=== PATIENT | male | born 1970 | race Caucasian/White ===

== ENCOUNTER 2017-09-30 11:30 | Outpatient (RCR) | payer MEDICARE, MEDICAID, SELFPAY ==
--- NOTE | 2017-09-25 10:21 | IE_ITS ---
Date: 09/25/17 Referring: Dr. Thu Prabhakar Diagnosis: (R) lateral epicondylitis, Tricep tendinitis SUBJECTIVE: History of Present Illness: Ever presents to PT reporting (R) lateral elbow pain beginning approximately 1 month ago without traumatic event. He states that he was working at [employer] at the time performing a lot of repetitive work , as he worked the [employer]. He has had no change in severity of symptoms since time of onset. He is (R) hand dominant. He reports pain to be constant increasing with use of (R) UE with episodic numbness in the hand with use. Pain Ratin-3/10 at rest and at worst is 7-10/10. Pain Location: Distal tricep as well as the lateral elbow into the proximal anterior forearm. Prior Level of Function: WNL Current Level of Function: Has pain with any type of gripping or grasping with (R) UE. Difficulty with heavy lifting, pain when sleeping on his (R) side. Previous Treatment: None for the elbow. Social: He just finished working at [employer] where he had worked for 10 years. 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 Comorbidities: Chronic headaches, hydrocephalis, inter cranial shunt, seizure disorder, multiple brain surgeries, (R) shoulder surgery, pt describes this as a bone spur removal. Falls in the last year: __X__ No ____Yes - How many? ____ - (if over 2, balance SM needs to be completed) Reported hospitalizations in the last year - __X__ No ____ Yes - Dates of admission/reason: Medications: Ibuprofen PRN but reports that this generally does not help his elbow discomfort. Quality of Life: __X__ Good Standardized Measures: DASH score: __46% Disability__ OBJECTIVE: Posture: Is poor with forward head, depression of (R) shoulder girdle compared to the (L), but with (B) shoulder protrusion, (R) scapular protrusion more than the (L) due to excessive (R) shoulder depression. With verbal cueing, he is able to correct his posture and has good symmetry, but he does not maintain this well voluntarily. Observation: Isometrical arm position, hypertrophy of the (R) extensor group musculature of the forearm. Gait: WNL Palpation: Tenderness along the proximal extensor group of the (R) forearm and common extensor tendon, as well as the medial fascia of the (R) elbow. Edema: None Girth measurements: Symmetrical (L) side despite visual hypertrophy. ROM: (R) wrist is full with pain at end range (R) wrist flexion and extension Full Elbow WNL Shoulder AROM 160* flexion/abduction due to pain in the (R) lateral elbow IR reaches L2 verus T8 at the (L) due to elbow pain ER reaches C7 verus T5 at the (L) again due to elbow pain C-spine mobility is WNL and non irritable (L) UE is WNL PROM (R) shoulder is full without exacerbation of (R) elbow as well as elbow and wrist movements being full with soft tissue drawing of the common extensor group at end range passive wrist flexion. Exacerbated with combination of finger flexion. Digits WNL and non irritable. Strength: (R) shoulder flexion and abduction is 4+/5 pain produced in the elbow IR and ER 5/5 with pain producing in the elbow Abduction and Extension is WNL Biceps/Triceps 5/5 with pain provocation at the elbow Wrist flexion is 5/5 no pain Wrist extension 4+/5 with pain resulting in the medial elbow Lumbricals and supination/pronation 5/5 and minimally symptomatic Neuro: WNL throughout (R) UE. Balance: N/A Special Tests: Positive lateral epicondylitis testing via resistance to (R) wrist extension, extensor digitorum with positive pain provocation, negative phalens and negative carpal tunnel compression, positive pain with over pressure stretching to the common extensor group. Negative Field Mahesh Impingement Testing, Negative TOS. Treatment: IE: [id number] Patient Education: HEP developed and reviewed see chart for specifics. KX applied to all codes ____ Yes __X__ No Manual therapy: ([id number]). IASTM down regulation throughout the (R) tricep and (R) common extensor group with fascia on stretch, CFM desensitization along the common extensor tendon and deep trigger release along the common extensor group of the (R) forearm. Rock Tape application with fascia on stretch for the common extensor group. Pt was instructed to use (R) commercial cock up splint which he already currently owns at all times unless he is at rest. He is also to wear this at night time. Also educated in the proper posture of the (R) shoulder and this allows for decreased demand of (R) common extensor group firing and reduce the strain to the elbow. Direct treatment time: 50 minutes Total treatment time: 50 minutes ASSESSMENT: Patient is a 46-year-old male, referred for PT services with the diagnosis of (R ) lateral epicondylitis and tricep tendinitis. Patient presents with clinical signs and symptoms consistent with (R) lateral epicondylitis secondary to (R) shoulder girdle weakness and (R) UE movement dysfunction, as demonstrated by the following impairment level findings: Hypertrophy of the (R) common extensor group, soft tissue dysfunction throughout the (R) UE particularly through the (R ) common extensor group and tricep. Active mobility deficits of the (R) shoulder , intrinsic and scapular stability weakness of the (R) shoulder girdle. Pain with sleeping on his (R) side, difficulty manipulating objects with the (R) hand including repetitive movements, gripping grasping and heavy object manipulation. Patient is assessed as: __X__ Low 19460 __[]__ Moderate 43516 __[]__ High 14371 complexity, based on the following: History: X See comorbidities and social history. Examination: X See above for functional limitations and impairments. Presentation: X Stable Decision-Making: X Low complexity 46 % Disability based on DASH __X__ Patient requires skilled PT intervention to remediate the above functional limitations to return to: __X__ Premorbid level of function __X__ Return to full functional mobility Prognosis: __X__ Excellent G-Codes: Patient's primary functional limitation is in the category of: __X__ Carrying, moving and handling objects: [id number] Projected goal: __X__ Carrying, moving, and handling objects -[id number] STG: __4__ weeks. 1. DASH improved to 20% disability. 2. No sleep disruption related to (R) UE. 3. Completing basic activities such as eating, writing, drinking a full glass of water and light to moderate activities without pain exceeding a 2/10 in the ( R) elbow. LTG: __8__ weeks. __X__ Return to premorbid level of function. __X__ Return to full, pain-free, functional mobility. __X__ Independent with self-maintenance program. PLAN: Patient to be seen 2 x per week, for 8 weeks, adjusting frequency of visits per patient symptoms and response to treatment. Treatment to include: X Manual therapy - [id number]: For soft tissue mobilization throughout the (R ) UE of the involved mentioned structures, soft tissue stretching, rock taping application. X Therapeutic exercise - [id number]- For gross (R) UE strengthening, and astabilization efforts with focus on eccentric control of the (R) common extensor group and (R) shoulder girdle stabilization and postural improvements. Thank you for this referral. Please do not hesitate to contact me with any questions or concerns regarding this patient's plan of care. Dr. Andino please sign below if you are in agreement with this patients plan of care, cc: Ray Andino MD
--- NOTE | 2017-09-30 12:26 | PTTR_ITS ---
DATE: 09/30/17 SUBJECTIVE: Had a day relief of pain following last treatment. 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 Work is generally where pain is exacerbated due to handling tray, gripping activities, etc. Pain remains local to R lateral epicondyle. OBJECTIVE: KX applied to all codes N/A Manual therapy: ([id number]). IASTM down regulation R bicep, forearm extensor group and CFM at common extensor tendon Extensor group stretching of R forearm Ulnar nerve flossing, x 10 Deep TPR extensor muscle belly Therapeutic procedures ([id number]). * HEP review: * See flow sheet: * Provided skilled instruction in proper exercise performance: * Provided skilled manual cues to facilitate proper muscle recruitment and/ or movement pattern: * x Other: Scapular and postural correction series in prone: Shoulder flexion, extension, and ER with 0#, 20x, verbal and manual cues for proper lat and lower trap recruitment as appropriate. These are added to HEP. Patient instructed to don wrist immobilizer at all times at work, just use larger glove to cover immobilizer, if this works with his work demands. Direct treatment time: 30 minutes Total treatment time: 30 minutes
== END 2017-10-23 23:59 | disposition home or self-care (01) ==
LOC: PT 11:30
PROVIDERS: PCP General Practice; Referring Provider Student in an Organized Health Care Education/Training Program; Visit Provider Student in an Organized Health Care Education/Training Program
DX: M77.11 Lateral epicondylitis, right elbow (principal); M79.89 Other specified soft tissue disorders
CPT/HCPCS: 97110; 97140; 97161

== ENCOUNTER 2017-10-03 10:07 | Emergency (ER) | payer MEDICARE, MEDICAID, SELFPAY ==
[2017-10-03 10:27] VITALS: BP 147/88; PULSE 88; RESP 16; TEMP 37.1; O2SAT 95
--- NOTE | 2017-10-03 10:46 | ED.GENADUL ---
Disposition Clinical Impression: Knee strain Disposition: HOME Condition: Fair Instructions: Swollen Knee Joint (ED) Additional Instructions: Encourage rest, ice, elevation. Tylenol and/or ibuprofen as needed for discomfort. Continue with Perez wrap to help support the need to help with discomfort. Please follow-up with primary care in the next 2 weeks if pain persists. If you develop new or worsening symptoms seek care urgently once again. Advance activities as tolerated. Referrals: Cl Bletran MD [Primary Care Provider] - Medical Decision Making - Medical Decision Making Patient presents today with chief complaint of right knee pain after twisting this yesterday. Reports that he was trying to get out of a pool when he twisted the knee and noted some minimal discomfort. States that today his pain has since increased. Ambulated into the department minimally antalgic gait. Exam is fairly benign. He has some diffuse discomfort but no effusion, no ligamentous laxity and no abnormality noted on exam. No soft tissue swelling is noted. Advised the patient and he strained his knee yesterday. Encourage rest, ice, elevation. He does not take anything for his discomfort as of yet. I have asked nursing staff to give patient Tylenol and ibuprofen to help with his discomfort. Patient reports an Perez wrap to help support the knee and help with discomfort. Advised to follow-up with primary care in the next 2 weeks for reevaluation. We discussed new/worsening symptoms when to seek care urgently once again. All of his questions and concerns were addressed and he is in agreement with this plan. History of Present Illness - General Chief complaint: Orthopedic Stated complaint: RT KNEE INJURY Time Seen by Provider: 10/03/17 10:44 Source: patient, RN notes reviewed Mode of arrival: ambulatory Limitations: no limitations - History of Present Illness Initial comments: Patient is a 46-year-old male presents today with chief complaint of right knee pain. He reports that yesterday, while swimming in a pool, he twisted his right knee. States that while trying to get out of the pool he place his knee up on the edge and noted a faint amount of discomfort along the medial and lateral aspect of the knee. Denies striking the knee. No true trauma. No pop. Patient reports that he has hyperextended his knee in the past and he did undergo physical therapy for this knee while in high school. No previous surgeries. No torn ligaments. Patient denies allergic choking incident. States that yesterday the pain was fairly minimal but when he woke this morning it was much worse and rates the pain at 8 or 9 out of 10. Denies any numbness or tingling. Has been ambulating with an antalgic gait. - Related Data Carbamazepine [Tegretol] 400 mg PO HS 10/22/12 Carbamazepine [Tegretol] 600 mg PO DAILY 10/22/12 Levothyroxine [Levothroid] 1.25 mcg PO HS 12/17/14 Amitriptyline [Elavil] 25 mg PO HS 04/10/16 Gemfibrozil 600 mg PO BID 04/10/16 Testosterone Cypionate 1.2 ml IM Q14D 04/10/16 Multivitamin [Animal Chews] 1 each PO DAILY 11/28/16 Acetaminophen [Acetaminophen Extra Strength] 500 mg PO Q6H PRN PRN #80 tablet 12/02/16 Sertraline HCl [Zoloft] 25 mg PO DAILY tab-cap 05/29/17 Ibuprofen 800 mg PO TID PRN PRN #90 tablet 09/01/17 Allergies Allergy/AdvReac Type Severity Reaction Status Date / Time latex Allergy Intermediate hives with Unverified 10/03/17 10:30 latex powdered gloves Penicillins Allergy Intermediate Hives Unverified 10/03/17 10:30 vancomycin Allergy Mild Skin Rash Unverified 10/03/17 10:30 Review of Systems Constitutional: no symptoms reported Respiratory: no symptoms reported Musculoskeletal: as per HPI Skin: denies: rash, lesions, change in color Neurological: as per HPI, abnormal gait. denies: numbness, paresthesias Past Medical History - Past Medical History Medical history: hypertension, seizures Migraines, hypothyroid, hydrocephalus. Surgical history: cholecystectomy, other (VP INFORMATICS shunt) Family history: other (Noncontributing family history) - Social History Alcohol use: none Drug use: none General Exam - General Limitations: no limitations General appearance: alert, in no apparent distress - Eye Eye exam: Present: normal apperance - Respiratory Respiratory exam: Absent: respiratory distress - Extremities Exam Extremities exam: Present: full ROM, tenderness, normal capillary refill. Absent: normal inspection (Exam of the patient's left lower extremity is significant for diffuse discomfort with palpation. No effusion. No discoloration. Full range of motion. Ligaments intact with varus and valgus stress testing as well as Manish exam. No pain elicited with ligamentous testing. Patient is able to straight leg raise. Pain is primarily along the medial lateral aspect of the joint line.), pedal edema, joint swelling, calf tenderness - Neurological Exam Neurological exam: Present: alert, abnormal gait (Patient is a minimally antalgic gait) - Psychiatric Psychiatric exam: Present: normal affect, normal mood - Skin Skin exam: Present: warm, dry, intact, normal color Course Vital Signs - 24 hr 10/03/17 10:27 Temperature 37.1 C Pulse 88 Respiratory 16 Rate Blood Pressure 147/88 Pulse Oximetry 95
[2017-10-03] MEDS: Acetaminophen 500 MG TAB 1000 MG PO (10:49)
[2017-10-03] MEDS: Ibuprofen 600 MG TAB PO (10:50)
== END 2017-10-03 10:53 | disposition home or self-care (01) ==
PROVIDERS: Emergency Provider Emergency Medicine; PCP General Practice
DX: S83.91XA Sprain of unspecified site of right knee, initial encounter (principal); X50.9XXA Other and unspecified overexertion or strenuous movements or postures, initial encounter; Y93.11 Activity, swimming; I10 Essential (primary) hypertension
CPT/HCPCS: 99282 ×2

== ENCOUNTER → 2017-10-30 08:00 | Outpatient (BNVA) | payer MEDICARE, MEDICAID, SELFPAY | PROVIDERS: PCP General Practice; Referring Provider General Practice; Visit Provider Student in an Organized Health Care Education/Training Program | DX: M77.11 Lateral epicondylitis, right elbow (principal) | CPT/HCPCS: 99213; NC OV ==

== ENCOUNTER 2017-11-10 14:10 | Emergency (ER) | payer MEDICARE, MEDICAID, SELFPAY ==
[2017-11-10 14:14] VITALS: BP 153/105; PULSE 106; RESP 16; TEMP 37.1; O2SAT 96
--- NOTE | 2017-11-10 14:19 | DI.CT_ITS ---
SYMPTOMS/DIAGNOSIS: SHUNT, HEADACHE CRANIAL CT: A right frontal shunt is again demonstrated when compared with previous images. The patient is status post right frontal craniotomy. There is no evidence of an intra/extra-axial hemorrhage or edema. The ventricles are unremarkable. There is no skull fracture. The paranasal sinuses and mastoid air cells are normal. SUMMARY: No acute intracranial abnormality is demonstrated.
--- NOTE | 2017-11-10 14:33 | W.ED.GENAD ---
Discharge Plan Disposition Patient Disposition: HOME Discharge Details Chief Complaint: Headache Clinical Impression: Headache, Abdominal pain Primary Care Provider: Cl Beltran ED Provider: David Yadav Home Meds and New Rx's Prescriptions: Continue sertraline [Zoloft] 25 MG tablet 25 mg PO DAILY RF: 0 ibuprofen 800 MG tablet 800 mg PO TID PRN PRNQty: 90 RF: 3 carbamazepine [Tegretol] 200 MG tablet 400 mg PO HS RF: 0 carbamazepine [Tegretol] 200 MG tablet 600 mg PO DAILY RF: 0 levothyroxine 25 MCG tablet 1.25 mcg PO HS RF: 0 pediatric multivitamin [ANIMAL CHEWS] 1 EACH tablet,chewable 1 ea PO DAILY RF: 0 acetaminophen [Acetaminophen Extra Strength] 500 MG tablet 500 mg PO Q6H PRN PRNQty: 80 RF: 3 testosterone cypionate 100 MG/ML oil 1.2 ml IM Q14D RF: 0 amitriptyline 25 MG tablet 25 mg PO HS RF: 0 gemfibrozil 600 MG tablet 600 mg PO BID RF: 0 Discharge Instructions Instructions: Abdominal Pain (ED), General Headache (ED) Additional Instructions: Please follow-up with your primary care physician and neurosurgeon. Call tomorrow to arrange follow-up. Return to the ER for any worsening or new concerning symptoms. CT imaging of your abdomen revealed an indeterminate 10 mm low-density lesion within the left hepatic lobe. Be sure to discuss this finding with your primary care physician in follow-up. You may need additional diagnostic imaging in the future. Referrals: Cl Beltran MD [Primary Care Provider] - Medical Decision Making [facility] Narrative Medical decision making narrative: 14:40 --46-year-old male with history of hydrocephalus status post shunt placement, here with headache over the past 2 weeks as well as right upper quadrant abdominal pain. Patient has required 45 shunt revisions in the past. Patient feels his symptoms are currently related to shunt dysfunction. Plan to obtain shunt series as well as CT head. --CT head interpreted by radiology: No acute findings. I spoke with Dr. Newman to discuss shunt series and he notes no acute findings. Labs reviewed and nondiagnostic. I reviewed the results with the patient. I offered analgesia and patient declined. We will send imaging to [facility] and I have requested neurosurgical consultation. 17:00 --I spoke with the neuro surgeon pony ride operator at [facility], I relayed the patient's history, exam findings, diagnostic results, and he reviewed the shunt series and CT head. He recommends obtaining additional abdominal CT imaging to assess for cyst in relation to shunt. If no cyst, he recommends outpatient follow-up. Patient reassessed and has remained stable. He agrees to Compazine and benadryl IV. 18:15 --CT of the abdomen and pelvis interpreted by radiology: No acute findings, TECHNICAL PHOTOGRAPHER shunt catheter tip in the right midabdomen, no significant fluid collection, indeterminate 10 mm diameter low-density lesion in the left hepatic lobe, follow-up abdominal CT or MR in 6 months is recommended. Results were conveyed to the patient. Patient reassessed: He notes pain has improved after medication. Patient understands importance of timely follow-up and that he should return immediately should you have any worsening or new concerning symptoms. Lab Data Lab results reviewed: Yes I reviewed the patient's lab results. Laboratory Tests 11/10/17 11/10/17 11/10/17 14:35 14:35 15:51 WBC 9.26 RBC 5.62 Hgb 18.0 H Hct 51.7 H MCV 92.0 MCH 32.0 MCHC 34.8 RDW 12.1 Plt Count 316 MPV 9.3 Immature Gran % 0.1 Neutrophils % 78.0 Lymphocytes % 14.8 Monocytes % 6.4 Eosinophils % 0.4 Basophils % 0.3 Absolute Neutrophils 7.22 H Absolute Lymphocytes 1.37 Absolute Monocytes 0.59 Absolute Eosinophils 0.04 Absolute Basophils 0.03 Sodium 140 Cancelled Potassium 3.9 Cancelled Chloride 102 Cancelled Carbon Dioxide 26.9 Cancelled Anion Gap 11.1 H Cancelled BUN 12 Cancelled Creatinine 1.16 Cancelled Estimated GFR/1.73 m2 >= 60.00 Cancelled Glucose 120 H Cancelled Calcium 8.9 Cancelled Magnesium Cancelled Total Bilirubin 0.3 Cancelled AST 13 L Cancelled ALT 18 Cancelled Alkaline Phosphatase 102 Cancelled Troponin I Cancelled Total Protein 8.8 H Cancelled Albumin 4.4 Cancelled HPI - General Adult General Mode of arrival: ambulatory. Date/Time Provider Initiated Documentation: 11/10/17 14:18. Limitations to Documentation: no limitations. Information obtained by: patient. HPI Narrative: 46-year-old male with history of hydrocephalus status post shunt placement, shunt has required 45 revisions in the past, here with chief complaint of headache. Patient notes generalized headache that feels like pressure. Pain is moderate and rated 6/10. Pain is worse when he attempts to look up. He has associated pain in his right upper abdomen. Patient is concerned that he may have an issue with his shunt. He states that he has had same symptoms in the past with shunt obstruction. Patient denies associated numbness or weakness. No fevers. Related Data Home Medications Medication Instructions Recorded Confirmed carbamazepine [Tegretol] 400 mg PO HS 10/22/12 11/10/17 carbamazepine [Tegretol] 600 mg PO DAILY 10/22/12 11/10/17 levothyroxine 1.25 mcg PO HS 12/17/14 11/10/17 amitriptyline 25 mg PO HS 04/10/16 10/30/17 gemfibrozil 600 mg PO BID 04/10/16 11/10/17 testosterone cypionate 1.2 ml IM Q14D 04/10/16 11/10/17 pediatric multivitamin [ANIMAL 1 ea PO DAILY 11/28/16 11/10/17 CHEWS] sertraline [Zoloft] 25 mg PO DAILY tab-cap 05/29/17 11/10/17 ibuprofen 800 mg PO TID PRN PRN #90 tab 09/01/17 11/10/17 Previous Rx's Medication Instructions Recorded acetaminophen [Acetaminophen Extra 500 mg PO Q6H PRN PRN #80 tab 12/02/16 Strength] Allergies Allergy/AdvReac Type Severity Reaction Status Date / Time latex Allergy Intermediate hives with Unverified 11/10/17 14:18 latex powdered gloves Penicillins Allergy Intermediate Hives Unverified 11/10/17 14:18 vancomycin Allergy Mild Skin Rash Unverified 11/10/17 14:18 General Stated Complaint: Headache GLO: 2 Review of Systems Review of Systems All systems reviewed & are unremarkable except as noted in HPI and below Constitutional Reports as per HPI Eyes Patient Reports as per HPI Musculoskeletal Denies numbness Neurologic Denies focal weakness and Denies numbness PFSH Medical History Abdominal pain Chronic headaches Hydrocephalus Intracranial shunt Social History Smoking/Tobacco Use Status: Never Exam Const General: cooperative, no acute distress, well developed and not in distress Orientation: alert and awake Limitations: mental status not altered [facility] Head: normal to inspection and normocephalic Mouth: moist mucous membranes Throat: posterior oropharynx normal and uvula midline Eyes Conjunctivae: conjunctivae normal Other: Strabismus noted and chronic; EOM intact but when looks up, he has discomfort Neck Neck: meningismus present, trachea midline, supple and no lymphadenopathy noted Resp Effort & Inspection: normal respiratory effort, cough, not labored and no respiratory distress Auscultation: clear to auscultation bilaterally, no rales, no rhonchi and no wheezes Cardio Jugular venous pressure: no JVD Rate: regular rate Rhythm: regular rhythm Heart Sounds: S1 normal, S2 normal, no gallops, no murmurs and no rubs GI Palpation: soft, no guarding, not rigid and tender in the RUQ Skin General skin exam: no rashes or lesions noted and dry skin Other: warm Neuro General: alert, awake, oriented x3 and CN's II-XI intact bilaterally Cranial Nerves: PERRL Motor: muscle tone normal throughout and strength 5/5 throughout Sensory Exam: no sensory deficits noted Psych Appearance: grossly normal Affect: normal affect Course Vital Signs Temperature 37.1 C 11/10/17 14:14 Pulse 106 H 11/10/17 14:14 Respiratory Rate 16 11/10/17 14:14 Blood Pressure 153/105 H 11/10/17 14:14 Pulse Oximetry 96 11/10/17 14:14 Temperature 37.1 C 11/10/17 14:14 Pulse 106 H 11/10/17 14:14 Respiratory Rate 16 11/10/17 14:14 Blood Pressure 153/105 H 11/10/17 14:14 Pulse Oximetry 96 11/10/17 14:14
--- NOTE | 2017-11-10 14:43 | ED.GENADUL_ITS ---
Discharge Plan Disposition Patient Disposition: HOME Discharge Details Chief Complaint: Headache Clinical Impression: Headache, Abdominal pain Primary Care Provider: Cl Beltran ED Provider: David Yadav Home Meds and New Rx's Prescriptions: Continue sertraline [Zoloft] 25 MG tablet 25 mg PO DAILY RF: 0 ibuprofen 800 MG tablet 800 mg PO TID PRN PRNQty: 90 RF: 3 carbamazepine [Tegretol] 200 MG tablet 400 mg PO HS RF: 0 carbamazepine [Tegretol] 200 MG tablet 600 mg PO DAILY RF: 0 levothyroxine 25 MCG tablet 1.25 mcg PO HS RF: 0 pediatric multivitamin [ANIMAL CHEWS] 1 EACH tablet,chewable 1 ea PO DAILY RF: 0 acetaminophen [Acetaminophen Extra Strength] 500 MG tablet 500 mg PO Q6H PRN PRNQty: 80 RF: 3 testosterone cypionate 100 MG/ML oil 1.2 ml IM Q14D RF: 0 amitriptyline 25 MG tablet 25 mg PO HS RF: 0 gemfibrozil 600 MG tablet 600 mg PO BID RF: 0 Discharge Instructions Instructions: Abdominal Pain (ED), General Headache (ED) Additional Instructions: Please follow-up with your primary care physician and neurosurgeon. Call tomorrow to arrange follow-up. Return to the ER for any worsening or new concerning symptoms. CT imaging of your abdomen revealed an indeterminate 10 mm low-density lesion within the left hepatic lobe. Be sure to discuss this finding with your primary care physician in follow-up. You may need additional diagnostic imaging in the future. Referrals: Cl Beltran MD [Primary Care Provider] - Medical Decision Making [facility] Narrative Medical decision making narrative: 14:40 --46-year-old male with history of hydrocephalus status post shunt placement, here with headache over the past 2 weeks as well as right upper quadrant abdominal pain. Patient has required 45 shunt revisions in the past. Patient feels his symptoms are currently related to shunt dysfunction. Plan to obtain shunt series as well as CT head. --CT head interpreted by radiology: No acute findings. I spoke with Dr. Newman to discuss shunt series and he notes no acute findings. Labs reviewed and nondiagnostic. I reviewed the results with the patient. I offered analgesia and patient declined. We will send imaging to [facility] and I have requested neurosurgical consultation. 17:00 --I spoke with the neuro surgeon electronics technician apprentice at [facility], I relayed the patient's history, exam findings, diagnostic results, and he reviewed the shunt series and CT head. He recommends obtaining additional abdominal CT imaging to assess for cyst in relation to shunt. If no cyst, he recommends outpatient follow-up. Patient reassessed and has remained stable. He agrees to Compazine and benadryl IV. 18:15 --CT of the abdomen and pelvis interpreted by radiology: No acute findings , [employer] OPERATOR shunt catheter tip in the right midabdomen, no significant fluid collection , indeterminate 10 mm diameter low-density lesion in the left hepatic lobe, follow-up abdominal CT or MR in 6 months is recommended. Results were conveyed to the patient. Patient reassessed: He notes pain has improved after medication. Patient understands importance of timely follow-up and that he should return immediately should you have any worsening or new concerning symptoms. Lab Data Lab results reviewed: Yes I reviewed the patient's lab results. Laboratory Tests 11/10/17 11/10/17 11/10/17 14:35 14:35 15:51 WBC 9.26 RBC 5.62 Hgb 18.0 H Hct 51.7 H MCV 92.0 MCH 32.0 MCHC 34.8 RDW 12.1 Plt Count 316 MPV 9.3 Immature Gran % 0.1 Neutrophils % 78.0 Lymphocytes % 14.8 Monocytes % 6.4 Eosinophils % 0.4 Basophils % 0.3 Absolute Neutrophils 7.22 H Absolute Lymphocytes 1.37 Absolute Monocytes 0.59 Absolute Eosinophils 0.04 Absolute Basophils 0.03 Sodium 140 Cancelled Potassium 3.9 Cancelled Chloride 102 Cancelled Carbon Dioxide 26.9 Cancelled Anion Gap 11.1 H Cancelled BUN 12 Cancelled Creatinine 1.16 Cancelled Estimated GFR/1.73 m2 >= 60.00 Cancelled Glucose 120 H Cancelled Calcium 8.9 Cancelled Magnesium Cancelled Total Bilirubin 0.3 Cancelled AST 13 L Cancelled ALT 18 Cancelled Alkaline Phosphatase 102 Cancelled Troponin I Cancelled Total Protein 8.8 H Cancelled Albumin 4.4 Cancelled HPI - General Adult General Mode of arrival: ambulatory . Date/Time Provider Initiated Documentation: 11/10/17 14:18 . Limitations to Documentation: no limitations . Information obtained by: patient . HPI Narrative: 46-year-old male with history of hydrocephalus status post shunt placement, shunt has required 45 revisions in the past, here with chief complaint of headache. Patient notes generalized headache that feels like pressure. Pain is moderate and rated 6/10. Pain is worse when he attempts to look up. He has associated pain in his right upper abdomen. Patient is concerned that he may have an issue with his shunt. He states that he has had same symptoms in the past with shunt obstruction. Patient denies associated numbness or weakness. No fevers. Related Data Home Medications Medication Instructions Recorded Confirmed carbamazepine [Tegretol] 400 mg PO HS 10/22/12 11/10/17 carbamazepine [Tegretol] 600 mg PO DAILY 10/22/12 11/10/17 levothyroxine 1.25 mcg PO HS 12/17/14 11/10/17 amitriptyline 25 mg PO HS 04/10/16 10/30/17 gemfibrozil 600 mg PO BID 04/10/16 11/10/17 testosterone cypionate 1.2 ml IM Q14D 04/10/16 11/10/17 pediatric multivitamin [ANIMAL 1 ea PO DAILY 11/28/16 11/10/17 CHEWS] sertraline [Zoloft] 25 mg PO DAILY tab-cap 05/29/17 11/10/17 ibuprofen 800 mg PO TID PRN PRN #90 tab 09/01/17 11/10/17 Previous Rx's Medication Instructions Recorded acetaminophen [Acetaminophen Extra 500 mg PO Q6H PRN PRN #80 tab 12/02/16 Strength] Allergies Allergy/AdvReac Type Severity Reaction Status Date / Time latex Allergy Intermediate hives with Unverified 11/10/17 14:18 latex powdered gloves Penicillins Allergy Intermediate Hives Unverified 11/10/17 14:18 vancomycin Allergy Mild Skin Rash Unverified 11/10/17 14:18 General Stated Complaint: Headache GLO: 2 Review of Systems Review of Systems All systems reviewed & are unremarkable except as noted in HPI and below Constitutional Reports as per HPI Eyes Patient Reports as per HPI Musculoskeletal Denies numbness Neurologic Denies focal weakness and Denies numbness PFSH Medical History Abdominal pain Chronic headaches Hydrocephalus Intracranial shunt Social History Smoking/Tobacco Use Status: Never Exam Const General: cooperative, no acute distress, well developed and not in distress Orientation: alert and awake Limitations: mental status not altered [facility] Head: normal to inspection and normocephalic Mouth: moist mucous membranes Throat: posterior oropharynx normal and uvula midline Eyes Conjunctivae: conjunctivae normal Other: Strabismus noted and chronic; EOM intact but when looks up, he has discomfort Neck Neck: meningismus present, trachea midline, supple and no lymphadenopathy noted Resp Effort & Inspection: normal respiratory effort, cough, not labored and no respiratory distress Auscultation: clear to auscultation bilaterally, no rales, no rhonchi and no wheezes Cardio Jugular venous pressure: no JVD Rate: regular rate Rhythm: regular rhythm Heart Sounds: S1 normal, S2 normal, no gallops, no murmurs and no rubs GI Palpation: soft, no guarding, not rigid and tender in the RUQ Skin General skin exam: no rashes or lesions noted and dry skin Other: warm Neuro General: alert, awake, oriented x3 and CN's II-XI intact bilaterally Cranial Nerves: PERRL Motor: muscle tone normal throughout and strength 5/5 throughout Sensory Exam: no sensory deficits noted Psych Appearance: grossly normal Affect: normal affect Course Vital Signs Temperature 37.1 C 11/10/17 14:14 Pulse 106 H 11/10/17 14:14 Respiratory Rate 16 11/10/17 14:14 Blood Pressure 153/105 H 11/10/17 14:14 Pulse Oximetry 96 11/10/17 14:14 Temperature 37.1 C 11/10/17 14:14 Pulse 106 H 11/10/17 14:14 Respiratory Rate 16 11/10/17 14:14 Blood Pressure 153/105 H 11/10/17 14:14 Pulse Oximetry 96 11/10/17 14:14
[2017-11-10 14:47] LABS: Abs Immature Grans 0.01 k/cumm (0.0-0.09); Absolute Basophil Count 0.03 k/cumm (0.0-0.2); Absolute Eosinophil Count 0.04 k/cumm (0.0-0.7); Absolute Lymphocyte Count 1.37 k/cumm (1.2-3.4); Absolute Monocyte Count 0.59 k/cumm (0.11-0.7); Absolute Neutrophil Count 7.22 k/cumm (1.2-6.7); Basophils % 0.3; Eosinophils % 0.4; HCT 51.7 % (40.0-50.0); Immature Grans % 0.1; Lymphocytes % 14.8; Mean Corp. HGB Concentration 34.8 g/dL (32.0-36.0); Mean Platelet Volume 9.3 fL (8.0-11.0); Monocytes % 6.4; Platelet Count 316 x1000/uL (130-400); RBC 5.62 m/cumm (4.50-6.00); RBC Distribution Width 12.1 % (11.8-14.1); White Blood Cell Count 9.26 k/cumm (4.4-10.8)
[2017-11-10] MEDS: Normal Saline Flush 10 ML SYR IVP (14:50)
[2017-11-10 15:07] LABS: ALT 18 U/L (12-78); AST 13 U/L (15-37); Albumin 4.4 g/dL (3.4-5.0); Alkaline Phosphatase 102 U/L (46-116); Anion Gap 11.1 mmol/L (3-11); BUN 12 mg/dL (7-18); Bilirubin, Total 0.3 mg/dL (0.2-1.0); CO2 26.9 mmol/L (21.0-32.0); CREATININE 1.16 mg/dL (0.70-1.30); Calcium 8.9 mg/dL (8.5-10.1); Chloride 102 mmol/L (98-107); Glucose 120 mg/dL (70-100); Potassium 3.9 mmol/L (3.5-5.1); Sodium 140 mmol/L (136-145); Total Protein 8.8 g/dL (6.4-8.2)
--- NOTE | 2017-11-10 15:47 | DI.RAD_ITS ---
SYMPTOMS/DIAGNOSIS: SHUNT, HEADACHE SHUNT SERIES; Images of the skull, neck, thorax and abdomen for shunt evaluation. A right frontal shunt is demonstrated. A right temporal craniotomy was demonstrated at CT and there are two other radiolucencies in the skull, apparently from prior shunt placement. The shunt tubing as demonstrated appears intact in the neck, thorax and ends in the right lower quadrant in the abdomen. SUMMARY: The shunt tubing appears intact.
--- NOTE | 2017-11-10 17:01 | DI.CT_ITS ---
SYMPTOM/DIAGNOSIS: RUQ ABD PAIN, CSF SHUNT ABDOMEN AND PELVIC CT: CT examination of the abdomen and pelvis was performed with intravenous infusion of 100 cc's of Omnipaque 350. Images obtained through the lung bases are unremarkable. Note is made of a 10 mm. in diameter, fairly well circumscribed, low attenuation left lobe hepatic lesion seen anteriorly. This is most likely to represent hepatic hemangioma or cyst. Follow up CT suggested in 6 months to assess the stability of this lesion. Gallbladder has been surgically removed. No biliary dilatation is seen. Pancreas is normal in appearance. Spleen appears normal. Abdominal aorta is of normal diameter and no major vascular abnormality is seen. No abdominal or pelvic adenopathy is seen. Adrenals and kidneys are unremarkable in appearance. No urinary tract calcification or obstruction. Small fat containing bilateral inguinal hernias noted. Appendix is normal. No evidence of diverticulitis or bowel obstruction. There is a ventriculoperitoneal shunt in place. No significant fluid collections identified. CONCLUSION: No evidence of acute abnormalities. Indeterminate left lobe hepatic lesion may be evaluated with repeat CT in 6 months.
[2017-11-10] MEDS: Omnipaque 350 MG/ML 100 ML BTL IV (17:39)
[2017-11-10] MEDS: Lactated Ringers 500 ML IV (17:40)
[2017-11-10] MEDS: Prochlorperazine 10 MG/2 ML VIAL IVP (17:40)
--- NOTE | 2017-11-10 17:56 | DI.VRAD_ITS ---
EXAM: CT Abdomen and Pelvis With Intravenous Contrast CLINICAL HISTORY: 46 years old, male; Signs and symptoms; Other: Abdominal pain right upper, cs; Prior surgery; Surgery date: 6+ months TECHNIQUE: Axial computed tomography images of the abdomen and pelvis with intravenous contrast. All CT scans at this facility use at least one of these dose optimization techniques: automated exposure control; mA and/or kV adjustment per patient size (includes targeted exams where dose is matched to clinical indication); or iterative reconstruction. Coronal and sagittal reformatted images were created and reviewed. CONTRAST: 100 mL of omnipaque 350 administered intravenously. COMPARISON: No relevant prior studies available. FINDINGS: Lung bases: Unremarkable. No mass. No consolidation. ABDOMEN: Liver: Indeterminate 10 mm low-density lesion within the left hepatic lobe (axial image 19). Gallbladder and bile ducts: Status post cholecystectomy. No ductal dilation. Pancreas: Unremarkable. No mass. No ductal dilation. Spleen: Unremarkable. No splenomegaly. Adrenals: Unremarkable. No mass. Kidneys and ureters: Unremarkable. No solid mass. No hydronephrosis. Stomach and bowel: Unremarkable. No obstruction. No mucosal thickening. PELVIS: Appendix: No findings to suggest acute appendicitis. Bladder: Unremarkable. No mass. Reproductive: Unremarkable as visualized. ABDOMEN and PELVIS: Intraperitoneal space: Unremarkable. No free air. No significant fluid collection. Bones/joints: No acute fracture. No dislocation. Soft tissues: Unremarkable. Vasculature: Unremarkable. No abdominal aortic aneurysm. Lymph nodes: Unremarkable. No enlarged lymph nodes. Tubes, lines and devices: Ventriculoperitoneal shunt catheter present with tip in the right side of the mid abdomen. IMPRESSION: 1. No acute findings. 2. Ventriculoperitoneal shunt catheter tip in the right midabdomen. 3. Indeterminate 10 mm diameter low-density lesion in the left hepatic lobe. ACR White Paper guidelines (Berland, et al. JACR 2010; 7(10):752-00) suggest follow-up abdominal CT or MR in 6 months. Dictated and Authenticated by: Pradeep Stroud MD. Ordering:ARTIE DIAZ MD
[2017-11-10] MEDS: diphenhydrAMINE 50 MG/ML VIAL 25 MG IVP (18:03)
[2017-11-10 18:40] VITALS: BP 138/98; PULSE 67; RESP 16; TEMP 37.1; O2SAT 95
== END 2017-11-10 18:39 | disposition home or self-care (01) ==
PROVIDERS: Emergency Provider Student in an Organized Health Care Education/Training Program; PCP General Practice
DX: R51 Headache (principal); R93.2 Abnormal findings on diagnostic imaging of liver and biliary tract; R10.11 Right upper quadrant pain; G91.9 Hydrocephalus, unspecified; Z98.2 Presence of cerebrospinal fluid drainage device; I10 Essential (primary) hypertension
CPT/HCPCS: 36415; 80053; 96361; 96374; 96375; 99285; 70360; 70450; 71045; 72050; 74018; 74177; 83735; 84484; 85025; J0780; J1200; J3490

== ENCOUNTER → 2017-12-04 09:10 | Outpatient (BNVA) | payer MEDICARE, MEDICAID, SELFPAY | PROVIDERS: PCP General Practice; Referring Provider General Practice; Visit Provider Surgery | DX: R10.33 Periumbilical pain (principal) | CPT/HCPCS: 99203; 99213 ==

== ENCOUNTER 2017-12-05 09:15 | Outpatient (CLI) | payer MEDICARE, MEDICAID, SELFPAY ==
[2017-12-05 11:04] LABS: Cholesterol 172 mg/dL (50-200); Triglyceride 109 mg/dL (30-150)
[2017-12-05 11:19] LABS: ALT 17 U/L (12-78); AST 8 U/L (15-37); Alkaline Phosphatase 89 U/L (46-116); Amylase 47 U/L (25-115); Bilirubin, Direct 0.08 mg/dL (0.00-0.20); Bilirubin, Total 0.3 mg/dL (0.2-1.0); Lipase 360 U/L (73-393); Total Protein 7.4 g/dL (6.4-8.2)
== END 2017-12-05 09:35 ==
PROVIDERS: PCP General Practice; Visit Provider Surgery
DX: K85.90 Acute pancreatitis without necrosis or infection, unspecified (principal); R10.33 Periumbilical pain; R10.84 Generalized abdominal pain
CPT/HCPCS: 36415; 80076; 83690; 82150; 82465; 84478

== ENCOUNTER 2017-12-11 12:00 | Outpatient (CLI) | payer MEDICARE, MEDICAID, SELFPAY | END 2017-12-11 12:20 | PROVIDERS: PCP General Practice; Referring Provider Surgery; Visit Provider Physical Therapy Assistant | DX: R10.9 Unspecified abdominal pain (principal) | CPT/HCPCS: 99213 ==

== ENCOUNTER 2017-12-17 07:48 | Day surgery (SDC) | payer MEDICARE, MEDICAID, SELFPAY ==
--- NOTE | 2017-12-17 06:31 | COLE_ITS ---
Date of service: 12/17/17 Colonoscopy Report Date of procedure: 12/17/17 Pre-op diagnosis general: Abdominal pain Post-op diagnosis procedure note: other (mild gastritis and esophagitis, multiple polyps in the large bowel) Procedure: EGD and Colonoscopy Surgeon: Adeola Nowak Anesthesia proc note operative: MAC (Cl gardner CRNA) Estimated blood loss (mL): 3 Pathology: other (multiple polyps) Complications: None Disposition: same day Indications: Mr. Costa is a 47-year-old gentleman who is been experiencing right upper quadrant periumbilical pain. The pain is right around the scar tissue from his shunt surgery. He also has noted fatty stools and more loose stools than normal. Labs to check his liver and pancreas were unremarkable. Risks, benefits and complications of an upper and lower endoscopy reviewed with him and he wished to proceed. No guarantees were given or implied. Prep: Miralax/Dulcolax Procedure Start Time: 08:42 Procedure End Time: 09:33 Retraction Time: 29 minutes Findings: Upper endoscopy- mild gastritis and esophagitis. This finding doesnt explain his pain and is most likely due to ibuprofen use Colonoscopy: multiple polyps. Nothing to explain his pain Procedure Description: After informed consent was obtained the patient was taken to the procedure room and placed in a left decubitous position. Monitors were applied and a time out was done. The patients name, date of , procedure, allergies to medications and metal in their body was reviewed. The patient was then sedated. A bite block was placed. The Gastroscope was introduced and advanced through the oropharynx which was grosssly normal. The scope was advanced into the esophagus. The proximal and mid- esophagus were normal. In the distal esophagus there was mild inflammation. The scope was advanced into the stomach, through the pylorus into the duodenum. In the duodenum there was no inflammation. The scope was retracted into the stomach. There was mild inflammation. Biopsies were done of the antrum. The scope was retroflexed. The cardia and fundus were normal. The scope was straightened and retracted back into the esophagus. Biopsies of the GE junction were done. The Z-line was regular. The GE junction was at 35 cm. The scope was removed. The patients bed was turned around while still asleep. While still sedated and comfortable a rectal exam was done. External exam was normal. Internal exam revealed a normal sphincter tone and no palpable masses. The prostate was normal. The scope was then introduced and retroflexed. No internal hemorrhoids were identified. The scope was then advanced to the cecum without difficulty. The TI and appendiceal orifice were identified. The prep was adequate. The scope was then slowly retracted over 29 minutes back into the rectum. Multiple polyps were removed with cold forceps. One polyp in the cecum, 2 in the ascending polyps, 1 transverse colon, 2 ascending polyps. The scope was removed and the patient was woken up and taken back to Same day surgery in stable condition. The patient tolerated the procedure well and there were no immediate complications. Follow up: The patient should follow up in 5 years unless they develop changes in bowel habits or other new gastrointestinal complaints. [place] [facility] [place] his abdominal pain that is at his scar site.
--- NOTE | 2017-12-17 06:40 | W.PM.DSUDISC ---
Discharge Plan Disposition Patient Disposition: HOME Condition: Good Discharge Details Reason For Visit: ABD PAIN Attending Provider: Adeola Nowak Primary Care Provider: Cl Beltran Home Meds and New Rx's Prescriptions: New ranitidine HCl [Zantac] 150 mg tablet 150 mg PO BID Qty: 60 RF: 0 Continue multivitamin tablet,chewable 1 tab PO DAILY RF: 0 sertraline [Zoloft] 25 MG tablet 25 mg PO DAILY RF: 0 carbamazepine [Tegretol] 200 MG tablet 400 mg PO HS RF: 0 carbamazepine [Tegretol] 200 MG tablet 600 mg PO DAILY RF: 0 levothyroxine 25 MCG tablet 1.25 mcg PO HS RF: 0 testosterone cypionate 100 MG/ML oil 1.2 ml IM Q14D RF: 0 amitriptyline 25 MG tablet 25 mg PO HS RF: 0 gemfibrozil 600 MG tablet 600 mg PO BID RF: 0 Discontinued ibuprofen 800 MG tablet 800 mg PO TID PRN PRNQty: 90 RF: 3 Discharge Instructions Instructions: Colonoscopy (DC), Upper Endoscopy (DC), Gastritis (DC), Esophagitis (DC), Colorectal Polyps (DC) Additional Instructions: Findings:1. Mild inflammation of the stomach and esophagus 2. Multiple polyps in the large bowel Nothing to explain your pain Follow up: with neurosurgeon at [facility] [place] New Medications: Zantac 150 mg 2 x a day Please call if you develop: fevers >101.5 Nausea or Vomiting Non Transient abdominal pain Worsening shortness of breath 1. Because there will be medication in your system for the next 24 hours, you may feel a little sleepy. Your coordination will be affected. Therefore: a. Do not drive or operate dangerous equipment for 24 hours. b. Do not drink alcohol beverages for 24 hours (not even beer). c. Plan to go home and rest for the day. 2. Generally there are no restrictions on your activity after a day or so has gone by, but you may feel a bit fatigued for a few days. 3 After you arrive home you may have a light meal and return to a normal diet as you can tolerate it without feeling sick to your stomach. 4. After surgery, you may feel pain or discomfort. This should be only transient, but if it persists please contact your doctor. 5. If there are any questions regarding the findings of your procedure, please feel free to contact your doctor. 6. If you are unable to contact your doctor with a problem, contact the [facility] at [phone]. 7. Continue all your regular medications unless directed otherwise. I understand the above instructions and have no questions. Signature of Patient or Responsible Adult Escort Date/Time Name of Responsible Adult Escort Signature of Nurse Date/Time Activity:: Activity as Tolerated Diet:: As Tolerated Discharge Orders Discharge Orders: Discharge Order (Routine); Ordered 12/17/17 Ordered By: Adeola Nowak DS: Diagnosis Discharge Diagnosis (1) Colorectal polyp detected on colonoscopy: Status: Acute (2) Esophagitis: Status: Acute (3) Gastritis: Status: Acute
[2017-12-17 07:58] VITALS: BP 137/103; PULSE 86; RESP 16; TEMP 36.2; O2SAT 99
[2017-12-17] MEDS: Lactated Ringers 1,000 ML 80 ML IV (08:05)
--- NOTE | 2017-12-17 08:45 | STOM_PTH ---
PATIENT: Chapin Costa LOC: [facility] U#:[id number] AGE/SX: 47/M ROOM: RE12/17/[address]: Adeola Nowak MD : 1970 BED: DIS: 12/17/2017 SPEC #: [id number] RECD: 12/17/17 12:55 STATUS: JOHN REQ #: [id number] COLLIN: 12/17/17 08:[address]: Adeola Nowak DEPT: Surgical Specimen RECD BY: Lupe Pierce ENTERED: 12/17/17 12:58 SP TYPE: STOMACH OTHR DR: Cl Beltran Tissues: 1 - STOMACH BIOPSY 2 - ESOPHAGUS BIOPSY 3 - BIOPSY BOWEL 4 - BIOPSY BOWEL 5 - BIOPSY BOWEL 6 - BIOPSY BOWEL Procedures: GROSS AND MICRO LEVEL 4 Comments: [id number]
[2017-12-17 10:08] VITALS: BP 136/98; PULSE 75; RESP 18; TEMP 36; O2SAT 97
== END 2017-12-17 10:40 | disposition home or self-care (01) ==
PROVIDERS: PCP General Practice; Visit Provider Surgery
PROC: (CPT 43239; principal; 2017-12-17 09:15)
DX: R19.4 Change in bowel habit (principal); D12.0 Benign neoplasm of cecum; D12.2 Benign neoplasm of ascending colon; D12.3 Benign neoplasm of transverse colon; D12.4 Benign neoplasm of descending colon; R10.11 Right upper quadrant pain; K21.0 Gastro-esophageal reflux disease with esophagitis; K31.89 Other diseases of stomach and duodenum; Z98.2 Presence of cerebrospinal fluid drainage device; I10 Essential (primary) hypertension
CPT/HCPCS: 43239; 45380; 88305; J2250; J3010

== ENCOUNTER → 2017-12-21 10:36 | Outpatient (BNVA) | payer MEDICARE, MEDICAID, SELFPAY | PROVIDERS: PCP General Practice; Referring Provider General Practice; Visit Provider Student in an Organized Health Care Education/Training Program | DX: M17.11 Unilateral primary osteoarthritis, right knee (principal) | CPT/HCPCS: 20605; 99213; J1030 ==

== ENCOUNTER 2018-01-08 16:55 | Emergency (ER) | payer MEDICARE, MEDICAID, SELFPAY ==
[2018-01-08 17:03] VITALS: BP 166/112; PULSE 88; RESP 16; TEMP 36.9; O2SAT 96
[2018-01-08] MEDS: Ibuprofen 800 MG TAB PO (17:13)
[2018-01-08] MEDS: Acetaminophen 500 MG TAB 1000 MG PO (17:15)
--- NOTE | 2018-01-08 17:26 | W.ED.GENAD ---
Discharge Plan Disposition Patient Disposition: HOME Condition: Good Discharge Details Chief Complaint: DentalOral Clinical Impression: Pain, dental Primary Care Provider: Cl Beltran ED Provider: Andrew Grant Home Meds and New Rx's Prescriptions: New acetaminophen [Mapap Extra Strength] 500 MG tablet 1,000 mg PO Q6H 5 Days Qty: 60 RF: 0 ibuprofen [Motrin IB] 200 MG tablet 600 mg PO Q6H 5 Days Qty: 60 RF: 0 clindamycin HCl 150 mg capsule 450 mg PO TID 10 Days Qty: 90 RF: 0 No Action multivitamin tablet,chewable 1 tab PO DAILY RF: 0 sertraline [Zoloft] 25 MG tablet 25 mg PO DAILY RF: 0 carbamazepine [Tegretol] 200 MG tablet 400 mg PO HS RF: 0 carbamazepine [Tegretol] 200 MG tablet 600 mg PO DAILY RF: 0 levothyroxine 25 MCG tablet 1.25 mcg PO HS RF: 0 testosterone cypionate 100 MG/ML oil 1.2 ml IM Q14D RF: 0 amitriptyline 25 MG tablet 25 mg PO HS RF: 0 gemfibrozil 600 MG tablet 600 mg PO BID RF: 0 ranitidine HCl [Zantac] 150 mg tablet 150 mg PO BID Qty: 60 RF: 0 Discharge Instructions Instructions: Toothache (ED) Additional Instructions: Please follow-up with your dentist at your scheduled appointment on Thursday. Please take your first dose of Tylenol and Motrin at 11 PM tonight, take it together. Please take your first dose of clindamycin as soon as you have it filled. If you notice any worsening of your symptoms, or any new symptoms such as vomiting, diarrhea, fever, chills, shortness of breath, chest pain, numbness, weakness, or fainting , please return immediately to the emergency department for reevaluation. Please follow up with your primary care provider as soon as possible for reassessment and reevaluation. As always, it was a pleasure participating in your medical care today. Referrals: Cl Beltran MD [Primary Care Provider] - Medical Decision Making This is a pleasant 47-year-old male with notable dental caries who presents today with worsening carrying any small fractured tooth over the previously infected and diseased tooth on the left lower jaw. Physical exam shows no signs of abscess, but notable caries. No signs of airway compromise. Patient has not been taking any Tylenol or Motrin for her symptoms, we did give Tylenol and Motrin here, as well as performed a dental block with a 50-50 lidocaine and bupivacaine mixture to the left jaw with an inferior alveolar block. After he had complete resolution of his symptoms on the left he stated that he was having some pain on the right as well from other teeth. We did give him a block on the right, and he tolerated this well. Patient will be started on clindamycin, Tylenol and Motrin. He has a follow-up appointment on Thursday with his dentist. We discussed red flags which to return the patient understands. I have extensively reviewed the treatment plan and discharge instructions with the patient. I have addressed all patient concerns at this time. The patient was made aware of what symptoms to monitor for that would warrant a return to the emergency department. Discussed the plan with the patient, they demonstrate verbal understanding and agreement with our assessment and plan at this time. Time out was taken to identify the correct patient, procedure, and site. Risks and benefits were discussed with the patient and consent was obtained. Direct pressure was held over the area prior to the procedure to reduce painful injection. 5 cc?s of Lidocaine 1% and Bupivacaine 0.25% was instilled into the left inferior alveolar region by the angle of the mandible with a 27 gauge needle.this process was then repeated on the right side. Complete analgesia was obtained. The patient tolerated the procedure. There were no complications. HPI General Date/Time Provider Initiated Documentation: 01/08/18 17:26. HPI Narrative: This is a 47-year-old male with a past medical history of a intracranial shunt, and multiple dental caries who presents today for evaluation of dental pain. The patient states that this morning he woke up and noticed that his left lower tooth was broken in the area of tooth 20. He has had notable pain since then. He had previous pain in that area secondary to caries, but not this severe. He denies any difficulty swallowing, drinking, or systemic fevers or chills. He denies any other systemic complaints. He did have a dental visit today however he missed it because of the snow. He has no additional complaints at this time. He has not been on antibiotics recently. He does have a penicillin allergy. No additional complaints. He denies any current IV or illicit drug use. He denies any pertinent family history. Related Data Home Medications Medication Instructions Recorded Confirmed carbamazepine [Tegretol] 400 mg PO HS 10/22/12 12/21/17 carbamazepine [Tegretol] 600 mg PO DAILY 10/22/12 12/21/17 levothyroxine 1.25 mcg PO HS 12/17/14 12/21/17 amitriptyline 25 mg PO HS 04/10/16 12/21/17 gemfibrozil 600 mg PO BID 04/10/16 12/21/17 testosterone cypionate 1.2 ml IM Q14D 04/10/16 12/21/17 sertraline [Zoloft] 25 mg PO DAILY tab-cap 05/29/17 12/21/17 multivitamin chewable tablet 1 tab PO DAILY 12/11/17 12/21/17 ranitidine HCl [Zantac] 150 mg PO BID #60 tab 12/17/17 12/21/17 acetaminophen [Mapap Extra 1,000 mg PO Q6H 5 Days #60 tab 01/08/18 Strength] clindamycin HCl 450 mg PO TID 10 Days #90 cap 01/08/18 ibuprofen [Motrin Ib] 600 mg PO Q6H 5 Days #60 tab 01/08/18 Previous Rx's Medication Instructions Recorded ranitidine HCl [Zantac] 150 mg PO BID #60 tab 12/17/17 acetaminophen [Mapap Extra 1,000 mg PO Q6H 5 Days #60 tab 01/08/18 Strength] clindamycin HCl 450 mg PO TID 10 Days #90 cap 01/08/18 ibuprofen [Motrin Ib] 600 mg PO Q6H 5 Days #60 tab 01/08/18 Allergies Allergy/AdvReac Type Severity Reaction Status Date / Time Penicillins Allergy Severe Anaphylaxsi Verified 01/08/18 17:37 s vancomycin Allergy Severe Skin Rash Verified 01/08/18 17:37 latex Allergy Intermediate hives with Verified 01/08/18 17:37 latex powdered gloves General Stated Complaint: DentalOral GLO: 5 Review of Systems Review of Systems All systems reviewed & are unremarkable except as noted in HPI and below PFSH Medical History Hypothyroid (Chronic) Seizure disorder (Chronic) Abdominal pain Chronic headaches Hydrocephalus Social History current occupational status: disabled Smoking/Tobacco Use Status: Never alcohol intake: never substance use type: does not use Surgical History S/P cholecystectomy (Acute) Intracranial shunt Exam Narrative Exam Narrative: 1.Const: Well-nourished, Well-developed, appearing stated age 2.Eyes: PERRL, no conjunctival injection, and symmetrical lids. 3.ENT: Atraumatic external nose and ears. Moist MM. Neck: Symmetric, trachea midline, No thyromegaly. Patient demonstrates a notable shunt drain in his right neck. Notable dental caries throughout, small fractured tooth with evidence of severe tooth disease over tooth 20. No active bleeding or discharge. No signs of oral pharyngeal erythema, airway compromise, or periapical or periodontal abscess 4.CVS: +S1/S2, No murmurs or gallops. Peripheral pulses 2+ and equal in all extremities. Brisk capillary refill in all extremities. 5.RESP: Unlabored respiratory effort. Clear to auscultation bilaterally. No wheezes rales or rhonchi 6.GI: Soft, Nontender/Nondistended, No hepatosplenomegaly. No guarding or rebound. 7.MSK: Normocephalic/Atraumatic, normal scars and small deformity on the superior aspect of his cranium secondary to previous surgeries extremities w/o deformity or ttp No cyanosis or clubbing, Normal movement of all extremities 8.Skin: Warm, Dry. No rashes or lesions. 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 Sensation grossly intact, no focal neurologic deficits. 10.Psych: (AAO) x3. Appropriate mood and affect Course Vital Signs Temperature 36.9 C 01/08/18 17:03 Pulse 88 01/08/18 17:03 Respiratory Rate 16 01/08/18 17:03 Blood Pressure 166/112 H 01/08/18 17:03 Pulse Oximetry 96 01/08/18 17:03 Temperature 36.9 C 01/08/18 17:03 Temperature Source Skin 01/08/18 17:03 Pulse 88 01/08/18 17:03 Respiratory Rate 16 01/08/18 17:03 Blood Pressure 166/112 H 01/08/18 17:03 Blood Pressure Position Sitting 01/08/18 17:03 Pulse Oximetry 96 01/08/18 17:03 Oxygen Delivery Method Room Air 01/08/18 17:03 Oxygen Flow Rate 0 01/08/18 17:03 Pain Level 8 01/08/18 17:03
[2018-01-08 17:46] VITALS: BP 154/101; PULSE 85; RESP 15; TEMP 37.4; O2SAT 95
== END 2018-01-08 17:54 | disposition home or self-care (01) ==
PROVIDERS: Emergency Provider Student in an Organized Health Care Education/Training Program; PCP General Practice
DX: K02.9 Dental caries, unspecified (principal); R68.84 Jaw pain; Z98.2 Presence of cerebrospinal fluid drainage device; G91.9 Hydrocephalus, unspecified; I10 Essential (primary) hypertension
CPT/HCPCS: 41800; 99283; 99281

== ENCOUNTER 2018-01-28 16:30 | Outpatient (REF) | payer MEDICARE, MEDICAID, SELFPAY ==
[2018-01-28 22:48] LABS: ALT 21 U/L (12-78); AST 13 U/L (15-37); Albumin 4.2 g/dL (3.4-5.0); Alkaline Phosphatase 86 U/L (46-116); Anion Gap 8.8 mmol/L (3-11); BUN 20 mg/dL (7-18); Bilirubin, Total 0.5 mg/dL (0.2-1.0); CO2 29.2 mmol/L (21.0-32.0); CREATININE 1.08 mg/dL (0.70-1.30); Calcium 9.6 mg/dL (8.5-10.1); Chloride 103 mmol/L (98-107); Cholesterol 181 mg/dL (50-200); Glucose 97 mg/dL (70-100); HDL Cholesterol 41 mg/dL (40-60); LDL CHOLESTEROL 119 mg/dL (<100); Sodium 141 mmol/L (136-145); TROPONIN-I 3.1 ug/mL (4.0-12.0); TSH (W/Ref FT4) 1.73 uIU/mL (0.358-3.74); Total Protein 7.8 g/dL (6.4-8.2); Triglyceride 162 mg/dL (30-150)
== END 2018-01-28 16:50 ==
LOC: NCHCN 16:30
PROVIDERS: PCP General Practice; Visit Provider Nurse Practitioner Family
DX: I10 Essential (primary) hypertension (principal); E78.5 Hyperlipidemia, unspecified; E03.9 Hypothyroidism, unspecified; G40.909 Epilepsy, unspecified, not intractable, without status epilepticus; Z51.81 Encounter for therapeutic drug level monitoring
CPT/HCPCS: 80053; 80061; 83721; 80156; 84443

== ENCOUNTER → 2018-02-01 10:40 | Outpatient (BNVA) | payer MEDICARE, MEDICAID, SELFPAY | PROVIDERS: PCP General Practice; Referring Provider General Practice; Visit Provider Student in an Organized Health Care Education/Training Program | DX: M77.11 Lateral epicondylitis, right elbow (principal) | CPT/HCPCS: 99212; 99213 ==

== ENCOUNTER 2018-02-08 17:35 | Outpatient (REF) | payer MEDICARE, MEDICAID, SELFPAY ==
[2018-02-08 22:14] LABS: TROPONIN-I 5.9 ug/mL (4.0-12.0)
== END 2018-02-08 17:55 ==
LOC: NCHCN 17:35
PROVIDERS: PCP General Practice; Visit Provider Nurse Practitioner Family
DX: G40.909 Epilepsy, unspecified, not intractable, without status epilepticus (principal); Z51.81 Encounter for therapeutic drug level monitoring; Z79.899 Other long term (current) drug therapy
CPT/HCPCS: 80156

== ENCOUNTER 2018-08-05 14:24 | Emergency (ER) | payer MEDICARE, MEDICAID, SELFPAY ==
[2018-08-05 14:31] VITALS: BP 153/103; PULSE 106; RESP 12; TEMP 36.6; O2SAT 99
--- NOTE | 2018-08-05 14:39 | W.ED.GENAD ---
Discharge Plan Disposition Patient Disposition: HOME Condition: Good Discharge Details Chief Complaint: Orthopedic Clinical Impression: Right rotator cuff tendinitis, Biceps tendinitis of right shoulder Primary Care Provider: Cl Beltran ED Provider: Guerita Zarate Home Meds and New Rx's Prescriptions: New ibuprofen 600 mg tablet 600 mg PO QID PRN (Reason: pain) Qty: 20 RF: 0 lidocaine [Lidoderm] 5 % adhesive patch,medicated 1 patch TP DAILY PRN (Reason: pain) Qty: 15 RF: 0 Continued multivitamin tablet,chewable 1 tab PO DAILY RF: 0 sertraline [Zoloft] 25 MG tablet 25 mg PO DAILY RF: 0 carbamazepine [Tegretol] 200 MG tablet 400 mg PO HS RF: 0 carbamazepine [Tegretol] 200 MG tablet 600 mg PO DAILY RF: 0 levothyroxine 25 MCG tablet 1.25 mcg PO HS RF: 0 testosterone cypionate 100 MG/ML oil 1.2 ml IM Q14D RF: 0 amitriptyline 25 MG tablet 25 mg PO HS RF: 0 gemfibrozil 600 MG tablet 600 mg PO BID RF: 0 ranitidine HCl [Zantac] 150 mg tablet 150 mg PO PRN PRNRF: 0 Discharge Instructions Instructions: Tendinitis (ED) Additional Instructions: Encourage hydration. Tylenol and ibuprofen as needed for discomfort. You may use lidocaine patches as prescribed to help with discomfort. Please perform exercises that were given to you 6 times daily to help prevent adhesive capsulitis. Referral for physical therapy is attached, please call to schedule appointment. Please contact orthopedics to schedule follow-up visit. If you develop new or worsening symptoms seek care urgently once again Referrals: lC Beltran MD [Primary Care Provider] - Ray Andino MD [ [facility] STAFF PHYSICIAN] - Discharge Data Discharge Date/Time-TO BE ENTERED AT DEPARTURE: 08/05/18 16:15 Medical Decision Making Patient is a 47-year-old [id number] male presenting today with chief complaint of right shoulder pain. He had surgery on his right shoulder [address] Andino. At that time, it sounds that he had an extensive debridement and an distal clavicle resection. He was noted to have mild rotator cuff tears. He reports that 4 days ago he awoke with recurrent discomfort in the shoulder. Indicates the anterior aspect of the shoulder is area of discomfort. No known trauma or repetitive movements. Patient is not currently working. On exam, pain is primarily tender over the biceps tendon. Patient also has discomfort with Corral and speeds exam. I am concerned he may have exacerbated his known rotator cuff injury. Advised he will need follow-up with orthopedics. The patient did not have any recurrent trauma, I do not feel that imaging is warranted at this time. I did give him exercise movements as I am concerned he is developing adhesive capsulitis is forward elevation even with passive exercises only to actually 110 degrees. Referral for physical therapy will be sent. All questions and concerns were addressed and he is in agreement with this plan. HPI General Mode of arrival: ambulatory. Date/Time Provider Initiated Documentation: 08/05/18 14:37. Limitations to Documentation: no limitations. Information obtained by: patient and RN notes reviewed. History of Present Illness 47 year old M presents to the emergency department with the chief complaint of right shoulder pain, described as moderate, with intensity rated at 7. Quality is described as aching, and is localized to the right and upper extremity. Patient reports no radiation. Patient started experiencing this day(s) (4) and it has been constant. Immobilization improves symptom(s), Movement worsens symptoms . Patient notes no other symptoms.. Patient did receive the following treatments prior to arrival, none Related Data Home Medications Medication Instructions Recorded Confirmed carbamazepine [Tegretol] 400 mg PO HS 10/22/12 02/01/18 carbamazepine [Tegretol] 600 mg PO DAILY 10/22/12 02/01/18 levothyroxine 1.25 mcg PO HS 12/17/14 02/01/18 amitriptyline 25 mg PO HS 04/10/16 02/01/18 gemfibrozil 600 mg PO BID 04/10/16 02/01/18 testosterone cypionate 1.2 ml IM Q14D 04/10/16 02/01/18 sertraline [Zoloft] 25 mg PO DAILY tab-cap 05/29/17 02/01/18 multivitamin chewable tablet 1 tab PO DAILY 12/11/17 02/01/18 ranitidine HCl [Zantac] 150 mg PO PRN PRN 01/08/18 02/01/18 ibuprofen 600 mg PO QID PRN #20 tab 08/05/18 lidocaine [Lidoderm] 1 patch TP DAILY PRN #15 each 08/05/18 Previous Rx's Medication Instructions Recorded ibuprofen 600 mg PO QID PRN #20 tab 08/05/18 lidocaine [Lidoderm] 1 patch TP DAILY PRN #15 each 08/05/18 Allergies Allergy/AdvReac Type Severity Reaction Status Date / Time Penicillins Allergy Severe Anaphylaxsi Verified 08/05/18 14:35 s vancomycin Allergy Severe Skin Rash Verified 08/05/18 14:35 latex Allergy Intermediate hives with Verified 08/05/18 14:35 latex powdered gloves General Stated Complaint: Orthopedic GLO: 4 Review of Systems Constitutional Reports as per HPI, Denies chills, Denies fever(s), Denies headache(s) and Denies weakness ENT Denies headache(s) Cardiovascular Reports as per HPI Respiratory Reports as per HPI and Denies cough Musculoskeletal Reports as per HPI and Denies tingling Integumentary/Breasts Reports as per HPI, Denies rash and Denies wounds Neurologic Reports as per HPI, Denies headache(s), Denies tingling, Denies paresthesias and Denies weakness [facility] Medical History Hypothyroid (Chronic) Seizure disorder (Chronic) Abdominal pain Chronic headaches Hydrocephalus Surgical History S/P cholecystectomy (Acute) Intracranial shunt Social History Smoking/Tobacco Use Status: Never Alcohol Intake: never Drug use: Never Substance use type: does not use Do you feel safe at home: Yes Do you feel safe in your relationship?: Yes Exam Const General: cooperative, healthy appearing, comfortable, no acute distress, well developed and well groomed Nutritional Appearance: average body habitus and well nourished Orientation: alert and awake Resp Effort & Inspection: normal respiratory effort, able to speak in complete sentences and no respiratory distress Cardio Rate: regular rate Rhythm: regular rhythm Skin General skin exam: no rashes or lesions noted Lesions: no lesions Rashes: no rashes Trauma: no lacerations or abrasions Neuro General: alert and awake Cognition: normal cognition Speech: speech normal Gait: normal gait Motor: muscle tone normal throughout Sensory Exam: no sensory deficits noted Extrem Right upper extremity: normal capillary refill, no joint enlargement, shoulder/upper arm Details: normal to inspection, tenderness Location: over the biceps tendon, abnormal ROM Details: pain with active ROM Details: in flexion (90* with passive and active ROM) and with range as follows (full ER and IR) and other (+neer, corral, speeds); no swelling, axillary nerve sensory function abnormal, no abrasions, no lacerations, no ecchymosis, no crepitus, no deformity and no unusual warmth, elbow/forearm Details: normal to inspection and normal ROM, wrist Details: normal to inspection and normal ROM and hand Details: normal to inspection, normal capillary refill, neuromotor exam normal and neurosensory exam normal; ROM limited Psych Appearance: grossly normal and well kempt Mental Status: mental status grossly normal Speech and Movement: speech and movement normal Course Vital Signs Temperature 36.6 C 08/05/18 14:31 Pulse 106 H 08/05/18 14:31 Respiratory Rate 12 08/05/18 14:31 Blood Pressure 153/103 H 08/05/18 14:31 Pulse Oximetry 99 08/05/18 14:31 Temperature 36.6 C 08/05/18 14:31 Temperature Source Temporal Artery Scan 08/05/18 14:31 Pulse 106 H 08/05/18 14:31 Respiratory Rate 12 08/05/18 14:31 Respiratory Effort Non-Labored 08/05/18 14:33 Blood Pressure 153/103 H 08/05/18 14:31 Blood Pressure Position Sitting 08/05/18 14:31 Pulse Oximetry 99 08/05/18 14:31 Oxygen Delivery Method Room Air 08/05/18 14:31 Oxygen Flow Rate 0 08/05/18 14:31 Pain Level 7 08/05/18 14:31
--- NOTE | 2018-08-05 15:25 | ED.GENADUL_ITS ---
Discharge Plan Disposition Patient Disposition: HOME Condition: Good Discharge Details Chief Complaint: Orthopedic Clinical Impression: Right rotator cuff tendinitis, Biceps tendinitis of right shoulder Primary Care Provider: Cl Beltran ED Provider: Guerita Zarate Home Meds and New Rx's Prescriptions: New ibuprofen 600 mg tablet 600 mg PO QID PRN (Reason: pain) Qty: 20 RF: 0 lidocaine [Lidoderm] 5 % adhesive patch,medicated 1 patch TP DAILY PRN (Reason: pain) Qty: 15 RF: 0 Continued multivitamin tablet,chewable 1 tab PO DAILY RF: 0 sertraline [Zoloft] 25 MG tablet 25 mg PO DAILY RF: 0 carbamazepine [Tegretol] 200 MG tablet 400 mg PO HS RF: 0 carbamazepine [Tegretol] 200 MG tablet 600 mg PO DAILY RF: 0 levothyroxine 25 MCG tablet 1.25 mcg PO HS RF: 0 testosterone cypionate 100 MG/ML oil 1.2 ml IM Q14D RF: 0 amitriptyline 25 MG tablet 25 mg PO HS RF: 0 gemfibrozil 600 MG tablet 600 mg PO BID RF: 0 ranitidine HCl [Zantac] 150 mg tablet 150 mg PO PRN PRNRF: 0 Discharge Instructions Instructions: Tendinitis (ED) Additional Instructions: Encourage hydration. Tylenol and ibuprofen as needed for discomfort. You may use lidocaine patches as prescribed to help with discomfort. Please perform exercises that were given to you 6 times daily to help prevent adhesive capsulitis. Referral for physical therapy is attached, please call to schedule appointment. Please contact orthopedics to schedule follow-up visit. If you develop new or worsening symptoms seek care urgently once again Referrals: Cl Beltran MD [Primary Care Provider] - Ray Andino MD [ [facility]AFF PHYSICIAN] - Discharge Data Discharge Date/Time-TO BE ENTERED AT DEPARTURE: 08/05/18 16:15 Medical Decision Making Patient is a 47-year-old [id number] male presenting today with chief complaint of right shoulder pain. He had surgery on his right shoulder [address] Andino. At that time, it sounds that he had an extensive debridement and an distal clavicle resection. He was noted to have mild rotator cuff tears. He reports that 4 days ago he awoke with recurrent discomfort in the shoulder. Indicates the anterior aspect of the shoulder is area of discomfort. No known trauma or repetitive movements. Patient is not currently working. On exam, pain is primarily tender over the biceps tendon. Patient also has discomfort with Corral and speeds exam. I am concerned he may have exacerbated his known rotator cuff injury. Advised he will need follow-up with orthopedics. The patient did not have any recurrent trauma, I do not feel that imaging is warranted at this time. I did give him exercise movements as I am concerned he is developing adhesive capsulitis is forward elevation even with passive exercises only to actually 110 degrees. Referral for physical therapy will be sent. All questions and concerns were addressed and he is in agreement with this plan. HPI General Mode of arrival: ambulatory . Date/Time Provider Initiated Documentation: 08/05/18 14:37 . Limitations to Documentation: no limitations . Information obtained by: patient and RN notes reviewed . History of Present Illness 47 year old M presents to the emergency department with the chief complaint of right shoulder pain, described as moderate, with intensity rated at 7. Quality is described as aching, and is localized to the right and upper extremity. Patient reports no radiation. Patient started experiencing this day(s) (4) and it has been constant. Immobilization improves symptom(s), Movement worsens symptoms . Patient notes no other symptoms.. Patient did receive the following treatments prior to arrival, no ne Related Data Home Medications Medication Instructions Recorded Confirmed carbamazepine [Tegretol] 400 mg PO HS 10/22/12 02/01/18 carbamazepine [Tegretol] 600 mg PO DAILY 10/22/12 02/01/18 levothyroxine 1.25 mcg PO HS 12/17/14 02/01/18 amitriptyline 25 mg PO HS 04/10/16 02/01/18 gemfibrozil 600 mg PO BID 04/10/16 02/01/18 testosterone cypionate 1.2 ml IM Q14D 04/10/16 02/01/18 sertraline [Zoloft] 25 mg PO DAILY tab-cap 05/29/17 02/01/18 multivitamin chewable tablet 1 tab PO DAILY 12/11/17 02/01/18 ranitidine HCl [Zantac] 150 mg PO PRN PRN 01/08/18 02/01/18 ibuprofen 600 mg PO QID PRN #20 tab 08/05/18 lidocaine [Lidoderm] 1 patch TP DAILY PRN #15 each 08/05/18 Previous Rx's Medication Instructions Recorded ibuprofen 600 mg PO QID PRN #20 tab 08/05/18 lidocaine [Lidoderm] 1 patch TP DAILY PRN #15 each 08/05/18 Allergies Allergy/AdvReac Type Severity Reaction Status Date / Time Penicillins Allergy Severe Anaphylaxsi Verified 08/05/18 14:35 s vancomycin Allergy Severe Skin Rash Verified 08/05/18 14:35 latex Allergy Intermediate hives with Verified 08/05/18 14:35 latex powdered gloves General Stated Complaint: Orthopedic GLO: 4 Review of Systems Constitutional Reports as per HPI, Denies chills, Denies fever(s), Denies headache(s) and Denies weakness ENT Denies headache(s) Cardiovascular Reports as per HPI Respiratory Reports as per HPI and Denies cough Musculoskeletal Reports as per HPI and Denies tingling Integumentary/Breasts Reports as per HPI, Denies rash and Denies wounds Neurologic Reports as per HPI, Denies headache(s), Denies tingling, Denies paresthesias and Denies weakness [facility] Medical History Hypothyroid (Chronic) Seizure disorder (Chronic) Abdominal pain Chronic headaches Hydrocephalus Surgical History S/P cholecystectomy (Acute) Intracranial shunt Social History Smoking/Tobacco Use Status: Never Alcohol Intake: never Drug use: Never Substance use type: does not use Do you feel safe at home: Yes Do you feel safe in your relationship?: Yes Exam Const General: cooperative, healthy appearing, comfortable, no acute distress, well developed and well groomed Nutritional Appearance: average body habitus and well nourished Orientation: alert and awake Resp Effort & Inspection: normal respiratory effort, able to speak in complete sentences and no respiratory distress Cardio Rate: regular rate Rhythm: regular rhythm Skin General skin exam: no rashes or lesions noted Lesions: no lesions Rashes: no rashes Trauma: no lacerations or abrasions Neuro General: alert and awake Cognition: normal cognition Speech: speech normal Gait: normal gait Motor: muscle tone normal throughout Sensory Exam: no sensory deficits noted Extrem Right upper extremity: normal capillary refill, no joint enlargement, shoulder/upper arm Details: normal to inspection, tenderness Location: over the biceps tendon, abnormal ROM Details: pain with active ROM Details: in flexion (90* with passive and active ROM) and with range as follows (full ER and IR) and other (+neer, corral, speeds); no swelling, axillary nerve sensory function abnormal, no abrasions, no lacerations, no ecchymosis, no crepitus, no deformity and no unusual warmth, elbow/forearm Details: normal to inspection and normal ROM, wrist Details: normal to inspection and normal ROM and hand Details: normal to inspection, normal capillary refill, neuromotor exam normal and neurosensory exam normal; ROM limited Psych Appearance: grossly normal and well kempt Mental Status: mental status grossly normal Speech and Movement: speech and movement normal Course Vital Signs Temperature 36.6 C 08/05/18 14:31 Pulse 106 H 08/05/18 14:31 Respiratory Rate 12 08/05/18 14:31 Blood Pressure 153/103 H 08/05/18 14:31 Pulse Oximetry 99 08/05/18 14:31 Temperature 36.6 C 08/05/18 14:31 Temperature Source Temporal Artery Scan 08/05/18 14:31 Pulse 106 H 08/05/18 14:31 Respiratory Rate 12 08/05/18 14:31 Respiratory Effort Non-Labored 08/05/18 14:33 Blood Pressure 153/103 H 08/05/18 14:31 Blood Pressure Position Sitting 08/05/18 14:31 Pulse Oximetry 99 08/05/18 14:31 Oxygen Delivery Method Room Air 08/05/18 14:31 Oxygen Flow Rate 0 08/05/18 14:31 Pain Level 7 08/05/18 14:31
[2018-08-05 15:44] VITALS: BP 150/95; PULSE 98; RESP 16; O2SAT 98
== END 2018-08-05 16:15 | disposition home or self-care (01) ==
PROVIDERS: Emergency Provider Physician Assistant; PCP General Practice
DX: M75.101 Unspecified rotator cuff tear or rupture of right shoulder, not specified as traumatic (principal); M75.21 Bicipital tendinitis, right shoulder; Z98.890 Other specified postprocedural states
CPT/HCPCS: 99283; L3650

== ENCOUNTER → 2018-08-13 10:41 | Outpatient (BNVA) | payer MEDICARE, MEDICAID, SELFPAY | PROVIDERS: PCP Nurse Practitioner Family; Referring Provider General Practice; Visit Provider Student in an Organized Health Care Education/Training Program | DX: M75.81 Other shoulder lesions, right shoulder (principal); M25.511 Pain in right shoulder | CPT/HCPCS: 20610; 99213; J1040 ==

== ENCOUNTER → 2018-09-24 09:53 | Outpatient (BNVA) | payer MEDICARE, MEDICAID, SELFPAY | PROVIDERS: PCP Nurse Practitioner Family; Referring Provider Nurse Practitioner Family; Visit Provider Student in an Organized Health Care Education/Training Program | DX: M77.11 Lateral epicondylitis, right elbow (principal) | CPT/HCPCS: 99213 ==

== ENCOUNTER 2018-10-08 14:52 | Emergency (ER) | payer MEDICARE, MEDICAID, SELFPAY ==
[2018-10-08] VITALS (44 sets, daily range): BP systolic 120–146; BP diastolic 76–97; PULSE 65–95; RESP 10–24; TEMP 36.9; O2SAT 94–99
--- NOTE | 2018-10-08 15:01 | W.ED.GENAD ---
Discharge Plan Disposition Patient Disposition: HOME Condition: Stable Discharge Details Chief Complaint: Dizzy/Sync Clinical Impression: Chest pain Primary Care Provider: Rosario Varela ED Provider: Leighton Diaz Home Meds and New Rx's Prescriptions: Continued multivitamin tablet,chewable 1 tab PO DAILY RF: 0 sertraline [Zoloft] 25 MG tablet 25 mg PO DAILY RF: 0 carbamazepine [Tegretol] 200 MG tablet 400 mg PO HS RF: 0 carbamazepine [Tegretol] 200 MG tablet 600 mg PO DAILY RF: 0 levothyroxine 25 MCG tablet 1.25 mcg PO HS RF: 0 testosterone cypionate 100 MG/ML oil 1.2 ml IM Q14D RF: 0 amitriptyline 25 MG tablet 25 mg PO HS RF: 0 gemfibrozil 600 MG tablet 600 mg PO BID RF: 0 ranitidine HCl [Zantac] 150 mg tablet 150 mg PO PRN PRNRF: 0 ibuprofen 600 mg tablet 600 mg PO QID PRN (Reason: pain) Qty: 20 RF: 0 lidocaine [Lidoderm] 5 % adhesive patch,medicated 1 patch TP DAILY PRN (Reason: pain) Qty: 15 RF: 0 Discharge Instructions Instructions: Chest Pain (ED) Additional Instructions: follow up with your primary care provider within 1 week if you have worsening symptoms, feel more ill or more pain return to the emergency department Medical Decision Making 47 yo male with hx of seizure disorder, denies ever smoking, no alcohol or drug use, comes in with cc of chest pain. 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 Denies radiation of pain, no n/v. He does state he thinks he had brief loc without falling as well. HE has clear lugns in no distress on exam. Has tenderness over anterior chest, clear luns ,no murmurs, no leg swelling and no calf pain. Heart score is 2, will send troponin. NO tearing back pain and normal vascular exma so doubt dissection. Wells low and perc negative so doubt PE at this time. pt remains hd stable, labs show evidence of dehydration with anion gap of 15 and creatinine mildly increased from baseline. Suspect dehydration as cause of his syncope. Only has pain when I push on his chest. Renny lrepeat bmp and delta troponin pt's second troponin and ecg unremarkable and bmp improved. I suspect dehydration, orthostasis. will d/c home and advised f/u with pcp and return precautions given Differential Diagnosis acs, chest wall pain, ptx Imaging Data Radiologic Study: Attestation: I personally reviewed and interpreted this imaging study as follows: Imaging: X-Ray Radiologist's impression: no acute findings Lab Data Lab results reviewed: Yes I reviewed the patient's lab results. ECG Data Attestation: I personally reviewed and interpreted this ECG (s) as follows: Prior ECG tracings: available for review Interpretation: sinus rhythm, rate of 94, pr 116, no acute st t wave ischemic findings 2nd ekg shows sinus rhythm, rate of 70, pr [address] t wave ischemic findings HPI General Mode of arrival: ambulatory. Date/Time Provider Initiated Documentation: 10/08/18 14:52. Limitations to Documentation: no limitations. Information obtained by: patient. History of Present Illness 47 year old M presents to the emergency department with the chief complaint of chest pain, described as moderate, with intensity rated at 4. Quality is described as aching, and is localized to the chest. Patient reports no radiation. Patient started experiencing this hour(s) (3) and it has been constant. No relieving factors improve symptom(s), No exacerbating factors reported . Patient did receive the following treatments prior to arrival, none Related Data Home Medications Medication Instructions Recorded Confirmed carbamazepine [Tegretol] 400 mg PO HS 10/22/12 10/08/18 carbamazepine [Tegretol] 600 mg PO DAILY 10/22/12 10/08/18 levothyroxine 1.25 mcg PO HS 12/17/14 10/08/18 amitriptyline 25 mg PO HS 04/10/16 10/08/18 gemfibrozil 600 mg PO BID 04/10/16 10/08/18 testosterone cypionate 1.2 ml IM Q14D 04/10/16 10/08/18 sertraline [Zoloft] 25 mg PO DAILY tab-cap 05/29/17 10/08/18 multivitamin 1 tab PO DAILY 12/11/17 10/08/18 ranitidine HCl [Zantac] 150 mg PO PRN PRN 01/08/18 10/08/18 ibuprofen 600 mg PO QID PRN #20 tab 08/05/18 10/08/18 lidocaine [Lidoderm] 1 patch TP DAILY PRN #15 each 08/05/18 09/24/18 Previous Rx's Medication Instructions Recorded ibuprofen 600 mg PO QID PRN #20 tab 08/05/18 lidocaine [Lidoderm] 1 patch TP DAILY PRN #15 each 08/05/18 Allergies Allergy/AdvReac Type Severity Reaction Status Date / Time Penicillins Allergy Severe Anaphylaxsi Verified 09/24/18 10:01 s vancomycin Allergy Severe Skin Rash Verified 09/24/18 10:01 latex Allergy Intermediate hives with Verified 09/24/18 10:01 latex powdered gloves General Stated Complaint: Dizzy/Sync GLO: 3 Review of Systems Review of Systems All systems reviewed & are unremarkable except as noted in HPI and below Constitutional Denies chills, Denies fever(s) and Denies weakness Cardiovascular Denies dyspnea Respiratory Denies dyspnea Gastrointestinal Denies abdominal pain, Denies nausea and Denies vomiting Musculoskeletal Denies joint swelling Integumentary/Breasts Denies rash Neurologic Denies weakness [facility] Social History Smoking/Tobacco Use Status: Never Alcohol Intake: never Drug use: Never Substance use type: does not use Do you feel safe at home: Yes Do you feel safe in your relationship?: Yes Exam Const General: no acute distress Orientation: alert HENMT Head: normal to inspection Ears: external ears normal General nose exam: external nose normal Mouth: moist mucous membranes Eyes General: appearance normal, both eyes and all related structures Neck Neck: normal visual inspection Resp Effort & Inspection: normal respiratory effort and able to speak in complete sentences Cardio Rate: regular rate Skin General skin exam: no rashes or lesions noted Neuro General: alert and oriented x3 Extrem General: normal to inspection Psych Mental Status: mental status grossly normal Course Vital Signs Pulse 93 H 10/08/18 14:56 Respiratory Rate 14 10/08/18 14:56 Blood Pressure 146/86 H 10/08/18 14:56 Pulse Oximetry 98 10/08/18 14:56 Temperature Source Temporal Artery Scan 10/08/18 14:56 Pulse 93 H 10/08/18 14:56 Respiratory Rate 14 10/08/18 14:56 Blood Pressure 146/86 H 10/08/18 14:56 Blood Pressure Position Supine 10/08/18 14:56 Pulse Oximetry 98 10/08/18 14:56 Oxygen Delivery Method Room Air 10/08/18 14:56 Oxygen Flow Rate 0 10/08/18 14:56
--- NOTE | 2018-10-08 15:06 | DI.RAD_ITS ---
SYMPTOMS/DIAGNOSIS: CHEST PAIN PA AND LATERAL CHEST: The heart is not enlarged. The lungs are clear. No pleural effusions seen. Note is made of a ventriculoperitoneal shunt. CONCLUSION: No evidence of acute process.
[2018-10-08] MEDS: Normal Saline 1,000 ML 1000 ML IV ×2 (15:12→16:18)
[2018-10-08] MEDS: Aspirin 81 MG CHEW 324 MG CH (15:12)
[2018-10-08 15:26] LABS: Abs Immature Grans 0.01 k/cumm (0.0-0.09); Absolute Basophil Count 0.04 k/cumm (0.0-0.2); Absolute Eosinophil Count 0.12 k/cumm (0.0-0.7); Absolute Lymphocyte Count 1.95 k/cumm (1.2-3.4); Absolute Monocyte Count 0.46 k/cumm (0.11-0.7); Absolute Neutrophil Count 3.54 k/cumm (1.2-6.7); Basophils % 0.7; HCT 50.6 % (40.0-50.0); Immature Grans % 0.2; Lymphocytes % 31.9; Mean Corp. HGB Concentration 33.6 g/dL (32.0-36.0); Mean Corpuscular Hemoglobin 31.6 pg (27.0-33.0); Mean Corpuscular Volume 94.1 fL (80-95); Mean Platelet Volume 9.6 fL (8.0-11.0); Monocytes % 7.5; Neutrophils % 57.7; Platelet Count 326 x1000/uL (130-400); RBC 5.38 m/cumm (4.50-6.00); RBC Distribution Width 12.6 % (11.8-14.1); White Blood Cell Count 6.12 k/cumm (4.4-10.8)
[2018-10-08 15:33] LABS: PTT Activated 24.4 sec (21.0-31.4); Prothrombin Time 9.9 sec (9.3-11.0)
[2018-10-08 15:45] LABS: ALT 12 U/L (12-78); AST 5 U/L (15-37); Albumin 4.5 g/dL (3.4-5.0); Alkaline Phosphatase 99 U/L (46-116); BUN 12 mg/dL (7-18); Bilirubin, Total 0.3 mg/dL (0.2-1.0); CREATININE 1.32 mg/dL (0.70-1.30); Calcium 9.1 mg/dL (8.5-10.1); Chloride 108 mmol/L (98-107); Estimated GFR 58.65 (mL/min/1.73m2); Glucose 96 mg/dL (70-100); Magnesium 2.4 mg/dL (1.8-2.4); Potassium 4.4 mmol/L (3.5-5.1); Sodium 142 mmol/L (136-145); Total Protein 8.3 g/dL (6.4-8.2)
[2018-10-08 15:49] LABS: Troponin I < 0.05 ng/mL (0.00-0.06)
[2018-10-08] MEDS: Acetaminophen 500 MG TAB (17:13)
--- NOTE | 2018-10-08 18:13 | NUR.NOTE ---
rpt labs drawn Nursing Note:
[2018-10-08 18:20] LABS: Anion Gap 11.3 mmol/L (3-11); BUN 11 mg/dL (7-18); CO2 20.7 mmol/L (21.0-32.0); CREATININE 1.19 mg/dL (0.70-1.30); Calcium 8.2 mg/dL (8.5-10.1); Chloride 111 mmol/L (98-107); Glucose 88 mg/dL (70-100); Potassium 4.3 mmol/L (3.5-5.1); Sodium 143 mmol/L (136-145)
[2018-10-08 18:24] LABS: TROPONIN-I 12.1 ug/mL (4.0-12.0)
[2018-10-08 18:42] LABS: Troponin I < 0.05 ng/mL (0.00-0.06)
--- NOTE | 2018-10-08 18:59 | NUR.NOTE ---
iv removed dc reviewed pt able to verblize understanding ambulatory steady on dc Nursing Note:
--- NOTE | 2018-10-08 20:22 | NUR.NOTE ---
faxed referal 10/08/2018Nursing Note:
== END 2018-10-08 18:56 | disposition home or self-care (01) ==
PROVIDERS: Emergency Provider Emergency Medicine; PCP Nurse Practitioner Family
DX: R07.9 Chest pain, unspecified (principal); E86.0 Dehydration; R55 Syncope and collapse
CPT/HCPCS: 36415; 80048; 80053; 93005; 96360; 96361; 99285; 71046; 80156; 83735; 84484; 85025; 85610; 85730; 93010; J3490

== ENCOUNTER 2018-10-13 15:19 | Emergency (ER) | payer MEDICARE, MEDICAID, SELFPAY ==
[2018-10-13] VITALS (32 sets, daily range): BP systolic 91–141; BP diastolic 72–97; PULSE 73–91; RESP 14–18; TEMP 37–37.1; O2SAT 94–97
[2018-10-13] MEDS: Normal Saline Flush 10 ML SYR IVP ×2 (15:48→17:51)
[2018-10-13 15:53] LABS: Abs Immature Grans 0.01 k/cumm (0.0-0.09); Absolute Basophil Count 0.03 k/cumm (0.0-0.2); Absolute Eosinophil Count 0.18 k/cumm (0.0-0.7); Absolute Lymphocyte Count 1.78 k/cumm (1.2-3.4); Absolute Monocyte Count 0.54 k/cumm (0.11-0.7); Absolute Neutrophil Count 5.27 k/cumm (1.2-6.7); Basophils % 0.4; Eosinophils % 2.3; HCT 50.5 % (40.0-50.0); HGB 17.2 g/dL (13.5-17.5); Immature Grans % 0.1; Lymphocytes % 22.8; Mean Corp. HGB Concentration 34.1 g/dL (32.0-36.0); Mean Corpuscular Hemoglobin 31.7 pg (27.0-33.0); Mean Platelet Volume 9.3 fL (8.0-11.0); Monocytes % 6.9; Neutrophils % 67.5; Platelet Count 366 x1000/uL (130-400); RBC 5.43 m/cumm (4.50-6.00); RBC Distribution Width 12.5 % (11.8-14.1); White Blood Cell Count 7.81 k/cumm (4.4-10.8)
[2018-10-13 16:12] LABS: ALT 15 U/L (12-78); AST 5 U/L (15-37); Albumin 4.1 g/dL (3.4-5.0); Alkaline Phosphatase 87 U/L (46-116); Anion Gap 12.4 mmol/L (3-11); BUN 16 mg/dL (7-18); Bilirubin, Total 0.3 mg/dL (0.2-1.0); CO2 21.6 mmol/L (21.0-32.0); CREATININE 1.29 mg/dL (0.70-1.30); Calcium 8.8 mg/dL (8.5-10.1); Chloride 104 mmol/L (98-107); Glucose 125 mg/dL (70-100); Magnesium 2.2 mg/dL (1.8-2.4); Potassium 3.9 mmol/L (3.5-5.1); Sodium 138 mmol/L (136-145); Total Protein 8.3 g/dL (6.4-8.2)
[2018-10-13 16:13] LABS: Troponin I < 0.05 ng/mL (0.00-0.06)
[2018-10-13 16:24] LABS: D-Dimer 121 ng/mlFEU (<500)
--- NOTE | 2018-10-13 16:24 | DI.RAD_ITS ---
SYMPTOM/DIAGNOSIS: CHEST PAIN, R/O ACUTE DISEASE CHEST X-RAY, PA AND LATERAL: Comparison 07/13/17 and 10/08/18 Heart size and pulmonary vasculature are within normal limits. The lungs are clear and well expanded. No effusions or pneumothoraces are identified. The bones are intact. The shunt tubing overlying the right neck and anterior chest wall appears stable. IMPRESSION: No acute pulmonary process.
--- NOTE | 2018-10-13 17:06 | DI.VRAD_ITS ---
EXAM: XR Chest, 2 Views EXAM DATE/TIME: 10/13/2018 4:25 PM CLINICAL HISTORY: 47 years old, male; Patient HX: Continued chest pain since 10/08 TECHNIQUE: Imaging protocol: XR of the chest, 2 views. COMPARISON: CR XR CHEST 2V PA LATERAL 10/08/2018 3:24 PM FINDINGS: Tubes, catheters and devices: Again appreciated is a shunt catheter tube coursing throughout the right hemithorax up to the level of the right atrium. Distal to this, the shunt catheter is difficult to visualize. There is also a catheter tubing projecting over the aortopulmonary window with tip projecting over the left ventricle. This is also nonspecific. Findings are nevertheless stable. Lungs: Unremarkable. No consolidation. Pleural space: Unremarkable. No pleural effusion. No pneumothorax. Heart/Mediastinum: Unremarkable. No cardiomegaly. Bones/joints: No acute abnormality or aggressive osseous lesion. IMPRESSION: Stable examination, detailed above, without acute thoracic pathology. Note is made that the distal segments of the shunt catheter tubing are not confidently evaluated in this examination. Difficult to exclude shunt discontinuity. Consider shunt series if clinically warranted. Dictated and Authenticated by: Conrad Pitt MD. Ordering:ANNABEL Lynne MD
--- NOTE | 2018-10-13 17:38 | W.ED.GENAD ---
Discharge Plan Disposition Patient Disposition: HOME Condition: Improving Discharge Details Chief Complaint: Chest Pain Clinical Impression: Chest wall muscle strain Primary Care Provider: Rosario Varela ED Provider: Guera Melgoza Home Meds and New Rx's Prescriptions: New ibuprofen 600 mg tablet 600 mg PO Q6H PRN (Reason: pain) Qty: 20 RF: 0 methocarbamol [Robaxin-750] 750 mg tablet 750 mg PO QID PRN (Reason: muscle spasm) Qty: 10 RF: 0 lidocaine [Lidoderm] 5 % adhesive patch,medicated 1 patch TP DAILY Qty: 15 RF: 0 Continued multivitamin tablet,chewable 1 tab PO DAILY RF: 0 sertraline [Zoloft] 25 MG tablet 25 mg PO DAILY RF: 0 carbamazepine [Tegretol] 200 MG tablet 400 mg PO HS RF: 0 carbamazepine [Tegretol] 200 MG tablet 600 mg PO DAILY RF: 0 levothyroxine 25 MCG tablet 1.25 mcg PO HS RF: 0 testosterone cypionate 100 MG/ML oil 1.2 ml IM Q14D RF: 0 amitriptyline 25 MG tablet 25 mg PO HS RF: 0 gemfibrozil 600 MG tablet 600 mg PO BID RF: 0 ranitidine HCl [Zantac] 150 mg tablet 150 mg PO PRN PRNRF: 0 ibuprofen 600 mg tablet 600 mg PO QID PRN (Reason: pain) Qty: 20 RF: 0 lidocaine [Lidoderm] 5 % adhesive patch,medicated 1 patch TP DAILY PRN (Reason: pain) Qty: 15 RF: 0 Discharge Instructions Instructions: Muscle Strain (ED), Chest Wall Pain (ED) Additional Instructions: Alternate ice and heat to the affected area several times daily for 20 minutes at a time. Apply the Lidoderm patch as directed. Alternate Tylenol and Motrin as needed and directed for pain. Follow-up with your primary care doctor next week for reevaluation. Return to the emergency department if you develop any worsening or concerning symptoms. Discharge Data Discharge Physician: Gurea Melgoza Medical Decision Making 47-year-old male with a history of substernal and right-sided chest pain that is worse with movement over the past week. Patient was seen here in the past week for similar pain with possible brief LOC and he had negative cardiac work-up at that time was discharged home with diagnosis of possible dehydration. Due to patient's age and complaint, cardiac work-up ordered on arrival and is unremarkable. EKG notes a rate of 85, sinus with no acute ST-T wave ischemic changes. Negative troponin. Chest x-ray negative for acute findings. Patient has a history of [employer] shunt due to hydrocephalus since . They were unable to note the distal end of shunt on cxr but this does not appear to be clinically relevant. Patient states he has no headache, blurry vision, nausea or vomiting or neck pain which are the symptoms he usually has with any concern with his shunt. Patient has reproducible chest pain to his substernal and right chest. 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 He has no DVT/PE risk factors. Heart score of 0. This appears consistent with musculoskeletal chest pain. Patient was given a dose of Toradol and a Lidoderm patch here and admitted to improvement in pain. We will send home with Lidoderm patch, Robaxin as well as ibuprofen. He is instructed alternate ice and heat, and to limit heavy lifting pushing or pulling greater than 20 pounds for the next week. He is advised to follow-up with his primary care doctor for evaluation and return here at any time if worse. Medical Records Medical records reviewed: Yes I reviewed the patient's medical records. Imaging Data Radiologic Study: Radiologist's impression: XR Chest, 2 Views EXAM DATE/TIME: 10/13/2018 4:25 PM CLINICAL HISTORY: 47 years old, male; Patient HX: Continued chest pain since 10/08 TECHNIQUE: Imaging protocol: XR of the chest, 2 views. COMPARISON: CR XR CHEST 2V PA LATERAL 10/08/2018 3:24 PM FINDINGS: Tubes, catheters and devices: Again appreciated is a shunt catheter tube coursing throughout the right hemithorax up to the level of the right atrium. Distal to this, the shunt catheter is difficult to visualize. There is also a catheter tubing projecting over the aortopulmonary window with tip projecting over the left ventricle. This is also nonspecific. Findings are nevertheless stable. Lungs: Unremarkable. No consolidation. Pleural space: Unremarkable. No pleural effusion. No pneumothorax. Heart/Mediastinum: Unremarkable. No cardiomegaly. Bones/joints: No acute abnormality or aggressive osseous lesion. IMPRESSION: Stable examination, detailed above, without acute thoracic pathology. Note is made that the distal segments of the shunt catheter tubing are not confidently evaluated in this examination. Difficult to exclude shunt discontinuity. Consider shunt series if clinically warranted. Lab Data Lab results reviewed: Yes I reviewed the patient's lab results. Laboratory Tests Range/Units 10/13/18 10/13/18 10/13/18 15:45 15:45 15:45 WBC (4.4-10.8) k/cumm 7.81 RBC (4.50-6.00) m/cumm 5.43 Hgb (13.5-17.5) g/dL 17.2 Hct (40.0-50.0) % 50.5 H MCV (80-95) fL 93.0 MCH (27.0-33.0) pg 31.7 MCHC (32.0-36.0) g/dL 34.1 RDW (11.8-14.1) % 12.5 Plt Count (130-400) x1000/uL 366 MPV (8.0-11.0) fL 9.3 Immature Gran % 0.1 Neutrophils % 67.5 Lymphocytes % 22.8 Monocytes % 6.9 Eosinophils % 2.3 Basophils % 0.4 Absolute Neutrophils (1.2-6.7) k/cumm 5.27 Absolute Lymphocytes (1.2-3.4) k/cumm 1.78 Absolute Monocytes (0.11-0.7) k/cumm 0.54 Absolute Eosinophils (0.0-0.7) k/cumm 0.18 Absolute Basophils (0.0-0.2) k/cumm 0.03 D-Dimer (<500) ng/mlFEU 121 Sodium (136-145) mmol/L 138 Potassium (3.5-5.1) mmol/L 3.9 Chloride (98-107) mmol/L 104 Carbon Dioxide (21.0-32.0) mmol/L 21.6 Anion Gap (3-11) mmol/L 12.4 H BUN (7-18) mg/dL 16 Creatinine (0.70-1.30) mg/dL 1.29 Estimated GFR/1.73 m2 (mL/min/1.73m2) >= 60.00 Glucose (70-100) mg/dL 125 H Calcium (8.5-10.1) mg/dL 8.8 Magnesium (1.8-2.4) mg/dL 2.2 Total Bilirubin (0.2-1.0) mg/dL 0.3 AST (15-37) U/L 5 L ALT (12-78) U/L 15 Alkaline Phosphatase (46-116) U/L 87 Troponin I (0.00-0.06) ng/mL < 0.05 Total Protein (6.4-8.2) g/dL 8.3 H Albumin (3.4-5.0) g/dL 4.1 ECG Data Attestation: I personally reviewed and interpreted this ECG (s) as follows: Interpretation: Rate of 85, sinus, no acute ST elevation or depression. ME 126. QTc 395. QRS 88. HPI General Mode of arrival: ambulatory. Date/Time Provider Initiated Documentation: 10/13/18 15:27. Limitations to Documentation: no limitations. Information obtained by: patient. HPI Narrative: Patient is a 47-year-old male with a history of seizures, hypothyroidism, chronic headaches, hydrocephalus with ventriculopleural shunt who presents with substernal and right-sided chest pain for the last week. He states the pain is intermittent, sharp, 8/10 at its worst and currently 5/10. Patient was seen here several days ago for the same complaint and was discharged home after negative work-up. Patient states he presents with the same pain. 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 He states the pain is worse with any movement of his arms or upper body. He has taken aspirin without relief. He denies fever, cough, nausea, vomiting, dizziness or shortness of breath. He denies any family history of sudden cardiac . He denies any recent travel, leg pain or swelling or history of stress test. Related Data Home Medications Medication Instructions Recorded Confirmed carbamazepine [Tegretol] 400 mg PO HS 10/22/12 10/08/18 carbamazepine [Tegretol] 600 mg PO DAILY 10/22/12 10/08/18 levothyroxine 1.25 mcg PO HS 12/17/14 10/08/18 amitriptyline 25 mg PO HS 04/10/16 10/08/18 gemfibrozil 600 mg PO BID 04/10/16 10/08/18 testosterone cypionate 1.2 ml IM Q14D 04/10/16 10/08/18 sertraline [Zoloft] 25 mg PO DAILY tab-cap 05/29/17 10/08/18 multivitamin 1 tab PO DAILY 12/11/17 10/08/18 ranitidine HCl [Zantac] 150 mg PO PRN PRN 01/08/18 10/08/18 ibuprofen 600 mg PO QID PRN #20 tab 08/05/18 10/08/18 lidocaine [Lidoderm] 1 patch TP DAILY PRN #15 each 08/05/18 09/24/18 ibuprofen 600 mg PO Q6H PRN #20 tab 10/13/18 lidocaine [Lidoderm] 1 patch TP DAILY #15 each 10/13/18 methocarbamol [Robaxin-750] 750 mg PO QID PRN #10 tab 10/13/18 Previous Rx's Medication Instructions Recorded ibuprofen 600 mg PO QID PRN #20 tab 08/05/18 lidocaine [Lidoderm] 1 patch TP DAILY PRN #15 each 08/05/18 ibuprofen 600 mg PO Q6H PRN #20 tab 10/13/18 lidocaine [Lidoderm] 1 patch TP DAILY #15 each 10/13/18 methocarbamol [Robaxin-750] 750 mg PO QID PRN #10 tab 10/13/18 Allergies Allergy/AdvReac Type Severity Reaction Status Date / Time Penicillins Allergy Severe Anaphylaxsi Verified 09/24/18 10:01 s vancomycin Allergy Severe Skin Rash Verified 09/24/18 10:01 latex Allergy Intermediate hives with Verified 09/24/18 10:01 latex powdered gloves General Stated Complaint: Chest Pain GLO: 2 Review of Systems Review of Systems All systems reviewed & are unremarkable except as noted in HPI and below Constitutional Reports as per HPI, Denies chills and Denies fever(s) Eyes Denies blurry vision ENT Denies dizziness, Denies sore throat and Denies throat swelling Cardiovascular Reports chest pain and Denies dyspnea Respiratory Denies cough and Denies dyspnea Gastrointestinal Denies abdominal pain, Denies diarrhea and Denies vomiting Genitourinary Denies hematuria and Denies dysuria Musculoskeletal Denies back pain and Denies numbness Integumentary/Breasts Denies lesions and Denies rash Neurologic Denies dizziness, Denies focal weakness and Denies numbness Allergic/Immunologic Denies throat swelling [facility] Medical History Abdominal pain Chronic headaches Hydrocephalus Hypothyroid (Chronic) Seizure disorder (Chronic) Surgical History Intracranial shunt S/P cholecystectomy (Acute) Social History Smoking/Tobacco Use Status: Never Alcohol Intake: never Drug use: Never Substance use type: does not use Do you feel safe at home: Yes Do you feel safe in your relationship?: Yes Exam Const General: cooperative, healthy appearing and no acute distress HENMT Head: normal to inspection Face and sinus: normal facial exam Eyes General: appearance normal, both eyes and all related structures EOM: EOM intact bilaterally Neck Neck: normal visual inspection and No submandibular swelling Lymphatic: no lymphadenopathy noted Chest Chest: normal inspection of the chest Chest/axillae images: 1. Tenderness to palpation of substernal and right anterior chest. There is no evidence of trauma, infection or step-off Resp Effort & Inspection: normal respiratory effort and able to speak in complete sentences Auscultation: clear to auscultation bilaterally Cardio Rate: regular rate Rhythm: regular rhythm GI Inspection: normal to inspection Palpation: soft, not firm, not rigid and nontender Auscultation: normal bowel sounds Skin General skin exam: no rashes or lesions noted Neuro General: alert, awake and oriented x3 Cognition: normal cognition Speech: speech normal Motor: muscle tone normal throughout Sensory Exam: no sensory deficits noted Extrem General: normal to inspection, full ROM, normal capillary refill, no calf tenderness bilaterally and no edema Psych Appearance: grossly normal Mental Status: mental status grossly normal Speech and Movement: speech and movement normal Affect: normal affect Course Vital Signs Temperature 98.8 F 10/13/18 15:26 Pulse 88 10/13/18 15:26 Respiratory Rate 16 10/13/18 15:26 Blood Pressure 141/92 H 10/13/18 15:26 Pulse Oximetry 96 10/13/18 15:26 Temperature 98.8 F 10/13/18 15:26 Temperature Source Temporal Artery Scan 10/13/18 15:26 Pulse 88 10/13/18 15:26 Respiratory Rate 18 10/13/18 16:38 Respiratory Effort Non-Labored 10/13/18 16:38 Respiratory Depth Normal 10/13/18 16:38 Respiratory Pattern Normal 10/13/18 16:38 Blood Pressure 141/92 H 10/13/18 15:26 Blood Pressure Position Sitting 10/13/18 15:26 Pulse Oximetry 96 10/13/18 15:26 Oxygen Delivery Method Room Air 10/13/18 15:26 Oxygen Flow Rate 0 10/13/18 15:26 Pain Level 6 10/13/18 16:38 Lab/Test Results Lab/Test Results: Laboratory Tests Range/Units 10/13/18 10/13/18 10/13/18 15:45 15:45 15:45 WBC (4.4-10.8) k/cumm 7.81 RBC (4.50-6.00) m/cumm 5.43 Hgb (13.5-17.5) g/dL 17.2 Hct (40.0-50.0) % 50.5 H MCV (80-95) fL 93.0 MCH (27.0-33.0) pg 31.7 MCHC (32.0-36.0) g/dL 34.1 RDW (11.8-14.1) % 12.5 Plt Count (130-400) x1000/uL 366 MPV (8.0-11.0) fL 9.3 Immature Gran % 0.1 Neutrophils % 67.5 Lymphocytes % 22.8 Monocytes % 6.9 Eosinophils % 2.3 Basophils % 0.4 Absolute Neutrophils (1.2-6.7) k/cumm 5.27 Absolute Lymphocytes (1.2-3.4) k/cumm 1.78 Absolute Monocytes (0.11-0.7) k/cumm 0.54 Absolute Eosinophils (0.0-0.7) k/cumm 0.18 Absolute Basophils (0.0-0.2) k/cumm 0.03 D-Dimer (<500) ng/mlFEU 121 Sodium (136-145) mmol/L 138 Potassium (3.5-5.1) mmol/L 3.9 Chloride (98-107) mmol/L 104 Carbon Dioxide (21.0-32.0) mmol/L 21.6 Anion Gap (3-11) mmol/L 12.4 H BUN (7-18) mg/dL 16 Creatinine (0.70-1.30) mg/dL 1.29 Estimated GFR/1.73 m2 (mL/min/1.73m2) >= 60.00 Glucose (70-100) mg/dL 125 H Calcium (8.5-10.1) mg/dL 8.8 Magnesium (1.8-2.4) mg/dL 2.2 Total Bilirubin (0.2-1.0) mg/dL 0.3 AST (15-37) U/L 5 L ALT (12-78) U/L 15 Alkaline Phosphatase (46-116) U/L 87 Troponin I (0.00-0.06) ng/mL < 0.05 Total Protein (6.4-8.2) g/dL 8.3 H Albumin (3.4-5.0) g/dL 4.1
[2018-10-13] MEDS: Ketorolac 30 MG/ML VIAL IVP (17:45)
[2018-10-13] MEDS: Lidocaine 5% Patch 1 PATCH TP (17:46)
== END 2018-10-13 18:22 | disposition home or self-care (01) ==
PROVIDERS: Emergency Provider Physician Assistant; PCP Nurse Practitioner Family
DX: S29.011A Strain of muscle and tendon of front wall of thorax, initial encounter (principal); X50.3XXA Overexertion from repetitive movements, initial encounter; Y99.0 Civilian activity done for income or pay
CPT/HCPCS: 36415; 80053; 93005; 96374; 99285; 71046; 83735; 84484; 85025; 85379; 93010; J1885

== ENCOUNTER → 2018-11-25 08:31 | Outpatient (BNVA) | payer MEDICARE, MEDICAID, SELFPAY | PROVIDERS: PCP Nurse Practitioner Family; Referring Provider Nurse Practitioner Family; Visit Provider Student in an Organized Health Care Education/Training Program | DX: M75.81 Other shoulder lesions, right shoulder (principal); M75.21 Bicipital tendinitis, right shoulder; M77.11 Lateral epicondylitis, right elbow | CPT/HCPCS: 99213 ==

== ENCOUNTER 2018-11-29 18:27 | Emergency (ER) | payer MEDICARE, MEDICAID, SELFPAY ==
[2018-11-29 18:30] VITALS: BP 144/98; PULSE 100; RESP 16; TEMP 37.2; O2SAT 95
[2018-11-29 18:43] VITALS: RESP 16
--- NOTE | 2018-11-29 18:44 | ED.GENADUL_ITS ---
Discharge Plan Disposition Patient Disposition: HOME Condition: Stable Discharge Details Chief Complaint: GenMedical Clinical Impression: Consciousness loss, transient Primary Care Provider: Rosario Varela ED Provider: Leighton Diaz Home Meds and New Rx's Prescriptions: Continued multivitamin tablet,chewable 1 tab PO DAILY RF: 0 sertraline [Zoloft] 25 MG tablet 25 mg PO DAILY RF: 0 carbamazepine [Tegretol] 200 MG tablet 400 mg PO HS RF: 0 carbamazepine [Tegretol] 200 MG tablet 600 mg PO DAILY RF: 0 levothyroxine 25 MCG tablet 1.25 mcg PO HS RF: 0 ibuprofen 600 mg tablet 600 mg PO Q6H PRN (Reason: pain) Qty: 20 RF: 0 methocarbamol [Robaxin-750] 750 mg tablet 750 mg PO QID PRN (Reason: muscle spasm) Qty: 10 RF: 0 lidocaine [Lidoderm] 5 % adhesive patch,medicated 1 patch TP DAILY Qty: 15 RF: 0 testosterone cypionate 100 MG/ML oil 1.2 ml IM Q14D RF: 0 amitriptyline 25 MG tablet 25 mg PO HS RF: 0 gemfibrozil 600 MG tablet 600 mg PO BID RF: 0 ranitidine HCl [Zantac] 150 mg tablet 150 mg PO PRN PRNRF: 0 ibuprofen 600 mg tablet 600 mg PO QID PRN (Reason: pain) Qty: 20 RF: 0 lidocaine [Lidoderm] 5 % adhesive patch,medicated 1 patch TP DAILY PRN (Reason: pain) Qty: 15 RF: 0 Discharge Instructions Additional Instructions: Your exam, blood work and imaging did not show any concerning findings follow up with your primary care provider within 1-2 weeks. 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 he states he had two episodes lasting several minutes where he felt like he was unsconisous but was standing and did not fall and does remember everything that happened but felt everything was blacked out. did not fall, no chest pain, no shortness of breath or n/v and no weakness. He has no focal neuro deficits on exam and nih of 0 and feels well now other than very mild general headache. He states he has been working a lot recently but denies any increased stressors in his life. Will obtian lab work and ecg though unlikely syncope given he remembers everything and obtain ct head as potential for possible seizure though story isn't classic for this. will monitor while here. no reported focal weakness or sensation deficits so doubt tia pt reamins stable and now has no symptoms. Labs and imaging show no acute findings, radiology from [facility] states can't exclude overshunting but has no weakness or severe headaches to suggest this. Advised f/u with pcp for posible outpatient mri vs neurology referral, return precautions given Differential Diagnosis Differential Diagnosis: absence seizure, syncope, stress response Medical Records Medical records reviewed: Yes I reviewed the patient's medical records. Imaging Data Radiologic Study: Attestation: I personally reviewed and interpreted this imaging study as follows: Imaging: CT Scan Radiologist's impression: IMPRESSION: No acute finding. Collapsed lateral ventricles. Over shunting is not excluded. Clinically correlate. Lab Data Lab results reviewed: Yes I reviewed the patient's lab results. ECG Data Attestation: I personally reviewed and interpreted this ECG (s) as follows: Prior ECG tracings: not available for review Interpretation: sinus rhythm, rate of 90, pr 120, qtc 389 HPI General Mode of arrival: ambulatory . Date/Time Provider Initiated Documentation: 11/29/18 18:30 . Limitations to Documentation: no limitations . Information obtained by: patient . History of Present Illness 48 year old M presents to the emergency department with the chief complaint of blacked out, Patient started experiencing this hour(s) (2) and it has been constant. No relieving factors improve symptom(s), No exacerbating factors reported . Patient did receive the following treatments prior to arrival, none Related Data Home Medications Medication Instructions Recorded Confirmed carbamazepine [Tegretol] 400 mg PO HS 10/22/12 11/29/18 carbamazepine [Tegretol] 600 mg PO DAILY 10/22/12 11/29/18 levothyroxine 1.25 mcg PO HS 12/17/14 11/29/18 amitriptyline 25 mg PO HS 04/10/16 11/29/18 gemfibrozil 600 mg PO BID 04/10/16 11/29/18 testosterone cypionate 1.2 ml IM Q14D 04/10/16 11/29/18 sertraline [Zoloft] 25 mg PO DAILY tab-cap 05/29/17 11/29/18 multivitamin 1 tab PO DAILY 12/11/17 11/29/18 ranitidine HCl [Zantac] 150 mg PO PRN PRN 01/08/18 11/29/18 ibuprofen 600 mg PO QID PRN #20 tab 08/05/18 11/29/18 lidocaine [Lidoderm] 1 patch TP DAILY PRN #15 each 08/05/18 11/29/18 ibuprofen 600 mg PO Q6H PRN #20 tab 10/13/18 11/29/18 lidocaine [Lidoderm] 1 patch TP DAILY #15 each 10/13/18 11/29/18 methocarbamol [Robaxin-750] 750 mg PO QID PRN #10 tab 10/13/18 11/29/18 Previous Rx's Medication Instructions Recorded ibuprofen 600 mg PO QID PRN #20 tab 08/05/18 lidocaine [Lidoderm] 1 patch TP DAILY PRN #15 each 08/05/18 ibuprofen 600 mg PO Q6H PRN #20 tab 10/13/18 lidocaine [Lidoderm] 1 patch TP DAILY #15 each 10/13/18 methocarbamol [Robaxin-750] 750 mg PO QID PRN #10 tab 10/13/18 Allergies Allergy/AdvReac Type Severity Reaction Status Date / Time Penicillins Allergy Severe Anaphylaxsi Verified 11/29/18 18:36 s vancomycin Allergy Severe Skin Rash Verified 11/29/18 18:36 latex Allergy Intermediate hives with Verified 11/29/18 18:36 latex powdered gloves General Stated Complaint: GenMedical GLO: 3 Review of Systems Review of Systems ROS Unobtainable: All systems reviewed & are unremarkable except as noted in HPI and below Constitutional Constitutional: Denies chills, Denies fever(s) and Denies weakness Cardiovascular Cardiovascular: Denies chest pain and Denies dyspnea Respiratory Respiratory: Denies cough and Denies dyspnea Gastrointestinal Gastrointestinal: Denies abdominal pain, Denies nausea and Denies vomiting Musculoskeletal Musculoskeletal: Denies joint swelling Neurologic Neurologic: Denies weakness [facility] Social History Smoking/Tobacco Use Status: Never Alcohol Intake: never Drug use: Never Substance use type: does not use Do you feel safe at home: Yes Do you feel safe in your relationship?: Yes Exam Const General: no acute distress Orientation: alert HENMT Head: normal to inspection Ears: external ears normal General nose exam: external nose normal Mouth: moist mucous membranes Eyes General: appearance normal, both eyes and all related structures Neck Neck: normal visual inspection Resp Effort & Inspection: normal respiratory effort and able to speak in complete sentences Cardio Rate: regular rate Skin General skin exam: no rashes or lesions noted Neuro General: alert and oriented x3 Extrem General: normal to inspection Psych Mental Status: mental status grossly normal Course Vital Signs Vital signs: Vital Signs Temperature 37.2 C 11/29/18 18:30 Pulse 100 H 11/29/18 18:30 Respiratory Rate 16 11/29/18 18:30 Blood Pressure 144/98 H 11/29/18 18:30 Pulse Oximetry 95 11/29/18 18:30 Temperature 37.2 C 11/29/18 18:30 Temperature Source Skin 11/29/18 18:30 Pulse 100 H 11/29/18 18:30 Respiratory Rate 16 11/29/18 18:30 Respiratory Effort Non-Labored 11/29/18 18:35 Blood Pressure 144/98 H 11/29/18 18:30 Blood Pressure Position Sitting 11/29/18 18:30 Pulse Oximetry 95 11/29/18 18:30 Oxygen Delivery Method Room Air 11/29/18 18:30 Oxygen Flow Rate 0 11/29/18 18:30
[2018-11-29 19:20] LABS: Abs Immature Grans 0.01 k/cumm (0.0-0.09); Absolute Basophil Count 0.04 k/cumm (0.0-0.2); Absolute Eosinophil Count 0.13 k/cumm (0.0-0.7); Absolute Lymphocyte Count 1.52 k/cumm (1.2-3.4); Absolute Monocyte Count 0.44 k/cumm (0.11-0.7); Absolute Neutrophil Count 4.88 k/cumm (1.2-6.7); Basophils % 0.6; Eosinophils % 1.9; HCT 47.1 % (40.0-50.0); Immature Grans % 0.1; Lymphocytes % 21.7; Mean Corpuscular Hemoglobin 31.7 pg (27.0-33.0); Mean Corpuscular Volume 93.5 fL (80-95); Mean Platelet Volume 9.1 fL (8.0-11.0); Monocytes % 6.3; Neutrophils % 69.4; Platelet Count 322 x1000/uL (130-400); RBC 5.04 m/cumm (4.50-6.00); RBC Distribution Width 12.8 % (11.8-14.1); White Blood Cell Count 7.02 k/cumm (4.4-10.8)
--- NOTE | 2018-11-29 19:30 | DI.CT_ITS ---
EXAM: CT HEAD WO CLINICAL HISTORY: seizure. TECHNIQUE: COMPARISON: CT HEAD WO from 11/10/2017 FINDINGS: Bilateral frontal gala holes are again noted. There is a right-sided ventriculoperitoneal extending into the ventricles in the midline. The ventricles are collapsed. The findings appear unchanged wh en compared with the previous exam. There is no evidence of intracranial hemorrhage, mass or fluid c ollection. No acute skull findings are seen. The orbits are unremarkable as visualized. IMPRESSION: Stable appearance ventriculoperitoneal shunt and collapsed ventricles. No acute abnormality.
[2018-11-29 19:33] LABS: ALT 6 U/L (16-63); AST 11 U/L (15-37); Alkaline Phosphatase 90 U/L (46-116); Anion Gap 11.9 mmol/L (3-11); BUN 16 mg/dL (7-18); Bilirubin, Total 0.2 mg/dL (0.2-1.0); CO2 21.1 mmol/L (21.0-32.0); CREATININE 1.28 mg/dL (0.70-1.30); Calcium 8.8 mg/dL (8.5-10.1); Chloride 107 mmol/L (98-107); Glucose 106 mg/dL (70-100); INR 1.1 (0.9-1.1); Magnesium 2.1 mg/dL (1.8-2.4); PTT Activated 24.9 sec (21.0-31.4); Potassium 3.7 mmol/L (3.5-5.1); Prothrombin Time 10.7 sec (9.3-11.0); Sodium 140 mmol/L (136-145); Total Protein 7.9 g/dL (6.4-8.2)
[2018-11-29 19:47] VITALS: BP 140/84; PULSE 74; RESP 16; O2SAT 98
--- NOTE | 2018-11-29 19:57 | DI.VRAD_ITS ---
PROCEDURE INFORMATION: Exam: CT Head Without Contrast Exam date and time: 11/29/2018 6:43 PM Clinical history: 48 years old, male; Other: Seizure; Prior surgery TECHNIQUE: Imaging protocol: Computed tomography of the head without contrast. COMPARISON: CT HEAD WO 11/10/2017 3:17 PM FINDINGS: Brain: Normal. No hemorrhage. Unremarkable white matter. No mass effect. Ventricles: Right [employer] shunt ends with tip in the midline within the lateral ventricle. The lateral ventricles are collapsed. Over shunting is not excluded Bones/joints: Multiple bilateral gala holes. Sinuses: Visualized sinuses are unremarkable. No fluid levels. Mastoid air cells: Visualized mastoid air cells are well aerated. Soft tissues: Unremarkable. IMPRESSION: No acute finding. Collapsed lateral ventricles. Over shunting is not excluded. Clinically correlate. Dictated and Authenticated by: Amber Figueroa MD. Ordering:SELINA Manzanares MD
[2018-11-29 20:21] VITALS: BP 146/100; PULSE 73; RESP 16; O2SAT 94
--- NOTE | 2018-11-29 20:23 | NUR.NOTE ---
Discharge instructions reviewed with verbal understanding, aware to f/u with pcp as needed. ambulated to exit with steady gait.
== END 2018-11-29 20:22 | disposition home or self-care (01) ==
PROVIDERS: Emergency Provider Emergency Medicine; PCP Nurse Practitioner Family
DX: R55 Syncope and collapse (principal)
CPT/HCPCS: 36415; 80053; 93005; 99284; 70450; 83735; 85025; 85610; 85730; 93010

== ENCOUNTER 2018-12-10 16:38 | Outpatient (REF) | payer MEDICARE, MEDICAID, SELFPAY ==
[2018-12-10 21:34] LABS: Hemoglobin A1C 5.3 % (4.5-6.2)
[2018-12-10 22:00] LABS: ALT 12 U/L (16-63); AST 11 U/L (15-37); Albumin 4.3 g/dL (3.4-5.0); Alkaline Phosphatase 96 U/L (46-116); Anion Gap 14.9 mmol/L (3-11); BUN 19 mg/dL (7-18); Bilirubin, Total 0.4 mg/dL (0.2-1.0); CO2 21.1 mmol/L (21.0-32.0); Calcium 9.4 mg/dL (8.5-10.1); Calculated LDL 95 mg/dL; Chloride 106 mmol/L (98-107); Cholesterol 162 mg/dL (50-200); Estimated GFR 59.43 (mL/min/1.73m2); Glucose 100 mg/dL (70-100); HDL Cholesterol 40 mg/dL (40-60); Potassium 4.1 mmol/L (3.5-5.1); Sodium 142 mmol/L (136-145); TROPONIN-I 10.3 ug/mL (4.0-12.0); Total Protein 8.1 g/dL (6.4-8.2); Triglyceride 138 mg/dL (30-150)
== END 2018-12-10 16:58 ==
LOC: NCHCN 16:38
PROVIDERS: PCP Nurse Practitioner Family; Visit Provider Nurse Practitioner Family
DX: E03.9 Hypothyroidism, unspecified (principal); E78.5 Hyperlipidemia, unspecified; E29.1 Testicular hypofunction; R07.9 Chest pain, unspecified; K30 Functional dyspepsia; F32.9 Major depressive disorder, single episode, unspecified; G47.31 Primary central sleep apnea; G40.909 Epilepsy, unspecified, not intractable, without status epilepticus; Z51.81 Encounter for therapeutic drug level monitoring; Z79.899 Other long term (current) drug therapy
CPT/HCPCS: 80053; 80061; 80156; 83036; 84443

== ENCOUNTER 2019-01-12 14:43 | Emergency (ER) | payer MEDICARE, SELFPAY ==
[2019-01-12 14:45] VITALS: BP 159/103; PULSE 103; RESP 18; TEMP 36.5; O2SAT 97
--- NOTE | 2019-01-13 08:42 | W.ED.GENAD ---
Discharge Plan Disposition Patient Disposition: HOME Condition: Good Discharge Details Chief Complaint: DentalOral Clinical Impression: Dental infection Primary Care Provider: Rosario Varela ED Provider: Rosario Jones Home Meds and New Rx's Prescriptions: New clindamycin HCl 300 mg capsule 300 mg PO TID Qty: 30 RF: 0 No Action multivitamin tablet,chewable 1 tab PO DAILY RF: 0 sertraline [Zoloft] 25 MG tablet 25 mg PO DAILY RF: 0 carbamazepine [Tegretol] 200 MG tablet 400 mg PO HS RF: 0 carbamazepine [Tegretol] 200 MG tablet 600 mg PO DAILY RF: 0 levothyroxine 25 MCG tablet 1.25 mcg PO HS RF: 0 ibuprofen 600 mg tablet 600 mg PO Q6H PRN (Reason: pain) Qty: 20 RF: 0 methocarbamol [Robaxin-750] 750 mg tablet 750 mg PO QID PRN (Reason: muscle spasm) Qty: 10 RF: 0 testosterone cypionate 100 MG/ML oil 1.2 ml IM Q14D RF: 0 amitriptyline 25 MG tablet 25 mg PO HS RF: 0 gemfibrozil 600 MG tablet 600 mg PO BID RF: 0 ranitidine HCl [Zantac] 150 mg tablet 150 mg PO PRN PRNRF: 0 Discharge Instructions Instructions: Dental Abscess (ED) Additional Instructions: Drink plenty of fluids. Use antibiotic as prescribed. Ice to your cheek for discomfort. Tylenol or Motrin for soreness if needed. Warm salt water rinses after eating or drinking. Follow-up with a dentist. Return for any worsening or concerns sooner if needed specifically for facial swelling, increasing pain, difficulty eating or drinking or worsening concerns if needed sooner Discharge Data Discharge Date/Time-TO BE ENTERED AT DEPARTURE: 01/12/19 16:30 Medical Decision Making Is a 48-year-old patient who presents for a known dental fracture which occurred approximately 6 months ago. Patient noted in the last few days onset of pain at the tooth concerning for possible infection. Patient is reaching out to dentist locally. Patient requesting antibiotics. On exam patient has no significant trismus or voice change. Tooth #22 on the left anterior lower jaw is noted to have a fracture with associated decay. No obvious fluctuant abscess present with palpation although patient does have tenderness with palpation. No significant facial swelling at this time. Patient has no sign of complication due to dental infection. Patient will reach out to dentist locally. Will prescribe a course of clindamycin as patient is noted to have a penicillin allergy. Discussed conservative treatment. Discussed alarming symptoms for which patient should have immediate return. Patient reports his understanding. The patient was stable and requested discharge. Prior to discharge, my usual and customary return precautions were reviewed with the patient - this included follow-up instructions and reasons to return to the Emergency Department if conditions worsens, does not improve as expected, or other new concerns arise. HPI General Date/Time Provider Initiated Documentation: 01/12/19 15:47. HPI Narrative: This is a 48-year-old patient who presents for dental pain. Patient reports left lower anterior dental pain which began in the last 3 days. Patient reports he has a known dental fracture which occurred approximately 6 months ago but has never been bothersome. Patient reports in the last 3 days the fractured tooth has become more bothersome he is concerned for the possibility of an infection. Patient requesting antibiotics. Patient denies significant facial swelling. Patient reports constant sensitivity. Patient does have a history of normal pressure hydrocephalus and has a [employer]AYER shunt in place in the right aspect of his neck. Patient denies any headache, dizziness, nausea, vomiting or changes in mental status which are notable in the last several days. Patient reports due to his normal pressure hydrocephalus he typically sleeps in an upright position due to the [employer] shunt. Patient reports despite sleeping in an upright position he has had persistent dental pain. No relief with [id number] medication. Denies trismus or voice change. No other concerns or complaints. Denies associated malaise or ill feeling. Related Data Home Medications Medication Instructions Recorded Confirmed carbamazepine [Tegretol] 400 mg PO HS 10/22/12 01/12/19 carbamazepine [Tegretol] 600 mg PO DAILY 10/22/12 01/12/19 levothyroxine 1.25 mcg PO HS 12/17/14 01/12/19 amitriptyline 25 mg PO HS 04/10/16 01/12/19 gemfibrozil 600 mg PO BID 04/10/16 01/12/19 testosterone cypionate 1.2 ml IM Q14D 04/10/16 01/12/19 sertraline [Zoloft] 25 mg PO DAILY tab-cap 05/29/17 01/12/19 multivitamin 1 tab PO DAILY 12/11/17 01/12/19 ranitidine HCl [Zantac] 150 mg PO PRN PRN 01/08/18 01/12/19 ibuprofen 600 mg PO Q6H PRN #20 tab 10/13/18 01/12/19 methocarbamol [Robaxin-750] 750 mg PO QID PRN #10 tab 10/13/18 01/12/19 clindamycin HCl 300 mg PO TID #30 cap 01/12/19 Previous Rx's Medication Instructions Recorded ibuprofen 600 mg PO Q6H PRN #20 tab 10/13/18 methocarbamol [Robaxin-750] 750 mg PO QID PRN #10 tab 10/13/18 clindamycin HCl 300 mg PO TID #30 cap 01/12/19 Allergies Allergy/AdvReac Type Severity Reaction Status Date / Time Penicillins Allergy Severe Anaphylaxsi Verified 01/12/19 14:51 s vancomycin Allergy Severe Skin Rash Verified 01/12/19 14:51 latex Allergy Intermediate hives with Verified 01/12/19 14:51 latex powdered gloves General Stated Complaint: DentalOral GLO: 4 Review of Systems All systems reviewed & are unremarkable except as noted in HPI and below Constitutional Constitutional: Denies chills, Denies fatigue, Denies fever(s), Denies headache(s) and Denies malaise ENT Ears, Nose, Mouth, and Throat: Reports dental pain, Denies dizziness, Denies headache(s), Denies nasal congestion, Denies nasal discharge and Denies sore throat Respiratory Respiratory: Denies cough and Denies pain with cough Gastrointestinal Gastrointestinal: Denies diarrhea, Denies nausea and Denies vomiting Neurologic Neurologic: Denies dizziness and Denies headache(s) Endocrine Endocrine: Denies fatigue [facility] Medical History Abdominal pain Chest pain (Acute) Chronic headaches Depression (Chronic) Dyspepsia (Acute) Epilepsy (Acute) History of head injury (Acute) HLD (hyperlipidemia) (Acute) HTN (hypertension) (Chronic) Hydrocephalus Hypothyroid (Chronic) Mild cognitive impairment (Acute) Neck pain (Acute) Paresthesia of foot (Acute) Seizure disorder (Chronic) Sleep apnea (Acute) Tubular adenoma of colon (Acute) Surgical History Intracranial shunt with several revisions S/P cholecystectomy (Acute) Social History Smoking/Tobacco Use Status: Never Alcohol Intake: never Drug use: Never Substance use type: does not use Do you feel safe at home: Yes Do you feel safe in your relationship?: Yes Exam Narrative Exam Narrative: CONST: Healthy appearing patient, in no acute distress. Well hydrated. Alert and alert. HENMT: Head nomocephalic, normal to inspection. Atraumatic. Hearing grossly normal. TMs intact bilaterally without associated findings of infection. External canal normal. Posterior pharynx normal without erythema. No uvula shift. Patient with widespread dental caries. Patient has an obvious fracture with associated decay noted to tooth #22. No obvious gum swelling however does have notable tenderness at the gumline. No palpable abscess at this time EYES: General normal appearance. Alignment normal. Eyelids normal. Conjunctiva normal. NECK: Normal visual inspection. FROM. Trachea midline. No Midline tenderness. No cervical lymphadenopathy present SKIN: Normal. Dry. No rashes. No facial cellulitis NEURO: Alert and awake. Speech clear. PSYCH: Normal affect. Cooperative. Course Vital Signs Vital signs: Vital Signs Temperature 36.5 C 01/12/19 14:45 Pulse 103 H 01/12/19 14:45 Respiratory Rate 18 01/12/19 14:45 Blood Pressure 159/103 H 01/12/19 14:45 Pulse Oximetry 97 01/12/19 14:45 Temperature 36.5 C 01/12/19 14:45 Temperature Source Temporal Artery Scan 01/12/19 14:45 Pulse 103 H 01/12/19 14:45 Respiratory Rate 18 01/12/19 14:45 Respiratory Effort Non-Labored 01/12/19 14:50 Blood Pressure 159/103 H 01/12/19 14:45 Blood Pressure Position Sitting 01/12/19 14:45 Pulse Oximetry 97 01/12/19 14:45 Oxygen Delivery Method Room Air 01/12/19 14:45 Oxygen Flow Rate 0 01/12/19 14:45 Pain Level 7 01/12/19 16:13
== END 2019-01-12 16:30 | disposition home or self-care (01) ==
PROVIDERS: Emergency Provider Physician Assistant; PCP Nurse Practitioner Family
DX: R68.84 Jaw pain (principal); K04.7 Periapical abscess without sinus; S02.5XXA Fracture of tooth (traumatic), initial encounter for closed fracture; X58.XXXA Exposure to other specified factors, initial encounter
CPT/HCPCS: 99283

== ENCOUNTER → 2019-01-13 10:31 | Outpatient (BNVA) | payer MEDICARE, SELFPAY | PROVIDERS: PCP Nurse Practitioner Family; Referring Provider Nurse Practitioner Family; Visit Provider Student in an Organized Health Care Education/Training Program | DX: M77.11 Lateral epicondylitis, right elbow (principal); M75.21 Bicipital tendinitis, right shoulder | CPT/HCPCS: 99213 ==

== ENCOUNTER 2019-01-16 11:37 | Emergency (ER) | payer MEDICARE, SELFPAY ==
[2019-01-16] VITALS (46 sets, daily range): BP systolic 116–135; BP diastolic 73–91; PULSE 63–83; RESP 10–22; TEMP 36.7; O2SAT 95–99
--- NOTE | 2019-01-16 11:32 | W.ED.GENAD ---
Discharge Plan Disposition Patient Disposition: HOME Condition: Stable Discharge Details Chief Complaint: Seizure Clinical Impression: Chronic headache, History of seizure Primary Care Provider: Rosario Varela ED Provider: Guera Melgoza Home Meds and New Rx's Prescriptions: Continued multivitamin tablet,chewable 1 tab PO DAILY RF: 0 sertraline [Zoloft] 25 MG tablet 25 mg PO DAILY RF: 0 carbamazepine [Tegretol] 200 MG tablet 400 mg PO HS RF: 0 carbamazepine [Tegretol] 200 MG tablet 600 mg PO DAILY RF: 0 levothyroxine 25 MCG tablet 1.25 mcg PO HS RF: 0 ibuprofen 600 mg tablet 600 mg PO Q6H PRN (Reason: pain) Qty: 20 RF: 0 methocarbamol [Robaxin-750] 750 mg tablet 750 mg PO QID PRN (Reason: muscle spasm) Qty: 10 RF: 0 testosterone cypionate 100 MG/ML oil 1.2 ml IM Q14D RF: 0 amitriptyline 25 MG tablet 25 mg PO HS RF: 0 gemfibrozil 600 MG tablet 600 mg PO BID RF: 0 ranitidine HCl [Zantac] 150 mg tablet 150 mg PO PRN PRNRF: 0 clindamycin HCl 300 mg capsule 300 mg PO TID Qty: 30 RF: 0 Discharge Instructions Instructions: Epilepsy (ED), General Headache (ED), Ventriculoperitoneal Shunt Placement for Hydrocephalus in Adults (GEN) Additional Instructions: Call neurology at [facility] tomorrow to schedule a follow-up appointment for reevaluation of your headaches and seizures. Call neurosurgery at [facility] tomorrow to schedule a follow-up appointment for reevaluation of your LOW ALTITUDE AIR DEFENSE GUNNER shunt. Follow-up with your primary care doctor within the next week for reevaluation. Continue to take your regular medications as directed. Stand Alone Forms: Work Release Discharge Data Discharge Physician: Guera Melgoza Medical Decision Making 1130 -- 48-year-old male with a history of hypertension, hypothyroidism, hydrocephalus with LOW ALTITUDE AIR DEFENSE GUNNER shunt and seizure disorder on Tegretol presents for headache and fatigue for the past few days and possible seizure at home today. Vitals within normal limits. states that patient seems more out of it than usual . Patient also does complain of some left hip pain and he is unsure if he hit his hip today. Patient seems mildly fatigued but otherwise in no acute distress and nontoxic. No evidence of trauma on exam. Pain with range of motion left lateral hip. No deformity, ecchymosis. Neurovascular intact. Due to patient's LOW ALTITUDE AIR DEFENSE GUNNER shunt, will check CT head to assess shunt. We will also place an IV, give bolus IV fluids and check screening labs. 1300 --CT head notes LOW ALTITUDE AIR DEFENSE GUNNER shunt with collapsed ventricles and over shunting cannot be excluded. Will page [facility] neurosurgery for further recommendations. 1500 --Case discussed with [facility] neurosurgery who reviewed the CT images and feel this is unchanged compared to previous CTs and are not concerned about over shunting. Recommend a LOW ALTITUDE AIR DEFENSE GUNNER shunt series for further evaluation. If negative, can be discharged home. Recommend that if patient has nausea vomiting or severe lethargy, to follow-up with them as soon as possible return to the ER. Recommend follow-up with neurology for headaches and seizures. 1600 --LOW ALTITUDE AIR DEFENSE GUNNER shunt series within normal limits. Patient is texting on phone and laughing with family members and appears in no acute distress. Offered to call [facility] neurology for further discussion regarding his headaches and seizures but he declines and would prefer to go home. He was unable to give a urine sample after liter IV fluids. He is advised to follow-up with the primary care doctor this week and to return here with any concerns. Medical Records Medical records reviewed: Yes I reviewed the patient's medical records. Imaging Data Radiologic Study: Radiologist's impression: CT Head Without Contrast Exam date and time: 01/16/2019 12:05 PM Age: 48 years old Clinical history: Other: Possible seizure; Prior surgery; Surgery type: Shunt placed when patient was less than 4 yrs old. TECHNIQUE: Imaging protocol: Computed tomography of the head without contrast. Radiation optimization: All CT scans at this facility use at least one of these dose optimization techniques: automated exposure control; mA and/or kV adjustment per patient size (includes targeted exams where dose is matched to clinical indication); or iterative reconstruction. COMPARISON: CT HEAD WO 11/29/2018 7:27 PM FINDINGS: Brain: Normal. No hemorrhage. Unremarkable white matter. No mass effect. Mild crowding of the foramen magnum by the cerebellar tonsils. Ventricles: Right ventriculoperitoneal shunt ends with tip in the midline via the right lateral ventricle. Again seen, the ventricles are collapsed and over-shunting cannot be excluded. Bones/joints: No acute fracture. Bilateral gala holes. Sinuses: Visualized sinuses are unremarkable. No fluid levels. Mastoid air cells: Visualized mastoid air cells are well aerated. Soft tissues: Unremarkable. IMPRESSION: LOW ALTITUDE AIR DEFENSE GUNNER shunt with collapsed ventricles. Over-shunting cannot be excluded. Recommend clinical correlation. XR Shunt Series With 4 XR Procedures Exam date and time: 01/16/2019 2:56 PM Age: 48 years old Clinical history: Pain; Other: ALICEA; Headache not specified; Patient HX: Headache, HX vp research shunt, assess shunt TECHNIQUE: Imaging protocol: XR Shunt Series was performed with skull less than 4 views, neck 1 view, chest 1 view, and abdomen 1 view. COMPARISON: CT HEAD WO 01/16/2019 12:09 PM FINDINGS: Tubes, catheters and devices: Ventriculoperitoneal catheter is present. The catheter is seen coursing through the neck and chest. The distal catheter tip in the abdomen. No obvious kinking. No breakage. Sinuses: Visualized paranasal sinuses are well aerated. Airway: Upper airway and trachea are unremarkable in the neck and chest. Lungs: No consolidations. Gastrointestinal tract: Bowel is unremarkable. Organs: Cholecystectomy clips. Bones/joints: Normal. No fracture. No dislocation. Soft tissues: Unremarkable. IMPRESSION: LOW ALTITUDE AIR DEFENSE GUNNER shunt in satisfactory position as described. XR Left Hip with Pelvis when Performed Exam date and time: 01/16/2019 12:18 PM Age: 48 years old Clinical history: Patient HX: Left hip pain S/P fall. TECHNIQUE: Imaging protocol: XR Left hip with pelvis when performed. Views: 2 or 3 views. COMPARISON: CT Private^ROUTINE ABDOMEN PELVIS WITH CONTRAST (Adult) 11/10/2017 5:12 PM FINDINGS: Bones/joints: Unremarkable. No acute fracture. Soft tissues: Unremarkable. IMPRESSION: No acute findings. Lab Data Lab results reviewed: Yes I reviewed the patient's lab results. Labs: Laboratory Tests Range/Units 01/16/19 01/16/19 01/16/19 11:15 11:15 11:15 WBC (4.4-10.8) k/cumm 8.38 RBC (4.50-6.00) m/cumm 5.84 Hgb (13.5-17.5) g/dL 18.6 H Hct (40.0-50.0) % 54.6 H MCV (80-95) fL 93.5 MCH (27.0-33.0) pg 31.8 MCHC (32.0-36.0) g/dL 34.1 RDW (11.8-14.1) % 12.9 Plt Count (130-400) x1000/uL 409 H MPV (8.0-11.0) fL 9.3 Immature Gran % 0.1 Neutrophils % 66.7 Lymphocytes % 26.0 Monocytes % 5.1 Eosinophils % 1.6 Basophils % 0.5 Absolute Neutrophils (1.2-6.7) k/cumm 5.59 Absolute Lymphocytes (1.2-3.4) k/cumm 2.18 Absolute Monocytes (0.11-0.7) k/cumm 0.43 Absolute Eosinophils (0.0-0.7) k/cumm 0.13 Absolute Basophils (0.0-0.2) k/cumm 0.04 Sodium (136-145) mmol/L 140 Potassium (3.5-5.1) mmol/L 4.0 Chloride (98-107) mmol/L 105 Carbon Dioxide (21.0-32.0) mmol/L 20.7 L Anion Gap (3-11) mmol/L 14.3 H BUN (7-18) mg/dL 16 Creatinine (0.70-1.30) mg/dL 1.28 Estimated GFR/1.73 m2 (mL/min/1.73m2) >= 60.00 Glucose (74-106) mg/dL 139 H Calcium (8.5-10.1) mg/dL 8.9 Total Bilirubin (0.2-1.0) mg/dL 0.5 AST (15-37) U/L 7 L ALT (16-63) U/L 17 Alkaline Phosphatase (46-116) U/L 106 Total Protein (6.4-8.2) g/dL 8.9 H Albumin (3.4-5.0) g/dL 4.3 Urine Color Urine Clarity Urine pH Ur Specific [employer] Urine Protein Urine Ketones Urine Blood Urine Nitrite Urine Bilirubin Urine Urobilinogen Ur Leukocyte Esterase Urine Glucose Urine Opiates Screen Urine Methadone Screen Ur Barbiturates Screen Carbamazepine (4.0-12.0) ug/mL 13.0 H Ur Tricyclics Screen Ur Amphetamines Screen U Benzodiazepines Scrn Urine Cocaine Screen Ur THC Screen Range/Units 01/16/19 01/16/19 14:21 14:21 WBC (4.4-10.8) k/cumm RBC (4.50-6.00) m/cumm Hgb (13.5-17.5) g/dL Hct (40.0-50.0) % MCV (80-95) fL MCH (27.0-33.0) pg MCHC (32.0-36.0) g/dL RDW (11.8-14.1) % Plt Count (130-400) x1000/uL MPV (8.0-11.0) fL Immature Gran % Neutrophils % Lymphocytes % Monocytes % Eosinophils % Basophils % Absolute Neutrophils (1.2-6.7) k/cumm Absolute Lymphocytes (1.2-3.4) k/cumm Absolute Monocytes (0.11-0.7) k/cumm Absolute Eosinophils (0.0-0.7) k/cumm Absolute Basophils (0.0-0.2) k/cumm Sodium (136-145) mmol/L Potassium (3.5-5.1) mmol/L Chloride (98-107) mmol/L Carbon Dioxide (21.0-32.0) mmol/L Anion Gap (3-11) mmol/L BUN (7-18) mg/dL Creatinine (0.70-1.30) mg/dL Estimated GFR/1.73 m2 (mL/min/1.73m2) Glucose (74-106) mg/dL Calcium (8.5-10.1) mg/dL Total Bilirubin (0.2-1.0) mg/dL AST (15-37) U/L ALT (16-63) U/L Alkaline Phosphatase (46-116) U/L Total Protein (6.4-8.2) g/dL Albumin (3.4-5.0) g/dL Urine Color Cancelled Urine Clarity Cancelled Urine pH Cancelled Ur Specific [employer] Cancelled Urine Protein Cancelled Urine Ketones Cancelled Urine Blood Cancelled Urine Nitrite Cancelled Urine Bilirubin Cancelled Urine Urobilinogen Cancelled Ur Leukocyte Esterase Cancelled Urine Glucose Cancelled Urine Opiates Screen Cancelled Urine Methadone Screen Cancelled Ur Barbiturates Screen Cancelled Carbamazepine (4.0-12.0) ug/mL Ur Tricyclics Screen Cancelled Ur Amphetamines Screen Cancelled U Benzodiazepines Scrn Cancelled Urine Cocaine Screen Cancelled Ur THC Screen Cancelled HPI General Mode of arrival: EMS. Date/Time Provider Initiated Documentation: 01/16/19 12:08. Limitations to Documentation: no limitations. Information obtained by: patient. HPI Narrative: Patient is a 48-year-old male with a history of hydrocephalus and LOW ALTITUDE AIR DEFENSE GUNNER shunt, migraines, seizure disorder who presents for headache for the past few days and possible seizure at home today. Patient states he has had difficulty sleeping with headache for the past few days. He states he has headaches often and states this is similar to previous headaches he often has. He states he remembers walking into the bathroom today and the next thing he remembers is sitting on the toilet with his speaking to him. states that when she went into the bathroom she noticed patient was sitting on the toilet and rocking back and forth. She states that he appeared out of it similar to when he had a seizure in the past. states that patient has a history of tonic-clonic as well as absence seizure's. Patient denies missing any of his Tegretol for his seizures recently. He states he has not been sleeping well which can be his norm. He denies any fever, blurry vision, chest pain, shortness of breath, abdominal pain, nausea, vomiting or diarrhea. Related Data Home Medications Medication Instructions Recorded Confirmed carbamazepine [Tegretol] 400 mg PO HS 10/22/12 01/16/19 carbamazepine [Tegretol] 600 mg PO DAILY 10/22/12 01/16/19 levothyroxine 1.25 mcg PO HS 12/17/14 01/16/19 amitriptyline 25 mg PO HS 04/10/16 01/16/19 gemfibrozil 600 mg PO BID 04/10/16 01/16/19 testosterone cypionate 1.2 ml IM Q14D 04/10/16 01/16/19 sertraline [Zoloft] 25 mg PO DAILY tab-cap 05/29/17 01/16/19 multivitamin 1 tab PO DAILY 12/11/17 01/16/19 ranitidine HCl [Zantac] 150 mg PO PRN PRN 01/08/18 01/16/19 ibuprofen 600 mg PO Q6H PRN #20 tab 10/13/18 01/16/19 methocarbamol [Robaxin-750] 750 mg PO QID PRN #10 tab 10/13/18 01/16/19 clindamycin HCl 300 mg PO TID #30 cap 01/12/19 01/16/19 Previous Rx's Medication Instructions Recorded ibuprofen 600 mg PO Q6H PRN #20 tab 10/13/18 methocarbamol [Robaxin-750] 750 mg PO QID PRN #10 tab 10/13/18 clindamycin HCl 300 mg PO TID #30 cap 01/12/19 Allergies Allergy/AdvReac Type Severity Reaction Status Date / Time Penicillins Allergy Severe Anaphylaxsi Verified 01/16/19 11:30 s vancomycin Allergy Severe Skin Rash Verified 01/16/19 11:30 latex Allergy Intermediate hives with Verified 01/16/19 11:30 latex powdered gloves General Stated Complaint: Seizure GLO: 3 Review of Systems All systems reviewed & are unremarkable except as noted in HPI and below Constitutional Constitutional: Reports as per HPI, Denies chills, Denies fever(s) and Reports headache(s) Eyes Eyes: Denies blurry vision ENT Ears, Nose, Mouth, and Throat: Denies dizziness, Reports headache(s), Denies sore throat and Denies throat swelling Cardiovascular Cardiovascular: Denies chest pain and Denies dyspnea Respiratory Respiratory: Denies cough and Denies dyspnea Gastrointestinal Gastrointestinal: Denies abdominal pain, Denies diarrhea and Denies vomiting Genitourinary Genitourinary: Denies hematuria and Denies dysuria Musculoskeletal Musculoskeletal: Denies back pain and Denies numbness Integumentary/Breasts Skin/Breast: Denies lesions and Denies rash Neurologic Neurologic: Denies dizziness, Reports headache(s), Denies focal weakness, Denies numbness and Reports seizure-like activity Allergic/Immunologic Allergic/Immunologic: Denies throat swelling [facility] Medical History Abdominal pain Chest pain (Acute) Chronic headaches Depression (Chronic) Dyspepsia (Acute) Epilepsy (Acute) History of head injury (Acute) HLD (hyperlipidemia) (Acute) HTN (hypertension) (Chronic) Hydrocephalus Hypothyroid (Chronic) Mild cognitive impairment (Acute) Neck pain (Acute) Paresthesia of foot (Acute) Seizure disorder (Chronic) Sleep apnea (Acute) Tubular adenoma of colon (Acute) Surgical History Intracranial shunt with several revisions S/P cholecystectomy (Acute) Social History Smoking/Tobacco Use Status: Never Alcohol Intake: never Drug use: Never Substance use type: does not use Current gender identity: male Do you feel safe at home: Yes Do you feel safe in your relationship?: Yes Exam Const General: cooperative, healthy appearing and no acute distress HENMT Head: normal to inspection Face and sinus: normal facial exam Eyes General: appearance normal, both eyes and all related structures Pupils: PERRL EOM: EOM intact bilaterally and movement deficit Other: Strabismus bilaterally Neck Neck: normal visual inspection and No submandibular swelling Lymphatic: no lymphadenopathy noted Chest Chest: normal inspection of the chest and no tenderness Resp Effort & Inspection: normal respiratory effort and able to speak in complete sentences Auscultation: clear to auscultation bilaterally Cardio Rate: regular rate Rhythm: regular rhythm GI Inspection: normal to inspection Palpation: soft, not firm, not rigid and nontender Auscultation: normal bowel sounds Back/Spine/Pelvis Cervical Spine: No cervical spinal tenderness Thoracic/Lumbar Spine: thoracic and lumbar spine normal to inspection, No thoracic spinal tenderness and No lumbar spinal tenderness Pelvis: no pain with anterior-posterior compression Skin General skin exam: no rashes or lesions noted Neuro General: alert, awake and oriented x3 Cranial Nerves: CN's II-XI intact bilaterally Cognition: normal cognition Speech: speech normal Motor: muscle tone normal throughout and strength 5/5 throughout Sensory Exam: no sensory deficits noted Extrem General: normal to inspection, full ROM, normal capillary refill, no calf tenderness bilaterally and no edema Other: Pain in left hip with range of motion. Tenderness palpation left lateral hip. No evidence of ecchymosis, edema, erythema or open wounds. No pain with range of motion bilateral upper extremities or right lower extremity. Psych Appearance: grossly normal Mental Status: mental status grossly normal Speech and Movement: speech and movement normal Affect: normal affect Course Vital Signs Vital signs: Vital Signs Temperature 98.1 F 01/16/19 11:21 Pulse 80 01/16/19 11:21 Respiratory Rate 16 01/16/19 11:21 Blood Pressure 126/88 01/16/19 11:21 Pulse Oximetry 97 01/16/19 11:21 Temperature 98.1 F 01/16/19 11:21 Pulse 80 01/16/19 11:21 Respiratory Rate 16 01/16/19 11:21 Respiratory Effort Non-Labored 01/16/19 11:27 Respiratory Depth Normal 01/16/19 11:27 Respiratory Pattern Normal 01/16/19 11:27 Blood Pressure 126/88 01/16/19 11:21 Blood Pressure Position Sitting 01/16/19 11:21 Pulse Oximetry 97 01/16/19 11:21 Oxygen Delivery Method Room Air 01/16/19 11:21 Oxygen Flow Rate 0 01/16/19 11:21
[2019-01-16 11:46] LABS: Abs Immature Grans 0.01 k/cumm (0.0-0.09); Absolute Basophil Count 0.04 k/cumm (0.0-0.2); Absolute Eosinophil Count 0.13 k/cumm (0.0-0.7); Absolute Lymphocyte Count 2.18 k/cumm (1.2-3.4); Absolute Monocyte Count 0.43 k/cumm (0.11-0.7); Absolute Neutrophil Count 5.59 k/cumm (1.2-6.7); Basophils % 0.5; Eosinophils % 1.6; HCT 54.6 % (40.0-50.0); HGB 18.6 g/dL (13.5-17.5); Immature Grans % 0.1; Mean Corp. HGB Concentration 34.1 g/dL (32.0-36.0); Mean Corpuscular Hemoglobin 31.8 pg (27.0-33.0); Mean Corpuscular Volume 93.5 fL (80-95); Mean Platelet Volume 9.3 fL (8.0-11.0); Monocytes % 5.1; Neutrophils % 66.7; Platelet Count 409 x1000/uL (130-400); RBC 5.84 m/cumm (4.50-6.00); RBC Distribution Width 12.9 % (11.8-14.1); White Blood Cell Count 8.38 k/cumm (4.4-10.8)
[2019-01-16 11:58] LABS: ALT 17 U/L (16-63); AST 7 U/L (15-37); Albumin 4.3 g/dL (3.4-5.0); Alkaline Phosphatase 106 U/L (46-116); Anion Gap 14.3 mmol/L (3-11); BUN 16 mg/dL (7-18); Bilirubin, Total 0.5 mg/dL (0.2-1.0); CO2 20.7 mmol/L (21.0-32.0); CREATININE 1.28 mg/dL (0.70-1.30); Calcium 8.9 mg/dL (8.5-10.1); Chloride 105 mmol/L (98-107); Glucose 139 mg/dL (74-106); Sodium 140 mmol/L (136-145); Total Protein 8.9 g/dL (6.4-8.2)
--- NOTE | 2019-01-16 12:10 | DI.CT_ITS ---
EXAM: CT HEAD WO CLINICAL HISTORY: possible seizure, CONDUIT WORKER shunt TECHNIQUE: Noncontrast COMPARISON: CT HEAD WO from 11/29/2018 FINDINGS: CONDUIT WORKER shunt tubing again extends from the right frontal region into the right lateral ventricle. The ve ntricles are again noted to be collapsed. No intracranial hemorrhage, mass or infarct is seen. No n ew bony abnormalities are seen. The shunt tubing appears intact where visualized. The sinuses and m astoid air cells appear clear. IMPRESSION: No change in the CONDUIT WORKER shunt positioning. There has been no change in collapsed ventricles.
--- NOTE | 2019-01-16 12:15 | DI.RAD_ITS ---
EXAM: XR HIP LT COMPLETE AP PELVIS INDICATION: s/p fall, r/o acute fracture. COMPARISON: No exams were available for comparison TECHNIQUE: 2D digital imaging was performed. FINDINGS: No fracture or dislocation is seen. The joint spaces are well maintained. SI joints and pubic symph ysis are unremarkable. IMPRESSION: Negative pelvis and left hip.
--- NOTE | 2019-01-16 12:31 | DI.VRAD_ITS ---
PROCEDURE INFORMATION: Exam: XR Left Hip with Pelvis when Performed Exam date and time: 01/16/2019 12:18 PM Age: 48 years old Clinical history: Patient HX: Left hip pain S/P fall. TECHNIQUE: Imaging protocol: XR Left hip with pelvis when performed. Views: 2 or 3 views. COMPARISON: CT Private^ROUTINE ABDOMEN PELVIS WITH CONTRAST (Adult) 11/10/2017 5:12 PM FINDINGS: Bones/joints: Unremarkable. No acute fracture. Soft tissues: Unremarkable. IMPRESSION: No acute findings. Dictated and Authenticated by: Errol Clark MD. Ordering:ANNABEL Lynne MD
--- NOTE | 2019-01-16 12:47 | DI.VRAD_ITS ---
PROCEDURE INFORMATION: Exam: CT Head Without Contrast Exam date and time: 01/16/2019 12:05 PM Age: 48 years old Clinical history: Other: Possible seizure; Prior surgery; Surgery type: Shunt placed when patient was less than 4 yrs old. TECHNIQUE: Imaging protocol: Computed tomography of the head without contrast. Radiation optimization: All CT scans at this facility use at least one of these dose optimization techniques: automated exposure control; mA and/or kV adjustment per patient size (includes targeted exams where dose is matched to clinical indication); or iterative reconstruction. COMPARISON: CT HEAD WO 11/29/2018 7:27 PM FINDINGS: Brain: Normal. No hemorrhage. Unremarkable white matter. No mass effect. Mild crowding of the foramen magnum by the cerebellar tonsils. Ventricles: Right ventriculoperitoneal shunt ends with tip in the midline via the right lateral ventricle. Again seen, the ventricles are collapsed and over-shunting cannot be excluded. Bones/joints: No acute fracture. Bilateral gala holes. Sinuses: Visualized sinuses are unremarkable. No fluid levels. Mastoid air cells: Visualized mastoid air cells are well aerated. Soft tissues: Unremarkable. IMPRESSION: SPORT PSYCHOLOGIST shunt with collapsed ventricles. Over-shunting cannot be excluded. Recommend clinical correlation. THIS REPORT CONTAINS FINDINGS THAT MAY BE CRITICAL TO PATIENT CARE. The findings were verbally communicated via telephone conference with hosea elizabeth at 12:46 PM EST on 01/16/2019. The findings were acknowledged and understood. Dictated and Authenticated by: Errol Clark MD. Ordering:ANNABEL Lynne MD
[2019-01-16] MEDS: Normal Saline 500 ML IV (13:42)
[2019-01-16] MEDS: Acetaminophen 500 MG TAB (13:57)
--- NOTE | 2019-01-16 14:57 | DI.RAD_ITS ---
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 COMPARISON: XR shunt series from 11/10/2017 TECHNIQUE: 2D digital imaging was performed. FINDINGS: There has been no change in shunt tube positioning. No areas of shunt disruption are seen. Heart si ze is normal. The lungs are clear. The shunt tubing again terminates in the right lower quadrant of the abdomen. The bowel gas pattern appears normal. Surgical clips are seen in the right upper quad rant. IMPRESSION: Intact ventriculoperitoneal shunt. No acute abnormality is seen.
--- NOTE | 2019-01-16 15:06 | DI.VRAD_ITS ---
PROCEDURE INFORMATION: Exam: XR Shunt Series With 4 XR Procedures Exam date and time: 01/16/2019 2:56 PM Age: 48 years old Clinical history: Pain; Other: ALICEA; Headache not specified; Patient HX: Headache, HX vp ancillary shunt, assess shunt TECHNIQUE: Imaging protocol: XR Shunt Series was performed with skull less than 4 views, neck 1 view, chest 1 view, and abdomen 1 view. COMPARISON: CT HEAD WO 01/16/2019 12:09 PM FINDINGS: Tubes, catheters and devices: Ventriculoperitoneal catheter is present. The catheter is seen coursing through the neck and chest. The distal catheter tip in the abdomen. No obvious kinking. No breakage. Sinuses: Visualized paranasal sinuses are well aerated. Airway: Upper airway and trachea are unremarkable in the neck and chest. Lungs: No consolidations. Gastrointestinal tract: Bowel is unremarkable. Organs: Cholecystectomy clips. Bones/joints: Normal. No fracture. No dislocation. Soft tissues: Unremarkable. IMPRESSION: CLASSIFIER shunt in satisfactory position as described. Dictated and Authenticated by: Errol Clark MD. Ordering:ANNABEL Lynne MD
== END 2019-01-16 16:38 | disposition home or self-care (01) ==
PROVIDERS: Emergency Provider Physician Assistant; PCP Nurse Practitioner Family
DX: G40.909 Epilepsy, unspecified, not intractable, without status epilepticus (principal); G91.9 Hydrocephalus, unspecified; R51 Headache; G89.29 Other chronic pain; M25.552 Pain in left hip; Z98.2 Presence of cerebrospinal fluid drainage device; I10 Essential (primary) hypertension
CPT/HCPCS: 36415; 80053; 80307; 96360; 99284; 70360; 70450; 71045; 72050; 73502; 74018; 80156; 81003; 85025; 99285

== ENCOUNTER 2019-01-18 08:46 | Outpatient (CLI) | payer MEDICARE, SELFPAY ==
--- NOTE | 2019-01-18 13:30 | DI.RAD_ITS ---
EXAM: XR SHUNT SERIES INDICATION: S/P CATCH BASIN CLEANER SHUNT FOR HYDROCEPHALUS, ASSESS FOR DISCONTINUITY, Z98.2. COMPARISON: XR SHUNT SERIES from 01/16/2019 TECHNIQUE: 2D digital imaging was performed. FINDINGS: There has been no change in shunt positioning when compared with the previous exam. No kinking or sh unt discontinuity is seen. Heart size is normal. The lungs are clear. The bowel gas pattern is unr emarkable. IMPRESSION: Intact ventriculoperitoneal shunt.
== END 2019-01-18 09:06 ==
PROVIDERS: PCP Nurse Practitioner Family; Visit Provider Neurological Surgery
DX: G91.9 Hydrocephalus, unspecified (principal); Z98.2 Presence of cerebrospinal fluid drainage device; Z45.41 Encounter for adjustment and management of cerebrospinal fluid drainage device
CPT/HCPCS: 70360; 71045; 72050; 74018

== ENCOUNTER → 2019-01-27 11:01 | Outpatient (BNVA) | payer MEDICARE, MEDICAID, SELFPAY | PROVIDERS: PCP Nurse Practitioner Family; Referring Provider Nurse Practitioner Family; Visit Provider Nurse Practitioner Gerontology | DX: E29.1 Testicular hypofunction (principal); F52.4 Premature ejaculation; I10 Essential (primary) hypertension | CPT/HCPCS: 99204; 99215 ==

== ENCOUNTER 2019-01-27 16:03 | Emergency (ER) | payer MEDICARE, SELFPAY ==
[2019-01-27] VITALS (18 sets, daily range): BP systolic 113–143; BP diastolic 58–91; PULSE 68–97; RESP 13–20; TEMP 37.1; O2SAT 92–98
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
[2019-01-27] MEDS: Normal Saline 1,000 ML 1000 ML IV (16:41)
[2019-01-27 16:43] LABS: Abs Immature Grans 0.01 k/cumm (0.0-0.09); Absolute Basophil Count 0.04 k/cumm (0.0-0.2); Absolute Eosinophil Count 0.11 k/cumm (0.0-0.7); Absolute Lymphocyte Count 1.87 k/cumm (1.2-3.4); Absolute Monocyte Count 0.25 k/cumm (0.11-0.7); Absolute Neutrophil Count 4.08 k/cumm (1.2-6.7); Basophils % 0.6; Eosinophils % 1.7; HCT 50.5 % (40.0-50.0); Immature Grans % 0.2; Lymphocytes % 29.4; Mean Corp. HGB Concentration 33.7 g/dL (32.0-36.0); Mean Corpuscular Volume 94.9 fL (80-95); Mean Platelet Volume 9.1 fL (8.0-11.0); Monocytes % 3.9; Neutrophils % 64.2; Platelet Count 333 x1000/uL (130-400); RBC 5.32 m/cumm (4.50-6.00); RBC Distribution Width 12.7 % (11.8-14.1); White Blood Cell Count 6.36 k/cumm (4.4-10.8)
[2019-01-27] MEDS: methylPREDNISolone SUCC 125 MG VIAL IVP (16:45)
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
[2019-01-27] MEDS: Prochlorperazine 10 MG/2 ML VIAL IVP (16:50)
[2019-01-27 16:55] LABS: ALT 16 U/L (16-63); AST 9 U/L (15-37); Albumin 4.3 g/dL (3.4-5.0); Alkaline Phosphatase 84 U/L (46-116); Anion Gap 11.1 mmol/L (3-11); BUN 23 mg/dL (7-18); Bilirubin, Total 0.2 mg/dL (0.2-1.0); CO2 26.9 mmol/L (21.0-32.0); CREATININE 1.22 mg/dL (0.70-1.30); Chloride 104 mmol/L (98-107); Glucose 149 mg/dL (74-106); Potassium 3.9 mmol/L (3.5-5.1); Sodium 142 mmol/L (136-145); TROPONIN-I 13.1 ug/mL (4.0-12.0); Total Protein 8.4 g/dL (6.4-8.2)
[2019-01-27] MEDS: ACETAMINOPHEN 1,000 MG/100 ML BTL 400 MG IVPB (16:59)
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
[2019-01-27] MEDS: Ketorolac 15 MG/ML VIAL IVP (17:20)
== END 2019-01-27 17:51 | disposition home or self-care (01) ==
PROVIDERS: Emergency Provider Student in an Organized Health Care Education/Training Program; PCP Nurse Practitioner Family
DX: R56.9 Unspecified convulsions (principal); G91.9 Hydrocephalus, unspecified; Z98.2 Presence of cerebrospinal fluid drainage device; E29.1 Testicular hypofunction; F52.4 Premature ejaculation; I10 Essential (primary) hypertension
CPT/HCPCS: 36415; 80053; 96361; 96365; 96375; 99215; 99284; 70450; 80156; 85025; J0131; J0780; J1885; J2930

== ENCOUNTER 2019-01-28 08:09 | Outpatient (CLI) | payer MEDICARE, SELFPAY ==
[2019-01-28 08:38] LABS: HCT 48.4 % (40.0-50.0); Mean Corp. HGB Concentration 33.1 g/dL (32.0-36.0); Mean Corpuscular Hemoglobin 31.3 pg (27.0-33.0); Mean Corpuscular Volume 94.5 fL (80-95); Platelet Count 369 x1000/uL (130-400); RBC 5.12 m/cumm (4.50-6.00); RBC Distribution Width 12.6 % (11.8-14.1); White Blood Cell Count 15.42 k/cumm (4.4-10.8)
[2019-02-01 15:18] LABS: Testosterone, Free 5.97 ng/dL (4.26-16.4); Testosterone, Total 221 ng/dL (240-950)
== END 2019-01-28 08:29 ==
PROVIDERS: PCP Nurse Practitioner Family; Visit Provider Nurse Practitioner Gerontology
DX: E29.1 Testicular hypofunction (principal)
CPT/HCPCS: 36415; 84402; 84403; 85027

== ENCOUNTER 2019-02-04 12:32 | Emergency (ER) | payer MEDICARE, SELFPAY ==
[2019-02-04 12:37] VITALS: BP 148/104; PULSE 92; RESP 16; TEMP 36.7
--- NOTE | 2019-02-04 12:50 | W.ED.GENAD ---
Discharge Plan Disposition Patient Disposition: HOME Condition: Improving Discharge Details Chief Complaint: Seizure Clinical Impression: Headache, History of hydrocephalus, Seizure disorder, History of creation of ventriculoperitoneal shunt Primary Care Provider: Rosario Varela ED Provider: Guera Melgoza Home Meds and New Rx's Prescriptions: Continued multivitamin tablet,chewable 1 tab PO DAILY RF: 0 metoprolol succinate 25 mg tablet extended release 24 hr 25 mg PO DAILY RF: 0 topiramate 50 mg tablet 50 mg PO BID RF: 0 testosterone enanthate 200 mg/mL oil 200 mg IM Q2W RF: 0 sertraline [Zoloft] 25 mg tablet 150 mg PO DAILY RF: 0 carbamazepine [Tegretol] 200 mg tablet See Rx Instructions PO HS RF: 0 levothyroxine 25 mcg tablet 25 mcg PO HS RF: 0 ibuprofen 600 mg tablet 600 mg PO Q6H PRN (Reason: pain) Qty: 20 RF: 0 amitriptyline 25 MG tablet 25 mg PO HS RF: 0 gemfibrozil 600 MG tablet 600 mg PO BID RF: 0 Discharge Instructions Instructions: Recurrent Seizures in Adults (ED), General Headache (ED) Additional Instructions: Follow-up with [facility] neurology on your scheduled appointment next week February 10 at the headache clinic. You are also recommended to follow-up with the epilepsy clinic as well as neurosurgery at [facility]. Referrals have been placed for these follow-ups but be sure to call neurology and neurosurgery to confirm and make appointments. Return to the emergency department if you develop any worsening or new concerning symptoms. 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 Missed 1 dose of his Tegretol recently. Patient has been seen here twice for similar presentations recently and discharged home with recommendation to follow-up with neurology. 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 He has a follow-up with [facility] neurology next week. Patient expressed frustration with neurology being unable to see him sooner since his visit last month. Patient appears nontoxic. Afebrile. No focal deficits on exam. Will check screening labs, carbamazepine level, CT head and shunt series and follow-up with [facility] neurology. 1500 --labs and imaging reviewed and unremarkable. Normal white blood cell count, electrolytes. Therapeutic carbamazepine level. CT head and shunt series negative. Case discussed with [facility] neurology -no acute medication or other recommendations at this time. She states that patient has a follow-up appointment with the headache clinic on February 10. She discussed that it may be unclear if patient is actually having seizures and recommends that he follow-up with the epilepsy clinic as well. 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 As BELT BUILDER HELPER shunt is intact today, no indication for any emergent follow-up or additional intervention today. A referral was placed to care management to help arrange for this appointment with neurosurgery within the next week. 1600 --patient was given fluids, Toradol and Compazine and feels much better and feels good to go home. He was advised to drink plenty of fluids, get plenty of rest. He was advised to follow-up with neurology and neurosurgery to confirm follow-up. Usual customary return precautions given prior to discharge. Medical Records Medical records reviewed: Yes I reviewed the patient's medical records. 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 The ventricles are intact. The basilar cisterns are patent. The ventriculoperitoneal shunt is stable in position. There has been no change in size of the ventricular system compared to the prior examination. No acute intracranial hemorrhage, midline shift or mass effect is present. No acute calvarial fracture is present. There is again seen a right temporal craniotomy. The visualized paranasal sinuses are clear as are the mastoid air cells. IMPRESSION: No acute intracranial abnormality. XR SHUNT SERIES INDICATION: headache/vp securities shunt, r/o acute process. COMPARISON: XR SHUNT SERIES from 01/18/2019 TECHNIQUE: 2D digital imaging was performed. FINDINGS: The patient has a ventricular peritoneal shunt. The tubing appears to be intact throughout its length. No kinking of the tubing is identified. The heart size and pulmonary vasculature within normal limits. The lungs are clear. There are surgical clips in the right upper quadrant of the abdomen. The bowel gas pattern is nonspecific without evidence of obstruction. IMPRESSION: Intact ventriculoperitoneal shunt. Lab Data Lab results reviewed: Yes I reviewed the patient's lab results. Labs: Laboratory Tests Range/Units 02/04/19 02/04/19 02/04/19 13:10 13:10 13:10 WBC (4.4-10.8) k/cumm 7.72 RBC (4.50-6.00) m/cumm 5.36 Hgb (13.5-17.5) g/dL 16.7 Hct (40.0-50.0) % 50.4 H MCV (80-95) fL 94.0 MCH (27.0-33.0) pg 31.2 MCHC (32.0-36.0) g/dL 33.1 RDW (11.8-14.1) % 12.6 Plt Count (130-400) x1000/uL 313 MPV (8.0-11.0) fL 8.9 Immature Gran % 0.1 Neutrophils % 71.8 Lymphocytes % 20.2 Monocytes % 6.2 Eosinophils % 1.2 Basophils % 0.5 Absolute Neutrophils (1.2-6.7) k/cumm 5.54 Absolute Lymphocytes (1.2-3.4) k/cumm 1.56 Absolute Monocytes (0.11-0.7) k/cumm 0.48 Absolute Eosinophils (0.0-0.7) k/cumm 0.09 Absolute Basophils (0.0-0.2) k/cumm 0.04 Sodium (136-145) mmol/L 142 Potassium (3.5-5.1) mmol/L 4.4 Chloride (98-107) mmol/L 106 Carbon Dioxide (21.0-32.0) mmol/L 26.0 Anion Gap (3-11) mmol/L 10.0 BUN (7-18) mg/dL 20 H Creatinine (0.70-1.30) mg/dL 1.15 Estimated GFR/1.73 m2 (mL/min/1.73m2) >= 60.00 Glucose (74-106) mg/dL 106 Calcium (8.5-10.1) mg/dL 9.2 Total Bilirubin (0.2-1.0) mg/dL 0.2 AST (15-37) U/L 9 L ALT (16-63) U/L 15 L Alkaline Phosphatase (46-116) U/L 80 Total Protein (6.4-8.2) g/dL 8.4 H Albumin (3.4-5.0) g/dL 4.3 Carbamazepine (4.0-12.0) ug/mL 11.8 ECG Data Attestation: I personally reviewed and interpreted this ECG (s) as follows: Interpretation: rate of 87, sinus, no acute ST elevation or depression. IN 114. QTc 416. QRS 86. HPI General Mode of arrival: ambulatory. Date/Time Provider Initiated Documentation: 02/04/19 12:40. Limitations to Documentation: no limitations. Information obtained by: patient. 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 He states he had 3 seizures last approximately 30 seconds occurring within minutes of each other while at work. He is unsure of LOC. He states he recently missed 1 dose of his Tegretol but otherwise has been taking it as prescribed. He denies any known recent illness. He does admit to diffuse headache which he states sometimes is present when he is having issues with his BELT BUILDER HELPER shunt. He has an appointment with [facility] neurology on February 10. He denies any fever, blurry vision, vomiting or dizziness. Related Data Home Medications Medication Instructions Recorded Confirmed amitriptyline 25 mg PO HS 04/10/16 02/04/19 gemfibrozil 600 mg PO BID 04/10/16 02/04/19 multivitamin 1 tab PO DAILY 12/11/17 02/04/19 ibuprofen 600 mg PO Q6H PRN #20 tab 10/13/18 02/04/19 carbamazepine 200 mg tablet See Rx Instructions PO HS 01/27/19 02/04/19 levothyroxine 25 mcg tablet 25 mcg PO HS tab 01/27/19 02/04/19 metoprolol succinate 25 mg 25 mg PO DAILY 01/27/19 02/04/19 tablet,extended release 24 hr sertraline 25 mg tablet 150 mg PO DAILY tab-cap 01/27/19 02/04/19 testosterone enanthate 200 mg/mL 200 mg IM Q2W ml 01/27/19 02/04/19 intramuscular oil topiramate 50 mg tablet 50 mg PO BID 01/27/19 02/04/19 Previous Rx's Medication Instructions Recorded ibuprofen 600 mg PO Q6H PRN #20 tab 10/13/18 Allergies Allergy/AdvReac Type Severity Reaction Status Date / Time Penicillins Allergy Severe Anaphylaxsi Verified 01/27/19 16:09 s vancomycin Allergy Severe Skin Rash Verified 01/27/19 16:09 latex Allergy Intermediate hives with Verified 01/27/19 16:09 latex powdered gloves General Stated Complaint: Seizure GLO: 2 Review of Systems All systems reviewed & are unremarkable except as noted in HPI and below Constitutional Constitutional: Reports as per HPI, Denies chills, Denies fever(s) and Reports headache(s) Eyes Eyes: Denies blurry vision ENT Ears, Nose, Mouth, and Throat: Reports dizziness, Reports headache(s), Denies sore throat and Denies throat swelling Cardiovascular Cardiovascular: Denies chest pain and Denies dyspnea Respiratory Respiratory: Denies cough and Denies dyspnea Gastrointestinal Gastrointestinal: Denies abdominal pain, Denies diarrhea and Denies vomiting Genitourinary Genitourinary: Denies hematuria and Denies dysuria Musculoskeletal Musculoskeletal: Denies back pain and Denies numbness Integumentary/Breasts Skin/Breast: Denies lesions and Denies rash Neurologic Neurologic: Reports dizziness, Reports headache(s), Denies focal weakness, Denies numbness and Reports seizure-like activity Allergic/Immunologic Allergic/Immunologic: Denies throat swelling [facility] Medical History Abdominal pain Chest pain (Acute) Chronic headaches Depression (Chronic) Dyspepsia (Acute) Epilepsy (Acute) History of head injury (Acute) HLD (hyperlipidemia) (Acute) HTN (hypertension) (Chronic) Hydrocephalus Hypothyroid (Chronic) Mild cognitive impairment (Acute) Neck pain (Acute) Paresthesia of foot (Acute) Seizure disorder (Chronic) Sleep apnea (Acute) Tubular adenoma of colon (Acute) Surgical History Intracranial shunt with several revisions S/P cholecystectomy (Acute) Social History Smoking/Tobacco Use Status: Never Alcohol Intake: never Drug use: Never Substance use type: does not use Current gender identity: male Do you feel safe at home: Yes Do you feel safe in your relationship?: Yes Exam Const General: cooperative and healthy appearing Orientation: alert and awake HENMT Head: normal to inspection Ears: hearing grossly normal bilaterally, external ears normal and TM's normal bilaterally General nose exam: external nose normal Face and sinus: normal facial exam Mouth: oral mucosae normal Teeth and gingiva: dentition normal Throat: posterior oropharynx normal Eyes General: appearance normal, both eyes and all related structures Eyelids: eyelids normal Pupils: PERRL EOM: EOM intact bilaterally Other: Chronic strabismus right eye laterally deviated Neck Neck: normal visual inspection Lymphatic: no lymphadenopathy noted Chest Chest: normal inspection of the chest Resp Effort & Inspection: normal respiratory effort and able to speak in complete sentences Auscultation: clear to auscultation bilaterally Cardio Rate: regular rate Rhythm: regular rhythm GI Inspection: normal to inspection Palpation: soft, not firm, no guarding, no hepatosplenomegaly, no masses and nontender Auscultation: normal bowel sounds Back/Spine/Pelvis Back: no CVA tenderness Skin General skin exam: no rashes or lesions noted Neuro General: alert and awake Cranial Nerves: CN's II-XI intact bilaterally Cognition: normal cognition Speech: speech normal Gait: normal gait Motor: muscle tone normal throughout and strength 5/5 throughout Sensory Exam: no sensory deficits noted Extrem General: normal to inspection, full ROM and normal capillary refill Psych Appearance: grossly normal Mental Status: mental status grossly normal Speech and Movement: speech and movement normal Affect: normal affect Thought Process: normal Course Vital Signs Vital signs: Vital Signs Temperature 98.1 F 02/04/19 12:37 Pulse 92 H 02/04/19 12:37 Respiratory Rate 16 02/04/19 12:37 Blood Pressure 148/104 H 02/04/19 12:37 Temperature 98.1 F 02/04/19 12:37 Temperature Source Temporal Artery Scan 02/04/19 12:37 Pulse 92 H 02/04/19 12:37 Respiratory Rate 16 02/04/19 12:37 Blood Pressure 148/104 H 02/04/19 12:37 Blood Pressure Position Sitting 02/04/19 12:37 Oxygen Delivery Method Room Air 02/04/19 12:37 Oxygen Flow Rate 0 02/04/19 12:37 Pain Level 8 02/04/19 12:37
[2019-02-04 13:25] LABS: Abs Immature Grans 0.01 k/cumm (0.0-0.09); Absolute Basophil Count 0.04 k/cumm (0.0-0.2); Absolute Eosinophil Count 0.09 k/cumm (0.0-0.7); Absolute Lymphocyte Count 1.56 k/cumm (1.2-3.4); Absolute Monocyte Count 0.48 k/cumm (0.11-0.7); Absolute Neutrophil Count 5.54 k/cumm (1.2-6.7); Basophils % 0.5; Eosinophils % 1.2; HCT 50.4 % (40.0-50.0); HGB 16.7 g/dL (13.5-17.5); Immature Grans % 0.1; Lymphocytes % 20.2; Mean Corp. HGB Concentration 33.1 g/dL (32.0-36.0); Mean Corpuscular Hemoglobin 31.2 pg (27.0-33.0); Mean Platelet Volume 8.9 fL (8.0-11.0); Monocytes % 6.2; Neutrophils % 71.8; Platelet Count 313 x1000/uL (130-400); RBC 5.36 m/cumm (4.50-6.00); RBC Distribution Width 12.6 % (11.8-14.1); White Blood Cell Count 7.72 k/cumm (4.4-10.8)
--- NOTE | 2019-02-04 13:34 | DI.CT_ITS ---
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 The ventricles are intact. The basilar cisterns are patent. The ventriculoperitoneal shunt is stable in position. There has been no change in size of the ventricular system compared to the prior examination. No acute intracranial hemorrhage, midli ne shift or mass effect is present. No acute calvarial fracture is present. There is again seen a r ight temporal craniotomy. The visualized paranasal sinuses are clear as are the mastoid air cells. IMPRESSION: No acute intracranial abnormality.
[2019-02-04 13:39] LABS: ALT 15 U/L (16-63); AST 9 U/L (15-37); Albumin 4.3 g/dL (3.4-5.0); Alkaline Phosphatase 80 U/L (46-116); BUN 20 mg/dL (7-18); Bilirubin, Total 0.2 mg/dL (0.2-1.0); CREATININE 1.15 mg/dL (0.70-1.30); Calcium 9.2 mg/dL (8.5-10.1); Chloride 106 mmol/L (98-107); Glucose 106 mg/dL (74-106); Potassium 4.4 mmol/L (3.5-5.1); Sodium 142 mmol/L (136-145); Total Protein 8.4 g/dL (6.4-8.2)
--- NOTE | 2019-02-04 13:44 | DI.RAD_ITS ---
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 COMPARISON: XR SHUNT SERIES from 01/18/2019 TECHNIQUE: 2D digital imaging was performed. FINDINGS: The patient has a ventricular peritoneal shunt. The tubing appears to be intact throughout its lengt h. No kinking of the tubing is identified. The heart size and pulmonary vasculature within normal limits. The lungs are clear. There are surgical clips in the right upper quadrant of the abdomen. The bowel gas pattern is nonspe cific without evidence of obstruction. IMPRESSION: Intact ventriculoperitoneal shunt.
[2019-02-04] MEDS: Normal Saline 500 ML IV (14:09)
[2019-02-04 14:12] LABS: TROPONIN-I 11.8 ug/mL (4.0-12.0)
[2019-02-04] MEDS: Prochlorperazine 10 MG/2 ML VIAL IVP (15:35)
[2019-02-04] MEDS: Ketorolac 30 MG/ML VIAL IVP (15:36)
[2019-02-04] MEDS: Normal Saline Flush 10 ML SYR IVP (15:36)
--- NOTE | 2019-02-04 15:42 | NUR.NOTE ---
Nursing Note: Referral to [facility] Neurosurgery for follow up given to Oem Sales Manager. Allyson Hennessy.
[2019-02-04 16:20] VITALS: BP 127/81; PULSE 79; TEMP 36.6; O2SAT 97
--- NOTE | 2019-02-07 15:38 | CMPROGNOTE_ITS ---
- If Service Date Differs Date of service: 02/07/19 Time of Service: 15:38 Care Management Progress Note CM consulted for referral to [facility] Neurosurgery. CM faxed referral to [phone] at 15:11. Fax confirmed.
--- NOTE | 2019-02-07 15:38 | PDOC.ERCMPRO ---
- If Service Date Differs Date of service: 02/07/19 Time of Service: 15:38 Care Management Progress Note CM consulted for referral to [facility] Neurosurgery. CM faxed referral to [phone] at 15:11. Fax confirmed.
== END 2019-02-04 16:20 | disposition home or self-care (01) ==
PROVIDERS: Emergency Provider Physician Assistant; PCP Nurse Practitioner Family
DX: R51 Headache (principal); Q03.9 Congenital hydrocephalus, unspecified; Z98.2 Presence of cerebrospinal fluid drainage device; G40.909 Epilepsy, unspecified, not intractable, without status epilepticus; I10 Essential (primary) hypertension
CPT/HCPCS: 80053; 93005; 96361; 96374; 96375; 99285; 70360; 70450; 71045; 72050; 74018; 80156; 85025; 93010; J0780; J1885

== ENCOUNTER 2019-02-24 11:31 | Emergency (ER) | payer MEDICARE, SELFPAY ==
[2019-02-24 11:33] VITALS: BP 138/103; PULSE 75; RESP 16; TEMP 37; O2SAT 99
--- NOTE | 2019-02-24 11:55 | ED.GENADUL_ITS ---
Discharge Plan Disposition Patient Disposition: HOME Condition: Improving Discharge Details Chief Complaint: DentalOral Clinical Impression: Infection of tooth Primary Care Provider: Rsoario Varela ED Provider: Memo Rodriguez Home Meds and New Rx's Prescriptions: New clindamycin HCl 300 mg capsule 300 mg PO Q6H Qty: 28 RF: 0 Continued multivitamin tablet,chewable 1 tab PO DAILY RF: 0 metoprolol succinate 25 mg tablet extended release 24 hr 25 mg PO DAILY RF: 0 topiramate 50 mg tablet 50 mg PO BID RF: 0 testosterone enanthate 200 mg/mL oil 200 mg IM Q2W RF: 0 sertraline [Zoloft] 25 mg tablet 150 mg PO DAILY RF: 0 carbamazepine [Tegretol] 200 mg tablet See Rx Instructions PO HS RF: 0 levothyroxine 25 mcg tablet 25 mcg PO HS RF: 0 ibuprofen 600 mg tablet 600 mg PO Q6H PRN (Reason: pain) Qty: 20 RF: 0 amitriptyline 25 MG tablet 25 mg PO HS RF: 0 gemfibrozil 600 MG tablet 600 mg PO BID RF: 0 Discharge Instructions Instructions: Dental Abscess (ED) Additional Instructions: Please follow-up with dentistry as you have planned. Warm, salt water gargles to reduce discomfort and improve swelling and drainage. Take clindamycin as prescribed. I recommend you take an [id number] probiotic or daily live culture yogurt when taking this antibiotic. May use Tylenol and ibuprofen as needed for pain. May apply warm compress to area to speed healing. Medical Decision Making 48-year-old male presents with left face swelling, left dental pain, broken first mandibular molar on the left. On exam he is well-appearing and in no acute distress. He does have some mild fluctuance and I am able to express purulent fluid around the base of the tooth. Anesthesia provided with left inferior alveolar block. We will place him on a course of clindamycin. He is to follow-up with dentistry. As there is already drainage do not feel that incision is required. He understands homecare as well as indications to return to the ER. He will follow-up with dentistry. HPI General Mode of arrival: ambulatory . Date/Time Provider Initiated Documentation: 02/24/19 11:31 . Limitations to Documentation: no limitations . Information obtained by: patient . History of Present Illness 48 year old M presents to the emergency department with the chief complaint of Left lower dental pain and broken tooth, described as similar to prior episodes, Quality is described as dull and constant, and is localized to the mouth and left. Patient reports no radiation. Patient started experiencing this day(s) and it has been constant. No relieving factors improve symptom(s), No exacerbating factors reported . Patient notes other (Mild left face swelling); denies fever/chills. Patient did receive the following treatments prior to arrival, none Related Data Home Medications Medication Instructions Recorded Confirmed amitriptyline 25 mg PO HS 04/10/16 02/24/19 gemfibrozil 600 mg PO BID 04/10/16 02/24/19 multivitamin 1 tab PO DAILY 12/11/17 02/24/19 ibuprofen 600 mg PO Q6H PRN #20 tab 10/13/18 02/24/19 carbamazepine 200 mg tablet See Rx Instructions PO HS 01/27/19 02/24/19 levothyroxine 25 mcg tablet 25 mcg PO HS tab 01/27/19 02/24/19 metoprolol succinate 25 mg 25 mg PO DAILY 01/27/19 02/24/19 tablet,extended release 24 hr sertraline 25 mg tablet 150 mg PO DAILY tab-cap 01/27/19 02/24/19 testosterone enanthate 200 mg/mL 200 mg IM Q2W ml 01/27/19 02/24/19 intramuscular oil topiramate 50 mg tablet 50 mg PO BID 01/27/19 02/24/19 clindamycin HCl 300 mg PO Q6H #28 cap 02/24/19 Previous Rx's Medication Instructions Recorded ibuprofen 600 mg PO Q6H PRN #20 tab 10/13/18 clindamycin HCl 300 mg PO Q6H #28 cap 02/24/19 Allergies Allergy/AdvReac Type Severity Reaction Status Date / Time Penicillins Allergy Severe Anaphylaxsi Verified 02/24/19 11:38 s vancomycin Allergy Severe Skin Rash Verified 02/24/19 11:38 latex Allergy Intermediate hives with Verified 02/24/19 11:38 latex powdered gloves General Stated Complaint: DentalOral GLO: 4 Review of Systems Narrative: No change to voice, no drooling, no shortness of breath. Plans to follow-up with dentistry. 6 systems reviewed and otherwise negative [facility] Medical History Abdominal pain Chest pain (Acute) Chronic headaches Depression (Chronic) Dyspepsia (Acute) Epilepsy (Acute) History of head injury (Acute) HLD (hyperlipidemia) (Acute) HTN (hypertension) (Chronic) Hydrocephalus Hypothyroid (Chronic) Mild cognitive impairment (Acute) Neck pain (Acute) Paresthesia of foot (Acute) Seizure disorder (Chronic) Sleep apnea (Acute) Tubular adenoma of colon (Acute) Surgical History Intracranial shunt with several revisions S/P cholecystectomy (Acute) Social History Smoking/Tobacco Use Status: Never Alcohol Intake: never Drug use: Never Substance use type: does not use Current gender identity: male Do you feel safe at home: Yes Do you feel safe in your relationship?: Yes Exam Narrative Exam Narrative: GEN: awake, alert, oriented 3. Pleasant, well groomed, interactive. HEAD: Normocephalic, atraumatic ENT: Mucous membranes moist, oropharynx partially edentulous, tooth approximately #30 on the left mandible is with 2 broken cusps, mild buccal swelling, able to express a small amount of purulence with pressure., External ear exam unremarkable EYES: PERRL, EOMI NECK: Full ROM, no ALEX, no menigismus CHEST/RESP: Nontender, clear to auscultation bilateral, no wheeze/rhonchi/rales CARDIOVASCULAR: RRR, no murmur, rub maia. 2+ Rad pulse bilateral Neuro: Grossly normal neurologic exam, conversant, interactive. Psych: Speech fluent, thoughts congruent, affect normal Course Vital Signs Vital signs: Vital Signs Temperature 37 C 02/24/19 11:33 Pulse 75 02/24/19 11:33 Respiratory Rate 16 02/24/19 11:33 Blood Pressure 138/103 H 02/24/19 11:33 Pulse Oximetry 99 02/24/19 11:33 Temperature 37 C 02/24/19 11:33 Temperature Source Oral 02/24/19 11:33 Pulse 75 02/24/19 11:33 Respiratory Rate 16 02/24/19 11:33 Respiratory Effort Non-Labored 02/24/19 11:37 Blood Pressure 138/103 H 02/24/19 11:33 Blood Pressure Position Sitting 02/24/19 11:33 Pulse Oximetry 99 02/24/19 11:33 Oxygen Delivery Method Room Air 02/24/19 11:33 Oxygen Flow Rate 0 02/24/19 11:33 Pain Level 9 02/24/19 11:37 Procedures Nerve Block Nerve Block 1: Local Anesthetic: Bupivicaine 0.25% Side: left Intraoral Nerve Block: inferior alveolar Procedure Successful: Yes Patient Tolerated Procedure: well Complications: none
[2019-02-24] MEDS: Clindamycin 300 MG CAP PO (12:03)
[2019-02-24 12:09] VITALS: BP 130/70
== END 2019-02-24 12:07 | disposition home or self-care (01) ==
PROVIDERS: Emergency Provider Emergency Medicine; PCP Nurse Practitioner Family
DX: R22.0 Localized swelling, mass and lump, head (principal); K04.7 Periapical abscess without sinus; I10 Essential (primary) hypertension

== ENCOUNTER 2019-04-02 12:05 | Emergency (ER) | payer MEDICARE, SELFPAY ==
[2019-04-02] VITALS (73 sets, daily range): BP systolic 114–136; BP diastolic 71–91; PULSE 68–107; RESP 12–27; TEMP 36.6–37.2; O2SAT 95–100
--- NOTE | 2019-04-02 12:28 | ED.GENADUL_ITS ---
Discharge Plan Disposition Patient Disposition: HOME Condition: Improving Discharge Details Chief Complaint: AMS/LOC Clinical Impression: Acute stress reaction Primary Care Provider: Rosario Varela ED Provider: Memo Rodriguez Home Meds and New Rx's Prescriptions: Continued multivitamin tablet,chewable 1 tab PO DAILY RF: 0 metoprolol succinate 25 mg tablet extended release 24 hr 25 mg PO DAILY RF: 0 testosterone enanthate 200 mg/mL oil 200 mg IM Q2W RF: 0 sertraline [Zoloft] 25 mg tablet 150 mg PO DAILY RF: 0 levothyroxine 25 mcg tablet 25 mcg PO HS RF: 0 ibuprofen 600 mg tablet 600 mg PO Q6H PRN (Reason: pain) Qty: 20 RF: 0 topiramate 25 mg Tablet 25 mg PO BID RF: 0 rizatriptan 10 mg Tablet 10 mg PO PRN PRNRF: 0 gabapentin 100 mg Capsule 200 mg PO HS RF: 0 gabapentin 100 mg Capsule 100 mg PO QAM RF: 0 amitriptyline 25 MG tablet 25 mg PO HS RF: 0 gemfibrozil 600 MG tablet 600 mg PO BID RF: 0 Discharge Instructions Instructions: Anxiety (ED) Additional Instructions: Continue all regularly prescribed medications. Please follow-up with Karen Varela in clinic for routine checkup in the next 1 to 2 weeks time. Continue your efforts to decrease stress in your life. Return to the ER for any acute concern. Medical Decision Making 48-year-old male presents from home complaining of a great deal of increased stress in his life over days time due to his telling him she wishes to get . 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 He has been started on gabapentin. No other changes to medications. He arrives tremulous and anxious, his pulses slightly elevated. Likely anxiety reaction given the great deal of increased stress in his life. Must exclude dehydration, electrolyte abnormality and patient referred for laboratory testing. He is given 1 L fluid, 1 mg of Ativan. Labs reveal a white blood cell count of 7.6, hematocrit 46, platelets 369. Chemistries with BUN 20, unremarkable electrolytes, slight anion gap of 13. Patient improved with fluids and Ativan. I did obtain records from [facility] including recent EEG which did not show clear evidence of epileptiform activity. Clinic notes to note tremulous movements of the left hand and right foot which waxed and waned with retained consciousness. A diagnosis of psychogenic nonepileptic seizures was discussed with the patient and is noted that he was accepting of the diagnosis. Tegretol was discontinued, Topamax was restarted and gabapentin was administered for pain. Patient reassured. He is stable for discharge to home. He will continue his regular medications. [facility] General Mode of arrival: ambulatory . Date/Time Provider Initiated Documentation: 04/02/19 12:13 . Limitations to Documentation: no limitations . Information obtained by: patient . History of Present Illness 48 year old M presents to the emergency department with the chief complaint of Anxiety, stress, change to medications, shaking today, described as moderate, Quality is described as constant, Patient reports no radiation. Patient started experiencing this hour(s) and it has been constant. No relieving factors improve symptom(s), No exacerbating factors reported . Patient notes other (Anxiety, stress, states his is leaving him.). Related Data Home Medications Medication Instructions Recorded Confirmed amitriptyline 25 mg PO HS 04/10/16 04/02/19 gemfibrozil 600 mg PO BID 04/10/16 04/02/19 multivitamin 1 tab PO DAILY 12/11/17 04/02/19 ibuprofen 600 mg PO Q6H PRN #20 tab 10/13/18 04/02/19 levothyroxine 25 mcg tablet 25 mcg PO HS tab 01/27/19 04/02/19 metoprolol succinate 25 mg 25 mg PO DAILY 01/27/19 04/02/19 tablet,extended release 24 hr sertraline 25 mg tablet 150 mg PO DAILY tab-cap 01/27/19 04/02/19 testosterone enanthate 200 mg/mL 200 mg IM Q2W ml 01/27/19 04/02/19 intramuscular oil gabapentin 100 mg PO QAM 04/02/19 04/02/19 gabapentin 200 mg PO HS 04/02/19 04/02/19 rizatriptan 10 mg PO PRN PRN 04/02/19 04/02/19 topiramate 25 mg PO BID 04/02/19 04/02/19 Previous Rx's Medication Instructions Recorded ibuprofen 600 mg PO Q6H PRN #20 tab 10/13/18 Allergies Allergy/AdvReac Type Severity Reaction Status Date / Time Penicillins Allergy Severe Anaphylaxsi Verified 04/02/19 12:18 s vancomycin Allergy Severe Skin Rash Verified 04/02/19 12:18 latex Allergy Intermediate hives with Verified 04/02/19 12:18 latex powdered gloves General Stated Complaint: AMS/LOC GLO: 3 Review of Systems Narrative: No fever, no headache, no fall or injury. 6 systems reviewed and otherwise negative [facility] Social History Smoking/Tobacco Use Status: Never Alcohol Intake: never Drug use: Never Substance use type: does not use Current gender identity: male Do you feel safe at home: Yes Do you feel safe in your relationship?: Yes Exam Narrative Exam Narrative: GEN: awake, alert, oriented 3. Pleasant, well groomed, interactive. Tremulous HEAD: Normocephalic, atraumatic ENT: Mucous membranes moist, oropharynx unremarkable, External ear exam unremarkable EYES: PERRL, EOMI NECK: Full ROM, no ALEX, no menigismus CHEST/RESP: Nontender, clear to auscultation bilateral, no wheeze/rhonchi/rales CARDIOVASCULAR: RRR, no murmur, rub maia. 2+ Rad pulse bilateral ABDOMEN: Soft, nontender, no mass. +Bowel sounds EXT: Full ROM, no edema, no rash Neuro: Grossly normal neurologic exam, conversant, interactive. Cranial nerves II through XII intact. Psych: Speech fluent, thoughts congruent, affect anxious Course Vital Signs Vital signs: Vital Signs Temperature 36.6 C 04/02/19 12:14 Pulse 105 H 04/02/19 12:14 Respiratory Rate 16 04/02/19 12:14 Blood Pressure 132/80 04/02/19 12:14 Pulse Oximetry 97 04/02/19 12:14 Temperature 36.6 C 04/02/19 12:14 Temperature Source Temporal Artery Scan 04/02/19 12:14 Pulse 105 H 04/02/19 12:14 Respiratory Rate 16 04/02/19 12:14 Respiratory Effort 04/02/19 12:22 Blood Pressure 132/80 04/02/19 12:14 Blood Pressure Position Supine 04/02/19 12:14 Pulse Oximetry 97 04/02/19 12:14 Oxygen Delivery Method Room Air 04/02/19 12:14 Oxygen Flow Rate 0 04/02/19 12:14
[2019-04-02] MEDS: LORazepam 2 MG/ML VIAL 1 MG IVP (13:04)
[2019-04-02] MEDS: Normal Saline Flush 10 ML SYR IVP (13:05)
[2019-04-02] MEDS: Normal Saline 1,000 ML 1000 ML IV (13:05)
[2019-04-02 13:08] LABS: Abs Immature Grans 0.02 k/cumm (0.0-0.09); Absolute Basophil Count 0.05 k/cumm (0.0-0.2); Absolute Eosinophil Count 0.02 k/cumm (0.0-0.7); Absolute Lymphocyte Count 2.42 k/cumm (1.2-3.4); Absolute Monocyte Count 0.63 k/cumm (0.11-0.7); Absolute Neutrophil Count 4.47 k/cumm (1.2-6.7); Basophils % 0.7; Eosinophils % 0.3; HCT 46.9 % (40.0-50.0); HGB 15.8 g/dL (13.5-17.5); Immature Grans % 0.3 %; Lymphocytes % 31.8; Mean Corp. HGB Concentration 33.7 g/dL (32.0-36.0); Mean Platelet Volume 8.7 fL (8.0-11.0); Monocytes % 8.3; Neutrophils % 58.6; Platelet Count 369 x1000/uL (130-400); White Blood Cell Count 7.61 k/cumm (4.4-10.8)
[2019-04-02 13:38] LABS: ALT 79 U/L (16-63); AST 31 U/L (15-37); Alkaline Phosphatase 104 U/L (46-116); Anion Gap 13.9 mmol/L (3-11); BUN 20 mg/dL (7-18); Bilirubin, Total 0.5 mg/dL (0.2-1.0); CO2 21.1 mmol/L (21.0-32.0); CREATININE 1.15 mg/dL (0.70-1.30); Calcium 8.7 mg/dL (8.5-10.1); Chloride 105 mmol/L (98-107); Glucose 109 mg/dL (74-106); Magnesium 2.2 mg/dL (1.8-2.4); Potassium 3.5 mmol/L (3.5-5.1); Sodium 140 mmol/L (136-145)
== END 2019-04-02 15:17 | disposition home or self-care (01) ==
PROVIDERS: Emergency Provider Emergency Medicine; PCP Nurse Practitioner Family
DX: F43.8 Other reactions to severe stress (principal); R25.1 Tremor, unspecified
CPT/HCPCS: 36415; 80053; 96361; 96374; 99284; 83735; 85025; J2060

== ENCOUNTER 2019-05-07 14:11 | Emergency (ER) | payer MEDICARE, SELFPAY ==
[2019-05-07 14:15] VITALS: BP 125/76; PULSE 84; RESP 18; TEMP 36; O2SAT 99
--- NOTE | 2019-05-07 14:23 | W.ED.GENAD ---
Discharge Plan Disposition Patient Disposition: HOME Condition: Good Discharge Details Chief Complaint: Laceration Clinical Impression: Abrasion Primary Care Provider: Rosario Varela ED Provider: Guerita Zarate Home Meds and New Rx's Prescriptions: Continued multivitamin tablet,chewable 1 tab PO DAILY RF: 0 metoprolol succinate 25 mg tablet extended release 24 hr 25 mg PO DAILY RF: 0 testosterone enanthate 200 mg/mL oil 200 mg IM Q2W RF: 0 sertraline [Zoloft] 25 mg tablet 150 mg PO DAILY RF: 0 levothyroxine 25 mcg tablet 25 mcg PO HS RF: 0 ibuprofen 600 mg tablet 600 mg PO Q6H PRN (Reason: pain) Qty: 20 RF: 0 topiramate 25 mg Tablet 25 mg PO BID RF: 0 rizatriptan 10 mg Tablet 10 mg PO PRN PRNRF: 0 gabapentin 100 mg Capsule 200 mg PO HS RF: 0 gabapentin 100 mg Capsule 100 mg PO QAM RF: 0 amitriptyline 25 MG tablet 25 mg PO HS RF: 0 gemfibrozil 600 MG tablet 600 mg PO BID RF: 0 Discharge Instructions Instructions: Abrasion (ED) Additional Instructions: Keep wound clean, dry, covered. Monitor for signs infection including redness, warmth, drainage, increased pain, fever/chills. If you develop these or the new/worsening symptom please seek care urgently once again. Otherwise, please follow-up with your primary care as needed. Stand Alone Forms: Work Release Referrals: Rosario Varela [Primary Care Provider] - Discharge Data Discharge Date/Time-TO BE ENTERED AT DEPARTURE: 05/07/19 14:40 Medical Decision Making Patient is a 48-year-old male, well-known to myself, presenting today with chief complaint of laceration to the lateral aspect of the right eye. He reports that prior to arrival he was at work when he walked into the [employer] mirror. Did not lose consciousness, did not fall. States that he does have a mild headache over this area. Denies any visual changes. States that initially he was briefly dizzy but this resolved without intervention. He is currently asymptomatic aside from discomfort over the abrasion itself. He was concerned that he may need stitches. On exam, patient does have a very superficial 5 mm abrasion lateral to the right eyebrow. No active bleeding. Wound was cleansed and dressed by nursing staff. As he was endorsing a mild headache, I did a thorough neuro exam with no abnormalities noted. 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 We discussed wound care in depth. He was given return precautions. I not feel that any intervention is necessary on this superficial abrasion should heal well without any closure options. Wound was dressed with a Band-Aid. All of his questions and concerns were addressed and he is in agreement with this plan. HPI General Mode of arrival: ambulatory. Date/Time Provider Initiated Documentation: 05/07/19 14:23. Limitations to Documentation: no limitations. Information obtained by: patient and RN notes reviewed. History of Present Illness 48 year old M presents to the emergency department with the chief complaint of Laceration lateral right eyebrow, described as moderate, with intensity rated at 6. Quality is described as aching, and is localized to the face. Patient reports no radiation. Patient started experiencing this minute(s) and it has been constant. No relieving factors improve symptom(s), No exacerbating factors reported . Patient notes no other symptoms.. Patient did receive the following treatments prior to arrival, none Related Data Home Medications Medication Instructions Recorded Confirmed amitriptyline 25 mg PO HS 04/10/16 05/07/19 gemfibrozil 600 mg PO BID 04/10/16 05/07/19 multivitamin 1 tab PO DAILY 12/11/17 05/07/19 ibuprofen 600 mg PO Q6H PRN #20 tab 10/13/18 05/07/19 levothyroxine 25 mcg tablet 25 mcg PO HS tab 01/27/19 05/07/19 metoprolol succinate 25 mg 25 mg PO DAILY 01/27/19 05/07/19 tablet,extended release 24 hr sertraline 25 mg tablet 150 mg PO DAILY tab-cap 01/27/19 05/07/19 testosterone enanthate 200 mg/mL 200 mg IM Q2W ml 01/27/19 05/07/19 intramuscular oil gabapentin 100 mg PO QAM 04/02/19 05/07/19 gabapentin 200 mg PO HS 04/02/19 05/07/19 rizatriptan 10 mg PO PRN PRN 04/02/19 05/07/19 topiramate 25 mg PO BID 04/02/19 05/07/19 Previous Rx's Medication Instructions Recorded ibuprofen 600 mg PO Q6H PRN #20 tab 10/13/18 Allergies Allergy/AdvReac Type Severity Reaction Status Date / Time Penicillins Allergy Severe Anaphylaxsi Verified 05/07/19 14:20 s vancomycin Allergy Severe Skin Rash Verified 05/07/19 14:20 latex Allergy Intermediate hives with Verified 05/07/19 14:20 latex powdered gloves General Stated Complaint: Laceration GLO: 4 Review of Systems Constitutional Constitutional: Reports as per HPI, Denies chills, Denies fatigue, Denies fever(s), Denies frequent falls, Reports headache(s) (focal, near the abrasion) and Denies weakness Eyes Eyes: Reports as per HPI, Denies blurry vision, Denies change in vision and Reports photophobia ENT Ears, Nose, Mouth, and Throat: Denies vertigo, Reports headache(s) (focal, near the abrasion) and Denies neck pain Cardiovascular Cardiovascular: Reports as per HPI, Denies chest pain, Denies lightheadedness, Denies radiating jaw, neck or arm pain, Denies dyspnea and Denies dyspnea on exertion Respiratory Respiratory: Reports as per HPI, Denies chest congestion, Denies cough, Denies dyspnea, Denies dyspnea on exertion, Denies stridor and Denies wheezing Gastrointestinal Gastrointestinal: Reports as per HPI, Denies abdominal pain, Denies change in bowel habits, Denies nausea and Denies vomiting Genitourinary Genitourinary: Reports system reviewed and no additional complaints, except as documented (denies change in urinary habits) Musculoskeletal Musculoskeletal: Reports as per HPI, Denies back pain, Denies myalgias, Denies muscle cramps, Denies neck pain and Denies numbness Integumentary/Breasts Skin/Breast: Reports as per HPI (abrasion) Neurologic Neurologic: Reports as per HPI, Denies abnormal movements, Denies abnormal speech, Denies behavioral changes, Denies confusion, Denies vertigo, Denies frequent falls, Reports headache(s) (focal, near the abrasion), Denies localized weakness, Denies numbness, Denies sensory deficit and Denies weakness Psychiatric Psychiatric: Denies behavioral changes and Denies confusion Endocrine Endocrine: Denies fatigue Allergic/Immunologic Allergic/Immunologic: Denies wheezing [facility] Social History Smoking/Tobacco Use Status: Never Alcohol Intake: never Drug use: Never Substance use type: does not use Current gender identity: male Do you feel safe at home: Yes Do you feel safe in your relationship?: Yes Exam Const General: cooperative, healthy appearing, uncomfortable, no acute distress, well developed and well groomed Nutritional Appearance: average body habitus and well nourished Orientation: alert, awake and oriented x3 [facility] Head: normal to inspection, no palpable skull fracture, normocephalic, signs of trauma (small, superficial abrasion as drawn below), no Roach's sign, no contusions, no hematomas, no occipital foramen tenderness, no palpable skull fracture, no raccoon eyes and no scalp tenderness Head images: 1. area of abrasion approximately 5mm, no active bleeding. No swelling. 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 ) Periorbital: periorbital findings normal Eyelids: eyelids normal Sclera: sclerae normal Cornea: corneas normal Pupils: PERRL EOM: EOM intact bilaterally Neck Neck: normal visual inspection, full ROM, no lymphadenopathy and no meningeal signs Resp Effort & Inspection: normal respiratory effort, able to speak in complete sentences and no respiratory distress Auscultation: clear to auscultation bilaterally, no rales, no rhonchi and no wheezes Cardio Rate: regular rate Rhythm: regular rhythm Heart Sounds: S1 normal and S2 normal GI Inspection: normal to inspection and non-distended Palpation: soft, no hepatosplenomegaly, not firm, no guarding, not rigid and nontender Percussion: normal to percussion Auscultation: normal bowel sounds Back/Spine/Pelvis Cervical Spine: normal cervical lordosis and cervical ROM normal Skin General skin exam: no rashes or lesions noted Neuro General: patient alert, patient awake and patient oriented x3 Cranial Nerves: CN's II-XI intact bilaterally Cognition: normal cognition Speech: speech normal Gait: normal gait Motor: muscle tone normal throughout, strength 5/5 throughout, no pronator drift, no movement abnormalities noted and no fasciculations Sensory Exam: no sensory deficits noted Coordination: [id number] test normal, [id number] test normal, Romberg test normal, tandem gait normal, Does not sway with eyes open and rapid alternating movement UE normal Extrem General: normal to inspection, capillary refill normal, no pedal edema and no calf tenderness Psych Appearance: grossly normal and well kempt Mental Status: mental status grossly normal Speech and Movement: speech and movement normal Course Vital Signs Vital signs: Vital Signs Temperature 36.0 C L 05/07/19 14:15 Pulse 84 05/07/19 14:15 Respiratory Rate 18 05/07/19 14:15 Blood Pressure 125/76 05/07/19 14:15 Pulse Oximetry 99 05/07/19 14:15 Temperature 36.0 C L 05/07/19 14:15 Temperature Source Skin 05/07/19 14:15 Pulse 84 05/07/19 14:15 Respiratory Rate 18 05/07/19 14:15 Respiratory Effort Non-Labored 05/07/19 14:19 Blood Pressure 125/76 05/07/19 14:15 Blood Pressure Position Sitting 05/07/19 14:15 Pulse Oximetry 99 05/07/19 14:15 Oxygen Delivery Method Room Air 05/07/19 14:15 Oxygen Flow Rate 0 05/07/19 14:15 Pain Level 6 05/07/19 14:15
== END 2019-05-07 14:40 | disposition home or self-care (01) ==
PROVIDERS: Emergency Provider Physician Assistant; PCP Nurse Practitioner Family
DX: S00.211A Abrasion of right eyelid and periocular area, initial encounter (principal); W25.XXXA Contact with sharp glass, initial encounter; R51 Headache
CPT/HCPCS: 99282

== ENCOUNTER → 2019-06-09 13:10 | Outpatient (BNVA) | payer MEDICARE, MEDICAID, SELFPAY | PROVIDERS: PCP Nurse Practitioner Family; Referring Provider Nurse Practitioner Family; Visit Provider Nurse Practitioner Gerontology | DX: E29.1 Testicular hypofunction (principal) | CPT/HCPCS: 99213; 99442 ==

== ENCOUNTER 2019-06-20 00:49 | Outpatient (CLI) | payer MEDICARE, MEDICAID, SELFPAY ==
[2019-06-20 16:17] LABS: Abs Immature Grans 0.01 k/cumm (0.0-0.09); Absolute Basophil Count 0.03 k/cumm (0.0-0.2); Absolute Eosinophil Count 0.08 k/cumm (0.0-0.7); Absolute Lymphocyte Count 2.43 k/cumm (1.2-3.4); Absolute Monocyte Count 0.51 k/cumm (0.11-0.7); Absolute Neutrophil Count 4.63 k/cumm (1.2-6.7); Basophils % 0.4; HCT 44.7 % (40.0-50.0); HGB 15.4 g/dL (13.5-17.5); Immature Grans % 0.1 %; Lymphocytes % 31.6; Mean Corp. HGB Concentration 34.5 g/dL (32.0-36.0); Mean Corpuscular Hemoglobin 31.3 pg (27.0-33.0); Mean Corpuscular Volume 90.9 fL (80-95); Mean Platelet Volume 9.3 fL (8.0-11.0); Monocytes % 6.6; Neutrophils % 60.3; Platelet Count 329 x1000/uL (130-400); RBC 4.92 m/cumm (4.50-6.00); RBC Distribution Width 12.7 % (11.8-14.1); White Blood Cell Count 7.69 k/cumm (4.4-10.8)
[2019-06-20 17:27] LABS: Anion Gap 11.5 mmol/L (3-11); BUN 19 mg/dL (7-18); CO2 25.5 mmol/L (21.0-32.0); CREATININE 1.34 mg/dL (0.70-1.30); Calcium 9.2 mg/dL (8.5-10.1); Chloride 104 mmol/L (98-107); Estimated GFR 57.39 (mL/min/1.73m2); Glucose 112 mg/dL (74-106); Potassium 3.9 mmol/L (3.5-5.1); Sodium 141 mmol/L (136-145); TSH (W/Ref FT4) 1.17 uIU/mL (0.36-3.74); Vitamin B12 384 pg/mL (193-986)
[2019-06-23 07:56] LABS: Testosterone, Total 1060 ng/dL (240-950)
== END 2019-06-20 01:09 ==
PROVIDERS: Nurse Practitioner Gerontology; PCP Nurse Practitioner Family; Visit Provider Nurse Practitioner Family
DX: I10 Essential (primary) hypertension (principal); E78.5 Hyperlipidemia, unspecified; F32.9 Major depressive disorder, single episode, unspecified; R53.83 Other fatigue; R07.9 Chest pain, unspecified; R20.2 Paresthesia of skin; K30 Functional dyspepsia; R31.21 Asymptomatic microscopic hematuria
CPT/HCPCS: 36415; 80048; 84403; 82607; 84443; 85025

== ENCOUNTER → 2019-07-12 08:35 | Outpatient (BNVA) | payer MEDICARE, MEDICAID, SELFPAY | PROVIDERS: PCP Nurse Practitioner Family; Referring Provider Nurse Practitioner Family; Visit Provider Psychiatry & Neurology Neurology | DX: G56.01 Carpal tunnel syndrome, right upper limb (principal); G56.02 Carpal tunnel syndrome, left upper limb; R73.9 Hyperglycemia, unspecified; G62.9 Polyneuropathy, unspecified; G56.21 Lesion of ulnar nerve, right upper limb; G43.109 Migraine with aura, not intractable, without status migrainosus | CPT/HCPCS: 95910; 95913; 99205; 99215; L3908 ==

== ENCOUNTER → 2019-08-04 09:36 | Outpatient (BNVA) | payer MEDICARE, MEDICAID, SELFPAY | PROVIDERS: PCP Nurse Practitioner Family; Referring Provider Psychiatry & Neurology Neurology; Visit Provider Student in an Organized Health Care Education/Training Program | DX: G56.21 Lesion of ulnar nerve, right upper limb (principal); G56.03 Carpal tunnel syndrome, bilateral upper limbs; G62.9 Polyneuropathy, unspecified; M77.11 Lateral epicondylitis, right elbow; I10 Essential (primary) hypertension; Z98.890 Other specified postprocedural states | CPT/HCPCS: 99213 ==

== ENCOUNTER 2019-09-06 04:28 | Outpatient (CLI) | payer MEDICARE, SELFPAY ==
[2019-09-06 09:28] LABS: Hemoglobin A1C 5.2 % (3.8-5.6)
[2019-09-07 13:01] LABS: Albumin 59.7 % (55.8-66.1); Total Protein 7.3 g/dL (6.3-8.2)
[2019-09-09 22:46] LABS: Testosterone, Total 357 ng/dL (240-950)
== END 2019-09-06 04:48 ==
PROVIDERS: Nurse Practitioner Gerontology; Psychiatry & Neurology Neurology; PCP Nurse Practitioner Family; Visit Provider Urology
DX: E29.1 Testicular hypofunction (principal); G62.9 Polyneuropathy, unspecified; R73.9 Hyperglycemia, unspecified
CPT/HCPCS: 36415; 84403; 83036; 84165

== ENCOUNTER → 2019-09-08 08:11 | Outpatient (BNVA) | payer MEDICARE, MEDICAID, SELFPAY | PROVIDERS: PCP Nurse Practitioner Family; Referring Provider Nurse Practitioner Family; Visit Provider Nurse Practitioner Gerontology | DX: E29.1 Testicular hypofunction (principal); F52.4 Premature ejaculation | CPT/HCPCS: 99213 ==

== ENCOUNTER → 2019-09-08 08:51 | Outpatient (BNVA) | payer MEDICARE, SELFPAY | PROVIDERS: PCP Nurse Practitioner Family; Visit Provider Student in an Organized Health Care Education/Training Program | DX: M77.11 Lateral epicondylitis, right elbow (principal); G56.21 Lesion of ulnar nerve, right upper limb; G56.03 Carpal tunnel syndrome, bilateral upper limbs; I10 Essential (primary) hypertension | CPT/HCPCS: 99213 ==

== ENCOUNTER → 2019-09-13 11:31 | Outpatient (BNVA) | payer MEDICARE, MEDICAID, SELFPAY | PROVIDERS: PCP Nurse Practitioner Family; Referring Provider Nurse Practitioner Family; Visit Provider Psychiatry & Neurology Neurology | DX: G62.9 Polyneuropathy, unspecified (principal); G56.03 Carpal tunnel syndrome, bilateral upper limbs; G56.21 Lesion of ulnar nerve, right upper limb; G43.109 Migraine with aura, not intractable, without status migrainosus | CPT/HCPCS: 99213 ==

== ENCOUNTER 2019-09-30 08:17 | Outpatient (CLI) | payer MEDICARE, MEDICAID, SELFPAY ==
[2019-10-01 18:07] LABS: COVID-19 RT-PCR Result NEGATIVE (Negative)
== END 2019-09-30 08:37 ==
PROVIDERS: PCP Nurse Practitioner Family; Visit Provider Student in an Organized Health Care Education/Training Program
DX: Z01.818 Encounter for other preprocedural examination (principal); G56.21 Lesion of ulnar nerve, right upper limb; M77.11 Lateral epicondylitis, right elbow; G56.01 Carpal tunnel syndrome, right upper limb
CPT/HCPCS: U0003

== ENCOUNTER 2019-10-04 10:22 | Day surgery (SDC) | payer MEDICARE, MEDICAID, SELFPAY ==
[2019-10-04 10:51] VITALS: BP 128/85; PULSE 89; RESP 18; TEMP 36.2; O2SAT 98
--- NOTE | 2019-10-04 13:46 | NUR.NOTE ---
1154: Pt. reported working at [email or web address] after Covid testing on 09/30/2019, Dr. Andino in to discuss quarantining with pt. Pt. stated he stayed at home except for working, which he reports he wore a mask during. informed pt. due to policies regarding procedures and quarantining, his procedure would need to be postponed to next week and that he would need to be re-tested for Covid and quarantine until his procedure. explained to pt. that quarantining means he needs to stay home and be around only current members of his home. Pt. agreeable. Nursing Note:
== END 2019-10-04 11:54 ==
PROVIDERS: PCP Nurse Practitioner Family; Visit Provider Student in an Organized Health Care Education/Training Program
DX: R69 Illness, unspecified (principal)

== ENCOUNTER 2019-10-07 07:56 | Outpatient (CLI) | payer MEDICARE, MEDICAID, SELFPAY ==
[2019-10-08 17:29] LABS: COVID-19 RT-PCR Result NEGATIVE (Negative)
== END 2019-10-07 08:16 ==
PROVIDERS: PCP Nurse Practitioner Family; Visit Provider Student in an Organized Health Care Education/Training Program
DX: Z11.59 Encounter for screening for other viral diseases (principal); Z01.818 Encounter for other preprocedural examination
CPT/HCPCS: U0003

== ENCOUNTER 2019-10-11 12:14 | Day surgery (SDC) | payer MEDICARE, MEDICAID, SELFPAY ==
[2019-10-11] VITALS (9 sets, daily range): BP systolic 93–131; BP diastolic 49–95; PULSE 72–96; RESP 15–18; TEMP 36.1–36.6; O2SAT 94–99
[2019-10-11] MEDS: Lactated Ringers 1,000 ML 80 ML IV (12:44)
--- NOTE | 2019-10-11 14:04 | W.PM.DSUDISC ---
Discharge Plan Disposition Patient Disposition: HOME Condition: Good Discharge Details Reason For Visit: Right Carpal Tunnel, Cubital Tunnel, Lateral Epico Attending Provider: Ray Andino Primary Care Provider: Rosario Varela Home Meds and New Rx's Prescriptions: New acetaminophen 500 mg tablet 500 mg PO Q6H PRN PRN (Reason: pain) Qty: 60 RF: 3 oxycodone 5 mg tablet 5 mg PO Q6H PRN PRNQty: 12 RF: 0 Continued multivitamin tablet,chewable 1 tab PO DAILY RF: 0 metoprolol succinate 25 mg tablet extended release 24 hr 25 mg PO DAILY RF: 0 amitriptyline 100 mg tablet 100 mg PO QHS Qty: 30 RF: 5 sertraline [Zoloft] 25 mg tablet 150 mg PO DAILY RF: 0 testosterone cypionate 200 mg/mL oil 200 mg IM Q2W Qty: 5 RF: 0 levothyroxine 25 mcg tablet 25 mcg PO HS RF: 0 topiramate 25 mg Tablet 25 mg PO BID RF: 0 rizatriptan 10 mg Tablet 10 mg PO PRN PRNRF: 0 gabapentin 300 mg Capsule 300 mg PO DAILY RF: 0 gemfibrozil 600 MG tablet 600 mg PO BID RF: 0 Changed ibuprofen 600 mg tablet 600 mg PO Q8H PRN PRN (Reason: pain) Qty: 60 RF: 0 Discontinued meloxicam 15 mg tablet 15 mg PO DAILY Qty: 30 RF: 1 Discharge Instructions Additional Instructions: Activity: You should stay in the sling for the first 2 weeks. You may come out of the sling for gentle motion and hygiene but should largely remain in the sling to allow the incision site to heal. The splint on the wrist may be removed as desired but use it as needed for comfort and to support finger motion and flexion. Gentle motion of the elbow, hand, wrist, and fingers is okay and encouraged after the first few days, but no repetitive activites nor heavy lifting. You may apply ice. Medications: - You should take Tylenol and Ibuprofen around the clock. - You have been prescribed Oxycodone for breakthrough pain. Dressings: - The initial surgical dressing should stay in place for 3 days. It may then be removed and kept clean and dry. You should cover with a light gauze dressing to all 3 sites. - You may shower after 3 days and get the wound wet. - If desired, you can just keep the wounds covered until your follow-up. Follow-up: 10 days Equipment/Supplies: Sling Activity:: Elevate Remove Dressings/Wound Care:: 72 hours Shower/Bathe:: 72 hours Diet:: As Tolerated Discharge Orders Discharge Orders: Discharge Order (Routine); Ordered 10/11/19 Ordered By: Ray Andino DS: Diagnosis Discharge Diagnosis (1) Lateral epicondylitis of right elbow: Status: Resolved (2) Carpal tunnel syndrome on both sides: Status: Acute (3) Ulnar neuropathy of right upper extremity: Status: Acute
[2019-10-11] MEDS: Sodium Bicarbonate 50 MEQ/50 ML VIAL (15:17)
--- NOTE | 2019-10-12 14:55 | W.PM.OP ---
Date of service: 10/11/19 Time of Service: 15:40 Operative Note Operative Note DATE OF PROCEDURE: 10/11/19 PRE-OP DIAGNOSIS: Right cubital Tunnel Syndrome, right carpal tunnel syndrome, right lateral epicondylitis POST-OP DIAGNOSIS: same PROCEDURE: Right cubital Tunnel Decompression with Anterior Subcutaneous Transposition, right open revision carpal tunnel release, right lateral elbow debridement SURGEON: Ray Andino DATA ENTRY PROCESSOR: Irvin Gilmore ANESTHESIA: GETA ESTIMATED BLOOD LOSS: 5 PATHOLOGY: none sent TOURNIQUET TIME: 63 COMPLICATIONS: None Patient was transported to: PACU Patient's condition: stable Indications: Chapin is a 48-year-old male who has had symptoms of cubital tunnel syndrome, recurrent carpal tunnel syndrome, and lateral condylitis. Nonoperative treatment options had been trialed. Nerve conduction studies identified the cubital tunnel and carpal tunnel as the points of compression. Given failure of nonoperative treatments and persistent symptoms, I offered operative intervention. I reviewed the technical details of a cubital tunnel decompression with possible anterior subcutaneous transposition as well as the details of carpal tunnel release, performed open and revision nature, and lateral elbow debridement. I reviewed the risk of the procedure to include bleeding, infection, pain, stiffness, tendon instability, damage to the superficial radial nerve, and complete release. Despite these risks, the patient elected to proceed. Findings: There was a tightened cubital tunnel. There are missing to be some hypertrophy of the flexor carpi ulnaris muscles which impinged upon the ulnar nerve. The ulnar nerve was release from the first motor branch distally through the [place] proximally. The ulnar nerve was not stable after decompression and therefore an anterior subcutaneous transposition was performed. The lateral condyle was debrided and degenerative tissue was removed with a knife blade, Nirschl technique. An open carpal tunnel release was performed along with a median nerve neurolysis showing recurrent compression of the median nerve but without nerve injury or defect. Procedure Description: Chapin was greeted in the preoperative holding area. Name and surgical site were confirmed. The history and physical was completed. The consent was reviewed the patient and signed. He was taken back to the operating room. The patient was placed in the supine positioned and a general anesthetic was administered. The right was then prepped with ChloraPrep and draped in a standard fashion after a nonsterile tourniquet was placed high up into the axilla of the arm. Prophylactic antibiotics in the form of cefazolin were administered. A timeout was performed for safe surgery. The lateral epicondyle debridement was performed first. The surgical site, a linear incision extending from the epicondyle over the extensor carpi radialis brevis, was drawn on the skin as was the lateral epicondyle borders. The planned surgical field was anesthetized with 0.25% bupivacaine with epinephrine. The limb was exsanguinated and the tourniquet was inflated where it stayed for 63 minutes. A 5 cm incision was made. This was taken at the skin only. Deep dissection was carried out to identify the fascia of the extensor musculature. The border between the muscle belly and fascia of the extensor tendon was identified. This was incised and the fascia of the extensor carpi radialis longus. These fibers were opened onto the epicondyle make sure to stay dorsal to the center rotation of the capitellum. These fibers were elevated and the degenerative tissue was seen at the origin of the extensor carpi radialis brevis. Using the 15 blade this degenerative tissue was identified and removed using the Nirschl technique. After this had removed all appropriate tissue, I then used a rongeur to decorticate the lateral condyle as well as debride the tissue in this area. There is no capsular defect. The wound was then irrigated. The deep tissues were injected with 0.25% bupivacaine with epinephrine. I then closed the tendon fibers of the extensor carpi radialis longus using a #2-0 Vicryl. The skin was closed with 3-0 Vicryl followed by 4-0 nylon. Patient was then turned to the medial epicondyle and the cubital tunnel procedure. A 8 cm incision was made curvilinearly around the medial elbow. The skin was incised only. The deep tissue and subcutaneous fat was dissected with a tenotomy scissors trying to protect any branches of the medial antebrachial cutaneous nerve. Any branches that were identified were retracted out of the way. The sheath overlying the ulnar nerve was opened. Using a [place] to protect the nerve, I opened the sheath using a Metzenbaum scissor. This was easily able to do extending proximally all the way to the arcade of [place]. A portion of the medial intermuscular septum was also released. There is notable tightness of the nerve at the level of the cubital tunnel and Dominguez's ligament. However, there was seen to be some hypertrophy within the flexor carpi ulnaris muscles. I release his fascia quite a ways distally, proximally 8 cm. However, the muscle bellies himself seem to impinge upon the nerve. The first branch of the ulnar nerve to the flexor carpi ulnaris was identified and dissected out to allow some mobility of the nerve within the muscles. After fully releasing the nerve it was inspected visually. I was also able to palpate the nerve fully and reach one finger up into the proximal and distal aspects to make sure there were no constraints against the nerve. A freer elevator was also used to slide easily against the ulnar nerve without any points of constriction. The arm was then taken through range of motion. The ulnar nerve did sublux/dislocate out of its groove behind the lateral epicondyle. Therefore, I did perform an anterior subcutaneous transposition. A flap of the fascia from the flexor pronator mass was elevated based off of the medial condyle. The nerve was moved anteriorly after was fully dissected from surrounding attachments try to keep vasculature with it. I also made sure to still protect the branches of the antebrachial cutaneous nerve as well as the branch of the flexor carpi ulnaris. Once this was moved anteriorly the flap was sewed down to the overlying dermis. Two #2-0 sutures were placed in this area. This kept the nerve from falling back posteriorly. There is no pressure compression on the nerve. The wound was then thoroughly irrigated. The deep tissue was closed with a #3-0 Vicryl. The skin was closed #4-0 nylon. Attention was then turned to the carpal tunnel release. A revision release was performed using a extensile open approach. This was taken longitudinally through the base of the palm in a Frida approach across the wrist flexion creases. Skin was incised sharply. Careful attention was paid to any branching cutaneous nerves. Starting at the level of the wrist the antebrachial fascia was identified and incised. I was then able to place a freer underneath this tissue and cut down directly onto using a [place] blade. The nerve was easily identified and was referenced and ligament was cut which was palmar to this. This was continued distally until there is no remaining transverse carpal ligament. The nerve was fully inspected. There was some dense tissue seen around the nerve itself and a neuro lysis was performed to free the nerve from any attachments or adhesions. Working proximally, I dissected off the antebrachial fascia and released this separately. The wound was then thoroughly irrigated. The wounds were dressed with Xeroform, 4 x 4's, Kerlix and an Perez wrap. Chapin was placed into a sling as well as a commercial brace for the right wrist. Chapin was transferred back to the PACU in a stable condition.
== END 2019-10-11 17:30 | disposition home or self-care (01) ==
PROVIDERS: PCP Nurse Practitioner Family; Visit Provider Student in an Organized Health Care Education/Training Program
PROC: (CPT 24101; principal; 2019-10-11 14:45)
PROC: (CPT 24358; 2019-10-11 14:45)
PROC: (CPT 64721; 2019-10-11 14:45)
DX: G56.01 Carpal tunnel syndrome, right upper limb (principal); G56.21 Lesion of ulnar nerve, right upper limb; M77.11 Lateral epicondylitis, right elbow
CPT/HCPCS: 24358; 64718; 29848; J0690; J1100; J1885; J2405; J2704; L3650; L3908

== ENCOUNTER 2019-10-26 19:27 | Inpatient (IN) | payer MEDICARE, MEDICAID, SELFPAY ==
[2019-10-26 19:33] VITALS: BP 153/115; PULSE 102; RESP 20; TEMP 36.7; O2SAT 99
--- NOTE | 2019-10-26 20:02 | ED.GENADUL_ITS ---
Discharge Plan Disposition Patient Disposition: [facility] INPATIENT Condition: Stable Discharge Details Clinical Impression: Depression Admit Date/Time: 10/27/19 15:37 Admit Provider: Flora Adams Attending Provider: Flora Adams Primary Care Provider: Rosario Varela ED Provider: Andrew Grant Discharge Data Discharge Date/Time-TO BE ENTERED AT DEPARTURE: 10/27/19 16:11 Medical Decision Making <David Yadav MD - Last Filed: 11/19/19 13:39> 1997??48-year-old male with prior history of depression, here with severe depression and suicidality. Patient is here voluntarily seeking treatment. May rojo has significant life stressors recently including relationship turmoil. Plan to maintain one-to-one observation. Care management contacted for care plan. [facility] crisis screener contacted to assess patient. I will check screening labs including COVID-19 although I have no specific medical concerns. 2199 --patient was given Ativan 0.5 mg p.o. for anxiety. Patient was reassessed and anxiety seems to improved a little bit. [facility] crisis screener evaluated the patient agrees with need for inpatient psychiatric admission. She is looking into bed availability. Care will be signed out to Dr. Diaz for determination of further disposition. <Leighton Diaz MD - Last Filed: 10/27/19 00:38> pt calm and cooperative, no focal deficits and clear speech and normal gait. Awaiting psychiatric bed placement and is voluntary at this time for SI <Andrew Grant DO - Last Filed: 10/27/19 15:17> Patient was signed out to me by my colleague Dr. Leighton Diaz. Please refer to his and Dr. Yadav's HPI assessment and plan. At time of signout we are pending placement for the patient. His COVID test has come back normal. Patient remains hemodynamically stable here on reassessment. He shows a continued interest in voluntary admission. He did have a mild headache for which was given Tylenol for. This did resolve his symptoms. On reassessment by mental health there is currently no beds available and will not be available until at least tomorrow. Because of this I did contact the hospitalist and discussed the case with Dr. Adams, she agrees with the assessment and plan. I have extensively reviewed the treatment plan with the patient. I have addressed all patient concerns at this time. I have also discussed the plan with the admitting physician and they agree with the current assessment and plan and have agreed to assume responsibility for the patient. All parties demonstrate verbal understanding and agreement with our assessment and plan at this time. HPI <David Yadav MD - Last Filed: 11/19/19 13:39> General Mode of arrival: ambulatory . Date/Time Provider Initiated Documentation: 10/26/19 19:32 . Limitations to Documentation: no limitations . Information obtained by: patient . HPI Narrative: 48-year-old male with prior history of hydrocephalus, status post multiple surgeries and shunt, cognitive developmental delay, depression, here today with worsening depression and suicidality. Symptoms are severe. Patient notes over the past 3 days he felt suicidal with thoughts of slitting his wrist. He notes he is under significant stress related to relationship turmoil. He states he is going through a difficult break-up with his . Patient denies toxic ingestion. He is here voluntarily today seeking care. Related Data Home Medications Medication Instructions Recorded Confirmed gemfibrozil 600 mg PO BID 04/10/16 10/26/19 multivitamin 1 tab PO DAILY 12/11/17 10/26/19 levothyroxine 25 mcg tablet 25 mcg PO HS tab 01/27/19 10/26/19 metoprolol succinate 25 mg 25 mg PO DAILY 01/27/19 10/26/19 tablet,extended release 24 hr sertraline 25 mg tablet 150 mg PO DAILY tab-cap 01/27/19 10/26/19 rizatriptan 10 mg PO PRN PRN 04/02/19 10/26/19 topiramate 25 mg PO BID 04/02/19 10/26/19 testosterone cypionate 200 mg/mL 200 mg IM Q2W #5 ml 09/12/19 10/26/19 intramuscular oil gabapentin 300 mg PO DAILY 10/07/19 10/26/19 acetaminophen 500 mg PO Q6H PRN PRN #60 tab 10/11/19 10/26/19 ibuprofen 600 mg PO Q8H PRN PRN #60 tab 10/11/19 10/26/19 amitriptyline 25 mg PO QHS 10/26/19 Previous Rx's Medication Instructions Recorded testosterone cypionate 200 mg/mL 200 mg IM Q2W #5 ml 09/12/19 intramuscular oil acetaminophen 500 mg PO Q6H PRN PRN #60 tab 10/11/19 ibuprofen 600 mg PO Q8H PRN PRN #60 tab 10/11/19 Allergies Allergy/AdvReac Type Severity Reaction Status Date / Time Penicillins Allergy Severe Anaphylaxsi Verified 10/26/19 19:41 s vancomycin Allergy Severe Skin Rash Verified 10/26/19 19:41 latex Allergy Intermediate hives with Verified 10/26/19 19:41 latex powdered gloves General Stated Complaint: PsychEval GLO: 2 Review of Systems <David Yadav MD - Last Filed: 11/19/19 13:39> All systems reviewed & are unremarkable except as noted in HPI and below Constitutional Constitutional: Denies fever(s) and Denies headache(s) ENT Ears, Nose, Mouth, and Throat: Denies headache(s) Cardiovascular Cardiovascular: Denies dyspnea Respiratory Respiratory: Denies cough and Denies dyspnea Neurologic Neurologic: Denies headache(s) Psychiatric Psychiatric: Reports as per HPI PFSH <David Yadav MD - Last Filed: 11/19/19 13:39> Medical History Asymptomatic microscopic hematuria Chronic headaches Cognitive developmental delay CRI (chronic renal insufficiency) Depression Dyspepsia 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 is patent Hypogonadism Hypothyroid Neck pain Pseudoseizures Sleep apnea central per report; not compliant with CPAP/biPAP Tubular adenoma of colon Surgical History Hx of colonoscopy Intracranial shunt with several revisions Per pt. is patent S/P carpal tunnel release right S/P cholecystectomy Social History Smoking/Tobacco Use Status: Never Alcohol Intake: never Drug use: Never Substance use type: does not use Household members: spouse and children Number of Children: 3 current occupation: [employer], [employer] Current gender identity: male What is your relationship status?: Panel score (0-1 are the most socially isolated patients): 1 Seatbelt use: always Do you feel safe at home: No Additional Social history: Lives alone, states he doesn't feel safe. Not afraid of others. Exam <David Yadav MD - Last Filed: 11/19/19 13:39> Const General: cooperative and no acute distress HENMT Mouth: moist mucous membranes Eyes Conjunctivae: normal conjunctivae Sclera: normal sclerae Neck Neck: trachea midline and supple Resp Auscultation: clear to auscultation bilaterally, no rales, no rhonchi and no wheezes Cardio Jugular venous pressure: no JVD Rate: regular rate and not tachycardic Rhythm: regular rhythm GI Palpation: soft, not firm, no guarding, no masses, not rigid and nontender Skin General skin exam: no rashes or lesions noted Neuro General: patient alert, patient awake, patient oriented x3 and tone normal Extrem General: no edema Psych Appearance: grossly normal Mental Status: mental status grossly normal and other (Depressed) Speech and Movement: speech and movement normal Mood: anxious mood and other (Depressed) Affect: anxious affect Attitude: cooperative Thought Content: suicidality Insight: insight good Course <David Yadav MD - Last Filed: 11/19/19 13:39> Vital Signs Vital signs: Vital Signs Temperature 36.7 C 10/26/19 19:33 Pulse 102 H 10/26/19 19:33 Respiratory Rate 20 10/26/19 19:33 Blood Pressure 153/115 H 10/26/19 19:33 Pulse Oximetry 99 10/26/19 19:33 Temperature 36.7 C 10/26/19 19:33 Temperature Source Skin 10/26/19 19:33 Pulse 102 H 10/26/19 19:33 Respiratory Rate 20 10/26/19 19:33 Respiratory Effort Non-Labored 10/26/19 19:40 Blood Pressure 153/115 H 10/26/19 19:33 Blood Pressure Position Sitting 10/26/19 19:33 Pulse Oximetry 99 10/26/19 19:33 Oxygen Delivery Method Room Air 10/26/19 19:33 Oxygen Flow Rate 0 10/26/19 19:33 Sign Out <David Yadav MD - Last Filed: 11/19/19 13:39> Sign Out Data: Sign Out Comment: Care signed out to Dr. Diaz with plan to likely admit as hold in the a.m. pending psych placement. Last updated by David Yadav MD at 10/26/19 23:30 Sign Out Comment: awaiting psychiatric placement for depression/SI Last updated by Leighton Diaz MD at 10/27/19 00:38
--- NOTE | 2019-10-26 20:33 | WOUNDCARE ---
Chief Complaint:Chapin is a year old male arrived to the ED with SI with a plan. Chapin is voluntary and is awaiting [facility] crisis assessment. CM reviewed patient chart and reviewed patient with prior to safety plan implementation. Voluntary Interim safety plan; please note safety plan below to guide patient care while awaiting further assessment in the ED. SAFETY PLAN: 1. Will remain on suicide precautions and in paper clothes. 2. Will remain in room under direct supervision of one-on-one staff at all times provided by CPSO, REBECCA, PROGRAM DIRECTOR staple processing machine operator. 3. May have paper cups, plates, finger foods as well as a cardboard spoon with which to eat meals. 4. Follow [facility] Management of the Admitted Behavioral Health Patient policy. 5. Comfort wipes vs shower at the discretion of primary care team with appropriate supervision and 6. No personal belongings at this time. 7. Visitors: Mother is visitor of choice for the patient and appears to be supportive and calming. 8. Activities: include coloring, music, television books and other reading materials. 8. Telephone with supervision and at the discretion of primary care team. 9. Due to VOLUNTARY status, if patient wishes to leave [facility], the [facility] barge worker must be contacted to re-evaluate patient prior to patient exiting the building. If deemed appropriate for inpatient psychiatric care, safety plan will be established with patient, and care team, to adhere to patient goals, identify restrictions based on behavioral status, address nutrition, and determine allowed personal belongings, tools for hygiene and personal care. As well plan will determine level of activity including ambulation, level of supervision, visitors, and determine privileges based on level of acuity, behaviors and level of engagement by patient.
--- NOTE | 2019-10-26 20:49 | CMSP_ITS ---
- If Service Date Differs Date of service: 10/26/19 Time of Service: 20:49 Care Management Safety Plan Chief Complaint:Chapin is a year old male arrived to the ED with SI with a plan. Chapin is voluntary and is awaiting [facility] crisis assessment. CM reviewed patient chart and reviewed patient with prior to safety plan implementation. Voluntary Interim safety plan; please note safety plan below to guide patient care while awaiting further assessment in the ED. SAFETY PLAN: 1. Will remain on suicide precautions and in paper clothes. 2. Will remain in room under direct supervision of one-on-one staff at all times provided by CPSO, REBECCA, INSTITUTION LIBRARIAN warehouse worker 2nd shift. 3. May have paper cups, plates, finger foods as well as a cardboard spoon with which to eat meals. 4. Follow [facility] Management of the Admitted Behavioral Health Patient policy. 5. Comfort wipes vs shower at the discretion of primary care team with appropriate supervision and 6. No personal belongings at this time. 7. Visitors: Mother is visitor of choice for the patient and appears to be supportive and calming. 8. Activities: include coloring, music, television books and other reading materials. 8. Telephone with supervision and at the discretion of primary care team. 9. Due to VOLUNTARY status, if patient wishes to leave [facility], the [facility] tray line worker must be contacted to re-evaluate patient prior to patient exiting the building. If deemed appropriate for inpatient psychiatric care, safety plan will be established with patient, and care team, to adhere to patient goals, identify restrictions based on behavioral status, address nutrition, and determine allowed personal belongings, tools for hygiene and personal care. As well plan will determine level of activity including ambulation, level of supervision, visitors, and determine privileges based on level of acuity, behaviors and level of engagement by patient.
--- NOTE | 2019-10-26 20:57 | PDOC.MHCN ---
Date of service: 10/26/19 Time of Service: 20:57 Mental Health Crisis Note Presenting Issue How did you arrive at the ED and why did you come: Client was brought to the ED by his father and ex brother in law after making concerning comments about SI. Precipitating Factors Client reports feeling very depressed. Client reports tot his health technical writer that he is having persistent SI. He reports that he has been having thoughts of suicide a few times a day over the past few weeks. Client reports that if he were to leave the ED this evening, he would find a way to harm himself, he would either slit his wrists or take all of his meds so he does not wake up. Disposition BEHAVIOR: Clients behavior suggests sadness and depressesion. He is figity and appears teary when speaking with this health technical writer. EYE CONTACT: Client makes minimal eye contact with the ipad when speaking with this health technical writer. MOOD: Clients mood is gloomy and depressed. AFFECT: Clients affect is flat. APPETITE: Client reports no appetite recently. SLEEP(trouble falling/staying asleep: Client reports trouble sleeping over the past few weeks. Plan Client is seeking voluntary placement. Client will remain at [facility] until COVID results come back. Paperwork will be faxed to [facility] [place] and [facility] for possible placement. Care Management was contacted and a safety plan was put in place. Signature Clinician's Name/Title: Ruth Martinez [facility] Emergency Clinician
[2019-10-26 21:19] LABS: Abs Immature Grans 0.02 10^3/uL (0.0-0.06); Absolute Basophil Count 0.09 10^3/uL (0.0-0.2); Absolute Eosinophil Count 0.18 10^3/uL (0.0-0.7); Absolute Lymphocyte Count 3.46 10^3/uL (1.2-3.4); Absolute Neutrophil Count 6.36 10^3/uL (1.2-6.7); Basophils % 0.8; Eosinophils % 1.7; HCT 53.4 % (40.0-50.0); HGB 17.9 g/dL (13.5-17.5); Immature Grans % 0.2; Lymphocytes % 32.3; MCH 31.1 pg (27.0-33.0); MCHC 33.5 % (32.0-36.0); MCV 92.9 fL (80-95); Monocytes % 5.6; Neutrophils % 59.4; Nucleated RBC 0 %; Platelet Count 357 10^3/uL (130-400); RBC 5.75 10^6/uL (4.36-5.78); RDW 12.1 % (11.8-14.1); RDW-SD 41.4 fL; WBC 10.71 10^3/uL (4.4-10.8)
[2019-10-26] MEDS: LORazepam 0.5 MG TAB PO (21:23)
--- NOTE | 2019-10-26 21:24 | NUR.NOTE ---
Nursing Note: Patient appears very anxious laying in bed. Administered PO Ativan. Brother at bedside. Denies need for blanket, food, or drink at this time.
[2019-10-26 21:56] LABS: ALT 34 U/L (16-63); AST 13 U/L (15-37); Albumin 4.9 g/dL (3.4-5.0); Alkaline Phosphatase 73 U/L (46-116); BUN 16 mg/dL (7-18); Bilirubin, Total 0.6 mg/dL (0.2-1.0); CREATININE 1.27 mg/dL (0.70-1.30); Chloride 103 mmol/L (98-107); Glucose 95 mg/dL (74-106); Potassium 4.2 mmol/L (3.5-5.1); Sodium 141 mmol/L (136-145)
[2019-10-26 21:59] LABS: Salicylate 3.5 mg/dL (2.8-20.0)
[2019-10-26 22:01] LABS: Acetaminophen < 2 ug/mL (10-30)
[2019-10-26] MEDS: Gemfibrozil 600 MG TAB PO (23:22)
[2019-10-26] MEDS: Topiramate 50 MG TAB 25 MG PO (23:22)
[2019-10-26] MEDS: Amitriptyline 25 MG TAB PO (23:22)
[2019-10-26] MEDS: Levothyroxine 25 MCG TAB PO (23:22)
[2019-10-26] MEDS: Topiramate 25 MG TAB (23:22)
[2019-10-26 23:34] LABS: *AMPHETAMINES SCREEN URINE Negative (Negative); *BARBITURATES SCREEN URINE Negative (Negative); *BENZODIAZEPINES SCREEN URINE Negative (Negative); Cannabinoids THC Negative (Negative); Cocaine Screen,Urine Negative (Negative); METHADONE URINE SCREEN Negative (Negative); OPIATES URINE SCREEN Negative (Negative)
[2019-10-26 23:35] LABS: Tricyclic Antidepressants POSITIVE (Negative)
[2019-10-27 00:21] VITALS: BP 128/96
[2019-10-27 00:40] LABS: TSH (W/Ref FT4) 1.54 uIU/mL (0.36-3.74)
[2019-10-27] MEDS: Gabapentin 300 MG CAP PO (08:54)
[2019-10-27] MEDS: Topiramate 25 MG TAB PO ×2 (08:54→19:20)
[2019-10-27] MEDS: Gemfibrozil 600 MG TAB PO ×2 (08:55→19:20)
[2019-10-27] MEDS: Sertraline 50 MG TAB 150 MG PO (08:55)
[2019-10-27] MEDS: Metoprolol CR 25 MG TABCR PO (08:55)
[2019-10-27 09:10] VITALS: BP 126/90; PULSE 83; RESP 20; TEMP 36.7; O2SAT 97
--- NOTE | 2019-10-27 11:16 | CMPROGNOTE_ITS ---
- If Service Date Differs Date of service: 10/27/19 Time of Service: 11:16 Care Management Progress Note S/O: Chapin presented to the emergency department at [facility] yesterday after he expressed thoughts of hurting himself to family members. Today, Chapin continues to report suicidal ideation. He is pleasant when CM meets with him but his affect is flat and his mood depressed. He shares his recently left him and moved back in with her ex-, who happens to live next door to Wilma walton. His inability to get away from her and her family, as they all live in the same [place], is adding to his distress. Chapin names his mother, father, and [id number]-law (Myles) as sources of support for him. At his request, CM helps him complete a new HIPAA Directive. Chapin is evaluated by [facility] crisis screener, in CM's presence and found to continue to meet criteria for a voluntary psychiatric hospitalization. A: Chapin is a 48 year old male admitted to [facility] on 10/26/2019 for depression and suicidal ideation. P: Chapin will remain at [facility] until [facility] can secure a voluntary psychiatric placement for him. Referrals have been made to [facility], [facility], and [facility] for review. There, however, are no beds available today. CM will continue to follow.
[2019-10-27] MEDS: Acetaminophen 500 MG TAB 1000 MG PO (12:28)
[2019-10-27 12:52] LABS: COVID-19 RT-PCR UVMMC Result Negative (Negative)
--- NOTE | 2019-10-27 14:39 | PDOC.MHCN_ITS ---
Date of service: 10/27/19 Time of Service: 14:39 Mental Health Crisis Note Presenting Issue How did you arrive at the ED and why did you come: Chapin arrived to the ER last night via family and friends seeking a voluntary admission for treatment. Precipitating Factors Chapin endorses SI today rating his at a 7 or 8 out of 10. His plan would be to cut his wrist or o.d. on medications. Disposition BEHAVIOR: Chapin is cooperative but seems distracted in his thoughts. He is pleasant and trying to make good decissions. EYE CONTACT: Eye contact is inconsistent but he also appears tired. MOOD: Chapin's mood appears depressed and overwhelmed. AFFECT: Affect is flat APPETITE: Chapin reported his appetite is has not been good but he did eat breakfast this am. SLEEP(trouble falling/staying asleep: Chapin reported that he has only slept intermitently 20 mins here 20 mins there but nothing consistently. Plan Chapin has been referred to [facility] who called today to report they do not have a bed available. He has also been referred to [facility] [place] and . We are still awaiting call backs from those hospitals. All information has been faxed. Signature Clinician's Name/Title: Avril Adhikari MS, [facility] Emergency Services Clinician
[2019-10-27] MEDS: Ibuprofen 800 MG TAB PO (15:42)
--- NOTE | 2019-10-27 15:57 | W.PM.HP.N ---
Date of service: 10/27/19 Time of Service: 15:57 Assessment and Plan Assessment and plan (1) Major depression: Status: Chronic Assessment and plan: medically cleared and voluntary awaiting inpatient psychiatric bed. (2) Suicidal ideation: Status: Acute Assessment and plan: continue behavioral/suicidal safety plan. continues to endorse hopelessness and wanting help. mental health and case management following. discussed with Dr churchill who is in agreement History of Present Illness History of Present Illness Chief Complaint: depression Narrative: This is a 48-year-old male past medical history of hydrocephalus, status post multiple surgeries and shunt, cognitive developmental delay, depression, presented voluntarily to the ED with worsening depression and suicidality. Plan of slitting his wrist. He reports multiple stressors including significant stress related to a difficult break-up with his . His work up in the ED was unremarkable for any acute medical condition and he was medically cleared. he was held in the ED overnight and no inpatient psychiatric beds are available so he is being admitted to med/surg while awaiting placement. he is eating and drinking with no other c/o, he continues to report major depression, suicidal thoughts and helplessness. 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 is patent Hypogonadism (Acute) Hypothyroid (Chronic) Neck pain (Acute) Pseudoseizures (Acute) Sleep apnea (Acute) central per report; not compliant with CPAP/biPAP Tubular adenoma of colon (Acute) Surgical History Hx of colonoscopy (Chronic) Intracranial shunt with several revisions Per pt. is patent S/P carpal tunnel release (Acute) right S/P cholecystectomy (Acute) Social History Smoking/Tobacco Use Status: Never Alcohol Intake: never Drug use: Never Substance use type: does not use Household members: spouse and children Number of Children: 3 current occupation: [employer] Current gender identity: male What is your relationship status?: Panel score (0-1 are the most socially isolated patients): 1 Seatbelt use: always Do you feel safe at home: No Additional Social history: Lives alone, states he doesn't feel safe. Not afraid of others. Meds Home Medications and Allergies Home Medications Medication Instructions Recorded Confirmed Type gemfibrozil 600 mg PO BID 04/10/16 10/26/19 History multivitamin 1 tab PO DAILY 12/11/17 10/26/19 History levothyroxine 25 mcg tablet 25 mcg PO HS tab 01/27/19 10/26/19 History metoprolol succinate 25 mg 25 mg PO DAILY 01/27/19 10/26/19 History tablet,extended release 24 hr sertraline 25 mg tablet 150 mg PO DAILY tab-cap 01/27/19 10/26/19 History rizatriptan 10 mg PO PRN PRN 04/02/19 10/26/19 History topiramate 25 mg PO BID 04/02/19 10/26/19 History testosterone cypionate 200 mg/mL 200 mg IM Q2W #5 ml 09/12/19 10/26/19 Rx intramuscular oil gabapentin 300 mg PO DAILY 10/07/19 10/26/19 History acetaminophen 500 mg PO Q6H PRN PRN #60 tab 10/11/19 10/26/19 Rx ibuprofen 600 mg PO Q8H PRN PRN #60 tab 10/11/19 10/26/19 Rx amitriptyline 25 mg PO QHS 10/26/19 History Allergies Allergy/AdvReac Type Severity Reaction Status Date / Time Penicillins Allergy Severe Anaphylaxsi Verified 10/26/19 19:41 s vancomycin Allergy Severe Skin Rash Verified 10/26/19 19:41 latex Allergy Intermediate hives with Verified 10/26/19 19:41 latex powdered gloves Exam Const General: cooperative, healthy appearing and comfortable Nutritional Appearance: average body habitus Orientation: alert, awake and oriented x3 HENMT Head: normal to inspection, normocephalic and atraumatic Mouth: oral mucosae normal Resp Effort & Inspection: normal respiratory effort Auscultation: clear to auscultation bilaterally Cardio Rate: regular rate Rhythm: regular rhythm GI Inspection: normal to inspection Palpation: soft Auscultation: normal bowel sounds Skin General skin exam: no rashes or lesions noted Neuro General: patient alert, patient awake and patient oriented x3 Extrem General: normal to inspection and full ROM Psych Appearance: grossly normal Speech and Movement: speech and movement normal Affect: blunted Attitude: cooperative Thought Process: normal Thought Content: normal and suicidality Insight: fair Judgment: fair Results Labs Result diagrams: 10/26/19 21:07 10/26/19 21:07 Labs: Laboratory Results - last 24 hr 10/26/19 10/26/19 10/26/19 21:05 21:07 21:07 WBC RBC Hgb Hct MCV MCH MCHC RDW Plt Count MPV Immature Gran % Neutrophils % Lymphocytes % Monocytes % Eosinophils % Basophils % Nucleated RBC % Absolute Neutrophils Absolute Lymphocytes Absolute Monocytes Absolute Eosinophils Absolute Basophils Sodium 141 Potassium 4.2 Chloride 103 Carbon Dioxide 27.0 Anion Gap 11.0 BUN 16 Creatinine 1.27 Estimated GFR/1.73 m2 >= 60.00 Glucose 95 Calcium 10.0 Total Bilirubin 0.6 AST 13 L ALT 34 Alkaline Phosphatase 73 Total Protein 9.0 H Albumin 4.9 TSH Salicylates 3.5 Urine Opiates Screen Urine Methadone Screen Acetaminophen < 2 Ur Barbiturates Screen Ur Tricyclics Screen Ur Amphetamines Screen U Benzodiazepines Scrn Urine Cocaine Screen Ur THC Screen COVID-19 PCR Negative Nasopharyn COVID-19 PCR Not Applicable Ref Test Perform Site [facility] lab 10/26/19 10/26/19 10/27/19 21:07 23:18 00:00 WBC 10.71 RBC 5.75 Hgb 17.9 H Hct 53.4 H MCV 92.9 MCH 31.1 MCHC 33.5 RDW 12.1 Plt Count 357 MPV 9.0 Immature Gran % 0.2 Neutrophils % 59.4 Lymphocytes % 32.3 Monocytes % 5.6 Eosinophils % 1.7 Basophils % 0.8 Nucleated RBC % 0 Absolute Neutrophils 6.36 Absolute Lymphocytes 3.46 H Absolute Monocytes 0.60 Absolute Eosinophils 0.18 Absolute Basophils 0.09 Sodium Potassium Chloride Carbon Dioxide Anion Gap BUN Creatinine Estimated GFR/1.73 m2 Glucose Calcium Total Bilirubin AST ALT Alkaline Phosphatase Total Protein Albumin TSH 1.54 Salicylates Urine Opiates Screen Negative Urine Methadone Screen Negative Acetaminophen Ur Barbiturates Screen Negative Ur Tricyclics Screen Positive A Ur Amphetamines Screen Negative U Benzodiazepines Scrn Negative Urine Cocaine Screen Negative Ur THC Screen Negative COVID-19 PCR Nasopharyn COVID-19 PCR Ref Test Perform Site Last Vital Signs Temp 36.7 C 10/27/19 09:10 Pulse 83 10/27/19 09:10 Resp 20 10/27/19 09:10 BP 126/90 10/27/19 09:10 Pulse Ox 97 10/27/19 09:10 COVID-19 Screening Have you,or household,traveled outside [place] in last 14 days?: No Had IN PERSON contact w/suspected or confirmed C-19 person: No
[2019-10-27 16:28] VITALS: BP 126/86; PULSE 84; RESP 16; TEMP 36.5; O2SAT 96
--- NOTE | 2019-10-27 16:43 | CMSP_ITS ---
- If Service Date Differs Date of service: 10/27/19 Time of Service: 11:00 Care Management Safety Plan Chief Complaint: Chapin is a 48 year old male who presented to the ED yesterday with SI with a plan. Chapin is reassessed today by Avril, [facility] crisis screener, and found to continue to meet criteria for a voluntary psych hospitalization, as he continues to report depression and thoughts of hurting himself. Referrals are made to [facility], [facility] and [facility] for review. There are no available beds currently. VOLUNTARY FOR INPATIENT PSYCHIATRIC STABILIZATION. Patient is appropriate in all interactions since arriving at [facility]; Pt has demonstrated appropriate coping and communication skills, has articulated her needs and concerns and is fully engaged during staff interactions. Safety plan has been established with patient, and care team, to adhere to patient goals, identify restrictions based on behavioral status, address nutrition, and determine allowed personal belongings, tools for hygiene and personal care. Determine level of activity including ambulation, level of supervision, visitors, and determine privileges based on behaviors and level of engagement by pt. SAFETY PLAN: 1. Will remain on suicide precautions and in paper clothes. 2. Will remain in room under direct supervision of one-on-one staff at all times provided by CPSO, PALEONTOLOGY TEACHER, INTERNET MARKETING ANALYST damage prevention coordinator. 3. May have paper cups, plates, finger foods as well as a cardboard spoon with which to eat meals. 4. Follow [facility] Management of the Admitted Behavioral Health Patient policy. 5. Patient will be allowed to shower at the discretion of primary care team with appropriate supervision. 6. No personal belongings at this time. 7. Visitors: Myles ([id number]) is visitor of choice for the patient and appears to be supportive and calming. 8. Activities: Soft tip markers, paper, music, television, and other activities at nursing discretion. 8. Telephone with supervision and at the discretion of primary care team. 9. Due to VOLUNTARY status, if patient wishes to leave [facility], the [facility] social worker delinquency prevention must be contacted to re-evaluate patient prior to patient exiting the building. Patient is currently voluntarily at [facility] and seeking inpatient admission when a bed becomes available. [facility] Frontline Customer Training Specialist will continue seeking placement. Please contact the Sheet Metal Contractor Supervisor Pipeline Maintenance ([phone]) and [facility] Customer Training Specialist ([phone]) for any needed changes in the Safety Plan. Safety plan has been provided to interdepartmental care team.
[2019-10-27] MEDS: Enoxaparin 40 MG/0.4 ML SYR SC (19:19)
[2019-10-27] MEDS: Amitriptyline 25 MG TAB PO (20:52)
[2019-10-27] MEDS: Levothyroxine 25 MCG TAB PO (21:12)
[2019-10-27] MEDS: Acetaminophen 500 MG TAB PO (21:12)
[2019-10-28] MEDS: Gabapentin 300 MG CAP PO (08:45)
[2019-10-28] MEDS: Sertraline 50 MG TAB 150 MG PO (08:45)
[2019-10-28] MEDS: Gemfibrozil 600 MG TAB PO (08:45)
[2019-10-28] MEDS: Multivitamin TAB 1 TAB PO (08:46)
[2019-10-28] MEDS: Topiramate 25 MG TAB PO (08:46)
[2019-10-28] MEDS: Metoprolol CR 25 MG TABCR PO (08:47)
[2019-10-28 08:55] VITALS: BP 119/80; PULSE 79; RESP 16; TEMP 36.6; O2SAT 96
--- NOTE | 2019-10-28 09:50 | CMDISCH_ITS ---
- If Service Date Differs Date of service: 10/28/19 Time of Service: 09:50 LACE Index Scoring Tool - Questions: Length of Stay (in days): 3 Acuity (Admit via E.D.?): Yes E.D. Visits: 9 - Answers: Total Score: 10 Risk of Readmission: High Risk Care Management Discharge Reason for Hospitalization: SI, Depression Discharge Plan: Transfer to [facility] for psychiatric stabelization. Patient will be transported down via deputy sheriff civil division. Patient is aware of the transfer and facility. Patient/Family Education Needs: Transfer update. Services Needed at Discharge: Transportation - MH Services (Omit if N/A) Current MH Services: Psychiatric Inp
--- NOTE | 2019-10-28 10:49 | PGE_ITS ---
Date of Service Date of service: 10/28/19 Time of Service: 10:49 Assessment and Plan Assessment and plan (1) Major depression: Start date: 10/28/19 Start time: 10:50 Status: Chronic Assessment and plan: medically cleared and voluntary awaiting inpatient psychiatric bed. [place] reviewing patient. (2) Suicidal ideation: Start date: 10/28/19 Start time: 10:50 Status: Acute Assessment and plan: continue behavioral/suicidal safety plan. continues to endorse hopelessness and wanting help. mental health and case management following. discussed with Dr churchill who is in agreement Subjective Subjective Patient reports: no new complaints Interval history since last seen: Lying in stretcher, states the same when asked how he is doing. Continues to have thoughts of depression and harm. CM sent referrals. Exam Const General: cooperative, healthy appearing and comfortable Nutritional Appearance: average body habitus Orientation: alert, awake and oriented x3 HENMT Head: normal to inspection, normocephalic and atraumatic Mouth: oral mucosae normal Resp Effort & Inspection: normal respiratory effort Auscultation: clear to auscultation bilaterally Cardio Rate: regular rate Rhythm: regular rhythm GI Inspection: normal to inspection Palpation: soft Auscultation: normal bowel sounds Skin General skin exam: no rashes or lesions noted Neuro General: patient alert, patient awake and patient oriented x3 Extrem General: normal to inspection and full ROM Psych Appearance: grossly normal Speech and Movement: speech and movement normal Affect: blunted Attitude: cooperative Thought Process: normal Thought Content: normal and suicidality Insight: fair Judgment: fair Objective Objective Clinical Data: Vital Signs Temperature 36.6 C 10/28/19 08:55 Temperature Source Tympanic 10/28/19 08:55 Pulse 79 10/28/19 08:55 Pulse Rhythm Regular 10/27/19 16:30 Respiratory Rate 16 10/28/19 08:55 Respiratory Effort Non-Labored 10/28/19 00:00 Respiratory Depth Normal 10/28/19 00:00 Respiratory Pattern Normal 10/28/19 00:00 Blood Pressure 119/80 10/28/19 08:55 Blood Pressure Position Sitting 10/26/19 19:33 Pulse Oximetry 96 10/28/19 08:55 Oxygen Delivery Method Room Air 10/28/19 08:55 Oxygen Flow Rate 0 10/28/19 08:55 Pain Level 0 10/28/19 08:55 Intake & Output 10/27/19 10/27/19 10/28/19 11:59 23:59 11:59 Weight 74.843 kg Laboratory Results WBC 10.71 10^3/uL (4.4-10.8) 10/26/19 21:07 RBC 5.75 10^6/uL (4.36-5.78) 10/26/19 21:07 Hgb 17.9 g/dL (13.5-17.5) H 10/26/19 21:07 Hct 53.4 % (40.0-50.0) H 10/26/19 21:07 MCV 92.9 fL (80-95) 10/26/19 21:07 MCH 31.1 pg (27.0-33.0) 10/26/19 21:07 MCHC 33.5 % (32.0-36.0) 10/26/19 21:07 RDW 12.1 % (11.8-14.1) 10/26/19 21:07 Plt Count 357 10^3/uL (130-400) 10/26/19 21:07 MPV 9.0 fL (8.0-11.0) 10/26/19 21:07 Immature Gran % 0.2 10/26/19 21:07 Neutrophils % 59.4 10/26/19 21:07 Lymphocytes % 32.3 10/26/19 21:07 Monocytes % 5.6 10/26/19 21:07 Eosinophils % 1.7 10/26/19 21:07 Basophils % 0.8 10/26/19 21:07 Nucleated RBC % 0 % 10/26/19 21:07 Absolute Neutrophils 6.36 10^3/uL (1.2-6.7) 10/26/19 21:07 Absolute Lymphocytes 3.46 10^3/uL (1.2-3.4) H 10/26/19 21:07 Absolute Monocytes 0.60 10^3/uL (0.1-0.8) 10/26/19 21:07 Absolute Eosinophils 0.18 10^3/uL (0.0-0.7) 10/26/19 21:07 Absolute Basophils 0.09 10^3/uL (0.0-0.2) 10/26/19 21:07 Sodium 141 mmol/L (136-145) 10/26/19 21:07 Potassium 4.2 mmol/L (3.5-5.1) 10/26/19 21:07 Chloride 103 mmol/L (98-107) 10/26/19 21:07 Carbon Dioxide 27.0 mmol/L (21.0-32.0) 10/26/19 21:07 Anion Gap 11.0 mmol/L (3-11) 10/26/19 21:07 BUN 16 mg/dL (7-18) 10/26/19 21:07 Creatinine 1.27 mg/dL (0.70-1.30) 10/26/19 21:07 Estimated GFR/1.73 m2 >= 60.00 (mL/min/1.73m2) 10/26/19 21:07 Glucose 95 mg/dL (74-106) 10/26/19 21:07 Calcium 10.0 mg/dL (8.5-10.1) 10/26/19 21:07 Total Bilirubin 0.6 mg/dL (0.2-1.0) 10/26/19 21:07 AST 13 U/L (15-37) L 10/26/19 21:07 ALT 34 U/L (16-63) 10/26/19 21:07 Alkaline Phosphatase 73 U/L (46-116) 10/26/19 21:07 Total Protein 9.0 g/dL (6.4-8.2) H 10/26/19 21:07 Albumin 4.9 g/dL (3.4-5.0) 10/26/19 21:07 TSH 1.54 uIU/mL (0.36-3.74) 10/27/19 00:00 Salicylates 3.5 mg/dL (2.8-20.0) 10/26/19 21:07 Urine Opiates Screen Negative (Negative) 10/26/19 23:18 Urine Methadone Screen Negative (Negative) 10/26/19 23:18 Acetaminophen < 2 ug/mL (10-30) 10/26/19 21:07 Ur Barbiturates Screen Negative (Negative) 10/26/19 23:18 Ur Tricyclics Screen Positive (Negative) A 10/26/19 23:18 Ur Amphetamines Screen Negative (Negative) 10/26/19 23:18 U Benzodiazepines Scrn Negative (Negative) 10/26/19 23:18 Urine Cocaine Screen Negative (Negative) 10/26/19 23:18 Ur THC Screen Negative (Negative) 10/26/19 23:18 COVID-19 PCR Negative (Negative) 10/26/19 21:05 Nasopharyn COVID-19 PCR Not Applicable 10/26/19 21:05 Ref Test Perform Site [facility] lab 10/26/19 21:05
[2019-10-28] MEDS: Ibuprofen 600 MG TAB PO (12:13)
--- NOTE | 2019-10-28 13:34 | W.PM.DS.N ---
Date of service: 10/28/19 Time of Service: 13:34 DS: Diagnosis Discharge Diagnosis (1) Major depression: Start date: 10/28/19 Start time: 13:34 Status: Chronic Asessment and Plan: medically cleared and voluntary awaiting inpatient psychiatric bed. [place] reviewing patient (2) Suicidal ideation: Start date: 10/28/19 Start time: 13:35 Status: Acute Asessment and Plan: Accepted at [facility]. Above case discussed with Dr. Adams who is in agreement. Discharge Plan Disposition Patient Disposition: [facility] Condition: Stable Discharge Details Chief Complaint: PsychEval Clinical Impression: Depression Reason For Visit: MAJOR DEPRESSION Admit Date/Time: 10/27/19 15:37 Admit Provider: Flora Adams Attending Provider: Flora Adams Primary Care Provider: Rosario Varela ED Provider: Andrew Grant Hospital Course Hospital Course: 48-year-old male past medical history of hydrocephalus, status post multiple surgeries and shunt, cognitive developmental delay, depression, presented voluntarily to the ED with worsening depression and suicidality. Plan of slitting his wrist. He reported multiple stressors including significant stress related to a difficult break-up with his . His work up in the ED was unremarkable for any acute medical condition and he was medically cleared. he was held in the ED overnight when no inpatient psychiatric beds were available he was admitted to med/surg while awaiting placement. Today he has been accepted [facility]. Home Meds and New Rx's Prescriptions: Continued multivitamin tablet,chewable 1 tab PO DAILY RF: 0 metoprolol succinate 25 mg tablet extended release 24 hr 25 mg PO DAILY RF: 0 sertraline [Zoloft] 25 mg tablet 150 mg PO DAILY RF: 0 testosterone cypionate 200 mg/mL oil 200 mg IM Q2W Qty: 5 RF: 0 levothyroxine 25 mcg tablet 25 mcg PO HS RF: 0 topiramate 25 mg Tablet 25 mg PO BID RF: 0 rizatriptan 10 mg Tablet 10 mg PO PRN PRNRF: 0 gabapentin 300 mg Capsule 300 mg PO DAILY RF: 0 acetaminophen 500 mg tablet 500 mg PO Q6H PRN PRN (Reason: pain) Qty: 60 RF: 3 ibuprofen 600 mg tablet 600 mg PO Q8H PRN PRN (Reason: pain) Qty: 60 RF: 0 amitriptyline 100 mg tablet 25 mg PO QHS RF: 0 gemfibrozil 600 MG tablet 600 mg PO BID RF: 0 Discharge Instructions Instructions: Depression (DC) Additional Instructions: Transfer to [facility]. Activity:: Activity as Tolerated Diet:: As Tolerated Discharge Data Discharge Date/Time-TO BE ENTERED AT DEPARTURE: 10/28/19 13:43 DS: Summary Status at Discharge Functional status at discharge: independent ambulation Overall status at discharge: patient is not back to baseline Mental Status: mental status grossly normal and other Speech and Movement: speech and movement normal Mood: other Affect: blunted Exam Const General: cooperative, healthy appearing and comfortable Nutritional Appearance: average body habitus Orientation: alert, awake and oriented x3 HENMT Head: normal to inspection, normocephalic and atraumatic Mouth: oral mucosae normal Resp Effort & Inspection: normal respiratory effort Auscultation: clear to auscultation bilaterally Cardio Rate: regular rate Rhythm: regular rhythm GI Inspection: normal to inspection Palpation: soft Auscultation: normal bowel sounds Skin General skin exam: no rashes or lesions noted Neuro General: patient alert, patient awake and patient oriented x3 Extrem General: normal to inspection and full ROM Psych Appearance: grossly normal Mental Status: mental status grossly normal and other Speech and Movement: speech and movement normal Mood: other Affect: blunted Attitude: cooperative Thought Process: normal Thought Content: normal and suicidality Insight: fair Judgment: fair DS: Data Vitals/I&O Vitals and I&O: Vital Signs Temperature 36.6 C 10/28/19 08:55 Temperature Source Tympanic 10/28/19 08:55 Pulse 79 10/28/19 08:55 Pulse Rhythm Regular 10/28/19 09:55 Respiratory Rate 16 10/28/19 08:55 Respiratory Effort Non-Labored 10/28/19 09:55 Respiratory Depth Normal 10/28/19 09:55 Respiratory Pattern Normal 10/28/19 09:55 Blood Pressure 119/80 10/28/19 08:55 Blood Pressure Position Sitting 10/26/19 19:33 Pulse Oximetry 96 10/28/19 08:55 Oxygen Delivery Method Room Air 10/28/19 08:55 Oxygen Flow Rate 0 10/28/19 08:55 Pain Level 0 10/28/19 08:55 Intake & Output 10/27/19 10/28/19 10/28/19 23:59 11:59 23:59 Intake Total 240 / 490 250 / 490 Balance 240 / 490 250 / 490 Weight 74.843 kg Intake: Oral 240 / 490 250 / 490 Other: Voiding Methods Toilet [facility] Medical History Asymptomatic microscopic hematuria (Acute) Chronic headaches Cognitive developmental delay (Acute) CRI (chronic renal insufficiency) (Acute) Depression (Chronic) Dyspepsia (Acute) Epilepsy (Acute) in childhood; 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 is patent Hypogonadism (Acute) Hypothyroid (Chronic) Neck pain (Acute) Pseudoseizures (Acute) Sleep apnea (Acute) central per report; not compliant with CPAP/biPAP Tubular adenoma of colon (Acute) Surgical History Hx of colonoscopy (Chronic) Intracranial shunt with several revisions Per pt. is patent S/P carpal tunnel release (Acute) right S/P cholecystectomy (Acute) Social History Smoking/Tobacco Use Status: Never Alcohol Intake: never Drug use: Never Substance use type: does not use Household members: spouse and children Number of Children: 3 current occupation: [employer] Current gender identity: male What is your relationship status?: Panel score (0-1 are the most socially isolated patients): 1 Seatbelt use: always Do you feel safe at home: No Additional Social history: Lives alone, states he doesn't feel safe. Not afraid of others.
[2019-10-28] MEDS: LORazepam 1 MG TAB PO (17:02)
== END 2019-10-28 17:34 | disposition short-term general hospital (02) | DRG 881 ==
LOC: ER 10-27 15:17 → MS 10-27 16:11
PROVIDERS: Emergency Medicine; Student in an Organized Health Care Education/Training Program; Admitting Provider Internal Medicine; Emergency Provider Student in an Organized Health Care Education/Training Program; PCP Nurse Practitioner Family; Visit Provider Internal Medicine
DX: F32.9 Major depressive disorder, single episode, unspecified (principal); R45.851 Suicidal ideations; G40.89 Other seizures; Z11.59 Encounter for screening for other viral diseases; Z98.2 Presence of cerebrospinal fluid drainage device; N18.9 Chronic kidney disease, unspecified; E78.5 Hyperlipidemia, unspecified; E03.9 Hypothyroidism, unspecified; G47.31 Primary central sleep apnea; I12.9 Hypertensive chronic kidney disease with stage 1 through stage 4 chronic kidney disease, or unspecified chronic kidney disease
CPT/HCPCS: 36415; 80053; 80307; 99222; 99233; 99239; 99285; J1650; U0003; 80329; 84443; 85025; 99284

== ENCOUNTER 2019-11-25 14:32 | Outpatient (REF) | payer MEDICARE, MEDICAID, SELFPAY ==
[2019-11-28 23:53] LABS: Patient Race White; SARS-CoV-2 RNA Undetected (Undetected); SARS-CoV-2 Specimen Source Nasal
== END 2019-11-25 14:52 ==
LOC: NCHCN 14:32
PROVIDERS: PCP Nurse Practitioner Family; Visit Provider Nurse Practitioner Family
DX: Z20.828 Contact with and (suspected) exposure to other viral communicable diseases (principal)
CPT/HCPCS: U0003

== ENCOUNTER 2019-11-29 10:24 | Emergency (ER) | payer MEDICARE, MEDICAID, SELFPAY ==
[2019-11-29 10:28] VITALS: BP 142/93; PULSE 90; RESP 20; TEMP 36.1; O2SAT 96
--- NOTE | 2019-11-29 10:54 | W.ED.FU ---
Date of service: 11/29/19 Time of Service: 10:45 49-year-old gentleman presents to the ER with his roommate. He states that he is already spoken with [facility] and he was instructed to be a direct admission to his care bed. He admits to depression but denies any active suicidal or homicidal ideations. Denies recent illness or trauma. Prior to a full HPI and examination being completed we spoke with Tiny at [facility] who states that who states that he was not supposed to go to the ER and he actually has a care bed at their facility, intake is at 1 PM. I clarified this both with patient and his roommate. He is relieved because he did not understand why he needed to come to the ER in the first place. He denies recent illness or trauma, does not believe that he has an emergent medical process that would require an ER visit. Patient is awake, alert, ambulatory, has capacity to make decisions. Patient will leave the ER in the care of his roommate and they will present to the care bed at 1 PM for the intake. Patient signed into the ER under a misunderstanding and in error. I have requested that registration delete his visit so he is not charged in error.
--- NOTE | 2019-11-29 12:12 | NUR.NOTE ---
patient presented to er in error. [facility]
== END 2019-11-29 10:52 ==
PROVIDERS: Emergency Provider Physician Assistant; PCP Nurse Practitioner Family
DX: Z53.21 Procedure and treatment not carried out due to patient leaving prior to being seen by health care provider (principal)
CPT/HCPCS: 80307; U0003; 81003

== ENCOUNTER 2019-12-01 20:20 | Emergency (ER) | payer MEDICARE, MEDICAID, SELFPAY ==
[2019-12-01 20:27] VITALS: BP 128/81; PULSE 90; RESP 18; TEMP 37; O2SAT 98
--- NOTE | 2019-12-01 20:30 | W.ED.GENAD ---
Discharge Plan Disposition Patient Disposition: HOME Condition: Good Discharge Details Clinical Impression: Headache Primary Care Provider: Rosario Varela ED Provider: Andrew Grant Home Meds and New Rx's Prescriptions: Continued metoprolol succinate 25 mg tablet extended release 24 hr 25 mg PO DAILY RF: 0 testosterone cypionate 200 mg/mL oil 200 mg IM Q2W Qty: 5 RF: 0 levothyroxine 25 mcg tablet 25 mcg PO DAILY RF: 0 rizatriptan 10 mg Tablet 5 mg PO .PRN MIGRAINES PRNRF: 0 acetaminophen 500 mg tablet 500 mg PO Q6H PRN PRN (Reason: pain) Qty: 60 RF: 3 ibuprofen 600 mg tablet 600 mg PO Q8H PRN PRN (Reason: pain) Qty: 60 RF: 0 amitriptyline 100 mg tablet 100 mg PO QHS RF: 0 benztropine 0.5 mg tablet 0.5 mg PO QHS RF: 0 sertraline 100 mg tablet 100 mg PO DAILY RF: 0 topiramate 25 mg tablet 25 mg PO BID RF: 0 gabapentin 300 mg capsule 300 mg PO DAILY RF: 0 gemfibrozil [Lopid] 600 mg Tablet 600 mg PO BID RF: 0 amitriptyline 100 mg tablet 100 mg PO DAILY RF: 0 sucralfate 1 gram tablet 1 g PO QID RF: 0 Latuda 20 mg tablet 40 mg PO HS RF: 0 Discharge Instructions Instructions: General Headache (ED) Additional Instructions: At this time the [facility] neurosurgery team feels that you do need to be seen but not emergently. You will be getting a call from them tomorrow. I have updated them with your new cell phone number the care bed phone number and your mother's phone number. If you notice any worsening of your symptoms, or any new symptoms such as worsening pain, pain that is positional, dizziness, visual changes, vomiting, diarrhea, fever, chills, shortness of breath, chest pain, numbness, weakness, or fainting , please return immediately to the emergency department for reevaluation. Please follow up with your primary care provider as soon as possible for reassessment and reevaluation. As always, it was a pleasure participating in your medical care today. Referrals: Rosario Varela [Primary Care Provider] - Medical Decision Making This is a 49-year-old male with a past medical history of hydrocephalus, migraines, seizures on Tegretol, 37 revisions of patient most recent being 5 years ago, who presents today for evaluation of headache. Patient states that earlier this morning he developed a mild headache which she thought was slightly atypical from his normal shunt migraines, he took ibuprofen but this did not change anything. Throughout the day the headache worsened and became identical to his normal shunt complication headaches. He has an aversion to light, he does admit to feeling warm but denies any fever otherwise, he denies chills, nausea, vomiting or diarrhea. He does admit to mild dizziness and imbalance. He denies any recent falls trauma or other complaints. He denies any abdominal or chest pain. No other complaints at this time. Exam demonstrates tenderness on palpation over the shunt on his right neck. No nuchal rigidity. Vital signs stable. Neurologic exam demonstrates mild unsteadiness but otherwise no focal neurologic deficits. Symptoms are certainly concerning for shunt pathology or problem. We will treat the patient's pain, get a CT scan of the head, shunt series, monitor closely and evaluate for infectious etiology. We will hold off on lumbar puncture at this time as he is afebrile with no tachycardia no meningeal signs. 10:[address] imaging and shunt series negative for acute process or evidence of enlargement of ventricles. Laboratory work-up including CRP and ESR are both unremarkable, no suggestion of significant infection, clinically the patient shows no meningeal signs. Bedside ocular ultrasound shows no large papilledema that can be visualized, however optic nerve is minimally widened at about 5.5 mm. Of note the patient does not have any worsening or improvement of his pain with sitting upright standing upright or lying down. He continues to show no signs of focal deficits that I can appreciate. Estuardo was called in the case was discussed with neurosurgery/Diane madrid, upon review of the imaging by [facility], and complete discussion of the case including all findings, [facility] feels that the patient does not require emergent transfer based on the current symptomatology and does recommend close outpatient follow-up. Review of previous evaluations of the shunt demonstrate that he had enlargement of the ventricles when he has had a shunt complication before. [facility] does recommend discharge with close follow-up tomorrow and they will be calling him. We will add Solu-Medrol Compazine and Benadryl for the patient. He remained stable. 10:59 PM Of note the patient does have a new cell phone, it is [phone] I did contact [facility] and give the transfer center his new number as well as the care bed facility number to call, as well as his mother's phone number. All of these were updated at [facility]. Additionally the patient's mother was made aware of the current plan. Repeat neurologic exam patient does have improvement of his symptoms, and continues to show no neurologic deficits. 's plan and recommendations patient will be discharged back to his care bed, with prompt follow-up with [facility]. I have extensively reviewed the treatment plan and discharge instructions with the patient and their family. I have addressed all patient concerns at this time. The patient and family was made aware of what symptoms to monitor for that would warrant a return to the emergency department. Discussed the plan with the patient and family, they demonstrate verbal understanding and agreement with our assessment and plan at this time. IMPRESSION: The left approach ventriculoperitoneal shunt is in stable configuration. Extends along the right neck and right thorax, looping in the right mid abdomen. Thank you for allowing us to participate in the care of your patient. Dictated and Authenticated by: Marie Palomo MD 12/01/2019 9:31 PM Eastern Time ([place] & [place]) FINDINGS: Tubes, catheters and devices: Ventricular shunt catheter noted within the right neck soft tissues. Vertebrae: No acute fracture, vertebral body heights are preserved. No spondylolisthesis. Discs/Spinal canal/Neural foramina: Mild degenerative disc disease with marginal osteophyte formation at C6-C7, minimal at C7-T1. Intervertebral disc heights appear preserved. Osseous central canal and neural foramina are patent. Soft tissues: No focal abnormality. Thyroid: No mass. Lymph nodes: No pathologically sized nodes by CT size criteria. IMPRESSION: 1. No acute finding. 2. Mild degenerative disc disease at C6-C7. Thank you for allowing us to participate in the care of your patient. Dictated and Authenticated by: Frederick Sofia MD 12/01/2019 9:41 PM Eastern Time ([place] & [place]) FINDINGS: Brain: Normal volume for age. No hemorrhage. No significant white matter disease. No edema. Cerebral ventricles: Redemonstrated right frontal approach ventricular shunt catheter with distal tip in the region of the foramen of Monro, stable to comparison. There is linear hypodensity of the right parietal lobe with associated right parietal bone defect consistent with old right parietal ventricular shunt catheter tract. No ventriculomegaly, ventricles are collapsed. There is mild ex vacuo dilation of the temporal horn of the right lateral ventricle, however this is favored to be related to possible prior surgery or injury, this is a stable finding. Bones/joints: Redemonstrated right temporal craniectomy defect, stable in appearance. No acute osseous finding. Paranasal sinuses: Visualized sinuses are unremarkable. No fluid levels. Mastoid air cells: No mastoid effusion. Soft tissues: No focal soft tissue abnormality. IMPRESSION: 1. Stable configuration and positioning of right frontal approach ventricular shunt catheter. No ventriculomegaly. 2. No acute intracranial finding. HPI General Date/Time Provider Initiated Documentation: 12/01/19 20:29. HPI Narrative: This is a 49-year-old male with a past medical history of hydrocephalus, migraines, seizures on Tegretol, 37 revisions of patient most recent being 5 years ago, who presents today for evaluation of headache. Patient states that earlier this morning he developed a mild headache which she thought was slightly atypical from his normal shunt migraines, he took ibuprofen but this did not change anything. Throughout the day the headache worsened and became identical to his normal shunt complication headaches. He has an aversion to light, he does admit to feeling warm but denies any fever otherwise, he denies chills, nausea, vomiting or diarrhea. He does admit to mild dizziness and imbalance. He denies any recent falls trauma or other complaints. He denies any abdominal or chest pain. No other complaints at this time. Related Data Home Medications Medication Instructions Recorded Confirmed levothyroxine 25 mcg tablet 25 mcg PO DAILY tab 01/27/19 12/01/19 metoprolol succinate 25 mg 25 mg PO DAILY 01/27/19 12/01/19 tablet,extended release 24 hr rizatriptan 5 mg PO .PRN MIGRAINES PRN 04/02/19 12/01/19 testosterone cypionate 200 mg/mL 200 mg IM Q2W #5 ml 09/12/19 12/01/19 intramuscular oil acetaminophen 500 mg PO Q6H PRN PRN #60 tab 10/11/19 12/01/19 ibuprofen 600 mg PO Q8H PRN PRN #60 tab 10/11/19 12/01/19 amitriptyline 100 mg PO QHS 10/26/19 12/01/19 Latuda 40 mg PO HS 11/29/19 12/01/19 sucralfate 1 g PO QID 11/29/19 12/01/19 amitriptyline 100 mg PO DAILY 12/01/19 12/01/19 benztropine 0.5 mg PO QHS 12/01/19 12/01/19 gabapentin 300 mg PO DAILY 12/01/19 12/01/19 gemfibrozil [Lopid] 600 mg PO BID 12/01/19 12/01/19 sertraline 100 mg PO DAILY 12/01/19 12/01/19 topiramate 25 mg PO BID 12/01/19 12/01/19 Previous Rx's Medication Instructions Recorded testosterone cypionate 200 mg/mL 200 mg IM Q2W #5 ml 09/12/19 intramuscular oil acetaminophen 500 mg PO Q6H PRN PRN #60 tab 10/11/19 ibuprofen 600 mg PO Q8H PRN PRN #60 tab 10/11/19 Allergies Allergy/AdvReac Type Severity Reaction Status Date / Time Penicillins Allergy Severe Anaphylaxsi Verified 12/01/19 20:32 s vancomycin Allergy Severe Skin Rash Verified 12/01/19 20:32 latex Allergy Intermediate hives with Verified 12/01/19 20:32 latex powdered gloves General GLO: 2 Review of Systems All systems reviewed & are unremarkable except as noted in HPI and below PFSH Medical History (Updated 12/01/19 @ 22:49 by Andrew Grant DO) Asymptomatic microscopic hematuria Chronic headaches Cognitive developmental delay CRI (chronic renal insufficiency) Depression Dyspepsia 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 is patent Hypogonadism Hypothyroid Neck pain Pseudoseizures Sleep apnea central per report; not compliant with CPAP/biPAP Tubular adenoma of colon Surgical History Hx of colonoscopy Intracranial shunt with several revisions Per pt. is patent S/P carpal tunnel release right S/P cholecystectomy Social History Smoking/Tobacco Use Status: Never Alcohol Intake: never Drug use: Never Substance use type: does not use Household members: spouse and children Number of Children: 3 current occupation: [employer] Current gender identity: male What is your relationship status?: Panel score (0-1 are the most socially isolated patients): 1 Seatbelt use: always Do you feel safe at home: Yes Do you feel safe in your relationship?: Yes Exam Narrative Exam Narrative: 1.Const: Well-nourished, Well-developed, appearing stated age 2.Eyes: PERRL, no conjunctival injection, and symmetrical lids. 3.ENT: Atraumatic external nose and ears. Moist MM. Neck: Symmetric, trachea midline, No thyromegaly. Right side of patient's neck demonstrates present shunt noticed palpable. Mildly to moderately tender on palpation over the area of the shunt. Patient demonstrates good movement of cervical neck. There is no nuchal rigidity, but he does have mild tenderness with movement, no nuchal tenderness. Patient is able to flex the neck without any difficulty. Negative Kernig's and Brudzinski sign. 4.CVS: +S1/S2, No murmurs or gallops. Peripheral pulses 2+ and equal in all extremities. Brisk capillary refill in all extremities. 5.RESP: Unlabored respiratory effort. Clear to auscultation bilaterally. No wheezes rales or rhonchi 6.GI: Soft, Nontender/Nondistended, No hepatosplenomegaly. No guarding or rebound. 7.MSK: Normocephalic/Atraumatic, Extremities w/o deformity or ttp No cyanosis or clubbing, Normal movement of all extremities 8.Skin: Warm, Dry. No rashes or lesions. 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 Sensation grossly intact, no focal neurologic deficits. All 6 cardinal planes of vision are fully intact. No evidence of rotatory or vertical nystagmus. The patient demonstrated a normal [id number], good dexterity. There was no evidence of dysdiadochokinesia. Patient was able to ambulate but is slightly unsteady on his feet. [id number] testing was normal. Sensation was intact bilaterally as well as muscle strength bilaterally for all extremities. Patient was able to verbalize butter cup with no slurring, or miss pronunciation. 10.Psych: (AAO) x3. Appropriate mood and affect
[2019-12-01 20:52] LABS: Abs Immature Grans 0.02 10^3/uL (0.0-0.06); Absolute Basophil Count 0.07 10^3/uL (0.0-0.2); Absolute Eosinophil Count 0.16 10^3/uL (0.0-0.7); Absolute Lymphocyte Count 3.13 10^3/uL (1.2-3.4); Absolute Neutrophil Count 4.63 10^3/uL (1.2-6.7); Basophils % 0.8; Eosinophils % 1.8; HCT 48.9 % (40.0-50.0); HGB 16.9 g/dL (13.5-17.5); Immature Grans % 0.2; Lymphocytes % 35.9; MCH 31.3 pg (27.0-33.0); MCHC 34.6 % (32.0-36.0); MCV 90.6 fL (80-95); MPV 9.1 fL (8.0-11.0); Neutrophils % 53.3; Nucleated RBC 0 %; Platelet Count 323 10^3/uL (130-400); RDW-SD 39.8 fL; WBC 8.71 10^3/uL (4.4-10.8)
[2019-12-01] MEDS: Normal Saline 1,000 ML 1000 ML IV (21:00)
[2019-12-01] MEDS: ACETAMINOPHEN 1,000 MG/100 ML BTL 400 MG IVPB (21:00)
[2019-12-01 21:05] LABS: ALT 37 U/L (16-63); AST 15 U/L (15-37); Alkaline Phosphatase 58 U/L (46-116); Anion Gap 10.8 mmol/L (3-11); BUN 18 mg/dL (7-18); Bilirubin, Total 0.4 mg/dL (0.2-1.0); CO2 25.2 mmol/L (21.0-32.0); CREATININE 1.28 mg/dL (0.70-1.30); Calcium 9.1 mg/dL (8.5-10.1); Chloride 103 mmol/L (98-107); Glucose 112 mg/dL (74-106); Potassium 3.8 mmol/L (3.5-5.1); Sodium 139 mmol/L (136-145); Total Protein 7.7 g/dL (6.4-8.2)
--- NOTE | 2019-12-01 21:08 | DI.CT_ITS ---
EXAM: CT HEAD CERVICAL SPINE WO CLINICAL HISTORY: right shunt, ALICEA, concern for shunt pathology TECHNIQUE: COMPARISON: CT CT HEAD WO from 02/04/[address] HEAD WO from 02/04/2019 FINDINGS: Cranial CT was performed and is compared with most recent prior CT February 04, 2019. Note is again made of right craniotomy defects, an old shunt tube tract, and current right shunt frontal a pleura a pproach placement with tip in region of the foramen of Monro. No change in appearance comparison wit h prior study. No acute hydrocephalus. No acute hemorrhage. No mass effect. Orbital and temporal bone structures appear intact. CT examination of the cervical spine was performed without contrast administration. Right DISPLAY ARTIST shunt n oted in lateral soft tissues of the neck. No evidence of acute fracture or dislocation. Mild degene rative changes cervical spine endplate hypertrophy particularly in lower cervical region. There is a question of broad-based right paracentral disc herniation at C6-7, this may significantly narrow the spinal canal at this level. Additionally there is suggestion of a C7-T1 central disc yani iation. Additional evaluation with cervical spine MRI suggested to evaluate these apparent disc yani iations. IMPRESSION: No evidence of acute intracranial process. DISPLAY ARTIST shunt tube in place. No evidence of cervical spine fracture or dislocation. Question C6-7 and C7-T1 disc herniations, cor relation with cervical spine MRI suggested if clinically appropriate. RADIATION DOSE DELIVERED: 1,486.07mGy.cm Total DLP
--- NOTE | 2019-12-01 21:18 | DI.RAD_ITS ---
EXAM: XR SHUNT SERIES CLINICAL HISTORY: headache, concern for shunt pathology TECHNIQUE: COMPARISON: CR XR SHUNT SERIES from 02/04/2019 FINDINGS: Multiple views were obtained. Ventriculo peritoneal shunt tube noted in position. I cannot confirm the continuity of the shunt tube in the right cervical region just below the level of craniocervical junction. However this shunt to move did appear continuous on CT examination of this region. Otherw ise placement is unremarkable with the shunt tip in the region of the foramen of Monro as noted on CT . IMPRESSION: RADIATION DOSE DELIVERED: Total DLP
[2019-12-01 21:30] LABS: C-Reactive Protein 0.08 mg/dL (0.0-0.3)
[2019-12-01 21:31] LABS: ESR 13 mm/hr (0-15)
[2019-12-01 22:14] VITALS: BP 126/76; PULSE 76; RESP 16; O2SAT 98
[2019-12-01] MEDS: methylPREDNISolone SUCC 125 MG VIAL IVP (22:39)
[2019-12-01] MEDS: diphenhydrAMINE 50 MG/ML VIAL 25 MG IVP (22:39)
[2019-12-01] MEDS: Prochlorperazine 10 MG/2 ML VIAL IVP (22:40)
[2019-12-01 23:19] VITALS: BP 118/70; PULSE 76; RESP 16; O2SAT 97
--- NOTE | 2019-12-08 16:03 | DI.VRAD_ITS ---
PROCEDURE INFORMATION: Exam: XR Shunt Series With 4 XR Procedures Exam date and time: 12/01/2019 21:10 Age: 49 years old Clinical indication: Other: Headache, concern for shunt placement; Headache not specified; Neck pain; Prior surgery; Patient HX: Right sided shunt pain around right ear, radiating into neck. Severe headache. TECHNIQUE: Imaging protocol: XR Shunt Series was performed with skull less than 4 views, neck 1 view, chest 1 view, and abdomen 1 view. COMPARISON: CT HEAD CERVICAL SPINE WO 12/01/2019 21:03 FINDINGS: Tubes, catheters and devices: The left approach ventriculoperitoneal shunt is in stable configuration. Extends along the right neck and right thorax, looping in the right mid abdomen. Minor areas of calcification are suggested around the shunt tract in the right thorax, a common finding. Intraperitoneal space: Surgical clip projecting over the left mid abdomen. Organs: Right upper quadrant clips, probable cholecystectomy. IMPRESSION: The left approach ventriculoperitoneal shunt is in stable configuration. Extends along the right neck and right thorax, looping in the right mid abdomen. Dictated and Authenticated by: Marie Palomo MD. Ordering:DYLAN Morales MD
--- NOTE | 2019-12-08 16:03 | DI.VRAD_ITS ---
PROCEDURE INFORMATION: Exam: CT Head Without Contrast Exam date and time: 12/01/2019 9:04 PM Age: 49 years old Clinical indication: Pain; Headache not specified; Other: Concern for shunt pathology; Prior surgery; Surgery type: Shunt placement TECHNIQUE: Imaging protocol: Computed tomography of the head without contrast. Radiation optimization: All CT scans at this facility use at least one of these dose optimization techniques: automated exposure control; mA and/or kV adjustment per patient size (includes targeted exams where dose is matched to clinical indication); or iterative reconstruction. COMPARISON: CT HEAD WO 02/04/2019 1:34 PM FINDINGS: Brain: Normal volume for age. No hemorrhage. No significant white matter disease. No edema. Cerebral ventricles: Redemonstrated right frontal approach ventricular shunt catheter with distal tip in the region of the foramen of Monro, stable to comparison. There is linear hypodensity of the right parietal lobe with associated right parietal bone defect consistent with old right parietal ventricular shunt catheter tract. No ventriculomegaly, ventricles are collapsed. There is mild ex vacuo dilation of the temporal horn of the right lateral ventricle, however this is favored to be related to possible prior surgery or injury, this is a stable finding. Bones/joints: Redemonstrated right temporal craniectomy defect, stable in appearance. No acute osseous finding. Paranasal sinuses: Visualized sinuses are unremarkable. No fluid levels. Mastoid air cells: No mastoid effusion. Soft tissues: No focal soft tissue abnormality. IMPRESSION: 1. Stable configuration and positioning of right frontal approach ventricular shunt catheter. No ventriculomegaly. 2. No acute intracranial finding. PROCEDURE INFORMATION: Exam: CT Cervical Spine Without Contrast Exam date and time: 12/01/2019 9:04 PM Age: 49 years old Clinical indication: Pain; Headache not specified; Other: Concern for shunt pathology; Prior surgery; Surgery type: Shunt placement TECHNIQUE: Imaging protocol: Computed tomography images of the cervical spine without contrast. Radiation optimization: All CT scans at this facility use at least one of these dose optimization techniques: automated exposure control; mA and/or kV adjustment per patient size (includes targeted exams where dose is matched to clinical indication); or iterative reconstruction. COMPARISON: CT HEAD WO 02/04/2019 1:34 PM FINDINGS: Tubes, catheters and devices: Ventricular shunt catheter noted within the right neck soft tissues. Vertebrae: No acute fracture, vertebral body heights are preserved. No spondylolisthesis. Discs/Spinal canal/Neural foramina: Mild degenerative disc disease with marginal osteophyte formation at C6-C7, minimal at C7-T1. Intervertebral disc heights appear preserved. Osseous central canal and neural foramina are patent. Soft tissues: No focal abnormality. Thyroid: No mass. Lymph nodes: No pathologically sized nodes by CT size criteria. IMPRESSION: 1. No acute finding. 2. Mild degenerative disc disease at C6-C7. Dictated and Authenticated by: Frederick Sofia MD. Ordering:DYLAN Morales MD
== END 2019-12-01 23:13 | disposition home or self-care (01) ==
PROVIDERS: Emergency Provider Student in an Organized Health Care Education/Training Program; PCP Nurse Practitioner Family
DX: G43.809 Other migraine, not intractable, without status migrainosus (principal); G91.9 Hydrocephalus, unspecified; R42 Dizziness and giddiness; I10 Essential (primary) hypertension; Z98.2 Presence of cerebrospinal fluid drainage device
CPT/HCPCS: 36415; 80053; 85652; 87040; 96361; 96374; 96375; 99284; 70360; 70450; 71045; 72050; 72125; 74018; 85025; 86140; 99285; J0131; J0780; J1200; J2930

== ENCOUNTER → 2019-12-01 20:23 | Emergency (ER) | payer SELFPAY | LOC: ER 20:28 | PROVIDERS: PCP Nurse Practitioner Family | DX: Z53.21 Procedure and treatment not carried out due to patient leaving prior to being seen by health care provider (principal) ==

== ENCOUNTER 2019-12-07 19:17 | Emergency (ER) | payer MEDICARE, MEDICAID, SELFPAY ==
[2019-12-07 19:18] VITALS: BP 134/84; PULSE 87; RESP 20; TEMP 36.7; O2SAT 98
--- NOTE | 2019-12-07 19:21 | ED.GENADUL_ITS ---
Discharge Plan Disposition Patient Disposition: HOME Condition: Stable Discharge Details Clinical Impression: Chronic headaches, Dehydration, Creatinine elevation Primary Care Provider: Rosario Varela ED Provider: Guerita Zarate Home Meds and New Rx's Prescriptions: Continued metoprolol succinate 25 mg tablet extended release 24 hr 25 mg PO DAILY RF: 0 testosterone cypionate 200 mg/mL oil 200 mg IM Q2W Qty: 5 RF: 0 levothyroxine 25 mcg tablet 25 mcg PO DAILY RF: 0 rizatriptan 10 mg Tablet 10 mg PO .PRN MIGRAINES PRNRF: 0 acetaminophen 500 mg tablet 500 mg PO Q6H PRN PRN (Reason: pain) Qty: 60 RF: 3 ibuprofen 600 mg tablet 600 mg PO Q8H PRN PRN (Reason: pain) Qty: 60 RF: 0 amitriptyline 100 mg tablet 150 mg PO QHS RF: 0 benztropine 0.5 mg tablet 0.5 mg PO QHS RF: 0 sertraline 100 mg tablet 100 mg PO DAILY RF: 0 topiramate 25 mg tablet 25 mg PO BID RF: 0 gabapentin 300 mg capsule 300 mg PO DAILY RF: 0 gemfibrozil [Lopid] 600 mg Tablet 600 mg PO BID RF: 0 Latuda 20 mg tablet 40 mg PO HS RF: 0 Discharge Instructions Instructions: Dehydration (ED), Acute Headache (ED) Additional Instructions: Your exam, labs and imaging are reassuring today in regard to your headache and RESTORATIVE CARE 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. Please continue to encourage water intake. You do have an elevated creatinine which goes along with dehydration and kidney injury. I would like for you to have this rechecked in the next 1 to 2 days. Please call your primary care tomorrow to schedule follow-up appointment. If you develop fever/chills, increased pain, vomiting, sensory deficit, weakness or other new/worsening symptom please seek care urgently once again. Referrals: Rosario Varela [Primary Care Provider] - Discharge Data Discharge Date/Time-TO BE ENTERED AT DEPARTURE: 12/07/19 22:57 Medical Decision Making Patient is a pleasant 49-year-old male presented with chief complaint of headache. Has been seen here multiple times historically for the same. He was seen here last on 12/01/2019. Was subsequently seen at [facility] by neurosurgery. I did review those notes. States that he is been having headaches associated with his RESTORATIVE CARE 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. There is concern for potential dysfunction of the shunt itself. He is scheduled to have a nuclear medicine scan at [facility] to look for functionality. He denies any fevers or chills. States that the headaches have been worsening. He did take Tylenol and ibuprofen this morning which did help but does not take anything since. No nausea vomiting. No focal weakness or n eurologic deficit has been noted. Patient is residing at the care bed at [facility] there had been concerned that he may have had some erythema along the length of his RESTORATIVE CARE 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. Patient does state this area is tender. Past medical history is pertinent for hydrocephalus, migraines, seizures on Tegretol, multiple revisions. Mother does report that he had a RESTORATIVE CARE 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 infection at the age of 7 On exam, he appears nontoxic. Has a some swelling around his RESTORATIVE CARE 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 but this does not seem to be grossly enlarged. I do not appreciate any erythema. No warmth. He is tender over the length of the shunt with palpation. No nuchal rigidity. No rash. Neurologic exam is intact. Plan to obtain labs as well as CT imaging of his head to assess for any emergent issue with his shunt. FINDINGS: Tubes, catheters and devices: Right frontal approach ventriculostomy catheter with catheter tip in the left frontal horn. Brain: No evidence for acute transcortical infarct. No mass effect or midline shift. No extra-axial collection. No acute intracranial hemorrhage. Basal cisterns are patent. Cerebral ventricles: Stable slit-like configuration of the ventricles. Bones/joints: Right craniotomy changes. Paranasal sinuses: Visualized sinuses are unremarkable. No fluid levels. Mastoid air cells: Visualized mastoid air cells are well aerated. Soft tissues: Unremarkable. IMPRESSION: 1. Right frontal approach ventriculostomy catheter with catheter tip in the left frontal horn. Stable slitlike configuration of the ventricles. 2. No acute intracranial hemorrhage or mass effect. Labs reviewed. No leukocytosis. Lactate is within normal limits. ESR is also within normal limits. His creatinine is elevated at 1.5. Patient typically is around 1.2-1.3 range. However, this is elevated for him. He did appear dry on exam. He is receiving IV hydration. I did discuss this with the patient. Consulted with neurosurgery at [facility]. She reviewed imaging, we discussed case, labs, elevated creatinine exam. She advised that yesterday the patient was endorsing some pain along the shunt. They did not note evidence to suggest infection yesterday either. She does not feel that further emergent intervention is warranted at this time. Patient does have chronic headaches associated with the RESTORATIVE CARE 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. They will continue forward with the nuclear medicine scan. Patient continues to have headache, it is improved after Toradol and acetaminophen. I have asked that he follow-up with his primary care in the next 48 hours with recheck of his creatinine. I spoke with the patient's mother on multiple occasions at his request /([phone]). Strict return precautions were given. Patient was transferred back to care bed. All his questions and concerns were addressed and he is in agreement this plan. HPI General Mode of arrival: EMS . Date/Time Provider Initiated Documentation: 12/07/19 19:20 . Limitations to Documentation: no limitations . Information obtained by: patient, EMS, RN notes reviewed and old records revi ewed . History of Present Illness 49 year old M presents to the emergency department with the chief complaint of headache, described as severe, with intensity rated at 8. Quality is described as aching, and is localized to the head. Patient reports no radiation. Patient started experiencing this week(s) and it has been constant. Medication improves symptom(s), No exacerbating factors reported . Patient notes headaches and rash (staf at care bed noted erythema around shunt); denies chest pain, cough, fever/chills, loss of appetite, nausea/vomiting, seizure, shortness of breath, syncope and weakness. Patient did receive the following treatments prior to arrival, none Related Data Home Medications Medication Instructions Recorded Confirmed levothyroxine 25 mcg tablet 25 mcg PO DAILY tab 01/27/19 12/07/19 metoprolol succinate 25 mg 25 mg PO DAILY 01/27/19 12/07/19 tablet,extended release 24 hr rizatriptan 10 mg PO .PRN MIGRAINES PRN 04/02/19 12/07/19 testosterone cypionate 200 mg/mL 200 mg IM Q2W #5 ml 09/12/19 12/07/19 intramuscular oil acetaminophen 500 mg PO Q6H PRN PRN #60 tab 10/11/19 12/07/19 ibuprofen 600 mg PO Q8H PRN PRN #60 tab 10/11/19 12/07/19 amitriptyline 150 mg PO QHS 10/26/19 12/07/19 Latuda 40 mg PO HS 11/29/19 12/07/19 benztropine 0.5 mg PO QHS 12/01/19 12/07/19 gabapentin 300 mg PO DAILY 12/01/19 12/07/19 gemfibrozil [Lopid] 600 mg PO BID 12/01/19 12/07/19 sertraline 100 mg PO DAILY 12/01/19 12/07/19 topiramate 25 mg PO BID 12/01/19 12/07/19 Previous Rx's Medication Instructions Recorded testosterone cypionate 200 mg/mL 200 mg IM Q2W #5 ml 09/12/19 intramuscular oil acetaminophen 500 mg PO Q6H PRN PRN #60 tab 10/11/19 ibuprofen 600 mg PO Q8H PRN PRN #60 tab 10/11/19 Allergies Allergy/AdvReac Type Severity Reaction Status Date / Time Penicillins Allergy Severe Anaphylaxsi Verified 12/07/19 19:34 s vancomycin Allergy Severe Skin Rash Verified 12/07/19 19:34 latex Allergy Intermediate hives with Verified 12/07/19 19:34 latex powdered gloves General Stated Complaint: GenMedical GLO: 3 Review of Systems Constitutional Constitutional: Reports as per HPI, Denies chills, Reports fatigue, Denies fever(s), Denies frequent falls, Reports headache(s), Denies snoring and Denies weakness Eyes Eyes: Reports as per HPI, Denies blurry vision and Denies change in vision ENT Ears, Nose, Mouth, and Throat: Denies vertigo, Reports headache(s) and Denies neck pain Cardiovascular Cardiovascular: Reports as per HPI, Denies chest pain, Denies lightheadedness, Denies radiating jaw, neck or arm pain, Denies dyspnea and Denies dyspnea on exertion Respiratory Respiratory: Reports as per HPI, Denies chest congestion, Denies cough, Denies dyspnea, Denies dyspnea on exertion, Denies snoring, Denies stridor and Denies wheezing Gastrointestinal Gastrointestinal: Reports as per HPI, Denies abdominal pain, Denies change in bowel habits, Denies nausea and Denies vomiting Genitourinary Genitourinary: Reports system reviewed and no additional complaints, except as documented (denies change in urinary habits) Musculoskeletal Musculoskeletal: Reports as per HPI, Denies back pain, Denies myalgias, Denies muscle cramps, Denies neck pain and Denies numbness Integumentary/Breasts Skin/Breast: Reports as per HPI and Reports erythema Neurologic Neurologic: Reports as per HPI, Denies abnormal movements, Denies abnormal speech, Denies behavioral changes, Denies confusion, Denies vertigo, Denies frequent falls, Reports headache(s), Denies localized weakness, Denies numbness, Denies sensory deficit and Denies weakness Psychiatric Psychiatric: Denies behavioral changes and Denies confusion Endocrine Endocrine: Reports fatigue Allergic/Immunologic Allergic/Immunologic: Denies wheezing PFSH Medical History Asymptomatic microscopic hematuria Chronic headaches Cognitive developmental delay CRI (chronic renal insufficiency) Depression Dyspepsia 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 is patent Hypogonadism Hypothyroid Neck pain Pseudoseizures Sleep apnea central per report; not compliant with CPAP/biPAP Tubular adenoma of colon Surgical History Hx of colonoscopy Intracranial shunt with several revisions Per pt. is patent S/P carpal tunnel release right S/P cholecystectomy Social History Smoking/Tobacco Use Status: Never Alcohol Intake: never Drug use: Never Substance use type: does not use Household members: spouse and children Number of Children: 3 current occupation: [employer], [employer] Current gender identity: male What is your relationship status?: Panel score (0-1 are the most socially isolated patients): 1 Seatbelt use: always Do you feel safe at home: Yes Do you feel safe in your relationship?: Yes Exam Const General: cooperative, healthy appearing, comfortable, no acute distress, well developed and well groomed Nutritional Appearance: average body habitus and well nourished Orientation: alert, awake and oriented x3 HENMT Head: normal to inspection, no palpable skull fracture, normocephalic and atraumatic Head images: 1. area of discomfort at shunt site. NO erythema, warmth, drainage. Tender to palpation. No fluctuance. Soft. Small amount of swelling. Ears: hearing grossly normal bilaterally, external ears normal and TM's normal bilaterally General nose exam: external nose normal Mouth: oral mucosae normal and moist mucous membranes Throat: posterior oropharynx normal Eyes Alignment and Position: alignment abnormal right (baseline for patient, [facility] from previous visits) exotropia Periorbital: periorbital findings normal Eyelids: eyelids normal Sclera: sclerae normal Cornea: corneas normal Pupils: PERRL EOM: EOM intact bilaterally Neck Neck: normal visual inspection, full ROM, no lymphadenopathy and no meningeal signs Resp Effort & Inspection: normal respiratory effort, able to speak in complete se ntences and no respiratory distress Auscultation: clear to auscultation bilaterally, no rales, no rhonchi and no wheezes Cardio Rate: regular rate Rhythm: regular rhythm Heart Sounds: S1 normal and S2 normal GI Inspection: normal to inspection and non-distended Palpation: soft, no hepatosplenomegaly, not firm, no guarding, not rigid and nontender Percussion: normal to percussion Auscultation: normal bowel sounds Back/Spine/Pelvis Cervical Spine: normal cervical lordosis and cervical ROM normal Skin General skin exam: no rashes or lesions noted Neuro General: patient alert, patient awake and patient oriented x3 Cranial Nerves: CN's II-XI intact bilaterally Cognition: normal cognition Speech: speech normal Gait: normal gait Motor: muscle tone normal throughout, strength 5/5 throughout, no pronator drift, no movement abnormalities noted and no fasciculations Sensory Exam: no sensory deficits noted Coordination: [id number] test normal and [id number]-[id number] test normal Extrem General: normal to inspection, capillary refill normal, no pedal edema and no calf tenderness Psych Appearance: grossly normal and well kempt Mental Status: mental status grossly normal Speech and Movement: speech and movement normal Course Vital Signs Vital signs: Vital Signs Temperature 36.7 C 12/07/19 19: Pulse 87 12/07/19 19:18 Respiratory Rate 20 12/07/19 19:18 Blood Pressure 134/84 12/07/19 19:18 Pulse Oximetry 98 12/07/19 19:18 Temperature 36.7 C 12/07/19 19:18 Temperature Source Tympanic 12/07/19 19: Pulse 87 12/07/19 19:18 Respiratory Rate 20 12/07/19 19:18 Blood Pressure 134/84 12/07/19 19:18 Pulse Oximetry 98 12/07/19 19:18 Oxygen Delivery Method Room Air 12/07/19 19:18 Oxygen Flow Rate 0 12/07/19 19:18 Pain Level 8 12/07/19 19:18
[2019-12-07 19:22] VITALS: RESP 18
--- NOTE | 2019-12-07 19:30 | DI.CT_ITS ---
EXAM: CT HEAD WO CLINICAL HISTORY: ALICEA with RECORDER OF DEEDS shunt. TECHNIQUE: Imaging Protocol: Axial computed tomography images with coronal and sagittal reformatted images were created and reviewed COMPARISON: CT CT HEAD CERVICAL SPINE WO from 12/01/2019 FINDINGS: The examination is limited due to patient motion artifact. Ventricles and Extra axial spaces: There is a stable size of the ventricles. No enlargement of the v entricles is seen. There is a right sided ventriculoperitoneal shunt with the tip in the left fronta l horn. Hemorrhage: None. Cerebral parenchyma: Normal. Midline shift: None. Brainstem/Cerebellum: Normal. Calvarium: Prior right craniotomy. Visualized Paranasal sinuses/Mastoids: Clear. Soft Tissues: Unremarkable. IMPRESSION: No acute intracranial process.Stable slit like configuration of the ventricles. RADIATION DOSE DELIVERED: 702.37mGy.cm Total DLP DATA REPOSITORY: All CT scans at this facility are submitted to the National Radiology Data Registry (NRDR) Dose Index Registry (DIR) with the [employer] (A[employer]). RADIATION OPTIMIZATION: All CT scans at this facility use at least one of these dose optimization te chniques: automated exposure control; mA and/or kV adjustment per patient size (includes targeted exa ms where dose is matched to clinical indication); or iterative reconstruction.
[2019-12-07] MEDS: Normal Saline 1,000 ML 150 ML IV (20:02)
[2019-12-07] MEDS: ACETAMINOPHEN 1,000 MG/100 ML BTL 400 MG IVPB (20:02)
[2019-12-07] MEDS: Ketorolac 30 MG/ML VIAL IVP (20:02)
[2019-12-07 20:09] LABS: Abs Immature Grans 0.02 10^3/uL (0.0-0.06); Absolute Basophil Count 0.06 10^3/uL (0.0-0.2); Absolute Lymphocyte Count 3.12 10^3/uL (1.2-3.4); Absolute Monocyte Count 0.66 10^3/uL (0.1-0.8); Absolute Neutrophil Count 3.99 10^3/uL (1.2-6.7); Basophils % 0.7; Eosinophils % 2.5; HCT 48.6 % (40.0-50.0); HGB 16.8 g/dL (13.5-17.5); Immature Grans % 0.2; Lymphocytes % 38.8; MCH 31.3 pg (27.0-33.0); MCHC 34.6 % (32.0-36.0); MCV 90.7 fL (80-95); MPV 9.1 fL (8.0-11.0); Monocytes % 8.2; Neutrophils % 49.6; Nucleated RBC 0 %; Platelet Count 334 10^3/uL (130-400); RBC 5.36 10^6/uL (4.36-5.78); RDW 12.4 % (11.8-14.1); RDW-SD 40.5 fL; WBC 8.05 10^3/uL (4.4-10.8)
[2019-12-07 20:12] LABS: Lactate 1.4 mmol/L (0.6-1.4)
[2019-12-07 20:35] LABS: ALT 33 U/L (16-63); AST 17 U/L (15-37); Albumin 4.2 g/dL (3.4-5.0); Alkaline Phosphatase 58 U/L (46-116); Anion Gap 12.5 mmol/L (3-11); BUN 20 mg/dL (7-18); Bilirubin, Total 0.4 mg/dL (0.2-1.0); CO2 22.5 mmol/L (21.0-32.0); CREATININE 1.52 mg/dL (0.70-1.30); Calcium 9.1 mg/dL (8.5-10.1); Chloride 104 mmol/L (98-107); Glucose 112 mg/dL (74-106); Potassium 3.7 mmol/L (3.5-5.1); Sodium 139 mmol/L (136-145)
[2019-12-07 20:59] LABS: ESR 9 mm/hr (0-15)
[2019-12-07] MEDS: Lactated Ringers 1,000 ML 1000 ML IV (21:37)
[2019-12-07 22:44] VITALS: BP 117/87; PULSE 78; RESP 20; O2SAT 97
--- NOTE | 2019-12-08 16:04 | DI.VRAD_ITS ---
PROCEDURE INFORMATION: Exam: CT Head Without Contrast Exam date and time: 12/07/2019 7:57 PM Age: 49 years old Clinical indication: Pain; Headache not specified; Prior surgery; Additional info: ALICEA, w/ HX shunt TECHNIQUE: Imaging protocol: Computed tomography of the head without contrast. COMPARISON: CT HEAD CERVICAL SPINE WO 12/01/2019 9:03 PM FINDINGS: Tubes, catheters and devices: Right frontal approach ventriculostomy catheter with catheter tip in the left frontal horn. Brain: No evidence for acute transcortical infarct. No mass effect or midline shift. No extra-axial collection. No acute intracranial hemorrhage. Basal cisterns are patent. Cerebral ventricles: Stable slit-like configuration of the ventricles. Bones/joints: Right craniotomy changes. Paranasal sinuses: Visualized sinuses are unremarkable. No fluid levels. Mastoid air cells: Visualized mastoid air cells are well aerated. Soft tissues: Unremarkable. IMPRESSION: 1. Right frontal approach ventriculostomy catheter with catheter tip in the left frontal horn. Stable slit-like configuration of the ventricles. 2. No acute intracranial hemorrhage or mass effect. Dictated and Authenticated by: Juan Manuel Vann MD. Ordering:LANCE Dexter MD
== END 2019-12-07 22:57 | disposition home or self-care (01) ==
PROVIDERS: Emergency Provider Physician Assistant; PCP Nurse Practitioner Family
DX: E86.0 Dehydration (principal); R94.4 Abnormal results of kidney function studies; R51.9 Headache, unspecified; G89.29 Other chronic pain; G91.9 Hydrocephalus, unspecified; Z98.2 Presence of cerebrospinal fluid drainage device; I10 Essential (primary) hypertension
CPT/HCPCS: 36415; 80053; 85652; 96361; 96365; 96375; 99284; 70450; 83605; 85025; 99285; J0131; J1885

== ENCOUNTER 2019-12-20 02:25 | Outpatient (CLI) | payer MEDICARE, MEDICAID, SELFPAY ==
[2019-12-20 20:03] LABS: PSA, Screening 0.3 ng/mL (0.0-2.5)
[2019-12-23 23:49] LABS: Testosterone, Total 603 ng/dL (240-950)
== END 2019-12-20 02:45 ==
PROVIDERS: PCP Nurse Practitioner Family; Visit Provider Nurse Practitioner Gerontology
DX: E29.1 Testicular hypofunction (principal); Z12.5 Encounter for screening for malignant neoplasm of prostate
CPT/HCPCS: 36415; 84153; 84403

== ENCOUNTER → 2020-03-06 09:29 | Outpatient (BNVA) | payer MEDICARE, MEDICAID, SELFPAY | PROVIDERS: PCP Nurse Practitioner Family; Visit Provider Nurse Practitioner Gerontology | DX: E29.1 Testicular hypofunction (principal); Z12.5 Encounter for screening for malignant neoplasm of prostate | CPT/HCPCS: 99213 ==

== ENCOUNTER 2020-03-06 14:44 | Outpatient (REF) | payer MEDICARE, MEDICAID, SELFPAY ==
[2020-03-06 17:56] LABS: PSA, Screening 0.3 ng/mL (0.0-2.5)
[2020-03-10 16:28] LABS: Testosterone, Total 330 ng/dL (240-950)
== END 2020-03-06 15:04 ==
LOC: LBN 14:44
PROVIDERS: PCP Nurse Practitioner Family; Visit Provider Nurse Practitioner Gerontology
DX: E29.1 Testicular hypofunction (principal); N40.0 Benign prostatic hyperplasia without lower urinary tract symptoms; Z12.5 Encounter for screening for malignant neoplasm of prostate
CPT/HCPCS: 84153; 84403

== ENCOUNTER 2020-03-13 12:05 | Outpatient (CLI) | payer MEDICARE, MEDICAID, SELFPAY ==
--- NOTE | 2020-03-13 | DI.RAD_ITS ---
EXAM: XR SHUNT SERIES CLINICAL HISTORY: ABD PAIN, S/P PULLEY WORKER SHUNT, Z98.2,? SHUNT TUBING KINKING OR BREAK. TECHNIQUE: 2D digital imaging was performed. COMPARISON: CR,XR XR SHUNT SERIES from 12/01/2019 Findings: LUNGS: Clear. No pleural abnormality seen. HEART: Normal. MEDIASTINUM: Normal. BOWEL GAS PATTERN: Nondistended bowel loops. No air-fluid levels seen. ABNORMAL COLLECTIONS OF AIR: No pneumoperitoneum. CALCIFICATIONS: None. SHUNT CATHETER: Visualized portions of shunt catheter from the level of the skull to the level of the abdomen is continuous without evidence of kink or break. OTHER FINDINGS: Surgical clips are seen in the abdomen. IMPRESSION: 1. Visualized portions of the shunt catheter shows no evidence of kink or break. 2. No acute pulmonary findings. DATA REPOSITORY: RADIATION DOSE DELIVERED:
== END 2020-03-13 12:25 ==
PROVIDERS: PCP Nurse Practitioner Family; Visit Provider Nurse Practitioner
DX: Z98.2 Presence of cerebrospinal fluid drainage device (principal); R10.9 Unspecified abdominal pain
CPT/HCPCS: 70360; 71045; 72050; 74018

== ENCOUNTER → 2020-06-12 08:50 | Outpatient (BNVA) | payer MEDICARE, MEDICAID, SELFPAY | PROVIDERS: PCP Nurse Practitioner Family; Referring Provider Nurse Practitioner Family; Visit Provider Nurse Practitioner Gerontology | DX: E29.1 Testicular hypofunction (principal) | CPT/HCPCS: 99214 ==

== ENCOUNTER → 2020-07-09 09:00 | Outpatient (BNVA) | payer MEDICARE, MEDICAID, SELFPAY | PROVIDERS: PCP Nurse Practitioner Family; Referring Provider Nurse Practitioner Family; Visit Provider Nurse Practitioner Adult Health | DX: G43.109 Migraine with aura, not intractable, without status migrainosus (principal); G91.8 Other hydrocephalus; G47.33 Obstructive sleep apnea (adult) (pediatric) | CPT/HCPCS: 99214; 99215; G2212 ==

== ENCOUNTER 2020-08-15 10:27 | Emergency (ER) | payer MEDICARE, MEDICAID, SELFPAY ==
[2020-08-15 10:30] VITALS: BP 131/80; PULSE 105; RESP 18; TEMP 36.8; O2SAT 97
--- NOTE | 2020-08-15 10:38 | ED.GENADUL_ITS ---
Discharge Plan Disposition Patient Disposition: HOME Condition: Stable Discharge Details Clinical Impression: Right ankle sprain Primary Care Provider: Rosario Varela ED Provider: Caro Friedman Home Meds and New Rx's Prescriptions: Continued metoprolol succinate 25 mg tablet extended release 24 hr 25 mg PO DAILY RF: 0 topiramate 25 mg tablet See Rx Instructions PO BID RF: 0 (DME) blunt needle, disposable 18 x 1 1/2 needle See Rx Instructions .ROUTE .MEDSUPPLY Qty: 100 RF: 0 (DME) EasyPoint Needle 25 gauge x 1 1/2 needle See Rx Instructions .ROUTE .MEDSUPPLY Qty: 50 RF: 0 (DME) syringe (disposable) [BD Luer-Kayla Syringe] 5 mL syringe See Rx Instructions .ROUTE .MEDSUPPLY Qty: 100 RF: 0 testosterone cypionate 200 mg/mL oil 200 mg IM Q2W Qty: 5 RF: 1 Latuda 40 mg tablet 40 mg PO DAILY RF: 0 ketoconazole 2 % cream 1 applic topical DAILY RF: 0 risperidone 0.5 mg tablet 0.5 mg PO DAILY RF: 0 sucralfate 1 gram tablet 1 g PO BID RF: 0 amitriptyline 25 mg tablet 25 mg PO QHS RF: 0 gabapentin 300 mg capsule 300 mg PO DAILY RF: 0 carbamazepine 200 mg tablet 200 mg PO .3 tabs am 2 tabs pm RF: 0 meloxicam 15 mg tablet 15 mg PO DAILY RF: 0 levothyroxine 25 mcg tablet 25 mcg PO DAILY RF: 0 rizatriptan 10 mg Tablet 10 mg PO .PRN MIGRAINES PRNRF: 0 acetaminophen 500 mg tablet 500 mg PO Q6H PRN PRN (Reason: pain) Qty: 60 RF: 3 ibuprofen 600 mg tablet 600 mg PO Q8H PRN PRN (Reason: pain) Qty: 60 RF: 0 amitriptyline 100 mg tablet 100 mg PO QHS RF: 0 benztropine 0.5 mg tablet 0.5 mg PO QHS RF: 0 sertraline 100 mg tablet 100 mg PO DAILY RF: 0 gemfibrozil [Lopid] 600 mg Tablet 600 mg PO BID RF: 0 Discharge Instructions Instructions: Ankle Sprain (ED) Additional Instructions: Rest, ice, compression, elevation. Please take Tylenol or Ibuprofen with food every 4-6 hours as needed for pain and swelling. Wear splint as needed for comfort. Follow up with primary care provider in 3-5 days. Return to ED sooner if any worsening or concerns. Increase oral fluids. If continued pain problems after 4 to 6 weeks may follow-up with Ortho as needed X-ray showed no acute fractures. Referrals: Rosario Varela [Primary Care Provider] - Nael Gillette MD [ [facility] ST[facility]FF [facility]YSICIAN] - Discharge Data Discharge Date/Time-TO BE ENTERED AT DEPARTURE: 08/15/20 11:39 Medical Decision Making 49-year-old male presents to the ER chief complaint of right ankle pain and swelling status post mechanical fall on Thursday night. Patient states that he stepped into a hole, sustaining a inversion twisting type injury. Does have some lateral malleolus tenderness on exam. CMS intact distally. No complaints of knee pain or other complaints at this time. Denies any LOC no neck pain. Was taking Tylenol ibuprofen did not take any prior to arrival. Offered pain relief patient declined at this time. EXAM: XR ANKLE RT COMPLETE CLINICAL HISTORY: R/O fracture. TECHNIQUE: 2D digital imaging was performed. COMPARISON: No exams were available for comparison FINDINGS: There is mild soft tissue swelling laterally. There is a small accessory ossicle subjacent to both malleoli. This is corticated subjacent to the lateral malleolus. Subjacent to the medial malleolus is a small calcific density which is either an accessory ossicle or possibly a cyst small nondisplaced avulsion injury at this location although I note that there is no obvious soft tissue swelling over the medial malleolus. Talar dome is intact. There is no widening of the mortise. Subtalar joint appears unremarkable. No evidence of avulsion injury off the dorsal talus nor fracture of the anterior process of the calcaneus. There is no osseous tarsal coalition. IMPRESSION: Subtle findings as above. Correlation with any pain over the medial malleolus recommended. Discussed ankle sprain home care rest ice compression elevation, patient was given a walking boot and crutches upon discharge. Patient verbalized understanding remained hemodynamically stable throughout stay. HPI General Mode of arrival: ambulatory . Date/Time Provider Initiated Documentation: 08/15/20 10:35 . Limitations to Documentation: no limitations . Information obtained by: patient . HPI Narrative: 49-year-old male presents to the ER chief complaint of right ankle pain and swelling status post mechanical fall on Thursday night. Patient states that he stepped into a hole, sustaining a inversion twisting type injury. Does have some lateral malleolus tenderness on exam. CMS intact distally. No complaints of knee pain or other complaints at this time. Denies any LOC no neck pain. Was taking Tylenol ibuprofen did not take any prior to arrival. Offered pain relief patient declined at this time. Related Data Home Medications Medication Instructions Recorded Confirmed levothyroxine 25 mcg tablet 25 mcg PO DAILY tab 01/27/19 08/15/20 metoprolol succinate 25 mg 25 mg PO DAILY 01/27/19 08/15/20 tablet,extended release 24 hr rizatriptan 10 mg PO .PRN MIGRAINES PRN 04/02/19 08/15/20 acetaminophen 500 mg PO Q6H PRN PRN #60 tab 10/11/19 08/15/20 ibuprofen 600 mg PO Q8H PRN PRN #60 tab 10/11/19 08/15/20 amitriptyline 100 mg PO QHS 10/26/19 08/15/20 benztropine 0.5 mg PO QHS 12/01/19 08/15/20 gemfibrozil [Lopid] 600 mg PO BID 12/01/19 08/15/20 sertraline 100 mg PO DAILY 12/01/19 08/15/20 blunt needle, disposable 18 x 1 #100 ea 12/08/19 06/12/20 1/2 safety needles 25 gauge x 1 1/2 #50 ea 12/08/19 06/12/20 syringe (disposable) 5 mL #100 ea 12/08/19 06/12/20 testosterone cypionate 200 mg/mL 200 mg IM Q2W #5 ml 03/12/20 08/15/20 intramuscular oil amitriptyline 25 mg tablet 25 mg PO QHS 05/10/20 06/12/20 ketoconazole 2 % topical cream 1 applic TOPICAL DAILY 05/10/20 08/15/20 lurasidone 40 mg tablet 40 mg PO DAILY 05/10/20 08/15/20 risperidone 0.5 mg tablet 0.5 mg PO DAILY 05/10/20 06/12/20 sucralfate 1 gram tablet 1 g PO BID 05/10/20 08/15/20 topiramate 25 mg tablet See Rx Instructions PO BID 07/09/20 08/15/20 carbamazepine 200 mg tablet 200 mg PO .3 tabs am 2 tabs pm tab 07/10/20 gabapentin 300 mg capsule 300 mg PO DAILY 07/10/20 08/15/20 meloxicam 15 mg tablet 15 mg PO DAILY 07/10/20 08/15/20 Previous Rx's Medication Instructions Recorded acetaminophen 500 mg PO Q6H PRN PRN #60 tab 10/11/19 ibuprofen 600 mg PO Q8H PRN PRN #60 tab 10/11/19 blunt needle, disposable 18 x 1 #100 ea 12/08/19 1/2 safety needles 25 gauge x 1 1/2 #50 ea 12/08/19 syringe (disposable) 5 mL #100 ea 12/08/19 testosterone cypionate 200 mg/mL 200 mg IM Q2W #5 ml 03/12/20 intramuscular oil Allergies Allergy/AdvReac Type Severity Reaction Status Date / Time Penicillins Allergy Severe Anaphylaxsi Verified 08/15/20 10:35 s vancomycin Allergy Severe Skin Rash Verified 08/15/20 10:35 latex Allergy Intermediate hives with Verified 08/15/20 10:35 latex powdered gloves General Stated Complaint: Orthopedic GLO: 4 Review of Systems All systems reviewed & are unremarkable except as noted in HPI and below Musculoskeletal Musculoskeletal: Reports system reviewed and no additional complaints, except as documented, Reports arthralgias and Reports joint swelling (Left ankle) PFSH Medical History Asymptomatic microscopic hematuria Chronic headaches Cognitive developmental delay CRI (chronic renal insufficiency) Depression Dyspepsia 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 is patent Hydrocephalus associated with congenital aqueduct stenosis Hypogonadism Hypothyroid Memory impairment Neck pain Persistent headaches Pseudoseizures Seizures Sleep apnea central per report; wearing CPAP Tubular adenoma of colon Surgical History Hx of colonoscopy Hx of shoulder surgery Intracranial shunt with several revisions Per pt. is patent S/P carpal tunnel release right S/P cholecystectomy Social History Smoking/Tobacco Use Status: Never Smoking risk assessment performed?: Yes Alcohol Intake: never Drug use: Never Substance use type: does not use Household members: spouse and children Number of Children: 3 current occupation: [employer] Current gender identity: male What is your relationship status?: Panel score (0-1 are the most socially isolated patients): 1 Seatbelt use: always Do you feel safe at home: Yes Do you feel safe in your relationship?: Yes Exam Extrem General: full ROM, capillary refill normal and normal exam except as noted Left lower extremity: ankle Details: normal to inspection, tenderness and swell ing Details: laterally (Malleolus and foot); no warmth, no abrasions and no lacerations and foot Course Vital Signs Vital signs: Vital Signs Temperature 36.8 C 08/15/20 10:30 Pulse 105 H 08/15/20 10:30 Respiratory Rate 18 08/15/20 10:30 Blood Pressure 131/80 08/15/20 10:30 Pulse Oximetry 97 08/15/20 10:30 Temperature 36.8 C 08/15/20 10:30 Temperature Source Skin 08/15/20 10:30 Pulse 105 H 08/15/20 10:30 Respiratory Rate 18 08/15/20 10:30 Respiratory Effort 08/15/20 10:37 Blood Pressure 131/80 08/15/20 10:30 Blood Pressure Position Sitting 08/15/20 10:30 Pulse Oximetry 97 08/15/20 10:30 Oxygen Delivery Method Room Air 08/15/20 10:30 Oxygen Flow Rate 0 08/15/20 10:30 Pain Level 9 08/15/20 10:30 Comment 08/15/20 10:30
--- NOTE | 2020-08-15 10:52 | DI.RAD_ITS ---
Exam(s) XR ANKLE RT COMPLETE EXAM: XR ANKLE RT COMPLETE CLINICAL HISTORY: R/O fracture. TECHNIQUE: 2D digital imaging was performed. COMPARISON: No exams were available for comparison FINDINGS: There is mild soft tissue swelling laterally. There is a small accessory ossicle subjacent to both m alleoli. This is corticated subjacent to the lateral malleolus. Subjacent to the medial malleolus i s a small calcific density which is either an accessory ossicle or possibly a cyst small nondisplaced avulsion injury at this location although I note that there is no obvious soft tissue swelling over the medial malleolus. Talar dome is intact. There is no widening of the mortise. Subtalar joint ap pears unremarkable. No evidence of avulsion injury off the dorsal talus nor fracture of the anterior process of the calcaneus. There is no osseous tarsal coalition. IMPRESSION: Subtle findings as above. Correlation with any pain over the medial malleolus recommended. DATA REPOSITORY: RADIATION DOSE DELIVERED:
== END 2020-08-15 11:39 | disposition home or self-care (01) ==
PROVIDERS: Emergency Provider Registered Nurse Emergency; PCP Nurse Practitioner Family
DX: S93.491A Sprain of other ligament of right ankle, initial encounter (principal); W17.2XXA Fall into hole, initial encounter; X58.XXXA Exposure to other specified factors, initial encounter; Y93.K1 Activity, walking an animal
CPT/HCPCS: 99283; 73610

== ENCOUNTER 2020-08-30 13:55 | Outpatient (REF) | payer MEDICARE, MEDICAID, SELFPAY ==
[2020-09-04 12:26] LABS: Testosterone, Total 776 ng/dL (240-950)
== END 2020-08-30 13:56 | disposition home or self-care (01) ==
LOC: NCHCN 13:55
PROVIDERS: Nurse Practitioner Gerontology; PCP Nurse Practitioner Family; Visit Provider Nurse Practitioner Family
DX: E29.1 Testicular hypofunction (principal)
CPT/HCPCS: 84403

== ENCOUNTER → 2020-08-30 13:56 | Outpatient (BNVA) | payer MEDICARE, MEDICAID, SELFPAY | PROVIDERS: PCP Nurse Practitioner Family; Referring Provider Nurse Practitioner Family; Visit Provider Nurse Practitioner Adult Health | DX: R51.9 Headache, unspecified (principal); G89.29 Other chronic pain; Z98.2 Presence of cerebrospinal fluid drainage device | CPT/HCPCS: 99213; 99215 ==

== ENCOUNTER → 2020-09-11 14:47 | Outpatient (BNVA) | payer MEDICARE, MEDICAID, SELFPAY | PROVIDERS: PCP Nurse Practitioner Family; Referring Provider Nurse Practitioner Family; Visit Provider Nurse Practitioner Gerontology | DX: E29.1 Testicular hypofunction (principal) | CPT/HCPCS: 99214 ==

== ENCOUNTER 2020-09-23 10:15 | Emergency (ER) | payer MEDICARE, MEDICAID, SELFPAY ==
[2020-09-23 10:39] VITALS: BP 146/102; PULSE 121; RESP 18; TEMP 36.8; O2SAT 95
--- NOTE | 2020-09-23 10:45 | W.ED.GENAD ---
Discharge Plan Disposition Patient Disposition: HOME Condition: Improving Discharge Details Clinical Impression: Odontalgia Primary Care Provider: Rosario Varela ED Provider: Memo Rodriguez Home Meds and New Rx's Prescriptions: New clindamycin HCl 300 mg capsule 300 mg PO TID 10 Days Qty: 30 RF: 0 Continued metoprolol succinate 25 mg tablet extended release 24 hr 25 mg PO DAILY RF: 0 topiramate [Topamax] 100 mg tablet 100 mg PO QHS Qty: 30 RF: 3 (DME) blunt needle, disposable 18 x 1 1/2 needle See Rx Instructions .ROUTE .MEDSUPPLY Qty: 100 RF: 0 (DME) EasyPoint Needle 25 gauge x 1 1/2 needle See Rx Instructions .ROUTE .MEDSUPPLY Qty: 50 RF: 0 (DME) syringe (disposable) [BD Luer-Kayla Syringe] 5 mL syringe See Rx Instructions .ROUTE .MEDSUPPLY Qty: 100 RF: 0 testosterone cypionate 200 mg/mL oil 200 mg IM Q2W Qty: 5 RF: 1 Latuda 40 mg tablet 40 mg PO DAILY RF: 0 sucralfate 1 gram tablet 1 g PO BID RF: 0 meloxicam 15 mg tablet 15 mg PO DAILY RF: 0 levothyroxine 25 mcg tablet 25 mcg PO DAILY RF: 0 rizatriptan 10 mg Tablet 10 mg PO .PRN MIGRAINES PRNRF: 0 acetaminophen 500 mg tablet 500 mg PO Q6H PRN PRN (Reason: pain) Qty: 60 RF: 3 ibuprofen 600 mg tablet 600 mg PO Q8H PRN PRN (Reason: pain) Qty: 60 RF: 0 amitriptyline 100 mg tablet 100 mg PO QHS RF: 0 benztropine 0.5 mg tablet 0.5 mg PO QHS RF: 0 sertraline 100 mg tablet 100 mg PO DAILY RF: 0 gemfibrozil [Lopid] 600 mg Tablet 600 mg PO BID RF: 0 Discharge Instructions Instructions: Toothache (ED) Additional Instructions: We will ask our care management team to help expedite your follow-up at [facility]. Continue regular medications. May use ibuprofen as needed for pain with the provided hydrocodone if needed for severe or breakthrough pain. No additional Tylenol, alcohol or driving with this medication. Take clindamycin as prescribed. Recommend you take an [id number] probiotic as we discussed while on this medication. Return to the ER for any acute concerns. Medical Decision Making 49-year-old male presents with history of poor dentition, chronic and recurrent dental infections, with plan for outpatient follow-up and extractions at [facility] in November. He now has day 2 right mandibular discomfort and mild swelling present on exam. No evidence of focal abscess. He is eating, drinking, no change to voice. Will place him on clindamycin. Small number of analgesics for home. He will follow-up with [facility] as planned. HPI General Mode of arrival: ambulatory. Date/Time Provider Initiated Documentation: 09/23/20 10:16. Limitations to Documentation: no limitations. Information obtained by: patient. History of Present Illness 49 year old M presents to the emergency department with the chief complaint of Dental pain right lower, described as moderate and similar to prior episodes, Quality is described as dull and constant, and is localized to the face. Patient reports no radiation. Patient started experiencing this hour(s) and it has been constant. No relieving factors improve symptom(s), No exacerbating factors reported . Patient notes denies fever/chills and syncope. Patient did receive the following treatments prior to arrival, none Related Data Home Medications Medication Instructions Recorded Confirmed levothyroxine 25 mcg tablet 25 mcg PO DAILY tab 01/27/19 09/11/20 metoprolol succinate 25 mg 25 mg PO DAILY 01/27/19 09/11/20 tablet,extended release 24 hr rizatriptan 10 mg PO .PRN MIGRAINES PRN 04/02/19 09/11/20 acetaminophen 500 mg PO Q6H PRN PRN #60 tab 10/11/19 09/11/20 ibuprofen 600 mg PO Q8H PRN PRN #60 tab 10/11/19 09/11/20 amitriptyline 100 mg PO QHS 10/26/19 09/11/20 benztropine 0.5 mg PO QHS 12/01/19 09/11/20 gemfibrozil [Lopid] 600 mg PO BID 12/01/19 09/11/20 sertraline 100 mg PO DAILY 12/01/19 09/11/20 blunt needle, disposable 18 x 1 #100 ea 12/08/19 09/11/20 1/2 safety needles 25 gauge x 1 1/2 #50 ea 12/08/19 09/11/20 syringe (disposable) 5 mL #100 ea 12/08/19 09/11/20 testosterone cypionate 200 mg/mL 200 mg IM Q2W #5 ml 03/12/20 09/11/20 intramuscular oil lurasidone 40 mg tablet 40 mg PO DAILY 05/10/20 09/11/20 sucralfate 1 gram tablet 1 g PO BID 05/10/20 09/11/20 meloxicam 15 mg tablet 15 mg PO DAILY 07/10/20 09/11/20 topiramate 100 mg tablet 100 mg PO QHS #30 tab 08/30/20 09/11/20 clindamycin HCl 300 mg PO TID 10 Days #30 cap 09/23/20 Previous Rx's Medication Instructions Recorded acetaminophen 500 mg PO Q6H PRN PRN #60 tab 10/11/19 ibuprofen 600 mg PO Q8H PRN PRN #60 tab 10/11/19 blunt needle, disposable 18 x 1 #100 ea 12/08/19 1/2 safety needles 25 gauge x 1 1/2 #50 ea 12/08/19 syringe (disposable) 5 mL #100 ea 12/08/19 testosterone cypionate 200 mg/mL 200 mg IM Q2W #5 ml 03/12/20 intramuscular oil topiramate 100 mg tablet 100 mg PO QHS #30 tab 08/30/20 clindamycin HCl 300 mg PO TID 10 Days #30 cap 09/23/20 Allergies Allergy/AdvReac Type Severity Reaction Status Date / Time Penicillins Allergy Severe Anaphylaxsi Verified 09/23/20 10:47 s vancomycin Allergy Severe Skin Rash Verified 09/23/20 10:47 latex Allergy Intermediate hives with Verified 09/23/20 10:47 latex powdered gloves General GLO: 4 Review of Systems Narrative: 6 systems reviewed and otherwise negative. Has follow-up at [facility]. 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 is patent Hydrocephalus associated with congenital aqueduct stenosis Hypogonadism Hypothyroid Memory impairment Neck pain Persistent headaches Pseudoseizures Seizures Sleep apnea central per report; wearing CPAP Tubular adenoma of colon Surgical History Hx of colonoscopy Hx of shoulder surgery Intracranial shunt with several revisions Per pt. is patent S/P carpal tunnel release right S/P cholecystectomy Social History Smoking/Tobacco Use Status: Never Smoking risk assessment performed?: Yes Alcohol Intake: never Drug use: Never Substance use type: does not use Household members: spouse and children Number of Children: 3 current occupation: [employer] Current gender identity: male What is your relationship status?: Panel score (0-1 are the most socially isolated patients): 1 Seatbelt use: always Do you feel safe at home: Yes Do you feel safe in your relationship?: Yes Exam Narrative Exam Narrative: GEN: awake, alert, oriented 3. Pleasant, well groomed, interactive. HEAD: Normocephalic, atraumatic ENT: Mucous membranes moist, oropharynx numerous dental caries, broken and missing teeth. Tender right maxilla. Right neck lateral with palpable [employer] shunt., External ear exam unremarkable EYES: PERRL, EOMI NECK: Full ROM, no ALEX, no menigismus CHEST/RESP: Nontender, clear to auscultation bilateral, no wheeze/rhonchi/rales CARDIOVASCULAR: RRR, no murmur, rub maia. 2+ Rad pulse bilateral ABDOMEN: Soft, nontender, no mass. +Bowel sounds EXT: Full ROM, no edema, no rash Neuro: Grossly normal neurologic exam, conversant, interactive. Psych: Speech fluent, thoughts congruent, affect normal
[2020-09-23] MEDS: Clindamycin 150 MG CAP, 12 CAPS/BTL 450 MG PO (10:52)
--- NOTE | 2020-09-26 11:10 | PDOC.ERCMPRO ---
- If Service Date Differs Date of service: 09/26/20 Time of Service: 11:10 Care Management Progress Note Chapin is seen in the ED for odontalgia. At the request of ED provider, LUDA [place] [facility] help expedite the appointment that Chapin has with them in November. LUDA speaks with Bernice who advises that Chapin was offered earlier appointments and refused them, so the appointment was scheduled for December 21, 2020. Bernice agrees to contact Chapin and to inquire if he now wishes to change the appointment to a sooner date.
== END 2020-09-23 10:59 | disposition home or self-care (01) ==
PROVIDERS: Emergency Provider Emergency Medicine; PCP Nurse Practitioner Family
DX: R68.84 Jaw pain (principal)
CPT/HCPCS: 99283

== ENCOUNTER 2020-10-09 11:15 | Emergency (ER) | payer MEDICARE, MEDICAID, SELFPAY ==
[2020-10-09] VITALS (17 sets, daily range): BP systolic 79–137; BP diastolic 58–91; PULSE 73–97; RESP 9–30; TEMP 36.7; O2SAT 83–99
--- NOTE | 2020-10-09 11:40 | W.ED.GENAD ---
Discharge Plan Disposition Patient Disposition: HOME Condition: Stable Discharge Details Clinical Impression: Vertigo Primary Care Provider: Unknown,Unknown ED Provider: Caro Friedman Meds and New Rx's Prescriptions: New meclizine 25 mg tablet 25 mg PO BID PRN7 Days Qty: 14 RF: 0 No Action metoprolol succinate 25 mg tablet extended release 24 hr 25 mg PO DAILY RF: 0 topiramate [Topamax] 100 mg tablet 100 mg PO QHS Qty: 30 RF: 3 (DME) blunt needle, disposable 18 x 1 1/2 needle See Rx Instructions .ROUTE .MEDSUPPLY Qty: 100 RF: 0 (DME) EasyPoint Needle 25 gauge x 1 1/2 needle See Rx Instructions .ROUTE .MEDSUPPLY Qty: 50 RF: 0 (DME) syringe (disposable) [BD Luer-Kayla Syringe] 5 mL syringe See Rx Instructions .ROUTE .MEDSUPPLY Qty: 100 RF: 0 testosterone cypionate 200 mg/mL oil 200 mg IM Q2W Qty: 5 RF: 1 Latuda 40 mg tablet 40 mg PO DAILY RF: 0 levothyroxine 25 mcg tablet 25 mcg PO DAILY RF: 0 rizatriptan 10 mg Tablet 10 mg PO .PRN MIGRAINES PRNRF: 0 acetaminophen 500 mg tablet 500 mg PO Q6H PRN PRN (Reason: pain) Qty: 60 RF: 3 ibuprofen 600 mg tablet 600 mg PO Q8H PRN PRN (Reason: pain) Qty: 60 RF: 0 amitriptyline 100 mg tablet 100 mg PO QHS RF: 0 benztropine 0.5 mg tablet 0.5 mg PO QHS RF: 0 sertraline 100 mg tablet 100 mg PO DAILY RF: 0 gemfibrozil [Lopid] 600 mg Tablet 600 mg PO BID RF: 0 clindamycin HCl 300 mg capsule 300 mg PO TID RF: 0 omeprazole 20 mg capsule,delayed release(DR/EC) 20 mg PO DAILY RF: 0 Discharge Instructions Instructions: Vertigo (ED) Additional Instructions: Follow up with primary care provider in 3-5 days. Return to ED sooner if any worsening or concerns. Increase oral fluids. Please take Tylenol or Ibuprofen with food every 4-6 hours as needed for pain and swelling. Today the labs and CT results are largely within normal limits and unchanged. Take the meclizine up to twice daily as directed as needed for dizziness. Medical Decision Making 49-year-old male with a past medical history of hydrocephalus with MAKEUP SALES ADVISOR shunt chronic headaches, depression presents with acute onset of dizziness that began this morning. Patient reports that he awoke this morning with dizziness worse with lying flat. She reports room spinning. Upon arrival he reports still feeling dizzy however the room is no longer spinning. He does endorse frontal headache. Denies any fever, or any other associated symptoms this started some mild diarrhea yesterday. He is on clindamycin which he began 2 days ago to prepare for a oral surgery at the end of the month. He does see neurosurgery at [facility] and was last evaluated in April. At this time work-up ordered including CBC, CMP, magnesium, urinalysis 1 L normal saline and meclizine [address] head without contrast ordered. 1244: Discussed CT and lab results with patient who verbalized understanding. Patient is still c/o some dizziness. Will discharge patient with Meclizine prescription and instruct to follow up with PCP. HPI General Mode of arrival: ambulatory. Date/Time Provider Initiated Documentation: 10/09/20 11:16. Limitations to Documentation: no limitations. Information obtained by: patient, RN notes reviewed and old records reviewed. HPI Narrative: 49-year-old male with a past medical history of hydrocephalus with MAKEUP SALES ADVISOR shunt chronic headaches, depression presents with acute onset of dizziness that began this morning. Patient reports that he awoke this morning with dizziness worse with lying flat. She reports room spinning. Upon arrival he reports still feeling dizzy however the room is no longer spinning. He does endorse frontal headache. Denies any fever, or any other associated symptoms this started some mild diarrhea yesterday. He is on clindamycin which he began 2 days ago to prepare for a oral surgery at the end of the month. He does see neurosurgery at [facility] and was last evaluated in April. Related Data Home Medications Medication Instructions Recorded Confirmed levothyroxine 25 mcg tablet 25 mcg PO DAILY tab 01/27/19 10/09/20 metoprolol succinate 25 mg 25 mg PO DAILY 01/27/19 09/11/20 tablet,extended release 24 hr rizatriptan 10 mg PO .PRN MIGRAINES PRN 04/02/19 10/09/20 acetaminophen 500 mg PO Q6H PRN PRN #60 tab 10/11/19 10/09/20 ibuprofen 600 mg PO Q8H PRN PRN #60 tab 10/11/19 10/09/20 amitriptyline 100 mg PO QHS 10/26/19 10/09/20 benztropine 0.5 mg PO QHS 12/01/19 10/09/20 gemfibrozil [Lopid] 600 mg PO BID 12/01/19 10/09/20 sertraline 100 mg PO DAILY 12/01/19 10/09/20 blunt needle, disposable 18 x 1 #100 ea 12/08/19 10/09/20 1/2 safety needles 25 gauge x 1 1/2 #50 ea 12/08/19 10/09/20 syringe (disposable) 5 mL #100 ea 12/08/19 10/09/20 testosterone cypionate 200 mg/mL 200 mg IM Q2W #5 ml 03/12/20 10/09/20 intramuscular oil lurasidone 40 mg tablet 40 mg PO DAILY 05/10/20 10/09/20 topiramate 100 mg tablet 100 mg PO QHS #30 tab 08/30/20 10/09/20 clindamycin HCl 300 mg PO TID 10/09/20 10/09/20 meclizine 25 mg PO BID PRN 7 Days #14 tab 10/09/20 omeprazole 20 mg PO DAILY 10/09/20 10/09/20 Previous Rx's Medication Instructions Recorded acetaminophen 500 mg PO Q6H PRN PRN #60 tab 10/11/19 ibuprofen 600 mg PO Q8H PRN PRN #60 tab 10/11/19 blunt needle, disposable 18 x 1 #100 ea 12/08/19 1/2 safety needles 25 gauge x 1 1/2 #50 ea 12/08/19 syringe (disposable) 5 mL #100 ea 12/08/19 testosterone cypionate 200 mg/mL 200 mg IM Q2W #5 ml 03/12/20 intramuscular oil topiramate 100 mg tablet 100 mg PO QHS #30 tab 08/30/20 meclizine 25 mg PO BID PRN 7 Days #14 tab 10/09/20 Allergies Allergy/AdvReac Type Severity Reaction Status Date / Time Penicillins Allergy Severe Anaphylaxsi Verified 10/09/20 11:27 s vancomycin Allergy Severe Skin Rash Verified 10/09/20 11:27 latex Allergy Intermediate hives with Verified 10/09/20 11:27 latex powdered gloves General Stated Complaint: Dizzy/Sync GLO: 2 Review of Systems Narrative: Constitutional: Negative for weight loss, alert and oriented, well groomed, normal body habitus, appears comfortable. HEENT: Denies trauma, blurry vision, nasal discharge, sore throat, trouble swallowing. Chest: Denies chest pain, palpitations, irregular rhythm, hypertension. Respiratory: Denies Shortness of breath, cough, hemoptysis. GI: Denies abdominal pain, nausea, vomiting, constipation. Mild diarrhea that started yesterday. : Denies dysuria, hematuria, flank pain, rectal bleeding. Neuro: Denies blurry vision, weakness, syncope,or facial numbness. Positive room spinning and dizziness and frontal headache worse with lying flat. Hematologic: Denies easy bruising, intolerance to heat or cold, hair loss. 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 is patent Hydrocephalus associated with congenital aqueduct stenosis Hypogonadism Hypothyroid Memory impairment Neck pain Persistent headaches Pseudoseizures Seizures Sleep apnea central per report; wearing CPAP Tubular adenoma of colon Surgical History Hx of colonoscopy Hx of shoulder surgery Intracranial shunt with several revisions Per pt. 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 Appears stated age. Normal body habitus. Head: Normocephalic, no trauma. Eyes: Pupils PERRLA, Red reflex noted, EOM's intact. Eyelids symmetrical without lesions, discharge, or swelling. ENT: Bilateral TM's WNL, External ear normal to inspection, no mastoid TTP, swelling, or erythema, Nasal turbinates WNL, no nasal discharge. Normal dentition, Posterior pharynx WNL, no exudate. Chest: RRR, Normal S1, S2, distal pulses intact. Resp: Lungs clear to auscultation bilaterally, no wheezes, rales, or rhonchi. Musculoskeletal: Normal gait, 5/5 strength to all four extremities. Skin: No suspicious rashes or lesions. Capillary refill less than 2 sec. Neurologic: Cranial nerves II-XII intact. Alert and oriented x 3. Hematologic/Lymphatic: No ecchymosis, no lymphadenopathy. Course Vital Signs Vital signs: Vital Signs Temperature 36.7 C 10/09/20 11:19 Pulse 95 H 10/09/20 11:19 Respiratory Rate 16 10/09/20 11:19 Blood Pressure 137/91 H 10/09/20 11:19 Pulse Oximetry 98 10/09/20 11:19 Temperature 36.7 C 10/09/20 11:19 Temperature Source Temporal Artery Scan 10/09/20 11:19 Pulse 95 H 10/09/20 11:19 Respiratory Rate 16 10/09/20 11:19 Respiratory Effort Non-Labored 10/09/20 11:25 Blood Pressure 137/91 H 10/09/20 11:19 Blood Pressure Position Supine 10/09/20 11:19 Pulse Oximetry 98 10/09/20 11:19 Oxygen Delivery Method Room Air 10/09/20 11:19 Oxygen Flow Rate 0 10/09/20 11:19 Pain Level 3 10/09/20 11:19
[2020-10-09 12:00] LABS: Abs Immature Grans 0.01 10^3/uL (0.0-0.06); Absolute Basophil Count 0.06 10^3/uL (0.0-0.2); Absolute Eosinophil Count 0.13 10^3/uL (0.0-0.7); Absolute Lymphocyte Count 2.59 10^3/uL (1.2-3.4); Absolute Neutrophil Count 5.03 10^3/uL (1.2-6.7); Basophils % 0.7; Eosinophils % 1.6; HCT 52.9 % (40.0-50.0); HGB 17.4 g/dL (13.5-17.5); Immature Grans % 0.1; Lymphocytes % 31.1; MCH 29.8 pg (27.0-33.0); MCHC 32.9 % (32.0-36.0); MCV 90.6 fL (80-95); MPV 9.1 fL (8.0-11.0); Neutrophils % 60.5; Nucleated RBC 0 %; Platelet Count 264 10^3/uL (130-400); RBC 5.84 10^6/uL (4.36-5.78); RDW 12.3 % (11.8-14.1); RDW-SD 40.4 fL; WBC 8.32 10^3/uL (4.4-10.8)
[2020-10-09] MEDS: Normal Saline 1,000 ML 1000 ML IV (12:11)
[2020-10-09] MEDS: Meclizine 25 MG TAB PO (12:11)
[2020-10-09 12:12] LABS: ALT 24 U/L (16-63); AST 7 U/L (15-37); Albumin 3.9 g/dL (3.4-5.0); Alkaline Phosphatase 98 U/L (46-116); Anion Gap 9.1 mmol/L (3-11); BUN 18 mg/dL (7-18); Bilirubin, Total 0.3 mg/dL (0.2-1.0); CO2 23.9 mmol/L (21.0-32.0); CREATININE 1.5 mg/dL (0.70-1.30); Calcium 8.8 mg/dL (8.5-10.1); Chloride 106 mmol/L (98-107); Estimated GFR 50.16 (mL/min/1.73m2); Glucose 124 mg/dL (74-106); Magnesium 2.3 mg/dL (1.8-2.4); Potassium 3.9 mmol/L (3.5-5.1); Sodium 139 mmol/L (136-145)
--- NOTE | 2020-10-09 12:23 | DI.CT_ITS ---
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 Note is made of apparent prior right temporal and parietal crane ladle person niotomies and previous left frontal gala hole as well as a right frontal ventriculoperitoneal shunt w hich terminates in left lateral ventricle. Ventricular size is within normal limits. No intracrania l hemorrhage, mass effect, midline shift. Orbital and temporal bone structures appear intact. Visualized mastoid air cells and paranasal sinus es appear well aerated. IMPRESSION: No evidence of acute process. No change from prior scan of November 2019. RADIATION DOSE DELIVERED: 755.18mGy.cm Total DLP 37.08mGy CTDIvol RADIATION OPTIMIZATION: All CT scans at this facility use at least one of these dose optimization te chniques: automated exposure control; mA and/or kV adjustment per patient size (includes targeted exa ms where dose is matched to clinical indication); or iterative reconstruction.
[2020-10-09 13:04] LABS: Bilirubin Negative (Negative); Blood Negative (Negative); Clarity Clear (Clear); Glucose Negative (Negative); Ketones Negative (Negative); Leukocyte Esterase Negative (Negative); Nitrite Negative (Negative); Specific Gravity 1.025 (1.005-1.025); Urobilinogen 0.2 EU/dL (Up TO 0.2)
== END 2020-10-09 12:59 | disposition home or self-care (01) ==
PROVIDERS: Emergency Provider Registered Nurse Emergency
DX: R42 Dizziness and giddiness (principal); R51.9 Headache, unspecified; Z98.2 Presence of cerebrospinal fluid drainage device
CPT/HCPCS: 36415; 80053; 96360; 99284; 70450; 81003; 83735; 85025

== ENCOUNTER → 2020-10-11 09:30 | Outpatient (BNVA) | payer MEDICARE, MEDICAID, SELFPAY | PROVIDERS: Referring Provider Nurse Practitioner Family; Visit Provider Nurse Practitioner Adult Health | DX: G43.109 Migraine with aura, not intractable, without status migrainosus (principal) | CPT/HCPCS: 99213; 99215 ==

== ENCOUNTER 2020-12-05 04:10 | Outpatient (CLI) | payer MEDICARE, MEDICAID, SELFPAY ==
[2020-12-07 16:49] LABS: Testosterone, Total 77 ng/dL (240-950)
== END 2020-12-05 04:11 | disposition home or self-care (01) ==
LOC: LBO 04:10
PROVIDERS: Visit Provider Nurse Practitioner Gerontology
DX: E29.1 Testicular hypofunction (principal)
CPT/HCPCS: 36415; 84403

== ENCOUNTER → 2020-12-12 14:48 | Outpatient (BNVA) | payer MEDICARE, MEDICAID, SELFPAY | PROVIDERS: PCP Nurse Practitioner Family; Referring Provider Nurse Practitioner Family; Visit Provider Nurse Practitioner Gerontology | DX: E29.1 Testicular hypofunction (principal) | CPT/HCPCS: 99213 ==

== ENCOUNTER 2021-01-01 04:12 | Outpatient (CLI) | payer MEDICARE, MEDICAID, SELFPAY ==
[2021-01-05 16:53] LABS: Testosterone, Total 77 ng/dL (240-950)
== END 2021-01-01 04:13 | disposition home or self-care (01) ==
LOC: LBO 04:12
PROVIDERS: PCP Nurse Practitioner Family; Visit Provider Nurse Practitioner Gerontology
DX: E29.1 Testicular hypofunction (principal)
CPT/HCPCS: 36415; 84403

== ENCOUNTER 2021-01-15 09:48 | Outpatient (REF) | payer MEDICARE, MEDICAID, SELFPAY ==
[2021-01-14 20:59] LABS: TSH (W/Ref FT4) 1.48 uIU/mL (0.36-3.74)
[2021-01-19 15:29] LABS: Testosterone, Free 9.32 ng/dL (4.26-16.4); Testosterone, Total 239 ng/dL (240-950)
== END 2021-01-15 09:49 | disposition home or self-care (01) ==
LOC: NCHCN 09:48
PROVIDERS: PCP Nurse Practitioner Family; Visit Provider Nurse Practitioner Family
DX: E03.9 Hypothyroidism, unspecified (principal); E29.1 Testicular hypofunction
CPT/HCPCS: 84402; 84403; 84443

== ENCOUNTER 2021-02-20 13:20 | Outpatient (CLI) | payer MEDICARE, MEDICAID, SELFPAY ==
--- NOTE | 2021-02-20 | DI.RAD_ITS ---
Exam(s) XR FOOT RT COMPLETE EXAM: XR FOOT RT COMPLETE CLINICAL HISTORY: RT FOOT PAIN M79.671, RT MIDFOOT PAIN MOST NOTABLE OVER TOP OF FOOT. TECHNIQUE: 2D digital imaging was performed. COMPARISON: CR XR ANKLE RT COMPLETE from 08/15/2020 FINDINGS: There is no evidence of acute fracture or diastasis of the Lisfranc joint. No pes planus. Bone dens ity is normal. No osseous lesions. No erosions. IMPRESSION: No significant radiographic findings. DATA REPOSITORY: RADIATION DOSE DELIVERED:
== END 2021-02-20 13:40 ==
PROVIDERS: PCP Nurse Practitioner Family; Visit Provider Physician Assistant Medical
DX: M79.671 Pain in right foot (principal)
CPT/HCPCS: 73630

== ENCOUNTER → 2021-03-21 10:18 | Outpatient (BNVA) | payer MEDICARE, MEDICAID, SELFPAY | PROVIDERS: PCP Nurse Practitioner Family; Visit Provider Nurse Practitioner Adult Health | DX: G43.109 Migraine with aura, not intractable, without status migrainosus (principal); G31.84 Mild cognitive impairment of uncertain or unknown etiology; Z87.820 Personal history of traumatic brain injury; Z73.3 Stress, not elsewhere classified | CPT/HCPCS: 99213 ==

== ENCOUNTER → 2021-05-08 08:24 | Outpatient (BNVA) | payer MEDICARE, MEDICAID, SELFPAY | PROVIDERS: PCP Nurse Practitioner Family; Referring Provider Nurse Practitioner Family; Visit Provider Nurse Practitioner Adult Health | DX: G31.84 Mild cognitive impairment of uncertain or unknown etiology (principal); G43.109 Migraine with aura, not intractable, without status migrainosus | CPT/HCPCS: 99214 ==

== ENCOUNTER → 2021-05-14 09:05 | Outpatient (BNVA) | payer MEDICARE, MEDICAID, SELFPAY | PROVIDERS: PCP Nurse Practitioner Family; Referring Provider Nurse Practitioner Family; Visit Provider Nurse Practitioner Adult Health | DX: R51.9 Headache, unspecified (principal); G89.29 Other chronic pain | CPT/HCPCS: 99211 ==

== ENCOUNTER 2021-05-21 11:59 | Outpatient (CLI) | payer MEDICARE, MEDICAID, SELFPAY ==
--- NOTE | 2021-05-21 10:15 | DI.CT_ITS ---
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 TECHNIQUE: Imaging Protocol: Axial computed tomography images with coronal and sagittal reformatted images were created and reviewed COMPARISON: CT CT HEAD WO from 10/09/2020 FINDINGS: Ventricles and Extra axial spaces: There has been no change in size of the ventricles compared to the prior examination. No ventricular enlargement is seen. The ventricular peritoneal shunt is stable in position. Hemorrhage: None. Cerebral parenchyma: Normal. Midline shift: None. Brainstem/Cerebellum: Normal. Calvarium: Normal. Visualized Paranasal sinuses/Mastoids: Clear. Soft Tissues: Unremarkable. IMPRESSION: 1. No acute intracranial process. 2. Stable location of the ventriculoperitoneal shunt. No evidence of ventricular enlargement. RADIATION DOSE DELIVERED: 736.45mGy.cm Total DLP DATA REPOSITORY: All CT scans at this facility are submitted to the National Radiology Data Registry (NRDR) Dose Index Registry (DIR) with the [employer] (ACR). RADIATION OPTIMIZATION: All CT scans at this facility use at least one of these dose optimization te chniques: automated exposure control; mA and/or kV adjustment per patient size (includes targeted exa ms where dose is matched to clinical indication); or iterative reconstruction.
== END 2021-05-21 12:19 ==
PROVIDERS: PCP Nurse Practitioner Family; Visit Provider Nurse Practitioner Adult Health
DX: R41.89 Other symptoms and signs involving cognitive functions and awareness (principal); Z98.2 Presence of cerebrospinal fluid drainage device
CPT/HCPCS: 70450

== ENCOUNTER 2021-05-30 18:50 | Outpatient (REF) | payer MEDICARE, MEDICAID, SELFPAY ==
[2021-05-30 19:47] LABS: ALT 28 U/L (16-63); AST 20 U/L (15-37); Albumin 4.2 g/dL (3.4-5.0); Alkaline Phosphatase 98 U/L (46-116); BUN 11 mg/dL (7-18); Bilirubin, Total 0.4 mg/dL (0.2-1.0); CREATININE 1.2 mg/dL (0.70-1.30); Calcium 8.9 mg/dL (8.5-10.1); Chloride 103 mmol/L (98-107); Glucose 84 mg/dL (74-106); Sodium 138 mmol/L (136-145)
== END 2021-05-30 18:51 | disposition home or self-care (01) ==
LOC: NCHCN 18:50
PROVIDERS: PCP Nurse Practitioner Family; Visit Provider Nurse Practitioner Family
DX: I10 Essential (primary) hypertension (principal)
CPT/HCPCS: 80053

== ENCOUNTER 2021-06-06 02:39 | Outpatient (CLI) | payer MEDICARE, MEDICAID, SELFPAY ==
--- NOTE | 2021-06-24 12:28 | PDOC.EEG_ITS ---
Neurology EEG EEG: [facility] Department of Neurology LONG-TERM AMBULATORY EEG REPORT Date of Recordin06/06/21 at 08:25:51 to 06/07/21 at 08:22:58 Interpreting Physician: Dr. Megan Coy PCP/Referring Provider: Brenda Fernandes NP Reason for study: Mr. Costa is a 50 year-old man with a complicated medical story including mild cognitive impairment complicated by a history of hydrocephalus with SKEIN INSPECTOR shunt, mood disorder, insomnia, and untreated sleep apnea who has been having memory lapses concerning for seizure. Current Medications: Home Medications Medication Instructions Recorded Confirmed Type levothyroxine 25 mcg tablet 25 mcg PO DAILY tab 01/27/19 05/14/21 History acetaminophen 500 mg tablet 500 mg PO Q6H PRN PRN #60 tab 10/11/19 05/14/21 Rx ibuprofen 600 mg tablet 600 mg PO Q8H PRN PRN #60 tab 10/11/19 05/14/21 Rx amitriptyline 100 mg tablet 100 mg PO QHS 10/26/19 05/14/21 History rizatriptan 10 mg tablet 10 mg PO .PRN MIGRAINES PRN #14 tab 10/11/20 05/14/21 Rx sertraline 100 mg tablet (Zoloft) 100 mg PO DAILY 10/11/20 05/14/21 History safety needles 25 gauge x 1 1/2 #50 ea 12/10/20 05/14/21 Rx (EasyPoint Needle) syringe (disposable) 5 mL (BD #100 ea 12/10/20 05/14/21 Rx Luer-Kayla Syringe) blunt needle, disposable 18 x 1 #100 ea 12/12/20 05/14/21 Rx 1/2 topiramate 100 mg tablet (Topamax) 100 mg PO QHS #30 tab 03/21/21 05/14/21 Rx erenumab-aooe 70 mg/mL 70 mg SUBCUT QMONTH #1 ml 05/08/21 05/14/21 Rx subcutaneous auto-injector (Aimovig Autoinjector) testosterone cypionate 200 mg/mL 200 mg IM Q2W #5 ml 06/11/21 Rx intramuscular oil METHODS: An 18-channel digitized electroencephalogram was recorded in the ambulatory setting with video. The 10/20 international system of electrode placement was used and bipolar and referential electrode montages were recorded. In addition to EEG the patient was monitored for EKG and by video. Activation procedures of photic stimulation and hyperventilation were performed if applicable. The duration of the recording was 24 hours. DESCRIPTION OF EEG: Waking background activity: During maximal wakefulness a 10-Hz posterior background rhythm was present which was well-modulated, symmetrical, reactive to eye opening, and of moderate voltage. Faster frequencies were present in the bilateral anterior head regions. There was a normal anterior-posterior voltage gradient. Drowsy and sleeping background activity: During drowsiness, there was attenuation of the posterior dominant background rhythm and vertex waves. Normal stage II and III sleep was present with symmetrical sleep spindles, K- complexes, and vertex waves with slowing of the background rhythm to delta/theta frequencies. REM sleep manifested by rapid lateral eye movements and faster background rhythms was recorded. Arousal was unremarkable. Interictal abnormalities: There was continuous, high-amplitude, sharply- contoured activity intermixed with beta frequency activity over the right hemisphere, maximal over the temporal region (T4>C4), consistent with a breach rhythm. Ictal findings: There were button pushes at 10:27:47, 11:08:49, 14:07:08, 14:17:47, 17:44:21, 17:59:43, 18:49:34, 19:46:02, 20:17:33, 20:39:06, 20:58:19, and 23:45:11 on 06/06/21. There were button pushes at 03:42:23 and 06:06:15 on 06/07/21. None of these events were associated with epileptiform activity. An event diary/description of clinical manifestations [facility] Activating Procedures: Photic stimulation was not performed/stopped prematuredly due to patient request as he felt he was going to have a seizure if it continued. Hyperventilation was performed with moderate effort and produced no physiological slowing of the background. EKG: EKG revealed normal sinus rhythm. INTERPRETATION: This long-term EEG is abnormal due to noted right hemisphere breach rhythm. There were multiple button pushes as above, unclear if these were associated with clinical symptoms. PRIOR EEG: none CLINICAL CORRELATION: The breach rhythm above is consistent with patient's known prior cranial defect. There was no epileptiform activity present. Multiple event button pushes above. Unclear if these were associated with clinical symptoms. Epilepsy remains a clinical diagnosis and a normal EEG does not rule out epilepsy. Clinical correlation is advised. Megan Coy MD
== END 2021-06-06 02:40 | disposition home or self-care (01) ==
LOC: RT 02:39
PROVIDERS: PCP Nurse Practitioner Family; Visit Provider Nurse Practitioner Adult Health
DX: R41.89 Other symptoms and signs involving cognitive functions and awareness (principal); Z98.2 Presence of cerebrospinal fluid drainage device
CPT/HCPCS: 95720

== ENCOUNTER 2021-06-13 02:32 | Outpatient (CLI) | payer MEDICARE, MEDICAID, SELFPAY ==
[2021-06-18 00:09] LABS: Testosterone, Total 849 ng/dL (240-950)
== END 2021-06-13 02:33 | disposition home or self-care (01) ==
LOC: LBO 02:32
PROVIDERS: PCP Nurse Practitioner Family; Visit Provider Urology
DX: E29.1 Testicular hypofunction (principal)
CPT/HCPCS: 36415; 84403

== ENCOUNTER → 2021-06-20 15:24 | Outpatient (BNVA) | payer MEDICARE, MEDICAID, SELFPAY | PROVIDERS: PCP Nurse Practitioner Family; Visit Provider Nurse Practitioner Gerontology | DX: E29.1 Testicular hypofunction (principal); N40.1 Benign prostatic hyperplasia with lower urinary tract symptoms; N13.8 Other obstructive and reflux uropathy | CPT/HCPCS: 99214 ==

== ENCOUNTER → 2021-08-07 08:29 | Outpatient (BNVA) | payer MEDICARE, MEDICAID, SELFPAY | PROVIDERS: PCP Nurse Practitioner Family; Referring Provider Nurse Practitioner Family; Visit Provider Nurse Practitioner Adult Health | DX: G43.909 Migraine, unspecified, not intractable, without status migrainosus (principal); F39 Unspecified mood [affective] disorder; G47.00 Insomnia, unspecified; G47.30 Sleep apnea, unspecified | CPT/HCPCS: 99213 ==

== ENCOUNTER 2021-08-17 16:40 | Emergency (ER) | payer MEDICARE, MEDICAID, SELFPAY ==
[2021-08-17 16:59] VITALS: BP 134/97; PULSE 116; RESP 16; TEMP 36.5; O2SAT 95
--- NOTE | 2021-08-17 17:22 | DI.RAD_ITS ---
Exam(s) XR FOREARM RT EXAM: XR FOREARM RT CLINICAL HISTORY: fall. TECHNIQUE: 2D digital imaging was performed. COMPARISON: No exams were available for comparison FINDINGS: Two views No fracture or dislocation. No radiopaque foreign body. No osseous lesions. IMPRESSION: No fracture evident DATA REPOSITORY: RADIATION DOSE DELIVERED:
--- NOTE | 2021-08-17 17:42 | DI.VRAD_ITS ---
PROCEDURE INFORMATION: Exam: XR Right Forearm Exam date and time: 08/17/2021 5:17 PM Age: 50 years old Clinical indication: Lower or forearm; Right; Patient HX: S/P fall, pain upon moving. TECHNIQUE: Imaging protocol: Radiologic exam of the Right forearm. Views: 2 views. COMPARISON: No relevant images were readily available for comparison purposes. FINDINGS: Bones/joints: No acute fracture or dislocation. Soft tissues: Unremarkable. IMPRESSION: No acute fracture or dislocation. Dictated and Authenticated by: Anoop Finley MD. Ordering:ALON Provider Temporary MD
--- NOTE | 2021-08-17 18:04 | ED.GENADUL_ITS ---
Discharge Plan Disposition Patient Disposition: HOME Condition: Stable Discharge Details Clinical Impression: Contusion of right forearm, Sprain of right elbow Primary Care Provider: Irma Gates ED Provider: Guera Melgoza Home Meds and New Rx's Prescriptions: Continued sertraline [Zoloft] 100 mg tablet 100 mg PO DAILY rizatriptan 10 mg tablet 10 mg PO .PRN MIGRAINES PRN (Reason: migraine headache) Qty: 14 3RF Rx Instructions: Take one tab at onset of migraine. May repeat after 2 hours if needed. No more than 2 tabs in 24 hours. Aimovig Autoinjector 70 mg/mL auto-injector 70 mg subcut QMONTH Qty: 1 11RF topiramate [Topamax] 25 mg tablet See Rx Instructions PO QHS Qty: 60 0RF Rx Instructions: orally every day at bedtime; 75 mg x 1 week, 50 mg x 1 week, 25 mg x 1 week, then stop. (DME) syringe (disposable) [BD Luer-Kayla Syringe] 5 mL syringe See Rx Instructions .ROUTE .MEDSUPPLY Qty: 100 0RF Rx Instructions: use with needle for testosterone inject [id number] #2/mo. (DME) EasyPoint Needle 25 gauge x 1 1/2 needle See Rx Instructions .ROUTE .MEDSUPPLY Qty: 50 0RF Rx Instructions: Use one needle to inject testosterone q 2 week #2/month. (DME) blunt needle, disposable 18 x 1 1/2 needle See Rx Instructions .ROUTE .MEDSUPPLY Qty: 100 0RF Rx Instructions: Use one needle to draw up testosterone q 2 weeks. #2/month testosterone cypionate 200 mg/mL oil 200 mg IM Q2W Qty: 5 0RF levothyroxine 25 mcg tablet 25 mcg PO DAILY acetaminophen 500 mg tablet 500 mg PO Q6H PRN PRN (Reason: pain) Qty: 60 3RF ibuprofen 600 mg tablet 600 mg PO Q8H PRN PRN (Reason: pain) Qty: 60 0RF amitriptyline 100 mg tablet 100 mg PO QHS Discharge Instructions Instructions: Contusion in Adults (ED), Wrist Sprain (ED) Additional Instructions: Your x-rays today are negative for acute fracture. Your wrist was placed in a splint in your arm in a sling. Wear these as much as possible to help with pain and for comfort. Rest, ice, and elevate the affected area as much as possible. Alternate tylenol and motrin as needed and directed for pain. Follow-up with your primary care doctor within the next week for reevaluation and for referral for repeat x-rays if indicated and for referral to orthopedic if needed. Return immediately to the emergency department if you develop any worsening or new concerning symptoms. Referrals: Ray Andino MD [ [facility] STAFF PHYSICIAN] - Discharge Data Discharge Physician: Guera Melgoza Medical Decision Making 50-year-old male presents with right forearm pain and right wrist pain after trip and fall onto his right arm at home today. He mostly has tenderness overlying the right proximal posterior forearm. No tenderness to palpation overlying elbow. He has a right dorsal wrist tenderness. No right snuffbox tenderness. There is no deformity and he has neurovascular intact. Patient referred for x-rays which were unremarkable. He was placed in a right wrist splint and sling. Given orthopedic follow-up information if needed and to follow-up with his PCP for x-rays if needed. Usual and customary return precautions given prior to discharge. Imaging Data Radiologic Study: Radiologist's impression: XR Right Forearm Exam date and time: 08/17/2021 5:17 PM Age: 50 years old Clinical indication: Lower or forearm; Right; Patient HX: S/P fall, pain upon moving. TECHNIQUE: Imaging protocol: Radiologic exam of the Right forearm. Views: 2 views. COMPARISON: No relevant images were readily available for comparison purposes. FINDINGS: Bones/joints: No acute fracture or dislocation. Soft tissues: Unremarkable. IMPRESSION: No acute fracture or dislocation. XR Right Wrist Exam date and time: 08/17/2021 6:24 PM Age: 50 years old Clinical indication: Pain; Wrist; Right; Patient HX: Fall onto out stretched arms TECHNIQUE: Imaging protocol: Radiologic exam of the Right wrist. Views: 3 or more views. COMPARISON: CR XR FOREARM RT 08/17/2021 5:17 PM FINDINGS: Bones/joints: No acute fracture or malalignment. No significant degenerative change. No agressive bone destruction. Soft tissues: Unremarkable. IMPRESSION: 1. No acute findings. 2. If a scaphoid or other occult fracture is suspected, consider ulnar deviation view and recommend imaging in 7-10 days after splinting. XR Right Elbow Exam date and time: 08/17/2021 6:27 PM Age: 50 years old Clinical indication: Pain; Elbow; Right; Patient HX: Fall onto out stretched arms TECHNIQUE: Imaging protocol: Radiologic exam of the Right elbow. Views: 3 or more views. COMPARISON: CR XR WRIST RT COMPLETE 08/17/2021 6:24 PM FINDINGS: Bones/joints: No acute fracture or malalignment. Small olecranon spur. No other significant degenerative change. No agressive bone destruction. Soft tissues: Unremarkable. IMPRESSION: 1. No acute findings. 2. If clinical concern for occult fracture, consider followup radiographs in 7-10 days. HPI General Mode of arrival: ambulatory . Date/Time Provider Initiated Documentation: 08/17/21 17:27 . Limitations to Documentation: no limitations . Information obtained by: patient . HPI Narrative: Patient is a 50-year-old male who presents with right forearm pain after trip and fall at home onto his right arm. Patient is complaining of pain mostly in his right proximal forearm but also has some pain in his right wrist. Not take any medicine he has not taken any medication for pain. Related Data Home Medications Medication Instructions Recorded Confirmed levothyroxine 25 mcg tablet 25 mcg PO DAILY 01/27/19 08/17/21 acetaminophen 500 mg tablet 500 mg PO Q6H PRN PRN pain #60 tabs 10/11/19 08/17/21 ibuprofen 600 mg tablet 600 mg PO Q8H PRN PRN pain #60 tabs 10/11/19 08/17/21 amitriptyline 100 mg tablet 100 mg PO QHS 10/26/19 08/17/21 sertraline 100 mg tablet (Zoloft) 100 mg PO DAILY 10/11/20 08/17/21 safety needles 25 gauge x 1 1/2 #50 ea 12/10/20 08/17/21 (EasyPoint Needle) syringe (disposable) 5 mL (BD #100 ea 12/10/20 08/17/21 Luer-Kayla Syringe) blunt needle, disposable 18 x 1 #100 ea 12/12/20 08/17/21 1/2 testosterone cypionate 200 mg/mL 200 mg IM Q2W #5 mL 06/11/21 08/17/21 intramuscular oil erenumab-aooe 70 mg/mL 70 mg subcut QMONTH #1 mL 08/07/21 08/17/21 subcutaneous auto-injector (Aimovig Autoinjector) rizatriptan 10 mg tablet 10 mg PO .PRN MIGRAINES PRN 08/07/21 08/17/21 migraine headache #14 tabs topiramate 25 mg tablet (Topamax) See Rx Instructions PO QHS #60 tabs 08/07/21 08/17/21 Previous Rx's Medication Instructions Recorded acetaminophen 500 mg tablet 500 mg PO Q6H PRN PRN pain #60 tabs 10/11/19 ibuprofen 600 mg tablet 600 mg PO Q8H PRN PRN pain #60 tabs 10/11/19 safety needles 25 gauge x 1 1/2 #50 ea 12/10/20 (EasyPoint Needle) syringe (disposable) 5 mL (BD #100 ea 12/10/20 Luer-Kayla Syringe) blunt needle, disposable 18 x 1 #100 ea 12/12/20 1/2 testosterone cypionate 200 mg/mL 200 mg IM Q2W #5 mL 06/11/21 intramuscular oil erenumab-aooe 70 mg/mL 70 mg subcut QMONTH #1 mL 08/07/21 subcutaneous auto-injector (Aimovig Autoinjector) rizatriptan 10 mg tablet 10 mg PO .PRN MIGRAINES PRN 08/07/21 migraine headache #14 tabs topiramate 25 mg tablet (Topamax) See Rx Instructions PO QHS #60 tabs 08/07/21 Allergies Allergy/AdvReac Type Severity Reaction Status Date / Time Penicillins Allergy Severe Anaphylaxsi Verified 08/17/21 17:03 s vancomycin Allergy Severe Skin Rash Verified 08/17/21 17:03 latex Allergy Intermediate hives with Verified 08/17/21 17:03 latex powdered gloves General Stated Complaint: Orthopedic GLO: 4 Review of Systems All systems reviewed & are unremarkable except as noted in HPI and below Constitutional Constitutional: Reports as per HPI, Denies chills and Denies fever(s) Eyes Eyes: Denies blurry vision ENT Ears, Nose, Mouth, and Throat: Denies dizziness, Denies sore throat and Denies throat swelling Cardiovascular Cardiovascular: Denies chest pain and Denies dyspnea Respiratory Respiratory: Denies cough and Denies dyspnea Gastrointestinal Gastrointestinal: Denies abdominal pain, Denies diarrhea and Denies vomiting Genitourinary Genitourinary: Denies hematuria and Denies dysuria Musculoskeletal Musculoskeletal: Denies back pain and Denies numbness Integumentary/Breasts Skin/Breast: Denies lesions and Denies rash Neurologic Neurologic: Denies dizziness, Denies localized weakness and Denies numbness Allergic/Immunologic Allergic/Immunologic: Denies throat swelling PFSH All Active Problems (Updated 08/17/21 @ 19:08 by Guera Melgoza, DO) Contusion of right forearm (Acute) Sprain of right elbow (Acute) Mild cognitive impairment (Acute) Odontalgia (Acute) Vertigo (Acute) Right ankle sprain (Acute) Suicidal ideation (Acute) Major depression (Chronic) Depression (Chronic) Arthritis of right acromioclavicular joint (Acute 11/05/16) Abdominal pain (Acute) Current visit - YES Colorectal polyp detected on colonoscopy (Acute) Esophagitis (Acute) Gastritis (Acute) Hypogonadism in male (Acute) Premature ejaculation (Acute) Acute stress reaction (Acute) Peripheral neuropathy (Acute) Carpal tunnel syndrome on both sides (Acute) Ulnar neuropathy of right upper extremity (Acute) Migraine headache with aura (Acute) Right carpal tunnel syndrome (Acute) Chronic headaches (Acute) Medical History Asymptomatic microscopic hematuria Cognitive developmental delay CRI (chronic renal insufficiency) Depression Dyspepsia 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 is patent Hydrocephalus associated with congenital aqueduct stenosis Hypogonadism Hypothyroid Memory impairment Neck pain Persistent headaches Pseudoseizures Seizures Sleep apnea central per report; wearing CPAP Tubular adenoma of colon Surgical History Hx of colonoscopy Hx of shoulder surgery Intracranial shunt with several revisions Per pt. is patent S/P carpal tunnel release right S/P cholecystectomy Social History Smoking/Tobacco Use Status: Never Smoking risk assessment performed?: Yes Alcohol Intake: never Drug use: Never Substance use type: does not use Household members: spouse and children Number of Children: 3 current occupation: [employer] Current gender identity: male What is your relationship status?: Panel score (0-1 are the most socially isolated patients): 1 Seatbelt use: always Do you feel safe at home: Yes Do you feel safe in your relationship?: Yes Exam Const General: cooperative and no acute distress Orientation: alert, awake and oriented x3 HENMT Head: normal to inspection Mouth: oral mucosae normal Eyes General: appearance normal, both eyes and all related structures Neck Neck: normal visual inspection Resp Effort & Inspection: normal respiratory effort and able to speak in complete sentences Cardio Rate: regular rate Skin General skin exam: no rashes or lesions noted Neuro General: patient alert, patient awake and patient oriented x3 Motor: muscle tone normal throughout Extrem Elbow/forearm/wrist images: 1. Tenderness to palpation overlying right dorsal wrist and overlying right radial head. No significant pain with range of motion at right wrist. No right snuffbox tenderness. No tenderness to palpation overlying medial lateral epicondyle or olecranon. There is no deformity noted. Right radial and ulnar pulses intact. Hand normal to inspection Psych Appearance: grossly normal Affect: normal affect Course Vital Signs Vital signs: Vital Signs Temperature 97.7 F 08/17/21 16:59 Pulse 116 H 08/17/21 16:59 Respiratory Rate 16 08/17/21 16:59 Blood Pressure 134/97 H 08/17/21 16:59 Pulse Oximetry 95 08/17/21 16:59 Temperature 97.7 F 08/17/21 16:59 Temperature Source Temporal Artery Scan 08/17/21 16:59 Pulse 116 H 08/17/21 16:59 Respiratory Rate 16 08/17/21 16:59 Respiratory Effort 08/17/21 17:02 Blood Pressure 134/97 H 08/17/21 16:59 Blood Pressure Position Sitting 08/17/21 16:59 Pulse Oximetry 95 08/17/21 16:59 Oxygen Delivery Method Room Air 08/17/21 16:59 Oxygen Flow Rate 0 08/17/21 16:59 Pain Level 8 08/17/21 16:59
--- NOTE | 2021-08-17 18:30 | DI.RAD_ITS ---
Exam(s) XR WRIST RT COMPLETE EXAM: XR WRIST RT COMPLETE CLINICAL HISTORY: fall onto outstretched R arm, r/o fx. TECHNIQUE: 2D digital imaging was performed. COMPARISON: No exams were available for comparison FINDINGS: 3 views No evidence of acute fracture or carpal dislocation. No significant ulnar variance. No obvious scap hoid fracture. Scaphoid lunate distance normal. No degenerative changes. No erosions. IMPRESSION: No fracture evident DATA REPOSITORY: RADIATION DOSE DELIVERED:
--- NOTE | 2021-08-17 18:30 | DI.RAD_ITS ---
Exam(s) XR ELBOW RT COMPLETE EXAM: XR ELBOW RT COMPLETE CLINICAL HISTORY: fall onto outstretched R arm, r/o fx. TECHNIQUE: 2D digital imaging was performed. COMPARISON: No exams were available for comparison FINDINGS: 3 views No evidence of fracture nor joint effusion. No swelling of the olecranon bursa. Radial head and nec k appear unremarkable as do the epicondyles. IMPRESSION: No significant radiographic findings. DATA REPOSITORY: RADIATION DOSE DELIVERED:
--- NOTE | 2021-08-17 19:00 | DI.VRAD_ITS ---
PROCEDURE INFORMATION: Exam: XR Right Elbow Exam date and time: 08/17/2021 6:27 PM Age: 50 years old Clinical indication: Pain; Elbow; Right; Patient HX: Fall onto out stretched arms TECHNIQUE: Imaging protocol: Radiologic exam of the Right elbow. Views: 3 or more views. COMPARISON: CR XR WRIST RT COMPLETE 08/17/2021 6:24 PM FINDINGS: Bones/joints: No acute fracture or malalignment. Small olecranon spur. No other significant degenerative change. No agressive bone destruction. Soft tissues: Unremarkable. IMPRESSION: 1. No acute findings. 2. If clinical concern for occult fracture, consider followup radiographs in 7-10 days. Dictated and Authenticated by: Rani Rubio MD. Ordering:ANNABEL Lynne MD
--- NOTE | 2021-08-17 19:01 | DI.VRAD_ITS ---
PROCEDURE INFORMATION: Exam: XR Right Wrist Exam date and time: 08/17/2021 6:24 PM Age: 50 years old Clinical indication: Pain; Wrist; Right; Patient HX: Fall onto out stretched arms TECHNIQUE: Imaging protocol: Radiologic exam of the Right wrist. Views: 3 or more views. COMPARISON: CR XR FOREARM RT 08/17/2021 5:17 PM FINDINGS: Bones/joints: No acute fracture or malalignment. No significant degenerative change. No agressive bone destruction. Soft tissues: Unremarkable. IMPRESSION: 1. No acute findings. 2. If a scaphoid or other occult fracture is suspected, consider ulnar deviation view and recommend imaging in 7-10 days after splinting. Dictated and Authenticated by: Rani Rubio MD. Ordering:ANNABEL Lynne MD
== END 2021-08-17 19:20 | disposition home or self-care (01) ==
PROVIDERS: Emergency Provider Physician Assistant; PCP Nurse Practitioner Family
DX: S50.11XA Contusion of right forearm, initial encounter (principal); S53.491A Other sprain of right elbow, initial encounter; W01.0XXA Fall on same level from slipping, tripping and stumbling without subsequent striking against object, initial encounter
CPT/HCPCS: 29125; 99284; 73080; 73090; 73110; 99283

== ENCOUNTER 2021-08-20 11:41 | Emergency (ER) | payer MEDICARE, MEDICAID, SELFPAY ==
[2021-08-20 11:47] VITALS: BP 135/99; PULSE 111; RESP 18; TEMP 36.8; O2SAT 97
--- NOTE | 2021-08-20 11:53 | ED.GENADUL_ITS ---
Discharge Plan Disposition Patient Disposition: HOME Condition: Stable Discharge Details Clinical Impression: Sprain of right elbow, Sprain of right wrist Primary Care Provider: Irma Gates ED Provider: Guera Melgoza Home Meds and New Rx's Prescriptions: Continued sertraline [Zoloft] 100 mg tablet 100 mg PO DAILY rizatriptan 10 mg tablet 10 mg PO .PRN MIGRAINES PRN (Reason: migraine headache) Qty: 14 3RF Rx Instructions: Take one tab at onset of migraine. May repeat after 2 hours if needed. No more than 2 tabs in 24 hours. Aimovig Autoinjector 70 mg/mL auto-injector 70 mg subcut QMONTH Qty: 1 11RF topiramate [Topamax] 25 mg tablet See Rx Instructions PO QHS Qty: 60 0RF Rx Instructions: orally every day at bedtime; 75 mg x 1 week, 50 mg x 1 week, 25 mg x 1 week, then stop. (DME) syringe (disposable) [BD Luer-Kayla Syringe] 5 mL syringe See Rx Instructions .ROUTE .MEDSUPPLY Qty: 100 0RF Rx Instructions: use with needle for testosterone inject [id number] #2/mo. (DME) EasyPoint Needle 25 gauge x 1 1/2 needle See Rx Instructions .ROUTE .MEDSUPPLY Qty: 50 0RF Rx Instructions: Use one needle to inject testosterone q 2 week #2/month. (DME) blunt needle, disposable 18 x 1 1/2 needle See Rx Instructions .ROUTE .MEDSUPPLY Qty: 100 0RF Rx Instructions: Use one needle to draw up testosterone q 2 weeks. #2/month testosterone cypionate 200 mg/mL oil 200 mg IM Q2W Qty: 5 0RF levothyroxine 25 mcg tablet 25 mcg PO DAILY acetaminophen 500 mg tablet 500 mg PO Q6H PRN PRN (Reason: pain) Qty: 60 3RF ibuprofen 600 mg tablet 600 mg PO Q8H PRN PRN (Reason: pain) Qty: 60 0RF amitriptyline 100 mg tablet 100 mg PO QHS Discharge Instructions Instructions: Elbow Sprain (ED), Wrist Sprain (ED) Additional Instructions: Your imaging today shows no evidence of fracture or dislocation. Your symptoms may be due to a sprain and/or a bruise. Keep your right wrist splint and sling in place as needed for support and to help with pain. Rest, ice, and elevate the affected area as much as possible. Alternate tylenol and motrin as needed and directed for pain. Call your primary care doctor's office today for follow-up for reevaluation and for referral for physical therapy or to orthopedics if needed. Return immediately to the emergency department if you develop any worsening or new concerning symptoms. Referrals: Ray Andino MD [ [facility] STAFF PHYSICIAN] - Discharge Data Discharge Physician: Guera Melgoza Medical Decision Making 50-year-old male seen in the ED 3 days ago status post a mechanical fall with negative x-rays presents with persistent pain in his right elbow and wrist. Patient has been placed in a wrist splint and sling. He has tenderness to palpation overlying the radial head and right dorsal wrist. There is no deformity. He has neurovascular intact. We will give a dose of Motrin and refer for CT. CT negative for acute findings. Patient placed back in his splint and sling. Patient advised to follow-up with his PCP and for referral to physical therapy or orthopedics if needed. Usual and customary return precautions given prior to discharge. Medical Records Medical records reviewed: Yes I reviewed the patient's medical records. Imaging Data Radiologic Study: Radiologist's impression: CT UPPER EXTREMITY RT WO CLINICAL HISTORY: ? fall onto R arm, pain elbow/wrist, r/o fx. ? TECHNIQUE:? Imaging Protocol: Axial computed tomography images with coronal and sagittal reformatted images were created and reviewed. COMPARISON:? No exams were available for comparison FINDINGS: Bones:? The osseous structures and articular surfaces are intact.? Bony alignment is satisfactory.? No cellulitic or osteomyelitic changes are identified.? There is no evidence of joint space narrowing or cystic degeneration seen. No lytic or sclerotic lesions are identified. There is a well corticated tiny osseous density seen adjacent to the olecranon which appears old. Soft Tissues: There is mild edema seen in the soft tissues along the dorsum of the elbow.? IMPRESSION: 1. No acute fracture or dislocation. 2. If symptoms persist, a follow-up x-ray may be obtained to assess for evidence of healing. 3. Results of this exam have been verbally communicated with provider.? HPI General Date/Time Provider Initiated Documentation: 08/20/21 11:53 . HPI Narrative: Patient is a 50-year-old male with a history of hypertension, hyperlipidemia, cognitive developmental delay, hypothyroidism, seizures and pseudoseizures who was 3 days ago for a right upper extremity injury in which he tripped and fell and landed on his outstretched right arm complaining of right elbow and wrist pain and had negative x-rays and was advised to follow-up presents with persistent right elbow and wrist pain. He denies any new injuries. Related Data Home Medications Medication Instructions Recorded Confirmed levothyroxine 25 mcg tablet 25 mcg PO DAILY 01/27/19 08/20/21 acetaminophen 500 mg tablet 500 mg PO Q6H PRN PRN pain #60 tabs 10/11/19 08/20/21 ibuprofen 600 mg tablet 600 mg PO Q8H PRN PRN pain #60 tabs 10/11/19 08/20/21 amitriptyline 100 mg tablet 100 mg PO QHS 10/26/19 08/20/21 sertraline 100 mg tablet (Zoloft) 100 mg PO DAILY 10/11/20 08/20/21 safety needles 25 gauge x 1 1/2 #50 ea 12/10/20 08/20/21 (EasyPoint Needle) syringe (disposable) 5 mL (BD #100 ea 12/10/20 08/20/21 Luer-Kayla Syringe) blunt needle, disposable 18 x 1 #100 ea 12/12/20 08/20/21 1/2 testosterone cypionate 200 mg/mL 200 mg IM Q2W #5 mL 06/11/21 08/20/21 intramuscular oil erenumab-aooe 70 mg/mL 70 mg subcut QMONTH #1 mL 08/07/21 08/20/21 subcutaneous auto-injector (Aimovig Autoinjector) rizatriptan 10 mg tablet 10 mg PO .PRN MIGRAINES PRN 08/07/21 08/20/21 migraine headache #14 tabs topiramate 25 mg tablet (Topamax) See Rx Instructions PO QHS #60 tabs 08/07/21 08/20/21 Previous Rx's Medication Instructions Recorded acetaminophen 500 mg tablet 500 mg PO Q6H PRN PRN pain #60 tabs 10/11/19 ibuprofen 600 mg tablet 600 mg PO Q8H PRN PRN pain #60 tabs 10/11/19 safety needles 25 gauge x 1 1/2 #50 ea 12/10/20 (EasyPoint Needle) syringe (disposable) 5 mL (BD #100 ea 12/10/20 Luer-Kayla Syringe) blunt needle, disposable 18 x 1 #100 ea 12/12/20 1/2 testosterone cypionate 200 mg/mL 200 mg IM Q2W #5 mL 06/11/21 intramuscular oil erenumab-aooe 70 mg/mL 70 mg subcut QMONTH #1 mL 08/07/21 subcutaneous auto-injector (Aimovig Autoinjector) rizatriptan 10 mg tablet 10 mg PO .PRN MIGRAINES PRN 08/07/21 migraine headache #14 tabs topiramate 25 mg tablet (Topamax) See Rx Instructions PO QHS #60 tabs 08/07/21 Allergies Allergy/AdvReac Type Severity Reaction Status Date / Time Penicillins Allergy Severe Anaphylaxsi Verified 08/20/21 11:49 s vancomycin Allergy Severe Skin Rash Verified 08/20/21 11:49 latex Allergy Intermediate hives with Verified 08/20/21 11:49 latex powdered gloves General Stated Complaint: Orthopedic GLO: 4 Review of Systems All systems reviewed & are unremarkable except as noted in HPI and below Constitutional Constitutional: Reports as per HPI, Denies chills and Denies fever(s) Eyes Eyes: Denies blurry vision ENT Ears, Nose, Mouth, and Throat: Denies dizziness, Denies sore throat and Denies throat swelling Cardiovascular Cardiovascular: Denies chest pain and Denies dyspnea Respiratory Respiratory: Denies cough and Denies dyspnea Gastrointestinal Gastrointestinal: Denies abdominal pain, Denies diarrhea and Denies vomiting Genitourinary Genitourinary: Denies hematuria and Denies dysuria Musculoskeletal Musculoskeletal: Denies back pain and Denies numbness Comments: R arm pain Integumentary/Breasts Skin/Breast: Denies lesions and Denies rash Neurologic Neurologic: Denies dizziness, Denies localized weakness and Denies numbness Allergic/Immunologic Allergic/Immunologic: Denies throat swelling PFSH All Active Problems (Updated 08/20/21 @ 13:39 by Guera Melgoza DO) Contusion of right forearm (Acute) Sprain of right elbow (Acute) Sprain of right elbow (Acute) Sprain of right wrist (Acute) Mild cognitive impairment (Acute) Odontalgia (Acute) Vertigo (Acute) Right ankle sprain (Acute) Suicidal ideation (Acute) Major depression (Chronic) Depression (Chronic) Arthritis of right acromioclavicular joint (Acute 11/05/16) Abdominal pain (Acute) Current visit - YES Colorectal polyp detected on colonoscopy (Acute) Esophagitis (Acute) Gastritis (Acute) Hypogonadism in male (Acute) Premature ejaculation (Acute) Acute stress reaction (Acute) Peripheral neuropathy (Acute) Carpal tunnel syndrome on both sides (Acute) Ulnar neuropathy of right upper extremity (Acute) Migraine headache with aura (Acute) Right carpal tunnel syndrome (Acute) Chronic headaches (Acute) Medical History Asymptomatic microscopic hematuria Cognitive developmental delay CRI (chronic renal insufficiency) Depression Dyspepsia 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 is patent Hydrocephalus associated with congenital aqueduct stenosis Hypogonadism Hypothyroid Memory impairment Neck pain Persistent headaches Pseudoseizures Seizures Sleep apnea central per report; wearing CPAP Tubular adenoma of colon Surgical History Hx of colonoscopy Hx of shoulder surgery Intracranial shunt with several revisions Per pt. is patent S/P carpal tunnel release right S/P cholecystectomy Social History Smoking/Tobacco Use Status: Never Smoking risk assessment performed?: Yes Alcohol Intake: never Drug use: Never Substance use type: does not use Household members: spouse and children Number of Children: 3 current occupation: [employer] Current gender identity: male What is your relationship status?: Panel score (0-1 are the most socially isolated patients): 1 Seatbelt use: always Do you feel safe at home: Yes Do you feel safe in your relationship?: Yes Exam Const General: cooperative and no acute distress Orientation: alert, awake and oriented x3 HENMT Head: normal to inspection Mouth: oral mucosae normal Eyes General: appearance normal, both eyes and all related structures Neck Neck: normal visual inspection Resp Effort & Inspection: normal respiratory effort and able to speak in complete sentences Cardio Rate: regular rate Skin General skin exam: no rashes or lesions noted Neuro General: patient alert, patient awake and patient oriented x3 Motor: muscle tone normal throughout Extrem Elbow/forearm/wrist images: 1. Tenderness to palpation overlying right dorsal wrist and right radial head. There is also some tenderness overlying right lateral and medial epicondyles and olecranon. There is pain with range of motion but no deformity. Right radial and ulnar pulses intact. Psych Appearance: grossly normal Affect: normal affect Course Vital Signs Vital signs: Vital Signs Temperature 98.2 F 08/20/21 11:47 Pulse 111 H 08/20/21 11:47 Respiratory Rate 18 08/20/21 11:47 Blood Pressure 135/99 H 08/20/21 11:47 Pulse Oximetry 97 08/20/21 11:47 Temperature 98.2 F 08/20/21 11:47 Temperature Source Skin 08/20/21 11:47 Pulse 111 H 08/20/21 11:47 Respiratory Rate 18 08/20/21 11:47 Respiratory Effort 08/20/21 11:49 Blood Pressure 135/99 H 08/20/21 11:47 Blood Pressure Position Sitting 08/20/21 11:47 Pulse Oximetry 97 08/20/21 11:47 Oxygen Delivery Method Room Air 08/20/21 11:47 Oxygen Flow Rate 0 08/20/21 11:47 Pain Level 8 08/20/21 11:47
--- NOTE | 2021-08-20 13:05 | DI.CT_ITS ---
Exam(s) CT UPPER EXTREMITY RT WO EXAM: CT UPPER EXTREMITY RT WO CLINICAL HISTORY: fall onto R arm, pain elbow/wrist, r/o fx. TECHNIQUE: Imaging Protocol: Axial computed tomography images with coronal and sagittal reformatted images were created and reviewed. COMPARISON: No exams were available for comparison FINDINGS: Bones: The osseous structures and articular surfaces are intact. Bony alignment is satisfactory. N o cellulitic or osteomyelitic changes are identified. There is no evidence of joint space narrowing or cystic degeneration seen. No lytic or sclerotic lesions are identified. There is a well corticated tiny osseous density seen adjacent to the olecranon which appears old. Soft Tissues: There is mild edema seen in the soft tissues along the dorsum of the elbow. IMPRESSION: 1. No acute fracture or dislocation. 2. If symptoms persist, a follow-up x-ray may be obtained to assess for evidence of healing. 3. Results of this exam have been verbally communicated with provider. RADIATION DOSE DELIVERED: 412.41mGy.cm Total DLP 412.41mGy.cm Total DLP DATA REPOSITORY: All CT scans at this facility are submitted to the National Radiology Data Registry (NRDR) Dose Index Registry (DIR) with the [employer] (A[employer]). RADIATION OPTIMIZATION: All CT scans at this facility use at least one of these dose optimization te chniques: automated exposure control; mA and/or kV adjustment per patient size (includes targeted exa ms where dose is matched to clinical indication); or iterative reconstruction.
== END 2021-08-20 13:56 | disposition home or self-care (01) ==
PROVIDERS: Emergency Provider Physician Assistant; PCP Nurse Practitioner Family
DX: S53.491A Other sprain of right elbow, initial encounter (principal); S63.591A Other specified sprain of right wrist, initial encounter; W18.39XA Other fall on same level, initial encounter
CPT/HCPCS: 99284; 73200; 99283

== ENCOUNTER → 2021-10-24 09:23 | Outpatient (BNVA) | payer MEDICARE, MEDICAID, SELFPAY | PROVIDERS: PCP Nurse Practitioner Family; Referring Provider Nurse Practitioner Family; Visit Provider Physical Therapy Assistant | DX: Z86.010 Personal history of colon polyps (principal); Z12.11 Encounter for screening for malignant neoplasm of colon ==

== ENCOUNTER 2021-11-11 06:50 | Day surgery (SDC) | payer MEDICARE, MEDICAID, SELFPAY ==
--- NOTE | 2021-11-11 06:58 | W.COLOREPORT ---
Colonoscopy Report Date of procedure: 11/11/21 Pre-op diagnosis general: Colon Cancer Screening/ Hx of Colon polyps Post-op diagnosis procedure note: other (polyps, incomplete prep) Procedure: Colonoscopy with polypectomy Surgeon: Adeola Nowak Anesthesia Type: General:No Airway Estimated blood loss (mL): 3 Pathology: other (ascending colon polyps x5, Transverse polyp x1) Complications: None Disposition: same day Indications: The patient is here for Colonoscopy pre-op.?His last screening was in 2018, which was remarkable for tubular adenomatous polyps x 6.??He has no family history of colon cancer. He has not had any bowel habit changes. -Discussed colonoscopy bowel prep as well as the procedure. Discussed possible complications of the procedure to include bleeding, pain, perforation, missed small lesion/polyp, sore throat, aspiration and adverse reaction to the medications. Questions were answered to patient?s satisfaction. No guarantees were implied or given.? Prep: Miralax/Dulcolax Procedure Start Time: 08:15 Procedure End Time: 08:50 Retraction Time: 18 minutes Findings: 6 polyps incomplete prep with solid stool in the left side of the large intestine. Procedure Description: After informed consent was obtained the patient was taken to the procedure room and placed in a left decubitous position. Monitors were applied and a time out was done. The patients name, date of , procedure, allergies to medications and metal in their body was reviewed. The patient was then sedated. Once sedated and comfortable a rectal exam was done. External exam was normal. Internal exam revealed a normal sphincter tone and no palpable masses. The prostate felt smooth. The scope was then introduced and retro-flexed. No internal hemorrhoids, polyps or masses were identified on retro-flexion. The scope was then advanced to the cecum without difficulty. The ileocecal vlave and appendiceal orifice were identified. The prep was inadequate on the left side. The scope was then slowly retracted over 18 minutes back into the rectum. Polyps were removed with cold forceps in the ascending colon x5 and Transverse colon x1. There was no diverticulosis noted. The scope was removed and the patient was woken up and taken back to Same day surgery in stable condition. The patient tolerated the procedure well and there were no immediate complications. Follow up: The patient should follow up in 6 months unless they develop changes in bowel habits or other new gastrointestinal complaints.
--- NOTE | 2021-11-11 06:59 | W.PM.DSUDISC ---
Discharge Plan Disposition Patient Disposition: HOME Condition: Good Discharge Details Reason For Visit: colonoscopy Attending Provider: Adeola Nowak Primary Care Provider: Irma Gates Home Meds and New Rx's Prescriptions: Continued sertraline [Zoloft] 100 mg tablet 100 mg PO DAILY rizatriptan 10 mg tablet 10 mg PO .PRN MIGRAINES PRN (Reason: migraine headache) Qty: 14 3RF Rx Instructions: Take one tab at onset of migraine. May repeat after 2 hours if needed. No more than 2 tabs in 24 hours. Aimovig Autoinjector 70 mg/mL auto-injector 70 mg subcut QMONTH Qty: 1 11RF topiramate [Topamax] 25 mg tablet See Rx Instructions PO QHS Qty: 60 0RF Rx Instructions: orally every day at bedtime; 75 mg x 1 week, 50 mg x 1 week, 25 mg x 1 week, then stop. (DME) syringe (disposable) [BD Luer-Kayla Syringe] 5 mL syringe See Rx Instructions .ROUTE .MEDSUPPLY Qty: 100 0RF Rx Instructions: use with needle for testosterone inject x4dnpky #2/mo. (DME) EasyPoint Needle 25 gauge x 1 1/2 needle See Rx Instructions .ROUTE .MEDSUPPLY Qty: 50 0RF Rx Instructions: Use one needle to inject testosterone q 2 week #2/month. (DME) blunt needle, disposable 18 x 1 1/2 needle See Rx Instructions .ROUTE .MEDSUPPLY Qty: 100 0RF Rx Instructions: Use one needle to draw up testosterone q 2 weeks. #2/month testosterone cypionate 200 mg/mL oil 200 mg IM Q2W Qty: 5 0RF levothyroxine 25 mcg tablet 25 mcg PO DAILY acetaminophen 500 mg tablet 500 mg PO Q6H PRN PRN (Reason: pain) Qty: 60 3RF ibuprofen 600 mg tablet 600 mg PO Q8H PRN PRN (Reason: pain) Qty: 60 0RF amitriptyline 100 mg tablet 100 mg PO QHS Discontinued bisacodyl [Dulcolax (bisacodyl)] 5 mg tablet,delayed release (DR/EC) 5 mg PO ONCE Qty: 4 0RF Rx Instructions: Take according to provider's instructions for colonoscopy prep. polyethylene glycol 3350 17 gram/dose powder 17 g PO ONCE Qty: 238 0RF Rx Instructions: To be taken as directed by prescriber's office for colonoscopy prep. Discharge Instructions Instructions: Colorectal Polyps (DC) Additional Instructions: Findings: 5 polyps A lot of stool in the left side of your colon Follow up: 6 months due to incomplete prep Please call if you develop: fevers >101.5 Nausea or Vomiting Abdominal pain that is not transient Rectal bleeding that is more then a tbsp A hard abdomen and inability to pass gas DAY SURGERY UNIT POST ENDOSCOPY INSTRUCTIONS Instructions for everyone who is given Anesthesia: For your safety, please do the following for the next 24 Hours: a. Do not drive or operate dangerous equipment b. Do not drink alcohol beverages or use any recreational drugs for the first 24 hours or while taking pain medications. The medications in your body may have a reaction that can be dangerous. c. Do not make any important decisions or sign any important papers 1. Generally there are no restrictions on your activity after a day or so has gone by, but you may feel a bit fatigued for a few days. 2. After you arrive home you may have a light meal and return to a normal diet as you can tolerate it without feeling sick to your stomach. 3. After surgery, you may feel pain or discomfort. This should be only transient, but if it persists please contact your doctor. 4. If there are any questions regarding the findings of your procedure, please feel free to contact your doctor. 6. If you are unable to contact your doctor with a problem, contact the hospital at [phone]. 7. Continue all your regular medications unless directed otherwise. I understand the above instructions and have no questions. Signature of Patient or Responsible Adult Escort Date/Time Name of Responsible Adult Escort Signature of Nurse Date/Time Activity:: Activity as Tolerated Diet:: As Tolerated Discharge Orders Discharge Orders: Discharge Order (Routine); Ordered 11/11/21 Ordered By: Adeola Nowak
[2021-11-11 07:02] VITALS: BP 125/101; PULSE 106; RESP 18; TEMP 36.3; O2SAT 96
[2021-11-11] MEDS: Lactated Ringers 1,000 ML 80 ML IV (07:31)
--- NOTE | 2021-11-11 07:57 | W.ANESPRE ---
General Info Date of Service Date Performed: 11/11/21 Height: 5 ft 6 in Weight: 89.4 kg Body Mass Index (BMI): 31.8 Surgical Procedure: Operation Date: 11/11/21 08:35 Proposed Procedure Side Surgeon kajal Nowak MD Meds Allergies and Home Medications Allergies Allergy/AdvReac Type Severity Reaction Status Date / Time Penicillins Allergy Severe Anaphylaxsis, Verified 11/11/21 06:56 RASH vancomycin Allergy Severe Skin Rash Verified 11/11/21 06:56 latex Allergy Intermediate hives with Verified 11/11/21 06:56 latex powdered gloves Home Medication Medication Instructions Recorded levothyroxine 25 mcg tablet 25 mcg PO DAILY 01/27/19 acetaminophen 500 mg tablet 500 mg PO Q6H PRN PRN pain #60 tabs 10/11/19 ibuprofen 600 mg tablet 600 mg PO Q8H PRN PRN pain #60 tabs 10/11/19 amitriptyline 100 mg tablet 100 mg PO QHS 10/26/19 sertraline 100 mg tablet (Zoloft) 100 mg PO DAILY 10/11/20 safety needles 25 gauge x 1 1/2 #50 ea 12/10/20 (EasyPoint Needle) syringe (disposable) 5 mL (BD #100 ea 12/10/20 Luer-Kayla Syringe) blunt needle, disposable 18 x 1 #100 ea 12/12/20 1/2 erenumab-aooe 70 mg/mL 70 mg subcut QMONTH #1 mL 08/07/21 subcutaneous auto-injector (Aimovig Autoinjector) rizatriptan 10 mg tablet 10 mg PO .PRN MIGRAINES PRN 08/07/21 migraine headache #14 tabs topiramate 25 mg tablet (Topamax) See Rx Instructions PO QHS #60 tabs 08/07/21 testosterone cypionate 200 mg/mL 200 mg IM Q2W #5 mL 10/21/21 intramuscular oil bisacodyl 5 mg tablet,delayed 5 mg PO ONCE #4 tabs 10/24/21 release (Dulcolax (bisacodyl)) polyethylene glycol 3350 17 17 g PO ONCE #238 grams 10/24/21 gram/dose oral powder Current Visit Medications: Current Medications Generic Name Dose Route Start Last Admin Trade Name Freq PRN Reason Stop Dose Admin Hyoscyamine Sulfate 0.125 mg 11/11/21 07:00 Hyoscyamine 0.125 Mg Sl/Oral/Chew SL DIRECTED PRN Ringer's Solution 1,000 mls @ 80 mls/hr 11/11/21 06:00 11/11/21 07:31 IV 12/08/21 23:59 80 mls/hr INFUSION DAMIEN Administration IV Miscellaneous Supplies 1 each 11/11/21 06:00 Iv Access IV 12/08/21 23:59 DIRECTED DAMIEN Ondansetron HCl 4 mg 11/11/21 07:00 Ondansetron 4 Mg/2 Ml Vial IVP Q4H PRN PRN Nausea / Vomiting Sodium Chloride 0 ml 11/11/21 06:00 Normal Saline Flush 10 Ml Syr IV 12/08/21 23:59 PRN PRN Sodium Chloride 0 ml 11/11/21 06:00 Normal Saline 10 Ml Vial IJ 12/08/21 23:59 DIRECTED PRN Sterile Water 0 ml 11/11/21 06:00 Water,Injection,Sterile 10 Ml Vial IJ 12/08/21 23:59 DIRECTED PRN PFSH Active Problems Active Problems: Problem Status Onset Code Chronic headaches Lateral epicondylitis of right elbow M77.11 Arthritis of right acromioclavicular joint 11/05/16 M19.011 Biceps tendinitis of right shoulder 11/05/16 M75.21 Right rotator cuff tendinitis 10/01/16 M75.81 Abdominal pain R10.9 Colorectal polyp detected on colonoscopy K63.5 Esophagitis K20.9 Gastritis K29.70 Hypogonadism in male E29.1 Premature ejaculation F52.4 Acute stress reaction F43.0 Peripheral neuropathy G62.9 Carpal tunnel syndrome on both sides G56.03 Ulnar neuropathy of right upper extremity G56.21 Migraine headache with aura G43.109 Right carpal tunnel syndrome G56.01 Depression F32.9 Major depression F32.9 Suicidal ideation R45.851 Right ankle sprain S93.401A Odontalgia K08.89 Vertigo R42 Mild cognitive impairment G31.84 Medical History Medical History Asymptomatic microscopic hematuria Cognitive developmental delay CRI (chronic renal insufficiency) Depression Dyspepsia 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 is patent Hydrocephalus associated with congenital aqueduct stenosis Hypogonadism Hypothyroid Memory impairment Neck pain Persistent headaches Pseudoseizures Seizures pt. states last seizures was when he was a kid Sleep apnea central per report; wearing CPAP Tubular adenoma of colon Surgical History Surgical History Hx of colonoscopy Hx of shoulder surgery Intracranial shunt with several revisions Per pt. is patent S/P carpal tunnel release right S/P cholecystectomy Tobacco Smoking/Tobacco Use Status: Never Alcohol Alcohol Intake: never Substance Use Substance use: Never Substance use type: does not use Vital Signs and Lab Results Vital Signs Most Recent Vital Signs in EMR: Most Recent Vital Signs Temp Pulse Resp BP Pulse Ox 36.3 C L 106 H 18 125/101 H 96 11/11/21 07:02 11/11/21 07:02 11/11/21 07:02 11/11/21 07:02 11/11/21 07:02 Lab Results Blood Type / Crossmatch: No Data to Display Complete Blood Count: No Data to Display Complete Metabolic Panel: No Data to Display Liver Function Panel: No Data to Display Coagulation Panel: No Data to Display Cardiac Panel: No Data to Display Arterial Blood Gas: No Data to Display Venous Blood Gas: No Data to Display Pancreas Panel: No Data to Display Thyroid Panel: No Data to Display Infectious Disease: No Data to Display Blood Cultures: No Data to Display Toxicology Panel: No Data to Display Imaging and Studies Imaging and Studies Study information below may be from another EMR and interpreted by another provider. Please see original notes in EMR for more complete details. Echocardiogram Summary: 04/2012: FINDINGS: LEFT VENTRICLE: Normal size and systolic function. Normal regional wall motion. ESTIMATED LVEF: 68% RIGHT VENTRICLE: Normal size and function. ATRIA: Normal biatrial size. AORTIC VALVE: Trileaflet, opens well without regurgitation. MITRAL VALVE: Anatomically normal without regurgitation. TRICUSPID VALVE: Opens well with trace regurgitation. PULMONIC VALVE: Normal. GREAT VESSELS: Normal. RSV/PA PRESSURE: 33 mmHg. PERICARDIUM: No effusion. Anesthesia Assessment and Plan Anesthesia History Personal History: No History of Anesthesia Complications Family History: No Family History of Anesthesia Complications Exercise Tolerance Exercise Tolerance: Metabolic Equivalents>4 Pertinent Negatives Pertinent Negatives: No Symptoms of GERD, No Major Cardiovascular Symptoms or Complaints and No Major Pulmonary Symptoms or Complaints Cardiac & Pulmonary Exam Cardiac Exam: Normal S1/S2 Heart Sounds Pulmonary Exam: Clear Bilateral Breath Sounds Implantable Cardiac Device Does patient have a Pacemaker or an ICD?: No Airway Exam Known Difficult Airway: No Mallampati Class: 1 Mouth Opening: Normal (> 3cm) Thyromental Distance: Greater than 3 cm Facial Hair: Full [place] Neck Range of Motion: Full ROM Neck Circumference: Normal Teeth Condition: Edentulous ASA Classification ASA Score: ASA 3 Emergency Case?: No NPO Status NPO Status: NPO Clears >2 hours, Solids >8 hours Anesthesia Plan Resuscitation Status: Full Code Anesthesia Technique: General Anesthesia Airway Planned: Natural Airway Monitors Used: Standard Monitors
[2021-11-11 08:01] VITALS: BMI 31.8
--- NOTE | 2021-11-11 08:30 | BOWEL_PTH ---
PATIENT: Chapin Costa LOC: [facility] U#:[id number] AGE/SX: 50/M ROOM: RE11/11/[address]: Adeola Nowak MD : 1970 BED: DIS: 11/11/2021 SPEC #: [id number] RECD: 11/11/21 12:21 STATUS: JOHN RESerenity #: [id number] COLLIN: 11/11/21 08:[address]: Adeola Nowak DEPT: Surgical Specimen RECD BY: Lupe Pierce ENTERED: 11/11/21 12:25 SP TYPE: Bowel OTHR DR: Irma Gates Tissues: 1 - BIOPSY BOWEL 2 - BIOPSY BOWEL Procedures: GROSS AND MICRO LEVEL 4 Comments: [id number]
[2021-11-11 09:00] VITALS: BP 121/79; PULSE 87; RESP 18; TEMP 36.1; O2SAT 93
--- NOTE | 2021-11-11 09:07 | W.ANESPOSTOP ---
Postoperative Evaluation Date, Time and Location Date Performed: 11/11/21 Time Performed: 09:00 Patient Location: Day Surgery Unit Vital Signs Most Recent Imported Vital Signs: Most Recent Vital Signs Temp Pulse Resp BP Pulse Ox 36.1 C L 87 18 121/79 93 11/11/21 09:00 11/11/21 09:00 11/11/21 09:00 11/11/21 09:00 11/11/21 09:00 Pain Score Most Recent Pain Score: Most Recent Pain Score Pain Level 0 11/11/21 07:02 Assessment Mental Status: Awake (Alert & Oriented to Patient Baseline) Airway and Respiratory Function: Patent airway with normal (patient baseline) respiratory exam Cardiovascular Function: Hemodynamically Stable Hydration Status: Adequately Hydrated Nausea & Vomiting: No Nausea or Vomiting Pain: Pt. Denies Any Pain Peripheral Nerve Block: Patient did not receive a nerve block
[2021-11-11 09:29] VITALS: BP 124/81; PULSE 85; RESP 16; TEMP 36.3; O2SAT 93
== END 2021-11-11 10:00 | disposition home or self-care (01) ==
PROVIDERS: PCP Nurse Practitioner Family; Visit Provider Surgery
PROC: 0DJD8ZZ Inspection of Lower Intestinal Tract, Via Natural or Artificial Opening Endoscopic (ICD-10-PCS; CPT 45378; principal; 2021-11-11 08:30)
DX: Z12.11 Encounter for screening for malignant neoplasm of colon (principal); K63.5 Polyp of colon; Z86.010 Personal history of colon polyps
CPT/HCPCS: 45380; 88305

== ENCOUNTER → 2021-12-04 08:52 | Outpatient (BNVA) | payer MEDICARE, MEDICAID, SELFPAY | PROVIDERS: PCP Nurse Practitioner Family; Referring Provider Nurse Practitioner Family; Visit Provider Nurse Practitioner Adult Health | DX: G43.909 Migraine, unspecified, not intractable, without status migrainosus (principal); G47.00 Insomnia, unspecified; F39 Unspecified mood [affective] disorder | CPT/HCPCS: 99213 ==

== ENCOUNTER 2021-12-20 21:08 | Emergency (ER) | payer MEDICARE, MEDICAID, SELFPAY ==
[2021-12-20 21:15] VITALS: BP 127/98; PULSE 124; RESP 15; TEMP 36.9; O2SAT 98
--- NOTE | 2021-12-20 21:19 | DI.CT_ITS ---
Exam(s) CT ABDOMEN PELVIS W EXAM: CT ABDOMEN PELVIS W CLINICAL HISTORY: vomiting, epigastric pain TECHNIQUE: Imaging Protocol: Axial computed tomography images with coronal and sagittal reformatted images were created and reviewed CONTRAST MATERIAL: Intravenous: Omnipaque 350 Contrast volume:100 mL Oral: No FINDINGS: ABDOMEN: Lung Bases: Normal where visualized. Liver: Normal density. No measurable mass. Portal, Superior Mesenteric, and Splenic Veins: Unremarkable. Gallbladder and Biliary Tract: Status post cholecystectomy. No biliary ductal dilatation. Pancreas: Normal density, no abnormal calcifications or inflammatory process. Spleen: Normal. Adrenals: No masses seen. Kidneys: Normal size, contour and axis. No radiodense stones or obstructive uropathy. No masses seen. Abdominal Aorta: Abdominal portion non-dilated. Bowel: There is mild wall thickening of small bowel loops in the left abdomen. Mild stranding is see n in the surrounding soft tissues. No evidence of appendicitis. Peritoneal Cavity: No ascites, collection or mesenteric inflammatory response. No free air. Lymph Nodes: Within normal limits. Bones: Within normal limits for the patient's age. Soft Tissues: There is a ventriculoperitoneal shunt in place. There are small bilateral fat containi ng inguinal hernias. PELVIS: Bladder: Symmetric distention, no gross wall thickening. Reproductive Organs: Unremarkable as visualized. Lymph Nodes: Within normal limits. Bones: Within normal limits for the patient's age. IMPRESSION: Findings suggestive of a mild proximal infectious/inflammatory enteritis. RADIATION DOSE DELIVERED: 973.01mGy.cm Total DLP DATA REPOSITORY: All CT scans at this facility are submitted to the National Radiology Data Registry (NRDR) Dose Index Registry (DIR) with the [employer] (A[employer]). RADIATION OPTIMIZATION: All CT scans at this facility use at least one of these dose optimization te chniques: automated exposure control; mA and/or kV adjustment per patient size (includes targeted exa ms where dose is matched to clinical indication); or iterative reconstruction.
--- NOTE | 2021-12-20 21:26 | W.ED.GENAD ---
Discharge Plan Disposition Patient Disposition: HOME Condition: Good Discharge Details Clinical Impression: Nausea & vomiting, Epigastric discomfort, Ileus Primary Care Provider: Irma Gates ED Provider: Andrew Grant Home Meds and New Rx's Prescriptions: New ondansetron 4 mg tablet,disintegrating 4 mg PO Q8H Qty: 14 0RF No Action sertraline [Zoloft] 100 mg tablet 100 mg PO DAILY rizatriptan 10 mg tablet 10 mg PO .PRN MIGRAINES PRN (Reason: migraine headache) Qty: 14 3RF Rx Instructions: Take one tab at onset of migraine. May repeat after 2 hours if needed. No more than 2 tabs in 24 hours. Aimovig Autoinjector 70 mg/mL auto-injector 70 mg subcut QMONTH Qty: 1 11RF (DME) syringe (disposable) [BD Luer-Kayla Syringe] 5 mL syringe See Rx Instructions .ROUTE .MEDSUPPLY Qty: 100 0RF Rx Instructions: use with needle for testosterone inject [id number] #2/mo. (DME) blunt needle, disposable 18 x 1 1/2 needle See Rx Instructions .ROUTE .MEDSUPPLY Qty: 100 0RF Rx Instructions: Use one needle to draw up testosterone q 2 weeks. #2/month testosterone cypionate 200 mg/mL oil 200 mg IM Q2W Qty: 5 0RF (DME) BD Regular Bevel [place] 18 gauge x 1 1/2 needle See Rx Instructions .ROUTE .COMPLEX Qty: 2 4RF Dose Instruction: USE 1 NEEDLE TO DRAW UP TESTOSTERONE EVERY 2 WEEKS Rx Instructions: USE 1 NEEDLE TO DRAW UP TESTOSTERONE EVERY 2 WEEKS metoprolol succinate 25 mg tablet extended release 24 hr 25 mg PO DAILY risperidone [Risperdal] 0.5 mg tablet 0.5 mg PO QHS omeprazole 20 mg capsule,delayed release(DR/EC) 20 mg PO DAILY benztropine 0.5 mg tablet 0.5 mg PO DAILY Latuda 40 mg tablet 40 mg PO DAILY Rx Instructions: must administer with food (at least 350 calories) topiramate [Topamax] 25 mg tablet 25 mg PO BID levothyroxine 25 mcg tablet 25 mcg PO DAILY acetaminophen 500 mg tablet 500 mg PO Q6H PRN PRN (Reason: pain) Qty: 60 3RF ibuprofen 600 mg tablet 600 mg PO Q8H PRN PRN (Reason: pain) Qty: 60 0RF amitriptyline 100 mg tablet 100 mg PO QHS Discharge Instructions Instructions: Acute Nausea and Vomiting (ED) Additional Instructions: As we discussed together you have a mild ileus. Please stick with a clear liquid diet for the 3 to 5 days. Please drink plenty fluids and take the Zofran as needed for nausea. If your symptoms persist then that this could potentially mean that you have transition to an obstruction. If your symptoms do persist please return immediately for reassessment and reevaluation. If you notice any worsening of your symptoms, or any new symptoms such as vomiting, diarrhea, fever, chills, shortness of breath, chest pain, numbness, weakness, or fainting , please return immediately to the emergency department for reevaluation. Please follow up with your primary care provider as soon as possible for reassessment and reevaluation. As always, it was a pleasure participating in your medical care today. Referrals: Irma Gates [Primary Care Provider] - Medical Decision Making 51-year-old male with a past medical history of hydrocephalus, migraines, seizures on Tegretol, 37 revisions of his shunt, depression, presents today for evaluation of epigastric pain and vomiting. Patient states that he had his first pill of Adderall today at 9 AM. Shortly thereafter he developed some nausea and vomiting. This is continued throughout the day. The patient and his mother state that they went to urgent care earlier today, and were told that the symptoms are likely secondary to the Adderall. However unfortunately at home his symptoms continued and worsened and he can no longer keep anything down. He denies any alcohol use. He does admit to occasional soft or liquid stools. He denies any blood in his vomit or stools. He denies having symptoms like this before. Past surgical history is positive for multiple distal shunt revisions, as well as cholecystectomy. No other complaints at this time. No other modifying factors. Physical exam demonstrates mild distention, mild epigastric achiness. No guarding or rebound. Dry mucous membranes. Differential is highest for pancreatitis, small bowel obstruction, or other acute abdominal process. We will rehydrate, get a CT scan of the abdomen, treat his nausea and vomiting, monitor closely and reassess. 10:47 PM Laboratory work-up has returned and is stable. The patient does have mildly elevated white count, hemoglobin is also elevated which is suggestive of a hemoconcentration picture. Creatinine and GFR stable. Lipase normal. Patient is still being rehydrated. Patient's nausea has completely resolved. He still does have some epigastric pain. We are pending formal read from CT scan. Patient otherwise feels improved. 1057 On reassessment patient is feeling improved. He has been able to tolerate p.o. CT scan results have returned and show evidence of mild enteritis, and a mild ileus. No evidence of obstruction though. With his ability to tolerate p.o., as well as his improvement of his symptoms and absence of obstruction I do feel that he is a candidate for discharge with a clear liquid diet, Zofran, and close follow-up. His mother is a nurse, she feels very comfortable with this plan. Patient will be discharged after fluids. I have extensively reviewed the treatment plan and discharge instructions with the patient and their family. I have addressed all patient concerns at this time. The patient and family was made aware of what symptoms to monitor for that would warrant a return to the emergency department. Discussed the plan with the patient and family, they demonstrate verbal understanding and agreement with our assessment and plan at this time. The documentation in this chart was dictated using [employer] dictation software. Please excuse any dictation errors. FINDINGS: Tubes, catheters and devices: Right-sided EXPLOSIVE ORDNANCE DISPOSAL 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 tubing, as expected. Liver: Mildly fatty liver. No hepatic masses. Gallbladder and bile ducts: Cholecystectomy. No significant biliary dilation or radiopaque stones in the biliary tree. Pancreas: No ductal dilation. No masses. Spleen: No splenomegaly or focal lesions. Adrenal glands: No mass. Kidneys and ureters: No hydronephrosis. No renal masses. Stomach and bowel: Minor wall thickening in a clumped appearing loop of left mid abdominal small bowel associated with minor dilation and air-fluid levels. No focal transition point however. The distal small bowel is decompressed. No colitis. Appendix: No evidence of appendicitis. Intraperitoneal space: No free air. No significant fluid collection. Vasculature: No abdominal aortic aneurysm. Lymph nodes: No significantly enlarged lymph nodes. Urinary bladder: Unremarkable as visualized. Reproductive: Unremarkable as visualized. Bones/joints: No acute fracture. Soft tissues: Chronic metallic density left mid abdominal wall is similar to prior. IMPRESSION: 1. Mild proximal enteritis associated with a focal mild ileus. 2. Additional findings as described. Thank you for allowing us to participate in the care of your patient. Dictated and Authenticated by: Marie Palomo MD 12/20/2021 10:36 PM Eastern Time ([place] & [place]) HPI General Date/Time Provider Initiated Documentation: 12/20/21 21:09. HPI Narrative: 51-year-old male with a past medical history of hydrocephalus, migraines, seizures on Tegretol, 37 revisions of his shunt, depression, presents today for evaluation of epigastric pain and vomiting. Patient states that he had his first pill of Adderall today at 9 AM. Shortly thereafter he developed some nausea and vomiting. This is continued throughout the day. The patient and his mother state that they went to urgent care earlier today, and were told that the symptoms are likely secondary to the Adderall. However unfortunately at home his symptoms continued and worsened and he can no longer keep anything down. He denies any alcohol use. He does admit to occasional soft or liquid stools. He denies any blood in his vomit or stools. He denies having symptoms like this before. Past surgical history is positive for multiple distal shunt revisions, as well as cholecystectomy. No other complaints at this time. No other modifying factors. Related Data Home Medications Medication Instructions Recorded Confirmed levothyroxine 25 mcg tablet 25 mcg PO DAILY 01/27/19 12/20/21 acetaminophen 500 mg tablet 500 mg PO Q6H PRN PRN pain #60 tabs 10/11/19 12/20/21 ibuprofen 600 mg tablet 600 mg PO Q8H PRN PRN pain #60 tabs 10/11/19 12/20/21 amitriptyline 100 mg tablet 100 mg PO QHS 10/26/19 12/20/21 sertraline 100 mg tablet (Zoloft) 100 mg PO DAILY 10/11/20 12/20/21 syringe (disposable) 5 mL (BD #100 ea 12/10/20 12/20/21 Luer-Kayla Syringe) blunt needle, disposable 18 x 1 #100 ea 12/12/20 12/20/2102/24 erenumab-aooe 70 mg/mL 70 mg subcut QMONTH #1 mL 08/07/21 12/04/21 subcutaneous auto-injector (Aimovig Autoinjector) rizatriptan 10 mg tablet 10 mg PO .PRN MIGRAINES PRN 08/07/21 12/20/21 migraine headache #14 tabs testosterone cypionate 200 mg/mL 200 mg IM Q2W #5 mL 10/21/21 12/20/21 intramuscular oil needle (disp) 18 G 18 gauge x 1 #2 ea 12/16/21 12/20/212 (BD Regular Bevel [place]) benztropine 0.5 mg tablet 0.5 mg PO DAILY 12/18/21 12/20/21 lurasidone 40 mg tablet (Latuda) 40 mg PO DAILY 12/18/21 metoprolol succinate 25 mg 25 mg PO DAILY 12/18/21 tablet,extended release 24 hr omeprazole 20 mg capsule,delayed 20 mg PO DAILY 12/18/21 release risperidone 0.5 mg tablet 0.5 mg PO QHS 12/18/21 (Risperdal) topiramate 25 mg tablet (Topamax) 25 mg PO BID 12/18/21 ondansetron 4 mg disintegrating 4 mg PO Q8H #14 tabs 12/20/21 tablet Previous Rx's Medication Instructions Recorded acetaminophen 500 mg tablet 500 mg PO Q6H PRN PRN pain #60 tabs 10/11/19 ibuprofen 600 mg tablet 600 mg PO Q8H PRN PRN pain #60 tabs 10/11/19 syringe (disposable) 5 mL (BD #100 ea 12/10/20 Luer-Kayla Syringe) blunt needle, disposable 18 x 1 #100 ea 12/12/2002/24 erenumab-aooe 70 mg/mL 70 mg subcut QMONTH #1 mL 08/07/21 subcutaneous auto-injector (Aimovig Autoinjector) rizatriptan 10 mg tablet 10 mg PO .PRN MIGRAINES PRN 08/07/21 migraine headache #14 tabs testosterone cypionate 200 mg/mL 200 mg IM Q2W #5 mL 10/21/21 intramuscular oil needle (disp) 18 G 18 gauge x 1 #2 ea 12/16/21 1 (BD Regular Bevel [place]) ondansetron 4 mg disintegrating 4 mg PO Q8H #14 tabs 12/20/21 tablet Allergies Allergy/AdvReac Type Severity Reaction Status Date / Time Penicillins Allergy Severe Anaphylaxsis, Verified 12/20/21 21:24 RASH vancomycin Allergy Severe Skin Rash Verified 12/20/21 21:24 latex Allergy Intermediate hives with Verified 12/20/21 21:24 latex powdered gloves General Stated Complaint: Nausea/Vomit/Diar GLO: 3 Review of Systems All systems reviewed & are unremarkable except as noted in HPI and below PFSH All Active Problems (Updated 12/20/21 @ 23:02 by Andrew Grant DO) Nausea & vomiting (Acute) Epigastric discomfort (Acute) Ileus (Acute) Chronic headaches (Acute) Arthritis of right acromioclavicular joint (Acute 11/05/16) Abdominal pain (Acute) Current visit - YES Colorectal polyp detected on colonoscopy (Acute) Esophagitis (Acute) Gastritis (Acute) Hypogonadism in male (Acute) Premature ejaculation (Acute) Acute stress reaction (Acute) Peripheral neuropathy (Acute) Carpal tunnel syndrome on both sides (Acute) Ulnar neuropathy of right upper extremity (Acute) Migraine headache with aura (Acute) Right carpal tunnel syndrome (Acute) Depression (Chronic) Major depression (Chronic) Suicidal ideation (Acute) Right ankle sprain (Acute) Odontalgia (Acute) Vertigo (Acute) Mild cognitive impairment (Acute) Medical History Asymptomatic microscopic hematuria Cognitive developmental delay CRI (chronic renal insufficiency) Depression Dyspepsia 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 is patent Hydrocephalus associated with congenital aqueduct stenosis Hypogonadism Hypothyroid Memory impairment Neck pain Persistent headaches Pseudoseizures Seizures pt. states last seizures was when he was a kid Sleep apnea central per report; wearing CPAP Tubular adenoma of colon Surgical History Hx of colonoscopy (~10/2021) Hx of shoulder surgery Intracranial shunt with several revisions Per pt. is patent S/P carpal tunnel release right S/P cholecystectomy Social History Smoking/Tobacco Use Status: Never Smoking risk assessment performed?: Yes Alcohol Intake: never Drug use: Never Substance use type: does not use Household members: spouse and children Number of Children: 3 current occupation: [employer], [employer] Current gender identity: male What is your relationship status?: Panel score (0-1 are the most socially isolated patients): 1 Seatbelt use: always Do you feel safe at home: Yes Do you feel safe in your relationship?: Yes Exam Narrative Exam Narrative: 1.Const: Well-nourished, Well-developed, appearing stated age 2.Eyes: PERRL, no conjunctival injection, and symmetrical lids. 3.ENT: Atraumatic external nose and ears. Dry t MM. Neck: Symmetric, trachea midline, No thyromegaly. 4.CVS: +S1/S2, No murmurs or gallops. Peripheral pulses 2+ and equal in all extremities. Brisk capillary refill in all extremities. 5.RESP: Unlabored respiratory effort. Clear to auscultation bilaterally. No wheezes rales or rhonchi 6.GI: Soft, mild distention, mild epigastric achiness/tenderness. No guarding. No rebound. No signs of an acute surgical abdomen. 7.MSK: Normocephalic/Atraumatic, Extremities w/o deformity or ttp No cyanosis or clubbing, Normal movement of all extremities 8.Skin: Warm, Dry. No rashes or lesions. 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 Sensation grossly intact, no focal neurologic deficits. 10.Psych: (AAO) x3. Appropriate mood and affect Course Vital Signs Vital signs: Vital Signs Temperature 36.9 C 12/20/21 21:15 Pulse 124 H 12/20/21 21:15 Respiratory Rate 15 12/20/21 21:15 Blood Pressure 127/98 H 12/20/21 21:15 Pulse Oximetry 98 12/20/21 21:15 Temperature 36.9 C 12/20/21 21:15 Temperature Source Oral 12/20/21 21:15 Pulse 124 H 12/20/21 21:15 Respiratory Rate 15 12/20/21 21:15 Blood Pressure 127/98 H 12/20/21 21:15 Pulse Oximetry 98 12/20/21 21:15 Oxygen Delivery Method Room Air 12/20/21 21:15 Oxygen Flow Rate 0 12/20/21 21:15 Pain Level 8 12/20/21 21:15
[2021-12-20] MEDS: Normal Saline 1,000 ML 1000 ML IV (21:57)
[2021-12-20] MEDS: Ondansetron 4 MG/2 ML VIAL IVP (21:58)
[2021-12-20 22:00] LABS: Abs Immature Grans 0.07 10^3/uL (0.0-0.06); Absolute Basophil Count 0.08 10^3/uL (0.0-0.2); Absolute Eosinophil Count 0.07 10^3/uL (0.0-0.7); Absolute Monocyte Count 0.64 10^3/uL (0.1-0.8); Basophils % 0.5; Eosinophils % 0.4; HCT 54.2 % (40.0-50.0); HGB 18.7 g/dL (13.5-17.5); Immature Grans % 0.4; Lymphocytes % 10.6; MCH 30.6 pg (27.0-33.0); MCHC 34.5 % (32.0-36.0); MCV 89 fL (80-95); MPV 8.6 fL (8.0-11.0); Monocytes % 3.8; Neutrophils % 84.3; Platelet Count 303 10^3/uL (130-400); RDW 12.9 % (11.8-14.1); RDW-SD 41.8 fL; WBC 16.81 10^3/uL (4.4-10.8)
[2021-12-20 22:01] LABS: Absolute Lymphocyte Count 1.78 10^3/uL (1.2-3.4); Absolute Neutrophil Count 14.17 10^3/uL (1.2-6.7)
[2021-12-20] MEDS: Normal Saline Flush 10 ML SYR IVP (22:01)
[2021-12-20 22:02] LABS: RBC 6.12 10^6/uL (4.36-5.78)
[2021-12-20] MEDS: Omnipaque 350 MG/ML 100 ML BTL IJ (22:05)
[2021-12-20 22:15] LABS: ALT 31 U/L (16-63); AST 16 U/L (15-37); Albumin 4.7 g/dL (3.4-5.0); Alkaline Phosphatase 103 U/L (46-116); Anion Gap 9.1 mmol/L (3-11); BUN 13 mg/dL (7-18); Bilirubin, Total 0.5 mg/dL (0.2-1.0); CO2 26.9 mmol/L (21.0-32.0); CREATININE 1.6 mg/dL (0.70-1.30); Calcium 10.1 mg/dL (8.5-10.1); Chloride 100 mmol/L (98-107); Estimated GFR 52.49 (mL/min/1.73m2); Glucose 135 mg/dL (74-106); Lipase 66 U/L (73-393); Potassium 4.4 mmol/L (3.5-5.1); Sodium 136 mmol/L (136-145); Total Protein 9.5 g/dL (6.4-8.2)
--- NOTE | 2021-12-20 22:37 | DI.VRAD_ITS ---
PROCEDURE INFORMATION: Exam: CT Abdomen And Pelvis With Contrast Exam date and time: 12/20/2021 22:12 Age: 51 years old Clinical indication: Vomiting; Other: Epigastric pain TECHNIQUE: Imaging protocol: Computed tomography of the abdomen and pelvis with contrast. Radiation optimization: All CT scans at this facility use at least one of these dose optimization techniques: automated exposure control; mA and/or kV adjustment per patient size (includes targeted exams where dose is matched to clinical indication); or iterative reconstruction. Contrast material: OMNIPAQUE 350; Contrast volume: 100 ml; Contrast route: INTRAVENOUS (IV); COMPARISON: CT Private^ROUTINE ABDOMEN PELVIS WITH CONTRAST (Adult) 11/10/2017 17:12 FINDINGS: Tubes, catheters and devices: Right-sided HOME EXTENSION AGENT shunt tubing, as expected. Liver: Mildly fatty liver. No hepatic masses. Gallbladder and bile ducts: Cholecystectomy. No significant biliary dilation or radiopaque stones in the biliary tree. Pancreas: No ductal dilation. No masses. Spleen: No splenomegaly or focal lesions. Adrenal glands: No mass. Kidneys and ureters: No hydronephrosis. No renal masses. Stomach and bowel: Minor wall thickening in a clumped appearing loop of left mid abdominal small bowel associated with minor dilation and air-fluid levels. No focal transition point however. The distal small bowel is decompressed. No colitis. Appendix: No evidence of appendicitis. Intraperitoneal space: No free air. No significant fluid collection. Vasculature: No abdominal aortic aneurysm. Lymph nodes: No significantly enlarged lymph nodes. Urinary bladder: Unremarkable as visualized. Reproductive: Unremarkable as visualized. Bones/joints: No acute fracture. Soft tissues: Chronic metallic density left mid abdominal wall is similar to prior. IMPRESSION: 1. Mild proximal enteritis associated with a focal mild ileus. 2. Additional findings as described. Dictated and Authenticated by: Marie Palomo MD. Ordering:DYLAN Morales MD
[2021-12-20] MEDS: Ketorolac 15 MG/ML VIAL IVP (22:53)
--- NOTE | 2021-12-21 17:34 | NUR.NOTE ---
Nursing Note: Patient called stating that the arm that had an IV in it at this visit, was now swollen and itchy. Asked if he should be seen. Told patient that he should return for evaluation to be check it out.
== END 2021-12-20 23:58 | disposition home or self-care (01) ==
PROVIDERS: Emergency Provider Student in an Organized Health Care Education/Training Program; PCP Nurse Practitioner Family
DX: K56.7 Ileus, unspecified (principal); K52.9 Noninfective gastroenteritis and colitis, unspecified; D72.829 Elevated white blood cell count, unspecified; R71.8 Other abnormality of red blood cells; I10 Essential (primary) hypertension
CPT/HCPCS: 80053; 83690; 96361; 96374; 96375; 99285; 74177; 85025; 99284; J1885; J2405; J3490

== ENCOUNTER 2021-12-21 17:51 | Emergency (ER) | payer MEDICARE, MEDICAID, SELFPAY ==
[2021-12-21 17:54] VITALS: BP 141/87; PULSE 84; RESP 17; TEMP 36.8; O2SAT 97
--- NOTE | 2021-12-21 18:38 | ED.GENADUL_ITS ---
Discharge Plan Disposition Patient Disposition: HOME Condition: Stable Discharge Details Clinical Impression: Cellulitis of forearm, right Primary Care Provider: Irma Gates ED Provider: Caro Friedman Home Meds and New Rx's Prescriptions: New clindamycin HCl 150 mg capsule 450 mg PO TID 5 Days Qty: 45 0RF No Action sertraline [Zoloft] 100 mg tablet 100 mg PO DAILY rizatriptan 10 mg tablet 10 mg PO .PRN MIGRAINES PRN (Reason: migraine headache) Qty: 14 3RF Rx Instructions: Take one tab at onset of migraine. May repeat after 2 hours if needed. No more than 2 tabs in 24 hours. Aimovig Autoinjector 70 mg/mL auto-injector 70 mg subcut QMONTH Qty: 1 11RF (DME) syringe (disposable) [BD Luer-Kayla Syringe] 5 mL syringe See Rx Instructions .ROUTE .MEDSUPPLY Qty: 100 0RF Rx Instructions: use with needle for testosterone inject [id number] #2/mo. (DME) blunt needle, disposable 18 x 1 1/2 needle See Rx Instructions .ROUTE .MEDSUPPLY Qty: 100 0RF Rx Instructions: Use one needle to draw up testosterone q 2 weeks. #2/month testosterone cypionate 200 mg/mL oil 200 mg IM Q2W Qty: 5 0RF (DME) BD Regular Bevel Hague 18 gauge x 1 1/2 needle See Rx Instructions .ROUTE .COMPLEX Qty: 2 4RF Dose Instruction: USE 1 NEEDLE TO DRAW UP TESTOSTERONE EVERY 2 WEEKS Rx Instructions: USE 1 NEEDLE TO DRAW UP TESTOSTERONE EVERY 2 WEEKS metoprolol succinate 25 mg tablet extended release 24 hr 25 mg PO DAILY risperidone [Risperdal] 0.5 mg tablet 0.5 mg PO QHS omeprazole 20 mg capsule,delayed release(DR/EC) 20 mg PO DAILY benztropine 0.5 mg tablet 0.5 mg PO DAILY Latuda 40 mg tablet 40 mg PO DAILY Rx Instructions: must administer with food (at least 350 calories) topiramate [Topamax] 25 mg tablet 25 mg PO BID levothyroxine 25 mcg tablet 25 mcg PO DAILY acetaminophen 500 mg tablet 500 mg PO Q6H PRN PRN (Reason: pain) Qty: 60 3RF ibuprofen 600 mg tablet 600 mg PO Q8H PRN PRN (Reason: pain) Qty: 60 0RF amitriptyline 100 mg tablet 100 mg PO QHS ondansetron 4 mg tablet,disintegrating 4 mg PO Q8H Qty: 14 0RF Discharge Instructions Instructions: Cellulitis (ED) Additional Instructions: Please give the antibiotics at least 2 to 3 days to kick in. Apply cool compresses up to 3 times daily. Try not to itch the area. Take the antibiotics with yogurt or probiotic as directed. The redness and swelling should improve in the next couple of days. Please return to the ER if it spreads across the markings. Please take Tylenol or Ibuprofen with food every 4-6 hours as needed for pain and swelling. Follow up with primary care provider in 3-5 days. Return to ED sooner if any worsening or concerns. Increase oral fluids. Referrals: Irma Gates [Primary Care Provider] - 3 days Medical Decision Making 51-year-old male presents to the ER chief complaint of IV site complication. He reports he noticed some itching, redness and swelling to the IV site to his right posterior forearm. Patient was seen here yesterday. He does have approximately a centimeter by 6 cm area of erythema surrounding the IV puncture site. It is slightly warm to the touch. He denies any fever, body aches or any other systemic symptoms. I did discuss home care with him including cold compresses and will place him on proximately 7 days of antibiotics for possible cellulitis. He verbalized standing. Erythema was marked here in the department by nurse staff industrial. This text was generated using [employer] dictation system, please disregard any oddities of phrase or misspellings. Medical Records Medical records reviewed: Yes I reviewed the patient's medical records. HPI General Mode of arrival: ambulatory . Date/Time Provider Initiated Documentation: 12/21/21 18:14 . Limitations to Documentation: no limitations . Information obtained by: patient, RN notes reviewed and old records reviewed . HPI Narrative: 51-year-old male presents to the ER chief complaint of IV site complication. He reports he noticed some itching, redness and swelling to the IV site to his right posterior forearm. Patient was seen here yesterday. He does have approximately a centimeter by 6 cm area of erythema surrounding the IV puncture site. It is slightly warm to the touch. He denies any fever, body aches or any other systemic symptoms. I did discuss home care with him including cold compresses and will place him on proximately 7 days of antibiotics for possible cellulitis. He verbalized standing. Erythema was marked here in the department. Related Data Home Medications Medication Instructions Recorded Confirmed levothyroxine 25 mcg tablet 25 mcg PO DAILY 01/27/19 12/21/21 acetaminophen 500 mg tablet 500 mg PO Q6H PRN PRN pain #60 tabs 10/11/19 12/21/21 ibuprofen 600 mg tablet 600 mg PO Q8H PRN PRN pain #60 tabs 10/11/19 12/21/21 amitriptyline 100 mg tablet 100 mg PO QHS 10/26/19 12/21/21 sertraline 100 mg tablet (Zoloft) 100 mg PO DAILY 10/11/20 12/21/21 syringe (disposable) 5 mL (BD #100 ea 12/10/20 12/21/21 Luer-Kayla Syringe) blunt needle, disposable 18 x 1 #100 ea 12/12/20 12/21/2102/24 erenumab-aooe 70 mg/mL 70 mg subcut QMONTH #1 mL 08/07/21 12/21/21 subcutaneous auto-injector (Aimovig Autoinjector) rizatriptan 10 mg tablet 10 mg PO .PRN MIGRAINES PRN 08/07/21 12/21/21 migraine headache #14 tabs testosterone cypionate 200 mg/mL 200 mg IM Q2W #5 mL 10/21/21 12/21/21 intramuscular oil needle (disp) 18 G 18 gauge x 1 #2 ea 12/16/21 12/21/2102/24 (BD Regular Bevel Hague) benztropine 0.5 mg tablet 0.5 mg PO DAILY 12/18/21 12/21/21 lurasidone 40 mg tablet (Latuda) 40 mg PO DAILY 12/18/21 12/21/21 metoprolol succinate 25 mg 25 mg PO DAILY 12/18/21 12/21/21 tablet,extended release 24 hr omeprazole 20 mg capsule,delayed 20 mg PO DAILY 12/18/21 12/21/21 release risperidone 0.5 mg tablet 0.5 mg PO QHS 12/18/21 12/21/21 (Risperdal) topiramate 25 mg tablet (Topamax) 25 mg PO BID 12/18/21 12/21/21 ondansetron 4 mg disintegrating 4 mg PO Q8H #14 tabs 12/20/21 12/21/21 tablet clindamycin HCl 150 mg capsule 450 mg PO TID 5 days #45 caps 12/21/21 Previous Rx's Medication Instructions Recorded acetaminophen 500 mg tablet 500 mg PO Q6H PRN PRN pain #60 tabs 10/11/19 ibuprofen 600 mg tablet 600 mg PO Q8H PRN PRN pain #60 tabs 10/11/19 syringe (disposable) 5 mL (BD #100 ea 12/10/20 Luer-Kayla Syringe) blunt needle, disposable 18 x 1 #100 ea 12/12/20 12 erenumab-aooe 70 mg/mL 70 mg subcut QMONTH #1 mL 08/07/21 subcutaneous auto-injector (Aimovig Autoinjector) rizatriptan 10 mg tablet 10 mg PO .PRN MIGRAINES PRN 08/07/21 migraine headache #14 tabs testosterone cypionate 200 mg/mL 200 mg IM Q2W #5 mL 10/21/21 intramuscular oil needle (disp) 18 G 18 gauge x 1 #2 ea 12/16/21 12 (BD Regular Bevel Hague) ondansetron 4 mg disintegrating 4 mg PO Q8H #14 tabs 12/20/21 tablet clindamycin HCl 150 mg capsule 450 mg PO TID 5 days #45 caps 12/21/21 Allergies Allergy/AdvReac Type Severity Reaction Status Date / Time Penicillins Allergy Severe Anaphylaxsis, Verified 12/21/21 17:57 RASH vancomycin Allergy Severe Skin Rash Verified 12/21/21 17:57 latex Allergy Intermediate hives with Verified 12/21/21 17:57 latex powdered gloves General Stated Complaint: Cellulitis GLO: 4 Review of Systems All systems reviewed & are unremarkable except as noted in HPI and below Integumentary/Breasts Skin/Breast: Reports as per HPI, Reports pruritus, Reports rash and Reports skin swelling PFSH All Active Problems (Updated 12/21/21 @ 18:44 by Caro Friedman NP) Nausea & vomiting (Acute) Epigastric discomfort (Acute) Ileus (Acute) Cellulitis of forearm, right (Acute) Chronic headaches (Acute) Arthritis of right acromioclavicular joint (Acute 11/05/16) Abdominal pain (Acute) Current visit - YES Colorectal polyp detected on colonoscopy (Acute) Esophagitis (Acute) Gastritis (Acute) Hypogonadism in male (Acute) Premature ejaculation (Acute) Acute stress reaction (Acute) Peripheral neuropathy (Acute) Carpal tunnel syndrome on both sides (Acute) Ulnar neuropathy of right upper extremity (Acute) Migraine headache with aura (Acute) Right carpal tunnel syndrome (Acute) Depression (Chronic) Major depression (Chronic) Suicidal ideation (Acute) Right ankle sprain (Acute) Odontalgia (Acute) Vertigo (Acute) Mild cognitive impairment (Acute) Medical History Asymptomatic microscopic hematuria Cognitive developmental delay CRI (chronic renal insufficiency) Depression Dyspepsia 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 is patent Hydrocephalus associated with congenital aqueduct stenosis Hypogonadism Hypothyroid Memory impairment Neck pain Persistent headaches Pseudoseizures Seizures pt. states last seizures was when he was a kid Sleep apnea central per report; wearing CPAP Tubular adenoma of colon Surgical History Hx of colonoscopy (~10/2021) Hx of shoulder surgery Intracranial shunt with several revisions Per pt. is patent S/P carpal tunnel release right S/P cholecystectomy Social History Smoking/Tobacco Use Status: Never Smoking risk assessment performed?: Yes Alcohol Intake: never Drug use: Never Substance use type: does not use Household members: spouse and children Number of Children: 3 current occupation: [employer] Current gender identity: male What is your relationship status?: Panel score (0-1 are the most socially isolated patients): 1 Seatbelt use: always Do you feel safe at home: Yes Do you feel safe in your relationship?: Yes Exam Extrem Right upper extremity: elbow/forearm Details: normal ROM, warmth and ecchymosis Elbow/forearm/wrist images: 1. Puncture erick 2. Surrounding erythema, slight warmth Course Vital Signs Vital signs: Vital Signs Temperature 36.8 C 12/21/21 17:54 Pulse 84 12/21/21 17:54 Respiratory Rate 17 12/21/21 17:54 Blood Pressure 141/87 H 12/21/21 17:54 Pulse Oximetry 97 12/21/21 17:54 Temperature 36.8 C 12/21/21 17:54 Temperature Source Temporal Artery Scan 12/21/21 17:54 Pulse 84 12/21/21 17:54 Respiratory Rate 17 12/21/21 17:54 Respiratory Effort Non-Labored 12/21/21 17:56 Blood Pressure 141/87 H 12/21/21 17:54 Blood Pressure Position Sitting 12/21/21 17:54 Pulse Oximetry 97 12/21/21 17:54 Oxygen Delivery Method Room Air 12/21/21 17:54 Oxygen Flow Rate 0 12/21/21 17:54 Pain Level 3 12/21/21 17:54
[2021-12-21] MEDS: Clindamycin 150 MG CAP 450 MG PO (19:16)
== END 2021-12-21 19:19 | disposition home or self-care (01) ==
PROVIDERS: Emergency Provider Registered Nurse Emergency; PCP Nurse Practitioner Family
DX: L03.113 Cellulitis of right upper limb (principal)
CPT/HCPCS: 99283

== ENCOUNTER 2022-01-10 01:08 | Outpatient (CLI) | payer MEDICARE, MEDICAID, SELFPAY ==
[2022-01-10 09:12] LABS: HCT 47.8 % (40.0-50.0); HGB 16.5 g/dL (13.5-17.5); MCH 30.2 pg (27.0-33.0); MCHC 34.5 % (32.0-36.0); MCV 88 fL (80-95); MPV 8.9 fL (8.0-11.0); Platelet Count 258 10^3/uL (130-400); RBC 5.46 10^6/uL (4.36-5.78); RDW 12.8 % (11.8-14.1); RDW-SD 41.2 fL; WBC 11.06 10^3/uL (4.4-10.8)
[2022-01-10 09:55] LABS: Hemoglobin A1C 5.6 % (<5.7)
[2022-01-10 10:13] LABS: ALT 31 U/L (16-63); AST 17 U/L (15-37); Albumin 3.8 g/dL (3.4-5.0); Alkaline Phosphatase 75 U/L (46-116); Anion Gap 8.8 mmol/L (3-11); BUN 13 mg/dL (7-18); Bilirubin, Total 0.5 mg/dL (0.2-1.0); CO2 26.2 mmol/L (21.0-32.0); CREATININE 1.3 mg/dL (0.70-1.30); Calcium 9.1 mg/dL (8.5-10.1); Chloride 99 mmol/L (98-107); Cholesterol 265 mg/dL (<200); Estimated GFR 67.34 (mL/min/1.73m2); Ferritin 220 ng/mL (26-388); Folate 10.4 ng/mL (8.6-20.0); Glucose 109 mg/dL (74-106); HDL Cholesterol 38 mg/dL (40-60); Magnesium 1.8 mg/dL (1.8-2.4); Potassium 3.7 mmol/L (3.5-5.1); Sodium 134 mmol/L (136-145); TSH 2.27 uIU/mL (0.36-3.74); Total Protein 7.9 g/dL (6.4-8.2); Triglyceride 764 mg/dL (<150); Vitamin B12 306 pg/mL (193-986)
[2022-01-10 10:38] LABS: FREE T4 0.78 ng/dL (0.76-1.46)
[2022-01-10 10:52] LABS: LDL CHOLESTEROL 103 mg/dL (<100)
[2022-01-10 19:49] LABS: T3,Free 4.9 pg/mL (2.8-5.3)
[2022-01-10 20:49] LABS: PSA, Screening 0.5 ng/mL (<=2.5)
[2022-01-13 09:54] LABS: Homocysteine 12.9 umol/L (5.0-13.9)
[2022-01-13 17:08] LABS: Copper, Serum 91 mcg/dL (73-129); Zinc, S 78 mcg/dL (60-106)
[2022-01-15 12:40] LABS: 1,25-Dihydroxyvitamin D 30 pg/mL (18-64)
[2022-01-15 16:44] LABS: Testosterone, Total 432 ng/dL (240-950)
== END 2022-01-10 01:09 | disposition home or self-care (01) ==
LOC: LBO 01:08
PROVIDERS: Nurse Practitioner Psychiatric/Mental Health; PCP Nurse Practitioner Family; Visit Provider Nurse Practitioner Gerontology
DX: N13.8 Other obstructive and reflux uropathy; N40.1 Benign prostatic hyperplasia with lower urinary tract symptoms; E29.1 Testicular hypofunction; F32.9 Major depressive disorder, single episode, unspecified
CPT/HCPCS: 36415; 80053; 80061; 82306; 82525; 83090; 83721; 84153; 84403; 84630; 85027; 82607; 82652; 82728; 82746; 83036; 83735; 84439; 84443; 84481

== ENCOUNTER → 2022-01-28 10:27 | Outpatient (BNVA) | payer MEDICARE, MEDICAID, SELFPAY | PROVIDERS: PCP Nurse Practitioner Family; Referring Provider Nurse Practitioner Family; Visit Provider Nurse Practitioner Gerontology | DX: R39.89 Other symptoms and signs involving the genitourinary system (principal); Z79.890 Hormone replacement therapy; E29.1 Testicular hypofunction | CPT/HCPCS: 99214 ==

== ENCOUNTER 2022-03-07 09:40 | Outpatient (CLI) | payer MEDICARE, MEDICAID, SELFPAY ==
--- NOTE | 2022-03-07 09:30 | DI.RAD_ITS ---
Exam(s) XR KNEE RT 3V AP,LAT,SHAUNA EXAM: XR KNEE RT 3V AP,LAT,SHAUNA CLINICAL HISTORY: R knee pain. TECHNIQUE: 2D digital imaging was performed of the right knee. Three views obtained. AP, lateral an d PA tunnel views were obtained. COMPARISON: None. FINDINGS: BONES: No acute fracture is present. No bony destructive lesion is seen. JOINTS: The knee is normally aligned. No joint effusion is seen. SOFT TISSUE: Normal. IMPRESSION: Unremarkable radiographs of the right knee. DATA REPOSITORY: RADIATION DOSE DELIVERED:
== END 2022-03-07 09:41 | disposition home or self-care (01) ==
LOC: DIORS 09:40
PROVIDERS: PCP Nurse Practitioner Family; Referring Provider Nurse Practitioner Family; Visit Provider Physician Assistant
DX: M23.91 Unspecified internal derangement of right knee (principal)
CPT/HCPCS: 73562; 99213

== ENCOUNTER 2022-03-11 20:57 | Emergency (ER) | payer MEDICARE, MEDICAID, SELFPAY ==
[2022-03-11 20:59] VITALS: BP 148/97; PULSE 106; RESP 16; TEMP 36.4
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
[2022-03-11] MEDS: Normal Saline 1,000 ML 1000 ML IV (21:32)
[2022-03-11] MEDS: Ondansetron 4 MG/2 ML VIAL IVP (21:33)
[2022-03-11 21:34] LABS: Abs Immature Grans 0.06 10^3/uL (0.0-0.06); Absolute Basophil Count 0.08 10^3/uL (0.0-0.2); Absolute Lymphocyte Count 1.36 10^3/uL (1.2-3.4); Basophils % 0.4; Eosinophils % 0.5; HCT 52.7 % (40.0-50.0); HGB 17.9 g/dL (13.5-17.5); Immature Grans % 0.3; Lymphocytes % 7.1; MCH 30.1 pg (27.0-33.0); MCV 89 fL (80-95); MPV 8.9 fL (8.0-11.0); Monocytes % 4.3; Neutrophils % 87.4; Platelet Count 281 10^3/uL (130-400); RBC 5.94 10^6/uL (4.36-5.78); RDW 12.9 % (11.8-14.1); RDW-SD 42.1 fL; WBC 19.16 10^3/uL (4.4-10.8)
[2022-03-11 21:39] LABS: Absolute Monocyte Count 0.82 10^3/uL (0.1-0.8); Absolute Neutrophil Count 16.75 10^3/uL (1.2-6.7)
[2022-03-11 21:51] LABS: Lactate 1.8 mmol/L (0.6-1.4)
[2022-03-11 22:01] LABS: ALT 29 U/L (16-63); AST 17 U/L (15-37); Albumin 4.4 g/dL (3.4-5.0); Alkaline Phosphatase 90 U/L (46-116); Anion Gap 13.1 mmol/L (3-11); BUN 10 mg/dL (7-18); Bilirubin, Total 0.5 mg/dL (0.2-1.0); CO2 22.9 mmol/L (21.0-32.0); CREATININE 1.3 mg/dL (0.70-1.30); Calcium 9.5 mg/dL (8.5-10.1); Chloride 101 mmol/L (98-107); Estimated GFR 67.34 (mL/min/1.73m2); Glucose 114 mg/dL (74-106); Lipase 55 U/L (73-393); Potassium 3.6 mmol/L (3.5-5.1); Sodium 137 mmol/L (136-145); Total Protein 8.9 g/dL (6.4-8.2)
[2022-03-11 22:02] LABS: Source Nasal/Nares
[2022-03-11] MEDS: Omnipaque 350 MG/ML 100 ML BTL IV (22:15)
--- NOTE | 2022-03-11 22:32 | DI.VRAD_ITS ---
PROCEDURE INFORMATION: Exam: CT Abdomen And Pelvis With Contrast Exam date and time: 03/11/2022 10:13 PM Age: 51 years old Clinical indication: Other: N/v/d, wbc 19; Prior surgery; Surgery date: 6+ months; Surgery type: Tool Analyst shunt, gall bladder removed TECHNIQUE: Imaging protocol: Computed tomography of the abdomen and pelvis with contrast. Radiation optimization: All CT scans at this facility use at least one of these dose optimization techniques: automated exposure control; mA and/or kV adjustment per patient size (includes targeted exams where dose is matched to clinical indication); or iterative reconstruction. Contrast material: OMNIPAQUE 350; Contrast volume: 100 ml; Contrast route: INTRAVENOUS (IV); COMPARISON: CT ABDOMEN PELVIS W 12/20/2021 10:12 PM FINDINGS: Liver: Hepatomegaly and diffuse fatty infiltrationNo mass. Gallbladder and bile ducts: Prior cholecystectomy. No ductal dilation. Pancreas: Normal. No ductal dilation. Spleen: Normal. No splenomegaly. Adrenal glands: Normal. No mass. Kidneys and ureters: Normal. No hydronephrosis. Stomach and bowel: Liquid stool/fluid in the colon with mild distention. Mildly thickened small bowel loops with fluid. No obstruction. Appendix: No evidence of appendicitis. Intraperitoneal space: Peritoneal catheter/shunt terminating in the mid abdomen adjacent to a jejunal loop. No free air. No significant fluid collection. Vasculature: Unremarkable. No abdominal aortic aneurysm. Lymph nodes: Unremarkable. No enlarged lymph nodes. Urinary bladder: Unremarkable as visualized. Reproductive: Unremarkable as visualized. Bones/joints: Unremarkable. No acute fracture. Soft tissues: Unremarkable. IMPRESSION: Non-specific bowel gas pattern which may represent enteritis/enterocolitis/diarrheal disease Ventriculoperitoneal shunt terminating in the mid abdomen as noted. No evidence for surrounding collection Dictated and Authenticated by: Sumit Rasmussen MD. Ordering:ÁNGELA Farmer MD
[2022-03-11 22:34] LABS: COVID-19 PCR Negative (Negative)
[2022-03-11 22:41] VITALS: BP 132/64; PULSE 89; RESP 18; O2SAT 96
[2022-03-11] MEDS: Ondansetron O.D.T. 4 MG TABEF, 3 TABS/BTL PO (22:46)
== END 2022-03-11 22:57 | disposition home or self-care (01) ==
PROVIDERS: Emergency Provider Physician Assistant; PCP Nurse Practitioner Family
DX: R11.2 Nausea with vomiting, unspecified (principal); R19.7 Diarrhea, unspecified; D72.829 Elevated white blood cell count, unspecified; I10 Essential (primary) hypertension; R00.0 Tachycardia, unspecified; E03.9 Hypothyroidism, unspecified; G40.909 Epilepsy, unspecified, not intractable, without status epilepticus; Z20.822 Contact with and (suspected) exposure to COVID-19; Z90.49 Acquired absence of other specified parts of digestive tract
CPT/HCPCS: 80053; 83690; 87635; 96361; 96374; 99285; 74177; 81003; 83605; 85025; 99284; J2405; J3490

== ENCOUNTER → 2022-04-22 09:02 | Outpatient (BNVA) | payer MEDICARE, MEDICAID, SELFPAY | PROVIDERS: PCP Nurse Practitioner Family; Referring Provider Nurse Practitioner Family; Visit Provider Surgery | DX: Z12.11 Encounter for screening for malignant neoplasm of colon (principal); D12.6 Benign neoplasm of colon, unspecified | CPT/HCPCS: 99212 ==

== ENCOUNTER 2022-05-06 10:44 | Day surgery (SDC) | payer MEDICARE, MEDICAID, SELFPAY ==
[2022-05-06 11:16] VITALS: BP 129/104; PULSE 119; RESP 20; TEMP 36.5; O2SAT 97
[2022-05-06] MEDS: Lactated Ringers 1,000 ML 80 ML IV (11:50)
--- NOTE | 2022-05-06 12:27 | W.COLOREPORT ---
Date of service: 05/06/22 Time of Service: 12:27 Colonoscopy Report Procedure Description: Procedures performed: 1. Colonoscopy with snare polypectomy 2. Endoscopic fulguration/ablation/destruction of colon polyp Preoperative diagnosis: Surveillance colonoscopy Postoperative diagnosis: Colon polyps Surgeon: Bety Eastman Anesthesia: Sarah Indication for procedure: Patient is a 51 yo man with a history of multiple prior colonoscopies. Multiple adenomatous polyps have been removed during most colonoscopies. The last one was last year and his prep was reportedly quite poor. There is no family history of colon cancer. Findings: The terminal ileum was normal. Multiple(~5-6) colon polyps were found and removed. They were all approximately 3-5 mm in size. They were all very flat/sessile. They were all removed with hot snare technique. Separately, I used the tip of the hot snare to ablate/destroy a couple of other small 2-3 mm polyps. The prep was excellent this time around. The colon forms an alpha loop somewhere in the left colon. Surveillance/follow-up recommendations: Considering the history and how many polyps have been removed I recommend repeating another colonoscopy in 3 years. Complications: None Blood loss: Minimal Specimens:?? YES Quality of Prep:?? Good Procedure in detail: Written consent was obtained from the patient who was in agreement with the risks, benefits and indications of the procedure.? We went to the endoscopy suite and laid the patient in left lateral decubitus position.? Anesthesia was administered which was tolerated well.? A timeout was performed and when we are all in agreement we began the procedure. Digital rectal exam and visual examination was performed and within normal limits.? A well?lubricated colonoscope was advanced without difficulty all the way to the cecum identified by the ileocecal valve, and triangular folds and appendiceal orifice.? The terminal ileum was briefly intubated and appeared normal. The scope was then slowly withdrawn.?? Retroflexion was performed in the rectum.? The findings/interventions are noted above. The scope was then removed and the patient tolerated the procedure well and was then taken back to the PACU in hemodynamically stable condition.
--- NOTE | 2022-05-06 12:53 | ANES.PREOP_ITS ---
General Info Date of Service Date Performed: 05/06/22 Height: 5 ft 6 in Weight: 87.6 kg Body Mass Index (BMI): 31.1 Surgical Procedure: Operation Date: 05/06/22 13:35 Proposed Procedure Side Surgeon kajal Eastman MD Meds Allergies and Home Medications Allergies Allergy/AdvReac Type Severity Reaction Status Date / Time Penicillins Allergy Severe Anaphylaxsis, Verified 05/06/22 11:26 RASH vancomycin Allergy Severe Skin Rash Verified 05/06/22 11:26 latex Allergy Intermediate hives with Verified 05/06/22 11:26 latex powdered gloves Home Medication Medication Instructions Recorded levothyroxine 25 mcg tablet 25 mcg PO DAILY 01/27/19 acetaminophen 500 mg tablet 500 mg PO Q6H PRN PRN pain #60 tabs 10/11/19 ibuprofen 600 mg tablet 600 mg PO Q8H PRN PRN pain #60 tabs 10/11/19 amitriptyline 100 mg tablet 25 mg PO QHS 10/26/19 sertraline 100 mg tablet (Zoloft) 100 mg PO DAILY 10/11/20 blunt needle, disposable 18 x 1 #100 ea 12/12/20 1/2 erenumab-aooe 70 mg/mL 70 mg subcut QMONTH #1 mL 08/07/21 subcutaneous auto-injector (Aimovig Autoinjector) rizatriptan 10 mg tablet 10 mg PO .PRN MIGRAINES PRN 08/07/21 migraine headache #14 tabs benztropine 0.5 mg tablet 0.5 mg PO DAILY 12/18/21 lurasidone 40 mg tablet (Latuda) 40 mg PO DAILY 12/18/21 metoprolol succinate 25 mg 25 mg PO DAILY 12/18/21 tablet,extended release 24 hr omeprazole 20 mg capsule,delayed 20 mg PO DAILY 12/18/21 release topiramate 25 mg tablet (Topamax) 25 mg PO BID 12/18/21 ondansetron 4 mg disintegrating 4 mg PO Q8H #14 tabs 12/20/21 tablet meloxicam 15 mg tablet 15 mg PO DAILY #30 tabs 03/14/22 syringe (disposable) 5 mL (BD #100 ea 04/16/22 Luer-Kayla Syringe) safety needles 25 gauge x 1 1/2 #6 ea 04/17/22 (BD Eclipse Luer-Kayla) bisacodyl 5 mg tablet,delayed 5 mg PO ONCE #4 tabs 04/22/22 release (Dulcolax (bisacodyl)) polyethylene glycol 3350 17 17 g PO ONCE #238 grams 04/22/22 gram/dose oral powder aripiprazole 2 mg tablet 2 mg PO DAILY 05/05/22 testosterone cypionate 200 mg/mL 200 mg IM Q2W #10 mL 05/05/22 intramuscular oil Current Visit Medications: Current Medications Generic Name Dose Route Start Last Admin Trade Name Freq PRN Reason Stop Dose Admin Ringer's Solution 1,000 mls @ 80 mls/hr 05/06/22 06:00 05/06/22 11:50 IV 06/04/22 23:59 80 mls/hr INFUSION DAMIEN Administration IV Miscellaneous Supplies 1 each 05/06/22 06:00 Iv Access IV 06/04/22 23:59 DIRECTED DAMIEN Sodium Chloride 0 ml 05/06/22 06:00 Normal Saline Flush 10 Ml Syr IV 06/04/22 23:59 PRN PRN Sodium Chloride 0 ml 05/06/22 06:00 Normal Saline 10 Ml Vial IJ 06/04/22 23:59 DIRECTED PRN Sterile Water 0 ml 05/06/22 06:00 Water,Injection,Sterile 10 Ml Vial IJ 06/04/22 23:59 DIRECTED PRN PFSH Active Problems Active Problems: Problem Status Onset Code Internal derangement of right knee M23.91 Chronic headaches Lateral epicondylitis of right elbow M77.11 Arthritis of right acromioclavicular joint 11/05/16 M19.011 Biceps tendinitis of right shoulder 11/05/16 M75.21 Right rotator cuff tendinitis 10/01/16 M75.81 Abdominal pain R10.9 Colorectal polyp detected on colonoscopy K63.5 Esophagitis K20.9 Gastritis K29.70 Hypogonadism in male E29.1 Premature ejaculation F52.4 Acute stress reaction F43.0 Peripheral neuropathy G62.9 Carpal tunnel syndrome on both sides G56.03 Ulnar neuropathy of right upper extremity G56.21 Migraine headache with aura G43.109 Right carpal tunnel syndrome G56.01 Depression F32.9 Major depression F32.9 Suicidal ideation R45.851 Right ankle sprain S93.401A Odontalgia K08.89 Vertigo R42 Mild cognitive impairment G31.84 Medical History Medical History Asymptomatic microscopic hematuria Cognitive developmental delay CRI (chronic renal insufficiency) Depression Dyspepsia 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 is patent Hydrocephalus associated with congenital aqueduct stenosis Hypogonadism Hypothyroid Memory impairment Neck pain Persistent headaches Pseudoseizures Seizures pt. states last seizures was when he was a kid Sleep apnea central per report; wearing CPAP Tubular adenoma of colon Surgical History Surgical History Hx of colonoscopy (~10/2021) Hx of shoulder surgery Intracranial shunt with several revisions Per pt. is patent S/P carpal tunnel release right S/P cholecystectomy Tobacco Smoking/Tobacco Use Status: Never Alcohol Alcohol Intake: never Substance Use Substance use: Never Substance use type: does not use Vital Signs and Lab Results Vital Signs Most Recent Vital Signs in EMR: Most Recent Vital Signs Temp Pulse Resp BP Pulse Ox 36.5 C 119 H 20 129/104 H 97 05/06/22 11:16 05/06/22 11:16 05/06/22 11:16 05/06/22 11:16 05/06/22 11:16 Lab Results Blood Type / Crossmatch: No Data to Display Complete Blood Count: No Data to Display Complete Metabolic Panel: No Data to Display Liver Function Panel: No Data to Display Coagulation Panel: No Data to Display Cardiac Panel: No Data to Display Arterial Blood Gas: No Data to Display Venous Blood Gas: No Data to Display Pancreas Panel: No Data to Display Thyroid Panel: No Data to Display Infectious Disease: No Data to Display Blood Cultures: No Data to Display Toxicology Panel: No Data to Display Imaging and Studies Imaging and Studies Study information below may be from another EMR and interpreted by another provider. Please see original notes in EMR for more complete details. Echocardiogram Summary: 04/2012: FINDINGS: LEFT VENTRICLE: Normal size and systolic function. Normal regional wall motion. ESTIMATED LVEF: 68% RIGHT VENTRICLE: Normal size and function. ATRIA: Normal biatrial size. AORTIC VALVE: Trileaflet, opens well without regurgitation. MITRAL VALVE: Anatomically normal without regurgitation. TRICUSPID VALVE: Opens well with trace regurgitation. PULMONIC VALVE: Normal. GREAT VESSELS: Normal. RSV/PA PRESSURE: 33 mmHg. PERICARDIUM: No effusion. Anesthesia Assessment and Plan Anesthesia History Personal History: No History of Anesthesia Complications Family History: No Family History of Anesthesia Complications Exercise Tolerance Exercise Tolerance: Metabolic Equivalents>4 Pertinent Negatives Pertinent Negatives: No Symptoms of GERD, No Major Cardiovascular Symptoms or Complaints and No Major Pulmonary Symptoms or Complaints Cardiac & Pulmonary Exam Cardiac Exam: Normal S1/S2 Heart Sounds Pulmonary Exam: Clear Bilateral Breath Sounds Implantable Cardiac Device Does patient have a Pacemaker or an ICD?: No Airway Exam Known Difficult Airway: No Mallampati Class: 1 Mouth Opening: Normal (> 3cm) Thyromental Distance: Greater than 3 cm Neck Range of Motion: Full ROM Neck Circumference: Normal Teeth Condition: Edentulous ASA Classification ASA Score: ASA 2 Emergency Case?: No NPO Status NPO Status: NPO Clears >2 hours, Solids >8 hours Anesthesia Plan Resuscitation Status: Full Code Anesthesia Technique: General Anesthesia Airway Planned: Natural Airway Monitors Used: Standard Monitors
[2022-05-06 13:19] VITALS: BMI 31.1
--- NOTE | 2022-05-06 13:49 | BOWEL_PTH ---
PATIENT: Chapin Costa LOC: [facility] U#:[id number] AGE/SX: 51/M ROOM: RE05/06/[address]: Delgado Eastman : 1970 BED: DIS: 05/06/2022 SPEC #: [id number] RECD: 05/06/22 16:42 STATUS: JOHN RE #: [id number] COLLIN: 05/06/22 13:[address]: Delgado Eastman DEPT: Surgical Specimen RECD BY: Lupe Pierce ENTERED: 05/06/22 16:44 SP TYPE: Bowel OTHR DR: Irma Gates Tissues: 1 - BIOPSY BOWEL 2 - BIOPSY BOWEL 3 - BIOPSY BOWEL 4 - BIOPSY BOWEL 5 - STOMACH BIOPSY Procedures: GROSS AND MICRO LEVEL 4 Comments: [id number]
[2022-05-06 14:14] VITALS: BP 127/92; PULSE 89; RESP 16; TEMP 36.4; O2SAT 93
--- NOTE | 2022-05-06 14:38 | W.ANESPOSTOP ---
Postoperative Evaluation Date, Time and Location Date Performed: 05/06/22 Time Performed: 14:38 Patient Location: Day Surgery Unit Vital Signs Most Recent Imported Vital Signs: Most Recent Vital Signs Temp Pulse Resp BP Pulse Ox 36.4 C L 89 16 127/92 H 93 05/06/22 14:14 05/06/22 14:14 05/06/22 14:14 05/06/22 14:14 05/06/22 14:14 Pain Score Most Recent Pain Score: Most Recent Pain Score Pain Level 0 05/06/22 14:14 Assessment Mental Status: Awake (Alert & Oriented to Patient Baseline) Airway and Respiratory Function: Patent airway with normal (patient baseline) respiratory exam Cardiovascular Function: Hemodynamically Stable Hydration Status: Adequately Hydrated Nausea & Vomiting: No Nausea or Vomiting Pain: Pt. Denies Any Pain Peripheral Nerve Block: Patient did not receive a nerve block
[2022-05-06 14:46] VITALS: BP 118/78; PULSE 80; RESP 18; TEMP 36.7; O2SAT 93
== END 2022-05-06 15:50 | disposition home or self-care (01) ==
PROVIDERS: PCP Nurse Practitioner Family; Visit Provider Student in an Organized Health Care Education/Training Program
PROC: 0DJD8ZZ Inspection of Lower Intestinal Tract, Via Natural or Artificial Opening Endoscopic (ICD-10-PCS; CPT 45378; principal; 2022-05-06 13:30)
DX: Z09 Encounter for follow-up examination after completed treatment for conditions other than malignant neoplasm (principal); K63.5 Polyp of colon; Z86.010 Personal history of colon polyps
CPT/HCPCS: 45385; 45384; 88305

== ENCOUNTER 2022-05-15 17:16 | Outpatient (REF) | payer MEDICARE, MEDICAID, SELFPAY ==
[2022-05-17 01:53] LABS: COVID-19 RT-PCR UVMMC Result Negative (Negative)
== END 2022-05-15 17:17 | disposition home or self-care (01) ==
LOC: LBN 17:16
PROVIDERS: PCP Nurse Practitioner Family; Visit Provider Physician Assistant Medical
DX: Z13.9 Encounter for screening, unspecified (principal)
CPT/HCPCS: U0003; 87070

== ENCOUNTER 2022-05-23 15:01 | Outpatient (REF) | payer MEDICARE, MEDICAID, SELFPAY ==
[2022-05-23 15:29] LABS: Abs Immature Grans 0.04 10^3/uL (0.0-0.06); Absolute Eosinophil Count 0.13 10^3/uL (0.0-0.7); Absolute Lymphocyte Count 3.86 10^3/uL (1.2-3.4); Absolute Monocyte Count 1.06 10^3/uL (0.1-0.8); Basophils % 0.6; Eosinophils % 0.9; HGB 17.8 g/dL (13.5-17.5); Immature Grans % 0.3; Lymphocytes % 27.4; MCH 29.6 pg (27.0-33.0); MCHC 33.6 % (32.0-36.0); MCV 88 fL (80-95); MPV 9.8 fL (8.0-11.0); Monocytes % 7.5; Neutrophils % 63.3; Platelet Count 320 10^3/uL (130-400); RBC 6.01 10^6/uL (4.36-5.78); RDW 12.7 % (11.8-14.1); RDW-SD 41.6 fL; WBC 14.07 10^3/uL (4.4-10.8)
[2022-05-23 15:51] LABS: ALT 32 U/L (16-63); AST 16 U/L (15-37); Albumin 4.4 g/dL (3.4-5.0); Alkaline Phosphatase 103 U/L (46-116); BUN 13 mg/dL (7-18); Bilirubin, Total 0.4 mg/dL (0.2-1.0); CREATININE 1.2 mg/dL (0.70-1.30); Calcium 9.9 mg/dL (8.5-10.1); Chloride 100 mmol/L (98-107); Estimated GFR 74.13 (mL/min/1.73m2); Glucose 74 mg/dL (74-106); Potassium 4.2 mmol/L (3.5-5.1); Sodium 141 mmol/L (136-145); Total Protein 8.5 g/dL (6.4-8.2)
[2022-05-23 15:57] LABS: Absolute Basophil Count 0.08 10^3/uL (0.0-0.2); Absolute Neutrophil Count 8.91 10^3/uL (1.2-6.7)
== END 2022-05-23 15:02 | disposition home or self-care (01) ==
LOC: LBN 15:01
PROVIDERS: PCP Nurse Practitioner Family; Visit Provider Nurse Practitioner Family
DX: N43.1 Infected hydrocele (principal)
CPT/HCPCS: 80053; 85025

== ENCOUNTER → 2022-06-04 08:45 | Outpatient (BNVA) | payer MEDICARE, MEDICAID, SELFPAY | PROVIDERS: PCP Nurse Practitioner Family; Visit Provider Nurse Practitioner Adult Health | DX: G43.909 Migraine, unspecified, not intractable, without status migrainosus (principal); F39 Unspecified mood [affective] disorder; G47.00 Insomnia, unspecified; G47.30 Sleep apnea, unspecified | CPT/HCPCS: 99213; 99214 ==

== ENCOUNTER 2022-07-24 04:53 | Outpatient (CLI) | payer MEDICARE, MEDICAID, SELFPAY ==
[2022-07-28 15:46] LABS: Testosterone, Total 216 ng/dL (240-950)
[2022-08-01 09:07] LABS: PSA, Screening 0.3 ng/mL (<=2.5)
== END 2022-07-24 04:54 | disposition home or self-care (01) ==
LOC: LBO 04:55
PROVIDERS: PCP Nurse Practitioner Family; Visit Provider Nurse Practitioner Gerontology
DX: E29.1 Testicular hypofunction (principal); N40.1 Benign prostatic hyperplasia with lower urinary tract symptoms; Z12.5 Encounter for screening for malignant neoplasm of prostate
CPT/HCPCS: 36415; 84153; 84403

== ENCOUNTER → 2022-07-29 09:58 | Outpatient (BNVA) | payer MEDICARE, MEDICAID, SELFPAY | PROVIDERS: PCP Physician Assistant; Referring Provider Physician Assistant; Visit Provider Nurse Practitioner Gerontology | DX: E29.1 Testicular hypofunction (principal); R39.89 Other symptoms and signs involving the genitourinary system | CPT/HCPCS: 99213 ==

== ENCOUNTER 2022-07-30 16:45 | Outpatient (CLI) | payer MEDICARE, MEDICAID, SELFPAY ==
--- NOTE | 2022-07-30 | DI.RAD_ITS ---
Exam(s) XR SHOULDER RT COMPLETE 2+V EXAM: XR SHOULDER RT COMPLETE 2+V CLINICAL HISTORY: PAIN RT SHOULDER M25.511 W/ RADICULOPATHY ? DEGREE BONY ABNORMALITY. TECHNIQUE: 2D digital imaging was performed of the right shoulder. Five images were obtained. AP, Grashey, Y-view and axillary views were obtained. COMPARISON: CR RIGHT SHOULDER COMPLETE from 07/13/2016 FINDINGS: BONES: No acute fracture is present. No bony destructive lesion is seen. JOINTS: There is a right AC joint separation of approximately 1.8 cm. There is a well corticated oss eous density between the acromioclavicular joint which appears old. SOFT TISSUE: Normal. SILK FOLDER shunt tubing is seen overlying the right chest wall. IMPRESSION: Right AC joint separation of 1.8 cm. DATA REPOSITORY: RADIATION DOSE DELIVERED:
--- NOTE | 2022-07-30 17:19 | DI.VRAD_ITS ---
PROCEDURE INFORMATION: Exam: XR Right Shoulder Exam date and time: 07/30/2022 4:54 PM Age: 51 years old Clinical indication: Other: Right shoulder pain.No history of trauma or recent surgery is provided. TECHNIQUE: Imaging protocol: Radiologic exam of the right shoulder. 5image(s) are provided. Views: 2 or more views. COMPARISON: CR RIGHT SHOULDER COMPLETE 09/11/2016 2:57 PM FINDINGS: Tubes, catheters and devices: There is some DIVISION OPERATIONS SPECIALIST shunt catheter appearance suggested with some thickening along the inferior course. Bones/joints: No interval displaced fracture or dislocation is appreciated. There is some chronic degeneration of the superolateral aspect of the humeral head. There is some marginal spurring of the inferior glenohumeral junction. In the interval there is separation of the acromioclavicular junction with intercortical distance of approximately 1.8 cm. The coracoclavicular distance is approximately 1.1 cm. There is some chronic well corticated calcific appearance about the acromioclavicular junction level. Pleural space: No pneumothorax or lobar type consolidation is appreciated. Soft tissues: No radiopaque foreign body or subcutaneous emphysema is appreciated. Other findings: No other significant interval changes are appreciated. IMPRESSION: 1. In the interval there is AC separation of approximately 1.8 cm. 2. No interval fracture is appreciated. 3. There are chronic degenerative changes of the glenohumeral junction and superolateral aspect of the humeral head with subacromial narrowing suggestive of chronic rotator cuff disease. Dictated and Authenticated by: Phil Vasquez MD. Ordering:[facility]I Blanchard MD
== END 2022-07-30 17:05 ==
PROVIDERS: PCP Physician Assistant; Visit Provider Physician Assistant Medical
DX: S43.121A Dislocation of right acromioclavicular joint, 100%-200% displacement, initial encounter (principal); X58.XXXA Exposure to other specified factors, initial encounter
CPT/HCPCS: 73030

== ENCOUNTER → 2022-08-21 08:48 | Outpatient (BNVA) | payer MEDICARE, MEDICAID, SELFPAY | PROVIDERS: PCP Physician Assistant; Referring Provider Physician Assistant | DX: M75.81 Other shoulder lesions, right shoulder (principal) | CPT/HCPCS: 20610; J1040 ==

== ENCOUNTER 2022-08-21 11:18 | Outpatient (CLI) | payer MEDICARE, MEDICAID, SELFPAY ==
[2022-08-21 09:58] LABS: WBC 11.23 10^3/uL (4.4-10.8)
[2022-08-21 10:00] LABS: ESR 27 mm/hr (0-15)
== END 2022-08-21 11:19 | disposition home or self-care (01) ==
LOC: LBO 11:19
PROVIDERS: PCP Physician Assistant; Visit Provider Nurse Practitioner
DX: Q03.9 Congenital hydrocephalus, unspecified (principal)
CPT/HCPCS: 20610; 36415; 85048; 85652; J1040

== ENCOUNTER 2022-09-03 09:52 | Outpatient (CLI) | payer MEDICARE, MEDICAID, SELFPAY ==
[2022-09-03 11:44] LABS: ALT 30 U/L (16-63); AST 16 U/L (15-37); Albumin 3.9 g/dL (3.4-5.0); Alkaline Phosphatase 95 U/L (46-116); BUN 14 mg/dL (7-18); Bilirubin, Total 0.6 mg/dL (0.2-1.0); CREATININE 1.3 mg/dL (0.70-1.30); Calcium 9.1 mg/dL (8.5-10.1); Chloride 102 mmol/L (98-107); Cholesterol 232 mg/dL (<200); Estimated GFR 67.34 (mL/min/1.73m2); Glucose 98 mg/dL (74-106); HDL Cholesterol 44 mg/dL (40-60); Potassium 3.9 mmol/L (3.5-5.1); Sodium 139 mmol/L (136-145); TSH 2.72 uIU/mL (0.36-3.74); Total Protein 7.8 g/dL (6.4-8.2); Triglyceride 549 mg/dL (<150)
[2022-09-03 12:46] LABS: LDL CHOLESTEROL 107 mg/dL (<100)
== END 2022-09-03 09:53 | disposition home or self-care (01) ==
LOC: LBO 09:53
PROVIDERS: PCP Physician Assistant; Visit Provider Physician Assistant
DX: E78.5 Hyperlipidemia, unspecified (principal); E03.9 Hypothyroidism, unspecified; I10 Essential (primary) hypertension
CPT/HCPCS: 36415; 80053; 80061; 83721; 84443

== ENCOUNTER 2022-09-10 16:45 | Outpatient (REF) | payer MEDICARE, MEDICAID, SELFPAY ==
[2022-09-10 17:36] LABS: Abs Immature Grans 0.02 10^3/uL (0.0-0.06); Absolute Basophil Count 0.07 10^3/uL (0.0-0.2); Absolute Eosinophil Count 0.13 10^3/uL (0.0-0.7); Absolute Lymphocyte Count 2.43 10^3/uL (1.2-3.4); Absolute Monocyte Count 0.47 10^3/uL (0.1-0.8); Absolute Neutrophil Count 5.74 10^3/uL (1.2-6.7); Basophils % 0.8; Eosinophils % 1.5; HCT 48.9 % (40.0-50.0); HGB 16.6 g/dL (13.5-17.5); Immature Grans % 0.2; Lymphocytes % 27.4; MCH 29.5 pg (27.0-33.0); MCHC 33.9 % (32.0-36.0); MCV 87 fL (80-95); MPV 9.5 fL (8.0-11.0); Monocytes % 5.3; Neutrophils % 64.8; Platelet Count 230 10^3/uL (130-400); RBC 5.63 10^6/uL (4.36-5.78); RDW 13.2 % (11.8-14.1); RDW-SD 41.4 fL; WBC 8.86 10^3/uL (4.4-10.8)
== END 2022-09-10 16:46 | disposition home or self-care (01) ==
LOC: NCHCN 16:45
PROVIDERS: PCP Physician Assistant; Visit Provider Physician Assistant
DX: D72.829 Elevated white blood cell count, unspecified (principal)
CPT/HCPCS: 85025

== ENCOUNTER 2022-09-12 01:01 | Outpatient (CLI) | payer MEDICARE, MEDICAID, SELFPAY ==
--- NOTE | 2022-09-12 10:16 | DI.RAD_ITS ---
Exam(s) XR SHUNT SERIES EXAM: XR SHUNT SERIES CLINICAL HISTORY: H/O CERAMICS TEACHER SHUNT, Z98.2, PERSISTENT HEADACHES,R51.9. TECHNIQUE: 2D digital imaging was performed. COMPARISON: CR XR SHUNT SERIES from 03/13/2020 Findings: SKULL: Hobson holes. LUNGS: Clear. No pleural abnormality seen. HEART: Normal. MEDIASTINUM: Normal. BOWEL GAS PATTERN: Nondistended bowel loops. No air-fluid levels seen. ABNORMAL COLLECTIONS OF AIR: No abnormal collection of air. No pneumoperitoneum. CALCIFICATIONS: None. No radiopaque renal, ureteral, or bladder calcification. Surgical clips right upper quadrant. SHUNT CATHETER: Visualized portions of shunt catheter from the level of the skull to the level of the abdomen is continuous without evidence of kink or break. There has been no change in the appearance from the prior exam. IMPRESSION: 1. No change in appearance of ventriculoperitoneal shunt. 2. No acute abdominal or pulmonary findings. DATA REPOSITORY: RADIATION DOSE DELIVERED:
== END 2022-09-12 01:21 ==
LOC: DI 01:02
PROVIDERS: PCP Physician Assistant; Visit Provider Physician Assistant Surgical
DX: Z98.2 Presence of cerebrospinal fluid drainage device (principal); R51.9 Headache, unspecified
CPT/HCPCS: 70360; 71045; 72050; 74018

== ENCOUNTER → 2022-09-17 14:12 | Outpatient (BNVA) | payer MEDICARE, MEDICAID, SELFPAY | PROVIDERS: PCP Physician Assistant; Referring Provider Physician Assistant; Visit Provider Nurse Practitioner Adult Health | DX: R51.9 Headache, unspecified (principal); Z98.2 Presence of cerebrospinal fluid drainage device | CPT/HCPCS: 99213; J1885; J2550; 96372 ==

== ENCOUNTER → 2022-10-30 08:54 | Outpatient (BNVA) | payer MEDICARE, MEDICAID, SELFPAY | PROVIDERS: PCP Physician Assistant; Referring Provider Physician Assistant; Visit Provider Student in an Organized Health Care Education/Training Program | DX: M19.011 Primary osteoarthritis, right shoulder (principal); M75.21 Bicipital tendinitis, right shoulder; M75.81 Other shoulder lesions, right shoulder | CPT/HCPCS: 99213 ==

== ENCOUNTER → 2022-12-03 10:52 | Outpatient (BNVA) | payer MEDICARE, MEDICAID, SELFPAY | PROVIDERS: PCP Physician Assistant; Visit Provider Nurse Practitioner Adult Health | DX: G43.109 Migraine with aura, not intractable, without status migrainosus (principal); F39 Unspecified mood [affective] disorder; G47.00 Insomnia, unspecified | CPT/HCPCS: 99213 ==

== ENCOUNTER 2022-12-04 13:16 | Emergency (ER) | payer MEDICARE, MEDICAID, SELFPAY ==
--- NOTE | 2022-12-04 | DI.RAD_ITS ---
Exam(s) XR SHUNT SERIES EXAM: XR SHUNT SERIES CLINICAL HISTORY: headache. TECHNIQUE: 2D digital imaging was performed. COMPARISON: CR XR SHUNT SERIES from 09/12/2022 Findings: SKULL: Saud holes and shunt tubing noted. Unchanged in position. No destructive osseous lesion seen . LUNGS: Clear. No pleural abnormality seen. HEART: Normal. MEDIASTINUM: Normal. BOWEL GAS PATTERN: Nondistended bowel loops. No air-fluid levels seen. ABNORMAL COLLECTIONS OF AIR: No abnormal collection of air. No pneumoperitoneum. CALCIFICATIONS: None. No radiopaque renal, ureteral, or bladder calcification. SHUNT CATHETER: Visualized portions of shunt catheter from the level of the skull to the level of the abdomen is continuous without evidence of kink or break. OTHER FINDINGS: Bones unremarkable. IMPRESSION: 1. Ventricular peritoneal shunt appears unchanged in position. No evidence of break or kink. 2. No acute pulmonary or abdominal findings. DATA REPOSITORY: RADIATION DOSE DELIVERED:
[2022-12-04 13:21] VITALS: BP 125/99; PULSE 82; RESP 18; TEMP 36.5; O2SAT 95
[2022-12-04 15:45] VITALS: BP 136/97; PULSE 71; RESP 16; O2SAT 95
--- NOTE | 2022-12-04 15:45 | DI.CT_ITS ---
Exam(s) CT HEAD WO EXAM: CT HEAD WO CLINICAL HISTORY: headache, shunt. TECHNIQUE: Imaging Protocol: Axial computed tomography images with coronal and sagittal reformatted images were created and reviewed COMPARISON: CT CT HEAD WO from 05/21/2021 CR XR SHUNT SERIES from 09/12/2022 CR XR SHUNT SERIES from 12/04/2022 FINDINGS: Ventricles and Extra axial spaces: Unchanged in size and morphology.. Ventricular shunt unchanged in position. Tip projects in region of 3rd ventricle. Ventricles are decompressed. Hemorrhage: None. Cerebral parenchyma: No evidence of acute infarct or mass. Midline shift: None. Brainstem/Cerebellum: Normal. Calvarium: Multiple gala holes again noted. Visualized Paranasal sinuses/Mastoids: Clear. Soft Tissues: Unremarkable. IMPRESSION: No acute intracranial process. Ventricular peritoneal shunt unchanged in position. Ventricles unchanged in size. RADIATION DOSE DELIVERED: Total DLP DATA REPOSITORY: All CT scans at this facility are submitted to the National Radiology Data Registry (NRDR) Dose Index Registry (DIR) with the [employer] (A[employer]). RADIATION OPTIMIZATION: All CT scans at this facility use at least one of these dose optimization te chniques: automated exposure control; mA and/or kV adjustment per patient size (includes targeted exa ms where dose is matched to clinical indication); or iterative reconstruction.
[2022-12-04 16:57] LABS: Abs Immature Grans 0.03 10^3/uL (0.0-0.06); Absolute Basophil Count 0.07 10^3/uL (0.0-0.2); Absolute Lymphocyte Count 2.93 10^3/uL (1.2-3.4); Absolute Monocyte Count 0.57 10^3/uL (0.1-0.8); Absolute Neutrophil Count 6.28 10^3/uL (1.2-6.7); Basophils % 0.7; HCT 48.9 % (40.0-50.0); HGB 16.6 g/dL (13.5-17.5); Immature Grans % 0.3; Lymphocytes % 29.4; MCH 29.3 pg (27.0-33.0); MCHC 33.9 % (32.0-36.0); MCV 86 fL (80-95); MPV 8.6 fL (8.0-11.0); Monocytes % 5.7; Neutrophils % 62.9; Platelet Count 223 10^3/uL (130-400); RBC 5.67 10^6/uL (4.36-5.78); RDW 13.1 % (11.8-14.1); RDW-SD 41.1 fL; WBC 9.98 10^3/uL (4.4-10.8)
[2022-12-04 17:13] VITALS: RESP 16
[2022-12-04 17:20] LABS: ALT 34 U/L (16-63); AST 17 U/L (15-37); Albumin 4.3 g/dL (3.4-5.0); Alkaline Phosphatase 91 U/L (46-116); Anion Gap 9.4 mmol/L (3-11); BUN 13 mg/dL (7-18); Bilirubin, Total 0.6 mg/dL (0.2-1.0); C-Reactive Protein 0.54 mg/dL (0.0-0.3); CO2 27.6 mmol/L (21.0-32.0); CREATININE 1.3 mg/dL (0.70-1.30); Calcium 9.8 mg/dL (8.5-10.1); Chloride 102 mmol/L (98-107); Estimated GFR 66.93 (mL/min/1.73m2); Glucose 103 mg/dL (74-106); Sodium 139 mmol/L (136-145); Total Protein 8.5 g/dL (6.4-8.2)
--- NOTE | 2022-12-04 18:19 | W.ED.GENAD ---
Discharge Plan Disposition Patient Disposition: Home Condition: Stable Discharge Details Clinical Impression: Chronic headaches Primary Care Provider: Peter Lebron ED Provider: Erika Lucio Home Meds and New Rx's Prescriptions: Continued atorvastatin 10 mg tablet 10 mg PO DAILY cyanocobalamin (vitamin B-12) 500 mcg tablet, sublingual 500 mcg sublingual DAILY cholecalciferol (vitamin D3) 50 mcg (2,000 unit) capsule 50 mcg PO DAILY bisacodyl [Dulcolax (bisacodyl)] 5 mg tablet,delayed release (DR/EC) 5 mg PO ONCE Qty: 4 0RF Rx Instructions: Take according to provider's instructions for colonoscopy prep. sertraline [Zoloft] 100 mg tablet 100 mg PO DAILY rizatriptan 10 mg tablet 10 mg PO .PRN MIGRAINES PRN (Reason: migraine headache) Qty: 14 3RF Rx Instructions: Take one tab at onset of migraine. May repeat after 2 hours if needed. No more than 2 tabs in 24 hours. (DME) blunt needle, disposable 18 x 1 1/2 needle See Rx Instructions .ROUTE .MEDSUPPLY Qty: 100 0RF Rx Instructions: Use one needle to draw up testosterone q 2 weeks. #2/month metoprolol succinate 25 mg tablet extended release 24 hr 25 mg PO DAILY omeprazole 20 mg capsule,delayed release(DR/EC) 20 mg PO DAILY benztropine 0.5 mg tablet 0.5 mg PO DAILY lurasidone [Latuda] 40 mg tablet 40 mg PO DAILY Rx Instructions: must administer with food (at least 350 calories) (DME) syringe (disposable) [BD Luer-Kayla Syringe] 5 mL syringe See Rx Instructions .ROUTE .MEDSUPPLY Qty: 100 0RF Rx Instructions: use with needle for testosterone inject q7bclul #2/mo. (DME) BD Eclipse Luer-Kayla 25 gauge x 1 1/2 needle See Rx Instructions .ROUTE .COMPLEX Qty: 6 0RF Dose Instruction: USE ONE NEEDLE TO INJECT TESTOSTERONE EVERY 2 WEEKS #2/MONTH. Rx Instructions: USE ONE NEEDLE TO INJECT TESTOSTERONE EVERY 2 WEEKS #2/MONTH. Aimovig Autoinjector 70 mg/mL auto-injector 70 mg subcut QMONTH Qty: 1 11RF testosterone cypionate 200 mg/mL oil 200 mg IM Q2W Qty: 10 0RF Rx Instructions: multi-use vial levothyroxine 25 mcg tablet 25 mcg PO DAILY acetaminophen 500 mg tablet 500 mg PO Q6H PRN PRN (Reason: pain) Qty: 60 3RF ibuprofen 600 mg tablet 600 mg PO Q8H PRN PRN (Reason: pain) Qty: 60 0RF aripiprazole 10 mg tablet 10 mg PO DAILY aripiprazole 2 mg Tablet 2 mg PO DAILY Discharge Instructions Instructions: Acute Headache (DC) Additional Instructions: Continue your usual medications for your headaches as directed by your neurologist Referrals: Peter Lebron [Primary Care Provider] - Discharge Data Discharge Date/Time-TO BE ENTERED AT DEPARTURE: 12/04/22 18:50 Medical Decision Making labs and imaging unremarkable, case discussed with Dr Coy recommends that he continue with usual migraine breakthrough meds which he has not tried yet, is provide apap and ibuprofen. he remains hemodynamically stable and is safe for discharge to home with outpatient follow up Medical Records Medical records reviewed: Yes I reviewed the patient's medical records. Imaging Data Radiologic Study: Imaging: CT Scan Radiologist's impression: Exam(s) a CT:CT head wo Exam(s) CT HEAD WO EXAM: CT HEAD WO CLINICAL HISTORY: headache, shunt. TECHNIQUE: Imaging Protocol: Axial computed tomography images with coronal and sagittal reformatted images were created and reviewed COMPARISON: CT CT HEAD WO from 05/21/2021 CR XR SHUNT SERIES from 09/12/2022 CR XR SHUNT SERIES from 12/04/2022 FINDINGS: Ventricles and Extra axial spaces: Unchanged in size and morphology.. Ventricular shunt unchanged in position. Tip projects in region of 3rd ventricle. Ventricles are decompressed. Hemorrhage: None. Cerebral parenchyma: No evidence of acute infarct or mass. Midline shift: None. Brainstem/Cerebellum: Normal. Calvarium: Multiple gala holes again noted. Visualized Paranasal sinuses/Mastoids: Clear. Soft Tissues: Unremarkable. IMPRESSION: No acute intracranial process. Ventricular peritoneal shunt unchanged in position. Ventricles unchanged in size. RADIATION DOSE DELIVERED: Total DLP DATA REPOSITORY: All CT scans at this facility are submitted to the National Radiology Data Registry (NRDR) Dose Index Registry (DIR) with the [employer] (ACR). RADIATION OPTIMIZATION: All CT scans at this facility use at least one of these dose optimization techniques: automated exposure control; mA and/or kV adjustment per patient size (includes targeted exams where dose is matched to clinical indication); or iterative reconstruction. [id number]: Total DLP = 0.00 mGy-cm Ordered By: David Yadav M.D. CC: Exam(s) XR SHUNT SERIES EXAM: XR SHUNT SERIES CLINICAL HISTORY: headache. TECHNIQUE: 2D digital imaging was performed. COMPARISON: CR XR SHUNT SERIES from 09/12/2022 Findings: SKULL: [place] holes and shunt tubing noted. Unchanged in position. No destructive osseous lesion seen. LUNGS: Clear. No pleural abnormality seen. HEART: Normal. MEDIASTINUM: Normal. BOWEL GAS PATTERN: Nondistended bowel loops. No air-fluid levels seen. ABNORMAL COLLECTIONS OF AIR: No abnormal collection of air. No pneumoperitoneum. CALCIFICATIONS: None. No radiopaque renal, ureteral, or bladder calcification. SHUNT CATHETER: Visualized portions of shunt catheter from the level of the skull to the level of the abdomen is continuous without evidence of kink or break. OTHER FINDINGS: Bones unremarkable. IMPRESSION: 1. Ventricular peritoneal shunt appears unchanged in position. No evidence of break or kink. 2. No acute pulmonary or abdominal findings. DATA REPOSITORY: RADIATION DOSE DELIVERED: HPI General Mode of arrival: ambulatory. Date/Time Provider Initiated Documentation: 12/04/22 13:42. Limitations to Documentation: no limitations. Information obtained by: patient. HPI Narrative: This is a 52-year-old male patient with a history of daily chronic headaches followed by neurology here with a [employer]OR OF [employer]POR[employer] shunt in situ who states he has been in his usual state of health up until this morning when he woke up with this headache he says it is on the right side of his head. He states this is not like his typical migraines. He has not taking any medication prior to arrival for this. He has had no fever or chills or signs of viral illness. He denies any nausea Related Data Home Medications Medication Instructions Recorded Confirmed levothyroxine 25 mcg tablet 25 mcg PO DAILY 01/27/19 12/04/22 acetaminophen 500 mg tablet 500 mg PO Q6H PRN PRN pain #60 tabs 10/11/19 12/04/22 ibuprofen 600 mg tablet 600 mg PO Q8H PRN PRN pain #60 tabs 10/11/19 12/04/22 sertraline 100 mg tablet (Zoloft) 100 mg PO DAILY 10/11/20 12/04/22 blunt needle, disposable 18 x 1 #100 ea 12/12/20 12/04/22 1/2 benztropine 0.5 mg tablet 0.5 mg PO DAILY 12/18/21 12/04/22 lurasidone 40 mg tablet (Latuda) 40 mg PO DAILY 12/18/21 12/04/22 metoprolol succinate 25 mg 25 mg PO DAILY 12/18/21 12/04/22 tablet,extended release 24 hr omeprazole 20 mg capsule,delayed 20 mg PO DAILY 12/18/21 12/04/22 release syringe (disposable) 5 mL (BD #100 ea 04/16/22 12/04/22 Luer-Kayla Syringe) safety needles 25 gauge x 1 1/2 #6 ea 04/17/22 12/04/22 (BD Eclipse Luer-Kayla) bisacodyl 5 mg tablet,delayed 5 mg PO ONCE #4 tabs 04/22/22 12/04/22 release (Dulcolax (bisacodyl)) aripiprazole 2 mg tablet 2 mg PO DAILY 05/05/22 12/04/22 atorvastatin 10 mg tablet 10 mg PO DAILY 06/04/22 12/04/22 cholecalciferol (vitamin D3) 50 50 mcg PO DAILY 06/04/22 12/04/22 mcg (2,000 unit) capsule cyanocobalamin (vitamin B-12) 500 500 mcg sublingual DAILY 06/04/22 12/04/22 mcg sublingual tablet erenumab-aooe 70 mg/mL 70 mg subcut QMONTH #1 mL 08/13/22 12/04/22 subcutaneous auto-injector (Aimovig Autoinjector) testosterone cypionate 200 mg/mL 200 mg IM Q2W #10 mL 10/23/22 12/04/22 intramuscular oil rizatriptan 10 mg tablet 10 mg PO .PRN MIGRAINES PRN 12/03/22 12/04/22 migraine headache #14 tabs aripiprazole 10 mg tablet 10 mg PO DAILY 12/04/22 12/04/22 Previous Rx's Medication Instructions Recorded acetaminophen 500 mg tablet 500 mg PO Q6H PRN PRN pain #60 tabs 10/11/19 ibuprofen 600 mg tablet 600 mg PO Q8H PRN PRN pain #60 tabs 10/11/19 blunt needle, disposable 18 x 1 #100 ea 12/12/20 1/2 syringe (disposable) 5 mL (BD #100 ea 04/16/22 Luer-Kayla Syringe) safety needles 25 gauge x 1 1/2 #6 ea 04/17/22 (BD Eclipse Luer-Kayla) bisacodyl 5 mg tablet,delayed 5 mg PO ONCE #4 tabs 04/22/22 release (Dulcolax (bisacodyl)) erenumab-aooe 70 mg/mL 70 mg subcut QMONTH #1 mL 08/13/22 subcutaneous auto-injector (Aimovig Autoinjector) testosterone cypionate 200 mg/mL 200 mg IM Q2W #10 mL 10/23/22 intramuscular oil rizatriptan 10 mg tablet 10 mg PO .PRN MIGRAINES PRN 12/03/22 migraine headache #14 tabs Allergies Allergy/AdvReac Type Severity Reaction Status Date / Time Penicillins Allergy Severe Anaphylaxsis, Verified 12/03/22 11:01 RASH vancomycin Allergy Severe Skin Rash Verified 12/03/22 11:01 latex Allergy Intermediate hives with Verified 12/03/22 11:01 latex powdered gloves General Stated Complaint: Dizzy/Sync GLO: 3 Review of Systems All systems reviewed & are unremarkable except as noted in HPI and below PFSH All Active Problems (Updated 12/04/22 @ 18:22 by Erika Lucio NP) Status migrainosus (Acute) Sessile serrated polyp of colon (Acute ~05/06/22) Internal derangement of right knee (Acute) Mild cognitive impairment (Acute) Vertigo (Acute) Odontalgia (Acute) Right ankle sprain (Acute) Suicidal ideation (Acute) Major depression (Chronic) Depression (Chronic) Right carpal tunnel syndrome (Acute) Migraine headache with aura (Acute) Ulnar neuropathy of right upper extremity (Acute) Carpal tunnel syndrome on both sides (Acute) Peripheral neuropathy (Acute) Acute stress reaction (Acute) Premature ejaculation (Acute) Hypogonadism in male (Acute) Gastritis (Acute) Esophagitis (Acute) Colorectal polyp detected on colonoscopy (Acute) Tubular adenoma in 2021 Abdominal pain (Acute) Current visit - YES Arthritis of right acromioclavicular joint (Acute 11/05/16) Chronic headaches (Acute) Medical History Asymptomatic microscopic hematuria Cognitive developmental delay CRI (chronic renal insufficiency) Depression Dyspepsia 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 is patent Hydrocephalus associated with congenital aqueduct stenosis Hypogonadism Hypothyroid Memory impairment Neck pain Persistent headaches Pseudoseizures Seizures pt. states last seizures was when he was a kid Sleep apnea central per report; wearing CPAP Tubular adenoma of colon Surgical History History of colonoscopy with polypectomy (~05/06/22) Hx of colonoscopy (~10/2021) Hx of shoulder surgery Intracranial shunt with several revisions Per pt. is patent S/P carpal tunnel release right S/P cholecystectomy Social History Smoking/Tobacco Use Status: Never Smoking risk assessment performed?: Yes Alcohol Intake: never Drug use: Never Substance use type: does not use Household members: spouse and children Number of Children: 3 current occupation: [email or web address] Current gender identity: male What is your relationship status?: Panel score (0-1 are the most socially isolated patients): 1 Seatbelt use: always Do you feel safe at home: Yes Do you feel safe in your relationship?: Yes Exam Eyes Other: Disconjugate gaze on right Course Vital Signs Vital signs: Vital Signs Temperature 36.5 C 12/04/22 13:21 Pulse 82 12/04/22 13:21 Respiratory Rate 18 12/04/22 13:21 Blood Pressure 125/99 H 12/04/22 13:21 Pulse Oximetry 95 12/04/22 13:21 Temperature 36.5 C 12/04/22 13:21 Temperature Source Skin 12/04/22 13:21 Pulse 71 12/04/22 15:45 Respiratory Rate 16 12/04/22 17:13 Respiratory Effort Normal 12/04/22 17:13 Respiratory Depth Normal 12/04/22 17:13 Respiratory Pattern Normal 12/04/22 17:13 Blood Pressure 136/97 H 12/04/22 15:45 Blood Pressure Position Sitting 12/04/22 13:21 Pulse Oximetry 95 12/04/22 15:45 Oxygen Delivery Method Room Air 12/04/22 13:21 Oxygen Flow Rate 0 12/04/22 13:21 Pain Level 8 12/04/22 15:45 Lab/Test Results Lab/Test Results: Laboratory Tests Range/Units 12/04/22 16:50 WBC (4.4-10.8) 10^3/uL 9.98 RBC (4.36-5.78) 10^6/uL 5.67 Hgb (13.5-17.5) g/dL 16.6 Hct (40.0-50.0) % 48.9 MCV (80-95) fL 86 MCH (27.0-33.0) pg 29.3 MCHC (32.0-36.0) % 33.9 RDW (11.8-14.1) % 13.1 Plt Count (130-400) 10^3/uL 223 MPV (8.0-11.0) fL 8.6 Immature Gran % 0.3 Neutrophils % 62.9 Lymphocytes % 29.4 Monocytes % 5.7 Eosinophils % 1.0 Basophils % 0.7 Nucleated RBC % (0.0-0.3) % 0.0 Absolute Neutrophils (1.2-6.7) 10^3/uL 6.28 Absolute Lymphocytes (1.2-3.4) 10^3/uL 2.93 Absolute Monocytes (0.1-0.8) 10^3/uL 0.57 Absolute Eosinophils (0.0-0.7) 10^3/uL 0.10 Absolute Basophils (0.0-0.2) 10^3/uL 0.07 Sodium (136-145) mmol/L 139 Potassium (3.5-5.1) mmol/L 4.0 Chloride (98-107) mmol/L 102 Carbon Dioxide (21.0-32.0) mmol/L 27.6 Anion Gap (3-11) mmol/L 9.4 BUN (7-18) mg/dL 13 Creatinine (0.70-1.30) mg/dL 1.3 Est GFR (CKD-EPI 2020) (mL/min/1.73m2) 66.93 Glucose (74-106) mg/dL 103 Calcium (8.5-10.1) mg/dL 9.8 Total Bilirubin (0.2-1.0) mg/dL 0.6 AST (15-37) U/L 17 ALT (16-63) U/L 34 Alkaline Phosphatase (46-116) U/L 91 C-Reactive Protein (0.0-0.3) mg/dL 0.54 H Total Protein (6.4-8.2) g/dL 8.5 H Albumin (3.4-5.0) g/dL 4.3
[2022-12-04 18:35] VITALS: BP 134/87; PULSE 78; RESP 18; O2SAT 98
[2022-12-04] MEDS: Ibuprofen 600 MG TAB PO (18:35)
[2022-12-04] MEDS: Acetaminophen 500 MG TAB 1000 MG PO (18:35)
[2022-12-04 18:51] VITALS: BP 134/93; BP 140/106; BP 150/94; PULSE 63; PULSE 65; PULSE 85
== END 2022-12-04 18:50 | disposition home or self-care (01) ==
PROVIDERS: Emergency Provider Nurse Practitioner Acute Care; PCP Physician Assistant
DX: G43.901 Migraine, unspecified, not intractable, with status migrainosus (principal)
CPT/HCPCS: 80053; 99284; 70360; 70450; 71045; 72050; 74018; 85025; 86140

== ENCOUNTER → 2022-12-17 15:04 | Outpatient (CLI) | payer MEDICARE, MEDICAID, SELFPAY ==
--- NOTE | 2022-12-17 | DI.RAD_ITS ---
Exam(s) XR KNEE LT 3V AP,LAT,SHAUNA EXAM: XR KNEE LT 3V AP,LAT,SHAUNA CLINICAL HISTORY: LT KNEE PAIN, GAVE OUT, PAIN WITH AMBULATION SINCE. TECHNIQUE: 2D digital imaging was performed. COMPARISON: CR XR KNEE RT 3V AP,LAT,SHAUNA from 03/07/2022 FINDINGS: 3 views No evidence of fracture or joint effusion. Bone density normal. No osseous lesions. No joint space narrowing. No osteophytes. No osteochondral defects. IMPRESSION: No significant osseous findings in the knee. DATA REPOSITORY: RADIATION DOSE DELIVERED:
== END ==
PROVIDERS: PCP Physician Assistant; Visit Provider Physician Assistant Medical
DX: M25.562 Pain in left knee (principal)
CPT/HCPCS: 73562

== ENCOUNTER 2023-01-26 03:54 | Outpatient (CLI) | payer MEDICARE, MEDICAID, SELFPAY ==
[2023-01-30 16:32] LABS: Testosterone, Total 1310 ng/dL (240-950)
== END 2023-01-26 03:55 | disposition home or self-care (01) ==
LOC: LBO 03:54
PROVIDERS: PCP Physician Assistant; Visit Provider Nurse Practitioner Gerontology
DX: E29.1 Testicular hypofunction (principal)
CPT/HCPCS: 36415; 84403

== ENCOUNTER → 2023-02-02 08:31 | Outpatient (BNVA) | payer MEDICARE, MEDICAID, SELFPAY | PROVIDERS: PCP Physician Assistant; Referring Provider Physician Assistant; Visit Provider Nurse Practitioner Gerontology | DX: E29.1 Testicular hypofunction (principal); R39.89 Other symptoms and signs involving the genitourinary system | CPT/HCPCS: 99213 ==

== ENCOUNTER 2023-02-26 16:22 | Emergency (ER) | payer MEDICARE, MEDICAID, SELFPAY ==
--- NOTE | 2023-02-26 16:15 | DI.CT_ITS ---
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 TECHNIQUE: Imaging Protocol: Axial computed tomography images with coronal and sagittal reformatted images were created and reviewed COMPARISON: CT CT HEAD WO from 12/04/2022 FINDINGS: Head CT Ventricles and Extra axial spaces: A ventriculoperitoneal shunt. Tip projects in 3rd ventricle. [place] tricles are unchanged in size and configuration, mainly decompressed. Stable mild dilatation of the temporal horn of the right lateral ventricle. Hemorrhage: None. Cerebral parenchyma: No evidence of mass or acute infarct. Right-sided ventriculoperitoneal shunt is again noted. Midline shift: None. Brainstem/Cerebellum: Normal. Calvarium: Right-sided gala holes again noted. Visualized Paranasal sinuses/Mastoids: Clear. Soft tissues: Right-sided shunt tubing. Cervical Spine CT BONES: Vertebral body heights are maintained. Alignment is normal. There is no evidence of acute frac ture. Degenerative disc changes and facet degenerative changes are seen, greatest at C5-6 and C6-7.. SOFT TISSUES: Right-sided shunt tubing appears intact. No paraspinal hematoma. The airway appears in tact. No pneumothorax is seen at the lung apices. IMPRESSION: Head CT: No acute abnormality.Ventriculoperitoneal shunt appears intact and unchanged in position. V entricles are unchanged. C-spine CT: Degenerative changes, no acute abnormality. RADIATION DOSE DELIVERED: !Error Total DLP DATA REPOSITORY: All CT scans at this facility are submitted to the National Radiology Data Registry (NRDR) Dose Index Registry (DIR) with the [employer] (ACR). RADIATION OPTIMIZATION: All CT scans at this facility use at least one of these dose optimization te chniques: automated exposure control; mA and/or kV adjustment per patient size (includes targeted exa ms where dose is matched to clinical indication); or iterative reconstruction.
[2023-02-26 16:27] VITALS: BP 142/89; PULSE 73; RESP 18; TEMP 35.9; O2SAT 96
[2023-02-26 16:31] VITALS: BP 142/89; PULSE 73; RESP 18; TEMP 35.9; O2SAT 96
--- OUTSIDE RECORDS SUMMARY | 2023-02-26 16:31 | XMS_ITS | Continuity of Care Document ---
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 Role Phone [facility] [id number] Date(s): 01/27/23 - 01/27/23 [facility] [address] [place] [address] Discharge Disposition: Home Allergies, Adverse Reactions, Alerts Substance Reaction Severity Status vancomycin Unknown Active penicillins Unknown Active Assessment and Plan Future Appointments Medications Aimovig SureClick Autoinjector 70 mg/mL subcutaneous solution 70 mg =, Subcutaneous, every month, # 1 mL, 0 Refill(s) Start Date: 03/13/22 Status: Ordered ARIPiprazole 10 mg oral tablet 10 mg = 1 tab, Oral, Daily, # 30 tab, 0 Refill(s) Start Date: 07/08/22 Status: Ordered atorvastatin 10 mg oral tablet 10 mg = 1 tab, Oral, Daily, # 90 tab, 0 Refill(s) Start Date: 03/13/22 Status: Ordered BD NEEDLES MIS 18GX1.5 BD NEEDLES MIS 18GX1.5, 0 Refill(s) Start Date: 03/13/22 Status: Ordered benztropine 0.5 mg oral tablet 0.5 mg = 1 tab, Oral, every day at bedtime, # 90 tab, 0 Refill(s) Start Date: 03/13/22 Status: Ordered ECLIPSE NDLE MIS 25GX1.5 ECLIPSE NDLE MIS 25GX1.5, 0 Refill(s) Start Date: 03/13/22 Status: Ordered ECLIPSE NDLE MIS 25GX1.5 ECLIPSE NDLE MIS 25GX1.5, 0 Refill(s) Start Date: 03/13/22 Status: Ordered hydrOXYzine hydrochloride 25 mg oral tablet 25 mg = 1 tab, Oral, Daily, # 30 tab, 0 Refill(s) Start Date: 07/08/22 Status: Ordered hydrOXYzine hydrochloride 25 mg oral tablet 0 Refill(s) Start Date: 07/08/22 Status: Ordered levothyroxine 25 mcg (0.025 mg) oral tablet 25 mcg = 1 tab, Oral, Daily, # 30 tab, 0 Refill(s) Start Date: 03/13/22 Status: Ordered LUER-TERRELL MIS SYRG 5ML LUER-TERRELL MIS SYRG 5ML, 0 Refill(s) Start Date: 03/13/22 Status: Ordered METOPROLOL SUCCINATE ER 25 MG TB24 METOPROLOL SUCCINATE ER 25 MG TB24, 0 Refill(s) Start Date: 07/08/22 Status: Ordered rizatriptan 10 mg oral tablet 10 mg = 1 tab, Oral, Daily, PRN as needed for migraine headache, may repeat dose every 2 hours up to a maximum of 30 mg in 24 hours, # 6 tab, 0 Refill(s) Start Date: 03/13/22 Status: Ordered sertraline 100 mg oral tablet 100 mg = 1 tab, Oral, Daily, # 30 tab, 0 Refill(s) Start Date: 03/13/22 Status: Ordered Testosterone Cypionate 200 mg/mL intramuscular solution 400 mg = 2 mL, IM, every 2 wk, 0 Refill(s) Start Date: 03/13/22 Status: Ordered topiramate 25 mg oral tablet 50 mg = 2 tab, Oral, Daily, # 60 tab, 0 Refill(s) Start Date: 03/13/22 Status: Ordered Vitamin D3 2000 intl units oral capsule 50 mcg 1 cap, Oral, Daily, # 60 cap, 0 Refill(s) Start Date: 07/08/22 Status: Ordered Problem List Condition Confirmation Course Effective Dates Status H ealth Status Informant Abnormal testosterone Confirmed 08/14/17 Active Congenital hydrocephalus Confirmed Active Epilepsy Confirmed Active Fatigue Confirmed Active Hypersomnia Confirmed Active Testosterone deficiency Confirmed Active Hypothyroidism Confirmed Active Insomnia Confirmed Active Migraine Confirmed Active Neurological finding Confirmed Active Obstructive sleep apnea syndrome Confirmed Active Overweight Confirmed Active Snoring Confirmed Active Social History Social History Type Response Tobacco Never tobacco user T obacco Use:. Sex Male Patient Care team information Care Team Personnel Name: Bernardino [facility], Peter DURH[place] Position: No Access Member Role: Primary Care Physician Address: Address: [id number] [place] [address] Care Team Related Persons Name: ANURADHA GONZALEZ
--- NOTE | 2023-02-26 16:34 | ED.GENADUL_ITS ---
HPI General Stated Complaint: Headache Mode of arrival: ambulatory. GLO: 3 Date/Time Provider Initiated Documentation: 02/26/23 16:24. Limitations to Documentation: no limitations. Information obtained by: patient, RN/MD (Seen at [facility]), RN notes reviewed and old records reviewed. 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 He reports that he did not hit his head that he knows of however he did have like a whiplash type movement of his neck. He is complaining of generalized headache, upper mid neck pain and fatigue. He denies any nausea vomiting. He reports that he fell backwards landing on his right shoulder. He has full range of motion noted to his right upper extremity no diplopia. He does have a history of a lazy eye noted to his right eye. He reports pain with upper gaze. He did take 2 ibuprofen and a rizatriptan prior to arrival. Other past medical history includes chronic renal insufficiency, cognitive developmental delay, tubular adenoma of colon, hypertension hyperlipidemia depression hypothyroidism hearing loss memory impairment. On exam he has no hematoma, no new focal neurodeficits. He is alert and oriented x 4. Related Data Home Medications Medication Instructions Recorded Confirmed levothyroxine 25 mcg tablet 25 mcg PO DAILY 01/27/19 02/26/23 acetaminophen 500 mg tablet 500 mg PO Q6H PRN PRN pain #60 tabs 10/11/19 02/26/23 ibuprofen 600 mg tablet 600 mg PO Q8H PRN PRN pain #60 tabs 10/11/19 02/26/23 sertraline 100 mg tablet (Zoloft) 100 mg PO DAILY 10/11/20 02/26/23 benztropine 0.5 mg tablet 0.5 mg PO DAILY 12/18/21 02/26/23 lurasidone 40 mg tablet (Latuda) 40 mg PO DAILY 12/18/21 02/26/23 metoprolol succinate 25 mg 25 mg PO DAILY 12/18/21 02/26/23 tablet,extended release 24 hr omeprazole 20 mg capsule,delayed 20 mg PO DAILY 12/18/21 02/26/23 release syringe (disposable) 5 mL (BD #100 ea 04/16/22 02/26/23 Luer-Kayla Syringe) safety needles 25 gauge x 1 1/2 #6 ea 04/17/22 02/26/23 (BD Eclipse Luer-Kayla) aripiprazole 2 mg tablet 2 mg PO DAILY 05/05/22 02/26/23 atorvastatin 10 mg tablet 10 mg PO DAILY 06/04/22 02/26/23 cholecalciferol (vitamin D3) 50 50 mcg PO DAILY 06/04/22 02/26/23 mcg (2,000 unit) capsule cyanocobalamin (vitamin B-12) 500 500 mcg sublingual DAILY 06/04/22 02/26/23 mcg sublingual tablet erenumab-aooe 70 mg/mL 70 mg subcut QMONTH #1 mL 08/13/22 02/26/23 subcutaneous auto-injector (Aimovig Autoinjector) rizatriptan 10 mg tablet 10 mg PO .PRN MIGRAINES PRN 12/03/22 02/26/23 migraine headache #14 tabs aripiprazole 10 mg tablet 10 mg PO DAILY 12/04/22 02/26/23 blunt needle, disposable 18 x 1 #100 ea 12/29/22 02/26/23 1/2 testosterone cypionate 200 mg/mL 200 mg IM Q2W #10 mL 02/02/23 02/26/23 intramuscular oil Previous Rx's Medication Instructions Recorded acetaminophen 500 mg tablet 500 mg PO Q6H PRN PRN pain #60 tabs 10/11/19 ibuprofen 600 mg tablet 600 mg PO Q8H PRN PRN pain #60 tabs 10/11/19 syringe (disposable) 5 mL (BD #100 ea 04/16/22 Luer-Kayla Syringe) safety needles 25 gauge x 1 1/2 #6 ea 04/17/22 (BD Eclipse Luer-Kayla) erenumab-aooe 70 mg/mL 70 mg subcut QMONTH #1 mL 08/13/22 subcutaneous auto-injector (Aimovig Autoinjector) rizatriptan 10 mg tablet 10 mg PO .PRN MIGRAINES PRN 12/03/22 migraine headache #14 tabs blunt needle, disposable 18 x 1 #100 ea 12/29/22 1/2 testosterone cypionate 200 mg/mL 200 mg IM Q2W #10 mL 12/11/23 intramuscular oil Allergies Allergy/AdvReac Type Severity Reaction Status Date / Time Penicillins Allergy Severe Anaphylaxsis, Verified 02/26/23 16:34 RASH vancomycin Allergy Severe Skin Rash Verified 02/26/23 16:34 latex Allergy Intermediate hives with Verified 02/26/23 16:34 latex powdered gloves Review of Systems All systems reviewed & are unremarkable except as noted in HPI and below Constitutional Constitutional: Reports as per HPI and Reports headache(s) ENT Ears, Nose, Mouth, and Throat: Reports headache(s) and Reports neck pain Cardiovascular Cardiovascular: Denies syncope Musculoskeletal Musculoskeletal: Reports neck pain Neurologic Neurologic: Reports as per HPI, Denies syncope and Reports headache(s) PFSH All Active Problems (Updated 02/26/23 @ 17:43 by Caro Friedman NP) Concussion (Acute) Acute cervical myofascial strain (Acute) Status migrainosus (Acute) Sessile serrated polyp of colon (Acute ~05/06/22) Internal derangement of right knee (Acute) Mild cognitive impairment (Acute) Vertigo (Acute) Odontalgia (Acute) Right ankle sprain (Acute) Suicidal ideation (Acute) Major depression (Chronic) Depression (Chronic) Right carpal tunnel syndrome (Acute) Migraine headache with aura (Acute) Ulnar neuropathy of right upper extremity (Acute) Carpal tunnel syndrome on both sides (Acute) Peripheral neuropathy (Acute) Acute stress reaction (Acute) Premature ejaculation (Acute) Hypogonadism in male (Acute) Gastritis (Acute) Esophagitis (Acute) Colorectal polyp detected on colonoscopy (Acute) Tubular adenoma in 2021 Abdominal pain (Acute) Current visit - YES Arthritis of right acromioclavicular joint (Acute 11/05/16) Chronic headaches (Acute) Medical History Hearing loss Hydrocephalus associated with congenital aqueduct stenosis Memory impairment Seizures pt. states last seizures was when he was a kid Persistent headaches CRI (chronic renal insufficiency) Cognitive developmental delay Pseudoseizures Hypogonadism Exotropia of right eye congenital Asymptomatic microscopic hematuria Tubular adenoma of colon History of head injury Per pt. split his eyebrow open 07/2019 Epilepsy in childhood; adult with non-epileptic seizures HTN (hypertension) HLD (hyperlipidemia) Neck pain Sleep apnea central per report; wearing CPAP Depression Dyspepsia Hypothyroid Hydrocephalus 2/2 congenital aqueductal stenosis s/p MANAGEMENT PSYCHOLOGIST shunt Per pt. is patent Surgical History History of colonoscopy with polypectomy (~05/06/22) Hx of shoulder surgery Hx of colonoscopy (~10/2021) S/P carpal tunnel release right S/P cholecystectomy Intracranial shunt with several revisions Per pt. is patent Social History Smoking/Tobacco Use Status: Never Smoking risk assessment performed?: Yes Alcohol Intake: never Drug use: Never Substance use type: does not use Household members: spouse and children Number of Children: 3 current occupation: [employer] Current gender identity: male What is your relationship status?: Panel score (0-1 are the most socially isolated patients): 1 Seatbelt use: always Do you feel safe at home: Yes Do you feel safe in your relationship?: Yes Course Vital Signs Vital signs: Vital Signs Temperature 35.9 C L 02/26/23 16:27 Pulse 73 02/26/23 16:27 Respiratory Rate 18 02/26/23 16:27 Blood Pressure 142/89 H 02/26/23 16:27 Pulse Oximetry 96 02/26/23 16:27 Temperature 35.9 C L 02/26/23 16:31 Temperature Source Skin 02/26/23 16:31 Pulse 73 02/26/23 16:31 Respiratory Rate 18 02/26/23 16:31 Respiratory Effort Normal 02/26/23 16:30 Blood Pressure 142/89 H 02/26/23 16:31 Blood Pressure Position Sitting 02/26/23 16:31 Pulse Oximetry 96 02/26/23 16:31 Oxygen Delivery Method Room Air 02/26/23 16:31 Oxygen Flow Rate 0 02/26/23 16:31 Pain Level 7 02/26/23 16:32 Medical Decision Making 52-year-old male with a past medical history of 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 He reports that he did not hit his head that he knows of however he did have like a whiplash type movement of his neck. He is complaining of generalized headache, upper mid neck pain and fatigue. He denies any nausea vomiting. He reports that he fell backwards landing on his right shoulder. He has full range of motion noted to his right upper extremity no diplopia. He does have a history of a lazy eye noted to his right eye. He reports pain with upper gaze. He did take 2 ibuprofen and a rizatriptan prior to arrival. Other past medical history includes chronic renal insufficiency, cognitive developmental delay, tubular adenoma of colon, hypertension hyperlipidemia depression hypothyroidism hearing loss memory impairment. On exam he has no hematoma, no new focal neurodeficits. He is alert and oriented x 4. CT head and C-spine without contrast ordered. 10 mg of Flexeril. Differential diagnosis includes but not limited to concussion, cervical strain, closed head injury, MANAGEMENT PSYCHOLOGIST shunt complication, less likely CVA. CT head and C-spine shows no acute abnormality MANAGEMENT PSYCHOLOGIST shunt is intact and appears unchanged, no acute abnormality of the C-spine. Please see official report. I will discharge patient with Flexeril and instruct on concussion and cervical strain home care. Quality:[facility] Health Related Social Needs: No Data to Display Discharge Plan Disposition Patient Disposition: Home Condition: Stable Discharge Details Clinical Impression: Acute cervical myofascial strain, Concussion Primary Care Provider: Peter Lebron ED Provider: Caro Friedman Home Meds and New Rx's Prescriptions: No Action atorvastatin 10 mg tablet 10 mg PO DAILY cyanocobalamin (vitamin B-12) 500 mcg tablet, sublingual 500 mcg sublingual DAILY cholecalciferol (vitamin D3) 50 mcg (2,000 unit) capsule 50 mcg PO DAILY sertraline [Zoloft] 100 mg tablet 100 mg PO DAILY rizatriptan 10 mg tablet 10 mg PO .PRN MIGRAINES PRN (Reason: migraine headache) Qty: 14 3RF Rx Instructions: Take one tab at onset of migraine. May repeat after 2 hours if needed. No more than 2 tabs in 24 hours. testosterone cypionate 200 mg/mL oil 200 mg IM Q2W Qty: 10 0RF Rx Instructions: multi-use vial metoprolol succinate 25 mg tablet extended release 24 hr 25 mg PO DAILY omeprazole 20 mg capsule,delayed release(DR/EC) 20 mg PO DAILY benztropine 0.5 mg tablet 0.5 mg PO DAILY lurasidone [Latuda] 40 mg tablet 40 mg PO DAILY Rx Instructions: must administer with food (at least 350 calories) (DME) syringe (disposable) [BD Luer-Kayla Syringe] 5 mL syringe See Rx Instructions .ROUTE .MEDSUPPLY Qty: 100 0RF Rx Instructions: use with needle for testosterone inject [id number] #2/mo. (DME) BD Eclipse Luer-Kayla 25 gauge x 1 1/2 needle See Rx Instructions .ROUTE .COMPLEX Qty: 6 0RF Dose Instruction: USE ONE NEEDLE TO INJECT TESTOSTERONE EVERY 2 WEEKS #2/MONTH. Rx Instructions: USE ONE NEEDLE TO INJECT TESTOSTERONE EVERY 2 WEEKS #2/MONTH. Aimovig Autoinjector 70 mg/mL auto-injector 70 mg subcut QMONTH Qty: 1 11RF (DME) blunt needle, disposable 18 x 1 1/2 needle See Rx Instructions .ROUTE .MEDSUPPLY Qty: 100 0RF Rx Instructions: Use one needle to draw up testosterone q 2 weeks. #2/month levothyroxine 25 mcg tablet 25 mcg PO DAILY acetaminophen 500 mg tablet 500 mg PO Q6H PRN PRN (Reason: pain) Qty: 60 3RF ibuprofen 600 mg tablet 600 mg PO Q8H PRN PRN (Reason: pain) Qty: 60 0RF aripiprazole 10 mg tablet 10 mg PO DAILY aripiprazole 2 mg Tablet 2 mg PO DAILY Discharge Instructions Instructions: Cervical Strain (ED), Concussion (ED) Additional Instructions: CT shows that the MANAGEMENT PSYCHOLOGIST shunt appears intact and in unchanged position. No acute abnormality on your next in your bone. You have some degenerative changes/arthritis to your neck which may be exacerbated by the fall. Please take the muscle relaxers as directed. They may make you sleepy. Please take Tylenol or Ibuprofen with food every 4-6 hours as needed for pain and swelling. Return to the ER for any vomiting, worsening headache not relieved by Tylenol or ibuprofen, weakness confusion or concerns. Alternate ice and heat. Referrals: Peter Lebron [Primary Care Provider] - 5 days Discharge Data Discharge Date/Time-TO BE ENTERED AT DEPARTURE: 02/26/23 17:54
[2023-02-26] MEDS: Cyclobenzaprine 10 MG TAB PO (16:38)
[2023-02-26] MEDS: Cyclobenzaprine 10 MG TAB, 3 TABS/BTL PO (17:49)
[2023-02-26 17:52] VITALS: BP 131/78; PULSE 71; RESP 16; O2SAT 94
== END 2023-02-26 17:54 | disposition home or self-care (01) ==
PROVIDERS: Emergency Provider Registered Nurse Emergency; PCP Physician Assistant
DX: S16.1XXA Strain of muscle, fascia and tendon at neck level, initial encounter (principal); S06.0X0A Concussion without loss of consciousness, initial encounter; W00.0XXA Fall on same level due to ice and snow, initial encounter; Y93.01 Activity, walking, marching and hiking; Z98.2 Presence of cerebrospinal fluid drainage device; Q03.0 Malformations of aqueduct of Sylvius; I10 Essential (primary) hypertension; E78.5 Hyperlipidemia, unspecified
CPT/HCPCS: 99284; 70450; 72125; 99283

== ENCOUNTER 2023-03-02 11:53 | Emergency (ER) | payer MEDICARE, MEDICAID, SELFPAY ==
[2023-03-02 12:23] VITALS: BP 151/88; PULSE 89; RESP 18; TEMP 37.2; O2SAT 95
--- NOTE | 2023-03-02 13:56 | W.ED.GENAD ---
HPI General Stated Complaint: Headache GLO: 3 Date/Time Provider Initiated Documentation: 03/02/23 13:48. HPI Narrative: MDM This is an overall very well-appearing normothermic and not tachycardic 52-year-old male with BP shunt hydrocephalus seizure disorder with continued headache and decreased energy most consistent with mild traumatic brain injury. Patient has not been vomiting and is neurologically intact beyond right-sided strabismus so my suspicion any increased ICP is low. He has had no further trauma to his head to suggest increased risk for intracranial hemorrhage. Given no vomiting nor diarrhea my suspicion for any electrolyte derangements is exceedingly low so do not feel that the patient requires a line to be placed. He has had no seizures and is not anticoagulated and given his lack of recurrent head trauma my suspicion that he will go on to develop intracranial hemorrhage is low. Will treat his symptoms of headache with acetaminophen and ibuprofen. He has not had any fevers to suggest meningitis. No pain out of proportion to suggest necrotizing soft tissue infection. He denies any weakness and has no new neurological deficits so my suspicion is low for CVA so do not feel that he requires an MRI nor would he be a candidate for tPA. No tonic-clonic activity to suggest seizure so I do not feel he requires an EEG. No fevers nor neck pain so doubt meningitis and I do not feel that the patient requires a lumbar puncture. No sore throat to suggest retropharyngeal abscess. Patient has not been vomiting so my suspicion is low for subdural empyema. Patient and I discussed mild traumatic brain injury. I advised him that he should avoid activities which exacerbate his headache. He was not nauseous so I did not provide him with ondansetron. I gave him acetaminophen and ibuprofen in the emergency department and advised ED return for any worsening headache or any nausea or vomiting any episodes of dizziness or any falls. 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 Patient was seen in the emergency department 4 days ago after slipping on some ice. He had a CT of his head and C-spine performed at that point. His head CT showed that his CLIENT ACCOUNT SPECIALIST shunt appeared intact and unchanged in position. His ventricles are unchanged. His CT cervical spine showed no acute abnormalities. He says that he has had continued headaches and decreased energy. He has not been nauseous nor vomiting. He attempted to get seen by his primary care provider but was advised to come here. He rates his headache as 8 out of 10. He has not taken any oral analgesia since last night. He is not anticoagulated. He has not had any subsequent trauma. He is currently unemployed. He denies routine tobacco, ethanol, and illicits. He is not dizzy. He has had no fevers. Exam General: Well-appearing in no acute distress speaking in complete sentences. Head: Normocephalic, atraumatic. Eye:[Pupils equal, round reactive to light.] Extraocular eye movements intact. No conjunctival injection. No scleral icterus. Right eye with strabismus. Ear, nose, mouth, throat: Grossly normal inspection. Normal voice, handling secretions normally. No hemotympanum bilaterally. Neck: Trachea midline. No midline cervical spinal tenderness. Cardiovascular: Well-perfused distal extremities. Respiratory: Nonlabored respiration. Gastrointestinal: Nondistended abdomen. Musculoskeletal: No edema. Moving all 4 extremities spontaneously. Skin: Normal for age and race, grossly normal temperature and turgor. No acute rash. Neurologic: Alert and appropriate, no apparent acute deficits. GCS 15. Psychiatric: Mood and manner are appropriate. Grooming and personal hygiene are appropriate. Related Data Home Medications Medication Instructions Recorded Confirmed levothyroxine 25 mcg tablet 25 mcg PO DAILY 01/27/19 03/02/23 acetaminophen 500 mg tablet 500 mg PO Q6H PRN PRN pain #60 tabs 10/11/19 03/02/23 ibuprofen 600 mg tablet 600 mg PO Q8H PRN PRN pain #60 tabs 10/11/19 03/02/23 sertraline 100 mg tablet (Zoloft) 100 mg PO DAILY 10/11/20 03/02/23 benztropine 0.5 mg tablet 0.5 mg PO DAILY 12/18/21 03/02/23 lurasidone 40 mg tablet (Latuda) 40 mg PO DAILY 12/18/21 03/02/23 metoprolol succinate 25 mg 25 mg PO DAILY 12/18/21 03/02/23 tablet,extended release 24 hr omeprazole 20 mg capsule,delayed 20 mg PO DAILY 12/18/21 03/02/23 release syringe (disposable) 5 mL (BD #100 ea 04/16/22 02/26/23 Luer-Kayla Syringe) safety needles 25 gauge x 1 1/2 #6 ea 04/17/22 02/26/23 (BD Eclipse Luer-Kayla) atorvastatin 10 mg tablet 10 mg PO DAILY 06/04/22 03/02/23 cholecalciferol (vitamin D3) 50 50 mcg PO DAILY 06/04/22 03/02/23 mcg (2,000 unit) capsule cyanocobalamin (vitamin B-12) 500 500 mcg sublingual DAILY 06/04/22 03/02/23 mcg sublingual tablet erenumab-aooe 70 mg/mL 70 mg subcut QMONTH #1 mL 08/13/22 03/02/23 subcutaneous auto-injector (Aimovig Autoinjector) rizatriptan 10 mg tablet 10 mg PO .PRN MIGRAINES PRN 12/03/22 03/02/23 migraine headache #14 tabs aripiprazole 10 mg tablet 10 mg PO DAILY 12/04/22 03/02/23 blunt needle, disposable 18 x 1 #100 ea 12/29/22 02/26/23 1/2 testosterone cypionate 200 mg/mL 200 mg IM Q2W #10 mL 02/02/23 03/02/23 intramuscular oil Previous Rx's Medication Instructions Recorded acetaminophen 500 mg tablet 500 mg PO Q6H PRN PRN pain #60 tabs 10/11/19 ibuprofen 600 mg tablet 600 mg PO Q8H PRN PRN pain #60 tabs 10/11/19 syringe (disposable) 5 mL (BD #100 ea 04/16/22 Luer-Kayla Syringe) safety needles 25 gauge x 1 1/2 #6 ea 04/17/22 (BD Eclipse Luer-Kayla) erenumab-aooe 70 mg/mL 70 mg subcut QMONTH #1 mL 08/13/22 subcutaneous auto-injector (Aimovig Autoinjector) rizatriptan 10 mg tablet 10 mg PO .PRN MIGRAINES PRN 12/03/22 migraine headache #14 tabs blunt needle, disposable 18 x 1 #100 ea 12/29/22 1/2 testosterone cypionate 200 mg/mL 200 mg IM Q2W #10 mL 02/02/23 intramuscular oil Allergies Allergy/AdvReac Type Severity Reaction Status Date / Time Penicillins Allergy Severe Anaphylaxsis, Verified 03/02/23 12:25 RASH vancomycin Allergy Severe Skin Rash Verified 03/02/23 12:25 latex Allergy Intermediate hives with Verified 03/02/23 12:25 latex powdered gloves PFSH All Active Problems (Updated 03/02/23 @ 13:59 by Errol Lombardi MD) Mild TBI (traumatic brain injury) (Acute) Concussion (Acute) Acute cervical myofascial strain (Acute) Status migrainosus (Acute) Sessile serrated polyp of colon (Acute ~05/06/22) Internal derangement of right knee (Acute) Mild cognitive impairment (Acute) Vertigo (Acute) Odontalgia (Acute) Right ankle sprain (Acute) Suicidal ideation (Acute) Major depression (Chronic) Depression (Chronic) Right carpal tunnel syndrome (Acute) Migraine headache with aura (Acute) Ulnar neuropathy of right upper extremity (Acute) Carpal tunnel syndrome on both sides (Acute) Peripheral neuropathy (Acute) Acute stress reaction (Acute) Premature ejaculation (Acute) Hypogonadism in male (Acute) Gastritis (Acute) Esophagitis (Acute) Colorectal polyp detected on colonoscopy (Acute) Tubular adenoma in 2021 Abdominal pain (Acute) Current visit - YES Arthritis of right acromioclavicular joint (Acute 11/05/16) Chronic headaches (Acute) Medical History Hearing loss Hydrocephalus associated with congenital aqueduct stenosis Memory impairment Seizures pt. states last seizures was when he was a kid Persistent headaches CRI (chronic renal insufficiency) Cognitive developmental delay Pseudoseizures Hypogonadism Exotropia of right eye congenital Asymptomatic microscopic hematuria Tubular adenoma of colon History of head injury Per pt. 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 is patent Surgical History History of colonoscopy with polypectomy (~05/06/22) Hx of shoulder surgery Hx of colonoscopy (~10/2021) S/P carpal tunnel release right S/P cholecystectomy Intracranial shunt with several revisions Per pt. is patent Social History Smoking/Tobacco Use Status: Never Smoking risk assessment performed?: Yes Alcohol Intake: never Drug use: Never Substance use type: does not use Household members: spouse and children Number of Children: 3 current occupation: [employer] Current gender identity: male What is your relationship status?: Panel score (0-1 are the most socially isolated patients): 1 Seatbelt use: always Do you feel safe at home: Yes Do you feel safe in your relationship?: Yes Course Vital Signs Vital signs: Vital Signs Temperature 37.2 C 03/02/23 12:23 Pulse 89 03/02/23 12:23 Respiratory Rate 18 03/02/23 12:23 Blood Pressure 151/88 H 03/02/23 12:23 Pulse Oximetry 95 03/02/23 12:23 Temperature 37.2 C 03/02/23 12:23 Temperature Source Skin 03/02/23 12:23 Pulse 89 03/02/23 12:23 Respiratory Rate 18 03/02/23 12:23 Blood Pressure 151/88 H 03/02/23 12:23 Blood Pressure Position Sitting 03/02/23 12:23 Pulse Oximetry 95 03/02/23 12:23 Oxygen Delivery Method Room Air 03/02/23 12:23 Oxygen Flow Rate 0 03/02/23 12:23 Pain Level 8 03/02/23 12:23 Medical Decision Making Quality:SDOH Health Related Social Needs: No Data to Display Discharge Plan Disposition Patient Disposition: Home Discharge Details Clinical Impression: Mild TBI (traumatic brain injury) Primary Care Provider: Peter Lebron ED Provider: Errol Lombardi Home Meds and New Rx's Prescriptions: Continued atorvastatin 10 mg tablet 10 mg PO DAILY cyanocobalamin (vitamin B-12) 500 mcg tablet, sublingual 500 mcg sublingual DAILY cholecalciferol (vitamin D3) 50 mcg (2,000 unit) capsule 50 mcg PO DAILY sertraline [Zoloft] 100 mg tablet 100 mg PO DAILY rizatriptan 10 mg tablet 10 mg PO .PRN MIGRAINES PRN (Reason: migraine headache) Qty: 14 3RF Rx Instructions: Take one tab at onset of migraine. May repeat after 2 hours if needed. No more than 2 tabs in 24 hours. testosterone cypionate 200 mg/mL oil 200 mg IM Q2W Qty: 10 0RF Rx Instructions: multi-use vial metoprolol succinate 25 mg tablet extended release 24 hr 25 mg PO DAILY omeprazole 20 mg capsule,delayed release(DR/EC) 20 mg PO DAILY benztropine 0.5 mg tablet 0.5 mg PO DAILY lurasidone [Latuda] 40 mg tablet 40 mg PO DAILY Rx Instructions: must administer with food (at least 350 calories) (DME) syringe (disposable) [BD Luer-Kayla Syringe] 5 mL syringe See Rx Instructions .ROUTE .MEDSUPPLY Qty: 100 0RF Rx Instructions: use with needle for testosterone inject [id number] #2/mo. (DME) BD Eclipse Luer-Kayla 25 gauge x 1 1/2 needle See Rx Instructions .ROUTE .COMPLEX Qty: 6 0RF Dose Instruction: USE ONE NEEDLE TO INJECT TESTOSTERONE EVERY 2 WEEKS #2/MONTH. Rx Instructions: USE ONE NEEDLE TO INJECT TESTOSTERONE EVERY 2 WEEKS #2/MONTH. Aimovig Autoinjector 70 mg/mL auto-injector 70 mg subcut QMONTH Qty: 1 11RF (DME) blunt needle, disposable 18 x 1 1/2 needle See Rx Instructions .ROUTE .MEDSUPPLY Qty: 100 0RF Rx Instructions: Use one needle to draw up testosterone q 2 weeks. #2/month levothyroxine 25 mcg tablet 25 mcg PO DAILY acetaminophen 500 mg tablet 500 mg PO Q6H PRN PRN (Reason: pain) Qty: 60 3RF ibuprofen 600 mg tablet 600 mg PO Q8H PRN PRN (Reason: pain) Qty: 60 0RF aripiprazole 10 mg tablet 10 mg PO DAILY Discharge Instructions Instructions: Head Injury (ED) Additional Instructions: You are seen in the emergency department for your head injury. You are likely having the symptoms of a concussion. Please return to the emergency department if you develop nausea or vomiting that does not stop if you lose your balance or if you have any other concerns. For your pain please take medications as follows: 1. Take acetaminophen (Tylenol), 1,000 mg (two 500 mg tabs) every 6 hours 2. Take ibuprofen (Advil), 400 mg every 6 hours. Discharge Data Discharge Date/Time-TO BE ENTERED AT DEPARTURE: 03/02/23 14:15
[2023-03-02] MEDS: Acetaminophen 500 MG TAB 1000 MG PO (14:08)
[2023-03-02] MEDS: Ibuprofen 600 MG TAB PO (14:09)
[2023-03-02 14:10] VITALS: BP 137/96; PULSE 68; RESP 16
== END 2023-03-02 14:15 | disposition home or self-care (01) ==
PROVIDERS: Emergency Provider Emergency Medicine; PCP Physician Assistant
DX: S06.890D Other specified intracranial injury without loss of consciousness, subsequent encounter (principal); W19.XXXD Unspecified fall, subsequent encounter; I10 Essential (primary) hypertension; E78.5 Hyperlipidemia, unspecified; Q03.8 Other congenital hydrocephalus; Z98.2 Presence of cerebrospinal fluid drainage device
CPT/HCPCS: 99283

== ENCOUNTER → 2023-06-03 09:41 | Outpatient (BNVA) | payer MEDICARE, MEDICAID, SELFPAY | PROVIDERS: PCP Physician Assistant; Visit Provider Nurse Practitioner Adult Health | DX: G43.109 Migraine with aura, not intractable, without status migrainosus (principal); G43.009 Migraine without aura, not intractable, without status migrainosus | CPT/HCPCS: 99213 ==

== ENCOUNTER 2023-06-06 12:51 | Emergency (ER) | payer MEDICARE, MEDICAID, SELFPAY ==
[2023-06-06 12:54] VITALS: BP 129/92; PULSE 81; RESP 16; TEMP 36.8; O2SAT 93
--- NOTE | 2023-06-06 13:15 | DI.CT_ITS ---
Exam(s) CT HEAD WO EXAM: CT HEAD WO CLINICAL HISTORY: shunt eval. TECHNIQUE: Imaging Protocol: Axial computed tomography images with coronal and sagittal reformatted images were created and reviewed COMPARISON: CT CT HEAD WO from 12/04/[address] HEAD CERVICAL SPINE WO from 02/26/2023 FINDINGS: Ventricles and Extra axial spaces: Normal in size and morphology for the patient's age. The patient h as a ventricular peritoneal shunt. The tip of the catheter is seen in the midline in the region of t he 3rd ventricle. Hemorrhage: None. Cerebral parenchyma: No mass effect. No areas to suggest an acute territorial infarct. Midline shift: None. Brainstem/Cerebellum: Normal. Calvarium: Prior right temporal craniotomy. Visualized Paranasal sinuses/Mastoids: Clear. Soft Tissues: Unremarkable. IMPRESSION: No acute intracranial process. RADIATION DOSE DELIVERED: Total DLP DATA REPOSITORY: All CT scans at this facility are submitted to the National Radiology Data Registry (NRDR) Dose Index Registry (DIR) with the [employer] (ACR). RADIATION OPTIMIZATION: All CT scans at this facility use at least one of these dose optimization te chniques: automated exposure control; mA and/or kV adjustment per patient size (includes targeted exa ms where dose is matched to clinical indication); or iterative reconstruction.
--- NOTE | 2023-06-06 13:15 | DI.RAD_ITS ---
Exam(s) XR SHUNT SERIES EXAM: XR SHUNT SERIES CLINICAL HISTORY: shunt eval. TECHNIQUE: 2D digital imaging was performed. COMPARISON: CR XR SHUNT SERIES from 03/13/[address] ABDOMEN PELVIS W from 03/11/2022 CR XR SHUNT SERIES from 09/12/[address] ABDOMEN PELVIS WO from 06/06/2023 Findings: SKULL: Unremarkable. No destructive osseous lesion seen. LUNGS: There is poor inspiration. No focal consolidating infiltrates are seen. No pleural abnormali ty seen. HEART: Normal. MEDIASTINUM: Normal. BOWEL GAS PATTERN: Nondistended bowel loops. No air-fluid levels seen. ABNORMAL COLLECTIONS OF AIR: No pneumoperitoneum. CALCIFICATIONS: None. No radiopaque renal, ureteral, or bladder calcification. SHUNT CATHETER: There is discontinuity of the shunt tubing seen overlying the liver shadow above the level of the cholecystectomy clips. This can be seen on the CT scan of the abdomen and pelvis (serie s 5, images 210-220. OTHER FINDINGS: There are surgical clips in the right upper quadrant of the abdomen likely reflecting prior cholecystectomy. IMPRESSION: 1. New discontinuity of the ventriculoperitoneal shunt tubing seen at the level overlying the liver s hadow above the level of the cholecystectomy clips. 2. No acute pulmonary findings. Unexpected findings DATA REPOSITORY: RADIATION DOSE DELIVERED:
--- NOTE | 2023-06-06 13:15 | DI.CT_ITS ---
Exam(s) CT ABDOMEN PELVIS WO EXAM: CT ABDOMEN PELVIS WO CLINICAL HISTORY: shunt eval. TECHNIQUE: Imaging Protocol: Axial computed tomography images with coronal and sagittal reformatted images were created and reviewed. COMPARISON: CT CT ABDOMEN PELVIS W from 03/11/2022 FINDINGS: ABDOMEN: Lung Bases: There are calcified granuloma seen in the lung bases. Liver: Normal density. No measurable mass. Gallbladder and biliary tract: Status post cholecystectomy. No biliary ductal dilatation. Pancreas: Normal density, no abnormal calcifications or inflammatory process. Spleen: Normal. Kidneys: Normal size, contour and axis.No radiodense stones or obstructive uropathy. No masses seen. Adrenal glands: No mass is seen. Lymph nodes: Within normal limits. Abdominal Aorta: Abdominal portion non-dilated. Atherosclerotic calcification is present. PELVIS: Bladder:Symmetric distention, no gross wall thickening. Bowel: No obstruction or bowel wall thickening. No evidence of appendicitis. Peritoneal cavity: No ascites, collection or mesenteric inflammatory response. No free air. The eloy triculoperitoneal shunt is unremarkable. No abnormal fluid collections are seen in the region of the tip of the shunt tubing. Reproductive organs: Unremarkable as visualized. Bones: Within normal limits. Soft Tissues: There is a small fat containing right inguinal hernia. IMPRESSION: 1. Normal appearance of the ventricular peritoneal shunt. No abnormal fluid collections are seen arou nd the shunt tubing. 2. No acute abdominal or pelvic process. RADIATION DOSE DELIVERED: 1,167.78mGy.cm Total DLP DATA REPOSITORY: All CT scans at this facility are submitted to the National Radiology Data Registry (NRDR) Dose Index Registry (DIR) with the [employer] (ACR). RADIATION OPTIMIZATION: All CT scans at this facility use at least one of these dose optimization te chniques: automated exposure control; mA and/or kV adjustment per patient size (includes targeted exa ms where dose is matched to clinical indication); or iterative reconstruction.
--- NOTE | 2023-06-06 14:18 | DI.VRAD_ITS ---
PROCEDURE INFORMATION: Exam: XR Shunt Series With 4 XR Procedures Exam date and time: 06/06/2023 1:36 PM Age: 52 years old Clinical indication: Condition or disease; Other: Shunt evaluation TECHNIQUE: Imaging protocol: XR Shunt Series was performed with skull less than 4 views, neck 1 view, chest 1 view, and abdomen 1 view. COMPARISON: CT HEAD CERVICAL SPINE WO 02/26/2023 4:48 PM FINDINGS: Tubes, catheters and devices: Ventriculoperitoneal catheter is present. Catheter is seen on the right. The catheter is seen coursing through the neck and chest. The distal catheter tip in the abdomen. No kinking. No breakage. Sinuses: Visualized paranasal sinuses are well aerated. Lungs: No consolidations. Gastrointestinal tract: Bowel is unremarkable. Bones/joints: No fracture. No dislocation. Soft tissues: Unremarkable. Other findings: Right upper quadrant and left mid to lower quadrant surgical clips. Mildly enlarged cardiac silhouette, likely accentuated by reduced lung volumes. Degenerative change of the spine. IMPRESSION: Ventriculoperitoneal catheter is present. Catheter is seen on the right. The catheter is seen coursing through the neck and chest. The distal catheter tip in the abdomen. No kinking. No breakage. Dictated and Authenticated by: Rani Rubio MD. Ordering:[facility] Val Savage MD
--- NOTE | 2023-06-06 14:33 | W.ED.GENAD ---
Discharge Plan Disposition Patient Disposition: Home Condition: Stable Discharge Details Clinical Impression: Abdominal pain Primary Care Provider: Peter Lebron ED Provider: Lavell Neal Home Meds and New Rx's Prescriptions: No Action atorvastatin 10 mg tablet 10 mg PO DAILY cyanocobalamin (vitamin B-12) 500 mcg tablet, sublingual 500 mcg sublingual DAILY cholecalciferol (vitamin D3) 50 mcg (2,000 unit) capsule 50 mcg PO DAILY rizatriptan 10 mg tablet 10 mg PO .PRN MIGRAINES PRN (Reason: migraine headache) Qty: 14 3RF Rx Instructions: Take one tab at onset of migraine. May repeat after 2 hours if needed. No more than 2 tabs in 24 hours. testosterone cypionate 200 mg/mL oil 200 mg IM Q2W Qty: 10 0RF Rx Instructions: multi-use vial Aimovig Autoinjector 70 mg/mL auto-injector 70 mg subcut QMONTH Qty: 1 11RF metoprolol succinate 25 mg tablet extended release 24 hr 25 mg PO DAILY omeprazole 20 mg capsule,delayed release(DR/EC) 20 mg PO DAILY benztropine 0.5 mg tablet 0.5 mg PO DAILY lurasidone [Latuda] 40 mg tablet 40 mg PO DAILY Rx Instructions: must administer with food (at least 350 calories) (DME) syringe (disposable) [BD Luer-Kayla Syringe] 5 mL syringe See Rx Instructions .ROUTE .MEDSUPPLY Qty: 100 0RF Rx Instructions: use with needle for testosterone inject [id number] #2/mo. (DME) BD Eclipse Luer-Kayla 25 gauge x 1 1/2 needle See Rx Instructions .ROUTE .COMPLEX Qty: 6 0RF Dose Instruction: USE ONE NEEDLE TO INJECT TESTOSTERONE EVERY 2 WEEKS #2/MONTH. Rx Instructions: USE ONE NEEDLE TO INJECT TESTOSTERONE EVERY 2 WEEKS #2/MONTH. (DME) blunt needle, disposable 18 x 1 1/2 needle See Rx Instructions .ROUTE .MEDSUPPLY Qty: 100 0RF Rx Instructions: Use one needle to draw up testosterone q 2 weeks. #2/month levothyroxine 25 mcg tablet 25 mcg PO DAILY acetaminophen 500 mg tablet 500 mg PO Q6H PRN PRN (Reason: pain) Qty: 60 3RF ibuprofen 600 mg tablet 600 mg PO Q8H PRN PRN (Reason: pain) Qty: 60 0RF aripiprazole 10 mg tablet 10 mg PO DAILY hydroxyzine HCl 25 mg tablet 25 mg PO Q6H PRN sertraline 100 mg tablet 100 mg PO DAILY Discharge Instructions Instructions: Abdominal Pain (ED) Additional Instructions: Monitor symptoms. If you develop fever, vomiting, headaches or visual changes please return for reevaluation. Please follow-up with your neurosurgeon. Discharge Data Discharge Date/Time-TO BE ENTERED AT DEPARTURE: 06/06/23 16:10 HPI General Date/Time Provider Initiated Documentation: 06/06/23 13:19. Limitations to Documentation: no limitations. Information obtained by: patient. 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 He reports that he has been having pain since yesterday over the area of the shunt in his right lower quadrant. He denies any history of headaches or visual change. He reports that he does have a seizure disorder, but has not had any seizures recently. Denies any nausea, vomiting or fever. Related Data Home Medications Medication Instructions Recorded Confirmed levothyroxine 25 mcg tablet 25 mcg PO DAILY 01/27/19 06/06/23 acetaminophen 500 mg tablet 500 mg PO Q6H PRN PRN pain #60 tabs 10/11/19 06/06/23 ibuprofen 600 mg tablet 600 mg PO Q8H PRN PRN pain #60 tabs 10/11/19 06/06/23 benztropine 0.5 mg tablet 0.5 mg PO DAILY 12/18/21 06/06/23 lurasidone 40 mg tablet (Latuda) 40 mg PO DAILY 12/18/21 06/06/23 metoprolol succinate 25 mg 25 mg PO DAILY 12/18/21 06/06/23 tablet,extended release 24 hr omeprazole 20 mg capsule,delayed 20 mg PO DAILY 12/18/21 06/06/23 release syringe (disposable) 5 mL (BD #100 ea 04/16/22 02/26/23 Luer-Kayla Syringe) safety needles 25 gauge x 1 1/2 #6 ea 04/17/22 02/26/23 (BD Eclipse Luer-Kayla) atorvastatin 10 mg tablet 10 mg PO DAILY 06/04/22 06/06/23 cholecalciferol (vitamin D3) 50 50 mcg PO DAILY 06/04/22 06/06/23 mcg (2,000 unit) capsule cyanocobalamin (vitamin B-12) 500 500 mcg sublingual DAILY 06/04/22 06/06/23 mcg sublingual tablet rizatriptan 10 mg tablet 10 mg PO .PRN MIGRAINES PRN 12/03/22 06/06/23 migraine headache #14 tabs aripiprazole 10 mg tablet 10 mg PO DAILY 12/04/22 06/06/23 blunt needle, disposable 18 x 1 #100 ea 12/29/22 02/26/2302/24 testosterone cypionate 200 mg/mL 200 mg IM Q2W #10 mL 02/02/23 06/06/23 intramuscular oil erenumab-aooe 70 mg/mL 70 mg subcut QMONTH #1 mL 06/03/23 06/06/23 subcutaneous auto-injector (Aimovig Autoinjector) hydroxyzine HCl 25 mg tablet 25 mg PO Q6H PRN 06/06/23 06/06/23 sertraline 100 mg tablet 100 mg PO DAILY 06/06/23 06/06/23 Previous Rx's Medication Instructions Recorded acetaminophen 500 mg tablet 500 mg PO Q6H PRN PRN pain #60 tabs 10/11/19 ibuprofen 600 mg tablet 600 mg PO Q8H PRN PRN pain #60 tabs 10/11/19 syringe (disposable) 5 mL (BD #100 ea 04/16/22 Luer-Kayla Syringe) safety needles 25 gauge x 1 1/2 #6 ea 04/17/22 (BD Eclipse Luer-Kayla) rizatriptan 10 mg tablet 10 mg PO .PRN MIGRAINES PRN 12/03/22 migraine headache #14 tabs blunt needle, disposable 18 x 1 #100 ea 12/29/22 12 testosterone cypionate 200 mg/mL 200 mg IM Q2W #10 mL 02/02/23 intramuscular oil erenumab-aooe 70 mg/mL 70 mg subcut QMONTH #1 mL 06/03/23 subcutaneous auto-injector (Aimovig Autoinjector) Allergies Allergy/AdvReac Type Severity Reaction Status Date / Time Penicillins Allergy Severe Anaphylaxsis, Verified 06/06/23 12:57 RASH vancomycin Allergy Severe Skin Rash Verified 06/06/23 12:57 latex Allergy Intermediate hives with Verified 06/06/23 12:57 latex powdered gloves General Stated Complaint: Abd Prob GLO: 3 Exam Narrative Exam Narrative: Review of Systems: All systems reviewed & are unremarkable except as noted in HPI and below Well-developed, no acute distress NCAT Disconjugate gaze, normal conjunctiva RRR Unlabored respiratory effort, clear bilaterally Nondistended abdomen , surgical scars noted, some tenderness in the right lower quadrant, patient does feel palpable Extremities w/o deformity, no cyanosis, no edema No rashes or lesions. no focal neurologic deficits Appropriate mood and affect Course Vital Signs Vital signs: Vital Signs Temperature 36.8 C 06/06/23 12:54 Pulse 81 06/06/23 12:54 Respiratory Rate 16 06/06/23 12:54 Blood Pressure 129/92 H 06/06/23 12:54 Pulse Oximetry 93 06/06/23 12:54 Temperature 36.8 C 06/06/23 12:54 Pulse 81 06/06/23 12:54 Respiratory Rate 16 06/06/23 12:54 Respiratory Effort Normal 06/06/23 13:32 Blood Pressure 129/92 H 06/06/23 12:54 Pulse Oximetry 93 06/06/23 12:54 Pain Level 6 06/06/23 13:32 Medical Decision Making Emergent evaluation of abdominal pain. He reports pain over the shunt in his abdomen. He has got no symptoms concerning for shunt failure at this time. No sick symptoms concerning for infectious etiology. His abdominal exam is otherwise benign. Plan for shunt evaluation and reassessment. CT imaging obtained. There does not appear to be any acute abnormality of the shunt. Given his lack of sick symptoms, I doubt an acute intra-abdominal process. Recommend that he follow back up with his neurosurgery for reevaluation if he has ongoing pain. Medical Records Medical records reviewed: Yes I reviewed the patient's medical records. Lab Data Lab results reviewed: Yes I reviewed the patient's lab results. Quality:SDOH Health Related Social Needs: No Data to Display PFSH All Active Problems (Updated 06/06/23 @ 16:06 by Lavell Neal MD) Migraine headache without aura (Acute) Status migrainosus (Acute) Sessile serrated polyp of colon (Acute ~05/06/22) Internal derangement of right knee (Acute) Mild cognitive impairment (Acute) Vertigo (Acute) Odontalgia (Acute) Right ankle sprain (Acute) Suicidal ideation (Acute) Major depression (Chronic) Depression (Chronic) Right carpal tunnel syndrome (Acute) Migraine headache with aura (Acute) Ulnar neuropathy of right upper extremity (Acute) Carpal tunnel syndrome on both sides (Acute) Peripheral neuropathy (Acute) Acute stress reaction (Acute) Premature ejaculation (Acute) Hypogonadism in male (Acute) Gastritis (Acute) Esophagitis (Acute) Colorectal polyp detected on colonoscopy (Acute) Tubular adenoma in 2021 Abdominal pain (Acute) Current visit - YES Arthritis of right acromioclavicular joint (Acute 11/05/16) Chronic headaches (Acute) Medical History Hearing loss Hydrocephalus associated with congenital aqueduct stenosis Memory impairment Seizures pt. states last seizures was when he was a kid Persistent headaches CRI (chronic renal insufficiency) Cognitive developmental delay Pseudoseizures Hypogonadism Exotropia of right eye congenital Asymptomatic microscopic hematuria Tubular adenoma of colon History of head injury Per pt. 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 is patent Surgical History History of colonoscopy with polypectomy (~05/06/22) Hx of shoulder surgery Hx of colonoscopy (~10/2021) S/P carpal tunnel release right S/P cholecystectomy Intracranial shunt with several revisions Per pt. is patent Social History Smoking/Tobacco Use Status: Never Smoking risk assessment performed?: Yes Alcohol Intake: never Drug use: Never Substance use type: does not use Household members: spouse and children Number of Children: 3 current occupation: [employer], [employer] Current gender identity: male What is your relationship status?: Panel score (0-1 are the most socially isolated patients): 1 Seatbelt use: always Do you feel safe at home: Yes Do you feel safe in your relationship?: Yes
--- NOTE | 2023-06-06 14:42 | DI.VRAD_ITS ---
Addendum created by Rani Rubio DO on 06/06/2023 2:47:20 PM EDT: Addendum, 06/06/2023 2:46 p.m.: Unchanged mild dilatation of temporal horn of the right lateral ventricle. Initial report created on 06/06/2023 2:41:38 PM EDT: PROCEDURE INFORMATION: Exam: CT Head Without Contrast Exam date and time: 06/06/2023 1:44 PM Age: 52 years old Clinical indication: Device placement; Cerebral fluid drainage device or shunt TECHNIQUE: Imaging protocol: Computed tomography of the head without contrast. COMPARISON: CT HEAD CERVICAL SPINE WO 02/26/2023 4:48 PM FINDINGS: Brain: Normal. No hemorrhage. Unremarkable white matter. No mass effect. Cerebral ventricles: Unchanged in size and morphology. Ventricular shunt unchanged. in position. Tip projects in region of 3rd ventricle. Ventricles are decompressed. Paranasal sinuses: Visualized sinuses are unremarkable. No fluid levels. Mastoid air cells: Visualized mastoid air cells are well aerated. Bones/joints: Unremarkable. No acute fracture. Soft tissues: Unremarkable. IMPRESSION: 1. No acute intracranial abnormality. 2. Unchanged in size and morphology. Ventricular shunt unchanged. Tip projects in region of 3rd ventricle. Ventricles are decompressed. Dictated and Authenticated by: Rani Rubio MD. Ordering:AGUS Savage MD
--- NOTE | 2023-06-06 15:59 | DI.VRAD_ITS ---
PROCEDURE INFORMATION: Exam: CT Abdomen And Pelvis Without Contrast Exam date and time: 06/06/2023 1:44 PM Age: 52 years old Clinical indication: Device placement; Gi device; Nasogastric tube TECHNIQUE: Imaging protocol: Computed tomography of the abdomen and pelvis without contrast. COMPARISON: CR XR SHUNT SERIES 06/06/2023 1:36 PM FINDINGS: Tubes, catheters and devices: Tubing is seen in the anterior subcutaneous fat and then extends into the abdomen. This has the appearance of a ventriculoperitoneal shunt. No nasogastric tube identified Liver: Normal. No mass. Gallbladder and bile ducts: Cholecystectomy. Pancreas: Normal. No ductal dilation. Spleen: Normal. No splenomegaly. Adrenal glands: Normal. No mass. Kidneys and ureters: There is no evidence of renal or ureteral calcifications. Stomach and bowel: Unremarkable. No obstruction. No mucosal thickening. Appendix: No evidence of appendicitis. Intraperitoneal space: Unremarkable. No free air. No significant fluid collection. Vasculature: Unremarkable. No abdominal aortic aneurysm. Lymph nodes: Unremarkable. No enlarged lymph nodes. Urinary bladder: Unremarkable as visualized. Reproductive: Unremarkable as visualized. Bones/joints: Unremarkable. No acute fracture. Soft tissues: Unremarkable. IMPRESSION: No acute process Dictated and Authenticated by: Renetta León MD. Ordering:[facility] Val Savage MD
[2023-06-06 16:10] VITALS: BP 121/81; PULSE 71; RESP 16; TEMP 36.5; O2SAT 98
--- NOTE | 2023-06-07 07:44 | ED.FU.B_ITS ---
Date of service: 06/07/23 Time of Service: 07:45 Follow Up Plan: Received call from Dr. De Jesus from radiology saying that patient does have a discontinuing of his DIRECTOR OF SOFTWARE ENGINEERING shunt. I called and spoke with the patient and relayed these results to him, he is going to reach out to his neurosurgeons at [facility], and will return here or their ER if he has worsening pain or cannot get a hold of his neurosurgeon.
--- NOTE | 2023-06-07 07:47 | NUR.NOTE ---
Dr. Diaz requested that the images from this visit be sent to [facility]. DI called and will do this. Nursing Note:
== END 2023-06-06 16:10 | disposition home or self-care (01) ==
PROVIDERS: Emergency Provider Emergency Medicine; PCP Physician Assistant
DX: R10.31 Right lower quadrant pain (principal); I10 Essential (primary) hypertension; E78.5 Hyperlipidemia, unspecified; G40.909 Epilepsy, unspecified, not intractable, without status epilepticus; Z98.2 Presence of cerebrospinal fluid drainage device
CPT/HCPCS: 99284; 70360; 70450; 71045; 72050; 74018; 74176

== ENCOUNTER 2023-07-27 04:06 | Outpatient (CLI) | payer MEDICARE, MEDICAID, SELFPAY ==
[2023-07-27 18:39] LABS: PSA, Diagnostic 0.4 ng/mL (<=3.5)
[2023-07-31 10:06] LABS: Testosterone, Total 373 ng/dL (240-950)
== END 2023-07-27 04:07 | disposition home or self-care (01) ==
LOC: LBO 04:08
PROVIDERS: PCP Physician Assistant; Visit Provider Nurse Practitioner Gerontology
DX: N40.0 Benign prostatic hyperplasia without lower urinary tract symptoms
CPT/HCPCS: 36415; 84403; 84153

== ENCOUNTER → 2023-07-27 12:17 | Outpatient (CLI) | payer MEDICARE, MEDICAID, SELFPAY ==
--- NOTE | 2023-07-27 | DI.CT_ITS ---
Exam(s) CT CHEST/ABD/PEL W EXAM: CT CHEST/ABD/PEL W CLINICAL HISTORY: ABD PAIN, R10.9; S/P SBO, Z87.19; S/P EX LAP SMALL BOWEL RESECTION; NAUSEA TECHNIQUE: Imaging Protocol: Axial computed tomography images with coronal and sagittal reformatted images were created and reviewed CONTRAST MATERIAL: Intravenous: Omnipaque 350 contrast volume:100 mL Oral: Yes COMPARISON: CT CT ABDOMEN PELVIS W from 03/11/[address] ABDOMEN PELVIS WO from 06/06/2023 FINDINGS: CHEST: Tracheobronchial tree: Patent where visualized. Pulmonary parenchyma: There is a small right pleural effusion and subjacent atelectasis. No architec tural distortion. Calcified granuloma are present. Visualized thyroid gland: Unremarkable. Mediastinum and Sindi: No dominant adenopathy or fluid collection. The esophagus is unremarkable. Pleura: No left pleural effusion. No pneumothorax. Heart: The heart is not dilated. No coronary artery calcifications are seen. No pericardial effusion. Pulmonary arteries: Due to the timing of the bolus, opacification of the pulmonary arteries, particul hunter peripherally, is suboptimal for evaluation of pulmonary emboli. No large central pulmonary embo feng is seen. Aorta: Thoracic aorta non-dilated. No evidence of dissection. Lymph nodes: Within normal limits. Tubes, Catheters, and Lines: Tubing is seen in the right hemithorax and anterior subcutaneous soft ti ssues. Soft tissues: Unremarkable. Bones:Within normal limits for the patient's age. ABDOMEN: Liver: Normal density. No measurable mass. Portal, Superior Mesenteric, and Splenic Veins: Unremarkable. Gallbladder and Biliary Tract: Status post cholecystectomy. No biliary ductal dilatation. Pancreas: Normal density, no abnormal calcifications or inflammatory process. Spleen: Normal. Adrenals: No masses seen. Kidneys: Normal size, contour and axis. No radiodense stones or obstructive uropathy. No masses seen. Abdominal Aorta: Abdominal portion non-dilated. Mild atherosclerotic calcification is present. Bowel: There are anastomotic surgical changes in the small bowel in the right abdomen. There is no e vidence of bowel obstruction. The oral contrast extends beyond the anastomosis into the distal small bowel. There is no bowel wall thickening. No evidence of appendicitis. Peritoneal Cavity: There is infiltration in the mesentery. No focal fluid collection is seen to sugg est an abscess. There is a small amount of fluid seen in the mesenteric leaves. No free air. Lymph Nodes: Within normal limits. Bones: Within normal limits for the patient's age. Soft Tissues: There is a midline anterior abdominal wall incision. PELVIS: Bladder: Symmetric distention, no gross wall thickening. Reproductive Organs: Unremarkable as visualized. Lymph Nodes: Within normal limits. Bones: Within normal limits. IMPRESSION: 1. Postsurgical changes seen with an anastomosis in small bowel in the right abdomen. No evidence of bowel obstruction or bowel wall thickening. 2. Mild infiltration in the mesentery and a small amount of fluid seen within the mesenteric leaves. No focal fluid collection is seen to suggest an abscess. 3. Small right pleural effusion and right basilar atelectasis. 4. Unremarkable CT scan of the chest. RADIATION DOSE DELIVERED: 1,309.47mGy.cm Total DLP DATA REPOSITORY: All CT scans at this facility are submitted to the National Radiology Data Registry (NRDR) Dose Index Registry (DIR) with the [employer] (ACR). RADIATION OPTIMIZATION: All CT scans at this facility use at least one of these dose optimization te chniques: automated exposure control; mA and/or kV adjustment per patient size (includes targeted exa ms where dose is matched to clinical indication); or iterative reconstruction.
[2023-07-27] MEDS: Barium Sulfate 2% W/V-Berry Smoothie 450 ML BTL PO ×2 (12:37→12:38)
[2023-07-27] MEDS: Normal Saline - Diluent 50 ML VIAL IJ (14:57)
[2023-07-27] MEDS: Omnipaque 350 MG/ML 100 ML BTL IJ (14:58)
== END ==
PROVIDERS: PCP Physician Assistant; Visit Provider Nurse Practitioner Acute Care
DX: Z87.19 Personal history of other diseases of the digestive system (principal); R10.9 Unspecified abdominal pain; Z98.890 Other specified postprocedural states
CPT/HCPCS: 36415; 74177; 84403; 71260; 84153; J3490

== ENCOUNTER → 2023-08-03 08:20 | Outpatient (BNVA) | payer MEDICARE, MEDICAID, SELFPAY | PROVIDERS: PCP Physician Assistant; Visit Provider Nurse Practitioner Gerontology | DX: E29.1 Testicular hypofunction (principal); R39.89 Other symptoms and signs involving the genitourinary system | CPT/HCPCS: 99213 ==

== ENCOUNTER 2023-08-03 12:57 | Outpatient (REF) | payer MEDICARE, MEDICAID, SELFPAY ==
[2023-08-03 16:17] LABS: Abs Immature Grans 0.02 10^3/uL (0.0-0.06); Absolute Basophil Count 0.07 10^3/uL (0.0-0.2); Absolute Eosinophil Count 0.24 10^3/uL (0.0-0.7); Absolute Lymphocyte Count 3.75 10^3/uL (1.2-3.4); Absolute Monocyte Count 0.42 10^3/uL (0.1-0.8); Absolute Neutrophil Count 4.99 10^3/uL (1.2-6.7); Basophils % 0.7 %; Eosinophils % 2.5 %; HCT 47.7 % (40.0-50.0); HGB 15.9 g/dL (13.5-17.5); Immature Grans % 0.2 %; Lymphocytes % 39.5 %; MCH 29.6 pg (27.0-33.0); MCHC 33.3 % (32.0-36.0); MCV 89 fL (80-95); MPV 10.1 fL (8.0-11.0); Monocytes % 4.4 %; Neutrophils % 52.7 %; Platelet Count 213 10^3/uL (130-400); RBC 5.38 10^6/uL (4.36-5.78); RDW 13.4 % (11.8-14.1); RDW-SD 43.9 fL; WBC 9.49 10^3/uL (4.4-10.8)
[2023-08-03 16:57] LABS: Hemoglobin A1C 5.5 % (<5.7)
[2023-08-03 16:59] LABS: ALT 41 U/L (16-63); AST 26 U/L (15-37); Albumin 4.2 g/dL (3.4-5.0); Alkaline Phosphatase 124 U/L (46-116); Anion Gap 13.1 mmol/L (3-11); BUN 15 mg/dL (7-18); Bilirubin, Total 0.5 mg/dL (0.2-1.0); CO2 24.9 mmol/L (21.0-32.0); CREATININE 1.2 mg/dL (0.70-1.30); Calcium 9.3 mg/dL (8.5-10.1); Chloride 101 mmol/L (98-107); Cholesterol 196 mg/dL (<200); Estimated GFR 73.67 (mL/min/1.73m2); Glucose 139 mg/dL (74-106); HDL Cholesterol 35 mg/dL (40-60); Potassium 4.2 mmol/L (3.5-5.1); Sodium 139 mmol/L (136-145); TSH 2.85 uIU/Ml (0.36-3.74); Total Protein 7.7 g/dL (6.4-8.2); Triglyceride 731 mg/dL (<150)
[2023-08-03 17:16] LABS: LDL CHOLESTEROL 60 mg/dL (<100)
== END 2023-08-03 12:58 | disposition home or self-care (01) ==
LOC: NCHCN 12:57
PROVIDERS: PCP Physician Assistant; Visit Provider Physician Assistant
DX: E11.9 Type 2 diabetes mellitus without complications (principal); E05.90 Thyrotoxicosis, unspecified without thyrotoxic crisis or storm; D72.829 Elevated white blood cell count, unspecified
CPT/HCPCS: 80053; 80061; 83721; 83036; 84443; 85025

== ENCOUNTER → 2023-12-08 10:02 | Outpatient (BNVA) | payer MEDICARE, MEDICAID, SELFPAY | PROVIDERS: PCP Physician Assistant; Visit Provider Nurse Practitioner Adult Health | DX: G43.009 Migraine without aura, not intractable, without status migrainosus (principal); Z98.2 Presence of cerebrospinal fluid drainage device; Z86.69 Personal history of other diseases of the nervous system and sense organs | CPT/HCPCS: 99213 ==

== ENCOUNTER → 2024-02-01 08:27 | Outpatient (BNVA) | payer MEDICARE, MEDICAID, SELFPAY | PROVIDERS: PCP Physician Assistant; Visit Provider Nurse Practitioner Gerontology | DX: E29.1 Testicular hypofunction (principal); R39.89 Other symptoms and signs involving the genitourinary system | CPT/HCPCS: 99213 ==

== ENCOUNTER 2024-02-09 02:58 | Outpatient (CLI) | payer MEDICARE, MEDICAID, SELFPAY ==
[2024-02-12 16:31] LABS: Testosterone, Total 641 ng/dL (240-950)
== END 2024-02-09 02:59 | disposition home or self-care (01) ==
LOC: LBO 02:59
PROVIDERS: PCP Physician Assistant; Visit Provider Nurse Practitioner Gerontology
DX: E29.1 Testicular hypofunction (principal)
CPT/HCPCS: 36415; 84403

== ENCOUNTER 2024-02-29 15:34 | Outpatient (REF) | payer MEDICARE, MEDICAID, SELFPAY ==
--- OUTSIDE RECORDS SUMMARY | 2024-02-29 15:38 | XMS_ITS | Encounter Summary ---
Author Organization [facility] Address [address] [place] [address] Care Team Providers Care Pulp House Supervisor Name Role Phone Irma Gates ANDREW Primary Care Provider [phone] Encounter Details Date Type Department Care Team (Late st Contact Info) Description 11/11/2021 Lab Requisition [facility] Pathology & Laboratory Medicine - [facility] [address] [place] [address] Kianna Nowak MD [address] [place] [address] [place] [address] Encounter for other general examination Social History Tobacco Use Types Packs/Day Years Used Date Smoking Tobacco: Never Assessed Interpersonal Safety Answer Date Record ed Physically Hurt Never 09/26/2019 Verbally Threaten Not on file 09/26/2019 Sex and Gender Information Value Date Recorded Sex Assigned at Not on file Legal Sex Male 17:26 EST Gender Identity Not on file Sexual Orientation Not on file documented as of this encounter Plan of Treatment Not on file documented as of this encounter Procedures Procedure Name Priority Date/Time Associated Diagnosis Comments SURGICAL PATHOLOGY Today 11/11/2021 8: 30 EDT Encounter for other general examination documented in this encounter Results * SURGICAL PATHOLOGY (11/11/2021 8:30 EDT) Note to Patient The following pathology results have been interpreted by your pathologist and may be available to you before your health provider has had the opportunity to review them. Please allow time for your provider to receive these results and explore management options, if applicable. 11/14/2021 9:52 [facility] Final Diagnosis A. COLON, ASCENDING, POLYPS, BIOPSY: - Tubular adenomas B. COLON, TRANSVERSE, POLYP, BIOPSY: - Tubular adenoma(s) 11/14/2021 9:52 [facility] Attestation There was significant resident/fellow involvement in the diagnostic evaluation of this case. By the signature below, the attending physician certifies that they have personally conducted a gross and/or microscopic examination of the described specimens and rendered or confirmed the above diagnosis. 11/14/2021 9:52 [facility] at 0952 Clinical History Hx of polyps 11/14/2021 9:52 [facility] Gross Description A. Received in formalin labelled with proper patient identification (initials white, J) and ascending colon polyps x5 are 7 fragments of thompson soft tissue (ranging from 0.2 cm to 0.4 cm in greatest dimension). The specimen is entirely submitted in A1-A2. B. Received in formalin labelled with proper patient identification (initials M, J) and transverse colon polyp are 3 fragments of thompson soft tissue (ranging from 0.2 cm to 0.4 cm in greatest dimension). The specimen is entirely submitted in B1. MARVA GIBBS(ASCP) 11/12/2021 8:22 11/14/2021 9:52 [facility] Resident/Anthony w: Leighton Gonzalez MD 11/14/2021 9:52 [facility] Performing Lab [facility] 11/14/2021 9:52 [facility] Scanned Images 11/14/2021 9:52 [facility] Tissue POLYP OF COLON / Unknown 11/11/2021 8:30 EDT 11/11/2021 17:57 EDT Tissue specimen (specimen) POLYP OF COLON / Unknown 11/11/2021 8:30 EDT 11/11/2021 17:57 EDT us Kianna Nowak MD PATHOLOGY ORDERABLES Fin al Result [facility] [address] [place] [address] documented in this encounter Visit Diagnoses Diagnosis Encounter for other general examination documented in this encounter Care Teams Pulp House Supervisor Relationship Specialty Start Date End Date Irma Gates FNP [place] [place] [address] PCP - General 10/24/21 documented as of this encounter
--- OUTSIDE RECORDS SUMMARY | 2024-02-29 15:38 | XMS_ITS | Encounter Summary ---
Author Organization [facility] Address [address] [place] [address] Care Team Providers Care Drum Reel Cutter Name Role Phone Irma Gates ANDREW Primary Care Provider [phone] Encounter Details Date Type Department Care Team (Late st Contact Info) Description 05/16/2022 Lab Requisition [facility] Pathology & Laboratory Medicine - [place] [address] [place] [address] Outr Resulting Lab, Provider Social History Tobacco Use Types Packs/Day Years [...] Procedure Name Priority Date/Time Associated Diagnosis Comments [facility] Today 05/15/2022 11:45 EDT COVID-19 TESTING Routine 05/15/2022 11:4 5 EDT documented in this encounter Results * COVID-19 TEST [facility] PCR (05/15/2022 11:45 EDT) Swab ENTIRE NASOPHARYNX / Unknown 05/15/2022 11:45 EDT 05/16/2022 18:22 EDT us Provider Outr Resulting Lab MICROBIOLOGY - GENER AL ORDERABLES Final Result Performing Organization Address [facility] de Phone Number [facility] [address] [place] [address] * COVID-19 TESTING (05/15/2022 11:45 EDT) COVID-19 rt-PCR Result Negative Negative 05/17/2022 1:49 EDT [facility] Comment: This test has not been FDA cleared or approved. This test has been authorized by FDA under an EUA for use by authorized laboratories. This test has been authorized only for detection of nucleic acid from 2019-nCoV, not for any other viruses or pathogens. This test is only authorized for the duration of the declaration that circumstances exist justifying the authorization of emergency use of in vitro diagnostic tests for detection and/or diagnosis of 2019-nCoV under section 564(b)(1) of Act, 21 U.S.C ?? 360bbb-3(b) (1), unless the authorization is terminated or revoked sooner. Negative results do not preclude 2019-nCoV infection and should not be used as the sole basis for treatment or other patient management decisions. Negative results must be combined with clinical observations, patient history, and epidemiological information. Performed on the [employer] [place] Fusion instrument Performing Lab [facility] [facility] 05/17/2022 1:49 EDT [facility] Swab ENTIRE NASOPHARYNX / Unknown 05/15/2022 11:45 EDT 05/16/2022 18:22 EDT us Provider Outr Resulting Lab MICROBIOLOGY - GENER AL ORDERABLES Final Result Performing Organization Address City/[facility]/ZIP Co de Phone Number [facility] [address] [place] [address] documented in this encounter Visit Diagnoses Not on filedocumented in this encounter Care Teams Drum Reel Cutter Relationship Specialty Start Date End Date Irma Gates [place] [address] PCP - General 10/24/21 documented as of this encounter
--- OUTSIDE RECORDS SUMMARY | 2024-02-29 15:38 | XMS_ITS | Encounter Summary ---
Author Organization [facility] Address [address] [place] [address] Care Team Providers Care Medical Device Sales Consultant Name Role Phone Cl Beltran MD Primary Care Provider [phone] Irma Gates Primary Care Provider [phone] Encounter Details Date Type Department Care Team (Late st Contact Info) Description 12/20/2019 Lab Requisition [facility] Pathology & Laboratory Medicine - [address] [address] Outr Resulting Lab, Provider Social History Tobacco [...] Procedure Name Priority Date/Time Associated Diagnosis Comments PSA TOTAL, DIAGNOSTIC Routine 12/20/2019 9:15 EDT documented in this encounter Results * PSA TOTAL, DIAGNOSTIC (12/20/2019 9:15 EDT) PSA 0.3 0.0 - 2.5 ng/mL 12/20/2019 19:58 EDT [facility] Blood VENOUS BLOOD / Unknown 12/20/2019 9:15 EDT 12/20/2019 17:03 EDT Narrative [facility] - 12/20/2019 19:58 EDT NOTE: Serum PSA concentration should not be interpreted as absolute evidence for the presence or absence of malignant disease. Assayed on Siemens ADVIA Osprey Dataaur XPT using chemiluminescent technology.??Values obtained by using different assay methods cannot be used interchangeably. us Provider Outr Resulting Lab CHEMISTRY & BLOOD GA S ORDERABLES Final Result [facility] [address] [place] [address] documented in this encounter Visit Diagnoses Not on filedocumented in this encounter Care Teams Medical Device Sales Consultant Relationship Specialty Start Date End Date Cl Beltran MD PCP - General 01/02/15 10/23/21 Irma Gates [place] [address] [place] [address] PCP - General 10/24/21 documented as of this encounter
--- OUTSIDE RECORDS SUMMARY | 2024-02-29 15:38 | XMS_ITS | Encounter Summary ---
Author Organization [facility] Address [address] [place] [address] Care Team Providers Care Armament Mechanic Name Role Phone Irma Gates ANDREW Primary Care Provider [phone] Encounter Details Date Type Department Care Team (Late st Contact Info) Description 01/10/2022 Lab Requisition [facility] Pathology & Laboratory Medicine - [facility] [address] [place] [address] Outr Resulting Lab, Provider Social History Tobacco [...] Associated Diagnosis Comments PSA TOTAL, DIAGNOSTIC Routine 01/10/2022 9:04 EST documented in this encounter Results * PSA TOTAL, DIAGNOSTIC (01/10/2022 9:04 EST) PSA 0.5 <=2.5 ng/mL 01/10/2022 20:44 EST [facility] Blood VENOUS BLOOD / Unknown 01/10/2022 9:04 EST 01/10/2022 18:34 EST Narrative [facility] - 01/10/2022 20:44 EST NOTE: Serum PSA concentration should not be interpreted as absolute evidence for the presence or absence of malignant disease. Assayed on Siemens ADVIA Adwantedaur XPT using chemiluminescent technology.??Values obtained by using different assay methods cannot be used interchangeably. us Provider Outr Resulting Lab CHEMISTRY & BLOOD GA S ORDERABLES Final Result [facility] [address] [place] [address] documented in this encounter Visit Diagnoses Not on filedocumented in this encounter Care Teams Armament Mechanic Relationship Specialty Start Date End Date Irma Gates FNP [address] [place] [address] PCP - General 10/24/21 documented as of this encounter
--- OUTSIDE RECORDS SUMMARY | 2024-02-29 15:38 | XMS_ITS | Encounter Summary ---
Author Organization [facility] Address [address] [place] [address] Care Team Providers Care Media Developer Name Role Phone Cl Beltran MD Primary Care Provider Irma Gates Primary Care Provider [phone] Encounter Details Date Type Department Care Team (Late st Contact Info) Description 03/06/2020 Lab Requisition [facility] Pathology & Laboratory Medicine - [address] [id number] Outr Resulting Lab, Provider Social History Tobacco [...] Associated Diagnosis Comments PSA TOTAL, DIAGNOSTIC Routine 03/06/2020 9:50 EST documented in this encounter Results * PSA TOTAL, DIAGNOSTIC (03/06/2020 9:50 EST) PSA 0.3 0.0 - 2.5 ng/mL 03/06/2020 17:51 EST [facility] Blood VENOUS BLOOD / Unknown 03/06/2020 9:50 EST 03/06/2020 15:59 EST Narrative [facility] - 03/06/2020 17:51 EST NOTE: Serum PSA concentration should not be interpreted as absolute evidence for the presence or absence of malignant disease. Assayed on Siemens LIKECHARITYIA ClearFitaur XPT using chemiluminescent technology.??Values obtained by using different assay methods cannot be used interchangeably. us Provider Outr Resulting Lab CHEMISTRY & BLOOD GA S ORDERABLES Final Result [facility] [address] [place] [address] documented in this encounter Visit Diagnoses Not on filedocumented in this encounter Care Teams Media Developer Relationship Specialty Start Date End Date Cl Beltran MD PCP - General 01/02/15 10/23/21 Irma Gates [place] [address] [address] [place] [address] PCP - General 10/24/21 documented as of this encounter
--- OUTSIDE RECORDS SUMMARY | 2024-02-29 15:38 | XMS_ITS | Encounter Summary ---
Author Organization [facility] Address [address] [place] [address] Care Team Providers Care Superintendent Communications Name Role Phone Cl Beltran MD Primary Care Provider [phone] Irma Gates Primary Care Provider Encounter Details Date Type Department Care Team (Late st Contact Info) Description 10/07/2019 Lab Requisition [facility] Pathology & Laboratory Medicine - [address] [address] Outr Resulting Lab, Provider Social History Tobacco [...] Procedure Name Priority Date/Time Associated Diagnosis Comments DO NOT ORDER STANDALONE - BROAD COVID TEST Today 10/07/2019 9:07 EDT COVID-19 TESTING Routine 10/07/2019 9:07 EDT documented in this encounter Results * DO NOT ORDER STANDALONE - BROAD COVID TEST (10/07/2019 9:07 EDT) [facility] COVID-19 rt-PCR Result NEGATIVE Negative 10/08/2019 16:18 EDT [facility] Comment: 2019-novel Coronavirus (2019-nCoV) not detected by the qRT-PCR assay. Consider testing for other respiratory viruses or re-collecting for 2019-nCoV testing. Note: Optimum timing for peak viral levels during infections caused by 2019-nCoV have not been determined. Collection of multiple specimens from the same patient may be necessary to detect the virus. Limitations Positive results are indicative of active infection with SARS-CoV-2 but do not rule out bacterial infection or co-infection with other viruses. The agent detected may not be the definite cause of disease. In addition, detection of viral RNA may not indicate the presence of infectious virus or that SARS-CoV-2 is the causative agent for clinical symptoms. Negative results do not preclude SARS-CoV-2 infection and should not be used as the sole basis for patient management decisions. Negative results must be combined with clinical observations, patient history, and epidemiological information. False negative results may also occur if amplification inhibitors are present in the specimen or if inadequate numbers of organisms are present in the specimen. Optimum specimen types and timing for peak viral levels during infections caused by SARS-CoV-2 have not been fully determined. Collection of multiple specimens (types and time points) from the same patient may be necessary to detect the virus. The test was validated for use with upper respiratory specimens obtained via nasopharyngeal or oropharyngeal swabs in VTM, UTM, M4, M5, M6, saline, and MTM media. The performance of this test has not been established for other specimens. Specimens collected using other FDA recommended Specimen Collection Materials listed in the FDA COVID-19 Diagnostic Technologies communication (May 19, 2019) are processed with the caveat that they were not all validated for use with this test and the result must be interpreted in this context. Furthermore, a false negative results may occur if a specimen is improperly collected, transported or handled. If the virus mutates in the RT-PCR target region, SARS-CoV-2 may not be detected or may be detected less predictably. Inhibitors or other types of interference may produce a false negative result. An interference study evaluating the effect of common cold medications was not performed. This test is not FDA-cleared but its performance characteristics were established by our CLIA-certified, CAP-accredited, high complexity laboratory in accordance with CLIA regulations, College of [employer] Pathologists (CAP) guidelines (May 12, 2019), and FDA guidance (Apr 23, 2019). This test is only for use under the Food and Drug Administration's Emergency Use Authorization. Swab ENTIRE NASOPHARYNX / Unknown 10/07/2019 9:07 EDT 10/07/2019 16:05 EDT us Provider Outr Resulting Lab MICROBIOLOGY - GENER AL ORDERABLES Final Result [facility] [place], [place] * COVID-19 TESTING (10/07/2019 9:07 EDT) COVID-19 rt-PCR Result NEGATIVE Negative 10/08/2019 17:24 EDT [facility] Comment: 2019-novel Coronavirus (2019-nCoV) not detected by the qRT-PCR assay. Consider testing for other respiratory viruses or re-collecting for 2019-nCoV testing. Note: Optimum timing for peak viral levels during infections caused by 2019-nCoV have not been determined. Collection of multiple specimens from the same patient may be necessary to detect the virus. Limitations Positive results are indicative of active infection with SARS-CoV-2 but do not rule out bacterial infection or co-infection with other viruses. The agent detected may not be the definite cause of disease. In addition, detection of viral RNA may not indicate the presence of infectious virus or that SARS-CoV-2 is the causative agent for clinical symptoms. Negative results do not preclude SARS-CoV-2 infection and should not be used as the sole basis for patient management decisions. Negative results must be combined with clinical observations, patient history, and epidemiological information. False negative results may also occur if amplification inhibitors are present in the specimen or if inadequate numbers of organisms are present in the specimen. Optimum specimen types and timing for peak viral levels during infections caused by SARS-CoV-2 have not been fully determined. Collection of multiple specimens (types and time points) from the same patient may be necessary to detect the virus. The test was validated for use with upper respiratory specimens obtained via nasopharyngeal or oropharyngeal swabs in VTM, UTM, M4, M5, M6, saline, and MTM media. The performance of this test has not been established for other specimens. Specimens collected using other FDA recommended Specimen Collection Materials listed in the FDA COVID-19 Diagnostic [employer] communication (May 19, 2019) are processed with the caveat that they were not all validated for use with this test and the result must be interpreted in this context. Furthermore, a false negative results may occur if a specimen is improperly collected, transported or handled. If the virus mutates in the RT-PCR target region, SARS-CoV-2 may not be detected or may be detected less predictably. Inhibitors or other types of interference may produce a false negative result. An interference study evaluating the effect of common cold medications was not performed. This test is not FDA-cleared but its performance characteristics were established by our CLIA-certified, CAP-accredited, high complexity laboratory in accordance with CLIA regulations, College of [employer] Pathologists (CAP) guidelines (May 12, 2019), and FDA guidance (Apr 23, 2019). This test is only for use under the Food and Drug Administration's Emergency Use Authorization. Performing Lab [facility] 10/08/2019 17:24 EDT [facility] Swab 10/07/2019 9:07 EDT 10/07/2019 16:05 EDT us Provider Outr Resulting Lab MICROBIOLOGY - GENER AL ORDERABLES Final Result [facility] [address] [place] [address] [facility] [place] documented in this encounter Visit Diagnoses Not on filedocumented in this encounter Care Teams Superintendent Communications Relationship Specialty Start Date End Date Cl Beltran MD PCP - General 01/02/15 10/23/21 Irma Gates FNP [address] [place] [address] [place] [place] [address] PCP - General 10/24/21 documented as of this encounter
--- OUTSIDE RECORDS SUMMARY | 2024-02-29 15:38 | XMS_ITS | Referral Summary ---
Author Organization [facility] Address [address] [place] [address] Care Team Providers Care Paramedical Aide Name Role Phone Irma aGtes [facility] Primary Care Provider [phone] Social History Tobacco Use Types Packs/Day Years Used Date Smoking Tobacco: Never Assessed Interpersonal Safety Answer Date Record ed Physically Hurt Never 09/26/2019 Verbally Threaten Not on file 09/26/2019 Sex and Gender Information Value Date Recorded Sex Assigned at Not on file Legal Sex Male 17:26 EST Gender Identity Not on file Sexual Orientation Not on file Plan of Treatment Not on file Insurance [place] Care Teams Paramedical Aide Relationship Specialty Start Date End Date Irma Gates [place] [address] [address] [place] [address] PCP - General 10/24/21
--- OUTSIDE RECORDS SUMMARY | 2024-02-29 15:38 | XMS_ITS | Encounter Summary ---
Author Organization [facility] Address [address] [place] [address] Care Team Providers Care Supervisor Grain And Yeast Plants Name Role Phone Irma Gates ANDREW Primary Care Provider [phone] Encounter Details Date Type Department Care Team (Late st Contact Info) Description 07/24/2022 Lab Requisition [facility] Pathology & Laboratory Medicine - [facility] [address] [place] [address] Outr Resulting Lab, Provider Social History Tobacco [...] Associated Diagnosis Comments PSA TOTAL, DIAGNOSTIC Routine 07/24/2022 8:42 EDT documented in this encounter Results * PSA TOTAL, DIAGNOSTIC (07/24/2022 8:42 EDT) PSA 0.3 <=2.5 ng/mL 07/24/2022 19:35 EDT [facility] Blood VENOUS BLOOD / Unknown 07/24/2022 8:42 EDT 07/24/2022 18:34 EDT Narrative [facility] - 07/24/2022 19:35 EDT NOTE: Serum PSA concentration should not be interpreted as absolute evidence for the presence or absence of malignant disease. Assayed on Siemens ADVIA Voice [employer] TVaur XPT using chemiluminescent technology.??Values obtained by using different assay methods cannot be used interchangeably. us Provider Outr Resulting Lab CHEMISTRY & BLOOD GA S ORDERABLES Final Result [facility] [address] [place] [address] documented in this encounter Visit Diagnoses Not on filedocumented in this encounter Care Teams Supervisor Grain And Yeast Plants Relationship Specialty Start Date End Date Irma Gates [place] [address] [address] [place] [address] PCP - General 10/24/21 documented as of this encounter
--- OUTSIDE RECORDS SUMMARY | 2024-02-29 15:38 | XMS_ITS | Clinical Summary ---
Author Organization [facility] Address [address] [place] [address] Care Team Providers Care Seasonal Recruiter Name Role Phone Irma Gates DESIGN CENTER CONSULTANT Primary Care Provider [phone] Social History Tobacco Use Types Packs/Day Years Used Date Smoking Tobacco: Never Assessed Interpersonal Safety Answer Date Record ed Physically Hurt Never 09/26/2019 Verbally Threaten Not on file 09/26/2019 Sex and Gender Information Value Date Recorded Sex Assigned at Not on file Legal Sex Male 17:26 EST Gender Identity Not on file Sexual Orientation Not on file Plan of Treatment Health Maintenance Due Date Last Done Comments Hepatitis C Screen 1970 Hepatitis B Vaccine (1 of 3 - 19+ 3-dose series) 11/27 COVID-19 Vaccine ( season) 2023 Insurance [place]ID [place] Care Teams Seasonal Recruiter Relationship Specialty Start Date End Date Irma Gates FNP [address] [facility], [place] [id number] PCP - General 10/24/21
--- OUTSIDE RECORDS SUMMARY | 2024-02-29 15:38 | XMS_ITS | Encounter Summary ---
Author Organization [facility] Address [address] [place] [address] Care Team Providers Care Project Manager Finance Name Role Phone Irma Gates ANDREW Primary Care Provider [phone] Encounter Details Date Type Department Care Team (Late st Contact Info) Description 05/07/2022 Lab Requisition [facility] Pathology & Laboratory Medicine - [facility] [address] [place] [address] Delgado Eastman MD [address] [place] [id number] Encounter for other general examination Social History [...] Date/Time Associated Diagnosis Comments SURGICAL PATHOLOGY Today 05/06/2022 13 :49 EDT Encounter for other general examination documented in this encounter Results * SURGICAL PATHOLOGY (05/06/2022 13:49 EDT) Note to Patient The following pathology results have been interpreted by your pathologist and may be available to you before your health provider has had the opportunity to review them. Please allow time for your provider to receive these results and explore management options, if applicable. 05/08/2022 12:48 [facility] Final Diagnosis A. COLON, ASCENDING, POLYP, BIOPSY: - Tubular adenoma. B. COLON, TRANSVERSE, POLYP, BIOPSY: - Tubular adenoma. C. COLON, TRANSVERSE, POLYP, BIOPSY: - Sessile serrated adenoma. D. COLON, DESCENDING, POLYP, BIOPSY: - Tubular adenoma. E. COLON, SPLENIC FLEXURE, POLYP, BIOPSY: - Markedly cauterized/crushe d colonic mucosa, favor tubular adenoma. 05/08/2022 12:48 [facility] Attestation By the signature below, the attending physician certifies that they have 1) personally conducted a gross and/or microscopic examination of the described specimen(s), and/or personally interpreted the results of laboratory testing of the described specimen(s), and 2) personally rendered or confirmed the above diagnosis. 05/08/2022 12:48 [facility] at 1248 Clinical History Colonoscopy screening; history of colon polyps; colon polyps 05/08/2022 12:48 [facility] Gross Description A. Received in formalin labelled with proper patient identification (initials M, J) and 1. Ascending colon polyp x1 is a thompson tissue (0.4 x 0.2 x 0.2 cm). Entirely submitted in A1. B. Received in formalin labelled with proper patient identification (initials M, J) and 2. Transverse colon polyp x1 is a thompson-brown polypoid tissue (1.2 x 0.5 x 0.3 cm). The tissue is serially sectioned and entirely submitted in B1 and B2. C. Received in formalin labelled with proper patient identification (initials M, J) and 3. Transverse colon polyp x1 are 2 thompson-pink tissue fragments (0.4 x 0.3 x 0.1 cm and 0.4 x 0.3 x 0.3 cm). Entirely submitted in C1. D. Received in formalin labelled with proper patient identification (initials M, J) and 4. Descending colon polyp x1 are 2 thompson-brown tissue fragments (0.8 x 0.5 x 0.2 cm in aggregate). The thicker tissue is bisected and the specimen is entirely submitted in D1. E. Received in formalin labelled with proper patient identification (initials M, J) and 5. Splenic flexure polyp x1 is a thompson-pink tissue (0.4 x 0.2 x 0.2 cm). Entirely submitted in E1. MARVA TRIVEDI(ASCP) 05/07/2022 9:36 05/08/2022 12:[address] [facility] Performing Lab [facility] 05/08/2022 12:[address] [facility] Scanned Images 05/08/2022 12:[address] [facility] Tissue POLYP OF SPLENIC FLEXURE OF COLON / Unknown 05/06/2022 13:49 EDT 05/07/2022 8:46 EDT Tissue specimen (specimen) TRANSVERSE COLON STRUCTURE / Unknown 05/06/2022 13:49 EDT 05/07/2022 8:46 EDT Tissue specimen (specimen) TRANSVERSE COLON STRUCTURE / Unknown 05/06/2022 13:49 EDT 05/07/2022 8:46 EDT Tissue specimen (specimen) DESCENDING COLON STRUCTURE / Unknown 05/06/2022 13:49 EDT 05/07/2022 8:46 EDT Tissue specimen (specimen) POLYP OF SPLENIC FLEXURE OF COLON / Unknown 05/06/2022 13:49 EDT 05/07/2022 8:46 EDT us Delgado Eastman MD PATHOLOGY ORDERABLES F inal Result [facility] [address] [place] [address] documented in this encounter Visit Diagnoses Diagnosis Encounter for other general examination documented in this encounter Care Teams Project Manager Finance Relationship Specialty Start Date End Date Irma Gates FNP [place] [place] [address] PCP - General 10/24/21 documented as of this encounter
--- OUTSIDE RECORDS SUMMARY | 2024-02-29 15:38 | XMS_ITS | Encounter Summary ---
Author Organization [facility] Address [address] [place] [address] Care Team Providers Care Leg Man Name Role Phone Irma Gates ANDREW Primary Care Provider [phone] Encounter Details Date Type Department Care Team (Late st Contact Info) Description 07/27/2023 Lab Requisition [facility] Pathology & Laboratory Medicine - [facility] [address] [place] [address] Outr Resulting Lab, Provider Social History Tobacco [...] Associated Diagnosis Comments PSA TOTAL, DIAGNOSTIC Routine 07/27/2023 8:35 EDT documented in this encounter Results * PSA TOTAL, DIAGNOSTIC (07/27/2023 8:35 EDT) PSA 0.4 <=3.5 ng/mL 07/27/2023 18:34 EDT [facility] Blood VENOUS BLOOD / Unknown 07/27/2023 8:35 EDT 07/27/2023 16:59 EDT Narrative [facility] - 07/27/2023 18:34 EDT NOTE: Serum PSA concentration should not be interpreted as absolute evidence for the presence or absence of malignant disease. Assayed on Siemens ADVIA INRFOODaur XPT using chemiluminescent technology.??Values obtained by using different assay methods cannot be used interchangeably. us Provider Outr Resulting Lab CHEMISTRY & BLOOD GA S ORDERABLES Final Result [facility] [address] [place], [place] [id number] documented in this encounter Visit Diagnoses Not on filedocumented in this encounter Care Teams Leg Man Relationship Specialty Start Date End Date Irma Gates [place] [address] [place] [address] PCP - General 10/24/21 documented as of this encounter
--- OUTSIDE RECORDS SUMMARY | 2024-02-29 15:38 | XMS_ITS | Encounter Summary ---
Author Organization [facility] Address [address] [place] [address] Care Team Providers Care Early Childhood Educator Aide Name Role Phone Irma Gates ANDREW Primary Care Provider [phone] Encounter Details Date Type Department Care Team (Late st Contact Info) Description 01/10/2022 Lab Requisition [facility] Pathology & Laboratory Medicine - [facility] [address] [place] [address] Outr Resulting Lab, Provider Social History Tobacco [...] Procedure Name Priority Date/Time Associated Diagnosis Comments T3 FREE Routine 01/10/2022 9:04 EST HOMOCYSTEINE Routine 01/10/2022 9:04 EST documented in this encounter Results * T3 FREE (01/10/2022 9:04 EST) T3, Free 4.9 2.8 - 5.3 pg/mL 01/10/2022 19:45 EST [facility] Blood VENOUS BLOOD / Unknown 01/10/2022 9:04 EST 01/10/2022 18:34 EST Provider Outr Resulting Lab CHEMISTRY & BLOOD GA S ORDERABLES Final Result Performing Organization Address [facility] de Phone Number [facility] [address] [place] [address] * HOMOCYSTEINE (01/10/2022 9:04 EST) Homocysteine 12.9 5.0 - 13.9 umol/L 01/13/2022 9:49 EST [facility] Blood VENOUS BLOOD / Unknown 01/10/2022 9:04 EST 01/10/2022 18:43 EST Narrative [facility] - 01/13/2022 9:49 EST Reference range may not apply to non-fasting samples. ??It is not recommended that EDTA plasma and serum from the same patient be used interchangeably. ??Serum concentrations have been observed to be up to 10% higher than EDTA plasma. Reference range may not apply to serum results. us Provider Outr Resulting Lab CHEMISTRY & BLOOD GA S ORDERABLES Final Result Performing Organization Address City/[facility] Co de Phone Number [facility] [address] [place] [address] documented in this encounter Visit Diagnoses Not on filedocumented in this encounter Care Teams Early Childhood Educator Aide Relationship Specialty Start Date End Date Irma Gates F[place] [address] PCP - General 10/24/21 documented as of this encounter
--- OUTSIDE RECORDS SUMMARY | 2024-02-29 15:38 | XMS_ITS | Encounter Summary ---
Author Organization [facility] Address [address] [place] [address] Care Team Providers Care Plate Grinder Name Role Phone Cl Beltran MD Primary Care Provider [phone] Irma Gates Primary Care Provider [phone] Encounter Details Date Type Department Care Team (Late st Contact Info) Description 10/26/2019 Lab Requisition [facility] Pathology & Laboratory Medicine - [address] [address] Outr Resulting Lab, Provider Social History Tobacco [...] Priority Date/Time Associated Diagnosis Comments ZZCOVID-19 TEST [facility] PCR Today 10/26/2019 21:05 EDT COVID-19 TESTING Routine 10/26/2019 21:0 5 EDT documented in this encounter Results * COVID-19 TEST [facility] PCR (10/26/2019 21:05 EDT) Swab ENTIRE NASOPHARYNX / Unknown 10/26/2019 21:05 EDT 10/27/2019 8:56 EDT us Provider Outr Resulting Lab MICROBIOLOGY - GENER AL ORDERABLES Final Result Performing Organization Address City/[facility] Co de Phone Number [facility] [address] [place] [address] * COVID-19 TESTING (10/26/2019 21:05 EDT) COVID-19 rt-PCR Result Negative Negative 10/27/2019 12:47 EDT [facility] Comment: This test has not [...] history, and epidemiological information. Performed on the Symetisher Fusion instrument Performing Lab Sharon [facility] 10/27/2019 12:47 EDT [facility] Swab 10/26/2019 21:0 5 EDT 10/27/2019 8:56 EDT us Provider Outr Resulting Lab MICROBIOLOGY - GENER AL ORDERABLES Final Result [facility] [address] [place] [address] documented in this encounter Visit Diagnoses Not on filedocumented in this encounter Care Teams Plate Grinder Relationship Specialty Start Date End Date Cl Beltran MD PCP - General 01/02/15 10/23/21 Irma Gates FNP [facility] [place] [address] [address] PCP - General 10/24/21 documented as of this encounter
--- OUTSIDE RECORDS SUMMARY | 2024-02-29 15:39 | XMS_ITS | Encounter Summary ---
[place] [address] Care Team Providers Care Residential Air Sealing Technician Name Role Phone Peter Lebron Primary Care Provider [phone] Reason for Referral * Psychiatric (Routine) - Closed Specialty Diagnoses / Procedures Referred By Contac t Referred To Contact Psychiatry Diagnoses Hydrocephalus, congenital Procedures PRO NEUROBEHAVIORAL STATUS EXAM PHYS/QHP 1ST HR PRO NEUROPSYCHOLOGICAL TEST EVAL PHYS/QHP 1ST HOUR PRO NEUROPSYCHOLOGICAL TEST EVAL PHYS/QHP EA ADDL HR TC PSYCL/NRPSYCL LAW LIBRARIAN 2+ TEST 1ST 30 MIN TC PSYCL/NRPSYCL LAW LIBRARIAN 2+ TEST EA ADDL 30 MIN Rhoda Jimenez MD [facility] [place] [address] [facility] Psychiat[facility] [address] [place] [address] Referral ID Status Reason Start Date Expiration Date V isits Requested Visits Authorized [id number] Closed Consult, Test & Treat 11/17/2023 11/16/2024 1 8 Encounter Details Date Type Department Care Team (Late st Contact Info) Description 11/17/2023 [place] [address] Beryl Horn RN Social History Tobacco Use Types Packs/Day Years Used Date Smoking Tobacco: Never Smokeless Tobacco: Never Alcohol Use Standard Drinks/Week Comments No 0 (1 standard drink = 0.6 oz pur e alcohol) [facility] Utilities Answer Date Recorded In the past 12 months has th e electric, gas, oil, or water company threatened to shut off services in your home? No 09/24/2023 Hunger Vital Sign Answer Date Recorded Within the past 12 months, y ou worried that your food would run out before you got the money to buy more. Never true 09/24/19 24 Within the past 12 months, t he food you bought just didn't last and you didn't have money to get more. Never true 09/24/2023 PRAPARE - Transportation Answer Date Re corded In the past 12 months, has l ack of transportation kept you from medical appointments or from getting medications? No 02/2023 In the past 12 months, has l ack of transportation kept you from meetings, work, or from getting things needed for daily living? No 09/24/2023 Housing Stability Vital Sign Answer Judah e Recorded In the last 12 months, was t here a time when you were not able to pay the mortgage or rent on time? No 07/03/2023 In the last 12 months, how many places have you lived? 1 07/03/2023 In the last 12 months, was t here a time when you did not have a steady place to sleep or slept in a longterm (including now)? No 07/03/2023 Housing Stability Vital Sign Answer Judah e Recorded In the last 12 months, was t here a time when you were not able to pay the mortgage or rent on time? No 09/24/2023 In the past 12 months, how m any times have you moved where you were living? 0 09/24/2023 At any time in the past 12 m [facility], were you homeless or living in a longterm (including now)? No 09/24/2023 IPV Inpatient Questions Answer Date Recorded Does Anyone Try to Keep You From Having Contact with Others or Doing Things Outside Your Home? no 09/24/2023 Feels Threatened by Someone no 02/2023 Feels Unsafe at Home or Work/School no 09/24/2023 Physical Signs of Abuse Present no 09/24/2023 Sex and Gender Information Value Date Recorded Sex Assigned at Male 10/11/2020 1:38 PM EDT Gender Identity Male 01/18/2020 8:12 PM EST Sexual Orientation Straight 10/11/2020 1: 38 PM EDT documented as of this encounter Miscellaneous Notes * Telephone Encounter - Beryl Horn RN - 11/17/2023 11:55 AM EDT Spoke to Ever's mother Marivel who would like a referral to neuropsych to address Ever's personality changes since his surgeries. She would also like to discuss the differences between the [facility] report and Dr. Jimenez's interpretation of the report during the 11/11 visit. I explained that the difference is that Dr. Jimenez put the report in layman's terms. She is still concerned that something may have been missed. documented in this encounter Plan of Treatment Scheduled Referrals Name Type Priority Associated Diagnoses Order Schedule Referral to Neuropsychology Outpatient Referral Routine Hydrocephalus, congenital Ordered: 11/17/2023 documented as of this encounter Visit Diagnoses Diagnosis Hydrocephalus, congenital Congenital hydrocephalus documented in this encounter Care Teams Residential Air Sealing Technician Relationship Specialty Start Date End Date Peter Lebron PA [address] [place] [address] PCP - General Internal Medicine 08/21/22 documented as of this encounter
--- OUTSIDE RECORDS SUMMARY | 2024-02-29 15:39 | XMS_ITS | Encounter Summary ---
Author Organization [facility] Address [address] [place] [address] Care Team Providers Care Hand Crown Pouncer Name Role Phone Unavailable Primary Care Provider Unavailabl e Encounter Details Date Type Department Care Team (Late st Contact Info) Description 12/27/1998 20:03 EST Hospital Encounter [facility] Emergency Department - [facility] [address] [place] [address] Emergency, MD [place] Social History Tobacco Use Types Packs/Day Years [...] on file documented as of this encounter Visit Diagnoses Not on filedocumented in this encounter
--- OUTSIDE RECORDS SUMMARY | 2024-02-29 15:39 | XMS_ITS | Encounter Summary ---
Author Organization [facility] Address [address] [place] [address] Care Team Providers Care Photography Sales Associate Name Role Phone Cl Beltran MD Primary Care Provider [phone] Encounter Details Date Type Department Care Team (Latest Contact Info) Description 12/17/2017 11:59 EDT - 12/17/2017 23:59 EDT Hospital Encounter [address] [address] Unknown, Provider, Discharge Disposition: Home or Self Care Social History Tobacco Use Types Packs/Day Years Used Date Smoking Tobacco: Never Assessed Sex and Gender Information Value Date Recorded Sex Assigned at Not on file Legal Sex Male 17:26 EST Gender Identity Not on file Sexual Orientation Not on file documented as of this encounter Discharge Disposition Disposition Code Departure Means Destination Home or Self Senior Care documented in this encounter Plan of Treatment Not on file documented as of this encounter Visit Diagnoses Not on filedocumented in this encounter Care Teams Photography Sales Associate Relationship Specialty Start Date End Date Cl Beltran MD PCP - General 01/02/15 10/23/21 documented as of this encounter
--- OUTSIDE RECORDS SUMMARY | 2024-02-29 15:39 | XMS_ITS | Encounter Summary ---
Author Organization [facility] Address [address] [place] [address] Care Team Providers Care Development Educator Name Role Phone Cl Beltran MD Primary Care Provider [phone] Irma Gates Primary Care Provider [phone] Encounter Details Date Type Department Care Team (Late st Contact Info) Description 09/06/2019 Lab Requisition [facility] Pathology & Laboratory Medicine - [address] [id number] Outr Resulting Lab, Provider Social History Tobacco [...] Procedure Name Priority Date/Time Associated Diagnosis Comments SPEP, INCLUDES QUANTITATION OF MONOCLONAL SPIKE Routine 09/06/2019 9:05 EDT documented in this encounter Results * (ABNORMAL) SPEP, INCLUDES QUANTITATION OF MONOCLONAL SPIKE (09/06/2019 9:05 EDT) Total Protein 7.3 6.3 - 8.2 g/dL 09/07/2019 12:57 EDT [facility] Albumin % 59.7 55.8 - 66.1 % 09/07/2019 12:57 EDT [facility] Alpha-1 % 3.2 2.9 - 4.9 % 09/07/2019 12:57 EDT [facility] Alpha-2 % 9.1 7.1 - 11.8 % 09/07/2019 12:57 EDT [facility] Beta % 14.6(H) 8.4 - 13.1 % 09/07/2019 12:57 EDT [facility] Gamma % 13.4 11.1 - 18.8 % 09/07/2019 12:57 EDT [facility] SPEP Comment No apparent monoclonal protein seen on serum electrophoresis 09/07/2019 12:57 EDT [facility] Comment:See scanned/suppleme ntary report. Blood VENOUS BLOOD / Unknown 09/06/2019 9:05 EDT 09/06/2019 16:27 EDT us Provider Outr Resulting Lab CHEMISTRY & BLOOD GA S ORDERABLES Final Result Performing Organization Address City/State/[facility] Co de Phone Number [facility] [address] [place] [address] documented in this encounter Visit Diagnoses Not on filedocumented in this encounter Care Teams Development Educator Relationship Specialty Start Date End Date Cl Beltran MD PCP - General 01/02/15 10/23/21 Irma Gates F[place] [address] [place] [address] PCP - General 10/24/21 documented as of this encounter
--- OUTSIDE RECORDS SUMMARY | 2024-02-29 15:39 | XMS_ITS | Encounter Summary ---
Author Organization [facility] Address [facility] [place] [address] Care Team Providers Care Strip Picker Name Role Phone Peter Lebron Primary Care Provider [phone] Encounter Details Date Type Department Care Team (Latest Contact Info) Description 10/12/2023 Travel Social History Tobacco Use Types Packs/Day Years Used Date Smoking Tobacco: Never Smokeless Tobacco: Never Alcohol Use Standard Drinks/Week Comments No 0 (1 standard drink = 0.6 oz pur e alcohol) [facility] Utilities Answer Date Recorded In the past [...] place to sleep or slept in a detention (including now)? No 07/03/2023 Housing Stability Vital Sign Answer Judah e Recorded In the last 12 months, was t here a time when you were not able to pay the mortgage or rent on time? No 09/24/2023 In the past 12 months, how m any times have you moved where you were living? 0 09/24/2023 At any time in the past 12 m ont, were you homeless or living in a detention (including now)? No 09/24/2023 DH IPV Inpatient Questions Answer Date Recorded Does [...] PM EDT documented as of this encounter Plan of Treatment Not on file documented as of this encounter Visit Diagnoses Not on filedocumented in this encounter Care Teams Strip Picker Relationship Specialty Start Date End Date Peter Lebron PA [address] [place] [address] PCP - General Internal Medicine 08/21/22 documented as of this encounter
--- OUTSIDE RECORDS SUMMARY | 2024-02-29 15:39 | XMS_ITS | Encounter Summary ---
Author Organization [facility] Address [address] [place] [address] Care Team Providers Care Customer Service Coordinator Name Role Phone Esther Beltran MD Primary Care Provider [phone] Encounter Details Date Type Department Care Team (Late st Contact Info) Description 12/17/2017 Results Only [facility] [phone] Ezra Douglass MD [address] [place] [id number] Social History Tobacco Use Types Packs/Day Years [...] Priority Date/Time Associated Diagnosis Comments SURGICAL PATHOLOGY Routine 12/17/2017 16 :39 EDT documented in this encounter Results * SURGICAL PATHOLOGY (12/17/2017 16:39 EDT) Pathology Report: SURGICAL PATHOLOGY REPORT Reports generated via electronic interface contain original data; however they are lacking the format of the original report. Caution should be taken when reading/interpretin g unformatted reports. Name: ? ARON KEANE ? Accession #: ? [id number] ? : ? 1970 (Age: 47) ??M ? Collect Date: ? 12/17/2017 ? Location: ? [facility] ? Receive Date: ? 12/17/2017 ? Provider: EZRA DOUGLASS MD Copy to: ESTHER BELTRAN MD ? Final Pathologic Diagnosis: A. ??STOMACH, ANTRUM, BIOPSIES: - Unremarkable corpus-type mucosa. - Negative for Helicobacter pylori organisms. ?? B. ??ESOPHAGUS, GASTROESOPHAGEAL JUNCTION, BIOPSY: - Mild reflux esophagitis. - Negative for Ghosh's specialized-columna r epithelium. ?? C. ??COLON, CECUM POLYP, POLYPECTOMY: - Tubular adenoma. ?? D. ??COLON, ASCENDING POLYPS, POLYPECTOMIES: - Tubular adenomas. ?? E. ??COLON, TRANSVERSE POLYP, POLYPECTOMY: - Tubular adenoma. ?? F. ??COLON, DESCENDING POLYPS, POLYPECTOMIES: - Tubular adenomas. ?? Document reviewed and electronically signed by: EDWARD MEAD MD Report ??Date: 12/18/2017 13:02 By the signature above, the attending physician certifies that he/she has personally conducted a gross and/or microscopic examination of the described specimens and rendered or confirmed the above diagnosis. Specimen(s) Received: A. ??Antrum bxs B. ??GE junction bx C. ??Cecal polyp D. ??Ascending colon polyp x2 E. ??Transverse colon polyp F. ??Descending colon polyp x2 Clinical History: Abdominal pain Gross Description: A. ?Received in formalin labelled with proper patient identification (initials M, J) and antrum bxs are two pink-thompson tissues (0.2 x 0.2 x 0.2 cm and 0.2 x 0.2 x 0.2 cm). Entirely submitted in A1. B. ?Received in formalin labelled with proper patient identification (initials M, J) and GE junction are two pink-thompson tissues (0.2 x 0.2 x 0.2 cm and 0.2 x 0.2 x 0.2 cm). Entirely submitted in B1. C. ?Received in formalin labelled with proper patient identification (initials M, J) and cecal polyp are two pink-thompson tissues (0.2 x 0.2 x 0.2 cm and 0.3 x 0.2 x 0.2 cm). Entirely submitted in C1. D. ?Received in formalin labelled with proper patient identification (initials M, J) and colon polyp x2 are three pink-thompson tissues (each averaging 0.2 x 0.2 x 0.2 cm).Entirely submitted in D1. E. ?Received in formalin labelled with proper patient identification (initials M, J) and transverse colon polyp is a single pink-thompson tissue fragment (0.3 x 0.3 x 0.2 cm). Submitted intact in E1. F. ?Received in formalin labelled with proper patient identification (initials M, J) and descending colon polyp are three pink-thompson tissues (0.2 x 0.2 x 0.2 cm, 0.2 x 0.2 x 0.2 cm, and 0.3 x 0.2 x 0.2 cm). Entirely submitted in F1. MARVA Cherry (ASCP) 12/17/2017 5:07 PM End of Report [facility] 12/17/2017 16:3 9 EDT 12/17/2017 16:39 EDT us Ezra Douglass MD PATHOLOGY ORDERABLES Fin al Result [facility] [address] [place] [address] documented in this encounter Visit Diagnoses Not on filedocumented in this encounter Care Teams Customer Service Coordinator Relationship Specialty Start Date End Date Esther Beltran MD PCP - General 01/02/15 10/23/21 documented as of this encounter
--- OUTSIDE RECORDS SUMMARY | 2024-02-29 15:39 | XMS_ITS | Encounter Summary ---
Author Organization [facility] Address [facility] [address] Care Team Providers Care Montessori Teacher Name Role Phone Peter Lebron Primary Care Provider [phone] Encounter Details Date Type Department Care Team (Latest Contact Info) Description 10/18/2023 Travel Social History Tobacco Use Types Packs/Day Years Used Date Smoking Tobacco: Never Smokeless Tobacco: Never Alcohol Use Standard Drinks/Week Comments No 0 (1 standard drink = 0.6 oz pur e alcohol) [facility] Utilities Answer Date Recorded In the [...] place to sleep or slept in a mcc (including now)? No 07/03/2023 Housing Stability Vital [...] were you homeless or living in a mcc (including now)? No 09/24/2023 DH IPV Inpatient [...] on filedocumented in this encounter Care Teams Montessori Teacher Relationship Specialty Start Date End Date Peter Lebron PA [address] [place] [address] PCP - General Internal Medicine 08/21/22 documented as of this encounter
--- OUTSIDE RECORDS SUMMARY | 2024-02-29 15:39 | XMS_ITS | Encounter Summary ---
Author Organization [facility] [place] [address] Care Team Providers Care Business Area Director Name Role Phone Peter Lebron Primary Care Provider [phone] Encounter Details Date Type Department Care Team (Latest Contact Info) Description 10/14/2023 10:00 AM EDT Clinical Support Neurosurgery at [facility] [place] [address] Presence of ventriculopleural shunt Social History Tobacco Use Types Packs/Day Years Used Date Smoking Tobacco: Never Smokeless Tobacco: Never Alcohol Use Standard Drinks/Week Comments No 0 (1 standard drink = 0.6 oz pur e alcohol) [facility] Utilities Answer Date Recorded In the past 12 months has e [employer], gas, oil, or water [employer] threatened to shut off services in your [...] place to sleep or slept in a snf (including now)? No 07/03/2023 Housing Stability Vital [...] time in the past 12 m [facility], were you homeless or living in a snf (including now)? No 09/24/2023 DH IPV Inpatient [...] PM EDT documented as of this encounter Last Filed Vital Signs Vital Sign Reading Time Taken Comments Blood Pressure 123/81 10/14/2023 10:08 AM EDT Pulse 80 10/14/2023 10:08 AM EDT Temperature 36.2 ??C (97.2 ??F) 10/14/2023 10:08 AM E DT Respiratory Rate - - Oxygen Saturation 98% 10/14/2023 10:08 AM EDT Inhaled Oxygen Concentration - - Weight - - Height - - Body Mass Index - - documented in this encounter Progress Notes * Jasmin No LPN - 10/14/2023 10:00 AM EDT Chapin Costa 1970 52 y.o. [id number] Procedures: VENTRICULO-PERITONEAL,-PLEURAL,-OTHER SHUNT Chapin Costa is is alert, oriented, and appropriate in NAD. His speech is clear. His ambulation is steady with narrow-based gait. He denies feeling lightheaded or dizzy. He denies numbness or tingling in upper and lower extremities. Hearing is intact. Facial features are symmetrical. Denies pain. Incision is well healed with skin edges well approximated. All sutures/isabella were removed. Current Outpatient Medications: Current Outpatient Medications: topiramate (Topamax) 25 mg tablet, Take 1 tablet by mouth 2 times daily., Disp: 60 tablet, Rfl: 5 melatonin 3 mg tablet, Take 1 tablet by mouth nightly as needed., Disp: , Rfl: oxyCODONE (Roxicodone) 5 mg tablet, Take 1 tablet by mouth every 4 hours as needed for Pain., Disp:20 tablet, Rfl: 0 sodium chloride 1 gram Tablet, Take 1 tablet by mouth 3 times daily., Disp: 30 tablet, Rfl: 3 pantoprazole EC (Protonix) [address] tablet, Take 1 tablet by mouth daily., Disp: 90 tablet, Rfl: 3 hydrOXYzine (Atarax) 25 mg tablet, Take 12.5 mg by mouth every 6 hours as needed for Anxiety., Disp: , Rfl: calcium-vitamin D3 600 mg calcium- 400 unit Tablet, Take 1 tablet by mouth daily., Disp: , Rfl: cyanocobalamin, Vitamin B-12, (Vitamin B-12) 1,000 mcg tablet, Take 1,000 mcg by mouth daily., Disp: , Rfl: atorvastatin (Lipitor) 40 mg tablet, Take 40 mg by mouth daily., Disp: , Rfl: hydrOXYzine (Atarax) 25 mg tablet, Take 25 mg by mouth nightly as needed (Insomnia)., Disp: , Rfl: ARIPiprazole (Abilify) 10 mg tablet, Take 10 mg by mouth daily., Disp: , Rfl: Aimovig Autoinjector 70 mg/mL Auto-Injector, Inject 70 mg as directed every 30 days. On the , Disp: , Rfl: levothyroxine (SYNTHROID) 25 mcg Tablet, Take 25 mcg by mouth nightly., Disp: , Rfl: sertraline (ZOLOFT) 100 mg Tablet, Take 150 mg by mouth daily., Disp: , Rfl: 0 testosterone cypionate (DEPOTESTOSTERONE CYPIONATE) 200 mg/mL Oil, Inject 250 mg into the muscle every 14 days., Disp: , Rfl: 0 senna-docusate (Pericolace) 8.6-50 mg Tablet, Take 2 tablets by mouth 2 times daily as needed for Constipation., Disp: 60 tablet, Rfl: 0 metoprolol succinate XL (Toprol-XL) 25 mg Tablet Sustained Release 24 hr, Take 25 mg by mouth daily., Disp: , Rfl: Jasmin No LPN documented in this encounter Plan of Treatment Not on file documented as of this encounter Visit Diagnoses Diagnosis Presence of ventriculopleural shunt Presence of cerebrospinal fluid drainage device documented in this encounter Care Teams Business Area Director Relationship Specialty Start Date End Date Peter Lebron PA [address] [place] [address] PCP - General Internal Medicine 08/21/22 documented as of this encounter
--- OUTSIDE RECORDS SUMMARY | 2024-02-29 15:39 | XMS_ITS | Encounter Summary ---
Author Organization [facility] [place] [address] Care Team Providers Care Photography Assistant Name Role Phone Peter Lebron Primary Care Provider [phone] Encounter Details Date Type Department Care Team (Late st Contact Info) Description 10/21/2023 11:00 AM EDT Office Visit Neurosurgery at [facility] [place] [id number] Encounter for removal of isabella Social History Tobacco Use Types Packs/Day Years Used Date Smoking Tobacco: Never Smokeless Tobacco: Never Alcohol Use Standard Drinks/Week Comments No 0 (1 standard drink = 0.6 oz pur e alcohol) [facility] Utilities Answer Date Recorded In the past 12 months has e [employer], gas, oil, or water company threatened to [...] place to sleep or slept in a alf (including now)? No 07/03/2023 Housing Stability Vital Sign Answer Judah e Recorded In the last 12 months, was t here a time when you were not able to pay the mortgage or rent on time? No 09/24/2023 In the past 12 months, how m any times have you moved where you were living? 0 09/24/2023 At any time in the past 12 m [facility], were you homeless or living in a alf (including now)? No 09/24/2023 IPV Inpatient Questions [...] Sign Reading Time Taken Comments Blood Pressure 99/68 10/21/2023 11:01 AM EDT Pulse 82 10/21/2023 11:01 AM EDT Temperature 36.5 ??C (97.7 ??F) 10/21/2023 11:01 AM E DT Respiratory Rate 17 10/21/2023 11:01 AM EDT Oxygen Saturation 98% 10/21/2023 11:01 AM EDT Inhaled Oxygen Concentration - - Weight 83.5 kg (184 lb 1.4 oz) 10/21/2023 11:01 AM EDT Height 167.6 cm (5' 5.98) 10/21/2023 11:01 AM E DT Body Mass Index 29.73 10/21/2023 11:01 AM EDT documented in this encounter Progress Notes * Beryl Horn, RN - 10/21/2023 11:00 AM EDT Chapin Costa 1970 52 y.o. [id number] Procedures: VENTRICULO-PERITONEAL,-PLEURAL,- shunt Chapin Costa is is alert, oriented, and appropriate in NAD. His speech is clear. His ambulation is steady with narrow-based gait. Tandem walk is stead, Romberg is negative. He denies feeling lightheaded or dizzy. He denies numbness or tingling in upper and lower extremities. Denies diplopia.EOM full without nystagmus. Hearing is intact. Facial features are symmetrical. Denies pain. Incision is well healed with skin edges well approximated. All sutures and isabella were removed. Current Outpatient Medications: Current Outpatient Medications: sodium chloride 1 gram Tablet, Take 1 tablet by mouth 3 times daily., Disp: 30 tablet, Rfl: 3 pantoprazole EC (Protonix) [address] tablet, Take 1 tablet by mouth daily., Disp: 90 tablet, Rfl: 3 calcium-vitamin D3 600 mg calcium- 400 unit [...] mg by mouth daily., Disp: , Rfl: levothyroxine (SYNTHROID) 25 mcg Tablet, Take 25 mcg by mouth nightly., Disp: , Rfl: sertraline (ZOLOFT) 100 mg Tablet, Take 150 mg by mouth daily., Disp: , Rfl: 0 testosterone cypionate (DEPOTESTOSTERONE CYPIONATE) 200 mg/mL Oil, Inject 250 mg into the muscle every 14 days., Disp: , Rfl: 0 Aimovig Autoinjector 70 mg/mL Auto-Injector, Inject 70 mg as directed every 30 days. On the , Disp: , Rfl: documented in this encounter Plan of Treatment Not on file documented as of this encounter Visit Diagnoses Diagnosis Encounter for removal of isabella Encounter for removal of sutures documented in this encounter Care Teams Photography Assistant Relationship Specialty Start Date End Date Peter Lebron PA [address] [place] [address] PCP - General Internal Medicine 08/21/22 documented as of this encounter
--- OUTSIDE RECORDS SUMMARY | 2024-02-29 15:39 | XMS_ITS | Encounter Summary ---
Author Organization [facility] [place] [address] Care Team Providers Care Manager Stars Name Role Phone Peter Lebron Primary Care Provider [phone] Reason for Referral * Diagnostic Test (Routine) - Closed Specialty Diagnoses / Procedures Referred By Contac t Referred To Contact Radiology Diagnoses Hydrocephalus, unspecified type Procedures CT Head wo Contrast (Generic) Olga Clifton MD [facility] [place] [place] [address] [facility] [place] [address] Referral ID Status Reason Start Date Expiration Date V isits Requested Visits Authorized [id number] Closed Specialty Service Requested 10/10/2023 04/11/2025 1 1 Reason for Visit * Diagnostic Test (Routine) - Closed Specialty Diagnoses / Procedures Referred By Contac t Referred To Contact Radiology Diagnoses Hydrocephalus, unspecified type Procedures CT Head wo Contrast (Generic) Olga Clifton MD [facility] [place] [place] [address] [facility] [place] [address] Referral ID Status Reason Start Date Expiration Date V isits Requested Visits Authorized [id number] Closed Specialty Service Requested 10/10/2023 04/11/2025 1 1 Encounter Details Date Type Department Care Team (Latest Contact Info) Description 11/12/2023 3:03 PM EDT - 11/12/2023 11:59 PM EDT Hospital Encounter CT Scan at [facility] [place] [address] Rhoda Jimenez MD [facility] [place] [address] Hydrocephalus, unspecified type Discharge Disposition: Home Social History Tobacco Use Types Packs/Day Years Used Date Smoking Tobacco: Never Smokeless Tobacco: Never Alcohol Use Standard Drinks/Week Comments No 0 (1 standard drink = 0.6 oz pur e alcohol) [facility] Utilities Answer Date Recorded In the past 12 months has e electric, gas, oil, or water company [...] place to sleep or slept in a usp (including now)? No 07/03/2023 Housing Stability Vital Sign Answer Judah e Recorded In the last 12 months, was t here a time when you were not able to pay the mortgage or rent on time? No 09/24/2023 In the past 12 months, how m any times have you moved where you were living? 0 09/24/2023 At any time in the past 12 m [facility], were you homeless or living in a usp (including now)? No 09/24/2023 DH IPV Inpatient [...] PM EDT documented as of this encounter Medications at Time of Discharge Medication Sig Dispensed Refills Start Date End Date sodium chloride 1 gram Tablet Take 1 tablet by mouth 3 times daily. 30 tablet 3 10/10/2023 pantoprazole EC (Protonix) [address] tablet Take 1 tablet by mouth daily. 90 tablet 3 10/11/2023 calcium-vitamin D3 600 mg calcium- 400 unit Tablet Take 1 tablet by mouth daily. cyanocobalamin, Vitamin B-12, (Vitamin B-12) 1,000 mcg tablet Take 1,000 mcg by mouth daily. atorvastatin (Lipitor) 40 mg tablet Take 40 mg by mouth daily. 08/11/2022 hydrOXYzine (Atarax) 25 mg tablet Take 25 mg by mouth nightly as needed (Insomnia). 08/12/2022 ARIPiprazole (Abilify) 10 mg tablet Take 10 mg by mouth daily. 05/29/2022 Aimovig Autoinjector 70 mg/mL Auto-Injector Inject 70 mg as directed every 30 days. On the of every month 04/29/2022 levothyroxine (SYNTHROID) 25 mcg Tablet Take 25 mcg by mouth nightly. sertraline (ZOLOFT) 100 mg Tablet Take 150 mg by mouth daily. 0 03/19/2018 testosterone cypionate (DEPOTESTOSTERONE CYPIONATE) 200 mg/mL Oil Inject 250 mg into the muscle every 14 days. 0 05/03/2018 documented as of this encounter Plan of Treatment Not on file documented as of this encounter Procedures Procedure Name Priority Date/Time Associated Diagnosis Comments CT HEAD WO CONTRAST (GENERIC) Routine 11/12/2023 3:41 PM EDT Hydrocephalus, unspecified type documented in this encounter Results * CT Head wo Contrast (Generic) (11/12/2023 3:41 PM EDT) WORKSTATION ID [id number] RAD Anatomical Region Laterality Modality Head Computed Tomogra phy Impressions 11/12/2023 4:18 PM EDT Interval reduced caliber of the supratentorial ventricles. Thank you for letting us participate in the care of this patient. ??If you are a health care provider and have any questions regarding this report, please contact the number below. ??For patients who have questions please contact the health childcare attendant that requested your imaging first. ? Narrative 11/12/2023 4:18 PM EDT EXAMINATION: CT HEAD WO CONTRAST (GENERIC) CLINICAL HISTORY: s/p L v-pleural shunt TECHNIQUE: CT Head was performed without contrast COMPARISON: CT head 10/09/2023 FINDINGS: Right frontal gala hole from prior catheter. Evolution of hemorrhage in the right frontal lobe with encephalomalacia. Evolution of hypoattenuation about the frontal horns. Left posterior approach ventricular shunt catheter is unchanged in position terminating in the midline. Interval decreased caliber of the supratentorial ventricles, now slitlike. No midline shift or extra-axial collection. The vu-white differentiation appears maintained. Otomastoid spaces and visualized paranasal sinuses are clear. Procedure Note Linsey Herrera MD - 11/12/2023 EXAMINATION: CT HEAD WO CONTRAST (GENERIC) CLINICAL HISTORY: s/p L v-pleural shunt TECHNIQUE: CT Head was performed without contrast COMPARISON: CT head 10/09/2023 FINDINGS: Right frontal gala hole from prior catheter. Evolution ofhemorrhage in the right frontal lobe with encephalomalacia. Evolution ofhypoattenuation about the frontal horns. Left posterior approach ventricular shuntcatheter is unchanged in position terminating in the midline. Interval decreasedcaliber of the supratentorial ventricles, now slitlike. No midline shift orextra-axial collection. The vu-white differentiation appears maintained. Otomastoidspaces and visualized paranasal sinuses are clear. IMPRESSION Interval reduced caliber of the supratentorial ventricles. Thank you for letting us participate in the care of this patient. If youare a health care provider and have any questions regarding this report,please contact the number below. For patients who have questions please contactthe health childcare attendant that requested your imaging first. Electronically signed by: Linsey Herrera [facility]([phone]), at 11/12/2023 4:18 PM Rhoda Jimenez MD IMG CT ORDERABLES documented in this encounter Visit Diagnoses Diagnosis Hydrocephalus, unspecified type documented in this encounter Care Teams Manager Stars Relationship Specialty Start Date End Date Peter Lebron PA [address] [place] [address] PCP - General Internal Medicine 08/21/22 documented as of this encounter
--- OUTSIDE RECORDS SUMMARY | 2024-02-29 15:39 | XMS_ITS | Encounter Summary ---
Author Organization [facility] Address [address] [place] [address] Care Team Providers Care Web Editor Name Role Phone Cl Beltran MD Primary Care Provider [phone] Irma Gates Primary Care Provider [phone] Encounter Details Date Type Department Care Team (Late st Contact Info) Description 09/30/2019 Lab Requisition [facility] Pathology & Laboratory Medicine - [address] [address] Outr Resulting Lab, Provider Social History Tobacco [...] ORDER STANDALONE - BROAD COVID TEST Today 09/30/2019 10:01 EDT COVID-19 TESTING Routine 09/30/2019 10:0 1 EDT documented in this encounter Results * DO NOT ORDER STANDALONE - BROAD COVID TEST (09/30/2019 10:01 EDT) [facility] COVID-19 rt-PCR Result NEGATIVE Negative 10/01/2019 16:45 EDT [facility] Comment: 2019-novel Coronavirus (2019-nCoV) not detected [...] in accordance with CLIA regulations, College [employer] (CAP) guidelines (May 12, 2019), and FDA guidance (Apr 23, 2019). This test is only for use under the Food and Drug Administration's Emergency Use Authorization. Swab ENTIRE NASOPHARYNX / Unknown 09/30/2019 10:01 EDT 09/30/2019 15:55 EDT us Provider Outr Resulting Lab MICROBIOLOGY - GENER AL ORDERABLES Final Result [facility] [place], [place] * COVID-19 TESTING (09/30/2019 10:01 EDT) COVID-19 rt-PCR Result NEGATIVE Negative 10/01/2019 18:02 EDT [facility] Comment: 2019-novel Coronavirus (2019-nCoV) not detected [...] in accordance with CLIA regulations, College [employer] (CAP) guidelines (May 12, 2019), and FDA guidance (Apr 23, 2019). This test is only for use under the Food and Drug Administration's Emergency Use Authorization. Performing Lab [facility] 10/01/2019 18:02 EDT [facility] Swab 09/30/2019 10:0 1 EDT 09/30/2019 15:55 EDT us Provider Outr Resulting Lab MICROBIOLOGY - GENER AL ORDERABLES Final Result [facility] [address] [place] [address] [facility] [place] documented in this encounter Visit Diagnoses Not on filedocumented in this encounter Care Teams Web Editor Relationship Specialty Start Date End Date Cl Beltran MD PCP - General 01/02/15 10/23/21 Irma Gates FNP [address] [place] [address] [place] [address] PCP - General 10/24/21 documented as of this encounter
--- OUTSIDE RECORDS SUMMARY | 2024-02-29 15:39 | XMS_ITS | Encounter Summary ---
Author Organization [facility] Address [facility] [place] [address] Care Team Providers Care Stock Associate Name Role Phone Peter Lebron Primary Care Provider [phone] Encounter Details Date Type Department Care Team (Late st Contact Info) Description 11/12/2023 4:20 PM EDT Office Visit Neurosurgery at [facility] [place] [address] Rhoda Jimenez MD [facility] [place] [place] [address] Seizures Social History Tobacco Use Types Packs/Day Years Used Date Smoking Tobacco: Never Smokeless Tobacco: Never Alcohol Use Standard Drinks/Week Comments No 0 (1 standard drink = 0.6 oz pur e alcohol) [facility] Utilities Answer Date Recorded In the past 12 months has e electric, gas, oil, or water [employer] threatened to shut off services in your [...] place to sleep or slept in a long-term (including now)? No 07/03/2023 Housing Stability Vital [...] in the past 12 m [facility], were you homeless or living in a long-term (including now)? No 09/24/2023 IPV Inpatient Questions [...] Sign Reading Time Taken Comments Blood Pressure 131/79 11/12/2023 4:03 PM EDT Pulse 80 11/12/2023 4:03 PM EDT Temperature 35.6 ??C (96.1 ??F) 11/12/2023 4:03 PM ED T Respiratory Rate 18 11/12/2023 4:03 PM EDT Oxygen Saturation 99% 11/12/2023 4:03 PM EDT Inhaled Oxygen Concentration - - Weight 85.7 kg (189 lb) 11/12/2023 4:03 PM EDT Height 167.6 cm (5' 6) 11/12/2023 4:03 PM EDT Body Mass Index 30.51 11/12/2023 4:03 PM EDT documented in this encounter Progress Notes * Rhoda Jimenez MD - 11/12/2023 4:20 PM EDT It was a pleasure to see Chapin Costa in follow-up today. Mr. Costa is a 51-year-old gentleman with shunted hydrocephalus since childhood. He is s/p a newleft occipital ventriculo-pleural shunt placement with ms on 10/09/2023. His previous shunt was removed due to infection. He is presenting for scheduled postoperative follow-up, accompanied by his mom. They relate that Mr. Costa has been doing very well at home. He longer has any headaches. His energy is improved, his memory and speech are all improved. I reviewed the final cultures from his operating room CSF specimens. These are no growth to date. On exam, he has a well-healed incision in the left occiput, as well as the left anterior chest incision. There is no erythema, drainage, fluctuance. He is awake, alert, fully oriented and cooperative. His speech is fluent. His pupils are equal round and reactive to light. He has baseline strabismus. Extraocular symptoms are full without nystagmus. His facial movement is symmetric. Hearing is intact to finger rub bilaterally. He has intact strength to confrontation in extremities, he walks independently with a normal gait. I reviewed his CT of the head without contrast which is obtained earlier today. This demonstrates decreased size of his ventricles, with no postoperative complications or evidence of subdural hematomas from over drainage. The catheter position looks stable. Overall, Mr. Costa is doing very well revision. He has no complaints today. He is planning to goto the [facility] for his vacation, I think this is perfectly safe. I would be happy to see him again on an as-needed basis. Plan: Follow-up as needed documented in this encounter Plan of Treatment Not on file documented as of this encounter Visit Diagnoses Diagnosis Seizures Other convulsions documented in this encounter Care Teams Stock Associate Relationship Specialty Start Date End Date Peter Lebron PA [address] [facility] [address] [place] [address] PCP - General Internal Medicine 08/21/22 documented as of this encounter
--- OUTSIDE RECORDS SUMMARY | 2024-02-29 15:39 | XMS_ITS | Encounter Summary ---
Author Organization [facility] Address [facility] [place] [address] Care Team Providers Care Advanced Manufacturing Associate Name Role Phone Peter Lebron Primary Care Provider [phone] Encounter Details Date Type Department Care Team (Latest Contact Info) Description 11/12/2023 Travel Social History Tobacco Use Types Packs/Day Years Used Date Smoking Tobacco: Never Smokeless Tobacco: Never Alcohol Use Standard Drinks/Week Comments No 0 (1 standard drink = 0.6 oz pur e alcohol) [facility] Utilities Answer Date Recorded [...] place to sleep or slept in a mcfp (including now)? No 07/03/2023 Housing Stability Vital [...] were you homeless or living in a mcfp (including now)? No 09/24/2023 DH IPV Inpatient [...] on filedocumented in this encounter Care Teams Advanced Manufacturing Associate Relationship Specialty Start Date End Date Peter Lebron PA [address] [place] [address] PCP - General Internal Medicine 08/21/22 documented as of this encounter
--- OUTSIDE RECORDS SUMMARY | 2024-02-29 15:39 | XMS_ITS | Encounter Summary ---
Author Organization [facility] Address [facility] [place] [address] Care Team Providers Care Hotel Night Auditor Name Role Phone Peter Lebron Primary Care Provider [phone] Encounter Details Date Type Department Care Team (Latest Contact Info) Description 11/05/2023 Travel Social History Tobacco Use Types Packs/Day Years Used Date Smoking Tobacco: Never Smokeless Tobacco: Never Alcohol Use Standard Drinks/Week Comments No 0 (1 standard drink = 0.6 oz pur e alcohol) [facility] Utilities Answer Date Recorded In the [...] place to sleep or slept in a correction (including now)? No 07/03/2023 Housing Stability Vital [...] were you homeless or living in a correction (including now)? No 09/24/2023 DH IPV Inpatient [...] on filedocumented in this encounter Care Teams Hotel Night Auditor Relationship Specialty Start Date End Date Peter Lebron PA [address] [place] [address] PCP - General Internal Medicine 08/21/22 documented as of this encounter
--- OUTSIDE RECORDS SUMMARY | 2024-02-29 15:39 | XMS_ITS | Clinical Summary ---
Author Organization [facility] Address [facility] [place] [address] Care Team Providers Care Client Coordinator Name Role Phone Peter Lebron Primary Care Provider [phone] Allergies Active Allergy Reactions Criticality Noted Date Comments Latex High 12/07/2019 Other reaction(s): hives with latex powdered gloves Penicillins Rash High 06/04/2022 Childhood rash/hive with penicillin. Tolerated amox-clav and amp 05/2023. Tolerated cephalosporins. Transparent Dressings Itching,Other (See Comments) High 03/24/2019 Patient needs no sting barrier wipes prior to Tegaderm application. Tolerates Tegaderm dressing post-application of skin barrier without itching/hives per patient. Vancomycin Hives,Itching High 06/04/2022 Other reaction(s): Skin Rash Administering IV Benadryl prior to each Vancomycin dose seems to alleviate the reaction/allergy. Vancomycin Analogues Vancomycin Hcl Medications Medication Sig Dispensed Refills Start Date End Date Status levothyroxine (SYNTHROID) 25 mcg Tablet Take 25 mcg by mouth nightly. Active sertraline (ZOLOFT) 100 mg Tablet Take 150 mg by mouth daily. 0 03/19/2018 Active testosterone cypionate (DEPOTESTOSTERONE CYPIONATE) 200 mg/mL Oil Inject 250 mg into the muscle every 14 days. 0 05/03/2018 Active Aimovig Autoinjector 70 mg/mL Auto-Injector Inject 70 mg as directed every 30 days. On the of every month 04/29/2022 Active ARIPiprazole (Abilify) 10 mg tablet Take 10 mg by mouth daily. 05/29/2022 Active atorvastatin (Lipitor) 40 mg tablet Take 40 mg by mouth daily. 08/11/2022 Active hydrOXYzine (Atarax) 25 mg tablet Take 25 mg by mouth nightly as needed (Insomnia). 08/12/2022 Active calcium-vitamin D3 600 mg calcium- 400 unit Tablet Take 1 tablet by mouth daily. Active cyanocobalamin, Vitamin B-12, (Vitamin B-12) 1,000 mcg tablet Take 1,000 mcg by mouth daily. Active sodium chloride 1 gram Tablet Take 1 tablet by mouth 3 times daily. 30 tablet 3 10/10/2023 Active pantoprazole EC (Protonix) [address] tablet Take 1 tablet by mouth daily. 90 tablet 3 10/11/2023 Active Active Problems Patient Care Coordination No te Formatting of this note migh t be different from the original. Right VPS set to 80 mm on 04/22/18 s/p MRI. 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 Almanza for worsening h/a, recommended Headache Clinic and routine head CT and plain films every 2 years Seizures 03/23/2019 Cervicalgia 01/22/2017 Headache 01/15/2017 Persistent headaches 01/14/2017 Family History Medical History Relation Comments Muscular Dystrophy Cousin Relation Status Comments Cousin Other Social History Tobacco Use Types Packs/Day Years Used Date Smoking Tobacco: Never Smokeless Tobacco: Never Alcohol Use Standard Drinks/Week Comments No 0 (1 standard drink = 0.6 oz pur e alcohol) [facility] Utilities Answer Date Recorded In the past 12 months has [place], oil, or water [employer] threatened to shut off services in your [...] place to sleep or slept in a fci (including now)? No 07/03/2023 Housing Stability Vital Sign Answer Judah e Recorded In the last 12 months, was t here a time when you were not able to pay the mortgage or rent on time? No 09/24/2023 In the past 12 months, how m any times have you moved where you were living? 0 09/24/2023 At any time in the past 12 m [facility], were you homeless or living in a fci (including now)? No 09/24/2023 DH IPV Inpatient [...] Orientation Straight 10/11/2020 1: 38 PM EDT Last Filed Vital Signs Vital Sign Reading [...] Mass Index 30.51 11/12/2023 4:03 PM EDT Plan of Treatment Health Maintenance Due Date Last Done Comments CT Colonography 1972 Colonoscopy 1972 Colorectal Cancer Screening 1972 FIT DNA 1972 FIT 1972 Sigmoidoscopy (10 year) with FIT yearly 1972 Sigmoidoscopy 1972 HIV screen 1990 Hepatitis C Screening 1990 Hepatitis B vaccine (0-59 yrs) (1) 11/28/1991 Tetanus/Diphtheria/Pertussis Vaccines (1 - Tdap) 11/28/1991 Zoster vaccine (1 of 2) 2022 Covid-19 Vaccine (1 - 2023-2 5 season) 2023 Influenza (Flu) vaccine (1 o f 1 - Influenza standard series) 10/25/2023 Diabetes Screening (HgbA1C o r Glucose) 10/09/2026 10/10/2023, 10/09/2023, 10/08/2023, Additional history exists Medical Devices Implanted Type Area Irrigation District Manager Device Identifier Shelf Expiration Date Model / Serial / Lot Codman Valve-04/18/2004 Implanted:Qty: 1 on 04/18/2004 IMPLANTS Brain CODMAN - [facility] Description:When scanned at [facility] the above implant is MR Conditional up to 3T. The following parameters must be followed when scanning: The Codman?? Hakim?? Programmable Valve is considered to be MRI Conditional according to ASTM F2503. The valve demonstrates no known hazards when an MRI is performed under the following conditions: MRI can be performed at any time after implantation. Use an MRI System with a static magnetic field of 3 evonne or less. Use an MRI System with a spatial gradient of 720 Guass/cm or less. Limit the exposure to RF energy to a iuhcu-waiw-ofdlyusq specific absorption rate (CLARKE) of W/kg for 15 minutes . Verify the valve setting after the MRI procedure (see 'Programming the Valve') In non-clinical testing, the CHPV produced a temperature rise of 0.4??C at a maximum whole body averaged specific absorption rate (CLARKE) of 3.0W/kg for 15 minutes of MR scanning in a 3-Evonne Excite?? [employer] MR scanner. It is also advisable to x-ray the valve whenever valve pressure is reprogrammed or if the patient undergoes an MRI. Amadou Schwartz RT(R)(CT)(MR)(ARRT), MRI Safety Technologist, 03/19/2022 Valve Shunt Ventricular 49d23mf Cylindrical Hakim ([id number]) - [id number] Implanted:Qty: 1 on 05/24/2022 by Rhoda Jimenez MD at [facility] IMPLANTS Occipital Lobe LYN & LYN [facility] [id number] 07/23/2022 [id number] / / [id number] Connector Shunt Cerebral 1.8x1.2mm Csf Straight Ss ([id number]) - [id number] Implanted:Qty: 1 on 06/09/2023 by Rhoda Jimenez MD at [facility] IMPLANTS Right: Abdomen INTEGRA - IN[employer]RA [id number] 11/30/2023 [id number] / / [id number] Cath Dialysis 120x0.25x0.13cm Peritoneal Antibiotic ([id number]) - [id number] Implanted:Qty: 1 on 06/29/2023 by Rhoda Jimenez MD at [facility] IMPLANTS Right: Cranial [employer] 07/08/2024 [id number] / / [id number] [place] Ventricular Shunt 15cm Pediatric Saud Hole Pp ([id number]) - [id number] Implanted:Qty: 1 on 10/09/2023 by Rhoda Jimenez MD at [facility] IMPLANTS Left: Cranial INTEGRA - INTEGRA [id number] / / Valve Shunt Cerebral Small Certas Siphonguard ([id number]) (Autoreq) - [id number] Implanted:Qty: 1 on 10/09/2023 by Rhoda Jimenez MD at [facility] IMPLANTS Left: Cranial INTEGRA - INTEGRA [id number] L / / Cath Drainage [id number] Antimicrobial Dual Angel Cynthia Kanu ([id number]) (Autoreq) - [id number] Implanted:Qty: 1 on 10/09/2023 by Rhoda Jimenez MD at [facility] IMPLANTS Left: Cranial [employer] [id number] / / Cath Dialysis 120x0.25x0.13cm Peritoneal Antibiotic ([id number]) - [id number] Implanted:Qty: 1 on 10/09/2023 by Rhoda Jimenez MD at [facility] IMPLANTS Left: Pleural Space [employer] [id number] / / Procedures Procedure Name Priority Date/Time Associated Diagnosis Comments BASIC METABOLIC PANEL Routine 10/10/2023 4:16 AM EDT from Last 3 Months or Most Recently Relevant to Health Maintenance Results * (ABNORMAL) Basic Metabolic Panel (10/10/2023 4:16 AM EDT) [facility] [address] Glucose 121 65 - 199 mg/dL [facility] Comment:Glucose Concentratio n >=200 mg/dL plus symptoms is consistent with Diabetes Mellitus. Blood Urea Nitrogen 15 10 - 20 mg/dL 10/10/2023 4:54 AM [facility] Creatinine 1.12 0.80 - 1.50 mg/dL 10/10/2023 4:[facility] Sodium 137 135 - 145 mMol/L 10/10/2023 4:54 AM [facility] Potassium 4.4 3.5 - 5.0 mMol/L 10/10/2023 4:[facility] Chloride 104 98 - 107 mMol/L 10/10/2023 4:54 AM [facility] Carbon Dioxide 19(L) 22 - 31 mMol/L 10/10/2023 4:54 [facility] Anion Gap 14 5 - 15 mMol/L 10/10/2023 4:54 AM EDT [facility] Calcium 9.3 8.5 - 10.5 mg/dL 10/10/2023 4:54 AM EDT [facility] Est Glomerular Filtration Rate - Male 80 mL/min/1. 73 m?? 10/10/2023 4:54 AM EDT [facility] Comment: This patient's estimated GFR was calculated using the 2020 CKD-EPI equation. The estimated GFR can vary from the measured GFR by up to 30% in the absence of rapidly changing kidney function. Assessment of the estimated GFR is not appropriate when creatinine concentrations are rapidly changing. For clinical situations in which a more precise estimate of GFR is necessary, consider alternative methods of GFR estimation such as a 24-hour urine creatinine clearance. Assignment of CKD stage 1 - 5 for patients with an eGFR near the transition point between stages may be based on clinical assessment of muscle mass and symptoms in addition to eGFR. Link: eGFR Calculator [employer] Blood VENOUS BLOOD SPECIMEN / Unknown IP Care Team Draw / Unknown 10/10/2023 4:16 AM EDT 10/10/2023 4:24 AM EDT Rhoda Jimenez MD CHEMISTRY ORDERABLES [facility] [place] [address] from Last 3 Months or Most Recently Relevant to Health Maintenance Advance Directives Documents on File Type Date Recorded Patient Chief Strategy Officer Expl anation Personal Chief Strategy Officer 09/17/2022 12:42 PM aiden edmond Guardianship document 10/18/2020 9:54 AM Warren Edmond [employer] Costa * Attempt Cardiopulmonary Resuscitation - Inpatient (Latest Code Status on File) Date Activated Date Inactivated Comments 09/24/2023 1:17 AM 10/10/2023 7:43 PM Question Answer Comments Code Status decision made by: Patient Content of discussion: GOC * Attempt Cardiopulmonary Resuscitation - Inpatient Date Activated Date Inactivated Comments 09/23/2023 11:55 PM 09/24/2023 1:17 AM Question Answer Comments Code Status decision made by: Patient Content of discussion: full code * Attempt Cardiopulmonary Resuscitation - Inpatient Date Activated Date Inactivated Comments 07/03/2023 8:33 PM 07/08/2023 3:01 PM Question Answer Comments Code Status decision made by: Patient * Attempt Cardiopulmonary Resuscitation - Inpatient Date Activated Date Inactivated Comments 07/02/2023 5:50 PM 07/03/2023 8:33 PM Question Answer Comments Code Status decision made by: Patient * Attempt Cardiopulmonary Resuscitation - Inpatient Date Activated Date Inactivated Comments 06/16/2023 3:13 PM 06/30/2023 6:38 PM Question Answer Comments Code Status decision made by: Two - Attending Miranda Content of discussion: Will clarify further on p atient admission Care Teams Client Coordinator Relationship Specialty Start Date End Date Peter Lebron PA [address] [place] [address] PCP - General Internal Medicine 08/21/22
--- OUTSIDE RECORDS SUMMARY | 2024-02-29 15:39 | XMS_ITS | Encounter Summary ---
Author Organization [facility] Address [address] [place] [address] Care Team Providers Care Human Factors Ergonomist Name Role Phone Unavailable Primary Care Provider Unavailabl e Encounter Details Date Type Department Care Team (Late st Contact Info) Description 08/13/2005 Results Only [facility] [address] [place] [address] Michael Soliz MD [address] [place] [address] Social History Tobacco Use Types Packs/Day Years [...] Date/Time Associated Diagnosis Comments SURGICAL PATHOLOGY Routine 08/13/2005 0:00 EDT documented in this encounter Results * SURGICAL PATHOLOGY (08/13/2005 0:00 EDT) Pathology Report: SURGICAL PATHOLOGY REPORT Reports generated via electronic interface contain original data; however they are lacking the format of the original report. Caution should be taken when reading/interpreti ng unformatted reports. Name: ? ARON COSTA ? Accession #: ? [id number] ? : ? 1970 (Age: 34) ??M ? Collect Date: ? 08/13/2005 ? Location: ? [facility] ? Receive Date: ? 08/13/2005 ? Provider: MICHAEL SOLIZ MD Copy to: ESTHER BEACH MD ? Final Pathologic Diagnosis: ? Gallbladder, cholecystectomy: 1. ?Chronic cholecystitis. 2. ?Cholesterolosis. 3. ?Cystic duct lymph node with no significant pathologic features. Document reviewed and electronically signed by: MEDINA FRASER MD Report ??Date: 08/15/2005 17:14 By the signature above, the attending physician certifies that he/she has personally conducted a gross and/or microscopic examination of the described specimens and rendered or confirmed the above diagnosis. Specimen(s) Received: ? Gallbladder Clinical History: ? Abd pain, (-) US, (+) CCK HIDA scan Gross Description: ? Received in dark green, bile-stained formalin labeled Costa and gallbladder is a 7.5 x 2.5 cm incised gallbladder which includes a 1.1 x 0.3 cm cystic duct. ??There is a 0.4 cm thompson cystic duct lymph node. ??The gallbladder contains dark green bile but does not contain any stones. ??The mucosa is diffusely dark green and focally studded with light yellow flecks. ??The wall measures 0.1 cm in thickness. ??The serosa is unremarkable. Clinical Account Specialist sections are submitted in one cassette. ??(Gideon Abel/[facility] End of Report [facility] 08/13/2005 08/13/2005 9:3 7 EDT us Michael Soliz MD PATHOLOGY ORDERABLES Final Result Performing Organization Address City/State/[facility] Co de Phone Number [facility] [address] [place] [address] documented in this encounter Visit Diagnoses Not on filedocumented in this encounter
--- OUTSIDE RECORDS SUMMARY | 2024-02-29 15:39 | XMS_ITS | Encounter Summary ---
Author Organization [facility] Address [facility] [address] Care Team Providers Care Cyber Security Architect Name Role Phone Peter Lebron Primary Care Provider [phone] Encounter Details Date Type Department Care Team (Latest Contact Info) Description 10/21/2023 Travel Social History Tobacco Use Types Packs/Day Years Used Date Smoking Tobacco: Never Smokeless Tobacco: Never Alcohol Use Standard Drinks/Week Comments No 0 (1 standard drink = 0.6 oz pur e alcohol) [facility] Utilities Answer Date Recorded In the [...] place to sleep or slept in a nursing home (including now)? No 07/03/2023 Housing Stability Vital [...] were you homeless or living in a nursing home (including now)? No 09/24/2023 DH IPV Inpatient [...] on filedocumented in this encounter Care Teams Cyber Security Architect Relationship Specialty Start Date End Date Peter Lebron PA [address] [place] [address] PCP - General Internal Medicine 08/21/22 documented as of this encounter
--- OUTSIDE RECORDS SUMMARY | 2024-02-29 15:39 | XMS_ITS | Encounter Summary ---
Author Organization [facility] Address [facility] [place] [address] Care Team Providers Care Equipment Inspector Name Role Phone Peter Lebron Primary Care Provider [phone] Encounter Details Date Type Department Care Team (Latest Contact Info) Description 10/14/2023 Travel Social History Tobacco Use Types Packs/Day Years Used Date Smoking Tobacco: Never Smokeless Tobacco: Never Alcohol Use Standard Drinks/Week Comments No 0 (1 standard drink = 0.6 oz pur e alcohol) [facility] Utilities Answer Date Recorded In [...] on filedocumented in this encounter Care Teams Equipment Inspector Relationship Specialty Start Date End Date Peter Lebron PA [address] [place] [address] PCP - General Internal Medicine 08/21/22 documented as of this encounter
--- OUTSIDE RECORDS SUMMARY | 2024-02-29 15:39 | XMS_ITS | Encounter Summary ---
Author Organization [facility] Address [facility] [place] [address] Care Team Providers Care Lunch Wagon Operator Name Role Phone Peter Lebron Primary Care Provider [phone] Reason for Visit * Reason Onset Date Comments Appointment 10/12/2023 Encounter Details Date Type Department Care Team (Late st Contact Info) Description 10/12/2023 Telephone Neurosurgery at [facility] [place] [phone] Mirian Murrieta PA [facility] [place] [address] Appointment Social History Tobacco Use Types Packs/Day Years Used Date Smoking Tobacco: Never Smokeless Tobacco: Never Alcohol Use Standard Drinks/Week Comments No 0 (1 standard drink = 0.6 oz pur e alcohol) [facility] Utilities Answer Date Recorded In [...] any time in the past 12 m [facility], were you homeless or living in a correction (including now)? No 09/24/2023 IPV Inpatient Questions [...] encounter Miscellaneous Notes * Telephone Encounter - Bell Kuhn Zelda - 10/12/2023 10:30 AM EDT Images from the original note were not included. Called patient scheduled 11.11 CT and appt with Dr. Jimenez. Mirian Murrieta, MARVA P [facility] [place] Yuan Curtis had a ventriculopleural shunt placement with Dr. Jimenez on 8/16/24 and needs follow up in 4-[address] head. Thank you! documented in this encounter Plan of Treatment Not on file documented as of this encounter Visit Diagnoses Not on filedocumented in this encounter Care Teams Lunch Wagon Operator Relationship Specialty Start Date End Date Peter Lebron PA [address] [place] [address] PCP - General Internal Medicine 08/21/22 documented as of this encounter
--- OUTSIDE RECORDS SUMMARY | 2024-02-29 15:40 | XMS_ITS | Encounter Summary ---
[place] [address] Care Team Providers Care Message Broker Developer Name Role Phone Peter Lebron Primary Care Provider [phone] Reason for Visit * Auth/Cert (Routine) Specialty Diagnoses / Procedures Referred By Contac t Referred To Contact Diagnoses Shunt malfunction Nonintractable headache, unspecified chronicity pattern, unspecified headache type Rhoda Jimenez MD [facility] [place] [address] [facility] Referral ID Status Reason Start Date Expiration Date Visits Re quested Visits Authorized [id number] 1 1 Encounter Details Date Type Department Care Team (Late st Contact Info) Description 10/09/2023 12:22 PM EDT Anesthesia [place] [address] Iesha Foley MD [facility] [place] [address] Anesthesia Record Procedure Summary Procedure Name Responsible Anesthesiologist Anesthesia Start Time Anesthesia Stop Time @VENTRICULO-PERITON EAL,-PLEURAL,-OTHER SHUNT (WRVU 14.05) (Left: Head) Iesha Foley MD 10/09/23 1222 10/09/23 1559 Events Date Time Event Comment 10/09/2023 1100 1222 AN Verify 1222 Start 1222 An Start Data 1230 An Induction 1233 An Intubation 1256 Anesthesia Ready 1341 an reick now Local infiltrat ion by surgeon 8 ml 1439 Break/Relief In I assumed ca re for Break Relief before which we: 1. Identified the patient 2. Identified the responsible provider(s) 3. Reviewed the pertinent medical history 4. Discussed the surgical plan and course 5. Reviewed intra-op anesthesia management and issues during anesthesia 6. Set expectations for the relief (and/or post-procedure) period 7. Allowed opportunity for questions and acknowledgement of understanding Iesha Foley MD, PhD 1452 Break/Relief Out 1543 Extubation/LMA Out 1550 an stop data 1558 Recovery or ICU Handoff Candi ent care was transferred to the destination unit staff after review of the patient's medical history, current anesthetic/surgical status and plan, according to the Provider Handoff Checklist. 1559 Stop Meds Name Total fentaNYL 125 mcg lidocaine IV 100 mg propofoL 200 mg rocuronium 120 mg dexAMETHasone 8 mg ceFAZolin 2 g acetaminophen IV 1,000 mg propofol INF 1,154.73 mg dexmedeTOMIDine 4 mcg/mL 16 mcg ondansetron 4 mg sugammadex 170 mg lactated ringers 750 mL * Agents Name O2 * Blood No blood administrations on file. Lines, Drains, and Airways Type Details Placement Removal Incision 09/24/23; 1011; Righ t, posterior; ear; Dressing: Polysporin ointment, Xeroform, 4x4, Medipore tape. 09/24/23 1011 by Shawanda Hamm RN Incision 09/24/23; 1013; Righ t, upper; chest; Dressing: Polysporin Ointment, Xeroform, 4x4s, Medipore tape. 09/24/23 1013 by Dorita Cole RN Incision 10/09/23; 1342; Left , upper; head 10/09/23 1342 by Aria Riddle RN Incision 10/09/23; 1342; Left ; chest 10/09/23 1342 by Aria Riddle RN EVD (External Ventricular Drain) 10/02/23; 1350; tragus of ear; 10/09/23; 1307 10/02/23 1350 by Daniela Murguia RN 10/09/23 1307 by Sue Pfeiffer RN PIV 10/07/23; 1630; cvkn-vqu-bvbrlq catheter system; 24 gauge, 1.5 in length; brachial vein, left; Ultrasound Guidance; Yes - US guidance used but Image NOT saved; TB; tolerated well, distraction; 10/10/23; 1716 10/07/23 1630 by Dina Mueller RN 10/10/23 1716 by Tatiana Bernardo RN ETT Mask Ventilation: Dayo harley (1); ETT Type: Cuffed, Oral; ETT Size: 7.5 mm; Mac Blade: 4; Notes: Asleep, Pre-O2; Attempts: 1; Laryngoscopy Grade: 2; ETT Placement Verified By: Auscultation, Capnometry; Secured at Teeth: 22 cm; Inserted by: Deirdre Hale CRNA; Removal Date: 10/09/23; Removal Time: 1543 10/09/23 1233 by Leighton Hale CRNA 10/09/23 1543 by Leighton Hale CRNA PIV 10/09/23; 1235; vlyd-eqp-rlqexo catheter system; 20 gauge; cephalic vein (lateral side of arm), right; L [place]; 10/10/23; 17110/09/23 1235 by Leighton Hale CRNA 10/10/23 1716 by Tatiana Bernardo RN Arterial Line 10/09/23; 1258; 10/09/23; 1651 10/09/23 1258 by Leighton Hale CRNA 10/09/23 1651 by Merari Alberts RN documented in this encounter Social History Tobacco Use Types Packs/Day Years Used Date Smoking Tobacco: Never Smokeless Tobacco: Never Alcohol Use Standard Drinks/Week Comments No 0 (1 standard drink = 0.6 oz pur e alcohol) [facility] Utilities Answer Date Recorded In the past 12 months has e electric, gas, oil, or water [employer]pa threatened to shut off services in your [...] [facility] time in the [facility], were you homeless or living in a long-term (including now)? No 09/24/2023 DH IPV Inpatient [...] PM EDT documented as of this encounter OR Notes * Anesthesia Postprocedure Evaluation - Iesha Foley MD - 10/09/2023 4:05 PM EDT Department of Anesthesiology Post-procedure Note Patient: Chapin Costa Procedure Summary Date: 10/09/23 Room / Location: [facility] OR [address] [place] [address] MAIN OR Anesthesia Start: 1222 Anesthesia Stop: 1559 Procedures: @VENTRICULO-PERITONEAL,-PLEURAL,-OTHER SHUNT (WRVU 14.05) (Left: Head) MODIFIER,STEALTH 2,KINEVO STEREOTACTIC COMPUTER-ASSTD NAVIGATIONAL CRANIAL INTRADURAL (WRVU 3.75) Diagnosis: (Hydrocephalus) Surgeons: Rhoda Jimenez MD Responsible Provider: Iesha Foley MD Anesthesia Type: general ASA Status: 3 All Anesthesia Providers: Anesthesiologist: Iesha Foley MD MODEL ENGINE MECHANIC: Leighton Hale CRNA Vitals Value Taken Time BP 118/82 10/09/23 1600 Temp Pulse 75 10/09/23 1604 Resp 20 10/09/23 1604 SpO2 95 % 10/09/23 1604 Pain Level 0 10/09/23 1555 Vitals shown include unfiled device data. Patient Location: PACU/[facility] Level of Consciousness: Conscious but Sleepy Pain Management: Satisfactory Analgesia PONV: None Cardiovascular Status: Hemodynamically Stable Respiratory Status: Stable Respiratory Status and Supplemental O2 (NC or FM) Postoperative Fluid Status: Intravascular EUvolemia Possible Anesthetic Complications: NONE apparent at time of evaluation Final Primary Anesthesia Type: General (The anesthetic type performed was the same as planned.) Comments: Iesha Foley MD, PhD * Anesthesia Preprocedure Evaluation - Iesha Foley MD - 10/09/2023 10:32 AM EDT Pre-Anesthesia Evaluation for: Chapin Costa a 52 y.o. male. Procedure(s): @VENTRICULO-PERITONEAL,-PLEURAL,-OTHER SHUNT (WRVU 14.05) MODIFIER,STEALTH 2,KINEVO STEREOTACTIC COMPUTER-ASSTD NAVIGATIONAL CRANIAL INTRADURAL (WRVU 3.75) Patient Active Problem List Diagnosis Date Noted ??? Small bowel obstruction 07/02/2023 ??? *Shunt malfunction 06/09/2023 ??? Congenital hydrocephalus 05/24/2022 ??? Hydrocephalus 03/08/2020 ??? Seizures 03/23/2019 ??? Cervicalgia 01/22/2017 ??? Headache 01/15/2017 ??? Persistent headaches 01/14/2017 Past Medical History: Diagnosis Date ??? Depression ??? Hearing loss r ear ??? Hydrocephalus associated with congenital aqueduct stenosis ??? Hyperlipidemia ??? Hypertension ??? Memory disorder ??? Seizures ??? Syncope and collapse ??? Vision abnormalities related to hydrocephalus Past Surgical History: Procedure Laterality Date ??? CARPAL TUNNEL RELEASE Right ??? CHOLECYSTECTOMY, LAPAROSCOPIC ??? IR ALL DRAINAGE PROCEDURES 06/18/2023 IR All Drainage Procedures Bentley Arceo MD [facility] INTERVENTIONL RAD ??? PRO ALVEOLOPLASTY W EXTRACTIONS, 4 OR MORE TEETH, PER QUADRANT N/A 10/18/2020 ALVEOPLASTY,IN CONJUNCTION WITH EXTRACTIONS,PER QUADRANT,ENT (WRVU 4.06) performed by Shan Rivero MD at [facility] OSC ??? PRO EXTRACTION, ERUPTED TOOTH OR EXPOSED ROOT N/A 10/18/2020 EXTRACTION, ERUPTED TOOTH OR EXPOSED ROOT (WRVU 0.62) performed by Shan Rivero MD at [facility] OSC ??? PRO IMPACT TOOTH REM BONY W/COMP N/A 10/18/2020 SURGICAL EXTRACTIONS, REMOVAL OF IMPACTED TOOTH, COMPLETELY BONY WITH UNUSUAL SURGICAL COMPLICATIONS (WRVU 2.91) performed by Shan Rivero MD at [facility] OSC ??? PRO IMPACT TOOTH REMOV COMP BONY N/A 10/18/2020 SURGICAL EXTRACTIONS, REMOVAL OF IMPACTED TOOTH, COMPLETELY BONY (WRVU 1.93) performed by Shan Rivero MD at [facility] OSC ??? PRO REMOVAL ERUPTED TOOTH WITH ELEVATION OF MUCOPERIOSTEAL FLAP Bilateral 10/18/2020 SURGICAL EXTRACTIONS REQUIRING ELEVATION OF MUCOPERIOSTEAL FLAP AND REMOVAL OF BONE OR SECTION OF TOOTH (WRVU 1.09) performed by Shan Rivero MD at [facility] OSC ??? PRO REMOVAL, COMPLETE CSF SHUNT, W/O REPLACE Right 06/20/2023 @REMOVAL OF COMPLETE CSF SHUNT, W/O REPLACEMENT (WRVU 7.38) [facility] ??? PRO REMOVAL, COMPLETE CSF SHUNT, W/O REPLACE N/A 09/24/2023 @REMOVAL OF COMPLETE CSF SHUNT, W/O REPLACEMENT (WRVU 7.38) performed by Rhoda Jimenez MD at [facility] OR ??? PRO REPLACEMENT/REVISION, CSF SHUNT Right 06/09/2023 REVISION OR REPLACEMENT CSF SHUNT (WRVU 11.43) performed by Rhoda Jimenez MD at [facility] OR ??? PRO REPLACEMENT/REVISION, CSF SHUNT Right 06/29/2023 REVISION OR REPLACEMENT CSF SHUNT (WRVU 11.43) performed by Rhoda Jimenez MD at [facility] CS ??? PRO RESECT SMALL INTEST, SINGL RESEC/ANAS N/A 07/03/2023 @BOWEL RESECTION, SMALL INTESTINE SINGLE ANASTOMOSIS (WRVU 20.82) performed by Frank Murray MD at [facility] OR ??? PRO STEREOTACTIC CPTR ASSTD PX CRANIAL, INTRADURAL N/A 09/24/2023 STEREOTACTIC COMPUTER-ASSTD NAVIGATIONAL CRANIAL INTRADURAL (WRVU 3.75) performed by Rhoda Jimenez MD at [facility] MAIN OR ??? PRO TWIST HOLE SKULL, IMPLANT CATH/DEVICE 09/24/2023 @TWIST DRILL HOLE, IMPLANT VENTRICULAR OR ICP MONITOR. CATH. (WRVU 4.99) performed by Rhoda Jimenez MD at [facility] OR ??? PRO UNLISTED PROCEDURE NERVOUS SYSTEM Right 05/24/2022 EXPLORATION VENTRICULO-PERITONEAL SHUNT (WRVU 25.48) performed by Rhoda Jimenez MD at [facility] OR ??? PRO VENTRICULO-CISTERNOSTOMY Right 09/24/2023 @VENTRICULOCISTERNOSTOMY (WRVU 22.58) performed by Rhoda Jimenez MD at [facility] OR ??? SHOULDER SURGERY ??? ULNAR TUNNEL RELEASE Right ??? VENTRICULOPERITONEAL SHUNT Multiple revisions - ~46 prior revisions Social History Tobacco Use ??? Smoking status: Never ??? Smokeless tobacco: Never Substance Use Topics ??? Alcohol use: No Social History Substance and Sexual Activity Drug Use No Allergies Allergen Reactions ??? Latex Other reaction(s): hives with latex powdered gloves ??? Penicillins Rash Childhood rash/hive with penicillin. Tolerated amox-clav and amp 05/2023. Tolerated cephalosporins. ??? Tegaderm [Transparent Dressings] Itching and Other (See Comments) Patient needs no sting barrier wipes prior to Tegaderm application. Tolerates Tegaderm dressing post-application of skin barrier without itching/hives per patient. ??? Vancomycin Hives and Itching Other reaction(s): Skin Rash Administering IV Benadryl prior to each Vancomycin dose seems to alleviate the reaction/allergy. ??? Vancomycin Analogues ??? Vancomycin Hcl Medications: MAR and/or home medications have been reviewed. Physical Exam: Preprocedure Vitals Current as of 10/09/23 1032 BP: 96/79 Pulse: 66 Resp: 12 SpO2: 94 Temp: 37.1 ??C (98.7 ??F) Height: 167.6 cm (5' 5.98) (09/24/23) Weight: 83.1 kg (183 lb 4.8 oz) (09/24/23) BMI: 29.6 IBW: 63.8 kg (140 lb 9.2 oz) Last edited 10/09/23 08 by Currently displaying vitals information from multiple entries within 180 minutes of most recent vitals. Airway Assessment: Mallampati: I TM distance: >3 FB Neck ROM: full Cardiovascular Assessment: system normal Pulmonary Assessment: unlabored breathing Dental Assessment: (+) edentulous Misc Assessment: Patient is wearing No contact(s). 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 Plan for GA w/ ETT, PIVx1. Region - Other Informed Consent: Anesthetic plan and risks discussed with patient and mother. Use of blood products discussed with patient and mother who consented to blood products. Plan discussed with MODEL ENGINE MECHANIC. Anesthesia Screening documented in this encounter Plan of Treatment Not on file documented as of this encounter Visit Diagnoses Not on filedocumented in this encounter Administered Medications Inactive Administered Medications - up to 3 most recent administrations Medication Order MAR Action Action Date Dose Rate Site acetaminophen (Ofirmev) (1,000 mg/100 mL) infusion Intravenous, Administer over 15 Minutes, PRN, Starting on Thu10/09/23 at 1253, Until Thu10/09/23 at 1559, Anesthesia Intra-op, Routine Given 10/09/2023 12:53 PM EDT 1,000 mg ceFAZolin (Ancef) (100 mg/mL) injection solution Intravenous, PRN, Starting on Thu10/09/23 at 1251, Until Thu10/09/23 at 1559, Anesthesia Intra-op, Routine Given 10/09/2023 12:51 PM EDT 2 g dexAMETHasone (Decadron) injection Intravenous, PRN, Starting on Thu10/09/23 at 1255, Until Thu10/09/23 at 1559, Anesthesia Intra-op, Routine Given 10/09/2023 12:55 PM EDT 8 mg dexmedeTOMIDine (Precedex) (4 mcg/mL) bolus injection (Anesthsia) Intravenous, PRN, Starting on Thu10/09/23 at 1304, Until Thu10/09/23 at 1559, Anesthesia Intra-op, Routine Given 10/09/2023 2:33 PM EDT 8 mcg Given 10/09/2023 1:25 PM EDT 4 mcg Given 10/09/2023 1:04 PM EDT 4 mcg fentaNYL (pf) (50 mcg/mL) multi-dose injection Intravenous, PRN, Starting on Thu10/09/23 at 1325, Until Thu10/09/23 at 1559, Anesthesia Intra-op, Routine Given 10/09/2023 3:57 PM EDT 25 mcg Given 10/09/2023 2:33 PM EDT 50 mcg Given 10/09/2023 1:25 PM EDT 50 mcg lactated ringers infusion Intravenous, CONTINUOUS PRN, Starting on Thu10/09/23 at 1224, Until Thu10/09/23 at 1559, Anesthesia Intra-op New Bag 10/09/2023 12:24 PM EDT lidocaine (pf) (Xylocaine) (20 mg/mL) 2% injection syringe Intravenous, PRN, Starting on Thu10/09/23 at 1236, Until Thu10/09/23 at 1559, Anesthesia Intra-op, Routine Given 10/09/2023 12:30 PM EDT 100 mg ondansetron (pf) (Zofran) (2 mg/mL) injection Intravenous, PRN, Starting on Thu10/09/23 at 1509, Until Thu10/09/23 at 1559, Anesthesia Intra-op, Routine Given 10/09/2023 3:09 PM EDT 4 mg propofoL (Diprivan) (10 mg/mL) infusion Intravenous, CONTINUOUS PRN, Starting on Thu10/09/23 at 1246, Until Thu10/09/23 at 1559, Anesthesia Intra-op, Routine Rate/Dose Change 10/09/2023 3:19 PM EDT 50 mcg/kg/min 21.45 mL/hr New Bag 10/09/2023 12:46 PM EDT 100 mcg/kg/min 42.9 mL/ hr propofoL (Diprivan) 10 mg/mL bolus injection (Anesthesia) Intravenous, PRN, Starting on Thu10/09/23 at 1231, Until Thu10/09/23 at 1559, Anesthesia Intra-op Given 10/09/2023 1:04 PM EDT 50 mg Given 10/09/2023 12:31 PM EDT 150 mg rocuronium (Zemuron) (10 mg/mL) multi-dose injection Intravenous, PRN, Starting on Thu10/09/23 at 1231, Until Thu10/09/23 at 1559, Anesthesia Intra-op, Routine Given 10/09/2023 2:48 PM EDT 10 mg Given 10/09/2023 2:35 PM EDT 10 mg Given 10/09/2023 2:13 PM EDT 10 mg sugammadex (Bridion) 100 mg/mL injection Intravenous, PRN, Starting on Thu10/09/23 at 1510, Until Thu10/09/23 at 1559, Anesthesia Intra-op, Routine Given 10/09/2023 3:10 PM EDT 170 mg documented in this encounter Care Teams Message Broker Developer Relationship Specialty Start Date End Date Peter Lebron PA Yamel [address] [place] [address] PCP - General Internal Medicine 08/21/22 documented as of this encounter
--- OUTSIDE RECORDS SUMMARY | 2024-02-29 15:40 | XMS_ITS | Encounter Summary ---
[place] [address] Care Team Providers Care Yarn Conditioner Name Role Phone Peter Lebron Primary Care Provider Reason for Referral * Diagnostic Test (Routine) - Closed Specialty Diagnoses / Procedures Referred By Contac t Referred To Contact Radiology Diagnoses Hydrocephalus, unspecified type Procedures CT Head wo Contrast (Generic) Olga Clifton MD [facility] [place] [address] [place] [address] [facility] [place] [address] Referral ID Status Reason Start Date Expiration Date V isits Requested Visits Authorized [id number] Closed Specialty Service Requested 10/10/2023 04/11/2025 1 1 Reason for Visit * Reason Comments Headache * Auth/Cert (Routine) Specialty Diagnoses / Procedures Referred By Contac t Referred To Contact Diagnoses Shunt malfunction Nonintractable headache, unspecified chronicity pattern, unspecified headache type Rhoda Jimenez MD [facility] [place] [address] [place] [address] [facility] Referral ID Status Reason Start Date Expiration Date Visits Re quested Visits Authorized [id number] 1 1 Encounter Details Date Type Department Care Team (Latest Contact Info) Description 09/23/2023 6:13 PM EDT - 10/10/2023 5:38 PM EDT Hospital Encounter Neuro Special Care Unit Level 3 [place] [address] Annita Dhaliwal MD [facility] [place] [address] Rhoda Jimenez MD [facility] [place] [address] Nonintractable headache, unspecified chronicity pattern, unspecified headache type; Chronic migraine without aura without status migrainosus, not intractable; Hydrocephalus, unspecified type Discharge Disposition: Home Social History Tobacco Use Types Packs/Day Years Used Date Smoking Tobacco: Never Smokeless Tobacco: Never Alcohol Use Standard Drinks/Week Comments No 0 (1 standard drink = 0.6 oz pur e alcohol) [facility] Utilities Answer Date Recorded In the past 12 months has th e electric, gas, oil, or water [employer] threatened to shut off services in your [...] place to sleep or slept in a half-way (including now)? No 07/03/2023 Housing Stability Vital Sign Answer Judah e Recorded In the last 12 months, was t here a time when you were not able to pay the mortgage or rent on time? No 09/24/2023 In the past 12 months, how m any times have you moved where you were living? 0 09/24/2023 At any time in the past 12 m [facility], were you homeless or living in a half-way (including now)? No 09/24/2023 DH IPV Inpatient [...] Sign Reading Time Taken Comments Blood Pressure 98/65 10/10/2023 12:00 PM EDT Pulse 78 10/10/2023 2:00 PM EDT Temperature 36.8 ??C (98.3 ??F) 10/10/2023 12:19 PM E DT Respiratory Rate 18 10/10/2023 2:00 PM EDT Oxygen Saturation 92% 10/10/2023 2:00 PM EDT Inhaled Oxygen Concentration - - Weight 83.1 kg (183 lb 4.8 oz) 09/24/2023 2:36 A M EDT Height 167.6 cm (5' 5.98) 09/24/2023 2:36 AM ED T Body Mass Index 29.6 09/24/2023 2:36 AM EDT documented in this encounter Discharge Summaries * Mirian Murrieta PA - 10/10/2023 5:38 PM EDT Images from the original note were not included. Neurosurgery Discharge Summary Patient Name: Chapin Costa Patient Age: 52 y.o. Birthdate: 1970 Admit date: 09/23/2023 Discharge date: 10/11/2023 Attending Physician: Bhumi att. providers found Discharge Diagnoses: TUBE TEST TECHNICIAN infection Operations/Major Procedures: Procedure(s): @VENTRICULO-PERITONEAL,-PLEURAL,-OTHER SHUNT (WRVU 14.05) MODIFIER,STEALTH 2,KINEVO STEREOTACTIC COMPUTER-ASSTD NAVIGATIONAL CRANIAL INTRADURAL (WRVU 3.75) 10/09/2023 Procedure(s): @VENTRICULO-PERITONEAL,-PLEURAL,-OTHER SHUNT (WRVU 14.05) MODIFIER,STEALTH 2,KINEVO STEREOTACTIC COMPUTER-ASSTD NAVIGATIONAL CRANIAL INTRADURAL (WRVU 3.75) 10/09/2023 History of Presentation: The below history was copied from the patient's H+P Chapin Costa is a 52 y.o. 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 Now coming in with 3 days of fevers, headaches, and tenderness over the shunt valve behind the right ear. No drainage. No other infectious symptoms. Hospital Course: [place] [facility] [place] to the [place] and subsequently underwent VPS explantation with R EVD placement on 09/24/23. TUBE TEST TECHNICIAN and blood cultures were sent and monitored with antibiotic treatment guided per ID. EVD was dislodged and replaced 10/02/23 without complication. After cultures demonstrated NGTD and 2 week course of vancomycin was completed, he underwent removal of R frontalEVD with placement of L occipital ventriculopleural shunt (Certas valve set at 1) on 10/09/23. He tolerated the surgery well. Post op XR shunt series confirmed placement and setting. CTH noted ventricles near baseline size. Post-operatively, he remained afebrile, with stable vital signs. Today, on POD# 1 he has met all criteria for discharge home: his pain is well controlled with medications by mouth, he is tolerating aregular diet, is voiding spontaneously without difficulties, and is up and ambulating without complications. He has been deemed safe for discharge to home. Patient Active Problem List Diagnosis Code Persistent headaches R51.9 Headache R51.9 Cervicalgia M54.2 Seizures R56.9 Hydrocephalus G91.9 Congenital hydrocephalus Q03.9 Shunt malfunction T85.618A Small bowel obstruction K56.609 EXAM: Vital Signs at Discharge: Weight: Wt Readings from Last 1 Encounters: 09/24/23 83.1 kg (183 lb 4.8 oz) Height: Ht Readings from Last 1 Encounters: 09/24/23 167.6 cm (5' 5.98) BMI: Body mass index is 29.6 kg/m??. Last value Range last 24 hrs Temperature Temp: 36.8 ??C (98.3 ??F) Temp: [36.8 ??C (98.3 ??F)-37 ??C (98.6 ??F)] Heart Rate Heart Rate: 78 Heart Rate: [58-78] Blood Pressure BP: 98/65 BP: (98-125)/(65-83) Respiratory Rate Resp: 18 Resp: [12-18] SpO2 SpO2: 92 % SpO2: [92 %-97 %] Pending Studies and Lab Data: none Discharge Condition: Good Discharge to: Home Discharge Medications: Your Medications New Medications Dose Details melatonin 3 mg tablet Take 1 tablet by mouth nightly as needed. 3 mg Refills: 0 oxyCODONE 5 mg tablet Commonly known as: Roxicodone Take 1 tablet by mouth every 4 hours as needed for Pain. 5 mg Quantity: 20 tablet Refills: 0 pantoprazole EC [address] tablet Commonly known as: Protonix Take 1 tablet by mouth daily. Replaces: omeprazole [address] capsule 40 mg Quantity: 90 tablet Refills: 3 sodium chloride 1 gram Tablet Take 1 tablet by mouth 3 times daily. 1 g Quantity: 30 tablet Refills: 3 Continued medications with new dosing Dose Details cyanocobalamin (Vitamin B-12) 1,000 mcg tablet Commonly known as: Vitamin B-12 Take 1,000 mcg by mouth daily. What changed: Another medication with the same name was removed. Continue taking this medication, and follow the directions you see here. 1,000 mcg Refills: 0 topiramate 25 mg tablet Commonly known as: Topamax Take 1 tablet by mouth 2 times daily. What changed: when to take this 25 mg Quantity: 60 tablet Refills: 5 Continued medications, unchanged Dose Details Aimovig Autoinjector 70 mg/mL Auto-Injector Inject 70 mg as directed every 30 days. On the of every month Generic drug: erenumab-aooe 70 mg Refills: 0 ARIPiprazole 10 mg tablet Commonly known as: Abilify Take 10 mg by mouth daily. 10 mg Refills: 0 atorvastatin 40 mg tablet Commonly known as: Lipitor Take 40 mg by mouth daily. 40 mg Refills: 0 calcium-vitamin D3 600 mg calcium- 400 unit Tablet Take 1 tablet by mouth daily. 1 tablet Refills: 0 * hydrOXYzine 25 mg tablet Commonly known as: Atarax Take 12.5 mg by mouth every 6 hours as needed for Anxiety. 12.5 mg Refills: 0 * hydrOXYzine 25 mg tablet Commonly known as: Atarax Take 25 mg by mouth nightly as needed (Insomnia). 25 mg Refills: 0 levothyroxine 25 mcg tablet Commonly known as: Synthroid Take 25 mcg by mouth nightly. 25 mcg Refills: 0 metoprolol succinate XL 25 mg ER 24 hr tablet Commonly known as: Toprol-XL Take 25 mg by mouth daily. 25 mg Refills: 0 senna-docusate 8.6-50 mg Tablet Commonly known as: Pericolace Take 2 tablets by mouth 2 times daily as needed for Constipation. 2 tablet Quantity: 60 tablet Refills: 0 sertraline 100 mg tablet Commonly known as: Zoloft Take 150 mg by mouth daily. 150 mg Refills: 0 testosterone cypionate 200 mg/mL Oil injection Commonly known as: Depo-TESTOSTERONE Inject 250 mg into the muscle every 14 days. 250 mg Refills: 0 * This list has 2 medication(s) that are the same as other medications prescribed for you. Read thedirections carefully, and ask your doctor or other care provider to review them with you. STOPPED Medications acetaminophen 500 mg tablet Commonly known as: Tylenol calcium carbonate 200 mg calcium (500 mg) chewable tablet Commonly known as: TUMS omeprazole [address] capsule Commonly known as: PriLOSEC Replaced by: pantoprazole EC [address] tablet polyethylene glycoL 17 gram oral powder packet Commonly known as: Miralax rizatriptan 10 mg tablet Commonly known as: Maxalt Updated Allergies/ADRs: Allergies Allergen Reactions Latex Other reaction(s): hives with latex powdered gloves Penicillins Rash Childhood rash/hive with penicillin. Tolerated amox-clav and amp 05/2023. Tolerated cephalosporins. Tegaderm [Transparent Dressings] Itching and Other (See Comments) Patient needs no sting barrier wipes prior to Tegaderm application. Tolerates Tegaderm dressing post-application of skin barrier without itching/hives per patient. Vancomycin Hives and Itching Other reaction(s): Skin Rash Administering IV Benadryl prior to each Vancomycin dose seems to alleviate the reaction/allergy. Vancomycin Analogues Vancomycin Hcl Instructions Given to Patient at Discharge: Patient Instructions VENTRICULOPERITONEAL SHUNT DISCHARGE INSTRUCTIONS PRESCRIPTION INSTRUCTIONS: Please see the medication reconciliation list on this discharge summary for a current list of your medications. The following medications are commonly prescribed after surgery. An [x] indicates that these medications have been prescribed for you. [x] Opioids - Pain relief: medications such as Roxicodone (oxycodone) or Dilaudid (hydromorphone) Opioids are commonly prescribed after surgery for severe pain. DO NOT use alcohol, drive, or operate heavy machinery while taking these medications. These medications may cause constipation. [x] Stool softeners - Constipation relief: medications such as docusate or senakot Stool softeners are commonly used after surgery to help make stools easier to pass. These medications can be obtained [id number] and their use is recommended on an as needed basis for hard or difficult stools. They should be discontinued for loose stools and diarrhea. WHEN TO SEEK MEDICAL CARE: Abdominal pain Signs or symptoms of an infection -Fever over 101??F -Redness, swelling, or increasing pain around your incision -Drainage of pus, blood, or clear fluid from your incision New neurologic symptoms -Worsening headaches not controlled with your pain medication -Drowsiness, confusion, and lethargy -Difficulty speaking or slurred speech -New weakness or sensory changes -New unsteadiness when walking -Visual changes -Facial droop -Seizures Nausea/vomiting not controlled with anti-nausea medication Constipation not relieved by diet and over the counter stool softeners and laxatives Symptoms of a deep venous thrombosis (DVT) or pulmonary embolism (PE): -Swelling/warmth/redness of the leg -Pain in the leg, which can be worse with standing or walking -Chest pain or shortness of breath To help prevent a DVT: -Exercise regularly. Walking, at least several times daily, is helpful. -Ankle pump exercises (like pressing and releasing the gas pedal) should be done regularly. -Keep hydrated with water or other clear liquids (coffee/tea/cola can dehydrate you). -Avoid alcohol and crossing your legs. -Remember not to sit or lay in bed, while awake, for prolonged amounts of time. WOUND CARE: - Keep incisional site clean and dry. - You can remove your dressings 2 days after surgery, if not removed prior to discharge. - You may shower and shampoo incisional site 4 days after surgery. DO NOT SOAK in water, stand consistently under shower stream, soak in tub, etc. DIET: - You may resume your usual diet. - A well-balanced diet is recommended for wound healing. - Prune juice or prunes can be added to your diet to assist with any constipation. ACTIVITY: - You may increase your activities as tolerated. - Restrict strenuous activity (such as running, jumping, jogging, shoveling, etc.) until cleared byyour surgical team. - It is not uncommon to have tenderness along the side of your neck and in the front of your chest (on the side of the shunt valve where the catheter was tunneled). Avoid bending and twisting your neck and try not to push or pull with your arm since these movements can cause more pain and discomfort (small movements as tolerated will help prevent stiffness) FOLLOW UP PLAN: No future appointments. Incision: [x] Please follow up for suture/staple removal in 10-14 days with the Neurosurgery PENSION ADVISER/RN. You will have (2) separate appointments for suture/staple removal for all the following: - R side of head head and upper chest (Nylon) - R frontal head (isabella) - L side of head and chest (Nylon) Appointments: [x] Please follow up in the Neurosurgery Clinic in 4-6 weeks. Please call the Neurosurgery Office at [phone] if you do not receive a scheduled appointment within two weeks. Your follow-up appointment will be with: [x] Dr. Jimenez Imaging: [] No Imaging required at follow-up. [x] Head CT [] XR Shunt series HOW TO REACH NEUROSURGERY Office Hours (Thursday through Thursday 8am-5pm): Call On weekends or after office hours (after 5pm or before 8am): Call [phone] and ask the van owner operator to page the Neurosurgery Resident/Advanced Practice Provider design consultant. *Your surgeon may not be manager call (especially after office hours or on the weekend) so be ready totell about yourself and your surgery when you call. General Instructions None Future Appointments and Orders Future Orders Complete By Expires CT Head wo Contrast (Generic) [[id number] Custom] 11/10/2023 (Approximate) 05/11/2024 Process Instructions: Scheduling Instructions: Questions: Where will study be performed?: [facility] Radiology To be scheduled: Ordering department to coordinate scheduling Reason for exam and clinical history: s/p L v-pleural shunt Stat read required?: Does patient require sedation?: Sedation rationale: Scheduled Appointments: No future appointments. Primary Care Doctor: MARVA Gordon [phone] Signed: MARVA Reeves 10/11/2023 documented in this encounter Discharge Instructions * Patient Instructions* Olga Clifton MD - 10/10/2023 5:12 PM EDT VENTRICULOPERITONEAL SHUNT DISCHARGE INSTRUCTIONS PRESCRIPTION INSTRUCTIONS: Please see the medication reconciliation list on this discharge summary for a current list of your medications. The following medications are commonly prescribed after surgery. An [x] indicates that these medications have been prescribed for you. [x] Opioids - Pain relief: medications such as Roxicodone (oxycodone) or Dilaudid (hydromorphone) Opioids are commonly prescribed after surgery for severe pain. DO NOT use alcohol, drive, or operate heavy machinery while taking these medications. These medications may cause constipation. [x] Stool softeners - Constipation relief: medications such as docusate or senakot Stool softeners are commonly used after surgery to help make stools easier to pass. These medications can be obtained [id number]-bmxxlsi and their use is recommended on an as needed basis for hard or difficult stools. They should be discontinued for loose stools and diarrhea. WHEN TO SEEK MEDICAL CARE: Abdominal pain Signs or symptoms of an infection -Fever over 101??F -Redness, swelling, or increasing pain around your incision -Drainage of pus, blood, or clear fluid from your incision New neurologic symptoms -Worsening headaches not controlled with your pain medication -Drowsiness, confusion, and lethargy -Difficulty speaking or slurred speech -New weakness or sensory changes -New unsteadiness when walking -Visual changes -Facial droop -Seizures Nausea/vomiting not controlled with anti-nausea medication Constipation not relieved by diet and over the counter stool softeners and laxatives Symptoms of a deep venous thrombosis (DVT) or pulmonary embolism (PE): -Swelling/warmth/redness of the leg -Pain in the leg, which can be worse with standing or walking -Chest pain or shortness of breath To help prevent a DVT: -Exercise regularly. Walking, at least several times daily, is helpful. -Ankle pump exercises (like pressing and releasing the gas pedal) should be done regularly. -Keep hydrated with water or other clear liquids (coffee/tea/cola can dehydrate you). -Avoid alcohol and crossing your legs. -Remember not to sit or lay in bed, while awake, for prolonged amounts of time. WOUND CARE: - Keep incisional site clean and dry. - You can remove your dressings 2 days after surgery, if not removed prior to discharge. - You may shower and shampoo incisional site 4 days after surgery. DO NOT SOAK in water, stand consistently under shower stream, soak in tub, etc. DIET: - You may resume your usual diet. - A well-balanced diet is recommended for wound healing. - Prune juice or prunes can be added to your diet to assist with any constipation. ACTIVITY: - You may increase your activities as tolerated. - Restrict strenuous activity (such as running, jumping, jogging, shoveling, etc.) until cleared byyour surgical team. - It is not uncommon to have tenderness along the side of your neck and in the front of your chest (on the side of the shunt valve where the catheter was tunneled). Avoid bending and twisting your neck and try not to push or pull with your arm since these movements can cause more pain and discomfort (small movements as tolerated will help prevent stiffness) FOLLOW UP PLAN: No future appointments. Incision: [x] Please follow up for suture/staple removal in 10-14 days with the Neurosurgery PENSION ADVISER/RN. You will have (2) separate appointments for suture/staple removal for all the following: - R side of head head and upper chest (Nylon) - R frontal head (isabella) - L side of head and chest (Nylon) Appointments: [x] Please follow up in the Neurosurgery Clinic in 4-6 weeks. Please call the Neurosurgery Office at [phone] if you do not receive a scheduled appointment within two weeks. Your follow-up appointment will be with: [x] Dr. Jimenez Imaging: [] No Imaging required at follow-up. [x] Head CT [] XR Shunt series HOW TO REACH NEUROSURGERY Office Hours (Thursday through Thursday 8am-5pm): Call On weekends or after office hours (after 5pm or before 8am): Call [phone] and ask the van owner operator to page the Neurosurgery Resident/Advanced Practice Provider design consultant. *Your surgeon may not be manager call (especially after office hours or on the weekend) so be ready totell about yourself and your surgery when you call. documented in this encounter Medications at Time of Discharge [...] 0 05/03/2018 documented as of this encounter Progress Notes * Tatiana Bernardo RN - 10/10/2023 5:35 PM EDT OUTCOME EVALUATION NOTE: OUTCOME SUMMARY: Pt I&O, Labs, VS monitored throughout shift. PT to evaluate pt prior to dc, see note. Pt DC instructions reviewed, questions answered, Iv's removed all belongings sent home with pt. PLAN MOVING FORWARD: DC home * Missy Martell, PT - 10/10/2023 3:00 PM EDT Physical Therapy Evaluation Patient profile: Per Neurosurgery note: Chapin Costa is a 52 y.o. 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 Now admitted due to c/f shunt malfunction/infection. Please see EMR forcomplete PMHx. Patient with the following active problems: Past Medical History: Diagnosis Date Depression Hearing loss r ear Hydrocephalus associated with congenital aqueduct stenosis Hyperlipidemia Hypertension Memory disorder Seizures Syncope and collapse Vision abnormalities related to hydrocephalus Past Surgical History: Procedure Laterality Date CARPAL TUNNEL RELEASE Right CHOLECYSTECTOMY, LAPAROSCOPIC IR ALL DRAINAGE PROCEDURES 06/18/2023 IR All Drainage Procedures Bentley Arceo MD [facility] INTERVENTIONL RAD PRO ALVEOLOPLASTY W EXTRACTIONS, 4 OR MORE TEETH, PER QUADRANT N/A 10/18/2020 ALVEOPLASTY,IN CONJUNCTION WITH EXTRACTIONS,PER QUADRANT,ENT (WRVU 4.06) performed by Shan Rivero MD at [facility] OSC PRO EXTRACTION, ERUPTED TOOTH OR EXPOSED ROOT N/A 10/18/2020 EXTRACTION, ERUPTED TOOTH OR EXPOSED ROOT (WRVU 0.62) performed by Shan Rivero MD at [facility] OSC PRO IMPACT TOOTH REM BONY W/COMP N/A 10/18/2020 SURGICAL EXTRACTIONS, REMOVAL OF IMPACTED TOOTH, COMPLETELY BONY WITH UNUSUAL SURGICAL COMPLICATIONS (WRVU 2.91) performed by Shan Rivero MD at [facility] OSC PRO IMPACT TOOTH REMOV COMP BONY N/A 10/18/2020 SURGICAL EXTRACTIONS, REMOVAL OF IMPACTED TOOTH, COMPLETELY BONY (WRVU 1.93) performed by Shan Rivero MD at [facility] OSC PRO REMOVAL ERUPTED TOOTH WITH ELEVATION OF MUCOPERIOSTEAL FLAP Bilateral 10/18/2020 SURGICAL EXTRACTIONS REQUIRING ELEVATION OF MUCOPERIOSTEAL FLAP AND REMOVAL OF BONE OR SECTION OF TOOTH (WRVU 1.09) performed by Shan Rivero MD at [facility] OSC PRO REMOVAL, COMPLETE CSF SHUNT, W/O REPLACE Right 06/20/2023 @REMOVAL OF COMPLETE CSF SHUNT, W/O REPLACEMENT (WRVU 7.38) [facility]OVAL, COMPLETE CSF SHUNT, W/O REPLACE N/A 09/24/2023 @REMOVAL OF COMPLETE CSF SHUNT, W/O REPLACEMENT (WRVU 7.38) [facility] REPLACEMENT/REVISION, CSF SHUNT Right 06/09/2023 REVISION OR REPLACEMENT CSF SHUNT (WRVU 11.43) performed by Rhoda Jimenez MD at [facility] MAIN OR PRO REPLACEMENT/REVISION, CSF SHUNT Right 06/29/2023 REVISION OR REPLACEMENT CSF SHUNT (WRVU 11.43) performed by Rhoda Jimenez MD at [facility] CSI PRO RESECT SMALL INTEST, SINGL RESEC/ANAS N/A 07/03/2023 @BOWEL RESECTION, SMALL INTESTINE SINGLE ANASTOMOSIS (WRVU 20.82) performed by Frank Murray MD at [facility] MAIN OR PRO STEREOTACTIC CPTR ASSTD PX CRANIAL, INTRADURAL N/A 09/24/2023 STEREOTACTIC COMPUTER-ASSTD NAVIGATIONAL CRANIAL INTRADURAL (WRVU 3.75) performed by Rhoda Jimenez MD at [facility] MAIN OR PRO TWIST HOLE SKULL, IMPLANT CATH/DEVICE 09/24/2023 @TWIST DRILL HOLE, IMPLANT VENTRICULAR OR ICP MONITOR. CATH. (WRVU 4.99) performed by Rhoda Jimenez MD at [facility] MAIN OR PRO UNLISTED PROCEDURE NERVOUS SYSTEM Right 05/24/2022 EXPLORATION VENTRICULO-PERITONEAL SHUNT (WRVU 25.48) performed by Rhoda Jimenez MD at [facility] MAIN OR PRO VENTRICULO-CISTERNOSTOMY Right 09/24/2023 @VENTRICULOCISTERNOSTOMY (WRVU 22.58) performed by Rhoda Jimenez MD at [facility] OR SHOULDER SURGERY ULNAR TUNNEL RELEASE Right VENTRICULOPERITONEAL SHUNT Multiple revisions - ~46 prior revisions Active Non-Hospital Problems Diagnosis Small bowel obstruction Congenital hydrocephalus Hydrocephalus Seizures Cervicalgia Headache Persistent headaches Social History: Home set-up: Pt lives in a handicapped accessible 3rd floor apartment with elevator access Bathroom Set-up: Tub shower with grab bars Stairs: Pt typically uses elevator but he does have stairs as well with 2 rails Baseline Mobility: Pt was previously independent with all functional mobility without an AD, typically walks everywhere to get groceries, and to walk his dog in the park. Pt does have a caregiver whowill be coming in all day MF and then partial days /Th. Pt's mother checks in on him periodically and lives 8 minutes away. Equipment at home: none Fall history: Pt denies hx of falls Other: Pt is on disability and does not work. Precautions/Special Considerations: Full code, Per Pt's mother Pt has short term memory issues Lines: PIV on R +L UE Activity Orders: Diet: Regular Mobility and Positioning Recommendations: Pt. to utilize SBA and for ambulation with nursing. Please encourage up to chair for meal times as able. Pt encouraged to ambulate frequently with staff, getting into the bathroom for toileting and walking out in the luna >/= 3 times daily as able. Subjective: ???I don't have any trouble on the stairs?? Objective: Pt seen for evaluation today. Pt found resting in bed upon arrival, is pleasant and cooperative and agrees to work with PT/OT. Pt's mother is present, supportive and able to provide additional subjective hx. Pain: Pt denies any pain currently Vital Signs: Pre-Activity: Pt resting in bed HR: 76bpm SpO2: 94% on RA Mental Status: Pt alert and oriented to self, did not complete full AO questions Vision: Pt wears glasses Skin: WFL, no obvious wounds, rashes, ulcerations, full head-to-toe assessment not completed Musculoskeletal: ROM: BUE and BLE WFL based on gross movement observation Strength: BUE and BLE at least >=3/5 based on gross movement observation Sensation: NT Bed Mobility: HOB elevated approx 40deg Supine to Sit: Independent Sit to Supine: Independent Transfers: Sit to Stand: Independent Stand to Sit: Independent Bed to Chair: NT Gait: Distance: 80ft Device used: None Level of assist: Close supervision to independent Gait mechanics: Pt has typical gait mechanics, reciprocal gait pattern with slightly externally rotated hips. Pt has no LOB or balance impairments while ambulating. Stairs: Pt able to ascend/descend 5 stairs with close supervision. Pt uses rail on the R for ascentand B rails for descent. Pt performs reciprocal step over step pattern on the stairs and has no LOB. Balance: Sitting Static: Good Sitting Dynamic: Good Standing Static: Good Standing Dynamic / Gait: Good Education: patient has been educated on Gait and Discharge planning and verbalizes and demonstratesunderstanding. Patient status, treatment, and mobility recommendations discussed with nursing. Assessment: Chapin Costa was seen today for physical therapy evaluation. Patient presents ator close to his prior level of function in terms of bed mobility, transfers, ambulation and stair negotiation. Pt was able to ambulate with stand by assist as well as negotiate 5 stairs without difficulty, and Pt was steady both ambulating in the luna and on the stairs. Prior to admission Pt was independent with mobility and living alone independently. Pt is well supported at home and has caregiver who comes in every day of the week and his mother also comes and checks on him periodically. Pt and Pt's guardian do not have any concerns regarding Pt being able to return home. Recommend once Pt is medically ready for discharge he return home with support from his mother/associate professor of geology. Pt has no other inpatient PT or DME needs. Inpatient Physical Therapy Plan: evaluation only Discharge Recommendations: Based on current findings- home Consult Recommendations: No other consults recommended at this time. Equipment needs: None PT Evaluation Code Rationale: Diagnosis & Pertinent Co-Morbidities, personal factors, and present illness affecting Plan of Care: (see above); Additional personal factors or co- morbidities that impact plan: Total # of Factors: 0 1-2 3+ x Examination of body system impairments, functional limitations and behaviors, and/or participation restrictions. Addressing 1-2 elements Addressing 3 + elements x Addressing 4 + elements Clinical presentation: See assessment above. Stable/Uncomplicated Evolving/Fluctuating Symptoms Unstable/Unpredictable x Clinical decision making of low complexity based on pt's functional performance as outlined in thisevaluation. Time IN / OUT: 1500/1515 Total Time: 15 minutes; Lito Martell PT Pager: [phone] Physical Therapy Inpatient Rehabilitation Department * Maegan Almendarez, OT - 10/10/2023 3:00 PM EDT Occupational Therapy Evaluation Patient profile: Chapin Costa is a 52 y.o. 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 Neurosurgical Procedures this Admission: 10/09/23, Dr. Jimenez: Removal of R frontal EVD; Left occipital ventriculopleural shunt placement, Certas valve at 1 09/24/23, Dr. Jimenez: VPS explantation, R EVD placement Past Medical History: Diagnosis Date Depression Hearing loss r ear Hydrocephalus associated with congenital aqueduct stenosis Hyperlipidemia Hypertension Memory disorder Seizures Syncope and collapse Vision abnormalities related to hydrocephalus Past Surgical History: Procedure Laterality Date CARPAL TUNNEL RELEASE Right CHOLECYSTECTOMY, LAPAROSCOPIC IR ALL DRAINAGE PROCEDURES 06/18/2023 IR All Drainage Procedures Bentley Arceo MD [facility] INTERVENTIONL RAD PRO ALVEOLOPLASTY W EXTRACTIONS, 4 OR MORE TEETH, PER QUADRANT N/A 10/18/2020 ALVEOPLASTY,IN CONJUNCTION WITH EXTRACTIONS,PER QUADRANT,ENT (WRVU 4.06) performed by Shan Rivero MD at [facility] OSC PRO EXTRACTION, ERUPTED TOOTH OR EXPOSED ROOT N/A 10/18/2020 EXTRACTION, ERUPTED TOOTH OR EXPOSED ROOT (WRVU 0.62) performed by Shan Rivero MD at [facility] OSC PRO IMPACT TOOTH REM BONY W/COMP N/A 10/18/2020 SURGICAL EXTRACTIONS, REMOVAL OF IMPACTED TOOTH, COMPLETELY BONY WITH UNUSUAL SURGICAL COMPLICATIONS (WRVU 2.91) performed by Shan Rivero MD at [facility] OSC PRO IMPACT TOOTH REMOV COMP BONY N/A 10/18/2020 SURGICAL EXTRACTIONS, REMOVAL OF IMPACTED TOOTH, COMPLETELY BONY (WRVU 1.93) performed by Shan Rivero MD at [facility] OSC PRO REMOVAL ERUPTED TOOTH WITH ELEVATION OF MUCOPERIOSTEAL FLAP Bilateral 10/18/2020 SURGICAL EXTRACTIONS REQUIRING ELEVATION OF MUCOPERIOSTEAL FLAP AND REMOVAL OF BONE OR SECTION OF TOOTH (WRVU 1.09) performed by Shan Rivero MD at [facility] OSC PRO REMOVAL, COMPLETE CSF SHUNT, W/O REPLACE Right 06/20/2023 @REMOVAL OF COMPLETE CSF SHUNT, W/O REPLACEMENT (WRVU 7.38) [facility] REMOVAL, COMPLETE CSF SHUNT, W/O REPLACE N/A 09/24/2023 @REMOVAL OF COMPLETE CSF SHUNT, W/O REPLACEMENT (WRVU 7.38) [facility]PLACEMENT/REVISION, CSF SHUNT Right 06/09/2023 REVISION OR REPLACEMENT CSF SHUNT (WRVU 11.43) performed by Rhoda Jimenez MD at [facility] MAIN OR PRO REPLACEMENT/REVISION, CSF SHUNT Right 06/29/2023 REVISION OR REPLACEMENT CSF SHUNT (WRVU 11.43) performed by Rhoda Jimenez MD at [facility] CSI PRO RESECT SMALL INTEST, SINGL RESEC/ANAS N/A 07/03/2023 @BOWEL RESECTION, SMALL INTESTINE SINGLE ANASTOMOSIS (WRVU 20.82) performed by Frank Murray MD at [facility] MAIN OR PRO STEREOTACTIC CPTR ASSTD PX CRANIAL, INTRADURAL N/A 09/24/2023 STEREOTACTIC COMPUTER-ASSTD NAVIGATIONAL CRANIAL INTRADURAL (WRVU 3.75) performed by Rhoda Jimenez MD at [facility] MAIN OR PRO TWIST HOLE SKULL, IMPLANT CATH/DEVICE 09/24/2023 @TWIST DRILL HOLE, IMPLANT VENTRICULAR OR ICP MONITOR. CATH. (WRVU 4.99) performed by Rhoda Jimenez MD at [facility] MAIN OR PRO UNLISTED PROCEDURE NERVOUS SYSTEM Right 05/24/2022 EXPLORATION VENTRICULO-PERITONEAL SHUNT (WRVU 25.48) performed by Rhoda Jimenez MD at [facility] OR PRO VENTRICULO-CISTERNOSTOMY Right 09/24/2023 @VENTRICULOCISTERNOSTOMY (WRVU 22.58) performed by Rhoda Jimenez MD at [facility] OR SHOULDER SURGERY ULNAR TUNNEL RELEASE Right VENTRICULOPERITONEAL SHUNT Multiple revisions - ~46 prior revisions Social History: Patient lives alone with his dog.His mom (guardian) lives ~4 miles away Home Setup: 3rd floor apartment w/ elevator access, has a tub shower w/ a grab bar DME: grab bars Baseline ADL/Mobility: Pt was independent w/ ADL's and most IaDL's. He has a care provider (will have a new one starting Mon), who comes Most of day Mon and Fri and part of the day Tues and Thurs. His mom also checks in regularly. He does not work (disabled). He walks to the grocery store/vet office, etc all within 4 blocks or so. Per his mom, he has issues with his short-term memory. He uses pill packs for medications. Precautions/Special Considerations: at risk to fall, has a legal guardian Subjective: I feel ready. Objective: Seen today for OT evaluation. Mom/guardian was present. Cognitive Status/Behavior: Behavior / Mood: alert and cooperative Alert and oriented to: person, place, date, month, year, day of week, time of day, and situation Follows commands: 1 step and 100% of the time Attention: WFL Safety awareness: WFL H/o poor STM Vision & Perception: Reports he sometimes wears glasses, h/o strabismus Denies new vision impairments Communication: WFL Range of motion, strength, coordination: Hand dominance: right Bilateral UEs are within functional limitations LE limitations: grossly WFL Activities of Daily Living: Self-feeding: independent Grooming: independent Dressing: able to reach his feet to don/doff socks without difficulty Bathing: able to complete stall shower transfer w/ supervision, then division engineer place w/ hands over head and eyes closed w/o LOB Toileting: Transfer:independent Hygiene: denies difficulty Functional Mobility: Supine to sit: supervision Sit to stand: supervision Ambulation: pt ambulated ~70' with no device, SBA, no LOB He climbed up/down 4 steps w/ railing (see PT note for details) Stand to sit: supervision Sit to supine: independent Balance: Sitting balance: good Standing balance:good Vitals: HR: 70's bpm Sp02: 95 % on RA Pain: no c/o pain Skin: EVD/crani incision, otherwise not assessed Education: Patient and his mom were educated on Role of occupational therapy/rehabilitation, Transfers, ADL, Positioning, Functional Mobility, Home Management, and Discharge planning and they verbalize understanding. Patient status, treatment, and mobility recommendations discussed with nursing. Assessment: Pt was seen for occupational therapy evaluation. Chapin Costa presents s/p replacement of WIND 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 and EVD removal. He is mildly deconditioned from his baseline, but demonstrating the ability to manage his ADL's and mobilize safely. He does live alone but his mom lives ~4 blocks away from him and he has a caregiver that will be there starting Thursday. He appears close to his recent functional baseline. Anticipate that pt will return home with assistance once medically ready. Do not anticipate further OT needs while hospitalized. Equipment Recommendations: Equipment Needs Upon Discharge (OT): None Anticipated Discharge Disposition (OT): home with daily check in (has personal care providers) Other Recommendations: Ambulate as tolerated without a device. Encourage participation in ADL's by providing set up A on tray table and physical assist only as needed. Other Recommendations: No other consults recommended at this time Plan: OT: Therapy Frequency (OT): evaluation only Total Minutes, Occupational Therapy: 12 (initial evaluation, 15:00-15:12) OT Evaluation Code Rationale: Diagnosis & Pertinent Co-Morbidities affecting Plan of Care: see PMHx Occupational Profile & Client History: Brief Expanded Extensive x Assessment of Occupational Performance: 1-3 performance deficits x 3-5 performance deficits 5 + performance deficits Clinical Decision Making: Low Moderate High x Clinical decision making of low complexity using standardized patient assessment instrument and measurable assessment of functional outcome. Pager: [phone] MAEGAN ALMENDAREZ OT 10/10/2023 Occupational Therapy Rehabilitation Department * Rafia Simpson - 10/10/2023 1:13 PM EDT Nutrition Services Note - Low Nutrition Acuity Chapin Costa is a 52 y.o. male Reason for intervention: follow up Nutrition Plan Continue Diet Plan Encourage good PO Monitor Weight Chapin Costa was scheduled for a f/u nutrition evaluation. Editor In Chief Newspaper met with pt at bedside. This was day 1 off of NPO per documentation pt ate 100% of breakfast and sign writer hand observed that pt had just finished all of his lunch. He shared that his appetite was so-so. Per documentation pt has good PO intakes recorded at 50%-75% on the 4 days prior to NPO. According to dining services software they have ordered an average ~2037 kcals/day and ~78g protein/day for the same time period. Please update and trend weights to allow for ongoing assessment of weight changes. Clinical Nutrition to monitor and follow. Active Orders Diet Regular diet Frequency: Effective Now Number of Occurrences: Until Specified Admit Weight: 81.65 kg Estimated body mass index is 29.6 kg/m?? as calculated from the following: Height as of this encounter: 167.6 cm (5' 5.98). Weight as of this encounter: 83.1 kg (183 lb 4.8 oz). Wt Readings from Last 5 Encounters: 09/24/23 83.1 kg (183 lb 4.8 oz) 10/09/23 83.1 kg (183 lb 3.2 oz) 08/13/23 86.9 kg (191 lb 9.6 oz) 07/23/23 85.3 kg (188 lb) 07/15/23 84.8 kg (186 lb 14.4 oz) Weight loss: not clinically significant Appetite: Good (50%-75%) Food allergies:no known food allergies Chewing/Swallowing difficulty: none Nausea/Vomiting: no nausea and no vomiting Last Bowel Movement: 10/06/23 Patient education / questions: all nutrition related questions answered at this time Nutrition services to follow weekly through hospital course unless consulted in the interim. Rafia Simpson Substance Abuse Technician * Olga Clifton MD - 10/10/2023 6:50 AM EDT [facility] NEUROSURGERY PROGRESS NOTE ID: Chapin Costa 52 y.o. male : 1970 LOS: 17 Neurosurgical Procedures this Admission: 10/09/23, Dr. Jimenez: Removal of R frontal EVD; Left occipital ventriculopleural shunt placement, Certas valve at 1 09/24/23, Dr. Jimenez: VPS explantation, R EVD placement INTERVAL Hx: -XRSS & CTH complete, appears intact and vents near baseline -Neuro baseline -No complaints -Needs to mobilize MEDICATIONS: Scheduled Meds: sodium chloride 1 g Oral TID hydrOXYzine 25 mg Oral Nightly levothyroxine 25 mcg Oral Daily metoprolol succinate XL 25 mg Oral Daily pantoprazole EC 40 mg Oral Daily sertraline 200 mg Oral Daily topiramate 25 mg Oral Daily sodium chloride 0.9 % (flush) 5 mL Intravenous BID docusate sodium 100 mg Oral BID Continuous Infusions: PRN: melatonin, 3 mg, Nightly PRN acetaminophen, 1,000 mg, Q6H PRN Or acetaminophen, 975 mg, Q6H PRN Or acetaminophen, 650 mg, Q6H PRN lidocaine, 3 mL, Once PRN ondansetron, 4 mg, Q8H PRN HYDROmorphone, 0.2 mg, Q4H PRN calcium carbonate, 500 mg, Q6H PRN polyethylene glycoL, 17 g, Daily PRN senna-docusate, 2 tablet, BID PRN sodium chloride 0.9 % (flush), 5-20 mL, Q1 Min PRN lidocaine, 0.3 mL, Once PRN labetaloL, 20 mg, Q2H PRN hydrALAZINE, 10 mg, Q2H PRN potassium chloride ER, 40 mEq, Q4H PRN Or potassium chloride ER, 20 mEq, Q4H PRN bisacodyL, 10 mg, Daily PRN oxyCODONE, 5 mg, Q4H PRN EXAM: Temp: [36.7 ??C (98.1 ??F)-37.2 ??C (99 ??F)] Heart Rate: [57-93] Resp: [12-24] BP: (96-125)/(65-83) SpO2: [90 %-97 %] Heart Rate from SpO2: [57 bpm-93 bpm] I/O: Intake/Output Summary (Last 24 hours) at 10/10/2023 0710 Last data filed at 10/10/2023 0400 Gross per 24 hour Intake 1415 ml Output 55 ml Net 1360 ml Drains: None anymore GEN:NAD, awake in bed NEURO: AA+Ox3 Speech fluent and appropriate. PERRL. EOMI with baseline dysconjugate gaze due to R exotropia. No superior gaze restriction. Face symmetric with activation Tongue midline No pronator drift MOTOR: 5/5 x4 LT sensation intact x 4 L cranial dressing CDI (Nylon) L chest dressing CDI (Nylon) Prior R EVD site CDI (isabella) R postauricular, and chest incisions CDI (Nylon) LABS: Recent Labs 10/09/23 0513 WBC 11.19* HGB 15.2 PLATELET 265 Recent Labs 10/10/23 0416 10/09/23 0513 10/08/23 0115 NA 137 136 135 K 4.4 4.1 4.0 CL 104 105 103 CO2 19* 18* 18* BUN 15 14 14 CREATININE 1.12 1.08 1.07 Recent Labs 10/09/23 0513 PT 11.6 INR 1.0 IMAGING: Post-op XRSS and CTH satisfactory Assessment: 52 y.o. 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 Now admitted due to c/f shunt malfunction/infection. He is s/p shunt explantation and placement of R EVD. After cultures remained negative and with clearance from ID, patient proceeded to OR on 10/09/23 for ventriculo-pleural shunt placement, Certas valve at 1. Plan: -Ok for q4/Floor -PT/OT eval for dispo -ID consult - following recs which are appreciated -bowel regimen -DVT ppx SCDs, hold SQH -SBP 90-160 -Dispo pending course For questions please call NSGY pager [phone] Olga Clifton MD 10/10/2023 7:10 AM Clinical Documentation Improvement: Active Hospital Problems Diagnosis Shunt malfunction Resolved Hospital Problems No resolved problems to display. * Catalino Nickerson - 10/09/2023 8:22 PM EDT [facility] NEUROSURGERY PROGRESS NOTE ID: Chapin Costa 52 y.o. male : 1970 LOS: 16 Neurosurgical Procedures this Admission: , Dr. Jimenez: VPS explantation, R EVD placement 10/09/23, Dr. Jimenez: Left v-pleural shunt placement, Certas @ 1; EVD removal INTERVAL Hx: -Post op check -fully awake, pain well controlled and reporting no acute concerns -Ever is going down for imaging now MEDICATIONS: Scheduled Meds: sodium chloride 1 g Oral TID hydrOXYzine 25 mg Oral Nightly levothyroxine 25 mcg Oral Daily metoprolol succinate XL 25 mg Oral Daily pantoprazole EC 40 mg Oral Daily sertraline 200 mg Oral Daily topiramate 25 mg Oral Daily sodium chloride 0.9 % (flush) 5 mL Intravenous BID docusate sodium 100 mg Oral BID Continuous Infusions: PRN: melatonin, 3 mg, Nightly PRN acetaminophen, 1,000 mg, Q6H PRN Or acetaminophen, 975 mg, Q6H PRN Or acetaminophen, 650 mg, Q6H PRN lidocaine, 3 mL, Once PRN ondansetron, 4 mg, Q8H PRN HYDROmorphone, 0.2 mg, Q4H PRN calcium carbonate, 500 mg, Q6H PRN polyethylene glycoL, 17 g, Daily PRN senna-docusate, 2 tablet, BID PRN sodium chloride 0.9 % (flush), 5-20 mL, Q1 Min PRN lidocaine, 0.3 mL, Once PRN labetaloL, 20 mg, Q2H PRN hydrALAZINE, 10 mg, Q2H PRN potassium chloride ER, 40 mEq, Q4H PRN Or potassium chloride ER, 20 mEq, Q4H PRN bisacodyL, 10 mg, Daily PRN oxyCODONE, 5 mg, Q4H PRN EXAM: Temp: [36.7 ??C (98.1 ??F)-37.2 ??C (99 ??F)] Heart Rate: [57-93] Resp: [12-24] BP: (92-125)/(64-82) SpO2: [90 %-96 %] Heart Rate from SpO2: [57 bpm-93 bpm] I/O: Intake/Output Summary (Last 24 hours) at 10/09/20232021 Last data filed at 10/09/20231957 Gross per 24 hour Intake 1773.33 ml Output 709 ml Net 1064.33 ml Drains: R EVD out 10/08 GEN:NAD NEURO: AA+Ox3 Speech fluent and appropriate. Naming and repetition intact. PERRL. EOMI with dysconjugate gaze (baseline). No superior gaze restriction. No facial asymmetry Tongue midline No pronator drift MOTOR: RUE:5/5 LUE:5/5 RLE: 5/5 LLE: 5/5 LT sensation intact x 4 R EVD site CDI with isabella, monocryl R postauricular, and chest incisions CDI with nylon L head and chest dressings CDI LABS: Recent Labs 10/09/23 0513 10/07/23 0015 WBC 11.19* 12.73* HGB 15.2 14.4 PLATELET 265 250 Recent Labs 10/09/23 0513 10/08/23 0115 10/07/23 0015 NA 136 135 138 K 4.1 4.0 4.0 CL 105 103 106 CO2 18* 18* 18* BUN 14 14 15 CREATININE 1.08 1.07 1.16 Recent Labs 10/09/23 0513 PT 11.6 INR 1.0 IMAGING: No new Assessment: 52 y.o. 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 Now admitted due to c/f shunt malfunction/infection. He is s/p shunt explantation and placement of R EVD. After course of abx x 2 weeks and clearance from ID given negative CSF cultures, now s/p left v-pleural shunt placement and EVD removal. Recovering postop, will obtain routine CT and XRSS. Plan: -Q2 neuro checks, Q2 VS -ID consult - following recs -Diet as tolerated -F/u CTH and XRSS -bowel regimen -DVT ppx SCDs, hold SQH -SBP 90-160 -Dispo pending course For question please call NSPushCall pager [phone] Catalino Nickerson 10/09/2023 8:22 PM Clinical Documentation Improvement: Active Hospital Problems Diagnosis Shunt malfunction Resolved Hospital Problems No resolved problems to display. * Dianelys Call RN - 10/09/2023 6:37 PM EDT OUTCOME EVALUATION NOTE: OUTCOME SUMMARY: Pt is A/Ox4. VSS on RA. EVD was removed and shunt was placed this afternoon on the left side. No neuro changes this shift. Care on going, safety maintained. PLAN MOVING FORWARD: Q2 NC Q2 VS Regular diet INDIVIDUALIZED FALL PREVENTION INTERVENTIONS: Patient-specific fall risk factors per assessment: post-op shunt revision, hospital environment, lines and wires. Assistance: SBA Supervision: Arms reach Surveillance: Bed locked in low position, call shell within reach, purposeful hourly rounding, clutter free environment, bed/chair alarm on, family at bedside. Patient-specific fall prevention interventions for sensory deficits provided: Yes CPG GOAL OUTCOME EVALUATION: Continue care plan as documented. * Laila Ricci MD - 10/09/2023 4:58 PM EDT [facility] NEUROSURGERY PROGRESS NOTE ID: Chapin Costa 52 y.o. male : 1970 LOS: 16 Neurosurgical Procedures this Admission: , Dr. Jimenez: VPS explantation, R EVD placement 10/09/23, Dr. Jimenez: Left v-pleural shunt placement, Certas @ 1; EVD removal INTERVAL Hx: -POC MEDICATIONS: Scheduled Meds: [Transfer Hold] sodium chloride 1 g Oral TID [Transfer Hold] melatonin 6 mg Oral Nightly [Transfer Hold] hydrOXYzine 25 mg Oral Nightly [Transfer Hold] levothyroxine 25 mcg Oral Daily [Transfer Hold] metoprolol succinate XL 25 mg Oral Daily [Transfer Hold] pantoprazole EC 40 mg Oral Daily [Transfer Hold] sertraline 200 mg Oral Daily [Transfer Hold] topiramate 25 mg Oral Daily sodium chloride 0.9 % (flush) 5 mL Intravenous BID [Transfer Hold] docusate sodium 100 mg Oral BID Continuous Infusions: [Transfer Hold] sodium chloride 0.9% 100 mL/hr (10/09/23 0022) PRN: BUPivacaine-EPINEPHrine, , PRN gelatin adsorbable, , PRN [Transfer Hold] melatonin, 3 mg, Nightly PRN [Transfer Hold] acetaminophen, 1,000 mg, Q6H PRN Or [Transfer Hold] acetaminophen, 975 mg, Q6H PRN Or [Transfer Hold] acetaminophen, 650 mg, Q6H PRN [Transfer Hold] lidocaine, 3 mL, Once PRN [Transfer Hold] ondansetron, 4 mg, Q8H PRN [Transfer Hold] HYDROmorphone, 0.2 mg, Q4H PRN [Transfer Hold] calcium carbonate, 500 mg, Q6H PRN [Transfer Hold] polyethylene glycoL, 17 g, Daily PRN [Transfer Hold] senna-docusate, 2 tablet, BID PRN sodium chloride 0.9 % (flush), 5-20 mL, Q1 Min PRN lidocaine, 0.3 mL, Once PRN [Transfer Hold] labetaloL, 20 mg, Q2H PRN [Transfer Hold] hydrALAZINE, 10 mg, Q2H PRN [Transfer Hold] potassium chloride ER, 40 mEq, Q4H PRN Or [Transfer Hold] potassium chloride ER, 20 mEq, Q4H PRN [Transfer Hold] bisacodyL, 10 mg, Daily PRN [Transfer Hold] oxyCODONE, 5 mg, Q4H PRN BUPivacaine-EPINEPHrine, , PRN thrombin (Bovine), , PRN EXAM: Temp: [36.7 ??C (98.1 ??F)-37.1 ??C (98.8 ??F)] Heart Rate: [57-79] Resp: [12-24] BP: (92-122)/(64-83) SpO2: [90 %-96 %] Heart Rate from SpO2: [57 bpm-79 bpm] I/O: Intake/Output Summary (Last 24 hours) at 10/09/2023 1658 Last data filed at 10/09/2023 1600 Gross per 24 hour Intake 1728.33 ml Output 728 ml Net 1000.33 ml Drains: R EVD out 10/08 GEN: waking up from anesthesia NEURO: Groggy, says name PERRL. EOMI with baseline dysconjugate gaze . No superior gaze restriction. No facial asymmetry Tongue midline No pronator drift MOTOR: All extremities 5/5 LT sensation intact x 4 R EVD site CDI with isabella, monocryl R postauricular, and chest incisions CDI with nylon L head and chest dressings CDI LABS: Recent Labs 10/09/23 0513 10/07/23 0015 WBC 11.19* 12.73* HGB 15.2 14.4 PLATELET 265 250 Recent Labs 10/09/23 0513 10/08/23 0115 10/07/23 0015 NA 136 135 138 K 4.1 4.0 4.0 CL 105 103 106 CO2 18* 18* 18* BUN 14 14 15 CREATININE 1.08 1.07 1.16 Recent Labs 10/09/23 0513 PT 11.6 INR 1.0 IMAGING: None new Assessment: 52 y.o. 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 Now admitted due to c/f shunt malfunction/infection. He is s/p shunt explantation and placement of R EVD. After course of abx x 2 weeks and clearance from ID given negative CSF cultures, now s/p left v-pleural shunt placement and EVD removal. Recovering postop, will obtain routine CT and XRSS. Plan: -Q2 neuro checks, Q2 VS -ID consult - following recs -Diet as tolerated -F/u CTH and XRSS -bowel regimen -DVT ppx SCDs, hold SQH -SBP 90-160 -Dispo pending course For question please call NSPushCall pager [phone] Laila Ricci MD 10/09/2023 4:58 PM Clinical Documentation Improvement: Active Hospital Problems Diagnosis Shunt malfunction Resolved Hospital Problems No resolved problems to display. * Merari Alberts RN - 10/09/2023 4:53 PM EDT Pt sleeping off and on. Brenda po sips. Denies ALICEA. Neuro intact. Report to [facility] in [facility]. * Frank Murray MD - 10/09/2023 10:23 AM EDT Unfortunately Ever was readmitted to the hospital for a shunt infection. I went and visited him and his mother shared that Ever continues to do well and is the best they have seen him in years. No issues with eating, specifically no nausea, vomiting or abdominal pain. Bowel activity has been regular and normal. Midline wound is well healed. They were scheduled to see Annalise on 10/20 however there is no need. They know to call and make an appointment on an as needed basis. * Winnie Graham RN - 10/09/2023 10:16 AM EDT During VAS Purposeful Rounding, an assessment of your patient's venous access was performed fby theVascular Access Service. The following tasks were performed if needed and communicated to the bedside RN Choose all that apply: [] PIV(s) checked for patency if daily need for flush needs to be performed [] CVAD was checked for patency if daily flush needs to be performed [] IV tubing clamped or capped if needed [] Visual inspection of your patient's central line dressing integrity [x] Review of indications for vascular access [] A photo was taken of your patient's central line [x] Visual inspection of your patient's IV dressing integrity [] Other While rounding an intervention was needed and communicated to the bedside RN Choose all that apply: [] Nonocclusive IV dressing addressed [] Nonocclusive CVAD dressing (please identify type of line) [] Infusion site leaking [] IV not patent and removed [] IV not indicated [] IV placed [] IV restarted [] Implanted Port, PICC or ML dressing changed if needed (either PRN or weekly) [] Other * Laila Ricci MD - 10/09/2023 6:52 AM EDT [facility] NEUROSURGERY PROGRESS NOTE ID: Chapni Costa 52 y.o. male : 1970 LOS: 16 Neurosurgical Procedures this Admission: , Dr. Jimenez: VPS explantation, R EVD placement INTERVAL Hx: -SANIA -CSF negative, now off abx per ID, afebrile -NPO for OR -Denies ALICEA MEDICATIONS: Scheduled Meds: sodium chloride 1 g Oral TID melatonin 6 mg Oral Nightly hydrOXYzine 25 mg Oral Nightly levothyroxine 25 mcg Oral Daily metoprolol succinate XL 25 mg Oral Daily pantoprazole EC 40 mg Oral Daily sertraline 200 mg Oral Daily topiramate 25 mg Oral Daily sodium chloride 0.9 % (flush) 5 mL Intravenous BID docusate sodium 100 mg Oral BID Continuous Infusions: sodium chloride 0.9% 100 mL/hr (10/09/23 0022) PRN: melatonin, 3 mg, Nightly PRN acetaminophen, 1,000 mg, Q6H PRN Or acetaminophen, 975 mg, Q6H PRN Or acetaminophen, 650 mg, Q6H PRN lidocaine, 3 mL, Once PRN ondansetron, 4 mg, Q8H PRN HYDROmorphone, 0.2 mg, Q4H PRN calcium carbonate, 500 mg, Q6H PRN polyethylene glycoL, 17 g, Daily PRN senna-docusate, 2 tablet, BID PRN sodium chloride 0.9 % (flush), 5-20 mL, Q1 Min PRN lidocaine, 0.3 mL, Once PRN labetaloL, 20 mg, Q2H PRN hydrALAZINE, 10 mg, Q2H PRN potassium chloride ER, 40 mEq, Q4H PRN Or potassium chloride ER, 20 mEq, Q4H PRN bisacodyL, 10 mg, Daily PRN oxyCODONE, 5 mg, Q4H PRN BUPivacaine-EPINEPHrine, , PRN thrombin (Bovine), , PRN EXAM: Temp: [36.4 ??C (97.6 ??F)-37.1 ??C (98.8 ??F)] Heart Rate: [59-73] Resp: [11-18] BP: (92-122)/(64-89) SpO2: [91 %-96 %] Heart Rate from SpO2: [59 bpm-74 bpm] I/O: Intake/Output Summary (Last 24 hours) at 10/09/2023 0652 Last data filed at 10/09/2023 0600 Gross per 24 hour Intake 368.33 ml Output 1835 ml Net -1466.67 ml Drains: R EVD patent, not transducing, output reviewed in eDH GEN:NAD, awake in bed NEURO: AA+Ox3 Speech fluent and appropriate. PERRL. EOMI with baseline dysconjugate gaze due to R exotropia. No superior gaze restriction. No facial asymmetry Tongue midline No pronator drift MOTOR: 5/5 LT sensation intact x 4 R EVD site CDI R postauricular, and chest incisions CDI with nylon LABS: Recent Labs 10/09/23 0513 10/07/23 0015 WBC 11.19* 12.73* HGB 15.2 14.4 PLATELET 265 250 Recent Labs 10/09/23 0513 10/08/23 0115 10/07/23 0015 NA 136 135 138 K 4.1 4.0 4.0 CL 105 103 106 CO2 18* 18* 18* BUN 14 14 15 CREATININE 1.08 1.07 1.16 Recent Labs 10/09/23 0513 PT 11.6 INR 1.0 IMAGING: None new Assessment: 52 y.o. 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 Now admitted due to c/f shunt malfunction/infection. He is s/p shunt explantation and placement of R EVD. Ever is doing well with EVD remaining in place. Clearance from ID for reimplantation of shunt, NPO for this today. Plan: -Q2 neuro checks, Q2 VS -EVD open @ 5, not transducing -ID consult - following recs -NPO -bowel regimen -DVT ppx SCDs, hold SQH -SBP 90-160 -OR today add on case -Dispo pending course For question please call ByRead pager [phone] Laila Ricci MD 10/09/2023 6:52 AM Clinical Documentation Improvement: Active Hospital Problems Diagnosis Shunt malfunction Resolved Hospital Problems No resolved problems to display. * Dianelys Call RN - 10/08/2023 5:09 PM EDT OUTCOME EVALUATION NOTE: OUTCOME SUMMARY: Pt is A/Ox4. VSS on RA, no reports of pain. No neuro changes. IV ABX discontinued. EVD draining clear yellow Q2hrs. Bladder scanned and straight cathed this afternoon. Care on going, safety maintained. PLAN MOVING FORWARD: Plan for surgery Q2 VS/NC Q2 EVD draining NPO at midnight INDIVIDUALIZED FALL PREVENTION INTERVENTIONS: Patient-specific fall risk factors per assessment: hospital environment, EVD, lines and wires. Assistance: SBA Supervision: Arms reach Surveillance: Bed locked in low position, call shell within reach, purposeful hourly rounding, clutter free environment, bed/chair alarm on, family at bedside. Patient-specific fall prevention interventions for sensory deficits provided: Yes CPG GOAL OUTCOME EVALUATION: Continue care plan as documented. * Laila Ricci MD - 10/08/2023 6:57 AM EDT [facility] NEUROSURGERY PROGRESS NOTE ID: Chapin Costa 52 y.o. male : 1970 LOS: 15 Neurosurgical Procedures this Admission: , Dr. Jimenez: VPS explantation, R EVD placement INTERVAL Hx: -SANIA -CSF NG all cultures except most recent finalized, on Vanc, Per ID can reimplant and stop abx -NPO for add on shunt today, consented yesterday -CTH this morning for ventricular caliber evaluation preop -Denies ALICEA MEDICATIONS: Scheduled Meds: sodium chloride 1 g Oral TID melatonin 6 mg Oral Nightly hydrOXYzine 25 mg Oral Nightly levothyroxine 25 mcg Oral Daily metoprolol succinate XL 25 mg Oral Daily pantoprazole EC 40 mg Oral Daily sertraline 200 mg Oral Daily topiramate 25 mg Oral Daily sodium chloride 0.9 % (flush) 5 mL Intravenous BID docusate sodium 100 mg Oral BID vancomycin 1.25 g Intravenous Q12H And diphenhydrAMINE 25 mg Intravenous Q12H Continuous Infusions: sodium chloride 0.9% 100 mL/hr (10/08/23 0600) PRN: melatonin, 3 mg, Nightly PRN acetaminophen, 1,000 mg, Q6H PRN Or acetaminophen, 975 mg, Q6H PRN Or acetaminophen, 650 mg, Q6H PRN lidocaine, 3 mL, Once PRN ondansetron, 4 mg, Q8H PRN HYDROmorphone, 0.2 mg, Q4H PRN calcium carbonate, 500 mg, Q6H PRN polyethylene glycoL, 17 g, Daily PRN senna-docusate, 2 tablet, BID PRN sodium chloride 0.9 % (flush), 5-20 mL, Q1 Min PRN lidocaine, 0.3 mL, Once PRN labetaloL, 20 mg, Q2H PRN hydrALAZINE, 10 mg, Q2H PRN potassium chloride ER, 40 mEq, Q4H PRN Or potassium chloride ER, 20 mEq, Q4H PRN bisacodyL, 10 mg, Daily PRN vancomycin, , Per Pharmacy oxyCODONE, 5 mg, Q4H PRN BUPivacaine-EPINEPHrine, , PRN thrombin (Bovine), , PRN EXAM: Temp: [36.4 ??C (97.5 ??F)-37.3 ??C (99.1 ??F)] Heart Rate: [58-81] Resp: [11-20] BP: (105-130)/(74-97) SpO2: [92 %-97 %] Heart Rate from SpO2: [59 bpm-81 bpm] I/O: Intake/Output Summary (Last 24 hours) at 10/08/2023 0657 Last data filed at 10/08/2023 0600 Gross per 24 hour Intake 1970 ml Output 166 ml Net 1804 ml Drains: R EVD patent, not transducing, output reviewed in eDH GEN:NAD, awake in bed NEURO: AA+Ox3 Speech fluent and appropriate. PERRL. EOMI with baseline dysconjugate gaze due to R exotropia. No superior gaze restriction. No facial asymmetry Tongue midline No pronator drift MOTOR: 5/5 LT sensation intact x 4 R EVD site CDI R postauricular, and chest incisions CDI with nylon LABS: Recent Labs 10/07/23 0015 WBC 12.73* HGB 14.4 PLATELET 250 Recent Labs 10/08/23 0115 10/07/23 0015 10/06/23 0846 NA 135 138 137 K 4.0 4.0 3.6 CL 103 106 104 CO2 18* 18* 19* BUN 14 15 14 CREATININE 1.07 1.16 1.08 No results for input(s): PT, INR in the last 72 hours. IMAGING: None new Assessment: 52 y.o. 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 Now admitted due to c/f shunt malfunction/infection. He is s/p shunt explantation and placement of R EVD. Ever is doing well with EVD remaining in place. Clearance from ID for reimplantation of shunt, NPO for this today. Plan: -Q2 neuro checks, Q2 VS -EVD open @ 5, not transducing -ID consult - following recs -NPO -bowel regimen -DVT ppx SCDs, hold SQH -SBP 90-160 -OR today add on case -Dispo pending course For question please call NSGY pager [phone] Laila Ricci MD 10/08/2023 6:57 AM Clinical Documentation Improvement: Active Hospital Problems Diagnosis Shunt malfunction Resolved Hospital Problems No resolved problems to display. * Laila Ricci MD - 10/07/2023 10:14 AM EDT [facility] NEUROSURGERY PROGRESS NOTE ID: Chapin Costa 52 y.o. male : 1970 LOS: 14 Neurosurgical Procedures this Admission: , Dr. Jimenez: VPS explantation, R EVD placement INTERVAL Hx: -SANIA -CSF NGTD, remains on Vanc -No complaints, awaiting final ID recs MEDICATIONS: Scheduled Meds: testosterone cypionate 250 mg Intramuscular Once heparin (porcine) 5,000 Units Subcutaneous 2 times per day sodium chloride 1 g Oral TID melatonin 6 mg Oral Nightly hydrOXYzine 25 mg Oral Nightly levothyroxine 25 mcg Oral Daily metoprolol succinate XL 25 mg Oral Daily pantoprazole EC 40 mg Oral Daily sertraline 200 mg Oral Daily topiramate 25 mg Oral Daily sodium chloride 0.9 % (flush) 5 mL Intravenous BID docusate sodium 100 mg Oral BID vancomycin 1.25 g Intravenous Q12H And diphenhydrAMINE 25 mg Intravenous Q12H Continuous Infusions: PRN: melatonin, 3 mg, Nightly PRN acetaminophen, 1,000 mg, Q6H PRN Or acetaminophen, 975 mg, Q6H PRN Or acetaminophen, 650 mg, Q6H PRN lidocaine, 3 mL, Once PRN ondansetron, 4 mg, Q8H PRN HYDROmorphone, 0.2 mg, Q4H PRN calcium carbonate, 500 mg, Q6H PRN polyethylene glycoL, 17 g, Daily PRN senna-docusate, 2 tablet, BID PRN sodium chloride 0.9 % (flush), 5-20 mL, Q1 Min PRN lidocaine, 0.3 mL, Once PRN labetaloL, 20 mg, Q2H PRN hydrALAZINE, 10 mg, Q2H PRN potassium chloride ER, 40 mEq, Q4H PRN Or potassium chloride ER, 20 mEq, Q4H PRN bisacodyL, 10 mg, Daily PRN vancomycin, , Per Pharmacy oxyCODONE, 5 mg, Q4H PRN BUPivacaine-EPINEPHrine, , PRN thrombin (Bovine), , PRN EXAM: Temp: [36.9 ??C (98.5 ??F)-37.4 ??C (99.3 ??F)] Heart Rate: [58-81] Resp: [13-20] BP: (112-138)/(74-94) SpO2: [91 %-94 %] Heart Rate from SpO2: [57 bpm-81 bpm] I/O: Intake/Output Summary (Last 24 hours) at 10/07/2023 1014 Last data filed at 10/07/2023 0800 Gross per 24 hour Intake 1911 ml Output 114 ml Net 1797 ml Drains: R EVD patent, not transducing, output reviewed in eDH GEN:NAD, awake in bed NEURO: AA+Ox3 Speech fluent and appropriate. PERRL. EOMI with baseline dysconjugate gaze due to R exotropia. No superior gaze restriction. No facial asymmetry Tongue midline No pronator drift MOTOR: 5/5 LT sensation intact x 4 R EVD site CDI R postauricular, and chest incisions CDI with nylon LABS: Recent Labs 10/07/23 0015 10/05/23 0025 WBC 12.73* 12.42* HGB 14.4 15.0 PLATELET 250 249 Recent Labs 10/07/23 0015 10/06/23 0846 10/05/232015 NA 138 137 139 K 4.0 3.6 3.4* CL 106 104 105 CO2 18* 19* 19* BUN 15 14 15 CREATININE 1.16 1.08 1.10 No results for input(s): PT, INR in the last 72 hours. IMAGING: None new Assessment: 52 y.o. 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 Now admitted due to c/f shunt malfunction/infection. He is s/p shunt explantation and placement of R EVD. Patient with improvement since EVD replacement, now at 0. Will continue as is for now with supportive care and IV abx per ID. Ever is doing well with EVD remaining in place, awaiting final results of CSF to help determine shunt replacement timing. Awaiting final ID recs for this. Plan: -Q2 neuro checks, Q2 VS -EVD open @ 5, not transducing -ID consult - following recs -advance diet as tolerated -bowel regimen -DVT ppx SCDs, SQH -SBP 90-160 -Will discuss VPS insertion timing -Dispo pending course For question please call NSPushCall pager [phone] Laila Ricci MD 10/07/2023 10:14 AM Clinical Documentation Improvement: Active Hospital Problems Diagnosis Shunt malfunction Resolved Hospital Problems No resolved problems to display. * Gema Mayberry MD - 10/07/2023 9:58 AM EDT INFECTIOUS DISEASE FOLLOW-UP NOTE Active ID Issue(s): 52 y.o. male being followed by ID for WIND 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 infection. ID service signed off. Re engagement request by primary team for clearance for WIND 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 placement. Current Antimicrobial(s): IV Vancomycin Interval History/Subjective: Chapin Costa is a 52 y.o. 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 He has an EVD, and cultures grew GPR that is finalized as NEGATIVE. CSF cell count from 09/29 and 09/24 as follows: Component Ref Range & Units 7 d ago (09/30/23) 12 d ago (09/25/23) AUTO NUC CSF CT 0 - 5 /mcl 4 80 High CM AUTO RBC CSF CT /mcl 209 596 Diff Performed CSF? Yes Segmented Neutrophils, CSF <=90 % 8 93 CM Lymphocyte, CSF % 54 2 Macrophage CSF % 16 5 Eosinophil CSF % 22 Total Cells, CSF Cells 125 200 Tube # counted 1 CSF cultures from 09/29 and 09/24, 09/23, 09/22 are NEGATIVE. Blood cx NEG No fevers or significant leukocytosis. Completed 2 weeks of IV Vancomycin as well. Pt is awake, alert Denies any chest pain , headaches, neck pain or cough, fevers chills N,V,D 10-point ROS: negative except what is stated above. Physical Exam: Last value Range last 24 hrs Temperature Temp: 37.3 ??C (99.1 ??F) Temp: [36.9 ??C (98.4 ??F)-37.4 ??C (99.3 ??F)] Heart Rate Heart Rate: 81 Heart Rate: [58-81] Blood Pressure BP: 113/82 BP: (112-138)/(74-94) Respiratory Rate Resp: 18 Resp: [13-20] SpO2 SpO2: 92 % SpO2: [91 %-94 %] General: no acute distress Head: normocephalic, atraumatic + EVD, no pus from any incision EENT: No conjunctival petechiae Neck: No LAD Cardiovascular: RRR, no murmur, rubs, or gallops Pulmonary: Lungs clear to auscultation bilaterally; no wheezing, rhonchi, or rales Abdomen: Soft, non-tender, non-distended Ext: No deformity Skin: No rash on visible skin EVD + 10/04 placed I have reviewed available microbiology, laboratory, imaging/radiology/diagnostics. Laboratory: Recent Labs 10/07/23 0015 10/05/23 0025 10/03/23 0413 WBC 12.73* 12.42* 13.41* HGB 14.4 15.0 16.3 HCT 42.1 43.5 47.3 PLATELET 250 249 239 Recent Labs 10/07/23 0015 10/06/23 0846 10/05/232015 NA 138 137 139 K 4.0 3.6 3.4* CL 106 104 105 CO2 18* 19* 19* BUN 15 14 15 CREATININE 1.16 1.08 1.10 No results for input(s): AST, ALT, ALKPHOS, BILITOT, BILIDIR in the last 168 hours. Recent Labs 10/06/23 0846 SEDRATE 36 Recent Labs 10/05/23 2016 CRP 11.4* Microbiology: See above Antimicrobials: IV Vancomycin x 14 days Imaging/diagnostics: Reports reviewed. CT HEAD WO CONTRAST (GENERIC) IMPRESSION Stable parenchymal hemorrhage surrounding the frontal ventricular catheter. Decreased size of the ventricular system, as above. Electronically signed by: Jackson Jules DO, [facility] ([phone]), at 10/04/2023 9:13 AM Impression: Chapin Costa is a 52 y.o.male PNES, depression, cholecystectomy, HLD, SBO with resection 07/16, chronic ALICEA, shunted congenital hydrocephalus / aqueductal stenosis with multiple shunt revisions admitted 09/23/23 for a WIND 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 infection. He has an EVD, and cultures grew GPR that is finalized as NEGATIVE. CSF cell count from 09/29 and 09/24 show decrease in cell count in recent sample. CSF cultures from nd 09/24, 09/23, 09/22 are NEGATIVE. Blood cx NEG No fevers or significant leukocytosis. Completed 2 weeks of IV Vancomycin as well. RECOMMENDATIONS: - Mr Costa has completed two weeks of IV Vancomycin therapy. - CSF cultures were initially growing GPR which are now finalized as NEG - Pt remains afebrile, stable WBC, no headaches. - As per IDSA guidelines, new shunt may be placed as CSF cultures were negative and pt has completed an apporpriate course of antibiotics. -Rest of care per primary team - ID service to sign off. Time spent 50 minutes on the date of service on the [id number] encounter, chart review, clinical decision-making, documentation, and coordination of care with other team members regarding treatmentof infection Dr. Mayberry, ID Attending, Department of Infectious diseases. 8 AM to 5 PM, Thursday - Thursday10/07/2023 * Laila Ricci MD - 10/06/2023 11:55 AM EDT [facility] NEUROSURGERY PROGRESS NOTE ID: Chapin Costa 52 y.o. male : 1970 LOS: 13 Neurosurgical Procedures this Admission: , Dr. Jimenez: VPS explantation, R EVD placement INTERVAL Hx: -SANIA -CSF NGTD, remains on Vanc -EVD raised to 5 to help determine best setting for eventual shunt replacement MEDICATIONS: Scheduled Meds: heparin (porcine) 5,000 Units Subcutaneous 2 times per day sodium chloride 1 g Oral TID melatonin 6 mg Oral Nightly hydrOXYzine 25 mg Oral Nightly levothyroxine 25 mcg Oral Daily metoprolol succinate XL 25 mg Oral Daily pantoprazole EC 40 mg Oral Daily sertraline 200 mg Oral Daily topiramate 25 mg Oral Daily sodium chloride 0.9 % (flush) 5 mL Intravenous BID docusate sodium 100 mg Oral BID vancomycin 1.25 g Intravenous Q12H And diphenhydrAMINE 25 mg Intravenous Q12H Continuous Infusions: PRN: acetaminophen, 1,000 mg, Q6H PRN Or acetaminophen, 975 mg, Q6H PRN Or acetaminophen, 650 mg, Q6H PRN lidocaine, 3 mL, Once PRN ondansetron, 4 mg, Q8H PRN HYDROmorphone, 0.2 mg, Q4H PRN calcium carbonate, 500 mg, Q6H PRN polyethylene glycoL, 17 g, Daily PRN senna-docusate, 2 tablet, BID PRN sodium chloride 0.9 % (flush), 5-20 mL, Q1 Min PRN lidocaine, 0.3 mL, Once PRN labetaloL, 20 mg, Q2H PRN hydrALAZINE, 10 mg, Q2H PRN potassium chloride ER, 40 mEq, Q4H PRN Or potassium chloride ER, 20 mEq, Q4H PRN bisacodyL, 10 mg, Daily PRN vancomycin, , Per Pharmacy oxyCODONE, 5 mg, Q4H PRN BUPivacaine-EPINEPHrine, , PRN thrombin (Bovine), , PRN EXAM: Temp: [36.9 ??C (98.4 ??F)-37.8 ??C (100.1 ??F)] Heart Rate: [62-78] Resp: [13-29] BP: (109-133)/(81-96) SpO2: [92 %-95 %] Heart Rate from SpO2: [62 bpm-77 bpm] I/O: Intake/Output Summary (Last 24 hours) at 10/06/2023 1155 Last data filed at 10/06/2023 1000 Gross per 24 hour Intake 750 ml Output 149 ml Net 601 ml Drains: R EVD = 152cc, patent GEN:NAD, awake in bed NEURO: AA+Ox3 Speech fluent and appropriate. PERRL. EOMI with baseline dysconjugate gaze due to R exotropia. No superior gaze restriction. No facial asymmetry Tongue midline No pronator drift MOTOR: 5/5 LT sensation intact x 4 R EVD site CDI R postauricular, and chest incisions CDI with nylon LABS: Recent Labs 10/05/23 0025 WBC 12.42* HGB 15.0 PLATELET 249 Recent Labs 10/06/23 0846 10/05/23201510/05/23 0817 NA 137 139 135 K 3.6 3.4* 3.5 CL 104 105 101 CO2 19* 19* 19* BUN 14 15 16 CREATININE 1.08 1.10 1.02 No results for input(s): PT, INR in the last 72 hours. IMAGING: None new Assessment: 52 y.o. 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 Now admitted due to c/f shunt malfunction/infection. He is s/p shunt explantation and placement of R EVD. Patient with improvement since EVD replacement, now at 0. Will continue as is for now with supportive care and IV abx per ID. Ever is doing well with EVD remaining in place, awaiting final results of CSF to help determine shunt replacement timing. Will follow up with ID today about this. In other regards his sodium is now normalized so will space out labs again. Plan: -Q2 neuro checks, Q2 VS -EVD open @ 5, not transducing -ID consult - following recs -advance diet as tolerated -bowel regimen -DVT ppx SCDs, SQH -SBP 90-160 -Will discuss VPS insertion timing -Dispo pending course For question please call NSGY pager [phone] Laila Ricci MD 10/06/2023 11:55 AM Clinical Documentation Improvement: Active Hospital Problems Diagnosis Shunt malfunction Resolved Hospital Problems No resolved problems to display. * Tatiana Bernardo RN - 10/05/2023 6:19 PM EDT OUTCOME EVALUATION NOTE: OUTCOME SUMMARY: Pt I&O, Labs, VS monitored throughout shift. Pt had shunt series Xray this am, tolerated well. Ambulating around unit. ID re-consulted. Safety measures maintained throughout shift. PLAN MOVING FORWARD: EVD removal at some point * Laila Ricci MD - 10/05/2023 7:00 AM EDT [facility] NEUROSURGERY PROGRESS NOTE ID: Chapin Costa 52 y.o. male : 1970 LOS: 12 Neurosurgical Procedures this Admission: , Dr. Jimenez: VPS explantation, R EVD placement INTERVAL Hx: -SANIA -CSF NGTD, remains on [facility] yesterday with improvement in ventricular caliber -On 1g TID for hyponatremia, 135 this morning MEDICATIONS: Scheduled Meds: heparin (porcine) 5,000 Units Subcutaneous 2 times per day sodium chloride 1 g Oral TID melatonin 6 mg Oral Nightly hydrOXYzine 25 mg Oral Nightly levothyroxine 25 mcg Oral Daily metoprolol succinate XL 25 mg Oral Daily pantoprazole EC 40 mg Oral Daily sertraline 200 mg Oral Daily topiramate 25 mg Oral Daily sodium chloride 0.9 % (flush) 5 mL Intravenous BID docusate sodium 100 mg Oral BID vancomycin 1.25 g Intravenous Q12H And diphenhydrAMINE 25 mg Intravenous Q12H Continuous Infusions: PRN: acetaminophen, 1,000 mg, Q6H PRN Or acetaminophen, 975 mg, Q6H PRN Or acetaminophen, 650 mg, Q6H PRN lidocaine, 3 mL, Once PRN ondansetron, 4 mg, Q8H PRN HYDROmorphone, 0.2 mg, Q4H PRN calcium carbonate, 500 mg, Q6H PRN polyethylene glycoL, 17 g, Daily PRN senna-docusate, 2 tablet, BID PRN sodium chloride 0.9 % (flush), 5-20 mL, Q1 Min PRN lidocaine, 0.3 mL, Once PRN labetaloL, 20 mg, Q2H PRN hydrALAZINE, 10 mg, Q2H PRN potassium chloride ER, 40 mEq, Q4H PRN Or potassium chloride ER, 20 mEq, Q4H PRN bisacodyL, 10 mg, Daily PRN vancomycin, , Per Pharmacy oxyCODONE, 5 mg, Q4H PRN BUPivacaine-EPINEPHrine, , PRN thrombin (Bovine), , PRN EXAM: Temp: [36.4 ??C (97.5 ??F)-36.7 ??C (98 ??F)] Heart Rate: [63-77] Resp: [12-21] BP: (116-144)/(82-108) SpO2: [90 %-95 %] Heart Rate from SpO2: [63 bpm-77 bpm] I/O: Intake/Output Summary (Last 24 hours) at 10/05/2023 0541 Last data filed at 10/05/2023 0400 Gross per 24 hour Intake 1730 ml Output 570 ml Net 1160 ml Drains: R EVD = 163cc, patent GEN:NAD, awake in bed NEURO: AA+Ox3 Speech fluent and appropriate. PERRL. EOMI with baseline dysconjugate gaze due to R exotropia. No superior gaze restriction today. No facial asymmetry Tongue midline No pronator drift MOTOR: 5/5 LT sensation intact x 4 R EVD site CDI R postauricular, and chest incisions CDI with nylon LABS: Recent Labs 10/05/23 0025 10/03/23 0413 WBC 12.42* 13.41* HGB 15.0 16.3 PLATELET 249 239 Recent Labs 10/04/23201510/03/23 2249 10/03/23205210/03/23412 NA 135 134* 131* 132* K 3.3* 4.2 3.8 -- 3.7 CL 101 100 100 101 CO2 19* 15* 17* 19* BUN 18 17 16 18 CREATININE 1.02 1.09 0.99 1.07 No results for input(s): PT, INR in the last 72 hours. IMAGING: None new Assessment: 52 y.o. 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 Now admitted due to c/f shunt malfunction/infection. He is s/p shunt explantation and placement of R EVD. Patient with improvement since EVD replacement, now at 0. Will continue as is for now with supportive care and IV abx per ID. Following cultures for timing of shunt replacement. Surveillance CTH today with improvement in ventricular caliber shake backboard notcher to his baseline and his sx of ALICEA and fatigue now resolved. Recently with hyponatremia, will obtain urine labs this morning. Plan: -Q2 neuro checks, Q2 VS -EVD open @ 0, not transducing -ID consult - following recs -advance diet as tolerated -bowel regimen -DVT ppx SCDs, hold SQH -SBP 90-160 -Will discuss VPS insertion timing -Dispo pending course For question please call NSPushCall pager [phone] Laila Ricci MD 10/05/2023 5:41 AM Clinical Documentation Improvement: Active Hospital Problems Diagnosis Shunt malfunction Resolved Hospital Problems No resolved problems to display. * Missy Goldman RN - 10/04/2023 9:26 AM EDT Pt got OOB without staff members to use the bathroom, pt stating I couldn't wait. EVD was not clamped and pt dumped 20cc CSF. Blood in EVD tubing. Neuro exam unchanged. EVD was clamped distally andproximally. [employer] paged neurosurgery at [phone]. Education was provided to patient regarding safety and drain management. Pt verbalized understanding. * Laila Ricci MD - 10/04/2023 6:14 AM EDT [facility] NEUROSURGERY PROGRESS NOTE ID: Chapin Costa 52 y.o. male : 1970 LOS: 11 Neurosurgical Procedures this Admission: , Dr. Jimenez: VPS explantation, R EVD placement INTERVAL Hx: -SANIA -CSF NGTD, remains on Vanc -Denies ALICEA today, afebrile -Repeat CT this morning done for surveillance MEDICATIONS: Scheduled Meds: melatonin 6 mg Oral Nightly hydrOXYzine 25 mg Oral Nightly levothyroxine 25 mcg Oral Daily metoprolol succinate XL 25 mg Oral Daily pantoprazole EC 40 mg Oral Daily sertraline 200 mg Oral Daily topiramate 25 mg Oral Daily sodium chloride 0.9 % (flush) 5 mL Intravenous BID docusate sodium 100 mg Oral BID vancomycin 1.25 g Intravenous Q12H And diphenhydrAMINE 25 mg Intravenous Q12H Continuous Infusions: PRN: acetaminophen, 1,000 mg, Q6H PRN Or acetaminophen, 975 mg, Q6H PRN Or acetaminophen, 650 mg, Q6H PRN lidocaine, 3 mL, Once PRN ondansetron, 4 mg, Q8H PRN HYDROmorphone, 0.2 mg, Q4H PRN calcium carbonate, 500 mg, Q6H PRN polyethylene glycoL, 17 g, Daily PRN senna-docusate, 2 tablet, BID PRN sodium chloride 0.9 % (flush), 5-20 mL, Q1 Min PRN lidocaine, 0.3 mL, Once PRN labetaloL, 20 mg, Q2H PRN hydrALAZINE, 10 mg, Q2H PRN potassium chloride ER, 40 mEq, Q4H PRN Or potassium chloride ER, 20 mEq, Q4H PRN bisacodyL, 10 mg, Daily PRN vancomycin, , Per Pharmacy oxyCODONE, 5 mg, Q4H PRN BUPivacaine-EPINEPHrine, , PRN thrombin (Bovine), , PRN EXAM: Temp: [36.5 ??C (97.7 ??F)-37.2 ??C (98.9 ??F)] Heart Rate: [63-78] Resp: [10-22] BP: (123-159)/(82-110) SpO2: [92 %-95 %] Heart Rate from SpO2: [63 bpm-77 bpm] I/O: Intake/Output Summary (Last 24 hours) at 10/04/2023 0614 Last data filed at 10/04/2023 0600 Gross per 24 hour Intake 820 ml Output 1218 ml Net -398 ml Drains: R EVD = 168cc, patent GEN:NAD, awake in bed NEURO: AA+Ox3 Speech fluent and appropriate. PERRL. EOMI with baseline dysconjugate gaze due to R exotropia. No superior gaze restriction today. No facial asymmetry Tongue midline No pronator drift MOTOR: 5/5 LT sensation intact x 4 R EVD site CDI R chest incision CDI with nylon LABS: Recent Labs 10/03/23 0413 WBC 13.41* HGB 16.3 PLATELET 239 Recent Labs 10/03/23 2249 10/03/233 10/03/23 0413 NA -- 131* 132* K 3.8 -- 3.7 CL -- 100 101 CO2 -- 17* 19* BUN -- 16 18 CREATININE -- 0.99 1.07 No results for input(s): PT, INR in the last 72 hours. IMAGING: None new Assessment: 52 y.o. 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 Now admitted due to c/f shunt malfunction/infection. He is s/p shunt explantation and placement of R EVD. Patient with improvement since EVD replacement, now at 0. Will continue as is for now with supportive care and IV abx per ID. Following cultures for timing of shunt replacement. Surveillance CTH today with improvement in ventricular caliber shake backboard notcher to his baseline and his sx of ALICEA and fatigue now resolved. Recently with hyponatremia, will obtain urine labs this morning. Plan: -Q2 neuro checks, Q2 VS -EVD open @ 0, not transducing -ID consult - following recs -advance diet as tolerated -bowel regimen -DVT ppx SCDs, hold SQH -SBP 90-160 -Will discuss VPS insertion timing -Dispo pending course For question please call NSGY pager [phone] Laila Ricci MD 10/04/2023 6:14 AM Clinical Documentation Improvement: Active Hospital Problems Diagnosis Shunt malfunction Resolved Hospital Problems No resolved problems to display. * Laila Ricci MD - 10/03/2023 5:23 PM EDT [facility] NEUROSURGERY PROGRESS NOTE ID: Chapin Costa 52 y.o. male : 1970 LOS: 10 Neurosurgical Procedures this Admission: , Dr. Jimenez: VPS explantation, R EVD placement INTERVAL Hx: -SANIA -EVD self removed yesterday, replaced and remains patent -Per patient, ALICEA resolved and feeling more himself -CSF remains NGTD MEDICATIONS: Scheduled Meds: melatonin 6 mg Oral Nightly hydrOXYzine 25 mg Oral Nightly levothyroxine 25 mcg Oral Daily metoprolol succinate XL 25 mg Oral Daily pantoprazole EC 40 mg Oral Daily sertraline 200 mg Oral Daily topiramate 25 mg Oral Daily sodium chloride 0.9 % (flush) 5 mL Intravenous BID docusate sodium 100 mg Oral BID vancomycin 1.25 g Intravenous Q12H And diphenhydrAMINE 25 mg Intravenous Q12H Continuous Infusions: PRN: acetaminophen, 1,000 mg, Q6H PRN Or acetaminophen, 975 mg, Q6H PRN Or acetaminophen, 650 mg, Q6H PRN lidocaine, 3 mL, Once PRN ondansetron, 4 mg, Q8H PRN HYDROmorphone, 0.2 mg, Q4H PRN calcium carbonate, 500 mg, Q6H PRN polyethylene glycoL, 17 g, Daily PRN senna-docusate, 2 tablet, BID PRN sodium chloride 0.9 % (flush), 5-20 mL, Q1 Min PRN lidocaine, 0.3 mL, Once PRN labetaloL, 20 mg, Q2H PRN hydrALAZINE, 10 mg, Q2H PRN potassium chloride ER, 40 mEq, Q4H PRN Or potassium chloride ER, 20 mEq, Q4H PRN bisacodyL, 10 mg, Daily PRN vancomycin, , Per Pharmacy oxyCODONE, 5 mg, Q4H PRN BUPivacaine-EPINEPHrine, , PRN thrombin (Bovine), , PRN EXAM: Temp: [36.9 ??C (98.4 ??F)-37.8 ??C (100 ??F)] Heart Rate: [70-83] Resp: [10-22] BP: (122-138)/(78-103) SpO2: [92 %-95 %] Heart Rate from SpO2: [69 bpm-96 bpm] I/O: Intake/Output Summary (Last 24 hours) at 10/03/2023 1724 Last data filed at 10/03/2023 1600 Gross per 24 hour Intake 710 ml Output 1136 ml Net -426 ml Drains: R EVD = 141cc, patent GEN:NAD, awake in bed NEURO: AA+Ox3 Speech fluent and appropriate. PERRL. EOMI with baseline dysconjugate gaze due to R exotropia. No superior gaze restriction today. No facial asymmetry Tongue midline No pronator drift MOTOR: 5/5 LT sensation intact x 4 R EVD site CDI R chest incision CDI with nylon LABS: Recent Labs 10/03/23 0413 10/01/23 0538 WBC 13.41* 10.65* HGB 16.3 17.4* PLATELET 239 252 Recent Labs 10/03/23 0413 10/01/23 0538 NA 132* 134* K 3.7 3.9 CL 101 99 CO2 19* 21* BUN 18 18 CREATININE 1.07 1.08 No results for input(s): PT, INR in the last 72 hours. IMAGING: None new Assessment: 52 y.o. 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 Now admitted due to c/f shunt malfunction/infection. He is s/p shunt explantation and placement of R EVD. Patient with improvement since EVD replacement, now at 0. Will continue as is for now with supportive care and IV abx per ID. Following cultures for timing of shunt replacement. Plan: -Q4 neuro checks, Q2 VS -EVD open @ 0, not transducing -ID consult - following recs -advance diet as tolerated -bowel regimen -DVT ppx SCDs, hold [facility] -SBP 90-160 -Will discuss VPS insertion timing -Dispo pending course For question please call NSGY pager [phone] Laila Ricci MD 10/03/2023 5:24 PM Clinical Documentation Improvement: Active Hospital Problems Diagnosis Shunt malfunction Resolved Hospital Problems No resolved problems to display. * Daniela Murguia RN - 10/03/2023 2:01 PM EDT Page Sent Successfully Page Confirmation To Pager number: [phone] From Submitter: Daniela Murguia Urgency Level: FYI Callback Number: [phone] The following Message was sent: [] - Callback:[phone] ZULLY 345Igor J. Pt's mother arrived, requested to speak to Provider - Daniela Murguia The following status was returned from the room service server: Page for [phone] successfully sent to [facility] having status of Available. OK * Mirian Murrieta PA - 10/02/2023 2:02 PM EDT [facility] NEUROSURGERY EVD PROCEDURE NOTE PATIENT: Chapin Costa : 1970 DATE OF PROCEDURE: 10/02/2023 NAME OF OPERATION/PROCEDURE: RIGHT replacement of ventriculostomy (external ventricular drain [EVD]) PREOPERATIVE DIAGNOSIS: hydrocephalus POSTOPERATIVE DIAGNOSIS: Same ATTENDING SURGEON(S): Dr. Colon RESIDENT SURGEONS(S): Mirian Araiza PA ANESTHESIA: Local anesthetic with lidocaine and epinephrine OPERATIVE FINDINGS: 1. Successful placement of ventricular catheter 2. 2 pass(es) INDICATIONS FOR PROCEDURE: After risks, benefits, and alternatives were discussed with the patient's family at length, a written consent was obtained. Risks discussed included but are not limited to infection, bleeding, CSF leak, injury to surrounding structures, weakness, paralysis, pain, scar, failure to improve symptoms, need for further surgery, coma, and . DESCRIPTION OF PROCEDURE: Informed consent was obtained as above. A standard timeout was performed confirming the correct patient, procedure, and laterality. Prophylactic ancef 2g was administered. The patient's head was positioned in the neutral position at 30 degrees of elevation. The right frontal aspect of the head was prepped with chloraprep x2 and infiltrated with 4 cc of 1% lidocaine without epinephrine for local anesthesia. The surgical field was draped in the usual sterile fashion. Isabella and sutures securing the EVD were removed and the EVD was removed completely. The prior gala hole was located and the sharp end of the trochar was used to assure the path through the dura. The EVD catheter was carefully advanced to 7.5 cm at the skin. The stylette was then removed with pink tinged CSF obtained after 2 passes. The EVD was tunneled out postero-medially via a separate skin incision using a trochar, secured with a purse string suture, and connected to the drainage chamber. The skin incision was closed with isabella and the catheter secured to the skin with isabella. Drapes were removed. Scalp was cleaned with Ray-Ratna sponge. A chlorhexidine tegaderm dressingwas applied. Excellent hemostasis was obtained. CSF was noted to be draining into the drainage chamber appropriately at the end of the procedure. The patient tolerated the procedure well with no complications. ESTIMATED BLOOD LOSS: Minimal COMPLICATIONS: None SPECIMENS: None IMPLANTS: EVD TYPE: Medtronic Cook 1.9 ventricular catheter ANTIBIOTIC IMED CATHETER: Yes INSTRUMENT COUNT: All instrument counts were correct at the end of the procedure. PLAN: -EVD open at 0 cm H20 -Not transducing on step-down -HOB > 30 degrees -Non-contrast CT head MARVA Reeves 10/02/2023 2:06 PM * Mo Marcus MD - 10/02/2023 9:38 AM EDT [facility] NEUROSURGERY PROGRESS NOTE ID: Chapin Costa 52 y.o. male : 1970 LOS: 9 Neurosurgical Procedures this Admission: , Dr. Jimenez: VPS explantation, R EVD placement INTERVAL Hx: EVD w/d on exam this am. Still patient. Neurostable. MEDICATIONS: Scheduled Meds: heparin (porcine) 5,000 Units Subcutaneous 2 times per day melatonin 6 mg Oral Nightly hydrOXYzine 25 mg Oral Nightly levothyroxine 25 mcg Oral Daily metoprolol succinate XL 25 mg Oral Daily pantoprazole EC 40 mg Oral Daily sertraline 200 mg Oral Daily topiramate 25 mg Oral Daily sodium chloride 0.9 % (flush) 5 mL Intravenous BID acetaminophen 1,000 mg Oral Q6H DAMIEN Or acetaminophen 975 mg Oral Q6H DAMIEN Or acetaminophen 650 mg Rectal Q6H DAMIEN docusate sodium 100 mg Oral BID vancomycin 1.25 g Intravenous Q12H And diphenhydrAMINE 25 mg Intravenous Q12H Continuous Infusions: PRN: lidocaine, 3 mL, Once PRN ondansetron, 4 mg, Q8H PRN HYDROmorphone, 0.2 mg, Q4H PRN calcium carbonate, 500 mg, Q6H PRN polyethylene glycoL, 17 g, Daily PRN senna-docusate, 2 tablet, BID PRN sodium chloride 0.9 % (flush), 5-20 mL, Q1 Min PRN lidocaine, 0.3 mL, Once PRN labetaloL, 20 mg, Q2H PRN hydrALAZINE, 10 mg, Q2H PRN potassium chloride ER, 40 mEq, Q4H PRN Or potassium chloride ER, 20 mEq, Q4H PRN bisacodyL, 10 mg, Daily PRN vancomycin, , Per Pharmacy oxyCODONE, 5 mg, Q4H PRN BUPivacaine-EPINEPHrine, , PRN thrombin (Bovine), , PRN EXAM: Temp: [36.6 ??C (97.9 ??F)-37 ??C (98.6 ??F)] Heart Rate: [66-81] Resp: [13-19] BP: (112-132)/(78-99) SpO2: [92 %-95 %] Heart Rate from SpO2: [66 bpm-75 bpm] I/O: Intake/Output Summary (Last 24 hours) at 10/02/2023 0938 Last data filed at 10/02/2023 0800 Gross per 24 hour Intake 1240 ml Output 476 ml Net 764 ml Drains: R EVD = 98cc, patent GEN:NAD, awake in bed NEURO: AA+Ox3 Speech fluent and appropriate. PERRL. EOMI with baseline dysconjugate gaze due to R exotropia. No facial asymmetry Tongue midline No pronator drift MOTOR: 5/5 LT sensation intact x 4 R EVD site CDI R chest incision CDI with nylon EVD @10 - 166cc LABS: Recent Labs 10/01/23 0538 WBC 10.65* HGB 17.4* PLATELET 252 Recent Labs 10/01/23 0538 NA 134* K 3.9 CL 99 CO2 21* BUN 18 CREATININE 1.08 No results for input(s): PT, INR in the last 72 hours. IMAGING: None new Assessment: 52 y.o. 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 Now admitted due to c/f shunt malfunction/infection. He is s/p shunt explantation and placement of R EVD. Now continued on IV Vancomycin with ID guidance which is much appreciated. Will continue to follow culture data and provide supportive care. Plan to await CSF finalization before reimplantation of the shunt. Patient with improvement in ALICEA/fatigue since dropping EVD to 10 on 09/29. Will continue as is for nowwith supportive care. Plan: -Q4 neuro checks, Q2 VS -EVD open @ 10, not transducing -ID consult - following recs -advance diet as tolerated -bowel regimen -DVT ppx SCDs, SQH -SBP 90-160 -Will discuss VPS insertion timing with Dr. Jimenez -Leslie pending course For question please call ByRead pager [phone] Mo Marcus MD 10/02/2023 9:38 AM Clinical Documentation Improvement: Active Hospital Problems Diagnosis Shunt malfunction Resolved Hospital Problems No resolved problems to display. * Mirian Murrieta PA - 10/02/2023 9:30 AM EDT Notified by RN EVD dressing had come undone and sutures appeared to be dislodged. Upon inspection, securing suture was not longer secured to the scalp and dressing was coming off onall edges. EVD appeared to have pulled back approximately 1 inch from scalp, EVD sitting at 6cm at scalp line. EVD remained patent. Lidocaine injected prior to securing EVD with 1 purse string suture at insertion site with alyssia sandal around catheter, 2 isabella securing catheter in circular fashion and sterile bandage placed over site reinforced with extra tape. CTH ordered to confirm EVD placement. Resident and attending notified. MARVA Reeves 9:34 AM * Daniela Murguia RN - 10/02/2023 7:51 AM EDT Page Sent Successfully Page Confirmation To Pager number: [phone] From Submitter: Daniela Murguia Urgency Level: Urgent Callback Number: [phone] The following Message was sent: [Urgent] - Callback: RM [phone], Wilma Costa. Please call about EVD dressing/placement immediately thx - Daniela Murguia The following status was returned from the room service server: Page for [phone] successfully sent to [phone] having status of Available. * Daniela Murguia RN - 10/02/2023 7:39 AM EDT Page Sent Successfully Page Confirmation To Pager number: [phone] From Submitter: Daniela Murguia Urgency Level: Call Me Callback Number: [phone] The following Message was sent: [Call Me] - Callback: Rm 345. Gideon Costa EVD Dressing out of place, sutures not intact. - Daniela Murguia The following status was returned from the room service server: Page for [phone] successfully sent to [phone] having status of Available. OK * Madina Rodriguez RN - 10/01/2023 2:21 PM EDTSummary: Change in vision per Pt Pt states he is unable to move his eyes to look up, this is new this afternoon, he states it hurts when he attempts to look up. Primary RN is off the unit, paged the team to advise of change. Page Sent Successfully Page Confirmation To Pager number: [phone] From Submitter: Madina Rodriguez Urgency Level: Call Me Callback Number: [phone] The following Message was sent: [Call Me] - Callback:[phone] Nawaf Costa Pt states he is unable to look up which is new, his RN is at lunch - Madina Rodriguez The following status was returned from the room service server: Page for [phone] successfully sent to [phone] having status of Available. * Tavia Linton DT - 10/01/2023 12:36 PM EDT Nutrition Services Note - Low Nutrition Acuity Chapin Costa is a 52 y.o. male Reason for intervention: hospital day 9 Nutrition Plan: Continue current diet Encourage good PO Updated wt requested Monitor PO intakes Pt screened for hospital length of stay and sign writer hand met pt at bedside. Pt stated that his appetite has been okay and that he is able to finish 75-100% of his meals. Pt denied any difficulty chewing/swallowing or any nausea/vomiting. Pt was unsure of his UBW. Pt has no nutritional questions or concerns. Pt has had varying(0-100%) PO intakes recorded over the last week. One 0% was recorded on 09/23, 09/25,and 09/26. According to dining software pt ordered ~1975 kcals and ~66g protein over the last four days. The last recorded wt took place on 09/23, and wt is trending up. Updated wt has been requested from RN. Clinical nutrition to monitor and follow. Active Orders Diet Regular diet Frequency: Effective Now Number of Occurrences: Until Specified Admit Weight: 81.65 kg Estimated body mass index is 29.6 kg/m?? as calculated from the following: Height as of this encounter: 167.6 cm (5' 5.98). Weight as of this encounter: 83.1 kg (183 lb 4.8 oz). Wt Readings from Last 5 Encounters: 09/24/23 83.1 kg (183 lb 4.8 oz) 08/13/23 86.9 kg (191 lb 9.6 oz) 07/23/23 85.3 kg (188 lb) 07/15/23 84.8 kg (186 lb 14.4 oz) 07/15/23 87.5 kg (192 lb 14.4 oz) Weight loss: none Appetite: Excellent (75%-100%) Food allergies:no known food allergies Chewing/Swallowing difficulty: none Nausea/Vomiting: no nausea and no vomiting Last Bowel Movement: 09/30/23 Nutrition services to follow weekly through hospital course unless consulted in the interim. CESAR Sampson Saw Boss * Laila Ricci MD - 10/01/2023 6:15 AM EDT [facility] NEUROSURGERY PROGRESS NOTE ID: Chapin Costa 52 y.o. male : 1970 LOS: 8 Neurosurgical Procedures this Admission: , Dr. Jimenez: VPS explantation, R EVD placement INTERVAL Hx: -NAEON -CSF remains NGTD, remains on Vancomycin, afebrile -Repeat CSF sample sent yesterday per ID with benign profile -ALICEA a little better since EVD decreased to 10 yesterday MEDICATIONS: Scheduled Meds: heparin (porcine) 5,000 Units Subcutaneous 2 times per day melatonin 6 mg Oral Nightly hydrOXYzine 25 mg Oral Nightly levothyroxine 25 mcg Oral Daily metoprolol succinate XL 25 mg Oral Daily pantoprazole EC 40 mg Oral Daily sertraline 200 mg Oral Daily topiramate 25 mg Oral Daily sodium chloride 0.9 % (flush) 5 mL Intravenous BID acetaminophen 1,000 mg Oral Q6H DAMIEN Or acetaminophen 975 mg Oral Q6H DAMIEN Or acetaminophen 650 mg Rectal Q6H DAMIEN docusate sodium 100 mg Oral BID vancomycin 1.25 g Intravenous Q12H And diphenhydrAMINE 25 mg Intravenous Q12H Continuous Infusions: PRN: ondansetron, 4 mg, Q8H PRN HYDROmorphone, 0.2 mg, Q4H PRN calcium carbonate, 500 mg, Q6H PRN polyethylene glycoL, 17 g, Daily PRN senna-docusate, 2 tablet, BID PRN sodium chloride 0.9 % (flush), 5-20 mL, Q1 Min PRN lidocaine, 0.3 mL, Once PRN labetaloL, 20 mg, Q2H PRN hydrALAZINE, 10 mg, Q2H PRN potassium chloride ER, 40 mEq, Q4H PRN Or potassium chloride ER, 20 mEq, Q4H PRN bisacodyL, 10 mg, Daily PRN vancomycin, , Per Pharmacy oxyCODONE, 5 mg, Q4H PRN BUPivacaine-EPINEPHrine, , PRN thrombin (Bovine), , PRN EXAM: Temp: [36.5 ??C (97.7 ??F)-37.1 ??C (98.7 ??F)] Heart Rate: [65-92] Resp: [12-19] BP: (121-153)/(79-102) SpO2: [90 %-96 %] Heart Rate from SpO2: [65 bpm-92 bpm] I/O: Intake/Output Summary (Last 24 hours) at 10/01/2023 0615 Last data filed at 10/01/2023 0400 Gross per 24 hour Intake 1480 ml Output 398 ml Net 1082 ml Drains: R EVD = 98cc, patent GEN:NAD, awake in bed NEURO: AA+Ox3 Speech fluent and appropriate. PERRL. EOMI with baseline dysconjugate gaze due to R exotropia. No facial asymmetry Tongue midline No pronator drift MOTOR: RUE:5/5 LUE:5/5 RLE: 5/5 LLE: 5/5 LT sensation intact x 4 Dressing CDI (nylon in place) R EVD site CDI R chest incision CDI with nylon LABS: Recent Labs 09/29/23 014 WBC 11.89* HGB 16.6* PLATELET 266 Recent Labs 09/29/23 014 NA 137 K 4.0 CL 102 CO2 21* BUN 14 CREATININE 1.07 No results for input(s): PT, INR in the last 72 hours. IMAGING: None new Assessment: 52 y.o. 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 Now admitted due to c/f shunt malfunction/infection. He is s/p shunt explantation and placement of R EVD. Now continued on IV Vancomycin with ID guidance which is much appreciated. Will continue to follow culture data and provide supportive care. Plan to await CSF finalization before reimplantation of the shunt. Patient with improvement in ALICEA/fatigue since dropping EVD to 10 on 09/29. Will continue as is for nowwith supportive care. Plan: -Q4 neuro checks, Q2 VS -EVD open @ 10, not transducing\ -ID consult -follow cultures -advance diet as tolerated -bowel regimen -DVT ppx SCDs, SQH -SBP 90-160 -Dispo pending course For question please call ByRead pager [phone] Laila Ricci MD 10/01/2023 6:15 AM Clinical Documentation Improvement: Active Hospital Problems Diagnosis Shunt malfunction Resolved Hospital Problems No resolved problems to display. * Winnie Graham RN - 09/30/2023 9:48 AM EDT During VAS Purposeful Rounding, an assessment of your patient's venous access was performed fby theVascular Access Service. The following tasks were performed if needed and communicated to the bedside RN Choose all that apply: [x] PIV(s) checked for patency if daily need for flush needs to be performed [] CVAD was checked for patency if daily flush needs to be performed [x] IV tubing clamped or capped if needed [] Visual inspection of your patient's central line dressing integrity [] Review of indications for vascular access [] A photo was taken of your patient's central line [x] Visual inspection of your patient's IV dressing integrity [] Other While rounding an intervention was needed and communicated to the bedside RN Choose all that apply: [] Nonocclusive IV dressing addressed [] Nonocclusive CVAD dressing (please identify type of line) [] Infusion site leaking [] IV not patent and removed [] IV not indicated [] IV placed [] IV restarted [] Implanted Port, PICC or ML dressing changed if needed (either PRN or weekly) [] Other * Jenna Hernandez MD - 09/30/2023 8:51 AM EDT INFECTIOUS DISEASE INPATIENT FOLLOW UP Identification: Chapin Costa is a 52 y.o. male being followed by ID for WIND 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 infection. Interim Events: GPR from the 09/23/23 shunt culture is still not identified. 09/24 repeat CSF cell count was 80 WBCs (93% PMNs) with protein 30 and glucose 106. This is higher than the 4 WBCs on the fluid obtained on 09/23/23 from the WIND 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. Gram stain negative, culture negative. AFB and fungal cultures are not finalized yet Dr. Jimenez (Neurosurgery) is planning to replace EVD with new WIND 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. He has been afebrile with nearly normal WBC (11.89 - just above ULN) He does report the headache of these last few days is staying at level of 4/10. No nuchal ridigidity Allergies Allergies Allergen Reactions Latex Other reaction(s): hives with latex powdered gloves Penicillins Rash Childhood rash/hive with penicillin. Tolerated amox-clav and amp 05/2023. Tolerated cephalosporins. Tegaderm [Transparent Dressings] Itching and Other (See Comments) Patient needs no sting barrier wipes prior to Tegaderm application. Tolerates Tegaderm dressing post-application of skin barrier without itching/hives per patient. Vancomycin Hives and Itching Other reaction(s): Skin Rash Administering IV Benadryl prior to each Vancomycin dose seems to alleviate the reaction/allergy. Vancomycin Analogues Vancomycin Hcl Pertinent Medications: Vancomycin since 09/22 CTX d/c 09/23 Flagyl d/c 09/23 Physical Exam (24 hrs): Temp: [36.5 ??C (97.7 ??F)-37.2 ??C (98.9 ??F)] Heart Rate: [61-72] BP: (112-133)/(75-96) Resp: [12-20] SpO2: [90 %-94 %] Gen: NAD, nontoxic. His mother answers many questions for him HEENT: No sclera icterus or conjunctival injection. He is able to touch chin to chest without worsening ALICEA CV: no stigmata of IE MSK: no arthritis, no calf tenderness Skin: No rashes. His wounds from his now removed EVD are not appearing infected; his PIVs and EVD site look intact without cellulitis or discharge. Labs Lab Results Component Value Date WBC 11.89 (H) 09/29/2023 WBC 18.1 (H) 09/25/2023 RBC 5.73 (H) 09/29/2023 RBC 5.10 09/25/2023 HGB 16.6 (H) 09/29/2023 HGB 14.8 09/25/2023 HCT 49.2 (H) 09/29/2023 HCT 43.6 09/25/2023 MCV 85.9 09/29/2023 MCV 85.5 09/25/2023 MCH 29.0 09/29/2023 MCH 29.0 09/25/2023 MCHC 33.7 09/29/2023 MCHC 33.9 09/25/2023 PLATELET 266 09/29/2023 PLATELET 237 09/25/2023 RDWCV 13.1 09/29/2023 RDWCV 12.9 09/25/2023 Lab Results Component Value Date NA 137 09/29/2023 K 4.0 09/29/2023 CL 102 09/29/2023 CO2 21 (L) 09/29/2023 Lab Results Component Value Date BUN 14 09/29/2023 BUN 13 09/26/2023 CREATININE 1.07 09/29/2023 CREATININE 1.15 09/26/2023 Lab Results Component Value Date ALT 30 07/23/2023 AST 14 07/23/2023 ALKPHOS 124 07/23/2023 BILITOT 0.4 07/23/2023 Micro: TUBE TEST 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 culture growing Gram Positive Rods Imaging: Last was CT 09/23 Impression: Chapin Costa is a 52 y.o. 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 He has an EVD, and we have been awaiting speciation of the GPR that has grown on initial cultures, but not able to. He is doing well on vanco with decreased WBC and fever curve, and I discussed directly with the team it may be worthwhileto sterile resample CSF from the EVD for cell count and culture ahead of decisions for permanent new WIND 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. Recommendation: Continue vancomycin with AUC dosing per Pharm Antibiotic safety monitoring with weekly BUN/Cr, LFTs, CBC Monitor infection clearance by CBC, ESR, CRP and blood cultures q24h when febrile Repeat cell count and culture of CSF Replacing WIND 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 per Neurosurg Discussed with patient, family and team ID will follow with you. Jenna Hernandez MD ID Attending, plate grinder Page [phone] I spent a total of 35 minutes on the date of service on the [id number] encounter, chart review, clinical decision-making, documentation, and coordination of care regarding treatment of infection asdetailed in note above. * Laila Ricci MD - 09/30/2023 5:54 AM EDT [facility] NEUROSURGERY PROGRESS NOTE ID: Chapin Costa 52 y.o. male : 1970 LOS: 7 Neurosurgical Procedures this Admission: , Dr. Jimenez: VPS explantation, R EVD placement INTERVAL Hx: -NAEON -CSF remains NGTD, remains on Vancomycin -ALICEA somewhat worse in last couple of days and more tired which he associates with times he has malfunctioned MEDICATIONS: Scheduled Meds: heparin (porcine) 5,000 Units Subcutaneous 2 times per day melatonin 6 mg Oral Nightly hydrOXYzine 25 mg Oral Nightly levothyroxine 25 mcg Oral Daily metoprolol succinate XL 25 mg Oral Daily pantoprazole EC 40 mg Oral Daily sertraline 200 mg Oral Daily topiramate 25 mg Oral Daily sodium chloride 0.9 % (flush) 5 mL Intravenous BID acetaminophen 1,000 mg Oral Q6H DAMIEN Or acetaminophen 975 mg Oral Q6H DAMIEN Or acetaminophen 650 mg Rectal Q6H DAMIEN docusate sodium 100 mg Oral BID vancomycin 1.25 g Intravenous Q12H And diphenhydrAMINE 25 mg Intravenous Q12H Continuous Infusions: PRN: ondansetron, 4 mg, Q8H PRN HYDROmorphone, 0.2 mg, Q4H PRN calcium carbonate, 500 mg, Q6H PRN polyethylene glycoL, 17 g, Daily PRN senna-docusate, 2 tablet, BID PRN sodium chloride 0.9 % (flush), 5-20 mL, Q1 Min PRN lidocaine, 0.3 mL, Once PRN labetaloL, 20 mg, Q2H PRN hydrALAZINE, 10 mg, Q2H PRN potassium chloride ER, 40 mEq, Q4H PRN Or potassium chloride ER, 20 mEq, Q4H PRN bisacodyL, 10 mg, Daily PRN vancomycin, , Per Pharmacy oxyCODONE, 5 mg, Q4H PRN BUPivacaine-EPINEPHrine, , PRN thrombin (Bovine), , PRN EXAM: Temp: [36.6 ??C (97.8 ??F)-37.2 ??C (98.9 ??F)] Heart Rate: [61-72] Resp: [12-20] BP: (104-133)/(76-92) SpO2: [90 %-94 %] Heart Rate from SpO2: [62 bpm-74 bpm] I/O: Intake/Output Summary (Last 24 hours) at 09/30/2023 0554 Last data filed at 09/30/2023 0400 Gross per 24 hour Intake 1240 ml Output 1489 ml Net -249 ml Drains: R EVD = 74cc, patent GEN:NAD, awake in bed NEURO: AA+Ox3 Speech fluent and appropriate. PERRL. EOMI. No facial asymmetry Tongue midline No pronator drift MOTOR: RUE:5/5 LUE:5/5 RLE: 5/5 LLE: 5/5 LT sensation intact x 4 Dressing CDI (nylon in place) R EVD site CDI R chest incision CDI with nylon LABS: Recent Labs 09/29/23 0145 WBC 11.89* HGB 16.6* PLATELET 266 Recent Labs 09/29/23 0145 NA 137 K 4.0 CL 102 CO2 21* BUN 14 CREATININE 1.07 No results for input(s): PT, INR in the last 72 hours. IMAGING: None new Assessment: 52 y.o. 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 Now admitted due to c/f shunt malfunction/infection. He is s/p shunt explantation and placement of R EVD. Now continued on IV Vancomycin with ID guidance which is much appreciated. Will continue to follow culture data and provide supportive care. Plan to await CSF finalization likely before reimplantation of the shunt. Patient recently having more ALICEA and fatigue, which he has previously associated with shunt malfunction. His output is down recently as well from EVD, so will discuss dropping to 10. Plan: -Q4 neuro checks, Q2 VS -EVD open @ 15, not transducing, will discuss adjusting -ID consult -follow cultures -advance diet as tolerated -bowel regimen -DVT ppx SCDs, SQH -SBP 90-160 -Dispo pending course For question please call NSGY pager [phone] Laila Ricci MD 09/30/2023 5:54 AM Clinical Documentation Improvement: Active Hospital Problems Diagnosis Shunt malfunction Resolved Hospital Problems No resolved problems to display. * Daniela Murguia RN - 09/29/2023 10:14 AM EDT Page Sent Successfully Page Confirmation To Pager number: [phone] From Submitter: Daniela Murguia Urgency Level: Call Me Callback Number: [phone] The following Message was sent: [Call Me] - Callback:[phone] [facility] 345. Gideon Costa EVD drain output< 10 mL for 2 hour period - Daniela Murguia The following status was returned from the room service server: Page for [phone] successfully sent to [phone] having status of Available. * Laila Ricci MD - 09/29/2023 5:37 AM EDT [facility] NEUROSURGERY PROGRESS NOTE ID: Chapin Costa 52 y.o. male : 1970 LOS: 6 Neurosurgical Procedures this Admission: , Dr. Jimenez: VPS explantation, R EVD placement INTERVAL Hx: -NAEON -CSF remains NGTD, remains on Vancomycin MEDICATIONS: Scheduled Meds: heparin (porcine) 5,000 Units Subcutaneous 2 times per day melatonin 6 mg Oral Nightly hydrOXYzine 25 mg Oral Nightly levothyroxine 25 mcg Oral Daily metoprolol succinate XL 25 mg Oral Daily pantoprazole EC 40 mg Oral Daily sertraline 200 mg Oral Daily topiramate 25 mg Oral Daily sodium chloride 0.9 % (flush) 5 mL Intravenous BID acetaminophen 1,000 mg Oral Q6H DAMIEN Or acetaminophen 975 mg Oral Q6H DAMIEN Or acetaminophen 650 mg Rectal Q6H DAMIEN docusate sodium 100 mg Oral BID vancomycin 1.25 g Intravenous Q12H And diphenhydrAMINE 25 mg Intravenous Q12H Continuous Infusions: PRN: ondansetron, 4 mg, Q8H PRN HYDROmorphone, 0.2 mg, Q4H PRN calcium carbonate, 500 mg, Q6H PRN polyethylene glycoL, 17 g, Daily PRN senna-docusate, 2 tablet, BID PRN sodium chloride 0.9 % (flush), 5-20 mL, Q1 Min PRN lidocaine, 0.3 mL, Once PRN labetaloL, 20 mg, Q2H PRN hydrALAZINE, 10 mg, Q2H PRN potassium chloride ER, 40 mEq, Q4H PRN Or potassium chloride ER, 20 mEq, Q4H PRN bisacodyL, 10 mg, Daily PRN vancomycin, , Per Pharmacy oxyCODONE, 5 mg, Q4H PRN BUPivacaine-EPINEPHrine, , PRN thrombin (Bovine), , PRN EXAM: Temp: [36.2 ??C (97.2 ??F)-37.6 ??C (99.7 ??F)] Heart Rate: [57-83] Resp: [12-19] BP: (97-139)/(78-98) SpO2: [88 %-95 %] Heart Rate from SpO2: [57 bpm-79 bpm] I/O: Intake/Output Summary (Last 24 hours) at 09/29/2023 0537 Last data filed at 09/29/2023 0515 Gross per 24 hour Intake 1525 ml Output 577 ml Net 948 ml Drains: R EVD = 121cc, patent GEN:NAD, awake in bed NEURO: AA+Ox3 Speech fluent and appropriate. PERRL. EOMI. No facial asymmetry Tongue midline No pronator drift MOTOR: RUE:06/27 LUE:5 RLE: 06/27 LLE: 06/27 LT sensation intact x 4 Dressing CDI (nylon in place) R EVD site CDI R chest incision CDI with isabella LABS: Recent Labs 09/29/23 0145 09/27/23 0309 WBC 11.89* 10.74* HGB 16.6* 15.7 PLATELET 266 215 Recent Labs 09/29/23 0145 09/27/23 0309 NA 137 138 K 4.0 3.7 CL 102 105 CO2 21* 20* BUN 14 13 CREATININE 1.07 1.07 No results for input(s): PT, INR in the last 72 hours. IMAGING: None new Assessment: 52 y.o. 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 Now admitted due to c/f shunt malfunction/infection. He is s/p shunt explantation and placement of R EVD. Now continued on IV Vancomycin with ID guidance which is much appreciated. Will continue to follow culture data and provide supportive care. Plan to await CSF finalization likely before reimplantation of the shunt. Plan: -Q4 neuro checks, Q2 VS -EVD open @ 15, not transducing -ID consult -follow cultures -advance diet as tolerated -bowel regimen -DVT ppx SCDs, SQH -SBP 90-160 -Dispo pending course For question please call NSGY pager [phone] Laila Ricci MD 09/29/2023 5:37 AM Clinical Documentation Improvement: Active Hospital Problems Diagnosis Shunt malfunction Resolved Hospital Problems No resolved problems to display. * Peter Wood RN - 09/28/2023 9:41 PM EDT 9:41 PM Spoke to pt's mother, she verbalizes concern about a temp of 99.7F at 1600 and if ID was notified. Primary RN stated that will let ID know as per pt's mother request. Page Confirmation To Pager number: [phone] From Submitter: Peter Wood Urgency Level: FYI Callback Number: [phone] The following Message was sent: [FYI] - Callback:[phone] Wilma Costa pt's mother asked if I could let ID know pt spiked a 99.7F temp at 1600 - Peter Wood The following status was returned from the room service server: Page for [phone] successfully sent to [phone] having status of Available. 3:16 AM Messaged pharmacist regarding current vancomycin random level drawn at 0145 and it's 21.2. asking if scheduled dose for 0500 is ok or adjustment needed prior to administering it. * Deng Fuentes RN - 09/28/2023 4:03 PM EDT Page Sent Successfully Page Confirmation To Pager number: [phone] From Submitter: Deng Fuentes Urgency Level: Call Me Callback Number: [phone] The following Message was sent: [Call Me] - Callback:[phone] Igor, pt drain out 6cc, also pt report headache 06/02 no neuro deficits - Deng Fuentes The following status was returned from the room service server: Page for [phone] successfully sent to [phone] having status of Available. * Laila Ricci MD - 09/28/2023 5:37 AM EDT [facility] NEUROSURGERY PROGRESS NOTE ID: Chapin Costa 52 y.o. male : 1970 LOS: 5 Neurosurgical Procedures this Admission: , Dr. Jimenez: VPS explantation, R EVD placement INTERVAL Hx: -NAEON -CSF remains NGTD, remains on Vancomycin MEDICATIONS: Scheduled Meds: heparin (porcine) 5,000 Units Subcutaneous 2 times per day melatonin 6 mg Oral Nightly hydrOXYzine 25 mg Oral Nightly levothyroxine 25 mcg Oral Daily metoprolol succinate XL 25 mg Oral Daily pantoprazole EC 40 mg Oral Daily sertraline 200 mg Oral Daily topiramate 25 mg Oral Daily sodium chloride 0.9 % (flush) 5 mL Intravenous BID acetaminophen 1,000 mg Oral Q6H DAMIEN Or acetaminophen 975 mg Oral Q6H DAMIEN Or acetaminophen 650 mg Rectal Q6H DAMIEN docusate sodium 100 mg Oral BID vancomycin 1.25 g Intravenous Q12H And diphenhydrAMINE 25 mg Intravenous Q12H Continuous Infusions: PRN: calcium carbonate, 500 mg, Q6H PRN polyethylene glycoL, 17 g, Daily PRN senna-docusate, 2 tablet, BID PRN sodium chloride 0.9 % (flush), 5-20 mL, Q1 Min PRN lidocaine, 0.3 mL, Once PRN labetaloL, 20 mg, Q2H PRN hydrALAZINE, 10 mg, Q2H PRN potassium chloride ER, 40 mEq, Q4H PRN Or potassium chloride ER, 20 mEq, Q4H PRN bisacodyL, 10 mg, Daily PRN vancomycin, , Per Pharmacy oxyCODONE, 5 mg, Q4H PRN BUPivacaine-EPINEPHrine, , PRN thrombin (Bovine), , PRN HYDROmorphone, 0.2 mg, Q4H PRN EXAM: Temp: [36.1 ??C (97 ??F)-37.1 ??C (98.7 ??F)] Heart Rate: [57-81] Resp: [12-22] BP: (115-127)/(77-88) SpO2: [90 %-94 %] Heart Rate from SpO2: [54 bpm-81 bpm] I/O: Intake/Output Summary (Last 24 hours) at 09/28/2023 0537 Last data filed at 09/28/2023 0400 Gross per 24 hour Intake 1500 ml Output 2067 ml Net -567 ml Drains: R EVD = 102cc, patent GEN:NAD, awake in bed NEURO: AA+Ox3 Speech fluent and appropriate. PERRL. EOMI. No facial asymmetry Tongue midline No pronator drift MOTOR: RUE:5/5 LUE:5/5 RLE: 5/5 LLE: 5/5 LT sensation intact x 4 Dressing CDI (nylon in place) R EVD site CDI R chest incision CDI with isabella LABS: Recent Labs 09/27/23 0309 09/26/23 0331 WBC 10.74* 10.89* HGB 15.7 14.2 PLATELET 215 188 Recent Labs 09/27/23 0309 09/26/23 0330 NA 138 139 K 3.7 4.2 CL 105 107 CO2 20* 22 BUN 13 13 CREATININE 1.07 1.15 No results for input(s): PT, INR in the last 72 hours. IMAGING: None new Assessment: 52 y.o. 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 Now admitted due to c/f shunt malfunction/infection. He is s/p shunt explantation and placement of R EVD. Now continued on IV Vancomycin with ID guidance which is much appreciated. Will continue to follow culture data and provide supportive care. Plan to await CSF finalization likely before reimplantation of the shunt. Plan: -Q2 neuro checks -EVD open @ 15, not transducing -ID consult -follow cultures -advance diet as tolerated -bowel regimen -DVT ppx SCDs, SQH -SBP 90-160 -Dispo pending course For question please call NSGY pager [phone] Laila Ricci MD 09/28/2023 5:37 AM Clinical Documentation Improvement: Active Hospital Problems Diagnosis Shunt malfunction Resolved Hospital Problems No resolved problems to display. * Deng Fuentes RN - 09/27/2023 6:59 PM EDT Page Sent Successfully Page Confirmation To Pager number: [phone] From Submitter: Deng Fuentes Urgency Level: FYI Callback Number: [phone] The following Message was sent: [FYI] - Callback:[phone] Costa, drain output 7cc over 2hrs, notifying per order - Deng Fuentes The following status was returned from the room service server: Page for [phone] successfully sent to [phone] having status of Available. * Deng Fuentes RN - 09/27/2023 6:00 PM EDT Pt self reports hx of clinical depression. * Deng Fuentes RN - 09/27/2023 3:16 PM EDT Page Sent Successfully Page Confirmation To Pager number: [phone] From Submitter: Deng Fuentes Urgency Level: Call Me Callback Number: [phone] The following Message was sent: [Call Me] - Callback:[phone] Costa, EVD output 8cc for 2hrs, notifying per order - Deng Fuentes The following status was returned from the room service server: Page for [phone] successfully sent to [phone] having status of Available. * Dianelys Call RN - 09/27/2023 6:20 AM EDT OUTCOME EVALUATION NOTE: OUTCOME SUMMARY: Pt is A/Ox4. VSS on RA. Pt reports 3/10 headache, Tylenol administered. Continued IV ABX. EVD draining every 2 hours, paged MD for 5mL output after 2 hours with no new orders. No neuro changes. Care on going, safety maintained. PLAN MOVING FORWARD: Q2 VS Q2 NC EVD IV ABX INDIVIDUALIZED FALL PREVENTION INTERVENTIONS: Patient-specific fall risk factors per assessment: lines, wires, drains, and hospital environment. Assistance: SBA Supervision: Arms reach Surveillance: Bed locked in low position, call shell within reach, purposeful hourly rounding, clutter free environment, bed/chair alarm on. Patient-specific fall prevention interventions for sensory deficits provided: Yes CPG GOAL OUTCOME EVALUATION: Continue care plan as documented. * Laila Ricci MD - 09/27/2023 6:00 AM EDT [facility] NEUROSURGERY PROGRESS NOTE ID: Chapin Costa 52 y.o. male : 1970 LOS: 3 Neurosurgical Procedures this Admission: , Dr. Jimenez: VPS explantation, R EVD placement INTERVAL Hx: -NAEON -Remains on Vanc monotherapy per ID -Neuro stable, no complaints -All CSF samples remain NGTD MEDICATIONS: Scheduled Meds: heparin (porcine) 5,000 Units Subcutaneous 2 times per day melatonin 6 mg Oral Nightly hydrOXYzine 25 mg Oral Nightly levothyroxine 25 mcg Oral Daily metoprolol succinate XL 25 mg Oral Daily pantoprazole EC 40 mg Oral Daily sertraline 200 mg Oral Daily topiramate 25 mg Oral Daily sodium chloride 0.9 % (flush) 5 mL Intravenous BID acetaminophen 1,000 mg Oral Q6H DAMIEN Or acetaminophen 975 mg Oral Q6H DAMIEN Or acetaminophen 650 mg Rectal Q6H DAMIEN docusate sodium 100 mg Oral BID vancomycin 1.25 g Intravenous Q12H And diphenhydrAMINE 25 mg Intravenous Q12H Continuous Infusions: PRN: calcium carbonate, 500 mg, Q6H PRN polyethylene glycoL, 17 g, Daily PRN senna-docusate, 2 tablet, BID PRN sodium chloride 0.9 % (flush), 5-20 mL, Q1 Min PRN lidocaine, 0.3 mL, Once PRN labetaloL, 20 mg, Q2H PRN hydrALAZINE, 10 mg, Q2H PRN potassium chloride ER, 40 mEq, Q4H PRN Or potassium chloride ER, 20 mEq, Q4H PRN bisacodyL, 10 mg, Daily PRN vancomycin, , Per Pharmacy oxyCODONE, 5 mg, Q4H PRN BUPivacaine-EPINEPHrine, , PRN thrombin (Bovine), , PRN HYDROmorphone, 0.2 mg, Q4H PRN EXAM: Temp: [36.3 ??C (97.4 ??F)-37.1 ??C (98.7 ??F)] Heart Rate: [57-77] Resp: [12-21] BP: (103-119)/(68-84) SpO2: [90 %-96 %] Heart Rate from SpO2: [57 bpm-77 bpm] I/O: Intake/Output Summary (Last 24 hours) at 09/26/20232000 Last data filed at 09/26/2023 1841 Gross per 24 hour Intake 890 ml Output 1019 ml Net -129 ml Drains: R EVD = 107cc, patent GEN:NAD, awake in bed NEURO: AA+Ox3 Speech fluent and appropriate. PERRL. EOMI. No facial asymmetry Tongue midline No pronator drift MOTOR: RUE:5/5 LUE:5/5 RLE: 5/5 LLE: 5/5 LT sensation intact x 4 Dressing CDI (nylon in place) R EVD site CDI R chest incision CDI with isabella LABS: Recent Labs 09/26/23 0331 09/25/23 0320 09/24/23 0030 WBC 10.89* 18.1* 11.6* HGB 14.2 14.8 16.0 PLATELET 188 237 213 Recent Labs 09/26/23 0330 09/25/23 0320 09/24/23 0030 NA 139 141 139 K 4.2 4.2 3.8 CL 107 107 104 CO2 22 22 23 BUN 13 13 13 CREATININE 1.15 1.08 0.89 No results for input(s): PT, INR in the last 72 hours. IMAGING: None new Assessment: 52 y.o. 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 Now admitted due to c/f shunt malfunction/infection. He is s/p shunt explantation and placement of R EVD. Now continued on IV Vancomycin with ID guidance which is much appreciated. Will continue to follow culture data and provide supportive care. May be able to reconsider shunt implantation this week if cultures reassuring per ID. Plan: -Q2 neuro checks -EVD open @ 15, not transducing -ID consult -follow cultures -advance diet as tolerated -bowel regimen -DVT ppx SCDs, SQH -SBP 90-160 -Dispo pending course For question please call NSGY pager [phone] Laila Ricci MD 09/26/2023 8:01 PM Clinical Documentation Improvement: Active Hospital Problems Diagnosis Shunt malfunction Resolved Hospital Problems No resolved problems to display. * Dianelys Call RN - 09/27/2023 1:33 AM EDT 1:33 AM Page Sent Successfully Page Confirmation To Pager number: [phone] From Submitter: Dianelys Call Urgency Level: Call Me Callback Number: [phone] The following Message was sent: [Call Me] - Callback:[phone] Nawaf Costa- last EVD output was 5mL. - Dianelys Call The following status was returned from the room service server: Page for [phone] successfully sent to [phone] having status of Available. * Robin Jones RN - 09/26/2023 4:49 PM EDT Paged NST for EVD output of only 4ml over the past two hours. Asked if okay to drop to drain, no new orders. * Laila Ricci MD - 09/26/2023 9:41 AM EDT [facility] NEUROSURGERY PROGRESS NOTE ID: Chapin Costa 52 y.o. male : 1970 LOS: 3 Neurosurgical Procedures this Admission: , Dr. Jimenez: VPS explantation, R EVD placement INTERVAL Hx: -NAEON -Remains on Vanc monotherapy per ID -Repeat CSF sent yesterday which is NGTD as are the two samples prior -Remains AF, no complaints MEDICATIONS: Scheduled Meds: heparin (porcine) 5,000 Units Subcutaneous 2 times per day melatonin 6 mg Oral Nightly hydrOXYzine 25 mg Oral Nightly levothyroxine 25 mcg Oral Daily metoprolol succinate XL 25 mg Oral Daily pantoprazole EC 40 mg Oral Daily sertraline 200 mg Oral Daily topiramate 25 mg Oral Daily sodium chloride 0.9 % (flush) 5 mL Intravenous BID acetaminophen 1,000 mg Oral Q6H DAMIEN Or acetaminophen 975 mg Oral Q6H DAMIEN Or acetaminophen 650 mg Rectal Q6H DAMIEN docusate sodium 100 mg Oral BID vancomycin 1.25 g Intravenous Q12H And diphenhydrAMINE 25 mg Intravenous Q12H Continuous Infusions: PRN: calcium carbonate, 500 mg, Q6H PRN polyethylene glycoL, 17 g, Daily PRN senna-docusate, 2 tablet, BID PRN sodium chloride 0.9 % (flush), 5-20 mL, Q1 Min PRN lidocaine, 0.3 mL, Once PRN labetaloL, 20 mg, Q2H PRN hydrALAZINE, 10 mg, Q2H PRN potassium chloride ER, 40 mEq, Q4H PRN Or potassium chloride ER, 20 mEq, Q4H PRN bisacodyL, 10 mg, Daily PRN vancomycin, , Per Pharmacy oxyCODONE, 5 mg, Q4H PRN BUPivacaine-EPINEPHrine, , PRN thrombin (Bovine), , PRN HYDROmorphone, 0.2 mg, Q4H PRN EXAM: Temp: [36.5 ??C (97.7 ??F)-37 ??C (98.6 ??F)] Heart Rate: [57-77] Resp: [13-20] BP: (95-111)/(57-83) SpO2: [90 %-96 %] Heart Rate from SpO2: [57 bpm-77 bpm] I/O: Intake/Output Summary (Last 24 hours) at 09/26/2023 0941 Last data filed at 09/26/2023 0845 Gross per 24 hour Intake 1180 ml Output 1773 ml Net -593 ml Drains: R EVD = 179cc, patent GEN:NAD, awake in bed NEURO: AA+Ox3 Speech fluent and appropriate. PERRL. EOMI. No facial asymmetry Tongue midline No pronator drift MOTOR: RUE:5/5 LUE:5/5 RLE: 5/5 LLE: 5/5 LT sensation intact x 4 Dressing CDI (nylon in place) R EVD site CDI LABS: Recent Labs 09/26/23 0331 09/25/23 0320 09/24/23 0030 WBC 10.89* 18.1* 11.6* HGB 14.2 14.8 16.0 PLATELET 188 237 213 Recent Labs 09/26/23 0330 09/25/23 0320 09/24/23 0030 NA 139 141 139 K 4.2 4.2 3.8 CL 107 107 104 CO2 22 22 23 BUN 13 13 13 CREATININE 1.15 1.08 0.89 Recent Labs 09/23/23 1810 PT 11.7 INR 1.0 IMAGING: CTH: 1. Ventricular catheter tip just above the foramen of Girish. 2. Slightly increased size of small ventricular system. 3. No acute intracranial hemorrhage. Assessment: 52 y.o. 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 Now admitted due to c/f shunt malfunction/infection. He is s/p shunt explantation and placement of R EVD. Now continued on IV Vancomycin with ID guidance which is much appreciated. Will continue to follow culture data and provide supportive care. May be able to reconsider shunt implantation this week if cultures reassuring per ID. Plan: -Q2 neuro checks -EVD open @ 15, not transducing -ID consult -follow cultures -advance diet as tolerated -bowel regimen -DVT ppx SCDs, SQH -SBP 90-160 -Dispo pending course For question please call NSGY pager [phone] Laila Ricci MD 09/26/2023 9:41 AM Clinical Documentation Improvement: Active Hospital Problems Diagnosis Shunt malfunction Resolved Hospital Problems No resolved problems to display. * Robin Jones RN - 09/25/2023 8:54 AM EDT OK to hold Metoprolol this Am for SBP <100 per PA. * Laila Ricci MD - 09/25/2023 5:09 AM EDT [facility] NEUROSURGERY PROGRESS NOTE ID: Chapin Costa 52 y.o. male : 1970 LOS: 2 Neurosurgical Procedures this Admission: , Dr. Jimenez: VPS explantation, R EVD placement INTERVAL Hx: -NAEON -Remains on Vanc monotherapy per ID with Benadryl for rash noted during infusion in past, per patient no rash and feeling fine when administered -Denies pain, feeling better than preop, less sleepy -Afebrile -Postop CT done MEDICATIONS: Scheduled Meds: melatonin 6 mg Oral Nightly hydrOXYzine 25 mg Oral Nightly levothyroxine 25 mcg Oral Daily metoprolol succinate XL 25 mg Oral Daily pantoprazole EC 40 mg Oral Daily sertraline 200 mg Oral Daily topiramate 25 mg Oral Daily sodium chloride 0.9 % (flush) 5 mL Intravenous BID acetaminophen 1,000 mg Oral Q6H DAMIEN Or acetaminophen 975 mg Oral Q6H DAMIEN Or acetaminophen 650 mg Rectal Q6H DAMIEN senna-docusate 2 tablet Oral BID docusate sodium 100 mg Oral BID vancomycin 1.25 g Intravenous Q12H And diphenhydrAMINE 25 mg Intravenous Q12H Continuous Infusions: sodium chloride 0.9% 100 mL/hr (09/24/232011) PRN: calcium carbonate, 500 mg, Q6H PRN polyethylene glycoL, 17 g, Daily PRN senna-docusate, 2 tablet, BID PRN sodium chloride 0.9 % (flush), 5-20 mL, Q1 Min PRN lidocaine, 0.3 mL, Once PRN labetaloL, 20 mg, Q2H PRN hydrALAZINE, 10 mg, Q2H PRN potassium chloride ER, 40 mEq, Q4H PRN Or potassium chloride ER, 20 mEq, Q4H PRN bisacodyL, 10 mg, Daily PRN vancomycin, , Per Pharmacy oxyCODONE, 5 mg, Q4H PRN BUPivacaine-EPINEPHrine, , PRN thrombin (Bovine), , PRN HYDROmorphone, 0.2 mg, Q4H PRN EXAM: Temp: [36.1 ??C (97 ??F)-37.1 ??C (98.8 ??F)] Heart Rate: [50-83] Resp: [11-23] BP: (88-135)/(52-81) SpO2: [89 %-98 %] Heart Rate from SpO2: [50 bpm-84 bpm] I/O: Intake/Output Summary (Last 24 hours) at 09/25/2023 0509 Last data filed at 09/25/2023 0300 Gross per 24 hour Intake 2770 ml Output 1587 ml Net 1183 ml Drains: R EVD = 117cc, patent GEN:NAD, awake in bed NEURO: AA+Ox3 Speech fluent and appropriate. PERRL. EOMI. No facial asymmetry Tongue midline No pronator drift MOTOR: RUE:5/5 LUE:5/5 RLE: 5/5 LLE: 5/5 LT sensation intact x 4 Dressing CDI (nylon in place) R EVD site CDI LABS: Recent Labs 09/25/23 0320 09/24/23 0030 09/23/23 1810 WBC 18.1* 11.6* 10.8* HGB 14.8 16.0 17.0* PLATELET 237 213 227 Recent Labs 09/25/23 0320 09/24/23 0030 09/23/23 1810 NA 141 139 137 K 4.2 3.8 3.8 CL 107 104 100 CO2 22 23 22 BUN 13 13 14 CREATININE 1.08 0.89 1.05 Recent Labs 09/23/23 1810 PT 11.7 INR 1.0 IMAGING: CTH: 1. Ventricular catheter tip just above the foramen of Girish. 2. Slightly increased size of small ventricular system. 3. No acute intracranial hemorrhage. Assessment: 52 y.o. 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 Now admitted due to c/f shunt malfunction/infection. He is s/p shunt explantation and placement of R EVD. Now continued on IV Vancomycin with ID guidance which is much appreciated. Will continue to follow culture data and provide supportive care. Plan: -Q2 neuro checks -EVD open @15, not transducing -ID consult -follow cultures -advance diet as tolerated -bowel regimen -DVT ppx SCDs -SBP 90-160 -Dispo pending course For question please call NSPushCall pager [phone] Laila Ricci MD 09/25/2023 5:09 AM Clinical Documentation Improvement: Active Hospital Problems Diagnosis Shunt malfunction Resolved Hospital Problems No resolved problems to display. * Winnie Graham RN - 09/24/2023 3:28 PM EDT During VAS Purposeful Rounding, an assessment of your patient's venous access was performed fby theVascular Access Service. The following tasks were performed if needed and communicated to the bedside RN Choose all that apply: [x] PIV(s) checked for patency if daily need for flush needs to be performed [] CVAD was checked for patency if daily flush needs to be performed [x] IV tubing clamped or capped if needed [] Visual inspection of your patient's central line dressing integrity [] Review of indications for vascular access [] A photo was taken of your patient's central line [x] Visual inspection of your patient's IV dressing integrity [] Other While rounding an intervention was needed and communicated to the bedside RN Choose all that apply: [] Nonocclusive IV dressing addressed [] Nonocclusive CVAD dressing (please identify type of line) [] Infusion site leaking [] IV not patent and removed [] IV not indicated [] IV placed [] IV restarted [] Implanted Port, PICC or ML dressing changed if needed (either PRN or weekly) [] Other * Cierra Cruz RN - 09/24/2023 2:10 PM EDT Notified neurosurgery pt had 0 ml output for the first hour. Neurosurgery wants to be notified of output less than 5 ml or greater then 20 ml/h. * Chrissy Prakash RN - 09/24/2023 12:23 PM EDT 1118 Ever received from OR and placed on monitors. Amrit LEE showing this RN EVD. Drain turned off by Amrit LEE. 1215 Ever to go to NSCU not back to NCCU. Paged [phone] regarding drain being off. 1220 Drain opened, at 15 cm H20 as ordered. 1240 Report to NSCU RN. 1300 Drain off and Ever transported to [facility] by this RN. * Mo Marcus MD - 09/24/2023 11:54 AM EDT [facility] Neurosurgery Consult / Inpatient Progress Note 09/24/23 11:55 AM Patient Name: Chapin Costa Patient Age: 52 y.o. Birthdate: 1970 Admit date: 09/23/2023 6:13 PM Length of stay: 1 Attending Physician: ANNITA DHALIWAL JENNIFER Reason for admission / consult: shunt malfunction HPI: Chapin Costa is a 52 y.o. 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 Now coming in with 3 days of fevers, headaches, and tenderness over the shunt valve behind the right ear. No drainage. No other infectious symptoms. PROCEDURES: Bedside shunt externalization; OR - s/p VPS explantation w/ Right EVD insertion. INTERVAL HX: POD0; Pt neuro and vital stable postoperatively MEDICATIONS: Scheduled Meds: [Transfer Hold] hydrOXYzine 25 mg Oral Nightly [Transfer Hold] levothyroxine 25 mcg Oral Daily [Transfer Hold] metoprolol succinate XL 25 mg Oral Daily [Transfer Hold] pantoprazole EC 40 mg Oral Daily [Transfer Hold] sertraline 200 mg Oral Daily [Transfer Hold] topiramate 25 mg Oral Daily sodium chloride 0.9 % (flush) 5 mL Intravenous BID [Transfer Hold] acetaminophen 1,000 mg Oral Q6H DAMIEN Or [Transfer Hold] acetaminophen 975 mg Oral Q6H DAMIEN Or [Transfer Hold] acetaminophen 650 mg Rectal Q6H DAMIEN [Transfer Hold] senna-docusate 2 tablet Oral BID [Transfer Hold] docusate sodium 100 mg Oral BID [Transfer Hold] cefTRIAXone 2 g Intravenous Q12H [Transfer Hold] metroNIDAZOLE 500 mg Intravenous Q8H [Transfer Hold] vancomycin 1.25 g Intravenous Q12H And [Transfer Hold] diphenhydrAMINE 12.5 mg Intravenous Q12H Continuous Infusions: PHENYLephrine [Transfer Hold] sodium chloride 0.9% 100 mL/hr (09/24/23 0800) PRN: [Transfer Hold] calcium carbonate, 500 mg, Q6H PRN [Transfer Hold] polyethylene glycoL, 17 g, Daily PRN [Transfer Hold] senna-docusate, 2 tablet, BID PRN sodium chloride 0.9 % (flush), 5-20 mL, Q1 Min PRN lidocaine, 0.3 mL, Once PRN [Transfer Hold] labetaloL, 20 mg, Q2H PRN [Transfer Hold] hydrALAZINE, 10 mg, Q2H PRN [Transfer Hold] potassium chloride ER, 40 mEq, Q4H PRN Or [Transfer Hold] potassium chloride ER, 20 mEq, Q4H PRN [Transfer Hold] bisacodyL, 10 mg, Daily PRN [Transfer Hold] vancomycin, , Per Pharmacy [Transfer Hold] oxyCODONE, 5 mg, Q4H PRN BUPivacaine-EPINEPHrine, , PRN thrombin (Bovine), , PRN HYDROmorphone, 0.2 mg, Q4H PRN naloxone, 0.04 mg, Q5 Min PRN HYDROmorphone, 0.2 mg, Q10 Min PRN Or HYDROmorphone, 0.4 mg, Q10 Min PRN fentaNYL (pf), 12.5 mcg, Q5 Min PRN Or fentaNYL (pf), 25 mcg, Q5 Min PRN ondansetron, 4 mg, Q30 Min PRN prochlorperazine, 5 mg, Q30 Min PRN VITALS: Temp: [36.1 ??C (97 ??F)-37 ??C (98.6 ??F)] Heart Rate: [49-74] Resp: [11-23] BP: (96-148)/(52-101) SpO2: [93 %-98 %] Heart Rate from SpO2: [48 bpm-68 bpm] INS/OUTS: Intake/Output Summary (Last 24 hours) at 09/24/2023 1155 Last data filed at 09/24/2023 1124 Gross per 24 hour Intake 3190 ml Output 485 ml Net 2705 ml DRAINS: EVD@15 EXAM: General: NAD HEENT: Normocephalic CV: Regular rate Pulmonary: Nonlabored breathing Neuro Exam: Wide awake, alert, oriented x4 Conversational, speech fluent, naming & repetition intact PERRL, EOMI, VFF, FS, TML, UPML, Shoulder shrug 5/5 No pronator drift, full strength throughout x4 Sensation grossly intact to light touch x4 FTN intact No hyperreflexia LABS: CBC: Recent Labs 09/24/23 0030 09/23/23 1810 WBC 11.6* 10.8* HGB 16.0 17.0* PLATELET 213 227 BMP: Recent Labs 09/24/23 0030 09/23/23 1810 NA 139 137 K 3.8 3.8 CL 104 100 CO2 23 22 BUN 13 14 CREATININE 0.89 1.05 Coags: Recent Labs 09/23/23 1810 PT 11.7 INR 1.0 IMAGING: CTH - slit ventricles with R frontal ventricular catheter in stable position (previous) ASSESSMENT: s/p VPS explant w/ R EVD placement PLAN/RECS: -Q2 neuro checks -EVD@15 -ID consult -follow cultures -advance diet as tolerated -bowel regimen -DVT ppx SCDs -CTH post op for EVD insertion -SBP 90-160 Consult service will continue to follow patient. We're signing off. Recommendations above, page if further consultation required. Neurosurgery Pager: [phone] Mo Marcus MD 09/24/2023 11:55 AM Clinical Documentation Improvement: Active Hospital Problems Diagnosis Shunt malfunction Resolved Hospital Problems No resolved problems to display. * Trip Murphy MD - 09/24/2023 4:41 AM EDT [facility] Assessment Note I established audio/visual communication with the patient's room, reviewed the eDH. History and Assessment: 52 y.o. with PMHx noted below who had fever of 100.7 and symptoms reminiscent of prior VPS malfunction/infections. Shunt was tapped; blood cultures taken. NCHCT w/o ventriculomegaly. WBC was 10,800. Shunt was placed in 1973 due to congenital issues and has had multilpe shunt revisions. 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 CTH was without acute changes or ventricularmegaly. CSF gram stain and cx w/ gram (+) rods. Patient Active Problem List Diagnosis Code Persistent headaches R51.9 Headache R51.9 Cervicalgia M54.2 Seizures R56.9 Hydrocephalus G91.9 Congenital hydrocephalus Q03.9 Shunt malfunction T85.618A Small bowel obstruction K56.609 CAMERA: No distress on RA Patient Vitals for the past 8 hrs: BP Temp Temp src Pulse Resp SpO2 Height Weight 09/24/23 0300 (!) 143/101 -- -- 51 11 93 % -- -- 09/24/23 0236 (!) 148/93 36.6 ??C (97.8 ??F) Oral 50 17 95 % 167.6 cm (5' 5.98) 83.1 kg (183 lb 4.8 oz) 09/24/23 0200 133/88 -- -- 50 -- 95 % -- -- 09/23/23 2344 132/82 -- -- -- -- 96 % -- -- Intake/Output Summary (Last 24 hours) at 09/24/2023 0441 Last data filed at 09/24/2023 0400 Gross per 24 hour Intake 1540 ml Output -- Net 1540 ml Recent Results (from the past 12 hour(s)) Basic Metabolic Panel (non-fasting) Result Value Glucose Lvl 167 BUN 14 Creatinine 1.05 Sodium 137 Potassium 3.8 Chloride 100 CO2 22 Anion Gap 15 Calcium 9.9 Estimated GFR 86 Sedimentation rate Result Value Sed Rate 47 (H) CRP, acute inflammation Result Value CRP 3.6 Hemogram Result Value WBC 10.8 (H) RBC 5.90 (H) Hemoglobin 17.0 (H) Hematocrit 49.4 (H) MCV 83.7 MCH 28.8 MCHC 34.4 Platelets 227 RDWSD 39.8 RDWCV 13.0 MPV 9.1 nRBC % Auto 0.0 nRBC Abs Auto 0.000 Differential, Automated Result Value Neutrophils % 66.3 Neutr Abs (ANC) 7.15 (H) Lymphocytes % 28.3 Lymphocytes Abs 3.1 Monocytes % 3.5 Monocyte Abs 0.4 Eosinophils % 1.0 Eosinophils Abs 0.1 Basophils % 0.7 Basophils Abs 0.1 Immature Gran % 0.20 Ute Gran Abs 0.02 Blue Tube HOLD Result Value Blue Hold Sample in lab. Gold Tube HOLD Result Value Gold Hold Sample in lab. 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 Shunt Culture Specimen: Cerebrospinal Shunt Fluid Result Value Gram Stain (A) Cytocentrifuge Gram Stain performed Neutrophils seen Rare Gram Positive Rods seen Results called to and read back by 09/24/23 01:01:08 Gina Harper Organism Gram Positive Rods (A) Basic Metabolic Panel (non-fasting) Result Value Glucose Lvl 89 BUN 13 Creatinine 0.89 Sodium 139 Potassium 3.8 Chloride 104 CO2 23 Anion Gap 12 Calcium 9.3 Estimated GFR 104 Hemogram Result Value WBC 11.6 (H) RBC 5.52 Hemoglobin 16.0 Hematocrit 47.0 MCV 85.1 MCH 29.0 MCHC 34.0 Platelets 213 RDWSD 39.5 RDWCV 12.8 MPV 9.5 nRBC % Auto 0.0 nRBC Abs Auto 0.000 Differential, Automated Result Value Neutrophils % 60.4 Neutr Abs (ANC) 6.98 (H) Lymphocytes % 32.2 Lymphocytes Abs 3.7 (H) Monocytes % 5.6 Monocyte Abs 0.6 Eosinophils % 1.1 Eosinophils Abs 0.1 Basophils % 0.4 Basophils Abs 0.0 Immature Gran % 0.30 Ute Gran Abs 0.03 POCT Glucose Result Value POC Glucose 97 Type and screen ([facility]ULCE [facility] Result Value ABORH Type A POSITIVE Patient BB History Found Expires at 2359 on: 09/27/2023 Ab Screen Interp Negative ABORH Recheck Status Result Value ABORH Type Recheck Completed Type and Screen Validity Result Value T&S only valid at [facility] [place] Calcium Ionized Whole Blood, CHANO Result Value pH Chano 7.39 ICa Whole Blood 1.20 A/P: #VPS infection -Vancomycin/ceftriaxone/metronidazole/neuro checks as per NCCU #Hypothyroidism -Levothyroxine #Seizure disorder -Topiramate This is a non-billable note. * Ellie Riddle RN - 09/24/2023 4:08 AM EDT Page Sent Successfully Page Confirmation To Pager number: [phone] From Submitter: Ellie Riddle Urgency Level: FYI Callback Number: [phone] The following Message was sent: [FYI] - Callback:[phone] [facility], [phone], need an additional iv. thank you - Ellie Riddle The following status was returned from the room service server: Page for [phone] successfully sent to [phone] having status of Available. documented in this encounter H&P Notes * Richard Valles MD - 09/24/2023 7:28 AM EDT [facility] NEUROSURGERY H&PNOTE ID: Chapin Costa 52 y.o. male : 1970 Reason for consult: Shunt malfunction HISTORY OF PRESENT ILLNESS: Chapin Costa is a 52 y.o. 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 Now coming in with 3 days of fevers, headaches, and tenderness over the shunt valve behind the right ear. No drainage. No other infectious symptoms. PAST MEDICAL HISTORY: Past Medical History: Diagnosis Date Depression Hearing loss r ear Hydrocephalus associated with congenital aqueduct stenosis Hyperlipidemia Hypertension Memory disorder Seizures Syncope and collapse Vision abnormalities related to hydrocephalus PAST SURGICAL HISTORY: Past Surgical History: Procedure Laterality Date CARPAL TUNNEL RELEASE Right CHOLECYSTECTOMY, LAPAROSCOPIC IR ALL DRAINAGE PROCEDURES 06/18/2023 IR All Drainage Procedures Bentley Arceo MD [facility] INTERVENTIONL RAD PRO ALVEOLOPLASTY W EXTRACTIONS, 4 OR MORE TEETH, PER QUADRANT N/A 10/18/2020 ALVEOPLASTY,IN CONJUNCTION WITH EXTRACTIONS,PER QUADRANT,ENT (WRVU 4.06) performed by Shan Rivero MD at [facility] OSC PRO EXTRACTION, ERUPTED TOOTH OR EXPOSED ROOT N/A 10/18/2020 EXTRACTION, ERUPTED TOOTH OR EXPOSED ROOT (WRVU 0.62) performed by Shan Rivero MD at [facility] OSC PRO IMPACT TOOTH REM BONY W/COMP N/A 10/18/2020 SURGICAL EXTRACTIONS, REMOVAL OF IMPACTED TOOTH, COMPLETELY BONY WITH UNUSUAL SURGICAL COMPLICATIONS (WRVU 2.91) performed by Shan Rivero MD at [facility] OSC PRO IMPACT TOOTH REMOV COMP BONY N/A 10/18/2020 SURGICAL EXTRACTIONS, REMOVAL OF IMPACTED TOOTH, COMPLETELY BONY (WRVU 1.93) performed by Shan Rivero MD at [facility] OSC PRO REMOVAL ERUPTED TOOTH WITH ELEVATION OF MUCOPERIOSTEAL FLAP Bilateral 10/18/2020 SURGICAL EXTRACTIONS REQUIRING ELEVATION OF MUCOPERIOSTEAL FLAP AND REMOVAL OF BONE OR SECTION OF TOOTH (WRVU 1.09) performed by Shan Rivero MD at [facility] OSC PRO REMOVAL, COMPLETE CSF SHUNT, W/O REPLACE Right 06/20/2023 @REMOVAL OF COMPLETE CSF SHUNT, W/O REPLACEMENT (WRVU 7.38) [facility]/REVISION, CSF SHUNT Right 06/09/2023 REVISION OR REPLACEMENT CSF SHUNT (WRVU 11.43) performed by Rhoda Jimenez MD at [facility] MAIN OR PRO REPLACEMENT/REVISION, CSF SHUNT Right 06/29/2023 REVISION OR REPLACEMENT CSF SHUNT (WRVU 11.43) performed by Rhoda Jimenez MD at [facility] CSI PRO RESECT SMALL INTEST, SINGL RESEC/ANAS N/A 07/03/2023 @BOWEL RESECTION, SMALL INTESTINE SINGLE ANASTOMOSIS (WRVU 20.82) performed by Frank Murray MD at [facility] MAIN OR PRO UNLISTED PROCEDURE NERVOUS SYSTEM Right 05/24/2022 EXPLORATION VENTRICULO-PERITONEAL SHUNT (WRVU 25.48) performed by Rhoda Jimenez MD at [facility] MAIN OR SHOULDER SURGERY ULNAR TUNNEL RELEASE Right VENTRICULOPERITONEAL SHUNT Multiple revisions - ~46 prior revisions MEDICATIONS: No current facility-administered medications on file prior to encounter. Current Outpatient Medications on File Prior to Encounter Medication Sig Dispense Refill hydrOXYzine (Atarax) 25 mg tablet Take 12.5 mg by mouth every 6 hours as needed for Anxiety. calcium-vitamin D3 600 mg calcium- 400 unit Tablet Take 1 tablet by mouth daily. cyanocobalamin, Vitamin B-12, (Vitamin B-12) 1,000 mcg tablet Take 1,000 mcg by mouth daily. [DISCONTINUED] calcium carbonate (TUMS) 200 mg calcium (500 mg) chewable tablet Take 1 tablet by mouth every 6 hours as needed (Abdominal cramping). [DISCONTINUED] senna-docusate (Pericolace) 8.6-50 mg Tablet Take 2 tablets by mouth 2 times daily as needed for Constipation. 60 tablet 0 atorvastatin (Lipitor) 40 mg tablet Take 40 mg by mouth daily. hydrOXYzine (Atarax) 25 mg tablet Take 25 mg by mouth nightly as needed (Insomnia). ARIPiprazole (Abilify) 10 mg tablet Take 10 mg by mouth daily. [DISCONTINUED] omeprazole (PriLOSEC) [address] capsule Take 20 mg by mouth daily. [DISCONTINUED] Vitamin B-12 5,000 mcg Tablet, Sublingual Take 5,000 mcg by mouth daily. [DISCONTINUED] polyethylene glycoL (Miralax) 17 gram oral powder packet Take 17 g by mouth daily asneeded. 14 each 0 Aimovig Autoinjector 70 mg/mL Auto-Injector Inject 70 mg as directed every 30 days. On the nd of every month [DISCONTINUED] acetaminophen (Tylenol) 500 mg Tablet Take 500 mg by mouth every 6 hours as needed. [DISCONTINUED] rizatriptan (MAXALT) 10 mg Tablet Take 1 tablet by mouth as needed for Migraine. 10 tablet 0 metoprolol succinate XL (Toprol-XL) 25 mg Tablet Sustained Release 24 hr Take 25 mg by mouth daily. [DISCONTINUED] topiramate (TOPAMAX) 25 mg Tablet Take 1 tablet by mouth 2 times daily. (Patient taking differently: Take 25 mg by mouth daily.) 60 tablet 5 levothyroxine (SYNTHROID) 25 mcg Tablet Take 25 mcg by mouth nightly. sertraline (ZOLOFT) 100 mg Tablet Take 150 mg by mouth daily. 0 testosterone cypionate (DEPOTESTOSTERONE CYPIONATE) 200 mg/mL Oil Inject 250 mg into the muscle every 14 days. 0 ALLERGIES: Allergies Allergen Reactions Latex Other reaction(s): hives with latex powdered gloves Penicillins Rash Childhood rash/hive with penicillin. Tolerated amox-clav and amp 05/2023. Tolerated cephalosporins. Tegaderm [Transparent Dressings] Itching and Other (See Comments) Patient needs no sting barrier wipes prior to Tegaderm application. Tolerates Tegaderm dressing post-application of skin barrier without itching/hives per patient. Vancomycin Hives and Itching Other reaction(s): Skin Rash Administering IV Benadryl prior to each Vancomycin dose seems to alleviate the reaction/allergy. Vancomycin [facility] Vancomycin [facility] SOCIAL HISTORY: Social History Socioeconomic History Marital status: Spouse name: Not on file Number of children: Not on file Years of education: Not on file Highest education level: Not on file Occupational History Not on file Tobacco Use Smoking status: Never Smokeless tobacco: Never Vaping Use Vaping status: Never Used Substance and Sexual Activity Alcohol use: No Drug use: No Sexual activity: Not on file Other Topics Concern Not on file Social History Narrative Not on file Social Determinants of Health Financial Resource Strain: Not on file Food Insecurity: No Food Insecurity (07/03/2023) Hunger Vital Sign Worried About Running Out of Food in the Last Year: Never true Ran Out of Food in the Last Year: Never true Transportation Needs: No Transportation Needs (07/03/2023) PRAPARE - Transportation Lack of Transportation (Medical): No Lack of Transportation (Non-Medical): No Physical Activity: Not on file Intimate Partner Violence: Not At Risk (09/24/2023) IPV Inpatient Questions Prevent Contact with Others: no Feels Threatened by Someone: no Feels Unsafe at Home: no Physical Signs of Abuse Present: no Housing Stability: Low Risk (07/03/2023) Housing Stability Vital Sign Unable to Pay for Housing in the Last Year: No Number of Places Lived in the Last Year: 1 Unstable Housing in the Last Year: No FAMILY HISTORY: Family History Problem Relation Age of Onset Muscular Dystrophy Cousin REVIEW OF SYSTEMS: As above in HPI, otherwise non-contributory. VITAL SIGNS: Visit Vitals BP 120/73 (BP Location (NBP): Right arm, Patient Position: Lying) Pulse 63 Temp 36.7 ??C (98 ??F) (Oral) Resp 14 Ht 167.6 cm (5' 5.98) Wt 83.1 kg (183 lb 4.8 oz) SpO2 96% BMI 29.60 kg/m?? PHYSICAL EXAM: General: NAD HEENT: Normocephalic Pulmonary: Nonlabored breathing Spine: Non tender Neuro Exam: Wide awake, alert, oriented x4 Conversational, speech fluent, naming & repetition intact PERRL, EOMI baseline right eye exotropia, VFF, FS, TML, shoulder shrug 5/5 No pronator drift MOTOR: RUE:5/5 LUE:5/5 RLE: 5/5 LLE: 5/5 Sensation grossly intact to light touch x4 LABS: CBC: Lab Results Component Value Date/Time WBC 11.6 (H) 09/24/2023 12:30 AM HGB 16.0 09/24/2023 12:30 AM PLATELET 213 09/24/2023 12:30 AM BMP: Lab Results Component Value Date/Time NA 139 09/24/2023 12:30 AM K 3.8 09/24/2023 12:30 AM CL 104 09/24/2023 12:30 AM CO2 23 09/24/2023 12:30 AM BUN 13 09/24/2023 12:30 AM CREATININE 0.89 09/24/2023 12:30 AM Coags: Lab Results Component Value Date INR 1.0 09/23/2023 PT 11.7 09/23/2023 PTT 35 09/23/2023 IMAGING: Head CT and shunt series: No ventriculomegaly or tubing discontinuities or kinks. Imaging independently reviewed / reviewed with radiology. ASSESSMENT: 52 y.o. 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 Now admitted with a CSF tap growing GPCs and shunt externalization which is demonstrating only veryslow CSF egress concerning for a proximal malfunction. PLAN/RECS: -Q1 neurochecks -Attempted shunt externalization, but very slow CSF egress, therefore will proceed to the OR for R frontal EVD and shunt system removal. -SBP <160 -NPO -Hold all AC/AP medications -SCDs Case will be discussed with Dr. Jimenez, neurosurgery attending. Future Appointments Date Time Provider Department Center 10/21/2023 10:00 AM Annalise Rivera APRN [facility] Pager: [phone] Richard Valles MD 09/24/2023 7:29 AM Clinical Documentation Improvement: Active Hospital Problems Diagnosis Shunt malfunction Resolved Hospital Problems No resolved problems to display. Associated attestation - Rhoda Jimenez MD - 10/05/2023 2:28 PM EDT I have seen and examined the patient, providing miramontes components as outlined below. I have reviewed the resident???s note; my evaluation of the patient is below: 52 y.o. gentleman with shunted hydrocephalus, well known to me from prior hospitalization with abdominal abscess and shunt externalization and re- implantation in the right chest. He is presenting with concern for shunt infection with fevers, headache and tenderness over the shunt valve. The shunt was tapped and GPR were seen on the gram stain. We will plan to admit him and externalize the shunt while awaiting final cultures. * Henry Elder APRN - 09/24/2023 3:28 AM EDT Images from the original note were not included. NEUROCRITICAL CARE HISTORY & PHYSICAL Date of Admission: 09/23/2023 6:13 PM HPI: Chapin Costa is a 52 y.o. 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 [place] [facility] [place]: Ever presents to [facility] after 3 days on generalized ALICEA with pain, edema, and erythema to his shunt site locate behind his right ear. Also mother and ever report recent fevers to 100.7 for which he has self administered Tylenol with good effect, chills, lethargy, and body aches which have historically corresponded with a VPS malfunction. This prompted Ever ot contact [place]GY at [facility] [place] advised him to be seen in the ED for evaluation. Original shunt was placed in 1973 with his most recent shunt revision being in June 2023(from 80 to 90 mm H20). A shunt series was ordered by NSGY which did not show a kink or discontinuity WBC's noted 10.8 but no bandemia and normal CRP, sed rate 47. Lactate 1.4 BC x 2 obtained Shunt tapped with delayed draining (20 minutes for 1.5 mL) CTH was without acute changes or ventricularmegaly ROS: Constitutional: denies weight changes, fever, malaise, and chills. Eyes: denies vision changes and diplopia. Ears, Nose, Throat: denies hearing changes, tinnitus, sinus congestion, sore throat, and changes invoice. Cardiovascular: denies chest pain and heart palpitations. Respiratory: denies shortness of breath and cough. Gastrointestinal: denies difficulty swallowing, nausea, vomiting, diarrhea, constipation, and abdominal pain. Genitourinary: denies dysuria and urinary incontinence. Musculoskeletal: denies back and neck pain. Integumentary: denies new or worsening rashes. Neurological: denies changes in speech, dizziness, weakness, paralysis, loss of sensation, paresthesias, tremors, seizure-like activity, syncope, and loss of balance, endorses headache which worsens with looking up Psychiatric: denies nervousness and depression. Endocrine: denies heat and cold intolerance. Hematologic: denies anemia and anticoagulation. Immunologic: denies immunosuppression. Past Medical History: Diagnosis Date Depression Hearing loss r ear Hydrocephalus associated with congenital aqueduct stenosis Hyperlipidemia Hypertension Memory disorder Seizures Syncope and collapse Vision abnormalities related to hydrocephalus Past Surgical History: Procedure Laterality Date CARPAL TUNNEL RELEASE Right CHOLECYSTECTOMY, LAPAROSCOPIC IR ALL DRAINAGE PROCEDURES 06/18/2023 IR All Drainage Procedures Bentley Arceo MD [facility] INTERVENTIONL RAD PRO ALVEOLOPLASTY W EXTRACTIONS, 4 OR MORE TEETH, PER QUADRANT N/A 10/18/2020 ALVEOPLASTY,IN CONJUNCTION WITH EXTRACTIONS,PER QUADRANT,ENT (WRVU 4.06) performed by Shan Rivero MD at [facility] OSC PRO EXTRACTION, ERUPTED TOOTH OR EXPOSED ROOT N/A 10/18/2020 EXTRACTION, ERUPTED TOOTH OR EXPOSED ROOT (WRVU 0.62) performed by Shan Rivero MD at [facility] OSC PRO IMPACT TOOTH REM BONY W/COMP N/A 10/18/2020 SURGICAL EXTRACTIONS, REMOVAL OF IMPACTED TOOTH, COMPLETELY BONY WITH UNUSUAL SURGICAL COMPLICATIONS (WRVU 2.91) performed by Shan Rivero MD at [facility] OSC PRO IMPACT TOOTH REMOV COMP BONY N/A 10/18/2020 SURGICAL EXTRACTIONS, REMOVAL OF IMPACTED TOOTH, COMPLETELY BONY (WRVU 1.93) performed by Shan Rivero MD at [facility] OSC PRO REMOVAL ERUPTED TOOTH WITH ELEVATION OF MUCOPERIOSTEAL FLAP Bilateral 10/18/2020 SURGICAL EXTRACTIONS REQUIRING ELEVATION OF MUCOPERIOSTEAL FLAP AND REMOVAL OF BONE OR SECTION OF TOOTH (WRVU 1.09) performed by Shan Rivero MD at [facility] OSC PRO REMOVAL, COMPLETE CSF SHUNT, W/O REPLACE Right 06/20/2023 @REMOVAL OF COMPLETE CSF SHUNT, W/O REPLACEMENT (WRVU 7.38) [facility]PL[facility]EMENT/REVISION, CSF SHUNT Right 06/09/2023 REVISION OR REPLACEMENT CSF SHUNT (WRVU 11.43) performed by Rhoda Jimenez MD at [facility] MAIN OR PRO REPLACEMENT/REVISION, CSF SHUNT Right 06/29/2023 REVISION OR REPLACEMENT CSF SHUNT (WRVU 11.43) performed by Rhoda Jimenez MD at [facility] CSI PRO RESECT SMALL INTEST, SINGL RESEC/ANAS N/A 07/03/2023 @BOWEL RESECTION, SMALL INTESTINE SINGLE ANASTOMOSIS (WRVU 20.82) performed by Frank Murray MD at [facility] MAIN OR PRO UNLISTED PROCEDURE NERVOUS SYSTEM Right 05/24/2022 EXPLORATION VENTRICULO-PERITONEAL SHUNT (WRVU 25.48) performed by Rhoda Jimenez MD at [facility] MAIN OR SHOULDER SURGERY ULNAR TUNNEL RELEASE Right VENTRICULOPERITONEAL SHUNT Multiple revisions - ~46 prior revisions Social History Tobacco Use Smoking status: Never Smokeless tobacco: Never Substance Use Topics Alcohol use: No (Not in a hospital admission) Vital Sign Ranges: Last value Range last 24 hrs Temperature Temp: 37 ??C (98.6 ??F) Temp: [37 ??C (98.6 ??F)] Heart Rate Heart Rate: 74 Heart Rate: [74] Blood Pressure BP: 132/82 BP: (117-132)/(82-83) Respiratory Rate Resp: 18 Resp: [18] SpO2 SpO2: 96 % SpO2: [96 %] Art BP BP (Arterial Line): -- Lines/Drains/Airways: PIV 09/23/239 20 gauge median cubital vein (antecubital fossa), left (Active) Incision 05/24/22 0939 occipital region (Active) Incision 06/09/23 1456 Right abdomen (Active) Incision 06/18/23 1533 Right lower quadrant non-laparascopic puncture (Active) Incision 06/20/23 1416 Right;upper abdomen (Active) Incision 06/29/23 1435 Right head (Active) Incision 06/29/23 1440 Right chest (Active) Incision 06/29/23 1450 Right chest (Active) Incision 07/03/23 1511 midline abdomen (Active) Labs: Recent Results (from the past 24 hour(s)) Basic Metabolic Panel (non-fasting) Result Value Ref Range Glucose Lvl 167 65 - 199 mg/dL BUN 14 10 - 20 mg/dL Creatinine 1.05 0.80 - 1.50 mg/dL Sodium 137 135 - 145 mmol/L Potassium 3.8 3.5 - 5.0 mmol/L Chloride 100 98 - 107 mmol/L CO2 22 22 - 31 mmol/L Anion Gap 15 5 - 15 mmol/L Calcium 9.9 8.5 - 10.5 mg/dL Estimated GFR 86 >=60 mL/min/1.73 m?? Sedimentation rate Result Value Ref Range Sed Rate 47 (H) 2 - 37 mm/hr CRP, acute inflammation Result Value Ref Range CRP 3.6 <=4.9 mg/L Hemogram Result Value Ref Range WBC 10.8 (H) 4.0 - 9.5 x10(3)/mcL RBC 5.90 (H) 4.58 - 5.54 x10(6)/mcL Hemoglobin 17.0 (H) 13.7 - 16.5 g/dL Hematocrit 49.4 (H) 40.5 - 48.5 % MCV 83.7 82.9 - 93.1 fL MCH 28.8 27.5 - 32.1 pg MCHC 34.4 32.0 - 35.7 g/dL Platelets 227 145 - 357 x10(3)/mcL RDWSD 39.8 36.0 - 45.0 fL RDWCV 13.0 11.4 - 13.8 % MPV 9.1 7.6 - 12.9 fL nRBC % Auto 0.0 % nRBC Abs Auto 0.000 0.000 - 0.000 x10(3)/mcL Differential, Automated Result Value Ref Range Neutrophils % 66.3 % Neutr Abs (ANC) 7.15 (H) 1.70 - 6.10 x10(3)/mcL Lymphocytes % 28.3 % Lymphocytes Abs 3.1 0.9 - 3.2 x10(3)/mcL Monocytes % 3.5 % Monocyte Abs 0.4 0.3 - 0.9 x10(3)/mcL Eosinophils % 1.0 % Eosinophils Abs 0.1 0.0 - 0.4 x10(3)/mcL Basophils % 0.7 % Basophils Abs 0.1 0.0 - 0.1 x10(3)/mcL Immature Gran % 0.20 % Ute Gran Abs 0.02 0.00 - 0.04 x10(3)/mcL Blue Tube HOLD Result Value Ref Range Blue Hold Sample in lab. Gold Tube HOLD Result Value Ref Range Gold Hold Sample in lab. Imaging: Results for orders placed or performed during the hospital encounter of 09/23/23 XR Shunt Series (Exam End: 09/23/2023 6:29 PM) Result Value WORKSTATION ID [id number] Impression Right ventriculopleural shunt without kink or discontinuity identified. Thank you for letting us participate in the care of this patient. If you are a health care provider and have any questions regarding this report, please contact the number below. For patients who have questions please contact the health managed care liaison that requested your imaging first. Electronically signed by: Ovidio Osborne MD, [facility] ([phone]), at 09/23/2023 7:[address] Head wo Contrast (Generic) (Exam End: 09/23/2023 8:01 PM) Result Value WORKSTATION ID [id number] Impression Unchanged caliber of the ventricles. Thank you for letting us participate in the care of this patient. If you are a health care provider and have any questions regarding this report, please contact the number below. For patients who have questions please contact the health managed care liaison that requested your imaging first. : Physical Exam: General: INAD. HEENT: Head various old surgical scars well healed. Nares patent. Neck: Full AROM. No nuchal rigidity. CV: Regular rate, regular rhythm, . Palpable distal pulses (radial, posterior tibial, dorsalis pedis). Lungs: CTA bilaterally, no rales, no wheezing. Abd: Soft, NT, ND. NABS throughout. Ext: No gross deformities noted. No clubbing, cyanosis, or edema. Skin: Warm and dry. No visible rashes. Neuro: Mental status: GCS 15, AOx4. Speech is clear/fluent/appropriate. Follows simple and complex commands. Patient is able to repeat the phrase 'no ifs, ands, or buts' without difficulty. Names objects such as a pen. CN: pain with looking up but can track to all quadrants, PERRL, VFF, no nystagmus. Smile is symmetric. Sensation to light touch is intact on the face. Hearing intact to voice. Tongue midline. Palate rises symmetric. Shoulder shrug intact bilaterally. Motor: Normal bulk and tone, no rigidity noted. No tremors noted. Strength is 5/5 throughout. No drift. Sensory: Intact to light touch throughout. No extinction on DSS testing. Psych: affect is appropriate. ASSESSMENT & PLAN: Chapin Costa is a 52 y.o. 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 with multiple shuntrevisions who presents to the NCCU for management 2/2 concern for VPS infection # Neuro- > Concern for VPS infection > PNES > Depression > Chronic ALICEA's - q1h neuro checks, VS - HOB > 30 deg - analgelsia: tylenol, oxycodone prn - atarax 25 mg HS - Zoloft 200 mg daily - Topomax 25 daily - NSGY following, plan pending # CV - > HLD > HTN - SBP goal < 160 mm Hg - hydralazine, labetalol PRN - metoporolol XL 25 mg daily - atorvastatin 40 mg daily # Pulm - - goal O2 sats > 92% - continue chest PT/pulm toileting - IS 10x q1h while awake # GI - > GERD - diet: NPO give - maintain bowel reg - PPI - Tums Q6 PRN # FEN/ - - continue IVF until full diet - daily BMP, Mg, PO4 # Heme - - daily CBC - SCDs only for DVT ppx, hold chemoppx for NSGY plan # Endo - > Hypothyroidism - Synthroid 25 mcg daily # ID - > GPR's in CSF culture - Vanco, CTX 2 g BID, Flagyl 500 TID - for temp > 38.4 C --> UA, CXR, blood cx, sputum cx - tylenol PRN T/L/D - PIV x 2 Code Status - Attempt Cardiopulmonary Resuscitation - Inpatient Dispo - NCCU documented in this encounter Procedure Notes * Mirian Murrieta PA - 10/02/2023 7:12 PM EDT EVD replacement see progress note 10/01 at 1402 * Deng Fuentes RN - 09/27/2023 5:20 PM EDT Page Sent Successfully Page Confirmation To Pager number: [phone] From Submitter: Deng Fuentes Urgency Level: FYI Callback Number: [phone] The following Message was sent: [] - Callback:[phone] Igor, drain output 8cc over 2hr, paging per order as under 10cc - Deng Fuentes The following status was returned from the room service server: Page for [phone] successfully sent to [phone] having status of Available. * Richard Valles MD - 09/24/2023 6:41 AM EDT Shunt Externalization Procedure Note: Attending: Rhoda Jimenez MD Resident: Richard Valles MD Indication: 52 y.o. male with history of R frontal ventriculo-pleural shunt placement presented with headache, fevers, and tenderness over the shunt valve, found to have shunt tap gram stain positivefor bacteria. Recommended to externalize the shunt at the clavicle. Benefits, risks, reviewed with patient who agreed to proceed. Informed consent was signed. Procedure Description: Patient was transferred from the ED to the ICU, on room air and hemodynamically stable. All appropriate monitoring devices were in place. A timeout was performed confirming patient identity, procedure, laterality. Antibiotics were not held for the procedure as the patient had already been started on triple abx. Patient positioned supine with head turned to the left. A 2 cm incision over the right medial clavicle immediately over the subcutaneous catheter was marked, prepped with chloraprep, and 6 cc of 1% lidocaine with 1: 200,000 epinephrine was administered for local anesthesia. The surgical site was then re-prepped with chloraprep and then draped in the usual sterile fashion. After confirmation of regional anesthesia, #15 blade used to sharply incise skin and then blunt dissection carried out untilthe catheter came into view. The catheter was then pulled out from the incision and divided sharply. The proximal catheter was very slowly draining clear appearing CSF. The distal catheter could not be pulled out and was left in place. The wound was then liberally irrigated and hemostasis confirmed. Wound was then closed with a 3-0 purse-string stitch in running fashion for the skin with the proximal catheter emanating from the incision itself. Sterile dressing applied. The proximal catheter was connected to the collection chamber and spontaneous flow was noted to be present but quite slow. This marked the end of the procedure patient tolerated well without complications. Richard Valles MD * Richard Valles MD - 09/23/2023 8:56 PM EDT [facility] NEUROSURGERY WIND TECHNICIAN SHUNT TAP NOTE Date: 09/24/23 Patient: Chapin Costa : [address] Jimenez to tap the patient's VPS for CSF gram stain and culture to looks for signs of infection. Discussed with Dr. Jimenez, who agreed it was reasonable to proceed. Pt seen and examined in the ED. Discussed risks and benefits of shunt tap with patient, including risk of introducing new infection which would require shunt revision/explantation in the future. All questions answered, patient wished to proceed. Informed consent obtained. No history of antiplatelets or anticoagulants. VPS located in right frontal region with valve behind the right ear. Small amount of hair shaved with clippers. Cleaned with chlorhexidine x3 and draped in usual sterile manner. Sterile gloves used with 23G butterfly needle. [place] identified. Clear appearing CSF aspirated after 1 attempt. A total of 2cc of CSF was collected and sent for CSF studies. Band-Aid placed over site of needle insertion. Patient tolerated procedure well. Plan: -F/u CSF studies Richard Valels MD 09/24/23 7:57 AM documented in this encounter ED Notes * Annita Dhaliwal MD - 09/23/2023 7:41 PM EDT Brief Attending Note I cared for the patient with the resident physician. Please see Dr. Monson's note, associated with the encounter, for more details. HPI: Chapin Costa is a 52 y.o. who presents to the ED with headache, fevers x 2 days to 100.7. Hehas tenderness over his shunt He is here with his mother who provides additional history. PMH congenial hydrocephalus. 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 Last revision June 2023, ED Course: VSS, currently afebrile Neuro exam non-focal. Tenderness and erythema over his shunt. See photo Labs - WBC elevated. Sed rate 47, H&H elevated, Recent Results (from the past 12 hour(s)) Basic Metabolic Panel (non-fasting) Result Value Glucose Lvl 167 BUN 14 Creatinine 1.05 Sodium 137 Potassium 3.8 Chloride 100 CO2 22 Anion Gap 15 Calcium 9.9 Estimated GFR 86 Sedimentation rate Result Value Sed Rate 47 (H) CRP, acute inflammation Result Value CRP 3.6 Hemogram Result Value WBC 10.8 (H) RBC 5.90 (H) Hemoglobin 17.0 (H) Hematocrit 49.4 (H) MCV 83.7 MCH 28.8 MCHC 34.4 Platelets 227 RDWSD 39.8 RDWCV 13.0 MPV 9.1 nRBC % Auto 0.0 nRBC Abs Auto 0.000 Differential, Automated Result Value Neutrophils % 66.3 Neutr Abs (ANC) 7.15 (H) Lymphocytes % 28.3 Lymphocytes Abs 3.1 Monocytes % 3.5 Monocyte Abs 0.4 Eosinophils % 1.0 Eosinophils Abs 0.1 Basophils % 0.7 Basophils Abs 0.1 Immature Gran % 0.20 Ute Gran Abs 0.02 Blue Tube HOLD Result Value Blue Hold Sample in lab. Gold Tube HOLD Result Value Gold Hold Sample in lab. Results for orders placed or performed during the hospital encounter of 09/23/23 XR Shunt Series (Exam End: 09/23/2023 6:29 PM) Result Value WORKSTATION ID [id number] Impression Right ventriculopleural shunt without kink or discontinuity identified. Thank you for letting us participate in the care of this patient. If you are a health care provider and have any questions regarding this report, please contact the number below. For patients who have questions please contact the health managed care liaison that requested your imaging first. Electronically signed by: Ovidio Osborne MD, [facility] ([phone]), at 09/23/2023 7:12 PM Neurosurgery consult IV fluids Assessment/plan: R/o shunt infection Neurosurgery consult pending at time of shift change. Care to oncoming team Annita Dhaliwal MD 09/23/23 2148 * Derek Monson MD - 09/23/2023 7:06 PM EDT ED Resident Note HPI: Chapin Costa is a 52 y.o. male with past medical history significant for congenital hydrocephalus with retinal WIND 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 placement in 1973, most recent shunt revision in June 2023, persistent headaches, seizures, prior shunt malfunctions who presents to the Emergency Department with headache, fevers x 2 days. History is obtained from the patient as well as the patient's mother. Patient's mother reports that the patient is had a fever as high as 100.7 at home, she has been giving him medication to help with the fever but she is also noted that he seems more slow than usual. He states thathe has tenderness over the area of his shunt as well. She believes it is more red than usual, he feels that is more firm than usual and has associated central neck pain as well. Patient's mother states that she discussed with the nurse triage line for neurosurgery and was told to present to the emergency department for evaluation. ROS as per HPI Vitals: ED Triage Vitals [09/23/23 1801] BP: 117/83 Heart Rate: 74 Resp: 18 Temp: 37 ??C (98.6 ??F) Temp src: Oral SpO2: 96 % O2 Device: n/a O2 Flow Rate (L/min): n/a Physical Exam Constitutional: General: He is not in acute distress. HENT: Head: Normocephalic and atraumatic. Mouth/Throat: Mouth: Mucous membranes are moist. Pharynx: Oropharynx is clear. Eyes: General: No scleral icterus. Conjunctiva/sclera: Conjunctivae normal. Cardiovascular: Rate and Rhythm: Normal rate and regular rhythm. Pulses: Normal pulses. Pulmonary: Effort: Pulmonary effort is normal. Breath sounds: Normal breath sounds. Abdominal: General: Abdomen is flat. Musculoskeletal: Cervical back: Normal range of motion. Tenderness present. No rigidity. Skin: General: Skin is warm and dry. Neurological: General: No focal deficit present. Mental Status: He is alert and oriented to person, place, and time. ED Course as of 09/23/232242Sep 23, [id number] WBC(!): 10.8 1903 CRP: 3.6 CT Head wo Contrast (Generic) Final Result Unchanged caliber of the ventricles. Thank you for letting us participate in the care of this patient. If you are a health care provider and have any questions regarding this report, please contact the number below. For patients who have questions please contact the health managed care liaison that requested your imaging first. Shunt Series Final Result Right ventriculopleural shunt without kink or discontinuity identified. Thank you for letting us participate in the care of this patient. If you are a health care provider and have any questions regarding this report, please contact the number below. For patients who have questions please contact the health managed care liaison that requested your imaging first. Electronically signed by: Ovidio Osborne MD, [facility] ([phone]), at 09/23/2023 7:12 PM Procedures Assessment and Plan: 52 y.o. male with past medical history significant for congenital hydrocephalus with retinal WIND 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 placement in 1973, most recent shunt revision in June 2023, persistent headaches, seizures, prior shunt malfunctions who presents to the Emergency Department with headache, fevers x 2 days. Patient had shunt series ordered from triage which is pending at this time. He has an elevated white blood cell count slightly as well as a normal CRP. Blood cultures were also ordered from triage. Obvious concern for shunt related infection, will discuss with neurosurgery. Neurosurgery plans to tap his shunt, will likely plan for admission as well. Patient signed out to oncoming emergency department team pending tap and admission. Derek Monson MD Resident [id number]/23/[id number] Associated attestation - Annita Dhaliwal MD - 09/24/2023 9:27 AM EDT ED ATTENDING ATTESTATION The patient was seen in conjunction with the resident physician. I have independently performed thekey portions of the history and physical exam. I have personally reviewed nursing notes, vital signs, and diagnostic studies including labs, imaging studies and EKGs. I have discussed the details of the case with the resident and agree with the assessment and plan as described in the resident's note, unless stated otherwise in my separate note. Did this case involve critical care? No * Primo Story APRN - 09/23/2023 6:01 PM EDT Images from the original note were not included. Brief Provider in triage note 52 y.o. 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 Patient does admit to systemic symptoms including fevers (Tmax 100.7 reducible with Tylenol), chills, and bodyaches. Patient contacted neurosurgery who advised him come to the emergency room for further evaluation and management. Primo Story APRN 09/23/23 [id number] documented in this encounter Miscellaneous Notes * Plan of Care - Mitchell Vizcarra RN - 10/09/2023 10:08 PM EDT Problem: Adult Inpatient Plan of Care Goal: Plan of Care Review Outcome: Ongoing (Interventions Implemented as Appropriate) Goal: Patient-Specific Goal (Individualized) Outcome: Ongoing (Interventions Implemented as Appropriate) Goal: Absence of Hospital-Acquired Illness or Injury Outcome: Ongoing (Interventions Implemented as Appropriate) Goal: Optimal Comfort and Wellbeing Outcome: Ongoing (Interventions Implemented as Appropriate) Goal: Readiness for Transition of Care Outcome: Ongoing (Interventions Implemented as Appropriate) Problem: Infection Goal: Absence of Infection Signs and Symptoms Outcome: Ongoing (Interventions Implemented as Appropriate) Problem: Pain Acute Goal: Acceptable Pain Control and Functional Ability Outcome: Ongoing (Interventions Implemented as Appropriate) Problem: Fall Injury Risk Goal: Absence of Fall and Fall-Related Injury Outcome: Ongoing (Interventions Implemented as Appropriate) * Brief Op Note - Laila Ricci MD - 10/09/2023 3:27 PM EDT Brief Operative Note Patient Name: Chapin Costa : [id number] MR#: [id number] Case Date: 09/24/2023 Surgeon: Surgeons and Role: * Rhoda Jimenez MD - Primary * Mo Marcus MD - Resident - Assisting Preoperative diagnosis: removal of right ventriculopleural shunt Postoperative diagnosis: removal of right ventriculopleural shunt Procedure(s) (LRB): @VENTRICULO-PERITONEAL,-PLEURAL,-OTHER SHUNT (WRVU 14.05) (Left) MODIFIER,STEALTH 2,KINEVO (N/A) STEREOTACTIC COMPUTER-ASSTD NAVIGATIONAL CRANIAL INTRADURAL (WRVU 3.75) (N/A) Anesthesia: General Findings: Removal of R frontal EVD; Left occipital ventriculopleural shunt placement, Certas valve at 1, closure with nylon at head and absorbable at chest Complications: none Estimated Blood Loss: 20 mL* No values recorded between 10/09/2023 1:42 PM and 10/09/2023 3:20 PM * Specimens removed during surgery: None Fluids: Intraprocedure Crystalloid Total None PRBCs: none (See Anesthesia Record/Report for Other Blood Products) Urine Output: (no urine output recorded) Drains: none Disposition: awakened from anesthesia, extubated and taken to the recovery room in a stable condition, having suffered no apparent untoward event. Condition: doing well without problems (Please see the Surgical Encounter Summary for any Implant and Specimen details pertinent to this patient.) Surgical Infection Prevention Bundle Used? N/A * Op Note - Rhoda Jimenez MD - 10/09/2023 1:42 PM EDT [facility] [place] Patient Name: Chapin Costa : [id number] MR#: [id number] Case Date: 10/09/2023 Surgeon: Surgeons and Role: * Rhoda Jimenez MD - Primary * Asaf Caputo MD - Resident - Assisting * Laila Ricci MD Preoperative diagnosis: Hydrocephalus Postoperative diagnosis: Hydrocephalus Procedure(s) (LRB): @VENTRICULO-PERITONEAL,-PLEURAL,-OTHER SHUNT (WRVU 14.05) (Left) MODIFIER,STEALTH 2,KINEVO (N/A) STEREOTACTIC COMPUTER-ASSTD NAVIGATIONAL CRANIAL INTRADURAL (WRVU 3.75) (N/A) Findings: EVD removed and left occipital V-pleural shunt (Certas level 1) placed without issue Anesthesia: General Estimated Blood Loss: 20 mL Specimens removed during surgery: None Drains: None Surgical Closure: Primary Closure - skin incision is completely closed without any wires, serena, drains or other devices Disposition: awakened from anesthesia, extubated and taken to the recovery room in a stable condition, having suffered no apparent untoward event. Condition: doing well without problems (Please see the Surgical Encounter Summary for any Implant and Specimen details pertinent to this patient.) Chapin Costa is a 52-year-old gentleman with a history of shunted hydrocephalus who was admitted for suspected shunt infection. His shunt was externalized, and he was treated with antibiotics as directed by infectious disease. He is now deemed ready for reimplantation of the shunt. After disc ussion of risks, benefits, and alternatives, he was consented for placement of a left occipital ventriculopleural shunt. The patient was seen and interviewed in his hospital bed. Updated history and physical was obtained. Consent was obtained. Operative site was the left side of the head and chest, this is marked with green pechanga. The patient was taken back to the operating by anesthesia. General endotracheal anesthesia was obtained without difficulty. The patient was positioned supine, his head was turned slightly toward the right and a cerebellar, such as the left occiput was exposed. The head was now registered to the neuronavigation system using Axiom. Landmarks were used to verify orientation, and accuracy. We planned a trajectory from the left parietal occipital junction to the center of the left frontal horn. The left occipital lobe was now shaved over the entry site. The right frontal EVD was pulled sterilely, and the drain exit site was sutured with a single 4-0 Monocryl in [id number] fashion. The entire left head and chest were now prepped and draped in the usual sterile fashion. A timeout was undertaken. 2 g cefazolin were administered intravenously. We anesthetized the left cranial incision with quarter percent Marcaine with epinephrine. The skin was opened sharply with a 10 blade down to the paracranium. Bovie cautery was used to open the paracranium and a 3-0 Vicryl suture was used to retract the scalp. The M8 bit on the Midas Joni drill was now used to fashion a bur hole directly underneath our planned entry site. Hemostasis is obtained with the bipolar and bone wax. We nowassembled the shunt. This consisted of a 9.5 cm proximal areas catheter. The proximal catheter was set aside. The rest of the shunt was now somewhat. This consisted of a small rectum reservoir, connected to a Certas valve set to 1, connected to distal gertrudis catheter. All connections were secured with 2-0 silk suture. We now anesthetized the planned pleural incision with quarter percent Marcaine epinephrine. This was opened sharply with a 10 blade on the level of subcutaneous fat. Using a tunneler, we made a subcutaneous tunnel from the occipital incision down to the pleural entry site. A 2-0 nylon suture was pulled from the full site up to the hand, this is attached to the end of the distal catheter, and the distal catheter was pulled down through the chest and coiled into a wet Ray-Ratna. The Axiom probe was now brought into field and accuracy was checked. The dura was now opened sharply with 11 blade and bipolar cautery. The proximal catheter was downloaded onto the Axiom probe, it waspassed under image guidance to target. We could verify brisk flow of CSF. The proximal catheter wasnow connected to the Rickham reservoir and secured with a 2-0 silk tie. We confirmed that all shuntcomponents are sitting flush onto the skull, with no kinks. We also confirmed intact distal flow. We then turned our attention to accessing the pleural cavity. A 5 stent was used to divide the muscles of the pectoralis and till we identified the top of the second rib. We then proceeded to cauterizethe attachment of the intercostal muscles on the superior aspect of the rib, and then divided the remaining fibers until we could see the pleura, then the lung inflating and deflating. The distal catheter was now guided into the pleural cavity under direct visualization until the catheter was entirely under the skin. At this point, we are satisfied with our position of the stent and proceeded to close. Both the chest and the head were copiously irrigated with LR and close in their fashion. Interrupted 3-0 Vicryl used for the galea and the deep dermal layer, and the skin was closed with a 4-0 nylon in running fashion. At the end of the case, all counts were correct. I was present for the entire procedure. Surgical Infection Prevention Bundle Used? N/A Attestation: Case Date: 10/09/2023 I was present and I participated during the entire procedure (does not need to include opening and closing). Rhoda Jimenez MD 10/19/2023 * Plan of Care - Mitchell Vizcarra RN - 10/08/2023 8:00 PM EDT Problem: Adult Inpatient Plan of Care Goal: Plan of Care Review Outcome: Ongoing (Interventions Implemented as Appropriate) Goal: Patient-Specific Goal (Individualized) Outcome: Ongoing (Interventions Implemented as Appropriate) Goal: Absence of Hospital-Acquired Illness or Injury Outcome: Ongoing (Interventions Implemented as Appropriate) Goal: Optimal Comfort and Wellbeing Outcome: Ongoing (Interventions Implemented as Appropriate) Goal: Readiness for Transition of Care Outcome: Ongoing (Interventions Implemented as Appropriate) Problem: Infection Goal: Absence of Infection Signs and Symptoms Outcome: Ongoing (Interventions Implemented as Appropriate) Problem: Pain Acute Goal: Acceptable Pain Control and Functional Ability Outcome: Ongoing (Interventions Implemented as Appropriate) Problem: Fall Injury Risk Goal: Absence of Fall and Fall-Related Injury Outcome: Ongoing (Interventions Implemented as Appropriate) * Plan of Care - Nelly German RN - 10/08/2023 6:18 AM EDT Summary: NAEO NSR, hemodynamically stable. On RA, not in any respiratory distress. Neuro status unchanged, a/o x4, up and about. EVD drain in progress clear yellow output, open at 5cmH2O, 0 to tragus, drain q 2hrs. Nil per [place]rem at [place]. For VPS revision today as scheduled. Lytes replacement given per protocol. CT scan of head done. Plan: CPOC SFP EVD protocol Problem: Adult Inpatient Plan of Care Goal: Plan of Care Review Outcome: Ongoing (Interventions Implemented as Appropriate) Goal: Patient-Specific Goal (Individualized) Outcome: Ongoing (Interventions Implemented as Appropriate) Goal: Absence of Hospital-Acquired Illness or Injury Outcome: Ongoing (Interventions Implemented as Appropriate) Goal: Optimal Comfort and Wellbeing Outcome: Ongoing (Interventions Implemented as Appropriate) Goal: Readiness for Transition of Care Outcome: Ongoing (Interventions Implemented as Appropriate) Problem: Infection Goal: Absence of Infection Signs and Symptoms Outcome: Ongoing (Interventions Implemented as Appropriate) Problem: Pain Acute Goal: Acceptable Pain Control and Functional Ability Outcome: Ongoing (Interventions Implemented as Appropriate) Problem: Fall Injury Risk Goal: Absence of Fall and Fall-Related Injury Outcome: Ongoing (Interventions Implemented as Appropriate) * Plan of Care - Josselyn Diaz RN - 10/07/2023 2:00 PM EDT Problem: Adult Inpatient Plan of Care Goal: Plan of Care Review Outcome: Ongoing (Interventions Implemented as Appropriate) Goal: Patient-Specific Goal (Individualized) Outcome: Ongoing (Interventions Implemented as Appropriate) Goal: Absence of Hospital-Acquired Illness or Injury Outcome: Ongoing (Interventions Implemented as Appropriate) Goal: Optimal Comfort and Wellbeing Outcome: Ongoing (Interventions Implemented as Appropriate) Goal: Readiness for Transition of Care Outcome: Ongoing (Interventions Implemented as Appropriate) Problem: Infection Goal: Absence of Infection Signs and Symptoms Outcome: Ongoing (Interventions Implemented as Appropriate) Problem: Pain Acute Goal: Acceptable Pain Control and Functional Ability Outcome: Ongoing (Interventions Implemented as Appropriate) Problem: Fall Injury Risk Goal: Absence of Fall and Fall-Related Injury Outcome: Ongoing (Interventions Implemented as Appropriate) * Plan of Care - Nneka Sifuentes RN - 10/07/2023 4:58 AM EDT Problem: Adult Inpatient Plan of Care Goal: Plan of Care Review Outcome: Ongoing (Interventions Implemented as Appropriate) Goal: Patient-Specific Goal (Individualized) Outcome: Ongoing (Interventions Implemented as Appropriate) Goal: Absence of Hospital-Acquired Illness or Injury Outcome: Ongoing (Interventions Implemented as Appropriate) Goal: Optimal Comfort and Wellbeing Outcome: Ongoing (Interventions Implemented as Appropriate) Goal: Readiness for Transition of Care Outcome: Ongoing (Interventions Implemented as Appropriate) Problem: Infection Goal: Absence of Infection Signs and Symptoms Outcome: Ongoing (Interventions Implemented as Appropriate) Problem: Pain Acute Goal: Acceptable Pain Control and Functional Ability Outcome: Ongoing (Interventions Implemented as Appropriate) Problem: Fall Injury Risk Goal: Absence of Fall and Fall-Related Injury Outcome: Ongoing (Interventions Implemented as Appropriate) Pt rested well, neuro assessments intact. VSS. * Consult Note - Dina Mueller RN - 10/06/2023 11:03 AM EDTSummary: VAS Rounding During VAS Purposeful Rounding, an assessment of your patient's venous access was performed fby theVascular Access Service. The following tasks were performed if needed and communicated to the bedside RN Choose all that apply: [] PIV(s) checked for patency if daily need for flush needs to be performed [] CVAD was checked for patency if daily flush needs to be performed [] IV tubing clamped or capped if needed [] Visual inspection of your patient's central line dressing integrity [] Review of indications for vascular access [] A photo was taken of your patient's central line [x] Visual inspection of your patient's IV dressing integrity [] Other While rounding an intervention was needed and communicated to the bedside RN Choose all that apply: [] Nonocclusive IV dressing addressed [] Nonocclusive CVAD dressing (please identify type of line) [] Infusion site leaking [] IV not patent and removed [] IV not indicated [] IV placed [] IV restarted [] Implanted Port, PICC or ML dressing changed if needed (either PRN or weekly) [] Other * Plan of Care - Nneka Sifuentes RN - 10/06/2023 2:54 AM EDT Problem: Adult Inpatient Plan of Care Goal: Plan of Care Review Outcome: Ongoing (Interventions Implemented as Appropriate) Goal: Patient-Specific Goal (Individualized) Outcome: Ongoing (Interventions Implemented as Appropriate) Goal: Absence of Hospital-Acquired Illness or Injury Outcome: Ongoing (Interventions Implemented as Appropriate) Goal: Optimal Comfort and Wellbeing Outcome: Ongoing (Interventions Implemented as Appropriate) Goal: Readiness for Transition of Care Outcome: Ongoing (Interventions Implemented as Appropriate) Problem: Infection Goal: Absence of Infection Signs and Symptoms Outcome: Ongoing (Interventions Implemented as Appropriate) Problem: Pain Acute Goal: Acceptable Pain Control and Functional Ability Outcome: Ongoing (Interventions Implemented as Appropriate) Problem: Fall Injury Risk Goal: Absence of Fall and Fall-Related Injury Outcome: Ongoing (Interventions Implemented as Appropriate) Pt rested well this shift, Neuro status at baseline and intact. EVD managed q2 hours and OP documented q2. No acute changes VSS. * Care Management - Sue Blake RN - 10/05/2023 12:00 PM EDT OFFICE OF CARE MANAGEMENT PROGRESS NOTE LOS: Hospital Day 14 days Chart reviewed, care reviewed with primary team and at interdisciplinary rounds. Patient continues to meet inpatient level of care related to: Shunt Malfunction, evd in place cannot replace shunt until cleared by ID. Decision Maker: Guardian Guardianship paperwork on file: Yes Decision Maker Name: Mother- Tracy Fregoso Decision Maker Contact Information: Functional status prior to admission: Independent Home Environment: Others in the home: pet(s). Current Living Arrangements: home/apartment/condo. Accessibility Concerns: no concerns. Current Functional Ability: Assistive Person DME used at home: none DME Needed at Discharge: No Patient is insured through: Primary Insurance: MEDICARE Payor: MEDICARE / Plan: MEDICARE PART A & B / Product Type: *No Product type* / Secondary Insurance: MEDICAID [place] Last Physical Therapy Recommendation: with Last Occupational Therapy Recommendation: with Plan for discharge is: Pending Hospital Course and PT/OT Recommendations Outpatient Agency/Support Group Needs: None Agency Referrals: Not Applicable Transportation: family or friend will provide Barriers to discharge: Denies needs/concerns at this time Plan going forward: Met with mother Tracy and Ever at bedside. They acknowledge LOS pending need for abx and shunt replacement. EVD remains in place keeping in the NSCU while on abx. Care Managementwill continue to follow and assist with discharge planning and coordination of care as indicated. Anticipated Date of Discharge: 10/08/2023 * Plan of Care - Nneka Sifuentes RN - 10/05/2023 5:26 AM EDT Problem: Adult Inpatient Plan of Care Goal: Plan of Care Review Outcome: Ongoing (Interventions Implemented as Appropriate) Goal: Patient-Specific Goal (Individualized) Outcome: Ongoing (Interventions Implemented as Appropriate) Goal: Absence of Hospital-Acquired Illness or Injury Outcome: Ongoing (Interventions Implemented as Appropriate) Goal: Optimal Comfort and Wellbeing Outcome: Ongoing (Interventions Implemented as Appropriate) Goal: Readiness for Transition of Care Outcome: Ongoing (Interventions Implemented as Appropriate) Problem: Infection Goal: Absence of Infection Signs and Symptoms Outcome: Ongoing (Interventions Implemented as Appropriate) Problem: Pain Acute Goal: Acceptable Pain Control and Functional Ability Outcome: Ongoing (Interventions Implemented as Appropriate) Problem: Fall Injury Risk Goal: Absence of Fall and Fall-Related Injury Outcome: Ongoing (Interventions Implemented as Appropriate) Pt rested well this shift, neuro status intact, EVD maintained aligned with tragus at 0cm. EVD op clear. No acute changes, VSS. * Plan of Care - Mitchell Vizcarra RN - 10/03/2023 8:00 PM EDT Problem: Adult Inpatient Plan of Care Goal: Plan of Care Review Outcome: Ongoing (Interventions Implemented as Appropriate) Goal: Patient-Specific Goal (Individualized) Outcome: Ongoing (Interventions Implemented as Appropriate) Goal: Absence of Hospital-Acquired Illness or Injury Outcome: Ongoing (Interventions Implemented as Appropriate) Goal: Optimal Comfort and Wellbeing Outcome: Ongoing (Interventions Implemented as Appropriate) Goal: Readiness for Transition of Care Outcome: Ongoing (Interventions Implemented as Appropriate) Problem: Infection Goal: Absence of Infection Signs and Symptoms Outcome: Ongoing (Interventions Implemented as Appropriate) Problem: Pain Acute Goal: Acceptable Pain Control and Functional Ability Outcome: Ongoing (Interventions Implemented as Appropriate) Problem: Fall Injury Risk Goal: Absence of Fall and Fall-Related Injury Outcome: Ongoing (Interventions Implemented as Appropriate) * Plan of Care - Daniela Murguia RN - 10/03/2023 6:15 PM EDTSummary: Nursing progress note OUTCOME EVALUATION NOTE: OUTCOME SUMMARY: -pt VSS, neuro intact, no acute changes, 5/5 strengths, right eye dysconjugate (baseline) -EVD intact, patent, and draining clear fluid, open at 0 cm H2O, leveled at tragus of ear, clamped for meals and movement (no longer than 15 minutes). -pt BP slighting increasing towards end of shift, BP parameter <160, highest was 143/96 (111), no medications given per parameters. -pt walked 3 times today 350 each, tolerated well -pt has not had a BM since the 09/30/23, pt said this is normal for him, active bowel sounds, bowel meds offered but refused. PLAN MOVING FORWARD: -VS q2h -NC q2h -I/O q2h -monitoring for infection -vancomycin troph ordered 10/05/23 at 0530 am -CT at 10/04/23 at 0530 am -SBP <160 -encourage oral intake INDIVIDUALIZED FALL PREVENTION INTERVENTIONS: Patient-specific fall risk factors per assessment: [current deficits]: EVD in place Assistance [level of assistance required for transfers and ambulation]: stand by Supervision [direct monitoring required during toileting and ADLs]: stand by Surveillance [continuous indirect monitoring]: Tele, SpO2 CARE PLAN GOAL OUTCOME EVALUATION: Problem: Adult Inpatient Plan of Care Goal: Plan of Care Review Outcome: Ongoing (Interventions Implemented as Appropriate) Goal: Patient-Specific Goal (Individualized) Outcome: Ongoing (Interventions Implemented as Appropriate) Goal: Absence of Hospital-Acquired Illness or Injury Outcome: Ongoing (Interventions Implemented as Appropriate) Goal: Optimal Comfort and Wellbeing Outcome: Ongoing (Interventions Implemented as Appropriate) Goal: Readiness for Transition of Care Outcome: Ongoing (Interventions Implemented as Appropriate) Problem: Infection Goal: Absence of Infection Signs and Symptoms Outcome: Ongoing (Interventions Implemented as Appropriate) Problem: Pain Acute Goal: Acceptable Pain Control and Functional Ability Outcome: Ongoing (Interventions Implemented as Appropriate) Problem: Fall Injury Risk Goal: Absence of Fall and Fall-Related Injury Outcome: Ongoing (Interventions Implemented as Appropriate) * Plan of Care - Chan Patricia RN - 10/03/2023 5:20 AM EDT OUTCOME EVALUATION NOTE: OUTCOME SUMMARY: No acute events overnight EVD in place dressing intact, staple and tubing coil visible EVD now draining clear fluid PLAN MOVING FORWARD: Cont Q2 vs and nc EVD as per order CPG GOAL OUTCOME EVALUATION: Problem: Adult Inpatient Plan of Care Goal: Plan of Care Review Outcome: Ongoing (Interventions Implemented as Appropriate) Goal: Patient-Specific Goal (Individualized) Outcome: Ongoing (Interventions Implemented as Appropriate) Goal: Absence of Hospital-Acquired Illness or Injury Outcome: Ongoing (Interventions Implemented as Appropriate) Goal: Optimal Comfort and Wellbeing Outcome: Ongoing (Interventions Implemented as Appropriate) Goal: Readiness for Transition of Care Outcome: Ongoing (Interventions Implemented as Appropriate) Problem: Infection Goal: Absence of Infection Signs and Symptoms Outcome: Ongoing (Interventions Implemented as Appropriate) Problem: Pain Acute Goal: Acceptable Pain Control and Functional Ability Outcome: Ongoing (Interventions Implemented as Appropriate) Problem: Fall Injury Risk Goal: Absence of Fall and Fall-Related Injury Outcome: Ongoing (Interventions Implemented as Appropriate) * Plan of Care - Daniela Murguia RN - 10/02/2023 5:22 PM EDT OUTCOME EVALUATION NOTE: OUTCOME SUMMARY: -pt neuro remains the same, pt seems more alert and active today, A/O x4, 5/5 strengths -Upon morning assessment, the pt's EVD dressing was not intact, and sutures were not intact. NSGY team paged and aware. PA came to resuture and reinforce dressing to find the drain was about an inch withdrawn from original position. CT to check placement and position of EVD post-reinforcement, found that the EVD was not in correct place. Team came down to put in a new EVD. Pt given Oxy 5mg and scheduled tylenol prior to new EVD placement. New EVD patent, CT scan confirmed correct placement, draining with same orders as prior, 0 cm H2O open at tragus, clamp to move, eat, etc; do not clamp longer than 15 minutes. Currently draining pink fluid. -pt comfortable, afebrile, VSS, pain minimal, medication offered but refused. -no other acute events. PLAN MOVING FORWARD: -VS q2h -NC q2h -EVD drain q2h, level at tragus, open at 0cm of H2O. INDIVIDUALIZED FALL PREVENTION INTERVENTIONS: Patient-specific fall risk factors per assessment: [current deficits]: EVD, infection, wires Assistance [level of assistance required for transfers and ambulation]: stand by Supervision [direct monitoring required during toileting and ADLs]: stand by Surveillance [continuous indirect monitoring]: Tele, SpO2 CARE PLAN GOAL OUTCOME EVALUATION: Problem: Adult Inpatient Plan of Care Goal: Plan of Care Review Outcome: Ongoing (Interventions Implemented as Appropriate) Goal: Patient-Specific Goal (Individualized) Outcome: Ongoing (Interventions Implemented as Appropriate) Goal: Absence of Hospital-Acquired Illness or Injury Outcome: Ongoing (Interventions Implemented as Appropriate) Goal: Optimal Comfort and Wellbeing Outcome: Ongoing (Interventions Implemented as Appropriate) Goal: Readiness for Transition of Care Outcome: Ongoing (Interventions Implemented as Appropriate) Problem: Infection Goal: Absence of Infection Signs and Symptoms Outcome: Ongoing (Interventions Implemented as Appropriate) Problem: Pain Acute Goal: Acceptable Pain Control and Functional Ability Outcome: Ongoing (Interventions Implemented as Appropriate) Problem: Fall Injury Risk Goal: Absence of Fall and Fall-Related Injury Outcome: Ongoing (Interventions Implemented as Appropriate) * Plan of Care - Chan Patricia RN - 10/02/2023 5:46 AM EDT OUTCOME EVALUATION NOTE: OUTCOME SUMMARY: Pt. Remained without any neuro changes overnight No EVD issues PLAN MOVING FORWARD: Cont. To monitor vs and nc as ordered EVD drain as per orders CPG GOAL OUTCOME EVALUATION: Problem: Adult Inpatient Plan of Care Goal: Plan of Care Review Outcome: Ongoing (Interventions Implemented as Appropriate) Goal: Patient-Specific Goal (Individualized) Outcome: Ongoing (Interventions Implemented as Appropriate) Goal: Absence of Hospital-Acquired Illness or Injury Outcome: Ongoing (Interventions Implemented as Appropriate) Goal: Optimal Comfort and Wellbeing Outcome: Ongoing (Interventions Implemented as Appropriate) Goal: Readiness for Transition of Care Outcome: Ongoing (Interventions Implemented as Appropriate) Problem: Infection Goal: Absence of Infection Signs and Symptoms Outcome: Ongoing (Interventions Implemented as Appropriate) Problem: Pain Acute Goal: Acceptable Pain Control and Functional Ability Outcome: Ongoing (Interventions Implemented as Appropriate) * Plan of Care - Venita Piña RN - 09/30/2023 3:19 PM EDT Problem: Adult Inpatient Plan of Care Goal: Plan of Care Review Outcome: Ongoing (Interventions Implemented as Appropriate) Goal: Patient-Specific Goal (Individualized) Outcome: Ongoing (Interventions Implemented as Appropriate) Goal: Absence of Hospital-Acquired Illness or Injury Outcome: Ongoing (Interventions Implemented as Appropriate) Goal: Optimal Comfort and Wellbeing Outcome: Ongoing (Interventions Implemented as Appropriate) Goal: Readiness for Transition of Care Outcome: Ongoing (Interventions Implemented as Appropriate) Problem: Infection Goal: Absence of Infection Signs and Symptoms Outcome: Ongoing (Interventions Implemented as Appropriate) Problem: Pain Acute Goal: Acceptable Pain Control and Functional Ability Outcome: Ongoing (Interventions Implemented as Appropriate) * Plan of Care - Daniela Murguia RN - 09/29/2023 7:32 PM EDT OUTCOME EVALUATION NOTE: OUTCOME SUMMARY: -pt received bath, OOB x3 to walk, EVD drain minimal output, team aware. -no neuro deficits, A/O x4 -pt H/A the same , received scheduled tylenol and one 5 mg of oxy in evening, minimal relief. PLAN MOVING FORWARD: -EVD open at tragus, drain q2h, set at 15 cm H2O -NC q4 -VS q2 I/O q2 INDIVIDUALIZED FALL PREVENTION INTERVENTIONS: Patient-specific fall risk factors per assessment: [current deficits]: EVD Assistance [level of assistance required for transfers and ambulation]: stand by Supervision [direct monitoring required during toileting and ADLs]: stand by Surveillance [continuous indirect monitoring]: Tele, SpO2 CARE PLAN GOAL OUTCOME EVALUATION: Problem: Adult Inpatient Plan of Care Goal: Plan of Care Review Outcome: Ongoing (Interventions Implemented as Appropriate) Goal: Patient-Specific Goal (Individualized) Outcome: Ongoing (Interventions Implemented as Appropriate) Goal: Absence of Hospital-Acquired Illness or Injury Outcome: Ongoing (Interventions Implemented as Appropriate) Goal: Optimal Comfort and Wellbeing Outcome: Ongoing (Interventions Implemented as Appropriate) Goal: Readiness for Transition of Care Outcome: Ongoing (Interventions Implemented as Appropriate) Problem: Infection Goal: Absence of Infection Signs and Symptoms Outcome: Ongoing (Interventions Implemented as Appropriate) Problem: Pain Acute Goal: Acceptable Pain Control and Functional Ability Outcome: Ongoing (Interventions Implemented as Appropriate) * Consult Note - Robin Sood [facility] - 09/29/2023 6:35 AM EDT [facility] Pharmacokinetics Note Drug: Vancomycin Pharmacokinetic target: Ctrough 15-20 mg/L Current regimen: 1250 mg IV every 12 hours Recent measured serum creatinine values: 09/29/2023 01:45 1.07 mg/dL 09/27/2023 03:09 1.07 mg/dL 09/26/2023 03:30 1.15 mg/dL Assessment: Analysis of the most recent level(s) using [employer] gives the following patient-specific pharmacokinetic parameters: CL: 4.31 L/hr V: 66.2 L T1/2: 11.5 hours At this time we recommend a regimen of 1250 mg IV every 12 hours, which is predicted to result in asteady-state trough of 17.9 mg/L and AUC24 of 579 mg/L.hr. Recommendations: - Vancomycin 1250 mg IV every 12 hours - Obtain Vancomycin level in 3-5 days - Continue to monitor serum creatinine Robin Sood * Plan of Care - Peter Wood RN - 09/29/2023 5:21 AM EDT OUTCOME EVALUATION NOTE: OUTCOME SUMMARY: Patient remains afebrile all night. See VS in flowsheet for details. EVD output as recorded. No neuro changes noted. Patient slept between care. No new complaint. PLAN MOVING FORWARD: Continue to monitor for any reaction during vancomycin administration with benadryl given as pre-med. Vancomycin random level was 21.2. per pharmacist, level should be around 18 at scheduled time (0500 this AM) and ok to give dose as scheduled. Patient is to report any side effects as educated to primary RN if any occurs during abx infusion. Patient states understanding. INDIVIDUALIZED FALL PREVENTION INTERVENTIONS: Patient-specific fall risk factors per assessment: [current deficits]: Assistance [level of assistance required for transfers and ambulation]: Supervision [direct monitoring required during toileting and ADLs]: needs primary RN to assist withbathroom d/t continuous open EVD therapy. Bed alarm on all times, HOB and bed's height locked for safety. Surveillance [continuous indirect monitoring]: WBC appears to be trending upwards this AM. Was 10.74 on 09/28/23 but this AM WBC is 11.89. Patient-specific fall prevention interventions for sensory deficits provided, if applicable: [X] No CARE PLAN GOAL OUTCOME EVALUATION: Problem: Adult Inpatient Plan of Care Goal: Plan of Care Review 09/29/2023520 by Peter Wood RN Outcome: Ongoing (Interventions Implemented as Appropriate) 09/29/2023520 by Peter Wood RN Outcome: Ongoing (Interventions Implemented as Appropriate) Goal: Patient-Specific Goal (Individualized) 09/29/2023520 by Peter Wood RN Outcome: Ongoing (Interventions Implemented as Appropriate) 09/29/2023520 by Peter Wood RN Outcome: Ongoing (Interventions Implemented as Appropriate) Goal: Absence of Hospital-Acquired Illness or Injury 09/29/2023520 by Peter Wood RN Outcome: Ongoing (Interventions Implemented as Appropriate) 09/29/2023520 by Peter Wood RN Outcome: Ongoing (Interventions Implemented as Appropriate) Goal: Optimal Comfort and Wellbeing 09/29/2023520 by Peter Wood RN Outcome: Ongoing (Interventions Implemented as Appropriate) 09/29/2023520 by Peter Wood RN Outcome: Ongoing (Interventions Implemented as Appropriate) Goal: Readiness for Transition of Care 09/29/2023520 by Peter Wood RN Outcome: Ongoing (Interventions Implemented as Appropriate) 09/29/2023520 by Peter Wood RN Outcome: Ongoing (Interventions Implemented as Appropriate) Problem: Infection Goal: Absence of Infection Signs and Symptoms Outcome: Ongoing (Interventions Implemented as Appropriate) Problem: Pain Acute Goal: Acceptable Pain Control and Functional Ability Outcome: Ongoing (Interventions Implemented as Appropriate) * Plan of Care - Deng Fuentes RN - 09/28/2023 7:11 PM EDT Problem: Adult Inpatient Plan of Care Goal: Plan of Care Review Outcome: Ongoing (Interventions Implemented as Appropriate) Goal: Patient-Specific Goal (Individualized) Outcome: Ongoing (Interventions Implemented as Appropriate) Goal: Absence of Hospital-Acquired Illness or Injury Outcome: Ongoing (Interventions Implemented as Appropriate) Goal: Optimal Comfort and Wellbeing Outcome: Ongoing (Interventions Implemented as Appropriate) Goal: Readiness for Transition of Care Outcome: Ongoing (Interventions Implemented as Appropriate) * Consult Note - Ailyn Garsia RN - 09/28/2023 10:57 AM EDTSummary: Rounding During VAS Purposeful Rounding, an assessment of your patient's venous access was performed fby theVascular Access Service. The following tasks were performed if needed and communicated to the bedside RN Choose all that apply: [] PIV(s) checked for patency if daily need for flush needs to be performed [] CVAD was checked for patency if daily flush needs to be performed [] IV tubing clamped or capped if needed [] Visual inspection of your patient's central line dressing integrity [x] Review of indications for vascular access [] A photo was taken of your patient's central line [x] Visual inspection of your patient's IV dressing integrity [] Other While rounding an intervention was needed and communicated to the bedside RN Choose all that apply: [] Nonocclusive IV dressing addressed [] Nonocclusive CVAD dressing (please identify type of line) [] Infusion site leaking [] IV not patent and removed [] IV not indicated [] IV placed [] IV restarted [] Implanted Port, PICC or ML dressing changed if needed (either PRN or weekly) [] Other * Plan of Care - Misbah Enciso RN - 09/27/2023 8:23 PM EDT Problem: Adult Inpatient Plan of Care Goal: Plan of Care Review Outcome: Ongoing (Interventions Implemented as Appropriate) Goal: Patient-Specific Goal (Individualized) Outcome: Ongoing (Interventions Implemented as Appropriate) Goal: Absence of Hospital-Acquired Illness or Injury Outcome: Ongoing (Interventions Implemented as Appropriate) Goal: Optimal Comfort and Wellbeing Outcome: Ongoing (Interventions Implemented as Appropriate) Goal: Readiness for Transition of Care Outcome: Ongoing (Interventions Implemented as Appropriate) * Plan of Care - Deng Fuentes RN - 09/27/2023 7:00 PM EDT Pt remains AOx4. VSS. Drain output below 10cc on 3x drains, team notified, no new orders. Problem: Adult Inpatient Plan of Care Goal: Plan of Care Review Outcome: Ongoing (Interventions Implemented as Appropriate) Goal: Patient-Specific Goal (Individualized) Outcome: Ongoing (Interventions Implemented as Appropriate) Goal: Absence of Hospital-Acquired Illness or Injury Outcome: Ongoing (Interventions Implemented as Appropriate) Goal: Optimal Comfort and Wellbeing Outcome: Ongoing (Interventions Implemented as Appropriate) Goal: Readiness for Transition of Care Outcome: Ongoing (Interventions Implemented as Appropriate) * Plan of Care - Robin Jones RN - 09/26/2023 8:33 AM EDT Problem: Adult Inpatient Plan of Care Goal: Plan of Care Review Outcome: Ongoing (Interventions Implemented as Appropriate) Goal: Patient-Specific Goal (Individualized) Outcome: Ongoing (Interventions Implemented as Appropriate) Goal: Absence of Hospital-Acquired Illness or Injury Outcome: Ongoing (Interventions Implemented as Appropriate) Goal: Optimal Comfort and Wellbeing Outcome: Ongoing (Interventions Implemented as Appropriate) Goal: Readiness for Transition of Care Outcome: Ongoing (Interventions Implemented as Appropriate) * Consult Note - Jong Maria DO - 09/25/2023 10:45 AM EDT INFECTIOUS DISEASE PROGRESS NOTE Reason for Consult: WIND TECHNICIAN Shunt Infection Consulting Service: Neurosurgery Consulting Attending: Rhoda Jimenez MD Admission Date: 09/23/2023 Interval Events Chapin Costa is a 52 y.o. 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 States that his ALICEA and symptoms have mostly resolved. Currently pain free. Afebrile since admission. Flagyl and CTX stopped. Review of Systems: Pertinent positives and negatives noted in HPI. 14 point ROS otherwise negative except noted in HPI. Past Medical History: Past Medical History: Diagnosis Date Depression Hearing loss r ear Hydrocephalus associated with congenital aqueduct stenosis Hyperlipidemia Hypertension Memory disorder Seizures Syncope and collapse Vision abnormalities related to hydrocephalus Past Surgical History: Past Surgical History: Procedure Laterality Date CARPAL TUNNEL RELEASE Right CHOLECYSTECTOMY, LAPAROSCOPIC IR ALL DRAINAGE PROCEDURES 06/18/2023 IR All Drainage Procedures Bentley Arceo MD [facility] INTERVENTIONL RAD PRO ALVEOLOPLASTY W EXTRACTIONS, 4 OR MORE TEETH, PER QUADRANT N/A 10/18/2020 ALVEOPLASTY,IN CONJUNCTION WITH EXTRACTIONS,PER QUADRANT,ENT (WRVU 4.06) performed by Shan Rivero MD at [facility] OSC PRO EXTRACTION, ERUPTED TOOTH OR EXPOSED ROOT N/A 10/18/2020 EXTRACTION, ERUPTED TOOTH OR EXPOSED ROOT (WRVU 0.62) performed by Shan Rivero MD at [facility] OSC PRO IMPACT TOOTH REM BONY W/COMP N/A 10/18/2020 SURGICAL EXTRACTIONS, REMOVAL OF IMPACTED TOOTH, COMPLETELY BONY WITH UNUSUAL SURGICAL COMPLICATIONS (WRVU 2.91) performed by Shan Rivero MD at [facility] OSC PRO IMPACT TOOTH REMOV COMP BONY N/A 10/18/2020 SURGICAL EXTRACTIONS, REMOVAL OF IMPACTED TOOTH, COMPLETELY BONY (WRVU 1.93) performed by Shan Rivero MD at [facility] OSC PRO REMOVAL ERUPTED TOOTH WITH ELEVATION OF MUCOPERIOSTEAL FLAP Bilateral 10/18/2020 SURGICAL EXTRACTIONS REQUIRING ELEVATION OF MUCOPERIOSTEAL FLAP AND REMOVAL OF BONE OR SECTION OF TOOTH (WRVU 1.09) performed by Shan Rivero MD at [facility] OSC PRO REMOVAL, COMPLETE CSF SHUNT, W/O REPLACE Right 06/20/2023 @REMOVAL OF COMPLETE CSF SHUNT, W/O REPLACEMENT (WRVU 7.38) performed by Frank Murray MD at [facility] OR PRO REMOVAL, COMPLETE CSF SHUNT, W/O REPLACE N/A 09/24/2023 @REMOVAL OF COMPLETE CSF SHUNT, W/O REPLACEMENT (WRVU 7.38) performed by Rhoda Jimenez MD at [facility] OR PRO REPLACEMENT/REVISION, CSF SHUNT Right 06/09/2023 REVISION OR REPLACEMENT CSF SHUNT (WRVU 11.43) performed by Rhoda Jimenez MD at [facility] MAIN OR PRO REPLACEMENT/REVISION, CSF SHUNT Right 06/29/2023 REVISION OR REPLACEMENT CSF SHUNT (WRVU 11.43) performed by Rhoda Jimenez MD at [facility] CSI PRO RESECT SMALL INTEST, SINGL RESEC/ANAS N/A 07/03/2023 @BOWEL RESECTION, SMALL INTESTINE SINGLE ANASTOMOSIS (WRVU 20.82) performed by Frank Murray MD at [facility] MAIN OR [facility] STEREOTACTIC CPTR ASSTD PX CRANIAL, INTRADURAL N/A 09/24/2023 STEREOTACTIC COMPUTER-ASSTD NAVIGATIONAL CRANIAL INTRADURAL (WRVU 3.75) performed by Rhoda Jimenez MD at [facility] MAIN OR PRO TWIST HOLE SKULL, IMPLANT CATH/DEVICE 09/24/2023 @TWIST DRILL HOLE, IMPLANT VENTRICULAR OR ICP MONITOR. CATH. (WRVU 4.99) performed by Rhoda Jimenez MD at [facility] MAIN OR [facility] UNLISTED PROCEDURE NERVOUS SYSTEM Right 05/24/2022 EXPLORATION VENTRICULO-PERITONEAL SHUNT (WRVU 25.48) performed by Rhoda Jimenez MD at [facility] MAIN OR PRO VENTRICULO-CISTERNOSTOMY Right 09/24/2023 @VENTRICULOCISTERNOSTOMY (WRVU 22.58) performed by Rhoda Jimenez MD at [facility] MAIN OR SHOULDER SURGERY ULNAR TUNNEL RELEASE Right VENTRICULOPERITONEAL SHUNT Multiple revisions - ~46 prior revisions Medications: Scheduled Meds: melatonin 6 mg Oral Nightly hydrOXYzine 25 mg Oral Nightly levothyroxine 25 mcg Oral Daily metoprolol succinate XL 25 mg Oral Daily pantoprazole EC 40 mg Oral Daily sertraline 200 mg Oral Daily topiramate 25 mg Oral Daily sodium chloride 0.9 % (flush) 5 mL Intravenous BID acetaminophen 1,000 mg Oral Q6H DAMIEN Or acetaminophen 975 mg Oral Q6H DAMIEN Or acetaminophen 650 mg Rectal Q6H DAMIEN senna-docusate 2 tablet Oral BID docusate sodium 100 mg Oral BID vancomycin 1.25 g Intravenous Q12H And diphenhydrAMINE 25 mg Intravenous Q12H Allergies/Adverse drug reactions: Allergies Allergen Reactions Latex Other reaction(s): hives with latex powdered gloves Penicillins Rash Childhood rash/hive with penicillin. Tolerated amox-clav and amp 05/2023. Tolerated cephalosporins. Tegaderm [Transparent Dressings] Itching and Other (See Comments) Patient needs no sting barrier wipes prior to Tegaderm application. Tolerates Tegaderm dressing post-application of skin barrier without itching/hives per patient. Vancomycin Hives and Itching Other reaction(s): Skin Rash Administering IV Benadryl prior to each Vancomycin dose seems to alleviate the reaction/allergy. Vancomycin Analogues Vancomycin Hcl Family History: Family History Problem (# of Occurrences) Relation (Name,Age of Onset) Muscular Dystrophy (1) Cousin Physical Exam: Last value Range last 24 hrs Temperature Temp: 36.4 ??C (97.6 ??F) Temp: [36.1 ??C (97 ??F)-37.1 ??C (98.8 ??F)] Heart Rate Heart Rate: 64 Heart Rate: [50-92] Blood Pressure BP: 98/54 BP: (88-120)/(52-79) Respiratory Rate Resp: 19 Resp: [14-20] SpO2 SpO2: 92 % SpO2: [89 %-97 %] General: no acute distress Head: Bandaged near shunt placement post surgical site, EVD drain in with no fluid drainage currently EENT: No conjunctival petechiae Neck: No LAD Cardiovascular: RRR, no murmur, rubs, or gallops Pulmonary: Lungs clear to auscultation bilaterally; no wheezing, rhonchi, or rales Abdomen: Soft, non-tender, non-distended Ext: No deformity Skin: No rash on visible skin Neuro: A&O, moves all 4 extremities spontaneously Psych: Euthymic, pleasant I have reviewed the pertinent laboratory, microbiology, and diagnostic/radiology/procedure results: Recent Labs 09/25/23 0320 09/24/23 0030 09/23/23 1810 WBC 18.1* 11.6* 10.8* HGB 14.8 16.0 17.0* HCT 43.6 47.0 49.4* PLATELET 237 213 227 Recent Labs 09/25/23 0320 09/24/23 0030 09/23/23 1810 NA 141 139 137 K 4.2 3.8 3.8 CL 107 104 100 CO2 22 23 22 BUN 13 13 14 CREATININE 1.08 0.89 1.05 CRP (mg/L) Date Value 09/23/2023 3.6 07/23/2023 3.8 06/16/2023 107.8 (H) 08/23/2022 3.6 08/21/2022 8.2 (H) 06/10/2022 10.9 (H) 05/24/2022 10.8 (H) 02/10/2019 2.3 01/15/2017 2.6 Component Value Date/Time SPGRAVITYUA >=1.030 (A) 07/02/20231952 PHUADIP 5.5 07/02/20231952 PROTEINUADIP Negative 07/02/20231952 GLUCOSEU Negative 07/02/20231952 KETONESUA Trace (A) 07/02/20231952 UROBILIUADIP Normal 07/02/20231952 BLOODUADIP Negative 07/02/20231952 NITRATEUA Negative 07/02/20231952 LEUKOESTERUA Negative 07/02/20231952 BILIRUBINUA Negative 07/02/20231952 Microbiology: Prelim TUBE TEST 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 culture growing Gram Positive Rods Antimicrobials: Vancomycin CTX d/c 8/1 Flagyl d/c 09/23 Imaging/diagnostics: CT Head 09/22, no change in caliber of ventricles Impression: Chapin Costa is a 52 y.o. 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 Today he has an elevated white count which could be post surgical. Pt has GPR's growing on the prelim TUBE TEST TECHNICIAN culture. The multitude of organisms this could be are enteroccocus that he grew intra-abdominally before, listeria, cutibacterium, and corneybacterium amongst others. IV vancomycin should provide adequate coverage for all these bacteria. We will await final speciation and sensitivities of the cultures. We recommend obtaining a repeat cell count and culture off the EVD and if this culture is negative at 48 hours, new shunt can be re-implanted as per IDSA 2017 guidelines. RECOMMENDATIONS: Continue IV vancomycin Please obtain repeat cell count and culture off EVD Patient discussed with ID attending Dr. Carmona. Thank you for the consult. ID consult service will continue to follow. . Please page ID Red team (pager [phone]) with questions or concerns. Jong Maria, DO Internal Medicine PGY-2 Pager: [phone] Epic Chat 09/25/2023 Associated attestation - Leighton Carmona MD - 09/25/2023 8:15 PM EDT ID Attending Addendum: I have seen and examined this patient. I have reviewed and agree with the history, findings, assessment, and plan of care as documented in Dr. Maria's note. The assessment and plan were formulated in discussion with me. Fluid obtained from EVD today had 80 WBCs (93% PMNs) with protein 30 and [id number]. This is higher than the 4 WBCs on the fluid obtained on 09/23/23 off of the WIND 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. Gram stain negative, culture pending from today, and the GPRs seen on the 09/23/23 CSF Gram stain have not yetspeciated. Mr. Costa remains on IV vancomycin and is tolerating this with no rash, despite reported skin rash in the past. He is getting IV Benadryl prior to each vancomycin dose. He reports that his pre-admission symptoms have all improved since removal of the WIND 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. I will reach out to Dr. Jimenez (Neurosurgery) regarding plans for a new WIND 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. Mr. Costa's WBC count was up to 18.1 today, but this was felt to be a post- operative leukocytosis. He was asymptomatic with no fever. Leighton Carmona MD * Plan of Care - Robin Jones RN - 09/25/2023 9:16 AM EDT Problem: Adult Inpatient Plan of Care Goal: Plan of Care Review Outcome: Ongoing (Interventions Implemented as Appropriate) Goal: Patient-Specific Goal (Individualized) Outcome: Ongoing (Interventions Implemented as Appropriate) Goal: Absence of Hospital-Acquired Illness or Injury Outcome: Ongoing (Interventions Implemented as Appropriate) Goal: Optimal Comfort and Wellbeing Outcome: Ongoing (Interventions Implemented as Appropriate) Goal: Readiness for Transition of Care Outcome: Ongoing (Interventions Implemented as Appropriate) * Plan of Care - Misbah Enciso RN - 09/24/2023 9:14 PM EDT Problem: Adult Inpatient Plan of Care Goal: Plan of Care Review Outcome: Ongoing (Interventions Implemented as Appropriate) Goal: Patient-Specific Goal (Individualized) Outcome: Ongoing (Interventions Implemented as Appropriate) Goal: Absence of Hospital-Acquired Illness or Injury Outcome: Ongoing (Interventions Implemented as Appropriate) Goal: Optimal Comfort and Wellbeing Outcome: Ongoing (Interventions Implemented as Appropriate) Goal: Readiness for Transition of Care Outcome: Ongoing (Interventions Implemented as Appropriate) * Consult Note - Jong Maria DO - 09/24/2023 12:57 PM EDT INFECTIOUS DISEASE CONSULTATION NOTE Reason for Consult: WIND TECHNICIAN Shunt Infection Consulting Service: Neurosurgery Consulting Attending: Rhoda Jimenez MD Admission Date: 09/23/2023 History of Present Illness: Chapin Costa is a 52 y.o. 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 Previously had a WIND 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 which was complicated by an abdominal abscess w/ E faecalis and SBO s/p bowel resection. He is now currently admitted after another suspected shunt infection as he presented with ALICEA, fevers, and generalized malaise. His shunt was removed and an EVD was placed. Pt is currently relatively pain free and does not have any acute complaints. Review of Systems: Pertinent positives and negatives noted in HPI. 14 point ROS otherwise negative except noted in HPI. Past Medical History: Past Medical History: Diagnosis Date Depression Hearing loss r ear Hydrocephalus associated with congenital aqueduct stenosis Hyperlipidemia Hypertension Memory disorder Seizures Syncope and collapse Vision abnormalities related to hydrocephalus Past Surgical History: Past Surgical History: Procedure Laterality Date CARPAL TUNNEL RELEASE Right CHOLECYSTECTOMY, LAPAROSCOPIC IR ALL DRAINAGE PROCEDURES 06/18/2023 IR All Drainage Procedures Bentley Arceo MD [facility] INTERVENTIONL RAD PRO ALVEOLOPLASTY W EXTRACTIONS, 4 OR MORE TEETH, PER QUADRANT N/A 10/18/2020 ALVEOPLASTY,IN CONJUNCTION WITH EXTRACTIONS,PER QUADRANT,ENT (WRVU 4.06) performed by Shan Rivero MD at [facility] OSC PRO EXTRACTION, ERUPTED TOOTH OR EXPOSED ROOT N/A 10/18/2020 EXTRACTION, ERUPTED TOOTH OR EXPOSED ROOT (WRVU 0.62) performed by Shan Rivero MD at [facility] OSC PRO IMPACT TOOTH REM BONY W/COMP N/A 10/18/2020 SURGICAL EXTRACTIONS, REMOVAL OF IMPACTED TOOTH, COMPLETELY BONY WITH UNUSUAL SURGICAL COMPLICATIONS (WRVU 2.91) performed by Shan Rivero MD at [facility] OSC PRO IMPACT TOOTH REMOV COMP BONY N/A 10/18/2020 SURGICAL EXTRACTIONS, REMOVAL OF IMPACTED TOOTH, COMPLETELY BONY (WRVU 1.93) performed by Shan Rivero MD at [facility] OSC PRO REMOVAL ERUPTED TOOTH WITH ELEVATION OF MUCOPERIOSTEAL FLAP Bilateral 10/18/2020 SURGICAL EXTRACTIONS REQUIRING ELEVATION OF MUCOPERIOSTEAL FLAP AND REMOVAL OF BONE OR SECTION OF TOOTH (WRVU 1.09) performed by Shan Rivero MD at [facility] OSC PRO REMOVAL, COMPLETE CSF SHUNT, W/O REPLACE Right 06/20/2023 @REMOVAL OF COMPLETE CSF SHUNT, W/O REPLACEMENT (WRVU 7.38) [facility]PLACEMENT/REVISION, CSF SHUNT Right 06/09/2023 REVISION OR REPLACEMENT CSF SHUNT (WRVU 11.43) performed by Rhoda Jimenez MD at [facility] MAIN OR PRO REPLACEMENT/REVISION, CSF SHUNT Right 06/29/2023 REVISION OR REPLACEMENT CSF SHUNT (WRVU 11.43) performed by Rhoda Jimenez MD at [facility] CSI PRO RESECT SMALL INTEST, SINGL RESEC/ANAS N/A 07/03/2023 @BOWEL RESECTION, SMALL INTESTINE SINGLE ANASTOMOSIS (WRVU 20.82) performed by Frank Murray MD at [facility] MAIN OR PRO UNLISTED PROCEDURE NERVOUS SYSTEM Right 05/24/2022 EXPLORATION VENTRICULO-PERITONEAL SHUNT (WRVU 25.48) performed by Rhoda Jimenez MD at [facility] MAIN OR SHOULDER SURGERY ULNAR TUNNEL RELEASE Right VENTRICULOPERITONEAL SHUNT Multiple revisions - ~46 prior revisions Medications: Scheduled Meds: hydrOXYzine 25 mg Oral Nightly levothyroxine 25 mcg Oral Daily metoprolol succinate XL 25 mg Oral Daily pantoprazole EC 40 mg Oral Daily sertraline 200 mg Oral Daily topiramate 25 mg Oral Daily sodium chloride 0.9 % (flush) 5 mL Intravenous BID acetaminophen 1,000 mg Oral Q6H DAMIEN Or acetaminophen 975 mg Oral Q6H DAMIEN Or acetaminophen 650 mg Rectal Q6H DAMIEN senna-docusate 2 tablet Oral BID docusate sodium 100 mg Oral BID cefTRIAXone 2 g Intravenous Q12H metroNIDAZOLE 500 mg Intravenous Q8H vancomycin 1.25 g Intravenous Q12H And diphenhydrAMINE 12.5 mg Intravenous Q12H Allergies/Adverse drug reactions: Allergies Allergen Reactions Latex Other reaction(s): hives with latex powdered gloves Penicillins Rash Childhood rash/hive with penicillin. Tolerated amox-clav and amp 05/2023. Tolerated cephalosporins. Tegaderm [Transparent Dressings] Itching and Other (See Comments) Patient needs no sting barrier wipes prior to Tegaderm application. Tolerates Tegaderm dressing post-application of skin barrier without itching/hives per patient. Vancomycin Hives and Itching Other reaction(s): Skin Rash Administering IV Benadryl prior to each Vancomycin dose seems to alleviate the reaction/allergy. Vancomycin Analogues Vancomycin Hcl Family History: Family History Problem (# of Occurrences) Relation (Name,Age of Onset) Muscular Dystrophy (1) Cousin Physical Exam: Last value Range last 24 hrs Temperature Temp: 36.2 ??C (97.2 ??F) Temp: [36.1 ??C (97 ??F)-37 ??C (98.6 ??F)] Heart Rate Heart Rate: 50 Heart Rate: [49-74] Blood Pressure BP: 115/79 BP: (96-148)/(52-101) Respiratory Rate Resp: 14 Resp: [11-23] SpO2 SpO2: 96 % SpO2: [93 %-98 %] General: no acute distress Head: Bandaged near shunt placement post surgical site, EVD drain in with no fluid drainage currently EENT: No conjunctival petechiae Neck: No LAD Cardiovascular: RRR, no murmur, rubs, or gallops Pulmonary: Lungs clear to auscultation bilaterally; no wheezing, rhonchi, or rales Abdomen: Soft, non-tender, non-distended Ext: No deformity Skin: No rash on visible skin Neuro: A&O, moves all 4 extremities spontaneously Psych: Euthymic, pleasant I have reviewed the pertinent laboratory, microbiology, and diagnostic/radiology/procedure results: Recent Labs 09/24/23 0030 09/23/23 1810 WBC 11.6* 10.8* HGB 16.0 17.0* HCT 47.0 49.4* PLATELET 213 227 Recent Labs 09/24/23 0030 09/23/23 1810 NA 139 137 K 3.8 3.8 CL 104 100 CO2 23 22 BUN 13 14 CREATININE 0.89 1.05 CRP (mg/L) Date Value 09/23/2023 3.6 07/23/2023 3.8 06/16/2023 107.8 (H) 08/23/2022 3.6 08/21/2022 8.2 (H) 06/10/2022 10.9 (H) 05/24/2022 10.8 (H) 02/10/2019 2.3 01/15/2017 2.6 Component Value Date/Time SPGRAVITYUA >=1.030 (A) 07/02/20231952 PHUADIP 5.5 07/02/20231952 PROTEINUADIP Negative 07/02/20231952 GLUCOSEU Negative 07/02/20231952 KETONESUA Trace (A) 07/02/20231952 UROBILIUADIP Normal 07/02/20231952 BLOODUADIP Negative 07/02/20231952 NITRATEUA Negative 07/02/20231952 LEUKOESTERUA Negative 07/02/20231952 BILIRUBINUA Negative 07/02/20231952 Microbiology: Prelim TUBE TEST 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 culture growing Gram Positive Rods Antimicrobials: Vancomycin CTX Flagyl Imaging/diagnostics: CT Head 09/22, no change in caliber of ventricles Impression: Chapin Costa is a 52 y.o. 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 Pt has GPR's growing on the prelim TUBE TEST TECHNICIAN culture. The multitude of organisms this could be are enteroccocus that he grew intra-abdominally before, listeria, cutibacterium, and corneybacterium amongst others. IV vancomycin should provide adequate coverage for all these bacteria, and thus recommend stopping the CTX and flagyl. We will await final speciation and sensitivities of the cultures. RECOMMENDATIONS: Continue IV vancomycin Stop CTX Stop Flagyl Patient discussed with ID attending Dr. Carmona. Thank you for the consult. ID consult service will continue to follow. . Please page ID Red team (pager [phone]) with questions or concerns. Jong Maria, DO Internal Medicine PGY-2 Pager: [phone] Epic Chat 09/24/2023 Associated attestation - Leighton Carmona MD - 09/24/2023 11:04 PM EDT ID Attending Addendum: I have seen and examined this patient. I have reviewed and agree with the history, findings, assessment, and plan of care as documented in Dr. Maria's note. The assessment and plan were formulated in discussion with me. In short, Mr. Costa is a 52y/o M with a history of shunted congenital hydrocephalus with recent shunt revisions in 05/2023 and 06/2023, along with a recent E faecalis intra-abdominal abscess and SBO requiring resection. He was admitted with fever, malaise, and HAs, and he is nows/p complete removal of his WIND 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 on 09/24/23 with placement of an EVD. Shunt culture from 09/23/23is growing GPRs, and cultures from 09/24/23 are pending. We have recommended IV vancomycin monotherapy for what appears to be a monomicrobial Gram positive infection. The two GPRs that most commonly cause TUBE TEST 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 infections are Cutibacterium and Corynebacterium. Dr. Maria's note also mentions Listeria, for which vancomycin is not recommended in TUBE TEST TECHNICIAN infections, but this is not a common cause of CNSshunt infections. CSF analysis on 09/23/23 showed only 4 WBCs, with a normal glucose (65), and a protein of 70. This is relevant, as 10 days may be sufficient after shunt removal. In general, it is recommended to resample the CSF in 48hrs for culture. If negative, then WIND 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 can be replaced. Leighton Carmona MD * Brief Op Note - Mo Marcus MD - 09/24/2023 11:01 AM EDT Brief Operative Note Patient Name: Chapin Costa : [id number] MR#: [id number] Case Date: 09/24/2023 Surgeon: Surgeons and Role: * Rhoda Jimenez MD - Primary * Mo Marcus MD - Resident - Assisting Preoperative diagnosis: removal of right ventriculopleural shunt Postoperative diagnosis: removal of right ventriculopleural shunt Procedure(s) (LRB): @REMOVAL OF COMPLETE CSF SHUNT, W/O REPLACEMENT (WRVU 7.38) (N/A) STEREOTACTIC COMPUTER-ASSTD NAVIGATIONAL CRANIAL INTRADURAL (WRVU 3.75) (N/A) @TWIST DRILL HOLE, IMPLANT VENTRICULAR OR ICP MONITOR. CATH. (WRVU 4.99) @VENTRICULOCISTERNOSTOMY (WRVU 22.58) (Right) Anesthesia: General Findings: proximal + distal catheter and valve. Complications: No acute Estimated Blood Loss: 20cc Specimens removed during surgery: none Fluids: Intraprocedure Crystalloid Total 3cc PRBCs: none (See Anesthesia Record/Report for Other Blood Products) Urine Output: (no urine output recorded) Drains: EVD - Right Disposition: Extubated in OR; taken to PACU. Step down afterwards. Condition: doing well without problems (Please see the Surgical Encounter Summary for any Implant and Specimen details pertinent to this patient.) * Op Note - Rhoda Jimenez MD - 09/24/2023 10:03 AM EDT [facility] [place] Patient Name: Chapin Costa : [id number] MR#: [id number] Case Date: 09/24/2023 Surgeon: Surgeons and Role: * Rhoda Jimenez MD - Primary * Mo Marcus MD - Resident - Assisting Preoperative diagnosis: removal of right ventriculopleural shunt Postoperative diagnosis: removal of right ventriculopleural shunt Procedure(s) (LRB): @REMOVAL OF COMPLETE CSF SHUNT, W/O REPLACEMENT (WRVU 7.38) (N/A) STEREOTACTIC COMPUTER-ASSTD NAVIGATIONAL CRANIAL INTRADURAL (WRVU 3.75) (N/A) @TWIST DRILL HOLE, IMPLANT VENTRICULAR OR ICP MONITOR. CATH. (WRVU 4.99) @VENTRICULOCISTERNOSTOMY (WRVU 22.58) (Right) Anesthesia: General Estimated Blood Loss: Specimens removed during surgery: * No specimens in log * Drains: * No LDAs found * Surgical Closure: Primary Closure - skin incision is closed but with open spaces for wires, serena, drains or other devices Disposition: awakened from anesthesia, extubated and taken to the recovery room in a stable condition, having suffered no apparent untoward event. Condition: doing well without problems (Please see the Surgical Encounter Summary for any Implant and Specimen details pertinent to this patient.) Chapin Costa is a 52-year-old gentleman with history of shunted hydrocephalus who is well-known to me. He presented to the emergency department last night with complaints of swelling and pain over his shunt site in the right occiput. The shunt was tapped, and the Gram stain was positive. We externalized the shunt at the clavicle, and noted that it was functional. This morning, after discussion of risks, benefits, and alternatives, elected to undergo removal of the entire CSF shunt system, and placement of a right frontal EVD. The patient was seen and interviewed in his hospital bed. An updated history and physical was obtained. Consent was obtained. The patient was taken back to the operative anesthesia. General endotracheal anesthesia was induced without complication. The patient was patient's supine, his head was placed on a gel donut, and all pressure points were padded. The head was registered to the 3D thin slicehead CT using the Axiom system. Navigational registration was checked for accuracy using known landmarks. The drainage bag was not disconnected from the shunt, this is capped with a sterile red, and then prepped into the field. The entire right frontal aspect of the head and chest were now sterilely prepped and draped in the usual fashion. A timeout was undertaken. 2 g of cefazolin were administered intravenously. We proceeded by first opening the incision overlying the valve and the shunt entry site. This was anesthetized with quarter percent Marcaine with epinephrine. A 10 blade was used toopen the skin, and Bovie was used to open the paracranium. We now able to expose the valve and shunt without difficulty. There was no leila pus in this location. We were able to cut the tube distal to the valve, and ligated with a 2-0 silk suture, and then the entire distal shunt system was removedby pulling on the clavicular catheter. We then turned our attention to the proximal catheter. This was covered with some scar tissue, which were removed with the Bovie. We then loaded the EVD catheter on the Axiom probe after trimming it to fit. The ventricular catheter was now removed smoothly, and the Axiom probe lined up in the same trajectory and advanced until it was 6 cm at the outer table.The catheter was now tunneled superior medially. We were able to confirm copious, spontaneous CSF drainage. The Axiom catheter was now capped with a sterile right. We then proceeded to copiously irrigate all the incisions the cranial incision, as well as the chest incision. We proceeded to close. The cranial incision was closed with interrupted 3-0 Vicryl's, followed by isabella. The posterior incision over the valve was closed with 3-0 Vicryl's followed by isabella, and the skin in the chest wasclosed with interrupted 4-0 nylon's. The EVD catheter was now sterilely connected to the reservoir,and flush through so there was no interlocks. The EVD was now turned off. The drape was carefully removed. At the end of the case, all counts are correct. I was present for the entire procedure. Surgical Infection Prevention Bundle Used? N/A Attestation: Case Date: 09/24/2023 I was present and I participated during the entire procedure (does not need to include opening and closing). Rhoda Jimenez MD 10/12/2023 * Initial Assessments - Macie Menezes RN - 09/24/2023 9:53 AM EDT Office of Care Management Initial Assessment Macie Menezes RN reviewed record and discussed patient with Care Team. Source of Information: Team, bedside nurse, medical record, and Guardian Introduced self/reviewed role; services accepted. Admitted From: Home Reason for Hospitalization: shunt isnt working, might have an infection Past medical History: Past Medical History: Diagnosis Date Depression Hearing loss r ear Hydrocephalus associated with congenital aqueduct stenosis Hyperlipidemia Hypertension Memory disorder Seizures Syncope and collapse Vision abnormalities related to hydrocephalus Hospitalizations Within the Past 30 Days: no previous admission in last 30 days Current Decision-Making Capacity: Guardian Name(s) of Court Appointed Guardian(s): Tracy Fregoso Court Appointed Guardian(s) Contact Information: [phone] Guardianship paperwork on file?: Yes If AD's have not been completed the following surrogate would be surrogate decision maker per [place] surrogate decision making law. (Only good for 180 days) Any patient receiving care in [place] must abide by [place] law. The hierarchy for surrogate decision making is: (a) Patient???s spouse or civil union partner unless there is a divorce proceeding, separation agreement, or restraining order limiting that person???s relationship with the patient. (b) Any adult son or daughter of the patient. (c) Either parent of the patient. (d) Any adult brother or sister of the patient. (e) Any adult grandchild of the patient. (f) Any grandparent of the patient. (g) Any adult aunt, uncle, niece, or nephew of the patient. (h) A close friend of the patient. (i) The agent with financial power of banking attorney or a conservator appointed in accordance with RSA 464-A. (j) The guardian of the patient???s estate. Advance Care Planning: Attempt Cardiopulmonary Resuscitation - Inpatient <no information> -Advanced Directive: No, need to discuss Current Coping/Education/Information Needs: declines Current Functional Ability: Assistive Person Functional Status Prior to Admission: Independent Prior ADLs & IADLs: Assistance Needed with ADLs & IADLs Home Environment: Others in the home: pet(s). Current Living Arrangements: home/apartment/condo. Accessibility Concerns:no concerns. In the last 12 months, was there a time when you were not able to pay the mortgage or rent on time?: No In the past 12 months, how many times have you moved where you were living?: 0 At any time in the past 12 months, were you homeless or living in a half-way (including now)?: No In the past 12 months has the [employer], [employer], oil, or water [employer] threatened to shut off services in your home?: No Within the past 12 months, you worried that your food would run out before you got the money to buymore.: Never true Within the past 12 months, the food you bought just didn't last and you didn't have money to get more.: Never true Resource / Environmental Concerns: Resource/Environmental Concerns: none In the past 12 months, has lack of transportation kept you from medical appointments or from getting medications?: No In the past 12 months, has lack of transportation kept you from meetings, work, or from getting things needed for daily living?: No Current DME: none Home Address confirmed as: [address] [place] [address] [address] [facility] [address] Social & Family Supports: All names listed below confirmed with patient as current and correct Extended Emergency Contact Information Primary Emergency Contact: Meng Fregosoille Address: [address] [place], [place] [id number] [place] [address] Mobile Relation: Guardianship Secondary Emergency Contact: RICH FREGOSO Address: [address] [place], [place] [address] [place] [address] Mobile Relation: Step parent Current Care Provided by: self, parent(s) Provides Primary Care For: no one, unable/limited ability to care for self Caregiver if needed: parent(s) Quality of Family relationships: helpful, involved Community Resources being provided currently: none Behavioral Health History: family declines Substance Use/Abuse listed: Social History Tobacco Use Smoking Status Never Smokeless Tobacco Never 0 No problems reported 1-2 Low level 3-5 Moderate level 6-8 Substantial level 9- 10 Severe level 0 to 7 points: Low risk 8 to 15 points: Medium risk 16 to 19 points: High risk 20 to 40 points: Addiction likely Other Pertinent/Service Specific Information: denies Health/Prescription Coverage: Primary Insurance: MEDICARE Payor: MEDICARE / Plan: MEDICARE PART A & B / Product Type: *No Product type* / Secondary Insurance: MEDICAID [place] ONLY if patient has Medicare A&B - Does this patient have secondary insurance?: Yes ; Prescription Coverage: Yes Preferred Pharmacy: [facility] [address] [address] Status: Patient is a : No Primary Care Provider confirmed: MARVA Gordon [phone] Patient/Caregiver Goals of Treatment: Potential Needs for Transition of Care: none (pending hospital course. fmaily does not anticipate needs at at this time) Agency Referrals: Not Applicable Transportation: no concerns Transportation Anticipated: family or friend will provide Concerns to be Addressed: no discharge needs identified Assessment: Patient is admitted to neurosurgery service for Shunt malfunction [T85.618A] Nonintractable headache, unspecified chronicity pattern, unspecified headache type [R51.9]. [employer] called patient's guardian/mother (Tracy-listed) to obtain all the information for this IA. Patientis independent at baseline for mobility needs. Patient receives 1 daily check ins from family and family assists with transportation needs at baseline. Patient lives with his dog in a 3rd story apartment with elevator access. Mother ( Tracy) notes the apartment is small and patient does not require the use of DME at baseline. Plan going forward: Plan for OR today. Family does not anticipate any needs at this time (mother notes-patient has had procedures in the past). Plan for family to transport patient home at d/c. Care Management team will continue to follow and assist with discharge planing and coordination of care as indicated. Macie Menezes RN, Pager-[phone] * Consult Note - Sumit Hill, [facility] - 09/24/2023 1:28 AM EDT TelePharmacy Home Medication List Update for Medication Reconciliation 09/24/23 1:28 AM Chapin Costa 1970 Allergies Allergen Reactions Latex Other reaction(s): hives with latex powdered gloves Penicillins Rash Childhood rash/hive with penicillin. Tolerated amox-clav and amp 05/2023. Tolerated cephalosporins. Tegaderm [Transparent Dressings] Itching and Other (See Comments) Patient needs no sting barrier wipes prior to Tegaderm application. Tolerates Tegaderm dressing post-application of skin barrier without itching/hives per patient. Vancomycin Hives and Itching Other reaction(s): Skin Rash Administering IV Benadryl prior to each Vancomycin dose seems to alleviate the reaction/allergy. Vancomycin Analogues Vancomycin Hcl Person Interviewed: patient Quality of Interview/accuracy of medication list: excellent Sources used to compile medication list: [x] Epic medication list [x] SureScripts/Dispense Report [] PCP/Specialist list [] Retail pharmacy [] Patient list [] MAR [] Other Changes made to home medication list: Additions: Calcium/Vit D, Prn hydroxyzine, B12 1000 mg Deletions: Apap, Tums, Omeprazole, Miralax, Pericolace, Topiramate, B12 5000 mg Changes: Sertraline dose is 150 mg (not 200 mg), Levothyroxine is taken HS, Atorvastatin is 40 mg (not 10 mg) Additional Notes: [facility] med list (only pharmacy to fill medications) Recommended changes: Review Topiramate (pt does not take), Sertraline dose, Pantoprazole (pt does not take PPI) The home medication list is now updated to the best of my knowledge and is ready to be reconciled by the provider. Please contact the TelePharmacy Medication Reconciliation Pharmacist at for any questions. Sumit Hill RPH * ED Triage - Marivel Davies RN - 09/23/2023 6:03 PM EDT HPI (Adult) Stated Reason for Visit: Presented due to headache, associated fever and chills. Right side of the occipital region noted to be red and puffy. Ongoing for the last 3 days. History Obtained From: patient documented in this encounter Plan of Treatment Scheduled Orders Name Type Priority Associated Diagnoses Orde r Schedule Body Fluid HOLD Cerebrospinal Shunt Fluid Lab STAT One Time for 1 Occurrences starting 09/23/2023 until 09/23/2023 [place] and [place] [place] Blood Bank Routine One Time for 1 Occurrences starting 09/24/2023 until 09/24/2023 documented as of this encounter Procedures Procedure Name Priority Date/Time Associated Diagnosis Comments BASIC METABOLIC PANEL Routine 10/10/2023 4:16 AM EDT XR SHUNT SERIES Routine 10/09/2023 8:[address] HEAD WO CONTRAST (GENERIC) Routine 10/09/2023 6:39 PM EDT Stereotactic Cptr Asstd Px Cranial, Intradural (59430) 10/09/2023 12:22 PM EDT Hydrocephalus MODIFIER,STEALTH 2,KINEVO 2023 12:22 PM EDT Hydrocephalus Create Shunt:Ventric-Peritoneal ([id number]) 10/09/2023 12:22 PM EDT Hydrocephalus STEREOTACTIC COMPUTER-ASSTD NAVIGATIONAL CRANIAL INTRADURAL Routine 10/09/2023 7:15 AM EDT VENTRICULO-PERITONEAL,-PLEU RAL,-OTHER SHUNT Routine 10/09/2023 7:15 AM EDT ABORH RECHECK (PATIENT HISTORY FOUND) Routine 10/09/2023 6:50 AM EDT TYPE AND SCREEN ([facility]/DULCE MARIA) Routine 10/09/2023 6:50 AM EDT HC PARTIAL THROMBOPLASTIN TIME Routine 10/09/2023 5:13 AM EDT PROTHROMBIN TIME Routine 10/09/2023 5:13 AM EDT CBC (WITH DIFF) Routine 10/09/2023 5:13 AM EDT BASIC METABOLIC PANEL Routine 10/09/2023 5:13 AM EDT IMPLANTABLE DEVICES SCAN 024 12:[address] HEAD WO CONTRAST (GENERIC) Routine 10/08/2023 4:09 AM EDT BASIC METABOLIC PANEL Routine 10/08/2023 1:15 AM EDT CBC (WITH DIFF) Routine 10/07/2023 12:15 AM EDT BASIC METABOLIC PANEL Routine 10/07/2023 12:15 AM EDT SEDIMENTATION RATE Routine 10/06/2023 8:46 AM EDT BASIC METABOLIC PANEL Routine 10/06/2023 8:46 AM EDT CRP, ACUTE INFLAMMATION Add-On 10/05/19 8:16 PM EDT BASIC METABOLIC PANEL Routine 10/05/2023 8:16 PM EDT XR SHUNT SERIES Routine 10/05/2023 9:43 AM EDT BASIC METABOLIC PANEL Routine 10/05/2023 8:17 AM EDT VANCOMYCIN, TROUGH Timed 10/05/2023 4:30 AM EDT CBC (WITH DIFF) Routine 10/05/2023 12:25 AM EDT BASIC METABOLIC PANEL STAT 10/04/2023 8:16 PM EDT SODIUM, URINE, RANDOM Add-On 10/04/2023 9:34 AM EDT OSMOLALITY, URINE, RANDOM Routine 2023 9:34 AM EDT CREATININE, URINE, RANDOM Routine 2023 9:[address] HEAD WO CONTRAST (GENERIC) Routine 10/04/2023 5:05 AM EDT POTASSIUM Routine 10/03/2023 10:49 PM EDT OSMOLALITY Add-On 10/03/2023 10:49 PM EDT BASIC METABOLIC PANEL STAT Add-On 10/03/2023 10:49 PM EDT BASIC METABOLIC PANEL STAT 10/03/2023 8:53 PM EDT CBC (WITH DIFF) Routine 10/03/2023 4:13 AM EDT BASIC METABOLIC PANEL Routine 10/03/2023 4:[address] HEAD WO CONTRAST (GENERIC) STAT 10/02/2023 2:[address] HEAD WO CONTRAST (GENERIC) STAT 10/02/2023 10:[address] HEAD WO CONTRAST (GENERIC) STAT 10/01/2023 4:34 PM EDT CBC (WITH DIFF) Routine 10/01/2023 5:38 AM EDT BASIC METABOLIC PANEL Routine 10/01/2023 5:38 AM EDT PATHOLOGY FLUID REVIEW Routine 1:19 PM EDT CSF DESCRIPTION Routine 09/30/2023 1:19 PM EDT CSF CELL COUNT Routine 09/30/2023 1:19 PM EDT TUBE TEST TECHNICIAN SHUNT CULTURE Routine 09/30/2023 1:19 PM EDT PROTEIN LEVEL CSF Routine 09/30/2023 1:19 PM EDT GLUCOSE LEVEL CSF Routine 09/30/2023 1:19 PM EDT VANCOMYCIN LEVEL, RANDOM Routine 1:45 AM EDT CBC (WITH DIFF) Routine 09/29/2023 1:45 AM EDT BASIC METABOLIC PANEL Routine 09/29/2023 1:45 AM EDT CBC (WITH DIFF) Routine 09/27/2023 3:09 AM EDT BASIC METABOLIC PANEL STAT 09/27/2023 3:09 AM EDT CBC (WITH DIFF) Routine 09/26/2023 3:31 AM EDT PHOSPHORUS Routine 09/26/2023 3:31 AM EDT MAGNESIUM Routine 09/26/2023 3:31 AM EDT VANCOMYCIN, TROUGH Timed 09/26/2023 3:31 AM EDT BASIC METABOLIC PANEL STAT 09/26/2023 3:30 AM EDT HC CSF CELL CT W/ DIFFERENTIAL Routine 09/25/2023 12:25 PM EDT CSF CELL COUNT Routine 09/25/2023 12:25 PM EDT CSF DESC 1 Routine 09/25/2023 12:25 PM EDT IRON STAIN, BODY FLUID Routine 12:25 PM EDT PROTEIN LEVEL CSF Routine 09/25/2023 12:25 PM EDT GLUCOSE LEVEL CSF Routine 09/25/2023 12:25 PM EDT TUBE TEST TECHNICIAN SHUNT CULTURE Routine 09/25/2023 12:24 PM EDT HEMOGRAM Routine 09/25/2023 3:20 AM EDT DIFFERENTIAL, AUTOMATED Routine 09/25/19 3:20 AM EDT CBC (WITH DIFF) Routine 09/25/2023 3:20 AM EDT PHOSPHORUS Routine 09/25/2023 3:20 AM EDT MAGNESIUM Routine 09/25/2023 3:20 AM EDT BASIC METABOLIC PANEL STAT 09/25/2023 3:[address] HEAD WO CONTRAST (GENERIC) Routine 09/24/2023 4:31 PM EDT VENTRICULOCISTERNOSTOMY Routine 09/24/19 10:54 AM EDT TWIST DRILL HOLE, IMPLANT VENTRICULAR OR ICP MONITOR. CATH. Routine 09/24/2023 10:53 AM EDT ANAEROBIC CULTURE Routine 09/24/2023 10:30 AM EDT HC CONC. FOR INFECTIOUS AGENTS Routine 09/24/2023 10:30 AM EDT AFB CULTURE Routine 09/24/2023 10:30 AM EDT BODY FLUID CULTURE, AEROBIC Routine 02/2023 10:30 AM EDT FUNGUS CULTURE Routine 09/24/2023 10:30 AM EDT Ventriculo-Cisternostomy ([id number]) 09/24/2023 8:42 AM EDT removal of right ventriculopleural shunt Twist Hole Skull, Implant Cath/Device ([id number]) 09/24/2023 8:42 AM EDT removal of right ventriculopleural shunt Stereotactic Cptr Asstd Px Cranial, Intradural ([id number]) 09/24/2023 8:42 AM EDT removal of right ventriculopleural shunt Removal, Complete Csf Shunt, W/O Replace ([id number]) 09/24/2023 8:42 AM EDT removal of right ventriculopleural shunt STEREOTACTIC COMPUTER-ASSTD NAVIGATIONAL CRANIAL INTRADURAL Routine 09/24/2023 8:15 AM EDT REMOVAL OF COMPLETE CSF SHUNT, W/O REPLACEMENT Routine 09/24/2023 8:15 AM EDT CALCIUM IONIZED WHOLE BLOOD, CHANO STAT 09/24/2023 3:17 AM EDT TYPE AND SCREEN VALIDITY Routine 024 3:15 AM EDT ABORH RECHECK STATUS Routine 09/24/2023 3:15 AM EDT TYPE AND SCREEN ([facility]CE MARIA) STAT 09/24/2023 3:15 AM EDT POCT GLUCOSE Routine 09/24/2023 2:36 AM EDT HEMOGRAM Routine 09/24/2023 12:30 AM EDT DIFFERENTIAL, AUTOMATED Routine 09/24/19 12:30 AM EDT CBC (WITH DIFF) Routine 09/24/2023 12:30 AM EDT BASIC METABOLIC PANEL Routine 09/24/2023 12:30 AM EDT HC CSF CELL COUNT STAT 09/23/2023 11:30 PM EDT CSF CELL COUNT STAT 09/23/2023 11:30 PM EDT CSF DESC 1 STAT 09/23/2023 11:30 PM EDT TUBE TEST TECHNICIAN SHUNT CULTURE STAT 09/23/2023 11:30 PM EDT PROTEIN LEVEL CSF STAT 09/23/2023 11:30 PM EDT GLUCOSE LEVEL CSF STAT 09/23/2023 11:30 PM EDT L-LACTATE2 WHOLE BLOOD Routine 11:[address] HEAD WO CONTRAST (GENERIC) STAT 09/23/2023 8:01 PM EDT XR SHUNT SERIES STAT 09/23/2023 6:29 PM EDT CRP, ACUTE INFLAMMATION STAT 09/23/19 6:10 PM EDT HEMOGRAM STAT 09/23/2023 6:10 PM EDT DIFFERENTIAL, AUTOMATED STAT 09/23/19 6:10 PM EDT GOLD TUBE HOLD STAT 09/23/2023 6:10 PM EDT BLUE TUBE HOLD STAT 09/23/2023 6:10 PM EDT BLOOD CULTURE STAT 09/23/2023 6:10 PM EDT APTT STAT 09/23/2023 6:10 PM EDT SEDIMENTATION RATE STAT 09/23/2023 6:10 PM EDT PROTHROMBIN TIME STAT 09/23/2023 6:10 PM EDT CBC (WITH DIFF) STAT 09/23/2023 6:10 PM EDT BASIC METABOLIC PANEL STAT 09/23/2023 6:10 PM EDT BLOOD CULTURE Routine 09/23/2023 12:05 AM EDT documented in this encounter Results * CT Head wo Contrast (Generic) (11/12/2023 3:41 PM EDT) FIELDS [place] Signature WORKSTATION ID [id number] RAD Anatomical Region Laterality Modality Head Computed Tomogra phy Impressions 11/12/2023 4:18 PM EDT Interval reduced caliber of the supratentorial ventricles. Thank you for letting us participate in the care of this patient. ??If you are a health care provider and have any questions regarding this report, please contact the number below. ??For patients who have questions please contact the health managed care liaison that requested your imaging first. ? Narrative [...] No midline shift or extra-axial collection. The angel-white differentiation appears maintained. Otomastoid spaces and visualized [...] slitlike. No midline shift orextra-axial collection. The angel-white differentiation appears maintained. Otomastoidspaces and visualized paranasal sinuses are clear. IMPRESSION Interval reduced caliber of the supratentorial ventricles. Thank you for letting us participate in the care of this patient. If youare a health care provider and have any questions regarding this report,please contact the number below. For patients who have questions please contactthe health managed care liaison that requested your imaging first. Rhoda Jimenez MD IMG CT ORDERABLES * (ABNORMAL) Basic Metabolic Panel (10/10/2023 4:16 AM EDT) Glucose 121 65 - 199 mg/dL 10/10/2023 4:54 AM EDT [facility] Comment:Glucose Concentratio n >=200 mg/dL plus symptoms is consistent with Diabetes Mellitus. Blood Urea Nitrogen 15 10 - 20 mg/dL 10/10/2023 4:54 AM EDT [facility] Creatinine 1.12 0.80 - 1.50 mg/dL 10/10/2023 4:54 AM EDT [facility] Sodium 137 135 - 145 mMol/L 10/10/2023 4:54 AM [facility] Potassium 4.4 3.5 - 5.0 mMol/L 10/10/2023 4:54 AM [facility] Chloride 104 98 - 107 mMol/L 10/10/2023 4:54 AM [facility] Carbon Dioxide 19(L) 22 - 31 mMol/L 10/10/2023 4:54 AM [facility] Anion Gap 14 5 - 15 mMol/L 10/10/2023 4:54 AM [facility] Calcium 9.3 8.5 - 10.5 mg/dL 10/10/2023 4:54 AM [facility] Est Glomerular Filtration Rate - Male 80 mL/min/1. 73 m?? 10/10/2023 4:54 AM [facility] Comment: This patient's estimated GFR was [...] AM EDT Rhoda Jimenez MD CHEMISTRY ORDERABLES [facility] [place] [address] * XR Shunt Series (10/09/2023 8:42 PM EDT) WORKSTATION ID [id number] RAD Anatomical Region Laterality Modality N/A Digital Radiogra phy Impressions 10/10/2023 10:37 AM EDT Left parietal approach ventriculoperitoneal shunt catheter. ??The visualized segments of this catheter show no discontinuity. ??However, there is a short segments between the left 3rd and 5th ribs which is not well-visualized on either the AP or lateral projections, and therefore this segment of the catheter is not completely evaluated. ??Repeat radiographs with oblique views of the chest or a CT of the chest could be considered if there is concern for shunt catheter discontinuity or malfunction. Thank you for letting us participate in the care of this patient. ??If you are a health care provider and have any questions regarding this report, please contact the number below. ??For patients who have questions please contact the health managed care liaison that requested your imaging first. ? Narrative 10/10/2023 10:37 AM EDT EXAMINATION: XR SHUNT SERIES CLINICAL HISTORY: postop left V-pleural shunt placement (as entered by ordering provider in the order requisition) TECHNIQUE: AP and lateral views of the skull. ??AP and lateral views the chest. AP and lateral views of the abdomen. COMPARISON: Shunt series October 05, 2023. ??CT of the head October 09, 2023. FINDINGS: There is a left parietal approach ventriculopleural shunt catheter with expected lucent component limits evaluation of the shunt valve. ??The catheter courses along the soft tissues of the left neck. ??The distal tip appears to project over the anteromedial aspect along its surface of the left hemidiaphragm. ??The distal segment of the catheter is seen without discontinuity up to the level of the lateral left 5th rib on the AP projection, but there is a short segment between the left 3rd and 5th ribs which is not well-visualized on either of the AP or lateral projections. There are orphaned catheter fragments projecting over the soft tissues of the lower right neck and right chest. ?? Surgical clips project over the right upper abdomen and left lower abdomen. ??No dilated loops of bowel. Bilateral lungs are clear. Procedure Note Eulalio, Aria Gilmore MD - 10/10/2023 EXAMINATION: XR SHUNT SERIES CLINICAL HISTORY: postop left V-pleural shunt placement (as entered byordering provider in the order requisition) TECHNIQUE: AP and lateral views of the skull. AP and lateral views the chest. AP and lateral views of the abdomen. COMPARISON: Shunt series October 05, 2023. CT of the head October 09, 2023. FINDINGS: There is a left parietal approach ventriculopleural shunt catheter withexpected lucent component limits evaluation of the shunt valve. The cathetercourses along the soft tissues of the left neck. The distal tip appears toproject over the anteromedial aspect along its surface of the left hemidiaphragm. Thedistal segment of the catheter is seen without discontinuity up to the level ofthe lateral left 5th rib on the AP projection, but there is a short segmentbetween the left 3rd and 5th ribs which is not well-visualized on either of the APor lateral projections. There are orphaned catheter fragments projecting over the soft tissues ofthe lower right neck and right chest. Surgical clips project over the right upper abdomen and left lowerabdomen. No dilated loops of bowel. Bilateral lungs are clear. IMPRESSION Left parietal approach ventriculoperitoneal shunt catheter. Thevisualized segments of this catheter show no discontinuity. However, there is ashort segments between the left 3rd and 5th ribs which is not well-visualizedon either the AP or lateral projections, and therefore this segment of thecatheter is not completely evaluated. Repeat radiographs with oblique views of thechest or a CT of the chest could be considered if there is concern for shuntcatheter discontinuity or malfunction. Thank you for letting us participate in the care of this patient. If youare a health care provider and have any questions regarding this report,please contact the number below. For patients who have questions please contactthe health managed care liaison that requested your imaging first. Rhoda Jimenez MD IMG DX ORDERABLES * CT Head wo Contrast (Generic) (10/09/2023 6:39 PM EDT) WORKSTATION ID [id number] RAD Anatomical Region Laterality Modality Head Computed Tomogra phy Impressions 10/10/2023 8:59 AM EDT 1. ??Decreased ventricular caliber status post placement of new left approach ventricular catheter. 2. ??Unchanged small superior right frontal hemorrhage and surrounding vasogenic edema at site of prior right sided catheter. Thank you for letting us participate in the care of this patient. ??If you are a health care provider and have any questions regarding this report, please contact the number below. ??For patients who have questions please contact the health managed care liaison that requested your imaging first. ? Electronically signed by: Chapin Peacock MD, [facility] ([phone]), at 10/10/2023 8:59 AM Narrative 10/10/2023 8:59 AM EDT EXAMINATION: CT HEAD WO CONTRAST (GENERIC) CLINICAL HISTORY: postop left V-pleural shunt placement TECHNIQUE: CT head performed without intravenous contrast administration. COMPARISON: Head CT 10/08/2023 FINDINGS: Status post removal of right approach ventricular catheter. Interval placement of a posterior left approach ventricular catheter with tip just anterior and above the foramen of Girish within the ventricular system. Small quantity of intracranial pneumocephalus. Decreased size of the ventricular system. Basal cisterns are patent. No mass effect or midline shift. Unchanged size of 15 mm focal hemorrhage within the superior right frontal lobe subcortical white matter (series 2 image 13), with unchanged surrounding vasogenic edema. This finding is along the tract of the prior catheter. No new areas of acute intracranial hemorrhage. No extra-axial collections. Unchanged low-attenuation within the right parietal lobe, likely sequela of prior catheter. Aforementioned vasogenic edema in the superior right frontal lobe. Unchanged low-attenuation within the right genu corpus callosum. Angel matter white matter differentiation is otherwise well preserved, no evidence of acute cortical infarction. The orbits are unremarkable. The visualized paranasal sinuses are clear. Trace fluid within the posterior medial right mastoid air cells. The left dog food shredder operator cells are clear. The middle ears are clear. Bilateral superior frontal gala holes in right parietal gala hole in 2 locations. Status post right middle cranial fossa craniotomy. New left parietal gala hole at the location of the catheter. Skin isabella are present along the right frontal scalp. Small amount of soft tissue edema along left parietal scalp consistent with postoperative change. Procedure Note Chapin Peacock MD - 10/10/2023 EXAMINATION: CT HEAD WO CONTRAST (GENERIC) CLINICAL HISTORY: postop left V-pleural shunt placement TECHNIQUE: CT head performed without intravenous contrast administration. COMPARISON: Head CT 10/08/2023 FINDINGS: Status post removal of right approach ventricular catheter. Intervalplacement of a posterior left approach ventricular catheter with tip just anteriorand above the foramen of Girish within the ventricular system. Small quantity of intracranial pneumocephalus. Decreased size of theventricular system. Basal cisterns are patent. No mass effect or midline shift. Unchanged size of 15 mm focal hemorrhage within the superior right frontallobe subcortical white matter (series 2 image 13), with unchanged surrounding vasogenic edema. This finding is along the tract of the prior catheter. Nonew areas of acute intracranial hemorrhage. No extra-axial collections. Unchanged low-attenuation within the right parietal lobe, likely sequelaof prior catheter. Aforementioned vasogenic edema in the superior rightfrontal lobe. Unchanged low-attenuation within the right genu corpus callosum.Angel matter white matter differentiation is otherwise well preserved, noevidence of acute cortical infarction. The orbits are unremarkable. The visualized paranasal sinuses are clear.Trace fluid within the posterior medial right mastoid air cells. The leftmasticator cells are clear. The middle ears are clear. Bilateral superior frontalburr holes in right parietal gala hole in 2 locations. Status post rightmiddle cranial fossa craniotomy. New left parietal gala hole at the location ofthe catheter. Skin isabella are present along the right frontal scalp. Smallamount of soft tissue edema along left parietal scalp consistent withpostoperative change. IMPRESSION 1. Decreased ventricular caliber status post placement of new leftapproach ventricular catheter. 2. Unchanged small superior right frontal hemorrhage and surroundingvasogenic edema at site of prior right sided catheter. Thank you for letting us participate in the care of this patient. If youare a health care provider and have any questions regarding this report,please contact the number below. For patients who have questions please contactthe health managed care liaison that requested your imaging first. Electronically signed by: Chapin Peacock MD, [facility]([phone]), at 10/10/2023 8:59 AM Rhoda Jimenez MD IMG CT ORDERABLES * ABORH RECHECK (PATIENT HISTORY FOUND) (10/09/2023 6:50 AM EDT) Pathologist [facility] ABOR Recheck Progress Complete 10/09/2023 9:01 AM EDT [facility] Blood VENOUS BLOOD SPECIMEN / Unknown IP Care Team Draw / Unknown 10/09/2023 6:50 AM EDT 10/09/2023 7:09 AM EDT Rhoda Jimenez MD BLOOD BANK LAB ORDER [facility] [place] [address] * [place] and screen [place] (10/09/2023 6:50 AM EDT) Pathologist [facility] ABOR Type A POSITIVE 10/09/2023 8:52 AM EDT [facility] PATIENT HISTORY Found 10/09/2023 8:52 AM EDT [facility] Expires at [id number] on: 10/12/2023 10/09/2023 8:52 AM EDT [facility] ANTIBODY SCREEN AUTOMATED Negative 10/09/2023 8:52 AM EDT [facility] T&S only valid at [facility] 10/09/2023 8:52 AM EDT [facility] Blood VENOUS BLOOD SPECIMEN / Unknown IP Care Team Draw / Unknown 10/09/2023 6:50 AM EDT 10/09/2023 7:09 AM EDT Narrative [facility] - 10/09/2023 8:52 AM EDT This Type and Screen result is only valid at the [facility] Rhoda Jimenez MD BLOOD BANK LAB ORDER [facility] [place] [address] * (ABNORMAL) CBC (with Diff) (10/09/2023 5:13 AM EDT) White Blood Cell 11.19(H) 4.00 - 9.50 x10(3)/mc L 10/09/2023 5:44 AM EDT [facility] Red Blood Cell 5.26 4.58 - 5.54 x10(6)/mc L 10/09/2023 5:44 AM [facility] Hemoglobin 15.2 13.7 - 16.5 g/dL 10/09/2023 5:44 AM [facility] Hematocrit 44.8 40.5 - 48.5 % 10/09/2023 5:44 AM [facility] Mean Cell Volume 85.2 82.9 - 93.1 fL 10/09/2023 5:44 AM [facility] Mean Cell Hemoglobin 28.9 27.5 - 32.1 pg 10/09/2023 5:44 AM [facility] Mean Cell Hemoglobin Concentration 33.9 32.0 - 35.7 g/dL 10/09/2023 5:44 AM [facility] Platelet 265 145 - 357 x10(3)/mc L [facility] Mean Platelet Volume 8.6 7.6 - 12.9 fL 10/09/2023 5:44 AM [facility] RDW Standard Deviation 40.2 36.0 - 45.0 fL 10/09/2023 5:44 AM [facility] RDW coefficient of variation 12.9 11.4 - 13.8 % 10/09/2023 5:44 AM [facility] NRBC% auto 0.0 % 10/09/2023 5:44 AM [facility] NRBC Absolute 0.00 0.00 - 0.00 x10(3)/mc L 10/09/2023 5:44 AM [facility] Neutrophil % 57.0 % 10/09/2023 5:44 AM [facility] Neutrophil Absolute (ANC) - Automated 6.38(H) 1.70 - 6.10 x10(3)/mc L 10/09/2023 5:44 AM [facility] Lymph % 34.6 % 10/09/2023 5:44 AM [facility] Lymph Absolute 3.87(H) 0.90 - 3.20 x10(3)/mc L 10/09/2023 5:44 AM [facility] Monocyte % 5.0 % 10/09/2023 5:44 AM [facility] Monocyte Absolute 0.56 0.30 - 0.90 x10(3)/mc L 10/09/2023 5:44 AM [facility] Eos % 2.6 % 10/09/2023 5:44 AM [facility] Eos Absolute 0.29 0.00 - 0.40 x10(3)/mc L 10/09/2023 5:44 AM [facility] Basophil % 0.5 % 10/09/2023 5:44 AM [facility] Baso Absolute 0.06 0.00 - 0.10 x10(3)/mc L 10/09/2023 5:44 AM [facility] Immature Gran % 0.3 % 5:44 AM [facility] Immature Gran Absolute 0.03 0.00 - 0.04 x10(3)/mc L 10/09/2023 5:44 AM [facility] Blood VENOUS BLOOD SPECIMEN / Unknown IP Care Team Draw / Unknown 10/09/2023 5:13 AM EDT 10/09/2023 5:23 AM EDT Rhoda Jimenez MD HEMATOLOGY ORDERABLE S [facility] [place] [address] * (ABNORMAL) Basic Metabolic Panel (10/09/2023 5:13 AM EDT) Glucose 122 65 - 199 mg/dL 10/09/2023 6:04 AM [facility] Comment:Glucose Concentratio n >=200 mg/dL plus symptoms is consistent with Diabetes Mellitus. Blood Urea Nitrogen 14 10 - 20 mg/dL 10/09/2023 6:04 AM [facility] Creatinine 1.08 0.80 - 1.50 mg/dL 10/09/2023 6:04 AM [facility] Sodium 136 135 - 145 mMol/L 10/09/2023 6:04 AM [facility] Potassium 4.1 3.5 - 5.0 mMol/L 10/09/2023 6:04 AM [facility] Chloride 105 98 - 107 mMol/L 10/09/2023 6:04 AM [facility] Carbon Dioxide 18(L) 22 - 31 mMol/L 10/09/2023 6:04 AM [facility] Anion Gap 13 5 - 15 mMol/L 10/09/2023 6:04 AM [facility] Calcium 9.0 8.5 - 10.5 mg/dL 10/09/2023 6:04 AM [facility] Est Glomerular Filtration Rate - Male 84 mL/min/1. 73 m?? 10/09/2023 6:04 AM EDT [facility] Comment: This patient's estimated GFR was [...] Unknown IP Care Team Draw / Unknown 10/09/2023 5:13 AM EDT 10/09/2023 5:23 AM EDT Rhoda Jimenez MD CHEMISTRY ORDERABLES Performing Organization Address City/[facility] Co de Phone Number [facility] [place] [address] * APTT (10/09/2023 5:13 AM EDT) Partial Thromboplastin Time 29 25 - 37 sec 10/09/2023 5:46 AM EDT [facility] Comment: The PTT is NOT appropriate for heparin monitoring. Use the Anti-Xa level for heparin monitoring (HEP UFH) or LMWH monitoring (HEP LMW). A PTT less than 37 seconds generally indicates adequate hemostasis. Blood VENOUS BLOOD SPECIMEN / Unknown IP Care Team Draw / Unknown 10/09/2023 5:13 AM EDT 10/09/2023 5:23 AM EDT Rhoda Jimenez MD HEMATOLOGY ORDERABLE S [facility] [place] [address] * Prothrombin Time (10/09/2023 5:13 AM EDT) Prothrombin Time 11.6 9.4 - 12.5 sec 10/09/2023 5:46 AM EDT [facility] International Normalization Ratio 1.0 <=4.9 10/09/2023 5:46 AM EDT [facility] Comment: An INR < 2.0 indicates adequate procoagulant activity for hemostasis in most patients without underlying bleeding disorders, though the INR may not adequately reflect hemostatic capacity in patients with liver disease and synthetic impairment. The recommended target INR range for therapeutic anticoagulation is 2.0 - 3.0 for most applications, though lower and higher ranges may be appropriate depending on clinical circumstances. Blood VENOUS BLOOD SPECIMEN / Unknown IP Care Team Draw / Unknown 10/09/2023 5:13 AM EDT 10/09/2023 5:23 AM EDT Rhoda Jimenez MD HEMATOLOGY ORDERABLE S [facility] [place] [address] * Scan Doc: Implantable Devices (10/09/2023 12:00 AM EDT) Narrative 10/09/2023 12:00 AM EDT Ordered by an unspecified provider. Scanning Provider MEDIA MGR SCAN EXT O RDR/RSLT * CT Head wo Contrast (Generic) (10/08/2023 4:09 AM EDT) WORKSTATION ID [id number] RAD Anatomical Region Laterality Modality Head Computed Tomogra phy Impressions 10/08/2023 6:17 AM EDT Interval increase size of the mildly dilated lateral and third ventricles with right frontal approach EVD in place. Stability of the right frontal lobe hemorrhage and edema around the EVD. Thank you for letting us participate in the care of this patient. ??If you are a health care provider and have any questions regarding this report, please contact the number below. ??For patients who have questions please contact the health managed care liaison that requested your imaging first. ? Electronically signed by: HAIM Marquez [facility] ([phone]), at 10/08/2023 6:17 AM Narrative 10/08/2023 6:17 AM EDT EXAMINATION: CT HEAD WO CONTRAST (GENERIC) CLINICAL HISTORY: Vps preop, For stealth TECHNIQUE: ??CT images of the head were acquired without intravenous contrast. COMPARISON: CT head 10/04/2023. FINDINGS: Right frontal approach ventricular catheter with small amount of surrounding hemorrhage and edema is identified. Tip terminates in the anterior horn left lateral ventricle. Resolving pneumocephalus. Interval increase size of the mildly dilated lateral and third ventricles. Small amount of blood layers dependently within the occipital horns. No new hemorrhages. Clear paranasal sinuses and otomastoid spaces. Procedure Note Cl Sosa MD - 10/08/2023 EXAMINATION: CT HEAD WO CONTRAST (GENERIC) CLINICAL HISTORY: Vps preop, For stealth TECHNIQUE: CT images of the head were acquired without intravenouscontrast. COMPARISON: CT head 10/04/2023. FINDINGS: Right frontal approach ventricular catheter with small amount ofsurrounding hemorrhage and edema is identified. Tip terminates in the anterior hornleft lateral ventricle. Resolving pneumocephalus. Interval increase size ofthe mildly dilated lateral and third ventricles. Small amount of bloodlayers dependently within the occipital horns. No new hemorrhages. Clear paranasal sinuses and otomastoid spaces. IMPRESSION Interval increase size of the mildly dilated lateral and third ventricleswith right frontal approach EVD in place. Stability of the right frontal lobe hemorrhage and edema around the EVD. Thank you for letting us participate in the care of this patient. If youare a health care provider and have any questions regarding this report,please contact the number below. For patients who have questions please contactthe health managed care liaison that requested your imaging first. Electronically signed by: [facility]([phone]), at 10/08/2023 6:17 AM Rhoda Jimenez MD IMG CT ORDERABLES * (ABNORMAL) Basic Metabolic Panel (10/08/2023 1:15 AM EDT) Glucose 124 65 - 199 mg/dL 10/08/2023 1:55 AM [facility] Comment:Glucose Concentratio n >=200 mg/dL plus symptoms is consistent with Diabetes Mellitus. Blood Urea Nitrogen 14 10 - 20 mg/dL 10/08/2023 1:55 AM [facility] Creatinine 1.07 0.80 - 1.50 mg/dL 10/08/2023 1:55 AM [facility] Sodium 135 135 - 145 mMol/L 10/08/2023 1:55 AM [facility] Potassium 4.0 3.5 - 5.0 mMol/L 10/08/2023 1:55 AM [facility] Chloride 103 98 - 107 mMol/L 10/08/2023 1:55 AM [facility] Carbon Dioxide 18(L) 22 - 31 mMol/L 10/08/2023 1:55 AM [facility] Anion Gap 14 5 - 15 mMol/L 10/08/2023 1:55 AM [facility] Calcium 9.1 8.5 - 10.5 mg/dL 10/08/2023 1:55 AM [facility] Est Glomerular Filtration Rate - Male 85 mL/min/1. 73 m?? 10/08/2023 1:55 AM [facility] Comment: This patient's estimated GFR was [...] Unknown IP Care Team Draw / Unknown 10/08/2023 1:15 AM EDT 10/08/2023 1:26 AM EDT Rhoda Jimenez MD CHEMISTRY ORDERABLES [facility] [place] [address] * (ABNORMAL) CBC (with Diff) (10/07/2023 12:15 AM EDT) White Blood Cell 12.73(H) 4.00 - 9.50 x10(3)/mc L 10/07/2023 12:40 AM [facility] Red Blood Cell 4.89 4.58 - 5.54 x10(6)/mc L 10/07/2023 12:40 AM [facility] Hemoglobin 14.4 13.7 - 16.5 g/dL 10/07/2023 12:40 AM [facility] Hematocrit 42.1 40.5 - 48.5 % 10/07/2023 12:40 AM [facility] Mean Cell Volume 86.1 82.9 - 93.1 fL 10/07/2023 12:40 AM [facility] Mean Cell Hemoglobin 29.4 27.5 - 32.1 pg 10/07/2023 12:40 AM [facility] Mean Cell Hemoglobin Concentration 34.2 32.0 - 35.7 g/dL 10/07/2023 12:40 AM [facility] Platelet 250 145 - 357 x10(3)/mc L 10/07/2023 12:40 AM [facility] Mean Platelet Volume 8.8 7.6 - 12.9 fL 10/07/2023 12:40 AM [facility] RDW Standard Deviation 40.5 36.0 - 45.0 fL 10/07/2023 12:40 AM [facility] RDW coefficient of variation 12.9 11.4 - 13.8 % 10/07/2023 12:40 AM [facility] NRBC% auto 0.0 % 10/07/2023 12:40 AM [facility] NRBC Absolute 0.00 0.00 - 0.00 x10(3)/mc L 10/07/2023 12:40 AM [facility] Neutrophil % 61.9 % 10/07/2023 12:40 AM [facility] Neutrophil Absolute (ANC) - Automated 7.87(H) 1.70 - 6.10 x10(3)/mc L 10/07/2023 12:40 AM [facility] Lymph % 30.5 % 10/07/2023 12:40 AM [facility] Lymph Absolute 3.88(H) 0.90 - 3.20 x10(3)/mc L 10/07/2023 12:40 AM [facility] Monocyte % 4.9 % 10/07/2023 12:40 AM [facility] Monocyte Absolute 0.63 0.30 - 0.90 x10(3)/mc L 10/07/2023 12:40 AM [facility] Eos % 1.8 % 10/07/2023 12:40 AM [facility] Eos Absolute 0.23 0.00 - 0.40 x10(3)/mc L 10/07/2023 12:40 AM [facility] Basophil % 0.6 % 10/07/2023 12:40 AM [facility] Baso Absolute 0.08 0.00 - 0.10 x10(3)/mc L 10/07/2023 12:40 AM [facility] Immature Gran % 0.3 % 12:40 AM [facility] Immature Gran Absolute 0.04 0.00 - 0.04 x10(3)/mc L 10/07/2023 12:40 AM EDT [facility] Blood VENOUS BLOOD SPECIMEN / Unknown IP Care Team Draw / Unknown 10/07/2023 12:15 AM EDT 10/07/2023 12:32 AM EDT Rhoda Jimenez MD HEMATOLOGY ORDERABLE S [facility] [place] [address] * (ABNORMAL) Basic Metabolic Panel (10/07/2023 12:15 AM EDT) Glucose 121 65 - 199 mg/dL 10/07/2023 1:04 AM [facility] Comment:Glucose Concentratio n >=200 mg/dL plus symptoms is consistent with Diabetes Mellitus. Blood Urea Nitrogen 15 10 - 20 mg/dL 10/07/2023 1:04 AM [facility] Creatinine 1.16 0.80 - 1.50 mg/dL 10/07/2023 1:04 AM [facility] Sodium 138 135 - 145 mMol/L 10/07/2023 1:04 AM [facility] Potassium 4.0 3.5 - 5.0 mMol/L 10/07/2023 1:04 AM [facility] Chloride 106 98 - 107 mMol/L 10/07/2023 1:04 AM [facility] Carbon Dioxide 18(L) 22 - 31 mMol/L 10/07/2023 1:04 AM [facility] Anion Gap 14 5 - 15 mMol/L 10/07/2023 1:04 AM [facility] Calcium 9.4 8.5 - 10.5 mg/dL 10/07/2023 1:04 AM [facility] Est Glomerular Filtration Rate - Male 77 mL/min/1. 73 m?? 10/07/2023 1:04 AM [facility] Comment: This patient's estimated GFR was [...] Unknown IP Care Team Draw / Unknown 10/07/2023 12:15 AM EDT 10/07/2023 12:32 AM EDT Rhoda Jimenez MD CHEMISTRY ORDERABLES Performing Organization Address City/[facility]/ZIP Co de Phone Number [facility] [place] [address] * Sedimentation rate (10/06/2023 8:46 AM EDT) Sedimentation Rate Automated 36 2 - 37 mm/hr 10/06/2023 10:51 AM EDT [facility] Blood VENOUS BLOOD SPECIMEN / Unknown IP Care Team Draw / Unknown 10/06/2023 8:46 AM EDT 10/06/2023 9:00 AM EDT Rhoda Jimenez MD HEMATOLOGY ORDERABLE S [facility] [place] [address] * (ABNORMAL) Basic Metabolic Panel (10/06/2023 8:46 AM EDT) Glucose 164 65 - 199 mg/dL 10/06/2023 9:32 AM EDT [facility] Comment:Glucose Concentratio n >=200 mg/dL plus symptoms is consistent with Diabetes Mellitus. Blood Urea Nitrogen 14 10 - 20 mg/dL 10/06/2023 9:32 AM EDT [facility] Creatinine 1.08 0.80 - 1.50 mg/dL 10/06/2023 9:32 AM [facility] Sodium 137 135 - 145 mMol/L 10/06/2023 9:32 AM [facility] Potassium 3.6 3.5 - 5.0 mMol/L 10/06/2023 9:32 AM [facility] Chloride 104 98 - 107 mMol/L 10/06/2023 9:32 AM [facility] Carbon Dioxide 19(L) 22 - 31 mMol/L 10/06/2023 9:32 AM [facility] Anion Gap 14 5 - 15 mMol/L 10/06/2023 9:32 AM [facility] Calcium 9.6 8.5 - 10.5 mg/dL 10/06/2023 9:32 AM [facility] Est Glomerular Filtration Rate - Male 84 mL/min/1. 73 m?? 10/06/2023 9:32 AM [facility] Comment: This patient's estimated GFR was [...] Unknown IP Care Team Draw / Unknown 10/06/2023 8:46 AM EDT 10/06/2023 9:00 AM EDT Rhoda Jimenez MD CHEMISTRY ORDERABLES [facility] [place] [address] * (ABNORMAL) CRP, acute inflammation (10/05/2023 8:16 PM EDT) Pathologist [facility] C-Reactive Protein 11.4(H) <=4.9 mg/L 10/06/2023 7:59 AM EDT [facility] Blood VENOUS BLOOD SPECIMEN / Unknown IP Care Team Draw / Unknown 10/05/2023 8:16 PM EDT 10/05/2023 8:22 PM EDT Rhoda Jimenez MD CHEMISTRY ORDERABLES [facility] [place] [address] * (ABNORMAL) Basic Metabolic Panel (10/05/2023 8:16 PM EDT) [facility] Glucose 140 65 - 199 mg/dL 10/05/2023 9:38 PM EDT [facility] Comment:Glucose Concentratio n >=200 mg/dL plus symptoms is consistent with Diabetes Mellitus. Blood Urea Nitrogen 15 10 - 20 mg/dL 10/05/2023 9:38 PM EDT [facility] Creatinine 1.10 0.80 - 1.50 mg/dL 10/05/2023 9:38 PM EDT [facility] Sodium 139 135 - 145 mMol/L 10/05/2023 9:38 PM EDT [facility] Potassium 3.4(L) 3.5 - 5.0 mMol/L 10/05/2023 9:38 PM EDT [facility] Chloride 105 98 - 107 mMol/L 10/05/2023 9:38 PM EDT [facility] Carbon Dioxide 19(L) 22 - 31 mMol/L 10/05/2023 9:38 PM EDT [facility] Anion Gap 15 5 - 15 mMol/L 10/05/2023 9:38 PM EDT [facility] Calcium 9.4 8.5 - 10.5 mg/dL 10/05/2023 9:38 PM EDT [facility] Est Glomerular Filtration Rate - Male 82 mL/min/1. 73 m?? 10/05/2023 9:38 PM EDT [facility] Comment: This patient's estimated GFR was [...] Unknown IP Care Team Draw / Unknown 10/05/2023 8:16 PM EDT 10/05/2023 8:22 PM EDT Rhoda Jimenez MD CHEMISTRY ORDERABLES [facility] [place] [address] * XR Shunt Series (10/05/2023 9:43 AM EDT) [employer] [place] Signature WORKSTATION ID [id number] RAD Anatomical Region Laterality Modality N/A Digital Radiogra phy Impressions 10/05/2023 10:15 AM EDT New Right EVD placement. Thank you for letting us participate in the care of this patient. ??If you are a health care provider and have any questions regarding this report, please contact the number below. ??For patients who have questions please contact the health managed care liaison that requested your imaging first. ? Narrative 10/05/2023 10:15 AM EDT EXAMINATION: XR SHUNT SERIES CLINICAL HISTORY: preop planning s/p shunt explantation TECHNIQUE: AP and lateral views of the skull, chest, abdomen. COMPARISON: CT head 10/04/2023. Radiographs 09/23/2023. FINDINGS: Previously present right ventriculostomy catheter has been explanted with abandoned catheters in chest. ??Right frontal approach EVD catheter with the tip terminating in the midline. ??Soft tissue swelling and surgical clips in the scalp. The included lungs are clear. ??Nonspecific bowel gas pattern. ??No acute osseous finding. Procedure Note Kraig Rizvi MD - 10/05/2023 EXAMINATION: XR SHUNT SERIES CLINICAL HISTORY: preop planning s/p shunt explantation TECHNIQUE: AP and lateral views of the skull, chest, abdomen. COMPARISON: CT head 10/04/2023. Radiographs 09/23/2023. FINDINGS: Previously present right ventriculostomy catheter has been explantedwith abandoned catheters in chest. Right frontal approach EVD catheter withthe tip terminating in the midline. Soft tissue swelling and surgical clips inthe scalp. The included lungs are clear. Nonspecific bowel gas pattern. No acuteosseous finding. IMPRESSION New Right EVD placement. Thank you for letting us participate in the care of this patient. If youare a health care provider and have any questions regarding this report,please contact the number below. For patients who have questions please contactthe health managed care liaison that requested your imaging first. Rhoda Jimenez MD IMG DX ORDERABLES * (ABNORMAL) Basic Metabolic Panel (10/05/2023 8:17 AM EDT) Glucose 160 65 - 199 mg/dL 10/05/2023 8:59 AM EDT [facility] Comment:Glucose Concentratio n >=200 mg/dL plus symptoms is consistent with Diabetes Mellitus. Blood Urea Nitrogen 16 10 - 20 mg/dL 10/05/2023 8:59 AM [facility] Creatinine 1.02 0.80 - 1.50 mg/dL 10/05/2023 8:59 AM [facility] Sodium 135 135 - 145 mMol/L 10/05/2023 8:59 AM [facility] Potassium 3.5 3.5 - 5.0 mMol/L 10/05/2023 8:59 AM [facility] Chloride 101 98 - 107 mMol/L 10/05/2023 8:59 AM [facility] Carbon Dioxide 19(L) 22 - 31 mMol/L 10/05/2023 8:59 AM [facility] Anion Gap 15 5 - 15 mMol/L 10/05/2023 8:59 AM [facility] Calcium 9.7 8.5 - 10.5 mg/dL 10/05/2023 8:59 AM [facility] Est Glomerular Filtration Rate - Male 90 mL/min/1. 73 m?? 10/05/2023 8:59 AM [facility] Comment: This patient's estimated GFR was [...] Unknown IP Care Team Draw / Unknown 10/05/2023 8:17 AM EDT 10/05/2023 8:22 AM EDT Rhoda Jimenez MD CHEMISTRY ORDERABLES [facility] [place] [address] * Vancomycin, trough (10/05/2023 4:30 AM EDT) Pathologist [facility] Vancomycin, Trough 17.4 10.0 - 20.0 mg/L 10/05/2023 9:40 AM EDT [facility] Comment: Varies according to infection source. Blood VENOUS BLOOD SPECIMEN / Unknown IP Care Team Draw / Unknown 10/05/2023 4:30 AM EDT 10/05/2023 7:28 AM EDT Rhoda Jimenez MD CHEMISTRY ORDERABLES [facility] [place] [address] * (ABNORMAL) CBC (with Diff) (10/05/2023 12:25 AM EDT) [facility] White Blood Cell 12.42(H) 4.00 - 9.50 x10(3)/mc L 10/05/2023 12:56 AM EDT [facility] Red Blood Cell 5.12 4.58 - 5.54 x10(6)/mc L 10/05/2023 12:56 AM EDT [facility] Hemoglobin 15.0 13.7 - 16.5 g/dL 10/05/2023 12:56 AM [facility] Hematocrit 43.5 40.5 - 48.5 % 10/05/2023 12:56 AM EDT [facility] Mean Cell Volume 85.0 82.9 - 93.1 fL 10/05/2023 12:56 AM [facility] Mean Cell Hemoglobin 29.3 27.5 - 32.1 pg 10/05/2023 12:[facility] Cell Hemoglobin Concentration 34.5 32.0 - 35.7 g/dL 10/05/2023 12:56 [facility] Platelet 249 145 - 357 x10(3)/mc L 10/05/2023 12:56 AM EDT [facility] Mean Platelet Volume 8.8 7.6 - 12.9 fL 10/05/2023 12:56 AM [facility] RDW Standard Deviation 39.7 36.0 - 45.0 fL 10/05/2023 12:56 AM [facility] RDW coefficient of variation 12.8 11.4 - 13.8 % 10/05/2023 12:56 AM [facility] NRBC% auto 0.0 % 10/05/2023 12:56 AM [facility] NRBC Absolute 0.00 0.00 - 0.00 x10(3)/mc L 10/05/2023 12:56 AM [facility] Neutrophil % 59.9 % 10/05/2023 12:56 AM [facility] Neutrophil Absolute (ANC) - Automated 7.44(H) 1.70 - 6.10 x10(3)/mc L 10/05/2023 12:56 AM [facility] Lymph % 32.0 % 10/05/2023 12:56 AM [facility] Lymph Absolute 3.97(H) 0.90 - 3.20 x10(3)/mc L 10/05/2023 12:56 AM [facility] Monocyte % 5.9 % 10/05/2023 12:56 AM [facility] Monocyte Absolute 0.73 0.30 - 0.90 x10(3)/mc L 10/05/2023 12:56 AM [facility] Eos % 1.5 % 10/05/2023 12:56 AM [facility] Eos Absolute 0.19 0.00 - 0.40 x10(3)/mc L 10/05/2023 12:56 AM [facility] Basophil % 0.5 % 10/05/2023 12:56 AM [facility] Baso Absolute 0.06 0.00 - 0.10 x10(3)/mc L 10/05/2023 12:56 AM EDT [facility] Immature Gran % 0.2 % 12:56 AM EDT [facility] Immature Gran Absolute 0.03 0.00 - 0.04 x10(3)/mc L 10/05/2023 12:56 AM EDT [facility] Blood VENOUS BLOOD SPECIMEN / Unknown IP Care Team Draw / Unknown 10/05/2023 12:25 AM EDT 10/05/2023 12:49 AM EDT Rhoda Jimenez MD HEMATOLOGY ORDERABLE S [facility] [place] [address] * (ABNORMAL) Basic Metabolic Panel (10/04/2023 8:16 PM EDT) Glucose 152 65 - 199 mg/dL 10/04/2023 9:11 PM EDT [facility] Comment:Glucose Concentratio n >=200 mg/dL plus symptoms is consistent with Diabetes Mellitus. Blood Urea Nitrogen 18 10 - 20 mg/dL 10/04/2023 9:11 PM EDT [facility] Creatinine 1.02 0.80 - 1.50 mg/dL 10/04/2023 9:11 PM EDT [facility] Sodium 135 135 - 145 mMol/L 10/04/2023 9:11 PM EDT [facility] Potassium 3.3(L) 3.5 - 5.0 mMol/L 10/04/2023 9:11 PM EDT [facility] Chloride 101 98 - 107 mMol/L 10/04/2023 9:11 PM EDT [facility] Carbon Dioxide 19(L) 22 - 31 mMol/L 10/04/2023 9:11 PM EDT [facility] Anion Gap 15 5 - 15 mMol/L 10/04/2023 9:11 PM EDT [facility] Calcium 9.6 8.5 - 10.5 mg/dL 10/04/2023 9:11 PM EDT [facility] Est Glomerular Filtration Rate - Male 90 mL/min/1. 73 m?? 10/04/2023 9:11 PM EDT [facility] Comment: This patient's estimated GFR was [...] Unknown IP Care Team Draw / Unknown 10/04/2023 8:16 PM EDT 10/04/2023 8:36 PM EDT Rhoda Jimenez MD CHEMISTRY ORDERABLES [facility] [place] [address] * Sodium, urine, random (10/04/2023 9:34 AM EDT) Sodium, Urine 22 mMol/L 10/04/2023 7:59 PM EDT [facility] Urine URINE SPECIMEN / Unknown Non Blood Collection / Unknown 10/04/2023 9:34 AM EDT 10/04/2023 9:43 AM EDT Rhoda Jimenez MD URINE ORDERABLES [facility] [place] [address] * Osmolality, urine, random (10/04/2023 9:34 AM EDT) Osmolality, Urine 798 50 - 1,200 mOsm/kg 10/04/2023 1:44 PM EDT [facility] Urine URINE SPECIMEN / Unknown Non Blood Collection / Unknown 10/04/2023 9:34 AM EDT 10/04/2023 9:43 AM EDT Rhoda Jimenez MD URINE ORDERABLES Performing Organization Address [facility]/[place] [address] * Creatinine, urine, random (10/04/2023 9:34 AM EDT) Creatinine, Urine 230 mg/dL 10/04/2023 10:12 AM EDT [facility] Urine URINE SPECIMEN / Unknown Non Blood Collection / Unknown 10/04/2023 9:34 AM EDT 10/04/2023 9:43 AM EDT Rhoda Jimenez MD URINE ORDERABLES Performing Organization Address [facility] Co de Phone Number [facility] [place] [address] * CT Head wo Contrast (Generic) (10/04/2023 5:05 AM EDT) WORKSTATION ID [id number] DH RAD Anatomical Region Laterality Modality Head Computed Tomogra phy Impressions 10/04/2023 9:13 AM EDT Stable parenchymal hemorrhage surrounding the frontal ventricular catheter. Decreased size of the ventricular system, as above. Thank you for letting us participate in the care of this patient. ??If you are a health care provider and have any questions regarding this report, please contact the number below. ??For patients who have questions please contact the health managed care liaison that requested your imaging first. ? Electronically signed by: Jackson Julse DO, [facility] ??([phone]), at 10/04/2023 9:13 AM Narrative 10/04/2023 9:13 AM EDT EXAMINATION: CT HEAD WO CONTRAST (GENERIC) CLINICAL HISTORY: f/u small tract hemorrhage from EVD, ventricular caliber TECHNIQUE: CT head performed without intravenous contrast administration. COMPARISON: Head CT 10/02/2023, 1447 hours and 1015 hours Findings: There is there is stable parenchymal hemorrhage along the proximal aspect of the right frontal ventricular catheter. The catheter is stable in position. There is similar pneumocephalus/pneumoventricle. Small volume intraventricular hemorrhage again noted in the third ventricle and left occipital horn. The ventricular system is decreased in size, and essentially symmetric with the exception of mild asymmetric distention of the right temporal horn. There is no new intracranial hemorrhage, acute confluent ischemic infarct or new mass effect. There is similar right frontal lobe edema. There are no additional significant interval findings. Procedure Note Jackson Jules DO - 10/04/2023 EXAMINATION: CT HEAD WO CONTRAST (GENERIC) CLINICAL HISTORY: f/u small tract hemorrhage from EVD, ventricularcaliber TECHNIQUE: CT head performed without intravenous contrast administration. COMPARISON: Head CT 10/02/2023, 1447 hours and 1015 hours Findings: There is there is stable parenchymal hemorrhage along the proximal aspectof the right frontal ventricular catheter. The catheter is stable in position.There is similar pneumocephalus/pneumoventricle. Small volume intraventricular hemorrhage again noted in the thirdventricle and left occipital horn. The ventricular system is decreased in size, and essentially symmetricwith the exception of mild asymmetric distention of the right temporal horn. There is no new intracranial hemorrhage, acute confluent ischemic infarctor new mass effect. There is similar right frontal lobe edema. There are no additional significant interval findings. IMPRESSION Stable parenchymal hemorrhage surrounding the frontal ventricularcatheter. Decreased size of the ventricular system, as above. Thank you for letting us participate in the care of this patient. If youare a health care provider and have any questions regarding this report,please contact the number below. For patients who have questions please contactthe health managed care liaison that requested your imaging first. Electronically signed by: Jackson Jules DO, [facility]([phone]), at 10/04/2023 9:13 AM Rhoda Jimenez MD IMG CT ORDERABLES * (ABNORMAL) Basic Metabolic Panel (10/03/2023 10:49 PM EDT) Glucose 112 65 - 199 mg/dL 10/04/2023 6:39 PM T [facility] Comment:Glucose Concentratio n >=200 mg/dL plus symptoms is consistent with Diabetes Mellitus. Blood Urea Nitrogen 17 10 - 20 mg/dL 10/04/2023 6:39 PM [facility] Creatinine 1.09 0.80 - 1.50 mg/dL 10/04/2023 6:39 PM [facility] Sodium 134(L) 135 - 145 mMol/L 10/04/2023 6:39 PM [facility] Potassium 4.2 3.5 - 5.0 mMol/L 10/04/2023 6:39 PM [facility] Chloride 100 98 - 107 mMol/L 10/04/2023 6:39 PM [facility] Carbon Dioxide 15(L) 22 - 31 mMol/L 10/04/2023 6:39 PM [facility] Anion Gap 19(H) 5 - 15 mMol/L 10/04/2023 6:39 PM [facility] Calcium 9.6 8.5 - 10.5 mg/dL 10/04/2023 6:39 PM [facility] Est Glomerular Filtration Rate - Male 83 mL/min/1. 73 m?? 10/04/2023 6:39 PM [facility] Comment: This patient's estimated GFR was [...] Unknown IP Care Team Draw / Unknown 10/03/2023 10:49 PM EDT 10/03/2023 10:55 PM EDT Rhoda Jimenez MD CHEMISTRY ORDERABLES [facility] [place] [address] * Osmolality (10/03/2023 10:49 PM EDT) Osmolality 285 275 - 295 mOsm/kg 10/04/2023 6:33 AM EDT [facility] Blood VENOUS BLOOD SPECIMEN / Unknown IP Care Team Draw / Unknown 10/03/2023 10:49 PM EDT 10/03/2023 10:55 PM EDT Rhoda Jimenez MD CHEMISTRY ORDERABLES Performing Organization Address City/[facility]/ZIP Co de Phone Number [facility] [place] [address] * Potassium (10/03/2023 10:49 PM EDT) Potassium 3.8 3.5 - 5.0 mMol/L 10/03/2023 11:18 PM EDT [facility] Blood VENOUS BLOOD SPECIMEN / Unknown IP Care Team Draw / Unknown 10/03/2023 10:49 PM EDT 10/03/2023 10:55 PM EDT Rhoda Jimenez MD CHEMISTRY ORDERABLES Performing Organization Address City/[facility]/ZIP Co de Phone Number [facility] [place] [address] * (ABNORMAL) Basic Metabolic Panel (10/03/2023 8:53 PM EDT) Glucose 132 65 - 199 mg/dL 10/03/2023 10:15 PM [facility] Comment:Glucose Concentratio n >=200 mg/dL plus symptoms is consistent with Diabetes Mellitus. Blood Urea Nitrogen 16 10 - 20 mg/dL 10/03/2023 10:15 PM [facility] Creatinine 0.99 0.80 - 1.50 mg/dL 10/03/2023 10:15 PM [facility] Sodium 131(L) 135 - 145 mMol/L 10/03/2023 10:15 PM [facility] Potassium 10/03/2023 10:15 PM [facility] Comment:Unable to report due to hemolysis. Chloride 100 98 - 107 mMol/L 10/03/2023 10:15 PM [facility] Carbon Dioxide 17(L) 22 - 31 mMol/L 10/03/2023 10:15 PM [facility] Anion Gap 14 5 - 15 mMol/L 10/03/2023 10:15 PM [facility] Calcium 9.0 8.5 - 10.5 mg/dL 10/03/2023 10:15 PM [facility] Est Glomerular Filtration Rate - Male 93 mL/min/1. 73 m?? 10/03/2023 10:15 PM [facility] Comment: This patient's estimated GFR was [...] Unknown IP Care Team Draw / Unknown 10/03/2023 8:53 PM EDT 10/03/2023 8:59 PM EDT Rhoda Jimenez MD CHEMISTRY ORDERABLES [facility] [place] [address] * (ABNORMAL) CBC (with Diff) (10/03/2023 4:13 AM EDT) White Blood Cell 13.41(H) 4.00 - 9.50 x10(3)/mc L 10/03/2023 4:23 AM EDT [facility] Red Blood Cell 5.55(H) 4.58 - 5.54 x10(6)/mc L 10/03/2023 4:23 AM EDT [facility] Hemoglobin 16.3 13.7 - 16.5 g/dL 10/03/2023 4:23 AM EDT [facility] Hematocrit 47.3 40.5 - 48.5 % 10/03/2023 4:23 AM EDT [facility] Mean Cell Volume 85.2 82.9 - 93.1 fL 10/03/2023 4:23 AM EDT [facility] Mean Cell Hemoglobin 29.4 27.5 - 32.1 pg 10/03/2023 4:23 AM T [facility] Mean Cell Hemoglobin Concentration 34.5 32.0 - 35.7 g/dL 10/03[facility]2023 4[facility] Platelet 239 145 - 357 x10(3)/mc L 10/03/2023 4:23 AM EDT [facility] Mean Platelet Volume 8.5 7.6 - 12.9 fL 10/03/2023 4:[facility] RDW Standard Deviation 40.3 36.0 - 45.0 fL 10/03/2023 4:23 AM [facility] RDW coefficient of variation 12.9 11.4 - 13.8 % 10/03/2023 4:23 AM [facility] NRBC% auto 0.0 % 10/03/2023 4:23 AM [facility] NRBC Absolute 0.00 0.00 - 0.00 x10(3)/mc L 10/03/2023 4:23 AM [facility] Neutrophil % 65.1 % 10/03/2023 4:23 AM [facility] Neutrophil Absolute (ANC) - Automated 8.73(H) 1.70 - 6.10 x10(3)/mc L 10/03/2023 4:23 AM [facility] Lymph % 26.1 % 10/03/2023 4:23 AM [facility] Lymph Absolute 3.50(H) 0.90 - 3.20 x10(3)/mc L 10/03/2023 4:23 AM [facility] Monocyte % 6.5 % 10/03/2023 4:23 AM [facility] Monocyte Absolute 0.87 0.30 - 0.90 x10(3)/mc L 10/03/2023 4:23 AM [facility] Eos % 1.4 % 10/03/2023 4:23 AM [facility] Eos Absolute 0.19 0.00 - 0.40 x10(3)/mc L 10/03/2023 4:23 AM [facility] Basophil % 0.5 % 10/03/2023 4:23 AM [facility] Baso Absolute 0.07 0.00 - 0.10 x10(3)/mc L 10/03/2023 4:23 AM [facility] Immature Gran % 0.4 % 4:23 AM [facility] Immature Gran Absolute 0.05(H) 0.00 - 0.04 x10(3)/mc L 10/03/2023 4:23 AM [facility] Blood VENOUS BLOOD SPECIMEN / Unknown IP Care Team Draw / Unknown 10/03/2023 4:13 AM EDT 10/03/2023 4:19 AM EDT Rhoda Jimenez MD HEMATOLOGY ORDERABLE S [facility] [place] [address] * (ABNORMAL) Basic Metabolic Panel (10/03/2023 4:13 AM EDT) Glucose 115 65 - 199 mg/dL 10/03/2023 4:49 AM EDT [facility] Comment:Glucose Concentratio n >=200 mg/dL plus symptoms is consistent with Diabetes Mellitus. Blood Urea Nitrogen 18 10 - 20 mg/dL 10/03/2023 4:49 AM [facility] Creatinine 1.07 0.80 - 1.50 mg/dL 10/03/2023 4:49 AM [facility] Sodium 132(L) 135 - 145 mMol/L 10/03/2023 4:49 AM [facility] Potassium 3.7 3.5 - 5.0 mMol/L 10/03/2023 4:49 AM [facility] Chloride 101 98 - 107 mMol/L 10/03/2023 4:49 AM [facility] Carbon Dioxide 19(L) 22 - 31 mMol/L 10/03/2023 4:49 AM [facility] Anion Gap 12 5 - 15 mMol/L 10/03/2023 4:49 AM [facility] Calcium 9.3 8.5 - 10.5 mg/dL 10/03/2023 4:49 AM [facility] Est Glomerular Filtration Rate - Male 85 mL/min/1. 73 m?? 10/03/2023 4:49 AM [facility] Comment: This patient's estimated GFR was [...] Unknown IP Care Team Draw / Unknown 10/03/2023 4:13 AM EDT 10/03/2023 4:19 AM EDT Rhoda Jimenez MD CHEMISTRY ORDERABLES [facility] [place] [address] * CT Head wo Contrast (Generic) (10/02/2023 2:48 PM EDT) [employer] WORKSTATION ID [id number] RAD Anatomical Region Laterality Modality Head Computed Tomogra phy Impressions 10/02/2023 2:58 PM EDT Interval right frontal EVD placement. There is a small amount of blood along the tract and in the third ventricle. Thank you for letting us participate in the care of this patient. ??If you are a health care provider and have any questions regarding this report, please contact the number below. ??For patients who have questions please contact the health managed care liaison that requested your imaging first. ? Narrative 10/02/2023 2:58 PM EDT EXAMINATION: CT HEAD WO CONTRAST (GENERIC) CLINICAL HISTORY: s/p R EVD re-placement TECHNIQUE: CT head performed without intravenous contrast administration. COMPARISON: 10/02/2023, 824, 09/24/2023 FINDINGS: Slight interval placement of the Right frontal EVD with its tip just across the midline. A small amount blood products are present in the right frontal lobe. The ventricles are similar to the most recent prior study. Small amount of hyperdense material is present at the inferior third ventricle, which represent small amount blood. There is no territorial infarct. Procedure Note Isac Rob MD - 10/02/2023 EXAMINATION: CT HEAD WO CONTRAST (GENERIC) CLINICAL HISTORY: s/p R EVD re-placement TECHNIQUE: CT head performed without intravenous contrast administration. COMPARISON: 10/02/2023, , 09/24/2023 FINDINGS: Slight interval placement of the Right frontal EVD with its tip just across the midline. A small amountblood products are present in the right frontal lobe. The ventricles are similarto the most recent prior study. Small amount of hyperdense material ispresent at the inferior third ventricle, which represent small amount blood. There isno territorial infarct. IMPRESSION Interval right frontal EVD placement. There is a small amount of bloodalong the tract and in the third ventricle. Thank you for letting us participate in the care of this patient. If youare a health care provider and have any questions regarding this report,please contact the number below. For patients who have questions please contactthe health managed care liaison that requested your imaging first. Rhoda Jimenez MD IMG CT ORDERABLES * CT Head wo Contrast (Generic) (10/02/2023 10:16 AM EDT) WORKSTATION ID [id number] RAD Anatomical Region Laterality Modality Head Computed Tomogra phy Impressions 10/02/2023 10:43 AM EDT 1. ??Interval retraction of EVD with tip now terminating in the RIGHT frontal lobe cortex. 2. ??Unchanged hydrocephalus. I Cy Ortega discussed the results with Roberto Anastaciagerson on 10/02/2023 10:28 AM and verified that the results were understood. Thank you for letting us participate in the care of this patient. ??If you are a health care provider and have any questions regarding this report, please contact the number below. ??For patients who have questions please contact the health managed care liaison that requested your imaging first. ? Narrative 10/02/2023 10:43 AM EDT EXAMINATION: CT HEAD WO CONTRAST (GENERIC) CLINICAL HISTORY: EVD placement confirmation TECHNIQUE: CT head performed without intravenous contrast administration. COMPARISON: Head CT at 824, 09/24/2023 FINDINGS: Interval retraction of external ventricular drain with tip terminating in the cortex of the RIGHT frontal lobe. There is unchanged mild dilatation of the lateral ventricles and periventricular hypoattenuation. White matter edema extending along the frontal approach ventriculostomy tract is unchanged. Surgical changes of RIGHT temporal craniotomy. No acute intracranial hemorrhage. No mass or mass effect. Mastoid air cells and paranasal sinuses are clear. No new calvarial defects. Procedure Note Cy Ortega MD - 10/02/2023 EXAMINATION: CT HEAD WO CONTRAST (GENERIC) CLINICAL HISTORY: EVD placement confirmation TECHNIQUE: CT head performed without intravenous contrast administration. COMPARISON: Head CT at 824, 09/24/2023 FINDINGS: Interval retraction of external ventricular drain with tip terminating inthe cortex of the RIGHT frontal lobe. There is unchanged mild dilatation ofthe lateral ventricles and periventricular hypoattenuation. White matteredema extending along the frontal approach ventriculostomy tract is unchanged. Surgical changes of RIGHT temporal craniotomy. No acute intracranialhemorrhage. No mass or mass effect. Mastoid air cells and paranasal sinuses are clear.No new calvarial defects. IMPRESSION 1. Interval retraction of EVD with tip now terminating in the RIGHTfrontal lobe cortex. 2. Unchanged hydrocephalus. I Cy Ortega discussed the results with Roberto Dsouza on 0:28 AM and verified that the results were understood. Thank you for letting us participate in the care of this patient. If youare a health care provider and have any questions regarding this report,please contact the number below. For patients who have questions please contactthe health managed care liaison that requested your imaging first. Rhoda Jimenez MD IMG CT ORDERABLES * CT Head wo Contrast (Generic) (10/01/2023 4:34 PM EDT) [employer] WORKSTATION ID [id number] RAD Anatomical Region Laterality Modality Head Computed Tomogra phy Impressions 10/01/2023 4:38 PM EDT Marked ventriculomegaly compared to previous studies. A small amount blood is present in the left lateral ventricle. Thank you for letting us participate in the care of this patient. ??If you are a health care provider and have any questions regarding this report, please contact the number below. ??For patients who have questions please contact the health managed care liaison that requested your imaging first. ? 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 COMPARISON: CT 09/24/2023, 09/23/2023, 07/02/2023, 06/16/2023 FINDINGS: There is marked dilation of the ventricles compared to the previous studies. Small amount blood layers dependently in the left occipital horn. There is low-attenuation around the right frontal ventricular catheter tract. There is evidence of transependymal resorption of CSF.. 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 COMPARISON: CT 09/24/2023, 09/23/2023, 07/02/2023, 06/16/2023 FINDINGS: There is marked dilation of the ventricles compared to the previousstudies. Small amount blood layers dependently in the left occipital horn. Thereis low-attenuation around the right frontal ventricular catheter tract. Thereis evidence of transependymal resorption of CSF.. IMPRESSION Marked ventriculomegaly compared to previous studies. A small amount bloodis present in the left lateral ventricle. Thank you for letting us participate in the care of this patient. If youare a health care provider and have any questions regarding this report,please contact the number below. For patients who have questions please contactthe health managed care liaison that requested your imaging first. Rhoda Jimenez MD IM CT ORDERABLES * (ABNORMAL) CBC (with Diff) (10/01/2023 5:38 AM EDT) White Blood Cell 10.65(H) 4.00 - 9.50 x10(3)/mc L 10/01/2023 7:37 AM EDT [facility] Red Blood Cell 5.96(H) 4.58 - 5.54 x10(6)/mc L 10/01/2023 7:37 AM [facility] Hemoglobin 17.4(H) 13.7 - 16.5 g/dL 10/01/2023 7:37 AM [facility] Hematocrit 51.0(H) 40.5 - 48.5 % 10/01/2023 7:37 AM [facility] Mean Cell Volume 85.6 82.9 - 93.1 fL 10/01/2023 7:37 AM [facility] Mean Cell Hemoglobin 29.2 27.5 - 32.1 pg 10/01/2023 7:37 AM [facility] Mean Cell Hemoglobin Concentration 34.1 32.0 - 35.7 g/dL 10/01/2023 7:37 AM [facility] Platelet 252 145 - 357 x10(3)/mc L 10/01/2023 7:37 AM [facility] Mean Platelet Volume 9.3 7.6 - 12.9 fL 10/01/2023 7:37 AM [facility] RDW Standard Deviation 41.4 36.0 - 45.0 fL 10/01/2023 7:37 AM [facility] RDW coefficient of variation 13.2 11.4 - 13.8 % 10/01/2023 7:37 AM [facility] NRBC% auto 0.0 % 10/01/2023 7:37 AM [facility] NRBC Absolute 0.00 0.00 - 0.00 x10(3)/mc L 10/01/2023 7:37 AM [facility] Neutrophil % 55.2 % 10/01/2023 7:37 AM [facility] Neutrophil Absolute (ANC) - Automated 5.89 1.70 - 6.10 x10(3)/mc L 10/01/2023 7:37 AM [facility] Lymph % 35.8 % 10/01/2023 7:37 AM EDT [facility] Lymph Absolute 3.81(H) 0.90 - 3.20 x10(3)/mc L 10/01/2023 7:37 AM EDT [facility] Monocyte % 6.1 % 10/01/2023 7:37 AM EDT [facility] Monocyte Absolute 0.65 0.30 - 0.90 x10(3)/mc L 10/01/2023 7:37 AM EDT [facility] Eos % 2.0 % 10/01/2023 7:37 AM EDT [facility] Eos Absolute 0.21 0.00 - 0.40 x10(3)/mc L 10/01/2023 7:37 AM EDT [facility] Basophil % 0.6 % 10/01/2023 7:37 AM EDT [facility] Baso Absolute 0.06 0.00 - 0.10 x10(3)/mc L 10/01/2023 7:37 AM EDT [facility] Immature Gran % 0.3 % 7:37 AM EDT [facility] Immature Gran Absolute 0.03 0.00 - 0.04 x10(3)/mc L 10/01/2023 7:37 AM EDT [facility] Blood VENOUS BLOOD SPECIMEN / Unknown IP Care Team Draw / Unknown 10/01/2023 5:38 AM EDT 10/01/2023 7:29 AM EDT Rhoda Jimenez MD HEMATOLOGY ORDERABLE S [facility] [place] [address] * (ABNORMAL) Basic Metabolic Panel (10/01/2023 5:38 AM EDT) Glucose 103 65 - 199 mg/dL 10/01/2023 8:18 AM EDT [facility] Comment:Glucose Concentratio n >=200 mg/dL plus symptoms is consistent with Diabetes Mellitus. Blood Urea Nitrogen 18 10 - 20 mg/dL 10/01/2023 8:18 AM [facility] Creatinine 1.08 0.80 - 1.50 mg/dL 10/01/2023 8:18 AM [facility] Sodium 134(L) 135 - 145 mMol/L 10/01/2023 8:18 AM [facility] Potassium 3.9 3.5 - 5.0 mMol/L 10/01/2023 8:18 AM [facility] Chloride 99 98 - 107 mMol/L 10/01/2023 8:18 AM [facility] Carbon Dioxide 21(L) 22 - 31 mMol/L 10/01/2023 8:18 AM [facility] Anion Gap 14 5 - 15 mMol/L 10/01/2023 8:18 AM [facility] Calcium 9.7 8.5 - 10.5 mg/dL 10/01/2023 8:18 AM [facility] Est Glomerular Filtration Rate - Male 84 mL/min/1. 73 m?? 10/01/2023 8:18 AM [facility] Comment: This patient's estimated GFR was [...] eGFR. Link: eGFR Calculator [employer] Fasting Status No 10/01/2023 8:18 AM [facility] Blood VENOUS BLOOD SPECIMEN / Unknown IP Care Team Draw / Unknown 10/01/2023 5:38 AM EDT 10/01/2023 7:29 AM EDT Rhoda Jimenez MD CHEMISTRY ORDERABLES Performing Organization Address [facility]/ZIP Co de Phone Number [facility] [place] [address] * Pathology Fluid Review (09/30/2023 1:19 PM EDT) Pathology Interpretation Inflammatory cells including increased eosinophils seen 10/01/2023 12:27 PM EDT [facility] Cerebrospinal Fluid VENTRICULAR SHUNT / Unknown Non Blood Collection / Unknown 09/30/2023 1:19 PM EDT 09/30/2023 1:26 PM EDT Narrative [facility] - 10/01/2023 12:27 PM EDT ++++ ?INTERNAL LABORATORY BODY FLUID REVIEW ?++++ A Sommer's stained smear of this ??fluid has been referred to a pathologist by the hematology laboratory for internal review. ??The review agreed with the results that have been reported on this patient's laboratory chart. ??THIS IS NOT A CYTOLOGY REPORT. Rhoda Jimenez MD BODY FLUIDS AND STOO LS ORDERABLES Performing Organization Address [facility] Co de Phone Number [facility] [place] [address] * TUBE TEST TECHNICIAN Shunt Culture (09/30/2023 1:19 PM EDT) Central Nervous System Shunt Culture No growth at 10 days 10/10/2023 10:01 AM EDT [facility] Gram Stain Cytocentrifuge Gram Stain performed 10/10/2023 10:01 AM EDT [facility] Gram Stain Neutrophils seen 10/10/19 24 10:01 AM EDT [facility] Gram Stain No microorganisms seen 10/10/2023 10:01 AM EDT [facility] Cerebrospinal Fluid CEREBROSPINAL FLUID SPECIMEN OBTAINED VIA VENTRICULOPERITONEAL SHUNT / Unknown Non Blood Collection / Unknown 09/30/2023 1:19 PM EDT 09/30/2023 1:46 PM EDT Rhoda Jimenez MD MICROBIOLOGY - GENER AL ORDERABLES Performing Organization Address City/[facility]/ZIP Co de Phone Number [facility] [place] [address] * CSF Description (09/30/2023 1:19 PM EDT) Tube Num CSF 2 09/30/2023 3:17 PM EDT [facility] Comment:Tube not collected. Tube Number CSF 1 09/30/2023 3:17 PM EDT [facility] Color, CSF Colorless 09/30/2023 3:17 PM EDT [facility] Appearance, CSF Clear 09/30/2023 3:17 PM EDT [facility] Total Vol, CSF 1.9 mL 09/30/2023 3:17 PM EDT [facility] Tube Num CSF 3 09/30/2023 3:17 PM EDT [facility] Comment:Tube not collected. Tube Num CSF 4 09/30/2023 3:17 PM EDT [facility] Comment:Tube not collected. Cerebrospinal Fluid VENTRICULAR SHUNT / Unknown Non Blood Collection / Unknown 09/30/2023 1:19 PM EDT 09/30/2023 1:26 PM EDT Rhoda Jimenez MD BODY FLUIDS AND STOO LS ORDERABLES Performing Organization Address [facility]/ZIP Co de Phone Number [facility] [place] [address] * Glucose Level CSF (09/30/2023 1:19 PM EDT) Glucose, CSF 86 mg/dL 10/23/2023 2:25 PM EDT [facility] Comment:At equilibrium, CSF glucose concentration is approximately 60-80% of plasma glucose. Cerebrospinal Fluid VENTRICULAR SHUNT / Unknown Non Blood Collection / Unknown 09/30/2023 1:19 PM EDT 09/30/2023 1:26 PM EDT Narrative [facility] - 10/23/2023 2:25 PM EDT The previously reported component Glucose Raw Result is no longer being reported. Rhoda Jimenez MD BODY FLUIDS AND STOO LS ORDERABLES Performing Organization Address City/[facility]/ZIP Co de Phone Number [facility] [place] [address] * Protein Level CSF (09/30/2023 1:19 PM EDT) Protein, CSF 16 mg/dL 09/30/2023 3:40 PM EDT [facility] Xanthochromati c, CSF Negative Negative 09/30/2023 3:40 PM EDT [facility] Cerebrospinal Fluid VENTRICULAR SHUNT / Unknown Non Blood Collection / Unknown 09/30/2023 1:19 PM EDT 09/30/2023 1:26 PM EDT Rhoda Jimenez MD BODY FLUIDS AND STOO LS ORDERABLES Performing Organization Address [facility] [facility] Co de Phone Number [facility] [place] [address] * CSF Cell Count (09/30/2023 1:19 PM EDT) Pathologist [facility] AUTO NUC CSF CT 4 0 - 5 /mcl 4 3:17 PM EDT [facility] Comment:All body fluid resul ts should always be interpreted in light of the total clinical presentation of the patient, including clinical history, data from additional tests and other appropriate information. AUTO RBC CSF CT 209 /mcl 4 3:17 PM EDT [facility] Diff Performed CSF? Yes 09/30/2023 3:17 PM EDT [facility] Segmented Neutrophils, CSF 8 <=90 % 09/30/2023 3:17 PM EDT [facility] Lymphocyte, CSF 54 % 4 3:17 PM EDT [facility] Macrophage CSF 16 % 09/30/2023 3:17 PM EDT [facility] Eosinophil CSF 22 % 09/30/2023 3:17 PM EDT [facility] Total Cells, CSF 125 Cells 09/30/19 3:17 PM EDT [facility] Cerebrospinal Fluid VENTRICULAR SHUNT / Unknown Non Blood Collection / Unknown 09/30/2023 1:19 PM EDT 09/30/2023 1:26 PM EDT Rhoda Jimenez MD BODY FLUIDS AND STOO LS ORDERABLES [facility] [place] [address] * (ABNORMAL) CBC (with Diff) (09/29/2023 1:45 AM EDT) White Blood Cell 11.89(H) 4.00 - 9.50 x10(3)/mc L 09/29/2023 2:33 AM EDT [facility] Red Blood Cell 5.73(H) 4.58 - 5.54 x10(6)/mc L 09/29/2023 2:33 AM EDT [facility] Hemoglobin 16.6(H) 13.7 - 16.5 g/dL 09/29/2023 2:33 AM EDT [facility] Hematocrit 49.2(H) 40.5 - 48.5 % 09/29/2023 2:33 AM EDT [facility] Mean Cell Volume 85.9 82.9 - 93.1 fL 09/29/2023 2:33 AM EDT [facility] Mean Cell Hemoglobin 29.0 27.5 - 32.1 pg 09/29/2023 2:33 AM EDT [facility] Mean Cell Hemoglobin Concentration 33.7 32.0 - 35.7 g/dL 09/29/2023 2:33 AM EDT [facility] Platelet 266 145 - 357 x10(3)/mc L 09/29/2023 2:33 AM EDT [facility] Mean Platelet Volume 9.2 7.6 - 12.9 fL 09/29/2023 2:33 AM EDT [facility] RDW Standard Deviation 40.3 36.0 - 45.0 fL 09/29/2023 2:33 AM [facility] RDW coefficient of variation 13.1 11.4 - 13.8 % 09/29/2023 2:33 AM [facility] NRBC% auto 0.0 % 09/29/2023 2:33 AM [facility] NRBC Absolute 0.00 0.00 - 0.00 x10(3)/mc L 09/29/2023 2:33 AM [facility] Neutrophil % 54.0 % 09/29/2023 2:33 AM [facility] Neutrophil Absolute (ANC) - Automated 6.42(H) 1.70 - 6.10 x10(3)/mc L 09/29/2023 2:33 AM [facility] Lymph % 38.1 % 09/29/2023 2:33 AM [facility] Lymph Absolute 4.53(H) 0.90 - 3.20 x10(3)/mc L 09/29/2023 2:33 AM [facility] Monocyte % 4.1 % 09/29/2023 2:33 AM [facility] Monocyte Absolute 0.49 0.30 - 0.90 x10(3)/mc L 09/29/2023 2:33 AM [facility] Eos % 2.8 % 09/29/2023 2:33 AM [facility] Eos Absolute 0.33 0.00 - 0.40 x10(3)/mc L 09/29/2023 2:33 AM [facility] Basophil % 0.7 % 09/29/2023 2:33 AM [facility] Baso Absolute 0.08 0.00 - 0.10 x10(3)/mc L 09/29/2023 2:33 AM [facility] Immature Gran % 0.3 % 2:33 AM [facility] Immature Gran Absolute 0.04 0.00 - 0.04 x10(3)/mc L 09/29/2023 2:33 AM EDT [facility] Blood VENOUS BLOOD SPECIMEN / Unknown IP Care Team Draw / Unknown 09/29/2023 1:45 AM EDT 09/29/2023 2:25 AM EDT Rhoda Jimenez MD HEMATOLOGY ORDERABLE S [facility] [address] [place] [address] * (ABNORMAL) Basic Metabolic Panel (09/29/2023 1:45 AM EDT) Glucose 112 65 - 199 mg/dL 09/29/2023 3:12 AM EDT [facility] Comment:Glucose Concentratio n >=200 mg/dL plus symptoms is consistent with Diabetes Mellitus. Blood Urea Nitrogen 14 10 - 20 mg/dL 09/29/2023 3:12 AM EDT [facility] Creatinine 1.07 0.80 - 1.50 mg/dL 09/29/2023 3:12 AM EDT [facility] Sodium 137 135 - 145 mMol/L 09/29/2023 3:12 AM EDT [facility] Potassium 4.0 3.5 - 5.0 mMol/L 09/29/2023 3:12 AM EDT [facility] Chloride 102 98 - 107 mMol/L 09/29[facility]23 [facility] Carbon Dioxide 21(L) 22 - 31 mMol/L 09/29/2023 3:12 AM EDT [facility] Anion Gap 14 5 - 15 mMol/L 09/29/2023 3:12 AM EDT [facility] Calcium 9.8 8.5 - 10.5 mg/dL 09/29/2023 3:[facility] Est Glomerular Filtration Rate - Male 85 mL/min/1. 73 m?? 09/29/2023 3:12 AM EDT [facility] Comment: This patient's estimated GFR was [...] eGFR. Link: eGFR Calculator [employer] Fasting Status No 09/29/2023 3:12 AM EDT [facility] Blood VENOUS BLOOD SPECIMEN / Unknown IP Care Team Draw / Unknown 09/29/2023 1:45 AM EDT 09/29/2023 2:25 AM EDT Rhoda Jimenez MD CHEMISTRY ORDERABLES Performing Organization Address City/[facility]/ZIP Co de Phone Number [facility] [place] [address] * Vancomycin Level, Random (09/29/2023 1:45 AM EDT) Vancomycin, Random 21.2 mg/L 2023 3:12 AM EDT [facility] Comment:This level is for de termination of the patient's vancomycin ntjx-[id number]-curve (AUC) value. Contact the inpatient pharmacy for interpretation. Blood VENOUS BLOOD SPECIMEN / Unknown IP Care Team Draw / Unknown 09/29/2023 1:45 AM EDT 09/29/2023 2:25 AM EDT Rhoda Jimenez MD CHEMISTRY ORDERABLES Performing Organization Address City/[facility]/ZIP Co de Phone Number [facility] [place] [address] * (ABNORMAL) Basic Metabolic Panel (non-fasting) (09/27/2023 3:09 AM EDT) Glucose 105 65 - 199 mg/dL 09/27/2023 3:55 AM [facility] Comment:Glucose Concentratio n >=200 mg/dL plus symptoms is consistent with Diabetes Mellitus. Blood Urea Nitrogen 13 10 - 20 mg/dL 09/27/2023 3:55 AM [facility] Creatinine 1.07 0.80 - 1.50 mg/dL 09/27/2023 3:55 AM [facility] Sodium 138 135 - 145 mMol/L 09/27/2023 3:55 AM [facility] Potassium 3.7 3.5 - 5.0 mMol/L 09/27/2023 3:55 AM [facility] Chloride 105 98 - 107 mMol/L 09/27/2023 3:55 AM [facility] Carbon Dioxide 20(L) 22 - 31 mMol/L 09/27/2023 3:55 AM [facility] Anion Gap 13 5 - 15 mMol/L 09/27/2023 3:55 AM [facility] Calcium 9.6 8.5 - 10.5 mg/dL 09/27/2023 3:55 AM [facility] Est Glomerular Filtration Rate - Male 85 mL/min/1. 73 m?? 09/27/2023 3:55 AM [facility] Comment: This patient's estimated GFR was [...] eGFR. Link: eGFR Calculator [employer] [facility] Fasting Status No 09/27/2023 3:55 AM [facility] Blood VENOUS BLOOD SPECIMEN / Unknown IP Care Team Draw / Unknown 09/27/2023 3:09 AM EDT 09/27/2023 3:20 AM EDT Henrytiffany Lunajacob DE JESUS CHEMISTRY ORDERABL ES [facility] [place] [address] * (ABNORMAL) CBC (with Diff) (09/27/2023 3:09 AM EDT) White Blood Cell 10.74(H) 4.00 - 9.50 x10(3)/mc L 09/27/2023 3:25 AM EDT [facility] Red Blood Cell 5.46 4.58 - 5.54 x10(6)/mc L 09/27/2023 3:25 AM EDT [facility] Hemoglobin 15.7 13.7 - 16.5 g/dL 09/27/2023 3:25 AM EDT [facility] Hematocrit 47.3 40.5 - 48.5 % 09/27/2023 3:25 AM EDT [facility] Mean Cell Volume 86.6 82.9 - 93.1 fL 09/27/2023 3:25 AM EDT [facility] Mean Cell Hemoglobin 28.8 27.5 - 32.1 pg 09/27/2023 3:25 AM EDT [facility] Mean Cell Hemoglobin Concentration 33.2 32.0 - 35.7 g/dL 09/27/2023 3:25 AM EDT [facility] Platelet 215 145 - 357 x10(3)/mc L 09/27/2023 3:25 AM EDT [facility] Mean Platelet Volume 9.2 7.6 - 12.9 fL 09/27/2023 3:25 AM EDT [facility] RDW Standard Deviation 41.4 36.0 - 45.0 fL 09/27/2023 3:[facility] RDW coefficient of variation 13.2 11.4 - 13.8 % 09/27/2023 3:25 AM [facility] NRBC% auto 0.0 % 09/27/2023 3:25 AM [facility] NRBC Absolute 0.00 0.00 - 0.00 x10(3)/mc L 09/27/2023 3:25 AM [facility] Neutrophil % 54.1 % 09/27/2023 3:25 AM [facility] Neutrophil Absolute (ANC) - Automated 5.82 1.70 - 6.10 x10(3)/mc L 09/27/2023 3:25 AM [facility] Lymph % 38.0 % 09/27/2023 3:25 AM [facility] Lymph Absolute 4.08(H) 0.90 - 3.20 x10(3)/mc L 09/27/2023 3:25 AM [facility] Monocyte % 5.2 % 09/27/2023 3:25 AM [facility] Monocyte Absolute 0.56 0.30 - 0.90 x10(3)/mc L 09/27/2023 3:25 AM [facility] Eos % 1.9 % 09/27/2023 3:25 AM [facility] Eos Absolute 0.20 0.00 - 0.40 x10(3)/mc L 09/27/2023 3:25 AM [facility] Basophil % 0.5 % 09/27/2023 3:25 AM [facility] Baso Absolute 0.05 0.00 - 0.10 x10(3)/mc L 09/27/2023 3:25 AM [facility] Immature Gran % 0.3 % 3:25 AM [facility] Immature Gran Absolute 0.03 0.00 - 0.04 x10(3)/mc L 09/27/2023 3:25 AM [facility] Blood VENOUS BLOOD SPECIMEN / Unknown IP Care Team Draw / Unknown 09/27/2023 3:09 AM EDT 09/27/2023 3:20 AM EDT Henry Elder BOILER MECHANIC HEMATOLOGY ORDERAB LES Performing Organization Address [facility] Co de Phone Number [facility] [place] [address] * Phosphorus (09/26/2023 3:31 AM EDT) Phosphorus 2.6 2.5 - 4.5 mg/dL 09/26/2023 4:55 AM EDT [facility] Blood VENOUS BLOOD SPECIMEN / Unknown IP Care Team Draw / Unknown 09/26/2023 3:31 AM EDT 09/26/2023 3:49 AM EDT Henry Elder BOILER MECHANIC CHEMISTRY ORDERABL ES Performing Organization Address [facility] Co de Phone Number [facility] [place] [address] * Magnesium (09/26/2023 3:31 AM EDT) Magnesium 0.82 0.69 - 1.07 mMol/L 09/26/2023 5:02 AM EDT [facility] Blood VENOUS BLOOD SPECIMEN / Unknown IP Care Team Draw / Unknown 09/26/2023 3:31 AM EDT 09/26/2023 3:49 AM EDT Henry Ramos Troyjacob BOILER MECHANIC CHEMISTRY ORDERABL ES Performing Organization Address [facility] Co de Phone Number [facility] [place] [address] * (ABNORMAL) CBC (with Diff) (09/26/2023 3:31 AM EDT) White Blood Cell 10.89(H) 4.00 - 9.50 x10(3)/mc L 09/26/2023 5:29 AM EDT [facility] Red Blood Cell 4.83 4.58 - 5.54 x10(6)/mc L 09/26/2023 5:29 AM [facility] Hemoglobin 14.2 13.7 - 16.5 g/dL 09/26/2023 5:29 AM [facility] Hematocrit 42.5 40.5 - 48.5 % 09/26/2023 5:29 AM [facility] Mean Cell Volume 88.0 82.9 - 93.1 fL 09/26/2023 5:29 AM [facility] Mean Cell Hemoglobin 29.4 27.5 - 32.1 pg 09/26/2023 5:29 AM [facility] Mean Cell Hemoglobin Concentration 33.4 32.0 - 35.7 g/dL 09/26/2023 5:29 AM [facility] Platelet 188 145 - 357 x10(3)/mc L 09/26/2023 5:29 AM [facility] Mean Platelet Volume 10.1 7.6 - 12.9 fL 09/26/2023 5:29 AM [facility] RDW Standard Deviation 42.5 36.0 - 45.0 fL 09/26/2023 5:29 AM [facility] RDW coefficient of variation 13.2 11.4 - 13.8 % 09/26/2023 5:29 AM [facility] NRBC% auto 0.0 % 09/26/2023 5:29 AM [facility] NRBC Absolute 0.00 0.00 - 0.00 x10(3)/mc L 09/26/2023 5:29 AM [facility] Neutrophil % 59.4 % 09/26/2023 5:29 AM [facility] Neutrophil Absolute (ANC) - Automated 6.47(H) 1.70 - 6.10 x10(3)/mc L 09/26/2023 5:29 AM [facility] Lymph % 32.6 % 09/26/2023 5:29 AM EDT [facility] Lymph Absolute 3.55(H) 0.90 - 3.20 x10(3)/mc L 09/26/2023 5:29 AM EDT [facility] Monocyte % 5.8 % 09/26/2023 5:29 AM EDT [facility] Monocyte Absolute 0.63 0.30 - 0.90 x10(3)/mc L 09/26/2023 5:29 AM EDT [facility] Eos % 1.7 % 09/26/2023 5:29 AM EDT [facility] Eos Absolute 0.19 0.00 - 0.40 x10(3)/mc L 09/26/2023 5:29 AM EDT [facility] Basophil % 0.3 % 09/26/2023 5:29 AM EDT [facility] Baso Absolute 0.03 0.00 - 0.10 x10(3)/mc L 09/26/2023 5:29 AM EDT [facility] Immature Gran % 0.2 % 5:29 AM EDT [facility] Immature Gran Absolute 0.02 0.00 - 0.04 x10(3)/mc L 09/26/2023 5:29 AM EDT [facility] Blood VENOUS BLOOD SPECIMEN / Unknown IP Care Team Draw / Unknown 09/26/2023 3:31 AM EDT 09/26/2023 3:49 AM EDT Henry Elder BOILER MECHANIC HEMATOLOGY ORDERAB LES [facility] [place] [address] * Vancomycin, trough (09/26/2023 3:31 AM EDT) Vancomycin, Trough 16.9 10.0 - 20.0 mg/L 09/26/2023 4:55 AM EDT [facility] Comment: Varies according to infection source. Blood VENOUS BLOOD SPECIMEN / Unknown IP Care Team Draw / Unknown 09/26/2023 3:31 AM EDT 09/26/2023 3:49 AM EDT Rhoda Jimenez MD CHEMISTRY ORDERABLES [facility] [place] [address] * Basic Metabolic Panel (09/26/2023 3:30 AM EDT) Glucose 104 65 - 199 mg/dL [facility] Comment:Diabetes: >=200 mg/d L plus symptoms Blood Urea Nitrogen 13 10 - 20 mg/dL [facility] Creatinine 1.15 0.80 - 1.50 mg/dL [facility] Sodium 139 135 - 145 mmol/L [facility] Potassium 4.2 3.5 - 5.0 mmol/L [facility] Comment: Please note: ??Patients with WBC >100,000 may have falsely elevated Potassium levels. ??For accurate Potassium quantification in these patients send serum separator tube (gold top) for subsequent determinations. ??Contact the Clinical Chemistry Laboratory if there are any questions. Chloride 107 98 - 107 mmol/L [facility] Carbon Dioxide 22 22 - 31 mmol/L [facility] Anion Gap 10 5 - 15 mmol/L [facility] Calcium 8.6 8.5 - 10.5 mg/dL [facility] Est Glomerular Filtration Rate 78 >=60 mL/min/1. 73 m?? [facility] Comment: This patient's estimated GFR was [...] urine creatinine clearance. Assignment of CKD stage 1-5 for patients with an eGFR near the transition point between stages may be based on clinical assessment of muscle mass and symptoms in addition to eGFR. Blood 09/26/2023 3:30 AM EDT 09/26/2023 3:50 AM EDT Narrative Resulting Agency Comment Spec In Lab Henry Elder LIZA CHEMISTRY ORDERABL ES Performing Organization Address [facility] Co de Phone Number [facility] [place] [address] * Iron Stain, Body Fluid (09/25/2023 12:25 PM EDT) Iron Stain BF Type CSF [facility] Body Fluid Iron Stain, Fld See Comment [facility] Comment:Cerebrospinal fluid positive for hemosiderin. Cerebrospinal Fluid 09/25/19 12:25 PM EDT 09/25/2023 12:46 PM EDT Narrative Resulting Agency Comment Spec In Lab Sarika DURHAM HEMATOLOGY ORDERABL ES Performing Organization Address [facility] Co de Phone Number [facility] [place] [address] * (ABNORMAL) CSF Cell Count (09/25/2023 12:25 PM EDT) Tube # counted 1 [facility] AUTO NUC CSF CT 80(H) 0 - 5 /mcl [facility] Comment: If Nucleated CSF CT result equals Zero, no smear is made and no Differential is performed. If Nucleated CSF CT result is 1-5 / mcL, a smear is made and scanned but no results are reported unless abnormalities are noted. If Nucleated CSF CT result is 6 /mcL or greater, a smear is made and manual differential is performed and reported. Nucleated CSF CT results on a CSF fluid must be correlated with clinical condition. RBC CSF CT 596 /mcl [facility] Segmented Neutrophils, CSF 93(Critic al) % [facility] Comment:Called by: jeff, Read back by: robin jones, Date/Time:09/25/23 14:24. Lymphocyte, CSF 2 % [facility] Macrophage CSF 5 % [facility] Comment: Hemosiderin suspected. To be confirmed by iron stain. Occassional WBC phagocytosis. Slide review per routine audit. Corrected report to add slide comments. Called by: CAMMY, Read back by: Josselyn Diaz, Date/Time:10/07/23 16:17. Corrected from 5 % [NA] on 10/07/23 16:17:42 EDT by Lela Abraham Total Cells, CSF 200 Cells [facility] Cerebrospinal Fluid 09/25/19 12:25 PM EDT 09/25/2023 12:46 PM EDT Narrative Resulting Agency Comment Spec In Lab Sarika E Delvasto PA BODY FLUIDS AND STO OLS ORDERABLES Performing Organization Address [facility] Co de Phone Number [facility] [place] [address] * CSF DESC 1 (09/25/2023 12:25 PM EDT) Tube Num CSF #1 1 [facility] Color, CSF Colorless Colorless [facility] Appearance, CSF Clear Clear [facility] Total Vol, CSF 2.3 mL [facility] Cerebrospinal Fluid 09/25/19 12:25 PM EDT 09/25/2023 12:46 PM EDT Narrative Resulting Agency Comment Spec In Lab Sarika E Delvasto PA BODY FLUIDS AND STO OLS ORDERABLES Performing Organization Address City/[facility]/ZIP Co de Phone Number [facility] [place] [address] * Glucose Level CSF (09/25/2023 12:25 PM EDT) Glucose, CSF 106 mg/dL [facility] Comment:CSF at equilibrium e quals approximately 60-80% of plasma glucose. Cerebrospinal Fluid 09/25/19 12:25 PM EDT 09/25/2023 12:46 PM EDT Narrative Resulting Agency Comment Spec In Lab Rhoda Jimenez MD BODY FLUIDS AND STOO LS ORDERABLES Performing Organization Address [facility] Co de Phone Number [facility] [place] [address] * Protein Level CSF (09/25/2023 12:25 PM EDT) Pathologist [facility] Protein, CSF 32 15 - 45 mg/dL [facility] Comment:result rechecked-EWR Xanthochromia Neg [facility] Cerebrospinal Fluid 09/25/19 12:25 PM EDT 09/25/2023 12:46 PM EDT Narrative Resulting Agency Comment Spec In Lab Rhoda Jimenez MD BODY FLUIDS AND STOO LS ORDERABLES Performing Organization Address [facility] Co de Phone Number [facility] [place] [address] * TUBE TEST TECHNICIAN Shunt Culture (09/25/2023 12:24 PM EDT) Pathologist [facility] Central Nervous System Shunt Culture No growth at 10 days. [facility] Gram Stain Cytocentrifuge Gram Stain performed Neutrophils seen No microorganisms seen. [facility] Cerebrospinal Shunt Fluid 09/25/2023 12:24 PM EDT 09/25/2023 1:00 PM EDT Narrative Resulting Agency Comment Spec In Lab Sarika DURHAM MICROBIOLOGY - GENE RAL ORDERABLES Performing Organization Address [facility]/ZIP Co de Phone Number [facility] [place] [address] * (ABNORMAL) Differential, Automated (09/25/2023 3:20 AM EDT) Neutrophil % 86.0 % [facility] Neutrophil Absolute 15.58(H) 1.70 - 6.10 x10(3)/mc L [facility] Lymph % 10.2 % [facility] Lymphocytes Abs 1.8 0.9 - 3.2 x10(3)/mc L [facility] Monocyte % 3.3 % [facility] Monocyte Abs 0.6 0.3 - 0.9 x10(3)/[facility] Eos % 0.0 % [facility] Eosinophils Abs 0.0 0.0 - 0.4 x10(3)/[facility] Basophil % 0.1 % [facility] Baso Absolute 0.0 0.0 - 0.1 x10(3)/[facility] Immature Gran % 0.40 % [facility] Comment: Immature granulocytes(IG's)percentage and absolute count will include metamyelocytes, myelocytes, and promyelocytes. Blood smears from CBCs yielding IG's will be scanned manually for concordance. If this scan disagrees with the automated IG or if promyelocytes are noted, a manual differential will be performed. Immature Gran Absolute 0.07(H) 0.00 - 0.04 x10(3)/[facility] Blood 09/25/2023 3:20 AM EDT 09/25/2023 3:49 AM EDT Narrative Resulting Agency Comment Spec In Lab Henry Elder APRN HEMATOLOGY ORDERAB LES Performing Organization Address City/State/[facility] Co de Phone Number [facility] [place] [address] * (ABNORMAL) Hemogram (09/25/2023 3:20 AM EDT) White Blood Cell 18.1(H) 4.0 - 9.5 x10(3)/[facility] [place] LABORATORY Red Blood Cell 5.10 4.58 - 5.54 x10(6)/[facility] [place] LABORATORY Hemoglobin 14.8 13.7 - 16.5 g/dL [facility] Hematocrit 43.6 40.5 - 48.5 % [facility] Mean Cell Volume 85.5 82.9 - 93.1 fL [facility] Mean Cell Hemoglobin 29.0 27.5 - 32.1 pg [facility] Mean Cell Hemoglobin Concentration 33.9 32.0 - 35.7 g/dL [facility] Platelet 237 145 - 357 x10(3)/mc L [facility] RDW Standard Deviation 40.0 36.0 - 45.0 [facility] LABORATORY RDW coefficient of variation 12.9 11.4 - 13.8 % [facility] Mean Platelet Volume 10.0 7.6 - 12.9 fL [facility] NRBC% auto 0.0 % [facility] NRBC Absolute 0.000 0.000 - 0.000 x10(3)/mc L [facility] Blood 09/25/2023 3:20 AM EDT 09/25/2023 3:49 AM EDT Narrative Resulting Agency Comment Spec In Lab Henry Elder APRN HEMATOLOGY ORDERAB LES [facility] [place] [address] * Phosphorus (09/25/2023 3:20 AM EDT) Phosphorus 3.0 2.5 - 4.5 mg/dL [facility] Blood 09/25/2023 3:20 AM EDT 09/25/2023 3:49 AM EDT Narrative Resulting Agency Comment Spec In Lab Henry Elder [employer] CHEMISTRY ORDERABL ES [facility] [place] [address] * Magnesium (09/25/2023 3:20 AM EDT) Magnesium 0.83 0.69 - 1.07 mmol/L [facility] Blood 09/25/2023 3:20 AM EDT 09/25/2023 3:49 AM EDT Narrative Resulting Agency Comment Spec In Lab Henry Elder [employer] CHEMISTRY ORDERABL ES [facility] [place] [address] * Basic Metabolic Panel (non-fasting) (09/25/2023 3:20 AM EDT) Glucose 133 65 - 199 mg/dL [facility] [facility] Comment:Diabetes: >=200 mg/d L plus symptoms Blood Urea Nitrogen 13 10 - 20 mg/dL [facility] Creatinine 1.08 0.80 - 1.50 mg/dL [facility] Sodium 141 135 - 145 mmol/L [facility] Potassium 4.2 3.5 - 5.0 mmol/L [facility] Comment: Please note: ??Patients with WBC >100,000 may have falsely elevated Potassium levels. ??For accurate Potassium quantification in these patients send serum separator tube (gold top) for subsequent determinations. ??Contact the Clinical Chemistry Laboratory if there are any questions. Chloride 107 98 - 107 mmol/L [facility] Carbon Dioxide 22 22 - 31 mmol/L [facility] Anion Gap 12 5 - 15 mmol/L [facility] Calcium 8.7 8.5 - 10.5 mg/dL [facility] Est Glomerular Filtration Rate 84 >=60 mL/min/1. 73 m?? [facility] Comment: This patient's estimated GFR was [...] urine creatinine clearance. Assignment of CKD stage 1-5 for patients with an eGFR near the transition point between stages may be based on clinical assessment of muscle mass and symptoms in addition to eGFR. Blood 09/25/2023 3:20 AM EDT 09/25/2023 3:49 AM EDT Narrative Resulting Agency Comment Spec In Lab Henry Elder BOILER MECHANIC CHEMISTRY ORDERABL ES [facility] [place] [place] [address] * CT Head wo Contrast (Generic) (09/24/2023 4:31 PM EDT) WORKSTATION ID [id number] RAD Anatomical Region Laterality Modality Head Computed Tomogra phy Impressions 09/24/2023 5:21 PM EDT 1. ??Ventricular catheter tip just above the foramen of Girish. 2. ??Slightly increased size of small ventricular system. 3. ??No acute intracranial hemorrhage. Thank you for letting us participate in the care of this patient. ??If you are a health care provider and have any questions regarding this report, please contact the number below. ??For patients who have questions please contact the health managed care liaison that requested your imaging first. ? Narrative 09/24/2023 5:21 PM EDT EXAMINATION: CT HEAD WO CONTRAST (GENERIC) CLINICAL HISTORY: S/P insertion of EVD. TECHNIQUE: CT head performed without intravenous contrast administration. COMPARISON: Head CT 09/23/2023 FINDINGS: Right frontal approach ventricular catheter with tip just above the foramen of Girish. Slight increased size of the ventricular system which remains small, but no longer slit like. Basal cisterns are patent. No mass effect or midline shift. Small quantity of intracranial pneumocephalus. No acute intracranial hemorrhage. No extra-axial fluid collections. Unchanged patchy areas of low-attenuation in the posterior right centrum semiovale. Unchanged small area of low-attenuation within the superior right frontal lobe adjacent to the catheter tract. No findings to suggest transependymal CSF flow. Angel matter white matter differentiation is otherwise well preserved, no evidence of acute cortical infarction. The orbits are unremarkable. Trace layering fluid in the right maxillary sinus. The remainder the paranasal sinuses are clear. Trace fluid in the right dependent mastoid air cells. The left mastoid air cells are clear. Superior right frontal gala hole. Status post prior lateral right craniotomy at the level of the middle cranial fossa. No acute osseous findings. Small quantity of subcutaneous gas along the superior right scalp. Procedure Note Chapin Peacock MD - 09/24/2023 EXAMINATION: CT HEAD WO CONTRAST (GENERIC) CLINICAL HISTORY: S/P insertion of EVD. TECHNIQUE: CT head performed without intravenous contrast administration. COMPARISON: Head CT 09/23/2023 FINDINGS: Right frontal approach ventricular catheter with tip just above theforamen of Girish. Slight increased size of the ventricular system which remainssmall, but no longer slit like. Basal cisterns are patent. No mass effect or midlineshift. Small quantity of intracranial pneumocephalus. No acute intracranial hemorrhage. No extra-axial fluid collections. Unchanged patchy areas of low-attenuation in the posterior right centrum semiovale. Unchanged small area of low-attenuation within the superiorright frontal lobe adjacent to the catheter tract. No findings to suggest transependymal CSF flow. Angel matter white matter differentiation is otherwise well preserved, no evidence of acute cortical infarction. The orbits are unremarkable.Trace layering fluid in the right maxillary sinus. The remainder the paranasalsinuses are clear. Trace fluid in the right dependent mastoid air cells. Theleft mastoid air cells are clear. Superior right frontal gala hole. Status postprior lateral right craniotomy at the level of the middle cranial fossa. Noacute osseous findings. Small quantity of subcutaneous gas along the superiorright scalp. IMPRESSION 1. Ventricular catheter tip just above the foramen of Girish. 2. Slightly increased size of small ventricular system. 3. No acute intracranial hemorrhage. Thank you for letting us participate in the care of this patient. If youare a health care provider and have any questions regarding this report,please contact the number below. For patients who have questions please contactthe health managed care liaison that requested your imaging first. Electronically signed by: Chapin Peacock MD, [facility]([phone]), at 09/24/2023 5:21 PM Rhoda Jimenez MD IMG CT ORDERABLES * Anaerobic Culture (09/24/2023 10:30 AM EDT) Anaerobic Culture No anaerobic organisms isolated [facility] Fluid 09/24/2023 10:3 0 AM EDT 09/24/2023 11:49 AM EDT Comment:CSF Narrative Resulting Agency Comment Spec In Lab Rhoda Jimenez MD MICROBIOLOGY - GENER AL ORDERABLES Performing Organization Address [facility]/ZIP Co de Phone Number [facility] [place] [address] * Body Fluid Culture, Aerobic (09/24/2023 10:30 AM EDT) Body Fluid Culture No growth [facility] Gram Stain Cytocentrifuge Gram Stain performed No Neutrophils seen. No microorganisms seen. [facility] Fluid 09/24/2023 10:3 0 AM EDT 09/24/2023 11:49 AM EDT Comment:CSF Narrative Resulting Agency Comment Spec In Lab Rhoda Jimenez MD MICROBIOLOGY - GENER AL ORDERABLES Performing Organization Address City/[facility]/ZIP Co de Phone Number [facility] [place] [address] * Fungus culture (09/24/2023 10:30 AM EDT) Fungus Culture No Fungus isolated [facility] Cerebrospinal Fluid 09/24/19 10:30 AM EDT 09/24/2023 11:49 AM EDT Narrative Resulting Agency Comment Spec In Lab Rhoda Jimenez MD MICROBIOLOGY - GENER AL ORDERABLES Performing Organization Address [facility] Co de Phone Number [facility] [place] [address] * AFB culture (09/24/2023 10:30 AM EDT) Acid Fast Bacilli Culture No Acid Fast Bacilli isolated Specimen received with sub-optimal CSF volume of <5 mL. The sensitivity of the AFB culture is therefore compromised. [facility] Cerebrospinal Fluid 09/24/19 10:30 AM EDT 09/24/2023 11:49 AM EDT Narrative Resulting Agency Comment Spec In Lab Rhoda Jimenez MD MICROBIOLOGY - GENER AL ORDERABLES Performing Organization Address [facility] de Phone Number [facility] [place] [address] * Calcium Ionized Whole Blood, CHANO (09/24/2023 3:17 AM EDT) Pathologist [facility] pH, Venous 7.39 7.32 - 7.42 [facility] ICa Whole Blood 1.20 1.15 - 1.33 mmol/L [facility] Comment: Note: ??Total bilirubin higher than 20 mg/dL may lead to falsely low ionized calcium. Blood 09/24/2023 3:17 AM EDT 09/24/2023 3:26 AM EDT Narrative Resulting Agency Comment Spec In Lab Henry Elder BOILER MECHANIC CHEMISTRY ORDERABL ES Performing Organization Address [facility] Co de Phone Number [facility] [place] [address] * Type and Screen Validity (09/24/2023 3:15 AM EDT) T&S only valid at [facility] Comment:This Type and Screen result is only valid at the [facility] Blood 09/24/2023 3:15 AM EDT 09/24/2023 3:41 AM EDT Narrative Resulting Agency Comment Spec In Lab Henry Elder APRN BLOOD BANK LAB ORD ERABLES [facility] [place] [address] * ABORH Recheck Status (09/24/2023 3:15 AM EDT) ABORH Type Recheck Completed [facility] Blood 09/24/2023 3:15 AM EDT 09/24/2023 3:41 AM EDT Narrative Resulting Agency Comment Spec In Lab Henry Elder APRN BLOOD BANK LAB ORD ERABLES Performing Organization Address [facility] Co de Phone Number [facility] [place] [address] * Type and screen ([facility]DULCE MARIA[place] (09/24/2023 3:15 AM EDT) ABORH Type A POSITIVE [facility] Patient BB History Found [facility] Expires at [id number] on: 09/27/2023 [facility] Ab Screen Interp Negative [facility] Blood 09/24/2023 3:15 AM EDT 09/24/2023 3:15 AM EDT Narrative [facility] - 09/24/2023 3:15 AM EDT This Type and Screen result is only valid at the [facility] Resulting Agency Comment Spec In Lab Henry Elder APRN BLOOD BANK LAB ORD ERABLES Performing Organization Address City/[facility]/ZIP Co de Phone Number [facility] [place] [address] * POCT Glucose (09/24/2023 2:36 AM EDT) Glucose, POC 97 65 - 199 mg/dL [facility] Comment: Supplemental ranges: <140 mg/dL before meals <180 mg/dL all other times of the day Blood 09/24/2023 2:36 AM EDT 09/24/2023 2:36 AM EDT Rhoda Jimenez MD POINT OF CARE TEST O RDERABLES [facility] [place] [address] * (ABNORMAL) Differential, Automated (09/24/2023 12:30 AM EDT) Neutrophil % 60.4 % [facility] Neutrophil Absolute 6.98(H) 1.70 - 6.10 x10(3)/ L [facility] Lymph % 32.2 % [facility] Lymphocytes Abs 3.7(H) 0.9 - 3.2 x10(3)/ L [facility] Monocyte % 5.6 % [facility] Monocyte Abs 0.6 0.3 - 0.9 x10(3)/ L [facility] Eos % 1.1 % [facility] Eosinophils Abs 0.1 0.0 - 0.4 x10(3)/ L [facility] Basophil % 0.4 % [facility] Baso Absolute 0.0 0.0 - 0.1 x10(3)/ L [facility] Immature Gran % 0.30 % [facility] Comment: Immature granulocytes(IG's)percentage and absolute count will include metamyelocytes, myelocytes, and promyelocytes. Blood smears from CBCs yielding IG's will be scanned manually for concordance. If this scan disagrees with the automated IG or if promyelocytes are noted, a manual differential will be performed. Immature Gran Absolute 0.03 0.00 - 0.04 x10(3)/mc L [facility] Blood 09/24/2023 12:3 0 AM EDT 09/24/2023 12:44 AM EDT Narrative Resulting Agency Comment Spec In Lab Richard Valles MD HEMATOLOGY ORDERABLE S Performing Organization Address City/[facility]/ZIP Co de Phone Number [facility] [place] [address] * (ABNORMAL) Hemogram (09/24/2023 12:30 AM EDT) White Blood Cell 11.6(H) 4.0 - 9.5 x10(3)/mc L [facility] Red Blood Cell 5.52 4.58 - 5.54 x10(6)/mc L [facility] Hemoglobin 16.0 13.7 - 16.5 g/dL [facility] Hematocrit 47.0 40.5 - 48.5 % [facility] Mean Cell Volume 85.1 82.9 - 93.1 fL [facility] Mean Cell Hemoglobin 29.0 27.5 - 32.1 pg [facility] Mean Cell Hemoglobin Concentration 34.0 32.0 - 35.7 g/dL [facility] Platelet 213 145 - 357 x10(3)/mc L [facility] RDW Standard Deviation 39.5 36.0 - 45.0 [facility] RDW coefficient of variation 12.8 11.4 - 13.8 % [facility] Mean Platelet Volume 9.5 7.6 - 12.9 [facility] NRBC% auto 0.0 % [facility] NRBC Absolute 0.000 0.000 - 0.000 x10(3)/mc L [facility] Blood 09/24/2023 12:3 0 AM EDT 09/24/2023 12:44 AM EDT Narrative Resulting Agency Comment Spec In Lab Richard Valles MD HEMATOLOGY ORDERABLE S [facility] [place] [address] * Basic Metabolic Panel (non-fasting) (09/24/2023 12:30 AM EDT) Glucose 89 65 - 199 mg/dL [facility] Comment:Diabetes: >=200 mg/d L plus symptoms Blood Urea Nitrogen 13 10 - 20 mg/dL [facility] Creatinine 0.89 0.80 - 1.50 mg/dL [facility] Sodium 139 135 - 145 mmol/L [facility] Potassium 3.8 3.5 - 5.0 mmol/L [facility] Comment: Please note: ??Patients with WBC >100,000 may have falsely elevated Potassium levels. ??For accurate Potassium quantification in these patients send serum separator tube (gold top) for subsequent determinations. ??Contact the Clinical Chemistry Laboratory if there are any questions. Chloride 104 98 - 107 mmol/L [facility] Carbon Dioxide 23 22 - 31 mmol/L [facility] Anion Gap 12 5 - 15 mmol/L [facility] Calcium 9.3 8.5 - 10.5 mg/dL [facility] Est Glomerular Filtration Rate 104 >=60 mL/min/1. 73 m?? [facility] Comment: This patient's estimated GFR was [...] urine creatinine clearance. Assignment of CKD stage 1-5 for patients with an eGFR near the transition point between stages may be based on clinical assessment of muscle mass and symptoms in addition to eGFR. Blood 09/24/2023 12:3 0 AM EDT 09/24/2023 12:44 AM EDT Narrative Resulting Agency Comment Spec In Lab Annita Dhaliwal MD CHEMISTRY ORDERABLES [facility] [place] [address] * (ABNORMAL) TUBE TEST TECHNICIAN Shunt Culture (09/23/2023 11:30 PM EDT) Central Nervous System Shunt Culture No growth at 10 days.(A) [facility] Reviewed Stain Note: This is a corrected report Cytocentrifuge Gram Stain performed Neutrophils seen No microorganisms seen. Previously reported as: Cytocentrifuge Gram Stain performed Neutrophils seen Rare Gram Positive Rods seen (A) [facility] Gram Stain Cytocentrifuge Gram Stain performed Neutrophils seen Rare Gram Positive Rods seen Results called to and read back by 09/24/23 01:01:08 Gina Harper (A) [facility] Organism Gram Positive Rods(A) [facility] Cerebrospinal Shunt Fluid 09/23/2023 11:30 PM EDT 09/24/2023 12:27 AM EDT Narrative Resulting Agency Comment Spec In Lab Richard Valles MD MICROBIOLOGY - GENER AL ORDERABLES [facility] [place] [address] * CSF Cell Count (09/23/2023 11:30 PM EDT) Tube # counted 1 [facility] AUTO NUC CSF CT 4 0 - 5 /mcl [facility] Comment: If Nucleated CSF CT result equals Zero, no smear is made and no Differential is performed. If Nucleated CSF CT result is 1-5 / mcL, a smear is made and scanned but no results are reported unless abnormalities are noted. If Nucleated CSF CT result is 6 /mcL or greater, a smear is made and manual differential is performed and reported. Nucleated CSF CT results on a CSF fluid must be correlated with clinical condition. RBC CSF CT 161 /mcl [facility] Cerebrospinal Fluid 09/23/19 11:30 PM EDT 09/24/2023 12:13 AM EDT Narrative Resulting Agency Comment Spec In Lab Richard Valles MD BODY FLUIDS AND STOO LS ORDERABLES Performing Organization Address City/[facility]/ZIP Co de Phone Number [facility] [place] [address] * CSF DESC 1 (09/23/2023 11:30 PM EDT) Tube Num CSF #1 1 [facility] Color, CSF Colorless Colorless [facility] Appearance, CSF Clear Clear [facility] Total Vol, CSF 2.5 mL [facility] Cerebrospinal Fluid 09/23/19 11:30 PM EDT 09/24/2023 12:13 AM EDT Narrative Resulting Agency Comment Spec In Lab Richard Valles MD BODY FLUIDS AND STOO LS ORDERABLES Performing Organization Address [facility] Co de Phone Number [facility] [place] [address] * Glucose Level CSF (09/23/2023 11:30 PM EDT) Glucose, CSF 65 mg/dL [facility] Comment:CSF at equilibrium e quals approximately 60-80% of plasma glucose. Cerebrospinal Fluid 09/23/19 11:30 PM EDT 09/24/2023 12:13 AM EDT Narrative Resulting Agency Comment Spec In Lab Annita Dhaliwal MD BODY FLUIDS AND STOO LS ORDERABLES Performing Organization Address City/[facility]/ZIP Co de Phone Number [facility] [place] [address] * (ABNORMAL) Protein Level CSF (09/23/2023 11:30 PM EDT) Protein, CSF 70(H) 15 - 45 mg/dL [facility] Xanthochromia Neg [facility] Cerebrospinal Fluid 09/23/19 11:30 PM EDT 09/24/2023 12:13 AM EDT Narrative Resulting Agency Comment Spec In Lab Annita Dhaliwal MD BODY FLUIDS AND STOO LS ORDERABLES Performing Organization Address City/[facility]/ZIP Co de Phone Number [facility] [place] [address] * L-Lactate2 Whole Blood (09/23/2023 11:00 PM EDT) Lactate WB 1.4 0.5 - 2.2 mmol/L [facility] Blood 09/23/2023 11:0 0 PM EDT 09/23/2023 11:00 PM EDT Annita Dhaliwal MD CHEMISTRY ORDERABLES Performing Organization Address [facility] Co de Phone Number [facility] [place] [address] * CT Head wo Contrast (Generic) (09/23/2023 8:01 PM EDT) Pathologist [facility] WORKSTATION ID [id number] RAD Anatomical Region Laterality Modality Head Computed Tomogra phy Impressions 09/23/2023 8:42 PM EDT Unchanged caliber of the ventricles. Thank you for letting us participate in the care of this patient. ??If you are a health care provider and have any questions regarding this report, please contact the number below. ??For patients who have questions please contact the health managed care liaison that requested your imaging first. ? Narrative 09/23/2023 8:42 PM EDT EXAMINATION: CT HEAD WO CONTRAST (GENERIC) CLINICAL HISTORY: c/f shunt infection TECHNIQUE: CT Head was performed without contrast COMPARISON: CT head 07/02/2023 and 06/16/2023 FINDINGS: Right frontal approach ventricular shunt catheter is unchanged in position near the midline. The visualized tubing appears intact. ??Unchanged slitlike caliber of the ventricles. Basilar cisterns are patent. There is no acute intracranial hemorrhage. The angel-white differentiation is preserved. There is no mass effect, midline shift or extra-axial fluid collection. The visualized paranasal sinuses and mastoid air cells are clear. The visualized orbits are unremarkable in appearance. ?? Procedure Note Linsey Herrera MD - 09/23/2023 EXAMINATION: CT HEAD WO CONTRAST (GENERIC) CLINICAL HISTORY: c/f shunt infection TECHNIQUE: CT Head was performed without contrast COMPARISON: CT head 07/02/2023 and 06/16/2023 FINDINGS: Right frontal approach ventricular shunt catheter is unchangedin position near the midline. The visualized tubing appears intact.Unchanged slitlike caliber of the ventricles. Basilar cisterns are patent. There isno acute intracranial hemorrhage. The angel-white differentiation ispreserved. There is no mass effect, midline shift or extra-axial fluid collection.The visualized paranasal sinuses and mastoid air cells are clear. Thevisualized orbits are unremarkable in appearance. IMPRESSION Unchanged caliber of the ventricles. Thank you for letting us participate in the care of this patient. If youare a health care provider and have any questions regarding this report,please contact the number below. For patients who have questions please contactthe health managed care liaison that requested your imaging first. Annita Dhaliwal MD IMG CT ORDERABLES * XR Shunt Series (09/23/2023 6:29 PM EDT) WORKSTATION ID [id number] RAD Anatomical Region Laterality Modality N/A Digital Radiogra phy Impressions 09/23/2023 7:12 PM EDT Right ventriculopleural shunt without kink or discontinuity identified. Thank you for letting us participate in the care of this patient. ??If you are a health care provider and have any questions regarding this report, please contact the number below. ??For patients who have questions please contact the health managed care liaison that requested your imaging first. ? Electronically signed by: Ovidio Osborne MD, [facility] ??([phone]), at 09/23/2023 7:12 PM Narrative 09/23/2023 7:12 PM EDT EXAMINATION: XR SHUNT SERIES CLINICAL HISTORY: Increasing headache with swelling and erythema to right posterior head. ??Subjective fevers, chills, body aches TECHNIQUE: Shunt series, 6 views COMPARISON: Shunt series 07/02/2023, CT chest abdomen pelvis 07/27/2023 FINDINGS: Right ventriculopleural shunt catheter. The proximal catheter tip terminates in the expected region of the right lateral ventricle. Tubing descends along the right neck and enters the right hemithorax, distal tip appearing to terminate in the pleural space at the right lung base. No appreciable catheter kink or discontinuity. Retained/abandoned catheter fragments in the right neck and anterior hemithorax. Right frontal craniotomy. Lungs are clear. No pleural fluid collection. Normal cardiomediastinal silhouette. Nonobstructive bowel gas pattern. Surgical clips in the right upper quadrant and left hemiabdomen. No acute osseous abnormality. Procedure Note Ovidio Osborne MD - 09/23/2023 EXAMINATION: XR SHUNT SERIES CLINICAL HISTORY: Increasing headache with swelling and erythema toright posterior head. Subjective fevers, chills, body aches TECHNIQUE: Shunt series, 6 views COMPARISON: Shunt series 07/02/2023, CT chest abdomen pelvis 07/27/2023 FINDINGS: Right ventriculopleural shunt catheter. The proximal catheter tipterminates in the expected region of the right lateral ventricle. Tubing descends alongthe right neck and enters the right hemithorax, distal tip appearing toterminate in the pleural space at the right lung base. No appreciable catheter kinkor discontinuity. Retained/abandoned catheter fragments in the right neckand anterior hemithorax. Right frontal craniotomy. Lungs are clear. No pleuralfluid collection. Normal cardiomediastinal silhouette. Nonobstructive bowelgas pattern. Surgical clips in the right upper quadrant and left hemiabdomen.No acute osseous abnormality. IMPRESSION Right ventriculopleural shunt without kink or discontinuity identified. Thank you for letting us participate in the care of this patient. If youare a health care provider and have any questions regarding this report,please contact the number below. For patients who have questions please contactthe health managed care liaison that requested your imaging first. Electronically signed by: Ovidio Osborne MD, [facility]([phone]), at 09/23/2023 7:12 PM Primo Story APRN IMG DX ORDERABLES * Prothrombin Time (09/23/2023 6:10 PM EDT) Prothrombin Time 11.7 9.4 - 12.5 sec [facility] International Normalization Ratio 1.0 [facility] Comment: An INR <2.0 indicates adequate procoagulant activity for hemostasis in most patients without underlying bleeding disorders, though the INR may not adequately reflect hemostatic capacity in patients with liver disease and synthetic impairment. The recommended target INR range for therapeutic anticoagulation is 2.0 ? 3.0 for most applications, though lower and higher ranges may be appropriate depending on clinical circumstances. Blood Venous Draw / Unknown 09/23/2023 6:10 PM EDT 09/23/2023 6:22 PM EDT Narrative Resulting Agency Comment Spec In Lab Annita Dhaliwal MD HEMATOLOGY ORDERABLE S [facility] [place] [address] * APTT (09/23/2023 6:10 PM EDT) [facility] Partial Thromboplastin Time 35 25 - 37 sec [facility] Comment: The PTT is NOT appropriate for heparin monitoring. Use the Anti-Xa level for heparin monitoring (HEP UFH) or LMWH monitoring (HEP LMW). A PTT less than 37 seconds generally indicates adequate hemostasis. Blood Venous Draw / Unknown 09/23/2023 6:10 PM EDT 09/23/2023 6:22 PM EDT Narrative Resulting Agency Comment Spec In Lab Annita Dhaliwal MD HEMATOLOGY ORDERABLE S Performing Organization Address City/[facility]/ZIP Co de Phone Number [facility] [place] [address] * Gold Tube HOLD (09/23/2023 6:10 PM EDT) [facility] Gold Hold Sample in lab. [facility] Blood Venous Draw / Unknown 09/23/2023 6:10 PM EDT 09/23/2023 6:25 PM EDT Primo Story APRN CHEMISTRY ORDERABLES Performing Organization Address City/[facility]/ZIP Co de Phone Number [facility] [place] [address] * Blue Tube HOLD (09/23/2023 6:10 PM EDT) [facility] Blue Hold Sample in lab. [facility] Blood Venous Draw / Unknown 09/23/2023 6:10 PM EDT 09/23/2023 6:22 PM EDT Primo Story APRN HEMATOLOGY ORDERABLE S Performing Organization Address City/[facility]/ZIP Co de Phone Number [facility] [place] [address] * (ABNORMAL) Differential, Automated (09/23/2023 6:10 PM EDT) Neutrophil % 66.3 % [facility] Neutrophil Absolute 7.15(H) 1.70 - 6.10 x10(3)/[facility] LAB[facility] Lymph % 28.3 % [facility] Lymphocytes Abs 3.1 0.9 - 3.2 x10(3)/[facility] LABOR[facility] Monocyte % 3.5 % [facility] Monocyte Abs 0.4 0.3 - 0.9 x10(3)/[facility]OR[facility] Eos % 1.0 % [facility] Eosinophils Abs 0.1 0.0 - 0.4 x10(3)/[facility] LABOR[facility] Basophil % 0.7 % [facility] Baso Absolute 0.1 0.0 - 0.1 x10(3)/[facility] LABOR[facility] Immature Gran % 0.20 % [facility] Comment: Immature granulocytes(IG's)percentage and absolute count will include metamyelocytes, myelocytes, and promyelocytes. Blood smears from CBCs yielding IG's will be scanned manually for concordance. If this scan disagrees with the automated IG or if promyelocytes are noted, a manual differential will be performed. Immature Gran Absolute 0.02 0.00 - 0.04 x10(3)/[facility] LABORATORY Blood 09/23/2023 6:10 PM EDT 09/23/2023 6:22 PM EDT Narrative Resulting Agency Comment Spec In Lab Primo Story BOILER MECHANIC HEMATOLOGY ORDERABLE S [facility] [place] [address] * (ABNORMAL) Hemogram (09/23/2023 6:10 PM EDT) White Blood Cell 10.8(H) 4.0 - 9.5 x10(3)/[facility] LABORAT[facility] Red Blood Cell 5.90(H) 4.58 - 5.54 x10(6)/mc L [facility] Hemoglobin 17.0(H) 13.7 - 16.5 g/dL [facility] Hematocrit 49.4(H) 40.5 - 48.5 % [facility] Mean Cell Volume 83.7 82.9 - 93.1 fL [facility] Mean Cell Hemoglobin 28.8 27.5 - 32.1 pg [facility] Mean Cell Hemoglobin Concentration 34.4 32.0 - 35.7 g/dL [facility] Platelet 227 145 - 357 x10(3)/mc L [facility] RDW Standard Deviation 39.8 36.0 - 45.0 fL [facility] RDW coefficient of variation 13.0 11.4 - 13.8 % [facility] Mean Platelet Volume 9.1 7.6 - 12.9 fL [facility] NRBC% auto 0.0 % [facility] NRBC Absolute 0.000 0.000 - 0.000 x10(3)/mc L [facility] Blood 09/23/2023 6:10 PM EDT 09/23/2023 6:22 PM EDT Narrative Resulting Agency Comment Spec In Lab Primo Story APRN HEMATOLOGY ORDERABLE S Performing Organization Address [facility]/ZIP Co de Phone Number [facility] [place] [address] * CRP, acute inflammation (09/23/2023 6:10 PM EDT) C-Reactive Protein 3.6 <=4.9 mg/L [facility] Blood 09/23/2023 6:10 PM EDT 09/23/2023 6:22 PM EDT Narrative Resulting Agency Comment Spec In Lab Primo Story APRN CHEMISTRY ORDERABLES Performing Organization Address City/[facility]/ZIP Co de Phone Number [facility] [place] [address] * (ABNORMAL) Sedimentation rate (09/23/2023 6:10 PM EDT) Sedimentation Rate Automated 47(H) 2 - 37 mm/hr [facility] Comment: Effective February 02, 2019 new capillary photometric technology has resulted in a change in reference ranges. It is recommended that each ESR result be reviewed with its own age appropriate reference range. Blood 09/23/2023 6:10 PM EDT 09/23/2023 6:22 PM EDT Narrative Resulting Agency Comment Spec In Lab Primo Story APRN HEMATOLOGY ORDERABLE S [facility] [place] [address] * Basic Metabolic Panel (non-fasting) (09/23/2023 6:10 PM EDT) Pathologist [facility] Glucose 167 65 - 199 mg/dL [facility] Comment:Diabetes: >=200 mg/d L plus symptoms Blood Urea Nitrogen 14 10 - 20 mg/dL [facility] Creatinine 1.05 0.80 - 1.50 mg/dL [facility] Sodium 137 135 - 145 mmol/L [facility] Potassium 3.8 3.5 - 5.0 mmol/L [facility] Comment: Please note: ??Patients with WBC >100,000 may have falsely elevated Potassium levels. ??For accurate Potassium quantification in these patients send serum separator tube (gold top) for subsequent determinations. ??Contact the Clinical Chemistry Laboratory if there are any questions. Chloride 100 98 - 107 mmol/L [facility] Carbon Dioxide 22 22 - 31 mmol/L [facility] Anion Gap 15 5 - 15 mmol/L [facility] Calcium 9.9 8.5 - 10.5 mg/dL [facility] Est Glomerular Filtration Rate 86 >=60 mL/min/1. 73 m?? [facility] Comment: This patient's estimated GFR was [...] urine creatinine clearance. Assignment of CKD stage 1-5 for patients with an eGFR near the transition point between stages may be based on clinical assessment of muscle mass and symptoms in addition to eGFR. Blood 09/23/2023 6:10 PM EDT 09/23/2023 6:22 PM EDT Narrative Resulting Agency Comment Spec In Lab Primo Story APRN CHEMISTRY ORDERABLES Performing Organization Address City/[facility]/ZIP Co de Phone Number [facility] [place] [address] * Blood culture (09/23/2023 6:10 PM EDT) Blood Culture No growth at 5 days. [facility] Blood 09/23/2023 6:10 PM EDT 09/23/2023 7:02 PM EDT Comment:L ac Narrative Resulting Agency Comment Spec In Lab Primo Story APRN MICROBIOLOGY - BLOOD ORDERABLES Performing Organization Address City/[facility]/ZIP Co de Phone Number [facility] [place] [address] * Blood culture (09/23/2023 12:05 AM EDT) Blood Culture No growth at 5 days. [facility] Blood STRUCTURE OF LEFT FOREARM / Unknown 09/23/2023 12:05 AM EDT 09/24/2023 1:39 AM EDT Narrative Resulting Agency Comment Spec In Lab Primo Story APRN MICROBIOLOGY - BLOOD ORDERABLES Performing Organization Address City/[facility]/ZIP Co de Phone Number [facility] [place] [address] documented in this encounter Visit Diagnoses Diagnosis Shunt malfunction- Primary Mechanical complication due to other implant and internal device, not elsewhere classified Nonintractable headache, unspecified chronicity pattern, unspecified headache type Chronic migraine without aura without status migrainosus, not intractable Chronic migraine without aura, without mention of intractable migraine without mention of status migrainosus Hydrocephalus, unspecified type Hydrocephalus, unspecified type documented in this encounter Admitting Diagnoses Diagnosis Shunt malfunction Mechanical complication due to other implant and internal device, not elsewhere classified documented in this encounter Administered Medications Inactive Administered Medications - up to 3 most recent administrations Medication Order MAR Action Action Date Dose Rate Site acetaminophen (Tylenol) (32.02 mg/mL) oral liquid 1,000 mg 1,000 mg, Oral, EVERY 6 HOURS PRN, Starting on 10/03/23 at 1445, Until 10/10/23 at 1938, Fever, - Maximum dose of acetaminophen is 4,000 mg from all sources in 24 hours. - Unless otherwise specified, when ordered PRN for pain, acetaminophen should be given first if other PRN pain medications are ordered., Routine acetaminophen (Tylenol) suppository 650 mg 650 mg, Rectal, EVERY 6 HOURS PRN, Starting on 10/03/23 at 1445, Until 10/10/23 at 1938, Pain, - Maximum dose of acetaminophen is 4,000 mg from all sources in 24 hours. - Unless otherwise specified, when ordered PRN for pain, acetaminophen should be given first if other PRN pain medications are ordered., Routine acetaminophen (Tylenol) tablet 975 mg 975 mg, Oral, EVERY 6 HOURS SCHEDULED, First dose on Sandra 09/24/23 at 0030, Until Discontinued, - Maximum dose of acetaminophen is 4,000 mg from all sources in 24 hours. - Unless otherwise specified, when ordered PRN for pain, acetaminophen should be given first if other PRN pain medications are ordered., Routine Given 10/03/2023 11:54 AM EDT 975 mg Given 10/03/2023 5:12 AM EDT 975 mg Given 10/02/2023 11:26 AM EDT 975 mg acetaminophen (Tylenol) tablet 975 mg 975 mg, Oral, EVERY 6 HOURS PRN, Starting on 10/03/23 at 1445, Until 10/10/23 at 1938, Pain, - Maximum dose of acetaminophen is 4,000 mg from all sources in 24 hours. - Unless otherwise specified, when ordered PRN for pain, acetaminophen should be given first if other PRN pain medications are ordered., Routine Given 10/09/2023 7:55 PM EDT 975 mg ceFAZolin (Ancef) 2 g vial attach to sodium chloride 0.9% 100 mL Mini-Bag Plus 2 g, Intravenous, ONCE, 1 dose, On Thu10/02/23 at 1145, Administer over 30 Minutes, Have at bedside for EVD replacement 10/02/23, Indication for (Active or Suspected): Prophylaxis New Bag 10/02/2023 11:51 AM EDT 2 g 200 mL /hr cefTRIAXone (Rocephin) 2 g vial attach to sodium chloride 0.9% 50 mL Mini-Bag Plus 2 g, Intravenous, EVERY 12 HOURS, First dose on Sandra 09/24/23 at 0230, Until Discontinued, Administer over 30 Minutes, Indication for (Active or Suspected): TUBE TEST TECHNICIAN/Meningitis New Bag 09/24/2023 1:31 PM EDT 2 g 100 mL/hr New Bag 09/24/2023 2:30 AM EDT 2 g 100 mL/hr diphenhydrAMINE (Benadryl) (50 mg/mL) injection 12.5 mg 12.5 mg, Intravenous, EVERY 12 HOURS, First dose on Thu09/24/23 at 1500, Until Discontinued, Administer prior to each vancomycin dose, Routine Given 09/24/2023 2:22 PM EDT 12.5 mg diphenhydrAMINE (Benadryl) (50 mg/mL) injection 12.5 mg 12.5 mg, Intravenous, ONCE, 1 dose, On Thu09/24/23 at 0315, Give prior to 2 g vanco dose, Routine Given 09/24/2023 4:50 AM EDT 12.5 mg diphenhydrAMINE (Benadryl) (50 mg/mL) injection 12.5 mg 12.5 mg, Intravenous, ONCE, 1 dose, On Sandra 09/24/23 at 1645, Routine Given 09/24/2023 4:44 PM EDT 12.5 mg diphenhydrAMINE (Benadryl) (50 mg/mL) injection 25 mg 25 mg, Intravenous, EVERY 12 HOURS, First dose (after last modification) on Thu09/25/23 at 0300, Until Discontinued, Administer prior to each vancomycin dose, Routine Given 10/08/2023 4:20 AM EDT 25 mg Given 10/07/2023 5:28 PM EDT 25 mg Given 10/07/2023 4:27 AM EDT 25 mg diphenhydrAMINE (Benadryl) (50 mg/mL) injection 25 mg 25 mg, Intravenous, ONCE, 1 dose, On Thu10/02/23 at 1715, Routine Given 10/02/2023 4:57 PM EDT 25 mg diphenhydrAMINE (Benadryl) capsule 25 mg 25 mg, Oral, ONCE, 1 dose, On Thu09/27/23 at 1645, Routine Given 09/27/2023 4:30 PM EDT 25 mg docusate sodium (Colace) capsule 100 mg 100 mg, Oral, 2 TIMES DAILY, First dose on Sandra 09/24/23 at 0230, Until Discontinued, Routine Given 10/09/2023 8:05 AM EDT 100 mg Given 10/07/2023 9:10 PM EDT 100 mg Given 10/07/2023 8:32 AM EDT 100 mg heparin (porcine) (5,000 units/1 mL) subcutaneous injection 5,000 Units 5,000 Units, Subcutaneous, EVERY 12 HOURS SCHEDULED (2 times per day), First dose on Thu09/26/23 at 0915, Until Discontinued, Routine Given 10/02/2023 8:27 AM EDT 5,000 Units Given 10/01/2023 8:19 PM EDT 5,000 Units Given 10/01/2023 8:55 AM EDT 5,000 Units heparin (porcine) (5,000 units/1 mL) subcutaneous injection 5,000 Units 5,000 Units, Subcutaneous, EVERY 12 HOURS SCHEDULED (2 times per day), First dose on Thu10/04/23 at 2100, Until Discontinued, Routine Given 10/07/2023 8:32 AM EDT 5,000 Units Given 10/06/2023 8:47 PM EDT 5,000 Units Given 10/06/2023 8:34 AM EDT 5,000 Units heparin (porcine) (5,000 units/1 mL) subcutaneous injection 5,000 Units 5,000 Units, Subcutaneous, EVERY 12 HOURS SCHEDULED (2 times per day), 1 dose, First dose (after last modification) on Thu10/07/23 at 2100, Routine Given 10/07/2023 9:10 PM EDT 5,000 Units Abdominal Tissue HYDROmorphone (Dilaudid) (0.5 mg/0.5 mL) injection syringe 0.2 mg 0.2 mg, Intravenous, EVERY 4 HOURS PRN, Starting on 09/28/23 at 1638, Until 10/10/23 at 1938, Pain, Rescue dose, For moderate or severe pain (6-10) unrelieved at least 30 minutes after initial oral PRN dose was administered Max 3 doses/24 hours. If pain still unrelieved after 2nd rescue dose within 24 hours, contact provider., Routine Given 10/02/2023 8:30 AM EDT 0.2 mg Given 09/29/2023 8:16 PM EDT 0.2 mg HYDROmorphone (Dilaudid) (2 mg/mL) multi-dose injection solution 0.2 mg 0.2 mg, Intravenous, EVERY 10 MIN PRN, Starting on Sandra 09/24/23 at 1134, Until Sandra 09/24/23 at 1257, Pain, For Mild to Moderate Pain (1-5 out of 10), Hold for respiratory rate less than 10 per minute. Maximum dose 3 mg over one hour including administrations in the OR. If multiple pain medications are ordered, start with HYDROmorphone or morphine and use fentaNYL for breakthrough pain., PACU Recovery, Routine Given 09/24/2023 11:43 AM EDT 0.2 mg HYDROmorphone (Dilaudid) (2 mg/mL) multi-dose injection solution 0.4 mg 0.4 mg, Intravenous, EVERY 10 MIN PRN, Starting on Sandra 09/24/23 at 1134, Until Sandra 09/24/23 at 1257, Pain, For Moderate to Severe Pain (6-10 out of 10), Hold for respiratory rate less than 10 per minute. Maximum dose 3 mg over one hour including administrations in the OR. If multiple pain medications are ordered, start with HYDROmorphone or morphine and use fentaNYL for breakthrough pain., PACU Recovery, Routine Given 09/24/2023 12:05 PM EDT 0.4 mg hydrOXYzine (Atarax) tablet 25 mg 25 mg, Oral, NIGHTLY, First dose on Sandra 09/24/23 at 2100, Until Discontinued, Routine Given 10/09/2023 8:46 PM EDT 25 mg Given 10/08/2023 8:06 PM EDT 25 mg Given 10/07/2023 9:10 PM EDT 25 mg lactated Ringers 1,000 mL IV bolus at 2,000 mL/hr, Intravenous, ONCE, 1 dose, On Thu09/23/23 at 2110 New Bag 09/23/2023 9:09 PM EDT 2000 mL/hr levothyroxine (Synthroid) tablet 25 mcg 25 mcg, Oral, DAILY, First dose on Sandra 09/24/23 at 0600, Until Discontinued, Routine Given 10/10/2023 6:23 AM EDT 25 mcg Given 10/09/2023 8:05 AM EDT 25 mcg Given 10/08/2023 4:21 AM EDT 25 mcg lidocaine (Xylocaine) 1% (10 mg/mL) injection 100 mg 100 mg (10 mL), Subcutaneous, ONCE, 1 dose, On Sandra 09/24/23 at 0530, Routine Given 09/24/2023 6:07 AM EDT 100 mg lidocaine (Xylocaine) 1% (10 mg/mL) injection 30 mg 30 mg (3 mL), Subcutaneous, ONCE PRN, 1 dose, Starting on Thu10/02/23 at 0836, Until 10/10/23 at 1938, drain suture placement, Routine melatonin tablet 3 mg 3 mg, Oral, NIGHTLY PRN, Starting on Thu10/06/23 at 1947, Until Thu10/10/23 at 1938, Sleep, Routine Given 10/09/2023 8:50 PM EDT 3 mg Given 10/06/2023 8:48 PM EDT 3 mg melatonin tablet 6 mg 6 mg, Oral, NIGHTLY, First dose on Thu09/25/23 at 0030, Until Discontinued, Routine Given 10/08/2023 8:06 PM EDT 6 mg Given 10/07/2023 9:10 PM EDT 6 mg Given 10/06/2023 8:47 PM EDT 6 mg metoprolol succinate XL (Toprol-XL) tablet 25 mg 25 mg, Oral, DAILY, First dose on Sandra 09/24/23 at 0900, Until Discontinued, DO NOT CRUSH OR OPEN, Routine Given 10/10/2023 9:24 AM EDT 25 mg Given 10/09/2023 8:06 AM EDT 25 mg Given 10/08/2023 8:48 AM EDT 25 mg metroNIDAZOLE (Flagyl) 500 mg in sodium chloride 0.9% 100 mL infusion 500 mg, Intravenous, EVERY 8 HOURS, First dose on Sandra 09/24/23 at 0230, Until Discontinued, Administer over 30 Minutes, Indication for (Active or Suspected): Anaerobic infection-TUBE TEST TECHNICIAN New Bag 09/24/2023 3:20 AM EDT 500 mg 200 mL/hr ondansetron (pf) (Zofran) (2 mg/mL) injection 4 mg 4 mg, Intravenous, EVERY 8 HOURS PRN, Starting on 09/28/23 at 1636, Until 10/10/23 at 1938, Nausea oxyCODONE (Roxicodone) tablet 5 mg 5 mg, Oral, EVERY 4 HOURS PRN, Starting on Thu09/24/23 at 0315, Until 10/10/23 at 1938, Pain, Routine Given 10/09/2023 8:47 PM EDT 5 mg Given 10/09/2023 5:47 PM EDT 5 mg Given 10/06/2023 8:47 PM EDT 5 mg pantoprazole EC (Protonix) tablet 40 mg 40 mg, Oral, DAILY, First dose on Sandra 09/24/23 at 0900, Until Discontinued Given 10/10/2023 9:24 AM EDT 40 mg Given 10/09/2023 8:05 AM EDT 40 mg Given 10/08/2023 8:47 AM EDT 40 mg potassium chloride ER (Klor-Con M) crystal tablet 20 mEq 20 mEq, Oral, EVERY 4 HOURS PRN, Starting on Thu09/24/23 at 0210, Until 10/10/23 at 1938, hypokalemia, Administer for serum potassium (mMol/L) of 3.9 - 4 potassium chloride ER particle/crystal tablets (Klor-Con M) may be broken in half and each half swallowed separately. Tablets can be dissolved in ~4 ounces of water; allow ~2 minutes to dissolve, stir well and drink immediately. Do not crush, chew, or suck on tablet., Routine Given 10/08/2023 2:54 AM EDT 20 mEq potassium chloride ER (Klor-Con M) crystal tablet 40 mEq 40 mEq, Oral, EVERY 4 HOURS PRN, Starting on Sandra 09/24/23 at 0210, Until 10/10/23 at 1938, hypokalemia, Administer for serum potassium (mMol/L) of 3.6 - 3.8 potassium chloride ER particle/crystal tablets (Klor-Con M) may be broken in half and each half swallowed separately. Tablets can be dissolved in ~4 ounces of water; allow ~2 minutes to dissolve, stir well and drink immediately. Do not crush, chew, or suck on tablet., Routine senna-docusate (Pericolace) 8.6-50 mg per tablet 2 tablet 2 tablet, Oral, 2 TIMES DAILY, First dose on Thu09/24/23 at 0230, Until Discontinued, Hold for loose stool. , Routine Given 09/24/2023 8:13 PM EDT 2 tablets sertraline (Zoloft) tablet 200 mg 200 mg, Oral, DAILY, First dose on Thu09/24/23 at 0900, Until Discontinued, Routine Given 10/10/2023 9:24 AM EDT 200 mg Given 10/09/2023 8:05 AM EDT 200 mg Given 10/08/2023 8:47 AM EDT 200 mg sodium chloride 0.9 % (flush) (BD PosiFlush Normal Saline 0.9) flush 5 mL 5 mL, Intravenous, 2 TIMES DAILY, First dose on Thu09/24/23 at 0030, Until Discontinued, Recovery (Recovery-Hospital Unit), Routine Given 10/10/2023 9:25 AM EDT 5 mLs Given 10/09/2023 8:47 PM EDT 5 mLs Given 10/09/2023 8:06 AM EDT 5 mLs sodium chloride 0.9% infusion 100 mL/hr, Intravenous, CONTINUOUS, Starting on Sandra 09/24/23 at 0000, Until 09/26/23 at 0909 New Bag 09/26/2023 2:56 AM EDT 100 mL/hr 100 mL/hr New Bag 09/25/2023 3:18 PM EDT 100 mL/hr 100 mL/hr Rate/Dose Verify 09/25/2023 10:42 AM EDT 100 mL/hr 100 mL /hr sodium chloride 0.9% infusion 100 mL/hr, Intravenous, CONTINUOUS, Starting on Thu10/08/23 at 0000, Until Thu10/08/23 at 1730 Rate/Dose Verify 10/08/2023 6:00 AM EDT 100 mL/hr 100 mL/hr Rate/Dose Verify 10/08/2023 4:00 AM EDT 100 mL/hr 100 mL/ hr Rate/Dose Verify 10/08/2023 2:00 AM EDT 100 mL/hr 100 mL/ hr sodium chloride 0.9% infusion 100 mL/hr, Intravenous, CONTINUOUS, Starting on Thu10/09/23 at 0000, Until Thu10/09/23 at 1718 New Bag 10/09/2023 12:22 AM EDT 100 mL/hr 100 mL/hr sodium chloride tablet 1 g 1 g, Oral, 3 TIMES DAILY, First dose on Thu10/04/23 at 2100, Until Discontinued, Routine Given 10/10/2023 2:45 PM EDT 1 g Given 10/10/2023 9:24 AM EDT 1 g Given 10/09/2023 8:47 PM EDT 1 g testosterone cypionate (DepoTESTOSTERONE Cypionate) (200mg/mL) injection 250 mg 250 mg, Intramuscular, ONCE, 1 dose, On Thu10/07/23 at 0900, Routine Given 10/07/2023 3:38 PM EDT 200 mg topiramate (Topamax) tablet 25 mg 25 mg, Oral, DAILY, First dose on Thu09/24/23 at 0900, Until Discontinued, DO NOT SPLIT, CRUSH OR OPEN, Routine Given 10/10/2023 9:24 AM EDT 25 mg Given 10/09/2023 8:05 AM EDT 25 mg Given 10/08/2023 8:47 AM EDT 25 mg vancomycin (Vancocin) 1.25 gram in dextrose 5% 250 mL infusion 1.25 g, Intravenous, at 100 mL/hr, EVERY 12 HOURS, First dose on Thu09/24/23 at 1500, Until Discontinued, Administer diphenhydramine prior to administering vancomycin Maximum infusion rate is 1 gram/hour. If flushing of the face, neck, upper body, arms, and/or back occurs decrease infusion rate by 50% to reduce the severity of symptoms. This medication may have an associated drug lab level. Please see MAR for scheduled level. 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 New Bag 09/24/2023 2:23 PM EDT 1.25 g 100 mL/hr vancomycin (Vancocin) 1.25 gram in dextrose 5% 250 mL infusion 1.25 g, Intravenous, at 100 mL/hr, EVERY 12 HOURS, First dose (after last modification) on Thu09/25/23 at 0300, Until Discontinued, Administer diphenhydramine prior to administering vancomycin Maximum infusion rate is 1 gram/hour. If flushing of the face, neck, upper body, arms, and/or back occurs decrease infusion rate by 50% to reduce the severity of symptoms. This medication may have an associated drug lab level. Please see MAR for scheduled level. 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 New Bag 10/08/2023 5:18 AM EDT 1.25 g 100 mL/hr New Bag 10/07/2023 6:55 PM EDT 1.25 g 100 mL/hr New Bag 10/07/2023 5:05 AM EDT 1.25 g 100 mL/hr vancomycin (Vancocin) 2 gram in sodium chloride 0.9% 500 mL infusion 2 g, Intravenous, at 125 mL/hr, ONCE, 1 dose, On Thu09/24/23 at 0240, Slowing down infusion rate due to previous reactions, please give dose of IV diphenhydramine prior to administering vancomycin Maximum infusion rate is 1 gram/hour. If flushing of the face, neck, upper body, arms, and/or back occurs decrease infusion rate by 50% to reduce the severity of symptoms. This medication may have an associated drug lab level. Please see MAR for scheduled level. 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 New Bag 09/24/2023 4:55 AM EDT 2 g 125 mL/hr documented in this encounter Active and Recently Administered Medications Times are shown in EDT. Scheduled Medication Order 10/08/2023 10/09/2023 10/10/2023 diphenhydrAMINE (Benadryl) (50 mg/mL) injection 25 mg (CANCELED)(Linked Group 1) 25 mg, Intravenous, EVERY 12 HOURS, First dose (after last modification) on Thu09/25/23 at 0300, Until Discontinued, Administer prior to each vancomycin dose, Routine 0420 (Given - Provider: Nelly German RN)1600 (Not Given - Provider: Dianelys Call RN - Reason: Medication Discontinued) docusate sodium (Colace) capsule 100 mg 100 mg, Oral, 2 TIMES DAILY, First dose on Thu09/24/23 at 0230, Until Discontinued, Routine 0900 (Not Given - Provider: Dianelys Call RN - Reason: Patient/family refused)2008 (Not Given - Provider: Mitchell Vizcarra RN - Reason: Patient/family refused) 0805 (Given - Provider: Dianelys Call RN)1222 (APR Hold - Provider: Admin Adt - Reason: Transfer to a Procedural area)170 (APR Unhold - Provider: Admin Adt)2041 (Not Given - Provider: Mitchell Vizcarra RN - Reason: Patient/family refused) 0900 (Not Given - Provider: Emma Horta RN - Reason: Patient/family refused) hydrOXYzine (Atarax) tablet 25 mg 25 mg, Oral, NIGHTLY, First dose on Thu09/24/23 at 2100, Until Discontinued, Routine 2005 (Given - Provider: Mitchell Vizcarra RN) 1222 (APR Hold - Provider: Admin Adt - Reason: Transfer to a Procedural area)170 (APR Unhold - Provider: Admin Adt)2045 (Given - Provider: Mitchell Vizcarra, EDWARD) levothyroxine (Synthroid) tablet 25 mcg 25 mcg, Oral, DAILY, First dose on Thu09/24/23 at 0600, Until Discontinued, Routine 042 (Given - Provider: Nelly German RN - Comment: given early, pt has proc this morning)0600 (Canceled Entry - Provider: Nelly German RN - Reason: See comment) 0521 (Hold - Provider: Mitchell Vizcarra RN - Reason: NPO - Comment: Pending surgical procedure)0805 (Given - Provider: Dianelys Call RN)1222 ([facility] Hold - Provider: Admin Adt - Reason: Transfer to a Procedural area)170 ([facility] Unhold - Provider: Admin Adt) 0623 (Given - Provider: Mitchell Vizcarra RN) melatonin tablet 6 mg (CANCELED) 6 mg, Oral, NIGHTLY, First dose on Thu09/25/23 at 0030, Until Discontinued, Routine 2005 (Given - Provider: Mitchell Vizcarra RN) 1222 ([facility] Hold - Provider: Admin Adt - Reason: Transfer to a Procedural area)170 ([facility] Unhold - Provider: Admin Adt) metoprolol succinate XL (Toprol-XL) tablet 25 mg 25 mg, Oral, DAILY, First dose on Thu09/24/23 at 0900, Until Discontinued, DO NOT CRUSH OR OPEN, Routine 0848 (Given - Provider: Dianelys Call RN) 0806 (Given - Provider: Dianelys Call RN)122 ([facility] Hold - Provider: Admin Adt - Reason: Transfer to a Procedural area)170 ([facility] Unhold - Provider: Admin Adt) 0924 (Given - Provider: Emma Horta, EDWARD) pantoprazole EC (Protonix) tablet 40 mg 40 mg, Oral, DAILY, First dose on Thu09/24/23 at 0900, Until Discontinued 0847 (Given - Provider: Dianelys Call RN) 0805 (Given - Provider: Dianelys Call RN)1222 ([facility] Hold - Provider: Admin Adt - Reason: Transfer to a Procedural area)170 ([facility] Unhold - Provider: Admin Adt) 0924 (Given - Provider: Emma Horta, EDWARD) sertraline (Zoloft) tablet 200 mg 200 mg, Oral, DAILY, First dose on Thu09/24/23 at 0900, Until Discontinued, Routine 0847 (Given - Provider: Dianelys Call RN) 0805 (Given - Provider: Dianelys Call RN)1222 ([facility] Hold - Provider: Admin Adt - Reason: Transfer to a Procedural area)1706 ([facility] Unhold - Provider: Admin Adt) 0924 (Given - Provider: Emma Horta, EDWARD) sodium chloride 0.9 % (flush) (BD PosiFlush Normal Saline 0.9) flush 5 mL 5 mL, Intravenous, 2 TIMES DAILY, First dose on Thu09/24/23 at 0030, Until Discontinued, Recovery (Recovery-Hospital Unit), Routine 0849 (Given - Provider: Dianelys Call RN)2005 (Given - Provider: Mitchell Vizcarra RN) 08 (Given - Provider: Dianelys Call RN)2046 (Given - Provider: Mitchell Vizcarra, EDWARD) 0925 (Given - Provider: Emma Horta, EDWARD) sodium chloride tablet 1 g 1 g, Oral, 3 TIMES DAILY, First dose on Thu10/04/23 at 2100, Until Discontinued, Routine 0847 (Given - Provider: Dianelys Call RN)1602 (Given - Provider: Dianelys Call RN)2005 (Given - Provider: Mitchell Vizcarra RN) 0805 (Given - Provider: Dianelys Call RN)1222 (APR Hold - Provider: Admin Adt - Reason: Transfer to a Procedural area)1500 (Automatically Held - Provider: Admin Adt)1706 (APR Unhold - Provider: Admin Adt)1719 (Given - Provider: Dianelys Call RN)204 (Given - Provider: Mitchell Vizcarra, EDWARD) 0924 (Given - Provider: Emma Horta, EDWARD)1445 (Given - Provider: Tatiana Bernardo RN) topiramate (Topamax) tablet 25 mg 25 mg, Oral, DAILY, First dose on Thu09/24/23 at 0900, Until Discontinued, DO NOT SPLIT, CRUSH OR OPEN, Routine 0847 (Given - Provider: Dianelys Call RN) 0805 (Given - Provider: Dianelys Call RN)1222 (APR Hold - Provider: Admin Adt - Reason: Transfer to a Procedural area)1706 (APR Unhold - Provider: Admin Adt) 0924 (Given - Provider: Emma Horta RN) vancomycin (Vancocin) 1.25 gram in dextrose 5% 250 mL infusion (CANCELED)(Linked Group 1) 1.25 g, Intravenous, at 100 mL/hr, EVERY 12 HOURS, First dose (after last modification) on Thu09/25/23 at 0300, Until Discontinued, Administer diphenhydramine prior to administering vancomycin Maximum infusion rate is 1 gram/hour. If flushing of the face, neck, upper body, arms, and/or back occurs decrease infusion rate by 50% to reduce the severity of symptoms. This medication may have an associated drug lab level. Please see MAR for scheduled level. 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 0518 (New Bag - Provider: Nelly German RN)0748 (Stopped - Provider: Nelly German RN) Continuous Medication Order 10/08/2023 10/09/2023 10/10/2023 sodium chloride 0.9% infusion (CANCELED)(Linked Group 2) 100 mL/hr, Intravenous, CONTINUOUS, Starting on Thu10/08/23 at 0000, Until Thu10/08/23 at 1730 0100 (New Bag - Provider: Nelly German RN)0200 (Rate/Dose Verify - Provider: Nelly German RN)0400 (Rate/Dose Verify - Provider: Nelly German RN)0600 (Rate/Dose Verify - Provider: Nelly German RN)1730 (Stopped - Provider: Dianelys Call, EDWARD) sodium chloride 0.9% infusion (CANCELED)(Linked Group 3) 100 mL/hr, Intravenous, CONTINUOUS, Starting on Thu10/09/23 at 0000, Until Thu10/09/23 at 1718 0022 (New Bag - Provider: Mitchell Vizcarra RN)1222 (APR Hold - Provider: Admin Adt - Reason: Transfer to a Procedural area)1706 (APR Unhold - Provider: Admin Adt)1718 (Stopped - Provider: Dianelys Call, EDWARD) PRN Medication Order 10/08/2023 10/09/2023 10/10/2023 acetaminophen (Tylenol) (32.02 mg/mL) oral liquid 1,000 mg(Linked Group 4) 1,000 mg, Oral, EVERY 6 HOURS PRN, Starting on 10/03/23 at 1445, Until 10/10/23 at 1938, Fever, - Maximum dose of acetaminophen is 4,000 mg from all sources in 24 hours. - Unless otherwise specified, when ordered PRN for pain, acetaminophen should be given first if other PRN pain medications are ordered., Routine 1222 ([facility] Hold - Provider: Admin Adt - Reason: Transfer to a Procedural area)170 ([facility] Unhold - Provider: Admin Adt)1954 (See Alternative - Provider: Mitchell Vizcarra RN) acetaminophen (Tylenol) suppository 650 mg(Linked Group 4) 650 mg, Rectal, EVERY 6 HOURS PRN, Starting on 10/03/23 at 1445, Until 10/10/23 at 1938, Pain, - Maximum dose of acetaminophen is 4,000 mg from all sources in 24 hours. - Unless otherwise specified, when ordered PRN for pain, acetaminophen should be given first if other PRN pain medications are ordered., Routine 1222 ([facility] Hold - Provider: Admin Adt - Reason: Transfer to a Procedural area)1705 ([facility] Unhold - Provider: Admin Adt)1954 (See Alternative - Provider: Mitchell Vizcarra, EDWARD) acetaminophen (Tylenol) tablet 975 mg(Linked Group 4) 975 mg, Oral, EVERY 6 HOURS PRN, Starting on 10/03/23 at 1445, Until 10/10/23 at 1938, Pain, - Maximum dose of acetaminophen is 4,000 mg from all sources in 24 hours. - Unless otherwise specified, when ordered PRN for pain, acetaminophen should be given first if other PRN pain medications are ordered., Routine 1222 ([facility] Hold - Provider: Admin Adt - Reason: Transfer to a Procedural area)1705 ([facility] Unhold - Provider: Admin Adt)1954 (Given - Provider: Mitchell Vizcarra RN - Comment: low grade temp) bisacodyL (Dulcolax) suppository 10 mg 10 mg, Rectal, DAILY PRN, Starting on Sandra 09/24/23 at 0210, Until 10/10/23 at 1938, Constipation, Administer if needed per patient's routine or if no bowel movement within 48 hours to achieve: (1) One bowel movement every 48 hours, AND (2) Without straining. If multiple PRN bowel medications ordered, start with magnesium hydroxide, then bisacodyL. Multiple medications may be given concomitantly for constipation., Routine 1222 ([facility] Hold - Provider: Admin Adt - Reason: Transfer to a Procedural area)1706 ([facility] Unhold - Provider: Admin Adt) BUPivacaine-EPINEPHrine (Marcaine-Epinephrine) 0.25 %-1:200,000 injection (CANCELED) PRN, Starting on Thu10/09/23 at 1341, Until Thu10/09/23 at 1706, Intra-Operative (Intra-Procedure), Routine 1341 (Given - Provider: Laila Ricci MD) calcium carbonate (TUMS) chewable tablet 500 mg 500 mg, Oral, EVERY 6 HOURS PRN, Starting on Sandra 09/24/23 at 0010, Until 10/10/23 at 1938, Abdominal cramping, Routine 1222 ([facility] Hold - Provider: Admin Adt - Reason: Transfer to a Procedural area)1706 ([facility] Unhold - Provider: Admin Adt) gelatin adsorbable 12-7 mm sponge (CANCELED) PRN, Starting on Thu10/09/23 at 1407, Until Thu10/09/23 at 1706, Intra-Operative (Intra-Procedure) 1407 (Given - Provider: Laila Ricci MD - Comment: Gelfoam soaked in 5,000 units of thrombin. Used PRN throughout case) hydrALAZINE (Apresoline) (20 mg/mL) injection 10 mg 10 mg, Intravenous, EVERY 2 HOURS PRN, Starting on Sandra 09/24/23 at 0010, Until 10/10/23 at 1938, High Blood Pressure, For systolic blood pressure (SBP) greater than 160 mmHg. May repeat once in 15 minutes if blood pressure remains greater than 160 mmHg. Use if labetaloL ineffective after 2 doses, Routine 1222 ([facility] Hold - Provider: Admin Adt - Reason: Transfer to a Procedural area)1706 ([facility] Unhold - Provider: Admin Adt) HYDROmorphone (Dilaudid) (0.5 mg/0.5 mL) injection syringe 0.2 mg 0.2 mg, Intravenous, EVERY 4 HOURS PRN, Starting on 09/28/23 at 1638, Until 10/10/23 at 1938, Pain, Rescue dose, For moderate or severe pain (6-10) unrelieved at least 30 minutes after initial oral PRN dose was administered Max 3 doses/24 hours. If pain still unrelieved after 2nd rescue dose within 24 hours, contact provider., Routine 1222 ([facility] Hold - Provider: Admin Adt - Reason: Transfer to a Procedural area)1705 ([facility] Unhold - Provider: Admin Adt) labetaloL (Normodyne) (5 mg/mL) injection solution 20 mg 20 mg, Intravenous, EVERY 2 HOURS PRN, Starting on Sandra 09/24/23 at 0010, Until 10/10/23 at 1938, High Blood Pressure, Use for systolic blood pressure (SBP) greater than 160 mmHg. May repeat once in 15 minutes if blood pressure remains greater than 160 mmHg., Routine 1222 ([facility] Hold - Provider: Admin Adt - Reason: Transfer to a Procedural area)1705 ([facility] Unhold - Provider: Admin Adt) lidocaine (Xylocaine) 1% (10 mg/mL) injection 3 mg 3 mg (0.3 mL), Subcutaneous, ONCE PRN, 1 dose, Starting on Sandra 09/24/23 at 0010, Until 10/10/23 at 1938, for discomfort with PIV insertion, Recovery (Recovery-Hospital Unit), Routine lidocaine (Xylocaine) 1% (10 mg/mL) injection 30 mg 30 mg (3 mL), Subcutaneous, ONCE PRN, 1 dose, Starting on Thu10/02/23 at 0836, Until 10/10/23 at 1938, drain suture placement, Routine 1222 ([facility] Hold - Provider: Admin Adt - Reason: Transfer to a Procedural area)1705 ([facility] Unhold - Provider: Admin Adt) melatonin tablet 3 mg 3 mg, Oral, NIGHTLY PRN, Starting on Tu10/06/23 at 1947, Until 10/10/23 at 1938, Sleep, Routine 1222 ([facility] Hold - Provider: Admin Adt - Reason: Transfer to a Procedural area)1705 ([facility] Unhold - Provider: Admin Adt)2049 (Given - Provider: Mitchell Vizcarra RN) ondansetron (pf) (Zofran) (2 mg/mL) injection 4 mg 4 mg, Intravenous, EVERY 8 HOURS PRN, Starting on 09/28/23 at 1636, Until 10/10/23 at 1938, Nausea 1222 ([facility] Hold - Provider: Admin Adt - Reason: Transfer to a Procedural area)1706 ([facility] Unhold - Provider: Admin Adt) oxyCODONE (Roxicodone) tablet 5 mg 5 mg, Oral, EVERY 4 HOURS PRN, Starting on Sandra 09/24/23 at 0315, Until 10/10/23 at 1938, Pain, Routine 1222 ([facility] Hold - Provider: Admin Adt - Reason: Transfer to a Procedural area)1706 ([facility] Unhold - Provider: Admin Adt)1747 (Given - Provider: Dianelys Call, EDWARD)204 (Given - Provider: Mitchell Vizacrra RN - Comment: returned from rad scans w/breakthrough incisional pain) polyethylene glycoL (Miralax) packet 17 g 17 g, Oral, DAILY PRN, Starting on Sandra 09/24/23 at 0010, Until 10/10/23 at 1938, Constipation, Routine 1222 ([facility] Hold - Provider: Admin Adt - Reason: Transfer to a Procedural area)170 ([facility] Unhold - Provider: Admin Adt) potassium chloride ER (Klor-Con M) crystal tablet 20 mEq(Linked Group 5) 20 mEq, Oral, EVERY 4 HOURS PRN, Starting on Sandra 09/24/23 at 0210, Until 10/10/23 at 1938, hypokalemia, Administer for serum potassium (mMol/L) of 3.9 - 4 potassium chloride ER particle/crystal tablets (Klor-Con M) may be broken in half and each half swallowed separately. Tablets can be dissolved in ~4 ounces of water; allow ~2 minutes to dissolve, stir well and drink immediately. Do not crush, chew, or suck on tablet., Routine 0254 (Given - Provider: Nelly German RN) 1222 ([facility] Hold - Provider: Admin Adt - Reason: Transfer to a Procedural area)1706 ([facility] Unhold - Provider: Admin Adt) potassium chloride ER (Klor-Con M) crystal tablet 40 mEq(Linked Group 5) 40 mEq, Oral, EVERY 4 HOURS PRN, Starting on Sandra 09/24/23 at 0210, Until 10/10/23 at 1938, hypokalemia, Administer for serum potassium (mMol/L) of 3.6 - 3.8 potassium chloride ER particle/crystal tablets (Klor-Con M) may be broken in half and each half swallowed separately. Tablets can be dissolved in ~4 ounces of water; allow ~2 minutes to dissolve, stir well and drink immediately. Do not crush, chew, or suck on tablet., Routine 0254 (See Alternative - Provider: Nelly German RN) 1222 ([facility] Hold - Provider: Admin Adt - Reason: Transfer to a Procedural area)1706 ([facility] Unhold - Provider: Admin Adt) senna-docusate (Pericolace) 8.6-50 mg per tablet 2 tablet 2 tablet, Oral, 2 TIMES DAILY PRN, Starting on Sandra 09/24/23 at 0010, Until 10/10/23 at 1938, Constipation, Routine 1222 ([facility] Hold - Provider: Admin Adt - Reason: Transfer to a Procedural area)1706 ([facility] Unhold - Provider: Admin Adt) sodium chloride 0.9 % (flush) (BD PosiFlush Normal Saline 0.9) flush 5-20 mL 5-20 mL, Intravenous, EVERY 1 MIN PRN, Starting on Sandra 09/24/23 at 0010, Until 10/10/23 at 1938, flush, Flush pertains to all indwelling lines. Flush per protocol found in the job aid using the link provided on this medication record., Recovery (Recovery-Hospital Unit), Routine Linked Groups Order Group 1: vancomycin (Vancocin) 1.25 gram in dextrose 5% 250 mL infusion (CANCELED)Jump to med 1.25 g, Intravenous, at 100 mL/hr, EVERY 12 HOURS, First dose (after last modification) on Thu09/25/23 at 0300, Until Discontinued, Administer diphenhydramine prior to administering vancomycin Maximum infusion rate is 1 gram/hour. If flushing of the face, neck, upper body, arms, and/or back occurs decrease infusion rate by 50% to reduce the severity of symptoms. This medication may have an associated drug lab level. Please see [facility] for scheduled level. 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 And diphenhydrAMINE (Benadryl) (50 mg/mL) injection 25 mg (CANCELED)Jump to med 25 mg, Intravenous, EVERY 12 HOURS, First dose (after last modification) on Thu09/25/23 at 0300, Until Discontinued, Administer prior to each vancomycin dose, Routine Group 2: NPO diet (Give Meds) (CANCELED) DIET EFFECTIVE MIDNIGHT, Starting on Sandra 10/08/23 at 0005, Until Specified, Diet Restriction: NPO And sodium chloride 0.9% infusion (CANCELED)Jump to med 100 mL/hr, Intravenous, CONTINUOUS, Starting on Sandra 10/08/23 at 0000, Until Sandra 10/08/23 at 1730 Group 3: NPO diet (Give Meds) (CANCELED) DIET EFFECTIVE MIDNIGHT, Starting on Thu10/09/23 at 0005, Until Specified, Diet Restriction: NPO And sodium chloride 0.9% infusion (CANCELED)Jump to med 100 mL/hr, Intravenous, CONTINUOUS, Starting on Thu10/09/23 at 0000, Until Thu10/09/23 at 1718 Group 4: acetaminophen (Tylenol) (32.02 mg/mL) oral liquid 1,000 mgJump to med 1,000 mg, Oral, EVERY 6 HOURS PRN, Starting on 10/03/23 at 1445, Until 10/10/23 at 1938, Fever, - Maximum dose of acetaminophen is 4,000 mg from all sources in 24 hours. - Unless otherwise specified, when ordered PRN for pain, acetaminophen should be given first if other PRN pain medications are ordered., Routine Or acetaminophen (Tylenol) tablet 975 mgJump to med 975 mg, Oral, EVERY 6 HOURS PRN, Starting on 10/03/23 at 1445, Until 10/10/23 at 1938, Pain, - Maximum dose of acetaminophen is 4,000 mg from all sources in 24 hours. - Unless otherwise specified, when ordered PRN for pain, acetaminophen should be given first if other PRN pain medications are ordered., Routine Or acetaminophen (Tylenol) suppository 650 mgJump to med 650 mg, Rectal, EVERY 6 HOURS PRN, Starting on 10/03/23 at 1445, Until 10/10/23 at 1938, Pain, - Maximum dose of acetaminophen is 4,000 mg from all sources in 24 hours. - Unless otherwise specified, when ordered PRN for pain, acetaminophen should be given first if other PRN pain medications are ordered., Routine Group 5: potassium chloride ER (Klor-Con M) crystal tablet 40 mEqJump to med 40 mEq, Oral, EVERY 4 HOURS PRN, Starting on Sandra 09/24/23 at 0210, Until 10/10/23 at 1938, hypokalemia, Administer for serum potassium (mMol/L) of 3.6 - 3.8 potassium chloride ER particle/crystal tablets (Klor-Con M) may be broken in half and each half swallowed separately. Tablets can be dissolved in ~4 ounces of water; allow ~2 minutes to dissolve, stir well and drink immediately. Do not crush, chew, or suck on tablet., Routine Or potassium chloride ER (Klor-Con M) crystal tablet 20 mEqJump to med 20 mEq, Oral, EVERY 4 HOURS PRN, Starting on Sandra 09/24/23 at 0210, Until 10/10/23 at 1938, hypokalemia, Administer for serum potassium (mMol/L) of 3.9 - 4 potassium chloride ER particle/crystal tablets (Klor-Con M) may be broken in half and each half swallowed separately. Tablets can be dissolved in ~4 ounces of water; allow ~2 minutes to dissolve, stir well and drink immediately. Do not crush, chew, or suck on tablet., Routine documented in this encounter Care Teams Yarn Conditioner Relationship Specialty Start Date End Date Peter Lebron PA [address] [place] [address] PCP - General Internal Medicine 08/21/22 documented as of this encounter
--- OUTSIDE RECORDS SUMMARY | 2024-02-29 15:41 | XMS_ITS | Encounter Summary ---
Author Organization [facility] [place] [address] Care Team Providers Care Disbursement Clerk Name Role Phone Peter Lebron Primary Care Provider Encounter Details Date Type Department Care Team (Late st Contact Info) Description 10/06/2023 Telephone [place] [id number] Jong Maria, [facility] [place] [address] Social History Tobacco Use Types Packs/Day Years Used Date Smoking Tobacco: Never Smokeless Tobacco: Never Alcohol Use Standard Drinks/Week Comments No 0 (1 standard drink = 0.6 oz pur e alcohol) [facility] Utilities Answer Date Recorded In the past 12 months has e [employer], gas, oil, or water [employer] threatened to shut off services in your [...] any time in the past 12 m [facility], were you homeless or living in a snf (including now)? No 09/24/2023 IPV Inpatient Questions [...] encounter Miscellaneous Notes * Telephone Encounter - Garrett Barth - 10/06/2023 3:06 PM EDT Clinic Coverage - Reason for Call: Other PCP: MARVA Gordon / Treating provider: Jong Maria DO Message: Tracy Coco, mother/guardian of Chapin Costa, called and stated that Gera Costa is currently admitted to room 345 in [facility] and she expected him to be [place] [facility] [place] this week but has not been given any further information about this. Caller Name (If other than patient): Tracy Pickettnzo Relationship to Patient (if other than self): Mother Callback number: [phone] Best time you are available: Any documented in this encounter Plan of Treatment Not on file documented as of this encounter Visit Diagnoses Not on filedocumented in this encounter Care Teams Disbursement Clerk Relationship Specialty Start Date End Date Peter Lebron PA [address] [place] [address] PCP - General Internal Medicine 08/21/22 documented as of this encounter
--- OUTSIDE RECORDS SUMMARY | 2024-02-29 15:41 | XMS_ITS | Encounter Summary ---
[place] [address] Care Team Providers Care Sustainability Specialist Name Role Phone Peter Lebron Primary Care Provider [phone] Reason for Visit * Auth/Cert (Routine) Specialty Diagnoses / Procedures Referred By Contac t Referred To Contact Diagnoses Shunt malfunction Nonintractable headache, unspecified chronicity pattern, unspecified headache type Rhoda Jimenez MD [facility] [place] [address] [facility] Referral ID Status Reason Start Date Expiration Date Visits Re quested Visits Authorized [id number] 1 1 Encounter Details Date Type Department Care Team (Late st Contact Info) Description 09/24/2023 8:51 AM EDT Anesthesia [place] [address] Ray Cordero MD [facility] [place] [address] Richard Christopher MD Anesthesia Record Procedure Summary Procedure Name Responsible Anesthesiologist Anesthesia Start Time Anesthesia Stop Time @REMOVAL OF COMPLETE CSF SHUNT, W/O REPLACEMENT (WRVU 7.38) (Brain) Ray Cordero MD 09/24/23 0851 09/24/23 1125 Events Date Time Event Comment 09/24/2023 0851 AN Verify 0851 Start 0851 An Start Data 0906 An Induction 0911 An Intubation 0914 Anesthesia Ready 0930 An Data Art Arms being [facility] ed 0950 Procedure Start 1003 Skin Incision 1106 Extubation/LMA Out 1124 an stop data 1125 Recovery or ICU Handoff Candi ent care was transferred to the destination unit staff after review of the patient's medical history, current anesthetic/surgical status and plan, according to the Provider Handoff Checklist. 1125 Stop 09/26/2023 0951 Meds Name Total lidocaine IV 200 mg propofoL 240 mg rocuronium 90 mg ondansetron 8 mg dexAMETHasone 10 mg glycopyrrolate 0.4 mg sugammadex 200 mg propofol INF 1,225.51 mg sodium chloride 0.9% 1,000 mL * Agents Name O2 * Blood No blood administrations on file. Lines, Drains, and Airways Type Details Placement Removal Incision 09/24/23; 1011; Righ t, posterior; ear; Dressing: Polysporin ointment, Xeroform, 4x4, Medipore tape. 09/24/23 1011 by Shawanda Hamm RN Incision 09/24/23; 1013; Righ t, upper; chest; Dressing: Polysporin Ointment, Xeroform, 4x4s, Medipore tape. 09/24/23 1013 by Dorita Cole, EDWARD PIV 09/23/23; 2109; [id number] catheter system; 20 gauge; median cubital vein (antecubital fossa), left; Anatomical Landmarks; Jfitch; 09/29/23; 0130 09/23/23 2109 by Rhoda Quesada RN 09/29/23 0130 by Peter Wood RN PIV 09/24/23; 0418; 22 g auge, 1.75 in length; basilic vein (medial side of arm), right; Ultrasound Guidance; Yes - US guidance used but Image NOT saved; LESLIE LEON; distraction, tolerated well, appears comfortable; 10/05/23; 1831 09/24/23 0418 by Marko Zavala RN 10/05/23 183 by Tatiana Bernardo RN EVD (External Ventricular Drain) 09/24/23; 0635; other (see comments) (Clavicle); Externalized VSP shunt; 09/24/23; 1030 09/24/23 0635 by Ozzie Hernandez RN 09/24/23 1030 by Shawanda Hamm RN ETT Mask Ventilation: Ad junct (2); ETT Type: Cuffed; ETT Size: 8 mm; Shaw Blade: 3; Indirect: Video; Notes: Asleep, Pre-O2, Stylette; Attempts: 3; Laryngoscopy Grade: 1; ETT Placement Verified By: Capnometry, Visual; Secured at Teeth: 24 cm; Inserted by: Robyn; Removal Date: 09/24/23; Removal Time: 1106 09/24/23 0911 by Richard Christopher MD 09/24/23 1106 by Richard Christopher MD Incision 09/24/23; 1003; Righ t; head; This was the EVD; 09/24/23; 1121 09/24/23 1003 by Shawanda Hamm RN 09/24/23 1121 by Dorita Cole RN EVD (External Ventricular Drain) 09/24/23; 1011; other (see comments) (per MD order); Dressing: Chlorahexadine Impregnated; 10/02/23; 1300 09/24/23 1011 by Dorita Cole RN 10/02/23 1300 by Daniela Murguia RN documented in this encounter Social History Tobacco Use Types Packs/Day Years Used Date Smoking Tobacco: Never Smokeless Tobacco: Never Alcohol Use Standard Drinks/Week Comments No 0 (1 standard drink = 0.6 oz pur e alcohol) [facility] Utilities Answer Date Recorded In the past 12 months has [employer], gas, oil, or water [employer] threatened to shut off services in your [...] any time in the past 12 m [facility], were you homeless or living in [...] OR Notes * Anesthesia Postprocedure Evaluation - Richard Christopher MD - 09/24/2023 11:25 AM EDT Department of Anesthesiology Post-procedure Note Patient: Chapin Costa Procedure Summary Date: 09/24/23 Room / Location: [address] MAIN OR Anesthesia Start: 850 Anesthesia Stop: 1124 Procedures: @REMOVAL OF COMPLETE CSF SHUNT, W/O REPLACEMENT (WRVU 7.38) (Brain) STEREOTACTIC COMPUTER-ASSTD NAVIGATIONAL CRANIAL INTRADURAL (WRVU 3.75) (Brain) @TWIST DRILL HOLE, IMPLANT VENTRICULAR OR ICP MONITOR. CATH. (WRVU 4.99) (Head) @VENTRICULOCISTERNOSTOMY (WRVU 22.58) (Right: Head) Diagnosis: (removal of right ventriculopleural shunt) Surgeons: Rhoda Jimenez MD Responsible Provider: Ray Cordero MD Anesthesia Type: general ASA Status: 3 All Anesthesia Providers: Anesthesiologist: Rya Cordero MD Coding Assistant: Richard Christopher MD Vitals Value Taken Time BP Temp Pulse Resp SpO2 Pain Level Patient Location: PACU/[facility] Level of Consciousness: Conscious but Sleepy Pain Management: Satisfactory Analgesia PONV: None Cardiovascular Status: At Baseline Respiratory Status: Supplemental O2 (NC or FM) and Stable Respiratory Status Postoperative Fluid Status: Intravascular EUvolemia Possible Anesthetic Complications: NONE apparent at time of evaluation Final Primary Anesthesia Type: General (The anesthetic type performed was the same as planned.) Comments: Patient had no complications at the time of transfer to recovery nurses. Tolerated anesthesia well. * Anesthesia Preprocedure Evaluation - Ray Cordero MD - 09/24/2023 8:25 AM EDT Pre-Anesthesia Evaluation for: Chapin Costa a 52 y.o. male. Procedure(s): @REMOVAL OF COMPLETE CSF SHUNT, W/O REPLACEMENT (WRVU 7.38) STEREOTACTIC COMPUTER-ASSTD NAVIGATIONAL CRANIAL INTRADURAL (WRVU 3.75) [...] IR All Drainage Procedures Bentley Arceo MD [facility] INTERVENTIONL RAD ??? PRO ALVEOLOPLASTY W EXTRACTIONS, 4 OR MORE TEETH, PER QUADRANT N/A 10/18/2020 ALVEOPLASTY,IN CONJUNCTION WITH EXTRACTIONS,PER QUADRANT,ENT (WRVU 4.06) performed by Shan Rivero MD at [facility] OSC ??? PRO EXTRACTION, ERUPTED TOOTH OR EXPOSED ROOT N/A 10/18/2020 EXTRACTION, ERUPTED TOOTH OR EXPOSED ROOT (WRVU 0.62) performed by Shan Rivero MD at [facility] OSC ??? PRO IMPACT TOOTH REM BONY W/COMP N/A 10/18/2020 SURGICAL EXTRACTIONS, REMOVAL OF IMPACTED TOOTH, COMPLETELY BONY WITH UNUSUAL SURGICAL COMPLICATIONS (WRVU 2.91) performed by Shan Rivero MD at [facility] OSC ??? PRO IMPACT TOOTH REMOV COMP BONY N/A 10/18/2020 SURGICAL EXTRACTIONS, REMOVAL OF IMPACTED TOOTH, COMPLETELY BONY (WRVU 1.93) performed by Shan Rivero MD at [facility] OSC ??? PRO REMOVAL ERUPTED TOOTH WITH ELEVATION OF MUCOPERIOSTEAL FLAP Bilateral 10/18/2020 SURGICAL EXTRACTIONS REQUIRING ELEVATION OF MUCOPERIOSTEAL FLAP AND REMOVAL OF BONE OR SECTION OF TOOTH (WRVU 1.09) performed by Shan Rivero MD at [facility] OSC ??? PRO REMOVAL, COMPLETE CSF SHUNT, W/O REPLACE Right 06/20/2023 @REMOVAL OF COMPLETE CSF SHUNT, W/O REPLACEMENT (WRVU 7.38) [facility]?? PRO REPLACEMENT/REVISION, CSF SHUNT Right 06/09/2023 REVISION OR REPLACEMENT CSF SHUNT (WRVU 11.43) performed by Rhoda Jimenez MD at [facility] MAIN OR ??? PRO REPLACEMENT/REVISION, CSF SHUNT Right 06/29/2023 REVISION OR REPLACEMENT CSF SHUNT (WRVU 11.43) performed by Rhoda Jimenez MD at [facility] CSI ??? PRO RESECT SMALL INTEST, SINGL RESEC/ANAS N/A 07/03/2023 @BOWEL RESECTION, SMALL INTESTINE SINGLE ANASTOMOSIS (WRVU 20.82) performed by Frank Murray MD at [facility] MAIN OR ??? PRO UNLISTED PROCEDURE NERVOUS SYSTEM Right 05/24/2022 EXPLORATION VENTRICULO-PERITONEAL SHUNT (WRVU 25.48) performed by Rhoda iJmenez MD at [facility] MAIN OR ??? SHOULDER SURGERY ??? ULNAR TUNNEL [...] Physical Exam: Preprocedure Vitals Current as of 09/24/23 0825 BP: 110/74 Pulse: 51 Resp: 11 SpO2: 95 Temp: Height: 167.6 cm (5' 5.98) (09/24/23) Weight: 83.1 kg (183 lb 4.8 oz) (09/24/23) BMI: 29.6 IBW: 63.8 kg (140 lb 9.2 oz) Last edited 09/24/23 0814 by Currently displaying vitals information from multiple entries within 180 minutes of most recent vitals. Airway Assessment: Mallampati: I Cardiovascular Assessment: Rate: normal Pulmonary Assessment: unlabored breathing (+) decreased breath sounds Dental Assessment: (+) edentulous Misc Assessment: Patient is wearing No contact(s). IV access: Peripheral line Last Filed Perioperative Cognitive Screening None Anesthesia Plan: ASA 3 general, with a(n) intravenous induction Chapin Costa is a 52 y.o. 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 Concern for proximal malfunction of shunt system. No cardiopulmonary issues. NPO Adequate Prior anesthetics- g1v Mac4 Plan GA/ETT, [place] post-induction Region - Intracranial (non-vascular) Informed Consent: Anesthetic plan and risks discussed with patient. Use of blood products discussed with patient who consented to blood products. Plan discussed with resident and attending. Anesthesia Screening documented in this encounter Plan of Treatment Not on file documented as of this encounter Visit Diagnoses Not on filedocumented in this encounter Administered Medications Inactive Administered Medications - up to 3 most recent administrations Medication Order MAR Action Action Date Dose Rate Site dexAMETHasone (Decadron) injection Intravenous, PRN, Starting on Sandra 09/24/23 at 0911, Until Sandra 09/24/23 at 1125, Anesthesia Intra-op, Routine Given 09/24/2023 9:13 AM EDT 2 mg Given 09/24/2023 9:11 AM EDT 8 mg glycopyrrolate (Robinul) (0.2 mg/mL) multi-dose injection Intravenous, PRN, Starting on Sandra 09/24/23 at 1044, Until Sandra 09/24/23 at 1125, Anesthesia Intra-op, Routine Given 09/24/2023 10:44 AM EDT 0.4 mg lidocaine (pf) (Xylocaine) (20 mg/mL) 2% injection syringe Intravenous, PRN, Starting on Sandra 09/24/23 at 0907, Until Sandra 09/24/23 at 1125, Anesthesia Intra-op, Routine Given 09/24/2023 9:07 AM EDT 100 mg Given 09/24/2023 9:06 AM EDT 100 mg ondansetron (pf) (Zofran) (2 mg/mL) injection Intravenous, PRN, Starting on Sandra 8 at 1044, Until Sandra 09/24/23 at 1125, Anesthesia Intra-op, Routine Given 09/24/2023 10:44 AM EDT 8 mg propofoL (Diprivan) (10 mg/mL) infusion Intravenous, CONTINUOUS PRN, Starting on Sandra 09/24/23 at 0906, Until Sandra 09/24/23 at 1125, Anesthesia Intra-op, Routine Rate/Dose Change 09/24/2023 10:45 AM EDT 100 mcg/kg/min 42.9 mL/hr Rate/Dose Change 09/24/2023 10:29 AM EDT 150 mcg/kg/min 64 .35 mL/hr Rate/Dose Change 09/24/2023 9:32 AM EDT 120 mcg/kg/min 51. 48 mL/hr propofoL (Diprivan) 10 mg/mL bolus injection (Anesthesia) Intravenous, PRN, Starting on Sandra 09/24/23 at 0906, Until Sandra 09/24/23 at 1125, Anesthesia Intra-op Given 09/24/2023 10:29 AM EDT 40 mg Given 09/24/2023 9:06 AM EDT 200 mg rocuronium (Zemuron) (10 mg/mL) multi-dose injection Intravenous, PRN, Starting on Sandra 09/24/23 at 0906, Until Sandra 09/24/23 at 1125, Anesthesia Intra-op, Routine Given 09/24/2023 10:30 AM EDT 10 mg Given 09/24/2023 9:06 AM EDT 80 mg sodium chloride 0.9% infusion Intravenous, CONTINUOUS PRN, Starting on Sandra 09/24/23 at 0906, Until Sandra 09/24/23 at 1125, Anesthesia Intra-op New Bag 09/24/2023 9:06 AM EDT sugammadex (Bridion) 100 mg/mL injection Intravenous, PRN, Starting on Sandra 09/24/23 at 1045, Until Sandra 09/24/23 at 1125, Anesthesia Intra-op, Routine Given 09/24/2023 10:45 AM EDT 200 mg documented in this encounter Care Teams Sustainability Specialist Relationship Specialty Start Date End Date Peter Lebron PA [address] [place] [address] PCP - General Internal Medicine 08/21/22 documented as of this encounter
--- OUTSIDE RECORDS SUMMARY | 2024-02-29 15:41 | XMS_ITS | Encounter Summary ---
Author Organization [facility] [place] [address] Care Team Providers Care Press Room Supervisor Name Role Phone Peter Lebron Primary Care Provider Reason for Visit * Reason Comments Headache * Auth/Cert (Routine) Specialty Diagnoses / Procedures Referred By Contac t Referred To Contact Diagnoses Shunt malfunction Nonintractable headache, unspecified chronicity pattern, unspecified headache type Rhoda Jimenez MD [facility] [place] [address] [place] [address] [facility] Referral ID Status Reason Start Date Expiration Date Visits Re quested Visits Authorized [id number] 1 1 Encounter Details Date Type Department Care Team (Late st Contact Info) Description 10/09/2023 11:32 AM EDT - 10/09/2023 2:52 PM EDT Surgery [place] [address] Rhoda Jimenez MD [facility] [place] [address] [place] [address] @VENTRICULO-PERITONEAL ,-PLEURAL,-OTHER SHUNT (WRVU 14.05) Social History Tobacco Use Types Packs/Day Years Used Date Smoking Tobacco: Never Smokeless Tobacco: Never Alcohol Use Standard Drinks/Week Comments No 0 (1 standard drink = 0.6 oz pur e alcohol) [facility] Utilities Answer Date Recorded In the past [...] any time in the past 12 m [facility], were you homeless or living in a [...] Sign Reading Time Taken Comments Blood Pressure 104/69 10/09/2023 12:10 PM EDT Pulse 71 10/09/2023 12:10 PM EDT Temperature 37.1 ??C (98.8 ??F) 10/09/2023 12:10 PM E DT Respiratory Rate 16 10/09/2023 12:10 PM EDT Oxygen Saturation 94% 10/09/2023 12:10 PM EDT Inhaled Oxygen Concentration - - [...] 09/23/2023 Discharge date: 10/11/2023 Attending Physician: Bhumi maguire. providers found Discharge Diagnoses: LIABILITY CLAIMS MANAGER infection Operations/Major Procedures: Procedure(s): @VENTRICULO-PERITONEAL,-PLEURAL,-OTHER SHUNT (WRVU 14.05) BHAVNA WELSH 2,KINEVO STEREOTACTIC COMPUTER-ASSTD NAVIGATIONAL CRANIAL INTRADURAL (WRVU [...] Hospital Course: Patient was admitted electively to [facility] via the ED to the ICU and subsequently underwent VPS explantation with R EVD placement on 09/24/23. LIABILITY CLAIMS MANAGER and blood cultures were sent and monitored [...] to pass. These medications can be obtained enve-ydd-puhxqvy and their use is recommended on an [...] removal in 10-14 days with the Neurosurgery INTERACTIVE MULTIMEDIA DESIGNER/RN. You will have (2) separate appointments for suture/staple removal for all the following: - R side of head head and upper chest (Nylon) - R frontal head (isabella) - L side of head and chest (Nylon) Appointments: [x] Please follow up in the Neurosurgery Clinic in 4-6 weeks. Please call the Neurosurgery Office at [phone] if you do not receive a scheduled appointment within two weeks. Your follow-up appointment will be with: [x] Dr. Jimenez Imaging: [] No Imaging required at follow-up. [x] Head CT [] XR Shunt series HOW TO REACH NEUROSURGERY Office Hours (Thursday through Thursday 8am-5pm): Call On weekends or after office hours (after 5pm or before 8am): Call [phone] and ask the ending machine operator to page the Neurosurgery Resident/Advanced Practice Provider button and buckle maker. *Your surgeon may not be call center associate (especially after office hours or on the weekend) so be ready totell about yourself and your surgery when you call. General Instructions None Future Appointments and Orders Future Orders Complete By Expires CT Head wo Contrast (Generic) [[id number] Custom] 11/10/2023 (Approximate) 05/11/2024 Process Instructions: Scheduling Instructions: Questions: Where will study be performed?: [facility] Radiology To be scheduled: Ordering department to coordinate scheduling Reason for exam and clinical history: s/p L v-pleural shunt Stat read required?: Does patient require sedation?: Sedation rationale: Scheduled Appointments: No future appointments. Primary Care Doctor: MARVA Gordon [phone] Signed: MARVA Reeves 10/11/2023 documented in this [...] to pass. These medications can be obtained drme-ctt-owsiwux and their use is recommended on an [...] removal in 10-14 days with the Neurosurgery INTERACTIVE MULTIMEDIA DESIGNER/RN. You will have (2) separate appointments for suture/staple removal for all the following: - R side of head head and upper chest (Nylon) - R frontal head (isabella) - L side of head and chest (Nylon) Appointments: [x] Please follow up in the Neurosurgery Clinic in 4-6 weeks. Please call the Neurosurgery Office at [phone] if you do not receive a scheduled appointment within two weeks. Your follow-up appointment will be with: [x] Dr. Jimenez Imaging: [] No Imaging required at follow-up. [x] Head CT [] XR Shunt series HOW TO REACH NEUROSURGERY Office Hours (Thursday through Thursday 8am-5pm): Call On weekends or after office hours (after 5pm or before 8am): Call [phone] and ask the ending machine operator to page the Neurosurgery Resident/Advanced Practice Provider button and buckle maker. *Your surgeon may not be call center associate (especially after office hours or on the [...] IR All Drainage Procedures Bentley Arceo MD [facility] INTERVENTIONL RAD PRO ALVEOLOPLASTY W EXTRACTIONS, 4 OR MORE TEETH, PER QUADRANT N/A 10/18/2020 ALVEOPLASTY,IN CONJUNCTION WITH EXTRACTIONS,PER QUADRANT,ENT (WRVU 4.06) performed by Shan Rivero MD at [facility] OSC PRO EXTRACTION, ERUPTED TOOTH OR EXPOSED ROOT N/A 10/18/2020 EXTRACTION, ERUPTED TOOTH OR EXPOSED ROOT (WRVU 0.62) performed by Shan Rivero MD at [facility] OSC PRO IMPACT TOOTH REM BONY W/COMP N/A 10/18/2020 SURGICAL EXTRACTIONS, REMOVAL OF IMPACTED TOOTH, COMPLETELY BONY WITH UNUSUAL SURGICAL COMPLICATIONS (WRVU 2.91) performed by Shan Rivero MD at [facility] OSC PRO IMPACT TOOTH REMOV COMP BONY N/A 10/18/2020 SURGICAL EXTRACTIONS, REMOVAL OF IMPACTED TOOTH, COMPLETELY BONY (WRVU 1.93) performed by Shan Rivero MD at [facility] OSC PRO REMOVAL ERUPTED TOOTH WITH ELEVATION OF MUCOPERIOSTEAL FLAP Bilateral 10/18/2020 SURGICAL EXTRACTIONS REQUIRING ELEVATION OF MUCOPERIOSTEAL FLAP AND REMOVAL OF BONE OR SECTION OF TOOTH (WRVU 1.09) performed by Shan Rivero MD at [facility] OSC PRO REMOVAL, COMPLETE CSF SHUNT, W/O REPLACE Right 06/20/2023 @REMOVAL OF COMPLETE CSF SHUNT, W/O REPLACEMENT (WRVU 7.38) performed by Frank Murray MD at [facility] OR PRO REMOVAL, COMPLETE CSF SHUNT, W/O REPLACE N/A 09/24/2023 @REMOVAL OF COMPLETE CSF SHUNT, W/O REPLACEMENT (WRVU 7.38) performed by Rhoda Jimenez MD at [facility] OR PRO REPLACEMENT/REVISION, CSF SHUNT Right 06/09/2023 REVISION OR REPLACEMENT CSF SHUNT (WRVU 11.43) performed by Rhoda Jimenez MD at [facility] OR PRO REPLACEMENT/REVISION, CSF SHUNT Right 06/29/2023 REVISION OR REPLACEMENT CSF SHUNT (WRVU 11.43) [facility] PRO RESECT SMALL INTEST, SINGL RESEC/ANAS N/A 07/03/2023 @BOWEL RESECTION, SMALL INTESTINE SINGLE ANASTOMOSIS (WRVU 20.82) performed by Frank Murray MD at [facility] MAIN OR [facility] STEREOTACTIC CPTR ASSTD PX CRANIAL, INTRADURAL N/A 09/24/2023 STEREOTACTIC COMPUTER-ASSTD NAVIGATIONAL CRANIAL INTRADURAL (WRVU 3.75) performed by Rhoda Jimenez MD at [facility] MAIN OR [facility] TWIST HOLE SKULL, IMPLANT CATH/DEVICE 09/24/2023 @TWIST DRILL HOLE, IMPLANT VENTRICULAR OR ICP MONITOR. CATH. (WRVU 4.99) performed by Rhoda Jimenez MD at [facility] MAIN OR PRO UNLISTED PROCEDURE NERVOUS SYSTEM Right 05/24/2022 EXPLORATION VENTRICULO-PERITONEAL SHUNT (WRVU 25.48) performed by Rhoda Jimenez MD at [facility] MAIN OR PRO VENTRICULO-CISTERNOSTOMY Right 09/24/2023 @VENTRICULOCISTERNOSTOMY (WRVU 22.58) performed by Rhoda Jimenez MD at [facility] MAIN OR SHOULDER SURGERY ULNAR TUNNEL RELEASE [...] all day MF and then partial days /Thurs. Pt's mother checks in on him periodically [...] he return home with support from his mother/product assurance engineer. Pt has no other inpatient PT or [...] OUT: 1500/1515 Total Time: 15 minutes; Lito Martell, PT Pager: [phone] Physical Therapy Inpatient Rehabilitation Department * Maegan Almendarez OT - 10/10/2023 3:00 PM EDT Occupational [...] IR All Drainage Procedures Bentley Arceo MD [facility] INTERVENTIONL RAD PRO ALVEOLOPLASTY W EXTRACTIONS, 4 OR MORE TEETH, PER QUADRANT N/A 10/18/2020 ALVEOPLASTY,IN CONJUNCTION WITH EXTRACTIONS,PER QUADRANT,ENT (WRVU 4.06) performed by Shan Rivero MD at [facility] OSC PRO EXTRACTION, ERUPTED TOOTH OR EXPOSED ROOT N/A 10/18/2020 EXTRACTION, ERUPTED TOOTH OR EXPOSED ROOT (WRVU 0.62) performed by Shan Rivero MD at [facility] OSC PRO IMPACT TOOTH REM BONY W/COMP N/A 10/18/2020 SURGICAL EXTRACTIONS, REMOVAL OF IMPACTED TOOTH, COMPLETELY BONY WITH UNUSUAL SURGICAL COMPLICATIONS (WRVU 2.91) performed by Shan Rivero MD at [facility] OSC PRO IMPACT TOOTH REMOV COMP BONY N/A 10/18/2020 SURGICAL EXTRACTIONS, REMOVAL OF IMPACTED TOOTH, COMPLETELY BONY (WRVU 1.93) performed by Shan Rivero MD at [facility] OSC PRO REMOVAL ERUPTED TOOTH WITH ELEVATION OF MUCOPERIOSTEAL FLAP Bilateral 10/18/2020 SURGICAL EXTRACTIONS REQUIRING ELEVATION OF MUCOPERIOSTEAL FLAP AND REMOVAL OF BONE OR SECTION OF TOOTH (WRVU 1.09) performed by Shan Rivero MD at [facility] OSC PRO REMOVAL, COMPLETE CSF SHUNT, W/O REPLACE Right 06/20/2023 @REMOVAL OF COMPLETE CSF SHUNT, W/O REPLACEMENT (WRVU 7.38) performed by Frank Murray MD at [facility] OR PRO REMOVAL, COMPLETE CSF SHUNT, W/O REPLACE N/A 09/24/2023 @REMOVAL OF COMPLETE CSF SHUNT, W/O REPLACEMENT (WRVU 7.38) performed by Rhoda Jimenez MD at [facility] OR PRO REPLACEMENT/REVISION, CSF SHUNT Right 06/09/2023 REVISION OR REPLACEMENT CSF SHUNT (WRVU 11.43) performed by Rhoda Jimenez MD at [facility] MAIN OR PRO REPLACEMENT/REVISION, CSF SHUNT Right 06/29/2023 REVISION OR REPLACEMENT CSF SHUNT (WRVU 11.43) performed by [facility] PRO RESECT SMALL INTEST, SINGL RESEC/ANAS N/A 07/03/2023 @BOWEL RESECTION, SMALL INTESTINE SINGLE ANASTOMOSIS (WRVU 20.82) performed by Frank Murray MD at [facility] MAIN OR [facility] STEREOTACTIC CPTR ASSTD PX CRANIAL, INTRADURAL N/A 09/24/2023 STEREOTACTIC COMPUTER-ASSTD NAVIGATIONAL CRANIAL INTRADURAL (WRVU 3.75) performed by Rhoda Jimenez MD at [facility] MAIN OR [facility] TWIST HOLE SKULL, IMPLANT CATH/DEVICE 09/24/2023 @TWIST DRILL HOLE, IMPLANT VENTRICULAR OR ICP MONITOR. CATH. (WRVU 4.99) performed by Rhoda Jimenez MD at [facility] MAIN OR PRO UNLISTED PROCEDURE NERVOUS SYSTEM Right 05/24/2022 EXPLORATION VENTRICULO-PERITONEAL SHUNT (WRVU 25.48) performed by Rhoda Jimenez MD at [facility] MAIN OR PRO VENTRICULO-CISTERNOSTOMY Right 09/24/2023 @VENTRICULOCISTERNOSTOMY (WRVU 22.58) performed by Rhoda Jimenez MD at [facility] MAIN OR SHOULDER SURGERY ULNAR TUNNEL RELEASE [...] complete stall shower transfer w/ supervision, then wire loop machine operator place w/ hands over head and eyes [...] evaluation. Chapin Costa presents s/p replacement of ENGINE ASSEMBLER shunt and EVD removal. He is mildly [...] and measurable assessment of functional outcome. Pager: [phone] MAEGAN ALMENDAREZ OT 10/10/2023 Occupational Therapy Rehabilitation Department * Rafia Simpson - 10/10/2023 1:13 PM EDT Nutrition Services Note - Low Nutrition Acuity Chapin Costa is a 52 y.o. male Reason for intervention: follow up Nutrition Plan Continue Diet Plan Encourage good PO Monitor Weight Chapin Costa was scheduled for a f/u nutrition evaluation. [employer] Spanish Teacher met with pt at bedside. This was day 1 off of NPO per documentation pt ate 100% of breakfast and designer/writer observed that pt had just finished all [...] unless consulted in the interim. Rafia Simpson Pack Train Driver * Olga Clifton MD - 10/10/2023 6:50 AM EDT [facility] NEUROSURGERY PROGRESS NOTE ID: Chapin Costa 52 [...] appreciated -bowel regimen -DVT ppx SCDs, hold SQ -SBP 90-160 -Dispo pending course For questions please call NSGY pager [phone] Olga Clifton MD 10/10/2023 7:10 AM Clinical Documentation Improvement: Active Hospital Problems Diagnosis Shunt malfunction Resolved Hospital Problems No resolved problems to display. * Catalino Nickerson - 10/09/2023 8:22 PM EDT [facility] NEUROSURGERY PROGRESS NOTE ID: Chapin Costa 52 y.o. male : 1970 LOS: 16 Neurosurgical Procedures this Admission: 8/1/242, Dr. Jimenez: VPS explantation, R EVD placement [...] course For question please call NSGY pager [phone] Catalino Nickerson 10/09/2023 8:22 PM Clinical Documentation [...] Ricci MD - 10/09/2023 4:58 PM EDT [facility] NEUROSURGERY PROGRESS NOTE ID: Chapin Costa 52 [...] course For question please call NSGY pager [phone] Laila Ricci MD 10/09/2023 4:58 PM Clinical Documentation Improvement: Active Hospital Problems Diagnosis Shunt malfunction Resolved Hospital Problems No resolved problems to display. * Merari Alberts, RN - 10/09/2023 4:53 PM EDT Pt sleeping off and on. Brenda po sips. Denies ALICEA. Neuro intact. [facility] * Frank uMrray MD - 10/09/2023 10:23 AM EDT Unfortunately Eevr was readmitted to the hospital for a [...] Ricci MD - 10/09/2023 6:52 AM EDT [facility] NEUROSURGERY PROGRESS NOTE ID: Chapin Costa 52 [...] course For question please call NSGY pager [phone] Laila Ricci MD 10/09/2023 6:52 AM Clinical [...] Ricci MD - 10/08/2023 6:57 AM EDT [facility] NEUROSURGERY PROGRESS NOTE ID: Chapin Costa 52 [...] -Dispo pending course For question please call NSThe Idle Man pager [phone] Laila Ricci MD 10/08/2023 6:57 AM Clinical Documentation Improvement: Active Hospital Problems Diagnosis Shunt malfunction Resolved Hospital Problems No resolved problems to display. * Laila Ricci MD - 10/07/2023 10:14 AM EDT [facility] NEUROSURGERY PROGRESS NOTE ID: Chapin Costa 52 [...] course For question please call NSGY pager [phone] Laila Ricci MD 10/07/2023 10:14 AM Clinical Documentation Improvement: Active Hospital Problems Diagnosis Shunt malfunction Resolved Hospital Problems No resolved problems to display. * Gema Mayberry MD - 10/07/2023 9:58 AM EDT INFECTIOUS DISEASE FOLLOW-UP NOTE Active ID Issue(s): 52 y.o. male being followed by ID for ENGINE ASSEMBLER shunt infection. ID service signed off. Re engagement request by primary team for clearance for ENGINE ASSEMBLER shunt placement. Current Antimicrobial(s): IV Vancomycin Interval History/Subjective: Chapin Costa is a 52 y.o. 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 He has an EVD, and [...] Labs 10/06/23 0846 SEDRATE 36 Recent Labs 10/05/232015 CRP 11.4* Microbiology: See above Antimicrobials: IV Vancomycin x 14 days Imaging/diagnostics: Reports reviewed. CT HEAD WO CONTRAST (GENERIC) IMPRESSION Stable parenchymal hemorrhage surrounding the frontal ventricular catheter. Decreased size of the ventricular system, as above. 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 He has an EVD, and cultures grew GPR that is finalized as NEGATIVE. CSF cell count from 09/29 and 09/24 show decrease in cell count in recent sample. CSF cultures from nd 09/24, 09/23, 7/31 are NEGATIVE. Blood cx NEG No fevers [...] on the date of service on the htbi-ao-apgd encounter, chart review, clinical decision-making, documentation, and coordination of care with other team members regarding treatmentof infection Dr. Mayberry, TYRELL Attending, Department of Infectious diseases. 8 AM to 5 PM, Thursday - Thursday10/07/2023 * Laila Ricci MD - 10/06/2023 11:55 AM EDT [facility] NEUROSURGERY PROGRESS NOTE ID: Chapin Costa 52 [...] -Dispo pending course For question please call twtrland pager [phone] Laila Ricci MD 10/06/2023 11:55 AM Clinical [...] Ricci MD - 10/05/2023 7:00 AM EDT [facility] NEUROSURGERY PROGRESS NOTE ID: Chapin Costa 52 y.o. male : 1970 LOS: 12 Neurosurgical Procedures this Admission: , Dr. Jimenez: VPS explantation, R EVD placement INTERVAL Hx: -SANIA -CSF NGTD, remains on [facility] -CT yesterday with improvement in ventricular caliber -On [...] PLATELET 249 239 Recent Labs 10/04/23201510/03/23 2249 10/03/233 10/03/23 0413 NA 135 134* 131* 132* K 3.3* [...] CTH today with improvement in ventricular caliber back up scan coordinator to his baseline and his sx of [...] course For question please call NSGY pager [phone] Laila Ricci MD 10/05/2023 5:41 AM Clinical [...] exam unchanged. EVD was clamped distally andproximally. [employer] Spanish Teacher paged neurosurgery at [phone]. Education was provided to patient regarding safety and drain management. Pt verbalized understanding. * Laila Ricci MD - 10/04/2023 6:14 AM EDT [facility] NEUROSURGERY PROGRESS NOTE ID: Chapin Costa 52 [...] 16.3 PLATELET 239 Recent Labs 10/03/23 2249 10/03/23205210/03/23 0413 NA -- 131* 132* K 3.8 [...] CTH today with improvement in ventricular caliber back up scan coordinator to his baseline and his sx of ALICEA and fatigue now resolved. Recently with hyponatremia, will obtain urine labs this morning. Plan: -Q2 neuro checks, Q2 VS -EVD open @ 0, not transducing -ID consult - following recs -advance diet as tolerated -bowel regimen -DVT ppx SCDs, hold SQH -SBP 90-160 -Will discuss VPS insertion timing -Dispo pending course For question please call twtrland pager [phone] Laila Ricci MD 10/04/2023 6:14 AM Clinical Documentation Improvement: Active Hospital Problems Diagnosis Shunt malfunction Resolved Hospital Problems No resolved problems to display. * Laila Ricci MD - 10/03/2023 5:23 PM EDT [facility] NEUROSURGERY PROGRESS NOTE ID: Chapin Costa 52 [...] course For question please call NSGY pager [phone] Laila Ricci MD 10/03/2023 5:24 PM Clinical Documentation Improvement: Active Hospital Problems Diagnosis Shunt malfunction Resolved Hospital Problems No resolved problems to display. * Daniela Murguia RN - 10/03/2023 2:01 PM EDT Page Sent Successfully Page Confirmation To Pager number: [phone] From Submitter: Daniela Murguia Urgency Level: FY Callback Number: [phone] The following Message was sent: [] - Callback:[phone], Wilma Costa. Pt's mother arrived, requested to speak to Provider - Daniela Murguia The following status was returned from the service observer chief: Page for [phone] successfully sent to [phone] having status of Available. OK * Mirian Murrieta PA - 10/02/2023 2:02 PM EDT [facility] NEUROSURGERY EVD PROCEDURE NOTE PATIENT: Chapin Costa [...] Marcus MD - 10/02/2023 9:38 AM EDT [facility] NEUROSURGERY PROGRESS NOTE ID: Chapin Costa 52 [...] -Will discuss VPS insertion timing with Dr. Tony Jimenez pending course For question please call NSGY pager [phone] Mo Marcus MD 10/02/2023 9:38 AM Clinical [...] Sent Successfully Page Confirmation To Pager number: [phone] From Submitter: Daniela Murguia Urgency Level: Urgent Callback Number: [phone] The following Message was sent: [Urgent] - Callback:[phone] RM [phone], Wilma Costa. Please call about EVD dressing/placement immediately thx - Daniela Murguia The following status was returned from the service observer chief: Page for [phone] successfully sent to [phone] having status of Available. * Daniela Murguia RN - 10/02/2023 7:39 AM EDT Page Sent Successfully Page Confirmation To Pager number: [phone] From Submitter: Daniela Murguia Urgency Level: Call Me Callback Number: The following Message was sent: [Call Me] - Callback: Rm [phone]. Wilma Costa. EVD Dressing out of place, sutures not intact. - Daniela Murguia The following status was returned from the service observer chief: Page for [phone] successfully sent to [phone] [...] Rodriguez Urgency Level: Call Me Callback Number: [phone] The following Message was sent: [Call Me] - Callback:[phone] Igor Pt states he is unable to look up which is new, his RN is at lunch - Madina Rodriguez The following status was returned from the service observer chief: Page for [phone] successfully sent to [phone] having status of Available. * Tavia Linton DT - 10/01/2023 12:36 PM EDT Nutrition Services Note - Low Nutrition Acuity Chapin Costa is a 52 y.o. male Reason for intervention: hospital day 9 Nutrition Plan: Continue current diet Encourage good PO Updated wt requested Monitor PO intakes Pt screened for hospital length of stay and designer/writer met pt at bedside. Pt stated that [...] unless consulted in the interim. CESAR Sampson Parts Technician * Laila Ricci MD - 10/01/2023 6:15 AM EDT [facility] NEUROSURGERY PROGRESS NOTE ID: Chapin Costa 52 [...] course For question please call NSGY pager [phone] Laila Ricci MD 10/01/2023 6:15 AM Clinical [...] y.o. male being followed by ID for ENGINE ASSEMBLER shunt infection. Interim Events: GPR from the 09/23/23 shunt culture is still not identified. 09/24 repeat CSF cell count was 80 WBCs (93% PMNs) with protein 30 and glucose 106. This is higher than the 4 WBCs on the fluid obtained on 09/23/23 from the ENGINE ASSEMBLER shunt. Gram stain negative, culture negative. AFB and fungal cultures are not finalized yet Dr. Jimenez (Neurosurgery) is planning to replace EVD with new ENGINE ASSEMBLER shunt. He has been afebrile with nearly [...] ALKPHOS 124 07/23/2023 BILITOT 0.4 07/23/2023 Micro: LIABILITY CLAIMS MANAGER shunt culture growing Gram Positive Rods Imaging: Last was CT 09/23 Impression: Chapin Costa is a 52 y.o. 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 He has an EVD, and [...] culture ahead of decisions for permanent new ENGINE ASSEMBLER shunt. Recommendation: Continue vancomycin with AUC dosing per Pharm Antibiotic safety monitoring with weekly BUN/Cr, LFTs, CBC Monitor infection clearance by CBC, ESR, CRP and blood cultures q24h when febrile Repeat cell count and culture of CSF Replacing ENGINE ASSEMBLER shunt per Neurosurg Discussed with patient, family and team ID will follow with you. Jenna Hernandez MD ID Attending, still cleaner tube Page [phone] I spent a total of 35 minutes on the date of service on the kmof-ro-zbqc encounter, chart review, clinical decision-making, documentation, and coordination of care regarding treatment of infection asdetailed in note above. * Laila Ricci MD - 09/30/2023 5:54 AM EDT [facility] NEUROSURGERY PROGRESS NOTE ID: Chapin Costa 52 [...] No pronator drift MOTOR: RUE:5/5 LUE:5/5 RLE: 55 LLE: 5 LT sensation intact x 4 Dressing CDI [...] course For question please call NSGY pager [phone] Laila Ricci MD 09/30/2023 5:54 AM Clinical Documentation Improvement: Active Hospital Problems Diagnosis Shunt malfunction Resolved Hospital Problems No resolved problems to display. * Daniela Murguia RN - 09/29/2023 10:14 AM EDT Page Sent Successfully Page Confirmation To Pager number: [phone] From Submitter: Daniela Murguia Urgency Level: Call Me Callback Number: [phone] The following Message was sent: [Call Me] - Callback:[phone] [facility] 345. Gideon Costa EVD drain output< 10 mL for 2 hour period - Daniela Murguia The following status was returned from the service observer chief: Page for [phone] successfully sent to [phone] having status of Available. * Laila Ricci MD - 09/29/2023 5:37 AM EDT [facility] NEUROSURGERY PROGRESS NOTE ID: Chapin Costa 52 [...] -Dispo pending course For question please call NSThe Idle Man pager [phone] Laila Ricci MD 09/29/2023 5:37 AM Clinical [...] [id number] From Submitter: Peter Wood Urgency Level: Callback Number: [phone] The following Message was sent: [I] - Callback:[phone] Wilma Costa pt's mother asked if I could let ID know pt spiked a 99.7F temp at 1600 - Peter Wood The following status was returned from the service observer chief: Page for [phone] successfully sent to [phone] having status of [...] Fuentes Urgency Level: Call Me Callback Number: [phone] The following Message was sent: [Call Me] - Callback:[phone] Costa, pt drain out 6cc, also pt report headache 06/02 no neuro deficits - Deng Fuentes The following status was returned from the service observer chief: Page for [phone] successfully sent to [phone] having status of Available. * Laila Ricci MD - 09/28/2023 5:37 AM EDT [facility] NEUROSURGERY PROGRESS NOTE ID: Chapin Costa 52 [...] course For question please call NSGY pager [phone] Laila Ricci MD 09/28/2023 5:37 AM Clinical Documentation Improvement: Active Hospital Problems Diagnosis Shunt malfunction Resolved Hospital Problems No resolved problems to display. * Deng Fuentes RN - 09/27/2023 6:59 PM EDT Page Sent Successfully Page Confirmation To Pager number: [phone] From Submitter: Deng Fuentes Urgency Level: FYI Callback Number: [phone] The following Message was sent: [FYI] - Callback:[phone] Costa, drain output 7cc over 2hrs, notifying per order - Deng Fuentes The following status was returned from the service observer chief: Page for [phone] successfully sent to [phone] having status of Available. * Deng Fuentes RN - 09/27/2023 6:00 PM EDT Pt self reports hx of clinical depression. * Deng Fuentes RN - 09/27/2023 3:16 PM EDT Page Sent Successfully Page Confirmation To Pager number: [phone] From Submitter: Deng Fuentes Urgency Level: Call Me Callback Number: [phone] The following Message was sent: [Call Me] - Callback:[phone] Nawaf Costa, EVD output 8cc for 2hrs, notifying per order - Deng Fuentes The following status was returned from the service observer chief: Page for [phone] successfully sent to [phone] having status of Available. * Dianelys Call RN - 09/27/2023 6:20 AM EDT OUTCOME EVALUATION NOTE: OUTCOME SUMMARY: Pt is A/Ox4. VSS on RA. Pt reports 05/02 headache, Tylenol administered. Continued IV ABX. EVD [...] Ricci MD - 09/27/2023 6:00 AM EDT [facility] NEUROSURGERY PROGRESS NOTE ID: Chapin Costa 52 [...] course For question please call NSGY pager [phone] Laila Ricci MD 09/26/2023 8:01 PM Clinical Documentation Improvement: Active Hospital Problems Diagnosis Shunt malfunction Resolved Hospital Problems No resolved problems to display. * Dianelys Call RN - 09/27/2023 1:33 AM EDT 1:33 AM Page Sent Successfully Page Confirmation To Pager number: [phone] From Submitter: Dianelys Call Urgency Level: Call Me Callback Number: [phone] The following Message was sent: [Call Me] - Callback:[phone] Costa- last EVD output was 5mL. - Dianelys Call The following status was returned from the service observer chief: Page for [phone] successfully sent to [phone] having status of Available. * Robin Jones RN - 09/26/2023 4:49 PM EDT Paged NST for EVD output of only 4ml over the past two hours. Asked if okay to drop to drain, no new orders. * Laila Ricci MD - 09/26/2023 9:41 AM EDT [facility] NEUROSURGERY PROGRESS NOTE ID: Chapin Costa 52 [...] -Dispo pending course For question please call twtrland pager [phone] Laila Ricci MD 09/26/2023 9:41 AM Clinical Documentation Improvement: Active Hospital Problems Diagnosis Shunt malfunction Resolved Hospital Problems No resolved problems to display. * Robin Jones RN - 09/25/2023 8:54 AM EDT OK to hold Metoprolol this Am for SBP <100 per PA. * Laila Ricci MD - 09/25/2023 5:09 AM EDT [facility] NEUROSURGERY PROGRESS NOTE ID: Chapin Costa 52 [...] Tongue midline No pronator drift MOTOR: RUE:06/27 LUE:5/5 RLE: 5/5 LLE: 5/5 LT sensation [...] -Dispo pending course For question please call NS pager [phone] Laila Ricci MD 09/25/2023 5:09 AM Clinical [...] Amrit LEE. [facility]. Paged [phone] regarding drain being off. 1220 Drain opened, at 15 cm H20 as ordered. 1240 Report to NSCU RN. 1300 Drain off and Ever transported to [facility] by this RN. * Mo Marcus MD - 09/24/2023 11:54 AM EDT [facility] Neurosurgery Consult / Inpatient Progress Note 09/24/23 [...] page if further consultation required. Neurosurgery Pager: [phone] Mo Marcus MD 09/24/2023 11:55 AM Clinical Documentation Improvement: Active Hospital Problems Diagnosis Shunt malfunction Resolved Hospital Problems No resolved problems to display. * Trip Murphy MD - 09/24/2023 4:41 AM EDT [facility] TeleICU Initial Assessment Note I established audio/visual [...] Q03.9 Shunt malfunction T85.618A Small bowel obstruction K56.604 CAMERA: No distress on RA Patient Vitals [...] CSF CT [address] 161 LIABILITY CLAIMS MANAGER Shunt Culture Specimen: Cerebrospinal Shunt Fluid Result [...] Value POC Glucose 97 Type and screen ([facility]/CGP/DULCE MARIA) Result Value ABORH Type A POSITIVE Patient BB History Found Expires at 0346 on: 09/27/2023 Ab Screen Interp Negative ABORH Recheck Status Result Value ABORH Type Recheck Completed Type and Screen Validity Result Value T&S only valid at [facility] Hosp Calcium Ionized Whole Blood, CHANO Result Value pH Chano 7.39 ICa Whole Blood 1.20 A/P: #VPS infection -Vancomycin/ceftriaxone/metronidazole/neuro checks as per [facility] #Hypothyroidism -Levothyroxine #Seizure disorder -Topiramate This is a non-billable note. * Ellie Riddle RN - 09/24/2023 4:08 AM EDT Page Sent Successfully Page Confirmation To Pager number: [phone] From Submitter: Ellie Riddle Urgency Level: FYI Callback Number: [phone] The following Message was sent: [FYI] - Callback:[phone], [phone], need an additional iv. thank you - Ellie Riddle The following status was returned from the service observer chief: Page for 9260 successfully sent to [phone] having status of Available. documented in this encounter H&P Notes * Richard Valles MD - 09/24/2023 7:28 AM EDT [facility] NEUROSURGERY H&PNOTE ID: Chapin Costa 52 y.o. [...] IR All Drainage Procedures Bentley Arceo MD [facility] INTERVENTIONL RAD PRO ALVEOLOPLASTY W EXTRACTIONS, 4 OR MORE TEETH, PER QUADRANT N/A 10/18/2020 ALVEOPLASTY,IN CONJUNCTION WITH EXTRACTIONS,PER QUADRANT,ENT (WRVU 4.06) performed by Shan Rivero MD at [facility] OSC PRO EXTRACTION, ERUPTED TOOTH OR EXPOSED ROOT N/A 10/18/2020 EXTRACTION, ERUPTED TOOTH OR EXPOSED ROOT (WRVU 0.62) performed by Shan Rivero MD at [facility] OSC PRO IMPACT TOOTH REM BONY W/COMP N/A 10/18/2020 SURGICAL EXTRACTIONS, REMOVAL OF IMPACTED TOOTH, COMPLETELY BONY WITH UNUSUAL SURGICAL COMPLICATIONS (WRVU 2.91) performed by Shan Rivero MD at [facility] OSC PRO IMPACT TOOTH REMOV COMP BONY N/A 10/18/2020 SURGICAL EXTRACTIONS, REMOVAL OF IMPACTED TOOTH, COMPLETELY BONY (WRVU 1.93) performed by Shan Rivero MD at [facility] OSC PRO REMOVAL ERUPTED TOOTH WITH ELEVATION OF MUCOPERIOSTEAL FLAP Bilateral 10/18/2020 SURGICAL EXTRACTIONS REQUIRING ELEVATION OF MUCOPERIOSTEAL FLAP AND REMOVAL OF BONE OR SECTION OF TOOTH (WRVU 1.09) performed by Shan Rivero MD at [facility] OSC PRO REMOVAL, COMPLETE CSF SHUNT, W/O REPLACE Right 06/20/2023 @REMOVAL OF COMPLETE CSF SHUNT, W/O REPLACEMENT (WRVU 7.38) [facility] REPLACEMENT/REVISION, CSF SHUNT Right 06/09/2023 REVISION OR REPLACEMENT CSF SHUNT (WRVU 11.43) performed by Rhoda Jimenez MD at [facility] MAIN OR PRO REPLACEMENT/REVISION, CSF SHUNT Right 06/29/2023 REVISION OR REPLACEMENT CSF SHUNT (WRVU 11.43) performed by Rhoda Jimenez MD at [facility] CSI PRO RESECT SMALL INTEST, SINGL RESEC/ANAS N/A 07/03/2023 @BOWEL RESECTION, SMALL INTESTINE SINGLE ANASTOMOSIS (WRVU 20.82) performed by Frank Murray MD at [facility] MAIN OR PRO UNLISTED PROCEDURE NERVOUS SYSTEM Right 05/24/2022 EXPLORATION VENTRICULO-PERITONEAL SHUNT (WRVU 25.48) performed by Rhoda Jimenez MD at [facility] MAIN OR SHOULDER SURGERY ULNAR TUNNEL RELEASE [...] 30 days. On the of every month [DISCONTINUED] acetaminophen (Tylenol) 500 [...] Provider Department Center 10/21/2023 10:00 AM Annalise Rivera, LIZA [facility] SURG [facility] Neurosurgery Pager: [phone] Richard Valles MD 09/24/2023 7:29 AM Clinical [...] shunt while awaiting final cultures. * Henry Elder, LIZA - 09/24/2023 3:28 AM EDT Images from [...] concern for VPS infection. Per review of [facility] ED notes: Ever presents to [facility] ED after 3 days on generalized ALICEA with pain, edema, and erythema to his shunt site locate behind his right ear. Also mother and ever report recent fevers to 100.7 for which he has self administered Tylenol with good effect, chills, lethargy, and body aches which have historically corresponded with a VPS malfunction. This prompted Ever ot contact NSGY at [facility] who advised him to be seen in [...] IR All Drainage Procedures Bentley Arceo MD [facility] INTERVENTIONL RAD PRO ALVEOLOPLASTY W EXTRACTIONS, 4 OR MORE TEETH, PER QUADRANT N/A 10/18/2020 ALVEOPLASTY,IN CONJUNCTION WITH EXTRACTIONS,PER QUADRANT,ENT (WRVU 4.06) performed by Shan Rivero MD at [facility] OSC PRO EXTRACTION, ERUPTED TOOTH OR EXPOSED ROOT N/A 10/18/2020 EXTRACTION, ERUPTED TOOTH OR EXPOSED ROOT (WRVU 0.62) performed by Shan Rivero MD at [facility] OSC PRO IMPACT TOOTH REM BONY W/COMP N/A 10/18/2020 SURGICAL EXTRACTIONS, REMOVAL OF IMPACTED TOOTH, COMPLETELY BONY WITH UNUSUAL SURGICAL COMPLICATIONS (WRVU 2.91) performed by Shan Rivero MD at [facility] OSC PRO IMPACT TOOTH REMOV COMP BONY N/A 10/18/2020 SURGICAL EXTRACTIONS, REMOVAL OF IMPACTED TOOTH, COMPLETELY BONY (WRVU 1.93) performed by Shan Rivero MD at [facility] OSC PRO REMOVAL ERUPTED TOOTH WITH ELEVATION OF MUCOPERIOSTEAL FLAP Bilateral 10/18/2020 SURGICAL EXTRACTIONS REQUIRING ELEVATION OF MUCOPERIOSTEAL FLAP AND REMOVAL OF BONE OR SECTION OF TOOTH (WRVU 1.09) performed by Shan Rivero MD at [facility] OSC PRO REMOVAL, COMPLETE CSF SHUNT, W/O REPLACE Right 06/20/2023 @REMOVAL OF COMPLETE CSF SHUNT, W/O REPLACEMENT (WRVU 7.38) [facility] REPLACEMENT/REVISION, CSF SHUNT Right 06/09/2023 REVISION OR REPLACEMENT CSF SHUNT (WRVU 11.43) performed by Rhoda Jimenez MD at [facility] MAIN OR PRO REPLACEMENT/REVISION, CSF SHUNT Right 06/29/2023 REVISION OR REPLACEMENT CSF SHUNT (WRVU 11.43) performed by Rhoda Jimenez MD at [facility] CSI PRO RESECT SMALL INTEST, SINGL RESEC/ANAS N/A 07/03/2023 @BOWEL RESECTION, SMALL INTESTINE SINGLE ANASTOMOSIS (WRVU 20.82) performed by Frank Murray MD at [facility] MAIN OR PRO UNLISTED PROCEDURE NERVOUS SYSTEM Right 05/24/2022 EXPLORATION VENTRICULO-PERITONEAL SHUNT (WRVU 25.48) performed by Rhoda Jimenez MD at [facility] MAIN OR SHOULDER SURGERY ULNAR TUNNEL RELEASE [...] BP BP (Arterial Line): -- Lines/Drains/Airways: PIV 09/23/23 2109 20 gauge median cubital vein (antecubital fossa), [...] 09/23/2023 6:29 PM) Result Value WORKSTATION ID [id number] Impression Right ventriculopleural shunt without kink or discontinuity identified. Thank you for letting us participate in the care of this patient. If you are a health care provider and have any questions regarding this report, please contact the number below. For patients who have questions please contact the health lawn care specialist that requested your imaging first. Head wo Contrast (Generic) (Exam End: 09/23/2023 8:01 PM) Result Value WORKSTATION ID [id number] Impression Unchanged caliber of the ventricles. Thank you for letting us participate in the care of this patient. If you are a health care provider and have any questions regarding this report, please contact the number below. For patients who have questions please contact the health lawn care specialist that requested your imaging first. : Physical [...] Deng Fuentes Urgency Level: FYI Callback Number: [phone] The following Message was sent: [I] - Callback:[phone] Costa, drain output 8cc over 2hr, paging per order as under 10cc - Deng Fuentes The following status was returned from the service observer chief: Page for [phone] successfully sent to [phone] [...] Valles MD - 09/23/2023 8:56 PM EDT [facility] NEUROSURGERY ENGINE ASSEMBLER SHUNT TAP NOTE Date: 09/24/23 Patient: Chapin [...] Sterile gloves used with 23G butterfly needle. [place] identified. Clear appearing CSF aspirated after 1 attempt. A total of 2cc of CSF was collected and sent for CSF studies. Band-Aid placed over site of needle insertion. Patient tolerated procedure well. Plan: -F/u CSF studies Richard Valles MD 09/24/23 7:57 AM documented in this [...] who provides additional history. PMH congenial hydrocephalus. 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 Last revision June 2023, ED Course: [...] 09/23/2023 6:29 PM) Result Value WORKSTATION ID [id number] Impression Right ventriculopleural shunt without kink or discontinuity identified. Thank you for letting us participate in the care of this patient. If you are a health care provider and have any questions regarding this report, please contact the number below. For patients who have questions please contact the health lawn care specialist that requested your imaging first. Neurosurgery consult IV fluids Assessment/plan: R/o shunt infection Neurosurgery consult pending at time of shift change. Care to oncoming team Annita Dhaliwal MD 09/23/232147 * Derek Monson MD - 09/23/2023 7:06 PM EDT ED Resident Note HPI: Chapin Costa is a 52 y.o. male with past medical history significant for congenital hydrocephalus with retinal ENGINE ASSEMBLER shunt placement in 1973, most recent shunt [...] place, and time. ED Course as of 09/23/233 ThuSep 23, 20231903 WBC(!): 10.8 1904 CRP: 3.6 CT Head wo Contrast (Generic) Final Result Unchanged caliber of the ventricles. Thank you for letting us participate in the care of this patient. If you are a health care provider and have any questions regarding this report, please contact the number below. For patients who have questions please contact the health lawn care specialist that requested your imaging first. Shunt Series Final Result Right ventriculopleural shunt without kink or discontinuity identified. Thank you for letting us participate in the care of this patient. If you are a health care provider and have any questions regarding this report, please contact the number below. For patients who have questions please contact the health lawn care specialist that requested your imaging first. Procedures Assessment and Plan: 52 y.o. male with past medical history significant for congenital hydrocephalus with retinal ENGINE ASSEMBLER shunt placement in 1973, most recent shunt [...] tap and admission. Derek Monson MD Resident 09/23/23 7176 Associated attestation - Annita Dhaliwal MD - [...] case involve critical care? No * Primo Story, LIZA - 09/23/2023 6:01 PM EDT Images from the original note were not included. Brief Provider in triage note 52 y.o. 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 Primo Story APRN 09/23/23 180 documented in this encounter Miscellaneous Notes * [...] Operative Note Patient Name: Chapin Costa : [id number] MR#: [id number] Case Date: 09/24/2023 Surgeon: Surgeons and Role: * hRoda Jimenez MD - Primary * Mo Marcus [...] Jimenez MD - 10/09/2023 1:42 PM EDT [facility] Operative Note Patient Name: Chapin Costa : [id number] MR#: [id number] Case Date: 10/09/2023 Surgeon: Surgeons and Role: [...] and chest, this is marked with green ouzinkie. The patient was taken back to the operating by anesthesia. General endotracheal anesthesia was obtained without difficulty. The patient was positioned supine, his head was turned slightly toward the right and a cerebellar, such as the left occiput was exposed. The head was now registered to the neuronavigation system using [employer]. Landmarks were used to verify orientation, and accuracy. We planned a trajectory from the left parietal occipital junction to the center of the left frontal horn. The left occipital lobe was now shaved over the entry site. The right frontal EVD was pulled sterilely, and the drain exit site was sutured with a single 4-0 Monocryl in [id number] fashion. The entire left head and chest [...] paperwork on file: Yes Decision Maker Name: MotherCarlos Fregoso Decision Maker Contact Information: Functional status [...] time Plan going forward: Met with mother Chanel at bedside. They acknowledge LOS pending need [...] more alert and active today, A/O x4, 06/27 strengths -Upon morning assessment, the pt's EVD [...] Appropriate) * Consult Note - Robin Sood [facility] - 09/29/2023 6:35 AM EDT [facility] Pharmacokinetics Note Drug: Vancomycin Pharmacokinetic target: Ctrough 15-20 mg/L Current regimen: 1250 mg IV every 12 hours Recent measured serum creatinine values: 09/29/2023 01:45 1.07 mg/dL 09/27/2023 03:09 1.07 mg/dL 09/26/2023 03:30 1.15 mg/dL Assessment: Analysis of the most recent level(s) using [employer] gives the following patient-specific pharmacokinetic parameters: CL: [...] INFECTIOUS DISEASE PROGRESS NOTE Reason for Consult: ENGINE ASSEMBLER Shunt Infection Consulting Service: Neurosurgery Consulting Attending: Rhoda Jimenez MD Admission Date: 09/23/2023 Interval Events Chapin Costa is a 52 y.o. 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 States that his ALICEA and [...] IR All Drainage Procedures Bentley Arceo MD [facility] INTERVENTIONL RAD PRO ALVEOLOPLASTY W EXTRACTIONS, 4 OR MORE TEETH, PER QUADRANT N/A 10/18/2020 ALVEOPLASTY,IN CONJUNCTION WITH EXTRACTIONS,PER QUADRANT,ENT (WRVU 4.06) performed by Shan Rivero MD at [facility] OSC PRO EXTRACTION, ERUPTED TOOTH OR EXPOSED ROOT N/A 10/18/2020 EXTRACTION, ERUPTED TOOTH OR EXPOSED ROOT (WRVU 0.62) performed by Shan Rivero MD at [facility] OSC PRO IMPACT TOOTH REM BONY W/COMP N/A 10/18/2020 SURGICAL EXTRACTIONS, REMOVAL OF IMPACTED TOOTH, COMPLETELY BONY WITH UNUSUAL SURGICAL COMPLICATIONS (WRVU 2.91) performed by Shan Rivero MD at [facility] OSC PRO IMPACT TOOTH REMOV COMP BONY N/A 10/18/2020 SURGICAL EXTRACTIONS, REMOVAL OF IMPACTED TOOTH, COMPLETELY BONY (WRVU 1.93) performed by Shan Rivero MD at [facility] OSC PRO REMOVAL ERUPTED TOOTH WITH ELEVATION OF MUCOPERIOSTEAL FLAP Bilateral 10/18/2020 SURGICAL EXTRACTIONS REQUIRING ELEVATION OF MUCOPERIOSTEAL FLAP AND REMOVAL OF BONE OR SECTION OF TOOTH (WRVU 1.09) performed by Shan Rivero MD at [facility] OSC PRO REMOVAL, COMPLETE CSF SHUNT, W/O REPLACE Right 06/20/2023 @REMOVAL OF COMPLETE CSF SHUNT, W/O REPLACEMENT (WRVU 7.38) performed by Frank Murray MD at [facility] OR PRO REMOVAL, COMPLETE CSF SHUNT, W/O REPLACE N/A 09/24/2023 @REMOVAL OF COMPLETE CSF SHUNT, W/O REPLACEMENT (WRVU 7.38) performed by Rhoda Jimenez MD at [facility] OR PRO REPLACEMENT/REVISION, CSF SHUNT Right 06/09/2023 REVISION OR REPLACEMENT CSF SHUNT (WRVU 11.43) performed by Rhoda Jimenez MD at [facility] MAIN OR PRO REPLACEMENT/REVISION, CSF SHUNT Right 06/29/2023 REVISION OR REPLACEMENT CSF SHUNT (WRVU 11.43) performed by Rhoda Jimenez MD at [facility] CSI PRO RESECT SMALL INTEST, SINGL RESEC/ANAS N/A 07/03/2023 @BOWEL RESECTION, SMALL INTESTINE SINGLE ANASTOMOSIS (WRVU 20.82) performed by Frank Murray MD at [facility] MAIN OR PRO STEREOTACTIC CPTR ASSTD PX CRANIAL, INTRADURAL N/A 09/24/2023 STEREOTACTIC COMPUTER-ASSTD NAVIGATIONAL CRANIAL INTRADURAL (WRVU 3.75) performed by Rhoda Jimenez MD at [facility] MAIN OR PRO TWIST HOLE SKULL, IMPLANT CATH/DEVICE 09/24/2023 @TWIST DRILL HOLE, IMPLANT VENTRICULAR OR ICP MONITOR. CATH. (WRVU 4.99) performed by Rhoda Jimenez MD at [facility] MAIN OR PRO UNLISTED PROCEDURE NERVOUS SYSTEM Right 05/24/2022 EXPLORATION VENTRICULO-PERITONEAL SHUNT (WRVU 25.48) performed by Rhoda Jimenez MD at [facility] MAIN OR PRO VENTRICULO-CISTERNOSTOMY Right 09/24/2023 @VENTRICULOCISTERNOSTOMY (WRVU 22.58) performed by Rhoda Jimenez MD at [facility] MAIN OR SHOULDER SURGERY ULNAR TUNNEL RELEASE [...] Negative 07/02/20231952 BILIRUBINUA Negative 07/02/20231952 Microbiology: Prelim LIABILITY CLAIMS MANAGER shunt culture growing Gram Positive Rods Antimicrobials: Vancomycin CTX d/c 09/23 Flagyl d/c 09/23 Imaging/diagnostics: CT Head 09/22, no change in caliber of ventricles Impression: Chapin Costa is a 52 y.o. 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 Today he has an elevated white count which could be post surgical. Pt has GPR's growing on the prelim LIABILITY CLAIMS MANAGER culture. The multitude of organisms this could [...] . Please page ID Red team (pager [phone]) with questions or concerns. Jong Maria, DO Internal Medicine PGY-2 Pager: [phone] Epic Chat 09/25/2023 Associated attestation - Leighton [...] WBCs (93% PMNs) with protein 30 and [id number]. This is higher than the 4 WBCs on the fluid obtained on 09/23/23 off of the ENGINE ASSEMBLER shunt. Gram stain negative, culture pending from [...] have all improved since removal of the ENGINE ASSEMBLER shunt. I will reach out to Dr. Jimenez (Neurosurgery) regarding plans for a new ENGINE ASSEMBLER shunt. Mr. Costa's WBC count was up [...] INFECTIOUS DISEASE CONSULTATION NOTE Reason for Consult: ENGINE ASSEMBLER Shunt Infection Consulting Service: Neurosurgery Consulting Attending: Rhoda Jimenez MD Admission Date: 09/23/2023 History of Present Illness: Chapin Costa is a 52 y.o. 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 Previously had a ENGINE ASSEMBLER shunt which was complicated by an abdominal [...] IR All Drainage Procedures Bentley Arceo MD [facility] INTERVENTIONL RAD PRO ALVEOLOPLASTY W EXTRACTIONS, 4 OR MORE TEETH, PER QUADRANT N/A 10/18/2020 ALVEOPLASTY,IN CONJUNCTION WITH EXTRACTIONS,PER QUADRANT,ENT (WRVU 4.06) performed by Shan Rivero MD at [facility] OSC PRO EXTRACTION, ERUPTED TOOTH OR EXPOSED ROOT N/A 10/18/2020 EXTRACTION, ERUPTED TOOTH OR EXPOSED ROOT (WRVU 0.62) performed by Shan Rivero MD at [facility] OSC PRO IMPACT TOOTH REM BONY W/COMP N/A 10/18/2020 SURGICAL EXTRACTIONS, REMOVAL OF IMPACTED TOOTH, COMPLETELY BONY WITH UNUSUAL SURGICAL COMPLICATIONS (WRVU 2.91) performed by Shan Riveor MD at [facility] OSC PRO IMPACT TOOTH REMOV COMP BONY N/A 10/18/2020 SURGICAL EXTRACTIONS, REMOVAL OF IMPACTED TOOTH, COMPLETELY BONY (WRVU 1.93) performed by Shan Rivero MD at [facility] OSC PRO REMOVAL ERUPTED TOOTH WITH ELEVATION OF MUCOPERIOSTEAL FLAP Bilateral 10/18/2020 SURGICAL EXTRACTIONS REQUIRING ELEVATION OF MUCOPERIOSTEAL FLAP AND REMOVAL OF BONE OR SECTION OF TOOTH (WRVU 1.09) performed by Shan Rivero MD at [facility] OSC PRO REMOVAL, COMPLETE CSF SHUNT, W/O REPLACE Right 06/20/2023 @REMOVAL OF COMPLETE CSF SHUNT, W/O REPLACEMENT (WRVU 7.38) performed by Frank [facility]PLACEMENT/REVISION, CSF SHUNT Right 06/09/2023 REVISION OR REPLACEMENT CSF SHUNT (WRVU 11.43) performed by Rhoda Jimenez MD at [facility] MAIN OR PRO REPLACEMENT/REVISION, CSF SHUNT Right 06/29/2023 REVISION OR REPLACEMENT CSF SHUNT (WRVU 11.43) performed by Rhoda Jimenez MD at [facility] CSI PRO RESECT SMALL INTEST, SINGL RESEC/ANAS N/A 07/03/2023 @BOWEL RESECTION, SMALL INTESTINE SINGLE ANASTOMOSIS (WRVU 20.82) performed by Frank Murray MD at [facility] MAIN OR PRO UNLISTED PROCEDURE NERVOUS SYSTEM Right 05/24/2022 EXPLORATION VENTRICULO-PERITONEAL SHUNT (WRVU 25.48) performed by Rhoda Jimenez MD at [facility] MAIN OR SHOULDER SURGERY ULNAR TUNNEL RELEASE [...] Negative 07/02/20231952 BILIRUBINUA Negative 07/02/20231952 Microbiology: Prelim LIABILITY CLAIMS MANAGER shunt culture growing Gram Positive Rods Antimicrobials: Vancomycin CTX Flagyl Imaging/diagnostics: CT Head 09/22, no change in caliber of ventricles Impression: Chapin Costa is a 52 y.o. 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 Pt has GPR's growing on the prelim LIABILITY CLAIMS MANAGER culture. The multitude of organisms this could [...] . Please page ID Red team (pager [phone]) with questions or concerns. Jong Maria, DO Internal Medicine PGY-2 Pager: [phone] Epic Chat 09/24/2023 Associated attestation - Leighton [...] he is nows/p complete removal of his ENGINE ASSEMBLER shunt on 09/24/23 with placement of an EVD. Shunt culture from 09/23/23is growing GPRs, and cultures from 09/24/23 are pending. We have recommended IV vancomycin monotherapy for what appears to be a monomicrobial Gram positive infection. The two GPRs that most commonly cause LIABILITY CLAIMS MANAGER shunt infections are Cutibacterium and Corynebacterium. Dr. Maria's note also mentions Listeria, for which vancomycin is not recommended in LIABILITY CLAIMS MANAGER infections, but this is not a common cause of CNSshunt infections. CSF analysis on 09/23/23 showed only 4 WBCs, with a normal glucose (65), and a protein of 70. This is relevant, as 10 days may be sufficient after shunt removal. In general, it is recommended to resample the CSF in 48hrs for culture. If negative, then ENGINE ASSEMBLER shunt can be replaced. Leighton Carmona MD * Brief Op Note - Mo Marcus MD - 09/24/2023 11:01 AM EDT Brief Operative Note Patient Name: Chapin Costa : [id number] MR#: [id number] Case Date: 09/24/2023 Surgeon: Surgeons and Role: [...] Jimenez MD - 09/24/2023 10:03 AM EDT [facility] Operative Note Patient Name: Chapin Costa : [id number] MR#: [id number] Case Date: 09/24/2023 Surgeon: Surgeons and Role: [...] the 3D thin slicehead CT using the Coupad system. Navigational registration was checked for accuracy [...] Tracy Fregoso Court Appointed Guardian(s) Contact Information: [phone] Guardianship paperwork on file?: Yes If AD's have not been completed the following surrogate would be surrogate decision maker per [place] surrogate decision making law. (Only good for 180 days) Any patient receiving care in [place] must abide by [place] law. The hierarchy for surrogate decision making [...] (i) The agent with financial power of tax attorney or a conservator appointed in accordance [...] or living in a nursing home (including now)?: No In the past 12 months has the electric, gas, oil, or water company threatened [...] Current DME: none Home Address confirmed as: [address] [place] [address] [address] [place] [address] Social & Family Supports: All names listed below confirmed with patient as current and correct Extended Emergency Contact Information Primary Emergency Contact: Tracy Fregoso Address: [address] Mobile Relation: Guardianship Secondary Emergency Contact: RICH FREGOSO Address: [address] Mobile Relation: Step parent Current Care Provided [...] Yes ; Prescription Coverage: Yes Preferred Pharmacy: [facility], [place] - [address] [facility] [address] [facility] [place] [address] Status: Patient is a : No Primary Care Provider confirmed: MARVA Gordon [phone] Patient/Caregiver Goals of Treatment: Potential Needs for [...] unspecified chronicity pattern, unspecified headache type [R51.9]. [employer] Spanish [employer] called patient's guardian/mother (Tracy-macrina) to obtain all the information for this [...] of care as indicated. Macie Menezes RN, Pager-[phone] * Consult Note - Sumit Hill, [facility] - 09/24/2023 1:28 AM EDT TelePharmacy Home [...] Sources used to compile medication list: [x] Mosa Records medication list [x] SureScripts/Dispense Report [] PCP/Specialist [...] 40 mg (not 10 mg) Additional Notes: [employer]ched[employer] med list (only pharmacy to fill medications) [...] starting 09/23/2023 until 09/23/2023 Type and screen ([facility]/DULCE MARIA) Blood Bank Routine One Time for 1 Occurrences starting 09/24/2023 until 09/24/2023 documented as of this encounter Procedures Procedure Name Priority Date/Time Associated Diagnosis Comments BASIC METABOLIC PANEL Routine 10/10/2023 4:16 AM EDT XR SHUNT SERIES Routine 10/09/2023 8:[address] HEAD WO CONTRAST (GENERIC) Routine 6:39 PM EDT Stereotactic Cptr Asstd Px Cranial, Intradural (52103) 10/09/2023 12:22 PM EDT Hydrocephalus MODIFIER,STEALTH 2,KINEVO 2023 12:22 PM EDT Hydrocephalus Create Shunt:Ventric-Peritoneal (44351) 10/09/2023 12:22 PM EDT Hydrocephalus STEREOTACTIC COMPUTER-ASSTD NAVIGATIONAL CRANIAL INTRADURAL Routine 10/09/2023 7:15 AM EDT VENTRICULO-PERITONEAL,-PLEUR A L,-OTHER SHUNT Routine 10/09/2023 7:15 AM EDT ABORH RECHECK (PATIENT HISTORY FOUND) Routine 10/09/2023 6:50 AM EDT TYPE AND SCREEN ([facility]/DULCE MARIA) Routine 10/09/2023 6:50 AM EDT HC PARTIAL THROMBOPLASTIN TIME Routine 10/09/2023 5:13 AM EDT PROTHROMBIN TIME Routine 10/09/2023 5:13 AM EDT CBC (WITH DIFF) Routine 10/09/2023 5:13 AM EDT BASIC METABOLIC PANEL Routine 10/09/2023 5:13 AM EDT IMPLANTABLE DEVICES SCAN 024 12:[address] HEAD WO CONTRAST (GENERIC) Routine 4:09 AM EDT BASIC METABOLIC PANEL Routine 10/08/2023 1:15 AM EDT CBC (WITH DIFF) Routine 10/07/2023 12:15 AM EDT BASIC METABOLIC PANEL Routine 10/07/2023 12:15 AM EDT SEDIMENTATION RATE Routine 10/06/2023 8:46 AM EDT BASIC METABOLIC PANEL Routine 10/06/2023 8:46 AM EDT CRP, ACUTE INFLAMMATION Add-On 10/05/19 24 8:16 PM EDT BASIC METABOLIC PANEL Routine [...] EDT CT HEAD WO CONTRAST (GENERIC) Routine 5:05 AM EDT POTASSIUM Routine 10/03/2023 10:49 PM EDT OSMOLALITY Add-On 10/03/2023 10:49 PM EDT BASIC METABOLIC PANEL STAT Add-On 10/03/2023 10:49 PM EDT BASIC METABOLIC PANEL STAT 10/03/2023 8:53 PM EDT CBC (WITH DIFF) Routine 10/03/2023 4:13 AM EDT BASIC METABOLIC PANEL Routine 10/03/2023 4:[address] HEAD WO CONTRAST (GENERIC) STAT 2:[address] HEAD WO CONTRAST (GENERIC) STAT 10:[address] HEAD WO CONTRAST (GENERIC) STAT 4:34 PM EDT CBC (WITH DIFF) Routine 10/01/2023 5:38 AM EDT BASIC METABOLIC PANEL Routine 10/01/2023 5:38 AM EDT PATHOLOGY FLUID REVIEW Routine 1:19 PM EDT CSF DESCRIPTION Routine 09/30/2023 1:19 PM EDT CSF CELL COUNT Routine 09/30/2023 1:19 PM EDT LIABILITY CLAIMS MANAGER SHUNT CULTURE Routine 09/30/2023 1:19 PM EDT PROTEIN LEVEL CSF Routine 09/30/2023 1:19 PM EDT GLUCOSE LEVEL CSF Routine 09/30/2023 1:19 PM EDT VANCOMYCIN LEVEL, RANDOM Routine 024 1:45 AM EDT CBC (WITH DIFF) Routine [...] LEVEL CSF Routine 09/25/2023 12:25 PM EDT LIABILITY CLAIMS MANAGER SHUNT CULTURE Routine 09/25/2023 12:24 PM EDT HEMOGRAM Routine 09/25/2023 3:20 AM EDT DIFFERENTIAL, AUTOMATED Routine 09/25/19 3:20 AM EDT CBC (WITH DIFF) Routine 09/25/2023 3:20 AM EDT PHOSPHORUS Routine 09/25/2023 3:20 AM EDT MAGNESIUM Routine 09/25/2023 3:20 AM EDT BASIC METABOLIC PANEL STAT 09/25/2023 3:[address] HEAD WO CONTRAST (GENERIC) Routine 4:31 PM EDT VENTRICULOCISTERNOSTOMY Routine 09/24/19 10:54 AM EDT TWIST DRILL HOLE, IMPLANT VENTRICULAR OR ICP MONITOR. CATH. Routine 09/24/2023 10:53 AM EDT ANAEROBIC CULTURE Routine 09/24/2023 10:30 AM EDT HC CONC. FOR INFECTIOUS AGENTS Routine 09/24/2023 10:30 AM EDT AFB CULTURE Routine 09/24/2023 10:30 AM EDT BODY FLUID CULTURE, AEROBIC Routine 02/2023 10:30 AM EDT FUNGUS CULTURE Routine 09/24/2023 10:30 AM EDT STEREOTACTIC COMPUTER-ASSTD NAVIGATIONAL CRANIAL INTRADURAL Routine 09/24/2023 [...] DESC 1 STAT 09/23/2023 11:30 PM EDT LIABILITY CLAIMS MANAGER SHUNT CULTURE STAT 09/23/2023 11:30 PM EDT PROTEIN LEVEL CSF STAT 09/23/2023 11:30 PM EDT GLUCOSE LEVEL CSF STAT 09/23/2023 11:30 PM EDT L-LACTATE2 WHOLE BLOOD Routine 11:[address] HEAD WO CONTRAST (GENERIC) STAT 8:01 PM EDT XR SHUNT SERIES STAT [...] wo Contrast (Generic) (11/12/2023 3:41 PM EDT) Anki WORKSTATION ID [id number] RAD Anatomical Region Laterality Modality Head Computed Tomogra phy Impressions 11/12/2023 4:18 PM EDT Interval reduced caliber of the supratentorial ventricles. Thank you for letting us participate in the care of this patient. ??If you are a health care provider and have any questions regarding this report, please contact the number below. ??For patients who have questions please contact the health lawn care specialist that requested your imaging first. ? Narrative [...] patients who have questions please contactthe health lawn care specialist that requested your imaging first. Electronically signed by: HAIM Song Formerly [facility], 1928–1983([phone]), at 11/12/2023 4:18 PM Rhoda Jimenez MD IM CT ORDERABLES * (ABNORMAL) Basic Metabolic Panel (10/10/2023 4:16 AM EDT) Glucose 121 65 - 199 mg/dL 10/10/2023 4:54 AM [facility] Comment:Glucose Concentratio n >=200 mg/dL plus symptoms is consistent with Diabetes Mellitus. Blood Urea Nitrogen 15 10 - 20 mg/dL 10/10/2023 4:54 AM [facility] Creatinine 1.12 0.80 - 1.50 mg/dL 10/10/2023 4:54 AM [facility] Sodium 137 135 - 145 mMol/L 10/10/2023 4:54 AM [facility] Potassium 4.4 3.5 - 5.0 mMol/L 10/10/2023 4:54 AM [facility] Chloride 104 98 - 107 mMol/L 10/10/2023 4:54 AM [facility] Carbon Dioxide 19(L) 22 - 31 mMol/L 10/10/2023 4:54 AM [facility] Anion Gap 14 5 - 15 mMol/L 10/10/2023 4:54 AM [facility] Calcium 9.3 8.5 - 10.5 mg/dL 10/10/2023 4:54 AM [facility] Est Glomerular Filtration Rate - Male 80 mL/min/1. 73 m?? 10/10/2023 4:54 AM [facility] Comment: This patient's estimated [...] AM EDT Rhoda Jimenez MD CHEMISTRY ORDERABLES [facility] [place] [place] [address] * XR Shunt Series (10/09/2023 8:42 PM EDT) WORKSTATION ID [id number] RAD Anatomical Region Laterality Modality N/A Digital [...] who have questions please contact the health lawn care specialist that requested your imaging first. ? Narrative [...] bowel. Bilateral lungs are clear. Procedure Note Sin, Aria Gilmore MD - 10/10/2023 EXAMINATION: XR [...] patients who have questions please contactthe health lawn care specialist that requested your imaging first. Rhoda Jimenez MD IMG DX ORDERABLES * CT Head wo Contrast (Generic) (10/09/2023 6:39 PM EDT) Anki WORKSTATION ID [id number] RAD Anatomical Region Laterality Modality Head Computed [...] who have questions please contact the health lawn care specialist that requested your imaging first. ? Narrative 10/10/2023 8:59 AM EDT EXAMINATION: CT [...] medial right mastoid air cells. The left regulatory affairs strategy specialist cells are clear. The middle ears are [...] patients who have questions please contactthe health lawn care specialist that requested your imaging first. Rhoda Jimenez MD IMG CT ORDERABLES * ABORH RECHECK (PATIENT HISTORY FOUND) (10/09/2023 6:50 AM EDT) ABORH Recheck Progress Complete 10/09/2023 9:01 AM EDT [facility] Blood VENOUS BLOOD SPECIMEN / Unknown IP Care Team Draw / Unknown 10/09/2023 6:50 AM EDT 10/09/2023 7:09 AM EDT Rhoda Jimenez MD BLOOD BANK LAB ORDER BELKIS [facility] [place] [place] [address] * Type and screen ([facility]/DULCE MARIA) (10/09/2023 6:50 AM EDT) Pathologist [facility] ABORH Type A POSITIVE 10/09/2023 8:52 AM EDT [facility] PATIENT HISTORY Found 10/09/2023 8:52 AM EDT [facility] Expires at [id number] on: 10/12/2023 10/09/2023 8:52 AM EDT [facility] ANTIBODY SCREEN AUTOMATED Negative 10/09/2023 8:52 AM EDT [facility] T&S only valid at [facility] 10/09/2023 8:52 AM EDT [facility] Blood VENOUS BLOOD SPECIMEN / Unknown IP Care Team Draw / Unknown 10/09/2023 6:50 AM EDT 10/09/2023 7:09 AM EDT Narrative [facility] - 10/09/2023 8:52 AM EDT This Type and Screen result is only valid at the [facility] Rhoda Jimenez MD BLOOD BANK LAB ORDER BELKIS [facility] [place] [place] [address] * (ABNORMAL) CBC (with Diff) (10/09/2023 5:13 AM EDT) [facility] White Blood Cell 11.19(H) 4.00 - 9.50 x10(3)/mc L 10/09/2023 5:[address] [facility] Red Blood Cell 5.26 4.58 - 5.54 x10(6)/mc L 10/09/2023 5:[address] [facility] Hemoglobin 15.2 13.7 - 16.5 g/dL 10/09/2023 5:[address] [facility] Hematocrit 44.8 40.5 - 48.5 % 10/09/2023 5:[address] [facility] Mean Cell Volume 85.2 82.9 - 93.1 fL 10/09/2023 5:44 AM [facility] Mean Cell Hemoglobin 28.9 27.5 - 32.1 pg 10/09/2023 5:44 AM [facility] Mean Cell Hemoglobin Concentration 33.9 32.0 - 35.7 g/dL 10/09/2023 5:44 AM [facility] Platelet 265 145 - 357 x10(3)/mc L 10/09/2023 5:44 AM [facility] Mean Platelet Volume 8.6 7.6 - 12.9 fL 10/09/2023 5:44 AM [facility] RDW Standard Deviation 40.2 36.0 - 45.0 fL 10/09/2023 5:44 AM [facility] RDW coefficient of variation 12.9 11.4 - 13.8 % 10/09/2023 5:44 AM [facility] NRBC% auto 0.0 % 10/09/2023 5:44 AM [facility] NRBC Absolute 0.00 0.00 - 0.00 x10(3)/mc L 10/09/2023 5:44 AM [facility] Neutrophil % 57.0 % 10/09/2023 5:44 AM [facility] Neutrophil Absolute (ANC) - Automated 6.38(H) 1.70 - 6.10 x10(3)/mc L 10/09/2023 5:44 AM [facility] Lymph % 34.6 % 10/09/2023 5:44 AM [facility] Lymph Absolute 3.87(H) 0.90 - 3.20 x10(3)/mc L 10/09/2023 5:44 AM [facility] Monocyte % 5.0 % 10/09/2023 5:44 AM [facility] Monocyte Absolute 0.56 0.30 - 0.90 x10(3)/mc L 10/09/2023 5:[address] [facility] Eos % 2.6 % 10/09/2023 5:[address] [facility] Eos Absolute 0.29 0.00 - 0.40 x10(3)/mc L 10/09/2023 5:[address] [facility] Basophil % 0.5 % 10/09/2023 5:[address] [facility] Baso Absolute 0.06 0.00 - 0.10 x10(3)/mc L 10/09/2023 5:[address] [facility] Immature Gran % 0.3 % 5:[address] [facility] Immature Gran Absolute 0.03 0.00 - 0.04 x10(3)/mc L 10/09/2023 5:[address] [facility] Blood VENOUS BLOOD SPECIMEN / Unknown IP Care Team Draw / Unknown 10/09/2023 5:13 AM EDT 10/09/2023 5:23 AM EDT Rhoda Jimenez MD HEMATOLOGY ORDERABLE S [facility] [place] [address] * (ABNORMAL) Basic Metabolic Panel (10/09/2023 5:13 AM EDT) Glucose 122 65 - 199 mg/dL 10/09/2023 6:[address] [facility] Comment:Glucose Concentratio n >=200 mg/dL plus symptoms is consistent with Diabetes Mellitus. Blood Urea Nitrogen 14 10 - 20 mg/dL 10/09/2023 6:[address] [facility] Creatinine 1.08 0.80 - 1.50 mg/dL 10/09/2023 6:[address] [facility] Sodium 136 135 - 145 mMol/L 10/09/2023 6:[address] [facility] Potassium 4.1 3.5 - 5.0 mMol/L 10/09/2023 6:[address] [facility] Chloride 105 98 - 107 mMol/L [facility] Carbon Dioxide 18(L) 22 - 31 mMol/L 10/09/2023 6:[address] [facility] Anion Gap 13 5 - 15 mMol/L 10/09/2023 6:[address] [facility] Calcium 9.0 8.5 - 10.5 mg/dL 10/09/2023 6:[address] [facility] Est Glomerular Filtration Rate - Male 84 mL/min/1. 73 m?? 10/09/2023 6[facility] Comment: This patient's estimated GFR [...] AM EDT Rhoda Jimenez MD CHEMISTRY ORDERABLES [facility] [place] [address] * APTT (10/09/2023 5:13 AM EDT) Pathologist [facility] Partial Thromboplastin Time 29 25 - 37 sec 10/09/2023 5:[address] [facility] Comment: The PTT is NOT appropriate for heparin monitoring. Use the Anti-Xa level for heparin monitoring (HEP UFH) or LMWH monitoring (HEP LMW). A PTT less than 37 seconds generally indicates adequate hemostasis. Blood VENOUS BLOOD SPECIMEN / Unknown IP Care Team Draw / Unknown 10/09/2023 5:13 AM EDT 10/09/2023 5:23 AM EDT Rhoda Jimenez MD HEMATOLOGY ORDERABLE S Performing Organization Address [facility] Co de Phone Number [facility] [place] [address] * Prothrombin Time (10/09/2023 5:13 AM EDT) Prothrombin Time 11.6 9.4 - 12.5 sec 10/09/2023 5:[address] [facility] International Normalization Ratio 1.0 <=4.9 10/09/2023 5:[address] [facility] Comment: An INR < 2.0 [...] EDT Rhoda Jimenez MD HEMATOLOGY ORDERABLE S Performing Organization Address [facility] Co de Phone Number [facility] [place] [address] * Scan Doc: Implantable Devices (10/09/2023 12:00 AM EDT) Narrative 10/09/2023 12:00 AM EDT Ordered by an unspecified provider. Scanning Provider MEDIA MGR SCAN EXT O RDR/RSLT * CT Head wo Contrast (Generic) (10/08/2023 4:09 AM EDT) WORKSTATION ID [id number] RAD Anatomical Region Laterality Modality Head Computed [...] who have questions please contact the health lawn care specialist that requested your imaging first. ? Electronically signed by: HAIM Marquez [facility]ly [facility], [facility] ([phone]), at 10/08/2023 6:17 AM Narrative 10/08/2023 6:17 [...] patients who have questions please contactthe health lawn care specialist that requested your imaging first. Rhoda Jimenez MD IMG CT ORDERABLES * (ABNORMAL) Basic Metabolic Panel (10/08/2023 1:15 AM EDT) Glucose 124 65 - 199 mg/dL 10/08/2023 1:55 AM [facility] Comment:Glucose Concentratio n >=200 mg/dL plus symptoms is consistent with Diabetes Mellitus. Blood Urea Nitrogen 14 10 - 20 mg/dL 10/08/2023 1:55 AM [facility] Creatinine 1.07 0.80 - 1.50 mg/dL 10/08/2023 1:55 AM [facility] Sodium 135 135 - 145 mMol/L 10/08/2023 1:55 AM [facility] Potassium 4.0 3.5 - 5.0 mMol/L 10/08/2023 1:55 AM [facility] Chloride 103 98 - 107 mMol/L 10/08/2023 1:55 AM [facility] Carbon Dioxide 18(L) 22 - 31 mMol/L 10/08/2023 1:55 AM [facility] Anion Gap 14 5 - 15 mMol/L 10/08/2023 1:55 AM [facility] Calcium 9.1 8.5 - 10.5 mg/dL 10/08/2023 1:55 AM [facility] Est Glomerular Filtration Rate - Male 85 mL/min/1. 73 m?? 10/08/2023 1:[address] [facility] Comment: This patient's estimated GFR [...] AM EDT Rhoda Jimenez MD CHEMISTRY ORDERABLES [facility] [place] [address] * (ABNORMAL) CBC (with Diff) (10/07/2023 12:15 AM EDT) White Blood Cell 12.73(H) 4.00 - 9.50 x10(3)/mc L [facility]/07[facility]23 [facility] Red Blood Cell 4.89 4.58 - 5.54 x10(6)/mc L 10/07/2023 12:[address] [facility] Hemoglobin 14.4 13.7 - 16.5 g/dL 10/07/2023 12:40 AM [facility] Hematocrit 42.1 40.5 - 48.5 % 10/07/2023 12:40 AM [facility] Mean Cell Volume 86.1 82.9 - 93.1 fL 10/07/2023 12:[facility] Mean Cell Hemoglobin 29.4 27.5 - 32.1 pg 10/07/2023 12:40 AM [facility] Mean Cell Hemoglobin Concentration 34.2 32.0 - 35.7 g/dL 10/07/2023 12:40 AM [facility] Platelet 250 145 - 357 x10(3)/mc L 10/07/2023 12:40 AM [facility] Mean Platelet Volume 8.8 7.6 - 12.9 fL 10/07/2023 12:40 AM [facility] RDW Standard Deviation 40.5 36.0 - 45.0 fL 10/07/2023 12:40 AM [facility] RDW coefficient of variation 12.9 11.4 - 13.8 % 10/07/2023 12:40 AM [facility] NRBC% auto 0.0 % 10/07/2023 12:40 AM [facility] NRBC Absolute 0.00 0.00 - 0.00 x10(3)/mc L 10/07/2023 12:40 AM [facility] Neutrophil % 61.9 % 10/07/2023 12:40 AM [facility] Neutrophil Absolute (ANC) - Automated 7.87(H) 1.70 - 6.10 x10(3)/mc L 10/07/2023 12:40 AM [facility] Lymph % 30.5 % 10/07/2023 12:40 AM [facility] Lymph Absolute 3.88(H) 0.90 - 3.20 x10(3)/mc L 10/07/2023 12:40 AM [facility] Monocyte % 4.9 % 10/07/2023 12:40 AM [facility] Monocyte Absolute 0.63 0.30 - 0.90 x10(3)/mc L 10/07/2023 12:40 AM [facility] Eos % 1.8 % 10/07/2023 12:40 AM [facility] Eos Absolute 0.23 0.00 - 0.40 x10(3)/mc L 10/07/2023 12:[address] [facility] Basophil % 0.6 % 10/07/2023 12:[address] [facility] Baso Absolute 0.08 0.00 - 0.10 x10(3)/mc L 10/07/2023 12:[address] [facility] Immature Gran % 0.3 % 12:[address] [facility] Immature Gran Absolute 0.04 0.00 - 0.04 x10(3)/mc L 10/07/2023 12:[address] [facility] Blood VENOUS BLOOD SPECIMEN / Unknown IP Care Team Draw / Unknown 10/07/2023 12:15 AM EDT 10/07/2023 12:32 AM EDT Rhoda Jimenez MD HEMATOLOGY ORDERABLE S [facility] [place] [address] * (ABNORMAL) Basic Metabolic Panel (10/07/2023 12:15 AM EDT) Glucose 121 65 - 199 mg/dL 10/07/2023 1:[address] [facility] Comment:Glucose Concentratio n >=200 mg/dL plus symptoms is consistent with Diabetes Mellitus. Blood Urea Nitrogen 15 10 - 20 mg/dL 10/07/2023 1:[address] [facility] Creatinine 1.16 0.80 - 1.50 mg/dL 10/07/2023 1:[address] [facility] Sodium 138 135 - 145 mMol/L 10/07/2023 1:[address] [facility] LABORATORY Potassium 4.0 3.5 - 5.0 mMol/L 10/07/2023 1:[address] [facility] Chloride 106 98 - 107 mMol/L 10/07/2023 1:[address] [facility] Carbon Dioxide 18(L) 22 - 31 mMol/L 10/07/2023 1:[address] [facility] Anion Gap 14 5 - 15 mMol/L 10/07/2023 1:[address] [facility] Calcium 9.4 8.5 - 10.5 mg/dL 10/07/2023 1:[address] [facility] Est Glomerular Filtration Rate - Male 77 mL/min/1. 73 m?? 10/07/2023 1:[address] [facility] Comment: This patient's estimated GFR [...] AM EDT Rhoda Jimenez MD CHEMISTRY ORDERABLES [facility] [place] [address] * Sedimentation rate (10/06/2023 8:46 AM EDT) Sedimentation Rate Automated 36 2 - 37 mm/hr 10/06/2023 10:[address] [facility] Blood VENOUS BLOOD SPECIMEN / Unknown IP Care Team Draw / Unknown 10/06/2023 8:46 AM EDT 10/06/2023 9:00 AM EDT Rhoda Jimenez MD HEMATOLOGY ORDERABLE S [facility] [place] [address] * (ABNORMAL) Basic Metabolic Panel (10/06/2023 8:46 AM EDT) Glucose 164 65 - 199 mg/dL [facility] Comment:Glucose Concentratio n >=200 mg/dL plus symptoms is consistent with Diabetes Mellitus. Blood Urea Nitrogen 14 10 - 20 mg/dL 10/06/2023 9:[address] [facility] Creatinine 1.08 0.80 - 1.50 mg/dL 10/06/2023 9:32 AM [facility] Sodium 137 135 - 145 mMol/L 10/06/2023 9:32 AM [facility] Potassium 3.6 3.5 - 5.0 mMol/L 10/06/2023 9:32 AM [facility] Chloride 104 98 - 107 mMol/L 10/06/2023 9:32 AM [facility] Carbon Dioxide 19(L) 22 - 31 mMol/L 10/06/2023 9:32 AM [facility] Anion Gap 14 5 - 15 mMol/L 10/06/2023 9:32 AM [facility] Calcium 9.6 8.5 - 10.5 mg/dL 10/06/2023 9:32 AM [facility] Est Glomerular Filtration Rate - Male 84 mL/min/1. 73 m?? 10/06/2023 9:32 AM [facility] Comment: This patient's estimated [...] Jimenez MD CHEMISTRY ORDERABLES Performing Organization Address City/[facility]/ZIP Co de Phone Number [facility] [place] [address] * (ABNORMAL) CRP, acute inflammation (10/05/2023 8:16 PM EDT) C-Reactive Protein 11.4(H) <=4.9 mg/L 10/06/2023 7:[address] [facility] Blood VENOUS BLOOD SPECIMEN / Unknown IP Care Team Draw / Unknown 10/05/2023 8:16 PM EDT 10/05/2023 8:22 PM EDT Rhoda Jimenez MD CHEMISTRY ORDERABLES Performing Organization Address City/[facility]/ZIP Co de Phone Number [facility] [place] [address] * (ABNORMAL) Basic Metabolic Panel (10/05/2023 8:16 PM EDT) Glucose 140 65 - 199 mg/dL 10/05/2023 9:[address] [facility] Comment:Glucose Concentratio n >=200 mg/dL plus symptoms is consistent with Diabetes Mellitus. Blood Urea Nitrogen 15 10 - 20 mg/dL 10/05/2023 9:[address] [facility] Creatinine 1.10 0.80 - 1.50 mg/dL 10/05/2023 9:[address] [facility] Sodium 139 135 - 145 mMol/L 10/05/2023 9:[address] [facility] Potassium 3.4(L) 3.5 - 5.0 mMol/L 10/05/2023 9:[address] [facility] Chloride 105 98 - 107 mMol/L 10/05/2023 9:[address] [facility] Carbon Dioxide 19(L) 22 - 31 mMol/L 10/05/2023 9:[address] [facility] Anion Gap 15 5 - 15 mMol/L 10/05/2023 9:[address] [facility] Calcium 9.4 8.5 - 10.5 mg/dL 10/05/2023 9:[address] [facility] Est Glomerular Filtration Rate - Male 82 mL/min/1. 73 m?? 10/05/2023 9:[address] [facility] Comment: This patient's estimated GFR [...] PM EDT Rhoda Jimenez MD CHEMISTRY ORDERABLES [facility] [place] [address] * XR Shunt Series (10/05/2023 9:43 AM EDT) WORKSTATION ID [id number] RAD Anatomical Region Laterality Modality N/A Digital Radiogra phy Impressions 10/05/2023 10:15 AM EDT New Right EVD placement. Thank you for letting us participate in the care of this patient. ??If you are a health care provider and have any questions regarding this report, please contact the number below. ??For patients who have questions please contact the health lawn care specialist that requested your imaging first. ? Narrative [...] patients who have questions please contactthe health lawn care specialist that requested your imaging first. Rhoda Jimenez MD IMG DX ORDERABLES * (ABNORMAL) Basic Metabolic Panel (10/05/2023 8:17 AM EDT) Glucose 160 65 - 199 mg/dL 10/05/2023 8:59 AM [facility] Comment:Glucose Concentratio n >=200 mg/dL plus symptoms is consistent with Diabetes Mellitus. Blood Urea Nitrogen 16 10 - 20 mg/dL 10/05/2023 8:59 AM [facility] Creatinine 1.02 0.80 - 1.50 mg/dL 10/05/2023 8:59 AM [facility] Sodium 135 135 - 145 mMol/L 10/05/2023 8:59 AM [facility] Potassium 3.5 3.5 - 5.0 mMol/L 10/05/2023 8:59 AM [facility] Chloride 101 98 - 107 mMol/L 10/05/2023 8:59 AM [facility] Carbon Dioxide 19(L) 22 - 31 mMol/L 10/05/2023 8:59 AM [facility] Anion Gap 15 5 - 15 mMol/L 10/05/2023 8:59 AM [facility] Calcium 9.7 8.5 - 10.5 mg/dL 10/05/2023 8:59 AM [facility] Est Glomerular Filtration Rate - Male 90 mL/min/1. 73 m?? 10/05/2023 8:59 AM [facility] Comment: This patient's estimated [...] Jimenez MD CHEMISTRY ORDERABLES Performing Organization Address [facility] Co de Phone Number [facility] [place] [address] * Vancomycin, trough (10/05/2023 4:30 AM EDT) Pathologist [facility] Vancomycin, Trough 17.4 10.0 - 20.0 mg/L 10/05/2023 9:[address] [facility] Comment: Varies according to infection source. Blood VENOUS BLOOD SPECIMEN / Unknown IP Care Team Draw / Unknown 10/05/2023 4:30 AM EDT 10/05/2023 7:28 AM EDT Rhoda Jimenez MD CHEMISTRY ORDERABLES Performing Organization Address [facility] Co de Phone Number [facility] [place] [address] * (ABNORMAL) CBC (with Diff) (10/05/2023 12:25 AM EDT) Pathologist [facility] White Blood Cell 12.42(H) 4.00 - 9.50 x10(3)/mc L 10/05/2023 12:[address] [facility] Red Blood Cell 5.12 4.58 - 5.54 x10(6)/mc L 10/05/2023 12:[address] [facility] Hemoglobin 15.0 13.7 - 16.5 g/dL 10/05/2023 12:[address] [facility] Hematocrit 43.5 40.5 - 48.5 % 10/05/2023 12:[address] [facility] Mean Cell Volume 85.0 82.9 - 93.1 fL 10/05/2023 12:56 AM [facility] Mean Cell Hemoglobin 29.3 27.5 - 32.1 pg 10/05/2023 12:56 AM [facility] Mean Cell Hemoglobin Concentration 34.5 32.0 - 35.7 g/dL 10/05/2023 12:56 AM [facility] Platelet 249 145 - 357 x10(3)/mc L 10/05/2023 12:56 AM [facility] Mean Platelet Volume 8.8 7.6 - 12.9 fL 10/05/2023 12:56 AM [facility] RDW Standard Deviation 39.7 36.0 - 45.0 fL 10/05/2023 12:56 AM [facility] RDW coefficient of variation 12.8 11.4 - 13.8 % 10/05/2023 12:56 AM [facility] NRBC% auto 0.0 % 10/05/2023 12:56 AM [facility] NRBC Absolute 0.00 0.00 - 0.00 x10(3)/mc L 10/05/2023 12:56 AM [facility] Neutrophil % 59.9 % 10/05/2023 12:56 AM [facility] Neutrophil Absolute (ANC) - Automated 7.44(H) 1.70 - 6.10 x10(3)/mc L 10/05/2023 12:56 AM [facility] Lymph % 32.0 % 10/05/2023 12:56 AM [facility] Lymph Absolute 3.97(H) 0.90 - 3.20 x10(3)/mc L 10/05/2023 12:56 AM [facility] Monocyte % 5.9 % 10/05/2023 12:56 AM [facility] Monocyte Absolute 0.73 0.30 - 0.90 x10(3)/mc L 10/05/2023 12:[address] [facility] Eos % 1.5 % 10/05/2023 12:[address] [facility] Eos Absolute 0.19 0.00 - 0.40 x10(3)/mc L 10/05/2023 12:[address] [facility] Basophil % 0.5 % 10/05/2023 12:[address] [facility] Baso Absolute 0.06 0.00 - 0.10 x10(3)/mc L 10/05/2023 12:[address] [facility] Immature Gran % 0.2 % 12:[address] [facility] Immature Gran Absolute 0.03 0.00 - 0.04 x10(3)/mc L 10/05/2023 12:[address] [facility] Blood VENOUS BLOOD SPECIMEN / Unknown IP Care Team Draw / Unknown 10/05/2023 12:25 AM EDT 10/05/2023 12:49 AM EDT Rhoda Jimenez MD HEMATOLOGY ORDERABLE S [facility] [place] [address] * (ABNORMAL) Basic Metabolic Panel (10/04/2023 8:16 PM EDT) Glucose 152 65 - 199 mg/dL 10/04/2023 9:[address] [facility] Comment:Glucose Concentratio n >=200 mg/dL plus symptoms is consistent with Diabetes Mellitus. Blood Urea Nitrogen 18 10 - 20 mg/dL 10/04/2023 9:[address] [facility] Creatinine 1.02 0.80 - 1.50 mg/dL 10/04/2023 9:[address] [facility] Sodium 135 135 - 145 mMol/L 10/04/2023 9:[address] [facility] Potassium 3.3(L) 3.5 - 5.0 mMol/L 10/04/2023 9:[address] [facility] Chloride 101 98 - 107 mMol/L 10/04/2023 9:[address] [facility] Carbon Dioxide 19(L) 22 - 31 mMol/L 10/04/2023 9:[address] [facility] Anion Gap 15 5 - 15 mMol/L 10/04/2023 9:[address] [facility] Calcium 9.6 8.5 - 10.5 mg/dL 10/04/2023 9:[address] [facility] Est Glomerular Filtration Rate - Male 90 mL/min/1. 73 m?? 10/04/2023 9:[address] [facility] Comment: This patient's estimated GFR [...] PM EDT Rhoda Jimenez MD CHEMISTRY ORDERABLES [facility] [place] [address] * Sodium, urine, random (10/04/2023 9:34 AM EDT) Sodium, Urine 22 mMol/L 10/04/2023 7:[address] [facility] Urine URINE SPECIMEN / Unknown Non Blood Collection / Unknown 10/04/2023 9:34 AM EDT 10/04/2023 9:43 AM EDT Rhoda Jimenez MD URINE ORDERABLES Performing Organization Address [facility] Co de Phone Number [facility] [place] [address] * Osmolality, urine, random (10/04/2023 9:34 AM EDT) Osmolality, Urine 798 50 - 1,200 mOsm/kg 10/04/2023 1:[address] [facility] Urine URINE SPECIMEN / Unknown Non Blood Collection / Unknown 10/04/2023 9:34 AM EDT 10/04/2023 9:43 AM EDT Rhoda Jimenez MD URINE ORDERABLES Performing Organization Address [facility] de Phone Number [facility] [place] [address] * Creatinine, urine, random (10/04/2023 9:34 AM EDT) Creatinine, Urine 230 mg/dL 10/04/2023 10:[address] [facility] Urine URINE SPECIMEN / Unknown Non Blood Collection / Unknown 10/04/2023 9:34 AM EDT 10/04/2023 9:43 AM EDT Rhoda Jimenez MD URINE ORDERABLES Performing Organization Address [facility] de Phone Number [facility] [place] [address] * CT Head wo Contrast (Generic) (10/04/2023 5:05 AM EDT) WORKSTATION ID [id number] RAD Anatomical Region Laterality Modality Head Computed [...] who have questions please contact the health lawn care specialist that requested your imaging first. ? Electronically signed by: Jackson Jules DO, [facility] ??([phone]), at 10/04/2023 9:13 AM Narrative 10/04/2023 9:13 [...] patients who have questions please contactthe health lawn care specialist that requested your imaging first. Rhoda Jimenez MD IMG CT ORDERABLES * (ABNORMAL) Basic Metabolic Panel (10/03/2023 10:49 PM EDT) Glucose 112 65 - 199 mg/dL 10/04/2023 6:[address] [facility] Comment:Glucose Concentratio n >=200 mg/dL plus symptoms is consistent with Diabetes Mellitus. Blood Urea Nitrogen 17 10 - 20 mg/dL 10/04/2023 6:39 PM [facility] Creatinine 1.09 0.80 - 1.50 mg/dL 10/04/2023 6:39 PM [facility] Sodium 134(L) 135 - 145 mMol/L 10/04/2023 6:39 PM [facility] Potassium 4.2 3.5 - 5.0 mMol/L 10/04/2023 6:39 PM [facility] Chloride 100 98 - 107 mMol/L 10/04/2023 6:39 PM [facility] Carbon Dioxide 15(L) 22 - 31 mMol/L 10/04/2023 6:39 PM [facility] Anion Gap 19(H) 5 - 15 mMol/L 10/04/2023 6:39 PM [facility] Calcium 9.6 8.5 - 10.5 mg/dL 10/04/2023 6:[address] [facility] Est Glomerular Filtration Rate - Male 83 mL/min/1. 73 m?? 10/04/2023 6:[address] [facility] Comment: This patient's estimated GFR [...] PM EDT Rhoda Jimenez MD CHEMISTRY ORDERABLES [facility] [place] [address] * Osmolality (10/03/2023 10:49 PM EDT) Osmolality 285 275 - 295 mOsm/kg 10/04/2023 6:[address] [facility] Blood VENOUS BLOOD SPECIMEN / Unknown IP Care Team Draw / Unknown 10/03/2023 10:49 PM EDT 10/03/2023 10:55 PM EDT Rhoda Jimenez MD CHEMISTRY ORDERABLES [facility] [place] [address] * Potassium (10/03/2023 10:49 PM EDT) Potassium 3.8 3.5 - 5.0 mMol/L 10/03/2023 11:[address] [facility] Blood VENOUS BLOOD SPECIMEN / Unknown IP Care Team Draw / Unknown 10/03/2023 10:49 PM EDT 10/03/2023 10:55 PM EDT Rhoda Jimenez MD CHEMISTRY ORDERABLES [facility] [place] [address] * (ABNORMAL) Basic Metabolic Panel (10/03/2023 8:53 PM EDT) Glucose 132 65 - 199 mg/dL [facility] Comment:Glucose Concentratio n >=200 mg/dL plus symptoms is consistent with Diabetes Mellitus. Blood Urea Nitrogen 16 10 - 20 mg/dL 10/03/2023 10:15 PM [facility] Creatinine 0.99 0.80 - 1.50 mg/dL 10/03/2023 10:15 PM [facility] Sodium 131(L) 135 - 145 mMol/L 10/03/2023 10:15 PM [facility] Potassium 10/03/2023 10:15 PM [facility] Comment:Unable to report due to hemolysis. Chloride 100 98 - 107 mMol/L 10/03/2023 10:15 PM [facility] Carbon Dioxide 17(L) 22 - 31 mMol/L 10/03/2023 10:15 PM [facility] Anion Gap 14 5 - 15 mMol/L 10/03/2023 10:15 PM [facility] Calcium 9.0 8.5 - 10.5 mg/dL 10/03/2023 10:15 PM [facility] Est Glomerular Filtration Rate - Male 93 mL/min/1. 73 m?? 10/03/2023 10:15 PM [facility] Comment: This patient's estimated [...] PM EDT Rhoda Jimenez MD CHEMISTRY ORDERABLES [facility] [place] [address] * (ABNORMAL) CBC (with Diff) (10/03/2023 4:13 AM EDT) White Blood Cell 13.41(H) 4.00 - 9.50 x10(3)/mc L 10/[facility]2023 [facility] Red Blood Cell 5.55(H) 4.58 - 5.54 x10(6)/mc L 10/03/2023 4:23 AM [facility] Hemoglobin 16.3 13.7 - 16.5 g/dL 10/03/2023 4:23 AM [facility] Hematocrit 47.3 40.5 - 48.5 % 10/03/2023 4:23 AM [facility] Mean Cell Volume 85.2 82.9 - 93.1 fL 10/03/2023 4:23 AM [facility] Mean Cell Hemoglobin 29.4 27.5 - 32.1 pg 10/03/2023 4:23 AM [facility] Mean Cell Hemoglobin Concentration 34.5 32.0 - 35.7 g/dL 10/03/2023 4:23 AM [facility] Platelet 239 145 - 357 x10(3)/mc L 10/03/2023 4:23 AM [facility] Mean Platelet Volume 8.5 7.6 - 12.9 fL 10/03/2023 4:23 AM [facility] RDW Standard Deviation 40.3 36.0 - 45.0 fL 10/03/2023 4:23 AM [facility] RDW coefficient of variation 12.9 11.4 - 13.8 % 10/03/2023 4:23 AM [facility] NRBC% auto 0.0 % 10/03/2023 4:23 AM [facility] NRBC Absolute 0.00 0.00 - 0.00 x10(3)/mc L 10/03/2023 4:23 AM [facility] Neutrophil % 65.1 % 10/03/2023 4:23 AM [facility] Neutrophil Absolute (ANC) - Automated 8.73(H) 1.70 - 6.10 x10(3)/mc L 10/03/2023 4:23 AM [facility] Lymph % 26.1 % 10/03/2023 4:23 AM [facility] Lymph Absolute 3.50(H) 0.90 - 3.20 x10(3)/mc L 10/03/2023 4:23 AM [facility] Monocyte % 6.5 % 10/03/2023 4:23 AM [facility] Monocyte Absolute 0.87 0.30 - 0.90 x10(3)/mc L 10/03/2023 4:23 AM [facility] Eos % 1.4 % 10/03/2023 4:23 AM [facility] Eos Absolute 0.19 0.00 - 0.40 x10(3)/mc L 10/03/2023 4:23 AM [facility] Basophil % 0.5 % 10/03/2023 4:23 AM [facility] Baso Absolute 0.07 0.00 - 0.10 x10(3)/mc L 10/03/2023 4:[address] [facility] Immature Gran % 0.4 % 4:23 AM [facility] Immature Gran Absolute 0.05(H) 0.00 - 0.04 x10(3)/mc L 10/03/2023 4:23 AM [facility] Blood VENOUS BLOOD SPECIMEN / Unknown IP Care Team Draw / Unknown 10/03/2023 4:13 AM EDT 10/03/2023 4:19 AM EDT Rhoda Jimenez MD HEMATOLOGY ORDERABLE S [facility] [place] [address] * (ABNORMAL) Basic Metabolic Panel (10/03/2023 4:13 AM EDT) Glucose 115 65 - 199 mg/dL 10/03/2023 4:49 AM [facility] Comment:Glucose Concentratio n >=200 mg/dL plus symptoms is consistent with Diabetes Mellitus. Blood Urea Nitrogen 18 10 - 20 mg/dL 10/03/2023 4:49 AM [facility] Creatinine 1.07 0.80 - 1.50 mg/dL 10/03/2023 4:49 AM [facility] Sodium 132(L) 135 - 145 mMol/L 10/03/2023 4:49 AM [facility] Potassium 3.7 3.5 - 5.0 mMol/L 10/03/2023 4:49 AM [facility] Chloride 101 98 - 107 mMol/L 10/03/2023 4:49 AM [facility] Carbon Dioxide 19(L) 22 - 31 mMol/L 10/03/2023 4:49 AM [facility] Anion Gap 12 5 - 15 mMol/L 10/03/2023 4:[address] [facility] Calcium 9.3 8.5 - 10.5 mg/dL 10/03/2023 4:[address] [facility] Est Glomerular Filtration Rate - Male 85 mL/min/1. 73 m?? 10/03/2023 4:[address] [facility] Comment: This patient's estimated GFR [...] AM EDT Rhoda Jimenez MD CHEMISTRY ORDERABLES [facility] [place] [address] * CT Head wo Contrast (Generic) (10/02/2023 2:48 PM EDT) [employer]ki WORKSTATION ID [id number] RAD Anatomical Region Laterality Modality Head Computed [...] who have questions please contact the health lawn care specialist that requested your imaging first. ? Narrative 10/02/2023 2:58 PM EDT EXAMINATION: CT HEAD WO CONTRAST (GENERIC) CLINICAL HISTORY: s/p R EVD re-placement TECHNIQUE: CT head performed without intravenous contrast administration. COMPARISON: 10/02/2023, 82, 09/24/2023 FINDINGS: Slight interval placement of the [...] patients who have questions please contactthe health lawn care specialist that requested your imaging first. Rhoda Jimenez MD IMG CT ORDERABLES * CT Head wo Contrast (Generic) (10/02/2023 10:16 AM EDT) WORKSTATION ID [id number] RAD Anatomical Region Laterality Modality Head Computed Tomogra phy Impressions 10/02/2023 10:43 AM EDT 1. ??Interval retraction of EVD with tip now terminating in the RIGHT frontal lobe cortex. 2. ??Unchanged hydrocephalus. I Cy Ortega discussed the results with Roberto Dsouza on 10/02/2023 10:28 AM and verified that the results were understood. Thank you for letting us participate in the care of this patient. ??If you are a health care provider and have any questions regarding this report, please contact the number below. ??For patients who have questions please contact the health lawn care specialist that requested your imaging first. ? Electronically signed by: HAIM Starr [facility], [facility]–1983 ([phone]), at 10/02/2023 10:43 AM Narrative 10/02/2023 10:43 AM EDT EXAMINATION: CT [...] patients who have questions please contactthe health lawn care specialist that requested your imaging first. Rhoda Jimenez MD IMG CT ORDERABLES * CT Head wo Contrast (Generic) (10/01/2023 4:34 PM EDT) WORKSTATION ID [id number] RAD Anatomical Region Laterality Modality Head Computed [...] who have questions please contact the health lawn care specialist that requested your imaging first. ? Narrative [...] patients who have questions please contactthe health lawn care specialist that requested your imaging first. Rhoda Jimenez MD IMG CT ORDERABLES * (ABNORMAL) CBC (with Diff) (10/01/2023 5:38 AM EDT) White Blood Cell 10.65(H) 4.00 - 9.50 x10(3)/mc L 10/01/2023 7:[address] [facility] Red Blood Cell 5.96(H) 4.58 - 5.54 x10(6)/mc L 10/01/2023 7:37 AM [facility] Hemoglobin 17.4(H) 13.7 - 16.5 g/dL 10/01/2023 7:37 AM [facility] Hematocrit 51.0(H) 40.5 - 48.5 % 10/01/2023 7:37 AM [facility] Mean Cell Volume 85.6 82.9 - 93.1 fL 10/01/2023 7:37 AM [facility] Mean Cell Hemoglobin 29.2 27.5 - 32.1 pg 10/01/2023 7:37 AM [facility] Mean Cell Hemoglobin Concentration 34.1 32.0 - 35.7 g/dL 10/01/2023 7:37 AM [facility] Platelet 252 145 - 357 x10(3)/mc L 10/01/2023 7:37 AM [facility] Mean Platelet Volume 9.3 7.6 - 12.9 fL 10/01/2023 7:37 AM [facility] RDW Standard Deviation 41.4 36.0 - 45.0 fL 10/01/2023 7:37 AM [facility] RDW coefficient of variation 13.2 11.4 - 13.8 % 10/01/2023 7:37 AM [facility] NRBC% auto 0.0 % 10/01/2023 7:37 AM [facility] NRBC Absolute 0.00 0.00 - 0.00 x10(3)/mc L 10/01/2023 7:37 AM [facility] Neutrophil % 55.2 % 10/01/2023 7:37 AM [facility] Neutrophil Absolute (ANC) - Automated 5.89 1.70 - 6.10 x10(3)/mc L 10/01/2023 7:37 AM [facility] Lymph % 35.8 % 10/01/2023 7:37 AM [facility] Lymph Absolute 3.81(H) 0.90 - 3.20 x10(3)/mc L 10/01/2023 7:37 AM [facility] Monocyte % 6.1 % 10/01/2023 7:37 AM [facility] Monocyte Absolute 0.65 0.30 - 0.90 x10(3)/mc L 10/01/2023 7:37 AM [facility] Eos % 2.0 % 10/01/2023 7:37 AM [facility] Eos Absolute 0.21 0.00 - 0.40 x10(3)/mc L 10/01/2023 7:37 AM [facility] Basophil % 0.6 % 10/01/2023 7:37 AM [facility] Baso Absolute 0.06 0.00 - 0.10 x10(3)/mc L 10/01/2023 7:37 AM [facility] Immature Gran % 0.3 % 7:37 AM [facility] Immature Gran Absolute 0.03 0.00 - 0.04 x10(3)/mc L 10/01/2023 7:37 AM [facility] Blood VENOUS BLOOD SPECIMEN / Unknown IP Care Team Draw / Unknown 10/01/2023 5:38 AM EDT 10/01/2023 7:29 AM EDT Rhoda Jimenez MD HEMATOLOGY ORDERABLE S [facility] [place] [address] * (ABNORMAL) Basic Metabolic Panel (10/01/2023 5:38 AM EDT) Glucose 103 65 - 199 mg/dL 10/01/2023 8:[address] [facility] Comment:Glucose Concentratio n >=200 mg/dL plus symptoms is consistent with Diabetes Mellitus. Blood Urea Nitrogen 18 10 - 20 mg/dL [facility] Creatinine 1.08 0.80 - 1.50 mg/dL 10/01/2023 8:18 AM [facility] Sodium 134(L) 135 - 145 mMol/L 10/01/2023 8:18 AM [facility] Potassium 3.9 3.5 - 5.0 mMol/L 10/01/2023 8:18 AM [facility] Chloride 99 98 - 107 mMol/L 10/01/2023 8:18 AM [facility] Carbon Dioxide 21(L) 22 - 31 mMol/L 10/01/2023 8:18 AM [facility] Anion Gap 14 5 - 15 mMol/L 10/01/2023 8:18 AM [facility] Calcium 9.7 8.5 - 10.5 mg/dL 10/01/2023 8:18 AM [facility] Est Glomerular Filtration Rate - Male 84 mL/min/1. 73 m?? 10/01/2023 8:18 AM [facility] Comment: This patient's estimated [...] Foundation Fasting Status No 10/01/2023 8:[address] [facility] Blood VENOUS BLOOD SPECIMEN / Unknown IP Care Team Draw / Unknown 10/01/2023 5:38 AM EDT 10/01/2023 7:29 AM EDT Rhoda Jimenez MD CHEMISTRY ORDERABLES [facility] [place] [address] * Pathology Fluid Review (09/30/2023 1:19 PM EDT) Pathology Interpretation Inflammatory cells including increased eosinophils seen 10/01/2023 12:[address] [facility] Cerebrospinal Fluid VENTRICULAR SHUNT / Unknown Non Blood Collection / Unknown 09/30/2023 1:19 PM EDT 09/30/2023 1:[address] [facility] - 10/01/2023 12:27 PM EDT [...] MD BODY FLUIDS AND STOO LS ORDERABLES [facility] [place] [address] * LIABILITY CLAIMS MANAGER Shunt Culture (09/30/2023 1:19 PM EDT) Central Nervous System Shunt Culture No growth at 10 days 10/10/2023 10:[address] [facility] Gram Stain Cytocentrifuge Gram Stain performed 10/10/2023 10:[address] [facility] Gram Stain Neutrophils seen 10/10/19 10:[address] [facility] Gram Stain No microorganisms seen 10/10/2023 10:[address] [facility] Cerebrospinal Fluid CEREBROSPINAL FLUID SPECIMEN OBTAINED VIA VENTRICULOPERITONEAL SHUNT / Unknown Non Blood Collection / Unknown 09/30/2023 1:19 PM EDT 09/30/2023 1:46 PM EDT Rhoda Jimenez MD MICROBIOLOGY - GENER AL ORDERABLES [facility] [place] [address] * CSF Description (09/30/2023 1:19 PM EDT) Tube Num CSF 2 09/30/2023 3:[address] [facility] Comment:Tube not collected. Tube Number CSF 1 09/30/2023 3:[address] [facility] Color, CSF Colorless 09/30/2023 3:[address] [facility] Appearance, CSF Clear 09/30/2023 3:[address] [facility] Total Vol, CSF 1.9 mL 09/30/2023 3:[address] [facility] Tube Num CSF 3 09/30/2023 3:[address] [facility] Comment:Tube not collected. Tube Num CSF 4 09/30/2023 3:[address] [facility] Comment:Tube not collected. Cerebrospinal Fluid VENTRICULAR SHUNT / Unknown Non Blood Collection / Unknown 09/30/2023 1:19 PM EDT 09/30/2023 1:26 PM EDT Rhoda Jimenez MD BODY FLUIDS AND STOO LS ORDERABLES [facility] [place] [address] * Glucose Level CSF (09/30/2023 1:19 PM EDT) Glucose, CSF 86 mg/dL 10/23/2023 2:[address] [facility] Comment:At equilibrium, CSF glucose concentration is approximately 60-80% of plasma glucose. Cerebrospinal Fluid VENTRICULAR SHUNT / Unknown Non Blood Collection / Unknown 09/30/2023 1:19 PM EDT 09/30/2023 1:[address] [facility] - 10/23/2023 2:25 PM EDT The previously reported component Glucose Raw Result is no longer being reported. Rhoda Jimenez MD BODY FLUIDS AND STOO LS ORDERABLES Performing Organization Address City/[facility]/ZIP Co de Phone Number [facility] [place] [address] * Protein Level CSF (09/30/2023 1:19 PM EDT) Pathologist [facility] Protein, CSF 16 mg/dL 09/30/2023 3:[address] [facility] Xanthochromati c, CSF Negative Negative 09/30/2023 3:[address] [facility] Cerebrospinal Fluid VENTRICULAR SHUNT / Unknown Non Blood Collection / Unknown 09/30/2023 1:19 PM EDT 09/30/2023 1:26 PM EDT Rhoda Jimenez MD BODY FLUIDS AND STOO LS ORDERABLES [facility] [place] [address] * CSF Cell Count (09/30/2023 1:19 PM EDT) AUTO NUC CSF CT 4 0 - 5 /mcl 4 3:[address] [facility] Comment:All body fluid resul ts should always be interpreted in light of the total clinical presentation of the patient, including clinical history, data from additional tests and other appropriate information. AUTO RBC CSF CT 209 /mcl 4 3:[address] [facility] Diff Performed CSF? Yes 09/30/2023 3:[address] [facility] Segmented Neutrophils, CSF 8 <=90 % 09/30/2023 3:[address] [facility] Lymphocyte, CSF 54 % 4 3:[address] [facility] Macrophage CSF 16 % 09/30/2023 3:[address] [facility] Eosinophil CSF 22 % 09/30/2023 3:[address] [facility] Total Cells, CSF 125 Cells 09/30/19 24 3:[address] [facility] Cerebrospinal Fluid VENTRICULAR SHUNT / Unknown Non Blood Collection / Unknown 09/30/2023 1:19 PM EDT 09/30/2023 1:26 PM EDT Rhoda Jimenez MD BODY FLUIDS AND STOO LS ORDERABLES Performing Organization Address City/State/[facility] Co de Phone Number [facility] [place] [address] * (ABNORMAL) CBC (with Diff) (09/29/2023 1:45 AM EDT) White Blood Cell 11.89(H) 4.00 - 9.50 x10(3)/mc L 09/29/2023 2:[address] [facility] Red Blood Cell 5.73(H) 4.58 - 5.54 x10(6)/mc L 09/29/2023 2:[address] [facility] Hemoglobin 16.6(H) 13.7 - 16.5 g/dL 09/29/2023 2:[address] [facility] Hematocrit 49.2(H) 40.5 - 48.5 % 09/29/2023 2:[address] [facility] Mean Cell Volume 85.9 82.9 - 93.1 fL 09/29/2023 2:[address] [facility] Mean Cell Hemoglobin 29.0 27.5 - 32.1 pg 09/29/2023 2:33 AM [facility] Mean Cell Hemoglobin Concentration 33.7 32.0 - 35.7 g/dL 09/29/2023 2:33 AM [facility] Platelet 266 145 - 357 x10(3)/mc L 09/29/2023 2:33 AM [facility] Mean Platelet Volume 9.2 7.6 - 12.9 fL 09/29/2023 2:33 AM [facility] RDW Standard Deviation 40.3 36.0 - 45.0 fL 09/29/2023 2:33 AM [facility] RDW coefficient of variation 13.1 11.4 - 13.8 % 09/29/2023 2:33 AM [facility] NRBC% auto 0.0 % 09/29/2023 2:33 AM [facility] NRBC Absolute 0.00 0.00 - 0.00 x10(3)/mc L 09/29/2023 2:33 AM [facility] Neutrophil % 54.0 % 09/29/2023 2:33 AM [facility] Neutrophil Absolute (ANC) - Automated 6.42(H) 1.70 - 6.10 x10(3)/mc L 09/29/2023 2:33 AM [facility] Lymph % 38.1 % 09/29/2023 2:33 AM [facility] Lymph Absolute 4.53(H) 0.90 - 3.20 x10(3)/mc L 09/29/2023 2:33 AM [facility] Monocyte % 4.1 % 09/29/2023 2:33 AM [facility] Monocyte Absolute 0.49 0.30 - 0.90 x10(3)/mc L 09/29/2023 2:33 AM [facility] Eos % 2.8 % 09/29/2023 2:[address] [facility] Eos Absolute 0.33 0.00 - 0.40 x10(3)/mc L 09/29/2023 2:[address] [facility] Basophil % 0.7 % 09/29/2023 2:[address] [facility] Baso Absolute 0.08 0.00 - 0.10 x10(3)/mc L 09/29/2023 2:[address] [facility] Immature Gran % 0.3 % 2:[address] [facility] Immature Gran Absolute 0.04 0.00 - 0.04 x10(3)/mc L 09/29/2023 2:[address] [facility] Blood VENOUS BLOOD SPECIMEN / Unknown IP Care Team Draw / Unknown 09/29/2023 1:45 AM EDT 09/29/2023 2:25 AM EDT Rhoda Jimenez MD HEMATOLOGY ORDERABLE S [facility] [place] [address] * (ABNORMAL) Basic Metabolic Panel (09/29/2023 1:45 AM EDT) Glucose 112 65 - 199 mg/dL 09/29/2023 3:[address] [facility] Comment:Glucose Concentratio n >=200 mg/dL plus symptoms is consistent with Diabetes Mellitus. Blood Urea Nitrogen 14 10 - 20 mg/dL 09/29/2023 3:[address] [facility] Creatinine 1.07 0.80 - 1.50 mg/dL 09/29/2023 3:[address] [facility] Sodium 137 135 - 145 mMol/L 09/29/2023 3:[address] [facility] Potassium 4.0 3.5 - 5.0 mMol/L 09/29/2023 3:[address] [facility] Chloride 102 98 - 107 mMol/L 09/29/2023 3:[address] [facility] Carbon Dioxide 21(L) 22 - 31 mMol/L 09/29/2023 3:[address] [facility] Anion Gap 14 5 - 15 mMol/L 09/29/2023 3:[address] [facility] Calcium 9.8 8.5 - 10.5 mg/dL 09/29/2023 3:[address] [facility] Est Glomerular Filtration Rate - Male 85 mL/min/1. 73 m?? 09/29/2023 3:[address] [facility] Comment: This patient's estimated GFR [...] Fasting Status No 09/29/2023 3:[address] [facility] Blood VENOUS BLOOD SPECIMEN / Unknown IP Care Team Draw / Unknown 09/29/2023 1:45 AM EDT 09/29/2023 2:25 AM EDT Rhoda Jimenez MD CHEMISTRY ORDERABLES [facility] [place] [address] * Vancomycin Level, Random (09/29/2023 1:45 AM EDT) Vancomycin, Random 21.2 mg/L 2023 3:[address] [facility] Comment:This level is for de termination of the patient's vancomycin xbco-ayfkm-ykz-curve (AUC) value. Contact the inpatient pharmacy for interpretation. Blood VENOUS BLOOD SPECIMEN / Unknown IP Care Team Draw / Unknown 09/29/2023 1:45 AM EDT 09/29/2023 2:25 AM EDT Rhoda Jimenez MD CHEMISTRY ORDERABLES [facility] [place] [address] * (ABNORMAL) Basic Metabolic Panel (non-fasting) (09/27/2023 3:09 AM EDT) Glucose 105 65 - 199 mg/dL 09/27/2023 3:[address] [facility] Comment:Glucose Concentratio n >=200 mg/dL plus symptoms is consistent with Diabetes Mellitus. Blood Urea Nitrogen 13 10 - 20 mg/dL 09/27/2023 3:55 AM [facility] Creatinine 1.07 0.80 - 1.50 mg/dL 09/27/2023 3:55 AM [facility] Sodium 138 135 - 145 mMol/L 09/27/2023 3:55 AM [facility] Potassium 3.7 3.5 - 5.0 mMol/L 09/27/2023 3:55 AM [facility] Chloride 105 98 - 107 mMol/L 09/27/2023 3:55 AM [facility] Carbon Dioxide 20(L) 22 - 31 mMol/L [facility] Anion Gap 13 5 - 15 mMol/L 09/27/2023 3:55 AM [facility] Calcium 9.6 8.5 - 10.5 mg/dL 09/27/2023 3:55 AM [facility] Est Glomerular Filtration Rate - Male 85 mL/min/1. 73 m?? 09/27/2023 3:55 AM [facility] Comment: This patient's estimated [...] Foundation Fasting Status No 09/27/2023 3:[address] [facility] Blood VENOUS BLOOD SPECIMEN / Unknown IP Care Team Draw / Unknown 09/27/2023 3:09 AM EDT 09/27/2023 3:20 AM EDT Henry Elder APRN CHEMISTRY ORDERABL ES [facility] [place] [address] * (ABNORMAL) CBC (with Diff) (09/27/2023 3:09 AM EDT) White Blood Cell 10.74(H) 4.00 - 9.50 x10(3)/mc L 09/27/2023 3:[address] [facility] Red Blood Cell 5.46 4.58 - 5.54 x10(6)/mc L 09/27/2023 3:25 AM [facility] Hemoglobin 15.7 13.7 - 16.5 g/dL 09/27/2023 3:25 AM [facility] Hematocrit 47.3 40.5 - 48.5 % 09/27/2023 3:25 AM [facility] Mean Cell Volume 86.6 82.9 - 93.1 fL 09/27/2023 [facility] Mean Cell Hemoglobin 28.8 27.5 - 32.1 pg 09/27/2023 3:25 AM [facility] Mean Cell Hemoglobin Concentration 33.2 32.0 - 35.7 g/dL 09/27/2023 3:25 AM [facility] Platelet 215 145 - 357 x10(3)/mc L 09/27/2023 3:25 AM [facility] Mean Platelet Volume 9.2 7.6 - 12.9 fL 09/27/2023 3:25 AM [facility] RDW Standard Deviation 41.4 36.0 - 45.0 fL 09/27/2023 3:25 AM [facility] RDW coefficient of variation 13.2 11.4 - 13.8 % 09/27/2023 3:25 AM [facility] NRBC% auto 0.0 % 09/27/2023 3:25 AM [facility] NRBC Absolute 0.00 0.00 - 0.00 x10(3)/mc L 09/27/2023 3:25 AM [facility] Neutrophil % 54.1 % 09/27/2023 3:25 AM [facility] Neutrophil Absolute (ANC) - Automated 5.82 1.70 - 6.10 x10(3)/mc L 09/27/2023 3:25 AM [facility] Lymph % 38.0 % 09/27/2023 3:25 AM [facility] Lymph Absolute 4.08(H) 0.90 - 3.20 x10(3)/mc L 09/27/2023 3:25 AM [facility] Monocyte % 5.2 % 09/27/2023 3:25 AM [facility] Monocyte Absolute 0.56 0.30 - 0.90 x10(3)/mc L 09/27/2023 3:25 AM [facility] Eos % 1.9 % 09/27/2023 3:25 AM [facility] Eos Absolute 0.20 0.00 - 0.40 x10(3)/mc L 09/27/2023 3:25 AM [facility] Basophil % 0.5 % 09/27/2023 3:[address] [facility] Baso Absolute 0.05 0.00 - 0.10 x10(3)/mc L 09/27/2023 3:[address] [facility] Immature Gran % 0.3 % 3:[address] [facility] Immature Gran Absolute 0.03 0.00 - 0.04 x10(3)/mc L 09/27/2023 3:[address] [facility] Blood VENOUS BLOOD SPECIMEN / Unknown IP Care Team Draw / Unknown 09/27/2023 3:09 AM EDT 09/27/2023 3:20 AM EDT Henry Elder MANAGER SERVICE DESK HEMATOLOGY ORDERAB LES Performing Organization Address City/[facility]/[place] [address] * Phosphorus (09/26/2023 3:31 AM EDT) Phosphorus 2.6 2.5 - 4.5 mg/dL 09/26/2023 4:[address] [facility] Blood VENOUS BLOOD SPECIMEN / Unknown IP Care Team Draw / Unknown 09/26/2023 3:31 AM EDT 09/26/2023 3:49 AM EDT Henry Elder MANAGER SERVICE DESK CHEMISTRY ORDERABL ES [facility] [place] [address] * Magnesium (09/26/2023 3:31 AM EDT) Magnesium 0.82 0.69 - 1.07 mMol/L 09/26/2023 5:[address] [facility] Blood VENOUS BLOOD SPECIMEN / Unknown IP Care Team Draw / Unknown 09/26/2023 3:31 AM EDT 09/26/2023 3:49 AM EDT Henrytiffany Lunajacob MANAGER SERVICE DESK CHEMISTRY ORDERABL ES [facility] [place] [address] * (ABNORMAL) CBC (with Diff) (09/26/2023 3:31 AM EDT) White Blood Cell 10.89(H) 4.00 - 9.50 x10(3)/mc L 09/26/2023 5:[address] [facility] Red Blood Cell 4.83 4.58 - 5.54 x10(6)/mc L 09/26/2023 5:[address] [facility] Hemoglobin 14.2 13.7 - 16.5 g/dL 09/26/2023 5:[address] [facility] Hematocrit 42.5 40.5 - 48.5 % 09/26/2023 5:[address] [facility] Mean Cell Volume 88.0 82.9 - 93.1 fL 09/26/2023 5:[address] [facility] Mean Cell Hemoglobin 29.4 27.5 - 32.1 pg 09/26/2023 5:[address] [facility] Mean Cell Hemoglobin Concentration 33.4 32.0 - 35.7 g/dL 09/26/2023 5:[address] [facility] Platelet 188 145 - 357 x10(3)/mc L 09/26/2023 5:[address] [facility] Mean Platelet Volume 10.1 7.6 - 12.9 fL 09/26/2023 5:[address] [facility] RDW Standard Deviation 42.5 36.0 - 45.0 fL 09/26/2023 5:[address] [facility] RDW coefficient of variation 13.2 11.4 - 13.8 % 09/26/2023 5:[address] [facility] NRBC% auto 0.0 % 09/26/2023 5:[address] [facility] NRBC Absolute 0.00 0.00 - 0.00 x10(3)/mc L 09/26/2023 5:29 AM [facility] Neutrophil % 59.4 % 09/26/2023 5:29 AM [facility] Neutrophil Absolute (ANC) - Automated 6.47(H) 1.70 - 6.10 x10(3)/mc L 09/26/2023 5:29 AM [facility] Lymph % 32.6 % 09/26/2023 5:29 AM [facility] Lymph Absolute 3.55(H) 0.90 - 3.20 x10(3)/mc L 09/26/2023 5:29 AM [facility] Monocyte % 5.8 % 09/26/2023 5:29 AM [facility] Monocyte Absolute 0.63 0.30 - 0.90 x10(3)/mc L 09/26/2023 5:29 AM [facility] Eos % 1.7 % 09/26/2023 5:29 AM [facility] Eos Absolute 0.19 0.00 - 0.40 x10(3)/mc L 09/26/2023 5:29 AM [facility] Basophil % 0.3 % 09/26/2023 5:29 AM [facility] Baso Absolute 0.03 0.00 - 0.10 x10(3)/mc L 09/26/2023 5:29 AM [facility] Immature Gran % 0.2 % 5:29 AM [facility] Immature Gran Absolute 0.02 0.00 - 0.04 x10(3)/mc L 09/26/2023 5:29 AM [facility] Blood VENOUS BLOOD SPECIMEN / Unknown IP Care Team Draw / Unknown 09/26/2023 3:31 AM EDT 09/26/2023 3:49 AM EDT Henry Elder APRN HEMATOLOGY ORDERAB LES Performing Organization Address City/[facility]/ZIP Co de Phone Number [facility] [place] [address] * Vancomycin, trough (09/26/2023 3:31 AM EDT) Vancomycin, Trough 16.9 10.0 - 20.0 mg/L 09/26/2023 4:[address] [facility] Comment: Varies according to infection source. Blood VENOUS BLOOD SPECIMEN / Unknown IP Care Team Draw / Unknown 09/26/2023 3:31 AM EDT 09/26/2023 3:49 AM EDT Rhoda Jimenez MD CHEMISTRY ORDERABLES Performing Organization Address City/[facility]/ZIP Co de Phone Number [facility] [place] [address] * Basic Metabolic Panel (09/26/2023 3:30 AM EDT) Glucose 104 65 - 199 mg/dL [facility] Comment:Diabetes: >=200 mg/d L plus symptoms Blood Urea Nitrogen 13 10 - 20 mg/dL [facility] Creatinine 1.15 0.80 - 1.50 mg/dL [facility] Sodium 139 135 - 145 mmol/L [facility] Potassium 4.2 3.5 - 5.0 mmol/L [facility] Comment: Please note: ??Patients with WBC >100,000 may have falsely elevated Potassium levels. ??For accurate Potassium quantification in these patients send serum separator tube (gold top) for subsequent determinations. ??Contact the Clinical Chemistry Laboratory if there are any questions. Chloride 107 98 - 107 mmol/L [facility] Carbon Dioxide 22 22 - 31 mmol/L [facility] Anion Gap 10 5 - 15 mmol/L [facility] Calcium 8.6 8.5 - 10.5 mg/dL [facility] Est Glomerular Filtration Rate 78 >=60 mL/min/1. 73 m?? [facility] Comment: This patient's estimated GFR [...] Comment Spec In Lab Henry Elder APRN CHEMISTRY ORDERABL ES Performing Organization Address [facility]/ZIP Co de Phone Number [facility] [place] [address] * Iron Stain, Body Fluid (09/25/2023 12:25 PM EDT) Iron Stain BF Type CSF [facility] Body Fluid Iron Stain, Fld See Comment [facility] Comment:Cerebrospinal fluid positive for hemosiderin. Cerebrospinal Fluid 09/25/19 12:25 PM EDT 09/25/2023 12:46 PM EDT Narrative Resulting Agency Comment Spec In Lab Sarika DURHAM HEMATOLOGY ORDERABL ES [facility] [place] [address] * (ABNORMAL) CSF Cell Count (09/25/2023 12:25 PM EDT) Tube # counted [address] [facility] AUTO NUC CSF CT 80(H) 0 - 5 /mcl [facility] Comment: If Nucleated CSF CT [...] clinical condition. RBC CSF CT 596 /mcl [facility] Segmented Neutrophils, CSF 93(Critic al) % [facility] Comment:Called by: jeff, Read back by: robin jones, Date/Time:09/25/23 14:24. Lymphocyte, CSF 2 % [facility] Macrophage CSF 5 % [facility] Comment: Hemosiderin suspected. To be confirmed by iron stain. Occassional WBC phagocytosis. Slide review per routine audit. Corrected report to add slide comments. Called by: CAMMY, Read back by: Josselyn Diaz, Date/Time:10/07/23 16:17. Corrected from 5 % [NA] on 10/07/23 16:17:42 EDT by Lela Abraham Total Cells, CSF 200 Cells [facility] Cerebrospinal Fluid 09/25/19 12:25 PM EDT 09/25/2023 12:46 PM EDT Narrative Resulting Agency Comment Spec In Lab Sarika E Delvasto PA BODY FLUIDS AND STO OLS ORDERABLES [facility] [place] [address] * CSF DESC 1 (09/25/2023 12:25 PM EDT) Tube Num CSF #[address] [facility] Color, CSF Colorless Colorless [facility] Appearance, CSF Clear Clear [facility] Total Vol, CSF 2.[address] [facility] Cerebrospinal Fluid 09/25/19 12:25 PM EDT 09/25/2023 12:46 PM EDT Narrative Resulting Agency Comment Spec In Lab Sarika E Delvasto PA BODY FLUIDS AND STO OLS ORDERABLES Performing Organization Address City/[facility]/ZIP Co de Phone Number [facility] [place] [address] * Glucose Level CSF (09/25/2023 12:25 PM EDT) Glucose, CSF 106 mg/dL [facility] Comment:CSF at equilibrium e quals approximately 60-80% of plasma glucose. Cerebrospinal Fluid 09/25/19 12:25 PM EDT 09/25/2023 12:46 PM EDT Narrative Resulting Agency Comment Spec In Lab Rhoda Jimenez MD BODY FLUIDS AND STOO LS ORDERABLES Performing Organization Address [facility] Co de Phone Number [facility] [place] [address] * Protein Level CSF (09/25/2023 12:25 PM EDT) Protein, CSF 32 15 - 45 mg/dL [facility] Comment:result rechecked-EWR Xanthochromia Neg [facility] Cerebrospinal Fluid 09/25/19 12:25 PM EDT 09/25/2023 12:46 PM EDT Narrative Resulting Agency Comment Spec In Lab Rhoda Jimenez MD BODY FLUIDS AND STOO LS ORDERABLES Performing Organization Address [facility] Co de Phone Number [facility] [place], [place] [id number] * LIABILITY CLAIMS MANAGER Shunt Culture (09/25/2023 12:24 PM EDT) Central Nervous System Shunt Culture No growth at [address] [facility] Gram Stain Cytocentrifuge Gram Stain performed Neutrophils seen No microorganisms seen. [facility] Cerebrospinal Shunt Fluid 09/25/2023 12:24 PM EDT 09/25/2023 1:00 PM EDT Narrative Resulting Agency Comment Spec In Lab Sarika DURHAM MICROBIOLOGY - GENE RAL ORDERABLES Performing Organization Address [facility]/ZIP Co de Phone Number [facility] [place] [address] * (ABNORMAL) Differential, Automated (09/25/2023 3:20 AM EDT) Neutrophil % 86.0 % [facility] Neutrophil Absolute 15.58(H) 1.70 - 6.10 x10(3)/mc L [facility] Lymph % 10.2 % [facility] Lymphocytes Abs 1.8 0.9 - 3.2 x10(3)/mc L [facility] Monocyte % 3.3 % [facility] Monocyte Abs 0.6 0.3 - 0.9 x10(3)/mc L [facility] Eos % 0.0 % [facility] Eosinophils Abs 0.0 0.0 - 0.4 x10(3)/ L [facility] Basophil % 0.1 % [facility] Baso Absolute 0.0 0.0 - 0.1 x10(3)/mc L [facility] Immature Gran % 0.40 % [facility] Comment: Immature granulocytes(IG's)percentage and absolute count will include metamyelocytes, myelocytes, and promyelocytes. Blood smears from CBCs yielding IG's will be scanned manually for concordance. If this scan disagrees with the automated IG or if promyelocytes are noted, a manual differential will be performed. Immature Gran Absolute 0.07(H) 0.00 - 0.04 x10(3)/mc L [facility] Blood 09/25/2023 3:20 AM EDT 09/25/2023 3:49 AM EDT Narrative Resulting Agency Comment Spec In Lab Henry Elder APRN HEMATOLOGY ORDERAB LES Performing Organization Address [facility]/ZIP Co de Phone Number [facility] [place] [address] * (ABNORMAL) Hemogram (09/25/2023 3:20 AM EDT) White Blood Cell 18.1(H) 4.0 - 9.5 x10(3)/mc L [facility] Red Blood Cell 5.10 4.58 - 5.54 x10(6)/mc L [facility] Hemoglobin 14.8 13.7 - 16.5 g/dL [facility] Hematocrit 43.6 40.5 - 48.5 % [facility] Mean Cell Volume 85.5 82.9 - 93.[address] [facility] Mean Cell Hemoglobin 29.0 27.5 - 32.[address] [facility] Mean Cell Hemoglobin Concentration 33.9 32.0 - 35.7 g/dL [facility] Platelet 237 145 - 357 x10(3)/ L [facility] RDW Standard Deviation 40.0 36.0 - 45.0 [facility] RDW coefficient of variation 12.9 11.4 - 13.8 % [facility] Mean Platelet Volume 10.0 7.6 - 12.[address] [facility] NRBC% auto 0.0 % [facility] NRBC Absolute 0.000 0.000 - 0.000 x10(3)/mc L [facility] Blood 09/25/2023 3:20 AM EDT 09/25/2023 3:49 AM EDT Narrative Resulting Agency Comment Spec In Lab Henry Elder MANAGER SERVICE DESK HEMATOLOGY ORDERAB LES [facility] [place] [address] * Phosphorus (09/25/2023 3:20 AM EDT) Phosphorus 3.0 2.5 - 4.5 mg/dL [facility] Blood 09/25/2023 3:20 AM EDT 09/25/2023 3:49 AM EDT Narrative Resulting Agency Comment Spec In Lab Henry Elder MANAGER SERVICE DESK CHEMISTRY ORDERABL ES Performing Organization Address City/[facility] Co de Phone Number [facility] [place] [address] * Magnesium (09/25/2023 3:20 AM EDT) Magnesium 0.83 0.69 - 1.07 mmol/L [facility] Blood 09/25/2023 3:20 AM EDT 09/25/2023 3:49 AM EDT Narrative Resulting Agency Comment Spec In Lab Henry Elder MANAGER SERVICE DESK CHEMISTRY ORDERABL ES Performing Organization Address [facility] Co de Phone Number [facility] [place] [address] * Basic Metabolic Panel (non-fasting) (09/25/2023 3:20 AM EDT) Glucose 133 65 - 199 mg/dL [facility] Comment:Diabetes: >=200 mg/d L plus symptoms Blood Urea Nitrogen 13 10 - 20 mg/dL [facility] Creatinine 1.08 0.80 - 1.50 mg/dL [facility] Sodium 141 135 - 145 mmol/L [facility] Potassium 4.2 3.5 - 5.0 mmol/L [facility] Comment: Please note: ??Patients with WBC >100,000 may have falsely elevated Potassium levels. ??For accurate Potassium quantification in these patients send serum separator tube (gold top) for subsequent determinations. ??Contact the Clinical Chemistry Laboratory if there are any questions. Chloride 107 98 - 107 mmol/L [facility] Carbon Dioxide 22 22 - 31 mmol/L [facility] Anion Gap 12 5 - 15 mmol/L [facility] Calcium 8.7 8.5 - 10.5 mg/dL [facility] Est Glomerular Filtration Rate 84 >=60 mL/min/1. 73 m?? [facility] Comment: This patient's estimated GFR [...] Agency Comment Spec In Lab Henry Elder MANAGER SERVICE DESK CHEMISTRY ORDERABL ES [facility] [place] [address] * CT Head wo Contrast (Generic) (09/24/2023 4:31 PM EDT) [employer] WORKSTATION ID [id number] DH RAD Anatomical Region Laterality Modality Head [...] who have questions please contact the health lawn care specialist that requested your imaging first. ? Narrative [...] patients who have questions please contactthe health lawn care specialist that requested your imaging first. Rhoda Jimenez MD IMG CT ORDERABLES * Anaerobic Culture (09/24/2023 10:30 AM EDT) Anaerobic Culture No anaerobic organisms isolated [facility] Fluid 09/24/2023 10:3 0 AM EDT 09/24/2023 11:49 AM EDT Comment:CSF Narrative Resulting Agency Comment Spec In Lab Rhoda Jimenez MD MICROBIOLOGY - [facility] AL ORDERABLES [facility] [place] [address] * Body Fluid Culture, Aerobic (09/24/2023 10:30 AM EDT) Body Fluid Culture No growth [facility] Gram Stain Cytocentrifuge Gram Stain performed No Neutrophils seen. No microorganisms seen. [facility] Fluid 09/24/2023 10:3 0 AM EDT 09/24/2023 11:49 AM EDT Comment:CSF Narrative Resulting Agency Comment Spec In Lab Rhoda Jimenez MD MICROBIOLOGY - GENER AL ORDERABLES Performing Organization Address [facility] Co de Phone Number [facility] [place] [address] * Fungus culture (09/24/2023 10:30 AM EDT) Fungus Culture No Fungus isolated [facility] Cerebrospinal Fluid 09/24/19 10:30 AM EDT 09/24/2023 11:49 AM EDT Narrative Resulting Agency Comment Spec In Lab Rhoda Jimenez MD MICROBIOLOGY - GENER AL ORDERABLES Performing Organization Address [facility] de Phone Number [facility] [place] [address] * AFB culture (09/24/2023 10:30 AM EDT) Acid Fast Bacilli Culture No Acid Fast Bacilli isolated Specimen received with sub-optimal CSF volume of <5 mL. The sensitivity of the AFB culture is therefore compromised. [facility] Cerebrospinal Fluid 09/24/19 10:30 AM EDT 09/24/2023 11:49 AM EDT Narrative Resulting Agency Comment Spec In Lab Rhoda Jimenez MD MICROBIOLOGY - GENER AL ORDERABLES Performing Organization Address [facility] Co de Phone Number [facility] [place] [address] * Calcium Ionized Whole Blood, CHANO (09/24/2023 3:17 AM EDT) pH, Venous 7.39 7.32 - 7.42 [facility] ICa Whole Blood 1.20 1.15 - 1.33 mmol/L [facility] Comment: Note: ??Total bilirubin higher than 20 mg/dL may lead to falsely low ionized calcium. Blood 09/24/2023 3:17 AM EDT 09/24/2023 3:26 AM EDT Narrative Resulting Agency Comment Spec In Lab Henry Elder MANAGER SERVICE DESK CHEMISTRY ORDERABL ES Performing Organization Address [facility]/ZIP Co de Phone Number [facility] [place] [address] * Type and Screen Validity (09/24/2023 3:15 AM EDT) T&S only valid at [facility] Comment:This Type and Screen result is only valid at the [facility] Blood 09/24/2023 3:15 AM EDT 09/24/2023 3:41 AM EDT Narrative Resulting Agency Comment Spec In Lab Henry Elder APRN BLOOD BANK LAB ORD ERABLES Performing Organization Address City/[facility]/ZIP Co de Phone Number [facility] [place] [address] * ABORH Recheck Status (09/24/2023 3:15 AM EDT) ABORH Type Recheck Completed [facility] Blood 09/24/2023 3:15 AM EDT 09/24/2023 3:41 AM EDT Narrative Resulting Agency Comment Spec In Lab Henry Elder APRN BLOOD BANK LAB ORD ERABLES Performing Organization Address City/[facility]/ZIP Co de Phone Number [facility] [place] [address] * Type and screen ([facility]/CGP/DULCE MARIA) (09/24/2023 3:15 AM EDT) ABORH Type A POSITIVE [facility] Patient BB History Found [facility] Expires at [id number] on: 09/27/2023 [facility] Ab Screen Interp Negative [facility] Blood 09/24/2023 3:15 AM EDT 09/24/2023 3:[address] [facility] - 09/24/2023 3:15 AM EDT This Type and Screen result is only valid at the [facility] Resulting Agency Comment Spec In Lab Henry Elder APRN BLOOD BANK LAB ORD ERABLES Performing Organization Address City/[facility]/ZIP Co de Phone Number [facility] [place] [address] * POCT Glucose (09/24/2023 2:36 AM EDT) [facility] Glucose, POC 97 65 - 199 mg/dL [facility] Comment: Supplemental ranges: <140 mg/dL before meals <180 mg/dL all other times of the day Blood 09/24/2023 2:36 AM EDT 09/24/2023 2:36 AM EDT Rhoda Jimenez MD POINT OF CARE TEST O RDERABLES Performing Organization Address City/[facility]/ZIP Co de Phone Number [facility] [place] [address] * (ABNORMAL) Differential, Automated (09/24/2023 12:30 AM EDT) [facility] Neutrophil % 60.4 % [facility] Neutrophil Absolute 6.98(H) 1.70 - 6.10 x10(3)/mc L [facility] Lymph % 32.2 % [facility] Lymphocytes Abs 3.7(H) 0.9 - 3.2 x10(3)/mc L [facility] Monocyte % 5.6 % [facility] Monocyte Abs 0.6 0.3 - 0.9 x10(3)/mc L [facility] Eos % 1.1 % [facility] Eosinophils Abs 0.1 0.0 - 0.4 x10(3)/mc L [facility] Basophil % 0.4 % [facility] Baso Absolute 0.0 0.0 - 0.1 x10(3)/mc L [facility] Immature Gran % 0.30 % [facility] Comment: Immature granulocytes(IG's)percentage and absolute count will include metamyelocytes, myelocytes, and promyelocytes. Blood smears from CBCs yielding IG's will be scanned manually for concordance. If this scan disagrees with the automated IG or if promyelocytes are noted, a manual differential will be performed. Immature Gran Absolute 0.03 0.00 - 0.04 x10(3)/[facility] Blood 09/24/2023 12:3 0 AM EDT 09/24/2023 12:44 AM EDT Narrative Resulting Agency Comment Spec In Lab Richard Valles MD HEMATOLOGY ORDERABLE S [facility] [place] [address] * (ABNORMAL) Hemogram (09/24/2023 12:30 AM EDT) White Blood Cell 11.6(H) 4.0 - 9.5 x10(3)/[facility] Red Blood Cell 5.52 4.58 - 5.54 x10(6)/[facility] Hemoglobin 16.0 13.7 - 16.5 g/dL [facility] Hematocrit 47.0 40.5 - 48.5 % [facility] Mean Cell Volume 85.1 82.9 - 93.[address] [facility] Mean Cell Hemoglobin 29.0 27.5 - 32.[address] [facility] Mean Cell Hemoglobin Concentration 34.0 32.0 - 35.7 g/dL [facility] Platelet 213 145 - 357 x10(3)/[facility] RDW Standard Deviation 39.5 36.0 - 45.[address] [facility] RDW coefficient of variation 12.8 11.4 - 13.8 % [facility] Mean Platelet Volume 9.5 7.6 - 12.[address] [facility] NRBC% auto 0.0 % [facility] NRBC Absolute 0.000 0.000 - 0.000 x10(3)/mc L [facility] Blood 09/24/2023 12:3 0 AM EDT 09/24/2023 12:44 AM EDT Narrative Resulting Agency Comment Spec In Lab Richard Valles MD HEMATOLOGY ORDERABLE S [facility] [place] [address] * Basic Metabolic Panel (non-fasting) (09/24/2023 12:30 AM EDT) Glucose 89 65 - 199 mg/dL [facility] Comment:Diabetes: >=200 mg/d L plus symptoms Blood Urea Nitrogen 13 10 - 20 mg/dL [facility] Creatinine 0.89 0.80 - 1.50 mg/dL [facility] Sodium 139 135 - 145 mmol/L [facility] Potassium 3.8 3.5 - 5.0 mmol/L [facility] Comment: Please note: ??Patients with WBC >100,000 may have falsely elevated Potassium levels. ??For accurate Potassium quantification in these patients send serum separator tube (gold top) for subsequent determinations. ??Contact the Clinical Chemistry Laboratory if there are any questions. Chloride 104 98 - 107 mmol/L [facility] Carbon Dioxide 23 22 - 31 mmol/L [facility] Anion Gap 12 5 - 15 mmol/L [facility] Calcium 9.3 8.5 - 10.5 mg/dL [facility] Est Glomerular Filtration Rate 104 >=60 mL/min/1. 73 m?? [facility] Comment: This patient's estimated GFR [...] In Lab Annita Dhaliwal MD CHEMISTRY ORDERABLES Performing Organization Address City/[facility]/ZIP Co de Phone Number [facility] [place] [address] * (ABNORMAL) LIABILITY CLAIMS MANAGER Shunt Culture (09/23/2023 11:30 PM EDT) Central Nervous System Shunt Culture No growth at 10 days.(A) [facility] Reviewed Stain Note: This is a corrected report Cytocentrifuge Gram Stain performed Neutrophils seen No microorganisms seen. Previously reported as: Cytocentrifuge Gram Stain performed Neutrophils seen Rare Gram Positive Rods seen (A) [facility] Gram Stain Cytocentrifuge Gram Stain performed Neutrophils seen Rare Gram Positive Rods seen Results called to and read back by 09/24/23 01:01:08 Gina Harper (A) [facility] Organism Gram Positive Rods(A) [facility] Cerebrospinal Shunt Fluid 09/23/2023 11:30 PM EDT 09/24/2023 12:27 AM EDT Narrative Resulting Agency Comment Spec In Lab Richard Valles MD MICROBIOLOGY - GENER AL ORDERABLES Performing Organization Address City/[facility]/ZIP Co de Phone Number [facility] [place] [address] * CSF Cell Count (09/23/2023 11:30 PM EDT) Tube # counted 1 [facility] AUTO NUC CSF CT 4 0 - 5 /mcl [facility] Comment: If Nucleated CSF CT result [...] clinical condition. RBC CSF CT 161 /mcl [facility] Cerebrospinal Fluid 09/23/19 11:30 PM EDT 09/24/2023 12:13 AM EDT Narrative Resulting Agency Comment Spec In Lab Richard Valles MD BODY FLUIDS AND STOO LS ORDERABLES Performing Organization Address [facility]/ZIP Co de Phone Number [facility] [place] [address] * CSF DESC 1 (09/23/2023 11:30 PM EDT) Tube Num CSF #[address] [facility] Color, CSF Colorless Colorless [facility] Appearance, CSF Clear Clear [facility] Total Vol, CSF 2.[address] [facility] Cerebrospinal Fluid 09/23/19 11:30 PM EDT 09/24/2023 12:13 AM EDT Narrative Resulting Agency Comment Spec In Lab Richard Valles MD BODY FLUIDS AND STOO LS ORDERABLES Performing Organization Address City/[facility]/ZIP Co de Phone Number [facility] [place] [address] * Glucose Level CSF (09/23/2023 11:30 PM EDT) Glucose, CSF 65 mg/dL [facility] Comment:CSF at equilibrium e quals approximately 60-80% of plasma glucose. Cerebrospinal Fluid 09/23/19 11:30 PM EDT 09/24/2023 12:13 AM EDT Narrative Resulting Agency Comment Spec In Lab Annita Dhaliwal MD BODY FLUIDS AND STOO LS ORDERABLES Performing Organization Address [facility]/ZIP Co de Phone Number [facility] [place] [address] * (ABNORMAL) Protein Level CSF (09/23/2023 11:30 PM EDT) Pathologist [facility] Protein, CSF 70(H) 15 - 45 mg/dL [facility] Xanthochromia Neg [facility] Cerebrospinal Fluid 09/23/19 11:30 PM EDT 09/24/2023 12:13 AM EDT Narrative Resulting Agency Comment Spec In Lab Annita Dhaliwal MD BODY FLUIDS AND STOO LS ORDERABLES Performing Organization Address [facility] Co de Phone Number [facility] [place] [address] * L-Lactate2 Whole Blood (09/23/2023 11:00 PM EDT) Pathologist [facility] Lactate WB 1.4 0.5 - 2.2 mmol/L [facility] Blood 09/23/2023 11:0 0 PM EDT 09/23/2023 11:00 PM EDT Annita Dhaliwal MD CHEMISTRY ORDERABLES Performing Organization Address City/[facility] Co de Phone Number [facility] [place] [address] * CT Head wo Contrast (Generic) (09/23/2023 8:01 PM EDT) [facility] WORKSTATION ID [id number] DH RAD Anatomical Region Laterality Modality Head Computed Tomogra phy Impressions 09/23/2023 8:42 PM EDT Unchanged caliber of the ventricles. Thank you for letting us participate in the care of this patient. ??If you are a health care provider and have any questions regarding this report, please contact the number below. ??For patients who have questions please contact the health lawn care specialist that requested your imaging first. ? Electronically signed by: HAIM Song [facility], 1928–1983 ([phone]), at 09/23/2023 8:42 PM Narrative 09/23/2023 8:42 PM EDT EXAMINATION: CT [...] patients who have questions please contactthe health lawn care specialist that requested your imaging first. Annita Dhaliwal MD IMG CT ORDERABLES * XR Shunt Series (09/23/2023 6:29 PM EDT) WORKSTATION ID [id number] RAD Anatomical Region Laterality Modality N/A Digital Radiogra phy Impressions 09/23/2023 7:12 PM EDT Right ventriculopleural shunt without kink or discontinuity identified. Thank you for letting us participate in the care of this patient. ??If you are a health care provider and have any questions regarding this report, please contact the number below. ??For patients who have questions please contact the health lawn care specialist that requested your imaging first. ? Electronically signed by: Ovidio Osborne MD, [facility] ??([phone]), at 09/23/2023 7:12 PM Narrative 09/23/2023 7:12 [...] patients who have questions please contactthe health lawn care specialist that requested your imaging first. Primo M Story MANAGER SERVICE DESK IMG DX ORDERABLES * Prothrombin Time (09/23/2023 6:10 PM EDT) Prothrombin Time 11.7 9.4 - 12.[address] [facility] International Normalization Ratio 1.0 [facility] Comment: An INR <2.0 indicates [...] MD HEMATOLOGY ORDERABLE S Performing Organization Address City/[facility] Co de Phone Number [facility] [place] [address] * APTT (09/23/2023 6:10 PM EDT) Partial Thromboplastin Time 35 25 - [address] [facility] Comment: The PTT is NOT [...] MD HEMATOLOGY ORDERABLE S Performing Organization Address [facility] Co de Phone Number [facility] [place] [address] * Gold Tube HOLD (09/23/2023 6:10 PM EDT) Gold Hold Sample in lab. [facility] Blood Venous Draw / Unknown 09/23/2023 6:10 PM EDT 09/23/2023 6:25 PM EDT Primo Story APRN CHEMISTRY ORDERABLES Performing Organization Address [facility] Co de Phone Number [facility] [place] [address] * Blue Tube HOLD (09/23/2023 6:10 PM EDT) Blue Hold Sample in lab. [facility] Blood Venous Draw / Unknown 09/23/2023 6:10 PM EDT 09/23/2023 6:22 PM EDT Primo Story MANAGER SERVICE DESK HEMATOLOGY ORDERABLE S [facility] [place] [address] * (ABNORMAL) Differential, Automated (09/23/2023 6:10 PM EDT) Neutrophil % 66.3 % [facility] Neutrophil Absolute 7.15(H) 1.70 - 6.10 x10(3)/mc L [facility] Lymph % 28.3 % [facility] Lymphocytes Abs 3.1 0.9 - 3.2 x10(3)/mc L [facility] Monocyte % 3.5 % [facility] Monocyte Abs 0.4 0.3 - 0.9 x10(3)/mc L [facility] Eos % 1.0 % [facility] Eosinophils Abs 0.1 0.0 - 0.4 x10(3)/mc L [facility] Basophil % 0.7 % [facility] Baso Absolute 0.1 0.0 - 0.1 x10(3)/mc L [facility] Immature Gran % 0.20 % [facility] Comment: Immature granulocytes(IG's)percentage and absolute count will include metamyelocytes, myelocytes, and promyelocytes. Blood smears from CBCs yielding IG's will be scanned manually for concordance. If this scan disagrees with the automated IG or if promyelocytes are noted, a manual differential will be performed. Immature Gran Absolute 0.02 0.00 - 0.04 x10(3)/mc L [facility] Blood 09/23/2023 6:10 PM EDT 09/23/2023 6:22 PM EDT Narrative Resulting Agency Comment Spec In Lab Primo Story MANAGER SERVICE DESK HEMATOLOGY ORDERABLE S [facility] [place] [address] * (ABNORMAL) Hemogram (09/23/2023 6:10 PM EDT) White Blood Cell 10.8(H) 4.0 - 9.5 x10(3)/mc L [facility] Red Blood Cell 5.90(H) 4.58 - 5.54 x10(6)/mc L [facility] Hemoglobin 17.0(H) 13.7 - 16.5 g/dL [facility] Hematocrit 49.4(H) 40.5 - 48.5 % [facility] Mean Cell Volume 83.7 82.9 - 93.[address] [facility] Mean Cell Hemoglobin 28.8 27.5 - 32.[address] [facility] Mean Cell Hemoglobin Concentration 34.4 32.0 - 35.7 g/dL [facility] Platelet 227 145 - 357 x10(3)/mc L [facility] RDW Standard Deviation 39.8 36.0 - 45.[address] [facility] RDW coefficient of variation 13.0 11.4 - 13.8 % [facility] Mean Platelet Volume 9.1 7.6 - 12.[address] [facility] NRBC% auto 0.0 % [facility] NRBC Absolute 0.000 0.000 - 0.000 x10(3)/mc L [facility] Blood 09/23/2023 6:10 PM EDT 09/23/2023 6:22 PM EDT Narrative Resulting Agency Comment Spec In Lab Primo Story APRN HEMATOLOGY ORDERABLE S [facility] [place] [address] * CRP, acute inflammation (09/23/2023 6:10 PM EDT) [facility] C-Reactive Protein 3.6 <=4.9 mg/L [facility] Blood 09/23/2023 6:10 PM EDT 09/23/2023 6:22 PM EDT Narrative Resulting Agency Comment Spec In Lab Primo Story APRN CHEMISTRY ORDERABLES Performing Organization Address [facility] [facility] Co de Phone Number [facility] [place] [address] * (ABNORMAL) Sedimentation rate (09/23/2023 6:10 PM EDT) [facility] Sedimentation Rate Automated 47(H) 2 - 37 mm/hr [facility] Comment: Effective February 02, 2019 new capillary photometric technology has resulted in a change in reference ranges. It is recommended that each ESR result be reviewed with its own age appropriate reference range. Blood 09/23/2023 6:10 PM EDT 09/23/2023 6:22 PM EDT Narrative Resulting Agency Comment Spec In Lab Primo Story APRN HEMATOLOGY ORDERABLE S Performing Organization Address [facility] Co de Phone Number [facility] [place] [address] * Basic Metabolic Panel (non-fasting) (09/23/2023 6:10 PM EDT) [facility] Glucose 167 65 - 199 mg/dL [facility] Comment:Diabetes: >=200 mg/d L plus symptoms Blood Urea Nitrogen 14 10 - 20 mg/dL [facility] Creatinine 1.05 0.80 - 1.50 mg/dL [facility] Sodium 137 135 - 145 mmol/L [facility] Potassium 3.8 3.5 - 5.0 mmol/L [facility] Comment: Please note: ??Patients with WBC >100,000 may have falsely elevated Potassium levels. ??For accurate Potassium quantification in these patients send serum separator tube (gold top) for subsequent determinations. ??Contact the Clinical Chemistry Laboratory if there are any questions. Chloride 100 98 - 107 mmol/L [facility] Carbon Dioxide 22 22 - 31 mmol/L [facility] Anion Gap 15 5 - 15 mmol/L [facility] Calcium 9.9 8.5 - 10.5 mg/dL [facility] Est Glomerular Filtration Rate 86 >=60 mL/min/1. 73 m?? [facility] Comment: This patient's estimated GFR [...] Story APRN CHEMISTRY ORDERABLES Performing Organization Address [facility]/ZIP Co de Phone Number [facility] [place] [address] * Blood culture (09/23/2023 6:10 PM EDT) Blood Culture No growth at [address] [facility] Blood 09/23/2023 6:10 PM EDT 09/23/2023 7:02 PM EDT Comment:L ac Narrative Resulting Agency Comment Spec In Lab Primo Story APRN MICROBIOLOGY - BLOOD ORDERABLES Performing Organization Address [facility]/ZIP Co de Phone Number [facility] [place] [address] * Blood culture (09/23/2023 12:05 AM EDT) Blood Culture No growth at [address] [facility] Blood STRUCTURE OF LEFT FOREARM / Unknown 09/23/2023 12:05 AM EDT 09/24/2023 1:39 AM EDT Narrative Resulting Agency Comment Spec In Lab Primo Story MANAGER SERVICE DESK MICROBIOLOGY - BLOOD ORDERABLES [facility] [place] [address] documented in this encounter Visit Diagnoses Not on filedocumented in this encounter Admitting Diagnoses Diagnosis Shunt [...] Given 10/09/2023 7:55 PM EDT 975 mg BUPivacaine-EPINEPHrine (Marcaine-Epinephrine) 0.25 %-1:200,000 injection PRN, Starting on Thu10/09/23 at 1341, Until Thu10/09/23 at 1706, Intra-Operative (Intra-Procedure), Routine Given 10/09/2023 1:41 PM EDT 8 mLs 19- Surgical Site docusate sodium (Colace) capsule 100 mg 100 mg, Oral, 2 TIMES DAILY, First dose on Sandra 09/24/23 at 0230, Until Discontinued, Routine Given 10/09/2023 8:05 AM EDT 100 mg Given 10/07/2023 9:10 PM EDT 100 mg Given 10/07/2023 8:32 AM EDT 100 mg gelatin adsorbable 12-7 mm sponge PRN, Starting on Thu10/09/23 at 1407, Until Thu10/09/23 at 1706, Intra-Operative (Intra-Procedure) Given 10/09/2023 2:07 PM EDT 1 each 19- Surgical Site HYDROmorphone (Dilaudid) (0.5 mg/0.5 mL) injection syringe [...] Given 09/29/2023 8:16 PM EDT 0.2 mg hydrOXYzine (Atarax) tablet 25 mg 25 mg, Oral, NIGHTLY, First dose on Sandra 09/24/23 at 2100, Until Discontinued, Routine Given 10/09/2023 8:46 PM EDT 25 mg Given 10/08/2023 8:06 PM EDT 25 mg Given 10/07/2023 9:10 PM EDT 25 mg levothyroxine (Synthroid) tablet 25 mcg 25 mcg, Oral, DAILY, First dose on Sandra 09/24/23 at 0600, Until Discontinued, Routine Given 10/10/2023 6:23 AM EDT 25 mcg Given 10/09/2023 8:05 AM EDT 25 mcg Given 10/08/2023 4:21 AM EDT 25 mcg lidocaine (Xylocaine) 1% (10 mg/mL) injection 30 mg 30 mg (3 mL), Subcutaneous, ONCE PRN, 1 dose, Starting on Thu10/02/23 at 0836, Until 10/10/23 at 1938, drain suture placement, Routine melatonin tablet 3 mg 3 mg, Oral, NIGHTLY PRN, Starting on Thu10/06/23 at 1947, Until 10/10/23 at 1938, Sleep, Routine Given 10/09/2023 8:50 PM EDT 3 mg Given 10/06/2023 8:48 PM EDT 3 mg metoprolol succinate XL (Toprol-XL) tablet 25 mg 25 mg, Oral, DAILY, First dose on Thu09/24/23 at 0900, Until Discontinued, DO NOT CRUSH OR OPEN, Routine Given 10/10/2023 9:24 AM EDT 25 mg Given 10/09/2023 8:06 AM EDT 25 mg Given 10/08/2023 8:48 AM EDT 25 mg ondansetron (pf) (Zofran) (2 mg/mL) injection 4 mg 4 mg, Intravenous, EVERY 8 HOURS PRN, Starting on Thu09/28/23 at 1636, Until 10/10/23 at 1938, Nausea [...] dose on Thu09/24/23 at 0900, Until Discontinued Given 10/10/2023 9:24 [...] crush, chew, or suck on tablet., Routine sertraline (Zoloft) tablet 200 mg 200 mg, [...] 8:06 AM EDT 5 mLs sodium chloride tablet 1 g 1 g, Oral, 3 TIMES DAILY, First dose on [place] 10/04/23 at 2100, Until Discontinued, Routine Given 10/10/2023 2:45 PM EDT 1 g Given 10/10/2023 9:24 AM EDT 1 g Given 10/09/2023 8:47 PM EDT 1 g topiramate (Topamax) tablet 25 mg 25 mg, Oral, DAILY, First dose on Thu09/24/23 at 0900, Until Discontinued, DO NOT SPLIT, CRUSH OR OPEN, Routine Given 10/10/2023 9:24 AM EDT 25 mg Given 10/09/2023 8:05 AM EDT 25 mg Given 10/08/2023 8:47 AM EDT 25 mg documented in this encounter Active and Recently [...] 0805 (Given - Provider: Dianelys Call RN)1222 (MAR Hold - Provider: Admin Adt - Reason: Transfer to a Procedural area)1706 (APR Unhold - Provider: Admin Adt)2041 (Not Given - Provider: Micthell Vizcarra RN - Reason: Patient/family refused) 0900 (Not Given - Provider: Emma Horta RN - Reason: Patient/family refused) hydrOXYzine (Atarax) tablet 25 mg 25 mg, Oral, NIGHTLY, First dose on Thu09/24/23 at 2100, Until Discontinued, Routine 2005 (Given - Provider: Mitchell Vizcarra, EDWARD) 1222 (APR Hold - Provider: Admin Adt - Reason: Transfer to a Procedural area)170 ([facility] Unhold - Provider: Admin Adt)2045 (Given - Provider: Mitchell Vizcarra RN) levothyroxine (Synthroid) tablet 25 mcg 25 mcg, Oral, DAILY, First dose on Thu09/24/23 at 0600, Until Discontinued, Routine 0421 (Given - Provider: Nelly German RN - Comment: given early, pt has proc this morning)0600 (Canceled Entry - Provider: Nelly German RN - Reason: See comment) 0521 (Hold - Provider: Mitchell Vizcarra RN - Reason: NPO - Comment: Pending surgical procedure)08 (Given - Provider: Dianelys Call RN)122 ([facility] Hold - Provider: Admin Adt - Reason: Transfer to a Procedural area)170 ([facility] Unhold - Provider: Admin Adt) 06 (Given - Provider: Mitchell Vizcarra RN) melatonin tablet 6 mg (CANCELED) 6 mg, Oral, NIGHTLY, First dose on Thu09/25/23 at 0030, Until Discontinued, Routine 2005 (Given - Provider: Mitchell Vizcarra RN) 122 ([facility] Hold - Provider: Admin Adt - Reason: Transfer to a Procedural area)170 ([facility] Unhold - Provider: Admin Adt) metoprolol succinate XL (Toprol-XL) tablet 25 mg 25 mg, Oral, DAILY, First dose on Thu09/24/23 at 0900, Until Discontinued, DO NOT CRUSH OR OPEN, Routine 0848 (Given - Provider: Dianelys Call RN) 0806 (Given - Provider: Dianelys Call RN)1222 ([facility] Hold - Provider: Admin Adt - Reason: Transfer to a Procedural area)170 ([facility] Unhold - Provider: Admin Adt) 09 (Given - Provider: Emma Horta RN) pantoprazole EC (Protonix) tablet 40 mg 40 mg, Oral, DAILY, First dose on Thu09/24/23 at 0900, Until Discontinued 0847 (Given - Provider: Dianelys Call RN) 08 (Given - Provider: Dianelys Call RN)1222 (APR Hold - Provider: Admin Adt - Reason: Transfer to a Procedural area)170 (APR Unhold - Provider: Admin Adt) 0924 (Given - Provider: Emma Horta RN) sertraline (Zoloft) tablet 200 mg 200 mg, Oral, DAILY, First dose on [place] 09/24/23 at 0900, Until Discontinued, Routine 0847 (Given - Provider: Dianelys Call RN) 0805 (Given - Provider: Dianelys Call RN)1222 (APR Hold - Provider: Admin Adt - Reason: Transfer to a Procedural area)170 (APR Unhold - Provider: Admin Adt) 0924 (Given - Provider: Emma Horta RN) sodium chloride 0.9 % (flush) (BD PosiFlush Normal Saline 0.9) flush 5 mL 5 mL, Intravenous, 2 TIMES DAILY, First dose on Sandra 09/24/23 at 0030, Until Discontinued, Recovery (Recovery-Hospital Unit), Routine 0849 (Given - Provider: Dianelys Call RN)2005 (Given - Provider: Mitchell Vizcarra RN) 0806 (Given - Provider: Dianelys Call RN)204 (Given - Provider: Mitchell Vizcarra RN) 0925 (Given - Provider: Emma Horta RN) sodium chloride tablet 1 g 1 g, Oral, 3 TIMES DAILY, First dose on 10/04/23 at 2100, Until Discontinued, Routine 0847 (Given - Provider: Dianelys Call RN)1602 (Given - Provider: Dianelys Call RN)2005 (Given - Provider: Mitchell Vizcarra RN) 0805 (Given - Provider: Dianelys Call RN)1222 (APR Hold - Provider: Admin Adt - Reason: Transfer to a Procedural area)1500 (Automatically Held - Provider: Admin Adt)170 (APR Unhold - Provider: Admin Adt)1719 (Given - Provider: Dianelys Call RN)2047 (Given - Provider: Mitchell Vizcarra RN) 0924 (Given - Provider: Emma Horta RN)1445 (Given - Provider: Tatiana Bernardo RN) topiramate (Topamax) tablet 25 mg 25 mg, Oral, DAILY, First dose on Thu09/24/23 at 0900, Until Discontinued, DO NOT SPLIT, CRUSH OR OPEN, Routine 0847 (Given - Provider: Dianelys Call, EDWARD) 0805 (Given - Provider: Dianelys Call RN)1222 (APR Hold - Provider: Admin Adt - Reason: Transfer to a Procedural area)1706 (MAR Unhold - Provider: Admin Adt) 0924 (Given [...] , Routine, 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 0518 (New Bag - Provider: Nelly German [...] Nelly German RN)1730 (Stopped - Provider: Dianelys Call RN) sodium chloride 0.9% infusion (CANCELED)(Linked Group 3) 100 mL/hr, Intravenous, CONTINUOUS, Starting on 10/09/23 at 0000, Until 10/09/23 at 1718 0022 (New Bag - Provider: Mitchell Vizcarra, RN)1222 ([facility] Hold - Provider: Admin Adt - Reason: Transfer to a Procedural area)1705 ([facility] Unhold - Provider: Admin Adt)1717 (Stopped - Provider: Dianelys Call RN) PRN Medication Order 10/08/2023 10/09/2023 10/10/2023 acetaminophen [...] PRN pain medications are ordered., Routine 1222 ([facility] Hold - Provider: Admin Adt - Reason: Transfer to a Procedural area)1705 ([facility] Unhold - Provider: Admin Adt)1954 (See Alternative - Provider: Mitchell Vizcarra, EDWARD) acetaminophen (Tylenol) suppository 650 mg(Linked Group 4) 650 mg, Rectal, EVERY 6 HOURS PRN, Starting on 10/03/23 at 1445, Until 10/10/23 at 1938, Pain, - Maximum dose of acetaminophen is 4,000 mg from all sources in 24 hours. - Unless otherwise specified, when ordered PRN for pain, acetaminophen should be given first if other PRN pain medications are ordered., Routine 1222 ([facility] Hold - Provider: Admin Adt - Reason: Transfer to a Procedural area)1705 ([facility] Unhold - Provider: Admin Adt)1954 (See Alternative - Provider: Mitchell Vizcarra, RN) acetaminophen (Tylenol) tablet 975 mg(Linked Group 4) 975 mg, Oral, EVERY 6 HOURS PRN, Starting on 10/03/23 at 1445, Until 10/10/23 at 1938, Pain, - Maximum dose of acetaminophen is 4,000 mg from all sources in 24 hours. - Unless otherwise specified, when ordered PRN for pain, acetaminophen should be given first if other PRN pain medications are ordered., Routine 1222 ([facility] Hold - Provider: Admin Adt - Reason: Transfer to a Procedural area)1706 ([facility] Unhold - Provider: Admin Adt)195 (Given - Provider: Mitchell Vizcarra RN - [...] be given concomitantly for constipation., Routine 1222 ([facility] Hold - Provider: Admin Adt - Reason: Transfer to a Procedural area)1706 ([facility] Unhold - Provider: Admin Adt) BUPivacaine-EPINEPHrine (Marcaine-Epinephrine) 0.25 %-1:200,000 injection (CANCELED) PRN, Starting on 10/09/23 at 1341, Until Thu10/09/23 at 1706, Intra-Operative (Intra-Procedure), Routine 1341 (Given - Provider: Laila Ricci MD) calcium carbonate (TUMS) chewable tablet 500 mg 500 mg, Oral, EVERY 6 HOURS PRN, Starting on Sandra 09/24/23 at 0010, Until 10/10/23 at 1938, Abdominal cramping, Routine 1222 ([facility] Hold - Provider: Admin Adt - Reason: Transfer to a Procedural area)1706 ([facility] Unhold - Provider: Admin Adt) [...] Starting on Sandra 09/24/23 at 0010, Until 8/17/24 at 1938, High Blood Pressure, For systolic blood pressure (SBP) greater than 160 mmHg. May repeat once in 15 minutes if blood pressure remains greater than 160 mmHg. Use if labetaloL ineffective after 2 doses, Routine 1222 ([facility] Hold - Provider: Admin Adt - Reason: Transfer to a Procedural area)170 ([facility] Unhold - Provider: Admin Adt) [...] within 24 hours, contact provider., Routine 1222 ([facility] Hold - Provider: Admin Adt - Reason: Transfer to a Procedural area)170 ([facility] Unhold - Provider: Admin Adt) labetaloL (Normodyne) (5 mg/mL) injection solution 20 mg 20 mg, Intravenous, EVERY 2 HOURS PRN, Starting on Sandra 09/24/23 at 0010, Until 10/10/23 at 1938, High Blood Pressure, Use for systolic blood pressure (SBP) greater than 160 mmHg. May repeat once in 15 minutes if blood pressure remains greater than 160 mmHg., Routine 1222 ([facility] Hold - Provider: Admin Adt - Reason: Transfer to a Procedural area)170 ([facility] Unhold - Provider: Admin Adt) lidocaine (Xylocaine) 1% (10 mg/mL) injection 3 mg 3 mg (0.3 mL), Subcutaneous, ONCE PRN, 1 dose, Starting on Sandra 09/24/23 at 0010, Until 10/10/23 at 1938, for discomfort with PIV insertion, Recovery (Recovery-Hospital Unit), Routine lidocaine (Xylocaine) 1% (10 mg/mL) injection 30 mg 30 mg (3 mL), Subcutaneous, ONCE PRN, 1 dose, Starting on 10/02/23 at 0836, Until 10/10/23 at 1938, drain suture placement, Routine 1222 ([facility] Hold - Provider: Admin Adt - Reason: Transfer to a Procedural area)170 ([facility] Unhold - Provider: Admin Adt) melatonin tablet 3 mg 3 mg, Oral, NIGHTLY PRN, Starting on Tu10/06/23 at 1947, Until 10/10/23 at 1938, Sleep, Routine 1222 ([facility] Hold - Provider: Admin Adt - Reason: Transfer to a Procedural area)170 ([facility] Unhold - Provider: Admin Adt)2049 (Given - Provider: Mitchell Vizcarra, EDWARD) ondansetron (pf) (Zofran) (2 mg/mL) injection 4 mg 4 mg, Intravenous, EVERY 8 HOURS PRN, Starting on 09/28/23 at 1636, Until 10/10/23 at 1938, Nausea 1222 ([facility] Hold - Provider: Admin Adt - Reason: Transfer to a Procedural area)1705 ([facility] Unhold - Provider: Admin Adt) oxyCODONE (Roxicodone) tablet 5 mg 5 mg, Oral, EVERY 4 HOURS PRN, Starting on Sandra 09/24/23 at 0315, Until 10/10/23 at 1938, Pain, Routine 1222 ([facility] Hold - Provider: Admin Adt - Reason: Transfer to a Procedural area)1705 ([facility] Unhold - Provider: Admin Adt)1746 (Given - Provider: Dianelys Call RN)2046 (Given - Provider: Mitchell Vizcarra, EDWARD - Comment: returned from rad scans w/breakthrough incisional pain) polyethylene glycoL (Miralax) packet 17 g 17 g, Oral, DAILY PRN, Starting on Sandra 09/24/23 at 0010, Until 10/10/23 at 1938, Constipation, Routine 1222 ([facility] Hold - Provider: Admin Adt - Reason: Transfer to a Procedural area)1705 ([facility] Unhold - Provider: Admin Adt) [...] (Given - Provider: Nelly German RN) 1222 ([facility] Hold - Provider: Admin Adt - Reason: Transfer to a Procedural area)1706 ([facility] Unhold - Provider: Admin Adt) [...] Alternative - Provider: Nelly German RN) 1222 ([facility] Hold - Provider: Admin Adt - Reason: Transfer to a Procedural area)1706 ([facility] Unhold - Provider: Admin Adt) senna-docusate (Pericolace) 8.6-50 mg per tablet 2 tablet 2 tablet, Oral, 2 TIMES DAILY PRN, Starting on Sandra 09/24/23 at 0010, Until 10/10/23 at 1938, Constipation, Routine 1222 ([facility] Hold - Provider: Admin Adt - Reason: Transfer to a Procedural area)1706 ([facility] Unhold - Provider: Admin Adt) [...] , Routine, 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
--- OUTSIDE RECORDS SUMMARY | 2024-02-29 15:42 | XMS_ITS | Encounter Summary ---
Author Organization [facility] [place] [address] Care Team Providers Care Hydrogen Power Plant Engineer Name Role Phone Peter Lebron Primary Care Provider [phone] Encounter Details Date Type Department Care Team (Latest Contact Info) Description 09/23/2023 Travel Social History Tobacco Use Types Packs/Day [...] place to sleep or slept in a fpc (including now)? No 07/03/2023 Housing Stability Vital [...] were you homeless or living in a fpc (including now)? No 09/24/2023 DH IPV Inpatient [...] on filedocumented in this encounter Care Teams Hydrogen Power Plant Engineer Relationship Specialty Start Date End Date Peter Lebron PA [address] [place] [address] PCP - General Internal Medicine 08/21/22 documented as of this encounter
--- OUTSIDE RECORDS SUMMARY | 2024-02-29 15:42 | XMS_ITS | Encounter Summary ---
Author Organization [facility] Address [facility] [place] [address] Care Team Providers Care Party Plan Sales Consultant Name Role Phone Peter Lebron Primary Care Provider [phone] Encounter Details Date Type Department Care Team (Latest Contact Info) Description 08/13/2023 11:40 AM EDT [place] [address] Cl Atkins PA [facility] [place] [address] Presence of ventriculopleural shunt Social History Tobacco Use Types Packs/Day Years Used Date Smoking Tobacco: Never Smokeless Tobacco: Never Alcohol Use Standard Drinks/Week Comments No 0 (1 standard drink = 0.6 oz pur e alcohol) [facility] Utilities Answer Date Recorded In the past 12 months has What They Like electric, gas, oil, or water [employer] threatened to shut off services in your home? No 07/03/2023 Hunger Vital Sign Answer Date Recorded Within the past 12 months, y ou worried that your food would run out before you got the money to buy more. Never true 07/03/19 24 Within the past 12 months, t he food you bought just didn't last and you didn't have money to get more. Never true 07/03/2023 PRAPARE - Transportation Answer Date Re corded In the past 12 months, has l ack of transportation kept you from medical appointments or from getting medications? No 06/23 In the past 12 months, has l ack of transportation kept you from meetings, work, or from getting things needed for daily living? No 07/03/2023 Housing Stability Vital Sign Answer [...] in a alf (including now)? No 07/03/2023 DH IPV Inpatient Questions Answer Date Recorded Does Anyone Try to Keep You From Having Contact with Others or Doing Things Outside Your Home? no 07/02/2023 Feels Threatened by Someone no 10/2023 Feels Unsafe at Home or Work/School no 07/02/2023 Physical Signs of Abuse Present no 07/02/2023 Sex and Gender Information Value Date Recorded Sex Assigned at Male 10/11/2020 1:38 PM EDT Gender Identity Male 01/18/2020 8:12 PM EST Sexual Orientation Straight 10/11/2020 1: 38 PM EDT documented as of this encounter Last Filed Vital Signs Vital Sign Reading Time Taken Comments Blood Pressure 112/80 08/13/2023 11:27 AM EDT Pulse 67 08/13/2023 11:27 AM EDT Temperature 36.2 ??C (97.1 ??F) 08/13/2023 11:27 AM E DT Respiratory Rate 16 08/13/2023 11:27 AM EDT Oxygen Saturation 97% 08/13/2023 11:27 AM EDT Inhaled Oxygen Concentration - - Weight 86.9 kg (191 lb 9.6 oz) 08/13/2023 11:27 AM EDT Height 167.6 cm (5' 6) 08/13/2023 11:27 AM EDT Body Mass Index 30.93 08/13/2023 11:27 AM EDT documented in this encounter Progress Notes * Cl Atkins PA - 08/13/2023 11:40 AM EDT Name: Chapin Costa : 1970 PCP: MARVA Gordon REF: Wendie Lowe Date of Service: 08/13/2023 CHIEF COMPLAINT: Postoperative follow up HISTORY: Chapin Costa presents in follow up for his WASH PLANT OPERATOR shunt. I had seen him last in September of last year. We made a shunt adjustment (from 80 to 90 mm H2O) at that time which apparently did very well in helping with the headache he was experiencing. Since I had seen him though he presented to [facility] on06/08/2023 with complaints of abdominal pain and it was discovered that he had a fracture of the distal WASH PLANT OPERATOR shunt catheter in the abdomen. He underwent WASH PLANT OPERATOR shunt revision 06/09/[address] Jimenez. He re presented to the hospital 06/16/2023 with leaking from his abdominal incision. He underwent externalization of the WASH PLANT OPERATOR shunt at the clavicle the same day. It was found that the had enterococcus faecalisabdominal infection. He was treated with antibiotics and when deemed appropriate by ID he underwentshunt revision surgery with change of the distal catheter to the pleural space with Dr. Jimenez on 06/29/2023. He was discharged the next day but returned two days later with abdominal pain and poor PO intake and was admitted to general surgery for SBO and underwent bowel resection with Dr. Murray . He was discharged five days later. Today he presents for routine follow up. He has no significant concerns regarding his shunt. He notes a little redness surrounding the chest incision for distal tubing in the pleural space. PHYSICAL EXAM: BP 112/80 (BP Location (NBP): Right arm, Patient Position: Sitting, BP Cuff Sizes: Adult (25-34 cm)) Comment (BP Cuff Sizes): long cuff Pulse 67 Temp 36.2 ??C (97.1 ??F) (Temporal) Resp 16 Ht167.6 cm (5' 6) Wt 86.9 kg (191 lb 9.6 oz) SpO2 97% BMI 30.93 kg/m?? . 52 y.o. male in no cardiorespiratory distress Awake and alert Conversing appropriately Well healed cranial, right clavicle, and right chest incisions Rash on the chest overlies the chest incision No swelling or tenderness or drainage IMAGING & OTHER RESULTS: No new pertinent imaging ASSESSMENT & PLAN: Doing well s/p WASH PLANT OPERATOR shunt revision for malfunction followed by externalization for infection and ultimately revision to a V-pleural shunt. Patient knows he may follow up with neurosurgery any time if questions or concerns arise and will continue to need shunt checks following any MRI scans. Cl Atkins PA-C, MS Physician Sample Builder Section [place] [address] documented in this encounter Plan of Treatment Not on file documented as of this encounter Visit Diagnoses Diagnosis Presence of ventriculopleural shunt Presence of cerebrospinal fluid drainage device documented in this encounter Care Teams Party Plan Sales Consultant Relationship Specialty Start Date End Date Peter Lebron PA [address] [place] [address] PCP - General Internal Medicine 08/21/22 documented as of this encounter
--- OUTSIDE RECORDS SUMMARY | 2024-02-29 15:42 | XMS_ITS | Encounter Summary ---
Author Organization [facility] [place] [address] Care Team Providers Care Refinery Operator Coking Name Role Phone Peter Lebron Primary Care Provider [phone] Encounter Details Date Type Department Care Team (Late st Contact Info) Description 07/15/2023 1:20 PM EDT [place] [id number] Encounter for removal of isabella Social History Tobacco Use Types Packs/Day Years Used Date Smoking Tobacco: Never Smokeless Tobacco: Never Alcohol Use Standard Drinks/Week Comments No 0 (1 standard drink = 0.6 oz pur e alcohol) [facility] Utilities Answer Date Recorded In the past 12 months has e [employer], gas, oil, or water company threatened to [...] in a snf (including now)? No 07/03/2023 DH IPV Inpatient [...] Sign Reading Time Taken Comments Blood Pressure 118/83 07/15/2023 1:27 PM EDT Pulse 85 07/15/2023 1:27 PM EDT Temperature 36.8 ??C (98.2 ??F) 07/15/2023 1:27 PM ED T Respiratory Rate 17 07/15/2023 1:27 PM EDT Oxygen Saturation 96% 07/15/2023 1:27 PM EDT Inhaled Oxygen Concentration - - Weight 87.5 kg (192 lb 14.4 oz) 07/15/2023 1:27 PM EDT Height 167.6 cm (5' 5.98) 07/15/2023 1:27 PM ED T Body Mass Index 31.15 07/15/2023 1:27 PM EDT documented in this encounter Progress Notes * Beryl Horn, RN - 07/15/2023 1:20 PM EDT Chapin Costa 1970 52 y.o. [id number] Procedures: REVISION OR REPLACEMENT CSF SHUNT Chapin Costa is is alert, oriented, and appropriate in NAD. His speech is clear. His ambulation is steady with narrow-based gait. He denies feeling lightheaded or dizzy. He denies numbness or tingling in upper and lower extremities. Denies diplopia. Hearing is intact. Facial features are symm etrical. Denies pain. Incision is well healed with skin edges well approximated. All sutures (head and neck) were removed. Neck incision dorinda and raised, mom will watch for now. Bottom 2cm of head incision red and raised, will continue to watch for SXS infection. Current Outpatient Medications: Current Outpatient Medications: calcium carbonate (TUMS) 200 mg calcium (500 mg) chewable tablet, Take 1 tablet by mouth every 6 hours as needed (Abdominal cramping)., Disp: , Rfl: senna-docusate (Pericolace) 8.6-50 mg Tablet, Take 2 tablets by mouth 2 times daily as needed for Constipation., Disp: 60 tablet, Rfl: 0 atorvastatin (Lipitor) 10 mg tablet, Take 10 mg by mouth daily., Disp: , Rfl: hydrOXYzine (Atarax) 25 mg tablet, Take 25 mg by mouth nightly., Disp: , Rfl: omeprazole (PriLOSEC) [address] capsule, Take 20 mg by mouth daily., Disp: , Rfl: Vitamin B-12 5,000 mcg Tablet, Sublingual, Take 5,000 mcg by mouth daily., Disp: , Rfl: ARIPiprazole (Abilify) 10 mg tablet, Take 10 mg by mouth daily., Disp: , Rfl: polyethylene glycoL (Miralax) 17 gram oral powder packet, Take 17 g by mouth daily as needed., Disp: 14 each, Rfl: 0 Aimovig Autoinjector 70 mg/mL Auto-Injector, Inject 70 mg as directed every 30 days. On the , Disp: , Rfl: acetaminophen (Tylenol) 500 mg Tablet, Take 500 mg by mouth every 6 hours as needed., Disp: , Rfl: rizatriptan (MAXALT) 10 mg Tablet, Take 1 tablet by mouth as needed for Migraine., Disp: 10 tablet,Rfl: 0 metoprolol succinate XL (Toprol-XL) 25 mg Tablet Sustained Release 24 hr, Take 25 mg by mouth daily., Disp: , Rfl: topiramate (TOPAMAX) 25 mg Tablet, Take 1 tablet by mouth 2 times daily. (Patient taking differently: Take 25 mg by mouth daily.), Disp: 60 tablet, Rfl: 5 levothyroxine (SYNTHROID) 25 mcg Tablet, Take 25 mcg by mouth daily., Disp: , Rfl: sertraline (ZOLOFT) 100 mg Tablet, Take 200 mg by mouth daily., Disp: , Rfl: 0 testosterone cypionate (DEPOTESTOSTERONE CYPIONATE) 200 mg/mL Oil, Inject 250 mg into the muscle every 14 days., Disp: , Rfl: 0 documented in this encounter Plan of Treatment Not on file documented as of this encounter Visit Diagnoses Diagnosis Encounter for removal of isabella Encounter for removal of sutures documented in this encounter Care Teams Refinery Operator Coking Relationship Specialty Start Date End Date Peter Lebron PA [address] [place] [address] PCP - General Internal Medicine 08/21/22 documented as of this encounter
--- OUTSIDE RECORDS SUMMARY | 2024-02-29 15:42 | XMS_ITS | Encounter Summary ---
Author Organization [facility] [place] [address] Care Team Providers Care Veterinary Medicine Doctor Name Role Phone Peter Lebron Primary Care Provider [phone] Encounter Details Date Type Department Care Team (Latest Contact Info) Description 08/13/2023 Travel Social History Tobacco Use Types Packs/Day Years Used Date Smoking Tobacco: Never Smokeless Tobacco: Never Alcohol Use Standard Drinks/Week Comments No 0 (1 standard drink = 0.6 oz pur e alcohol) [facility] Utilities Answer Date Recorded In [...] place to sleep or slept in a residential (including now)? No 07/03/2023 DH IPV Inpatient [...] on filedocumented in this encounter Care Teams Veterinary Medicine Doctor Relationship Specialty Start Date End Date Peter Lebron PA [address] [place] [address] PCP - General Internal Medicine 08/21/22 documented as of this encounter
--- OUTSIDE RECORDS SUMMARY | 2024-02-29 15:42 | XMS_ITS | Encounter Summary ---
Author Organization [facility] Address [facility] [place] [address] Care Team Providers Care Paraprofessional Aide Name Role Phone Peter Lebron Primary Care Provider Encounter Details Date Type Department Care Team (Late st Contact Info) Description 08/19/2023 Notes [place] [address] Annalise Rivera, SALES AND SERVICE AGENT [facility] [place] [address] Social History Tobacco Use Types Packs/Day Years Used Date Smoking Tobacco: Never Smokeless Tobacco: Never Alcohol Use Standard Drinks/Week Comments No 0 (1 standard drink = 0.6 oz pur e alcohol) [facility] Utilities Answer Date Recorded In the past 12 months has e [employer], gas, oil, or water [employer] threatened to shut off services in your [...] in a mcfp (including now)? No 07/03/2023 DH IPV Inpatient [...] PM EDT documented as of this encounter Progress Notes * Annalise Rivera, SALES AND SERVICE AGENT - 08/19/2023 6:55 PM EDT I called to speak with Ever to ask how he was doing, I was able to speak with his guardian Tracy (per Ever's preference). When I spoke with Tracy after his CT CAP was completed earlier this month, he was feeling similarto when I saw him on 07/23/23, with intermittent nausea and occasional emesis along with intermittent RUQ pain. At that time, I reviewed the CT with her and let her know that Dr Murray and I thought that he needed more time as there was no evidence of obstruction or abscess. I called today to followup. Tracy reports Ever is now the best he's been in years. She reports he is having no pain, no nausea or vomiting. He is eating much better and has an appetite. His energy is excellent. Both Tracy and Ever are pleased with his progress.They would like to have a FU appt in late Sep early Oct instead of early August as we had talked about. I told her this was reasonable and I am happy to see him asneeded over the summer. She told me she is pleased with this plan and thanked me for the phone call. documented in this encounter Plan of Treatment Not on file documented as of this encounter Visit Diagnoses Not on filedocumented in this encounter Care Teams Paraprofessional Aide Relationship Specialty Start Date End Date Peter Lebron PA [address] [place] [address] PCP - General Internal Medicine 08/21/22 documented as of this encounter
--- OUTSIDE RECORDS SUMMARY | 2024-02-29 15:42 | XMS_ITS | Encounter Summary ---
Author Organization [facility] [place] [address] Care Team Providers Care Tube Laser Operator Name Role Phone Peter Lebron Primary Care Provider [phone] Encounter Details Date Type Department Care Team (Latest Contact Info) Description 07/15/2023 12:00 PM EDT Clinical Support General Surgery at [facility] [place] [place] [address] Removal of staple Social History Tobacco Use Types Packs/Day Years Used Date Smoking Tobacco: Never Smokeless Tobacco: Never Alcohol Use Standard Drinks/Week Comments No 0 (1 standard drink = 0.6 oz pur e alcohol) [facility] Utilities Answer Date Recorded In the past 12 months has e [facility], gas, oil, or water [employer] threatened to shut off services in your [...] place to sleep or slept in a care home (including now)? No 07/03/2023 DH IPV Inpatient [...] as of this encounter Progress Notes * Missy Stephenson RN - 07/15/2023 12:00 PM EDT Staple Removal: Date: 07/15/2023 Time:12:04 PM The patient was identified as Chapin Costa. The patient is s/p : Reason for admission: Small bowel obstruction and post operative care following: Procedure(s): @BOWEL RESECTION, SMALL INTESTINE SINGLE ANASTOMOSIS (WRVU 20.82) Surgeon(s) and Role: * Frank Murray MD - Primary * Delgado Denis MD - Resident - Assisting History of Present Illness: Chapin Costa is a 52 y.o. 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 During this admission we were initially engaged for externalization of the abdominal component of the shunt, and thereafter reengaged as the patient developed a postoperative ileus with small bowel fecalization causing apparent obstructive symptoms. Additionally during that hospitalization IR was engaged and aspirated intra-abdominal abscesses that were positive for Enterococcus faecalis. After he received p.o. contrast for his CT scan on that admission as well as robust bowel regimen he resolves the stool burden and felt some resolution of this pain nausea. He thereafter underwent the ventriculopleural shunt creationand ultimately was discharged home. According to documentation by neurosurgery at the time of discharge he was tolerating regular diet, having normal bowel movements and his pain was managed. He was discharged on MiraLAX and Colace which she has been taking regularly. However over the following 3 days since he has been home he is had recurrence of central abdominal pain, as well as intermittent nausea, now with emesis. He states he has had a few bouts of emesis as early as the morning of presentation, however he has been having bowel movements which have mainly been of soft consistency and hehas been passing flatus. Denies fevers, chills, chest pain, shortness of breath, night sweats or other constitutional symptoms. CT scan was obtained in the emergency department that was concerning for possible obstruction for which general surgery was consulted. Hospital Course: 07/02/2023: He was made NPO for bowel rest and give maintenance fluids. 07/02: Patient was taken to the OR for extensive lysis of adhesions and small bowel resection with anastomosis. Findings included a firm mass palpated in small bowel and 20 cm of jejunum was resected to remove the object. Bowel opened on the back table and a piece of broccoli was identified. NGT wasplaced in the OR. 07/03: Patient was doing well post-operatively, remained NPO awaiting return of bowel function. 07/04: Difficulty with pain control on NOISE ABATEMENT ENGINEER, ordered Toradol. Passing gas. NGT removed and clear liquid diet started and tolerated. 07/05: Diet advanced to regular, tolerated diet. Had bowel movements overnight. 07/06: Patient doing well and ready to go home. Spoke with infectious disease about the need to continue antibiotics now that we have source control, and they agreed antibiotics are no longer indicated. He does not need outpatient infectious disease follow up. Prior to discharge on 07/08/23 or hospital day 6, patient's pain was well controlled with oral painmedications, perez catheter was removed, patient was voiding without difficulty, and wound(s) were intact and healing appropriately. Patient was having regular bowel movements, and tolerating a Regular diet. Vitals were within normal limits and patient was determined medically ready for discharge to home. Chapin's incision appears to be well approximate with reactive erythema at the staple sites. There is no sign of infection. his isabella were removed with ease. Mastisol was applied to the incision edges and allowed to dry. Steri-strips were applied. Plan of Care: Signs and symptoms of infection were reviewed with Chapin. he was instructed to keep them in place for 7- 10 days and how to remove them. Chapin was able toverbalize his understanding of the above instructions. documented in this encounter Plan of Treatment Not on file documented as of this encounter Visit Diagnoses Diagnosis Removal of staple Encounter for removal of sutures documented in this encounter Care Teams Tube Laser Operator Relationship Specialty Start Date End Date Peter Lebron PA [address] [place] [address] PCP - General Internal Medicine 08/21/22 documented as of this encounter
--- OUTSIDE RECORDS SUMMARY | 2024-02-29 15:42 | XMS_ITS | Encounter Summary ---
Author Organization [facility] Address [facility] [place] [address] Care Team Providers Care Drug Department Worker Name Role Phone Peter Lebron Primary Care Provider [phone] Encounter Details Date Type Department Care Team (Late st Contact Info) Description 07/27/2023 8:45 PM EDT Ancillary Procedure Radiology Library at [facility] [place] [address] Annalise Rivera APRN [facility] [address] Social History Tobacco Use Types Packs/Day Years Used Date Smoking Tobacco: Never Smokeless Tobacco: Never Alcohol Use Standard Drinks/Week Comments No 0 (1 standard drink = 0.6 oz pur e alcohol) [facility] Utilities Answer Date Recorded In the past 12 months has [employer], gas, oil, or water [employer] threatened to shut off services in your [...] in a mcc (including now)? No 07/03/2023 IPV Inpatient Questions Answer Date Recorded Does [...] Procedure Name Priority Date/Time Associated Diagnosis Comments FILM LIBRARY STORAGE ONLY CT CHEST ABDOMEN PELVIS Routine 07/27/2023 8:40 PM EDT documented in this encounter Results * Film Library- Storage Only CT Chest Abdomen Pelvis (07/27/2023 8:40 PM EDT) Narrative RAD - 07/27/2023 8:40 PM EDT This exam is auto-finalizing. It's purpose is for storage only. Annalise Rivera APRN IMG FILM LIBRARY O RDERABLES [place], [place] documented in this encounter Visit Diagnoses Not on filedocumented in this encounter Care Teams Drug Department Worker Relationship Specialty Start Date End Date Peter Lebron PA [address] [place] [address] PCP - General Internal Medicine 08/21/22 documented as of this encounter
--- OUTSIDE RECORDS SUMMARY | 2024-02-29 15:42 | XMS_ITS | Encounter Summary ---
Author Organization [facility] [place] [address] Care Team Providers Care Consular Officer Name Role Phone Peter Lebron Primary Care Provider [phone] Encounter Details Date Type Department Care Team (Late st Contact Info) Description 09/23/2023 [place] [phone] Beryl Horn RN Social History Tobacco Use Types Packs/Day Years Used Date Smoking Tobacco: Never Smokeless Tobacco: Never Alcohol Use Standard Drinks/Week Comments No 0 (1 standard drink = 0.6 oz pur e alcohol) [facility] Utilities Answer Date Recorded In the past 12 months has e [employer], gas, oil, or water [employer] threatened to shut off services in your [...] place to sleep or slept in a halfway (including now)? No 07/03/2023 Housing Stability Vital [...] time in the past 12 m [facility], were you homeless or living in a halfway (including now)? No 09/24/2023 DH IPV Inpatient Questions Answer Date Recorded Does Anyone Try to Keep You From Having Contact with Others or Doing Things Outside Your Home? no 09/24/2023 Feels Threatened by Someone no 080 02/2023 Feels Unsafe at Home or Work/School no 09/24/2023 Physical Signs of Abuse Present no 09/24/2023 Sex and Gender Information Value Date Recorded Sex Assigned at Male 10/11/2020 1:38 PM EDT Gender Identity Male 01/18/2020 8:12 PM EST Sexual Orientation Straight 10/11/2020 1: 38 PM EDT documented as of this encounter Miscellaneous Notes * Telephone Encounter - Beryl Horn RN - 09/23/2023 2:47 PM EDT Copied from [facility] #[id number]. Topic: Specialty Dept CRMs - Triage >> Sep 23, 2023 11:52 AM Tess Salazar wrote: Triage Message Specialist: Rhoda Jimenez Relationship (if other than patient-full name): Tracy, mother/guardian Symptom: shunt pain, headache, low grade fever Has patient experienced symptom before If patient has experienced symptom before, when was the last time this occurred Is patient currently having symptom yes When did symptom begin about 36 hours ago Additional Comments: Patient's mother reports patient has been experiencing shunt pain with headache and low grade fever for the past 36 hours. She also reports that he has no appetite and is having difficulty looking up. They are requesting call back as soon as possible >> Sep 23, 2023 2:29 PM Pema Martin wrote: Patient's mother, Tracy, called to check the status on a call back from a nurse. Tracy states she is an hour [place] a half [place] [facility] so if patient needs to go to the ED, she would like to know sooner than later so they do not end up returning home after midnight. This proposal lead writer assured Tracy someone would get back to her soon. ___ Spoke to Ever and mom Tracy who report Ever had been doing great since we saw him last but Thursday started feeling off. Since Thursday, He's had a headache of 8/10, its too painful to look up, the area around his shunt behind his ear is red and puffy, had had no appetite. He also was found to have a fever of 100 last night that resolved today with tylenol. The tylenol they report did not help the headache however. They are 90 mins away and the nearest ED, [facility], doesn't not have a neuro team that can adjust his shunt. Called back, spoke to Tracy and told her to bring Ever to ED. documented in this encounter Plan of Treatment Not on file documented as of this encounter Visit Diagnoses Not on filedocumented in this encounter Care Teams Consular Officer Relationship Specialty Start Date End Date Peter Lebron PA [address] [place] [address] PCP - General Internal Medicine 08/21/22 documented as of this encounter
--- OUTSIDE RECORDS SUMMARY | 2024-02-29 15:42 | XMS_ITS | Encounter Summary ---
Author Organization [facility] Address [facility] [place] [address] Care Team Providers Care Neuropathologist Name Role Phone Peter Lebron Primary Care Provider [phone] Encounter Details Date Type Department Care Team (Latest Contact Info) Description 07/15/2023 Travel Social History Tobacco Use Types Packs/Day Years Used Date Smoking Tobacco: Never Smokeless Tobacco: Never Alcohol Use Standard Drinks/Week Comments No 0 (1 standard drink = 0.6 oz pur e alcohol) [facility] Utilities Answer Date Recorded In the [...] in a longterm (including now)? No 07/03/2023 DH IPV Inpatient [...] on filedocumented in this encounter Care Teams Neuropathologist Relationship Specialty Start Date End Date Peter Lebron PA [address] [place] [address] PCP - General Internal Medicine 08/21/22 documented as of this encounter
--- OUTSIDE RECORDS SUMMARY | 2024-02-29 15:42 | XMS_ITS | Encounter Summary ---
Author Organization [facility] [place] [address] Care Team Providers Care Criminal Justice Department Chair Name Role Phone Peter Lebron Primary Care Provider Encounter Details Date Type Department Care Team (Late st Contact Info) Description 07/15/2023 2:30 PM EDT Office [place] [id number] Valdo Awan MD Intra-abdominal infection; Infection of PACKAGING MECHANIC (ventriculoperitoneal ) shunt, subsequent encounter Social History Tobacco Use Types Packs/Day Years Used Date Smoking Tobacco: Never Smokeless Tobacco: Never Alcohol Use Standard Drinks/Week Comments No 0 (1 standard drink = 0.6 oz pur e alcohol) [facility] Utilities Answer Date Recorded In the past 12 months has [employer], gas, oil, or water [employer] threatened to shut off services in your [...] in a halfway (including now)? No 07/03/2023 DH IPV Inpatient [...] Time Taken Comments Blood Pressure 118/83 07/15/2023 2:20 PM EDT Pulse 85 07/15/2023 2:20 PM EDT Temperature 36.7 ??C (98 ??F) 07/15/2023 2:20 PM EDT Respiratory Rate 16 07/15/2023 2:20 PM EDT Oxygen Saturation 96% 07/15/2023 2:20 PM EDT Inhaled Oxygen Concentration - - Weight 84.8 kg (186 lb 14.4 oz) 07/15/2023 2:20 PM EDT weighed Height 167.6 cm (5' 5.98) 07/15/2023 2:20 PM ED T Body Mass Index 30.18 07/15/2023 2:20 PM EDT documented in this encounter Progress Notes * Valdo Awan MD - 07/15/2023 2:30 PM EDT Images from the original note were not included. ID clinic follow up note Patient ID: 52 M recently treated for intra-abd infection related to PACKAGING MECH[employer]IC shunt catheter s/p removal and source control, seen in ID clinic for f/u. S: Pt is here with mom. He feels well, about 90-95% back to where he was. He is still not eating as much as he usually does, and tires easily. Low grade temp - 99.6 or so - and occasionally feels hot. No chills or night sweats, sleeps well throughout the night. There is a clear discharge from the adriana-umbilical incision, they are changing the dressing around the incision multiple times per day. Previously there was a time when the skin around the incision was red, but it is improved. Did not have issues tolerating amp or amox. They have not been on any abx since the recent hospitaldischarge. Current Outpatient Medications on File Prior to Visit Medication Sig Dispense Refill calcium carbonate (TUMS) 200 mg calcium (500 mg) chewable tablet Take 1 tablet by mouth every 6 hours as needed (Abdominal cramping). senna-docusate (Pericolace) 8.6-50 mg Tablet Take 2 tablets by mouth 2 times daily as needed for Constipation. 60 tablet 0 atorvastatin (Lipitor) 10 mg tablet Take 10 mg by mouth daily. hydrOXYzine (Atarax) 25 mg tablet Take 25 mg by mouth nightly. omeprazole (PriLOSEC) [address] capsule Take 20 mg by mouth daily. Vitamin B-12 5,000 mcg Tablet, Sublingual Take 5,000 mcg by mouth daily. ARIPiprazole (Abilify) 10 mg tablet Take 10 mg by mouth daily. polyethylene glycoL (Miralax) 17 gram oral powder packet Take 17 g by mouth daily as needed. 14 each 0 Aimovig Autoinjector 70 mg/mL Auto-Injector Inject 70 mg as directed every 30 days. On the of every month acetaminophen (Tylenol) 500 mg Tablet Take 500 mg by mouth every 6 hours as needed. rizatriptan (MAXALT) 10 mg Tablet Take 1 tablet by mouth as needed for Migraine. 10 tablet 0 metoprolol succinate XL (Toprol-XL) 25 mg Tablet Sustained Release 24 hr Take 25 mg by mouth daily. topiramate (TOPAMAX) 25 mg Tablet Take 1 tablet by mouth 2 times daily. (Patient taking differently: Take 25 mg by mouth daily.) 60 tablet 5 levothyroxine (SYNTHROID) 25 mcg Tablet Take 25 mcg by mouth daily. sertraline (ZOLOFT) 100 mg Tablet Take 200 mg by mouth daily. 0 testosterone cypionate (DEPOTESTOSTERONE CYPIONATE) 200 mg/mL Oil Inject 250 mg into the muscle every 14 days. 0 No current facility-administered medications on file prior to visit. O: Vitals: 07/15/23 1420 BP: 118/83 Pulse: 85 Resp: 16 Temp: 36.7 ??C (98 ??F) TempSrc: Temporal SpO2: 96% Weight: 84.8 kg (186 lb 14.4 oz) Height: 167.6 cm (5' 5.98) NAD Abd incision shows one area near the umbilicus that has yellow/orange drainage, skin surrounding without redness/swelling/warmth 07/08/23 WC 11, Hgb 11.8, Plt 279 06/18/23: rare E faecalis (pen, amp, and vanc-S) 06/15 CT a/p w IMPRESSION 1. Interval revision of the shunt catheter, with tip in the left midabdomen, retracted slightly from prior position. There is a new 2.7 cm intraperitoneal fluid collection adjacent to the catheter tip; cannot differentiate loculated sterile from infected fluid. There are moderate inflammatory changes surrounding this. 2. New moderate inflammation in the right upper quadrant surrounding a 13 mm segment of discontinuity of the catheter tubing just above a metallic connector. There is a 3.3 cm fluid collection in this area suspicious for abscess with surrounding cellulitis. 07/01 CT a/p w IMPRESSION 1. Increased dilation of a segment of mid small bowel in the left abdomen with proximal and distal transition points suspicious for a closed-loop obstruction. This could be related to anterior abdominal wall adhesions or possible internal hernia. 2. No intra-abdominal abscess or free air. 3. Intervertebral placement of a right pleural shunt catheter with small right pleural effusion and right basilar atelectasis. 07/02 intra-op finding (dx: SBO): Findings: Dense interloop adhesions resulting in >3 hours of lysis of adhesions. Firm mass palpated in small bowel and 20 cm of jejunum was resected to remove the object. Bowel opened on the back table and a piece of broccoli was identified. Entire small bowel run from LOT to TI. A/P: 52 M with congenital hydrocephalus with PACKAGING MECHANIC shunt s/p admission 06/15-06/29: he presented with headache, abd pain and found to have intra-abd infection associated with distal PACKAGING MECH[employer]IC shunt catheter; culture grew E faecalis. Catheter was externalized and a new R sided ventriculopleural distal catheter was placed 06/28. Pt was treated with amp-sulb -> transitioned to amox-clav for 3-4 weeks. He was readmitted 07/01-07/07 with abd pain, nausea, vomiting, and found to have SBO, s/p OR 07/02 for BITA, smallbowel resection with anastomosis. Pt received amp- sulbactam during this admission however abx was d/c'ed at discharge as he was deemed to have achieved source control. He presents to clinic today forID f/u. He has been off abx since 07/07 and is doing well, with no evidence of residual infection. There is some incomplete healing of the periumbilical incision with ongoing yellow drainage, do not suspect active infection of this wound. Will alert General Surgery team so they can evaluate and provide appropriate wound care instructions. Recommendations: - no indication for abx at this time - continue to f/u surgery for post-op care and to address ongoing drainage from periumbilical incisional wound - f/u ID PRN Valdo Awan MD Pt seen and discussed with ID attending, Dr Longoria. * Cl Longoria MD - 07/15/2023 2:30 PM EDT Ambulatory Clinic Teaching Attestation I have seen the patient in person and reviewed the fellow's history and I agree with the details aswritten. The assessment and plan were formulated in discussion with me and I agree with them as documented. I spent a total of 45 minutes on this visit, reviewing data, counseling and communicating with other providers. Cl Longoria MD ID Staff Physician documented in this encounter Plan of Treatment Not on file documented as of this encounter Visit Diagnoses Diagnosis Intra-abdominal infection Unspecified infectious and parasitic diseases Infection of PACKAGING MECHANIC (ventriculoperitoneal) shunt, subsequent encounter documented in this encounter Care Teams Criminal Justice Department Chair Relationship Specialty Start Date End Date Peter Lebron PA [address] [place] [address] PCP - General Internal Medicine 08/21/22 documented as of this encounter
--- OUTSIDE RECORDS SUMMARY | 2024-02-29 15:42 | XMS_ITS | Encounter Summary ---
Author Organization [facility] [place] [address] Care Team Providers Care Nsh Teacher Name Role Phone Peter Lebron Primary Care Provider [phone] Reason for Visit * Reason Comments Headache * Auth/Cert (Routine) Specialty Diagnoses / Procedures Referred By Contac t Referred To Contact Diagnoses Shunt malfunction Nonintractable headache, unspecified chronicity pattern, unspecified headache type Rhoda Jimenez MD [facility] [place] [address] [facility] Referral ID Status Reason Start Date Expiration Date Visits Re quested Visits Authorized [id number] 1 1 Encounter Details Date Type Department Care Team (Late st Contact Info) Description 09/24/2023 8:30 AM EDT - 09/24/2023 11:15 AM EDT Surgery [place] [address] Rhoda Jimenez MD [facility] [place] [address] @REMOVAL OF COMPLETE CSF SHUNT, W/O REPLACEMENT (WRVU 7.38) Social History Tobacco Use Types Packs/Day Years Used Date Smoking Tobacco: Never Smokeless Tobacco: Never Alcohol Use Standard Drinks/Week Comments No 0 (1 standard drink = 0.6 oz pur e alcohol) [facility] Utilities Answer Date Recorded In [...] place to sleep or slept in a chcf (including now)? No 07/03/2023 Housing Stability Vital Sign Answer Judah e Recorded In the last 12 months, was t here a time when you were not able to pay the mortgage or rent on time? No 09/24/2023 In the past 12 months, how m any times have you moved where you were living? 0 09/24/2023 At any time in the past 12 m [facility], were you homeless or living in a chcf (including now)? No 09/24/2023 IPV Inpatient Questions [...] Sign Reading Time Taken Comments Blood Pressure 115/77 09/24/2023 8:00 AM EDT Pulse 51 09/24/2023 8:14 AM EDT Temperature 36.4 ??C (97.5 ??F) 09/24/2023 8:00 AM ED T Respiratory Rate 14 09/24/2023 8:00 AM EDT Oxygen Saturation 98% 09/24/2023 8:00 AM EDT Inhaled Oxygen Concentration - - [...] Physician: Bhumi maguire. providers found Discharge Diagnoses: DIRT SHOVELER infection Operations/Major Procedures: Procedure(s): @VENTRICULO-PERITONEAL,-PLEURAL,-OTHER SHUNT (WRVU 14.05) ANITHASTEALTH 2,KINEVO STEREOTACTIC COMPUTER-ASSTD NAVIGATIONAL CRANIAL INTRADURAL (WRVU 3.75) 10/09/2023 Procedure(s): @VENTRICULO-PERITONEAL,-PLEURAL,-OTHER SHUNT (WRVU 14.05) ANITHASTEALTH 2,KINEVO STEREOTACTIC COMPUTER-ASSTD NAVIGATIONAL CRANIAL INTRADURAL (WRVU [...] Hospital Course: Patient was admitted electively to [facility] [place] the ED to the ICU and subsequently underwent VPS explantation with R EVD placement on 09/24/23. DIRT SHOVELER and blood cultures were sent and monitored [...] to pass. These medications can be obtained [id number]-[id number] and their use is recommended on an [...] removal in 10-14 days with the Neurosurgery OCEANOGRAPHER GEOLOGICAL/RN. You will have (2) separate appointments for suture/staple removal for all the following: - R side of head head and upper chest (Nylon) - R frontal head (isabella) - L side of head and chest (Nylon) Appointments: [x] Please follow up in the Neurosurgery Clinic in 4-6 weeks. Please call the Neurosurgery Office at [phone] if you do not receive a scheduled appointment within two weeks. Your follow-up appointment will be with: [x] Dr. Jimenez Imaging: [] No Imaging required at follow-up. [x] Head CT [] XR Shunt series HOW TO REACH NEUROSURGERY Office Hours (Thursday through Thursday 8am-5pm): Call On weekends or after office hours (after 5pm or before 8am): Call [phone] and ask the weight count operator to page the Neurosurgery Resident/Advanced Practice Provider production posting clerk. *Your surgeon may not be sap sd analyst (especially after office hours or on the weekend) so be ready totell about yourself and your surgery when you call. General Instructions None Future Appointments and Orders Future Orders Complete By Expires CT Head wo Contrast (Generic) [IHQ491 Custom] 11/10/2023 (Approximate) 05/11/2024 Process Instructions: Scheduling Instructions: Questions: Where will study be performed?: [facility] Radiology To be scheduled: Ordering department to coordinate scheduling Reason for exam and clinical history: s/p L v-pleural shunt Stat read required?: Does patient require sedation?: Sedation rationale: Scheduled Appointments: No future appointments. Primary Care Doctor: MARVA Gordon [phone] Signed: MARVA Reeves 10/11/2023 documented in this [...] to pass. These medications can be obtained sufj-byl-lflkhoj and their use is recommended on an [...] removal in 10-14 days with the Neurosurgery OCEANOGRAPHER GEOLOGICAL/RN. You will have (2) separate appointments for suture/staple removal for all the following: - R side of head head and upper chest (Nylon) - R frontal head (isabella) - L side of head and chest (Nylon) Appointments: [x] Please follow up in the Neurosurgery Clinic in 4-6 weeks. Please call the Neurosurgery Office at [phone] if you do not receive a scheduled appointment within two weeks. Your follow-up appointment will be with: [x] Dr. Jimenez Imaging: [] No Imaging required at follow-up. [x] Head CT [] XR Shunt series HOW TO REACH NEUROSURGERY Office Hours (Thursday through Thursday 8am-5pm): Call On weekends or after office hours (after 5pm or before 8am): Call [phone] and ask the weight count operator to page the Neurosurgery Resident/Advanced Practice Provider production posting clerk. *Your surgeon may not be sap sd analyst (especially after office hours or on the [...] IR All Drainage Procedures Bentley Arceo MD [facility] INTERVENTIONL RAD PRO ALVEOLOPLASTY W EXTRACTIONS, 4 OR MORE TEETH, PER QUADRANT N/A 10/18/2020 ALVEOPLASTY,IN CONJUNCTION WITH EXTRACTIONS,PER QUADRANT,ENT (WRVU 4.06) performed by Shan Rivero MD at [facility] OSC PRO EXTRACTION, ERUPTED TOOTH OR EXPOSED ROOT N/A 10/18/2020 EXTRACTION, ERUPTED TOOTH OR EXPOSED ROOT (WRVU 0.62) performed by Shan Rivero MD at [facility] OSC PRO IMPACT TOOTH REM BONY W/COMP N/A 10/18/2020 SURGICAL EXTRACTIONS, REMOVAL OF IMPACTED TOOTH, COMPLETELY BONY WITH UNUSUAL SURGICAL COMPLICATIONS (WRVU 2.91) performed by Shan Rivero MD at [facility] OSC PRO IMPACT TOOTH REMOV COMP BONY N/A 10/18/2020 SURGICAL EXTRACTIONS, REMOVAL OF IMPACTED TOOTH, COMPLETELY BONY (WRVU 1.93) performed by Shan Rivero MD at [facility] OSC PRO REMOVAL ERUPTED TOOTH WITH ELEVATION OF MUCOPERIOSTEAL FLAP Bilateral 10/18/2020 SURGICAL EXTRACTIONS REQUIRING ELEVATION OF MUCOPERIOSTEAL FLAP AND REMOVAL OF BONE OR SECTION OF TOOTH (WRVU 1.09) performed by Shan Rivero MD at [facility] OSC PRO REMOVAL, COMPLETE CSF SHUNT, W/O REPLACE Right 06/20/2023 @REMOVAL OF COMPLETE CSF SHUNT, W/O REPLACEMENT (WRVU 7.38) performed by Frank Murray MD at [facility] OR PRO REMOVAL, COMPLETE CSF SHUNT, W/O REPLACE N/A 09/24/2023 @REMOVAL OF COMPLETE CSF SHUNT, W/O REPLACEMENT (WRVU 7.38) performed by Rhoda Jimenez MD at [facility] OR PRO REPLACEMENT/REVISION, CSF SHUNT Right 06/09/2023 REVISION OR REPLACEMENT CSF SHUNT (WRVU 11.43) performed by Rhoda Jimenez MD at [facility] OR PRO REPLACEMENT/REVISION, CSF SHUNT Right 06/29/2023 REVISION OR REPLACEMENT CSF SHUNT (WRVU 11.43) [facility] RESECT SMALL INTEST, SINGL RESEC/ANAS N/A 07/03/2023 @BOWEL RESECTION, SMALL INTESTINE SINGLE ANASTOMOSIS (WRVU 20.82) performed by Frank uMrray MD at [facility] MAIN OR [facility] STEREOTACTIC CPTR ASSTD PX CRANIAL, INTRADURAL N/A 09/24/2023 STEREOTACTIC COMPUTER-ASSTD NAVIGATIONAL CRANIAL INTRADURAL (WRVU 3.75) performed by Rhoda Jimenez MD at [facility] MAIN OR [facility] TWIST HOLE SKULL, IMPLANT CATH/DEVICE 09/24/2023 @TWIST DRILL HOLE, IMPLANT VENTRICULAR OR ICP MONITOR. CATH. (WRVU 4.99) performed by Rhoda Jimenez MD at [facility] MAIN OR PRO UNLISTED PROCEDURE NERVOUS SYSTEM Right 05/24/2022 EXPLORATION VENTRICULO-PERITONEAL SHUNT (WRVU 25.48) performed by Rhoda Jimenez MD at [facility] MAIN OR PRO VENTRICULO-CISTERNOSTOMY Right 09/24/2023 @VENTRICULOCISTERNOSTOMY (WRVU 22.58) performed by Rhoda Jimenez MD at [facility] MAIN OR SHOULDER SURGERY ULNAR TUNNEL [...] caregiver whowill be coming in all day and then partial days /Th. Pt's mother [...] he return home with support from his mother/bone drier operator. Pt has no other inpatient PT or [...] Time: 15 minutes; Lito Martell, PT Pager: [phone] Physical Therapy Inpatient Rehabilitation Department * Maegan [...] IR All Drainage Procedures Bentley Arceo MD [facility] INTERVENTIONL RAD PRO ALVEOLOPLASTY W EXTRACTIONS, 4 OR MORE TEETH, PER QUADRANT N/A 10/18/2020 ALVEOPLASTY,IN CONJUNCTION WITH EXTRACTIONS,PER QUADRANT,ENT (WRVU 4.06) performed by Shan Rivero MD at [facility] OSC PRO EXTRACTION, ERUPTED TOOTH OR EXPOSED ROOT N/A 10/18/2020 EXTRACTION, ERUPTED TOOTH OR EXPOSED ROOT (WRVU 0.62) performed by Shan Rivero MD at [facility] OSC PRO IMPACT TOOTH REM BONY W/COMP N/A 10/18/2020 SURGICAL EXTRACTIONS, REMOVAL OF IMPACTED TOOTH, COMPLETELY BONY WITH UNUSUAL SURGICAL COMPLICATIONS (WRVU 2.91) performed by Shan Rivero MD at [facility] OSC PRO IMPACT TOOTH REMOV COMP BONY N/A 10/18/2020 SURGICAL EXTRACTIONS, REMOVAL OF IMPACTED TOOTH, COMPLETELY BONY (WRVU 1.93) performed by Shan Rivero MD at [facility] OSC PRO REMOVAL ERUPTED TOOTH WITH ELEVATION OF MUCOPERIOSTEAL FLAP Bilateral 10/18/2020 SURGICAL EXTRACTIONS REQUIRING ELEVATION OF MUCOPERIOSTEAL FLAP AND REMOVAL OF BONE OR SECTION OF TOOTH (WRVU 1.09) performed by Shan Rivero MD at [facility] OSC PRO REMOVAL, COMPLETE CSF SHUNT, W/O REPLACE Right 06/20/2023 @REMOVAL OF COMPLETE CSF SHUNT, W/O REPLACEMENT (WRVU 7.38) performed by Frank Murray MD at [facility] OR PRO REMOVAL, COMPLETE CSF SHUNT, W/O REPLACE N/A 09/24/2023 @REMOVAL OF COMPLETE CSF SHUNT, W/O REPLACEMENT (WRVU 7.38) performed by Rhoda Jimenez MD at [facility] OR PRO REPLACEMENT/REVISION, CSF SHUNT Right 06/09/2023 REVISION OR REPLACEMENT CSF SHUNT (WRVU 11.43) performed by hRoda Jimenez MD at [facility] MAIN OR PRO REPLACEMENT/REVISION, CSF SHUNT Right 06/29/2023 REVISION OR REPLACEMENT CSF SHUNT (WRVU 11.43) [facility] PRO RESECT SMALL INTEST, SINGL RESEC/ANAS N/A 07/03/2023 @BOWEL RESECTION, SMALL INTESTINE SINGLE ANASTOMOSIS (WRVU 20.82) performed by Frank Murray MD at [facility] MAIN OR [facility] STEREOTACTIC CPTR ASSTD PX CRANIAL, INTRADURAL N/A 09/24/2023 STEREOTACTIC COMPUTER-ASSTD NAVIGATIONAL CRANIAL INTRADURAL (WRVU 3.75) performed by Rhoda Jimenez MD at [facility] MAIN OR [facility] TWIST HOLE SKULL, IMPLANT CATH/DEVICE 09/24/2023 @TWIST DRILL HOLE, IMPLANT VENTRICULAR OR ICP MONITOR. CATH. (WRVU 4.99) performed by Rhoda Jimenez MD at [facility] MAIN OR PRO UNLISTED PROCEDURE NERVOUS SYSTEM Right 05/24/2022 EXPLORATION VENTRICULO-PERITONEAL SHUNT (WRVU 25.48) performed by Rhoda Jimenez MD at [facility] MAIN OR PRO VENTRICULO-CISTERNOSTOMY Right 09/24/2023 @VENTRICULOCISTERNOSTOMY (WRVU 22.58) performed by Rhoda Jimenez MD at [facility] MAIN OR SHOULDER SURGERY ULNAR TUNNEL [...] complete stall shower transfer w/ supervision, then respiratory medicine physician place w/ hands over head and eyes [...] evaluation. Chapin Costa presents s/p replacement of TUNNEL KILN OPERATOR shunt and EVD removal. He is mildly [...] and measurable assessment of functional outcome. Pager: [phone] MAEGAN ALMENDAREZ OT 10/10/2023 Occupational Therapy Rehabilitation Department * Rafia Simpson - 10/10/2023 1:13 PM EDT Nutrition Services Note - Low Nutrition Acuity Chapin Costa is a 52 y.o. male Reason for intervention: follow up Nutrition Plan Continue Diet Plan Encourage good PO Monitor Weight Chapin Costa was scheduled for a f/u nutrition evaluation. Construction Tech met with pt at bedside. This was day 1 off of NPO per documentation pt ate 100% of breakfast and underwriter solicitation director observed that pt had just finished all [...] unless consulted in the interim. Rafia Simpson Vice President Of Manufacturing * Olga Clifton MD - 10/10/2023 6:50 AM EDT [facility] PROGRESS NOTE ID: Chapin Costa 52 [...] course For questions please call NSGY pager [phone] Olga Clifton MD 10/10/2023 7:10 AM Clinical Documentation Improvement: Active Hospital Problems Diagnosis Shunt malfunction Resolved Hospital Problems No resolved problems to display. * Catalino Nickerson - 10/09/2023 8:22 PM EDT [facility] PROGRESS NOTE ID: Chapin Costa 52 [...] course For question please call NSGY pager [phone] Catalino Nickerson 10/09/2023 8:22 PM Clinical Documentation [...] Ricci MD - 10/09/2023 4:58 PM EDT [facility] PROGRESS NOTE ID: Chapin Costa 52 [...] course For question please call NS pager [phone] Laila Ricci MD 10/09/2023 4:58 PM Clinical Documentation Improvement: Active Hospital Problems Diagnosis Shunt malfunction Resolved Hospital Problems No resolved problems to display. * Merari Alberts, RN - 10/09/2023 4:53 PM EDT Pt sleeping off and on. Brenda po sips. Denies ALICEA. Neuro intact. Report to Dianelys in [facility]. * Frank Murray MD - 10/09/2023 10:23 [...] Ricci MD - 10/09/2023 6:52 AM EDT [facility] PROGRESS NOTE ID: Chapin Costa 52 [...] course For question please call NSGY pager [phone] Laila Ricci MD 10/09/2023 6:52 AM Clinical [...] Ricci MD - 10/08/2023 6:57 AM EDT [facility] PROGRESS NOTE ID: Chapin Costa 52 [...] -Dispo pending course For question please call NSAsthmatracker pager [phone] Laila Ricci MD 10/08/2023 6:57 AM Clinical Documentation Improvement: Active Hospital Problems Diagnosis Shunt malfunction Resolved Hospital Problems No resolved problems to display. * Laila Ricci MD - 10/07/2023 10:14 AM EDT [facility] PROGRESS NOTE ID: Chapin Costa 52 [...] course For question please call NSGY pager [phone] Laila Ricci MD 10/07/2023 10:14 AM Clinical Documentation Improvement: Active Hospital Problems Diagnosis Shunt malfunction Resolved Hospital Problems No resolved problems to display. * Gema Mayberry MD - 10/07/2023 9:58 AM EDT INFECTIOUS DISEASE FOLLOW-UP NOTE Active ID Issue(s): 52 y.o. male being followed by ID for TUNNEL KILN OPERATOR shunt infection. ID service signed off. Re engagement request by primary team for clearance for TUNNEL KILN OPERATOR shunt placement. Current Antimicrobial(s): IV Vancomycin Interval History/Subjective: Chapin Costa is a 52 y.o. 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 He has an EVD, and [...] multiple shunt revisions admitted 09/23/23 for a TUNNEL KILN OPERATOR shunt infection. He has an EVD, and [...] on the date of service on the nvxa-gw-ilyn encounter, chart review, clinical decision-making, documentation, and coordination of care with other team members regarding treatmentof infection Dr. Mayberry, TYRELL Attending, Department of Infectious diseases. 8 AM to 5 PM, Thursday - Thursday10/07/2023 * Laila Ricci MD - 10/06/2023 11:55 AM EDT [facility] NEUROS[facility] PROGRESS NOTE ID: Chapin Costa 52 [...] -Dispo pending course For question please call Badoo pager [phone] Laila Ricci MD 10/06/2023 11:55 AM Clinical [...] Ricci MD - 10/05/2023 7:00 AM EDT [facility] NE[facility] PROGRESS NOTE ID: Chapin Costa 52 y.o. male : 1970 LOS: 12 Neurosurgical Procedures this Admission: , Dr. Jimenez: VPS explantation, R EVD placement INTERVAL Hx: -SANIA -CSF NGTD, remains on [facility] -CT yesterday with improvement in ventricular caliber [...] CTH today with improvement in ventricular caliber rubber tubing backer to his baseline and his sx of [...] course For question please call NSGY pager [phone] Laila Ricci MD 10/05/2023 5:41 AM Clinical [...] exam unchanged. EVD was clamped distally andproximally. Construction Tech paged neurosurgery at 0925. Education was provided to patient regarding safety and drain management. Pt verbalized understanding. * Laila Ricci MD - 10/04/2023 6:14 AM EDT [facility] PROGRESS NOTE ID: Chapin Costa 52 [...] 16.3 PLATELET 239 Recent Labs 10/03/23 2249 10/03/23205210/03/233 NA -- 131* 132* K 3.8 -- [...] CTH today with improvement in ventricular caliber rubber tubing backer to his baseline and his sx of ALICEA and fatigue now resolved. Recently with hyponatremia, will obtain urine labs this morning. Plan: -Q2 neuro checks, Q2 VS -EVD open @ 0, not transducing -ID consult - following recs -advance diet as tolerated -bowel regimen -DVT ppx SCDs, hold SQH -SBP 90-160 -Will discuss VPS insertion timing -Dispo pending course For question please call Badoo pager [phone] Laila Ricci MD 10/04/2023 6:14 AM Clinical Documentation Improvement: Active Hospital Problems Diagnosis Shunt malfunction Resolved Hospital Problems No resolved problems to display. * Laila Ricci MD - 10/03/2023 5:23 PM EDT [facility] NE[facility] PROGRESS NOTE ID: Chapin Costa 52 [...] course For question please call NSGY pager [phone] Laila Ricci MD 10/03/2023 5:24 PM Clinical Documentation Improvement: Active Hospital Problems Diagnosis Shunt malfunction Resolved Hospital Problems No resolved problems to display. * Daniela Murguia RN - 10/03/2023 2:01 PM EDT Page Sent Successfully Page Confirmation To Pager number: [phone] From Submitter: Daniela Murguia Urgency Level: FY Callback Number: [phone] The following Message was sent: [] - Callback:[phone], Wilma Costa. Pt's mother arrived, requested to speak to Provider - Daniela Murguia The following status was returned from the room service server: Page for [phone] successfully sent to [phone] having status of Available. OK * Mirian Murrieta PA - 10/02/2023 2:02 PM EDT [facility] NEUR[facility] EVD PROCEDURE NOTE PATIENT: Chapin Costa [...] was draped in the usual sterile fashion. Chandler and sutures securing the EVD were removed [...] Marcus MD - 10/02/2023 9:38 AM EDT [facility] PROGRESS NOTE ID: Chapin Costa 52 [...] course For question please call NSGY pager [phone] Mo Marcus MD 10/02/2023 9:38 AM Clinical [...] Sent Successfully Page Confirmation To Pager number: [phone] From Submitter: Daniela Murguia Urgency Level: Urgent Callback Number: [phone] The following Message was sent: [Urgent] - Callback:[phone] RM 345, Gideon Costa Please call about EVD dressing/placement immediately thx [...] Rodriguez Urgency Level: Call Me Callback Number: [phone] The following Message was sent: [Call Me] - Callback:[phone] Igor Pt states he is unable to look up which is new, his RN is at lunch - Madina Rodriguez The following status was returned from the room service server: Page for [phone] successfully sent to [phone] having status of Available. * Tavai Linton DT - 10/01/2023 12:36 PM EDT Nutrition Services Note - Low Nutrition Acuity Chapin Costa is a 52 y.o. male Reason for intervention: hospital day 9 Nutrition Plan: Continue current diet Encourage good PO Updated wt requested Monitor PO intakes Pt screened for hospital length of stay and underwriter solicitation director met pt at bedside. Pt stated that [...] unless consulted in the interim. CESAR Sampson Poured Wall Foreman * Laila Ricci MD - 10/01/2023 6:15 AM EDT [facility] PROGRESS NOTE ID: Chapin Costa 52 [...] asymmetry Tongue midline No pronator drift MOTOR: RUE:5 LUE:5/5 RLE: 5 LLE: 5 LT sensation intact x 4 [...] course For question please call NSGY pager [phone] Laila Ricci MD 10/01/2023 6:15 AM Clinical [...] y.o. male being followed by ID for TUNNEL KILN OPERATOR shunt infection. Interim Events: GPR from the 09/23/23 shunt culture is still not identified. 09/24 repeat CSF cell count was 80 WBCs (93% PMNs) with protein 30 and glucose 106. This is higher than the 4 WBCs on the fluid obtained on 09/23/23 from the TUNNEL KILN OPERATOR shunt. Gram stain negative, culture negative. AFB and fungal cultures are not finalized yet Dr. Jimenez (Neurosurgery) is planning to replace EVD with new TUNNEL KILN OPERATOR shunt. He has been afebrile with nearly [...] ALKPHOS 124 07/23/2023 BILITOT 0.4 07/23/2023 Micro: DIRT SHOVELER shunt culture growing Gram Positive Rods Imaging: Last was CT 09/23 Impression: Chapin Costa is a 52 y.o. 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 He has an EVD, and [...] culture ahead of decisions for permanent new TUNNEL KILN OPERATOR shunt. Recommendation: Continue vancomycin with AUC dosing per Pharm Antibiotic safety monitoring with weekly BUN/Cr, LFTs, CBC Monitor infection clearance by CBC, ESR, CRP and blood cultures q24h when febrile Repeat cell count and culture of CSF Replacing TUNNEL KILN OPERATOR shunt per Neurosurg Discussed with patient, family and team ID will follow with you. Jenna Hernandez MD ID Attending, nail assembly machine operator Page [phone] I spent a total of 35 minutes on the date of service on the [id number] encounter, chart review, clinical decision-making, documentation, and coordination of care regarding treatment of infection asdetailed in note above. * Laila Ricci MD - 09/30/2023 5:54 AM EDT [facility] PROGRESS NOTE ID: Chapin Costa 52 [...] drift MOTOR: RUE:5/5 LUE:5/5 RLE: 5/5 LLE: 55 LT sensation intact x 4 Dressing CDI [...] course For question please call NSGY pager [phone] Laila Ricci MD 09/30/2023 5:54 AM Clinical Documentation Improvement: Active Hospital Problems Diagnosis Shunt malfunction Resolved Hospital Problems No resolved problems to display. * Daniela Murguia RN - 09/29/2023 10:14 AM EDT Page Sent Successfully Page Confirmation To Pager number: [phone] From Submitter: Daniela uMrguia Urgency Level: Call Me Callback Number: [phone] The following Message was sent: [Call Me] - Callback:[phone] [facility] 345. Gideon Costa EVD drain output< 10 mL for 2 hour period - Daniela Murguia The following status was returned from the room service server: Page for [phone] successfully sent to [phone] having status of Available. * Laila Ricci MD - 09/29/2023 5:37 AM EDT [facility] PROGRESS NOTE ID: Chapin Costa 52 [...] course For question please call NSGY pager [phone] Laila Ricci MD 09/29/2023 5:37 AM Clinical [...] Peter Wood Urgency Level: FYI Callback Number: [phone] The following Message was sent: [FYI] - Callback:[phone] Wilma Costa pt's mother asked if I could let ID know pt spiked a 99.7F temp at 1600 - Peter Wood The following status was returned from the room service server: Page for [phone] successfully sent to [phone] having status of [...] Fuentes Urgency Level: Call Me Callback Number: [phone] The following Message was sent: [Call Me] - Callback:[phone] Costa, pt drain out 6cc, also pt report headache 06/02 no neuro deficits - Deng Fuentes The following status was returned from the room service server: Page for [phone] successfully sent to [phone] having status of Available. * Laila Ricci MD - 09/28/2023 5:37 AM EDT [facility] PROGRESS NOTE ID: Chapin Costa 52 [...] course For question please call NSGY pager [phone] Laila Ricci MD 09/28/2023 5:37 AM Clinical Documentation Improvement: Active Hospital Problems Diagnosis Shunt malfunction Resolved Hospital Problems No resolved problems to display. * Deng Fuentes RN - 09/27/2023 6:59 PM EDT Page Sent Successfully Page Confirmation To Pager number: [phone] From Submitter: Deng Fuentes Urgency Level: FYI Callback Number: [phone] The following Message was sent: [FY] - Callback:[phone] Costa, drain output 7cc over 2hrs, [...] Fuentes Urgency Level: Call Me Callback Number: [phone] The following Message was sent: [Call Me] - Callback:[phone] Nawaf Costa, EVD output 8cc for 2hrs, notifying per order - Deng Fuentes The following status was returned from the room service server: Page for [phone] successfully sent to [phone] having status of [...] Ricci MD - 09/27/2023 6:00 AM EDT [facility] NEUROSURGERY PROGRESS NOTE ID: Chapin Costa 52 [...] course For question please call NSGY pager [phone] Laila Ricci MD 09/26/2023 8:01 PM Clinical Documentation Improvement: Active Hospital Problems Diagnosis Shunt malfunction Resolved Hospital Problems No resolved problems to display. * Dianelys Call RN - 09/27/2023 1:33 AM EDT 1:33 AM Page Sent Successfully Page Confirmation To Pager number: [phone] From Submitter: Dianelys Call Urgency Level: Call Me Callback Number: [phone] The following Message was sent: [Call Me] - Callback:[phone] Costa- last EVD output was 5mL. [...] Ricci MD - 09/26/2023 9:41 AM EDT [facility] NEUROSURGERY PROGRESS NOTE ID: Chapin Costa 52 [...] -Dispo pending course For question please call [facility] pager [phone] Laila Ricci MD 09/26/2023 9:41 AM Clinical Documentation Improvement: Active Hospital Problems Diagnosis Shunt malfunction Resolved Hospital Problems No resolved problems to display. * Robin Jones RN - 09/25/2023 8:54 AM EDT OK to hold Metoprolol this Am for SBP <100 per PA. * Laila Ricci MD - 09/25/2023 5:09 AM EDT [facility] NEUROS[facility] PROGRESS NOTE ID: Chapin Costa 52 [...] asymmetry Tongue midline No pronator drift MOTOR: RUE:55 LUE:55 RLE: 5/5 LLE: 5/5 LT sensation intact [...] -Dispo pending course For question please call [facility] pager [phone] Laila Ricci MD 09/25/2023 5:09 AM Clinical [...] Amrit LEE. 1215 Ever to go to [facility] not back to [facility]. Paged [phone] regarding drain being off. 1220 Drain opened, at 15 cm H20 as ordered. 1240 Report to NSCU RN. 1300 Drain off and Ever transported to [facility] by this RN. * Mo Marcus MD - 09/24/2023 11:54 AM EDT [facility] Neurosurgery Consult / Inpatient Progress Note 09/24/23 11:55 AM Patient Name: Chapin Cosat Patient Age: 52 y.o. Birthdate: 1970 Admit [...] page if further consultation required. Neurosurgery Pager: [phone] Mo Marcus MD 09/24/2023 11:55 AM Clinical Documentation Improvement: Active Hospital Problems Diagnosis Shunt malfunction Resolved Hospital Problems No resolved problems to display. * Trip Murphy MD - 09/24/2023 4:41 AM EDT [facility] Initial Assessment Note I established audio/visual [...] Q03.9 Shunt malfunction T85.618A Small bowel obstruction K56.605 CAMERA: No distress on RA Patient Vitals [...] CSF CT [address] 161 DIRT SHOVELER Shunt Culture Specimen: Cerebrospinal Shunt Fluid Result [...] Value POC Glucose 97 Type and screen ([facility]/DULCE MARIA) Result Value ABORH Type A POSITIVE Patient BB History Found Expires at 0953 on: 09/27/2023 Ab Screen Interp Negative ABORH Recheck Status Result Value ABORH Type Recheck Completed Type and Screen Validity Result Value T&S only valid at [facility] Hosp Calcium Ionized Whole Blood, CHANO Result Value pH Chano 7.39 ICa Whole Blood 1.20 A/P: #VPS infection -Vancomycin/ceftriaxone/metronidazole/neuro checks as per [facility] #Hypothyroidism -Levothyroxine #Seizure disorder -Topiramate This is a non-billable note. * Ellie Riddle RN - 09/24/2023 4:08 AM EDT Page Sent Successfully Page Confirmation To Pager number: [phone] From Submitter: Ellie Riddle Urgency Level: FYI Callback Number: [phone] The following Message was sent: [FYI] - Callback:[phone] [facility], [phone], need an additional iv. thank you - Ellie Riddle The following status was returned from the room service server: Page for [phone] successfully sent to [phone] having status of Available. documented in this encounter H&P Notes * Richard Valles MD - 09/24/2023 7:28 AM EDT [facility] NEUROSURGERY H&PNOTE ID: Chapin Costa 52 y.o. [...] IR All Drainage Procedures Bentley Arceo MD [facility] RAD PRO ALVEOLOPLASTY W EXTRACTIONS, 4 OR MORE TEETH, PER QUADRANT N/A 10/18/2020 ALVEOPLASTY,IN CONJUNCTION WITH EXTRACTIONS,PER QUADRANT,ENT (WRVU 4.06) performed by Shan Rivero MD at [facility] OSC PRO EXTRACTION, ERUPTED TOOTH OR EXPOSED ROOT N/A 10/18/2020 EXTRACTION, ERUPTED TOOTH OR EXPOSED ROOT (WRVU 0.62) performed by Shan Rivero MD at [facility] O[facility] PRO IMPACT TOOTH REM BONY W/COMP N/A 10/18/2020 SURGICAL EXTRACTIONS, REMOVAL OF IMPACTED TOOTH, COMPLETELY BONY WITH UNUSUAL SURGICAL COMPLICATIONS (WRVU 2.91) performed by Shan Rivero MD at [facility] O[facility] PRO IMPACT TOOTH REMOV COMP BONY N/A 10/18/2020 SURGICAL EXTRACTIONS, REMOVAL OF IMPACTED TOOTH, COMPLETELY BONY (WRVU 1.93) performed by Shan Rivero MD at [facility] O[facility] PRO REMOVAL ERUPTED TOOTH WITH ELEVATION OF MUCOPERIOSTEAL FLAP Bilateral 10/18/2020 SURGICAL EXTRACTIONS REQUIRING ELEVATION OF MUCOPERIOSTEAL FLAP AND REMOVAL OF BONE OR SECTION OF TOOTH (WRVU 1.09) performed by Shan Rivero MD at [facility] O[facility] PRO REMOVAL, COMPLETE CSF SHUNT, W/O REPLACE Right 06/20/2023 @REMOVAL OF COMPLETE CSF SHUNT, W/O REPLACEMENT (WRVU 7.38) performed [facility] REPLACEMENT/REVISION, CSF SHUNT Right 06/09/2023 REVISION OR REPLACEMENT CSF SHUNT (WRVU 11.43) performed by Rhoda Jimenez MD at [facility] MA[facility] OR PRO REPLACEMENT/REVISION, CSF SHUNT Right 06/29/2023 REVISION OR REPLACEMENT CSF SHUNT (WRVU 11.43) performed by Rhoda Jimenez MD at [facility] CSI PRO RESECT SMALL INTEST, SINGL RESEC/ANAS N/A 07/03/2023 @BOWEL RESECTION, SMALL INTESTINE SINGLE ANASTOMOSIS (WRVU 20.82) performed by Frank Murray MD at [facility] MA[facility] OR PRO UNLISTED PROCEDURE NERVOUS SYSTEM Right 05/24/2022 EXPLORATION VENTRICULO-PERITONEAL SHUNT (WRVU 25.48) performed by Rhoda Jimenez MD at [facility] MA[facility] OR SHOULDER SURGERY ULNAR TUNNEL [...] Department Center 10/21/2023 10:00 AM Annalise Rivera, [employer] PLAY[employer] ASSISTANT [facility] Neurosurgery Pager: [phone] Richard Valles MD 09/24/2023 7:29 AM Clinical [...] concern for VPS infection. Per review of [facility] notes: Ever presents to [facility] ED after 3 days on generalized ALICEA with pain, edema, and erythema to his shunt site locate behind his right ear. Also mother and ever report recent fevers to 100.7 for which he has self administered Tylenol with good effect, chills, lethargy, and body aches which have historically corresponded with a VPS malfunction. This prompted Ever ot contact NSGY at [facility] who advised him to be seen in [...] IR All Drainage Procedures Bentley Arceo MD [facility] RAD PRO ALVEOLOPLASTY W EXTRACTIONS, 4 OR MORE TEETH, PER QUADRANT N/A 10/18/2020 ALVEOPLASTY,IN CONJUNCTION WITH EXTRACTIONS,PER QUADRANT,ENT (WRVU 4.06) performed by Shan Rivero MD at [facility] O[facility] PRO EXTRACTION, ERUPTED TOOTH OR EXPOSED ROOT N/A 10/18/2020 EXTRACTION, ERUPTED TOOTH OR EXPOSED ROOT (WRVU 0.62) performed by Shan Rivero MD at [facility] PRO IMPACT TOOTH REM BONY W/COMP N/A 10/18/2020 SURGICAL EXTRACTIONS, REMOVAL OF IMPACTED TOOTH, COMPLETELY BONY WITH UNUSUAL SURGICAL COMPLICATIONS (WRVU 2.91) performed by Shan Rivero MD at [facility] O[facility] PRO IMPACT TOOTH REMOV COMP BONY N/A 10/18/2020 SURGICAL EXTRACTIONS, REMOVAL OF IMPACTED TOOTH, COMPLETELY BONY (WRVU 1.93) performed by Shan Rivero MD at [facility] O[facility] PRO REMOVAL ERUPTED TOOTH WITH ELEVATION OF MUCOPERIOSTEAL FLAP Bilateral 10/18/2020 SURGICAL EXTRACTIONS REQUIRING ELEVATION OF MUCOPERIOSTEAL FLAP AND REMOVAL OF BONE OR SECTION OF TOOTH (WRVU 1.09) performed by Shan Rivero MD at [facility] O[facility] PRO REMOVAL, COMPLETE CSF SHUNT, W/O REPLACE Right 06/20/2023 @REMOVAL OF COMPLETE CSF SHUNT, W/O REPLACEMENT (WRVU 7.38) performed [facility] REPLACEMENT/REVISION, CSF SHUNT Right 06/09/2023 REVISION OR REPLACEMENT CSF SHUNT (WRVU 11.43) performed by Rhoda Jimenez MD at [facility] MA[facility] OR PRO REPLACEMENT/REVISION, CSF SHUNT Right 06/29/2023 REVISION OR REPLACEMENT CSF SHUNT (WRVU 11.43) performed by Rhoda Jimenez MD at [facility] CSI PRO RESECT SMALL INTEST, SINGL RESEC/ANAS N/A 07/03/2023 @BOWEL RESECTION, SMALL INTESTINE SINGLE ANASTOMOSIS (WRVU 20.82) performed by Frank Murray MD at [facility] MA[facility] OR PRO UNLISTED PROCEDURE NERVOUS SYSTEM Right 05/24/2022 EXPLORATION VENTRICULO-PERITONEAL SHUNT (WRVU 25.48) performed by Rhoda Jimenez MD at [facility] MAIN OR SHOULDER SURGERY ULNAR TUNNEL [...] BP (Arterial Line): -- Lines/Drains/Airways: PIV 09/23/23 210 20 gauge median cubital vein (antecubital fossa), [...] 09/23/2023 6:29 PM) Result Value WORKSTATION ID [id number] Impression Right ventriculopleural shunt without kink or discontinuity identified. Thank you for letting us participate in the care of this patient. If you are a health care provider and have any questions regarding this report, please contact the number below. For patients who have questions please contact the health personal caregiver that requested your imaging first. Head wo Contrast (Generic) (Exam End: 09/23/2023 8:01 PM) Result Value WORKSTATION ID [id number] Impression Unchanged caliber of the ventricles. Thank you for letting us participate in the care of this patient. If you are a health care provider and have any questions regarding this report, please contact the number below. For patients who have questions please contact the health personal caregiver that requested your imaging first. : Physical [...] Deng Fuentes Urgency Level: FYI Callback Number: [phone] The following Message was sent: [] - Callback:[phone] Costa, drain output 8cc over 2hr, [...] Valles MD - 09/23/2023 8:56 PM EDT [facility] NEUROS[facility]GERY TUNNEL KILN OPERATOR SHUNT TAP NOTE Date: 09/24/23 Patient: Chapin [...] Sterile gloves used with 23G butterfly needle. Leming identified. Clear appearing CSF aspirated after 1 [...] who provides additional history. PMH congenial hydrocephalus. 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 Last revision June 2023, ED Course: [...] 09/23/2023 6:29 PM) Result Value WORKSTATION ID [id number] Impression Right ventriculopleural shunt without kink or discontinuity identified. Thank you for letting us participate in the care of this patient. If you are a health care provider and have any questions regarding this report, please contact the number below. For patients who have questions please contact the health personal caregiver that requested your imaging first. Neurosurgery consult IV fluids Assessment/plan: R/o shunt infection Neurosurgery consult pending at time of shift change. Care to oncoming team Annita Dhaliwal MD 09/23/23 2148 * Derek Monson MD - 09/23/2023 7:06 PM EDT ED Resident Note HPI: Chapin Costa is a 52 y.o. male with past medical history significant for congenital hydrocephalus with retinal TUNNEL KILN OPERATOR shunt placement in 1973, most recent shunt [...] place, and time. ED Course as of 09/23/23 2243 ThuSep 23, [id number] WBC(!): 10.8 4 CRP: 3.6 CT Head wo Contrast (Generic) Final Result Unchanged caliber of the ventricles. Thank you for letting us participate in the care of this patient. If you are a health care provider and have any questions regarding this report, please contact the number below. For patients who have questions please contact the health personal caregiver that requested your imaging first. Shunt Series Final Result Right ventriculopleural shunt without kink or discontinuity identified. Thank you for letting us participate in the care of this patient. If you are a health care provider and have any questions regarding this report, please contact the number below. For patients who have questions please contact the health personal caregiver that requested your imaging first. Procedures Assessment and Plan: 52 y.o. 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 Derek Monson MD Resident 09/23/23 0810 Associated attestation - Annita Dhaliwal MD - [...] history of shunt revisions presents to ED [id number] ambulatory complaining of increasing generalized headache with [...] Operative Note Patient Name: Chapin Costa : [id number] MR#: [id number] Case Date: 09/24/2023 Surgeon: Surgeons and Role: [...] Bundle Used? N/A * Op Note - Rhoad Jimenez MD - 10/09/2023 1:42 PM EDT [facility] Operative Note Patient Name: Chapin Costa : [id number] MR#: [id number] Case Date: 10/09/2023 Surgeon: Surgeons and Role: [...] and chest, this is marked with green [place]. The patient was taken back to the operating by anesthesia. General endotracheal anesthesia was obtained without difficulty. The patient was positioned supine, his head was turned slightly toward the right and a cerebellar, such as the left occiput was exposed. The head was now registered to the neuronavigation system using Checkout10om. Landmarks were used to verify orientation, and accuracy. We planned a trajectory from the left parietal occipital junction to the center of the left frontal horn. The left occipital lobe was now shaved over the entry site. The right frontal EVD was pulled sterilely, and the drain exit site was sutured with a single 4-0 Monocryl in [id number] fashion. The entire left head and chest [...] Appropriate) * Consult Note - Robin Sood [facility] - 09/29/2023 6:35 AM EDT [facility] Pharmacokinetics Note Drug: Vancomycin Pharmacokinetic target: Ctrough 15-20 mg/L Current regimen: 1250 mg IV every 12 hours Recent measured serum creatinine values: 09/29/2023 01:45 1.07 mg/dL 09/27/2023 03:09 1.07 mg/dL 09/26/2023 03:30 1.15 mg/dL Assessment: Analysis of the most recent level(s) using [email or web address] gives the following patient-specific pharmacokinetic parameters: CL: [...] INFECTIOUS DISEASE PROGRESS NOTE Reason for Consult: TUNNEL KILN OPERATOR Shunt Infection Consulting Service: Neurosurgery Consulting Attending: Rhoda Jimenez MD Admission Date: 09/23/2023 Interval Events Chapin Costa is a 52 y.o. 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 States that his ALICEA and [...] IR All Drainage Procedures Bentley Arceo MD [facility] RAD PRO ALVEOLOPLASTY W EXTRACTIONS, 4 OR MORE TEETH, PER QUADRANT N/A 10/18/2020 ALVEOPLASTY,IN CONJUNCTION WITH EXTRACTIONS,PER QUADRANT,ENT (WRVU 4.06) performed by Shan Rivero MD at [facility] OSC PRO EXTRACTION, ERUPTED TOOTH OR EXPOSED ROOT N/A 10/18/2020 EXTRACTION, ERUPTED TOOTH OR EXPOSED ROOT (WRVU 0.62) performed by Shan Rivero MD at [facility] OSC PRO IMPACT TOOTH REM BONY W/COMP N/A 10/18/2020 SURGICAL EXTRACTIONS, REMOVAL OF IMPACTED TOOTH, COMPLETELY BONY WITH UNUSUAL SURGICAL COMPLICATIONS (WRVU 2.91) performed by Shan Rivero MD at [facility] OSC PRO IMPACT TOOTH REMOV COMP BONY N/A 10/18/2020 SURGICAL EXTRACTIONS, REMOVAL OF IMPACTED TOOTH, COMPLETELY BONY (WRVU 1.93) performed by Shan Rivero MD at [facility] OSC PRO REMOVAL ERUPTED TOOTH WITH ELEVATION OF MUCOPERIOSTEAL FLAP Bilateral 10/18/2020 SURGICAL EXTRACTIONS REQUIRING ELEVATION OF MUCOPERIOSTEAL FLAP AND REMOVAL OF BONE OR SECTION OF TOOTH (WRVU 1.09) performed by Shan Rivero MD at [facility] OSC PRO REMOVAL, COMPLETE CSF SHUNT, W/O REPLACE Right 06/20/2023 @REMOVAL OF COMPLETE CSF SHUNT, W/O REPLACEMENT (WRVU 7.38) performed by Frank Murray MD at [facility] OR PRO REMOVAL, COMPLETE CSF SHUNT, W/O REPLACE N/A 09/24/2023 @REMOVAL OF COMPLETE CSF SHUNT, W/O REPLACEMENT (WRVU 7.38) performed by Rhoda Jimenez MD at [facility] OR PRO REPLACEMENT/REVISION, CSF SHUNT Right 06/09/2023 REVISION OR REPLACEMENT CSF SHUNT (WRVU 11.43) performed by Rhoda Jimenez MD at [facility] MA[facility] OR PRO REPLACEMENT/REVISION, CSF SHUNT Right 06/29/2023 REVISION OR REPLACEMENT CSF SHUNT (WRVU 11.43) performed by Rhoda Jimenez MD at [facility] CSI PRO RESECT SMALL INTEST, SINGL RESEC/ANAS N/A 07/03/2023 @BOWEL RESECTION, SMALL INTESTINE SINGLE ANASTOMOSIS (WRVU 20.82) performed by Frank Murray MD at [facility] MA[facility] OR PRO STEREOTACTIC CPTR ASSTD PX CRANIAL, INTRADURAL N/A 09/24/2023 STEREOTACTIC COMPUTER-ASSTD NAVIGATIONAL CRANIAL INTRADURAL (WRVU 3.75) performed by Rhoda Jimenez MD at [facility] OR PRO TWIST HOLE SKULL, IMPLANT CATH/DEVICE 09/24/2023 @TWIST DRILL HOLE, IMPLANT VENTRICULAR OR ICP MONITOR. CATH. (WRVU 4.99) performed by Rhoda Jimenez MD at [facility] MA[facility] OR PRO UNLISTED PROCEDURE NERVOUS SYSTEM Right 05/24/2022 EXPLORATION VENTRICULO-PERITONEAL SHUNT (WRVU 25.48) performed by Rhoda Jimenez MD at [facility] MA[facility] OR PRO VENTRICULO-CISTERNOSTOMY Right 09/24/2023 @VENTRICULOCISTERNOSTOMY (WRVU 22.58) performed by Rhoda Jimenez MD at [facility] MAIN OR SHOULDER SURGERY ULNAR TUNNEL [...] laboratory, microbiology, and diagnostic/radiology/procedure results: Recent Labs 09/25/2331909/24/23 0030 09/23/23 1810 WBC 18.1* 11.6* 10.8* [...] Negative 07/02/20231952 BILIRUBINUA Negative 07/02/20231952 Microbiology: Prelim DIRT SHOVELER shunt culture growing Gram Positive Rods Antimicrobials: Vancomycin CTX d/c 09/23 Flagyl d/c 09/23 Imaging/diagnostics: CT Head 09/22, no change in caliber of ventricles Impression: Chapin Costa is a 52 y.o. 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 Today he has an elevated white count which could be post surgical. Pt has GPR's growing on the prelim DIRT SHOVELER culture. The multitude of organisms this could [...] . Please page ID Red team (pager [phone]) with questions or concerns. Jong Maria, DO Internal Medicine PGY-2 Pager: [phone] Epic Chat 09/25/2023 Associated attestation - Leighton [...] WBCs (93% PMNs) with protein 30 and [id number]. This is higher than the 4 WBCs on the fluid obtained on 09/23/23 off of the TUNNEL KILN OPERATOR shunt. Gram stain negative, culture pending from [...] have all improved since removal of the TUNNEL KILN OPERATOR shunt. I will reach out to Dr. Jimenez (Neurosurgery) regarding plans for a new TUNNEL KILN OPERATOR shunt. Mr. Costa's WBC count was up [...] INFECTIOUS DISEASE CONSULTATION NOTE Reason for Consult: TUNNEL KILN OPERATOR Shunt Infection Consulting Service: Neurosurgery Consulting Attending: Rhoda Jimenez MD Admission Date: 09/23/2023 History of Present Illness: Chapin Costa is a 52 y.o. 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 Previously had a TUNNEL KILN OPERATOR shunt which was complicated by an abdominal [...] IR All Drainage Procedures Bentley Arceo MD [facility] RAD PRO ALVEOLOPLASTY W EXTRACTIONS, 4 OR MORE TEETH, PER QUADRANT N/A 10/18/2020 ALVEOPLASTY,IN CONJUNCTION WITH EXTRACTIONS,PER QUADRANT,ENT (WRVU 4.06) performed by Shan Rivero MD at [facility] OSC PRO EXTRACTION, ERUPTED TOOTH OR EXPOSED ROOT N/A 10/18/2020 EXTRACTION, ERUPTED TOOTH OR EXPOSED ROOT (WRVU 0.62) performed by Shan Rivero MD at [facility] OSC PRO IMPACT TOOTH REM BONY W/COMP N/A 10/18/2020 SURGICAL EXTRACTIONS, REMOVAL OF IMPACTED TOOTH, COMPLETELY BONY WITH UNUSUAL SURGICAL COMPLICATIONS (WRVU 2.91) performed by Shan Rivero MD at [facility] OSC PRO IMPACT TOOTH REMOV COMP BONY N/A 10/18/2020 SURGICAL EXTRACTIONS, REMOVAL OF IMPACTED TOOTH, COMPLETELY BONY (WRVU 1.93) performed by Shan Rivero MD at [facility] OSC PRO REMOVAL ERUPTED TOOTH WITH ELEVATION OF MUCOPERIOSTEAL FLAP Bilateral 10/18/2020 SURGICAL EXTRACTIONS REQUIRING ELEVATION OF MUCOPERIOSTEAL FLAP AND REMOVAL OF BONE OR SECTION OF TOOTH (WRVU 1.09) performed by Shan Rivero MD at [facility] OSC PRO REMOVAL, COMPLETE CSF SHUNT, W/O REPLACE Right 06/20/2023 @REMOVAL OF COMPLETE CSF SHUNT, W/O REPLACEMENT (WRVU 7.38) [facility] REPLACEMENT/REVISION, CSF SHUNT Right 06/09/2023 REVISION OR REPLACEMENT CSF SHUNT (WRVU 11.43) performed by Rhoda Jimenez MD at [facility] OR PRO REPLACEMENT/REVISION, CSF SHUNT Right 06/29/2023 REVISION OR REPLACEMENT CSF SHUNT (WRVU 11.43) performed by Rhoda Jimenez MD at [facility] CSI PRO RESECT SMALL INTEST, SINGL RESEC/ANAS N/A 07/03/2023 @BOWEL RESECTION, SMALL INTESTINE SINGLE ANASTOMOSIS (WRVU 20.82) performed by Frank Murray MD at [facility] OR PRO UNLISTED PROCEDURE NERVOUS SYSTEM Right 05/24/2022 EXPLORATION VENTRICULO-PERITONEAL SHUNT (WRVU 25.48) performed by Rhoda Jimenez MD at [facility] MA[facility] OR SHOULDER SURGERY ULNAR TUNNEL [...] Negative 07/02/20231952 BILIRUBINUA Negative 07/02/20231952 Microbiology: Prelim DIRT SHOVELER shunt culture growing Gram Positive Rods Antimicrobials: Vancomycin CTX Flagyl Imaging/diagnostics: CT Head 09/22, no change in caliber of ventricles Impression: Chapin Costa is a 52 y.o. 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 Pt has GPR's growing on the prelim DIRT SHOVELER culture. The multitude of organisms this could [...] . Please page ID Red team (pager [phone]) with questions or concerns. Jong Maria, DO Internal Medicine PGY-2 Pager: [phone] Epic Chat 09/24/2023 Associated attestation - Leighton [...] he is nows/p complete removal of his TUNNEL KILN OPERATOR shunt on 09/24/23 with placement of an EVD. Shunt culture from 09/23/23is growing GPRs, and cultures from 09/24/23 are pending. We have recommended IV vancomycin monotherapy for what appears to be a monomicrobial Gram positive infection. The two GPRs that most commonly cause DIRT SHOVELER shunt infections are Cutibacterium and Corynebacterium. Dr. Maria's note also mentions Listeria, for which vancomycin is not recommended in DIRT SHOVELER infections, but this is not a common cause of CNSshunt infections. CSF analysis on 09/23/23 showed only 4 WBCs, with a normal glucose (65), and a protein of 70. This is relevant, as 10 days may be sufficient after shunt removal. In general, it is recommended to resample the CSF in 48hrs for culture. If negative, then TUNNEL KILN OPERATOR shunt can be replaced. Leighton Carmona MD * Brief Op Note - Mo Marcus MD - 09/24/2023 11:01 AM EDT Brief Operative Note Patient Name: Chapin Costa : [id number] MR#: [id number] Case Date: 09/24/2023 Surgeon: Surgeons and Role: [...] Jimenez MD - 09/24/2023 10:03 AM EDT [facility] Operative Note Patient Name: Chapin Costa : [id number] MR#: [id number] Case Date: 09/24/2023 Surgeon: Surgeons and Role: [...] the 3D thin slicehead CT using the avVenta system. Navigational registration was checked for accuracy [...] [address] Appointed Guardian(s) Contact Information: [phone] Guardianship paperwork on file?: Yes If AD's have not been completed the following surrogate would be surrogate decision maker per [place] surrogate decision making law. (Only good for 180 days) Any patient receiving care in [place] must abide by [place] law. The hierarchy for surrogate decision making [...] (i) The agent with financial power of deputy prosecuting attorney or a conservator appointed in accordance [...] were you homeless or living in a chcf (including now)?: No In the past 12 [...] Current DME: none Home Address confirmed as: [address] [place] [address] [place] [address] Social & Family Supports: All names listed below confirmed with patient as current and correct Extended Emergency Contact Information Primary Emergency Contact: Tracy Fregoso Address: [address] Mobile Relation: Guardianship Secondary Emergency Contact: RICH FREGOSO Address: [address] Mobile Relation: Step parent Current Care [...] Yes ; Prescription Coverage: Yes Preferred Pharmacy: [facility] [place] - [address] [facility] [address] [place] [address] [place] Status: Patient is a : No Primary Care Provider confirmed: MARVA Gordon [phone] Patient/Caregiver Goals of Treatment: Potential Needs for Transition of Care: none (pending hospital course. [facility]aily does not anticipate needs at at this time) Agency Referrals: Not Applicable Transportation: no concerns Transportation Anticipated: family or friend will provide Concerns to be Addressed: no discharge needs identified Assessment: Patient is admitted to neurosurgery service for Shunt malfunction [T85.298A] Nonintractable headache, unspecified chronicity pattern, unspecified headache type [R51.9]. Construction Tech called patient's guardian/mother (Tracy-macrina) to obtain all [...] of care as indicated. Macie Menezes RN, Pager-[phone] * Consult Note - Sumit Hill, [facility] - 09/24/2023 1:28 AM EDT [...] Sources used to compile medication list: [x] Yuppics medication list [x] SureScripts/Dispense Report [] PCP/Specialist [...] 40 mg (not 10 mg) Additional Notes: [facility]oto med list (only pharmacy to fill medications) [...] starting 09/23/2023 until 09/23/2023 Type and screen ([facility]) Blood Bank Routine One Time for 1 Occurrences starting 09/24/2023 until 09/24/2023 documented as of this encounter Procedures Procedure Name Priority Date/Time Associated Diagnosis Comments BASIC METABOLIC PANEL Routine 10/10/2023 4:16 AM EDT XR SHUNT SERIES Routine 10/09/2023 8:[address] HEAD WO CONTRAST (GENERIC) Routine 10/09/2023 6:39 PM EDT STEREOTACTIC COMPUTER-ASSTD NAVIGATIONAL CRANIAL INTRADURAL Routine 10/09/2023 7:15 AM EDT VENTRICULO-PERITONEAL,-PLEU RAL,-OTHER SHUNT Routine 10/09/2023 7:15 AM EDT ABORH RECHECK (PATIENT HISTORY FOUND) Routine 10/09/2023 6:50 AM EDT TYPE AND SCREEN ([facility]) Routine 10/09/2023 6:50 AM EDT HC [...] CELL COUNT Routine 09/30/2023 1:19 PM EDT DIRT SHOVELER SHUNT CULTURE Routine 09/30/2023 1:19 PM EDT [...] LEVEL CSF Routine 09/25/2023 12:25 PM EDT DIRT SHOVELER SHUNT CULTURE Routine 09/25/2023 12:24 PM EDT [...] CULTURE Routine 09/24/2023 10:30 AM EDT Ventriculo-Cisternostomy (06704) 09/24/2023 8:42 AM EDT removal of right ventriculopleural shunt Twist Hole Skull, Implant Cath/Device ([id number]) 09/24/2023 8:42 AM EDT removal of right ventriculopleural shunt Stereotactic Cptr Asstd Px Cranial, Intradural ([id number]) 09/24/2023 8:42 AM EDT removal of right ventriculopleural shunt Removal, Complete Csf Shunt, W/O Replace ([id number]) 09/24/2023 8:42 AM EDT removal of right [...] DESC 1 STAT 09/23/2023 11:30 PM EDT DIRT SHOVELER SHUNT CULTURE STAT 09/23/2023 11:30 PM EDT [...] wo Contrast (Generic) (11/12/2023 3:41 PM EDT) [employer] WORKSTATION ID [id number] RAD Anatomical Region Laterality Modality Head Computed Tomogra phy Impressions 11/12/2023 4:18 PM EDT Interval reduced caliber of the supratentorial ventricles. Thank you for letting us participate in the care of this patient. ??If you are a health care provider and have any questions regarding this report, please contact the number below. ??For patients who have questions please contact the health personal caregiver that requested your imaging first. ? Electronically signed by: HAIM Song [facility] ([phone]), at 11/12/2023 4:18 PM Narrative 11/12/2023 4:18 PM EDT EXAMINATION: CT [...] patients who have questions please contactthe health personal caregiver that requested your imaging first. Rhoda Jimenez MD IMG CT ORDERABLES * (ABNORMAL) Basic Metabolic Panel (10/10/2023 4:16 AM EDT) Glucose 121 65 - 199 mg/dL 10/10/2023 4:[address] [facility] Comment:Glucose Concentratio n >=200 mg/dL plus symptoms is consistent with Diabetes Mellitus. Blood Urea Nitrogen 15 10 - 20 mg/dL 10/10/2023 4:[address] [facility] Creatinine 1.12 0.80 - 1.50 mg/dL 10/10/2023 4:[address] [facility] Sodium 137 135 - 145 mMol/L 10/10/2023 4:[address] [facility] Potassium 4.4 3.5 - 5.0 mMol/L 10/10/2023 4:[address] [facility] Chloride 104 98 - 107 mMol/L 10/10/2023 4:[address] [facility] Carbon Dioxide 19(L) 22 - 31 mMol/L 10/10/2023 4:[address] [facility] Anion Gap 14 5 - 15 mMol/L 10/10/2023 4:[address] [facility] Calcium 9.3 8.5 - 10.5 mg/dL 10/10/2023 4:[address] [facility] Est Glomerular Filtration Rate - Male 80 mL/min/1. 73 m?? 10/10/2023 4:[address] [facility] Comment: This patient's estimated GFR [...] AM EDT Rhoda Jimenez MD CHEMISTRY ORDERABLES [facility] [place] [address] * XR Shunt Series (10/09/2023 8:42 PM EDT) WORKSTATION ID [id number] RAD Anatomical Region Laterality Modality N/A Digital [...] who have questions please contact the health personal caregiver that requested your imaging first. ? Narrative [...] bowel. Bilateral lungs are clear. Procedure Note SinAria MD - 10/10/2023 EXAMINATION: XR SHUNT SERIES [...] patients who have questions please contactthe health personal caregiver that requested your imaging first. Rhoda Jimenez MD IMG DX ORDERABLES * CT Head wo Contrast (Generic) (10/09/2023 6:39 PM EDT) WORKSTATION ID [id number] RAD Anatomical Region Laterality Modality Head Computed [...] who have questions please contact the health personal caregiver that requested your imaging first. ? Narrative [...] medial right mastoid air cells. The left safety and occupational health manager cells are clear. The middle ears are [...] patients who have questions please contactthe health personal caregiver that requested your imaging first. Rhoda Jimenez MD IMG CT ORDERABLES * ABORH RECHECK (PATIENT HISTORY FOUND) (10/09/2023 6:50 AM EDT) ABORH Recheck Progress Complete 10/09/2023 9:01 AM EDT [facility] Blood VENOUS BLOOD SPECIMEN / Unknown IP Care Team Draw / Unknown 10/09/2023 6:50 AM EDT 10/09/2023 7:09 AM EDT Rhoda Jimenez MD BLOOD BANK LAB ORDER [facility] [place] [address] * Type and screen ([facility]/DULCE [facility]) (10/09/2023 6:50 AM EDT) Pathologist [facility] ABORH Type A POSITIVE 10/09/2023 8:52 AM EDT [facility] PATIENT HISTORY Found 10/09/2023 8:52 AM EDT [facility] Expires at [id number] on: 10/12/2023 10/09/2023 8:52 AM EDT [facility] ANTIBODY SCREEN AUTOMATED Negative 10/09/2023 8:52 AM EDT [facility] T&S only valid at [facility] 10/09/2023 8:52 AM EDT [facility] Blood VENOUS BLOOD SPECIMEN / Unknown IP Care Team Draw / Unknown 10/09/2023 6:50 AM EDT 10/09/2023 7:09 AM EDT Narrative [facility] - 10/09/2023 8:52 AM EDT This Type and Screen result is only valid at the [facility] Rhoda Jimenez MD BLOOD BANK LAB ORDER [facility] [place] [address] * (ABNORMAL) CBC (with Diff) (10/09/2023 5:13 AM EDT) [facility] White Blood Cell 11.19(H) 4.00 - 9.50 x10(3)/mc L 10/09/2023 5:44 AM EDT [facility] Red Blood Cell 5.26 4.58 - 5.54 x10(6)/mc L 10/09/2023 5:44 AM EDT [facility] Hemoglobin 15.2 13.7 - 16.5 g/dL 10/09/2023 5:[address] [facility] Hematocrit 44.8 40.5 - 48.5 % 10/09/2023 5:[address] [facility] Mean Cell Volume 85.2 82.9 - 93.1 fL 10/09/2023 5:[address] [facility] Mean Cell Hemoglobin 28.9 27.5 - 32.1 pg 10/09/2023 5:[address] [facility] Mean Cell Hemoglobin Concentration 33.9 32.0 - 35.7 g/dL 10/09/2023 5:[address] [facility] Platelet 265 145 - 357 x10(3)/mc L 10/09/2023 5:[address] [facility] Mean Platelet Volume 8.6 7.6 - 12.9 fL 10/09/2023 5:[address] [facility] RDW Standard Deviation 40.2 36.0 - 45.0 fL 10/09/2023 5:[address] [facility] RDW coefficient of variation 12.9 11.4 - 13.8 % 10/09/2023 5:[address] [facility] NRBC% auto 0.0 % 10/09/2023 5:[address] [facility] NRBC Absolute 0.00 0.00 - 0.00 x10(3)/mc L 10/09/2023 5:[address] [facility] Neutrophil % 57.0 % 10/09/2023 5:[address] [facility] Neutrophil Absolute (ANC) - Automated 6.38(H) 1.70 - 6.10 x10(3)/mc L 10/09/2023 5:[address] [facility] Lymph % 34.6 % 10/09/2023 5:[address] [facility] Lymph Absolute 3.87(H) 0.90 - 3.20 x10(3)/mc L 10/09/2023 5:[address] [facility] Monocyte % 5.0 % 10/09/2023 5:44 AM EDT [facility] Monocyte Absolute 0.56 0.30 - 0.90 x10(3)/mc L 10/09/2023 5:44 AM EDT [facility] Eos % 2.6 % 10/09/2023 5:44 AM EDT [facility] Eos Absolute 0.29 0.00 - 0.40 x10(3)/mc L 10/09/2023 5:44 AM EDT [facility] Basophil % 0.5 % 10/09/2023 5:44 AM EDT [facility] Baso Absolute 0.06 0.00 - 0.10 x10(3)/mc L 10/09/2023 5:44 AM EDT [facility] Immature Gran % 0.3 % 5:44 AM EDT [facility] Immature Gran Absolute 0.03 0.00 - 0.04 x10(3)/mc L 10/09/2023 5:44 AM EDT [facility] Blood VENOUS BLOOD SPECIMEN / Unknown IP Care Team Draw / Unknown 10/09/2023 5:13 AM EDT 10/09/2023 5:23 AM EDT Rhoda Jimenez MD HEMATOLOGY ORDERABLE S [facility] [address] * (ABNORMAL) Basic Metabolic Panel (10/09/2023 5:13 AM EDT) Glucose 122 65 - 199 mg/dL 10/09/2023 6:04 AM EDT [facility] Comment:Glucose Concentratio n >=200 mg/dL plus symptoms is consistent with Diabetes Mellitus. Blood Urea Nitrogen 14 10 - 20 mg/dL 10/09/2023 6:04 AM EDT [facility] Creatinine 1.08 0.80 - 1.50 mg/dL 10/09/2023 6:04 AM EDT [facility] Sodium 136 135 - 145 mMol/L 10/09/2023 6:[address] [facility] Potassium 4.1 3.5 - 5.0 mMol/L 10/09/2023 6:[address] [facility] Chloride 105 98 - 107 mMol/L 10/09/2023 6:[address] [facility] Carbon Dioxide 18(L) 22 - 31 mMol/L 10/09/2023 6:[address] [facility] Anion Gap 13 5 - 15 mMol/L 10/09/2023 6:[address] [facility] Calcium 9.0 8.5 - 10.5 mg/dL 10/09/2023 6:[address] [facility] Est Glomerular Filtration Rate - Male 84 mL/min/1. 73 m?? 10/09/2023 6:[address] [facility] Comment: This patient's estimated GFR [...] AM EDT Rhoda Jimenez MD CHEMISTRY ORDERABLES [facility] [address] * APTT (10/09/2023 5:13 AM EDT) Partial Thromboplastin Time 29 25 - 37 sec 10/09/2023 5:46 AM EDT [facility] Comment: The PTT is NOT [...] MD HEMATOLOGY ORDERABLE S Performing Organization Address [facility]/ZIP Co de Phone Number [facility] [place] [address] * Prothrombin Time (10/09/2023 5:13 AM EDT) Prothrombin Time 11.6 9.4 - 12.5 sec 10/09/2023 5:46 AM EDT [facility] International Normalization Ratio 1.0 <=4.9 10/09/2023 5:46 AM EDT [facility] Comment: An INR < 2.0 [...] MD HEMATOLOGY ORDERABLE S Performing Organization Address [facility]/ZIP Co de Phone Number [facility] [place] [address] * Scan Doc: Implantable Devices (10/09/2023 12:00 AM EDT) Narrative 10/09/2023 12:00 AM EDT Ordered by an unspecified provider. Scanning Provider MEDIA MGR SCAN EXT O RDR/RSLT * CT Head wo Contrast (Generic) (10/08/2023 4:09 AM EDT) [employer] Signature WORKSTATION ID [id number] RAD Anatomical Region Laterality Modality Head Computed [...] who have questions please contact the health personal caregiver that requested your imaging first. ? Electronically signed by: HAIM Marquez [facility] ([phone]), at 10/08/2023 6:17 AM Narrative 10/08/2023 6:17 [...] patients who have questions please contactthe health personal caregiver that requested your imaging first. Rhoda Jimenez MD IMG CT ORDERABLES * (ABNORMAL) Basic Metabolic Panel (10/08/2023 1:15 AM EDT) Glucose 124 65 - 199 mg/dL 10/08/2023 1:[address] [facility] Comment:Glucose Concentratio n >=200 mg/dL plus symptoms is consistent with Diabetes Mellitus. Blood Urea Nitrogen 14 10 - 20 mg/dL 10/08/2023 1:[address] [facility] Creatinine 1.07 0.80 - 1.50 mg/dL 10/08/2023 1:[address] [facility] Sodium 135 135 - 145 mMol/L 10/08/2023 1:[address] [facility] Potassium 4.0 3.5 - 5.0 mMol/L 10/08/2023 1:[facility] Chloride 103 98 - 107 mMol/L 10/08/2023 1:[address] [facility] Carbon Dioxide 18(L) 22 - 31 mMol/L 10/08/2023 1:55 AM EDT [facility] Anion Gap 14 5 - 15 mMol/L 10/08/2023 1:55 AM EDT [facility] Calcium 9.1 8.5 - 10.5 mg/dL 10/08/2023 1:55 AM EDT [facility] Est Glomerular Filtration Rate - Male 85 mL/min/1. 73 m?? 10/08/2023 1:55 AM EDT [facility] Comment: This patient's estimated GFR [...] AM EDT Rhoda Jimenez MD CHEMISTRY ORDERABLES [facility] [address] * (ABNORMAL) CBC (with Diff) (10/07/2023 12:15 AM EDT) White Blood Cell 12.73(H) 4.00 - 9.50 x10(3)/mc L 10/07/2023 12:40 AM EDT [facility] Red Blood Cell 4.89 4.58 - 5.54 x10(6)/mc L 10/07/2023 12:40 AM EDT [facility] Hemoglobin 14.4 13.7 - 16.5 g/dL 10/07/2023 12:40 AM EDT [facility] Hematocrit 42.1 40.5 - 48.5 % 10/07/2023 12:[address] [facility] Mean Cell Volume 86.1 82.9 - 93.1 fL 10/07/2023 12:[address] [facility] Mean Cell Hemoglobin 29.4 27.5 - 32.1 pg 10/07/2023 12:[address] [facility] Mean Cell Hemoglobin Concentration 34.2 32.0 - 35.7 g/dL 10/07/2023 12:[address] [facility] Platelet 250 145 - 357 x10(3)/mc L 10/07/2023 12:[address] [facility] Mean Platelet Volume 8.8 7.6 - 12.9 fL 10/07/2023 12:[address] [facility] RDW Standard Deviation 40.5 36.0 - 45.0 fL 10/07/2023 12:[address] [facility] RDW coefficient of variation 12.9 11.4 - 13.8 % 10/07/2023 12:[address] [facility] NRBC% auto 0.0 % 10/07/2023 12:[address] [facility] NRBC Absolute 0.00 0.00 - 0.00 x10(3)/mc L 10/07/2023 12:[address] [facility] Neutrophil % 61.9 % 10/07/2023 12:[address] [facility] Neutrophil Absolute (ANC) - Automated 7.87(H) 1.70 - 6.10 x10(3)/mc L 10/07/2023 12:[address] [facility] Lymph % 30.5 % 10/07/2023 12:[address] [facility] Lymph Absolute 3.88(H) 0.90 - 3.20 x10(3)/mc L 10/07/2023 12:[address] [facility] Monocyte % 4.9 % 10/07/2023 12:[address] [facility] Monocyte Absolute 0.63 0.30 - 0.90 x10(3)/mc L 10/07/2023 12:40 AM EDT [facility] Eos % 1.8 % 10/07/2023 12:40 AM EDT [facility] Eos Absolute 0.23 0.00 - 0.40 x10(3)/mc L 10/07/2023 12:40 AM EDT [facility] Basophil % 0.6 % 10/07/2023 12:40 AM EDT [facility] Baso Absolute 0.08 0.00 - 0.10 x10(3)/mc L 10/07/2023 12:40 AM EDT [facility] Immature Gran % 0.3 % 12:40 AM EDT [facility] Immature Gran Absolute 0.04 0.00 - 0.04 x10(3)/mc L 10/07/2023 12:40 AM EDT [facility] Blood VENOUS BLOOD SPECIMEN / Unknown IP Care Team Draw / Unknown 10/07/2023 12:15 AM EDT 10/07/2023 12:32 AM EDT Rhoda Jimenez MD HEMATOLOGY ORDERABLE S [facility] [address] * (ABNORMAL) Basic Metabolic Panel (10/07/2023 12:15 AM EDT) Glucose 121 65 - 199 mg/dL 10/07/2023 1:04 AM EDT [facility] Comment:Glucose Concentratio n >=200 mg/dL plus symptoms is consistent with Diabetes Mellitus. Blood Urea Nitrogen 15 10 - 20 mg/dL 10/07/2023 1:04 AM EDT [facility] Creatinine 1.16 0.80 - 1.50 mg/dL 10/07/2023 1:04 AM EDT [facility] Sodium 138 135 - 145 mMol/L 10/07/2023 1:04 AM EDT [facility] Potassium 4.0 3.5 - 5.0 mMol/L 10/07/2023 1:04 AM EDT [facility] Chloride 106 98 - 107 mMol/L 10/07/2023 1:04 AM EDT [facility] Carbon Dioxide 18(L) 22 - 31 mMol/L 10/07/2023 1:04 AM EDT [facility] Anion Gap 14 5 - 15 mMol/L 10/07/2023 1:04 AM EDT [facility] Calcium 9.4 8.5 - 10.5 mg/dL 10/07/2023 1:04 AM EDT [facility] Est Glomerular Filtration Rate - Male 77 mL/min/1. 73 m?? 10/07/2023 1:04 AM EDT [facility] Comment: This patient's estimated GFR [...] AM EDT Rhoda Jimenez MD CHEMISTRY ORDERABLES [facility] [place] [address] * Sedimentation rate (10/06/2023 8:46 AM EDT) Sedimentation Rate Automated 36 2 - 37 mm/hr 10/06/2023 10:51 AM EDT [facility] Blood VENOUS BLOOD SPECIMEN / Unknown IP Care Team Draw / Unknown 10/06/2023 8:46 AM EDT 10/06/2023 9:00 AM EDT Rhoda Jimenez MD HEMATOLOGY ORDERABLE S [facility] [place] [address] * (ABNORMAL) Basic Metabolic Panel (10/06/2023 8:46 AM EDT) Glucose 164 65 - 199 mg/dL 10/06/2023 9:32 AM EDT [facility] Comment:Glucose Concentratio n >=200 mg/dL plus symptoms is consistent with Diabetes Mellitus. Blood Urea Nitrogen 14 10 - 20 mg/dL 10/06/2023 9:[address] [facility] Creatinine 1.08 0.80 - 1.50 mg/dL 10/06/2023 9:[address] [facility] Sodium 137 135 - 145 mMol/L 10/06/2023 9:[address] [facility] Potassium 3.6 3.5 - 5.0 mMol/L 10/06/2023 9:[address] [facility] Chloride 104 98 - 107 mMol/L 10/06/2023 9:[address] [facility] Carbon Dioxide 19(L) 22 - 31 mMol/L 10/06/2023 9:[address] [facility] Anion Gap 14 5 - 15 mMol/L 10/06/2023 9:[address] [facility] Calcium 9.6 8.5 - 10.5 mg/dL 10/06/2023 9:[address] [facility] Est Glomerular Filtration Rate - Male 84 mL/min/1. 73 m?? 10/06/2023 9:[address] [facility] Comment: This patient's estimated GFR [...] Jimenez MD CHEMISTRY ORDERABLES Performing Organization Address City/[facility]/ZIP Co de Phone Number [facility] [address] * (ABNORMAL) CRP, acute inflammation (10/05/2023 8:16 PM EDT) C-Reactive Protein 11.4(H) <=4.9 mg/L 10/06/2023 7:59 AM EDT [facility] Blood VENOUS BLOOD SPECIMEN / Unknown IP Care Team Draw / Unknown 10/05/2023 8:16 PM EDT 10/05/2023 8:22 PM EDT Rhoda Jimenez MD CHEMISTRY ORDERABLES Performing Organization Address City/[facility]/ZIP Co de Phone Number [facility] [place] [address] * (ABNORMAL) Basic Metabolic Panel (10/05/2023 8:16 PM EDT) Glucose 140 65 - 199 mg/dL 10/05/2023 9:38 PM EDT [facility] Comment:Glucose Concentratio n >=200 mg/dL plus symptoms is consistent with Diabetes Mellitus. Blood Urea Nitrogen 15 10 - 20 mg/dL 10/05/2023 9:38 PM EDT [facility] Creatinine 1.10 0.80 - 1.50 mg/dL 10/05/2023 9:38 PM EDT [facility] Sodium 139 135 - 145 mMol/L 10/05/2023 9:38 PM EDT [facility] Potassium 3.4(L) 3.5 - 5.0 mMol/L 10/05/2023 9:38 PM EDT [facility] Chloride 105 98 - 107 mMol/L 10/05/2023 9:38 PM EDT [facility] Carbon Dioxide 19(L) 22 - 31 mMol/L 10/05/2023 9:38 PM EDT [facility] Anion Gap 15 5 - 15 mMol/L 10/05/2023 9:38 PM EDT [facility] Calcium 9.4 8.5 - 10.5 mg/dL 10/05/2023 9:38 PM EDT [facility] Est Glomerular Filtration Rate - Male 82 mL/min/1. 73 m?? 10/05/2023 9:38 PM EDT [facility] Comment: This patient's estimated GFR [...] PM EDT Rhoda Jimenez MD CHEMISTRY ORDERABLES [facility] [address] * XR Shunt Series (10/05/2023 9:43 AM EDT) WORKSTATION ID [id number] RAD Anatomical Region Laterality Modality N/A Digital Radiogra phy Impressions 10/05/2023 10:15 AM EDT New Right EVD placement. Thank you for letting us participate in the care of this patient. ??If you are a health care provider and have any questions regarding this report, please contact the number below. ??For patients who have questions please contact the health personal caregiver that requested your imaging first. ? Narrative [...] patients who have questions please contactthe health personal caregiver that requested your imaging first. Rhoda Jimenez MD IMG DX ORDERABLES * (ABNORMAL) Basic Metabolic Panel (10/05/2023 8:17 AM EDT) Glucose 160 65 - 199 mg/dL 10/05/2023 8:[address] [facility] Comment:Glucose Concentratio n >=200 mg/dL plus symptoms is consistent with Diabetes Mellitus. Blood Urea Nitrogen 16 10 - 20 mg/dL 10/05/2023 8:[address] [facility] Creatinine 1.02 0.80 - 1.50 mg/dL 10/05/2023 8:[address] [facility] Sodium 135 135 - 145 mMol/L 10/05/2023 8:[address] [facility] Potassium 3.5 3.5 - 5.0 mMol/L 10/05/2023 8:[address] [facility] Chloride 101 98 - 107 mMol/L 10/05/2023 8:[address] [facility] Carbon Dioxide 19(L) 22 - 31 mMol/L 10/05/2023 8:[address] [facility] Anion Gap 15 5 - 15 mMol/L 10/05/2023 8:[address] [facility] Calcium 9.7 8.5 - 10.5 mg/dL 10/05/2023 8:[address] [facility] Est Glomerular Filtration Rate - Male 90 mL/min/1. 73 m?? 10/05/2023 8:[address] [facility] Comment: This patient's estimated GFR [...] Jimenez MD CHEMISTRY ORDERABLES Performing Organization Address City/[facility]/ZIP Co de Phone Number [facility] [place] [place] [address] * Vancomycin, trough (10/05/2023 4:30 AM EDT) Pathologist [facility] Vancomycin, Trough 17.4 10.0 - 20.0 mg/L 10/05/2023 9:40 AM EDT [facility] Comment: Varies according to infection source. Blood VENOUS BLOOD SPECIMEN / Unknown IP Care Team Draw / Unknown 10/05/2023 4:30 AM EDT 10/05/2023 7:28 AM EDT Rhoda Jimenez MD CHEMISTRY ORDERABLES Performing Organization Address City/[facility]/ZIP Co de Phone Number [facility] [place] [address] * (ABNORMAL) CBC (with Diff) (10/05/2023 12:25 AM EDT) White Blood Cell 12.42(H) 4.00 - 9.50 x10(3)/mc L 10/05/2023 12:56 AM EDT [facility] Red Blood Cell 5.12 4.58 - 5.54 x10(6)/mc L 10/05/2023 12:56 AM EDT [facility] Hemoglobin 15.0 13.7 - 16.5 g/dL 10/05/2023 12:[address] [facility] Hematocrit 43.5 40.5 - 48.5 % 10/05/2023 12:[address] [facility] Mean Cell Volume 85.0 82.9 - 93.1 fL 10/05/2023 12:[address] [facility] Mean Cell Hemoglobin 29.3 27.5 - 32.1 pg 10/05/2023 12:[address] [facility] Mean Cell Hemoglobin Concentration 34.5 32.0 - 35.7 g/dL 10/05/2023 12:[address] [facility] Platelet 249 145 - 357 x10(3)/mc L 10/05/2023 12:[address] [facility] Mean Platelet Volume 8.8 7.6 - 12.9 fL 10/05/2023 12:[address] [facility] RDW Standard Deviation 39.7 36.0 - 45.0 fL 10/05/2023 12:[address] [facility] RDW coefficient of variation 12.8 11.4 - 13.8 % 10/05/2023 12:[address] [facility] NRBC% auto 0.0 % 10/05/2023 12:[address] [facility] NRBC Absolute 0.00 0.00 - 0.00 x10(3)/mc L 10/05/2023 12:[address] [facility] Neutrophil % 59.9 % 10/05/2023 12:[address] [facility] Neutrophil Absolute (ANC) - Automated 7.44(H) 1.70 - 6.10 x10(3)/mc L 10/05/2023 12:[address] [facility] Lymph % 32.0 % 10/05/2023 12:[address] [facility] Lymph Absolute 3.97(H) 0.90 - 3.20 x10(3)/mc L 10/05/2023 12:56 AM EDT [facility] Monocyte % 5.9 % 10/05/2023 12:56 AM EDT [facility] Monocyte Absolute 0.73 0.30 - 0.90 x10(3)/mc L 10/05/2023 12:56 AM EDT [facility] Eos % 1.5 % 10/05/2023 12:56 AM EDT [facility] Eos Absolute 0.19 0.00 - 0.40 x10(3)/mc L 10/05/2023 12:56 AM EDT [facility] Basophil % 0.5 % 10/05/2023 12:56 AM EDT [facility] Baso Absolute 0.06 0.00 - 0.10 x10(3)/mc L 10/05/2023 12:56 AM EDT [facility] Immature Gran % 0.2 % 12:56 AM EDT [facility] Immature Gran Absolute 0.03 0.00 - 0.04 x10(3)/mc L 10/05/2023 12:56 AM EDT [facility] Blood VENOUS BLOOD SPECIMEN / Unknown IP Care Team Draw / Unknown 10/05/2023 12:25 AM EDT 10/05/2023 12:49 AM EDT Rhoda Jimenez MD HEMATOLOGY ORDERABLE S [facility] [place] [address] * (ABNORMAL) Basic Metabolic Panel (10/04/2023 8:16 PM EDT) Glucose 152 65 - 199 mg/dL 10/04/2023 9:11 PM EDT [facility] Comment:Glucose Concentratio n >=200 mg/dL plus symptoms is consistent with Diabetes Mellitus. Blood Urea Nitrogen 18 10 - 20 mg/dL 10/04/2023 9:11 PM EDT [facility] Creatinine 1.02 0.80 - 1.50 mg/dL 10/04/2023 9:11 PM EDT [facility] Sodium 135 135 - 145 mMol/L 10/04/2023 9:11 PM EDT [facility] Potassium 3.3(L) 3.5 - 5.0 mMol/L 10/04/2023 9:11 PM EDT [facility] Chloride 101 98 - 107 mMol/L 10/04/2023 9:11 PM EDT [facility] Carbon Dioxide 19(L) 22 - 31 mMol/L 10/04/2023 9:11 PM EDT [facility] Anion Gap 15 5 - 15 mMol/L 10/04/2023 9:11 PM EDT [facility] Calcium 9.6 8.5 - 10.5 mg/dL 10/04/2023 9:[facility] Est Glomerular Filtration Rate - Male 90 mL/min/1. 73 m?? 10/04/2023 9:11 PM EDT [facility] Comment: This patient's estimated GFR [...] PM EDT Rhoda Jimenez MD CHEMISTRY ORDERABLES [facility] [place] [address] * Sodium, urine, random (10/04/2023 9:34 AM EDT) Sodium, Urine 22 mMol/L 10/04/2023 7:59 PM EDT [facility] Urine URINE SPECIMEN / Unknown Non Blood Collection / Unknown 10/04/2023 9:34 AM EDT 10/04/2023 9:43 AM EDT Rhoda Jimenez MD URINE ORDERABLES Performing Organization Address City/[facility]/ZIP Co de Phone Number [facility] [place] [address] * Osmolality, urine, random (10/04/2023 9:34 AM EDT) Osmolality, Urine 798 50 - 1,200 mOsm/kg 10/04/2023 1:44 PM EDT [facility] Urine URINE SPECIMEN / Unknown Non Blood Collection / Unknown 10/04/2023 9:34 AM EDT 10/04/2023 9:43 AM EDT Rhoda Jimenez MD URINE ORDERABLES Performing Organization Address City/[facility]/ZIP Co de Phone Number [facility] [place] [address] * Creatinine, urine, random (10/04/2023 9:34 AM EDT) Creatinine, Urine 230 mg/dL 10/04/2023 10:12 AM EDT [facility] Urine URINE SPECIMEN / Unknown Non Blood Collection / Unknown 10/04/2023 9:34 AM EDT 10/04/2023 9:43 AM EDT Rhoda Jimenez MD URINE ORDERABLES Performing Organization Address City/[facility]/ZIP Co de Phone Number [facility] [place] [address] * CT Head wo Contrast (Generic) (10/04/2023 5:05 AM EDT) WORKSTATION ID [id number] RAD Anatomical Region Laterality Modality Head Computed [...] who have questions please contact the health personal caregiver that requested your imaging first. ? Narrative 10/04/2023 9:13 AM EDT EXAMINATION: CT [...] patients who have questions please contactthe health personal caregiver that requested your imaging first. Rhoda Jimenez MD IMG CT ORDERABLES * (ABNORMAL) Basic Metabolic Panel (10/03/2023 10:49 PM EDT) Glucose 112 65 - 199 mg/dL 10/04/2023 6:[address] [facility] Comment:Glucose Concentratio n >=200 mg/dL plus symptoms is consistent with Diabetes Mellitus. Blood Urea Nitrogen 17 10 - 20 mg/dL 10/04/2023 6:39 PM EDT [facility] Creatinine 1.09 0.80 - 1.50 mg/dL 10/04/2023 6:39 [facility] Sodium 134(L) 135 - 145 mMol/L 10/04/2023 6:39 PM [facility] Potassium 4.2 3.5 - 5.0 mMol/L 10/04/2023 6:39 PM [facility] Chloride 100 98 - 107 mMol/L 10/04/2023 6:[address] [facility] Carbon Dioxide 15(L) 22 - 31 mMol/L 10/04/2023 6:39 PM EDT [facility] Anion Gap 19(H) 5 - 15 mMol/L 10/04/2023 6:39 PM EDT [facility] Calcium 9.6 8.5 - 10.5 mg/dL 10/04/2023 6:39 PM EDT [facility] Est Glomerular Filtration Rate - Male 83 mL/min/1. 73 m?? 10/04/2023 6:39 PM EDT [facility] Comment: This patient's estimated GFR [...] PM EDT Rhoda Jimenez MD CHEMISTRY ORDERABLES [facility] [place] [address] * Osmolality (10/03/2023 10:49 PM EDT) Osmolality 285 275 - 295 mOsm/kg 10/04/2023 6:33 AM EDT [facility] Blood VENOUS BLOOD SPECIMEN / Unknown IP Care Team Draw / Unknown 10/03/2023 10:49 PM EDT 10/03/2023 10:55 PM EDT Rhoda Jimenez MD CHEMISTRY ORDERABLES [facility] [place] [address] * Potassium (10/03/2023 10:49 PM EDT) Potassium 3.8 3.5 - 5.0 mMol/L 10/03/2023 11:18 PM EDT [facility] Blood VENOUS BLOOD SPECIMEN / Unknown IP Care Team Draw / Unknown 10/03/2023 10:49 PM EDT 10/03/2023 10:55 PM EDT Rhoda Jimenez MD CHEMISTRY ORDERABLES [facility] [place] [place] [address] * (ABNORMAL) Basic Metabolic Panel (10/03/2023 8:53 PM EDT) Glucose 132 65 - 199 mg/dL 10/03/2023 10:15 PM EDT [facility] Comment:Glucose Concentratio n >=200 mg/dL plus symptoms is consistent with Diabetes Mellitus. Blood Urea Nitrogen 16 10 - 20 mg/dL 10/03/2023 10:15 PM EDT [facility] Creatinine 0.99 0.80 - 1.50 mg/dL 10/03/2023 10:15 PM EDT [facility] Sodium 131(L) 135 - 145 mMol/L 10/03/2023 10:15 PM EDT [facility] Potassium 10/03/2023 10:15 PM EDT [facility] Comment:Unable to report due to hemolysis. Chloride 100 98 - 107 mMol/L 10/03/2023 10:15 PM EDT [facility] Carbon Dioxide 17(L) 22 - 31 mMol/L 10/03/2023 10:15 PM EDT [facility] Anion Gap 14 5 - 15 mMol/L 10/03/2023 10:15 PM EDT [facility] Calcium 9.0 8.5 - 10.5 mg/dL 10/03/2023 10:15 PM EDT [facility] Est Glomerular Filtration Rate - Male 93 mL/min/1. 73 m?? 10/03/2023 10:15 PM EDT [facility] Comment: This patient's estimated GFR [...] Jimenez MD CHEMISTRY ORDERABLES Performing Organization Address City/State/[facility] Co de Phone Number [facility] [place] [address] * (ABNORMAL) CBC (with Diff) (10/03/2023 4:13 AM EDT) White Blood Cell 13.41(H) 4.00 - 9.50 x10(3)/mc L 10/03/2023 4:23 AM EDT [facility] Red Blood Cell 5.55(H) 4.58 - 5.54 x10(6)/mc L 10/03/2023 4:23 AM EDT [facility] Hemoglobin 16.3 13.7 - 16.5 g/dL 10/03/2023 4:23 [facility] Hematocrit 47.3 40.5 - 48.5 % 10/03/2023 4:23 [facility] Mean Cell Volume 85.2 82.9 - 93.1 fL 10/03/2023 4:23 AM EDT [facility] Mean Cell Hemoglobin 29.4 27.5 - 32.1 pg 10/03/2023 4:[address] [facility] Mean Cell Hemoglobin Concentration 34.5 32.0 - 35.7 g/dL 10/03/2023 4:[address] [facility] Platelet 239 145 - 357 x10(3)/mc L 10/03/2023 4:[address] [facility] Mean Platelet Volume 8.5 7.6 - 12.9 fL 10/03/2023 4:[address] [facility] RDW Standard Deviation 40.3 36.0 - 45.0 fL 10/03/2023 4:[address] [facility] RDW coefficient of variation 12.9 11.4 - 13.8 % 10/03/2023 4:[address] [facility] NRBC% auto 0.0 % 10/03/2023 4:[address] [facility] NRBC Absolute 0.00 0.00 - 0.00 x10(3)/mc L 10/03/2023 4:[address] [facility] Neutrophil % 65.1 % 10/03/2023 4:[address] [facility] Neutrophil Absolute (ANC) - Automated 8.73(H) 1.70 - 6.10 x10(3)/mc L 10/03/2023 4:[address] [facility] Lymph % 26.1 % 10/03/2023 4:[address] [facility] Lymph Absolute 3.50(H) 0.90 - 3.20 x10(3)/mc L 10/03/2023 4:[address] [facility] Monocyte % 6.5 % 10/03/2023 4:[address] [facility] Monocyte Absolute 0.87 0.30 - 0.90 x10(3)/mc L 10/03/2023 4:[address] [facility] Eos % 1.4 % 10/03/2023 4:[address] [facility] Eos Absolute 0.19 0.00 - 0.40 x10(3)/mc L 10/03/2023 4:23 AM EDT [facility] Basophil % 0.5 % 10/03/2023 4:23 AM EDT [facility] Baso Absolute 0.07 0.00 - 0.10 x10(3)/mc L 10/03/2023 4:23 AM EDT [facility] Immature Gran % 0.4 % 4:23 AM EDT [facility] Immature Gran Absolute 0.05(H) 0.00 - 0.04 x10(3)/mc L 10/03/2023 4:23 AM EDT [facility] Blood VENOUS BLOOD SPECIMEN / Unknown IP Care Team Draw / Unknown 10/03/2023 4:13 AM EDT 10/03/2023 4:19 AM EDT Rhoda Jimenez MD HEMATOLOGY ORDERABLE S Performing Organization Address City/State/[facility] Co de Phone Number [facility] [address] * (ABNORMAL) Basic Metabolic Panel (10/03/2023 4:13 AM EDT) Glucose 115 65 - 199 mg/dL 10/03/2023 4:49 AM EDT [facility] Comment:Glucose Concentratio n >=200 mg/dL plus symptoms is consistent with Diabetes Mellitus. Blood Urea Nitrogen 18 10 - 20 mg/dL 10/03/2023 4:49 AM EDT [facility] Creatinine 1.07 0.80 - 1.50 mg/dL 10/03/2023 4:49 AM EDT [facility] Sodium 132(L) 135 - 145 mMol/L 10/03/2023 4:49 AM EDT [facility] Potassium 3.7 3.5 - 5.0 mMol/L 10/03/2023 4:49 AM EDT [facility] Chloride 101 98 - 107 mMol/L 10/03/2023 4:49 AM EDT [facility] Carbon Dioxide 19(L) 22 - 31 mMol/L 10/03/2023 4:49 AM EDT [facility] Anion Gap 12 5 - 15 mMol/L 10/03/2023 4:49 AM EDT [facility] Calcium 9.3 8.5 - 10.5 mg/dL 10/03/2023 4:49 AM EDT [facility] Est Glomerular Filtration Rate - Male 85 mL/min/1. 73 m?? 10/03/2023 4:49 AM EDT [facility] Comment: This patient's estimated GFR [...] AM EDT Rhoda Jimenez MD CHEMISTRY ORDERABLES [facility] [address] * CT Head wo Contrast (Generic) (10/02/2023 2:48 PM EDT) WORKSTATION ID [id number] DH RAD Anatomical Region Laterality Modality Head [...] who have questions please contact the health personal caregiver that requested your imaging first. ? Narrative [...] patients who have questions please contactthe health personal caregiver that requested your imaging first. Rhoda Jimenez MD IMG CT ORDERABLES * CT Head wo Contrast (Generic) (10/02/2023 10:16 AM EDT) WORKSTATION ID [id number] RAD Anatomical Region Laterality Modality Head Computed [...] who have questions please contact the health personal caregiver that requested your imaging first. ? Narrative [...] discussed the results with Roberto Dsouza on 410:28 AM and verified that the results were understood. Thank you for letting us participate in the care of this patient. If youare a health care provider and have any questions regarding this report,please contact the number below. For patients who have questions please contactthe health personal caregiver that requested your imaging first. Rhoda Jimenez MD IMG CT ORDERABLES * CT Head wo Contrast (Generic) (10/01/2023 4:34 PM EDT) WORKSTATION ID [id number] RAD Anatomical Region Laterality Modality Head Computed [...] who have questions please contact the health personal caregiver that requested your imaging first. ? Narrative [...] patients who have questions please contactthe health personal caregiver that requested your imaging first. Rhoda Jimenez MD IMG CT ORDERABLES * (ABNORMAL) CBC (with Diff) (10/01/2023 5:38 AM EDT) White Blood Cell 10.65(H) 4.00 - 9.50 x10(3)/mc L 10/01/2023 7:37 AM EDT [facility] Red Blood Cell 5.96(H) 4.58 - 5.54 x10(6)/mc L 10/01/2023 7:[address] [facility] Hemoglobin 17.4(H) 13.7 - 16.5 g/dL 10/01/2023 7:[address] [facility] Hematocrit 51.0(H) 40.5 - 48.5 % 10/01/2023 7:[address] [facility] Mean Cell Volume 85.6 82.9 - 93.1 fL 10/01/2023 7:[address] [facility] Mean Cell Hemoglobin 29.2 27.5 - 32.1 pg 10/01/2023 7:[address] [facility] Mean Cell Hemoglobin Concentration 34.1 32.0 - 35.7 g/dL 10/01/2023 7:[address] [facility] Platelet 252 145 - 357 x10(3)/mc L 10/01/2023 7:[address] [facility] Mean Platelet Volume 9.3 7.6 - 12.9 fL 10/01/2023 7:[address] [facility] RDW Standard Deviation 41.4 36.0 - 45.0 fL 10/01/2023 7:[address] [facility] RDW coefficient of variation 13.2 11.4 - 13.8 % 10/01/2023 7:[address] [facility] NRBC% auto 0.0 % 10/01/2023 7:[address] [facility] NRBC Absolute 0.00 0.00 - 0.00 x10(3)/mc L 10/01/2023 7:[address] [facility] Neutrophil % 55.2 % 10/01/2023 7:[address] [facility] Neutrophil Absolute (ANC) - Automated 5.89 1.70 - 6.10 x10(3)/mc L 10/01/2023 7:[address] [facility] Lymph % 35.8 % 10/01/2023 7:[address] [facility] Lymph Absolute 3.81(H) 0.90 - 3.20 x10(3)/mc L 10/01/2023 7:[address] [facility] Monocyte % 6.1 % 10/01/2023 7:[address] [facility] Monocyte Absolute 0.65 0.30 - 0.90 x10(3)/mc L 10/01/2023 7:[address] [facility] Eos % 2.0 % 10/01/2023 7:[address] [facility] Eos Absolute 0.21 0.00 - 0.40 x10(3)/mc L 10/01/2023 7:[address] [facility] Basophil % 0.6 % 10/01/2023 7:[address] [facility] Baso Absolute 0.06 0.00 - 0.10 x10(3)/mc L 10/01/2023 7:[address] [facility] Immature Gran % 0.3 % 7:[address] [facility] Immature Gran Absolute 0.03 0.00 - 0.04 x10(3)/mc L 10/01/2023 7:37 AM EDT [facility] Blood VENOUS BLOOD SPECIMEN / Unknown IP Care Team Draw / Unknown 10/01/2023 5:38 AM EDT 10/01/2023 7:29 AM EDT Rhoda Jimenez MD HEMATOLOGY ORDERABLE S [facility] [place] [address] * (ABNORMAL) Basic Metabolic Panel (10/01/2023 5:38 AM EDT) Glucose 103 65 - 199 mg/dL 10/01/2023 8:18 [facility] Comment:Glucose Concentratio n >=200 mg/dL plus symptoms is consistent with Diabetes Mellitus. Blood Urea Nitrogen 18 10 - 20 mg/dL 10/01/2023 8:[address] [facility] Creatinine 1.08 0.80 - 1.50 mg/dL 10/01/2023 8:[address] [facility] Sodium 134(L) 135 - 145 mMol/L 10/01/2023 8:[address] [facility] Potassium 3.9 3.5 - 5.0 mMol/L 10/01/2023 8:[address] [facility] Chloride 99 98 - 107 mMol/L 10/01/2023 8:[address] [facility] Carbon Dioxide 21(L) 22 - 31 mMol/L 10/01/2023 8:18 [facility] Anion Gap 14 5 - 15 mMol/L 10/01/2023 8:[address] [facility] Calcium 9.7 8.5 - 10.5 mg/dL 10/01/2023 8:[address] [facility] Est Glomerular Filtration Rate - Male 84 mL/min/1. 73 m?? 10/01/2023 8:[address] [facility] Comment: This patient's estimated GFR [...] Fasting Status No 10/01/2023 8:18 AM EDT [facility] Blood VENOUS BLOOD SPECIMEN / Unknown IP Care Team Draw / Unknown 10/01/2023 5:38 AM EDT 10/01/2023 7:29 AM EDT Rhoda Jimenez MD CHEMISTRY ORDERABLES Performing Organization Address [facility] Co de Phone Number [facility] [place] [address] * Pathology Fluid Review (09/30/2023 1:19 PM EDT) Pathology Interpretation Inflammatory cells including increased eosinophils seen 10/01/2023 12:27 PM EDT [facility] Cerebrospinal Fluid VENTRICULAR SHUNT / Unknown Non Blood Collection / Unknown 09/30/2023 1:19 PM EDT 09/30/2023 1:26 PM EDT Narrative [facility] - 10/01/2023 12:27 PM EDT [...] AND STOO LS ORDERABLES Performing Organization Address [facility]/ZIP Co de Phone Number [facility] [address] * DIRT SHOVELER Shunt Culture (09/30/2023 1:19 PM EDT) Pathologist [facility] Central Nervous System Shunt Culture No growth at 10 days 10/10/2023 10:01 AM EDT [facility] Gram Stain Cytocentrifuge Gram Stain performed 10/10/2023 10:01 AM EDT [facility] Gram Stain Neutrophils seen 10/10/19 10:01 AM EDT [facility] Gram Stain No microorganisms seen 10/10/2023 10:01 AM EDT [facility] Cerebrospinal Fluid CEREBROSPINAL FLUID SPECIMEN OBTAINED VIA VENTRICULOPERITONEAL SHUNT / Unknown Non Blood Collection / Unknown 09/30/2023 1:19 PM EDT 09/30/2023 1:46 PM EDT Rhoda Jimenez MD MICROBIOLOGY - GENER AL ORDERABLES [facility] [place] [address] * CSF Description (09/30/2023 1:19 PM EDT) Pathologist [facility] Tube Num CSF 2 09/30/2023 3:17 PM EDT [facility] Comment:Tube not collected. Tube Number CSF 1 09/30/2023 3:17 PM EDT [facility] Color, CSF Colorless 09/30/2023 3:17 PM EDT [facility] Appearance, CSF Clear 09/30/2023 3:17 PM EDT [facility] Total Vol, CSF 1.9 mL 09/30/2023 3:17 PM EDT [facility] Tube Num CSF 3 09/30/2023 3:17 PM EDT [facility] Comment:Tube not collected. Tube Num CSF 4 09/30/2023 3:17 PM EDT [facility] Comment:Tube not collected. Cerebrospinal Fluid VENTRICULAR SHUNT / Unknown Non Blood Collection / Unknown 09/30/2023 1:19 PM EDT 09/30/2023 1:26 PM EDT Rhoda Jimenez MD BODY FLUIDS AND STOO LS ORDERABLES Performing Organization Address City/[facility]/ZIP Co de Phone Number [facility] [place] [address] * Glucose Level CSF (09/30/2023 1:19 PM EDT) Glucose, CSF 86 mg/dL 10/23/2023 2:25 PM EDT [facility] Comment:At equilibrium, CSF glucose concentration is approximately 60-80% of plasma glucose. Cerebrospinal Fluid VENTRICULAR SHUNT / Unknown Non Blood Collection / Unknown 09/30/2023 1:19 PM EDT 09/30/2023 1:26 PM EDT Narrative [facility] - 10/23/2023 2:25 PM EDT The previously reported component Glucose Raw Result is no longer being reported. Rhoda Jimenez MD BODY FLUIDS AND STOO LS ORDERABLES Performing Organization Address [facility]/ZIP Co de Phone Number [facility] [place] [address] * Protein Level CSF (09/30/2023 1:19 PM EDT) [facility] Protein, CSF 16 mg/dL 09/30/2023 3:40 PM EDT [facility] Xanthochromati c, CSF Negative Negative 09/30/2023 3:40 PM EDT [facility] Cerebrospinal Fluid VENTRICULAR SHUNT / Unknown Non Blood Collection / Unknown 09/30/2023 1:19 PM EDT 09/30/2023 1:26 PM EDT Rhoda Jimenez MD BODY FLUIDS AND STOO LS ORDERABLES Performing Organization Address City/[facility]/ZIP Co de Phone Number [facility] [place] [address] * CSF Cell Count (09/30/2023 1:19 PM EDT) Pathologist [facility] AUTO NUC CSF CT 4 0 - 5 /mcl 3:17 PM EDT [facility] Comment:All body fluid resul ts should always be interpreted in light of the total clinical presentation of the patient, including clinical history, data from additional tests and other appropriate information. AUTO RBC CSF CT 209 /mcl 4 3:17 PM EDT [facility] Diff Performed CSF? Yes 09/30/2023 3:17 PM EDT [facility] Segmented Neutrophils, CSF 8 <=90 % 09/30/2023 3:17 PM EDT [facility] Lymphocyte, CSF 54 % 4 3:17 PM EDT [facility] Macrophage CSF 16 % 09/30/2023 3:17 PM EDT [facility] Eosinophil CSF 22 % 09/30/2023 3:17 PM EDT [facility] Total Cells, CSF 125 Cells 09/30/19 24 3:17 PM EDT [facility] Cerebrospinal Fluid VENTRICULAR SHUNT / Unknown Non Blood Collection / Unknown 09/30/2023 1:19 PM EDT 09/30/2023 1:26 PM EDT Rhoda Jimenez MD BODY FLUIDS AND STOO LS ORDERABLES [facility] [place] [address] * (ABNORMAL) CBC (with Diff) (09/29/2023 1:45 AM EDT) White Blood Cell 11.89(H) 4.00 - 9.50 x10(3)/mc L 09/29/2023 2:33 AM EDT [facility] Red Blood Cell 5.73(H) 4.58 - 5.54 x10(6)/mc L 09/29/2023 2:33 AM EDT [facility] Hemoglobin 16.6(H) 13.7 - 16.5 g/dL 09/29/2023 2:33 AM EDT [facility] Hematocrit 49.2(H) 40.5 - 48.5 % 09/29/2023 2:[address] [facility] Mean Cell Volume 85.9 82.9 - 93.1 fL 09/29/2023 2:[address] [facility] Mean Cell Hemoglobin 29.0 27.5 - 32.1 pg 09/29/2023 2:[address] [facility] Mean Cell Hemoglobin Concentration 33.7 32.0 - 35.7 g/dL 09/29/2023 2:[address] [facility] Platelet 266 145 - 357 x10(3)/mc L 09/29/2023 2:[address] [facility] Mean Platelet Volume 9.2 7.6 - 12.9 fL 09/29/2023 2:[address] [facility] RDW Standard Deviation 40.3 36.0 - 45.0 fL 09/29/2023 2:[address] [facility] RDW coefficient of variation 13.1 11.4 - 13.8 % 09/29/2023 2:[address] [facility] NRBC% auto 0.0 % 09/29/2023 2:[address] [facility] NRBC Absolute 0.00 0.00 - 0.00 x10(3)/mc L 09/29/2023 2:[address] [facility] Neutrophil % 54.0 % 09/29/2023 2:[address] [facility] Neutrophil Absolute (ANC) - Automated 6.42(H) 1.70 - 6.10 x10(3)/mc L 09/29/2023 2:[address] [facility] Lymph % 38.1 % 09/29/2023 2:[address] [facility] Lymph Absolute 4.53(H) 0.90 - 3.20 x10(3)/mc L 09/29/2023 2:[address] [facility] Monocyte % 4.1 % 09/29/2023 2:[address] [facility] Monocyte Absolute 0.49 0.30 - 0.90 x10(3)/mc L 09/29/2023 2:33 AM EDT [facility] Eos % 2.8 % 09/29/2023 2:33 AM EDT [facility] Eos Absolute 0.33 0.00 - 0.40 x10(3)/mc L 09/29/2023 2:33 AM EDT [facility] Basophil % 0.7 % 09/29/2023 2:33 AM EDT [facility] Baso Absolute 0.08 0.00 - 0.10 x10(3)/mc L 09/29/2023 2:33 AM EDT [facility] Immature Gran % 0.3 % 2:33 AM EDT [facility] Immature Gran Absolute 0.04 0.00 - 0.04 x10(3)/mc L 09/29/2023 2:33 AM EDT [facility] Blood VENOUS BLOOD SPECIMEN / Unknown IP Care Team Draw / Unknown 09/29/2023 1:45 AM EDT 09/29/2023 2:25 AM EDT Rhoda Jimenez MD HEMATOLOGY ORDERABLE S [facility] [place] [address] * (ABNORMAL) Basic Metabolic Panel (09/29/2023 1:45 AM EDT) Glucose 112 65 - 199 mg/dL 09/29/2023 3:12 AM EDT [facility] Comment:Glucose Concentratio n >=200 mg/dL plus symptoms is consistent with Diabetes Mellitus. Blood Urea Nitrogen 14 10 - 20 mg/dL 09/29/2023 3:12 AM EDT [facility] Creatinine 1.07 0.80 - 1.50 mg/dL 09/29/2023 3:12 AM EDT [facility] Sodium 137 135 - 145 mMol/L 09/29/2023 3:12 AM EDT [facility] Potassium 4.0 3.5 - 5.0 mMol/L 09/29/2023 3:12 AM EDT [facility] Chloride 102 98 - 107 mMol/L 09/29/2023 3:12 AM EDT [facility] Carbon Dioxide 21(L) 22 - 31 mMol/L 09/29/2023 3:12 AM EDT [facility] Anion Gap 14 5 - 15 mMol/L 09/29/2023 3:12 AM EDT [facility] Calcium 9.8 8.5 - 10.5 mg/dL 09/29/2023 [facility] Est Glomerular Filtration Rate - Male 85 mL/min/1. 73 m?? 09/29/2023 3:12 AM EDT [facility] Comment: This patient's estimated GFR [...] Fasting Status No 09/29/2023 3:12 AM EDT [facility] Blood VENOUS BLOOD SPECIMEN / Unknown IP Care Team Draw / Unknown 09/29/2023 1:45 AM EDT 09/29/2023 2:25 AM EDT Rhoda Jimenez MD CHEMISTRY ORDERABLES [facility] [place] [address] * Vancomycin Level, Random (09/29/2023 1:45 AM EDT) Vancomycin, Random 21.2 mg/L 2023 3:12 AM EDT [facility] Comment:This level is for de termination of the patient's vancomycin cmed-exqqw-lde-curve (AUC) value. Contact the inpatient pharmacy for interpretation. Blood VENOUS BLOOD SPECIMEN / Unknown IP Care Team Draw / Unknown 09/29/2023 1:45 AM EDT 09/29/2023 2:25 AM EDT Rhoda Jimenez MD CHEMISTRY ORDERABLES [facility] [place] [address] * (ABNORMAL) Basic Metabolic Panel (non-fasting) (09/27/2023 3:09 AM EDT) Glucose 105 65 - 199 mg/dL 09/27/2023 3:55 AM EDT [facility] Comment:Glucose Concentratio n >=200 mg/dL plus symptoms is consistent with Diabetes Mellitus. Blood Urea Nitrogen 13 10 - 20 mg/dL 09/27/2023 3:55 AM EDT [facility] Creatinine 1.07 0.80 - 1.50 mg/dL 09/27/2023 3:55 AM EDT [facility] Sodium 138 135 - 145 mMol/L 09/27/2023 3:[facility] Potassium 3.7 3.5 - 5.0 mMol/L 09/27/2023 3:55 AM EDT [facility] Chloride 105 98 - 107 mMol/L 09/27/2023 3:55 [facility] Carbon Dioxide 20(L) 22 - 31 mMol/L 09/27/2023 3:55 [facility] Anion Gap 13 5 - 15 mMol/L 09/27/2023 3:[address] [facility] Calcium 9.6 8.5 - 10.5 mg/dL 09/27/2023 3:55 [facility] Est Glomerular Filtration Rate - Male 85 mL/min/1. 73 m?? 09/27/2023 3:55 AM EDT [facility] Comment: This patient's estimated GFR [...] Fasting Status No 09/27/2023 3:55 AM EDT [facility] Blood VENOUS BLOOD SPECIMEN / Unknown IP Care Team Draw / Unknown 09/27/2023 3:09 AM EDT 09/27/2023 3:20 AM EDT Henry Elder APRN CHEMISTRY ORDERABL ES [facility] [place] [id number] * (ABNORMAL) CBC (with Diff) (09/27/2023 3:09 AM EDT) White Blood Cell 10.74(H) 4.00 - 9.50 x10(3)/mc L 09/27/2023 3:25 AM EDT [facility] Red Blood Cell 5.46 4.58 - 5.54 x10(6)/mc L 09/27/2023 3:25 AM EDT [facility] Hemoglobin 15.7 13.7 - 16.5 g/dL 09/27/2023 3:25 AM EDT [facility] Hematocrit 47.3 40.5 - 48.5 % 09/27/2023 3:25 AM EDT [facility] Mean Cell Volume 86.6 82.9 - 93.1 fL 09/27/2023 3:25 AM EDT [facility] Mean Cell Hemoglobin 28.8 27.5 - 32.1 pg 09/27/2023 3:[address] [facility] Mean Cell Hemoglobin Concentration 33.2 32.0 - 35.7 g/dL 09/27/2023 3:[address] [facility] Platelet 215 145 - 357 x10(3)/mc L 09/27/2023 3:[address] [facility] Mean Platelet Volume 9.2 7.6 - 12.9 fL 09/27/2023 3:[address] [facility] RDW Standard Deviation 41.4 36.0 - 45.0 fL 09/27/2023 3:[address] [facility] RDW coefficient of variation 13.2 11.4 - 13.8 % 09/27/2023 3:[address] [facility] NRBC% auto 0.0 % 09/27/2023 3:[address] [facility] NRBC Absolute 0.00 0.00 - 0.00 x10(3)/mc L 09/27/2023 3:[address] [facility] Neutrophil % 54.1 % 09/27/2023 3:[address] [facility] Neutrophil Absolute (ANC) - Automated 5.82 1.70 - 6.10 x10(3)/mc L 09/27/2023 3:[address] [facility] Lymph % 38.0 % 09/27/2023 3:[address] [facility] Lymph Absolute 4.08(H) 0.90 - 3.20 x10(3)/mc L 09/27/2023 3:[address] [facility] Monocyte % 5.2 % 09/27/2023 3:[address] [facility] Monocyte Absolute 0.56 0.30 - 0.90 x10(3)/mc L 09/27/2023 3:[address] [facility] Eos % 1.9 % 09/27/2023 3:[address] [facility] Eos Absolute 0.20 0.00 - 0.40 x10(3)/mc L 09/27/2023 3:25 AM EDT [facility] Basophil % 0.5 % 09/27/2023 3:25 AM EDT [facility] Baso Absolute 0.05 0.00 - 0.10 x10(3)/mc L 09/27/2023 3:25 AM EDT [facility] Immature Gran % 0.3 % 3:25 AM EDT [facility] Immature Gran Absolute 0.03 0.00 - 0.04 x10(3)/mc L 09/27/2023 3:25 AM EDT [facility] Blood VENOUS BLOOD SPECIMEN / Unknown IP Care Team Draw / Unknown 09/27/2023 3:09 AM EDT 09/27/2023 3:20 AM EDT Henry Elder APRN HEMATOLOGY ORDERAB LES [facility] [place] [address] * Phosphorus (09/26/2023 3:31 AM EDT) Phosphorus 2.6 2.5 - 4.5 mg/dL 09/26/2023 4:55 AM EDT [facility] Blood VENOUS BLOOD SPECIMEN / Unknown IP Care Team Draw / Unknown 09/26/2023 3:31 AM EDT 09/26/2023 3:49 AM EDT Henry Elder [employer] CHEMISTRY ORDERABL ES [facility] [place] [address] * Magnesium (09/26/2023 3:31 AM EDT) Magnesium 0.82 0.69 - 1.07 mMol/L 09/26/2023 5:02 AM EDT [facility] Blood VENOUS BLOOD SPECIMEN / Unknown IP Care Team Draw / Unknown 09/26/2023 3:31 AM EDT 09/26/2023 3:49 AM EDT Henry Elder LIZA CHEMISTRY ORDERABL ES [facility] [place] [address] * (ABNORMAL) CBC (with Diff) (09/26/2023 3:31 AM EDT) White Blood Cell 10.89(H) 4.00 - 9.50 x10(3)/mc L 09/26/2023 5:29 AM EDT [facility] Red Blood Cell 4.83 4.58 - 5.54 x10(6)/mc L 09/26/2023 5:29 AM EDT [facility] Hemoglobin 14.2 13.7 - 16.5 g/dL 09/26/2023 5:29 AM EDT [facility] Hematocrit 42.5 40.5 - 48.5 % 09/26/2023 5:29 AM EDT [facility] Mean Cell Volume 88.0 82.9 - 93.1 fL 09/26/2023 5:29 AM EDT [facility] Mean Cell Hemoglobin 29.4 27.5 - 32.1 pg 09/26/2023 5:29 AM EDT [facility] Mean Cell Hemoglobin Concentration 33.4 32.0 - 35.7 g/dL 09/26/2023 5:29 AM EDT [facility] Platelet 188 145 - 357 x10(3)/mc L 09/26/2023 5:29 AM EDT [facility] Mean Platelet Volume 10.1 7.6 - 12.9 fL 09/26/2023 5:29 AM EDT [facility] RDW Standard Deviation 42.5 36.0 - 45.0 fL 09/26/2023 5:29 AM EDT [facility] RDW coefficient of variation 13.2 11.4 - 13.8 % 09/26/2023 5:[address] [facility] NRBC% auto 0.0 % 09/26/2023 5:[address] [facility] NRBC Absolute 0.00 0.00 - 0.00 x10(3)/mc L 09/26/2023 5:[address] [facility] Neutrophil % 59.4 % 09/26/2023 5:[address] [facility] Neutrophil Absolute (ANC) - Automated 6.47(H) 1.70 - 6.10 x10(3)/mc L 09/26/2023 5:[address] [facility] Lymph % 32.6 % 09/26/2023 5:[address] [facility] Lymph Absolute 3.55(H) 0.90 - 3.20 x10(3)/mc L 09/26/2023 5:[address] [facility] Monocyte % 5.8 % 09/26/2023 5:[address] [facility] Monocyte Absolute 0.63 0.30 - 0.90 x10(3)/mc L 09/26/2023 5:[address] [facility] Eos % 1.7 % 09/26/2023 5:[address] [facility] Eos Absolute 0.19 0.00 - 0.40 x10(3)/mc L 09/26/2023 5:[address] [facility] Basophil % 0.3 % 09/26/2023 5:[address] [facility] Baso Absolute 0.03 0.00 - 0.10 x10(3)/mc L 09/26/2023 5:[address] [facility] Immature Gran % 0.2 % 5:[address] [facility] Immature Gran Absolute 0.02 0.00 - 0.04 x10(3)/mc L 09/26/2023 5:29 AM EDT [facility] Blood VENOUS BLOOD SPECIMEN / Unknown IP Care Team Draw / Unknown 09/26/2023 3:31 AM EDT 09/26/2023 3:49 AM EDT Henry Elder APRN HEMATOLOGY ORDERAB LES Performing Organization Address City/[facility]/ZIP Co de Phone Number [facility] [place] [address] * Vancomycin, trough (09/26/2023 3:31 AM EDT) Vancomycin, Trough 16.9 10.0 - 20.0 mg/L 09/26/2023 4:55 AM EDT [facility] Comment: Varies according to infection source. Blood VENOUS BLOOD SPECIMEN / Unknown IP Care Team Draw / Unknown 09/26/2023 3:31 AM EDT 09/26/2023 3:49 AM EDT Rhoda Jimenez MD CHEMISTRY ORDERABLES Performing Organization Address City/[facility]/ZIP Co de Phone Number [facility] [place] [address] * Basic Metabolic Panel (09/26/2023 3:30 AM EDT) Glucose 104 65 - 199 mg/dL [facility] Comment:Diabetes: >=200 mg/d L plus symptoms Blood Urea Nitrogen 13 10 - 20 mg/dL [facility] Creatinine 1.15 0.80 - 1.50 mg/dL [facility] Sodium 139 135 - 145 mmol/L [facility] Potassium 4.2 3.5 - 5.0 mmol/L [facility] Comment: Please note: ??Patients with WBC >100,000 may have falsely elevated Potassium levels. ??For accurate Potassium quantification in these patients send serum separator tube (gold top) for subsequent determinations. ??Contact the Clinical Chemistry Laboratory if there are any questions. Chloride 107 98 - 107 mmol/L [facility] Carbon Dioxide 22 22 - 31 mmol/L [facility] Anion Gap 10 5 - 15 mmol/L [facility] Calcium 8.6 8.5 - 10.5 mg/dL [facility] Est Glomerular Filtration Rate 78 >=60 mL/min/1. 73 m?? [facility] Comment: This patient's estimated GFR [...] APRN CHEMISTRY ORDERABL ES Performing Organization Address [facility]/ZIP Co de Phone Number [facility] [place] [address] * Iron Stain, Body Fluid (09/25/2023 12:25 PM EDT) Iron Stain BF Type CSF [facility] Body Fluid Iron Stain, Fld See Comment [facility] Comment:Cerebrospinal fluid positive for hemosiderin. Cerebrospinal Fluid 09/25/19 12:25 PM EDT 09/25/2023 12:46 PM EDT Narrative Resulting Agency Comment Spec In Lab Sarika DURHAM HEMATOLOGY ORDERABL ES [facility] [place] [place] [address] * (ABNORMAL) CSF Cell Count (09/25/2023 12:25 PM EDT) Tube # counted 1 [facility] AUTO NUC CSF CT 80(H) 0 - 5 /mcl [facility] Comment: If Nucleated CSF CT [...] clinical condition. RBC CSF CT 596 /mcl [facility] Segmented Neutrophils, CSF 93(Critic al) % [facility] Comment:Called by: jeff, Read back by: robin jones, Date/Time:09/25/23 14:24. Lymphocyte, CSF 2 % [facility] Macrophage CSF 5 % [facility] Comment: Hemosiderin suspected. To be confirmed by iron stain. Occassional WBC phagocytosis. Slide review per routine audit. Corrected report to add slide comments. Called by: CAMMY, Read back by: Josselyn Diaz, Date/Time:10/07/23 16:17. Corrected from 5 % [NA] on 10/07/23 16:17:42 EDT by Lela Abraham Total Cells, CSF 200 Cells [facility] Cerebrospinal Fluid 09/25/19 12:25 PM EDT 09/25/2023 12:46 PM EDT Narrative Resulting Agency Comment Spec In Lab Sarika E Mary Lou PA BODY FLUIDS AND STO OLS ORDERABLES [facility] [place] [address] * CSF DESC 1 (09/25/2023 12:25 PM EDT) Tube Num CSF #1 1 [facility] Color, CSF Colorless Colorless [facility] Appearance, CSF Clear Clear [facility] Total Vol, CSF 2.3 mL [facility] Cerebrospinal Fluid 09/25/19 12:25 PM EDT 09/25/2023 12:46 PM EDT Narrative Resulting Agency Comment Spec In Lab Sarika DURHAM BODY FLUIDS AND STO OLS ORDERABLES Performing Organization Address [facility]/ZIP Co de Phone Number [facility] [place] [address] * Glucose Level CSF (09/25/2023 12:25 PM EDT) Glucose, CSF 106 mg/dL [facility] Comment:CSF at equilibrium e quals approximately 60-80% of plasma glucose. Cerebrospinal Fluid 09/25/19 12:25 PM EDT 09/25/2023 12:46 PM EDT Narrative Resulting Agency Comment Spec In Lab Rhoda Jimenez MD BODY FLUIDS AND STOO LS ORDERABLES Performing Organization Address [facility]/ZIP Co de Phone Number [facility] [address] * Protein Level CSF (09/25/2023 12:25 PM EDT) Protein, CSF 32 15 - 45 mg/dL [facility] Comment:result rechecked-EWR Xanthochromia Neg [facility] Cerebrospinal Fluid 09/25/19 12:25 PM EDT 09/25/2023 12:46 PM EDT Narrative Resulting Agency Comment Spec In Lab Rhoda Jimenez MD BODY FLUIDS AND STOO LS ORDERABLES Performing Organization Address City/[facility]/ZIP Co de Phone Number [facility] [place] [address] * DIRT SHOVELER Shunt Culture (09/25/2023 12:24 PM EDT) Central Nervous System Shunt Culture No growth at 10 days. [facility] Gram Stain Cytocentrifuge Gram Stain performed Neutrophils seen No microorganisms seen. [facility] Cerebrospinal Shunt Fluid 09/25/2023 12:24 PM EDT 09/25/2023 1:00 PM EDT Narrative Resulting Agency Comment Spec In Lab Sarika DURHAM MICROBIOLOGY - GENE RAL ORDERABLES [facility] [place] [address] * (ABNORMAL) Differential, Automated (09/25/2023 3:20 AM EDT) Neutrophil % 86.0 % [facility] Neutrophil Absolute 15.58(H) 1.70 - 6.10 x10(3)/[facility] Lymph % 10.2 % [facility] Lymphocytes Abs 1.8 0.9 - 3.2 x10(3)/[facility] Monocyte % 3.3 % [facility] Monocyte Abs 0.6 0.3 - 0.9 x10(3)/[facility] Eos % 0.0 % [facility] Eosinophils Abs 0.0 0.0 - 0.4 x10(3)/[facility] Basophil % 0.1 % [facility] Baso Absolute 0.0 0.0 - 0.1 x10(3)/[facility] Immature Gran % 0.40 % [facility] Comment: Immature granulocytes(IG's)percentage and absolute count will include metamyelocytes, myelocytes, and promyelocytes. Blood smears from CBCs yielding IG's will be scanned manually for concordance. If this scan disagrees with the automated IG or if promyelocytes are noted, a manual differential will be performed. Immature Gran Absolute 0.07(H) 0.00 - 0.04 x10(3)/ L [facility] Blood 09/25/2023 3:20 AM EDT 09/25/2023 3:49 AM EDT Narrative Resulting Agency Comment Spec In Lab Henry Elder [employer]IST[employer] HEMATOLOGY ORDERAB LES Performing Organization Address City/[facility]/ZIP Co de Phone Number [facility] [address] * (ABNORMAL) Hemogram (09/25/2023 3:20 AM EDT) [facility] White Blood Cell 18.1(H) 4.0 - 9.5 x10(3)/mc L [facility] Red Blood Cell 5.10 4.58 - 5.54 x10(6)/mc L [facility] Hemoglobin 14.8 13.7 - 16.5 g/dL [facility] Hematocrit 43.6 40.5 - 48.5 % [facility] Mean Cell Volume 85.5 82.9 - 93.1 fL [facility] Mean Cell Hemoglobin 29.0 27.5 - 32.1 pg [facility] Mean Cell Hemoglobin Concentration 33.9 32.0 - 35.7 g/dL [facility] Platelet 237 145 - 357 x10(3)/mc L [facility] RDW Standard Deviation 40.0 36.0 - 45.0 [facility] RDW coefficient of variation 12.9 11.4 - 13.8 % [facility] Mean Platelet Volume 10.0 7.6 - 12.9 [facility] NRBC% auto 0.0 % [facility] NRBC Absolute 0.000 0.000 - 0.000 x10(3)/mc L [facility] Blood 09/25/2023 3:20 AM EDT 09/25/2023 3:49 AM EDT Narrative Resulting Agency Comment Spec In Lab Henry Lunakuldipjoey [employer]IST[employer] HEMATOLOGY ORDERAB LES [facility] [place] [address] * Phosphorus (09/25/2023 3:20 AM EDT) Phosphorus 3.0 2.5 - 4.5 mg/dL [facility] Blood 09/25/2023 3:20 AM EDT 09/25/2023 3:49 AM EDT Narrative Resulting Agency Comment Spec In Lab Henry Elder [employer] ASSIST[employer] CHEMISTRY ORDERABL ES Performing Organization Address [facility] Co de Phone Number [facility] [place] [address] * Magnesium (09/25/2023 3:20 AM EDT) Magnesium 0.83 0.69 - 1.07 mmol/L [facility] Blood 09/25/2023 3:20 AM EDT 09/25/2023 3:49 AM EDT Narrative Resulting Agency Comment Spec In Lab Henry Lunakuldipell [employer] ASSISTANT CHEMISTRY ORDERABL ES Performing Organization Address [facility] Co de Phone Number [facility] [place] [address] * Basic Metabolic Panel (non-fasting) (09/25/2023 3:20 AM EDT) Pathologist [facility] Glucose 133 65 - 199 mg/dL [facility] Comment:Diabetes: >=200 mg/d L plus symptoms Blood Urea Nitrogen 13 10 - 20 mg/dL [facility] Creatinine 1.08 0.80 - 1.50 mg/dL [facility] Sodium 141 135 - 145 mmol/L [facility] Potassium 4.2 3.5 - 5.0 mmol/L [facility] Comment: Please note: ??Patients with WBC >100,000 may have falsely elevated Potassium levels. ??For accurate Potassium quantification in these patients send serum separator tube (gold top) for subsequent determinations. ??Contact the Clinical Chemistry Laboratory if there are any questions. Chloride 107 98 - 107 mmol/L [facility] Carbon Dioxide 22 22 - 31 mmol/L [facility] Anion Gap 12 5 - 15 mmol/L [facility] Calcium 8.7 8.5 - 10.5 mg/dL [facility] Est Glomerular Filtration Rate 84 >=60 mL/min/1. 73 m?? [facility] Comment: This patient's estimated GFR [...] Lab Henry Elder APRN CHEMISTRY ORDERABL ES [facility] [place] [address] * CT Head wo Contrast (Generic) (09/24/2023 4:31 PM EDT) [employer] WORKSTATION ID [id number] DH RAD Anatomical Region Laterality Modality Head [...] who have questions please contact the health personal caregiver that requested your imaging first. ? Narrative [...] patients who have questions please contactthe health personal caregiver that requested your imaging first. Rhoda Jimenez MD IMG CT ORDERABLES * Anaerobic Culture (09/24/2023 10:30 AM EDT) Anaerobic Culture No anaerobic organisms isolated [facility] Fluid 09/24/2023 10:3 0 AM EDT 09/24/2023 11:49 AM EDT Comment:CSF Narrative Resulting Agency Comment Spec In Lab Rhoda Jimenez MD MICROBIOLOGY - GENER AL ORDERABLES [facility] [place] [address] * Body Fluid Culture, Aerobic (09/24/2023 10:30 AM EDT) Body Fluid Culture No growth [facility] Gram Stain Cytocentrifuge Gram Stain performed No Neutrophils seen. No microorganisms seen. [facility] Fluid 09/24/2023 10:3 0 AM EDT 09/24/2023 11:49 AM EDT Comment:CSF Narrative Resulting Agency Comment Spec In Lab Rhoda Jimenez MD MICROBIOLOGY - GENER AL ORDERABLES Performing Organization Address [facility] Co de Phone Number [facility] [place] [address] * Fungus culture (09/24/2023 10:30 AM EDT) Fungus Culture No Fungus isolated [facility] Cerebrospinal Fluid 09/24/19 10:30 AM EDT 09/24/2023 11:49 AM EDT Narrative Resulting Agency Comment Spec In Lab Rhoda Jimenez MD MICROBIOLOGY - GENER AL ORDERABLES Performing Organization Address [facility] Co de Phone Number [facility] [place] [address] * AFB culture (09/24/2023 10:30 AM EDT) Acid Fast Bacilli Culture No Acid Fast Bacilli isolated Specimen received with sub-optimal CSF volume of <5 mL. The sensitivity of the AFB culture is therefore compromised. [facility] Cerebrospinal Fluid 09/24/19 10:30 AM EDT 09/24/2023 11:49 AM EDT Narrative Resulting Agency Comment Spec In Lab Rhoda Jimenez MD MICROBIOLOGY - GENER AL ORDERABLES Performing Organization Address [facility] Co de Phone Number [facility] [place] [address] * Calcium Ionized Whole Blood, CHANO (09/24/2023 3:17 AM EDT) pH, Venous 7.39 7.32 - 7.42 [facility] ICa Whole Blood 1.20 1.15 - 1.33 mmol/L [facility] Comment: Note: ??Total bilirubin higher than 20 mg/dL may lead to falsely low ionized calcium. Blood 09/24/2023 3:17 AM EDT 09/24/2023 3:26 AM EDT Narrative Resulting Agency Comment Spec In Lab Henry Elder GOLF PLAYER ASSISTANT CHEMISTRY ORDERABL ES Performing Organization Address City/[facility]/ZIP Co de Phone Number [facility] [address] * Type and Screen Validity (09/24/2023 3:15 AM EDT) T&S only valid at [facility] LABORATORY Comment:This Type and Screen result is only valid at the [facility] Blood 09/24/2023 3:15 AM EDT 09/24/2023 3:41 AM EDT Narrative Resulting Agency Comment Spec In Lab Henry Elder GOLF PLAYER ASSISTANT BLOOD BANK LAB ORD ERABLES Performing Organization Address City/[facility]/ZIP Co de Phone Number [facility] [place] [address] * ABORH Recheck Status (09/24/2023 3:15 AM EDT) ABORH Type Recheck Completed [facility] Blood 09/24/2023 3:15 AM EDT 09/24/2023 3:41 AM EDT Narrative Resulting Agency Comment Spec In Lab Henry Elder GOLF PLAYER ASSISTANT BLOOD BANK LAB ORD ERABLES Performing Organization Address City/[facility]/ZIP Co de Phone Number [facility] [address] * Type and screen ([facility]/DULCE MARIA) (09/24/2023 3:15 AM EDT) ABORH Type A POSITIVE [facility] Patient BB History Found [facility] Expires at [id number] on: 09/27/2023 [facility] Ab Screen Interp Negative [facility] Blood 09/24/2023 3:15 AM EDT 09/24/2023 3:15 AM EDT Narrative [facility] - 09/24/2023 3:15 AM EDT This Type and Screen result is only valid at the [facility] Resulting Agency Comment Spec In Lab Henry Elder APRN BLOOD BANK LAB ORD ERABLES [facility] [place] [address] * POCT Glucose (09/24/2023 2:36 AM EDT) Pathologist [facility] Glucose, POC 97 65 - 199 mg/dL [facility] Comment: Supplemental ranges: <140 mg/dL before meals <180 mg/dL all other times of the day Blood 09/24/2023 2:36 AM EDT 09/24/2023 2:36 AM EDT Rhoda Jimenez MD POINT OF CARE TEST O RDERABLES Performing Organization Address City/[facility]/ZIP Co de Phone Number [facility] [place] [address] * (ABNORMAL) Differential, Automated (09/24/2023 12:30 AM EDT) Neutrophil % 60.4 % [facility] Neutrophil Absolute 6.98(H) 1.70 - 6.10 x10(3)/mc L [facility] Lymph % 32.2 % [facility] Lymphocytes Abs 3.7(H) 0.9 - 3.2 x10(3)/mc L [facility] Monocyte % 5.6 % [facility] Monocyte Abs 0.6 0.3 - 0.9 x10(3)/mc L [facility] Eos % 1.1 % [facility] Eosinophils Abs 0.1 0.0 - 0.4 x10(3)/ L [facility] Basophil % 0.4 % [facility] Baso Absolute 0.0 0.0 - 0.1 x10(3)/[facility] LABORATORY Immature Gran % 0.30 % [facility] Comment: Immature granulocytes(IG's)percentage and absolute count will include metamyelocytes, myelocytes, and promyelocytes. Blood smears from CBCs yielding IG's will be scanned manually for concordance. If this scan disagrees with the automated IG or if promyelocytes are noted, a manual differential will be performed. Immature Gran Absolute 0.03 0.00 - 0.04 x10(3)/[facility] LABORATORY Blood 09/24/2023 12:3 0 AM EDT 09/24/2023 12:44 AM EDT Narrative Resulting Agency Comment Spec In Lab Richard Valles MD HEMATOLOGY ORDERABLE S [facility] [place] [address] * (ABNORMAL) Hemogram (09/24/2023 12:30 AM EDT) White Blood Cell 11.6(H) 4.0 - 9.5 x10(3)/[facility] LABORATORY Red Blood Cell 5.52 4.58 - 5.54 x10(6)/[facility]ORATORY Hemoglobin 16.0 13.7 - 16.5 g/dL [facility] Hematocrit 47.0 40.5 - 48.5 % [facility] Mean Cell Volume 85.1 82.9 - 93.1 fL [facility] Mean Cell Hemoglobin 29.0 27.5 - 32.1 pg [facility] Mean Cell Hemoglobin Concentration 34.0 32.0 - 35.7 g/dL [facility] Platelet 213 145 - 357 x10(3)/ L [facility] RDW Standard Deviation 39.5 36.0 - 45.0 fL [facility] RDW coefficient of variation 12.8 11.4 - 13.8 % [facility] Mean Platelet Volume 9.5 7.6 - 12.9 fL [facility] NRBC% auto 0.0 % [facility] NRBC Absolute 0.000 0.000 - 0.000 x10(3)/mc L [facility] Blood 09/24/2023 12:3 0 AM EDT 09/24/2023 12:44 AM EDT Narrative Resulting Agency Comment Spec In Lab Richard Valles MD HEMATOLOGY ORDERABLE S [facility] [place] [address] * Basic Metabolic Panel (non-fasting) (09/24/2023 12:30 AM EDT) Glucose 89 65 - 199 mg/dL [facility] Comment:Diabetes: >=200 mg/d L plus symptoms Blood Urea Nitrogen 13 10 - 20 mg/dL [facility] Creatinine 0.89 0.80 - 1.50 mg/dL [facility] Sodium 139 135 - 145 mmol/L [facility] Potassium 3.8 3.5 - 5.0 mmol/L [facility] Comment: Please note: ??Patients with WBC >100,000 may have falsely elevated Potassium levels. ??For accurate Potassium quantification in these patients send serum separator tube (gold top) for subsequent determinations. ??Contact the Clinical Chemistry Laboratory if there are any questions. Chloride 104 98 - 107 mmol/L [facility] Carbon Dioxide 23 22 - 31 mmol/L [facility] Anion Gap 12 5 - 15 mmol/L [facility] Calcium 9.3 8.5 - 10.5 mg/dL [facility] Est Glomerular Filtration Rate 104 >=60 mL/min/1. 73 m?? [facility] Comment: This patient's estimated GFR [...] Dhaliwal MD CHEMISTRY ORDERABLES Performing Organization Address [facility] Co de Phone Number [facility] [address] * (ABNORMAL) DIRT SHOVELER Shunt Culture (09/23/2023 11:30 PM EDT) Central Nervous System Shunt Culture No growth at 10 days.(A) [facility] Reviewed Stain Note: This is a corrected report Cytocentrifuge Gram Stain performed Neutrophils seen No microorganisms seen. Previously reported as: Cytocentrifuge Gram Stain performed Neutrophils seen Rare Gram Positive Rods seen (A) [facility] Gram Stain Cytocentrifuge Gram Stain performed Neutrophils seen Rare Gram Positive Rods seen Results called to and read back by 09/24/23 01:01:08 Gina Harper (A) [facility] Organism Gram Positive Rods(A) [facility] Cerebrospinal Shunt Fluid 09/23/2023 11:30 PM EDT 09/24/2023 12:27 AM EDT Narrative Resulting Agency Comment Spec In Lab Richard Valles MD MICROBIOLOGY - GENER AL ORDERABLES Performing Organization Address [facility]/ZIP Co de Phone Number [facility] [place] [address] * CSF Cell Count (09/23/2023 11:30 PM EDT) Tube # counted 1 [facility] AUTO NUC CSF CT 4 0 - 5 /mcl MAR Y [facility] Comment: If Nucleated CSF CT result [...] clinical condition. RBC CSF CT 161 /mcl [facility] Cerebrospinal Fluid 09/23/19 11:30 PM EDT 09/24/2023 12:13 AM EDT Narrative Resulting Agency Comment Spec In Lab Richard Valles MD BODY FLUIDS AND STOO LS ORDERABLES Performing Organization Address City/[facility]/ZIP Co de Phone Number [facility] [address] * CSF DESC 1 (09/23/2023 11:30 PM EDT) Tube Num CSF #1 1 [facility] Color, CSF Colorless Colorless [facility] Appearance, CSF Clear Clear [facility] Total Vol, CSF 2.5 mL [facility] Cerebrospinal Fluid 09/23/19 11:30 PM EDT 09/24/2023 12:13 AM EDT Narrative Resulting Agency Comment Spec In Lab Richard Valles MD BODY FLUIDS AND STOO LS ORDERABLES [facility] [place] [address] * Glucose Level CSF (09/23/2023 11:30 PM EDT) Glucose, CSF 65 mg/dL [facility] Comment:CSF at equilibrium e quals approximately 60-80% of plasma glucose. Cerebrospinal Fluid 09/23/19 11:30 PM EDT 09/24/2023 12:13 AM EDT Narrative Resulting Agency Comment Spec In Lab Annita Dhaliwal MD BODY FLUIDS AND STOO LS ORDERABLES Performing Organization Address [facility] Co de Phone Number [facility] [address] * (ABNORMAL) Protein Level CSF (09/23/2023 11:30 PM EDT) Pathologist [facility] Protein, CSF 70(H) 15 - 45 mg/dL [facility] Xanthochromia Neg [facility] Cerebrospinal Fluid 09/23/19 11:30 PM EDT 09/24/2023 12:13 AM EDT Narrative Resulting Agency Comment Spec In Lab Annita Dhaliwal MD BODY FLUIDS AND STOO LS ORDERABLES Performing Organization Address [facility] Co de Phone Number [facility] [place] [address] * L-Lactate2 Whole Blood (09/23/2023 11:00 PM EDT) Pathologist [facility] Lactate WB 1.4 0.5 - 2.2 mmol/L [facility] Blood 09/23/2023 11:0 0 PM EDT 09/23/2023 11:00 PM EDT Annita Dhaliwal MD CHEMISTRY ORDERABLES Performing Organization Address [facility] Co de Phone Number [facility] [place] [address] * CT Head wo Contrast (Generic) (09/23/2023 8:01 PM EDT) Pathologist [facility] WORKSTATION ID [id number] DH RAD Anatomical Region Laterality Modality Head Computed Tomogra phy Impressions 09/23/2023 8:42 PM EDT Unchanged caliber of the ventricles. Thank you for letting us participate in the care of this patient. ??If you are a health care provider and have any questions regarding this report, please contact the number below. ??For patients who have questions please contact the health personal caregiver that requested your imaging first. ? Electronically signed by: HAIM Song [facility] ([phone]), at 09/23/2023 8:42 PM Narrative 09/23/2023 8:42 [...] patients who have questions please contactthe health personal caregiver that requested your imaging first. Annita Dhaliwal MD IMG CT ORDERABLES * XR Shunt Series (09/23/2023 6:29 PM EDT) WORKSTATION ID [id number] RAD Anatomical Region Laterality Modality N/A Digital Radiogra phy Impressions 09/23/2023 7:12 PM EDT Right ventriculopleural shunt without kink or discontinuity identified. Thank you for letting us participate in the care of this patient. ??If you are a health care provider and have any questions regarding this report, please contact the number below. ??For patients who have questions please contact the health personal caregiver that requested your imaging first. ? Narrative 09/23/2023 7:12 PM EDT EXAMINATION: XR [...] patients who have questions please contactthe health personal caregiver that requested your imaging first. Primo Story GOLF PLAYER ASSISTANT IMG DX ORDERABLES * Prothrombin Time (09/23/2023 6:10 PM EDT) Prothrombin Time 11.7 9.4 - 12.5 sec [facility] International Normalization Ratio 1.0 [facility] Comment: An INR <2.0 indicates [...] MD HEMATOLOGY ORDERABLE S Performing Organization Address [facility] Co de Phone Number [facility] [address] * APTT (09/23/2023 6:10 PM EDT) Partial Thromboplastin Time 35 25 - 37 sec [facility] Comment: The PTT is NOT [...] MD HEMATOLOGY ORDERABLE S Performing Organization Address City/[facility] Co de Phone Number [facility] [address] * Gold Tube HOLD (09/23/2023 6:10 PM EDT) Gold Hold Sample in lab. [facility] Blood Venous Draw / Unknown 09/23/2023 6:10 PM EDT 09/23/2023 6:25 PM EDT Primo Story GOLF PLAYER ASSISTANT CHEMISTRY ORDERABLES Performing Organization Address City/[facility]/ZIP Co de Phone Number [facility] [address] * Blue Tube HOLD (09/23/2023 6:10 PM EDT) Pathologist [facility] Blue Hold Sample in lab. [facility] Blood Venous Draw / Unknown 09/23/2023 6:10 PM EDT 09/23/2023 6:22 PM EDT Primo Story GOLF PLAYER ASSISTANT HEMATOLOGY ORDERABLE S [facility] [place] [address] * (ABNORMAL) Differential, Automated (09/23/2023 6:10 PM EDT) [facility] Neutrophil % 66.3 % [facility] Neutrophil Absolute 7.15(H) 1.70 - 6.10 x10(3)/mc L [facility] Lymph % 28.3 % [facility] Lymphocytes Abs 3.1 0.9 - 3.2 x10(3)/mc L [facility] Monocyte % 3.5 % [facility] Monocyte Abs 0.4 0.3 - 0.9 x10(3)/mc L [facility] Eos % 1.0 % [facility] Eosinophils Abs 0.1 0.0 - 0.4 x10(3)/mc L [facility] Basophil % 0.7 % [facility] Baso Absolute 0.1 0.0 - 0.1 x10(3)/mc L [facility] Immature Gran % 0.20 % [facility] Comment: Immature granulocytes(IG's)percentage and absolute count will include metamyelocytes, myelocytes, and promyelocytes. Blood smears from CBCs yielding IG's will be scanned manually for concordance. If this scan disagrees with the automated IG or if promyelocytes are noted, a manual differential will be performed. Immature Gran Absolute 0.02 0.00 - 0.04 x10(3)/mc L [facility] Blood 09/23/2023 6:10 PM EDT 09/23/2023 6:22 PM EDT Narrative Resulting Agency Comment Spec In Lab Primo Story GOLF PLAYER ASSISTANT HEMATOLOGY ORDERABLE S [facility] [place] [address] * (ABNORMAL) Hemogram (09/23/2023 6:10 PM EDT) White Blood Cell 10.8(H) 4.0 - 9.5 x10(3)/[facility] LABORATORY Red Blood Cell 5.90(H) 4.58 - 5.54 x10(6)/[facility]ATORY Hemoglobin 17.0(H) 13.7 - 16.5 g/dL [facility] Hematocrit 49.4(H) 40.5 - 48.5 % [facility] Mean Cell Volume 83.7 82.9 - 93.1 fL [facility] Mean Cell Hemoglobin 28.8 27.5 - 32.1 pg [facility] Mean Cell Hemoglobin Concentration 34.4 32.0 - 35.7 g/dL [facility] Platelet 227 145 - 357 x10(3)/[facility] LABORATORY RDW Standard Deviation 39.8 36.0 - 45.0 [facility]ATORY RDW coefficient of variation 13.0 11.4 - 13.8 % [facility] Mean Platelet Volume 9.1 7.6 - 12.9 [facility]ORY NRBC% auto 0.0 % [facility] NRBC Absolute 0.000 0.000 - 0.000 x10(3)/[facility] Blood 09/23/2023 6:10 PM EDT 09/23/2023 6:22 PM EDT Narrative Resulting Agency Comment Spec In Lab Primo Story LIZA HEMATOLOGY ORDERABLE S Performing Organization Address [facility]/ZIP Co de Phone Number [facility] [place] [address] * CRP, acute inflammation (09/23/2023 6:10 PM EDT) C-Reactive Protein 3.6 <=4.9 mg/L [facility] Blood 09/23/2023 6:10 PM EDT 09/23/2023 6:22 PM EDT Narrative Resulting Agency Comment Spec In Lab Primo Story LIZA CHEMISTRY ORDERABLES Performing Organization Address [facility] Co de Phone Number [facility] [address] * (ABNORMAL) Sedimentation rate (09/23/2023 6:10 PM EDT) [facility] Sedimentation Rate Automated 47(H) 2 - 37 mm/hr [facility] Comment: Effective February 02, 2019 new capillary photometric technology has resulted in a change in reference ranges. It is recommended that each ESR result be reviewed with its own age appropriate reference range. Blood 09/23/2023 6:10 PM EDT 09/23/2023 6:22 PM EDT Narrative Resulting Agency Comment Spec In Lab Primo Story LIZA HEMATOLOGY ORDERABLE S Performing Organization Address [facility]/ZIP Co de Phone Number [facility] [address] * Basic Metabolic Panel (non-fasting) (09/23/2023 6:10 PM EDT) Glucose 167 65 - 199 mg/dL [facility] Comment:Diabetes: >=200 mg/d L plus symptoms Blood Urea Nitrogen 14 10 - 20 mg/dL [facility] Creatinine 1.05 0.80 - 1.50 mg/dL [facility] Sodium 137 135 - 145 mmol/L [facility] Potassium 3.8 3.5 - 5.0 mmol/L [facility] Comment: Please note: ??Patients with WBC >100,000 may have falsely elevated Potassium levels. ??For accurate Potassium quantification in these patients send serum separator tube (gold top) for subsequent determinations. ??Contact the Clinical Chemistry Laboratory if there are any questions. Chloride 100 98 - 107 mmol/L [facility] Carbon Dioxide 22 22 - 31 mmol/L [facility] Anion Gap 15 5 - 15 mmol/L [facility] Calcium 9.9 8.5 - 10.5 mg/dL [facility] Est Glomerular Filtration Rate 86 >=60 mL/min/1. 73 m?? [facility] Comment: This patient's estimated GFR [...] In Lab Primo Story APRN CHEMISTRY ORDERABLES [facility] [address] * Blood culture (09/23/2023 6:10 PM EDT) Blood Culture No growth at 5 days. [facility] Blood 09/23/2023 6:10 PM EDT 09/23/2023 7:02 PM EDT Comment:L ac Narrative Resulting Agency Comment Spec In Lab Primo Story APRN MICROBIOLOGY - BLOOD ORDERABLES [facility] [address] * Blood culture (09/23/2023 12:05 AM EDT) Blood Culture No growth at 5 days. [facility] Blood STRUCTURE OF LEFT FOREARM / Unknown 09/23/2023 12:05 AM EDT 09/24/2023 1:39 AM EDT Narrative Resulting Agency Comment Spec In Lab Primo Story APRN MICROBIOLOGY - BLOOD ORDERABLES Performing Organization Address [facility] Co de Phone Number [facility] [address] documented in this encounter Visit Diagnoses Not [...] 10/09/2023 7:55 PM EDT 975 mg BUPivacaine-EPINEPHrine (0.5% - 1:200,000) injection PRN, Starting on Sandra 09/24/23 at 1009, Until Thu10/09/23 at 1706, Intra-Operative (Intra-Procedure) Given 09/24/2023 10:24 AM EDT 2 mLs 19- Surgical Site Given 09/24/2023 10:09 AM EDT 8 mLs 1 9- Surgical Site docusate sodium (Colace) capsule 100 mg 100 mg, Oral, 2 TIMES DAILY, First dose on Thu09/24/23 at 0230, Until Discontinued, Routine Given 10/09/2023 8:05 AM EDT 100 mg Given 10/07/2023 9:10 PM EDT 100 mg Given 10/07/2023 8:32 AM EDT 100 mg HYDROmorphone (Dilaudid) (0.5 mg/0.5 mL) injection syringe [...] contact provider., Routine Given 10/02/2023 8:30 AM E DT 0.2 mg Given 09/29/2023 8:16 PM EDT 0.2 mg hydrOXYzine (Atarax) tablet 25 mg 25 mg, Oral, NIGHTLY, First dose on Thu09/24/23 at 2100, Until Discontinued, Routine Given 10/09/2023 8:46 PM EDT 25 mg Given 10/08/2023 8:06 PM EDT 25 mg Given 10/07/2023 9:10 PM EDT 25 mg levothyroxine (Synthroid) tablet 25 mcg 25 mcg, Oral, DAILY, First dose on Thu09/24/23 at 0600, Until Discontinued, Routine Given 10/10/2023 [...] Sandra 09/24/23 at 0900, Until Discontinued, Routine Given 10/10/2023 [...] Given 10/09/2023 8:47 PM EDT 1 g thrombin (Bovine) (Thrombinar) kit PRN, Starting on Sandra 09/24/23 at 1025, Until Thu10/09/23 at 1706, Intra-Operative (Intra-Procedure) Given 09/24/2023 10:25 AM EDT 20,000 Units 19- Surgical Site topiramate (Topamax) tablet 25 mg 25 mg, Oral, DAILY, First dose on Sandra 09/24/23 at 0900, Until Discontinued, DO NOT SPLIT, [...] Patient/family refused) 0805 (Given - Provider: Dianelys Call, EDWARD)1222 (MAR Hold - Provider: Admin Adt - Reason: Transfer to a Procedural area)1706 (MAR Unhold - Provider: Admin Adt)2041 (Not Given - Provider: Mitchell Vizcarra, EDWARD - Reason: Patient/family refused) 0900 (Not Given - Provider: Emma Horta RN - Reason: Patient/family refused) hydrOXYzine (Atarax) tablet 25 mg 25 mg, Oral, NIGHTLY, First dose on Thu09/24/23 at 2100, Until Discontinued, Routine 2005 (Given - Provider: Mitchell Vizcarra RN) 1222 ([facility] Hold - Provider: Admin Adt - Reason: Transfer to a Procedural area)170 (MAR Unhold - Provider: Admin Adt)2045 (Given - Provider: Mitchell Vizcarra RN) levothyroxine (Synthroid) tablet 25 mcg 25 mcg, Oral, DAILY, First dose on Sandra 09/24/23 at 0600, Until Discontinued, Routine 420 (Given - Provider: Nelly German RN - Comment: given early, pt has proc this morning)0600 (Canceled Entry - Provider: Nelly German RN - Reason: See comment) 0521 (Hold - Provider: Mitchell Vizcarra RN - Reason: NPO - Comment: Pending surgical procedure)08 (Given - Provider: Dianelys Call RN)1222 ([facility] Hold - Provider: Admin Adt - Reason: Transfer to a Procedural area)170 ([facility] Unhold - Provider: Admin Adt) 622 (Given - Provider: Mitchell Vizcarra, EDWARD) melatonin tablet 6 mg (CANCELED) 6 mg, Oral, NIGHTLY, First dose on Thu09/25/23 at 0030, Until Discontinued, Routine 2005 (Given - Provider: Mitchell Vizcarra RN) 122 ([facility] Hold - Provider: Admin Adt - Reason: Transfer to a Procedural area)170 ([facility] Unhold - Provider: Admin Adt) metoprolol succinate XL (Toprol-XL) tablet 25 mg 25 mg, Oral, DAILY, First dose on Thu09/24/23 at 0900, Until Discontinued, DO NOT CRUSH OR OPEN, Routine 0848 (Given - Provider: Dianelys Call RN) 08 (Given - Provider: Dianelys Call RN)1222 ([facility] Hold - Provider: Admin Adt - Reason: Transfer to a Procedural area)170 ([facility] Unhold - Provider: Admin Adt) 923 (Given - Provider: Emma Horta RN) pantoprazole EC (Protonix) tablet 40 mg 40 mg, Oral, DAILY, First dose on Sandra 09/24/23 at 0900, Until Discontinued 0847 (Given - [...] Dianelys Call RN)2005 (Given - Provider: Mitchell Vizcarra, EDWARD) 08 (Given - Provider: Dianelys Call RN)2046 (Given - Provider: Mitchell Vizcarra, EDWARD) 0925 (Given - Provider: Emma Horta RN) sodium chloride tablet 1 g 1 g, Oral, 3 TIMES DAILY, First dose on Thu10/04/23 at 2100, Until Discontinued, Routine 0847 (Given - Provider: Dianelys Call RN)160 (Given - Provider: Dianelys Call RN)2005 (Given - Provider: Mitchell Vizcarra RN) 0805 (Given - Provider: Dianelys Call RN)1222 (APR Hold - Provider: Admin Adt - Reason: Transfer to a Procedural area)1500 (Automatically Held - Provider: Admin Adt)170 (APR Unhold - Provider: Admin Adt)1719 (Given - Provider: Dianelys Call, EDWARD)2047 (Given - Provider: Mitchell Vizcarra, RN) 0924 (Given - Provider: Emma Horta, EDWARD)1445 (Given - Provider: Tatiana Bernardo RN) topiramate (Topamax) tablet 25 mg 25 mg, Oral, DAILY, First dose on Thu09/24/23 at 0900, Until Discontinued, DO NOT SPLIT, CRUSH OR OPEN, Routine 0847 (Given - Provider: Dianelys Call, EDWARD) 0805 (Given - Provider: Dianelys Call RN)1222 ([facility] Hold - Provider: Admin Adt - Reason: Transfer to a Procedural area)1706 ([facility] Unhold - Provider: Admin Adt) [...] an associated drug lab level. Please see [facility] for scheduled level. Warning Vesicant/Irritant Medication , Routine, Indication for (Active or Suspected): DIRT SHOVELER/Meningitis 0518 (New Bag - Provider: Nelly German [...] Procedural area)170 (APR Unhold - Provider: Admin Adt)1717 (Stopped - [...] PRN pain medications are ordered., Routine 1222 (APR Hold - Provider: Admin Adt - Reason: Transfer to a Procedural area)170 ([facility] Unhold - Provider: Admin Adt)1954 [...] PRN pain medications are ordered., Routine 1222 (APR Hold - Provider: Admin Adt - Reason: Transfer to a Procedural area)170 (APR Unhold - Provider: Admin Adt)1954 (See Alternative - Provider: Mitchell Vizcarra RN) acetaminophen (Tylenol) tablet 975 mg(Linked Group 4) 975 mg, Oral, EVERY 6 HOURS PRN, Starting on 10/03/23 at 1445, Until 10/10/23 at 1938, Pain, - Maximum dose of acetaminophen is 4,000 mg from all sources in 24 hours. - Unless otherwise specified, when ordered PRN for pain, acetaminophen should be given first if other PRN pain medications are ordered., Routine 1222 ([facility] Hold - Provider: Admin Adt - Reason: Transfer to a Procedural area)1706 ([facility] Unhold - Provider: Admin Adt)1955 (Given - Provider: Mitchell Vizcarra RN - [...] be given concomitantly for constipation., Routine 1222 ([facility] Hold - Provider: Admin Adt - Reason: Transfer to a Procedural area)1706 ([facility] Unhold - Provider: Admin Adt) BUPivacaine-EPINEPHrine (Marcaine-Epinephrine) 0.25 %-1:200,000 injection (CANCELED) PRN, Starting on 10/09/23 at 1341, Until Thu10/09/23 at 1706, Intra-Operative (Intra-Procedure), Routine 1341 (Given - Provider: Laila Ricci MD) calcium carbonate (TUMS) chewable tablet 500 mg 500 mg, Oral, EVERY 6 HOURS PRN, Starting on Sandra 09/24/23 at 0010, Until 10/10/23 at 1938, Abdominal cramping, Routine 1222 ([facility] Hold - Provider: Admin Adt - Reason: Transfer to a Procedural area)1706 ([facility] Unhold - Provider: Admin Adt) gelatin adsorbable 12-7 mm sponge (CANCELED) PRN, Starting on 10/09/23 at 1407, Until Thu10/09/23 at 1706, Intra-Operative (Intra-Procedure) 1407 (Given - Provider: Laila Ricci MD - Comment: Gelfoam soaked in 5,000 units of thrombin. Used PRN throughout case) hydrALAZINE (Apresoline) (20 mg/mL) injection 10 mg 10 mg, Intravenous, EVERY 2 HOURS PRN, Starting on Sandra 8 at 0010, Until 10/10/23 at 1938, High Blood Pressure, For systolic blood pressure (SBP) greater than 160 mmHg. May repeat once in 15 minutes if blood pressure remains greater than 160 mmHg. Use if labetaloL ineffective after 2 doses, Routine 1222 ([facility] Hold - Provider: Admin Adt - Reason: Transfer to a Procedural area)1706 ([facility] Unhold - Provider: Admin Adt) [...] within 24 hours, contact provider., Routine 1222 ([facility] Hold - Provider: Admin Adt - Reason: Transfer to a Procedural area)170 ([facility] Unhold - Provider: Admin Adt) labetaloL (Normodyne) (5 mg/mL) injection solution 20 mg 20 mg, Intravenous, EVERY 2 HOURS PRN, Starting on Sandra 09/24/23 at 0010, Until 10/10/23 at 1938, High Blood Pressure, Use for systolic blood pressure (SBP) greater than 160 mmHg. May repeat once in 15 minutes if blood pressure remains greater than 160 mmHg., Routine 1222 ([facility] Hold - Provider: Admin Adt - Reason: Transfer to a Procedural area)1706 ([facility] Unhold - Provider: Admin Adt) lidocaine (Xylocaine) 1% (10 mg/mL) injection 3 mg 3 mg (0.3 mL), Subcutaneous, ONCE PRN, 1 dose, Starting on Sandra 8 at 0010, Until 10/10/23 at 1938, for discomfort with PIV insertion, Recovery (Recovery-Hospital Unit), Routine lidocaine (Xylocaine) 1% (10 mg/mL) injection 30 mg 30 mg (3 mL), Subcutaneous, ONCE PRN, 1 dose, Starting on Thu10/02/23 at 0836, Until 10/10/23 at 1938, drain suture placement, Routine 1222 ([facility] Hold - Provider: Admin Adt - Reason: Transfer to a Procedural area)1705 ([facility] Unhold - Provider: Admin Adt) melatonin tablet 3 mg 3 mg, Oral, NIGHTLY PRN, Starting on Thu10/06/23 at 1947, Until 10/10/23 at 1938, Sleep, Routine 1222 ([facility] Hold - Provider: Admin Adt - Reason: Transfer to a Procedural area)170 ([facility] Unhold - Provider: Admin Adt)2049 (Given - Provider: Mitchell Vizcarra, EDWARD) ondansetron (pf) (Zofran) (2 mg/mL) injection 4 mg 4 mg, Intravenous, EVERY 8 HOURS PRN, Starting on 09/28/23 at 1636, Until 10/10/23 at 1938, Nausea 1222 ([facility] Hold - Provider: Admin Adt - Reason: Transfer to a Procedural area)1705 ([facility] Unhold - Provider: Admin Adt) oxyCODONE (Roxicodone) tablet 5 mg 5 mg, Oral, EVERY 4 HOURS PRN, Starting on Sandra 09/24/23 at 0315, Until 10/10/23 at 1938, Pain, Routine 1222 ([facility] Hold - Provider: Admin Adt - Reason: Transfer to a Procedural area)1705 ([facility] Unhold - Provider: Admin Adt)1746 (Given - Provider: Dianelys Call RN)2046 (Given - Provider: Mitchell Vizcarra RN - Comment: returned from rad scans w/breakthrough incisional pain) polyethylene glycoL (Miralax) packet 17 g 17 g, Oral, DAILY PRN, Starting on Sandra 09/24/23 at 0010, Until 10/10/23 at 1938, Constipation, Routine 1222 ([facility] Hold - Provider: Admin Adt - Reason: Transfer to a Procedural area)1705 ([facility] Unhold - Provider: Admin Adt) [...] (Given - Provider: Nelly German RN) 1222 ([facility] Hold - Provider: Admin Adt - Reason: Transfer to a Procedural area)1706 ([facility] Unhold - Provider: Admin Adt) [...] (See Alternative - Provider: Nelly German RN) 122 ([facility] Hold - Provider: Admin Adt - Reason: Transfer to a Procedural area)1706 ([facility] Unhold - Provider: Admin Adt) senna-docusate (Pericolace) 8.6-50 mg per tablet 2 tablet 2 tablet, Oral, 2 TIMES DAILY PRN, Starting on Sandra 09/24/23 at 0010, Until 10/10/23 at 1938, Constipation, Routine 1222 ([facility] Hold - Provider: Admin Adt - Reason: Transfer to a Procedural area)1706 ([facility] Unhold - Provider: Admin Adt) [...] , Routine, Indication for (Active or Suspected): DIRT SHOVELER/Meningitis And diphenhydrAMINE (Benadryl) (50 mg/mL) injection 25 mg (CANCELED)Jump to med 25 mg, Intravenous, EVERY 12 HOURS, First dose (after last modification) on Thu09/25/23 at 0300, Until Discontinued, Administer prior to each vancomycin dose, Routine Group 2: NPO diet (Give Meds) (CANCELED) DIET EFFECTIVE MIDNIGHT, Starting on Thu10/08/23 at 0005, Until Specified, Diet Restriction: NPO And sodium chloride 0.9% infusion (CANCELED)Jump to med 100 mL/hr, Intravenous, CONTINUOUS, Starting on Thu10/08/23 at 0000, Until Sandra 10/08/23 at 1730 [...] Routine documented in this encounter Care Teams Nsh Teacher Relationship Specialty Start Date End Date Peter Lebron PA [address] [place] [address] PCP - General Internal Medicine 08/21/22 documented as of this encounter
--- OUTSIDE RECORDS SUMMARY | 2024-02-29 15:42 | XMS_ITS | Encounter Summary ---
[facility] [place] [address] Care Team Providers Care Data Management Engineer Name Role Phone Peter Lebron Primary Care Provider [phone] Encounter Details Date Type Department Care Team (Latest Contact Info) Description 07/22/2023 Travel Social History Tobacco Use Types Packs/Day Years Used Date Smoking Tobacco: Never Smokeless Tobacco: Never Alcohol Use Standard Drinks/Week Comments No 0 (1 standard drink = 0.6 oz pur e alcohol) [facility] Utilities Answer Date Recorded In [...] a nursing home (including now)? No 07/03/2023 DH IPV [...] on filedocumented in this encounter Care Teams Data Management Engineer Relationship Specialty Start Date End Date Peter Lebron PA [address] [place] [address] PCP - General Internal Medicine 08/21/22 documented as of this encounter
--- OUTSIDE RECORDS SUMMARY | 2024-02-29 15:42 | XMS_ITS | Encounter Summary ---
Author Organization [facility] [place] [address] Care Team Providers Care Communication Center Operator Name Role Phone Peter Lebron Primary Care Provider [phone] Encounter Details Date Type Department Care Team (Late st Contact Info) Description 07/09/2023 Telephone [place] [id number] Caitlin Charles RN Social History Tobacco Use Types Packs/Day Years Used Date Smoking Tobacco: Never Smokeless Tobacco: Never Alcohol Use Standard Drinks/Week Comments No 0 (1 standard drink = 0.6 oz pur e alcohol) [facility] Utilities Answer Date Recorded In the past 12 months has e [employer], gas, oil, or water [employer] threatened to shut off services in your [...] in a half-way (including now)? No 07/03/2023 DH IPV Inpatient [...] encounter Miscellaneous Notes * Telephone Encounter - Caitlin Charles RN - 07/09/2023 10:23 AM EDT Incoming call this morning to the General Surgery nurses' line from Ever's mother Tracy. She reports he had to change out of his clothes this morning due to some bleeding near his umbilicus. He is s/p exploratory laparotomy for a small bowel obstruction on 07/03/23. Bleeding appears to have subsided, and I recommended he cover the area with gauze, as it's fairly common to have some oozing (should be progressively application integration architect in color). She denies any spreading redness or swelling. He is managing his pain with his current regimen, but does have continued RLQ soreness. Tracy will call if he develops worsening pain, continued bright red bleeding, purulent drainage or spreading redness around his incision. She was very appreciative of the call back. documented in this encounter Plan of Treatment Not on file documented as of this encounter Visit Diagnoses Not on filedocumented in this encounter Care Teams Communication Center Operator Relationship Specialty Start Date End Date Peter Lebron PA [address] [place] [address] PCP - General Internal Medicine 08/21/22 documented as of this encounter
--- OUTSIDE RECORDS SUMMARY | 2024-02-29 15:42 | XMS_ITS | Encounter Summary ---
Author [facility] [place] [address] Care Team Providers Care Addresser Name Role Phone Peter Lebron Primary Care Provider [phone] Encounter Details Date Type Department Care Team (Late st Contact Info) Description 07/11/2023 Telephone [place] [phone] Raphael Tejeda MD Social History Tobacco Use Types Packs/Day Years Used Date Smoking Tobacco: Never Smokeless Tobacco: Never Alcohol Use Standard Drinks/Week Comments No 0 (1 standard drink = 0.6 oz pur e alcohol) [facility] Utilities Answer Date Recorded In the past 12 months has e [employer], gas, oil, or water [id number] threatened to shut off services in your [...] place to sleep or slept in a prison (including now)? No 07/03/2023 DH IPV Inpatient [...] encounter Miscellaneous Notes * Telephone Encounter - Raphael Tejeda MD - 07/11/2023 8:26 PM EDT I returned the patient's call at 8:26 PM. Chapin Costa is a 52 y.o. male who is s/p exploratory laparotomy, lysis of adhesions small bowel resection for closed-loop small bowel obstruction with Dr. Frank Murray on 07/03/2023. Patient was discharged on 07/08/2023 with incisional wounds intact and healing appropriately. Mothernow calls to report bloody discharge from incisional wound with dressing changes. She quantifies this as minimal but concerning. She also reports adriana-incisional redness, pain and induration, and subjective fever with a Tmax of 99. She denies any chest pain or worsening abdominal pain. She also reports recent fatigue and poor p.o. intake/poor appetite since discharge. Given all these symptoms post discharge, I advised the patient to come to the ED for further evaluation. He lives an hour [place] half away and Chapin Costa and mother agrees with this plan. This note will be routed to the provider mentioned above. Raphael Tejeda MD documented in this encounter Plan of Treatment Not on file documented as of this encounter Visit Diagnoses Not on filedocumented in this encounter Care Teams Addresser Relationship Specialty Start Date End Date Peter Lebron PA [address] [facility] [address] [place] [address] PCP - General Internal Medicine 08/21/22 documented as of this encounter
--- OUTSIDE RECORDS SUMMARY | 2024-02-29 15:42 | XMS_ITS | Encounter Summary ---
Author Organization [facility] Address [facility] [address] Care Team Providers Care Torpedoman'S Mate Name Role Phone Peter Lebron Primary Care Provider [phone] Reason for Visit * Reason Comments Follow-up Encounter Details Date Type Department Care Team (Late st Contact Info) Description 07/23/2023 10:00 AM EDT Office [place] [address] Annalise Rivera, HYDROMETER FINISHER [facility] [place] [address] S/p small bowel obstruction; Abdominal pain, unspecified abdominal location Social History Tobacco Use Types Packs/Day Years Used Date Smoking Tobacco: Never Smokeless Tobacco: Never Alcohol Use Standard Drinks/Week Comments No 0 (1 standard drink = 0.6 oz pur e alcohol) [facility] Utilities Answer Date Recorded In the past 12 months has [employer], gas, oil, or water company threatened [...] Sign Reading Time Taken Comments Blood Pressure 111/79 07/23/2023 9:54 AM EDT Pulse 69 07/23/2023 9:54 AM EDT Temperature 36.3 ??C (97.3 ??F) 07/23/2023 9:54 AM ED T Respiratory Rate 16 07/23/2023 9:54 AM EDT Oxygen Saturation 99% 07/23/2023 9:54 AM EDT Inhaled Oxygen Concentration - - Weight 85.3 kg (188 lb) 07/23/2023 9:54 AM EDT Height 167.6 cm (5' 5.98) 07/23/2023 9:54 AM ED T Body Mass Index 30.36 07/23/2023 9:54 AM EDT documented in this encounter Progress Notes * Annalise Rivera, HYDROMETER FINISHER - 07/23/2023 10:00 AM EDT Chapin Costa presents to clinic today for RUQ pain and lack or appetite Ever is a 52 y.o. 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 During that admission general surgery was engaged for externalization of the abdominal component of the shunt, and thereafter reengaged as the patient developed a postoperative ileus with small bowel fecalization causing apparent obstructive symptoms. Additionally during that hospitalization IR aspirated intra-abdominal abscesses that were positive for Enterococcus faecalis. After he received p.o. contrast for his CT scan on that admission as wellas robust bowel regimen he resolves the stool burden and felt some resolution of this pain nausea. He thereafter underwent the ventriculopleural shunt creation and ultimately was discharged home. However over the fnext 3 days he had recurrence of central abdominal pain, as well as intermittent nausea, and emesis. CT scan was obtained in the emergency department that was concerning for possible obstruction for which general surgery was consulted. 07/02/13: Bowel resection small intestine single anastomosis-Trevor Findings: Dense interloop adhesions resulting in >3 hours of lysis of adhesions. Firm mass palpated in small bowel and 20 cm of jejunum was resected to remove the object. Bowel opened on the back table and a piece of broccoli was identified. Entire small bowel run from LOT to TI. Pathology: DIAGNOSIS A - Jejunum, excision: - Small intestine with acute and chronic serositis. - Margins appear viable. - Vegetable matter. 06/20/23: Removal of complete CSF shunt without replacement (Right)-Trevor Findings: Shunt identified and found to be disconnected. Distal/ intra-abdominal segment easily removed measuring 30 cm and containing the metal connecter. 7.5 cm of the cephalad portion of the shuntwas removed but broke under tension when trying to remove. Wound irrigated and closed. Pathology: DIAGNOSIS A - Explanted EVAPORATOR HELPER shunt catheter and attached soft tissue, excision: - Catheter identified (gross examination) - Associated dense fibrous connective tissue with calcifications Ever is accompanied by his mom Tracy, interview is conducted with both. Both report the following:Ever felt well after discharge on 07/08/23 until 07/10/23 when he developed RUQ pain, dull, achy in nature intermittent and lasting 20 min and resolves spontaneously, there is no association with eating. No aggravating or relieving factors. In addition he reports nausea with eating lasting approximately 20 min then resolving no vomiting. He says that since discharge he is able to eat only half of what he was eating before Otherwise no fevers, chills, sweats, vomiting. He is moving his bowels, denies diarrhea, he denies any urinary symptoms EXAM: GEN:non toxic appearing, skin warm dry HEENT:sclera clear non icteric, mucous membranes are pink and moist CARD:s1s2 rrr CHEST:CTA ant post resp reg even and non labored ABD:soft, tender over RUQ -right costal margin, incision well approximated there is no erythema, active or expressible drainage, no bulge with head lift BACK:Neg CVAT EXT:warm, no edema, calves are soft non edema VS: T:36.3 HR:69 RR:16 BP:111/79 SAO2:99% ra Labs: WBC:11.5 Hgb:14.6 Hct:44.7 Plat:299 Na:140 K:4.2 CL:104 CO2:22 Bun:8 Cre:1.06 Ca:9.6 Glu:106 TP:7.2 Alb:4.5 TB:0.4 AP:124 AST:14 ALT:30 Lip:22 CRP:3.8 Impression/plan: Labs reassuring however given Ever's complicated course will get CT CAP this was unable to be scheduled at so we will schedule it for him locally. Ever and his Mom understand that he I to come in for evaluation for any fever, worsening of symptoms or should he feel otherwise unwell over the interval Seen examined plan formulated with Dr Thibodeaux documented in this encounter Plan of Treatment Not on file documented as of this encounter Procedures Procedure Name Priority Date/Time Associated Diagnosis Comments CRP, ACUTE INFLAMMATION STAT 07/23/2023 10:48 AM EDT S/p small bowel obstruction Abdominal pain, unspecified abdominal location HEMOGRAM STAT 07/23/2023 10:48 AM EDT S/p small bowel obstruction Abdominal pain, unspecified abdominal location DIFFERENTIAL, AUTOMATED STAT 07/23/2023 10:48 AM EDT S/p small bowel obstruction Abdominal pain, unspecified abdominal location CBC (WITH DIFF) STAT 07/23/2023 10:48 AM EDT S/p small bowel obstruction Abdominal pain, unspecified abdominal location LIPASE STAT 07/23/2023 10:48 AM EDT S/p small bowel obstruction Abdominal pain, unspecified abdominal location COMPREHENSIVE METABOLIC PANEL STAT 07/23/2023 10:48 AM EDT S/p small bowel obstruction Abdominal pain, unspecified abdominal location documented in this encounter Results * (ABNORMAL) Differential, Automated (07/23/2023 10:48 AM EDT) Neutrophil % 54.7 % [facility] Neutrophil Absolute 6.30(H) 1.70 - 6.10 x10(3)/mc L [facility] Lymph % 35.6 % [facility] Lymphocytes Abs 4.1(H) 0.9 - 3.2 x10(3)/mc L [facility] Monocyte % 6.5 % [facility] Monocyte Abs 0.8 0.3 - 0.9 x10(3)/mc L [facility] Eos % 2.1 % [facility] Eosinophils Abs 0.2 0.0 - 0.4 x10(3)/mc L [facility] Basophil % 0.8 % [facility] Baso Absolute 0.1 0.0 - 0.1 x10(3)/mc L [facility] Immature Gran % 0.30 % [facility] Comment: Immature granulocytes(IG's)percentage and absolute count will include metamyelocytes, myelocytes, and promyelocytes. Blood smears from CBCs yielding IG's will be scanned manually for concordance. If this scan disagrees with the automated IG or if promyelocytes are noted, a manual differential will be performed. Immature Gran Absolute 0.03 0.00 - 0.04 x10(3)/mc L [facility] Blood 07/23/2023 10:4 8 AM EDT 07/23/2023 10:53 AM EDT Narrative Resulting Agency Comment Spec In Lab Annalise Gilmore Miguel HYDROMETER FINISHER HEMATOLOGY ORDERAB LES [facility] [place] [address] * (ABNORMAL) Hemogram (07/23/2023 10:48 AM EDT) White Blood Cell 11.5(H) 4.0 - 9.5 x10(3)/mc L [facility] Red Blood Cell 4.98 4.58 - 5.54 x10(6)/mc L [facility] Hemoglobin 14.6 13.7 - 16.5 g/dL [facility] Hematocrit 44.7 40.5 - 48.5 % [facility] Mean Cell Volume 89.8 82.9 - 93.1 fL [facility] Mean Cell Hemoglobin 29.3 27.5 - 32.1 pg [facility] Mean Cell Hemoglobin Concentration 32.7 32.0 - 35.7 g/dL [facility] Platelet 299 145 - 357 x10(3)/mc L [facility] RDW Standard Deviation 44.5 36.0 - 45.0 fL [facility] RDW coefficient of variation 13.8 11.4 - 13.8 % [facility] Mean Platelet Volume 9.3 7.6 - 12.9 fL [facility] NRBC% auto 0.0 % [facility] NRBC Absolute 0.000 0.000 - 0.000 x10(3)/mc L [facility] Blood 07/23/2023 10:4 8 AM EDT 07/23/2023 10:53 AM EDT Narrative Resulting Agency Comment Spec In Lab Annalise Rivera HYDROMETER FINISHER HEMATOLOGY ORDERAB LES Performing Organization Address [facility] de Phone Number [facility] [place] [address] * CRP, acute inflammation (07/23/2023 10:48 AM EDT) C-Reactive Protein 3.8 <=4.9 mg/L [facility] Blood 07/23/2023 10:4 8 AM EDT 07/23/2023 10:53 AM EDT Narrative Resulting Agency Comment Spec In Lab Annalise Rivera HYDROMETER FINISHER CHEMISTRY ORDERABL ES Performing Organization Address [facility] de Phone Number [facility] [place] [address] * Lipase (07/23/2023 10:48 AM EDT) Lipase 22 0 - 60 unit/L [facility] Blood 07/23/2023 10:4 8 AM EDT 07/23/2023 10:53 AM EDT Narrative Resulting Agency Comment Spec In Lab Annalise Rivera HYDROMETER FINISHER CHEMISTRY ORDERABL ES Performing Organization Address [facility] de Phone Number [facility] [place] [address] * (ABNORMAL) Comprehensive metabolic panel (non-fasting) (07/23/2023 10:48 AM EDT) Glucose 106 65 - 199 mg/dL [facility] Comment:Diabetes: >=200 mg/d L plus symptoms Blood Urea Nitrogen 8(L) 10 - 20 mg/dL [facility] Creatinine 1.06 0.80 - 1.50 mg/dL [facility] Sodium 140 135 - 145 mmol/L [facility] Potassium 4.2 3.5 - 5.0 mmol/L [facility] Comment: Please note: ??Patients with WBC >100,000 may have falsely elevated Potassium levels. ??For accurate Potassium quantification in these patients send serum separator tube (gold top) for subsequent determinations. ??Contact the Clinical Chemistry Laboratory if there are any questions. Chloride 104 98 - 107 mmol/L [facility] Carbon Dioxide 22 22 - 31 mmol/L [facility] Anion Gap 14 5 - 15 mmol/L [facility] Calcium 9.6 8.5 - 10.5 mg/dL [facility] Protein, Total 7.2 6.1 - 8.0 g/dL [facility] Albumin 4.5 3.2 - 5.2 g/dL [facility] Aspartate Aminotransferase 14 0 - 39 unit/L [facility] Alanine Aminotransferase 30 0 - 55 unit/L [facility] Alkaline Phosphatase 124 40 - 130 unit/L [facility] Bilirubin, Total 0.4 0.2 - 1.3 mg/dL [facility] Est Glomerular Filtration Rate 85 >=60 mL/min/1. 73 m?? [facility] Comment: This patient's [...] and symptoms in addition to eGFR. Blood 07/23/2023 10:4 8 AM EDT 07/23/2023 10:53 AM EDT Narrative Resulting Agency Comment Spec In Lab Annalise Rivera HYDROMETER FINISH[place] [address] documented in this encounter Visit Diagnoses Diagnosis S/p small bowel obstruction Personal history of other diseases of digestive system Abdominal pain, unspecified abdominal location documented in this encounter Care Teams Torpedoman'S Mate Relationship Specialty Start Date End Date Peter Lebron PA [address] [facility] [address] [place] [address] PCP - General Internal Medicine 08/21/22 documented as of this encounter
--- OUTSIDE RECORDS SUMMARY | 2024-02-29 15:42 | XMS_ITS | Encounter Summary ---
[facility] Organization [facility] [place] [address] Care Team Providers Care Multifocal Lens Inspector Name Role Phone Peter Lebron Primary Care Provider [phone] Encounter Details Date Type Department Care Team (Late st Contact Info) Description 07/21/2023 [place] [id number] Beryl Horn RN Social History Tobacco Use Types Packs/Day Years Used Date Smoking Tobacco: Never Smokeless Tobacco: Never Alcohol Use Standard Drinks/Week Comments No 0 (1 standard drink = 0.6 oz pur e alcohol) [facility] Utilities Answer Date Recorded In the past 12 months has e [employer], gas, oil, or water [employer] threatened to shut off services in your [...] Telephone Encounter - Beryl Horn RN - 07/21/2023 2:06 PM EDT Spoke to Ever who reports intermittent right chest pain since last week and becoming constant 8/10 pain since 07/18. He explained that he feels this Along his rib cage under his right arm. He reports that this pain makes it difficult to take a deep breath, especially when he's laying down. documented in this encounter Plan of Treatment Not on file documented as of this encounter Visit Diagnoses Not on filedocumented in this encounter Care Teams Multifocal Lens Inspector Relationship Specialty Start Date End Date Peter Lebron PA [address] [place] [address] PCP - General Internal Medicine 08/21/22 documented as of this encounter
--- OUTSIDE RECORDS SUMMARY | 2024-02-29 15:43 | XMS_ITS | Encounter Summary ---
Author Organization [facility] [place] [address] Care Team Providers Care Paleology Professor Name Role Phone Peter Lebron Primary Care Provider [phone] Reason for Visit * Auth/Cert (Routine) Specialty Diagnoses / Procedures Referred By Contac t Referred To Contact Diagnoses Small bowel obstruction Reuben Thibodeaux MD [facility] [place] [address] [facility] Referral ID Status Reason Start Date Expiration Date Visits Re quested Visits Authorized [id number] 1 1 Encounter Details Date Type Department Care Team (Late st Contact Info) Description 07/03/2023 2:23 PM EDT Anesthesia Event [place] [address] Aury Crespo MD [facility] [place] [address] Leighton Suarez MD [facility] [place] [address] Anesthesia Record Procedure Summary Procedure Name Responsible Anesthesiologist Anesthesia Start Time Anesthesia Stop Time @BOWEL RESECTION, SMALL INTESTINE SINGLE ANASTOMOSIS (WRVU 20.82) (Abdomen) Aury Crespo MD 07/03/23 1423 07/03/232020 Events Date Time Event Comment 07/03/2023 1225 1423 Start 1430 AN Verify 1435 An Start Data 1442 An Induction 1444 An Intubation 1459 Anesthesia Ready 1627 Break/Relief In I assumed ca re for Break Relief before which we: 1. Identified the patient 2. Identified the responsible provider(s) 3. Reviewed the pertinent medical history 4. Discussed the surgical plan and course 5. Reviewed intra-op anesthesia management and issues during anesthesia 6. Set expectations for the relief (and/or post-procedure) period 7. Allowed opportunity for questions and acknowledgement of understanding PIA Avelar 1710 Break/Relief Out 1810 Handoff Intra-procedure anesthesia care was transferred after review of the patient's history, current anesthetic/surgical status and procedural plan, anticipated issues and expected post-operative course (including disposition.) AURY CRESPO MD 2006 Extubation/LMA Out 2013 an stop data 2020 Recovery or ICU Handoff Candi ent care was transferred to the destination unit staff after review of the patient's medical history, current anesthetic/surgical status and plan, according to the Provider Handoff Checklist. 2020 Stop Meds Name Total fentaNYL 100 mcg IV Lidocaine 50 mg Propofol 200 mg Rocuronium 250 mg Ondansetron 8 mg Dexamethasone 8 mg succinylcholine 100 mg ceFAZolin 4 g HYDROmorphone 3.5 mg diphenhydrAMINE 25 mg dexmedeTOMIDine 24 mcg labetalol 7.5 mg propofol INF 1,119.96 mg sugammadex 400 mg lactated ringers 2,000 mL * Agents Name O2 * Blood No blood administrations on file. Lines, Drains, and Airways Type Details Placement Removal Incision 05/24/22; 0939; Righ t; occipital region; 09/24/23; 0330 05/24/22 0939 by Alexandria Howell RN 09/24/23 0330 by Ellie Riddle RN Incision 06/09/23; 1456; Righ t; abdomen; 09/24/23; 0330 06/09/23 1456 by Shivani Kelly RN 09/24/23 0330 by Ellie Riddle RN Incision 06/18/23; 1533; Righ t; lower quadrant; non-laparascopic puncture; Aspiration drainage W/ MD Arceo, MD Santana; 09/24/23; 0330 06/18/23 1533 by Trevor Sandoval RN 09/24/23 0330 by Ellie Riddle RN Incision 06/20/23; 1416; Righ t, upper; abdomen; 09/24/23; 0330 06/20/23 1416 by Maricel Feliciano RN 09/24/23 0330 by Ellie Riddle RN Incision 06/29/23; 1435; Righ t; head; 09/24/23; 0330 06/29/23 1435 by Aria Riddle RN 09/24/23 0330 by Ellie Riddle RN Incision 06/29/23; 1440; Righ t; chest; 09/24/23; 0330 06/29/23 1440 by Aria Riddle RN 09/24/23 0330 by Ellie Riddle RN Incision 06/29/23; 1450; Righ t; chest; 09/24/23; 0330 06/29/23 1450 by Aria Riddle RN 09/24/23 0330 by Ellie Riddle RN PIV 07/02/23; 1513; [id number] catheter system; 20 gauge; median cubital vein (antecubital fossa), right; Anatomical Landmarks; US Not Used; Daniel LEON; distraction, tolerated well, appears comfortable; 07/06/23; 0530 07/02/23 1513 by Daniel Armstrong RN 07/06/23 0530 by Claire Jeffrey LNA ETT Mask Ventilation: No t Attempted (0); ETT Type: Cuffed, Oral; ETT Size: 7.5 mm; Mac Blade: 4; Notes: Asleep, Pre-O2, RSI, Stylette; Attempts: 1; Laryngoscopy Grade: 1; ETT Placement Verified By: Auscultation, Capnometry, Visual; Secured at Teeth: 23 cm; Inserted by: Brandon Messer; Removal Date: 07/03/23; Removal Time: 200607/03/23 144 by Mik Messer CRNA 07/03/232006 by Mik Messer SOFTWARE SUPPORT ENGINEER Urethral Catheter 07/03/23; 1450; Genitourinary surgery, Abdominal surgery, Surgery longer than 2 hours, Need for intraoperative urine output monitoring; indwelling double lumen catheter; latex; 14; 1; 5; 10; 07/03/23; 1530 07/03/23 1450 by Ailyn Voss RN 07/03/23 1530 by Ailyn Voss RN PIV 07/03/23; 1454; 20 g auge; metacarpal vein (top of hand), right; Anatomical Landmarks; Brandon Gui; 07/08/23; 1207 07/03/23 1454 by Mik Messer, SOFTWARE SUPPORT ENGINEER 07/08/23 1207 by Shivani Seay LPN PIV 07/03/23; 1456; 18 g auge; median vein (underside of arm), left; Anatomical Landmarks; Kennedy Gallagher; 07/05/23; 1531 07/03/23 1456 by Mik Messer, SOFTWARE SUPPORT ENGINEER 07/05/23 1531 by Amadou Martinez RN Incision 07/03/23; 1511; midl ine; abdomen; 09/24/23; 0330 07/03/23 1511 by Ailyn Voss RN 09/24/23 0330 by Ellie Riddle RN NG/OG Tube 07/03/23; 1999; righ t nostril; gastric decompression; 65; Taped; removed by provider; 07/05/23; 1731 07/03/231999 by Og Kaye RN 07/05/23 1731 by Amadou Martinez RN Urethral Catheter 07/03/23; 2010; Abdo edson surgery, Surgery longer than 2 hours; indwelling double lumen catheter; 100% silicone; 14; inserted at this facility; drainage bag; 07/06/23; 1500 (Removed by the day shift RN) 07/03/232010 by Moira Garcia RN 07/06/23 1500 by Yessenia Candelario RN documented in this encounter Social History Tobacco Use Types Packs/Day Years Used Date Smoking Tobacco: Never Smokeless Tobacco: Never Alcohol Use Standard Drinks/Week Comments No 0 (1 standard drink = 0.6 oz pur e alcohol) [facility] Utilities Answer Date Recorded In the [...] in a long-term (including now)? No 07/03/2023 DH IPV Inpatient [...] OR Notes * Anesthesia Postprocedure Evaluation - Aury Crespo MD - 07/03/2023 10:48 PM EDT Department of Anesthesiology Post-procedure Note Patient: Chapin Costa Procedure Summary Date: 07/03/23 Room / Location: [address] MAIN OR Anesthesia Start: 1422 Anesthesia Stop: 2020 Procedure: @BOWEL RESECTION, SMALL INTESTINE SINGLE ANASTOMOSIS (VU 20.82) (Abdomen) Diagnosis: (SBO) Surgeons: Frank Murray MD Responsible Provider: Aury Crespo MD Anesthesia Type: general ASA Status: 3 All Anesthesia Providers: Anesthesiologist: Zoey Dewey MD; Aury Crespo MD SOFTWARE SUPPORT ENGINEER: Skye Perez CRNA; Mik Messer CRNA Vitals Value Taken Time BP 139/89 07/03/230 Temp 36.3 ??C (97.3 ??F) 07/03/232144 Pulse 101 07/03/235 Resp 14 07/03/232154 SpO2 92 % 07/03/232199 Pain Level 0 07/03/232017 Vitals shown include unfiled device data. Patient Location: PACU/[facility] Level of Consciousness: Conscious but Sleepy Pain Management: Satisfactory Analgesia PONV: None Cardiovascular Status: At Baseline and Hemodynamically Stable Respiratory Status: Supplemental O2 (NC or FM) Postoperative Fluid Status: Possible Anesthetic Complications: NONE apparent at time of evaluation Final Primary Anesthesia Type: General (The anesthetic type performed was the same as planned.) Comments: * Anesthesia Preprocedure Evaluation - Kennedy Gallagher MD - 07/03/2023 11:25 AM EDT Pre-Anesthesia Evaluation for: Chapin Costa a 52 y.o. male. Procedure(s): @EXPLORATORY LAPAROTOMY, WITH/WITHOUT BIOPSY(S) (VU 12.54) Patient Active Problem List Diagnosis Date Noted ??? *Small bowel obstruction 07/02/2023 ??? Shunt malfunction 06/09/2023 ??? Congenital hydrocephalus 05/24/2022 ??? Hydrocephalus 03/08/2020 ??? Seizures 03/23/2019 ??? Cervicalgia 01/22/2017 ??? Headache 01/15/2017 ??? Persistent headaches 01/14/2017 ??? S/P FOOD AND BEVERAGE ORDER CLERK shunt 01/12/2017 Past Medical History: Diagnosis Date ??? Depression [...] IR All Drainage Procedures Bentley Arceo MD [facility] INTERVENTIONL RAD ??? PRO ALVEOLOPLASTY W EXTRACTIONS, 4 OR MORE TEETH, PER QUADRANT N/A 10/18/2020 ALVEOPLASTY,IN CONJUNCTION WITH EXTRACTIONS,PER QUADRANT,ENT (WRVU 4.06) performed by Shan Rivero MD at [facility] OSC ??? PRO EXTRACTION, ERUPTED TOOTH OR EXPOSED ROOT N/A 10/18/2020 EXTRACTION, ERUPTED TOOTH OR EXPOSED ROOT (WRVU 0.62) performed by Shan Rivero MD at [facility] OSC ??? PRO IMPACT TOOTH REM BONY W/COMP N/A 10/18/2020 SURGICAL EXTRACTIONS, REMOVAL OF IMPACTED TOOTH, COMPLETELY BONY WITH UNUSUAL SURGICAL COMPLICATIONS (WRVU 2.91) performed by Shan Rivero MD at [facility] OSC ??? PRO IMPACT TOOTH REMOV COMP BONY N/A 10/18/2020 SURGICAL EXTRACTIONS, REMOVAL OF IMPACTED TOOTH, COMPLETELY BONY (WRVU 1.93) performed by Shan Rivero MD at [facility] OSC ??? PRO REMOVAL ERUPTED TOOTH WITH ELEVATION OF MUCOPERIOSTEAL FLAP Bilateral 10/18/2020 SURGICAL EXTRACTIONS REQUIRING ELEVATION OF MUCOPERIOSTEAL FLAP AND REMOVAL OF BONE OR SECTION OF TOOTH (WRVU 1.09) performed by Shan Rivero MD at [facility] OSC ??? PRO REMOVAL, COMPLETE CSF SHUNT, W/O REPLACE Right 06/20/2023 @REMOVAL OF COMPLETE CSF SHUNT, W/O REPLACEMENT (WRVU 7.38) [facility] ??? PRO REPLACEMENT/REVISION, CSF SHUNT Right 06/09/2023 REVISION OR REPLACEMENT CSF SHUNT (WRVU 11.43) performed by Rhoda Jimenez MD at [facility] MAIN OR ??? PRO REPLACEMENT/REVISION, CSF SHUNT Right 06/29/2023 REVISION OR REPLACEMENT CSF SHUNT (WRVU 11.43) performed by Rhoda Jimenez MD at [facility] CSI ??? PRO UNLISTED PROCEDURE NERVOUS SYSTEM Right 05/24/2022 EXPLORATION VENTRICULO-PERITONEAL SHUNT (WRVU 25.48) performed by Rhoda Jimenez MD at [facility] MAIN OR ??? SHOULDER SURGERY ??? ULNAR TUNNEL RELEASE Right ??? VENTRICULOPERITONEAL SHUNT Multiple revisions - ~46 prior revisions Social History Tobacco Use ??? Smoking status: Never ??? Smokeless tobacco: Never Substance Use Topics ??? Alcohol use: No Social History Substance and Sexual Activity Drug Use No Allergies Allergen Reactions ??? Latex Other reaction(s): hives with latex powdered gloves Other reaction(s): hives with latex powdered gloves ??? Penicillins Rash Pt reports taking PCN IV as a child while inpt. He developed a skin rash/hives. Denies any SOB, throat/lip swelling, or other sx at the time. Rxn resolved w/ d/c of med. He may have received amoxicillin as a child after this PCN rxn, without issue. He took cephalexin in 2006 for a outpt throat infxn without issue. Both these agents share side chains with PCN suggesting that he does not remain allergic to PCN at this point. Pt tolerated oral amox challenge on 06/22/23 & ampicillin-sulbactam on 06/23/23. ??? Tegaderm [Transparent Dressings] Itching and Other [...] Physical Exam: Preprocedure Vitals Current as of 07/03/23 1125 BP: 126/84 Pulse: Resp: 16 SpO2: 94 Temp: 36.8 ??C (98.2 ??F) Height: 167.6 cm (5' 6) (07/02/23) Weight: 87.2 kg (192 lb 3.2 oz) (07/02/23) BMI: 31.02 IBW: 63.8 kg (140 lb 9.2 oz) Last edited 07/03/23 0745 by RS Airway Assessment: Mallampati: III TM distance: >3 FB Neck ROM: full Cardiovascular Assessment: system normal Pulmonary Assessment: unlabored breathing Dental Assessment: (+) upper dentures and lower dentures Misc Assessment: IV access: Peripheral line Last Filed Perioperative Cognitive Screening None Anesthesia Plan: ASA 3 general, with a(n) intravenous induction Assessment: Chapin Costa is a 52 y.o. male with SBO, going to the OR for @EXPLORATORY LAPAROTOMY, WITH/WITHOUT BIOPSY(S) (WRVU 12.54) (Abdomen) with Dr. Murray and associates. PMH notable for: Cervicalgia, congenital hydrocephalus with s/p FOOD AND BEVERAGE ORDER CLERK shunt placement, psudoseizures/seizures, recently admitted to hospital ~2 weeks ago with externalization of his ventriculoperitonealshunt with ultimate conversion to a ventriculopleural shunt. Now with a SBO. EKG 06/19/23: NSR, nonspecific ST and T wave abnormality worse in inferior leads than seen on prior EKGs. Anterolateral leads t wave abnormality now evident. QT has shortened. Adjusct mask, grade 1 with Mac 4 previously Anesthetic Plan: GA with ETT Kennedy Gallagher MD [employer] Vice President Region - Other Informed Consent: Anesthetic plan and risks discussed with patient and mother. Anesthesia Screening documented in this encounter Plan of Treatment Not on file documented as of this encounter Visit Diagnoses Not on filedocumented in this encounter Administered Medications Inactive Administered Medications - up to 3 most recent administrations Medication Order MAR Action Action Date Dose Rate Site ceFAZolin (Ancef) (100 mg/mL) injection solution Intravenous, PRN, Starting on Thu07/03/23 at 1503, Until Thu07/03/23 at 2020, Anesthesia Intra-op, Routine Given 07/03/2023 7:01 PM EDT 2 g Given 07/03/2023 3:03 PM EDT 2 g dexAMETHasone (Decadron) injection Intravenous, PRN, Starting on Thu07/03/23 at 1513, Until Thu07/03/23 at 2020, Anesthesia Intra-op, Routine Given 07/03/2023 3:23 PM EDT 4 mg Given 07/03/2023 3:13 PM EDT 4 mg dexmedeTOMIDine (Precedex) (4 mcg/mL) bolus injection (Anesthsia) Intravenous, PRN, Starting on Thu07/03/23 at 1643, Until Thu07/03/23 at 2020, Anesthesia Intra-op, Routine Given 07/03/2023 6:56 PM EDT 8 mcg Given 07/03/2023 4:43 PM EDT 8 mcg Given 07/03/2023 2:39 PM EDT 8 mcg diphenhydrAMINE (Benadryl) (50 mg/mL) injection Intravenous, PRN, Starting on Thu07/03/23 at 1532, Until Thu07/03/23 at 2020, Anesthesia Intra-op, Routine Given 07/03/2023 3:32 PM EDT 25 mg fentaNYL (pf) (50 mcg/mL) multi-dose injection Intravenous, PRN, Starting on Thu07/03/23 at 1442, Until Thu07/03/23 at 2020, Anesthesia Intra-op, Routine Given 07/03/2023 2:42 PM EDT 100 mcg HYDROmorphone (Dilaudid) (2 mg/mL) multi-dose injection solution Intravenous, PRN, Starting on Thu07/03/23 at 1518, Until Thu07/03/23 at 2020, Anesthesia Intra-op, Routine Given 07/03/2023 8:04 PM EDT 1 mg Given 07/03/2023 7:01 PM EDT 0.5 mg Given 07/03/2023 4:07 PM EDT 1 mg labetaloL (Normodyne) (5 mg/mL) multi-dose injection Intravenous, PRN, Starting on Thu07/03/23 at 1903, Until Thu07/03/23 at 2020, Anesthesia Intra-op, Routine Given 07/03/2023 7:03 PM EDT 7.5 mg lactated ringers infusion Intravenous, CONTINUOUS PRN, Starting on Thu07/03/23 at 1437, Until Thu07/03/23 at 2020, Anesthesia Intra-op New Bag 07/03/2023 2:37 PM EDT lidocaine (pf) (Xylocaine) (20 mg/mL) 2% injection syringe Intravenous, PRN, Starting on Thu07/03/23 at 1440, Until Thu07/03/23 at 2020, Anesthesia Intra-op, Routine Given 07/03/2023 2:40 PM EDT 50 mg ondansetron (pf) (Zofran) (2 mg/mL) injection Intravenous, PRN, Starting on Thu07/03/23 at 1513, Until Thu07/03/23 at 2020, Anesthesia Intra-op, Routine Given 07/03/2023 7:53 PM EDT 4 mg Given 07/03/2023 3:13 PM EDT 4 mg propofoL (Diprivan) (10 mg/mL) infusion Intravenous, CONTINUOUS PRN, Starting on Thu07/03/23 at 1445, Until Thu07/03/23 at 2020, Anesthesia Intra-op, Routine New Bag 07/03/2023 2:45 PM EDT 50 mcg/kg/min 21.96 mL/hr propofoL (Diprivan) 10 mg/mL bolus injection (Anesthesia) Intravenous, PRN, Starting on Thu07/03/23 at 1442, Until Thu07/03/23 at 2020, Anesthesia Intra-op Given 07/03/2023 2:42 PM EDT 200 mg rocuronium (Zemuron) (10 mg/mL) multi-dose injection Intravenous, PRN, Starting on Thu07/03/23 at 1509, Until Thu07/03/23 at 2020, Anesthesia Intra-op, Routine Given 07/03/2023 7:25 PM EDT 20 mg Given 07/03/2023 7:01 PM EDT 30 mg Given 07/03/2023 5:27 PM EDT 50 mg succinylcholine (Anectine;Quelicin) (20 mg/mL) injection Intravenous, PRN, Starting on Thu07/03/23 at 1442, Until Thu07/03/23 at 2020, Anesthesia Intra-op, Routine Given 07/03/2023 2:42 PM EDT 100 mg sugammadex (Bridion) 100 mg/mL injection Intravenous, PRN, Starting on Thu07/03/23 at 2001, Until Thu07/03/23 at 2020, Anesthesia Intra-op, Routine Given 07/03/2023 8:01 PM EDT 400 mg documented in this encounter Care Teams Paleology Professor Relationship Specialty Start Date End Date Peter Lebron PA [address] [place] [address] PCP - General Internal Medicine 08/21/22 documented as of this encounter
--- OUTSIDE RECORDS SUMMARY | 2024-02-29 15:43 | XMS_ITS | Encounter Summary ---
Author Organization [facility] [place] [address] Care Team Providers Care Information Technology Project Manager Name Role Phone Peter Lebron Primary Care Provider Encounter Details Date Type Department Care Team (Late st Contact Info) Description 06/30/2023 [place] [id number] RaisaJose Rafael mart RN Social History Tobacco Use Types Packs/Day Years Used Date Smoking Tobacco: Never Smokeless Tobacco: Never Alcohol Use Standard Drinks/Week Comments No 0 (1 standard drink = 0.6 oz pur e alcohol) [facility] Utilities Answer Date Recorded In the past 12 months has e electric, gas, oil, or water company threatened to shut off services in your home? No 06/18/2023 Hunger Vital Sign Answer Date Recorded Within the past 12 months, y ou worried that your food would run out before you got the money to buy more. Never true 06/18/19 24 Within the past 12 months, t he food you bought just didn't last and you didn't have money to get more. Never true 06/18/2023 PRAPARE - Transportation Answer Date Re corded In the past 12 months, has l ack of transportation kept you from medical appointments or from getting medications? No 05/25 In the past 12 months, has l ack of transportation kept you from meetings, work, or from getting things needed for daily living? No 06/18/2023 Housing Stability Vital Sign Answer Judah e Recorded In the last 12 months, was t here a time when you were not able to pay the mortgage or rent on time? No 06/18/2023 In the last 12 months, how many places have you lived? 1 06/18/2023 In the last 12 months, was t here a time when you did not have a steady place to sleep or slept in a alf (including now)? No 06/18/2023 DH IPV Inpatient Questions Answer Date Recorded Does Anyone Try to Keep You From Having Contact with Others or Doing Things Outside Your Home? no 06/24/2023 Feels Threatened by Someone no 02/2023 Feels Unsafe at Home or Work/School no 06/24/2023 Physical Signs of Abuse Present no 06/24/2023 Sex and Gender Information Value Date Recorded Sex Assigned at Male 10/11/2020 1:38 PM EDT Gender Identity Male 01/18/2020 8:12 PM EST Sexual Orientation Straight 10/11/2020 1: 38 PM EDT documented as of this encounter Miscellaneous Notes * Telephone Encounter - Raisa, Jose Rafael Dillon RN - 06/30/2023 3:41 PM EDT Hot call Caller: Gladys [employer] Reason for call: They received prescription for Augmentin and have a penicillin allergy listen in his chart. Per 06/21 encounter, Patient reports taking penicillin IV as a child while admitted to the hospital. He states he believes he developed a skin rash and hives. He cannot described the exact features of the rash (raised lesions vs. red blotches). He denies any SOB, throat/lip swelling, or other symptoms at the time. He recalls the reaction resolved with discontinuation of the medication. He does not recall receiving any other treatment (e.g. epinephrine, antihistamines) at the time. He states he may have received amoxicillin as a child after this penicillin reaction, without issue. He also confirms he took an outpatient prescription for cephalexin in 2006 for a throat infection without issue (Rx noted in chart). Both these agents share side chains with penicillin suggesting that he does notremain allergic to penicillin at this point. Patient also given test dose of amoxicillin and ampicillin-sulbactam. ID recommended switch to Augmentin 875-125 mg p.o. twice daily for 3 to 4 weeks She will make note of this in his chart. documented in this encounter Plan of Treatment Not on file documented as of this encounter Visit Diagnoses Not on filedocumented in this encounter Care Teams Information Technology Project Manager Relationship Specialty Start Date End Date Peter Lebron PA [address] [facility] [address] [place] [address] PCP - General Internal Medicine 08/21/22 documented as of this encounter
--- OUTSIDE RECORDS SUMMARY | 2024-02-29 15:43 | XMS_ITS | Encounter Summary ---
[facility] [place] [address] Care Team Providers Care Nutrition Program Instructor Name Role Phone Peter Lebron Primary Care Provider [phone] Reason for Visit * Reason Comments Abdominal Pain * Auth/Cert (Routine) Specialty Diagnoses / Procedures Referred By Contac t Referred To Contact Diagnoses Small bowel obstruction Reuben Thibodeaux MD [facility] [place] [address] [facility] Referral ID Status Reason Start Date Expiration Date Visits Re quested Visits Authorized [id number] 1 1 Encounter Details Date Type Department Care Team (Late st Contact Info) Description 07/03/2023 12:40 PM EDT - 07/03/2023 3:40 PM EDT [place] [id number] Arely Murray MD [facility] [place] [address] @BOWEL RESECTION, SMALL INTESTINE SINGLE ANASTOMOSIS (WRVU 20.82) Social History Tobacco Use Types Packs/Day Years Used Date Smoking Tobacco: Never Smokeless Tobacco: Never Alcohol Use Standard Drinks/Week Comments No 0 (1 standard drink = 0.6 oz pur e alcohol) [facility] Utilities Answer Date Recorded In [...] Sign Reading Time Taken Comments Blood Pressure 131/87 07/03/2023 12:23 PM EDT Pulse 70 07/02/2023 9:47 PM EDT Temperature 36.6 ??C (97.9 ??F) 07/03/2023 12:23 PM E DT Respiratory Rate 17 07/03/2023 12:23 PM EDT Oxygen Saturation 94% 07/03/2023 12:23 PM EDT Inhaled Oxygen Concentration - - Weight 87.2 kg (192 lb 3.2 oz) 07/02/2023 9:47 P M EDT Height 167.6 cm (5' 6) 07/02/2023 9:47 PM EDT Body Mass Index 31.02 07/02/2023 9:47 PM EDT documented in this encounter Discharge Summaries * Skye Ty MD - 07/08/2023 11:05 AM EDT General Surgery Discharge Summary Name: Chapin Costa Date of : 1970 Attending: ARIA NUÑEZ BRUCE Date of Admission: 07/02/2023 Date of Discharge: 07/08/23 Reason for admission: Small bowel obstruction and post operative care following: Procedure(s): @BOWEL RESECTION, SMALL INTESTINE SINGLE ANASTOMOSIS (WRVU 20.82) Surgeon(s) and Role: * Arely Murray MD - Primary * Delgado Denis [...] function. 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 Passing gas. NGT removed and [...] pain was well controlled with oral painmedications, augustine catheter was removed, patient was voiding without difficulty, and wound(s) were intact and healing appropriately. Patient was having regular bowel movements, and tolerating a Regular diet. Vitals were within normal limits and patient was determined medically ready for discharge to home. Vital Signs Last value Range last 24hrs Temperature Temp: 36.6 ??C (97.9 ??F) Temp: [36.6 ??C (97.9 ??F)-37 ??C (98.6 ??F)] Heart Rate Heart Rate: 85 Heart Rate: [85] Blood Pressure BP: (!) 142/93 BP: (127-142)/(84-93) Respiratory Rate Resp: 18 Resp: [16-20] SpO2 SpO2: 97 % SpO2: [97 %-98 %] Physical Exam: General: NAD, resting comfortably, pleasant, conversant HEENT: PERRL, anicteric sclerae CVS: RRR Pulm: CTAB Abd: soft, nontender, non-distended, wounds clean dry and intact, isabella midline Skin: warm, dry Ext: warm and well perfused Neuro: CN 2-12 grossly intact, nonfocal,moving all four extremities spontaneously Mental Status: awake and alert, oriented x 3 Pertinent Lab Data: Recent Labs 07/08/238 07/07/239 07/06/23 0353 WBC 11.0* 11.0* 12.4* HGB 11.8* 11.3* 11.6* HCT 35.7* 34.9* 34.6* PLATELET 279 255 216 Recent Labs 07/08/2333707/07/239 07/06/23 0353 NA 138 141 138 K 3.7 3.7 3.7 CL 108* 108* 106 CO2 21* 21* 22 BUN 11 12 11 CREATININE 0.86 0.92 0.89 GLUCOSE 116 102 91 CALCIUM 8.6 8.6 8.5 MAGNESIUM 0.86 0.86 0.82 PHOS 2.7 3.3 2.0* Medications: Your Medications Continued medications, unchanged Dose Details acetaminophen 500 mg tablet Commonly known as: Tylenol Take 500 mg by mouth every 6 hours as needed. 500 mg Refills: 0 Aimovig Autoinjector 70 mg/mL Auto-Injector Inject 70 mg as directed every 30 days. On the of every month Generic drug: erenumab-aooe 70 mg Refills: 0 ARIPiprazole 10 mg tablet Commonly known as: Abilify Take 10 mg by mouth daily. 10 mg Refills: 0 atorvastatin 10 mg tablet Commonly known as: Lipitor Take 10 mg by mouth daily. 10 mg Refills: 0 calcium carbonate 200 mg calcium (500 mg) chewable tablet Commonly known as: TUMS Take 1 tablet by mouth every 6 hours as needed (Abdominal cramping). 500 mg Refills: 0 hydrOXYzine 25 mg tablet Commonly known as: Atarax Take 25 mg by mouth nightly. 25 mg Refills: 0 levothyroxine 25 mcg tablet Commonly known as: Synthroid Take 25 mcg by mouth daily. 25 mcg Refills: 0 metoprolol succinate XL 25 mg ER 24 hr tablet Commonly known as: Toprol-XL Take 25 mg by mouth daily. 25 mg Refills: [address] capsule Commonly known as: PriLOSEC Take 20 mg by mouth daily. 20 mg Refills: 0 polyethylene glycoL 17 gram oral powder packet Commonly known as: Miralax Take 17 g by mouth daily as needed. 17 g Quantity: 14 each Refills: 0 rizatriptan 10 mg tablet Commonly known as: Maxalt Take 1 tablet by mouth as needed for Migraine. 10 mg Quantity: 10 tablet Refills: 0 senna-docusate 8.6-50 mg Tablet Commonly known as: Pericolace Take 2 tablets by mouth 2 times daily as needed for Constipation. 2 tablet Quantity: 60 tablet Refills: 0 sertraline 100 mg tablet Commonly known as: Zoloft Take 200 mg by mouth daily. 200 mg Refills: 0 testosterone cypionate 200 mg/mL Oil injection Commonly known as: DepoTESTOSTERONE Cypionate Inject 250 mg into the muscle every 14 days. 250 mg Refills: 0 topiramate 25 mg tablet Commonly known as: Topamax Take 1 tablet by mouth 2 times daily. 25 mg Quantity: 60 tablet Refills: 5 Vitamin B-12 5,000 mcg Tablet, Sublingual Take 5,000 mcg by mouth daily. Generic drug: cyanocobalamin (vitamin B-12) 5,000 mcg Refills: 0 STOPPED Medications amoxicillin-clavulanate 875-125 mg tablet Commonly known as: Augmentin Allergies: Allergies Allergen Reactions Latex Other reaction(s): hives with latex powdered gloves Other reaction(s): hives with latex powdered gloves Penicillins Rash Pt reports taking PCN IV [...] challenge on 06/22/23 & ampicillin-sulbactam on 06/23/23. Tegaderm [Transparent Dressings] Itching and Other (See Comments) Patient needs no sting barrier wipes prior to Tegaderm application. Tolerates Tegaderm dressing post-application of skin barrier without itching/hives per patient. Vancomycin Hives and Itching Other reaction(s): Skin Rash Administering IV Benadryl prior to each Vancomycin dose seems to alleviate the reaction/allergy. Vancomycin Analogues Vancomycin Hcl Imaging: XR Abdomen 1 view (Generic) Result Date: 07/04/2023 EXAMINATION: XR ABDOMEN 1 VIEW (GENERIC) CLINICAL HISTORY: s/p NGT placement TECHNIQUE: Portable abdominal radiograph, single image COMPARISON: CT abdomen pelvis 07/02/2023 FINDINGS: Enteric tube projects below the diaphragm with tip and side port projecting over the stomach. Surgical clips project over the gallbladder fossa. EKG leads are present. Shunt catheter tubing projects over the right hemithorax. Linear calcification projecting over the right hemidiaphragm localizing to the subcutaneous fat on prior CT. Air-filled dilated loops of bowel within the lower abdomen measuring up to 6.2 cm in caliber. Skin isabella project over the lower abdomen. Enteric tube tip and side-port project over the stomach. Thank you for letting us participate in the care of this patient. If you are a health care provider and have any questions regarding this report, please contact the number below. For patients who have questions please contact the health health care sanitary technician that requested your imaging first. DOC: TELEMETRY STRIPS Result Date: 07/03/2023 Ordered by an unspecified provider. CT Abdomen & Pelvis w Contrast Result Date: 07/02/2023 EXAMINATION: CT ABDOMEN AND PELVIS W CONTRAST CLINICAL HISTORY: recurrent epigastric abdominal painand emesis, Pt with PMH of congenital hydrocephalus with recent shunt revision on 06/28 (ventriculopleural shunt placed due to complication with ventriculoperitoneal shunt), intraabdominal abscesses managed now on abx, and partial SBO on 06/27 TECHNIQUE: Helical CT of the abdomen and pelvis following the intravenous administration of contrast. Administered 113.0 ml of OMNIPAQUE 350.00 mg/ml. Oral contrast was not administered. COMPARISON: CT from 06/28/2023 FINDINGS: Lower chest: Interval placement of a shunt catheter in the right posterior pleural space with small right pleural effusion and mild ri ght basilar atelectasis. Liver: Normal size and overall attenuation. Stable small area of hypodensity in segment 4A most likely represents focal fatty infiltration. Bile ducts: Nondilated. Gallbladder: Surgically absent. Pancreas: Normal attenuation without ductal dilatation. Spleen: Normal. Adrenals: Normal. Kidneys: Normal. Urinary Bladder: Normal. Vasculature: No abdominal aortic aneurysm. Lymph Nodes: No enlarged lymph nodes. Bowel: Increased dilation of a segment of fluid-filled small bowel with probable proximal and distal transition points in the anterior left abdomen along the abdominal wall in the vicinity of an anterior abdominal wall metallic clip (series 4 image [id number] and series4 image 95-97). The more distal small bowel and colon are relatively decompressed. No pneumatosis or portal venous gas. Peritoneum and retroperitoneum: No free fluid or loculated fluid collection. Nopneumoperitoneum. Abdominal wall: No hernia. Small fat-containing inguinal hernias. Reproductive organs: Normal. Osseous structures: No suspicious lesions. 1. Increased dilation of a segment of mid small bowel in the left abdomen with proximal and distal transition points suspicious for a closed-loop obstruction. This could be related to anterior abdominal wall adhesions or possible internal hernia. 2. No intra-abdominal abscess or free air. 3. Intervertebral placement of a right pleural shunt catheter with small right pleural effusion and right basilar atelectasis. These findings were communicated to Dr. Nuñez by Dr. Graham at 4:15 PM on 07/02/2023 via secure chat. Thank you for letting us participate in the care of this patient. If you are a health care provider and have any questions regarding this report, please contact the number below. For patients who have questions please contact the health health care sanitary technician that requested your imaging first. 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 COMPARISON: Head CT 06/16/2023 FINDINGS: There is no acute intracranial hemorrhage or mass effect. Right frontal approach ventricular shunt is in stable position. Collapsed ventricular morphology is stable, with mild asymmetric distention of the temporal horn of the right lateral ventricle. There is no interval attenuation abnormality of the brain parenchyma. Nointerval osseous findings. Mastoids, middle ear spaces and imaged paranasal sinuses are normally aerated. Stable brain CT with attention to ventricular morphology. No acute findings. Thank you for letting us participate in the care of this patient. If you are a health care provider and have any questionsregarding this report, please contact the number below. For patients who have questions please contact the health health care sanitary technician that requested your imaging first. Shunt Series Result Date: 07/02/2023 EXAMINATION: XR SHUNT SERIES CLINICAL HISTORY: evaluate shunt TECHNIQUE: AP and lateral views of the head, chest and abdomen (7 images) COMPARISON: Radiographs June 15 and June 29, 2023 FINDINGS: Intracranial shunt tip is at midline via a high right frontal approach. The programmable shunt valve is not positioned to evaluate setting. Tubing along the right neck and anterior chest is intact with slight kink where it enters the upper right chest wall. Incomplete shunt segments are seen at the right neck and chest. No intra-abdominal shunt segment is seen. Several surgical clips in the abdomen. No fracture. Lungs are clear. A single left upper quadrant loop of small bowel measures 3.7 cm, otherwise nonobstructive bowel gas pattern. Proximal shunt catheter tubing is well delineated and intact to the level of mid chest, but its distal and abdominal segments are not identified. This is based on patient body habitus and portable radiograph exposure. Of note, a CT abdomen pelvis has been ordered. Thank you for letting us participate in the care of this patient. If you are a health care provider and have any questions regarding this report, please contact the number below. For patients who have questions please contact the health health care sanitary technician that requested your imaging first. Electronically signed by: Emerita Bernstein MD, [facility] ([phone]), at 07/02/2023 3:54 PM XR Shunt Series Result Date: 06/30/2023 EXAMINATION: XR SHUNT SERIES CLINICAL HISTORY: postop distal catheter replacement to pleural space TECHNIQUE: AP and lateral head, chest and abdomen radiographs (7 images) COMPARISON: X-ray shunt series June 16, 2023 FINDINGS: Proximal shunt tubing tip is at midline via a high right frontal approach. The programmable valve is not positioned to evaluate setting. Catheter tubing around the right neck and anterior chest is intact, tip in the pleura, apparently posteriorly. Orphan catheter tubing at the medial right neck and anterior chest wall is unchanged. There are surgical clips in the abdomen without residual tubing. No fracture. Smoothly corticated craniotomies. The patient is edentulous. Joints are aligned at the shoulders, spine and sacroiliac joints. No focal soft tissue abnormality. Replaced, intact right ventriculopleural drain catheter. Thank you for letting us participate in the care of this patient. If you are a health care provider and have any questions regarding this report, please contact the number below. For patients who have questions please contact the health health care sanitary technician that requested your imaging first. Electronically signed by: Emerita Bernstein MD, [facility] ([phone]), at 06/30/2023 9:07 AM XR Chest One View Result Date: 06/30/2023 EXAMINATION: XR CHEST ONE VIEW CLINICAL HISTORY: postop pleural catheter placement, assess for PTX TECHNIQUE: 1 view of the chest COMPARISON: 08/24/2022 FINDINGS: Ventriculopleural shunt catheter in place Decreased lung volumes compared to prior. The cardiac silhouette is stable. No pleural effusion or pneumothorax. Ventriculopleural shunt catheter in place. No pneumothorax. Thank you for letting us participate inthe care of this patient. If you are a health care provider and have any questions regarding this report, please contact the number below. For patients who have questions please contact the health health care sanitary technician that requested your imaging first. DOC: TELEMETRY STRIPS Result Date: 06/29/2023 Ordered by an unspecified provider. SCAN DOC: TELEMETRY STRIPS Result Date: 06/29/2023 Ordered by an unspecified provider. SCAN DOC: TELEMETRY STRIPS Result Date: 06/29/2023 Ordered by an unspecified provider. SCAN DOC: TELEMETRY STRIPS Result Date: 06/28/2023 Ordered by an unspecified provider. CT Abdomen & Pelvis w Contrast Result Date: 06/28/2023 EXAMINATION: CT ABDOMEN AND PELVIS W CONTRAST CLINICAL HISTORY: looking for intra-abdominal abscessin setting of ileus, vomiting, increasing WBC TECHNIQUE: Helical CT of the abdomen and pelvis following the intravenous administration of contrast. Administered 113.0 ml of OMNIPAQUE 350.00 mg/ml. Oral contrast was administered. COMPARISON: CT abdomen pelvis with contrast 06/16/2023 FINDINGS: Lower chest: Stable sub-6 mm right lateral middle lobe and right posterior lower lobe nodules (series 8, images 24, 33 and 100). There is an additional pleural- based sub-6 mm nodule in the left anteromediallower lobe (series 8, image 25). Bibasilar atelectasis. The heart is normal in size. No pericardialeffusion. Liver: Normal size and attenuation without lesions. Small area of hypodensity in segment 4A (series 8, image 195) likely represents benign fatty infiltration. Bile ducts: Nondilated. Gallbladder: Surgically absent. Pancreas: Normal attenuation without ductal dilatation. Spleen: Normal. Adrenals: Normal. Kidneys: Symmetric nephrograms. No suspicious lesions. No calculi or collecting system dilatation. Urinary Bladder: Normal. Vasculature: No abdominal aortic aneurysm. Lymph Nodes: No enlarged lymph nodes. Bowel: Dilated loops of contrast-filled small bowel in the left hemiabdomen measuring up to 4.3 cm in diameter to a segment containing inspissated fecalized material distal to which there is abrupt caliber transition. Air-fluid levels are seen in these dilated loops of small bowel and in the stomach. The colon is decompressed. Peritoneum and retroperitoneum: The intra-abdominal ventriculoperitoneal shunt has been externalized. There is a small amount of enhancement at the site of the previously described triangular-shaped intra-abdominal fluid collection (series 3, image 56). No definitive intra-abdominal abscess is visualized. Abdominal wall: Decreased size of right lower chest wall/upper abdominal wall abscess (series 3, image 35). Additional sites of soft tissue gasare seen in the right lower abdomen (series 3, image 117 and 124). Bilateral fat-containing inguinal hernias. Reproductive organs: Normal. Osseous structures: No suspicious lesions. 1. No new intra-abdominal or pelvic abscess. 2. Small residual soft tissue enhancement at the site of the previously described intra-abdominal abscess. 3. Decreased size of abdominal wall soft tissueabscesses. 4. Obstructing mid small bowel fecalized material. 5. Stable pulmonary nodules. Unlikelyto be clinically significant in the absence of known metastatic disease. I have personally reviewedthe image(s) and the resident's interpretation and agree with the findings, Kandi Duarte MD at 06/28/2023 10:35 AM Thank you for letting us participate in the care of this patient. If you are a health care provider and have any questions regarding this report, please contact the number below. For patients who have questions please contact the health health care sanitary technician that requested your imaging first. Abdomen Flat & Upright Result Date: 06/27/2023 EXAMINATION: XR ABDOMEN FLAT AND UPRIGHT CLINICAL HISTORY: N/V, eval for obstruction vs ileus (prior KUB limited). Please obtain dependent and nondependent views TECHNIQUE: AP supine and upright abdominal radiographs COMPARISON: Abdominal radiographs 06/27/2023 FINDINGS: Partially imaged abandoned catheter fragments overlying both hemidiaphragms. Imaged bowel loops are nondilated. Scattered air-fluid levels. No subphrenic free air on upright radiographs. Surgical clips project over the right lower quadrant and left lower quadrant. No displaced fractures. Ileus. No perforation. No obstruction. I have personally reviewed the image(s) and the resident's interpretation and agree with the findings, Kandi Duarte MD at 06/27/2023 8:45 PM Thank you for letting us participate in the care of this patient. If you are a health care provider and have any questionsregarding this report, please contact the number below. For patients who have questions please contact the health health care sanitary technician that requested your imaging first. Abdomen 1 view (Generic) Result Date: 06/27/2023 EXAMINATION: XR ABDOMEN 1 VIEW (GENERIC) CLINICAL HISTORY: Please obtain upright. Assess for intra-abdominal pathology with recent intra-abdominal infection and new emesis/bloating. TECHNIQUE: AP abdominal radiograph (2 images) COMPARISON: CT abdomen pelvis 06/16/2023 FINDINGS: The lower abdomen andpelvis are excluded from the [id number]. Imaged bowel loops are nondilated. No free air. Surgical clips project over the right upper quadrant and left hemiabdomen. No displaced fractures. Nonobstructive bowel gas pattern with note of incomplete visualization of the lower abdomen and pelvis. No subphrenic free air. I have personally reviewed the image(s) and the resident's interpretation and agree with the findings, Kandi Duarte MD at 06/27/2023 7:36 PM Thank you for letting us participate in the care of this patient. If you are a health care provider and have any questions regarding this report, please contact the number below. For patients who have questions please contact the health health care sanitary technician that requested your imaging first. DOC: TELEMETRY STRIPS Result Date: 06/25/2023 Ordered by an unspecified provider. SCAN DOC: TELEMETRY STRIPS Result Date: 06/24/2023 Ordered by an unspecified provider. SCAN DOC: TELEMETRY STRIPS Result Date: 06/23/2023 Ordered by an unspecified provider. SCAN DOC: TELEMETRY STRIPS Result Date: 06/22/2023 Ordered by an unspecified provider. SCAN DOC: TELEMETRY STRIPS Result Date: 06/20/2023 Ordered by an unspecified provider. SCAN DOC: TELEMETRY STRIPS Result Date: 06/19/2023 Ordered by an unspecified provider. IR All Drainage Procedures Result Date: 06/18/2023 Preoperative Diagnosis: Small fluid collection following CSF shunt revision. Postoperative Diagnosis: Same Procedure Performed: Ultrasound-guided aspiration abdominal wall. Operators: Bentley Arceo MD, Attending Estimated Blood Loss: None. Anesthesia: 1. 1% lidocaine, local. The patient was informed of the risks, benefits, and alternatives to the procedure and gave written consent, which was then placed in the chart. Appropriate time-out was performed prior to the procedure. Description of Procedure: All elements of maximal sterile barrier technique were met including cap, mask, sterile gown, sterile gloves, large sterile sheet, hand hygiene and 2% chlorhexidine for cutaneous antisepsis.The abdomen was prepped and draped in the usual sterile fashion. Local anesthetic was administered.Using ultrasound guidance, a 21-gauge needle was advanced into the small fluid collection adjacent to the CSF shunt. This appeared less than 6 mm by ultrasound. Approximately 1 cc could be aspirated.The needle was removed. The patient tolerated the procedure well. Findings: Tiny fluid collection ad jacent to CSF shunt repair. Impression: Tiny fluid collection adjacent to the CSF shunt repair. This was aspirated and sent for various labs as specified by the referring physician. I, the attending Interventional Radiologist performed the entire procedure. SCAN DOC: TELEMETRY STRIPS Result Date: 06/18/2023 Ordered by an unspecified provider. CT Abdomen & Pelvis w Contrast Result Date: 06/16/2023 EXAMINATION: CT ABDOMEN AND PELVIS W CONTRAST CLINICAL HISTORY: Abdominal abscess/infection suspected recent shunt revision, worsening abd pain, leukocytosis, mild diffuse tenderness worse at sunt incision site. TECHNIQUE: Helical CT of the abdomen and pelvis following the intravenous administration of contrast. Administered 83.0 ml of OMNIPAQUE 350.00 mg/ml. Oral contrast was not administered. COMPARISON: 06/06/2023 CT, 06/16/2023 radiograph FINDINGS: Lower chest: No basilar pleural or pericardial effusion. Bilateral lower lobe atelectasis. Liver: Normal size and attenuation with patent hepatic and portal veins. A subcentimeter ill-defined low-attenuation lesion in the subcapsular aspect of the left lobe cannot be characterized. Bile ducts: Nondilated. Gallbladder: Absent Pancreas: Normal attenuation without ductal dilatation. Spleen: Borderline enlarged, measuring 13.7 cm. No lesions. Adrenals: Normal. Kidneys: Symmetric nephrograms without lesions, hydronephrosis, or urolithiasis. Urinary Bladder: Mildly distended. No wall thickening or calculi. Vasculature: No abdominal aortic aneurysm. Lymph Nodes: No enlarged lymph nodes. Bowel: Limited assessment given the lack of oral contrast. No dilated small or large bowel loops or bowel wall thickening. Normal terminal ileum. The appendix is diminutive. Peritoneum and retroperitoneum: The intraperitoneal portion of the shunt catheterterminates in the mid upper abdomen and there is a triangular region of mesenteric fat stranding surrounding the catheter tip as well as a triangular-shaped, 2.7 cm peripherally enhancing fluid collection (series 3 image 59). The course of the catheter abuts a loop of small bowel. No free intraperitoneal air. No ascites. Abdominal wall: Shunt catheter tubing descends in the subcutaneous fat of the right lower chest and upper abdomen, and there is a 3.3 cm peripherally enhancing fluid collectionwithin the subcutaneous fat of the right upper quadrant surrounding the catheter at the point of catheter discontinuity. There are moderate inflammatory changes surrounding this (series 3 images 51-6). The discontinuity of the catheter measures 13 mm in length and occurs just cranial to a metallic connector. There is a tiny epigastric ventral hernia containing fat. Bilateral fat-containing inguinal hernias. Reproductive organs: Normal. Osseous structures: No suspicious lytic or sclerotic osseous lesions. 1. Interval revision of the shunt catheter, [...] area suspicious for abscess with surrounding cellulitis. Thank you for lettingus participate in the care of this patient. If you are a health care provider and have any questions regarding this report, please contact the number below. For patients who have questions please contact the health health care sanitary technician that requested your imaging first. Shunt Series Result Date: 06/16/2023 EXAMINATION: XR SHUNT SERIES CLINICAL HISTORY: recent revision recent revision, new abdominal pain,headache. TECHNIQUE: Multiple AP and lateral views of skull, chest, abdomen. COMPARISON: Radiographshunt series 06/09/2023 FINDINGS: Right frontal approach STEELSCOPE OPERATOR shunt catheter, with the intracranial portion terminating in the midline the extracranial portion courses along the right side of the neck al maxwell the anterior chest wall. On the lateral projection of the abdomen, there is a focal discontinuity of the catheter as it enters the abdomen, resulting in a 2.3 cm gap. The intra-abdominal portion of the catheter, courses toward the right lower quadrant terminates in the upper midline abdomen. Nodiscontinuity of the intra-abdominal portion of the catheter. Unchanged back to catheter/tubing in the anterior chest wall. No acute osseous finding. No focal airspace disease. Nonspecific bowel gas pattern. Cholecystectomy clips Right frontal approach STEELSCOPE OPERATOR shunt catheter with focal discontinuity at the segment where it enters the abdomen with 2.3 cm gap. Aside from this, the remaining catheter are intact Thank you for letting us participate in the care of this patient. If you are a health care provider and have any questionsregarding this report, please contact the number below. For patients who have questions please contact the health health care sanitary technician that requested your imaging first. Head wo Contrast (Generic) Result Date: 06/16/2023 EXAMINATION: CT HEAD WO CONTRAST (GENERIC) CLINICAL HISTORY: headache, shunt new headache, recent shunt revision, no focal deficits, for shunt eval TECHNIQUE: CT head performed without intravenous contrast administration. COMPARISON: CT head 06/08/2023 FINDINGS: No acute intracranial hemorrhage, mass, mass effect, hydrocephalus, midline shift, or acute infarction. A right frontal ventriculoperitoneal shunt catheter is stable in position. Mild linear encephalomalacia along a prior right parietal shunt tract is again seen. The osseous structures are stable including bilateral frontal and right parietal gala hole craniotomy changes and a partial right temporal craniectomy. Stable examination with no hydrocephalus or other acute abnormality. Thank you for letting us participate in the care of this patient. If you are a health care provider and have any questions regarding this report, please contact the number below. For patients who have questions please contact the health health care sanitary technician that requested your imaging first. Shunt Series Result Date: 06/10/2023 EXAMINATION: XR SHUNT SERIES CLINICAL HISTORY: postop VPS distal catheter repair (as entered by ordering provider in the order requisition) TECHNIQUE: AP and lateral views of the skull. AP and lateral views the chest. AP and lateral views of the abdomen. COMPARISON: CT of the head June 08, 2023. Shunt series June 08, 2023. FINDINGS: There is a right frontal approach ventriculoperitoneal shunt catheter. There is an expected lucent component around the shunt valve. The catheter tubing courses along the soft tissues of the right neck and over the anterior right chest wall and anterior abdominal wall. The patient catheter enters the abdominal cavity at the mid abdominal level and terminates with its tip over the upper central abdomen. Surgical clips project over the abdominal cavity. Similar to the prior study, there is an orphaned tubing along the anterior chest wall. No dilated loops ofbowel in the visualized portions of the abdomen. Visualized lung tony are clear. 1. Ventriculoperitoneal shunt catheter with no radiographic evidence of discontinuity of the catheter tubing. Thank you for letting us participate in the care of this patient. If you are a health care provider and have any questions regarding this report, please contact the number below. For patients who have questions please contact the health health care sanitary technician that requested your imaging first. DOC: TELEMETRY STRIPS Result Date: 06/09/2023 Ordered by an unspecified provider. Request For 2nd Read CT Abdomen & Pelvis Result Date: 06/09/2023 EXAMINATION: REQUEST FOR 2ND READ CT ABDOMEN AND PELVIS CLINICAL HISTORY: abdominal pain; Sending Institution [facility]; Date of exam [id number]; I believe a reinterpretation of this exam may alter care of Patient. Yes TECHNIQUE: Reinterpretation of CT abdomen pelvis without intravenous [facility] on 06/06/2023 at 1350 hours. COMPARISON: Shunt study 06/08/2023 FINDINGS: The absence of intravenous contrast limits the evaluation of solid viscera and vasculature. Lower chest: Punctate calcified granuloma in the right lower lobe. Liver: Normal. Bile ducts:Nondilated. Gallbladder: Surgically absent. Pancreas: Normal. Spleen: Normal. Adrenals: Normal. Kidneys/ureters: Normal. Urinary Bladder: Normal. Vasculature: No aneurysm. Lymph nodes: No enlarged lymph nodes. Bowel: Nondilated, no inflammatory changes. Peritoneum and mesentery: The distal tip of the ventricular peritoneal shunt terminates in the left upper quadrant of the abdomen. A metallic clip is present in the left omentum. Abdominal wall: STEELSCOPE OPERATOR shunt is fractured in the right upper abdominalwall, (series 4 image 94). STEELSCOPE OPERATOR shunt catheter enters the peritoneal space through the right rectus abdominal muscle. Bilateral small fat-containing inguinal hernias. Reproductive organs: Normal. Osseous structures: No suspicious lesions. Mild degenerative changes in the lumbar spine. 1. Fractured STEELSCOPE OPERATOR shunt catheter in the subcutaneous tissues of right anterior abdominal wall. 2. No acute intra-abdominal/intrapelvic findings. Preliminary report signed by: Homer Flowers at 06/09/2023 6:52 AM I have personally reviewed the image(s) and the resident's interpretation and agree with the findings, Kierra Newsome MD at 06/09/2023 7:44 AM Thank you for letting us participate in the care of this patient. If you are a health care provider and have any questions regarding this report, please contact the number below. For patients who have questions please contact the health health care sanitary technician that requested your imaging first. Head wo Contrast (Generic) Result Date: 06/08/2023 EXAMINATION: CT HEAD WO CONTRAST (GENERIC) CLINICAL HISTORY: shunt malfunction TECHNIQUE: CT Head was performed without contrast COMPARISON: CTA of the brain 10/13/2022 and 09/08/2022 FINDINGS: The calvarium demonstrates a right frontal gala hole through which catheter passes, to cross the midline atthe level of foramen of Gutiérrez. 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 No intracranial hemorrhage is identified. A right temporal craniotomy is noted. Dilatation of the right temporal horn appearsunchanged from 10/13/2022. Otherwise the ventricles show no cyst significant enlargement and in factthere are small similar in appearance to the study of 10/13/2022. No intracranial hemorrhage is identified. No large vascular territory infarct is seen. Right frontal shunt tube appears generally unchanged in position. Right temporal craniotomy unchanged. Dilatation of the right temporal horn is stable when compared with 10/13/2022. Otherwise the ventricles are decompressed. No intracranial hemorrhage or mass is identified. Thank you for letting us p articipate in the care of this patient. If you are a health care provider and have any questions regarding this report, please contact the number below. For patients who have questions please contactthe health health care sanitary technician that requested your imaging first. Shunt Series Result Date: 06/08/2023 EXAMINATION: XR SHUNT SERIES CLINICAL HISTORY: shunt malfunction TECHNIQUE: Frontal and lateral views of the skull, chest, abdomen COMPARISON: Shunt series 06/06/2023 FINDINGS/IMPRESSION: Shunt catheter discontinuity/fracture at the segment projecting over the RIGHTupper abdomen. Thank you for letting us participate in the care of this patient. If you are a health care provider and have any questions regarding this report, please contact the number below. For patients who have questions please contact the health health care sanitary technician that requested your imaging first. Electronically signed by: Santana Jean[facility]Baptiste [facility] ([phone]), at 06/08/2023 6:47 PM Outpatient Services/Studies: No discharge procedures on file. PLAN: - Follow up with surgery in 3-4 weeks - Staple removal in 1 week, will coincide with suture removal per neurosurgery - Had previous follow up scheduled with infectious disease, but no longer indicated now that he hassource control after surgery. Spoke with infectious disease about this. Disposition: Home Condition at discharge: Stable Instructions Given to Patient at Discharge: Patient Instructions Discharge Instructions You were were admitted and treated for the following diagnosis: small bowel obstruction. The obstructed part of your bowel was removed and your small intestine was reattached. Make sure to take your Miralax as needed to have regular bowel movements. CALL YOUR PHYSICIAN IF: You have a fever greater than 101F You have diarrhea or vomiting for >24 hours, or stop having bowel movements and passing flatus You have worsening pain, not controlled with your pain medication. You develop redness, swelling, or new drainage from your wounds Follow up: Future Appointments Date Time Provider Department Center 07/15/2023 12:00 PM NURSE, GENERAL SURGERY [facility] 07/15/2023 1:20 PM NURSE, NEUROSURGERY [facility] [id number] 07/15/2023 2:30 PM Valdo Awan MD [facility] ID [id number] [facility] 07/29/2023 12:00 PM Annalise Rivera, LIZA [facility] 08/13/2023 11:40 AM Cl Atkins PA [facility] [id number] Pain control: Non-steroidal anti-inflammatories (NSAIDS) such as aspirin, Aleve and ibuprofen (Advil, Motrin) aremedications that reduce pain and inflammation. To reduce your chance of side effects, it is recommended that you use Tylenol as needed for pain and then NSAIDs. Alternative means of pain relief such as rest and relaxation, positioning, as well as decreasing stimulants such as coffee, tea, soft drinks, and nicotine may also help to alleviate pain. If you continue to experience significant pain 4-5 days after your discharge, it may be necessary to be re-evaluated by your physician. Driving Restrictions: - No driving if you are too sore to enter or exit your vehicle comfortably, or if you are too sore to easily check your blind spot. No driving while using prescription pain medications Activities: - Increase your activity slowly. If it hurts don't do it, but try again the following day. - You may tire easily, so frequent naps may be necessary. - Talk with your doctor about when you can return to work or school. - You may take a shower but have someone nearby in case you need help. Diet: Eat a well-balanced diet. Fresh fruits, vegetables and fiber-containing foods are recommended. Thiswill assist in wound healing. Recommendations: - Take it easy for two weeks. Remember, If it hurts, don't do it. - Take several slow, short walks each day for the first two weeks, and gradually increase your distance. We recommend at least 4 times a day. Wound Care: - You can shower per usual routine - Do not submerge wounds under water (avoid spas, pools and bathtubs) until fully healed. - Do not use creams, oils, or ointments on the wound. - See follow-up appointments for removal of sutures/isabella. This will be at a 1 week nursing appointment. Comfort: - Some soreness can be expected. - Take your pain medication as needed and prescribed. - Taper use of pain medication as pain lessens. Follow up appointments: 1. You will have follow-up appointments at [facility] as indicated in the ???Future Appointments and Orders?? section of your discharge summary. 2. If you do not have a scheduled follow-up appointment listed at the time of discharge, you will be notified of your scheduled appointment on the next business day. Please call [phone] if you do not hear from us by that time, as your timely follow-up is very important to us. Your care was managed by the Trauma and Acute Care Surgery Team at [facility]. If you have any questions or concerns, please feel free to contact us. Provider Contact Information: General Surgery: [facility] (after business hours): Primary Care Physician: MARVA Gordon General Instructions None Future Appointments and Orders Future Appointments and Orders Future Appointments Provider Department Dept Phone 07/15/2023 12:00 PM NURSE, GENERAL SURGERY General Surgery at [facility] Arrive at: Manager Underwriting Area 07/15/2023 1:20 PM NURSE, NEUROSURGERY Neurosurgery at [facility] Arrive at: Manager Underwriting Area [phone] 07/15/2023 2:30 PM Valdo Awan MD Infectious Disease at [facility] Arrive at: Manager Underwriting Area [phone] 07/29/2023 12:00 PM Annalise Rivera APRN General Surgery at [facility] Arrive at: Manager Underwriting Area 4L [phone] 08/13/2023 11:40 AM Cl Atkins PA Neurosurgery at [facility] Arrive at: Manager Underwriting Area [phone] Signed: Skye Ty MD General Surgery [facility] pager [phone] Primary Mary Lou Physician: MARVA Gordon DR [address] / [facility] [id number] Associated attestation - Reuben Thibodeaux MD - 07/09/2023 1:31 PM EDT I have seen the patient in person and reviewed the above history and I agree with the details as written. The assessment and plan were formulated in discussion with me and I agree with them as documented. SBO was due to adhesive disease, resolved with operative intervention with lysis of adhesions and small bowel resection Reuben Thibodeaux MD documented in this encounter Discharge Instructions * Patient Instructions* Skye Ty MD - 07/07/2023 11:22 AM EDT Discharge Instructions You were were admitted and treated for the following diagnosis: small bowel obstruction. The obstructed part of your bowel was removed and your small intestine was reattached. Make sure to take your Miralax as needed to have regular bowel movements. CALL YOUR PHYSICIAN IF: You have a fever greater than 101F You have diarrhea or vomiting for >24 hours, or stop having bowel movements and passing flatus You have worsening pain, not controlled with your pain medication. You develop redness, swelling, or new drainage from your wounds Follow up: Future Appointments Date Time Provider Department Center 07/15/2023 12:00 PM NURSE, GENERAL SURGERY [facility] 07/15/2023 1:20 PM NURSE, NEUROSURGERY [facility] [id number] 07/15/2023 2:30 PM Valdo Awan MD [facility] ID [id number] [facility] 07/29/2023 12:00 PM Annalise Rivera APRN [facility] SUR[facility] 08/13/2023 11:40 AM Cl Atkins PA [facility] [id number] Pain control: Non-steroidal anti-inflammatories (NSAIDS) such as aspirin, Aleve and ibuprofen (Advil, Motrin) aremedications that reduce pain and inflammation. To reduce your chance of side effects, it is recommended that you use Tylenol as needed for pain and then NSAIDs. Alternative means of pain relief such as rest and relaxation, positioning, as well as decreasing stimulants such as coffee, tea, soft drinks, and nicotine may also help to alleviate pain. If you continue to experience significant pain 4-5 days after your discharge, it may be necessary to be re-evaluated by your physician. Driving Restrictions: - No driving if you are too sore to enter or exit your vehicle comfortably, or if you are too sore to easily check your blind spot. No driving while using prescription pain medications Activities: - Increase your activity slowly. If it hurts don't do it, but try again the following day. - You may tire easily, so frequent naps may be necessary. - Talk with your doctor about when you can return to work or school. - You may take a shower but have someone nearby in case you need help. Diet: Eat a well-balanced diet. Fresh fruits, vegetables and fiber-containing foods are recommended. Thiswill assist in wound healing. Recommendations: - Take it easy for two weeks. Remember, If it hurts, don't do it. - Take several slow, short walks each day for the first two weeks, and gradually increase your distance. We recommend at least 4 times a day. Wound Care: - You can shower per usual routine - Do not submerge wounds under water (avoid spas, pools and bathtubs) until fully healed. - Do not use creams, oils, or ointments on the wound. - See follow-up appointments for removal of sutures/isabella. This will be at a 1 week nursing appointment. Comfort: - Some soreness can be expected. - Take your pain medication as needed and prescribed. - Taper use of pain medication as pain lessens. Follow up appointments: 1. You will have follow-up appointments at [facility] as indicated in the ???Future Appointments and Orders?? section of your discharge summary. 2. If you do not have a scheduled follow-up appointment listed at the time of discharge, you will be notified of your scheduled appointment on the next business day. Please call [phone] if you do not hear from us by that time, as your timely follow-up is very important to us. Your care was managed by the Trauma and Acute Care Surgery Team at [facility]. If you have any questions or concerns, please feel free to contact us. Provider Contact Information: General Surgery: [facility] (after business hours): Primary Care Physician: MARVA Gordon * Attachments The following attachments cannot be sent through Care Everywhere. * Bowel Resection: Open: Post-op (Qatari) documented in this encounter Medications at Time of Discharge Medication Sig Dispensed Refills Start Date End Date atorvastatin (Lipitor) 40 mg tablet Take 40 [...] the muscle every 14 days. 0 05/03/2018 calcium carbonate (TUMS) 200 mg calcium (500 mg) chewable tablet Take 1 tablet by mouth every 6 hours as needed (Abdominal cramping). 06/30/2023 09/24/2023 senna-docusate (Pericolace) 8.6-50 mg Tablet Take 2 tablets by mouth 2 times daily as needed for Constipation. 60 tablet 06/30/2023 09/24/2023 omeprazole (PriLOSEC) [address] capsule Take 20 mg by mouth daily. 12/18/2021 09/24/2023 Vitamin B-12 5,000 mcg Tablet, Sublingual Take 5,000 mcg by mouth daily. 05/24/2022 09/24/2023 polyethylene glycoL (Miralax) 17 gram oral powder packet Take 17 g by mouth daily as needed. 14 each 05/25/2022 09/24/2023 acetaminophen (Tylenol) 500 mg Tablet Take 500 mg by mouth every 6 hours as needed. 10/11/2019 09/24/2023 rizatriptan (MAXALT) 10 mg TabletIndications:Chroni c migraine without aura without status migrainosus, not intractable Take 1 tablet by mouth as needed for Migraine. 10 tablet 09/02/2019 09/24/2023 topiramate (TOPAMAX) 25 mg TabletIndications:Chroni c migraine without aura without status migrainosus, not intractable Take 1 tablet by mouth 2 times daily. 60 tablet 5 02/10/2019 09/24/2023 documented as of this encounter Progress Notes * Shivani Saey LPN - 07/08/2023 12:53 PM EDT Patient discharged home with mother, iv removed ans education given on isabella in abdomen and head.Patient took bedside belonging home on discharge. He was discharged in private car. * Skye Ty MD - 07/07/2023 2:03 PM EDT [facility] Acute Care Surgery Inpatient Progress Note Patient: Chapin Costa : 1970 Room: 311/311-B Admit date: 07/02/2023 Attending: Reuben Thibodeaux MD ID: Chapin Costa is a 52 y.o. 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 Admitted for a closedloop small bowel obstruction. Now 4 Days Post-Op sp exploratory laparotomy, BITA, and SBR. Subjective/24hr Events: - Pt remained afebrile with stable vital signs overnight. - NAEON. - Tolerating regular diet. - He has continued to pass flatus, still no BM - No nausea Current Medications: polyethylene glycoL (MIRALAX) oral powder 17 g Oral Daily acetaminophen 975 mg Oral Q6H DAMIEN ketorolac 15 mg Intravenous Q6H topiramate 25 mg Per NG tube Daily levothyroxine 25 mcg nephrostomy tube Daily atorvastatin 10 mg Per NG tube Daily ARIPiprazole 10 mg Per NG tube Daily metoprolol 2.5 mg Intravenous Q6H sertraline 100 mg Per NG tube Daily sodium chloride 0.9 % (flush) 5 mL Intravenous BID senna-docusate 2 tablet Oral BID pantoprazole EC 40 mg Oral Daily Or pantoprazole 40 mg Intravenous Daily lidocaine 2 patch Transdermal Q24H ampicillin-sulbactam 3 g Intravenous Q6H sodium chloride 0.9 % (flush) 5 mL Intravenous BID heparin (porcine) 5,000 Units Subcutaneous Q8H DAMIEN Objective: Last value Range last 24hrs Temperature Temp: 36.7 ??C (98.1 ??F) Temp: [36.7 ??C (98.1 ??F)-37.5 ??C (99.5 ??F)] Heart Rate Heart Rate: 76 Heart Rate: [73-94] Blood Pressure BP: (!) 135/92 BP: (127-135)/(66-92) Respiratory Rate Resp: 16 Resp: [15-16] SpO2 SpO2: 96 % SpO2: [95 %-96 %] Intake/Output Summary (Last 24 hours) at 07/07/2023 1403 Last data filed at 07/07/2023 0604 Gross per 24 hour Intake -- Output 375 ml Net -375 ml Physical Exam: General: Awakes easily. NAD, resting comfortably. HEENT: NCAT, EOMI, MMM. Cardiac: Regular rate and rhythm. . Chest: Equal chest rise. Normal WOB on RA. Abdomen: Soft, no TTP, mildly distended. No tympany on exam. Dressing removed, incision midline with isabella : No Augustine. MSK: Moving all 4 extremities spontaneously. Neuro/Psych: A&Ox3. Appropriate mood. Labs: Recent Labs 07/07/2314807/06/23 0353 07/05/23 0336 WBC 11.0* 12.4* 14.7* HGB 11.3* 11.6* 13.6* HCT 34.9* 34.6* 41.0 PLATELET 255 216 260 Recent Labs 07/07/2314807/06/23 0353 07/05/23 0336 NA 141 138 138 K 3.7 3.7 3.7 CL 108* 106 105 CO2 21* 22 22 BUN 12 11 10 CREATININE 0.92 0.89 1.01 GLUCOSE 102 91 110 CALCIUM 8.6 8.5 8.4* MAGNESIUM 0.86 0.82 0.83 PHOS 3.3 2.0* 1.7* Micro: Lab Results Component Value Date BLOODCX No growth at 5 days. 06/16/2023 Imaging/Studies: Results for orders placed or performed during the hospital encounter of 07/02/23 XR Shunt Series (Exam End: 07/02/2023 3:43 PM) Result Value WORKSTATION ID [id number] Narrative EXAMINATION: XR SHUNT SERIES CLINICAL HISTORY: evaluate shunt TECHNIQUE: AP and lateral views of the head, chest and abdomen (7 images) COMPARISON: Radiographs June 15 and June 29, 2023 FINDINGS: Intracranial shunt tip is at midline via a high right frontal approach. The programmable shunt valve is not positioned to evaluate setting. Tubing along the right neck and anterior chest is intact with slight kink where it enters the upper right chest wall. Incomplete shunt segments are seen at the right neck and chest. No intra-abdominal shunt segment is seen. Several surgical clips in the abdomen. No fracture. Lungs are clear. A single left upper quadrant loop of small bowel measures 3.7 cm, otherwise nonobstructive bowel gas pattern. Impression Proximal shunt catheter tubing is well delineated and intact to the level of mid chest, but its distal and abdominal segments are not identified. This is based on patient body habitus and portable radiograph exposure. Of note, a CT abdomen pelvis has been ordered. Thank you for letting us participate in the care of this patient. If you are a health care provider and have any questions regarding this report, please contact the number below. For patients who have questions please contact the health health care sanitary technician that requested your imaging first. 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 COMPARISON: Head CT 06/16/2023 FINDINGS: There is no acute intracranial hemorrhage or mass effect. Right frontal approach ventricular shunt is in stable position. Collapsed ventricular morphology is stable, with mild asymmetric distention of the temporal horn of the right lateral ventricle. There is no interval attenuation abnormality of the brain parenchyma. No interval osseous findings. Mastoids, middle ear spaces and imaged paranasal sinuses are normally aerated. Impression Stable brain CT with attention to ventricular morphology. No acute findings. Thank you for letting us participate in the care of this patient. If you are a health care provider and have any questions regarding this report, please contact the number below. For patients who have questions please contact the health health care sanitary technician that requested your imaging first. Abdomen & Pelvis w Contrast (Exam End: 07/02/2023 3:49 PM) Result Value WORKSTATION ID [id number] Narrative EXAMINATION: CT ABDOMEN AND PELVIS W CONTRAST CLINICAL HISTORY: recurrent epigastric abdominal pain and emesis, Pt with PMH of congenital hydrocephalus with recent shunt revision on 06/28 (ventriculopleural shunt placed due to complication with ventriculoperitoneal shunt), intraabdominal abscesses managed now on abx, and partial SBO on 06/27 TECHNIQUE: Helical CT of the abdomen and pelvis following the intravenous administration of contrast. Administered 113.0 ml of OMNIPAQUE 350.00 mg/ml. Oral contrast was not administered. COMPARISON: CT from 06/28/2023 FINDINGS: Lower chest: Interval placement of a shunt catheter in the right posterior pleural space with small right pleural effusion and mild right basilar atelectasis. Liver: Normal size and overall attenuation. Stable small area of hypodensity in segment 4A most likely represents focal fatty infiltration. Bile ducts: Nondilated. Gallbladder: Surgically absent. Pancreas: Normal attenuation without ductal dilatation. Spleen: Normal. Adrenals: Normal. Kidneys: Normal. Urinary Bladder: Normal. Vasculature: No abdominal aortic aneurysm. Lymph Nodes: No enlarged lymph nodes. Bowel: Increased dilation of a segment of fluid-filled small bowel with probable proximal and distal transition points in the anterior left abdomen along the abdominal wall in the vicinity of an anterior abdominal wall metallic clip (series 4 image [id number] and series 4 image [id number]). The more distal small bowel and colon are relatively decompressed. No pneumatosis or portal venous gas. Peritoneum and retroperitoneum: No free fluid or loculated fluid collection. No pneumoperitoneum. Abdominal wall: No hernia. Small fat-containing inguinal hernias. Reproductive organs: Normal. Osseous structures: No suspicious lesions. Impression 1. Increased dilation of a segment of mid small bowel in the left abdomen with proximal and distal transition points suspicious for a closed-loop obstruction. This could be related to anterior abdominal wall adhesions or possible internal hernia. 2. No intra-abdominal abscess or free air. 3. Intervertebral placement of a right pleural shunt catheter with small right pleural effusion and right basilar atelectasis. These findings were communicated to Dr. Nuñez by Dr. Graham at 4:15 PM on 07/02/2023 via secure chat. Thank you for letting us participate in the care of this patient. If you are a health care provider and have any questions regarding this report, please contact the number below. For patients who have questions please contact the health health care sanitary technician that requested your imaging first. Abdomen 1 view (Generic) (Exam End: 07/03/2023 9:00 PM) Result Value WORKSTATION ID [id number] Narrative EXAMINATION: XR ABDOMEN 1 VIEW (GENERIC) CLINICAL HISTORY: s/p NGT placement TECHNIQUE: Portable abdominal radiograph, single image COMPARISON: CT abdomen pelvis 07/02/2023 FINDINGS: Enteric tube projects below the diaphragm with tip and side port projecting over the stomach. Surgical clips project over the gallbladder fossa. EKG leads are present. Shunt catheter tubing projects over the right hemithorax. Linear calcification projecting over the right hemidiaphragm localizing to the subcutaneous fat on prior CT. Air-filled dilated loops of bowel within the lower abdomen measuring up to 6.2 cm in caliber. Skin isabella project over the lower abdomen. Impression Enteric tube tip and side-port project over the stomach. Thank you for letting us participate in the care of this patient. If you are a health care provider and have any questions regarding this report, please contact the number below. For patients who have questions please contact the health health care sanitary technician that requested your imaging first. A/P: Chapin Costa is a 52 y.o. 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 He is 4 Days Post-Op s/p exploratory laparotomy, BITA, and SBR. Tolerating regular diet and passing flatus, no BM. Pain controlled with scheduled toradol, will order to time out today and start oral NSAID tonight PRN. Not requiring oxycodone, discontinued. [place] in place, to be removed on 07/14-07/18. Will encourage OOB and added miralax to assist with BM. Neuro: - Analgesia: Acetaminophen and Ketorolac, PROCESS SAFETY MANAGER d/c'd 07/05. - Continue home Abilify, sertraline, Topamax CV: - Hx of HTN and HLD: Continue home atorvastatin and metoprolol Pulm: - No acute issues - Encourage IS/OOB GI: - Diet: Regular diet - SBO likely 2/2 adhesive disease - NGT pulled 07/04 FEN: - No acute issues - No mIVF now that he is on a regular diet - Electrolytes: Replete K>4, PO4>2.5, Mg>1 : - Voiding spontaneously ID: - Localized infection only, without systemic illness - Unasyn (07/02 - ) - Previous abdominal fluid growing E faecalis on 06/17 - Per ID on previous admission, outpatient plan for 4 weeks of Augmentin and op follow up with ID. Will continue Augmentin on discharge. Heme: - No acute issues Endo: - Hx of hypothyroidism: Restart home levothyroxine MSK: - BMI: Obesity-Grade I (30.0-34.9) - OOB PPX: - SCDs and Subcutaneous heparin Dispo: - Floor - Code: Attempt Cardiopulmonary Resuscitation - Inpatient Skye Ty MD 07/06/2023 Service Pager: [phone] Associated attestation - Reuben Thibodeaux MD - 07/08/2023 3:42 PM EDT I have seen the patient in person and reviewed the above history and I agree with the details as written. The assessment and plan were formulated in discussion with me and I agree with them as documented. Reuben Thibodeaux MD * Skye Ty MD - 07/07/2023 11:23 AM EDT ID/MECHANISM OF INJURY: Chapin Costa is a 52 y.o. male s/p bowel resection and small intestine anastomosis for bowelobstruction OR CASE INFORMATION: 07/03/2023 Procedure(s): @BOWEL RESECTION, SMALL INTESTINE SINGLE ANASTOMOSIS (WRVU 20.82) FOLLOW-UP NEEDED: Does pt need to f-u with surgeon or JANITOR AND CLEANER (please indicate reason if attending provider): JANITOR AND CLEANER How soon should ACS f/u be? 3-4 weeks 1 week nurse visit for staple removal Does patient need imaging prior to ACS f/u? No Are CT/MRI Safety questions complete (if needed)? No Does patient have isabella/sutures? What do they have? When should they be removed? What service is responsible? Yes [place] 1 week ACS Does patient need labs with TACS f/u? No Follow-up with other services? Yes Follow up with neurosurgery and ID previously scheduled for 07/14 from prior admission Advise of Service and needs. Imaging orders entered: No Radiology Safety questions done for MRI/CT? No New or current ostomy? Ostomy nurse shared visit No Mobility concerns: Fully ambulatory Wound vac (requires 60min clinic visit) No On vent? If Yes - Needs to have someone from facility and supplies. No On Dialysis: No (SCHEDULE?) INCIDENTAL FINDINGS Incidental Findings (yes/no): No OPIOID CONSENT/NARCOTIC AGREEMENTS Current Month Narcotic Consent? No Isolation No Isolation D/c to: Home PCP Name: MARVA Gordon MD 07/07/2023 * Noam Fragoso - 07/06/2023 3:54 PM EDT Lay Out Drafter Encounter Note Patient Name: Chapin Costa : [id number] MR#: [id number] Admit Date: 07/02/2023 1:43 PM Hospital Day 4 days Narrative:Visited to introduce and assess acceptance of Lay Out Drafter services. Assessment: patient was awake, alert, oriented and in bed. Patient coping positively with stresses of illness/hospitalization at this time. Patient says that he is hoping to get better and mother is helpful and he is taking one day at time. Intervention and Outcome:Provided emotional, spiritual support and listening presence. Lay Out Drafter services accepted. Conversation to build trusting relationship. Provided pastoral presence. Provided spiritual guidance. Follow-up: yes Time in Direct Care:06 Mins Noam Fragoso 07/06/2023 * Skye Ty MD - 07/06/2023 3:39 PM EDT [facility] Inpatient Progress Note Patient: Chapin Costa : 1970 Room: 311/311-B Admit date: 07/02/2023 Attending: Reuben Thibodeaux MD ID: Chapin Costa is a 52 y.o. 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 Admitted for a closedloop small bowel obstruction. Now 3 Days Post-Op sp exploratory laparotomy, BITA, and SBR. Subjective/24hr Events: - Pt remained afebrile with stable vital signs overnight. - NAEON. - Was able to tolerate CLD yesterday. - He has continued to pass flatus - Has gotten OOB and has ambulated on POD 1, though did not yesterday. - NGT pulled yesterday after clamp trial. Current Medications: acetaminophen 975 mg Oral Q6H DAMIEN ketorolac 15 mg Intravenous Q6H topiramate 25 mg Per NG tube Daily levothyroxine 25 mcg nephrostomy tube Daily atorvastatin 10 mg Per NG tube Daily ARIPiprazole 10 mg Per NG tube Daily metoprolol 2.5 mg Intravenous Q6H sertraline 100 mg Per NG tube Daily sodium chloride 0.9 % (flush) 5 mL Intravenous BID senna-docusate 2 tablet Oral BID pantoprazole EC 40 mg Oral Daily Or pantoprazole 40 mg Intravenous Daily lidocaine 2 patch Transdermal Q24H ampicillin-sulbactam 3 g Intravenous Q6H sodium chloride 0.9 % (flush) 5 mL Intravenous BID heparin (porcine) 5,000 Units Subcutaneous Q8H DAMIEN Objective: Last value Range last 24hrs Temperature Temp: 37.5 ??C (99.5 ??F) Temp: [37.3 ??C (99.1 ??F)-37.9 ??C (100.2 ??F)] Heart Rate Heart Rate: 87 Heart Rate: [87] Blood Pressure BP: 119/74 BP: (111-120)/(69-78) Respiratory Rate Resp: 16 Resp: [16-18] SpO2 SpO2: 96 % SpO2: [93 %-96 %] Intake/Output Summary (Last 24 hours) at 07/06/2023 1539 Last data filed at 07/06/2023 0456 Gross per 24 hour Intake 1360 ml Output 1075 ml Net 285 ml Physical Exam: General: Awakes easily. NAD, resting comfortably. HEENT: NCAT, EOMI, MMM. Cardiac: Regular rate and rhythm. . Chest: Equal chest rise. Normal WOB on RA. Abdomen: Soft, no TTP, mildly distended. No tympany on exam. Dressings with some strikethrough, marked. : No Augustine. MSK: Moving all 4 extremities spontaneously. Neuro/Psych: A&Ox3. Appropriate mood. Labs: Recent Labs 07/06/23 0353 07/05/23 0336 07/04/23 0201 WBC 12.4* 14.7* 18.6* HGB 11.6* 13.6* 16.1 HCT 34.6* 41.0 47.4 PLATELET 216 260 333 Recent Labs 07/06/23 0353 07/05/23 0336 07/04/23 0201 NA 138 138 135 K 3.7 3.7 4.0 CL 106 105 106 CO2 22 22 20* BUN 11 10 16 CREATININE 0.89 1.01 1.04 GLUCOSE 91 110 146 CALCIUM 8.5 8.4* 8.6 MAGNESIUM 0.82 0.83 0.78 PHOS 2.0* 1.7* 3.5 Micro: Lab Results Component Value Date BLOODCX No growth at 5 days. 06/16/2023 Imaging/Studies: Results for orders placed or performed during the hospital encounter of 07/02/23 XR Shunt Series (Exam End: 07/02/2023 3:43 PM) Result Value WORKSTATION ID [id number] Narrative EXAMINATION: XR SHUNT SERIES CLINICAL HISTORY: evaluate shunt TECHNIQUE: AP and lateral views of the head, chest and abdomen (7 images) COMPARISON: Radiographs June 15 and June 29, 2023 FINDINGS: Intracranial shunt tip is at midline via a high right frontal approach. The programmable shunt valve is not positioned to evaluate setting. Tubing along the right neck and anterior chest is intact with slight kink where it enters the upper right chest wall. Incomplete shunt segments are seen at the right neck and chest. No intra-abdominal shunt segment is seen. Several surgical clips in the abdomen. No fracture. Lungs are clear. A single left upper quadrant loop of small bowel measures 3.7 cm, otherwise nonobstructive bowel gas pattern. Impression Proximal shunt catheter tubing is well delineated and intact to the level of mid chest, but its distal and abdominal segments are not identified. This is based on patient body habitus and portable radiograph exposure. Of note, a CT abdomen pelvis has been ordered. Thank you for letting us participate in the care of this patient. If you are a health care provider and have any questions regarding this report, please contact the number below. For patients who have questions please contact the health health care sanitary technician that requested your imaging first. 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 COMPARISON: Head CT 06/16/2023 FINDINGS: There is no acute intracranial hemorrhage or mass effect. Right frontal approach ventricular shunt is in stable position. Collapsed ventricular morphology is stable, with mild asymmetric distention of the temporal horn of the right lateral ventricle. There is no interval attenuation abnormality of the brain parenchyma. No interval osseous findings. Mastoids, middle ear spaces and imaged paranasal sinuses are normally aerated. Impression Stable brain CT with attention to ventricular morphology. No acute findings. Thank you for letting us participate in the care of this patient. If you are a health care provider and have any questions regarding this report, please contact the number below. For patients who have questions please contact the health health care sanitary technician that requested your imaging first. Abdomen & Pelvis w Contrast (Exam End: 07/02/2023 3:49 PM) Result Value WORKSTATION ID [id number] Narrative EXAMINATION: CT ABDOMEN AND PELVIS W CONTRAST CLINICAL HISTORY: recurrent epigastric abdominal pain and emesis, Pt with PMH of congenital hydrocephalus with recent shunt revision on 06/28 (ventriculopleural shunt placed due to complication with ventriculoperitoneal shunt), intraabdominal abscesses managed now on abx, and partial SBO on 06/27 TECHNIQUE: Helical CT of the abdomen and pelvis following the intravenous administration of contrast. Administered 113.0 ml of OMNIPAQUE 350.00 mg/ml. Oral contrast was not administered. COMPARISON: CT from 06/28/2023 FINDINGS: Lower chest: Interval placement of a shunt catheter in the right posterior pleural space with small right pleural effusion and mild right basilar atelectasis. Liver: Normal size and overall attenuation. Stable small area of hypodensity in segment 4A most likely represents focal fatty infiltration. Bile ducts: Nondilated. Gallbladder: Surgically absent. Pancreas: Normal attenuation without ductal dilatation. Spleen: Normal. Adrenals: Normal. Kidneys: Normal. Urinary Bladder: Normal. Vasculature: No abdominal aortic aneurysm. Lymph Nodes: No enlarged lymph nodes. Bowel: Increased dilation of a segment of fluid-filled small bowel with probable proximal and distal transition points in the anterior left abdomen along the abdominal wall in the vicinity of an anterior abdominal wall metallic clip (series 4 image [id number] and series 4 image 95-97). The more distal small bowel and colon are relatively decompressed. No pneumatosis or portal venous gas. Peritoneum and retroperitoneum: No free fluid or loculated fluid collection. No pneumoperitoneum. Abdominal wall: No hernia. Small fat-containing inguinal hernias. Reproductive organs: Normal. Osseous structures: No suspicious lesions. Impression 1. Increased dilation of a segment of mid small bowel in the left abdomen with proximal and distal transition points suspicious for a closed-loop obstruction. This could be related to anterior abdominal wall adhesions or possible internal hernia. 2. No intra-abdominal abscess or free air. 3. Intervertebral placement of a right pleural shunt catheter with small right pleural effusion and right basilar atelectasis. These findings were communicated to Dr. Nuñez by Dr. Graham at 4:15 PM on 07/02/2023 via secure chat. Thank you for letting us participate in the care of this patient. If you are a health care provider and have any questions regarding this report, please contact the number below. For patients who have questions please contact the health health care sanitary technician that requested your imaging first. Abdomen 1 view (Generic) (Exam End: 07/03/2023 9:00 PM) Result Value WORKSTATION ID [id number] Narrative EXAMINATION: XR ABDOMEN 1 VIEW (GENERIC) CLINICAL HISTORY: s/p NGT placement TECHNIQUE: Portable abdominal radiograph, single image COMPARISON: CT abdomen pelvis 07/02/2023 FINDINGS: Enteric tube projects below the diaphragm with tip and side port projecting over the stomach. Surgical clips project over the gallbladder fossa. EKG leads are present. Shunt catheter tubing projects over the right hemithorax. Linear calcification projecting over the right hemidiaphragm localizing to the subcutaneous fat on prior CT. Air-filled dilated loops of bowel within the lower abdomen measuring up to 6.2 cm in caliber. Skin isabella project over the lower abdomen. Impression Enteric tube tip and side-port project over the stomach. Thank you for letting us participate in the care of this patient. If you are a health care provider and have any questions regarding this report, please contact the number below. For patients who have questions please contact the health health care sanitary technician that requested your imaging first. A/P: Chapin Costa is a 52 y.o. 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 He is 3 Days Post-Op s/p exploratory laparotomy, BITA, and SBR. Tolerated CLD yesterday and continues to pass flatus, no BM. Pain is better controlled today - willwork on transitioning him to PO pain medications and d/c PROCESS SAFETY MANAGER. Will d/c his augustine and work on advancing him to a regular diet. [place] in place, to be removed on 07/14-07/18. Encourage pt to get OOB andambulate today. Neuro: - Analgesia: Acetaminophen, Ketorolac, and Oxycodone, PROCESS SAFETY MANAGER d/c'd 07/05. - Continue home Abilify, sertraline, Topamax CV: - Hx of HTN and HLD: Continue home atorvastatin and metoprolol Pulm: - No acute issues - Encourage IS/OOB GI: - Diet: Regular diet - SBO likely 2/2 adhesive disease - NGT pulled 07/04 FEN: - No acute issues - D/c mIVF now that he is on a regular diet - Electrolytes: Replete K>4, PO4>2.5, Mg>1 : - Voiding spontaneously ID: - Localized infection only, without systemic illness - Unasyn (07/02 - ) Heme: - No acute issues Endo: - Hx of hypothyroidism: Restart home levothyroxine MSK: - BMI: Obesity-Grade I (30.0-34.9) - OOB, PT/OT PPX: - SCDs and Subcutaneous heparin Dispo: - Floor - Code: Attempt Cardiopulmonary Resuscitation - Inpatient Tatianna Ayala, MS4 07/06/2023 Service Pager: [phone] Skye Ty MD 07/06/23 Associated attestation - Reuben Thibodeaux MD - 07/08/2023 2:38 PM EDT I have seen the patient in person and reviewed the above history and I agree with the details as written. The assessment and plan were formulated in discussion with me and I agree with them as documented. Doing well. ADAT. OOB today, awaiting BMs Reuben Thibodeaux MD * Cl Bowens MD - 07/05/2023 8:01 AM EDT [facility] Progress Note Patient: Chapin Costa : 1970 Room: [address] [place] [address]-B Admit date: 07/02/2023 Attending: Reuben Thibodeaux MD ID: Chapin Costa is a 52 y.o. 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 Admitted for a closedloop small bowel obstruction. Now 2 Days Post-Op sp exploratory laparotomy, BITA, and SBR. Subjective/24hr Events: - Pt remained afebrile with stable vital signs overnight. - NAEON. - Reporting abd pain greatest around his incisions, not well controlled on current pain medication. - He has been passing small amounts of flatus - Has gotten OOB, has ambulated - NGT with 400 ccs/ 24 hours of light bilious fluid. Current Medications: potassium phosphate 15 mmol Intravenous Once topiramate 25 mg Per NG tube Daily levothyroxine 25 mcg nephrostomy tube Daily atorvastatin 10 mg Per NG tube Daily ARIPiprazole 10 mg Per NG tube Daily metoprolol 2.5 mg Intravenous Q6H sertraline 100 mg Per NG tube Daily sodium chloride 0.9 % (flush) 5 mL Intravenous BID senna-docusate 2 tablet Oral BID pantoprazole EC 40 mg Oral Daily Or pantoprazole 40 mg Intravenous Daily PROCESS SAFETY MANAGER shift total and Settings verification Intravenous 2 Times Daily- PROCESS SAFETY MANAGER Shift Total lidocaine 2 patch Transdermal Q24H ampicillin-sulbactam 3 g Intravenous Q6H sodium chloride 0.9 % (flush) 5 mL Intravenous BID heparin (porcine) 5,000 Units Subcutaneous Q8H DAMIEN Objective: Last value Range last 24hrs Temperature Temp: 37.5 ??C (99.5 ??F) Temp: [36.8 ??C (98.2 ??F)-37.5 ??C (99.5 ??F)] Heart Rate Heart Rate: 99 Heart Rate: -- Blood Pressure BP: 136/84 BP: (136-141)/(82-89) Respiratory Rate Resp: 16 Resp: [16-18] SpO2 SpO2: 93 % SpO2: [93 %-96 %] Intake/Output Summary (Last 24 hours) at 07/05/2023 0805 Last data filed at 07/05/2023 0757 Gross per 24 hour Intake 2176 ml Output 2950 ml Net -774 ml Physical Exam: General: Awakes easily. NAD, resting comfortably. HEENT: NCAT, EOMI, MMM. NGT in place in R nare. Cardiac: Regular rate and rhythm. . Chest: Equal chest rise. Normal WOB on RA. Abdomen: Soft, moderately TTP, non- distended. No tympany on exam. Dressings CDI. : Augustine in place draining CYU. MSK: Moving all 4 extremities spontaneously. Neuro/Psych: A&Ox3. Appropriate mood. Labs: Recent Labs 07/05/23 0336 07/04/23 02007/03/232043 WBC 14.7* 18.6* 17.7* HGB 13.6* 16.1 16.6* HCT 41.0 47.4 49.2* PLATELET 260 333 358* Recent Labs 07/05/23 0336 07/04/23 0201 07/03/23204307/03/23 0246 NA 138 135 135 138 K 3.7 4.0 3.7 3.7 CL 105 106 104 105 CO2 22 20* 20* 18* BUN 10 16 17 15 CREATININE 1.01 1.04 1.05 1.10 GLUCOSE 110 146 181 102 CALCIUM 8.4* 8.6 8.6 9.0 MAGNESIUM 0.83 0.78 -- 0.87 PHOS 1.7* 3.5 -- 3.0 Micro: Lab Results Component Value Date BLOODCX No growth at 5 days. 06/16/2023 Imaging/Studies: Results for orders placed or performed during the hospital encounter of 07/02/23 XR Shunt Series (Exam End: 07/02/2023 3:43 PM) Result Value WORKSTATION ID [id number] Narrative EXAMINATION: XR SHUNT SERIES CLINICAL HISTORY: evaluate shunt TECHNIQUE: AP and lateral views of the head, chest and abdomen (7 images) COMPARISON: Radiographs June 15 and June 29, 2023 FINDINGS: Intracranial shunt tip is at midline via a high right frontal approach. The programmable shunt valve is not positioned to evaluate setting. Tubing along the right neck and anterior chest is intact with slight kink where it enters the upper right chest wall. Incomplete shunt segments are seen at the right neck and chest. No intra-abdominal shunt segment is seen. Several surgical clips in the abdomen. No fracture. Lungs are clear. A single left upper quadrant loop of small bowel measures 3.7 cm, otherwise nonobstructive bowel gas pattern. Impression Proximal shunt catheter tubing is well delineated and intact to the level of mid chest, but its distal and abdominal segments are not identified. This is based on patient body habitus and portable radiograph exposure. Of note, a CT abdomen pelvis has been ordered. Thank you for letting us participate in the care of this patient. If you are a health care provider and have any questions regarding this report, please contact the number below. For patients who have questions please contact the health health care sanitary technician that requested your imaging first. 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 COMPARISON: Head CT 06/16/2023 FINDINGS: There is no acute intracranial hemorrhage or mass effect. Right frontal approach ventricular shunt is in stable position. Collapsed ventricular morphology is stable, with mild asymmetric distention of the temporal horn of the right lateral ventricle. There is no interval attenuation abnormality of the brain parenchyma. No interval osseous findings. Mastoids, middle ear spaces and imaged paranasal sinuses are normally aerated. Impression Stable brain CT with attention to ventricular morphology. No acute findings. Thank you for letting us participate in the care of this patient. If you are a health care provider and have any questions regarding this report, please contact the number below. For patients who have questions please contact the health health care sanitary technician that requested your imaging first. Abdomen & Pelvis w Contrast (Exam End: 07/02/2023 3:49 PM) Result Value WORKSTATION ID [id number] Narrative EXAMINATION: CT ABDOMEN AND PELVIS W CONTRAST CLINICAL HISTORY: recurrent epigastric abdominal pain and emesis, Pt with PMH of congenital hydrocephalus with recent shunt revision on 06/28 (ventriculopleural shunt placed due to complication with ventriculoperitoneal shunt), intraabdominal abscesses managed now on abx, and partial SBO on 06/27 TECHNIQUE: Helical CT of the abdomen and pelvis following the intravenous administration of contrast. Administered 113.0 ml of OMNIPAQUE 350.00 mg/ml. Oral contrast was not administered. COMPARISON: CT from 06/28/2023 FINDINGS: Lower chest: Interval placement of a shunt catheter in the right posterior pleural space with small right pleural effusion and mild right basilar atelectasis. Liver: Normal size and overall attenuation. Stable small area of hypodensity in segment 4A most likely represents focal fatty infiltration. Bile ducts: Nondilated. Gallbladder: Surgically absent. Pancreas: Normal attenuation without ductal dilatation. Spleen: Normal. Adrenals: Normal. Kidneys: Normal. Urinary Bladder: Normal. Vasculature: No abdominal aortic aneurysm. Lymph Nodes: No enlarged lymph nodes. Bowel: Increased dilation of a segment of fluid-filled small bowel with probable proximal and distal transition points in the anterior left abdomen along the abdominal wall in the vicinity of an anterior abdominal wall metallic clip (series 4 image [id number] and series 4 image [id number]). The more distal small bowel and colon are relatively decompressed. No pneumatosis or portal venous gas. Peritoneum and retroperitoneum: No free fluid or loculated fluid collection. No pneumoperitoneum. Abdominal wall: No hernia. Small fat-containing inguinal hernias. Reproductive organs: Normal. Osseous structures: No suspicious lesions. Impression 1. Increased dilation of a segment of mid small bowel in the left abdomen with proximal and distal transition points suspicious for a closed-loop obstruction. This could be related to anterior abdominal wall adhesions or possible internal hernia. 2. No intra-abdominal abscess or free air. 3. Intervertebral placement of a right pleural shunt catheter with small right pleural effusion and right basilar atelectasis. These findings were communicated to Dr. Nuñez by Dr. Graham at 4:15 PM on 07/02/2023 via secure chat. Thank you for letting us participate in the care of this patient. If you are a health care provider and have any questions regarding this report, please contact the number below. For patients who have questions please contact the health health care sanitary technician that requested your imaging first. Abdomen 1 view (Generic) (Exam End: 07/03/2023 9:00 PM) Result Value WORKSTATION ID [id number] Narrative EXAMINATION: XR ABDOMEN 1 VIEW (GENERIC) CLINICAL HISTORY: s/p NGT placement TECHNIQUE: Portable abdominal radiograph, single image COMPARISON: CT abdomen pelvis 07/02/2023 FINDINGS: Enteric tube projects below the diaphragm with tip and side port projecting over the stomach. Surgical clips project over the gallbladder fossa. EKG leads are present. Shunt catheter tubing projects over the right hemithorax. Linear calcification projecting over the right hemidiaphragm localizing to the subcutaneous fat on prior CT. Air-filled dilated loops of bowel within the lower abdomen measuring up to 6.2 cm in caliber. Skin isabella project over the lower abdomen. Impression Enteric tube tip and side-port project over the stomach. Thank you for letting us participate in the care of this patient. If you are a health care provider and have any questions regarding this report, please contact the number below. For patients who have questions please contact the health health care sanitary technician that requested your imaging first. A/P: Chapin Costa is a 52 y.o. 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 He is 2 Days Post-Op s/p exploratory laparotomy, BITA, and SBR. Pt passing flatus this morning. 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 LR running at 100 ccs/hr. [place] to be removed on 07/14-07/18. Plan for NGT gravity trial today, have pt get OOB andambulate throughout the halls. Work on getting pain under better control with Toradol 15 mg Q6 hours PRN. Neuro: - Analgesia: Ketorolac and Dilaudid PROCESS SAFETY MANAGER, - Continue home Abilify, sertraline, Topamax CV: - Hx of HTN and HLD: Continue home atorvastatin and metoprolol Pulm: - No acute issues - Encourage IS/OOB GI: - Diet: NPO diet (Give Meds) - SBO likely 2/2 adhesive disease - NGT gravity trial today FEN: - No acute issues - LR @ 100 ccs/hr - Electrolytes: Replete K>4, PO4>2.5, Mg>1 : - Augustine draining CYU ID: - Localized infection only, without systemic illness - Unasyn (07/02 - ) Heme: - No acute issues Endo: - Hx of hypothyroidism: Restart home levothyroxine MSK: - BMI: Obesity-Grade I (30.0-34.9) - OOB, PT/OT PPX: - SCDs and Subcutaneous heparin Dispo: - Floor - Code: Attempt Cardiopulmonary Resuscitation - Inpatient Delgado Denis MD 07/05/2023 Service Pager: [phone] Attending Addendum I have seen and examined the patient and reviewed the history documented above and I agree with thedetails as written. I have reviewed the laboratory data and viewed the pertinent imaging. The assessment and plan were formulated in discussion with me and I agree with them as documented. Awaiting SEMAJF Did well with ngt clamp trial today and NGT removed D. Andrew Bowens MD * Delgado Denis MD - 07/04/2023 9:34 AM EDT [facility] Acute Care Surgery Inpatient Progress Note Patient: Chapin Costa : 1970 Room: [address] [place] [address] Admit date: 07/02/2023 Attending: Rebuen Thibodeaux MD ID: Chapin Costa is a 52 y.o. 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 Admitted for a closedloop small bowel obstruction. Subjective/24hr Events: - S/p ex lap, BITA and SBR Current Medications: topiramate 25 mg Per NG tube Daily levothyroxine 25 mcg nephrostomy tube Daily atorvastatin 10 mg Per NG tube Daily ARIPiprazole 10 mg Per NG tube Daily metoprolol 2.5 mg Intravenous Q6H sertraline 100 mg Per NG tube Daily sodium chloride 0.9 % (flush) 5 mL Intravenous BID senna-docusate 2 tablet Oral BID pantoprazole EC 40 mg Oral Daily Or pantoprazole 40 mg Intravenous Daily PROCESS SAFETY MANAGER shift total and Settings verification Intravenous 2 Times Daily- PROCESS SAFETY MANAGER Shift Total acetaminophen 1,000 mg Intravenous Q8H DAMIEN lidocaine 2 patch Transdermal Q24H ampicillin-sulbactam 3 g Intravenous Q6H sodium chloride 0.9 % (flush) 5 mL Intravenous BID heparin (porcine) 5,000 Units Subcutaneous Q8H DAMIEN Objective: Last value Range last 24hrs Temperature Temp: 37.1 ??C (98.8 ??F) Temp: [36.3 ??C (97.3 ??F)-37.1 ??C (98.8 ??F)] Heart Rate Heart Rate: 99 Heart Rate: [82-100] Blood Pressure BP: 131/73 BP: (113-139)/(73-90) Respiratory Rate Resp: 18 Resp: [12-26] SpO2 SpO2: 95 % SpO2: [90 %-95 %] Intake/Output Summary (Last 24 hours) at 07/04/2023 0948 Last data filed at 07/04/2023 0610 Gross per 24 hour Intake 3111 ml Output 1725 ml Net 1386 ml Physical Exam: General: NAD, resting comfortably. HEENT: NCAT, EOMI, MMM. Cardiac: Nontachycardic. Chest: Equal chest rise. Normal WOB on RA. Abdomen: Soft, moderately TTP, distended. Dressing CDI. : No Augustine. MSK: Moving all 4 extremities spontaneously. Neuro/Psych: A&Ox3. Appropriate mood. Labs: Recent Labs 07/04/23 0201 07/03/23204307/03/23 0246 WBC 18.6* 17.7* 12.1* HGB 16.1 16.6* 15.9 HCT 47.4 49.2* 46.3 PLATELET 333 358* 245 Recent Labs 07/04/23 0201 07/03/23204307/03/23 0246 07/02/23 1502 NA 135 135 138 134* K 4.0 3.7 3.7 4.0 CL 106 104 105 101 CO2 20* 20* 18* 19* BUN 16 17 15 16 CREATININE 1.04 1.05 1.10 1.07 GLUCOSE 146 181 102 101 CALCIUM 8.6 8.6 9.0 9.6 MAGNESIUM 0.78 -- 0.87 0.87 PHOS 3.5 -- 3.0 -- Micro: Lab Results Component Value Date BLOODCX No growth at 5 days. 06/16/2023 Imaging/Studies: Results for orders placed or performed during the hospital encounter of 07/02/23 XR Shunt Series (Exam End: 07/02/2023 3:43 PM) Result Value WORKSTATION ID [id number] Narrative EXAMINATION: XR SHUNT SERIES CLINICAL HISTORY: evaluate shunt TECHNIQUE: AP and lateral views of the head, chest and abdomen (7 images) COMPARISON: Radiographs June 15 and June 29, 2023 FINDINGS: Intracranial shunt tip is at midline via a high right frontal approach. The programmable shunt valve is not positioned to evaluate setting. Tubing along the right neck and anterior chest is intact with slight kink where it enters the upper right chest wall. Incomplete shunt segments are seen at the right neck and chest. No intra-abdominal shunt segment is seen. Several surgical clips in the abdomen. No fracture. Lungs are clear. A single left upper quadrant loop of small bowel measures 3.7 cm, otherwise nonobstructive bowel gas pattern. Impression Proximal shunt catheter tubing is well delineated and intact to the level of mid chest, but its distal and abdominal segments are not identified. This is based on patient body habitus and portable radiograph exposure. Of note, a CT abdomen pelvis has been ordered. Thank you for letting us participate in the care of this patient. If you are a health care provider and have any questions regarding this report, please contact the number below. For patients who have questions please contact the health health care sanitary technician that requested your imaging first. 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 COMPARISON: Head CT 06/16/2023 FINDINGS: There is no acute intracranial hemorrhage or mass effect. Right frontal approach ventricular shunt is in stable position. Collapsed ventricular morphology is stable, with mild asymmetric distention of the temporal horn of the right lateral ventricle. There is no interval attenuation abnormality of the brain parenchyma. No interval osseous findings. Mastoids, middle ear spaces and imaged paranasal sinuses are normally aerated. Impression Stable brain CT with attention to ventricular morphology. No acute findings. Thank you for letting us participate in the care of this patient. If you are a health care provider and have any questions regarding this report, please contact the number below. For patients who have questions please contact the health health care sanitary technician that requested your imaging first. Abdomen & Pelvis w Contrast (Exam End: 07/02/2023 3:49 PM) Result Value WORKSTATION ID [id number] Narrative EXAMINATION: CT ABDOMEN AND PELVIS W CONTRAST CLINICAL HISTORY: recurrent epigastric abdominal pain and emesis, Pt with PMH of congenital hydrocephalus with recent shunt revision on 06/28 (ventriculopleural shunt placed due to complication with ventriculoperitoneal shunt), intraabdominal abscesses managed now on abx, and partial SBO on 06/27 TECHNIQUE: Helical CT of the abdomen and pelvis following the intravenous administration of contrast. Administered 113.0 ml of OMNIPAQUE 350.00 mg/ml. Oral contrast was not administered. COMPARISON: CT from 06/28/2023 FINDINGS: Lower chest: Interval placement of a shunt catheter in the right posterior pleural space with small right pleural effusion and mild right basilar atelectasis. Liver: Normal size and overall attenuation. Stable small area of hypodensity in segment 4A most likely represents focal fatty infiltration. Bile ducts: Nondilated. Gallbladder: Surgically absent. Pancreas: Normal attenuation without ductal dilatation. Spleen: Normal. Adrenals: Normal. Kidneys: Normal. Urinary Bladder: Normal. Vasculature: No abdominal aortic aneurysm. Lymph Nodes: No enlarged lymph nodes. Bowel: Increased dilation of a segment of fluid-filled small bowel with probable proximal and distal transition points in the anterior left abdomen along the abdominal wall in the vicinity of an anterior abdominal wall metallic clip (series 4 image [id number] and series 4 image [id number]). The more distal small bowel and colon are relatively decompressed. No pneumatosis or portal venous gas. Peritoneum and retroperitoneum: No free fluid or loculated fluid collection. No pneumoperitoneum. Abdominal wall: No hernia. Small fat-containing inguinal hernias. Reproductive organs: Normal. Osseous structures: No suspicious lesions. Impression 1. Increased dilation of a segment of mid small bowel in the left abdomen with proximal and distal transition points suspicious for a closed-loop obstruction. This could be related to anterior abdominal wall adhesions or possible internal hernia. 2. No intra-abdominal abscess or free air. 3. Intervertebral placement of a right pleural shunt catheter with small right pleural effusion and right basilar atelectasis. These findings were communicated to Dr. Nuñez by Dr. Graham at 4:15 PM on 07/02/2023 via secure chat. Thank you for letting us participate in the care of this patient. If you are a health care provider and have any questions regarding this report, please contact the number below. For patients who have questions please contact the health health care sanitary technician that requested your imaging first. Abdomen 1 view (Generic) (Exam End: 07/03/2023 9:00 PM) Result Value WORKSTATION ID [id number] Narrative EXAMINATION: XR ABDOMEN 1 VIEW (GENERIC) CLINICAL HISTORY: s/p NGT placement TECHNIQUE: Portable abdominal radiograph, single image COMPARISON: CT abdomen pelvis 07/02/2023 FINDINGS: Enteric tube projects below the diaphragm with tip and side port projecting over the stomach. Surgical clips project over the gallbladder fossa. EKG leads are present. Shunt catheter tubing projects over the right hemithorax. Linear calcification projecting over the right hemidiaphragm localizing to the subcutaneous fat on prior CT. Air-filled dilated loops of bowel within the lower abdomen measuring up to 6.2 cm in caliber. Skin isabella project over the lower abdomen. Impression Enteric tube tip and side-port project over the stomach. Thank you for letting us participate in the care of this patient. If you are a health care provider and have any questions regarding this report, please contact the number below. For patients who have questions please contact the health health care sanitary technician that requested your imaging first. A/P: Chapin Costa is a 52 y.o. 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 AROBF, IVF [place] out 10-14 days Neuro: - Analgesia: Acetaminophen and Dilaudid IV - Continue home Abilify, sertraline CV: - Hx of HTN and HLD: Continue home atorvastatin and metoprolol Pulm: - No acute issues - Encourage IS/OOB GI: - Diet: NPO diet (Give Meds) - SBO likely 2/2 adhesive disease FEN: - No acute issues - Electrolytes: Replete K>4, PO4>2.5, Mg>1 : - Voiding spontaneously ID: - No indication for antibiotics at this time Heme: - No acute issues Endo: - Hx of hypothyroidism: Restart home levothyroxine MSK: - BMI: Obesity-Grade I (30.0-34.9) - OOB, PT/OT PPX: - SCDs and Subcutaneous heparin Dispo: - Floor - Code: Attempt Cardiopulmonary Resuscitation - Inpatient Delgado Denis MD 07/04/2023 Service Pager: [phone] Associated attestation - Reuben Thibodeaux MD - 07/06/2023 3:34 PM EDT I have seen the patient in person and reviewed the above history and I agree with the details as written. The assessment and plan were formulated in discussion with me and I agree with them as documented. Reuben Thibodeaux MD * Belem Kay MD - 07/03/2023 11:24 PM EDT Acute Care Surgery Post-Operative Progress Note Chapin Costa 07/03/2023 Surgery/Issue: Procedure(s): 07/02: small bowel resection with BITA Surgeon: Surgeon(s) and Role: * Arely Murray MD - Primary * Delgado Denis MD - Resident - Assisting Date of surgery: 07/03/2023 Findings: Dense interloop adhesions resulting in >3 hours of lysis of adhesions. Firm mass palpated in small bowel and 20 cm of jejunum was resected to remove the object. Bowel opened on the back table and a piece of broccoli was identified. Entire small bowel run from LOT to TI. Subjective/Events: Pt was seen and examined. Pain well controlled. Denies nausea, vomiting, chest pain, shortness of breath, numbness/weakness. KUB with evidence of NGT in place (final read pending) PACU labs WNL Objcetive: Temp: [36.3 ??C (97.3 ??F)-36.8 ??C (98.2 ??F)] Heart Rate: [82-100] Resp: [12-26] BP: (113-140)/(80-90) Intake/Output Summary (Last 24 hours) at 07/03/2023 2319 Last data filed at 07/03/2023 2200 Gross per 24 hour Intake 2000 ml Output 1050 ml Net 950 ml Lab Results Component Value Date NA 135 07/03/2023 K 3.7 07/03/2023 CL 104 07/03/2023 CO2 20 (L) 07/03/2023 BUN 17 07/03/2023 CREATININE 1.05 07/03/2023 GLUCOSE 181 07/03/2023 CALCIUM 8.6 07/03/2023 Lab Results Component Value Date WBC 17.7 (H) 07/03/2023 HGB 16.6 (H) 07/03/2023 HCT 49.2 (H) 07/03/2023 MCV 88.3 07/03/2023 PLATELET 358 (H) 07/03/2023 Lab Results Component Value Date INR 1.2 06/16/2023 Exam: General: appears in no acute distress, A/O x 3 HEENT: NC/AT- NGT to [facility] Chest: CTA b/l, no w/r/r Cardiac: RRR Abdomen: soft, appropriately tender /ND, benign Extremity: no c/c/e Incision: dressing c/d/i. No evidence of hematoma/seroma/infection A/P: Chapin Costa is a 52 y.o. male patient s/p above procedure 1. Pain- controlled by PROCESS SAFETY MANAGER + IV tylenol+ lido patches 2. Nausea- denies 3. Specific c/o- none 4. Volume status- Urine output adequate, continue with IVF, will monitor 5. DVT prophylaxis- SCDs 6. Diet:NPO diet (Give Meds) 7. Requested Imaging: KUB for NGT position 8. Disposition- Floor status 9. NGT to [facility] 10. Keep augustine - AUOP Belem Kay MD Acute Care Surgery Pager [phone] * Rhoda Gorman RN - 07/03/2023 8:39 PM EDT 2015- Pt arrived to PACU 10 from OR, attached to monitors and alarms set appropriate for pt. Midline incision with scant drainage. Right NGT continued on LCWS. Augustine in place draining clear yellow urine. 2144- Pt has met d/c criteria from the PACU, report given to Arnoldo LEON on L3WD * Laila Ricci MD - 07/03/2023 9:16 AM EDT Brief NSGY Progress Note Visited patient this morning. From neurologic standpoint he is doing very well and there is no concern at this time for shunt dysfunction. His incisions from his recent revision are healing well. No further NSGY interventions or evaluation needed at this time. We will continue to be available if there are any questions or concerns, but will otherwise see him in clinic as previously planned for postop care. Laila Ricci MD 07/03/2023 * Og Kaye RN - 07/03/2023 7:21 AM EDT Patient arrived to the unit at approximately 2009. Patient oriented to room and call shell system. Patient educated to utilize call shell when needing to ambulate for the purpose of fall and injury prevention. Questions encouraged and answered. Patient Alert and oriented, VSS and able to make needs known. No acute events this shift. * Isac Yadav MD - 07/03/2023 7:00 AM EDT [facility] Inpatient Progress Note Patient: Chapin Costa : 1970 Room: [address] [place] [address] Admit date: 07/02/2023 Attending: Reuben Thibodeaux MD ID: Chapin Costa is a 52 y.o. 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 Admitted for a closedloop small bowel obstruction. Subjective/24hr Events: - No acute events overnight. - Afebrile, vital signs stable. - NPO, no nausea or vomiting. - Denies fevers, chills, chest pain, shortness of breath, worsening pain. Current Medications: sodium chloride 0.9 % (flush) 5 mL Intravenous BID acetaminophen 1,000 mg Intravenous Q6H DAMIEN heparin (porcine) 5,000 Units Subcutaneous Q8H DAMIEN ARIPiprazole 10 mg Oral Daily atorvastatin 10 mg Oral Daily levothyroxine 25 mcg Oral Daily metoprolol succinate XL 25 mg Oral Daily pantoprazole EC 40 mg Oral Daily sertraline 100 mg Oral Daily Objective: Last value Range last 24hrs Temperature Temp: 36.8 ??C (98.2 ??F) Temp: [36.2 ??C (97.2 ??F)-36.8 ??C (98.2 ??F)] Heart Rate Heart Rate: 70 Heart Rate: [59-84] Blood Pressure BP: 126/84 BP: (119-152)/(73-103) Respiratory Rate Resp: 16 Resp: [12-22] SpO2 SpO2: 94 % SpO2: [93 %-98 %] No intake or output data in the 24 hours ending 07/03/23 1043 Physical Exam: General: NAD, resting comfortably. HEENT: NCAT, EOMI, MMM. Neck supple. Cardiac: Nontachycardic. Chest: Equal chest rise. Normal WOB on RA. Abdomen: Soft, mildly TTP in mid abdomen, distended. Well-healed surgical scar over the abdomen. : No Augustine. MSK: Moving all 4 extremities spontaneously. Neuro/Psych: A&Ox3. Appropriate mood. Labs: Recent Labs 07/03/23 0246 07/02/23 1502 WBC 12.1* 15.8* HGB 15.9 17.1* HCT 46.3 49.7* PLATELET 245 253 Recent Labs 07/03/23 0246 07/02/23 1502 NA 138 134* K 3.7 4.0 CL 105 101 CO2 18* 19* BUN 15 16 CREATININE 1.10 1.07 GLUCOSE 102 101 CALCIUM 9.0 9.6 MAGNESIUM 0.87 0.87 PHOS 3.0 -- Micro: Lab Results Component Value Date BLOODCX No growth at 5 days. 06/16/2023 Imaging/Studies: Results for orders placed or performed during the hospital encounter of 07/02/23 XR Shunt Series (Exam End: 07/02/2023 3:43 PM) Result Value WORKSTATION ID [id number] Narrative EXAMINATION: XR SHUNT SERIES CLINICAL HISTORY: evaluate shunt TECHNIQUE: AP and lateral views of the head, chest and abdomen (7 images) COMPARISON: Radiographs June 15 and June 29, 2023 FINDINGS: Intracranial shunt tip is at midline via a high right frontal approach. The programmable shunt valve is not positioned to evaluate setting. Tubing along the right neck and anterior chest is intact with slight kink where it enters the upper right chest wall. Incomplete shunt segments are seen at the right neck and chest. No intra-abdominal shunt segment is seen. Several surgical clips in the abdomen. No fracture. Lungs are clear. A single left upper quadrant loop of small bowel measures 3.7 cm, otherwise nonobstructive bowel gas pattern. Impression Proximal shunt catheter tubing is well delineated and intact to the level of mid chest, but its distal and abdominal segments are not identified. This is based on patient body habitus and portable radiograph exposure. Of note, a CT abdomen pelvis has been ordered. Thank you for letting us participate in the care of this patient. If you are a health care provider and have any questions regarding this report, please contact the number below. For patients who have questions please contact the health health care sanitary technician that requested your imaging first. Electronically signed by: Emerita Bernstein MD, [facility] ([phone]), at 07/02/2023 3:[address] Head wo Contrast (Generic) (Exam End: 07/02/2023 3:49 PM) Result Value WORKSTATION ID [id number] Narrative EXAMINATION: CT HEAD WO CONTRAST (GENERIC) CLINICAL HISTORY: recurrent epigastric abdominal pain and emesis in patient with STEELSCOPE OPERATOR shunt, Pt with PMH of congenital hydrocephalus with recent shunt revision on 06/28 (ventriculopleural shunt placed due to complication with ventriculoperitoneal shunt), intraabdominal abscesses managed now on abx, and partial SBO on 06/27 TECHNIQUE: CT head performed without intravenous contrast administration. COMPARISON: Head CT 06/16/2023 FINDINGS: There is no acute intracranial hemorrhage or mass effect. Right frontal approach ventricular shunt is in stable position. Collapsed ventricular morphology is stable, with mild asymmetric distention of the temporal horn of the right lateral ventricle. There is no interval attenuation abnormality of the brain parenchyma. No interval osseous findings. Mastoids, middle ear spaces and imaged paranasal sinuses are normally aerated. Impression Stable brain CT with attention to ventricular morphology. No acute findings. Thank you for letting us participate in the care of this patient. If you are a health care provider and have any questions regarding this report, please contact the number below. For patients who have questions please contact the health health care sanitary technician that requested your imaging first. Abdomen & Pelvis w Contrast (Exam End: 07/02/2023 3:49 PM) Result Value WORKSTATION ID [id number] Narrative EXAMINATION: CT ABDOMEN AND PELVIS W CONTRAST CLINICAL HISTORY: recurrent epigastric abdominal pain and emesis, Pt with PMH of congenital hydrocephalus with recent shunt revision on 06/28 (ventriculopleural shunt placed due to complication with ventriculoperitoneal shunt), intraabdominal abscesses managed now on abx, and partial SBO on 06/27 TECHNIQUE: Helical CT of the abdomen and pelvis following the intravenous administration of contrast. Administered 113.0 ml of OMNIPAQUE 350.00 mg/ml. Oral contrast was not administered. COMPARISON: CT from 06/28/2023 FINDINGS: Lower chest: Interval placement of a shunt catheter in the right posterior pleural space with small right pleural effusion and mild right basilar atelectasis. Liver: Normal size and overall attenuation. Stable small area of hypodensity in segment 4A most likely represents focal fatty infiltration. Bile ducts: Nondilated. Gallbladder: Surgically absent. Pancreas: Normal attenuation without ductal dilatation. Spleen: Normal. Adrenals: Normal. Kidneys: Normal. Urinary Bladder: Normal. Vasculature: No abdominal aortic aneurysm. Lymph Nodes: No enlarged lymph nodes. Bowel: Increased dilation of a segment of fluid-filled small bowel with probable proximal and distal transition points in the anterior left abdomen along the abdominal wall in the vicinity of an anterior abdominal wall metallic clip (series 4 image [id number] and series 4 image [id number]). The more distal small bowel and colon are relatively decompressed. No pneumatosis or portal venous gas. Peritoneum and retroperitoneum: No free fluid or loculated fluid collection. No pneumoperitoneum. Abdominal wall: No hernia. Small fat-containing inguinal hernias. Reproductive organs: Normal. Osseous structures: No suspicious lesions. Impression 1. Increased dilation of a segment of mid small bowel in the left abdomen with proximal and distal transition points suspicious for a closed-loop obstruction. This could be related to anterior abdominal wall adhesions or possible internal hernia. 2. No intra-abdominal abscess or free air. 3. Intervertebral placement of a right pleural shunt catheter with small right pleural effusion and right basilar atelectasis. These findings were communicated to Dr. Nuñez by Dr. Graham at 4:15 PM on 07/02/2023 via secure chat. Thank you for letting us participate in the care of this patient. If you are a health care provider and have any questions regarding this report, please contact the number below. For patients who have questions please contact the health health care sanitary technician that requested your imaging first. A/P: Chapin Costa is a 52 y.o. 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 Plan to keep him NPO and go to OR for a diagnostic lap, lysis of adhesions, possible bowel resection in next 24 hrs. Neuro: - Analgesia: Acetaminophen and Dilaudid IV - Continue home Abilify, sertraline CV: - Hx of HTN and HLD: Continue home atorvastatin and metoprolol Pulm: - No acute issues - Encourage IS/OOB GI: - Diet: NPO diet (Give Meds) - SBO likely 2/2 adhesive disease - Plan for OR for diagnostic lap FEN: - No acute issues - Electrolytes: Replete K>4, PO4>2.5, Mg>1 : - Voiding spontaneously ID: - No indication for antibiotics at this time Heme: - No acute issues Endo: - Hx of hypothyroidism: Restart home levothyroxine MSK: - BMI: Obesity-Grade I (30.0-34.9) - OOB, PT/OT PPX: - SCDs and Subcutaneous heparin Dispo: - Floor - Code: Attempt Cardiopulmonary Resuscitation - Inpatient Isac Yadav MD 07/03/2023 Service Pager: [phone] documented in this encounter H&P Notes * John Clements MD - 07/02/2023 5:52 PM EDT [facility] Department of General Surgery H&P Note History of Present Illness: Chapin Costa is [...] obstruction for which general surgery was consulted. 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 PRO ALVEOLOPLASTY W EXTRACTIONS, 4 OR MORE TEETH, PER QUADRANT N/A 10/18/2020 ALVEOPLASTY,IN CONJUNCTION WITH EXTRACTIONS,PER QUADRANT,ENT (WRVU 4.06) performed by Shan Rivero MD at [facility] OSC PRO EXTRACTION, ERUPTED TOOTH OR EXPOSED ROOT N/A 10/18/2020 EXTRACTION, ERUPTED TOOTH OR EXPOSED ROOT (WRVU 0.62) performed by Shan Rivero MD at [facility] OSC PRO IMPACT TOOTH REM BONY W/COMP N/A 10/18/2020 SURGICAL EXTRACTIONS, REMOVAL OF IMPACTED TOOTH, COMPLETELY BONY WITH UNUSUAL SURGICAL COMPLICATIONS (WRVU 2.91) performed by Shan Rivero MD at [facility] OSC PRO IMPACT TOOTH REMOV COMP BONY N/A 10/18/2020 SURGICAL EXTRACTIONS, REMOVAL OF IMPACTED TOOTH, COMPLETELY BONY (WRVU 1.93) performed by Shan Rivero MD at [facility] OSC PRO REMOVAL ERUPTED TOOTH WITH ELEVATION OF MUCOPERIOSTEAL FLAP Bilateral 10/18/2020 SURGICAL EXTRACTIONS REQUIRING ELEVATION OF MUCOPERIOSTEAL FLAP AND REMOVAL OF BONE OR SECTION OF TOOTH (WRVU 1.09) performed by Shan Rivero MD at [facility] OSC PRO REMOVAL, COMPLETE CSF SHUNT, W/O REPLACE Right 06/20/2023 @REMOVAL OF COMPLETE CSF SHUNT, W/O REPLACEMENT (WRVU 7.38) [facility]PLACEMENT/REVISION, CSF SHUNT Right 06/09/2023 REVISION OR REPLACEMENT CSF SHUNT (WRVU 11.43) performed by Rhoda Jimenez MD at [facility] OR PRO REPLACEMENT/REVISION, CSF SHUNT Right 06/29/2023 REVISION OR REPLACEMENT CSF SHUNT (WRVU 11.43) performed by Rhoda Jimenez MD at [facility] CSI PRO UNLISTED PROCEDURE NERVOUS SYSTEM Right 05/24/2022 EXPLORATION VENTRICULO-PERITONEAL SHUNT (WRVU 25.48) performed by Rhoda Jimenez MD at [facility] OR SHOULDER SURGERY ULNAR TUNNEL RELEASE Right VENTRICULOPERITONEAL SHUNT Multiple revisions - ~46 prior revisions Medications No current facility-administered medications on file prior to encounter. Current Outpatient Medications on File Prior to Encounter Medication Sig Dispense Refill calcium carbonate (TUMS) 200 mg calcium (500 mg) chewable tablet Take 1 tablet by mouth every 6 hours as needed (Abdominal cramping). cyclobenzaprine (Flexeril) 10 mg tablet Take 1 tablet by mouth every 8 hours as needed for Muscle spasms (abdominal and chest wall). 6 tablet 0 amoxicillin-clavulanate (Augmentin) 875-125 mg tablet Take 1 tablet by mouth 2 times daily for 28 days. 56 tablet 0 senna-docusate (Pericolace) 8.6-50 mg Tablet Take 2 tablets by mouth 2 times daily as needed for Constipation. 60 tablet 0 atorvastatin (Lipitor) 10 mg tablet Take 10 mg by mouth daily. hydrOXYzine (Atarax) 25 mg tablet Take 25 mg by mouth daily. cholecalciferol, Vitamin D3, 50 mcg (2,000 unit) Capsule Take by mouth daily. omeprazole (PriLOSEC) [address] capsule Take by mouth daily. Vitamin B-12 5,000 mcg Tablet, Sublingual Take by mouth daily. ARIPiprazole (Abilify) 10 mg tablet Take 10 mg by mouth daily. polyethylene glycoL (Miralax) 17 gram oral powder packet Take 17 g by mouth daily as needed. 14 each 0 Aimovig Autoinjector 70 mg/mL Auto-Injector Inject 70 mg as directed every 30 days. On the of every month benztropine (Cogentin) 0.5 mg Tablet Take 1 tablet by mouth nightly. acetaminophen (Tylenol) 500 mg Tablet Take 500 mg by mouth every 6 hours as needed. T Latuda 40 mg Tablet Take 40 mg by mouth every evening. rizatriptan (MAXALT) 10 mg Tablet Take 1 tablet by mouth as needed for Migraine. 10 tablet 0 metoprolol succinate XL (Toprol-XL) 25 mg Tablet Sustained Release 24 hr Take 25 mg by mouth daily. topiramate (TOPAMAX) 25 mg Tablet Take 1 tablet by mouth 2 times daily. 60 tablet 5 levothyroxine (SYNTHROID) 25 mcg Tablet Take 25 mcg by mouth daily. sertraline (ZOLOFT) 100 mg Tablet Take 100 mg by mouth daily. 0 testosterone cypionate (DEPOTESTOSTERONE CYPIONATE) 200 mg/mL Oil Inject 250 mg into the muscle every 14 days. 0 Allergies Allergies Allergen Reactions Latex Other reaction(s): hives with latex powdered gloves Other reaction(s): hives with latex powdered gloves Penicillins Rash Pt reports taking PCN IV [...] challenge on 06/22/23 & ampicillin-sulbactam on 06/23/23. Tegaderm [Transparent Dressings] Itching and Other (See Comments) Patient needs no sting barrier wipes prior to Tegaderm application. Tolerates Tegaderm dressing post-application of skin barrier without itching/hives per patient. Vancomycin Hives and Itching Other reaction(s): Skin Rash Administering IV Benadryl prior to each Vancomycin dose seems to alleviate the reaction/allergy. Vancomycin Analogues Vancomycin Hcl Family History: Family History Problem Relation Age of Onset Muscular Dystrophy Cousin Social History: Social History Socioeconomic History Marital status: Spouse name: Not on file Number of children: Not on file Years of education: Not on file Highest education level: Not on file Occupational History Not on file Tobacco Use Smoking status: Never Smokeless tobacco: Never Vaping Use Vaping Use: Never used Substance and Sexual Activity Alcohol use: No Drug use: No Sexual activity: Not on file Other Topics Concern Not on file Social History Narrative Not on file Social Determinants of Health Financial Resource Strain: Not on file Food Insecurity: No Food Insecurity (06/18/2023) Hunger Vital Sign Worried About Running Out of Food in the Last Year: Never true Ran Out of Food in the Last Year: Never true Transportation Needs: No Transportation Needs (06/18/2023) PRAPARE - Transportation Lack of Transportation (Medical): No Lack of Transportation (Non-Medical): No Physical Activity: Not on file Intimate Partner Violence: Not At Risk (07/02/2023) DH IPV Inpatient Questions Prevent Contact with Others: no Feels Threatened by Someone: no Feels Unsafe at Home: no Physical Signs of Abuse Present: no Housing Stability: Low Risk (06/18/2023) Housing Stability Vital Sign Unable to Pay for Housing in the Last Year: No Number of Places Lived in the Last Year: 1 Unstable Housing in the Last Year: No Review of Systems: As stated above, otherwise negative Physical Exam: Temp: [36.2 ??C (97.2 ??F)] Heart Rate: [68-84] Resp: [18-19] BP: (133-140)/(87-98) SpO2: [94 %-96 %] Heart Rate from SpO2: -- General: alert, no acute distress Head: Atraumatic, non cyanotic Cardiac: Regular rate and rhythm Pulmonary: no increased work of breathing on RA Abdominal: Mildly turgid, minimally TTP in the mid abdomen and epigastrium, nontender elsewhere, moderately distended, well-healed surgical scar over the abdomen Neuro: grossly intact, follows commands, AAO x3. Extremities: Warm and well-perfused Labs: Recent Labs 07/02/23 1502 06/30/23 0602 06/29/23 0326 WBC 15.8* 16.0* 12.4* HGB 17.1* 17.1* 17.4* HCT 49.7* 49.7* 51.4* PLATELET 253 257 284 Recent Labs 07/02/23 1502 06/30/23 0602 06/29/23 0326 NA 134* 138 140 K 4.0 4.1 3.9 CL 101 107 106 CO2 19* 21* 21* BUN 16 15 19 CREATININE 1.07 1.36 1.36 Recent Labs 07/02/23 1502 06/08/23 1835 AST -- 14 ALT 14 19 ALKPHOS 98 109 BILITOT 0.6 0.7 Recent Labs 07/02/23 1502 06/28/23 0558 06/27/23 2159 CALCIUM 9.6 < > 9.9 PHOS -- -- 3.9 < > = values in this interval not displayed. No results for input(s): PT, INR, PTT in the last 168 hours. No results for input(s): CK, TROPONINT, PROBNP in the last 168 hours. Recent Labs 06/16/23 1120 CRP 107.8* SEDRATE 47* Imaging: Results for orders placed or performed during the hospital encounter of 07/02/23 XR Shunt Series (Exam End: 07/02/2023 3:43 PM) Result Value WORKSTATION ID [id number] Impression Proximal shunt catheter tubing is well delineated and intact to the level of mid chest, but its distal and abdominal segments are not identified. This is based on patient body habitus and portable radiograph exposure. Of note, a CT abdomen pelvis has been ordered. Thank you for letting us participate in the care of this patient. If you are a health care provider and have any questions regarding this report, please contact the number below. For patients who have questions please contact the health health care sanitary technician that requested your imaging first. Electronically signed by: Emerita Bernstein MD, [facility] ([phone]), at 07/02/2023 3:[address] Head wo Contrast (Generic) (Exam End: 07/02/2023 3:49 PM) Result Value WORKSTATION ID [id number] Impression Stable brain CT with attention to ventricular morphology. No acute findings. Thank you for letting us participate in the care of this patient. If you are a health care provider and have any questions regarding this report, please contact the number below. For patients who have questions please contact the health health care sanitary technician that requested your imaging first. Abdomen & Pelvis w Contrast (Exam End: 07/02/2023 3:49 PM) Result Value WORKSTATION ID [id number] Impression 1. Increased dilation of a segment of mid small bowel in the left abdomen with proximal and distal transition points suspicious for a closed-loop obstruction. This could be related to anterior abdominal wall adhesions or possible internal hernia. 2. No intra-abdominal abscess or free air. 3. Intervertebral placement of a right pleural shunt catheter with small right pleural effusion and right basilar atelectasis. These findings were communicated to Dr. Nuñez by Dr. Graham at 4:15 PM on 07/02/2023 via secure chat. Thank you for letting us participate in the care of this patient. If you are a health care provider and have any questions regarding this report, please contact the number below. For patients who have questions please contact the health health care sanitary technician that requested your imaging first. Impression: Chapin Costa is a 52 y.o. 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 He represents with recurrence of his symptoms and a likely chronic, partial closed loop SBO Plan: -Admit to ACS -Bowel rest, n.p.o., maintenance fluids -At this time no indication for nasogastric tube decompression, however if the patient develops recurrence of nausea/emesis low threshold for NGT placement and KUB confirmation -Plan for OR tomorrow if able pending availability, consented -Dvt ppx Dispo: Floor, Attempt Cardiopulmonary Resuscitation - Inpatient John Clements MD General Surgery Consult Pager [phone] Associated attestation - Reuben Thibodeaux MD - 07/03/2023 6:47 AM EDT I have seen the patient in person and reviewed the above history and I agree with the details as written. The assessment and plan were formulated in discussion with me and I agree with them as documented. Pt recently underwent STEELSCOPE OPERATOR shunt externalization, post-op course was complicated by N/V where CT scanperformed showed no significant obstruction, but a loop of bowel did have mild dilation and small amount of fecalization. He was discharged, but now returns with increasing N/V. CT scan again performed that showe mild increase in dilation of small bowel and more fecalization around the same area. On exam, soft, mildly distended, minimal pain, -rebound/guarding. Given worsening dilation and fecalization, will plan OR for diagnostic lap, lysis of adhesions, possible bowel resection in next 24-48 hrs Reuben Thibodeaux MD documented in this encounter ED Notes * Daniel Armstrong RN - 07/02/2023 7:54 PM EDT Report given to EDWARD Garrett * Bernice An MD - 07/02/2023 2:42 PM EDT ED Resident Note HPI: Chapin Costa is a 52 y.o. male who presents to the Emergency Department with epigastric abdominal pain. He is accommpanied by his mother. Mr. Costa has had two hospitalizations in the last month, preceding his current symptoms. He presented to the emergency department on 06/07 with progressive abdominal pain and was found to have a fracture of his STEELSCOPE OPERATOR shunt catheter in the distal abdominal wall. He was hospitalized 06/07-06/10/2023 and underwent revision of his STEELSCOPE OPERATOR shunt, which was repaired by splicing with a metal connector. He represented to the emergency department on 06/15 with progressive headache and abdominal pain, and was found to have distal discontinuity of his shunt and WBC of 18. CT abdomen pelvis revealed multiple abdominal fluid collections, and he was admitted to neurosurgery service. On 06/19, he underwentoperation to remove distal portion of the STEELSCOPE OPERATOR shunt, with cultures obtained. Cultures grew E. Faecali s, and his broad spectrum antibiotics were then narrowed to ampicillin sulbactam. CSF cultures werenegative. On 06/27 he was found to have partial SBO, which resolved by 06/28. On 06/28, he had a new R-sided ventriculo-pleural cather placed. He was discharged on 06/29 on a 3-4 week course of Augmentin 875-125mg PO BID with plans to repeat imaging in 3-4 weeks. He notes that he had mild abdominal pain at discharge on 06/29, but attributed that to recent surgery. However, abdominal pain worsened and he then developed emesis on 06/30. He has been unable to hold down any food or drink. Given continued symptoms, he presented to the emergency department. He currently endorses sharp, 9/10 epigastric abdominal pain. Also notes a new cough. He reports that he had asmall, loose bowel movement this morning. He has not tried any [id number] medications, as he would not be able to keep them down due to recurrent emesis. He denies any headache, chest pain, shortness of breath, hematuria, dysuria, or numbness or tingling. He has continued on Augmentin for treatment of his intraabdominal infection. Social history: He lives at home with his support dog. He does not work, as he is on disability. His mother has been aiding in his care following recent discharge. ROS as per HPI Vitals: ED Triage Vitals [07/02/23 1336] BP: (!) 140/98 Heart Rate: 68 Resp: n/a Temp: 36.2 ??C (97.2 ??F) Temp src: Temporal SpO2: 96 % O2 Device: RA O2 Flow Rate (L/min): n/a Physical Exam General: 52 y.o. male sitting in chair comfortably, in no acute distress. HEENT: Wound dressings present on R lateral head. Eyes with baseline disconjugate gaze. Cardiovascular: Regular rate and rhythm. No murmurs. Respiratory: Clear to auscultation bilaterally. No increased work of breathing. Abdominal: Normoactive bowel sounds appreicated in all 4 quadrants. Abdomen is distended. Epigastric tenderness to light palpation. No guarding. Extremities: Warm, well-perfused. No peripheral edema. Neurologic: Alert. Hearing intact to voice. Speech and language fluent. Moving extremities spontaneously. Skin: R upper chest wall incision without fluctuance or erythema. RUQ abdominal incision covered with surgical glue, healing appropriately, no fluctuance or erythema. Incisional scars present on the abdomen. Psychiatric: Responding appropriately. Thought content linear and logical. ED Course: I have reviewed labs and imaging, images and available reports, and they are significant for: ED Course as of 07/02/23 1833 Sandra July 02, 2023 1524 WBC 15.8 (16 on 06/29) Hgb 17.1 (chronic elevation) 1604 CT Head wo Contrast (Generic) No acute change or intracranial process. Shunt position stable CT Head wo Contrast (Generic) Final Result Stable brain CT with attention to ventricular morphology. No acute findings. Thank you for letting us participate in the care of this patient. If you are a health care provider and have any questions regarding this report, please contact the number below. For patients who have questions please contact the health health care sanitary technician that requested your imaging first. Abdomen & Pelvis w Contrast Final Result 1. Increased dilation of a segment of mid small bowel in the left abdomen with proximal and distal transition points suspicious for a closed-loop obstruction. This could be related to anterior abdominal wall adhesions or possible internal hernia. 2. No intra-abdominal abscess or free air. 3. Intervertebral placement of a right pleural shunt catheter with small right pleural effusion and right basilar atelectasis. These findings were communicated to Dr. Nuñez by Dr. Graham at 4:15 PM on 07/02/2023 via secure chat. Thank you for letting us participate in the care of this patient. If you are a health care provider and have any questions regarding this report, please contact the number below. For patients who have questions please contact the health health care sanitary technician that requested your imaging first. Shunt Series Final Result Proximal shunt catheter tubing is well delineated and intact to the level of mid chest, but its distal and abdominal segments are not identified. This is based on patient body habitus and portable radiograph exposure. Of note, a CT abdomen pelvis has been ordered. Thank you for letting us participate in the care of this patient. If you are a health care provider and have any questions regarding this report, please contact the number below. For patients who have questions please contact the health health care sanitary technician that requested your imaging first. Electronically signed by: Emerita Bernstein MD, [facility] ([phone]), at 07/02/2023 3:54 PM XR Abdomen Flat & Upright (Results Pending) Assessment and Plan: 52 y.o. male with acute epigastric abdominal pain following recent hospitalization with ventriculoperitoneal shunt revision, now with ventriculopleural shunt, as well intraabdominal abscesses now on Augmentin as outpatient. Hospitalization was complicated by small bowel obstruction on 06/28. Given recent history, differential diagnoses include recurrent small bowel obstruction, worsening of intraabdominal infection, and further shunt malfunction. At this time, he has no focal neurologic symptoms,so an acute shunt issue seems less likely. CT abdomen/pelvis revealed possible closed loop small bowel obstruction, and did not identify any intraabdominal abscesses. General surgery was consulted given SBO. He will be admitted to surgery service for further management. Providing IV tylenol for pain control. The visit findings, diagnosis, and care plan were discussed with the patient. Bernice An MD Resident 07/02/23 2803 Associated attestation - Aria Nuñez MD - 07/03/2023 11:54 AM EDT ED ATTENDING ATTESTATION NOTE The patient was seen in conjunction with the resident physician. I have independently performed thekey portions of the history and physical exam. I have reviewed the diagnostic studies including labs, imaging studies and EKGs. I have discussed the details of the case with the resident and agree with the assessment and plan as described in the resident note unless noted below or in my separate note. 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 Shunt had fractured in abdominal wall - did revision and DC 2 days later. Returned on the for abdominal pain again and found to have shunt discontinuity and abd fluid collection. Cultured - e.faecalis, IV abx then narrowed to augmentin and had another revision. 1617 Surgery paged for closed loop SBO Surgery plans to admit. * Jeremy Harris PA - 07/02/2023 1:34 PM EDT Brief Provider Triage Note: Name: Chapin Costa : 1970 Date of Service: 07/02/2023 Chief Complaint: Abdominal Pain History of Present Illness: 52 y.o. y/o male with hx of congenital hydrocephalus s/p shunt revision 3 days ago presents c/o abdominal pain. Patient had recent admission where he was found to have abdominal abscesses which required temporary repositioning of his shunt. Patient states for the past 3 days he has had abdominal pain, nausea, vomiting, decreased appetite. No fevers or chills. Vitals: BP (!) 140/98 (BP Location (NBP): Left arm, Patient Position: Sitting) Pulse 68 Temp 36.2 ??C (97.2 ??F) (Temporal) SpO2 96% Brief Physical Exam: General: A&Ox4, No acute distress. Speaking in full sentences. Eyes: PERRL Lungs: No respiratory distress MSK: Moving all extremities. Neuro: Answering questions appropriately. Plan: CBC, CMP, Lipase, Mg, UA, Xr flat and upright Re-examination Further diagnosis and management in ED Jeremy Harris PA 07/02/23 1339 documented in this encounter Miscellaneous Notes * Care Management Discharge - Brenda Beckford RN - 07/08/2023 12:00 PM EDT CARE MANAGEMENT FINAL DISCHARGE NOTE Chart reviewed, care reviewed with primary team and at interdisciplinary rounds. Patient is medically ready for discharge per primary team. Needs for Transition of Care: Plan for discharge is: Home w/o Services Outpatient Agency/Support Group Needs: None Agency Referrals & Follow-up Care:n/a Transportation: family or friend will provide Functional status prior to admission: Independent Home Environment: Others in the home: parent(s). Current Living Arrangements: home/apartment/condo. Accessibility Concerns:3 level apartment with elevator access. Current Functional Ability: Assistive Person DME used at home: other (see comments) (CPAP machine) DME Needed at Discharge: none Patient is insured through: Primary Insurance: MEDICARE Payor: MEDICARE / Plan: MEDICARE PART A & B / Product Type: *No Product type* / Secondary Insurance: MEDICAID [place] Prescription Coverage: Yes This plan was formulated with input from patient and team. All are in agreement with plan. Brenda Beckford RN-, [facility] Surgery Nurse Facility Rehab Director [phone] , Pager [phone] * Plan of Care - Yessenia Candelario RN - 07/08/2023 2:14 AM EDT OUTCOME EVALUATION NOTE: OUTCOME SUMMARY: A&O x 4. VSS on RA. OOB to BR w/ walker, stand-by assist. Independent in bed, frequent T+P encouraged. Call shell within reach. Bed alarm on. Safety and fall precautions maintained. PLAN MOVING FORWARD: Pain control Mobilize D/c planning INDIVIDUALIZED FALL PREVENTION: Patient is currently a high risk to Fall. Patient educated on bed/chair alarm, demonstrates proper use of call shell and verbalizes understanding of fall preventions implemented. Patient-specific fall risk factors per assessment: Pain, Medications, Hospital Environment. Assistance: OOB to BR w/ walker, stand-by assist. Supervision: Assist x 1 with ADL's. Surveillance: Masimo, Purposeful Rounding, Nurse Knowledge Exchange. Problem: Adult Inpatient Plan of Care Goal: [...] Outcome: Ongoing (Interventions Implemented as Appropriate) Problem: Bowel Motility Impaired (Surgery Nonspecified) Goal: Effective Bowel Elimination Outcome: Ongoing (Interventions Implemented as Appropriate) Problem: Infection (Surgery Nonspecified) Goal: Absence of Infection Signs and Symptoms Outcome: Ongoing (Interventions Implemented as Appropriate) Problem: Pain (Surgery Nonspecified) Goal: Acceptable Pain Control Outcome: Ongoing (Interventions Implemented as Appropriate) Problem: Postoperative Urinary Retention (Surgery Nonspecified) Goal: Effective Urinary Elimination Outcome: Ongoing (Interventions Implemented as Appropriate) Problem: Fall Injury Risk Goal: Absence of Fall and Fall-Related Injury Outcome: Ongoing (Interventions Implemented as Appropriate) * Plan of Care - Selena Odonnell LPN - 07/07/2023 1:16 PM EDT Pt A&O X4 , VSS on RA, denies CP, SOB, N/T, nausea/vomiting. Patient progressing towards d/c goals appropriately at this time. Patient's pain adequately controlled with scheduled pain medicationsand PRN, see MAR for medications given. Patient PROCESS SAFETY MANAGER pump and NG tube discontinued. Patient ambulating. Incision intact and open to air. No further concerns of present. LBM: 07/07/2023 Plan of care ongoing. PLAN MOVING FORWARD: Pain control Monitor incision site Patient-specific fall risk factors per assessment: [current deficits]: recent procedure, PROCESS SAFETY MANAGER, continuous IVF, hospital environment Assistance [level of assistance required for transfers and ambulation]: x1 Supervision [direct monitoring required during toileting and ADLs]: eyes on Surveillance [continuous indirect monitoring]: Alannah Goinsful Rounding, Nurse Knowledge Exchange Problem: Adult Inpatient Plan of Care Goal: [...] Outcome: Ongoing (Interventions Implemented as Appropriate) Problem: Bowel Motility Impaired (Surgery Nonspecified) Goal: Effective Bowel Elimination Outcome: Ongoing (Interventions Implemented as Appropriate) Problem: Infection (Surgery Nonspecified) Goal: Absence of Infection Signs and Symptoms Outcome: Ongoing (Interventions Implemented as Appropriate) Problem: Pain (Surgery Nonspecified) Goal: Acceptable Pain Control Outcome: Ongoing (Interventions Implemented as Appropriate) Problem: Postoperative Urinary Retention (Surgery Nonspecified) Goal: Effective Urinary Elimination Outcome: Ongoing (Interventions Implemented as Appropriate) Problem: Fall Injury Risk Goal: Absence of Fall and Fall-Related Injury Outcome: Ongoing (Interventions Implemented as Appropriate) * Plan of Care - Yessenia Candelario RN - 07/07/2023 12:59 AM EDT OUTCOME EVALUATION NOTE: OUTCOME SUMMARY: A&O x 4. VSS on RA. OOB to BR w/ walker, stand-by assist. Independent in bed, frequent T+P encouraged. Call shell within reach. Bed alarm on. Safety and fall precautions maintained. PLAN MOVING FORWARD: Pain control Mobilize D/c planning INDIVIDUALIZED FALL PREVENTION: Patient is currently a high risk to Fall. Patient educated on bed/chair alarm, demonstrates proper use of call shell and verbalizes understanding of fall preventions implemented. Patient-specific fall risk factors per assessment: Pain, Medications, Hospital Environment. Assistance: OOB to BR w/ walker, stand-by assist. Supervision: Assist x 1 with ADL's. Surveillance: Masimo, Purposeful Rounding, Nurse Knowledge Exchange. Problem: Adult Inpatient Plan of Care Goal: [...] Outcome: Ongoing (Interventions Implemented as Appropriate) Problem: Bowel Motility Impaired (Surgery Nonspecified) Goal: Effective Bowel Elimination Outcome: Ongoing (Interventions Implemented as Appropriate) Problem: Infection (Surgery Nonspecified) Goal: Absence of Infection Signs and Symptoms Outcome: Ongoing (Interventions Implemented as Appropriate) Problem: Pain (Surgery Nonspecified) Goal: Acceptable Pain Control Outcome: Ongoing (Interventions Implemented as Appropriate) Problem: Postoperative Urinary Retention (Surgery Nonspecified) Goal: Effective Urinary Elimination Outcome: Ongoing (Interventions Implemented as Appropriate) Problem: Fall Injury Risk Goal: Absence of Fall and Fall-Related Injury Outcome: Ongoing (Interventions Implemented as Appropriate) * Plan of Care - Selena Odonnell LPN - 07/06/2023 3:07 PM EDT OUTCOME EVALUATION NOTE: OUTCOME SUMMARY: Pt A&O X4 , VSS on RA, denies CP, SOB, N/T, nausea/vomiting. Patient progressing towards d/c goals appropriately at this time. Patient's pain adequately controlled with scheduled pain medicationsand PRN, see MAR for medications given. Patient PROCESS SAFETY MANAGER pump and NG rube were discontinued. Oob to chair. Incision intact. No further concerns of present. Plan of care ongoing. PLAN MOVING FORWARD: OOB/ mobilize Pain control Monitor incision site Patient-specific fall risk factors per assessment: [current deficits]: recent procedure, PROCESS SAFETY MANAGER, continuous IVF, hospital environment Assistance [level of assistance required for transfers and ambulation]: x1 Supervision [direct monitoring required during toileting and ADLs]: eyes on Surveillance [continuous indirect monitoring]: Masveronicao, Purposeful Rounding, Nurse Knowledge Exchange Problem: Adult Inpatient Plan of Care Goal: [...] Outcome: Ongoing (Interventions Implemented as Appropriate) Problem: Bowel Motility Impaired (Surgery Nonspecified) Goal: Effective Bowel Elimination Outcome: Ongoing (Interventions Implemented as Appropriate) Problem: Infection (Surgery Nonspecified) Goal: Absence of Infection Signs and Symptoms Outcome: Ongoing (Interventions Implemented as Appropriate) Problem: Pain (Surgery Nonspecified) Goal: Acceptable Pain Control Outcome: Ongoing (Interventions Implemented as Appropriate) Problem: Postoperative Urinary Retention (Surgery Nonspecified) Goal: Effective Urinary Elimination Outcome: Ongoing (Interventions Implemented as Appropriate) * Care Management - Fatou Ayon RN - 07/06/2023 11:05 AM EDT OFFICE OF CARE MANAGEMENT PROGRESS NOTE LOS: Hospital Day 4 days Chart reviewed, care reviewed with primary team and at interdisciplinary rounds. Patient continues to meet inpatient level of care related to: small bowel obstruction. Decision Maker: Self Functional status prior to admission: Independent Home Environment: Others in the home: parent(s). Current Living Arrangements: home/apartment/condo. Accessibility Concerns: 3 level apartment with elevator access. Current Functional Ability: Assistive Person DME used at home: other (see comments) (CPAP machine) DME Needed at Discharge: No Patient is insured through: Primary Insurance: MEDICARE Payor: MEDICARE / Plan: MEDICARE PART A & B / Product Type: *No Product type* / Secondary Insurance: MEDICAID [place] Last Physical Therapy Recommendation: with Last Occupational Therapy Recommendation: with Plan for discharge is: Home w/o Services Outpatient Agency/Support Group Needs: None Transportation: family or friend will provide Barriers to discharge: None Plan going forward: PROCESS SAFETY MANAGER continues, isabella to be removed 07-14 to 07-18, NGT gravity trial today and get patient OOB. Care Management will continue to follow and assist with discharge planning and coordination of care as indicated. Anticipated Date of Discharge: 07/07/2023 Fatou TOSCANO RN * Plan of Care - Dorota Martin RN - 07/06/2023 7:42 AM EDT OUTCOME EVALUATION NOTE: OUTCOME SUMMARY: Pain well controlled only with scheduled medication and without PROCESS SAFETY MANAGER. Pt did not use PROCESS SAFETY MANAGER throughout the shift. Dressing on midline has small dried drainage. Its outline was marked with a marker. Pt istolerating clear liquid diet. Pt slept between care. Will continue monitoring. Call shell within reach. Pt has only 1x IV access. LR paused in order to give K-phos via IV; K-phos and LR are not compatible. The team paged and notified. PLAN MOVING FORWARD: Mobilize BM Pain management D/C planning INDIVIDUALIZED FALL PREVENTION INTERVENTIONS: Patient-specific fall risk factors per assessment: [current deficits]: PROCESS SAFETY MANAGER, lines and tubes, unfamiliar environment Assistance [level of assistance required for transfers and ambulation]: No out of bed in this shift Supervision [direct monitoring required during toileting and ADLs]: Eyes on Surveillance [continuous indirect monitoring]: daria Goins within reach, room by nurse station, purposeful rounding Patient-specific fall prevention interventions for sensory deficits provided, if applicable: [X] N/A CARE PLAN GOAL OUTCOME EVALUATION: Problem: Adult [...] Outcome: Ongoing (Interventions Implemented as Appropriate) Problem: Bowel Motility Impaired (Surgery Nonspecified) Goal: Effective Bowel Elimination Outcome: Ongoing (Interventions Implemented as Appropriate) Problem: Infection (Surgery Nonspecified) Goal: Absence of Infection Signs and Symptoms Outcome: Ongoing (Interventions Implemented as Appropriate) Problem: Pain (Surgery Nonspecified) Goal: Acceptable Pain Control Outcome: Ongoing (Interventions Implemented as Appropriate) Problem: Postoperative Urinary Retention (Surgery Nonspecified) Goal: Effective Urinary Elimination Outcome: Ongoing (Interventions Implemented as Appropriate) * Plan of Care - Amadou Martinez RN - 07/05/2023 1:26 PM EDT OUTCOME EVALUATION NOTE: OUTCOME SUMMARY: Oob to chair. Encouraged to use PROCESS SAFETY MANAGER for pain control. Incision has small but stable amount of drieddrainage. Tolerated NGT clamp trial PLAN MOVING FORWARD: NGT care OOB/ mobilize Pain control Monitor incision site INDIVIDUALIZED FALL PREVENTION INTERVENTIONS: Patient-specific fall risk factors per assessment: [current deficits]: recent procedure, PROCESS SAFETY MANAGER, continuous IVF, hospital environment Assistance [level of assistance required for transfers and ambulation]: x1 Supervision [direct monitoring required during toileting and ADLs]: eyes on Surveillance [continuous indirect monitoring]: heidi Lofton Patient-specific fall prevention interventions for sensory deficits provided, if applicable: [X] N/A * Plan of Care - Aria Arredondo RN - 07/05/2023 6:51 AM EDT Pt's VSS on RA. Pt's abdomen tender, distended, midline dressing intact. Pain managed with PROCESS SAFETY MANAGER. Denies chest pain/discomfort, N/V numbness/tingling, SOB. NGT remains in place to CLWS. See flowsheet for output. Augustine patent and secured with nidhi UO. No BM this shift. Pt able to take PO medication without issue. Remains NPO, IVF infusing as ordered. Care ongoing. * Plan of Care - Amadou Martinez RN - 07/04/2023 1:53 PM EDT OUTCOME EVALUATION NOTE: OUTCOME SUMMARY: Patient encouraged to use PROCESS SAFETY MANAGER to control Pain. Pain controlled at 4-5 this shift. Midline CDI. No concerns at this time. PLAN MOVING FORWARD: Pain control Mobilize PROCESS SAFETY MANAGER Monitor Bms/ passing gas INDIVIDUALIZED FALL PREVENTION INTERVENTIONS: Patient-specific fall risk factors per assessment: [current deficits]: hospital environment, recentprocedure, PROCESS SAFETY MANAGER, Assistance [level of assistance required for transfers and ambulation]: x2 Supervision [direct monitoring required during toileting and ADLs]: eyes on Surveillance [continuous indirect monitoring]: heidi lofton Patient-specific fall prevention interventions for sensory deficits provided, if applicable: [X] N/A * Brief Op Note - Arely Murray MD - 07/03/2023 8:04 PM EDT Brief Operative Note Patient Name: Chapin Costa : [id number] MR#: [id number] Case Date: 07/03/2023 Surgeon: Surgeon(s) and Role: * Arely Murray MD - Primary * Delgado Denis MD - Resident - Assisting Preoperative diagnosis: SBO Postoperative diagnosis: SBO Procedure(s) (LRB): @BOWEL RESECTION, SMALL INTESTINE SINGLE ANASTOMOSIS (WRVU 20.82) (N/A) Anesthesia: General Findings: Dense interloop adhesions resulting in >3 hours of lysis of adhesions. Firm mass palpated in small bowel and 20 cm of jejunum was resected to remove the object. Bowel opened on the back table and a piece of broccoli was identified. Entire small bowel run from LOT to TI. Complications: none Estimated Blood Loss: 400 mL Specimens removed during surgery: Order Name Source Comment Collection Info Order Time SPECIMEN TO PATHOLOGY SBO jejunum excision 07/03/2023 7:23 PM Time specimen removed from patient: 7:23 PM Number of tissue samples (in container) 1 Fluids: 1900 mls PRBCs: none (See Anesthesia Record/Report for Other Blood Products) Urine Output: 500 mL Drains: none Disposition: awakened from anesthesia, extubated and taken to the recovery room in a stable condition, having suffered no apparent untoward event. Condition: doing well without problems (Please see the Surgical Encounter Summary for any Implant and Specimen details pertinent to this patient.) Surgical Infection Prevention Bundle Used? No * Plan of Care - Amadou Martinez RN - 07/03/2023 5:24 PM EDT OUTCOME EVALUATION NOTE: OUTCOME SUMMARY: Remains at procedure. PLAN MOVING FORWARD: Pain control post procedure Mobilize as able Incision care INDIVIDUALIZED FALL PREVENTION INTERVENTIONS: Patient-specific fall risk factors per assessment: [current deficits]: post procedure, hospital environment Assistance [level of assistance required for transfers and ambulation]: x2 Supervision [direct monitoring required during toileting and ADLs]: eyes on Surveillance [continuous indirect monitoring]: quin Goins Patient-specific fall prevention interventions for sensory deficits provided, if applicable: [X] N/A * Initial Assessments - Brenda Beckford RN - 07/03/2023 3:36 PM EDT Office of Care Management Initial Assessment Brenda Beckford RN reviewed record and discussed patient with Care Team. Source of Information: Team, bedside nurse, medical record, and Patient Introduced self/reviewed role; services accepted. 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 Current Decision-Making Capacity: Guardian Name(s) of Court Appointed Guardian(s): Tracy Fregoso (Guardian) Advance Care Planning: Attempt Cardiopulmonary Resuscitation - Inpatient <no information> -Advanced Directive: Other Current Coping/Education/Information Needs: coping with hospital stay, awaiting surgery, mother at bedside Current Functional Ability: Assistive Person Functional Status Prior to Admission: Independent Prior ADLs & IADLs: Independent with all ADLs & IADLs Home Environment: Others in the home: parent(s). Current Living Arrangements: home/apartment/condo. Accessibility Concerns:3 level apartment with elevator access. In the last 12 months, was there a time when you were not able to pay the mortgage or rent on time?: No In the last 12 months, how many places have you lived?: 1 In the last 12 months, was there a time when you did not have a steady place to sleep or slept in ashelter (including now)?: No In the past 12 months has the electric, gas, oil, or water [employer] threatened to shut off services in your [...] needed for daily living?: No Current DME: other (see comments) (CPAP machine) Home Address confirmed as: [address] [facility] [address] Social & Family Supports: All names listed below confirmed with patient as current and correct Extended Emergency Contact Information Primary Emergency Contact: IldefonsoTracy Address: [address] [place] [address] [place] Mobile Relation: Guardianship Secondary Emergency Contact: RICH FREGOSO Address: [address] [place] [address] Mobile Relation: Step parent Current Care Provided by: self Provides Primary Care For: no one Caregiver if needed: parent(s) Quality of Family relationships: supportive, helpful Community Resources being provided currently: none Behavioral Health History: none reported Substance Use/Abuse confirmed: Social History Tobacco Use Smoking Status Never Smokeless Tobacco Never In the past year have you used an illegal drug or used a prescription medication for non-medical reasons?: No 0 No problems reported 1-2 Low level 3-5 Moderate level 6-8 Substantial level 9- 10 Severe level In the past year have you had 5 or more drinks a day containing alcohol?: No 0 to 7 points: Low risk 8 to 15 points: Medium risk 16 to 19 points: High risk 20 to 40 points: Addiction likely Other Pertinent/Service Specific Information: Health/Prescription Coverage: Primary Insurance: MEDICARE Payor: MEDICARE / Plan: MEDICARE PART A & B / Product Type: *No Product type* / Secondary Insurance: MEDICAID [place] ONLY if patient has Medicare A&B - Does this patient have secondary insurance?: Yes ; Prescription Coverage: Yes Preferred Pharmacy: [facility] [address] [place] [id number] [place] [address] [address] [place] [id number] [place] Status: Patient is a : Primary Care Provider confirmed: MARVA Gordon [phone] Patient/Caregiver Goals of Treatment: Potential Needs for Transition of Care: other (see comments) (pending hospital course, in agreementto resume HH services with [facility] if indicated) Agency Referrals: tbd Transportation: no concerns Transportation Anticipated: family or friend will provide Concerns to be Addressed: discharge planning Assessment: Patient is admitted to ACS service for management of SBO. Plan: OR today for diagnostic lap, lysis of adhesions, possible bowel resection, discharge needs pending hospital course. A member of the Care Management team will continue to monitor progress, follow for continuity of care and assist with transition of care planning. Brneda Beckford RN-[facility] Surgery Nurse Facility Rehab Director [phone] , Pager [phone] * Op Note - Arely Murray MD - 07/03/2023 3:11 PM EDT [facility] Operative Note Patient Name: Chapin Costa : [id number] MR#: [id number] Case Date: 07/03/2023 Surgeon: Surgeon(s) and Role: * Arely Murray MD - Primary * Delgado Denis MD - Resident - Assisting Preoperative diagnosis: SBO Postoperative diagnosis: SBO Procedure(s) (LRB): @BOWEL RESECTION, SMALL INTESTINE SINGLE ANASTOMOSIS (WRVU 20.82) (N/A) Findings: Dense interloop adhesions resulting in >3 hours of lysis of adhesions. Firm mass palpated in small bowel and 20 cm of jejunum was resected to remove the object. Bowel opened on the back table and a piece of broccoli was identified. Entire small bowel run from LOT to TI. Anesthesia: General Estimated Blood Loss: 400 mL Specimens removed during surgery: Order Name Source Comment Collection Info Order Time SPECIMEN TO PATHOLOGY SBO jejunum excision 07/03/2023 7:23 PM Time specimen removed from patient: 7:23 PM Number of tissue samples (in container) 1 Drains: None Surgical Closure: Primary Closure - skin incision is completely closed without any wires, serena, drains or other devices Disposition: awakened from anesthesia, extubated and taken to the recovery room in a stable condition, having suffered no apparent untoward event. Condition: doing well without problems (Please see the Surgical Encounter Summary for any Implant and Specimen details pertinent to this patient.) HPI/Surgical Indications: Chapin Costa is a 52 y.o. 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 During his prior admission, it was thought thatan intra-abdominal fluid collection and intra-abdominal CP shunt could be contributing to his abdominal sx and poor PO intake. After shunt removal and readmission, his prolonged poor PO intake and FTT warranted further exploration. The decision was made to pursue operative intervention given his extensive prior abdominal surgical hx and CT concern for closed loop obstruction and multiple transition points in the small bowel. Procedure Description: The patient was taken to the operating room and positioned supine on the operating room table. General anesthesia was induced and the patient was orotracheally intubated. The patient was prepped and draped in the usual sterile fashion. A surgical timeout was conducted and alloperating room members were in agreement with the surgery as planned. Of note, approximately 5 minutes after the case had begun, the latex augustine was removed after it wasrecognized that the patient had a latex allergy. There was no untoward consequence that we could recognize from this during the duration of the case and a augustine was placed at the conclusion of the case. We began with an upper midline incision and dissected down through the fascia and sharply divided the peritoneum. We then embarked on approximately 4 hours the lysis of adhesions's working through multiple peritonealized layers of the small bowel. 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 At certain points, patches of peritoneum were left on the small bowel as we dissected between various layers. Ultimately we were able to identify the ligament of Treitz, and continue our dissection distally. Once we were able to identify the cecum and ileocecal valve, we then proceeded to lyse adhesions deep into the right lower quadrant in order to pull a loop of terminal ileum/distal jejunum out of the pelvis. We were unable to do so safely and we left this loop in the pelvis. During the course of our dissection we did make two partial- thickness serosal injuries which was not unexpected given the dense nature of the adhesions: one was in the mid jejunum and less than 1 cm in diameter which was repaired with Lembert silk sutures. Another approximately 3 cm was made more distal in the jejunum and was also repaired with interrupted silk Lembert sutures. In the mid jejunum we were able tofeel a hard mass which was milked down to the area of small bowel between our 2 prior serosal injuries. Of note, the small bowel was diffusely dilated and patulous. The mid jejunum was notable for a nest of small bowel which was the only area of small bowel that we were unable to completely lyse and run individually, however there was no acute abnormality of this portion of the intestine. The visualized portion of the ascending and transverse colon was normal, however we did not dissect far enough down into the left paracolic gutter in order to get a full visualization of the descending colon. There were dense adhesions between the terminal ileum/distal jejunum and the right lower quadrant (as previously mentioned) which appeared to be adherent to the sigmoid colon and so we did not persist with this dissection and thus did not clearly view all of the sigmoid colon either. Once we were ultimately pleased with our lysis of adhesions of the small intestine, we then decidedto resect a portion of the jejunum to include the larger of our 2 serosal injuries which were previously repaired and the hard mass which was palpated within the intestinal lumen. We used 2 sequential firings of the JAGDISH stapler with a blue load to resect approximately 15 cm of jejunum. The jejunum was opened on the back table and we identified a large piece of undigested broccoli which was apparent in the lumen. We then completed our anastomosis with another firing of the JAGDISH 75 blue load stapler in order to create a common channel and the common enterotomy was closed with a TX stapler 60 mm with a blue load. The stapled corners of our anastomosis were oversewed with silk sutures. The mesenteric defect was closed with a running vicryl suture. The staple line appeared hemostatic and the anastomosis was widely patent. The abdomen was irrigated and hemostasis was achieved. The fascia was cl osed with a running PDS suture and the skin was approximated with isabella. Primapore dressing was applied. All counts were correct at the conclusion of the case. Surgical Infection Prevention Bundle Used? No Attestation: Case Date: 07/03/2023 I was present and I participated during the entire procedure (does not need to include opening and closing). ARELY MURRAY MD 07/06/2023 * Consult Note - Mel Simmons [facility] - 07/02/2023 9:51 PM EDT TelePharmacy Home Medication List Update for Medication Reconciliation 07/02/23 9:51 PM Chapin Costa 1970 Allergies Allergen Reactions Latex Other reaction(s): hives with latex powdered gloves Other reaction(s): hives with latex powdered gloves Penicillins Rash Pt reports taking PCN IV [...] challenge on 06/22/23 & ampicillin-sulbactam on 06/23/23. Tegaderm [Transparent Dressings] Itching and Other (See Comments) Patient needs no sting barrier wipes prior to Tegaderm application. Tolerates Tegaderm dressing post-application of skin barrier without itching/hives per patient. Vancomycin Hives and Itching Other reaction(s): Skin Rash Administering IV Benadryl prior to each Vancomycin dose seems to alleviate the reaction/allergy. Vancomycin Analogues Vancomycin Hcl Person Interviewed: patient Quality of Interview/accuracy of medication list: good Sources used to compile medication list: [x] Epic medication list [x] SureScripts/Dispense Report [] PCP/Specialist list [] Retail pharmacy [] Patient list [] MAR [] Other Changes made to home medication list: Additions: None Deletions: Latuda Flexeril Vitamin D Cogentin Changes: Sertraline 200mg po daily (was 100mg daily) Topamax 25mg po daily (was bid) Additional Notes: Updated medication list with information provided by patient. Recommended changes: None The home medication list is now updated to the best of my knowledge and is ready to be reconciled by the provider. Please contact the TelePharmacy Medication Reconciliation Pharmacist at for any questions. Mel Simmons RPH * Consult Note - Lisa Bautista MD - 07/02/2023 3:21 PM EDT [facility] NEUROSURGERY CONSULT NOTE ID: Chapin Costa, 52 y.o. male. : 1970 Consult Requesting Service: ED Reason for consult: Abd pain, emesis, n/v HISTORY OF PRESENT ILLNESS: Chapin Costa is a 52 y.o. 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 He was noted to have a partial SBO which resolved without need for surgical intervention. Was discharged home 06/29 in good condition. He presents today for persistent abdominal pain with inability to tolerate PO. No ALICEA, nausea, neurological changes, vision issues, or sensory deficits. He does endorse emesis with all intake aside from medications. Is taking amoxicillin and bowel reg per dc recommendations. No opiates given pain from surgery is mild. REVIEW OF SYSTEMS: As above in HPI, otherwise non-contributory. 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 Increased dilation of a segment [...] right pleural effusion and right basilar atelectasis. HCT IMPRESSION Stable brain CT with attention to ventricular morphology. No acute findings. XRSS IMPRESSION Proximal shunt catheter tubing is well delineated and intact to the level of mid chest, but its distal and abdominal segments are not identified. This is based on patient body habitus and portable radiograph exposure. Of note, a CT abdomen pelvis has been ordered. ASSESSMENT: 52 y.o. 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 He presents today with persistent abdominal pain and PO intolerance. He is wide awake and alert. Neurologically at baseline. CT CAP demonstrating c/f bowel obstruction. HCT and XRSS with no concern. PLAN/RECS: - No c/f shunt malfunction, it has been internalized into his pleural space and is not in communication with the abdomen - Abdominal pain workup and management per ED/consultants Lisa Bautista MD Case discussed with Dr. Jimenez, neurosurgery attending. Future Appointments Date Time Provider Department Center 07/15/2023 1:20 PM NURSE, NEUROSURGERY [facility] [id number] [facility] 07/15/2023 2:30 PM Valdo Awan MD [facility] ID [id number] [facility] 08/13/2023 11:40 AM Cl Atkins PA [facility] [id number] [facility] Neurosurgery Pager: [phone] Lisa Bautista MD 07/02/2023 3:22 PM Clinical Documentation Improvement: There are no hospital problems to display for this patient. PAST MEDICAL HISTORY: Past Medical History: Diagnosis Date Depression Hearing loss r ear Hydrocephalus associated with congenital aqueduct stenosis Hyperlipidemia Hypertension Memory disorder Seizures Syncope and collapse Vision abnormalities related to hydrocephalus PAST SURGICAL HISTORY: Past Surgical History: Procedure Laterality Date CARPAL TUNNEL RELEASE Right CHOLECYSTECTOMY, LAPAROSCOPIC IR ALL DRAINAGE PROCEDURES 06/18/2023 IR All Drainage Procedures Bentley Arceo MD [facility] INTERVENTIONL RAD PRO ALVEOLOPLASTY W EXTRACTIONS, 4 OR MORE TEETH, PER QUADRANT N/A 10/18/2020 ALVEOPLASTY,IN CONJUNCTION WITH EXTRACTIONS,PER QUADRANT,ENT (WRVU 4.06) performed by Shan Rivero MD at [facility] OSC PRO EXTRACTION, ERUPTED TOOTH OR EXPOSED ROOT N/A 10/18/2020 EXTRACTION, ERUPTED TOOTH OR EXPOSED ROOT (WRVU 0.62) performed by Shan Rivero MD at [facility] OSC PRO IMPACT TOOTH REM BONY W/COMP N/A 10/18/2020 SURGICAL EXTRACTIONS, REMOVAL OF IMPACTED TOOTH, COMPLETELY BONY WITH UNUSUAL SURGICAL COMPLICATIONS (WRVU 2.91) performed by Shan Rivero MD at [facility] OSC PRO IMPACT TOOTH REMOV COMP BONY N/A 10/18/2020 SURGICAL EXTRACTIONS, REMOVAL OF IMPACTED TOOTH, COMPLETELY BONY (WRVU 1.93) performed by Shan Rivero MD at [facility] OSC PRO REMOVAL ERUPTED TOOTH WITH ELEVATION OF MUCOPERIOSTEAL FLAP Bilateral 10/18/2020 SURGICAL EXTRACTIONS REQUIRING ELEVATION OF MUCOPERIOSTEAL FLAP AND REMOVAL OF BONE OR SECTION OF TOOTH (WRVU 1.09) performed by Shan Rivero MD at [facility] OSC PRO REMOVAL, COMPLETE CSF SHUNT, W/O REPLACE Right 06/20/2023 @REMOVAL OF COMPLETE CSF SHUNT, W/O REPLACEMENT (WRVU 7.38) [facility]PLACEMENT/REVISION, CSF SHUNT Right 06/09/2023 REVISION OR REPLACEMENT CSF SHUNT (WRVU 11.43) performed by Rhoda Jimenez MD at [facility] MA[facility] OR PRO REPLACEMENT/REVISION, CSF SHUNT Right 06/29/2023 REVISION OR REPLACEMENT CSF SHUNT (WRVU 11.43) performed by Rhoda Jimenez MD at [facility] CSI PRO UNLISTED PROCEDURE NERVOUS SYSTEM Right 05/24/2022 EXPLORATION VENTRICULO-PERITONEAL SHUNT (WRVU 25.48) performed by Rhoda Jimenez MD at [facility] MAIN OR SHOULDER SURGERY ULNAR TUNNEL RELEASE Right VENTRICULOPERITONEAL SHUNT Multiple revisions - ~46 prior revisions MEDICATIONS: No current facility-administered medications on file prior to encounter. Current Outpatient Medications on File Prior to Encounter Medication Sig Dispense Refill calcium carbonate (TUMS) 200 mg calcium (500 mg) chewable tablet Take 1 tablet by mouth every 6 hours as needed (Abdominal cramping). cyclobenzaprine (Flexeril) 10 mg tablet Take 1 tablet by mouth every 8 hours as needed for Muscle spasms (abdominal and chest wall). 6 tablet 0 amoxicillin-clavulanate (Augmentin) 875-125 mg tablet Take 1 tablet by mouth 2 times daily for 28 days. 56 tablet 0 senna-docusate (Pericolace) 8.6-50 mg Tablet Take 2 tablets by mouth 2 times daily as needed for Constipation. 60 tablet 0 atorvastatin (Lipitor) 10 mg tablet Take 10 mg by mouth daily. hydrOXYzine (Atarax) 25 mg tablet Take 25 mg by mouth daily. cholecalciferol, Vitamin D3, 50 mcg (2,000 unit) Capsule Take by mouth daily. omeprazole (PriLOSEC) [address] capsule Take by mouth daily. Vitamin B-12 5,000 mcg Tablet, Sublingual Take by mouth daily. ARIPiprazole (Abilify) 10 mg tablet Take 10 mg by mouth daily. polyethylene glycoL (Miralax) 17 gram oral powder packet Take 17 g by mouth daily as needed. 14 each 0 Aimovig Autoinjector 70 mg/mL Auto-Injector Inject 70 mg as directed every 30 days. On the of every month benztropine (Cogentin) 0.5 mg Tablet Take 1 tablet by mouth nightly. acetaminophen (Tylenol) 500 mg Tablet Take 500 mg by mouth every 6 hours as needed. T Latuda 40 mg Tablet Take 40 mg by mouth every evening. rizatriptan (MAXALT) 10 mg Tablet Take 1 tablet by mouth as needed for Migraine. 10 tablet 0 metoprolol succinate XL (Toprol-XL) 25 mg Tablet Sustained Release 24 hr Take 25 mg by mouth daily. topiramate (TOPAMAX) 25 mg Tablet Take 1 tablet by mouth 2 times daily. 60 tablet 5 levothyroxine (SYNTHROID) 25 mcg Tablet Take 25 mcg by mouth daily. sertraline (ZOLOFT) 100 mg Tablet Take 100 mg by mouth daily. 0 testosterone cypionate (DEPOTESTOSTERONE CYPIONATE) 200 mg/mL Oil Inject 250 mg into the muscle every 14 days. 0 ALLERGIES: Allergies Allergen Reactions Latex Other reaction(s): hives with latex powdered gloves Other reaction(s): hives with latex powdered gloves Penicillins Rash Pt reports taking PCN IV [...] challenge on 06/22/23 & ampicillin-sulbactam on 06/23/23. Tegaderm [Transparent Dressings] Itching and Other (See [...] Never Smokeless tobacco: Never Vaping Use Vaping Use: Never used Substance and Sexual Activity Alcohol use: No Drug use: No Sexual activity: Not on file Other Topics Concern Not on file Social History Narrative Not on file Social Determinants of Health Financial Resource Strain: Not on file Food Insecurity: No Food Insecurity (06/18/2023) Hunger Vital Sign Worried About Running Out of Food in the Last Year: Never true Ran Out of Food in the Last Year: Never true Transportation Needs: No Transportation Needs (06/18/2023) PRAPARE - Transportation Lack of Transportation (Medical): No Lack of Transportation (Non-Medical): No Physical Activity: Not on file Intimate Partner Violence: Not At Risk (07/02/2023) DH IPV Inpatient Questions Prevent Contact with Others: no Feels Threatened by Someone: no Feels Unsafe at Home: no Physical Signs of Abuse Present: no Housing Stability: Low Risk (06/18/2023) Housing Stability Vital Sign Unable to Pay for Housing in the Last Year: No Number of Places Lived in the Last Year: 1 Unstable Housing in the Last Year: No FAMILY HISTORY: Family History Problem Relation Age of Onset Muscular Dystrophy Cousin Associated attestation - Rhoda Jimenez MD - 07/13/2023 11:28 AM EDT I have seen and examined the patient, providing miramontes components as outlined below. I have reviewed the resident???s note; my evaluation of the patient is below: 52 y.o. gentleman well known to me for previous distal shunt malfunction with externalization and revision to ventriculo-pleural shunt several days ago due to abdominal infection. He is presenting with continued abdominal complaints and imaging is concerning for closed-loop bowel obstruction. From our perspective he is safe to undergo surgery as no part of his shunt is in the abdomen. His neurologic exam is reassuring as is his cranial imaging. We will sign off. * ED Triage - Ju Aldridge RN - 07/02/2023 1:34 PM EDT Had surgery - shunt revision 2 days, SBO from 2 weeks ago. Having Abd pain, midline, abd distended. 8/10 pain. +N/V. Decrease oral intake. HPI (Adult) Stated Reason for Visit: abd pain History Obtained From: patient documented in this encounter Plan of Treatment Not on file documented as of this encounter Procedures Procedure Name Priority Date/Time Associated Diagnosis Comments HEMOGRAM Routine 07/08/2023 3:38 AM EDT DIFFERENTIAL, AUTOMATED Routine 07/08/2023 3:38 AM EDT CBC (WITH DIFF) Routine 07/08/2023 3:38 AM EDT PHOSPHORUS Routine 07/08/2023 3:38 AM EDT MAGNESIUM Routine 07/08/2023 3:38 AM EDT BASIC METABOLIC PANEL Routine 07/08/2023 3:38 AM EDT HEMOGRAM Routine 07/07/2023 1:49 AM EDT DIFFERENTIAL, AUTOMATED Routine 07/07/2023 1:49 AM EDT CBC (WITH DIFF) Routine 07/07/2023 1:49 AM EDT PHOSPHORUS Routine 07/07/2023 1:49 AM EDT MAGNESIUM Routine 07/07/2023 1:49 AM EDT BASIC METABOLIC PANEL Routine 07/07/2023 1:49 AM EDT POCT GLUCOSE Routine 07/06/2023 7:58 PM EDT HEMOGRAM Routine 07/06/2023 3:53 AM EDT DIFFERENTIAL, AUTOMATED Routine 07/06/2023 3:53 AM EDT CBC (WITH DIFF) Routine 07/06/2023 3:53 AM EDT PHOSPHORUS Routine 07/06/2023 3:53 AM EDT MAGNESIUM Routine 07/06/2023 3:53 AM EDT BASIC METABOLIC PANEL Routine 07/06/2023 3:53 AM EDT HEMOGRAM Routine 07/05/2023 3:36 AM EDT DIFFERENTIAL, AUTOMATED Routine 07/05/2023 3:36 AM EDT CBC (WITH DIFF) Routine 07/05/2023 3:36 AM EDT PHOSPHORUS Routine 07/05/2023 3:36 AM EDT MAGNESIUM Routine 07/05/2023 3:36 AM EDT BASIC METABOLIC PANEL Routine 07/05/2023 3:36 AM EDT HEMOGRAM Routine 07/04/2023 2:01 AM EDT DIFFERENTIAL, AUTOMATED Routine 07/04/2023 2:01 AM EDT CBC (WITH DIFF) Routine 07/04/2023 2:01 AM EDT PHOSPHORUS Routine 07/04/2023 2:01 AM EDT MAGNESIUM Routine 07/04/2023 2:01 AM EDT BASIC METABOLIC PANEL Routine 07/04/2023 2:01 AM EDT XR ABDOMEN 1 VIEW Routine 07/03/2023 9:0 0 PM EDT HEMOGRAM Routine 07/03/2023 8:44 PM EDT DIFFERENTIAL, AUTOMATED Routine 07/03/2023 8:44 PM EDT CBC (WITH DIFF) Routine 07/03/2023 8:44 PM EDT BASIC METABOLIC PANEL Routine 07/03/2023 8:44 PM EDT BOWEL RESECTION,SM.INTESTINE SINGLE ANASTOMOSIS Routine 07/03/2023 8:03 PM EDT SURGICAL PATHOLOGY REPORT Routine 07/03/2023 7:23 PM EDT SPECIMEN TO PATHOLOGY Routine 07/03/2023 7:23 PM EDT Resect Small Intest, Singl Resec/Anas ([id number]) 07/03/2023 2:35 PM EDT SBO ABORH RECHECK STATUS Routine 07/03/2023 2:46 AM EDT HEMOGRAM Routine 07/03/2023 2:46 AM EDT DIFFERENTIAL, AUTOMATED Routine 07/03/2023 2:46 AM EDT CBC (WITH DIFF) Routine 07/03/2023 2:46 AM EDT TYPE AND SCREEN ([facility]ULCE MARIA) Routine 07/03/2023 2:46 AM EDT PHOSPHORUS Routine 07/03/2023 2:46 AM EDT MAGNESIUM Routine 07/03/2023 2:46 AM EDT BASIC METABOLIC PANEL Routine 07/03/2023 2:46 AM EDT URINALYSIS WITH REFLEX CULTURE STAT 07/02/2023 7:53 PM EDT LACTATE, WHOLE BLOOD Routine 07/02/2023 4:[address] ABDOMEN AND PELVIS W CONTRAST STAT 07/02/2023 3:[address] HEAD WO CONTRAST (GENERIC) STAT 07/02/2023 3:49 PM EDT XR SHUNT SERIES STAT 07/02/2023 3:43 PM EDT HEMOGRAM STAT 07/02/2023 3:02 PM EDT DIFFERENTIAL, AUTOMATED STAT 07/02/2023 3:02 PM EDT GOLD TUBE HOLD STAT 07/02/2023 3:02 PM EDT BLUE TUBE HOLD STAT 07/02/2023 3:02 PM EDT CBC (WITH DIFF) STAT 07/02/2023 3:02 PM EDT MAGNESIUM STAT 07/02/2023 3:02 PM EDT LIPASE STAT 07/02/2023 3:02 PM EDT COMPREHENSIVE METABOLIC PANEL STAT 07/02/2023 3:02 PM EDT documented in this encounter Results * (ABNORMAL) Differential, Automated (07/08/2023 3:38 AM EDT) Neutrophil % 68.6 % [facility] Neutrophil Absolute 7.56(H) 1.70 - 6.10 x10(3)/mc L [facility] Lymph % 20.0 % [facility] Lymphocytes Abs 2.2 0.9 - 3.2 x10(3)/ L [facility] Monocyte % 5.9 % [facility] Monocyte Abs 0.6 0.3 - 0.9 x10(3)/ L [facility] Eos % 4.2 % [facility] Eosinophils Abs 0.5(H) 0.0 - 0.4 x10(3)/ L [facility] Basophil % 0.8 % [facility] Baso Absolute 0.1 0.0 - 0.1 x10(3)/mc L [facility] Immature Gran % 0.50 % [facility] Comment: Immature granulocytes(IG's)percentage and absolute count will include metamyelocytes, myelocytes, and promyelocytes. Blood smears from CBCs yielding IG's will be scanned manually for concordance. If this scan disagrees with the automated IG or if promyelocytes are noted, a manual differential will be performed. Immature Gran Absolute 0.05(H) 0.00 - 0.04 x10(3)/ L [facility] Blood 07/08/2023 3:38 AM EDT 07/08/2023 3:58 AM EDT Narrative Resulting Agency Comment Spec In Lab Delgado Denis MD HEMATOLOGY ORDERABLE S [facility] [place] [address] * (ABNORMAL) Hemogram (07/08/2023 3:38 AM EDT) White Blood Cell 11.0(H) 4.0 - 9.5 x10(3)/mc L [facility] Red Blood Cell 4.00(L) 4.58 - 5.54 x10(6)/mc L [facility] Hemoglobin 11.8(L) 13.7 - 16.5 g/dL [facility] Hematocrit 35.7(L) 40.5 - 48.5 % [facility] Mean Cell Volume 89.3 82.9 - 93.1 fL [facility] Mean Cell Hemoglobin 29.5 27.5 - 32.1 pg [facility] Mean Cell Hemoglobin Concentration 33.1 32.0 - 35.7 g/dL [facility] Platelet 279 145 - 357 x10(3)/mc L [facility] RDW Standard Deviation 44.3 36.0 - 45.0 [facility] RDW coefficient of variation 13.4 11.4 - 13.8 % [facility] Mean Platelet Volume 9.4 7.6 - 12.9 fL [facility] NRBC% auto 0.0 % [facility] NRBC Absolute 0.000 0.000 - 0.000 x10(3)/mc L [facility] Blood 07/08/2023 3:38 AM EDT 07/08/2023 3:58 AM EDT Narrative Resulting Agency Comment Spec In Lab Delgado Denis MD HEMATOLOGY ORDERABLE S [facility] [place] [address] * Phosphorus (07/08/2023 3:38 AM EDT) Phosphorus 2.7 2.5 - 4.5 mg/dL [facility] Blood 07/08/2023 3:38 AM EDT 07/08/2023 3:58 AM EDT Narrative Resulting Agency Comment Spec In Lab Reuben Thibodeaux MD CHEMISTRY ORDERABLES Performing Organization Address [facility] Co de Phone Number [facility] [place] [address] * Magnesium (07/08/2023 3:38 AM EDT) Pathologist [facility] Magnesium 0.86 0.69 - 1.07 mmol/L [facility] Blood 07/08/2023 3:38 AM EDT 07/08/2023 3:58 AM EDT Narrative Resulting Agency Comment Spec In Lab Reuben Thibodeaux MD CHEMISTRY ORDERABLES Performing Organization Address [facility] de Phone Number [facility] [place] [address] * (ABNORMAL) Basic Metabolic Panel (non-fasting) (07/08/2023 3:38 AM EDT) Pathologist [facility] Glucose 116 65 - 199 mg/dL [facility] Comment:Diabetes: >=200 mg/d L plus symptoms Blood Urea Nitrogen 11 10 - 20 mg/dL [facility] Creatinine 0.86 0.80 - 1.50 mg/dL [facility] Sodium 138 135 - 145 mmol/L [facility] Potassium 3.7 3.5 - 5.0 mmol/L [facility] Comment: Please note: ??Patients with WBC >100,000 may have falsely elevated Potassium levels. ??For accurate Potassium quantification in these patients send serum separator tube (gold top) for subsequent determinations. ??Contact the Clinical Chemistry Laboratory if there are any questions. Chloride 108(H) 98 - 107 mmol/L [facility] Carbon Dioxide 21(L) 22 - 31 mmol/L [facility] Anion Gap 9 5 - 15 mmol/L [facility] Calcium 8.6 8.5 - 10.5 mg/dL [facility] Est Glomerular Filtration Rate 105 >=60 mL/min/1. 73 m?? [facility] Comment: This patient's estimated [...] and symptoms in addition to eGFR. Blood 07/08/2023 3:38 AM EDT 07/08/2023 3:58 AM EDT Narrative Resulting Agency Comment Spec In Lab Reuben Thibodeaux MD CHEMISTRY ORDERABLES [facility] [place] [address] * (ABNORMAL) Differential, Automated (07/07/2023 1:49 AM EDT) Neutrophil % 70.0 % [facility] Neutrophil Absolute 7.72(H) 1.70 - 6.10 x10(3)/mc L [facility] Lymph % 18.4 % [facility] Lymphocytes Abs 2.0 0.9 - 3.2 x10(3)/mc L [facility] Monocyte % 5.7 % [facility] Monocyte Abs 0.6 0.3 - 0.9 x10(3)/mc L [facility] Eos % 4.8 % [facility] Eosinophils Abs 0.5(H) 0.0 - 0.4 x10(3)/ L [facility] Basophil % 0.6 % [facility] Baso Absolute 0.1 0.0 - 0.1 x10(3)/[facility] Immature Gran % 0.50 % [facility] Comment: Immature granulocytes(IG's)percentage and absolute count will include metamyelocytes, myelocytes, and promyelocytes. Blood smears from CBCs yielding IG's will be scanned manually for concordance. If this scan disagrees with the automated IG or if promyelocytes are noted, a manual differential will be performed. Immature Gran Absolute 0.05(H) 0.00 - 0.04 x10(3)/[facility] Blood 07/07/2023 1:49 AM EDT 07/07/2023 2:13 AM EDT Narrative Resulting Agency Comment Spec In Lab Delgado Denis MD HEMATOLOGY ORDERABLE S [facility] [place] [address] * (ABNORMAL) Hemogram (07/07/2023 1:49 AM EDT) White Blood Cell 11.0(H) 4.0 - 9.5 x10(3)/[facility] Red Blood Cell 3.81(L) 4.58 - 5.54 x10(6)/ L [facility] Hemoglobin 11.3(L) 13.7 - 16.5 g/dL [facility] Hematocrit 34.9(L) 40.5 - 48.5 % [facility] Mean Cell Volume 91.6 82.9 - 93.1 fL [facility] Mean Cell Hemoglobin 29.7 27.5 - 32.1 pg [facility] Mean Cell Hemoglobin Concentration 32.4 32.0 - 35.7 g/dL [facility] Platelet 255 145 - 357 x10(3)/ L [facility] RDW Standard Deviation 47.1(H) 36.0 - 45.0 fL [facility] RDW coefficient of variation 13.8 11.4 - 13.8 % [facility] Mean Platelet Volume 9.4 7.6 - 12.9 fL [facility] NRBC% auto 0.0 % [facility] NRBC Absolute 0.000 0.000 - 0.000 x10(3)/mc L [facility] Blood 07/07/2023 1:49 AM EDT 07/07/2023 2:13 AM EDT Narrative Resulting Agency Comment Spec In Lab Delgado Denis MD HEMATOLOGY ORDERABLE S Performing Organization Address City/[facility]/Z[place] [address] * Phosphorus (07/07/2023 1:49 AM EDT) Phosphorus 3.3 2.5 - 4.5 mg/dL [facility] Blood 07/07/2023 1:49 AM EDT 07/07/2023 2:13 AM EDT Narrative Resulting Agency Comment Spec In Lab Reuben Thibodeaux MD CHEMISTRY ORDERABLES Performing Organization Address City/[facility]/ZIP Co de Phone Number [facility] [place] [address] * Magnesium (07/07/2023 1:49 AM EDT) Magnesium 0.86 0.69 - 1.07 mmol/L [facility] Blood 07/07/2023 1:49 AM EDT 07/07/2023 2:13 AM EDT Narrative Resulting Agency Comment Spec In Lab Reuben Thibodeaux MD CHEMISTRY ORDERABLES Performing Organization Address City/[facility]/ZIP Co de Phone Number [facility] [place] [address] * (ABNORMAL) Basic Metabolic Panel (non-fasting) (07/07/2023 1:49 AM EDT) Glucose 102 65 - 199 mg/dL [facility] Comment:Diabetes: >=200 mg/d L plus symptoms Blood Urea Nitrogen 12 10 - 20 mg/dL [facility] Creatinine 0.92 0.80 - 1.50 mg/dL [facility] Sodium 141 135 - 145 mmol/L [facility] Potassium 3.7 3.5 - 5.0 mmol/L [facility] Comment: Please note: ??Patients with WBC >100,000 may have falsely elevated Potassium levels. ??For accurate Potassium quantification in these patients send serum separator tube (gold top) for subsequent determinations. ??Contact the Clinical Chemistry Laboratory if there are any questions. Chloride 108(H) 98 - 107 mmol/L [facility] Carbon Dioxide 21(L) 22 - 31 mmol/L [facility] Anion Gap 12 5 - 15 mmol/L [facility] Calcium 8.6 8.5 - 10.5 mg/dL [facility] Est Glomerular Filtration Rate 101 >=60 mL/min/1. 73 m?? [facility] Comment: This patient's estimated [...] and symptoms in addition to eGFR. Blood 07/07/2023 1:49 AM EDT 07/07/2023 2:13 AM EDT Narrative Resulting Agency Comment Spec In Lab Reuben Thibodeaux MD CHEMISTRY ORDERABLES [facility] [place] [address] * POCT Glucose (07/06/2023 7:58 PM EDT) Pathologist [facility] Glucose, POC 95 65 - 199 mg/dL [facility] Comment: Supplemental ranges: <140 mg/dL before meals <180 mg/dL all other times of the day Blood 07/06/2023 7:58 PM EDT 07/06/2023 7:58 PM EDT Reuben Thibodeaux MD POINT OF CARE TEST O RDERABLES [facility] [place] [address] * (ABNORMAL) Differential, Automated (07/06/2023 3:53 AM EDT) [facility] Neutrophil % 70.4 % [facility] Neutrophil Absolute 8.72(H) 1.70 - 6.10 x10(3)/mc L [facility] Lymph % 18.6 % [facility] Lymphocytes Abs 2.3 0.9 - 3.2 x10(3)/mc L [facility] Monocyte % 5.4 % [facility] Monocyte Abs 0.7 0.3 - 0.9 x10(3)/mc L [facility] Eos % 4.7 % [facility] Eosinophils Abs 0.6(H) 0.0 - 0.4 x10(3)/mc L [facility] Basophil % 0.5 % [facility] Baso Absolute 0.1 0.0 - 0.1 x10(3)/mc L [facility] Immature Gran % 0.40 % [facility] Comment: Immature granulocytes(IG's)percentage and absolute count will include metamyelocytes, myelocytes, and promyelocytes. Blood smears from CBCs yielding IG's will be scanned manually for concordance. If this scan disagrees with the automated IG or if promyelocytes are noted, a manual differential will be performed. Immature Gran Absolute 0.05(H) 0.00 - 0.04 x10(3)/mc L [facility] Blood 07/06/2023 3:53 AM EDT 07/06/2023 4:05 AM EDT Narrative Resulting Agency Comment Spec In Lab Delgado Denis MD HEMATOLOGY ORDERABLE S [facility] [place] [address] * (ABNORMAL) Hemogram (07/06/2023 3:53 AM EDT) White Blood Cell 12.4(H) 4.0 - 9.5 x10(3)/ L [facility] Red Blood Cell 3.88(L) 4.58 - 5.54 x10(6)/[facility] Hemoglobin 11.6(L) 13.7 - 16.5 g/dL [facility] Hematocrit 34.6(L) 40.5 - 48.5 % [facility] Mean Cell Volume 89.2 82.9 - 93.1 fL [facility] Mean Cell Hemoglobin 29.9 27.5 - 32.1 pg [facility] Mean Cell Hemoglobin Concentration 33.5 32.0 - 35.7 g/dL [facility] Platelet 216 145 - 357 x10(3)/ L [facility] RDW Standard Deviation 44.2 36.0 - 45.0 [facility] RDW coefficient of variation 13.6 11.4 - 13.8 % [facility] Mean Platelet Volume 9.1 7.6 - 12.9 fL [facility] NRBC% auto 0.0 % [facility] NRBC Absolute 0.000 0.000 - 0.000 x10(3)/ L [facility] Blood 07/06/2023 3:53 AM EDT 07/06/2023 4:05 AM EDT Narrative Resulting Agency Comment Spec In Lab Delgado Denis MD HEMATOLOGY ORDERABLE S Performing Organization Address City/[facility]/ZIP Co de Phone Number [facility] [place] [address] * (ABNORMAL) Phosphorus (07/06/2023 3:53 AM EDT) Phosphorus 2.0(L) 2.5 - 4.5 mg/dL [facility] Blood 07/06/2023 3:53 AM EDT 07/06/2023 4:05 AM EDT Narrative Resulting Agency Comment Spec In Lab Reuben Thibodeaux MD CHEMISTRY ORDERABLES Performing Organization Address [facility] Co de Phone Number [facility] [place] [address] * Magnesium (07/06/2023 3:53 AM EDT) Magnesium 0.82 0.69 - 1.07 mmol/L [facility] Blood 07/06/2023 3:53 AM EDT 07/06/2023 4:05 AM EDT Narrative Resulting Agency Comment Spec In Lab Reuben Thibodeaux MD CHEMISTRY ORDERABLES Performing Organization Address [facility] Co de Phone Number [facility] [place] [address] * Basic Metabolic Panel (non-fasting) (07/06/2023 3:53 AM EDT) Glucose 91 65 - 199 mg/dL [facility] Comment:Diabetes: >=200 mg/d L plus symptoms Blood Urea Nitrogen 11 10 - 20 mg/dL [facility] Creatinine 0.89 0.80 - 1.50 mg/dL [facility] Sodium 138 135 - 145 mmol/L [facility] Potassium 3.7 3.5 - 5.0 mmol/L [facility] Comment: Please note: ??Patients with WBC >100,000 may have falsely elevated Potassium levels. ??For accurate Potassium quantification in these patients send serum separator tube (gold top) for subsequent determinations. ??Contact the Clinical Chemistry Laboratory if there are any questions. Chloride 106 98 - 107 mmol/L [facility] Carbon Dioxide 22 22 - 31 mmol/L [facility] Anion Gap 10 5 - 15 mmol/L [facility] Calcium 8.5 8.5 - 10.5 mg/dL [facility] Est Glomerular Filtration Rate 104 >=60 mL/min/1. 73 m?? [facility] Comment: This patient's estimated [...] and symptoms in addition to eGFR. Blood 07/06/2023 3:53 AM EDT 07/06/2023 4:05 AM EDT Narrative Resulting Agency Comment Spec In Lab Reuben Thibodeaux MD CHEMISTRY ORDERABLES [facility] [place] [address] * (ABNORMAL) Differential, Automated (07/05/2023 3:36 AM EDT) Neutrophil % 73.8 % [facility] Neutrophil Absolute 10.85(H) 1.70 - 6.10 x10(3)/mc L [facility] Lymph % 16.6 % [facility] Lymphocytes Abs 2.4 0.9 - 3.2 x10(3)/mc L [facility] Monocyte % 5.8 % [facility] Monocyte Abs 0.9 0.3 - 0.9 x10(3)/ L [facility] Eos % 2.8 % [facility] Eosinophils Abs 0.4 0.0 - 0.4 x10(3)/[facility] Basophil % 0.5 % [facility] Baso Absolute 0.1 0.0 - 0.1 x10(3)/[facility] Immature Gran % 0.50 % [facility] Comment: Immature granulocytes(IG's)percentage and absolute count will include metamyelocytes, myelocytes, and promyelocytes. Blood smears from CBCs yielding IG's will be scanned manually for concordance. If this scan disagrees with the automated IG or if promyelocytes are noted, a manual differential will be performed. Immature Gran Absolute 0.07(H) 0.00 - 0.04 x10(3)/[facility] Blood 07/05/2023 3:36 AM EDT 07/05/2023 4:10 AM EDT Narrative Resulting Agency Comment Spec In Lab Delgado Denis MD HEMATOLOGY ORDERABLE S [facility] [place] [address] * (ABNORMAL) Hemogram (07/05/2023 3:36 AM EDT) White Blood Cell 14.7(H) 4.0 - 9.5 x10(3)/ L [facility] Red Blood Cell 4.58 4.58 - 5.54 x10(6)/ L [facility] Hemoglobin 13.6(L) 13.7 - 16.5 g/dL [facility] Hematocrit 41.0 40.5 - 48.5 % [facility] Mean Cell Volume 89.5 82.9 - 93.1 fL [facility] Mean Cell Hemoglobin 29.7 27.5 - 32.1 pg [facility] Mean Cell Hemoglobin Concentration 33.2 32.0 - 35.7 g/dL [facility] Platelet 260 145 - 357 x10(3)/mc L [facility] RDW Standard Deviation 45.8(H) 36.0 - 45.0 fL [facility] RDW coefficient of variation 13.9(H) 11.4 - 13.8 % [facility] Mean Platelet Volume 9.6 7.6 - 12.9 fL [facility] NRBC% auto 0.0 % [facility] NRBC Absolute 0.000 0.000 - 0.000 x10(3)/mc L [facility] Blood 07/05/2023 3:36 AM EDT 07/05/2023 4:10 AM EDT Narrative Resulting Agency Comment Spec In Lab Delgado Denis MD HEMATOLOGY ORDERABLE S Performing Organization Address City/[facility]/ZIP Co de Phone Number [facility] [place] [address] * (ABNORMAL) Phosphorus (07/05/2023 3:36 AM EDT) Phosphorus 1.7(L) 2.5 - 4.5 mg/dL [facility] Blood 07/05/2023 3:36 AM EDT 07/05/2023 4:10 AM EDT Narrative Resulting Agency Comment Spec In Lab Reuben Thibodeaux MD CHEMISTRY ORDERABLES Performing Organization Address City/[facility]/ZIP Co de Phone Number [facility] [place] [address] * Magnesium (07/05/2023 3:36 AM EDT) Magnesium 0.83 0.69 - 1.07 mmol/L [facility] Blood 07/05/2023 3:36 AM EDT 07/05/2023 4:10 AM EDT Narrative Resulting Agency Comment Spec In Lab Reuben Thibodeaux MD CHEMISTRY ORDERABLES [facility] [place] [address] * (ABNORMAL) Basic Metabolic Panel (non-fasting) (07/05/2023 3:36 AM EDT) Glucose 110 65 - 199 mg/dL [facility] Comment:Diabetes: >=200 mg/d L plus symptoms Blood Urea Nitrogen 10 10 - 20 mg/dL [facility] Creatinine 1.01 0.80 - 1.50 mg/dL [facility] Sodium 138 135 - 145 mmol/L [facility] Potassium 3.7 3.5 - 5.0 mmol/L [facility] Comment: Please note: ??Patients with WBC >100,000 may have falsely elevated Potassium levels. ??For accurate Potassium quantification in these patients send serum separator tube (gold top) for subsequent determinations. ??Contact the Clinical Chemistry Laboratory if there are any questions. Chloride 105 98 - 107 mmol/L [facility] Carbon Dioxide 22 22 - 31 mmol/L [facility] Anion Gap 11 5 - 15 mmol/L [facility] Calcium 8.4(L) 8.5 - 10.5 mg/dL [facility] Est Glomerular Filtration Rate 91 >=60 mL/min/1. 73 m?? [facility] Comment: This patient's estimated [...] and symptoms in addition to eGFR. Blood 07/05/2023 3:36 AM EDT 07/05/2023 4:10 AM EDT Narrative Resulting Agency Comment Spec In Lab Reuben Thibodeaux MD CHEMISTRY ORDERABLES [facility] [place] [address] * (ABNORMAL) Differential, Automated (07/04/2023 2:01 AM EDT) Neutrophil % 86.8 % [facility] Neutrophil Absolute 16.11(H) 1.70 - 6.10 x10(3)/ L [facility] Lymph % 6.6 % [facility] Lymphocytes Abs 1.2 0.9 - 3.2 x10(3)/[facility] Monocyte % 5.7 % [facility] Monocyte Abs 1.1(H) 0.3 - 0.9 x10(3)/[facility] Eos % 0.3 % [facility] Eosinophils Abs 0.1 0.0 - 0.4 x10(3)/[facility] Basophil % 0.3 % [facility] Baso Absolute 0.1 0.0 - 0.1 x10(3)/[facility] LABORATORY Immature Gran % 0.30 % [facility] Comment: Immature granulocytes(IG's)percentage and absolute count will include metamyelocytes, myelocytes, and promyelocytes. Blood smears from CBCs yielding IG's will be scanned manually for concordance. If this scan disagrees with the automated IG or if promyelocytes are noted, a manual differential will be performed. Immature Gran Absolute 0.06(H) 0.00 - 0.04 x10(3)/ L [facility] Blood 07/04/2023 2:01 AM EDT 07/04/2023 2:32 AM EDT Narrative Resulting Agency Comment Spec In Lab Delgado Denis MD HEMATOLOGY ORDERABLE S [facility] [place] [address] * (ABNORMAL) Hemogram (07/04/2023 2:01 AM EDT) White Blood Cell 18.6(H) 4.0 - 9.5 x10(3)/mc L [facility] Red Blood Cell 5.48 4.58 - 5.54 x10(6)/mc L [facility] Hemoglobin 16.1 13.7 - 16.5 g/dL [facility] Hematocrit 47.4 40.5 - 48.5 % [facility] Mean Cell Volume 86.5 82.9 - 93.1 fL [facility] Mean Cell Hemoglobin 29.4 27.5 - 32.1 pg [facility] Mean Cell Hemoglobin Concentration 34.0 32.0 - 35.7 g/dL [facility] Platelet 333 145 - 357 x10(3)/ L [facility] RDW Standard Deviation 42.3 36.0 - 45.0 [facility] LABORATORY RDW coefficient of variation 13.4 11.4 - 13.8 % [facility] Mean Platelet Volume 9.3 7.6 - 12.9 fL [facility] NRBC% auto 0.0 % [facility] NRBC Absolute 0.000 0.000 - 0.000 x10(3)/ L [facility] Blood 07/04/2023 2:01 AM EDT 07/04/2023 2:32 AM EDT Narrative Resulting Agency Comment Spec In Lab Delgado Denis MD HEMATOLOGY ORDERABLE S [facility] [place] [address] * Phosphorus (07/04/2023 2:01 AM EDT) Phosphorus 3.5 2.5 - 4.5 mg/dL [facility] Blood 07/04/2023 2:01 AM EDT 07/04/2023 2:32 AM EDT Narrative Resulting Agency Comment Spec In Lab Reuben Thibodeaux MD CHEMISTRY ORDERABLES [facility] [place] [address] * Magnesium (07/04/2023 2:01 AM EDT) Magnesium 0.78 0.69 - 1.07 mmol/L [facility] Blood 07/04/2023 2:01 AM EDT 07/04/2023 2:32 AM EDT Narrative Resulting Agency Comment Spec In Lab Reuben Thibodeaux MD CHEMISTRY ORDERABLES Performing Organization Address [facility] Co de Phone Number [facility] [place] [address] * (ABNORMAL) Basic Metabolic Panel (non-fasting) (07/04/2023 2:01 AM EDT) Glucose 146 65 - 199 mg/dL [facility] Comment:Diabetes: >=200 mg/d L plus symptoms Blood Urea Nitrogen 16 10 - 20 mg/dL [facility] Creatinine 1.04 0.80 - 1.50 mg/dL [facility] Sodium 135 135 - 145 mmol/L [facility] Potassium 4.0 3.5 - 5.0 mmol/L [facility] Comment: Please note: ??Patients with WBC >100,000 may have falsely elevated Potassium levels. ??For accurate Potassium quantification in these patients send serum separator tube (gold top) for subsequent determinations. ??Contact the Clinical Chemistry Laboratory if there are any questions. Chloride 106 98 - 107 mmol/L [facility] Carbon Dioxide 20(L) 22 - 31 mmol/L [facility] Anion Gap 9 5 - 15 mmol/L [facility] Calcium 8.6 8.5 - 10.5 mg/dL [facility] Est Glomerular Filtration Rate 87 >=60 mL/min/1. 73 m?? [facility] Comment: This patient's estimated [...] and symptoms in addition to eGFR. Blood 07/04/2023 2:01 AM EDT 07/04/2023 2:32 AM EDT Narrative Resulting Agency Comment Spec In Lab Reuben Thibodeaux MD CHEMISTRY ORDERABLES [facility] [place] [address] * XR Abdomen 1 view (Generic) (07/03/2023 9:00 PM EDT) [employer] WORKSTATION ID [id number] RAD Anatomical Region Laterality Modality Abdomen N/A Digital Radiogra phy Impressions 07/04/2023 12:40 AM EDT Enteric tube tip and side-port project over the stomach. Thank you for letting us participate in the care of this patient. ??If you are a health care provider and have any questions regarding this report, please contact the number below. ??For patients who have questions please contact the health health care sanitary technician that requested your imaging first. ? Narrative 07/04/2023 12:40 AM EDT EXAMINATION: XR ABDOMEN 1 VIEW (GENERIC) CLINICAL HISTORY: s/p NGT placement TECHNIQUE: Portable abdominal radiograph, single image COMPARISON: CT abdomen pelvis 07/02/2023 FINDINGS: Enteric tube projects below the diaphragm with tip and side port projecting over the stomach. Surgical clips project over the gallbladder fossa. EKG leads are present. Shunt catheter tubing projects over the right hemithorax. Linear calcification projecting over the right hemidiaphragm localizing to the subcutaneous fat on prior CT. Air-filled dilated loops of bowel within the lower abdomen measuring up to 6.2 cm in caliber. Skin isabella project over the lower abdomen. Procedure Note Chapin Peacock MD - 07/04/2023 EXAMINATION: XR ABDOMEN 1 VIEW (GENERIC) CLINICAL HISTORY: s/p NGT placement TECHNIQUE: Portable abdominal radiograph, single image COMPARISON: CT abdomen pelvis 07/02/2023 FINDINGS: Enteric tube projects below the diaphragm with tip and side portprojecting over the stomach. Surgical clips project over the gallbladder fossa. EKG leads are present. Shunt catheter tubing projects over the right hemithorax. Linear calcification projecting over the right hemidiaphragm localizing tothe subcutaneous fat on prior CT. Air-filled dilated loops of bowel within thelower abdomen measuring up to 6.2 cm in caliber. Skin isabella project over thelower abdomen. IMPRESSION Enteric tube tip and side-port project over the stomach. Thank you for letting us participate in the care of this patient. If youare a health care provider and have any questions regarding this report,please contact the number below. For patients who have questions please contactthe health health care sanitary technician that requested your imaging first. Reuben Thibodeaux MD IMG DX ORDERABLES * (ABNORMAL) Differential, Automated (07/03/2023 8:44 PM EDT) [facility] Signature Neutrophil % 87.5 % [facility] Neutrophil Absolute 15.46(H) 1.70 - 6.10 x10(3)/[facility] Lymph % 5.8 % [facility] Lymphocytes Abs 1.0 0.9 - 3.2 x10(3)/[facility] Monocyte % 6.1 % [facility] Monocyte Abs 1.1(H) 0.3 - 0.9 x10(3)/[facility] Eos % 0.1 % [facility] Eosinophils Abs 0.0 0.0 - 0.4 x10(3)/[facility] Basophil % 0.2 % [facility] Baso Absolute 0.0 0.0 - 0.1 x10(3)/[facility] Immature Gran % 0.30 % [facility] Comment: Immature granulocytes(IG's)percentage and absolute count will include metamyelocytes, myelocytes, and promyelocytes. Blood smears from CBCs yielding IG's will be scanned manually for concordance. If this scan disagrees with the automated IG or if promyelocytes are noted, a manual differential will be performed. Immature Gran Absolute 0.06(H) 0.00 - 0.04 x10(3)/[facility] Blood 07/03/2023 8:44 PM EDT 07/03/2023 8:51 PM EDT Narrative Resulting Agency Comment Spec In Lab Delgado Denis MD HEMATOLOGY ORDERABLE S [facility] [place] [address] * (ABNORMAL) Hemogram (07/03/2023 8:44 PM EDT) White Blood Cell 17.7(H) 4.0 - 9.5 x10(3)/[facility] Red Blood Cell 5.57(H) 4.58 - 5.54 x10(6)/ L [facility] Hemoglobin 16.6(H) 13.7 - 16.5 g/dL [facility] Hematocrit 49.2(H) 40.5 - 48.5 % [facility] Mean Cell Volume 88.3 82.9 - 93.1 fL [facility] Mean Cell Hemoglobin 29.8 27.5 - 32.1 pg [facility] Mean Cell Hemoglobin Concentration 33.7 32.0 - 35.7 g/dL [facility] Platelet 358(H) 145 - 357 x10(3)/mc L [facility] RDW Standard Deviation 42.9 36.0 - 45.0 fL [facility] RDW coefficient of variation 13.2 11.4 - 13.8 % [facility] Mean Platelet Volume 9.0 7.6 - 12.9 fL [facility] NRBC% auto 0.0 % [facility] NRBC Absolute 0.000 0.000 - 0.000 x10(3)/mc L [facility] Blood 07/03/2023 8:44 PM EDT 07/03/2023 8:51 PM EDT Narrative Resulting Agency Comment Spec In Lab Delgado Denis MD HEMATOLOGY ORDERABLE S [facility] [place] [address] * (ABNORMAL) Basic Metabolic Panel (non-fasting) (07/03/2023 8:44 PM EDT) Glucose 181 65 - 199 mg/dL [facility] Comment:Diabetes: >=200 mg/d L plus symptoms Blood Urea Nitrogen 17 10 - 20 mg/dL [facility] Creatinine 1.05 0.80 - 1.50 mg/dL [facility] Sodium 135 135 - 145 mmol/L [facility] Potassium 3.7 3.5 - 5.0 mmol/L [facility] Comment: Please note: ??Patients with WBC >100,000 may have falsely elevated Potassium levels. ??For accurate Potassium quantification in these patients send serum separator tube (gold top) for subsequent determinations. ??Contact the Clinical Chemistry Laboratory if there are any questions. Chloride 104 98 - 107 mmol/L [facility] Carbon Dioxide 20(L) 22 - 31 mmol/L [facility] Anion Gap 11 5 - 15 mmol/L [facility] Calcium 8.6 8.5 - 10.5 mg/dL [facility] Est Glomerular Filtration Rate 86 >=60 mL/min/1. 73 m?? [facility] Comment: This patient's estimated [...] and symptoms in addition to eGFR. Blood 07/03/2023 8:44 PM EDT 07/03/2023 8:51 PM EDT Narrative Resulting Agency Comment Spec In Lab Reuben Thibodeaux MD CHEMISTRY ORDERABLES Performing Organization Address City/State/[place] Co de Phone Number [facility] [place] [address] * Surgical Pathology Report (07/03/2023 7:23 PM EDT) Final Diagnosis [id number] ? Location: L3WD; 0311; B The signing pathologist has (i) examined the relevant preparation(s) for the specimen(s) and (ii) rendered or confirmed the diagnosis(es). . 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 - Margins appear viable. - Vegetable matter. Electronically signed by: ?Rishi LEE PhD, Mery Verified: ??07/13/2023 14:03 ??Pathologist Performed at: ??-[facility] Dept. of Pathology, [place] [address] [employer] Manager: Jayjay Covarrubias MD, FCAP, ??CLIA Certificate: [id number] SPECIMEN(S) SUBMITTED A - jejunum, excision (1) CLINICAL INFORMATION SBO SPECIMEN PROCESSING A - Labeled/Fixative: Jejunum, fresh. Resection Specimen: Intact, small bowel resection. Length/Diameter: 18.5 x 3.5 cm. External Architecture: Preserved. Serosa: [id number], glistening. Mucosa: Folded, no lesions identified. Wall: 0.4 cm thick. Sections/Processi ng: Retort [employer] Bone sections in 4 cassettes as follows: ?A1: ??Undesignated margin #1, artist's representative ?A2: ??Undesignated margin #2, artist's representative ?A3: ??[employer]ort [employer] Bone of the mucosa ?A4: ??[employer]ort [employer] Bone of foreign body received in the specimen container (consistent ? with undigested broccoli, and also described in the op note) ??AOO 07/13/2023 2:03 PM EDT [facility] COLON STRUCTURE / Unknown 07/03/2023 7:23 PM EDT 07/03/2023 7:23 PM EDT Arely Murray MD PATHOLOGY/CYTOLOGY O RDERAKIMBER [facility] [place] [address] * Specimen to Pathology (07/03/2023 7:23 PM EDT) AP Specimen 07/03/2023 7:23 PM EDT 07/03/2023 7:23 PM EDT Narrative [facility] - 07/03/2023 7:23 PM EDT Specimen requisition ordered. ??Separate Pathology report to follow Reuben Thibodeaux MD PATHOLOGY/CYTOLOGY O RDERABLES Performing Organization Address City/[facility]/ZIP Co de Phone Number [facility] [place] [address] * ABORH Recheck Status (07/03/2023 2:46 AM EDT) ABORH Type Recheck Completed [facility] Blood 07/03/2023 2:46 AM EDT 07/03/2023 3:08 AM EDT Narrative Resulting Agency Comment Spec In Lab John Clements MD BLOOD BANK LAB O RDERABLES Performing Organization Address [facility]/[place] Co de Phone Number [facility] [place] [address] * (ABNORMAL) Differential, Automated (07/03/2023 2:46 AM EDT) Pathologist [facility] Neutrophil % 61.9 % [facility] Neutrophil Absolute 7.51(H) 1.70 - 6.10 x10(3)/mc L [facility] Lymph % 27.3 % [facility] Lymphocytes Abs 3.3(H) 0.9 - 3.2 x10(3)/mc L [facility] Monocyte % 5.8 % [facility] Monocyte Abs 0.7 0.3 - 0.9 x10(3)/mc L [facility] Eos % 4.0 % [facility] Eosinophils Abs 0.5(H) 0.0 - 0.4 x10(3)/mc L [facility] Basophil % 0.7 % [facility] Baso Absolute 0.1 0.0 - 0.1 x10(3)/mc L [facility] Immature Gran % 0.30 % [facility] Comment: Immature granulocytes(IG's)percentage and absolute count will include metamyelocytes, myelocytes, and promyelocytes. Blood smears from CBCs yielding IG's will be scanned manually for concordance. If this scan disagrees with the automated IG or if promyelocytes are noted, a manual differential will be performed. Immature Gran Absolute 0.04 0.00 - 0.04 x10(3)/mc L [facility] Blood 07/03/2023 2:46 AM EDT 07/03/2023 3:03 AM EDT Narrative Resulting Agency Comment Spec In Lab John Clements MD HEMATOLOGY ORDER BELKIS [facility] [place] [address] * (ABNORMAL) Hemogram (07/03/2023 2:46 AM EDT) White Blood Cell 12.1(H) 4.0 - 9.5 x10(3)/mc L [facility] Red Blood Cell 5.27 4.58 - 5.54 x10(6)/mc L [facility] Hemoglobin 15.9 13.7 - 16.5 g/dL [facility] Hematocrit 46.3 40.5 - 48.5 % [facility] Mean Cell Volume 87.9 82.9 - 93.1 fL [facility] Mean Cell Hemoglobin 30.2 27.5 - 32.1 pg [facility] Mean Cell Hemoglobin Concentration 34.3 32.0 - 35.7 g/dL [facility] Platelet 245 145 - 357 x10(3)/mc L [facility] RDW Standard Deviation 42.7 36.0 - 45.0 fL [facility] RDW coefficient of variation 13.2 11.4 - 13.8 % [facility] Mean Platelet Volume 9.2 7.6 - 12.9 fL [facility] NRBC% auto 0.0 % [facility] NRBC Absolute 0.000 0.000 - 0.000 x10(3)/mc L [facility] Blood 07/03/2023 2:46 AM EDT 07/03/2023 3:03 AM EDT Narrative Resulting Agency Comment Spec In Lab John Clements MD HEMATOLOGY ORDER BELKIS [facility] [place] [address] * Phosphorus (07/03/2023 2:46 AM EDT) Phosphorus 3.0 2.5 - 4.5 mg/dL [facility] Blood 07/03/2023 2:46 AM EDT 07/03/2023 3:03 AM EDT Narrative Resulting Agency Comment Spec In Lab Reuben Thibodeaux MD CHEMISTRY ORDERABLES Performing Organization Address City/[facility]/ZIP Co de Phone Number [facility] [place] [address] * Magnesium (07/03/2023 2:46 AM EDT) Magnesium 0.87 0.69 - 1.07 mmol/L [facility] Blood 07/03/2023 2:46 AM EDT 07/03/2023 3:03 AM EDT Narrative Resulting Agency Comment Spec In Lab Reuben Thibodeaux MD CHEMISTRY ORDERABLES Performing Organization Address City/[facility]/ZIP Co de Phone Number [facility] [place] [address] * (ABNORMAL) Basic Metabolic Panel (non-fasting) (07/03/2023 2:46 AM EDT) Glucose 102 65 - 199 mg/dL [facility] Comment:Diabetes: >=200 mg/d L plus symptoms Blood Urea Nitrogen 15 10 - 20 mg/dL [facility] Creatinine 1.10 0.80 - 1.50 mg/dL [facility] Sodium 138 135 - 145 mmol/L [facility] Potassium 3.7 3.5 - 5.0 mmol/L [facility] Comment: Please note: ??Patients with WBC >100,000 may have falsely elevated Potassium levels. ??For accurate Potassium quantification in these patients send serum separator tube (gold top) for subsequent determinations. ??Contact the Clinical Chemistry Laboratory if there are any questions. Chloride 105 98 - 107 mmol/L [facility] Carbon Dioxide 18(L) 22 - 31 mmol/L [facility] Anion Gap 15 5 - 15 mmol/L [facility] Calcium 9.0 8.5 - 10.5 mg/dL [facility] Est Glomerular Filtration Rate 82 >=60 mL/min/1. 73 m?? [facility] Comment: This patient's estimated [...] and symptoms in addition to eGFR. Blood 07/03/2023 2:46 AM EDT 07/03/2023 3:03 AM EDT Narrative Resulting Agency Comment Spec In Lab Reuben Thibodeaux MD CHEMISTRY ORDERABLES [facility] [place] [address] * Type and screen (MC/CGP/DULCE MARIA) (07/03/2023 2:46 AM EDT) ABORH Type A POSITIVE [facility] Patient BB History Found [facility] Expires at [id number] on: 07-06-2023 [facility] Ab Screen Interp Negative [facility] Blood 07/03/2023 2:46 AM EDT 07/03/2023 2:46 AM EDT Narrative [facility] - 07/03/2023 2:46 AM EDT This Type and Screen result is only valid at the [facility] Resulting Agency Comment Spec In Lab Aria Nuñez MD BLOOD BANK LAB ORDER BELKIS [facility] [place] [address] * (ABNORMAL) Urinalysis with reflex Culture (07/02/2023 7:53 PM EDT) Glucose, Urine Dipstick Negative Negative mg/dL [facility] Protein, Urine Dipstick Negative Negative mg/dL [facility] Bilirubin, Urine Dipstick Negative Negative mg/dL [facility] Comment: Clinical correlation required for positive Urine Bilirubin results as false positive may occur with some drugs and drug related products. If a false positive is suspected a serum total bilirubin should be considered if clinically indicated. Urobilinogen, Urine Dipstick Normal Normal mg/dL [facility] pH, Urn (dipstick) 5.5 5.0 - 8.0 [facility] Blood, Urine Dipstick Negative Negative mg/dL [facility] Ketone, Urine Dipstick Trace(A) Negative mg/dL [facility] Nitrite, Urine Dipstick Negative Negative [facility] Leukocytes, Urine Dipstick Negative Negative [facility] Appearance, Urine Dipstick Clear Clear [facility] Specific [place] Urine Automated >=1.030(A) 1.005 - 1.030 [facility] Color, Urine Dipstick Yellow Yellow [facility] Reflex to Culture No [facility] Clean Catch Urine 07/02/2023 7:53 PM EDT 07/02/2023 8:38 PM EDT Narrative Resulting Agency Comment Spec In Lab Tracey Mcneal DO URINE ORDER BELKIS [facility] [place] [address] * Lactate, whole blood, send to lab ([facility]) (07/02/2023 4:23 PM EDT) Lactate WB 1.0 0.5 - 2.2 mmol/L [facility] Blood Venous Draw / Unknown 07/02/2023 4:23 PM EDT 07/02/2023 4:30 PM EDT Narrative Resulting Agency Comment Spec In Lab Aria Nuñez MD CHEMISTRY ORDERABLES Performing Organization Address City/[facility]/ZIP Co de Phone Number [facility] [place] [address] * CT Abdomen & Pelvis w Contrast (07/02/2023 3:49 PM EDT) WORKSTATION ID [id number] [facility] Anatomical Region Laterality Modality Abdomen, Pelvis Computed Tomogra phy Impressions 07/02/2023 4:15 PM EDT 1. ??Increased dilation of a segment of mid small bowel in the left abdomen with proximal and distal transition points suspicious for a closed-loop obstruction. This could be related to anterior abdominal wall adhesions or possible internal hernia. 2. ??No intra-abdominal abscess or free air. 3. ??Intervertebral placement of a right pleural shunt catheter with small right pleural effusion and right basilar atelectasis. These findings were communicated to Dr. Nuñez by Dr. Graham at 4:15 PM on 07/02/2023 via secure chat. Thank you for letting us participate in the care of this patient. ??If you are a health care provider and have any questions regarding this report, please contact the number below. ??For patients who have questions please contact the health health care sanitary technician that requested your imaging first. ? Narrative 07/02/2023 4:15 PM EDT EXAMINATION: CT ABDOMEN AND PELVIS W CONTRAST CLINICAL HISTORY: recurrent epigastric abdominal pain and emesis, Pt with PMH of congenital hydrocephalus with recent shunt revision on 06/28 (ventriculopleural shunt placed due to complication with ventriculoperitoneal shunt), intraabdominal abscesses managed now on abx, and partial SBO on 06/27 TECHNIQUE: Helical CT of the abdomen and pelvis following the intravenous administration of contrast. Administered 113.0 ml of OMNIPAQUE 350.00 mg/ml. Oral contrast was not administered. COMPARISON: CT from 06/28/2023 FINDINGS: Lower chest: Interval placement of a shunt catheter in the right posterior pleural space with small right pleural effusion and mild right basilar atelectasis. Liver: Normal size and overall attenuation. Stable small area of hypodensity in segment 4A most likely represents focal fatty infiltration. Bile ducts: Nondilated. Gallbladder: Surgically absent. Pancreas: Normal attenuation without ductal dilatation. Spleen: Normal. Adrenals: Normal. Kidneys: Normal. Urinary Bladder: Normal. Vasculature: No abdominal aortic aneurysm. Lymph Nodes: No enlarged lymph nodes. Bowel: Increased dilation of a segment of fluid-filled small bowel with probable proximal and distal transition points in the anterior left abdomen along the abdominal wall in the vicinity of an anterior abdominal wall metallic clip (series 4 image [id number] and series 4 image [id number]). The more distal small bowel and colon are relatively decompressed. No pneumatosis or portal venous gas. Peritoneum and retroperitoneum: No free fluid or loculated fluid collection. No pneumoperitoneum. Abdominal wall: No hernia. Small fat-containing inguinal hernias. Reproductive organs: Normal. Osseous structures: No suspicious lesions. Procedure Note Cl Graham MD - 07/02/2023 EXAMINATION: CT ABDOMEN AND PELVIS W CONTRAST CLINICAL HISTORY: recurrent epigastric abdominal pain and emesis, Pt withPMH of congenital hydrocephalus with recent shunt revision on 06/28(ventriculopleural shunt placed due to complication with ventriculoperitoneal shunt), intraabdominal abscesses managed now on abx, and partial SBO on 06/27 TECHNIQUE: Helical CT of the abdomen and pelvis following theintravenous administration of contrast. Administered 113.0 ml of OMNIPAQUE 350.00mg/ml. Oral contrast was not administered. COMPARISON: CT from 06/28/2023 FINDINGS: Lower chest: Interval placement of a shunt catheter in the rightposterior pleural space with small right pleural effusion and mild right basilar atelectasis. Liver: Normal size and overall attenuation. Stable small area ofhypodensity in segment 4A most likely represents focal fatty infiltration. Bile ducts: Nondilated. Gallbladder: Surgically absent. Pancreas: Normal attenuation without ductal dilatation. Spleen: Normal. Adrenals: Normal. Kidneys: Normal. Urinary Bladder: Normal. Vasculature: No abdominal aortic aneurysm. Lymph Nodes: No enlarged lymph nodes. Bowel: Increased dilation of a segment of fluid-filled small bowel withprobable proximal and distal transition points in the anterior left abdomen alongthe abdominal wall in the vicinity of an anterior abdominal wall metallicclip (series 4 image [id number] and series 4 image [id number]). The more distal smallbowel and colon are relatively decompressed. No pneumatosis or portal venous gas. Peritoneum and retroperitoneum: No free fluid or loculated fluidcollection. No pneumoperitoneum. Abdominal wall: No hernia. Small fat-containing inguinal hernias. Reproductive organs: Normal. Osseous structures: No suspicious lesions. IMPRESSION 1. Increased dilation of a segment of mid small bowel in the left abdomenwith proximal and distal transition points suspicious for a closed-loopobstruction. This could be related to anterior abdominal wall adhesions or possibleinternal hernia. 2. No intra-abdominal abscess or free air. 3. Intervertebral placement of a right pleural shunt catheter with smallright pleural effusion and right basilar atelectasis. These findings were communicated to Dr. Nuñez by Dr. Graham at 4:15 PMon 07/02/2023 via secure chat. Thank you for letting us participate in the care of this patient. If youare a health care provider and have any questions regarding this report,please contact the number below. For patients who have questions please contactthe health health care sanitary technician that requested your imaging first. Aria Nuñez MD IMG CT ORDERABLES * CT Head wo Contrast (Generic) (07/02/2023 3:49 PM EDT) [employer] WORKSTATION ID [id number] RAD Anatomical Region Laterality Modality Head Computed Tomogra phy Impressions 07/02/2023 3:57 PM EDT Stable brain CT with attention to ventricular morphology. No acute findings. Thank you for letting us participate in the care of this patient. ??If you are a health care provider and have any questions regarding this report, please contact the number below. ??For patients who have questions please contact the health health care sanitary technician that requested your imaging first. ? 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 COMPARISON: Head CT 06/16/2023 FINDINGS: There is no acute intracranial hemorrhage or mass effect. Right frontal approach ventricular shunt is in stable position. Collapsed ventricular morphology is stable, with mild asymmetric distention of the temporal horn of the right lateral ventricle. There is no interval attenuation abnormality of the brain parenchyma. No interval osseous findings. Mastoids, middle ear spaces and imaged paranasal sinuses are normally aerated. 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 COMPARISON: Head CT 06/16/2023 FINDINGS: There is no acute intracranial hemorrhage or mass effect. Right frontalapproach ventricular shunt is in stable position. Collapsed ventricular morphology is stable, with mild asymmetricdistention of the temporal horn of the right lateral ventricle. There is no interval attenuation abnormality of the brain parenchyma. No interval osseous findings. Mastoids, middle ear spaces and imagedparanasal sinuses are normally aerated. IMPRESSION Stable brain CT with attention to ventricular morphology. No acutefindings. Thank you for letting us participate in the care of this patient. If youare a health care provider and have any questions regarding this report,please contact the number below. For patients who have questions please contactthe health health care sanitary technician that requested your imaging first. Aria Nuñez MD IM CT ORDERABLES * XR Shunt Series (07/02/2023 3:43 PM EDT) WORKSTATION ID [id number] RAD Anatomical Region Laterality Modality N/A Digital Radiogra phy Impressions 07/02/2023 3:54 PM EDT Proximal shunt catheter tubing is well delineated and intact to the level of mid chest, but its distal and abdominal segments are not identified. This is based on patient body habitus and portable radiograph exposure. Of note, a CT abdomen pelvis has been ordered. Thank you for letting us participate in the care of this patient. ??If you are a health care provider and have any questions regarding this report, please contact the number below. ??For patients who have questions please contact the health health care sanitary technician that requested your imaging first. ? Electronically signed by: Emerita Bernstein MD, [facility] ([phone]), at 07/02/2023 3:54 PM Narrative 07/02/2023 3:54 PM EDT EXAMINATION: XR SHUNT SERIES CLINICAL HISTORY: evaluate shunt TECHNIQUE: AP and lateral views of the head, chest and abdomen (7 images) COMPARISON: Radiographs June 15 and June 29, 2023 FINDINGS: Intracranial shunt tip is at midline via a high right frontal approach. The programmable shunt valve is not positioned to evaluate setting. Tubing along the right neck and anterior chest is intact with slight kink where it enters the upper right chest wall. Incomplete shunt segments are seen at the right neck and chest. No intra-abdominal shunt segment is seen. Several surgical clips in the abdomen. No fracture. Lungs are clear. A single left upper quadrant loop of small bowel measures 3.7 cm, otherwise nonobstructive bowel gas pattern. Procedure Note Emerita Bernstein MD - 07/02/2023 EXAMINATION: XR SHUNT SERIES CLINICAL HISTORY: evaluate shunt TECHNIQUE: AP and lateral views of the head, chest and abdomen (7 images) COMPARISON: Radiographs June 15 and June 29, 2023 FINDINGS: Intracranial shunt tip is at midline via a high right frontal approach.The programmable shunt valve is not positioned to evaluate setting. Tubingalong the right neck and anterior chest is intact with slight kink where it entersthe upper right chest wall. Incomplete shunt segments are seen at the right neck and chest. No intra-abdominal shunt segment is seen. Several surgical clips in theabdomen. No fracture. Lungs are clear. A single left upper quadrant loop of smallbowel measures 3.7 cm, otherwise nonobstructive bowel gas pattern. IMPRESSION Proximal shunt catheter tubing is well delineated and intact to the levelof mid chest, but its distal and abdominal segments are not identified. This isbased on patient body habitus and portable radiograph exposure. Of note, a CTabdomen pelvis has been ordered. Thank you for letting us participate in the care of this patient. If youare a health care provider and have any questions regarding this report,please contact the number below. For patients who have questions please contactthe health health care sanitary technician that requested your imaging first. Aria Nuñez MD IMG DX ORDERABLES * Gold Tube HOLD (07/02/2023 3:02 PM EDT) Gold Hold Sample in lab. [facility] Blood Venous Draw / Unknown 07/02/2023 3:02 PM EDT 07/02/2023 3:07 PM EDT Jeremy DURHAM CHEMISTRY ORDERABLES [facility] [place] [address] * Blue Tube HOLD (07/02/2023 3:02 PM EDT) Blue Hold Sample in lab. [facility] Blood Venous Draw / Unknown 07/02/2023 3:02 PM EDT 07/02/2023 3:08 PM EDT Jeremy DURHAM HEMATOLOGY ORDERABLE S [facility] [place] [address] * (ABNORMAL) Differential, Automated (07/02/2023 3:02 PM EDT) Neutrophil % 77.3 % [facility] Neutrophil Absolute 12.20(H) 1.70 - 6.10 x10(3)/ L [facility] Lymph % 15.8 % [facility] Lymphocytes Abs 2.5 0.9 - 3.2 x10(3)/[facility] Monocyte % 4.1 % [facility] Monocyte Abs 0.6 0.3 - 0.9 x10(3)/[facility] Eos % 1.9 % [facility] Eosinophils Abs 0.3 0.0 - 0.4 x10(3)/[facility] Basophil % 0.5 % [facility] Baso Absolute 0.1 0.0 - 0.1 x10(3)/[facility] Immature Gran % 0.40 % [facility] Comment: Immature granulocytes(IG's)percentage and absolute count will include metamyelocytes, myelocytes, and promyelocytes. Blood smears from CBCs yielding IG's will be scanned manually for concordance. If this scan disagrees with the automated IG or if promyelocytes are noted, a manual differential will be performed. Immature Gran Absolute 0.06(H) 0.00 - 0.04 x10(3)/ L [facility] Blood 07/02/2023 3:02 PM EDT 07/02/2023 3:07 PM EDT Narrative Resulting Agency Comment Spec In Lab Jeremy DURHAM HEMATOLOGY ORDERABLE S [facility] [place] [address] * (ABNORMAL) Hemogram (07/02/2023 3:02 PM EDT) White Blood Cell 15.8(H) 4.0 - 9.5 x10(3)/mc L [facility] Red Blood Cell 5.70(H) 4.58 - 5.54 x10(6)/[facility] Hemoglobin 17.1(H) 13.7 - 16.5 g/dL [facility] Hematocrit 49.7(H) 40.5 - 48.5 % [facility] Mean Cell Volume 87.2 82.9 - 93.1 fL [facility] Mean Cell Hemoglobin 30.0 27.5 - 32.1 pg [facility] Mean Cell Hemoglobin Concentration 34.4 32.0 - 35.7 g/dL [facility] Platelet 253 145 - 357 x10(3)/[facility] RDW Standard Deviation 42.6 36.0 - 45.0 [facility] RDW coefficient of variation 13.2 11.4 - 13.8 % [facility] Mean Platelet Volume 9.0 7.6 - 12.9 [facility] NRBC% auto 0.0 % [facility] NRBC Absolute 0.000 0.000 - 0.000 x10(3)/[facility] Blood 07/02/2023 3:02 PM EDT 07/02/2023 3:07 PM EDT Narrative Resulting Agency Comment Spec In Lab Jeremy DURHAM HEMATOLOGY ORDERABLE S [facility] [place] [address] * Magnesium (07/02/2023 3:02 PM EDT) Magnesium 0.87 0.69 - 1.07 mmol/L [facility] Blood 07/02/2023 3:02 PM EDT 07/02/2023 3:07 PM EDT Narrative Resulting Agency Comment Spec In Lab Tracey Mcneal DO CHEMISTRY O RDERABLES Performing Organization Address City/[facility]/ZIP Co de Phone Number [facility] [place] [address] * Lipase (07/02/2023 3:02 PM EDT) Lipase 35 0 - 60 unit/L [facility] Blood 07/02/2023 3:02 PM EDT 07/02/2023 3:07 PM EDT Narrative Resulting Agency Comment Spec In Lab Tracey Irma Mcneal DO CHEMISTRY O RDERABLES Performing Organization Address [facility]/[place] Co de Phone Number [facility] [place] [address] * (ABNORMAL) Comprehensive metabolic panel (non-fasting) (07/02/2023 3:02 PM EDT) Pathologist [facility] Glucose 101 65 - 199 mg/dL [facility] Comment:Diabetes: >=200 mg/d L plus symptoms Blood Urea Nitrogen 16 10 - 20 mg/dL [facility] Creatinine 1.07 0.80 - 1.50 mg/dL [facility] Sodium 134(L) 135 - 145 mmol/L [facility] Potassium 4.0 3.5 - 5.0 mmol/L [facility] Comment: Please note: ??Patients with WBC >100,000 may have falsely elevated Potassium levels. ??For accurate Potassium quantification in these patients send serum separator tube (gold top) for subsequent determinations. ??Contact the Clinical Chemistry Laboratory if there are any questions. Chloride 101 98 - 107 mmol/L [facility] Carbon Dioxide 19(L) 22 - 31 mmol/L [facility] Anion Gap 14 5 - 15 mmol/L [facility] Calcium 9.6 8.5 - 10.5 mg/dL [facility] Protein, Total 7.6 6.1 - 8.0 g/dL [facility] Albumin 4.4 3.2 - 5.2 g/dL [facility] Aspartate Aminotransferase 13 0 - 39 unit/L [facility] Alanine Aminotransferase 14 0 - 55 unit/L [facility] Alkaline Phosphatase 98 40 - 130 unit/L [facility] Bilirubin, Total 0.6 0.2 - 1.3 mg/dL [facility] Est Glomerular Filtration Rate 85 >=60 mL/min/1. 73 m?? [facility] Comment: This patient's estimated [...] and symptoms in addition to eGFR. Blood 07/02/2023 3:02 PM EDT 07/02/2023 3:07 PM EDT Narrative Resulting Agency Comment Spec In Lab Tracey Mcneal DO CHEMISTRY O RDERABLES [facility] [place] [address] documented in this encounter Visit Diagnoses Not on filedocumented in this encounter Admitting Diagnoses Diagnosis Small bowel obstruction Unspecified intestinal obstruction documented in this encounter Administered Medications Inactive Administered Medications - up to 3 most recent administrations Medication Order MAR Action Action Date Dose Rate Site acetaminophen (Tylenol) tablet 975 mg 975 mg, Oral, EVERY 6 HOURS SCHEDULED, First dose on Thu07/06/23 at 1630, Until Discontinued, Maximum dose of acetaminophen is 4,000 mg from all sources in 24 hours. When ordered for pain, acetaminophen should be given even when other ordered pain medications are indicated., Routine Given 07/08/2023 10:50 AM EDT 975 mg Given 07/08/2023 5:32 AM EDT 975 mg Given 07/08/2023 12:03 AM EDT 975 mg ARIPiprazole (Abilify) tablet 10 mg 10 mg, Per NG tube, DAILY, First dose (after last modification) on [facility] 07/04/23 at 0900, Until Discontinued, Routine Given 07/08/2023 8:39 AM EDT 10 mg Given 07/07/2023 8:36 AM EDT 10 mg Given 07/06/2023 8:49 AM EDT 10 mg atorvastatin (Lipitor) tablet 10 mg 10 mg, Per NG tube, DAILY, First dose (after last modification) on [facility] 07/04/23 at 0900, Until Discontinued, Routine Given 07/08/2023 8:39 AM EDT 10 mg Given 07/07/2023 8:36 AM EDT 10 mg Given 07/06/2023 8:49 AM EDT 10 mg heparin (porcine) (5,000 units/1 mL) subcutaneous injection 5,000 Units 5,000 Units, Subcutaneous, EVERY 8 HOURS SCHEDULED, First dose on Sandra 07/02/23 at 1752, Until Discontinued, Routine Given 07/08/2023 5:32 AM EDT 5,000 Unit s Given 07/07/2023 9:15 PM EDT 5,000 Units Given 07/07/2023 1:35 PM EDT 5,000 Units ibuprofen (Advil) tablet 600 mg 600 mg, Oral, EVERY 6 HOURS PRN, Starting on Thu07/08/23 at 0000, Until Thu07/08/23 at 1501, Pain, Administer orally with milk or food to minimize GI irritation. Maximum dose of 3,200 mg from all sources in 24 hours, Routine Given 07/08/2023 12:04 PM EDT 600 mg levothyroxine (Synthroid) tablet 25 mcg 25 mcg, nephrostomy tube, DAILY, First dose (after last modification) on [facility] 07/04/23 at 0600, Until Discontinued, Routine Given 07/08/2023 5:32 AM EDT 25 mcg Given 07/07/2023 6:19 AM EDT 25 mcg Given 07/06/2023 6:27 AM EDT 25 mcg lidocaine (Xylocaine) 1% (10 mg/mL) injection 3 mg 3 mg (0.3 mL), Subcutaneous, ONCE PRN, 1 dose, Starting on Thu07/02/23 at 1748, Until Thu07/08/23 at 1501, for discomfort with PIV insertion, Routine melatonin tablet 3 mg 3 mg, Oral, NIGHTLY PRN, Starting on Sandra 07/02/23 at 1748, Until Thu07/08/23 at 1501, Sleep, Sleep, Routine Given 07/07/2023 9:15 PM EDT 3 mg Given 07/06/2023 9:48 PM EDT 3 mg Given 07/02/2023 10:02 PM EDT 3 mg metoprolol (LOPRESSOR) injection 2.5 mg 2.5 mg, Intravenous, EVERY 6 HOURS, First dose on Thu07/03/23 at 2315, Until Discontinued Given 07/08/2023 10:50 AM EDT 2.5 mg Given 07/08/2023 5:32 AM EDT 2.5 mg Given 07/08/2023 12:03 AM EDT 2.5 mg ondansetron (pf) (Zofran) (2 mg/mL) injection 4 mg 4 mg, Intravenous, EVERY 8 HOURS PRN, Starting on Thu07/02/23 at 1749, Until Thu07/08/23 at 1501, Nausea, 4 mg,Oral,EVERY 8 HOURS PRN, Nausea,Vomiting If multiple antiemetics are ordered, use ondansetron first. May repeat times one in 30 minutes if ineffective. ondansetron ODT (Zofran-ODT) disintegrating tablet 4 mg 4 mg, Oral, EVERY 8 HOURS PRN, Starting on Sandra 07/02/23 at 1749, Until Thu07/08/23 at 1501, Nausea, If multiple antiemetics are ordered, use ondansetron first. PO Preferred. If patient unable to take PO, may give IV if ordered. May repeat times one in 45 minutes if ineffective. , Routine pantoprazole (Protonix) injection 40 mg 40 mg, Intravenous, DAILY, First dose on Thu07/04/23 at 0900, Until Discontinued, Reconstitute with 10 mL of normal saline to a concentration of 4 mg/mL and inject slowly over 2 minutes. Reconstitute with 10 mL of normal saline to a concentration of 4 mg/mL and inject slowly over 2 minutes., Routine Given 07/05/2023 8:31 AM EDT 4 0 mg Given 07/04/2023 8:07 AM EDT 40 mg pantoprazole EC (Protonix) tablet 40 mg 40 mg, Oral, DAILY, First dose on Thu07/04/23 at 0900, Until Discontinued, DO NOT CRUSH OR OPEN If unable to take PO, may give IV, Routine Given 07/08/2023 8:39 AM EDT 40 mg Given 07/07/2023 8:36 AM EDT 40 mg Given 07/06/2023 8:49 AM EDT 40 mg polyethylene glycoL (Miralax) packet 17 g 17 g, Oral, DAILY, First dose on Thu07/07/23 at 1315, Until Discontinued, Routine Given 07/07/2023 1:35 PM EDT 17 g senna-docusate (Pericolace) 8.6-50 mg per tablet 2 tablet 2 tablet, Oral, 2 TIMES DAILY, First dose on Thu07/03/23 at 2315, Until Discontinued, Hold for loose stool. , Routine Given 07/08/2023 8:39 AM EDT 2 tablets Given 07/07/2023 9:15 PM EDT 2 tablets Given 07/06/2023 9:48 PM EDT 2 tablets sertraline (Zoloft) tablet 100 mg 100 mg, Per NG tube, DAILY, First dose (after last modification) on Thu07/04/23 at 0900, Until Discontinued, Routine Given 07/08/2023 8:39 AM EDT 100 mg Given 07/07/2023 8:37 AM EDT 100 mg Given 07/06/2023 8:50 AM EDT 100 mg sodium chloride 0.9 % (flush) (BD PosiFlush Normal Saline 0.9) flush 5 mL 5 mL, Intravenous, 2 TIMES DAILY, First dose on Thu07/02/23 at 2100, Until Discontinued, Routine Given 07/08/2023 8:42 AM EDT 5 mLs Given 07/07/2023 9:16 PM EDT 5 mLs Given 07/07/2023 8:39 AM EDT 5 mLs sodium chloride 0.9 % (flush) (BD PosiFlush Normal Saline 0.9) flush 5 mL 5 mL, Intravenous, 2 TIMES DAILY, First dose on Thu07/03/23 at 2315, Until Discontinued, Recovery (Recovery-Hospital Unit), Routine Given 07/08/2023 8:42 AM EDT 5 mLs Given 07/07/2023 9:15 PM EDT 5 mLs Given 07/07/2023 8:40 AM EDT 5 mLs sodium chloride 0.9 % (flush) (BD PosiFlush Normal Saline 0.9) flush 5-20 mL 5-20 mL, Intravenous, EVERY 1 MIN PRN, Starting on Sandra 07/02/23 at 1748, Until 07/08/23 at 1501, flush, Flush pertains to all indwelling lines. Flush per protocol found in the job aid using the link provided on this medication record., Routine topiramate (Topamax) tablet 25 mg 25 mg, Per NG tube, DAILY, First dose on 07/04/23 at 0900, Until Discontinued, DO NOT SPLIT, CRUSH OR OPEN, Routine Given 07/08/2023 8:39 AM EDT 25 mg Given 07/07/2023 8:37 AM EDT 25 mg Given 07/06/2023 8:51 AM EDT 25 mg documented in this encounter Active and Recently Administered Medications Times are shown in EDT. Scheduled Medication Order 07/06/2023 07/07/2023 07/08/2023 acetaminophen (Tylenol) tablet 975 mg 975 mg, Oral, EVERY 6 HOURS SCHEDULED, First dose on 07/06/23 at 1630, Until Discontinued, Maximum dose of acetaminophen is 4,000 mg from all sources in 24 hours. When ordered for pain, acetaminophen should be given even when other ordered pain medications are indicated., Routine 1717 (Given - Provider: Selena Odonnell LPN)2148 (Given - Provider: Yessenia Candelario RN) 0501 (Given - Provider: Yessenia Candelario RN)1055 (Given - Provider: Selena Odonnell LPN)1707 (Given - Provider: Selena Odonnell LPN) 0003 (Given - Provider: Yessenia Candelario RN)0532 (Given - Provider: Yessenia Candelario RN)1050 (Given - Provider: Shivani Seay LPN) ampicillin-sulbactam (Unasyn) 3 g vial attach to sodium chloride 0.9% 100 mL Mini-Bag Plus (CANCELED) 3 g, Intravenous, EVERY 6 HOURS, First dose on Thu07/03/23 at 2315, Until Discontinued, Administer over 15 Minutes, Warning Vesicant/Irritant Medication , Indication for (Active or Suspected): GI/Intra-abdominal 0011 (New Bag - Provider: Dorota Martin RN)0026 (Stopped - Provider: Dorota Martin RN)0441 (New Bag - Provider: Dorota Martin RN)0456 (Stopped - Provider: Dorota Martin RN)1150 (New Bag - Provider: Selena Odonnell LPN)1205 (Stopped - Provider: Amadou Martinez RN)1717 (New Bag - Provider: Selena Odonnell LPN)1732 (Stopped - Provider: Amadou Martinez RN) 0022 (New Bag - Provider: Yessenia Candelario RN)0037 (Stopped - Provider: Yessenia Candelario RN)0501 (New Bag - Provider: Yessenia Candelario RN)0516 (Stopped - Provider: Yessenia Candelario RN)1132 (New Bag - Provider: Selena Odonnell LPN)1147 (Stopped - Provider: Selena Odonnell, CD REACTOR OPERATOR HEAD)1715 (New Bag - Provider: Selena Odonnell, CD REACTOR OPERATOR HEAD)1900 (Stopped - Provider: Yessenia Candelario, EDWARD) 0003 (New Bag - Provider: Yessenia Candelario, EDWARD)0018 (Stopped - Provider: Yessenia Candelario, EDWARD)0532 (New Bag - Provider: Yessenia Candelario, EDWARD)0547 (Stopped - Provider: Yessenia Candelario, EDWARD)1053 (New Bag - Provider: Shivani Seay LPN)1105 (Stopped - Provider: Shivani Seay LPN - Comment: Time automatically adjusted from order being discontinued) ARIPiprazole (Abilify) tablet 10 mg 10 mg, Per NG tube, DAILY, First dose (after last modification) on 07/04/23 at 0900, Until Discontinued, Routine 0849 (Given - Provider: Selena Odonnell LPN) 0836 (Given - Provider: Selena Odonnell LPN) 0839 (Given - Provider: Shivani Seay LPN) atorvastatin (Lipitor) tablet 10 mg 10 mg, Per NG tube, DAILY, First dose (after last modification) on 07/04/23 at 0900, Until Discontinued, Routine 0849 (Given - Provider: Selena Odonnell LPN) 0836 (Given - Provider: Selena Odonnell LPN) 0839 (Given - Provider: Shivani Seay LPN) heparin (porcine) (5,000 units/1 mL) subcutaneous injection 5,000 Units 5,000 Units, Subcutaneous, EVERY 8 HOURS SCHEDULED, First dose on Sandra 07/02/23 at 1752, Until Discontinued, Routine 0628 (Given - Provider: Dorota Martin RN)1443 (Given - Provider: Selena Odonnell LPN)2148 (Given - Provider: Yessenia Candelario RN) 0619 (Given - Provider: Yessenia Candelario RN)1335 (Given - Provider: Selena Odonnell LPN)2115 (Given - Provider: Yessenia Candelario RN) 0532 (Given - Provider: Yessenia Candelario RN) ketorolac (Toradol) (15 mg/mL) injection 15 mg (COMPLETED) 15 mg, Intravenous, EVERY 6 HOURS, 10 doses, First dose on Thu07/05/23 at 1000, Last dose on Thu07/07/23 at 1600, Routine 0402 (Given - Provider: Dorota Martin RN)1031 (Given - Provider: Selena Odonnell LPN)1716 (Given - Provider: Selena Odonnell LPN)2148 (Given - Provider: Yessenia Candelario RN) 0459 (Given - Provider: Yessenia Candelario RN)1054 (Given - Provider: Selena Odonnell LPN)170 (Given - Provider: Selena Odonnell LPN) levothyroxine (Synthroid) tablet 25 mcg 25 mcg, nephrostomy tube, DAILY, First dose (after last modification) on Thu07/04/23 at 0600, Until Discontinued, Routine 0627 (Given - Provider: Dorota Martin RN) 0619 (Given - Provider: Yessenia Candelario RN) 0532 (Given - Provider: Yessenia Candelario RN) lidocaine (Lidoderm) 5% patch 2 patch 2 patch, Transdermal, Administer over 12 Hours, EVERY 24 HOURS, First dose on Thu07/03/23 at 2315, Until Discontinued, Apply patch(es) for 12 hours, and then remove for 12 hours., Routine 0011 (Not Given - Provider: Dorota Martin RN - Reason: Patient/family refused)2315 (Not Given - Provider: Yessenia Candelario RN - Reason: Patient/family refused) 2315 (Not Given - Provider: Yessenia Candelario RN - Reason: Patient/family refused) metoprolol (LOPRESSOR) injection 2.5 mg 2.5 mg, Intravenous, EVERY 6 HOURS, First dose on Thu07/03/23 at 2315, Until Discontinued 0011 (Given - Provider: Dorota Martin RN)0436 (Given - Provider: Dorota Martin RN)1031 (Given - Provider: Selena Odonnell LPN)1717 (Given - Provider: Selena Odonnell LPN) 0022 (Given - Provider: Yessenia Candelario RN - Comment: BP 130/79 HR 74)0459 (Given - Provider: Yessenia Candelario RN - Comment: BP 129/79 HR 72)1054 (Given - Provider: Selena Odonnell LPN)1707 (Given - Provider: Selena Odonnell LPN) 0003 (Given - Provider: Yessenia Candelario RN - Comment: BP 137/85 HR 71)0532 (Given - Provider: Yessenia Candelario RN - Comment: BP 127/84 HR 64)1050 (Given - Provider: Shivani Seay LPN) pantoprazole (Protonix) injection 40 mg(Linked Group 1) 40 mg, Intravenous, DAILY, First dose on 07/04/23 at 0900, Until Discontinued, Reconstitute with 10 mL of normal saline to a concentration of 4 mg/mL and inject slowly over 2 minutes. Reconstitute with 10 mL of normal saline to a concentration of 4 mg/mL and inject slowly over 2 minutes., Routine 0849 (See Alternative - Provider: Selena Odonnell LPN) 0836 (See Alternative - Provider: Selena Odonnell LPN) 0839 (See Alternative - Provider: Shivani Seay LPN) pantoprazole EC (Protonix) tablet 40 mg(Linked Group 1) 40 mg, Oral, DAILY, First dose on 07/04/23 at 0900, Until Discontinued, DO NOT CRUSH OR OPEN If unable to take PO, may give IV, Routine 0849 (Given - Provider: Selena Odonnell LPN) 0836 (Given - Provider: Selena Odonnell LPN) 0839 (Given - Provider: Shivani Seay LPN) polyethylene glycoL (Miralax) packet 17 g 17 g, Oral, DAILY, First dose on Thu07/07/23 at 1315, Until Discontinued, Routine 1335 (Given - Provider: Selena Odonnell LPN) 0900 (Not Given - Provider: Shivani Seay LPN - Reason: Patient/family refused) potassium phosphate 15 mMol in sodium chloride 0.9% 250 mL infusion (COMPLETED) 15 mmol, Intravenous, ONCE, 1 dose, On Thu07/06/23 at 0615, Administer over 4 Hours, Administer over 4-6 hours 0635 (New Bag - Provider: Dorota Matrin RN)1035 (Stopped - Provider: Selena Odonnell LPN) senna-docusate (Pericolace) 8.6-50 mg per tablet 2 tablet 2 tablet, Oral, 2 TIMES DAILY, First dose on Thu07/03/23 at 2315, Until Discontinued, Hold for loose stool. , Routine 0849 (Given - Provider: Selena Odonnell LPN)2147 (Given - Provider: Yessenia Candelario RN) 899 (Not Given - Provider: Selena Odonnell LPN - Reason: Patient/family refused)2114 (Given - Provider: Yessenia Candelario RN) 08 (Given - Provider: Shivani Seay LPN) sertraline (Zoloft) tablet 100 mg 100 mg, Per NG tube, DAILY, First dose (after last modification) on Thu07/04/23 at 0900, Until Discontinued, Routine 0850 (Given - Provider: Selena Odonnell LPN) 0837 (Given - Provider: Selena Odonnell LPN) 08 (Given - Provider: Shivani Seay LPN) sodium chloride 0.9 % (flush) (BD PosiFlush Normal Saline 0.9) flush 5 mL 5 mL, Intravenous, 2 TIMES DAILY, First dose on Thu07/02/23 at 2100, Until Discontinued, Routine 0852 (Given - Provider: Selena Odonnell LPN)2148 (Given - Provider: Yessenia Candelario RN) 0839 (Given - Provider: Selena Odonnell LPN)2115 (Given - Provider: Yessenia Candelario RN) 0842 (Given - Provider: Shivani Seay LPN) sodium chloride 0.9 % (flush) (BD PosiFlush Normal Saline 0.9) flush 5 mL 5 mL, Intravenous, 2 TIMES DAILY, First dose on Thu07/03/23 at 2315, Until Discontinued, Recovery (Recovery-Hospital Unit), Routine 0851 (Given - Provider: Selena Odonnell LPN)2148 (Given - Provider: Yessenia Candelario RN) 0840 (Given - Provider: Selena Odonnell LPN)2115 (Given - Provider: Yessenia Candelario RN) 0842 (Given - Provider: Shivani Seay LPN) topiramate (Topamax) tablet 25 mg 25 mg, Per NG tube, DAILY, First dose on 07/04/23 at 0900, Until Discontinued, DO NOT SPLIT, CRUSH OR OPEN, Routine 0851 (Given - Provider: Selena Odonnell LPN) 0837 (Given - Provider: Selena Odonnell LPN) 0839 (Given - Provider: Shivani Seay LPN) Continuous Medication Order 07/06/2023 07/07/2023 07/08/2023 lactated ringers infusion (CANCELED) 1,000 mL, at 100 mL/hr, Intravenous, CONTINUOUS, Starting on Sandra 07/02/23 at 1752, Until 07/06/23 at 1141 0245 (New Bag - Provider: Dorota Martin RN)0637 (Paused - Provider: Dorota Martin RN - Comment: K-phosphate started infusion. K-phos and LR are not compatible.)1141 (Stopped - Provider: Amadou Martinez RN) PRN Medication Order 07/06/2023 07/07/2023 07/08/2023 ibuprofen (Advil) tablet 600 mg 600 mg, Oral, EVERY 6 HOURS PRN, Starting on Thu07/08/23 at 0000, Until Thu07/08/23 at 1501, Pain, Administer orally with milk or food to minimize GI irritation. Maximum dose of 3,200 mg from all sources in 24 hours, Routine 1204 (Given - Provider: Shivani Seay LPN) lidocaine (Xylocaine) 1% (10 mg/mL) injection 3 mg 3 mg (0.3 mL), Subcutaneous, ONCE PRN, 1 dose, Starting on Sandra 07/02/23 at 1748, Until Thu07/08/23 at 1501, for discomfort with PIV insertion, Routine lidocaine (Xylocaine) 1% (10 mg/mL) injection 3 mg 3 mg (0.3 mL), Subcutaneous, ONCE PRN, 1 dose, Starting on Thu07/03/23 at 2227, Until Thu07/08/23 at 1501, for discomfort with PIV insertion, Recovery (Recovery-Hospital Unit), Routine melatonin tablet 3 mg 3 mg, Oral, NIGHTLY PRN, Starting on Sandra 07/02/23 at 1748, Until Thu07/08/23 at 1501, Sleep, Sleep, Routine 2147 (Given - Provider: Yessenia Candelario RN) 2114 (Given - Provider: Yessenia Candelario RN) ondansetron (pf) (Zofran) (2 mg/mL) injection 4 mg(Linked Group 2) 4 mg, Intravenous, EVERY 8 HOURS PRN, Starting on Sandra 07/02/23 at 1749, Until Thu07/08/23 at 1501, Nausea, 4 mg,Oral,EVERY 8 HOURS PRN, Nausea,Vomiting If multiple antiemetics are ordered, use ondansetron first. May repeat times one in 30 minutes if ineffective. ondansetron (pf) (Zofran) (2 mg/mL) injection 4 mg 4 mg, Intravenous, EVERY 30 MIN PRN, 2 doses, Starting on Thu07/03/23 at 2039, Until Thu07/08/23 at 1501, Nausea, May repeat dose once in 30 minutes if no relief from previous dose. If multiple antiemetics are ordered, use ondansetron first, prochlorperazine second. Per PROCESS SAFETY MANAGER order., Recovery (Recovery-Hospital Unit) ondansetron ODT (Zofran-ODT) disintegrating tablet 4 mg(Linked Group 2) 4 mg, Oral, EVERY 8 HOURS PRN, Starting on Sandra 07/02/23 at 1749, Until Thu07/08/23 at 1501, Nausea, If multiple antiemetics are ordered, use ondansetron first. PO Preferred. If patient unable to take PO, may give IV if ordered. May repeat times one in 45 minutes if ineffective. , Routine prochlorperazine (Compazine) (5 mg/mL) injection 5 mg 5 mg, Intravenous, EVERY 30 MIN PRN, 2 doses, Starting on Thu07/03/23 at 2039, Until Thu07/08/23 at 1501, Nausea, May repeat in 30 minutes if no relief from previous dose. HOLD if patient is sedated. Maximum dose is 40 mg in 24 hours. If multiple antiemetics are ordered, use ondansetron first, prochlorperazine second. Per PROCESS SAFETY MANAGER order., Recovery (Recovery-Hospital Unit), Routine sodium chloride 0.9 % (flush) (BD PosiFlush Normal Saline 0.9) flush 5-20 mL 5-20 mL, Intravenous, EVERY 1 MIN PRN, Starting on Sandra 07/02/23 at 1748, Until Thu07/08/23 at 1501, flush, Flush pertains to all indwelling lines. Flush per protocol found in the job aid using the link provided on this medication record., Routine sodium chloride 0.9 % (flush) (BD PosiFlush Normal Saline 0.9) flush 5-20 mL 5-20 mL, Intravenous, EVERY 1 MIN PRN, Starting on Thu07/03/23 at 2227, Until Thu07/08/23 at 1501, flush, Flush pertains to all indwelling lines. Flush per protocol found in the job aid using the link provided on this medication record., Recovery (Recovery-Hospital Unit), Routine Linked Groups Order Group 1: pantoprazole EC (Protonix) tablet 40 mgJump to med 40 mg, Oral, DAILY, First dose on 07/04/23 at 0900, Until Discontinued, DO NOT CRUSH OR OPEN If unable to take PO, may give IV, Routine Or pantoprazole (Protonix) injection 40 mgJump to med 40 mg, Intravenous, DAILY, First dose on 07/04/23 at 0900, Until Discontinued, Reconstitute with 10 mL of normal saline to a concentration of 4 mg/mL and inject slowly over 2 minutes. Reconstitute with 10 mL of normal saline to a concentration of 4 mg/mL and inject slowly over 2 minutes., Routine Group 2: ondansetron ODT (Zofran-ODT) disintegrating tablet 4 mgJump to med 4 mg, Oral, EVERY 8 HOURS PRN, Starting on Sandra 07/02/23 at 1749, Until Thu07/08/23 at 1501, Nausea, If multiple antiemetics are ordered, use ondansetron first. PO Preferred. If patient unable to take PO, may give IV if ordered. May repeat times one in 45 minutes if ineffective. , Routine Or ondansetron (pf) (Zofran) (2 mg/mL) injection 4 mgJump to med 4 mg, Intravenous, EVERY 8 HOURS PRN, Starting on Sandra 07/02/23 at 1749, Until 07/08/23 at 1501, Nausea, 4 mg,Oral,EVERY 8 HOURS PRN, Nausea,Vomiting If multiple antiemetics are ordered, use ondansetron first. May repeat times one in 30 minutes if ineffective. documented in this encounter Care Teams Nutrition Program Instructor Relationship Specialty Start Date End Date Peter Lebron PA [address] [place] [address] PCP - General Internal Medicine 08/21/22 documented as of this encounter
--- OUTSIDE RECORDS SUMMARY | 2024-02-29 15:43 | XMS_ITS | Encounter Summary ---
Author Organization Formerly [facility] [place] [address] Care Team Providers Care Trucking Manager Name Role Phone Peter Lebron Primary Care Provider Reason for Visit * Reason Comments Abdominal Pain * Auth/Cert (Routine) Specialty Diagnoses / Procedures Referred By Contac t Referred To Contact Diagnoses Small bowel obstruction Reuben Thibodeaux MD [facility] [place] [address] [facility] Referral ID Status Reason Start Date Expiration Date Visits Re quested Visits Authorized [id number] 1 1 Encounter Details Date Type Department Care Team (Latest Contact Info) Description 07/02/2023 1:43 PM EDT - 07/08/2023 12:55 PM EDT Hospital Encounter Surgical Unit Level 3 [place] [id number] Aria Nuñez MD [facility] EMERG[place] [address] Reuben Thibodeaux MD [facility] [place] [address] Small bowel obstruction Discharge Disposition: Home Social History Tobacco Use [...] place to sleep or slept in a senior care (including now)? No 07/03/2023 DH IPV Inpatient [...] Sign Reading Time Taken Comments Blood Pressure 142/93 07/08/2023 11:25 AM EDT Pulse 85 07/07/2023 5:07 PM EDT Temperature 36.6 ??C (97.9 ??F) 07/08/2023 11:25 AM E DT Respiratory Rate 18 07/08/2023 11:25 AM EDT Oxygen Saturation 97% 07/08/2023 11:25 AM EDT Inhaled Oxygen Concentration - - [...] function. 07/04: Difficulty with pain control on POT FILLER, ordered Toradol. Passing gas. NGT removed and [...] 34.6* PLATELET 279 255 216 Recent Labs 07/08/238 07/07/239 07/06/23 0353 NA 138 141 138 K [...] who have questions please contact the health cardiac care unit nurse that requested your imaging first. Electronically signed by: Chapin Peacock MD, [facility] ([phone]), at 07/04/2023 12:40 AM SCAN DOC: TELEMETRY STRIPS Result Date: 07/03/2023 Ordered [...] who have questions please contact the health cardiac care unit nurse that requested your imaging first. Electronically signed by: Cl Graham MD, [facility] ([phone]), at 07/02/2023 4:[address] Head wo Contrast (Generic) Result Date: 07/02/2023 EXAMINATION: CT HEAD WO CONTRAST (GENERIC) CLINICAL HISTORY: recurrent epigastric abdominal pain and emesis in patient with LOADER MAGAZINE GRINDER shunt, Pt with PMH of congenital hydrocephalus [...] who have questions please contact the health cardiac care unit nurse that requested your imaging first. Electronically signed by: Jackson Jules DO, [facility] ([phone]), at 07/02/2023 3:57 PM XR Shunt Series Result Date: 07/02/2023 EXAMINATION: XR [...] who have questions please contact the health cardiac care unit nurse that requested your imaging first. Electronically signed [facility]: [facility] ([phone]), at 07/02/2023 3:54 PM XR Shunt Series [...] who have questions please contact the health cardiac care unit nurse that requested your imaging first. Electronically signed by: [facility] ([phone]), at 06/30/2023 9:07 AM XR Chest One [...] who have questions please contact the health cardiac care unit nurse that requested your imaging first. Electronically signed by: Chapin Lee MD, [facility] ([phone]), at 06/30/2023 8:41 AM SCAN DOC: TELEMETRY STRIPS Result Date: 06/29/2023 [...] who have questions please contact the health cardiac care unit nurse that requested your imaging first. Electronically signed by: Kandi Duatre MD, [facility] ([phone]), at 06/28/2023 10:35 AM XR Abdomen Flat & Upright Result Date: 06/27/2023 [...] who have questions please contact the health cardiac care unit nurse that requested your imaging first. Electronically signed by: Kandi Duarte MD, [facility] ([phone]), at 06/27/2023 8:45 PM XR Abdomen 1 view (Generic) Result Date: 06/27/2023 EXAMINATION: XR ABDOMEN 1 VIEW (GENERIC) CLINICAL HISTORY: Please obtain upright. Assess for intra-abdominal pathology with recent intra-abdominal infection and new emesis/bloating. TECHNIQUE: AP abdominal radiograph (2 images) COMPARISON: CT abdomen pelvis 06/16/2023 FINDINGS: The lower abdomen andpelvis are excluded from the [id number]. Imaged bowel loops are nondilated. No free [...] who have questions please contact the health cardiac care unit nurse that requested your imaging first. Electronically signed by: Kandi Duarte MD, [facility] ([phone]), at 06/27/2023 7:36 PM SCAN DOC: TELEMETRY STRIPS Result Date: 06/25/2023 Ordered [...] who have questions please contact the health cardiac care unit nurse that requested your imaging first. Electronically signed by: MD Lakshmi, [facility] ([phone]), at 06/16/2023 2:49 PM XR Shunt Series Result Date: 06/16/2023 EXAMINATION: XR SHUNT SERIES CLINICAL HISTORY: recent revision recent revision, new abdominal pain,headache. TECHNIQUE: Multiple AP and lateral views of skull, chest, abdomen. COMPARISON: Radiographshunt series 06/09/2023 FINDINGS: Right frontal approach LOADER MAGAZINE GRINDER shunt catheter, with the intracranial portion terminating [...] gas pattern. Cholecystectomy clips Right frontal approach LOADER MAGAZINE GRINDER shunt catheter with focal discontinuity at the [...] who have questions please contact the health cardiac care unit nurse that requested your imaging first. Electronically signed by: Kraig Rizvi MD, [facility] ([phone]), at 06/16/2023 11:[address] Head wo Contrast (Generic) Result Date: 06/16/2023 [...] who have questions please contact the health cardiac care unit nurse that requested your imaging first. Electronically signed by: Eris Hicks MD, [facility] ([phone]), at 06/16/2023 11:11 AM XR Shunt Series Result Date: 06/10/2023 EXAMINATION: XR [...] who have questions please contact the health cardiac care unit nurse that requested your imaging first.Electronically signed by: Aria Tsai MD, [facility] ([phone]), at 06/10/2023 10:11 AM SCAN DOC: TELEMETRY STRIPS Result Date: 06/09/2023 Ordered by an unspecified provider. Request For 2nd Read CT Abdomen & Pelvis Result Date: 06/09/2023 EXAMINATION: REQUEST FOR 2ND READ CT ABDOMEN AND PELVIS CLINICAL HISTORY: abdominal pain; Sending Institution [facility]; Date of exam [id number]; I believe a reinterpretation of this exam may alter care of Patient. Yes TECHNIQUE: Reinterpretation of CT abdomen pelvis without intravenous contrast performedat [facility] on 06/06/2023 at 1350 hours. COMPARISON: Shunt [...] present in the left omentum. Abdominal wall: LOADER MAGAZINE GRINDER shunt is fractured in the right upper abdominalwall, (series 4 image 94). LOADER MAGAZINE GRINDER shunt catheter enters the peritoneal space through the right rectus abdominal muscle. Bilateral small fat-containing inguinal hernias. Reproductive organs: Normal. Osseous structures: No suspicious lesions. Mild degenerative changes in the lumbar spine. 1. Fractured LOADER MAGAZINE GRINDER shunt catheter in the subcutaneous tissues of [...] who have questions please contact the health cardiac care unit nurse that requested your imaging first. Electronically signed by: Kierra Newsome MD, [facility] ([phone]), at 06/09/2023 7:[address] Head wo Contrast (Generic) Result Date: 06/08/2023 [...] patients who have questions please contactthe health cardiac care unit nurse that requested your imaging first. Electronically signed by: Rich Ray MD, [facility] ([phone]), at 06/08/2023 6:59 PM XR Shunt Series Result Date: 06/08/2023 EXAMINATION: XR [...] who have questions please contact the health cardiac care unit nurse that requested your imaging first. Electronically signed by: Santana Jean-Baptiste MD, [facility] ([phone]), at 06/08/2023 6:47 PM Outpatient Services/Studies: No [...] Center 07/15/2023 12:00 PM NURSE, GENERAL SURG[place] [facility] [place] 07/15/2023 1:20 PM NURSE, NEUROS[place] [facility] [id number] 07/15/2023 2:30 PM Valdo Awan MD [facility] [place] [id number] [facility] 07/29/2023 12:00 PM Annalise Rivera APRN [facility] 08/13/2023 11:40 AM Cl Atkins PA [address] Pain control: Non-steroidal anti-inflammatories (NSAIDS) such [...] 1. You will have follow-up appointments at [facility] as indicated in the ???Future Appointments and Orders?? section of your discharge summary. 2. If you do not have a scheduled follow-up appointment listed at the time of discharge, you will be notified of your scheduled appointment on the next business day. Please call [phone] if you do not hear from us by that time, as your timely follow-up is very important to us. Your care was managed by the Trauma and Acute Care Surgery Team at [facility]. If you have any questions or concerns, please feel free to contact us. Provider Contact Information: General Surgery: [facility] (after business hours): Primary Care Physician: MARVA Gordon General Instructions None Future Appointments and Orders Future Appointments and Orders Future Appointments Provider Department Dept Phone 07/15/2023 12:00 PM NURSE, GENERAL SURGERY General Surgery at [facility] Arrive at: [employer]airer Area 4L [phone] 07/15/2023 1:20 PM NURSE, NEUROSURGERY Neurosurgery at [facility] Arrive at: [employer] Area 3C [phone] 07/15/2023 2:30 PM Valdo Awan MD Infectious Disease at [facility] Arrive at: [employer]r Area 5C [phone] 07/29/2023 12:00 PM Annalise Rivera APRN General Surgery at [facility] Arrive at: [employer] Return Rep[employer]r Area 4L [phone] 08/13/2023 11:40 AM Cl Atkins PA Neurosurgery at [facility] Arrive at: Field Return Repairer Area 3C [phone] Signed: Skye Ty MD General Surgery [facility] pager [phone] Primary [place] Physician: MARVA [address] DR [address] / [facility] [id number] Associated attestation - Reuben Thibodeaux MD - [...] Center 07/15/2023 12:00 PM NURSE, GENERAL SURGERY [facility] 07/15/2023 1:20 PM NURSE, NEUROSURGERY [facility] [id number] 07/15/2023 2:30 PM Valdo Awan MD [facility] [place] [facility]C [facility] 07/29/2023 12:00 PM Annalise Rivera APRN [facility] 08/13/2023 11:40 AM Cl Atkins PA [facility] [id number] Pain control: Non-steroidal anti-inflammatories (NSAIDS) such [...] 1. You will have follow-up appointments at [facility] as indicated in the ???Future Appointments and Orders?? section of your discharge summary. 2. If you do not have a scheduled follow-up appointment listed at the time of discharge, you will be notified of your scheduled appointment on the next business day. Please call [phone] if you do not hear from us by that time, as your timely follow-up is very important to us. Your care was managed by the Trauma and Acute Care Surgery Team at [facility]. If you have any questions or concerns, please feel free to contact us. Provider Contact Information: General Surgery: [facility] (after business hours): Primary Care Physician: MARVA Gordon * Attachments The following attachments cannot be sent through Care Everywhere. * Bowel Resection: Open: Post-op (Vincentian) documented in this encounter Medications at Time [...] of this encounter Progress Notes * Shivani Seay LPN - 07/08/2023 12:53 PM EDT Patient discharged home with mother, iv removed ans education given on isabella in abdomen and head.Patient took bedside belonging home on discharge. He was discharged in private car. * Skye Ty MD - 07/07/2023 2:03 PM EDT [facility] Acute Care Surgery Inpatient Progress Note Patient: Chapin Costa : 1970 Room: [address] [place], [place] [address] Admit date: 07/02/2023 Attending: Reuben Thibodeaux MD [...] Neuro/Psych: A&Ox3. Appropriate mood. Labs: Recent Labs 07/07/23 0149 07/06/23 0353 07/05/23 0336 WBC 11.0* 12.4* 14.7* HGB 11.3* 11.6* 13.6* HCT 34.9* 34.6* 41.0 PLATELET 255 216 260 Recent Labs 07/07/23 0149 07/06/23 0353 07/05/23 0336 NA 141 138 138 [...] 07/02/2023 3:43 PM) Result Value WORKSTATION ID [id number] Narrative EXAMINATION: XR SHUNT SERIES CLINICAL HISTORY: [...] who have questions please contact the health cardiac care unit nurse that requested your imaging first. Electronically signed by: Emerita Bernstein MD, [facility] ([phone]), at 07/02/2023 3:[address] Head wo Contrast (Generic) (Exam End: 07/02/2023 3:49 PM) Result Value WORKSTATION ID [id number] Narrative EXAMINATION: CT HEAD WO CONTRAST (GENERIC) CLINICAL HISTORY: recurrent epigastric abdominal pain and emesis in patient with LOADER MAGAZINE GRINDER shunt, Pt with PMH of congenital hydrocephalus [...] who have questions please contact the health cardiac care unit nurse that requested your imaging first. Electronically signed by: Jackson Jules DO, [facility] ([phone]), at 07/02/2023 3:[address] Abdomen & Pelvis w Contrast (Exam End: 07/02/2023 3:49 PM) Result Value WORKSTATION ID [id number] Narrative EXAMINATION: CT ABDOMEN AND PELVIS W [...] who have questions please contact the health cardiac care unit nurse that requested your imaging first. Electronically signed by: Cl Graham MD, [facility] ([phone]), at 07/02/2023 4:15 PM XR Abdomen 1 view (Generic) (Exam End: 07/03/2023 9:00 PM) Result Value WORKSTATION ID [id number] Narrative EXAMINATION: XR ABDOMEN 1 VIEW (GENERIC) [...] who have questions please contact the health cardiac care unit nurse that requested your imaging first. Electronically signed by: Chapin Peacock MD, [facility] ([phone]), at 07/04/2023 12:40 AM A/P: Chapin Costa is a 52 y.o. male who underwent LOADER MAGAZINE GRINDER shunt externalization, post-op course was complicated by N/V without significant obstruction, presenting with similar symptoms likely a SBO. He is 4 Days Post-Op s/p exploratory laparotomy, BITA, and SBR. Tolerating regular diet and passing flatus, no BM. Pain controlled with scheduled toradol, will order to time out today and start oral NSAID tonight PRN. Not requiring oxycodone, discontinued. Julian in place, to be removed on 07/14-07/18. Will encourage OOB and added miralax to assist with BM. Neuro: - Analgesia: Acetaminophen and Ketorolac, POT FILLER d/c'd 07/05. - Continue home Abilify, sertraline, [...] Inpatient Skye Ty MD 07/06/2023 Service Pager: [phone] Associated attestation - Reuben Thibodeaux MD - 07/08/2023 3:42 PM EDT I have seen the patient in person and reviewed the above history and I agree with the details as written. The assessment and plan were formulated in discussion with me and I agree with them as documented. Reuben Thibodeaux MD * kSye Ty MD - 07/07/2023 11:23 AM EDT ID/MECHANISM OF INJURY: Chapin Costa is a 52 y.o. male s/p bowel resection and small intestine anastomosis for bowelobstruction OR CASE INFORMATION: 07/03/2023 Procedure(s): @BOWEL RESECTION, SMALL INTESTINE SINGLE ANASTOMOSIS (WRVU 20.82) FOLLOW-UP NEEDED: Does pt need to f-u with surgeon or PHOTOGRAMMETRY AIRPLANE PILOT (please indicate reason if attending provider): PHOTOGRAMMETRY AIRPLANE PILOT How soon should ACS f/u be? 3-4 weeks 1 week nurse visit for staple removal Does patient need imaging prior to ACS f/u? No Are CT/MRI Safety questions complete (if needed)? No Does patient have isabella/sutures? What do they have? When should they be removed? What service is responsible? Yes Isabella 1 week ACS Does patient need labs [...] Noam Fragoso - 07/06/2023 3:54 PM EDT Financial Services Counselor Encounter Note Patient Name: Chapin Costa : [id number] MR#: [id number] Admit Date: 07/02/2023 1:43 PM Hospital Day 4 days Narrative:Visited to introduce and assess acceptance of Financial Services Counselor services. Assessment: patient was awake, alert, oriented and in bed. Patient coping positively with stresses of illness/hospitalization at this time. Patient says that he is hoping to get better and mother is helpful and he is taking one day at time. Intervention and Outcome:Provided emotional, spiritual support and listening presence. Financial Services Counselor services accepted. Conversation to build trusting relationship. Provided pastoral presence. Provided spiritual guidance. Follow-up: yes Time in Direct Care:06 Mins Noam Fragoso 07/06/2023 * Skye Ty MD - 07/06/2023 3:39 PM EDT [facility] Acute Care Surgery Inpatient Progress Note Patient: Chapin Costa : 1970 Room: [address] [place], [place] [address] Admit date: 07/02/2023 Attending: Reuben Thibodeaux MD [...] 07/02/2023 3:43 PM) Result Value WORKSTATION ID [id number] Narrative EXAMINATION: XR SHUNT SERIES CLINICAL HISTORY: [...] who have questions please contact the health cardiac care unit nurse that requested your imaging first. Electronically signed by: Emerita Bernstein MD, [facility] ([phone]), at 07/02/2023 3:[address] Head wo Contrast (Generic) (Exam End: 07/02/2023 3:49 PM) Result Value WORKSTATION ID [id number] Narrative EXAMINATION: CT HEAD WO CONTRAST (GENERIC) CLINICAL HISTORY: recurrent epigastric abdominal pain and emesis in patient with LOADER MAGAZINE GRINDER shunt, Pt with PMH of congenital hydrocephalus [...] who have questions please contact the health cardiac care unit nurse that requested your imaging first. Electronically signed by: Jackson Jules DO [facility] ([phone]), at 07/02/2023 3:[address] Abdomen & Pelvis w Contrast (Exam End: 07/02/2023 3:49 PM) Result Value WORKSTATION ID [id number] Narrative EXAMINATION: CT ABDOMEN AND PELVIS W [...] who have questions please contact the health cardiac care unit nurse that requested your imaging first. Electronically signed by: Cl Graham MD, [facility] ([phone]), at 07/02/2023 4:15 PM XR Abdomen 1 view (Generic) (Exam End: 07/03/2023 9:00 PM) Result Value WORKSTATION ID [id number] Narrative EXAMINATION: XR ABDOMEN 1 VIEW (GENERIC) [...] who have questions please contact the health cardiac care unit nurse that requested your imaging first. Electronically signed by: Chapin Peacock MD, [facility] ([phone]), at 07/04/2023 12:40 AM A/P: Chapin Costa is a 52 y.o. male who underwent LOADER MAGAZINE GRINDER shunt externalization, post-op course was complicated by N/V without significant obstruction, presenting with similar symptoms likely a SBO. He is 3 Days Post-Op s/p exploratory laparotomy, BITA, and SBR. Tolerated CLD yesterday and continues to pass flatus, no BM. Pain is better controlled today - willwork on transitioning him to PO pain medications and d/c POT FILLER. Will d/c his augustine and work on advancing him to a regular diet. Julian in place, to be removed on 07/14-07/18. Encourage pt to get OOB andambulate today. Neuro: - Analgesia: Acetaminophen, Ketorolac, and Oxycodone, POT FILLER d/c'd 07/05. - Continue home Abilify, sertraline, [...] Code: Attempt Cardiopulmonary Resuscitation - Inpatient Tatianna Ayala MS4 07/06/2023 Service Pager: [phone] Skye Ty MD 07/06/23 Associated attestation - [...] Bowens MD - 07/05/2023 8:01 AM EDT [facility] Acute Care Surgery Inpatient Progress Note Patient: Chapin Costa : 1970 Room: [address] [place], [place] [address] Admit date: 07/02/2023 Attending: Reuben Thibodeaux MD [...] Daily Or pantoprazole 40 mg Intravenous Daily POT FILLER shift total and Settings verification Intravenous 2 Times Daily- POT FILLER Shift Total lidocaine 2 patch Transdermal Q24H [...] Appropriate mood. Labs: Recent Labs 07/05/23 0336 07/04/2320007/03/232043 WBC 14.7* 18.6* 17.7* HGB 13.6* 16.1 [...] 07/02/2023 3:43 PM) Result Value WORKSTATION ID [id number] Narrative EXAMINATION: XR SHUNT SERIES CLINICAL HISTORY: [...] who have questions please contact the health cardiac care unit nurse that requested your imaging first. Electronically signed by: Emerita Bernstein MD, [facility] ([phone]), at 07/02/2023 3:[address] Head wo Contrast (Generic) (Exam End: 07/02/2023 3:49 PM) Result Value WORKSTATION ID [id number] Narrative EXAMINATION: CT HEAD WO CONTRAST (GENERIC) CLINICAL HISTORY: recurrent epigastric abdominal pain and emesis in patient with LOADER MAGAZINE GRINDER shunt, Pt with PMH of congenital hydrocephalus [...] who have questions please contact the health cardiac care unit nurse that requested your imaging first. Electronically signed by: Jackson Jules DO, [facility] ([phone]), at 07/02/2023 3:[address] Abdomen & Pelvis w Contrast (Exam End: 07/02/2023 3:49 PM) Result Value WORKSTATION ID [id number] Narrative EXAMINATION: CT ABDOMEN AND PELVIS W [...] who have questions please contact the health cardiac care unit nurse that requested your imaging first. Electronically signed by: Cl Graham MD, [facility] ([phone]), at 07/02/2023 4:15 PM XR Abdomen 1 view (Generic) (Exam End: 07/03/2023 9:00 PM) Result Value WORKSTATION ID [id number] Narrative EXAMINATION: XR ABDOMEN 1 VIEW (GENERIC) [...] who have questions please contact the health cardiac care unit nurse that requested your imaging first. Electronically signed by: Chapin Peacock MD, [facility] ([phone]), at 07/04/2023 12:40 AM A/P: Chapin Costa is a 52 y.o. male who underwent LOADER MAGAZINE GRINDER shunt externalization, post-op course was complicated by N/V without significant obstruction, presenting with similar symptoms likely a SBO. He is 2 Days Post-Op s/p exploratory laparotomy, BITA, and SBR. Pt passing flatus this morning. Reporting pain not well controlled on Dilaudid POT FILLER. LR running at 100 ccs/hr. Isabella to be removed on 07/14-07/18. Plan for NGT gravity trial today, have pt get OOB andambulate throughout the halls. Work on getting pain under better control with Toradol 15 mg Q6 hours PRN. Neuro: - Analgesia: Ketorolac and Dilaudid POT FILLER, - Continue home Abilify, sertraline, Topamax CV: [...] Inpatient Delgado Denis MD 07/05/2023 Service Pager: [phone] Attending Addendum I have seen and examined the patient and reviewed the history documented above and I agree with thedetails as written. I have reviewed the laboratory data and viewed the pertinent imaging. The assessment and plan were formulated in discussion with me and I agree with them as documented. Awaiting ROBF Did well with ngt clamp trial today and NGT removed D. Andrew Bowens MD * Delgado Denis MD - 07/04/2023 9:34 AM EDT [facility] Acute Care Surgery Inpatient Progress Note Patient: Chapin Costa : 1970 Room: [facility]/311-B Admit date: 07/02/2023 Attending: Reuben Thibodeaux MD [...] Daily Or pantoprazole 40 mg Intravenous Daily POT FILLER shift total and Settings verification Intravenous 2 Times Daily- POT FILLER Shift Total acetaminophen 1,000 mg Intravenous Q8H [...] Neuro/Psych: A&Ox3. Appropriate mood. Labs: Recent Labs 07/04/2320007/03/23204307/03/23245 WBC 18.6* 17.7* 12.1* HGB 16.1 16.6* 15.9 HCT 47.4 49.2* 46.3 PLATELET 333 358* 245 Recent Labs 07/04/23 02007/03/23204307/03/236 07/02/23 1502 NA 135 135 138 134* [...] 07/02/2023 3:43 PM) Result Value WORKSTATION ID [id number] Narrative EXAMINATION: XR SHUNT SERIES CLINICAL HISTORY: [...] who have questions please contact the health cardiac care unit nurse that requested your imaging first. Head wo Contrast (Generic) (Exam End: 07/02/2023 3:49 PM) Result Value WORKSTATION ID [id number] Narrative EXAMINATION: CT HEAD WO CONTRAST (GENERIC) CLINICAL HISTORY: recurrent epigastric abdominal pain and emesis in patient with LOADER MAGAZINE GRINDER shunt, Pt with PMH of congenital hydrocephalus [...] who have questions please contact the health cardiac care unit nurse that requested your imaging first. Electronically signed by: Jackson Jules DO [facility] ([phone]), at 07/02/2023 3:[address] Abdomen & Pelvis w Contrast (Exam End: 07/02/2023 3:49 PM) Result Value WORKSTATION ID [id number] Narrative EXAMINATION: CT ABDOMEN AND PELVIS W [...] who have questions please contact the health cardiac care unit nurse that requested your imaging first. Electronically signed by: Cl Graham MD, [facility] ([phone]), at 07/02/2023 4:15 PM XR Abdomen 1 view (Generic) (Exam End: 07/03/2023 9:00 PM) Result Value WORKSTATION ID [id number] Narrative EXAMINATION: XR ABDOMEN 1 VIEW (GENERIC) [...] who have questions please contact the health cardiac care unit nurse that requested your imaging first. Electronically signed by: Chapin Peacock MD, [facility] ([phone]), at 07/04/2023 12:40 AM A/P: Chapin Costa is a 52 y.o. male who underwent LOADER MAGAZINE GRINDER shunt externalization, post-op course was complicated by N/V without significant obstruction, presenting with similar symptoms likely a SBO. AROBF, IVF Isabella out 10-14 days Neuro: - Analgesia: Acetaminophen [...] Inpatient Delgado Denis MD 07/04/2023 Service Pager: [phone] Associated attestation - Reuben Thibodeaux MD - [...] ??C (98.2 ??F)] Heart Rate: [82-100] Resp: [12-] BP: (113-140)/(80-90) Intake/Output Summary (Last 24 hours) [...] A/O x 3 HEENT: NC/AT- NGT to [facility] Chest: CTA b/l, no w/r/r Cardiac: RRR Abdomen: soft, appropriately tender /ND, benign Extremity: no c/c/e Incision: dressing c/d/i. No evidence of hematoma/seroma/infection A/P: Chapin Costa is a 52 y.o. male patient s/p above procedure 1. Pain- controlled by POT FILLER + IV tylenol+ lido patches 2. Nausea- denies 3. Specific c/o- none 4. Volume status- Urine output adequate, continue with IVF, will monitor 5. DVT prophylaxis- SCDs 6. Diet:NPO diet (Give Meds) 7. Requested Imaging: KUB for NGT position 8. Disposition- Floor status 9. NGT to [facility] 10. Keep augustine - AUOP Belem Kay MD Acute Care Surgery Pager [phone] * Rhoda Gorman RN - 07/03/2023 8:39 [...] Yadav MD - 07/03/2023 7:00 AM EDT [facility] Acute Care Surgery Inpatient Progress Note Patient: Chapin Costa : 1970 Room: [address] [place] [address]- Admit date: 07/02/2023 Attending: Reuben Thibodeaux MD [...] Intravenous BID acetaminophen 1,000 mg Intravenous Q6H DMAIEN heparin (porcine) 5,000 Units Subcutaneous Q8H DAMIEN [...] 07/02/2023 3:43 PM) Result Value WORKSTATION ID [id number] Narrative EXAMINATION: XR SHUNT SERIES CLINICAL HISTORY: [...] who have questions please contact the health cardiac care unit nurse that requested your imaging first. Electronically signed by: Emerita Bernstein MD, [facility] ([phone]), at 07/02/2023 3:[address] Head wo Contrast (Generic) (Exam End: 07/02/2023 3:49 PM) Result Value WORKSTATION ID [id number] Narrative EXAMINATION: CT HEAD WO CONTRAST (GENERIC) CLINICAL HISTORY: recurrent epigastric abdominal pain and emesis in patient with LOADER MAGAZINE GRINDER shunt, Pt with PMH of congenital hydrocephalus [...] who have questions please contact the health cardiac care unit nurse that requested your imaging first. Electronically signed by: Jackson Jules DO, [facility] ([phone]), at 07/02/2023 3:[address] Abdomen & Pelvis w Contrast (Exam End: 07/02/2023 3:49 PM) Result Value WORKSTATION ID [id number] Narrative EXAMINATION: CT ABDOMEN AND PELVIS W [...] who have questions please contact the health cardiac care unit nurse that requested your imaging first. Electronically signed by: Cl Graham MD, [facility] ([phone]), at 07/02/2023 4:15 PM A/P: Chapin Costa is a 52 y.o. male who underwent LOADER MAGAZINE GRINDER shunt externalization, post-op course was complicated by [...] Inpatient Isac Yadav MD 07/03/2023 Service Pager: [phone] documented in this encounter H&P Notes * John Clements MD - 07/02/2023 5:52 PM EDT [facility] Department of General Surgery H&P Note History [...] IR All Drainage Procedures Bentley Arceo MD [facility] INTER[facility] RAD PRO ALVEOLOPLASTY W EXTRACTIONS, 4 OR MORE TEETH, PER QUADRANT N/A 10/18/2020 ALVEOPLASTY,IN CONJUNCTION WITH EXTRACTIONS,PER QUADRANT,ENT (WRVU 4.06) performed by Shan Rivero MD at [facility] OSC PRO EXTRACTION, ERUPTED TOOTH OR EXPOSED ROOT N/A 10/18/2020 EXTRACTION, ERUPTED TOOTH OR EXPOSED ROOT (WRVU 0.62) performed by Shan Rivero MD at [facility] OSC PRO IMPACT TOOTH REM BONY W/COMP N/A 10/18/2020 SURGICAL EXTRACTIONS, REMOVAL OF IMPACTED TOOTH, COMPLETELY BONY WITH UNUSUAL SURGICAL COMPLICATIONS (WRVU 2.91) performed by Shan Rivero MD at [facility] OSC PRO IMPACT TOOTH REMOV COMP BONY N/A 10/18/2020 SURGICAL EXTRACTIONS, REMOVAL OF IMPACTED TOOTH, COMPLETELY BONY (WRVU 1.93) performed by Shan Rivero MD at [facility] PRO REMOVAL ERUPTED TOOTH WITH ELEVATION OF MUCOPERIOSTEAL FLAP Bilateral 10/18/2020 SURGICAL EXTRACTIONS REQUIRING ELEVATION OF MUCOPERIOSTEAL FLAP AND REMOVAL OF BONE OR SECTION OF TOOTH (WRVU 1.09) performed by Shan Rivero MD at [facility] PRO REMOVAL, COMPLETE CSF SHUNT, W/O REPLACE Right 06/20/2023 @REMOVAL OF COMPLETE CSF SHUNT, W/O REPLACEMENT (WRVU 7.38) performed [facility] REPLACEMENT/REVISION, CSF SHUNT Right 06/09/2023 REVISION OR REPLACEMENT CSF SHUNT (WRVU 11.43) performed by Rhoda Jimenez MD at [facility] MA[facility] OR PRO REPLACEMENT/REVISION, CSF SHUNT Right 06/29/2023 REVISION OR REPLACEMENT CSF SHUNT (WRVU 11.43) performed by Rhoda Jimenez MD at [facility] CSI PRO UNLISTED PROCEDURE NERVOUS SYSTEM Right 05/24/2022 EXPLORATION VENTRICULO-PERITONEAL SHUNT (WRVU 25.48) performed by Rhoda Jimenez MD at [facility] MAIN OR SHOULDER SURGERY ULNAR TUNNEL [...] 07/02/2023 3:43 PM) Result Value WORKSTATION ID [id number] Impression Proximal shunt catheter tubing is well [...] who have questions please contact the health cardiac care unit nurse that requested your imaging first. Electronically signed by: Emerita Bernstein MD, [facility] ([phone]), at 07/02/2023 3:[address] Head wo Contrast (Generic) (Exam End: 07/02/2023 3:49 PM) Result Value WORKSTATION ID [id number] Impression Stable brain CT with attention to ventricular morphology. No acute findings. Thank you for letting us participate in the care of this patient. If you are a health care provider and have any questions regarding this report, please contact the number below. For patients who have questions please contact the health cardiac care unit nurse that requested your imaging first. Electronically signed by: Jackson Julse DO, [facility] ([phone]), at 07/02/2023 3:[address] Abdomen & Pelvis w Contrast (Exam End: 07/02/2023 3:49 PM) Result Value WORKSTATION ID [id number] Impression 1. Increased dilation of a segment [...] who have questions please contact the health cardiac care unit nurse that requested your imaging first. Electronically signed by: Cl Graham MD, [facility] ([phone]), at 07/02/2023 4:15 PM Impression: Chapin Costa is a 52 y.o. [...] John Clements MD General Surgery Consult Pager [phone] Associated attestation - Reuben Thibodeaux MD - 07/03/2023 6:47 AM EDT I have seen the patient in person and reviewed the above history and I agree with the details as written. The assessment and plan were formulated in discussion with me and I agree with them as documented. Pt recently underwent LOADER MAGAZINE GRINDER shunt externalization, post-op course was complicated by [...] found to have a fracture of his LOADER MAGAZINE GRINDER shunt catheter in the distal abdominal wall. He was hospitalized 06/07-06/10/2023 and underwent revision of his LOADER MAGAZINE GRINDER shunt, which was repaired by splicing with a metal connector. He represented to the emergency department on 06/15 with progressive headache and abdominal pain, and was found to have distal discontinuity of his shunt and WBC of 18. CT abdomen pelvis revealed multiple abdominal fluid collections, and he was admitted to neurosurgery service. On 06/19, he underwentoperation to remove distal portion of the LOADER MAGAZINE GRINDER shunt, with cultures obtained. Cultures grew E. [...] this morning. He has not tried any aurl-znz-aswiddv medications, as he would not be able [...] src: Temporal SpO2: 96 % O2 Device: O2 Flow Rate (L/min): n/a Physical Exam [...] who have questions please contact the health cardiac care unit nurse that requested your imaging first. Electronically signed by: Jackson Jules DO, [facility] ([phone]), at 07/02/2023 3:[address] Abdomen & Pelvis w Contrast Final Result [...] who have questions please contact the health cardiac care unit nurse that requested your imaging first. Electronically signed by: Cl Graham MD, [facility] ([phone]), at 07/02/2023 4:15 PM XR Shunt Series Final Result Proximal shunt catheter [...] who have questions please contact the health cardiac care unit nurse that requested your imaging first. Electronically signed by: Emerita Bernstein MD, [facility] ([phone]), at 07/02/2023 3:54 PM XR Abdomen Flat [...] the patient. Bernice An MD Resident 07/02/23 [id number] Associated attestation - Aria Nuñez MD - [...] with congenital hydrocephalus, recently hospitalized twice for LOADER MAGAZINE GRINDER shunt revision June 07-. Shunt had fractured [...] in agreement with plan. Brenda Beckford RN-, [facility] Surgery Nurse Digital Proofing And Platemaker [phone] , Pager [phone] * Plan of Care - Yessenia Candelario [...] PRN, see MAR for medications given. Patient POT FILLER pump and NG tube discontinued. Patient ambulating. Incision intact and open to air. No further concerns of present. LBM: 07/07/2023 Plan of care ongoing. PLAN MOVING FORWARD: Pain control Monitor incision site Patient-specific fall risk factors per assessment: [current deficits]: recent procedure, POT FILLER, continuous IVF, hospital environment Assistance [level of assistance required for transfers and ambulation]: x1 Supervision [direct monitoring required during toileting and ADLs]: eyes on Surveillance [continuous indirect monitoring]: Masimo, Purposeful Rounding, Nurse Knowledge Exchange Problem: Adult [...] PRN, see MAR for medications given. Patient POT FILLER pump and NG rube were discontinued. Oob to chair. Incision intact. No further concerns of present. Plan of care ongoing. PLAN MOVING FORWARD: OOB/ mobilize Pain control Monitor incision site Patient-specific fall risk factors per assessment: [current deficits]: recent procedure, POT FILLER, continuous IVF, hospital environment Assistance [level of assistance required for transfers and ambulation]: x1 Supervision [direct monitoring required during toileting and ADLs]: eyes on Surveillance [continuous indirect monitoring]: Heidi Purposeful Rounding, Nurse Knowledge Exchange Problem: Adult [...] Barriers to discharge: None Plan going forward: POT FILLER continues, isabella to be removed 5-22 to 5-, NGT gravity trial today and get patient OOB. Care Management will continue to follow and assist with discharge planning and coordination of care as indicated. Anticipated Date of Discharge: 07/07/2023 Fatou TOSCANO RN * Plan of Care - Dortoa Martin RN - 07/06/2023 7:42 AM EDT OUTCOME EVALUATION NOTE: OUTCOME SUMMARY: Pain well controlled only with scheduled medication and without POT FILLER. Pt did not use POT FILLER throughout the shift. Dressing on midline has [...] fall risk factors per assessment: [current deficits]: POT FILLER, lines and tubes, unfamiliar environment Assistance [level of assistance required for transfers and ambulation]: No out of bed in this shift Supervision [direct monitoring required during toileting and ADLs]: Eyes on Surveillance [continuous indirect monitoring]: Masimo, call shell within reach, room by nurse station, purposeful [...] SUMMARY: Oob to chair. Encouraged to use POT FILLER for pain control. Incision has small but stable amount of drieddrainage. Tolerated NGT clamp trial PLAN MOVING FORWARD: NGT care OOB/ mobilize Pain control Monitor incision site INDIVIDUALIZED FALL PREVENTION INTERVENTIONS: Patient-specific fall risk factors per assessment: [current deficits]: recent procedure, POT FILLER, continuous IVF, hospital environment Assistance [level of [...] distended, midline dressing intact. Pain managed with POT FILLER. Denies chest pain/discomfort, N/V numbness/tingling, SOB. NGT [...] NOTE: OUTCOME SUMMARY: Patient encouraged to use POT FILLER to control Pain. Pain controlled at 4-5 this shift. Midline CDI. No concerns at this time. PLAN MOVING FORWARD: Pain control Mobilize POT FILLER Monitor Bms/ passing gas INDIVIDUALIZED FALL PREVENTION INTERVENTIONS: Patient-specific fall risk factors per assessment: [current deficits]: hospital environment, recentprocedure, POT FILLER, Assistance [level of assistance required for transfers and ambulation]: x2 Supervision [direct monitoring required during toileting and ADLs]: eyes on Surveillance [continuous indirect monitoring]: rounding, masimo Patient-specific fall prevention interventions for sensory deficits provided, if applicable: [X] N/A * Brief Op Note - Arely Murray MD - 07/03/2023 8:04 PM EDT Brief Operative Note Patient Name: Chapin Costa : [id number] MR#: [id number] Case Date: 07/03/2023 Surgeon: Surgeon(s) and Role: [...] In the past 12 months has the [employer], gas, oil, or water [employer] threatened to shut off services in your [...] comments) (CPAP machine) Home Address confirmed as: [address] [place] [address] [address] [facility] [address] Social & Family Supports: All names listed below confirmed with patient as current and correct Extended Emergency Contact Information Primary Emergency Contact: Tracy Fregoso Address: [address] [place], [place] [id number] [place] [address] Mobile Relation: Guardianship Secondary Emergency Contact: RICH FREGOSO Address: [address] [place], [place] [address] [place] [address] Mobile Relation: Step parent Current Care Provided [...] Yes ; Prescription Coverage: Yes Preferred Pharmacy: [facility] [address] [facility] [address] [facility] [address] Status: Patient is a : Primary Care Provider confirmed: MARVA Gordon [phone] Patient/Caregiver Goals of Treatment: Potential Needs for Transition of Care: other (see comments) (pending hospital course, in agreementto resume services with [facility] if indicated) Agency Referrals: tbd Transportation: no concerns Transportation Anticipated: family or friend will provide Concerns to be Addressed: discharge planning Assessment: Patient is admitted to [facility] service for management of SBO. Plan: OR today for diagnostic lap, lysis of adhesions, possible bowel resection, discharge needs pending hospital course. A member of the Care Management team will continue to monitor progress, follow for continuity of care and assist with transition of care planning. Brenda Beckford RN-[facility] Surgery Nurse Digital Proofing And Platemaker [phone] , Pager [phone] * Op Note - Arely Murray MD - 07/03/2023 3:11 PM EDT [facility] [place] Patient Name: Chapin Costa : [id number] MR#: [id number] Case Date: 07/03/2023 Surgeon: Surgeon(s) and Role: [...] his prior abdominal surgical history and numerous LOADER MAGAZINE GRINDER shunts, there were multiple layers of adhesions not only between the various loops of small bowel but also between multiple peritonealized layers which did not readily reveal the [place] peritoneum. At certain points, patches of peritoneum [...] MD 07/06/2023 * Consult Note - Mel Simmons, [facility] - 07/02/2023 9:51 PM EDT TelePharmacy Home Medication List Update for Medication Reconciliation 07/02/23 9:51 PM Chapin Martion 1970 Allergies Allergen Reactions Latex Other reaction(s): [...] Bautista MD - 07/02/2023 3:21 PM EDT [facility] NEUROSURGERY CONSULT NOTE ID: Chapin Costa, 52 [...] VFF, FS, TML No pronator drift RUE: 5/ LUE: 5/5 RLE: 5/5 LLE: 06/27 [id number] No clonus Downgoing toes R postauricular dressing taken down, incision well approximated with nylons, no leakage, previous externalization incision and pleural incision dressings dry LOADER MAGAZINE GRINDER valve pumps and refills briskly LABS: CBC: [...] Department Center 07/15/2023 1:20 PM NURSE, NEUROSURGERY [id number] 07/15/2023 2:30 PM Valdo Awan MD [facility] [place] [id number] [facility] 08/13/2023 11:40 AM Cl Atkins PA [facility] [id number] [facility] Neurosurgery Pager: [phone] Lisa Bautista MD 07/02/2023 3:22 PM Clinical [...] IR All Drainage Procedures Bentley Arceo MD [facility] RAD PRO ALVEOLOPLASTY W EXTRACTIONS, 4 OR MORE TEETH, PER QUADRANT N/A 10/18/2020 ALVEOPLASTY,IN CONJUNCTION WITH EXTRACTIONS,PER QUADRANT,ENT (WRVU 4.06) performed by Shan Rivero MD at [facility] OSC PRO EXTRACTION, ERUPTED TOOTH OR EXPOSED ROOT N/A 10/18/2020 EXTRACTION, ERUPTED TOOTH OR EXPOSED ROOT (WRVU 0.62) performed by Shan Rivero MD at [facility] OSC PRO IMPACT TOOTH REM BONY W/COMP N/A 10/18/2020 SURGICAL EXTRACTIONS, REMOVAL OF IMPACTED TOOTH, COMPLETELY BONY WITH UNUSUAL SURGICAL COMPLICATIONS (WRVU 2.91) performed by Shan Rivero MD at [facility] PRO IMPACT TOOTH REMOV COMP BONY N/A 10/18/2020 SURGICAL EXTRACTIONS, REMOVAL OF IMPACTED TOOTH, COMPLETELY BONY (WRVU 1.93) performed by Shan Rivero MD at [facility] PRO REMOVAL ERUPTED TOOTH WITH ELEVATION OF MUCOPERIOSTEAL FLAP Bilateral 10/18/2020 SURGICAL EXTRACTIONS REQUIRING ELEVATION OF MUCOPERIOSTEAL FLAP AND REMOVAL OF BONE OR SECTION OF TOOTH (WRVU 1.09) performed by Shan Rivero MD at [facility] PRO REMOVAL, COMPLETE CSF SHUNT, W/O REPLACE Right 06/20/2023 @REMOVAL OF COMPLETE CSF SHUNT, W/O REPLACEMENT (WRVU 7.38) performed [facility] REPLACEMENT/REVISION, CSF SHUNT Right 06/09/2023 REVISION OR REPLACEMENT CSF SHUNT (WRVU 11.43) performed by Rhoda Jimenez MD at [facility] MA[facility] OR PRO REPLACEMENT/REVISION, CSF SHUNT Right 06/29/2023 REVISION OR REPLACEMENT CSF SHUNT (WRVU 11.43) performed by Rhoda Jimenez MD at [facility] CSI PRO UNLISTED PROCEDURE NERVOUS SYSTEM Right 05/24/2022 EXPLORATION VENTRICULO-PERITONEAL SHUNT (WRVU 25.48) performed by Rhoda Jimenez MD at [facility] MAIN OR SHOULDER SURGERY ULNAR TUNNEL [...] PM EDT Resect Small Intest, Singl Resec/Anas ([id number]) 07/03/2023 2:35 PM EDT SBO ABORH RECHECK STATUS Routine 07/03/2023 2:46 AM EDT HEMOGRAM Routine 07/03/2023 2:46 AM EDT DIFFERENTIAL, AUTOMATED Routine 07/03/2023 2:46 AM EDT CBC (WITH DIFF) Routine 07/03/2023 2:46 AM EDT TYPE AND SCREEN ([facility]/DULCE MARIA) Routine 07/03/2023 2:46 AM EDT PHOSPHORUS [...] Absolute 7.56(H) 1.70 - 6.10 x10(3)/mc L [facility] Lymph % 20.0 % [facility] Lymphocytes Abs 2.2 0.9 - 3.2 x10(3)/mc L [facility] Monocyte % 5.9 % [facility] Monocyte Abs 0.6 0.3 - 0.9 x10(3)/mc L [facility] Eos % 4.2 % [facility] Eosinophils Abs 0.5(H) 0.0 - 0.4 x10(3)/mc L [facility] Basophil % 0.8 % [facility] Baso Absolute 0.1 0.0 - 0.1 x10(3)/mc L [facility] Immature Gran % 0.50 % [facility] Comment: Immature granulocytes(IG's)percentage and absolute count will include metamyelocytes, myelocytes, and promyelocytes. Blood smears from CBCs yielding IG's will be scanned manually for concordance. If this scan disagrees with the automated IG or if promyelocytes are noted, a manual differential will be performed. Immature Gran Absolute 0.05(H) 0.00 - 0.04 x10(3)/ L [facility] Blood 07/08/2023 3:38 AM EDT 07/08/2023 3:58 AM EDT Narrative Resulting Agency Comment Spec In Lab Delgado Denis MD HEMATOLOGY ORDERABLE S [facility] [place] [address] * (ABNORMAL) Hemogram (07/08/2023 3:38 AM EDT) White Blood Cell 11.0(H) 4.0 - 9.5 x10(3)/[facility] Red Blood Cell 4.00(L) 4.58 - 5.54 x10(6)/[facility] Hemoglobin 11.8(L) 13.7 - 16.5 g/dL [facility] Hematocrit 35.7(L) 40.5 - 48.5 % [facility] Mean Cell Volume 89.3 82.9 - 93.1 [facility] Mean Cell Hemoglobin 29.5 27.5 - 32.1 pg [facility] Mean Cell Hemoglobin Concentration 33.1 32.0 - 35.7 g/dL [facility] Platelet 279 145 - 357 x10(3)/[facility] RDW Standard Deviation 44.3 36.0 - 45.0 [facility] RDW coefficient of variation 13.4 11.4 - 13.8 % [facility] Mean Platelet Volume 9.4 7.6 - 12.9 [facility] NRBC% auto 0.0 % [facility] NRBC Absolute 0.000 0.000 - 0.000 x10(3)/ L [facility] Blood 07/08/2023 3:38 AM EDT 07/08/2023 3:58 AM EDT Narrative Resulting Agency Comment Spec In Lab Delgado Denis MD HEMATOLOGY ORDERABLE S Performing Organization Address [facility] Co de Phone Number [facility] [place] [address] * Phosphorus (07/08/2023 3:38 AM EDT) Phosphorus 2.7 2.5 - 4.5 mg/dL [facility] Blood 07/08/2023 3:38 AM EDT 07/08/2023 3:58 AM EDT Narrative Resulting Agency Comment Spec In Lab Reuben Thibodeaux MD CHEMISTRY ORDERABLES Performing Organization Address [facility] de Phone Number [facility] [place] [address] * Magnesium (07/08/2023 3:38 AM EDT) Magnesium 0.86 0.69 - 1.07 mmol/L [facility] Blood 07/08/2023 3:38 AM EDT 07/08/2023 3:58 AM EDT Narrative Resulting Agency Comment Spec In Lab Reuben Thibodeaux MD CHEMISTRY ORDERABLES Performing Organization Address [facility] de Phone Number [facility] [place] [address] * (ABNORMAL) Basic Metabolic Panel (non-fasting) (07/08/2023 3:38 AM EDT) Glucose 116 65 - 199 mg/dL [facility] Comment:Diabetes: >=200 mg/d L plus symptoms Blood Urea Nitrogen 11 10 - 20 mg/dL [facility] Creatinine 0.86 0.80 - 1.50 mg/dL [facility] Sodium 138 135 - 145 mmol/L [facility] Potassium 3.7 3.5 - 5.0 mmol/L [facility] Comment: Please note: ??Patients with WBC >100,000 may have falsely elevated Potassium levels. ??For accurate Potassium quantification in these patients send serum separator tube (gold top) for subsequent determinations. ??Contact the Clinical Chemistry Laboratory if there are any questions. Chloride 108(H) 98 - 107 mmol/L [facility] Carbon Dioxide 21(L) 22 - 31 mmol/L [facility] Anion Gap 9 5 - 15 mmol/L [facility] Calcium 8.6 8.5 - 10.5 mg/dL [facility] Est Glomerular Filtration Rate 105 >=60 mL/min/1. 73 m?? [facility] Comment: This patient's estimated [...] In Lab Reuben Thibodeaux MD CHEMISTRY ORDERABLES [facility] [place] [address] * (ABNORMAL) Differential, Automated (07/07/2023 1:49 AM EDT) Neutrophil % 70.0 % [facility] Neutrophil Absolute 7.72(H) 1.70 - 6.10 x10(3)/mc L [facility] Lymph % 18.4 % [facility] Lymphocytes Abs 2.0 0.9 - 3.2 x10(3)/mc L [facility] Monocyte % 5.7 % [facility] Monocyte Abs 0.6 0.3 - 0.9 x10(3)/[facility] Eos % 4.8 % [facility] Eosinophils Abs 0.5(H) 0.0 - 0.4 x10(3)/[facility] Basophil % 0.6 % [facility] Baso Absolute 0.1 0.0 - 0.1 x10(3)/[facility] Immature Gran % 0.50 % [facility] Comment: Immature granulocytes(IG's)percentage and absolute count will include metamyelocytes, myelocytes, and promyelocytes. Blood smears from CBCs yielding IG's will be scanned manually for concordance. If this scan disagrees with the automated IG or if promyelocytes are noted, a manual differential will be performed. Immature Gran Absolute 0.05(H) 0.00 - 0.04 x10(3)/[facility] Blood 07/07/2023 1:49 AM EDT 07/07/2023 2:13 AM EDT Narrative Resulting Agency Comment Spec In Lab Delgado Denis MD HEMATOLOGY ORDERABLE S Performing Organization Address City/State/[facility] Co de Phone Number [facility] [place] [address] * (ABNORMAL) Hemogram (07/07/2023 1:49 AM EDT) White Blood Cell 11.0(H) 4.0 - 9.5 x10(3)/[facility] Red Blood Cell 3.81(L) 4.58 - 5.54 x10(6)/ L [facility] Hemoglobin 11.3(L) 13.7 - 16.5 g/dL [facility] Hematocrit 34.9(L) 40.5 - 48.5 % [facility] Mean Cell Volume 91.6 82.9 - 93.1 fL [facility] Mean Cell Hemoglobin 29.7 27.5 - 32.1 pg [facility] Mean Cell Hemoglobin Concentration 32.4 32.0 - 35.7 g/dL [facility] Platelet 255 145 - 357 x10(3)/mc L [facility] RDW Standard Deviation 47.1(H) 36.0 - 45.0 fL [facility] RDW coefficient of variation 13.8 11.4 - 13.8 % [facility] Mean Platelet Volume 9.4 7.6 - 12.9 fL [facility] NRBC% auto 0.0 % [facility] NRBC Absolute 0.000 0.000 - 0.000 x10(3)/mc L [facility] Blood 07/07/2023 1:49 AM EDT 07/07/2023 2:13 AM EDT Narrative Resulting Agency Comment Spec In Lab Delgado Denis MD HEMATOLOGY ORDERABLE S Performing Organization Address City/[facility]/ZIP Co de Phone Number [facility] [place] [phone] * Phosphorus (07/07/2023 1:49 AM EDT) Phosphorus 3.3 2.5 - 4.5 mg/dL [facility] Blood 07/07/2023 1:49 AM EDT 07/07/2023 2:13 AM EDT Narrative Resulting Agency Comment Spec In Lab Reuben Thibodeaux MD CHEMISTRY ORDERABLES Performing Organization Address City/[facility]/ZIP Co de Phone Number [facility] [place] [address] * Magnesium (07/07/2023 1:49 AM EDT) Magnesium 0.86 0.69 - 1.07 mmol/L [facility] Blood 07/07/2023 1:49 AM EDT 07/07/2023 2:13 AM EDT Narrative Resulting Agency Comment Spec In Lab Reuben Thibodeaux MD CHEMISTRY ORDERABLES [facility] [place] [address] * (ABNORMAL) Basic Metabolic Panel (non-fasting) (07/07/2023 1:49 AM EDT) Glucose 102 65 - 199 mg/dL [facility] Comment:Diabetes: >=200 mg/d L plus symptoms Blood Urea Nitrogen 12 10 - 20 mg/dL [facility] Creatinine 0.92 0.80 - 1.50 mg/dL [facility] Sodium 141 135 - 145 mmol/L [facility] Potassium 3.7 3.5 - 5.0 mmol/L [facility] Comment: Please note: ??Patients with WBC >100,000 may have falsely elevated Potassium levels. ??For accurate Potassium quantification in these patients send serum separator tube (gold top) for subsequent determinations. ??Contact the Clinical Chemistry Laboratory if there are any questions. Chloride 108(H) 98 - 107 mmol/L [facility] Carbon Dioxide 21(L) 22 - 31 mmol/L [facility] Anion Gap 12 5 - 15 mmol/L [facility] Calcium 8.6 8.5 - 10.5 mg/dL [facility] Est Glomerular Filtration Rate 101 >=60 mL/min/1. 73 m?? [facility] Comment: This patient's estimated [...] In Lab Reuben Thibodeaux MD CHEMISTRY ORDERABLES [facility] [place] [address] * POCT Glucose (07/06/2023 7:58 PM EDT) [facility] Glucose, POC 95 65 - 199 mg/dL [facility] Comment: Supplemental ranges: <140 mg/dL before meals <180 mg/dL all other times of the day Blood 07/06/2023 7:58 PM EDT 07/06/2023 7:58 PM EDT Reuben Thibodeaux MD POINT OF CARE TEST O RDERABLES Performing Organization Address [facility]/ZIP Co de Phone Number [facility] [place] [address] * (ABNORMAL) Differential, Automated (07/06/2023 3:53 AM EDT) [facility] Neutrophil % 70.4 % [facility] Neutrophil Absolute 8.72(H) 1.70 - 6.10 x10(3)/mc L [facility] Lymph % 18.6 % [facility] Lymphocytes Abs 2.3 0.9 - 3.2 x10(3)/mc L [facility] Monocyte % 5.4 % [facility] Monocyte Abs 0.7 0.3 - 0.9 x10(3)/mc L [facility] Eos % 4.7 % [facility] Eosinophils Abs 0.6(H) 0.0 - 0.4 x10(3)/mc L [facility] Basophil % 0.5 % [facility] Baso Absolute 0.1 0.0 - 0.1 x10(3)/mc L [facility] Immature Gran % 0.40 % [facility] Comment: Immature granulocytes(IG's)percentage and absolute count will include metamyelocytes, myelocytes, and promyelocytes. Blood smears from CBCs yielding IG's will be scanned manually for concordance. If this scan disagrees with the automated IG or if promyelocytes are noted, a manual differential will be performed. Immature Gran Absolute 0.05(H) 0.00 - 0.04 x10(3)/mc L [facility] Blood 07/06/2023 3:53 AM EDT 07/06/2023 4:05 AM EDT Narrative Resulting Agency Comment Spec In Lab Delgado Denis MD HEMATOLOGY ORDERABLE S [facility] [place] [address] * (ABNORMAL) Hemogram (07/06/2023 3:53 AM EDT) White Blood Cell 12.4(H) 4.0 - 9.5 x10(3)/mc L [facility] Red Blood Cell 3.88(L) 4.58 - 5.54 x10(6)/mc L [facility] Hemoglobin 11.6(L) 13.7 - 16.5 g/dL [facility] Hematocrit 34.6(L) 40.5 - 48.5 % [facility] Mean Cell Volume 89.2 82.9 - 93.1 fL [facility] Mean Cell Hemoglobin 29.9 27.5 - 32.1 pg [facility] Mean Cell Hemoglobin Concentration 33.5 32.0 - 35.7 g/dL [facility] Platelet 216 145 - 357 x10(3)/mc L [facility] RDW Standard Deviation 44.2 36.0 - 45.0 fL [facility] RDW coefficient of variation 13.6 11.4 - 13.8 % [facility] Mean Platelet Volume 9.1 7.6 - 12.9 fL [facility] NRBC% auto 0.0 % [facility] NRBC Absolute 0.000 0.000 - 0.000 x10(3)/mc L [facility] Blood 07/06/2023 3:53 AM EDT 07/06/2023 4:05 AM EDT Narrative Resulting Agency Comment Spec In Lab Delgado Denis MD HEMATOLOGY ORDERABLE S Performing Organization Address [facility]/ZIP Co de Phone Number [facility] [place] [address] * (ABNORMAL) Phosphorus (07/06/2023 3:53 AM EDT) Phosphorus 2.0(L) 2.5 - 4.5 mg/dL [facility] Blood 07/06/2023 3:53 AM EDT 07/06/2023 4:05 AM EDT Narrative Resulting Agency Comment Spec In Lab Reuben Thibodeaux MD CHEMISTRY ORDERABLES Performing Organization Address [facility] Co de Phone Number [facility] [place] [address] * Magnesium (07/06/2023 3:53 AM EDT) Magnesium 0.82 0.69 - 1.07 mmol/L [facility] Blood 07/06/2023 3:53 AM EDT 07/06/2023 4:05 AM EDT Narrative Resulting Agency Comment Spec In Lab Reuben Thibodeaux MD CHEMISTRY ORDERABLES Performing Organization Address [facility] Co de Phone Number [facility] [place] [address] * Basic Metabolic Panel (non-fasting) (07/06/2023 3:53 AM EDT) Glucose 91 65 - 199 mg/dL [facility] Comment:Diabetes: >=200 mg/d L plus symptoms Blood Urea Nitrogen 11 10 - 20 mg/dL [facility] Creatinine 0.89 0.80 - 1.50 mg/dL [facility] Sodium 138 135 - 145 mmol/L [facility] Potassium 3.7 3.5 - 5.0 mmol/L [facility] Comment: Please note: ??Patients with WBC >100,000 may have falsely elevated Potassium levels. ??For accurate Potassium quantification in these patients send serum separator tube (gold top) for subsequent determinations. ??Contact the Clinical Chemistry Laboratory if there are any questions. Chloride 106 98 - 107 mmol/L [facility] Carbon Dioxide 22 22 - 31 mmol/L [facility] Anion Gap 10 5 - 15 mmol/L [facility] Calcium 8.5 8.5 - 10.5 mg/dL [facility] Est Glomerular Filtration Rate 104 >=60 mL/min/1. 73 m?? [facility] Comment: This patient's estimated [...] In Lab Reuben Thibodeaux MD CHEMISTRY ORDERABLES [facility] [place] [address] * (ABNORMAL) Differential, Automated (07/05/2023 3:36 AM EDT) Neutrophil % 73.8 % [facility] Neutrophil Absolute 10.85(H) 1.70 - 6.10 x10(3)/mc L [facility] Lymph % 16.6 % [facility] Lymphocytes Abs 2.4 0.9 - 3.2 x10(3)/ L [facility] Monocyte % 5.8 % [facility] Monocyte Abs 0.9 0.3 - 0.9 x10(3)/[facility] Eos % 2.8 % [facility] Eosinophils Abs 0.4 0.0 - 0.4 x10(3)/[facility] Basophil % 0.5 % [facility] Baso Absolute 0.1 0.0 - 0.1 x10(3)/[facility] Immature Gran % 0.50 % [facility] Comment: Immature granulocytes(IG's)percentage and absolute count will include metamyelocytes, myelocytes, and promyelocytes. Blood smears from CBCs yielding IG's will be scanned manually for concordance. If this scan disagrees with the automated IG or if promyelocytes are noted, a manual differential will be performed. Immature Gran Absolute 0.07(H) 0.00 - 0.04 x10(3)/[facility] Blood 07/05/2023 3:36 AM EDT 07/05/2023 4:10 AM EDT Narrative Resulting Agency Comment Spec In Lab Delgado Denis MD HEMATOLOGY ORDERABLE S [facility] [place] [address] * (ABNORMAL) Hemogram (07/05/2023 3:36 AM EDT) White Blood Cell 14.7(H) 4.0 - 9.5 x10(3)/[facility] Red Blood Cell 4.58 4.58 - 5.54 x10(6)/[facility] Hemoglobin 13.6(L) 13.7 - 16.5 g/dL [facility] Hematocrit 41.0 40.5 - 48.5 % [facility] Mean Cell Volume 89.5 82.9 - 93.1 fL [facility] Mean Cell Hemoglobin 29.7 27.5 - 32.1 pg [facility] Mean Cell Hemoglobin Concentration 33.2 32.0 - 35.7 g/dL [facility] Platelet 260 145 - 357 x10(3)/mc L [facility] RDW Standard Deviation 45.8(H) 36.0 - 45.0 fL [facility] RDW coefficient of variation 13.9(H) 11.4 - 13.8 % [facility] Mean Platelet Volume 9.6 7.6 - 12.9 fL [facility] NRBC% auto 0.0 % [facility] NRBC Absolute 0.000 0.000 - 0.000 x10(3)/mc L [facility] Blood 07/05/2023 3:36 AM EDT 07/05/2023 4:10 AM EDT Narrative Resulting Agency Comment Spec In Lab Delgado Denis MD HEMATOLOGY ORDERABLE S [facility] [place] [address] * (ABNORMAL) Phosphorus (07/05/2023 3:36 AM EDT) Phosphorus 1.7(L) 2.5 - 4.5 mg/dL [facility] Blood 07/05/2023 3:36 AM EDT 07/05/2023 4:10 AM EDT Narrative Resulting Agency Comment Spec In Lab Reuben Thibodeaux MD CHEMISTRY ORDERABLES [facility] [place] [address] * Magnesium (07/05/2023 3:36 AM EDT) Magnesium 0.83 0.69 - 1.07 mmol/L [facility] Blood 07/05/2023 3:36 AM EDT 07/05/2023 4:10 AM EDT Narrative Resulting Agency Comment Spec In Lab Reuben Thibodeaux MD CHEMISTRY ORDERABLES [facility] [place] [address] * (ABNORMAL) Basic Metabolic Panel (non-fasting) (07/05/2023 3:36 AM EDT) Glucose 110 65 - 199 mg/dL [facility] Comment:Diabetes: >=200 mg/d L plus symptoms Blood Urea Nitrogen 10 10 - 20 mg/dL [facility] Creatinine 1.01 0.80 - 1.50 mg/dL [facility] Sodium 138 135 - 145 mmol/L [facility] Potassium 3.7 3.5 - 5.0 mmol/L [facility] Comment: Please note: ??Patients with WBC >100,000 may have falsely elevated Potassium levels. ??For accurate Potassium quantification in these patients send serum separator tube (gold top) for subsequent determinations. ??Contact the Clinical Chemistry Laboratory if there are any questions. Chloride 105 98 - 107 mmol/L [facility] Carbon Dioxide 22 22 - 31 mmol/L [facility] Anion Gap 11 5 - 15 mmol/L [facility] Calcium 8.4(L) 8.5 - 10.5 mg/dL [facility] Est Glomerular Filtration Rate 91 >=60 mL/min/1. 73 m?? [facility] Comment: This patient's estimated [...] In Lab Reuben Thibodeaux MD CHEMISTRY ORDERABLES [facility] [place] [address] * (ABNORMAL) Differential, Automated (07/04/2023 2:01 AM EDT) Neutrophil % 86.8 % [facility] Neutrophil Absolute 16.11(H) 1.70 - 6.10 x10(3)/mc L [facility] Lymph % 6.6 % [facility] Lymphocytes Abs 1.2 0.9 - 3.2 x10(3)/mc L [facility] Monocyte % 5.7 % [facility] Monocyte Abs 1.1(H) 0.3 - 0.9 x10(3)/mc L [facility] Eos % 0.3 % [facility] Eosinophils Abs 0.1 0.0 - 0.4 x10(3)/ L [facility] Basophil % 0.3 % [facility] Baso Absolute 0.1 0.0 - 0.1 x10(3)/mc L [facility] Immature Gran % 0.30 % [facility] Comment: Immature granulocytes(IG's)percentage and absolute count will include metamyelocytes, myelocytes, and promyelocytes. Blood smears from CBCs yielding IG's will be scanned manually for concordance. If this scan disagrees with the automated IG or if promyelocytes are noted, a manual differential will be performed. Immature Gran Absolute 0.06(H) 0.00 - 0.04 x10(3)/mc L [facility] Blood 07/04/2023 2:01 AM EDT 07/04/2023 2:32 AM EDT Narrative Resulting Agency Comment Spec In Lab Delgado Denis MD HEMATOLOGY ORDERABLE S [facility] [place] [address] * (ABNORMAL) Hemogram (07/04/2023 2:01 AM EDT) White Blood Cell 18.6(H) 4.0 - 9.5 x10(3)/mc L [facility] Red Blood Cell 5.48 4.58 - 5.54 x10(6)/mc L [facility] Hemoglobin 16.1 13.7 - 16.5 g/dL [facility] Hematocrit 47.4 40.5 - 48.5 % [facility] Mean Cell Volume 86.5 82.9 - 93.1 fL [facility] Mean Cell Hemoglobin 29.4 27.5 - 32.1 pg [facility] Mean Cell Hemoglobin Concentration 34.0 32.0 - 35.7 g/dL [facility] Platelet 333 145 - 357 x10(3)/mc L [facility] RDW Standard Deviation 42.3 36.0 - 45.0 [facility] RDW coefficient of variation 13.4 11.4 - 13.8 % [facility] Mean Platelet Volume 9.3 7.6 - 12.9 fL [facility] NRBC% auto 0.0 % [facility] NRBC Absolute 0.000 0.000 - 0.000 x10(3)/mc L [facility] Blood 07/04/2023 2:01 AM EDT 07/04/2023 2:32 AM EDT Narrative Resulting Agency Comment Spec In Lab Delgado Denis MD HEMATOLOGY ORDERABLE S [facility] [place] [address] * Phosphorus (07/04/2023 2:01 AM EDT) Phosphorus 3.5 2.5 - 4.5 mg/dL [facility] Blood 07/04/2023 2:01 AM EDT 07/04/2023 2:32 AM EDT Narrative Resulting Agency Comment Spec In Lab Reuben Thibodeaux MD CHEMISTRY ORDERABLES Performing Organization Address [facility] Co de Phone Number [facility] [place] [address] * Magnesium (07/04/2023 2:01 AM EDT) Magnesium 0.78 0.69 - 1.07 mmol/L [facility] Blood 07/04/2023 2:01 AM EDT 07/04/2023 2:32 AM EDT Narrative Resulting Agency Comment Spec In Lab Reuben Thibodeaux MD CHEMISTRY ORDERABLES Performing Organization Address [facility] Co de Phone Number [facility] [place] [address] * (ABNORMAL) Basic Metabolic Panel (non-fasting) (07/04/2023 2:01 AM EDT) Glucose 146 65 - 199 mg/dL [facility] Comment:Diabetes: >=200 mg/d L plus symptoms Blood Urea Nitrogen 16 10 - 20 mg/dL [facility] Creatinine 1.04 0.80 - 1.50 mg/dL [facility] Sodium 135 135 - 145 mmol/L [facility] Potassium 4.0 3.5 - 5.0 mmol/L [facility] Comment: Please note: ??Patients with WBC >100,000 may have falsely elevated Potassium levels. ??For accurate Potassium quantification in these patients send serum separator tube (gold top) for subsequent determinations. ??Contact the Clinical Chemistry Laboratory if there are any questions. Chloride 106 98 - 107 mmol/L [facility] Carbon Dioxide 20(L) 22 - 31 mmol/L [facility] Anion Gap 9 5 - 15 mmol/L [facility] Calcium 8.6 8.5 - 10.5 mg/dL [facility] Est Glomerular Filtration Rate 87 >=60 mL/min/1. 73 m?? [facility] Comment: This patient's estimated [...] In Lab Reuben Thibodeaux MD CHEMISTRY ORDERABLES [facility] [place] [phone] * XR Abdomen 1 view (Generic) (07/03/2023 9:00 PM EDT) Pathologist [employer] WORKSTATION ID [id number] DH RAD Anatomical Region Laterality Modality Abdomen N/A [...] who have questions please contact the health cardiac care unit nurse that requested your imaging first. ? Electronically signed by: Chapin Peacock MD, [facility] ([phone]), at 07/04/2023 12:40 AM Narrative 07/04/2023 12:40 AM EDT EXAMINATION: XR [...] patients who have questions please contactthe health cardiac care unit nurse that requested your imaging first. Electronically signed by: Chapin Peacock MD, [facility]([phone]), at 07/04/2023 12:40 AM Reuben Thibodeaux MD IMG DX ORDERABLES * (ABNORMAL) Differential, Automated (07/03/2023 8:44 PM EDT) Neutrophil % 87.5 % [facility] Neutrophil Absolute 15.46(H) 1.70 - 6.10 x10(3)/ L [facility] Lymph % 5.8 % [facility] Lymphocytes Abs 1.0 0.9 - 3.2 x10(3)/[facility] Monocyte % 6.1 % [facility] Monocyte Abs 1.1(H) 0.3 - 0.9 x10(3)/[facility] Eos % 0.1 % [facility] Eosinophils Abs 0.0 0.0 - 0.4 x10(3)/[facility] Basophil % 0.2 % [facility] Baso Absolute 0.0 0.0 - 0.1 x10(3)/[facility] Immature Gran % 0.30 % [facility] Comment: Immature granulocytes(IG's)percentage and absolute count will include metamyelocytes, myelocytes, and promyelocytes. Blood smears from CBCs yielding IG's will be scanned manually for concordance. If this scan disagrees with the automated IG or if promyelocytes are noted, a manual differential will be performed. Immature Gran Absolute 0.06(H) 0.00 - 0.04 x10(3)/[facility] Blood 07/03/2023 8:44 PM EDT 07/03/2023 8:51 PM EDT Narrative Resulting Agency Comment Spec In Lab Delgado Denis MD HEMATOLOGY ORDERABLE S [facility] [place] [address] * (ABNORMAL) Hemogram (07/03/2023 8:44 PM EDT) Pathologist [facility] White Blood Cell 17.7(H) 4.0 - 9.5 x10(3)/mc L [facility] Red Blood Cell 5.57(H) 4.58 - 5.54 x10(6)/mc L [facility] Hemoglobin 16.6(H) 13.7 - 16.5 g/dL [facility] Hematocrit 49.2(H) 40.5 - 48.5 % [facility] Mean Cell Volume 88.3 82.9 - 93.1 fL [facility] Mean Cell Hemoglobin 29.8 27.5 - 32.1 pg [facility] Mean Cell Hemoglobin Concentration 33.7 32.0 - 35.7 g/dL [facility] Platelet 358(H) 145 - 357 x10(3)/ L [facility] RDW Standard Deviation 42.9 36.0 - 45.0 [facility] RDW coefficient of variation 13.2 11.4 - 13.8 % [facility] Mean Platelet Volume 9.0 7.6 - 12.9 [facility] NRBC% auto 0.0 % [facility] NRBC Absolute 0.000 0.000 - 0.000 x10(3)/ L [facility] Blood 07/03/2023 8:44 PM EDT 07/03/2023 8:51 PM EDT Narrative Resulting Agency Comment Spec In Lab Delgado Denis MD HEMATOLOGY ORDERABLE S [facility] [place] [address] * (ABNORMAL) Basic Metabolic Panel (non-fasting) (07/03/2023 8:44 PM EDT) Glucose 181 65 - 199 mg/dL [facility] Comment:Diabetes: >=200 mg/d L plus symptoms Blood Urea Nitrogen 17 10 - 20 mg/dL [facility] LABORATORY Creatinine 1.05 0.80 - 1.50 mg/dL [facility] Sodium 135 135 - 145 mmol/L [facility] Potassium 3.7 3.5 - 5.0 mmol/L [facility] Comment: Please note: ??Patients with WBC >100,000 may have falsely elevated Potassium levels. ??For accurate Potassium quantification in these patients send serum separator tube (gold top) for subsequent determinations. ??Contact the Clinical Chemistry Laboratory if there are any questions. Chloride 104 98 - 107 mmol/L [facility] Carbon Dioxide 20(L) 22 - 31 mmol/L [facility] Anion Gap 11 5 - 15 mmol/L [facility] Calcium 8.6 8.5 - 10.5 mg/dL [facility] Est Glomerular Filtration Rate 86 >=60 mL/min/1. 73 m?? [facility] Comment: This patient's estimated [...] In Lab Reuben Thibodeaux MD CHEMISTRY ORDERABLES [facility] [place] [address] * Surgical Pathology Report (07/03/2023 7:23 PM EDT) Final Diagnosis [id number] ? Location: L3WD; 0311; B The signing pathologist has (i) examined the relevant preparation(s) for the specimen(s) and (ii) rendered or confirmed the diagnosis(es). . 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 - Margins appear viable. - Vegetable matter. Electronically signed by: ?Rishi LEE PhD, Mery Verified: ??07/13/2023 14:03 ??Pathologist Performed at: ??-[facility] [place], [place] [address] Cellophane Tester: Jayjay Covarrubias MD, AP, ??CLIA Certificate: [id number] SPECIMEN(S) SUBMITTED A - jejunum, excision (1) CLINICAL INFORMATION SBO SPECIMEN PROCESSING A - Labeled/Fixative: Jejunum, fresh. Resection Specimen: Intact, small bowel resection. Length/Diameter: 18.5 x 3.5 cm. External Architecture: Preserved. Serosa: [id number], glistening. Mucosa: Folded, no lesions identified. Wall: 0.4 cm thick. Sections/Processi ng: Formstone Fitter sections in 4 cassettes as follows: ?A1: ??Undesignated margin #1, appeals representative ?A2: ??Undesignated margin #2, appeals representative ?A3: ??Formstone Fitter of the mucosa ?A4: ??Formstone Fitter of foreign body received in the specimen container (consistent ? with undigested broccoli, and also described in the op note) ??AOO 07/13/2023 2:03 PM EDT [facility] COLON STRUCTURE / Unknown 07/03/2023 7:23 PM EDT 07/03/2023 7:23 PM EDT Arely Murray MD PATHOLOGY/CYTOLOGY O RDERABLES [facility] [place] [address] * Specimen to Pathology (07/03/2023 7:23 PM EDT) AP Specimen 07/03/2023 7:23 PM EDT 07/03/2023 7:23 PM EDT Narrative [facility] - 07/03/2023 7:23 PM EDT Specimen requisition ordered. ??Separate Pathology report to follow Reuben Thibdoeaux MD PATHOLOGY/CYTOLOGY O KORY Performing Organization Address City/[facility]/ZIP Co de Phone Number [facility] [place] [address] * ABORH Recheck Status (07/03/2023 2:46 AM EDT) ABORH Type Recheck Completed [facility] Blood 07/03/2023 2:46 AM EDT 07/03/2023 3:08 AM EDT Narrative Resulting Agency Comment Spec In Lab John Clements MD BLOOD BANK LAB O RDDEO [facility] [place] [address] * (ABNORMAL) Differential, Automated (07/03/2023 2:46 AM EDT) Neutrophil % 61.9 % [facility] Neutrophil Absolute 7.51(H) 1.70 - 6.10 x10(3)/mc L [facility] Lymph % 27.3 % [facility] Lymphocytes Abs 3.3(H) 0.9 - 3.2 x10(3)/mc L [facility] Monocyte % 5.8 % [facility] Monocyte Abs 0.7 0.3 - 0.9 x10(3)/mc L [facility] Eos % 4.0 % [facility] Eosinophils Abs 0.5(H) 0.0 - 0.4 x10(3)/mc L [facility] Basophil % 0.7 % [facility] Baso Absolute 0.1 0.0 - 0.1 x10(3)/mc L [facility] Immature Gran % 0.30 % [facility] Comment: Immature granulocytes(IG's)percentage and absolute count will include metamyelocytes, myelocytes, and promyelocytes. Blood smears from CBCs yielding IG's will be scanned manually for concordance. If this scan disagrees with the automated IG or if promyelocytes are noted, a manual differential will be performed. Immature Gran Absolute 0.04 0.00 - 0.04 x10(3)/[facility] Blood 07/03/2023 2:46 AM EDT 07/03/2023 3:03 AM EDT Narrative Resulting Agency Comment Spec In Lab John Clements MD HEMATOLOGY ORDER BELKIS [facility] [place] [address] * (ABNORMAL) Hemogram (07/03/2023 2:46 AM EDT) White Blood Cell 12.1(H) 4.0 - 9.5 x10(3)/[facility] Red Blood Cell 5.27 4.58 - 5.54 x10(6)/[facility] Hemoglobin 15.9 13.7 - 16.5 g/dL [facility] Hematocrit 46.3 40.5 - 48.5 % [facility] Mean Cell Volume 87.9 82.9 - 93.1 fL [facility] Mean Cell Hemoglobin 30.2 27.5 - 32.1 pg [facility] Mean Cell Hemoglobin Concentration 34.3 32.0 - 35.7 g/dL [facility] Platelet 245 145 - 357 x10(3)/[facility]ORATORY RDW Standard Deviation 42.7 36.0 - 45.0 fL [facility] RDW coefficient of variation 13.2 11.4 - 13.8 % [facility] Mean Platelet Volume 9.2 7.6 - 12.9 fL [facility] NRBC% auto 0.0 % [facility] NRBC Absolute 0.000 0.000 - 0.000 x10(3)/mc L [facility] Blood 07/03/2023 2:46 AM EDT 07/03/2023 3:03 AM EDT Narrative Resulting Agency Comment Spec In Lab John Clements MD HEMATOLOGY ORDER BELKIS [facility] [place] [address] * Phosphorus (07/03/2023 2:46 AM EDT) Phosphorus 3.0 2.5 - 4.5 mg/dL [facility] Blood 07/03/2023 2:46 AM EDT 07/03/2023 3:03 AM EDT Narrative Resulting Agency Comment Spec In Lab Reuben Thibodeaux MD CHEMISTRY ORDERABLES Performing Organization Address City/[facility]/ZIP Co de Phone Number [facility] [place] [address] * Magnesium (07/03/2023 2:46 AM EDT) Magnesium 0.87 0.69 - 1.07 mmol/L [facility] Blood 07/03/2023 2:46 AM EDT 07/03/2023 3:03 AM EDT Narrative Resulting Agency Comment Spec In Lab Reuben Thibodeaux MD CHEMISTRY ORDERABLES Performing Organization Address [facility]/ZIP Co de Phone Number [facility] [place] [address] * (ABNORMAL) Basic Metabolic Panel (non-fasting) (07/03/2023 2:46 AM EDT) Glucose 102 65 - 199 mg/dL [facility] Comment:Diabetes: >=200 mg/d L plus symptoms Blood Urea Nitrogen 15 10 - 20 mg/dL [facility] Creatinine 1.10 0.80 - 1.50 mg/dL [facility] Sodium 138 135 - 145 mmol/L [facility] Potassium 3.7 3.5 - 5.0 mmol/L [facility] Comment: Please note: ??Patients with WBC >100,000 may have falsely elevated Potassium levels. ??For accurate Potassium quantification in these patients send serum separator tube (gold top) for subsequent determinations. ??Contact the Clinical Chemistry Laboratory if there are any questions. Chloride 105 98 - 107 mmol/L [facility] Carbon Dioxide 18(L) 22 - 31 mmol/L [facility] Anion Gap 15 5 - 15 mmol/L [facility] Calcium 9.0 8.5 - 10.5 mg/dL [facility] Est Glomerular Filtration Rate 82 >=60 mL/min/1. 73 m?? [facility] Comment: This patient's estimated [...] In Lab Reuben Thibodeaux MD CHEMISTRY ORDERABLES [facility] [place] [address] * Type and screen ([facility]DULCE MARIA) (07/03/2023 2:46 AM EDT) ABORH Type A POSITIVE [facility] Patient BB History Found [facility] Expires at 2359 on: 07-06-2023 [facility] Ab Screen Interp Negative [facility] Blood 07/03/2023 2:46 AM EDT 07/03/2023 2:46 AM EDT Narrative [facility] - 07/03/2023 2:46 AM EDT This Type and Screen result is only valid at the [facility] Resulting Agency Comment Spec In Lab Aria Nuñez MD BLOOD BANK LAB ORDER BELKIS [facility] [place] [address] * (ABNORMAL) Urinalysis with reflex Culture (07/02/2023 7:53 PM EDT) Glucose, Urine Dipstick Negative Negative mg/dL [facility] Protein, Urine Dipstick Negative Negative mg/dL [facility] Bilirubin, Urine Dipstick Negative Negative mg/dL [facility] Comment: Clinical correlation required for positive Urine Bilirubin results as false positive may occur with some drugs and drug related products. If a false positive is suspected a serum total bilirubin should be considered if clinically indicated. Urobilinogen, Urine Dipstick Normal Normal mg/dL [facility] pH, Urn (dipstick) 5.5 5.0 - 8.0 [facility] Blood, Urine Dipstick Negative Negative mg/dL [facility] Ketone, Urine Dipstick Trace(A) Negative mg/dL [facility] Nitrite, Urine Dipstick Negative Negative [facility] Leukocytes, Urine Dipstick Negative Negative [facility] Appearance, Urine Dipstick Clear Clear [facility] Specific [facility] Urine Automated >=1.030(A) 1.005 - 1.030 [facility] Color, Urine Dipstick Yellow Yellow [facility] Reflex to Culture No [facility] Clean Catch Urine 07/02/2023 7:53 PM EDT 07/02/2023 8:38 PM EDT Narrative Resulting Agency Comment Spec In Lab Tracey Irma Mnceal DO URINE ORDER BELKIS Performing Organization Address City/[facility]/ZIP Co de Phone Number [facility] [place] [address] * Lactate, whole blood, send to lab ([facility] (07/02/2023 4:23 PM EDT) Lactate WB 1.0 0.5 - 2.2 mmol/L [facility] Blood Venous Draw / Unknown 07/02/2023 4:23 PM EDT 07/02/2023 4:30 PM EDT Narrative Resulting Agency Comment Spec In Lab Aria Nuñez MD CHEMISTRY ORDERABLES Performing Organization Address City/[facility]/ZIP Co de Phone Number [facility] [place] [address] * CT Abdomen & Pelvis w Contrast (07/02/2023 3:49 PM EDT) WORKSTATION ID [id number] [facility] Anatomical Region Laterality Modality Abdomen, Pelvis Computed [...] who have questions please contact the health cardiac care unit nurse that requested your imaging first. ? Electronically signed by: Cl Graham MD, [facility] ([phone]), at 07/02/2023 4:15 PM Narrative 07/02/2023 4:15 PM EDT EXAMINATION: CT [...] patients who have questions please contactthe health cardiac care unit nurse that requested your imaging first. Electronically signed by: Cl Graham MD, [facility]([phone]), at 07/02/2023 4:15 PM Aria Nuñez MD IMG CT ORDERABLES * CT Head wo Contrast (Generic) (07/02/2023 3:49 PM EDT) [employer] Signature WORKSTATION ID [id number] RAD Anatomical Region Laterality Modality Head Computed [...] who have questions please contact the health cardiac care unit nurse that requested your imaging first. ? Electronically signed by: Jackson Jules DO, [facility] ??([phone]), at 07/02/2023 3:57 PM Narrative 07/02/2023 3:57 PM EDT EXAMINATION: CT HEAD WO CONTRAST (GENERIC) CLINICAL HISTORY: recurrent epigastric abdominal pain and emesis in patient with [employer] shunt, Pt with PMH of congenital hydrocephalus [...] epigastric abdominal pain and emesis inpatient with [employer] shunt, Pt with PMH of congenital hydrocephalus [...] patients who have questions please contactthe health cardiac care unit nurse that requested your imaging first. Electronically signed by: Jackson Jules DO [facility]([phone]), at 07/02/2023 3:57 PM Aria Nuñez MD IMG CT ORDERABLES * XR Shunt Series (07/02/2023 3:43 PM EDT) WORKSTATION ID [id number] RAD Anatomical Region Laterality Modality N/A Digital RadioLeondra musica phy Impressions 07/02/2023 3:54 PM EDT Proximal [...] who have questions please contact the health cardiac care unit nurse that requested your imaging first. ? Electronically signed by: Emerita Bernstein MD, [facility] ([phone]), at 07/02/2023 3:54 PM Narrative 07/02/2023 3:54 [...] patients who have questions please contactthe health cardiac care unit nurse that requested your imaging first. Electronically signed by: Emerita Bernstein MD, [facility]([phone]), at 07/02/2023 3:54 PM Aria Nuñez MD IMG DX ORDERABLES * Gold Tube HOLD (07/02/2023 3:02 PM EDT) [facility] Gold Hold Sample in lab. [facility] Blood Venous Draw / Unknown 07/02/2023 3:02 PM EDT 07/02/2023 3:07 PM EDT Jeremy DURHAM CHEMISTRY ORDERABLES [facility] [place] [address] * Blue Tube HOLD (07/02/2023 3:02 PM EDT) Blue Hold Sample in lab. [facility] Blood Venous Draw / Unknown 07/02/2023 3:02 PM EDT 07/02/2023 3:08 PM EDT Jeremy DURHAM HEMATOLOGY ORDERABLE S Performing Organization Address [facility]/ZIP Co de Phone Number [facility] [place] [address] * (ABNORMAL) Differential, Automated (07/02/2023 3:02 PM EDT) Neutrophil % 77.3 % [facility] Neutrophil Absolute 12.20(H) 1.70 - 6.10 x10(3)/mc L [facility] Lymph % 15.8 % [facility] Lymphocytes Abs 2.5 0.9 - 3.2 x10(3)/ L [facility] Monocyte % 4.1 % [facility] Monocyte Abs 0.6 0.3 - 0.9 x10(3)/ L [facility] Eos % 1.9 % [facility] Eosinophils Abs 0.3 0.0 - 0.4 x10(3)/ L [facility] Basophil % 0.5 % [facility] Baso Absolute 0.1 0.0 - 0.1 x10(3)/ L [facility] Immature Gran % 0.40 % [facility] Comment: Immature granulocytes(IG's)percentage and absolute count will include metamyelocytes, myelocytes, and promyelocytes. Blood smears from CBCs yielding IG's will be scanned manually for concordance. If this scan disagrees with the automated IG or if promyelocytes are noted, a manual differential will be performed. Immature Gran Absolute 0.06(H) 0.00 - 0.04 x10(3)/mc L [facility] Blood 07/02/2023 3:02 PM EDT 07/02/2023 3:07 PM EDT Narrative Resulting Agency Comment Spec In Lab Jeremy DURHAM HEMATOLOGY ORDERABLE S Performing Organization Address [facility]/ZIP Co de Phone Number [facility] [place] [address] * (ABNORMAL) Hemogram (07/02/2023 3:02 PM EDT) White Blood Cell 15.8(H) 4.0 - 9.5 x10(3)/[facility] Red Blood Cell 5.70(H) 4.58 - 5.54 x10(6)/ L [facility] Hemoglobin 17.1(H) 13.7 - 16.5 g/dL [facility] Hematocrit 49.7(H) 40.5 - 48.5 % [facility] Mean Cell Volume 87.2 82.9 - 93.1 fL [facility] Mean Cell Hemoglobin 30.0 27.5 - 32.1 pg [facility] Mean Cell Hemoglobin Concentration 34.4 32.0 - 35.7 g/dL [facility] Platelet 253 145 - 357 x10(3)/[facility]ORATORY RDW Standard Deviation 42.6 36.0 - 45.0 [facility] RDW coefficient of variation 13.2 11.4 - 13.8 % [facility] Mean Platelet Volume 9.0 7.6 - 12.9 fL [facility] NRBC% auto 0.0 % [facility] NRBC Absolute 0.000 0.000 - 0.000 x10(3)/[facility] Blood 07/02/2023 3:02 PM EDT 07/02/2023 3:07 PM EDT Narrative Resulting Agency Comment Spec In Lab Jeremy DURHAM HEMATOLOGY ORDERABLE S [facility] [place] [address] * Magnesium (07/02/2023 3:02 PM EDT) Magnesium 0.87 0.69 - 1.07 mmol/L [facility] Blood 07/02/2023 3:02 PM EDT 07/02/2023 3:07 PM EDT Narrative Resulting Agency Comment Spec In Lab Tracey Irma Mcneal DO CHEMISTRY O RDERABLES [facility] [place] [address] * Lipase (07/02/2023 3:02 PM EDT) Lipase 35 0 - 60 unit/L [facility] Blood 07/02/2023 3:02 PM EDT 07/02/2023 3:07 PM EDT Narrative Resulting Agency Comment Spec In Lab Tracey Irma Mcneal DO CHEMISTRY O RDERABLES Performing Organization Address [facility] Co de Phone Number [facility] [place] [address] * (ABNORMAL) Comprehensive metabolic panel (non-fasting) (07/02/2023 3:02 PM EDT) Glucose 101 65 - 199 mg/dL [facility] Comment:Diabetes: >=200 mg/d L plus symptoms Blood Urea Nitrogen 16 10 - 20 mg/dL [facility] Creatinine 1.07 0.80 - 1.50 mg/dL [facility] Sodium 134(L) 135 - 145 mmol/L [facility] Potassium 4.0 3.5 - 5.0 mmol/L [facility] Comment: Please note: ??Patients with WBC >100,000 may have falsely elevated Potassium levels. ??For accurate Potassium quantification in these patients send serum separator tube (gold top) for subsequent determinations. ??Contact the Clinical Chemistry Laboratory if there are any questions. Chloride 101 98 - 107 mmol/L [facility] Carbon Dioxide 19(L) 22 - 31 mmol/L [facility] Anion Gap 14 5 - 15 mmol/L [facility] Calcium 9.6 8.5 - 10.5 mg/dL [facility] Protein, Total 7.6 6.1 - 8.0 g/dL [facility] Albumin 4.4 3.2 - 5.2 g/dL [facility] Aspartate Aminotransferase 13 0 - 39 unit/L [facility] Alanine Aminotransferase 14 0 - 55 unit/L [facility] Alkaline Phosphatase 98 40 - 130 unit/L [facility] Bilirubin, Total 0.6 0.2 - 1.3 mg/dL [facility] Est Glomerular Filtration Rate 85 >=60 mL/min/1. 73 m?? [facility] Comment: This patient's estimated [...] Lab Tracey Mcneal DO CHEMISTRY O RDERABLES [facility] [place] [address] documented in this encounter Visit Diagnoses Diagnosis Small bowel obstruction- Primary Unspecified intestinal obstruction Small bowel obstruction Unspecified intestinal obstruction documented in this encounter Admitting Diagnoses Diagnosis Small bowel obstruction Unspecified intestinal obstruction documented in this encounter Administered Medications Inactive Administered Medications - up to 3 most recent administrations Medication Order MAR Action Action Date Dose Rate Site acetaminophen (Ofirmev) (1,000 mg/100 mL) infusion 1,000 mg 1,000 mg, Intravenous, at 400 mL/hr, Administer over 15 Minutes, ONCE, 1 dose, On Sandra 07/02/23 at 1717, Maximum dose of acetaminophen is 4,000 mg from all sources in 24 hours. When ordered for pain, acetaminophen should be given even when other ordered pain medications are indicated., Routine, Is ketorolac (Toradol) IV contraindicated? Yes, Can this patient tolerate oral medications or suppositories? No Given 07/02/2023 5:44 PM EDT 1,000 mg 400 mL/hr acetaminophen (Ofirmev) (1,000 mg/100 mL) infusion 1,000 mg 1,000 mg, Intravenous, at 400 mL/hr, Administer over 15 Minutes, EVERY 6 HOURS SCHEDULED, 4 doses, First dose (after last reorder) on Thu07/03/23 at 0000, Last dose on Thu07/03/23 at 1800, Maximum dose of acetaminophen is 4,000 mg from all sources in 24 hours. When ordered for pain, acetaminophen should be given even when other ordered pain medications are indicated., Routine, Is ketorolac (Toradol) IV contraindicated? Yes, Can this patient tolerate oral medications or suppositories? No Given 07/03/2023 12:29 PM EDT 1,000 mg 400 mL/hr Given 07/03/2023 6:10 AM EDT 1,000 mg 400 mL/hr Given 07/03/2023 12:54 AM EDT 1,000 mg 400 mL/hr acetaminophen (Ofirmev) (1,000 mg/100 mL) infusion 1,000 mg 1,000 mg, Intravenous, at 400 mL/hr, Administer over 15 Minutes, EVERY 8 HOURS SCHEDULED, 3 doses, First dose on Thu07/03/23 at 2330, Last dose on Thu07/04/23 at 1530, Maximum dose of acetaminophen is 4,000 mg from all sources in 24 hours. When ordered for pain, acetaminophen should be given even when other ordered pain medications are indicated., Routine, Is ketorolac (Toradol) IV contraindicated? Yes, Can this patient tolerate oral medications or suppositories? No Given 07/04/2023 3:10 PM EDT 1,000 mg 400 mL/hr Given 07/04/2023 6:47 AM EDT 1,000 mg 400 mL/hr Given 07/03/2023 11:26 PM EDT 1,000 mg 400 mL/hr acetaminophen (Tylenol) tablet 975 mg 975 mg, [...] Given 07/08/2023 12:03 AM EDT 975 mg ampicillin-sulbactam (Unasyn) 3 g vial attach to sodium chloride 0.9% 100 mL Mini-Bag Plus 3 g, Intravenous, EVERY 6 HOURS, First dose on Thu07/03/23 at 2315, Until Discontinued, Administer over 15 Minutes, Warning Vesicant/Irritant Medication , Indication for (Active or Suspected): GI/Intra-abdominal New Bag 07/08/2023 10:53 AM EDT 3 g 400 mL/hr New Bag 07/08/2023 5:32 AM EDT 3 g 400 mL/hr New Bag 07/08/2023 12:03 AM EDT 3 g 400 mL/hr ARIPiprazole (Abilify) tablet 10 mg 10 mg, Oral, DAILY, First dose on Thu07/03/23 at 0900, Until Discontinued, Routine Given 07/03/2023 8:12 AM EDT 10 mg ARIPiprazole (Abilify) tablet 10 mg 10 mg, Per NG tube, DAILY, First dose (after last modification) on 07/04/23 at 0900, Until Discontinued, Routine Given 07/08/2023 8:39 AM EDT 10 mg Given 07/07/2023 8:36 AM EDT 10 mg Given 07/06/2023 8:49 AM EDT 10 mg atorvastatin (Lipitor) tablet 10 mg 10 mg, Oral, DAILY, First dose on Sandra 07/02/23 at 1754, Until Discontinued, Routine Given 07/03/2023 8:13 AM EDT 10 mg Given 07/02/2023 6:42 PM EDT 10 mg atorvastatin (Lipitor) tablet 10 mg 10 mg, Per NG tube, DAILY, First dose (after last modification) on 07/04/23 at 0900, Until Discontinued, Routine Given 07/08/2023 8:39 AM EDT 10 mg Given 07/07/2023 8:36 AM EDT 10 mg Given 07/06/2023 8:49 AM EDT 10 mg heparin (porcine) (5,000 units/1 mL) subcutaneous injection 5,000 Units 5,000 Units, Subcutaneous, EVERY 8 HOURS SCHEDULED, First dose on Thu07/02/23 at 1752, Until Discontinued, Routine Given 07/08/2023 5:32 AM EDT 5,000 Unit s Given 07/07/2023 9:15 PM EDT 5,000 Units Given 07/07/2023 1:35 PM EDT 5,000 Units HYDROmorphone (Dilaudid) (1 mg/mL) in sodium chloride 0.9% 50 mL POT FILLER infusion syringe Intravenous, POT FILLER ONLY, Starting on Thu07/03/23 at 2100, Until Thu07/06/23 at 1055, Recovery (Recovery-Hospital Unit) New Syringe/Cartridge 07/04/2023 10:09 PM EDT 50 mg New Syringe/Cartridge 07/03/2023 9:19 PM EDT 50 mg ibuprofen (Advil) tablet 600 mg 600 mg, Oral, EVERY 6 HOURS PRN, Starting on Thu07/08/23 at 0000, Until Thu07/08/23 at 1501, Pain, Administer orally with milk or food to minimize GI irritation. Maximum dose of 3,200 mg from all sources in 24 hours, Routine Given 07/08/2023 12:04 PM EDT 600 mg iohexoL (Omnipaque) (350 mg/mL) solution 0-200 mL 0-200 mL, Intravenous, ONCE PRN, 1 dose, Starting on Thu07/02/23 at 1546, Until Thu07/02/23 at 1546, Per Protocol, Warning Vesicant/Irritant Medication , Radiology Contrast, Routine Given 07/02/2023 3:46 PM EDT 113 mLs ketorolac (Toradol) (15 mg/mL) injection 15 mg 15 mg, Intravenous, EVERY 6 HOURS, 10 doses, First dose on Thu07/05/23 at 1000, Last dose on Thu07/07/23 at 1600, Routine Given 07/07/2023 5:07 PM EDT 15 mg Given 07/07/2023 10:54 AM EDT 15 mg Given 07/07/2023 4:59 AM EDT 15 mg lactated ringers infusion 1,000 mL, at 100 mL/hr, Intravenous, CONTINUOUS, Starting on Sandra 07/02/23 at 1752, Until 07/06/23 at 1141 New Bag 07/06/2023 2:45 AM EDT 1,000 mLs 100 m L/hr New Bag 07/05/2023 12:29 AM EDT 1,000 mLs 100 mL/hr New Bag 07/04/2023 6:04 AM EDT 1,000 mLs 100 mL/hr lactated ringers infusion 1,000 mL, at 100 mL/hr, Intravenous, CONTINUOUS, Starting on Thu07/03/23 at 2030, Until Thu07/03/23 at 2157, PACU Recovery New Bag 07/03/2023 9:24 PM EDT 1,000 mLs 100 mL/hr levothyroxine (Synthroid) tablet 25 mcg 25 mcg, Oral, DAILY, First dose on Thu07/03/23 at 0900, Until Discontinued, Routine Given 07/03/2023 8:13 AM EDT 25 mcg levothyroxine (Synthroid) tablet 25 mcg 25 mcg, nephrostomy tube, DAILY, First dose (after last modification) on Thu07/04/23 at 0600, Until Discontinued, Routine Given 07/08/2023 [...] 3 mg, Oral, NIGHTLY PRN, Starting on Thu07/02/23 at 1748, Until Thu07/08/23 at 1501, Sleep, [...] Given 07/08/2023 12:03 AM EDT 2.5 mg metoprolol succinate XL (Toprol-XL) tablet 25 mg 25 mg, Oral, DAILY, First dose on Thu07/03/23 at 0900, Until Discontinued, DO NOT CRUSH OR OPEN, Routine Given 07/03/2023 8:13 AM EDT 25 mg ondansetron (pf) (Zofran) [...] 40 mg, Oral, DAILY, First dose on Thu07/03/23 at 0900, Until Discontinued, DO NOT CRUSH Given 07/03/2023 8:13 AM EDT 40 mg pantoprazole EC (Protonix) [...] Given 07/07/2023 1:35 PM EDT 17 g potassium phosphate 15 mMol in sodium chloride 0.9% 250 mL infusion 15 mmol, Intravenous, ONCE, 1 dose, On Thu07/05/23 at 0600, Administer over 4 Hours, Administer over 4-6 hours New Bag 07/05/2023 6:33 AM EDT 15 mmol 62.5 mL/hr potassium phosphate 15 mMol in sodium chloride 0.9% 250 mL infusion 15 mmol, Intravenous, ONCE, 1 dose, On Thu07/06/23 at 0615, Administer over 4 Hours, Administer over 4-6 hours New Bag 07/06/2023 6:35 AM EDT 15 mmol 62.5 mL/hr senna-docusate (Pericolace) 8.6-50 mg per tablet 2 tablet 2 tablet, Oral, 2 TIMES DAILY, First dose on Thu07/03/23 at 2315, Until Discontinued, Hold for loose stool. , Routine Given 07/08/2023 8:39 AM EDT 2 tablets Given 07/07/2023 9:15 PM EDT 2 tablets Given 07/06/2023 9:48 PM EDT 2 tablets sertraline (Zoloft) tablet 100 mg 100 mg, Oral, DAILY, First dose on Thu07/03/23 at 0900, Until Discontinued, Routine Given 07/03/2023 8:13 AM EDT 100 mg sertraline (Zoloft) tablet 100 mg 100 mg, [...] 2 TIMES DAILY, First dose on Sandra 07/02/23 at 2100, Until Discontinued, Routine Given 07/08/2023 [...] on this medication record., Routine sodium chloride 0.9% 1,000 mL IV bolus at 2,000 mL/hr, Intravenous, ONCE, 1 dose, On Sandra 07/02/23 at 1622 New Bag 07/02/2023 4:29 PM EDT 2 000 mL/hr topiramate (Topamax) tablet 25 mg 25 mg, [...] shown in EDT. Scheduled Medication Order 07/06/2023 07/07/202307/08/2023 acetaminophen (Tylenol) tablet 975 mg 975 mg, [...] Provider: Selena Odonnell LPN)1707 (Given - Provider: Selean Odonnell LPN) 0003 (Given - Provider: Yessenia [...] Selena Odonnell LPN)1147 (Stopped - Provider: Selena Odonnell LPN)1715 (New Bag - Provider: Selena Odonnell LPN)1900 (Stopped - Provider: Yessenia Candelario RN) 0003 (New Bag - Provider: Yessenia Candelario RN)0018 (Stopped - Provider: Yessenia Candelario RN)0532 (New Bag - Provider: Yessenia Candelario RN)0547 (Stopped - Provider: Yessenia Candelario RN)1053 (New Bag - Provider: Shivani Seay LPN)1105 [...] Candelario RN)1054 (Given - Provider: Selena Odonnell LPN)1707 (Given - Provider: Selena Odonnell LPN) levothyroxine [...] hours 0635 (New Bag - Provider: Dorota Martin RN)1035 (Stopped - Provider: Selena Odonnell LPN) senna-docusate (Pericolace) 8.6-50 mg per tablet 2 tablet 2 tablet, Oral, 2 TIMES DAILY, First dose on Thu07/03/23 at 2315, Until Discontinued, Hold for loose stool. , Routine 0849 (Given - Provider: Selena Odonnell LPN)2148 (Given - Provider: Yessenia Candelario RN) 0900 (Not Given - Provider: Selena Odonnell LPN - Reason: Patient/family refused)2115 (Given - Provider: Yessenia Candelario RN) 0839 (Given - Provider: Shivani Seay LPN) sertraline (Zoloft) tablet 100 mg 100 mg, Per NG tube, DAILY, First dose (after last modification) on Thu07/04/23 at 0900, Until Discontinued, Routine 0850 (Given - Provider: Selena Odonnell LPN) 0837 (Given - Provider: Selena Odonnell LPN) 0839 (Given - Provider: Shivani Seay LPN) sodium chloride 0.9 % (flush) (BD PosiFlush Normal Saline 0.9) flush 5 mL 5 mL, Intravenous, 2 TIMES DAILY, First dose on Sandra 07/02/23 at 2100, Until Discontinued, Routine 0852 (Given [...] RN) 0840 (Given - Provider: Selena Odonnell LPN)2114 (Given - Provider: Yessenia Candelario RN) 0842 [...] 3 mg, Oral, NIGHTLY PRN, Starting on Thu07/02/23 at 1748, Until Thu07/08/23 at 1501, Sleep, Sleep, Routine 2148 (Given - Provider: Yessenia Candelario, EDWARD) 2115 (Given - Provider: Yessenia Candelario, EDWARD) ondansetron (pf) (Zofran) (2 mg/mL) injection [...] ordered, use ondansetron first, prochlorperazine second. Per POT FILLER order., Recovery (Recovery-Hospital Unit) ondansetron ODT (Zofran-ODT) [...] ordered, use ondansetron first, prochlorperazine second. Per POT FILLER order., Recovery (Recovery-Hospital Unit), Routine sodium chloride [...] at 1749, Until 07/08/23 at 1501, Nausea, If multiple antiemetics are [...] ineffective. documented in this encounter Care Teams Trucking Manager Relationship Specialty Start Date End Date Peter Lebron PA [address] [place] [address] PCP - General Internal Medicine 08/21/22 documented as of this encounter
--- OUTSIDE RECORDS SUMMARY | 2024-02-29 15:43 | XMS_ITS | Encounter Summary ---
Author Organization [facility] [place] [address] Care Team Providers Care Waterproofing Supervisor Name Role Phone Peter Lebron Primary Care Provider [phone] Encounter Details Date Type Department Care Team (Latest Contact Info) Description 07/02/2023 Travel Social History Tobacco Use Types Packs/Day [...] in a fci (including now)? No 07/03/2023 DH IPV Inpatient [...] on filedocumented in this encounter Care Teams Waterproofing Supervisor Relationship Specialty Start Date End Date Peter Lebron PA [address] [place] [address] PCP - General Internal Medicine 08/21/22 documented as of this encounter
--- OUTSIDE RECORDS SUMMARY | 2024-02-29 15:44 | XMS_ITS | Encounter Summary ---
Author Organization [facility] [place] [address] Care Team Providers Care Engineering Group Leader Name Role Phone Peter Lebron Primary Care Provider [phone] Reason for Referral * Home Health Care (Routine) - Closed Specialty Diagnoses / Procedures Referred By Contac t Referred To Contact Diagnoses 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 Peter Lebron PA [facility] [address] [place] [address] Referral ID Status Reason Start Date Expiration Date V isits Requested Visits Authorized [id number] Closed Consult, Test & Treat 06/30/2023 12/27/2023 999 999 Reason for Visit * Reason Comments Post-op Problem Abdominal Pain * Auth/Cert (Routine) Specialty Diagnoses / Procedures Referred By Contac t Referred To Contact Diagnoses Shunt malfunction Rhoda Jimenez MD [facility] [place] [address] [facility] Referral ID Status Reason Start Date Expiration Date Visits Re quested Visits Authorized [id number] 1 1 Encounter Details Date Type Department Care Team (Latest Contact Info) Description 06/16/2023 10:22 AM EDT - 06/30/2023 4:38 PM EDT Hospital Encounter Neuro Special Care Unit Level 3 Wing C at [facility] [place] [id number] Dennis Castillo MD [facility] [place] [address] Rhoda Jimenez MD [facility] [place] [address] Shunt malfunction, initial encounter; ST segment depression; 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 Discharge Disposition: Home Social History Tobacco Use Types Packs/Day Years Used Date Smoking Tobacco: Never Smokeless Tobacco: Never Alcohol Use Standard Drinks/Week Comments No 0 (1 standard drink = 0.6 oz pur e alcohol) [facility] Utilities Answer Date Recorded In [...] place to sleep or slept in a intermediate (including now)? No 06/18/2023 DH IPV Inpatient Questions Answer Date Recorded Does Anyone Try to Keep You From Having Contact with Others or Doing Things Outside Your Home? no 06/24/2023 Feels Threatened by Someone no 05/0 02/2023 Feels Unsafe at Home or Work/School no 06/24/2023 Physical Signs of Abuse Present no 06/24/2023 Sex and Gender Information Value Date Recorded Sex Assigned at Male 10/11/2020 1:38 PM EDT Gender Identity Male 01/18/2020 8:12 PM EST Sexual Orientation Straight 10/11/2020 1: 38 PM EDT documented as of this encounter Last Filed Vital Signs Vital Sign Reading Time Taken Comments Blood Pressure 111/101 06/30/2023 8:00 AM EDT Pulse 70 06/30/2023 8:00 AM EDT Temperature 36.7 ??C (98.1 ??F) 06/30/2023 8:00 AM ED T Respiratory Rate 21 06/30/2023 8:00 AM EDT Oxygen Saturation 95% 06/30/2023 8:00 AM EDT Inhaled Oxygen Concentration - - Weight 88.3 kg (194 lb 10.7 oz) 06/24/2023 7:56 PM EDT Height 167.6 cm (5' 6) 06/24/2023 7:25 PM EDT Body Mass Index 31.42 06/24/2023 7:25 PM EDT documented in this encounter Discharge Summaries * Mirian Murrieta PA - 06/30/2023 10:18 AM EDT Patient Name: Chapin Costa Patient Age: 52 y.o. Admit date: 06/16/2023 Discharge Date and Time: 06/30/23 2:36 PM Attending Physician: Rhoda Jimenez MD Discharging Provider: MARVA Reeves Discharging Service: NEUROSURGERY Operations/Major Procedures: Procedure(s) (LRB): REVISION OR REPLACEMENT CSF SHUNT (WRVU 11.43) (Right) Distal catheter revision into pleural space 06/29/23 Dr. Rhoda Jimenez Active Hospital Problems: Active Hospital Problems Diagnosis Shunt malfunction Resolved Hospital Problems No resolved problems to display. Active Non Hospital Problems: Active Non-Hospital Problems Diagnosis Congenital hydrocephalus Hydrocephalus Seizures Cervicalgia Headache Persistent headaches 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 History of Presentation: Per review of relevant records Chapin Costa is an 52 y.o. male with the above past medical history who presented to ED on 06/16/23 with reports of headache, abdominal pain and drainage from prior abdominal incision site and subjective fevers. Of note, he had undergone revision of distal ventriculoperitoneal shunt catheter on 06/08/23 for discontinuity of catheter at entrance to peritoneum after initially presenting with abnormal headaches and abdominal pain without radiographic or clinical signs of abdominal infection. Upon presentation, erythematous tissue surrounding right abdominal incision site was noted on exam; he was neurologically intact. Radiographic imaging showed discontinuity of distal catheter at previous attachment point. Shunt was externalized and broad spectrum antibiotics were started. Hospital Course: On 06/16/23, Chapin Costa was admitted to [facility] for treatment of abdominal fluid collections and distal shunt catheter reimplantation. On 06/17, IR aspirated and collected cultures of the superficial abdominal fluid collection. On 06/20/23, general surgery obtained deep peritoneal fluid collection cultures during operation to remove the distal portion of Mr. Costa's intra-abdominal POINT OF CARE 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catheter. Abdominal cultures eventually grew E. faecalis for which antibiotics were narrowed by infectious diease from vancomycin + ceftriaxone to ampicillin sulbactam on 06/23/23. CSF cultures showedno growth, result finalized 06/27/23. Mr. Costa developed decreased appetite, abdominal distention, nausea, one episode of vomiting, found to have partial SBO on 06/27 which resolved by 06/28. 06/28 Mr. Costa underwent surgery for removal of externalized POINT OF CARE 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 catheter and replacement with a new right sided ventriculopleural distal catheter. There were no apparent complications intraoperatively. The incision closed with nylon (to be removed on 07/20/23). Post-operatively, he was extubated and returned to the neurosurgical service. His exam was intact and post-operative imaging demons trated in tact ventriculopleural shunt catheter in place with no pneumothorax. Physical and occupational therapies evaluated the patient and recommended discharge to home with VNA. Home medications were administered during the hospitalization and will be continued after discharge. Infectious disease recommended Augmentin 875-125mg PO BID x3-4 weeks for discharge and follow up with repeat abdominal imaging in 3-4 weeks. At time of discharge patient is afebrile, neurologically stable, tolerating a regular diet, ambulating independently, voiding spontaneously, and managing pain with oral pain medications. Exam at discharge: General: alert, conversing appropriately Neuro: AO3 Speech fluent R exotropia but EOMI Smiles symmetrically, sticks out tongue midline RUE 5/5 LUE 5/5 RLE 5/5 LLE 5/5 Abdominal incision CDI with dermabond/absorbable suture, belly nontender, soft with slight distension R medial and lateral chest dressings CDI Head wrap CDI Important Studies and Lab Data: Labs: Recent Results (from the past 24 hour(s)) Basic Metabolic Panel (non-fasting) Result Value Ref Range Glucose Lvl 116 65 - 199 mg/dL BUN 15 10 - 20 mg/dL Creatinine 1.36 0.80 - 1.50 mg/dL Sodium 138 135 - 145 mmol/L Potassium 4.1 3.5 - 5.0 mmol/L Chloride 107 98 - 107 mmol/L CO2 21 (L) 22 - 31 mmol/L Anion Gap 10 5 - 15 mmol/L Calcium 9.4 8.5 - 10.5 mg/dL Estimated GFR 63 >=60 mL/min/1.73 m?? Hemogram Result Value Ref Range WBC 16.0 (H) 4.0 - 9.5 x10(3)/mcL RBC 5.79 (H) 4.58 - 5.54 x10(6)/mcL Hemoglobin 17.1 (H) 13.7 - 16.5 g/dL Hematocrit 49.7 (H) 40.5 - 48.5 % MCV 85.8 82.9 - 93.1 fL MCH 29.5 27.5 - 32.1 pg MCHC 34.4 32.0 - 35.7 g/dL Platelets 257 145 - 357 x10(3)/mcL RDWSD 41.3 36.0 - 45.0 fL RDWCV 13.3 11.4 - 13.8 % MPV 9.1 7.6 - 12.9 fL nRBC % Auto 0.0 % nRBC Abs Auto 0.000 0.000 - 0.000 x10(3)/mcL Differential, Automated Result Value Ref Range Neutrophils % 74.9 % Neutr Abs (ANC) 12.03 (H) 1.70 - 6.10 x10(3)/mcL Lymphocytes % 17.2 % Lymphocytes Abs 2.8 0.9 - 3.2 x10(3)/mcL Monocytes % 5.7 % Monocyte Abs 0.9 0.3 - 0.9 x10(3)/mcL Eosinophils % 1.4 % Eosinophils Abs 0.2 0.0 - 0.4 x10(3)/mcL Basophils % 0.4 % Basophils Abs 0.1 0.0 - 0.1 x10(3)/mcL Immature Gran % 0.40 % Ute Gran Abs 0.06 (H) 0.00 - 0.04 x10(3)/mcL Studies: XR Shunt Series Result Date: 06/30/2023 EXAMINATION: [...] who have questions please contact the health home care physical therapist that requested your imaging first. Electronically signed by: Emerita Bernstein MD, [facility] ([phone]), at 06/30/2023 9:07 AM XR Chest One [...] who have questions please contact the health home care physical therapist that requested your imaging first. Electronically signed by: Chapin Lee MD, [facility] ([phone]), at 06/30/2023 8:41 AM SCAN DOC: TELEMETRY [...] who have questions please contact the health home care physical therapist that requested your imaging first. Electronically signed by: Kandi Duarte MD, [facility] ([phone]), at 06/28/2023 10:35 AM XR Abdomen Flat [...] who have questions please contact the health home care physical therapist that requested your imaging first. Electronically signed by: Kandi Duarte MD, [facility] ([phone]), at 06/27/2023 8:45 PM XR Abdomen 1 view (Generic) Result Date: 06/27/2023 EXAMINATION: XR ABDOMEN 1 VIEW (GENERIC) CLINICAL HISTORY: Please obtain upright. Assess for intra-abdominal pathology with recent intra-abdominal infection and new emesis/bloating. TECHNIQUE: AP abdominal radiograph (2 images) COMPARISON: CT abdomen pelvis 06/16/2023 FINDINGS: The lower abdomen andpelvis are excluded from the [id number]. Imaged bowel loops are nondilated. No free [...] who have questions please contact the health home care physical therapist that requested your imaging first. Electronically signed by: Kandi Duarte MD, [facility] ([phone]), at 06/27/2023 7:36 PM SCAN DOC: TELEMETRY [...] who have questions please contact the health home care physical therapist that requested your imaging first. Shunt Series Result Date: 06/16/2023 EXAMINATION: XR SHUNT SERIES CLINICAL HISTORY: recent revision recent revision, new abdominal pain,headache. TECHNIQUE: Multiple AP and lateral views of skull, chest, abdomen. COMPARISON: Radiographshunt series 06/09/2023 FINDINGS: Right frontal approach POINT OF CARE 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 catheter, with the intracranial portion terminating [...] gas pattern. Cholecystectomy clips Right frontal approach POINT OF CARE 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 catheter with focal discontinuity at the [...] who have questions please contact the health home care physical therapist that requested your imaging first. Electronically signed by: Kraig Rizvi MD, [facility] ([phone]), at 06/16/2023 11:[address] Head wo [...] who have questions please contact the health home care physical therapist that requested your imaging first. Shunt Series [...] who have questions please contact the health home care physical therapist that requested your imaging first. DOC: TELEMETRY STRIPS Result Date: 06/09/2023 Ordered by an unspecified provider. Request For 2nd Read CT Abdomen & Pelvis Result Date: 06/09/2023 EXAMINATION: REQUEST FOR 2ND READ CT ABDOMEN AND PELVIS CLINICAL HISTORY: abdominal pain; Sending Institution [facility]; Date of exam [id number]; I believe a reinterpretation of this exam may alter care of Patient. Yes TECHNIQUE: Reinterpretation of CT abdomen pelvis without intravenous [facility] on 06/06/2023 at 1350 hours. COMPARISON: [...] present in the left omentum. Abdominal wall: POINT OF CARE 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 is fractured in the right upper abdominalwall, (series 4 image 94). POINT OF CARE 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 catheter enters the peritoneal space through the right rectus abdominal muscle. Bilateral small fat-containing inguinal hernias. Reproductive organs: Normal. Osseous structures: No suspicious lesions. Mild degenerative changes in the lumbar spine. 1. Fractured POINT OF CARE 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 catheter in the subcutaneous tissues of [...] who have questions please contact the health home care physical therapist that requested your imaging first. Electronically signed by: Kierra Newsome MD, [facility] ([phone]), at 06/09/2023 7:[address] Head wo [...] patients who have questions please contactthe health home care physical therapist that requested your imaging first. Shunt Series [...] who have questions please contact the health home care physical therapist that requested your imaging first. Electronically signed by: Santana Jean-Baptiste MD, [facility] ([phone]), at 06/08/2023 6:47 PM Film Library- Storage Only CT Head Result Date: 06/08/2023 This exam is auto-finalizing. It's purpose is for storage only. Film Library- Storage Only CT Abdomen & Pelvis Result Date: 06/08/2023 This exam is auto-finalizing. It's purpose is for storage only. Film Library- Storage Only DX Skull Result Date: 06/08/2023 This exam is auto-finalizing. It's purpose is for storage only. Pending Studies and Lab Data: none Discharge Condition: Good Discharge to: Home with VNA Future Appointments and Orders Future Appointments and Orders Future Appointments Provider Department Dept Phone 07/09/2023 9:[address] [facility] [address] CT Scan at [facility] Arrive at: 3Z RADIOLOGY [phone] 07/09/2023 10:40 AM Cl Atkins PA Neurosurgery at [facility] Arrive at: [employer] [facility] [address]C [phone] Please dispose of unused excess opioids before your appointment or bring them with you to the appointment and we will help you dispose of them correctly. 07/15/2023 2:30 PM Valdo Awan MD Infectious Disease at [facility] Arrive at: [facility] [facility] [address] [phone] Future Orders Complete By Expires Referral to Home Health [REF34 Custom] As directed Process Instructions: If no progress note charted, please enter Clinical details in comments. Scheduling Instructions: Comments: Please evaluate Chapin Costa for admission to Home Health. [address] [facility] [address] (home) Date of : 1970 Inpatient DOCUMENTATION FOR VNA SERVICES (INCLUDING THOSE PATIENTS WITH MEDICARE COVERAGE REQUIRING HOME VNA SERVICES AND/OR HOSPICE SERVICES) PATIENT'S LOCATION: Chapin Costa [address] [facility] [address] Manager Background's Name: self; caregiver; family In discussion with the attending physician, it is certified that this patient is under their care and that they, or a Nurse Practitioner,Clinical Nurse specialist or Physician Sand Conditioner Machine who is working directly with them, had a face to face encounter that meets the physician face to face encounter requirements with this patient on 06/30/23 The encounter with the patient was in whole, or in part, for the following medical condition, whichis the primary reason for home health care services: shunted hydrocephalus In discussion with the provider, it is certified that, based on their findings, the following services are medically necessary for home health services. To provide the following care/treatments with the clinical findings supporting the need for services as follows: HOME CARE ORDERS: PT ORDERS: Continue rehab for endurance, gait stability and strength with mobility and transfers. Home safety evaluation. Home exercise program if appropriate. HOME HEALTH CARE AGENCY: [facility]. Paula Aviles [facility] [address] PHONE: [phone] FAX: [phone] Start of care: within 24 to 48 hours of discharge FOR MEDICARE ONLY: (please delete this section if not Medicare) In discussion with the attending physician, it is certified that the clinical findings support thatthis patient is homebound because absences from home require considerable and taxing effort due to:unable to drive Please note that any additional orders needs or changes will need to be obtained from this patient's PCP: MARVA [address] / [facility] [id number] All VNA agencies which cover the area of patient's residence have been reviewed, either verbally anupam writing, and patient/family have chosen the home health care agency noted Questions: Disciplines Requested: Physical Therapy Discharge Medications: Your Medications New Medications Dose Details amoxicillin-clavulanate 875-125 mg tablet Commonly known as: Augmentin Take 1 tablet by mouth 2 times daily for 28 days. 1 tablet Quantity: 56 tablet Refills: 0 calcium carbonate 200 mg calcium (500 mg) chewable tablet Commonly known as: TUMS Take 1 tablet by mouth every 6 hours as needed (Abdominal cramping). 500 mg Refills: 0 cyclobenzaprine 10 mg tablet Commonly known as: Flexeril Take 1 tablet by mouth every 8 hours as needed for Muscle spasms (abdominal and chest wall). 10 mg Quantity: 6 tablet Refills: 0 senna-docusate 8.6-50 mg Tablet Commonly known as: Pericolace Take 2 tablets by mouth 2 times daily as needed for Constipation. 2 tablet Quantity: 60 tablet Refills: 0 Continued medications with new dosing Dose Details topiramate 25 mg tablet Commonly known as: Topamax Take 1 tablet by mouth 2 times daily. What changed: when to take this 25 mg Quantity: 60 tablet Refills: 5 Continued medications, unchanged Dose Details acetaminophen 500 mg tablet Commonly known as: Tylenol Take 500 mg by mouth every 6 hours as needed. T 500 mg Refills: 0 Aimovig Autoinjector 70 [...] by mouth daily. 10 mg Refills: 0 benztropine 0.5 mg tablet Commonly known as: Cogentin Take 1 tablet by mouth nightly. 1 tablet Refills: 0 cholecalciferol (Vitamin D3) 50 mcg (2,000 unit) Capsule Take by mouth daily. Generic drug: cholecalciferol (Vitamin D3) Refills: 0 hydrOXYzine 25 mg tablet Commonly known as: Atarax Take 25 mg by mouth daily. 25 mg Refills: 0 Latuda 40 mg tablet Take 40 mg by mouth every evening. Generic drug: lurasidone 40 mg Refills: 0 levothyroxine 25 mcg tablet Commonly known as: Synthroid Take 25 mcg by mouth daily. 25 mcg Refills: 0 metoprolol succinate XL 25 mg ER 24 hr tablet Commonly known as: Toprol-XL Take 25 mg by mouth daily. 25 mg Refills: [address] capsule Commonly known as: PriLOSEC Take by mouth daily. Refills: 0 polyethylene glycoL 17 gram oral powder packet Commonly known as: Miralax Take 17 g by mouth daily as needed. 17 g Quantity: 14 each Refills: 0 rizatriptan 10 mg tablet Commonly known as: Maxalt Take 1 tablet by mouth as needed for Migraine. 10 mg Quantity: 10 tablet Refills: 0 sertraline 100 mg tablet Commonly known as: Zoloft Take 100 mg by mouth daily. 100 mg Refills: 0 testosterone cypionate 200 mg/mL Oil injection Commonly known as: DepoTESTOSTERONE Cypionate Inject 250 mg into the muscle every 14 days. 250 mg Refills: 0 Vitamin B-12 5,000 mcg Tablet, Sublingual Take by mouth daily. Generic drug: cyanocobalamin (vitamin B-12) Refills: 0 STOPPED Medications oxyCODONE 5 mg tablet Commonly known as: Roxicodone Updated Allergies/ADRs: Allergies Allergen Reactions Latex Other [...] alleviate the reaction/allergy. Vancomycin Analogues Vancomycin Hcl Commonly used phone numbers Neuro-oncology [phone] Radiation oncology [phone] Endocrinology [phone] Infectious disease [phone] Neurology [phone] Hematology/Oncology [phone] Plastic Surgery [phone] Trauma/General Surgery [phone] Urology [phone] Instructions Given to Patient at Discharge: Patient Instructions VENTRICULOPLEURAL SHUNT DISCHARGE INSTRUCTIONS PRESCRIPTION INSTRUCTIONS: Please see the medication reconciliation list on this discharge summary for a current list of your medications. [x] Continue taking the antibiotic Augmentin (amoxicillin clavulanate) twice daily until your follow up with Infectious Disease on 07/15/23 The following medications are commonly prescribed after surgery. An [x] indicates that these medications have been prescribed for you. [x] Stool softeners - Constipation relief: senna-docusate and miralax as needed Stool softeners are commonly used after surgery to help make stools easier to pass. These medications can be obtained [id number] and their use is recommended on an as needed basis for hard or difficult stools. They should be discontinued for loose stools and diarrhea. [x] Muscle Relaxers: flexaril 10mg every 8 hours as needed for muscle spasm WHEN TO SEEK MEDICAL CARE: Abdominal pain [...] You may shower and shampoo incisional site per your usual routine 4 days after surgery. DIET: - You may resume your usual [...] movements as tolerated will help prevent stiffness) DRIVING: [x] You may return to driving in 2 weeks FOLLOW UP PLAN: Future Appointments Date Time Provider Department Center 07/09/2023 9:[address] [facility] [address] [facility] [address] [facility] Rad 07/09/2023 10:40 AM Cl Atkins PA [facility] [id number] [facility] 07/15/2023 2:30 PM Valdo Awan MD [facility] ID [id number] [facility] Incision: [x] Please follow up for suture/staple removal around 07/20/23 when you follow up with Cl Atkins PA-C. Appointments: [x] Please follow up in the Neurosurgery Clinic in 4-6 weeks. Please call the Neurosurgery Office at [phone] if you do not receive a scheduled appointment within two weeks. [x] Please follow up with Cl Atkins PA-C, in 2 weeks. Your follow-up appointment will be with: [x] Dr. Jimenez HOW TO REACH NEUROSURGERY Office Hours (Thursday through Thursday 8am-5pm): Call On weekends or after office hours (after 5pm or before 8am): Call [phone] and ask the news camera operator to page the Neurosurgery Resident/Advanced Practice Provider mooner. *Your surgeon may not be call center agent (especially after office hours or on the weekend) so be ready totell about yourself and your surgery when you call. Neurosurgery Providers Adult Neurosurgery Dr. Ge Medina Pediatric Neurosurgery Dr. Tracey Lee Advanced Practice Providers Sonia Escalona, Nurse Practitioner (outpatient telehealth) Thelma Hebert, Physician Sand Conditioner Machine (inpatient/outpatient: neuro-oncology) Mirian Murrieta Physician Sand Conditioner Machine (inpatient) Claire Brody Physician Sand Conditioner Machine (inpatient) Roberto Samano, Physician Sand Conditioner Machine (inpatient) Dennis Calix, Nurse Practitioner (outpatient: pediatric) Ness Vance, Nurse Practitioner (outpatient: vascular) Mary Jessica Physician Sand Conditioner Machine (outpatient: spine) Cl Atkins, Physician Sand Conditioner Machine (outpatient) Outpatient Nurses EDWARD Knox PA documented in this encounter Discharge Instructions * Discharge Instructions* Mirian Murrieta PA - 06/18/2023 2:55 PM EDT Per the general surgery team, there is no need for outpatient follow up after removal of the catheter fragment in your abdomen. The incision is closed with absorbable sutures and surgical glue. If you have any questions for their team, please call their office at [phone]. Infectious Disease is treating your abdominal infection. They would like you to continue taking theantibiotic, Augmentin, until you see them for your follow up appointment in 3-4 weeks. -Your appointment is scheduled for 07/15/23. - Infectious Disease can be reached at [phone] for any questions Discharge Instructions For Your Abdominal Puncture Site Activity and Diet: Go Home and rest quietly for the remainder of the day. You may resume your normal activities tomorrow. Resume your usual diet after the procedure. Bandage: There is a sterile dressing over the puncture site consisting of small gauze with a clear dressing (Tegaderm). This dressing should be left in place for 24 hours. If the clear dressing becomes loose you should place tape over the edges to secure it in place. Bathing: Do not take a shower until 24 hours after your procedure; after this time you may shower with the dressing in place, then remove it and pat your skin dry. You may use a bandaid to cover the site if there is any drainage. When to call your healthcare provider: If you notice bleeding or a bulge from the puncture site, you should apply firm pressure over the site for 10-15 minutes, keeping the site covered and call your doctor. If you are still bleeding after 10-15 minutes, reapply pressure, and have someone drive you to the nearest Emergency Department, or call 911. If you develop pain, redness, drainage or swelling at or around the puncture site. If you develop fever equal to or greater than 101F and/or shaking chills. When to call the Interventional Radiology Department: Please call with any questions or concerns. If it is during regular office hours, please call [phone]. If it is after regular office hours, or on weekends or holidays, please call [phone] and ask to speak to the Turn Out mooner for Interventional Radiology. Revised 03/09/15 * Patient Instructions* Mirian Murrieta PA - 06/30/2023 12:36 PM EDT [facility] DISCHARGE INSTRUCTIONS PRESCRIPTION INSTRUCTIONS: Please see the medication reconciliation list on this discharge summary for a current list of your medications. [x] Continue taking the antibiotic Augmentin (amoxicillin clavulanate) twice daily until your follow up with Infectious Disease on 07/15/23 The following medications are commonly prescribed after surgery. An [x] indicates that these medications have been prescribed for you. [x] Stool softeners - Constipation relief: senna-docusate and miralax as needed Stool softeners are commonly used after surgery to help make stools easier to pass. These medications can be obtained [id number] and their use is recommended on an as needed basis for hard or difficult stools. They should be discontinued for loose stools and diarrhea. [x] Muscle Relaxers: flexaril 10mg every 8 hours as needed for muscle spasm WHEN TO SEEK MEDICAL CARE: Abdominal pain [...] You may shower and shampoo incisional site per your usual routine 4 days after surgery. DIET: - You may resume your usual [...] movements as tolerated will help prevent stiffness) DRIVING: [x] You may return to driving in 2 weeks FOLLOW UP PLAN: Future Appointments Date Time Provider Department Center 07/09/2023 9:[address] [facility] [address] [facility] [address] [facility] Rad 07/09/2023 10:40 AM Cl Atkins PA [facility] [place] [facility] [id number] [facility] 07/15/2023 2:30 PM Valdo Awan MD [facility] ID [id number] [facility] Incision: [x] Please follow up for suture/staple removal around 07/20/23 when you follow up with Cl Atkins PA-C. Appointments: [x] Please follow up in the Neurosurgery Clinic in 4-6 weeks. Please call the Neurosurgery Office at [phone] if you do not receive a scheduled appointment within two weeks. [x] Please follow up with Cl Atkins PA-C, in 2 weeks. Your follow-up appointment will be with: [x] Dr. Jimenez [facility] Office Hours (Thursday through Thursday 8am-5pm): Call On weekends or after office hours (after 5pm or before 8am): Call [phone] and ask the news camera operator to page the Neurosurgery Resident/Advanced Practice Provider mooner. *Your surgeon may not be call center agent (especially after office hours or on the weekend) so be ready totell about yourself and your surgery when you call. Neurosurgery Providers Adult Neurosurgery Dr. Ge Kincaid Dr. Helder E. [place] Dr. Ji-Glenn K. Adam Pediatric Neurosurgery Dr. Tracey Lee Advanced Practice Providers Sonia Escalona, Nurse Practitioner (outpatient telehealth) Thelma Hebert, Physician [employer] (inpatient/outpatient: neuro-oncology) Mirian Murrieta, Physician [employer] (inpatient) Claire Brody, Physician [employer] (inpatient) Roberto Samano, Physician [employer] (inpatient) Dennis Calix, Nurse Practitioner (outpatient: pediatric) Ness Vance, Nurse Practitioner (outpatient: vascular) Mary Jessica, Physician [employer] (outpatient: spine) Cl Atkins, Physician [employer] (outpatient) Outpatient Nurses Jose Rafael Kline RN documented in this encounter Medications at Time [...] hours as needed (Abdominal cramping). 06/30/2023 09/24/2023 cyclobenzaprine (Flexeril) 10 mg tablet Take 1 tablet by mouth every 8 hours as needed for Muscle spasms (abdominal and chest wall). 6 tablet 06/30/2023 07/02/2023 amoxicillin-clavulanate (Augmentin) 875-125 mg tablet Take 1 tablet by mouth 2 times daily for 28 days. 56 tablet 06/30/2023 07/08/2023 senna-docusate (Pericolace) 8.6-50 mg Tablet Take 2 tablets by mouth 2 times daily as needed for Constipation. 60 tablet 06/30/2023 09/24/2023 cholecalciferol, Vitamin D3, 50 mcg (2,000 unit) Capsule Take by mouth daily. 05/24/2022 07/02/2023 omeprazole (PriLOSEC) [address] capsule Take 20 mg by mouth daily. 12/18/2021 09/24/2023 Vitamin B-12 5,000 mcg Tablet, Sublingual Take 5,000 mcg by mouth daily. 05/24/2022 09/24/2023 polyethylene glycoL (Miralax) 17 gram oral powder packet Take 17 g by mouth daily as needed. 14 each 05/25/2022 09/24/2023 benztropine (Cogentin) 0.5 mg Tablet Take 1 tablet by mouth nightly. 12/01/2019 07/02/2023 acetaminophen (Tylenol) 500 mg Tablet Take 500 mg by mouth every 6 hours as needed. 10/11/2019 09/24/2023 Latuda 40 mg Tablet Take 40 mg by mouth every evening. 12/01/2019 07/02/2023 rizatriptan (MAXALT) 10 mg TabletIndications:Chroni c migraine without aura without status migrainosus, not intractable Take 1 tablet by mouth as needed for Migraine. 10 tablet 09/02/2019 09/24/2023 topiramate (TOPAMAX) 25 mg TabletIndications:Chroni c migraine without aura without status migrainosus, not intractable Take 1 tablet by mouth 2 times daily. 60 tablet 5 02/10/2019 09/24/2023 documented as of this encounter Progress Notes * Deng Fuentes RN - 06/30/2023 4:36 PM EDTSummary: Discharge Pt discharged home with family with all belongings. Discharge paperwork reviewed with paperwork, all questions answered, pt understands. * Laila Ricci MD - 06/30/2023 7:08 AM EDT [facility] Neurosurgery Progress Note Date: 06/30/2023, HD: 14 24 hour Events: -SAINA -Voiding, drinking andrei gayathri overnight, no abdominal sx and feeling very hungry -Postop imaging done -Very happy to have externalized drain out Exam: No drains General: NAD sitting up in bed awake, pleasant Neuro: AO3 Speech fluent R exotropia but EOMI Smiles symmetrically, sticks out tongue midline FC x 4 symmetrically with full strength Abdominal incision CDI with dermabond/absorbable suture, belly nontender R medial and lateral chest dressings CDI Head wrap CDI Assessment: 52 y.o. 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 Presented 06/16/23 with 2 days of abdominal drainage,subjective fevers, and one day of ALICEA. Found to have discontinuity of distal catheter with leakage of CSF out of incision. Shunt was externalized on HD0, CSF benign, patient was started on broad spectrum abx, now narrowed per ID. Abdominal fluid aspirated in IR on 06/17, cultures positive for E.faecalis. Given deeper peritoneal collection and c/f foreign material being infectious nidus, Ever is now s/p surgical removal of distal catheter from abdomen with ACS team. Now s/p replacement of distal catheter into pleural space. Recovering well. Will complete additional postop abx today and then will confirm with ID ok to discharge on PO antibiotic. PLAN/RECS: - Regular diet - ID consult, recs appreciated - currently on Unasyn from vanc/CTX (since 06/22) to be maintained while IP then Augmentin when OP - IR consult for drainage of abdominal fluid collection, f/u cultures - General Surgery consult for deeper peritoneal fluid collection, now s/p surgical removal of distal catheter, appreciate involvement - CSF cultures final negative - Ok for Q4NC - SBP 90-160 - DVT ppx with SCDs, hold SQH - F/u postop XRSS and CXR - done - Home today Labs/Imaging: Results for orders placed or performed during the hospital encounter of 06/16/23 XR Shunt Series (Exam End: 06/16/2023 11:01 AM) Result Value WORKSTATION ID [id number] Impression Right frontal approach POINT OF CARE 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 catheter with focal discontinuity at the [...] who have questions please contact the health home care physical therapist that requested your imaging first. Electronically signed by: Kraig Rizvi MD, [facility] ([phone]), at 06/16/2023 11:[address] Head wo Contrast (Generic) (Exam End: 06/16/2023 10:58 AM) Result Value WORKSTATION ID [id number] Impression Stable examination with no hydrocephalus or other acute abnormality. Thank you for letting us participate in the care of this patient. If you are a health care provider and have any questions regarding this report, please contact the number below. For patients who have questions please contact the health home care physical therapist that requested your imaging first. Electronically signed by: Eris Hicks MD, [facility] ([phone]), at 06/16/2023 11:[address] Abdomen & Pelvis w Contrast (Exam End: 06/16/2023 2:04 PM) Result Value WORKSTATION ID [id number] Impression 1. Interval revision of the shunt catheter, [...] abscess with surrounding cellulitis. Thank you for letting us participate in the care of this patient. If you are a health care provider and have any questions regarding this report, please contact the number below. For patients who have questions please contact the health home care physical therapist that requested your imaging first. Electronically signed by: Adrianne Lao MD, [facility] ([phone]), at 06/16/2023 2:49 PM XR Abdomen 1 view (Generic) (Exam End: 06/27/2023 7:16 PM) Result Value WORKSTATION ID [id number] Impression Nonobstructive bowel gas pattern with note of [...] who have questions please contact the health home care physical therapist that requested your imaging first. Electronically signed by: Kandi Duarte MD, [facility] ([phone]), at 06/27/2023 7:36 PM XR Abdomen Flat & Upright (Exam End: 06/27/2023 8:13 PM) Result Value WORKSTATION ID [id number] Impression Ileus. No perforation. No obstruction. I have [...] who have questions please contact the health home care physical therapist that requested your imaging first. Electronically signed by: Kandi Duarte MD, [facility] ([phone]), at 06/27/2023 8:[address] Abdomen & Pelvis w Contrast (Exam End: 06/28/2023 9:54 AM) Result Value WORKSTATION ID [id number] Impression 1. No new intra-abdominal or pelvic abscess. 2. Small residual soft tissue enhancement at the site of the previously described intra-abdominal abscess. 3. Decreased size of abdominal wall soft tissue abscesses. 4. Obstructing mid small bowel fecalized material. 5. Stable pulmonary nodules. Unlikely to be clinically significant in the absence of known metastatic disease. I have personally reviewed the image(s) and the resident's interpretation and agree with the findings, Kandi Duarte MD at 06/28/2023 10:35 AM Thank you for letting us participate in the care of this patient. If you are a health care provider and have any questions regarding this report, please contact the number below. For patients who have questions please contact the health home care physical therapist that requested your imaging first. Electronically signed by: Kandi Duarte MD, [facility] ([phone]), at 06/28/2023 10:35 AM Problem List: Patient Active Problem List Diagnosis Code 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 Z98.2 Persistent headaches R51.9 Headache R51.9 Cervicalgia M54.2 Seizures R56.9 Hydrocephalus G91.9 Congenital hydrocephalus Q03.9 Shunt malfunction T85.618A Laila Ricci MD Please page #[phone] with questions regarding all established patients, or #[phone] for first time consults on new patients. * Laila Ricci MD - 06/29/2023 4:57 PM EDT [facility] Neurosurgery Progress Note Date: 06/29/2023, HD: 13 24 hour Events: -POC Exam: No drains General: Waking up from anesthesia Neuro: Says name, groggy R exotropia but EOMI, tracking Smiles symmetrically, sticks out tongue midline FC x 4 symmetrically Abdominal incision CDI with dermabond/absorbable suture R medial and lateral chest dressings CDI Head wrap CDI Assessment: 52 y.o. 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 Presented 06/16/23 with 2 days of abdominal drainage,subjective fevers, and one day of ALICEA. Found to have discontinuity of distal catheter with leakage of CSF out of incision. Shunt was externalized on HD0, CSF benign, patient was started on broad spectrum abx, now narrowed per ID. Abdominal fluid aspirated in IR on 06/17, cultures positive for E.faecalis. Given deeper peritoneal collection and c/f foreign material being infectious nidus, Ever is now s/p surgical removal of distal catheter from abdomen with ACS team. Now s/p replacement of distal catheter into pleural space. Recovering in PACU. PLAN/RECS: - ADAT to regular - OR on 06/29 for V-pleural shunt, consent in chart - ID consult, recs appreciated - currently on Unasyn from vanc/CTX (since 06/22) to be maintained while IP then Augmentin when OP - Addition of Ancef x 24h postop - IR consult for drainage of abdominal fluid collection, f/u cultures - General Surgery consult for deeper peritoneal fluid collection, now s/p surgical removal of distal catheter, appreciate involvement - CSF cultures final negative - Ok for Q2NC - SBP 90-160 - DVT ppx with SCDs, hold SQH - F/u postop XRSS and CXR Labs/Imaging: Results for orders placed or performed during the hospital encounter of 06/16/23 XR Shunt Series (Exam End: 06/16/2023 11:01 AM) Result Value WORKSTATION ID [id number] Impression Right frontal approach POINT OF CARE 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 catheter with focal discontinuity at the [...] who have questions please contact the health home care physical therapist that requested your imaging first. Electronically signed by: Kraig Rizvi MD, [facility] ([phone]), at 06/16/2023 11:[address] Head wo Contrast (Generic) (Exam End: 06/16/2023 10:58 AM) Result Value WORKSTATION ID [id number] Impression Stable examination with no hydrocephalus or other acute abnormality. Thank you for letting us participate in the care of this patient. If you are a health care provider and have any questions regarding this report, please contact the number below. For patients who have questions please contact the health home care physical therapist that requested your imaging first. Electronically signed by: Eris Hicks MD, [facility] ([phone]), at 06/16/2023 11:[address] Abdomen & Pelvis w Contrast (Exam End: 06/16/2023 2:04 PM) Result Value WORKSTATION ID [id number] Impression 1. Interval revision of the shunt catheter, [...] abscess with surrounding cellulitis. Thank you for letting us participate in the care of this patient. If you are a health care provider and have any questions regarding this report, please contact the number below. For patients who have questions please contact the health home care physical therapist that requested your imaging first. Electronically signed by: Adrianne Lao MD, [facility] ([phone]), at 06/16/2023 2:49 PM XR Abdomen 1 view (Generic) (Exam End: 06/27/2023 7:16 PM) Result Value WORKSTATION ID [id number] Impression Nonobstructive bowel gas pattern with note of [...] who have questions please contact the health home care physical therapist that requested your imaging first. Electronically signed by: Kandi Duarte MD, [facility] ([phone]), at 06/27/2023 7:36 PM XR Abdomen Flat & Upright (Exam End: 06/27/2023 8:13 PM) Result Value WORKSTATION ID [id number] Impression Ileus. No perforation. No obstruction. I have [...] who have questions please contact the health home care physical therapist that requested your imaging first. Electronically signed by: Kandi Duarte MD, [facility] ([phone]), at 06/27/2023 8:[address] Abdomen & Pelvis w Contrast (Exam End: 06/28/2023 9:54 AM) Result Value WORKSTATION ID [id number] Impression 1. No new intra-abdominal or pelvic abscess. 2. Small residual soft tissue enhancement at the site of the previously described intra-abdominal abscess. 3. Decreased size of abdominal wall soft tissue abscesses. 4. Obstructing mid small bowel fecalized material. 5. Stable pulmonary nodules. Unlikely to be clinically significant in the absence of known metastatic disease. I have personally reviewed the image(s) and the resident's interpretation and agree with the findings, Kandi Duarte MD at 06/28/2023 10:35 AM Thank you for letting us participate in the care of this patient. If you are a health care provider and have any questions regarding this report, please contact the number below. For patients who have questions please contact the health home care physical therapist that requested your imaging first. Electronically signed by: Kandi Duarte MD, [facility] ([phone]), at 06/28/2023 10:35 AM Problem List: Patient Active Problem List Diagnosis Code 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 Z98.2 Persistent headaches R51.9 Headache R51.9 Cervicalgia M54.2 Seizures R56.9 Hydrocephalus G91.9 Congenital hydrocephalus Q03.9 Shunt malfunction T85.618A Laila Ricci MD Please page #[phone] with questions regarding all established patients, or #[phone] for first time consults on new patients. * Liyah Figueroa RN - 06/29/2023 4:52 PM EDT 1647 - Patient arrives via bed to PACU 11 from [facility]. Patient placed on monitor. All alarms active & audible. Report received from procedure staff. Assumed care of patient. 1713 - X-ray at bedside (portable chest). 1720 - Patient c/o small amount of pain to area around incision sites (behind right ear & rightanterior chest). Patient has been offered pain medication several times but continues to decline. 1739 - Report called to EDWARD Kwok, NSCU. Patient continues to decline any pain medication stronger than Tylenol. 1753 - Neurosurgery MD rounding on patient. 1758 - Patient transported via bed and on portable monitor to X-ray & then to Room 346A. Patient accompanied by this RN. * Laila Ricci MD - 06/29/2023 5:58 AM EDT [facility] Neurosurgery Progress Note Date: 06/29/2023, HD: 13 24 hour Events: -SANIA -Diagnosed with partial SBO over weekend in setting of one episode of emesis, none in last 24h. Having BMs, currently on IVF and is NPO. -Feeling fine this morning, no abdominal sx, feeling hungry -CSF final negative -Remains on Unasyn, afebrile, WBC 12 from 13 Exam: Externalized VPS catheter connected to collecting chamber General: NAD, sitting up awake in bed Neuro: AOx3 Conversational, speech fluent R exotropia but EOMI FS, TML No pronator drift RUE: 5/5 LUE: 5/5 RLE: 5/5 LLE: 5/5 SILTx4 R cranial incision well healed, no areas of erythema, no drainage - previously assessed R shunt externalization site at clavicle w dressing CDI Abdominal incision CDI with dermabond/absorbable suture Abdomen slightly distended but nontender and no peritoneal signs Assessment: 52 y.o. 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 Presented 06/16/23 with 2 days of abdominal drainage,subjective fevers, and one day of ALICEA. Found to have discontinuity of distal catheter with leakage of CSF out of incision. Shunt was externalized on HD0, CSF benign, patient was started on broad spectrum abx, now narrowed per ID. Abdominal fluid aspirated in IR on 06/17, cultures positive for E.faecalis. Given deeper peritoneal collection and c/f foreign material being infectious nidus, Ever is now s/p surgical removal of distal catheter from abdomen with ACS team. Currently scheduled for reinternalization of distal catheter to pleural space tomorrow. Will discuss if this is reasonable with ACS teamgiven partial SBO. PLAN/RECS: - Keep NPO + mIVF pending results of imaging, will discuss diet with ACS - OR on 06/29 for V-pleural shunt, consent in chart - Continue to drain CSF via externalized shunt. Fragile distal catheter will require extra care to make sure it does not get pulled when patient mobilizing. - ID consult, recs appreciated - currently on Unasyn from vanc/CTX (since 06/22) to be maintained while IP then Augmentin when OP - IR consult for drainage of abdominal fluid collection, f/u cultures - General Surgery consult for deeper peritoneal fluid collection, now s/p surgical removal of distal catheter, appreciate involvement - CSF cultures final negative - Ok for Q2NC - SBP 90-160 - DVT ppx with SCDs, SQH Labs/Imaging: Results for orders placed or performed during the hospital encounter of 06/16/23 XR Shunt Series (Exam End: 06/16/2023 11:01 AM) Result Value WORKSTATION ID [id number] Impression Right frontal approach POINT OF CARE 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 catheter with focal discontinuity at the [...] who have questions please contact the health home care physical therapist that requested your imaging first. Electronically signed by: Kraig Rizvi MD, [facility] ([phone]), at 06/16/2023 11:[address] Head wo Contrast (Generic) (Exam End: 06/16/2023 10:58 AM) Result Value WORKSTATION ID [id number] Impression Stable examination with no hydrocephalus or other acute abnormality. Thank you for letting us participate in the care of this patient. If you are a health care provider and have any questions regarding this report, please contact the number below. For patients who have questions please contact the health home care physical therapist that requested your imaging first. Electronically signed by: Eris Hicks MD, [facility] ([phone]), at 06/16/2023 11:[address] Abdomen & Pelvis w Contrast (Exam End: 06/16/2023 2:04 PM) Result Value WORKSTATION ID [id number] Impression 1. Interval revision of the shunt catheter, [...] abscess with surrounding cellulitis. Thank you for letting us participate in the care of this patient. If you are a health care provider and have any questions regarding this report, please contact the number below. For patients who have questions please contact the health home care physical therapist that requested your imaging first. Electronically signed by: Adrianne Lao MD, [facility] ([phone]), at 06/16/2023 2:49 PM XR Abdomen 1 view (Generic) (Exam End: 06/27/2023 7:16 PM) Result Value WORKSTATION ID [id number] Impression Nonobstructive bowel gas pattern with note of [...] who have questions please contact the health home care physical therapist that requested your imaging first. Electronically signed by: Kandi Duarte MD, [facility] ([phone]), at 06/27/2023 7:36 PM XR Abdomen Flat & Upright (Exam End: 06/27/2023 8:13 PM) Result Value WORKSTATION ID [id number] Impression Ileus. No perforation. No obstruction. I have [...] who have questions please contact the health home care physical therapist that requested your imaging first. Electronically signed by: Kandi Duarte MD, [facility] ([phone]), at 06/27/2023 8:[address] Abdomen & Pelvis w Contrast (Exam End: 06/28/2023 9:54 AM) Result Value WORKSTATION ID [id number] Impression 1. No new intra-abdominal or pelvic abscess. 2. Small residual soft tissue enhancement at the site of the previously described intra-abdominal abscess. 3. Decreased size of abdominal wall soft tissue abscesses. 4. Obstructing mid small bowel fecalized material. 5. Stable pulmonary nodules. Unlikely to be clinically significant in the absence of known metastatic disease. I have personally reviewed the image(s) and the resident's interpretation and agree with the findings, Kandi Duarte MD at 06/28/2023 10:35 AM Thank you for letting us participate in the care of this patient. If you are a health care provider and have any questions regarding this report, please contact the number below. For patients who have questions please contact the health home care physical therapist that requested your imaging first. Electronically signed by: Kandi Duarte MD, [facility] ([phone]), at 06/28/2023 10:35 AM Problem List: Patient Active Problem List Diagnosis Code 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 Z98.2 Persistent headaches R51.9 Headache R51.9 Cervicalgia M54.2 Seizures R56.9 Hydrocephalus G91.9 Congenital hydrocephalus Q03.9 Shunt malfunction T85.618A Laila Ricci MD Please page #[phone] with questions regarding all established patients, or #[phone] for first time consults on new patients. * Enriqueta Ortega RN - 06/28/2023 3:42 PM EDT OUTCOME EVALUATION NOTE: OUTCOME SUMMARY: Pt is A&Ox4. VSS. EVD in place, leveled to the clavicle. STAT CT done this morning, general surgery at bedside to discuss treatment for SBO. Mom at bedside to visit most of the day. Ambulated in hallway. PLAN MOVING FORWARD: Continue to monitor labs and VS Continue to encourage coughing and deep breathing INDIVIDUALIZED FALL PREVENTION INTERVENTIONS: Patient-specific fall risk factors per assessment: [current deficits]: EVD Assistance [level of assistance required for transfers and ambulation]: SBA Supervision [direct monitoring required during toileting and ADLs]: eyes on Surveillance [continuous indirect monitoring]: Alarms on and audible, room near nurses station, purposeful rounding Patient-specific fall prevention interventions for sensory deficits provided, if applicable: [X] N/A CARE PLAN GOAL OUTCOME EVALUATION: * Olga Clifton MD - 06/28/2023 8:52 AM EDT [facility] Neurosurgery Progress Note Date: 06/28/2023, HD: 12 24 hour Events: Recurrent nausea yesterday w episode of emesis KUB w ileus, but patient having BM so supportive care w lytes check - WNL WBC this morning, however, rising 13.6 (11.1) and patient remains w poor appetite -> CT A/P ordered Made NPO in case CT positive mIVF now on Exam: Externalized VPS catheter connected to collecting chamber General: NAD, laying awake in bed Neuro: AOx3 Conversational, speech fluent R exotropia but EOMI FS, TML No pronator drift RUE: 06/27 LUE: 06/27 RLE: 06/27 LLE: 06/27 SILTx4 R cranial incision well healed, no areas of erythema, no drainage - previously assessed R shunt externalization site at clavicle w dressing CDI Abdominal incision CDI with dermabond/absorbable suture Abdomen slightly distended but nontender and no peritoneal signs Assessment: 52 y.o. 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 Presented 06/16/23 with 2 days of abdominal drainage,subjective fevers, and one day of ALICEA. Found to have discontinuity of distal catheter with leakage of CSF out of incision. Shunt was externalized on HD0, CSF benign, patient was started on broad spectrum abx, now narrowed per ID. Abdominal fluid aspirated in IR on 06/17, cultures positive for E.faecalis. Given deeper peritoneal collection and c/f foreign material being infectious nidus, Ever is now s/p surgical removal of distal catheter from abdomen with ACS team. Ultimately we are awaiting finalization of CSF cultures to reinternalize shunt, currently scheduled for next week. PLAN/RECS: - Obtain CT A/P - Keep NPO + mIVF pending results of imaging - OR on 06/29 for V-pleural shunt may be rescheduled pending CT results - Continue to drain CSF via externalized shunt. Fragile distal catheter will require extra care to make sure it does not get pulled when patient mobilizing. - ID consult, recs appreciated - currently on Unasyn from vanc/CTX (since 06/22) to be maintained while IP then Augmentin when OP - IR consult for drainage of abdominal fluid collection, f/u cultures - General Surgery consult for deeper peritoneal fluid collection, now s/p surgical removal of distal catheter, appreciate involvement - f/u CSF cultures. NGF - Ok for Q2NC - SBP 90-160 - DVT ppx with SCDs, SQH - Ok to ADAT per ACS Labs/Imaging: Results for orders placed or performed during the hospital encounter of 06/16/23 XR Shunt Series (Exam End: 06/16/2023 11:01 AM) Result Value WORKSTATION ID [id number] Impression Right frontal approach POINT OF CARE 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 catheter with focal discontinuity at the [...] who have questions please contact the health home care physical therapist that requested your imaging first. Electronically signed by: Kraig Rizvi MD, [facility] ([phone]), at 06/16/2023 11:[address] Head wo Contrast (Generic) (Exam End: 06/16/2023 10:58 AM) Result Value WORKSTATION ID [id number] Impression Stable examination with no hydrocephalus or other acute abnormality. Thank you for letting us participate in the care of this patient. If you are a health care provider and have any questions regarding this report, please contact the number below. For patients who have questions please contact the health home care physical therapist that requested your imaging first. Electronically signed by: Eris Hicks MD, [facility] ([phone]), at 06/16/2023 11:[address] Abdomen & Pelvis w Contrast (Exam End: 06/16/2023 2:04 PM) Result Value WORKSTATION ID [id number] Impression 1. Interval revision of the shunt catheter, [...] abscess with surrounding cellulitis. Thank you for letting us participate in the care of this patient. If you are a health care provider and have any questions regarding this report, please contact the number below. For patients who have questions please contact the health home care physical therapist that requested your imaging first. Electronically signed by: Adrianne Lao MD, [facility] ([phone]), at 06/16/2023 2:49 PM XR Abdomen 1 view (Generic) (Exam End: 06/27/2023 7:16 PM) Result Value WORKSTATION ID [id number] Impression Nonobstructive bowel gas pattern with note of [...] who have questions please contact the health home care physical therapist that requested your imaging first. Electronically signed by: Kandi Duarte MD, [facility] ([phone]), at 06/27/2023 7:36 PM XR Abdomen Flat & Upright (Exam End: 06/27/2023 8:13 PM) Result Value WORKSTATION ID [id number] Impression Ileus. No perforation. No obstruction. I have [...] who have questions please contact the health home care physical therapist that requested your imaging first. Electronically signed by: Kandi Duarte MD, [facility] ([phone]), at 06/27/2023 8:45 PM Problem List: Patient Active Problem List Diagnosis Code 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 Z98.2 Persistent headaches R51.9 Headache R51.9 Cervicalgia M54.2 Seizures R56.9 Hydrocephalus G91.9 Congenital hydrocephalus Q03.9 Shunt malfunction T85.618A Olga Clifton MD Please page #[phone] with questions regarding all established patients, or #[phone] for first time consults on new patients. * Josselyn Diaz RN - 06/27/2023 9:07 PM EDT Page Sent Successfully Page Confirmation To Pager number: [phone] From Submitter: Josselyn Diaz Urgency Level: FYI Callback Number: [phone] The following Message was sent: [] - Callback:[id number] RM 346, Chapin Costa, JAMESON resulted, Illeus - Josselyn Diaz The following status was returned from the warrant server: Page for [phone] successfully sent to [phone] having status of Available. * Olga Clifton MD - 06/27/2023 8:09 AM EDT [facility] Neurosurgery Progress Note Date: 06/27/2023, HD: 11 24 hour Events: NAEON Nausea of yesterday resolved CSF cultures final negative Neuro stable Tolerating Unasyn without issue Exam: Externalized VPS catheter connected to collecting chamber General: NAD, laying awake in bed Neuro: AOx3 Conversational, speech fluent PERRL, EOMI R exotropia FS, TML No pronator drift RUE: 06/27 LUE: 06/27 RLE: 06/27 LLE: 06/27 SILTx4 R cranial incision well healed, no areas of erythema, no drainage - previously assessed R shunt externalization site at clavicle w dressing CDI Abdominal incision CDI with dermabond/absorbable suture - previously assessed Abdomen nontender - previously assessed Assessment: 52 y.o. 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 Presented 06/16/23 with 2 days of abdominal drainage,subjective fevers, and one day of ALICEA. Found to have discontinuity of distal catheter with leakage of CSF out of incision. Shunt was externalized on HD0, CSF benign, patient was started on broad spectrum abx, now narrowed per ID. Abdominal fluid aspirated in IR on 06/17, cultures positive for E.faecalis. Given deeper peritoneal collection and c/f foreign material being infectious nidus, Ever is now s/p surgical removal of distal catheter from abdomen with ACS team. Ultimately we are awaiting finalization of CSF cultures to reinternalize shunt, currently scheduled for next week. PLAN/RECS: - OR on 06/29 for V-pleural shunt -Continue to drain CSF via externalized shunt. Fragile distal catheter will require extra care to make sure it does not get pulled when patient mobilizing. - ID consult, recs appreciated - currently on Unasyn from vanc/CTX (since 06/22) to be maintained while IP then Augmentin when OP - IR consult for drainage of abdominal fluid collection, f/u cultures - General Surgery consult for deeper peritoneal fluid collection, now s/p surgical removal of distal catheter, appreciate involvement - f/u CSF cultures. NGF - Ok for Q2NC - SBP 90-160 - DVT ppx with SCDs, SQH - Ok to ADAT per ACS Labs/Imaging: Results for orders placed or performed during the hospital encounter of 06/16/23 XR Shunt Series (Exam End: 06/16/2023 11:01 AM) Result Value WORKSTATION ID [id number] Impression Right frontal approach POINT OF CARE 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 catheter with focal discontinuity at the [...] who have questions please contact the health home care physical therapist that requested your imaging first. Electronically signed by: Kraig Rizvi MD, [facility] ([phone]), at 06/16/2023 11:[address] Head wo Contrast (Generic) (Exam End: 06/16/2023 10:58 AM) Result Value WORKSTATION ID [id number] Impression Stable examination with no hydrocephalus or other acute abnormality. Thank you for letting us participate in the care of this patient. If you are a health care provider and have any questions regarding this report, please contact the number below. For patients who have questions please contact the health home care physical therapist that requested your imaging first. Electronically signed by: Eris Hicks MD, [facility] ([phone]), at 06/16/2023 11:[address] Abdomen & Pelvis w Contrast (Exam End: 06/16/2023 2:04 PM) Result Value WORKSTATION ID [id number] Impression 1. Interval revision of the shunt catheter, [...] abscess with surrounding cellulitis. Thank you for letting us participate in the care of this patient. If you are a health care provider and have any questions regarding this report, please contact the number below. For patients who have questions please contact the health home care physical therapist that requested your imaging first. Problem List: Patient Active Problem List Diagnosis Code 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 Z98.2 Persistent headaches R51.9 Headache R51.9 Cervicalgia M54.2 Seizures R56.9 Hydrocephalus G91.9 Congenital hydrocephalus Q03.9 Shunt malfunction T85.618A Olga Clifton MD Please page #[phone] with questions regarding all established patients, or #[phone] for first time consults on new patients. * Laila Ricci MD - 06/26/2023 5:44 AM EDT [facility] Neurosurgery Progress Note Date: 06/26/2023, HD: 10 Assessment: 52 y.o. 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 Presents with 2 days of abdominal drainage, subjective fevers, and one day of ALICEA. Found to have discontinuity of distal catheter with leakage of CSF out of incision. Shunt was externalized on HD0, CSF benign, patient was started on broad spectrum abx, now narrowed per ID. Abdominal fluid aspirated in IR on 06/17, cultures positive for E.faecalis. Given deeper peritoneal collection and c/f foreign material being infectious nidus, Ever is now s/p surgical removal of distal catheter from abdomen with ACS team. Ultimately we are awaiting finalization of CSF cultures to reinternalize shunt, currently scheduled for next week. Will monitor nausea this morning - if responds to PRNs and able to eat, nothing further to do. If persistent can start with labs and KUB. PLAN/RECS: - Continue to drain CSF via externalized shunt. Fragile distal catheter will require extra care to make sure it does not get pulled when patient mobilizing. - ID consult for abx guidance and to help determine timing/location for distal catheter reimplantation surgery/how long to await final culture growth. - IR consult for drainage of abdominal fluid collection, f/u cultures - General Surgery consult for deeper peritoneal fluid collection, now s/p surgical removal of distal catheter, appreciate involvement - f/u CSF cultures. NGTD so far. - Ok for Q2NC - SBP 90-160 - DVT ppx with SCDs, SQH - Ok to ADAT per ACS 24 hour Events: NAEON No complaints, awaiting surgery 06/29 Dressing feeling itchy on chest Having some nausea, just had PRNs, would like to try and eat breakfast Exam: General: NAD, laying awake in bed Neuro: AOx3 Conversational, speech fluent PERRL, EOMI R exotropia FS, TML No pronator drift RUE: 06/27 LUE: 06/27 RLE: 06/27 LLE: 06/27 SILTx4 R cranial incision well healed, no areas of erythema, no drainage Abdominal incision CDI with dermabond/absorbable suture Abdomen nontender Drains: Patent VPS catheter with clear output. Dressing on R chest is dry, changed today per patient wishes Labs/Imaging: Reviewed in Epic. Problem List: Patient Active Problem List Diagnosis Code 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 Z98.2 Persistent headaches R51.9 Headache R51.9 Cervicalgia M54.2 Seizures R56.9 Hydrocephalus G91.9 Congenital hydrocephalus Q03.9 Shunt malfunction T85.618A Laila Ricci MD Please page #[phone] with questions regarding all established patients, or #[phone] for first time consults on new patients. * Jason Arreguin RN - 06/25/2023 5:49 PM EDT Patient remains alert and oriented x4. VSS on RA. NSR on tele. Patient denies pain. Externalized shunt remains in place; open at 0cm, leveled at clavicle. Patient continues to have good PO intake. Ambulating intermittently up in hallway, to BR. Problem: Adult Inpatient Plan of Care Goal: [...] Injury Outcome: Ongoing (Interventions Implemented as Appropriate) Problem: Infection Goal: Absence of Infection Signs and Symptoms Outcome: Ongoing (Interventions Implemented as Appropriate) Problem: Pain Acute Goal: Acceptable Pain Control and Functional Ability Outcome: Ongoing (Interventions Implemented as Appropriate) * Laila Ricci MD - 06/25/2023 7:15 AM EDT [facility] Neurosurgery Progress Note Date: 06/25/2023, HD: 9 Assessment: 52 y.o. 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 Presents with 2 days of abdominal drainage, subjective fevers, and one day of ALICEA. Found to have discontinuity of distal catheter with leakage of CSF out of incision. Shunt was externalized on HD0, CSF benign, patient was started on broad spectrum abx, now narrowed per ID. Abdominal fluid aspirated in IR on 06/17, cultures positive for E.faecalis. Given deeper peritoneal collection and c/f foreign material being infectious nidus, Ever is now s/p surgical removal of distal catheter from abdomen with ACS team. Ultimately we are awaiting finalization of CSF cultures to reinternalize shunt, currently scheduled for next week. PLAN/RECS: - Continue to drain CSF via externalized shunt. Fragile distal catheter will require extra care to make sure it does not get pulled when patient mobilizing. - ID consult for abx guidance and to help determine timing/location for distal catheter reimplantation surgery/how long to await final culture growth. - IR consult for drainage of abdominal fluid collection, f/u cultures - General Surgery consult for deeper peritoneal fluid collection, now s/p surgical removal of distal catheter, appreciate involvement - f/u CSF cultures. NGTD so far. - Ok for Q2NC - SBP 90-160 - DVT ppx with SCDs, SQH - Ok to ADAT per ACS 24 hour Events: NAEON No complaints, looking forward to surgery next week Exam: General: NAD, laying awake in bed Neuro: AOx3 Conversational, speech fluent PERRL, EOMI R exotropia FS, TML No pronator drift RUE: 06/27 LUE: 06/27 RLE: 06/27 LLE: 06/27 SILTx4 R cranial incision well healed, no areas of erythema, no drainage Abdominal incision CDI with dermabond/absorbable suture Abdomen nontender Drains: Patent VPS catheter with clear output. Dressing on R chest is dry. Labs/Imaging: Reviewed in Epic. Problem List: Patient Active Problem List Diagnosis Code 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 Z98.2 Persistent headaches R51.9 Headache R51.9 Cervicalgia M54.2 Seizures R56.9 Hydrocephalus G91.9 Congenital hydrocephalus Q03.9 Shunt malfunction T85.618A Laila Ricci MD Please page #[phone] with questions regarding all established patients, or #[phone] for first time consults on new patients. * Shagufta Santo, RD - 06/24/2023 8:56 AM EDT Nutrition Initial Note Chapin Costa is a 52 y.o. 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 Presents with 2 days of abdominal drainage, subjective fevers, and one day of ALICEA. Reason for Assessment: Other (see comments) (Hospital length of stay) Nutrition Recommendations: Regular diet ONS available upon request Record % PO intake Monitor and replete lytes as indicated Weekly weights appreciated - pended Current Nutrition Regimen: Active Orders Diet Regular diet Frequency: Effective Now Number of Occurrences: Until Specified Assessment: Lab Results Component Value Date NA 140 06/23/2023 K 4.1 06/23/2023 CL 106 06/23/2023 CO2 20 (L) 06/23/2023 BUN 18 06/23/2023 CREATININE 1.22 06/23/2023 ESTGFR 72 06/23/2023 MAGNESIUM 0.94 06/23/2023 CALCIUM 9.3 06/23/2023 PHOS 2.9 06/23/2023 AST 14 06/08/2023 ALT 19 06/08/2023 ALKPHOS 109 06/08/2023 BILITOT 0.7 06/08/2023 CRP 107.8 (H) 06/16/2023 No results found for: POCGLU Patient Lines/Drains/Airways Status Active Nutritional LDAs Name Placement date Placement time Site Days PIV 06/18/23 0645 20 gauge basilic vein (medial side of arm), right 06/18/23 0645 -- 6 EVD (External Ventricular Drain) 06/16/23 1900 06/16/23 1900 -- 8 Oxygen Therapy / Airway Device: None (Room air) Shift Pressure Injury Prevention Occiput: No Injury Thoracic Spine: No Injury Sacral: No Injury Ischial - left: No Injury Ischial - right: No Injury Heel - left: No Injury Heel - right: No Injury Elbow - left: No Injury Elbow - right: No Injury Device Sites: BP Cuff, ECG Leads, IV sites, O2 sat monitor Other Sites: externalized shunt Last Bowel Movement: 06/21/23 Intake/Output Summary (Last 24 hours) at 06/24/2023 0857 Last data filed at 06/24/2023 0800 Gross per 24 hour Intake 2016 ml Output 1218 ml Net 798 ml Relevant medications: Protonix, pericolace Anthropometrics: Admit Weight: Estimated body mass index is 25.82 kg/m?? as calculated from the following: Height as of 06/09/23: 167.6 cm (5' 6). Weight as of 06/09/23: 72.6 kg (160 lb). Usual Body Weight: 160 lbs Wt Readings from Last 10 Encounters: 06/09/23 72.6 kg (160 lb) 10/13/22 95.1 kg (209 lb 10.5 oz) 09/08/22 94.6 kg (208 lb 9.6 oz) 08/21/22 88.4 kg (194 lb 14.4 oz) 08/21/22 94.1 kg (207 lb 6.4 oz) 08/19/22 93.9 kg (207 lb) 06/10/22 94.9 kg (209 lb 3.2 oz) 05/23/22 88.5 kg (195 lb 1.7 oz) 05/26/22 88.5 kg (195 lb) 10/18/20 88.5 kg (195 lb) No data found. Estimated / Assessed Needs: Kcal / K - 1815 Kcal (20 Kcal/Kg - 25 Kcal/Kg) ABW 72.6 kg Estimated Protein Needs: 65 g - 77 g (1.0 g/Kg - 1.2 g/Kg) IBW 64.5 kg Nutrition intake and intake history / interview: 06/23: Patient screened for hospital length of stay nutrition visit, advertising writer met with Ever at bedside. Ever reports good appetite, eating 100% of meals (confirmed in flowsheets). 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 Per nutrition software, pt has orderedan average of 1953 kcal/day and 69g/day protein over the last 3 days, meeting estimated needs. He notes UBW 160 lbs and feels that he has not had any changed in weight recently. NFPE performed, malnutrition not identified. Nutrition Focused Physical Exam: Performed (06/24/23 by HD) . Subcutaneous Fat Loss Orbital region: None present Upper arm region (triceps/biceps): None present Lean Muscle Loss Caodaism region (temporalis muscle): None present Clavicle bone region (pectoralis major): None present Dorsal hand (interosseous muscle): None present Shoulder (deltoid): None present Scapular bone region (latissimus dorsi, trapezius muscles): Not assessed Thigh region (quadriceps muscle): None present Posterior calf region (gastrocnemius muscle): None present Malnutrition Diagnosis: Not identified (Norberto JPEN J Parenteral Enteral Nutr. 2011; 36(3): 273-83) Nutrition to continue to follow up while inpatient Shagufta Mendez MS, RDN, LD Clinical Nutrition * Laila Ricci MD - 06/24/2023 5:28 AM EDT [facility] Neurosurgery Progress Note Date: 06/24/2023, HD: 8 Assessment: 52 y.o. 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 Presents with 2 days of abdominal drainage, subjective fevers, and one day of ALICEA. Found to have discontinuity of distal catheter with leakage of CSF out of incision. Shunt was externalized on HD0, CSF benign, patient was started on broad spectrum abx, now narrowed per ID. Abdominal fluid aspirated in IR on 06/17, cultures positive for E.faecalis. Given deeper peritoneal collection and c/f foreign material being infectious nidus, Ever is now s/p surgical removal of distal catheter from abdomen with ACS team. Ultimately we are awaiting finalization of CSF cultures to reinternalize shunt, currently scheduled for next week. PLAN/RECS: - Continue to drain CSF via externalized shunt. Fragile distal catheter will require extra care to make sure it does not get pulled when patient mobilizing. - ID consult for abx guidance and to help determine timing/location for distal catheter reimplantation surgery/how long to await final culture growth. - IR consult for drainage of abdominal fluid collection, f/u cultures - General Surgery consult for deeper peritoneal fluid collection, now s/p surgical removal of distal catheter, appreciate involvement - f/u CSF cultures. NGTD so far. - Ok for Q2NC - SBP 90-160 - DVT ppx with SCDs, SQH - Ok to ADAT per ACS 24 hour Events: NAEON No complaints Exam: General: NAD, laying awake in bed Neuro: AOx3 Conversational, speech fluent PERRL, EOMI R exotropia FS, TML No pronator drift RUE: 5/5 LUE: 5/5 RLE: 5/5 LLE: 5/5 SILTx4 R cranial incision well healed, no areas of erythema, no drainage Abdominal incision CDI with dermabond/absorbable suture Abdomen nontender Drains: Patent VPS catheter with clear output. Dressing on R chest is dry. Labs/Imaging: Reviewed in Epic. Problem List: Patient Active Problem List Diagnosis Code 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 Z98.2 Persistent headaches R51.9 Headache R51.9 Cervicalgia M54.2 Seizures R56.9 Hydrocephalus G91.9 Congenital hydrocephalus Q03.9 Shunt malfunction T85.618A Laila Ricci MD Please page #[phone] with questions regarding all established patients, or #[phone] for first time consults on new patients. * Stacy Adamson MD - 06/23/2023 11:53 AM EDT INFECTIOUS DISEASE FOLLOW-UP NOTE Active ID Issue(s): Intra-abdominal infection Current Antimicrobial(s): Unasyn Interval History/Subjective: Patient denies any fevers or chills. Is planned for shunt internalization on Thursday. 10-point ROS: negative except what is stated above. Physical Exam: Last value Range last 24 hrs Temperature Temp: 36.8 ??C (98.3 ??F) Temp: [36.5 ??C (97.7 ??F)-36.8 ??C (98.3 ??F)] Heart Rate Heart Rate: 75 Heart Rate: [66-85] Blood Pressure BP: 117/81 BP: (110-141)/(71-95) Respiratory Rate Resp: 17 Resp: [10-22] SpO2 SpO2: 93 % SpO2: [91 %-98 %] General: no acute distress Head: normocephalic, atraumatic EENT: No conjunctival petechiae Neck: No LAD Cardiovascular: RRR, no murmur, rubs, or gallops. Chest wall with EVD Pulmonary: Lungs clear to auscultation bilaterally; no wheezing, rhonchi, or rales Abdomen: Soft, non-tender, non-distended, incision healing well Ext: No deformity Skin: No rash on visible skin Neuro: A&O, moves all 4 extremities spontaneously Psych: Euthymic, pleasant I have reviewed available microbiology, laboratory, imaging/radiology/diagnostics. Laboratory: Recent Labs 06/23/23 0530 06/22/23 0420 06/21/23 0222 WBC 10.4* 11.1* 10.3* HGB 17.5* 17.3* 17.8* HCT 50.2* 49.8* 51.9* PLATELET 231 233 244 Recent Labs 06/23/23 0528 06/22/23 0410 06/22/23 0310 NA 140 135 136 K 4.1 4.1 4.2 CL 106 103 104 CO2 20* 20* 20* BUN 18 19 18 CREATININE 1.22 1.21 1.21 No results for input(s): AST, ALT, ALKPHOS, BILITOT, BILIDIR in the last 168 hours. 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 Per workup CT abdomen and pelvis revealed shunt catheter with the tip in the left mid abdomen retracted with a new intraperitoneal fluid collection adjacent to the catheter tip. Moderate inflammationin the right upper quadrant and at 3.3 cm fluid collection in the area suspicious for an abscess with surrounding cellulitis. CSF analysis nonsuggestive of acute inflammatory/infectious process. CSF shunt cultures NGTD. Patient was started on broad-spectrum antimicrobials and shunt was externalized. ID recommended to narrow antimicrobials to vancomycin + ceftriaxone (patient has tolerated cephalosporins in the past) given no complaint evidence of shunt infection and recommended drainage of abdominal abscess, which was done (IR guided aspiration, no drain placed given small size) on 06/16. Currently cultures growing Enterococcus faecalis. Patient also went to the OR on 06/19 for removal of distal/intra-abdominal POINT OF CARE 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 catheter--removed 7.5 cm of the cephalad portion of the shunt. Path sent. In regards of timing for reinternalizing POINT OF CARE 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, ok to revise at this time. For antibiotics, patient tolerated test dose of amoxicillin, hence he is being switched over to Unasyn from today. Recommend to continue Unasyn while in-house and then switch over to Augmentin at the time of discharge (choosing Augmentin to cover for E faecalis and other anaerobes which did not grow possibly because patient was already exposed to multiple antibiotics prior to cultures). Complete a 3 to 4-week course, then follow-up with ID with repeat imaging. RECOMMENDATIONS: -Please begin ampicillin sulbactam 3 g IV every 6 hours. Discontinue vancomycin and ceftriaxone. -Continue ampicillin sulbactam while in-house and switch to Augmentin 875-125 mg p.o. twice daily for 3 to 4 weeks. Follow-up with ID with repeat abdominal imaging after 3 to 4 weeks. -Okay to revise POINT OF CARE 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 at this time -Rest of the care per primary team Patient discussed with ID attending Dr. Armijo. Thank you for the consult. ID consult service will sign off. Please do not hesitate to page with any questions or concerns. Please page ID Green team (pager [phone]) with questions or concerns. Stacy Adamson MD Fellow, Infectious Disease Pager: [phone] Epic Chat 06/23/2023 Associated attestation - Memo Armijo MD - 06/23/2023 9:16 PM EDT Attending Addendum: I have seen and examined the patient, reviewed the data and agree with the note by Dr. Adamson. * Main Trevino MD - 06/23/2023 6:30 AM EDT [facility] Neurosurgery Progress Note Date: 06/23/2023, HD: 7 Assessment: 52 y.o. 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 Presents with 2 days of abdominal drainage, subjective fevers, and one day of ALICEA. Found to have discontinuity of distal catheter with leakage of CSF out of incision. Shunt was externalized on HD0, CSF benign, patient was started on broad spectrum abx, now narrowed per ID. Abdominal fluid aspirated in IR on 06/17, cultures positive for e. Faecalis. Given deeper peritoneal collection and c/f foreign material being infectious nidus, Ever is now s/p surgical removal of distal catheter from abdomen with ACS team. Ultimately we are awaiting finalization of CSF cultures to reinternalize shunt. PLAN/RECS: - Continue to drain CSF via externalized shunt. Fragile distal catheter will require extra care to make sure it does not get pulled when patient mobilizing. - ID consult for abx guidance and to help determine timing/location for distal catheter reimplantation surgery/how long to await final culture growth. - IR consult for drainage of abdominal fluid collection, f/u cultures - General Surgery consult for deeper peritoneal fluid collection, now s/p surgical removal of distal catheter, appreciate involvement - f/u CSF cultures. NGTD so far. - Ok for Q2NC - SBP 90-160 - DVT ppx with SCDs, SQH - Ok to ADAT per ACS 24 hour Events: NAEON Seen by ID Exam: General: NAD Neuro: AOx3 Conversational, speech fluent PERRL, EOMI R exotropia FS, TML No pronator drift RUE: 5/5 LUE: 5/5 RLE: 5/5 LLE: 5/5 SILTx4 R cranial incision well healed, no areas of erythema, no drainage Abdominal incision CDI with dermabond/absorbable suture Abdomen nontender Drains: Patent VPS catheter with clear output. Dressing on R chest is dry. Labs/Imaging: Reviewed in Epic. Problem List: Patient Active Problem List Diagnosis Code 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 Z98.2 Persistent headaches R51.9 Headache R51.9 Cervicalgia M54.2 Seizures R56.9 Hydrocephalus G91.9 Congenital hydrocephalus Q03.9 Shunt malfunction T85.618A Main Trevino MD Please page #[phone] with questions regarding all established patients, or #[phone] for first time consults on new patients. * Carley Sun, [facility] - 06/22/2023 4:42 PM EDT Images from the original note were not included. Inpatient Penicillin & Cephalosporin Allergy Treatment Guidelines Does the patient have an allergy to penicillins, cephalosporins, or both? Penicillins Allergy Only PENICILLIN ALLERGY ONLY DECISION TREE This guideline is intended for use in patients with penicillin allergy who do not have a comorbid cephalosporin allergy. These guidelines include the most common beta lactams and are not a comprehensive list of all available options. For the following questions,select the option corresponding to the patient???s answer. Since the reaction occurred, has the patient tolerated a penicillin or penicillin derivative (e.g. amoxicillin, augmentin, piperacillin-tazobactam / Zosyn)? No or Unknown, yet pt received an outpatient prescription for cephalexin in 2006 which he reports taking for a throat infection. He states he tolerated this without issue. He also states he think he may have taken amoxicillin as a child afterhis reported penicillin allergy, also without issue. YES / NO / UNKNOWN Was the patient???s reaction within the past year? No or Unknown (0 points) Did the patient???s reaction involve any systemic symptoms other than a rash or other skin symptoms? No or Unknown (0 points) Was the patient???s reaction life-threatening (i.e. severe anaphylaxis requiring epinephrine, emergency room visit, hospitalization, intubation)? No or Unknown (0 points) Did the patient???s reaction involve blistering, ulceration, sloughing of the skin or lining of themouth, eyes, genitals - OR - diagnosed with Bryant Woody Syndrome or Toxic Epidermal Necrolysis?No or Unknown (0 points) Did the patient???s reaction involve any organ dysfunction/failure - OR - was the patient diagnosedwith serum sickness, drug reaction with eosinophilia (DRESS/DIHS), acute interstitial nephritis? Noor Unknown (0 points) Add the point total from the answers above to calculate the patient's penicillin allergy risk assessment score: Score 0 Reference the charts below to determine treatment options based on likelihood of drug cross-reactivity. To Give a Test Dose: Search eD-H SmartSets for ???Adult IP Test Dose?? and choose desired drug order set. Amoxicillin test dose is a single dose of 250mg followed by 1 hour of monitoring. All other test dose protocols are 10% of the full dose, followed by 30 minutes of monitoring, then remainder of dose followed by 1 hour of monitoring. Penicillins Cephalosporin: Similar Side Chain (X = crossreactivity present) Cephalosporin: Different Side Chain (Blank = crossreactivity unlikely) Low risk. Give Test Dose. Low risk. Give Test Dose. No increased risk. Give Full dose. Assessment: -Patient reports taking penicillin IV as a child [...] the medication. He does not recall receiving an y other treatment (e.g. epinephrine, antihistamines) at the time. He states he may have received amoxicillin as a child after this penicillin reaction, without issue. He also confirms he took an outpatient prescription for cephalexin in 2006 for a throat infection without issue (Rx noted in chart).Both these agents share side chains with penicillin suggesting that he does not remain allergic to penicillin at this point. Plan: -Give test dose of amoxicillin 250mg PO x1 now. Continue other IV antibiotics (ceftriaxone, vancomycin). If patient tolerates amoxicillin without issue for 1 hour, it is ok to transition to ampicillin-sulbactam 3G IV Q6h per [facility] team recs. This assess risk of immediate hypersensitivity reaction. There remains a small risk the patient may develop a delayed hypersensitivity reaction (e.g. maculopapular rash) on penicillin antibiotics in the future. -Pt understands the risks/benefits and verbally consented to test dose. Pt educated that he is unlikely to remain allergic to penicillin, yet we will proceed with oral amox test dose as a conservative approach. All other questions were answered. -Allergy tab updated with information above. -Additional beta-lactam allergy information and job aid link provided below. Beta Lactam Cross-reactivity Chart (Quick Reference). For detailed recommendations, use the treatment algorithm/questionnaire above OR refer to the job aide and nursing protocol below. Penicillin and Cephalosporin Allergy Test Dose / Drug Challenge - Nursing Procedure Penicillin and Cephalosporin Allergy Treatment Job Aid Case d/w [facility] team (Drs. Arimjo, Juan Diego). They agree with the plan above. For any additional questions, please contact me at the info below. Thank you for the opportunity to assist in this patient's care. Carley Sun, PharmD, MS Clinical Pharmacist Lead - Infectious Disease [facility] [phone] Pager [phone] [facility] Secure Chat * Stacy Adamson MD - 06/22/2023 8:32 AM EDT INFECTIOUS DISEASE FOLLOW-UP NOTE Active ID Issue(s): Intra-abdominal infection Current Antimicrobial(s): Vancomycin Ceftriaxone Interval History/Subjective: Patient denies any fevers or chills. No abdominal pain. Discussed with patient about potentially switching him over to a different antibiotic-likely penicillin. States that he had rash/hives to penicillin when he was younger. Does not remember if he had anaphylaxis. Please refer to Carley Sun's note for details. 10-point ROS: negative except what is stated above. Physical Exam: Last value Range last 24 hrs Temperature Temp: 36.8 ??C (98.3 ??F) Temp: [36.6 ??C (97.9 ??F)-36.9 ??C (98.4 ??F)] Heart Rate Heart Rate: 75 Heart Rate: [67-89] Blood Pressure BP: 125/81 BP: (109-144)/(76-101) Respiratory Rate Resp: 16 Resp: [13-21] SpO2 SpO2: 95 % SpO2: [91 %-96 %] General: no acute distress Head: normocephalic, atraumatic EENT: No conjunctival petechiae Neck: No LAD Cardiovascular: RRR, no murmur, rubs, or gallops. Chest wall with EVD Pulmonary: Lungs clear to auscultation bilaterally; no wheezing, rhonchi, or rales Abdomen: Soft, non-tender, non-distended, incision healing well Ext: No deformity Skin: No rash on visible skin Neuro: A&O, moves all 4 extremities spontaneously Psych: Euthymic, pleasant I have reviewed available microbiology, laboratory, imaging/radiology/diagnostics. Laboratory: Recent Labs 06/22/23 0420 06/21/23 0222 06/20/23 0516 WBC 11.1* 10.3* 10.9* HGB 17.3* 17.8* 17.6* HCT 49.8* 51.9* 51.5* PLATELET 233 244 253 Recent Labs 06/22/23 0410 06/22/23 0310 06/21/23 0222 NA 135 136 137 K 4.1 4.2 4.2 CL 103 104 104 CO2 20* 20* 20* BUN 19 18 17 CREATININE 1.21 1.21 1.16 No results for input(s): AST, ALT, ALKPHOS, BILITOT, BILIDIR in the last 168 hours. 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 Per workup CT abdomen and pelvis revealed shunt catheter with the tip in the left mid abdomen retracted with a new intraperitoneal fluid collection adjacent to the catheter tip. Moderate inflammationin the right upper quadrant and at 3.3 cm fluid collection in the area suspicious for an abscess with surrounding cellulitis. CSF analysis nonsuggestive of acute inflammatory/infectious process. CSF shunt cultures NGTD. Patient was started on broad-spectrum antimicrobials and shunt was externalized. ID recommended to narrow antimicrobials to vancomycin + ceftriaxone (patient has tolerated cephalosporins in the past) given no complaint evidence of shunt infection and recommended drainage of abdominal abscess, which was done (IR guided aspiration, no drain placed given small size) on 06/16. Currently cultures growing Enterococcus faecalis. Patient also went to the OR on 06/19 for removal of distal/intra-abdominal POINT OF CARE 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 catheter--removed 7.5 cm of the cephalad portion of the shunt. Path sent. In regards of timing for reinternalizing POINT OF CARE 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, If CSF remains negative it would be reasonable to replace shunt to pleural space as the infection seems limited to the abdomen. For antibiotics, we planned for test dose of amoxicillin. If he is able to tolerate that, will add ampicillin sulbactam and eventually switch over to an oral regimen RECOMMENDATIONS: -Please refer to Carley Sun's note for penicillin test dose -If patient is able to tolerate amoxicillin test dose as per the guidelines/protocol, would recommend to discontinue vancomycin + ceftriaxone and switch to ampicillin sulbactam 3 g IV every 6 hours. -In regards of timing for reinternalizing POINT OF CARE 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, If CSF remains negative it would be reasonable to replace shunt to pleural space as the infection seems limited to the abdomen. -Duration and p.o. choice of antibiotics TBD tomorrow -Rest of the care per primary team Patient discussed with ID attending Dr. Armijo. Thank you for the consult. ID consult service will sign off. Please do not hesitate to page with any questions or concerns. Please page ID Green team (pager [phone]) with questions or concerns. Stacy Adamson MD Fellow, Infectious Disease Pager: [phone] Epic Chat 06/22/2023 Associated attestation - Memo Armijo MD - 06/22/2023 8:58 PM EDT Attending Addendum: I have seen and examined the patient, reviewed the data and agree with the note by Dr. Adamson. OK to revise shunt. I do not think he had complete drainage of his abdominal abscess and he had antecedent antibiotics. Thus, I would do the amoxicillin test dose and change to unasyn followed by augmentin. Will need to follow collection to see that it resolves. * Laila Ricci MD - 06/22/2023 6:05 AM EDT [facility] Neurosurgery Progress Note Date: 06/22/2023, HD: 6 Assessment: 52 y.o. 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 Presents with 2 days of abdominal drainage, subjective fevers, and one day of ALICEA. Found to have discontinuity of distal catheter with leakage of CSF out of incision. Shunt was externalized on HD0, CSF benign, patient was started on broad spectrum abx, now narrowed to Vanc and CTX per ID. Abdominal fluid aspirated in IR on 06/17, cultures pending but so far reassuring. Given deeper peritoneal collection and c/f foreign material being infectious nidus, Ever is now s/p surgical removal of distal catheter from abdomen with ACS team. Ultimately we are awaiting finalization of CSF cultures to reinternalize shunt. OR cultures from abdomen now growing E.faecalis, appreciate ID recommendations on abx and timing/location of reinternalization. PLAN/RECS: - Continue to drain CSF via externalized shunt. Fragile distal catheter will require extra care to make sure it does not get pulled when patient mobilizing. - ID consult for abx guidance and to help determine timing/location for distal catheter reimplantation surgery/how long to await final culture growth. - IR consult for drainage of abdominal fluid collection, f/u cultures - General Surgery consult for deeper peritoneal fluid collection, now s/p surgical removal of distal catheter, appreciate involvement - Continue IV abx for now, currently on CTX and Vanc - f/u CSF cultures. NGTD so far. - Ok for Q2NC - SBP 90-160 - DVT ppx with SCDs, SQH - Ok to ADAT per ACS 24 hour Events: NAEON CSF and IR fluid NGTD OR abdominal cultures growing E.faecalis, remains on Vanc/CTX Denies abdominal pain or headache Asking about when he can have his shunt back Exam: General: NAD HEENT: Normocephalic Cards: RRR on monitor Pulmonary: Nonlabored breathing Neuro: AOx3 Conversational, speech fluent PERRL, EOMI R exotropia FS, TML No pronator drift RUE: 06/27 LUE: 06/27 RLE: 06/27 LLE: 06/27 SILTx4 R cranial incision well healed, no areas of erythema, no drainage Abdominal incision CDI with dermabond/absorbable suture Abdomen nontender Drains: Patent VPS catheter with clear output. Dressing on R chest is dry. Labs/Imaging: Reviewed in [facility]. Problem List: Patient Active Problem List Diagnosis Code 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 Z98.2 Persistent headaches R51.9 Headache R51.9 Cervicalgia M54.2 Seizures R56.9 Hydrocephalus G91.9 Congenital hydrocephalus Q03.9 Shunt malfunction T85.618A Laila Ricci MD Please page #[phone] with questions regarding all established patients, or #[phone] for first time consults on new patients. * Mary Hall MD - 06/21/2023 4:40 PM EDT Infectious Diseases Consultation Progress Note Major 24 Hour Events / Subjective: Taken to the OR on 06/19 for removal of the distal/intra-abdominal POINT OF CARE 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 catheter 30cm in length,removed 7.5cm of the cephalad portion of the shunt. Abdominal fluid cultures from 06/17 now with E.faecalis. New Notable Labs/Micro: All labs reviewed, notable for the following: Labs: 06/20 WBC 10.3 Cr 1.16 Micro: 06/17 fluid culture - rare Enterococcus faecalis New Notable Imaging/Studies: All radiographic and other studies reviewed, notable for the following: EKG/Echo - reviewed Imaging - reviewed Procedures - reveiwed External Records in [facility] - reviewed. Impression & Recommendations: 52 year-old male with a PMH of congenital hydrocephalus secondary to aqueductal stenosis with recent distal shunt revision on 06/07, and subsequent readmission on 06/[address] fever[address] CT abdomen and pelvis revealed shunt catheter with the tip in the left mid abdomen retracted with a new intraperitoneal fluid collection adjacent to the catheter tip. Started empirically on clindamycin, meropenem and vancomycin and shunt was externalized. Due to the two intraabdominal collections that most likely represented abscesses in the setting of recent POINT OF CARE 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 revision he was continued on vancomycin and ceftriaxone. Taken to the OR on 06/19 for removal of the distal/intra-abdominal POINT OF CARE 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 cath eter 30cm in length, removed 7.5cm of the cephalad portion of the shunt. Abdominal fluid cultures from 06/17 now with E.faecalis, unfortunately he has a history of anaphylaxis with penicillin so whilewe considered a switch to ampicillin-sulbactam this will not be possible. For now we will continue current antibiotics with possible switch to orals in the coming days. If CSF remains negative it would be reasonable to replace shunt to pleural space as the infection seems limited to the abdomen. Recommendations: -Please continue vancomycin and ceftriaxone -Will likely switch to oral regimen in the coming days -Check at least weekly CBC and CMP to monitor for antibiotic toxicities Recommendations shared with primary team. Thank you for the consultation, we will continue to follow along. Please page [phone] with any questions. Uriel Roy MD Infectious Disease Fellow 06/21/23 ID ATTENDING I have seen the patient, reviewed the chart as well as the documentation as written by Dr. Roy. The assessment and plan were formulated in discussion with me and I agree with them as documented. Mary Hall MD Infectious Diseases * Vivian Lawson MD - 06/21/2023 9:07 AM EDT Acute Care Surgery Inpatient Consult Progress Note Admission Date: 06/16/2023 Primary Team: RADHIKA ID: Chapin Jarrod Costa is a 52 y.o. 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 Now admitted due to CSF leak from abdominal incision with slightly elevated WBC from his usual chronic leukocytosis and CT findings concerning for x2 fluid collections which could represent abscess vs sterile CSF. S/p externalization ofthe shunt with CSF cultures in process. IR has since aspirated the superficial fluid collection. General surgery was consulted for management of the intra-abdominal fluid collection. Procedures: 06/16/23: externalization of POINT OF CARE 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 (NSGY) 06/20/23: OR for removal of the distal/intra-abdominal POINT OF CARE 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 catheter 30cm in length, removed 7.5cm of the cephalad portion of the shunt Subjective Interval Events/Subjective: - OR for the above procedure - NAOE - Afebrile, hemodynamically normal - WBC stable on IV abx - Denies fever/chills, no abdominal pain Objective Vitals: Last Value Range last 24 hrs Temperature Temp: 36.7 ??C (98.1 ??F) Temp: [36.5 ??C (97.7 ??F)-37.5 ??C (99.5 ??F)] Heart Rate Heart Rate: 76 Heart Rate from SpO2: 76 bpm Heart Rate: [60-79] Heart Rate From SP02 Min: 60 bpm Max: 78 bpm Blood Pressure BP: 132/83 BP: (97-138)/(68-116) BP (Arterial Line): -- MAP MAP (NBP): [79 mmHg-124 mmHg] Respiratory Rate Resp: 25 Resp: [10-30] SpO2 SpO2: 94 % SpO2: [92 %-95 %] O2 Device O2 Device: None (Room air) Intake/Output: 06/19 0701 - 06/20 0700 In: 450 [P.O.:150; I.V.:300] Out: 1190 [Urine:1025] Physical Exam: GEN: resting comfortably in bed, pleasant, conversant, NAD HEENT: normocephalic, atraumatic CHEST: comfortable work of breathing on RA CV: regular rate, well perfused ABD: soft, nondistended, non tender, multiple well healing scars from prior shunt revisions, abdominal incision c/d with dermabond intact - small underlying seroma/hematoma - non-tender to palpation EXTR: moving all extremities spontaneously NEURO: awake and alert, grossly intact, nonfocal, follows commands Labs: Recent Labs 06/21/232 06/20/23 0516 06/19/23 0330 WBC 10.3* 10.9* 10.2* HGB 17.8* 17.6* 16.5 HCT 51.9* 51.5* 47.6 PLATELET 244 253 214 Recent Labs 06/21/23 0222 06/20/23 0515 06/19/23 0320 NA 137 138 139 K 4.2 3.9 4.1 CL 104 104 106 CO2 20* 20* 22 BUN 17 17 13 CREATININE 1.16 1.11 1.22 GLUCOSE 101 109 113 CALCIUM 9.2 9.6 9.0 MAGNESIUM 0.99 0.99 0.95 PHOS 3.6 3.2 2.8 No results for input(s): PROT, ALBUMIN, BILITOT, BILIDIR, ALKPHOS, AST, ALT in the last 72 hours. No results for input(s): LACTATEVEN in the last 72 hours. Micro: 06/17 IR abd wall fluid cx: NGTD Studies: CT AP w IV contrast 06/16/23: IMPRESSION 1. Interval revision of the shunt [...] area suspicious for abscess with surrounding cellulitis. Impression and Recommendations: Chapin Costa is a 52 y.o. 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 Now admitted due to CSF leak from abdominal incision with slightly elevated WBC from his usual chronic leukocytosis and CT findings concerning for x2 fluid collections which could represent abscess vs sterile CSF. S/p externalization of theshunt with CSF cultures in process. IR has since aspirated the superficial fluid collection. General surgery was consulted for management of the intra-abdominal fluid collection. Now s/p removal of the remnant intraabdominal POINT OF CARE 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 06/20/23. Patient has recovered well from the above procedure. He denies abdominal pain. His incision is clean and dry with intact Dermabond. Small soft tissue seroma versus hematoma should spontaneously resolve with time. From a general surgery standpoint, he is okay to resume diet. All infectious workup thus far has been negative. Will defer to neurosurgery and ID regarding whether further workup is needed moving forward. Recommendations: -Okay to resume a diet from a general surgery standpoint -Continue IV abx per ID -General surgery will sign off, no need for outpatient follow up All plans formulated in discussion with and directed by attending surgeon Dr. Murray. Thank you for this consult. If you have any questions, please page [phone]. Consult service will sign off Vivian Lawson MD 06/21/2023 Acute Care Surgery Service [phone] * Laila Ricci MD - 06/21/2023 5:40 AM EDT [facility] Neurosurgery Progress Note Date: 06/21/2023, HD: 5 Assessment: 52 y.o. 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 Presents with 2 days of abdominal drainage, subjective fevers, and one day of ALICEA. Found to have discontinuity of distal catheter with leakage of CSF out of incision. Shunt was externalized on HD0, CSF benign, patient was started on broad spectrum abx, now narrowed to Vanc and CTX per ID. Abdominal fluid aspirated in IR on 06/17, cultures pending but so far reassuring. Given deeper peritoneal collection and c/f foreign material being infectious nidus, Ever is now s/p surgical removal of distal catheter from abdomen with ACS team. Ultimately we are awaiting finalization of CSF cultures to reinternalize shunt, likely into pleural space early next week though abdomenstill option per ACS. PLAN/RECS: - Continue to drain CSF via externalized shunt. Fragile distal catheter will require extra care to make sure it does not get pulled when patient mobilizing. - ID consult for abx guidance and to help determine timing for distal catheter reimplantation surgery/how long to await final culture growth. - IR consult for drainage of abdominal fluid collection, f/u cultures - General Surgery consult for deeper peritoneal fluid collection, now s/p surgical removal of distal catheter, appreciate involvement - Continue IV abx for now, currently on CTX and Vanc - f/u CSF cultures. NGTD so far. - Ok for Q2NC - SBP 90-160 - DVT ppx with SCDs, SQH - Ok to ADAT per ACS 24 hour Events: NAEON CSF and IR fluid NGTD Denies abdominal pain or headache Tolerating gingerale/PO fluids, feeling hungry Exam: General: NAD HEENT: Normocephalic Cards: RRR on monitor Pulmonary: Nonlabored breathing Neuro: AOx3 Conversational, speech fluent PERRL, EOMI R exotropia FS, TML No pronator drift RUE: 06/27 LUE: 06/27 RLE: 06/27 LLE: 06/27 SILTx4 R cranial incision well healed, no areas of erythema, no drainage Abdominal incision CDI with dermabond/absorbable suture Abdomen nontender Drains: Patent VPS catheter with clear output. Dressing on R chest is dry. Labs/Imaging: Reviewed in [facility]. Problem List: Patient Active Problem List Diagnosis Code 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 Z98.2 Persistent headaches R51.9 Headache R51.9 Cervicalgia M54.2 Seizures R56.9 Hydrocephalus G91.9 Congenital hydrocephalus Q03.9 Shunt malfunction [id number] Laila Ricci MD Please page #[phone] with questions regarding all established patients, or #[phone] for first time consults on new patients. * Liyah Sy RN - 06/20/2023 3:33 PM EDT 1443 Pt arrived to PACU sedated, oral airway, simple mask. Connected to monitor, alarms set and reviewed 1520 Pt waking spontaneously, oral airway removed. Oriented x4. Endorsing soreness to RUQ, declining medication at this time. Denies nausea. 1535 Report called to NSCU. * Laila Ricci MD - 06/20/2023 6:23 AM EDT [facility] Neurosurgery Progress Note Date: 06/20/2023, HD: 4 Assessment: 52 y.o. 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 Presents with 2 days of abdominal drainage, subjective fevers, and one day of ALICEA. Found to have discontinuity of distal catheter with leakage of CSF out of incision. Shunt was externalized on HD0, CSF benign, patient was started on broad spectrum abx, now narrowed to Vanc and CTX per ID. Abdominal fluid aspirated in IR on 06/17, cultures pending but so far reassuring. Discussed deeper peritoneal collection with ACS team yesterday, plan for OR today for removal of abandoned distal catheter d/t c/f foreign material being infectious nidus. He is NPO for this. Ultimately we are awaiting finalization of CSF cultures to reinternalize shunt, likely into pleural space early next week. PLAN/RECS: - Continue to drain CSF via externalized shunt. Fragile distal catheter will require extra care to make sure it does not get pulled when patient mobilizing. - ID consult for abx guidance and to help determine timing for distal catheter reimplantation surgery/how long to await final culture growth. - IR consult for drainage of abdominal fluid collection, f/u cultures - General Surgery consult for deeper peritoneal fluid collection, OR with them today - Continue IV abx for now, currently on CTX and Vanc - f/u CSF cultures. NGTD so far. - Ok for Q2NC - SBP 90-160 - DVT ppx with SCDs, SQH - NPO for OR with ACS 24 hour Events: NAEON CSF and IR fluid NGTD NPO for OR with ACS team Denies abdominal pain or headache, feeling well overall Exam: General: NAD HEENT: Normocephalic Cards: RRR on monitor Pulmonary: Nonlabored breathing Neuro: AOx3 Conversational, speech fluent PERRL, EOMI R exotropia FS, TML No pronator drift RUE: 06/27 LUE: 06/27 RLE: 06/27 LLE: 06/27 SILTx4 R cranial incision well healed, no areas of erythema, no drainage Abdominal incision without skin defect Abdomen nontender Drains: Patent VPS catheter with clear output. Dressing on R chest is dry. Labs/Imaging: Reviewed in Epic. Problem List: Patient Active Problem List Diagnosis Code 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 Z98.2 Persistent headaches R51.9 Headache R51.9 Cervicalgia M54.2 Seizures R56.9 Hydrocephalus G91.9 Congenital hydrocephalus Q03.9 Shunt malfunction [id number] Laila Ricci MD Please page #[phone] with questions regarding all established patients, or #[phone] for first time consults on new patients. * Arely Murray MD - 06/20/2023 5:59 AM EDT Acute Care Surgery Inpatient Consult Progress Note Admission Date: 06/16/2023 Primary Team: RADHIKA ID: Chapin A Ever Costa is a 52 y.o. 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 Now admitted due to CSF leak from abdominal incision with slightly elevated WBC from his usual chronic leukocytosis and CT findings concerning for x2 fluid collections which could represent abscess vs sterile CSF. S/p externalization ofthe shunt with CSF cultures in process. IR has since aspirated the superficial fluid collection. General surgery was consulted for management of the intra-abdominal fluid collection. Procedures: 06/16/23: externalization of POINT OF CARE 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 (NSGY) Subjective Interval Events/Subjective: - NAOE - Afebrile, hemodynamically normal - WBC stable on IV abx - Denies fever/chills, no abdominal pain - NPO for OR today Objective Vitals: Last Value Range last 24 hrs Temperature Temp: 36.7 ??C (98.1 ??F) Temp: [36.5 ??C (97.7 ??F)-36.8 ??C (98.2 ??F)] Heart Rate Heart Rate: 68 Heart Rate from SpO2: 63 bpm Heart Rate: [66-88] Heart Rate From SP02 Min: 63 bpm Max: 86 bpm Blood Pressure BP: (!) 126/95 BP: (113-139)/(80-98) BP (Arterial Line): -- MAP MAP (NBP): [89 mmHg-108 mmHg] Respiratory Rate Resp: 16 Resp: [15-24] SpO2 SpO2: 93 % SpO2: [93 %-95 %] O2 Device O2 Device: None (Room air) Intake/Output: 06/18 0701 - 06/19 0700 In: 300 [P.O.:300] Out: 1403 [Urine:1250] Physical Exam: GEN: resting comfortably in bed, pleasant, conversant, NAD HEENT: normocephalic, atraumatic CHEST: comfortable work of breathing on RA CV: regular rate, well perfused ABD: soft, nondistended, non tender, palpable abdominal wall shunt, multiple well healing scars from prior shunt revisions EXTR: moving all extremities spontaneously NEURO: awake and alert, grossly intact, nonfocal, follows commands Labs: Recent Labs 06/20/23 0516 06/19/23 0330 06/18/23 0210 WBC 10.9* 10.2* 11.1* HGB 17.6* 16.5 15.7 HCT 51.5* 47.6 46.3 PLATELET 253 214 201 Recent Labs 06/20/23 0515 06/19/23 0320 06/18/23 0210 NA 138 139 138 K 3.9 4.1 4.2 CL 104 106 106 CO2 20* 22 22 BUN 17 13 14 CREATININE 1.11 1.22 1.12 GLUCOSE 109 113 123 CALCIUM 9.6 9.0 8.9 MAGNESIUM 0.99 0.95 0.91 PHOS 3.2 2.8 2.2* No results for input(s): PROT, ALBUMIN, BILITOT, BILIDIR, ALKPHOS, AST, ALT in the last 72 hours. No results for input(s): LACTATEVEN in the last 72 hours. Micro: 06/17 IR abd wall fluid cx: NGTD Studies: CT AP w IV contrast 06/16/23: IMPRESSION 1. Interval revision of the shunt [...] area suspicious for abscess with surrounding cellulitis. Impression and Recommendations: Chapin Costa is a 52 y.o. 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 Now admitted due to CSF leak from abdominal incision with slightly elevated WBC from his usual chronic leukocytosis and CT findings concerning for x2 fluid collections which could represent abscess vs sterile CSF. S/p externalization of theshunt with CSF cultures in process. IR has since aspirated the superficial fluid collection. General surgery was consulted for management of the intra-abdominal fluid collection. With ongoing concern for intraabdominal infection, plan for foreign body removal of the remnant POINT OF CARE 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 within the peritoneum. The size of the intraabdominal fluid collection is too small to warrantintraabdominal exploration. Abscesses <3cm in size typically resolve with medical management alone once the foreign body has been removed. Additionally, the intraabdominal fluid collection is small and located deep within the mesentery which would be difficult to find laparoscopically and would likely be surrounded by adhesive disease with increased risk of bleeding and damage to surrounding structures. After discussion of risks, benefits, alternatives, and natural history of the disease, patient is agreeable to proceeding with diagnostic laparoscopy, removal of abdominal wall and peritoneal foreignbody, other procedures as indicated. All questions answered. Consent signed and in the chart. Proceed with planned procedure. Recommendations: -Plan for OR today per above -Consent signed and in chart. -NPO for OR today -Continue DVT ppx, no need to hold for surgery -Continue IV abx Above recommendations discussed with primary team. All plans formulated in discussion with and directed by attending surgeon Dr. Murray. Thank you for this consult. If you have any questions, please page [phone]. Consult service will continue to follow along Jackelyn Simon MD 06/20/2023 Acute Care Surgery Service [phone] Acute Care Surgery Attending Addendum: I have seen this patient and agree with the above note with the following additions and/or modifications. In no distress. Plan for removal of remaining shunt, expected approach is through recent shunt revision site. I explained to Ever's mother that an intra-abdominal procedure may be needed but would prefer to minimize today's approach. She also shared the next shunt may need to be placed via the left abdomen. OR today. * Vivian Lawson MD - 06/19/2023 5:46 PM EDT Acute Care Surgery Inpatient Consult Progress Note Admission Date: 06/16/2023 Primary Team: RADHIKA ID: Chapin A Ever Costa is a 52 y.o. 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 Now admitted due to CSF leak from abdominal incision with slightly elevated WBC from his usual chronic leukocytosis and CT findings concerning for x2 fluid collections which could represent abscess vs sterile CSF. S/p externalization ofthe shunt with CSF cultures in process. IR has since aspirated the superficial fluid collection. General surgery was consulted for management of the intra-abdominal fluid collection. Procedures: 06/16/23: externalization of POINT OF CARE 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 (NSGY) Subjective Interval Events/Subjective: - NAOE - Afebrile, hemodynamically normal - WBC down trending on IV abx - Denies fever/chills, no abdominal pain Objective Vitals: Last Value Range last 24 hrs Temperature Temp: 36.8 ??C (98.2 ??F) Temp: [36.5 ??C (97.7 ??F)-37 ??C (98.6 ??F)] Heart Rate Heart Rate: 88 Heart Rate from SpO2: 86 bpm Heart Rate: [58-88] Heart Rate From SP02 Min: 58 bpm Max: 86 bpm Blood Pressure BP: 130/88 BP: (119-139)/(80-98) BP (Arterial Line): -- MAP MAP (NBP): [89 mmHg-108 mmHg] Respiratory Rate Resp: 19 Resp: [13-24] SpO2 SpO2: 93 % SpO2: [93 %-95 %] O2 Device O2 Device: None (Room air) Intake/Output: 06/17 0701 - 06/18 0700 In: 1410 [P.O.:910] Out: 2045 [Urine:1865] Physical Exam: GEN: resting comfortably in bed, pleasant, conversant, NAD HEENT: normocephalic, atraumatic CHEST: comfortable work of breathing on RA CV: regular rate, well perfused ABD: soft, nondistended, non tender, palpable abdominal wall shunt, multiple well healing scars from prior shunt revisions EXTR: moving all extremities spontaneously NEURO: awake and alert, grossly intact, nonfocal, follows commands Labs: Recent Labs 06/19/23 0330 06/18/23 0210 06/17/23 0350 WBC 10.2* 11.1* 12.3* HGB 16.5 15.7 16.6* HCT 47.6 46.3 47.6 PLATELET 214 201 209 Recent Labs 06/19/23 0320 06/18/23 0210 06/17/23 0350 NA 139 138 137 K 4.1 4.2 3.9 CL 106 106 103 CO2 22 22 21* BUN 13 14 15 CREATININE 1.22 1.12 1.21 GLUCOSE 113 123 104 CALCIUM 9.0 8.9 9.0 MAGNESIUM 0.95 0.91 0.88 PHOS 2.8 2.2* 2.6 No results for input(s): PROT, ALBUMIN, BILITOT, BILIDIR, ALKPHOS, AST, ALT in the last 72 hours. No results for input(s): LACTATEVEN in the last 72 hours. Micro: 06/17 IR abd wall fluid cx: NGTD Studies: CT AP w IV contrast 06/16/23: IMPRESSION 1. Interval revision of the shunt [...] area suspicious for abscess with surrounding cellulitis. Impression and Recommendations: Chapin Costa is a 52 y.o. 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 Now admitted due to CSF leak from abdominal incision with slightly elevated WBC from his usual chronic leukocytosis and CT findings concerning for x2 fluid collections which could represent abscess vs sterile CSF. S/p externalization of theshunt with CSF cultures in process. IR has since aspirated the superficial fluid collection. General surgery was consulted for management of the intra-abdominal fluid collection. With ongoing concern for intraabdominal infection, will plan for foreign body removal of the remnant POINT OF CARE 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 within the peritoneum. The size of the intraabdominal fluid collection is too small to warrant intraabdominal exploration. Abscesses <3cm in size typically resolve with medical management alone once the foreign body has been removed. Additionally, the intraabdominal fluid collection issmall and located deep within the mesentery which would be difficult to find laparoscopically and would likely be surrounded by adhesive disease with increased risk of bleeding and damage to surrounding structures. Discussed with both the patient and his mom and bedside. Will plan to proceed with operative removal of the intraperitoneal shunt. Recommendations: -NPO at MN -Continue DVT ppx, do not hold for surgery -Continue IV abx -OR over the weekend for shunt removal -Obtain consent in the AM Above recommendations discussed with primary team. All plans formulated in discussion with and directed by attending surgeon Dr. Pack. Thank you for this consult. If you have any questions, please page [phone]. Consult service will continue to follow along Vivian Lawson MD 06/19/2023 Acute Care Surgery Service [phone] Associated attestation - Ovidio Pack MD - 06/22/2023 10:51 AM EDT This patient was personally seen and examined on team rounds. I agree with the assessment and plan as discussed. Diagnoses and therapy were explained and all questions were answered. Discussed with his mother at bedside Thank you for allowing us to participate in the care of your patient. Please feel free to call withany questions or concerns. Ovidio Pack MD 06/22/2023 10:50 AM [id number] * Meghan Stokes, PT - 06/19/2023 3:41 PM EDT Physical Therapy Consult received, hx/current status reviewed and brief assessment completed. Pt demonstrating independence with mobility at baseline level. No skilled PT needs identified at this time. Given concern for POINT OF CARE TECHNICIAN drain integrity anticipate pt will continue to ambulate with supervision of staff while remains with current externalized setup, but when returns to baseline, no needs foreseen. Pt in agreement. Will d/c PT consult, please page me should additional needs or concerns arise. 1121 - 1157 IE Low (23mins) Meghan Stokes, PT, MSPT Pager [phone] Inpatient Physical Therapy 06/19/23 1152 Evaluation & Treatment Document Type evaluation Total Minutes, Physical Therapy 23 Treatment Date 06/19/23 Billing Code Ie Low Treatment Number PT 1 Therapy Frequency (PT) evaluation only Anticipated Equipment Needs at Discharge (PT) None Anticipated Discharge Disposition (PT) home with home health Vital Signs Heart Rate from SpO2 72 bpm Heart Rate 73 Resp 18 SpO2 94 % AM-PAC Basic Mobility 6 Click Turning from your back to your side while in a flat bed w/o using handrails? 4 - None Standing up from a chair using your arms (e.g. wheelchair, or bedside commode)? 4 - None Moving from lying on your back to sitting on the side of a flat bed w/o using bedrails? 4 - None Moving to and from a bed to a chair (including a wheelchair) 4 - None To walk in hospital room? 4 - None Climbing 3-5 steps with a railing?* 4 - None AM-PAC Basic Mobility Raw Score 24 Basic Mobility Standardized T-Scale Score 57.68 Basic Mobility CMS 0-100% 0 * Laila Ricci MD - 06/19/2023 5:19 AM EDT [facility] Neurosurgery Progress Note Date: 06/19/2023, HD: 3 Assessment: 52 y.o. 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 Presents with 2 days of abdominal drainage, subjective fevers, and one day of ALICEA. Found to have discontinuity of distal catheter with leakage of CSF out of incision. Shunt was externalized on HD0, CSF benign, patient was started on broad spectrum abx, now narrowed to Vanc and CTX per ID. Abdominal fluid aspirated in IR on 06/17, cultures pending but so far reassuring. Will continue to discuss case with General Surgery and ID in terms of timing for reinternalization. PLAN/RECS: - Continue to drain CSF via externalized shunt. Fragile distal catheter will require extra care to make sure it does not get pulled when patient mobilizing. - ID consult for abx guidance and to help determine timing for distal catheter reimplantation surgery/how long to await final culture growth. - IR consult for drainage of abdominal fluid collection, f/u cultures - General Surgery consult for deeper peritoneal fluid collection - Continue IV abx for now, currently on CTX and Vanc - f/u CSF cultures. NGTD so far. - Ok for Q2NC - SBP 90-160 - DVT ppx with SCDs, SQH - Regular diet. 24 hour Events: NAEON IR aspiration of abdominal wall fluid collection yesterday CSF and IR fluid NGTD Afebrile, remains on Vanc and CTX Denies abdominal pain today Exam: General: NAD HEENT: Normocephalic Cards: RRR on monitor Pulmonary: Nonlabored breathing Neuro: AOx3 Conversational, speech fluent PERRL, EOMI R exotropia FS, TML No pronator drift RUE: 06/27 LUE: 06/27 RLE: 06/27 LLE: 06/27 SILTx4 R cranial incision well healed, no areas of erythema, no drainage Abdominal incision without skin defect, surrounding erythema slightly improved Abdomen nontender Drains: Patent VPS catheter with clear output. Labs/Imaging: Reviewed in Epic. Problem List: Patient Active Problem List Diagnosis Code 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 Z98.2 Persistent headaches R51.9 Headache R51.9 Cervicalgia M54.2 Seizures R56.9 Hydrocephalus G91.9 Congenital hydrocephalus Q03.9 Shunt malfunction [id number] Laila Ricci MD Please page #[phone] with questions regarding all established patients, or #[phone] for first time consults on new patients. * Meghan Stokes, PT - 06/18/2023 3:54 PM EDT Physical Therapy 06/18/23 8253 Evaluation & Treatment Document Type contact Total Minutes, Physical Therapy 0 Comment, Session Not Performed PT consult received, hx/current status reviewed. attempted to see ptfor assessment, he is currently off unit for procedure. will plan to f.u as appropriate tomorrow. Meghan Stokes PT, MSPT Pager [phone] Inpatient Physical Therapy * Trevor Sandoval RN - 06/18/2023 3:35 PM EDT [facility] NURSING DATABASE Name: Chapin Costa Date of : 1970 AGE: 52 y.o. Address: [address] [place] [address] (home) Mobile: Telephone Information: Referring Provider: None REASON FOR VISIT: Order Questions Answers Is the patient on anticoagulant / antiplatelet therapy ? No Reason for exam and clinical history: intrabdominal fluid collection associated with ventriculoperitoneal shunt tip, concern for infection,tap for sample vs place drain and send cultures Is the patient taking any anticoagulants and/or antiplatelet meds? No Is patient awake, alert, and consentable? Yes Does patient need assist to stand? No Does Patient have any mobility limitations (e.g. spinal precautions) Yes Does patient require constant supervision? Yes Is patient over 450 lbs (200 kg) No If cardiac monitoring, can EKG leads be removed? Yes Does patient have a pacemaker? No Does patient have a Chest Tube? Yes Is there a language / communication barrier? No Planned procedure: aspiration of right upper quadrant POINT OF CARE 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 fluid collection Labs to be performed day of procedure: No labs Sedation: No Sedation Prophylactic antibiotic : None Contrast: No contrast Additional medications for procedure: Lidocaine Position: Supine Consent: Pending Medications to discontinue (and days held): None Case Urgency:: E- Elective IN-patient intervention within 3 days Allergies Allergen Reactions Latex Other reaction(s): hives with latex powdered gloves Other reaction(s): hives with latex powdered gloves Penicillins Other reaction(s): Anaphylaxsis, RASH Tegaderm [Transparent Dressings] Itching and Other (See Comments) Patient needs no sting barrier wipes prior to Tegaderm application. Tolerates Tegaderm dressing post-application of skin barrier without itching/hives per patient. Vancomycin Hives and Itching Other reaction(s): Skin Rash Administering IV Benadryl prior to each Vancomycin dose seems to alleviate the reaction/allergy. Vancomycin Analogues Vancomycin Hcl Pertinent PMH: Patient Active Problem List Diagnosis Code 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 Z98.2 Persistent headaches R51.9 Headache R51.9 Cervicalgia M54.2 Seizures R56.9 Hydrocephalus G91.9 Congenital hydrocephalus Q03.9 Shunt malfunction T85.618A Date/Procedure Meds Given/Comments 06/18/23 Aspiration drainage abdomen: 3ml Local 1517 to procedure room IR4 via stretcher. Onto table supine. All monitors, O2, safety strap in place. Meds per protocol. Laboratory Results: Lab Results Component Value Date INR 1.2 06/16/2023 Lab Results Component Value Date CREATININE 1.12 06/18/2023 Lab Results Component Value Date K 4.2 06/18/2023 Lab Results Component Value Date PLATELET 201 06/18/2023 * Laila Ricci MD - 06/18/2023 5:31 AM EDT [facility] Neurosurgery Progress Note Date: 06/18/2023, HD: 2 Assessment: 52 y.o. 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 Presents with 2 days of abdominal drainage, subjective fevers, and one day of ALICEA. Found to have discontinuity of distal catheter with leakage of CSF outof incision. Shunt was externalized on HD0, CSF benign, patient was started on broad spectrum abx, now narrowed to Vanc and CTX per ID with plan to drain abdominal fluid collection in IR. PLAN/RECS: - Continue to drain CSF via externalized shunt. Fragile distal catheter will require extra care to make sure it does not get pulled when patient mobilizing. - ID consult for abx guidance and to help determine timing for distal catheter reimplantation surgery/how long to await final culture growth. - IR consult for drainage of abdominal fluid collection, plan to send for culture - Continue IV abx for now, currently on CTX and Vanc - f/u CSF cultures. NGTD so far. - Ok for Q2NC - SBP 90-160 - DVT ppx with SCDs - Regular diet. 24 hour Events: NAEON CSF NGTD Afebrile Pending IR guided abdominal fluid collection aspiration Denies abdominal pain today Exam: General: NAD HEENT: Normocephalic Cards: RRR on monitor Pulmonary: Nonlabored breathing Neuro: AOx3 Conversational, speech fluent PERRL, EOMI R exotropia FS, TML No pronator drift RUE: 06/27 LUE: 06/27 RLE: 06/27 LLE: 06/27 SILTx4 R cranial incision well healed, no areas of erythema, no drainage Abdominal incision without skin defect, surrounding erythema slightly improved Abdomen nontender Drains: VPS catheter with clear output. Labs/Imaging: Reviewed in Epic. Problem List: Patient Active Problem List Diagnosis Code 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 Z98.2 Persistent headaches R51.9 Headache R51.9 Cervicalgia M54.2 Seizures R56.9 Hydrocephalus G91.9 Congenital hydrocephalus Q03.9 Shunt malfunction T85.618A Laila Ricci MD Please page #[phone] with questions regarding all established patients, or #[phone] for first time consults on new patients. * Richard Valles MD - 06/17/2023 7:18 AM EDT [facility] Neurosurgery Progress Note Date: 06/17/2023, HD: 1 Assessment: 52 y.o. 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 Presents with 2 days of abdominal drainage, subjective fevers, and one day of ALICEA. Found to have discontinuity of distal catheter with leakage of CSF outof incision. Shunt was externalized on HD0 and patient was started on broad spectrum abx. PLAN/RECS: - Continue to drain CSF via externalized shunt. Fragile distal catheter will require extra care to make sure it does not get pulled when patient mobilizing. - Will consult ID for abx guidance and to help determine timing for distal catheter reimplantation surgery/how long to await final culture growth. - Continue IV abx for now, currently on meropenem and vanc. - f/u CSF cultures. NGTD so far. - Ok for Q2NC - SBP 90-160 - DVT ppx with SCDs - Regular diet. 24 hour Events: NAEON CSF profile benign. CSF and blood cultures are no growth to date. Afebrile Continues to have abdominal pain over the right side Some drainage from the externalized catheter site, marked. Exam: General: NAD HEENT: Normocephalic Cards: RRR on monitor Pulmonary: Nonlabored breathing Neuro: AOx3 Conversational, speech fluent, naming & repetition intact PERRL, EOMI R exotropia VFF to confrontation, FS, TML No pronator drift RUE: 55 LUE: 5/5 RLE: 5/5 LLE: 5/ SILTx4 No clonus R cranial incision well healed, no areas of erythema, no drainage Abdominal incision with skin defect, surrounding erythema slightly improved, tender to palpation. Pain to palpation of right abdomen No nuchal rigidity Drains: EVD with clear output. Labs/Imaging: Reviewed in Epic. Problem List: Patient Active Problem List Diagnosis Code 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 Z98.2 Persistent headaches R51.9 Headache R51.9 Cervicalgia M54.2 Seizures R56.9 Hydrocephalus G91.9 Congenital hydrocephalus Q03.9 Shunt malfunction T85.618A Richard Valles MD Please page #[phone] with questions regarding all established patients, or #[phone] for first time consults on new patients. documented in this encounter H&P Notes * Collin Machado PA - 06/17/2023 4:54 PM EDT Images from the original note were not included. Interventional Radiology Focused Pre-procedure H&P: PCP: MARVA Gordon Procedure indication: Congenital hydrocephalus, POINT OF CARE 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 fluid collection IR workflow: Procedure request received through the Interventional Radiology eDH order queue. History of present illness: Per chart review, Chapin Costa is a 52 y.o. male who presents toInterventional Radiology to undergo aspiration of fluid around POINT OF CARE 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 in the setting of recent revision. This is a patient s/p shunt revision 06/08 with finding of shunt fracture, repaired by splicing together fractured ends with metal connector, with persistent tenderness at the site and mild leukocytosis. Repeat scan demonstrated: New moderate inflammation in the right upper quadrant surrounding a 13 mm segment of discontinuity of the catheter tubing just above a metallic connector. There is a 3.3 cm fluid collection in this area suspicious for abscess with surrounding cellulitis. IR consulted for aspiration of fluid at site to evaluate for possible infection. Patient is able tomake medical decisions with aid of legal guardian. 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 Remainder of patient's medical and surgical history, allergies, medications, and social/family history obtained below as previously outlined in patient's medical record. IR history: none Imaging: Assessment: 52 y.o. male with fluid and pain at site of POINT OF CARE 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 revision presenting to Interventional Radiology for fluid aspiration. Plan Planned procedure: aspiration of right upper quadrant POINT OF CARE 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 fluid collection Labs to be performed day of procedure: No labs Sedation: No Sedation Prophylactic antibiotic : None Contrast: No contrast Additional medications for procedure: Lidocaine Position: Supine Consent: Pending Medications to discontinue (and days held): None Cytopathology presence needed: No Case Urgency:: E- Elective IN-patient intervention within 3 days Plan or recommendation formulated in discussion with and directed by Interventional Radiology attending physician Karina. Labs: Lab Results Component Value Date HGB 16.6 (H) 06/17/2023 HCT 47.6 06/17/2023 WBC 12.3 (H) 06/17/2023 PLATELET 209 06/17/2023 INR 1.2 06/16/2023 BUN 15 06/17/2023 CREATININE 1.21 06/17/2023 ALBUMIN 4.6 06/08/2023 BILIDIR 0.1 03/23/2019 BILITOT 0.7 06/08/2023 AST 14 06/08/2023 ALT 19 06/08/2023 ALKPHOS 109 06/08/2023 Allergies: Latex, Penicillins, Vancomycin, Tegaderm [transparent dressings], Vancomycin analogues, and Vancomycin hcl Medications: No current facility-administered medications on file prior to encounter. Current Outpatient Medications on File Prior to Encounter Medication Sig Dispense Refill atorvastatin (Lipitor) 10 mg tablet Take 10 [...] tablet Take 10 mg by mouth daily. oxyCODONE (Roxicodone) 5 mg tablet Take 1 tablet by mouth every 6 hours as needed for Pain. 5 tablet 0 polyethylene glycoL (Miralax) 17 gram oral powder [...] into the muscle every 14 days. 0 Past medical/surgical history: Patient Active Problem List Diagnosis Code 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 Z98.2 Persistent headaches R51.9 Headache R51.9 Cervicalgia M54.2 Seizures R56.9 Hydrocephalus G91.9 Congenital hydrocephalus Q03.9 Shunt malfunction T85.618A Past Medical History: Diagnosis Date Depression Hearing loss r ear Hydrocephalus associated with congenital aqueduct stenosis Hyperlipidemia Hypertension Memory disorder Seizures Syncope and collapse Vision abnormalities related to hydrocephalus Past Surgical History: Procedure Laterality Date CARPAL TUNNEL RELEASE Right CHOLECYSTECTOMY, LAPAROSCOPIC PRO ALVEOLOPLASTY W EXTRACTIONS, 4 OR MORE TEETH, PER QUADRANT N/A 10/18/2020 ALVEOPLASTY,IN CONJUNCTION WITH EXTRACTIONS,PER QUADRANT,ENT (WRVU 4.06) performed by Shan Rivero MD at [facility] OSC PRO EXTRACTION, ERUPTED TOOTH OR EXPOSED ROOT N/A 10/18/2020 EXTRACTION, ERUPTED TOOTH OR EXPOSED ROOT (WRVU 0.62) performed by Shan Rivero MD at [facility] PRO IMPACT TOOTH REM BONY W/COMP N/A 10/18/2020 SURGICAL EXTRACTIONS, REMOVAL OF IMPACTED TOOTH, COMPLETELY BONY WITH UNUSUAL SURGICAL COMPLICATIONS (WRVU 2.91) performed by Shan Rivero MD at [facility] PRO IMPACT TOOTH REMOV COMP BONY N/A 10/18/2020 SURGICAL EXTRACTIONS, REMOVAL OF IMPACTED TOOTH, COMPLETELY BONY (WRVU 1.93) performed by Shan Rivero MD at [facility] PRO REMOVAL ERUPTED TOOTH WITH ELEVATION OF MUCOPERIOSTEAL FLAP Bilateral 10/18/2020 SURGICAL EXTRACTIONS REQUIRING ELEVATION OF MUCOPERIOSTEAL FLAP AND REMOVAL OF BONE OR SECTION OF TOOTH (WRVU 1.09) performed by Shan Rivero MD at [facility] PRO REPLACEMENT/REVISION, CSF SHUNT Right 06/09/2023 REVISION OR REPLACEMENT CSF SHUNT (WRVU 11.43) performed by Rhoda Jimenez MD at [facility] MAIN OR PRO UNLISTED PROCEDURE NERVOUS SYSTEM Right 05/24/2022 EXPLORATION VENTRICULO-PERITONEAL SHUNT (WRVU 25.48) performed by Rhoda Jimenez MD at [facility] MAIN OR SHOULDER SURGERY ULNAR TUNNEL RELEASE Right VENTRICULOPERITONEAL SHUNT Multiple revisions - ~46 prior revisions Social history and habits: Social History Tobacco Use Smoking status: Never Smokeless tobacco: Never Vaping Use Vaping Use: Never used Substance Use Topics Alcohol use: No Drug use: No Significant family history: Family History Problem Relation Age of Onset Muscular Dystrophy Cousin Pertinent ROS: as per HPI Physical exam: Pending (to be performed in interventional radiology the day of procedure) ASA: Pending (to be assessed in interventional radiology the day of procedure) Mallampati class: Pending (to be assessed in interventional radiology the day of procedure) 06/17/2023 MARVA Thrasher * Lisa Bautista MD - 06/16/2023 12:24 PM EDT [facility] NEUROSURGERY H&P ID: Chapin Costa, 52 y.o. male. : 1970 Consult Requesting Service: ED Reason for consult: abdominal drainage, subjective fevers, ALICEA HISTORY OF PRESENT ILLNESS: Chapin Costa is a 52 y.o. 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 Presents to the ED with 2 days of abdominal drainage, subjective fevers, and one day of ALICEA. Is alsoendorsing belly pain and there is notable erythematous tissue near the previous abdominal incision. Denies N/V, weakness, paresthesias, vision issues, or bowel/bladder symptoms. HCT shows stable ventricular caliber and XRSS shows displacement of distal catheter at previous attachment point. REVIEW OF SYSTEMS: As above in HPI, otherwise non-contributory. VITAL SIGNS: Visit Vitals BP 127/89 Pulse 90 Temp 36.2 ??C (97.2 ??F) (Temporal) Resp 16 SpO2 94% PHYSICAL EXAM: General: NAD HEENT: Normocephalic Cards: RRR on monitor Pulmonary: Nonlabored breathing Neuro: AOx3 Conversational, speech fluent, naming & repetition intact PERRL, EOMI R exotropia VFF to confrontation, FS, TML No pronator drift RUE: 06/27 LUE: 5/5 RLE: 5 LLE: 06/27 SILTx4 No clonus R cranial incision well healed, no areas of erythema, no drainage Abdominal incision with skin defect, surrounding erythema, appears wet Pain to palpation of lower abdomen No nuchal rigidity LABS: CBC: Lab Results Component Value Date/Time WBC 17.8 (H) 06/16/2023 11:20 AM HGB 17.9 (H) 06/16/2023 11:20 AM PLATELET 236 06/16/2023 11:20 AM BMP: Lab Results Component Value Date/Time NA 140 06/16/2023 11:20 AM K 4.2 06/16/2023 11:20 AM CL 103 06/16/2023 11:20 AM CO2 22 06/16/2023 11:20 AM BUN 14 06/16/2023 11:20 AM CREATININE 1.20 06/16/2023 11:20 AM Coags: No results found for: INR, PT, PTT IMAGING: HCT 06/16/23 IMPRESSION Stable examination with no hydrocephalus or other acute abnormality. XRSS 06/16/23 IMPRESSION Right frontal approach POINT OF CARE 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 catheter with focal discontinuity at the segment where it enters the abdomen with 2.3 cm gap. Aside from this, the remaining catheter are intact ASSESSMENT: 52 y.o. 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 Presents with 2 days of abdominal drainage, subjective fevers, and one day of ALICEA. Found to have discontinuity of distal catheter with leakage of CSF out of incision. We will plan to either externalize shunt or revise distally. This decision is pending infectious workup. PLAN/RECS: - Admit per NSGY, s/p externalization - Triple abx - f/u CSF cultures - Ok for Q2NC - SBP 90-160 - DVT ppx with SCDs - Hold AC/AP hold - Rest of care per primary/ED Case discussed with Dr. Jimenez, neurosurgery attending. Future Appointments Date Time Provider Department Center 07/09/2023 9:[address] [facility] [address] [facility] [address] [facility] Rad 07/09/2023 10:40 AM Cl Atkins PA [facility] [facility] [id number] [facility] Neurosurgery Pager: [phone] Lisa Bautista MD 06/16/2023 12:24 PM Clinical Documentation Improvement: There are no hospital problems to display for this patient. PAST MEDICAL HISTORY: Past Medical History: Diagnosis Date Depression Hearing loss r ear Hydrocephalus associated with congenital aqueduct stenosis Hyperlipidemia Hypertension Memory disorder Seizures Syncope and collapse Vision abnormalities related to hydrocephalus PAST SURGICAL HISTORY: Past Surgical History: Procedure Laterality Date CARPAL TUNNEL RELEASE Right CHOLECYSTECTOMY, LAPAROSCOPIC PRO ALVEOLOPLASTY W EXTRACTIONS, 4 OR MORE TEETH, PER QUADRANT N/A 10/18/2020 ALVEOPLASTY,IN CONJUNCTION WITH EXTRACTIONS,PER QUADRANT,ENT (WRVU 4.06) performed by Shan Rivero MD at [facility] PRO EXTRACTION, ERUPTED TOOTH OR EXPOSED ROOT N/A 10/18/2020 EXTRACTION, ERUPTED TOOTH OR EXPOSED ROOT (WRVU 0.62) performed by Shan Rivero MD at [facility] PRO IMPACT TOOTH REM BONY W/COMP N/A 10/18/2020 SURGICAL EXTRACTIONS, REMOVAL OF IMPACTED TOOTH, COMPLETELY BONY WITH UNUSUAL SURGICAL COMPLICATIONS (WRVU 2.91) performed by Shan Rivero MD at [facility] PRO IMPACT TOOTH REMOV COMP BONY N/A 10/18/2020 SURGICAL EXTRACTIONS, REMOVAL OF IMPACTED TOOTH, COMPLETELY BONY (WRVU 1.93) performed by Shan Rivero MD at [facility] PRO REMOVAL ERUPTED TOOTH WITH ELEVATION OF MUCOPERIOSTEAL FLAP Bilateral 10/18/2020 SURGICAL EXTRACTIONS REQUIRING ELEVATION OF MUCOPERIOSTEAL FLAP AND REMOVAL OF BONE OR SECTION OF TOOTH (WRVU 1.09) performed by Shan Rivero MD at [facility] PRO REPLACEMENT/REVISION, CSF SHUNT Right 06/09/2023 REVISION OR REPLACEMENT CSF SHUNT (WRVU 11.43) performed by Rhoda Jimenez MD at [facility] MAIN OR PRO UNLISTED PROCEDURE NERVOUS SYSTEM Right 05/24/2022 EXPLORATION VENTRICULO-PERITONEAL SHUNT (WRVU 25.48) performed by Rhoda Jimenez MD at [facility] MAIN OR SHOULDER SURGERY ULNAR TUNNEL RELEASE Right VENTRICULOPERITONEAL SHUNT Multiple revisions - ~46 prior revisions MEDICATIONS: No current facility-administered medications on file prior to encounter. Current Outpatient Medications on File Prior to Encounter Medication Sig Dispense Refill atorvastatin (Lipitor) 10 mg tablet Take 10 [...] tablet Take 10 mg by mouth daily. oxyCODONE (Roxicodone) 5 mg tablet Take 1 tablet by mouth every 6 hours as needed for Pain. 5 tablet 0 polyethylene glycoL (Miralax) 17 gram oral powder [...] reaction(s): hives with latex powdered gloves Penicillins Other reaction(s): Anaphylaxsis, RASH Vancomycin Other reaction(s): Skin Rash Tegaderm [Transparent Dressings] Itching Vancomycin Analogues Vancomycin Hcl SOCIAL HISTORY: Social [...] on file Food Insecurity: No Food Insecurity (06/09/2023) Hunger Vital Sign Worried About Running Out of Food in the Last Year: Never true Ran Out of Food in the Last Year: Never true Transportation Needs: No Transportation Needs (06/09/2023) PRAPARE - Transportation Lack of Transportation (Medical): No Lack of Transportation (Non-Medical): No Physical Activity: Not on file Intimate Partner Violence: Not At Risk (06/09/2023) DH IPV Inpatient Questions Prevent Contact with Others: no Feels Threatened by Someone: no Feels Unsafe at Home: no Physical Signs of Abuse Present: no Housing Stability: Low Risk (06/09/2023) Housing Stability Vital Sign Unable to Pay for Housing in the Last Year: No Number of Places Lived in the Last Year: 1 Unstable Housing in the Last Year: No FAMILY HISTORY: Family History Problem Relation Age of Onset Muscular Dystrophy Cousin Associated attestation - Rhoda Jimenez MD - 06/22/2023 3:46 PM EDT I have seen and examined the patient, providing miramontes components as outlined below. I have reviewed the resident???s note; my evaluation of the patient is below: 52 y.o. gentleman presenting with leaking from abdominal incision after a repair of distal shunt fracture on 06/08/2023. He will need to externalized as the incision is likely infected (he is febrile,WBC elevated). We will tape the shunt for cultures and admit him for antibiotics and shunt externalization. documented in this encounter Procedure Notes * Lisa Bautista MD - 06/16/2023 7:03 PM EDT Supplies: -Suture kit tray from OR -EVD connector -EVD collecting chamber -3-0 Nylon -Silk suture -Lidocaine 52 y.o. M with history of congenital shunted hydrocephalus presented with fracture of distal catheter and questionable infectious like symptoms. Recommended to externalize the shunt at the clavicle. Benefits, risks, reviewed with patient who agreed to proceed. Informed consent was signed. Procedure Description: Patient was on room air and hemodynamically stable. All appropriate monitoring devices were in place. Antibiotics were held intentionally until after the procedure. Patient positioned supine with head turned to [...] out from the incision and divided sharply. Given the age of the catheter and extensive calcification, the abdominal portion of the distal catheter was unable to be externalized. Attention was turned to the proximal portion of the distal catheter which was cut and connected to an EVD connector. Wound was then closed with a 3-0 nylon in running fashion for the skin with the proximal catheter emanating from the incision itself. Sterile dressing applied. The proximal catheter was connected to the collection chamber and spontaneous flow was noted. This marked the end of the procedure patient tolerated well without complications. * Lisa Bautista MD - 06/16/2023 7:01 PM EDT [facility] NEUROSURGERY POINT OF CARE TECHNICIAN SHUNT TAP NOTE Date: 06/16/23 Patient: Chapin Costa : [address] Jimenez to tap the patient's VPS for CSF cultures. Pt seen and examined in the ED. Discussed risks and benefits of shunt tap with patient, including risk of introducing new infection which would require shunt revision/explantation in the future. All questions answered, patient wished to proceed. Informed consent obtained. No history of antiplatelets or anticoagulants. VPS located in R retroauricular region. Cleaned with chlorhexidine x3 and draped in usual sterile manner. Sterile gloves used with 25G butterfly needle. VPS reservoir identified. Clear appearing CSF aspirated after 1 attempt. A total of 3cc of CSF was collected and sent for CSF studies. Patient tolerated procedure well. Plan: -F/u CSF studies Lisa Bautista MD 06/16/23 7:02 PM documented in this encounter ED Notes * Richard Mckay RN - 06/16/2023 7:11 PM EDT Report received from Lina LEON, assuming care of patient at this time until patient is moved to inpatient bed, Per Lina LEON, report already called to floor and this RN to transfer patient after change of shift * Leighton Ordoñez MD - 06/16/2023 1:53 PM EDT ED Resident Note HPI: Chapin Costa is a 52 y.o. male with POINT OF CARE 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 who presents to the Emergency Department abdominal pain and headache. Patient was recently admitted to the neurosurgical service for revision of his underlying shunt. Was discharged on the . Since then, he is had progressive headache and abdominal pain. He is also been leaking some fluid around his abdominal incision where his shunt was revised. He states that he had a maximum temperature of 100??F. States he has not had any new vision changes, difficulty walking, weakness, vomiting, rash. ROS as per HPI Vitals: ED Triage Vitals [06/16/23 0918] BP: 125/90 Heart Rate: 90 Resp: 16 Temp: 36.2 ??C (97.2 ??F) Temp src: Temporal SpO2: 96 % O2 Device: RA O2 Flow Rate (L/min): n/a Physical Exam Vitals and nursing note reviewed. Constitutional: General: He is not in acute distress. Appearance: He is well-developed. He is not diaphoretic. HENT: Head: Normocephalic and atraumatic. Eyes: Conjunctiva/sclera: Conjunctivae normal. Cardiovascular: Rate and Rhythm: Normal rate and regular rhythm. Pulses: Normal pulses. Heart sounds: Normal heart sounds. Pulmonary: Effort: Pulmonary effort is normal. No respiratory distress. Breath sounds: Normal breath sounds. Abdominal: General: Abdomen is flat. There is no distension. Palpations: Abdomen is soft. Tenderness: There is no abdominal tenderness. Musculoskeletal: Cervical back: Neck supple. Skin: General: Skin is warm and dry. Neurological: General: No focal deficit present. Mental Status: He is alert and oriented to person, place, and time. Cranial Nerves: No cranial nerve deficit. Sensory: No sensory deficit. Motor: No weakness. ED Course: I have reviewed labs and imaging, images and available reports, and they are significant for: XR Shunt Series Final Result Right frontal approach POINT OF CARE 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 catheter with focal discontinuity at the [...] who have questions please contact the health home care physical therapist that requested your imaging first. Electronically signed by: Kraig Rizvi MD, [facility] ([phone]), at 06/16/2023 11:[address] Head wo Contrast (Generic) Final Result Stable examination with no hydrocephalus or other acute abnormality. Thank you for letting us participate in the care of this patient. If you are a health care provider and have any questions regarding this report, please contact the number below. For patients who have questions please contact the health home care physical therapist that requested your imaging first. Electronically signed by: Eris Hicks MD, [facility] ([phone]), at 06/16/2023 11:[address] Abdomen & Pelvis w Contrast (Results Pending) Procedures Assessment and Plan: 52 y.o. male with shunt malfunction and distal fracture. Errol is clinically well appearing with normal vital signs. I do not appreciate any focal deficits on his exam. He does have some leakage of fluid from his prior incision site with some induration there but no erythema. Shunt series shows a distal discontinuity of his shunt but had CT does not show any abnormalities. He is having a fair amount of abdominal pain and given his leukocytosis to [id number] think it's reasonable to get CT abdomen pelvis to better evaluate. Discussed case with neurosurgery and they have sent CSF studies and are planning for admission after his CT abdomen pelvis. He is not febrile and I think we can hold off on empiric antibiotics until there is a clear indication from either his CT abdomen or his CSF studies. Will admit to neurosurgery. The visit findings, diagnosis, and care plan were discussed with the patient. Leighton Ordoñez MD Resident 06/16/23 2069 Associated attestation - Dennis Castillo MD - 06/17/2023 10:09 AM EDT ED ATTENDING ATTESTATION NOTE The [...] or in my separate note. Brief Summary: 52 y.o. male status post shunt revision last week, presents complaining of headache and abdominal pain at the site of the shunt. He reports low-grade fevers (Tmax 100) and chills. No nausea, vomiting, focal neurologic complaints or other complaints at this time. On exam he is nontoxic. He has tenderness, induration and mild erythema at the site of the recent shunt repair in his right abdominal wall. Moderate tenderness with deep palpation of the abdomen but no rebound or guarding. Imaging was obtained. Neurosurgery was consulted with plan to admit. documented in this encounter Miscellaneous Notes * Care Management - Vishal Padron RN - 06/30/2023 3:09 PM EDT RN/LUDA has received information by [facility] - they called and pt's mom declined services. [facility] will not beout to see patient. Provider team updated. Vishal Padron RN RN/LUDA - Cellphone: [phone] Pager: [phone] Covering Service RN/LUDA * Care Management Discharge - Vishal Padron RN - 06/30/2023 9:58 AM EDT CARE MANAGEMENT FINAL DISCHARGE NOTE Chart reviewed, care reviewed with primary team and at interdisciplinary rounds. Patient is medically ready for discharge today. Needs for Transition of Care: Plan for discharge is: Home w/ Services Outpatient Agency/Support Group Needs: None Home Health Services: Physical Therapy Agency Referrals & Follow-up Care: Contact information for follow-up Home Health & Hospice, [facility] [address] [place] [address] Transportation: family or friend will provide Functional status prior to admission: Independent Home Environment: Others in the home: parent(s). Current Living Arrangements: home/apartment/condo. Accessibility Concerns:Lives in a 3rd floor apartment with an elevator, Patient can also navigate stairs, he wears a CPAP at home, He lives with his mother... Current Functional Ability: Assistive Person DME used at home: respiratory supplies (CPAP at night) DME Needed at Discharge: none anticipated Patient is insured through: Primary Insurance: MEDICARE Payor: MEDICARE / Plan: MEDICARE PART A & B / Product Type: *No Product type* / Secondary Insurance: MEDICAID [place] Prescription Coverage: Yes This plan was formulated with input from patient, parent and team. All are in agreement with plan. I have reviewed the Important Message from Medicare (IMM) with patient's guardian. Patient' guardian verbalizes understanding of right to appeal this discharge if feeling not medically ready. Offereda copy of this letter. Vishal Padron RN RN/CM - Cellphone: [phone] Pager: [phone] Covering Service RN/CM * Care Management - Vishal Padron RN - 06/30/2023 9:54 AM EDT The [employer] has been provided a list of Home Health Agencies/DME vendors which serve their preferred geographic area. A letter describing our affiliations was reviewed with them and they were educated about their right to choose where referrals are placed. Patient requests referral to : [facility] [address] [place] [address] PHONE: [phone] FAX: [phone] Expected date of discharge: 06/30/2023 Referral routed to the Curb Attendant for matching with agency/vendor and to provide any required information. Vishal Padron RN RN/CM - Cellphone: [phone] Pager: [phone] Covering Service RN/CM * Plan of Care - Josselyn Diaz RN - 06/29/2023 11:30 PM EDT Problem: Fall Injury Risk Goal: Absence of Fall and Fall-Related Injury Outcome: Ongoing (Interventions Implemented as Appropriate) Problem: Infection Goal: Absence of Infection Signs and Symptoms Outcome: Ongoing (Interventions Implemented as Appropriate) Problem: Adult Inpatient Plan of Care Goal: [...] Op Note - Laila Ricci MD - 06/29/2023 4:36 PM EDT Brief Operative Note Patient Name: Chapin Costa : [id number] MR#: [id number] Case Date: 06/29/2023 Surgeon: Surgeon(s) and Role: * Rhoda Jimenez MD - Primary * Laila Ricci MD - Resident - Assisting Preoperative diagnosis: hydrocephalus Postoperative diagnosis: hydrocephalus Procedure(s) (LRB): REVISION OR REPLACEMENT CSF SHUNT (VU 11.43) (Right) Anesthesia: General Findings: Removal of externalized distal VPS catheter, placement of new ventriculopleural distal catheter, right side, closure with absorbables and nylon Complications: none Estimated Blood Loss: * No values recorded between 06/29/2023 2:35 PM and 06/29/2023 4:29 PM * Specimens removed during surgery: None [...] patient.) Surgical Infection Prevention Bundle Used? N/A Laila Ricci MD 06/29/2023 * Care Management - Vishal Padron RN - 06/29/2023 2:35 PM EDT OFFICE OF CARE MANAGEMENT PROGRESS NOTE LOS: Hospital Day 13 days Chart reviewed, care reviewed with primary team and at interdisciplinary rounds. Patient continues to meet inpatient level of care related to provider note of 06/29/2023: 24 hour Events: -SANIA -Diagnosed with partial SBO over weekend in setting of one episode of emesis, none in last 24h. Having BMs, currently on IVF and is NPO. -Feeling fine this morning, no abdominal sx, feeling hungry -CSF final negative -Remains on Unasyn, afebrile, WBC 12 from 13 Exam: Externalized VPS catheter connected to collecting chamber Decision Maker: Self Functional status prior to admission: Independent Home Environment: Others in the home: parent(s). Current Living Arrangements: home/apartment/condo. Accessibility Concerns: Lives in a 3rd floor apartment with an elevator, Patient can also navigate stairs, he wears a CPAP at home, He lives with his mother... Current Functional Ability: Assistive Person DME used at home: respiratory supplies (CPAP at night) DME Needed at Discharge: none anticipated Patient is insured through: Primary Insurance: MEDICARE Payor: MEDICARE / Plan: MEDICARE PART A & B / Product Type: *No Product type* / Secondary Insurance: MEDICAID [place] Last Physical Therapy Recommendation: home with home health with None Last Occupational Therapy Recommendation: with Plan for discharge is: Pending Hospital Course and PT/OT Recommendations Agency Referrals: Pending Hospital Course and PT/OT Recommendations Transportation: Family Barriers to discharge: Discharge materials planning analyst/CM following up as patient is anticipated to have OR on 06/30/2023. Following for any rehab re-evaluation closer to discharge and after OR. Plan going forward: Service Care Management will continue to follow and assist with discharge planning and coordination of care as indicated. Anticipated Date of Discharge: 07/01/2023 Vishal Padron RN RN/CM - Cellphone: [phone] Pager: [phone] Covering Service RN/CM * Op Note - Rhoda Jimenez MD - 06/29/2023 2:35 PM EDT [facility] [place] Operative Note Patient Name: Chapin Costa : [id number] MR#: [id number] Case Date: 06/29/2023 Surgeon: Surgeon(s) and Role: * Rhoda Jimenez MD - Primary * Laila Ricci MD - Resident - Assisting Preoperative diagnosis: hydrocephalus Postoperative diagnosis: hydrocephalus Procedure(s) (LRB): REVISION OR REPLACEMENT CSF SHUNT (WRVU 11.43) (Right) Anesthesia: General Estimated Blood Loss: 10 mL Specimens removed during surgery: None Drains: * No LDAs found * Surgical [...] Chapin Costa is a 52-year-old gentleman with congenital hydrocephalus whom I am following for ventriculoperitoneal shunt malfunction. Approximately 2 weeks ago he presented to the emergency department with fluid leaking from his abdominal incision, and was found to have a Enterococcus faecalis infection in the belly. His CSF cultures were completely negative. His shunt was externalized at the clavicle, and he has been on antibiotics for 2 weeks. ID has now deemed it safe to reimplant thedistal portion of the catheter. After discussion of risks, benefits, alternatives, he elected to undergo distal shunt revision. The patient was seen in his hospital room. An updated history and physical was obtained. Operative site was the right side of the chest, this is marked with green inupiat. The patient was taken back to the operating by anesthesia. General endotracheal anesthesia was induced without complication. Thepatient was positioned supine, his head was placed in a gel donut and turned to the left. His entire cranial incision, neck, and chest were prepped. The distal EVD catheter was disconnected and capped with a sterile. The cap was now covered with Tegaderm after being prepped into the field. The entire field was now draped in the usual sterile fashion. A timeout was undertaken. 2 g of cefazolin were administered intravenously. We began by opening the cranial incision exposing the proximal valve. In areas peritoneal catheter was opened and brought into the field. Approximately 2 cm segment of this catheter was cut, the existing distal catheter was now disconnected from the valve, and the areas catheter segment placed back on the valve. We confirmed that there was spontaneous, robust flow of CSF, and a bulldog was now placed over the end of the areas catheter segment. We now attempted to pull the remaining distal catheter out through the supraclavicular incision. The catheter snapped shortly after we attempted to pull segment of it out. We tried to follow the catheter proximally and pull out the additional fragments, however the catheter was heavily calcified and very brittle. We thenproceeded to try and remove residual catheter from the cranial incision. Here to, the catheter fragmented rapidly and we were unable to remove all of the catheter. We therefore decided to proceed andmake a new tunnel separately. We identified the midclavicular line in the space between the second and third ribs just below the clavicle. This was anesthetized with quarter percent Marcaine with epinephrine. A 15 blade was used to open the skin, and the Bovie was used to dissect down to the intercostal muscles just above the ribs. A Yoli clamp was now used to slide over the top of the rib, and open a small gap between the intercostal muscles. At this point, the shunt tunneler was brought intothe field and a tunnel was made between the cranial incision and the chest incision. The distal catheter was passed through this tunnel, and was now connected to the end of the existing shunt valve. This was secured with a 2-0 silk tie. We then proceeded to open the parietal pleura with Kellys until we could see the lung gliding underneath it clearly. We were now certain were in the pleural space. The distal shunt was now fed into this pleural space using DeBakey pickups without any kinks. Oncethe shunt was in good position, we proceeded to close. The chest incision was copiously irrigated with LR and closed in layered fashion. Interrupted 3-0 Vicryl's were used for the muscle, interrupted3-0 Vicryl used to the deep dermal layer, and the skin was closed with a 4-0 Monocryl in running subcuticular fashion. The scalp incision was now copiously irrigated with LR as well. We closed this in layered fashion taking care not to damage the shunt. The galea was closed with interrupted 2-0 Vicryl's, and the skin was closed with 4-0 nylon in running fashion. At the end of the case, all countswere correct. I was present for the entire procedure. Surgical Infection Prevention Bundle Used? N/A Attestation: Case Date: 06/29/2023 I was present and I participated during the entire procedure (does not need to include opening and closing). Rhoda Jimenez MD 07/04/2023 * Consult Note - Leighton Patel, PEARL GLUE OPERATOR - 06/29/2023 4:44 AM EDT Acute Care Surgery Inpatient Consult Note History of Present Illness: Chapin Costa is a 52 y.o. 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 He represented to the hospital with abdominal drainage, subjective fevers, and headache. He was found to have discontinuity of the distal aspect of his catheter with leakage of the CSF. The catheter was thereafter externalized and we were involved for removal of the catheter. Additionally IR was aspirated intra-abdominal abscesses that were positive for Enterococcusfaecalis. We are reengaged as roughly 72 hours ago the patient developed abdominal pain as well as nausea with 1 episode of emesis and has had decreasing stool output however still is passing bowel movements and having flatus. General surgery operations 06/20/23: distal shunt removal 24 hour events - NAEON - Started on mIVF - No episodes of N/V - x5 BM - Reported improvement in LUQ tenderness, passing flatus - Feels better this AM PSH: Past Surgical History: Procedure Laterality Date CARPAL TUNNEL RELEASE Right CHOLECYSTECTOMY, LAPAROSCOPIC IR ALL DRAINAGE PROCEDURES 06/18/2023 IR All Drainage Procedures Bentley Arceo MD [facility] INTERVENTIONL RAD PRO ALVEOLOPLASTY W EXTRACTIONS, 4 OR MORE TEETH, PER QUADRANT N/A 10/18/2020 ALVEOPLASTY,IN CONJUNCTION WITH EXTRACTIONS,PER QUADRANT,ENT (WRVU 4.06) performed by Shan Rivero MD at [facility] OSC PRO EXTRACTION, ERUPTED TOOTH OR EXPOSED ROOT N/A 10/18/2020 EXTRACTION, ERUPTED TOOTH OR EXPOSED ROOT (WRVU 0.62) performed by Shan Rivero MD at [facility] OSC PRO IMPACT TOOTH REM BONY W/COMP N/A 10/18/2020 SURGICAL EXTRACTIONS, REMOVAL OF IMPACTED TOOTH, COMPLETELY BONY WITH UNUSUAL SURGICAL COMPLICATIONS (WRVU 2.91) performed by Shan Rivero MD at [facility] OSC PRO IMPACT TOOTH REMOV COMP BONY N/A 10/18/2020 SURGICAL EXTRACTIONS, REMOVAL OF IMPACTED TOOTH, COMPLETELY BONY (WRVU 1.93) performed by Shan Rivero MD at [facility] OSC PRO REMOVAL ERUPTED TOOTH WITH ELEVATION OF MUCOPERIOSTEAL FLAP Bilateral 10/18/2020 SURGICAL EXTRACTIONS REQUIRING ELEVATION OF MUCOPERIOSTEAL FLAP AND REMOVAL OF BONE OR SECTION OF TOOTH (WRVU 1.09) performed by Shan Rivero MD at [facility] OSC PRO REMOVAL, COMPLETE CSF SHUNT, W/O REPLACE Right 06/20/2023 @REMOVAL OF COMPLETE CSF SHUNT, W/O REPLACEMENT (WRVU 7.38) [facility]/REVISION, CSF SHUNT Right 06/09/2023 REVISION OR REPLACEMENT CSF SHUNT (WRVU 11.43) performed by Rhoda Jimenez MD at [facility] MAIN OR PRO UNLISTED PROCEDURE NERVOUS SYSTEM Right 05/24/2022 EXPLORATION VENTRICULO-PERITONEAL SHUNT (WRVU 25.48) performed by Rhoda Jimenez MD at [facility] MAIN OR SHOULDER SURGERY ULNAR TUNNEL RELEASE Right VENTRICULOPERITONEAL SHUNT Multiple revisions - ~46 prior revisions Home Medications: Current Outpatient Medications Medication Instructions acetaminophen (TYLENOL) 500 mg, Oral, EVERY 6 HOURS PRN, T Aimovig Autoinjector 70 mg, Injection, EVERY 30 DAYS, On the of every month ARIPiprazole (ABILIFY) 10 mg, Oral, DAILY atorvastatin (LIPITOR) 10 mg, Oral, DAILY benztropine (Cogentin) 0.5 mg Tablet 1 tablet, Oral, NIGHTLY cholecalciferol, Vitamin D3, 50 mcg (2,000 unit) Capsule Oral, DAILY hydrOXYzine (ATARAX) 25 mg, Oral, DAILY Latuda 40 mg, Oral, EVERY EVENING levothyroxine (SYNTHROID) 25 mcg, Oral, DAILY metoprolol succinate XL (TOPROL-XL) 25 mg, Oral, DAILY omeprazole (PriLOSEC) [address] capsule Oral, DAILY oxyCODONE (ROXICODONE) 5 mg, Oral, EVERY 6 HOURS PRN polyethylene glycoL (MIRALAX) 17 g, Oral, DAILY PRN rizatriptan (MAXALT) 10 mg, Oral, PRN sertraline (ZOLOFT) 100 mg, Oral, DAILY testosterone cypionate (DEPOTESTOSTERONE CYPIONATE) 250 mg, Intramuscular, EVERY 14 DAYS topiramate (TOPAMAX) 25 mg, Oral, 2 TIMES DAILY Vitamin B-12 5,000 mcg Tablet, Sublingual Oral, DAILY Review of Systems: As stated above, otherwise ten system review negative Vitals: Last Value Range last 24 hrs Temperature Temp: 36.9 ??C (98.4 ??F) Temp: [36.8 ??C (98.2 ??F)-36.9 ??C (98.4 ??F)] Heart Rate Heart Rate: 61 Heart Rate from SpO2: 61 bpm Heart Rate: [56-69] Heart Rate From SP02 Min: 57 bpm Max: 73 bpm Blood Pressure BP: 114/83 BP: (110-141)/(75-98) BP (Arterial Line): -- Respiratory Rate Resp: 12 Resp: [12-25] SpO2 SpO2: 95 % SpO2: [87 %-96 %] O2 Device O2 Device: None (Room air) Weight/BMI Weight: -- Body mass index is 31.42 kg/m??. Intake/Output Summary (Last 24 hours) at 06/29/2023 0815 Last data filed at 06/29/2023 0750 Gross per 24 hour Intake 3208.66 ml Output 159 ml Net 3049.66 ml Regular diet NPO diet (Give Meds) Physical Exam: GEN: resting comfortably in bed, pleasant, conversant, NAD HEENT: normocephalic, atraumatic CHEST: comfortable work of breathing on RA CV: regular rate, well perfused ABD: soft, moderately distended and tender to palpation in the left upper quadrant, well healed RUQincision EXTR: moving all extremities spontaneously NEURO: awake and alert, grossly intact, nonfocal, follows commands, shunt connected to EVD Data Reviewed: Labs: Recent Labs 06/29/23 03206/28/23 0558 WBC 12.4* 13.6* HGB 17.4* 18.1* HCT 51.4* 52.0* PLATELET 284 253 Recent Labs 06/29/23 0326 06/28/23 0558 06/27/23 2159 NA 140 142 140 K 3.9 3.9 3.9 CL 106 104 103 CO2 21* 22 22 BUN 19 19 17 CREATININE 1.36 1.33 1.34 GLUCOSE 109 103 104 CALCIUM 9.6 9.8 9.9 MAGNESIUM -- -- 0.93 PHOS -- -- 3.9 No results for input(s): PROT, ALBUMIN, BILITOT, BILIDIR, ALKPHOS, AST, ALT in the last 72 hours. No results for input(s): LACTATEVEN in the last 72 hours. No results for input(s): PHART, ZYK3UZE, PO2ART, MNM6FDM in the last 72 hours. Studies: IMPRESSION 1. No new intra-abdominal or pelvic abscess. 2. Small residual soft tissue enhancement at the site of the previously described intra-abdominal abscess. 3. Decreased size of abdominal wall soft tissue abscesses. 4. Obstructing mid small bowel fecalized material. 5. Stable pulmonary nodules. Unlikely to be clinically significant in the absence of known metastatic disease. Impression and Recommendations: Chapin Costa is a 52 y.o. 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 At this time we were involved to assist with externalization of the catheter. Since he has also had drainage of intra-abdominal abscesses with Enterococcus faecalis growth. The ultimate plan is to convert the shunt to intra-pleural drainage. We are reengaged as the patient has had signs and symptoms of abdominal pain, nausea, and emesis and imaging concerning for possible bowel obstruction Based on history and imaging the patient does not have a leila bowel obstruction however likely hasa partially obstructing amount of stool in the mid small bowel that is associated with his symptoms. At this time do not recommend any surgical intervention. He has had improvement in symptoms with abowel regimen and the osmotic nature of the oral contrast from his CT scan. However should the patient develop nausea or emesis then an NG tube should be placed for decompression Improvement and evidence of resolution of SBO, now having stools and denying N/V, patient endorsingappetite. Recommendations: -No acute indication for surgical intervention -ADAT per primary -Ensure stable bowel regimen -Recommend continued maintenance fluid hydration, repletion of electrolytes, and minimization of narcotics Above recommendations discussed with primary team. All plans formulated in discussion with and directed by attending surgeon Dr. Murray. Thank you for this consult. If you have any questions, please page [phone]. Consult service will sign off Leighton Patel APRN 06/29/2023 Acute Care Surgery Service [phone] * Plan of Care - Josselyn Diaz RN - 06/29/2023 1:46 AM EDT Problem: Fall Injury Risk Goal: Absence of Fall and Fall-Related Injury Outcome: Ongoing (Interventions Implemented as Appropriate) Problem: Infection Goal: Absence of Infection Signs and Symptoms Outcome: Ongoing (Interventions Implemented as Appropriate) Problem: Adult Inpatient Plan of Care Goal: [...] Implemented as Appropriate) * Consult Note - Daniela Hughes MD - 06/28/2023 1:48 PM EDT Acute Care Surgery Inpatient Consult Note History of Present Illness: Chapin Costa is a 52 y.o. 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 He represented to the hospital with abdominal drainage, subjective fevers, and headache. He was found to have discontinuity of the distal aspect of his catheter with leakage of the CSF. The catheter was thereafter externalized and we were involved for removal of the catheter. Additionally IR was aspirated intra-abdominal abscesses that were positive for Enterococcusfaecalis. We are reengaged as roughly 72 hours ago the patient developed abdominal pain as well as nausea with 1 episode of emesis and has had decreasing stool output however still is passing bowel movements and having flatus. 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 Hyperlipidemia Hypertension Memory disorder Seizures Syncope and collapse Vision abnormalities related to hydrocephalus Patient Active Problem List Diagnosis Code 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 Z98.2 Persistent headaches R51.9 Headache R51.9 Cervicalgia M54.2 Seizures R56.9 Hydrocephalus G91.9 Congenital hydrocephalus Q03.9 Shunt malfunction T85.618A PSH: Past Surgical History: Procedure Laterality Date CARPAL TUNNEL RELEASE Right CHOLECYSTECTOMY, LAPAROSCOPIC IR ALL DRAINAGE PROCEDURES 06/18/2023 IR All Drainage Procedures Bentley Arceo MD [facility] INTERVENTIONL RAD PRO ALVEOLOPLASTY W EXTRACTIONS, 4 OR MORE TEETH, PER QUADRANT N/A 10/18/2020 ALVEOPLASTY,IN CONJUNCTION WITH EXTRACTIONS,PER QUADRANT,ENT (WRVU 4.06) performed by Shan Rivero MD at [facility] OSC PRO EXTRACTION, ERUPTED TOOTH OR EXPOSED ROOT N/A 10/18/2020 EXTRACTION, ERUPTED TOOTH OR EXPOSED ROOT (WRVU 0.62) performed by Shan Rivero MD at [facility] OSC PRO IMPACT TOOTH REM BONY W/COMP N/A 10/18/2020 SURGICAL EXTRACTIONS, REMOVAL OF IMPACTED TOOTH, COMPLETELY BONY WITH UNUSUAL SURGICAL COMPLICATIONS (WRVU 2.91) performed by Shan Rivero MD at [facility] OSC PRO IMPACT TOOTH REMOV COMP BONY N/A 10/18/2020 SURGICAL EXTRACTIONS, REMOVAL OF IMPACTED TOOTH, COMPLETELY BONY (WRVU 1.93) performed by Shan Rivero MD at [facility] OSC PRO REMOVAL ERUPTED TOOTH WITH ELEVATION OF MUCOPERIOSTEAL FLAP Bilateral 10/18/2020 SURGICAL EXTRACTIONS REQUIRING ELEVATION OF MUCOPERIOSTEAL FLAP AND REMOVAL OF BONE OR SECTION OF TOOTH (WRVU 1.09) performed by Shan Rivero MD at [facility] OSC PRO REMOVAL, COMPLETE CSF SHUNT, W/O REPLACE Right 06/20/2023 @REMOVAL OF COMPLETE CSF SHUNT, W/O REPLACEMENT (WRVU 7.38) [facility] PRO REPLACEMENT/REVISION, CSF SHUNT Right 06/09/2023 REVISION OR REPLACEMENT CSF SHUNT (WRVU 11.43) performed by Rhoda Jimenez MD at [facility] MAIN OR PRO UNLISTED PROCEDURE NERVOUS SYSTEM Right 05/24/2022 EXPLORATION VENTRICULO-PERITONEAL SHUNT (WRVU 25.48) performed by Rhoda Jimenez MD at [facility] MAIN OR SHOULDER SURGERY ULNAR TUNNEL RELEASE Right VENTRICULOPERITONEAL SHUNT Multiple revisions - ~46 prior revisions Home Medications: Current Outpatient Medications Medication Instructions acetaminophen (TYLENOL) 500 mg, Oral, EVERY 6 HOURS PRN, T Aimovig Autoinjector 70 mg, Injection, EVERY 30 DAYS, On the of every month ARIPiprazole (ABILIFY) 10 mg, Oral, DAILY atorvastatin (LIPITOR) 10 mg, Oral, DAILY benztropine (Cogentin) 0.5 mg Tablet 1 tablet, Oral, NIGHTLY cholecalciferol, Vitamin D3, 50 mcg (2,000 unit) Capsule Oral, DAILY hydrOXYzine (ATARAX) 25 mg, Oral, DAILY Latuda 40 mg, Oral, EVERY EVENING levothyroxine (SYNTHROID) 25 mcg, Oral, DAILY metoprolol succinate XL (TOPROL-XL) 25 mg, Oral, DAILY omeprazole (PriLOSEC) [address] capsule Oral, DAILY oxyCODONE (ROXICODONE) 5 mg, Oral, EVERY 6 HOURS PRN polyethylene glycoL (MIRALAX) 17 g, Oral, DAILY PRN rizatriptan (MAXALT) 10 mg, Oral, PRN sertraline (ZOLOFT) 100 mg, Oral, DAILY testosterone cypionate (DEPOTESTOSTERONE CYPIONATE) 250 mg, Intramuscular, EVERY 14 DAYS topiramate (TOPAMAX) 25 mg, Oral, 2 TIMES DAILY Vitamin B-12 5,000 mcg Tablet, Sublingual Oral, DAILY Allergies Allergies Allergen Reactions Latex Other reaction(s): [...] Relation Age of Onset Muscular Dystrophy Cousin Denies history of bleeding or clotting disorders. Denies history of reactions to anesthesia. Social History: Social History Tobacco Use Smoking status: Never Smokeless tobacco: Never Vaping Use Vaping Use: Never used Substance Use Topics Alcohol use: No Drug use: No Review of Systems: As stated above, otherwise ten system review negative Vitals: Last Value Range last 24 hrs Temperature Temp: 36.7 ??C (98 ??F) Temp: [36.7 ??C (98 ??F)-37.1 ??C (98.8 ??F)] Heart Rate Heart Rate: 69 Heart Rate from SpO2: 73 bpm Heart Rate: [55-75] Heart Rate From SP02 Min: 55 bpm Max: 74 bpm Blood Pressure BP: 134/89 BP: (121-147)/(82-98) BP (Arterial Line): -- Respiratory Rate Resp: 14 Resp: [13-22] SpO2 SpO2: 96 % SpO2: [94 %-97 %] O2 Device O2 Device: None (Room air) Weight/BMI Weight: -- Body mass index is 31.42 kg/m??. Intake/Output Summary (Last 24 hours) at 06/28/2023 1348 Last data filed at 06/28/2023 1219 Gross per 24 hour Intake 2254 ml Output 658 ml Net 1596 ml NPO diet (Give Meds) Physical Exam: GEN: resting comfortably in bed, pleasant, conversant, NAD HEENT: normocephalic, atraumatic CHEST: comfortable work of breathing on RA CV: regular rate, well perfused ABD: soft, moderately distended and tender to palpation in the left upper quadrant, well healed RUQincision EXTR: moving all extremities spontaneously NEURO: awake and alert, grossly intact, nonfocal, follows commands, shunt connected to EVD Data Reviewed: Labs: Recent Labs 06/28/23 0558 06/26/23 0415 WBC 13.6* 11.1* HGB 18.1* 17.8* HCT 52.0* 51.4* PLATELET 253 269 Recent Labs 06/28/23 0558 06/27/23 2159 06/26/23 0415 NA 142 140 139 K 3.9 3.9 4.1 CL 104 103 105 CO2 22 22 20* BUN 19 17 15 CREATININE 1.33 1.34 1.17 GLUCOSE 103 104 114 CALCIUM 9.8 9.9 9.6 MAGNESIUM -- 0.93 -- PHOS -- 3.9 -- No results for input(s): PROT, ALBUMIN, BILITOT, BILIDIR, ALKPHOS, AST, ALT in the last 72 hours. No results for input(s): LACTATEVEN in the last 72 hours. No results for input(s): PHART, VPY0OEQ, PO2ART, FVK9CSJ in the last 72 hours. Studies: IMPRESSION 1. No new intra-abdominal or pelvic abscess. 2. Small residual soft tissue enhancement at the site of the previously described intra-abdominal abscess. 3. Decreased size of abdominal wall soft tissue abscesses. 4. Obstructing mid small bowel fecalized material. 5. Stable pulmonary nodules. Unlikely to be clinically significant in the absence of known metastatic disease. Impression and Recommendations: Chapin Costa is a 52 y.o. 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 At this time we were involved to assist with externalization of the catheter. Since he has also had drainage of intra-abdominal abscesses with Enterococcus faecalis growth. The ultimate plan is to convert the shunt to intra-pleural drainage. We are reengaged as the patient has had signs and symptoms of abdominal pain, nausea, and emesis and imaging concerning for possible bowel obstruction Based on history and imaging the patient does not have a leila bowel obstruction however likely hasa partially obstructing amount of stool in the mid small bowel that is associated with his symptoms. At this time do not recommend any surgical intervention. However should the patient develop nauseaor emesis then an NG tube should be placed for decompression Recommendations: -No acute indication for surgical intervention -If the patient develops worsening nausea or develops emesis a NG tube should be placed for decompression and KUB should be performed for confirmation of the tube -Recommend maintenance fluid hydration and repletion of electrolytes Above recommendations discussed with primary team. All plans formulated in discussion with and directed by attending surgeon Dr. Hughes. Thank you for this consult. If you have any questions, please page [phone]. Consult service will continue to follow along John Clements MD 06/28/2023 Acute Care Surgery Service [phone] Attending Addendum I have seen and examined the patient, I have reviewed the vitals, labs and pertinent imaging. I have seen this patient in conjunction with the resident. I have indepently reviewed and assessed the data for this patient. The management plan was formulated in discussion with me. I have the following comments: Mr. Costa is a 52yoM with extensive prior surgical history who we are now consulted for concern of bowel obstruction. He had a CT scan earlier today with an area of small bowel fecalization which is causing an apparent obstruction. He was initially walking the hallways when I went to see him, wewalked together back to his room where his exam demonstrated really no particular tenderness exceptwith deep palpation over the area in question. No nausea/emesis today. We discussed that at this point, would start with bowel rest, and see whether this starts to clear on its own - the PO contrast he had today may also help with this. He knows that if he develops nausea/emesis then we would placean NGT at that time. We will follow with you, please contact us if any changes in status. Daniela Hughes MD [phone] * Plan of Care - Josselyn Diaz RN - 06/28/2023 1:13 AM EDT Problem: Fall Injury Risk Goal: Absence of Fall and Fall-Related Injury Outcome: Ongoing (Interventions Implemented as Appropriate) Problem: Infection Goal: Absence of Infection Signs and Symptoms Outcome: Ongoing (Interventions Implemented as Appropriate) Problem: Adult Inpatient Plan of Care Goal: [...] as Appropriate) * Plan of Care - Aria Ortega RN - 06/27/2023 5:56 AM EDT OUTCOME EVALUATION NOTE: OUTCOME SUMMARY: No acute events overnight. PT VSS. Pt A&Ox4. Pt states that his nausea is improved with the newmedication. Pt had 7-10cc of CFS out Q2hrs. EVD is open at zero and leveled to his clavicle. PLAN MOVING FORWARD: Awaiting CSF cultures to be able to internalize his shunt PT/OT Surgical planning CARE PLAN GOAL OUTCOME EVALUATION: Problem: Fall Injury Risk Goal: Absence of Fall and Fall-Related Injury Outcome: Ongoing (Interventions Implemented as Appropriate) Problem: Infection Goal: Absence of Infection Signs and Symptoms Outcome: Ongoing (Interventions Implemented as Appropriate) Problem: Adult Inpatient Plan of Care Goal: [...] as Appropriate) * Plan of Care - Linsey Lynn RN - 06/26/2023 6:55 AM EDT Patient remains alert and oriented x4. VSS on RA. SB-NSR on tele. Tele alarmed this evening for 4-beats of [place]; patient asymptomatic, vitals stable. Dr. Clifton made aware. No new orders, continue monitoring. Patient also c/o abd pain overnight. Reported 3/10 aching/cramping just above umbilicus. Denied nausea. PRN tylenol, Tums, and heat application helped to reduce pain to 1/10. Externalized shunt remains in place; open at 0cm, leveled at the clavicle. Q2H Output, 10-17 mLs. NS team rounded this AM, changed R chest dressing. Per NS team instruction, patient is able to move without being clamped, and no restrictions on HOB since shunt is in place and working. IV ABX; Q6H Unasyn. Patient tolerating well. Patient has had good po intake. Regular diet. Reports last BM yesterday. Patient able to ambulate up in hallway in the evening. Q2H Neuro's; Patient resting some in-between checks Problem: Adult Inpatient Plan of Care Goal: [...] Implemented as Appropriate) * Care Management - Vishal Padron RN - 06/25/2023 6:46 AM EDT OFFICE OF CARE MANAGEMENT PROGRESS NOTE LOS: Hospital Day 9 days Chart reviewed, care reviewed with primary team and at interdisciplinary rounds. Patient continues to meet inpatient level of care related to: SD and remains in the hospital related to provider note of 06/24/2023: PLAN/RECS: - Continue to drain CSF via externalized shunt. Fragile distal catheter will require extra care to make sure it does not get pulled when patient mobilizing. - ID consult for abx guidance and to help determine timing/location for distal catheter reimplantation surgery/how long to await final culture growth. - IR consult for drainage of abdominal fluid collection, f/u cultures - General Surgery consult for deeper peritoneal fluid collection, now s/p surgical removal of distal catheter, appreciate involvement - f/u CSF cultures. NGTD so far. - Ok for Q2NC - SBP 90-160 - DVT ppx with SCDs, SQH - Ok to ADAT per ACS Functional status prior to admission: Independent Home Environment: Others in the home: parent(s). Current Living Arrangements: home/apartment/condo. Accessibility Concerns: Lives in a 3rd floor apartment with an elevator, Patient can also navigate stairs, he wears a CPAP at home, He lives with his mother... Current Functional Ability: Assistive Person DME used at home: respiratory supplies (CPAP at night) DME Needed at Discharge: Pending PT / OT Recommendations Last Physical Therapy Recommendation: home with home health with None Last Occupational Therapy Recommendation: with Patient is insured through: Primary Insurance: MEDICARE Payor: MEDICARE / Plan: MEDICARE PART A & B / Product Type: *No Product type* / Secondary Insurance: MEDICAID [place] Prescription Coverage: Yes Preferred Pharmacy: [facility] [place], [place] - [address] [address] Plan for discharge is: Pending Hospital Course and PT/OT Recommendations Agency Referrals & Follow-up Care: Pending Hospital Course and PT/OT Recommendations Transportation: family or friend will provide Barriers to discharge: Discharge materials planning analyst/CM following for OR next week and reassessment by rehab services. Plan PO Antibiotics at this time. Legal Guardians: Tracy Fregoso Relationship: Guardianship [phone] Plan going forward: Service Care Management will continue to follow and assist with discharge planning and coordination of care as indicated. Anticipated Date of Discharge: 07/01/2023 Vishal Padron RN RN/CM - Cellphone: [phone] Pager: [phone] Covering Service RN/CM * Plan of Care - Olga Levin RN - 06/24/2023 7:26 PM EDT Problem: Fall Injury Risk Goal: Absence of Fall and Fall-Related Injury Outcome: Ongoing (Interventions Implemented as Appropriate) Problem: Infection Goal: Absence of Infection Signs and Symptoms Outcome: Ongoing (Interventions Implemented as Appropriate) Problem: Adult Inpatient Plan of Care Goal: [...] as Appropriate) * Plan of Care - Linsey Lynn RN - 06/24/2023 6:45 PM EDT Patient remains alert and oriented x4. VSS on RA. NSR on tele. Patient has denied pain today. Externalized shunt remains in place and open at 0cm, leveled at the clavicle. Output has been 10-15mL Q2H. Patient continues to have good PO intake. BM today. Able to ambulate up in hallway and BR intermittently. Q6H IV ABX; Unasyn. Patient tolerating well. Problem: Adult Inpatient Plan of Care Goal: [...] as Appropriate) * Plan of Care - Edwina Seaman RN - 06/24/2023 7:32 AM EDT OUTCOME EVALUATION NOTE: OUTCOME SUMMARY: AAOx4, moves all extremities x4, pupils round and reactive (right eye remains disconjugate) remainson RA, denies any pain, externalized shunt remains in place (open at 0cm level at clavicle) drain 11-17mL q2, urine output 400 mL overnight, SB-NSR PLAN MOVING FORWARD: q2 neuro, q2 VS, syst <180, plan for OR on Thursday INDIVIDUALIZED FALL PREVENTION INTERVENTIONS: Patient-specific fall risk factors per assessment: [current deficits]: IV line, externalized shunt Assistance [level of assistance required for transfers and ambulation]: x1 assist Supervision [direct monitoring required during toileting and ADLs]: hands on Surveillance [continuous indirect monitoring]: bed alarm, telemetry, SaO2 monitor Patient-specific fall prevention interventions for sensory deficits provided, if applicable: [X] N/A CARE PLAN GOAL OUTCOME EVALUATION: Problem: Fall Injury Risk Goal: Absence of Fall and Fall-Related Injury Outcome: Ongoing (Interventions Implemented as Appropriate) Problem: Infection Goal: Absence of Infection Signs and Symptoms Outcome: Ongoing (Interventions Implemented as Appropriate) Problem: Adult Inpatient Plan of Care Goal: [...] as Appropriate) * Plan of Care - Linsey Lynn RN - 06/23/2023 6:55 PM EDT Patient remains alert and oriented x4. VSS on RA. NSR on tele. Patient denies pain. Externalized shunt remains in place; open at 0cm, leveled at clavicle. Output 10-17mL Q2H. Patient continues to have good PO intake. Ambulating intermittently up in hallway, to BR. Problem: Adult Inpatient Plan of Care Goal: [...] Injury Outcome: Ongoing (Interventions Implemented as Appropriate) Problem: Infection Goal: Absence of Infection Signs and Symptoms Outcome: Ongoing (Interventions Implemented as Appropriate) Problem: Pain Acute Goal: Acceptable Pain Control and Functional Ability Outcome: Ongoing (Interventions Implemented as Appropriate) * Plan of Care - Josselyn Diaz RN - 06/23/2023 5:00 AM EDT Problem: Fall Injury Risk Goal: Absence of Fall and Fall-Related Injury Outcome: Ongoing (Interventions Implemented as Appropriate) Problem: Infection Goal: Absence of Infection Signs and Symptoms Outcome: Ongoing (Interventions Implemented as Appropriate) Problem: Adult Inpatient Plan of Care Goal: [...] as Appropriate) * Plan of Care - Linsey Lynn RN - 06/22/2023 7:05 PM EDT Patient alert and oriented x4. VSS on RA. NSR on tele. Patient has denied pain today. Patient ambulated up in hallway. Externalized shunt remains in place. Output has been 10-16ml Q2H. Patient has had good PO intake. Voiding without difficulty. No BM today, has not wanted to take BM regime. IV ABX; Vanco & Rocephin Q2H Neuro's Q2H VS Plan to do allergy test dose of amoxicillin. Reviewed with special education preschool teacher, re-timed for this evening forclose monitoring. Endorsed PM RN. Problem: Fall Injury Risk Goal: Absence of Fall and Fall-Related Injury Outcome: Ongoing (Interventions Implemented as Appropriate) Problem: Infection Goal: Absence of Infection Signs and Symptoms Outcome: Ongoing (Interventions Implemented as Appropriate) Problem: Adult Inpatient Plan of Care Goal: [...] Implemented as Appropriate) * Care Management - Shaunna Yarbrough RN - 06/22/2023 2:41 PM EDT OFFICE OF CARE MANAGEMENT PROGRESS NOTE LOS: Hospital Day 6 days Chart reviewed, care reviewed with primary team and at interdisciplinary rounds. Patient continues to meet inpatient level of care related to infection, need for drain Decision Maker: Self Functional status prior to admission: Independent Home Environment: Others in the home: parent(s). Current Living Arrangements: home/apartment/condo. Accessibility Concerns: Lives in a 3rd floor apartment with an elevator, Patient can also navigate stairs, he wears a CPAP at home, He lives with his mother... Current Functional Ability: Assistive Person DME used at home: respiratory supplies (CPAP at night) DME Needed at Discharge: No Patient is insured through: Primary Insurance: MEDICARE Payor: MEDICARE / Plan: MEDICARE PART A & B / Product Type: *No Product type* / Secondary Insurance: MEDICAID [place] Last Physical Therapy Recommendation: home with home health with None Last Occupational Therapy Recommendation: with Plan for discharge is: Home w/o Services Outpatient Agency/Support Group Needs: None Agency Referrals: N/A Transportation: family or friend will provide Barriers to discharge: None Plan going forward: Per provider, pt not yet medically ready for discharge. Per provider, ID plan pending. Further needs pending course. Care Management will continue to follow and assist with discharge planning and coordination of care as indicated. Anticipated Date of Discharge: 06/26/2023 Shaunna Yarbrough RN Office of Care Management * Plan of Care - Lalit Belle RN - 06/21/2023 5:49 PM EDT OUTCOME EVALUATION NOTE: OUTCOME SUMMARY: Pt AOx4, able to follow commands in all extremities, Q2 neuro checks WDL. EVD w/ 10-16ml of clear drainage throughout shift, see flowsheet for details. Transitioned to reg diet, ate 100% of meals. Upfor sevaral walks around unit. Adequate UOP, 1 BM. PLAN MOVING FORWARD: AM Labs Q2 Neuro Q2 EVD SBP <180 * Plan of Care - Josselyn Diaz RN - 06/21/2023 6:27 AM EDT Problem: Fall Injury Risk Goal: Absence of Fall and Fall-Related Injury Outcome: Ongoing (Interventions Implemented as Appropriate) Problem: Infection Goal: Absence of Infection Signs and Symptoms Outcome: Ongoing (Interventions Implemented as Appropriate) Problem: Adult Inpatient Plan of Care Goal: [...] as Appropriate) * Brief Op Note - Arely Murray MD - 06/20/2023 2:34 PM EDT Brief Operative Note Patient Name: Chapin Costa : [id number] MR#: [id number] Case Date: 06/20/2023 Surgeon: Surgeon(s) and Role: * Arely Murray MD - Primary * Delgado Denis MD - Resident - Assisting Preoperative diagnosis: POINT OF CARE 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 revision Postoperative diagnosis: POINT OF CARE 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 revision Procedure(s) (LRB): LAPAROSCOPY, DIAGNOSTIC, ABDOMEN (WRVU 5.14) (N/A) Anesthesia: General Findings: Shunt identified and found to be disconnected. Distal/ intra-abdominal segment easily removed measuring 30 cm and containing the metal connecter. 7.5 cm of the cephalad portion of the shuntwas removed but broke under tension when trying to remove. Wound irrigated and closed. Complications: none Estimated Blood Loss: 2 mls Specimens removed during surgery: Order Name Source Comment Collection Info Order Time SPECIMEN TO PATHOLOGY POINT OF CARE 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 revision explanted POINT OF CARE 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 catheter excision 06/20/2023 2:24 PM Time specimen removed from patient: 2:24 PM Number of tissue samples (in container) 1 Fluids: 300 mls PRBCs: none (See Anesthesia Record/Report for [...] Bundle Used? N/A * Op Note - Arely Murray MD - 06/20/2023 2:16 PM EDT [facility] [place] Operative Note Patient Name: Chapin Costa : [id number] MR#: [id number] Case Date: 06/20/2023 Surgeon: Surgeon(s) and Role: * Arely Murray MD - Primary * Delgado Denis MD - Resident - Assisting Preoperative diagnosis: POINT OF CARE 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 revision Postoperative diagnosis: POINT OF CARE 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 revision Procedure(s) (LRB): @REMOVAL OF COMPLETE CSF SHUNT, W/O REPLACEMENT (WRVU 7.38) (Right) Findings: Shunt identified and found to be disconnected. Distal/ intra-abdominal segment easily removed measuring 30 cm and containing the metal connecter. 7.5 cm of the cephalad portion of the shuntwas removed but broke under tension when trying to remove. Wound irrigated and closed. Anesthesia: General Estimated Blood Loss: 2 mL Specimens removed during surgery: Order Name Source Comment Collection Info Order Time SPECIMEN TO PATHOLOGY POINT OF CARE 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 revision explanted POINT OF CARE 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 catheter excision 06/20/2023 2:24 PM Time specimen removed from patient: 2:24 PM Number of tissue samples (in container) [...] Costa is a 52 y.o. 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 He was then admitted again on 06/15 due to CSF leak from abdominal incision with slightly elevated WBC from his usual chronic leukocytosis s/p externalization of the shunt with CSF cultures NGTD. IR had since aspirated the superficial fluid collection. General surgery was consulted for removal of the intra-abdominal portion of the POINT OF CARE 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. Procedure Description: The patient was taken to the operating room and positioned supine on the operating room table. General anesthesia was induced and the patient was orotracheally intubated. The patient was prepped and draped in the usual sterile fashion. A surgical timeout was conducted and alloperating room members were in agreement with the surgery as planned. We opened the prior RUQ incision and dissected down to the shunt. We spread scar tissue around the shunt and then removed it witha clamp. There was no resistance. The segment measured 30cm and contained the metal connector. We then did the same to the proximal portion of the shunt however this section was calcified and much more immobile. We dissected up along the tube and pulled. The tubing actually broke and we were left with an additional 7.5cm portion. Both segments were sent as specimen. Hemostasis was ensured in the wound. The dermis was reapproximated with vicryl and the skin was closed with Monocryl. Exofin was applied. All counts were correct. Surgical Infection Prevention Bundle Used? No Attestation: Case Date: 06/20/2023 I was present and I participated during the entire procedure (does not need to include opening and closing). ARELY D TREVOR, MD 06/21/2023 * Plan of Care - Aria Ortega RN - 06/20/2023 5:58 AM EDT OUTCOME EVALUATION NOTE: OUTCOME SUMMARY: Pt VSS. Pt NPO after midnight for Laparoscopic surgery today. Pt is A&O x 4, Pupils are equal but dysconjugate. He has an externalized shut leveled at 0. Output has been 10-15cc Q2hrs. No complaints of pain overnight. PLAN MOVING FORWARD: Laparoscopic surgery [id number] exams Q2 EVD output CARE PLAN GOAL OUTCOME EVALUATION: Problem: Fall Injury Risk Goal: Absence of Fall and Fall-Related Injury Outcome: Ongoing (Interventions Implemented as Appropriate) Problem: Infection Goal: Absence of Infection Signs and Symptoms Outcome: Ongoing (Interventions Implemented as Appropriate) Problem: Adult Inpatient Plan of Care Goal: [...] as Appropriate) * Plan of Care - Russell Gannon RN - 06/19/2023 6:23 PM EDT OUTCOME EVALUATION NOTE: OUTCOME SUMMARY: No acute neurological changes; short term memory challenges and dysconjugate gaze noted. VSS on RA with some ST depression found on 5-lead and not appreciated on 12-lead; provider aware. Externalizedshunt in situ intact with adequate output. Safety maintained. PLAN MOVING FORWARD: Stepdown status q2h assessments INDIVIDUALIZED FALL PREVENTION INTERVENTIONS: Patient-specific fall risk factors per assessment: EVD management Assistance: 1 assist Supervision: Hands on Surveillance: Bed locked in low position, call shell within reach, purposeful hourly rounding, clutter free environment, bed/chair alarm on, family at bedside Patient-specific fall prevention interventions for sensory deficits provided: Yes CPG GOAL OUTCOME EVALUATION: Continue care plan as documented. Problem: Fall Injury Risk Goal: Absence of Fall and Fall-Related Injury Outcome: Ongoing (Interventions Implemented as Appropriate) Problem: Infection Goal: Absence of Infection Signs and Symptoms Outcome: Ongoing (Interventions Implemented as Appropriate) Problem: Adult Inpatient Plan of Care Goal: [...] as Appropriate) * Plan of Care - Russell Gannon RN - 06/18/2023 4:13 PM EDT OUTCOME EVALUATION NOTE: OUTCOME SUMMARY: Patient is a pleasant man here with some known short-term memory problems and slightly diminished strengths that improved today. EVD managed as ordered with marked drainage as already circled. VSS onRA. To IR today via RN escort, tolerated well. Denies pain. Safety maintained. PLAN MOVING FORWARD: EVD documentation q2h NC/VS q2h INDIVIDUALIZED FALL PREVENTION INTERVENTIONS: Patient-specific fall risk factors per assessment: EVD management, hospital environment Assistance: SBA Supervision: Arms reach, Hands on Surveillance: Bed locked in low position, call shell within reach, purposeful hourly rounding, clutter free environment, bed/chair alarm on, family at bedside Patient-specific fall prevention interventions for sensory deficits provided: Yes CPG GOAL OUTCOME EVALUATION: Continue care plan as documented. Problem: Fall Injury Risk Goal: Absence of Fall and Fall-Related Injury Outcome: Ongoing (Interventions Implemented as Appropriate) Problem: Infection Goal: Absence of Infection Signs and Symptoms Outcome: Ongoing (Interventions Implemented as Appropriate) Problem: Adult Inpatient Plan of Care Goal: [...] Implemented as Appropriate) * Consult Note - Vivian Lawson MD - 06/18/2023 2:20 PM EDT Acute Care Surgery Inpatient Consult Note Patient Name: Chapin Costa MR#: [id number] : 1970 Admission Date: 06/16/2023 Primary Team: NSGY Consult Requested by: Rhoda Jimenez MD Reason for Consult: intraabdominal fluid collection near POINT OF CARE 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 tip, ?I&D Time Paged for Consult: 09:22 Time of Callback: 09:40 Time of Assessment: 10:30 History of Present Illness: Chapin Costa is a 52 y.o. 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 General Surgery was consulted at that time for assistance with abdominal exposure which the NSGY team ended up not needing. On 06/15, patient represented to the ED with progressive headache and abdominal pain, found to have discontinuity of the distal catheter with leakage of CSF out the incision now s/p externalization. CT scan revealed fluid collection along the abdominal wall as well as a 2.7cm intraabdominal fluid collection near the catheter tip. Patient was initially started on meropenem/flagy/vanc, ID consulted and have since discontinued flagyl/meropenem and started rocephin. ID also recommended drainage of the fluid collections. Was initially consulted with plans to aspirate the abdominal wall fluid collection, however they do not feel there is a safe window to drain the intraabdominal collection percutaneously, thus General Surgery was consulted. Patient reports his mid abdominal pain has since resolved with IV abx therapy. Denies symptoms of systemic infection. No fever/chills. No other complaints. 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 Hyperlipidemia Hypertension Memory disorder Seizures Syncope and collapse Vision abnormalities related to hydrocephalus Patient Active Problem List Diagnosis Code 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 Z98.2 Persistent headaches R51.9 Headache R51.9 Cervicalgia M54.2 Seizures R56.9 Hydrocephalus G91.9 Congenital hydrocephalus Q03.9 Shunt malfunction T85.618A PSH: Past Surgical History: Procedure Laterality Date CARPAL TUNNEL RELEASE Right CHOLECYSTECTOMY, LAPAROSCOPIC PRO ALVEOLOPLASTY W EXTRACTIONS, 4 OR MORE TEETH, PER QUADRANT N/A 10/18/2020 ALVEOPLASTY,IN CONJUNCTION WITH EXTRACTIONS,PER QUADRANT,ENT (WRVU 4.06) performed by Shan Rivero MD at [facility] PRO EXTRACTION, ERUPTED TOOTH OR EXPOSED ROOT N/A 10/18/2020 EXTRACTION, ERUPTED TOOTH OR EXPOSED ROOT (WRVU 0.62) performed by Shan Rivero MD at [facility] PRO IMPACT TOOTH REM BONY W/COMP N/A 10/18/2020 SURGICAL EXTRACTIONS, REMOVAL OF IMPACTED TOOTH, COMPLETELY BONY WITH UNUSUAL SURGICAL COMPLICATIONS (WRVU 2.91) performed by Shan Rivero MD at [facility] PRO IMPACT TOOTH REMOV COMP BONY N/A 10/18/2020 SURGICAL EXTRACTIONS, REMOVAL OF IMPACTED TOOTH, COMPLETELY BONY (WRVU 1.93) performed by Shan Rivero MD at [facility] PRO REMOVAL ERUPTED TOOTH WITH ELEVATION OF MUCOPERIOSTEAL FLAP Bilateral 10/18/2020 SURGICAL EXTRACTIONS REQUIRING ELEVATION OF MUCOPERIOSTEAL FLAP AND REMOVAL OF BONE OR SECTION OF TOOTH (WRVU 1.09) performed by Shan Rivero MD at [facility] PRO REPLACEMENT/REVISION, CSF SHUNT Right 06/09/2023 REVISION OR REPLACEMENT CSF SHUNT (WRVU 11.43) performed by Rhoda Jimenez MD at [facility] OR PRO UNLISTED PROCEDURE NERVOUS SYSTEM Right 05/24/2022 EXPLORATION VENTRICULO-PERITONEAL SHUNT (WRVU 25.48) performed by Rhoda Jimenez MD at [facility] MA[facility] OR SHOULDER SURGERY ULNAR TUNNEL RELEASE Right VENTRICULOPERITONEAL SHUNT Multiple revisions - ~46 prior revisions Home Medications: Current Outpatient Medications Medication Instructions acetaminophen (TYLENOL) 500 mg, Oral, EVERY 6 HOURS PRN, T Aimovig Autoinjector 70 mg, Injection, EVERY 30 DAYS, On the of every month ARIPiprazole (ABILIFY) 10 mg, Oral, DAILY atorvastatin (LIPITOR) 10 mg, Oral, DAILY benztropine (Cogentin) 0.5 mg Tablet 1 tablet, Oral, NIGHTLY cholecalciferol, Vitamin D3, 50 mcg (2,000 unit) Capsule Oral, DAILY hydrOXYzine (ATARAX) 25 mg, Oral, DAILY Latuda 40 mg, Oral, EVERY EVENING levothyroxine (SYNTHROID) 25 mcg, Oral, DAILY metoprolol succinate XL (TOPROL-XL) 25 mg, Oral, DAILY omeprazole (PriLOSEC) [address] capsule Oral, DAILY oxyCODONE (ROXICODONE) 5 mg, Oral, EVERY 6 HOURS PRN polyethylene glycoL (MIRALAX) 17 g, Oral, DAILY PRN rizatriptan (MAXALT) 10 mg, Oral, PRN sertraline (ZOLOFT) 100 mg, Oral, DAILY testosterone cypionate (DEPOTESTOSTERONE CYPIONATE) 250 mg, Intramuscular, EVERY 14 DAYS topiramate (TOPAMAX) 25 mg, Oral, 2 TIMES DAILY Vitamin B-12 5,000 mcg Tablet, Sublingual Oral, DAILY Allergies Allergies Allergen Reactions Latex Other reaction(s): hives with latex powdered gloves Other reaction(s): hives with latex powdered gloves Penicillins Other reaction(s): Anaphylaxsis, RASH Tegaderm [Transparent Dressings] Itching and Other (See [...] Relation Age of Onset Muscular Dystrophy Cousin Denies history of bleeding or clotting disorders. Denies history of reactions to anesthesia. Social History: Social History Tobacco Use Smoking status: Never Smokeless tobacco: Never Vaping Use Vaping Use: Never used Substance Use Topics Alcohol use: No Drug use: No Review of Systems: As stated above, otherwise ten system review negative Vitals: Last Value Range last 24 hrs Temperature Temp: 36.6 ??C (97.9 ??F) Temp: [36.6 ??C (97.9 ??F)-36.7 ??C (98.1 ??F)] Heart Rate Heart Rate: 82 Heart Rate from SpO2: 72 bpm Heart Rate: [58-88] Heart Rate From SP02 Min: 55 bpm Max: 89 bpm Blood Pressure BP: (!) 133/92 BP: (112-133)/(77-98) BP (Arterial Line): -- Respiratory Rate Resp: 18 Resp: [16-24] SpO2 SpO2: 93 % SpO2: [92 %-95 %] O2 Device O2 Device: None (Room air) Weight/BMI Weight: -- There is no height or weight on file to calculate BMI. Intake/Output Summary (Last 24 hours) at 06/18/2023 1020 Last data filed at 06/18/2023 1000 Gross per 24 hour Intake 2252 ml Output 1419 ml Net 833 ml Regular diet Physical Exam: GEN: resting comfortably in bed, pleasant, conversant, NAD HEENT: normocephalic, atraumatic CHEST: comfortable work of breathing on RA CV: regular rate, well perfused ABD: soft, nondistended, non tender. EXTR: moving all extremities spontaneously NEURO: awake and alert, grossly intact, nonfocal, follows commands Data Reviewed: Labs: Recent Labs 06/18/23 0210 06/17/23 0350 06/16/23 1315 06/16/23 1120 WBC 11.1* 12.3* -- 17.8* HGB 15.7 16.6* -- 17.9* HCT 46.3 47.6 -- 51.4* PLATELET 201 209 -- 236 PT -- -- 13.4* -- INR -- -- 1.2 -- PTT -- -- 32 -- Recent Labs 06/18/23 0210 06/17/23 0350 06/16/23 1120 NA 138 137 140 K 4.2 3.9 4.2 CL 106 103 103 CO2 22 21* 22 BUN 14 15 14 CREATININE 1.12 1.21 1.20 GLUCOSE 123 104 105 CALCIUM 8.9 9.0 9.6 MAGNESIUM 0.91 0.88 -- PHOS 2.2* 2.6 -- No results for input(s): PROT, ALBUMIN, BILITOT, BILIDIR, ALKPHOS, AST, ALT in the last 72 hours. No results for input(s): LACTATEVEN in the last 72 hours. No results for input(s): PHART, WKR0JTN, PO2ART, WFK2KYX in the last 72 hours. Studies: CT AP w IV contrast 06/16/23: IMPRESSION 1. Interval revision of the shunt [...] area suspicious for abscess with surrounding cellulitis. Impression and Recommendations: Chapin Costa is a 52 y.o. 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 Now admitted due to CSF leak from abdominal incision with slightly elevated WBC from his usual chronic leukocytosis and CT findings concerning for x2 fluid collections which could represent abscess vs sterile CSF. S/p externalization of theshunt with CSF cultures in process. IR has since aspirated the superficial fluid collection. General surgery was consulted for management of the intra-abdominal fluid collection. Given the size of the fluid collection, typically these abscesses would resolve with IV antibioticsalone. However with the presence of the remnant POINT OF CARE 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 catheter, there is risk of biofilm production and persistent infection without foreign body removal. The patient would need an internalized shunt in order to be able to leave the hospital. From my discussions with neurosurgery, it seems the best option at this time is creating a new POINT OF CARE 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 on the left side. However, ongoing intra-abdominal infection would be a contraindication for creating a new POINT OF CARE 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. There is no urgency to addressing the fluid collections at this time. We will follow the culture results including that from the IR aspiration of the abdominal wall collection. Recommendations: -No acute indication for surgical intervention -Will follow-up culture results -All other care per primary Above recommendations discussed with primary team. All plans formulated in discussion with and directed by attending surgeon Dr. Pack. Thank you for this consult. If you have any questions, please page [phone]. Consult service will continue to follow along Vivian Lawson MD 06/18/2023 Acute Care Surgery Service [phone] Associated attestation - Ovidio Pack MD - 06/19/2023 2:49 PM EDT This patient was personally seen and examined on team rounds. I agree with the assessment and plan as discussed. Diagnoses and therapy were explained and all questions were answered. CT images reviewed Discussed with his mother at bedside Will plan for operative removal of the abdominal wall and peritoneal portions of POINT OF CARE 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 to removethe foreign body in attempt to hasten and improve the chances of resolution of the fluid collection/possible abscess. This is quite small and would be difficult to find from a laparoscopic standpoint. Given this small size, it would be expected to resolve without drainage if the foreign body is removed. Thank you for allowing us to participate in the care of your patient. Please feel free to call withany questions or concerns. Ovidio Pack MD 06/19/2023 2:46 PM [id number] * Initial Assessments - Vishal Padron RN - 06/18/2023 10:33 AM EDT Office of Care Management Initial Assessment Medical record reviewed. Plan of care and patient status discussed with direct care Registered Nurse and/or Care Team in multidisciplinary rounds. Reason for Hospitalization: Per H&P: 52 y.o. 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 Presents to the ED with 2 days of abdominal drainage, subjective fevers, and one day of ALICEA. Is alsoendorsing belly pain and there is notable erythematous tissue near the previous abdominal incision. Denies N/V, weakness, paresthesias, vision issues, or bowel/bladder symptoms. HCT shows stable ventricular caliber and XRSS shows displacement of distal catheter at previous attachment point. Last COVID test: Present on Admission: Shunt malfunction Daily Update: 06/17: SD: IR for EVD internalization - fevers; concern for infection; ID: Vanc/Cef. Needs both abd collections tapped; plan tap today. GS consulted for deeper collections. Hospitalizations Within the Past 30 Days: previous discharge plan unsuccessful, other (see comments) (Readmit: 06/07 - 06/10/2023 Shunt malfunction; no home care needs) Patient receiving hospital care under Inpatient status. Admission order reviewed. Health/Prescription Coverage: Primary Insurance: MEDICARE Payor: MEDICARE / Plan: MEDICARE PART A & B / Product Type: *No Product type* / Secondary Insurance: MEDICAID [place] ONLY if patient has Medicare A&B - Does this patient have secondary insurance?: Yes ; Prescription Coverage: Yes [facility] [address] [address] Advance Care Planning: Attempt Cardiopulmonary Resuscitation - Inpatient <no information> -Advanced Directive: Other (Tracy Fregoso Relationship: Guardianship [phone] ) Current Functional Ability: Assistive Person Functional Status Prior to Admission: Independent Home Environment: Others in the home: parent(s). Current Living Arrangements: home/apartment/condo. Accessibility Concerns:Lives in a 3rd floor apartment with an elevator, Patient can also navigate stairs, he wears a CPAP at home, He lives with his mother... Current DME: respiratory supplies (CPAP at night) [address] [facility] [address] Social & Family Supports: All names listed below confirmed with patient as current and correct Extended Emergency Contact Information Primary Emergency Contact: Tracy Fregoso Address: [address] [place] Mobile Relation: Guardianship Secondary Emergency Contact: RICH FREGOSO Address: [address] [place] [id number] [place] [address] [place] Mobile Relation: Step parent Current Care Provided by: parent(s) Transportation: no concerns Transportation Anticipated: family or friend will provide Assessment: Patient with no apparent RNCM/SW needs at this time. No housing, transportation, insurance, resources concerns identified at this time. Supports in place to achieve a safe post-hospital transition. No identified barriers to accessing necessary care and/or follow-up after discharge. Plan: Patient to d/c to home without services via car when medically ready. Registered Nurse Deep Fryer Assembler / Assistant Director Of Security will continue to follow patient???s progress and remain available if situation changes for coordination of care, psychosocial support and/or discharge planning. Office of Care Management Vishal Padron RN RN/CM - Cellphone: [phone] Pager: [phone] Covering Service RN/CM * Plan of Care - Peter Wood RN - 06/18/2023 7:25 AM EDT Safety and comfort maintained. VSS. Afebrile. Pt does not have any pain except for when he tries to lie on his R side. EVD draining well. Replacing phosphorus and no s/s of side effects noted during vancomycin infusionwith benadryl given prior. POC updated. Problem: Fall Injury Risk Goal: Absence of Fall and Fall-Related Injury Outcome: Ongoing (Interventions Implemented as Appropriate) Problem: Infection Goal: Absence of Infection Signs and Symptoms Outcome: Ongoing (Interventions Implemented as Appropriate) Problem: Adult Inpatient Plan of Care Goal: [...] of Care - Deng Fuentes RN - 06/17/2023 6:26 PM EDTSummary: Shift Change OUTCOME EVALUATION NOTE: OUTCOME SUMMARY: Pt AOx4. No pain, VSS stable. Provider changed abx, d/c meropenem, start ceftriaxone. Vancomycin rate changed, pretreat with benadryl prior to starting vanc. Q2hr EVD drain, fluid continuous and clear. IR ordered but no call to schedule. PLAN MOVING FORWARD: q2hr drain Complete IR INDIVIDUALIZED FALL PREVENTION INTERVENTIONS: Patient-specific fall risk factors per assessment: [current deficits]: Lines, drains, tubes Assistance [level of assistance required for transfers and ambulation]: 1 Assist, see EVD order Supervision [direct monitoring required during toileting and ADLs]: Stand-by CPG GOAL OUTCOME EVALUATION: Problem: Fall Injury Risk Goal: Absence of Fall and Fall-Related Injury Outcome: Ongoing (Interventions Implemented as Appropriate) Problem: Infection Goal: Absence of Infection Signs and Symptoms Outcome: Ongoing (Interventions Implemented as Appropriate) Problem: Adult Inpatient Plan of Care Goal: [...] Implemented as Appropriate) * Consult Note - Ar Tompkins MD - 06/17/2023 12:29 PM EDT Images from the original note were not included. DEPARTMENT OF INFECTIOUS DISEASE & INTERNATIONAL [facility] INFECTIOUS DISEASE CONSULT NOTE Reason for ID Consult: POINT OF CARE 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 w/abdominal fluid collection History of Present Illness: 52 y.o. male hx of seizures, migraines, HLD, congenital hydrocephalus 2/2 aqueductal stenosis who recently underwent a distal shunt revision 06/07, who presented to [facility] ED on 06/15 with 2 days historyof abdominal pain, subjective fevers, and one day of headache. Associated with abdomen pain and there is notable erythematous tissue near the previous abdominal incision. On admission patient was hemodynamically stable, afebrile adequate oxygen saturation on room air.Labs remarkable for leukocytosis 17.8, polycythemia 17.9, normal platelet count, elevated ESR 47 CRP 107. LP with CSF analysis colorless 0 nucleated cells 2 RBCs glucose 76, protein 7, nonsuggestive of acute inflammatory/infectious process. CT head without contrast showed no acute abnormalities, CT abdomen and pelvis with contrast revealed shunt catheter with the tip in the left mid abdomen retracted slightly from prior position, also a new 2.7 cm intraperitoneal fluid collection adjacent to the catheter tip. Moderate inflamma tion in the right upper quadrant surrounding a 13 mm segment of discontinue the of the catheter tubing just above a metallic connector and at 3.3 cm fluid collection in the area suspicious for an abscess with surrounding cellulitis. In the ED blood and shunt cultures were obtained. Patient was started empirically on clindamycin, meropenem and vancomycin. Shunt was externalized Infectious diseasesconsulted now for further recommendations and guidance of antibiotic therapy. Infectious diseases focused assessment: Antimicrobial assessment YES NO Prior ABX use in the past 3 months [] [x] Prior hospital admission in the past 3 months [] [x] ABX allergies [x] penicillin anaphylaxis [] Review of Systems: All negative except for what is stated above Antimicrobials: Active Vancomycin Clindamycin Meropenem Discontinued Prophylaxis Vitals: Last value Range last 24 hrs Temperature Temp: 36.8 ??C (98.2 ??F) Temp: [36.5 ??C (97.7 ??F)-36.8 ??C (98.3 ??F)] Heart Rate Heart Rate: 73 Heart Rate: [73-84] Blood Pressure BP: 134/82 BP: (116-134)/(71-93) Respiratory Rate Resp: 17 Resp: [17-28] SpO2 SpO2: 93 % SpO2: [90 %-94 %] Examination: GENERAL APPEARANCE: In no acute distress. VITAL SIGNS: Reviewed HEENT: No conjunctival injection. Oropharynx is clear. Mouth no lesions. NECK: No lymphadenopathy or tenderness. LUNGS: Breath sounds are equal and clear bilaterally. No wheezes, rhonchi, or rales. HEART: Regular rate and rhythm with normal S1 and S2. No murmurs, gallops, or rubs. ABDOMEN: Soft. No mass, tenderness, guarding, or rebound. No organomegaly Bowel sounds are present. EXTREMITIES: No cyanosis, clubbing, or edema. NEUROLOGIC: No focal sensory or motor deficits are noted. SKIN: No lesions, nodules or rashes are noted Laboratory: CBC: Recent Labs 06/17/23 0350 06/16/23 1120 06/10/23 0610 WBC 12.3* 17.8* 17.0* HGB 16.6* 17.9* 17.3* PLATELET 209 236 272 Chemistry: Recent Labs 06/17/23 0350 06/16/23 1120 06/10/23 0610 NA 137 140 135 K 3.9 4.2 4.3 CL 103 103 102 CO2 21* 22 21* BUN 15 14 17 CREATININE 1.21 1.20 1.22 GLUCOSE 104 105 130 Recent Labs 06/17/23 0350 06/16/23 1120 06/10/23 0610 06/08/23 1835 CALCIUM 9.0 9.6 9.7 9.8 MAGNESIUM 0.88 -- -- 0.91 PHOS 2.6 -- -- 3.4 LFT's: Recent Labs 06/08/23 1835 BILITOT 0.7 ALBUMIN 4.6 ALKPHOS 109 ALT 19 AST 14 Latest Reference Range & Units 06/16/23 13:49 06/16/23 14:00 06/16/23 17:36 06/16/23 17:40 Tube Num CSF #1 1 1 Color CSF #1 Colorless Colorless Colorless Appear CSF #1 Clear Clear Clear Tot Vol CSF #1 mL 2.0 1.0 Tube # Ct CSF [address] 0 - 5 /mcl [address] /mcl 0 2 Glucose, CSF mg/dL 79 76 T Protein, CSF 15 - 45 mg/dL 7 (L) 7 (L) Xanthochromia Neg Neg (L): Data is abnormally low Microbiology 06/08/2023 blood culture NGTD 06/16/2023 blood culture NGTD 06/16/2023 shunt culture NGTD Imaging Studies: Reviewed by me CT Abdomen & Pelvis w Contrast IMPRESSION 1. Interval revision of the shunt [...] area suspicious for abscess with surrounding cellulitis. XR Shunt Series IMPRESSION Right frontal approach POINT OF CARE 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 catheter with focal discontinuity at the segment where it enters the abdomen with 2.3 cm gap. Aside from this, the remaining catheter are intact CT Head wo Contrast IMPRESSION Stable examination with no hydrocephalus or other acute abnormality. Diagnosis: Concerns for Intraabdominal infection in the setting of recent POINT OF CARE 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 revision Summary 52 y.o. male hx of seizures, migraines, HLD, congenital hydrocephalus 2/2 aqueductal stenosis who recently underwent a distal shunt revision 06/07, who presented to [facility] ED on 06/15 with 2 days historyof abdominal pain, subjective fevers, and one day of headache. Found to have leukocytosis elevated acute phase reactants. CSF analysis nonsuggestive of acute inflammatory/infectious process. CT abdomen and pelvis revealed shunt catheter with the tip in the left mid abdomen retracted with a new intraperitoneal fluid collection adjacent to the catheter tip. Moderate inflammation in the right upper quadrant and at 3.3 cm fluid collection in the area suspicious for an abscess with surrounding cellul itis. In the ED blood and shunt cultures were obtained. Patient was started empirically on clindamycin, meropenem and vancomycin and shunt was externalized As of now, based on clinical presentation CSF results and culture data, there is no compelling evidence of shunt infection, however, it is concerning the two intraabdominal collection that most likely represent abscesses in the setting of recent POINT OF CARE 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 revision. At this time will recommend narrowing therapy to vancomycin and ceftriaxone alone (patient has tolerated cephalosporins in the past) assuming that pathogens involved are skin mae. Will also recommend sampling/drainage of this collections by IR or Gen surgery for further guidance of therapy. In regards of timing for reinternalizingVP shunt, will entirely depend of resolution of intraabdominal collections. Final duration of therapy will be decided based on clinical course and culture data Recommendations: -Please discontinue meropenem -Continue IV vancomycin per pharmacy protocol (w/ trough goal = 15-20 AUC 400-600) -Please begin ceftriaxone 2 g IV daily -Baseline LFTs -Source control of intra-abdominal collections by IR or general surgery (place sent sample for aerobic aerobic, and fungal culture) -Daily monitoring of CBC and temperature curve -Repeat blood cultures if temperature greater than 100.4 -Rest of management per primary team Thank you for allowing us to participate in the care of this patient. Recommendation were discussed with primary team Infectious diseases team will: Continue to follow [x] Sign off from this case. Please call us back for any further question [] Ar Yuan MD Infectious Disease Fellow Pager [phone] 06/17/[address] Kelsey (attending addendum to follow) Associated attestation - lC Kelsey MD - 06/17/2023 7:02 PM EDT I have seen and examined the patient and discussed the assessment and plan with the fellow. I reviewed the fellow's note and I agree with the documented findings and recommendations. Fortunately, it seems that the infection is limited to the abdomen and does not involve the CREAM RIPENER based on CSF fluid analysis. We recommend draining the abdominal fluid collection for diagnostic (please send for culture) and therapeutic purposes (drainage will likely expedite cure, which will allow for internalizatoin of the POINT OF CARE 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). In the meantime, we recommend narrowing to vancomycin and ceftriaxone. Cl Kelsey MD ID Staff Physician * Plan of Care - Peter Wood RN - 06/17/2023 6:46 AM EDT OUTCOME EVALUATION NOTE: OUTCOME SUMMARY: Patient is alert and oriented x 4. Intermittently confused about the year, but oriented since AM time. See flowsheet. IV Benadryl given prior to admin of Vancomycin with frequent checking on patient for any reaction. None noted on chest/face/back. Pt report no itching and no redness Patient's headache got better. 0/10 this morning. Still has abdominal pain as when he first got to ER. Q2 Neuro Q2 VS. Remains afebrile. PLAN MOVING FORWARD: Continue EVD connector draining as per orders. See output for details. Continue bedrest until further order. Drainage at site marked with green marker without worsening drainage noted during neuro checks and Q2 drains. Slept between care. INDIVIDUALIZED FALL PREVENTION INTERVENTIONS: Patient-specific fall risk factors per assessment: [current deficits]: EVD connector and monitoringtubings along with IV tubings. Assistance [level of assistance required for transfers and ambulation]: BEDREST Supervision [direct monitoring required during toileting and ADLs]: BEDREST Surveillance [continuous indirect monitoring]: vancomycin level Patient-specific fall prevention interventions for sensory deficits provided, if applicable: X CPG GOAL OUTCOME EVALUATION: Problem: Fall Injury Risk Goal: Absence of Fall and Fall-Related Injury Outcome: Ongoing (Interventions Implemented as Appropriate) Problem: Infection Goal: Absence of Infection Signs and Symptoms Outcome: Ongoing (Interventions Implemented as Appropriate) Problem: Adult Inpatient Plan of Care Goal: [...] Ability Outcome: Ongoing (Interventions Implemented as Appropriate) documented in this encounter Plan of Treatment Scheduled Referrals Name Type Priority Associated Diagnoses Orde r Schedule Referral to Home Health Outpatient Referral Routine 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 Ordered: 06/30/2023 documented as of this encounter Procedures Procedure Name Priority Date/Time Associated Diagnosis Comments HEMOGRAM Routine 06/30/2023 6:02 AM EDT DIFFERENTIAL, AUTOMATED Routine 06/30/19 6:02 AM EDT CBC (WITH DIFF) Routine 06/30/2023 6:02 AM EDT BASIC METABOLIC PANEL Routine 06/30/2023 6:02 AM EDT XR SHUNT SERIES Routine 06/29/2023 6:21 PM EDT XR CHEST ONE VIEW Routine 06/29/2023 5:1 8 PM EDT Replacement/Revision, Csf Shunt ([id number]) 06/29/2023 1:56 PM EDT hydrocephalus REVISION OR REPLACEMENT CSF SHUNT Routine 06/29/2023 1:21 PM EDT HEMOGRAM Routine 06/29/2023 3:26 AM EDT DIFFERENTIAL, AUTOMATED Routine 06/29/19 3:26 AM EDT CBC (WITH DIFF) Routine 06/29/2023 3:26 AM EDT BASIC METABOLIC PANEL Routine 06/29/2023 3:26 AM EDT IMPLANTABLE DEVICES SCAN 06/29/2023 12:[address] ABDOMEN AND PELVIS W CONTRAST STAT 06/28/2023 9:54 AM EDT HEMOGRAM Routine 06/28/2023 5:58 AM EDT DIFFERENTIAL, AUTOMATED Routine 06/28/19 24 5:58 AM EDT CBC (WITH DIFF) Routine 06/28/2023 5:58 AM EDT BASIC METABOLIC PANEL Routine 06/28/2023 5:58 AM EDT PHOSPHORUS Routine 06/27/2023 9:59 PM EDT MAGNESIUM Routine 06/27/2023 9:59 PM EDT BASIC METABOLIC PANEL Routine 06/27/2023 9:59 PM EDT XR ABDOMEN FLAT AND UPRIGHT STAT 06/27/2023 8:13 PM EDT XR ABDOMEN 1 VIEW STAT 06/27/2023 7:1 6 PM EDT HEMOGRAM Routine 06/26/2023 4:15 AM EDT DIFFERENTIAL, AUTOMATED Routine 06/26/19 4:15 AM EDT CBC (WITH DIFF) Routine 06/26/2023 4:15 AM EDT BASIC METABOLIC PANEL Routine 06/26/2023 4:15 AM EDT HEMOGRAM Routine 06/23/2023 5:30 AM EDT DIFFERENTIAL, AUTOMATED Routine 06/23/19 5:30 AM EDT CBC (WITH DIFF) Routine 06/23/2023 5:28 AM EDT PHOSPHORUS Routine 06/23/2023 5:28 AM EDT MAGNESIUM Routine 06/23/2023 5:28 AM EDT BASIC METABOLIC PANEL Routine 06/23/2023 5:28 AM EDT HEMOGRAM Routine 06/22/2023 4:20 AM EDT DIFFERENTIAL, AUTOMATED Routine 06/22/19 4:20 AM EDT CBC (WITH DIFF) Routine 06/22/2023 4:10 AM EDT BASIC METABOLIC PANEL Routine 06/22/2023 4:10 AM EDT PHOSPHORUS Routine 06/22/2023 3:10 AM EDT MAGNESIUM Routine 06/22/2023 3:10 AM EDT BASIC METABOLIC PANEL Routine 06/22/2023 3:10 AM EDT HEMOGRAM Routine 06/21/2023 2:22 AM EDT DIFFERENTIAL, AUTOMATED Routine 06/21/19 24 2:22 AM EDT CBC (WITH DIFF) Routine 06/21/2023 2:22 AM EDT PHOSPHORUS Routine 06/21/2023 2:22 AM EDT MAGNESIUM Routine 06/21/2023 2:22 AM EDT BASIC METABOLIC PANEL Routine 06/21/2023 2:22 AM EDT REMOVAL OF COMPLETE CSF SHUNT, W/O REPLACEMENT Routine 06/20/2023 2:34 PM EDT SURGICAL PATHOLOGY REPORT Routine 06/20/2023 2:24 PM EDT SPECIMEN TO PATHOLOGY Routine 06/20/2023 2:24 PM EDT Removal, Complete Csf Shunt, W/O Replace ([id number]) 06/20/2023 1:51 PM EDT POINT OF CARE 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 revision HEMOGRAM Routine 06/20/2023 5:16 AM EDT DIFFERENTIAL, AUTOMATED Routine 06/20/19 5:16 AM EDT VANCOMYCIN LEVEL, RANDOM Timed 06/20/2023 5:15 AM EDT CBC (WITH DIFF) Routine 06/20/2023 5:15 AM EDT PHOSPHORUS Routine 06/20/2023 5:15 AM EDT MAGNESIUM Routine 06/20/2023 5:15 AM EDT BASIC METABOLIC PANEL Routine 06/20/2023 5:15 AM EDT EKG 12-LEAD Routine 06/19/2023 2:[address] segment depression HEMOGRAM Routine 06/19/2023 3:30 AM EDT DIFFERENTIAL, AUTOMATED Routine 06/19/19 3:30 AM EDT CBC (WITH DIFF) Routine 06/19/2023 3:20 AM EDT PHOSPHORUS Routine 06/19/2023 3:20 AM EDT MAGNESIUM Routine 06/19/2023 3:20 AM EDT BASIC METABOLIC PANEL Routine 06/19/2023 3:20 AM EDT IR ALL DRAINAGE PROCEDURES Routine 06/18/2023 3:44 PM EDT HC FUNGUS CULTURE, MISC SOURCE Routine 06/18/2023 2:54 PM EDT ANAEROBIC CULTURE Routine 06/18/2023 2:5 4 PM EDT HC GRAM STAIN FOR BACTERIA Routine 06/18/2023 2:54 PM EDT FUNGAL STAIN Routine 06/18/2023 2:54 PM EDT BODY FLUID CULTURE, AEROBIC Routine 06/18/2023 2:54 PM EDT FUNGUS CULTURE Routine 06/18/2023 2:54 PM EDT HEMOGRAM Routine 06/18/2023 2:10 AM EDT DIFFERENTIAL, AUTOMATED Routine 06/18/19 2:10 AM EDT CBC (WITH DIFF) Routine 06/18/2023 2:10 AM EDT PHOSPHORUS Routine 06/18/2023 2:10 AM EDT MAGNESIUM Routine 06/18/2023 2:10 AM EDT VANCOMYCIN, TROUGH Timed 06/18/2023 2: 10 AM EDT BASIC METABOLIC PANEL Routine 06/18/2023 2:10 AM EDT HEMOGRAM Routine 06/17/2023 3:50 AM EDT DIFFERENTIAL, AUTOMATED Routine 06/17/19 3:50 AM EDT CBC (WITH DIFF) Routine 06/17/2023 3:50 AM EDT PHOSPHORUS Routine 06/17/2023 3:50 AM EDT MAGNESIUM Routine 06/17/2023 3:50 AM EDT BASIC METABOLIC PANEL Routine 06/17/2023 3:50 AM EDT CSF CELL COUNT STAT 06/16/2023 5:40 PM EDT CSF DESC 1 STAT 06/16/2023 5:40 PM EDT CREAM RIPENER SHUNT CULTURE Routine 06/16/2023 5:4 0 PM EDT HC CSF CELL COUNT STAT 06/16/2023 5:3 6 PM EDT PROTEIN LEVEL CSF STAT 06/16/2023 5:3 6 PM EDT GLUCOSE LEVEL CSF STAT 06/16/2023 5:[address] ABDOMEN AND PELVIS W CONTRAST STAT 06/16/2023 2:04 PM EDT CSF CELL COUNT STAT 06/16/2023 2:00 PM EDT CSF DESC 1 STAT 06/16/2023 2:00 PM EDT HC CSF CELL COUNT STAT 06/16/2023 1:4 9 PM EDT CREAM RIPENER SHUNT CULTURE Routine 06/16/2023 1:4 9 PM EDT PROTEIN LEVEL CSF STAT 06/16/2023 1:4 9 PM EDT GLUCOSE LEVEL CSF STAT 06/16/2023 1:4 9 PM EDT ABORH RECHECK STATUS Routine 06/16/2023 1:15 PM EDT BLOOD CULTURE STAT 06/16/2023 1:15 PM EDT HC PARTIAL THROMBOPLASTIN TIME STAT 06/16/2023 1:15 PM EDT PROTHROMBIN TIME STAT 06/16/2023 1:15 PM EDT TYPE AND SCREEN ([facility]/DULCE MARIA) STAT 06/16/2023 1:15 PM EDT BLOOD CULTURE STAT 06/16/2023 12:45 PM EDT CRP, ACUTE INFLAMMATION STAT 06/16/19 11:20 AM EDT HEMOGRAM STAT 06/16/2023 11:20 AM EDT DIFFERENTIAL, AUTOMATED STAT 06/16/19 11:20 AM EDT SEDIMENTATION RATE STAT 06/16/2023 11 :20 AM EDT CBC (WITH DIFF) STAT 06/16/2023 11:20 AM EDT BASIC METABOLIC PANEL STAT 06/16/2023 11:20 AM EDT XR SHUNT SERIES STAT 06/16/2023 11:[address] HEAD WO CONTRAST (GENERIC) STAT 06/16/2023 10:58 AM EDT documented in this encounter Results * (ABNORMAL) Differential, Automated (06/30/2023 6:02 AM EDT) Neutrophil % 74.9 % [facility] Neutrophil Absolute 12.03(H) 1.70 - 6.10 x10(3)/mc L [facility] Lymph % 17.2 % [facility] Lymphocytes Abs 2.8 0.9 - 3.2 x10(3)/mc L [facility] Monocyte % 5.7 % [facility] Monocyte Abs 0.9 0.3 - 0.9 x10(3)/mc L [facility] Eos % 1.4 % [facility] Eosinophils Abs 0.2 0.0 - 0.4 x10(3)/mc L [facility] Basophil % 0.4 % [facility] Baso Absolute 0.1 0.0 - 0.1 x10(3)/[facility] Immature Gran % 0.40 % [facility] Comment: Immature granulocytes(IG's)percentage and absolute count will include metamyelocytes, myelocytes, and promyelocytes. Blood smears from CBCs yielding IG's will be scanned manually for concordance. If this scan disagrees with the automated IG or if promyelocytes are noted, a manual differential will be performed. Immature Gran Absolute 0.06(H) 0.00 - 0.04 x10(3)/[facility] Blood 06/30/2023 6:02 AM EDT 06/30/2023 6:18 AM EDT Narrative Resulting Agency Comment Spec In Lab Laila Ricci MD HEMATOLOGY ORDERABLE S Performing Organization Address City/State/[facility] Co de Phone Number [facility] [place] [address] * (ABNORMAL) Hemogram (06/30/2023 6:02 AM EDT) White Blood Cell 16.0(H) 4.0 - 9.5 x10(3)/[facility] Red Blood Cell 5.79(H) 4.58 - 5.54 x10(6)/ L [facility] Hemoglobin 17.1(H) 13.7 - 16.5 g/dL [facility] Hematocrit 49.7(H) 40.5 - 48.5 % [facility] Mean Cell Volume 85.8 82.9 - 93.1 fL [facility] Mean Cell Hemoglobin 29.5 27.5 - 32.1 pg [facility] Mean Cell Hemoglobin Concentration 34.4 32.0 - 35.7 g/dL [facility] Platelet 257 145 - 357 x10(3)/ L [facility] RDW Standard Deviation 41.3 36.0 - 45.0 fL [facility] RDW coefficient of variation 13.3 11.4 - 13.8 % [facility] Mean Platelet Volume 9.1 7.6 - 12.9 fL [facility] NRBC% auto 0.0 % [facility] NRBC Absolute 0.000 0.000 - 0.000 x10(3)/mc L [facility] Blood 06/30/2023 6:02 AM EDT 06/30/2023 6:18 AM EDT Narrative Resulting Agency Comment Spec In Lab Laila Ricci MD HEMATOLOGY ORDERABLE S [facility] [place] [address] * (ABNORMAL) Basic Metabolic Panel (non-fasting) (06/30/2023 6:02 AM EDT) Glucose 116 65 - 199 mg/dL [facility] Comment:Diabetes: >=200 mg/d L plus symptoms Blood Urea Nitrogen 15 10 - 20 mg/dL [facility] Creatinine 1.36 0.80 - 1.50 mg/dL [facility] Sodium 138 135 - 145 mmol/L [facility] Potassium 4.1 3.5 - 5.0 mmol/L [facility] Comment: Please note: ??Patients with WBC >100,000 may have falsely elevated Potassium levels. ??For accurate Potassium quantification in these patients send serum separator tube (gold top) for subsequent determinations. ??Contact the Clinical Chemistry Laboratory if there are any questions. Chloride 107 98 - 107 mmol/L [facility] Carbon Dioxide 21(L) 22 - 31 mmol/L [facility] Anion Gap 10 5 - 15 mmol/L [facility] Calcium 9.4 8.5 - 10.5 mg/dL [facility] Est Glomerular Filtration Rate 63 >=60 mL/min/1. 73 m?? [facility] Comment: This patient's estimated GFR [...] and symptoms in addition to eGFR. Blood 06/30/2023 6:02 AM EDT 06/30/2023 6:18 AM EDT Narrative Resulting Agency Comment Spec In Lab Rhoda Jimenez MD CHEMISTRY ORDERABLES [facility] [place] [address] * XR Shunt Series (06/29/2023 6:21 PM EDT) WORKSTATION ID [id number] RAD Anatomical Region Laterality Modality N/A Digital Radiogra phy Impressions 06/30/2023 9:07 AM EDT Replaced, intact right ventriculopleural drain catheter. Thank you for letting us participate in the care of this patient. ??If you are a health care provider and have any questions regarding this report, please contact the number below. ??For patients who have questions please contact the health home care physical therapist that requested your imaging first. ? Electronically signed by: Emerita Bernstein MD, [facility] ([phone]), at 06/30/2023 9:07 AM Narrative 06/30/2023 9:07 AM EDT EXAMINATION: XR SHUNT SERIES CLINICAL [...] sacroiliac joints. No focal soft tissue abnormality. Procedure Note Emerita Bernstein MD - 06/30/2023 EXAMINATION: XR SHUNT SERIES CLINICAL HISTORY: postop distal catheter replacement to pleural space TECHNIQUE: AP and lateral head, chest and abdomen radiographs (7 images) COMPARISON: X-ray shunt series June 16, 2023 FINDINGS: Proximal shunt tubing tip is at midline via a high right frontal approach.The programmable valve is not positioned to evaluate setting. Catheter tubingaround the right neck and anterior chest is intact, tip in the pleura,apparently posteriorly. Orphan catheter tubing at the medial right neck and anterior chest cameron unchanged. There are surgical clips in the abdomen without residualtubing. No fracture. Smoothly corticated craniotomies. The patient is edentulous.Joints are aligned at the shoulders, spine and sacroiliac joints. No focal softtissue abnormality. IMPRESSION Replaced, intact right ventriculopleural drain catheter. Thank you for letting us participate in the care of this patient. If youare a health care provider and have any questions regarding this report,please contact the number below. For patients who have questions please contactthe health home care physical therapist that requested your imaging first. Electronically signed by: Emerita Bernstein MD, [facility]([phone]), at 06/30/2023 9:07 AM Rhoda Jimenez MD IMG DX ORDERABLES * XR Chest One View (06/29/2023 5:18 PM EDT) WORKSTATION ID [id number] RAD Anatomical Region Laterality Modality Chest N/A Digital Radiogra phy Impressions 06/30/2023 8:41 AM EDT Ventriculopleural shunt catheter in place. No pneumothorax. Thank you for letting us participate in the care of this patient. ??If you are a health care provider and have any questions regarding this report, please contact the number below. ??For patients who have questions please contact the health home care physical therapist that requested your imaging first. ? Electronically signed by: Chapin Lee MD, [facility] ??([phone]), at 06/30/2023 8:41 AM Narrative 06/30/2023 8:41 AM EDT EXAMINATION: XR CHEST ONE VIEW CLINICAL HISTORY: postop pleural catheter placement, assess for PTX TECHNIQUE: 1 view of the chest COMPARISON: 08/24/2022 FINDINGS: Ventriculopleural shunt catheter in place Decreased lung volumes compared to prior. The cardiac silhouette is stable. No pleural effusion or pneumothorax. Procedure Note Chapin Lee MD - 06/30/2023 EXAMINATION: XR CHEST ONE VIEW CLINICAL HISTORY: postop pleural catheter placement, assess for PTX TECHNIQUE: 1 view of the chest COMPARISON: 08/24/2022 FINDINGS: Ventriculopleural shunt catheter in place Decreased lung volumes compared to prior. The cardiac silhouette isstable. No pleural effusion or pneumothorax. IMPRESSION Ventriculopleural shunt catheter in place. No pneumothorax. Thank you for letting us participate in the care of this patient. If youare a health care provider and have any questions regarding this report,please contact the number below. For patients who have questions please contactthe health home care physical therapist that requested your imaging first. Rhoda Jimenez MD IMG DX ORDERABLES * (ABNORMAL) Differential, Automated (06/29/2023 3:26 AM EDT) Neutrophil % 62.0 % [facility] Neutrophil Absolute 7.70(H) 1.70 - 6.10 x10(3)/[facility] Lymph % 29.5 % [facility] Lymphocytes Abs 3.7(H) 0.9 - 3.2 x10(3)/[facility] Monocyte % 5.6 % [facility] Monocyte Abs 0.7 0.3 - 0.9 x10(3)/[facility] Eos % 1.9 % [facility] Eosinophils Abs 0.2 0.0 - 0.4 x10(3)/[facility] Basophil % 0.7 % [facility] Baso Absolute 0.1 0.0 - 0.1 x10(3)/[facility] Immature Gran % 0.30 % [facility] Comment: Immature granulocytes(IG's)percentage and absolute count will include metamyelocytes, myelocytes, and promyelocytes. Blood smears from CBCs yielding IG's will be scanned manually for concordance. If this scan disagrees with the automated IG or if promyelocytes are noted, a manual differential will be performed. Immature Gran Absolute 0.04 0.00 - 0.04 x10(3)/[facility] Blood 06/29/2023 3:26 AM EDT 06/29/2023 3:34 AM EDT Narrative Resulting Agency Comment Spec In Lab Claire DURHAM HEMATOLOGY ORDERABLE S [facility] [place] [address] * (ABNORMAL) Hemogram (06/29/2023 3:26 AM EDT) [facility] White Blood Cell 12.4(H) 4.0 - 9.5 x10(3)/[facility] Red Blood Cell 5.93(H) 4.58 - 5.54 x10(6)/[facility] Hemoglobin 17.4(H) 13.7 - 16.5 g/dL [facility] Hematocrit 51.4(H) 40.5 - 48.5 % [facility] Mean Cell Volume 86.7 82.9 - 93.1 [facility] Mean Cell Hemoglobin 29.3 27.5 - 32.1 pg [facility] Mean Cell Hemoglobin Concentration 33.9 32.0 - 35.7 g/dL [facility] Platelet 284 145 - 357 x10(3)/[facility] RDW Standard Deviation 42.2 36.0 - 45.0 [facility] RDW coefficient of variation 13.3 11.4 - 13.8 % [facility] Mean Platelet Volume 8.7 7.6 - 12.9 [facility] NRBC% auto 0.0 % [facility] NRBC Absolute 0.000 0.000 - 0.000 x10(3)/[facility] Blood 06/29/2023 3:26 AM EDT 06/29/2023 3:34 AM EDT Narrative Resulting Agency Comment Spec In Lab Claire DURHAM HEMATOLOGY ORDERABLE S [facility] [place] [address] * (ABNORMAL) Basic Metabolic Panel (non-fasting) (06/29/2023 3:26 AM EDT) [facility] Glucose 109 65 - 199 mg/dL [facility] Comment:Diabetes: >=200 mg/d L plus symptoms Blood Urea Nitrogen 19 10 - 20 mg/dL [facility] Creatinine 1.36 0.80 - 1.50 mg/dL [facility] Sodium 140 135 - 145 mmol/L [facility] Potassium 3.9 3.5 - 5.0 mmol/L [facility] Comment: Please note: ??Patients with WBC >100,000 may have falsely elevated Potassium levels. ??For accurate Potassium quantification in these patients send serum separator tube (gold top) for subsequent determinations. ??Contact the Clinical Chemistry Laboratory if there are any questions. Chloride 106 98 - 107 mmol/L [facility] Carbon Dioxide 21(L) 22 - 31 mmol/L [facility] Anion Gap 13 5 - 15 mmol/L [facility] Calcium 9.6 8.5 - 10.5 mg/dL [facility] Est Glomerular Filtration Rate 63 >=60 mL/min/1. 73 m?? [facility] Comment: This patient's estimated GFR [...] and symptoms in addition to eGFR. Blood 06/29/2023 3:26 AM EDT 06/29/2023 3:34 AM EDT Narrative Resulting Agency Comment Spec In Lab Rhoda Jimenez MD CHEMISTRY ORDERABLES [facility] [place] [address] * Scan Doc: Implantable Devices (06/29/2023 12:00 AM EDT) Narrative 06/29/2023 12:00 AM EDT Ordered by an unspecified provider. Scanning Provider MEDIA MGR SCAN EXT O RDR/RSLT * CT Abdomen & Pelvis w Contrast (06/28/2023 9:54 AM EDT) [employer] WORKSTATION ID [id number] RAD Anatomical Region Laterality Modality Abdomen, Pelvis Computed Tomogra phy Impressions 06/28/2023 10:35 AM EDT 1. ??No new intra-abdominal or pelvic abscess. 2. ??Small residual soft tissue enhancement at the site of the previously described intra-abdominal abscess. 3. ??Decreased size of abdominal wall soft tissue abscesses. 4. ??Obstructing mid small bowel fecalized material. 5. ??Stable pulmonary nodules. Unlikely to be clinically significant in the absence of known metastatic disease. I have personally reviewed the image(s) and the resident's interpretation and agree with the findings, Kandi Duarte MD at 06/28/2023 10:35 AM Thank you for letting us participate in the care of this patient. ??If you are a health care provider and have any questions regarding this report, please contact the number below. ??For patients who have questions please contact the health home care physical therapist that requested your imaging first. ? Electronically signed by: Kandi Duarte MD, [facility] ([phone]), at 06/28/2023 10:35 AM Narrative 06/28/2023 10:35 AM EDT EXAMINATION: CT ABDOMEN AND PELVIS W CONTRAST CLINICAL HISTORY: looking for intra-abdominal abscess in setting of ileus, vomiting, increasing WBC TECHNIQUE: [...] 33 and 100). There is an additional pleural-based sub-6 mm nodule in the left anteromedial lower lobe (series 8, image 25). Bibasilar atelectasis. The heart is normal in size. No pericardial effusion. Liver: Normal size and attenuation without lesions. [...] image 35). Additional sites of soft tissue gas are seen in the right lower abdomen (series 3, image 117 and 124). Bilateral fat-containing inguinal hernias. Reproductive organs: Normal. Osseous structures: No suspicious lesions. Procedure Note Kandi Duarte MD - 06/28/2023 EXAMINATION: CT ABDOMEN AND PELVIS W CONTRAST CLINICAL HISTORY: looking for intra-abdominal abscess in setting ofileus, vomiting, increasing WBC TECHNIQUE: Helical CT of the abdomen and pelvis following theintravenous administration of contrast. Administered 113.0 ml of OMNIPAQUE 350.00mg/ml. Oral contrast was administered. COMPARISON: CT abdomen pelvis with contrast 06/16/2023 FINDINGS: Lower chest: Stable sub-6 mm right lateral middle lobe and right posteriorlower lobe nodules (series 8, images 24, 33 and 100). There is an additional pleural-based sub-6 mm nodule in the left anteromedial lower lobe (series8, image 25). Bibasilar atelectasis. The heart is normal in size. No pericardialeffusion. Liver: Normal size and attenuation without lesions. Small area ofhypodensity in segment 4A (series 8, image 195) likely represents benign fattyinfiltration. Bile ducts: Nondilated. Gallbladder: Surgically absent. Pancreas: Normal attenuation without ductal dilatation. Spleen: Normal. Adrenals: Normal. Kidneys: Symmetric nephrograms. No suspicious lesions. No calculi orcollecting system dilatation. Urinary Bladder: Normal. Vasculature: No abdominal aortic aneurysm. Lymph Nodes: No enlarged lymph nodes. Bowel: Dilated loops of contrast-filled small bowel in the lefthemiabdomen measuring up to 4.3 cm in diameter to a segment containing inspissatedfecalized material distal to which there is abrupt caliber transition. Air-fluidlevels are seen in these dilated loops of small bowel and in the stomach. Thecolon is decompressed. Peritoneum and retroperitoneum: The intra-abdominal ventriculoperitonealshunt has been externalized. There is a small amount of enhancement at the siteof the previously described triangular-shaped intra-abdominal fluid collection(series 3, image 56). No definitive intra-abdominal abscess is visualized. Abdominal wall: Decreased size of right lower chest wall/upper abdominalwall abscess (series 3, image 35). Additional sites of soft tissue gas are seenin the right lower abdomen (series 3, image 117 and 124). Bilateral fat-containing inguinal hernias. Reproductive organs: Normal. Osseous structures: No suspicious lesions. IMPRESSION 1. No new intra-abdominal or pelvic abscess. 2. Small residual soft tissue enhancement at the site of the previously described intra-abdominal abscess. 3. Decreased size of abdominal wall soft tissue abscesses. 4. Obstructing mid small bowel fecalized material. 5. Stable pulmonary nodules. Unlikely to be clinically significant inthe absence of known metastatic disease. I have personally reviewed the image(s) and the resident's interpretationand agree with the findings, Kandi Duarte MD at 06/28/2023 10:35 AM Thank you for letting us participate in the care of this patient. If youare a health care provider and have any questions regarding this report,please contact the number below. For patients who have questions please contactthe health home care physical therapist that requested your imaging first. Electronically signed by: Kandi Duarte MD, [facility]([phone]), at 06/28/2023 10:35 AM Rhoda Jimenez MD IMG CT ORDERABLES * (ABNORMAL) Differential, Automated (06/28/2023 5:58 AM EDT) Neutrophil % 63.8 % [facility] Neutrophil Absolute 8.71(H) 1.70 - 6.10 x10(3)/mc L [facility] Lymph % 28.0 % [facility] Lymphocytes Abs 3.8(H) 0.9 - 3.2 x10(3)/ L [facility] Monocyte % 5.5 % [facility] Monocyte Abs 0.8 0.3 - 0.9 x10(3)/ L [facility] Eos % 1.5 % [facility] Eosinophils Abs 0.2 0.0 - 0.4 x10(3)/ L [facility] Basophil % 0.9 % [facility] Baso Absolute 0.1 0.0 - 0.1 x10(3)/ L [facility] Immature Gran % 0.30 % [facility] Comment: Immature granulocytes(IG's)percentage and absolute count will include metamyelocytes, myelocytes, and promyelocytes. Blood smears from CBCs yielding IG's will be scanned manually for concordance. If this scan disagrees with the automated IG or if promyelocytes are noted, a manual differential will be performed. Immature Gran Absolute 0.04 0.00 - 0.04 x10(3)/ L [facility] Blood 06/28/2023 5:58 AM EDT 06/28/2023 6:08 AM EDT Narrative Resulting Agency Comment Spec In Lab Claire DURHAM HEMATOLOGY ORDERAB LES [facility] [place] [address] * (ABNORMAL) Hemogram (06/28/2023 5:58 AM EDT) White Blood Cell 13.6(H) 4.0 - 9.5 x10(3)/mc L [facility] Red Blood Cell 5.96(H) 4.58 - 5.54 x10(6)/mc L [facility] Hemoglobin 18.1(H) 13.7 - 16.5 g/dL [facility] Hematocrit 52.0(H) 40.5 - 48.5 % [facility] Mean Cell Volume 87.2 82.9 - 93.1 [facility] Mean Cell Hemoglobin 30.4 27.5 - 32.1 pg [facility] Mean Cell Hemoglobin Concentration 34.8 32.0 - 35.7 g/dL [facility] Platelet 253 145 - 357 x10(3)/mc L [facility] RDW Standard Deviation 41.9 36.0 - 45.0 [facility] RDW coefficient of variation 13.2 11.4 - 13.8 % [facility] Mean Platelet Volume 8.7 7.6 - 12.9 [facility] NRBC% auto 0.0 % [facility] NRBC Absolute 0.000 0.000 - 0.000 x10(3)/ L [facility] Blood 06/28/2023 5:58 AM EDT 06/28/2023 6:08 AM EDT Narrative Resulting Agency Comment Spec In Lab Claire DURHAM HEMATOLOGY ORDERAB LES [facility] [place] [address] * (ABNORMAL) Basic Metabolic Panel (non-fasting) (06/28/2023 5:58 AM EDT) Glucose 103 65 - 199 mg/dL [facility] Comment:Diabetes: >=200 mg/d L plus symptoms Blood Urea Nitrogen 19 10 - 20 mg/dL [facility] Creatinine 1.33 0.80 - 1.50 mg/dL [facility] Sodium 142 135 - 145 mmol/L [facility] Potassium 3.9 3.5 - 5.0 mmol/L [facility] Comment: Please note: ??Patients with WBC >100,000 may have falsely elevated Potassium levels. ??For accurate Potassium quantification in these patients send serum separator tube (gold top) for subsequent determinations. ??Contact the Clinical Chemistry Laboratory if there are any questions. Chloride 104 98 - 107 mmol/L [facility] Carbon Dioxide 22 22 - 31 mmol/L [facility] Anion Gap 16(H) 5 - 15 mmol/L [facility] Calcium 9.8 8.5 - 10.5 mg/dL [facility] Est Glomerular Filtration Rate 65 >=60 mL/min/1. 73 m?? [facility] Comment: This patient's estimated GFR [...] and symptoms in addition to eGFR. Blood 06/28/2023 5:58 AM EDT 06/28/2023 6:08 AM EDT Narrative Resulting Agency Comment Spec In Lab Rhoda Jimenez MD CHEMISTRY ORDERABLES [facility] [place] [address] * Basic Metabolic Panel (non-fasting) (06/27/2023 9:59 PM EDT) Glucose 104 65 - 199 mg/dL [facility] Comment:Diabetes: >=200 mg/d L plus symptoms Blood Urea Nitrogen 17 10 - 20 mg/dL [facility] Creatinine 1.34 0.80 - 1.50 mg/dL [facility] Sodium 140 135 - 145 mmol/L [facility] Potassium 3.9 3.5 - 5.0 mmol/L [facility] Comment: Please note: ??Patients with WBC >100,000 may have falsely elevated Potassium levels. ??For accurate Potassium quantification in these patients send serum separator tube (gold top) for subsequent determinations. ??Contact the Clinical Chemistry Laboratory if there are any questions. Chloride 103 98 - 107 mmol/L [facility] Carbon Dioxide 22 22 - 31 mmol/L [facility] Anion Gap 15 5 - 15 mmol/L [facility] Calcium 9.9 8.5 - 10.5 mg/dL [facility] Est Glomerular Filtration Rate 65 >=60 mL/min/1. 73 m?? [facility] Comment: This patient's estimated GFR [...] and symptoms in addition to eGFR. Blood 06/27/2023 9:59 PM EDT 06/27/2023 10:07 PM EDT Narrative Resulting Agency Comment Spec In Lab Rhoda Jimenez MD CHEMISTRY ORDERABLES Performing Organization Address [facility] Co de Phone Number [facility] [place] [address] * Magnesium (06/27/2023 9:59 PM EDT) Magnesium 0.93 0.69 - 1.07 mmol/L [facility] Blood 06/27/2023 9:59 PM EDT 06/27/2023 10:07 PM EDT Narrative Resulting Agency Comment Spec In Lab Rhoda Jimenez MD CHEMISTRY ORDERABLES Performing Organization Address [facility] Co de Phone Number [facility] [place] [address] * Phosphorus (06/27/2023 9:59 PM EDT) Phosphorus 3.9 2.5 - 4.5 mg/dL [facility] Blood 06/27/2023 9:59 PM EDT 06/27/2023 10:07 PM EDT Narrative Resulting Agency Comment Spec In Lab Rhoda Jmienez MD CHEMISTRY ORDERABLES Performing Organization Address [facility] de Phone Number [facility] [place] [address] * XR Abdomen Flat & Upright (06/27/2023 8:13 PM EDT) WORKSTATION ID [id number] DH RAD Anatomical Region Laterality Modality Abdomen N/A Digital Radiogra phy Impressions 06/27/2023 8:45 PM EDT Ileus. No perforation. No obstruction. I have [...] who have questions please contact the health home care physical therapist that requested your imaging first. ? Electronically signed by: Kandi Duarte MD, [facility] ([phone]), at 06/27/2023 8:45 PM Narrative 06/27/2023 8:45 PM EDT EXAMINATION: XR ABDOMEN FLAT AND UPRIGHT CLINICAL [...] and left lower quadrant. No displaced fractures. Procedure Note Kandi Duarte MD - 06/27/2023 EXAMINATION: XR ABDOMEN FLAT AND UPRIGHT CLINICAL HISTORY: N/V, eval for obstruction vs ileus (prior KUB limited).Please obtain dependent and nondependent views TECHNIQUE: AP supine and upright abdominal radiographs COMPARISON: Abdominal radiographs 06/27/2023 FINDINGS: Partially imaged abandoned catheter fragments overlying bothhemidiaphragms. Imaged bowel loops are nondilated. Scattered air-fluid levels. Nosubphrenic free air on upright radiographs. Surgical clips project over the rightlower quadrant and left lower quadrant. No displaced fractures. IMPRESSION Ileus. No perforation. No obstruction. I have personally reviewed the image(s) and the resident's interpretationand agree with the findings, Kandi Duarte MD at 06/27/2023 8:45 PM Thank you for letting us participate in the care of this patient. If youare a health care provider and have any questions regarding this report,please contact the number below. For patients who have questions please contactthe health home care physical therapist that requested your imaging first. Electronically signed by: Kandi Duarte MD, [facility]([phone]), at 06/27/2023 8:45 PM Rhoda Jimenez MD IMG DX ORDERABLES * XR Abdomen 1 view (Generic) (06/27/2023 7:16 PM EDT) WORKSTATION ID [id number] RAD Anatomical Region Laterality Modality Abdomen N/A Digital Radiogra phy Impressions 06/27/2023 7:36 PM EDT Nonobstructive bowel gas pattern with note of [...] who have questions please contact the health home care physical therapist that requested your imaging first. ? Electronically signed by: Kandi Duarte MD, [facility] ([phone]), at 06/27/2023 7:36 PM Narrative 06/27/2023 7:36 PM EDT EXAMINATION: XR ABDOMEN 1 VIEW (GENERIC) CLINICAL HISTORY: Please obtain upright. Assess for intra-abdominal pathology with recent intra-abdominal infection and new emesis/bloating. TECHNIQUE: AP abdominal radiograph (2 images) COMPARISON: CT abdomen pelvis 06/16/2023 FINDINGS: The lower abdomen and pelvis are excluded from the [id number]. Imaged bowel loops are nondilated. No free air. Surgical clips project over the right upper quadrant and left hemiabdomen. No displaced fractures. Procedure Note Kandi Duarte MD - 06/27/2023 EXAMINATION: XR ABDOMEN 1 VIEW (GENERIC) CLINICAL HISTORY: Please obtain upright. Assess for intra-abdominalpathology with recent intra-abdominal infection and new emesis/bloating. TECHNIQUE: AP abdominal radiograph (2 images) COMPARISON: CT abdomen pelvis 06/16/2023 FINDINGS: The lower abdomen and pelvis are excluded from the [id number]. Imagedbowel loops are nondilated. No free air. Surgical clips project over the rightupper quadrant and left hemiabdomen. No displaced fractures. IMPRESSION Nonobstructive bowel gas pattern with note of incomplete visualization ofthe lower abdomen and pelvis. No subphrenic free air. I have personally reviewed the image(s) and the resident's interpretationand agree with the findings, Kandi Duarte MD at 06/27/2023 7:36 PM Thank you for letting us participate in the care of this patient. If youare a health care provider and have any questions regarding this report,please contact the number below. For patients who have questions please contactthe health home care physical therapist that requested your imaging first. Electronically signed by: Kandi Duarte MD, [facility]([phone]), at 06/27/2023 7:36 PM Rhoda Jimenez MD IMG DX ORDERABLES * (ABNORMAL) Differential, Automated (06/26/2023 4:15 AM EDT) Neutrophil % 70.8 % [facility] Neutrophil Absolute 7.88(H) 1.70 - 6.10 x10(3)/mc L [facility] Lymph % 21.7 % [facility] Lymphocytes Abs 2.4 0.9 - 3.2 x10(3)/mc L [facility] Monocyte % 4.9 % [facility] Monocyte Abs 0.5 0.3 - 0.9 x10(3)/mc L [facility] Eos % 1.5 % [facility] Eosinophils Abs 0.2 0.0 - 0.4 x10(3)/[facility] Basophil % 0.8 % [facility] Baso Absolute 0.1 0.0 - 0.1 x10(3)/[facility] Immature Gran % 0.30 % [facility] Comment: Immature granulocytes(IG's)percentage and absolute count will include metamyelocytes, myelocytes, and promyelocytes. Blood smears from CBCs yielding IG's will be scanned manually for concordance. If this scan disagrees with the automated IG or if promyelocytes are noted, a manual differential will be performed. Immature Gran Absolute 0.03 0.00 - 0.04 x10(3)/[facility] Blood 06/26/2023 4:15 AM EDT 06/26/2023 4:24 AM EDT Narrative Resulting Agency Comment Spec In Lab Claire DURHAM HEMATOLOGY ORDERAB LES [facility] [place] [address] * (ABNORMAL) Hemogram (06/26/2023 4:15 AM EDT) White Blood Cell 11.1(H) 4.0 - 9.5 x10(3)/[facility] Red Blood Cell 5.97(H) 4.58 - 5.54 x10(6)/[facility] Hemoglobin 17.8(H) 13.7 - 16.5 g/dL [facility] Hematocrit 51.4(H) 40.5 - 48.5 % [facility] Mean Cell Volume 86.1 82.9 - 93.1 fL [facility] Mean Cell Hemoglobin 29.8 27.5 - 32.1 pg [facility] Mean Cell Hemoglobin Concentration 34.6 32.0 - 35.7 g/dL [facility] Platelet 269 145 - 357 x10(3)/mc L [facility] RDW Standard Deviation 41.4 36.0 - 45.0 fL [facility] RDW coefficient of variation 13.3 11.4 - 13.8 % [facility] Mean Platelet Volume 8.6 7.6 - 12.9 fL [facility] NRBC% auto 0.0 % [facility] NRBC Absolute 0.000 0.000 - 0.000 x10(3)/mc L [facility] Blood 06/26/2023 4:15 AM EDT 06/26/2023 4:24 AM EDT Narrative Resulting Agency Comment Spec In Lab Claire DURHAM HEMATOLOGY ORDERAB LES [facility] [place] [address] * (ABNORMAL) Basic Metabolic Panel (non-fasting) (06/26/2023 4:15 AM EDT) Glucose 114 65 - 199 mg/dL [facility] Comment:Diabetes: >=200 mg/d L plus symptoms Blood Urea Nitrogen 15 10 - 20 mg/dL [facility] Creatinine 1.17 0.80 - 1.50 mg/dL [facility] Sodium 139 135 - 145 mmol/L [facility] Potassium 4.1 3.5 - 5.0 mmol/L [facility] Comment: Please note: ??Patients with WBC >100,000 may have falsely elevated Potassium levels. ??For accurate Potassium quantification in these patients send serum separator tube (gold top) for subsequent determinations. ??Contact the Clinical Chemistry Laboratory if there are any questions. Chloride 105 98 - 107 mmol/L [facility] Carbon Dioxide 20(L) 22 - 31 mmol/L [facility] Anion Gap 14 5 - 15 mmol/L [facility] Calcium 9.6 8.5 - 10.5 mg/dL [facility] Est Glomerular Filtration Rate 76 >=60 mL/min/1. 73 m?? [facility] Comment: This patient's estimated GFR [...] and symptoms in addition to eGFR. Blood 06/26/2023 4:15 AM EDT 06/26/2023 4:24 AM EDT Narrative Resulting Agency Comment Spec In Lab Rhoda Jimenez MD CHEMISTRY ORDERABLES [facility] [place] [address] * (ABNORMAL) Differential, Automated (06/23/2023 5:30 AM EDT) Neutrophil % 63.0 % [facility] Neutrophil Absolute 6.55(H) 1.70 - 6.10 x10(3)/mc L [facility] Lymph % 29.2 % [facility] Lymphocytes Abs 3.0 0.9 - 3.2 x10(3)/mc L [facility] Monocyte % 4.3 % [facility] Monocyte Abs 0.4 0.3 - 0.9 x10(3)/mc L [facility] Eos % 2.4 % [facility] Eosinophils Abs 0.2 0.0 - 0.4 x10(3)/mc L [facility] Basophil % 0.9 % [facility] Baso Absolute 0.1 0.0 - 0.1 x10(3)/mc L [facility] Immature Gran % 0.20 % [facility] Comment: Immature granulocytes(IG's)percentage and absolute count will include metamyelocytes, myelocytes, and promyelocytes. Blood smears from CBCs yielding IG's will be scanned manually for concordance. If this scan disagrees with the automated IG or if promyelocytes are noted, a manual differential will be performed. Immature Gran Absolute 0.02 0.00 - 0.04 x10(3)/[facility] Blood 06/23/2023 5:30 AM EDT 06/23/2023 5:36 AM EDT Narrative Resulting Agency Comment Spec In Lab Macie DURHAM HEMATOLOGY TRIP MCDUFFIE [facility] [place] [address] * (ABNORMAL) Hemogram (06/23/2023 5:30 AM EDT) White Blood Cell 10.4(H) 4.0 - 9.5 x10(3)/[facility] Red Blood Cell 5.81(H) 4.58 - 5.54 x10(6)/[facility] Hemoglobin 17.5(H) 13.7 - 16.5 g/dL [facility] Hematocrit 50.2(H) 40.5 - 48.5 % [facility] Mean Cell Volume 86.4 82.9 - 93.1 fL [facility] Mean Cell Hemoglobin 30.1 27.5 - 32.1 pg [facility] Mean Cell Hemoglobin Concentration 34.9 32.0 - 35.7 g/dL [facility] Platelet 231 145 - 357 x10(3)/[facility] RDW Standard Deviation 41.4 36.0 - 45.0 [facility] RDW coefficient of variation 13.2 11.4 - 13.8 % [facility] Mean Platelet Volume 8.5 7.6 - 12.9 [facility] NRBC% auto 0.0 % [facility] NRBC Absolute 0.000 0.000 - 0.000 x10(3)/mc L [facility] Blood 06/23/2023 5:30 AM EDT 06/23/2023 5:36 AM EDT Narrative Resulting Agency Comment Spec In Lab Macie DURHAM HEMATOLOGY TRIP MCDUFFIE [facility] [place] [address] * Phosphorus (06/23/2023 5:28 AM EDT) Phosphorus 2.9 2.5 - 4.5 mg/dL [facility] Blood 06/23/2023 5:28 AM EDT 06/23/2023 5:36 AM EDT Narrative Resulting Agency Comment Spec In Lab Dennis Castillo MD CHEMISTRY ORDERABLES Performing Organization Address City/[facility]/ZIP Co de Phone Number [facility] [place] [address] * Magnesium (06/23/2023 5:28 AM EDT) Pathologist [facility] Magnesium 0.94 0.69 - 1.07 mmol/L [facility] Blood 06/23/2023 5:28 AM EDT 06/23/2023 5:36 AM EDT Narrative Resulting Agency Comment Spec In Lab Dennis Castillo MD CHEMISTRY ORDERABLES Performing Organization Address City/[facility]/ZIP Co de Phone Number [facility] [place] [address] * (ABNORMAL) Basic Metabolic Panel (non-fasting) (06/23/2023 5:28 AM EDT) Glucose 111 65 - 199 mg/dL [facility] Comment:Diabetes: >=200 mg/d L plus symptoms Blood Urea Nitrogen 18 10 - 20 mg/dL [facility] Creatinine 1.22 0.80 - 1.50 mg/dL [facility] Sodium 140 135 - 145 mmol/L [facility] Potassium 4.1 3.5 - 5.0 mmol/L [facility] Comment: Please note: ??Patients with WBC >100,000 may have falsely elevated Potassium levels. ??For accurate Potassium quantification in these patients send serum separator tube (gold top) for subsequent determinations. ??Contact the Clinical Chemistry Laboratory if there are any questions. Chloride 106 98 - 107 mmol/L [facility] Carbon Dioxide 20(L) 22 - 31 mmol/L [facility] Anion Gap 14 5 - 15 mmol/L [facility] Calcium 9.3 8.5 - 10.5 mg/dL [facility] Est Glomerular Filtration Rate 72 >=60 mL/min/1. 73 m?? [facility] Comment: This patient's estimated GFR [...] and symptoms in addition to eGFR. Blood 06/23/2023 5:28 AM EDT 06/23/2023 5:36 AM EDT Narrative Resulting Agency Comment Spec In Lab Dennis Castillo MD CHEMISTRY ORDERABLES [facility] [place] [address] * (ABNORMAL) Differential, Automated (06/22/2023 4:20 AM EDT) Neutrophil % 61.6 % [facility] Neutrophil Absolute 6.81(H) 1.70 - 6.10 x10(3)/[facility] Lymph % 29.7 % [facility] Lymphocytes Abs 3.3(H) 0.9 - 3.2 x10(3)/[facility] Monocyte % 5.2 % [facility] Monocyte Abs 0.6 0.3 - 0.9 x10(3)/[facility] Eos % 2.5 % [facility] Eosinophils Abs 0.3 0.0 - 0.4 x10(3)/[facility] Basophil % 0.8 % [facility] Baso Absolute 0.1 0.0 - 0.1 x10(3)/[facility] Immature Gran % 0.20 % [facility] Comment: Immature granulocytes(IG's)percentage and absolute count will include metamyelocytes, myelocytes, and promyelocytes. Blood smears from CBCs yielding IG's will be scanned manually for concordance. If this scan disagrees with the automated IG or if promyelocytes are noted, a manual differential will be performed. Immature Gran Absolute 0.02 0.00 - 0.04 x10(3)/[facility] Blood 06/22/2023 4:20 AM EDT 06/22/2023 4:28 AM EDT Narrative Resulting Agency Comment Spec In Lab Macie DURHAM HEMATOLOGY TRIP MCDUFFIE [facility] [place] [address] * (ABNORMAL) Hemogram (06/22/2023 4:20 AM EDT) White Blood Cell 11.1(H) 4.0 - 9.5 x10(3)/[facility] Red Blood Cell 5.76(H) 4.58 - 5.54 x10(6)/[facility] Hemoglobin 17.3(H) 13.7 - 16.5 g/dL [facility] Hematocrit 49.8(H) 40.5 - 48.5 % [facility] Mean Cell Volume 86.5 82.9 - 93.1 fL [facility] Mean Cell Hemoglobin 30.0 27.5 - 32.1 pg [facility] Mean Cell Hemoglobin Concentration 34.7 32.0 - 35.7 g/dL [facility] Platelet 233 145 - 357 x10(3)/mc L [facility] RDW Standard Deviation 42.1 36.0 - 45.0 [facility] LABORATORY RDW coefficient of variation 13.2 11.4 - 13.8 % [facility] Mean Platelet Volume 8.8 7.6 - 12.9 [facility] LABORATORY NRBC% auto 0.0 % [facility] NRBC Absolute 0.000 0.000 - 0.000 x10(3)/mc L [facility] Blood 06/22/2023 4:20 AM EDT 06/22/2023 4:28 AM EDT Narrative Resulting Agency Comment Spec In Lab Macie DURHAM HEMATOLOGY TRIP MCDUFFIE [facility] [place] [address] * (ABNORMAL) Basic Metabolic Panel (non-fasting) (06/22/2023 4:10 AM EDT) Glucose 109 65 - 199 mg/dL [facility] Comment:Diabetes: >=200 mg/d L plus symptoms Blood Urea Nitrogen 19 10 - 20 mg/dL [facility] Creatinine 1.21 0.80 - 1.50 mg/dL [facility] Sodium 135 135 - 145 mmol/L [facility] Potassium 4.1 3.5 - 5.0 mmol/L [facility] Comment: Please note: ??Patients with WBC >100,000 may have falsely elevated Potassium levels. ??For accurate Potassium quantification in these patients send serum separator tube (gold top) for subsequent determinations. ??Contact the Clinical Chemistry Laboratory if there are any questions. Chloride 103 98 - 107 mmol/L [facility] Carbon Dioxide 20(L) 22 - 31 mmol/L [facility] Anion Gap 12 5 - 15 mmol/L [facility] Calcium 9.2 8.5 - 10.5 mg/dL [facility] Est Glomerular Filtration Rate 73 >=60 mL/min/1. 73 m?? [facility] Comment: This patient's estimated GFR [...] and symptoms in addition to eGFR. Blood 06/22/2023 4:10 AM EDT 06/22/2023 4:28 AM EDT Narrative Resulting Agency Comment Spec In Lab Dennis Castillo MD CHEMISTRY ORDERABLES [facility] [place] [address] * Phosphorus (06/22/2023 3:10 AM EDT) Phosphorus 3.1 2.5 - 4.5 mg/dL [facility] Blood 06/22/2023 3:10 AM EDT 06/22/2023 3:18 AM EDT Narrative Resulting Agency Comment Spec In Lab Dennis Castillo MD CHEMISTRY ORDERABLES [facility] [place] [address] * Magnesium (06/22/2023 3:10 AM EDT) Magnesium 0.91 0.69 - 1.07 mmol/L [facility] Blood 06/22/2023 3:10 AM EDT 06/22/2023 3:18 AM EDT Narrative Resulting Agency Comment Spec In Lab Dennis Castillo MD CHEMISTRY ORDERABLES [facility] [place] [address] * (ABNORMAL) Basic Metabolic Panel (non-fasting) (06/22/2023 3:10 AM EDT) Glucose 106 65 - 199 mg/dL [facility] Comment:Diabetes: >=200 mg/d L plus symptoms Blood Urea Nitrogen 18 10 - 20 mg/dL [facility] Creatinine 1.21 0.80 - 1.50 mg/dL [facility] Sodium 136 135 - 145 mmol/L [facility] Potassium 4.2 3.5 - 5.0 mmol/L [facility] Comment: Please note: ??Patients with WBC >100,000 may have falsely elevated Potassium levels. ??For accurate Potassium quantification in these patients send serum separator tube (gold top) for subsequent determinations. ??Contact the Clinical Chemistry Laboratory if there are any questions. Chloride 104 98 - 107 mmol/L [facility] Carbon Dioxide 20(L) 22 - 31 mmol/L [facility] Anion Gap 12 5 - 15 mmol/L [facility] Calcium 9.2 8.5 - 10.5 mg/dL [facility] Est Glomerular Filtration Rate 73 >=60 mL/min/1. 73 m?? [facility] Comment: This patient's estimated GFR [...] and symptoms in addition to eGFR. Blood 06/22/2023 3:10 AM EDT 06/22/2023 3:18 AM EDT Narrative Resulting Agency Comment Spec In Lab Dennis Castillo MD CHEMISTRY ORDERABLES [facility] [place] [address] * (ABNORMAL) Differential, Automated (06/21/2023 2:22 AM EDT) Neutrophil % 64.1 % [facility] Neutrophil Absolute 6.59(H) 1.70 - 6.10 x10(3)/mc L [facility] Lymph % 28.2 % [facility] Lymphocytes Abs 2.9 0.9 - 3.2 x10(3)/mc L [facility] Monocyte % 5.2 % [facility] Monocyte Abs 0.5 0.3 - 0.9 x10(3)/mc L [facility] Eos % 1.6 % [facility] Eosinophils Abs 0.2 0.0 - 0.4 x10(3)/mc L [facility] Basophil % 0.6 % [facility] Baso Absolute 0.1 0.0 - 0.1 x10(3)/mc L [facility] Immature Gran % 0.30 % [facility] Comment: Immature granulocytes(IG's)percentage and absolute count will include metamyelocytes, myelocytes, and promyelocytes. Blood smears from CBCs yielding IG's will be scanned manually for concordance. If this scan disagrees with the automated IG or if promyelocytes are noted, a manual differential will be performed. Immature Gran Absolute 0.03 0.00 - 0.04 x10(3)/mc L [facility] Blood 06/21/2023 2:22 AM EDT 06/21/2023 2:33 AM EDT Narrative Resulting Agency Comment Spec In Lab Macie DURHAM HEMATOLOGY TRIP MCDUFFIE [facility] [place] [address] * (ABNORMAL) Hemogram (06/21/2023 2:22 AM EDT) White Blood Cell 10.3(H) 4.0 - 9.5 x10(3)/[facility] Red Blood Cell 5.92(H) 4.58 - 5.54 x10(6)/[facility] Hemoglobin 17.8(H) 13.7 - 16.5 g/dL [facility] Hematocrit 51.9(H) 40.5 - 48.5 % [facility] Mean Cell Volume 87.7 82.9 - 93.1 [facility] Mean Cell Hemoglobin 30.1 27.5 - 32.1 pg [facility] Mean Cell Hemoglobin Concentration 34.3 32.0 - 35.7 g/dL [facility] Platelet 244 145 - 357 x10(3)/[facility] RDW Standard Deviation 42.8 36.0 - 45.0 [facility]ORY RDW coefficient of variation 13.2 11.4 - 13.8 % [facility] Mean Platelet Volume 8.7 7.6 - 12.9 [facility] LAB[facility]ORY NRBC% auto 0.0 % [facility] NRBC Absolute 0.000 0.000 - 0.000 x10(3)/[facility] Blood 06/21/2023 2:22 AM EDT 06/21/2023 2:33 AM EDT Narrative Resulting Agency Comment Spec In Lab Macie DURHAM HEMATOLOGY ORDAngeles MCDUFFIE Performing Organization Address City/[facility]/ZIP Co de Phone Number [facility] [place] [address] * Phosphorus (06/21/2023 2:22 AM EDT) Phosphorus 3.6 2.5 - 4.5 mg/dL [facility] Blood 06/21/2023 2:22 AM EDT 06/21/2023 2:33 AM EDT Narrative Resulting Agency Comment Spec In Lab Dennis Castillo MD CHEMISTRY ORDERABLES Performing Organization Address [facility] Co de Phone Number [facility] [place] [address] * Magnesium (06/21/2023 2:22 AM EDT) Pathologist [facility] Magnesium 0.99 0.69 - 1.07 mmol/L [facility] Blood 06/21/2023 2:22 AM EDT 06/21/2023 2:33 AM EDT Narrative Resulting Agency Comment Spec In Lab Dennis Castillo MD CHEMISTRY ORDERABLES Performing Organization Address [facility] Co de Phone Number [facility] [place] [address] * (ABNORMAL) Basic Metabolic Panel (non-fasting) (06/21/2023 2:22 AM EDT) Glucose 101 65 - 199 mg/dL [facility] Comment:Diabetes: >=200 mg/d L plus symptoms Blood Urea Nitrogen 17 10 - 20 mg/dL [facility] Creatinine 1.16 0.80 - 1.50 mg/dL [facility] Sodium 137 135 - 145 mmol/L [facility] Potassium 4.2 3.5 - 5.0 mmol/L [facility] Comment: Please note: ??Patients with WBC >100,000 may have falsely elevated Potassium levels. ??For accurate Potassium quantification in these patients send serum separator tube (gold top) for subsequent determinations. ??Contact the Clinical Chemistry Laboratory if there are any questions. Chloride 104 98 - 107 mmol/L [facility] Carbon Dioxide 20(L) 22 - 31 mmol/L [facility] Anion Gap 13 5 - 15 mmol/L [facility] Calcium 9.2 8.5 - 10.5 mg/dL [facility] Est Glomerular Filtration Rate 77 >=60 mL/min/1. 73 m?? [facility] Comment: This patient's estimated GFR [...] and symptoms in addition to eGFR. Blood 06/21/2023 2:22 AM EDT 06/21/2023 2:33 AM EDT Narrative Resulting Agency Comment Spec In Lab Dennis Castillo MD CHEMISTRY ORDERABLES Performing Organization Address City/State/[facility] Co de Phone Number [facility] [place] [address] * Surgical Pathology Report (06/20/2023 2:24 PM EDT) Final Diagnosis [id number] ? Location: W; 0346; A The signing pathologist has (i) examined the relevant preparation(s) for the specimen(s) and (ii) rendered or confirmed the diagnosis(es). . ?Surgical Pathology DIAGNOSIS A - Explanted POINT OF CARE 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 catheter and attached soft tissue, excision: - Catheter identified (gross examination) - Associated dense fibrous connective tissue with calcifications Electronically signed by: ?Tatiana LEE, PhD, Russell Gilmore Verified: ??07/01/2023 13:52 ??Dermatopatholog ist, Bone & Soft Tissue Pathologist Performed at: ??-[facility] Dept. of Pathology, [place] [address] General Operator: Jayjay Covarrubias MD, AP, ??CLIA Certificate: [id number] SPECIMEN(S) SUBMITTED A - explanted POINT OF CARE 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 catheter, excision (1) CLINICAL INFORMATION POINT OF CARE 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 revision SPECIMEN PROCESSING A - Labeled/Fixative: Explanted POINT OF CARE 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 catheter, fresh. Quantity/Size: Four, ranging from 0.5 cm, to 30.0 x 0.2 cm. Tissue Description: Patent segments of white to thompson-pink synthetic tubing, the longer with 1.0 cm shiny vu metal connector. The shortest segment has a 0.6 x 0.3 x 0.3 cm attached fragment of vu-pink, gritty soft tissue Sections/Processi ng: Entirety of the attached soft tissue is submitted in 1 cassette labeled A1. ??shb 07/01/2023 1:52 PM EDT [facility] FOREIGN BODY / Unknown 06/20/2023 2:24 PM EDT 06/20/2023 2:24 PM EDT Arely Murray MD PATHOLOGY/CYTOLOGY O KORY [facility] [place] [id number] * Specimen to Pathology (06/20/2023 2:24 PM EDT) AP Specimen 06/20/2023 2:24 PM EDT 06/20/2023 2:24 PM EDT Narrative [facility] - 06/20/2023 2:24 PM EDT Specimen requisition ordered. ??Separate Pathology report to follow Rhoda Jimenez MD PATHOLOGY/CYTOLOGY O RDJOAQUÍNBLES Performing Organization Address City/[facility]/ZIP Co de Phone Number [facility] [place] [address] * (ABNORMAL) Differential, Automated (06/20/2023 5:16 AM EDT) Neutrophil % 60.4 % [facility] Neutrophil Absolute 6.58(H) 1.70 - 6.10 x10(3)/mc L [facility] Lymph % 31.7 % [facility] Lymphocytes Abs 3.4(H) 0.9 - 3.2 x10(3)/mc L [facility] Monocyte % 5.2 % [facility] Monocyte Abs 0.6 0.3 - 0.9 x10(3)/mc L [facility] Eos % 1.7 % [facility] Eosinophils Abs 0.2 0.0 - 0.4 x10(3)/ L [facility] Basophil % 0.6 % [facility] Baso Absolute 0.1 0.0 - 0.1 x10(3)/mc L [facility] Immature Gran % 0.40 % [facility] Comment: Immature granulocytes(IG's)percentage and absolute count will include metamyelocytes, myelocytes, and promyelocytes. Blood smears from CBCs yielding IG's will be scanned manually for concordance. If this scan disagrees with the automated IG or if promyelocytes are noted, a manual differential will be performed. Immature Gran Absolute 0.04 0.00 - 0.04 x10(3)/mc L [facility] Blood 06/20/2023 5:16 AM EDT 06/20/2023 5:23 AM EDT Narrative Resulting Agency Comment Spec In Lab Macie DURHAM HEMATOLOGY TRIP MCDUFFIE Performing Organization Address [facility]/ZIP Co de Phone Number [facility] [place] [address] * (ABNORMAL) Hemogram (06/20/2023 5:16 AM EDT) White Blood Cell 10.9(H) 4.0 - 9.5 x10(3)/[facility] Red Blood Cell 5.93(H) 4.58 - 5.54 x10(6)/[facility] Hemoglobin 17.6(H) 13.7 - 16.5 g/dL [facility] Hematocrit 51.5(H) 40.5 - 48.5 % [facility] Mean Cell Volume 86.8 82.9 - 93.1 fL [facility] Mean Cell Hemoglobin 29.7 27.5 - 32.1 pg [facility] Mean Cell Hemoglobin Concentration 34.2 32.0 - 35.7 g/dL [facility] Platelet 253 145 - 357 x10(3)/[facility] RDW Standard Deviation 42.1 36.0 - 45.0 [facility] LAB[facility]ATORY RDW coefficient of variation 13.2 11.4 - 13.8 % [facility] Mean Platelet Volume 8.7 7.6 - 12.9 [facility] LAB[facility]ORY NRBC% auto 0.0 % [facility] NRBC Absolute 0.000 0.000 - 0.000 x10(3)/[facility] Blood 06/20/2023 5:16 AM EDT 06/20/2023 5:23 AM EDT Narrative Resulting Agency Comment Spec In Lab Macie DURHAM HEMATOLOGY TRIP MCDUFFIE [facility] [place] [address] * Phosphorus (06/20/2023 5:15 AM EDT) Phosphorus 3.2 2.5 - 4.5 mg/dL [facility] Blood 06/20/2023 5:15 AM EDT 06/20/2023 5:23 AM EDT Narrative Resulting Agency Comment Spec In Lab Dennis Castillo MD CHEMISTRY ORDERABLES Performing Organization Address City/[facility]/ZIP Co de Phone Number [facility] [place] [address] * Magnesium (06/20/2023 5:15 AM EDT) Magnesium 0.99 0.69 - 1.07 mmol/L [facility] Blood 06/20/2023 5:15 AM EDT 06/20/2023 5:23 AM EDT Narrative Resulting Agency Comment Spec In Lab Dennis Castillo MD CHEMISTRY ORDERABLES Performing Organization Address [facility] de Phone Number [facility] [place] [address] * (ABNORMAL) Basic Metabolic Panel (non-fasting) (06/20/2023 5:15 AM EDT) Glucose 109 65 - 199 mg/dL [facility] Comment:Diabetes: >=200 mg/d L plus symptoms Blood Urea Nitrogen 17 10 - 20 mg/dL [facility] Creatinine 1.11 0.80 - 1.50 mg/dL [facility] Sodium 138 135 - 145 mmol/L [facility] Potassium 3.9 3.5 - 5.0 mmol/L [facility] Comment: Please note: ??Patients with WBC >100,000 may have falsely elevated Potassium levels. ??For accurate Potassium quantification in these patients send serum separator tube (gold top) for subsequent determinations. ??Contact the Clinical Chemistry Laboratory if there are any questions. Chloride 104 98 - 107 mmol/L [facility] Carbon Dioxide 20(L) 22 - 31 mmol/L [facility] Anion Gap 14 5 - 15 mmol/L [facility] Calcium 9.6 8.5 - 10.5 mg/dL [facility] Est Glomerular Filtration Rate 81 >=60 mL/min/1. 73 m?? [facility] Comment: This patient's estimated GFR [...] and symptoms in addition to eGFR. Blood 06/20/2023 5:15 AM EDT 06/20/2023 5:23 AM EDT Narrative Resulting Agency Comment Spec In Lab Dennis Castillo MD CHEMISTRY ORDERABLES Performing Organization Address City/[facility]/ZIP Co de Phone Number [facility] [place] [address] * Vancomycin Level, Random (06/20/2023 5:15 AM EDT) Pathologist [facility] Vancomycin, Random 11.0 mg/L M [facility] Comment: This level is for determination of the patient's vancomycin bxxl-wwnpa-xij-curve (AUC) value. Contact the inpatient pharmacy for interpretation. Blood 06/20/2023 5:15 AM EDT 06/20/2023 5:23 AM EDT Rhoda Jimenez MD CHEMISTRY ORDERABLES [facility] [place] [address] * EKG 12 Lead (06/19/2023 2:04 PM EDT) Ventricular rate 77 BPM MUSE SYSTEM Atrial Rate 77 BPM MUSE SYSTEM P-R Interval 124 ms MUSE SYSTEM QRS Duration 74 ms MUSE SYSTEM Q-T Interval 240 ms MUSE SYSTEM QTC Calculated (Bezet) 271 ms MUSE SYSTEM Calculated P [place] 30 degrees MUSE SYSTEM Calculated R [place] 8 degrees MUSE SYSTEM Calculated T [place] -47 degrees MUSE SYSTEM INTERPRETATION Normal sinus rhythm Nonspecific ST and T wave abnormality Abnormal ECG When compared with ECG of 23-MAR-2019 16:17, Nonspecific T wave abnormality, worse in Inferior leads Nonspecific T wave abnormality now evident in Anterolateral leads QT has shortened Confirmed by MD Juan, Fela ([id number]) on 06/22/2023 6:25:56 AM MUSE SYSTEM 06/19/2023 2:04 PM EDT 06/22/2023 6:25 AM EDT Andrew Laws APRN ECG ORDERABLES MUSE SYSTEM * (ABNORMAL) Differential, Automated (06/19/2023 3:30 AM EDT) Neutrophil % 60.2 % [facility] Neutrophil Absolute 6.17(H) 1.70 - 6.10 x10(3)/ L [facility] Lymph % 32.0 % [facility] Lymphocytes Abs 3.3(H) 0.9 - 3.2 x10(3)/mc L [facility] Monocyte % 5.2 % [facility] Monocyte Abs 0.5 0.3 - 0.9 x10(3)/ L [facility] Eos % 1.7 % [facility] Eosinophils Abs 0.2 0.0 - 0.4 x10(3)/ L [facility] Basophil % 0.6 % [facility] Baso Absolute 0.1 0.0 - 0.1 x10(3)/mc L [facility] Immature Gran % 0.30 % [facility] Comment: Immature granulocytes(IG's)percentage and absolute count will include metamyelocytes, myelocytes, and promyelocytes. Blood smears from CBCs yielding IG's will be scanned manually for concordance. If this scan disagrees with the automated IG or if promyelocytes are noted, a manual differential will be performed. Immature Gran Absolute 0.03 0.00 - 0.04 x10(3)/[facility] Blood 06/19/2023 3:30 AM EDT 06/19/2023 3:39 AM EDT Narrative Resulting Agency Comment Spec In Lab Macie DURHAM HEMATOLOGY TRIP MCDUFFIE [facility] [place] [address] * (ABNORMAL) Hemogram (06/19/2023 3:30 AM EDT) White Blood Cell 10.2(H) 4.0 - 9.5 x10(3)/[facility] Red Blood Cell 5.43 4.58 - 5.54 x10(6)/[facility] Hemoglobin 16.5 13.7 - 16.5 g/dL [facility] Hematocrit 47.6 40.5 - 48.5 % [facility] Mean Cell Volume 87.7 82.9 - 93.1 fL [facility] Mean Cell Hemoglobin 30.4 27.5 - 32.1 pg [facility] Mean Cell Hemoglobin Concentration 34.7 32.0 - 35.7 g/dL [facility] Platelet 214 145 - 357 x10(3)/[facility] RDW Standard Deviation 43.1 36.0 - 45.0 [facility] LAB[facility]ORY RDW coefficient of variation 13.4 11.4 - 13.8 % [facility] Mean Platelet Volume 8.9 7.6 - 12.9 [facility]ORY NRBC% auto 0.0 % [facility] NRBC Absolute 0.000 0.000 - 0.000 x10(3)/[facility] Blood 06/19/2023 3:30 AM EDT 06/19/2023 3:39 AM EDT Narrative Resulting Agency Comment Spec In Lab Macie DURHAM HEMATOLOGY ORDE RETA Performing Organization Address City/[facility] Co de Phone Number [facility] [place] [address] * Phosphorus (06/19/2023 3:20 AM EDT) Pathologist [facility] Phosphorus 2.8 2.5 - 4.5 mg/dL [facility] Blood 06/19/2023 3:20 AM EDT 06/19/2023 3:39 AM EDT Narrative Resulting Agency Comment Spec In Lab Dennis Castillo MD CHEMISTRY ORDERABLES Performing Organization Address [facility] Co de Phone Number [facility] [place] [address] * Magnesium (06/19/2023 3:20 AM EDT) [facility] Magnesium 0.95 0.69 - 1.07 mmol/L [facility] Blood 06/19/2023 3:20 AM EDT 06/19/2023 3:39 AM EDT Narrative Resulting Agency Comment Spec In Lab Dennis Castillo MD CHEMISTRY ORDERABLES Performing Organization Address [facility] Co de Phone Number [facility] [place] [address] * Basic Metabolic Panel (non-fasting) (06/19/2023 3:20 AM EDT) Pathologist [facility] Glucose 113 65 - 199 mg/dL [facility] Comment:Diabetes: >=200 mg/d L plus symptoms Blood Urea Nitrogen 13 10 - 20 mg/dL [facility] Creatinine 1.22 0.80 - 1.50 mg/dL [facility] Sodium 139 135 - 145 mmol/L [facility] Potassium 4.1 3.5 - 5.0 mmol/L [facility] Comment: Please note: ??Patients with WBC >100,000 may have falsely elevated Potassium levels. ??For accurate Potassium quantification in these patients send serum separator tube (gold top) for subsequent determinations. ??Contact the Clinical Chemistry Laboratory if there are any questions. Chloride 106 98 - 107 mmol/L [facility] Carbon Dioxide 22 22 - 31 mmol/L [facility] Anion Gap 11 5 - 15 mmol/L [facility] Calcium 9.0 8.5 - 10.5 mg/dL [facility] Est Glomerular Filtration Rate 72 >=60 mL/min/1. 73 m?? [facility] Comment: This patient's estimated GFR [...] and symptoms in addition to eGFR. Blood 06/19/2023 3:20 AM EDT 06/19/2023 3:39 AM EDT Narrative Resulting Agency Comment Spec In Lab Dennis Castillo MD CHEMISTRY ORDERABLES Performing Organization Address City/State/[facility] Co de Phone Number [facility] [place] [address] * IR All Drainage Procedures (06/18/2023 3:44 PM EDT) Anatomical Region Laterality Modality X-Ray Angiograph y Narrative 06/18/2023 3:43 PM EDT Preoperative Diagnosis: Small fluid collection following CSF shunt revision. Postoperative Diagnosis: Same Procedure Performed: Ultrasound-guided aspiration abdominal wall. Operators: Bentley Arceo MD, Attending Estimated Blood Loss: None. Anesthesia: 1. ??1% lidocaine, local. The patient was informed of the risks, benefits, and alternatives to the procedure and gave written consent, which was then placed in the chart. Appropriate time-out was performed prior to the procedure. Description of Procedure: ??All elements of maximal sterile barrier technique were met including cap, mask, sterile gown, sterile gloves, large sterile sheet, hand hygiene and 2% chlorhexidine for cutaneous antisepsis. The abdomen was prepped and draped in the usual sterile fashion. ??Local anesthetic was administered. ? Using ultrasound guidance, a 21-gauge needle was advanced into the small fluid collection adjacent to the CSF shunt. ??This appeared less than 6 mm by ultrasound. ??Approximately 1 cc could be aspirated. ??The needle was removed. The patient tolerated the procedure well. Findings: Tiny fluid collection adjacent to CSF shunt repair. Impression: Tiny fluid collection adjacent to the CSF shunt repair. ??This was aspirated and sent for various labs as specified by the referring physician. I, the attending Interventional Radiologist performed the entire procedure. ?? Rhoda Jimenez MD [facility] IR ORDERABLES * Calcofluor White Stain (06/18/2023 2:54 PM EDT) Calcofluor Stain Calcofluor White Preparation: Negative [facility] Abdominal Fluid 06/18/2023 2 :54 PM EDT 06/18/2023 4:18 PM EDT Narrative Resulting Agency Comment Spec In Lab Claire DURHAM MICROBIOLOGY - GEN ERAL ORDERABLES Performing Organization Address [facility] Co de Phone Number [facility] [place] [address] * Fungus culture (06/18/2023 2:54 PM EDT) Fungus Culture No Fungus isolated [facility] Abdominal Fluid 06/18/2023 2 :54 PM EDT 06/18/2023 4:18 PM EDT Narrative Resulting Agency Comment Spec In Lab Claire DURHAM MICROBIOLOGY - GEN ERAL ORDERABLES Performing Organization Address [facility]/ZIP Co de Phone Number [facility] [place] [address] * Anaerobic Culture (06/18/2023 2:54 PM EDT) Anaerobic Culture No anaerobic organisms isolated [facility] Abdominal Fluid 06/18/2023 2 :54 PM EDT 06/18/2023 4:17 PM EDT Narrative Resulting Agency Comment Spec In Lab Claire DURHAM MICROBIOLOGY - GEN ERAL ORDERABLES Performing Organization Address City/[facility]/ZIP Co de Phone Number [facility] [place] [address] * (ABNORMAL) Body Fluid Culture, Aerobic (06/18/2023 2:54 PM EDT) Body Fluid Culture Rare Enterococcus faecalis(A) [facility] Gram Stain Rare Neutrophils seen No microorganisms seen. (A) [facility] Organism Enterococcus faecalis(A) [facility] Abdominal Fluid 06/18/2023 2 :54 PM EDT 06/18/2023 4:17 PM EDT Narrative Resulting Agency Comment Spec In Lab Organism Antibiotic Method Susceptibility Enterococcus faecalis Ampicillin VITEK 2 METHOD Sensitive Comment: Susceptibility implies high dose therapy. ??Penicillin or Ampicillin combined with an aminoglycoside is recommended for serious infections. Synergy is predicted for Gentamicin. Enterococcus faecalis Erythromycin VITEK 2 METHOD Intermediate Enterococcus faecalis Gentamicin 500 VITEK 2 METHOD Sensitive Comment: Susceptibility implies high dose therapy. ??Penicillin or Ampicillin combined with an aminoglycoside is recommended for serious infections. Synergy is predicted for Gentamicin. Enterococcus faecalis Penicillin VITEK 2 METHOD Sensitive Enterococcus faecalis Streptomycin 1000 VITEK 2 METHOD Sensitive Enterococcus faecalis Vancomycin VITEK 2 METHOD Sensitive Claire DURHAM MICROBIOLOGY - GEN ERAL ORDERABLES Performing Organization Address City/[facility]/ZIP Co de Phone Number [facility] [place] [address] * (ABNORMAL) Differential, Automated (06/18/2023 2:10 AM EDT) Neutrophil % 65.6 % [facility] Neutrophil Absolute 7.27(H) 1.70 - 6.10 x10(3)/mc L [facility] Lymph % 26.2 % [facility] Lymphocytes Abs 2.9 0.9 - 3.2 x10(3)/ L [facility] Monocyte % 5.5 % [facility] Monocyte Abs 0.6 0.3 - 0.9 x10(3)/[facility] Eos % 1.8 % [facility] Eosinophils Abs 0.2 0.0 - 0.4 x10(3)/[facility] Basophil % 0.6 % [facility] Baso Absolute 0.1 0.0 - 0.1 x10(3)/[facility] Immature Gran % 0.30 % [facility] Comment: Immature granulocytes(IG's)percentage and absolute count will include metamyelocytes, myelocytes, and promyelocytes. Blood smears from CBCs yielding IG's will be scanned manually for concordance. If this scan disagrees with the automated IG or if promyelocytes are noted, a manual differential will be performed. Immature Gran Absolute 0.03 0.00 - 0.04 x10(3)/[facility] Blood 06/18/2023 2:10 AM EDT 06/18/2023 2:19 AM EDT Narrative Resulting Agency Comment Spec In Lab Macie DURHAM HEMATOLOGY TRIP MCDUFFIE Performing Organization Address City/State/[facility] Co de Phone Number [facility] [place] [address] * (ABNORMAL) Hemogram (06/18/2023 2:10 AM EDT) White Blood Cell 11.1(H) 4.0 - 9.5 x10(3)/[facility] Red Blood Cell 5.33 4.58 - 5.54 x10(6)/[facility] Hemoglobin 15.7 13.7 - 16.5 g/dL [facility] Hematocrit 46.3 40.5 - 48.5 % [facility] Mean Cell Volume 86.9 82.9 - 93.1 fL [facility] Mean Cell Hemoglobin 29.5 27.5 - 32.1 pg [facility] Mean Cell Hemoglobin Concentration 33.9 32.0 - 35.7 g/dL [facility] Platelet 201 145 - 357 x10(3)/mc L [facility] RDW Standard Deviation 43.4 36.0 - 45.0 fL [facility] RDW coefficient of variation 13.5 11.4 - 13.8 % [facility] Mean Platelet Volume 9.1 7.6 - 12.9 fL [facility] NRBC% auto 0.0 % [facility] NRBC Absolute 0.000 0.000 - 0.000 x10(3)/mc L [facility] Blood 06/18/2023 2:10 AM EDT 06/18/2023 2:19 AM EDT Narrative Resulting Agency Comment Spec In Lab Macie DURHAM HEMATOLOGY ORDE RABLES Performing Organization Address City/[facility]/ZIP Co de Phone Number [facility] [place] [address] * (ABNORMAL) Phosphorus (06/18/2023 2:10 AM EDT) Phosphorus 2.2(L) 2.5 - 4.5 mg/dL [facility] Blood 06/18/2023 2:10 AM EDT 06/18/2023 2:19 AM EDT Narrative Resulting Agency Comment Spec In Lab Dennis Castillo MD CHEMISTRY ORDERABLES Performing Organization Address City/[facility]/ZIP Co de Phone Number [facility] [place] [address] * Magnesium (06/18/2023 2:10 AM EDT) Magnesium 0.91 0.69 - 1.07 mmol/L [facility] Blood 06/18/2023 2:10 AM EDT 06/18/2023 2:19 AM EDT Narrative Resulting Agency Comment Spec In Lab Dennis Castillo MD CHEMISTRY ORDERABLES [facility] [place] [address] * Basic Metabolic Panel (non-fasting) (06/18/2023 2:10 AM EDT) Glucose 123 65 - 199 mg/dL [facility] Comment:Diabetes: >=200 mg/d L plus symptoms Blood Urea Nitrogen 14 10 - 20 mg/dL [facility] Creatinine 1.12 0.80 - 1.50 mg/dL [facility] Sodium 138 135 - 145 mmol/L [facility] Potassium 4.2 3.5 - 5.0 mmol/L [facility] Comment: Please note: ??Patients with WBC >100,000 may have falsely elevated Potassium levels. ??For accurate Potassium quantification in these patients send serum separator tube (gold top) for subsequent determinations. ??Contact the Clinical Chemistry Laboratory if there are any questions. Chloride 106 98 - 107 mmol/L [facility] Carbon Dioxide 22 22 - 31 mmol/L [facility] Anion Gap 10 5 - 15 mmol/L [facility] Calcium 8.9 8.5 - 10.5 mg/dL [facility] Est Glomerular Filtration Rate 80 >=60 mL/min/1. 73 m?? [facility] Comment: This patient's estimated GFR [...] and symptoms in addition to eGFR. Blood 06/18/2023 2:10 AM EDT 06/18/2023 2:19 AM EDT Narrative Resulting Agency Comment Spec In Lab Dennis Castillo MD CHEMISTRY ORDERABLES Performing Organization Address [facility] de Phone Number [facility] [place] [address] * Vancomycin, trough (06/18/2023 2:10 AM EDT) Vancomycin, Trough 12.6 mg/L [facility] Comment: Therapeutic range for complicated infections such as bacteremia, endocarditis, osteomyelitis, meningitis, and hospital-acquired pneumonia caused by S. aureus: 15-20 mg/L Therapeutic range for other indications: 10-15 mg/L Toxic: >20 mg/L Reference: Vancomycin Therapeutic Monitoring: Review and Recommendations from the ASHP, IDSA and SIDP Task Force. ??Am J Health-Syst Pharm. 2009; 66:82-98 Blood 06/18/2023 2:10 AM EDT 06/18/2023 2:19 AM EDT Narrative Resulting Agency Comment Spec In Lab Rhoda Jimenez MD CHEMISTRY ORDERABLES Performing Organization Address [facility] Co de Phone Number [facility] [place] [address] * (ABNORMAL) Differential, Automated (06/17/2023 3:50 AM EDT) Neutrophil % 67.5 % [facility] Neutrophil Absolute 8.27(H) 1.70 - 6.10 x10(3)/mc L [facility] Lymph % 24.4 % [facility] Lymphocytes Abs 3.0 0.9 - 3.2 x10(3)/mc L [facility] Monocyte % 6.7 % [facility] Monocyte Abs 0.8 0.3 - 0.9 x10(3)/mc L [facility] Eos % 0.8 % [facility] Eosinophils Abs 0.1 0.0 - 0.4 x10(3)/[facility] Basophil % 0.4 % [facility] Baso Absolute 0.0 0.0 - 0.1 x10(3)/[facility] Immature Gran % 0.20 % [facility] Comment: Immature granulocytes(IG's)percentage and absolute count will include metamyelocytes, myelocytes, and promyelocytes. Blood smears from CBCs yielding IG's will be scanned manually for concordance. If this scan disagrees with the automated IG or if promyelocytes are noted, a manual differential will be performed. Immature Gran Absolute 0.03 0.00 - 0.04 x10(3)/[facility] Blood 06/17/2023 3:50 AM EDT 06/17/2023 4:28 AM EDT Narrative Resulting Agency Comment Spec In Lab Macie DURHAM HEMATOLOGY TRIP MCDUFFIE [facility] [place] [address] * (ABNORMAL) Hemogram (06/17/2023 3:50 AM EDT) White Blood Cell 12.3(H) 4.0 - 9.5 x10(3)/[facility] Red Blood Cell 5.54 4.58 - 5.54 x10(6)/[facility] Hemoglobin 16.6(H) 13.7 - 16.5 g/dL [facility] Hematocrit 47.6 40.5 - 48.5 % [facility] Mean Cell Volume 85.9 82.9 - 93.1 fL [facility] Mean Cell Hemoglobin 30.0 27.5 - 32.1 pg [facility] Mean Cell Hemoglobin Concentration 34.9 32.0 - 35.7 g/dL [facility] Platelet 209 145 - 357 x10(3)/mc L [facility] RDW Standard Deviation 43.5 36.0 - 45.0 fL [facility] RDW coefficient of variation 13.9(H) 11.4 - 13.8 % [facility] Mean Platelet Volume 9.1 7.6 - 12.9 fL [facility] NRBC% auto 0.0 % [facility] NRBC Absolute 0.000 0.000 - 0.000 x10(3)/mc L [facility] Blood 06/17/2023 3:50 AM EDT 06/17/2023 4:28 AM EDT Narrative Resulting Agency Comment Spec In Lab Macie DURHAM HEMATOLOGY ORDE RETA Performing Organization Address [facility]/ZIP Co de Phone Number [facility] [place] [address] * Phosphorus (06/17/2023 3:50 AM EDT) Phosphorus 2.6 2.5 - 4.5 mg/dL [facility] Blood 06/17/2023 3:50 AM EDT 06/17/2023 4:28 AM EDT Narrative Resulting Agency Comment Spec In Lab Dennis Castillo MD CHEMISTRY ORDERABLES Performing Organization Address [facility]/ZIP Co de Phone Number [facility] [place] [address] * Magnesium (06/17/2023 3:50 AM EDT) Magnesium 0.88 0.69 - 1.07 mmol/L [facility] Blood 06/17/2023 3:50 AM EDT 06/17/2023 4:28 AM EDT Narrative Resulting Agency Comment Spec In Lab Dennis Castillo MD CHEMISTRY ORDERABLES Performing Organization Address City/[facility]/ZIP Co de Phone Number [facility] [place] [address] * (ABNORMAL) Basic Metabolic Panel (non-fasting) (06/17/2023 3:50 AM EDT) Glucose 104 65 - 199 mg/dL [facility] Comment:Diabetes: >=200 mg/d L plus symptoms Blood Urea Nitrogen 15 10 - 20 mg/dL [facility] Creatinine 1.21 0.80 - 1.50 mg/dL [facility] Sodium 137 135 - 145 mmol/L [facility] Potassium 3.9 3.5 - 5.0 mmol/L [facility] Comment: Please note: ??Patients with WBC >100,000 may have falsely elevated Potassium levels. ??For accurate Potassium quantification in these patients send serum separator tube (gold top) for subsequent determinations. ??Contact the Clinical Chemistry Laboratory if there are any questions. Chloride 103 98 - 107 mmol/L [facility] Carbon Dioxide 21(L) 22 - 31 mmol/L [facility] Anion Gap 13 5 - 15 mmol/L [facility] Calcium 9.0 8.5 - 10.5 mg/dL [facility] Est Glomerular Filtration Rate 73 >=60 mL/min/1. 73 m?? [facility] Comment: This patient's estimated GFR [...] and symptoms in addition to eGFR. Blood 06/17/2023 3:50 AM EDT 06/17/2023 4:28 AM EDT Narrative Resulting Agency Comment Spec In Lab Dennis Castillo MD CHEMISTRY ORDERABLES Performing Organization Address City/[facility]/ZIP Co de Phone Number [facility] [place] [address] * CREAM RIPENER Shunt Culture (06/16/2023 5:40 PM EDT) Central Nervous System Shunt Culture No growth at 10 days. [facility] Gram Stain Cytocentrifuge Gram Stain performed No Neutrophils seen. No microorganisms seen. [facility] Cerebrospinal Shunt Fluid 06/16/2023 5:40 PM EDT 06/16/2023 6:11 PM EDT Narrative Resulting Agency Comment Spec In Lab Lisa Bautista MD MICROBIOLOGY - GENE RAL ORDERABLES Performing Organization Address [facility] Co de Phone Number [facility] [place] [address] * CSF Cell Count (06/16/2023 5:40 PM EDT) Tube # counted 1 [facility] AUTO NUC CSF CT 0 0 - 5 /mcl [facility] Comment: If Nucleated CSF CT result [...] correlated with clinical condition. RBC CSF CT 2 /mcl [facility] Cerebrospinal Fluid 06/16/19 5:40 PM EDT 06/16/2023 6:01 PM EDT Narrative Resulting Agency Comment Spec In Lab Lisa Bautista MD BODY FLUIDS AND STO OLS ORDERABLES Performing Organization Address [facility] Co de Phone Number [facility] [place] [address] * CSF DESC 1 (06/16/2023 5:40 PM EDT) Tube Num CSF #1 1 [facility] Color, CSF Colorless Colorless [facility] Appearance, CSF Clear Clear [facility] Total Vol, CSF 1.0 mL [facility] Cerebrospinal Fluid 06/16/19 5:40 PM EDT 06/16/2023 6:01 PM EDT Narrative Resulting Agency Comment Spec In Lab Lisa Bautista MD BODY FLUIDS AND STO OLS ORDERABLES [facility] [place] [address] * Glucose Level CSF (06/16/2023 5:36 PM EDT) Glucose, CSF 76 mg/dL [facility] Comment:CSF at equilibrium e quals approximately 60-80% of plasma glucose. Cerebrospinal Fluid 06/16/19 5:36 PM EDT 06/16/2023 6:01 PM EDT Narrative Resulting Agency Comment Spec In Lab Rhoda Jimenez MD BODY FLUIDS AND STOO LS ORDERABLES Performing Organization Address [facility]/ZIP Co de Phone Number [facility] [place] [address] * (ABNORMAL) Protein Level CSF (06/16/2023 5:36 PM EDT) Protein, CSF 7(L) 15 - 45 mg/dL [facility] Xanthochromia Neg [facility] Cerebrospinal Fluid 06/16/19 5:36 PM EDT 06/16/2023 6:01 PM EDT Narrative Resulting Agency Comment Spec In Lab Rhoda Jimenez MD BODY FLUIDS AND STOO LS ORDERABLES [facility] [place] [address] * CT Abdomen & Pelvis w Contrast (06/16/2023 2:04 PM EDT) WORKSTATION ID [id number] RAD Anatomical Region Laterality Modality Abdomen, Pelvis Computed Tomogra phy Impressions 06/16/2023 2:49 PM EDT 1. ??Interval revision of the shunt catheter, with tip in the left midabdomen, retracted slightly from prior position. There is a new 2.7 cm intraperitoneal fluid collection adjacent to the catheter tip; cannot differentiate loculated sterile from infected fluid. There are moderate inflammatory changes surrounding this. 2. ??New moderate inflammation in the right upper quadrant surrounding a 13 mm segment of discontinuity of the catheter tubing just above a metallic connector. There is a 3.3 cm fluid collection in this area suspicious for abscess with surrounding cellulitis. Thank you for letting us participate in the care of this patient. ??If you are a health care provider and have any questions regarding this report, please contact the number below. ??For patients who have questions please contact the health home care physical therapist that requested your imaging first. ? Electronically signed by: Adrianne Lao MD, [facility] ([phone]), at 06/16/2023 2:49 PM Narrative 06/16/2023 2:49 PM EDT EXAMINATION: CT ABDOMEN AND PELVIS [...] pericardial effusion. Bilateral lower lobe atelectasis. Liver: ??Normal size and attenuation with patent hepatic and [...] retroperitoneum: The intraperitoneal portion of the shunt catheter terminates in the mid upper abdomen and there [...] is a 3.3 cm peripherally enhancing fluid collection within the subcutaneous fat of the right upper [...] No suspicious lytic or sclerotic osseous lesions. Procedure Note Adrianne Lao MD - 06/16/2023 EXAMINATION: CT ABDOMEN AND PELVIS W CONTRAST CLINICAL HISTORY: Abdominal abscess/infection suspected recent shunt revision, worsening abd pain, leukocytosis, mild diffusetenderness worse at sunt incision site. TECHNIQUE: Helical CT of the abdomen and pelvis following theintravenous administration of contrast. Administered 83.0 ml of OMNIPAQUE 350.00mg/ml. Oral contrast was not administered. COMPARISON: 06/06/2023 CT, 06/16/2023 radiograph FINDINGS: Lower chest: No basilar pleural or pericardial effusion. Bilateral lowerlobe atelectasis. Liver: Normal size and attenuation with patent hepatic and portal veins.A subcentimeter ill-defined low-attenuation lesion in the subcapsular aspectof the left lobe cannot be characterized. Bile ducts: Nondilated. Gallbladder: Absent Pancreas: Normal attenuation without ductal dilatation. Spleen: Borderline enlarged, measuring 13.7 cm. No lesions. Adrenals: Normal. Kidneys: Symmetric nephrograms without lesions, hydronephrosis, orurolithiasis. Urinary Bladder: Mildly distended. No wall thickening or calculi. Vasculature: No abdominal aortic aneurysm. Lymph Nodes: No enlarged lymph nodes. Bowel: Limited assessment given the lack of oral contrast. No dilatedsmall or large bowel loops or bowel wall thickening. Normal terminal ileum. Theappendix is diminutive. Peritoneum and retroperitoneum: The intraperitoneal portion of the shunt catheter terminates in the mid upper abdomen and there is a triangularregion of mesenteric fat stranding surrounding the catheter tip as well as a triangular-shaped, 2.7 cm peripherally enhancing fluid collection (series3 image 59). The course of the catheter abuts a loop of small bowel. Nofree intraperitoneal air. No ascites. Abdominal wall: Shunt catheter tubing descends in the subcutaneous fat ofthe right lower chest and upper abdomen, and there is a 3.3 cm peripherally enhancing fluid collection within the subcutaneous fat of the rightupper quadrant surrounding the catheter at the point of catheter discontinuity.There are moderate inflammatory changes surrounding this (series 3 images [id number]).The discontinuity of the catheter measures 13 mm in length and occurs justcranial to a metallic connector. There is a tiny epigastric ventral herniacontaining fat. Bilateral fat-containing inguinal hernias. Reproductive organs: Normal. Osseous structures: No suspicious lytic or sclerotic osseous lesions. IMPRESSION 1. Interval revision of the shunt catheter, with tip in the leftmidabdomen, retracted slightly from prior position. There is a new 2.7 cmintraperitoneal fluid collection adjacent to the catheter tip; cannot differentiateloculated sterile from infected fluid. There are moderate inflammatory changessurrounding this. 2. New moderate inflammation in the right upper quadrant surrounding a 13mm segment of discontinuity of the catheter tubing just above a metallicconnector. There is a 3.3 cm fluid collection in this area suspicious for abscesswith surrounding cellulitis. Thank you for letting us participate in the care of this patient. If youare a health care provider and have any questions regarding this report,please contact the number below. For patients who have questions please contactthe health home care physical therapist that requested your imaging first. Electronically signed by: Adrianne Lao MD, [facility]([phone]), at 06/16/2023 2:49 PM Dennis Castillo MD IMG CT ORDERABLES * CSF Cell Count (06/16/2023 2:00 PM EDT) Tube # counted 1 [facility] AUTO NUC CSF CT 2 0 - 5 /mcl [facility] Comment: If Nucleated CSF CT result [...] correlated with clinical condition. RBC CSF CT 0 /mcl [facility] Cerebrospinal Fluid 06/16/19 2:00 PM EDT 06/16/2023 3:03 PM EDT Narrative Resulting Agency Comment Spec In Lab Lisa Bautista MD BODY FLUIDS AND STO OLS ORDERABLES [facility] [place] [address] * CSF DESC 1 (06/16/2023 2:00 PM EDT) Tube Num CSF #1 1 [facility] Color, CSF Colorless Colorless [facility] Appearance, CSF Clear Clear [facility] Total Vol, CSF 2.0 mL [facility] Cerebrospinal Fluid 06/16/19 2:00 PM EDT 06/16/2023 3:03 PM EDT Narrative Resulting Agency Comment Spec In Lab Lisa Bautista MD BODY FLUIDS AND STO OLS ORDERABLES Performing Organization Address [facility] Co de Phone Number [facility] [place] [address] * CREAM RIPENER Shunt Culture (06/16/2023 1:49 PM EDT) Central Nervous System Shunt Culture No growth at 10 days. [facility] Gram Stain Cytocentrifuge Gram Stain performed No Neutrophils seen. No microorganisms seen. [facility] Cerebrospinal Shunt Fluid 06/16/2023 1:49 PM EDT 06/16/2023 3:10 PM EDT Narrative Resulting Agency Comment Spec In Lab Lisa Bautista MD MICROBIOLOGY - GENE RAL ORDERABLES Performing Organization Address [facility] [facility] Co de Phone Number [facility] [place] [address] * Glucose Level CSF (06/16/2023 1:49 PM EDT) Glucose, CSF 79 mg/dL [facility] Comment:CSF at equilibrium e quals approximately 60-80% of plasma glucose. Cerebrospinal Fluid 06/16/19 1:49 PM EDT 06/16/2023 3:03 PM EDT Narrative Resulting Agency Comment Spec In Lab Dennis Castillo MD BODY FLUIDS AND STOO LS ORDERABLES Performing Organization Address [facility]/ZIP Co de Phone Number [facility] [place] [address] * (ABNORMAL) Protein Level CSF (06/16/2023 1:49 PM EDT) Protein, CSF 7(L) 15 - 45 mg/dL [facility] Xanthochromia Neg [facility] Cerebrospinal Fluid 06/16/19 1:49 PM EDT 06/16/2023 3:03 PM EDT Narrative Resulting Agency Comment Spec In Lab Dennis Castillo MD BODY FLUIDS AND STOO LS ORDERABLES [facility] [place] [address] * ABORH Recheck Status (06/16/2023 1:15 PM EDT) ABORH Type Recheck Completed [facility] Blood 06/16/2023 1:15 PM EDT 06/16/2023 1:27 PM EDT Narrative Resulting Agency Comment Spec In Lab Lisa Bautista MD BLOOD BANK LAB ORDE RABLES Performing Organization Address City/[facility]/ZIP Co de Phone Number [facility] [place] [address] * Type and screen ([facility]/CGP/DULCE MARIA) (06/16/2023 1:15 PM EDT) [facility] ABORH Type A POSITIVE [facility] Patient BB History Found [facility] Expires at [id number] on: 06-19-2023 [facility] Ab Screen Interp Negative [facility] Blood 06/16/2023 1:15 PM EDT 06/16/2023 1:15 PM EDT Narrative [facility] - 06/16/2023 1:15 PM EDT This Type and Screen result is only valid at the [facility] Resulting Agency Comment Spec In Lab Dennis Castillo MD BLOOD BANK LAB ORDER BELKIS Performing Organization Address [facility]/ZIP Co de Phone Number [facility] [place] [address] * APTT (06/16/2023 1:15 PM EDT) [facility] Partial Thromboplastin Time 32 25 - 37 sec [facility] Comment: The PTT is NOT appropriate for heparin monitoring. Use the Anti-Xa level for heparin monitoring (HEP UFH) or LMWH monitoring (HEP LMW). A PTT less than 37 seconds generally indicates adequate hemostasis. Blood 06/16/2023 1:15 PM EDT 06/16/2023 1:28 PM EDT Narrative Resulting Agency Comment Spec In Lab Dennis Castillo MD HEMATOLOGY ORDERABLE S Performing Organization Address [facility] Co de Phone Number [facility] [place] [address] * (ABNORMAL) Prothrombin Time (06/16/2023 1:15 PM EDT) Prothrombin Time 13.4(H) 9.4 - 12.5 sec [facility] International Normalization Ratio 1.2 [facility] Comment: An INR <2.0 indicates [...] be appropriate depending on clinical circumstances. Blood 06/16/2023 1:15 PM EDT 06/16/2023 1:28 PM EDT Narrative Resulting Agency Comment Spec In Lab Dennis Castillo MD HEMATOLOGY ORDERABLE S Performing Organization Address [facility] Co de Phone Number [facility] [place] [address] * Blood culture (06/16/2023 1:15 PM EDT) Blood Culture No growth at 5 days. [facility] Blood STRUCTURE OF RIGHT UPPER LIMB / Unknown 06/16/2023 1:15 PM EDT 06/16/2023 1:50 PM EDT Narrative Resulting Agency Comment Spec In Lab Dennis Castillo MD MICROBIOLOGY - BLOOD ORDERABLES Performing Organization Address [facility]/ZIP Co de Phone Number [facility] [place] [address] * Blood culture (06/16/2023 12:45 PM EDT) Blood Culture No growth at 5 days. [facility] Blood STRUCTURE OF LEFT UPPER LIMB / Unknown 06/16/2023 12:45 PM EDT 06/16/2023 1:10 PM EDT Narrative Resulting Agency Comment Spec In Lab Dennis Castillo MD MICROBIOLOGY - BLOOD ORDERABLES [facility] [place] [address] * (ABNORMAL) CRP, acute inflammation (06/16/2023 11:20 AM EDT) C-Reactive Protein 107.8(H) <=4.9 mg/L [facility] Blood Venous Draw / Unknown 06/16/2023 11:20 AM EDT 06/16/2023 11:39 AM EDT Narrative Resulting Agency Comment Spec In Lab Lisa Bautista MD CHEMISTRY ORDERABLE S Performing Organization Address [facility]/ZIP Co de Phone Number [facility] [place] [address] * (ABNORMAL) Sedimentation rate (06/16/2023 11:20 AM EDT) Sedimentation Rate Automated 47(H) 2 - 37 mm/hr [facility] Comment: Effective February 02, 2019 new capillary photometric technology has resulted in a change in reference ranges. It is recommended that each ESR result be reviewed with its own age appropriate reference range. Blood Venous Draw / Unknown 06/16/2023 11:20 AM EDT 06/16/2023 11:36 AM EDT Narrative Resulting Agency Comment Spec In Lab Lisa Bautista MD HEMATOLOGY ORDERABL ES Performing Organization Address City/[facility]/ZIP Co de Phone Number [facility] [place] [address] * (ABNORMAL) Differential, Automated (06/16/2023 11:20 AM EDT) Pathologist [facility] Neutrophil % 81.3 % [facility] Neutrophil Absolute 14.45(H) 1.70 - 6.10 x10(3)/mc L [facility] Lymph % 12.0 % [facility] Lymphocytes Abs 2.1 0.9 - 3.2 x10(3)/ L [facility] Monocyte % 5.7 % [facility] Monocyte Abs 1.0(H) 0.3 - 0.9 x10(3)/ L [facility] Eos % 0.3 % [facility] Eosinophils Abs 0.1 0.0 - 0.4 x10(3)/[facility] Basophil % 0.3 % [facility] Baso Absolute 0.0 0.0 - 0.1 x10(3)/ L [facility] Immature Gran % 0.40 % [facility] Comment: Immature granulocytes(IG's)percentage and absolute count will include metamyelocytes, myelocytes, and promyelocytes. Blood smears from CBCs yielding IG's will be scanned manually for concordance. If this scan disagrees with the automated IG or if promyelocytes are noted, a manual differential will be performed. Immature Gran Absolute 0.08(H) 0.00 - 0.04 x10(3)/ L [facility] Blood 06/16/2023 11:2 0 AM EDT 06/16/2023 11:36 AM EDT Narrative Resulting Agency Comment Spec In Lab Leighton Ordoñez MD HEMATOLOGY ORDERABLE S [facility] [place] [address] * (ABNORMAL) Hemogram (06/16/2023 11:20 AM EDT) White Blood Cell 17.8(H) 4.0 - 9.5 x10(3)/ L [facility] Red Blood Cell 5.94(H) 4.58 - 5.54 x10(6)/mc L [facility] Hemoglobin 17.9(H) 13.7 - 16.5 g/dL [facility] Hematocrit 51.4(H) 40.5 - 48.5 % [facility] Mean Cell Volume 86.5 82.9 - 93.1 fL [facility] Mean Cell Hemoglobin 30.1 27.5 - 32.1 pg [facility] Mean Cell Hemoglobin Concentration 34.8 32.0 - 35.7 g/dL [facility] Platelet 236 145 - 357 x10(3)/[facility]ORAT[facility] RDW Standard Deviation 42.5 36.0 - 45.0 [facility] RDW coefficient of variation 13.4 11.4 - 13.8 % [facility] Mean Platelet Volume 9.1 7.6 - 12.9 [facility] LABORATORY NRBC% auto 0.0 % [facility] NRBC Absolute 0.000 0.000 - 0.000 x10(3)/[facility] Blood 06/16/2023 11:2 0 AM EDT 06/16/2023 11:36 AM EDT Narrative Resulting Agency Comment Spec In Lab Leighton Ordoñez MD HEMATOLOGY ORDERABLE S [facility] [place] [address] * Basic Metabolic Panel (non-fasting) (06/16/2023 11:20 AM EDT) Glucose 105 65 - 199 mg/dL [facility] Comment:Diabetes: >=200 mg/d L plus symptoms Blood Urea Nitrogen 14 10 - 20 mg/dL [facility] Creatinine 1.20 0.80 - 1.50 mg/dL [facility] Sodium 140 135 - 145 mmol/L [facility] Potassium 4.2 3.5 - 5.0 mmol/L [facility] Comment: Please note: ??Patients with WBC >100,000 may have falsely elevated Potassium levels. ??For accurate Potassium quantification in these patients send serum separator tube (gold top) for subsequent determinations. ??Contact the Clinical Chemistry Laboratory if there are any questions. Chloride 103 98 - 107 mmol/L [facility] Carbon Dioxide 22 22 - 31 mmol/L [facility] Anion Gap 15 5 - 15 mmol/L [facility] Calcium 9.6 8.5 - 10.5 mg/dL [facility] Est Glomerular Filtration Rate 74 >=60 mL/min/1. 73 m?? [facility] Comment: This patient's estimated GFR [...] and symptoms in addition to eGFR. Blood 06/16/2023 11:2 0 AM EDT 06/16/2023 11:36 AM EDT Narrative Resulting Agency Comment Spec In Lab Dennis Castillo MD CHEMISTRY ORDERABLES [facility] [place] [address] * XR Shunt Series (06/16/2023 11:01 AM EDT) WORKSTATION ID [id number] DH RAD Anatomical Region Laterality Modality N/A Digital Radiogra phy Impressions 06/16/2023 11:51 AM EDT Right frontal approach POINT OF CARE 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 catheter with focal discontinuity at the segment where it enters the abdomen with 2.3 cm gap. ??Aside from this, the remaining catheter are intact Thank you for letting us participate in the care of this patient. ??If you are a health care provider and have any questions regarding this report, please contact the number below. ??For patients who have questions please contact the health home care physical therapist that requested your imaging first. ? Electronically signed by: Kraig Rizvi MD, [facility] ([phone]), at 06/16/2023 11:51 AM Narrative 06/16/2023 11:51 AM EDT EXAMINATION: XR SHUNT SERIES CLINICAL HISTORY: recent revision recent revision, new abdominal pain, headache. TECHNIQUE: Multiple AP and lateral views of skull, chest, abdomen. COMPARISON: Radiograph shunt series 06/09/2023 FINDINGS: Right frontal approach POINT OF CARE 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 catheter, with the intracranial portion terminating in the midline the extracranial portion courses along the right side of the neck along the anterior chest wall. ??On the lateral projection of the abdomen, there is a focal discontinuity of the catheter as it enters the abdomen, resulting in a 2.3 cm gap. ??The intra-abdominal portion of the catheter, courses toward the right lower quadrant terminates in the upper midline abdomen. ??No discontinuity of the intra-abdominal portion of the catheter. Unchanged back to catheter/tubing in the anterior chest wall. No acute osseous finding. ??No focal airspace disease. Nonspecific bowel gas pattern. ??Cholecystectomy clips Procedure Note Kraig Rizvi MD - 06/16/2023 EXAMINATION: XR SHUNT SERIES CLINICAL HISTORY: recent revision recent revision, new abdominal pain, headache. TECHNIQUE: Multiple AP and lateral views of skull, chest, abdomen. COMPARISON: Radiograph shunt series 06/09/2023 FINDINGS: Right frontal approach POINT OF CARE 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 catheter, with the intracranial portion terminating in the midline the extracranial portion courses along theright side of the neck along the anterior chest wall. On the lateral projection ofthe abdomen, there is a focal discontinuity of the catheter as it enters the abdomen, resulting in a 2.3 cm gap. The intra-abdominal portion of the catheter, courses toward the right lower quadrant terminates in theupper midline abdomen. No discontinuity of the intra-abdominal portion of the catheter. Unchanged back to catheter/tubing in the anterior chest wall. No acute osseous finding. No focal airspace disease. Nonspecific bowel gas pattern. Cholecystectomy clips IMPRESSION Right frontal approach POINT OF CARE 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 catheter with focal discontinuity at thesegment where it enters the abdomen with 2.3 cm gap. Aside from this, theremaining catheter are intact Thank you for letting us participate in the care of this patient. If youare a health care provider and have any questions regarding this report,please contact the number below. For patients who have questions please contactthe health home care physical therapist that requested your imaging first. Electronically signed by: Kraig Rizvi MD, [facility]([phone]), at 06/16/2023 11:51 AM Derek Collin DO IMG DX ORDERABLES * CT Head wo Contrast (Generic) (06/16/2023 10:58 AM EDT) WORKSTATION ID [id number] RAD Anatomical Region Laterality Modality Head Computed Tomogra phy Impressions 06/16/2023 11:11 AM EDT Stable examination with no hydrocephalus or other acute abnormality. Thank you for letting us participate in the care of this patient. ??If you are a health care provider and have any questions regarding this report, please contact the number below. ??For patients who have questions please contact the health home care physical therapist that requested your imaging first. ? Electronically signed by: Eris Hicks MD, [facility] ([phone]), at 06/16/2023 11:11 AM Narrative 06/16/2023 11:11 AM EDT EXAMINATION: CT HEAD WO CONTRAST [...] changes and a partial right temporal craniectomy. Procedure Note Eris Hicks MD - 06/16/2023 EXAMINATION: CT HEAD WO CONTRAST (GENERIC) CLINICAL HISTORY: headache, shunt new headache, recent shunt revision, no focal deficits, for shunt eval TECHNIQUE: CT head performed without intravenous contrast administration. COMPARISON: CT head 06/08/2023 FINDINGS: No acute intracranial hemorrhage, mass, mass effect, hydrocephalus,midline shift, or acute infarction. A right frontal ventriculoperitoneal shuntcatheter is stable in position. Mild linear encephalomalacia along a prior rightparietal shunt tract is again seen. The osseous structures are stable includingbilateral frontal and right parietal gala hole craniotomy changes and a partialright temporal craniectomy. IMPRESSION Stable examination with no hydrocephalus or other acute abnormality. Thank you for letting us participate in the care of this patient. If youare a health care provider and have any questions regarding this report,please contact the number below. For patients who have questions please contactthe health home care physical therapist that requested your imaging first. Derek FREEMAN CT ORDERABLES documented in this encounter Visit Diagnoses Diagnosis Shunt malfunction- Primary Mechanical complication due to other implant and internal device, not elsewhere classified Shunt malfunction, initial encounter ST segment depression 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 Presence of cerebrospinal fluid drainage device documented in this encounter Admitting Diagnoses Diagnosis Shunt malfunction Mechanical complication due to other implant and internal device, not elsewhere classified documented in this encounter Administered Medications Inactive Administered Medications - up to 3 most recent administrations Medication Order MAR Action Action Date Dose Rate Site acetaminophen (Tylenol) tablet 650 mg 650 mg, Oral, EVERY 6 HOURS PRN, Starting on Thu06/16/23 at 1536, Until Thu06/29/23 at 1901, Pain, Headaches, Fever, Maximum dose of acetaminophen is 4,000 mg from all sources in 24 hours. When ordered for pain, acetaminophen should be given even when other ordered pain medications are indicated., Routine Given 06/29/2023 5:29 PM EDT 650 mg Given 06/26/2023 2:00 AM EDT 650 mg Given 06/20/2023 4:35 PM EDT 650 mg acetaminophen (Tylenol) tablet 975 mg 975 mg (rounded from 1,000 mg), Oral, EVERY 6 HOURS SCHEDULED, First dose (after last modification) on Thu06/30/23 at 0000, Until Discontinued, Maximum dose of acetaminophen is 4,000 mg from all sources in 24 hours. When ordered for pain, acetaminophen should be given even when other ordered pain medications are indicated., Routine Given 06/30/2023 12:24 PM EDT 975 mg Given 06/30/2023 5:45 AM EDT 975 mg Given 06/29/2023 11:15 PM EDT 975 mg amoxicillin (Amoxil) capsule 250 mg 250 mg, Oral, ONCE, 1 dose, On Thu06/22/23 at 1730, Monitor patient for 60 minutes after administration., Routine, Indication for (Active or Suspected): Other (See comment) / Test dose Given 06/22/2023 8:05 PM EDT 250 mg ampicillin-sulbactam (Unasyn) 3 g vial attach to sodium chloride 0.9% 100 mL Mini-Bag Plus 3 g, Intravenous, EVERY 6 HOURS, First dose on Thu06/23/23 at 0900, Until Discontinued, Administer over 15 Minutes, Warning Vesicant/Irritant Medication , Indication for (Active or Suspected): CREAM RIPENER/Meningitis New Bag 06/30/2023 3:26 PM EDT 3 g 400 mL/hr New Bag 06/30/2023 8:48 AM EDT 3 g 400 mL/hr New 06/30/2023 3:00 AM EDT 3 g 400 mL/hr ARIPiprazole (Abilify) tablet 10 mg 10 mg, Oral, DAILY, First dose on Thu06/17/23 at 0900, Until Discontinued, Routine Given 06/30/2023 8:55 AM EDT 10 mg Given 06/29/2023 8:24 AM EDT 10 mg Given 06/28/2023 9:04 AM EDT 10 mg bisacodyL (Dulcolax) suppository 10 mg 10 mg, Rectal, DAILY PRN, Starting on Thu06/27/23 at 1401, Until Thu06/30/23 at 1838, Constipation, Routine calcium carbonate (TUMS) chewable tablet 500 mg 500 mg, Oral, 2 TIMES DAILY PRN, Starting on Thu06/26/23 at 0319, Until Thu06/26/23 at 1812, Abdominal cramping, Routine Given 06/26/2023 5:48 PM EDT 500 mg Given 06/26/2023 11:22 AM EDT 500 mg Given 06/26/2023 3:39 AM EDT 500 mg calcium carbonate (TUMS) chewable tablet 500 mg 500 mg, Oral, EVERY 6 HOURS PRN, Starting on Thu06/26/23 at 1815, Until Thu06/30/23 at 1838, Abdominal cramping, Routine ceFAZolin (Ancef) 1 g vial attached to sodium chloride 0.9% 50 mL Mini-Bag Plus 1 g, Intravenous, EVERY 8 HOURS, 3 doses, First dose on Thu06/29/23 at 2200, Last dose on Thu06/30/23 at 1400, Administer over 30 Minutes, Indication for (Active or Suspected): Prophylaxis New 06/30/2023 2:24 PM EDT 1 g 100 mL/hr New 06/30/2023 5:45 AM EDT 1 g 100 mL/hr New 06/29/2023 11:15 PM EDT 1 g 100 mL/hr cefTRIAXone (Rocephin) 2 g vial attach to sodium chloride 0.9% 50 mL Mini-Bag Plus 2 g, Intravenous, EVERY 24 HOURS, First dose on Thu06/17/23 at 1715, Until Discontinued, Administer over 30 Minutes, Indication for (Active or Suspected): GI/Intra-abdominal New Bag 06/21/2023 5:23 PM EDT 2 g 100 mL/hr New Bag 06/20/2023 5:47 PM EDT 2 g 100 mL/hr New Bag 06/19/2023 4:36 PM EDT 2 g 100 mL/hr cefTRIAXone (Rocephin) 2 g vial attach to sodium chloride 0.9% 50 mL Mini-Bag Plus 2 g, Intravenous, EVERY 24 HOURS, First dose on Thu06/21/23 at 2000, Until Discontinued, Administer over 30 Minutes, Indication for (Active or Suspected): CREAM RIPENER/Meningitis New Bag 06/22/2023 9:26 PM EDT 2 g 100 mL/hr New Bag 06/21/2023 8:14 PM EDT 2 g 100 mL/hr clindamycin (Cleocin) 900 mg in dextrose 5% 50 mL infusion 900 mg, Intravenous, ONCE, 1 dose, On Thu06/16/23 at 1636, Administer over 30 Minutes, For procedure, Indication for (Active or Suspected): Prophylaxis 06/16/2023 4:53 PM EDT 900 mg 100 mL/ hr cyclobenzaprine (Flexeril) tablet 10 mg 10 mg, Oral, EVERY 8 HOURS PRN, Starting on Thu06/29/23 at 1902, Until Thu06/30/23 at 1838, Muscle spasms, Routine Given 06/29/2023 7:51 PM EDT 10 mg diphenhydrAMINE (Benadryl) (50 mg/mL) injection 25 mg 25 mg, Intravenous, 2 TIMES DAILY PRN, Starting on Thu06/17/23 at 1613, Until Thu06/30/23 at 1838, Itching, To be administered 30 min prior to vancomycin infusion, Routine Given 06/23/2023 8:25 AM EDT 25 mg Given 06/22/2023 8:29 AM EDT 25 mg Given 06/20/2023 5:53 PM EDT 25 mg diphenhydrAMINE (Benadryl) (50 mg/mL) injection 25 mg 25 mg, Intravenous, EVERY 8 HOURS, 3 doses, First dose on Thu06/29/23 at 2200, Last dose on Thu06/30/23 at 1400, Routine Given 06/30/2023 2:14 PM EDT 25 mg Given 06/30/2023 5:44 AM EDT 25 mg Given 06/29/2023 11:15 PM EDT 25 mg diphenhydrAMINE (Benadryl) (50 mg/mL) injection 50 mg 50 mg, Intravenous, ONCE, 1 dose, On Thu06/16/23 at 1817, Administer 30 minutes prior to vancomycin administration , Routine Given 06/16/2023 8:31 PM EDT 50 mg diphenhydrAMINE (Benadryl) capsule 25 mg 25 mg, Oral, ONCE, 1 dose, On 06/20/23 at 1915, Routine Given 06/20/2023 6:39 PM EDT 25 mg heparin (porcine) (5,000 units/1 mL) subcutaneous injection 5,000 Units 5,000 Units, Subcutaneous, EVERY 12 HOURS SCHEDULED (2 times per day), 20 doses, First dose on Thu06/19/23 at 0900, Last dose on Thu06/29/23 at 2100, Routine Given 06/29/2023 8:24 AM EDT 5,000 Units Given 06/28/2023 8:12 PM EDT 5,000 Units Given 06/28/2023 9:01 AM EDT 5,000 Units hydrOXYzine (Atarax) tablet 25 mg 25 mg, Oral, DAILY, First dose on Thu06/17/23 at 0900, Until Discontinued, Routine Given 06/30/2023 8:48 AM EDT 25 mg Given 06/29/2023 8:23 AM EDT 25 mg Given 06/28/2023 9:01 AM EDT 25 mg iohexoL (Omnipaque) (350 mg/mL) solution 0-200 mL 0-200 mL, Intravenous, ONCE PRN, 1 dose, Starting on Thu06/16/23 at 1404, Until Thu06/16/23 at 1404, Per Protocol, Warning Vesicant/Irritant Medication , Radiology Contrast, Routine Given 06/16/2023 2:04 PM EDT 83 mLs iohexoL (Omnipaque) (350 mg/mL) solution 0-200 mL 0-200 mL, Intravenous, ONCE PRN, 1 dose, Starting on 06/28/23 at 0955, Until 06/28/23 at 0955, Per Protocol, Warning Vesicant/Irritant Medication , Radiology Contrast, Routine Given 06/28/2023 9:55 AM EDT 113 mLs iohexoL (Omnipaque) radiology oral prep (50 mL of oral contrast) 240 mL, Oral, ONCE, 1 dose, On 06/28/23 at 0845, 8 ounce cup = 240 mL of contrast one hour before scan. The patient should not eat food or drink any other liquids during the entire period in which they are drinking the contrast. Mix 1 bottle (50 mL) of Omnipaque 350 with 1 liter (1,000 mL) non-carbonated beverage (preferably water). Close cover and shake vigorously and then refrigerate, if desired. Dispose of any excess preparation in a sink. Properly dispose of container., Routine Given 06/28/2023 8:45 AM EDT 240 mLs iohexoL (Omnipaque) radiology oral prep (50 mL of oral contrast) 240 mL, Oral, ONCE, 1 dose, On 06/28/23 at 0845, 8 ounce cup = 240 mL of contrast 30 minutes before scan. The patient should not eat food or drink any other liquids during the entire period in which they are drinking the contrast. Mix 1 bottle (50 mL) of Omnipaque 350 with 1 liter (1,000 mL) non-carbonated beverage (preferably water). Close cover and shake vigorously and then refrigerate, if desired. Dispose of any excess preparation in a sink. Properly dispose of container., Routine Given 06/28/2023 8:45 AM EDT 240 mLs iohexoL (Omnipaque) radiology oral prep (50 mL of oral contrast) 240 mL, Oral, ONCE, 1 dose, On 06/28/23 at 0900, 8 ounce cup = 240 mL of contrast 15 minutes before scan. The patient should not eat food or drink any other liquids during the entire period in which they are drinking the contrast. Mix 1 bottle (50 mL) of Omnipaque 350 with 1 liter (1,000 mL) non-carbonated beverage (preferably water). Close cover and shake vigorously and then refrigerate, if desired. Dispose of any excess preparation in a sink. Properly dispose of container., Routine Given 06/28/2023 9:00 AM EDT 240 mLs lactulose (Chronulac) (0.67 gram/mL) oral liquid 20 g 20 g, Oral, 2 TIMES DAILY, First dose on Thu06/28/23 at 2100, Until Discontinued, Routine Given 06/28/2023 8:12 PM EDT 20 g levothyroxine (Synthroid) tablet 25 mcg 25 mcg, Oral, DAILY, First dose on Thu06/17/23 at 0900, Until Discontinued, Pt should be NPO for 2 hours before and 1 hour after , Routine Given 06/30/2023 5:45 AM EDT 25 mcg Given 06/29/2023 6:13 AM EDT 25 mcg Given 06/28/2023 5:59 AM EDT 25 mcg lidocaine (Xylocaine) 1% (10 mg/mL) injection 10 mg 10 mg, Subcutaneous, ONCE, 1 dose, On Sandra 06/18/23 at 1545, For use in Interventional Radiology (IR) only for procedure with direct provider supervision and verbal order., Angio/IR (Intra-Procedure), Routine Given 06/18/2023 3:32 PM EDT 10 mg lidocaine (Xylocaine) 1% (10 mg/mL) injection 50 mg 50 mg (5 mL), Subcutaneous, ONCE, 1 dose, On Thu06/16/23 at 1538, Routine Given 06/16/2023 3:38 PM EDT 50 mg magnesium hydroxide (Milk of Magnesia) (80mg/mL) oral liquid 2,400 mg 2,400 mg, Oral, DAILY PRN, Starting on 06/27/23 at 1401, Until Thu06/30/23 at 1838, Constipation, 30 mL regular (400 mg/5 mL) = 10 mL concentrate (2400 mg/10 mL), Routine MEROpenem (Merrem) 2 g sodium chloride 0.9% 200 mL Mini-Bag Plus (2x100 mL bags) 2 g, Intravenous, EVERY 8 HOURS, First dose on Thu06/16/23 at 1815, Until Discontinued, Administer over 1.5 Hours, Total dose of MEROpenem 2 g/200 mL, administered using two 1 g/100 mL bags. Infuse each MEROpenem 1 g/100 mL bag over 90 minutes (66 mL/hr) for total infusion time of 180 minutes. On the APR, document administration of first bag using New Bag (1 of 2) MAR action for dose of 1 g/100 mL. Document second bag using Next Bag (2 of 2) MAR action for another dose of 1 g/100 mL (equalling total of 2 g), Indication for (Active or Suspected): CREAM RIPENER/Meningitis, Restricted Antibiotic: Please indicate the most appropriate choice: Ordered from Emergency Department New Bag (1 of 2) 06/17/2023 12:24 PM EDT 2 g 66 mL/hr New Bag (1 of 2) 06/17/2023 3:51 AM EDT 2 g 66 mL/h r New Bag (1 of 2) 06/16/2023 8:45 PM EDT 2 g 66 mL/h r metoprolol succinate XL (Toprol-XL) tablet 25 mg 25 mg, Oral, DAILY, First dose on Thu06/17/23 at 0900, Until Discontinued, DO NOT CRUSH OR OPEN, Routine Given 06/30/2023 8:47 AM EDT 25 mg Given 06/29/2023 8:23 AM EDT 25 mg Given 06/28/2023 9:00 AM EDT 25 mg ondansetron (pf) (Zofran) (2 mg/mL) injection 4 mg 4 mg, Intravenous, EVERY 8 HOURS PRN, Starting on Thu06/26/23 at 1241, Until Thu06/30/23 at 1838, Nausea Given 06/27/2023 3:34 PM EDT 4 mg Given 06/26/2023 12:54 PM EDT 4 mg pantoprazole EC (Protonix) tablet 40 mg 40 mg, Oral, DAILY, First dose on Thu06/16/23 at 1538, Until Discontinued, DO NOT CRUSH OR OPEN, Routine Given 06/30/2023 8:48 AM EDT 40 mg Given 06/29/2023 8:23 AM EDT 40 mg Given 06/28/2023 9:01 AM EDT 40 mg polyethylene glycoL (Miralax) packet 17 g 17 g, Oral, 2 TIMES DAILY PRN, Starting on 06/27/23 at 1401, Until 06/28/23 at 1807, Constipation, Routine Given 06/27/2023 2:16 PM EDT 17 g polyethylene glycoL (Miralax) packet 17 g 17 g, Oral, 2 TIMES DAILY, First dose (after last modification) on Thu06/28/23 at 2100, Until Discontinued, Routine Given 06/29/2023 8:24 AM EDT 17 g Given 06/28/2023 8:12 PM EDT 17 g scopolamine (Transderm-Scop) 1 mg over 3 days patch 1 patch 1 patch, Transdermal, Administer over 72 Hours, EVERY 72 HOURS, First dose on Thu06/26/23 at 1900, Until Discontinued, Routine Patch Applied 06/26/2023 8:56 PM EDT 1 patch 01- Ear Behind (Left) scopolamine (Transderm-Scop) 1 mg patch Patch Verification Transdermal, 2 TIMES DAILY, First dose on Thu06/27/23 at 0615, Until Discontinued, Verify scopolamine 1 mg patch. senna-docusate (Pericolace) 8.6-50 mg per tablet 2 tablet 2 tablet, Oral, 2 TIMES DAILY, First dose on Thu06/16/23 at 2100, Until Discontinued, Hold for loose stool. , Routine Given 06/29/2023 8:23 AM EDT 2 tablets Given 06/28/2023 8:11 PM EDT 2 tablets Given 06/28/2023 9:01 AM EDT 2 tablets senna-docusate (Pericolace) 8.6-50 mg per tablet 2 tablet 2 tablet, Oral, 2 TIMES DAILY PRN, Starting on Thu06/27/23 at 1401, Until Thu06/30/23 at 1838, Constipation, Routine sertraline (Zoloft) tablet 150 mg 150 mg, Oral, DAILY, First dose (after last modification) on Thu06/18/23 at 0900, Until Discontinued, Routine Given 06/30/2023 8:48 AM EDT 150 mg Given 06/29/2023 8:24 AM EDT 150 mg Given 06/28/2023 9:07 AM EDT 150 mg sodium chloride 0.9% infusion 100 mL/hr, Intravenous, CONTINUOUS, Starting on 06/28/23 at 0815, Until 06/29/23 at 1833 New Bag 06/29/2023 12:05 PM EDT 100 mL/hr 100 mL/hr New Bag 06/29/2023 1:06 AM EDT 100 mL/hr 100 mL/hr Rate/Dose Change 06/28/2023 12:19 PM EDT 100 mL/hr 100 mL /hr sodium phosphate 15 mMol in sodium chloride 0.9% 150 mL infusion 15 mmol, Intravenous, ONCE, 1 dose, On Thu06/18/23 at 0500, Administer over 4 Hours, *10 mMol sodium phosphate contains 13.3 mEq sodium *15 mMol sodium phosphate contains 20 mEq sodium New Bag 06/18/2023 4:35 AM EDT 15 mmol 37.5 mL/hr topiramate (Topamax) tablet 25 mg 25 mg, Oral, 2 TIMES DAILY, First dose on Thu06/16/23 at 2100, Until Discontinued, DO NOT SPLIT, CRUSH OR OPEN, Routine Given 06/30/2023 8:48 AM EDT 25 mg Given 06/29/2023 8:04 PM EDT 25 mg Given 06/29/2023 8:23 AM EDT 25 mg vancomycin (Vancocin) 1 gram in sodium chloride 0.9% 250 mL infusion 1 g, Intravenous, at 125 mL/hr, EVERY 12 HOURS, First dose on Thu06/18/23 at 1800, Until Discontinued, Maximum infusion rate is 1 gram/hour. If flushing of the face, neck, upper body, arms, and/or back occurs decrease infusion rate by 50% to reduce the severity of symptoms. This medication may have an associated drug lab level. Please see MAR for scheduled level. Warning Vesicant/Irritant Medication , Routine, Indication for (Active or Suspected): CREAM RIPENER/Meningitis New Bag 06/20/2023 5:20 AM EDT 1 g 125 mL/hr New Bag 06/19/2023 6:15 PM EDT 1 g 125 mL/hr New Bag 06/19/2023 5:46 AM EDT 1 g 125 mL/hr vancomycin (Vancocin) 1.25 gram in sodium chloride 0.9% 250 mL infusion 1.25 g, Intravenous, at 100 mL/hr, EVERY 18 HOURS, First dose (after last modification) on Thu06/17/23 at 1600, Until Discontinued, NOTE- slow infusion rate due to history of infusion reaction Maximum infusion rate is 500 mg/hour. If flushing of the face, neck, upper body, arms, and/or back occurs decrease infusion rate by 50% to reduce the severity of symptoms. This medication may have an associated drug lab level. Please see MAR for scheduled level. Warning Vesicant/Irritant Medication , Routine, Indication for (Active or Suspected): CREAM RIPENER/Meningitis New Bag 06/17/2023 5:07 PM EDT 1.25 g 100 mL/hr vancomycin (Vancocin) 1.25 gram in sodium chloride 0.9% 250 mL infusion 1.25 g, Intravenous, at 100 mL/hr, ONCE, 1 dose, On Sanrda 06/18/23 at 0630, NOTE- slow infusion rate due to history of infusion reaction Maximum infusion rate is 500 mg/hour. If flushing of the face, neck, upper body, arms, and/or back occurs decrease infusion rate by 50% to reduce the severity of symptoms. This medication may have an associated drug lab level. Please see MAR for scheduled level. Warning Vesicant/Irritant Medication , Routine, Indication for (Active or Suspected): CREAM RIPENER/Meningitis New Bag 06/18/2023 6:49 AM EDT 1.25 g 100 mL/hr vancomycin (Vancocin) 1.25 gram in sodium chloride 0.9% 250 mL infusion 1.25 g, Intravenous, at 200 mL/hr, EVERY 12 HOURS, First dose (after last modification) on [facility] 06/20/23 at 1800, Until Discontinued, Maximum infusion rate is 1 gram/hour. If flushing of the face, neck, upper body, arms, and/or back occurs decrease infusion rate by 50% to reduce the severity of symptoms. This medication may have an associated drug lab level. Please see MAR for scheduled level. Warning Vesicant/Irritant Medication , Routine, Indication for (Active or Suspected): CREAM RIPENER/Meningitis New Bag 06/21/2023 6:03 AM EDT 1.25 g 200 mL/hr New Bag 06/20/2023 6:40 PM EDT 1.25 g 200 mL/hr vancomycin (Vancocin) 1.25 gram in sodium chloride 0.9% 250 mL infusion 1.25 g, Intravenous, at 200 mL/hr, EVERY 12 HOURS, First dose on Lind 06/21/23 at 2030, Until Discontinued, Maximum infusion rate is 1 gram/hour. If flushing of the face, neck, upper body, arms, and/or back occurs decrease infusion rate by 50% to reduce the severity of symptoms. This medication may have an associated drug lab level. Please see MAR for scheduled level. Warning Vesicant/Irritant Medication , Routine, Indication for (Active or Suspected): CREAM RIPENER/Meningitis New Bag 06/22/2023 10:17 PM EDT 1.25 g 200 mL/hr New Bag 06/22/2023 9:15 AM EDT 1.25 g 200 mL/hr New Bag 06/21/2023 8:14 PM EDT 1.25 g 200 mL/hr vancomycin (Vancocin) 1.75 gram in sodium chloride 0.9% 500 mL infusion 1,750 mg, Intravenous, at 125 mL/hr, ONCE, 1 dose, On Thu06/16/23 at 1744, Note infusion rate, patient with history of rash/hives unclear if it is red man syndrome Warning Vesicant/Irritant Medication , Routine, Indication for (Active or Suspected): CREAM RIPENER/Meningitis Given 06/16/2023 10:13 PM EDT 1,750 mg 125 mL/hr documented in this encounter Active and Recently Administered Medications Times are shown in EDT. Scheduled Medication Order 06/28/2023 06/29/2023 06/30/2023 acetaminophen (Tylenol) tablet 975 mg 975 mg (rounded from 1,000 mg), Oral, EVERY 6 HOURS SCHEDULED, First dose (after last modification) on Thu06/30/23 at 0000, Until Discontinued, Maximum dose of acetaminophen is 4,000 mg from all sources in 24 hours. When ordered for pain, acetaminophen should be given even when other ordered pain medications are indicated., Routine 7760 (Given - Provider: Josselyn Diaz RN) 7002 (Given - Provider: Josselyn Diaz RN)1225 (Given - Provider: Deng Fuentes RN) ampicillin-sulbactam (Unasyn) 3 g vial attach to sodium chloride 0.9% 100 mL Mini-Bag Plus 3 g, Intravenous, EVERY 6 HOURS, First dose on Thu06/23/23 at 0900, Until Discontinued, Administer over 15 Minutes, Warning Vesicant/Irritant Medication , Indication for (Active or Suspected): CREAM RIPENER/Meningitis 0455 (New Bag - Provider: Josselyn Diaz RN)0510 (Stopped - Provider: oJsselyn Diaz RN)0905 (New Bag - Provider: Enriqueta Ortega RN)0920 (Stopped - Provider: Enriqueta Ortega RN)1500 (New Bag - Provider: Enriqueta Ortega, RN)1515 (Stopped - Provider: Enriqueta Ortega, RN)2011 (New Bag - Provider: Josselyn Diaz RN)2026 (Stopped - Provider: Josselyn Diaz RN) 025 (New Bag - Provider: Josselyn Diaz RN)0314 (Stopped - Provider: Josselyn Diaz RN)0837 (New Bag - Provider: Rissa Thomas RN)0852 (Stopped - Provider: Rissa Thomas RN)1357 (MAR Hold - Provider: Admin Adt - Reason: Transfer to a Procedural area)1500 (Automatically Held - Provider: Admin Adt)1821 (MAR Unhold - Provider: Admin Adt)2004 (New Bag - Provider: Josselyn Diaz RN)2019 (Stopped - Provider: Gabriel Cordova RN) 030 (New Bag - Provider: Josselyn Diaz RN)031 (Stopped - Provider: Josselyn Diaz RN)0848 (New Bag - Provider: Deng Fuentes, EDWARD)0903 (Stopped - Provider: Deng Fuentes, EDWARD)1526 (New Bag - Provider: Deng Fuentes, EDWARD)1541 (Due: Stopped - Provider: Deng Fuentes, EDWARD) ARIPiprazole (Abilify) tablet 10 mg 10 mg, Oral, DAILY, First dose on Thu06/17/23 at 0900, Until Discontinued, Routine 0904 (Given - Provider: Enriqueta Ortega RN) 0824 (Given - Provider: Rissa Thomas, EDWARD)1357 (MAR Hold - Provider: Admin Adt - Reason: Transfer to a Procedural area)1821 (MAR Unhold - Provider: Admin Adt) 0855 (Given - Provider: Deng Fuentes, EDWARD) ceFAZolin (Ancef) 1 g vial attached to sodium chloride 0.9% 50 mL Mini-Bag Plus (COMPLETED)(Linked Group 1) 1 g, Intravenous, EVERY 8 HOURS, 3 doses, First dose on Thu06/29/23 at 2200, Last dose on Thu06/30/23 at 1400, Administer over 30 Minutes, Indication for (Active or Suspected): Prophylaxis 2315 (New Bag - Provider: Josselyn Diaz RN)2345 (Stopped - Provider: Josselyn Diaz, EDWARD) 0545 (New Bag - Provider: Josselyn Diaz RN)0615 (Stopped - Provider: Josselyn Diaz, EDWARD)1424 (New Bag - Provider: Deng Fuentes, EDWARD)1454 (Stopped - Provider: Deng Fuentes, EDWARD) diphenhydrAMINE (Benadryl) (50 mg/mL) injection 25 mg (COMPLETED)(Linked Group 1) 25 mg, Intravenous, EVERY 8 HOURS, 3 doses, First dose on Thu06/29/23 at 2200, Last dose on Thu06/30/23 at 1400, Routine 2315 (Given - Provider: Josselyn Diaz RN) 0544 (Given - Provider: Josselyn Diaz RN)1414 (Given - Provider: Deng Fuentes, EDWARD) heparin (porcine) (5,000 units/1 mL) subcutaneous injection 5,000 Units (CANCELED) 5,000 Units, Subcutaneous, EVERY 12 HOURS SCHEDULED (2 times per day), 20 doses, First dose on Thu06/19/23 at 0900, Last dose on Thu06/29/23 at 2100, Routine 09 (Given - Provider: Enriqueta Ortega RN)2011 (Given - Provider: Josselyn Diaz RN) 08 (Given - Provider: Rissa Thomas, EDWARD)135 (APR Hold - Provider: Admin Adt - Reason: Transfer to a Procedural area)1820 (APR Unhold - Provider: Admin Adt) hydrOXYzine (Atarax) tablet 25 mg 25 mg, Oral, DAILY, First dose on Thu06/17/23 at 0900, Until Discontinued, Routine 0901 (Given - Provider: Enriqueta Ortega RN) 08 (Given - Provider: Rissa Thomas RN)135 (APR Hold - Provider: Admin Adt - Reason: Transfer to a Procedural area)182 (MAR Unhold - Provider: John Felix) 0848 (Given - Provider: Deng Fuentes RN) iohexoL (Omnipaque) (350 mg/mL) solution 0-50 mL 0-50 mL, Oral, ONCE, 1 dose, On 06/29/23 at 1930, Warning Vesicant/Irritant Medication , Radiology Contrast, Routine 193 (Not Given - Provider: Rissa Thomas RN - Reason: See comment) iohexoL (Omnipaque) radiology oral prep (50 mL of oral contrast) (COMPLETED)(Linked Group 2) 240 mL, Oral, ONCE, 1 dose, On 06/28/23 at 0845, 8 ounce cup = 240 mL of contrast one hour before scan. The patient should not eat food or drink any other liquids during the entire period in which they are drinking the contrast. Mix 1 bottle (50 mL) of Omnipaque 350 with 1 liter (1,000 mL) non-carbonated beverage (preferably water). Close cover and shake vigorously and then refrigerate, if desired. Dispose of any excess preparation in a sink. Properly dispose of container., Routine 08 (Given - Provider: Enriqueta Ortega RN) iohexoL (Omnipaque) radiology oral prep (50 mL of oral contrast) (COMPLETED)(Linked Group 2) 240 mL, Oral, ONCE, 1 dose, On 06/28/23 at 0845, 8 ounce cup = 240 mL of contrast 30 minutes before scan. The patient should not eat food or drink any other liquids during the entire period in which they are drinking the contrast. Mix 1 bottle (50 mL) of Omnipaque 350 with 1 liter (1,000 mL) non-carbonated beverage (preferably water). Close cover and shake vigorously and then refrigerate, if desired. Dispose of any excess preparation in a sink. Properly dispose of container., Routine 844 (Given - Provider: Enriqueta Ortega RN) iohexoL (Omnipaque) radiology oral prep (50 mL of oral contrast) (COMPLETED)(Linked Group 2) 240 mL, Oral, ONCE, 1 dose, On 06/28/23 at 0900, 8 ounce cup = 240 mL of contrast 15 minutes before scan. The patient should not eat food or drink any other liquids during the entire period in which they are drinking the contrast. Mix 1 bottle (50 mL) of Omnipaque 350 with 1 liter (1,000 mL) non-carbonated beverage (preferably water). Close cover and shake vigorously and then refrigerate, if desired. Dispose of any excess preparation in a sink. Properly dispose of container., Routine 0900 (Given - Provider: Enriqueta Ortega RN) lactulose (Chronulac) (0.67 gram/mL) oral liquid 20 g 20 g, Oral, 2 TIMES DAILY, First dose on Thu06/28/23 at 2100, Until Discontinued, Routine 2011 (Given - Provider: Josselyn Diaz RN) 0823 (Not Given - Provider: Rissa Thomsa RN - Reason: Patient/family refused - Comment: several BMs overnight, other bowel meds given.)135 ([facility] Hold - Provider: Admin Adt - Reason: Transfer to a Procedural area)1820 ([facility] Unhold - Provider: Admin Adt)2100 (Not Given - Provider: Josselyn Diaz RN - Reason: Patient/family refused) 0900 (Not Given - Provider: Deng Fuentes RN - Reason: Patient/family refused) levothyroxine (Synthroid) tablet 25 mcg 25 mcg, Oral, DAILY, First dose on Thu06/17/23 at 0900, Until Discontinued, Pt should be NPO for 2 hours before and 1 hour after , Routine 0559 (Given - Provider: Josselyn Diaz RN) 0613 (Given - Provider: Josselyn Diaz RN)135 ([facility] Hold - Provider: Admin Adt - Reason: Transfer to a Procedural area)182 ([facility] Unhold - Provider: Admin Adt) 0545 (Given - Provider: Josselyn Diaz RN) metoprolol succinate XL (Toprol-XL) tablet 25 mg 25 mg, Oral, DAILY, First dose on Thu06/17/23 at 0900, Until Discontinued, DO NOT CRUSH OR OPEN, Routine 899 (Given - Provider: Enriqueta Ortega RN) 0823 (Given - Provider: Rissa Thomas RN)135 ([facility] Hold - Provider: Admin Adt - Reason: Transfer to a Procedural area)182 ([facility] Unhold - Provider: Admin Adt) 0847 (Given - Provider: Deng Fuentes, EDWARD) pantoprazole EC (Protonix) tablet 40 mg 40 mg, Oral, DAILY, First dose on Thu06/16/23 at 1538, Until Discontinued, DO NOT CRUSH OR OPEN, Routine 09 (Given - Provider: Enriqueta Ortega, RN) 0823 (Given - Provider: Rissa Thomas, RN)1357 (MAR Hold - Provider: Admin Adt - Reason: Transfer to a Procedural area)182 (MAR Unhold - Provider: Admin Adt) 0848 (Given - Provider: Deng Fuentes, EDWARD) polyethylene glycoL (Miralax) packet 17 g 17 g, Oral, 2 TIMES DAILY, First dose (after last modification) on Thu06/28/23 at 2100, Until Discontinued, Routine 2011 (Given - Provider: Josselyn Diaz, EDWARD) 0824 (Given - Provider: Rissa Thomas, RN)1357 (MAR Hold - Provider: Admin Adt - Reason: Transfer to a Procedural area)182 (MAR Unhold - Provider: Admin Adt)2099 (Not Given - Provider: Josselyn Diaz RN - Reason: Patient/family refused) 09 (Not Given - Provider: Deng Fuentes RN - Reason: Patient/family refused) scopolamine (Transderm-Scop) 1 mg over 3 days patch 1 patch(Linked Group 3) 1 patch, Transdermal, Administer over 72 Hours, EVERY 72 HOURS, First dose on Thu06/26/23 at 1900, Until Discontinued, Routine 1357 (MAR Hold - Provider: Admin Adt - Reason: Transfer to a Procedural area)182 (MAR Unhold - Provider: Admin Adt)185 (Not Given - Provider: Rissa Thomas RN - Reason: Patient/family refused)190 (Not Given - Provider: Josselyn Diaz RN - Reason: Patient/family refused) scopolamine (Transderm-Scop) 1 mg patch Patch Verification(Linked Group 3) Transdermal, 2 TIMES DAILY, First dose on Thu06/27/23 at 0615, Until Discontinued, Verify scopolamine 1 mg patch. 09 (Patch Not Verified (add comment) - Provider: Enriqueta Ortega RN - Comment: no longer in place)2099 (Not Given - Provider: Josselyn Diaz RN - Reason: Patient/family refused) 09 (Not Given - Provider: Rissa Thomas RN - Reason: Patient/family refused)135 (APR Hold - Provider: Admin Adt - Reason: Transfer to a Procedural area)1820 (MAR Unhold - Provider: Admin Adt)2099 (Not Given - Provider: Josselyn Diaz RN - Reason: Patient/family refused) 0900 (Patch Not Verified (add comment) - Provider: Deng Fuentes RN - Comment: Not on) senna-docusate (Pericolace) 8.6-50 mg per tablet 2 tablet 2 tablet, Oral, 2 TIMES DAILY, First dose on Thu06/16/23 at 2100, Until Discontinued, Hold for loose stool. , Routine 900 (Given - Provider: Enriqueta Ortega RN)2010 (Given - Provider: Josselyn Diaz RN) 08 (Given - Provider: Rissa Thomas RN)135 (APR Hold - Provider: Admin Adt - Reason: Transfer to a Procedural area)1820 ([facility] Unhold - Provider: Admin Adt)2099 (Not Given - Provider: Josselyn Diaz RN - Reason: Patient/family refused) 09 (Not Given - Provider: Deng Fuentes RN - Reason: Patient/family refused) sertraline (Zoloft) tablet 150 mg 150 mg, Oral, DAILY, First dose (after last modification) on Thu06/18/23 at 0900, Until Discontinued, Routine 09 (Given - Provider: Enriqueta Ortega RN) 08 (Given - Provider: Rissa Thomas RN)135 (APR Hold - Provider: Admin Adt - Reason: Transfer to a Procedural area)1820 ([facility] Unhold - Provider: Admin Adt) 0848 (Given - Provider: Deng Fuentes, EDWARD) topiramate (Topamax) tablet 25 mg 25 mg, Oral, 2 TIMES DAILY, First dose on Thu06/16/23 at 2100, Until Discontinued, DO NOT SPLIT, CRUSH OR OPEN, Routine 09 (Given - Provider: Enriqueta Ortega RN)2010 (Given - Provider: Josselyn Diaz RN) 08 (Given - Provider: Rissa Thomas RN)1357 ([facility] Hold - Provider: Admin Adt - Reason: Transfer to a Procedural area)1821 ([facility] Unhold - Provider: Admin Adt)2003 (Given - Provider: Josselny Diaz, EDWARD) 0848 (Given - Provider: Deng Fuentes RN) Continuous Medication Order 06/28/2023 06/29/2023 06/30/2023 sodium chloride 0.9% infusion (CANCELED) 100 mL/hr, Intravenous, CONTINUOUS, Starting on Thu06/28/23 at 0815, Until 06/29/23 at 1833 0737 (New Bag - Provider: Enriqueta Ortega, RN)1219 (Rate/Dose Change - Provider: Enriqueta Ortega RN) 0106 (New Bag - Provider: Josselyn Diaz RN)1205 (New Bag - Provider: Rissa Thomas RN)1357 ([facility] Hold - Provider: Admin Adt - Reason: Transfer to a Procedural area)182 ([facility] Unhold - Provider: Admin Adt)1833 (Stopped - Provider: Rissa Thomas RN) PRN Medication Order 06/28/2023 06/29/2023 06/30/2023 acetaminophen (Tylenol) tablet 650 mg (CANCELED) 650 mg, Oral, EVERY 6 HOURS PRN, Starting on Thu06/16/23 at 1536, Until 06/29/23 at 1901, Pain, Headaches, Fever, Maximum dose of acetaminophen is 4,000 mg from all sources in 24 hours. When ordered for pain, acetaminophen should be given even when other ordered pain medications are indicated., Routine 1357 ([facility] Hold - Provider: Admin Adt - Reason: Transfer to a Procedural area)1727 ([facility] Unhold - Provider: Liyah Figueroa, EDWARD)1729 (Given - Provider: Liyah Figueroa RN) bisacodyL (Dulcolax) suppository 10 mg 10 mg, Rectal, DAILY PRN, Starting on 06/27/23 at 1401, Until Thu06/30/23 at 1838, Constipation, Routine 1357 ([facility] Hold - Provider: Admin Adt - Reason: Transfer to a Procedural area)1821 ([facility] Unhold - Provider: Admin Adt) BUpivacaine-EPINEPHrine (Marcaine-epiNEPHrine) 0.25 %-1:200,000 injection (CANCELED) PRN, Starting on Thu06/29/23 at 1440, Until Thu06/30/23 at 1838, Intra-Operative (Intra-Procedure), Routine 1440 (Given - Provider: Rhoda Jimenez MD) calcium carbonate (TUMS) chewable tablet 500 mg 500 mg, Oral, EVERY 6 HOURS PRN, Starting on Thu06/26/23 at 1815, Until Thu06/30/23 at 1838, Abdominal cramping, Routine 1357 ([facility] Hold - Provider: Admin Adt - Reason: Transfer to a Procedural area)182 ([facility] Unhold - Provider: Admin Adt) cyclobenzaprine (Flexeril) tablet 10 mg 10 mg, Oral, EVERY 8 HOURS PRN, Starting on Thu06/29/23 at 1902, Until Thu06/30/23 at 1838, Muscle spasms, Routine 195 (Given - Provider: Josselyn Diaz RN) diphenhydrAMINE (Benadryl) (50 mg/mL) injection 25 mg 25 mg, Intravenous, 2 TIMES DAILY PRN, Starting on Thu06/17/23 at 1613, Until Thu06/30/23 at 1838, Itching, To be administered 30 min prior to vancomycin infusion, Routine 1357 ([facility] Hold - Provider: Admin Adt - Reason: Transfer to a Procedural area)182 ([facility] Unhold - Provider: Admin Adt) gelatin adsorbable 12-7 mm sponge (CANCELED) PRN, Starting on Thu06/29/23 at 1445, Until Thu06/30/23 at 1838, Intra-Operative (Intra-Procedure) 1445 (Given - Provider: Rhoda Jimenez MD - Comment: Gelfoam soaked in 5,000 units of thrombin. Used PRN throughout case) iohexoL (Omnipaque) (350 mg/mL) solution 0-200 mL (COMPLETED) 0-200 mL, Intravenous, ONCE PRN, 1 dose, Starting on 06/28/23 at 0955, Until 06/28/23 at 0955, Per Protocol, Warning Vesicant/Irritant Medication , Radiology Contrast, Routine 0955 (Given - Provider: Grace Molina) magnesium hydroxide (Milk of Magnesia) (80mg/mL) oral liquid 2,400 mg 2,400 mg, Oral, DAILY PRN, Starting on 06/27/23 at 1401, Until Thu06/30/23 at 1838, Constipation, 30 mL regular (400 mg/5 mL) = 10 mL concentrate (2400 mg/10 mL), Routine 1357 ([facility] Hold - Provider: Admin Adt - Reason: Transfer to a Procedural area)182 ([facility] Unhold - Provider: Admin Adt) ondansetron (pf) (Zofran) (2 mg/mL) injection 4 mg 4 mg, Intravenous, EVERY 8 HOURS PRN, Starting on Thu06/26/23 at 1241, Until Thu06/30/23 at 1838, Nausea 1357 ([facility] Hold - Provider: Admin Adt - Reason: Transfer to a Procedural area)182 ([facility] Unhold - Provider: Admin Adt) senna-docusate (Pericolace) 8.6-50 mg per tablet 2 tablet 2 tablet, Oral, 2 TIMES DAILY PRN, Starting on 06/27/23 at 1401, Until Thu06/30/23 at 1838, Constipation, Routine 1357 ([facility] Hold - Provider: Admin Adt - Reason: Transfer to a Procedural area)182 ([facility] Unhold - Provider: Admin Adt) thrombin (bovine) (Thrombin-Jmi) solution (CANCELED) PRN, Starting on Thu06/29/23 at 1445, Until Thu06/30/23 at 1838, Intra-Operative (Intra-Procedure) 1445 (Given - Provider: Rhoda Jimenez MD - Comment: Gelfoam soaked in 5,000 units of thrombin. Used PRN throughout case) Linked Groups Order Group 1: ceFAZolin (Ancef) 1 g vial attached to sodium chloride 0.9% 50 mL Mini-Bag Plus (COMPLETED)Jump to med 1 g, Intravenous, EVERY 8 HOURS, 3 doses, First dose on Thu06/29/23 at 2200, Last dose on Thu06/30/23 at 1400, Administer over 30 Minutes, Indication for (Active or Suspected): Prophylaxis And diphenhydrAMINE (Benadryl) (50 mg/mL) injection 25 mg (COMPLETED)Jump to med 25 mg, Intravenous, EVERY 8 HOURS, 3 doses, First dose on Thu06/29/23 at 2200, Last dose on Thu06/30/23 at 1400, Routine Group 2: iohexoL (Omnipaque) radiology oral prep (50 mL of oral contrast) (COMPLETED)Jump to med 240 mL, Oral, ONCE, 1 dose, On 06/28/23 at 0845, 8 ounce cup = 240 mL of contrast one hour before scan. The patient should not eat food or drink any other liquids during the entire period in which they are drinking the contrast. Mix 1 bottle (50 mL) of Omnipaque 350 with 1 liter (1,000 mL) non-carbonated beverage (preferably water). Close cover and shake vigorously and then refrigerate, if desired. Dispose of any excess preparation in a sink. Properly dispose of container., Routine Followed by iohexoL (Omnipaque) radiology oral prep (50 mL of oral contrast) (COMPLETED)Jump to med 240 mL, Oral, ONCE, 1 dose, On 06/28/23 at 0845, 8 ounce cup = 240 mL of contrast 30 minutes before scan. The patient should not eat food or drink any other liquids during the entire period in which they are drinking the contrast. Mix 1 bottle (50 mL) of Omnipaque 350 with 1 liter (1,000 mL) non-carbonated beverage (preferably water). Close cover and shake vigorously and then refrigerate, if desired. Dispose of any excess preparation in a sink. Properly dispose of container., Routine Followed by iohexoL (Omnipaque) radiology oral prep (50 mL of oral contrast) (COMPLETED)Jump to med 240 mL, Oral, ONCE, 1 dose, On 06/28/23 at 0900, 8 ounce cup = 240 mL of contrast 15 minutes before scan. The patient should not eat food or drink any other liquids during the entire period in which they are drinking the contrast. Mix 1 bottle (50 mL) of Omnipaque 350 with 1 liter (1,000 mL) non-carbonated beverage (preferably water). Close cover and shake vigorously and then refrigerate, if desired. Dispose of any excess preparation in a sink. Properly dispose of container., Routine Group 3: scopolamine (Transderm-Scop) 1 mg over 3 days patch 1 patchJump to med 1 patch, Transdermal, Administer over 72 Hours, EVERY 72 HOURS, First dose on Thu06/26/23 at 1900, Until Discontinued, Routine And scopolamine (Transderm-Scop) 1 mg patch Patch VerificationJump to med Transdermal, 2 TIMES DAILY, First dose on 06/27/23 at 0615, Until Discontinued, Verify scopolamine 1 mg patch. documented in this encounter Care Teams Engineering Group Leader Relationship Specialty Start Date End Date Peter Lebron PA [address] [place] [address] PCP - General Internal Medicine 08/21/22 documented as of this encounter
--- OUTSIDE RECORDS SUMMARY | 2024-02-29 15:44 | XMS_ITS | Encounter Summary ---
[facility] [place] [address] Care Team Providers Care President [employer] Name Role Phone Peter Lebron Primary Care Provider Reason for Visit * Auth/Cert (Routine) Specialty Diagnoses / Procedures Referred By Contac t Referred To Contact Diagnoses Shunt malfunction Rhoda Jimenez MD [facility] [address] [facility] Referral ID Status Reason Start Date Expiration Date Visits Re quested Visits Authorized [id number] 1 1 Encounter Details Date Type Department Care Team (Late st Contact Info) Description 06/29/2023 1:57 PM EDT Anesthesia Event [facility] [place] [address] David Kunz MD [facility] [place] [address] Rhona Monsivais CRNA [facility] [place] [address] Anesthesia Record Procedure Summary Procedure Name Responsible Anesthesiologist Anesthesia Start Time Anesthesia Stop Time REVISION OR REPLACEMENT CSF SHUNT (WRVU 11.43) (Right) David Kunz MD 06/29/23 1357 06/29/23 1651 Events Date Time Event Comment 06/29/2023 1357 AN Verify 1357 Start 1357 An Start Data 1408 An Induction 1411 An Intubation 1411 Anesthesia Ready 1421 1434 Procedure Start 1459 Break/Relief In I assumed ca re for Break Relief before which we: 1. Identified the patient 2. Identified the responsible provider(s) 3. Reviewed the pertinent medical history 4. Discussed the surgical plan and course 5. Reviewed intra-op anesthesia management and issues during anesthesia 6. Set expectations for the relief (and/or post-procedure) period 7. Allowed opportunity for questions and acknowledgement of understanding Bell Jerome, PIA 1520 Break/Relief Out 1638 Extubation/LMA Out 1641 an stop data 1651 Recovery or ICU Handoff Candi ent care was transferred to the destination unit staff after review of the patient's medical history, current anesthetic/surgical status and plan, according to the Provider Handoff Checklist. 1651 Stop Meds Name Total fentaNYL 100 mcg IV Lidocaine 100 mg Propofol 470 mg Rocuronium 50 mg Ondansetron 4 mg Dexamethasone 8 mg ceFAZolin 2 g propofol INF 504.16 mg sugammadex 180 mg dexmedeTOMIDine 24 mcg lactated ringers 600 mL * Agents Name O2 Air Sevoflurane (et) * Blood No blood administrations on file. [...] quadrant; non-laparascopic puncture; Aspiration drainage W/ MD Esther Gutierres; 09/24/23; 0330 06/18/23 1533 by Trevor Sandoval RN 09/24/23 0330 by Ellie Riddle RN Incision 06/20/23; 1416; Righ t, upper; abdomen; 09/24/23; 0330 06/20/23 1416 by Maricel Feliciano RN 09/24/23 0330 by Ellie Riddle RN PIV 06/24/23; 1610; 20 g auge; cephalic vein (lateral side of arm), left; Linsey Rondon RN; distraction; 1; 06/30/23; 1531 06/24/23 1610 by Linsey Lynn RN 06/30/23 1531 by Deng Fuentes RN ETT Mask Ventilation: Ad junct (2); ETT Type: Cuffed, Oral; ETT Size: 7.5 mm; Mac Blade: 4; Notes: Asleep, Pre-O2, Stylette; Attempts: 1; Laryngoscopy Grade: 1; ETT Placement Verified By: Auscultation, Capnometry, Visual; Secured at Teeth: 23 cm; Inserted by: Byron PALACIO; Removal Date: 06/29/23; Removal Time: 1638 06/29/23 1411 by Rissa Matthews, PIA 06/29/23 1638 by Rissa Matthews CRNA Incision 06/29/23; 1435; Righ t; head; 09/24/23; 0330 06/29/23 1435 by Aria Riddle RN 09/24/23 0330 by Ellie Riddle RN Incision 06/29/23; 1440; Righ t; chest; 09/24/23; 0330 06/29/23 1440 by Aria Riddle RN 09/24/23 0330 by Ellie Riddle RN Incision 06/29/23; 1450; Righ t; chest; 09/24/23; 0330 06/29/23 1450 by Aria Riddle RN 09/24/23 0330 by Ellie Riddle RN documented in this encounter Social History Tobacco Use Types Packs/Day Years Used Date Smoking Tobacco: Never Smokeless Tobacco: Never Alcohol Use Standard Drinks/Week Comments No 0 (1 standard drink = 0.6 oz pur e alcohol) [facility] Utilities Answer Date Recorded In the past 12 months has inDegree, gas, oil, or water company threatened to [...] slept in a fci (including now)? No 06/18/2023 DH IPV Inpatient [...] OR Notes * Anesthesia Postprocedure Evaluation - David Kunz MD - 06/29/2023 5:11 PM EDT Department of Anesthesiology Post-procedure Note Patient: Chapin Costa Procedure Summary Date: 06/29/23 Room / Location: [facility] 2 / [facility] Anesthesia Start: 1357 Anesthesia Stop: 165 Procedure: REVISION OR REPLACEMENT CSF SHUNT (WRVU 11.43) (Right) Diagnosis: (hydrocephalus) Surgeons: Rhoda Jimenez MD Responsible Provider: David Kunz MD Anesthesia Type: general ASA Status: 3 All Anesthesia Providers: Anesthesiologist: Taco Wood MD; David Kunz MD POST TENSIONING IRONWORKER: Rissa Matthews CRNA Vitals Value Taken Time BP 123/92 06/29/23 1745 Temp 36.5 ??C (97.7 ??F) 06/29/23 1745 Pulse 71 06/29/23 1752 Resp 17 06/29/23 1751 SpO2 94 % 06/29/23 1752 Pain Level 8 06/29/23 1729 Vitals shown include unfiled device data. Patient Location: PACU/[facility] Level of Consciousness: Conscious but Sleepy Pain Management: Satisfactory Analgesia PONV: None Cardiovascular Status: Hemodynamically Stable and At Baseline Respiratory Status: Supplemental O2 (NC or FM) and Stable Respiratory Status Postoperative Fluid Status: Intravascular EUvolemia Possible Anesthetic Complications: NONE apparent at time of evaluation Final Primary Anesthesia Type: General (The anesthetic type performed was the same as planned.) Comments: * Anesthesia Preprocedure Evaluation - Taco Wood MD - 06/29/2023 1:34 PM EDT Pre-Anesthesia Evaluation for: Chapin Costa a 52 y.o. male. 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 Hyperlipidemia Hypertension Memory disorder Seizures Syncope and collapse Vision abnormalities related to hydrocephalus Past Surgical History: Procedure Laterality Date CARPAL TUNNEL RELEASE Right CHOLECYSTECTOMY, LAPAROSCOPIC IR ALL DRAINAGE PROCEDURES 06/18/2023 IR All Drainage Procedures Bentley Arceo MD [facility] INTERVENTIONL RAD PRO ALVEOLOPLASTY W EXTRACTIONS, 4 OR MORE TEETH, PER QUADRANT N/A 10/18/2020 ALVEOPLASTY,IN CONJUNCTION WITH EXTRACTIONS,PER QUADRANT,ENT (WRVU 4.06) performed by Shan Rivero MD at [facility] OSC PRO EXTRACTION, ERUPTED TOOTH OR EXPOSED ROOT N/A 10/18/2020 EXTRACTION, ERUPTED TOOTH OR EXPOSED ROOT (WRVU 0.62) performed by Shan Rivero MD at [facility] OSC PRO IMPACT TOOTH REM BONY W/COMP N/A 10/18/2020 SURGICAL EXTRACTIONS, REMOVAL OF IMPACTED TOOTH, COMPLETELY BONY WITH UNUSUAL SURGICAL COMPLICATIONS (WRVU 2.91) performed by Shan Rivero MD at [facility] OSC PRO IMPACT TOOTH REMOV COMP BONY N/A 10/18/2020 SURGICAL EXTRACTIONS, REMOVAL OF IMPACTED TOOTH, COMPLETELY BONY (WRVU 1.93) performed by Shan Rivero MD at [facility] OSC PRO REMOVAL ERUPTED TOOTH WITH ELEVATION OF MUCOPERIOSTEAL FLAP Bilateral 10/18/2020 SURGICAL EXTRACTIONS REQUIRING ELEVATION OF MUCOPERIOSTEAL FLAP AND REMOVAL OF BONE OR SECTION OF TOOTH (WRVU 1.09) performed by Shan Rivero MD at [facility] OSC PRO REMOVAL, COMPLETE CSF SHUNT, W/O REPLACE Right 06/20/2023 @REMOVAL OF COMPLETE CSF SHUNT, W/O REPLACEMENT (WRVU 7.38) [facility]/REVISION, CSF SHUNT Right 06/09/2023 REVISION OR REPLACEMENT CSF SHUNT (WRVU 11.43) performed by Rhoda Jimenez MD at [facility] MAIN OR PRO UNLISTED PROCEDURE NERVOUS SYSTEM Right 05/24/2022 EXPLORATION VENTRICULO-PERITONEAL SHUNT (WRVU 25.48) performed by Rhoda Jimenez MD at [facility] MAIN OR SHOULDER SURGERY ULNAR TUNNEL RELEASE Right VENTRICULOPERITONEAL SHUNT Multiple revisions - ~46 prior revisions Social History Tobacco Use Smoking status: Never Smokeless tobacco: Never Substance Use Topics Alcohol use: No Social History Substance and Sexual Activity Drug Use No Allergies Allergen Reactions Latex Other reaction(s): hives [...] alleviate the reaction/allergy. Vancomycin Analogues Vancomycin Hcl Medications: MAR and/or home medications have been reviewed. Physical Exam: Preprocedure Vitals Current as of 06/29/23 1334 BP: 126/92 Pulse: 60 Resp: 13 SpO2: 95 Temp: 36.2 ??C (97.1 ??F) Height: 167.6 cm (5' 6) (06/24/23) Weight: 88.3 kg (194 lb 10.7 oz) (06/24/23) BMI: 31.42 IBW: 63.8 kg (140 lb 9.2 oz) Last edited 06/29/23 1203 by Currently displaying vitals information from multiple entries within 180 minutes of most recent vitals. Airway Assessment: Mallampati: II TM distance: >3 FB Neck ROM: full Cardiovascular Assessment: Rhythm: regular Rate: normal Pulmonary Assessment: unlabored breathing Dental Assessment: (+) edentulous Misc Assessment: Patient is wearing No contact(s). IV access: Peripheral line Last Filed Perioperative Cognitive Screening None Anesthesia Plan: ASA 3 general, with a(n) intravenous induction Region - Other Informed Consent: Anesthetic plan and risks discussed with patient. Attending NOTE Brief HPI: 52 y.o. 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 Hyperlipidemia Hypertension Memory disorder Seizures Syncope and collapse Vision abnormalities related to hydrocephalus BP Readings from Last 3 Encounters: 06/29/23 (!) 126/92 06/10/23 121/78 10/13/22 133/83 EKG: Normal sinus rhythm Nonspecific ST and T wave abnormality Abnormal ECG When compared with ECG of 23-MAR-2019 16:17, Nonspecific T wave abnormality, worse in Inferior leads Nonspecific T wave abnormality now evident in Anterolateral leads QT has shortened Confirmed by MD Juna, Fela ([id number]) on 06/22/2023 ECHO: none LABS: Lab Results Component Value Date HGB 17.4 (H) 06/29/2023 PLATELET 284 06/29/2023 INR 1.2 06/16/2023 NA 140 06/29/2023 K 3.9 06/29/2023 CREATININE 1.36 06/29/2023 Type and Screen: Lab Results Component Value Date ABORH A POSITIVE 06/16/2023 Past anesthetic problems: denies Previous airway notes (on eDH): Mask Ventilation: Adjunct (2); ETT Type: Cuffed, Oral; ETT Size: 7.5 mm; Mac Blade: 4; Notes: Asleep, Pre-O2, Stylette; Attempts: 1; Laryngoscopy Grade: 1; ETT Placement Verified By: Auscultation, Capnometry, Visual; Secured at Teeth: 24 cm; Inserted by: Byron PALACIO; Removal Date: 06/20/23; Removal Time: 1437 NPO status: Reviewed and appropriate Anesthetic Plan: GETA Monitoring: Standard ASA monitors Anesthesia Screening documented in this encounter Plan of Treatment Not on file documented as of this encounter Visit Diagnoses Not on filedocumented in this encounter Administered Medications Inactive Administered Medications - up to 3 most recent administrations Medication Order MAR Action Action Date Dose Rate Site ceFAZolin (Ancef) (100 mg/mL) injection solution Intravenous, PRN, Starting on Thu06/29/23 at 1421, Until Thu06/29/23 at 1654, Anesthesia Intra-op, Routine Given 06/29/2023 2:21 PM EDT 2 g dexAMETHasone (Decadron) injection Intravenous, PRN, Starting on Thu06/29/23 at 1426, Until Thu06/29/23 at 1654, Anesthesia Intra-op, Routine Given 06/29/2023 2:26 PM EDT 8 mg dexmedeTOMIDine (Precedex) (4 mcg/mL) bolus injection (Anesthsia) Intravenous, PRN, Starting on Thu06/29/23 at 1549, Until Thu06/29/23 at 1654, Anesthesia Intra-op, Routine Given 06/29/2023 4:34 PM EDT 4 mcg Given 06/29/2023 4:24 PM EDT 4 mcg Given 06/29/2023 4:18 PM EDT 4 mcg fentaNYL (pf) (50 mcg/mL) multi-dose injection Intravenous, PRN, Starting on Thu06/29/23 at 1409, Until Thu06/29/23 at 1655, Anesthesia Intra-op, Routine Given 06/29/2023 3:06 PM EDT 25 mcg Given 06/29/2023 2:47 PM EDT 25 mcg Given 06/29/2023 2:41 PM EDT 25 mcg lactated ringers infusion Intravenous, CONTINUOUS PRN, Starting on Thu06/29/23 at 1359, Until Thu06/29/23 at 1654, Anesthesia Intra-op New Bag 06/29/2023 1:59 PM EDT lidocaine (pf) (Xylocaine) (20 mg/mL) 2% injection syringe Intravenous, PRN, Starting on Thu06/29/23 at 1408, Until Thu06/29/23 at 1655, Anesthesia Intra-op, Routine Given 06/29/2023 2:08 PM EDT 100 mg ondansetron (pf) (Zofran) (2 mg/mL) injection Intravenous, PRN, Starting on Thu06/29/23 at 1519, Until Thu06/29/23 at 1654, Anesthesia Intra-op, Routine Given 06/29/2023 3:19 PM EDT 4 mg propofoL (Diprivan) (10 mg/mL) infusion Intravenous, CONTINUOUS PRN, Starting on Thu06/29/23 at 1413, Until Thu06/29/23 at 1654, Anesthesia Intra-op, Routine Rate/Dose Change 06/29/2023 4:24 PM EDT 30 mcg/kg/min 13.248 mL/hr New Bag 06/29/2023 2:13 PM EDT 50 mcg/kg/min 22.08 mL/h r propofoL (Diprivan) 10 mg/mL bolus injection (Anesthesia) Intravenous, PRN, Starting on Thu06/29/23 at 1408, Until Thu06/29/23 at 1655, Anesthesia Intra-op Given 06/29/2023 4:34 PM EDT 50 mg Given 06/29/2023 4:24 PM EDT 20 mg Given 06/29/2023 4:18 PM EDT 20 mg rocuronium (Zemuron) (10 mg/mL) multi-dose injection Intravenous, PRN, Starting on Thu06/29/23 at 1409, Until Thu06/29/23 at 1655, Anesthesia Intra-op, Routine Given 06/29/2023 2:09 PM EDT 50 mg sugammadex (Bridion) 100 mg/mL injection Intravenous, PRN, Starting on Thu06/29/23 at 1547, Until Thu06/29/23 at 1654, Anesthesia Intra-op, Routine Given 06/29/2023 3:47 PM EDT 180 mg documented in this encounter Care Teams President Mortgage [employer] Relationship Specialty Start Date End Date Peter Lebron PA [address] [place] [address] PCP - General Internal Medicine 08/21/22 documented as of this encounter
--- OUTSIDE RECORDS SUMMARY | 2024-02-29 15:45 | XMS_ITS | Encounter Summary ---
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 Role Phone Peter Lebron Primary Care Provider Reason for Visit * Reason Comments Post-op Problem Abdominal Pain * Auth/Cert (Routine) Specialty Diagnoses / Procedures Referred By Contnu t Referred To Contact Diagnoses Shunt malfunction Rhoda Jimenez MD [facility] [place] [address] [place] [address] [facility] Referral ID Status Reason Start Date Expiration Date Visits Re quested Visits Authorized [id number] 1 1 Encounter Details Date Type Department Care Team (Late st Contact Info) Description 06/29/2023 1:30 PM EDT - 06/29/2023 4:28 PM EDT [facility] [place] [address] Rhoda Jimenez MD [facility] [place] [address] [place] [address] REVISION OR REPLACEMENT CSF SHUNT (WRVU 11.43) Social History Tobacco Use Types Packs/Day Years Used Date Smoking Tobacco: Never Smokeless Tobacco: Never Alcohol Use Standard Drinks/Week Comments No 0 (1 standard drink = 0.6 oz pur e alcohol) [facility] Utilities Answer Date Recorded In the past [...] slept in a long-term (including now)? No 06/18/2023 DH IPV Inpatient Questions Answer Date Recorded Does Anyone Try to Keep You From Having Contact with Others or Doing Things Outside Your Home? no 06/24/2023 Feels Threatened by Someone no 050 02/2023 Feels Unsafe at Home or Work/School no 06/24/2023 Physical Signs of Abuse Present no 06/24/2023 Sex and Gender Information Value Date Recorded Sex Assigned at Male 10/11/2020 1:38 PM EDT Gender Identity Male 01/18/2020 8:12 PM EST Sexual Orientation Straight 10/11/2020 1: 38 PM EDT documented as of this encounter Last Filed Vital Signs Vital Sign Reading Time Taken Comments Blood Pressure 126/92 06/29/2023 12:03 PM EDT Pulse 60 06/29/2023 12:03 PM EDT Temperature 36.2 ??C (97.1 ??F) 06/29/2023 1 2:02 PM EDT Respiratory Rate 13 06/29/2023 12:0 3 PM EDT Oxygen Saturation 95% 06/29/2023 12: 03 PM EDT Inhaled Oxygen Concentration - - [...] Hydrocephalus Seizures Cervicalgia Headache Persistent headaches S/P MEDICAL ASSISTANT PRN shunt History of Presentation: Per review of [...] On 06/16/23, Chapin Costa was admitted to [facility] for treatment of abdominal fluid collections and distal shunt catheter reimplantation. On 06/17, IR aspirated and collected cultures of the superficial abdominal fluid collection. On 06/20/23, general surgery obtained deep peritoneal fluid collection cultures during operation to remove the distal portion of Mr. Costa's intra-abdominal MEDICAL ASSISTANT PRN shuntcatheter. Abdominal cultures eventually grew E. faecalis for which antibiotics were narrowed by infectious diease from vancomycin + ceftriaxone to ampicillin sulbactam on 06/23/23. CSF cultures showedno growth, result finalized 06/27/23. Mr. Costa developed decreased appetite, abdominal distention, nausea, one episode of vomiting, found to have partial SBO on 06/27 which resolved by 06/28. 06/28 Mr. Costa underwent surgery for removal of externalized MEDICAL ASSISTANT PRN shunt catheter and replacement with a new [...] RUE 5/5 LUE 5/5 RLE 5/5 LLE 5/ Abdominal incision CDI with dermabond/absorbable suture, belly [...] who have questions please contact the health adult caregiver that requested your imaging first. Electronically signed by: Emerita Bernstein MD, [facility] ([phone]), at 06/30/2023 9:07 AM XR Chest One [...] who have questions please contact the health adult caregiver that requested your imaging first. Electronically signed by: Chapin Lee MD, [facility] ([phone]), at 06/30/2023 8:41 AM SCAN DOC: TELEMETRY [...] who have questions please contact the health adult caregiver that requested your imaging first. Electronically signed by: Kandi Duarte MD, [facility] ([phone]), at 06/28/2023 10:35 AM XR Abdomen Flat [...] who have questions please contact the health adult caregiver that requested your imaging first. Electronically signed by: Kandi Duarte MD, [facility] ([phone]), at 06/27/2023 8:45 PM XR Abdomen 1 view (Generic) Result Date: 06/27/2023 EXAMINATION: XR ABDOMEN 1 VIEW (GENERIC) CLINICAL HISTORY: Please obtain upright. Assess for intra-abdominal pathology with recent intra-abdominal infection and new emesis/bloating. TECHNIQUE: AP abdominal radiograph (2 images) COMPARISON: CT abdomen pelvis 06/16/2023 FINDINGS: The lower abdomen andpelvis are excluded from the [id number]-lj-qilf. Imaged bowel loops are nondilated. No free [...] who have questions please contact the health adult caregiver that requested your imaging first. Electronically signed by: Kandi Duarte MD, [facility] ([phone]), at 06/27/2023 7:36 PM SCAN DOC: TELEMETRY [...] who have questions please contact the health adult caregiver that requested your imaging first. Shunt Series Result Date: 06/16/2023 EXAMINATION: XR SHUNT SERIES CLINICAL HISTORY: recent revision recent revision, new abdominal pain,headache. TECHNIQUE: Multiple AP and lateral views of skull, chest, abdomen. COMPARISON: Radiographshunt series 06/09/2023 FINDINGS: Right frontal approach MEDICAL ASSISTANT PRN shunt catheter, with the intracranial portion terminating [...] gas pattern. Cholecystectomy clips Right frontal approach MEDICAL ASSISTANT PRN shunt catheter with focal discontinuity at the [...] who have questions please contact the health adult caregiver that requested your imaging first. Electronically signed by: Kraig Rizvi MD, [facility] ([phone]), at 06/16/2023 11:[address] Head wo [...] who have questions please contact the health adult caregiver that requested your imaging first. Shunt [...] who have questions please contact the health adult caregiver that requested your imaging first. DOC: TELEMETRY STRIPS Result Date: 06/09/2023 Ordered by an unspecified provider. Request For 2nd Read CT Abdomen & Pelvis Result Date: 06/09/2023 EXAMINATION: REQUEST FOR 2ND READ CT ABDOMEN AND PELVIS CLINICAL HISTORY: abdominal pain; Sending Institution [facility]; Date of exam [id number]; I believe [...] present in the left omentum. Abdominal wall: MEDICAL ASSISTANT PRN shunt is fractured in the right upper abdominalwall, (series 4 image 94). MEDICAL ASSISTANT PRN shunt catheter enters the peritoneal space through the right rectus abdominal muscle. Bilateral small fat-containing inguinal hernias. Reproductive organs: Normal. Osseous structures: No suspicious lesions. Mild degenerative changes in the lumbar spine. 1. Fractured MEDICAL ASSISTANT PRN shunt catheter in the subcutaneous tissues of [...] who have questions please contact the health adult caregiver that requested your imaging first. Electronically signed by: Kierra Newsome MD, [facility] ([phone]), at 06/09/2023 7:[address] Head wo [...] patients who have questions please contactthe health adult caregiver that requested your imaging first. Shunt [...] who have questions please contact the health adult caregiver that requested your imaging first. Electronically signed by: Santana Jean-Baptiste MD, [facility] [place] ([phone]), at 06/08/2023 6:47 PM Film Library- Storage [...] Provider Department Dept Phone 07/09/2023 9:[address] [facility] [address] Scan at [facility] Arrive at: 3Z RADIOLOGY [phone] 07/09/2023 10:40 AM Cl Atkins PA Neurosurgery at [facility] Arrive at: Water Taxi Operator Area 3C [phone] Please dispose of unused excess opioids before your appointment or bring them with you to the appointment and we will help you dispose of them correctly. 07/15/2023 2:30 PM Valdo Awan MD Infectious Disease at [facility] Arrive at: Water Taxi [employer] Area 5C [phone] Future Orders Complete By Expires Referral to Home Health [REF34 Custom] As directed Process Instructions: If no progress note charted, please enter Clinical details in comments. Scheduling Instructions: Comments: Please evaluate Chapin Costa for admission to Home Health. 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 HOME HEALTH CARE AGENCY: [facility] [address] [facility] [address] PHONE: [phone] FAX: [phone] Start of care: within 24 to 48 [...] obtained from this patient's PCP: MARVA Gordon [address] / [facility] [address] All VNA agencies which cover the area [...] Vancomycin Hcl Commonly used phone numbers Neuro-oncology [phone] Radiation oncology [phone] Endocrinology [phone] Infectious disease [phone] Neurology [phone] Hematology/Oncology [phone] Plastic Surgery [phone] Trauma/General Surgery [phone] Urology [phone] Instructions Given to Patient at Discharge: Patient [...] to pass. These medications can be obtained [id number] and their use is recommended on an [...] Time Provider Department Center 07/09/2023 9:[address] [facility] [address] [facility] [address] [facility] 07/09/2023 10:40 AM Cl Atkins PA [facility] [id number] [facility] 07/15/2023 2:30 PM Valdo Awan MD [facility] ID [id number] [facility] Incision: [x] Please follow up for suture/staple removal around 07/20/23 when you follow up with Cl Atkins PA-C. Appointments: [x] Please follow up in the Neurosurgery Clinic in 4-6 weeks. Please call the Neurosurgery Office at [phone] if you do not receive a scheduled appointment within two weeks. [x] Please follow up with Cl Atkins PA-C, in 2 weeks. Your follow-up appointment will be with: [x] Dr. Jimenez HOW TO REACH NEUROSURGERY Office Hours (Thursday through Thursday 8am-5pm): Call On weekends or after office hours (after 5pm or before 8am): Call [phone] and ask the kraft digester operator to page the Neurosurgery Resident/Advanced Practice Provider educational advisor. *Your surgeon may not be attendant sales (especially after office hours or on the weekend) so be ready totell about yourself and your surgery when you call. Neurosurgery Providers Adult Neurosurgery Dr. Ge Medina Pediatric Neurosurgery Dr. Tracey Lee Advanced Practice Providers Sonia Escalona, Nurse Practitioner (outpatient telehealth) Thelma Hebert, Physician Development Expert (inpatient/outpatient: neuro-oncology) Mirian Murrieta, Physician Development Expert (inpatient) Claire Brody, Physician Development Expert (inpatient) Roberto Samano, Physician Development Expert (inpatient) Dennis Calix, Nurse Practitioner (outpatient: pediatric) Ness Vance, Nurse Practitioner (outpatient: vascular) Mary Jessica, Physician Development Expert (outpatient: spine) Cl Atkins, Physician Development Expert (outpatient) Outpatient Nurses EDWARD Knox PA documented [...] their team, please call their office at [phone]. Infectious Disease is treating your abdominal infection. They would like you to continue taking theantibiotic, Augmentin, until you see them for your follow up appointment in 3-4 weeks. -Your appointment is scheduled for 07/15/23. - Infectious Disease can be reached at [phone] for any questions Discharge Instructions For Your [...] is during regular office hours, please call [phone]. If it is after regular office hours, or on weekends or holidays, please call [phone] and ask to speak to the Accounting Director educational advisor for Interventional Radiology. Revised 03/09/15 * Patient [...] to pass. These medications can be obtained [id number] and their use is recommended on an [...] Time Provider Department Center 07/09/2023 9:[address] [facility] [address] [facility] [address] [facility] Rad 07/09/2023 10:40 AM Cl Atkins PA [facility] [id number] [facility] 07/15/2023 2:30 PM Valdo Awan MD [facility] ID [id number] [facility] Incision: [x] Please follow up for suture/staple removal around 07/20/23 when you follow up with Cl Atkins PA-C. Appointments: [x] Please follow up in the Neurosurgery Clinic in 4-6 weeks. Please call the Neurosurgery Office at [phone] if you do not receive a scheduled appointment within two weeks. [x] Please follow up with Cl Atkins PA-C, in 2 weeks. Your follow-up appointment will be with: [x] Dr. Jimenez HOW TO REACH NEUROSURGERY Office Hours (Thursday through Thursday 8am-5pm): Call On weekends or after office hours (after 5pm or before 8am): Call [phone] and ask the kraft digester operator to page the Neurosurgery Resident/Advanced Practice Provider educational advisor. *Your surgeon may not be attendant sales (especially after office hours or on the weekend) so be ready totell about yourself and your surgery when you call. Neurosurgery Providers Adult Neurosurgery Dr. Ge Medina Pediatric Neurosurgery Dr. Tracey Lee Advanced Practice Providers Sonia Escalona, Nurse Practitioner (outpatient telehealth) Thelma Hebert, Physician Development Expert (inpatient/outpatient: neuro-oncology) Mirian Murrieta, Physician Development Expert (inpatient) Claire Brody, Physician Development Expert (inpatient) Roberto Samano, Physician Development Expert (inpatient) Dennis Calix, Nurse Practitioner (outpatient: pediatric) Ness Vance, Nurse Practitioner (outpatient: vascular) Mary Jessica, Physician Development Expert (outpatient: spine) Cl Atkins, Physician Development Expert (outpatient) Outpatient Nurses Jose Rafael Raisa, RN documented in this encounter Medications at [...] Ricci MD - 06/30/2023 7:08 AM EDT [facility] Neurosurgery Progress Note Date: 06/30/2023, HD: 14 24 hour Events: -SANIA -Voiding, drinking andrei gayathri overnight, no abdominal [...] abdominal drainage,subjective fevers, and one day of ALIECA. Found to have discontinuity of distal catheter [...] 06/16/2023 11:01 AM) Result Value WORKSTATION ID [id number] Impression Right frontal approach MEDICAL ASSISTANT PRN shunt catheter with focal discontinuity at the [...] who have questions please contact the health adult caregiver that requested your imaging first. Electronically signed by: Kraig Rizvi MD, [facility] ([phone]), at 06/16/2023 11:[address] Head wo Contrast (Generic) (Exam End: 06/16/2023 10:58 AM) Result Value WORKSTATION ID [id number] Impression Stable examination with no hydrocephalus or other acute abnormality. Thank you for letting us participate in the care of this patient. If you are a health care provider and have any questions regarding this report, please contact the number below. For patients who have questions please contact the health adult caregiver that requested your imaging first. Abdomen & Pelvis w Contrast (Exam End: 06/16/2023 2:04 PM) Result Value WORKSTATION ID [id number] Impression 1. Interval revision of the shunt [...] who have questions please contact the health adult caregiver that requested your imaging first. Electronically signed by: Adrianne Lao MD, [facility] ([phone]), at 06/16/2023 2:49 PM XR Abdomen 1 view (Generic) (Exam End: 06/27/2023 7:16 PM) Result Value WORKSTATION ID [id number] Impression Nonobstructive bowel gas pattern with note [...] who have questions please contact the health adult caregiver that requested your imaging first. Electronically signed by: Kandi Duarte MD, [facility] ([phone]), at 06/27/2023 7:36 PM XR Abdomen Flat & Upright (Exam End: 06/27/2023 8:13 PM) Result Value WORKSTATION ID [id number] Impression Ileus. No perforation. No obstruction. I [...] who have questions please contact the health adult caregiver that requested your imaging first. Electronically signed by: Kandi Duarte MD, [facility] ([phone]), at 06/27/2023 8:[address] Abdomen & Pelvis w Contrast (Exam End: 06/28/2023 9:54 AM) Result Value WORKSTATION ID [id number] Impression 1. No new intra-abdominal or pelvic [...] who have questions please contact the health adult caregiver that requested your imaging first. 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 * Laila Ricci MD - 06/29/2023 4:57 PM EDT [facility] Neurosurgery Progress Note Date: 06/29/2023, HD: [...] 06/16/2023 11:01 AM) Result Value WORKSTATION ID [id number] Impression Right frontal approach MEDICAL ASSISTANT PRN shunt catheter with focal discontinuity at the [...] who have questions please contact the health adult caregiver that requested your imaging first. Electronically signed by: Kraig Rizvi MD, [facility] ([phone]), at 06/16/2023 11:[address] Head wo Contrast (Generic) (Exam End: 06/16/2023 10:58 AM) Result Value WORKSTATION ID [id number] Impression Stable examination with no hydrocephalus or other acute abnormality. Thank you for letting us participate in the care of this patient. If you are a health care provider and have any questions regarding this report, please contact the number below. For patients who have questions please contact the health adult caregiver that requested your imaging first. Abdomen & Pelvis w Contrast (Exam End: 06/16/2023 2:04 PM) Result Value WORKSTATION ID [id number] Impression 1. Interval revision of the shunt [...] who have questions please contact the health adult caregiver that requested your imaging first. Electronically signed by: Adrianne Lao MD, [facility] ([phone]), at 06/16/2023 2:49 PM XR Abdomen 1 view (Generic) (Exam End: 06/27/2023 7:16 PM) Result Value WORKSTATION ID [id number] Impression Nonobstructive bowel gas pattern with note [...] who have questions please contact the health adult caregiver that requested your imaging first. Electronically signed by: Kandi Duarte MD, [facility] ([phone]), at 06/27/2023 7:36 PM XR Abdomen Flat & Upright (Exam End: 06/27/2023 8:13 PM) Result Value WORKSTATION ID [id number] Impression Ileus. No perforation. No obstruction. I [...] who have questions please contact the health adult caregiver that requested your imaging first. Electronically signed by: Kandi Duarte MD, [facility] ([phone]), at 06/27/2023 8:[address] Abdomen & Pelvis w Contrast (Exam End: 06/28/2023 9:54 AM) Result Value WORKSTATION ID [id number] Impression 1. No new intra-abdominal or pelvic [...] who have questions please contact the health adult caregiver that requested your imaging first. Electronically signed by: Kandi Duarte MD, [facility] ([phone]), at 06/28/2023 10:35 AM Problem List: Patient Active Problem List Diagnosis Code S/P MEDICAL ASSISTANT PRN shunt Z98.2 Persistent headaches R51.9 Headache R51.9 Cervicalgia M54.2 Seizures R56.9 Hydrocephalus G91.9 Congenital hydrocephalus Q03.9 Shunt malfunction T85.618A Laila Ricci MD Please page #[phone] with questions regarding all established patients, or #[phone] for first time consults on new patients. [...] medication several times but continues to decline. 1740 - Report called to EDWARD Kwok, NSCU. Patient continues to decline any pain medication stronger than Tylenol. 1754 - Neurosurgery MD rounding on patient. 1759 - Patient transported via bed and on portable monitor to X-ray & then to Room 346A. Patient accompanied by this RN. * Laila Ricci MD - 06/29/2023 5:58 AM EDT [facility] Neurosurgery Progress Note Date: 06/29/2023, HD: [...] 06/16/2023 11:01 AM) Result Value WORKSTATION ID [id number] Impression Right frontal approach MEDICAL ASSISTANT PRN shunt catheter with focal discontinuity at the [...] who have questions please contact the health adult caregiver that requested your imaging first. Electronically signed by: Kraig Rizvi MD, [facility] ([phone]), at 06/16/2023 11:[address] Head wo Contrast (Generic) (Exam End: 06/16/2023 10:58 AM) Result Value WORKSTATION ID [id number] Impression Stable examination with no hydrocephalus or other acute abnormality. Thank you for letting us participate in the care of this patient. If you are a health care provider and have any questions regarding this report, please contact the number below. For patients who have questions please contact the health adult caregiver that requested your imaging first. Abdomen & Pelvis w Contrast (Exam End: 06/16/2023 2:04 PM) Result Value WORKSTATION ID [id number] Impression 1. Interval revision of the shunt [...] who have questions please contact the health adult caregiver that requested your imaging first. Electronically signed by: Adrianne Lao MD, [facility] ([phone]), at 06/16/2023 2:49 PM XR Abdomen 1 view (Generic) (Exam End: 06/27/2023 7:16 PM) Result Value WORKSTATION ID [id number] Impression Nonobstructive bowel gas pattern with note [...] who have questions please contact the health adult caregiver that requested your imaging first. Electronically signed by: Kandi Duarte MD, [facility] ([phone]), at 06/27/2023 7:36 PM XR Abdomen Flat & Upright (Exam End: 06/27/2023 8:13 PM) Result Value WORKSTATION ID [id number] Impression Ileus. No perforation. No obstruction. I [...] who have questions please contact the health adult caregiver that requested your imaging first. Electronically signed by: Kandi Duarte MD, [facility] ([phone]), at 06/27/2023 8:[address] Abdomen & Pelvis w Contrast (Exam End: 06/28/2023 9:54 AM) Result Value WORKSTATION ID [id number] Impression 1. No new intra-abdominal or pelvic [...] who have questions please contact the health adult caregiver that requested your imaging first. Electronically signed by: Kandi Duarte MD, [facility] ([phone]), at 06/28/2023 10:35 AM Problem List: Patient Active Problem List Diagnosis Code S/P MEDICAL ASSISTANT PRN shunt Z98.2 Persistent headaches R51.9 Headache R51.9 Cervicalgia M54.2 Seizures R56.9 Hydrocephalus G91.9 Congenital hydrocephalus Q03.9 Shunt malfunction T85.618A Laila Ricci MD Please page #[phone] with questions regarding all established patients, or #[phone] for first time consults on new patients. [...] Clifton MD - 06/28/2023 8:52 AM EDT [facility] Neurosurgery Progress Note Date: 06/28/2023, HD: [...] 06/16/2023 11:01 AM) Result Value WORKSTATION ID [id number] Impression Right frontal approach MEDICAL ASSISTANT PRN shunt catheter with focal discontinuity at the [...] who have questions please contact the health adult caregiver that requested your imaging first. Electronically signed by: Kraig Rizvi MD, [facility] ([phone]), at 06/16/2023 11:[address] Head wo Contrast (Generic) (Exam End: 06/16/2023 10:58 AM) Result Value WORKSTATION ID [id number] Impression Stable examination with no hydrocephalus or other acute abnormality. Thank you for letting us participate in the care of this patient. If you are a health care provider and have any questions regarding this report, please contact the number below. For patients who have questions please contact the health adult caregiver that requested your imaging first. Abdomen & Pelvis w Contrast (Exam End: 06/16/2023 2:04 PM) Result Value WORKSTATION ID [id number] Impression 1. Interval revision of the shunt [...] who have questions please contact the health adult caregiver that requested your imaging first. Electronically signed by: Adrianne Lao MD, [facility] ([phone]), at 06/16/2023 2:49 PM XR Abdomen 1 view (Generic) (Exam End: 06/27/2023 7:16 PM) Result Value WORKSTATION ID [id number] Impression Nonobstructive bowel gas pattern with note [...] who have questions please contact the health adult caregiver that requested your imaging first. Electronically signed by: Kandi Duarte MD, [facility] ([phone]), at 06/27/2023 7:36 PM XR Abdomen Flat & Upright (Exam End: 06/27/2023 8:13 PM) Result Value WORKSTATION ID [id number] Impression Ileus. No perforation. No obstruction. I [...] who have questions please contact the health adult caregiver that requested your imaging first. Electronically signed by: Kandi Duarte MD, [facility] ([phone]), at 06/27/2023 8:45 PM Problem List: Patient Active Problem List Diagnosis Code S/P MEDICAL ASSISTANT PRN shunt Z98.2 Persistent headaches R51.9 Headache R51.9 Cervicalgia M54.2 Seizures R56.9 Hydrocephalus G91.9 Congenital hydrocephalus Q03.9 Shunt malfunction T85.618A Olga Clifton MD Please page #[phone] with questions regarding all established patients, or #[phone] for first time consults on new patients. * Josselyn Diaz RN - 06/27/2023 9:07 PM EDT Page Sent Successfully Page Confirmation To Pager number: [phone] From Submitter: Josselyn Diaz Urgency Level: FYI Callback Number: [id number] The following Message was sent: [FYI] - Callback:[id number], Chapin Costa KUB resulted, Illeus - Josselyn Diaz The following status was returned from the electrical prospecting observer: Page for [phone] successfully sent to [phone] having status of Available. * Olga Clifton MD - 06/27/2023 8:09 AM EDT [facility] Neurosurgery Progress Note Date: 06/27/2023, HD: [...] 06/16/2023 11:01 AM) Result Value WORKSTATION ID [id number] Impression Right frontal approach MEDICAL ASSISTANT PRN shunt catheter with focal discontinuity at the [...] who have questions please contact the health adult caregiver that requested your imaging first. Electronically signed by: Kraig Rizvi MD, [facility] ([phone]), at 06/16/2023 11:[address] Head wo Contrast (Generic) (Exam End: 06/16/2023 10:58 AM) Result Value WORKSTATION ID [id number] Impression Stable examination with no hydrocephalus or other acute abnormality. Thank you for letting us participate in the care of this patient. If you are a health care provider and have any questions regarding this report, please contact the number below. For patients who have questions please contact the health adult caregiver that requested your imaging first. Abdomen & Pelvis w Contrast (Exam End: 06/16/2023 2:04 PM) Result Value WORKSTATION ID [id number] Impression 1. Interval revision of the shunt [...] who have questions please contact the health adult caregiver that requested your imaging first. Electronically signed by: Adrianne Lao MD, [facility] ([phone]), at 06/16/2023 2:49 PM Problem List: Patient Active Problem List Diagnosis Code S/P MEDICAL ASSISTANT PRN shunt Z98.2 Persistent headaches R51.9 Headache R51.9 Cervicalgia M54.2 Seizures R56.9 Hydrocephalus G91.9 Congenital hydrocephalus Q03.9 Shunt malfunction T85.618A Olga Clifton MD Please page #[phone] with questions regarding all established patients, or #[phone] for first time consults on new patients. * Laila Ricci MD - 06/26/2023 5:44 AM EDT [facility] Neurosurgery Progress Note Date: 06/26/2023, HD: [...] Patient Active Problem List Diagnosis Code S/P MEDICAL ASSISTANT PRN shunt Z98.2 Persistent headaches R51.9 Headache R51.9 Cervicalgia M54.2 Seizures R56.9 Hydrocephalus G91.9 Congenital hydrocephalus Q03.9 Shunt malfunction T85.618A Laila Ricci MD Please page #[phone] with questions regarding all established patients, or #[phone] for first time consults on new patients. [...] Ricci MD - 06/25/2023 7:15 AM EDT [facility] Neurosurgery Progress Note Date: 06/25/2023, HD: [...] Patient Active Problem List Diagnosis Code S/P MEDICAL ASSISTANT PRN shunt Z98.2 Persistent headaches R51.9 Headache R51.9 Cervicalgia M54.2 Seizures R56.9 Hydrocephalus G91.9 Congenital hydrocephalus Q03.9 Shunt malfunction T85.618A Laila Ricci MD Please page #[phone] with questions regarding all established patients, or #[phone] for first time consults on new patients. [...] EVD (External Ventricular Drain) 06/16/23 1900 06/16/23 190 -- 8 Oxygen Therapy / Airway Device: [...] for hospital length of stay nutrition visit, insurance underwriter sales met with Ever at bedside. Ever reports good appetite, eating 100% of meals (confirmed in flowsheets). He notes that he may havea smaller appetite than JOURNEYMAN WIREMAN, but feels he is getting enough. Per [...] region (triceps/biceps): None present Lean Muscle Loss Jain region (temporalis muscle): None present Clavicle bone region (pectoralis major): None present Dorsal hand (interosseous muscle): None present Shoulder (deltoid): None present Scapular bone region (latissimus dorsi, trapezius muscles): Not assessed Thigh region (quadriceps muscle): None present Posterior calf region (gastrocnemius muscle): None present Malnutrition Diagnosis: Not identified (JEAN Thornton J Parenteral Enteral Nutr. 2011; 36(3): 273-83) Nutrition to continue to follow up while inpatient ThanksShagufta, MS, RDN, LD Clinical Nutrition * Laila Ricci MD - 06/24/2023 5:28 AM EDT [facility] Neurosurgery Progress Note Date: 06/24/2023, HD: [...] Patient Active Problem List Diagnosis Code S/P MEDICAL ASSISTANT PRN shunt Z98.2 Persistent headaches R51.9 Headache R51.9 Cervicalgia M54.2 Seizures R56.9 Hydrocephalus G91.9 Congenital hydrocephalus Q03.9 Shunt malfunction T85.618A Laila Ricci MD Please page #[phone] with questions regarding all established patients, or #[phone] for first time consults on new patients. [...] distal catheter within the RUQ, presented to [facility] [place] with 2 days of abdominal pain, subjective fevers, and one day of headache, currently being managed for intra-abdominal infection at the site of MEDICAL ASSISTANT PRN shunt without any evidence of shunt infection [...] OR on 06/19 for removal of distal/intra-abdominal MEDICAL ASSISTANT PRN shunt catheter--removed 7.5 cm of the cephalad portion of the shunt. Path sent. In regards of timing for reinternalizing MEDICAL ASSISTANT PRN shunt, ok to revise at this time. [...] 3 to 4 weeks. -Okay to revise MEDICAL ASSISTANT PRN shunt at this time -Rest of the care per primary team Patient discussed with ID attending Dr. Armijo. Thank you for the consult. ID consult service will sign off. Please do not hesitate to page with any questions or concerns. Please page ID Green team (pager [phone]) with questions or concerns. Stacy Adamson MD Fellow, Infectious Disease Pager: [phone] Epic Chat 06/23/2023 Associated attestation - Memo Armijo MD - 06/23/2023 9:16 PM EDT Attending Addendum: I have seen and examined the patient, reviewed the data and agree with the note by Dr. Adamson. * Main Trevino MD - 06/23/2023 6:30 AM EDT [facility] Neurosurgery Progress Note Date: 06/23/2023, HD: [...] Patient Active Problem List Diagnosis Code S/P MEDICAL ASSISTANT PRN shunt Z98.2 Persistent headaches R51.9 Headache R51.9 Cervicalgia M54.2 Seizures R56.9 Hydrocephalus G91.9 Congenital hydrocephalus Q03.9 Shunt malfunction T85.618A Main Trevino MD Please page #[phone] with questions regarding all established patients, or #[phone] for first time consults on new patients. * Carley Sun, [facility] - 06/22/2023 4:42 PM EDT Images from [...] Aid Case d/w TYRELL Kwok team (Drs. Armijo, Juan Diego). They agree with the plan above. For any additional questions, please contact me at the info below. Thank you for the opportunity to assist in this patient's care. Carley Sun, PharmD, MS Clinical Pharmacist Lead - Infectious Disease [facility] [phone] Pager [phone] [employer] Secure Chat * Stacy Adamson MD - [...] distal catheter within the RUQ, presented to [facility] [place]15 with 2 days of abdominal pain, subjective fevers, and one day of headache, currently being managed for intra-abdominal infection at the site of MEDICAL ASSISTANT PRN shunt without any evidence of shunt infection [...] OR on 06/19 for removal of distal/intra-abdominal MEDICAL ASSISTANT PRN shunt catheter--removed 7.5 cm of the cephalad portion of the shunt. Path sent. In regards of timing for reinternalizing MEDICAL ASSISTANT PRN shunt, If CSF remains negative it would [...] hours. -In regards of timing for reinternalizing MEDICAL ASSISTANT PRN shunt, If CSF remains negative it would [...] concerns. Please page ID Green team (pager [phone]) with questions or concerns. Stacy Adamson MD Fellow, Infectious Disease Pager: [phone] Epic Chat 06/22/2023 Associated attestation - Memo [...] Ricci MD - 06/22/2023 6:05 AM EDT [facility] Neurosurgery Progress Note Date: 06/22/2023, HD: [...] TML No pronator drift RUE: 06/27 LUE: /5 RLE: 06/27 LLE: 06/27 SILTx4 R cranial incision well healed, no areas of erythema, no drainage Abdominal incision CDI with dermabond/absorbable suture Abdomen nontender Drains: Patent VPS catheter with clear output. Dressing on R chest is dry. Labs/Imaging: Reviewed in Epic. Problem List: Patient Active Problem List Diagnosis Code S/P MEDICAL ASSISTANT PRN shunt Z98.2 Persistent headaches R51.9 Headache R51.9 Cervicalgia M54.2 Seizures R56.9 Hydrocephalus G91.9 Congenital hydrocephalus Q03.9 Shunt malfunction T85.618A Laila Ricci MD Please page #[phone] with questions regarding all established patients, or #[phone] for first time consults on new patients. * Mary Hall MD - 06/21/2023 4:40 PM EDT Infectious Diseases Consultation Progress Note Major 24 Hour Events / Subjective: Taken to the OR on 06/19 for removal of the distal/intra-abdominal MEDICAL ASSISTANT PRN shunt catheter 30cm in length,removed 7.5cm of [...] reviewed Procedures - reveiwed External Records in [facility] - reviewed. Impression & Recommendations: 52 year-old [...] represented abscesses in the setting of recent MEDICAL ASSISTANT PRN shunt revision he was continued on vancomycin and ceftriaxone. Taken to the OR on 06/19 for removal of the distal/intra-abdominal MEDICAL ASSISTANT PRN shunt cath eter 30cm in length, removed [...] will continue to follow along. Please page [phone] with any questions. Uriel Roy MD Infectious [...] intra-abdominal fluid collection. Procedures: 06/16/23: externalization of MEDICAL ASSISTANT PRN shunt (NSGY) 06/20/23: OR for removal of the distal/intra-abdominal MEDICAL ASSISTANT PRN shunt catheter 30cm in length, removed 7.5cm [...] intact, nonfocal, follows commands Labs: Recent Labs 06/21/23 0222 06/20/23 0516 06/19/23 0330 WBC 10.3* 10.9* [...] Now s/p removal of the remnant intraabdominal MEDICAL ASSISTANT PRN shunt 06/20/23. Patient has recovered well from [...] If you have any questions, please page [phone]. Consult service will sign off Vivian Lawson MD 06/21/2023 Acute Care Surgery Service p.[phone] * Laila Ricci MD - 06/21/2023 5:40 AM EDT [facility] Neurosurgery Progress Note Date: 06/21/2023, HD: [...] Patient Active Problem List Diagnosis Code S/P MEDICAL ASSISTANT PRN shunt Z98.2 Persistent headaches R51.9 Headache R51.9 Cervicalgia M54.2 Seizures R56.9 Hydrocephalus G91.9 Congenital hydrocephalus Q03.9 Shunt malfunction T85.618A Laila Ricci MD Please page #[phone] with questions regarding all established patients, or #[phone] for first time consults on new patients. [...] Ricci MD - 06/20/2023 6:23 AM EDT [facility] Neurosurgery Progress Note Date: 06/20/2023, HD: [...] Patient Active Problem List Diagnosis Code S/P MEDICAL ASSISTANT PRN shunt Z98.2 Persistent headaches R51.9 Headache R51.9 Cervicalgia M54.2 Seizures R56.9 Hydrocephalus G91.9 Congenital hydrocephalus Q03.9 Shunt malfunction T85.618A Laila Ricci MD Please page #[phone] with questions regarding all established patients, or #[phone] for first time consults on new patients. * Arely Murray MD - 06/20/2023 5:59 AM EDT Acute Care Surgery Inpatient Consult Progress Note Admission Date: 06/16/2023 Primary Team: RADHIKA ID: Chapin Garay Ever Costa is a 52 y.o. male [...] intra-abdominal fluid collection. Procedures: 06/16/23: externalization of MEDICAL ASSISTANT PRN shunt (NSGY) Subjective Interval Events/Subjective: - NAOE [...] for foreign body removal of the remnant MEDICAL ASSISTANT PRN shunt within the peritoneum. The size of [...] If you have any questions, please page [phone]. Consult service will continue to follow along Jackelyn Simon MD 06/20/2023 Acute Care Surgery Service p.[phone] Acute Care Surgery Attending Addendum: I have [...] Date: 06/16/2023 Primary Team: RADHIKA ID: Chapin Costa is a 52 y.o. [...] intra-abdominal fluid collection. Procedures: 06/16/23: externalization of MEDICAL ASSISTANT PRN shunt (NSGY) Subjective Interval Events/Subjective: - NAOE [...] for foreign body removal of the remnant MEDICAL ASSISTANT PRN shunt within the peritoneum. The size of [...] If you have any questions, please page [phone]. Consult service will continue to follow along Vivian Lawson MD 06/19/2023 Acute Care Surgery Service p.[phone] Associated attestation [...] identified at this time. Given concern for MEDICAL ASSISTANT PRN drain integrity anticipate pt will continue to ambulate with supervision of staff while remains with current externalized setup, but when returns to baseline, no needs foreseen. Pt in agreement. Will d/c PT consult, please page me should additional needs or concerns arise. 1128 - 1151 IE Low (23mins) Meghan Stokes, PT, MSPT Pager [phone] Inpatient Physical Therapy 06/19/23 1151 Evaluation & Treatment Document Type evaluation Total [...] Ricci MD - 06/19/2023 5:19 AM EDT [facility] Neurosurgery Progress Note Date: 06/19/2023, HD: [...] Patient Active Problem List Diagnosis Code S/P MEDICAL ASSISTANT PRN shunt Z98.2 Persistent headaches R51.9 Headache R51.9 Cervicalgia M54.2 Seizures R56.9 Hydrocephalus G91.9 Congenital hydrocephalus Q03.9 Shunt malfunction T85.618A Laila Ricci MD Please page #[phone] with questions regarding all established patients, or #[phone] for first time consults on new patients. * Meghan Stkoes PT - 06/18/2023 3:54 PM EDT Physical Therapy 06/18/23 2989 Evaluation & Treatment Document Type contact Total Minutes, Physical Therapy 0 Comment, Session Not Performed PT consult received, hx/current status reviewed. attempted to see ptfor assessment, he is currently off unit for procedure. will plan to f.u as appropriate tomorrow. Meghan Stokes PT, MSPT Pager [phone] Inpatient Physical Therapy * Trevor Sandoval RN - 06/18/2023 3:35 PM EDT [facility] Name: Chapin Costa Date of : 1970 AGE: 52 y.o. Address: [address] [place] [address] (home) Mobile: Telephone Information: Referring Provider: None [...] Planned procedure: aspiration of right upper quadrant MEDICAL ASSISTANT PRN shunt fluid collection Labs to be performed [...] Patient Active Problem List Diagnosis Code S/P MEDICAL ASSISTANT PRN shunt Z98.2 Persistent headaches R51.9 Headache R51.9 [...] Ricci MD - 06/18/2023 5:31 AM EDT [facility] Neurosurgery Progress Note Date: 06/18/2023, HD: [...] Patient Active Problem List Diagnosis Code S/P MEDICAL ASSISTANT PRN shunt Z98.2 Persistent headaches R51.9 Headache R51.9 Cervicalgia M54.2 Seizures R56.9 Hydrocephalus G91.9 Congenital hydrocephalus Q03.9 Shunt malfunction T85.618A Laila Ricci MD Please page #[phone] with questions regarding all established patients, or #[phone] for first time consults on new patients. * Richard Valles MD - 06/17/2023 7:18 AM EDT [facility] Neurosurgery Progress Note Date: 06/17/2023, HD: [...] RLE: 06/27 LLE: 06/27 SILTx4 No clonus R cranial incision well healed, no areas of erythema, no drainage Abdominal incision with skin defect, surrounding erythema slightly improved, tender to palpation. Pain to palpation of right abdomen No nuchal rigidity Drains: EVD with clear output. Labs/Imaging: Reviewed in Epic. Problem List: Patient Active Problem List Diagnosis Code S/P MEDICAL ASSISTANT PRN shunt Z98.2 Persistent headaches R51.9 Headache R51.9 Cervicalgia M54.2 Seizures R56.9 Hydrocephalus G91.9 Congenital hydrocephalus Q03.9 Shunt malfunction T85.618A Richard Valles MD Please page #[phone] with questions regarding all established patients, or #[phone] for first time consults on new patients. documented in this encounter H&P Notes * Collin Machado PA - 06/17/2023 4:54 PM EDT Images from the original note were not included. Interventional Radiology Focused Pre-procedure H&P: PCP: MARVA Gordon Procedure indication: Congenital hydrocephalus, MEDICAL ASSISTANT PRN shunt fluid collection IR workflow: Procedure request received through the Interventional Radiology eDH order queue. History of present illness: Per chart review, Chapin Costa is a 52 y.o. male who presents toInterventional Radiology to undergo aspiration of fluid around MEDICAL ASSISTANT PRN shunt in the setting of recent revision. [...] with fluid and pain at site of MEDICAL ASSISTANT PRN shunt revision presenting to Interventional Radiology for fluid aspiration. Plan Planned procedure: aspiration of right upper quadrant MEDICAL ASSISTANT PRN shunt fluid collection Labs to be performed [...] Patient Active Problem List Diagnosis Code S/P MEDICAL ASSISTANT PRN shunt Z98.2 Persistent headaches R51.9 Headache R51.9 [...] 4.06) performed by Shan Rivero MD at [facility] OSC PRO EXTRACTION, ERUPTED TOOTH OR EXPOSED ROOT N/A 10/18/2020 EXTRACTION, ERUPTED TOOTH OR EXPOSED ROOT (WRVU 0.62) performed by Shan Rivero MD at [facility] OSC PRO IMPACT TOOTH REM BONY W/COMP N/A 10/18/2020 SURGICAL EXTRACTIONS, REMOVAL OF IMPACTED TOOTH, COMPLETELY BONY WITH UNUSUAL SURGICAL COMPLICATIONS (WRVU 2.91) performed by Shan Rivero MD at [facility] OSC PRO IMPACT TOOTH REMOV COMP BONY N/A 10/18/2020 SURGICAL EXTRACTIONS, REMOVAL OF IMPACTED TOOTH, COMPLETELY BONY (WRVU 1.93) performed by Shan Rivero MD at [facility] OSC PRO REMOVAL ERUPTED TOOTH WITH ELEVATION OF MUCOPERIOSTEAL FLAP Bilateral 10/18/2020 SURGICAL EXTRACTIONS REQUIRING ELEVATION OF MUCOPERIOSTEAL FLAP AND REMOVAL OF BONE OR SECTION OF TOOTH (WRVU 1.09) performed by Shan Rivero MD at [facility] OSC PRO REPLACEMENT/REVISION, CSF SHUNT Right 06/09/2023 REVISION OR REPLACEMENT CSF SHUNT (WRVU 11.43) performed by Rhoda Jimenez MD at [facility] MAIN OR PRO UNLISTED PROCEDURE NERVOUS SYSTEM Right 05/24/2022 EXPLORATION VENTRICULO-PERITONEAL SHUNT (WRVU 25.48) performed by Rhoda Jimenez MD at [facility] MAIN OR SHOULDER SURGERY ULNAR TUNNEL [...] Bautista MD - 06/16/2023 12:24 PM EDT [facility] NEUROSURGERY H&P ID: Chapin Costa, 52 [...] confrontation, FS, TML No pronator drift RUE: 5/5 LUE: 5/5 RLE: 5/5 LLE: 5/ SILTx4 [...] abnormality. XRSS 06/16/23 IMPRESSION Right frontal approach MEDICAL ASSISTANT PRN shunt catheter with focal discontinuity at the [...] Time Provider Department Center 07/09/2023 9:[address] [facility] [address] [facility] [address] [facility] Rad 07/09/2023 10:40 AM Cl Atkins PA [facility] [id number] Neurosurgery Pager: [phone] Lisa Bautista MD 06/16/2023 12:24 PM Clinical [...] 4.06) performed by Shan Rivero MD at [facility] OSC PRO EXTRACTION, ERUPTED TOOTH OR EXPOSED ROOT N/A 10/18/2020 EXTRACTION, ERUPTED TOOTH OR EXPOSED ROOT (WRVU 0.62) performed by Shan Rivero MD at [facility] OSC PRO IMPACT TOOTH REM BONY W/COMP N/A 10/18/2020 SURGICAL EXTRACTIONS, REMOVAL OF IMPACTED TOOTH, COMPLETELY BONY WITH UNUSUAL SURGICAL COMPLICATIONS (WRVU 2.91) performed by Shan Rivero MD at [facility] O[facility] PRO IMPACT TOOTH REMOV COMP BONY N/A 10/18/2020 SURGICAL EXTRACTIONS, REMOVAL OF IMPACTED TOOTH, COMPLETELY BONY (WRVU 1.93) performed by Shan Rivero MD at [facility] OSC PRO REMOVAL ERUPTED TOOTH WITH ELEVATION OF MUCOPERIOSTEAL FLAP Bilateral 10/18/2020 SURGICAL EXTRACTIONS REQUIRING ELEVATION OF MUCOPERIOSTEAL FLAP AND REMOVAL OF BONE OR SECTION OF TOOTH (WRVU 1.09) performed by Shan Rivero MD at [facility] OSC PRO REPLACEMENT/REVISION, CSF SHUNT Right 06/09/2023 REVISION OR REPLACEMENT CSF SHUNT (WRVU 11.43) performed by Rhoda Jimenez MD at [facility] MAIN OR PRO UNLISTED PROCEDURE NERVOUS SYSTEM Right 05/24/2022 EXPLORATION VENTRICULO-PERITONEAL SHUNT (WRVU 25.48) performed by Rhoda Jimenez MD at [facility] MAIN OR SHOULDER SURGERY ULNAR TUNNEL [...] days. On the nd of every month benztropine (Cogentin) 0.5 mg [...] Intimate Partner Violence: Not At Risk (06/09/2023) IPV Inpatient Questions Prevent Contact with Others: [...] Bautista MD - 06/16/2023 7:01 PM EDT [facility] NEUROSURGERY MEDICAL ASSISTANT PRN SHUNT TAP NOTE Date: 06/16/23 Patient: Chapin [...] Costa is a 52 y.o. male with MEDICAL ASSISTANT PRN shunt who presents to the Emergency Department [...] Shunt Series Final Result Right frontal approach MEDICAL ASSISTANT PRN shunt catheter with focal discontinuity at the [...] who have questions please contact the health adult caregiver that requested your imaging first. Electronically signed by: Kraig Rizvi MD, [facility] ([phone]), at 06/16/2023 11:[address] Head wo Contrast (Generic) Final Result Stable examination with no hydrocephalus or other acute abnormality. Thank you for letting us participate in the care of this patient. If you are a health care provider and have any questions regarding this report, please contact the number below. For patients who have questions please contact the health adult caregiver that requested your imaging first. Abdomen & Pelvis w Contrast (Results Pending) [...] abdominal pain and given his leukocytosis to [id number] think it's reasonable to get CT abdomen [...] the patient. Leighton Ordoñez MD Resident 06/16/23 0177 Associated attestation - Dennis Castillo MD - [...] updated. Vishal Padron RN RN/LUDA - Cellphone: [phone] Pager: [phone] Covering Service RNSINA * Care Management Discharge - Vishal Padron [...] information for follow-up [facility], [place] [facility] [address] [place] [address] Transportation: family or friend will provide Functional [...] letter. Vishal Padron RN RN/CM - Cellphone: [phone] Pager: [phone] Covering Service RN/CM * Care Management - Vishal Padron RN - 06/30/2023 9:54 AM EDT The [employer] Eng[employer] has been provided a list of Home Health Agencies/DME vendors which serve their preferred geographic area. A letter describing our affiliations was reviewed with them and they were educated about their right to choose where referrals are placed. Patient requests referral to : [facility] [address] [place] [address] PHONE: [phone] FAX: [phone] Expected date of discharge: 06/30/2023 Referral routed to the Senior Etl Developer for matching with agency/vendor and to provide any required information. Vishal Padron RN RN/CM - Cellphone: [phone] Pager: [phone] Covering Service RN/CM * Plan of Care [...] Operative Note Patient Name: Chapin Costa : [id number] MR#: [id number] Case Date: 06/29/2023 Surgeon: Surgeon(s) and Role: * Rhoda Jimenez MD - Primary * Laila Ricci MD - Resident - Assisting Preoperative diagnosis: hydrocephalus Postoperative diagnosis: hydrocephalus Procedure(s) (LRB): REVISION OR REPLACEMENT CSF SHUNT (WRVU 11.43) (Right) Anesthesia: General Findings: Removal of [...] Recommendations Transportation: Family Barriers to discharge: Discharge estate planning paralegal/CM following up as patient is anticipated to have OR on 06/30/2023. Following for any rehab re-evaluation closer to discharge and after OR. Plan going forward: Service Care Management will continue to follow and assist with discharge planning and coordination of care as indicated. Anticipated Date of Discharge: 07/01/2023 Vishal Padron RN RN/CM - Cellphone: [phone] Pager: [phone] Covering Service RN/CM * Op Note - Rhoda Jimenez MD - 06/29/2023 2:35 PM EDT [facility] [place] Patient Name: Chapin Costa : [id number] MR#: [id number] Case Date: 06/29/2023 Surgeon: Surgeon(s) and Role: [...] the chest, this is marked with green yocha dehe. The patient was taken back to the [...] 07/04/2023 * Consult Note - Leighton Patel, RIBBON TIER - 06/29/2023 4:44 AM EDT Acute Care [...] IR All Drainage Procedures Bentley Arceo MD [facility] RAD PRO ALVEOLOPLASTY W EXTRACTIONS, 4 OR MORE TEETH, PER QUADRANT N/A 10/18/2020 ALVEOPLASTY,IN CONJUNCTION WITH EXTRACTIONS,PER QUADRANT,ENT (WRVU 4.06) performed by Shan Rivero MD at [facility] OSC PRO EXTRACTION, ERUPTED TOOTH OR EXPOSED ROOT N/A 10/18/2020 EXTRACTION, ERUPTED TOOTH OR EXPOSED ROOT (WRVU 0.62) performed by Shan Rivero MD at [facility] OSC PRO IMPACT TOOTH REM BONY W/COMP N/A 10/18/2020 SURGICAL EXTRACTIONS, REMOVAL OF IMPACTED TOOTH, COMPLETELY BONY WITH UNUSUAL SURGICAL COMPLICATIONS (WRVU 2.91) performed by Shan Rivero MD at [facility] OSC PRO IMPACT TOOTH REMOV COMP BONY N/A 10/18/2020 SURGICAL EXTRACTIONS, REMOVAL OF IMPACTED TOOTH, COMPLETELY BONY (WRVU 1.93) performed by Shan Rivero MD at [facility] O[facility] PRO REMOVAL ERUPTED TOOTH WITH ELEVATION OF MUCOPERIOSTEAL FLAP Bilateral 10/18/2020 SURGICAL EXTRACTIONS REQUIRING ELEVATION OF MUCOPERIOSTEAL FLAP AND REMOVAL OF BONE OR SECTION OF TOOTH (WRVU 1.09) performed by Shan Rivero MD at [facility] PRO REMOVAL, COMPLETE CSF SHUNT, W/O REPLACE Right 06/20/2023 @REMOVAL OF COMPLETE CSF SHUNT, W/O REPLACEMENT (WRVU 7.38) [facility] REPLACEMENT/REVISION, CSF SHUNT Right 06/09/2023 REVISION OR REPLACEMENT CSF SHUNT (WRVU 11.43) performed by Rhoda Jimenez MD at [facility] MA[facility] OR PRO UNLISTED PROCEDURE NERVOUS SYSTEM Right 05/24/2022 EXPLORATION VENTRICULO-PERITONEAL SHUNT (WRVU 25.48) performed by Rhoda Jimenez MD at [facility] MAIN OR SHOULDER SURGERY ULNAR TUNNEL RELEASE Right VENTRICULOPERITONEAL SHUNT Multiple revisions - ~46 prior revisions Home Medications: Current Outpatient Medications Medication Instructions acetaminophen (TYLENOL) 500 mg, Oral, EVERY 6 HOURS PRN, T Aimovig Autoinjector 70 mg, Injection, EVERY 30 DAYS, On the 22 of every month ARIPiprazole (ABILIFY) 10 mg, [...] to EVD Data Reviewed: Labs: Recent Labs 06/29/2332506/28/23 0558 WBC 12.4* 13.6* HGB 17.4* 18.1* [...] 72 hours. No results for input(s): PHART, ZEU3TDA, PO2ART, QSY2TIX in the last 72 hours. Studies: IMPRESSION [...] If you have any questions, please page [phone]. Consult service will sign off Leighton Patel, RIBBON TIER 06/29/2023 Acute Care Surgery Service p.[phone] * [...] Patient Active Problem List Diagnosis Code S/P MEDICAL ASSISTANT PRN shunt Z98.2 Persistent headaches R51.9 Headache R51.9 Cervicalgia M54.2 Seizures R56.9 Hydrocephalus G91.9 Congenital hydrocephalus Q03.9 Shunt malfunction T85.618A PSH: Past Surgical History: Procedure Laterality Date CARPAL TUNNEL RELEASE Right CHOLECYSTECTOMY, LAPAROSCOPIC IR ALL DRAINAGE PROCEDURES 06/18/2023 IR All Drainage Procedures Bentley Arceo MD [facility] RAD PRO ALVEOLOPLASTY W EXTRACTIONS, 4 OR MORE TEETH, PER QUADRANT N/A 10/18/2020 ALVEOPLASTY,IN CONJUNCTION WITH EXTRACTIONS,PER QUADRANT,ENT (WRVU 4.06) performed by Shan Rivero MD at [facility] PRO EXTRACTION, ERUPTED TOOTH OR EXPOSED ROOT N/A 10/18/2020 EXTRACTION, ERUPTED TOOTH OR EXPOSED ROOT (WRVU 0.62) performed by Shan Rivero MD at [facility] PRO IMPACT TOOTH REM BONY W/COMP N/A 10/18/2020 SURGICAL EXTRACTIONS, REMOVAL OF IMPACTED TOOTH, COMPLETELY BONY WITH UNUSUAL SURGICAL COMPLICATIONS (WRVU 2.91) performed by Shan Rivero MD at [facility] PRO IMPACT TOOTH REMOV COMP BONY N/A 10/18/2020 SURGICAL EXTRACTIONS, REMOVAL OF IMPACTED TOOTH, COMPLETELY BONY (WRVU 1.93) performed by Shan Rivero MD at [facility] PRO REMOVAL ERUPTED TOOTH WITH ELEVATION OF MUCOPERIOSTEAL FLAP Bilateral 10/18/2020 SURGICAL EXTRACTIONS REQUIRING ELEVATION OF MUCOPERIOSTEAL FLAP AND REMOVAL OF BONE OR SECTION OF TOOTH (WRVU 1.09) performed by Shan Rivero MD at [facility] PRO REMOVAL, COMPLETE CSF SHUNT, W/O REPLACE Right 06/20/2023 @REMOVAL OF COMPLETE CSF SHUNT, W/O REPLACEMENT (WRVU 7.38) [facility]PLACEMENT/REVISION, CSF SHUNT Right 06/09/2023 REVISION OR REPLACEMENT CSF SHUNT (WRVU 11.43) performed by Rhoda Jimenez MD at [facility] MA[facility] OR PRO UNLISTED PROCEDURE NERVOUS SYSTEM Right 05/24/2022 EXPLORATION VENTRICULO-PERITONEAL SHUNT (WRVU 25.48) performed by Rhoda Jimenez MD at [facility] MA[facility] OR SHOULDER SURGERY ULNAR TUNNEL [...] to EVD Data Reviewed: Labs: Recent Labs 06/28/2358 06/26/23 0415 WBC 13.6* 11.1* HGB 18.1* [...] 72 hours. No results for input(s): PHART, MYQ5FCT, PO2ART, GVA4TGL in the last 72 hours. Studies: IMPRESSION [...] imaging the patient does not have a lelia bowel obstruction however likely hasa partially obstructing [...] If you have any questions, please page [phone]. Consult service will continue to follow along John Clements MD 06/28/2023 Acute Care Surgery Service p.[phone] Attending Addendum I have seen and examined [...] MEDICAID [place] Prescription Coverage: Yes [facility] [place] [place] [facility] [address] [facility] [address] [facility] [address] Plan for discharge is: Pending Hospital Course and PT/OT Recommendations Agency Referrals & Follow-up Care: Pending Hospital Course and PT/OT Recommendations Transportation: family or friend will provide Barriers to discharge: Discharge estate planning paralegal/CM following for OR next week and reassessment by rehab services. Plan PO Antibiotics at this time. Legal Guardians: Tracy Fregoso Relationship: Guardianship [phone] Plan going forward: Service Care Management will continue to follow and assist with discharge planning and coordination of care as indicated. Anticipated Date of Discharge: 07/01/2023 Vishal Padron RN RN/CM - Cellphone: [phone] Pager: [phone] Covering Service RN/CM * Plan of Care [...] allergy test dose of amoxicillin. Reviewed with group home supervisor, re-timed for this evening forclose monitoring. Endorsed [...] Anticipated Date of Discharge: 06/26/2023 Shaunna Yarbrough RNCM Office of Care Management * Plan of [...] Operative Note Patient Name: Chapin Costa : [id number] MR#: [id number] Case Date: 06/20/2023 Surgeon: Surgeon(s) and Role: * Arely Murray MD - Primary * Delgado Denis MD - Resident - Assisting Preoperative diagnosis: MEDICAL ASSISTANT PRN shunt revision Postoperative diagnosis: MEDICAL ASSISTANT PRN shunt revision Procedure(s) (LRB): LAPAROSCOPY, DIAGNOSTIC, ABDOMEN [...] Collection Info Order Time SPECIMEN TO PATHOLOGY MEDICAL ASSISTANT PRN shunt revision explanted MEDICAL ASSISTANT PRN shunt catheter excision 06/20/2023 2:24 PM Time [...] Bundle Used? N/A * Op Note - Aerly Murray MD - 06/20/2023 2:16 PM EDT [facility] [place] Patient Name: Chapin Costa : [id number] MR#: [id number] Case Date: 06/20/2023 Surgeon: Surgeon(s) and Role: * Arely Murray MD - Primary * Delgado Denis MD - Resident - Assisting Preoperative diagnosis: MEDICAL ASSISTANT PRN shunt revision Postoperative diagnosis: MEDICAL ASSISTANT PRN shunt revision Procedure(s) (LRB): @REMOVAL OF COMPLETE [...] Collection Info Order Time SPECIMEN TO PATHOLOGY MEDICAL ASSISTANT PRN shunt revision explanted MEDICAL ASSISTANT PRN shunt catheter excision 06/20/2023 2:24 PM Time [...] removal of the intra-abdominal portion of the MEDICAL ASSISTANT PRN shunt. Procedure Description: The patient was taken [...] include opening and closing). ARELY MURRAY MD 06/21/2023 * Plan of Care - Aria Ortega RN - 06/20/2023 5:58 AM EDT OUTCOME EVALUATION NOTE: OUTCOME SUMMARY: Pt VSS. Pt NPO after midnight for Laparoscopic surgery today. Pt is A&O x 4, Pupils are equal but dysconjugate. He has an externalized shut leveled at 0. Output has been 10-15cc Q2hrs. No complaints of pain overnight. PLAN MOVING FORWARD: Laparoscopic surgery U6Cwwcy exams Q2 EVD output CARE PLAN GOAL [...] Consult Note Patient Name: Chapin Costa MR#: [id number] : 1970 Admission Date: 06/16/2023 Primary Team: NSGY Consult Requested by: Rhoda Jimenez MD Reason for Consult: intraabdominal fluid collection near MEDICAL ASSISTANT PRN shunt tip, ?I&D Time Paged for Consult: [...] Patient Active Problem List Diagnosis Code S/P MEDICAL ASSISTANT PRN shunt Z98.2 Persistent headaches R51.9 Headache R51.9 Cervicalgia M54.2 Seizures R56.9 Hydrocephalus G91.9 Congenital hydrocephalus Q03.9 Shunt malfunction T85.618A PSH: Past Surgical History: Procedure Laterality Date CARPAL TUNNEL RELEASE Right CHOLECYSTECTOMY, LAPAROSCOPIC PRO ALVEOLOPLASTY W EXTRACTIONS, 4 OR MORE TEETH, PER QUADRANT N/A 10/18/2020 ALVEOPLASTY,IN CONJUNCTION WITH EXTRACTIONS,PER QUADRANT,ENT (WRVU 4.06) performed by Shan Rivero MD at [facility] PRO EXTRACTION, ERUPTED TOOTH OR EXPOSED ROOT N/A 10/18/2020 EXTRACTION, ERUPTED TOOTH OR EXPOSED ROOT (WRVU 0.62) performed by Shan Rivero MD at [facility] PRO IMPACT TOOTH REM BONY W/COMP N/A 10/18/2020 SURGICAL EXTRACTIONS, REMOVAL OF IMPACTED TOOTH, COMPLETELY BONY WITH UNUSUAL SURGICAL COMPLICATIONS (WRVU 2.91) performed by Shan Rivero MD at [facility] PRO IMPACT TOOTH REMOV COMP BONY N/A 10/18/2020 SURGICAL EXTRACTIONS, REMOVAL OF IMPACTED TOOTH, COMPLETELY BONY (WRVU 1.93) performed by Shan Rivero MD at [facility] PRO REMOVAL ERUPTED TOOTH WITH ELEVATION OF MUCOPERIOSTEAL FLAP Bilateral 10/18/2020 SURGICAL EXTRACTIONS REQUIRING ELEVATION OF MUCOPERIOSTEAL FLAP AND REMOVAL OF BONE OR SECTION OF TOOTH (WRVU 1.09) performed by Shan Rivero MD at [facility] PRO REPLACEMENT/REVISION, CSF SHUNT Right 06/09/2023 REVISION OR REPLACEMENT CSF SHUNT (WRVU 11.43) performed by Rhoda Jimenez MD at [facility] OR PRO UNLISTED PROCEDURE NERVOUS SYSTEM Right 05/24/2022 EXPLORATION VENTRICULO-PERITONEAL SHUNT (WRVU 25.48) performed by Rhoda Jimenez MD at [facility] MA[facility] OR SHOULDER SURGERY ULNAR TUNNEL [...] 72 hours. No results for input(s): PHART, ZDI6ERC, PO2ART, KWE9RTD in the last 72 hours. Studies: CT [...] However with the presence of the remnant MEDICAL ASSISTANT PRN shunt catheter, there is risk of biofilm production and persistent infection without foreign body removal. The patient would need an internalized shunt in order to be able to leave the hospital. From my discussions with neurosurgery, it seems the best option at this time is creating a new MEDICAL ASSISTANT PRN shunt on the left side. However, ongoing intra-abdominal infection would be a contraindication for creating a new MEDICAL ASSISTANT PRN shunt. There is no urgency to addressing [...] If you have any questions, please page [phone]. Consult service will continue to follow along Vivian Lawson MD 06/18/2023 Acute Care Surgery Service p.[phone] Associated attestation - Ovidio Pack MD - 06/19/2023 2:49 PM EDT This patient was personally seen and examined on team rounds. I agree with the assessment and plan as discussed. Diagnoses and therapy were explained and all questions were answered. CT images reviewed Discussed with his mother at bedside Will plan for operative removal of the abdominal wall and peritoneal portions of MEDICAL ASSISTANT PRN shunt to removethe foreign body in attempt [...] PM 345/345-A 3 * Initial Assessments - Vito, Vishal Varghese RN - 06/18/2023 10:33 AM EDT Office [...] Yes ; Prescription Coverage: Yes [facility] [place] [facility] [address] [facility] [address] [facility] [address] Advance Care Planning: Attempt Cardiopulmonary Resuscitation - Inpatient <no information> -Advanced Directive: Other (Tracy Fregoso Relationship: Guardianship [phone] ) Current Functional Ability: Assistive Person Functional Status Prior to Admission: Independent Home Environment: Others in the home: parent(s). Current Living Arrangements: home/apartment/condo. Accessibility Concerns:Lives in a 3rd floor apartment with an elevator, Patient can also navigate stairs, he wears a CPAP at home, He lives with his mother... Current DME: respiratory supplies (CPAP at night) [address] [facility] [address] Social & Family Supports: All names listed below confirmed with patient as current and correct Extended Emergency Contact Information Primary Emergency Contact: Tracy Fregoso Address: [address] [place] [id number] [place] [address] Mobile Relation: Guardianship Secondary Emergency Contact: RICH FREGOSO Address: [address] Mobile Relation: Step parent Current Care [...] via car when medically ready. Registered Nurse Jalousies Installer / Radio Operator Ground will continue to follow patient???s progress and remain available if situation changes for coordination of care, psychosocial support and/or discharge planning. Office of Care Management Vishal Padron RN RN/CM - Cellphone: [phone] Pager: [phone] Covering Service RN/CM * Plan of Care [...] DISEASE CONSULT NOTE Reason for ID Consult: MEDICAL ASSISTANT PRN shunt w/abdominal fluid collection History of Present Illness: 52 y.o. 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 Aside from this, the remaining catheter are intact CT Head wo Contrast IMPRESSION Stable examination with no hydrocephalus or other acute abnormality. Diagnosis: Concerns for Intraabdominal infection in the setting of recent MEDICAL ASSISTANT PRN shunt revision Summary 52 y.o. 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 At this time will recommend [...] Ar Yuan MD Infectious Disease Fellow Pager [phone] 06/17/[address] Kelsey (attending addendum to follow) Associated attestation - Cl Kelsey MD - 06/17/2023 7:02 PM EDT I have seen and examined the patient and discussed the assessment and plan with the fellow. I reviewed the fellow's note and I agree with the documented findings and recommendations. Fortunately, it seems that the infection is limited to the abdomen and does not involve the CABLEMAN based on CSF fluid analysis. We recommend draining the abdominal fluid collection for diagnostic (please send for culture) and therapeutic purposes (drainage will likely expedite cure, which will allow for internalizatoin of the MEDICAL ASSISTANT PRN shunt). In the meantime, we recommend narrowing [...] to Home Health Outpatient Referral Routine S/P MEDICAL ASSISTANT PRN shunt Ordered: 06/30/2023 documented as of this [...] 5:1 8 PM EDT Replacement/Revision, Csf Shunt (48152) 06/29/2023 1:56 PM EDT hydrocephalus REVISION OR [...] 5:58 AM EDT DIFFERENTIAL, AUTOMATED Routine 06/28/19 5:58 AM EDT CBC (WITH DIFF) Routine [...] 4:15 AM EDT DIFFERENTIAL, AUTOMATED Routine 06/26/19 24 4:15 AM EDT CBC (WITH DIFF) Routine 06/26/2023 4:15 AM EDT BASIC METABOLIC PANEL Routine 06/26/2023 4:15 AM EDT HEMOGRAM Routine 06/23/2023 5:30 AM EDT DIFFERENTIAL, AUTOMATED Routine 06/23/19 24 5:30 AM EDT CBC (WITH DIFF) Routine [...] 2:22 AM EDT DIFFERENTIAL, AUTOMATED Routine 06/21/19 2:22 AM EDT CBC (WITH DIFF) Routine 06/21/2023 2:22 AM EDT PHOSPHORUS Routine 06/21/2023 2:22 AM EDT MAGNESIUM Routine 06/21/2023 2:22 AM EDT BASIC METABOLIC PANEL Routine 06/21/2023 2:22 AM EDT REMOVAL OF COMPLETE CSF SHUNT, W/O REPLACEMENT Routine 06/20/2023 2:34 PM EDT SURGICAL PATHOLOGY REPORT Routine 06/20/2023 2:24 PM EDT SPECIMEN TO PATHOLOGY Routine 06/20/2023 2:24 PM EDT HEMOGRAM Routine 06/20/2023 5:16 AM EDT DIFFERENTIAL, [...] DESC 1 STAT 06/16/2023 5:40 PM EDT CABLEMAN SHUNT CULTURE Routine 06/16/2023 5:4 0 PM [...] COUNT STAT 06/16/2023 1:4 9 PM EDT CABLEMAN SHUNT CULTURE Routine 06/16/2023 1:4 9 PM EDT PROTEIN LEVEL CSF STAT 06/16/2023 1:4 9 PM EDT GLUCOSE LEVEL CSF STAT 06/16/2023 1:4 9 PM EDT ABORH RECHECK STATUS Routine 06/16/2023 1:15 PM EDT BLOOD CULTURE STAT 06/16/2023 1:15 PM EDT HC PARTIAL THROMBOPLASTIN TIME STAT 06/16/2023 1:15 PM EDT PROTHROMBIN TIME STAT 06/16/2023 1:15 PM EDT TYPE AND SCREEN (MC/CGP/DULCE MARIA) STAT 06/16/2023 1:15 PM EDT BLOOD [...] 6:02 AM EDT) Neutrophil % 74.9 % [facility] Neutrophil Absolute 12.03(H) 1.70 - 6.10 x10(3)/mc L [facility] Lymph % 17.2 % [facility] Lymphocytes Abs 2.8 0.9 - 3.2 x10(3)/mc L [facility] Monocyte % 5.7 % [facility] Monocyte Abs 0.9 0.3 - 0.9 x10(3)/mc L [facility] Eos % 1.4 % [facility] Eosinophils Abs 0.2 0.0 - 0.4 x10(3)/mc L [facility] Basophil % 0.4 % [facility] Baso Absolute 0.1 0.0 - 0.1 x10(3)/mc L [facility] Immature Gran % 0.40 % [facility] Comment: Immature granulocytes(IG's)percentage and absolute count will include metamyelocytes, myelocytes, and promyelocytes. Blood smears from CBCs yielding IG's will be scanned manually for concordance. If this scan disagrees with the automated IG or if promyelocytes are noted, a manual differential will be performed. Immature Gran Absolute 0.06(H) 0.00 - 0.04 x10(3)/mc L [facility] Blood 06/30/2023 6:02 AM EDT 06/30/2023 6:18 AM EDT Narrative Resulting Agency Comment Spec In Lab Laila Ricci MD HEMATOLOGY ORDERABLE S [facility] [place] [address] * (ABNORMAL) Hemogram (06/30/2023 6:02 AM EDT) White Blood Cell 16.0(H) 4.0 - 9.5 x10(3)/mc L [facility] Red Blood Cell 5.79(H) 4.58 - 5.54 x10(6)/mc L [facility] Hemoglobin 17.1(H) 13.7 - 16.5 g/dL [facility] Hematocrit 49.7(H) 40.5 - 48.5 % [facility] Mean Cell Volume 85.8 82.9 - 93.1 fL [facility] Mean Cell Hemoglobin 29.5 27.5 - 32.1 pg [facility] Mean Cell Hemoglobin Concentration 34.4 32.0 - 35.7 g/dL [facility] Platelet 257 145 - 357 x10(3)/mc L [facility] RDW Standard Deviation 41.3 36.0 - 45.0 [facility] RDW coefficient of variation 13.3 11.4 - 13.8 % [facility] Mean Platelet Volume 9.1 7.6 - 12.9 fL [facility] NRBC% auto 0.0 % [facility] NRBC Absolute 0.000 0.000 - 0.000 x10(3)/mc L [facility] Blood 06/30/2023 6:02 AM EDT 06/30/2023 6:18 AM EDT Narrative Resulting Agency Comment Spec In Lab Laila Ricci MD HEMATOLOGY ORDERABLE S [facility] [place] [address] * (ABNORMAL) Basic Metabolic Panel (non-fasting) (06/30/2023 6:02 AM EDT) Glucose 116 65 - 199 mg/dL [facility] Comment:Diabetes: >=200 mg/d L plus symptoms Blood Urea Nitrogen 15 10 - 20 mg/dL [facility] Creatinine 1.36 0.80 - 1.50 mg/dL [facility] Sodium 138 135 - 145 mmol/L [facility] Potassium 4.1 3.5 - 5.0 mmol/L [facility] Comment: Please note: ??Patients with WBC >100,000 may have falsely elevated Potassium levels. ??For accurate Potassium quantification in these patients send serum separator tube (gold top) for subsequent determinations. ??Contact the Clinical Chemistry Laboratory if there are any questions. Chloride 107 98 - 107 mmol/L [facility] Carbon Dioxide 21(L) 22 - 31 mmol/L [facility] Anion Gap 10 5 - 15 mmol/L [facility] Calcium 9.4 8.5 - 10.5 mg/dL [facility] Est Glomerular Filtration Rate 63 >=60 mL/min/1. 73 m?? [facility] Comment: This patient's estimated [...] In Lab Rhoda Jimenez MD CHEMISTRY ORDERABLES [facility] [place] [address] * XR Shunt Series (06/29/2023 6:21 PM EDT) WORKSTATION ID [id number] RAD Anatomical Region Laterality Modality N/A Digital Radiogra phy Impressions 06/30/2023 9:07 AM EDT Replaced, intact right ventriculopleural drain catheter. Thank you for letting us participate in the care of this patient. ??If you are a health care provider and have any questions regarding this report, please contact the number below. ??For patients who have questions please contact the health adult caregiver that requested your imaging first. ? Electronically signed by: Emerita Bernstein MD, [facility] ([phone]), at 06/30/2023 9:07 AM Narrative 06/30/2023 9:07 [...] patients who have questions please contactthe health adult caregiver that requested your imaging first. Electronically signed by: Emerita Bernstein MD, [facility]([phone]), at 06/30/2023 9:07 AM Rhoda Jimenez MD IMG DX ORDERABLES * XR Chest One View (06/29/2023 5:18 PM EDT) WORKSTATION ID [id number] RAD Anatomical Region Laterality Modality Chest N/A Digital Radiogra phy Impressions 06/30/2023 8:41 AM EDT Ventriculopleural shunt catheter in place. No pneumothorax. Thank you for letting us participate in the care of this patient. ??If you are a health care provider and have any questions regarding this report, please contact the number below. ??For patients who have questions please contact the health adult caregiver that requested your imaging first. ? Electronically signed by: Chapin Lee MD, [facility] ??([phone]), at 06/30/2023 8:41 AM Narrative 06/30/2023 8:41 [...] patients who have questions please contactthe health adult caregiver that requested your imaging first. Rhoda Jimenez MD IMG DX ORDERABLES * (ABNORMAL) Differential, Automated (06/29/2023 3:26 AM EDT) Neutrophil % 62.0 % [facility] Neutrophil Absolute 7.70(H) 1.70 - 6.10 x10(3)/mc L [facility] Lymph % 29.5 % [facility] Lymphocytes Abs 3.7(H) 0.9 - 3.2 x10(3)/mc L [facility] Monocyte % 5.6 % [facility] Monocyte Abs 0.7 0.3 - 0.9 x10(3)/[facility] Eos % 1.9 % [facility] Eosinophils Abs 0.2 0.0 - 0.4 x10(3)/[facility] Basophil % 0.7 % [facility] Baso Absolute 0.1 0.0 - 0.1 x10(3)/[facility] Immature Gran % 0.30 % [facility] Comment: Immature granulocytes(IG's)percentage and absolute count will include metamyelocytes, myelocytes, and promyelocytes. Blood smears from CBCs yielding IG's will be scanned manually for concordance. If this scan disagrees with the automated IG or if promyelocytes are noted, a manual differential will be performed. Immature Gran Absolute 0.04 0.00 - 0.04 x10(3)/[facility] Blood 06/29/2023 3:26 AM EDT 06/29/2023 3:34 AM EDT Narrative Resulting Agency Comment Spec In Lab Claire DURHAM HEMATOLOGY ORDERABLE S [facility] [place] [address] * (ABNORMAL) Hemogram (06/29/2023 3:26 AM EDT) White Blood Cell 12.4(H) 4.0 - 9.5 x10(3)/[facility] Red Blood Cell 5.93(H) 4.58 - 5.54 x10(6)/[facility] Hemoglobin 17.4(H) 13.7 - 16.5 g/dL [facility] Hematocrit 51.4(H) 40.5 - 48.5 % [facility] Mean Cell Volume 86.7 82.9 - 93.1 fL [facility] Mean Cell Hemoglobin 29.3 27.5 - 32.1 pg [facility] Mean Cell Hemoglobin Concentration 33.9 32.0 - 35.7 g/dL [facility] Platelet 284 145 - 357 x10(3)/mc L [facility] RDW Standard Deviation 42.2 36.0 - 45.0 fL [facility] RDW coefficient of variation 13.3 11.4 - 13.8 % [facility] Mean Platelet Volume 8.7 7.6 - 12.9 fL [facility] NRBC% auto 0.0 % [facility] NRBC Absolute 0.000 0.000 - 0.000 x10(3)/mc L [facility] Blood 06/29/2023 3:26 AM EDT 06/29/2023 3:34 AM EDT Narrative Resulting Agency Comment Spec In Lab Claire DURHAM HEMATOLOGY ORDERABLE S Performing Organization Address City/State/[facility] Co de Phone Number [facility] [place] [address] * (ABNORMAL) Basic Metabolic Panel (non-fasting) (06/29/2023 3:26 AM EDT) Glucose 109 65 - 199 mg/dL [facility] Comment:Diabetes: >=200 mg/d L plus symptoms Blood Urea Nitrogen 19 10 - 20 mg/dL [facility] Creatinine 1.36 0.80 - 1.50 mg/dL [facility] Sodium 140 135 - 145 mmol/L [facility] Potassium 3.9 3.5 - 5.0 mmol/L [facility] Comment: Please note: ??Patients with WBC >100,000 may have falsely elevated Potassium levels. ??For accurate Potassium quantification in these patients send serum separator tube (gold top) for subsequent determinations. ??Contact the Clinical Chemistry Laboratory if there are any questions. Chloride 106 98 - 107 mmol/L [facility] Carbon Dioxide 21(L) 22 - 31 mmol/L [facility] Anion Gap 13 5 - 15 mmol/L [facility] Calcium 9.6 8.5 - 10.5 mg/dL [facility] Est Glomerular Filtration Rate 63 >=60 mL/min/1. 73 m?? [facility] Comment: This patient's estimated [...] In Lab Rhoda Jimenez MD CHEMISTRY ORDERABLES [facility] [place] [address] * Scan Doc: Implantable Devices (06/29/2023 12:00 AM EDT) Narrative 06/29/2023 12:00 AM EDT Ordered by an unspecified provider. Scanning Provider MEDIA MGR SCAN EXT O RDR/RSLT * CT Abdomen & Pelvis w Contrast (06/28/2023 9:54 AM EDT) WORKSTATION ID [id number] RAD Anatomical Region Laterality Modality Abdomen, Pelvis [...] who have questions please contact the health adult caregiver that requested your imaging first. ? Electronically signed by: Kandi Duarte MD, [facility] ([phone]), at 06/28/2023 10:35 AM Narrative 06/28/2023 10:35 [...] patients who have questions please contactthe health adult caregiver that requested your imaging first. Rhoda Jimenez MD IMG CT ORDERABLES * (ABNORMAL) Differential, Automated (06/28/2023 5:58 AM EDT) Neutrophil % 63.8 % [facility] Neutrophil Absolute 8.71(H) 1.70 - 6.10 x10(3)/mc L [facility] Lymph % 28.0 % [facility] Lymphocytes Abs 3.8(H) 0.9 - 3.2 x10(3)/ L [facility] Monocyte % 5.5 % [facility] Monocyte Abs 0.8 0.3 - 0.9 x10(3)/ L [facility] Eos % 1.5 % [facility] Eosinophils Abs 0.2 0.0 - 0.4 x10(3)/[facility] Basophil % 0.9 % [facility] Baso Absolute 0.1 0.0 - 0.1 x10(3)/[facility] Immature Gran % 0.30 % [facility] Comment: Immature granulocytes(IG's)percentage and absolute count will include metamyelocytes, myelocytes, and promyelocytes. Blood smears from CBCs yielding IG's will be scanned manually for concordance. If this scan disagrees with the automated IG or if promyelocytes are noted, a manual differential will be performed. Immature Gran Absolute 0.04 0.00 - 0.04 x10(3)/[facility] Blood 06/28/2023 5:58 AM EDT 06/28/2023 6:08 AM EDT Narrative Resulting Agency Comment Spec In Lab Claire DURHAM HEMATOLOGY ORDERAB LES Performing Organization Address City/State/[facility] Co de Phone Number [facility] [place] [address] * (ABNORMAL) Hemogram (06/28/2023 5:58 AM EDT) White Blood Cell 13.6(H) 4.0 - 9.5 x10(3)/[facility] Red Blood Cell 5.96(H) 4.58 - 5.54 x10(6)/ L [facility] Hemoglobin 18.1(H) 13.7 - 16.5 g/dL [facility] Hematocrit 52.0(H) 40.5 - 48.5 % [facility] Mean Cell Volume 87.2 82.9 - 93.1 fL [facility] Mean Cell Hemoglobin 30.4 27.5 - 32.1 pg [facility] Mean Cell Hemoglobin Concentration 34.8 32.0 - 35.7 g/dL [facility] Platelet 253 145 - 357 x10(3)/mc L [facility] RDW Standard Deviation 41.9 36.0 - 45.0 fL [facility] RDW coefficient of variation 13.2 11.4 - 13.8 % [facility] Mean Platelet Volume 8.7 7.6 - 12.9 fL [facility] NRBC% auto 0.0 % [facility] NRBC Absolute 0.000 0.000 - 0.000 x10(3)/mc L [facility] Blood 06/28/2023 5:58 AM EDT 06/28/2023 6:08 AM EDT Narrative Resulting Agency Comment Spec In Lab Claire DURHAM HEMATOLOGY ORDERAB LES [facility] [place] [address] * (ABNORMAL) Basic Metabolic Panel (non-fasting) (06/28/2023 5:58 AM EDT) Glucose 103 65 - 199 mg/dL [facility] Comment:Diabetes: >=200 mg/d L plus symptoms Blood Urea Nitrogen 19 10 - 20 mg/dL [facility] Creatinine 1.33 0.80 - 1.50 mg/dL [facility] Sodium 142 135 - 145 mmol/L [facility] Potassium 3.9 3.5 - 5.0 mmol/L [facility] Comment: Please note: ??Patients with WBC >100,000 may have falsely elevated Potassium levels. ??For accurate Potassium quantification in these patients send serum separator tube (gold top) for subsequent determinations. ??Contact the Clinical Chemistry Laboratory if there are any questions. Chloride 104 98 - 107 mmol/L [facility] Carbon Dioxide 22 22 - 31 mmol/L [facility] Anion Gap 16(H) 5 - 15 mmol/L [facility] Calcium 9.8 8.5 - 10.5 mg/dL [facility] Est Glomerular Filtration Rate 65 >=60 mL/min/1. 73 m?? [facility] Comment: This patient's estimated [...] In Lab Rhoda Jimenez MD CHEMISTRY ORDERABLES [facility] [place] [address] * Basic Metabolic Panel (non-fasting) (06/27/2023 9:59 PM EDT) Glucose 104 65 - 199 mg/dL [facility] Comment:Diabetes: >=200 mg/d L plus symptoms Blood Urea Nitrogen 17 10 - 20 mg/dL [facility] Creatinine 1.34 0.80 - 1.50 mg/dL [facility] Sodium 140 135 - 145 mmol/L [facility] Potassium 3.9 3.5 - 5.0 mmol/L [facility] Comment: Please note: ??Patients with WBC >100,000 may have falsely elevated Potassium levels. ??For accurate Potassium quantification in these patients send serum separator tube (gold top) for subsequent determinations. ??Contact the Clinical Chemistry Laboratory if there are any questions. Chloride 103 98 - 107 mmol/L [facility] Carbon Dioxide 22 22 - 31 mmol/L [facility] Anion Gap 15 5 - 15 mmol/L [facility] Calcium 9.9 8.5 - 10.5 mg/dL [facility] Est Glomerular Filtration Rate 65 >=60 mL/min/1. 73 m?? [facility] Comment: This patient's estimated [...] Jimenez MD CHEMISTRY ORDERABLES Performing Organization Address [facility] Co de Phone Number [facility] [place] [address] * Magnesium (06/27/2023 9:59 PM EDT) Magnesium 0.93 0.69 - 1.07 mmol/L [facility] Blood 06/27/2023 9:59 PM EDT 06/27/2023 10:07 PM EDT Narrative Resulting Agency Comment Spec In Lab Rhoda Jimenez MD CHEMISTRY ORDERABLES Performing Organization Address [facility]/ZIP Co de Phone Number [facility] [place] [address] * Phosphorus (06/27/2023 9:59 PM EDT) Phosphorus 3.9 2.5 - 4.5 mg/dL [facility] Blood 06/27/2023 9:59 PM EDT 06/27/2023 10:07 PM EDT Narrative Resulting Agency Comment Spec In Lab Rhoda Jimenez MD CHEMISTRY ORDERABLES [facility] [place] [address] * XR Abdomen Flat & Upright (06/27/2023 8:13 PM EDT) [facility] [employer] WORKSTATION ID [id number] RAD Anatomical Region Laterality Modality Abdomen N/A [...] who have questions please contact the health adult caregiver that requested your imaging first. ? Narrative 06/27/2023 8:45 PM EDT EXAMINATION: XR [...] patients who have questions please contactthe health adult caregiver that requested your imaging first. Electronically signed by: Kandi Duarte MD, [facility]([phone]), at 06/27/2023 8:45 PM Rhoda Jimenez MD IMG DX ORDERABLES * XR Abdomen 1 view (Generic) (06/27/2023 7:16 PM EDT) WORKSTATION ID [id number] RAD Anatomical Region Laterality Modality Abdomen N/A [...] who have questions please contact the health adult caregiver that requested your imaging first. ? Electronically signed by: Kandi Duarte MD, [facility] ([phone]), at 06/27/2023 7:36 PM Narrative 06/27/2023 7:36 PM EDT EXAMINATION: XR ABDOMEN 1 VIEW (GENERIC) CLINICAL HISTORY: Please obtain upright. Assess for intra-abdominal pathology with recent intra-abdominal infection and new emesis/bloating. TECHNIQUE: AP abdominal radiograph (2 images) COMPARISON: CT abdomen pelvis 06/16/2023 FINDINGS: The lower abdomen and pelvis are excluded from the [id number]. Imaged bowel loops are nondilated. No free [...] abdomen and pelvis are excluded from the [id number]. Imagedbowel loops are nondilated. No free air. [...] patients who have questions please contactthe health adult caregiver that requested your imaging first. Electronically signed by: Kandi Duarte MD, [facility]([phone]), at 06/27/2023 7:36 PM Rhoda Jimenez MD IMG DX ORDERABLES * (ABNORMAL) Differential, Automated (06/26/2023 4:15 AM EDT) Neutrophil % 70.8 % [facility] Neutrophil Absolute 7.88(H) 1.70 - 6.10 x10(3)/mc L [facility] Lymph % 21.7 % [facility] Lymphocytes Abs 2.4 0.9 - 3.2 x10(3)/mc L [facility] Monocyte % 4.9 % [facility] Monocyte Abs 0.5 0.3 - 0.9 x10(3)/mc L [facility] Eos % 1.5 % [facility] Eosinophils Abs 0.2 0.0 - 0.4 x10(3)/mc L [facility] Basophil % 0.8 % [facility] Baso Absolute 0.1 0.0 - 0.1 x10(3)/mc L [facility] Immature Gran % 0.30 % [facility] Comment: Immature granulocytes(IG's)percentage and absolute count will include metamyelocytes, myelocytes, and promyelocytes. Blood smears from CBCs yielding IG's will be scanned manually for concordance. If this scan disagrees with the automated IG or if promyelocytes are noted, a manual differential will be performed. Immature Gran Absolute 0.03 0.00 - 0.04 x10(3)/mc L [facility] Blood 06/26/2023 4:15 AM EDT 06/26/2023 4:24 AM EDT Narrative Resulting Agency Comment Spec In Lab Claire DURHAM HEMATOLOGY ORDERAB LES [facility] [place] [address] * (ABNORMAL) Hemogram (06/26/2023 4:15 AM EDT) White Blood Cell 11.1(H) 4.0 - 9.5 x10(3)/mc L [facility] Red Blood Cell 5.97(H) 4.58 - 5.54 x10(6)/mc L [facility] Hemoglobin 17.8(H) 13.7 - 16.5 g/dL [facility] Hematocrit 51.4(H) 40.5 - 48.5 % [facility] Mean Cell Volume 86.1 82.9 - 93.1 [facility] Mean Cell Hemoglobin 29.8 27.5 - 32.1 pg [facility] Mean Cell Hemoglobin Concentration 34.6 32.0 - 35.7 g/dL [facility] Platelet 269 145 - 357 x10(3)/mc L [facility] RDW Standard Deviation 41.4 36.0 - 45.0 [facility] RDW coefficient of variation 13.3 11.4 - 13.8 % [facility] Mean Platelet Volume 8.6 7.6 - 12.9 [facility] NRBC% auto 0.0 % [facility] NRBC Absolute 0.000 0.000 - 0.000 x10(3)/ L [facility] Blood 06/26/2023 4:15 AM EDT 06/26/2023 4:24 AM EDT Narrative Resulting Agency Comment Spec In Lab Claire DURHAM HEMATOLOGY ORDERAB LES [facility] [place] [address] * (ABNORMAL) Basic Metabolic Panel (non-fasting) (06/26/2023 4:15 AM EDT) Glucose 114 65 - 199 mg/dL [facility] Comment:Diabetes: >=200 mg/d L plus symptoms Blood Urea Nitrogen 15 10 - 20 mg/dL [facility] Creatinine 1.17 0.80 - 1.50 mg/dL [facility] Sodium 139 135 - 145 mmol/L [facility] Potassium 4.1 3.5 - 5.0 mmol/L [facility] Comment: Please note: ??Patients with WBC >100,000 may have falsely elevated Potassium levels. ??For accurate Potassium quantification in these patients send serum separator tube (gold top) for subsequent determinations. ??Contact the Clinical Chemistry Laboratory if there are any questions. Chloride 105 98 - 107 mmol/L [facility] Carbon Dioxide 20(L) 22 - 31 mmol/L [facility] Anion Gap 14 5 - 15 mmol/L [facility] Calcium 9.6 8.5 - 10.5 mg/dL [facility] Est Glomerular Filtration Rate 76 >=60 mL/min/1. 73 m?? [facility] Comment: This patient's estimated [...] Jimenez MD CHEMISTRY ORDERABLES Performing Organization Address City/[facility]/ZIP Co de Phone Number [facility] [place] [address] * (ABNORMAL) Differential, Automated (06/23/2023 5:30 AM EDT) Neutrophil % 63.0 % [facility] Neutrophil Absolute 6.55(H) 1.70 - 6.10 x10(3)/mc L [facility] Lymph % 29.2 % [facility] Lymphocytes Abs 3.0 0.9 - 3.2 x10(3)/mc L [facility] Monocyte % 4.3 % [facility] Monocyte Abs 0.4 0.3 - 0.9 x10(3)/ L [facility] Eos % 2.4 % [facility] Eosinophils Abs 0.2 0.0 - 0.4 x10(3)/ L [facility] Basophil % 0.9 % [facility] Baso Absolute 0.1 0.0 - 0.1 x10(3)/mc L [facility] Immature Gran % 0.20 % [facility] Comment: Immature granulocytes(IG's)percentage and absolute count will include metamyelocytes, myelocytes, and promyelocytes. Blood smears from CBCs yielding IG's will be scanned manually for concordance. If this scan disagrees with the automated IG or if promyelocytes are noted, a manual differential will be performed. Immature Gran Absolute 0.02 0.00 - 0.04 x10(3)/mc L [facility] Blood 06/23/2023 5:30 AM EDT 06/23/2023 5:36 AM EDT Narrative Resulting Agency Comment Spec In Lab Macie DURHAM HEMATOLOGY ORDAngeles MCDUFFIE Performing Organization Address City/[facility]/ZIP Co de Phone Number [facility] [place] [address] * (ABNORMAL) Hemogram (06/23/2023 5:30 AM EDT) White Blood Cell 10.4(H) 4.0 - 9.5 x10(3)/ L [facility] Red Blood Cell 5.81(H) 4.58 - 5.54 x10(6)/ L [facility] Hemoglobin 17.5(H) 13.7 - 16.5 g/dL [facility] Hematocrit 50.2(H) 40.5 - 48.5 % [facility] Mean Cell Volume 86.4 82.9 - 93.1 fL [facility] Mean Cell Hemoglobin 30.1 27.5 - 32.1 pg [facility] Mean Cell Hemoglobin Concentration 34.9 32.0 - 35.7 g/dL [facility] Platelet 231 145 - 357 x10(3)/[facility] RDW Standard Deviation 41.4 36.0 - 45.0 [facility] RDW coefficient of variation 13.2 11.4 - 13.8 % [facility] Mean Platelet Volume 8.5 7.6 - 12.9 fL [facility] NRBC% auto 0.0 % [facility] NRBC Absolute 0.000 0.000 - 0.000 x10(3)/[facility] Blood 06/23/2023 5:30 AM EDT 06/23/2023 5:36 AM EDT Narrative Resulting Agency Comment Spec In Lab Macie DURHAM HEMATOLOGY TRIP MCDUFFIE [facility] [place] [address] * Phosphorus (06/23/2023 5:28 AM EDT) Phosphorus 2.9 2.5 - 4.5 mg/dL [facility] Blood 06/23/2023 5:28 AM EDT 06/23/2023 5:36 AM EDT Narrative Resulting Agency Comment Spec In Lab Dennis Castillo MD CHEMISTRY ORDERABLES Performing Organization Address City/[facility]/ZIP Co de Phone Number [facility] [place] [address] * Magnesium (06/23/2023 5:28 AM EDT) Magnesium 0.94 0.69 - 1.07 mmol/L [facility] Blood 06/23/2023 5:28 AM EDT 06/23/2023 5:36 AM EDT Narrative Resulting Agency Comment Spec In Lab Dennis Casitllo MD CHEMISTRY ORDERABLES Performing Organization Address [facility] Co de Phone Number [facility] [place] [address] * (ABNORMAL) Basic Metabolic Panel (non-fasting) (06/23/2023 5:28 AM EDT) Glucose 111 65 - 199 mg/dL [facility] Comment:Diabetes: >=200 mg/d L plus symptoms Blood Urea Nitrogen 18 10 - 20 mg/dL [facility] Creatinine 1.22 0.80 - 1.50 mg/dL [facility] Sodium 140 135 - 145 mmol/L [facility] Potassium 4.1 3.5 - 5.0 mmol/L [facility] Comment: Please note: ??Patients with WBC >100,000 may have falsely elevated Potassium levels. ??For accurate Potassium quantification in these patients send serum separator tube (gold top) for subsequent determinations. ??Contact the Clinical Chemistry Laboratory if there are any questions. Chloride 106 98 - 107 mmol/L [facility] Carbon Dioxide 20(L) 22 - 31 mmol/L [facility] Anion Gap 14 5 - 15 mmol/L [facility] Calcium 9.3 8.5 - 10.5 mg/dL [facility] Est Glomerular Filtration Rate 72 >=60 mL/min/1. 73 m?? [facility] Comment: This patient's estimated [...] Castillo MD CHEMISTRY ORDERABLES Performing Organization Address City/State/[facility] Co de Phone Number [facility] [place] [address] * (ABNORMAL) Differential, Automated (06/22/2023 4:20 AM EDT) Neutrophil % 61.6 % [facility] Neutrophil Absolute 6.81(H) 1.70 - 6.10 x10(3)/mc L [facility] Lymph % 29.7 % [facility] Lymphocytes Abs 3.3(H) 0.9 - 3.2 x10(3)/mc L [facility] Monocyte % 5.2 % [facility] Monocyte Abs 0.6 0.3 - 0.9 x10(3)/mc L [facility] Eos % 2.5 % [facility] Eosinophils Abs 0.3 0.0 - 0.4 x10(3)/mc L [facility] Basophil % 0.8 % [facility] Baso Absolute 0.1 0.0 - 0.1 x10(3)/mc L [facility] Immature Gran % 0.20 % [facility] Comment: Immature granulocytes(IG's)percentage and absolute count will include metamyelocytes, myelocytes, and promyelocytes. Blood smears from CBCs yielding IG's will be scanned manually for concordance. If this scan disagrees with the automated IG or if promyelocytes are noted, a manual differential will be performed. Immature Gran Absolute 0.02 0.00 - 0.04 x10(3)/[facility] Blood 06/22/2023 4:20 AM EDT 06/22/2023 4:28 AM EDT Narrative Resulting Agency Comment Spec In Lab Macie DURHAM HEMATOLOGY TRIP MCDUFFIE [facility] [place] [address] * (ABNORMAL) Hemogram (06/22/2023 4:20 AM EDT) White Blood Cell 11.1(H) 4.0 - 9.5 x10(3)/[facility] Red Blood Cell 5.76(H) 4.58 - 5.54 x10(6)/[facility] Hemoglobin 17.3(H) 13.7 - 16.5 g/dL [facility] Hematocrit 49.8(H) 40.5 - 48.5 % [facility] Mean Cell Volume 86.5 82.9 - 93.1 fL [facility] Mean Cell Hemoglobin 30.0 27.5 - 32.1 pg [facility] Mean Cell Hemoglobin Concentration 34.7 32.0 - 35.7 g/dL [facility] Platelet 233 145 - 357 x10(3)/[facility] RDW Standard Deviation 42.1 36.0 - 45.0 [facility] RDW coefficient of variation 13.2 11.4 - 13.8 % [facility] Mean Platelet Volume 8.8 7.6 - 12.9 fL [facility] NRBC% auto 0.0 % [facility] NRBC Absolute 0.000 0.000 - 0.000 x10(3)/mc L [facility] Blood 06/22/2023 4:20 AM EDT 06/22/2023 4:28 AM EDT Narrative Resulting Agency Comment Spec In Lab Macie DURHAM HEMATOLOGY TRIP MCDUFFIE [facility] [place] [address] * (ABNORMAL) Basic Metabolic Panel (non-fasting) (06/22/2023 4:10 AM EDT) Glucose 109 65 - 199 mg/dL [facility] Comment:Diabetes: >=200 mg/d L plus symptoms Blood Urea Nitrogen 19 10 - 20 mg/dL [facility] Creatinine 1.21 0.80 - 1.50 mg/dL [facility] Sodium 135 135 - 145 mmol/L [facility] Potassium 4.1 3.5 - 5.0 mmol/L [facility] Comment: Please note: ??Patients with WBC >100,000 may have falsely elevated Potassium levels. ??For accurate Potassium quantification in these patients send serum separator tube (gold top) for subsequent determinations. ??Contact the Clinical Chemistry Laboratory if there are any questions. Chloride 103 98 - 107 mmol/L [facility] Carbon Dioxide 20(L) 22 - 31 mmol/L [facility] Anion Gap 12 5 - 15 mmol/L [facility] Calcium 9.2 8.5 - 10.5 mg/dL [facility] Est Glomerular Filtration Rate 73 >=60 mL/min/1. 73 m?? [facility] Comment: This patient's estimated [...] In Lab Dennis Castillo MD CHEMISTRY ORDERABLES [facility] [place] [address] * Phosphorus (06/22/2023 3:10 AM EDT) Phosphorus 3.1 2.5 - 4.5 mg/dL [facility] Blood 06/22/2023 3:10 AM EDT 06/22/2023 3:18 AM EDT Narrative Resulting Agency Comment Spec In Lab Dennis Castillo MD CHEMISTRY ORDERABLES Performing Organization Address City/[facility]/ZIP Co de Phone Number [facility] [place] [address] * Magnesium (06/22/2023 3:10 AM EDT) Magnesium 0.91 0.69 - 1.07 mmol/L [facility] Blood 06/22/2023 3:10 AM EDT 06/22/2023 3:18 AM EDT Narrative Resulting Agency Comment Spec In Lab Dennis Castillo MD CHEMISTRY ORDERABLES Performing Organization Address City/[facility]/ZIP Co de Phone Number [facility] [place] [address] * (ABNORMAL) Basic Metabolic Panel (non-fasting) (06/22/2023 3:10 AM EDT) Glucose 106 65 - 199 mg/dL [facility] Comment:Diabetes: >=200 mg/d L plus symptoms Blood Urea Nitrogen 18 10 - 20 mg/dL [facility] Creatinine 1.21 0.80 - 1.50 mg/dL [facility] Sodium 136 135 - 145 mmol/L [facility] Potassium 4.2 3.5 - 5.0 mmol/L [facility] Comment: Please note: ??Patients with WBC >100,000 may have falsely elevated Potassium levels. ??For accurate Potassium quantification in these patients send serum separator tube (gold top) for subsequent determinations. ??Contact the Clinical Chemistry Laboratory if there are any questions. Chloride 104 98 - 107 mmol/L [facility] Carbon Dioxide 20(L) 22 - 31 mmol/L [facility] Anion Gap 12 5 - 15 mmol/L [facility] Calcium 9.2 8.5 - 10.5 mg/dL [facility] Est Glomerular Filtration Rate 73 >=60 mL/min/1. 73 m?? [facility] Comment: This patient's estimated [...] In Lab Dennis Castillo MD CHEMISTRY ORDERABLES [facility] [place] [address] * (ABNORMAL) Differential, Automated (06/21/2023 2:22 AM EDT) Neutrophil % 64.1 % [facility] Neutrophil Absolute 6.59(H) 1.70 - 6.10 x10(3)/[facility] Lymph % 28.2 % [facility] Lymphocytes Abs 2.9 0.9 - 3.2 x10(3)/[facility] Monocyte % 5.2 % [facility] Monocyte Abs 0.5 0.3 - 0.9 x10(3)/[facility] Eos % 1.6 % [facility] Eosinophils Abs 0.2 0.0 - 0.4 x10(3)/[facility] Basophil % 0.6 % [facility] Baso Absolute 0.1 0.0 - 0.1 x10(3)/[facility] Immature Gran % 0.30 % [facility] Comment: Immature granulocytes(IG's)percentage and absolute count will include metamyelocytes, myelocytes, and promyelocytes. Blood smears from CBCs yielding IG's will be scanned manually for concordance. If this scan disagrees with the automated IG or if promyelocytes are noted, a manual differential will be performed. Immature Gran Absolute 0.03 0.00 - 0.04 x10(3)/[facility] Blood 06/21/2023 2:22 AM EDT 06/21/2023 2:33 AM EDT Narrative Resulting Agency Comment Spec In Lab Macie DURHAM HEMATOLOGY TRIP MCDUFFIE [facility] [place] [address] * (ABNORMAL) Hemogram (06/21/2023 2:22 AM EDT) White Blood Cell 10.3(H) 4.0 - 9.5 x10(3)/[facility] Red Blood Cell 5.92(H) 4.58 - 5.54 x10(6)/[facility] Hemoglobin 17.8(H) 13.7 - 16.5 g/dL [facility] Hematocrit 51.9(H) 40.5 - 48.5 % [facility] Mean Cell Volume 87.7 82.9 - 93.1 fL [facility] Mean Cell Hemoglobin 30.1 27.5 - 32.1 pg [facility] Mean Cell Hemoglobin Concentration 34.3 32.0 - 35.7 g/dL [facility] Platelet 244 145 - 357 x10(3)/mc L [facility] RDW Standard Deviation 42.8 36.0 - 45.0 [facility] RDW coefficient of variation 13.2 11.4 - 13.8 % [facility] Mean Platelet Volume 8.7 7.6 - 12.9 [facility] NRBC% auto 0.0 % [facility] NRBC Absolute 0.000 0.000 - 0.000 x10(3)/mc L [facility] Blood 06/21/2023 2:22 AM EDT 06/21/2023 2:33 AM EDT Narrative Resulting Agency Comment Spec In Lab Macie DURHAM HEMATOLOGY ORDE RETA Performing Organization Address City/[facility]/ZIP Co de Phone Number [facility] [place] [address] * Phosphorus (06/21/2023 2:22 AM EDT) Phosphorus 3.6 2.5 - 4.5 mg/dL [facility] Blood 06/21/2023 2:22 AM EDT 06/21/2023 2:33 AM EDT Narrative Resulting Agency Comment Spec In Lab Dennis Castillo MD CHEMISTRY ORDERABLES Performing Organization Address City/[facility]/ZIP Co de Phone Number [facility] [place] [address] * Magnesium (06/21/2023 2:22 AM EDT) Magnesium 0.99 0.69 - 1.07 mmol/L [facility] Blood 06/21/2023 2:22 AM EDT 06/21/2023 2:33 AM EDT Narrative Resulting Agency Comment Spec In Lab Dennis Castillo MD CHEMISTRY ORDERABLES [facility] [place] [address] * (ABNORMAL) Basic Metabolic Panel (non-fasting) (06/21/2023 2:22 AM EDT) Glucose 101 65 - 199 mg/dL [facility] Comment:Diabetes: >=200 mg/d L plus symptoms Blood Urea Nitrogen 17 10 - 20 mg/dL [facility] Creatinine 1.16 0.80 - 1.50 mg/dL [facility] Sodium 137 135 - 145 mmol/L [facility] Potassium 4.2 3.5 - 5.0 mmol/L [facility] Comment: Please note: ??Patients with WBC >100,000 may have falsely elevated Potassium levels. ??For accurate Potassium quantification in these patients send serum separator tube (gold top) for subsequent determinations. ??Contact the Clinical Chemistry Laboratory if there are any questions. Chloride 104 98 - 107 mmol/L [facility] Carbon Dioxide 20(L) 22 - 31 mmol/L [facility] Anion Gap 13 5 - 15 mmol/L [facility] Calcium 9.2 8.5 - 10.5 mg/dL [facility] Est Glomerular Filtration Rate 77 >=60 mL/min/1. 73 m?? [facility] Comment: This patient's estimated [...] In Lab Dennis Castillo MD CHEMISTRY ORDERABLES [facility] [place] [id number] * Surgical Pathology Report (06/20/2023 2:24 PM EDT) Final Diagnosis [id number] ? Location: [facility]; [facility]; A The signing pathologist has (i) examined the relevant preparation(s) for the specimen(s) and (ii) rendered or confirmed the diagnosis(es). . ?Surgical Pathology DIAGNOSIS A - Explanted MEDICAL ASSISTANT PRN shunt catheter and attached soft tissue, excision: - Catheter identified (gross examination) - Associated dense fibrous connective tissue with calcifications Electronically signed by: ?Tatiana LEE, PhD, Russell Gilmore Verified: ??07/01/2023 13:52 ??Dermatopatholog ist, Bone & Soft Tissue Pathologist Performed at: ??-[facility] [place], [place] [address] [employer]oth Bleaching Range Operator Chief: Jayjay Covarrubias MD, FCAP, ??CLIA Certificate: [id number] SPECIMEN(S) SUBMITTED A - explanted MEDICAL ASSISTANT PRN shunt catheter, excision (1) CLINICAL INFORMATION MEDICAL ASSISTANT PRN shunt revision SPECIMEN PROCESSING A - Labeled/Fixative: Explanted MEDICAL ASSISTANT PRN shunt catheter, fresh. Quantity/Size: Four, ranging from [...] labeled A1. ??shb 07/01/2023 1:52 PM EDT [facility] FOREIGN BODY / Unknown 06/20/2023 2:24 PM EDT 06/20/2023 2:24 PM EDT Arely Murray MD PATHOLOGY/CYTOLOGY O RDERABLES Performing Organization Address City/[facility]/ZIP Co de Phone Number [facility] [place] [address] * Specimen to Pathology (06/20/2023 2:24 PM EDT) AP Specimen 06/20/2023 2:24 PM EDT 06/20/2023 2:24 PM EDT Narrative [facility] - 06/20/2023 2:24 PM EDT Specimen requisition ordered. ??Separate Pathology report to follow Rhoda Jimenez MD PATHOLOGY/CYTOLOGY O RDERABLES Performing Organization Address City/[facility]/ZIP Co de Phone Number [facility] [place] [address] * (ABNORMAL) Differential, Automated (06/20/2023 5:16 AM EDT) Neutrophil % 60.4 % [facility] Neutrophil Absolute 6.58(H) 1.70 - 6.10 x10(3)/mc L [facility] Lymph % 31.7 % [facility] Lymphocytes Abs 3.4(H) 0.9 - 3.2 x10(3)/mc L [facility] Monocyte % 5.2 % [facility] Monocyte Abs 0.6 0.3 - 0.9 x10(3)/mc L [facility] Eos % 1.7 % [facility] Eosinophils Abs 0.2 0.0 - 0.4 x10(3)/[facility] Basophil % 0.6 % [facility] Baso Absolute 0.1 0.0 - 0.1 x10(3)/[facility] Immature Gran % 0.40 % [facility] Comment: Immature granulocytes(IG's)percentage and absolute count will include metamyelocytes, myelocytes, and promyelocytes. Blood smears from CBCs yielding IG's will be scanned manually for concordance. If this scan disagrees with the automated IG or if promyelocytes are noted, a manual differential will be performed. Immature Gran Absolute 0.04 0.00 - 0.04 x10(3)/[facility] Blood 06/20/2023 5:16 AM EDT 06/20/2023 5:23 AM EDT Narrative Resulting Agency Comment Spec In Lab Macie DURHAM HEMATOLOGY TRIP MCDUFFIE [facility] [place] [address] * (ABNORMAL) Hemogram (06/20/2023 5:16 AM EDT) White Blood Cell 10.9(H) 4.0 - 9.5 x10(3)/[facility] Red Blood Cell 5.93(H) 4.58 - 5.54 x10(6)/[facility] Hemoglobin 17.6(H) 13.7 - 16.5 g/dL [facility] Hematocrit 51.5(H) 40.5 - 48.5 % [facility] Mean Cell Volume 86.8 82.9 - 93.1 fL [facility] Mean Cell Hemoglobin 29.7 27.5 - 32.1 pg [facility] Mean Cell Hemoglobin Concentration 34.2 32.0 - 35.7 g/dL [facility] Platelet 253 145 - 357 x10(3)/mc L [facility] RDW Standard Deviation 42.1 36.0 - 45.0 fL [facility] RDW coefficient of variation 13.2 11.4 - 13.8 % [facility] Mean Platelet Volume 8.7 7.6 - 12.9 fL [facility] NRBC% auto 0.0 % [facility] NRBC Absolute 0.000 0.000 - 0.000 x10(3)/mc L [facility] Blood 06/20/2023 5:16 AM EDT 06/20/2023 5:23 AM EDT Narrative Resulting Agency Comment Spec In Lab Macie DURHAM HEMATOLOGY ORDE RABLES Performing Organization Address [facility]/[place] [address] * Phosphorus (06/20/2023 5:15 AM EDT) Phosphorus 3.2 2.5 - 4.5 mg/dL [facility] Blood 06/20/2023 5:15 AM EDT 06/20/2023 5:23 AM EDT Narrative Resulting Agency Comment Spec In Lab Dennis Castillo MD CHEMISTRY ORDERABLES Performing Organization Address City/[facility]/ZIP Co de Phone Number [facility] [place] [address] * Magnesium (06/20/2023 5:15 AM EDT) Magnesium 0.99 0.69 - 1.07 mmol/L [facility] Blood 06/20/2023 5:15 AM EDT 06/20/2023 5:23 AM EDT Narrative Resulting Agency Comment Spec In Lab Dennis Castillo MD CHEMISTRY ORDERABLES Performing Organization Address City/[facility]/ZIP Co de Phone Number [facility] [place] [address] * (ABNORMAL) Basic Metabolic Panel (non-fasting) (06/20/2023 5:15 AM EDT) Glucose 109 65 - 199 mg/dL [facility] Comment:Diabetes: >=200 mg/d L plus symptoms Blood Urea Nitrogen 17 10 - 20 mg/dL [facility] Creatinine 1.11 0.80 - 1.50 mg/dL [facility] Sodium 138 135 - 145 mmol/L [facility] Potassium 3.9 3.5 - 5.0 mmol/L [facility] Comment: Please note: ??Patients with WBC >100,000 may have falsely elevated Potassium levels. ??For accurate Potassium quantification in these patients send serum separator tube (gold top) for subsequent determinations. ??Contact the Clinical Chemistry Laboratory if there are any questions. Chloride 104 98 - 107 mmol/L [facility] Carbon Dioxide 20(L) 22 - 31 mmol/L [facility] Anion Gap 14 5 - 15 mmol/L [facility] Calcium 9.6 8.5 - 10.5 mg/dL [facility] Est Glomerular Filtration Rate 81 >=60 mL/min/1. 73 m?? [facility] Comment: This patient's estimated [...] In Lab Dennis Castillo MD CHEMISTRY ORDERABLES [facility] [place] [address] * Vancomycin Level, Random (06/20/2023 5:15 AM EDT) Pathologist [facility] Vancomycin, Random 11.0 mg/L [facility] Comment: This level is for determination of the patient's vancomycin sdfw-vutfn-hcp-curve (AUC) value. Contact the inpatient pharmacy for interpretation. Blood 06/20/2023 5:15 AM EDT 06/20/2023 5:23 AM EDT Rhoda Jimenez MD CHEMISTRY ORDERABLES Performing Organization Address [facility] de Phone Number [facility] [place] [address] * EKG 12 Lead (06/19/2023 2:04 PM EDT) Pathologist [facility] Ventricular rate 77 BPM MUSE SYSTEM Atrial Rate 77 BPM MUSE SYSTEM P-R Interval 124 ms MUSE SYSTEM QRS Duration 74 ms MUSE SYSTEM Q-T Interval 240 ms MUSE SYSTEM QTC Calculated (Bezet) 271 ms MUSE SYSTEM Calculated P [place] 30 degrees MUSE SYSTEM Calculated R [place] 8 degrees MUSE SYSTEM Calculated T [place] -47 degrees MUSE SYSTEM INTERPRETATION Normal sinus rhythm Nonspecific ST and T wave abnormality Abnormal ECG When compared with ECG of 23-MAR-2019 16:17, Nonspecific T wave abnormality, worse in Inferior leads Nonspecific T wave abnormality now evident in Anterolateral leads QT has shortened Confirmed by MD Martinez Katharine ([id number]) on 06/22/2023 6:25:56 AM MUSE SYSTEM 06/19/2023 2:04 PM EDT 06/22/2023 6:25 AM EDT Andrew Laws APRN ECG ORDERABLES Performing Organization Address [facility] Co de Phone Number MUSE SYSTEM * (ABNORMAL) Differential, Automated (06/19/2023 3:30 AM EDT) Neutrophil % 60.2 % [facility] Neutrophil Absolute 6.17(H) 1.70 - 6.10 x10(3)/[facility] Lymph % 32.0 % [facility] Lymphocytes Abs 3.3(H) 0.9 - 3.2 x10(3)/[facility] Monocyte % 5.2 % [facility] Monocyte Abs 0.5 0.3 - 0.9 x10(3)/[facility] Eos % 1.7 % [facility] Eosinophils Abs 0.2 0.0 - 0.4 x10(3)/[facility] Basophil % 0.6 % [facility] Baso Absolute 0.1 0.0 - 0.1 x10(3)/[facility] Immature Gran % 0.30 % [facility] Comment: Immature granulocytes(IG's)percentage and absolute count will include metamyelocytes, myelocytes, and promyelocytes. Blood smears from CBCs yielding IG's will be scanned manually for concordance. If this scan disagrees with the automated IG or if promyelocytes are noted, a manual differential will be performed. Immature Gran Absolute 0.03 0.00 - 0.04 x10(3)/[facility] Blood 06/19/2023 3:30 AM EDT 06/19/2023 3:39 AM EDT Narrative Resulting Agency Comment Spec In Lab Macie DURHAM HEMATOLOGY TRIP MCDUFFIE [facility] [place] [address] * (ABNORMAL) Hemogram (06/19/2023 3:30 AM EDT) White Blood Cell 10.2(H) 4.0 - 9.5 x10(3)/[facility] Red Blood Cell 5.43 4.58 - 5.54 x10(6)/[facility] Hemoglobin 16.5 13.7 - 16.5 g/dL [facility] Hematocrit 47.6 40.5 - 48.5 % [facility] Mean Cell Volume 87.7 82.9 - 93.1 fL [facility] Mean Cell Hemoglobin 30.4 27.5 - 32.1 pg [facility] Mean Cell Hemoglobin Concentration 34.7 32.0 - 35.7 g/dL [facility] Platelet 214 145 - 357 x10(3)/mc L [facility] RDW Standard Deviation 43.1 36.0 - 45.0 [facility] RDW coefficient of variation 13.4 11.4 - 13.8 % [facility] Mean Platelet Volume 8.9 7.6 - 12.9 [facility] NRBC% auto 0.0 % [facility] NRBC Absolute 0.000 0.000 - 0.000 x10(3)/mc L [facility] Blood 06/19/2023 3:30 AM EDT 06/19/2023 3:39 AM EDT Narrative Resulting Agency Comment Spec In Lab Macie DURHAM HEMATOLOGY TRIP MCDUFFIE Performing Organization Address City/[facility]/ZIP Co de Phone Number [facility] [place] [address] * Phosphorus (06/19/2023 3:20 AM EDT) Phosphorus 2.8 2.5 - 4.5 mg/dL [facility] Blood 06/19/2023 3:20 AM EDT 06/19/2023 3:39 AM EDT Narrative Resulting Agency Comment Spec In Lab Dennis Castillo MD CHEMISTRY ORDERABLES Performing Organization Address City/[facility]/ZIP Co de Phone Number [facility] [place] [address] * Magnesium (06/19/2023 3:20 AM EDT) Magnesium 0.95 0.69 - 1.07 mmol/L [facility] Blood 06/19/2023 3:20 AM EDT 06/19/2023 3:39 AM EDT Narrative Resulting Agency Comment Spec In Lab Dennis Castillo MD CHEMISTRY ORDERABLES [facility] [place] [address] * Basic Metabolic Panel (non-fasting) (06/19/2023 3:20 AM EDT) Glucose 113 65 - 199 mg/dL [facility] Comment:Diabetes: >=200 mg/d L plus symptoms Blood Urea Nitrogen 13 10 - 20 mg/dL [facility] Creatinine 1.22 0.80 - 1.50 mg/dL [facility] Sodium 139 135 - 145 mmol/L [facility] Potassium 4.1 3.5 - 5.0 mmol/L [facility] Comment: Please note: ??Patients with WBC >100,000 may have falsely elevated Potassium levels. ??For accurate Potassium quantification in these patients send serum separator tube (gold top) for subsequent determinations. ??Contact the Clinical Chemistry Laboratory if there are any questions. Chloride 106 98 - 107 mmol/L [facility] Carbon Dioxide 22 22 - 31 mmol/L [facility] Anion Gap 11 5 - 15 mmol/L [facility] Calcium 9.0 8.5 - 10.5 mg/dL [facility] Est Glomerular Filtration Rate 72 >=60 mL/min/1. 73 m?? [facility] Comment: This patient's estimated [...] In Lab Dennis Castillo MD CHEMISTRY ORDERABLES [facility] [place] [address] * IR All Drainage Procedures (06/18/2023 3:44 [...] the entire procedure. ?? Rhoda Jimenez MD IMG IR ORDERABLES * Calcofluor White Stain (06/18/2023 2:54 PM EDT) Calcofluor Stain Calcofluor White Preparation: Negative [facility] Abdominal Fluid 06/18/2023 2 :54 PM EDT 06/18/2023 4:18 PM EDT Narrative Resulting Agency Comment Spec In Lab Claire DURHAM MICROBIOLOGY - GEN ERAL ORDERABLES Performing Organization Address [facility] Co de Phone Number [facility] [place] [address] * Fungus culture (06/18/2023 2:54 PM EDT) Fungus Culture No Fungus isolated [facility] Abdominal Fluid 06/18/2023 2 :54 PM EDT 06/18/2023 4:18 PM EDT Narrative Resulting Agency Comment Spec In Lab Claire DURHAM MICROBIOLOGY - GEN ERAL ORDERABLES Performing Organization Address [facility] Co de Phone Number [facility] [place] [address] * Anaerobic Culture (06/18/2023 2:54 PM EDT) Anaerobic Culture No anaerobic organisms isolated [facility] Abdominal Fluid 06/18/2023 2 :54 PM EDT 06/18/2023 4:17 PM EDT Narrative Resulting Agency Comment Spec In Lab Claire DURHAM MICROBIOLOGY - GEN ERAL ORDERABLES Performing Organization Address [facility] Co de Phone Number [facility] [place] [address] * (ABNORMAL) Body Fluid Culture, Aerobic (06/18/2023 2:54 PM EDT) Body Fluid Culture Rare Enterococcus faecalis(A) [facility] Gram Stain Rare Neutrophils seen No microorganisms seen. (A) [facility] Organism Enterococcus faecalis(A) [facility] Abdominal Fluid 06/18/2023 2 :54 PM [...] Claire DURHAM MICROBIOLOGY - GEN ERAL ORDERABLES [facility] [place] [address] * (ABNORMAL) Differential, Automated (06/18/2023 2:10 AM EDT) Neutrophil % 65.6 % [facility] Neutrophil Absolute 7.27(H) 1.70 - 6.10 x10(3)/mc L [facility] Lymph % 26.2 % [facility] Lymphocytes Abs 2.9 0.9 - 3.2 x10(3)/mc L [facility] Monocyte % 5.5 % [facility] Monocyte Abs 0.6 0.3 - 0.9 x10(3)/mc L [facility] Eos % 1.8 % [facility] Eosinophils Abs 0.2 0.0 - 0.4 x10(3)/mc L [facility] Basophil % 0.6 % [facility] Baso Absolute 0.1 0.0 - 0.1 x10(3)/mc L [facility] Immature Gran % 0.30 % [facility] Comment: Immature granulocytes(IG's)percentage and absolute count will include metamyelocytes, myelocytes, and promyelocytes. Blood smears from CBCs yielding IG's will be scanned manually for concordance. If this scan disagrees with the automated IG or if promyelocytes are noted, a manual differential will be performed. Immature Gran Absolute 0.03 0.00 - 0.04 x10(3)/mc L [facility] Blood 06/18/2023 2:10 AM EDT 06/18/2023 2:19 AM EDT Narrative Resulting Agency Comment Spec In Lab Macie DURHAM HEMATOLOGY TRIP MCDUFFIE [facility] [place] [address] * (ABNORMAL) Hemogram (06/18/2023 2:10 AM EDT) White Blood Cell 11.1(H) 4.0 - 9.5 x10(3)/ L [facility] Red Blood Cell 5.33 4.58 - 5.54 x10(6)/ L [facility] [facility] Hemoglobin 15.7 13.7 - 16.5 g/dL [facility] Hematocrit 46.3 40.5 - 48.5 % [facility] Mean Cell Volume 86.9 82.9 - 93.1 fL [facility] Mean Cell Hemoglobin 29.5 27.5 - 32.1 pg [facility] Mean Cell Hemoglobin Concentration 33.9 32.0 - 35.7 g/dL [facility] Platelet 201 145 - 357 x10(3)/ L [facility] RDW Standard Deviation 43.4 36.0 - 45.0 [facility] RDW coefficient of variation 13.5 11.4 - 13.8 % [facility] Mean Platelet Volume 9.1 7.6 - 12.9 [facility] NRBC% auto 0.0 % [facility] NRBC Absolute 0.000 0.000 - 0.000 x10(3)/ L [facility] Blood 06/18/2023 2:10 AM EDT 06/18/2023 2:19 AM EDT Narrative Resulting Agency Comment Spec In Lab Macie DURHAM HEMATOLOGY TRIP MCDUFFIE Performing Organization Address City/[facility]/ZIP Co de Phone Number [facility] [place] [address] * (ABNORMAL) Phosphorus (06/18/2023 2:10 AM EDT) Phosphorus 2.2(L) 2.5 - 4.5 mg/dL [facility] Blood 06/18/2023 2:10 AM EDT 06/18/2023 2:19 AM EDT Narrative Resulting Agency Comment Spec In Lab Dennis Castillo MD CHEMISTRY ORDERABLES Performing Organization Address [facility] Co de Phone Number [facility] [place] [address] * Magnesium (06/18/2023 2:10 AM EDT) Magnesium 0.91 0.69 - 1.07 mmol/L [facility] Blood 06/18/2023 2:10 AM EDT 06/18/2023 2:19 AM EDT Narrative Resulting Agency Comment Spec In Lab Dennis Castillo MD CHEMISTRY ORDERABLES Performing Organization Address [facility] Co de Phone Number [facility] [place] [address] * Basic Metabolic Panel (non-fasting) (06/18/2023 2:10 AM EDT) Glucose 123 65 - 199 mg/dL [facility] Comment:Diabetes: >=200 mg/d L plus symptoms Blood Urea Nitrogen 14 10 - 20 mg/dL [facility] Creatinine 1.12 0.80 - 1.50 mg/dL [facility] Sodium 138 135 - 145 mmol/L [facility] Potassium 4.2 3.5 - 5.0 mmol/L [facility] Comment: Please note: ??Patients with WBC >100,000 may have falsely elevated Potassium levels. ??For accurate Potassium quantification in these patients send serum separator tube (gold top) for subsequent determinations. ??Contact the Clinical Chemistry Laboratory if there are any questions. Chloride 106 98 - 107 mmol/L [facility] Carbon Dioxide 22 22 - 31 mmol/L [facility] Anion Gap 10 5 - 15 mmol/L [facility] Calcium 8.9 8.5 - 10.5 mg/dL [facility] Est Glomerular Filtration Rate 80 >=60 mL/min/1. 73 m?? [facility] Comment: This patient's estimated [...] In Lab Dennis Castillo MD CHEMISTRY ORDERABLES [facility] [place] [address] * Vancomycin, trough (06/18/2023 2:10 AM EDT) Vancomycin, Trough 12.6 mg/L [facility] Comment: Therapeutic range for complicated infections [...] Jimenez MD CHEMISTRY ORDERABLES Performing Organization Address City/State/[facility] Co de Phone Number [facility] [place] [address] * (ABNORMAL) Differential, Automated (06/17/2023 3:50 AM EDT) Neutrophil % 67.5 % [facility] Neutrophil Absolute 8.27(H) 1.70 - 6.10 x10(3)/mc L [facility] Lymph % 24.4 % [facility] Lymphocytes Abs 3.0 0.9 - 3.2 x10(3)/ L [facility] Monocyte % 6.7 % [facility] Monocyte Abs 0.8 0.3 - 0.9 x10(3)/ L [facility] Eos % 0.8 % [facility] Eosinophils Abs 0.1 0.0 - 0.4 x10(3)/ L [facility] Basophil % 0.4 % [facility] Baso Absolute 0.0 0.0 - 0.1 x10(3)/mc L [facility] Immature Gran % 0.20 % [facility] Comment: Immature granulocytes(IG's)percentage and absolute count will include metamyelocytes, myelocytes, and promyelocytes. Blood smears from CBCs yielding IG's will be scanned manually for concordance. If this scan disagrees with the automated IG or if promyelocytes are noted, a manual differential will be performed. Immature Gran Absolute 0.03 0.00 - 0.04 x10(3)/mc L [facility] Blood 06/17/2023 3:50 AM EDT 06/17/2023 4:28 AM EDT Narrative Resulting Agency Comment Spec In Lab Macie DURHAM HEMATOLOGY TRIP MCDUFFIE Performing Organization Address City/[facility]/ZIP Co de Phone Number [facility] [place] [address] * (ABNORMAL) Hemogram (06/17/2023 3:50 AM EDT) White Blood Cell 12.3(H) 4.0 - 9.5 x10(3)/[facility] Red Blood Cell 5.54 4.58 - 5.54 x10(6)/[facility] Hemoglobin 16.6(H) 13.7 - 16.5 g/dL [facility] Hematocrit 47.6 40.5 - 48.5 % [facility] Mean Cell Volume 85.9 82.9 - 93.1 [facility] Mean Cell Hemoglobin 30.0 27.5 - 32.1 pg [facility] Mean Cell Hemoglobin Concentration 34.9 32.0 - 35.7 g/dL [facility] Platelet 209 145 - 357 x10(3)/ L [facility] RDW Standard Deviation 43.5 36.0 - 45.0 [facility] RDW coefficient of variation 13.9(H) 11.4 - 13.8 % [facility] Mean Platelet Volume 9.1 7.6 - 12.9 [facility] NRBC% auto 0.0 % [facility] NRBC Absolute 0.000 0.000 - 0.000 x10(3)/ L [facility] Blood 06/17/2023 3:50 AM EDT 06/17/2023 4:28 AM EDT Narrative Resulting Agency Comment Spec In Lab Macie DURHAM HEMATOLOGY TRIP MCDUFFIE [facility] [place] [address] * Phosphorus (06/17/2023 3:50 AM EDT) Phosphorus 2.6 2.5 - 4.5 mg/dL [facility] Blood 06/17/2023 3:50 AM EDT 06/17/2023 4:28 AM EDT Narrative Resulting Agency Comment Spec In Lab Dennis Castillo MD CHEMISTRY ORDERABLES Performing Organization Address [facility] Co de Phone Number [facility] [place] [address] * Magnesium (06/17/2023 3:50 AM EDT) Pathologist [facility] Magnesium 0.88 0.69 - 1.07 mmol/L [facility] Blood 06/17/2023 3:50 AM EDT 06/17/2023 4:28 AM EDT Narrative Resulting Agency Comment Spec In Lab Dennis Castillo MD CHEMISTRY ORDERABLES Performing Organization Address [facility] Co de Phone Number [facility] [place] [address] * (ABNORMAL) Basic Metabolic Panel (non-fasting) (06/17/2023 3:50 AM EDT) Glucose 104 65 - 199 mg/dL [facility] Comment:Diabetes: >=200 mg/d L plus symptoms Blood Urea Nitrogen 15 10 - 20 mg/dL [facility] Creatinine 1.21 0.80 - 1.50 mg/dL [facility] Sodium 137 135 - 145 mmol/L [facility] Potassium 3.9 3.5 - 5.0 mmol/L [facility] Comment: Please note: ??Patients with WBC >100,000 may have falsely elevated Potassium levels. ??For accurate Potassium quantification in these patients send serum separator tube (gold top) for subsequent determinations. ??Contact the Clinical Chemistry Laboratory if there are any questions. Chloride 103 98 - 107 mmol/L [facility] Carbon Dioxide 21(L) 22 - 31 mmol/L [facility] Anion Gap 13 5 - 15 mmol/L [facility] Calcium 9.0 8.5 - 10.5 mg/dL [facility] Est Glomerular Filtration Rate 73 >=60 mL/min/1. 73 m?? [facility] Comment: This patient's estimated [...] Castillo MD CHEMISTRY ORDERABLES Performing Organization Address City/[facility]/ZIP Co de Phone Number [facility] [place] [address] * CABLEMAN Shunt Culture (06/16/2023 5:40 PM EDT) Central Nervous System Shunt Culture No growth at 10 days. [facility] Gram Stain Cytocentrifuge Gram Stain performed No Neutrophils seen. No microorganisms seen. [facility] Cerebrospinal Shunt Fluid 06/16/2023 5:40 PM EDT 06/16/2023 6:11 PM EDT Narrative Resulting Agency Comment Spec In Lab Lisa Bautista MD MICROBIOLOGY - GENE RAL ORDERABLES Performing Organization Address City/[facility]/ZIP Co de Phone Number [facility] [place] [address] * CSF Cell Count (06/16/2023 5:40 PM EDT) Tube # counted 1 [facility] AUTO NUC CSF CT 0 0 - 5 /mcl [facility] Comment: If Nucleated CSF CT result [...] clinical condition. RBC CSF CT 2 /mcl [facility] Cerebrospinal Fluid 06/16/19 5:40 PM EDT 06/16/2023 6:01 PM EDT Narrative Resulting Agency Comment Spec In Lab Lisa Bautista MD BODY FLUIDS AND STO OLS ORDERABLES Performing Organization Address City/[facility]/ZIP Co de Phone Number [facility] [place] [address] * CSF DESC 1 (06/16/2023 5:40 PM EDT) Tube Num CSF #1 1 [facility] Color, CSF Colorless Colorless [facility] Appearance, CSF Clear Clear [facility] Total Vol, CSF 1.0 mL [facility] Cerebrospinal Fluid 06/16/19 5:40 PM EDT 06/16/2023 6:01 PM EDT Narrative Resulting Agency Comment Spec In Lab Lisa Bautista MD BODY FLUIDS AND STO OLS ORDERABLES [facility] [place] [address] * Glucose Level CSF (06/16/2023 5:36 PM EDT) Glucose, CSF 76 mg/dL [facility] Comment:CSF at equilibrium e quals approximately 60-80% of plasma glucose. Cerebrospinal Fluid 06/16/19 5:36 PM EDT 06/16/2023 6:01 PM EDT Narrative Resulting Agency Comment Spec In Lab Rhoda Jimenez MD BODY FLUIDS AND STOO LS ORDERABLES Performing Organization Address [facility] Co de Phone Number [facility] [place] [address] * (ABNORMAL) Protein Level CSF (06/16/2023 5:36 PM EDT) Protein, CSF 7(L) 15 - 45 mg/dL [facility] Xanthochromia Neg [facility] Cerebrospinal Fluid 06/16/19 5:36 PM EDT 06/16/2023 6:01 PM EDT Narrative Resulting Agency Comment Spec In Lab Rhoda Jimenez MD BODY FLUIDS AND STOO LS ORDERABLES Performing Organization Address [facility] Co de Phone Number [facility] [place] [address] * CT Abdomen & Pelvis w Contrast (06/16/2023 2:04 PM EDT) WORKSTATION ID [id number] RAD Anatomical Region Laterality Modality Abdomen, Pelvis [...] who have questions please contact the health adult caregiver that requested your imaging first. ? Electronically signed by: Adrianne Lao MD, [facility] ([phone]), at 06/16/2023 2:49 PM Narrative 06/16/2023 2:49 [...] patients who have questions please contactthe health adult caregiver that requested your imaging first. Electronically signed by: Adrianne Lao MD, [facility]([phone]), at 06/16/2023 2:49 PM Dennis Castillo MD IMG CT ORDERABLES * CSF Cell Count (06/16/2023 2:00 PM EDT) Tube # counted 1 [facility] AUTO NUC CSF CT 2 0 - 5 /mcl APR Y [facility] Comment: If Nucleated CSF CT result [...] clinical condition. RBC CSF CT 0 /mcl [facility] Cerebrospinal Fluid 06/16/19 2:00 PM EDT 06/16/2023 3:03 PM EDT Narrative Resulting Agency Comment Spec In Lab Lisa Bautista MD BODY FLUIDS AND STO OLS ORDERABLES Performing Organization Address [facility] Co de Phone Number [facility] [place] [address] * CSF DESC 1 (06/16/2023 2:00 PM EDT) Tube Num CSF #1 1 [facility] Color, CSF Colorless Colorless [facility] Appearance, CSF Clear Clear [facility] Total Vol, CSF 2.0 mL [facility] Cerebrospinal Fluid 06/16/19 2:00 PM EDT 06/16/2023 3:03 PM EDT Narrative Resulting Agency Comment Spec In Lab Lisa Bautista MD BODY FLUIDS AND STO OLS ORDERABLES Performing Organization Address [facility] de Phone Number [facility] [place] [address] * CABLEMAN Shunt Culture (06/16/2023 1:49 PM EDT) Central Nervous System Shunt Culture No growth at 10 days. [facility] Gram Stain Cytocentrifuge Gram Stain performed No Neutrophils seen. No microorganisms seen. [facility] Cerebrospinal Shunt Fluid 06/16/2023 1:49 PM EDT 06/16/2023 3:10 PM EDT Narrative Resulting Agency Comment Spec In Lab Lsia Bautista MD MICROBIOLOGY - GENE RAL ORDERABLES Performing Organization Address City/[facility]/ZIP Co de Phone Number [facility] [place] [address] * Glucose Level CSF (06/16/2023 1:49 PM EDT) Glucose, CSF 79 mg/dL [facility] Comment:CSF at equilibrium e quals approximately 60-80% of plasma glucose. Cerebrospinal Fluid 06/16/19 1:49 PM EDT 06/16/2023 3:03 PM EDT Narrative Resulting Agency Comment Spec In Lab Dennis Castillo MD BODY FLUIDS AND STOO LS ORDERABLES Performing Organization Address [facility] Co de Phone Number [facility] [place] [address] * (ABNORMAL) Protein Level CSF (06/16/2023 1:49 PM EDT) Protein, CSF 7(L) 15 - 45 mg/dL [facility] Xanthochromia Neg [facility] Cerebrospinal Fluid 06/16/19 1:49 PM EDT 06/16/2023 3:03 PM EDT Narrative Resulting Agency Comment Spec In Lab Dennis Castillo MD BODY FLUIDS AND STOO LS ORDERABLES Performing Organization Address [facility]/ZIP Co de Phone Number [facility] [place] [address] * ABORH Recheck Status (06/16/2023 1:15 PM EDT) ABORH Type Recheck Completed [facility] Blood 06/16/2023 1:15 PM EDT 06/16/2023 1:27 PM EDT Narrative Resulting Agency Comment Spec In Lab Lisa Bautista MD BLOOD BANK LAB TRIP MCDUFFIE [facility] [place] [address] * Type and screen ([facility]UL[facility]) (06/16/2023 1:15 PM EDT) ABORH Type A POSITIVE [facility] Patient BB History Found [facility] Expires at [id number] on: 06-19-2023 [facility] Ab Screen Interp Negative [facility] Blood 06/16/2023 1:15 PM EDT 06/16/2023 1:15 PM EDT Narrative [facility] - 06/16/2023 1:15 PM EDT This Type and Screen result is only valid at the [facility] Resulting Agency Comment Spec In Lab Dennis Castillo MD BLOOD BANK LAB ORDER BELKIS Performing Organization Address [facility] Co de Phone Number [facility] [place] [address] * APTT (06/16/2023 1:15 PM EDT) Partial Thromboplastin Time 32 25 - 37 sec [facility] Comment: The PTT is NOT appropriate for heparin monitoring. Use the Anti-Xa level for heparin monitoring (HEP UFH) or LMWH monitoring (HEP LMW). A PTT less than 37 seconds generally indicates adequate hemostasis. Blood 06/16/2023 1:15 PM EDT 06/16/2023 1:28 PM EDT Narrative Resulting Agency Comment Spec In Lab Dennis Castillo MD HEMATOLOGY ORDERABLE S Performing Organization Address City/[facility]/ZIP Co de Phone Number [facility] [place] [address] * (ABNORMAL) Prothrombin Time (06/16/2023 1:15 PM EDT) Prothrombin Time 13.4(H) 9.4 - 12.5 sec [facility] International Normalization Ratio 1.2 [facility] Comment: An INR <2.0 indicates adequate [...] Lab Dennis Castillo MD HEMATOLOGY ORDERABLE S [facility] [place] [address] * Blood culture (06/16/2023 1:15 PM EDT) Blood Culture No growth at 5 days. [facility] Blood STRUCTURE OF RIGHT UPPER LIMB / Unknown 06/16/2023 1:15 PM EDT 06/16/2023 1:50 PM EDT Narrative Resulting Agency Comment Spec In Lab Dennis Castillo MD MICROBIOLOGY - BLOOD ORDERABLES Performing Organization Address [facility]/ZIP Co de Phone Number [facility] [place] [address] * Blood culture (06/16/2023 12:45 PM EDT) Blood Culture No growth at 5 days. [facility] Blood STRUCTURE OF LEFT UPPER LIMB / Unknown 06/16/2023 12:45 PM EDT 06/16/2023 1:10 PM EDT Narrative Resulting Agency Comment Spec In Lab Dennis Castillo MD MICROBIOLOGY - BLOOD ORDERABLES Performing Organization Address City/[facility]/ZIP Co de Phone Number [facility] [place] [address] * (ABNORMAL) CRP, acute inflammation (06/16/2023 11:20 AM EDT) C-Reactive Protein 107.8(H) <=4.9 mg/L [facility] Blood Venous Draw / Unknown 06/16/2023 11:20 AM EDT 06/16/2023 11:39 AM EDT Narrative Resulting Agency Comment Spec In Lab Lisa Bautista MD CHEMISTRY ORDERABLE S Performing Organization Address [facility] Co de Phone Number [facility] [place] [address] * (ABNORMAL) Sedimentation rate (06/16/2023 11:20 AM EDT) Sedimentation Rate Automated 47(H) 2 - 37 mm/hr [facility] Comment: Effective February 02, 2019 new capillary photometric technology has resulted in a change in reference ranges. It is recommended that each ESR result be reviewed with its own age appropriate reference range. Blood Venous Draw / Unknown 06/16/2023 11:20 AM EDT 06/16/2023 11:36 AM EDT Narrative Resulting Agency Comment Spec In Lab Lisa Bautista MD HEMATOLOGY ORDERABL ES Performing Organization Address [facility] Co de Phone Number [facility] [place] [address] * (ABNORMAL) Differential, Automated (06/16/2023 11:20 AM EDT) Neutrophil % 81.3 % [facility] Neutrophil Absolute 14.45(H) 1.70 - 6.10 x10(3)/mc L [facility] Lymph % 12.0 % [facility] Lymphocytes Abs 2.1 0.9 - 3.2 x10(3)/mc L [facility] Monocyte % 5.7 % [facility] Monocyte Abs 1.0(H) 0.3 - 0.9 x10(3)/mc L [facility] Eos % 0.3 % [facility] Eosinophils Abs 0.1 0.0 - 0.4 x10(3)/mc L [facility] Basophil % 0.3 % [facility] Baso Absolute 0.0 0.0 - 0.1 x10(3)/ L [facility] Immature Gran % 0.40 % [facility] Comment: Immature granulocytes(IG's)percentage and absolute count will include metamyelocytes, myelocytes, and promyelocytes. Blood smears from CBCs yielding IG's will be scanned manually for concordance. If this scan disagrees with the automated IG or if promyelocytes are noted, a manual differential will be performed. Immature Gran Absolute 0.08(H) 0.00 - 0.04 x10(3)/[facility] Blood 06/16/2023 11:2 0 AM EDT 06/16/2023 11:36 AM EDT Narrative Resulting Agency Comment Spec In Lab Leighton Ordoñez MD HEMATOLOGY ORDERABLE S Performing Organization Address City/State/[facility] Co de Phone Number [facility] [place] [address] * (ABNORMAL) Hemogram (06/16/2023 11:20 AM EDT) White Blood Cell 17.8(H) 4.0 - 9.5 x10(3)/[facility] Red Blood Cell 5.94(H) 4.58 - 5.54 x10(6)/ L [facility] Hemoglobin 17.9(H) 13.7 - 16.5 g/dL [facility] Hematocrit 51.4(H) 40.5 - 48.5 % [facility] Mean Cell Volume 86.5 82.9 - 93.1 fL [facility] Mean Cell Hemoglobin 30.1 27.5 - 32.1 pg [facility] Mean Cell Hemoglobin Concentration 34.8 32.0 - 35.7 g/dL [facility] Platelet 236 145 - 357 x10(3)/ L [facility] RDW Standard Deviation 42.5 36.0 - 45.0 fL [facility] RDW coefficient of variation 13.4 11.4 - 13.8 % [facility] Mean Platelet Volume 9.1 7.6 - 12.9 fL [facility] NRBC% auto 0.0 % [facility] NRBC Absolute 0.000 0.000 - 0.000 x10(3)/mc L [facility] Blood 06/16/2023 11:2 0 AM EDT 06/16/2023 11:36 AM EDT Narrative Resulting Agency Comment Spec In Lab Leighton Ordoñez MD HEMATOLOGY ORDERABLE S [facility] [place] [address] * Basic Metabolic Panel (non-fasting) (06/16/2023 11:20 AM EDT) Glucose 105 65 - 199 mg/dL [facility] Comment:Diabetes: >=200 mg/d L plus symptoms Blood Urea Nitrogen 14 10 - 20 mg/dL [facility] Creatinine 1.20 0.80 - 1.50 mg/dL [facility] Sodium 140 135 - 145 mmol/L [facility] Potassium 4.2 3.5 - 5.0 mmol/L [facility] Comment: Please note: ??Patients with WBC >100,000 may have falsely elevated Potassium levels. ??For accurate Potassium quantification in these patients send serum separator tube (gold top) for subsequent determinations. ??Contact the Clinical Chemistry Laboratory if there are any questions. Chloride 103 98 - 107 mmol/L [facility] Carbon Dioxide 22 22 - 31 mmol/L [facility] Anion Gap 15 5 - 15 mmol/L [facility] Calcium 9.6 8.5 - 10.5 mg/dL [facility] Est Glomerular Filtration Rate 74 >=60 mL/min/1. 75 m?? [facility] Comment: This patient's estimated [...] In Lab Dennis Castillo MD CHEMISTRY ORDERABLES [facility] [place] [address] * XR Shunt Series (06/16/2023 11:01 AM EDT) [email or web address] WORKSTATION ID [id number] FORMERLY NAMED [facility] Anatomical Region Laterality Modality N/A Digital Radiogra phy Impressions 06/16/2023 11:51 AM EDT Right frontal approach MEDICAL ASSISTANT PRN shunt catheter with focal discontinuity at the [...] who have questions please contact the health adult caregiver that requested your imaging first. ? Electronically signed by: Kraig Rizvi MD, [facility] ([phone]), at 06/16/2023 11:51 AM Narrative 06/16/2023 11:51 AM EDT EXAMINATION: XR SHUNT SERIES CLINICAL HISTORY: recent revision recent revision, new abdominal pain, headache. TECHNIQUE: Multiple AP and lateral views of skull, chest, abdomen. COMPARISON: Radiograph shunt series 06/09/2023 FINDINGS: Right frontal approach MEDICAL ASSISTANT PRN shunt catheter, with the intracranial portion terminating [...] shunt series 06/09/2023 FINDINGS: Right frontal approach MEDICAL ASSISTANT PRN shunt catheter, with the intracranial portion terminating [...] pattern. Cholecystectomy clips IMPRESSION Right frontal approach MEDICAL ASSISTANT PRN shunt catheter with focal discontinuity at thesegment where it enters the abdomen with 2.3 cm gap. Aside from this, theremaining catheter are intact Thank you for letting us participate in the care of this patient. If youare a health care provider and have any questions regarding this report,please contact the number below. For patients who have questions please contactthe health adult caregiver that requested your imaging first. Derek Polanco DO IMG DX ORDERABLES * CT Head wo Contrast (Generic) (06/16/2023 10:58 AM EDT) WORKSTATION ID [id number] RAD Anatomical Region Laterality Modality Head Computed Tomogra phy Impressions 06/16/2023 11:11 AM EDT Stable examination with no hydrocephalus or other acute abnormality. Thank you for letting us participate in the care of this patient. ??If you are a health care provider and have any questions regarding this report, please contact the number below. ??For patients who have questions please contact the health adult caregiver that requested your imaging first. ? Narrative 06/16/2023 11:11 AM EDT EXAMINATION: CT [...] patients who have questions please contactthe health adult caregiver that requested your imaging first. Derek Polanco DO Zelda CT ORDERABLES documented in this encounter Visit Diagnoses Not on filedocumented in this encounter Admitting Diagnoses Diagnosis Shunt malfunction Mechanical complication due to other implant and internal device, not elsewhere classified documented in this encounter Administered Medications Inactive Administered Medications - up to 3 most recent administrations Medication Order MAR Action Action Date Dose Rate Site acetaminophen (Tylenol) tablet 975 mg 975 mg [...] Given 06/29/2023 11:15 PM EDT 975 mg ampicillin-sulbactam (Unasyn) 3 g vial attach to sodium chloride 0.9% 100 mL Mini-Bag Plus 3 g, Intravenous, EVERY 6 HOURS, First dose on Thu06/23/23 at 0900, Until Discontinued, Administer over 15 Minutes, Warning Vesicant/Irritant Medication , Indication for (Active or Suspected): CABLEMAN/Meningitis New Bag 06/30/2023 3:26 PM EDT 3 g 4 00 mL/hr New Bag 06/30/2023 8:48 AM EDT 3 g 400 mL/hr New Bag 06/30/2023 3:00 AM EDT 3 g 400 [...] 1401, Until Thu06/30/23 at 1838, Constipation, Routine BUpivacaine-EPINEPHrine (Marcaine-epiNEPHrine) 0.25 %-1:200,000 injection PRN, Starting on Thu06/29/23 at 1440, Until Thu06/30/23 at 1838, Intra-Operative (Intra-Procedure), Routine Given 06/29/2023 2:40 PM EDT 10 mLs 19- Surgical Site calcium carbonate (TUMS) chewable tablet 500 mg 500 mg, Oral, EVERY 6 HOURS PRN, Starting on Thu06/26/23 at 1815, Until Thu06/30/23 at 1838, Abdominal cramping, Routine cyclobenzaprine (Flexeril) tablet 10 mg 10 mg, [...] Given 06/20/2023 5:53 PM EDT 25 mg gelatin adsorbable 12-7 mm sponge PRN, Starting on 06/29/23 at 1445, Until Thu06/30/23 at 1838, Intra-Operative (Intra-Procedure) Given 06/29/2023 2:45 PM EDT 1 each 19- Surgical Site hydrOXYzine (Atarax) tablet 25 mg 25 mg, Oral, DAILY, First dose on Thu06/17/23 at 0900, Until Discontinued, Routine Given 06/30/2023 8:48 AM EDT 25 mg Given 06/29/2023 8:23 AM EDT 25 mg Given 06/28/2023 9:01 AM EDT 25 mg lactulose (Chronulac) (0.67 gram/mL) oral liquid 20 [...] Given 06/28/2023 5:59 AM EDT 25 mcg magnesium hydroxide (Milk of Magnesia) (80mg/mL) oral liquid 2,400 mg 2,400 mg, Oral, DAILY PRN, Starting on 06/27/23 at 1401, Until Thu06/30/23 at 1838, Constipation, 30 mL regular (400 mg/5 mL) = 10 mL concentrate (2400 mg/10 mL), Routine metoprolol succinate XL (Toprol-XL) tablet 25 mg [...] DAILY, First dose (after last modification) on Sandra 06/18/23 at 0900, Until Discontinued, Routine Given 06/30/2023 8:48 AM EDT 150 mg Given 06/29/2023 8:24 AM EDT 150 mg Given 06/28/2023 9:07 AM EDT 150 mg thrombin (bovine) (Thrombin-Jmi) solution PRN, Starting on 06/29/23 at 1445, Until Thu06/30/23 at 1838, Intra-Operative (Intra-Procedure) Given 06/29/2023 2:45 PM EDT 5,000 Units 19- Surgical Site topiramate (Topamax) tablet 25 mg 25 mg, Oral, 2 TIMES DAILY, First dose on Thu06/16/23 at 2100, Until Discontinued, DO NOT SPLIT, CRUSH OR OPEN, Routine Given 06/30/2023 8:48 AM EDT 25 mg Given 06/29/2023 8:04 PM EDT 25 mg Given 06/29/2023 8:23 AM EDT 25 mg documented in this [...] other ordered pain medications are indicated., Routine 5823 (Given - Provider: Josselyn Diaz RN) 6813 (Given - Provider: Josselyn Diaz RN)1224 (Given - Provider: Deng Fuentes RN) ampicillin-sulbactam (Unasyn) 3 g vial attach to sodium chloride 0.9% 100 mL Mini-Bag Plus 3 g, Intravenous, EVERY 6 HOURS, First dose on Thu06/23/23 at 0900, Until Discontinued, Administer over 15 Minutes, Warning Vesicant/Irritant Medication , Indication for (Active or Suspected): CABLEMAN/Meningitis 0455 (New Bag - Provider: Josselyn Diaz RN)0510 (Stopped - Provider: Josselyn Diaz RN)0905 (New Bag - Provider: Enriqueta Ortega RN)0920 (Stopped - Provider: Enriqueta Ortega RN)1500 (New Bag - Provider: Enriqueta Ortega RN)1515 (Stopped - Provider: Enriqueta Ortega RN)2011 (New Bag - Provider: Josselyn Diaz RN)2026 (Stopped - Provider: Josselyn Diaz RN) 025 (New Bag - Provider: Josselyn Diaz RN)031 (Stopped - Provider: Josselyn Diaz RN)0837 (New Bag - Provider: Rissa Thomas RN)0852 (Stopped - Provider: Rissa Thomas RN)1357 (MAR Hold - Provider: Admin Adt - Reason: Transfer to a Procedural area)1500 (Automatically Held - Provider: Admin Adt)1821 (MAR Unhold - Provider: Admin Adt)2004 (New Bag - Provider: Josselyn Diaz RN)2019 (Stopped - Provider: Gabriel Cordova RN) 0300 (New Bag - Provider: Josselyn Diaz RN)0315 (Stopped - Provider: Josselyn Diaz RN)0848 (New Bag - Provider: Deng Fuentes RN)0903 (Stopped - Provider: Deng Fuentes RN)1526 (New Bag - Provider: Deng Fuentes, EDWARD)1541 (Due: Stopped - Provider: Deng Fuentes, EDWARD) ARIPiprazole (Abilify) tablet 10 mg 10 mg, Oral, DAILY, First dose on Thu06/17/23 at 0900, Until Discontinued, Routine 0904 (Given - Provider: Enriqueta Ortega RN) 0824 (Given - Provider: Rissa Thomas RN)1357 (MAR Hold [...] Josselyn Diaz RN)2345 (Stopped - Provider: Josselyn Diaz RN) 0545 (New Bag - Provider: Josselyn Diaz RN)0615 (Stopped - Provider: Josselyn Diaz, RN)1424 (New Bag - Provider: Deng Fuentes, EDWARD)1454 (Stopped - Provider: Deng Fuentes RN) diphenhydrAMINE (Benadryl) (50 mg/mL) injection 25 mg (COMPLETED)(Linked Group 1) 25 mg, Intravenous, EVERY 8 HOURS, 3 doses, First dose on Thu06/29/23 at 2200, Last dose on Thu06/30/23 at 1400, Routine 2315 (Given - Provider: Josselyn Diaz RN) 0544 (Given - Provider: Josselyn Diaz RN)1414 (Given - Provider: Deng Fuentes RN) heparin (porcine) (5,000 units/1 mL) subcutaneous injection 5,000 Units (CANCELED) 5,000 Units, Subcutaneous, EVERY 12 HOURS SCHEDULED (2 times per day), 20 doses, First dose on Thu06/19/23 at 0900, Last dose on Thu06/29/23 at 2100, Routine 0901 (Given - Provider: Enriqueta Ortega RN)2011 (Given - Provider: Josselyn Diaz RN) 0824 (Given - Provider: Rissa Thomas RN)1357 (APR Hold - Provider: Admin Adt - Reason: Transfer to a Procedural area)1821 (APR Unhold - Provider: Admin Adt) hydrOXYzine (Atarax) tablet 25 mg 25 mg, Oral, DAILY, First dose on Thu06/17/23 at 0900, Until Discontinued, Routine 09 (Given - Provider: Enriqueta E Ortega, RN) 0823 (Given - Provider: Rissa Thomas RN)1357 (APR Hold - Provider: Admin Adt - Reason: Transfer to a Procedural area)1821 (APR Unhold - Provider: Admin Adt) 0848 (Given - Provider: Deng Fuentes RN) iohexoL (Omnipaque) (350 mg/mL) solution 0-50 mL 0-50 mL, Oral, ONCE, 1 dose, On Thu06/29/23 at 1930, Warning Vesicant/Irritant Medication , Radiology [...] a sink. Properly dispose of container., Routine 0845 (Given - Provider: Enriqueta Ortega RN) iohexoL [...] a sink. Properly dispose of container., Routine 09 (Given - Provider: Enriqueta Ortega RN) lactulose (Chronulac) (0.67 gram/mL) oral liquid 20 g 20 g, Oral, 2 TIMES DAILY, First dose on Thu06/28/23 at 2100, Until Discontinued, Routine 2011 (Given - Provider: Josselyn Diaz RN) 08 (Not Given - Provider: Rissa Thomas RN - Reason: Patient/family refused - Comment: several BMs overnight, other bowel meds given.)1357 (APR Hold - Provider: Admin Adt - Reason: Transfer to a Procedural area)182 (APR Unhold - Provider: Admin Adt)2099 (Not Given [...] 0559 (Given - Provider: Josselyn Diaz RN) 06 (Given - Provider: Josselyn Diaz RN)135 (APR Hold - Provider: Admin Adt - Reason: Transfer to a Procedural area)182 (APR Unhold - Provider: Admin Adt) 0545 (Given - Provider: Josselyn Diaz RN) metoprolol succinate XL (Toprol-XL) tablet 25 mg 25 mg, Oral, DAILY, First dose on Thu06/17/23 at 0900, Until Discontinued, DO NOT CRUSH OR OPEN, Routine 09 (Given - Provider: Enriqueta Ortega RN) 08 (Given - Provider: Rissa Thomas RN)1357 (APR Hold - Provider: Admin Adt - Reason: Transfer to a Procedural area)182 (APR Unhold - Provider: Admin Adt) 0847 (Given - Provider: Deng Fuentes, EDWARD) pantoprazole EC (Protonix) tablet 40 mg 40 mg, Oral, DAILY, First dose on Thu06/16/23 at 1538, Until Discontinued, DO NOT CRUSH OR OPEN, Routine 09 (Given - Provider: Enriqueta Ortega RN) 0823 (Given - Provider: Rissa Thomas RN)1357 (APR Hold - Provider: Admin Adt - Reason: Transfer to a Procedural area)182 (APR Unhold - Provider: Admin Adt) 0848 (Given - Provider: Deng Fuentes, EDWARD) polyethylene glycoL (Miralax) packet 17 g 17 g, Oral, 2 TIMES DAILY, First dose (after last modification) on Thu06/28/23 at 2100, Until Discontinued, Routine 2011 (Given - Provider: Josselyn Diaz RN) 08 (Given - Provider: Rissa Thomas RN)1357 ([facility] Hold - Provider: Admin Adt - Reason: Transfer to a Procedural area)182 ([facility] Unhold - Provider: Admin Adt)2100 (Not Given - Provider: Josselyn Diaz RN - Reason: Patient/family refused) 09 (Not Given - Provider: Deng Fuentes RN - Reason: Patient/family refused) scopolamine (Transderm-Scop) 1 mg over 3 days patch 1 patch(Linked Group 3) 1 patch, Transdermal, Administer over 72 Hours, EVERY 72 HOURS, First dose on Thu06/26/23 at 1900, Until Discontinued, Routine 1357 (APR Hold - Provider: Admin Adt - Reason: Transfer to a Procedural area)182 (APR Unhold - Provider: Admin Adt)185 (Not Given [...] Procedural area)1820 (APR Unhold - Provider: Admin Adt)2099 (Not Given - Provider: Josselyn Daiz RN - Reason: Patient/family refused) 09 (Patch Not Verified (add comment) - Provider: Deng Fuentes RN - Comment: Not on) senna-docusate (Pericolace) 8.6-50 mg per tablet 2 tablet 2 tablet, Oral, 2 TIMES DAILY, First dose on Thu06/16/23 at 2100, Until Discontinued, Hold for loose stool. , Routine 900 (Given - Provider: Enriqueta Ortega RN)2010 (Given - Provider: Jossleyn Diaz RN) 08 (Given - Provider: Rissa Thomas RN)1356 (APR Hold - Provider: Admin Adt - Reason: Transfer to a Procedural area)1820 (APR Unhold - Provider: Admin Adt)2099 (Not Given [...] area)1820 (APR Unhold - Provider: Admin Adt) 08 (Given - Provider: Deng Fuentes RN) topiramate (Topamax) tablet 25 mg 25 mg, Oral, 2 TIMES DAILY, First dose on Thu06/16/23 at 2100, Until Discontinued, DO NOT SPLIT, CRUSH OR OPEN, Routine 899 (Given - Provider: Enriqueta Ortega RN)2010 (Given - Provider: Josselyn Diaz RN) 0823 (Given - Provider: Rissa Thomas, EDWARD)1357 ([facility] Hold - Provider: Admin Adt - Reason: Transfer to a Procedural area)1820 ([facility] Unhold - Provider: Admin Adt)2003 (Given - Provider: Josselyn Diaz RN) 0848 (Given - Provider: Deng Fuentes RN) Continuous Medication Order 06/28/2023 06/29/2023 06/30/2023 sodium chloride 0.9% infusion (CANCELED) 100 mL/hr, Intravenous, CONTINUOUS, Starting on 06/28/23 at 0815, Until 06/29/23 at 1833 0737 (New Bag - Provider: Enriqueta Ortega RN)1219 (Rate/Dose Change - Provider: Enriqueta Ortega RN) 0106 (New Bag - Provider: Josselyn Diaz RN)1205 (New Bag - Provider: Rissa Thomas, EDWARD)135 ([facility] Hold - Provider: Admin Adt - Reason: Transfer to a Procedural area)1820 ([facility] Unhold - Provider: Admin Adt)1832 (Stopped - Provider: Rissa Thomas RN) PRN Medication Order 06/28/2023 06/29/2023 06/30/2023 acetaminophen (Tylenol) tablet 650 mg (CANCELED) 650 mg, Oral, EVERY 6 HOURS PRN, Starting on Tu06/16/23 at 1536, Until 06/29/23 at 1901, Pain, Headaches, Fever, Maximum dose of acetaminophen is 4,000 mg from all sources in 24 hours. When ordered for pain, acetaminophen should be given even when other ordered pain medications are indicated., Routine 1357 ([facility] Hold - Provider: Admin Adt - Reason: Transfer to a Procedural area)1727 ([facility] Unhold - Provider: Liyah Figueroa RN)172 (Given - Provider: Liyah Figueroa RN) bisacodyL (Dulcolax) suppository 10 mg 10 mg, Rectal, DAILY PRN, Starting on 06/27/23 at 1401, Until 06/30/23 at 1838, Constipation, Routine 1357 ([facility] Hold - Provider: Admin Adt - Reason: Transfer to a Procedural area)182 ([facility] Unhold - Provider: Admin Adt) BUpivacaine-EPINEPHrine (Marcaine-epiNEPHrine) 0.25 %-1:200,000 injection (CANCELED) PRN, Starting on Thu06/29/23 at 1440, Until Thu06/30/23 at 1838, Intra-Operative (Intra-Procedure), Routine 1440 (Given - Provider: Rhoda Jimenez MD) calcium carbonate (TUMS) chewable tablet 500 mg 500 mg, Oral, EVERY 6 HOURS PRN, Starting on Thu06/26/23 at 1815, Until Thu06/30/23 at 1838, Abdominal cramping, Routine 1357 ([facility] Hold - Provider: Admin Adt - Reason: Transfer to a Procedural area)182 ([facility] Unhold - Provider: Admin Adt) cyclobenzaprine (Flexeril) tablet 10 mg 10 mg, Oral, EVERY 8 HOURS PRN, Starting on Thu06/29/23 at 1902, Until Thu06/30/23 at 1838, Muscle spasms, Routine 195 (Given - Provider: Josselny Diaz RN) diphenhydrAMINE (Benadryl) (50 mg/mL) injection 25 mg 25 mg, Intravenous, 2 TIMES DAILY PRN, Starting on Thu06/17/23 at 1613, Until Thu06/30/23 at 1838, Itching, To be administered 30 min prior to vancomycin infusion, Routine 1357 ([facility] Hold - Provider: Admin Adt - Reason: Transfer to a Procedural area)1821 ([facility] Unhold - Provider: Admin Adt) gelatin adsorbable [...] mL concentrate (2400 mg/10 mL), Routine 1357 ([facility] Hold - Provider: Admin Adt - Reason: Transfer to a Procedural area)1820 ([facility] Unhold - Provider: Admin Adt) ondansetron (pf) (Zofran) (2 mg/mL) injection 4 mg 4 mg, Intravenous, EVERY 8 HOURS PRN, Starting on Thu06/26/23 at 1241, Until Thu06/30/23 at 1838, Nausea 1357 ([facility] Hold - Provider: Admin Adt - Reason: Transfer to a Procedural area)1820 ([facility] Unhold - Provider: Admin Adt) senna-docusate (Pericolace) 8.6-50 mg per tablet 2 tablet 2 tablet, Oral, 2 TIMES DAILY PRN, Starting on 06/27/23 at 1401, Until Thu06/30/23 at 1838, Constipation, Routine 1357 ([facility] Hold - Provider: Admin Adt - Reason: Transfer to a Procedural area)1820 ([facility] Unhold - Provider: Admin Adt) thrombin (bovine) [...] 240 mL, Oral, ONCE, 1 dose, On Thu06/28/23 at 0845, 8 ounce cup = 240 [...] 240 mL, Oral, ONCE, 1 dose, On Thu06/28/23 at 0900, 8 ounce cup = 240 [...] patch. 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
--- OUTSIDE RECORDS SUMMARY | 2024-02-29 15:45 | XMS_ITS | Encounter Summary ---
[facility] [place] [address] Care Team Providers Care Waste Transportation Technician Name Role Phone Peter Lebron Primary Care Provider Reason for Visit * Auth/Cert (Routine) Specialty Diagnoses / Procedures Referred By Contac t Referred To Contact Diagnoses Shunt malfunction Rhoda Jimenez MD [facility] [place] [address] [facility] Referral ID Status Reason Start Date Expiration Date Visits Re quested Visits Authorized [id number] 1 1 Encounter Details Date Type Department Care Team (Late st Contact Info) Description 06/20/2023 1:52 PM EDT Anesthesia [place] [address] Iesha Foley MD [facility] [place] [address] Cl Bustillo MD [facility] [address] Anesthesia Record Procedure Summary Procedure Name Responsible Anesthesiologist Anesthesia Start Time Anesthesia Stop Time @REMOVAL OF COMPLETE CSF SHUNT, W/O REPLACEMENT (WRVU 7.38) (Right: Abdomen) Iesha Foley MD 06/20/23 1352 06/20/23 1444 Events Date Time Event Comment 06/20/2023 1345 1352 AN Verify 1352 Start 1352 An Start Data 1358 An Induction 1401 An Intubation 1402 Anesthesia Ready 1417 Procedure Start 1437 Extubation/LMA Out 1439 an stop data 1444 Recovery or ICU Handoff Candi ent care was transferred to the destination unit staff after review of the patient's medical history, current anesthetic/surgical status and plan, according to the Provider Handoff Checklist. 1444 Stop Meds Name Total IV Lidocaine 50 mg Propofol 350 mg Rocuronium 50 mg PHENYLephrine 80 mcg Ondansetron 4 mg cefTRIAXone 2 g esmolol 100 mg sugammadex 200 mg dexmedeTOMIDine 8 mcg lactated ringers 300 mL * Agents Name O2 * Blood No blood administrations on file. 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); 20 gauge; basilic vein (medial side of arm), left; removed per policy/procedure, site care per policy/procedure; 06/20/23; 202906/17/23 0700 by Deng Fuentes RN 06/20/23 2030 by Josselyn Diaz RN PIV 06/18/23; 0645; [id number] catheter system; 20 gauge; basilic vein (medial side of arm), right; other (see comments), catheter/device intact (leaking); 06/24/23; 1610 06/18/23 0645 by Peter Wood RN 06/24/23 1610 by Linsey Lynn RN Incision 06/18/23; 1533; Righ t; lower quadrant; non-laparascopic puncture; Aspiration drainage W/ MD Arceo, MD Santana; 09/24/23; 0330 06/18/23 1533 by Trevor Sandoval RN 09/24/23 0330 by Ellie Riddle RN ETT Mask Ventilation: Adjunct (2); ETT Type: Cuffed, Oral; ETT Size: 7.5 mm; Mac Blade: 4; Notes: Asleep, Pre-O2, Stylette; Attempts: 1; Laryngoscopy Grade: 1; ETT Placement Verified By: Auscultation, Capnometry, Visual; Secured at Teeth: 24 cm; Inserted by: Byron PALACIO; Removal Date: 06/20/23; Removal Time: 1437 06/20/23 1401 by Rissa Matthews, PIA 06/20/23 1437 by Rissa Matthews CRNA Incision 06/20/23; 1416; Righ t, upper; abdomen; 09/24/23; 03306/20/23 1416 by Maricel Feliciano RN 09/24/23 0330 by Ellie Riddle RN documented in this encounter Social History Tobacco Use Types Packs/Day Years Used Date Smoking Tobacco: Never Smokeless Tobacco: Never Alcohol Use Standard Drinks/Week Comments No 0 (1 standard drink = 0.6 oz pur e alcohol) [facility] Utilities Answer Date Recorded In the past 12 months has [employer], gas, oil, or water [employer] threatened to shut off services in your [...] No 06/18/2023 Housing Stability Vital Sign Answer Juadh e Recorded In the last 12 months, [...] place to sleep or slept in a [place] facility (including now)? No 06/18/2023 DH IPV Inpatient Questions Answer Date Recorded Does Anyone Try to Keep You From Having Contact with Others or Doing Things Outside Your Home? no 06/09/2023 Feels Threatened by Someone no 05/24 Feels Unsafe at Home or Work/School no 06/09/2023 Physical Signs of Abuse Present no 06/09/2023 Sex and Gender Information Value Date Recorded Sex Assigned at Male 10/11/2020 1:38 PM EDT Gender Identity Male 01/18/2020 8:12 PM EST Sexual Orientation Straight 10/11/2020 1: 38 PM EDT documented as of this encounter OR Notes * Anesthesia Postprocedure Evaluation - Iesha Foley MD - 06/20/2023 3:23 PM EDT Department of Anesthesiology Post-procedure Note Patient: Chapin Costa Procedure Summary Date: 06/20/23 Room / Location: [facility] OR [address] [place] [address] MAIN OR Anesthesia Start: 1352 Anesthesia Stop: 1444 Procedure: @REMOVAL OF COMPLETE CSF SHUNT, W/O REPLACEMENT (WRVU 7.38) (Right: Abdomen) Diagnosis: ([employer] shunt revision) Surgeons: Frank Murray MD Responsible Provider: Iesha Foley MD Anesthesia Type: general ASA Status: 3 All Anesthesia Providers: Anesthesiologist: Iesha Foley MD WHARF HAND: Rissa Matthews CRNA Vitals Value Taken Time BP 103/76 06/20/23 1515 Temp 37.5 ??C (99.5 ??F) 06/20/23 1443 Pulse 69 06/20/23 1523 Resp 16 06/20/23 1523 SpO2 92 % 06/20/23 1523 Pain Level Vitals shown include unfiled device data. Patient Location: PACU/[facility] Level of Consciousness: Conscious but Sleepy Pain Management: Satisfactory Analgesia PONV: None Cardiovascular Status: Hemodynamically Stable Respiratory Status: At Baseline Postoperative Fluid Status: Intravascular EUvolemia Possible Anesthetic Complications: NONE apparent at time of evaluation Final Primary Anesthesia Type: General (The anesthetic type performed was the same as planned.) Comments: * Anesthesia Preprocedure Evaluation - Iesha Foley MD - 06/20/2023 7:21 AM EDT Pre-Anesthesia Evaluation for: Chapin Costa a 52 y.o. male. Procedure(s): LAPAROSCOPY, DIAGNOSTIC, ABDOMEN (WRVU 5.14) Patient Active Problem List Diagnosis Date Noted ??? *Shunt malfunction 06/09/2023 ??? Congenital hydrocephalus 05/24/2022 ??? Hydrocephalus 03/08/2020 ??? Seizures 03/23/2019 ??? Cervicalgia 01/22/2017 ??? Headache 01/15/2017 ??? Persistent headaches 01/14/2017 ??? S/P [employer] shunt 01/12/2017 Past Medical History: Diagnosis Date [...] IR All Drainage Procedures Bentley Arceo MD [facility] INTERVENTIONL RAD ??? PRO ALVEOLOPLASTY W EXTRACTIONS, 4 OR MORE TEETH, PER QUADRANT N/A 10/18/2020 ALVEOPLASTY,IN CONJUNCTION WITH EXTRACTIONS,PER QUADRANT,ENT (WRVU 4.06) performed by Shan Rivero MD at [facility] OSC ??? PRO EXTRACTION, ERUPTED TOOTH OR EXPOSED ROOT N/A 10/18/2020 EXTRACTION, ERUPTED TOOTH OR EXPOSED ROOT (WRVU 0.62) performed by Shan Rivero MD at [facility] OSC ??? PRO IMPACT TOOTH REM BONY W/COMP N/A 10/18/2020 SURGICAL EXTRACTIONS, REMOVAL OF IMPACTED TOOTH, COMPLETELY BONY WITH UNUSUAL SURGICAL COMPLICATIONS (WRVU 2.91) performed by Shan Rivero MD at [facility] OSC ??? PRO IMPACT TOOTH REMOV COMP BONY N/A 10/18/2020 SURGICAL EXTRACTIONS, REMOVAL OF IMPACTED TOOTH, COMPLETELY BONY (WRVU 1.93) performed by Shan Rivero MD at [facility] OSC ??? PRO REMOVAL ERUPTED TOOTH WITH ELEVATION OF MUCOPERIOSTEAL FLAP Bilateral 10/18/2020 SURGICAL EXTRACTIONS REQUIRING ELEVATION OF MUCOPERIOSTEAL FLAP AND REMOVAL OF BONE OR SECTION OF TOOTH (WRVU 1.09) performed by Shan Rivero MD at [facility] OSC ??? PRO REPLACEMENT/REVISION, CSF SHUNT Right 06/09/2023 REVISION OR REPLACEMENT CSF SHUNT (WRVU 11.43) performed by Rhoda Jimenez MD at [facility] MAIN OR ??? PRO UNLISTED PROCEDURE NERVOUS SYSTEM Right 05/24/2022 EXPLORATION VENTRICULO-PERITONEAL SHUNT (WRVU 25.48) performed by Rhoda Jimenez MD at [facility] MAIN OR ??? SHOULDER SURGERY ??? [...] hives with latex powdered gloves ??? Penicillins Other reaction(s): Anaphylaxsis, RASH ??? Tegaderm [Transparent Dressings] Itching and Other [...] Physical Exam: Preprocedure Vitals Current as of 06/20/23 0721 BP: 128/95 Pulse: 65 Resp: 11 SpO2: 95 Temp: Height: Weight: BMI: IBW: Last edited 06/20/23 0608 by CLAUDETTE Airway Assessment: Mallampati: III TM distance: >3 FB Neck ROM: full Cardiovascular Assessment: system normal Pulmonary Assessment: unlabored breathing Dental Assessment: (+) edentulous Misc Assessment: IV access: Peripheral line Last Filed Perioperative Cognitive Screening None Anesthesia Plan: ASA 3 general, with a(n) intravenous induction Ever is a 52 y.o. M (BMI 25) with congenital hydrocephalus who underwent shunt revision on 06/07. Presented to ED again on 06/16 with 2 days of abdominal drainage, subjective fevers, and one day of ALICEA. Found to have discontinuity of distal catheter with leakage of CSF out of incision. This is being managed by NSGY team. Pt now presets for laparoscopy and [employer] shunt revision/removal of abandoned distal catheter with gen surg. PMHx was reviewed and is significant for: - Congenital hydrocephalus, aquaductal stenosis - Seizures, none recently - Cervicalgia - Hypothyroidism - Migraines Anesthestic PMHx: Grade 1 marks 2 (06/08), prior grade 1 with Mac 4, multiple prior anesthetics NPO adequate. Meds & allergies reviewed. Denies hx complications with anesthesia. [facility] Other Informed Consent: Anesthetic plan and risks discussed with patient. Use of blood products discussed with patient who consented to blood products. Plan discussed with WHARF HAND. Anesthesia Screening documented in this encounter Plan of Treatment Not on file documented as of this encounter Visit Diagnoses Not on filedocumented in this encounter Administered Medications Inactive Administered Medications - up to 3 most recent administrations Medication Order MAR Action Action Date Dose Rate Site cefTRIAXone (Rocephin) injection Intravenous, PRN, Starting on 06/20/23 at 1407, Until 06/20/23 at 1523, Anesthesia Intra-op, Routine Given 06/20/2023 2:07 PM EDT 2 g dexmedeTOMIDine (Precedex) (4 mcg/mL) bolus injection (Anesthsia) Intravenous, PRN, Starting on 06/20/23 at 1433, Until 06/20/23 at 1523, Anesthesia Intra-op, Routine Given 06/20/2023 2:36 PM EDT 4 mcg Given 06/20/2023 2:33 PM EDT 4 mcg esmoloL (Brevibloc) (10 mg/mL) injection Intravenous, PRN, Starting on 06/20/23 at 1358, Until 06/20/23 at 1523, Anesthesia Intra-op, Routine Given 06/20/2023 2:01 PM EDT 50 mg Given 06/20/2023 1:59 PM EDT 30 mg Given 06/20/2023 1:58 PM EDT 20 mg lactated ringers infusion Intravenous, CONTINUOUS PRN, Starting on 06/20/23 at 1352, Until 06/20/23 at 1523, Anesthesia Intra-op New Bag 06/20/2023 1:52 PM EDT lidocaine (pf) (Xylocaine) (20 mg/mL) 2% injection syringe Intravenous, PRN, Starting on 06/20/23 at 1358, Until 06/20/23 at 1523, Anesthesia Intra-op, Routine Given 06/20/2023 1:58 PM EDT 50 mg ondansetron (pf) (Zofran) (2 mg/mL) injection Intravenous, PRN, Starting on 06/20/23 at 1408, Until 06/20/23 at 1523, Anesthesia Intra-op, Routine Given 06/20/2023 2:08 PM EDT 4 mg PHENYLephrine in NS (PF) (LESVIA-SYNEPHRINE) 0.8 mg/10 mL (80 mcg/mL) multi-dose injection Syringe Intravenous, PRN, Starting on 06/20/23 at 1427, Until 06/20/23 at 1523, Anesthesia Intra-op, Routine Given 06/20/2023 2:27 PM EDT 80 mcg propofoL (Diprivan) 10 mg/mL bolus injection (Anesthesia) Intravenous, PRN, Starting on 06/20/23 at 1358, Until 06/20/23 at 1523, Anesthesia Intra-op Given 06/20/2023 2:32 PM EDT 150 mg Given 06/20/2023 2:01 PM EDT 50 mg Given 06/20/2023 1:58 PM EDT 150 mg rocuronium (Zemuron) (10 mg/mL) multi-dose injection Intravenous, PRN, Starting on 06/20/23 at 1359, Until 06/20/23 at 1523, Anesthesia Intra-op, Routine Given 06/20/2023 1:58 PM EDT 50 mg sugammadex (Bridion) 100 mg/mL injection Intravenous, PRN, Starting on 06/20/23 at 1427, Until 06/20/23 at 1523, Anesthesia Intra-op, Routine Given 06/20/2023 2:27 PM EDT 200 mg documented in this encounter Care Teams Waste Transportation Technician Relationship Specialty Start Date End Date Peter Lebron PA [address] [place] [address] PCP - General Internal Medicine 08/21/22 documented as of this encounter
--- OUTSIDE RECORDS SUMMARY | 2024-02-29 15:46 | XMS_ITS | Encounter Summary ---
[facility] Organization [facility] [place] [address] Care Team Providers Care Military Lawyer Name Role Phone Peter Lebron Primary Care Provider Reason for Visit * Reason Comments Post-op Problem Abdominal Pain * Auth/Cert (Routine) Specialty Diagnoses / Procedures Referred By Contnu t Referred To Contact Diagnoses Shunt malfunction Rhoda Jimenez MD [facility] [place] [address] [facility] Referral ID Status Reason Start Date Expiration Date Visits Re quested Visits Authorized [id number] 1 1 Encounter Details Date Type Department Care Team (Late st Contact Info) Description 06/20/2023 1:00 PM EDT - 06/20/2023 3:41 PM EDT [place] [address] Arely Murray MD [facility] [address] @REMOVAL OF COMPLETE CSF SHUNT, W/O REPLACEMENT (WRVU 7.38) Social History Tobacco Use Types Packs/Day Years Used Date Smoking Tobacco: Never Smokeless Tobacco: Never Alcohol Use Standard Drinks/Week Comments No 0 (1 standard drink = 0.6 oz pur e alcohol) [facility] Utilities Answer Date Recorded In the [...] slept in a residential (including now)? No 06/18/2023 DH IPV Inpatient [...] Sign Reading Time Taken Comments Blood Pressure 138/116 06/20/2023 3:31 PM EDT Pulse 70 06/20/2023 3:31 PM EDT Temperature 37.5 ??C (99.5 ??F) 06/20/2023 2:43 PM ED T Respiratory Rate 10 06/20/2023 3:31 PM EDT Oxygen Saturation 95% 06/20/2023 3:31 PM EDT Inhaled Oxygen Concentration - - Weight - - Height - - Body Mass Index - - documented in this encounter Discharge Summaries * [...] Hydrocephalus Seizures Cervicalgia Headache Persistent headaches S/P MAINTENANCE CLERK shunt History of Presentation: Per review of [...] On 06/16/23, Chapin Costa was admitted to [facility] for treatment of abdominal fluid collections and distal shunt catheter reimplantation. On 06/17, IR aspirated and collected cultures of the superficial abdominal fluid collection. On 06/20/23, general surgery obtained deep peritoneal fluid collection cultures during operation to remove the distal portion of Mr. Costa's intra-abdominal MAINTENANCE CLERK shuntcatheter. Abdominal cultures eventually grew E. faecalis for which antibiotics were narrowed by infectious diease from vancomycin + ceftriaxone to ampicillin sulbactam on 06/23/23. CSF cultures showedno growth, result finalized 06/27/23. Mr. Costa developed decreased appetite, abdominal distention, nausea, one episode of vomiting, found to have partial SBO on 06/27 which resolved by 06/28. 06/28 Mr. Costa underwent surgery for removal of externalized MAINTENANCE CLERK shunt catheter and replacement with a new [...] who have questions please contact the health customer care representative that requested your imaging first. Electronically signed by: Emerita Bernstein MD, [facility] ([phone]), at 06/30/2023 9:07 AM XR Chest One [...] who have questions please contact the health customer care representative that requested your imaging first. DOC: TELEMETRY [...] who have questions please contact the health customer care representative that requested your imaging first. Electronically signed by: Kandi Duarte MD, [facility] ([phone]), at 06/28/2023 10:35 AM XR Abdomen Flat [...] who have questions please contact the health customer care representative that requested your imaging first. Electronically signed by: Kandi Duarte MD, [facility] ([phone]), at 06/27/2023 8:45 PM XR Abdomen 1 view (Generic) Result Date: 06/27/2023 EXAMINATION: XR ABDOMEN 1 VIEW (GENERIC) CLINICAL HISTORY: Please obtain upright. Assess for intra-abdominal pathology with recent intra-abdominal infection and new emesis/bloating. TECHNIQUE: AP abdominal radiograph (2 images) COMPARISON: CT abdomen pelvis 06/16/2023 FINDINGS: The lower abdomen andpelvis are excluded from the egqxe-[id number]. Imaged bowel loops are nondilated. No free [...] who have questions please contact the health customer care representative that requested your imaging first. Electronically signed by: Kandi Duarte MD, [facility] ([phone]), at 06/27/2023 7:36 PM SCAN DOC: TELEMETRY [...] who have questions please contact the health customer care representative that requested your imaging first. Electronically signed by: MD Lakshmi, [facility] ([phone]), at 06/16/2023 2:49 PM XR Shunt Series Result Date: 06/16/2023 EXAMINATION: XR SHUNT SERIES CLINICAL HISTORY: recent revision recent revision, new abdominal pain,headache. TECHNIQUE: Multiple AP and lateral views of skull, chest, abdomen. COMPARISON: Radiographshunt series 06/09/2023 FINDINGS: Right frontal approach MAINTENANCE CLERK shunt catheter, with the intracranial portion terminating [...] gas pattern. Cholecystectomy clips Right frontal approach MAINTENANCE CLERK shunt catheter with focal discontinuity at the [...] who have questions please contact the health customer care representative that requested your imaging first. Head wo [...] who have questions please contact the health customer care representative that requested your imaging first. Electronically signed by: Eris Hicks MD, [facility] ([phone]), at 06/16/2023 11:11 AM XR Shunt Series [...] who have questions please contact the health customer care representative that requested your imaging first.Electronically signed by: Aria Tsai MD, [facility] ([phone]), at 06/10/2023 10:11 AM SCAN DOC: TELEMETRY STRIPS Result Date: 06/09/2023 Ordered by an unspecified provider. Request For 2nd Read CT Abdomen & Pelvis Result Date: 06/09/2023 EXAMINATION: REQUEST FOR 2ND READ CT ABDOMEN AND PELVIS CLINICAL HISTORY: abdominal pain; Sending Institution [facility]; Date of exam [id number]; I believe a [...] present in the left omentum. Abdominal wall: MAINTENANCE CLERK shunt is fractured in the right upper abdominalwall, (series 4 image 94). MAINTENANCE CLERK shunt catheter enters the peritoneal space through the right rectus abdominal muscle. Bilateral small fat-containing inguinal hernias. Reproductive organs: Normal. Osseous structures: No suspicious lesions. Mild degenerative changes in the lumbar spine. 1. Fractured MAINTENANCE CLERK shunt catheter in the subcutaneous tissues of [...] who have questions please contact the health customer care representative that requested your imaging first. Electronically signed by: Kierra Newsome MD, [facility] ([phone]), at 06/09/2023 7:[address] Head wo [...] patients who have questions please contactthe health customer care representative that requested your imaging first. Electronically signed by: Rich Ray MD, [facility] ([phone]), at 06/08/2023 6:59 PM XR Shunt Series [...] who have questions please contact the health customer care representative that requested your imaging first. Film Library- Storage Only CT Head Result [...] Provider Department Dept Phone 07/09/2023 9:40 AM [facility] CT [address] Scan at [facility] Arrive at: 3Z RADIOLOGY [phone] 07/09/2023 10:40 AM Cl Atkins PA Neurosurgery at [facility] Arrive at: Kitchen Aide Area 3C [phone] Please dispose of unused excess opioids before your appointment or bring them with you to the appointment and we will help you dispose of them correctly. 07/15/2023 2:30 PM Valdo Awan MD Infectious Disease at [facility] Arrive at: Kitchen Aide Area 5C [phone] Future Orders Complete By Expires Referral to Home Health [REF34 Custom] As directed Process Instructions: If no progress note charted, please enter Clinical details in comments. Scheduling Instructions: Comments: Please evaluate Chapin Costa for admission to Home Health. [address] [facility] [address] (home) Date of : 1970 Inpatient DOCUMENTATION FOR VNA SERVICES (INCLUDING THOSE PATIENTS WITH MEDICARE COVERAGE REQUIRING HOME VNA SERVICES AND/OR HOSPICE SERVICES) PATIENT'S LOCATION: Chapin Costa [address] [facility] [address] Battery Inspector's Name: self; caregiver; family In discussion with the attending physician, it is certified that this patient is under their care and that they, or a Nurse Practitioner,Clinical Nurse specialist or Physician Business Data Analyst who is working directly with them, had [...] program if appropriate. HOME HEALTH CARE AGENCY: [facility] [address] [facility] [address] PHONE: [phone] FAX: [phone] Start of care: within 24 to 48 [...] MARVA Gordon [address] / [facility] [address] All A agencies which cover the area of patient's [...] Vancomycin Hcl Commonly used phone numbers Neuro-oncology [phone] Radiation oncology [phone] Endocrinology [phone] Infectious disease [phone] Neurology [phone] Hematology/Oncology [phone] Plastic Surgery [phone] Trauma/General Surgery [phone] Urology [phone] Instructions Given to Patient at Discharge: Patient [...] to pass. These medications can be obtained mive-suy-[id number] and their use is recommended on an [...] Time Provider Department Center 07/09/2023 9:40 AM [facility] CT [address] [facility] RAD CT [facility] Rad 07/09/2023 10:40 AM Cl Atkins PA [facility] [id number] [facility] 07/15/2023 2:30 PM Valdo wAan MD [facility] ID [id number] [facility] Incision: [x] Please follow up for suture/staple removal around 07/20/23 when you follow up with Cl Atkins PA-C. Appointments: [x] Please follow up in the Neurosurgery Clinic in 4-6 weeks. Please call the Neurosurgery Office at [phone] if you do not receive a scheduled appointment within two weeks. [x] Please follow up with Cl Atkins PA-C, in 2 weeks. Your follow-up appointment will be with: [x] Dr. Jimenez HOW TO REACH NEUROSURGERY Office Hours (Thursday through Thursday 8am-5pm): Call On weekends or after office hours (after 5pm or before 8am): Call [phone] and ask the cloth shrinking machine operator to page the Neurosurgery Resident/Advanced Practice Provider composition professor. *Your surgeon may not be information systems auditor (especially after office hours or on the weekend) so be ready totell about yourself and your surgery when you call. Neurosurgery Providers Adult Neurosurgery Dr. Ge Medina Pediatric Neurosurgery Dr. Tracey Lee Advanced Practice Providers Sonia Escalona, Nurse Practitioner (outpatient telehealth) Thelma Hebert, Physician Business Data Analyst (inpatient/outpatient: neuro-oncology) Mirian Murrieta, Physician Business Data Analyst (inpatient) Claire Brody, Physician Business Data Analyst (inpatient) Roberto Samano, Physician Business Data Analyst (inpatient) Dennis Calix, Nurse Practitioner (outpatient: pediatric) Ness Vance, Nurse Practitioner (outpatient: vascular) Mary Jessica, Physician Business Data Analyst (outpatient: spine) Cl Atkins, Physician Business Data Analyst (outpatient) Outpatient Nurses EDWARD Knox PA documented [...] their team, please call their office at [phone]. Infectious Disease is treating your abdominal infection. They would like you to continue taking theantibiotic, Augmentin, until you see them for your follow up appointment in 3-4 weeks. -Your appointment is scheduled for 07/15/23. - Infectious Disease can be reached at [phone] for any questions Discharge Instructions For Your [...] is during regular office hours, please call [phone]. If it is after regular office hours, or on weekends or holidays, please call [phone] and ask to speak to the Cable Repairer composition professor for Interventional Radiology. Revised 03/09/15 * Patient [...] to pass. These medications can be obtained hniy-fno-ictrjdz and their use is recommended on an [...] Time Provider Department Center 07/09/2023 9:40 AM [facility] CT [address] [facility] RAD CT [facility] Rad 07/09/2023 10:40 AM Cl Atkins PA [facility] [id number] [facility] 07/15/2023 2:30 PM Valdo Awan MD [facility] ID 5C [facility] Incision: [x] Please follow up for suture/staple removal around 07/20/23 when you follow up with Cl Atkins PA-C. Appointments: [x] Please follow up in the Neurosurgery Clinic in 4-6 weeks. Please call the Neurosurgery Office at [phone] if you do not receive a scheduled appointment within two weeks. [x] Please follow up with Cl Atkins PA-C, in 2 weeks. Your follow-up appointment will be with: [x] Dr. Jimenez HOW TO REACH NEUROSURGERY Office Hours (Thursday through Thursday 8am-5pm): Call On weekends or after office hours (after 5pm or before 8am): Call [phone] and ask the cloth shrinking machine operator to page the Neurosurgery Resident/Advanced Practice Provider composition professor. *Your surgeon may not be information systems auditor (especially after office hours or on the weekend) so be ready totell about yourself and your surgery when you call. Neurosurgery Providers Adult Neurosurgery Dr. Ge Medina Pediatric Neurosurgery Dr. Tracey Lee Advanced Practice Providers Sonia Escalona, Nurse Practitioner (outpatient telehealth) Thelma Hebert, Physician Business Data Analyst (inpatient/outpatient: neuro-oncology) Mirian Murrieta Physician Business Data Analyst (inpatient) Claire Brody Physician Business Data Analyst (inpatient) Roberto Samano Physician Business Data Analyst (inpatient) Dennis Calix, Nurse Practitioner (outpatient: pediatric) Ness Vance, Nurse Practitioner (outpatient: vascular) Mary Jessica, Physician Business Data Analyst (outpatient: spine) Cl Atkins Physician Business Data Analyst (outpatient) Outpatient Nurses Jose Rafael Kline RN [...] Ricci MD - 06/30/2023 7:08 AM EDT [facility] Neurosurgery Progress Note Date: 06/30/2023, HD: 14 [...] 06/16/2023 11:01 AM) Result Value WORKSTATION ID [id number] Impression Right frontal approach MAINTENANCE CLERK shunt catheter with focal discontinuity at the [...] who have questions please contact the health customer care representative that requested your imaging first. Electronically signed by: Kraig Rizvi MD, [facility] ([phone]), at 06/16/2023 11:[address] Head wo Contrast (Generic) (Exam End: 06/16/2023 10:58 AM) Result Value WORKSTATION ID [id number] Impression Stable examination with no hydrocephalus or other acute abnormality. Thank you for letting us participate in the care of this patient. If you are a health care provider and have any questions regarding this report, please contact the number below. For patients who have questions please contact the health customer care representative that requested your imaging first. Electronically signed by: Eris Hicks MD, [facility] ([phone]), at 06/16/2023 11:[address] Abdomen & Pelvis w Contrast (Exam End: 06/16/2023 2:04 PM) Result Value WORKSTATION ID [id number] Impression 1. Interval revision of the shunt [...] who have questions please contact the health customer care representative that requested your imaging first. Electronically signed by: Adrianne Lao MD, [facility] ([phone]), at 06/16/2023 2:49 PM XR Abdomen 1 view (Generic) (Exam End: 06/27/2023 7:16 PM) Result Value WORKSTATION ID [id number] Impression Nonobstructive bowel gas pattern with note [...] who have questions please contact the health customer care representative that requested your imaging first. Electronically signed by: Kandi Duarte MD, [facility] ([phone]), at 06/27/2023 7:36 PM XR Abdomen Flat & Upright (Exam End: 06/27/2023 8:13 PM) Result Value WORKSTATION ID [id number] Impression Ileus. No perforation. No obstruction. I [...] who have questions please contact the health customer care representative that requested your imaging first. Electronically signed by: Kandi Duarte MD, [facility] ([phone]), at 06/27/2023 8:[address] Abdomen & Pelvis w Contrast (Exam End: 06/28/2023 9:54 AM) Result Value WORKSTATION ID [id number] Impression 1. No new intra-abdominal or pelvic [...] who have questions please contact the health customer care representative that requested your imaging first. Electronically signed by: Kandi Duarte MD, [facility] ([phone]), at 06/28/2023 10:35 AM Problem List: Patient Active Problem List Diagnosis Code S/P MAINTENANCE CLERK shunt Z98.2 Persistent headaches R51.9 Headache R51.9 Cervicalgia M54.2 Seizures R56.9 Hydrocephalus G91.9 Congenital hydrocephalus Q03.9 Shunt malfunction T85.618A Laila Ricci MD Please page #[phone] with questions regarding all established patients, or #[phone] for first time consults on new patients. * Laila Ricci MD - 06/29/2023 4:57 PM EDT [facility] Neurosurgery Progress Note Date: 06/29/2023, HD: 13 [...] 06/16/2023 11:01 AM) Result Value WORKSTATION ID [id number] Impression Right frontal approach MAINTENANCE CLERK shunt catheter with focal discontinuity at the [...] who have questions please contact the health customer care representative that requested your imaging first. Electronically signed by: Kraig Rizvi MD, [facility] ([phone]), at 06/16/2023 11:[address] Head wo Contrast (Generic) (Exam End: 06/16/2023 10:58 AM) Result Value WORKSTATION ID [id number] Impression Stable examination with no hydrocephalus or other acute abnormality. Thank you for letting us participate in the care of this patient. If you are a health care provider and have any questions regarding this report, please contact the number below. For patients who have questions please contact the health customer care representative that requested your imaging first. Electronically signed by: Eris Hicks MD, [facility] ([phone]), at 06/16/2023 11:[address] Abdomen & Pelvis w Contrast (Exam End: 06/16/2023 2:04 PM) Result Value WORKSTATION ID [id number] Impression 1. Interval revision of the shunt [...] who have questions please contact the health customer care representative that requested your imaging first. Electronically signed by: Adrianne Lao MD, [facility] ([phone]), at 06/16/2023 2:49 PM XR Abdomen 1 view (Generic) (Exam End: 06/27/2023 7:16 PM) Result Value WORKSTATION ID [id number] Impression Nonobstructive bowel gas pattern with note [...] who have questions please contact the health customer care representative that requested your imaging first. Electronically signed by: Kandi Duarte MD, [facility] ([phone]), at 06/27/2023 7:36 PM XR Abdomen Flat & Upright (Exam End: 06/27/2023 8:13 PM) Result Value WORKSTATION ID [id number] Impression Ileus. No perforation. No obstruction. I [...] who have questions please contact the health customer care representative that requested your imaging first. Electronically signed by: Kandi Duarte MD, [facility] ([phone]), at 06/27/2023 8:[address] Abdomen & Pelvis w Contrast (Exam End: 06/28/2023 9:54 AM) Result Value WORKSTATION ID [id number] Impression 1. No new intra-abdominal or pelvic [...] who have questions please contact the health customer care representative that requested your imaging first. Problem List: Patient Active Problem List Diagnosis Code S/P MAINTENANCE CLERK shunt Z98.2 Persistent headaches R51.9 Headache R51.9 Cervicalgia M54.2 Seizures R56.9 Hydrocephalus G91.9 Congenital hydrocephalus Q03.9 Shunt malfunction T85.618A Laila Ricci MD Please page #[phone] with questions regarding all established patients, or #[phone] for first time consults on new patients. [...] Ricci MD - 06/29/2023 5:58 AM EDT [facility] Neurosurgery Progress Note Date: 06/29/2023, HD: 13 [...] 06/16/2023 11:01 AM) Result Value WORKSTATION ID [id number] Impression Right frontal approach MAINTENANCE CLERK shunt catheter with focal discontinuity at the [...] who have questions please contact the health customer care representative that requested your imaging first. Electronically signed by: Kraig Rizvi MD, [facility] ([phone]), at 06/16/2023 11:[address] Head wo Contrast (Generic) (Exam End: 06/16/2023 10:58 AM) Result Value WORKSTATION ID [id number] Impression Stable examination with no hydrocephalus or other acute abnormality. Thank you for letting us participate in the care of this patient. If you are a health care provider and have any questions regarding this report, please contact the number below. For patients who have questions please contact the health customer care representative that requested your imaging first. Electronically signed by: Eris Hicks MD, [facility] ([phone]), at 06/16/2023 11:[address] Abdomen & Pelvis w Contrast (Exam End: 06/16/2023 2:04 PM) Result Value WORKSTATION ID [id number] Impression 1. Interval revision of the shunt [...] who have questions please contact the health customer care representative that requested your imaging first. Electronically signed by: Adrianne Lao MD, [facility] ([phone]), at 06/16/2023 2:49 PM XR Abdomen 1 view (Generic) (Exam End: 06/27/2023 7:16 PM) Result Value WORKSTATION ID [id number] Impression Nonobstructive bowel gas pattern with note [...] who have questions please contact the health customer care representative that requested your imaging first. Electronically signed by: Kandi Duarte MD, [facility] ([phone]), at 06/27/2023 7:36 PM XR Abdomen Flat & Upright (Exam End: 06/27/2023 8:13 PM) Result Value WORKSTATION ID [id number] Impression Ileus. No perforation. No obstruction. I [...] who have questions please contact the health customer care representative that requested your imaging first. Electronically signed by: Kandi Duarte MD, [facility] ([phone]), at 06/27/2023 8:[address] Abdomen & Pelvis w Contrast (Exam End: 06/28/2023 9:54 AM) Result Value WORKSTATION ID [id number] Impression 1. No new intra-abdominal or pelvic [...] who have questions please contact the health customer care representative that requested your imaging first. Electronically signed by: Kandi Duarte MD, [facility] ([phone]), at 06/28/2023 10:35 AM Problem List: Patient Active Problem List Diagnosis Code S/P MAINTENANCE CLERK shunt Z98.2 Persistent headaches R51.9 Headache R51.9 Cervicalgia M54.2 Seizures R56.9 Hydrocephalus G91.9 Congenital hydrocephalus Q03.9 Shunt malfunction T85.618A Laila Ricci MD Please page #[phone] with questions regarding all established patients, or #[phone] for first time consults on new patients. [...] Clifton MD - 06/28/2023 8:52 AM EDT [facility] Neurosurgery Progress Note Date: 06/28/2023, HD: 12 [...] 06/16/2023 11:01 AM) Result Value WORKSTATION ID [id number] Impression Right frontal approach MAINTENANCE CLERK shunt catheter with focal discontinuity at the [...] who have questions please contact the health customer care representative that requested your imaging first. Electronically signed by: Kraig Rizvi MD, [facility] ([phone]), at 06/16/2023 11:[address] Head wo Contrast (Generic) (Exam End: 06/16/2023 10:58 AM) Result Value WORKSTATION ID [id number] Impression Stable examination with no hydrocephalus or other acute abnormality. Thank you for letting us participate in the care of this patient. If you are a health care provider and have any questions regarding this report, please contact the number below. For patients who have questions please contact the health customer care representative that requested your imaging first. Electronically signed by: Eris Hicks MD, [facility] ([phone]), at 06/16/2023 11:[address] Abdomen & Pelvis w Contrast (Exam End: 06/16/2023 2:04 PM) Result Value WORKSTATION ID [id number] Impression 1. Interval revision of the shunt [...] who have questions please contact the health customer care representative that requested your imaging first. Electronically signed by: Adrianne Lao MD, [facility] ([phone]), at 06/16/2023 2:49 PM XR Abdomen 1 view (Generic) (Exam End: 06/27/2023 7:16 PM) Result Value WORKSTATION ID [id number] Impression Nonobstructive bowel gas pattern with note [...] who have questions please contact the health customer care representative that requested your imaging first. Electronically signed by: Kandi Duarte MD, [facility] ([phone]), at 06/27/2023 7:36 PM XR Abdomen Flat & Upright (Exam End: 06/27/2023 8:13 PM) Result Value WORKSTATION ID [id number] Impression Ileus. No perforation. No obstruction. I [...] who have questions please contact the health customer care representative that requested your imaging first. Electronically signed by: Kandi Duarte MD, [facility] ([phone]), at 06/27/2023 8:45 PM Problem List: Patient Active Problem List Diagnosis Code S/P MAINTENANCE CLERK shunt Z98.2 Persistent headaches R51.9 Headache R51.9 Cervicalgia M54.2 Seizures R56.9 Hydrocephalus G91.9 Congenital hydrocephalus Q03.9 Shunt malfunction T85.618A Olga Clifton MD Please page #[phone] with questions regarding all established patients, or #[phone] for first time consults on new patients. * Josselyn Diaz RN - 06/27/2023 9:07 PM EDT Page Sent Successfully Page Confirmation To Pager number: [phone] From Submitter: Josselyn Diaz Urgency Level: FYI Callback Number: [id number] The following Message was sent: [FYI] - Callback:[id number] RM 346, Chapin Costa KUB resulted, Illeus - Josselyn Diaz The following status was returned from the beverage server: Page for [phone] successfully sent to [phone] having status of Available. * Olga Clifton MD - 06/27/2023 8:09 AM EDT [facility] Progress Note Date: 06/27/2023, HD: 11 [...] 06/16/2023 11:01 AM) Result Value WORKSTATION ID [id number] Impression Right frontal approach MAINTENANCE CLERK shunt catheter with focal discontinuity at the [...] who have questions please contact the health customer care representative that requested your imaging first. Electronically signed by: Kraig Rizvi MD, [facility] ([phone]), at 06/16/2023 11:[address] Head wo Contrast (Generic) (Exam End: 06/16/2023 10:58 AM) Result Value WORKSTATION ID [id number] Impression Stable examination with no hydrocephalus or other acute abnormality. Thank you for letting us participate in the care of this patient. If you are a health care provider and have any questions regarding this report, please contact the number below. For patients who have questions please contact the health customer care representative that requested your imaging first. Electronically signed by: Eris Hicks MD, [facility] ([phone]), at 06/16/2023 11:[address] Abdomen & Pelvis w Contrast (Exam End: 06/16/2023 2:04 PM) Result Value WORKSTATION ID [id number] Impression 1. Interval revision of the shunt [...] who have questions please contact the health customer care representative that requested your imaging first. Electronically signed by: [facility] ([phone]), at 06/16/2023 2:49 PM Problem List: Patient Active Problem List Diagnosis Code S/P MAINTENANCE CLERK shunt Z98.2 Persistent headaches R51.9 Headache R51.9 Cervicalgia M54.2 Seizures R56.9 Hydrocephalus G91.9 Congenital hydrocephalus Q03.9 Shunt malfunction T85.618A Olga Clifton MD Please page #[phone] with questions regarding all established patients, or #[phone] for first time consults on new patients. * Laila Ricci MD - 06/26/2023 5:44 AM EDT [facility] Progress Note Date: 06/26/2023, HD: 10 [...] Patient Active Problem List Diagnosis Code S/P MAINTENANCE CLERK shunt Z98.2 Persistent headaches R51.9 Headache R51.9 Cervicalgia M54.2 Seizures R56.9 Hydrocephalus G91.9 Congenital hydrocephalus Q03.9 Shunt malfunction T85.618A Laila Ricci MD Please page #[phone] with questions regarding all established patients, or #[phone] for first time consults on new patients. [...] Ricci MD - 06/25/2023 7:15 AM EDT [facility] Progress Note Date: 06/25/2023, HD: 9 [...] Patient Active Problem List Diagnosis Code S/P MAINTENANCE CLERK shunt Z98.2 Persistent headaches R51.9 Headache R51.9 Cervicalgia M54.2 Seizures R56.9 Hydrocephalus G91.9 Congenital hydrocephalus Q03.9 Shunt malfunction T85.618A Laila Ricci MD Please page #[phone] with questions regarding all established patients, or #[phone] for first time consults on new patients. * Shagufta Santo RD - 06/24/2023 8:56 AM EDT Nutrition [...] 6 EVD (External Ventricular Drain) 06/16/23 1900 06/16/231899 -- 8 Oxygen Therapy / Airway Device: [...] for hospital length of stay nutrition visit, editorial writer met with Ever at bedside. Ever reports good appetite, eating 100% of meals (confirmed in flowsheets). He notes that he may havea smaller appetite than REGISTERED TRAVEL NURSE, but feels he is getting enough. Per [...] region (triceps/biceps): None present Lean Muscle Loss [place] region (temporalis muscle): None present Clavicle bone region (pectoralis major): None present Dorsal hand (interosseous muscle): None present Shoulder (deltoid): None present Scapular bone region (latissimus dorsi, trapezius muscles): Not assessed Thigh region (quadriceps muscle): None present Posterior calf region (gastrocnemius muscle): None present Malnutrition Diagnosis: Not identified (Norberto, JEAN J Parenteral Enteral Nutr. 2011; 36(3): 273-83) Nutrition to continue to follow up while inpatient Shagufta Mendez, MS, RDN, LD Clinical Nutrition * Laila Ricci MD - 06/24/2023 5:28 AM EDT [facility] Progress Note Date: 06/24/2023, HD: 8 [...] Patient Active Problem List Diagnosis Code S/P MAINTENANCE CLERK shunt Z98.2 Persistent headaches R51.9 Headache R51.9 Cervicalgia M54.2 Seizures R56.9 Hydrocephalus G91.9 Congenital hydrocephalus Q03.9 Shunt malfunction T85.618A Laila Ricci MD Please page #[phone] with questions regarding all established patients, or #[phone] for first time consults on new patients. [...] distal catheter within the RUQ, presented to [facility] on 06/15 with 2 days of abdominal pain, subjective fevers, and one day of headache, currently being managed for intra-abdominal infection at the site of MAINTENANCE CLERK shunt without any evidence of shunt infection [...] OR on 06/19 for removal of distal/intra-abdominal MAINTENANCE CLERK shunt catheter--removed 7.5 cm of the cephalad portion of the shunt. Path sent. In regards of timing for reinternalizing MAINTENANCE CLERK shunt, ok to revise at this time. [...] 3 to 4 weeks. -Okay to revise MAINTENANCE CLERK shunt at this time -Rest of the care per primary team Patient discussed with ID attending Dr. Armijo. Thank you for the consult. ID consult service will sign off. Please do not hesitate to page with any questions or concerns. Please page ID Green team (pager [phone]) with questions or concerns. Stacy Adamson MD Fellow, Infectious Disease Pager: [phone] Epic Chat 06/23/2023 Associated attestation - Memo Armijo MD - 06/23/2023 9:16 PM EDT Attending Addendum: I have seen and examined the patient, reviewed the data and agree with the note by Dr. Adamson. * Main Trevino MD - 06/23/2023 6:30 AM EDT [facility] Progress Note Date: 06/23/2023, HD: 7 [...] R chest is dry. Labs/Imaging: Reviewed in [facility]. Problem List: Patient Active Problem List Diagnosis Code S/P MAINTENANCE CLERK shunt Z98.2 Persistent headaches R51.9 Headache R51.9 Cervicalgia M54.2 Seizures R56.9 Hydrocephalus G91.9 Congenital hydrocephalus Q03.9 Shunt malfunction T85.618A Main Trevino MD Please page #[phone] with questions regarding all established patients, or #[phone] for first time consults on new patients. * Carley Sun, [facility] - 06/22/2023 4:42 PM EDT Images from [...] to ampicillin-sulbactam 3G IV Q6h per TYRELL Green team recs. This assess risk of immediate [...] MS Clinical Pharmacist Lead - Infectious Disease [facility] [phone] Pager [phone] [employer] Secure Chat * Stacy Adamson MD - [...] distal catheter within the RUQ, presented to [facility] on 06/15 with 2 days of abdominal pain, subjective fevers, and one day of headache, currently being managed for intra-abdominal infection at the site of MAINTENANCE CLERK shunt without any evidence of shunt infection [...] OR on 06/19 for removal of distal/intra-abdominal MAINTENANCE CLERK shunt catheter--removed 7.5 cm of the cephalad portion of the shunt. Path sent. In regards of timing for reinternalizing MAINTENANCE CLERK shunt, If CSF remains negative it would [...] hours. -In regards of timing for reinternalizing MAINTENANCE CLERK shunt, If CSF remains negative it would [...] any questions or concerns. Please page ID Sundar aden (pager [phone]) with questions or concerns. Stacy Adamson MD Fellow, Infectious Disease Pager: [phone] Epic Chat 06/22/2023 Associated attestation - Memo [...] Ricci MD - 06/22/2023 6:05 AM EDT [facility] Progress Note Date: 06/22/2023, HD: 6 [...] RUE: 06/27 LUE: 06/27 RLE: 06/27 LLE: 5 SILTx4 R cranial incision well healed, no areas of erythema, no drainage Abdominal incision CDI with dermabond/absorbable suture Abdomen nontender Drains: Patent VPS catheter with clear output. Dressing on R chest is dry. Labs/Imaging: Reviewed in [employer]. Problem List: Patient Active Problem List Diagnosis Code S/P MAINTENANCE CLERK shunt Z98.2 Persistent headaches R51.9 Headache R51.9 Cervicalgia M54.2 Seizures R56.9 Hydrocephalus G91.9 Congenital hydrocephalus Q03.9 Shunt malfunction T85.618A Laila Ricci MD Please page #[phone] with questions regarding all established patients, or #[phone] for first time consults on new patients. * Mary Hall MD - 06/21/2023 4:40 PM EDT Infectious Diseases Consultation Progress Note Major 24 Hour Events / Subjective: Taken to the OR on 06/19 for removal of the distal/intra-abdominal MAINTENANCE CLERK shunt catheter 30cm in length,removed 7.5cm of [...] reviewed Procedures - reveiwed External Records in [facility] - reviewed. Impression & Recommendations: 52 year-old [...] represented abscesses in the setting of recent MAINTENANCE CLERK shunt revision he was continued on vancomycin and ceftriaxone. Taken to the OR on 06/19 for removal of the distal/intra-abdominal MAINTENANCE CLERK shunt cath eter 30cm in length, removed [...] will continue to follow along. Please page [phone] with any questions. Uriel Roy MD Infectious [...] Progress Note Admission Date: 06/16/2023 Primary Team: NSGY ID: Chapin Costa is a 52 y.o. [...] intra-abdominal fluid collection. Procedures: 06/16/23: externalization of MAINTENANCE CLERK shunt (NSGY) 06/20/23: OR for removal of the distal/intra-abdominal MAINTENANCE CLERK shunt catheter 30cm in length, removed 7.5cm [...] Now s/p removal of the remnant intraabdominal MAINTENANCE CLERK shunt 06/20/23. Patient has recovered well from [...] If you have any questions, please page [phone]. Consult service will sign off Vivian Lawson MD 06/21/2023 Acute Care Surgery Service p.[phone] * Laila Ricci MD - 06/21/2023 5:40 AM EDT [facility] Progress Note Date: 06/21/2023, HD: 5 [...] Patient Active Problem List Diagnosis Code S/P MAINTENANCE CLERK shunt Z98.2 Persistent headaches R51.9 Headache R51.9 Cervicalgia M54.2 Seizures R56.9 Hydrocephalus G91.9 Congenital hydrocephalus Q03.9 Shunt malfunction T85.618A Laila Ricci MD Please page #[phone] with questions regarding all established patients, or #[phone] for first time consults on new patients. [...] Ricci MD - 06/20/2023 6:23 AM EDT [facility] Progress Note Date: 06/20/2023, HD: 4 [...] Patient Active Problem List Diagnosis Code S/P MAINTENANCE CLERK shunt Z98.2 Persistent headaches R51.9 Headache R51.9 Cervicalgia M54.2 Seizures R56.9 Hydrocephalus G91.9 Congenital hydrocephalus Q03.9 Shunt malfunction T85.618A Laila Ricci MD Please page #[phone] with questions regarding all established patients, or #[phone] for first time consults on new patients. [...] intra-abdominal fluid collection. Procedures: 06/16/23: externalization of MAINTENANCE CLERK shunt (NSGY) Subjective Interval Events/Subjective: - NAOE [...] for foreign body removal of the remnant MAINTENANCE CLERK shunt within the peritoneum. The size of [...] If you have any questions, please page [phone]. Consult service will continue to follow along Jackelyn Simon MD 06/20/2023 Acute Care Surgery Service p.[phone] Acute Care Surgery Attending Addendum: I have [...] Progress Note Admission Date: 06/16/2023 Primary Team: MORISGY ID: Chapin Jarrod Costa is a 52 [...] intra-abdominal fluid collection. Procedures: 06/16/23: externalization of MAINTENANCE CLERK shunt (NSGY) Subjective Interval Events/Subjective: - NAOE [...] for foreign body removal of the remnant MAINTENANCE CLERK shunt within the peritoneum. The size of [...] If you have any questions, please page [phone]. Consult service will continue to follow along [...] identified at this time. Given concern for MAINTENANCE CLERK drain integrity anticipate pt will continue to ambulate with supervision of staff while remains with current externalized setup, but when returns to baseline, no needs foreseen. Pt in agreement. Will d/c PT consult, please page me should additional needs or concerns arise. [phone] - [phone] IE Low (23mins) Meghan Stokes, PT, MSPT Pager [phone] Inpatient Physical Therapy 06/19/23 5524 Evaluation & Treatment Document Type evaluation Total [...] Ricci MD - 06/19/2023 5:19 AM EDT [facility] Progress Note Date: 06/19/2023, HD: 3 [...] Patient Active Problem List Diagnosis Code S/P MAINTENANCE CLERK shunt Z98.2 Persistent headaches R51.9 Headache R51.9 Cervicalgia M54.2 Seizures R56.9 Hydrocephalus G91.9 Congenital hydrocephalus Q03.9 Shunt malfunction T85.618A Laila Ricci MD Please page #[phone] with questions regarding all established patients, or #[phone] for first time consults on new patients. * Meghan Stokes, PT - 06/18/2023 3:54 PM EDT Physical Therapy 06/18/23 1073 Evaluation & Treatment Document Type contact Total Minutes, Physical Therapy 0 Comment, Session Not Performed PT consult received, hx/current status reviewed. attempted to see ptfor assessment, he is currently off unit for procedure. will plan to f.u as appropriate tomorrow. Meghan Stokes PT, MSPT Pager [phone] Inpatient Physical Therapy * Trevor Sandoval RN - 06/18/2023 3:35 PM EDT [facility] Name: Chapin Costa Date of : 1970 AGE: 52 y.o. Address: [address] [place] [address] (home) Mobile: Telephone Information: Referring Provider: None [...] Planned procedure: aspiration of right upper quadrant MAINTENANCE CLERK shunt fluid collection Labs to be performed [...] Patient Active Problem List Diagnosis Code S/P MAINTENANCE CLERK shunt Z98.2 Persistent headaches R51.9 Headache R51.9 [...] Ricci MD - 06/18/2023 5:31 AM EDT [facility] Progress Note Date: 06/18/2023, HD: 2 [...] TML No pronator drift RUE: 5/5 LUE: 06/27 RLE: 06/27 LLE: 06/27 SILTx4 R cranial incision well healed, no areas of erythema, no drainage Abdominal incision without skin defect, surrounding erythema slightly improved Abdomen nontender Drains: VPS catheter with clear output. Labs/Imaging: Reviewed in Epic. Problem List: Patient Active Problem List Diagnosis Code S/P MAINTENANCE CLERK shunt Z98.2 Persistent headaches R51.9 Headache R51.9 Cervicalgia M54.2 Seizures R56.9 Hydrocephalus G91.9 Congenital hydrocephalus Q03.9 Shunt malfunction T85.618A Laila Ricci MD Please page #[phone] with questions regarding all established patients, or #[phone] for first time consults on new patients. * Richard Valles MD - 06/17/2023 7:18 AM EDT [facility] Progress Note Date: 06/17/2023, HD: 1 [...] Patient Active Problem List Diagnosis Code S/P MAINTENANCE CLERK shunt Z98.2 Persistent headaches R51.9 Headache R51.9 Cervicalgia M54.2 Seizures R56.9 Hydrocephalus G91.9 Congenital hydrocephalus Q03.9 Shunt malfunction T85.618A Richard Valles MD Please page #[phone] with questions regarding all established patients, or #[phone] for first time consults on new patients. documented in this encounter H&P Notes * Collin Machado PA - 06/17/2023 4:54 PM EDT Images from the original note were not included. Interventional Radiology Focused Pre-procedure H&P: PCP: MARVA Gordon Procedure indication: Congenital hydrocephalus, MAINTENANCE CLERK shunt fluid collection IR workflow: Procedure request received through the Interventional Radiology eDH order queue. History of present illness: Per chart review, Chapin Costa is a 52 y.o. male who presents toInterventional Radiology to undergo aspiration of fluid around MAINTENANCE CLERK shunt in the setting of recent revision. [...] with fluid and pain at site of MAINTENANCE CLERK shunt revision presenting to Interventional Radiology for fluid aspiration. Plan Planned procedure: aspiration of right upper quadrant MAINTENANCE CLERK shunt fluid collection Labs to be performed [...] Patient Active Problem List Diagnosis Code S/P MAINTENANCE CLERK shunt Z98.2 Persistent headaches R51.9 Headache R51.9 [...] 4.06) performed by Shan Rivero MD at [facility] OSC PRO EXTRACTION, ERUPTED TOOTH OR EXPOSED ROOT N/A 10/18/2020 EXTRACTION, ERUPTED TOOTH OR EXPOSED ROOT (WRVU 0.62) performed by Shan Rivero MD at [facility] OSC PRO IMPACT TOOTH REM BONY W/COMP N/A 10/18/2020 SURGICAL EXTRACTIONS, REMOVAL OF IMPACTED TOOTH, COMPLETELY BONY WITH UNUSUAL SURGICAL COMPLICATIONS (WRVU 2.91) performed by Shan Rivero MD at [facility] OSC PRO IMPACT TOOTH REMOV COMP BONY N/A 10/18/2020 SURGICAL EXTRACTIONS, REMOVAL OF IMPACTED TOOTH, COMPLETELY BONY (WRVU 1.93) performed by Shan Rivero MD at [facility] OSC PRO REMOVAL ERUPTED TOOTH WITH ELEVATION OF MUCOPERIOSTEAL FLAP Bilateral 10/18/2020 SURGICAL EXTRACTIONS REQUIRING ELEVATION OF MUCOPERIOSTEAL FLAP AND REMOVAL OF BONE OR SECTION OF TOOTH (WRVU 1.09) performed by Shan Rivero MD at [facility] OSC PRO REPLACEMENT/REVISION, CSF SHUNT Right 06/09/2023 REVISION OR REPLACEMENT CSF SHUNT (WRVU 11.43) performed by Rhoda Jimenez MD at [facility] MAIN OR PRO UNLISTED PROCEDURE NERVOUS SYSTEM Right 05/24/2022 EXPLORATION VENTRICULO-PERITONEAL SHUNT (WRVU 25.48) performed by Rhoda Jimenez MD at [facility] MAIN OR SHOULDER SURGERY ULNAR TUNNEL RELEASE [...] Bautista MD - 06/16/2023 12:24 PM EDT [facility] H&P ID: Chapin Costa, 52 y.o. [...] confrontation, FS, TML No pronator drift RUE: 5 LUE: 06/27 RLE: 06/27 LLE: 06/27 SILTx4 [...] abnormality. XRSS 06/16/23 IMPRESSION Right frontal approach MAINTENANCE CLERK shunt catheter with focal discontinuity at the [...] Time Provider Department Center 07/09/2023 9:40 AM [facility] CT [address] [facility] RAD CT [facility] Rad 07/09/2023 10:40 AM Cl Atkins PA [facility] [id number] [facility] Neurosurgery Pager: [phone] Lisa Bautista MD 06/16/2023 12:24 PM Clinical [...] 4.06) performed by Shan Rivero MD at [facility] OSC PRO EXTRACTION, ERUPTED TOOTH OR EXPOSED ROOT N/A 10/18/2020 EXTRACTION, ERUPTED TOOTH OR EXPOSED ROOT (WRVU 0.62) performed by Shan Rivero MD at [facility] OSC PRO IMPACT TOOTH REM BONY W/COMP N/A 10/18/2020 SURGICAL EXTRACTIONS, REMOVAL OF IMPACTED TOOTH, COMPLETELY BONY WITH UNUSUAL SURGICAL COMPLICATIONS (WRVU 2.91) performed by Shan Rivero MD at [facility] OSC PRO IMPACT TOOTH REMOV COMP BONY N/A 10/18/2020 SURGICAL EXTRACTIONS, REMOVAL OF IMPACTED TOOTH, COMPLETELY BONY (WRVU 1.93) performed by Shan Rivero MD at [facility] OSC PRO REMOVAL ERUPTED TOOTH WITH ELEVATION OF MUCOPERIOSTEAL FLAP Bilateral 10/18/2020 SURGICAL EXTRACTIONS REQUIRING ELEVATION OF MUCOPERIOSTEAL FLAP AND REMOVAL OF BONE OR SECTION OF TOOTH (WRVU 1.09) performed by Shan Rivero MD at [facility]SC PRO REPLACEMENT/REVISION, CSF SHUNT Right 06/09/2023 REVISION OR REPLACEMENT CSF SHUNT (WRVU 11.43) performed by Rhoda Jimenez MD at [facility] MAIN OR PRO UNLISTED PROCEDURE NERVOUS SYSTEM Right 05/24/2022 EXPLORATION VENTRICULO-PERITONEAL SHUNT (WRVU 25.48) performed by Rhoda Jimenez MD at [facility] MAIN OR SHOULDER SURGERY ULNAR TUNNEL RELEASE [...] Bautista MD - 06/16/2023 7:01 PM EDT [facility] MAINTENANCE CLERK SHUNT TAP NOTE Date: 06/16/23 Patient: Chapin [...] Costa is a 52 y.o. male with MAINTENANCE CLERK shunt who presents to the Emergency Department [...] Shunt Series Final Result Right frontal approach MAINTENANCE CLERK shunt catheter with focal discontinuity at the [...] who have questions please contact the health customer care representative that requested your imaging first. Electronically signed by: Kraig Rizvi MD, [facility] ([phone]), at 06/16/2023 11:[address] Head wo Contrast (Generic) Final Result Stable examination with no hydrocephalus or other acute abnormality. Thank you for letting us participate in the care of this patient. If you are a health care provider and have any questions regarding this report, please contact the number below. For patients who have questions please contact the health customer care representative that requested your imaging first. Electronically signed by: Eris Hicks MD, [facility] ([phone]), at 06/16/2023 11:[address] Abdomen & [...] abdominal pain and given his leukocytosis to [id number] think it's reasonable to get CT abdomen [...] the patient. Leighton Ordoñez MD Resident 06/16/23 7745 Associated attestation - Dennis Castillo MD - [...] Padron RN - 06/30/2023 3:09 PM EDT RN/CM has received information by [facility] - they called and pt's mom declined services. [facility] will not beout to see patient. Provider team updated. Vishal Padron RN RN/LUDA - Cellphone: [phone] Pager: [phone] Covering Service BOBY * Care Management Discharge - Vishal Padron [...] information for follow-up Home Health & H[facility]ice, [place] [address] [place] [address] Transportation: family or friend will provide Functional [...] letter. Vishal Padron RN RN/CM - Cellphone: [phone] Pager: [phone] Covering Service RN/CM * Care Management - Vishal Padron RN - 06/30/2023 9:54 AM EDT The Biomedical Engineer has been provided a list of Home Health Agencies/DME vendors which serve their preferred geographic area. A letter describing our affiliations was reviewed with them and they were educated about their right to choose where referrals are placed. Patient requests referral to : [facility]. [facility] [place] [facility] [address] PHONE: [phone] FAX: [phone] Expected date of discharge: 06/30/2023 Referral routed to the Stagecraft Professor for matching with agency/vendor and to provide any required information. Vishal Padron RN RN/CM - Cellphone: [phone] Pager: [phone] Covering Service RN/CM * Plan of Care [...] Operative Note Patient Name: Chapin Costa : [id number] MR#: [id number] Case Date: 06/29/2023 Surgeon: Surgeon(s) and Role: [...] Recommendations Transportation: Family Barriers to discharge: Discharge community planning technician/CM following up as patient is anticipated to have OR on 06/30/2023. Following for any rehab re-evaluation closer to discharge and after OR. Plan going forward: Service Care Management will continue to follow and assist with discharge planning and coordination of care as indicated. Anticipated Date of Discharge: 07/01/2023 Vishal Padron RN RN/CM - Cellphone: [phone] Pager: [phone] Covering Service RN/CM * Op Note - Rhoda Jimenez MD - 06/29/2023 2:35 PM EDT [facility] Operative Note Patient Name: Chapin Costa : [id number] MR#: [id number] Case Date: 06/29/2023 Surgeon: Surgeon(s) and Role: * Rhoda Jimenez MD - Primary * Laila Ricci MD - Resident - Assisting Preoperative diagnosis: hydrocephalus Postoperative diagnosis: hydrocephalus Procedure(s) (LRB): REVISION OR REPLACEMENT CSF SHUNT (VU 11.43) (Right) Anesthesia: General Estimated Blood Loss: [...] the chest, this is marked with green levelock. The patient was taken back to the [...] 07/04/2023 * Consult Note - Leighton Patel, BRIDAL STYLIST SALES CONSULTANT - 06/29/2023 4:44 AM EDT Acute Care [...] IR All Drainage Procedures Bentley Arceo MD [facility] INTERVENTIONL RAD PRO ALVEOLOPLASTY W EXTRACTIONS, 4 OR MORE TEETH, PER QUADRANT N/A 10/18/2020 ALVEOPLASTY,IN CONJUNCTION WITH EXTRACTIONS,PER QUADRANT,ENT (WRVU 4.06) performed by Shan Rivero MD at [facility] OSC PRO EXTRACTION, ERUPTED TOOTH OR EXPOSED ROOT N/A 10/18/2020 EXTRACTION, ERUPTED TOOTH OR EXPOSED ROOT (WRVU 0.62) performed by Shan Rivero MD at [facility] OSC PRO IMPACT TOOTH REM BONY W/COMP N/A 10/18/2020 SURGICAL EXTRACTIONS, REMOVAL OF IMPACTED TOOTH, COMPLETELY BONY WITH UNUSUAL SURGICAL COMPLICATIONS (WRVU 2.91) performed by Shan Rivero MD at [facility] OSC PRO IMPACT TOOTH REMOV COMP BONY N/A 10/18/2020 SURGICAL EXTRACTIONS, REMOVAL OF IMPACTED TOOTH, COMPLETELY BONY (WRVU 1.93) performed by Shan Rivero MD at [facility] OSC PRO REMOVAL ERUPTED TOOTH WITH ELEVATION OF MUCOPERIOSTEAL FLAP Bilateral 10/18/2020 SURGICAL EXTRACTIONS REQUIRING ELEVATION OF MUCOPERIOSTEAL FLAP AND REMOVAL OF BONE OR SECTION OF TOOTH (WRVU 1.09) performed by Shan Rivero MD at [facility] OSC PRO REMOVAL, COMPLETE CSF SHUNT, W/O REPLACE Right 06/20/2023 @REMOVAL OF COMPLETE CSF SHUNT, W/O REPLACEMENT (WRVU 7.38) [facility]PLACEMENT/REVISION, CSF SHUNT Right 06/09/2023 REVISION OR REPLACEMENT CSF SHUNT (WRVU 11.43) performed by Rhoda Jimenez MD at [facility] MAIN OR PRO UNLISTED PROCEDURE NERVOUS SYSTEM Right 05/24/2022 EXPLORATION VENTRICULO-PERITONEAL SHUNT (WRVU 25.48) performed by Rhoda Jimenez MD at [facility] MAIN OR SHOULDER SURGERY ULNAR TUNNEL RELEASE [...] EVD Data Reviewed: Labs: Recent Labs 06/29/23 0326 06/28/23 0558 WBC 12.4* 13.6* HGB 17.4* 18.1* [...] 72 hours. No results for input(s): PHART, EZI1UHG, PO2ART, NFC3YVH in the last 72 hours. Studies: IMPRESSION [...] If you have any questions, please page [phone]. Consult service will sign off Leighton Patel [...] Patient Active Problem List Diagnosis Code S/P MAINTENANCE CLERK shunt Z98.2 Persistent headaches R51.9 Headache R51.9 Cervicalgia M54.2 Seizures R56.9 Hydrocephalus G91.9 Congenital hydrocephalus Q03.9 Shunt malfunction T85.618A PSH: Past Surgical History: Procedure Laterality Date CARPAL TUNNEL RELEASE Right CHOLECYSTECTOMY, LAPAROSCOPIC IR ALL DRAINAGE PROCEDURES 06/18/2023 IR All Drainage Procedures Bentley Arceo MD [facility] INTERVENTIONL RAD PRO ALVEOLOPLASTY W EXTRACTIONS, 4 OR MORE TEETH, PER QUADRANT N/A 10/18/2020 ALVEOPLASTY,IN CONJUNCTION WITH EXTRACTIONS,PER QUADRANT,ENT (WRVU 4.06) performed by Shan Rivero MD at [facility] OSC PRO EXTRACTION, ERUPTED TOOTH OR EXPOSED ROOT N/A 10/18/2020 EXTRACTION, ERUPTED TOOTH OR EXPOSED ROOT (WRVU 0.62) performed by Shan Rivero MD at [facility] OSC PRO IMPACT TOOTH REM BONY W/COMP N/A 10/18/2020 SURGICAL EXTRACTIONS, REMOVAL OF IMPACTED TOOTH, COMPLETELY BONY WITH UNUSUAL SURGICAL COMPLICATIONS (WRVU 2.91) performed by Shan Rivero MD at [facility] OSC PRO IMPACT TOOTH REMOV COMP BONY N/A 10/18/2020 SURGICAL EXTRACTIONS, REMOVAL OF IMPACTED TOOTH, COMPLETELY BONY (WRVU 1.93) performed by Shan Rivero MD at [facility] OSC PRO REMOVAL ERUPTED TOOTH WITH ELEVATION OF MUCOPERIOSTEAL FLAP Bilateral 10/18/2020 SURGICAL EXTRACTIONS REQUIRING ELEVATION OF MUCOPERIOSTEAL FLAP AND REMOVAL OF BONE OR SECTION OF TOOTH (WRVU 1.09) performed by Shan Rivero MD at [facility] OSC PRO REMOVAL, COMPLETE CSF SHUNT, W/O REPLACE Right 06/20/2023 @REMOVAL OF COMPLETE CSF SHUNT, W/O REPLACEMENT (WRVU 7.38) [facility] REPL[facility]EMENT/REVISION, CSF SHUNT Right 06/09/2023 REVISION OR REPLACEMENT CSF SHUNT (WRVU 11.43) performed by Rhoda Jimenez MD at [facility] MAIN OR PRO UNLISTED PROCEDURE NERVOUS SYSTEM Right 05/24/2022 EXPLORATION VENTRICULO-PERITONEAL SHUNT (WRVU 25.48) performed by Rhoda Jimenez MD at [facility] MAIN OR SHOULDER SURGERY ULNAR TUNNEL RELEASE [...] 52.0* 51.4* PLATELET 253 269 Recent Labs 06/28/2358 06/27/23 2159 06/26/23 0415 NA 142 140 [...] 72 hours. No results for input(s): PHART, PGV2LTZ, PO2ART, OUY5DCF in the last 72 hours. Studies: IMPRESSION [...] If you have any questions, please page [phone]. Consult service will continue to follow along John Clements MD 06/28/2023 Acute Care Surgery Service p.[phone] Attending Addendum I have seen and examined [...] MEDICAID [place] Prescription Coverage: Yes [facility] [place] [place] - [address] [address] Plan for discharge is: Pending Hospital Course and PT/OT Recommendations Agency Referrals & Follow-up Care: Pending Hospital Course and PT/OT Recommendations Transportation: family or friend will provide Barriers to discharge: Discharge community planning technician/CM following for OR next week and reassessment by rehab services. Plan PO Antibiotics at this time. Legal Guardians: Tracy Fregoso Relationship: Guardianship [phone] Plan going forward: Service Care Management will continue to follow and assist with discharge planning and coordination of care as indicated. Anticipated Date of Discharge: 07/01/2023 Vishal Padron RN RN/CM - Cellphone: [phone] Pager: [phone] Covering Service RN/CM * Plan of Care [...] allergy test dose of amoxicillin. Reviewed with fiscal analyst, re-timed for this evening forclose monitoring. Endorsed [...] Care Management * Plan of Care - Lalti Belle RN - 06/21/2023 5:49 PM EDT [...] Operative Note Patient Name: Chapin Costa : [id number] MR#: [id number] Case Date: 06/20/2023 Surgeon: Surgeon(s) and Role: * Arely Murray MD - Primary * Delgado Denis MD - Resident - Assisting Preoperative diagnosis: MAINTENANCE CLERK shunt revision Postoperative diagnosis: MAINTENANCE CLERK shunt revision Procedure(s) (LRB): LAPAROSCOPY, DIAGNOSTIC, ABDOMEN [...] Collection Info Order Time SPECIMEN TO PATHOLOGY MAINTENANCE CLERK shunt revision explanted MAINTENANCE CLERK shunt catheter excision 06/20/2023 2:24 PM Time [...] Murray MD - 06/20/2023 2:16 PM EDT [facility] Operative Note Patient Name: Chapin Costa : [id number] MR#: [id number] Case Date: 06/20/2023 Surgeon: Surgeon(s) and Role: * Arely Murray MD - Primary * Delgado Denis MD - Resident - Assisting Preoperative diagnosis: MAINTENANCE CLERK shunt revision Postoperative diagnosis: MAINTENANCE CLERK shunt revision Procedure(s) (LRB): @REMOVAL OF COMPLETE [...] Collection Info Order Time SPECIMEN TO PATHOLOGY MAINTENANCE CLERK shunt revision explanted MAINTENANCE CLERK shunt catheter excision 06/20/2023 2:24 PM Time [...] removal of the intra-abdominal portion of the MAINTENANCE CLERK shunt. Procedure Description: The patient was taken [...] pain overnight. PLAN MOVING FORWARD: Laparoscopic surgery [id number] exams Q2 EVD output CARE PLAN GOAL [...] Consult Note Patient Name: Chapin Costa MR#: [id number] : 1970 Admission Date: 06/16/2023 Primary Team: NSGY Consult Requested by: Rhoda Jimenez MD Reason for Consult: intraabdominal fluid collection near MAINTENANCE CLERK shunt tip, ?I&D Time Paged for Consult: [...] Patient Active Problem List Diagnosis Code S/P MAINTENANCE CLERK shunt Z98.2 Persistent headaches R51.9 Headache R51.9 Cervicalgia M54.2 Seizures R56.9 Hydrocephalus G91.9 Congenital hydrocephalus Q03.9 Shunt malfunction T85.618A PSH: Past Surgical History: Procedure Laterality Date CARPAL TUNNEL RELEASE Right CHOLECYSTECTOMY, LAPAROSCOPIC PRO ALVEOLOPLASTY W EXTRACTIONS, 4 OR MORE TEETH, PER QUADRANT N/A 10/18/2020 ALVEOPLASTY,IN CONJUNCTION WITH EXTRACTIONS,PER QUADRANT,ENT (WRVU 4.06) performed by Shan Rivero MD at [facility] OSC PRO EXTRACTION, ERUPTED TOOTH OR EXPOSED ROOT N/A 10/18/2020 EXTRACTION, ERUPTED TOOTH OR EXPOSED ROOT (WRVU 0.62) performed by Shan Rivero MD at [facility] OSC PRO IMPACT TOOTH REM BONY W/COMP N/A 10/18/2020 SURGICAL EXTRACTIONS, REMOVAL OF IMPACTED TOOTH, COMPLETELY BONY WITH UNUSUAL SURGICAL COMPLICATIONS (WRVU 2.91) performed by Shan Rivero MD at [facility] OSC PRO IMPACT TOOTH REMOV COMP BONY N/A 10/18/2020 SURGICAL EXTRACTIONS, REMOVAL OF IMPACTED TOOTH, COMPLETELY BONY (WRVU 1.93) performed by Shan Rivero MD at [facility] OSC PRO REMOVAL ERUPTED TOOTH WITH ELEVATION OF MUCOPERIOSTEAL FLAP Bilateral 10/18/2020 SURGICAL EXTRACTIONS REQUIRING ELEVATION OF MUCOPERIOSTEAL FLAP AND REMOVAL OF BONE OR SECTION OF TOOTH (WRVU 1.09) performed by Shan Rivero MD at [facility] OSC PRO REPLACEMENT/REVISION, CSF SHUNT Right 06/09/2023 REVISION OR REPLACEMENT CSF SHUNT (WRVU 11.43) performed by Rhoda Jimenez MD at [facility] MAIN OR PRO UNLISTED PROCEDURE NERVOUS SYSTEM Right 05/24/2022 EXPLORATION VENTRICULO-PERITONEAL SHUNT (WRVU 25.48) performed by Rhoda Jimenez MD at [facility] MAIN OR SHOULDER SURGERY ULNAR TUNNEL RELEASE [...] 72 hours. No results for input(s): PHART, JEH8ZTK, PO2ART, MUL8OJW in the last 72 hours. Studies: CT [...] However with the presence of the remnant MAINTENANCE CLERK shunt catheter, there is risk of biofilm production and persistent infection without foreign body removal. The patient would need an internalized shunt in order to be able to leave the hospital. From my discussions with neurosurgery, it seems the best option at this time is creating a new MAINTENANCE CLERK shunt on the left side. However, ongoing intra-abdominal infection would be a contraindication for creating a new MAINTENANCE CLERK shunt. There is no urgency to addressing [...] If you have any questions, please page [phone]. Consult service will continue to follow along Vivian Lawson MD 06/18/2023 Acute Care Surgery Service p.[phone] Associated attestation [...] the abdominal wall and peritoneal portions of MAINTENANCE CLERK shunt to removethe foreign body in attempt [...] Yes ; Prescription Coverage: Yes Preferred Pharmacy: [facility], [place] - [address] [facility] [address] [facility] [address] Advance Care Planning: Attempt Cardiopulmonary Resuscitation - Inpatient <no information> -Advanced Directive: Other (Ildefonso,Tracy Relationship: Guardianship [phone] ) Current Functional Ability: Assistive Person Functional Status Prior to Admission: Independent Home Environment: Others in the home: parent(s). Current Living Arrangements: home/apartment/condo. Accessibility Concerns:Lives in a 3rd floor apartment with an elevator, Patient can also navigate stairs, he wears a CPAP at home, He lives with his mother... Current DME: respiratory supplies (CPAP at night) [address] [facility] [address] Social & Family Supports: All names listed below confirmed with patient as current and correct Extended Emergency Contact Information Primary Emergency Contact: Tracy Fregoso Address: [address] [place] [address] Mobile Relation: Guardianship Secondary Emergency Contact: ILDEFONSORICH Address: [address] [place] [address] Mobile Relation: Step parent Current Care Provided [...] via car when medically ready. Registered Nurse Major Donor Coordinator / Deputy Jailer will continue to follow patient???s progress and remain available if situation changes for coordination of care, psychosocial support and/or discharge planning. Office of Care Management Vishal Padron RN RN/CM - Cellphone: [phone] Pager: [phone] Covering Service RN/CM * Plan of Care [...] included. DEPARTMENT OF INFECTIOUS DISEASE & [facility] INFECTIOUS DISEASE CONSULT NOTE Reason for ID Consult: MAINTENANCE CLERK shunt w/abdominal fluid collection History of Present Illness: 52 y.o. 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 Aside from this, the remaining catheter are intact CT Head wo Contrast IMPRESSION Stable examination with no hydrocephalus or other acute abnormality. Diagnosis: Concerns for Intraabdominal infection in the setting of recent MAINTENANCE CLERK shunt revision Summary 52 y.o. 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 At this time will recommend [...] Ar Yuan MD Infectious Disease Fellow Pager [phone] 06/17/[address] Kelsey (attending [...] the abdomen and does not involve the CUSTOMER SUPPORT ASSOCIATE based on CSF fluid analysis. We recommend draining the abdominal fluid collection for diagnostic (please send for culture) and therapeutic purposes (drainage will likely expedite cure, which will allow for internalizatoin of the MAINTENANCE CLERK shunt). In the meantime, we recommend narrowing [...] to Home Health Outpatient Referral Routine S/P MAINTENANCE CLERK shunt Ordered: 06/30/2023 documented as of this encounter Procedures Procedure Name Priority Date/Time Associated Diagnosis Comments HEMOGRAM Routine 06/30/2023 6:02 AM EDT DIFFERENTIAL, AUTOMATED Routine 06/30/19 6:02 AM EDT CBC (WITH DIFF) Routine 06/30/2023 6:02 AM EDT BASIC METABOLIC PANEL Routine 06/30/2023 6:02 AM EDT XR SHUNT SERIES Routine 06/29/2023 6:21 PM EDT XR CHEST ONE VIEW Routine 06/29/2023 5:1 8 PM EDT REVISION OR REPLACEMENT CSF SHUNT Routine 06/29/2023 [...] EDT Removal, Complete Csf Shunt, W/O Replace ([id number]) 06/20/2023 1:51 PM EDT MAINTENANCE CLERK shunt revision HEMOGRAM Routine 06/20/2023 5:16 AM [...] DESC 1 STAT 06/16/2023 5:40 PM EDT CUSTOMER SUPPORT ASSOCIATE SHUNT CULTURE Routine 06/16/2023 5:4 0 PM [...] COUNT STAT 06/16/2023 1:4 9 PM EDT CUSTOMER SUPPORT ASSOCIATE SHUNT CULTURE Routine 06/16/2023 1:4 9 PM [...] 6:02 AM EDT) Neutrophil % 74.9 % [facility] Neutrophil Absolute 12.03(H) 1.70 - 6.10 x10(3)/mc L [facility] Lymph % 17.2 % [facility] Lymphocytes Abs 2.8 0.9 - 3.2 x10(3)/mc L [facility] Monocyte % 5.7 % [facility] Monocyte Abs 0.9 0.3 - 0.9 x10(3)/mc L [facility] Eos % 1.4 % [facility] Eosinophils Abs 0.2 0.0 - 0.4 x10(3)/mc L [facility] Basophil % 0.4 % [facility] Baso Absolute 0.1 0.0 - [...] Absolute 0.06(H) 0.00 - 0.04 x10(3)/mc L [facility] Blood 06/30/2023 6:02 AM EDT 06/30/2023 6:18 AM EDT Narrative Resulting Agency Comment Spec In Lab Laila Ricci MD HEMATOLOGY ORDERABLE S [facility] [place] [address] * (ABNORMAL) Hemogram (06/30/2023 6:02 AM EDT) [facility] White Blood Cell 16.0(H) 4.0 - 9.5 x10(3)/[facility] Red Blood Cell 5.79(H) 4.58 - 5.54 x10(6)/[facility] Hemoglobin 17.1(H) 13.7 - 16.5 g/dL [facility] Hematocrit 49.7(H) 40.5 - 48.5 % [facility] Mean Cell Volume 85.8 82.9 - 93.[address] [facility] Mean Cell Hemoglobin 29.5 27.5 - 32.[address] [facility] Mean Cell Hemoglobin Concentration 34.4 32.0 - 35.7 g/dL [facility] Platelet 257 145 - 357 x10(3)/[facility] RDW Standard Deviation 41.3 36.0 - 45.0 [facility] RDW coefficient of variation 13.3 11.4 - 13.8 % [facility] Mean Platelet Volume 9.1 7.6 - 12.9 [facility] NRBC% auto 0.0 % [facility] NRBC Absolute 0.000 0.000 - 0.000 x10(3)/[facility] Blood 06/30/2023 6:02 AM EDT 06/30/2023 6:18 AM EDT Narrative Resulting Agency Comment Spec In Lab Laila Ricci MD HEMATOLOGY ORDERABLE S [facility] [place] [address] * (ABNORMAL) Basic Metabolic Panel (non-fasting) (06/30/2023 6:02 AM EDT) [facility] Glucose 116 65 - 199 mg/dL [facility] Comment:Diabetes: >=200 mg/d L plus symptoms Blood Urea Nitrogen 15 10 - 20 mg/dL [facility] Creatinine 1.36 0.80 - 1.50 mg/dL [facility] Sodium 138 135 - 145 mmol/L [facility] Potassium 4.1 3.5 - 5.0 mmol/L [facility] Comment: Please note: ??Patients with WBC >100,000 may have falsely elevated Potassium levels. ??For accurate Potassium quantification in these patients send serum separator tube (gold top) for subsequent determinations. ??Contact the Clinical Chemistry Laboratory if there are any questions. Chloride 107 98 - 107 mmol/L [facility] Carbon Dioxide 21(L) 22 - 31 mmol/L [facility] Anion Gap 10 5 - 15 mmol/L [facility] Calcium 9.4 8.5 - 10.5 mg/dL [facility] Est Glomerular Filtration Rate 63 >=60 mL/min/1. 73 m?? [facility] [...] In Lab Rhoda Jimenez MD CHEMISTRY ORDERABLES [facility] [place] [address] * XR Shunt Series (06/29/2023 6:21 PM EDT) WORKSTATION ID [id number] RAD Anatomical Region Laterality Modality N/A Digital Radiogra phy Impressions 06/30/2023 9:07 AM EDT Replaced, intact right ventriculopleural drain catheter. Thank you for letting us participate in the care of this patient. ??If you are a health care provider and have any questions regarding this report, please contact the number below. ??For patients who have questions please contact the health customer care representative that requested your imaging first. ? Electronically signed by: Emerita Bernstein MD, [facility] ([phone]), at 06/30/2023 9:07 AM Narrative 06/30/2023 9:07 [...] patients who have questions please contactthe health customer care representative that requested your imaging first. Electronically signed by: Emerita Bernstein MD, [facility]([phone]), at 06/30/2023 9:07 AM Rhoda Jimenez MD IMG DX ORDERABLES * XR Chest One View (06/29/2023 5:18 PM EDT) WORKSTATION ID [id number] RAD Anatomical Region Laterality Modality Chest N/A Digital Radiogra phy Impressions 06/30/2023 8:41 AM EDT Ventriculopleural shunt catheter in place. No pneumothorax. Thank you for letting us participate in the care of this patient. ??If you are a health care provider and have any questions regarding this report, please contact the number below. ??For patients who have questions please contact the health customer care representative that requested your imaging first. ? Electronically signed by: Chapin Lee MD, [facility] ??([phone]), at 06/30/2023 8:41 AM Narrative 06/30/2023 8:41 [...] patients who have questions please contactthe health customer care representative that requested your imaging first. Electronically signed by: Chapin Lee MD, [facility]([phone]), at 06/30/2023 8:41 AM Rhoda Jimenez MD IMG DX ORDERABLES * (ABNORMAL) Differential, Automated (06/29/2023 3:26 AM EDT) Neutrophil % 62.0 % [facility] Neutrophil Absolute 7.70(H) 1.70 - 6.10 x10(3)/mc L [facility] Lymph % 29.5 % [facility] Lymphocytes Abs 3.7(H) 0.9 - 3.2 x10(3)/mc L [facility] Monocyte % 5.6 % [facility] Monocyte Abs 0.7 0.3 - 0.9 x10(3)/mc L [facility] Eos % 1.9 % [facility] Eosinophils Abs 0.2 0.0 - 0.4 x10(3)/[facility] Basophil % 0.7 % [facility] Baso Absolute 0.1 0.0 - 0.1 x10(3)/[facility] Immature Gran % 0.30 % [facility] Comment: Immature granulocytes(IG's)percentage and absolute count will include metamyelocytes, myelocytes, and promyelocytes. Blood smears from CBCs yielding IG's will be scanned manually for concordance. If this scan disagrees with the automated IG or if promyelocytes are noted, a manual differential will be performed. Immature Gran Absolute 0.04 0.00 - 0.04 x10(3)/[facility] Blood 06/29/2023 3:26 AM EDT 06/29/2023 3:34 AM EDT Narrative Resulting Agency Comment Spec In Lab Claire DURHAM HEMATOLOGY ORDERABLE S Performing Organization Address City/State/[facility] Co de Phone Number [facility] [place] [address] * (ABNORMAL) Hemogram (06/29/2023 3:26 AM EDT) White Blood Cell 12.4(H) 4.0 - 9.5 x10(3)/[facility] Red Blood Cell 5.93(H) 4.58 - 5.54 x10(6)/[facility] Hemoglobin 17.4(H) 13.7 - 16.5 g/dL [facility] Hematocrit 51.4(H) 40.5 - 48.5 % [facility] Mean Cell Volume 86.7 82.9 - 93.[address] [facility] Mean Cell Hemoglobin 29.3 27.5 - 32.[address] [facility] Mean Cell Hemoglobin Concentration 33.9 32.0 - 35.7 g/dL [facility] Platelet 284 145 - 357 x10(3)/[facility] RDW Standard Deviation 42.2 36.0 - 45.0 [facility] RDW coefficient of variation 13.3 11.4 - 13.8 % [facility] Mean Platelet Volume 8.7 7.6 - 12.9 [facility] NRBC% auto 0.0 % [facility] NRBC Absolute 0.000 0.000 - 0.000 x10(3)/mc L [facility] Blood 06/29/2023 3:26 AM EDT 06/29/2023 3:34 AM EDT Narrative Resulting Agency Comment Spec In Lab Claire DURHAM HEMATOLOGY ORDERABLE S [facility] [place] [address] * (ABNORMAL) Basic Metabolic Panel (non-fasting) (06/29/2023 3:26 AM EDT) Glucose 109 65 - 199 mg/dL [facility] Comment:Diabetes: >=200 mg/d L plus symptoms Blood Urea Nitrogen 19 10 - 20 mg/dL [facility] Creatinine 1.36 0.80 - 1.50 mg/dL [facility] Sodium 140 135 - 145 mmol/L [facility] Potassium 3.9 3.5 - 5.0 mmol/L [facility] Comment: Please note: ??Patients with WBC >100,000 may have falsely elevated Potassium levels. ??For accurate Potassium quantification in these patients send serum separator tube (gold top) for subsequent determinations. ??Contact the Clinical Chemistry Laboratory if there are any questions. Chloride 106 98 - 107 mmol/L [facility] Carbon Dioxide 21(L) 22 - 31 mmol/L [facility] Anion Gap 13 5 - 15 mmol/L [facility] Calcium 9.6 8.5 - 10.5 mg/dL [facility] Est Glomerular Filtration Rate 63 >=60 mL/min/1. 73 m?? [facility] In Lab Rhoda Jimenez MD CHEMISTRY ORDERABLES [facility] [place] [address] * Scan Doc: Implantable Devices (06/29/2023 12:00 AM EDT) Narrative 06/29/2023 12:00 AM EDT Ordered by an unspecified provider. Scanning Provider MEDIA MGR SCAN EXT O RDR/RSLT * CT Abdomen & Pelvis w Contrast (06/28/2023 9:54 AM EDT) [employer] WORKSTATION ID [id number] RAD Anatomical Region Laterality Modality Abdomen, Pelvis [...] who have questions please contact the health customer care representative that requested your imaging first. ? Electronically signed by: Kandi Duarte MD, [facility] ([phone]), at 06/28/2023 10:35 AM Narrative 06/28/2023 10:35 [...] patients who have questions please contactthe health customer care representative that requested your imaging first. Electronically signed by: Kandi Duarte MD, [facility]([phone]), at 06/28/2023 10:35 AM Rhoda Jimenez MD IMG CT ORDERABLES * (ABNORMAL) Differential, Automated (06/28/2023 5:58 AM EDT) Neutrophil % 63.8 % [facility] Neutrophil Absolute 8.71(H) 1.70 - 6.10 x10(3)/mc L [facility] Lymph % 28.0 % [facility] Lymphocytes Abs 3.8(H) 0.9 - 3.2 x10(3)/mc L [facility] Monocyte % 5.5 % [facility] Monocyte Abs 0.8 0.3 - 0.9 x10(3)/[facility] Eos % 1.5 % [facility] Eosinophils Abs 0.2 0.0 - 0.4 x10(3)/[facility] Basophil % 0.9 % [facility] Baso Absolute 0.1 0.0 - 0.1 x10(3)/[facility] Immature Gran % 0.30 % [facility] Comment: Immature granulocytes(IG's)percentage and absolute count will include metamyelocytes, myelocytes, and promyelocytes. Blood smears from CBCs yielding IG's will be scanned manually for concordance. If this scan disagrees with the automated IG or if promyelocytes are noted, a manual differential will be performed. Immature Gran Absolute 0.04 0.00 - 0.04 x10(3)/[facility] Blood 06/28/2023 5:58 AM EDT 06/28/2023 6:08 AM EDT Narrative Resulting Agency Comment Spec In Lab Claire DURHAM HEMATOLOGY ORDERAB LES [facility] [place] [address] * (ABNORMAL) Hemogram (06/28/2023 5:58 AM EDT) White Blood Cell 13.6(H) 4.0 - 9.5 x10(3)/[facility] Red Blood Cell 5.96(H) 4.58 - 5.54 x10(6)/[facility] Hemoglobin 18.1(H) 13.7 - 16.5 g/dL [facility] Hematocrit 52.0(H) 40.5 - 48.5 % [facility] Mean Cell Volume 87.2 82.9 - 93.[address] [facility] Mean Cell Hemoglobin 30.4 27.5 - 32.[address] [facility] Mean Cell Hemoglobin Concentration 34.8 32.0 - 35.7 g/dL [facility] Platelet 253 145 - 357 x10(3)/mc L [facility] RDW Standard Deviation 41.9 36.0 - 45.[address] [facility] RDW coefficient of variation 13.2 11.4 - 13.8 % [facility] Mean Platelet Volume 8.7 7.6 - 12.[address] [facility] NRBC% auto 0.0 % [facility] NRBC Absolute 0.000 0.000 - 0.000 x10(3)/mc L [facility] Blood 06/28/2023 5:58 AM EDT 06/28/2023 6:08 AM EDT Narrative Resulting Agency Comment Spec In Lab Claire DURHAM HEMATOLOGY ORDERAB LES Performing Organization Address City/State/[facility] Co de Phone Number [facility] [place] [address] * (ABNORMAL) Basic Metabolic Panel (non-fasting) (06/28/2023 5:58 AM EDT) Glucose 103 65 - 199 mg/dL [facility] Comment:Diabetes: >=200 mg/d L plus symptoms Blood Urea Nitrogen 19 10 - 20 mg/dL [facility] Creatinine 1.33 0.80 - 1.50 mg/dL [facility] Sodium 142 135 - 145 mmol/L [facility] Potassium 3.9 3.5 - 5.0 mmol/[facility] [...] mmol/L [facility] Anion Gap 16(H) 5 - 15 mmol/L [facility] Calcium 9.8 8.5 - 10.5 mg/dL [facility] Est Glomerular Filtration Rate 65 >=60 mL/min/1. 73 m?? [facility] In Lab Rhoda Jimenez MD CHEMISTRY ORDERABLES [facility] [place] [address] * Basic Metabolic Panel (non-fasting) (06/27/2023 9:59 PM EDT) Glucose 104 65 - 199 mg/dL [facility] Comment:Diabetes: >=200 mg/d L plus symptoms Blood Urea Nitrogen 17 10 - 20 mg/dL [facility] Creatinine 1.34 0.80 - 1.50 mg/dL [facility] Sodium 140 135 - 145 mmol/L [facility] Potassium 3.9 3.5 - 5.0 mmol/L [facility] Comment: Please note: ??Patients with WBC >100,000 may have falsely elevated Potassium levels. ??For accurate Potassium quantification in these patients send serum separator tube (gold top) for subsequent determinations. ??Contact the Clinical Chemistry Laboratory if there are any questions. Chloride 103 98 - 107 mmol/L [facility] Carbon Dioxide 22 22 - 31 mmol/L [facility] Anion Gap 15 5 - 15 mmol/L [facility] Calcium 9.9 8.5 - 10.5 mg/dL [facility] Est Glomerular Filtration Rate 65 >=60 mL/min/1. 73 m?? [facility] [...] Jimenez MD CHEMISTRY ORDERABLES Performing Organization Address City/[facility]/ZIP Co de Phone Number [facility] [place] [address] * Magnesium (06/27/2023 9:59 PM EDT) Magnesium 0.93 0.69 - 1.07 mmol/L [facility] Blood 06/27/2023 9:59 PM EDT 06/27/2023 10:07 PM EDT Narrative Resulting Agency Comment Spec In Lab Rhoda Jimenez MD CHEMISTRY ORDERABLES [facility] [place] [address] * Phosphorus (06/27/2023 9:59 PM EDT) Phosphorus 3.9 2.5 - 4.5 mg/dL [facility] Blood 06/27/2023 9:59 PM EDT 06/27/2023 10:07 PM EDT Narrative Resulting Agency Comment Spec In Lab Rhoda Jimenez MD CHEMISTRY ORDERABLES [facility] [place] [address] * XR Abdomen Flat & Upright (06/27/2023 8:13 PM EDT) WORKSTATION ID [id number] RAD Anatomical Region Laterality Modality Abdomen N/A [...] who have questions please contact the health customer care representative that requested your imaging first. ? Narrative [...] patients who have questions please contactthe health customer care representative that requested your imaging first. Electronically signed by: Kandi Duarte MD, [facility]([phone]), at 06/27/2023 8:45 PM Rhoda Jimenez MD IMG DX ORDERABLES * XR Abdomen 1 view (Generic) (06/27/2023 7:16 PM EDT) WORKSTATION ID [id number] RAD Anatomical Region Laterality Modality Abdomen N/A [...] who have questions please contact the health customer care representative that requested your imaging first. ? Electronically signed by: Kandi Duarte MD, [facility] ([phone]), at 06/27/2023 7:36 PM Narrative 06/27/2023 7:36 PM EDT EXAMINATION: XR ABDOMEN 1 VIEW (GENERIC) CLINICAL HISTORY: Please obtain upright. Assess for intra-abdominal pathology with recent intra-abdominal infection and new emesis/bloating. TECHNIQUE: AP abdominal radiograph (2 images) COMPARISON: CT abdomen pelvis 06/16/2023 FINDINGS: The lower abdomen and pelvis are excluded from the [id number]. Imaged bowel loops are nondilated. No free [...] abdomen and pelvis are excluded from the [id number]. Imagedbowel loops are nondilated. No free air. [...] patients who have questions please contactthe health customer care representative that requested your imaging first. Electronically signed by: Kandi Duarte MD, [facility]([phone]), at 06/27/2023 7:36 PM Rhoda Jimenez MD IMG DX ORDERABLES * (ABNORMAL) Differential, Automated (06/26/2023 4:15 AM EDT) Neutrophil % 70.8 % [facility] Neutrophil Absolute 7.88(H) 1.70 - 6.10 x10(3)/[facility] Lymph % 21.7 % [facility] Lymphocytes Abs 2.4 0.9 - 3.2 x10(3)/[facility] Monocyte % 4.9 % [facility] Monocyte Abs 0.5 0.3 - 0.9 x10(3)/[facility] Eos % 1.5 % [facility] Eosinophils Abs 0.2 0.0 - 0.4 x10(3)/[facility] Basophil % 0.8 % [facility] Baso Absolute 0.1 0.0 - 0.1 x10(3)/[facility] Immature Gran % 0.30 % [facility] Comment: Immature granulocytes(IG's)percentage and absolute count will include metamyelocytes, myelocytes, and promyelocytes. Blood smears from CBCs yielding IG's will be scanned manually for concordance. If this scan disagrees with the automated IG or if promyelocytes are noted, a manual differential will be performed. Immature Gran Absolute 0.03 0.00 - 0.04 x10(3)/ L [facility] Blood 06/26/2023 4:15 AM EDT 06/26/2023 4:24 AM EDT Narrative Resulting Agency Comment Spec In Lab Claire DURHAM HEMATOLOGY ORDERAB LES [facility] [place] [address] * (ABNORMAL) Hemogram (06/26/2023 4:15 AM EDT) White Blood Cell 11.1(H) 4.0 - 9.5 x10(3)/ L [facility] Red Blood Cell 5.97(H) 4.58 - 5.54 x10(6)/ L [facility] Hemoglobin 17.8(H) 13.7 - 16.5 g/dL [facility] Hematocrit 51.4(H) 40.5 - 48.5 % [facility] Mean Cell Volume 86.1 82.9 - 93.[address] [facility] Mean Cell Hemoglobin 29.8 27.5 - 32.[address] [facility] Mean Cell Hemoglobin Concentration 34.6 32.0 - 35.7 g/dL [facility] Platelet 269 145 - 357 x10(3)/[facility] RDW Standard Deviation 41.4 36.0 - 45.0 [facility] RDW coefficient of variation 13.3 11.4 - 13.8 % [facility] Mean Platelet Volume 8.6 7.6 - 12.[address] [facility] NRBC% auto 0.0 % [facility] NRBC Absolute 0.000 0.000 - 0.000 x10(3)/[facility] Blood 06/26/2023 4:15 AM EDT 06/26/2023 4:24 AM EDT Narrative Resulting Agency Comment Spec In Lab Claire DURHAM HEMATOLOGY ORDERAB LES [facility] [place] [address] * (ABNORMAL) Basic Metabolic Panel (non-fasting) (06/26/2023 4:15 AM EDT) Glucose 114 65 - 199 mg/dL [facility] Comment:Diabetes: >=200 mg/d L plus symptoms Blood Urea Nitrogen 15 10 - 20 mg/dL [facility] Creatinine 1.17 0.80 - 1.50 mg/dL [facility] Sodium 139 135 - 145 mmol/L [facility] Potassium 4.1 3.5 - 5.0 mmol/L [facility] Comment: Please note: ??Patients with WBC >100,000 may have falsely elevated Potassium levels. ??For accurate Potassium quantification in these patients send serum separator tube (gold top) for subsequent determinations. ??Contact the Clinical Chemistry Laboratory if there are any questions. Chloride 105 98 - 107 mmol/L [facility] Carbon Dioxide 20(L) 22 - 31 mmol/L [facility] Anion Gap 14 5 - 15 mmol/L [facility] Calcium 9.6 8.5 - 10.5 mg/dL [facility] Est Glomerular Filtration Rate 76 >=60 mL/min/1. 73 m?? [facility] [...] In Lab Rhoda Jimenez MD CHEMISTRY ORDERABLES [facility] [place] [address] * (ABNORMAL) Differential, Automated (06/23/2023 5:30 AM EDT) Neutrophil % 63.0 % [facility] Neutrophil Absolute 6.55(H) 1.70 - 6.10 x10(3)/[facility] Lymph % 29.2 % [facility] Lymphocytes Abs 3.0 0.9 - 3.2 x10(3)/[facility] Monocyte % 4.3 % [facility] Monocyte Abs 0.4 0.3 - 0.9 x10(3)/[facility] Eos % 2.4 % [facility] Eosinophils Abs 0.2 0.0 - 0.4 x10(3)/[facility] Basophil % 0.9 % [facility] Baso Absolute 0.1 0.0 - 0.1 x10(3)/[facility] Immature Gran % 0.20 % [facility] Comment: Immature granulocytes(IG's)percentage and absolute count will include metamyelocytes, myelocytes, and promyelocytes. Blood smears from CBCs yielding IG's will be scanned manually for concordance. If this scan disagrees with the automated IG or if promyelocytes are noted, a manual differential will be performed. Immature Gran Absolute 0.02 0.00 - 0.04 x10(3)/[facility] Blood 06/23/2023 5:30 AM EDT 06/23/2023 5:36 AM EDT Narrative Resulting Agency Comment Spec In Lab Macie DURHAM HEMATOLOGY TRIP [facility] [facility] [place] [address] * (ABNORMAL) Hemogram (06/23/2023 5:30 AM EDT) White Blood Cell 10.4(H) 4.0 - 9.5 x10(3)/[facility] Red Blood Cell 5.81(H) 4.58 - 5.54 x10(6)/mc L [facility] Hemoglobin 17.5(H) 13.7 - 16.5 g/dL [facility] Hematocrit 50.2(H) 40.5 - 48.5 % [facility] Mean Cell Volume 86.4 82.9 - 93.[address] [facility] Mean Cell Hemoglobin 30.1 27.5 - 32.[address] [facility] Mean Cell Hemoglobin Concentration 34.9 32.0 - 35.7 g/dL [facility] Platelet 231 145 - 357 x10(3)/mc L [facility] RDW Standard Deviation 41.4 36.0 - 45.0 [facility] RDW coefficient of variation 13.2 11.4 - 13.8 % [facility] Mean Platelet Volume 8.5 7.6 - 12.9 [facility] NRBC% auto 0.0 % [facility] NRBC Absolute 0.000 0.000 - 0.000 x10(3)/mc L [facility] Blood 06/23/2023 5:30 AM EDT 06/23/2023 5:36 AM EDT Narrative Resulting Agency Comment Spec In Lab Macie DURHAM HEMATOLOGY TRIP [facility] [facility] [place] [address] * Phosphorus (06/23/2023 5:28 AM EDT) Phosphorus 2.9 2.5 - 4.5 mg/dL [facility] Blood 06/23/2023 5:28 AM EDT 06/23/2023 5:36 AM EDT Narrative Resulting Agency Comment Spec In Lab Dennis Castillo MD CHEMISTRY ORDERABLES [facility] [place] [address] * Magnesium (06/23/2023 5:28 AM EDT) Pathologist [facility] Magnesium 0.94 0.69 - 1.07 mmol/L [facility] Blood 06/23/2023 5:28 AM EDT 06/23/2023 5:36 AM EDT Narrative Resulting Agency Comment Spec In Lab Dennis Castillo MD CHEMISTRY ORDERABLES [facility] [place] [address] * (ABNORMAL) Basic Metabolic Panel (non-fasting) (06/23/2023 5:28 AM EDT) [facility] Glucose 111 65 - 199 mg/dL [facility] Comment:Diabetes: >=200 mg/d L plus symptoms Blood Urea Nitrogen 18 10 - 20 mg/dL [facility] Creatinine 1.22 0.80 - 1.50 mg/dL [facility] Sodium 140 135 - 145 mmol/L [facility] Potassium 4.1 3.5 - 5.0 mmol/L [facility] Comment: Please note: ??Patients with WBC >100,000 may have falsely elevated Potassium levels. ??For accurate Potassium quantification in these patients send serum separator tube (gold top) for subsequent determinations. ??Contact the Clinical Chemistry Laboratory if there are any questions. Chloride 106 98 - 107 mmol/L [facility] Carbon Dioxide 20(L) 22 - 31 mmol/L [facility] Anion Gap 14 5 - 15 mmol/L [facility] Calcium 9.3 8.5 - 10.5 mg/dL [facility] Est Glomerular Filtration Rate 72 >=60 mL/min/1. 73 m?? [facility] In Lab Dennis Castillo MD CHEMISTRY ORDERABLES [facility] [place] [address] * (ABNORMAL) Differential, Automated (06/22/2023 4:20 AM EDT) Neutrophil % 61.6 % [facility] Neutrophil Absolute 6.81(H) 1.70 - 6.10 x10(3)/mc L [facility] Lymph % 29.7 % [facility] Lymphocytes Abs 3.3(H) 0.9 - 3.2 x10(3)/mc L [facility] Monocyte % 5.2 % [facility] Monocyte Abs 0.6 0.3 - 0.9 x10(3)/mc L [facility] Eos % 2.5 % [facility] Eosinophils Abs 0.3 0.0 - 0.4 x10(3)/mc L [facility] Basophil % 0.8 % [facility] Baso Absolute 0.1 0.0 - [...] Immature Gran Absolute 0.02 0.00 - 0.04 x10(3)/ L [facility] Blood 06/22/2023 4:20 AM EDT 06/22/2023 4:28 AM EDT Narrative Resulting Agency Comment Spec In Lab Macie DURHAM HEMATOLOGY TRIP [facility] [place] [address] * (ABNORMAL) Hemogram (06/22/2023 4:20 AM EDT) White Blood Cell 11.1(H) 4.0 - 9.5 x10(3)/[facility] Red Blood Cell 5.76(H) 4.58 - 5.54 x10(6)/[facility] Hemoglobin 17.3(H) 13.7 - 16.5 g/dL [facility] Hematocrit 49.8(H) 40.5 - 48.5 % [facility] Mean Cell Volume 86.5 82.9 - 93.[address] [facility] Mean Cell Hemoglobin 30.0 27.5 - 32.[address] [facility] Mean Cell Hemoglobin Concentration 34.7 32.0 - 35.7 g/dL [facility] Platelet 233 145 - 357 x10(3)/[facility] RDW Standard Deviation 42.1 36.0 - 45.0 [facility] RDW coefficient of variation 13.2 11.4 - 13.8 % [facility] Mean Platelet Volume 8.8 7.6 - 12.[address] [facility] NRBC% auto 0.0 % [facility] NRBC Absolute 0.000 0.000 - 0.000 x10(3)/[facility] Blood 06/22/2023 4:20 AM EDT 06/22/2023 4:28 AM EDT Narrative Resulting Agency Comment Spec In Lab Macie DURHAM HEMATOLOGY TRIP [facility] [place] [address] * (ABNORMAL) Basic Metabolic Panel (non-fasting) (06/22/2023 4:10 AM EDT) Glucose 109 65 - 199 mg/dL [facility] Comment:Diabetes: >=200 mg/d L plus symptoms Blood Urea Nitrogen 19 10 - 20 mg/dL [facility] Creatinine 1.21 0.80 - 1.50 mg/dL [facility] Sodium 135 135 - 145 mmol/L [facility] Potassium 4.1 3.5 - 5.0 mmol/L [facility] Comment: Please note: ??Patients with WBC >100,000 may have falsely elevated Potassium levels. ??For accurate Potassium quantification in these patients send serum separator tube (gold top) for subsequent determinations. ??Contact the Clinical Chemistry Laboratory if there are any questions. Chloride 103 98 - 107 mmol/L [facility] Carbon Dioxide 20(L) 22 - 31 mmol/L [facility] Anion Gap 12 5 - 15 mmol/L [facility] Calcium 9.2 8.5 - 10.5 mg/dL [facility] Est Glomerular Filtration Rate 73 >=60 mL/min/1. 73 m?? [facility] Castillo MD CHEMISTRY ORDERABLES Performing Organization Address [facility] Co de Phone Number [facility] [place] [address] * Phosphorus (06/22/2023 3:10 AM EDT) Phosphorus 3.1 2.5 - 4.5 mg/dL [facility] Blood 06/22/2023 3:10 AM EDT 06/22/2023 3:18 AM EDT Narrative Resulting Agency Comment Spec In Lab Dennis Castillo MD CHEMISTRY ORDERABLES Performing Organization Address [facility] Phone Number [facility] [place] [address] * Magnesium (06/22/2023 3:10 AM EDT) Magnesium 0.91 0.69 - 1.07 mmol/L [facility] Blood 06/22/2023 3:10 AM EDT 06/22/2023 3:18 AM EDT Narrative Resulting Agency Comment Spec In Lab Dennis Castillo MD CHEMISTRY ORDERABLES Performing Organization Address [facility] de Phone Number [facility] [place] [address] * (ABNORMAL) Basic Metabolic Panel (non-fasting) (06/22/2023 3:10 AM EDT) Glucose 106 65 - 199 mg/dL [facility] Comment:Diabetes: >=200 mg/d L plus symptoms Blood Urea Nitrogen 18 10 - 20 mg/dL [facility] Creatinine 1.21 0.80 - 1.50 mg/dL [facility] Sodium 136 135 - 145 mmol/[facility] [...] mmol/L [facility] Carbon Dioxide 20(L) 22 - 31 mmol/L [facility] Anion Gap 12 5 - 15 mmol/L [facility] Calcium 9.2 8.5 - 10.5 mg/dL [facility] Est Glomerular Filtration Rate 73 >=60 mL/min/1. 73 m?? [facility] In Lab Dennis Castillo MD CHEMISTRY ORDERABLES [facility] [place] [address] * (ABNORMAL) Differential, Automated (06/21/2023 2:22 AM EDT) Neutrophil % 64.1 % [facility] Neutrophil Absolute 6.59(H) 1.70 - 6.10 x10(3)/mc L [facility] Lymph % 28.2 % [facility] Lymphocytes Abs 2.9 0.9 - 3.2 x10(3)/[facility] Monocyte % 5.2 % [facility] Monocyte Abs 0.5 0.3 - 0.9 x10(3)/[facility] Eos % 1.6 % [facility] Eosinophils Abs 0.2 0.0 - 0.4 x10(3)/[facility] Basophil % 0.6 % [facility] Baso Absolute 0.1 0.0 - 0.1 x10(3)/[facility] Immature Gran % 0.30 % [facility] Comment: Immature granulocytes(IG's)percentage and absolute count will include metamyelocytes, myelocytes, and promyelocytes. Blood smears from CBCs yielding IG's will be scanned manually for concordance. If this scan disagrees with the automated IG or if promyelocytes are noted, a manual differential will be performed. Immature Gran Absolute 0.03 0.00 - 0.04 x10(3)/[facility] Blood 06/21/2023 2:22 AM EDT 06/21/2023 2:33 AM EDT Narrative Resulting Agency Comment Spec In Lab Macie DURHAM HEMATOLOGY TRIP MCDUFFIE [facility] Organization Address City/State/[facility] Co de Phone Number [facility] [place] [address] * (ABNORMAL) Hemogram (06/21/2023 2:22 AM EDT) White Blood Cell 10.3(H) 4.0 - 9.5 x10(3)/[facility] Red Blood Cell 5.92(H) 4.58 - 5.54 x10(6)/[facility] LABORATORY Hemoglobin 17.8(H) 13.7 - 16.5 g/dL [facility] Hematocrit 51.9(H) 40.5 - 48.5 % [facility] Mean Cell Volume 87.7 82.9 - 93.[address] [facility] Mean Cell Hemoglobin 30.1 27.5 - 32.[address] [facility] Mean Cell Hemoglobin Concentration 34.3 32.0 - 35.7 g/dL [facility] Platelet 244 145 - 357 x10(3)/mc L [facility] RDW Standard Deviation 42.8 36.0 - 45.0 [facility]ORY RDW coefficient of variation 13.2 11.4 - 13.8 % [facility] Mean Platelet Volume 8.7 7.6 - 12.[address] [facility] NRBC% auto 0.0 % [facility] NRBC Absolute 0.000 0.000 - 0.000 x10(3)/mc L [facility] LABORATORY Blood 06/21/2023 2:22 AM EDT 06/21/2023 2:33 AM EDT Narrative Resulting Agency Comment Spec In Lab Macie DURHAM HEMATOLOGY ORDE RABLES [facility] [place] [address] * Phosphorus (06/21/2023 2:22 AM EDT) Phosphorus 3.6 2.5 - 4.5 mg/dL [facility] Blood 06/21/2023 2:22 AM EDT 06/21/2023 2:33 AM EDT Narrative Resulting Agency Comment Spec In Lab Dennis Castillo MD CHEMISTRY ORDERABLES [facility] [place] [address] * Magnesium (06/21/2023 2:22 AM EDT) Magnesium 0.99 0.69 - 1.07 mmol/L [facility] Blood 06/21/2023 2:22 AM EDT 06/21/2023 2:33 AM EDT Narrative Resulting Agency Comment Spec In Lab Dennis Castillo MD CHEMISTRY ORDERABLES [facility] [place] [address] * (ABNORMAL) Basic Metabolic Panel (non-fasting) (06/21/2023 2:22 AM EDT) Glucose 101 65 - 199 mg/dL [facility] Comment:Diabetes: >=200 mg/d L plus symptoms Blood Urea Nitrogen 17 10 - 20 mg/dL [facility] Creatinine 1.16 0.80 - 1.50 mg/dL [facility] [...] mmol/L [facility] Carbon Dioxide 20(L) 22 - 31 mmol/L [facility] Anion Gap 13 5 - 15 mmol/L [facility] Calcium 9.2 8.5 - 10.5 mg/dL [facility] Est Glomerular Filtration Rate 77 >=60 mL/min/1. 73 m?? [facility] In Lab Dennis Castillo MD CHEMISTRY ORDERABLES [facility] [place] [id number] * Surgical Pathology Report (06/20/2023 2:24 PM EDT) Final Diagnosis [id number] ? Location: [facility]; [id number]; A The signing pathologist has (i) examined the relevant preparation(s) for the specimen(s) and (ii) rendered or confirmed the diagnosis(es). . ?Surgical Pathology DIAGNOSIS A - Explanted MAINTENANCE CLERK shunt catheter and attached soft tissue, excision: - Catheter identified (gross examination) - Associated dense fibrous connective tissue with calcifications Electronically signed by: ?Tatiana LEE, PhD, Russell Gilmore Verified: ??07/01/2023 13:52 ??Dermatopatholog ist, Bone & Soft Tissue Pathologist Performed at: ??-[facility] Dept. of Pathology, [place] [address] Website Developer: Jayjay Covarrubias MD, FCAP, ??CLIA Certificate: [id number] SPECIMEN(S) SUBMITTED A - explanted MAINTENANCE CLERK shunt catheter, excision (1) CLINICAL INFORMATION MAINTENANCE CLERK shunt revision SPECIMEN PROCESSING A - Labeled/Fixative: Explanted MAINTENANCE CLERK shunt catheter, fresh. Quantity/Size: Four, ranging from [...] labeled A1. ??shb 07/01/2023 1:[address] [facility] FOREIGN BODY / Unknown 06/20/2023 2:24 PM EDT 06/20/2023 2:24 PM EDT Arely Murray MD PATHOLOGY/CYTOLOGY O RDERABLES Performing Organization Address City/[facility]/[place] [address] * Specimen to Pathology (06/20/2023 2:24 PM EDT) AP Specimen 06/20/2023 2:24 PM EDT 06/20/2023 2:[address] [facility] - 06/20/2023 2:24 PM EDT Specimen requisition ordered. ??Separate Pathology report to follow Rhoda Jimenez MD PATHOLOGY/CYTOLOGY O RDERABLES Performing Organization Address City/[facility]/[place] [address] * (ABNORMAL) Differential, Automated (06/20/2023 5:16 AM EDT) Neutrophil % 60.4 % [facility] Neutrophil Absolute 6.58(H) 1.70 - 6.10 x10(3)/mc L [facility] Lymph % 31.7 % [facility] Lymphocytes Abs 3.4(H) 0.9 - 3.2 x10(3)/mc L [facility] Monocyte % 5.2 % [facility] Monocyte Abs 0.6 0.3 - 0.9 x10(3)/mc L [facility] Eos % 1.7 % [facility] Eosinophils Abs 0.2 0.0 - 0.4 x10(3)/mc L [facility] Basophil % 0.6 % [facility] Baso Absolute 0.1 0.0 - 0.1 x10(3)/ L [facility] Immature Gran [...] Absolute 0.04 0.00 - 0.04 x10(3)/ L [facility] Blood 06/20/2023 5:16 AM EDT 06/20/2023 5:23 AM EDT Narrative Resulting Agency Comment Spec In Lab Macie DURHAM HEMATOLOGY TRIP MCDUFFIE [facility] [place] [address] * (ABNORMAL) Hemogram (06/20/2023 5:16 AM EDT) White Blood Cell 10.9(H) 4.0 - 9.5 x10(3)/[facility] LABORATORY Red Blood Cell 5.93(H) 4.58 - 5.54 x10(6)/ L [facility] Hemoglobin 17.6(H) 13.7 - 16.5 g/dL [facility] Hematocrit 51.5(H) 40.5 - 48.5 % [facility] Mean Cell Volume 86.8 82.9 - 93.[address] [facility] Mean Cell Hemoglobin 29.7 27.5 - 32.[address] [facility] Mean Cell Hemoglobin Concentration 34.2 32.0 - 35.7 g/dL [facility] Platelet 253 145 - 357 x10(3)/[facility] LABORATORY RDW Standard Deviation 42.1 36.0 - 45.[address] [facility] RDW coefficient of variation 13.2 11.4 - 13.8 % [facility] Mean Platelet Volume 8.7 7.6 - 12.[address] [facility] NRBC% auto 0.0 % [facility] NRBC Absolute 0.000 0.000 - 0.000 x10(3)/mc L [facility] Blood 06/20/2023 5:16 AM EDT 06/20/2023 5:23 AM EDT Narrative Resulting Agency Comment Spec In Lab Macie DURHAM HEMATOLOGY ORDE RABLES Performing Organization Address City/[facility]/ZIP Co de Phone Number [facility] [place] [address] * Phosphorus (06/20/2023 5:15 AM EDT) Phosphorus 3.2 2.5 - 4.5 mg/dL [facility] Blood 06/20/2023 5:15 AM EDT 06/20/2023 5:23 AM EDT Narrative Resulting Agency Comment Spec In Lab Dennis Castillo MD CHEMISTRY ORDERABLES Performing Organization Address City/[facility]/ZIP Co de Phone Number [facility] [place] [address] * Magnesium (06/20/2023 5:15 AM EDT) Magnesium 0.99 0.69 - 1.07 mmol/L [facility] Blood 06/20/2023 5:15 AM EDT 06/20/2023 5:23 AM EDT Narrative Resulting Agency Comment Spec In Lab Dennis Castillo MD CHEMISTRY ORDERABLES Performing Organization Address City/[facility]/ZIP Co de Phone Number [facility] [place] [address] * (ABNORMAL) Basic Metabolic Panel (non-fasting) (06/20/2023 5:15 AM EDT) Glucose 109 65 - 199 mg/dL [facility] Comment:Diabetes: >=200 mg/d L plus symptoms Blood Urea Nitrogen 17 10 - 20 mg/dL [facility] Creatinine 1.11 0.80 - 1.50 mg/dL [facility] Sodium 138 135 - 145 mmol/L [facility] Potassium 3.9 3.5 - 5.0 mmol/L [facility] Comment: Please note: ??Patients with WBC >100,000 may have falsely elevated Potassium levels. ??For accurate Potassium quantification in these patients send serum separator tube (gold top) for subsequent determinations. ??Contact the Clinical Chemistry Laboratory if there are any questions. Chloride 104 98 - 107 mmol/L [facility] Carbon Dioxide 20(L) 22 - 31 mmol/L [facility] Anion Gap 14 5 - 15 mmol/L [facility] Calcium 9.6 8.5 - 10.5 mg/dL [facility] Est Glomerular Filtration Rate 81 >=60 mL/min/1. 73 m?? [facility] [...] In Lab Dennis Castillo MD CHEMISTRY ORDERABLES [facility] [place] [address] * Vancomycin Level, Random (06/20/2023 5:15 AM EDT) Pathologist [facility] Vancomycin, Random 11.0 mg/L [facility] Comment: This level is for determination of the patient's vancomycin jxcz-vfnlj-ylf-curve (AUC) value. Contact the inpatient pharmacy for interpretation. Blood 06/20/2023 5:15 AM EDT 06/20/2023 5:23 AM EDT Rhoda Jimenez MD CHEMISTRY ORDERABLES Performing Organization Address City/[facility]/ZIP Co de Phone Number [facility] [place] [place] [address] * EKG 12 Lead (06/19/2023 2:04 PM EDT) [facility] Ventricular rate 77 BPM MUSE SYSTEM Atrial Rate 77 BPM MUSE SYSTEM P-R Interval 124 ms MUSE SYSTEM QRS Duration 74 ms MUSE SYSTEM Q-T Interval 240 ms MUSE SYSTEM QTC Calculated (Bezet) 271 ms MUSE SYSTEM Calculated P [place] 30 degrees MUSE SYSTEM Calculated R [place] 8 degrees MUSE SYSTEM Calculated T [place] -47 degrees MUSE SYSTEM INTERPRETATION Normal sinus rhythm Nonspecific ST and T wave abnormality Abnormal ECG When compared with ECG of 23-MAR-2019 16:17, Nonspecific T wave abnormality, worse in Inferior leads Nonspecific T wave abnormality now evident in Anterolateral leads QT has shortened Confirmed by MD Juan, [facility] ([id number]) on 06/22/2023 6:25:56 AM MUSE SYSTEM 06/19/2023 2:04 PM EDT 06/22/2023 6:25 AM EDT Andrew Laws APRN ECG ORDERABLES Performing Organization Address City/[facility]/ZIP Co de Phone Number MUSE SYSTEM * (ABNORMAL) Differential, Automated (06/19/2023 3:30 AM EDT) Pathologist [facility] Neutrophil % 60.2 % [facility] Neutrophil Absolute 6.17(H) 1.70 - 6.10 x10(3)/mc L [facility] Lymph % 32.0 % [facility] Lymphocytes Abs 3.3(H) 0.9 - 3.2 x10(3)/[facility] Monocyte % 5.2 % [facility] Monocyte Abs 0.5 0.3 - 0.9 x10(3)/[facility] Eos % 1.7 % [facility] Eosinophils Abs 0.2 0.0 - 0.4 x10(3)/[facility] Basophil % 0.6 % [facility] Baso Absolute 0.1 0.0 - 0.1 x10(3)/[facility] Immature Gran % 0.30 % [facility] Comment: Immature granulocytes(IG's)percentage and absolute count will include metamyelocytes, myelocytes, and promyelocytes. Blood smears from CBCs yielding IG's will be scanned manually for concordance. If this scan disagrees with the automated IG or if promyelocytes are noted, a manual differential will be performed. Immature Gran Absolute 0.03 0.00 - 0.04 x10(3)/[facility] LABORATORY Blood 06/19/2023 3:30 AM EDT 06/19/2023 3:39 AM EDT Narrative Resulting Agency Comment Spec In Lab Macie DURHAM HEMATOLOGY TRIP MCDUFFIE [facility] Organization Address City/State/[facility] Co de Phone Number [facility] [place] [address] * (ABNORMAL) Hemogram (06/19/2023 3:30 AM EDT) White Blood Cell 10.2(H) 4.0 - 9.5 x10(3)/[facility] LABORATORY Red Blood Cell 5.43 4.58 - 5.54 x10(6)/[facility] Hemoglobin 16.5 13.7 - 16.5 g/dL [facility] Hematocrit 47.6 40.5 - 48.5 % [facility] Mean Cell Volume 87.7 82.9 - 93.1 fL [facility] Mean Cell Hemoglobin 30.4 27.5 - 32.[address] [facility] Mean Cell Hemoglobin Concentration 34.7 32.0 - 35.7 g/dL [facility] Platelet 214 145 - 357 x10(3)/mc L [facility] RDW Standard Deviation 43.1 36.0 - 45.0 [facility] LABORATORY RDW coefficient of variation 13.4 11.4 - 13.8 % [facility] Mean Platelet Volume 8.9 7.6 - 12.9 [facility] NRBC% auto 0.0 % [facility] NRBC Absolute 0.000 0.000 - 0.000 x10(3)/mc L [facility] Blood 06/19/2023 3:30 AM EDT 06/19/2023 3:39 AM EDT Narrative Resulting Agency Comment Spec In Lab Macie DURHAM HEMATOLOGY ORDE RABLES [facility] [place] [address] * Phosphorus (06/19/2023 3:20 AM EDT) Phosphorus 2.8 2.5 - 4.5 mg/dL [facility] Blood 06/19/2023 3:20 AM EDT 06/19/2023 3:39 AM EDT Narrative Resulting Agency Comment Spec In Lab Dennis Castillo MD CHEMISTRY ORDERABLES [facility] [place] [address] * Magnesium (06/19/2023 3:20 AM EDT) Magnesium 0.95 0.69 - 1.07 mmol/L [facility] Blood 06/19/2023 3:20 AM EDT 06/19/2023 3:39 AM EDT Narrative Resulting Agency Comment Spec In Lab Dennis Castillo MD CHEMISTRY ORDERABLES [facility] [place] [address] * Basic Metabolic Panel (non-fasting) (06/19/2023 3:20 AM EDT) Glucose 113 65 - 199 mg/dL [facility] Comment:Diabetes: >=200 mg/d L plus symptoms Blood Urea Nitrogen 13 10 - 20 mg/dL [facility] Creatinine 1.22 0.80 - 1.50 mg/dL [facility] Sodium 139 135 - 145 mmol/L [facility] Potassium 4.1 3.5 - 5.0 mmol/L [facility] Comment: Please note: ??Patients with WBC >100,000 may have falsely elevated Potassium levels. ??For accurate Potassium quantification in these patients send serum separator tube (gold top) for subsequent determinations. ??Contact the Clinical Chemistry Laboratory if there are any questions. Chloride 106 98 - 107 mmol/L [facility] Carbon Dioxide 22 22 - 31 mmol/L [facility] Anion Gap 11 5 - 15 mmol/L [facility] Calcium 9.0 8.5 - 10.5 mg/dL [facility] Est Glomerular Filtration Rate 72 >=60 mL/min/1. 73 m?? [facility] In Lab Dennis Castillo MD CHEMISTRY ORDERABLES [facility] [place] [address] * IR All Drainage Procedures (06/18/2023 3:44 [...] EDT) Calcofluor Stain Calcofluor White Preparation: Negative [facility] Abdominal Fluid 06/18/2023 2 :54 PM EDT 06/18/2023 4:18 PM EDT Narrative Resulting Agency Comment Spec In Lab Claire DURHAM MICROBIOLOGY - GEN ERAL ORDERABLES Performing Organization Address City/[facility]/ZIP Co de Phone Number [facility] [place] [address] * Fungus culture (06/18/2023 2:54 PM EDT) Fungus Culture No Fungus isolated [facility] Abdominal Fluid 06/18/2023 2 :54 PM EDT 06/18/2023 4:18 PM EDT Narrative Resulting Agency Comment Spec In Lab Claire DURHAM MICROBIOLOGY - GEN ERAL ORDERABLES Performing Organization Address City/[facility]/ZIP Co de Phone Number [facility] [place] [address] * Anaerobic Culture (06/18/2023 2:54 PM EDT) Anaerobic Culture No anaerobic organisms isolated [facility] Abdominal Fluid 06/18/2023 2 :54 PM EDT 06/18/2023 4:17 PM EDT Narrative Resulting Agency Comment Spec In Lab Claire DURHAM MICROBIOLOGY - GEN ERAL ORDERABLES Performing Organization Address City/[facility]/ZIP Co de Phone Number [facility] [place] [address] * (ABNORMAL) Body Fluid Culture, Aerobic (06/18/2023 2:54 PM EDT) Body Fluid Culture Rare Enterococcus faecalis(A) [facility] Gram Stain Rare Neutrophils seen No microorganisms seen. (A) [facility] Organism Enterococcus faecalis(A) [facility] Abdominal Fluid 06/18/2023 2 :54 [...] Claire DURHAM MICROBIOLOGY - GEN ERAL ORDERABLES [facility] [place] [address] * (ABNORMAL) Differential, Automated (06/18/2023 2:10 AM EDT) Neutrophil % 65.6 % [facility] Neutrophil Absolute 7.27(H) 1.70 - 6.10 x10(3)/mc L [facility] Lymph % 26.2 % [facility] Lymphocytes Abs 2.9 0.9 - 3.2 x10(3)/mc L [facility] Monocyte % 5.5 % [facility] Monocyte Abs 0.6 0.3 - 0.9 x10(3)/mc L [facility] Eos % 1.8 % [facility] Eosinophils Abs 0.2 0.0 - 0.4 x10(3)/mc L [facility] Basophil % 0.6 % [facility] Baso Absolute 0.1 0.0 - [...] Immature Gran Absolute 0.03 0.00 - 0.04 x10(3)/ L [facility] Blood 06/18/2023 2:10 AM EDT 06/18/2023 2:19 AM EDT Narrative Resulting Agency Comment Spec In Lab Macie DURHAM HEMATOLOGY TRIP MCDUFFIE [facility] [place] [address] * (ABNORMAL) Hemogram (06/18/2023 2:10 AM EDT) White Blood Cell 11.1(H) 4.0 - 9.5 x10(3)/[facility]ORATORY Red Blood Cell 5.33 4.58 - 5.54 x10(6)/[facility] Hemoglobin 15.7 13.7 - 16.5 g/dL [facility] Hematocrit 46.3 40.5 - 48.5 % [facility] Mean Cell Volume 86.9 82.9 - 93.[address] [facility] Mean Cell Hemoglobin 29.5 27.5 - 32.[address] [facility] Mean Cell Hemoglobin Concentration 33.9 32.0 - 35.7 g/dL [facility] Platelet 201 145 - 357 x10(3)/[facility] RDW Standard Deviation 43.4 36.0 - 45.0 [facility] RDW coefficient of variation 13.5 11.4 - 13.8 % [facility] Mean Platelet Volume 9.1 7.6 - 12.9 [facility] NRBC% auto 0.0 % [facility] NRBC Absolute 0.000 0.000 - 0.000 x10(3)/[facility] Blood 06/18/2023 2:10 AM EDT 06/18/2023 2:19 AM EDT Narrative Resulting Agency Comment Spec In Lab Macie DURHAM HEMATOLOGY ORDE RABLES Performing Organization Address City/[facility]/ZIP Co de Phone Number [facility] [place] [address] * (ABNORMAL) Phosphorus (06/18/2023 2:10 AM EDT) Phosphorus 2.2(L) 2.5 - 4.5 mg/dL [facility] Blood 06/18/2023 2:10 AM EDT 06/18/2023 2:19 AM EDT Narrative Resulting Agency Comment Spec In Lab Dennis Castillo MD CHEMISTRY ORDERABLES Performing Organization Address [facility] Co de Phone Number [facility] [place] [address] * Magnesium (06/18/2023 2:10 AM EDT) Pathologist [facility] Magnesium 0.91 0.69 - 1.07 mmol/L [facility] Blood 06/18/2023 2:10 AM EDT 06/18/2023 2:19 AM EDT Narrative Resulting Agency Comment Spec In Lab Dennis Castillo MD CHEMISTRY ORDERABLES Performing Organization Address [facility]/ZIP Co de Phone Number [facility] [place] [address] * Basic Metabolic Panel (non-fasting) (06/18/2023 2:10 AM EDT) Glucose 123 65 - 199 mg/dL [facility] Comment:Diabetes: >=200 mg/d L plus symptoms Blood Urea Nitrogen 14 10 - 20 mg/dL [facility] Creatinine 1.12 0.80 - 1.50 mg/dL [facility] Sodium 138 135 - 145 mmol/L [facility] Potassium 4.2 3.5 - 5.0 mmol/L [facility] Comment: Please note: ??Patients with WBC >100,000 may have falsely elevated Potassium levels. ??For accurate Potassium quantification in these patients send serum separator tube (gold top) for subsequent determinations. ??Contact the Clinical Chemistry Laboratory if there are any questions. Chloride 106 98 - 107 mmol/L [facility] Carbon Dioxide 22 22 - 31 mmol/L [facility] Anion Gap 10 5 - 15 mmol/L [facility] Calcium 8.9 8.5 - 10.5 mg/dL [facility] Est Glomerular Filtration Rate 80 >=60 mL/min/1. 73 m?? [facility] In Lab Dennis Castillo MD CHEMISTRY ORDERABLES [facility] [place] [address] * Vancomycin, trough (06/18/2023 2:10 AM EDT) Vancomycin, Trough 12.6 mg/L [facility] Comment: Therapeutic range for complicated [...] In Lab Rhoda Jimenez MD CHEMISTRY ORDERABLES [facility] [place] [address] * (ABNORMAL) Differential, Automated (06/17/2023 3:50 AM EDT) Neutrophil % 67.5 % [facility] Neutrophil Absolute 8.27(H) 1.70 - 6.10 x10(3)/mc L [facility] Lymph % 24.4 % [facility] Lymphocytes Abs 3.0 0.9 - 3.2 x10(3)/ L [facility] Monocyte % 6.7 % [facility] Monocyte Abs 0.8 0.3 - 0.9 x10(3)/ L [facility] Eos % 0.8 % [facility] Eosinophils Abs 0.1 0.0 - 0.4 x10(3)/[facility] Basophil % 0.4 % [facility] Baso Absolute 0.0 0.0 - [...] Immature Gran Absolute 0.03 0.00 - 0.04 x10(3)/ L [facility] Blood 06/17/2023 3:50 AM EDT 06/17/2023 4:28 AM EDT Narrative Resulting Agency Comment Spec In Lab Macie DURHAM HEMATOLOGY TRIP MCDUFFIE [facility] [place] [address] * (ABNORMAL) Hemogram (06/17/2023 3:50 AM EDT) White Blood Cell 12.3(H) 4.0 - 9.5 x10(3)/ L [facility] Red Blood Cell 5.54 4.58 - 5.54 x10(6)/ L [facility] Hemoglobin 16.6(H) 13.7 - 16.5 g/dL [facility] Hematocrit 47.6 40.5 - 48.5 % [facility] Mean Cell Volume 85.9 82.9 - 93.[address] [facility] Mean Cell Hemoglobin 30.0 27.5 - 32.[address] [facility] Mean Cell Hemoglobin Concentration 34.9 32.0 - 35.7 g/dL [facility] Platelet 209 145 - 357 x10(3)/ L [facility] RDW Standard Deviation 43.5 36.0 - 45.0 [facility] RDW coefficient of variation 13.9(H) 11.4 - 13.8 % [facility] Mean Platelet Volume 9.1 7.6 - 12.[address] [facility] NRBC% auto 0.0 % [facility] NRBC Absolute 0.000 0.000 - 0.000 x10(3)/ L [facility] Blood 06/17/2023 3:50 AM EDT 06/17/2023 4:28 AM EDT Narrative Resulting Agency Comment Spec In Lab Macie DURHAM HEMATOLOGY TRIP MCDUFFIE [facility] [place] [address] * Phosphorus (06/17/2023 3:50 AM EDT) Phosphorus 2.6 2.5 - 4.5 mg/dL [facility] Blood 06/17/2023 3:50 AM EDT 06/17/2023 4:28 AM EDT Narrative Resulting Agency Comment Spec In Lab Dennis Castillo MD CHEMISTRY ORDERABLES Performing Organization Address [facility] Co de Phone Number [facility] [place] [address] * Magnesium (06/17/2023 3:50 AM EDT) [facility] Magnesium 0.88 0.69 - 1.07 mmol/L [facility] Blood 06/17/2023 3:50 AM EDT 06/17/2023 4:28 AM EDT Narrative Resulting Agency Comment Spec In Lab Dennis Castillo MD CHEMISTRY ORDERABLES Performing Organization Address [facility] Co de Phone Number [facility] [place] [address] * (ABNORMAL) Basic Metabolic Panel (non-fasting) (06/17/2023 3:50 AM EDT) [facility] Glucose 104 65 - 199 mg/dL [facility] Comment:Diabetes: >=200 mg/d L plus symptoms Blood Urea Nitrogen 15 10 - 20 mg/dL [facility] Creatinine 1.21 0.80 - 1.50 mg/dL [facility] Sodium 137 135 - 145 mmol/L [facility] Potassium 3.9 3.5 - 5.0 mmol/L [facility] Comment: Please note: ??Patients with WBC >100,000 may have falsely elevated Potassium levels. ??For accurate Potassium quantification in these patients send serum separator tube (gold top) for subsequent determinations. ??Contact the Clinical Chemistry Laboratory if there are any questions. Chloride 103 98 - 107 mmol/L [facility] Carbon Dioxide 21(L) 22 - 31 mmol/L [facility] Anion Gap 13 5 - 15 mmol/L [facility] Calcium 9.0 8.5 - 10.5 mg/dL [facility] Est Glomerular Filtration Rate 73 >=60 mL/min/1. 73 m[facility] Castillo MD CHEMISTRY ORDERABLES Performing Organization Address City/[facility]/ZIP Co de Phone Number [facility] [place] [address] * CUSTOMER SUPPORT ASSOCIATE Shunt Culture (06/16/2023 5:40 PM EDT) Pathologist [facility] Central Nervous System Shunt Culture No growth at [address] [facility] Gram Stain Cytocentrifuge Gram Stain performed No Neutrophils seen. No microorganisms seen. [facility] Cerebrospinal Shunt Fluid 06/16/2023 5:40 PM EDT 06/16/2023 6:11 PM EDT Narrative Resulting Agency Comment Spec In Lab Lisa Bautista MD MICROBIOLOGY - GENE RAL ORDERABLES [facility] [place] [address] * CSF Cell Count (06/16/2023 5:40 PM EDT) Tube # counted [address] [facility] AUTO NUC CSF CT 0 0 - 5 /mcl [facility] Comment: If Nucleated CSF CT [...] clinical condition. RBC CSF CT 2 /mcl [facility] Cerebrospinal Fluid 06/16/19 5:40 PM EDT 06/16/2023 6:01 PM EDT Narrative Resulting Agency Comment Spec In Lab Lisa Bautista MD BODY FLUIDS AND STO OLS ORDERABLES Performing Organization Address [facility]/ZIP Co de Phone Number [facility] [place] [address] * CSF DESC 1 (06/16/2023 5:40 PM EDT) Tube Num CSF #[address] [facility] Color, CSF Colorless Colorless [facility] Appearance, CSF Clear Clear [facility] Total Vol, CSF 1.[address] [facility] Cerebrospinal Fluid 06/16/19 5:40 PM EDT 06/16/2023 6:01 PM EDT Narrative Resulting Agency Comment Spec In Lab Lisa Bautista MD BODY FLUIDS AND STO OLS ORDERABLES Performing Organization Address City/[facility]/ZIP Co de Phone Number [facility] [place] [address] * Glucose Level CSF (06/16/2023 5:36 PM EDT) Glucose, CSF 76 mg/dL [facility] Comment:CSF at equilibrium e quals approximately 60-80% of plasma glucose. Cerebrospinal Fluid 06/16/19 5:36 PM EDT 06/16/2023 6:01 PM EDT Narrative Resulting Agency Comment Spec In Lab Rhoda Jimenez MD BODY FLUIDS AND STOO LS ORDERABLES Performing Organization Address City/[facility]/ZIP Co de Phone Number [facility] [place] [address] * (ABNORMAL) Protein Level CSF (06/16/2023 5:36 PM EDT) Protein, CSF 7(L) 15 - 45 mg/dL [facility] Xanthochromia Neg [facility] Cerebrospinal Fluid 06/16/19 5:36 PM EDT 06/16/2023 6:01 PM EDT Narrative Resulting Agency Comment Spec In Lab Rhoda Jimenez MD BODY FLUIDS AND STOO LS ORDERABLES Performing Organization Address [facility] Co de Phone Number [facility] [place] [address] * CT Abdomen & Pelvis w Contrast (06/16/2023 2:04 PM EDT) WORKSTATION ID [id number] [facility] RAD Anatomical Region Laterality Modality Abdomen, Pelvis [...] who have questions please contact the health customer care representative that requested your imaging first. ? Electronically signed by: Adrianne Lao MD, [facility] ([phone]), at 06/16/2023 2:49 PM Narrative 06/16/2023 2:49 [...] patients who have questions please contactthe health customer care representative that requested your imaging first. Dennis Castillo MD IMG CT ORDERABLES * CSF Cell Count (06/16/2023 2:00 PM EDT) Tube # counted [address] [facility] AUTO NUC CSF CT 2 0 - 5 /mcl [facility] Comment: If Nucleated CSF CT [...] clinical condition. RBC CSF CT 0 /mcl [facility] Cerebrospinal Fluid 06/16/19 2:00 PM EDT 06/16/2023 3:03 PM EDT Narrative Resulting Agency Comment Spec In Lab Lisa Bautista MD BODY FLUIDS AND STO OLS ORDERABLES Performing Organization Address City/[facility]/ZIP Co de Phone Number [facility] [place] [address] * CSF DESC 1 (06/16/2023 2:00 PM EDT) Tube Num CSF #[address] [facility] Color, CSF Colorless Colorless [facility] Appearance, CSF Clear Clear [facility] Total Vol, CSF 2.[address] [facility] Cerebrospinal Fluid 06/16/19 2:00 PM EDT 06/16/2023 3:03 PM EDT Narrative Resulting Agency Comment Spec In Lab Lisa Bautista MD BODY FLUIDS AND STO OLS ORDERABLES Performing Organization Address [facility]/ZIP Co de Phone Number [facility] [place] [address] * CUSTOMER SUPPORT ASSOCIATE Shunt Culture (06/16/2023 1:49 PM EDT) Central Nervous System Shunt Culture No growth at [address] [facility] Gram Stain Cytocentrifuge Gram Stain performed No Neutrophils seen. No microorganisms seen. [facility] Cerebrospinal Shunt Fluid 06/16/2023 1:49 PM EDT 06/16/2023 3:10 PM EDT Narrative Resulting Agency Comment Spec In Lab Lisa Bautista MD MICROBIOLOGY - GENE RAL ORDERABLES Performing Organization Address City/[facility]/ZIP Co de Phone Number [facility] [place] [address] * Glucose Level CSF (06/16/2023 1:49 PM EDT) Glucose, CSF 79 mg/dL [facility] Comment:CSF at equilibrium e quals approximately 60-80% of plasma glucose. Cerebrospinal Fluid 06/16/19 1:49 PM EDT 06/16/2023 3:03 PM EDT Narrative Resulting Agency Comment Spec In Lab Dennis Castillo MD BODY FLUIDS AND STOO LS ORDERABLES Performing Organization Address [facility]/ZIP Co de Phone Number [facility] [place] [address] * (ABNORMAL) Protein Level CSF (06/16/2023 1:49 PM EDT) Protein, CSF 7(L) 15 - 45 mg/dL [facility] Xanthochromia Neg [facility] Cerebrospinal Fluid 06/16/19 1:49 PM EDT 06/16/2023 3:03 PM EDT Narrative Resulting Agency Comment Spec In Lab Dennis Castillo MD BODY FLUIDS AND STOO LS ORDERABLES Performing Organization Address [facility]/ZIP Co de Phone Number [facility] [place] [address] * ABORH Recheck Status (06/16/2023 1:15 PM EDT) [facility] Type Recheck Completed [facility] Blood 06/16/2023 1:15 PM EDT 06/16/2023 1:27 PM EDT Narrative Resulting Agency Comment Spec In Lab Lisa Bautista MD BLOOD BANK LAB TRIP MCDUFFIE Performing Organization Address City/[facility]/ZIP Co de Phone Number [facility] [place] [address] * Type and screen ([facility]/DULCE MARIA) (06/16/2023 1:15 PM EDT) ABORH Type A POSITIVE [facility] Patient BB History Found [facility] Expires at [id number] on: 06-19-2023 [facility] Ab Screen Interp Negative [facility] Blood 06/16/2023 1:15 PM EDT 06/16/2023 1:[address] [facility] - 06/16/2023 1:15 PM EDT This Type and Screen result is only valid at the [facility] Resulting Agency Comment Spec In Lab Dennis Castillo MD BLOOD BANK LAB ORDER BELKIS Performing Organization Address City/[facility]/ZIP Co de Phone Number [facility] [place] [address] * APTT (06/16/2023 1:15 PM EDT) Partial Thromboplastin Time 32 25 - [address] [facility] MD HEMATOLOGY ORDERABLE S Performing Organization Address City/[facility]/ZIP Co de Phone Number [facility] [place] [address] * (ABNORMAL) Prothrombin Time (06/16/2023 1:15 PM EDT) Prothrombin Time 13.4(H) 9.4 - 12.[address] [facility] International Normalization Ratio 1.2 [facility] Comment: An INR [...] MD HEMATOLOGY ORDERABLE S Performing Organization Address City/[facility]/ZIP Co de Phone Number [facility] [place] [address] * Blood culture (06/16/2023 1:15 PM EDT) Blood Culture No growth at [address] [facility] Blood STRUCTURE OF RIGHT UPPER LIMB / Unknown 06/16/2023 1:15 PM EDT 06/16/2023 1:50 PM EDT Narrative Resulting Agency Comment Spec In Lab Dennis Castillo MD MICROBIOLOGY - BLOOD ORDERABLES Performing Organization Address [facility] Co de Phone Number [facility] [place] [address] * Blood culture (06/16/2023 12:45 PM EDT) Blood Culture No growth at [address] [facility] Blood STRUCTURE OF LEFT UPPER LIMB / Unknown 06/16/2023 12:45 PM EDT 06/16/2023 1:10 PM EDT Narrative Resulting Agency Comment Spec In Lab Dennis Castillo MD MICROBIOLOGY - BLOOD ORDERABLES Performing Organization Address City/[facility]/ZIP Co de Phone Number [facility] [place] [address] * (ABNORMAL) CRP, acute inflammation (06/16/2023 11:20 AM EDT) C-Reactive Protein 107.8(H) <=4.9 mg/L [facility] Blood Venous Draw / Unknown 06/16/2023 11:20 AM EDT 06/16/2023 11:39 AM EDT Narrative Resulting Agency Comment Spec In Lab Lisa Bautista MD CHEMISTRY ORDERABLE S Performing Organization Address [facility] Co de Phone Number [facility] [place] [address] * (ABNORMAL) Sedimentation rate (06/16/2023 11:20 AM [...] MD HEMATOLOGY ORDERABL ES Performing Organization Address [facility] Co de Phone Number [facility] [place] [address] * (ABNORMAL) Differential, Automated (06/16/2023 11:20 AM EDT) [facility] Neutrophil % 81.3 % [facility] Neutrophil Absolute 14.45(H) 1.70 - 6.10 x10(3)/mc L [facility] Lymph % 12.0 % [facility] Lymphocytes Abs 2.1 0.9 - 3.2 x10(3)/mc L [facility] Monocyte % 5.7 % [facility] Monocyte Abs 1.0(H) 0.3 - 0.9 x10(3)/mc L [facility] Eos % 0.3 % [facility] Eosinophils Abs 0.1 0.0 - 0.4 x10(3)/mc L [facility] Basophil % 0.3 % [facility] Baso Absolute 0.0 0.0 - [...] Absolute 0.08(H) 0.00 - 0.04 x10(3)/ L [facility] Blood 06/16/2023 11:2 0 AM EDT 06/16/2023 11:36 AM EDT Narrative Resulting Agency Comment Spec In Lab Leighton Ordoñez MD HEMATOLOGY ORDERABLE S [facility] [place] [address] * (ABNORMAL) Hemogram (06/16/2023 11:20 AM EDT) White Blood Cell 17.8(H) 4.0 - 9.5 x10(3)/ L [facility] Red Blood Cell 5.94(H) 4.58 - 5.54 x10(6)/mc L [facility] Hemoglobin 17.9(H) 13.7 - 16.5 g/dL [facility] Hematocrit 51.4(H) 40.5 - 48.5 % [facility] Mean Cell Volume 86.5 82.9 - 93.[address] [facility] Mean Cell Hemoglobin 30.1 27.5 - 32.[address] [facility] Mean Cell Hemoglobin Concentration 34.8 32.0 - 35.7 g/dL [facility] Platelet 236 145 - 357 x10(3)/mc L [facility] RDW Standard Deviation 42.5 36.0 - 45.[address] [facility] RDW coefficient of variation 13.4 11.4 - 13.8 % [facility] Mean Platelet Volume 9.1 7.6 - 12.[address] [facility] NRBC% auto 0.0 % [facility] NRBC Absolute 0.000 0.000 - 0.000 x10(3)/mc L [facility] Blood 06/16/2023 11:2 0 AM EDT 06/16/2023 11:36 AM EDT Narrative Resulting Agency Comment Spec In Lab Leighton Ordoñez MD HEMATOLOGY ORDERABLE S [facility] [place] [address] * Basic Metabolic Panel (non-fasting) (06/16/2023 11:20 AM EDT) Glucose 105 65 - 199 mg/dL [facility] Comment:Diabetes: >=200 mg/d L plus symptoms Blood Urea Nitrogen 14 10 - 20 mg/dL [facility] Creatinine 1.20 0.80 - 1.50 mg/dL [facility] Sodium 140 135 - 145 mmol/L [facility] Potassium 4.2 3.5 - 5.0 mmol/L [facility] Comment: Please note: ??Patients with WBC >100,000 may have falsely elevated Potassium levels. ??For accurate Potassium quantification in these patients send serum separator tube (gold top) for subsequent determinations. ??Contact the Clinical Chemistry Laboratory if there are any questions. Chloride 103 98 - 107 mmol/L [facility] Carbon Dioxide 22 22 - 31 mmol/L [facility] Anion Gap 15 5 - 15 mmol/L [facility] Calcium 9.6 8.5 - 10.5 mg/dL [facility] Est Glomerular Filtration Rate 74 >=60 mL/min/1. 73 m?? [facility] In Lab Dennis Castillo MD CHEMISTRY ORDERABLES [facility] [place] [address] * XR Shunt Series (06/16/2023 11:01 AM EDT) [employer] WORKSTATION ID [id number] RAD Anatomical Region Laterality Modality N/A Digital Radiogra phy Impressions 06/16/2023 11:51 AM EDT Right frontal approach MAINTENANCE CLERK shunt catheter with focal discontinuity at the [...] who have questions please contact the health customer care representative that requested your imaging first. ? Electronically signed by: Kraig Rizvi MD, [facility] ([phone]), at 06/16/2023 11:51 AM Narrative 06/16/2023 11:51 AM EDT EXAMINATION: XR SHUNT SERIES CLINICAL HISTORY: recent revision recent revision, new abdominal pain, headache. TECHNIQUE: Multiple AP and lateral views of skull, chest, abdomen. COMPARISON: Radiograph shunt series 06/09/2023 FINDINGS: Right frontal approach MAINTENANCE CLERK shunt catheter, with the intracranial portion terminating [...] shunt series 06/09/2023 FINDINGS: Right frontal approach MAINTENANCE CLERK shunt catheter, with the intracranial portion terminating [...] pattern. Cholecystectomy clips IMPRESSION Right frontal approach MAINTENANCE CLERK shunt catheter with focal discontinuity at thesegment where it enters the abdomen with 2.3 cm gap. Aside from this, theremaining catheter are intact Thank you for letting us participate in the care of this patient. If youare a health care provider and have any questions regarding this report,please contact the number below. For patients who have questions please contactthe health customer care representative that requested your imaging first. Electronically signed by: Kraig Rizvi MD, [facility]([phone]), at 06/16/2023 11:51 AM Derek Polanco DO IMG DX ORDERABLES * CT Head wo Contrast (Generic) (06/16/2023 10:58 AM EDT) WORKSTATION ID [id number] RAD Anatomical Region Laterality Modality Head Computed Tomogra phy Impressions 06/16/2023 11:11 AM EDT Stable examination with no hydrocephalus or other acute abnormality. Thank you for letting us participate in the care of this patient. ??If you are a health care provider and have any questions regarding this report, please contact the number below. ??For patients who have questions please contact the health customer care representative that requested your imaging first. ? Electronically signed by: Eris Hicks MD, [facility] ([phone]), at 06/16/2023 11:11 AM Narrative 06/16/2023 11:11 [...] patients who have questions please contactthe health customer care representative that requested your imaging first. Electronically signed by: Eris Hicks MD, [facility]([phone]), at 06/16/2023 11:11 AM Derek Polanco DO Zelda CT ORDERABLES documented [...] Medication , Indication for (Active or Suspected): CUSTOMER SUPPORT ASSOCIATE/Meningitis New Bag 06/30/2023 3:26 PM EDT 3 [...] 1401, Until Thu06/30/23 at 1838, Constipation, Routine BUpivacaine (pf) (Marcaine) (2.5 mg/mL) 0.25% injection PRN, Starting on Thu06/20/23 at 1418, Until Thu06/30/23 at 1838, Intra-Operative (Intra-Procedure), Routine Given 06/20/2023 2:18 PM EDT 8 mLs 19- Surgical Site calcium carbonate (TUMS) [...] Given 06/20/2023 5:53 PM EDT 25 mg hydrOXYzine (Atarax) tablet 25 mg 25 [...] 2,400 mg, Oral, DAILY PRN, Starting on Thu06/27/23 at 1401, [...] Given 06/28/2023 9:07 AM EDT 150 mg topiramate (Topamax) tablet 25 mg 25 [...] other ordered pain medications are indicated., Routine 2315 (Given - Provider: Josselyn Diaz RN) 0545 (Given - Provider: Josselyn Diaz RN)1224 (Given - Provider: Deng Fuentes RN) ampicillin-sulbactam (Unasyn) 3 g vial attach to sodium chloride 0.9% 100 mL Mini-Bag Plus 3 g, Intravenous, EVERY 6 HOURS, First dose on Thu06/23/23 at 0900, Until Discontinued, Administer over 15 Minutes, Warning Vesicant/Irritant Medication , Indication for (Active or Suspected): CUSTOMER SUPPORT ASSOCIATE/Meningitis 0455 (New Bag - Provider: Josselyn Diaz RN)0510 (Stopped - Provider: Josselyn Diaz RN)0905 (New Bag - Provider: Enriqueta Ortega RN)0920 (Stopped - Provider: Enriqueta Ortega RN)1500 (New Bag - Provider: Enriqueta Ortega, RN)1515 (Stopped - Provider: Enriqueta Ortega, RN)2011 (New Bag - Provider: Josselyn Diaz RN)2026 (Stopped - Provider: Josselyn Diaz RN) 0259 (New Bag - Provider: Josselyn Diaz RN)0314 (Stopped - Provider: Josselyn Diaz, EDWARD)0837 (New Bag - Provider: Rissa Thomas, EDWARD)0852 (Stopped - Provider: Rissa Thomas RN)1357 (MAR Hold - Provider: Admin Adt - Reason: Transfer to a Procedural area)1500 (Automatically Held - Provider: Admin Adt)1821 (MAR Unhold - Provider: Admin Adt)2004 (New Bag - Provider: Josselyn Diaz RN)2019 (Stopped - Provider: Gabriel Cordova RN) 030 (New Bag - Provider: Josselyn Diaz RN)0315 (Stopped - Provider: Josselyn Diaz RN)0848 (New Bag - Provider: Deng Fuentes RN)0903 (Stopped - Provider: Deng Fuentes, EDWARD)1526 (New Bag - Provider: Deng Fuentes, EDWARD)1541 (Due: Stopped - Provider: Deng Fuentes RN) ARIPiprazole (Abilify) tablet 10 mg 10 mg, Oral, DAILY, First dose on Thu06/17/23 at 0900, Until Discontinued, Routine 0904 (Given - Provider: Enriqueta Ortega RN) 0824 (Given - Provider: Rissa Thomas RN)1357 (MAR Hold - Provider: Admin Adt - Reason: Transfer to a Procedural area)1821 (MAR Unhold - Provider: Admin Adt) 0855 (Given - Provider: Deng Fuentes RN) ceFAZolin (Ancef) 1 g vial attached to [...] Josselyn Diaz RN)0615 (Stopped - Provider: Josselyn Diaz RN)1424 (New Bag - Provider: Deng Fuentes RN)1454 (Stopped - Provider: Deng Fuentes RN) diphenhydrAMINE [...] area)1821 (MAR Unhold - Provider: Admin Adt) hydrOXYzine (Atarax) tablet 25 mg 25 mg, Oral, DAILY, First dose on Thu06/17/23 at 0900, Until Discontinued, Routine 0901 (Given - Provider: Enriqueta Ortega RN) 0823 (Given - Provider: Rissa Thomas RN)1357 (APR Hold - Provider: Admin Adt - Reason: Transfer to a Procedural area)1821 (MAR Unhold - Provider: Admin Adt) 0848 [...] 240 mL, Oral, ONCE, 1 dose, On Thu24 at 0845, 8 ounce cup = 240 [...] Oral, 2 TIMES DAILY, First dose on 06/28/23 at 2100, Until Discontinued, Routine 2011 (Given - Provider: Josselyn Diaz RN) 08 (Not Given - Provider: Rissa Thomas, EDWARD - Reason: Patient/family refused - Comment: several BMs overnight, other bowel meds given.)1357 (APR Hold - Provider: Admin Adt - Reason: Transfer to a Procedural area)182 ([facility] Unhold - Provider: Admin Adt)2100 (Not Given - Provider: Josselyn Diaz RN - Reason: Patient/family refused) 09 (Not Given - Provider: Deng Fuentes RN - Reason: Patient/family refused) levothyroxine (Synthroid) tablet 25 mcg 25 mcg, Oral, DAILY, First dose on Thu06/17/23 at 0900, Until Discontinued, Pt should be NPO for 2 hours before and 1 hour after , Routine 05 (Given - Provider: Josselyn Diaz RN) 06 (Given - Provider: Josselyn Diaz RN)135 ([facility] Hold - Provider: Admin Adt - Reason: Transfer to a Procedural area)1820 ([facility] Unhold - Provider: Admin Adt) 0545 (Given - Provider: Josselyn Diaz RN) metoprolol succinate XL (Toprol-XL) tablet 25 mg 25 mg, Oral, DAILY, First dose on Thu06/17/23 at 0900, Until Discontinued, DO NOT CRUSH OR OPEN, Routine 09 (Given - Provider: Enriqueta Ortega RN) 08 (Given - Provider: Rissa Thomas, EDWARD)135 ([facility] Hold - Provider: Admin Adt - Reason: Transfer to a Procedural area)1820 ([facility] Unhold - Provider: Admin Adt) 0847 (Given - Provider: Deng Fuentes, EDWARD) pantoprazole EC (Protonix) tablet 40 mg 40 mg, Oral, DAILY, First dose on Thu06/16/23 at 1538, Until Discontinued, DO NOT CRUSH OR OPEN, Routine 09 (Given - Provider: Enriqueta Ortega RN) 08 (Given - Provider: Rissa Thomas, EDWARD)135 ([facility] Hold - Provider: Admin Adt - Reason: Transfer to a Procedural area)1820 ([facility] Unhold - Provider: Admin Adt) [...] Reason: Transfer to a Procedural area)182 ([facility] Unhold - Provider: Admin Adt)2099 (Not Given - Provider: Josselyn Diaz RN - Reason: Patient/family refused) 09 (Not Given - Provider: Deng Fuentes RN - Reason: Patient/family refused) scopolamine (Transderm-Scop) 1 mg over 3 days patch 1 patch(Linked Group 3) 1 patch, Transdermal, Administer over 72 Hours, EVERY 72 HOURS, First dose on Thu06/26/23 at 1900, Until Discontinued, Routine 135 (APR Hold - Provider: Admin Adt - Reason: Transfer to a Procedural area)1820 ([facility] Unhold - Provider: Admin Adt)185 (Not Given [...] Rissa Thomas RN - Reason: Patient/family refused)135 ([facility] Hold - Provider: Admin Adt - Reason: Transfer to a Procedural area)182 ([facility] Unhold - Provider: Admin Adt)2099 (Not Given - Provider: Josselyn Diaz RN - Reason: Patient/family refused) 09 (Patch Not Verified (add comment) - Provider: Deng Fuentes RN - Comment: Not on) senna-docusate (Pericolace) 8.6-50 mg per tablet 2 tablet 2 tablet, Oral, 2 TIMES DAILY, First dose on Thu06/16/23 at 2100, Until Discontinued, Hold for loose stool. , Routine 09 (Given - Provider: Enriqueta Ortega RN)2010 (Given - Provider: Josselyn Diaz RN) 08 (Given - Provider: Rissa Thomas, EDWARD)1357 (APR Hold - Provider: Admin Adt - Reason: Transfer to a Procedural area)182 ([facility] Unhold - Provider: Admin Adt)2099 (Not Given - Provider: Josselyn Diaz RN - Reason: Patient/family refused) 09 (Not Given - Provider: Deng Fuentes RN - Reason: Patient/family refused) sertraline (Zoloft) tablet 150 mg 150 mg, Oral, DAILY, First dose (after last modification) on Thu06/18/23 at 0900, Until Discontinued, Routine 906 (Given - Provider: Enriqueta Ortega RN) 08 (Given - Provider: Rissa Thomas, [...] 08 (Given - Provider: Rissa Thomas RN)135 ([facility] Hold - Provider: Admin Adt - Reason: Transfer to a Procedural area)182 ([facility] Unhold - Provider: Admin Adt)2003 (Given - Provider: Josselyn Diaz RN) 0848 (Given - Provider: Deng Fuentes RN) Continuous Medication Order 06/28/2023 06/29/2023 06/30/2023 sodium chloride 0.9% infusion (CANCELED) 100 mL/hr, Intravenous, CONTINUOUS, Starting on Thu06/28/23 at 0815, Until Thu06/29/23 at 1833 0737 (New Bag - Provider: Enriqueta Ortega RN)1219 (Rate/Dose Change - Provider: Enriqueta Ortega RN) 0106 (New Bag - Provider: Josselyn Diaz RN)1205 (New Bag - Provider: Rissa Thomas, EDWARD)1357 ([facility] Hold - Provider: Admin Adt - Reason: Transfer to a Procedural area)182 ([facility] Unhold - Provider: Admin Adt)1833 (Stopped - Provider: Rissa Thomas, RN) PRN Medication Order 06/28/2023 06/29/2023 06/30/2023 [...] pain medications are indicated., Routine 1357 ([facility] Hold - Provider: Admin Adt - Reason: Transfer to a Procedural area)1727 ([facility] Unhold - Provider: Liyah Figueroa RN)1729 (Given - Provider: Liyah Figueroa RN) bisacodyL (Dulcolax) suppository 10 mg 10 mg, Rectal, DAILY PRN, Starting on 06/27/23 at 1401, Until Thu06/30/23 at 1838, Constipation, Routine 1357 ([facility] Hold - Provider: Admin Adt - Reason: Transfer to a Procedural area)182 ([facility] Unhold - Provider: Admin Adt) BUpivacaine-EPINEPHrine (Marcaine-epiNEPHrine) 0.25 %-1:200,000 injection (CANCELED) PRN, Starting on Thu06/29/23 at 1440, Until Thu06/30/23 at 1838, Intra-Operative (Intra-Procedure), Routine 1440 (Given - Provider: Rhoda Jimenez MD) calcium carbonate (TUMS) chewable tablet 500 mg 500 mg, Oral, EVERY 6 HOURS PRN, Starting on Thu06/26/23 at 1815, Until Thu06/30/23 at 1838, Abdominal cramping, Routine 1357 ([facility] Hold - Provider: Admin Adt - Reason: Transfer to a Procedural area)182 ([facility] Unhold - Provider: Admin Adt) [...] prior to vancomycin infusion, Routine 1357 ([facility] Hold - Provider: Admin Adt - Reason: Transfer to a Procedural area)1820 ([facility] Unhold - Provider: Admin Adt) [...] concentrate (2400 mg/10 mL), Routine 1357 ([facility] Hold - Provider: Admin Adt - Reason: Transfer to a Procedural area)1820 ([facility] Unhold - Provider: Admin Adt) ondansetron (pf) (Zofran) (2 mg/mL) injection 4 mg 4 mg, Intravenous, EVERY 8 HOURS PRN, Starting on Thu06/26/23 at 1241, Until Thu06/30/23 at 1838, Nausea 1357 ([facility] Hold - Provider: Admin Adt - Reason: Transfer to a Procedural area)1820 ([facility] Unhold - Provider: Admin Adt) senna-docusate (Pericolace) 8.6-50 mg per tablet 2 tablet 2 tablet, Oral, 2 TIMES DAILY PRN, Starting on 06/27/23 at 1401, Until Thu06/30/23 at 1838, Constipation, Routine 1357 ([facility] Hold - Provider: Admin Adt - Reason: Transfer to a Procedural area)182 ([facility] Unhold - Provider: Admin Adt) thrombin (bovine) [...] patch. documented in this encounter Care Teams Military Lawyer Relationship Specialty Start Date End Date Peter Lebron PA [address] [place] [address] PCP - General Internal Medicine 08/21/22 documented as of this encounter
--- OUTSIDE RECORDS SUMMARY | 2024-02-29 15:46 | XMS_ITS | Encounter Summary ---
Author Organization [facility] Address [facility] [place] [address] Care Team Providers Care Assistant Manager Pt Name Role Phone Peter Lebron Primary Care Provider Reason for Visit * Reason Onset Date Comments Appointment 06/10/2023 Encounter Details Date Type Department Care Team (Late st Contact Info) Description 06/10/2023 [place] [phone] Leighton Patel APRN [facility] [address] Appointment Social History Tobacco Use Types Packs/Day Years Used Date Smoking Tobacco: Never Smokeless Tobacco: Never Alcohol Use Standard Drinks/Week Comments No 0 (1 standard drink = 0.6 oz pur e alcohol) [facility] Utilities Answer Date Recorded [...] place to sleep or slept in a penitentiary (including now)? No 07/03/2023 DH IPV Inpatient [...] Notes * Telephone Encounter - Bell Kuhn - 07/01/2023 8:37 AM EDT Images from the original note were not included. Cancelled CT scan on 08/12 Sent a [employer] message to patient. Mirian Murrieta PA Michaels, Melissa G Please cancel the CT-he doesn't need one. The appointments scheduled for 07/15 and 08/12 are perfect. Thank you! * Telephone Encounter - Bell Kuhn - 06/30/2023 2:56 PM EDT Images from the original note were not included. Rescheduled Wilbert to 07/15 Suture removal Scheduled Rescheduled CT Head to 6/20 and Wilbert Pt still admitted appointments will be on d/c paperwork Mirian Murrieta PA P [facility] [place] Mr. Costa needs a post op appointment with Dr. Jimenez in 4-6 weeks (s/p shunt replacement on06/29/23). He also needs a 2-3 week follow up with Cl Atkins in clinic for follow up and suture removal- could we move his appointment on 07/08 to closer to 07/19? Thank you! * Telephone Encounter - Bell Kuhn - 06/10/2023 10:55 AM EDT Images from the original note were not included. Scheduled 07/08 CT and HCK with Cl Atkins. Per Dr. 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
--- OUTSIDE RECORDS SUMMARY | 2024-02-29 15:46 | XMS_ITS | Encounter Summary ---
Author Organization [facility] Address [facility] [place] [address] Care Team Providers Care Neurosurgical Nurse Name Role Phone Peter Lebron Primary Care Provider [phone] Encounter Details Date Type Department Care Team (Latest Contact Info) Description 06/18/2023 Travel Social History Tobacco Use Types Packs/Day Years Used Date Smoking Tobacco: Never Smokeless Tobacco: Never Alcohol Use Standard Drinks/Week Comments No 0 (1 standard drink = 0.6 oz pur e alcohol) [facility] Utilities Answer Date Recorded In the [...] slept in a correction (including now)? No 06/18/2023 DH IPV Inpatient [...] on filedocumented in this encounter Care Teams Neurosurgical Nurse Relationship Specialty Start Date End Date Peter Lebron PA [address] [place] [address] PCP - General Internal Medicine 08/21/22 documented as of this encounter
--- OUTSIDE RECORDS SUMMARY | 2024-02-29 15:46 | XMS_ITS | Encounter Summary ---
[facility] Organization [facility] [place] [address] Care Team Providers Care Network Systems Administrator Name Role Phone Peter Lebron Primary Care Provider Reason for Visit * Reason Comments Neurologic Problem * Auth/Cert (Routine) Specialty Diagnoses / Procedures Referred By Mansi t Referred To Contact Diagnoses Shunt malfunction Shunt malfunction, initial encounter Rhoda Jimenez MD [facility] [place] [address] [facility] Referral ID Status Reason Start Date Expiration Date Visits Re quested Visits Authorized [id number] 1 1 Encounter Details Date Type Department Care Team (Latest Contact Info) Description 06/08/2023 6:45 PM EDT - 06/10/2023 1:40 PM EDT Hospital Encounter Neurosciences and ENT Unit Level [address] [place] [address] Derek Ni MD [facility] [place] [address] Deng [place] [address] Rhoda Jimenez MD [facility] [address] [place] [address] Shunt malfunction, initial encounter Discharge Disposition: Home Social History Tobacco Use Types Packs/Day Years Used Date Smoking Tobacco: Never Smokeless Tobacco: Never Alcohol Use Standard Drinks/Week Comments No 0 (1 standard drink = 0.6 oz pur e alcohol) [facility] Utilities Answer Date Recorded In the past 12 months has th e electric, gas, oil, or water company threatened to shut off services in your home? No 06/09/2023 Hunger Vital Sign Answer Date Recorded Within the past 12 months, y ou worried that your food would run out before you got the money to buy more. Never true 06/09/19 24 Within the past 12 months, t he food you bought just didn't last and you didn't have money to get more. Never true 06/09/2023 PRAPARE - Transportation Answer Date Re corded In the past 12 months, has l ack of transportation kept you from medical appointments or from getting medications? No 05/24 In the past 12 months, has l ack of transportation kept you from meetings, work, or from getting things needed for daily living? No 06/09/2023 Housing Stability Vital Sign Answer Judah e Recorded In the last 12 months, was t here a time when you were not able to pay the mortgage or rent on time? No 06/09/2023 In the last 12 months, how many places have you lived? 1 06/09/2023 In the last 12 months, was t here a time when you did not have a steady place to sleep or slept in a senior living (including now)? No 06/09/2023 DH IPV Inpatient Questions Answer Date Recorded [...] Sign Reading Time Taken Comments Blood Pressure 121/78 06/10/2023 7:55 AM EDT Pulse 72 06/09/2023 4:45 PM EDT Temperature 37 ??C (98.6 ??F) 06/10/2023 7:55 AM EDT Respiratory Rate 18 06/10/2023 7:55 AM EDT Oxygen Saturation 94% 06/10/2023 7:55 AM EDT Inhaled Oxygen Concentration - - Weight 72.6 kg (160 lb) 06/09/2023 10:03 AM EDT Height 167.6 cm (5' 6) 06/09/2023 10:03 AM EDT Body Mass Index 25.82 06/09/2023 10:03 AM EDT documented in this encounter Discharge Summaries * Leighton Patel APRN - 06/10/2023 6:24 AM EDT Patient Name: Chapin Costa Patient Age: 52 y.o. Admit date: 06/08/2023 Discharge Date and Time: 06/10/23 10:35 AM Attending Physician: Rhoda Jimenez MD Discharging Provider: Leighton Patel APRN Discharging Service: NEUROSURGERY Operations/Major Procedures: Procedure(s) (LRB): REVISION OR REPLACEMENT CSF SHUNT (WRVU 11.43) (Right) Active Hospital Problems: Active Hospital Problems Diagnosis Shunt malfunction Resolved Hospital Problems No resolved problems to display. Active Non Hospital Problems: Active Non-Hospital Problems Diagnosis Congenital hydrocephalus Hydrocephalus Seizures Cervicalgia Headache Persistent headaches S/P MERCHANDISE SHOPPER shunt History of Presentation: Per review of relevant records Chapin Costa is a 52 y.o. 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 CT head demonstrating no acute findings or ventriculomegaly. Shunt series demonstrating fracture of the distal catheter within the right upper quadrant abdominal wall, confirmed on CT abdomen pelvis done OSH ED 2 days prior to presentation here. Patient is at his neurologic baseline on exam, though memory eventually slightly worse than normal for the past week. No fevers, chills, or other infectious symptoms, but by blood cell count slightly elevated to 12. A MERCHANDISE SHOPPER Shunt revision was offered to the patient and he elected to proceed. Hospital Course: On 06/08, Chapin Costa was taken to the OR for Revision of his MERCHANDISE SHOPPER shunt. He was found to havea distal catheter fracture, the catheter fracture was repaired by splicing with a metal connector ;there were no apparent complications intraoperatively. The incision closed with Absorbables. Post-op eratively, he was extubated and admitted to the neurosurgical service. On neurologic exam, he was intact with his baseline disconjugate gaze. Post- operative imaging demonstrated expected surgical changes and intact shunt series Home medications were administered during the hospitalization and will be continued after discharge. At time of discharge patient is afebrile, neurologically stable, tolerating a regular diet, ambulating independently, voiding spontaneously, and managing pain with oral pain medications. Important Studies and Lab Data: Labs: Recent Results (from the past 24 hour(s)) Basic Metabolic Panel (non-fasting) Result Value Ref Range Glucose Lvl 130 65 - 199 mg/dL BUN 17 10 - 20 mg/dL Creatinine 1.22 0.80 - 1.50 mg/dL Sodium 135 135 - 145 mmol/L Potassium 4.3 3.5 - 5.0 mmol/L Chloride 102 98 - 107 mmol/L CO2 21 (L) 22 - 31 mmol/L Anion Gap 12 5 - 15 mmol/L Calcium 9.7 8.5 - 10.5 mg/dL Estimated GFR 72 >=60 mL/min/1.73 m?? Hemogram Result Value Ref Range WBC 17.0 (H) 4.0 - 9.5 x10(3)/mcL RBC 5.83 (H) 4.58 - 5.54 x10(6)/mcL Hemoglobin 17.3 (H) 13.7 - 16.5 g/dL Hematocrit 49.1 (H) 40.5 - 48.5 % MCV 84.2 82.9 - 93.1 fL MCH 29.7 27.5 - 32.1 pg MCHC 35.2 32.0 - 35.7 g/dL Platelets 272 145 - 357 x10(3)/mcL RDWSD 41.0 36.0 - 45.0 fL RDWCV 13.5 11.4 - 13.8 % MPV 8.9 7.6 - 12.9 fL nRBC % Auto 0.0 % nRBC Abs Auto 0.000 0.000 - 0.000 x10(3)/mcL Differential, Automated Result Value Ref Range Neutrophils % 85.9 % Neutr Abs (ANC) 14.58 (H) 1.70 - 6.10 x10(3)/mcL Lymphocytes % 10.8 % Lymphocytes Abs 1.8 0.9 - 3.2 x10(3)/mcL Monocytes % 2.7 % Monocyte Abs 0.4 0.3 - 0.9 x10(3)/mcL Eosinophils % 0.0 % Eosinophils Abs 0.0 0.0 - 0.4 x10(3)/mcL Basophils % 0.2 % Basophils Abs 0.0 0.0 - 0.1 x10(3)/mcL Immature Gran % 0.40 % Ute Gran Abs 0.06 (H) 0.00 - 0.04 x10(3)/mcL Urinalysis with reflex Culture Specimen: Clean Catch Urine Result Value Ref Range Glucose UA Negative Negative mg/dL Protein UA Negative Negative mg/dL Bilirubin UA Negative Negative mg/dL Urobilinogen UA Normal Normal mg/dL pH UA 5.5 5.0 - 8.0 Blood UA Negative Negative mg/dL Ketones UA Trace (A) Negative mg/dL Nitrite UA Negative Negative Leukocytes UA Negative Negative mcL Appearance UA Clear Clear Spec [place] UA 1.029 1.005 - 1.030 Color UA Yellow Yellow Culture Reflexed No Studies: SCAN DOC: TELEMETRY STRIPS Result Date: 06/09/2023 Ordered by an unspecified provider. Request For 2nd Read CT Abdomen & Pelvis Result Date: 06/09/2023 EXAMINATION: REQUEST FOR 2ND READ CT ABDOMEN AND PELVIS CLINICAL HISTORY: abdominal pain; Sending Institution [facility]; Date of exam [id number]; I believe a reinterpretation of this exam may alter care of Patient. Yes TECHNIQUE: Reinterpretation of CT abdomen pelvis without intravenous contrast [facility] on 06/06/2023 at 1350 hours. [...] present in the left omentum. Abdominal wall: MERCHANDISE SHOPPER shunt is fractured in the right upper abdominalwall, (series 4 image 94). MERCHANDISE SHOPPER shunt catheter enters the peritoneal space through the right rectus abdominal muscle. Bilateral small fat-containing inguinal hernias. Reproductive organs: Normal. Osseous structures: No suspicious lesions. Mild degenerative changes in the lumbar spine. 1. Fractured MERCHANDISE SHOPPER shunt catheter in the subcutaneous tissues of [...] who have questions please contact the health career services representative that requested your imaging first. Electronically signed by: Kierra Newsome MD, [facility] ([phone]), at 06/09/2023 7:[address] Head wo [...] patients who have questions please contactthe health career services representative that requested your imaging first. Shunt Series [...] who have questions please contact the health career services representative that requested your imaging first. Electronically signed by: Santana Jean-Baptiste MD, [facility] ([phone]), at 06/08/2023 6:47 PM Film Library- Storage [...] storage only. Pending Studies and Lab Data: None Discharge Condition: Good Discharge to: Home Future Appointments and Orders Future Orders Complete By Expires CT Head wo Contrast (Generic) [KYR753 Custom] 07/10/2023 (Approximate) 01/09/2024 Process Instructions: Scheduling Instructions: Questions: Clinical information / miramontes questions for radiologist: Where will study be performed?: [facility] Radiology Stat read required?: Does patient require sedation?: GA rationale: Date of injury if applicable: Is this imaging required as part of a research protocol?: No Discharge Medications: Your Medications Continued medications, unchanged Dose [...] PriLOSEC Take by mouth daily. Refills: 0 oxyCODONE 5 mg tablet Commonly known as: Roxicodone Take 1 tablet by mouth every 6 hours as needed for Pain. 5 mg Quantity: 5 tablet Refills: 0 polyethylene glycoL 17 gram oral [...] cyanocobalamin (vitamin B-12) Refills: 0 STOPPED Medications cephALEXin 500 mg capsule Commonly known as: Keflex Updated Allergies/ADRs: Allergies Allergen Reactions Latex Other reaction(s): hives with latex powdered gloves Other reaction(s): hives with latex powdered gloves Penicillins Other reaction(s): Anaphylaxsis, RASH Vancomycin Other reaction(s): Skin Rash Tegaderm [Transparent Dressings] Itching Vancomycin Analogues Vancomycin Hcl Commonly used phone numbers Neuro-oncology [phone] Radiation oncology [phone] Endocrinology [phone] Infectious disease [phone] Neurology [phone] Hematology/Oncology [phone] Plastic Surgery [phone] Trauma/General Surgery [phone] Urology [phone] Instructions Given to Patient at Discharge: Patient Instructions VENTRICULOPERITONEAL SHUNT DISCHARGE INSTRUCTIONS PRESCRIPTION INSTRUCTIONS: Please see the medication reconciliation list on this discharge summary for a current list of your medications. The following medications are commonly prescribed after surgery. An [x] indicates that these medications have been prescribed for you. [] Opioids - Pain relief: medications such as Roxicodone (oxycodone) or Dilaudid (hydromorphone) Opioids are commonly prescribed after surgery for severe pain. DO NOT use alcohol, drive, or operate heavy machinery while taking these medications. These medications may cause constipation. [] Stool softeners - Constipation relief: medications such as docusate or senakot Stool softeners are commonly used after surgery to help make stools easier to pass. These medications can be obtained [id number] and their use is recommended on an [...] as tolerated will help prevent stiffness) DRIVING: [] You may return to driving 2 weeks after surgery. [x] Do NOT drive until cleared by Neurosurgery. [] You have had a seizure and driving is prohibited (see state regulations). Speak to your doctor for further recommendations. FOLLOW UP PLAN: No future appointments. Incision: [x] Your sutures are absorbable and do not need to be removed. [] Please follow up for suture/staple removal in 10-14 days with your Primary Care Provider or withthe Neurosurgery LINER CHECKER/RN. Appointments: [x] Please follow up in the Neurosurgery Clinic in 4-6 weeks. Please call the Neurosurgery Office at [phone] if you do not receive a scheduled appointment within two weeks. Your follow-up appointment will be with: [] Dr. Davis [] Dr. Ny [] Dr. Mason [] Dr. Kincaid [] Dr. Colon [] Dr. Oviedo [x] Dr. Jimenez [] Associate Provider Imaging: [] No Imaging required at follow-up. [x] Head CT [] XR Shunt series HOW TO REACH NEUROSURGERY Office Hours (Thursday through Thursday 8am-5pm): Call On weekends or after office hours (after 5pm or before 8am): Call [phone] and ask the small kick press operator to page the Neurosurgery Resident/Advanced Practice Provider information scientist. *Your surgeon may not be call center team leader (especially after office hours or on the weekend) so be ready totell about yourself and your surgery when you call. Neurosurgery Providers Adult Neurosurgery Dr. Ge Medina Pediatric Neurosurgery Dr. Tracey Lee Advanced Practice Providers Sonia Escalona, Nurse Practitioner (outpatient telehealth) Thelma Hebert, Physician Tiller Man (inpatient/outpatient: neuro-oncology) Mirian Murrieta, Physician Tiller Man (inpatient) Claire Brody, Physician Tiller Man (inpatient) Roberto Samano, Physician Tiller Man (inpatient) Dennis Calix, Nurse Practitioner (outpatient: pediatric) Ness Vance, Nurse Practitioner (outpatient: vascular) Mary Jessica, Physician Tiller Man (outpatient: spine) Cl Atkins Physician Tiller Man (outpatient) Outpatient Nurses EDWARD Knox APRN 06/10/2023 documented in this encounter Discharge Instructions * Patient Instructions* Leighton Patel Zelda, LIZA - 06/10/2023 6:29 AM EDT VENTRICULOPERITONEAL SHUNT DISCHARGE INSTRUCTIONS PRESCRIPTION INSTRUCTIONS: Please see the medication reconciliation list on this discharge summary for a current list of your medications. The following medications are commonly prescribed after surgery. An [x] indicates that these medications have been prescribed for you. [] Opioids - Pain relief: medications such as Roxicodone (oxycodone) or Dilaudid (hydromorphone) Opioids are commonly prescribed after surgery for severe pain. DO NOT use alcohol, drive, or operate heavy machinery while taking these medications. These medications may cause constipation. [] Stool softeners - Constipation relief: medications such as docusate or senakot Stool softeners are commonly used after surgery to help make stools easier to pass. These medications can be obtained [id number] and their use is recommended on an [...] as tolerated will help prevent stiffness) DRIVING: [] You may return to driving 2 weeks after surgery. [x] Do NOT drive until cleared by Neurosurgery. [] You have had a seizure and driving is prohibited (see state regulations). Speak to your doctor for further recommendations. FOLLOW UP PLAN: No future appointments. Incision: [x] Your sutures are absorbable and do not need to be removed. [] Please follow up for suture/staple removal in 10-14 days with your Primary Care Provider or withthe Neurosurgery LINER CHECKER/RN. Appointments: [x] Please follow up in the Neurosurgery Clinic in 4-6 weeks. Please call the Neurosurgery Office at [phone] if you do not receive a scheduled appointment within two weeks. Your follow-up appointment will be with: [] Dr. Davis [] Dr. Ny [] Dr. Mason [] Dr. Kincaid [] Dr. Colon [] Dr. Oviedo [x] Dr. Jimenez [] Associate Provider Imaging: [] No Imaging required at follow-up. [x] Head CT [] XR Shunt series HOW TO REACH NEUROSURGERY Office Hours (Thursday through Thursday 8am-5pm): Call On weekends or after office hours (after 5pm or before 8am): Call [phone] and ask the small kick press operator to page the Neurosurgery Resident/Advanced Practice Provider information scientist. *Your surgeon may not be call center team leader (especially after office hours or on the weekend) so be ready totell about yourself and your surgery when you call. Neurosurgery Providers Adult Neurosurgery Dr. Ge Medina Pediatric Neurosurgery Dr. Tracey Lee Advanced Practice Providers Sonia Escalona, Nurse Practitioner (outpatient telehealth) Thelma Hebert, Physician Tiller Man (inpatient/outpatient: neuro-oncology) Mirian Murrieta, Physician Tiller Man (inpatient) Claire Brody, Physician Tiller Man (inpatient) Roberto Samano, Physician Tiller Man (inpatient) Dennis Calix, Nurse Practitioner (outpatient: pediatric) Ness Vance, Nurse Practitioner (outpatient: vascular) Mary Jessica, Physician Tiller Man (outpatient: spine) Cl Atkins, Physician Tiller Man (outpatient) Outpatient Nurses Jose Rafael Kilne RN documented in this encounter Medications at [...] the muscle every 14 days. 0 05/03/2018 cholecalciferol, Vitamin D3, 50 mcg (2,000 unit) Capsule Take by mouth daily. 05/24/2022 07/02/2023 omeprazole (PriLOSEC) [address] capsule Take 20 mg by mouth daily. 12/18/2021 09/24/2023 Vitamin B-12 5,000 mcg Tablet, Sublingual Take 5,000 mcg by mouth daily. 05/24/2022 09/24/2023 oxyCODONE (Roxicodone) 5 mg tablet Take 1 tablet by mouth every 6 hours as needed for Pain. 5 tablet 05/26/2022 06/30/2023 polyethylene glycoL (Miralax) 17 gram oral powder [...] as of this encounter Progress Notes * Elke Laughlin, EDWARD - 06/10/2023 1:33 PM EDT Chapinmark Costa discharged to Home by private car with Family member. All belongings sent with patient. ADAM removed, incision site dry and intact , skin free from pressure ulcers. Discharge instructions,and follow-up appointments reviewed, education provided on site care. All questions answered. Patient instructed to call with concerns. * Laila Ricci MD - 06/10/2023 7:07 AM EDT NEUROSURGERY PROGRESS NOTE PLEASE PAGE [phone] WITH QUESTIONS ID: Chapin Costa is a 52 y.o. 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 HD# 1 POD # 1 Day Post-Op 06/09/23 Dr. Jimenez: Revision of distal VPS catheter INTERVAL HX/ROS: -SANIA -Voiding, tolerating PO fluids -States that R sided abdominal pain is resolved postop, hungry for breakfast, would like to go home -WBC 17 from 12 yesterday EXAM: No drains GEN: NAD sitting up using cell phone NEURO: AO3, pleasant, conversant, speech fluent PERRL, disconjugate gaze with R exotropia (baseline) Face symmetric TML MOTOR: FC x 4 full strength Sensation grossly intact to light touch x4 Scalp incisions over shunt well healed RUQ abdominal dressing CDI A/P: Chapin Costa is a 52 y.o. 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 Now s/p exploration of distal catheter. Found to be fractured in subcutaneous space at level of abdomen, both segments patent so both were spliced together using metal connector. Symptoms with which he presented have resolved, can discharge home today. Prior to leaving will check UA and CXR to ensure that WBC just reactive in postop setting. -Neuro checks: q4h -XRSS done -UA - if benign can discharge with one week PCP f/u -goal SBP 90-160 -anti-HTN: hydralazine, labetalol, nicardipine gtt PRN -Diet: Regular diet. -RBOs -General surgery consult -hold anticoagulation and antiplatelet -Continue home medications -activity as tolerated. -DISPOSITION: pending course -FULL CODE Please page [phone] with questions/concerns for in-house NSGY patients IMAGING: Results for orders placed or performed during the hospital encounter of 06/08/23 XR Shunt Series (Exam End: 06/08/2023 6:25 PM) Impression FINDINGS/IMPRESSION: Shunt catheter discontinuity/fracture at the segment projecting over the RIGHT upper abdomen. Thank you for letting us participate in the care of this patient. If you are a health care provider and have any questions regarding this report, please contact the number below. For patients who have questions please contact the health career services representative that requested your imaging first. Electronically signed by: Santana Jean-Baptiste MD, [facility] ([phone]), at 06/08/2023 6:[address] Head wo Contrast (Generic) (Exam End: 06/08/2023 6:53 PM) Impression Right frontal shunt tube appears generally unchanged in position. Right temporal craniotomy unchanged. Dilatation of the right temporal horn is stable when compared with 10/13/2022. Otherwise the ventricles are decompressed. No intracranial hemorrhage or mass is identified. Thank you for letting us participate in the care of this patient. If you are a health care provider and have any questions regarding this report, please contact the number below. For patients who have questions please contact the health career services representative that requested your imaging first. Request For 2nd Read CT Abdomen & Pelvis (Exam End: 06/08/2023 10:31 PM) Impression 1. Fractured MERCHANDISE SHOPPER shunt catheter in the subcutaneous tissues of [...] who have questions please contact the health career services representative that requested your imaging first. Electronically signed by: Kierra Newsome MD, [facility] ([phone]), at 06/09/2023 7:44 AM MEDICATIONS: Scheduled Meds: Continuous Infusions: PRN Meds: Vitals: Temp: [36 ??C (96.8 ??F)-37.6 ??C (99.7 ??F)] Heart Rate: [67-80] Resp: [14-23] BP: (98-125)/(59-86) SpO2: [90 %-98 %] Heart Rate from SpO2: [66 bpm-79 bpm] BMI: Weight: 72.6 kg (160 lb) (06/09/23 1003) BMI (Calculated): 25.82 BMI Classification: Over Weight I/O: I/O last 3 completed shifts: In: 985 [P.O.:280; I.V.:705] Out: 0 LABS: Recent Labs 06/10/23 0610 06/08/23 1837 WBC 17.0* 12.7* HGB 17.3* 17.6* PLATELET 272 265 Recent Labs 06/08/23 1835 NA 138 K 4.0 CL 100 CO2 26 BUN 10 CREATININE 1.14 Recent Labs 06/08/23 1835 PT 11.7 INR 1.0 Active Hospital Problems Diagnosis Shunt malfunction Resolved Hospital Problems No resolved problems to display. Active Non-Hospital Problems Diagnosis Congenital hydrocephalus Hydrocephalus Seizures Cervicalgia Headache Persistent headaches S/P MERCHANDISE SHOPPER shunt Laila Ricci MD 06/10/2023 * Laila Ricci MD - 06/09/2023 4:08 PM EDT NEUROSURGERY PROGRESS NOTE PLEASE PAGE [phone] WITH QUESTIONS ID: Chapin Costa is a 52 y.o. 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 HD# 0 POD # Day of Surgery 06/09/23 Dr. Jimenez: Revision of distal VPS catheter INTERVAL HX/ROS: -POC EXAM: No drains GEN: Waking up from anesthesia NEURO: Opening eyes to voice, tracking Says name PERRL, disconjugate gaze (baseline) Face symmetric TML MOTOR: FC x 4 symmetric strength Sensation grossly intact to light touch x4 Scalp incisions over shunt is clean dry and intact RUQ abdominal dressing CDI A/P: Chapin Costa is a 52 y.o. 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 Now s/p exploration of distal catheter. Found to be fractured in subcutaneous space at level of abdomen, both segments patent so both were spliced together using metal connector. Will observe overnight. -Neuro checks: q4h -XRSS pending -goal SBP 90-160 -anti-HTN: hydralazine, labetalol, nicardipine gtt PRN -Diet: Regular diet. -RBOs -General surgery consult -hold anticoagulation and antiplatelet -Continue home medications -activity as tolerated. -DISPOSITION: pending course -FULL CODE Please page [phone] with questions/concerns for in-house NSGY patients IMAGING: Results for orders placed or performed during the hospital encounter of 06/08/23 XR Shunt Series (Exam End: 06/08/2023 6:25 PM) Impression FINDINGS/IMPRESSION: Shunt catheter discontinuity/fracture at the segment projecting over the RIGHT upper abdomen. Thank you for letting us participate in the care of this patient. If you are a health care provider and have any questions regarding this report, please contact the number below. For patients who have questions please contact the health career services representative that requested your imaging first. Electronically signed by: Santana Jean-Baptiste MD, [facility] ([phone]), at 06/08/2023 6:[address] Head wo Contrast (Generic) (Exam End: 06/08/2023 6:53 PM) Impression Right frontal shunt tube appears generally unchanged in position. Right temporal craniotomy unchanged. Dilatation of the right temporal horn is stable when compared with 10/13/2022. Otherwise the ventricles are decompressed. No intracranial hemorrhage or mass is identified. Thank you for letting us participate in the care of this patient. If you are a health care provider and have any questions regarding this report, please contact the number below. For patients who have questions please contact the health career services representative that requested your imaging first. Request For 2nd Read CT Abdomen & Pelvis (Exam End: 06/08/2023 10:31 PM) Impression 1. Fractured MERCHANDISE SHOPPER shunt catheter in the subcutaneous tissues of [...] who have questions please contact the health career services representative that requested your imaging first. Electronically signed by: Kierra Newsome MD, [facility] ([phone]), at 06/09/2023 7:44 AM MEDICATIONS: Scheduled Meds: Continuous Infusions: PRN Meds: Vitals: Temp: [36 ??C (96.8 ??F)-36.5 ??C (97.7 ??F)] Heart Rate: [61-91] Resp: [8-22] BP: (95-137)/(59-104) SpO2: [90 %-98 %] Heart Rate from SpO2: [66 bpm-79 bpm] BMI: Weight: 72.6 kg (160 lb) (06/09/23 1003) BMI (Calculated): 25.82 BMI Classification: Over Weight I/O: No intake/output data recorded. LABS: Recent Labs 06/08/231836 WBC 12.7* HGB 17.6* PLATELET 265 Recent Labs 06/08/231834 NA 138 K 4.0 CL 100 CO2 26 BUN 10 CREATININE 1.14 Recent Labs 06/08/231834 PT 11.7 INR 1.0 Active Hospital Problems Diagnosis Shunt malfunction Resolved Hospital Problems No resolved problems to display. Active Non-Hospital Problems Diagnosis Congenital hydrocephalus Hydrocephalus Seizures Cervicalgia Headache Persistent headaches S/P MERCHANDISE SHOPPER shunt Laila Ricci MD 06/09/2023 * Gwendolyn Peralta RN - 06/09/2023 4:00 PM EDT 1600: RN break coverage. A&Ox4, follows commands. * Sole Steel RN - 06/09/2023 3:52 PM EDT 1542: Chapin Costa arrived from OR to PACU 20. Attached to monitors, alarms set appropriately & are audible. Oral airway in on arrival, lungs are clear. 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 Abdo site is clean and dry with mepilex intact. 1645: Phase 2 criteria met. Updates given to L5WD EDWARD Gallegos. * Laila Ricci MD - 06/09/2023 7:36 AM EDT NEUROSURGERY PROGRESS NOTE PLEASE PAGE [phone] WITH QUESTIONS ID: Chapin Costa is a 52 y.o. 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 HD# 0 POD # pending INTERVAL HX/ROS: -SANIA -Largest complaint is RLQ abdominal pain -Baseline ALICEA 3x/wk which is relatively unchanged, but more tired lately EXAM: No drains GEN:NAD NEURO: Wide awake, alert, oriented x4 Conversational, speech fluent PERRL, disconjugate gaze (baseline) but EOMI, VFF grossly, FS, TML No pronator drift MOTOR: RUE:5/5 LUE:5/5 RLE: 5/5 LLE: 5/5 Sensation grossly intact to light touch x4 Scalp incisions over shunt is clean dry and intact, slightly tender Abdomen tender over RLQ A/P: Chapin Costa is a 52 y.o. 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 CTAP overread appears benign with no evidence of abdominal infectious process. Likely discomfort related to catheter fracture in abdominal wall, but will discuss with General Surgery. Likely will go to OR for distal catheter revision today. -Neuro checks: q4h -D case for shunt revision today -Imaging: complete -goal SBP 90-160 -anti-HTN: hydralazine, labetalol, nicardipine gtt PRN -Diet: NPO diet (Give Meds). -RBOs -General surgery consult -hold anticoagulation and antiplatelet -activity as tolerated. -OR today -DISPOSITION: pending course -FULL CODE Please page [phone] with questions/concerns for in-house NSGY patients IMAGING: Results for orders placed or performed during the hospital encounter of 06/08/23 XR Shunt Series (Exam End: 06/08/2023 6:25 PM) Impression FINDINGS/IMPRESSION: Shunt catheter discontinuity/fracture at the segment projecting over the RIGHT upper abdomen. Thank you for letting us participate in the care of this patient. If you are a health care provider and have any questions regarding this report, please contact the number below. For patients who have questions please contact the health career services representative that requested your imaging first. Electronically signed by: Santana Jean-Baptiste MD, [facility] ([phone]), at 06/08/2023 6:[address] Head wo Contrast (Generic) (Exam End: 06/08/2023 6:53 PM) Impression Right frontal shunt tube appears generally unchanged in position. Right temporal craniotomy unchanged. Dilatation of the right temporal horn is stable when compared with 10/13/2022. Otherwise the ventricles are decompressed. No intracranial hemorrhage or mass is identified. Thank you for letting us participate in the care of this patient. If you are a health care provider and have any questions regarding this report, please contact the number below. For patients who have questions please contact the health career services representative that requested your imaging first. Request For 2nd Read CT Abdomen & Pelvis (Exam End: 06/08/2023 10:31 PM) Impression 1. Fractured MERCHANDISE SHOPPER shunt catheter in the right anterior abdominal wall. 2. No acute intra-abdominal/pelvic infectious or inflammatory findings. Preliminary report signed by: Homer Flowers at 06/09/2023 6:52 AM MEDICATIONS: Scheduled Meds: Continuous Infusions: PRN Meds: Vitals: Temp: [36 ??C (96.8 ??F)] Heart Rate: [61-91] Resp: [8-22] BP: (95-137)/(62-104) SpO2: [90 %-97 %] Heart Rate from SpO2: -- BMI: Weight: 72.6 kg (160 lb) (06/08/23 1730) I/O: No intake/output data recorded. LABS: Recent Labs 06/08/23 1837 WBC 12.7* HGB 17.6* PLATELET 265 Recent Labs 06/08/23 1835 NA 138 K 4.0 CL 100 CO2 26 BUN 10 CREATININE 1.14 Recent Labs 06/08/23 1835 PT 11.7 INR 1.0 Active Hospital Problems Diagnosis Shunt malfunction Resolved Hospital Problems No resolved problems to display. Active Non-Hospital Problems Diagnosis Congenital hydrocephalus Hydrocephalus Seizures Cervicalgia Headache Persistent headaches S/P MERCHANDISE SHOPPER shunt Laila Ricci MD 06/09/2023 documented in this encounter H&P Notes * Richard Valles MD - 06/09/2023 6:39 AM EDT [facility] NEUROSURGERY Admission H&P Update The patient was seen & examined by Richard Valles MD on 06/09/2023. Please see NSGY consult note from 06/09/2023 for further details on this admission. There are no changes to report. Richard Valles MD 06/09/2023 6:39 AM [facility] Neurosurgery NSGY Inpatient Pager: #[phone] documented in this encounter ED Notes * Zoya Canales RN - 06/08/2023 10:18 PM EDT Pt guardian requesting to be given a call when he has a room in the hospital. * Derek Ni MD - 06/08/2023 9:18 PM EDT Brief Attending Note HPI: This is a pleasant 52-year-old male with history of congenital hydrocephalus secondary to aqueductal stenosis status post MERCHANDISE SHOPPER shunt placement at the age of 2 months. He states his last shunt revision was approximately 1 year ago. He reports 3 to 4 days of fatigue malaise and diffuse headaches which are not normal for him and are consistent with when he has had shunt problems in the past. No focal neurological symptoms numbness weakness noted slurred speech no difficulty walking no fevers or chills. No trauma anywhere. Patient was evaluated at an [facility] where he had CT scan reportedly that demonstrated shunt malfunction in the abdomen and was sent here for evaluation by neurosurgery. He has no other complaints currently. ROS: Pertinent positives and negatives are included in the history of present illness, otherwise 10 systems are reviewed and negative Gen: well appearing, NAD HENT: atraumatic, oropharynx clear, mmm Pulm: CTA b/l, no respiratory distress Card: RRR Abd: soft, non-tender, non-distended Skin: warm and dry Neuro: no focal weakness, alert and oriented x 3 MS: No obvious deformity Psych: Normal mood Assessment: Patient will be admitted to the neurosurgical service for shunt revision I have also ordered request for second read for abdominal CT scan from this past Thursday at [facility]. He states he is having theexact same symptoms that he had when he had the CT scan and is not worse or different currently. Heis hemodynamically stable and neurologically intact without any change in his mental status on my reevaluation. Derek Ni MD 06/08/230 * Dyana Neumann, LIZA - 06/08/2023 5:32 PM EDT In-Triage Brief Provider Note: Brief HPI: 52-year-old male with history of headache, seizures, hydrocephalus with MERCHANDISE SHOPPER shunt in place presentedto [facility] for abdominal pain today where he had a CT abdomen pelvis which showed break in shunt tubein abdomen. Patient is having ongoing pain. Limited Exam: Ambulatory to triage, afebrile with stable vital signs. Tests Ordered: Will page neurosurgery 1800: Spoke with neurosurgery who are not aware of this patient. Have ordered shunt workup including labs, BC X2, shunt series and CT head Requires further evaluation in the emergency department. Stable to return to the waiting room. Dyana Neumann, LIZA 06/08/23 1736 Dyana Neumann, FILLER ROOM ATTENDANT 06/08/23 1805 documented in this encounter Miscellaneous Notes * Care Management Discharge - Tess Biag RN - 06/10/2023 1:40 PM EDT CARE MANAGEMENT FINAL DISCHARGE NOTE Chart reviewed, care reviewed with primary team and at interdisciplinary rounds. Patient is medically ready for discharge to home. Needs for Transition of Care: Plan for discharge is: Home w/o Services Outpatient Agency/Support Group Needs: None Agency Referrals & Follow-up Care: No new services needed. Transportation: family or friend will provide Functional status prior to admission: Independent Home Environment: Others in the home: parent(s). Current Living Arrangements: home/apartment/condo. Accessibility Concerns:Lives in a 3rd floor apartment with an elevator, Patient can also navigate stairs, he wears a CPAP at home, He lives with his mother.. Current Functional Ability: Assistive Person DME used at home: none (wears a CPAP at night) DME Needed at Discharge: None Patient is insured through: Primary Insurance: MEDICARE Payor: MEDICARE / Plan: MEDICARE PART A & B / Product Type: *No Product type* / Secondary Insurance: MEDICAID [place] Prescription Coverage: Yes This plan was formulated with input from guardian and team. All are in agreement with plan. Tess Baig [facility] pager [phone] * Plan of Care - Megan Lemons RN - 06/10/2023 6:00 AM EDT Problem: Adult Inpatient Plan of Care Goal: Optimal Comfort and Wellbeing Outcome: Ongoing (Interventions Implemented as Appropriate) * Plan of Care - El Denney RN - 06/09/2023 6:34 PM EDT Problem: Adult Inpatient Plan of Care Goal: Plan of Care Review 06/09/20231833 by El Denney RN Outcome: Ongoing (Interventions Implemented as Appropriate) 06/09/2023 1031 by El Denney RN Outcome: Ongoing (Interventions Implemented as Appropriate) Goal: Patient-Specific Goal (Individualized) 06/09/20231833 by El Denney RN Outcome: Ongoing (Interventions Implemented as Appropriate) 06/09/20231030 by El Denney RN Outcome: Ongoing (Interventions Implemented as Appropriate) Goal: Absence of Hospital-Acquired Illness or Injury 06/09/20231833 by El Denney RN Outcome: Ongoing (Interventions Implemented as Appropriate) 06/09/20231030 by El Denney RN Outcome: Ongoing (Interventions Implemented as Appropriate) Goal: Optimal Comfort and Wellbeing 06/09/20231833 by El Denney RN Outcome: Ongoing (Interventions Implemented as Appropriate) 06/09/20231030 by El Denney RN Outcome: Ongoing (Interventions Implemented as Appropriate) Goal: Readiness for Transition of Care 06/09/20231833 by El Denney RN Outcome: Ongoing (Interventions Implemented as Appropriate) 06/09/20231030 by El Denney RN Outcome: Ongoing (Interventions Implemented as Appropriate) * Op Note - Rhoda Jimenez MD - 06/09/2023 4:34 PM EDT [facility] Operative Note Patient Name: Chapin Costa : [id number] MR#: [id number] Case Date: 06/09/2023 Surgeon: Surgeon(s) and Role: * Rhoda Jimenez MD - Primary * Laila Ricci MD - Resident - Assisting Preoperative diagnosis: shunt malfunction Postoperative diagnosis: * No post-op diagnosis entered * Procedure(s) (LRB): REVISION OR REPLACEMENT CSF SHUNT (WRVU 11.43) (Right) Findings: distal shunt fracture in the abdomen as seen on CT with good proximal and distal flow. The shunt was reconnected with a metal connector. Anesthesia: General Estimated Blood Loss: Specimens removed during surgery: None Drains: None [...] 52-year-old gentleman with a history of shunted hydrocephalus. He presentswith abdominal pain, and several days of confusion. A CT chest abdomen pelvis demonstrates distal fracture of the catheter. After discussion of the risks, benefits, and alternatives, his guardians were consented for shunt exploration and revision. Patient was seen and interviewed in the emergency department. An updated history and physical was obtained. The op site was the right side of the head and belly, this was marked with green reno-sparks. The patient was taken back to the operating by anesthesia. General endotracheal anesthesia was inducedwithout complication. The patient was positioned supine, head was placed in a gel donut, and a small roll was placed underneath the right shoulder. All pressure points were padded. The right posterior scalp was shaved to expose the occipital incision. The entire head, neck, and belly were now prepped and draped in the usual sterile fashion. A timeout was undertaken. 2 g of cefazolin were administered intravenously. Using ultrasound, we were able to image the shunt catheter as it traversed over the rib cage towards the belly. We identified the area of fracture, and planned an incision directlyoverlying this. The ultrasound was removed, and the skin was anesthetized with quarter percent Marcaine with epinephrine. A 10 blade was used to open the skin, and Bovie cautery was used to dissect down to the subcutaneous tissue. We encountered calcified catheter approximately 1 cm below the skin surface. We could see that there was free- flowing CSF in the space. We then proceeded to expose the catheter, and could clearly see that the catheter was fractured and that the 2 ends were not opposing. We dissected the calcified portion off of the proximal catheter and confirmed visually that therewas spontaneous CSF egress. This was then clamped with a bulldog, we then proceeded to inspect the distal portion of the catheter. This was also encased in heterotopic ossification. We pulled the catheter back into the incision and cut the catheter so that there was a clear segment without calcification. The manometer was limited to 40 cm of water, connected to the distal catheter, and then allowed to drain by gravity. The drainage was brisk. We repeated the drainage to confirm that the distal catheter was indeed patent. At this point, we elected to splice the 2 ends of the catheter back together with the metal connector. The medical doctor was opened and brought into the field. The connector was placed on the proximal catheter, and secured with silk tie. We could see spontaneously CSF through the connector, the distal connector was then put into the distal catheter and secured with another 2-0 silk tie. We then confirmed that the connector and the catheters were lying flat on the inci dodie without any kinks. The entire wound was copiously irrigated with LR. We closed in layered fashion. Interrupted 3-0 Vicryl's were used to the deep dermal layer, and the skin was closed with 4-0 Monocryl in running subcuticular fashion. At the end of the case, all counts were correct. I was present for the entire procedure. Surgical Infection Prevention Bundle Used? N/A Attestation: Case Date: 06/09/2023 I was present and I participated during the entire procedure (does not need to include opening and closing). Rhoda Jimenez MD 06/09/2023 * Brief Op Note - Laila Ricci MD - 06/09/2023 3:32 PM EDT Brief Operative Note Patient Name: Chapin Costa : [id number] MR#: [id number] Case Date: 06/09/2023 Surgeon: Surgeon(s) and Role: * Rhoda Jimenez MD - Primary * Laila Ricci MD - Resident - Assisting Preoperative diagnosis: shunt malfunction Postoperative diagnosis: * No post-op diagnosis entered * Procedure(s) (LRB): REVISION OR REPLACEMENT CSF SHUNT (WRVU 11.43) (Right) Anesthesia: General Findings: Distal catheter fracture, both pieces of distal catheter found to be patent, repaired by splicing with metal connector at level of abdomen, closure with absorbables Complications: none Estimated Blood Loss: * No values recorded between 06/09/2023 2:56 PM and 06/09/2023 3:29 PM * Specimens removed during surgery: None [...] Prevention Bundle Used? N/A Laila Ricci MD 06/09/2023 * Initial Assessments - Justin Mancilla RN - 06/09/2023 2:04 PM EDT Office of Care Management Initial Assessment Justin Mancilla RN reviewed record and discussed patient with Care Team. Source of Information: Team, bedside nurse, medical record, and Parent Introduced self/reviewed role; services accepted. Spoke with mom and legal guardian by phone. Admitted From: Home Reason for Hospitalization: abd pain Covid Vaccination Status: 1st, 2nd & booster Last COVID test: Past medical History: Past Medical History: Diagnosis Date Depression Hearing loss r ear Hydrocephalus associated with congenital aqueduct stenosis Hyperlipidemia Hypertension Memory disorder Seizures Syncope and collapse Vision abnormalities related to hydrocephalus Hospitalizations Within the Past 30 Days: no previous admission in last 30 days Current Decision-Making Capacity: Guardian Name(s) of Court Appointed Guardian(s): Tracy Fregoso- mother Court Appointed Guardian(s) Contact Information: Guardianship paperwork on file?: Yes If AD's have not been completed the following surrogate would be surrogate decision maker per [place] surrogate decision making law. (Only good for 180 days) Any patient receiving care in [place] must abide by [place] law. The hierarchy for surrogate decision making [...] (i) The agent with financial power of contracts attorney or a conservator appointed in accordance with RSA 464-A. (j) The guardian of the patient???s estate. Advance Care Planning: Attempt Cardiopulmonary Resuscitation - Inpatient <no information> -Advanced Directive: Yes, on file Who is your DPOA-HC?: Parent Current Coping/Education/Information Needs: none Current Functional Ability: Assistive Person Functional Status Prior to Admission: Independent Prior ADLs & IADLs: Independent with all ADLs & IADLs Home Environment: Others in the home: parent(s). Current Living Arrangements: home/apartment/condo. Accessibility Concerns:Lives in a 3rd floor apartment with an elevator, Patient can also navigate stairs, he wears a CPAP at home, He lives with his mother.. In the last 12 months, was there [...] In the past 12 months has the [employer], gas, oil, or water [employer] threatened to shut off services in your [...] for daily living?: No Current DME: none (wears a CPAP at night) Home Address confirmed as: [address] [facility] [address] Social & Family Supports: All names listed below confirmed with patient as current and correct Extended Emergency Contact Information Primary Emergency Contact: IldefonsoTracy gill Address: [place] [address] [facility] Mobile Relation: Guardianship Secondary Emergency Contact: ILDEFONSORICH Address: [address], [place] [id number] [place] [address] Mobile Relation: Step parent Current Care Provided by: self Provides Primary Care For: no one, no one, unable/limited ability to care for self Caregiver if needed: parent(s) Quality of Family relationships: helpful, involved Community Resources being provided currently: none Behavioral Health History: depression , memory issues Substance Use/Abuse confirmed: Social History Tobacco Use [...] points: Addiction likely Other Pertinent/Service Specific Information: none Health/Prescription Coverage: Primary Insurance: MEDICARE Payor: MEDICARE / Plan: MEDICARE PART A & B / Product Type: *No Product type* / Secondary Insurance: MEDICAID [place] ; Prescription Coverage: Yes Preferred Pharmacy: [facility] [place], [place] [address] [address] Status: Patient is a : No Primary Care Provider confirmed: MARVA Gordon [phone] Patient/Caregiver Goals of Treatment: to return home Potential Needs for Transition of Care: none Agency Referrals: Not Applicable Transportation: no concerns Transportation Anticipated: family or friend will provide Concerns to be Addressed: denies needs/concerns at this time Assessment: Patient is admitted to Neuro Surg service for Shunt malfunction Plan: surgery today to repair shunt, A member of the Care Management team will continue to monitor progress, follow for continuity of care and assist with transition of care planning. Akash Mancilla RN BSN [facility] * Plan of Care - El Denney RN - 06/09/2023 8:26 AM EDT Patient arrived to unit * Consult Note - Justin Allen MD - 06/09/2023 6:30 AM EDT Acute Care Surgery Inpatient Consult Note Patient Name: Chapin Costa MR#: [id number] : 1970 Admission Date: 06/08/2023 Reason for Consult: Abdominal exposure for MERCHANDISE SHOPPER shunt History of Present Illness: Chapin Costa is a 52 y.o. 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 Mr. Costa developed abdominal pain over the last 4-5 days that has been increasing progressive. The pain is located in the RUQ. He presented to an OSH where a CT A/P was performed which demonstrated a fracture of the distal catheter within the RUQ. He denies any fevers, chills, nausea or vomiting. Upon arrival to the ED, he was HDS w/ a WBC of 12. Given his complexity of revision surgery, ACS was consulted for assistance intra-operatively. 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 Hyperlipidemia Hypertension Memory disorder Seizures Syncope and collapse Vision abnormalities related to hydrocephalus Patient Active Problem List Diagnosis Code S/P MERCHANDISE SHOPPER shunt Z98.2 Persistent headaches R51.9 Headache R51.9 Cervicalgia M54.2 Seizures R56.9 Hydrocephalus G91.9 Congenital hydrocephalus Q03.9 PSH: Past Surgical History: Procedure Laterality Date CARPAL TUNNEL RELEASE Right CHOLECYSTECTOMY, LAPAROSCOPIC PRO ALVEOLOPLASTY W EXTRACTIONS, 4 OR MORE TEETH, PER QUADRANT N/A 10/18/2020 ALVEOPLASTY,IN CONJUNCTION WITH EXTRACTIONS,PER QUADRANT,ENT (WRVU 4.06) performed by Shan Rivero MD at [facility] OSC PRO EXTRACTION, ERUPTED TOOTH OR EXPOSED ROOT N/A 10/18/2020 EXTRACTION, ERUPTED TOOTH OR EXPOSED ROOT (WRVU 0.62) performed by Shan Rivero MD at [facility] OSC PRO IMPACT TOOTH REM BONY W/COMP N/A 10/18/2020 SURGICAL EXTRACTIONS, REMOVAL OF IMPACTED TOOTH, COMPLETELY BONY WITH UNUSUAL SURGICAL COMPLICATIONS (WRVU 2.91) performed by Shan Rivero MD at [facility] OSC PRO IMPACT TOOTH REMOV COMP BONY N/A 10/18/2020 SURGICAL EXTRACTIONS, REMOVAL OF IMPACTED TOOTH, COMPLETELY BONY (WRVU 1.93) performed by Shan Rivero MD at [facility] OSC PRO REMOVAL ERUPTED TOOTH WITH ELEVATION OF MUCOPERIOSTEAL FLAP Bilateral 10/18/2020 SURGICAL EXTRACTIONS REQUIRING ELEVATION OF MUCOPERIOSTEAL FLAP AND REMOVAL OF BONE OR SECTION OF TOOTH (WRVU 1.09) performed by Shan Rivero MD at [facility] OSC PRO UNLISTED PROCEDURE NERVOUS SYSTEM Right 05/24/2022 EXPLORATION VENTRICULO-PERITONEAL SHUNT (WRVU 25.48) performed by Rhoda Jimenez MD at [facility] MAIN OR SHOULDER SURGERY ULNAR TUNNEL [...] 0.5 mg Tablet 1 tablet, Oral, NIGHTLY cephALEXin (KEFLEX) 500 mg, Oral, 3 TIMES DAILY cholecalciferol, Vitamin D3, 50 mcg (2,000 unit) [...] [Transparent Dressings] Itching Vancomycin Analogues Vancomycin Hcl Family History: Family [...] Value Range last 24 hrs Temperature Temp: 36 ??C (96.8 ??F) Temp: [36 ??C (96.8 ??F)] Heart Rate Heart Rate: 68 Heart Rate: [63-83] No data recorded Blood Pressure BP: 102/62 BP: (95-137)/(62-104) BP (Arterial Line): -- Respiratory Rate Resp: 16 Resp: [8-22] SpO2 SpO2: 92 % SpO2: [90 %-97 %] O2 Device O2 Device: None (Room air) Weight/BMI Weight: 72.6 kg (160 lb) Body mass index is 25.84 kg/m??. No intake or output data in the 24 hours ending 06/09/23 0630 NPO diet (Give Meds) Physical Exam: GEN: resting comfortably in bed, pleasant, conversant, NAD HEENT: normocephalic, atraumatic CHEST: comfortable work of breathing on RA CV: regular rate, well perfused ABD: soft, nondistended, tender in RUQ EXTR: moving all extremities spontaneously, mild edema NEURO: awake and alert, grossly intact, nonfocal, follows commands Data Reviewed: Labs: Recent Labs 06/08/23183606/08/231834 WBC 12.7* -- HGB 17.6* -- HCT 50.4* -- PLATELET 265 -- PT -- 11.7 INR -- 1.0 PTT -- 33 Recent Labs 06/08/231834 NA 138 K 4.0 CL 100 CO2 26 BUN 10 CREATININE 1.14 GLUCOSE 91 CALCIUM 9.8 MAGNESIUM 0.91 PHOS 3.4 Recent Labs 06/08/231834 PROT 7.8 ALBUMIN 4.6 BILITOT 0.7 ALKPHOS 109 AST 14 ALT 19 Recent Labs 06/08/23 1840 LACTATEVEN 2.0 No results for input(s): PHART, QRV6WSS, PO2ART, BAM1RCL in the last 72 hours. Studies: CT A/P 1. Fractured MERCHANDISE SHOPPER shunt catheter in the right anterior abdominal wall. 2. No acute intra-abdominal/pelvic infectious or inflammatory findings. Impression and Recommendations: Chapin Costa is a 52 y.o. 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 ACS will be available for assistance laparoscopically vs laparotomy for MERCHANDISE SHOPPER shunt exposure with Neurosurgery Recommendations: - Second panel w/ Dr. Allen and Dr. Bowens has been added - Please page them personally when ready intra-op Above recommendations discussed with primary team. All plans formulated in discussion with and directed by attending surgeon Dr. Allen. Thank you for this consult. If you have any questions, please page [phone]. Consult service will continue to follow along. Therese Rowe MD 06/09/2023 Acute Care Surgery Service p.[phone] I saw and evaluated the patient. I have independently reviewed the relevant laboratory and radiographic studies. I have edited the above note and agree with the details as written. My physical examination confirms the resident's findings. The assessment and plan were formulated in discussion with me at the time of the visit and I agree with them as documented. Justin Allen MD * Consult Note - Richard Valles MD - 06/08/2023 6:14 PM EDT [facility] NEUROSURGERY CONSULT NOTE Consult Requesting Service: ED Reason for consult: Abdominal pain- MERCHANDISE SHOPPER shunt failure? ASSESSMENT: Chapin Costa is a 52 y.o. 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 CT head demonstrating no acute findings or ventriculomegaly. Shunt series demonstrating fracture of the distal catheter within the right upper quadrant abdominal wall, confirmed on CT abdomen pelvis done OSH ED 2 days prior to presentation here. Patient is at his neurologic baseline on exam, though memory eventually slightly worse than normal for the past week. No fevers, chills, or other infectious symptoms, but by blood cell count slightly elevated to 12. PLAN/RECS: -Patient is tender over right lower quadrant, which appears to be remote from the fracture distal catheter. White blood cell count is elevated to 12. Recommend workup of abdominal pain per the ED including CT abdomen pelvis over read as no read is available from OSH ED scan. -Q4 hour neurochecks -Plan for nonurgent shunt revision -N.p.o. at midnight -Hold all AC/AP medications X Consult service will continue to follow patient. We're signing off. Recommendations above, page if further consultation required. Case will be discussed with Dr. Jimenez, neurosurgery attending. HISTORY OF PRESENT ILLNESS: Chapin Costa is a 52 y.o. 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 Jimenez in 05/24/2022, last seen in clinic for a Codman Hakim valve adjustment and his shunt was changed from 80 to 90 mm H2O in 09/2022, presented to the ED on 06/07 after progressive abdominal pain over multiple days with workup at [facility] ED including abdominal CT scan showing a fracture of the distalcatheter within the abdominal wall, directed to [facility] emergency department for further workup and care where he presented today, multiple days later. Patient's abdominal pain has been present for the past 4 to 5 days, slightly worsening over time. Not associated with headache, nausea, vomiting, change in vision, change in speech, change in hearing, weakness, or numbness. However, patient and his mother, present at bedside, states that his memory has been slightly worse for the past week. No recent fevers, chills, cough, pain with urination, wounds, infections, or recent trauma. PAST MEDICAL HISTORY: Past Medical History: Diagnosis [...] 4.06) performed by Shan Rivero MD at [facility] OSC PRO EXTRACTION, ERUPTED TOOTH OR EXPOSED ROOT N/A 10/18/2020 EXTRACTION, ERUPTED TOOTH OR EXPOSED ROOT (WRVU 0.62) performed by Shan Rivero MD at [facility] OSC PRO IMPACT TOOTH REM BONY W/COMP N/A 10/18/2020 SURGICAL EXTRACTIONS, REMOVAL OF IMPACTED TOOTH, COMPLETELY BONY WITH UNUSUAL SURGICAL COMPLICATIONS (WRVU 2.91) performed by Shan Rivero MD at [facility] OSC PRO IMPACT TOOTH REMOV COMP BONY N/A 10/18/2020 SURGICAL EXTRACTIONS, REMOVAL OF IMPACTED TOOTH, COMPLETELY BONY (WRVU 1.93) performed by Shan Rivero MD at [facility] OSC PRO REMOVAL ERUPTED TOOTH WITH ELEVATION OF MUCOPERIOSTEAL FLAP Bilateral 10/18/2020 SURGICAL EXTRACTIONS REQUIRING ELEVATION OF MUCOPERIOSTEAL FLAP AND REMOVAL OF BONE OR SECTION OF TOOTH (WRVU 1.09) performed by Shan Rivero MD at [facility] OSC PRO UNLISTED PROCEDURE NERVOUS SYSTEM Right 05/24/2022 EXPLORATION VENTRICULO-PERITONEAL SHUNT (WRVU 25.48) performed by Rhoda Jimenez MD at [facility] MAIN OR SHOULDER SURGERY ULNAR TUNNEL [...] tablet Take 10 mg by mouth daily. cephALEXin (Keflex) 500 mg capsule Take 1 capsule by mouth 3 times daily. 30 capsule 0 oxyCODONE (Roxicodone) 5 mg tablet Take 1 [...] Resource Strain: Not on file Food Insecurity: Not on file Transportation Needs: Not on file Physical Activity: Not on file Intimate Partner Violence: Not At Risk (08/21/2022) IPV Inpatient Questions Prevent Contact with Others: no Feels Threatened by Someone: no Feels Unsafe at Home: no Physical Signs of Abuse Present: no Housing Stability: Not on file FAMILY HISTORY: Family History Problem Relation Age of Onset Muscular Dystrophy Cousin REVIEW OF SYSTEMS: As above in HPI, otherwise non-contributory. VITAL SIGNS: Visit Vitals BP (!) 116/104 (BP Location (NBP): Left arm, Patient Position: Sitting) Pulse 83 Temp 36 ??C (96.8 ??F) (Temporal) Resp 16 Wt 72.6 kg (160 lb) SpO2 92% BMI 25.84 kg/m?? PHYSICAL EXAM: General: NAD HEENT: Normocephalic Pulmonary: Nonlabored breathing Neuro Exam: Wide awake, alert, oriented x4 Conversational, speech fluent, naming & repetition intact PERRL, disconjugate gaze (baseline) but EOMI, VFF grossly, FS, TML, shoulder shrug 5/5 No pronator drift MOTOR: RUE:5/5 LUE:5/5 RLE: 5/5 LLE: 5/5 Sensation grossly intact to light touch x4 FTN intact Scalp incision over shunt is clean dry and intact LABS: CBC: Lab Results Component Value Date/Time WBC 10.6 (H) 09/01/2022 11:20 AM WBC 10.6 (H) 09/01/2022 11:20 AM HGB 17.6 (H) 09/01/2022 11:20 AM PLATELET 200 09/01/2022 11:20 AM BMP: Lab Results Component Value Date/Time NA 138 08/25/2022 05:46 AM K 4.0 08/25/2022 05:46 AM CL 104 08/25/2022 05:46 AM CO2 21 (L) 08/25/2022 05:46 AM BUN 23 (H) 08/25/2022 05:46 AM CREATININE 1.21 08/25/2022 05:46 AM Coags: No results found for: INR, PT, PTT IMAGING: CT head: IMPRESSION Right frontal shunt tube appears generally unchanged in position. Right temporal craniotomy unchanged. Dilatation of the right temporal horn is stable when compared with 10/13/2022. Otherwise the ventricles are decompressed. No intracranial hemorrhage or mass is identified. Shunt series: IMPRESSION FINDINGS/IMPRESSION: Shunt catheter discontinuity/fracture at the segment projecting over the RIGHT upper abdomen. Clinical Documentation Improvement: There are no hospital problems to display for this patient. Richard Valles MD Neurosurgery Pager: [phone] Associated attestation - Rhoda Jimenez MD - 06/10/2023 11:03 AM EDT I have seen and examined the patient, providing miramontes components as outlined below. I have reviewed the resident???s note; my evaluation of the patient is below: This is a 52-year-old gentleman with history of congenital hydrocephalus, treated with right frontal ventriculoperitoneal shunt, who presents with several days of confusion, and abdominal pain. A CT of the chest abdomen pelvis demonstrated a fracture of the distal catheter in the abdominal wall. Hewas therefore transferred here for further evaluation and management. On exam, he is awake, alert, and oriented to self and location. His incisions all look well- healed without erythema or drainage. There is no fluid collection under the skin of the belly, the fracture is not readily palpable. We will admit him and plan on shunt exploration and revision today, if his infectious workup is negative. documented in this encounter Plan of Treatment Not on file documented as of this encounter Procedures Procedure Name Priority Date/Time Associated Diagnosis Comments URINALYSIS WITH REFLEX CULTURE Routine 06/10/2023 7:59 AM EDT HEMOGRAM Routine 06/10/2023 6:10 AM EDT DIFFERENTIAL, AUTOMATED Routine 06/10/2023 6:10 AM EDT CBC (WITH DIFF) Routine 06/10/2023 6:10 AM EDT BASIC METABOLIC PANEL Routine 06/10/2023 6:10 AM EDT XR SHUNT SERIES Routine 06/09/2023 9:28 PM EDT Replacement/Revision, Csf Shunt ([id number]) 06/09/2023 2:09 PM EDT shunt malfunction REVISION OR REPLACEMENT CSF SHUNT Routine 06/09/2023 11:49 AM EDT IMPLANTABLE DEVICES SCAN 06/09/2023 12:00 AM EDT REQUEST FOR 2ND READ CT ABDOMEN AND PELVIS STAT 06/08/2023 10:[address] HEAD WO CONTRAST (GENERIC) STAT 06/08/2023 6:53 PM EDT BLOOD CULTURE STAT 06/08/2023 6:51 PM EDT BLOOD GAS VENOUS POC Routine 06/08/2023 6:40 PM EDT HEMOGRAM STAT 06/08/2023 6:37 PM EDT DIFFERENTIAL, AUTOMATED STAT 06/08/2023 6:37 PM EDT TSH CASCADE STAT 06/08/2023 6:35 PM EDT BLOOD CULTURE STAT 06/08/2023 6:35 PM EDT HC PARTIAL THROMBOPLASTIN TIME STAT 06/08/2023 6:35 PM EDT PROTHROMBIN TIME STAT 06/08/2023 6:35 PM EDT CBC (WITH DIFF) STAT 06/08/2023 6:35 PM EDT PHOSPHORUS STAT 06/08/2023 6:35 PM EDT MAGNESIUM STAT 06/08/2023 6:35 PM EDT COMPREHENSIVE METABOLIC PANEL STAT 06/08/2023 6:35 PM EDT XR SHUNT SERIES STAT 06/08/2023 6:25 PM EDT documented in this encounter Results * (ABNORMAL) Urinalysis with reflex Culture (06/10/2023 7:59 AM EDT) Glucose, Urine Dipstick Negative Negative mg/dL [facility] Protein, Urine Dipstick Negative Negative mg/dL [facility] Bilirubin, Urine Dipstick Negative Negative mg/dL [facility] Comment: Clinical correlation required for positive Urine Bilirubin results as false positive may occur with some drugs and drug related products. If a false positive is suspected a serum total bilirubin should be considered if clinically indicated. Urobilinogen, Urine Dipstick Normal Normal mg/dL [facility] pH, Urn (dipstick) 5.5 5.0 - 8.0 [facility] Blood, Urine Dipstick Negative Negative mg/dL [facility] Ketone, Urine Dipstick Trace(A) Negative mg/dL [facility] Nitrite, Urine Dipstick Negative Negative [facility] Leukocytes, Urine Dipstick Negative Negative [facility] Appearance, Urine Dipstick Clear Clear [facility] Specific [place] Urine Automated 1.029 1.005 - 1.030 [facility] Color, Urine Dipstick Yellow Yellow [facility] Reflex to Culture No [facility] Clean Catch Urine 06/10/2023 7:59 AM EDT 06/10/2023 8:53 AM EDT Narrative Resulting Agency Comment Spec In Lab Rhoda Jimenez MD URINE ORDERABLES [facility] [place] [address] * (ABNORMAL) Differential, Automated (06/10/2023 6:10 AM EDT) Neutrophil % 85.9 % [facility] Neutrophil Absolute 14.58(H) 1.70 - 6.10 x10(3)/mc L [facility] Lymph % 10.8 % [facility] Lymphocytes Abs 1.8 0.9 - 3.2 x10(3)/mc L [facility] Monocyte % 2.7 % [facility] Monocyte Abs 0.4 0.3 - 0.9 x10(3)/mc L [facility] Eos % 0.0 % [facility] Eosinophils Abs 0.0 0.0 - 0.4 x10(3)/mc L [facility] Basophil % 0.2 % [facility] Baso Absolute 0.0 0.0 - 0.1 x10(3)/mc L [facility] Immature Gran % 0.40 % [facility] Comment: Immature granulocytes(IG's)percentage and absolute count will include metamyelocytes, myelocytes, and promyelocytes. Blood smears from CBCs yielding IG's will be scanned manually for concordance. If this scan disagrees with the automated IG or if promyelocytes are noted, a manual differential will be performed. Immature Gran Absolute 0.06(H) 0.00 - 0.04 x10(3)/ L [facility] Blood 06/10/2023 6:10 AM EDT 06/10/2023 6:22 AM EDT Narrative Resulting Agency Comment Spec In Lab Richard Valles MD HEMATOLOGY ORDERABLE S [facility] [place] [address] * (ABNORMAL) Hemogram (06/10/2023 6:10 AM EDT) White Blood Cell 17.0(H) 4.0 - 9.5 x10(3)/[facility] Red Blood Cell 5.83(H) 4.58 - 5.54 x10(6)/[facility] Hemoglobin 17.3(H) 13.7 - 16.5 g/dL [facility] Hematocrit 49.1(H) 40.5 - 48.5 % [facility] Mean Cell Volume 84.2 82.9 - 93.1 [facility] Mean Cell Hemoglobin 29.7 27.5 - 32.1 pg [facility] Mean Cell Hemoglobin Concentration 35.2 32.0 - 35.7 g/dL [facility] Platelet 272 145 - 357 x10(3)/[facility] RDW Standard Deviation 41.0 36.0 - 45.0 [facility] RDW coefficient of variation 13.5 11.4 - 13.8 % [facility] Mean Platelet Volume 8.9 7.6 - 12.9 [facility] NRBC% auto 0.0 % [facility] NRBC Absolute 0.000 0.000 - 0.000 x10(3)/ L [facility] Blood 06/10/2023 6:10 AM EDT 06/10/2023 6:22 AM EDT Narrative Resulting Agency Comment Spec In Lab Richard Valles MD HEMATOLOGY ORDERABLE S [facility] [place] [address] * (ABNORMAL) Basic Metabolic Panel (non-fasting) (06/10/2023 6:10 AM EDT) Glucose 130 65 - 199 mg/dL [facility] Comment:Diabetes: >=200 mg/d L plus symptoms Blood Urea Nitrogen 17 10 - 20 mg/dL [facility] Comment:result rechecked-nb Creatinine 1.22 0.80 - 1.50 mg/dL [facility] Sodium 135 135 - 145 mmol/L [facility] Potassium 4.3 3.5 - 5.0 mmol/L [facility] Comment: Please note: ??Patients with WBC >100,000 may have falsely elevated Potassium levels. ??For accurate Potassium quantification in these patients send serum separator tube (gold top) for subsequent determinations. ??Contact the Clinical Chemistry Laboratory if there are any questions. Chloride 102 98 - 107 mmol/L [facility] Carbon Dioxide 21(L) 22 - 31 mmol/L [facility] Anion Gap 12 5 - 15 mmol/L [facility] Calcium 9.7 8.5 - 10.5 mg/dL [facility] Est Glomerular Filtration Rate 72 >=60 mL/min/1. 73 m?? [facility] Comment: This patient's estimated GFR [...] and symptoms in addition to eGFR. Blood 06/10/2023 6:10 AM EDT 06/10/2023 6:22 AM EDT Narrative Resulting Agency Comment Spec In Lab Deng Hawk MD CHEMISTRY ORDERABLES [facility] [place] [address] * XR Shunt Series (06/09/2023 9:28 PM EDT) Anatomical Region Laterality Modality N/A Digital Radiogra phy Impressions 06/10/2023 10:11 AM EDT 1. ??Ventriculoperitoneal shunt catheter with no radiographic evidence of discontinuity of the catheter tubing. Thank you for letting us participate in the care of this patient. ??If you are a health care provider and have any questions regarding this report, please contact the number below. ??For patients who have questions please contact the health career services representative that requested your imaging first. ? Narrative 06/10/2023 10:11 AM EDT EXAMINATION: XR SHUNT SERIES CLINICAL HISTORY: postop VPS distal catheter repair (as entered by ordering provider in the order requisition) TECHNIQUE: AP and lateral views of the skull. ??AP and lateral views the chest. ??AP and lateral views of the abdomen. COMPARISON: CT of the head June 08, 2023. ??Shunt series June 08, 2023. FINDINGS: There is a right frontal approach ventriculoperitoneal shunt catheter. ??There is an expected lucent component around the shunt valve. ??The catheter tubing courses along the soft tissues of the right neck and over the anterior right chest wall and anterior abdominal wall. ??The patient catheter enters the abdominal cavity at the mid abdominal level and terminates with its tip over the upper central abdomen. ??Surgical clips project over the abdominal cavity. Similar to the prior study, there is an orphaned tubing along the anterior chest wall. No dilated loops of bowel in the visualized portions of the abdomen. Visualized lung tony are clear. Procedure Note Aria Tsai MD - 06/10/2023 EXAMINATION: XR SHUNT SERIES CLINICAL HISTORY: postop VPS distal catheter repair (as entered byordering provider in the order requisition) TECHNIQUE: AP and lateral views of the skull. AP and lateral views the chest. APand lateral views of the abdomen. COMPARISON: CT of the head June 08, 2023. Shunt series June 08, 2023. FINDINGS: There is a right frontal approach ventriculoperitoneal shunt catheter.There is an expected lucent component around the shunt valve. The cathetertubing courses along the soft tissues of the right neck and over the anteriorright chest wall and anterior abdominal wall. The patient catheter enters the abdominal cavity at the mid abdominal level and terminates with its tipover the upper central abdomen. Surgical clips project over the abdominalcavity. Similar to the prior study, there is an orphaned tubing along the anteriorchest wall. No dilated loops of bowel in the visualized portions of the abdomen. Visualized lung tony are clear. IMPRESSION 1. Ventriculoperitoneal shunt catheter with no radiographic evidence of discontinuity of the catheter tubing. Thank you for letting us participate in the care of this patient. If youare a health care provider and have any questions regarding this report,please contact the number below. For patients who have questions please contactthe health career services representative that requested your imaging first. Rhoda Jimenez MD IMG DX ORDERABLES * SCAN DOC: IMPLANTABLE DEVICES (06/09/2023 12:00 AM EDT) Narrative 06/09/2023 12:00 AM EDT Ordered by an unspecified provider. Scanning Provider MEDIA MGR SCAN EXT O RDR/RSLT * Request For 2nd Read CT Abdomen & Pelvis (06/08/2023 10:31 PM EDT) Anatomical Region Laterality Modality Abdomen, Pelvis SO Impressions 06/09/2023 7:44 AM EDT 1. ??Fractured MERCHANDISE SHOPPER shunt catheter in the subcutaneous tissues of right anterior abdominal wall. 2. ??No acute intra-abdominal/intrapelvic findings. Preliminary report signed by: [...] who have questions please contact the health career services representative that requested your imaging first. ? Electronically signed by: Kierra Newsome MD, [facility] ([phone]), at 06/09/2023 7:44 AM Narrative 06/09/2023 7:44 AM EDT EXAMINATION: REQUEST FOR 2ND READ CT ABDOMEN AND PELVIS CLINICAL HISTORY: abdominal pain; Sending Institution [facility]; Date of exam [id number]; I believe a reinterpretation of this exam may alter care of Patient. Yes TECHNIQUE: Reinterpretation of CT abdomen pelvis without intravenous contrast performed at [facility] on 06/06/2023 at 1350 hours. COMPARISON: Shunt study 06/08/2023 FINDINGS: The absence of intravenous contrast limits the evaluation of solid viscera and vasculature. Lower chest: Punctate calcified granuloma in the right lower lobe. Liver: Normal. Bile ducts: Nondilated. Gallbladder: Surgically absent. Pancreas: Normal. Spleen: Normal. Adrenals: Normal. Kidneys/ureters: Normal. Urinary Bladder: Normal. Vasculature: No aneurysm. Lymph nodes: No enlarged lymph nodes. Bowel: Nondilated, no inflammatory changes. Peritoneum and mesentery: The distal tip of the ventricular peritoneal shunt terminates in the left upper quadrant of the abdomen. A metallic clip is present in the left omentum. Abdominal wall: MERCHANDISE SHOPPER shunt is fractured in the right upper abdominal wall, (series 4 image 94). MERCHANDISE SHOPPER shunt catheter enters the peritoneal space through the right rectus abdominal muscle. Bilateral small fat-containing inguinal hernias. Reproductive organs: Normal. Osseous structures: No suspicious lesions. Mild degenerative changes in the lumbar spine. Procedure Note Karen Newsome MD - 06/09/2023 EXAMINATION: REQUEST FOR 2ND READ CT ABDOMEN AND PELVIS CLINICAL HISTORY: abdominal pain; Sending Institution [facility]; Date of exam [id number]; I believe a reinterpretation of this exam may alter care ofPatient. Yes TECHNIQUE: Reinterpretation of CT abdomen pelvis without intravenous contrastperformed at [facility] on 06/06/[facility]23 at 1350 hours. COMPARISON: Shunt study 06/08/2023 FINDINGS: The absence of intravenous contrast limits the evaluation of solid visceraand vasculature. Lower chest: Punctate calcified granuloma in the right lower lobe. Liver: Normal. Bile ducts: Nondilated. Gallbladder: Surgically absent. Pancreas: Normal. Spleen: Normal. Adrenals: Normal. Kidneys/ureters: Normal. Urinary Bladder: Normal. Vasculature: No aneurysm. Lymph nodes: No enlarged lymph nodes. Bowel: Nondilated, no inflammatory changes. Peritoneum and mesentery: The distal tip of the ventricular peritonealshunt terminates in the left upper quadrant of the abdomen. A metallic clip ispresent in the left omentum. Abdominal wall: MERCHANDISE SHOPPER shunt is fractured in the right upper abdominal wall,(series 4 image 94). MERCHANDISE SHOPPER shunt catheter enters the peritoneal space through theright rectus abdominal muscle. Bilateral small fat-containing inguinalhernias. Reproductive organs: Normal. Osseous structures: No suspicious lesions. Mild degenerative changes inthe lumbar spine. IMPRESSION 1. Fractured MERCHANDISE SHOPPER shunt catheter in the subcutaneous tissues of rightanterior abdominal wall. 2. No acute intra-abdominal/intrapelvic findings. Preliminary report signed by: Homer Flowers at 06/09/2023 6:52 AM I have personally reviewed the image(s) and the resident's interpretationand agree with the findings, Kierra Newsome MD at 06/09/2023 7:44 AM Thank you for letting us participate in the care of this patient. If youare a health care provider and have any questions regarding this report,please contact the number below. For patients who have questions please contactthe health career services representative that requested your imaging first. Electronically signed by: Kierra Newsome MD, [facility]([phone]), at 06/09/2023 7:44 AM Derek Ni MD IMG OUTSIDE INTER PRETATION ORDERABLES * CT Head wo Contrast (Generic) (06/08/2023 6:53 PM EDT) Anatomical Region Laterality Modality Head Computed Tomogra phy Impressions 06/08/2023 6:59 PM EDT Right frontal shunt tube appears generally unchanged in position. Right temporal craniotomy unchanged. Dilatation of the right temporal horn is stable when compared with 10/13/2022. Otherwise the ventricles are decompressed. No intracranial hemorrhage or mass is identified. Thank you for letting us participate in the care of this patient. ??If you are a health care provider and have any questions regarding this report, please contact the number below. ??For patients who have questions please contact the health career services representative that requested your imaging first. ? Narrative 06/08/2023 6:59 PM EDT EXAMINATION: CT HEAD WO CONTRAST (GENERIC) CLINICAL HISTORY: shunt malfunction TECHNIQUE: CT Head was performed without contrast COMPARISON: CTA of the brain 10/13/2022 and 09/08/2022 FINDINGS: The calvarium demonstrates a right frontal gala hole through which catheter passes, to cross the midline at the level of foramen of Gutiérrez. 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 No intracranial hemorrhage is identified. A right temporal craniotomy is noted. Dilatation of the right temporal horn appears unchanged from 10/13/2022. Otherwise the ventricles show no cyst significant enlargement and in fact there are small similar in appearance to the study of 10/13/2022. No intracranial hemorrhage is identified. No large vascular territory infarct is seen. 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 No intracranial hemorrhage is identified. A right temporal craniotomy is noted. Dilatation of the right temporalhorn appears unchanged from 10/13/2022. Otherwise the ventricles show no cyst significant enlargement and in factthere are small similar in appearance to the study of 10/13/2022. Nointracranial hemorrhage is identified. No large vascular territory infarct is seen. IMPRESSION Right frontal shunt tube appears generally unchanged in position. Right temporal craniotomy unchanged. Dilatation of the right temporal horn is stable when compared with10/13/2022. Otherwise the ventricles are decompressed. No intracranial hemorrhage ormass is identified. Thank you for letting us participate in the care of this patient. If youare a health care provider and have any questions regarding this report,please contact the number below. For patients who have questions please contactthe health career services representative that requested your imaging first. Dyana Neumann APRN IMG CT ORDERABLES * Blood culture (06/08/2023 6:51 PM EDT) Blood Culture No growth at 5 days. [facility] Blood STRUCTURE OF RIGHT HAND / Unknown 06/08/2023 6:51 PM EDT 06/08/2023 7:51 PM EDT Narrative Resulting Agency Comment Spec In Lab Dyana Padillasotonaa LIZA MICROBIOLOGY - BL OOD ORDERABLES [facility] [place] [address] * (ABNORMAL) BLOOD GAS 2 VENOUS (06/08/2023 6:40 PM EDT) pH, Venous 7.40 7.32 - 7.42 [facility] PCO2, Venous 41 41 - 51 mmHg [facility] PO2, Venous 38 25 - 40 mmHg [facility] Bicarbonate, Venous 25.2 mmol/L [facility] Base Excess, Venous 0.5 mmol/L [facility] Hgb Blood Gas 17.8(H) 13.7 - 16.5 g/dL [facility] Oxyhemoglobin, Venous 69.9 % [facility] Carboxyhemoglob in, Venous 0.6 % [facility] Comment: Nonsmokers: 0.5-1.5% COHB Smokers: Variable, but usually less than 10% Toxic: 20-30% COHB Lethal: Greater than 60% COHB Methemoglobin, Venous 0.4 <=1.5 % [facility] Na Whole Blood 140 135 - 145 mmol/L [facility] K Whole Blood 4.3 3.5 - 5.0 mmol/L [facility] Comment: Please note: Patients with WBC >100,000 may have falsely elevated Potassium levels. Contact the Clinical Chemistry Laboratory if there are any questions. ICa Whole Blood 1.18 1.15 - 1.33 mmol/L [facility] Comment: Note: ??Total bilirubin higher than 20 mg/dL may lead to falsely low ionized calcium. CL Whole Blood 101 98 - 107 mmol/L [facility] Gluc Whole Bld 86 65 - 199 mg/dL [facility] Comment:Diabetes: >=200 mg/d L plus symptoms Lactate WB 2.0 0.5 - 2.2 mmol/L [facility] Blood Gas Source Venous [facility] Blood 06/08/2023 6:40 PM EDT 06/08/2023 6:40 PM EDT Emergency Dept POINT OF CARE TEST ORDERABLES [facility] [place] [address] * (ABNORMAL) Differential, Automated (06/08/2023 6:37 PM EDT) Neutrophil % 68.4 % [facility] Neutrophil Absolute 8.71(H) 1.70 - 6.10 x10(3)/mc L [facility] Lymph % 24.5 % [facility] Lymphocytes Abs 3.1 0.9 - 3.2 x10(3)/mc L [facility] Monocyte % 5.3 % [facility] Monocyte Abs 0.7 0.3 - 0.9 x10(3)/mc L [facility] Eos % 0.8 % [facility] Eosinophils Abs 0.1 0.0 - 0.4 x10(3)/mc L [facility] Basophil % 0.5 % [facility] Baso Absolute 0.1 0.0 - 0.1 x10(3)/mc L [facility] Immature Gran % 0.50 % [facility] Comment: Immature granulocytes(IG's)percentage and absolute count will include metamyelocytes, myelocytes, and promyelocytes. Blood smears from CBCs yielding IG's will be scanned manually for concordance. If this scan disagrees with the automated IG or if promyelocytes are noted, a manual differential will be performed. Immature Gran Absolute 0.06(H) 0.00 - 0.04 x10(3)/ L [facility] Blood 06/08/2023 6:37 PM EDT 06/08/2023 6:46 PM EDT Narrative Resulting Agency Comment Spec In Lab Dyana Laurie Nel [facility] HEMATOLOGY ORDERA BLES Performing Organization Address City/State/[facility] Co de Phone Number [facility] [place] [address] * (ABNORMAL) Hemogram (06/08/2023 6:37 PM EDT) White Blood Cell 12.7(H) 4.0 - 9.5 x10(3)/[facility] Red Blood Cell 5.90(H) 4.58 - 5.54 x10(6)/[facility] Hemoglobin 17.6(H) 13.7 - 16.5 g/dL [facility] Hematocrit 50.4(H) 40.5 - 48.5 % [facility] Mean Cell Volume 85.4 82.9 - 93.1 fL [facility] Mean Cell Hemoglobin 29.8 27.5 - 32.1 pg [facility] Mean Cell Hemoglobin Concentration 34.9 32.0 - 35.7 g/dL [facility] Platelet 265 145 - 357 x10(3)/[facility] RDW Standard Deviation 42.1 36.0 - 45.0 [facility] RDW coefficient of variation 13.6 11.4 - 13.8 % [facility] Mean Platelet Volume 8.8 7.6 - 12.9 [facility] NRBC% auto 0.0 % [facility] NRBC Absolute 0.000 0.000 - 0.000 x10(3)/ L [facility] Blood 06/08/2023 6:37 PM EDT 06/08/2023 6:46 PM EDT Narrative Resulting Agency Comment Spec In Lab Dyana Neumann APRN HEMATOLOGY ORDERA BLES Performing Organization Address [facility] Co de Phone Number [facility] [place] [address] * APTT (06/08/2023 6:35 PM EDT) Partial Thromboplastin Time 33 25 - 37 sec [facility] Comment: The PTT is NOT appropriate for heparin monitoring. Use the Anti-Xa level for heparin monitoring (HEP UFH) or LMWH monitoring (HEP LMW). A PTT less than 37 seconds generally indicates adequate hemostasis. Blood 06/08/2023 6:35 PM EDT 06/08/2023 6:46 PM EDT Narrative Resulting Agency Comment Spec In Lab Dyana Neumann APRN HEMATOLOGY ORDERA BLES Performing Organization Address [facility] de Phone Number [facility] [place] [address] * Prothrombin Time (06/08/2023 6:35 PM EDT) Prothrombin Time 11.7 9.4 - 12.5 sec [facility] International Normalization Ratio 1.0 [facility] Comment: An INR <2.0 indicates [...] be appropriate depending on clinical circumstances. Blood 06/08/2023 6:35 PM EDT 06/08/2023 6:46 PM EDT Narrative Resulting Agency Comment Spec In Lab Dyana Neumann APRN HEMATOLOGY ORDERA BLES Performing Organization Address [facility] Co de Phone Number [facility] [place] [address] * TSH [place] (06/08/2023 6:35 PM EDT) Thyroid Stimulating Hormone 2.77 0.27 - 4.20 mcIU/mL [facility] Comment: Reference Interval (mcIU/mL): Females: ??First Trimester: 0.23-3.88 ??Second Trimester: 0.22-3.90 ??Third Trimester: 0.44-4.66 Blood 06/08/2023 6:35 PM EDT 06/08/2023 6:46 PM EDT Narrative Resulting Agency Comment Spec In Lab Dyana Laurie Neumann FILLER RO[employer] ATTENDANT CHEMISTRY ORDERAB LES Performing Organization Address City/[facility] Co de Phone Number [facility] [place] [address] * Phosphorus (06/08/2023 6:35 PM EDT) Phosphorus 3.4 2.5 - 4.5 mg/dL [facility] Blood 06/08/2023 6:35 PM EDT 06/08/2023 6:46 PM EDT Narrative Resulting Agency Comment Spec In Lab Dyana Laurie Neumann FILL[employer] RO[employer] ATTENDANT CHEMISTRY ORDERAB LES Performing Organization Address City/[facility]/ZIP Co de Phone Number [facility] [place] [address] * Magnesium (06/08/2023 6:35 PM EDT) Magnesium 0.91 0.69 - 1.07 mmol/L [facility] Blood 06/08/2023 6:35 PM EDT 06/08/2023 6:46 PM EDT Narrative Resulting Agency Comment Spec In Lab Dyana Laurie Neumann FILL[employer] RO[employer] ATTENDANT CHEMISTRY ORDERAB LES Performing Organization Address City/[facility]/ZIP Co de Phone Number [facility] [place] [address] * Blood culture (06/08/2023 6:35 PM EDT) Blood Culture No growth at 5 days. [facility] Blood ANTECUBITAL REGION STRUCTURE / Unknown 06/08/2023 6:35 PM EDT 06/08/2023 7:52 PM EDT Narrative Resulting Agency Comment Spec In Lab Dyana Neumann APRN MICROBIOLOGY - BL OOD ORDERABLES [facility] [place] [address] * Comprehensive metabolic panel (non-fasting) (06/08/2023 6:35 PM EDT) Glucose 91 65 - 199 mg/dL [facility] Comment:Diabetes: >=200 mg/d L plus symptoms Blood Urea Nitrogen 10 10 - 20 mg/dL [facility] Creatinine 1.14 0.80 - 1.50 mg/dL [facility] Sodium 138 135 - 145 mmol/L [facility] Potassium 4.0 3.5 - 5.0 mmol/L [facility] Comment: Please note: ??Patients with WBC >100,000 may have falsely elevated Potassium levels. ??For accurate Potassium quantification in these patients send serum separator tube (gold top) for subsequent determinations. ??Contact the Clinical Chemistry Laboratory if there are any questions. Chloride 100 98 - 107 mmol/L [facility] Carbon Dioxide 26 22 - 31 mmol/L [facility] Anion Gap 12 5 - 15 mmol/L [facility] Calcium 9.8 8.5 - 10.5 mg/dL [facility] Protein, Total 7.8 6.1 - 8.0 g/dL [facility] Albumin 4.6 3.2 - 5.2 g/dL [facility] Aspartate Aminotransferase 14 0 - 39 unit/L [facility] Alanine Aminotransferase 19 0 - 55 unit/L [facility] Alkaline Phosphatase 109 40 - 130 unit/L [facility] Bilirubin, Total 0.7 0.2 - 1.3 mg/dL [facility] Est Glomerular Filtration Rate 78 >=60 mL/min/1. 73 m?? [facility] Comment: This patient's estimated GFR [...] and symptoms in addition to eGFR. Blood 06/08/2023 6:35 PM EDT 06/08/2023 6:46 PM EDT Narrative Resulting Agency Comment Spec In Lab Dyana Neumann FILLER RO[employer] ATTENDANT CHEMISTRY ORDERAB LES [facility] [place] [address] * XR Shunt Series (06/08/2023 6:25 PM EDT) Anatomical Region Laterality Modality N/A Digital Radiogra phy Impressions 06/08/2023 6:47 PM EDT FINDINGS/IMPRESSION: Shunt catheter discontinuity/fracture at the segment projecting over the RIGHT upper abdomen. Thank you for letting us participate in the care of this patient. ??If you are a health care provider and have any questions regarding this report, please contact the number below. ??For patients who have questions please contact the health career services representative that requested your imaging first. ? Electronically signed by: Santana [facility]Baptiste [facility] ([phone]), at 06/08/2023 6:47 PM Narrative 06/08/2023 6:47 PM EDT EXAMINATION: XR SHUNT SERIES CLINICAL HISTORY: shunt malfunction TECHNIQUE: Frontal and lateral views of the skull, chest, abdomen COMPARISON: Shunt series 06/06/2023 Procedure Note Santana Jean-Baptiste MD - 06/08/2023 EXAMINATION: XR SHUNT SERIES CLINICAL HISTORY: shunt malfunction TECHNIQUE: Frontal and lateral views of the skull, chest, abdomen COMPARISON: Shunt series 06/06/2023 IMPRESSION FINDINGS/IMPRESSION: Shunt catheter discontinuity/fracture at the segment projecting over theRIGHT upper abdomen. Thank you for letting us participate in the care of this patient. If youare a health care provider and have any questions regarding this report,please contact the number below. For patients who have questions please contactthe health career services representative that requested your imaging first. Electronically signed by: Santana Jean[facility]Baptiste MD[facility]([phone]), at 06/08/2023 6:47 PM Dyana Laurie Neumann APRN IMG DX ORDERABLES documented in this encounter Visit Diagnoses Diagnosis Shunt malfunction- Primary Mechanical complication due to other implant and internal device, not elsewhere classified Shunt malfunction, initial encounter documented in this encounter Admitting Diagnoses Diagnosis Shunt malfunction Mechanical complication due to other implant and internal device, not elsewhere classified documented in this encounter Administered Medications Inactive Administered Medications - up to 3 most recent administrations Medication Order MAR Action Action Date Dose Rate Site acetaminophen (Tylenol) (32.02 mg/mL) oral liquid 1,000 mg 1,000 mg, Oral, EVERY 6 HOURS PRN, Starting on Thu06/09/23 at 0831, Until Thu06/10/23 at 1541, Pain, mild pain (1-3), Maximum dose of acetaminophen is 4,000 mg from all sources in 24 hours. When ordered for pain, acetaminophen should be given even when other ordered pain medications are indicated., Routine acetaminophen (Tylenol) suppository 650 mg 650 mg, Rectal, EVERY 6 HOURS PRN, Starting on Thu06/09/23 at 0831, Until Thu06/10/23 at 1541, Pain, mild pain (1-3), Maximum dose of acetaminophen is 4,000 mg from all sources in 24 hours. When ordered for pain, acetaminophen should be given even when other ordered pain medications are indicated., Routine acetaminophen (Tylenol) tablet 975 mg 975 mg, Oral, EVERY 6 HOURS PRN, Starting on Thu06/09/23 at 0831, Until Thu06/10/23 at 1541, Pain, mild pain (1-3), Maximum dose of acetaminophen is 4,000 mg from all sources in 24 hours. When ordered for pain, acetaminophen should be given even when other ordered pain medications are indicated., Routine ARIPiprazole (Abilify) tablet 10 mg 10 mg, Oral, DAILY, First dose on Thu06/09/23 at 1600, Until Discontinued, Routine Given 06/10/2023 8:31 AM EDT 10 mg Given 06/09/2023 6:10 PM EDT 10 mg atorvastatin (Lipitor) tablet 10 mg 10 mg, Oral, EVERY EVENING, First dose on Thu06/09/23 at 1700, Until Discontinued, Routine Given 06/09/2023 5:38 PM EDT 10 mg diazePAM (Valium) tablet 2 mg 2 mg, Oral, ONCE, 1 dose, On Thu06/10/23 at 0200, Routine Given 06/10/2023 1:34 AM EDT 2 mg hydrOXYzine (Atarax) tablet 10 mg 10 mg, Oral, 3 TIMES DAILY PRN, Starting on Thu06/09/23 at 1534, Until Thu06/10/23 at 1541, Itching, Routine levothyroxine (Synthroid) tablet 25 mcg 25 mcg, Oral, DAILY, First dose on Thu06/09/23 at 1715, Until Discontinued, Routine Given 06/10/2023 5:24 AM EDT 25 mcg lurasidone (Latuda) tablet 40 mg 40 mg, Oral, EVERY EVENING, First dose on Thu06/09/23 at 1700, Until Discontinued, Administer with a meal containing at least 350 calories, Routine metoprolol succinate XL (Toprol-XL) tablet 25 mg 25 mg, Oral, DAILY, First dose on Thu06/09/23 at 0930, Until Discontinued, DO NOT CRUSH OR OPEN, Routine Given 06/10/2023 8:31 AM EDT 25 mg Given 06/09/2023 8:44 AM EDT 25 mg ondansetron (pf) (Zofran) (2 mg/mL) injection 4 mg 4 mg, Intravenous, EVERY 8 HOURS PRN, Starting on Thu06/09/23 at 0831, Until Thu06/10/23 at 1541, Nausea, Vomiting, May repeat times one in 30 minutes if ineffective. If multiple antiemetics are ordered, use ondansetron first, prochlorperazine second, and metoclopramide third. ondansetron ODT (Zofran-ODT) disintegrating tablet 4 mg 4 mg, Oral, EVERY 8 HOURS PRN, Starting on Thu06/09/23 at 0831, Until Thu06/10/23 at 1541, Nausea, May repeat in 30 minutes if ineffective. If multiple antiemetics are ordered, use ondansetron first, prochlorperazine second, and metaclopramide third., Routine pantoprazole EC (Protonix) tablet 40 mg 40 mg, Oral, DAILY, First dose on Thu06/09/23 at 0930, Until Discontinued Given 06/10/2023 8:31 AM EDT 40 mg Given 06/09/2023 8:44 AM EDT 40 mg sertraline (Zoloft) tablet 100 mg 100 mg, Oral, DAILY, First dose on Thu06/09/23 at 1600, Until Discontinued, Routine Given 06/10/2023 8:31 AM EDT 100 mg Given 06/09/2023 5:38 PM EDT 100 mg sodium chloride 0.9 % (flush) (BD PosiFlush Normal Saline 0.9) flush 5 mL 5 mL, Intravenous, 2 TIMES DAILY, First dose on Thu06/09/23 at 0930, Until Discontinued, Recovery (Recovery-Hospital Unit), Routine Given 06/10/2023 9:00 AM EDT 5 mLs Given 06/09/2023 8:58 PM EDT 5 mLs Given 06/09/2023 8:47 AM EDT 5 mLs sodium chloride 0.9% infusion 1,000 mL, at 100 mL/hr, Intravenous, CONTINUOUS, Starting on Thu06/09/23 at 0930, Until Thu06/09/23 at 1538, Recovery (Recovery-Hospital Unit) New Bag 06/09/2023 8:47 AM EDT 1,000 mLs 100 mL/hr topiramate (Topamax) tablet 25 mg 25 mg, Oral, DAILY, First dose on Thu06/09/23 at 0930, Until Discontinued, DO NOT SPLIT, CRUSH OR OPEN, Routine Given 06/10/2023 8:31 AM EDT 25 mg Given 06/09/2023 8:44 AM EDT 25 mg documented in this encounter Active and Recently Administered Medications Times are shown in EDT. Scheduled Medication Order 06/08/2023 06/09/2023 06/10/2023 ARIPiprazole (Abilify) tablet 10 mg 10 mg, Oral, DAILY, First dose on Thu06/09/23 at 1600, Until Discontinued, Routine 1810 (Given - Provider: El Denney RN) 0831 (Given - Provider: Elke Laughlin RN) atorvastatin (Lipitor) tablet 10 mg 10 mg, Oral, EVERY EVENING, First dose on Thu06/09/23 at 1700, Until Discontinued, Routine 1738 (Given - Provider: El Denney RN) diazePAM (Valium) tablet 2 mg (COMPLETED) 2 mg, Oral, ONCE, 1 dose, On Thu06/10/23 at 0200, Routine 0134 (Given - Provid er: Megan Lemons RN) levothyroxine (Synthroid) tablet 25 mcg 25 mcg, Oral, DAILY, First dose on Thu06/09/23 at 1715, Until Discontinued, Routine 1737 (Not Given - Provider: El Denney RN - Reason: Patient/family refused) 0524 (Given - Provider: Megan Lemons RN) lurasidone (Latuda) tablet 40 mg 40 mg, Oral, EVERY EVENING, First dose on Thu06/09/23 at 1700, Until Discontinued, Administer with a meal containing at least 350 calories, Routine 1737 (Not Given - Provider: El Denney RN - Reason: Patient/family refused - Comment: pt states he does not take this anymore) metoprolol succinate XL (Toprol-XL) tablet 25 mg 25 mg, Oral, DAILY, First dose on Thu06/09/23 at 0930, Until Discontinued, DO NOT CRUSH OR OPEN, Routine 0844 (Given - Provider: El Denney RN)1409 (APR Hold - Provider: Admin Adt - Reason: Transfer to a Procedural area)1708 (APR Unhold - Provider: Admin Adt) 0831 (Given - Provider: Elke Laughlin, EDWARD) pantoprazole EC (Protonix) tablet 40 mg 40 mg, Oral, DAILY, First dose on Thu06/09/23 at 0930, Until Discontinued 0844 (Given - Provider: El Denney RN)1409 (APR Hold - Provider: Admin Adt - Reason: Transfer to a Procedural area)1708 ([facility] Unhold - Provider: Admin Adt) 0831 (Given - Provider: Elke Laughlin, EDWARD) sertraline (Zoloft) tablet 100 mg 100 mg, Oral, DAILY, First dose on Thu06/09/23 at 1600, Until Discontinued, Routine 1738 (Given - Provider: El Denney RN) 0831 (Given - Provider: Elke Laughlin, EDWARD) sodium chloride 0.9 % (flush) (BD PosiFlush Normal Saline 0.9) flush 5 mL 5 mL, Intravenous, 2 TIMES DAILY, First dose on Thu06/09/23 at 0930, Until Discontinued, Recovery (Recovery-Hospital Unit), Routine 0847 (Given - Provider: El Denney RN)2057 (Given - Provider: Megan Lemons RN) 0900 (Given - Provider: Elke Laughlin, EDWARD) topiramate (Topamax) tablet 25 mg 25 mg, Oral, DAILY, First dose on Thu06/09/23 at 0930, Until Discontinued, DO NOT SPLIT, CRUSH OR OPEN, Routine 0844 (Given - Provider: El Denney RN)1409 (APR Hold - Provider: Admin Adt - Reason: Transfer to a Procedural area)1708 ([facility] Unhold - Provider: Admin Adt) 0831 (Given - Provider: Elke Laughlin RN) Continuous Medication Order 06/08/2023 06/09/2023 06/10/2023 sodium chloride 0.9% infusion (CANCELED) 1,000 mL, at 100 mL/hr, Intravenous, CONTINUOUS, Starting on Thu06/09/23 at 0930, Until Thu06/09/23 at 1538, Recovery (Recovery-Hospital Unit) 0847 (New Bag - Provider: Jodie Denney RN) PRN Medication Order 06/08/2023 06/09/2023 06/10/2023 acetaminophen (Tylenol) (32.02 mg/mL) oral liquid 1,000 mg(Linked Group 1) 1,000 mg, Oral, EVERY 6 HOURS PRN, Starting on Thu06/09/23 at 0831, Until Thu06/10/23 at 1541, Pain, mild pain (1-3), Maximum dose of acetaminophen is 4,000 mg from all sources in 24 hours. When ordered for pain, acetaminophen should be given even when other ordered pain medications are indicated., Routine 1409 ([facility] Hold - Provider: Admin Adt - Reason: Transfer to a Procedural area)1708 ([facility] Unhold - Provider: Admin Adt) acetaminophen (Tylenol) suppository 650 mg(Linked Group 1) 650 mg, Rectal, EVERY 6 HOURS PRN, Starting on Thu06/09/23 at 0831, Until Thu06/10/23 at 1541, Pain, mild pain (1-3), Maximum dose of acetaminophen is 4,000 mg from all sources in 24 hours. When ordered for pain, acetaminophen should be given even when other ordered pain medications are indicated., Routine 1409 ([facility] Hold - Provider: Admin Adt - Reason: Transfer to a Procedural area)1708 ([facility] Unhold - Provider: Admin Adt) acetaminophen (Tylenol) tablet 975 mg(Linked Group 1) 975 mg, Oral, EVERY 6 HOURS PRN, Starting on Thu06/09/23 at 0831, Until Thu06/10/23 at 1541, Pain, mild pain (1-3), Maximum dose of acetaminophen is 4,000 mg from all sources in 24 hours. When ordered for pain, acetaminophen should be given even when other ordered pain medications are indicated., Routine 1409 ([facility] Hold - Provider: Admin Adt - Reason: Transfer to a Procedural area)1708 ([facility] Unhold - Provider: Admin Adt) BUpivacaine-EPINEPHrine (Marcaine-epiNEPHrine) 0.25 %-1:200,000 injection (CANCELED) PRN, Starting on Thu06/09/23 at 1520, Until Thu06/10/23 at 1541, Intra-Operative (Intra-Procedure), Routine 1520 (Given - Provider: Rhoda Jimenez MD) hydrALAZINE (Apresoline) (20 mg/mL) injection 10 mg 10 mg, Intravenous, EVERY 2 HOURS PRN, Starting on Thu06/09/23 at 0831, Until Thu06/10/23 at 1541, High Blood Pressure, For systolic blood pressure (SBP) greater than 160 mmHg. May repeat once in 15 minutes if blood pressure remains greater than 160 mmHg. Use if labetaloL ineffective after 2 doses, Routine 1409 ([facility] Hold - Provider: Admin Adt - Reason: Transfer to a Procedural area)1708 ([facility] Unhold - Provider: Admin Adt) hydrOXYzine (Atarax) tablet 10 mg 10 mg, Oral, 3 TIMES DAILY PRN, Starting on Thu06/09/23 at 1534, Until Thu06/10/23 at 1541, Itching, Routine labetaloL (Normodyne) (5 mg/mL) injection solution 20 mg 20 mg, Intravenous, EVERY 2 HOURS PRN, Starting on Thu06/09/23 at 0831, Until Thu06/10/23 at 1541, High Blood Pressure, Use for systolic blood pressure (SBP) greater than 160 mmHg. May repeat once in 15 minutes if blood pressure remains greater than 160 mmHg., Routine 1409 ([facility] Hold - Provider: Admin Adt - Reason: Transfer to a Procedural area)1708 ([facility] Unhold - Provider: Admin Adt) lidocaine (Xylocaine) 1% (10 mg/mL) injection 3 mg 3 mg (0.3 mL), Subcutaneous, ONCE PRN, 1 dose, Starting on Thu06/09/23 at 0831, Until Thu06/10/23 at 1541, for discomfort with PIV insertion, Recovery (Recovery-Hospital Unit), Routine ondansetron (pf) (Zofran) (2 mg/mL) injection 4 mg(Linked Group 2) 4 mg, Intravenous, EVERY 8 HOURS PRN, Starting on Thu06/09/23 at 0831, Until Thu06/10/23 at 1541, Nausea, Vomiting, May repeat times one in 30 minutes if ineffective. If multiple antiemetics are ordered, use ondansetron first, prochlorperazine second, and metoclopramide third. 1409 ([facility] Hold - Provider: Admin Adt - Reason: Transfer to a Procedural area)1708 ([facility] Unhold - Provider: Admin Adt) ondansetron ODT (Zofran-ODT) disintegrating tablet 4 mg(Linked Group 2) 4 mg, Oral, EVERY 8 HOURS PRN, Starting on Thu06/09/23 at 0831, Until Thu06/10/23 at 1541, Nausea, May repeat in 30 minutes if ineffective. If multiple antiemetics are ordered, use ondansetron first, prochlorperazine second, and metaclopramide third., Routine 1409 ([facility] Hold - Provider: Admin Adt - Reason: Transfer to a Procedural area)1708 ([facility] Unhold - Provider: Admin Adt) oxyCODONE (Roxicodone) tablet 5 mg 5 mg, Oral, EVERY 6 HOURS PRN, Starting on Thu06/09/23 at 0831, Until Thu06/10/23 at 1541, Pain, Routine 1409 ([facility] Hold - Provider: Admin Adt - Reason: Transfer to a Procedural area)1708 ([facility] Unhold - Provider: Admin Adt) sodium chloride 0.9 % (flush) (BD PosiFlush Normal Saline 0.9) flush 5-20 mL 5-20 mL, Intravenous, EVERY 1 MIN PRN, Starting on Thu06/09/23 at 0831, Until Thu06/10/23 at 1541, flush, Flush pertains to all indwelling lines. Flush per protocol found in the job aid using the link provided on this medication record., Recovery (Recovery-Hospital Unit), Routine Linked Groups Order Group 1: acetaminophen (Tylenol) (32.02 mg/mL) oral liquid 1,000 mgJump to med 1,000 mg, Oral, EVERY 6 HOURS PRN, Starting on Thu06/09/23 at 0831, Until Thu06/10/23 at 1541, Pain, mild pain (1-3), Maximum dose of acetaminophen is 4,000 mg from all sources in 24 hours. When ordered for pain, acetaminophen should be given even when other ordered pain medications are indicated., Routine Or acetaminophen (Tylenol) tablet 975 mgJump to med 975 mg, Oral, EVERY 6 HOURS PRN, Starting on Thu06/09/23 at 0831, Until Thu06/10/23 at 1541, Pain, mild pain (1-3), Maximum dose of acetaminophen is 4,000 mg from all sources in 24 hours. When ordered for pain, acetaminophen should be given even when other ordered pain medications are indicated., Routine Or acetaminophen (Tylenol) suppository 650 mgJump to med 650 mg, Rectal, EVERY 6 HOURS PRN, Starting on Thu06/09/23 at 0831, Until Thu06/10/23 at 1541, Pain, mild pain (1-3), Maximum dose of acetaminophen is 4,000 mg from all sources in 24 hours. When ordered for pain, acetaminophen should be given even when other ordered pain medications are indicated., Routine Group 2: ondansetron ODT (Zofran-ODT) disintegrating tablet 4 mgJump to med 4 mg, Oral, EVERY 8 HOURS PRN, Starting on Thu06/09/23 at 0831, Until Thu06/10/23 at 1541, Nausea, May repeat in 30 minutes if ineffective. If multiple antiemetics are ordered, use ondansetron first, prochlorperazine second, and metaclopramide third., Routine Or ondansetron (pf) (Zofran) (2 mg/mL) injection 4 mgJump to med 4 mg, Intravenous, EVERY 8 HOURS PRN, Starting on Thu06/09/23 at 0831, Until Thu06/10/23 at 1541, Nausea, Vomiting, May repeat times one in 30 minutes if ineffective. If multiple antiemetics are ordered, use ondansetron first, prochlorperazine second, and metoclopramide third. documented in this encounter Care Teams Network Systems Administrator Relationship Specialty Start Date End Date Peter Lebron PA [address] [place] [address] PCP - General Internal Medicine 6/29/23 documented as of this encounter
--- OUTSIDE RECORDS SUMMARY | 2024-02-29 15:47 | XMS_ITS | Encounter Summary ---
Author Organization [facility] [place] [address] Care Team Providers Care Core Sticker Name Role Phone Peter Lebron Primary Care Provider Encounter Details Date Type Department Care Team (Late st Contact Info) Description 08/27/2022 Telephone [place] [address] [facility] [place] [address] Social History Tobacco Use Types Packs/Day Years Used Date Smoking Tobacco: Never Smokeless Tobacco: Never Alcohol Use Standard Drinks/Week Comments No 0 (1 standard drink = 0.6 oz pur e alcohol) [facility] Inpatient Questions Answer Date Recorded Does Anyone Try to Keep You From Having Contact with Others or Doing Things Outside Your Home? no 08/21/2022 Feels Threatened by Someone no 07/25 Feels Unsafe at Home or Work/School no 08/21/2022 Physical Signs of Abuse Present no 08/21/2022 Sex and Gender Information Value Date Recorded Sex Assigned at Male 10/11/2020 1:38 PM EDT Gender Identity Male 01/18/2020 8:12 PM EST Sexual Orientation Straight 10/11/2020 1: 38 PM EDT documented as of this encounter Miscellaneous Notes * Telephone Encounter - Bell Kuhn 08/27/2022 8:52 AM EDT ----- Message from Socorro Maier APRN sent at 08/25/2022 3:08 PM EDT ----- Hi, Ever Costa was discharged home today. He has an appointment scheduled for 09/08 which he may keep. Thank you, Socorro documented in this encounter Plan of Treatment Not on file documented as of this encounter Visit Diagnoses Not on filedocumented in this encounter Care Teams Core Sticker Relationship Specialty Start Date End Date Peter Lebron PA [address] [place] [address] PCP - General Internal Medicine 08/21/22 documented as of this encounter
--- OUTSIDE RECORDS SUMMARY | 2024-02-29 15:47 | XMS_ITS | Encounter Summary ---
Author Organization [facility] Address [facility] [place] [address] Care Team Providers Care Blanker Press Operator Name Role Phone Peter Lebron Primary Care Provider [phone] Encounter Details Date Type Department Care Team (Late st Contact Info) Description 06/08/2023 10:35 PM EDT Ancillary Procedure Radiology Library at [facility] [place] [address] Social History Tobacco Use Types Packs/Day Years Used Date Smoking Tobacco: Never Smokeless Tobacco: Never Alcohol Use Standard Drinks/Week Comments No 0 (1 standard drink = 0.6 oz pur e alcohol) [facility] Utilities Answer Date Recorded In the past 12 months has e [employer], gas, oil, or water Y'all threatened to shut off services in your [...] slept in a alf (including now)? No 06/09/2023 DH IPV Inpatient [...] Procedure Name Priority Date/Time Associated Diagnosis Comments REQUEST FOR 2ND READ CT ABDOMEN AND PELVIS STAT 06/08/2023 10:31 PM EDT documented in this encounter Results * Request For 2nd Read CT Abdomen & Pelvis (06/08/2023 10:31 PM EDT) Anatomical Region Laterality Modality Abdomen, Pelvis SO Impressions 06/09/2023 7:44 AM EDT 1. ??Fractured POT LINER shunt catheter in the subcutaneous tissues of [...] that requested your imaging first. ? Narrative 06/09/2023 7:44 AM EDT EXAMINATION: REQUEST FOR 2ND READ CT ABDOMEN AND PELVIS CLINICAL HISTORY: abdominal pain; Sending Institution [facility]; Date of exam [id number]; I believe a reinterpretation of this exam may alter care of Patient. Yes TECHNIQUE: Reinterpretation of CT abdomen pelvis without intravenous contrast performed at [facility] on 06/06/2023 at 1350 hours. COMPARISON: [...] present in the left omentum. Abdominal wall: POT LINER shunt is fractured in the right upper abdominal wall, (series 4 image 94). POT LINER shunt catheter enters the peritoneal space through the right rectus abdominal muscle. Bilateral small fat-containing inguinal hernias. Reproductive organs: Normal. Osseous structures: No suspicious lesions. Mild degenerative changes in the lumbar spine. Procedure Note Karen Newsome MD - 06/09/2023 EXAMINATION: REQUEST FOR 2ND READ CT ABDOMEN AND PELVIS CLINICAL HISTORY: abdominal pain; Sending Institution [facility]; Date of exam [id number]; I believe a reinterpretation of this exam may alter care ofPatient. Yes TECHNIQUE: Reinterpretation of CT abdomen pelvis without intravenous contrastperformed at [facility] on 06/06/2023 at 1350 hours. COMPARISON: [...] ispresent in the left omentum. Abdominal wall: POT LINER shunt is fractured in the right upper abdominal wall,(series 4 image 94). POT LINER shunt catheter enters the peritoneal space through theright rectus abdominal muscle. Bilateral small fat-containing inguinalhernias. Reproductive organs: Normal. Osseous structures: No suspicious lesions. Mild degenerative changes inthe lumbar spine. IMPRESSION 1. Fractured POT LINER shunt catheter in the subcutaneous tissues of [...] sanitary technician that requested your imaging first. Derek Ni MD IMG OUTSIDE INTER PRETATION ORDERABLES documented in this encounter Visit Diagnoses Not on filedocumented in this encounter Care Teams Blanker Press Operator Relationship Specialty Start Date End Date Peter Lebron PA [address] [place] [id number] PCP - General Internal Medicine 08/21/22 documented as of this encounter
--- OUTSIDE RECORDS SUMMARY | 2024-02-29 15:47 | XMS_ITS | Encounter Summary ---
[facility] [place] [address] Care Team Providers Care Manager Hvac Name Role Phone Peter Lebron Primary Care Provider [phone] Encounter Details Date Type Department Care Team (Latest Contact Info) Description 10/13/2022 4:15 PM EDT - 10/13/2022 11:59 PM EDT Hospital Encounter XRay at [address] [place] [address] Rhoda Jimenez MD [facility] [address] Chronic intractable headache, unspecified headache type Discharge Disposition: Home Social History Tobacco Use Types Packs/Day Years Used Date Smoking Tobacco: Never Smokeless Tobacco: Never Alcohol Use Standard Drinks/Week Comments No 0 (1 standard drink = 0.6 oz pur e alcohol) [facility] Inpatient Questions Answer Date Recorded Does [...] 5,000 mcg by mouth daily. 05/24/2022 09/24/2023 cephALEXin (Keflex) 500 mg capsule Take 1 capsule by mouth 3 times daily. 30 capsule 06/10/2022 06/10/2023 oxyCODONE (Roxicodone) 5 mg tablet Take 1 [...] evening. 12/01/2019 07/02/2023 rizatriptan (MAXALT) 10 mg TabletIndications:Chron ic migraine without aura without status migrainosus, not intractable Take 1 tablet by mouth as needed for Migraine. 10 tablet 09/02/2019 09/24/2023 topiramate (TOPAMAX) 25 mg TabletIndications:Chron ic migraine without aura without status migrainosus, not intractable Take 1 tablet by mouth 2 times daily. 60 tablet 5 02/10/2019 09/24/2023 documented as of this encounter Plan of Treatment Not on file documented as of this encounter Procedures Procedure Name Priority Date/Time Associated Diagnosis Comments XR SKULL Routine 10/13/2022 4:27 PM EDT Chronic intractable headache, unspecified headache type documented in this encounter Results * XR Skull (Generic) (10/13/2022 4:27 PM EDT) Anatomical Region Laterality Modality N/A Digital Radiogra phy Impressions 10/14/2022 8:26 AM EDT FINDINGS/IMPRESSION: Codman Hakim programmable shunt valve is set to 90 mm H2O. The extensive shunt tubing included in the [id number] is intact without kink. Patient is edentulous. Preserved craniocervical junction alignment. Thank you for letting us participate in the care of this patient. ??If you are a health care provider and have any questions regarding this report, please contact the number below. ??For patients who have questions please contact the health med care manager that requested your imaging first. ? Electronically signed by: Emerita Bernstein MD, [facility] ([phone]), at 10/14/2022 8:26 AM Narrative 10/14/2022 8:26 AM EDT EXAMINATION: XR SKULL (GENERIC) CLINICAL HISTORY: check VACUUM TESTER CANS shunt valve setting - this is at occipital cervical junction (please message pito santoyo or page [phone] for XR to be verified before letting patient leave) TECHNIQUE: Oblique lateral view of the posterior skull base COMPARISON: CT October 13, 2022 and skull radiographs September 12, 2022 Procedure Note Emerita Bernstein MD - 10/14/2022 EXAMINATION: XR SKULL (GENERIC) CLINICAL HISTORY: check VACUUM TESTER CANS shunt valve setting - this is at occipitalcervical junction (please message pito santoyo or page [phone] for XR to be verifiedbefore letting patient leave) TECHNIQUE: Oblique lateral view of the posterior skull base COMPARISON: CT October 13, 2022 and skull radiographs September 12, 2022 IMPRESSION FINDINGS/IMPRESSION: Codman Hakim programmable shunt valve is set to 90 mm H2O. The extensiveshunt tubing included in the [id number] is intact without kink. Patient is edentulous. Preserved craniocervical junction alignment. Thank you for letting us participate in the care of this patient. If youare a health care provider and have any questions regarding this report,please contact the number below. For patients who have questions please contactthe health med care manager that requested your imaging first. Electronically signed by: Emerita Bernstein MD, [facility]([phone]), at 10/14/2022 8:26 AM Rhoda Jimenez MD IMG DX ORDERABLES documented in this encounter Visit Diagnoses Diagnosis Chronic intractable headache, unspecified headache type documented in this encounter Care Teams Manager Hvac Relationship Specialty Start Date End Date Peter Lebron PA [address] [place] [address] PCP - General Internal Medicine 08/21/22 documented as of this encounter
--- OUTSIDE RECORDS SUMMARY | 2024-02-29 15:47 | XMS_ITS | Encounter Summary ---
Author Organization [facility] [place] [address] Care Team Providers Care Human Resources Clerk Name Role Phone Peter Lebron Primary Care Provider [phone] Reason for Referral * Diagnostic Test (Routine) - Closed Specialty Diagnoses / Procedures Referred By Contac t Referred To Contact Radiology Diagnoses Persistent headaches S/P NATURAL SCIENCE CURATOR shunt Procedures CT Head wo Contrast (Generic) Cl Atkins PA [facility] [place] [address] [facility] [place] [address] Referral ID Status Reason Start Date Expiration Date V isits Requested Visits Authorized [id number] Closed Specialty Service Requested 09/10/2022 03/13/2024 1 1 Encounter Details Date Type Department Care Team (Late st Contact Info) Description 09/10/2022 Orders [place] [address] Cl Atkins PA [facility] [place] [address] Persistent headaches; S/P NATURAL SCIENCE CURATOR shunt Social History Tobacco Use Types Packs/Day Years Used Date Smoking Tobacco: Never Smokeless Tobacco: Never Alcohol Use Standard Drinks/Week Comments No 0 (1 standard drink = 0.6 oz pur e alcohol) IPV Inpatient Questions Answer Date Recorded Does [...] on file documented as of this encounter Results * CT Head wo Contrast (Generic) (10/13/2022 2:10 PM EDT) Anatomical Region Laterality Modality Head Computed Tomogra phy Impressions 10/14/2022 9:17 AM EDT Stable decompressed ventricular system and mildly dilated anterior right temporal horn.. I have personally reviewed the image(s) and the resident's interpretation and agree with the findings, Carley Delgado MD at 10/14/2022 9:17 AM Thank you for letting us participate in the care of this patient. ??If you are a health care provider and have any questions regarding this report, please contact the number below. ??For patients who have questions please contact the health floor care specialist that requested your imaging first. ? Electronically signed by: Carley Delgado MD, [facility] ([phone]), at 10/14/2022 9:17 AM Narrative 10/14/2022 9:17 AM EDT EXAMINATION: CT HEAD WO CONTRAST (GENERIC) CLINICAL HISTORY: Hydrocephalus TECHNIQUE: CT head performed without intravenous contrast administration. COMPARISON: CT head 09/08/2022 FINDINGS: Right frontal ventriculoperitoneal shunt catheter terminating to the left of midline, unchanged. Slitlike lateral and third ventricles and mildly dilated right anterior temporal horn, unchanged. Hypoattenuation at the periphery of the right caudate head, unchanged. Right temporal craniectomy and minimal subjacent encephalomalacia, unchanged. Left frontal and right parietal gala holes and trace encephalomalacia along the course of prior right parieto-occipital catheter, stable. No acute intracranial hemorrhage, midline shift, mass effect or extra-axial collection. Extracranial shunt catheter tubing is intact. No aggressive osseous lesions. Trace right mastoid fluid, visible paranasal sinuses, mastoid air cells and middle ear cavities are otherwise clear. Procedure Note Carley Delgado MD - 10/14/2022 EXAMINATION: CT HEAD WO CONTRAST (GENERIC) CLINICAL HISTORY: Hydrocephalus TECHNIQUE: CT head performed without intravenous contrast administration. COMPARISON: CT head 09/08/2022 FINDINGS: Right frontal ventriculoperitoneal shunt catheter terminating to the leftof midline, unchanged. Slitlike lateral and third ventricles and mildlydilated right anterior temporal horn, unchanged. Hypoattenuation at the peripheryof the right caudate head, unchanged. Right temporal craniectomy and minimal subjacent encephalomalacia,unchanged. Left frontal and right parietal gala holes and trace encephalomalaciaalong the course of prior right parieto-occipital catheter, stable. No acute intracranial hemorrhage, midline shift, mass effect orextra-axial collection. Extracranial shunt catheter tubing is intact. No aggressiveosseous lesions. Trace right mastoid fluid, visible paranasal sinuses, mastoid aircells and middle ear cavities are otherwise clear. IMPRESSION Stable decompressed ventricular system and mildly dilated anterior right temporal horn.. I have personally reviewed the image(s) and the resident's interpretationand agree with the findings, Carley Delgado MD at 10/14/2022 9:17 AM Thank you for letting us participate in the care of this patient. If youare a health care provider and have any questions regarding this report,please contact the number below. For patients who have questions please contactthe health floor care specialist that requested your imaging first. Rhoda Jimenez MD IMG CT ORDERABLES documented in this encounter Visit Diagnoses Diagnosis Persistent headaches Headache S/P NATURAL SCIENCE CURATOR shunt Presence of cerebrospinal fluid drainage device Persistent headaches Headache S/P NATURAL SCIENCE CURATOR shunt Presence of cerebrospinal fluid drainage device documented in this encounter Care Teams Human Resources Clerk Relationship Specialty Start Date End Date Peter Lebron PA [address] [facility] [address] [place] [address] PCP - General Internal Medicine 08/21/22 documented as of this encounter
--- OUTSIDE RECORDS SUMMARY | 2024-02-29 15:47 | XMS_ITS | Encounter Summary ---
Author Organization [facility] Address [facility] [place] [address] Care Team Providers Care Data Coder Operator Name Role Phone Peter Lebron Primary Care Provider Encounter Details Date Type Department Care Team (Late st Contact Info) Description 10/13/2022 3:20 PM EDT [place] [address] Pito Atkins PA [facility] [place] [address] Chronic intractable headache, unspecified headache type Social History Tobacco Use Types Packs/Day Years Used Date Smoking Tobacco: Never Smokeless Tobacco: Never Alcohol Use Standard Drinks/Week Comments No 0 (1 standard drink = 0.6 oz pur e alcohol) [facility] Inpatient Questions Answer Date Recorded Does Anyone [...] Sign Reading Time Taken Comments Blood Pressure 133/83 10/13/2022 3:20 PM EDT Pulse 73 10/13/2022 3:20 PM EDT Temperature 36.5 ??C (97.7 ??F) 10/13/2022 3:20 PM ED T Respiratory Rate 17 10/13/2022 3:20 PM EDT Oxygen Saturation 100% 10/13/2022 3:20 PM EDT Inhaled Oxygen Concentration - - Weight 95.1 kg (209 lb 10.5 oz) 10/13/2022 3:20 PM EDT Height 167.6 cm (5' 5.98) 10/13/2022 3:20 PM ED T Body Mass Index 33.86 10/13/2022 3:20 PM EDT documented in this encounter Progress Notes * Pito Atkins PA - 10/13/2022 3:20 PM EDT Name: Chpain Costa : 1970 PCP: MARVA Gordon REF: Irma Gates Date of Service: 10/13/2022 CHIEF COMPLAINT: headache Chapin Costa presents with complaints of chronic intractable headache. He is s/p VPS revision May 2022. There are no radiographic features of shunt malfunction currently. He notes that headaches are worse in the afternoons and worsens when he stands up. We recognized that this may be indicative of over drainage and discussed making a minor adjustment to his shunt. His Codman Hakim valve is currently set to 80 mm H2O where he has been for many years. He previously did not tolerate an adjustment to 100 in 2017 though his intolerance could have been coincidental as he was already in intractable pain at the time of the adjustment. I explained that I could not guarantee any symptom impro vement with an adjustment and there was a chance his headache could worsen. He elected to proceed with adjustment and his shunt was changed to 90 mm H2O. Pito Atkins PA-C, MS Physician Hotel Valet Attendant [place] [address] documented in this encounter Procedure Notes * Pito Atkins PA - 10/13/2022 3:20 PM EDT Reprogramming of Programmable CSF Shunt R occipital Codman Hakim Programmable valve identified. Valve adjusted with the Codman VPV Junior Underwriter Unit. Pressure selected: 90 mmH2O Adjustment verified with object oriented programmer long beep and display ADJUSTMENT COMPLETE after x1 attempt. Pito Atkins PA-C documented in this encounter Plan of Treatment Not on file documented as of this encounter Results * XR Skull (Generic) (10/13/2022 4:27 PM EDT) Anatomical Region Laterality Modality N/A Digital Radiogra phy Impressions 10/14/2022 8:26 AM EDT FINDINGS/IMPRESSION: Codman Hakim programmable shunt valve is set to 90 mm H2O. The extensive shunt tubing included in the ukoyb-ob-alyb is intact without kink. Patient is edentulous. Preserved craniocervical junction alignment. Thank you for letting us participate in the care of this patient. ??If you are a health care provider and have any questions regarding this report, please contact the number below. ??For patients who have questions please contact the health child care center assistant director that requested your imaging first. ? Electronically signed by: Emerita Bernstein MD, [facility] ([phone]), at 10/14/2022 8:26 AM Narrative 10/14/2022 8:26 AM EDT EXAMINATION: XR SKULL (GENERIC) CLINICAL HISTORY: check STAND IN shunt valve setting - this is at occipital cervical junction (please message pito atkins or page [phone] for XR to be verified before letting patient leave) TECHNIQUE: Oblique lateral view of the posterior skull base COMPARISON: CT October 13, 2022 and skull radiographs September 12, 2022 Procedure Note Emerita Bernstein MD - 10/14/2022 EXAMINATION: XR SKULL (GENERIC) CLINICAL HISTORY: check STAND IN shunt valve setting - this is at occipitalcervical junction (please message pito atkins or page [phone] for XR to be verifiedbefore letting patient leave) TECHNIQUE: Oblique lateral view of the posterior skull base COMPARISON: CT October 13, 2022 and skull radiographs September 12, 2022 IMPRESSION FINDINGS/IMPRESSION: Codman Hakim programmable shunt valve is set to 90 mm H2O. The extensiveshunt tubing included in the iecgc-dh-qptr is intact without kink. Patient is edentulous. Preserved craniocervical junction alignment. Thank you for letting us participate in the care of this patient. If youare a health care provider and have any questions regarding this report,please contact the number below. For patients who have questions please contactthe health child care center assistant director that requested your imaging first. Electronically signed by: Emerita Bernstein MD, [facility]([phone]), at 10/14/2022 8:26 AM Rhoda Jimenez MD IMG DX ORDERABLES documented in this encounter Visit Diagnoses Diagnosis Chronic intractable headache, unspecified headache type Chronic intractable headache, unspecified headache type documented in this encounter Care Teams Data Coder Operator Relationship Specialty Start Date End Date Peter Lebron PA [address] [place] [address] PCP - General Internal Medicine 08/21/22 documented as of this encounter
--- OUTSIDE RECORDS SUMMARY | 2024-02-29 15:47 | XMS_ITS | Encounter Summary ---
Author Organization [facility] [place] [address] Care Team Providers Care Digital Media Sales Consultant Name Role Phone Peter Lebron Primary Care Provider Encounter Details Date Type Department Care Team (Late st Contact Info) Description 09/12/2022 10:35 PM EDT Ancillary Procedure Radiology Library at [facility] [place] [address] Peter Lebron PA [address] [place] [phone] Social History Tobacco Use Types Packs/Day Years Used Date Smoking Tobacco: Never Smokeless Tobacco: Never Alcohol Use Standard Drinks/Week Comments No 0 (1 standard drink = 0.6 oz pur e alcohol) [facility] Inpatient Questions Answer Date Recorded Does [...] Associated Diagnosis Comments FILM LIBRARY STORAGE ONLY DX SKELETAL SURVEY Routine 09/12/2022 10:33 PM EDT documented in this encounter Results * Film Library- Storage Only DX skeletal survey (09/12/2022 10:33 PM EDT) Narrative ANTONIO - 09/12/2022 10:33 PM EDT This exam is auto-finalizing. It's purpose is for storage only. Peter DURHAM IMZelda FILM LIBRARY ORD ERABLES [place], [place] documented in this encounter Visit Diagnoses Not on filedocumented in this encounter Care Teams Digital Media Sales Consultant Relationship Specialty Start Date End Date Peter Lebron PA [address] [place] [address] PCP - General Internal Medicine 08/21/22 documented as of this encounter
--- OUTSIDE RECORDS SUMMARY | 2024-02-29 15:47 | XMS_ITS | Encounter Summary ---
[place] [address] Care Team Providers Care Legal Receptionist Name Role Phone Peter Lebron Primary Care Provider Reason for Visit * Auth/Cert (Routine) Specialty Diagnoses / Procedures Referred By Mansi t Referred To Contact Diagnoses Shunt malfunction Shunt malfunction, initial encounter Rhoda Jimenez MD [facility] [place] [address] [facility] Referral ID Status Reason Start Date Expiration Date Visits Re quested Visits Authorized [id number] 1 1 Encounter Details Date Type Department Care Team (Late st Contact Info) Description 06/09/2023 2:12 PM EDT Anesthesia Event [place] [address] Madison Davis MD [facility] ANESTHESIOLOGY [place] [address] Peter Hoffman MD [facility] [place]HESIOLOG[place] [address] Anesthesia Record Procedure Summary Procedure Name Responsible Anesthesiologist Anesthesia Start Time Anesthesia Stop Time REVISION OR REPLACEMENT CSF SHUNT (WRVU 11.43) (Right) Madison Davis MD 06/09/23 1412 06/09/23 1548 Events Date Time Event Comment 06/09/2023 1412 AN Verify 1412 Start 1413 An Start Data 1421 An Induction 1425 An Intubation 1427 Anesthesia Ready 1536 Extubation/LMA Out 1540 an stop data 1548 Recovery or ICU Handoff Candi ent care was transferred to the destination unit staff after review of the patient's medical history, current anesthetic/surgical status and plan, according to the Provider Handoff Checklist. 1548 Stop 06/17/2023 1503 Meds Name Total IV Lidocaine 50 mg Propofol 330 mg Rocuronium 50 mg PHENYLephrine 160 mcg Ondansetron 4 mg Dexamethasone 8 mg propofol INF 228.69 mg PHENYLephrine INF 360 mcg sugammadex 200 mg dexmedeTOMIDine 8 mcg ceFAZolin 2 g acetaminophen IV 1,000 mg lactated ringers 700 mL * Agents Name O2 * Blood No blood administrations on file. Lines, Drains, and Airways Type Details Placement Removal Incision 05/24/22; 0939; Righ t; occipital region; 09/24/23; 0330 05/24/22 0939 by Madison Howell, EDWARD 09/24/23 0330 by Ellie Riddle RN PIV 06/08/23; 1835; hfyb-key-mjfjtb catheter system; 18 gauge; median cubital vein (antecubital fossa), left; Anatomical Landmarks; ML; distraction, tolerated well, appears comfortable; removed per policy/procedure; 06/10/23; 0100 06/08/23 1835 by Kathleen Ortega LPN 06/10/23 0100 by Leighton Boateng LNA ETT Mask Ventilation: Ad junct (2); ETT Type: Cuffed, Oral; ETT Size: 7.5 mm; Shaw Blade: 2; Notes: Asleep, Pre-O2, Stylette; Attempts: 1; Laryngoscopy Grade: 1; ETT Placement Verified By: Capnometry, Visual, Auscultation; Secured at Teeth: 23 cm; Inserted by: Sebastián Weston; Removal Date: 06/09/23; Removal Time: 15306/09/23 1425 by Socorro Weston CRNA 06/09/23 1536 by Socorro Weston CRNA NG/OG Tube 06/09/23; 1429; orog astric; 18 Fr; mouth; 06/09/23; 1528 06/09/23 1429 by Socorro Weston CRNA 06/09/23 1528 by Socorro Weston CRNA PIV 06/09/23; 1438; 18 g auge; great saphenous vein (medial side of leg), right; K. Enrico; 06/09/23; 1611 06/09/23 1438 by Socorro Weston CRNA 06/09/23 1611 by Gwendolyn Peralta RN Incision 06/09/23; 1456; Righ t; abdomen; 09/24/23; 0330 06/09/23 1456 by Shivani Kelly RN 09/24/23 0330 by Ellie Riddle RN documented in this encounter Social History Tobacco Use Types Packs/Day Years Used Date Smoking Tobacco: Never Smokeless Tobacco: Never Alcohol Use Standard Drinks/Week Comments No 0 (1 standard drink = 0.6 oz pur e alcohol) [facility] Utilities Answer Date Recorded In the past 12 months has th e electric, gas, oil, or water [employer] threatened to shut off services in your [...] OR Notes * Anesthesia Postprocedure Evaluation - Madison Davis MD - 06/09/2023 5:00 PM EDT Department of Anesthesiology Post-procedure Note Patient: Chapin Costa Procedure Summary Date: 06/09/23 Room / Location: [address] MAIN OR Anesthesia Start: 2 Anesthesia Stop: 1547 Procedure: REVISION OR REPLACEMENT CSF SHUNT (VU 11.43) (Right) Diagnosis: (shunt malfunction) Surgeons: Rhoda Jimenez MD Responsible Provider: Madison Davis MD Anesthesia Type: general ASA Status: 4 - Emergent All Anesthesia Providers: Anesthesiologist: Madison Davis MD INTERNET MARKETING ANALYST: Socorro Weston CRNA Vitals Value Taken Time BP 98/77 06/09/23 1645 Temp 36.4 ??C (97.5 ??F) 06/09/23 1645 Pulse 72 06/09/23 1645 Resp 19 06/09/23 1645 SpO2 92 % 06/09/23 1645 Pain Level 2 06/09/23 1645 Patient Location: PACU/[facility] Level of Consciousness: Conscious but Sleepy Pain Management: Satisfactory Analgesia PONV: None Cardiovascular Status: At Baseline and Hemodynamically Stable Respiratory Status: Stable Respiratory Status and Supplemental O2 (NC or FM) Postoperative Fluid Status: Intravascular EUvolemia Possible Anesthetic Complications: NONE apparent at time of evaluation Final Primary Anesthesia Type: General (The anesthetic type performed was the same as planned.) Comments: MADISON DAVIS MD * Anesthesia Preprocedure Evaluation - Madison Davis MD - 06/09/2023 12:22 PM EDT Pre-Anesthesia Evaluation for: Chapin Costa a 52 y.o. male. Procedure(s): REVISION OR REPLACEMENT CSF SHUNT (WRVU 11.43) LAPAROSCOPY, DIAGNOSTIC, ABDOMEN (WRVU 5.14) Patient Active Problem List Diagnosis Date Noted *Shunt malfunction 06/09/2023 Congenital hydrocephalus 05/24/2022 Hydrocephalus 03/08/2020 Seizures 03/23/2019 Cervicalgia 01/22/2017 Headache 01/15/2017 Persistent headaches 01/14/2017 S/P BUILDING WRECKER shunt 01/12/2017 Past Medical History: Diagnosis Date [...] 4.06) performed by Shan Rivero MD at [facility] OSC PRO EXTRACTION, ERUPTED TOOTH OR EXPOSED ROOT N/A 10/18/2020 EXTRACTION, ERUPTED TOOTH OR EXPOSED ROOT (WRVU 0.62) performed by Shan Rivero MD at [facility] OSC PRO IMPACT TOOTH REM BONY W/COMP N/A 10/18/2020 SURGICAL EXTRACTIONS, REMOVAL OF IMPACTED TOOTH, COMPLETELY BONY WITH UNUSUAL SURGICAL COMPLICATIONS (WRVU 2.91) performed by Sahn Rivero MD at [facility] OSC PRO IMPACT TOOTH REMOV COMP BONY N/A 10/18/2020 SURGICAL EXTRACTIONS, REMOVAL OF IMPACTED TOOTH, COMPLETELY BONY (WRVU 1.93) performed by Shan Rivero MD at [facility] OSC PRO REMOVAL ERUPTED TOOTH WITH ELEVATION OF MUCOPERIOSTEAL FLAP Bilateral 10/18/2020 SURGICAL EXTRACTIONS REQUIRING ELEVATION OF MUCOPERIOSTEAL FLAP AND REMOVAL OF BONE OR SECTION OF TOOTH (WRVU 1.09) performed by Shan Rivero MD at [facility] OSC PRO UNLISTED PROCEDURE NERVOUS SYSTEM Right 05/24/2022 EXPLORATION VENTRICULO-PERITONEAL SHUNT (WRVU 25.48) performed by Rhoda Jimenez MD at [facility] MAIN OR SHOULDER SURGERY ULNAR TUNNEL [...] [Transparent Dressings] Itching Vancomycin Analogues Vancomycin Hcl Medications: MAR and/or home medications have been reviewed. Physical Exam: Preprocedure Vitals Current as of 06/09/23 1222 BP: 121/86 Pulse: 77 Resp: 18 SpO2: 92 Temp: 36.5 ??C (97.7 ??F) Height: 167.6 cm (5' 6) (06/09/23) Weight: 72.6 kg (160 lb) (06/09/23) BMI: 25.82 IBW: 63.8 kg (140 lb 9.2 oz) Last edited 06/09/23 0842 by MM Currently displaying vitals information from multiple entries within 180 minutes of most recent vitals. Airway Assessment: Mallampati: II TM distance: >3 FB Neck ROM: full Cardiovascular Assessment: Rhythm: regular Rate: normal Pulmonary Assessment: unlabored breathing Dental Assessment: Misc Assessment: Patient is wearing No contact(s). IV access: Peripheral line Last Filed Perioperative Cognitive Screening None Anesthesia Plan: ASA 4 emergent general, with a(n) intravenous induction Region - Other Informed Consent: Anesthetic plan and risks discussed with patient. Use of blood products discussed with patient who consented to blood products. Plan discussed with INTERNET MARKETING ANALYST. Anesthesia Screening Attending Note: Chapin Costa is a 52 y.o. male who presents for the above procedure in the setting of a shunt malfunction. Past medical history was reviewed and is significant for: - Congenital hydrocephalus, aquaductal stenosis - Seizures, none recently - Cervicalgia - Hypothyroidism - Migraines Anesthestic PMH: Mac 4 gr`1x1, multiple prior anesthetics NPO: Appropriate-- ROS positive for: nil METS: >4 Cardiac: EKG 2019 reviewed. NSR Labs: Lab Results Component Value Date WBC 12.7 (H) 06/08/2023 HCT 50.4 (H) 06/08/2023 K 4.0 06/08/2023 CREATININE 1.14 06/08/2023 No results for input(s): ABORH in the last 7068 hours. Anesthestic Plan: Plan GETA, standard ASA monitors, PIV after discussion of benefits, indications, and risks (including but not limited to sore throat, dental injury, prolonged intubation, cardiac or neurologic event). Madison Davis MD documented in this encounter Plan of Treatment Not on file documented as of this encounter Visit Diagnoses Not on filedocumented in this encounter Administered Medications Inactive Administered Medications - up to 3 most recent administrations Medication Order MAR Action Action Date Dose Rate Site acetaminophen (Ofirmev) (1,000 mg/100 mL) infusion Intravenous, Administer over 15 Minutes, PRN, Starting on Thu06/09/23 at 1514, Until Thu06/09/23 at 1548, Anesthesia Intra-op, Routine Given 06/09/2023 3:14 PM EDT 1,000 mg ceFAZolin (Ancef) (100 mg/mL) injection solution Intravenous, PRN, Starting on Thu06/09/23 at 1451, Until Thu06/09/23 at 1548, Anesthesia Intra-op, Routine Given 06/09/2023 2:51 PM EDT 2 g dexAMETHasone (Decadron) injection Intravenous, PRN, Starting on Thu06/09/23 at 1453, Until Thu06/09/23 at 1548, Anesthesia Intra-op, Routine Given 06/09/2023 2:53 PM EDT 8 mg dexmedeTOMIDine (Precedex) (4 mcg/mL) bolus injection (Anesthsia) Intravenous, PRN, Starting on Thu06/09/23 at 1419, Until Thu06/09/23 at 1548, Anesthesia Intra-op, Routine Given 06/09/2023 2:19 PM EDT 8 mcg lactated ringers infusion Intravenous, CONTINUOUS PRN, Starting on Thu06/09/23 at 1419, Until Thu06/09/23 at 1548, Anesthesia Intra-op New Bag 06/09/2023 2:19 PM EDT lidocaine (pf) (Xylocaine) (20 mg/mL) 2% injection syringe Intravenous, PRN, Starting on Thu06/09/23 at 1421, Until Thu06/09/23 at 1548, Anesthesia Intra-op, Routine Given 06/09/2023 2:21 PM EDT 50 mg ondansetron (pf) (Zofran) (2 mg/mL) injection Intravenous, PRN, Starting on Thu06/09/23 at 1514, Until Thu06/09/23 at 1548, Anesthesia Intra-op, Routine Given 06/09/2023 3:14 PM EDT 4 mg PHENYLephrine (Felipe-Synephrine) (80 mcg/mL) in sodium chloride 0.9% 250 mL infusion Intravenous, CONTINUOUS PRN, Starting on Thu06/09/23 at 1509, Until Thu06/09/23 at 1548, Anesthesia Intra-op, Routine New Bag 06/09/2023 3:09 PM EDT 20 mcg/min 15 mL/hr PHENYLephrine in NS (PF) (FELIPE-SYNEPHRINE) 0.8 mg/10 mL (80 mcg/mL) multi-dose injection Syringe Intravenous, PRN, Starting on Thu06/09/23 at 1503, Until Thu06/09/23 at 1548, Anesthesia Intra-op, Routine Given 06/09/2023 3:16 PM EDT 80 mcg Given 06/09/2023 3:09 PM EDT 40 mcg Given 06/09/2023 3:03 PM EDT 40 mcg propofoL (Diprivan) (10 mg/mL) infusion Intravenous, CONTINUOUS PRN, Starting on Thu06/09/23 at 1424, Until Thu06/09/23 at 1548, Anesthesia Intra-op, Routine New Bag 06/09/2023 2:24 PM EDT 50 mcg/kg/min 21.78 mL/hr propofoL (Diprivan) 10 mg/mL bolus injection (Anesthesia) Intravenous, PRN, Starting on 06/09/23 at 1422, Until 06/09/23 at 1548, Anesthesia Intra-op Given 06/09/2023 3:27 PM EDT 50 mg Given 06/09/2023 2:24 PM EDT 30 mg Given 06/09/2023 2:23 PM EDT 50 mg rocuronium (Zemuron) (10 mg/mL) multi-dose injection Intravenous, PRN, Starting on e 06/09/23 at 1422, Until 06/09/23 at 1548, Anesthesia Intra-op, Routine Given 06/09/2023 2:22 PM EDT 50 mg sugammadex (Bridion) 100 mg/mL injection Intravenous, PRN, Starting on Thu06/09/23 at 1533, Until Thu06/09/23 at 1548, Anesthesia Intra-op, Routine Given 06/09/2023 3:33 PM EDT 200 mg documented in this encounter Care Teams Legal Receptionist Relationship Specialty Start Date End Date Peter Lebron PA [address] [place] [address] PCP - General Internal Medicine 08/21/22 documented as of this encounter
--- OUTSIDE RECORDS SUMMARY | 2024-02-29 15:47 | XMS_ITS | Encounter Summary ---
Author Organization [facility] [place] [facility] [address] Care Team Providers Care Seaman Name Role Phone Peter Lebron Primary Care Provider Encounter Details Date Type Department Care Team (Latest Contact Info) Description 09/01/2022 Travel Social History Tobacco Use Types Packs/Day Years Used Date Smoking Tobacco: Never Smokeless Tobacco: Never Alcohol Use Standard Drinks/Week Comments No 0 (1 standard drink = 0.6 oz pur e alcohol) [facility] Inpatient Questions Answer Date Recorded [...] on filedocumented in this encounter Care Teams Seaman Relationship Specialty Start Date End Date Peter Lebron PA [address] [place], [place] [id number] PCP - General Internal Medicine 08/21/22 documented as of this encounter
--- OUTSIDE RECORDS SUMMARY | 2024-02-29 15:47 | XMS_ITS | Encounter Summary ---
[place] [address] Care Team Providers Care Training Coordinator Name Role Phone Peter Lebron Primary Care Provider [phone] Reason for Referral * Diagnostic Test (Routine) - Closed Specialty Diagnoses / Procedures Referred By Contac t Referred To Contact Radiology Diagnoses Hydrocephalus, unspecified type Procedures CT Head wo Contrast (Generic) Sonia Escalona APRN [facility] [place] [address] [facility] [place] [address] Referral ID Status Reason Start Date Expiration Date V isits Requested Visits Authorized [id number] Closed Specialty Service Requested 06/10/2022 12/11/2023 1 1 Reason for Visit * Diagnostic Test (Routine) - Closed Specialty Diagnoses / Procedures Referred By Contac t Referred To Contact Radiology Diagnoses Hydrocephalus, unspecified type Procedures CT Head wo Contrast (Generic) Sonia Escalona APRN [facility] [place] [address] [facility] [place] [address] Referral ID Status Reason Start Date Expiration Date V isits Requested Visits Authorized [id number] Closed Specialty Service Requested 06/10/2022 12/11/2023 1 1 Encounter Details Date Type Department Care Team (Latest Contact Info) Description 09/08/2022 12:12 PM EDT - 09/08/2022 11:59 PM EDT Hospital [place] [address] Sonia Escalona APRN [facility] [place] [address] Hydrocephalus, unspecified type Discharge Disposition: Home Social [...] as directed every 30 days. On the 22nd of every month 04/29/2022 levothyroxine (SYNTHROID) 25 [...] Comments CT HEAD WO CONTRAST (GENERIC) Routine 09/08/2022 12:18 PM EDT Hydrocephalus, unspecified type documented in this encounter Results * CT Head wo Contrast (Generic) (09/08/2022 12:18 PM EDT) Anatomical Region Laterality Modality Head Computed Tomogra phy Impressions 09/09/2022 9:40 AM EDT Stable decompressed ventricular system. Stable focal prominence of the right lateral ventricular horn. Thank you for letting us participate in the care of this patient. ??If you are a health care provider and have any questions regarding this report, please contact the number below. ??For patients who have questions please contact the health rn medicare that requested your imaging first. ? Electronically signed by: Cl Sosa [facility] ([phone]), at 09/09/2022 9:40 AM Narrative 09/09/2022 9:40 AM EDT EXAMINATION: CT HEAD WO CONTRAST (GENERIC) CLINICAL HISTORY: Hydrocephalus, shunted, follow up TECHNIQUE: ??CT images of the head were acquired without intravenous contrast. COMPARISON: CT head 08/19/2022. FINDINGS: Ventricles/extra-axial spaces : Ventricles are decompressed with a right frontal approach ventricular catheter in place. Stable mild prominence of the right temporal horn. No extra-axial collections. Brain parenchyma: Small amount of right lateral temporal lobe encephalomalacia abutting the small right temporal craniotomy defect. No hemorrhages, masses, mass effect or extra-axial collections. Linear hypoattenuation in the right parietal lobe coursing towards the atria of the right lateral ventricle along the tract of a remote shunt catheter. Extracranial structures: Multiple craniotomy defects at site of prior shunt catheters. Paranasal sinuses and mastoid air cells are clear. Ill-defined soft tissue thickening about the right suboccipital shunt reservoir is similar compared to prior. Procedure Note Cl Sosa MD - 09/09/2022 EXAMINATION: CT HEAD WO CONTRAST (GENERIC) CLINICAL HISTORY: Hydrocephalus, shunted, follow up TECHNIQUE: CT images of the head were acquired without intravenouscontrast. COMPARISON: CT head 08/19/2022. FINDINGS: Ventricles/extra-axial spaces : Ventricles are decompressed with a rightfrontal approach ventricular catheter in place. Stable mild prominence of theright temporal horn. No extra-axial collections. Brain parenchyma: Small amount of right lateral temporal lobeencephalomalacia abutting the small right temporal craniotomy defect. No hemorrhages,masses, mass effect or extra-axial collections. Linear hypoattenuation in theright parietal lobe coursing towards the atria of the right lateral ventriclealong the tract of a remote shunt catheter. Extracranial structures: Multiple craniotomy defects at site of priorshunt catheters. Paranasal sinuses and mastoid air cells are clear. Ill-definedsoft tissue thickening about the right suboccipital shunt reservoir issimilar compared to prior. IMPRESSION Stable decompressed ventricular system. Stable focal prominence of theright lateral ventricular horn. Thank you for letting us participate in the care of this patient. If youare a health care provider and have any questions regarding this report,please contact the number below. For patients who have questions please contactthe health rn medicare that requested your imaging first. Electronically signed by: Cl Sosa [facility]([phone]), at 09/09/2022 9:40 AM Sonia Escalona MINILAB OPERATOR IMG CT ORDERABLES documented in this encounter Visit Diagnoses Diagnosis Hydrocephalus, unspecified type documented in this encounter Care Teams Training Coordinator Relationship Specialty Start Date End Date Peter Lebron PA [address] [place] [address] PCP - General Internal Medicine 08/21/22 documented as of this encounter
--- OUTSIDE RECORDS SUMMARY | 2024-02-29 15:47 | XMS_ITS | Encounter Summary ---
[place] [address] Care Team Providers Care Traveling Freight Agent Name Role Phone Peter Lebron Primary Care Provider Encounter Details Date Type Department Care Team (Latest Contact Info) Description 09/01/2022 11:15 AM EDT Laboratory Appointment Lab [address] [place] [id number] Hydrocephalus, congenital; Congenital hydrocephalus Social History Tobacco Use Types Packs/Day Years [...] Priority Date/Time Associated Diagnosis Comments HEMOGRAM Routine 09/01/2022 11:20 AM EDT Congenital hydrocephalus DIFFERENTIAL, AUTOMATED Routine 09/01/2022 11:20 AM EDT Congenital hydrocephalus SEDIMENTATION RATE Routine 09/01/2022 11 :20 AM EDT Hydrocephalus, congenital WBC Routine 09/01/2022 11:20 AM EDT Hydrocephalus, congenital CBC (WITH DIFF) Routine 09/01/2022 11:20 AM EDT Congenital hydrocephalus documented in this encounter Results * (ABNORMAL) Differential, Automated (09/01/2022 11:20 AM EDT) Neutrophil % 63.5 % [facility] Neutrophil Absolute 6.75(H) 1.70 - 6.10 x10(3)/mc L [facility] Lymph % 29.1 % [facility] Lymphocytes Abs 3.1 0.9 - 3.2 x10(3)/mc L [facility] Monocyte % 5.5 % [facility] Monocyte Abs 0.6 0.3 - 0.9 x10(3)/mc L [facility] Eos % 1.0 % [facility] Eosinophils Abs 0.1 0.0 - 0.4 x10(3)/mc L [facility] Basophil % 0.6 % [facility] Baso Absolute 0.1 0.0 - 0.1 x10(3)/mc L [facility] Immature Gran % 0.30 % [facility] Comment: Immature granulocytes(IG's)percentage and absolute count will include metamyelocytes, myelocytes, and promyelocytes. Blood smears from CBCs yielding IG's will be scanned manually for concordance. If this scan disagrees with the automated IG or if promyelocytes are noted, a manual differential will be performed. Immature Gran Absolute 0.03 0.00 - 0.04 x10(3)/mc L [facility] Blood 09/01/2022 11:2 0 AM EDT 09/01/2022 11:30 AM EDT Narrative Resulting Agency Comment Spec In Lab Socorro Maier WASTEWATER PROJECT MANAGER HEMATOLOGY ORDERA BLES [facility] [place] [address] * (ABNORMAL) Hemogram (09/01/2022 11:20 AM EDT) White Blood Cell 10.6(H) 4.0 - 9.5 x10(3)/ L [facility] Red Blood Cell 5.98(H) 4.58 - 5.54 x10(6)/mc L [facility] Hemoglobin 17.6(H) 13.7 - 16.5 g/dL [facility] Hematocrit 51.9(H) 40.5 - 48.5 % [facility] Mean Cell Volume 86.8 82.9 - 93.1 fL [facility] Mean Cell Hemoglobin 29.4 27.5 - 32.1 pg [facility] Mean Cell Hemoglobin Concentration 33.9 32.0 - 35.7 g/dL [facility] Platelet 200 145 - 357 x10(3)/mc L [facility] RDW Standard Deviation 42.2 36.0 - 45.0 fL [facility] RDW coefficient of variation 13.3 11.4 - 13.8 % [facility] Mean Platelet Volume 8.9 7.6 - 12.9 fL [facility] NRBC% auto 0.0 % [facility] NRBC Absolute 0.000 0.000 - 0.000 x10(3)/ L [facility] Blood 09/01/2022 11:2 0 AM EDT 09/01/2022 11:30 AM EDT Narrative Resulting Agency Comment Spec In Lab Socorro Maier APRN HEMATOLOGY ORDERA BLES Performing Organization Address City/[facility]/ZIP Co de Phone Number [facility] [place] [address] * (ABNORMAL) Sedimentation rate (09/01/2022 11:20 AM EDT) Sedimentation Rate Automated 29(H) 2 - 28 mm/hr [facility] Comment: Effective February 02, 2019 new capillary photometric technology has resulted in a change in reference ranges. It is recommended that each ESR result be reviewed with its own age appropriate reference range. Blood 09/01/2022 11:2 0 AM EDT 09/01/2022 11:30 AM EDT Narrative Resulting Agency Comment Spec In Lab Sonia Escalona WASTEWATER PROJECT MANAGER HEMATOLOGY ORDERA BLES Performing Organization Address City/[facility]/ZIP Co de Phone Number [facility] [place] [address] * (ABNORMAL) WBC (09/01/2022 11:20 AM EDT) White Blood Cell 10.6(H) 4.0 - 9.5 x10(3)/mcL [facility] Blood 09/01/2022 11:2 0 AM EDT 09/01/2022 11:30 AM EDT Narrative Resulting Agency Comment Spec In Lab Sonia Escalona WASTEWATER PROJECT MANAGER HEMATOLOGY ORDERA BLES Performing Organization Address City/[facility]/ZIP Co de Phone Number [facility] [place] [address] documented in this encounter Visit Diagnoses Diagnosis Hydrocephalus, congenital Congenital hydrocephalus Congenital hydrocephalus documented in this encounter Care Teams Traveling Freight Agent Relationship Specialty Start Date End Date Peter Lebron PA [address] [place] [address] PCP - General Internal Medicine 08/21/22 documented as of this encounter
--- OUTSIDE RECORDS SUMMARY | 2024-02-29 15:47 | XMS_ITS | Encounter Summary ---
Author Organization [facility] [place] [address] Care Team Providers Care Header Machine Operator Name Role Phone Peter Lebron Primary Care Provider Encounter Details Date Type Department Care Team (Latest Contact Info) Description 09/07/2022 Travel Social History Tobacco Use Types Packs/Day [...] on filedocumented in this encounter Care Teams Header Machine Operator Relationship Specialty Start Date End Date Peter Lebron PA [address] [place], [place] [id number] PCP - General Internal Medicine 08/21/22 documented as of this encounter
--- OUTSIDE RECORDS SUMMARY | 2024-02-29 15:47 | XMS_ITS | Encounter Summary ---
Author Organization [facility] Address [facility] [place] [address] Care Team Providers Care Water Taxi Captain Name Role Phone Peter Lebron Primary Care Provider Encounter Details Date Type Department Care Team (Latest Contact Info) Description 10/06/2022 Travel Social History Tobacco Use Types Packs/Day [...] on filedocumented in this encounter Care Teams Water Taxi Captain Relationship Specialty Start Date End Date Peter Lebron PA [address] [place], [place] [id number] PCP - General Internal Medicine 08/21/22 documented as of this encounter
--- OUTSIDE RECORDS SUMMARY | 2024-02-29 15:47 | XMS_ITS | Encounter Summary ---
Author Organization [facility] Address [facility] [place] [address] Care Team Providers Care Physical Education Specialist Name Role Phone Peter Lebron Primary Care Provider Encounter Details Date Type Department Care Team (Latest Contact Info) Description 10/13/2022 Travel Social History Tobacco Use Types Packs/Day [...] on filedocumented in this encounter Care Teams Physical Education Specialist Relationship Specialty Start Date End Date Peter Lebron PA [address] [place], [place] [phone] PCP - General Internal Medicine 08/21/22 documented as of this encounter
--- OUTSIDE RECORDS SUMMARY | 2024-02-29 15:47 | XMS_ITS | Encounter Summary ---
Author Organization [place] [address] Care Team Providers Care Aircraft Servicer Name Role Phone Peter Lebron Primary Care Provider Reason for Referral * Diagnostic Test (Routine) - Closed Specialty Diagnoses / Procedures Referred By Contac t Referred To Contact Radiology Diagnoses Persistent headaches S/P LOG HAUL OPERATOR shunt Procedures CT Head wo Contrast (Generic) Cl Atkins PA [facility] [place] [address] [facility] [place] [address] Referral ID Status Reason Start Date Expiration Date V isits Requested Visits Authorized [id number] Closed Specialty Service Requested 09/10/2022 03/13/2024 1 1 Reason for Visit * Diagnostic Test (Routine) - Closed Specialty Diagnoses / Procedures Referred By Contac t Referred To Contact Radiology Diagnoses Persistent headaches S/P LOG HAUL OPERATOR shunt Procedures CT Head wo Contrast (Generic) Cl Atkins PA [facility] [place] [place] [address] [facility] [place] [address] Referral ID Status Reason Start Date Expiration Date V isits Requested Visits Authorized [id number] Closed Specialty Service Requested 09/10/2022 03/13/2024 1 1 Encounter Details Date Type Department Care Team (Latest Contact Info) Description 10/13/2022 2:02 PM EDT - 10/13/2022 4:14 PM EDT Hospital Encounter CT Scan at [facility] [place] [address] Rhoda Jimenez MD [facility] [place] [address] Persistent headaches; S/P LOG HAUL OPERATOR shunt Discharge Disposition: Home Social History Tobacco Use Types Packs/Day Years Used Date Smoking Tobacco: Never Smokeless Tobacco: Never Alcohol Use Standard Drinks/Week Comments No 0 (1 standard drink = 0.6 oz pur e alcohol) [facility] Inpatient Questions Answer Date Recorded [...] Comments CT HEAD WO CONTRAST (GENERIC) Routine 10/13/2022 2:10 PM EDT Persistent headaches S/P LOG HAUL OPERATOR shunt documented in this encounter Results * CT [...] who have questions please contact the health resident care supervisor that requested your imaging first. ? Electronically signed by: Carley Delgado MD, [facility] ([phone]), at 10/14/2022 9:17 AM Narrative 10/14/2022 9:17 [...] patients who have questions please contactthe health resident care supervisor that requested your imaging first. 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
--- OUTSIDE RECORDS SUMMARY | 2024-02-29 15:47 | XMS_ITS | Encounter Summary ---
Author Organization [facility] [place] [address] Care Team Providers Care Labor Relations Manager Name Role Phone Peter Lebron Primary Care Provider Encounter Details Date Type Department Care Team (Late st Contact Info) Description 08/28/2022 [place] [address] Mandy Lauren RN Social History Tobacco Use Types Packs/Day Years Used Date Smoking Tobacco: Never Smokeless Tobacco: Never Alcohol Use Standard Drinks/Week Comments No 0 (1 standard drink = 0.6 oz pur e alcohol) [facility] Inpatient Questions Answer Date Recorded Does Anyone [...] encounter Miscellaneous Notes * Telephone Encounter - Mandy Lauren RN - 08/28/2022 11:26 AM EDT Copied from CRM #[id number]. Topic: Specialty Dept CRMs - Triage >> Aug 28, 2022 9:18 AM Loree Guerrier wrote: Triage Message Specialist: Sonia Escalona APRN Relationship (if other than patient-full name): Self Symptom: Worsening headache , more tired all the time, right side of face is swollen and red Has patient experienced symptom before Yes If patient has experienced symptom before, when was the last time this occurred a week ago Is patient currently having symptom yes When did symptom begin a week ago Additional Comments: Patient states they ere seen in the hospital last week and their symptoms are worsening instead of improving. Please call to advise. Caller: Ever Reason for call: see above Still has a headache, extremely tired, pain in his head with looking up, swelling and redness on the right side of his face. Headache came back but he isn't sure when it came back, maybe last night. Right side of his face is red and hot to touch, new as of this morning. Shunt surgery site is not swollen or red. No fevers, checked his BP and this was normal at the drug store. He took a migraine pill and this hasn't helped. His appetite is less than normal but this has been going on all along. Plan: Will discuss with Dr. Jimenez/ [facility] and call patient back to advise. Discussed with Dr. Jimenez who does not think that patients symptoms are related to his shunt as did extensive testing while he was inpatient. She also recommended he f/u with PCP and check himself for any tick bites. Patient agreed to this plan. documented in this encounter Plan of Treatment Not on file documented as of this encounter Visit Diagnoses Not on filedocumented in this encounter Care Teams Labor Relations Manager Relationship Specialty Start Date End Date Peter Lebron PA [address] [place] [address] PCP - General Internal Medicine 08/21/22 documented as of this encounter
--- OUTSIDE RECORDS SUMMARY | 2024-02-29 15:47 | XMS_ITS | Encounter Summary ---
[facility] [place] [address] Care Team Providers Care Air Shovel Operator Name Role Phone Peter Lebron Primary Care Provider Reason for Visit * Reason Comments Neurologic Problem * Auth/Cert (Routine) Specialty Diagnoses / Procedures Referred By Mansi cooley Referred To Contact Diagnoses Shunt malfunction Shunt malfunction, initial encounter Rhoda Jimenez MD [facility] [place] [address] [facility] Referral ID Status Reason Start Date Expiration Date Visits Re quested Visits Authorized [id number] 1 1 Encounter Details Date Type Department Care Team (Late st Contact Info) Description 06/09/2023 1:21 PM EDT - 06/09/2023 6:16 PM EDT Surgery [place] [address] Rhoda Jimenez MD [facility] [address] REVISION OR REPLACEMENT CSF SHUNT (WRVU 11.43) Social History Tobacco Use Types Packs/Day Years Used Date Smoking Tobacco: Never Smokeless Tobacco: Never Alcohol Use Standard Drinks/Week Comments No 0 (1 standard drink = 0.6 oz pur e alcohol) [facility] Utilities Answer Date Recorded [...] slept in a prison (including now)? No 06/09/2023 DH IPV Inpatient [...] Sign Reading Time Taken Comments Blood Pressure 121/84 06/09/2023 5:13 PM EDT Pulse 72 06/09/2023 4:45 PM EDT Temperature 36.5 ??C (97.7 ??F) 06/09/2023 5:13 PM ED T Respiratory Rate 17 06/09/2023 5:13 PM EDT Oxygen Saturation 95% 06/09/2023 6:15 PM EDT Inhaled Oxygen Concentration - - [...] Hydrocephalus Seizures Cervicalgia Headache Persistent headaches S/P COLLECTION SYSTEMS ADMINISTRATOR shunt History of Presentation: Per review of [...] cell count slightly elevated to 12. A COLLECTION SYSTEMS ADMINISTRATOR Shunt revision was offered to the patient and he elected to proceed. Hospital Course: On 06/08, Chapin Costa was taken to the OR for Revision of his COLLECTION SYSTEMS ADMINISTRATOR shunt. He was found to havea distal [...] Negative mcL Appearance UA Clear Clear Spec [place] UA 1.029 1.005 - 1.030 Color UA Yellow Yellow Culture Reflexed No Studies: SCAN DOC: TELEMETRY STRIPS Result Date: 06/09/2023 Ordered by an unspecified provider. Request For 2nd Read CT Abdomen & Pelvis Result Date: 06/09/2023 EXAMINATION: REQUEST FOR 2ND READ CT ABDOMEN AND PELVIS CLINICAL HISTORY: abdominal pain; Sending Institution [facility]; Date of exam [id number]; I believe a reinterpretation of this exam may alter care of Patient. Yes TECHNIQUE: Reinterpretation of CT abdomen pelvis without intravenous contrast performedat [facility] on 06/06/2023 at 1350 hours. COMPARISON: [...] present in the left omentum. Abdominal wall: COLLECTION SYSTEMS ADMINISTRATOR shunt is fractured in the right upper abdominalwall, (series 4 image 94). COLLECTION SYSTEMS ADMINISTRATOR shunt catheter enters the peritoneal space through the right rectus abdominal muscle. Bilateral small fat-containing inguinal hernias. Reproductive organs: Normal. Osseous structures: No suspicious lesions. Mild degenerative changes in the lumbar spine. 1. Fractured COLLECTION SYSTEMS ADMINISTRATOR shunt catheter in the subcutaneous tissues of [...] who have questions please contact the health cattle care worker that requested your imaging first. Electronically signed by: Kierra Newsome MD, [facility] ([phone]), at 06/09/2023 7:[address] Head wo [...] patients who have questions please contactthe health cattle care worker that requested your imaging first. Shunt Series [...] who have questions please contact the health cattle care worker that requested your imaging first. Electronically signed by: Santana Jean-Baptiste MD, [facility] ([phone]), at 06/08/2023 6:47 PM Film Library- Storage [...] By Expires CT Head wo Contrast (Generic) [[id number] Custom] 07/10/2023 (Approximate) 01/09/2024 Process Instructions: Scheduling Instructions: Questions: Clinical information / miramontes questions for radiologist: Where will study be performed?: [facility] Radiology Stat read required?: Does patient [...] Vancomycin Hcl Commonly used phone numbers Neuro-oncology [phone] Radiation oncology [phone] Endocrinology [phone] Infectious disease [phone] Neurology [phone] Hematology/Oncology [phone] Plastic Surgery [phone] Trauma/General Surgery [phone] Urology [phone] Instructions Given to Patient at Discharge: Patient [...] to pass. These medications can be obtained [id number] and their use is recommended on an [...] your Primary Care Provider or withthe Neurosurgery RESILIENT TILE INSTALLER/RN. Appointments: [x] Please follow up in the Neurosurgery Clinic in 4-6 weeks. Please call the Neurosurgery Office at [phone] if you do not receive a scheduled [...] hours (after 5pm or before 8am): Call [phone] and ask the ross lift operator to page the Neurosurgery Resident/Advanced Practice Provider religious education teacher. *Your surgeon may not be matcher (especially after office hours or on the weekend) so be ready totell about yourself and your surgery when you call. Neurosurgery Providers Adult Neurosurgery Dr. Ge Medina Pediatric Neurosurgery Dr. Tracey Lee Advanced Practice Providers Sonia Escalona, Nurse Practitioner (outpatient telehealth) Thelma Hebert, Physician Information Technology Analyst (inpatient/outpatient: neuro-oncology) Mirian Murrieta, Physician Information Technology Analyst (inpatient) Claire Brody, Physician Information Technology Analyst (inpatient) Roberto Samano, Physician Information Technology Analyst (inpatient) Dennis Calix, Nurse Practitioner (outpatient: pediatric) Ness Vance, Nurse Practitioner (outpatient: vascular) Mary Jessica, Physician Information Technology Analyst (outpatient: spine) Cl Atkins, Physician Information Technology Analyst (outpatient) Outpatient Nurses EDWARD Knox APRN 06/10/2023 documented in this encounter Discharge Instructions * Patient Instructions* Leighton Patel, LABOR RELATIONS CONSULTANT - 06/10/2023 6:29 AM EDT VENTRICULOPERITONEAL SHUNT [...] to pass. These medications can be obtained [id number] and their use is recommended on an [...] your Primary Care Provider or withthe Neurosurgery RESILIENT TILE INSTALLER/RN. Appointments: [x] Please follow up in the Neurosurgery Clinic in 4-6 weeks. Please call the Neurosurgery Office at [phone] if you do not receive a scheduled [...] hours (after 5pm or before 8am): Call [phone] and ask the ross lift operator to page the Neurosurgery Resident/Advanced Practice Provider religious education teacher. *Your surgeon may not be matcher (especially after office hours or on the weekend) so be ready totell about yourself and your surgery when you call. Neurosurgery Providers Adult Neurosurgery Dr. Ge Medina Pediatric Neurosurgery Dr. Tracey Lee Advanced Practice Providers Sonia Escalona, Nurse Practitioner (outpatient telehealth) Thelma Hebert, Physician Information Technology Analyst (inpatient/outpatient: neuro-oncology) Mirian Murrieta, Physician Information Technology Analyst (inpatient) Claire Brody, Physician Information Technology Analyst (inpatient) Roberto Samano, Physician Information Technology Analyst (inpatient) Dennis Calix, Nurse Practitioner (outpatient: pediatric) Ness Vance, Nurse Practitioner (outpatient: vascular) Mary Jessica, Physician Information Technology Analyst (outpatient: spine) Cl Atkins, Physician Information Technology Analyst (outpatient) Outpatient Nurses Jose Rafael Kline [...] of this encounter Progress Notes * Elke Laughlin RN - 06/10/2023 1:33 PM EDT Chapin Costa discharged to Home by private car with Family member. All belongings sent with patient. ADAM removed, incision site dry and intact , skin free from pressure ulcers. Discharge instructions,and follow-up appointments reviewed, education provided on site care. All questions answered. Patient instructed to call with concerns. * Laila Ricci MD - 06/10/2023 7:07 AM EDT NEUROSURGERY PROGRESS NOTE PLEASE PAGE [phone] WITH QUESTIONS ID: Chapin Costa is a [...] -DISPOSITION: pending course -FULL CODE Please page [phone] with questions/concerns for in-house NSGY patients IMAGING: [...] who have questions please contact the health cattle care worker that requested your imaging first. Electronically signed by: Santana Jean-Baptiste MD, [facility] ([phone]), at 06/08/2023 6:[address] Head wo [...] who have questions please contact the health cattle care worker that requested your imaging first. Request For 2nd Read CT Abdomen & Pelvis (Exam End: 06/08/2023 10:31 PM) Impression 1. Fractured COLLECTION SYSTEMS ADMINISTRATOR shunt catheter in the subcutaneous tissues of [...] who have questions please contact the health cattle care worker that requested your imaging first. Electronically signed by: Kierra Newsome MD, [facility] ([phone]), at 06/09/2023 7:44 AM MEDICATIONS: Scheduled Meds: [...] Hydrocephalus Seizures Cervicalgia Headache Persistent headaches S/P COLLECTION SYSTEMS ADMINISTRATOR shunt Laila Ricci MD 06/10/2023 * Laila Ricci MD - 06/09/2023 4:08 PM EDT NEUROSURGERY PROGRESS NOTE PLEASE PAGE [phone] WITH QUESTIONS ID: Chapin Costa is a [...] -DISPOSITION: pending course -FULL CODE Please page [phone] with questions/concerns for in-house NSGY patients IMAGING: [...] who have questions please contact the health cattle care worker that requested your imaging first. Electronically signed by: Santana Jean-Baptiste MD, [facility] ([phone]), at 06/08/2023 6:[address] Head wo [...] who have questions please contact the health cattle care worker that requested your imaging first. Request For 2nd Read CT Abdomen & Pelvis (Exam End: 06/08/2023 10:31 PM) Impression 1. Fractured COLLECTION SYSTEMS ADMINISTRATOR shunt catheter in the subcutaneous tissues of [...] who have questions please contact the health cattle care worker that requested your imaging first. Electronically signed by: Kierra Newsome MD, [facility] ([phone]), at 06/09/2023 7:44 AM MEDICATIONS: Scheduled Meds: [...] Hydrocephalus Seizures Cervicalgia Headache Persistent headaches S/P COLLECTION SYSTEMS ADMINISTRATOR shunt Laila Ricci MD 06/09/2023 * Gwendolyn Peralta RN - 06/09/2023 4:00 PM EDT 1600: RN break coverage. A&Ox4, follows commands. * Sole Steel RN - 06/09/2023 3:52 PM EDT 1542: Chapin Costa arrived from OR to PACU 20. Attached to monitors, alarms set appropriately & are audible. Oral airway in on arrival, lungs are clear. NSR on patient monitor. Abdo site is clean and dry with mepilex intact. 1645: Phase 2 criteria met. Updates given to L5WD RN Calyn. * Laila Ricci MD - 06/09/2023 7:36 AM EDT NEUROSURGERY PROGRESS NOTE PLEASE PAGE [phone] WITH QUESTIONS ID: Chapin Costa is a [...] -DISPOSITION: pending course -FULL CODE Please page [phone] with questions/concerns for in-house NSGY patients IMAGING: [...] who have questions please contact the health cattle care worker that requested your imaging first. Electronically signed by: Santana Jean-Baptiste MD, [facility] ([phone]), at 06/08/2023 6:[address] Head wo [...] who have questions please contact the health cattle care worker that requested your imaging first. Request For 2nd Read CT Abdomen & Pelvis (Exam End: 06/08/2023 10:31 PM) Impression 1. Fractured COLLECTION SYSTEMS ADMINISTRATOR shunt catheter in the right anterior abdominal [...] Hydrocephalus Seizures Cervicalgia Headache Persistent headaches S/P COLLECTION SYSTEMS ADMINISTRATOR shunt Laila Ricci MD 06/09/2023 documented in this encounter H&P Notes * Richard Valles MD - 06/09/2023 6:39 AM EDT [facility] NEUROSURGERY Admission H&P Update The patient was seen & examined by Richard Valles MD on 06/09/2023. Please see NSGY consult note from 06/09/2023 for further details on this admission. There are no changes to report. Richard Valles MD 06/09/2023 6:39 AM [facility] Neurosurgery NSGY Inpatient Pager: #[phone] documented in this encounter ED Notes * Zoya Canales RN - 06/08/2023 10:18 PM EDT Pt guardian requesting to be given a call when he has a room in the hospital. 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 Patient was evaluated at an [facility] where he had CT scan reportedly that [...] CT scan from this past Thursday at [facility]. He states he is having theexact same symptoms that he had when he had the CT scan and is not worse or different currently. Heis hemodynamically stable and neurologically intact without any change in his mental status on my reevaluation. Derek Ni MD 06/08/230 * Dyana Neumann APRN - 06/08/2023 5:32 PM EDT In-Triage Brief Provider Note: Brief HPI: 52-year-old male with history of headache, seizures, hydrocephalus with COLLECTION SYSTEMS ADMINISTRATOR shunt in place presented[facility] for abdominal pain today where he [...] to return to the waiting room. Dyana Neumann APRN 06/08/23 1736 Dyana Neumann APRN 06/08/23 1805 documented in this encounter Miscellaneous Notes * Care Management Discharge - Tess Baig RN - 06/10/2023 1:40 PM EDT CARE [...] are in agreement with plan. Tess Baig CM pager [phone] * Plan of Care - Megan Lemons RN - 06/10/2023 6:00 AM EDT Problem: Adult Inpatient Plan of Care Goal: Optimal Comfort and Wellbeing Outcome: Ongoing (Interventions Implemented as Appropriate) * Plan of Care - El Denney RN - 06/09/2023 6:34 PM EDT Problem: Adult Inpatient Plan of Care Goal: Plan of Care Review 06/09/2023 1834 by El Denney RN Outcome: Ongoing (Interventions [...] Jimenez MD - 06/09/2023 4:34 PM EDT [facility] Operative Note Patient Name: Chapin Costa : [id number] MR#: [id number] Case Date: 06/09/2023 Surgeon: Surgeon(s) and Role: [...] and belly, this was marked with green winnebago. The patient was taken back to the [...] Operative Note Patient Name: Chapin Costa : [id number] MR#: [id number] Case Date: 06/09/2023 Surgeon: Surgeon(s) and Role: [...] surrogate would be surrogate decision maker per [place] decision making law. (Only good for 180 days) Any patient receiving care in [place] must abide by [place] law. The hierarchy for surrogate decision making [...] (i) The agent with financial power of commercial real estate attorney or a conservator appointed in accordance [...] In the past 12 months has the [employer], gas, oil, or water [employer] threatened to shut off services in your [...] CPAP at night) Home Address confirmed as: [address] [place] [address] [address] [facility] [address] Social & Family Supports: All names listed below confirmed with patient as current and correct Extended Emergency Contact Information Primary Emergency Contact: Tracy Fregoso Address: [address] [place], [place] [address] [place] [address] Mobile Relation: Guardianship Secondary Emergency Contact: RICH FREGOSO Address: [place] [address] [place] Relation: Step parent Current Care [...] *No Product type* / Secondary Insurance: [place]ICAID [place] ; Prescription Coverage: Yes Preferred Pharmacy: [facility] [address] [address] Status: Patient is a : No Primary Care Provider confirmed: MARVA Gordon [phone] Patient/Caregiver Goals of Treatment: to return home [...] of care planning. Akash Mancilla RN BSN CCM * Plan of Care - El Denney RN - 06/09/2023 8:26 AM EDT Patient arrived to unit * Consult Note - Justin Allen MD - 06/09/2023 6:30 AM EDT Acute Care Surgery Inpatient Consult Note Patient Name: Chapin Costa MR#: [id number] : 1970 Admission Date: 06/08/2023 Reason for Consult: Abdominal exposure for COLLECTION SYSTEMS ADMINISTRATOR shunt History of Present Illness: Chapin Costa [...] Patient Active Problem List Diagnosis Code S/P COLLECTION SYSTEMS ADMINISTRATOR shunt Z98.2 Persistent headaches R51.9 Headache R51.9 Cervicalgia M54.2 Seizures R56.9 Hydrocephalus G91.9 Congenital hydrocephalus Q03.9 PSH: Past Surgical History: Procedure Laterality Date CARPAL TUNNEL RELEASE Right CHOLECYSTECTOMY, LAPAROSCOPIC PRO ALVEOLOPLASTY W EXTRACTIONS, 4 OR MORE TEETH, PER QUADRANT N/A 10/18/2020 ALVEOPLASTY,IN CONJUNCTION WITH EXTRACTIONS,PER QUADRANT,ENT (WRVU 4.06) performed by Shan Rivero MD at [facility] OSC PRO EXTRACTION, ERUPTED TOOTH OR EXPOSED ROOT N/A 10/18/2020 EXTRACTION, ERUPTED TOOTH OR EXPOSED ROOT (WRVU 0.62) performed by Shan Rivero MD at [facility] OSC PRO IMPACT TOOTH REM BONY W/COMP N/A 10/18/2020 SURGICAL EXTRACTIONS, REMOVAL OF IMPACTED TOOTH, COMPLETELY BONY WITH UNUSUAL SURGICAL COMPLICATIONS (WRVU 2.91) performed by Shan Rivero MD at [facility] OSC PRO IMPACT TOOTH REMOV COMP BONY N/A 10/18/2020 SURGICAL EXTRACTIONS, REMOVAL OF IMPACTED TOOTH, COMPLETELY BONY (WRVU 1.93) performed by Shan Rivero MD at [facility] OSC PRO REMOVAL ERUPTED TOOTH WITH ELEVATION OF MUCOPERIOSTEAL FLAP Bilateral 10/18/2020 SURGICAL EXTRACTIONS REQUIRING ELEVATION OF MUCOPERIOSTEAL FLAP AND REMOVAL OF BONE OR SECTION OF TOOTH (WRVU 1.09) performed by Shan Rivero MD at [facility] OSC PRO UNLISTED PROCEDURE NERVOUS SYSTEM Right 05/24/2022 EXPLORATION VENTRICULO-PERITONEAL SHUNT (WRVU 25.48) performed by Rhoda Jimenez MD at [facility] MAIN OR SHOULDER SURGERY ULNAR TUNNEL [...] 9.8 MAGNESIUM 0.91 PHOS 3.4 Recent Labs 06/08/23 183 PROT 7.8 ALBUMIN 4.6 BILITOT 0.7 ALKPHOS 109 AST 14 ALT 19 Recent Labs 06/08/23 1840 LACTATEVEN 2.0 No results for input(s): PHART, LLI5KEB, PO2ART, YAR9FMV in the last 72 hours. Studies: CT A/P 1. Fractured COLLECTION SYSTEMS ADMINISTRATOR shunt catheter in the right anterior abdominal [...] available for assistance laparoscopically vs laparotomy for COLLECTION SYSTEMS ADMINISTRATOR shunt exposure with Neurosurgery Recommendations: - Second panel w/ Dr. Allen and Dr. Bowens has been added - Please page them personally when ready intra-op Above recommendations discussed with primary team. All plans formulated in discussion with and directed by attending surgeon Dr. Allen. Thank you for this consult. If you have any questions, please page [phone]. Consult service will continue to follow along. Therese Rowe MD 06/09/2023 Acute Care Surgery Service p.[phone] I saw and evaluated the patient. I [...] Valles MD - 06/08/2023 6:14 PM EDT [facility] NEUROSURGERY CONSULT NOTE Consult Requesting Service: ED Reason for consult: Abdominal pain- COLLECTION SYSTEMS ADMINISTRATOR shunt failure? ASSESSMENT: Chapin Costa is a [...] 2/2 aqueductal stenosis s/p revision of occluded COLLECTION SYSTEMS ADMINISTRATOR shunt valve with Dr. Jimenez in 05/24/2022, [...] distalcatheter within the abdominal wall, directed to [facility] emergency department for further workup and care [...] 4.06) performed by Shan Rivero MD at [facility] OSC PRO EXTRACTION, ERUPTED TOOTH OR EXPOSED ROOT N/A 10/18/2020 EXTRACTION, ERUPTED TOOTH OR EXPOSED ROOT (WRVU 0.62) performed by Shan Rivero MD at [facility] OSC PRO IMPACT TOOTH REM BONY W/COMP N/A 10/18/2020 SURGICAL EXTRACTIONS, REMOVAL OF IMPACTED TOOTH, COMPLETELY BONY WITH UNUSUAL SURGICAL COMPLICATIONS (WRVU 2.91) performed by Shan Rivero MD at [facility] OSC PRO IMPACT TOOTH REMOV COMP BONY N/A 10/18/2020 SURGICAL EXTRACTIONS, REMOVAL OF IMPACTED TOOTH, COMPLETELY BONY (WRVU 1.93) performed by Shan Rivero MD at [facility] OSC PRO REMOVAL ERUPTED TOOTH WITH ELEVATION OF MUCOPERIOSTEAL FLAP Bilateral 10/18/2020 SURGICAL EXTRACTIONS REQUIRING ELEVATION OF MUCOPERIOSTEAL FLAP AND REMOVAL OF BONE OR SECTION OF TOOTH (WRVU 1.09) performed by Shan Rivero MD at [facility] OSC PRO UNLISTED PROCEDURE NERVOUS SYSTEM Right 05/24/2022 EXPLORATION VENTRICULO-PERITONEAL SHUNT (WRVU 25.48) performed by Rhoda Jimenez MD at [facility] MAIN OR SHOULDER SURGERY ULNAR TUNNEL [...] this patient. Richard Valles MD Neurosurgery Pager: [phone] Associated attestation - Rhoda Jimenez MD - [...] 06/09/2023 9:28 PM EDT Replacement/Revision, Csf Shunt ([id number]) 06/09/2023 2:09 PM EDT shunt malfunction REVISION [...] EDT) Glucose, Urine Dipstick Negative Negative mg/dL [facility] Protein, Urine Dipstick Negative Negative mg/dL [facility] Bilirubin, Urine Dipstick Negative Negative mg/dL [facility] Comment: Clinical correlation required for positive Urine Bilirubin results as false positive may occur with some drugs and drug related products. If a false positive is suspected a serum total bilirubin should be considered if clinically indicated. Urobilinogen, Urine Dipstick Normal Normal mg/dL [facility] pH, Urn (dipstick) 5.5 5.0 - 8.0 [facility] Blood, Urine Dipstick Negative Negative mg/dL [facility] Ketone, Urine Dipstick Trace(A) Negative mg/dL [facility] Nitrite, Urine Dipstick Negative Negative [facility] Leukocytes, Urine Dipstick Negative Negative [facility] Appearance, Urine Dipstick Clear Clear [facility] Specific [place] Urine Automated 1.029 1.005 - 1.030 [facility] Color, Urine Dipstick Yellow Yellow [facility] Reflex to Culture No [facility] Clean Catch Urine 06/10/2023 7:59 AM EDT 06/10/2023 8:53 AM EDT Narrative Resulting Agency Comment Spec In Lab Rhoda Jimenez MD URINE ORDERABLES Performing Organization Address City/State/[facility] Co de Phone Number [facility] [place] [address] * (ABNORMAL) Differential, Automated (06/10/2023 6:10 AM EDT) Neutrophil % 85.9 % [facility] Neutrophil Absolute 14.58(H) 1.70 - 6.10 x10(3)/mc L [facility] Lymph % 10.8 % [facility] Lymphocytes Abs 1.8 0.9 - 3.2 x10(3)/mc L [facility] Monocyte % 2.7 % [facility] Monocyte Abs 0.4 0.3 - 0.9 x10(3)/ L [facility] Eos % 0.0 % [facility] Eosinophils Abs 0.0 0.0 - 0.4 x10(3)/[facility] Basophil % 0.2 % [facility] Baso Absolute 0.0 0.0 - 0.1 x10(3)/mc L [facility] Immature Gran % 0.40 % [facility] Comment: Immature granulocytes(IG's)percentage and absolute count will include metamyelocytes, myelocytes, and promyelocytes. Blood smears from CBCs yielding IG's will be scanned manually for concordance. If this scan disagrees with the automated IG or if promyelocytes are noted, a manual differential will be performed. Immature Gran Absolute 0.06(H) 0.00 - 0.04 x10(3)/mc L [facility] Blood 06/10/2023 6:10 AM EDT 06/10/2023 6:22 AM EDT Narrative Resulting Agency Comment Spec In Lab Richard Valles MD HEMATOLOGY ORDERABLE S [facility] [place] [address] * (ABNORMAL) Hemogram (06/10/2023 6:10 AM EDT) White Blood Cell 17.0(H) 4.0 - 9.5 x10(3)/mc L [facility] Red Blood Cell 5.83(H) 4.58 - 5.54 x10(6)/mc L [facility] [facility] Hemoglobin 17.3(H) 13.7 - 16.5 g/dL [facility] Hematocrit 49.1(H) 40.5 - 48.5 % [facility] Mean Cell Volume 84.2 82.9 - 93.1 fL [facility] Mean Cell Hemoglobin 29.7 27.5 - 32.1 pg [facility] Mean Cell Hemoglobin Concentration 35.2 32.0 - 35.7 g/dL [facility] Platelet 272 145 - 357 x10(3)/mc L [facility] RDW Standard Deviation 41.0 36.0 - 45.0 fL [facility] RDW coefficient of variation 13.5 11.4 - 13.8 % [facility] Mean Platelet Volume 8.9 7.6 - 12.9 fL [facility] NRBC% auto 0.0 % [facility] NRBC Absolute 0.000 0.000 - 0.000 x10(3)/ L [facility] Blood 06/10/2023 6:10 AM EDT 06/10/2023 6:22 AM EDT Narrative Resulting Agency Comment Spec In Lab Richard Valles MD HEMATOLOGY ORDERABLE S [facility] [place] [address] * (ABNORMAL) Basic Metabolic Panel (non-fasting) (06/10/2023 6:10 AM EDT) Glucose 130 65 - 199 mg/dL [facility] Comment:Diabetes: >=200 mg/d L plus symptoms Blood Urea Nitrogen 17 10 - 20 mg/dL [facility] Comment:result rechecked-nb Creatinine 1.22 0.80 - 1.50 mg/dL [facility] Sodium 135 135 - 145 mmol/L [facility] Potassium 4.3 3.5 - 5.0 mmol/L [facility] Comment: Please note: ??Patients with WBC >100,000 may have falsely elevated Potassium levels. ??For accurate Potassium quantification in these patients send serum separator tube (gold top) for subsequent determinations. ??Contact the Clinical Chemistry Laboratory if there are any questions. Chloride 102 98 - 107 mmol/L [facility] Carbon Dioxide 21(L) 22 - 31 mmol/L [facility] Anion Gap 12 5 - 15 mmol/L [facility] Calcium 9.7 8.5 - 10.5 mg/dL [facility] Est Glomerular Filtration Rate 72 >=60 mL/min/1. 73 m?? [facility] Comment: This patient's estimated [...] In Lab Deng Hawk MD CHEMISTRY ORDERABLES [facility] [place] [address] * XR Shunt Series (06/09/2023 9:28 PM [...] who have questions please contact the health cattle care worker that requested your imaging first. ? Narrative [...] patients who have questions please contactthe health cattle care worker that requested your imaging first. Rhoda Jimenez [...] Impressions 06/09/2023 7:44 AM EDT 1. ??Fractured COLLECTION SYSTEMS ADMINISTRATOR shunt catheter in the subcutaneous tissues of [...] who have questions please contact the health cattle care worker that requested your imaging first. ? Electronically signed by: Kierra Newsome MD, [facility] ([phone]), at 06/09/2023 7:44 AM Narrative 06/09/2023 7:44 AM EDT EXAMINATION: REQUEST FOR 2ND READ CT ABDOMEN AND PELVIS CLINICAL HISTORY: abdominal pain; Sending Institution [facility]; Date of exam [id number]; I believe a reinterpretation of this exam may alter care of Patient. Yes TECHNIQUE: Reinterpretation of CT abdomen pelvis without intravenous contrast performed at [facility] on 06/06/2023 at 1350 hours. COMPARISON: [...] present in the left omentum. Abdominal wall: COLLECTION SYSTEMS ADMINISTRATOR shunt is fractured in the right upper abdominal wall, (series 4 image 94). COLLECTION SYSTEMS ADMINISTRATOR shunt catheter enters the peritoneal space through the right rectus abdominal muscle. Bilateral small fat-containing inguinal hernias. Reproductive organs: Normal. Osseous structures: No suspicious lesions. Mild degenerative changes in the lumbar spine. Procedure Note Karen Newsome MD - 06/09/2023 EXAMINATION: REQUEST FOR 2ND READ CT ABDOMEN AND PELVIS CLINICAL HISTORY: abdominal pain; Sending Institution [facility]; Date of exam [id number]; I believe a reinterpretation of this exam may alter care ofPatient. Yes TECHNIQUE: Reinterpretation of CT abdomen pelvis without intravenous contrastperformed at [facility] on 06/06/2023 at 1350 hours. COMPARISON: [...] ispresent in the left omentum. Abdominal wall: COLLECTION SYSTEMS ADMINISTRATOR shunt is fractured in the right upper abdominal wall,(series 4 image 94). COLLECTION SYSTEMS ADMINISTRATOR shunt catheter enters the peritoneal space through theright rectus abdominal muscle. Bilateral small fat-containing inguinalhernias. Reproductive organs: Normal. Osseous structures: No suspicious lesions. Mild degenerative changes inthe lumbar spine. IMPRESSION 1. Fractured COLLECTION SYSTEMS ADMINISTRATOR shunt catheter in the subcutaneous tissues of [...] patients who have questions please contactthe health cattle care worker that requested your imaging first. Electronically signed by: Kierra Newsome MD, [facility]([phone]), at 06/09/2023 7:44 AM Derek Ni MD [...] who have questions please contact the health cattle care worker that requested your imaging first. ? Narrative [...] patients who have questions please contactthe health cattle care worker that requested your imaging first. Dyana Neumann APRN IMG CT ORDERABLES * Blood culture (06/08/2023 6:51 PM EDT) Blood Culture No growth at 5 days. [facility] Blood STRUCTURE OF RIGHT HAND / Unknown 06/08/2023 6:51 PM EDT 06/08/2023 7:51 PM EDT Narrative Resulting Agency Comment Spec In Lab Dyana Neumann APRN MICROBIOLOGY - BL OOD ORDERABLES [facility] [place] [address] * (ABNORMAL) BLOOD GAS 2 VENOUS (06/08/2023 6:40 PM EDT) pH, Venous 7.40 7.32 - 7.42 [facility] PCO2, Venous 41 41 - 51 mmHg [facility] PO2, Venous 38 25 - 40 mmHg [facility] Bicarbonate, Venous 25.2 mmol/L [facility] Base Excess, Venous 0.5 mmol/L [facility] Hgb Blood Gas 17.8(H) 13.7 - 16.5 g/dL [facility] Oxyhemoglobin, Venous 69.9 % [facility] Carboxyhemoglob in, Venous 0.6 % [facility] Comment: Nonsmokers: 0.5-1.5% COHB Smokers: Variable, but usually less than 10% Toxic: 20-30% COHB Lethal: Greater than 60% COHB Methemoglobin, Venous 0.4 <=1.5 % [facility] Na Whole Blood 140 135 - 145 mmol/L [facility] K Whole Blood 4.3 3.5 - 5.0 mmol/L [facility] Comment: Please note: Patients with WBC >100,000 may have falsely elevated Potassium levels. Contact the Clinical Chemistry Laboratory if there are any questions. ICa Whole Blood 1.18 1.15 - 1.33 mmol/L [facility] Comment: Note: ??Total bilirubin higher than 20 mg/dL may lead to falsely low ionized calcium. CL Whole Blood 101 98 - 107 mmol/L [facility] Gluc Whole Bld 86 65 - 199 mg/dL [facility] Comment:Diabetes: >=200 mg/d L plus symptoms Lactate WB 2.0 0.5 - 2.2 mmol/L [facility] Blood Gas Source Venous [facility] Blood 06/08/2023 6:40 PM EDT 06/08/2023 6:40 PM EDT Emergency Dept POINT OF CARE TEST ORDERABLES [facility] [place] [address] * (ABNORMAL) Differential, Automated (06/08/2023 6:37 PM EDT) Neutrophil % 68.4 % [facility] Neutrophil Absolute 8.71(H) 1.70 - 6.10 x10(3)/[facility] Lymph % 24.5 % [facility] Lymphocytes Abs 3.1 0.9 - 3.2 x10(3)/[facility] Monocyte % 5.3 % [facility] Monocyte Abs 0.7 0.3 - 0.9 x10(3)/[facility] Eos % 0.8 % [facility] Eosinophils Abs 0.1 0.0 - 0.4 x10(3)/[facility] Basophil % 0.5 % [facility] Baso Absolute 0.1 0.0 - 0.1 x10(3)/[facility] Immature Gran % 0.50 % [facility] Comment: Immature granulocytes(IG's)percentage and absolute count will include metamyelocytes, myelocytes, and promyelocytes. Blood smears from CBCs yielding IG's will be scanned manually for concordance. If this scan disagrees with the automated IG or if promyelocytes are noted, a manual differential will be performed. Immature Gran Absolute 0.06(H) 0.00 - 0.04 x10(3)/ L [facility] Blood 06/08/2023 6:37 PM EDT 06/08/2023 6:46 PM EDT Narrative Resulting Agency Comment Spec In Lab Dyana C Vinyarszky LABOR RELATIONS CONSULTANT HEMATOLOGY ORDERA BLES [facility] [place] [address] * (ABNORMAL) Hemogram (06/08/2023 6:37 PM EDT) White Blood Cell 12.7(H) 4.0 - 9.5 x10(3)/mc L [facility] Red Blood Cell 5.90(H) 4.58 - 5.54 x10(6)/mc L [facility] Hemoglobin 17.6(H) 13.7 - 16.5 g/dL [facility] Hematocrit 50.4(H) 40.5 - 48.5 % [facility] Mean Cell Volume 85.4 82.9 - 93.1 fL [facility] Mean Cell Hemoglobin 29.8 27.5 - 32.1 pg [facility] Mean Cell Hemoglobin Concentration 34.9 32.0 - 35.7 g/dL [facility] Platelet 265 145 - 357 x10(3)/mc L [facility] RDW Standard Deviation 42.1 36.0 - 45.0 [facility] RDW coefficient of variation 13.6 11.4 - 13.8 % [facility] Mean Platelet Volume 8.8 7.6 - 12.9 fL [facility] NRBC% auto 0.0 % [facility] NRBC Absolute 0.000 0.000 - 0.000 x10(3)/mc L [facility] Blood 06/08/2023 6:37 PM EDT 06/08/2023 6:46 PM EDT Narrative Resulting Agency Comment Spec In Lab Dyana Laurie Neuamnn APRN HEMATOLOGY ORDERA BLES [facility] [place] [address] * APTT (06/08/2023 6:35 PM EDT) Partial Thromboplastin Time 33 25 - 37 sec [facility] Comment: The PTT is NOT appropriate for heparin monitoring. Use the Anti-Xa level for heparin monitoring (HEP UFH) or LMWH monitoring (HEP LMW). A PTT less than 37 seconds generally indicates adequate hemostasis. Blood 06/08/2023 6:35 PM EDT 06/08/2023 6:46 PM EDT Narrative Resulting Agency Comment Spec In Lab Dyanachanell Neumann LABOR RELATIONS CONSULTANT HEMATOLOGY ORDERA BLES Performing Organization Address [facility] Co de Phone Number [facility] [place] [address] * Prothrombin Time (06/08/2023 6:35 PM EDT) Prothrombin Time 11.7 9.4 - 12.5 sec [facility] International Normalization Ratio 1.0 [facility] Comment: An INR <2.0 [...] Agency Comment Spec In Lab Dyana Laurie Padillasotonaa LABOR RELATIONS CONSULTANT HEMATOLOGY ORDERA BLES Performing Organization Address [facility] Co de Phone Number [facility] [place] [address] * TSH Adams (06/08/2023 6:35 PM EDT) Thyroid Stimulating Hormone 2.77 0.27 - 4.20 mcIU/mL [facility] Comment: Reference Interval (mcIU/mL): Females: ??First Trimester: 0.23-3.88 ??Second Trimester: 0.22-3.90 ??Third Trimester: 0.44-4.66 Blood 06/08/2023 6:35 PM EDT 06/08/2023 6:46 PM EDT Narrative Resulting Agency Comment Spec In Lab Dyanachanell Padillasotonaa LABOR RELATIONS CONSULTANT CHEMISTRY ORDERAB LES Performing Organization Address City/[facility]/ZIP Co de Phone Number [facility] [place] [address] * Phosphorus (06/08/2023 6:35 PM EDT) Phosphorus 3.4 2.5 - 4.5 mg/dL [facility] Blood 06/08/2023 6:35 PM EDT 06/08/2023 6:46 PM EDT Narrative Resulting Agency Comment Spec In Lab Dyana Laurie Frankienaa LABOR RELATIONS CONSULTANT CHEMISTRY ORDERAB LES Performing Organization Address [facility] Co de Phone Number [facility] [place] [address] * Magnesium (06/08/2023 6:35 PM EDT) Magnesium 0.91 0.69 - 1.07 mmol/L [facility] Blood 06/08/2023 6:35 PM EDT 06/08/2023 6:46 PM EDT Narrative Resulting Agency Comment Spec In Lab Dyana Laurie Angulolizabethapolinarsotonaa LABOR RELATIONS CONSULTANT CHEMISTRY ORDERAB LES Performing Organization Address City/[facility] Co de Phone Number [facility] [place] [address] * Blood culture (06/08/2023 6:35 PM EDT) Blood Culture No growth at 5 days. [facility] Blood ANTECUBITAL REGION STRUCTURE / Unknown 06/08/2023 6:35 PM EDT 06/08/2023 7:52 PM EDT Narrative Resulting Agency Comment Spec In Lab Dyana Sullivan Nel DE JESUS MICROBIOLOGY - BL OOD ORDERABLES [facility] [place] [address] * Comprehensive metabolic panel (non-fasting) (06/08/2023 6:35 PM EDT) Glucose 91 65 - 199 mg/dL [facility] Comment:Diabetes: >=200 mg/d L plus symptoms Blood Urea Nitrogen 10 10 - 20 mg/dL [facility] Creatinine 1.14 0.80 - 1.50 mg/dL [facility] Sodium 138 135 - 145 mmol/L [facility] Potassium 4.0 3.5 - 5.0 mmol/L [facility] Comment: Please note: ??Patients with WBC >100,000 may have falsely elevated Potassium levels. ??For accurate Potassium quantification in these patients send serum separator tube (gold top) for subsequent determinations. ??Contact the Clinical Chemistry Laboratory if there are any questions. Chloride 100 98 - 107 mmol/L [facility] Carbon Dioxide 26 22 - 31 mmol/L [facility] Anion Gap 12 5 - 15 mmol/L [facility] Calcium 9.8 8.5 - 10.5 mg/dL [facility] Protein, Total 7.8 6.1 - 8.0 g/dL [facility] Albumin 4.6 3.2 - 5.2 g/dL [facility] Aspartate Aminotransferase 14 0 - 39 unit/L [facility] Alanine Aminotransferase 19 0 - 55 unit/L [facility] Alkaline Phosphatase 109 40 - 130 unit/L [facility] Bilirubin, Total 0.7 0.2 - 1.3 mg/dL [facility] Est Glomerular Filtration Rate 78 >=60 mL/min/1. 73 m?? [facility] Comment: This patient's estimated [...] Agency Comment Spec In Lab Dyana Neumann LABOR RELATIONS CONSULTANT CHEMISTRY ORDERAB LES [facility] [place] [address] * XR Shunt Series (06/08/2023 6:25 PM [...] who have questions please contact the health cattle care worker that requested your imaging first. ? Electronically signed by: Santana Jean-Baptiste MD, [facility] ([phone]), at 06/08/2023 6:47 PM Narrative 06/08/2023 6:47 [...] patients who have questions please contactthe health cattle care worker that requested your imaging first. Electronically signed by: Santana Jean-Baptiste MD, [facility]([phone]), at 06/08/2023 6:47 PM Dyana Sullivan Nel LABOR RELATIONS CONSULTANT IMG DX ORDERABLES documented in this encounter [...] Given 06/09/2023 5:38 PM EDT 10 mg BUpivacaine-EPINEPHrine (Marcaine-epiNEPHrine) 0.25 %-1:200,000 injection PRN, Starting on Thu06/09/23 at 1520, Until Thu06/10/23 at 1541, Intra-Operative (Intra-Procedure), Routine Given 06/09/2023 3:20 PM EDT 6 mLs 19- Surgical Site hydrOXYzine (Atarax) tablet 10 mg 10 mg, [...] Given 06/09/2023 8:47 AM EDT 5 mLs topiramate (Topamax) tablet 25 mg 25 mg, [...] 0831 (Given - Provider: Elke Laughlin, EDWARD) atorvastatin (Lipitor) tablet 10 mg 10 mg, Oral, EVERY EVENING, First dose on Thu06/09/23 at 1700, Until Discontinued, Routine 1738 (Given - Provider: lE Denney RN) diazePAM (Valium) tablet 2 mg [...] area)1708 (MAR Unhold - Provider: Admin Adt) 0831 (Given [...] 0831 (Given - Provider: Elke Laughlin RN) sodium chloride 0.9 % (flush) (BD [...] 0831 (Given - Provider: Elke Laughlin, EDWARD) Continuous Medication Order 06/08/2023 06/09/2023 06/10/2023 sodium [...] ordered pain medications are indicated., Routine 1409 (MAR Hold - Provider: Admin Adt - Reason: Transfer to a Procedural area)1708 (MAR Unhold - Provider: Admin Adt) acetaminophen (Tylenol) suppository 650 mg(Linked Group 1) 650 mg, Rectal, EVERY 6 HOURS PRN, Starting on Thu06/09/23 at 0831, Until Thu06/10/23 at 1541, Pain, mild pain (1-3), Maximum dose of acetaminophen is 4,000 mg from all sources in 24 hours. When ordered for pain, acetaminophen should be given even when other ordered pain medications are indicated., Routine 1409 (MAR Hold - Provider: Admin Adt - Reason: Transfer to a Procedural area)1708 ([facility] Unhold - Provider: Admin Adt) acetaminophen [...] ordered pain medications are indicated., Routine 1409 (MAR Hold - Provider: Admin Adt - [...] labetaloL ineffective after 2 doses, Routine 1409 (APR Hold - Provider: Admin Adt - Reason: Transfer to a Procedural area)1708 ([facility] Unhold - Provider: Admin Adt) hydrOXYzine [...] remains greater than 160 mmHg., Routine 1409 (APR Hold - Provider: Admin Adt - Reason: Transfer to a Procedural area)1708 ([facility] Unhold - Provider: Admin Adt) lidocaine (Xylocaine) [...] first, prochlorperazine second, and metoclopramide third. 1409 (APR Hold - Provider: Admin Adt - Reason: Transfer to a Procedural area)1708 ([facility] Unhold - Provider: Admin Adt) ondansetron ODT (Zofran-ODT) disintegrating tablet 4 mg(Linked Group 2) 4 mg, Oral, EVERY 8 HOURS PRN, Starting on Thu06/09/23 at 0831, Until Thu06/10/23 at 1541, Nausea, May repeat in 30 minutes if ineffective. If multiple antiemetics are ordered, use ondansetron first, prochlorperazine second, and metaclopramide third., Routine 1409 (APR Hold - Provider: Admin Adt - Reason: Transfer to a Procedural area)1708 (APR Unhold - Provider: Admin Adt) oxyCODONE (Roxicodone) tablet 5 mg 5 mg, Oral, EVERY 6 HOURS PRN, Starting on Thu06/09/23 at 0831, Until Thu06/10/23 at 1541, Pain, Routine 1409 (APR Hold - Provider: Admin Adt - Reason: Transfer to a Procedural area)1708 (APR Unhold - Provider: Admin Adt) sodium chloride [...] third. documented in this encounter Care Teams Air Shovel Operator Relationship Specialty Start Date End Date Peter Lebron PA [address] [place] [address] PCP - General Internal Medicine 08/21/22 documented as of this encounter
--- OUTSIDE RECORDS SUMMARY | 2024-02-29 15:47 | XMS_ITS | Encounter Summary ---
Author Organization [facility] Address [facility] [place] [address] Care Team Providers Care Java Developer Name Role Phone Peter Lebron Primary Care Provider Encounter Details Date Type Department Care Team (Late st Contact Info) Description 06/06/2023 12:10 AM EDT Ancillary Procedure Radiology Library at [facility] [place] [phone] Rhoda Jimenez MD [facility] [place] [address] Social History Tobacco Use Types Packs/Day Years Used Date Smoking Tobacco: Never Smokeless Tobacco: Never Alcohol Use Standard Drinks/Week Comments No 0 (1 standard drink = 0.6 oz pur e alcohol) [facility] Inpatient Questions Answer Date Recorded Does Anyone [...] Diagnosis Comments FILM LIBRARY STORAGE ONLY CT HEAD Routine 06/06/2023 12:10 AM EDT documented in this encounter Results * Film Library- Storage Only CT Head (06/06/2023 12:10 AM EDT) Narrative RAD - 06/08/2023 2:05 PM EDT This exam is auto-finalizing. It's purpose is for storage only. Rhoda Jimenez MD G FILM LIBRARY ORD ERABLES Performing Organization Address City/State/[facility] Co de Phone Number [place], [place] documented in this encounter Visit Diagnoses Not on filedocumented in this encounter Care Teams Java Developer Relationship Specialty Start Date End Date Peter Lebron PA [address] [place] [address] PCP - General Internal Medicine 08/21/22 documented as of this encounter
--- OUTSIDE RECORDS SUMMARY | 2024-02-29 15:47 | XMS_ITS | Encounter Summary ---
Author Organization [facility] Address [facility] [place] [address] Care Team Providers Care Plant Control Aide Name Role Phone Peter Lebron Primary Care Provider Encounter Details Date Type Department Care Team (Late st Contact Info) Description 06/06/2023 12:05 AM EDT Ancillary Procedure Radiology Library at [facility] [place] [place] [phone] Rhoda Jimenez MD [facility] [place] [address] Social History Tobacco Use Types Packs/Day Years Used Date Smoking Tobacco: Never Smokeless Tobacco: Never Alcohol Use Standard Drinks/Week Comments No 0 (1 standard drink = 0.6 oz pur e alcohol) [facility] Inpatient Questions Answer Date Recorded Does Anyone [...] Diagnosis Comments FILM LIBRARY STORAGE ONLY CT ABDOMEN AND PELVIS Routine 06/06/2023 12:05 AM EDT documented in this encounter Results * Film Library- Storage Only CT Abdomen & Pelvis (06/06/2023 12:05 AM EDT) Narrative HAIM ALVAREZ - 06/08/2023 2:05 PM EDT This exam is auto-finalizing. It's purpose is for storage only. Rhoda Jimenez MD IMG FILM LIBRARY ORD ERABLES [place], [place] documented in this encounter Visit Diagnoses Not on filedocumented in this encounter Care Teams Plant Control Aide Relationship Specialty Start Date End Date Peter Lebron PA [address] [place] [address] PCP - General Internal Medicine 08/21/22 documented as of this encounter
--- OUTSIDE RECORDS SUMMARY | 2024-02-29 15:47 | XMS_ITS | Encounter Summary ---
Author Organization [facility] [address] Care Team Providers Care Grinder Lap Name Role Phone Peter Lebron Primary Care Provider [phone] Encounter Details Date Type Department Care Team (Late st Contact Info) Description 09/12/2022 [place] [address] Jose Rafael Kline RN Social History Tobacco Use Types Packs/Day Years Used Date Smoking Tobacco: Never Smokeless Tobacco: Never Alcohol Use Standard Drinks/Week Comments No 0 (1 standard drink = 0.6 oz pur e alcohol) [facility] Inpatient Questions Answer Date Recorded Does Anyone [...] encounter Miscellaneous Notes * Telephone Encounter - Aria Cohn - 09/15/2022 11:09 AM EDT RN, XR shunt series in eDH for you to review and advise. Thank you, Fany * Telephone Encounter - Aria Cohn - 09/15/2022 10:16 AM EDT Sent request for XR shunt series to [facility]. IB RN once imaging in eDH. * Telephone Encounter - Jose Rafael Kline RN - 09/12/2022 4:06 PM EDT Copied from [facility] #[id number]. Topic: Specialty Dept CRMs - Triage >> Sep 12, 2022 3:12 PM Stoney Rodriguez wrote: Triage Message Specialist: Cl Atkins Relationship (if other than patient-full name): Patient Symptom: Head pain on the side of his head where the shunt was placed. Has patient experienced symptom before yes If patient has experienced symptom before, when was the last time this occurred Is patient currently having symptom yes When did symptom begin the pain started 2 weeks ago Additional Comments: Please contact patient to discuss further. I spoke with Ever. He continues to have headaches. He also developed a throbbing pain on the side ofhis head. This started today. He is taking ibuprofen and a rizatriptan (only once so far) Neither one seems to be working anymore. Headache seems to be worse when he lays down. No nausea or vomiting. He has had a lack of appetite for a few days now. No changes in vision. He feels off balance when he is walking. More tired than usual. More forgetful than usual. XR shunt series at [facility] today. Will request images. Discussed that I would request XR for review. Provided after hours number to call if symptoms worsen over the weekend. Attempted call, unable to leave message documented in this encounter Plan of Treatment Not on file documented as of this encounter Visit Diagnoses Not on filedocumented in this encounter Care Teams Grinder Lap Relationship Specialty Start Date End Date Peter Lebron PA [address] [place] [address] PCP - General Internal Medicine 08/21/22 documented as of this encounter
--- OUTSIDE RECORDS SUMMARY | 2024-02-29 15:47 | XMS_ITS | Encounter Summary ---
Author Organization [facility] [place] [address] Care Team Providers Care Psychosocial Rehabilitation Counselor Name Role Phone Peter Lebron Primary Care Provider [phone] Encounter Details Date Type Department Care Team (Late st Contact Info) Description 06/06/2023 Ancillary Procedure Radiology Library at [facility] [place] [id number] Rhoda Jimenez MD [facility] [place] [address] Social History Tobacco Use Types Packs/Day Years Used Date Smoking Tobacco: Never Smokeless Tobacco: Never Alcohol Use Standard Drinks/Week Comments No 0 (1 standard drink = 0.6 oz pur e alcohol) [facility] Inpatient Questions Answer Date Recorded Does Anyone [...] Diagnosis Comments FILM LIBRARY STORAGE ONLY DX SKULL Routine 06/06/2023 12:00 AM EDT documented in this encounter Results * Film Library- Storage Only DX Skull (06/06/2023 12:00 AM EDT) Narrative RAD - 06/08/2023 2:04 PM EDT This exam is auto-finalizing. It's purpose is for storage only. Rhoda Jimenez MD [facility] FILM LIBRARY ORD ERABLES Performing Organization Address City/State/[facility] Co de Phone Number [place], [place] documented in this encounter Visit Diagnoses Not on filedocumented in this encounter Care Teams Psychosocial Rehabilitation Counselor Relationship Specialty Start Date End Date Peter Lebron PA [address] [place] [address] PCP - General Internal Medicine 08/21/22 documented as of this encounter
--- OUTSIDE RECORDS SUMMARY | 2024-02-29 15:47 | XMS_ITS | Encounter Summary ---
Author Organization [facility] [place] [address] Care Team Providers Care Case Consultant Name Role Phone Peter Lebron Primary Care Provider Reason for Referral * Consultation (Routine) - Closed Specialty Diagnoses / Procedures Referred By Contac t Referred To Contact Diagnoses Chronic intractable headache, unspecified headache type Cl Atkins PA [facility] [place] [address] Neurology, [address] [place] [address] Referral ID Status Reason Start Date Expiration Date V isits Requested Visits Authorized [id number] Closed Consult, Test & Treat 09/09/2022 03/08/2023 1 1 Encounter Details Date Type Department Care Team (Late st Contact Info) Description 09/08/2022 1:40 PM EDT Office Visit Neurosurgery at [facility] [place] [address] Cl Atkins PA [facility] [place] [address] Chronic intractable headache, unspecified headache type Social [...] Sign Reading Time Taken Comments Blood Pressure 125/78 09/08/2022 1:22 PM EDT Pulse 89 09/08/2022 1:22 PM EDT Temperature 36.4 ??C (97.6 ??F) 09/08/2022 1:22 PM ED T Respiratory Rate 16 09/08/2022 1:22 PM EDT Oxygen Saturation 94% 09/08/2022 1:22 PM EDT Inhaled Oxygen Concentration - - Weight 94.6 kg (208 lb 9.6 oz) 09/08/2022 1:22 P M EDT Height 167.6 cm (5' 6) 09/08/2022 1:22 PM EDT Body Mass Index 33.67 09/08/2022 1:22 PM EDT documented in this encounter Progress Notes * Cl Atkins PA - 09/08/2022 1:40 PM EDT Name: Chapin Costa : 1970 PCP: MARVA Gordon REF: Irma Gates Date of Service: 09/08/2022 CHIEF COMPLAINT: s/p VPS revision HISTORY: Chapin Costa presents in FU 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 He reports constant daily headache, fatigue, and memory loss similar to prior to shunt revision surgery. Complained of similar symptoms three weeks ago with persistent leukocytosis and elevated markers of inflammation which had been present since April. He was admitted to hospital for shunt tap andfurther work up and treatment. CSF analysis was unremarkable. No evidence of MANAGER PEST infection. Neurology was consulted, however headache resolved spontaneously. PHYSICAL EXAM: BP 125/78 (BP Location (NBP): Right arm, Patient Position: Sitting, BP Cuff Sizes: Large Adult (32-43 cm)) Pulse 89 Temp 36.4 ??C (97.6 ??F) (Temporal) Resp 16 Ht 167.6 cm (5' 6) Wt 94.6 kg (208 lb 9.6 oz) SpO2 94% BMI 33.67 kg/m?? . Chapin Costa is a 51 y.o. male in no cardiorespiratory distress. Awake and alert. Answers questions, follows commands, and converses appropriately. Speech clear and fluid. Good phonation. BHATIA well. Cranial incision is well healed. No erythema or swelling overlying shunt valve site. IMAGING & OTHER RESULTS: CT head wo contrast 09/09/2022 FINDINGS: Ventricles/extra-axial spaces : Ventricles are decompressed [...] shunt reservoir is similar compared to prior. IMPRESSION Stable decompressed ventricular system. Stable focal prominence of the right lateral ventricular horn. ASSESSMENT & PLAN: 51 yo M s/p VSP revision No post op complications Continues to have headaches CT head today stable compared to 08/19 and vents slightly diminished compared to prior to VPS revision No evidence of MANAGER PEST infection Reviewed with Dr. Jimenez No operative indications at this time Will make a referral to headache clinic Cl Atkins PA-C, [place] Physician Traffic Warehouse Supervisor Section of Neurosurgery [place] [phone] documented in this encounter Plan of Treatment Scheduled Referrals Name Type Priority Associated Diagnoses Orde r Schedule Referral to Neurology Outpatient Referral Routine Chronic intractable headache, unspecified headache type Ordered: 09/09/2022 documented as of this encounter Visit Diagnoses Diagnosis Chronic intractable headache, unspecified headache type documented in this encounter Care Teams Case Consultant Relationship Specialty Start Date End Date Peter Lebron PA [address] [facility] [address] [place] [address] PCP - General Internal Medicine 08/21/22 documented as of this encounter
--- OUTSIDE RECORDS SUMMARY | 2024-02-29 15:47 | XMS_ITS | Encounter Summary ---
Author Organization [facility] Address [facility] [place] [address] Care Team Providers Care Seal Mixing Operator Name Role Phone Peter Lebron Primary Care Provider [phone] Reason for Visit * Reason Onset Date Comments Other 09/11/2022 Encounter Details Date Type Department Care Team (Late st Contact Info) Description 09/11/2022 Telephone Neurosurgery at [facility] [place] [id number] Cl Atkins PA [facility] [place] [address] Other Social History Tobacco Use Types Packs/Day Years Used Date Smoking Tobacco: Never Smokeless Tobacco: Never Alcohol Use Standard Drinks/Week Comments No 0 (1 standard drink = 0.6 oz pur e alcohol) [facility] Inpatient Questions Answer Date Recorded Does Anyone [...] Notes * Telephone Encounter - Aria Cohn R - 09/18/2022 12:22 PM EDT Cl XR shunt series in eDH for you to review. Thank you, Fany * Telephone Encounter - Aria Cohn - 09/18/2022 11:31 AM EDT Sent 2nd request for Shunt Series Xray to [facility] Send IB Message to Wilbert to review Xray Shunt series once uploaded in edh * Telephone Encounter - Aria Cohn - 09/16/2022 10:52 AM EDT Sent request for Shunt Series Xray to [facility] Send IB Message to Wilbert to review Xray Shunt series once uploaded in edh * Telephone Encounter - Bell Kuhn - 09/11/2022 10:05 AM EDT Called pt scheduled 10/13 CT and Wilbert Faxed Referral to [facility] Neurology [phone] Faxed Shunt Series Xray order to [facility] Send IB Message to Wilbert to review Xray Shunt series once uploaded in edh ~~~~~~~~~~~~~~~~~~~~~~~~~~~~~~~~~~~~~~~~~~~~~~ ----- Message ----- From: Cl Atkins PA Sent: 09/10/2022 2:32 PM EDT To: [facility] [place] Please fax referral for shunt series to [facility] and push images CT head at and follow up in 3-4 weeks Thank you, Ever documented in this encounter Plan of Treatment Not on file documented as of this encounter Visit Diagnoses Not on filedocumented in this encounter Care Teams Seal Mixing Operator Relationship Specialty Start Date End Date Peter Lebron PA [address] [place] [address] PCP - General Internal Medicine 08/21/22 documented as of this encounter
--- OUTSIDE RECORDS SUMMARY | 2024-02-29 15:47 | XMS_ITS | Encounter Summary ---
Author [facility] [place] [address] Care Team Providers Care Mainframe Architect Name Role Phone Peter Lebron Primary Care Provider Encounter Details Date Type Department Care Team (Late st Contact Info) Description 06/08/2023 [place] [phone] Beryl Horn RN Social History Tobacco Use Types Packs/Day Years Used Date Smoking Tobacco: Never Smokeless Tobacco: Never Alcohol Use Standard Drinks/Week Comments No 0 (1 standard drink = 0.6 oz pur e alcohol) [facility] Utilities Answer Date Recorded In the past 12 months has e [employer], gas, oil, or water [employer] threatened to shut off services in your [...] place to sleep or slept in a assisted (including now)? No 06/09/2023 IPV Inpatient Questions Answer Date Recorded Does [...] * Telephone Encounter - Bell Kuhn - 06/08/2023 3:43 PM EDT Pt called [facility] unable to Transfer to Nurse line. Instructed pt to go to the ER per Cl Atkins for evaluation. Pt is coming to ER. * Telephone Encounter - Kandi Brody RN - 06/08/2023 2:39 PM EDT Copied from [facility] #[id number]. Topic: Specialty Dept CRMs - Triage >> Jun 08, 2023 9:58 AM Ella Rondon wrote: Triage Message Specialist: Cl Atkins PA Relationship (if other than patient-full name): Tracy Symptom: upper right abdomen pain, Has patient experienced symptom before ongoing If patient has experienced symptom before, when was the last time this occurred ongoing Is patient currently having symptom yes When did symptom begin June 05 Additional Comments: patient went to [facility], there is where there is a break in the shunt, patient is still in pain, very uncomfortable, and was told to follow up with Neurosurgery. >> Jun 08, 2023 1:31 PM Ella Rondon wrote: Tracy Fregoso, Legal Guardian calling in asking if she should take patient to the ER? Call by Beryl Horn RN 155pm Spoke to Ever who went to [facility] ED on Thursday with sharp abdominal pain6-8/10. Progressively getting worse since last week. Taking advil with no relief. ED ordered CT that showed broken shunt tubing in abdomen and told him to follow-up with neurosurgery. Feeling noticeably fatigued since the same time last week and a headache came about the same time as well but that resolved on its own. * Telephone Encounter - Kandi Brody RN - 06/08/2023 2:37 PM EDT Copied from [facility] #[id number]. Topic: Specialty Dept CRMs - Triage >> Jun 08, 2023 9:58 AM Ella Rondon wrote: Triage Message Specialist: Cl Atkins PA Relationship (if other than patient-full name): Tracy Symptom: upper right abdomen pain, Has patient experienced symptom before ongoing If patient has experienced symptom before, when was the last time this occurred ongoing Is patient currently having symptom yes When did symptom begin June 05 Additional Comments: patient went to [facility], there is where there is a break in the shunt, patient is still in pain, very uncomfortable, and was told to follow up with Neurosurgery. >> Jun 08, 2023 1:31 PM Ella Rondon wrote: Tracy Fregoso Legal Guardian calling in asking if she should take patient to the ER? * Telephone Encounter - Kandi Brody RN - 06/08/2023 2:05 PM EDT Copied from [facility] #[id number]. Topic: Specialty Dept CRMs - Appointment Needed >> Jun 08, 2023 12:29 PM Karolyn Rondon wrote: Appt Needed Specialist Rhoda Jimenez MD Relationship (if other than patient-full name): Tracy guardian Appt. Type Needed: Other Reason for Visit: Tracy, Guardian of patient , is calling to state that the patient was seen in their local ER over the weekend and was told after his CT that his shunt tube is broke in his abdomenand needs to be repaired KARLA. Tracy stated that the patient is in even more pain today and wouldlike a call karal. Please call to advise. >> Jun 08, 2023 12:43 PM Aria Yates wrote: RN, Please triage and advise. Thank you. Fany * Telephone Encounter - Beryl Horn RN - 06/08/2023 1:46 PM EDT Spoke to Ever who went to [facility] ED on Thursday with sharp abdominal pain6-10/02. Progressively getting worse since last week. Taking advil with no relief. ED ordered CT that showed broken shunt tubing in abdomen and told him to follow-up with neurosurgery. Feeling noticeably fatigued since the same time last week and a headache came about the same time as well but that resolved on its own. documented in this encounter Plan of Treatment Not on file documented as of this encounter Visit Diagnoses Not on filedocumented in this encounter Care Teams Mainframe Architect Relationship Specialty Start Date End Date Peter Lebron PA [address] [place] [address] PCP - General Internal Medicine 08/21/22 documented as of this encounter
--- OUTSIDE RECORDS SUMMARY | 2024-02-29 15:47 | XMS_ITS | Encounter Summary ---
Author Organization [facility] Address [facility] [place] [address] Care Team Providers Care Chief Ii Dispatcher Name Role Phone Peter Lebron Primary Care Provider [phone] Encounter Details Date Type Department Care Team (Latest Contact Info) Description 09/08/2022 Travel Social History Tobacco Use Types Packs/Day [...] on filedocumented in this encounter Care Teams Chief Ii Dispatcher Relationship Specialty Start Date End Date Peter Lebron PA [address] [place], [place] [id number] PCP - General Internal Medicine 08/21/22 documented as of this encounter
--- OUTSIDE RECORDS SUMMARY | 2024-02-29 15:48 | XMS_ITS | Encounter Summary ---
[place] [address] Care Team Providers Care Photographic Equipment Mechanic Name Role Phone JoséIrma vicente LIZA Primary Care Provider [phone] Reason for Referral * Diagnostic Test (Routine) - Closed Specialty Diagnoses / Procedures Referred By Mansi t Referred To Contact Radiology Diagnoses S/P ORGANIZATIONAL CONSULTANT shunt Procedures CT Head wo Contrast (Generic) Laila Ricci MD [facility] [place] [address] [place] [address] [facility] [place] [address] Referral ID Status Reason Start Date Expiration Date V isits Requested Visits Authorized [id number] Closed Specialty Service Requested 05/25/2022 11/24/2023 1 1 Reason for Visit * Reason Comments Headache Shunt problem * Auth/Cert (Routine) Specialty Diagnoses / Procedures Referred By Mansi t Referred To Contact Diagnoses Congenital hydrocephalus Chronic intractable headache, unspecified headache type Rhoda Jimenez MD [facility] [place] [address] [place] [address] [facility] Referral ID Status Reason Start Date Expiration Date Visits Re quested Visits Authorized [id number] 1 1 Encounter Details Date Type Department Care Team (Latest Contact Info) Description 05/23/2022 7:45 PM EDT - 05/25/2022 2:30 PM EDT Hospital Encounter Neurosciences and ENT Unit Level [address] [place] [address] Ray Olivia MD [facility] [address] Rhoda Jimenez MD [facility] [place] [address] Chronic intractable headache, unspecified headache type; Congenital hydrocephalus; Seizures; S/P ORGANIZATIONAL CONSULTANT shunt Discharge Disposition: Home Social History Tobacco Use Types Packs/Day Years Used Date Smoking Tobacco: Never Smokeless Tobacco: Never Alcohol Use Standard Drinks/Week Comments No 0 (1 standard drink = 0.6 oz pur e alcohol) Sex and Gender Information Value Date Recorded Sex Assigned at Male 10/11/2020 1:38 PM EDT Gender Identity Male 01/18/2020 8:12 PM EST Sexual Orientation Straight 10/11/2020 1: 38 PM EDT documented as of this encounter Last Filed Vital Signs Vital Sign Reading Time Taken Comments Blood Pressure 120/68 05/25/2022 7:43 AM EDT Pulse 86 05/25/2022 7:43 AM EDT Temperature 36.3 ??C (97.3 ??F) 05/25/2022 7:43 AM ED T Respiratory Rate 18 05/25/2022 7:43 AM EDT Oxygen Saturation 93% 05/25/2022 7:43 AM EDT Inhaled Oxygen Concentration - - Weight 88.5 kg (195 lb 1.7 oz) 05/23/2022 7:49 P M EDT Height 167.6 cm (5' 5.98) 05/23/2022 7:49 PM ED T Body Mass Index 31.51 05/23/2022 7:49 PM EDT documented in this encounter Discharge Summaries * Richard Valles MD - 05/24/2022 10:03 PM EDT Patient Name: Chapin Costa Patient Age: 51 y.o. Admit date: 05/23/2022 Discharge Date and Time: 05/25/2022 Attending Physician: Rhoda Jimenez MD Discharging Provider: Richard Valles MD Discharging Service: NEUROSURGERY Operations/Major Procedures: 05/24: VPS tap 05/24, Dr. Jimenez: VPS revision (nonfunctioning valve s/p replacement with Hakim @ 80 same as preop setting; proximal and distal catheters patent) Active Hospital Problems: Active Hospital Problems Diagnosis ??? Congenital hydrocephalus Resolved Hospital Problems No resolved problems to display. Active Non Hospital Problems: Active Non-Hospital Problems Diagnosis ??? Hydrocephalus ??? Seizures ??? Cervicalgia ??? Headache ??? Persistent headaches ??? S/P ORGANIZATIONAL CONSULTANT shunt History of Presentation: Per review of relevant records: Chapin Costa is a 51 y.o. 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 ?? Patient presents today with his mother, who helps to give some of his childhood history. She tells me his initial shunt was done as an infant but since than (she says from the age of about 5-16 years) he has had countless malfunctions and 3 total infections requiring revisions and hardware exchanges (she recalls 40-50 surgeries). They report that most recent shunt revision/surgery was roughtly 10-15 years ago and that all of his surgeries were done here at [facility]. Our electronic records date backto roughly 2017 but do not record any of these specifically - Mom unable to recall name of surgeon. ?? 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 Last time shunt accessed was in 2020for a shunt tap to assess proximal flow of the system which at that time was intact, NM study then was also reassuring (all done as part of workup for headaches. He underwent on MRI of the knee in March of this year as well and afterward shunt was reprogrammed/checked by Ness Vance in our clinic, confirmed at prior setting of [id number] (has not previously tolerated changes to valve in the pastper chart review. ?? Ever describes his current symptoms to me as primarily headache that is generalized, similar in quality to his usual headaches but more severe and lasting constantly for a week now without improvementon his normal medications. Mom feels that he has certainly been more lethargic which is very unlikehim. Ever endorses subjective fevers and lack of appetite as well but denies nausea or emesis. He has also noticed over the past few days tenderness behind his ear over the shunt valve. Not on any APAC. Hospital Course: Chapin Costa underwent the aforementioned procedure on 05/23/2022. He tolerated the procedurewell and there were no reported intraoperative complications. Patient has remained neurologically and hemodynamically stable during the hospitalization. Patient was deemed safe for discharge home. Onthe day of discharge he is tolerating a regular diet, ambulating, voiding spontaneously, and his pain is controlled with oral medications. Patient will be discharged with opioid pain medication for acute pain. Safety education regarding opioids was provided and an opioid consent was signed. Important Studies and Lab Data: Labs: Lab Results Component Value Date/Time WBC 18.2 (H) 05/25/2022 12:38 AM HGB 16.0 05/25/2022 12:38 AM HCT 46.7 05/25/2022 12:38 AM PLATELET 275 05/25/2022 12:38 AM NA 135 05/25/2022 12:38 AM K 4.3 05/25/2022 12:38 AM CL 101 05/25/2022 12:38 AM CO2 21 (L) 05/25/2022 12:38 AM BUN 16 05/25/2022 12:38 AM CREATININE 1.07 05/25/2022 12:38 AM Studies: CT Head wo Contrast (Generic) Result Date: 05/24/2022 EXAMINATION: CT HEAD WO CONTRAST (GENERIC) CLINICAL HISTORY: Hydrocephalus, Status post VPS revision (valve changed only) TECHNIQUE: CT Head was performed without contrast COMPARISON: CT head 05/23/2022 FINDINGS: Right-sided craniotomy changes. Right frontal approach shunt catheter tip is unchanged in position. There is subcutaneous air about the bowel revision site. Similar caliber of the ventricles and unchanged foci of tissue loss in the region of the right caudate nucleus. Similar right parietal hypoattenuation. Angel-white differentiation is preserved. There is no acute intracranial hemorrhage. The otomastoid spaces are clear. Visualized paranasal sinuses are essentially clear. Similar caliber and contour of the ventricles compared to most recent exam. Thank you for letting us participate in the care of this patient. If you are a health care provider and have any questions regarding this report, please contact the number below. For patients who have questions please contact the health acute care clinical nurse specialist that requested your imaging first. Head wo Contrast (Generic) Result Date: 05/23/2022 EXAMINATION: CT HEAD WO CONTRAST (GENERIC) CLINICAL HISTORY: ORGANIZATIONAL CONSULTANT shunt w/ worsening headaches since Thursday, c/f obstruction/poor drainage TECHNIQUE: CT head performed without intravenous contrast administration. COMPARISON: CT head without contrast 12/07/2019. FINDINGS: Right frontal approach shunt catheter in unchanged position. Angel-white interface appears well differentiated. Slightly prominenthypodensity adjacent to the frontal horn of the right lateral ventricle likely represents gliosis or chronic microvascular disease. Unchanged appearance of the ventricles. Basal cisterns are patent. No global mass effect, midline shift, herniation, large space-occupying process appreciated. No acute intracranial hemorrhage. Orbits: Normal Included paranasal sinuses: Clear. Mastoid air cells: Clear. Osseous structures: Extracranial soft tissues: Changes related to prior right craniotomy. No hydrocephalus or acute intracranial abnormality. Thank you for letting us participate in the care of this patient. If you are a health care provider and have any questions regarding this report, please contact the number below. For patients who have questions please contact the health acute care clinical nurse specialist that requested your imaging first. Shunt Series Result Date: 05/23/2022 EXAMINATION: XR SHUNT SERIES CLINICAL HISTORY: New ALICEA, tenderness over shunt behind ear, vision changes TECHNIQUE: AP and lateral views of the skull, chest, and abdomen. Total 7 images COMPARISON: XRshunt series 01/14/2017. CT head 05/23/2022. FINDINGS: Right frontal approach ORGANIZATIONAL CONSULTANT shunt catheter without evidence of fracture or kinking terminates in the left upper quadrant of the abdomen. Mild cinching of the catheter at the level of C5 vertebral body on lateral view. Suboptimal visualization of the catheter on lateral views of the chest. Fibrotic changes along the catheter at multiple sites. SKULL: Changes of prior right craniotomy. Patient is edentulous. No air-fluid levels in the paranasal sinuses are mastoid air cells. Intact osseous structures. CHEST: Trachea, mainstem bronchi, cardiomediastinal silhouette, tabby, and pulmonary vascular markings are within normal limits. No focal airspace opacity, pleural effusion or pneumothorax. Unremarkable osseous structures. ABDOMEN: Nonobstructive bowel gas pattern. Cholecystectomy clips. A metallic clip projects over the left abdomen. Unremarkable osseous structures. * Right frontal approach ORGANIZATIONAL CONSULTANT shunt catheter. * No fracture or kinking is evident. * Mild cinching ofthe catheter at the level of C5 vertebral body on lateral view. Consider functional assessment. Thank you for letting us participate in the care of this patient. If you are a health care provider andhave any questions regarding this report, please contact the number below. For patients who have questions please contact the health acute care clinical nurse specialist that requested your imaging first. Skull (Generic) Result Date: 05/24/2022 EXAMINATION: XR SKULL (GENERIC) CLINICAL HISTORY: s/p VPS revision (valve changed only). PLS INCLUDE ONE XR PARALLEL TO VALVE TO CONFIRM SETTING. TECHNIQUE: Right lateral view skull COMPARISON: Skullradiograph 01/19/2017 FINDINGS: Proximal tip of the shunt catheter projects in the region of the lat eral ventricles. Few small cortical defects in the parietal calvarium noted. Codman Hakim programmable valve setting appears to be set at 80 mm of water. Programmable shunt setting, as above. Thank you for letting us participate in the care of this patient. If you are a health care provider and have any questions regarding this report, please contact the number below. For patients who have questions please contact the health acute care clinical nurse specialist that requested your imaging first. DOC: TELEMETRY STRIPS Result Date: 05/24/2022 Ordered by an unspecified provider. Pending Studies and Lab Data: The patient will need the following 4 tests completed on: 05/23/2022 1. Fungus culture Cerebrospinal Fluid 3. VZV PCR, CSF 2. Blood culture 4. Duplex Study for DVT, Bilat legs Diagnosis: Congenital hydrocephalus (Q03.9) Authorizing Provider: Rhoda Jimenez MD Discharge Condition: Stable Discharge to: Home Future Appointments and Orders Future Orders Complete By Expires CT Head wo Contrast (Generic) [[id number] Custom] 06/23/2022 12/23/2022 Process Instructions: Scheduling Instructions: Questions: Clinical information / miramontes questions for radiologist: Where will study be performed?: [facility] Radiology Stat read required?: Does patient require sedation?: GA rationale: Date of injury if applicable: Discharge Medications: Your Medications New Medications Dose Details polyethylene glycoL 17 gram oral powder packet Commonly known as: Miralax Take 17 g by mouth daily as needed. 17 g Quantity: 14 each Refills: 0 Continued medications with new dosing Dose Details oxyCODONE 5 mg tablet Commonly known as: Roxicodone Take 1-2 tablets by mouth every 4 hours as needed for Pain (moderate pain (4-6)). What changed: ?? how much to take ?? reasons to take this 5-10 mg Quantity: 5 tablet Refills: 0 Continued medications, unchanged Dose Details acetaminophen 500 mg tablet Commonly known as: Tylenol Take 500 mg by mouth every 6 hours as needed. T 500 mg Refills: 0 Aimovig Autoinjector 70 mg/mL Atin Inject 70 mg as directed every 30 days. On the of every month Generic drug: erenumab-aooe 70 mg Refills: 0 benztropine 0.5 mg tablet Commonly known as: Cogentin Take 1 tablet by mouth nightly. 1 tablet Refills: 0 Latuda 40 mg tablet Take 40 mg by mouth every evening. Generic drug: lurasidone 40 mg Refills: 0 levothyroxine 25 mcg tablet Commonly known as: Synthroid Take 25 mcg by mouth daily. 25 mcg Refills: 0 metoprolol succinate XL 25 mg ER 24 hr tablet Commonly known as: Toprol-XL Take 25 mg by mouth daily. 25 mg Refills: 0 rizatriptan 10 mg tablet Commonly [...] every 14 days. 250 mg Refills: 0 STOPPED Medications acetaZOLAMIDE 250 mg tablet Commonly known as: Diamox amitriptyline 25 mg tablet Commonly known as: Elavil gabapentin 100 mg capsule Commonly known as: Neurontin gemfibroziL 600 mg tablet Commonly known as: Lopid ibuprofen 600 mg tablet Commonly known as: Advil ketoconazole 2 % Crea Commonly known as: Nizoral loratadine 10 mg Tab Commonly known as: Claritin meloxicam 15 mg tablet Commonly known as: Mobic risperiDONE 0.5 mg tablet Commonly known as: RisperDAL sucralfate 1 gram tablet Commonly known as: Carafate tiZANidine 2 mg tablet Commonly known as: Zanaflex UNREVIEWED medications - Discuss With Your Provider Dose Details topiramate 25 mg tablet Commonly known as: Topamax Take 1 tablet by mouth 2 times daily. 25 mg Quantity: 60 tablet Refills: 5 Updated Allergies/ADRs: Allergies Allergen Reactions ??? Latex Other reaction(s): hives with latex powdered gloves ??? Penicillins ??? Tegaderm [Transparent Dressings] Itching ??? Vancomycin Analogues ??? Vancomycin Hcl Follow-up Recommendations for Providers: Please have the patient follow-up with Neurosurgery clinic in 4-6 weeks. Incision: Follow up for suture removal in 3 weeks 06/14/22 with PCP or Neurosurgery clinic. Imaging: CT Head Outpatient referrals: No referrals at this time. No referral phone numbers needed. Additional medical concerns, should be brought to PCP. Instructions Given to Patient at Discharge: Patient [...] to pass. These medications can be obtained [id number] and their use is recommended on an [...] shoveling, etc.) until cleared byyour surgical team. FOLLOW UP PLAN: Incision: [] Your sutures are absorbable and do not need to be removed. [x] Please follow up for suture/staple removal in 3 weeks with your Primary Care Provider or with the Neurosurgery BILLING CHECKER/RN. Due 06/14. Appointments: [x] Please follow up in the Neurosurgery Clinic in 4-6 weeks. Please call the Neurosurgery Office at [phone] if you do not receive a scheduled appointment within two weeks. Your follow-up appointment will be with: [] Dr. Diaz [x] Dr. Jimenez [] Dr. Calloway [] Dr. Bellamy [] Dr. Figueroa [] Dr. Almanza [] Dr. Colon [] Dr. Oviedo [] Associate Provider Imaging: [] No Imaging required at follow-up. [x] Head CT [] XR Shunt series HOW TO REACH NEUROSURGERY Office Hours: Thursday through Thursday, 8am-5pm. Call . On weekends or after office hours: Call [phone] and ask the hydrotel operator to page the Neurosurgery Resident insulation cutter and former. IMPORTANT PHONE NUMBERS: Inpatient Nurses Neurosurgical Resident On-Call (after 5pm or before 8am) Neurosurgery offices (Thursday through Thursday between 8am-5pm): Adult Neurosurgery Dr. Andrew Colon Pediatric Neurosurgery Dr. Cl Figueroa Associate Providers Vanessa Pedroza, Nurse Practitioner Cl Atkins, Physician Roll Operator Beto Ham, Nurse Practitioner Mini Corbett, Nurse Practitioner Essie Izaguirre, Nurse Practitioner Sonia Cevallos, Nurse Practitioner * Your surgeon may not be low raw sugar cutter, so be ready to tell about yourself and your surgery when you call, especially after hours or on the weekend. Richard Valles MD 05/25/2022 9:14 AM [facility] Neurosurgery NSGY Inpatient Pager: #[phone] documented in this encounter Discharge Instructions * Patient Instructions* Laila Ricci MD - 05/24/2022 10:03 PM EDT VENTRICULOPERITONEAL SHUNT DISCHARGE INSTRUCTIONS PRESCRIPTION [...] to pass. These medications can be obtained [id number] and their use is recommended on an [...] shoveling, etc.) until cleared byyour surgical team. FOLLOW UP PLAN: Incision: [] Your sutures are absorbable and do not need to be removed. [x] Please follow up for suture/staple removal in 3 weeks with your Primary Care Provider or with the Neurosurgery BILLING CHECKER/RN. Due 06/14. Appointments: [x] Please follow up in the Neurosurgery Clinic in 4-6 weeks. Please call the Neurosurgery Office at [phone] if you do not receive a scheduled appointment within two weeks. Your follow-up appointment will be with: [] Dr. Diaz [x] Dr. Jimenez [] Dr. Calloway [] Dr. Bellamy [] Dr. Figueroa [] Dr. Almanza [] Dr. Colon [] Dr. Oviedo [] Associate Provider Imaging: [] No Imaging required at follow-up. [x] Head CT [] XR Shunt series documented in this encounter Medications at Time of Discharge Medication Sig Dispensed Refills Start Date End Date Aimovig Autoinjector 70 mg/mL Auto-Injector Inject 70 [...] 09/24/2023 oxyCODONE (Roxicodone) 5 mg tablet Take 1-2 tablets by mouth every 4 hours as needed for Pain (moderate pain (4-6)). 5 tablet 05/25/2022 05/26/2022 polyethylene glycoL (Miralax) 17 gram oral powder [...] as of this encounter Progress Notes * Ray De La Garza RN - 05/25/2022 2:17 PM EDT Chapin Costa discharged to Home by private car with Family member. All belongings sent with patient. ADAM removed, incision healing well, no significant drainage, no dehiscence, no significant erythema, skin free from pressure ulcers. Discharge instructions, medications, and follow-up appointments reviewed, education provided on site care, all questions answered. Patient instructed to call with concerns. Blood pressure 120/68, pulse 86, temperature 36.3 ??C (97.3 ??F), temperature source Oral, resp. rate 18, height 167.6 cm (5' 5.98), weight 88.5 kg (195 lb 1.7 oz), SpO2 93 %. on RA * Laila Ricci MD - 05/25/2022 6:18 AM EDT NEUROSURGERY PROGRESS NOTE PLEASE PAGE [phone] WITH QUESTIONS ID: Chapin Costa is a 51 y.o. 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 HD 1 POD 1 Day Post-Op 05/24: VPS tap 05/24, Dr. Jimenez: VPS revision (nonfunctioning valve s/p replacement with Hakim @ 80 same as preop setting; proximal and distal catheters patent) INTERVAL HX/ROS: CTH and skull XR done CSF Cx remains negative, blood cx pending WBC 18.2 from 16.4, afebrile Feels ALICEA is much improved and not painful to look up anymore Tolerating PO and voiding EXAM: GEN:NAD NEURO: AA+Ox3 Speech fluent and appropriate. PERRL. Dysconjugate gaze (R exotropia, baseline) No facial asymmetry Tongue midline MOTOR: RUE:5/5 LUE:5/5 RLE: 5/5 LLE: 5/5 No pronator drift LT sensation intact x 4 Dressing CDI (nylon in place) IMAGING: CTH post op Stable ventricles XR skull Valve at 80 as intended A/P: Chapin Costa is a 51 y.o. male with a PMHx significant for congenital hydrocephalus 2/2aqueductal stenosis (initial VPS at 2mo of age, s/p several revisions, currently Codman Hakim set at [id number]), depression, pseudoseizures, and chronic headaches presenting for one week of refractory h eadache, lethargy, and subjective fevers concerning for shunt malfunction s/p VPS tap (CSF studies negative). Now s/p VPS revision (nonfunctioning valve s/p replacement with Hakim @ 80 same as preop setting; proximal and distal catheters patent). Doing well post op. -Q4H neuro checks -BP control, keep SBP 90-160 -F/u cultures -DVT ppx with SCDs, hold antiplatelets/anticoagulants -Regular diet -Pain control -Activity as tolerated -DISPOSITION: pending course -FULL CODE Please page [phone] with questions/concerns for in-house NSGY patients MEDICATIONS: Scheduled Meds: ??? benztropine 0.5 mg Oral Daily ??? levothyroxine 25 mcg Oral Daily ??? sertraline 100 mg Oral Daily ??? ceFAZolin 1 g Intravenous Q8H ??? lurasidone 20 mg Oral Nightly ??? melatonin 6 mg Oral Nightly Continuous Infusions: PRN Meds: acetaminophen OR acetaminophen OR acetaminophen, oxyCODONE OR oxyCODONE, labetaloL, hydrALAZINE, polyethylene glycoL, bisacodyl EC, bisacodyL, ondansetron ODT OR ondansetron, prochlorperazine OR prochlorperazine, BUpivacaine-EPINEPHrine, bacitracin zinc-polymyxin B, lid ocaine Vitals: Temp: [35.7 ??C (96.3 ??F)-36.9 ??C (98.4 ??F)] Heart Rate: [76-111] Resp: [12-29] BP: (110-153)/(65-101) SpO2: [89 %-98 %] Heart Rate from SpO2: [86 bpm-111 bpm] BMI: Weight: 88.5 kg (195 lb 1.7 oz) (05/23/221948) BMI (Calculated): 31.5 BMI Classification: Obese I/O: I/O last 3 completed shifts: In: 504 [I.V.:500; IV Piggyback:4] Out: 5 [Blood:5] LABS: Recent Labs 04/04/178 05/23/222031 WBC 18.2* 16.4* HGB 16.0 17.2* PLATELET 275 279 Recent Labs 05/25/22 0038 05/23/222031 NA 135 138 K 4.3 4.5 CL 101 100 CO2 * 23 BUN 16 14 CREATININE 1.07 0.95 Recent Labs 05/24/22 0220 PT 12.1 INR 1.1 Active Hospital Problems Diagnosis ??? Congenital hydrocephalus Resolved Hospital Problems No resolved problems to display. Active Non-Hospital Problems Diagnosis ??? Hydrocephalus ??? Seizures ??? Cervicalgia ??? Headache ??? Persistent headaches ??? S/P ORGANIZATIONAL CONSULTANT shunt Laila Ricci MD 05/25/2022 * Meghan Bartlett RN - 05/25/2022 6:16 AM EDT Patient DSD to surgical site behind R ear is c/d/i. * Megahn Bartlett RN - 05/25/2022 5:30 AM EDT Patient denies needing pain meds, provider assessed patient at bedside. * Main Trevino MD - 05/24/2022 3:06 PM EDT NEUROSURGERY PROGRESS NOTE PLEASE PAGE [phone] WITH QUESTIONS ID: Chapin Costa is a 51 y.o. 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 05/24: VPS tap 05/24, Dr. Jimenez: VPS revision (nonfunctioning valve s/p replacement with Hakim @ 80 same as preop setting; proximal and distal catheters patent) INTERVAL HX/ROS: Post op check CTH and XR skull completed EXAM: GEN:NAD NEURO: AA+Ox3 Speech fluent and appropriate. Naming and repetition intact. PERRL. Dysconjugate gaze (R exotropia, baseline) No facial asymmetry Tongue midline MOTOR: RUE:5/5 LUE:5/5 RLE: 5/5 LLE: 5/5 No pronator drift LT sensation intact x 4 Dressing CDI (nylon in place) IMAGING: CTH post op Stable ventricles XR skull Valve at 80 as intended A/P: Chapin Costa is a 51 y.o. 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 Now s/p VPS revision (nonfunctioning valve s/p replacement with Hakim @ 80 same as preop setting; proximal and distal catheters patent). Doing well post op. -Q4H neuro checks -BP control, keep SBP 90-160 -DVT ppx with SCDs, hold antiplatelets/anticoagulants -Regular diet -Pain control -Activity as tolerated -DISPOSITION: pending course -FULL CODE Please page [phone] with questions/concerns for in-house NSGY patients MEDICATIONS: Scheduled Meds: ??? benztropine 0.5 mg Oral Daily ??? lurasidone 40 mg Oral Nightly ??? levothyroxine 25 mcg Oral Daily ??? sertraline 100 mg Oral Daily ??? magnesium oxide 400 mg Oral BID ??? ceFAZolin 1 g Intravenous Q8H Continuous Infusions: PRN Meds: acetaminophen OR acetaminophen OR acetaminophen, oxyCODONE OR oxyCODONE, labetaloL, hydrALAZINE, polyethylene glycoL, bisacodyl EC, bisacodyL, ondansetron ODT OR ondansetron, prochlorperazine OR prochlorperazine, BUpivacaine-EPINEPHrine, bacitracin zinc-polymyxin B Vitals: Temp: [35.7 ??C (96.3 ??F)-36.9 ??C (98.4 ??F)] Heart Rate: [76-109] Resp: [12-29] BP: (110-162)/(69-106) SpO2: [89 %-98 %] Heart Rate from SpO2: [94 bpm-111 bpm] BMI: Weight: 88.5 kg (195 lb 1.7 oz) (05/23/221948) BMI (Calculated): 31.5 BMI Classification: Obese I/O: No intake/output data recorded. LABS: Recent Labs 05/23/222031 WBC 16.4* HGB 17.2* PLATELET 279 Recent Labs 05/23/222031 NA 138 K 4.5 CL 100 CO2 23 BUN 14 CREATININE 0.95 Recent Labs 05/24/22 0220 PT 12.1 INR 1.1 Active Hospital Problems Diagnosis ??? Congenital hydrocephalus Resolved Hospital Problems No resolved problems to display. Active Non-Hospital Problems Diagnosis ??? Hydrocephalus ??? Seizures ??? Cervicalgia ??? Headache ??? Persistent headaches ??? S/P ORGANIZATIONAL CONSULTANT shunt Main Trevino MD 05/24/2022 * Ray De La Garza RN - 05/24/2022 2:45 PM EDT Chapin Costa arrived to 503B @ 1420 from PACU. AOx4, not in apparent distress. Oriented to room, call shell within reach, educated on importance of using prior to getting OOB, AVSS, incision nosignificant drainage, no significant erythema, belongings updated in eDH, bed locked in low position, purposeful hourly rounding, bed/chair alarm on. Blood pressure 147/79, pulse (!) 111, temperature 36.9 ??C (98.4 ??F), temperature source Oral, resp. rate 19, height 167.6 cm (5' 5.98), weight 88.5 kg (195 lb 1.7 oz), SpO2 94 %. on RA 1700 RN paged [phone] req throat lozenge or hurricane spray - pt w/ c/o sore throat since surgery. No new orders/waiting on response. * Yoli Gu RN - 05/24/2022 11:20 AM EDT Pt to PACU via bed from OR; monitors applied, alarms set and audible. HOB up 30. See neuro assess. VSS, comfortable. 1200: Sitting up in bed. Tylenol given for incisional discomfort. 1230: Pt to CT and Xray. 1300: Pt's Mother in to bedside. Lunch ordered for pt. * Laila Ricci MD - 05/24/2022 6:11 AM EDT NEUROSURGERY PROGRESS NOTE PLEASE PAGE [phone] WITH QUESTIONS ID: Chapin Costa is a 51 y.o. 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 HD# 0 POD # NA INTERVAL HX/ROS: No acute events reported overnight. Shunt tap overnight, CSF studies benign so far Remains afebrile and HDS EXAM: GEN:NAD sitting up in stretcher, pleasant and wide awake NEURO:AA+Ox3 Speech fluent and appropriate. Naming and repetition intact. PERRL. EOMI. Pain with upgaze. Baseline R exotropia. No facial asymmetry Tongue midline MOTOR: RUE:5/5 LUE:5/5 RLE: 5/5 LLE: 5/5 No pronator drift LT sensation intact x 4 R frontal incision extending behind ear with scarring, mild dehiscence superiorly, dry exudate, red/boggy over shunt valve A/P: Chapin Costa is a 51 y.o. male with a PMHx significant for congenital hydrocephalus 2/2aqueductal stenosis (initial VPS at 2mo of age, s/p several revisions, currently Codman Hakim set at [id number]), depression, pseudoseizures, and chronic headaches presenting for one week of refractory h eadache, lethargy, and subjective fevers concerning for shunt malfunction. CSF studies benign thus far with negative gram stain. ESR 35, CRP 10. Patient is NPO with tentativeplan for OR, likely will need shunt exploration. -Q2H neuro checks -BP control, keep SBP 90-160 -DVT ppx with SCDs, hold antiplatelets/anticoagulants -NPO with IVF -Pain control -Shunt tap at bedside, f/u cultures and gram stain -OR planning -Holding abx for now -Basic labs, ESR/CRP -Activity as tolerated -DISPOSITION: pending course -FULL CODE Please page [phone] with questions/concerns for in-house NSGY patients IMAGING: Results for orders placed or performed during the hospital encounter of 05/23/22 CT Head wo Contrast (Generic) (Exam End: 05/23/2022 8:56 PM) Impression No hydrocephalus or acute intracranial abnormality. Thank you for letting us participate in the care of this patient. If you are a health care provider and have any questions regarding this report, please contact the number below. For patients who have questions please contact the health acute care clinical nurse specialist that requested your imaging first. Shunt Series (Exam End: 05/23/2022 9:51 PM) Impression * Right frontal approach ORGANIZATIONAL CONSULTANT shunt catheter. * No fracture or kinking is evident. * Mild cinching of the catheter at the level of C5 vertebral body on lateral view. Consider functional assessment. Thank you for letting us participate in the care of this patient. If you are a health care provider and have any questions regarding this report, please contact the number below. For patients who have questions please contact the health acute care clinical nurse specialist that requested your imaging first. CATIONS: Scheduled Meds: ??? benztropine 0.5 mg Oral Daily ??? lurasidone 40 mg Oral Nightly ??? levothyroxine 25 mcg Oral Daily ??? sertraline 100 mg Oral Daily ??? magnesium oxide 400 mg Oral BID ??? acetaminophen 1,000 mg Oral Once Continuous Infusions: ??? sodium chloride 0.9% infusion 100 mL/hr Intravenous Continuous ### PRN Meds: acetaminophen OR acetaminophen OR acetaminophen, oxyCODONE OR oxyCODONE, labetaloL, hydrALAZINE, polyethylene glycoL, bisacodyl EC, bisacodyL, ondansetron ODT OR ondansetron, prochlorperazine OR prochlorperazine Vitals: Temp: [36.1 ??C (96.9 ??F)] Heart Rate: [87-105] Resp: [17-26] BP: (112-162)/(69-106) SpO2: [90 %-98 %] Heart Rate from SpO2: -- BMI: Weight: 88.5 kg (195 lb 1.7 oz) (05/23/22 1949) BMI (Calculated): 31.5 BMI Classification: Obese I/O: No intake/output data recorded. LABS: Recent Labs 05/23/222031 WBC 16.4* HGB 17.2* PLATELET 279 Recent Labs 05/23/222031 NA 138 K 4.5 CL 100 CO2 23 BUN 14 CREATININE 0.95 Recent Labs 05/24/22 0220 PT 12.1 INR 1.1 Active Hospital Problems Diagnosis ??? Congenital hydrocephalus Resolved Hospital Problems No resolved problems to display. Active Non-Hospital Problems Diagnosis ??? Hydrocephalus ??? Seizures ??? Cervicalgia ??? Headache ??? Persistent headaches ??? S/P ORGANIZATIONAL CONSULTANT shunt Laila Ricci MD 05/24/2022 documented in this encounter H&P Notes * Laila Ricci MD - 05/24/2022 1:33 AM EDT [facility] NEUROSURGERY H&P Date: 05/24/2022 ID: Chapin Jarrod Costa, 51 y.o. male : 1970 Admission Date: 05/23/2022 PCP: Irma Gates APRN CC/Reason for consult: shunt malfunction History of Present Illness: Chapin Costa is a 51 y.o. 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 Patient presents today with his mother, who helps to give some of his childhood history. She tells me his initial shunt was done as an infant but since than (she says from the age of about 5-16 years) he has had countless malfunctions and 3 total infections requiring revisions and hardware exchanges (she recalls 40-50 surgeries). They report that most recent shunt revision/surgery was roughtly 10-15 years ago and that all of his surgeries were done here at [facility]. Our electronic records date backto roughly 2016 but do not record any of these specifically - Mom unable to recall name of surgeon. 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 Last time shunt accessed was in 2020for a shunt tap to assess proximal flow of the system which at that time was intact, NM study then was also reassuring (all done as part of workup for headaches. He underwent on MRI of the knee in March of this year as well and afterward shunt was reprogrammed/checked by Ness Vance in our clinic, confirmed at prior setting of [id number] (has not previously tolerated changes to valve in the pastper chart review. Ever describes his current symptoms to me as primarily headache that is generalized, similar in quality to his usual headaches but more severe and lasting constantly for a week now without improvementon his normal medications. Mom feels that he has certainly been more lethargic which is very unlikehim. Ever endorses subjective fevers and lack of appetite as well but denies nausea or emesis. He has also noticed over the past few days tenderness behind his ear over the shunt valve. Not on any APAC. Past Medical History: Past Medical History: Diagnosis Date ??? Depression ??? Hearing loss r ear ??? Hydrocephalus associated with congenital aqueduct stenosis ??? Hyperlipidemia ??? Hypertension ??? Memory disorder ??? Seizures ??? Syncope and collapse ??? Vision abnormalities related to hydrocephalus Patient Active Problem List Diagnosis Code ??? S/P ORGANIZATIONAL CONSULTANT shunt Z98.2 ??? Persistent headaches R51.9 ??? Headache R51.9 ??? Cervicalgia M54.2 ??? Seizures R56.9 ??? Hydrocephalus G91.9 Past Surgical History: Past Surgical History: Procedure Laterality Date ??? CARPAL TUNNEL RELEASE Right ??? CHOLECYSTECTOMY, LAPAROSCOPIC ??? PRO ALVEOLOPLASTY W EXTRACTIONS, 4 OR MORE TEETH, PER QUADRANT N/A 10/18/2020 ALVEOPLASTY,IN CONJUNCTION WITH EXTRACTIONS,PER QUADRANT,ENT (WRVU 4.06) performed by Shan Rivero MD at [facility] ??? PRO EXTRACTION ERUPTED TOOTH/EXR N/A 10/18/2020 EXTRACTION, ERUPTED TOOTH OR EXPOSED ROOT (WRVU 0.62) performed by Shan Rivero MD at [facility] ??? PRO IMPACT TOOTH REM BONY W/COMP N/A 10/18/2020 SURGICAL EXTRACTIONS, REMOVAL OF IMPACTED TOOTH, COMPLETELY BONY WITH UNUSUAL SURGICAL COMPLICATIONS (WRVU 2.91) performed by Shan Rivero MD at [facility] ??? PRO IMPACT TOOTH REMOV COMP BONY N/A 10/18/2020 SURGICAL EXTRACTIONS, REMOVAL OF IMPACTED TOOTH, COMPLETELY BONY (WRVU 1.93) performed by Shan Rivero MD at [facility] ??? PRO REMOVAL ERUPTED TOOTH WITH ELEVATION OF MUCOPERIOSTEAL FLAP Bilateral 10/18/2020 SURGICAL EXTRACTIONS REQUIRING ELEVATION OF MUCOPERIOSTEAL FLAP AND REMOVAL OF BONE OR SECTION OF TOOTH (WRVU 1.09) performed by Shan Rivero MD at [facility] ??? SHOULDER SURGERY ??? ULNAR TUNNEL RELEASE Right ??? VENTRICULOPERITONEAL SHUNT Multiple revisions - ~46 prior revisions Medications: No current facility-administered medications on file prior to encounter. Current Outpatient Medications on File Prior to Encounter Medication Sig Dispense Refill ??? oxyCODONE (Roxicodone) 5 mg Tablet Take 1 tablet by mouth every 4 hours as needed for Pain. 12 tablet 0 ??? acetaZOLAMIDE (Diamox) 250 mg Tablet Take 1 tablet by mouth 2 times daily. (Patient not taking:Reported on 04/30/2020) 28 tablet 0 ??? loratadine (Claritin) 10 mg Tablet daily. ??? ketoconazole (NIZORAL) 2 % Cream as needed. ??? tiZANidine (Zanaflex) 2 mg Tablet Take 1-2 tablets by mouth 2 times daily as needed. Do not drink alcohol with tizanidine. Do not drive or operate heavy machinery while taking tizanidine. (Patient not taking: Reported on 09/06/2020) 60 tablet 1 ??? benztropine (Cogentin) 0.5 mg Tablet 1 tablet daily. ??? ibuprofen (Advil;Motrin) 600 mg Tablet TK 1 T PO Q 8 H PRF PAIN ??? acetaminophen (Tylenol) 500 mg Tablet TK 1 T PO Q 6 H PRF PAIN ??? Latuda 40 mg Tablet 1 tablet nightly. ??? meloxicam (MOBIC) 15 mg Tablet as needed. ??? risperiDONE (RisperDAL) 0.5 mg Tablet TK 1 T PO HS ??? sucralfate (Carafate) 1 gram Tablet 1 tablet 4 times daily. ??? rizatriptan (MAXALT) 10 mg Tablet Take 1 tablet by mouth as needed for Migraine. 10 tablet 0 ??? metoprolol succinate XL (Toprol-XL) 25 mg Tablet Sustained Release 24 hr Take 25 mg by mouth daily. ??? topiramate (TOPAMAX) 25 mg Tablet Take 1 tablet by mouth 2 times daily. 60 tablet 5 ??? amitriptyline (ELAVIL) 25 mg Tablet Take 100 mg by mouth nightly. ??? gabapentin (NEURONTIN) 100 mg Capsule 100 mg AM/ 200 mg HS (Patient taking differently: 2 timesdaily. 100 mg AM/ 100mg HS) 90 capsule 3 ??? levothyroxine (SYNTHROID) 25 mcg Tablet Take 25 mcg by mouth daily. ??? sertraline (ZOLOFT) 100 mg Tablet Take 100 mg by mouth daily. 0 ??? testosterone cypionate (DEPOTESTOSTERONE CYPIONATE) 200 mg/mL Oil Inject into the muscle every 14 days. 0 ??? gemfibrozil (LOPID) 600 mg Tablet Take 600 mg by mouth 2 times daily (before meals). Scheduled Meds: ??? ibuprofen 800 mg Oral Once ??? acetaminophen 1,000 mg Oral Once Continuous Infusions: PRN Meds: Allergies: Allergies Allergen Reactions ??? Latex Other reaction(s): hives with latex powdered gloves ??? Penicillins ??? Tegaderm [Transparent Dressings] Itching ??? Vancomycin Analogues ??? Vancomycin Hcl Social History: Social History Socioeconomic History ??? Marital status: Spouse name: Not on file ??? Number of children: Not on file ??? Years of education: Not on file ??? Highest education level: Not on file Occupational History ??? Not on file Tobacco Use ??? Smoking status: Never ??? Smokeless tobacco: Never Vaping Use ??? Vaping Use: Never used Substance and Sexual Activity ??? Alcohol use: No ??? Drug use: No ??? Sexual activity: Not on file Other Topics Concern ??? Not on file Social History Narrative ??? Not on file Social Determinants of Health Financial Resource Strain: Not on file Food Insecurity: Not on file Transportation Needs: Not on file Physical Activity: Not on file Housing Stability: Not on file Family History: Family History Problem Relation Age of Onset ??? Muscular Dystrophy Cousin Review of Systems: Please see HPI for pertinent details. 12 point ROS is otherwise negative. Vital Signs: Visit Vitals BP 121/77 Pulse 89 Temp 36.1 ??C (96.9 ??F) (Temporal) Resp 19 Ht 167.6 cm (5' 5.98) Wt 88.5 kg (195 lb 1.7 oz) SpO2 92% BMI 31.51 kg/m?? Physical Exam: General: NAD. Sitting up in stretcher, pleasant and cooperative. HEENT: Atraumatic, scalp appears somewhat dirty near prior incision. There is a candy cane shaped incision over entry point in R frontal region with a portion of the incision that appears to be very slightly dehisced without any drainage expressible. There is also erythematous and boggy tissue surrounding the shunt valve but no open incision at this level. Neck supple, trachea midline, shunt catheter palpable in R neck. Cardiovascular: Regular rate and rhythm. Respiratory: Normal inspiratory effort on RA. Abdomen: Soft, non-tender, non-distended. Extremities: WWP. Neurological: Mental Status/Cognitive: GCS 15 (Motor 6 - Follows commands; Verbal 5 - Fluent; Eyes 4 - Eyes open spontaneously) Awake, alert, oriented x 3. Speech: Fluent, appropriate. Naming and repetition intact. Cranial Nerves: PERRL CN II: Visual acuity and tony grossly intact. CN III, IV, : EOMI. Baseline R eye exophthalmos. Pain/ALICEA with upgaze. CN V: Sensation intact in V1, 2 and 3 distributions. CN VII: No facial asymmetry/droop. Edentulous. CN VIII: Intact hearing bilaterally to voice. CN IX, X: Palate and uvula rise in the midline. CN XI: Trapezius strength 5/5 bilaterally. CN XII: Tongue protrudes in the midline direction. Tone: Normal/appropriate, symmetric. Motor: No upper extremity drift. Full strength in all extremities. Reflexes: No hyperreflexia Ansari's: none Clonus: none Gait: Not assessed Sensation: Intact in C5-T1 dermatomes in bilateral upper extremities. Intact in L2-S1 dermatomes in bilateral lower extremities. Cerebellar: No dysmetria. No intention tremor. Labs: Recent Labs 05/23/222031 WBC 16.4* HGB 17.2* PLATELET 279 Recent Labs 05/23/222031 NA 138 K 4.5 CL 100 CO2 23 BUN 14 CREATININE 0.95 GLUCOSE 98 No results for input(s): PT, INR in the last 72 hours. No results for input(s): AST, ALT, BILITOT, ALKPHOS, ALB, PROT, LIPASE, AMYLASE in the last 72 hours. Imaging: CTH: Right frontal approach shunt catheter in unchanged position. Angel-white interface appears well differentiated. Slightly prominent hypodensity adjacent to the frontal horn of the right lateral ventricle likely represents gliosis or chronic microvascular disease. Unchanged appearance of the ventricles. Basal cisterns are patent. No global mass effect, midline shift, herniation, large space-occupying process appreciated. No acute intracranial hemorrhage. XRSS: * Right frontal approach ORGANIZATIONAL CONSULTANT shunt catheter. * No fracture or kinking is evident. * Mild cinching of the catheter at the level of C5 vertebral body on lateral view. Consider functional assessment. Imaging independently reviewed. Assessment: Chapin Costa is a 51 y.o. 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 Exam is currently reassuring as patient is wide awake and alert, at his baseline. CTH shows very subtle increase in ventricular caliber compared with prior imaging dating back to 2004 which all show slit ventricles. XRSS not revealing of any particular disconnection but catheter at level of mid cervical region appears to be somewhat cinched compared with prior studies, not completely kinked. Confirmed radiographically shunt setting of [id number]. Patient's symptoms are at this time somewhat concerning for a malfunction or perhaps infection based on his mother's recounting of prior shunt infections from long ago (typically does not present floridly hydrocephalic, has been more indolent presentation). The more concerning finding on exam however is the appearance of the incision and surroundingskin at the level of the shunt valve. Discussed that it is very likely Ever is having another shunt malfunction, but the question is whether there is an infection present. In order to help answer this question, I recommended a shunt tap which Ever and his mother agreed to and was done at the bedside. Will follow up these CSF studies to assess further whether there could be infection present. Explained that at this point with radiographic and clinical findings it is likely we will at least have to go to the OR for a shunt exploration;however, if infection is present we discussed possible need for externalization of the system and/or EVD to facilitate complete treatment which would then need to be followed by replacement of system at a later date. They know at this point will need some more information to decide the best path forward but in the interim will admit to NSGY service and keep NPO with tentative plan for OR. Problem List: Shunt malfunction Plan/Recommendations: -Admit to NSGY Dr. Jimenez -Q2H neuro checks -BP control, keep SBP 90-160 -DVT ppx with SCDs, hold antiplatelets/anticoagulants -NPO with IVF -Pain control -Shunt tap at bedside, f/u cultures and gram stain -OR planning -Holding abx for now -Basic labs, ESR/CRP -Activity as tolerated Today's plan of care was discussed with attending neurosurgeon, Rhoda Jimenez MD. Laila Ricci MD 05/24/2022 12:11 AM [facility] Neurosurgery Inpatient Pager: [phone] Personal Pager: [phone] There are no hospital problems to display for this patient. Active Non-Hospital Problems Diagnosis ??? Hydrocephalus ORGANIZATIONAL CONSULTANT shunt placed for congenital aqueductal stenosis, has [...] CT and plain films every 2 years ??? Seizures ??? Cervicalgia ??? Headache ??? Persistent headaches ??? S/P ORGANIZATIONAL CONSULTANT shunt Codman Hakim valve. Setting 80. Associated attestation - Rhoda Jimenez MD - 05/24/2022 11:22 AM EDT I have seen and examined the patient, providing miramontes components as outlined below. I have reviewed the resident???s note; my evaluation of the patient is below: 51 y.o. gentleman with history of shunted hydrocephalus last revised 2004 who presents with increased lethargy, headache and CT with slightly dilated ventricles consistent with shunt malfunction. On exam he is awake, alert and oriented x 3. His pupils are equal and reactive and his extraocular motions are intact. No upgaze limitation. Skin over the shunt is intact. His belly is soft and benign. His shunt was tapped with good proximal flow, CSF was negative on gram stain. We will take him to theOR for shunt exploration and possible revision. His mother was present for this discussion and agrees with the plan. documented in this encounter Procedure Notes * Laila Ricci MD - 05/24/2022 2:01 AM EDT [facility] NEUROSURGERY ORGANIZATIONAL CONSULTANT SHUNT TAP NOTE Date: 05/24/22 Patient: Chapin Costa : 1970 There is concern for shunt malfunction/infection. Discussed with Dr. Jimenez, who agreed it was reasonable to proceed. Pt seen and examined in ED. Discussed risks and benefits of shunt tap with patient, including risk of introducing new infection which would require shunt revision/explantation in the future. All questions answered, patient wished to proceed. Informed consent obtained. No history of antiplatelets or anticoagulants. VPS located in R frontal region. Small amount of hair shaved with clippers. Cleaned with chlorhexidine x3 and draped in usual sterile manner. Sterile gloves used with 23G butterfly needle. Codman Hakim reservoir identified. Clear appearing CSF aspirated after 1 attempt. A total of 6cc of CSF was collected and sent for CSF studies. Band-Aid placed over site of needle insertion. Patient tolerated procedure well. Plan: -F/u CSF studies Laila Ricci MD 05/24/22 2:02 AM documented in this encounter ED Notes * Skye Cohn RN - 05/24/2022 8:33 AM EDT Patient transported to main OR via hospital bed. All belongings with patient. Patient and VS stableat handoff of care. * Derek Monson MD - 05/24/2022 12:05 AM EDT ED Resident Note HPI: Chapin Costa is a 51 y.o. male with a past medical history significant for congenital aqueductal stenosis status post ORGANIZATIONAL CONSULTANT shunt over 40 years ago (patient has had multiple revisions to this shunt over the years), intractable headaches well controlled on Aimovig who presents to the Emergency Department with a 4-day history of worsening headache, and temperature to 99 throughout the week; presenting from urgent care where he was noted to have an elevated white blood cell count and was sent to emergency department for evaluation. History obtained from the patient as well as his caregiver, his mother. Patient states that he does not have any recent trauma to his head, has not had a headache like this in over a year. He states that the head began while he was not doing any activity, he describes it as a dull, holocephalic, 6/10 discomfort. He reports he is particularly tender over the track of his ORGANIZATIONAL CONSULTANT shunt behind his right ear. He has not had any nausea, vomiting. Patient additionally states that he has had some new floaters in his vision associated with this since Thursday. Patient last had a shunt revision approximate 10 years ago according to his mother. Also per the patient's mother, the patient has had numerous ORGANIZATIONAL CONSULTANT shunt infections throughout his life. ROS as per HPI Vitals: ED Triage Vitals [05/23/221948] BP: (!) 145/104 Heart Rate: 97 Resp: 20 Temp: 36.1 ??C (96.9 ??F) Temp src: Temporal SpO2: 98 % O2 Device: RA O2 Flow Rate (L/min): n/a Physical Exam Constitutional: Comments: Patient lying in bed, no acute distress HENT: Head: Comments: Atraumatic head, bilateral divots at the top of the cranium. Tenderness to palpation posterior to the right ear, w/ mild erythema and eczema overlying. Mouth/Throat: Comments: Endentulous, mucous membranes pink, moist, no oropharyngeal erythema or edema. Eyes: Comments: Baseline strabismus of the right eye, no abnormal extraocular movements, conjunctiva normal, no exudates, no injection. Pupils equal round and reactive to light Neck: Comments: Full range of motion without pain, no rigidity, no crepitus, no spinous process tenderness, no muscular tenderness. Cardiovascular: Comments: Regular rate and rhythm, no murmurs, rubs, gallops Pulmonary: Comments: Clear to auscultation bilaterally, no wheezes, rhonchi, no rales. Abdominal: Comments: Soft, nontender, nondistended, bowel sounds present and normal. Neurological: Mental Status: He is alert and oriented to person, place, and time. GCS: GCS eye subscore is 4. GCS verbal subscore is 5. GCS motor subscore is 6. Sensory: Sensation is intact. Motor: Motor function is intact. ED Course: I have reviewed labs and imaging, images and available reports, and they are significant for: XR Shunt Series Final Result * Right frontal approach ORGANIZATIONAL CONSULTANT shunt catheter. * No fracture or kinking is evident. * Mild cinching of the catheter at the level of C5 vertebral body on lateral view. Consider functional assessment. Thank you for letting us participate in the care of this patient. If you are a health care provider and have any questions regarding this report, please contact the number below. For patients who have questions please contact the health acute care clinical nurse specialist that requested your imaging first. Head wo Contrast (Generic) Final Result No hydrocephalus or acute intracranial abnormality. Thank you for letting us participate in the care of this patient. If you are a health care provider and have any questions regarding this report, please contact the number below. For patients who have questions please contact the health acute care clinical nurse specialist that requested your imaging first. Procedures Assessment and Plan: 51 y.o. 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 Patient arrives in the emergency department with new headache after being well controlled with prior treatment. Patient has a history that is complex with his ORGANIZATIONAL CONSULTANT shunt, concerning for infection/obstruction given his history and in combination with this new headache. Lending to the idea that the patient may be infected is that he has a elevated white blood cell count of 16, but he does not have any fevers, chills. Patient is also reporting some vision changes with floaters, concerned that this may represent increased intracranial pressure. Obtaining head CT to evaluate for signs of increased intracranial pressure such as ventriculomegaly, also obtaining a shunt series to evaluate for the fidelity of the patient's ORGANIZATIONAL CONSULTANT shunt. Head CT without evidence of ventriculomegaly, ORGANIZATIONAL CONSULTANT shunt without signs of kink but does show some mild cinching at the C5 vertebral level. Given the tenderness overlying the patient's shunt, has elevated white blood cell count, and his new headaches, consulted with neurosurgery to evaluate the patient for his above symptoms. After evaluation, neurosurgery concerned that he may have a infection or other shunt malfunction. Patient will be admitted to the neurosurgery service for further work-up of his symptoms. The visit findings, diagnosis, and care plan were discussed with the patient. Derek Monson MD Resident 05/24/22 0207 Associated attestation - Ray Olivia MD - 05/27/2022 6:57 AM EDT ED ATTENDING ATTESTATION The patient [...] this case involve critical care? No * Ray Olivia MD - 05/23/2022 11:13 PM EDT ED Attending Brief Note The patient was seen in conjunction with the resident physician. I have independently performed thekey portions of the history and physical exam. I have reviewed the diagnostic studies including labs, imaging studies and EKGs. I have discussed the details of the case with the resident. Brief Summary: 51 y.o. 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 He does have chronic headaches but this is more persistent and severe and holoacranial. He was seen at urgent care and had an elevated white blood cell count so was referred to the emergency department. He was also noted to have negative COVID and strep testing at urgent care a couple of weeks ago. Tmax at home has been 99.7 no new neurologicsymptoms. He reports tenderness over the site of his right posterior auricular shunt. She will be seen by neurosurgery. History by patient and mother Offered Tylenol or ibuprofen Did this case involve critical care? No Ray Olivia MD 05/23/222319 documented in this encounter Miscellaneous Notes * Plan of Care - Meghan Bartlett, RN - 05/24/2022 9:05 PM EDT OUTCOME EVALUATION NOTE: OUTCOME SUMMARY: Patient is aox4, 5/5 strength x4, dsd intact to surgical site behind R ear. Patient refuses pain meds. PLAN MOVING FORWARD: Home when stable INDIVIDUALIZED FALL PREVENTION INTERVENTIONS: Patient-specific fall risk factors per assessment: recent surgery Assistance: , SBA, Supervision: Arms reach, Surveillance: Bed locked in low position, call shell within reach, purposeful hourly rounding, clutter free environment, bed/chair alarm on, Patient-specific fall prevention interventions for sensory deficits provided: Yes bed alarm CPG GOAL OUTCOME EVALUATION: Continue care plan as documented. * Consult Note - Jens Boyd, [facility] - 05/24/2022 4:35 PM EDT TelePharmacy Home Medication List Update for Medication Reconciliation 05/24/22 4:35 PM Chapin Costa 1970 Allergies Allergen Reactions ??? Latex Other reaction(s): hives with latex powdered gloves ??? Penicillins ??? Tegaderm [Transparent Dressings] Itching ??? Vancomycin Analogues ??? Vancomycin Hcl ??? Person Interviewed: patient ??? Quality of Interview/accuracy of medication list: good ??? Sources used to compile medication list: [x] Epic medication list [x] SureScripts [] PCP/Specialist list [] Retail pharmacy [] Patient list [] MAR [] Other ??? Changes made to home medication list: o Additions: - Amovig 70 mg/mL once monthly o Deletions: - Acetazolamide 25 mg bid - Amitriptyline 100 mg nightly - Gabapentin 100 mg bid - Gemfibrozil 600 mg bid - Ketoconazole 2% cream - Loratadine 10 mg daily - Meloxicam 15 mg daily - Oxycodone 5 mg q4h prn - Risperidone 0.5 mg qhs - surcralfate 1 g qid - Tizanidine 2 mg o Changes: - Topiramate 25 mg daily - Latudta 40 mg QHS - Testosterone 250 mg X5Obpxi (last dose 05/13/22) ??? Additional Notes: o Patient was recently (within the last month) prescribed the following medications, but denies taking them. - Aripiprazole 10 mg and 2 mg tabs daily - Atorvastatin 10 mg daily - Vitamin D3 2000 UI daily - Cyanocobalamin 5000 mcg SubQ - Hydroxyzine 25 mg ??? Recommended changes: o none The home medication list is now updated to the best of my knowledge and is ready to be reconciled by the provider. Please contact the TelePharmacy Medication Reconciliation Pharmacist at for any questions. Jens Boyd RPH * Op Note - Rhoda Jimenez MD - 05/24/2022 11:23 AM EDT [place] Operative Note Patient Name: Chapin Costa : [id number] MR#: [id number] Case Date: 05/24/2022 Surgeon: Surgeon(s) and Role: * Rhoda Jimenez MD - Primary * Main Trevino MD - Resident Preoperative diagnosis: SHunt malfunction Postoperative diagnosis: SHunt malfunction Procedure(s) (LRB): EXPLORATION VENTRICULO-PERITONEAL SHUNT (WRVU 25.48) (Right) MODIFIER, AXIEM, SHUNT (Right) Findings: Good proximal flow, good distal flow past the valve. Pinhole in the valve chamber and no flow through the valve. Anesthesia: General Estimated Blood Loss: 5 mL Specimens removed during surgery: None Drains: NOne Surgical Closure: Primary Closure - skin incision [...] to this patient.) Chapin Costa is a 51-year-old gentleman with history of shunted hydrocephalus since . He has had multiple shunt revisions, most recently in 2004. He comes to the emergency department withpersistent refractory headache, and lethargy concerning for trauma function. A head CT demonstratedmildly dilated ventricles. After discussion of the risks, benefits, and alternatives, he and his mother elected to undergo shunt exploration with possible revision. The patient was seen and interviewed in the emergency department. An updated history and physical was obtained. Consent was obtained. The patient was brought back to the operating by anesthesia. General endotracheal anesthesia was induced without complication. The patient was positioned supine, with the head turned to towards the left, and a small axillary roll under the scapula to extend the neck. All pressure points were padded. The right side of the head was now shaved, and the skin incisions were inspected. There is no evidence of infection. His preoperative head CT was no coregistered tohis head and 3D space using the RedHelper navigation system with Rockerboxom. Once accuracy, and orien tation were confirmed using anatomic landmarks, we proceeded to demarcate the path of the shunt on the skin. We selected the incision that was directly overlying his existing valve which was a CodmanHakim. Now the scalp and abdomen were prepped and draped in the usual sterile fashion. A timeout was undertaken. 2 g of cefazolin were administered intravenously. We began with the cranial incision. Quarter percent Marcaine with epinephrine was infiltrated into the skin incision. The skin was opened sharply with a 10 blade. Bovie cautery was now used to expose the valve, the proximal catheter, aswell as the distal catheter. The valve was quite superficial with only very small amount of skin overlying it. Once we could see the system in its entirety, we proceeded to test each of the shunt component. We first disconnected the proximal catheter from the valve. Here we were able to see clear spontaneous CSF under moderate pressure. This was closed off with a bulldog. We then placed a small amount of catheter tubing into the valve, and tested for spontaneous runoff using a manometer charge to 20 cm of water. Could see that there was no spontaneous drainage of fluid. Further, we attempted to flush the valve, and encountered high resistance. We therefore investigated the distal peritonealcatheter. Again a snap was used to disconnect the prior suture, and the valve was disconnected fromthe distal tubing. This was heavily calcified. The manometer was now brought back onto the field, and we charged the water level to 29 cmH2O again. This time, there was clear distal runoff all the way into the abdomen at an appropriate speed. We therefore confirmed that both the proximal and distalshunt tubing were patent. At this point the decision was made to replace the valve. A new Codman Hakim valve was brought into the field. The septum preprogrammed to 80 in the operating room. The valve was attached to the distal tubing using a 2- 0 silk side, we also then confirmed that there was runoff distal to the valve by reattaching the manometer and confirming that there was spontaneous flow t hrough the valve into the abdomen. The proximal catheter was now connected to the valve and securedalso with a 2-0 silk tie. Then, because there was significantly thin skin over the existing valve we used the Bovie to create a new valve pocket deep to the original pocket. We then seated the valve and the catheter in this pocket, taking care not to generate any new kinks. At this point we proceeded to close. The entire wound was copiously irrigated with LR. Interrupted 3-0 Vicryl was used to close the valve pocket, interrupted 3-0 Vicryl's were used to close the galea, and the skin was closedwith a 4-0 nylon in running fashion. At the end of the case, all counts were correct. I was presentfor the entire procedure Surgical Infection Prevention Bundle Used? N/A Attestation: Case Date: 05/24/2022 I was present and I participated during the entire procedure (does not need to include opening and closing). Rhoda Jimenez MD 05/24/2022 * Brief Op Note - Main Trevino MD - 05/24/2022 10:33 AM EDT Brief Operative Note Patient Name: Chapin Costa : [id number] MR#: [id number] Case Date: 05/24/2022 Surgeon: Surgeon(s) and Role: * Rhoda Jimenez MD - Primary * Main Trevino MD - Resident Preoperative diagnosis: SHunt malfunction Postoperative diagnosis: SHunt malfunction Procedure(s) (LRB): EXPLORATION VENTRICULO-PERITONEAL SHUNT (WRVU 25.48) (Right) MODIFIER, AXIEM, SHUNT (Right) Anesthesia: General Findings: Nonfunctioning valve s/p replacement with Hakim @ 80 (same preop settings), proximal and distal catheters patent. Closed with nylon. Complications: None Estimated Blood Loss: 5 mL* No values recorded between 05/24/2022 9:39 AM and 05/24/2022 10:29 AM * Specimens removed during surgery: None Fluids: Intraprocedure Crystalloid Total Intake Sodium Chloride 0.9% 500.00 mL Ondansetron 4.00 mL Total Intake 504 mL Output Blood Loss 5 mL Total Output 5 mL Net Net Volume 499 mL PRBCs: none (See Anesthesia Record/Report for Other Blood Products) Urine Output: (no urine output recorded) Drains: NOne Disposition: awakened from anesthesia, extubated and taken to the recovery room in a stable condition, having suffered no apparent untoward event. Condition: doing well without problems (Please see the Surgical Encounter Summary for any Implant and Specimen details pertinent to this patient.) Surgical Infection Prevention Bundle Used? No * ED Triage - Shaina Proctor RN - 05/23/2022 7:46 PM EDT I have shunt, and I think that there is something wrong with it. I have had a headache for a week. Have an elevated white blood count per urgent care. Having shunt pain as well. Pain 7-8/10 Has had a fever for the last week, temp of 99 documented in this encounter Plan of Treatment Not on file documented as of this encounter Procedures Procedure Name Priority Date/Time Associated Diagnosis Comments HEMOGRAM Routine 05/25/2022 12:38 AM EDT DIFFERENTIAL, AUTOMATED Routine 05/25/2022 12:38 AM EDT HC VENIPUNCTURE Routine 05/25/2022 12:38 AM EDT BASIC METABOLIC PANEL Routine 05/25/2022 12:38 AM EDT HC VENIPUNCTURE STAT 05/24/2022 10:55 PM EDT XR SKULL Routine 05/24/2022 12:[address] HEAD WO CONTRAST (GENERIC) Routine 05/24/2022 12:40 PM EDT MODIFIER, AXIEM, SHUNT 8:35 AM EDT SHunt malfunction Unlisted Procedure Nervous System (24452) 05/24/2022 8:35 AM EDT SHunt malfunction EXPLORATION VENTRICULO-PERITONEAL SHUNT Routine 05/24/2022 7:18 AM EDT TYPE AND SCREEN VALIDITY STAT 05/24/2022 2:20 AM EDT ABORH RECHECK STATUS STAT 05/24/2022 2:20 AM EDT CRP, ACUTE INFLAMMATION STAT 05/24/2022 2:20 AM EDT ABO/RH TYPING STAT 05/24/2022 2:20 AM EDT HC PARTIAL THROMBOPLASTIN TIME STAT 05/24/2022 2:20 AM EDT HC ESR-SEDIMENTATION RATE, BLOOD STAT 05/24/2022 2:20 AM EDT HC PROTHROMBIN TIME STAT 05/24/2022 2 :20 AM EDT ANTIBODY SCREEN STAT 05/24/2022 2:20 AM EDT TYPE AND SCREEN ([facility]/DULCE MARIA) STAT 05/24/2022 2:20 AM EDT HC HERPES SIMPLEX VIRUS 1/2 BY PCR STAT 05/24/2022 12:45 AM EDT HC CSF CELL COUNT STAT 05/24/2022 12: 45 AM EDT CSF CELL COUNT STAT 05/24/2022 12:45 AM EDT CSF DESC 1 STAT 05/24/2022 12:45 AM EDT HC PCH VARICELLA ZOSTER PCR STAT 05/24/2022 12:45 AM EDT HC PCH MO-ENTEROVIRUS AMPLIFIED PROBE STAT 05/24/2022 12:45 AM EDT HC CONFIGURATOR CULTURE STAT 05/24/2022 12:45 AM EDT HC FUNGUS CULTURE, MISC SOURCE STAT 05/24/2022 12:45 AM EDT HC PROTEIN, CSF STAT 05/24/2022 12:45 AM EDT GLUCOSE LEVEL CSF STAT 05/24/2022 12: 45 AM EDT IMPLANTABLE DEVICES SCAN 05/24/2022 12:00 AM EDT XR SHUNT SERIES STAT 05/23/2022 9:[address] HEAD WO CONTRAST (GENERIC) STAT 05/23/2022 8:56 PM EDT URINALYSIS WITH REFLEX CULTURE STAT 05/23/2022 8:54 PM EDT HC THYROID STIMULATING HORMONE, SERUM STAT 05/23/2022 8:32 PM EDT HEMOGRAM STAT 05/23/2022 8:32 PM EDT DIFFERENTIAL, AUTOMATED STAT 05/23/2022 8:32 PM EDT HC CBC,PLT & AUTO DIFF STAT 8:32 PM EDT BASIC METABOLIC PANEL STAT 05/23/2022 8:32 PM EDT documented in this encounter Results * CT Head wo Contrast (Generic) (06/10/2022 12:15 PM EDT) Anatomical Region Laterality Modality Head Computed Tomogra phy Impressions 06/10/2022 12:37 PM EDT Stable ventricular caliber and morphology. No significant shunt abnormality noted Thank you for letting us participate in the care of this patient. ??If you are a health care provider and have any questions regarding this report, please contact the number below. ??For patients who have questions please contact the health acute care clinical nurse specialist that requested your imaging first. ? Narrative 06/10/2022 12:37 PM EDT EXAMINATION: CT HEAD WO CONTRAST (GENERIC) CLINICAL HISTORY: postop shunt revision TECHNIQUE: CT Head was performed without contrast COMPARISON: Previous CT 05/24/2022 FINDINGS: Right temporal parietal craniotomy is noted. Shunt catheter within the subcutaneous tissues on the right is unchanged. Catheter courses through the frontal bone and frontal lobe to the posterior midline into the left lateral ventricular frontal horn just anterior to the foramen of Gutiérrez. Stable dilatation of the right temporal horn is noted as well as low density areas identified in the genu of corpus callosum and right forceps minor. Mild low density is identified in the right posterior periatrial white matter. All of these findings are unchanged from previous exam. There is no significant increase in ventricular caliber no intracranial hemorrhage or major vascular territory infarct is identified Procedure Note Rich Ray MD - 06/10/2022 EXAMINATION: CT HEAD WO CONTRAST (GENERIC) CLINICAL HISTORY: postop shunt revision TECHNIQUE: CT Head was performed without contrast COMPARISON: Previous CT 05/24/2022 FINDINGS: Right temporal parietal craniotomy is noted. Shunt catheterwithin the subcutaneous tissues on the right is unchanged. Catheter courses throughthe frontal bone and frontal lobe to the posterior midline into the leftlateral ventricular frontal horn just anterior to the foramen of Gutiérrez. Stable dilatation of the right temporal horn is noted as well as low densityareas identified in the genu of corpus callosum and right forceps minor. Mildlow density is identified in the right posterior periatrial white matter. Allof these findings are unchanged from previous exam. There is no significant increase in ventricular caliber no intracranial hemorrhage or majorvascular territory infarct is identified IMPRESSION Stable ventricular caliber and morphology. No significant shunt abnormality noted Thank you for letting us participate in the care of this patient. If youare a health care provider and have any questions regarding this report,please contact the number below. For patients who have questions please contactthe health acute care clinical nurse specialist that requested your imaging first. Rhoda Jimenez MD IMG CT ORDERABLES * (ABNORMAL) Differential, Automated (05/25/2022 12:38 AM EDT) Neutrophil % 83.2 % [facility] Neutrophil Absolute 15.10(H) 1.70 - 6.10 x10(3)/mc L [facility] Lymph % 11.9 % [facility] Lymphocytes Abs 2.2 0.9 - 3.2 x10(3)/mc L [facility] Monocyte % 4.1 % [facility] Monocyte Abs 0.8 0.3 - 0.9 x10(3)/mc L [facility] Eos % 0.1 % [facility] Eosinophils Abs 0.0 0.0 - 0.4 x10(3)/mc L [facility] Basophil % 0.3 % [facility] Baso Absolute 0.1 0.0 - 0.1 x10(3)/mc L [facility] Immature Gran % 0.40 % [facility] Comment: Immature granulocytes(IG's)percentage and absolute count will include metamyelocytes, myelocytes, and promyelocytes. Blood smears from CBCs yielding IG's will be scanned manually for concordance. If this scan disagrees with the automated IG or if promyelocytes are noted, a manual differential will be performed. Immature Gran Absolute 0.07(H) 0.00 - 0.04 x10(3)/mc L [facility] Blood 05/25/2022 12:3 8 AM EDT 05/25/2022 1:00 AM EDT Narrative Resulting Agency Comment Spec In Lab Laila Ricci MD HEMATOLOGY ORDERABLE S [facility] [place] [address] * (ABNORMAL) Hemogram (05/25/2022 12:38 AM EDT) White Blood Cell 18.2(H) 4.0 - 9.5 x10(3)/mc L [facility] Red Blood Cell 5.33 4.58 - 5.54 x10(6)/mc L [facility] Hemoglobin 16.0 13.7 - 16.5 g/dL [facility] Hematocrit 46.7 40.5 - 48.5 % [facility] Mean Cell Volume 87.6 82.9 - 93.1 fL [facility] Mean Cell Hemoglobin 30.0 27.5 - 32.1 pg [facility] Mean Cell Hemoglobin Concentration 34.3 32.0 - 35.7 g/dL [facility] Platelet 275 145 - 357 x10(3)/mc L [facility] RDW Standard Deviation 41.1 36.0 - 45.0 fL [facility] RDW coefficient of variation 12.9 11.4 - 13.8 % [facility] Mean Platelet Volume 9.2 7.6 - 12.9 fL [facility] NRBC% auto 0.0 % [facility] NRBC Absolute 0.000 0.000 - 0.000 x10(3)/mc L [facility] Blood 05/25/2022 12:3 8 AM EDT 05/25/2022 1:00 AM EDT Narrative Resulting Agency Comment Spec In Lab Laila Ricci MD HEMATOLOGY ORDERABLE S [facility] [place] [address] * (ABNORMAL) Basic Metabolic Panel (non-fasting) (05/25/2022 12:38 AM EDT) Glucose 132 65 - 199 mg/dL [facility] Comment:Diabetes: >=200 mg/d L plus symptoms Blood Urea Nitrogen 16 10 - 20 mg/dL [facility] Creatinine 1.07 0.80 - 1.50 mg/dL [facility] Sodium 135 135 - 145 mmol/L [facility] Potassium 4.3 3.5 - 5.0 mmol/L [facility] Comment: Please note: ??Patients with WBC >100,000 may have falsely elevated Potassium levels. ??For accurate Potassium quantification in these patients send serum separator tube (gold top) for subsequent determinations. ??Contact the Clinical Chemistry Laboratory if there are any questions. Chloride 101 98 - 107 mmol/L [facility] Carbon Dioxide 21(L) 22 - 31 mmol/L [facility] Anion Gap 13 5 - 15 mmol/L [facility] Calcium 9.0 8.5 - 10.5 mg/dL [facility] Est Glomerular Filtration Rate 85 >=60 mL/min/1. 73 m?? [facility] Comment: This patient's estimated GFR was [...] and symptoms in addition to eGFR. Blood 05/25/2022 12:3 8 AM EDT 05/25/2022 1:00 AM EDT Narrative Resulting Agency Comment Spec In Lab Rhoda Jimenez MD CHEMISTRY ORDERABLES Performing Organization Address [facility] Co de Phone Number [facility] [place] [address] * Blood culture (05/24/2022 10:55 PM EDT) Blood Culture No growth at 5 days. [facility] Blood 05/24/2022 10:5 5 PM EDT 05/24/2022 11:38 PM EDT Comment:RAC hand 1 set Narrative Resulting Agency Comment Spec In Lab Rhoda Jimenez MD MICROBIOLOGY - BLOOD ORDERABLES Performing Organization Address [facility] de Phone Number [facility] [place] [address] * XR Skull (Generic) (05/24/2022 12:51 PM EDT) Anatomical Region Laterality Modality N/A Digital Radiogra phy Impressions 05/24/2022 1:07 PM EDT Programmable shunt setting, as above. Thank you for letting us participate in the care of this patient. ??If you are a health care provider and have any questions regarding this report, please contact the number below. ??For patients who have questions please contact the health acute care clinical nurse specialist that requested your imaging first. ? Narrative 05/24/2022 1:07 PM EDT EXAMINATION: XR SKULL (GENERIC) CLINICAL HISTORY: s/p VPS revision (valve changed only). PLS INCLUDE ONE XR PARALLEL TO VALVE TO CONFIRM SETTING. TECHNIQUE: Right lateral view skull COMPARISON: Skull radiograph 01/19/2017 FINDINGS: Proximal tip of the shunt catheter projects in the region of the lateral ventricles. Few small cortical defects in the parietal calvarium noted. Codman Hakim programmable valve setting appears to be set at 80 mm of water. Procedure Note Rell Mcfarland MD - 05/24/2022 EXAMINATION: XR SKULL (GENERIC) CLINICAL HISTORY: s/p VPS revision (valve changed only). PLS INCLUDE ONEXR PARALLEL TO VALVE TO CONFIRM SETTING. TECHNIQUE: Right lateral view skull COMPARISON: Skull radiograph 01/19/2017 FINDINGS: Proximal tip of the shunt catheter projects in the region of the lateral ventricles. Few small cortical defects in the parietal calvarium noted.Codman Hakim programmable valve setting appears to be set at 80 mm of water. IMPRESSION Programmable shunt setting, as above. Thank you for letting us participate in the care of this patient. If youare a health care provider and have any questions regarding this report,please contact the number below. For patients who have questions please contactthe health acute care clinical nurse specialist that requested your imaging first. Rhoda Jimenez MD IMG DX ORDERABLES * CT Head wo Contrast (Generic) (05/24/2022 12:40 PM EDT) Anatomical Region Laterality Modality Head Computed Tomogra phy Impressions 05/24/2022 1:09 PM EDT Similar caliber and contour of the ventricles compared to most recent exam. Thank you for letting us participate in the care of this patient. ??If you are a health care provider and have any questions regarding this report, please contact the number below. ??For patients who have questions please contact the health acute care clinical nurse specialist that requested your imaging first. ? Narrative 05/24/2022 1:09 PM EDT EXAMINATION: CT HEAD WO CONTRAST (GENERIC) CLINICAL HISTORY: Hydrocephalus, Status post VPS revision (valve changed only) TECHNIQUE: CT Head was performed without contrast COMPARISON: CT head 05/23/2022 FINDINGS: Right-sided craniotomy changes. Right frontal approach shunt catheter tip is unchanged in position. There is subcutaneous air about the bowel revision site. Similar caliber of the ventricles and unchanged foci of tissue loss in the region of the right caudate nucleus. Similar right parietal hypoattenuation. Angel-white differentiation is preserved. There is no acute intracranial hemorrhage. The otomastoid spaces are clear. Visualized paranasal sinuses are essentially clear. Procedure Note Lisney Herrera MD - 05/24/2022 EXAMINATION: CT HEAD WO CONTRAST (GENERIC) CLINICAL HISTORY: Hydrocephalus, Status post VPS revision (valve changedonly) TECHNIQUE: CT Head was performed without contrast COMPARISON: CT head 05/23/2022 FINDINGS: Right-sided craniotomy changes. Right frontal approach shuntcatheter tip is unchanged in position. There is subcutaneous air about the bowelrevision site. Similar caliber of the ventricles and unchanged foci of tissue lossin the region of the right caudate nucleus. Similar right parietalhypoattenuation. Angel-white differentiation is preserved. There is no acute intracranial hemorrhage. The otomastoid spaces are clear. Visualized paranasal sinusesare essentially clear. IMPRESSION Similar caliber and contour of the ventricles compared to most recentexam. Thank you for letting us participate in the care of this patient. If youare a health care provider and have any questions regarding this report,please contact the number below. For patients who have questions please contactthe health acute care clinical nurse specialist that requested your imaging first. Electronically signed by: HAIM Song [facility]([phone]), at 05/24/2022 1:09 PM Rhoda Jimenez MD IMG CT ORDERABLES * Type and Screen Validity (05/24/2022 2:20 AM EDT) T&S only valid at [facility] Comment:This Type and Screen result is only valid at the [facility] Blood 05/24/2022 2:20 AM EDT 05/24/2022 2:39 AM EDT Narrative Resulting Agency Comment Spec In Lab Laila Ricci MD BLOOD BANK LAB ORDER BELKIS [facility] [place] [address] * ABORH Recheck Status (05/24/2022 2:20 AM EDT) Pathologist [facility] [place] ABOR Type Recheck Completed [facility] Blood 05/24/2022 2:20 AM EDT 05/24/2022 2:39 AM EDT Narrative Resulting Agency Comment Spec In Lab Laila Ricci MD BLOOD BANK LAB ORDER BELKIS [facility] [place] [address] * Antibody screen (05/24/2022 2:20 AM EDT) Ab Screen Interp Negative [facility] Expires at [id number] on: 05/27/2022 [facility] Blood 05/24/2022 2:20 AM EDT 05/24/2022 2:39 AM EDT Narrative Resulting Agency Comment Spec In Lab Laila Ricci MD BLOOD BANK LAB ORDER BELKIS [facility] [place] [address] * ABO/Rh Typing (05/24/2022 2:20 AM EDT) ABORH Type A Pos [facility] Blood 05/24/2022 2:20 AM EDT 05/24/2022 2:39 AM EDT Narrative Resulting Agency Comment Spec In Lab Laila Ricci MD BLOOD BANK LAB ORDER BELKIS Performing Organization Address [facility] Co de Phone Number [facility] [place] [address] * (ABNORMAL) CRP, acute inflammation (05/24/2022 2:20 AM EDT) C-Reactive Protein 10.8(H) <=4.9 mg/L [facility] Blood 05/24/2022 2:20 AM EDT 05/24/2022 2:33 AM EDT Narrative Resulting Agency Comment Spec In Lab Rhoda Jimenez MD CHEMISTRY ORDERABLES Performing Organization Address [facility] Co de Phone Number [facility] [place] [address] * (ABNORMAL) Sedimentation rate (05/24/2022 2:20 AM EDT) Sedimentation Rate Automated 35(H) 2 - 28 mm/hr [facility] Comment: Effective February 02, 2019 new capillary photometric technology has resulted in a change in reference ranges. It is recommended that each ESR result be reviewed with its own age appropriate reference range. Blood 05/24/2022 2:20 AM EDT 05/24/2022 2:33 AM EDT Narrative Resulting Agency Comment Spec In Lab Rhoda Jimenez MD HEMATOLOGY ORDERABLE S Performing Organization Address [facility] Co de Phone Number [facility] [place] [address] * APTT (05/24/2022 2:20 AM EDT) Partial Thromboplastin Time 31 25 - 37 sec [facility] Comment: The PTT is NOT appropriate for heparin monitoring. Use the Anti-Xa level for heparin monitoring (HEP UFH) or LMWH monitoring (HEP LMW). A PTT less than 37 seconds generally indicates adequate hemostasis. Blood 05/24/2022 2:20 AM EDT 05/24/2022 2:33 AM EDT Narrative Resulting Agency Comment Spec In Lab Rhoda Jimenez MD HEMATOLOGY ORDERABLE S Performing Organization Address [facility] Co de Phone Number [facility] [place] [address] * Prothrombin Time (05/24/2022 2:20 AM EDT) Prothrombin Time 12.1 9.4 - 12.5 sec [facility] International Normalization Ratio 1.1 [facility] Comment: An INR <2.0 indicates adequate procoagulant activity for hemostasis in most patients without underlying bleeding disorders, though the INR may not adequately reflect hemostatic capacity in patients with liver disease and synthetic impairment. The recommended target INR range for therapeutic anticoagulation is 2.0 ? 3.0 for most applications, though lower and higher ranges may be appropriate depending on clinical circumstances. Blood 05/24/2022 2:20 AM EDT 05/24/2022 2:33 AM EDT Narrative Resulting Agency Comment Spec In Lab Rhoda Jimenez MD HEMATOLOGY ORDERABLE S Performing Organization Address [facility] Co de Phone Number [facility] [place] [address] * CSF Cell Count (05/24/2022 12:45 AM EDT) Tube # counted 1 [facility] AUTO NUC CSF CT 0 0 - 5 /mcl [facility] Comment: If Nucleated CSF CT [...] clinical condition. RBC CSF CT 0 /mcl [facility] Cerebrospinal Fluid 05/25/19 12:45 AM EDT 05/24/2022 1:00 AM EDT Narrative Resulting Agency Comment Spec In Lab Laila Ricci MD BODY FLUIDS AND STOO LS ORDERABLES Performing Organization Address [facility] Co de Phone Number [facility] [place] [address] * CSF DESC 1 (05/24/2022 12:45 AM EDT) Tube Num CSF #1 1 [facility] Color, CSF Colorless Colorless [facility] Appearance, CSF Clear Clear [facility] Total Vol, CSF 2.3 mL [facility] Cerebrospinal Fluid 05/25/19 12:45 AM EDT 05/24/2022 1:00 AM EDT Narrative Resulting Agency Comment Spec In Lab Laila Ricci MD BODY FLUIDS AND STOO LS ORDERABLES Performing Organization Address [facility] Co de Phone Number [facility] [place] [address] * VZV PCR, CSF (05/24/2022 12:45 AM EDT) Varicella-Zo ster PCR (MAY) Test ?Result ? Flag ??Unit ??RefValue ------- Varicella-Zoster Virus, PCR, Varies ??Specimen Source ? CSF ??Varicella-Zoster Virus PCR ?Negative ? Negative ? ---ADDITIONAL INFORMATION------- ?This test was developed and its performance characteristics ?determined by [facility] in a manner consistent with CLIA ?requirements. This test has not been cleared or approved by ?the U.S. Food and Drug Administration. ?Test Performed by: ?[facility] ?[address] [place] [address] ?Regional Construction Manager: Jackson Kaplan M.D. Ph.D.; CLIA# [id number] [facility] Cerebrospinal Fluid 05/25/19 12:45 AM EDT 05/26/2022 8:23 AM EDT Narrative Resulting Agency Comment Spec In Lab Rhoda Jimenez MD LAB SEND OUT ORDERAB LES Performing Organization Address [facility] Co de Phone Number [facility] [place] [address] * Fungus culture Cerebrospinal Fluid (05/24/2022 12:45 AM EDT) Fungus Culture No Fungus isolated [facility] Cerebrospinal Fluid 05/25/19 12:45 AM EDT 05/24/2022 1:05 AM EDT Narrative Resulting Agency Comment Spec In Lab Rhoda Jimenez MD MICROBIOLOGY - GENER AL ORDERABLES Performing Organization Address [facility] de Phone Number [facility] [place] [address] * HSV 1 and 2 PCR (05/24/2022 12:45 AM EDT) HSV-1 PCR Not Detected Not Detected [facility] HSV-2 PCR Not Detected Not Detected [facility] HSV Source CSF [facility] Comment: The only FDA approved specimen types for this assay are CSF and genital lesions. Cerebrospinal Fluid 05/25/19 12:45 AM EDT 05/24/2022 1:05 AM EDT Comment:Specimen Type:->Cere brospinal Fluid Narrative Resulting Agency Comment Spec In Lab Rhoda Jimenez MD MICROBIOLOGY - GENER AL ORDERABLES [facility] [place] [address] * Enterovirus PCR, CSF (05/24/2022 12:45 AM EDT) ENTV PCR Negative Negative [facility] Cerebrospinal Fluid 05/25/19 12:45 AM EDT 05/24/2022 1:05 AM EDT Narrative Resulting Agency Comment Spec In Lab Rhoda Jimenez MD MICROBIOLOGY - GENER AL ORDERABLES Performing Organization Address City/[facility] [place] [address] * CSF Culture (05/24/2022 12:45 AM EDT) Pathologist [facility] [place] Central Nervous System Culture No growth [facility] Gram Stain Cytocentrifuge Gram Stain performed No Neutrophils seen. No microorganisms seen. [facility] Cerebrospinal Fluid 05/25/19 12:45 AM EDT 05/24/2022 1:05 AM EDT Narrative Resulting Agency Comment Spec In Lab Rhoda Jimenez MD MICROBIOLOGY - GENER AL ORDERABLES Performing Organization Address [facility]/ZIP Co de Phone Number [facility] [place] [address] * Glucose Level CSF (05/24/2022 12:45 AM EDT) Pathologist [facility] [place] Glucose, CSF 78 mg/dL [facility] Comment:CSF at equilibrium e quals approximately 60-80% of plasma glucose. Cerebrospinal Fluid 05/25/19 12:45 AM EDT 05/24/2022 1:00 AM EDT Narrative Resulting Agency Comment Spec In Lab Rhoda Jimenez MD BODY FLUIDS AND STOO LS ORDERABLES Performing Organization Address City/[facility] [place] [address] * (ABNORMAL) Protein Level CSF (05/24/2022 12:45 AM EDT) Protein, CSF 9(L) 15 - 45 mg/dL [facility] Xanthochromia Neg [facility] Cerebrospinal Fluid 05/25/19 12:45 AM EDT 05/24/2022 1:00 AM EDT Narrative Resulting Agency Comment Spec In Lab Rhoda Jimenez MD BODY FLUIDS AND STOO LS ORDERABLES [facility] [place] [address] * SCAN DOC: IMPLANTABLE DEVICES (05/24/2022 12:00 AM EDT) Narrative 05/24/2022 12:00 AM EDT Ordered by an unspecified provider. Scanning Provider MEDIA MGR SCAN EXT O RDR/RSLT * XR Shunt Series (05/23/2022 9:51 PM EDT) Anatomical Region Laterality Modality N/A Digital Radiogra phy Impressions 05/23/2022 10:11 PM EDT * ??Right frontal approach ORGANIZATIONAL CONSULTANT shunt catheter. * ??No fracture or kinking is evident. * ??Mild cinching of the catheter at the level of C5 vertebral body on lateral view. Consider functional assessment. Thank you for letting us participate in the care of this patient. ??If you are a health care provider and have any questions regarding this report, please contact the number below. ??For patients who have questions please contact the health acute care clinical nurse specialist that requested your imaging first. ? Narrative 05/23/2022 10:11 PM EDT EXAMINATION: XR SHUNT SERIES CLINICAL HISTORY: New ALICEA, tenderness over shunt behind ear, vision changes TECHNIQUE: AP and lateral views of the skull, chest, and abdomen. Total 7 images COMPARISON: XR shunt series 01/14/2017. CT head 05/23/2022. FINDINGS: Right frontal approach ORGANIZATIONAL CONSULTANT shunt catheter without evidence of fracture or kinking terminates in the left upper quadrant of the abdomen. Mild cinching of the catheter at the level of C5 vertebral body on lateral view. Suboptimal visualization of the catheter on lateral views of the chest. Fibrotic changes along the catheter at multiple sites. SKULL: Changes of prior right craniotomy. Patient is edentulous. No air-fluid levels in the paranasal sinuses are mastoid air cells. Intact osseous structures. CHEST: Trachea, mainstem bronchi, cardiomediastinal silhouette, tabby, and pulmonary vascular markings are within normal limits. No focal airspace opacity, pleural effusion or pneumothorax. Unremarkable osseous structures. ABDOMEN: Nonobstructive bowel gas pattern. Cholecystectomy clips. A metallic clip projects over the left abdomen. Unremarkable osseous structures. Procedure Note Karen Newsome MD - 05/23/2022 EXAMINATION: XR SHUNT SERIES CLINICAL HISTORY: New ALICEA, tenderness over shunt behind ear, visionchanges TECHNIQUE: AP and lateral views of the skull, chest, and abdomen. Total 7 images COMPARISON: XR shunt series 01/14/2017. CT head 05/23/2022. FINDINGS: Right frontal approach ORGANIZATIONAL CONSULTANT shunt catheter without evidence of fracture orkinking terminates in the left upper quadrant of the abdomen. Mild cinching ofthe catheter at the level of C5 vertebral body on lateral view. Suboptimal visualization of the catheter on lateral views of the chest. Fibroticchanges along the catheter at multiple sites. SKULL: Changes of prior right craniotomy. Patient is edentulous. Noair-fluid levels in the paranasal sinuses are mastoid air cells. Intact osseous structures. CHEST: Trachea, mainstem bronchi, cardiomediastinal silhouette, tabby,and pulmonary vascular markings are within normal limits. No focal airspaceopacity, pleural effusion or pneumothorax. Unremarkable osseous structures. ABDOMEN: Nonobstructive bowel gas pattern. Cholecystectomy clips. Ametallic clip projects over the left abdomen. Unremarkable osseous structures. IMPRESSION * Right frontal approach ORGANIZATIONAL CONSULTANT shunt catheter. * No fracture or kinking is evident. * Mild cinching of the catheter at the level of C5 vertebral body onlateral view. Consider functional assessment. Thank you for letting us participate in the care of this patient. If youare a health care provider and have any questions regarding this report,please contact the number below. For patients who have questions please contactthe health acute care clinical nurse specialist that requested your imaging first. Ray Olivia MD IMG DX ORDERABLES * CT Head wo Contrast (Generic) (05/23/2022 8:56 PM EDT) Anatomical Region Laterality Modality Head Computed Tomogra phy Impressions 05/23/2022 9:05 PM EDT No hydrocephalus or acute intracranial abnormality. Thank you for letting us participate in the care of this patient. ??If you are a health care provider and have any questions regarding this report, please contact the number below. ??For patients who have questions please contact the health acute care clinical nurse specialist that requested your imaging first. ? Narrative 05/23/2022 9:05 PM EDT EXAMINATION: CT HEAD WO CONTRAST (GENERIC) CLINICAL HISTORY: ORGANIZATIONAL CONSULTANT shunt w/ worsening headaches since Thursday, c/f obstruction/poor drainage TECHNIQUE: CT head performed without intravenous contrast administration. COMPARISON: CT head without contrast 12/07/2019. FINDINGS: Right frontal approach shunt catheter in unchanged position. Angel-white interface appears well differentiated. Slightly prominent hypodensity adjacent to the frontal horn of the right lateral ventricle likely represents gliosis or chronic microvascular disease. Unchanged appearance of the ventricles. ?? Basal cisterns are patent. No global mass effect, midline shift, herniation, large space-occupying process appreciated. No acute intracranial hemorrhage. Orbits: Normal Included paranasal sinuses: Clear. Mastoid air cells: Clear. Osseous structures: Extracranial soft tissues: Changes related to prior right craniotomy. Procedure Note Karen Newsome MD - 05/23/2022 EXAMINATION: CT HEAD WO CONTRAST (GENERIC) CLINICAL HISTORY: ORGANIZATIONAL CONSULTANT shunt w/ worsening headaches since Thursday, c/f obstruction/poor drainage TECHNIQUE: CT head performed without intravenous contrast administration. COMPARISON: CT head without contrast 12/07/2019. FINDINGS: Right frontal approach shunt catheter in unchanged position. Angel-white interface appears well differentiated. Slightly prominenthypodensity adjacent to the frontal horn of the right lateral ventricle likelyrepresents gliosis or chronic microvascular disease. Unchanged appearance of the ventricles. Basal cisterns are patent. No global mass effect, midline shift, herniation, large space-occupyingprocess appreciated. No acute intracranial hemorrhage. Orbits: Normal Included paranasal sinuses: Clear. Mastoid air cells: Clear. Osseous structures: Extracranial soft tissues: Changes related to priorright craniotomy. IMPRESSION No hydrocephalus or acute intracranial abnormality. Thank you for letting us participate in the care of this patient. If youare a health care provider and have any questions regarding this report,please contact the number below. For patients who have questions please contactthe health acute care clinical nurse specialist that requested your imaging first. Ray Olivia MD [facility] CT ORDERABLES * (ABNORMAL) Urinalysis with reflex Culture (05/23/2022 8:54 PM EDT) Glucose, Urine Dipstick Negative Negative mg/dL [facility] Protein, Urine Dipstick Negative Negative mg/dL [facility] Bilirubin, Urine Dipstick Negative Negative mg/dL [facility] Comment: Clinical correlation required for positive Urine Bilirubin results as false positive may occur with some drugs and drug related products. If a false positive is suspected a serum total bilirubin should be considered if clinically indicated. Urobilinogen, Urine Dipstick Normal Normal mg/dL [facility] pH, Urn (dipstick) 6.5 5.0 - 8.0 [facility] Blood, Urine Dipstick Negative Negative mg/dL [facility] Ketone, Urine Dipstick Negative Negative mg/dL [facility] Nitrite, Urine Dipstick Negative Negative [facility] Leukocytes, Urine Dipstick Negative Negative mcL [facility] Appearance, Urine Dipstick Cloudy(A) Clear [facility] Specific [place] Urine Automated 1.016 1.005 - 1.030 [facility] Color, Urine Dipstick Yellow Yellow [facility] Reflex to Culture No [facility] Clean Catch Urine 05/23/2022 8:54 PM EDT 05/23/2022 8:58 PM EDT Narrative Resulting Agency Comment Spec In Lab Ray Olivia MD URINE ORDERABLES Performing Organization Address City/State/[facility] Co de Phone Number [facility] [place] [address] * (ABNORMAL) Differential, Automated (05/23/2022 8:32 PM EDT) Neutrophil % 68.3 % [facility] Neutrophil Absolute 11.19(H) 1.70 - 6.10 x10(3)/mc L [facility] Lymph % 23.6 % [facility] Lymphocytes Abs 3.9(H) 0.9 - 3.2 x10(3)/mc L [facility] Monocyte % 6.0 % [facility] Monocyte Abs 1.0(H) 0.3 - 0.9 x10(3)/mc L [facility] Eos % 1.1 % [facility] Eosinophils Abs 0.2 0.0 - 0.4 x10(3)/mc L [facility] Basophil % 0.6 % [facility] Baso Absolute 0.1 0.0 - 0.1 x10(3)/mc L [facility] Immature Gran % 0.40 % [facility] Comment: Immature granulocytes(IG's)percentage and absolute count will include metamyelocytes, myelocytes, and promyelocytes. Blood smears from CBCs yielding IG's will be scanned manually for concordance. If this scan disagrees with the automated IG or if promyelocytes are noted, a manual differential will be performed. Immature Gran Absolute 0.06(H) 0.00 - 0.04 x10(3)/mc L [facility] Blood 05/23/2022 8:32 PM EDT 05/23/2022 8:44 PM EDT Narrative Resulting Agency Comment Spec In Lab Derek Monson MD HEMATOLOGY ORDERABLE S [facility] [place] [address] * (ABNORMAL) Hemogram (05/23/2022 8:32 PM EDT) White Blood Cell 16.4(H) 4.0 - 9.5 x10(3)/mc L [facility] Red Blood Cell 5.75(H) 4.58 - 5.54 x10(6)/mc L [facility] Hemoglobin 17.2(H) 13.7 - 16.5 g/dL [facility] Hematocrit 49.8(H) 40.5 - 48.5 % [facility] Mean Cell Volume 86.6 82.9 - 93.1 fL [facility] Mean Cell Hemoglobin 29.9 27.5 - 32.1 pg [facility] Mean Cell Hemoglobin Concentration 34.5 32.0 - 35.7 g/dL [facility] Platelet 279 145 - 357 x10(3)/mc L [facility] RDW Standard Deviation 39.8 36.0 - 45.0 fL [facility] RDW coefficient of variation 12.7 11.4 - 13.8 % [facility] Mean Platelet Volume 9.2 7.6 - 12.9 fL [facility] NRBC% auto 0.0 % [facility] NRBC Absolute 0.000 0.000 - 0.000 x10(3)/mc L [facility] Blood 05/23/2022 8:32 PM EDT 05/23/2022 8:44 PM EDT Narrative Resulting Agency Comment Spec In Lab Derek Monson MD HEMATOLOGY ORDERABLE S Performing Organization Address [facility] Co de Phone Number [facility] [place] [address] * TSH Mercer (05/23/2022 8:32 PM EDT) Thyroid Stimulating Hormone 2.33 0.27 - 4.20 mcIU/mL [facility] Comment: Reference Interval (mcIU/mL): Females: ??First Trimester: 0.23-3.88 ??Second Trimester: 0.22-3.90 ??Third Trimester: 0.44-4.66 Blood 05/23/2022 8:32 PM EDT 05/23/2022 8:44 PM EDT Narrative Resulting Agency Comment Spec In Lab Ray Olivia MD CHEMISTRY ORDERABL ES Performing Organization Address [facility] Co de Phone Number [facility] [place] [address] * Basic Metabolic Panel (non-fasting) (05/23/2022 8:32 PM EDT) Glucose 98 65 - 199 mg/dL [facility] Comment:Diabetes: >=200 mg/d L plus symptoms Blood Urea Nitrogen 14 10 - 20 mg/dL [facility] Creatinine 0.95 0.80 - 1.50 mg/dL [facility] Sodium 138 135 - 145 mmol/L [facility] Potassium 4.5 3.5 - 5.0 mmol/L [facility] Comment: Please note: ??Patients with WBC >100,000 may have falsely elevated Potassium levels. ??For accurate Potassium quantification in these patients send serum separator tube (gold top) for subsequent determinations. ??Contact the Clinical Chemistry Laboratory if there are any questions. Chloride 100 98 - 107 mmol/L [facility] Carbon Dioxide 23 22 - 31 mmol/L [facility] Anion Gap 15 5 - 15 mmol/L [facility] Calcium 9.7 8.5 - 10.5 mg/dL [facility] Est Glomerular Filtration Rate 98 >=60 mL/min/1. 73 m?? [facility] Comment: This patient's estimated GFR [...] and symptoms in addition to eGFR. Blood 05/23/2022 8:32 PM EDT 05/23/2022 8:44 PM EDT Narrative Resulting Agency Comment Spec In Lab Ray Olviia MD CHEMISTRY ORDERABL ES [facility] [place] [address] documented in this encounter Visit Diagnoses Diagnosis Congenital hydrocephalus- Primary Chronic intractable headache, unspecified headache type Congenital hydrocephalus Seizures Other convulsions S/P ORGANIZATIONAL CONSULTANT shunt Presence of cerebrospinal fluid drainage device S/P ORGANIZATIONAL CONSULTANT shunt Presence of cerebrospinal fluid drainage device documented in this encounter Admitting Diagnoses Diagnosis Congenital hydrocephalus documented in this encounter Administered Medications Inactive Administered Medications - up to 3 most recent administrations Medication Order MAR Action Action Date Dose Rate Site acetaminophen (Tylenol) (32.02 mg/mL) oral liquid 1,000 mg 1,000 mg, Oral, EVERY 6 HOURS PRN, Starting on 05/24/22 at 0138, Until 05/25/22 at 1631, Pain, mild pain (1-3), Maximum dose of acetaminophen is 4,000 mg from all sources in 24 hours. When ordered for pain, acetaminophen should be given even when other ordered pain medications are indicated. , Routine acetaminophen (Tylenol) suppository 975 mg 975 mg, Rectal, EVERY 6 HOURS PRN, Starting on 05/24/22 at 0138, Until 05/25/22 at 1631, Pain, mild pain (1-3), Maximum dose of acetaminophen is 4,000 mg from all sources in 24 hours. When ordered for pain, acetaminophen should be given even when other ordered pain medications are indicated. , Routine acetaminophen (Tylenol) tablet 1,000 mg 1,000 mg, Oral, EVERY 6 HOURS PRN, Starting on 05/24/22 at 0138, Until 05/25/22 at 1631, Pain, mild pain (1-3), Maximum dose of acetaminophen is 4,000 mg from all sources in 24 hours. When ordered for pain, acetaminophen should be given even when other ordered pain medications are indicated. , Routine Given 05/25/2022 8:10 AM EDT 1,000 mg Given 05/24/2022 11:53 AM EDT 1,000 mg benztropine (Cogentin) tablet 0.5 mg 0.5 mg, Oral, DAILY, First dose on 05/24/22 at 0900, Until Discontinued, Routine Given 05/25/2022 8:10 AM EDT 0.5 mg ceFAZolin (Ancef) 1 g in dextrose 5% 50 mL infusion 1 g, Intravenous, EVERY 8 HOURS, 3 doses, First dose on 05/24/22 at 1600, Last dose on 05/25/22 at 0800, Administer over 30 Minutes, Indication for (Active or Suspected): Prophylaxis New Bag 05/25/2022 8:10 AM EDT 1 g 100 mL/ hr New Bag 05/24/2022 11:13 PM EDT 1 g 100 mL/hr New Bag 05/24/2022 4:36 PM EDT 1 g 100 mL/hr levothyroxine (Synthroid) tablet 25 mcg 25 mcg, Oral, DAILY, First dose on 05/24/22 at 0600, Until Discontinued, Routine Given 05/25/2022 5:39 AM EDT 25 mcg Given 05/24/2022 6:00 AM EDT 25 mcg lidocaine (Xylocaine) 2 % viscous solution 15 mL 15 mL, Mucous Membrane, EVERY 4 HOURS PRN, Starting on 05/24/22 at 1823, Until 05/25/22 at 1631, for sore throat, Gargle and spit (max of 8 doses per 24 hours period), Routine Given 05/24/2022 6:40 PM EDT 15 mLs lurasidone (Latuda) tablet 20 mg 20 mg, Oral, NIGHTLY, First dose (after last reorder) on 05/24/22 at 2100, Until Discontinued, Administer with a meal containing at least 350 calories , Routine Given 05/24/2022 8:55 PM EDT 20 mg magnesium oxide (Mag-Ox) tablet 400 mg 400 mg, Oral, 2 TIMES DAILY, First dose on 05/24/22 at 0140, Until Discontinued, Routine Given 05/24/2022 1:40 AM EDT 400 mg melatonin tablet 6 mg 6 mg, Oral, NIGHTLY, First dose on 05/24/22 at 2215, Until Discontinued, Routine Given 05/24/2022 10:01 PM EDT 6 mg ondansetron (pf) (Zofran) (2 mg/mL) injection 4 mg 4 mg, Intravenous, EVERY 8 HOURS PRN, Starting on 05/24/22 at 0138, Until 05/25/22 at 1631, Nausea, Vomiting, May repeat times one in 30 minutes if ineffective. If multiple antiemetics are ordered, use ondansetron first, prochlorperazine second, and metoclopramide third. ondansetron ODT (Zofran-ODT) disintegrating tablet 4 mg 4 mg, Oral, EVERY 8 HOURS PRN, Starting on 05/24/22 at 0138, Until 05/25/22 at 1631, Nausea, May repeat in 30 minutes if ineffective. If multiple antiemetics are ordered, use ondansetron first, prochlorperazine second, and metaclopramide third., Routine oxyCODONE (Roxicodone) tablet 10-15 mg 10-15 mg, Oral, EVERY 4 HOURS PRN, Starting on 05/24/22 at 0138, Until 05/25/22 at 1631, Pain, severe pain (7-10), Initial dose 10mg. If pain control not adequate in 60 minutes, give additional 5mg., Routine oxyCODONE (Roxicodone) tablet 5-10 mg 5-10 mg, Oral, EVERY 4 HOURS PRN, Starting on 05/24/22 at 0138, Until 05/25/22 at 1631, Pain, moderate pain (4-6), Initial dose 5mg. If pain control not adequate in 60 minutes, give additional 5mg., Routine prochlorperazine (Compazine) (5 mg/mL) injection 10 mg 10 mg, Intravenous, EVERY 6 HOURS PRN, Starting on 05/24/22 at 0138, Until 05/25/22 at 1631, Nausea, Vomiting, If multiple antiemetics are ordered, use ondansetron first, prochlorperazine second, and metoclopramide third. , Routine prochlorperazine (Compazine) tablet 10 mg 10 mg, Oral, EVERY 6 HOURS PRN, Starting on 05/24/22 at 0138, Until 05/25/22 at 1631, Nausea, Vomiting, If multiple antiemetics are ordered, use ondansetron first, prochlorperazine second and metoclopramide third. PO Preferred. If patient unable to take PO, may give IV if ordered., Routine sertraline (Zoloft) tablet 100 mg 100 mg, Oral, DAILY, First dose on 05/24/22 at 0900, Until Discontinued, Routine Given 05/25/2022 8:10 AM EDT 100 mg sodium chloride 0.9% infusion 100 mL/hr, Intravenous, CONTINUOUS, Starting on 05/24/22 at 0131, Until 05/24/22 at 1124 New Bag 05/24/2022 1:31 AM EDT 100 mL/hr 100 mL/hr documented in this encounter Active and Recently Administered Medications Times are shown in EDT. Scheduled Medication Order 05/23/2022 05/24/2022 05/25/2022 benztropine (Cogentin) tablet 0.5 mg 0.5 mg, Oral, DAILY, First dose on 05/24/22 at 0900, Until Discontinued, Routine 0831 (APR Hold - Provider: Admin Adt - Reason: Transfer to a Procedural area)0900 (Automatically Held - Provider: Admin Adt)1404 (MAR Unhold - Provider: Admin Adt) 0810 (Given - Provider: Ray De La Garza RN) ceFAZolin (Ancef) 1 g in dextrose 5% 50 mL infusion (COMPLETED) 1 g, Intravenous, EVERY 8 HOURS, 3 doses, First dose on 05/24/22 at 1600, Last dose on 05/25/22 at 0800, Administer over 30 Minutes, Indication for (Active or Suspected): Prophylaxis 1636 (New Bag - Provider: Ray De La Garza RN)1706 (Stopped - Provider: Ray De La Garza, EDWARD)2313 (New Bag - Provider: Meghan Bartlett RN)2343 (Stopped - Provider: Meghan Bartlett RN) 0810 (New Bag - Provider: Ray De La Garza, EDWARD)0840 (Stopped - Provider: Ray De La Garza, EDWARD) levothyroxine (Synthroid) tablet 25 mcg 25 mcg, Oral, DAILY, First dose on 05/24/22 at 0600, Until Discontinued, Routine 0600 (Given - Provider: Marianna Duran RN)0831 (APR Hold - Provider: Admin Adt - Reason: Transfer to a Procedural area)1404 (APR Unhold - Provider: Admin Adt) 0539 (Given - Provider: Meghan Bartlett RN) lurasidone (Latuda) tablet 20 mg 20 mg, Oral, NIGHTLY, First dose (after last reorder) on 05/24/22 at 2100, Until Discontinued, Administer with a meal containing at least 350 calories , Routine 2054 (Given - Provider: Meghan Bartlett RN) magnesium oxide (Mag-Ox) tablet 400 mg (CANCELED) 400 mg, Oral, 2 TIMES DAILY, First dose on 05/24/22 at 0140, Until Discontinued, Routine 0140 (Given - Provider: Marianna Duran RN)0831 (APR Hold - Provider: Admin Adt - Reason: Transfer to a Procedural area)0900 (Automatically Held - Provider: Admin Adt)1404 ([facility] Unhold - Provider: Admin Adt)2054 (Not Given - Provider: Meghan Bartlett RN - Reason: Patient/family refused) melatonin tablet 6 mg 6 mg, Oral, NIGHTLY, First dose on 05/24/22 at 2215, Until Discontinued, Routine 220 (Given - Provider: Meghan Bartlett RN) sertraline (Zoloft) tablet 100 mg 100 mg, Oral, DAILY, First dose on 05/24/22 at 0900, Until Discontinued, Routine 0831 (MAR Hold - Provider: Admin Adt - Reason: Transfer to a Procedural area)0900 (Automatically Held - Provider: Admin Adt)1404 (MAR Unhold - Provider: Admin Adt) 0810 (Given - Provider: Ray De La Garza RN) Continuous Medication Order 05/23/2022 05/24/2022 05/25/2022 sodium chloride 0.9% infusion (CANCELED)(Linked Group 1) 100 mL/hr, Intravenous, CONTINUOUS, Starting on 05/24/22 at 0131, Until 05/24/22 at 1124 0131 (New Bag - Provider: Marianna Duran RN)0831 (MAR Hold - Provider: Admin Adt - Reason: Transfer to a Procedural area)1124 (MAR Unhold - Provider: Main Trevino MD) PRN Medication Order 05/23/2022 05/24/2022 05/25/2022 acetaminophen (Tylenol) (32.02 mg/mL) oral liquid 1,000 mg(Linked Group 2) 1,000 mg, Oral, EVERY 6 HOURS PRN, Starting on 05/24/22 at 0138, Until 05/25/22 at 1631, Pain, mild pain (1-3), Maximum dose of acetaminophen is 4,000 mg from all sources in 24 hours. When ordered for pain, acetaminophen should be given even when other ordered pain medications are indicated. , Routine 0831 ([facility] Hold - Provider: Admin Adt - Reason: Transfer to a Procedural area)1124 (MAR Unhold - Provider: Yoli Gu RN)1153 (See Alternative - Provider: Yoli Gu RN) 0810 (See Alternative - Provider: Ray De La Garza RN) acetaminophen (Tylenol) suppository 975 mg(Linked Group 2) 975 mg, Rectal, EVERY 6 HOURS PRN, Starting on 05/24/22 at 0138, Until 05/25/22 at 1631, Pain, mild pain (1-3), Maximum dose of acetaminophen is 4,000 mg from all sources in 24 hours. When ordered for pain, acetaminophen should be given even when other ordered pain medications are indicated. , Routine 0831 (MAR Hold - Provider: Admin Adt - Reason: Transfer to a Procedural area)1124 (MAR Unhold - Provider: Yoli Gu RN)1153 (See Alternative - Provider: Yoli Gu RN) 0810 (See Alternative - Provider: Ray De La Garza RN) acetaminophen (Tylenol) tablet 1,000 mg(Linked Group 2) 1,000 mg, Oral, EVERY 6 HOURS PRN, Starting on 05/24/22 at 0138, Until 05/25/22 at 1631, Pain, mild pain (1-3), Maximum dose of acetaminophen is 4,000 mg from all sources in 24 hours. When ordered for pain, acetaminophen should be given even when other ordered pain medications are indicated. , Routine 0831 (APR Hold - Provider: Admin Adt - Reason: Transfer to a Procedural area)1124 (MAR Unhold - Provider: Yoli Gu, EDWARD)1153 (Given - Provider: Yoli Gu RN) 0810 (Given - Provider: Ray De La Garza RN) bacitracin zinc-polymyxin B (Polysporin) ointment (CANCELED) ONCE PRN, Starting on 05/24/22 at 1018, Until 05/25/22 at 1631, Intra-Operative (Intra-Procedure) 1018 (Given - Provider: Main Trevino MD) bisacodyL (Dulcolax) suppository 10 mg 10 mg, Rectal, DAILY PRN, Starting on 05/24/22 at 0138, Until 05/25/22 at 1631, Constipation, Administer if no bowel movement within 48 hours to achieve: (1) One bowel movement at least every 48 hours, AND (2) without straining. If multiple PRN bowel medications ordered, start with polyethylene glycoL, then lactulose, then oral bisacodyL, then bisacodyL suppository, then magnesium citrate, then tap water enema. Multiple medications may be given concomitantly for constipation., Routine 0831 (APR Hold - Provider: Admin Adt - Reason: Transfer to a Procedural area)1404 ([facility] Unhold - Provider: Admin Adt) bisacodyl EC (Dulcolax) tablet 10 mg 10 mg, Oral, 2 TIMES DAILY PRN, Starting on 05/24/22 at 0138, Until 05/25/22 at 1631, Constipation, DO NOT CRUSH OR OPEN Administer if no bowel movement within 48 hours to achieve: (1) One bowel movement at least every 48 hours, AND (2) without straining. If multiple PRN bowel medications ordered, start with polyethylene glycoL, then lactulose, then oral bisacodyL, then bisacodyL suppository, then magnesium citrate, then tap water enema. Multiple medications may be given concomitantly for constipation., Routine 0831 ([facility] Hold - Provider: Admin Adt - Reason: Transfer to a Procedural area)1404 ([facility] Unhold - Provider: Admin Adt) BUpivacaine-EPINEPHrine (Marcaine-epiNEPHrine) 0.25 %-1:200,000 injection (CANCELED) ONCE PRN, Starting on 05/24/22 at 0937, Until 05/25/22 at 1631, Intra-Operative (Intra-Procedure), Routine 09 (Given - Provider: Main Trevino MD) hydrALAZINE (Apresoline) (20 mg/mL) injection 10 mg 10 mg, Intravenous, EVERY 2 HOURS PRN, Starting on 05/24/22 at 0138, Until 05/25/22 at 1631, High Blood Pressure, For SBP greater than 160 mmHg. May repeat once in 15 minutes if blood pressure remains greater than 160 mmHg.Use if labetalol ineffective after 2 doses, Routine 08 ([facility] Hold - Provider: Admin Adt - Reason: Transfer to a Procedural area)1124 ([facility] Unhold - Provider: Yoli Gu, EDWARD) labetaloL (Normodyne) (5 mg/mL) injection solution 20 mg 20 mg, Intravenous, EVERY 2 HOURS PRN, Starting on 05/24/22 at 0138, Until 05/25/22 at 1631, High Blood Pressure, SBP greater than 160 mmHg. May repeat once in 15 minutes if blood pressure remains greater than 160 mmHg., Routine 0831 ([facility] Hold - Provider: Admin Adt - Reason: Transfer to a Procedural area)1124 ([facility] Unhold - Provider: Yoli Gu RN) lidocaine (Xylocaine) 2 % viscous solution 15 mL 15 mL, Mucous Membrane, EVERY 4 HOURS PRN, Starting on 05/24/22 at 1823, Until 05/25/22 at 1631, for sore throat, Gargle and spit (max of 8 doses per 24 hours period), Routine 1840 (Given - Provider: Ray De La Garza RN) ondansetron (pf) (Zofran) (2 mg/mL) injection 4 mg(Linked Group 3) 4 mg, Intravenous, EVERY 8 HOURS PRN, Starting on 05/24/22 at 0138, Until 05/25/22 at 1631, Nausea, Vomiting, May repeat times one in 30 minutes if ineffective. If multiple antiemetics are ordered, use ondansetron first, prochlorperazine second, and metoclopramide third. 0831 ([facility] Hold - Provider: Admin Adt - Reason: Transfer to a Procedural area)1404 ([facility] Unhold - Provider: Admin Adt) ondansetron ODT (Zofran-ODT) disintegrating tablet 4 mg(Linked Group 3) 4 mg, Oral, EVERY 8 HOURS PRN, Starting on 05/24/22 at 0138, Until 05/25/22 at 1631, Nausea, May repeat in 30 minutes if ineffective. If multiple antiemetics are ordered, use ondansetron first, prochlorperazine second, and metaclopramide third., Routine 0831 ([facility] Hold - Provider: Admin Adt - Reason: Transfer to a Procedural area)1404 ([facility] Unhold - Provider: Admin Adt) oxyCODONE (Roxicodone) tablet 10-15 mg(Linked Group 4) 10-15 mg, Oral, EVERY 4 HOURS PRN, Starting on 05/24/22 at 0138, Until 05/25/22 at 1631, Pain, severe pain (7-10), Initial dose 10mg. If pain control not adequate in 60 minutes, give additional 5mg., Routine 0831 ([facility] Hold - Provider: Admin Adt - Reason: Transfer to a Procedural area)1124 ([facility] Unhold - Provider: Yoli Gu RN) oxyCODONE (Roxicodone) tablet 5-10 mg(Linked Group 4) 5-10 mg, Oral, EVERY 4 HOURS PRN, Starting on 05/24/22 at 0138, Until 05/25/22 at 1631, Pain, moderate pain (4-6), Initial dose 5mg. If pain control not adequate in 60 minutes, give additional 5mg., Routine 0831 ([facility] Hold - Provider: Admin Adt - Reason: Transfer to a Procedural area)1124 ([facility] Unhold - Provider: Yoli Gu RN) polyethylene glycoL (Miralax) packet 17 g 17 g, Oral, DAILY PRN, Starting on 05/24/22 at 0138, Until 05/25/22 at 1631, Constipation, Administer if no bowel movement within 48 hours to achieve: (1) One bowel movement at least every 48 hours, AND (2) without straining. If multiple PRN bowel medications ordered, start with polyethylene glycoL, then lactulose, then oral bisacodyL, then bisacodyL suppository, then magnesium citrate, then tap water enema. Multiple medications may be given concomitantly for constipation., Routine 0831 ([facility] Hold - Provider: Admin Adt - Reason: Transfer to a Procedural area)1404 ([facility] Unhold - Provider: Admin Adt) prochlorperazine (Compazine) (5 mg/mL) injection 10 mg(Linked Group 5) 10 mg, Intravenous, EVERY 6 HOURS PRN, Starting on 05/24/22 at 0138, Until 05/25/22 at 1631, Nausea, Vomiting, If multiple antiemetics are ordered, use ondansetron first, prochlorperazine second, and metoclopramide third. , Routine 08 ([facility] Hold - Provider: Admin Adt - Reason: Transfer to a Procedural area)1124 ([facility] Unhold - Provider: Yoli Gu RN) prochlorperazine (Compazine) tablet 10 mg(Linked Group 5) 10 mg, Oral, EVERY 6 HOURS PRN, Starting on 05/24/22 at 0138, Until 05/25/22 at 1631, Nausea, Vomiting, If multiple antiemetics are ordered, use ondansetron first, prochlorperazine second and metoclopramide third. PO Preferred. If patient unable to take PO, may give IV if ordered., Routine 0831 ([facility] Hold - Provider: Admin Adt - Reason: Transfer to a Procedural area)1124 ([facility] Unhold - Provider: Yoli Gu RN) Linked Groups Order Group 1: NPO diet (Give Meds) (CANCELED) DIET EFFECTIVE NOW, Starting on 05/24/22 at 0130, Until Specified, Diet Restriction: NPO And sodium chloride 0.9% infusion (CANCELED)Jump to med 100 mL/hr, Intravenous, CONTINUOUS, Starting on 05/24/22 at 0131, Until 05/24/22 at 1124 Group 2: acetaminophen (Tylenol) (32.02 mg/mL) oral liquid 1,000 mgJump to med 1,000 mg, Oral, EVERY 6 HOURS PRN, Starting on 05/24/22 at 0138, Until 05/25/22 at 1631, Pain, mild pain (1-3), Maximum dose of acetaminophen is 4,000 mg from all sources in 24 hours. When ordered for pain, acetaminophen should be given even when other ordered pain medications are indicated. , Routine Or acetaminophen (Tylenol) tablet 1,000 mgJump to med 1,000 mg, Oral, EVERY 6 HOURS PRN, Starting on 05/24/22 at 0138, Until 05/25/22 at 1631, Pain, mild pain (1-3), Maximum dose of acetaminophen is 4,000 mg from all sources in 24 hours. When ordered for pain, acetaminophen should be given even when other ordered pain medications are indicated. , Routine Or acetaminophen (Tylenol) suppository 975 mgJump to med 975 mg, Rectal, EVERY 6 HOURS PRN, Starting on 05/24/22 at 0138, Until 05/25/22 at 1631, Pain, mild pain (1-3), Maximum dose of acetaminophen is 4,000 mg from all sources in 24 hours. When ordered for pain, acetaminophen should be given even when other ordered pain medications are indicated. , Routine Group 3: ondansetron ODT (Zofran-ODT) disintegrating tablet 4 mgJump to med 4 mg, Oral, EVERY 8 HOURS PRN, Starting on 05/24/22 at 0138, Until 05/25/22 at 1631, Nausea, May repeat in 30 minutes if ineffective. If multiple antiemetics are ordered, use ondansetron first, prochlorperazine second, and metaclopramide third., Routine Or ondansetron (pf) (Zofran) (2 mg/mL) injection 4 mgJump to med 4 mg, Intravenous, EVERY 8 HOURS PRN, Starting on 05/24/22 at 0138, Until 05/25/22 at 1631, Nausea, Vomiting, May repeat times one in 30 minutes if ineffective. If multiple antiemetics are ordered, use ondansetron first, prochlorperazine second, and metoclopramide third. Group 4: oxyCODONE (Roxicodone) tablet 5-10 mgJump to med 5-10 mg, Oral, EVERY 4 HOURS PRN, Starting on 05/24/22 at 0138, Until 05/25/22 at 1631, Pain, moderate pain (4-6), Initial dose 5mg. If pain control not adequate in 60 minutes, give additional 5mg., Routine Or oxyCODONE (Roxicodone) tablet 10-15 mgJump to med 10-15 mg, Oral, EVERY 4 HOURS PRN, Starting on 05/24/22 at 0138, Until 05/25/22 at 1631, Pain, severe pain (7-10), Initial dose 10mg. If pain control not adequate in 60 minutes, give additional 5mg., Routine Group 5: prochlorperazine (Compazine) tablet 10 mgJump to med 10 mg, Oral, EVERY 6 HOURS PRN, Starting on 05/24/22 at 0138, Until 05/25/22 at 1631, Nausea, Vomiting, If multiple antiemetics are ordered, use ondansetron first, prochlorperazine second and metoclopramide third. PO Preferred. If patient unable to take PO, may give IV if ordered., Routine Or prochlorperazine (Compazine) (5 mg/mL) injection 10 mgJump to med 10 mg, Intravenous, EVERY 6 HOURS PRN, Starting on 05/24/22 at 0138, Until 05/25/22 at 1631, Nausea, Vomiting, If multiple antiemetics are ordered, use ondansetron first, prochlorperazine second, and metoclopramide third. , Routine documented in this encounter Care Teams Photographic Equipment Mechanic Relationship Specialty Start Date End Date JoséIrma vicente, [place] [address] PCP - General Family Medicine 09/20/20 08/20/22 documented as of this encounter
--- OUTSIDE RECORDS SUMMARY | 2024-02-29 15:48 | XMS_ITS | Encounter Summary ---
[facility] [place] [address] Care Team Providers Care Space Control Supervisor Name Role Phone Irma Gates APRN Primary Care Provider Encounter Details Date Type Department Care Team (Latest Contact Info) Description 06/09/2022 Travel Social History Tobacco Use Types Packs/Day [...] on filedocumented in this encounter Care Teams Space Control Supervisor Relationship Specialty Start Date End Date Irma Gates APRN [address] [place] [address] PCP - General Family Medicine 09/20/20 08/20/22 documented as of this encounter
--- OUTSIDE RECORDS SUMMARY | 2024-02-29 15:48 | XMS_ITS | Encounter Summary ---
Author Organization [facility] Address [facility] [place] [address] Care Team Providers Care Glass Block Bender Name Role Phone YajairaIrma LIZA Primary Care Provider [phone] Encounter Details Date Type Department Care Team (Latest Contact Info) Description 06/10/2022 1:15 PM EDT - 06/10/2022 11:59 PM EDT Hospital Encounter XRay at [address] [place] [address] Chronic intractable headache, unspecified headache type Discharge [...] Sig Dispensed Refills Start Date End Date ARIPiprazole (Abilify) 10 mg tablet Take 10 mg by mouth daily. 05/29/2022 Aimovig Autoinjector 70 mg/mL Auto-Injector Inject 70 mg as directed every 30 days. On the 22 of every month 04/29/2022 levothyroxine (SYNTHROID) 25 [...] Name Priority Date/Time Associated Diagnosis Comments XR SHUNT SERIES Routine 06/10/2022 1:37 PM EDT Chronic intractable headache, unspecified headache type documented in this encounter Results * XR Shunt Series (06/10/2022 1:37 PM EDT) Anatomical Region Laterality Modality N/A Digital Radiogra phy Impressions 06/10/2022 4:08 PM EDT 1. ??There is a right frontal approach ventriculoperitoneal shunt catheter, terminating in the left anterior abdominal cavity. At roughly the T8-9 level on both the AP and lateral projections of the chest, there is poor visualization of the shunt catheter which may be due to suboptimal penetration of the x-rays on each of these views, and as such, discontinuity of the segment of the shunt catheter at this level is not excluded. If there is high clinical concern for shunt malfunction or discontinuity, consider repeat AP and lateral projections of the chest or CT of the chest for further evaluation. 2. ??Similar mild kinking of the shunt catheter at the level of C5. Thank you for letting us participate in the care of this patient. ??If you are a health care provider and have any questions regarding this report, please contact the number below. ??For patients who have questions please contact the health health care manager that requested your imaging first. ? Narrative 06/10/2022 4:08 PM EDT EXAMINATION: XR SHUNT SERIES CLINICAL HISTORY: s/p [employer] shunt (valve) revision (as entered by ordering provider in the order requisition) TECHNIQUE: AP and lateral views of the skull and cervical spine. AP and lateral views the chest. AP and lateral views of the abdomen. COMPARISON: CT of the head from earlier today. Shunt series from 05/23/2022. FINDINGS: There is a right frontal approach ventriculoperitoneal shunt. There is a lucent component in the expected location of the shunt valve. Similar mild kinking of the shunt catheter at the level of C5. The shunt catheter projects over the right hemithorax and right abdomen through much of its course. Roughly the T8-T9 level on both the AP and lateral projections of the chest, there is poor visualization of the shunt catheter. There is an additional catheter fragment projecting over the superior mediastinum and to the left of the superior mediastinum, unchanged since 05/23/2022. The distal shunt catheter tip terminates in the left anterior abdominal cavity. Surgical clips project over the left and right abdomen. Procedure Note Aria Tsai MD - 06/10/2022 EXAMINATION: XR SHUNT SERIES CLINICAL HISTORY: s/p [employer] shunt (valve) revision (as entered by orderingprovider in the order requisition) TECHNIQUE: AP and lateral views of the skull and cervical spine. AP and lateral viewsthe chest. AP and lateral views of the abdomen. COMPARISON: CT of the head from earlier today. Shunt series from 05/23/2022. FINDINGS: There is a right frontal approach ventriculoperitoneal shunt. There is alucent component in the expected location of the shunt valve. Similar mild kinking of the shunt catheter at the level of C5. The shunt catheter projects over the right hemithorax and right abdomenthrough much of its course. Roughly the T8-T9 level on both the AP and lateral projections of thechest, there is poor visualization of the shunt catheter. There is an additional catheter fragment projecting over the superior mediastinum and to the left of the superior mediastinum, unchanged since 05/23/2022. The distal shunt catheter tip terminates in the left anterior abdominal cavity. Surgical clips project over the left and right abdomen. IMPRESSION 1. There is a right frontal approach ventriculoperitoneal shuntcatheter, terminating in the left anterior abdominal cavity. At roughly the T8-9level on both the AP and lateral projections of the chest, there is poorvisualization of the shunt catheter which may be due to suboptimal penetration of thex-rays on each of these views, and as such, discontinuity of the segment of theshunt catheter at this level is not excluded. If there is high clinical concernfor shunt malfunction or discontinuity, consider repeat AP and lateralprojections of the chest or CT of the chest for further evaluation. 2. Similar mild kinking of the shunt catheter at the level of C5. Thank you for letting us participate in the care of this patient. If youare a health care provider and have any questions regarding this report,please contact the number below. For patients who have questions please contactthe health health care manager that requested your imaging first. Rhoda Jimenez MD IMG DX ORDERABLES documented in this encounter Visit Diagnoses Diagnosis Chronic intractable headache, unspecified headache type documented in this encounter Care Teams Glass Block Bender Relationship Specialty Start Date End [place] [address] PCP - General Family Medicine 09/20/20 08/20/22 documented as of this encounter
--- OUTSIDE RECORDS SUMMARY | 2024-02-29 15:48 | XMS_ITS | Encounter Summary ---
[facility] [place] [address] Care Team Providers Care Channel Machine Operator Name Role Phone YajairaIrma LIZA Primary Care Provider [phone] Encounter Details Date Type Department Care Team (Late st Contact Info) Description 08/18/2022 [place] [address] Mandy Lauren RN Social History Tobacco Use [...] * Telephone Encounter - Aria Cohn - 08/18/2022 11:40 AM EDT Pt has been scheduled for OV with Sonia Escalona on 08/19 [id number] am. No appt card needed Closing encounter * Telephone Encounter - Mandy Lauren RN - 08/18/2022 11:06 AM EDT Copied from [facility] #[id number]. Topic: Specialty Dept CRMs - Triage >> Aug 18, 2022 10:41 AM Merari Brown wrote: Triage Message Specialist: Sonia Escalona APRN Relationship (if other than patient-full name): Patient Symptom: shunt behind his right ear is swollen and starting to turn red When did symptom begin Noticed today Additional Comments: Patient calling and states today he noticed the shunt behind his right ear is swollen and starting to turn red. Patient describes the pain as 2 or 3 out of 10. Please call to discuss. Caller: Ever Reason for call: see above Temp 99, noticed swelling at incision today, redness at incision, no drainage noted but no chills. No increase in headaches, more tired in the past two days, no vision or balance changes, appetite has decreased a bit. Plan: Asked Ever to send us a picture of his incision via [facility]. Will review and advise documented in this encounter Plan of Treatment Not on file documented as of this encounter Visit Diagnoses Not on filedocumented in this encounter Care Teams Channel Machine Operator Relationship Specialty Start Date End Date Irma Gates [place] [address] PCP - General Family Medicine 09/20/20 08/20/22 documented as of this encounter
--- OUTSIDE RECORDS SUMMARY | 2024-02-29 15:48 | XMS_ITS | Encounter Summary ---
[place] [address] Care Team Providers Care Electronics Parts Sales Representative Name Role Phone Ana Maria Gatesh LIZA Primary Care Provider [phone] Reason for Referral * Diagnostic Test (STAT) - Closed Specialty Diagnoses / Procedures Referred By Contac t Referred To Contact Radiology Diagnoses S/P CHEMICAL RECLAMATION EQUIPMENT OPERATOR shunt Procedures CT Head wo Contrast (Generic) Sonia Escalona APRN [facility] [place] [address] [place] [address] [facility] [place] [address] Referral ID Status Reason Start Date Expiration Date V isits Requested Visits Authorized [id number] Closed Specialty Service Requested 08/19/2022 02/19/2024 1 1 Reason for Visit * Auth/Cert (Routine) Specialty Diagnoses / Procedures Referred By Contac t Referred To Contact Diagnoses Headache Shunt infection Rhoda Jimenez MD [facility] [place] [address] [place] [address] [facility] Referral ID Status Reason Start Date Expiration Date Visits Re quested Visits Authorized [id number] 1 1 Encounter Details Date Type Department Care Team (Late st Contact Info) Description 08/19/2022 11:40 AM EDT [place] [address] Sonia Escalona APRN [facility] [place] [address] S/P CHEMICAL RECLAMATION EQUIPMENT OPERATOR shunt; Hydrocephalus, congenital Social History Tobacco Use Types Packs/Day Years [...] Sign Reading Time Taken Comments Blood Pressure 123/78 08/19/2022 11:41 AM EDT Pulse 78 08/19/2022 11:41 AM EDT Temperature 35.7 ??C (96.2 ??F) 08/19/2022 11:41 AM E DT Respiratory Rate 18 08/19/2022 11:41 AM EDT Oxygen Saturation 96% 08/19/2022 11:41 AM EDT Inhaled Oxygen Concentration - - Weight 93.9 kg (207 lb) 08/19/2022 11:41 AM EDT Height 167.6 cm (5' 6) 08/19/2022 11:41 AM EDT Body Mass Index 33.41 08/19/2022 11:41 AM EDT documented in this encounter Progress Notes * Sonia Escalona APRN - 08/19/2022 11:40 AM EDT Name: Chapin Costa : 1970 PCP: Irma Gates APRN REF: Irma Gates Date of Service: 08/19/2022 CHIEF COMPLAINT Headache, fatigue, shunt site tenderness HISTORY OF PRESENT ILLNESS Ever Costa returned to clinic today; he is a 51 y.o. male who underwent a R VPS shunt revision on05/24/[address] Jimenez after the previous shunt valve was found to be not working. 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 Today he reports noticing redness and tenderness at shunt site, headaches and fatigue for the past week as well and feeling like he has no appetite. I've been sleeping a lot. He denies recent infection or URI. Balance has been fine. Bowel and bladder working well. No vision or hearing changes, dizziness or imbalance. He does report some soreness with neck flexion. Non smoker, no vision, hearing changes, no sensory changes. Non smoker, no h/o DM. He reports feeling warm, and sweaty at times and has checked temp at home which has been at most 99.3 in the past week. PAST MEDICAL HISTORY Patient Active Problem List Diagnosis Code S/P CHEMICAL RECLAMATION EQUIPMENT OPERATOR shunt Z98.2 Persistent headaches R51.9 Headache R51.9 Cervicalgia M54.2 Seizures R56.9 Hydrocephalus G91.9 Congenital hydrocephalus Q03.9 Past Medical History: Diagnosis Date Depression Hearing [...] 4.06) performed by Shan Rivero MD at [facility] OSC PRO EXTRACTION ERUPTED TOOTH/EXR N/A 10/18/2020 EXTRACTION, ERUPTED TOOTH OR EXPOSED ROOT (WRVU 0.62) performed by Shan Rivero MD at [facility] OSC PRO IMPACT TOOTH REM BONY W/COMP N/A 10/18/2020 SURGICAL EXTRACTIONS, REMOVAL OF IMPACTED TOOTH, COMPLETELY BONY WITH UNUSUAL SURGICAL COMPLICATIONS (WRVU 2.91) performed by Shan Rivero MD at [facility] OSC PRO IMPACT TOOTH REMOV COMP BONY N/A 10/18/2020 SURGICAL EXTRACTIONS, REMOVAL OF IMPACTED TOOTH, COMPLETELY BONY (WRVU 1.93) performed by Shan Rivero MD at [facility] OSC PRO REMOVAL ERUPTED TOOTH WITH ELEVATION OF MUCOPERIOSTEAL FLAP Bilateral 10/18/2020 SURGICAL EXTRACTIONS REQUIRING ELEVATION OF MUCOPERIOSTEAL FLAP AND REMOVAL OF BONE OR SECTION OF TOOTH (WRVU 1.09) performed by Shan Rivero MD at [facility] OSC PRO UNLISTED PROCEDURE NERVOUS SYSTEM Right 05/24/2022 EXPLORATION VENTRICULO-PERITONEAL SHUNT (WRVU 25.48) performed by Rhoda Jimenez MD at [facility] MAIN OR SHOULDER SURGERY ULNAR TUNNEL RELEASE Right VENTRICULOPERITONEAL SHUNT Multiple revisions - ~46 prior revisions ALLERGIES Allergies Allergen Reactions Latex Other reaction(s): hives with latex powdered gloves Other reaction(s): hives with latex powdered gloves Penicillins Other reaction(s): Anaphylaxsis, RASH Vancomycin Other reaction(s): Skin Rash Tegaderm [Transparent Dressings] Itching Vancomycin Analogues Vancomycin Hcl MEDICATIONS Current Outpatient Medications: atorvastatin (Lipitor) 10 mg tablet, Take 10 mg by mouth daily., Disp: , Rfl: hydrOXYzine (Atarax) 25 mg tablet, Take 25 mg by mouth daily., Disp: , Rfl: cholecalciferol, Vitamin D3, 50 mcg (2,000 unit) Capsule, Take by mouth daily., Disp: , Rfl: omeprazole (PriLOSEC) [address] capsule, Take by mouth daily., Disp: , Rfl: Vitamin B-12 5,000 mcg Tablet, Sublingual, Take by mouth daily., Disp: , Rfl: ARIPiprazole (Abilify) 10 mg tablet, Take 10 mg by mouth daily., Disp: , Rfl: cephALEXin (Keflex) 500 mg capsule, Take 1 capsule by mouth 3 times daily., Disp: 30 capsule, Rfl: 0 oxyCODONE (Roxicodone) 5 mg tablet, Take 1 tablet by mouth every 6 hours as needed for Pain., Disp:5 tablet, Rfl: 0 polyethylene glycoL (Miralax) 17 gram oral powder packet, Take 17 g by mouth daily as needed., Disp: 14 each, Rfl: 0 Aimovig Autoinjector 70 mg/mL Auto-Injector, Inject 70 mg as directed every 30 days. On the , Disp: , Rfl: benztropine (Cogentin) 0.5 mg Tablet, Take 1 tablet by mouth nightly., Disp: , Rfl: acetaminophen (Tylenol) 500 mg Tablet, Take 500 mg by mouth every 6 hours as needed. T, Disp: , Rfl: Latuda 40 mg Tablet, Take 40 mg by mouth every evening., Disp: , Rfl: rizatriptan (MAXALT) 10 mg [...] Rfl: sertraline (ZOLOFT) 100 mg Tablet, Take 100 mg by mouth daily., Disp: , Rfl: 0 testosterone cypionate (DEPOTESTOSTERONE CYPIONATE) 200 mg/mL Oil, Inject 250 mg into the muscle every 14 days., Disp: , Rfl: 0 SOCIAL HISTORY Social History Socioeconomic History Marital status: Spouse [...] on file Housing Stability: Not on file FAMILY HISTORY Family History Problem Relation Age of Onset Muscular Dystrophy Cousin REVIEW OF SYSTEMS General: Denies recent fever, chills, or weight changes. + for fatigue Eyes: Denies recent changes in vision. ENT: Denies recent changes in hearing or dysphagia. Cardiovascular: Denies CP, palpitations, or irregular heart beat. Respiratory: Denies SOB, cough, or recent respiratory infections. GI: Denies N/V/D/C or change in appetite. : Denies changes in urination; frequency, urgency or burning. Musculoskeletal: Denies weakness, numbness, or tingling in extremities. + for myalgia Heme: Denies recent or history of bleeding or clotting disorder. Neuro: Denies recent changes in mentation, memory, or behavior. + Headaches PHYSICAL EXAM BP 123/78 (BP Location (NBP): Right arm, Patient Position: Sitting, BP Cuff Sizes: Large Adult (32-43 cm)) Pulse 78 Temp 35.7 ??C (96.2 ??F) (Temporal) Resp 18 Ht 167.6 cm (5' 6) Wt 93.9 kg (207 lb) SpO2 96% BMI 33.41 kg/m?? Constitutional: Well developed, well nourished, in NAD. Neuro: Mental Status/Cognitive: Awake, alert, answers questions appropriately. Cranial Nerves: CN II - Vision grossly intact Dysconjugate gaze (R exotropia, baseline) CN III, IV, - EOMI CN V - V1-3 dermatomes intact to light touch CN VII - No facial asymmetry CN VIII - Hearing intact to limited bedside exam CN IX, X - Uvula midline CN XI - Shoulder shrug 5/5 bilaterally CN XII - Tongue midline Motor: Moving all extremities well; no pronator drift. Sensory: Sensation grossly intact to light touch in all four extremities. Cerebellar: No dysmetria with finger to nose testing bilaterally Gait: Steady. TTP at shunt site; mild erythema at site of healed shunt incision; no bogginess at shunt site. ASSESSMENT & PLAN This is a 51 y.o. 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 Jimneez after the previous shunt valve was found to be not working and returns today in follow up after a week of increased occipital headaches and shunt tenderness and fatigue. He is a febrile today BP and HR are not elevated. I ordered a head CT and lab work (WBC and Sed rate) and ordered chest XR to review for continuity of shunt tubing. The previous shunt series, done on06/10 showed an area of possible discontinuity. Today's XR does not appear to show any discontinuityin the R chest. The head CT today shows slight decrease in the caliber of the lateral ventricles. Inflammatory markers are mildly increased compared to 05/1822. Shunt valve reservoir was depressed and refilled without hesitation. Based on head CT and XR, stable vital signs I don't see a need for an immediate admission, but we agreed that to recheck labs in one week at [facility]. WBC and sed rate are slightly elevated today at 13 and 34, respectively. If he develops a fever of 101 or has, worsening headache, neck stiffness, lethargy. nausea, vomiting he should seek urgent evaluation. Plan was reviewed with MARVA Hall and Dr. Jimenez who are in favor also of watching closely. Plan Repeat labs in one week Follow up call or in person appointment in one week. Sonia Escalona APRN documented in this encounter Plan of Treatment Scheduled Orders Name Type Priority Associated Diagnoses Orde r Schedule XR Chest PA 1 view w Abdomen Imaging Routine S/P CHEMICAL RECLAMATION EQUIPMENT OPERATOR shunt Expected: 08/19/2022, Expires: 09/18/2022 XR Abdomen Flat & Upright Imaging Routine S/P CHEMICAL RECLAMATION EQUIPMENT OPERATOR shunt Expected: 08/19/2022, Expires: 09/18/2022 documented as of this encounter Procedures Procedure Name Priority Date/Time Associated Diagnosis Comments SEDIMENTATION RATE Routine 08/19/2022 1: 34 PM EDT S/P CHEMICAL RECLAMATION EQUIPMENT OPERATOR shunt WBC Routine 08/19/2022 1:34 PM EDT S/P CHEMICAL RECLAMATION EQUIPMENT OPERATOR shunt Hydrocephalus, congenital documented in this encounter Results * (ABNORMAL) WBC (09/01/2022 11:20 AM EDT) White Blood Cell 10.6(H) 4.0 - 9.5 x10(3)/[facility] LABORATORY Blood 09/01/2022 11:2 0 AM EDT 09/01/2022 11:30 AM EDT Narrative Resulting Agency Comment Spec In Lab Sonia Escalona APRN HEMATOLOGY [facility] [address] [place] [address] * (ABNORMAL) Sedimentation rate (09/01/2022 11:20 AM EDT) Sedimentation Rate Automated 29(H) 2 - 28 mm/hr [facility] Comment: Effective February 02, 2019 new capillary photometric technology has resulted in a change in reference ranges. It is recommended that each ESR result be reviewed with its own age appropriate reference range. Blood 09/01/2022 11:2 0 AM EDT 09/01/2022 11:30 AM EDT Narrative Resulting Agency Comment Spec In Lab Sonia Laurie Mcmahonaristeo [facility] HEMATOLOGY [facility] [address] [place] [address] * XR Chest PA & Lateral (Generic) (08/19/2022 1:59 PM EDT) Anatomical Region Laterality Modality Chest N/A Digital Radiogra phy Impressions 08/20/2022 8:24 AM EDT Image shunt tubing appears intact although not well visualized along the right hilum and right heart border and right upper quadrant Thank you for letting us participate in the care of this patient. ??If you are a health care provider and have any questions regarding this report, please contact the number below. ??For patients who have questions please contact the health lawn caretaker that requested your imaging first. ? Narrative 08/20/2022 8:24 AM EDT EXAMINATION: XR CHEST PA AND LATERAL (GENERIC) CLINICAL HISTORY: check shunt tubing TECHNIQUE: PA and lateral views of the chest COMPARISON: No prior chest CTs for comparison FINDINGS: The cardiomediastinal silhouette is within normal limits The lungs are clear. No pleural effusion or pneumothorax Cholecystectomy. The imaged shunt tubing appears intact although not well visualized over the right hilum and right heart and right upper quadrant Procedure Note Chapin Lee MD - 08/20/2022 EXAMINATION: XR CHEST PA AND LATERAL (GENERIC) CLINICAL HISTORY: check shunt tubing TECHNIQUE: PA and lateral views of the chest COMPARISON: No prior chest CTs for comparison FINDINGS: The cardiomediastinal silhouette is within normal limits The lungs are clear. No pleural effusion or pneumothorax Cholecystectomy. The imaged shunt tubing appears intact although not well visualized overthe right hilum and right heart and right upper quadrant IMPRESSION Image shunt tubing appears intact although not well visualized along theright hilum and right heart border and right upper quadrant Thank you for letting us participate in the care of this patient. If youare a health care provider and have any questions regarding this report,please contact the number below. For patients who have questions please contactthe health lawn caretaker that requested your imaging first. Sonia Escalona [facility] IMG DX ORDERABLES * (ABNORMAL) WBC (08/19/2022 1:34 PM EDT) Pathologist [facility] White Blood Cell 13.0(H) 4.0 - 9.5 x10(3)/mcL [facility] Blood 08/19/2022 1:34 PM EDT 08/19/2022 2:07 PM EDT Narrative Resulting Agency Comment Spec In Lab Sonia Escalona APRN HEMATOLOGY [facility] [place] [address] * (ABNORMAL) Sedimentation rate (08/19/2022 1:34 PM EDT) Sedimentation Rate Automated 34(H) 2 - 28 mm/hr [facility] Comment: Effective February 02, 2019 new capillary photometric technology has resulted in a change in reference ranges. It is recommended that each ESR result be reviewed with its own age appropriate reference range. Blood 08/19/2022 1:34 PM EDT 08/19/2022 2:07 PM EDT Narrative Resulting Agency Comment Spec In Lab Sonia Escalona [facility] HEMATOLOGY [facility] [place] [address] * CT Head wo Contrast (Generic) (08/19/2022 1:00 PM EDT) Anatomical Region Laterality Modality Head Computed Tomogra phy Impressions 08/19/2022 1:19 PM EDT 1. ??Decreased, now slitlike, caliber of the shunted ventricular system, with persistent dilation of the anterior right temporal horn suggesting mild entrapment. 2. ??Unchanged soft tissue thickening versus minimal fluid at the periphery of the right retroauricular shunt reservoir. No new soft tissue fluid collections identified. Thank you for letting us participate in the care of this patient. ??If you are a health care provider and have any questions regarding this report, please contact the number below. ??For patients who have questions please contact the health lawn caretaker that requested your imaging first. ? Narrative 08/19/2022 1:19 PM EDT EXAMINATION: CT HEAD WO CONTRAST (GENERIC) CLINICAL HISTORY: Hydrocephalus, shunted, follow up s/p SHunt revision on 05/24/22; now iwth increased tenderness and redness at shunt site TECHNIQUE: CT head performed without intravenous contrast administration. COMPARISON: CT head June 10, 2022 FINDINGS: Right frontal ventriculoperitoneal shunt catheter terminates in similar position to left of midline in the region of the anterior left lateral ventricle. There is decreased caliber of the lateral and third ventricles, which are now slitlike, with the exception of mild dilation of the anterior right temporal horn. No acute intracranial hemorrhage, midline shift, mass effect or extra-axial collection. There is mild patchy bilateral supratentorial white matter hypoattenuation suggesting chronic microvascular change. Cerebellar tonsils are slightly low-lying, at the level of the foramen magnum, with minimal crowding, unchanged. Cerebral aqueduct is not patent, as before. Basilar cisterns are patent. There is a small amount of fluid and/or soft tissue thickening at the periphery of the right retroauricular shunt reservoir. This is unchanged in appearance since the prior study. No new fluid collections at the periphery of the visible catheter tubing. Left frontal and 2 right parietal gala holes and a right temporal craniectomy defect are unchanged. Procedure Note Carley Delgado MD - 08/19/2022 EXAMINATION: CT HEAD WO CONTRAST (GENERIC) CLINICAL HISTORY: Hydrocephalus, shunted, follow up s/p SHunt revision on 05/24/22; now iwth increased tenderness and redness atshunt site TECHNIQUE: CT head performed without intravenous contrast administration. COMPARISON: CT head June 10, 2022 FINDINGS: Right frontal ventriculoperitoneal shunt catheter terminates in similarposition to left of midline in the region of the anterior left lateral ventricle.There is decreased caliber of the lateral and third ventricles, which are now slitlike, with the exception of mild dilation of the anterior righttemporal horn. No acute intracranial hemorrhage, midline shift, mass effect orextra-axial collection. There is mild patchy bilateral supratentorial white matter hypoattenuation suggesting chronic microvascular change. Cerebellartonsils are slightly low-lying, at the level of the foramen magnum, with minimalcrowding, unchanged. Cerebral aqueduct is not patent, as before. Basilar cisternsare patent. There is a small amount of fluid and/or soft tissue thickening at theperiphery of the right retroauricular shunt reservoir. This is unchanged inappearance since the prior study. No new fluid collections at the periphery of thevisible catheter tubing. Left frontal and 2 right parietal gala holes and a right temporalcraniectomy defect are unchanged. IMPRESSION 1. Decreased, now slitlike, caliber of the shunted ventricular system,with persistent dilation of the anterior right temporal horn suggesting mild entrapment. 2. Unchanged soft tissue thickening versus minimal fluid at the peripheryof the right retroauricular shunt reservoir. No new soft tissue fluidcollections identified. Thank you for letting us participate in the care of this patient. If youare a health care provider and have any questions regarding this report,please contact the number below. For patients who have questions please contactthe health lawn caretaker that requested your imaging first. Sonia Escalona APRN IMG CT ORDERABLES documented in this encounter Visit Diagnoses Diagnosis S/P CHEMICAL RECLAMATION EQUIPMENT OPERATOR shunt Presence of cerebrospinal fluid drainage device Hydrocephalus, congenital Congenital hydrocephalus S/P CHEMICAL RECLAMATION EQUIPMENT OPERATOR shunt Presence of cerebrospinal fluid drainage device S/P CHEMICAL RECLAMATION EQUIPMENT OPERATOR shunt Presence of cerebrospinal fluid drainage device documented in this encounter Care Teams Electronics Parts Sales Representative Relationship Specialty Start Date End Date [place] [address] PCP - General Family Medicine 09/20/20 08/20/22 documented as of this encounter
--- OUTSIDE RECORDS SUMMARY | 2024-02-29 15:48 | XMS_ITS | Encounter Summary ---
Author Organization [facility] [place] [address] Care Team Providers Care Principal Security Architect Name Role Phone Irma Gates APRN Primary Care Provider [phone] Encounter Details Date Type Department Care Team (Late st Contact Info) Description 06/16/2022 Telephone [place] [address] Mandy Lauren RN Social History Tobacco Use [...] Telephone Encounter - Mandy Lauren RN - 06/16/2022 4:03 PM EDT Copied from [facility] #[id number]. Topic: Specialty Dept CRMs - Generic Call >> Jun 16, 2022 2:47 PM Megan Martinez wrote: Specialist: Iqra Scott APRN Relationship (if other than patient-full name): self Chapin Costa Reason for Call: Chapin wanted to pass along an update to the office that he is overall doing much better and no longer has a fever. Caller: Ever Reason for call: Ever is feeling really good, has a few more days of keflex. I asked that he send anupdated picture of his incision for Sonia to review as well. He agreed to send this via [facility]. documented in this encounter Plan of Treatment Not on file documented as of this encounter Visit Diagnoses Not on filedocumented in this encounter Care Teams Principal Security Architect Relationship Specialty Start Date End Date Irma [place] [address] PCP - General Family Medicine 09/20/20 08/20/22 documented as of this encounter
--- OUTSIDE RECORDS SUMMARY | 2024-02-29 15:48 | XMS_ITS | Encounter Summary ---
Author Organization [facility] [place] [address] Care Team Providers Care Quilting Machine Operator Name Role Phone Irma Gates APRN Primary Care Provider Encounter Details Date Type Department Care Team (Latest Contact Info) Description 08/18/2022 Travel Social History Tobacco Use Types Packs/Day [...] on filedocumented in this encounter Care Teams Quilting Machine Operator Relationship Specialty Start Date End Date Irma Gates APRN [place] [place] [address] PCP - General Family Medicine 09/20/20 08/20/22 documented as of this encounter
--- OUTSIDE RECORDS SUMMARY | 2024-02-29 15:48 | XMS_ITS | Encounter Summary ---
Author Organization [facility] [place] [address] Care Team Providers Care Website Programmer Name Role Phone Ana Maria Gatesh LIZA Primary Care Provider [phone] Encounter Details Date Type Department Care Team (Late st Contact Info) Description 06/17/2022 Tele[place] [address] Sonia Escalona APRN [facility] [place] [address] Social History Tobacco Use Types Packs/Day Years [...] Telephone Encounter - Bell Kuhn Zelda - 06/17/2022 10:24 AM EDT Called pt scheduled CTH and Wilbert for 09/08 appts BCB sent myD message to pt re: incision ----- Message from Sonia Escalona APRN sent at 06/10/2022 3:24 PM EDT ----- Please call Ever next week to check on incision (they will send a cell photo) documented in this encounter Plan of Treatment Not on file documented as of this encounter Visit Diagnoses Not on filedocumented in this encounter Care Teams Website Programmer Relationship Specialty Start Date End [place] [address] PCP - General Family Medicine 09/20/20 08/20/22 documented as of this encounter
--- OUTSIDE RECORDS SUMMARY | 2024-02-29 15:48 | XMS_ITS | Encounter Summary ---
Author Organization [facility] [place] [address] Care Team Providers Care Manager Employee Relations Name Role Phone Peter Lebron Primary Care Provider [phone] Encounter Details Date Type Department Care Team (Latest Contact Info) Description 08/21/2022 Travel Social History Tobacco Use Types Packs/Day [...] on filedocumented in this encounter Care Teams Manager Employee Relations Relationship Specialty Start Date End Date Peter Lebron PA [address] [place], [place] [id number] PCP - General Internal Medicine 08/21/22 documented as of this encounter
--- OUTSIDE RECORDS SUMMARY | 2024-02-29 15:48 | XMS_ITS | Encounter Summary ---
Author Organization [facility] [place] [address] Care Team Providers Care Special Education Teacher Name Role Phone JoséIrma vicente LIZA Primary Care Provider [phone] Encounter Details Date Type Department Care Team (Late st Contact Info) Description 06/09/2022 Orders [place] [address] Cl Atkins PA [facility] [place] [address] Chronic intractable headache, unspecified headache type Social [...] as of this encounter Results * XR Shunt Series [...] who have questions please contact the health critical care registered nurse that requested your imaging first. ? 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 Rhoda Jimenez MD IMG DX ORDERABLES documented in this encounter Visit Diagnoses Diagnosis Chronic intractable headache, unspecified headache type Chronic intractable headache, unspecified headache type documented in this encounter Care Teams Special Education Teacher Relationship Specialty Start Date End Date Irma Gates APRN [facility] [place] [address] PCP - General Family Medicine 09/20/20 08/20/22 documented as of this encounter
--- OUTSIDE RECORDS SUMMARY | 2024-02-29 15:48 | XMS_ITS | Encounter Summary ---
Author Organization [facility] [place] [address] Care Team Providers Care Tug Captain Name Role Phone YajairaIrma LIZA Primary Care Provider [phone] Encounter Details Date Type Department Care Team (Late st Contact Info) Description 05/26/2022 [place] [address] Richard Valles MD [facility] [place] [address] Social History Tobacco Use Types Packs/Day Years [...] encounter Miscellaneous Notes * Telephone Encounter - Dianelys Avelar - 05/26/2022 11:35 AM EDT Scheduled CTH and HCK w/ DPS Th 06/26 and advised guardian, Tracy Fregoso via [facility] * Telephone Encounter - Shanique Walsh - 05/26/2022 10:46 AM EDT Patient returning call to schedule [address] Jimenez is currently booking into late July/early August. Please return call to help schedule in the appropriate time frame. CT safety questions answered with patient. * Telephone Encounter - Bell Kuhn - 05/26/2022 9:50 AM EDT Images from the original note were not included. LMOM for pt to call back to do CT Screening questions and schedule PSC Scheduling Instructions Provider: Rhoda Jimenez MD Visit Type: HCK Appt Note: 1 mo HCK, s/p VPS Revision 05/24/22 CTH Prior Imaging appt needed?: CT Scan PSC to ask patient Screening Questions? Yes PSC to coordinate same day appt with Radiology? Yes Additional Info Needed: Schedule ~06/23/22 Richard Valels MD P [facility] Neurosurgery [place] Please schedule 1 month postop follow up with repeat head CT with Dr. Jimenez. ?? Attached Notes Discharge Summary by Richard Valles MD at 05/24/2022 10:03 PM documented in this encounter Plan of Treatment Not on file documented as of this encounter Visit Diagnoses Not on filedocumented in this encounter Care Teams Tug Captain Relationship Specialty Start Date End [place] [address] PCP - General Family Medicine 09/20/20 08/20/22 documented as of this encounter
--- OUTSIDE RECORDS SUMMARY | 2024-02-29 15:48 | XMS_ITS | Encounter Summary ---
Author Organization [facility] Address [facility] [place] [address] Care Team Providers Care Subway Car Repairer Name Role Phone Irma Gates APRN Primary Care Provider [phone] Reason for Visit * Reason Onset Date Comments Medication Refill 05/26/2022 Encounter Details Date Type Department Care Team (Late st Contact Info) Description 05/26/2022 [place] [address] Cl Atkins PA [facility] [place] [address] Social History Tobacco Use Types Packs/Day Years [...] on filedocumented in this encounter Care Teams Subway Car Repairer Relationship Specialty Start Date End Date Irma Gates APRN [address] [place], [place] [id number] PCP - General Family Medicine 09/20/20 08/20/22 documented as of this encounter
--- OUTSIDE RECORDS SUMMARY | 2024-02-29 15:48 | XMS_ITS | Encounter Summary ---
[place] [address] Care Team Providers Care Fine Chemicals Operator Name Role Phone Yajaira Irma LIZA Primary Care Provider [phone] Reason for Referral * Diagnostic Test (STAT) - Closed Specialty Diagnoses / Procedures Referred By Contac t Referred To Contact Radiology Diagnoses S/P CONTROL AREA OPERATOR shunt Procedures CT Head wo Contrast (Generic) Sonia Escalona APRN [facility] [place] [place] [address] [facility] [place] [address] Referral ID Status Reason Start Date Expiration Date V isits Requested Visits Authorized [id number] Closed Specialty Service Requested 08/19/2022 02/19/2024 1 1 Reason for Visit * Auth/Cert (Routine) Specialty Diagnoses / Procedures Referred By Contac t Referred To Contact Diagnoses Headache Shunt infection Rhoda Jimenez MD [facility] [place] [place] [address] [facility] Referral ID Status Reason Start Date Expiration Date Visits Re quested Visits Authorized [id number] 1 1 Encounter Details Date Type Department Care Team (Latest Contact Info) Description 08/19/2022 12:51 PM EDT - 08/19/2022 1:40 PM EDT Hospital Encounter CT Scan [place] [facility] [place] [address] Sonia Escalona APRN [facility] [place] [address] S/P CONTROL AREA OPERATOR shunt Discharge Disposition: Home Social History [...] Diagnosis Comments CT HEAD WO CONTRAST (GENERIC) STAT 08/19/2022 1:00 PM EDT S/P CONTROL AREA OPERATOR shunt documented in this encounter Results * CT Head wo Contrast (Generic) (08/19/2022 [...] who have questions please contact the health director of critical care that requested your imaging first. ? Electronically signed by: Carley Delgado MD, [facility] ([phone]), at 08/19/2022 1:19 PM Narrative 08/19/2022 1:19 PM EDT EXAMINATION: CT [...] patients who have questions please contactthe health director of critical care that requested your imaging first. Electronically signed by: Carley Delgado MD, [facility]([phone]), at 08/19/2022 1:19 PM Sonia Escalona APRN [facility] CT ORDERABLES documented in this encounter Visit Diagnoses Diagnosis S/P CONTROL AREA OPERATOR shunt Presence of cerebrospinal fluid drainage device documented in this encounter Care Teams Fine Chemicals Operator Relationship Specialty Start Date End Date Irma Gates APRN [facility] [place] [address] PCP - General Family Medicine 09/20/20 08/20/22 documented as of this encounter
--- OUTSIDE RECORDS SUMMARY | 2024-02-29 15:48 | XMS_ITS | Encounter Summary ---
Author Organization [facility] Address [facility] [place] [address] Care Team Providers Care Functional Mental Disability Teacher Name Role Phone Peter Lebron Primary Care Provider [phone] Encounter Details Date Type Department Care Team (Late st Contact Info) Description 08/21/2022 3:00 PM EDT Office Visit Neurosurgery at [facility] [place] [address] Rhoda Jimenez MD [facility] [place] [address] Hydrocephalus, unspecified type Social History Tobacco Use Types Packs/Day Years Used Date Smoking Tobacco: Never Smokeless Tobacco: Never Alcohol Use Standard Drinks/Week Comments No 0 (1 standard drink = 0.6 oz pur e alcohol) [facility] Inpatient Questions Answer Date Recorded Does Anyone [...] Sign Reading Time Taken Comments Blood Pressure 131/81 08/21/2022 3:23 PM EDT Pulse 70 08/21/2022 3:23 PM EDT Temperature 36.9 ??C (98.4 ??F) 08/21/2022 3:23 PM ED T Respiratory Rate 18 08/21/2022 3:23 PM EDT Oxygen Saturation 96% 08/21/2022 3:23 PM EDT Inhaled Oxygen Concentration - - Weight 94.1 kg (207 lb 6.4 oz) 08/21/2022 3:23 P M EDT Height 167.6 cm (5' 6) 08/21/2022 3:23 PM EDT Body Mass Index 33.48 08/21/2022 3:23 PM EDT documented in this encounter Progress Notes * Rhoda Jimenez MD - 08/21/2022 3:00 PM EDT It was a pleasure to see Chapin Costa in follow-up today. Mr. Costa is a 51-year-old gentleman with shunted hydrocephalus since childhood. He is status post a right occipital ventriculoperitoneal shunt revision with az in May. At that time he presentedwith lethargy and headache, was found to have a shunt malfunction with the valve was longer patent.We replace his valve with a new Codman Hakim valve set to 80. He is now returning to clinic after developing persistent severe headache refractory to medical management. We evaluated his shunt recently, and there were no concerns for central function given decreased ventricular caliber, and continuity of the shunt itself on x-ray. However, he does have a elevated white count and increased ESR andCRP. We will therefore tap the shunt today to evaluate him for possible shunt infection. We will also admit him for observation and headache management. Please see the accompanying H&P by Dr. Carolina Valles for further details. documented in this encounter Plan of Treatment Not on file documented as of this encounter Visit Diagnoses Diagnosis Hydrocephalus, unspecified type documented in this encounter Care Teams Functional Mental Disability Teacher Relationship Specialty Start Date End Date Peter Lebron PA [facility] [address] [place] [address] PCP - General Internal Medicine 08/21/22 documented as of this encounter
--- OUTSIDE RECORDS SUMMARY | 2024-02-29 15:48 | XMS_ITS | Encounter Summary ---
[facility] [place] [address] Care Team Providers Care Parts Designer Name Role Phone Peter Lebron Primary Care Provider [phone] Encounter Details Date Type Department Care Team (Late st Contact Info) Description 08/21/2022 Telephone [place] [address] Mandy Lauren RN Social History Tobacco Use Types Packs/Day Years Used Date Smoking Tobacco: Never Smokeless Tobacco: Never Alcohol Use Standard Drinks/Week Comments No 0 (1 standard drink = 0.6 oz pur e alcohol) [facility] In[facility] Questions Answer Date Recorded Does [...] Telephone Encounter - Mandy Lauren RN - 08/21/2022 8:25 AM EDT Copied from CRM #[id number]. Topic: Specialty Dept CRMs - Triage >> Aug 20, 2022 4:49 PM Tess Baxter wrote: Triage Message Specialist: Sonia Escalona APRN Relationship (if other than patient-full name): patient Symptom: headache, tenderness around shunt area Has patient experienced symptom before yes If patient has experienced symptom before, when was the last time this occurred 08/18/22 Is patient currently having symptom yes When did symptom begin a few days ago Additional Comments: Patient states his headache from 08/18/22 is worsening. His shunt does not seems swollen but it is tender to touch. He is requesting call back to discuss Caller: Ever Reason for call: worsening headache and has taken ibuprofen without any relief. He has only taken this twice in the past few days. He also took his migraine medication that didn't provide any relief. No fevers but he feels very hot and it's hard for him to cool down. No increase in tenderness but tenderness is still present. He is unable to lay on the right side due to pain, not really unchanged. Having labs completed today after a doctors appt. Plan: Will discuss with Sonia and call patient back. documented in this encounter Plan of Treatment Not on file documented as of this encounter Visit Diagnoses Not on filedocumented in this encounter Care Teams Parts Designer Relationship Specialty Start Date End Date Peter Lebron PA [address] [place] [address] PCP - General Internal Medicine 08/21/22 documented as of this encounter
--- OUTSIDE RECORDS SUMMARY | 2024-02-29 15:48 | XMS_ITS | Encounter Summary ---
[place] [address] Care Team Providers Care Research Chemist Name Role Phone YajairaIrma LIZA Primary Care Provider [phone] Reason for Visit * Reason Onset Date Comments Triage 06/09/2022 Encounter Details Date Type Department Care Team (Late st Contact Info) Description 06/09/2022 [place] [address] Jose Rafael Kline, stone crusher operator Social History Tobacco Use Types Packs/Day Years [...] * Telephone Encounter - Aria Cohn - 06/09/2022 12:59 PM EDT Pt has been scheduled for CTH XR shunt and OV with Sonia Escalona 06/10/22. No appt card needed Closing encounter * Telephone Encounter - Ella Ramsey - 06/09/2022 11:54 AM EDT Chapin Mantilla RN phone call agent was able to transfer patient over to nurse. * Telephone Encounter - Jose Rafael Kline RN - 06/09/2022 11:33 AM EDT Attempted call x1. Left a voicemail to return call. * Telephone Encounter - Jose Rafael Kline RN - 06/09/2022 10:31 AM EDT Images from the original note were not included. Copied from [facility] #[id number]. Topic: Specialty Dept CRMs - Triage >> Jun 09, 2022 9:31 AM Rhoda Stoner wrote: Triage Message Specialist: Ness Vance APRN Relationship (if other than patient-full name): Chapin Costa Symptom: bottom of shunt area is red and tender. Has patient experienced symptom before? No If patient has experienced symptom before, when was the last time this occurred? Patient is reporting these symptoms as new. Is patient currently having symptom? Yes When did symptom begin? Patient states that his symptoms are recently presenting. Additional Comments: Patient called this morning and advised that he has noticed that the bottom ofhis shunt area is red and tender. Please call patient to discuss and advise proper next steps regarding this new symptom. Thank you. I talked to Chapin. He noticed redness at the base of his incision a couple days ago. It is tender to the touch. No swelling or drainage. He has had fevers for the past couple days. This morning was 99.3. Highest temp - 100.6. No body aches or chills, he is more tired than usual. BP this morning was 127/93, pulse was 106, this is his baseline. He is having headaches every day, they are constant. Taken rizatriptan, it hasn't helped. Ibuprofen didn't help either. Some nausea, no vomiting. Appetite decreased. States it feels the same as he did prior to his surgery on 05/24. He emailed these photos that were taken 06/08. documented in this encounter Plan of Treatment Not on file documented as of this encounter Visit Diagnoses Not on filedocumented in this encounter Care Teams Research Chemist Relationship Specialty Start Date End Date Irma Gates APRN [facility] [address] PCP - General Family Medicine 09/20/20 08/20/22 documented as of this encounter
--- OUTSIDE RECORDS SUMMARY | 2024-02-29 15:48 | XMS_ITS | Encounter Summary ---
Author Organization [facility] [place] [address] Care Team Providers Care Rotary Shear Worker Helper Name Role Phone YajairaIrma LIZA Primary Care Provider [phone] Reason for Referral * Diagnostic Test (Routine) - Closed Specialty Diagnoses / Procedures Referred By Contac t Referred To Contact Radiology Diagnoses S/P SIENE MAKER shunt Procedures CT Head wo Contrast (Generic) Laila Ricci MD [facility] [place] [address] [facility] [place] [address] Referral ID Status Reason Start Date Expiration Date V isits Requested Visits Authorized [id number] Closed Specialty Service Requested 05/25/2022 11/24/2023 1 1 Reason for Visit * Diagnostic Test (Routine) - Closed Specialty Diagnoses / Procedures Referred By Contac t Referred To Contact Radiology Diagnoses S/P SIENE MAKER shunt Procedures CT Head wo Contrast (Generic) Laila Ricci MD [facility] [place] [address] [facility] [place] [address] Referral ID Status Reason Start Date Expiration Date V isits Requested Visits Authorized [id number] Closed Specialty Service Requested 05/25/2022 11/24/2023 1 1 Encounter Details Date Type Department Care Team (Latest Contact Info) Description 06/10/2022 12:01 PM EDT - 06/10/2022 1:14 PM EDT Hospital Encounter CT Scan at [facility] [place] [address] Rhoda Jimenez MD [facility] [place] [address] S/P SIENE MAKER shunt Discharge Disposition: Home Social History Tobacco [...] Comments CT HEAD WO CONTRAST (GENERIC) Routine 06/10/2022 12:15 PM EDT S/P SIENE MAKER shunt documented in this encounter Results * [...] who have questions please contact the health patient care technician instructor that requested your imaging first. ? Narrative [...] patients who have questions please contactthe health patient care technician instructor that requested your imaging first. Rhoda Jimenez MD IMG CT ORDERABLES documented in this encounter Visit Diagnoses Diagnosis S/P SIENE MAKER shunt Presence of cerebrospinal fluid drainage device documented in this encounter Care Teams Rotary Shear Worker Helper Relationship Specialty Start Date End Date Irma Gates APRN [facility] [place] [address] PCP - General Family Medicine 09/20/20 08/20/22 documented as of this encounter
--- OUTSIDE RECORDS SUMMARY | 2024-02-29 15:48 | XMS_ITS | Encounter Summary ---
Author Organization [facility] [place] [address] Care Team Providers Care Seal Delivery Vehicle Team Technician Name Role Phone Peter Lebron Primary Care Provider Encounter Details Date Type Department Care Team (Late st Contact Info) Description 08/21/2022 [place] [address] Sonia Escalona APRN [facility] [place] [address] Social History Tobacco Use Types Packs/Day Years Used Date Smoking Tobacco: Never Smokeless Tobacco: Never Alcohol Use Standard Drinks/Week Comments No 0 (1 standard drink = 0.6 oz pur e alcohol) [facility] Inpatient Questions Answer Date Recorded Does Anyone [...] encounter Miscellaneous Notes * Telephone Encounter - Sonia Escalona APRN - 08/21/2022 1:00 PM EDT I called Ever after he reported worsening headaches to Karen. Had labs drawn at [facility] this am. Headaches are slightly worse. Has been sweating a lot; Has been taking ibuprofen 600 mg every 6 hours No fever. Headaches, pretty much all the time; feels more pressure when lying down. Has taken his temp but not febrile. documented in this encounter Plan of Treatment Not on file documented as of this encounter Visit Diagnoses Not on filedocumented in this encounter Care Teams Seal Delivery Vehicle Team Technician Relationship Specialty Start Date End Date Peter Lebron PA [address] [place] [address] PCP - General Internal Medicine 08/21/22 documented as of this encounter
--- OUTSIDE RECORDS SUMMARY | 2024-02-29 15:48 | XMS_ITS | Encounter Summary ---
[place] [address] Care Team Providers Care Account Auditor Name Role Phone Irma Gates APRN Primary Care Provider [phone] Reason for Referral * Diagnostic Test (Routine) - Closed Specialty Diagnoses / Procedures Referred By Contac t Referred To Contact Radiology Diagnoses Hydrocephalus, unspecified type Procedures CT Head wo Contrast (Generic) Sonia Escalona APRN [facility] [place] [address] [facility] [place] [address] Referral ID Status Reason Start Date Expiration Date V isits Requested Visits Authorized [id number] Closed Specialty Service Requested 06/10/2022 12/11/2023 1 1 Encounter Details Date Type Department Care Team (Late st Contact Info) Description 06/10/2022 2:20 PM EDT [place] [address] Sonia Escalona APRN [facility] [place] [address] Hydrocephalus, unspecified type Social History Tobacco Use [...] Sign Reading Time Taken Comments Blood Pressure 131/75 06/10/2022 2:08 PM EDT Pulse 91 06/10/2022 2:08 PM EDT Temperature 36.4 ??C (97.5 ??F) 06/10/2022 2:08 PM ED T Respiratory Rate 18 06/10/2022 2:08 PM EDT Oxygen Saturation 94% 06/10/2022 2:08 PM EDT Inhaled Oxygen Concentration - - Weight 94.9 kg (209 lb 3.2 oz) 06/10/2022 2:08 P M EDT Height 167.6 cm (5' 6) 06/10/2022 2:08 PM EDT Body Mass Index 33.77 06/10/2022 2:08 PM EDT documented in this encounter Progress Notes * Sonia Escalona APRN - 06/10/2022 2:20 PM EDT Name: Chapin Costa : 1970 PCP: Irma Gates APRN REF: Irma Gates Date of Service: 06/10/2022 CHIEF COMPLAINT Post op check s/p 05/24 VPS revision (nonfunctioning valve s/p replacement with Hakim @ 80 same as preop setting; proximal and distal catheters patent) with Dr. Jimenez HISTORY OF PRESENT ILLNESS Chapin Costa is a 51 y.o. 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 Jimenez. Chapin reports headaches have improved since surgery. Now just feels tired. Denies neck pain. Balance has been fine. Urinating and having normal BM. Non smoker, no vision, hearing changes, no sensory changes. He reports having mildly elevated temp at 99 intermittently. No upper respiratory symptoms. He has noticed increasing redness and tenderness along the inferior aspect of R temporal incision in the past few days. Non smoker, no h/of known diabetes. PAST MEDICAL HISTORY Patient Active Problem List Diagnosis Code ??? S/P FISHER QUAHOG shunt Z98.2 ??? Persistent headaches R51.9 ??? Headache R51.9 ??? Cervicalgia M54.2 ??? Seizures R56.9 ??? Hydrocephalus G91.9 ??? Congenital hydrocephalus Q03.9 Past Medical History: Diagnosis Date ??? Depression [...] 4.06) performed by Shan Rivero MD at [facility] ??? PRO EXTRACTION ERUPTED TOOTH/EXR N/A 10/18/2020 EXTRACTION, ERUPTED TOOTH OR EXPOSED ROOT (WRVU 0.62) performed by Shan Rivero MD at [facility] ??? PRO IMPACT TOOTH REM BONY W/COMP N/A 10/18/2020 SURGICAL EXTRACTIONS, REMOVAL OF IMPACTED TOOTH, COMPLETELY BONY WITH UNUSUAL SURGICAL COMPLICATIONS (WRVU 2.91) performed by Shan Rivero MD at [facility] ??? PRO IMPACT TOOTH REMOV COMP BONY N/A 10/18/2020 SURGICAL EXTRACTIONS, REMOVAL OF IMPACTED TOOTH, COMPLETELY BONY (WRVU 1.93) performed by Shan Rivero MD at [facility] ??? PRO REMOVAL ERUPTED TOOTH WITH ELEVATION OF MUCOPERIOSTEAL FLAP Bilateral 10/18/2020 SURGICAL EXTRACTIONS REQUIRING ELEVATION OF MUCOPERIOSTEAL FLAP AND REMOVAL OF BONE OR SECTION OF TOOTH (VU 1.09) performed by Shan Rivero MD at [facility] ??? PRO UNLISTED PROCEDURE NERVOUS SYSTEM Right 05/24/2022 EXPLORATION VENTRICULO-PERITONEAL SHUNT (WRVU 25.48) performed by Rhoda Jimenez MD at [facility] ??? SHOULDER SURGERY ??? ULNAR TUNNEL RELEASE Right ??? VENTRICULOPERITONEAL SHUNT Multiple revisions - ~46 prior revisions ALLERGIES Allergies Allergen Reactions ??? Latex Other reaction(s): hives with latex powdered gloves Other reaction(s): hives with latex powdered gloves ??? Penicillins Other reaction(s): Anaphylaxsis, RASH ??? Vancomycin Other reaction(s): Skin Rash ??? Tegaderm [Transparent Dressings] Itching ??? Vancomycin Analogues ??? Vancomycin Hcl MEDICATIONS Current Outpatient Medications: ??? cholecalciferol, Vitamin D3, 50 mcg (2,000 unit) Capsule, Take by mouth daily., Disp: , Rfl: ??? omeprazole (PriLOSEC) [address] capsule, Take by mouth daily., Disp: , Rfl: ??? Vitamin B-12 5,000 mcg Tablet, Sublingual, Take by mouth daily., Disp: , Rfl: ??? ARIPiprazole (Abilify) 10 mg tablet, Take 10 mg by mouth daily., Disp: , Rfl: ??? oxyCODONE (Roxicodone) 5 mg tablet, Take 1 tablet by mouth every 6 hours as needed for Pain., Disp: 5 tablet, Rfl: 0 ??? polyethylene glycoL (Miralax) 17 gram oral powder packet, Take 17 g by mouth daily as needed., Disp: 14 each, Rfl: 0 ??? Aimovig Autoinjector 70 mg/mL Auto-Injector, Inject 70 mg as directed every 30 days. On the of every month, Disp: , Rfl: ??? benztropine (Cogentin) 0.5 mg Tablet, Take 1 tablet by mouth nightly., Disp: , Rfl: ??? acetaminophen (Tylenol) 500 mg Tablet, Take 500 mg by mouth every 6 hours as needed. T, Disp: ,Rfl: ??? Latuda 40 mg Tablet, Take 40 mg by mouth every evening., Disp: , Rfl: ??? rizatriptan (MAXALT) 10 mg Tablet, Take 1 tablet by mouth as needed for Migraine., Disp: 10 tablet, Rfl: 0 ??? metoprolol succinate XL (Toprol-XL) 25 mg Tablet Sustained Release 24 hr, Take 25 mg by mouth daily., Disp: , Rfl: ??? topiramate (TOPAMAX) 25 mg Tablet, Take 1 tablet by mouth 2 times daily. (Patient taking differently: Take 25 mg by mouth daily.), Disp: 60 tablet, Rfl: 5 ??? levothyroxine (SYNTHROID) 25 mcg Tablet, Take 25 mcg by mouth daily., Disp: , Rfl: ??? sertraline (ZOLOFT) 100 mg Tablet, Take 100 mg by mouth daily., Disp: , Rfl: 0 ??? testosterone cypionate (DEPOTESTOSTERONE CYPIONATE) 200 mg/mL Oil, Inject 250 mg into the muscle every 14 days., Disp: , Rfl: 0 SOCIAL HISTORY Social History Socioeconomic History ??? Marital status: [...] Age of Onset ??? Muscular Dystrophy Cousin REVIEW OF SYSTEMS General: Denies recent fever, chills, or weight changes. PER HPI Eyes: Denies recent changes in vision. ENT: Denies recent changes in hearing or dysphagia. Cardiovascular: Denies CP, palpitations, or irregular heart beat. Respiratory: Denies SOB, cough, or recent respiratory infections. GI: Denies N/V/D/C or change in appetite. : Denies changes in urination; frequency, urgency or burning. Musculoskeletal: Denies weakness, numbness, or tingling in extremities. Heme: Denies recent or history of bleeding or clotting disorder. Neuro: Denies recent changes in mentation, memory, or behavior. PHYSICAL EXAM BP 131/75 (BP Location (NBP): Right arm, Patient Position: Sitting, BP Cuff Sizes: Large Adult (32-43 cm)) Pulse 91 Temp 36.4 ??C (97.5 ??F) (Temporal) Resp 18 Ht 167.6 cm (5' 6) Wt 94.9 kg (209 lb 3.2 oz) SpO2 94% BMI 33.77 kg/m?? Constitutional: Well developed, well nourished, in NAD. Neuro: Mental Status/Cognitive: Awake, alert, answers questions appropriately. Cranial Nerves: CN II - Vision grossly intact, PERRLA Dysconjugate gaze (R exotropia, baseline) CN III, IV, - EOMI CN V - V1-3 dermatomes intact to light touch CN VII - No facial asymmetry CN VIII - Hearing intact to limited bedside exam CN IX, X - Uvula midline CN XI - Shoulder shrug 5/5 bilaterally CN XII - Tongue midline Motor: moving all extremities well Sensory: Sensation grossly intact to light touch in all four extremities. Gait: Normal gait. R cranial incision - well approximated; some erythema and mild swelling around incision along inferior aspect. No purulence or drainage. Head CT Right temporal parietal craniotomy is noted. Shunt catheter within the subcutaneous tissues on the right is unchanged. Catheter courses through the frontal bone and frontal lobe to the posterior midline into the left lateral ventricular frontal horn just anterior to the foramen of Gutiérrez. Stable ventricular caliber contour compared to recent head CT on 05/24/22 ASSESSMENT & PLAN Chapin Costa is a 51 y.o. 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 Reviewed head CT which shows stable post-op changes with no change in ventricular caliber or contour. Chapin reports improvement in headaches post-operatively. Denies upper respiratory symptoms, bowel or bladder changes. Will order Keflex for 10 days given slight erythema on inferior margin of incision. Plan: Sutures removed without incident. Will recheck WBC, Sed Rate, CRP today; WBC and Sed Rate still elevated but trending down from 05/24/22. CRP remains elevated at 10.9. Prescribed 10 days of Keflex 500 mg TID Follow up call, incision photo in 5-6 days. 3 months follow up with head CT. Sonia Escalona APRN ?? documented in this encounter Plan of Treatment Not on file documented as of this encounter Procedures Procedure Name Priority Date/Time Associated Diagnosis Comments CRP, ACUTE INFLAMMATION Routine 06/10/2022 3:09 PM EDT Hydrocephalus, unspecified type SEDIMENTATION RATE Routine 06/10/2022 3: 09 PM EDT Hydrocephalus, unspecified type WBC Routine 06/10/2022 3:09 PM EDT Hydrocephalus, unspecified type documented in [...] who have questions please contact the health foster care worker that requested your imaging first. ? Electronically signed by: HAIM Marquez [facility] ([phone]), at 09/09/2022 9:40 AM Narrative 09/09/2022 9:40 [...] patients who have questions please contactthe health foster care worker that requested your imaging first. Sonia Sullivan Iqra TELEPHONE SOLIC[employer]OR IMG CT ORDERABLES * (ABNORMAL) Sedimentation rate (06/10/2022 3:09 PM EDT) Sedimentation Rate Automated 29(H) 2 - 28 mm/hr [facility] Comment: Effective February 02, 2019 new capillary photometric technology has resulted in a change in reference ranges. It is recommended that each ESR result be reviewed with its own age appropriate reference range. Blood 06/10/2022 3:09 PM EDT 06/10/2022 3:21 PM EDT Narrative Resulting Agency Comment Spec In Lab Sonia Sullivan Iqra [facility] ORDERA BLES Performing Organization Address City/[facility]/ZIP Co de Phone Number [facility] [place] [address] * (ABNORMAL) CRP, acute inflammation (06/10/2022 3:09 PM EDT) C-Reactive Protein 10.9(H) <=4.9 mg/L [facility] Blood 06/10/2022 3:09 PM EDT 06/10/2022 3:21 PM EDT Narrative Resulting Agency Comment Spec In Lab Sonia Sullivan Iqra TELEPHONE SOLICITOR CHEMISTRY ORDERAB LES Performing Organization Address City/[facility]/ZIP Co de Phone Number [facility] [place] [address] * (ABNORMAL) WBC (06/10/2022 3:09 PM EDT) White Blood Cell 11.0(H) 4.0 - 9.5 x10(3)/mcL [facility] Blood 06/10/2022 3:09 PM EDT 06/10/2022 3:21 PM EDT Narrative Resulting Agency Comment Spec In Lab Sonia Escalona TELEPHONE SOLICITOR HEMATOLOGY ORDERA KIMBER [facility] [place] [address] documented in this encounter Visit Diagnoses Diagnosis Hydrocephalus, unspecified type Hydrocephalus, unspecified type documented in this encounter Care Teams Account Auditor Relationship Specialty Start Date End Date Irma Gates APRN [facility] [place] [address] PCP - General Family Medicine 09/20/20 08/20/22 documented as of this encounter
--- OUTSIDE RECORDS SUMMARY | 2024-02-29 15:48 | XMS_ITS | Encounter Summary ---
Author Organization [facility] [place] [address] Care Team Providers Care Pre Certification Specialist Name Role Phone Irma Gates APRN Primary Care Provider [phone] Encounter Details Date Type Department Care Team (Late st Contact Info) Description 05/26/2022 [place] [address] Mandy Lauren RN Social History Tobacco Use [...] Telephone Encounter - Mandy Lauren RN - 05/26/2022 9:13 AM EDT Copied from CRM #[id number]. Topic: Specialty Dept CRMs - Medication Issues >> May 26, 2022 8:58 AM Anisha Rico wrote: Medication Issues Specialist Rhoda Jimenez MD Relationship (if other than patient-full name): Mayuri- [facility] Reason for call: Medication Issue (if symptom based used Triage Subtopic) Message/information for the nurse: Mayuri calling in states that she is trying to process the prescription for the oxyCODONE (Roxicodone) [address] Rcihard Valles's SHEILA # is not working. Mayuri is wondering if another provider could prescribe this and send it she will cancel out the prescription that is not working if a new one could be sent. Please call Mayuri back with any questions. Name of Medication: oxyCODONE (Roxicodone) 5 mg tablet Issue with the medication: Providers SHEILA # is not working documented in this encounter Plan of Treatment Not on file documented as of this encounter Visit Diagnoses Not on filedocumented in this encounter Care Teams Pre Certification Specialist Relationship Specialty Start Date End Date Irma Gates APR[place] [address] PCP - General Family Medicine 09/20/20 08/20/22 documented as of this encounter
--- OUTSIDE RECORDS SUMMARY | 2024-02-29 15:48 | XMS_ITS | Encounter Summary ---
[facility] [place] [address] Care Team Providers Care Dietary Manager Name Role Phone Peter Lebron Primary Care Provider Reason for Visit * Auth/Cert (Routine) Specialty Diagnoses / Procedures Referred By Contac t Referred To Contact Diagnoses Headache Shunt infection Rhoda Jimenez MD [facility] [place] [address] [place] [address] [facility] Referral ID Status Reason Start Date Expiration Date Visits Re quested Visits Authorized [id number] 1 1 Encounter Details Date Type Department Care Team (Latest Contact Info) Description 08/21/2022 5:51 PM EDT - 08/25/2022 2:17 PM EDT Hospital Encounter Neurosciences and ENT Unit Level [address] [place] [address] Rhoda Jimenez MD [facility] [place] [address] [place] [address] Other hydrocephalus; Persistent headaches; Congenital hydrocephalus Discharge Disposition: Home Social History Tobacco Use Types Packs/Day Years Used Date Smoking Tobacco: Never Smokeless Tobacco: Never Alcohol Use Standard Drinks/Week Comments No 0 (1 standard drink = 0.6 oz pur e alcohol) [facility] Inpatient Questions Answer Date Recorded Does Anyone [...] Sign Reading Time Taken Comments Blood Pressure 123/76 08/25/2022 11:48 AM EDT Pulse - - Temperature 36.5 ??C (97.7 ??F) 08/25/2022 1 1:48 AM EDT Respiratory Rate 16 08/25/2022 11:4 8 AM EDT Oxygen Saturation 95% 08/25/2022 11: 48 AM EDT Inhaled Oxygen Concentration - - Weight 88.4 kg (194 lb 14.4 oz) 08/21/2022 6:03 PM EDT Height 167.6 cm (5' 6) 08/21/2022 6:03 PM EDT Body Mass Index 31.46 08/21/2022 6:03 PM EDT documented in this encounter Discharge Summaries * Socorro Maier APRN - 08/25/2022 8:58 AM EDT Patient Name: Chapin Costa Patient Age: 51 y.o. Admit date: 08/21/2022 Discharge Date and Time: 08/25/22 12:21 PM Attending Physician: Rhoda Jimenez MD Discharging Provider: Socorro Maier APRN Discharging Service: NEUROSURGERY Operations/Major Procedures: N/a Active Hospital Problems: Active Hospital Problems Diagnosis Headache Resolved Hospital Problems No resolved problems to display. Active Non Hospital Problems: Active Non-Hospital Problems Diagnosis Congenital hydrocephalus Hydrocephalus Seizures Cervicalgia Persistent headaches S/P [employer] shunt History of Presentation: Per review of relevant records-Per H&P on 08/21; Chapin Costa is a 51 y.o. 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 Earlier in his postop course he was prescribed Keflex for 10 days for some slight erythema at the inferior margin of the incision at his 2-week postop appointment. He denies any fevers, changes in vision, hearing, balance, or new bowel/bladder symptoms. Hospital Course: Chapin Costa presented 08/21/2022 with headaches, incision site tenderness, fatigue, chills and sweats with concern and workup for possible shunt infection. Initial workup included a CTH which revealed mild entrapment of shunt with dilation of anterior Right temporal horn. A shunt tap was performed and CSF has been unremarkable and no growth to date. Neurology was consulted in regards to headaches for further workup and patients headache had completely resolved spontaneously and no further workup or treatment recommended at this time. Unable to determine the cause of the headaches, but resolved spontaneously. A CXR, UA and KUB were completed and all within normal limits. Patient had persistent leukocytosis 18.1 to 18.5 and today 08/25 14.1. He will follow up with PCP andNeurosurgery clinic and monitor labs. Patient was deemed appropriate for home. Patient was discharged in stable condition 08/25/22 At time of discharge patient is afebrile, tolerating a regular diet, ambulating with standby assistance, voiding spontaneously, and managing pain. Important Studies and Lab Data: Labs: Recent Results (from the past 24 hour(s)) Basic Metabolic Panel (non-fasting) Result Value Ref Range Glucose Lvl 107 65 - 199 mg/dL BUN 23 (H) 10 - 20 mg/dL Creatinine 1.21 0.80 - 1.50 mg/dL Sodium 138 135 - 145 mmol/L Potassium 4.0 3.5 - 5.0 mmol/L Chloride 104 98 - 107 mmol/L CO2 21 (L) 22 - 31 mmol/L Anion Gap 13 5 - 15 mmol/L Calcium 9.2 8.5 - 10.5 mg/dL Estimated GFR 73 >=60 mL/min/1.73 m?? Hemogram Result Value Ref Range WBC 14.8 (H) 4.0 - 9.5 x10(3)/mcL RBC 6.10 (H) 4.58 - 5.54 x10(6)/mcL Hemoglobin 17.8 (H) 13.7 - 16.5 g/dL Hematocrit 52.9 (H) 40.5 - 48.5 % MCV 86.7 82.9 - 93.1 fL MCH 29.2 27.5 - 32.1 pg MCHC 33.6 32.0 - 35.7 g/dL Platelets 241 145 - 357 x10(3)/mcL RDWSD 41.1 36.0 - 45.0 fL RDWCV 13.0 11.4 - 13.8 % MPV 9.0 7.6 - 12.9 fL nRBC % Auto 0.0 % nRBC Abs Auto 0.000 0.000 - 0.000 x10(3)/mcL Differential, Automated Result Value Ref Range Neutrophils % 67.9 % Neutr Abs (ANC) 10.09 (H) 1.70 - 6.10 x10(3)/mcL Lymphocytes % 24.3 % Lymphocytes Abs 3.6 (H) 0.9 - 3.2 x10(3)/mcL Monocytes % 5.7 % Monocyte Abs 0.8 0.3 - 0.9 x10(3)/mcL Eosinophils % 1.2 % Eosinophils Abs 0.2 0.0 - 0.4 x10(3)/mcL Basophils % 0.5 % Basophils Abs 0.1 0.0 - 0.1 x10(3)/mcL Immature Gran % 0.40 % Ute Gran Abs 0.06 (H) 0.00 - 0.04 x10(3)/mcL Studies: Results for orders placed or performed during the hospital encounter of 08/21/22 XR Abdomen 1 view (Generic) (Exam End: 08/24/2022 1:32 PM) Impression No acute abnormality identified on supine views of the abdomen. Paucity of small bowel gas is a nonspecific finding. Thank you for letting us participate in the care of this patient. If you are a health care provider and have any questions regarding this report, please contact the number below. For patients who have questions please contact the health live in caregiver that requested your imaging first. Chest One View (Exam End: 08/24/2022 1:31 PM) Impression No acute pathology. Thank you for letting us participate in the care of this patient. If you are a health care provider and have any questions regarding this report, please contact the number below. For patients who have questions please contact the health live in caregiver that requested your imaging first. Pending Studies and Lab Data: Blood cultures Discharge Condition: Stable Discharge to: Home Future Appointments and Orders Future Appointments and Orders Future Appointments Provider Department Dept Phone 09/08/2022 12:[address] [facility] CT 1 CT Scan at [facility] Arrive at: 3Z RADIOLOGY [phone] 09/08/2022 1:40 PM Cl Atkins PA Neurosurgery at [facility] Arrive at: Attending Urologist Area 3C [phone] Future Orders Complete By Expires CBC (with Diff) [NLO611 Custom] 09/01/2022 (Approximate) 03/03/2023 Process Instructions: Scheduling Instructions: Comments: Questions: CT Head wo Contrast (Generic) [OLE175 Custom] 09/01/2022 (Approximate) 03/03/2023 Process Instructions: Scheduling Instructions: Questions: Clinical information / miramontes questions for radiologist: Where will study be performed?: [facility] Radiology Stat read required?: Does patient require [...] by mouth nightly. 1 tablet Refills: 0 cephALEXin 500 mg capsule Commonly known as: Keflex Take 1 capsule by mouth 3 times daily. 500 mg Quantity: 30 capsule Refills: 0 cholecalciferol (Vitamin D3) 50 mcg [...] Generic drug: cyanocobalamin (vitamin B-12) Refills: 0 UNREVIEWED medications - Discuss With Your Provider Dose Details topiramate 25 mg tablet Commonly known as: Topamax Take 1 tablet by mouth 2 times daily. 25 mg Quantity: 60 tablet Refills: 5 Updated Allergies/ADRs: Allergies Allergen Reactions Latex Other reaction(s): hives with latex powdered gloves Other reaction(s): hives with latex powdered gloves Penicillins Other reaction(s): Anaphylaxsis, RASH Vancomycin Other reaction(s): Skin Rash Tegaderm [Transparent Dressings] Itching Vancomycin Analogues Vancomycin Hcl Follow-up Recommendations for Providers: Please see Discharge Instructions Outpatient referrals: N/a Instructions Given to Patient at Discharge: Patient Instructions DISCHARGE INSTRUCTIONS PRESCRIPTION INSTRUCTIONS: Please see the medication reconciliation list on this discharge summary for a current list of your medications. WHEN TO SEEK MEDICAL CARE: Signs or symptoms of an infection - Fever over 101F - Redness, swelling, or increasing pain around your incision - Drainage of pus, blood, or clear fluid from your incision New neurologic symptoms - Worsening headaches not controlled with your pain medication - Drowsiness, confusion, and lethargy - Visual changes - Difficulty speaking or slurred speech - Facial droop - New weakness or sensory changes - New unsteadiness when walking - Seizures Constipation not relieved by diet and over the counter stool softeners and laxatives Nausea/vomiting (upset stomach) not controlled with anti-nausea medication WOUND CARE: - Keep incisional site clean and dry. You can remove your dressing 2 days after surgery. - You may shower and shampoo incisional site, per your usual routine, 4 days after surgery. - Do not pick/scratch/itch your incision. Pat dry. - Do not submerge your incision underwater (do not bath in a tub or go swimming in any pools, gunderson, lakes, oceans) for a minimal of 4 weeks after the operation. - Please consider taking supplemental Vitamin C (500mg) for up to 3 months, Zinc (220mg) for 2-6 weeks, and Vitamin A (10,000units) for up to 5 days as these supplements may decrease your risk of infection and promote healing of your surgical wound. - Keep your incision out of the sun for at least 6 months. The new skin is at high risk of having malignant (cancerous) changes and UV sunlight also makes scars more pronounced. DIET: - You may resume your usual diet. - A well-balanced diet is recommended for wound healing. - Prune juice or prunes can be added to your diet to assist with any constipation. ACTIVITY: - You may increase your activities as tolerated. - Restrict strenuous activity (such as running, jumping, jogging, shoveling, etc.) until cleared byyour surgical team. FOLLOW UP PLAN: Incision: N/a Appointments: [x] Please follow-up in the Neurosurgery Clinic in [x] 1-2 weeks with [facility]. Please call the Neurosurgery Office at [phone] if you do not receive a scheduled appointment within two weeks. Your follow-up appointment will be with: [] Dr. Davis [] Dr. Kincaid [] Dr. Mason [] Dr. Oviedo [] Dr. Colon [] Dr. Jimenez [x] Associate Provider Imaging: [] No Imaging required at follow-up. [x] Head CT [] MRI Brain [] XR Shunt series [] XR - Cervical Spine [] XR - Thoracic Spine [] XR - Lumbar Spine [] XR - Thoracolumbar Spine [] Other: We are also ordering a CBC (lab) to be completed to follow up on your WBC. HOW TO REACH NEUROSURGERY Office Hours (Thursday through Thursday 8am-5pm): Call On weekends or after office hours (after 5pm or before 8am): Call [phone] and ask the dry mill operator to page the Neurosurgery Resident/Advanced Practice Provider business transformation consultant. *Your surgeon may not be scallop dredger (especially after office hours or on the weekend) so be ready totell about yourself and your surgery when you call. Neurosurgery Providers Adult Neurosurgery Dr. Ge Oviedo Pediatric Neurosurgery Dr. Tracey Lee Advanced Practice Providers Sonia Escalona, Nurse Practitioner (outpatient) Thelma Hebert, Physician Sewage Plant Attendant (inpatient/outpatient: neuro-oncology) Claire Brody, Physician Sewage Plant Attendant (inpatient) Dennis Calix, Nurse Practitioner (outpatient: pediatric) Ness Vance, Nurse Practitioner (outpatient: vascular) Mary Jessica, Physician Sewage Plant Attendant (outpatient: spine) Chavez Hewitt, Nurse Practitioner (inpatient/outpatient) Cl Atkins, Physician Sewage Plant Attendant (outpatient) Outpatient Nurses Mandy Mantilla Raisa HOW TO REACH NEUROSURGERY Office Hours (Thursday through Thursday 8am-5pm): Call On weekends or after office hours (after 5pm or before 8am): Call [phone] and ask the dry mill operator to page the Neurosurgery Resident/Advanced Practice Provider business transformation consultant. *Your surgeon may not be scallop dredger (especially after office hours or on the weekend) so be ready totell about yourself and your surgery when you call. Neurosurgery Providers Adult Neurosurgery Dr. Ge Oviedo Pediatric Neurosurgery Dr. Tracey Lee Advanced Practice Providers Sonia Escalona, Nurse Practitioner (outpatient) Thelma Hebert, Physician Sewage Plant Attendant (inpatient/outpatient: neuro-onc) Claire Brody, Physician Sewage Plant Attendant (inpatient) Socorro Maier, Nurse Practitioner (inpatient) Dennis Calix, Nurse Practitioner (outpatient: pediatric) Ness Vance, Nurse Practitioner (outpatient: vascular) Mary Jessica, Physician Sewage Plant Attendant (outpatient: spine) Chavez Hewitt, Nurse Practitioner (inpatient/outpatient) Cl Atkins, Physician Sewage Plant Attendant (outpatient) Outpatient Nurses Mandy Maier APRN 08/25/2022 documented in this encounter Discharge Instructions * Patient Instructions* Socorro Maier APRN - 08/25/2022 8:54 AM EDT DISCHARGE INSTRUCTIONS PRESCRIPTION INSTRUCTIONS: Please see the medication reconciliation list on this discharge summary for a current list of your medications. WHEN TO SEEK MEDICAL CARE: Signs or symptoms of an infection - Fever over 101F - Redness, swelling, or increasing pain around your incision - Drainage of pus, blood, or clear fluid from your incision New neurologic symptoms - Worsening headaches not controlled with your pain medication - Drowsiness, confusion, and lethargy - Visual changes - Difficulty speaking or slurred speech - Facial droop - New weakness or sensory changes - New unsteadiness when walking - Seizures Constipation not relieved by diet and over the counter stool softeners and laxatives Nausea/vomiting (upset stomach) not controlled with anti-nausea medication WOUND CARE: - Keep incisional site clean and dry. You can remove your dressing 2 days after surgery. - You may shower and shampoo incisional site, per your usual routine, 4 days after surgery. - Do not pick/scratch/itch your incision. Pat dry. - Do not submerge your incision underwater (do not bath in a tub or go swimming in any pools, gunderson, lakes, oceans) for a minimal of 4 weeks after the operation. - Please consider taking supplemental Vitamin C (500mg) for up to 3 months, Zinc (220mg) for 2-6 weeks, and Vitamin A (10,000units) for up to 5 days as these supplements may decrease your risk of infection and promote healing of your surgical wound. - Keep your incision out of the sun for at least 6 months. The new skin is at high risk of having malignant (cancerous) changes and UV sunlight also makes scars more pronounced. DIET: - You may resume your usual diet. - A well-balanced diet is recommended for wound healing. - Prune juice or prunes can be added to your diet to assist with any constipation. ACTIVITY: - You may increase your activities as tolerated. - Restrict strenuous activity (such as running, jumping, jogging, shoveling, etc.) until cleared byyour surgical team. FOLLOW UP PLAN: Incision: N/a Appointments: [x] Please follow-up in the Neurosurgery Clinic in [x] 1-2 weeks with [facility]. Please call the Neurosurgery Office at [phone] if you do not receive a scheduled appointment within two weeks. Your follow-up appointment will be with: [] Dr. Davis [] Dr. Kincaid [] Dr. Mason [] Dr. Oviedo [] Dr. Colon [] Dr. Jimenez [x] Associate Provider Imaging: [] No Imaging required at follow-up. [x] Head CT [] MRI Brain [] XR Shunt series [] XR - Cervical Spine [] XR - Thoracic Spine [] XR - Lumbar Spine [] XR - Thoracolumbar Spine [] Other: We are also ordering a CBC (lab) to be completed to follow up on your WBC. HOW TO REACH NEUROSURGERY Office Hours (Thursday through Thursday 8am-5pm): Call On weekends or after office hours (after 5pm or before 8am): Call [phone] and ask the dry mill operator to page the Neurosurgery Resident/Advanced Practice Provider business transformation consultant. *Your surgeon may not be scallop dredger (especially after office hours or on the weekend) so be ready totell about yourself and your surgery when you call. Neurosurgery Providers Adult Neurosurgery Dr. Ge Oviedo Pediatric Neurosurgery Dr. Tracey Lee Advanced Practice Providers Sonia Escalona, Nurse Practitioner (outpatient) Thelma Hebert, Physician Sewage Plant Attendant (inpatient/outpatient: neuro-oncology) Claire Brody, Physician Sewage Plant Attendant (inpatient) Dennis Calix, Nurse Practitioner (outpatient: pediatric) Ness Vance, Nurse Practitioner (outpatient: vascular) Mary Jessica, Physician Sewage Plant Attendant (outpatient: spine) Chavez Hewitt, Nurse Practitioner (inpatient/outpatient) Cl Atkins, Physician Sewage Plant Attendant (outpatient) Outpatient Nurses Mandy Kline documented in this encounter Medications at Time [...] as of this encounter Progress Notes * Meghan Bartlett, RN - 08/25/2022 1:30 PM EDT Chapin A Costa discharged to Home by private car with Family member. All belongings sent with patient. ADAM removed, incision healing well, skin free from pressure ulcers. Discharge instructions,medications, and follow-up appointments reviewed, education provided on 08/25/22, paper prescriptionsgiven to patient, all questions answered. . Patient instructed to call with concerns. * Laila Ricci MD - 08/25/2022 5:09 AM EDT NEUROSURGERY PROGRESS NOTE PLEASE PAGE [phone] WITH QUESTIONS ID: Chapin Costa is a 51 y.o. 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 s/p [employer] shunt placement at the age of 2 months currently with a Codman Hakim shunt set to 80 mm of H2O who presented to clinic multiple times since most recent shunt revision on 05/24 for headaches, incision site tenderness,fatigue, and chills/sweats HD# 4 INTERVAL HX/ROS: -SANIA -Headache resolved, feeling completely at his baseline -CSF from 08/21 remains NGTD -Persistent leukocytosis 18.1 from 18.5 yesterday, today's labs still pending, with full infectiousworkup benign thus far (CXR, KUB, blood culture, UA, CSF) EXAM: GEN:NAD sitting up in bed awake and pleasant NEURO:AA+Ox3 Speech fluent and appropriate. Naming and repetition intact. PERRL. Disconjugate gaze (baseline) with R exotropia. Visual tony full. No facial asymmetry Tongue midline MOTOR: RUE:5/5 LUE:5/5 RLE: 5/5 LLE: 5/5 No pronator drift LT sensation intact x 4 R cranial and cervical incisions well healed with no evidence of edema, erythema, or drainage LABS: Recent Labs 08/24/22 0603 08/23/22 0644 08/22/22 0844 WBC 18.5* 19.5* 21.8* HGB 18.0* 17.6* 17.4* PLATELET 241 288 300 Recent Labs 08/24/22 0603 08/23/22 0644 08/22/22 0844 NA 137 137 136 K 4.1 4.1 4.0 CL 103 104 101 CO2 21* 21* 20* BUN 22* 21* 20 CREATININE 1.33 1.30 1.21 IMAGING: Results for orders placed or performed during the hospital encounter of 08/21/22 XR Abdomen 1 view (Generic) (Exam End: 08/24/2022 1:32 PM) Impression No acute abnormality identified on supine views of the abdomen. Paucity of small bowel gas is a nonspecific finding. Thank you for letting us participate in the care of this patient. If you are a health care provider and have any questions regarding this report, please contact the number below. For patients who have questions please contact the health live in caregiver that requested your imaging first. Chest One View (Exam End: 08/24/2022 1:31 PM) Impression No acute pathology. Thank you for letting us participate in the care of this patient. If you are a health care provider and have any questions regarding this report, please contact the number below. For patients who have questions please contact the health live in caregiver that requested your imaging first. Electronically signed by: Marianne Burleson [facility] ([phone]), at 08/24/2022 2:53 PM A/P: Chapin Costa is a 51 y.o. 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 No radiographic evidence of shunt malfunction. Has persistent leukocytosis that is improving as well as ESR and CRP, full infectious workup thus far benign. Neurology consulted to assist with guidance of ALICEA management, symptoms resolved as of this time. Given the overall improvement will discuss discharge home with close clinic follow up. -Neuro checks: q4h -Continue to monitor labs -Diet: Regular diet. -DVT prophylaxis: SCDs -activity as tolerated. -Continue home meds -Follow CSF and blood cx -FULL CODE Please page [phone] with questions/concerns for in-house NSGY patients MEDICATIONS: Scheduled Meds: ARIPiprazole 10 mg Oral Daily atorvastatin 10 mg Oral Daily benztropine 0.5 mg Oral Nightly hydrOXYzine 25 mg Oral Daily lurasidone 40 mg Oral QPM levothyroxine 25 mcg Oral Daily metoprolol succinate XL 25 mg Oral Daily pantoprazole EC 40 mg Oral Daily sertraline 100 mg Oral Daily topiramate 25 mg Oral Daily sodium chloride 0.9 % (flush) 5 mL Intravenous BID senna-docusate 2 tablet Oral BID docusate sodium 100 mg Oral BID Continuous Infusions: PRN Meds: hydrOXYzine, sodium chloride 0.9 % (flush), lidocaine, bisacodyL, polyethylene glycoL, ondansetron OR ondansetron, labetaloL, hydrALAZINE, acetaminophen OR acetaminophen OR acetaminophen LABS: Recent Labs 08/24/22 1208 08/24/22 0603 08/23/22 0644 WBC 18.1* 18.5* 19.5* HGB 18.2* 18.0* 17.6* PLATELET 276 241 288 Recent Labs 08/24/22 0603 08/23/22 0644 08/22/22 0844 NA 137 137 136 K 4.1 4.1 4.0 CL 103 104 101 CO2 21* 21* 20* BUN 22* 21* 20 CREATININE 1.33 1.30 1.21 No results for input(s): PT, INR in the last 72 hours. Active Hospital Problems Diagnosis Headache Resolved Hospital Problems No resolved problems to display. Active Non-Hospital Problems Diagnosis Congenital hydrocephalus Hydrocephalus Seizures Cervicalgia Persistent headaches S/P SU[employer] shunt Laila Ricci MD 08/25/2022 * Deng Dupree MD - 08/24/2022 8:34 AM EDT NEUROSURGERY PROGRESS NOTE PLEASE PAGE [phone] WITH QUESTIONS ID: Chapin Costa is a 51 y.o. 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 Patient has no complaints this morning. Patient is neurologically stable. Patient tolerating PO Ambulating ROS: Patient denies fever, chills, headache, nausea, vomiting, and bowel or bladder symptoms. EXAM: GEN:NAD NEURO:AA+Ox3 Speech fluent and appropriate. Naming and repetition intact. PERRL. Disconjugate gaze (baseline). Visual tony full to confrontation. No facial asymmetry Tongue midline MOTOR: RUE:5/5 LUE:5/5 RLE: 5/5 LLE: 5/5 No pronator drift LT sensation intact x 4 Vitals: Temp: [36.3 ??C (97.3 ??F)-36.9 ??C (98.4 ??F)] Heart Rate: -- Resp: [13-17] BP: (115-125)/(70-79) SpO2: [93 %-95 %] Heart Rate from SpO2: [61 bpm-76 bpm] BMI: Weight: 88.4 kg (194 lb 14.4 oz) (08/21/22 1803) BMI (Calculated): 31.45 BMI Classification: Obese I/O: I/O last 3 completed shifts: In: 2436 [P.O.:2436] Out: - LABS: Recent Labs 08/24/22 0603 08/23/22 0644 08/22/22 0844 WBC 18.5* 19.5* 21.8* HGB 18.0* 17.6* 17.4* PLATELET 241 288 300 Recent Labs 08/24/22 0603 08/23/22 0644 08/22/22 0844 NA 137 137 136 K 4.1 4.1 4.0 CL 103 104 101 CO2 21* 21* 20* BUN 22* 21* 20 CREATININE 1.33 1.30 1.21 IMAGING: No results found for this visit on 08/21/22. A/P: Chapin Costa is a 51 y.o. 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 Incision looks slightly erythematous, with some nonspecific punctate areas of scab/dirt. Head CT obtained 2 days ago demonstrates no ventriculomegaly. Aspect of catheter that has been viewed on chest x-ray demonstrates no clear discontinuities. ESR uptrending from 34 2 days ago to 46 now down to 36. CRP elevated to 8.2now down to 3.6. WBC 13>21.8>19.5> all of which have shown improvement over the last 24 hours. Neurology consulted to assist with guidance, recommend consider increase shunt pressures to decrease drainage. Given the overall improvement from both the patient and clinical perspective likely discharge to home today. -Neuro checks: Frequency; Q HR: Q 4 HR - Continue to monitor WBC and ESR -Diet: Regular diet. -DVT prophylaxis: SCDs -activity as tolerated. -Continue home meds -FULL CODE/DNR Please page [phone] with questions/concerns for in-house NSGY patients MEDICATIONS: Scheduled Meds: ARIPiprazole 10 mg Oral Daily atorvastatin 10 mg Oral Daily benztropine 0.5 mg Oral Nightly hydrOXYzine 25 mg Oral Daily lurasidone 40 mg Oral QPM levothyroxine 25 mcg Oral Daily metoprolol succinate XL 25 mg Oral Daily pantoprazole EC 40 mg Oral Daily sertraline 100 mg Oral Daily topiramate 25 mg Oral Daily sodium chloride 0.9 % (flush) 5 mL Intravenous BID senna-docusate 2 tablet Oral BID docusate sodium 100 mg Oral BID Continuous Infusions: PRN Meds: hydrOXYzine, sodium chloride 0.9 % (flush), lidocaine, bisacodyL, polyethylene glycoL, ondansetron OR ondansetron, labetaloL, hydrALAZINE, acetaminophen OR acetaminophen OR acetaminophen LABS: Recent Labs 08/24/22 0603 08/23/22 0644 08/22/22 0844 WBC 18.5* 19.5* 21.8* HGB 18.0* 17.6* 17.4* PLATELET 241 288 300 Recent Labs 08/24/22 0603 08/23/22 0644 08/22/22 0844 NA 137 137 136 K 4.1 4.1 4.0 CL 103 104 101 CO2 21* 21* 20* BUN 22* 21* 20 CREATININE 1.33 1.30 1.21 No results for input(s): PT, INR in the last 72 hours. Active Hospital Problems Diagnosis Headache Resolved Hospital Problems No resolved problems to display. Active Non-Hospital Problems Diagnosis Congenital hydrocephalus Hydrocephalus Seizures Cervicalgia Persistent headaches S/P [employer] shunt Deng Dupree MD 08/24/2022 * Raman Hines RN - 08/24/2022 5:42 AM EDT OUTCOME EVALUATION NOTE: OUTCOME SUMMARY: Patient is alert and oriented x4. AVSS on RA. Neuro status is intact. Ambulates to the bathroom with standby assist. Adequate urine output, no BM overnight. No major events overnight. PLAN MOVING FORWARD: Q4-NC/VS Maintain safety INDIVIDUALIZED FALL PREVENTION INTERVENTIONS: Patient-specific fall risk factors per assessment: Recent stroke, hospital environment, general weakness Assistance: SBA, 1 assist Supervision: Independent, Eyes on, Hands on Surveillance: Bed locked in low position, call shell within reach, purposeful hourly rounding, clutter free environment, bed/chair alarm on, family at bedside Patient-specific fall prevention interventions for sensory deficits provided: Yes CPG GOAL OUTCOME EVALUATION: Continue care plan as documented. * Deng Dupree MD - 08/23/2022 5:07 PM EDT NEUROSURGERY PROGRESS NOTE PLEASE PAGE [phone] WITH QUESTIONS ID: Chapin Costa is a 51 y.o. 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 s/p [employer] shunt placement at the age of 2 months currently with a Codman Hakim shunt set to 80 mm of H2O who presented to clinic multiple times since most recent shunt revision on 05/24 for headaches, incision site tenderness,fatigue, and chills/sweats HD# 2 INTERVAL HX/ROS: -Shunt tap unrevealing -Shunt set to 80 mm of H2O No acute events reported overnight. Patient has no complaints this morning. Patient is neurologically stable. Patient tolerating PO Ambulating ROS: Patient denies fever, chills, headache, incision site tenderness, nausea, vomiting, and bowel or bladder symptoms. EXAM: GEN:NAD NEURO:AA+Ox3 Speech fluent and appropriate. PERRL. Disconjugate gaze (baseline). Visual tony full to confrontation. No facial asymmetry Tongue midline MOTOR: RUE:5/5 LUE:5/5 RLE: 5/5 LLE: 5/5 No pronator drift Sensation grossly intact to light touch x4 Incision site behind right ear remains clean dry and intact with no acute changes or signs of infection Vitals: Temp: [36.3 ??C (97.3 ??F)-36.6 ??C (97.9 ??F)] Heart Rate: -- Resp: [13-17] BP: (117-132)/(71-76) SpO2: [92 %-95 %] Heart Rate from SpO2: [60 bpm-79 bpm] BMI: Weight: 88.4 kg (194 lb 14.4 oz) (08/21/22 1803) BMI (Calculated): 31.45 BMI Classification: Obese I/O: I/O last 3 completed shifts: In: 2210 [P.O.:2200; I.V.:10] Out: - LABS: Recent Labs 08/23/22 0644 08/22/22 0844 WBC 19.5* 21.8* HGB 17.6* 17.4* PLATELET 288 300 Recent Labs 08/23/22 0644 08/22/22 0844 NA 137 136 K 4.1 4.0 CL 104 101 CO2 21* 20* BUN 21* 20 CREATININE 1.30 1.21 A/P: Chapin Costa is a 51 y.o. 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 Incision looks slightly erythematous, with some nonspecific punctate areas of scab/dirt. Head CT obtained 2 days ago demonstrates no ventriculomegaly. Aspect of catheter that has been viewed on chest x-ray demonstrates no clear discontinuities. ESR uptrending from 34 2 days ago to 46>36. CRP elevated to 8.2>3.6. WBC 13>21.8>19.5 all of which have shown improvement over the last 24 hours. Neurology consulted to assist with guidance, recommend consider increase shunt pressures to decrease drainage. -Neuro checks: Frequency; Q HR: Q 4 HR -Continue to trend WBC, ESR, and CRP -Diet: Regular diet. -DVT prophylaxis: SCDs -activity as tolerated. -Continue home meds -FULL CODE/DNR Please page [phone] with questions/concerns for in-house NSGY patients MEDICATIONS: Scheduled Meds: ARIPiprazole 10 mg Oral Daily atorvastatin 10 mg Oral Daily benztropine 0.5 mg Oral Nightly hydrOXYzine 25 mg Oral Daily lurasidone 40 mg Oral QPM levothyroxine 25 mcg Oral Daily metoprolol succinate XL 25 mg Oral Daily pantoprazole EC 40 mg Oral Daily sertraline 100 mg Oral Daily topiramate 25 mg Oral Daily sodium chloride 0.9 % (flush) 5 mL Intravenous BID senna-docusate 2 tablet Oral BID docusate sodium 100 mg Oral BID Continuous Infusions: PRN Meds: hydrOXYzine, sodium chloride 0.9 % (flush), lidocaine, bisacodyL, polyethylene glycoL, ondansetron OR ondansetron, labetaloL, hydrALAZINE, acetaminophen OR acetaminophen OR acetaminophen Active Hospital Problems Diagnosis Headache Resolved Hospital Problems No resolved problems to display. Active Non-Hospital Problems Diagnosis Congenital hydrocephalus Hydrocephalus Seizures Cervicalgia Persistent headaches S/P [employer] shunt Deng Dupree MD 08/23/2022 * Raman Hines RN - 08/22/2022 6:34 AM EDT OUTCOME EVALUATION NOTE: OUTCOME SUMMARY: Patient is alert and oriented x4. AVSS on RA. Neuro status is intact. Ambulates to the bathroom with standby assist. Adequate urine output, no BM overnight. CSF sample sent to lab. Complaints of slight headache. No major events overnight. PLAN MOVING FORWARD: Q4-NC/VS Maintain safety INDIVIDUALIZED FALL PREVENTION INTERVENTIONS: Patient-specific fall risk factors per assessment: Recent stroke, hospital environment, general weakness Assistance: SBA, 1 assist Supervision: Independent, Eyes on, Hands on Surveillance: Bed locked in low position, call shell within reach, purposeful hourly rounding, clutter free environment, bed/chair alarm on, family at bedside Patient-specific fall prevention interventions for sensory deficits provided: Yes CPG GOAL OUTCOME EVALUATION: Continue care plan as documented. * Jason Cohen RN - 08/21/2022 6:10 PM EDT Chapin Costa arrived to 503B @ 1800 from clinic. Oriented to room, call shell within reach, educated on importance of using prior to getting OOB, AVSS, incision , belongings updated in eDH, bedlocked in low position, purposeful hourly rounding, bed/chair alarm on. documented in this encounter H&P Notes * Richadr Valles MD - 08/21/2022 7:29 PM EDT [facility] NEUROSURGERY H&P ID: Chapin Costa, 51 y.o. male. : 1970 HISTORY OF PRESENT ILLNESS: Chapin Costa is a 51 y.o. 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 Earlier in his postop course he was prescribed Keflex for 10 days for some slight erythema at the inferior marginof the incision at his 2-week postop appointment. He denies any fevers, changes in vision, hearing,balance, or new bowel/bladder symptoms. PAST MEDICAL HISTORY: Past Medical History: [...] MD at [facility] PRO EXTRACTION ERUPTED TOOTH/EXR N/A 10/18/2020 [...] MD at [facility] OSC PRO UNLISTED PROCEDURE NERVOUS SYSTEM Right [...] file Housing Stability: Not on file FAMILY HISTORY: Family History Problem Relation Age of Onset Muscular Dystrophy Cousin REVIEW OF SYSTEMS: As above in HPI, otherwise non-contributory. VITAL SIGNS: Visit Vitals BP 119/82 (BP Location (NBP): Left arm, Patient Position: Lying) Temp 36.6 ??C (97.9 ??F) (Oral) Resp 16 Ht 167.6 cm (5' 6) Wt 88.4 kg (194 lb 14.4 oz) SpO2 94% BMI 31.46 kg/m?? PHYSICAL EXAM: General: NAD HEENT: Normocephalic. Surgical wounds incision posterior to right ear with some overlying erythema,and multiple punctate areas that appear to have a small amount of fibrinous output. No active draining. Incision is tender. Neuro Exam: Wide awake, alert, oriented x4 Conversational, speech fluent, naming & repetition intact PERRL, disconjugate gaze (baseline), FS, TML No pronator drift MOTOR: RUE:5/5 LUE:5/5 RLE: 5/5 LLE: 5/5 Sensation grossly intact to light touch x4 LABS: CBC: Lab Results Component Value Date/Time WBC 13.0 (H) 08/19/2022 01:34 PM HGB 16.0 05/25/2022 12:38 AM PLATELET 275 05/25/2022 12:38 AM BMP: Lab Results Component Value Date/Time NA 135 05/25/2022 12:38 AM K 4.3 05/25/2022 12:38 AM CL 101 05/25/2022 12:38 AM CO2 21 (L) 05/25/2022 12:38 AM BUN 16 05/25/2022 12:38 AM CREATININE 1.07 05/25/2022 12:38 AM Coags: No results found for: INR, PT, PTT IMAGING: Head CT noncon: IMPRESSION 1. Decreased, now slitlike, caliber of the shunted ventricular system, with persistent dilation of the anterior right temporal horn suggesting mild entrapment. 2. Unchanged soft tissue thickening versus minimal fluid at the periphery of the right retroauricular shunt reservoir. No new soft tissue fluid collections identified. CXR: IMPRESSION Image shunt tubing appears intact although not well visualized along the right hilum and right heart border and right upper quadrant Imaging independently reviewed / reviewed with radiology. ASSESSMENT: 51 y.o. 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 Incision looks slightly erythematous, with some nonspecific punctate areas of scab/dirt. Head CT obtained 2 days ago demonstrates no ventriculomegaly. Aspect of catheter that has been viewed on chest x-ray demonstrates no clear discontinuities. ESR uptrending from 34 2 days ago to 46 now. CRP elevated to 8.2. PLAN/RECS: -Admit to the hospital, MedSurg level. -Every 4 hour neurochecks -We will tap the shunt and send for culture -Basic labs -Regular diet -SCDs Case will be discussed with Dr. Jimenez, neurosurgery attending. Future Appointments Date Time Provider Department Center 09/08/2022 12:[address] [facility] [address] [facility] [address] [facility] Rad 09/08/2022 1:40 PM Cl Atkins PA [facility] [id number] [facility] Neurosurgery Pager: [phone] Richard Valles MD 08/21/2022 7:29 PM Clinical Documentation Improvement: Active Hospital Problems Diagnosis Headache Resolved Hospital Problems No resolved problems to display. Associated attestation - Rhoda Jimenez MD - 08/24/2022 10:08 AM EDT I have seen and examined the patient, providing miramontes components as outlined below. I have reviewed the resident???s note; my evaluation of the patient is below: 51 y.o. gentleman with a history of shunted hydrocephalus s/p recent right occipital [employer] shunt revision 05/24/2022 (valve replacement), presenting with persistent headache, leukocytosis and elevated inflammatory markers. He will be admitted for a shunt tap, headache management, and monitored for possible shunt infection. His head CT and XR shunt series are all reassuring that the shunt is draining CSF appropriately. His incision appears well healed without signs of infection. He is awake and alerton exam, with baseline amblyopia but no upgaze limitation or other cranial neuropathies. documented in this encounter Procedure Notes * Richard Valles MD - 08/21/2022 7:23 PM EDT [facility] NEUROSURGERY [employer] SHUNT TAP NOTE Date: 08/21/22 Patient: Chapin Costa : [address] Rhoda Jimenez to tap the patient's VPS for symptoms of headache, sweating/chills. Discussed with Dr. Jimenez, who agreed it was reasonable to proceed. Pt seen and examined in his hospital room. Discussed risks and benefits of shunt tap with patient, including risk of introducing new infection which would require shunt revision/explantation in the future. All questions answered, patient wished to proceed. Informed consent obtained. No history of an tiplatelets or anticoagulants. VPS located in right parietal region. Small amount of hair shaved with [...] Plan: -F/u CSF studies Richard Valles MD 08/21/22 7:24 PM documented in this encounter Miscellaneous Notes * Plan of Care - Rhona Navarro RN - 08/25/2022 3:25 AM EDT OUTCOME SUMMARY: Patient A&O x4. VSS on RA. Neuro status is intact. No major events overnight. Waiting for discharge. PLAN MOVING FORWARD: Q4-NC/VS Maintain safety Discharge planning INDIVIDUALIZED FALL PREVENTION INTERVENTIONS: Patient-specific fall risk factors per assessment: Recent stroke, hospital environment, general weakness Assistance: SBA, 1 assist Supervision: Independent, Eyes on Surveillance: Bed locked in low position, call shell within reach, purposeful hourly rounding, clutter free environment, bed/chair alarm on, family at bedside Patient-specific fall prevention interventions for sensory deficits provided: Yes Continue care plan as documented. Problem: Adult Inpatient Plan of Care Goal: [...] Implemented as Appropriate) * Consult Note - Marta Corcoran MD - 08/23/2022 7:24 AM EDT Neurology Inpatient Consult Note - 08/23/2022 Admit date: 08/21/2022 Attending: Rhoda Jimenez MD ID: Ever Costa is a 51 year old 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 s/p [employer] shunt placement with most recent revision done on 05/24/2022 presenting with consistent headache atypical from his [place] headaches HPI: Patient had recent revision done on his Codman Hakim shunt on 05/24/2022 and since that time complaints of headaches, head tenderness, fatigue, chills and sweats. A couple weeks after his revision, he received a course of Keflex as erythema around his shunt incision site was noted. His symptoms continued to persist Earlier this week, he noted that his headache started to change in quality. They have started to become more constant, instead of waxing/waning. He describes it as a throbbing headache in the front of his head that radiates to the right behind is ear (where his shunt incision is). He notes that it is worth with standing, rating his pain as an 8/10, and will slowly improve with sitting to a 4/10. He has been taking ibuprofen this week and one dose of his triptan to try to help manage the pain, but it is not helping much. He is also reporting some tearing from his right eye, photophobia, loss of appetite, and some diaphoresis. He notes that at baseline he is usually 14/30 days headache free a month, but this past month he would say he has been 5-7/30 days headache free. ROS: otherwise negative unless stated in HPI Interval: - shunt tap had been unrevealing - shunt was set to 80 mmH20 - CTH 08/19 with slit-like ventricles, suggestion of mild entrapment of R temporal horn - we recommended consideration for incr shunt pressures to decr drainage - no PRN overnight - Nsgy reports shunt pressure was not adjusted. ALICEA 010 this AM, patient reports much improved from prior and 'hardly even there'. Hospital Medications: Current Facility-Administered Medications Medication Dose Route Frequency Provider Last Rate Last Admin hydrOXYzine (Atarax) tablet 25 mg 25 mg Oral Once PRN Claire Brody PA ARIPiprazole (Abilify) tablet 10 mg 10 mg Oral Daily Claire Brody PA 10 mg at 08/22/22 0850 atorvastatin (Lipitor) tablet 10 mg 10 mg Oral Daily Claire Brody PA 10 mg at 08/22/22 0849 benztropine (Cogentin) tablet 0.5 mg 0.5 mg Oral Nightly Claire Brody PA 0.5 mg at 015 hydrOXYzine (Atarax) tablet 25 mg 25 mg Oral Daily Claire Brody PA 25 mg at 08/22/22 0850 lurasidone (Latuda) tablet 40 mg 40 mg Oral QPM Claire Brody PA 40 mg at 08/22/22 1723 levothyroxine (Synthroid) tablet 25 mcg 25 mcg Oral Daily Claire Brody PA 25 mcg at 08/22/22 0849 metoprolol succinate XL (Toprol-XL) tablet 25 mg 25 mg Oral Daily Claire Brody PA 25 mg at 08/22/22 0849 pantoprazole EC (Protonix) tablet 40 mg 40 mg Oral Daily Claire Brody PA 40 mg at 08/22/22 0850 sertraline (Zoloft) tablet 100 mg 100 mg Oral Daily Claire Brody PA 100 mg at 08/22/22 0849 topiramate (Topamax) tablet 25 mg 25 mg Oral Daily Claire Brody PA 25 mg at 08/22/22 0849 sodium chloride 0.9 % (flush) (BD PosiFlush Normal Saline 0.9) flush 5 mL 5 mL Intravenous BID Claire Brody PA 5 mL at 08/22/22 2013 sodium chloride 0.9 % (flush) (BD PosiFlush Normal Saline 0.9) flush 5-20 mL 5- 20 mL Intravenous Q1Min PRN Claire Brody PA lidocaine (Xylocaine) 1% (10 mg/mL) injection 3 mg 0.3 mL Subcutaneous Once PRN Claire Brody PA senna-docusate (Pericolace) 8.6-50 mg per tablet 2 tablet 2 tablet Oral BID Claire Brody PA docusate sodium (Colace) capsule 100 mg 100 mg Oral BID Claire Brody PA bisacodyL (Dulcolax) suppository 10 mg 10 mg Rectal Daily PRN Claire Brody PA polyethylene glycoL (Miralax) packet 17 g 17 g Oral Daily PRN Claire Brody PA ondansetron (Zofran) tablet 4 mg 4 mg Oral Q8H PRN Claire Brody PA Or ondansetron (pf) (Zofran) (2 mg/mL) injection 4 mg 4 mg Intravenous Q8H PRN Claire Brody PA labetaloL (Normodyne) (5 mg/mL) injection solution 10-20 mg 10-20 mg Intravenous Q1H PRN Claire Brody PA hydrALAZINE (Apresoline) (20 mg/mL) injection 10 mg 10 mg Intravenous Q1H PRN Claire Brody PA acetaminophen (Tylenol) (32.02 mg/mL) oral liquid 1,000 mg 1,000 mg Oral Q6H PRN Claire Brody PA Or acetaminophen (Tylenol) tablet 1,000 mg 1,000 mg Oral Q6H PRN Claire Brody PA Or acetaminophen (Tylenol) suppository 975 mg 975 mg Rectal Q6H PRN Claire Brody PA Home Medications: No current facility-administered medications on file [...] the muscle every 14 days. 0 Past Medical History: Past Medical History: Diagnosis [...] MD at [facility] PRO EXTRACTION ERUPTED TOOTH/EXR N/A 10/18/2020 [...] MD at [facility] PRO UNLISTED PROCEDURE NERVOUS SYSTEM Right 05/24/2022 EXPLORATION VENTRICULO-PERITONEAL SHUNT (WRVU 25.48) performed by Rhoda Jimenez MD at [facility] MAIN OR SHOULDER SURGERY ULNAR TUNNEL RELEASE Right VENTRICULOPERITONEAL SHUNT Multiple revisions - ~46 prior revisions Allergies: Allergies Allergen Reactions Latex Other reaction(s): hives with latex powdered gloves Other reaction(s): hives with latex powdered gloves Penicillins Other reaction(s): Anaphylaxsis, RASH Vancomycin Other reaction(s): Skin Rash Tegaderm [Transparent Dressings] Itching Vancomycin Analogues Vancomycin Hcl Family history: Family History Problem Relation Age of Onset Muscular Dystrophy Cousin Social history: Social History Tobacco Use Smoking status: Never Smokeless tobacco: Never Vaping Use Vaping Use: Never used Substance Use Topics Alcohol use: No Drug use: No Physical Exam: Vitals: Last value Range last 24 hrs Temperature Temp: 36.6 ??C (97.9 ??F) Temp: [36.4 ??C (97.5 ??F)-36.6 ??C (97.9 ??F)] Heart Rate Heart Rate: -- Blood Pressure BP: 132/76 BP: (113-132)/(71-76) Respiratory Rate Resp: 15 Resp: [13-16] SpO2 SpO2: 94 % SpO2: [91 %-94 %] I/O: 08/22 0701 - 08/23 0700 In: 1510 [P.O.:1500; I.V.:10] Out: - Physical Exam Neuro: -Patient alert and oriented X3 -Attention intact, speech is clear -CN: PERRL, EOM's generally intact (lazy eye OD), no facial asymmetry, tongue midline -Motor: Strength 5/5 in LUE, bilateral lower extremities, 4/5 in RUE which he attributes to severalsurgeries that has been performed on that arm. -Sensory: intact to light touch, no pronator drift -Reflex: 2+ throughout -Coordination intact with FNF. There is a fine BL UE tremor. Abdominal: abdomen soft, mild tenderness to palpation of RUQ Labs: Last wbc, hgb, hct plt Recent Labs 08/23/22 0644 WBC 19.5* HGB 17.6* HCT 51.3* Last 3 wbc, hgb, hct plt Recent Labs 08/23/22 0644 08/22/22 0844 08/19/22 1334 06/10/22 1509 05/25/22 0038 WBC 19.5* 21.8* 13.0* < > 18.2* HGB 17.6* 17.4* -- -- 16.0 HCT 51.3* 51.4* -- -- 46.7 PLATELET 288 300 -- -- 275 < > = values in this interval not displayed. Last 3 Lytes Recent Labs 08/23/22 0644 08/22/22 0844 05/25/22 0038 NA 137 136 135 K 4.1 4.0 4.3 CL 104 101 101 CO2 21* 20* 21* BUN 21* 20 16 CREATININE 1.30 1.21 1.07 Last Ca, Mg, Phos Recent Labs 08/23/22 0644 08/22/22 0844 CALCIUM 9.3 9.8 PHOS -- 3.3 MAGNESIUM -- 0.91 Last 3 TFT Recent Labs 05/23/22 2032 TSH 2.33 Last CRP, SEDRATE Recent Labs 08/23/22 0644 08/21/22 1814 CRP 3.6 8.2* SEDRATE -- 46* Diagnostic Tests and Imaging: No results found for this visit on 08/21/22. 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 Temporal horn. Shunt tap was performed and CSF analysis was unremarkable, culture has no growth to date. Shunt set to 80 mm H20 and Nsgy reports this was not changed. However this morning, the patient reports the ALICEA has completely resolved. The etiology of his ALICEA was unclear but reassuring that it has now completely resolved. No further workup or treatment recommended from a neurology perspective. Neuro consult service to sign off at this time. Marta Corcoran MD Consult Neurology Service 08/22/2022 Associated attestation - Isac Anderson MD - 08/26/2022 6:57 AM EDT Neurology Attending Note Isac Anderson MD PhD (pager [phone]) I have seen and examined Chapin Costa on 08/[address] Corcoran, whose note contains our history, exam, data/imaging review and assessment and recommendation. Doing well now after the shunt tap. Symptoms resolved. Neurology will sign off. * Initial Assessments - Sarah Rodriguez RN - 08/22/2022 2:35 PM EDT Office of Care Management Initial Assessment Sarah Rodriguez RN reviewed record and discussed patient with Care Team. Source of Information: Team, bedside nurse, medical record, and Patient, Chart Review, Guardian (mom is Guardian, she is on her way to hospital) EDWARD LARES Introduced self/reviewed role; services accepted. 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 Hyperlipidemia Hypertension Memory disorder Seizures Syncope and collapse Vision abnormalities related to hydrocephalus Hospitalizations Within the Past 30 Days: no previous admission in last 30 days Current Decision-Making Capacity: Guardian Name(s) of Court Appointed Guardian(s): Tracy Ha or Cl Costa Court Appointed Guardian(s) Contact Information: [phone] Guardianship paperwork on file?: Yes Advance Care Planning: Attempt Cardiopulmonary Resuscitation - Inpatient <no information> -Advanced Directive: Other (Guardian) Current Coping/Education/Information Needs: increased headaches, chills, incr WBC Current Functional Ability: Independent, Assistive Person Functional Status Prior to Admission: Independent, Assistive Person Prior ADLs & IADLs: Assistance Needed with ADLs & IADLs Driving: Family / Friends Provide Rides Groceries: Family / Friends Provide Groceries (someone transports to and from store) Home Environment: Others in the home: alone. Current Living Arrangements: home/apartment/condo. Accessibility Concerns:elevator to third fl apt, but can do stairs independently (does not drive). Resource / Environmental Concerns: Resource/Environmental Concerns: none Current DME: none Home Address confirmed as: [address] [place] [id number] Social & Family Supports: All names listed below confirmed with patient as current and correct Extended Emergency Contact Information Primary Emergency Contact: Tracy Fregoso Address: [address], [place] [id number] [place] [address] Mobile Relation: Guardianship Secondary Emergency Contact: RICH FREGOSO Address: [address] [place], [place] [id number] [place] [address] Mobile Relation: Step parent Current Care Provided by: self Provides Primary Care For: no one, unable/limited ability to care for self Caregiver if needed: parent(s) Quality of Family relationships: helpful, involved, supportive Community Resources being provided currently: none Behavioral Health History: depression, memory issues Substance Use/Abuse listed: Social History Tobacco Use [...] risk 20 to 40 points: Addiction likely Health/Prescription Coverage: Primary Insurance: MEDICARE Payor: MEDICARE / Plan: MEDICARE PART A & B / Product Type: *No Product type* / Secondary Insurance: MEDICAID [place] ONLY if patient has Medicare A&B - Does this patient have secondary insurance?: Yes ; Prescription Coverage: Yes Preferred Pharmacy: [facility] [address] [place] [id number] Status: Patient is a : No Primary Care Provider confirmed: MARVA Gordon [phone] Patient/Caregiver Goals of Treatment: return home Potential Needs for Transition of Care: none Agency Referrals: Not Applicable Transportation: no concerns Transportation Anticipated: family or friend will provide, health plan transportation Concerns to be Addressed: denies needs/concerns at this time Assessment: Patient is admitted to Neurosurgery service for headaches, chills for VPS tap Plan: Pt is independent in ambulation and manages own ADL. Needs assist with anything that requirestransport (such as groceries). Mother is Guardian. Pt states mother is on her way to visit; will transport home once medically ready. Fills prescriptions at pharmacy listed above: confirmed. A member of the Care Management team will continue to monitor progress, follow for continuity of care and assist with transition of care planning. Deena CONLEY CM Neurology Methods Analyst Data ProcessingShipping Weigher of Care Management Pager [phone] * Consult Note - Nino Lamb MD - 08/22/2022 2:00 PM EDT Neurology Inpatient Consult Note - 08/22/2022 Admit date: 08/21/2022 Attending: Rhoda Jimenez MD ID: Ever Costa is a 51 year old 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 s/p [employer] shunt placement with most recent revision done on 05/24/2022 presenting with consistent headache atypical from his bas enrique headaches HPI: Patient had recent revision done on his Codman Hakim shunt on 05/24/2022 and since that time complaints of headaches, head tenderness, fatigue, chills and sweats. A couple weeks after his revision, he received a course of Keflex as erythema around his shunt incision site was noted. His symptoms continued to persist Earlier this week, he noted that his headache started to change in quality. They have started to become more constant, instead of waxing/waning. He describes it as a throbbing headache in the front of his head that radiates to the right behind is ear (where his shunt incision is). He notes that it is worth with standing, rating his pain as an 8/10, and will slowly improve with sitting to a 4/10. He has been taking ibuprofen this week and one dose of his triptan to try to help manage the pain, but it is not helping much. He is also reporting some tearing from his right eye, photophobia, loss of appetite, and some diaphoresis. He notes that at baseline he is usually 14/30 days headache free a month, but this past month he would say he has been 5-7/30 days headache free. ROS: otherwise negative unless stated in HPI Hospital Medications: Current Facility-Administered Medications Medication Dose Route Frequency Provider Last Rate Last Admin hydrOXYzine (Atarax) tablet 25 mg 25 mg Oral Once PRN Claire Brody PA ARIPiprazole (Abilify) tablet 10 mg 10 mg Oral Daily Claire Brody PA 10 mg at 08/22/22 0850 atorvastatin (Lipitor) tablet 10 mg 10 mg Oral Daily Claire Brody PA 10 mg at 08/22/22 0849 benztropine (Cogentin) tablet 0.5 mg 0.5 mg Oral Nightly Claire Brody PA 0.5 mg at 126 hydrOXYzine (Atarax) tablet 25 mg 25 mg Oral Daily Claire Brody PA 25 mg at 08/22/22 0850 lurasidone (Latuda) tablet 40 mg 40 mg Oral QPM Claire Brody PA 40 mg at 08/21/224 levothyroxine (Synthroid) tablet 25 mcg 25 mcg Oral Daily Claire Bordy PA 25 mcg at 08/22/22 0849 metoprolol succinate XL (Toprol-XL) tablet 25 mg 25 mg Oral Daily Claire Brody PA 25 mg at 08/22/22 0849 pantoprazole EC (Protonix) tablet 40 mg 40 mg Oral Daily Claire Brody PA 40 mg at 08/22/22 0850 sertraline (Zoloft) tablet 100 mg 100 mg Oral Daily Claire Brody PA 100 mg at 08/22/22 0849 topiramate (Topamax) tablet 25 mg 25 mg Oral Daily Claire Brody PA 25 mg at 08/22/22 0849 sodium chloride 0.9 % (flush) (BD PosiFlush Normal Saline 0.9) flush 5 mL 5 mL Intravenous BID Claire Brody PA 5 mL at 08/22/22 0851 sodium chloride 0.9 % (flush) (BD PosiFlush Normal Saline 0.9) flush 5-20 mL 5- 20 mL Intravenous Q1Min PRN Claire Brody PA lidocaine (Xylocaine) 1% (10 mg/mL) injection 3 mg 0.3 mL Subcutaneous Once PRN Claire Brody PA senna-docusate (Pericolace) 8.6-50 mg per tablet 2 tablet 2 tablet Oral BID Claire Brody PA docusate sodium (Colace) capsule 100 mg 100 mg Oral BID Claire Brody PA bisacodyL (Dulcolax) suppository 10 mg 10 mg Rectal Daily PRN Claire Brody PA polyethylene glycoL (Miralax) packet 17 g 17 g Oral Daily PRN Claire Brody PA ondansetron (Zofran) tablet 4 mg 4 mg Oral Q8H PRN Claire Brody PA Or ondansetron (pf) (Zofran) (2 mg/mL) injection 4 mg 4 mg Intravenous Q8H PRN Claire Brody PA labetaloL (Normodyne) (5 mg/mL) injection solution 10-20 mg 10-20 mg Intravenous Q1H PRN Claire Brody PA hydrALAZINE (Apresoline) (20 mg/mL) injection 10 mg 10 mg Intravenous Q1H PRN Claire Brody PA acetaminophen (Tylenol) (32.02 mg/mL) oral liquid 1,000 mg 1,000 mg Oral Q6H PRN Claire Brody PA Or acetaminophen (Tylenol) tablet 1,000 mg 1,000 mg Oral Q6H PRN Claire Brody PA Or acetaminophen (Tylenol) suppository 975 mg 975 mg Rectal Q6H PRN Claire Brody PA Home Medications: No current facility-administered medications on file [...] the muscle every 14 days. 0 Past Medical History: Past Medical History: Diagnosis [...] MD at [facility] PRO EXTRACTION ERUPTED TOOTH/EXR N/A 10/18/2020 [...] MD at [facility] PRO UNLISTED PROCEDURE NERVOUS SYSTEM Right 05/24/2022 EXPLORATION VENTRICULO-PERITONEAL SHUNT (WRVU 25.48) performed by Rhoda Jimenez MD at [facility] MAIN OR SHOULDER SURGERY ULNAR TUNNEL RELEASE Right VENTRICULOPERITONEAL SHUNT Multiple revisions - ~46 prior revisions Allergies: Allergies Allergen Reactions Latex Other reaction(s): hives with latex powdered gloves Other reaction(s): hives with latex powdered gloves Penicillins Other reaction(s): Anaphylaxsis, RASH Vancomycin Other reaction(s): Skin Rash Tegaderm [Transparent Dressings] Itching Vancomycin Analogues Vancomycin Hcl Family history: Family History Problem Relation Age of Onset Muscular Dystrophy Cousin Social history: Social History Tobacco Use Smoking status: Never Smokeless tobacco: Never Vaping Use Vaping Use: Never used Substance Use Topics Alcohol use: No Drug use: No Physical Exam: Vitals: Last value Range last 24 hrs Temperature Temp: 36.4 ??C (97.5 ??F) Temp: [36.4 ??C (97.5 ??F)-36.6 ??C (97.9 ??F)] Heart Rate Heart Rate: -- Blood Pressure BP: 115/72 BP: (111-124)/(54-82) Respiratory Rate Resp: 15 Resp: [13-16] SpO2 SpO2: 91 % SpO2: [91 %-94 %] I/O: 08/21 0701 - 08/22 0700 In: 700 [P.O.:700] Out: - Physical Exam Neuro: -Patient alert and oriented X3 -Attention intact, speech is clear -CN: PERRL, EOM's generally intact, unable to assess for upward gaze to do pain with eye movement, no facial asymmetry, tongue midline -Motor: Strength 5/5 in LUE, bilateral lower extremities, 4/5 in RUE which he attributes to severalsurgeries that has been performed on that arm. -Sensory: intact to light touch, no pronator drift -Reflex: 2+ throughout -Coordination intact with FNF and heel to fink testing. Patient ambulates well, does report increased headache upon standing and ambulating Abdominal: abdomen soft, mild tenderness to palpation of RUQ Labs: Last wbc, hgb, hct plt Recent Labs 08/22/22 0844 WBC 21.8* HGB 17.4* HCT 51.4* Last 3 wbc, hgb, hct plt Recent Labs 08/22/22 0844 08/19/22 1334 06/10/22 1509 05/25/22 0038 05/23/222031 WBC 21.8* 13.0* 11.0* 18.2* 16.4* HGB 17.4* -- -- 16.0 17.2* HCT 51.4* -- -- 46.7 49.8* PLATELET 300 -- -- 275 279 Last 3 Lytes Recent Labs 08/22/22 0844 05/25/22 0038 05/23/222031 NA 136 135 138 K 4.0 4.3 4.5 CL 101 101 100 CO2 20* 21* 23 BUN 20 16 14 CREATININE 1.21 1.07 0.95 Last Ca, Mg, Phos Recent Labs 08/22/22 0844 CALCIUM 9.8 PHOS 3.3 MAGNESIUM 0.91 Last 3 TFT Recent Labs 05/23/222031 TSH 2.33 Last CRP, SEDRATE Recent Labs 08/21/22 1814 CRP 8.2* SEDRATE 46* Diagnostic Tests and Imaging: No results found for this visit on 08/21/22. 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 Temporal horn. Shunt tap was performed and CSF analysis was unremarkable, culture has no growth to date. Shunt set to 80 mm H20 Symptoms possibly due to shunt overdrainage considering the positional aspect of his headache. Can also consider [employer] shunt malfunction. Recommendations: - Consider increasing shunt pressure settings to decrease drainage and evaluate for improvement of his symptoms. - Continue to monitor for culture results of tap - q4 neuro checks Nino Lamb MD, Ophthalmology PGY-1 Consult Neurology Service, #[id number] 08/22/2022 Associated attestation - sIac Anderson MD - 08/24/2022 7:48 AM EDT Neurology Attending Note Isac Anderson MD PhD (pager [phone]) I have seen and examined Chapin Costa on 08/[address] Lamb, whose note containsour history, exam, data/imaging review and assessment and recommendations. Question of overdrainagewould be one explanation worth considering given the positional nature. Also consider reducing topiramate due to its carbonic anhydrase activity. documented in this encounter Plan of Treatment Not on file documented as of this encounter Procedures Procedure Name Priority Date/Time Associated Diagnosis Comments HEMOGRAM Routine 08/25/2022 5:46 AM EDT DIFFERENTIAL, AUTOMATED Routine 08/25/2022 5:46 AM EDT CBC (WITH DIFF) Routine 08/25/2022 5:46 AM EDT BASIC METABOLIC PANEL Routine 08/25/2022 5:46 AM EDT XR ABDOMEN 1 VIEW Routine 08/24/2022 1:3 2 PM EDT XR CHEST ONE VIEW Routine 08/24/2022 1:3 1 PM EDT PATHOLOGY SLIDE REVIEW Routine 12:08 PM EDT SCAN, PERIPHERAL BLOOD Routine 12:08 PM EDT HEMOGRAM Routine 08/24/2022 12:08 PM EDT DIFFERENTIAL, AUTOMATED Routine 08/24/2022 12:08 PM EDT BLOOD CULTURE STAT 08/24/2022 12:08 PM EDT PATHOLOGY SLIDE REVIEW Routine 11:40 AM EDT URINALYSIS WITH REFLEX CULTURE Routine 08/24/2022 11:00 AM EDT HEMOGRAM Routine 08/24/2022 6:03 AM EDT DIFFERENTIAL, AUTOMATED Routine 08/24/2022 6:03 AM EDT CBC (WITH DIFF) Routine 08/24/2022 6:03 AM EDT BASIC METABOLIC PANEL Routine 08/24/2022 6:03 AM EDT CRP, ACUTE INFLAMMATION Routine 08/23/2022 6:44 AM EDT HEMOGRAM Routine 08/23/2022 6:44 AM EDT DIFFERENTIAL, AUTOMATED Routine 08/23/2022 6:44 AM EDT SEDIMENTATION RATE Routine 08/23/2022 6: 44 AM EDT CBC (WITH DIFF) Routine 08/23/2022 6:44 AM EDT BASIC METABOLIC PANEL Routine 08/23/2022 6:44 AM EDT HEMOGRAM Routine 08/22/2022 8:44 AM EDT DIFFERENTIAL, AUTOMATED Routine 08/22/2022 8:44 AM EDT CBC (WITH DIFF) Routine 08/22/2022 8:44 AM EDT PHOSPHORUS Routine 08/22/2022 8:44 AM EDT MAGNESIUM Routine 08/22/2022 8:44 AM EDT BASIC METABOLIC PANEL Routine 08/22/2022 8:44 AM EDT CHEMICAL TEST ENGINEER SHUNT CULTURE Routine 08/21/2022 7:1 4 PM EDT HC CSF CELL COUNT Routine 08/21/2022 6:5 7 PM EDT CSF CELL COUNT Routine 08/21/2022 6:57 PM EDT CSF DESC 1 Routine 08/21/2022 6:57 PM EDT PROTEIN LEVEL CSF Routine 08/21/2022 6:5 7 PM EDT GLUCOSE LEVEL CSF Routine 08/21/2022 6:5 7 PM EDT CRP, ACUTE INFLAMMATION Routine 08/21/2022 6:14 PM EDT SEDIMENTATION RATE Routine 08/21/2022 6: 14 PM EDT documented in this encounter Results * (ABNORMAL) Differential, Automated (08/25/2022 5:46 AM EDT) Neutrophil % 67.9 % [facility] Neutrophil Absolute 10.09(H) 1.70 - 6.10 x10(3)/mc L [facility] Lymph % 24.3 % [facility] Lymphocytes Abs 3.6(H) 0.9 - 3.2 x10(3)/mc L [facility] Monocyte % 5.7 % [facility] Monocyte Abs 0.8 0.3 - 0.9 x10(3)/mc L [facility] Eos % 1.2 % [facility] Eosinophils Abs 0.2 0.0 - 0.4 x10(3)/mc L [facility] Basophil % 0.5 % [facility] Baso Absolute 0.1 0.0 - 0.1 x10(3)/mc L [facility] Immature Gran % 0.40 % [facility] Comment: Immature granulocytes(IG's)percentage and absolute count will include metamyelocytes, myelocytes, and promyelocytes. Blood smears from CBCs yielding IG's will be scanned manually for concordance. If this scan disagrees with the automated IG or if promyelocytes are noted, a manual differential will be performed. Immature Gran Absolute 0.06(H) 0.00 - 0.04 x10(3)/mc L [facility] Blood 08/25/2022 5:46 AM EDT 08/25/2022 5:56 AM EDT Narrative Resulting Agency Comment Spec In Lab Claire DURHAM HEMATOLOGY ORDERAB LES [facility] [place] [address] * (ABNORMAL) Hemogram (08/25/2022 5:46 AM EDT) White Blood Cell 14.8(H) 4.0 - 9.5 x10(3)/mc L [facility] Red Blood Cell 6.10(H) 4.58 - 5.54 x10(6)/mc L [facility] Hemoglobin 17.8(H) 13.7 - 16.5 g/dL [facility] Hematocrit 52.9(H) 40.5 - 48.5 % [facility] Mean Cell Volume 86.7 82.9 - 93.1 fL [facility] Mean Cell Hemoglobin 29.2 27.5 - 32.1 pg [facility] Mean Cell Hemoglobin Concentration 33.6 32.0 - 35.7 g/dL [facility] Platelet 241 145 - 357 x10(3)/mc L [facility] RDW Standard Deviation 41.1 36.0 - 45.0 fL [facility] RDW coefficient of variation 13.0 11.4 - 13.8 % [facility] Mean Platelet Volume 9.0 7.6 - 12.9 fL [facility] NRBC% auto 0.0 % [facility] NRBC Absolute 0.000 0.000 - 0.000 x10(3)/mc L [facility] Blood 08/25/2022 5:46 AM EDT 08/25/2022 5:56 AM EDT Narrative Resulting Agency Comment Spec In Lab Claire DURHAM HEMATOLOGY ORDERAB LES Performing Organization Address City/[facility]/ZIP Co de Phone Number [facility] [place] [address] * (ABNORMAL) Basic Metabolic Panel (non-fasting) (08/25/2022 5:46 AM EDT) Glucose 107 65 - 199 mg/dL [facility] Comment:Diabetes: >=200 mg/d L plus symptoms Blood Urea Nitrogen 23(H) 10 - 20 mg/dL [facility] Creatinine 1.21 0.80 - 1.50 mg/dL [facility] Sodium 138 135 - 145 mmol/L [facility] Potassium 4.0 3.5 - 5.0 mmol/L [facility] Comment: Please note: ??Patients with WBC >100,000 may have falsely elevated Potassium levels. ??For accurate Potassium quantification in these patients send serum separator tube (gold top) for subsequent determinations. ??Contact the Clinical Chemistry Laboratory if there are any questions. Chloride 104 98 - 107 mmol/L [facility] Carbon Dioxide 21(L) 22 - 31 mmol/L [facility] Anion Gap 13 5 - 15 mmol/L [facility] Calcium 9.2 8.5 - 10.5 mg/dL [facility] Est Glomerular Filtration Rate 73 >=60 mL/min/1. 73 m?? [facility] Comment: This patient's estimated [...] and symptoms in addition to eGFR. Blood 08/25/2022 5:46 AM EDT 08/25/2022 5:56 AM EDT Narrative Resulting Agency Comment Spec In Lab Rhoda Jimenez MD CHEMISTRY ORDERABLES [facility] [place] [address] * XR Abdomen 1 view (Generic) (08/24/2022 1:32 PM EDT) Anatomical Region Laterality Modality Abdomen N/A Digital Radiogra phy Impressions 08/24/2022 2:58 PM EDT No acute abnormality identified on supine views of the abdomen. Paucity of small bowel gas is a nonspecific finding. Thank you for letting us participate in the care of this patient. ??If you are a health care provider and have any questions regarding this report, please contact the number below. ??For patients who have questions please contact the health live in caregiver that requested your imaging first. ? Narrative 08/24/2022 2:58 PM EDT EXAMINATION: XR ABDOMEN 1 VIEW (GENERIC) CLINICAL HISTORY: Elevated WBC of unknown source TECHNIQUE: 2 AP supine images of the abdomen. COMPARISON: None FINDINGS: Right-sided [employer] shunt ends in projection onto the mid abdomen. Paucity of small bowel gas. Normal bowel gas and some fecal material along the colon. No abnormal distention. Cholecystectomy clips in the right upper abdomen. Procedure Note Marianne Martinez MD - 08/24/2022 EXAMINATION: XR ABDOMEN 1 VIEW (GENERIC) CLINICAL HISTORY: Elevated WBC of unknown source TECHNIQUE: 2 AP supine images of the abdomen. COMPARISON: None FINDINGS: Right-sided [employer] shunt ends in projection onto the mid abdomen. Paucity ofsmall bowel gas. Normal bowel gas and some fecal material along the colon. Noabnormal distention. Cholecystectomy clips in the right upper abdomen. IMPRESSION No acute abnormality identified on supine views of the abdomen. Paucity ofsmall bowel gas is a nonspecific finding. Thank you for letting us participate in the care of this patient. If youare a health care provider and have any questions regarding this report,please contact the number below. For patients who have questions please contactthe health live in caregiver that requested your imaging first. Electronically signed by: Marianne Burleson MD, [facility] ([phone]), at 08/24/2022 2:58 PM Rhoda Jimenez MD IMG DX ORDERABLES * XR Chest One View (08/24/2022 1:31 PM EDT) Anatomical Region Laterality Modality Chest N/A Digital Radiogra phy Impressions 08/24/2022 2:53 PM EDT No acute pathology. Thank you for letting us participate in the care of this patient. ??If you are a health care provider and have any questions regarding this report, please contact the number below. ??For patients who have questions please contact the health live in caregiver that requested your imaging first. ? Narrative 08/24/2022 2:53 PM EDT EXAMINATION: XR CHEST ONE VIEW CLINICAL HISTORY: Elevated WBC of unknown source TECHNIQUE: 1 view of the chest COMPARISON: 08/19/2022. FINDINGS: Lungs are clear. No pleural effusion. Normal size of the heart and normal width of the mediastinum. Incompletely visualized [employer] shunt on the right and additional catheter fragment on the left as before. Procedure Note Marianne Martinez MD - 08/24/2022 EXAMINATION: XR CHEST ONE VIEW CLINICAL HISTORY: Elevated WBC of unknown source TECHNIQUE: 1 view of the chest COMPARISON: 08/19/2022. FINDINGS: Lungs are clear. No pleural effusion. Normal size of the heart and normalwidth of the mediastinum. Incompletely visualized [employer] shunt on the right andadditional catheter fragment on the left as before. IMPRESSION No acute pathology. Thank you for letting us participate in the care of this patient. If youare a health care provider and have any questions regarding this report,please contact the number below. For patients who have questions please contactthe health live in caregiver that requested your imaging first. Electronically signed by: Marianne Burleson MD, [facility] ([phone]), at 08/24/2022 2:53 PM Rhoda Jimenez MD IMG DX ORDERABLES * Scan, Peripheral Blood (08/24/2022 12:08 PM EDT) Plat estimate Normal [facility] RBC Morphology Normal [facility] Blood 08/24/2022 12:0 8 PM EDT 08/24/2022 12:15 PM EDT Narrative Resulting Agency Comment Spec In Lab Deng Dupree MD HEMATOLOGY ORDERABLE S Performing Organization Address City/State/[facility] Co de Phone Number [facility] [place] [address] * (ABNORMAL) Differential, Automated (08/24/2022 12:08 PM EDT) Neutrophil % 73.9 % [facility] Neutrophil Absolute 13.36(H) 1.70 - 6.10 x10(3)/mc L [facility] Lymph % 19.0 % [facility] Lymphocytes Abs 3.4(H) 0.9 - 3.2 x10(3)/mc L [facility] Monocyte % 5.6 % [facility] Monocyte Abs 1.0(H) 0.3 - 0.9 x10(3)/mc L [facility] Eos % 0.8 % [facility] Eosinophils Abs 0.1 0.0 - 0.4 x10(3)/mc L [facility] Basophil % 0.3 % [facility] Baso Absolute 0.1 0.0 - 0.1 x10(3)/mc L [facility] Immature Gran % 0.40 % [facility] Comment: Immature granulocytes(IG's)percentage and absolute count will include metamyelocytes, myelocytes, and promyelocytes. Blood smears from CBCs yielding IG's will be scanned manually for concordance. If this scan disagrees with the automated IG or if promyelocytes are noted, a manual differential will be performed. Immature Gran Absolute 0.08(H) 0.00 - 0.04 x10(3)/mc L [facility] Blood 08/24/2022 12:0 8 PM EDT 08/24/2022 12:15 PM EDT Narrative Resulting Agency Comment Spec In Lab Deng Dupree MD HEMATOLOGY ORDERABLE S [facility] [place] [address] * (ABNORMAL) Hemogram (08/24/2022 12:08 PM EDT) White Blood Cell 18.1(H) 4.0 - 9.5 x10(3)/mc L [facility] Red Blood Cell 6.10(H) 4.58 - 5.54 x10(6)/mc L [facility] Hemoglobin 18.2(H) 13.7 - 16.5 g/dL [facility] Hematocrit 52.7(H) 40.5 - 48.5 % [facility] Mean Cell Volume 86.4 82.9 - 93.1 fL [facility] Mean Cell Hemoglobin 29.8 27.5 - 32.1 pg [facility] Mean Cell Hemoglobin Concentration 34.5 32.0 - 35.7 g/dL [facility] Platelet 276 145 - 357 x10(3)/mc L [facility] RDW Standard Deviation 40.5 36.0 - 45.0 fL [facility] RDW coefficient of variation 13.1 11.4 - 13.8 % [facility] Mean Platelet Volume 9.1 7.6 - 12.[address] [facility] NRBC% auto 0.0 % [facility] NRBC Absolute 0.000 0.000 - 0.000 x10(3)/mc L [facility] Blood 08/24/2022 12:0 8 PM EDT 08/24/2022 12:15 PM EDT Narrative Resulting Agency Comment Spec In Lab Deng Dupree MD HEMATOLOGY ORDERABLE S Performing Organization Address [facility] de Phone Number [facility] [place] [address] * Peripheral Smear Review (08/24/2022 12:08 PM EDT) Peripheral Smear Review See Comment [facility] Comment: When completed by the Pathologist, report [id number] will display under Hematopathology Reports. Blood 08/24/2022 12:0 8 PM EDT 08/24/2022 12:15 PM EDT Narrative Resulting Agency Comment Spec In Lab Rhoda Jimenez MD HEMATOLOGY ORDERABLE S Performing Organization Address [facility] Co de Phone Number [facility] [place] [address] * Blood culture (08/24/2022 12:08 PM EDT) Blood Culture No growth at 5 days. [facility] Blood 08/24/2022 12:0 8 PM EDT 08/24/2022 1:11 PM EDT Comment:LA Narrative Resulting Agency Comment Spec In Lab Rhoda Jimenez MD MICROBIOLOGY - BLOOD ORDERABLES Performing Organization Address [facility] de Phone Number [facility] [place] [address] * Smear Review Report (08/24/2022 11:40 AM EDT) Smear Review Report [id number] ? Location: L5WD; 0503; B The signing pathologist has (i) examined the relevant preparation(s) for the specimen(s) and (ii) rendered or confirmed the diagnosis(es). . ? Smear Review DIAGNOSIS PERIPHERAL BLOOD, SMEAR REVIEW: - Leukocytosis, polycythemia (see Discussion). Electronically signed by: ?Candice SNELL Wood Delacruz Verified: ??08/25/2022 13:01 ??Pathologist Performed at: ??-[facility] Dept. of Pathology, [place] [id number] Software Qa Manager: Jayjay Covarrubias MD, FCAP, ??CLIA Certificate: [id number] DISCUSSION No diagnostic morphologic abnormalities, such as increased schistocytes or overt features of dyspoiesis, are appreciated. Differential etiologies include inflammation, infection, medications and multifactorial. Although a primary hematologic disorder cannot be entirely excluded, it is not favored given these morphologic findings. If the patient's cytoses worsen or persist, additional testing to rule out a myeloproliferative disorder could be pursued (NGS, [id number]). ADDITIONAL STUDIES 08/24/22 06:03 EDT ?? WBC ??18.5 x10(3)/mcL (Ref. Range 4.0 - 9.5) ?? RBC 6.06 x10(6)/mcL (Ref. Range 4.58 - 5.54) ?? Hgb 18.0 g/dL (Ref. Range 13.7 - 16.5) ?? Hct 52.7 % (Ref. Range 40.5 - 48.5) ?? MCV 87.0 fL (Ref. Range 82.9 - 93.1) ?? MCH 29.7 pg (Ref. Range 27.5 - 32.1) ?? MCHC 34.2 g/dL (Ref. Range 32.0 - 35.7) ?? RDWSD 41.1 fL (Ref. Range 36.0 - 45.0) ?? RDWCV 13.2 % (Ref. Range 11.4 - 13.8) ?? Platelet 241 x10(3)/mcL (Ref. Range 145 - 357) ?? MPV 9.1 fL (Ref. Range 7.6 - 12.9) ?? NRBC% auto 0.0 % ?? NRBC Absolute 0.000 x10(3)/mcL (Ref. Range 0.000 - 0.000) ?? Neutrophil % 73.7 % ?? Immature Gran % * 0.40 % ?? Lymph % 19.9 % ?? Monocyte % 5.1 % ?? Eos % 0.6 % ?? Basophil % 0.3 % ?? Neutro Absolute 13.62 x10(3)/mcL (Ref. Range 1.70 - 6.10) ?? Immature Gran 0.08 x10(3)/mcL (Ref. Range 0.00 - 0.04) ?? Lymph Absolute 3.7 x10(3)/mcL (Ref. Range 0.9 - 3.2) ?? Monocy Absolute 1.0 x10(3)/mcL (Ref. Range 0.3 - 0.9) ?? Eos Absolute 0.1 x10(3)/mcL (Ref. Range 0.0 - 0.4) ?? Baso Absolute 0.0 x10(3)/mcL (Ref. Range 0.0 - 0.1) Red cells: Polycythemia and erythrocytosis; polychromasia. Leukocytes: Leukocytosis with absolute neutrophilia and slight left-shift. Borderline absolute monocytosis and lymphocytosis. Platelets: Adequate morphology. . CLINICAL INFORMATION 51 year old male with leukocytosis of unknown etiology. [facility] 08/24/2022 11:4 0 AM EDT Deng Dupree MD HEMATOLOGY ORDERABLE S [facility] [place] [address] * Urinalysis with reflex Culture (08/24/2022 11:00 AM EDT) Glucose, Urine Dipstick Negative Negative mg/dL [facility] Protein, Urine Dipstick Negative Negative mg/dL [facility] Bilirubin, Urine Dipstick Negative Negative mg/dL [facility] Comment: Clinical correlation required for positive Urine Bilirubin results as false positive may occur with some drugs and drug related products. If a false positive is suspected a serum total bilirubin should be considered if clinically indicated. Urobilinogen, Urine Dipstick Normal Normal mg/dL [facility] pH, Urn (dipstick) 6.0 5.0 - 8.0 [facility] Blood, Urine Dipstick Negative Negative mg/dL [facility] Ketone, Urine Dipstick Negative Negative mg/dL [facility] Nitrite, Urine Dipstick Negative Negative [facility] Leukocytes, Urine Dipstick Negative Negative mcL [facility] Appearance, Urine Dipstick Clear Clear [facility] Specific [place] Urine Automated 1.024 1.005 - 1.030 [facility] Color, Urine Dipstick Yellow Yellow [facility] Reflex to Culture No [facility] Clean Catch Urine 08/24/2022 11:00 AM EDT 08/24/2022 11:50 AM EDT Narrative Resulting Agency Comment Spec In Lab Rhoda Jimenez MD URINE ORDERABLES [facility] [place] [address] * (ABNORMAL) Differential, Automated (08/24/2022 6:03 AM EDT) Neutrophil % 73.7 % [facility] Neutrophil Absolute 13.62(H) 1.70 - 6.10 x10(3)/mc L [facility] Lymph % 19.9 % [facility] Lymphocytes Abs 3.7(H) 0.9 - 3.2 x10(3)/mc L [facility] Monocyte % 5.1 % [facility] Monocyte Abs 1.0(H) 0.3 - 0.9 x10(3)/mc L [facility] Eos % 0.6 % [facility] Eosinophils Abs 0.1 0.0 - 0.4 x10(3)/mc L [facility] Basophil % 0.3 % [facility] Baso Absolute 0.0 0.0 - 0.1 x10(3)/mc L [facility] Immature Gran % 0.40 % [facility] Comment: Immature granulocytes(IG's)percentage and absolute count will include metamyelocytes, myelocytes, and promyelocytes. Blood smears from CBCs yielding IG's will be scanned manually for concordance. If this scan disagrees with the automated IG or if promyelocytes are noted, a manual differential will be performed. Immature Gran Absolute 0.08(H) 0.00 - 0.04 x10(3)/mc L [facility] Blood 08/24/2022 6:03 AM EDT 08/24/2022 6:28 AM EDT Narrative Resulting Agency Comment Spec In Lab Claire DURHAM HEMATOLOGY ORDERAB LES [facility] [place] [address] * (ABNORMAL) Hemogram (08/24/2022 6:03 AM EDT) White Blood Cell 18.5(H) 4.0 - 9.5 x10(3)/mc L [facility] Red Blood Cell 6.06(H) 4.58 - 5.54 x10(6)/mc L [facility] Hemoglobin 18.0(H) 13.7 - 16.5 g/dL [facility] Hematocrit 52.7(H) 40.5 - 48.5 % [facility] Mean Cell Volume 87.0 82.9 - 93.1 fL [facility] Mean Cell Hemoglobin 29.7 27.5 - 32.1 pg [facility] Mean Cell Hemoglobin Concentration 34.2 32.0 - 35.7 g/dL [facility] Platelet 241 145 - 357 x10(3)/mc L [facility] RDW Standard Deviation 41.1 36.0 - 45.0 fL [facility] RDW coefficient of variation 13.2 11.4 - 13.8 % [facility] Mean Platelet Volume 9.1 7.6 - 12.9 fL [facility] NRBC% auto 0.0 % [facility] NRBC Absolute 0.000 0.000 - 0.000 x10(3)/mc L [facility] Blood 08/24/2022 6:03 AM EDT 08/24/2022 6:28 AM EDT Narrative Resulting Agency Comment Spec In Lab Claire DURHAM HEMATOLOGY ORDERAB LES Performing Organization Address City/[facility]/ZIP Co de Phone Number [facility] [address] * (ABNORMAL) Basic Metabolic Panel (non-fasting) (08/24/2022 6:03 AM EDT) Glucose 104 65 - 199 mg/dL [facility] Comment:Diabetes: >=200 mg/d L plus symptoms Blood Urea Nitrogen 22(H) 10 - 20 mg/dL [facility] Creatinine 1.33 0.80 - 1.50 mg/dL [facility] Sodium 137 135 - 145 mmol/L [facility] Potassium 4.1 3.5 - 5.0 mmol/L [facility] Comment: Please note: ??Patients with WBC >100,000 may have falsely elevated Potassium levels. ??For accurate Potassium quantification in these patients send serum separator tube (gold top) for subsequent determinations. ??Contact the Clinical Chemistry Laboratory if there are any questions. Chloride 103 98 - 107 mmol/L [facility] Carbon Dioxide 21(L) 22 - 31 mmol/L [facility] Anion Gap 13 5 - 15 mmol/L [facility] Calcium 9.1 8.5 - 10.5 mg/dL [facility] Est Glomerular Filtration Rate 66 >=60 mL/min/1. 73 m?? [facility] Comment: This patient's estimated [...] and symptoms in addition to eGFR. Blood 08/24/2022 6:03 AM EDT 08/24/2022 6:28 AM EDT Narrative Resulting Agency Comment Spec In Lab Rhoda Jimenez MD CHEMISTRY ORDERABLES [facility] [place] [address] * (ABNORMAL) Differential, Automated (08/23/2022 6:44 AM EDT) Neutrophil % 78.6 % [facility] Neutrophil Absolute 15.37(H) 1.70 - 6.10 x10(3)/mc L [facility] Lymph % 15.5 % [facility] Lymphocytes Abs 3.0 0.9 - 3.2 x10(3)/mc L [facility] Monocyte % 5.0 % [facility] Monocyte Abs 1.0(H) 0.3 - 0.9 x10(3)/mc L [facility] Eos % 0.1 % [facility] Eosinophils Abs 0.0 0.0 - 0.4 x10(3)/mc L [facility] Basophil % 0.3 % [facility] Baso Absolute 0.0 0.0 - 0.1 x10(3)/mc L [facility] Immature Gran % 0.50 % [facility] Comment: Immature granulocytes(IG's)percentage and absolute count will include metamyelocytes, myelocytes, and promyelocytes. Blood smears from CBCs yielding IG's will be scanned manually for concordance. If this scan disagrees with the automated IG or if promyelocytes are noted, a manual differential will be performed. Immature Gran Absolute 0.10(H) 0.00 - 0.04 x10(3)/ L [facility] Blood 08/23/2022 6:44 AM EDT 08/23/2022 6:51 AM EDT Narrative Resulting Agency Comment Spec In Lab Claire DURHAM HEMATOLOGY ORDERAB LES [facility] [place] [address] * (ABNORMAL) Hemogram (08/23/2022 6:44 AM EDT) White Blood Cell 19.5(H) 4.0 - 9.5 x10(3)/mc L [facility] Red Blood Cell 5.92(H) 4.58 - 5.54 x10(6)/mc L [facility] Hemoglobin 17.6(H) 13.7 - 16.5 g/dL [facility] Hematocrit 51.3(H) 40.5 - 48.5 % [facility] Mean Cell Volume 86.7 82.9 - 93.1 fL [facility] Mean Cell Hemoglobin 29.7 27.5 - 32.1 pg [facility] Mean Cell Hemoglobin Concentration 34.3 32.0 - 35.7 g/dL [facility] Platelet 288 145 - 357 x10(3)/mc L [facility] RDW Standard Deviation 40.1 36.0 - 45.0 fL [facility] RDW coefficient of variation 12.8 11.4 - 13.8 % [facility] Mean Platelet Volume 9.3 7.6 - 12.[address] [facility] NRBC% auto 0.0 % [facility] NRBC Absolute 0.000 0.000 - 0.000 x10(3)/mc L [facility] Blood 08/23/2022 6:44 AM EDT 08/23/2022 6:51 AM EDT Narrative Resulting Agency Comment Spec In Lab Claire DURHAM HEMATOLOGY ORDERAB LES Performing Organization Address [facility] Co de Phone Number [facility] [place] [address] * CRP, acute inflammation (08/23/2022 6:44 AM EDT) C-Reactive Protein 3.6 <=4.9 mg/L [facility] Blood 08/23/2022 6:44 AM EDT 08/23/2022 6:51 AM EDT Narrative Resulting Agency Comment Spec In Lab Rhoda Jimenez MD CHEMISTRY ORDERABLES Performing Organization Address [facility] Co de Phone Number [facility] [place] [address] * (ABNORMAL) Sedimentation rate (08/23/2022 6:44 AM EDT) Sedimentation Rate Automated 36(H) 2 - 28 mm/hr [facility] Comment: Effective February 02, 2019 new capillary photometric technology has resulted in a change in reference ranges. It is recommended that each ESR result be reviewed with its own age appropriate reference range. Blood 08/23/2022 6:44 AM EDT 08/23/2022 6:51 AM EDT Narrative Resulting Agency Comment Spec In Lab Rhoda Jimenez MD HEMATOLOGY ORDERABLE S Performing Organization Address [facility]/ZIP Co de Phone Number [facility] [address] * (ABNORMAL) Basic Metabolic Panel (non-fasting) (08/23/2022 6:44 AM EDT) Glucose 125 65 - 199 mg/dL [facility] Comment:Diabetes: >=200 mg/d L plus symptoms Blood Urea Nitrogen 21(H) 10 - 20 mg/dL [facility] Creatinine 1.30 0.80 - 1.50 mg/dL [facility] Sodium 137 135 - 145 mmol/L [facility] Potassium 4.1 3.5 - 5.0 mmol/L [facility] Comment: Please note: ??Patients with WBC >100,000 may have falsely elevated Potassium levels. ??For accurate Potassium quantification in these patients send serum separator tube (gold top) for subsequent determinations. ??Contact the Clinical Chemistry Laboratory if there are any questions. Chloride 104 98 - 107 mmol/L [facility] Carbon Dioxide 21(L) 22 - 31 mmol/L [facility] Anion Gap 12 5 - 15 mmol/L [facility] Calcium 9.3 8.5 - 10.5 mg/dL [facility] Est Glomerular Filtration Rate 67 >=60 mL/min/1. 73 m?? [facility] Comment: This patient's estimated [...] and symptoms in addition to eGFR. Blood 08/23/2022 6:44 AM EDT 08/23/2022 6:51 AM EDT Narrative Resulting Agency Comment Spec In Lab Rhoda Jimenez MD CHEMISTRY ORDERABLES Performing Organization Address [facility]/[place] [address] * (ABNORMAL) Differential, Automated (08/22/2022 8:44 AM EDT) Neutrophil % 86.2 % [facility] Neutrophil Absolute 18.78(H) 1.70 - 6.10 x10(3)/mc L [facility] Lymph % 11.2 % [facility] Lymphocytes Abs 2.4 0.9 - 3.2 x10(3)/ L [facility] Monocyte % 1.8 % [facility] Monocyte Abs 0.4 0.3 - 0.9 x10(3)/[facility] Eos % 0.0 % [facility] Eosinophils Abs 0.0 0.0 - 0.4 x10(3)/[facility] Basophil % 0.2 % [facility] Baso Absolute 0.0 0.0 - 0.1 x10(3)/[facility] Immature Gran % 0.60 % [facility] Comment: Immature granulocytes(IG's)percentage and absolute count will include metamyelocytes, myelocytes, and promyelocytes. Blood smears from CBCs yielding IG's will be scanned manually for concordance. If this scan disagrees with the automated IG or if promyelocytes are noted, a manual differential will be performed. Immature Gran Absolute 0.13(H) 0.00 - 0.04 x10(3)/ L [facility] Blood 08/22/2022 8:44 AM EDT 08/22/2022 8:56 AM EDT Narrative Resulting Agency Comment Spec In Lab Claire DURHAM [place] [address] * (ABNORMAL) Hemogram (08/22/2022 8:44 AM EDT) White Blood Cell 21.8(H) 4.0 - 9.5 x10(3)/ L [facility] Red Blood Cell 5.94(H) 4.58 - 5.54 x10(6)/mc L [facility] Hemoglobin 17.4(H) 13.7 - 16.5 g/dL [facility] Hematocrit 51.4(H) 40.5 - 48.5 % [facility] Mean Cell Volume 86.5 82.9 - 93.1 fL [facility] Mean Cell Hemoglobin 29.3 27.5 - 32.1 pg [facility] Mean Cell Hemoglobin Concentration 33.9 32.0 - 35.7 g/dL [facility] Platelet 300 145 - 357 x10(3)/mc L [facility] RDW Standard Deviation 39.9 36.0 - 45.0 fL [facility] RDW coefficient of variation 12.7 11.4 - 13.8 % [facility] Mean Platelet Volume 9.4 7.6 - 12.9 fL [facility] NRBC% auto 0.0 % [facility] NRBC Absolute 0.000 0.000 - 0.000 x10(3)/ L [facility] Blood 08/22/2022 8:44 AM EDT 08/22/2022 8:56 AM EDT Narrative Resulting Agency Comment Spec In Lab Claire DURHAM HEMATOLOGY ORDERAB LES [facility] [place] [address] * (ABNORMAL) Basic Metabolic Panel (non-fasting) (08/22/2022 8:44 AM EDT) Glucose 155 65 - 199 mg/dL [facility] Comment:Diabetes: >=200 mg/d L plus symptoms Blood Urea Nitrogen 20 10 - 20 mg/dL [facility] Creatinine 1.21 0.80 - 1.50 mg/dL [facility] Sodium 136 135 - 145 mmol/L [facility] Potassium 4.0 3.5 - 5.0 mmol/L [facility] Comment: Please note: ??Patients with WBC >100,000 may have falsely elevated Potassium levels. ??For accurate Potassium quantification in these patients send serum separator tube (gold top) for subsequent determinations. ??Contact the Clinical Chemistry Laboratory if there are any questions. Chloride 101 98 - 107 mmol/L [facility] Carbon Dioxide 20(L) 22 - 31 mmol/L [facility] Anion Gap 15 5 - 15 mmol/L [facility] Calcium 9.8 8.5 - 10.5 mg/dL [facility] Est Glomerular Filtration Rate 73 >=60 mL/min/1. 73 m?? [facility] Comment: This patient's estimated [...] and symptoms in addition to eGFR. Blood 08/22/2022 8:44 AM EDT 08/22/2022 8:56 AM EDT Narrative Resulting Agency Comment Spec In Lab Rhoda Jimenez MD CHEMISTRY ORDERABLES [facility] [place] [address] * Phosphorus (08/22/2022 8:44 AM EDT) Phosphorus 3.3 2.5 - 4.5 mg/dL [facility] Blood 08/22/2022 8:44 AM EDT 08/22/2022 8:56 AM EDT Narrative Resulting Agency Comment Spec In Lab Rhoda Jimenez MD CHEMISTRY ORDERABLES [facility] [address] * Magnesium (08/22/2022 8:44 AM EDT) Magnesium 0.91 0.69 - 1.07 mmol/L [facility] Blood 08/22/2022 8:44 AM EDT 08/22/2022 8:56 AM EDT Narrative Resulting Agency Comment Spec In Lab Rhoda Jimenez MD CHEMISTRY ORDERABLES Performing Organization Address City/[facility]/ZIP Co de Phone Number [facility] [address] * CHEMICAL TEST ENGINEER Shunt Culture (08/21/2022 7:14 PM EDT) Central Nervous System Shunt Culture No growth at 10 days. [facility] Gram Stain Cytocentrifuge Gram Stain performed Neutrophils seen No microorganisms seen. [facility] Cerebrospinal Shunt Fluid 08/21/2022 7:14 PM EDT 08/21/2022 7:16 PM EDT Narrative Resulting Agency Comment Spec In Lab Richard Valles MD MICROBIOLOGY - GENER AL ORDERABLES Performing Organization Address [facility] Co de Phone Number [facility] [address] * CSF Cell Count (08/21/2022 6:57 PM EDT) Tube # counted 1 [facility] AUTO NUC CSF CT 1 0 - 5 /mcl [facility] Comment: If Nucleated CSF CT [...] correlated with clinical condition. RBC CSF CT 52 /mcl [facility] Cerebrospinal Fluid 08/22/19 6:57 PM EDT 08/21/2022 7:10 PM EDT Narrative Resulting Agency Comment Spec In Lab Richard Valles MD BODY FLUIDS AND STOO LS ORDERABLES Performing Organization Address [facility] Co de Phone Number [facility] [place] [address] * CSF DESC 1 (08/21/2022 6:57 PM EDT) Tube Num CSF #1 1 [facility] Color, CSF Colorless Colorless [facility] Appearance, CSF Clear Clear [facility] Total Vol, CSF 2.3 mL [facility] Cerebrospinal Fluid 08/22/19 6:57 PM EDT 08/21/2022 7:10 PM EDT Narrative Resulting Agency Comment Spec In Lab Richard Valles MD BODY FLUIDS AND STOO LS ORDERABLES Performing Organization Address City/[facility]/ZIP Co de Phone Number [facility] [place] [address] * Glucose Level CSF (08/21/2022 6:57 PM EDT) Glucose, CSF 80 mg/dL [facility] Comment:CSF at equilibrium e quals approximately 60-80% of plasma glucose. Cerebrospinal Fluid 08/22/19 6:57 PM EDT 08/21/2022 7:10 PM EDT Narrative Resulting Agency Comment Spec In Lab Rhoda Jimenez MD BODY FLUIDS AND STOO LS ORDERABLES Performing Organization Address [facility]/ZIP Co de Phone Number [facility] [place] [address] * Protein Level CSF (08/21/2022 6:57 PM EDT) Protein, CSF 30 15 - 45 mg/dL [facility] Xanthochromia Neg [facility] Cerebrospinal Fluid 08/22/19 6:57 PM EDT 08/21/2022 7:10 PM EDT Narrative Resulting Agency Comment Spec In Lab Rhoda Jimenez MD BODY FLUIDS AND STOO LS ORDERABLES Performing Organization Address City/[facility]/ZIP Co de Phone Number [facility] [place] [address] * (ABNORMAL) CRP, acute inflammation (08/21/2022 6:14 PM EDT) C-Reactive Protein 8.2(H) <=4.9 mg/L [facility] Blood 08/21/2022 6:14 PM EDT 08/21/2022 6:21 PM EDT Narrative Resulting Agency Comment Spec In Lab Rhoda Jimenez MD CHEMISTRY ORDERABLES Performing Organization Address City/[facility]/ZIP Co de Phone Number [facility] [place] [address] * (ABNORMAL) Sedimentation rate (08/21/2022 6:14 PM EDT) Sedimentation Rate Automated 46(H) 2 - 28 mm/hr [facility] Comment: Effective February 02, 2019 new capillary photometric technology has resulted in a change in reference ranges. It is recommended that each ESR result be reviewed with its own age appropriate reference range. Blood 08/21/2022 6:14 PM EDT 08/21/2022 6:21 PM EDT Narrative Resulting Agency Comment Spec In Lab Rhoda Jimenez MD HEMATOLOGY ORDERABLE S Performing Organization Address [facility] Co de Phone Number [facility] [place] [address] documented in this encounter Visit Diagnoses Diagnosis Headache- Primary Other hydrocephalus Persistent headaches Headache Congenital hydrocephalus documented in this encounter Admitting Diagnoses Diagnosis Headache documented in this encounter Administered Medications Inactive Administered Medications - up to 3 most recent administrations Medication Order MAR Action Action Date Dose Rate Site acetaminophen (Tylenol) (32.02 mg/mL) oral liquid 1,000 mg 1,000 mg, Oral, EVERY 6 HOURS PRN, Starting on Sandra 08/21/22 at 1752, Until 08/25/22 at 1617, Pain, mild pain (1-3), Maximum dose of acetaminophen is 4,000 mg from all sources in 24 hours. When ordered for pain, acetaminophen should be given even when other ordered pain medications are indicated. , Routine acetaminophen (Tylenol) suppository 975 mg 975 mg, Rectal, EVERY 6 HOURS PRN, Starting on Sandra 08/21/22 at 1752, Until 08/25/22 at 1617, Pain, mild pain (1-3), Maximum dose of acetaminophen is 4,000 mg from all sources in 24 hours. When ordered for pain, acetaminophen should be given even when other ordered pain medications are indicated. , Routine acetaminophen (Tylenol) tablet 1,000 mg 1,000 mg, Oral, EVERY 6 HOURS PRN, Starting on Thu08/21/22 at 1752, Until Thu08/25/22 at 1617, Pain, mild pain (1-3), Maximum dose of acetaminophen is 4,000 mg from all sources in 24 hours. When ordered for pain, acetaminophen should be given even when other ordered pain medications are indicated. , Routine ARIPiprazole (Abilify) tablet 10 mg 10 mg, Oral, DAILY, First dose on Thu08/21/22 at 1845, Until Discontinued, Routine Given 08/25/2022 8:12 AM EDT 10 mg Given 08/24/2022 8:41 AM EDT 10 mg Given 08/23/2022 8:22 AM EDT 10 mg atorvastatin (Lipitor) tablet 10 mg 10 mg, Oral, DAILY, First dose on Thu08/21/22 at 1845, Until Discontinued, Routine Given 08/25/2022 8:06 AM EDT 10 mg Given 08/24/2022 8:41 AM EDT 10 mg Given 08/23/2022 8:22 AM EDT 10 mg benztropine (Cogentin) tablet 0.5 mg 0.5 mg, Oral, NIGHTLY, First dose on Thu08/21/22 at 2100, Until Discontinued, Routine Given 08/24/2022 9:00 PM EDT 0.5 mg Given 08/23/2022 8:47 PM EDT 0.5 mg Given 08/22/2022 8:15 PM EDT 0.5 mg diphenhydrAMINE (Benadryl) (50 mg/mL) injection 25 mg 25 mg, Intravenous, ONCE, 1 dose, On Thu08/22/22 at 1045, Administer in conjunction with NS bolus, compazine, and magnesium, Routine Given 08/22/2022 11:02 AM EDT 25 mg docusate sodium (Colace) capsule 100 mg 100 mg, Oral, 2 TIMES DAILY, First dose on Thu08/21/22 at 2100, Until Discontinued, Routine Given 08/24/2022 8:42 AM EDT 100 mg hydrOXYzine (Atarax) tablet 25 mg 25 mg, Oral, DAILY, First dose on Thu08/21/22 at 1845, Until Discontinued, Routine Given 08/25/2022 8:06 AM EDT 25 mg Given 08/24/2022 8:41 AM EDT 25 mg Given 08/23/2022 8:22 AM EDT 25 mg hydrOXYzine (Atarax) tablet 25 mg 25 mg, Oral, ONCE PRN, 1 dose, Starting on Thu08/22/22 at 0950, Until Thu08/25/22 at 1617, headache not relieved by migraine cocktail, Routine levothyroxine (Synthroid) tablet 25 mcg 25 mcg, Oral, DAILY, First dose on Thu08/21/22 at 1845, Until Discontinued, Routine Given 08/25/2022 8:06 AM EDT 25 mcg Given 08/24/2022 8:41 AM EDT 25 mcg Given 08/23/2022 8:22 AM EDT 25 mcg lurasidone (Latuda) tablet 40 mg 40 mg, Oral, EVERY EVENING, First dose on Thu08/21/22 at 1845, Until Discontinued, Administer with a meal containing at least 350 calories , Routine Given 08/24/2022 5:34 PM EDT 40 mg Given 08/23/2022 6:00 PM EDT 40 mg Given 08/22/2022 5:23 PM EDT 40 mg magnesium sulfate 2 g in sterile water 50 mL infusion 2 g, Intravenous, ONCE, 1 dose, On Thu08/22/22 at 1045, Administer over 15 Minutes, Administer in conjunction with NS bolus, benadryl, and compazine New Bag 08/22/2022 11:02 AM EDT 2 g 200 mL /hr metoprolol succinate XL (Toprol-XL) tablet 25 mg 25 mg, Oral, DAILY, First dose on Thu08/21/22 at 1845, Until Discontinued, DO NOT CRUSH OR OPEN, Routine Given 08/25/2022 8:06 AM EDT 25 mg Given 08/24/2022 8:41 AM EDT 25 mg Given 08/23/2022 8:22 AM EDT 25 mg ondansetron (pf) (Zofran) (2 mg/mL) injection 4 mg 4 mg, Intravenous, EVERY 8 HOURS PRN, Starting on Thu08/21/22 at 1752, Until Thu08/25/22 at 1617, Nausea, If multiple antiemetics are ordered, use ondansetron first, prochlorperazine second, and metoclopramide third. PO Preferred. If patient unable to take PO, may give IV if ordered. May repeat times one in 30 minutes if ineffective. Maximum daily dose = 24 mg/24 hours ondansetron (Zofran) tablet 4 mg 4 mg, Oral, EVERY 8 HOURS PRN, Starting on Sandra 08/21/22 at 1752, Until 08/25/22 at 1617, Nausea, Vomiting, If multiple antiemetics are ordered, use ondansetron first, prochlorperazine second, and metoclopramide third. PO Preferred. If patient unable to take PO, may give IV if ordered. May repeat times one in 45 minutes if ineffective. Maximum daily dose = 24 mg/24 hours, Routine pantoprazole EC (Protonix) tablet 40 mg 40 mg, Oral, DAILY, First dose on Sandra 08/21/22 at 1845, Until Discontinued Given 08/25/2022 8:05 AM EDT 40 mg Given 08/24/2022 8:41 AM EDT 40 mg Given 08/23/2022 8:22 AM EDT 40 mg prochlorperazine (Compazine) (5 mg/mL) injection 10 mg 10 mg, Intravenous, ONCE, 1 dose, On Thu08/22/22 at 1045, Administer in conjunction with NS bolus, benadryl, and magnesium, Routine Given 08/22/2022 11:02 AM EDT 10 mg sertraline (Zoloft) tablet 100 mg 100 mg, Oral, DAILY, First dose on Sandra 08/21/22 at 1845, Until Discontinued, Routine Given 08/25/2022 8:06 AM EDT 100 mg Given 08/24/2022 8:41 AM EDT 100 mg Given 08/23/2022 8:22 AM EDT 100 mg sodium chloride 0.9 % (flush) (BD PosiFlush Normal Saline 0.9) flush 5 mL 5 mL, Intravenous, 2 TIMES DAILY, First dose on Sandra 08/21/22 at 2100, Until Discontinued, Recovery (Recovery-Hospital Unit), Routine Given 08/25/2022 9:00 AM EDT 5 mLs Given 08/24/2022 9:00 PM EDT 5 mLs Given 08/24/2022 8:42 AM EDT 5 mLs sodium chloride 0.9% 500 mL IV bolus Intravenous, ONCE, 1 dose, On Thu08/22/22 at 1045, Administer in conjunction with compazine, benadryl, and magnesium New Bag 08/22/2022 11:02 AM EDT topiramate (Topamax) tablet 25 mg 25 mg, Oral, DAILY, First dose on Sandra 08/21/22 at 1845, Until Discontinued, DO NOT SPLIT, CRUSH OR OPEN, Routine Given 08/25/2022 8:05 AM EDT 25 mg Given 08/24/2022 8:41 AM EDT 25 mg Given 08/23/2022 8:22 AM EDT 25 mg documented in this encounter Active and Recently Administered Medications Times are shown in EDT. Scheduled Medication Order 08/23/2022 08/24/2022 08/25/2022 ARIPiprazole (Abilify) tablet 10 mg 10 mg, Oral, DAILY, First dose on Sandra 08/21/22 at 1845, Until Discontinued, Routine 0822 (Given - Provider: El Denney RN) 0841 (Given - Provider: El Denney RN) 0812 (Given - Provider: Meghan Bartlett RN) atorvastatin (Lipitor) tablet 10 mg 10 mg, Oral, DAILY, First dose on Sandra 08/21/22 at 1845, Until Discontinued, Routine 0822 (Given - Provider: El Denney RN) 0841 (Given - Provider: El Denney RN) 0806 (Given - Provider: Meghan Bartlett RN) benztropine (Cogentin) tablet 0.5 mg 0.5 mg, Oral, NIGHTLY, First dose on Sandra 08/21/22 at 2100, Until Discontinued, Routine 2046 (Given - Provider: Raman Hines RN) 2099 (Given - Provider: Rhona Navarro RN) docusate sodium (Colace) capsule 100 mg 100 mg, Oral, 2 TIMES DAILY, First dose on Sandra 08/21/22 at 2100, Until Discontinued, Routine 0900 (Not Given - Provider: El Denney RN - Reason: Patient/family refused)2099 (Not Given - Provider: Raman Hines RN - Reason: Patient/family refused) 0842 (Given - Provider: El Denney RN)2100 (Not Given - Provider: Rhona Navarro RN - Reason: Patient/family refused) 0900 (Not Given - Provider: Meghan Bartlett RN - Reason: Patient/family refused) hydrOXYzine (Atarax) tablet 25 mg 25 mg, Oral, DAILY, First dose on Sandra 08/21/22 at 1845, Until Discontinued, Routine 0822 (Given - Provider: El Denney RN) 0841 (Given - Provider: El Denney RN) 0806 (Given - Provider: Meghan Bartlett RN) levothyroxine (Synthroid) tablet 25 mcg 25 mcg, Oral, DAILY, First dose on Sandra 08/21/22 at 1845, Until Discontinued, Routine 0822 (Given - Provider: El Denney RN) 0841 (Given - Provider: El Denney RN) 0806 (Given - Provider: Meghan Bartlett RN) lurasidone (Latuda) tablet 40 mg 40 mg, Oral, EVERY EVENING, First dose on Sandra 08/21/22 at 1845, Until Discontinued, Administer with a meal containing at least 350 calories , Routine 1800 (Given - Provider: El Denney RN) 1734 (Given - Provider: El Denney RN) metoprolol succinate XL (Toprol-XL) tablet 25 mg 25 mg, Oral, DAILY, First dose on Sandra 08/21/22 at 1845, Until Discontinued, DO NOT CRUSH OR OPEN, Routine 0822 (Given - Provider: El Denney RN) 0841 (Given - Provider: El Denney RN) 0806 (Given - Provider: Meghan Bartlett RN) pantoprazole EC (Protonix) tablet 40 mg 40 mg, Oral, DAILY, First dose on Sandra 08/21/22 at 1845, Until Discontinued 0822 (Given - Provider: El Denney RN) 0841 (Given - Provider: El Denney RN) 0805 (Given - Provider: Meghan Bartlett RN) senna-docusate (Pericolace) 8.6-50 mg per tablet 2 tablet 2 tablet, Oral, 2 TIMES DAILY, First dose on Sandra 08/21/22 at 2100, Until Discontinued, Hold for loose stool. , Routine 0900 (Not Given - Provider: El Denney RN - Reason: Patient/family refused)2099 (Not Given - Provider: Raman Hines RN - Reason: Patient/family refused) 0842 (Not Given - Provider: El Denney RN - Reason: Patient/family refused)2099 (Not Given - Provider: Rhona Navarro RN - Reason: Patient/family refused) 0900 (Hold - Provider: Meghan Bartlett RN - Reason: Patient/family refused) sertraline (Zoloft) tablet 100 mg 100 mg, Oral, DAILY, First dose on Sandra 08/21/22 at 1845, Until Discontinued, Routine 0822 (Given - Provider: El Denney RN) 0841 (Given - Provider: El Denney RN) 0806 (Given - Provider: Meghan Bartlett RN) sodium chloride 0.9 % (flush) (BD PosiFlush Normal Saline 0.9) flush 5 mL 5 mL, Intravenous, 2 TIMES DAILY, First dose on Sandra 08/21/22 at 2100, Until Discontinued, Recovery (Recovery-Hospital Unit), Routine 08 (Given - Provider: El Denney RN)2046 (Given - Provider: Raman Hines RN) 0842 (Given - Provider: El Denney RN)2099 (Given - Provider: Rhona Navarro RN) 0900 (Given - Provider: Meghan Bartlett RN) topiramate (Topamax) tablet 25 mg 25 mg, Oral, DAILY, First dose on Sandra 08/21/22 at 1845, Until Discontinued, DO NOT SPLIT, CRUSH OR OPEN, Routine 0822 (Given - Provider: El Denney RN) 0841 (Given - Provider: El Denney RN) 0805 (Given - Provider: Meghan Bartlett RN) PRN Medication Order 08/23/2022 08/24/2022 08/25/2022 acetaminophen (Tylenol) (32.02 mg/mL) oral liquid 1,000 mg(Linked Group 1) 1,000 mg, Oral, EVERY 6 HOURS PRN, Starting on Sandra 08/21/22 at 1752, Until Thu08/25/22 at 1617, Pain, mild pain (1-3), Maximum dose of acetaminophen is 4,000 mg from all sources in 24 hours. When ordered for pain, acetaminophen should be given even when other ordered pain medications are indicated. , Routine acetaminophen (Tylenol) suppository 975 mg(Linked Group 1) 975 mg, Rectal, EVERY 6 HOURS PRN, Starting on Sandra 08/21/22 at 1752, Until Thu08/25/22 at 1617, Pain, mild pain (1-3), Maximum dose of acetaminophen is 4,000 mg from all sources in 24 hours. When ordered for pain, acetaminophen should be given even when other ordered pain medications are indicated. , Routine acetaminophen (Tylenol) tablet 1,000 mg(Linked Group 1) 1,000 mg, Oral, EVERY 6 HOURS PRN, Starting on Sandra 08/21/22 at 1752, Until Thu08/25/22 at 1617, Pain, mild pain (1-3), Maximum dose of acetaminophen is 4,000 mg from all sources in 24 hours. When ordered for pain, acetaminophen should be given even when other ordered pain medications are indicated. , Routine bisacodyL (Dulcolax) suppository 10 mg 10 mg, Rectal, DAILY PRN, Starting on Sandra 08/21/22 at 1752, Until Thu08/25/22 at 1617, Constipation, Administer if needed per patient's routine or if no bowel movement within 48 hours to achieve: (1) One bowel movement every 48 hours, AND (2) Without straining. If multiple PRN bowel medications ordered, start with magnesium hydroxide, then bisacodyL. Multiple medications may be given concomitantly for constipation., Routine hydrALAZINE (Apresoline) (20 mg/mL) injection 10 mg 10 mg, Intravenous, EVERY 1 HOUR PRN, Starting on Sandra 08/21/22 at 1752, Until Thu08/25/22 at 1617, High Blood Pressure, Target systolic blood pressure (SBP) less than 160 mmHg. Administer 10 mg IV. May repeat once in 15 minutes if SBP greater than target BP (caution if HR greater than 90). Use if labetaloL ineffective after 1 hour., Routine hydrOXYzine (Atarax) tablet 25 mg 25 mg, Oral, ONCE PRN, 1 dose, Starting on Thu08/22/22 at 0950, Until Thu08/25/22 at 1617, headache not relieved by migraine cocktail, Routine labetaloL (Normodyne) (5 mg/mL) injection solution 10-20 mg 10-20 mg, Intravenous, EVERY 1 HOUR PRN, Starting on Sandra 08/21/22 at 1752, Until Thu08/25/22 at 1617, High Blood Pressure, Target systolic blood pressure (SBP) less than 160 mmHg. Administer 10 mg over 2 minutes. May repeat every 15 minutes if SBP remains above goal. If inadequate effect with second 10 mg dose, then increase dose to 20 mg for subsequent dosing every 15 minutes. Dose not to exceed 300 mg per day. Hold if pulse is less than 50 beats per minute., Routine lidocaine (Xylocaine) 1% (10 mg/mL) injection 3 mg 3 mg (0.3 mL), Subcutaneous, ONCE PRN, 1 dose, Starting on Sandra 08/21/22 at 1752, Until Thu08/25/22 at 1617, for discomfort with PIV insertion, Recovery (Recovery-Hospital Unit), Routine ondansetron (pf) (Zofran) (2 mg/mL) injection 4 mg(Linked Group 2) 4 mg, Intravenous, EVERY 8 HOURS PRN, Starting on Sandra 08/21/22 at 1752, Until Thu08/25/22 at 1617, Nausea, If multiple antiemetics are ordered, use ondansetron first, prochlorperazine second, and metoclopramide third. PO Preferred. If patient unable to take PO, may give IV if ordered. May repeat times one in 30 minutes if ineffective. Maximum daily dose = 24 mg/24 hours ondansetron (Zofran) tablet 4 mg(Linked Group 2) 4 mg, Oral, EVERY 8 HOURS PRN, Starting on Sandra 08/21/22 at 1752, Until Thu08/25/22 at 1617, Nausea, Vomiting, If multiple antiemetics are ordered, use ondansetron first, prochlorperazine second, and metoclopramide third. PO Preferred. If patient unable to take PO, may give IV if ordered. May repeat times one in 45 minutes if ineffective. Maximum daily dose = 24 mg/24 hours, Routine polyethylene glycoL (Miralax) packet 17 g 17 g, Oral, DAILY PRN, Starting on Sandra 08/21/22 at 1752, Until Thu08/25/22 at 1617, Constipation, Administer if no bowel movement within 48 hours to achieve: (1) One bowel movement at least every 48 hours, AND (2) without straining. If multiple PRN bowel medications ordered, start with polyethylene glycoL, then lactulose, then oral bisacodyL, then bisacodyL suppository, then magnesium citrate, then tap water enema. Multiple medications may be given concomitantly for constipation., Routine sodium chloride 0.9 % (flush) (BD PosiFlush Normal Saline 0.9) flush 5-20 mL 5-20 mL, Intravenous, EVERY 1 MIN PRN, Starting on Sandra 08/21/22 at 1752, Until Thu08/25/22 at 1617, flush, Flush pertains to all indwelling lines. Flush per protocol found in the job aid using the link provided on this medication record., Recovery (Recovery-Hospital Unit), Routine Linked Groups Order Group 1: acetaminophen (Tylenol) (32.02 mg/mL) oral liquid 1,000 mgJump to med 1,000 mg, Oral, EVERY 6 HOURS PRN, Starting on Sandra 08/21/22 at 1752, Until Thu08/25/22 at 1617, Pain, mild pain (1-3), Maximum dose of acetaminophen is 4,000 mg from all sources in 24 hours. When ordered for pain, acetaminophen should be given even when other ordered pain medications are indicated. , Routine Or acetaminophen (Tylenol) tablet 1,000 mgJump to med 1,000 mg, Oral, EVERY 6 HOURS PRN, Starting on Sandra 08/21/22 at 1752, Until Thu08/25/22 at 1617, Pain, mild pain (1-3), Maximum dose of acetaminophen is 4,000 mg from all sources in 24 hours. When ordered for pain, acetaminophen should be given even when other ordered pain medications are indicated. , Routine Or acetaminophen (Tylenol) suppository 975 mgJump to med 975 mg, Rectal, EVERY 6 HOURS PRN, Starting on Sandra 08/21/22 at 1752, Until 7/3/23 at 1617, Pain, mild pain (1-3), Maximum dose of acetaminophen is 4,000 mg from all sources in 24 hours. When ordered for pain, acetaminophen should be given even when other ordered pain medications are indicated. , Routine Group 2: ondansetron (Zofran) tablet 4 mgJump to med 4 mg, Oral, EVERY 8 HOURS PRN, Starting on Sandra 08/21/22 at 1752, Until 08/25/22 at 1617, Nausea, Vomiting, If multiple antiemetics are ordered, use ondansetron first, prochlorperazine second, and metoclopramide third. PO Preferred. If patient unable to take PO, may give IV if ordered. May repeat times one in 45 minutes if ineffective. Maximum daily dose = 24 mg/24 hours, Routine Or ondansetron (pf) (Zofran) (2 mg/mL) injection 4 mgJump to med 4 mg, Intravenous, EVERY 8 HOURS PRN, Starting on Sandra 08/21/22 at 1752, Until 08/25/22 at 1617, Nausea, If multiple antiemetics are ordered, use ondansetron first, prochlorperazine second, and metoclopramide third. PO Preferred. If patient unable to take PO, may give IV if ordered. May repeat times one in 30 minutes if ineffective. Maximum daily dose = 24 mg/24 hours documented in this encounter Care Teams Dietary Manager Relationship Specialty Start Date End Date Peter Lebron PA [address] [place] [address] PCP - General Internal Medicine 08/21/22 documented as of this encounter
--- OUTSIDE RECORDS SUMMARY | 2024-02-29 15:48 | XMS_ITS | Encounter Summary ---
Author Organization [facility], Located [facility] [place] [address] Care Team Providers Care Sales Service Coordinator Name Role Phone Ana Maria Gatesh LIZA Primary Care Provider [phone] Reason for Visit * Auth/Cert (Routine) Specialty Diagnoses / Procedures Referred By Contac t Referred To Contact Diagnoses Headache Shunt infection Rhoda Jimenez MD [facility] [place] [address] [facility] Referral ID Status Reason Start Date Expiration Date Visits Re quested Visits Authorized [id number] 1 1 Encounter Details Date Type Department Care Team (Latest Contact Info) Description 08/19/2022 1:41 PM EDT - 08/19/2022 11:59 PM EDT Hospital Encounter XRay at [address] [place] [address] Sonia Escalona APRN [facility] [place] [address] S/P SHAPER SET UP OPERATOR shunt Discharge Disposition: Home Social History [...] as of this encounter Plan of Treatment Scheduled Orders Name Type Priority Associated Diagnoses Orde r Schedule XR Chest PA 1 view w Abdomen Imaging Routine S/P SHAPER SET UP OPERATOR shunt 1 Occurrences starting 08/19/2022 until 08/19/2022 XR Abdomen Flat & Upright Imaging Routine S/P SHAPER SET UP OPERATOR shunt 1 Occurrences starting 08/19/2022 until 08/19/2022 documented as of this encounter Procedures Procedure Name Priority Date/Time Associated Diagnosis Comments XR CHEST PA AND LATERAL Routine 08/19/2022 1:59 PM EDT S/P SHAPER SET UP OPERATOR shunt documented in this encounter Results * XR Chest PA & Lateral (Generic) [...] who have questions please contact the health medical care administrator that requested your imaging first. ? Electronically signed by: Chapin Lee MD, [facility] ??([phone]), at 08/20/2022 8:24 AM Narrative 08/20/2022 8:24 AM EDT EXAMINATION: XR [...] patients who have questions please contactthe health medical care administrator that requested your imaging first. Electronically signed by: Chapin Lee MD, [facility]([phone]), at 08/20/2022 8:24 AM Sonia Escalona APRN IMG DX ORDERABLES documented in this encounter Visit Diagnoses Diagnosis S/P SHAPER SET UP OPERATOR shunt Presence of cerebrospinal fluid drainage device documented in this encounter Care Teams Sales Service Coordinator Relationship Specialty Start Date End Date Irma Gates APRN [facility] [place] [address] PCP - General Family Medicine 09/20/20 08/20/22 documented as of this encounter
--- OUTSIDE RECORDS SUMMARY | 2024-02-29 15:48 | XMS_ITS | Encounter Summary ---
Author Organization [facility] Address [facility] [place] [address] Care Team Providers Care Bonsai Culturist Name Role Phone Pteer Lebron Primary Care Provider [phone] Reason for Visit * Reason Onset Date Comments Appointment 08/20/2022 Encounter Details Date Type Department Care Team (Late st Contact Info) Description 08/20/2022 [place] [id number] Sonia Escalona APRN [facility] [place] [place] [address] Appointment Social History Tobacco Use Types Packs/Day Years Used Date Smoking Tobacco: Never Smokeless Tobacco: Never Alcohol Use Standard Drinks/Week Comments No 0 (1 standard drink = 0.6 oz pur e alcohol) [facility] Inpatient Questions Answer Date Recorded Does [...] encounter Miscellaneous Notes * Telephone Encounter - KuhnBell oconnor Zelda - 08/20/2022 10:30 AM EDT Called pt to let him know to get labs at [facility] Faxed lab orders to [phone] Scheduled TOV with Iqra 08/22 at 8:20 Chapin Costa - 08/19/22 Sonia Escalona APRN Sent: ThuAugust 19, 2022 5:58 PM To: P [facility] Neurosurgery Food Mixer Assembler Follow-up and Dispositions Check-out Note: Please fax labs (WBC, SED Rate) to [facility] Evre should get labwork done on to have completed for TOV visit on Thursday. documented in this encounter Plan of Treatment Not on file documented as of this encounter Visit Diagnoses Not on filedocumented in this encounter Care Teams Bonsai Culturist Relationship Specialty Start Date End Date Peter Lebron PA [address] [place] [address] PCP - General Internal Medicine 08/21/22 documented as of this encounter
--- OUTSIDE RECORDS SUMMARY | 2024-02-29 15:49 | XMS_ITS | Encounter Summary ---
[place] [address] Care Team Providers Care Turn Machine Operator Name Role Phone JoséIrma vicente LIZA Primary Care Provider [phone] Reason for Visit * Auth/Cert (Routine) Specialty Diagnoses / Procedures Referred By Mansi t Referred To Contact Diagnoses Congenital hydrocephalus Chronic intractable headache, unspecified headache type Rhoda Jimenez MD [facility] [place] [address] [facility] Referral ID Status Reason Start Date Expiration Date Visits Re quested Visits Authorized [id number] 1 1 Encounter Details Date Type Department Care Team (Late st Contact Info) Description 05/24/2022 8:36 AM EDT Anesthesia [place] [address] Kimberly Cruz MD Teveris, Victoria G, MD Anesthesia Record Procedure Summary Procedure Name Responsible Anesthesiologist Anesthesia Start Time Anesthesia Stop Time EXPLORATION VENTRICULO-PERITONEAL SHUNT (WRVU 25.48) (Right: Head) Kimberly Cruz MD 05/24/22 0836 05/24/22 1058 Events Date Time Event Comment 05/24/2022 0802 0836 AN Verify 0836 Start 0836 An Start Data 0842 An Induction 0848 An Intubation 0849 Anesthesia Ready 0938 Procedure Start 1001 Break/Relief In I assumed ca re for Break Relief before which we: 1. Identified the patient 2. Identified the responsible provider(s) 3. Reviewed the pertinent medical history 4. Discussed the surgical plan and course 5. Reviewed intra-op anesthesia management and issues during anesthesia 6. Set expectations for the relief (and/or post-procedure) period 7. Allowed opportunity for questions and acknowledgement of understanding Rhoda Marin MD 1030 Procedure Stop 1049 Extubation/LMA Out 1052 an stop data 1058 Recovery or ICU Handoff Candi ent care was transferred to the destination unit staff after review of the patient's medical history, current anesthetic/surgical status and plan, according to the Provider Handoff Checklist. 1058 Stop Meds Name Total fentaNYL 100 mcg Propofol 370 mg Rocuronium 80 mg Ondansetron 8 mg Dexamethasone 8 mg ceFAZolin 2 g PHENYLephrine INF 1,060 mcg HYDROmorphone 2 mg/mL 0.4 mg Sugammadex 200 mg Sodium Chloride 0.9% 500 mL * Agents Name O2 * Blood No blood administrations on file. Lines, Drains, and Airways Type Details Placement Removal (RETIRED) Peripheral IV Line - Single Lumen 05/23/22; 2042; median cubital vein (antecubital fossa), left; [id number] catheter system; Anatomical Landmarks; 20 gauge; EDWARD Norton; removed per policy/procedure, catheter/device intact; 05/25/22; 1417 05/23/222042 by Cierra Carlos RN 05/25/221416 by Ray De La Garza RN ETT Mask Ventilation: Difficult (3); ETT Type: Cuffed, Oral; ETT Size: 8 mm; Mac Blade: 3; Notes: Asleep, Pre-O2, Cricoid Pressure, Stylette; Attempts: 1; Laryngoscopy Grade: 1; ETT Placement Verified By: Auscultation, Capnometry; Secured at Teeth: 22 cm; Inserted by: Tania LEE; Removal Date: 05/24/22; Removal Time: 1049 05/24/22 0848 by Rhoda Marin MD 05/24/22 1049 by Veronica Sy MD Incision 05/24/22; 0939; Righ t; occipital region; [...] OR Notes * Anesthesia Postprocedure Evaluation - Rhoda Marin MD - 05/24/2022 10:59 AM EDT Department of Anesthesiology Post-procedure Note Patient: Chapin Costa Procedure Summary Date: 05/24/22 Room / Location: [facility] OR [facility] MAIN OR Anesthesia Start: 835 Anesthesia Stop: 8 Procedures: EXPLORATION VENTRICULO-PERITONEAL SHUNT (WRVU 25.48) (Right: Head) MODIFIER, AXIEM, SHUNT (Right) Diagnosis: (SHunt malfunction) Surgeons: Rhoda Jimenez MD Responsible Provider: Kimberly Cruz MD Anesthesia Type: general ASA Status: 3 - Emergent All Anesthesia Providers: Anesthesiologist: Kimberly Cruz MD Historiographer: Rhoda Marin MD; Veronica Sy MD Vitals Value Taken Time BP 153/97 05/24/22 1056 Temp Pulse 107 05/24/22 1058 Resp 19 05/24/22 1058 SpO2 95 % 05/24/22 1058 Pain Level Vitals shown include unvalidated device data. Patient Location: PACU/[facility] Level of Consciousness: Awake and Alert Pain Management: Satisfactory Analgesia PONV: None Cardiovascular Status: At Baseline and Hemodynamically Stable Respiratory Status: Supplemental O2 (NC or FM) Postoperative Fluid Status: Intravascular EUvolemia Possible Anesthetic Complications: NONE apparent at time of evaluation Final Primary Anesthesia Type: General (The anesthetic type performed was the same as planned.) Comments: Rhoda Marin MD * Anesthesia Preprocedure Evaluation - Kimberly Cruz MD - 05/24/2022 7:14 AM EDT Pre-Anesthesia Evaluation for: Chapin Costa a 51 y.o. male. Procedure(s): EXPLORATION VENTRICULO-PERITONEAL SHUNT (WRVU 25.48) MODIFIER, AXIEM, SHUNT Patient Active Problem List Diagnosis Date Noted ??? *Congenital hydrocephalus 05/24/2022 ??? Hydrocephalus 03/08/2020 ??? Seizures 03/23/2019 ??? Cervicalgia 01/22/2017 ??? Headache 01/15/2017 ??? Persistent headaches 01/14/2017 ??? S/P SURGICAL SERVICES COORDINATOR shunt 01/12/2017 Past Medical History: Diagnosis Date [...] 4.06) performed by Shan Rivero MD at [facility] ??? PRO EXTRACTION ERUPTED TOOTH/EXR N/A 10/18/2020 EXTRACTION, ERUPTED TOOTH OR EXPOSED ROOT (WRVU 0.62) performed by Shan Rivero MD at [facility] ??? PRO IMPACT TOOTH REM BONY W/COMP N/A 10/18/2020 SURGICAL EXTRACTIONS, REMOVAL OF IMPACTED TOOTH, COMPLETELY BONY WITH UNUSUAL SURGICAL COMPLICATIONS (WRVU 2.91) performed by Shan Rivero MD at [facility] ??? PRO IMPACT TOOTH REMOV COMP BONY N/A 10/18/2020 SURGICAL EXTRACTIONS, REMOVAL OF IMPACTED TOOTH, COMPLETELY BONY (WRVU 1.93) performed by Shan Rivero MD at [facility] ??? PRO REMOVAL ERUPTED TOOTH WITH ELEVATION OF MUCOPERIOSTEAL FLAP Bilateral 10/18/2020 SURGICAL EXTRACTIONS REQUIRING ELEVATION OF MUCOPERIOSTEAL FLAP AND REMOVAL OF BONE OR SECTION OF TOOTH (WRVU 1.09) performed by Shan Rivero MD at [facility] ??? SHOULDER SURGERY ??? ULNAR TUNNEL [...] Itching ??? Vancomycin Analogues ??? Vancomycin Hcl Medications: MAR and/or home medications have been reviewed. Physical Exam: Preprocedure Vitals Current as of 05/24/22 0714 BP: 153/102 Pulse: 94 Resp: 26 SpO2: 94 Temp: Not recorded Height: 167.6 cm (5' 5.98) (05/23/22) Weight: 88.5 kg (195 lb 1.7 oz) (05/23/22) BMI: 31.5 IBW: 63.8 kg (140 lb 9.2 oz) Last edited 05/24/22 0500 by Airway Assessment: Mallampati: II TM distance: >3 FB Neck ROM: full Full chiu Cardiovascular Assessment: Rhythm: regular Rate: normal Pulmonary Assessment: unlabored breathing Dental Assessment: (+) lower dentures and upper dentures Misc Assessment: IV access: Peripheral line Last Filed Perioperative Cognitive Screening None Anesthesia Plan: ASA 3 emergent general, with a(n) intravenous induction 51M with SURGICAL SERVICES COORDINATOR shunt malfunction presenting for SURGICAL SERVICES COORDINATOR shunt exploration. 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 Several prior shunt malfunctions (most recent in 2020, OSH). Presenting symptoms are worsening headache severity compared to baseline, anorexia, tenderness behind right ear, lethargy andsubjective fevers. Anesthetic records: easy mask, grade 1 view with video laryngoscopy. Nasal intubation with 6.5 cuffed ETT. Plan: GAETT peripheral IV access Region - Other Informed Consent: Anesthetic plan and risks discussed with patient and mother. Plan discussed with resident and attending. Anesthesia Screening documented in this encounter Plan of Treatment Not on file documented as of this encounter Visit Diagnoses Not on filedocumented in this encounter Administered Medications Inactive Administered Medications - up to 3 most recent administrations Medication Order MAR Action Action Date Dose Rate Site ceFAZolin (Ancef) 1 g in dextrose 5% 50 mL infusion Intravenous, PRN, Starting on 05/24/22 at 0859, Until 05/24/22 at 1058, Administer over 30 Minutes, Anesthesia Intra-op Given 05/24/2022 8:59 AM EDT 2 g dexAMETHasone (Decadron) injection Intravenous, PRN, Starting on 05/24/22 at 0845, Until 05/24/22 at 1058, Anesthesia Intra-op, Routine Given 05/24/2022 8:45 AM EDT 8 mg fentaNYL (pf) (50 mcg/mL) multi-dose injection Intravenous, PRN, Starting on 05/24/22 at 0842, Until 05/24/22 at 1058, Anesthesia Intra-op, Routine Given 05/24/2022 9:34 AM EDT 50 mcg Given 05/24/2022 8:42 AM EDT 50 mcg HYDROmorphone (Dilaudid) (2 mg/mL) multi-dose injection solution Intravenous, PRN, Starting on 05/24/22 at 1004, Until 05/24/22 at 1058, Anesthesia Intra-op, Routine Given 05/24/2022 10:34 AM EDT 0.2 mg Given 05/24/2022 10:04 AM EDT 0.2 mg ondansetron (pf) (Zofran) (2 mg/mL) injection Intravenous, PRN, Starting on 05/24/22 at 1022, Until 05/24/22 at 1058, Anesthesia Intra-op, Routine Given 05/24/2022 10:22 AM EDT 8 mg PHENYLephrine (Felipe-Synephrine) (80 mcg/mL) in sodium chloride 0.9% 250 mL infusion Intravenous, CONTINUOUS PRN, Starting on 05/24/22 at 0902, Until 05/24/22 at 1058, Anesthesia Intra-op, Routine Restarted 05/24/2022 9:46 AM EDT 20 mcg/min 15 mL/hr New Bag 05/24/2022 9:02 AM EDT 20 mcg/min 15 mL/hr propofoL (Diprivan) 10 mg/mL bolus injection (Anesthesia) Intravenous, PRN, Starting on 05/24/22 at 0843, Until 05/24/22 at 1058, Anesthesia Intra-op Given 05/24/2022 10:26 AM EDT 30 mg Given 05/24/2022 10:25 AM EDT 30 mg Given 05/24/2022 10:22 AM EDT 40 mg rocuronium (Zemuron) (10 mg/mL) multi-dose injection Intravenous, PRN, Starting on 05/24/22 at 0843, Until 05/24/22 at 1058, Anesthesia Intra-op, Routine Given 05/24/2022 8:43 AM EDT 80 mg sodium chloride 0.9% infusion Intravenous, CONTINUOUS PRN, Starting on 05/24/22 at 0836, Until 05/24/22 at 1058, Anesthesia Intra-op New Bag 05/24/2022 8:36 AM EDT sugammadex (Bridion) 100 mg/mL injection Intravenous, PRN, Starting on 05/24/22 at 1024, Until 05/24/22 at 1058, Anesthesia Intra-op, Routine Given 05/24/2022 10:24 AM EDT 200 mg documented in this encounter Care Teams Turn Machine Operator Relationship Specialty Start Date End Date [place] [address] PCP - General Family Medicine 09/20/20 08/20/22 documented as of this encounter
--- OUTSIDE RECORDS SUMMARY | 2024-02-29 15:49 | XMS_ITS | Encounter Summary ---
[place] [address] Care Team Providers Care Media Theorist And Author Of Name Role Phone YajairaIrma LIZA Primary Care Provider Reason for Referral * Diagnostic Test (Routine) - Closed Specialty Diagnoses / Procedures Referred By Contac t Referred To Contact Radiology Diagnoses Right knee pain, unspecified chronicity Procedures MRI Knee wo Contrast Right (Generic) MRI Knee wwo Contrast Right Ray Andino MD [address] [place] [address] [place] [address] Referral ID Status Reason Start Date Expiration Date V isits Requested Visits Authorized [id number] Closed Specialty Service Requested 03/11/2022 09/09/2023 1 1 Reason for Visit * Diagnostic Test (Routine) - Closed Specialty Diagnoses / Procedures Referred By Contac t Referred To Contact Radiology Diagnoses Right knee pain, unspecified chronicity Procedures MRI Knee wo Contrast Right (Generic) MRI Knee wwo Contrast Right Ray Andino MD [address] [place] [address] [place] [address] Referral ID Status Reason Start Date Expiration Date V isits Requested Visits Authorized [id number] Closed Specialty Service Requested 03/11/2022 09/09/2023 1 1 Encounter Details Date Type Department Care Team (Latest Contact Info) Description 04/18/2022 1:28 PM EST - 04/18/2022 11:59 PM EST [place] [address] Ray Andino MD [address] [place] [address] Right knee pain, unspecified chronicity Discharge Disposition: Home Social History Tobacco Use [...] Sig Dispensed Refills Start Date End Date levothyroxine (SYNTHROID) 25 mcg Tablet Take 25 mcg by mouth nightly. sertraline (ZOLOFT) 100 mg Tablet Take 150 mg by mouth daily. 0 03/19/2018 testosterone cypionate (DEPOTESTOSTERONE CYPIONATE) 200 mg/mL Oil Inject 250 mg into the muscle every 14 days. 0 05/03/2018 omeprazole (PriLOSEC) [address] capsule Take 20 mg by mouth daily. 12/18/2021 09/24/2023 oxyCODONE (Roxicodone) 5 mg Tablet Take 1 tablet by mouth every 4 hours as needed for Pain. 12 tablet 10/18/2020 05/24/2022 acetaZOLAMIDE (Diamox) 250 mg TabletIndications:Test Engine Evaluator susanna intractable headache, unspecified headache type,Hydrocephalus, unspecified type Take 1 tablet by mouth 2 times daily. 28 tablet 04/30/2020 05/24/2022 loratadine (Claritin) 10 mg Tablet 10 mg daily. 12/14/2019 05/24/2022 ketoconazole (NIZORAL) 2 % Cream 1 each as needed. 01/12/2020 05/24/2022 tiZANidine (Zanaflex) 2 mg Tablet Take 1-2 tablets by mouth 2 times daily as needed. Do not drink alcohol with tizanidine. Do not drive or operate heavy machinery while taking tizanidine. 60 tablet 1 01/16/2020 05/24/2022 benztropine (Cogentin) 0.5 mg Tablet Take 1 tablet by mouth nightly. 12/01/2019 07/02/2023 ibuprofen (Advil;Motrin) 600 mg Tablet Take 600 mg by mouth every 8 hours as needed. 10/11/2019 05/25/2022 acetaminophen (Tylenol) 500 mg Tablet Take 500 mg by mouth every 6 hours as needed. 10/11/2019 09/24/2023 Latuda 40 mg Tablet Take 40 mg by mouth every evening. 12/01/2019 07/02/2023 meloxicam (MOBIC) 15 mg Tablet as needed. 08/12/2019 05/24/2022 risperiDONE (RisperDAL) 0.5 mg Tablet TK 1 T PO HS 11/02/2019 05/24/2022 sucralfate (Carafate) 1 gram Tablet 1 tablet 4 times daily. 11/17/2019 05/24/2022 rizatriptan (MAXALT) 10 mg TabletIndications:Test Engine Evaluator susanna migraine without aura without status migrainosus, not intractable Take 1 tablet by mouth as needed for Migraine. 10 tablet 09/02/2019 09/24/2023 topiramate (TOPAMAX) 25 mg TabletIndications:Test Engine Evaluator susanna migraine without aura without status migrainosus, not intractable Take 1 tablet by mouth 2 times daily. 60 tablet 5 02/10/2019 09/24/2023 amitriptyline (ELAVIL) 25 mg Tablet Take 100 mg by mouth nightly. 05/24/2022 gabapentin (NEURONTIN) 100 mg Capsule 100 mg AM/ 200 mg HS 90 capsule 3 07/29/2018 05/24/2022 gemfibrozil (LOPID) 600 mg Tablet Take 600 mg by mouth 2 times daily (before meals). 05/24/2022 documented as of this encounter Plan of Treatment Not on file documented as of this encounter Procedures Procedure Name Priority Date/Time Associated Diagnosis Comments MRI KNEE RIGHT WO CONTRAST Routine 04/18/2022 2:47 PM EST Right knee pain, unspecified chronicity documented in this encounter Results * MRI Knee wo Contrast Right (Generic) (04/18/2022 2:47 PM EST) Anatomical Region Laterality Modality Knee Right Magnetic Resonan ce Impressions 04/18/2022 3:06 PM EST Normal MR appearance of the right knee. Thank you for letting us participate in the care of this patient. ??If you are a health care provider and have any questions regarding this report, please contact the number below. ??For patients who have questions please contact the health health care attorney that requested your imaging first. ? Electronically signed by: Aria Tsai MD, [facility] ([phone]), at 04/18/2022 3:06 PM Narrative 04/18/2022 3:06 PM EST EXAMINATION: MRI KNEE WO CONTRAST RIGHT (GENERIC) CLINICAL HISTORY: rt knee internal derangement ??rt knee internal derangement (as entered by ordering provider in the order requisition) COMPARISON: None TECHNIQUE: Routine noncontrast MRI of the Right knee was performed. ??Sequences include sagittal PD with and without fat saturation, coronal PD with and without fat saturation, axial T2 with fat saturation, and axial T1. FINDINGS: Menisci: The medial and lateral menisci are intact. Ligaments and tendons: The anterior and posterior cruciate ligaments are intact. The medial collateral ligament is intact. ??The lateral collateral ligament complex is intact. Extensor mechanism: The quadriceps and patellar tendons are intact. The medial and lateral retinacula are intact. Signal in Jordin's fat pad is normal.. Bones, cartilage and joint: No joint effusion. No fracture. ??No bone marrow replacing lesion.. ??Cartilage in the patellofemoral, medial, and lateral compartments is intact. Extra-articular: No Dietrich's cyst. Normal bulk and signal of the visualized muscles. Normal signal and caliber of the tibial and common peroneal nerves. No fluid distention of the pes anserine bursa. Procedure Note Aria Tsai MD - 04/18/2022 EXAMINATION: MRI KNEE WO CONTRAST RIGHT (GENERIC) CLINICAL HISTORY: rt knee internal derangement rt knee internalderangement (as entered by ordering provider in the order requisition) COMPARISON: None TECHNIQUE: Routine noncontrast MRI of the Right knee was performed.Sequences include sagittal PD with and without fat saturation, coronal PD with andwithout fat saturation, axial T2 with fat saturation, and axial T1. FINDINGS: Menisci: The medial and lateral menisci are intact. Ligaments and tendons: The anterior and posterior cruciate ligaments areintact. The medial collateral ligament is intact. The lateral collateralligament complex is intact. Extensor mechanism: The quadriceps and patellar tendons are intact. Themedial and lateral retinacula are intact. Signal in Jordin's fat pad is normal.. Bones, cartilage and joint: No joint effusion. No fracture. No bonemarrow replacing lesion.. Cartilage in the patellofemoral, medial, and lateral compartments is intact. Extra-articular: No Dietrich's cyst. Normal bulk and signal of thevisualized muscles. Normal signal and caliber of the tibial and common peronealnerves. No fluid distention of the pes anserine bursa. IMPRESSION Normal MR appearance of the right knee. Thank you for letting us participate in the care of this patient. If youare a health care provider and have any questions regarding this report,please contact the number below. For patients who have questions please contactthe health health care attorney that requested your imaging first. Electronically signed by: Aria Tsai MD, [facility]([phone]), at 04/18/2022 3:06 PM Ray Andino MD [facility] MRI ORDERABLES documented in this encounter Visit Diagnoses Diagnosis Right knee pain, unspecified chronicity documented in this encounter Care Teams Media Theorist And Author Of Relationship Specialty Start Date End Date Irma Gates [place]N [facility] [place] [address] PCP - General Family Medicine 09/20/20 08/20/22 documented as of this encounter
--- OUTSIDE RECORDS SUMMARY | 2024-02-29 15:49 | XMS_ITS | Encounter Summary ---
Author Organization [facility] [place] [address] Care Team Providers Care Channel Cementer Outsole Machine Name Role Phone Rosario Varela APRN Primary Care Provider [phone] Reason for Visit * Reason Onset Date Comments TeleHealth 01/30/2020 Appt 01/31/20 Encounter Details Date Type Department Care Team (Late st Contact Info) Description 01/30/2020 Tele[place] [address] Sonia Escalona REAL ESTATE SERVICES ADMINISTRATOR [facility] [place] [address] TeleHealth (Appt 01/31/20) Social History Tobacco Use Types Packs/Day Years [...] encounter Miscellaneous Notes * Telephone Encounter - Madina Manning CMA - 01/30/2020 3:15 PM EST Tried calling facility patient was supposedly living at but he no longer lives there. Message sent to [facility] secretaries to update note. Also tried calling patient's number but no answer. documented in this encounter Plan of Treatment Not on file documented as of this encounter Visit Diagnoses Not on filedocumented in this encounter Care Teams Channel Cementer Outsole Machine Relationship Specialty Start Date End Date Rosario Varela APRN [address] [place] [address] PCP - General Family Medicine 02/03/18 09/19/20 documented as of this encounter
--- OUTSIDE RECORDS SUMMARY | 2024-02-29 15:49 | XMS_ITS | Encounter Summary ---
Author [facility] [place] [address] Care Team Providers Care Coldfusion Name Role Phone Irma Gates APRN Primary Care Provider Encounter Details Date Type Department Care Team (Latest Contact Info) Description 04/18/2022 Travel Social History Tobacco Use Types Packs/Day [...] on filedocumented in this encounter Care Teams Coldfusion Relationship Specialty Start Date End Date Irma Gates APRN [address] [place] [address] PCP - General Family Medicine 09/20/20 08/20/22 documented as of this encounter
--- OUTSIDE RECORDS SUMMARY | 2024-02-29 15:49 | XMS_ITS | Encounter Summary ---
[facility] [place] [address] Care Team Providers Care Special Inspector Name Role Phone Irma Gates APRN Primary Care Provider Encounter Details Date Type Department Care Team (Latest Contact Info) Description 02/25/2022 Travel Social History Tobacco Use Types Packs/Day [...] on filedocumented in this encounter Care Teams Special Inspector Relationship Specialty Start Date End Date Irma Gates APRN [address] [place] [address] PCP - General Family Medicine 09/20/20 08/20/22 documented as of this encounter
--- OUTSIDE RECORDS SUMMARY | 2024-02-29 15:49 | XMS_ITS | Encounter Summary ---
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 (FAQ), she endorsed observing difficulty with management of finances, as well as organizing travel. SUMMARY AND RECOMMENDATIONS: On the current evaluation, Mr. Costa had difficulties with verbal and visual learning (acquisition/encoding) and memory (though verbal learning and recognition memory performance improved with provision of contextual organization/structure), response inhibition, problem solving (concept formation and maintaining attention), rapid word generation, and visuospatial planning/organization with poor attention to detail. Processing speed was variable (borderline to average) as was working memory (extremely low to low average). Motor slowness was lateralized to the left hand. Performance was withi n normal limits for basic auditory attention, receptive language, untimed expressive language, practical judgment, nonverbal reasoning abilities, and basic visuoconstruction. These results were obtained in the context of estimated low average core verbal and perceptual intellectual abilities, low average to average estimated baseline ability, and good cognitive effort. On self-report questionnaire measures, his responses indicated a severe level of symptoms consistent with depression and a mild level of symptoms consistent with anxiety at the time of the evaluation. He also endorsed moderate symptoms of insomnia without excessive daytime sleepiness. On informant questionnaire measures, his mother denied significant problems with practical judgment; however, shereported concern regarding aspects of executive functioning and functional independence in everydaylife. The present pattern of findings indicate difficulties with learning and memory (most notable for reduced acquisition/learning) and variable attention, processing speed, and executive functions, that may be consistent with his history of aqueductal stenosis and early developmental delay. Findings may also reflect potential brain injury from repeated shunting from a young age and reported coma during the developmental period (i.e., before age 20) and history of seizures. His lateralization of motor slowness to his left hand is consistent with his history of left-sided hemiparesis. Additionally,there are several other factors that may be contributing to more recent cognitive changes including affective distress (depression and anxiety), sleep disturbance, cerebrovascular risk factors (hyperlipidemia, hypertension, obstructive sleep apnea), migraines, and chronic pain. Given reported decline in cognitive and functional status, Mr. Costa appears to meet criteria for Mild NeurocognitiveDisorder, at minimum, at this time. The following recommendations are offered: ??? His team may wish to consider updated neuroimaging to inform differential diagnosis and treatment planning. Notes suggest his current shunt may not be MRI compatible, so alternatives may need to be considered. ??? Given the severity and persistence of his endorsed affective symptoms, he may benefit from increasing the frequency of visits with his mental health providers. Clinicians may wish to engage in motivational interviewing with him in order to assist him in identifying goals, values, and barriers to increase success in the community. Motivational interviewing when combined with behavioral activation can also be helpful for management of depression. ??? It is unclear who is currently managing his medications for mood and/or migraines, specificallywith regards to amitriptyline, which can have cognitive side-effects. It is recommended he be referred to psychiatry in order to establish and long-term care and management of mood, as well as consideration of other pharmacological treatments that may have less of a cognitive burden. ??? Mr. Costa carries a diagnosis of obstructive sleep apnea and endorsed symptoms of insomnia. Though he described not feeling like he is benefiting from CPAP treatment, it is still recommended he continue to use his CPAP regularly. Untreated sleep apnea is associated with sleep fragmentation, brain deoxygenation, and increased risk for microvascular changes, all of which can affect cognition, in addition to having negative effects on general health, daily energy, and mood. He may benefit from an updated consultation with sleep medicine. ??? Mr. Costa may also benefit from general sleep hygiene tips such as: o No caffeine or alcohol 4-6 hours before bedtime. o A light snack but no heavy meal or food around bedtime. o Minimize noise, light, and excessive temperature during sleep time. o Get out of bed if you can???t fall asleep or return to sleep within 10-20 minutes. o Going to bed and waking up at the same time each day o No naps during the day to consolidate sleep at night. o Avoid clock watching. o If sleep problems persist, consider a referral for Cognitive Behavior Therapy for Insomnia (CBT-I) ??? Given his difficulties with motor functioning and speech fluency, referrals to speech-language therapy and/or occupational/physical therapy might prove useful. ??? Similarly, he may benefit from cognitive rehabilitation, which can be performed by the [employer] or OT, with a focus on executive functions. Given his history of seizures, he may be eligible for [facility] ([email or web address]) ??? Mr. Costa may benefit from increased structure and organization in his daily life. Minimizing distractions and multi-tasking could help maintain focus on completing important tasks, as well asimproving attention and working memory. He benefited from simple repetition and when provided an executive framework, thus future planning and treatment may wish to incorporate his strengths to assist with his areas of difficulty. ??? For additional resources for adults with disabilities (both developmental and acquired), it is recommended he contact the following government organizations through the [place] Department of Disabilities, Aging & Independent Living. o Developmental Disabilities Services Division (https://ddsd.[place]/ or call 284-783-6132) o Adult Services Division ([email or web address]://asd.[place]/ or call 725-074-7811) ??? To support brain health and cognitive functioning, he is encouraged to engage in healthy lifestyle practices such as: o Compliance with physicians??? treatment plans to manage medical conditions o Maintain abstinence from addictive substances (e.g., including alcohol) o Regular physical exercise (as medically advisable), such as walking and yoga/calisthenics o Maintaining a healthy, balanced diet and sleep routine o Daily involvement in mentally engaging activities (e.g., socializing with others, reading, playing brain games such as puzzles) ??? Given difficulties with executive functions, he may benefit from compensatory strategies such as: o Break complex and/or lengthy tasks into smaller steps when possible. o Completing tasks in shorter blocks of time and taking breaks as needed. o Create checklists of the steps needed to complete tasks, especially those that involve numerous steps and/or are complex, must be done over an extended time period, and/or that require additional materials to complete (list those materials next to the related step as a helpful reminder). o Verbalize a plan or approach, then write it down (or use [id number]). o Keep his living space free of clutter and minimize distractions when completing tasks. o Avoiding multi-tasking when possible. o Use mnemonic devices or contextualize to the situation to help with visual learning and memory. o Plan and allocate for extra time when traveling or completing tasks ??? Specific to memory, he may wish to consider trying the following strategies, if not already doing so: o Focus only on the information being learned and try to minimize distractions o Contextualize information to the situation to help with learning o Incorporate written reminders or lists for critical details o Try various cognitive strategies such as: - Verbalization (say/describe information aloud) - Repetition of material (rehearsing information to help learning) - Chunking material together (break large information into smaller groups; especially helpful if each group contains related information, such as fruits, vegetables, and dairy products of trying to remember a grocery list) - Association of concepts (link new learning to something you know well) - Visual imagery (create a mental picture of what you want to remember) - Emotional connection (create an emotional reaction to learning of material) o Have a calendar on the refrigerator or highly visible location where important appointments and/or reminders can be placed o When learning something new, try to associate with meaningful cues or previously learned materialto facilitate retrieval. o Repeat back what was learned to ensure understanding, and/or teach it to someone else ??? Neuropsychological re-evaluation may be considered in 12-18 months in order to monitor for cognitive changes and further inform differential diagnosis and treatment planning. Thank you for referring Mr. Costa for neuropsychological evaluation. If you would like additional information, please do not hesitate to contact us at . Josefa Calero PsyD Postdoctoral Fellow in Neuropsychology Writing Center Directorembedded systems engineer A postdoctoral fellow in neuropsychology was involved in test administration, interpretation, and report development. The interpretation and integration of pertinent clinical information found in this report was directed and verified by the supervising neuropsychologist/licensed clinical psychologist. 68958: 1 hour (1 unit) 04649: 1 hour 51 minutes (2 units) 78704: 30 minutes (1 unit) 59506: 3 hours 53 minutes (8 units) Billing Code: Mild neurocognitive disorder [G31.84 (ICD-10-CM)], Hydrocephalus associated with congenital aqueduct stenosis [Q03.0 (ICD-10-CM)], S/P SUBSTANCE ABUSE SERVICES DIRECTOR shunt [Z98.2 (ICD-10-CM)], Persistent headaches[R51.9 (ICD-10-CM)], Seizures [R56.9 (ICD-10-CM)] documented in this encounter Plan of Treatment Scheduled Referrals Name Type Priority Associated Diagnoses Order Schedule Referral to Neuropsychology Outpatient Referral Routine Mild cognitive impairment History of head injury Ordered: 10/18/2021 documented as of this encounter Visit Diagnoses Diagnosis Mild neurocognitive disorder Hydrocephalus associated with congenital aqueduct stenosis Congenital hydrocephalus S/P SUBSTANCE ABUSE SERVICES DIRECTOR shunt Presence of cerebrospinal fluid drainage device Persistent headaches Headache Seizures Other convulsions documented in this encounter Care Teams System Architect Relationship Specialty Start Date End Date Irma Gates APRN [address] [place] [address] PCP - General Family Medicine 09/20/20 08/20/22 documented as of this encounter
--- OUTSIDE RECORDS SUMMARY | 2024-02-29 15:49 | XMS_ITS | Encounter Summary ---
Author Organization [facility] [place] [address] Care Team Providers Care Senior Clinical Data Analyst Name Role Phone Rosario Varela APRN Primary Care Provider [phone] Reason for Visit * Reason Comments Neck Pain head pain * Consultation (Routine) - Closed Specialty Diagnoses / Procedures Referred By Mansi t Referred To Contact [facility] Diagnoses Cervicalgia Pain - f/u s/p neurosurgey appt Sonia Chakraborty APRN [facility] [place] [address] [facility] [place] [address] Referral ID Status Reason Start Date Expiration Date Visits Requested Visits Authorized [id number] Closed Pain Interventional Procedure 03/09/2020 03/09/2021 1 1 Encounter Details Date Type Department Care Team (Late st Contact Info) Description 04/30/2020 4:00 PM EST Office Visit [facility] [place] [address] Jorge Mojica MD [facility] [place] [address] Headache, chronic daily; S/P MACHINE SPRING FORMER shunt; Spondylosis without myelopathy or radiculopathy, cervical region Social History Tobacco Use Types Packs/Day Years [...] Sign Reading Time Taken Comments Blood Pressure 142/99 04/30/2020 3:47 PM EST Pulse 100 04/30/2020 3:47 PM EST Temperature 37.2 ??C (99 ??F) 04/30/2020 3:47 PM EST Respiratory Rate - - Oxygen Saturation 96% 04/30/2020 3:47 PM EST Inhaled Oxygen Concentration - - Weight 88.5 kg (195 lb) 04/30/2020 3:47 PM EST Height 167.6 cm (5' 6) 04/30/2020 3:47 PM EST Body Mass Index 31.47 04/30/2020 3:47 PM EST documented in this encounter Progress Notes * Jorge Mojica MD - 04/30/2020 4:00 PM EST [facility] - Follow Up Note Date of visit: 04/30/20 : 1970 CC: Chief Complaint Patient presents with ??? Neck Pain head pain HPI: Chapin Costa is a 49 y.o. year old male who presents to the pain clinic today for follow up in regards to ongoing right sided neck pain and headaches. He has undergone a shunt tap on 01/17/2020, for NM shunt study. The shunt was found to be patent distally, but there was some question about proximal patency. On 03/08/2020, he had a repeat shunt tap for evaluation of the proximal patency. Procedure note reviewed. Reportedly, there was good flow, and no evidence of proximal shunt obstruction. He also had abdominal pain following that exam. He had x-rays done at [facility] to r/o any kinking of the shunt. The studies were negative, per neurosurgery reports. He currently has a headache and neck pain. Headaches are mostly frontal, and he has discomfort at the catheter site behind his right ear. He has baseline migraines, but he identifies this headache asa different pattern. Pain is worse in the mornings, when he gets up from a lying down position. Eye movements hurt. The pain gets dull throughout the day. He reports his headaches as 5-6/10. He has not found any medication helpful in particular, so far. He denies any weakness, numbness or bowel/ bladder dysfunction. He has no change in his gait. PMH/PSH: Patient Active Problem List Diagnosis Code ??? S/P MACHINE SPRING FORMER shunt Z98.2 ??? Persistent headaches R51.9 ??? Headache R51.9 ??? Cervicalgia M54.2 ??? Seizures R56.9 ??? Hydrocephalus G91.9 Past Medical History: Diagnosis Date ??? Depression ??? Hearing loss r ear ??? Hydrocephalus associated with congenital aqueduct stenosis ??? Hyperlipidemia ??? Hypertension ??? Memory disorder ??? Seizures ??? Syncope and collapse ??? Vision abnormalities related to hydrocephalus Past Surgical History: Procedure Laterality Date ??? CARPAL TUNNEL RELEASE Right ??? CHOLECYSTECTOMY, LAPAROSCOPIC ??? SHOULDER SURGERY ??? ULNAR TUNNEL RELEASE Right ??? VENTRICULOPERITONEAL SHUNT Multiple revisions - ~46 prior revisions FAMILY HISTORY: Family History Problem Relation Age of Onset ??? Muscular Dystrophy Cousin SOCIAL HISTORY: Social History Socioeconomic History ??? Marital status: Spouse name: Not on file ??? Number of children: Not on file ??? Years of education: Not on file ??? Highest education level: Not on file Occupational History ??? Not on file Tobacco Use ??? Smoking status: Never Smoker ??? Smokeless tobacco: Never Used Substance and Sexual Activity ??? Alcohol use: No ??? Drug use: No ??? Sexual activity: Not on file Other Topics Concern ??? Not on file Social History Narrative ??? Not on file Social Determinants of Health Financial Resource Strain: ??? Difficulty of Paying Living Expenses: Food Insecurity: ??? Worried About Running Out of Food in the Last Year: ??? Ran Out of Food in the Last Year: Transportation Needs: ??? Lack of Transportation (Medical): ??? Lack of Transportation (Non-Medical): Physical Activity: ??? Days of Exercise per Week: ??? Minutes of Exercise per Session: Stress: ??? Feeling of Stress : Social Connections: ??? Frequency of Communication with Friends and Family: ??? Frequency of Social Gatherings with Friends and Family: ??? Attends Rastafari Services: ??? Active Member of Clubs or Organizations: ??? Attends Club or Organization Meetings: ??? Marital Status: Intimate Partner Violence: ??? Fear of Current or Ex-Partner: ??? Emotionally Abused: ??? Physically Abused: ??? Sexually Abused: MEDICATIONS: Reconciled and updated in the EMR. Current Outpatient Medications: ??? loratadine (Claritin) 10 mg Tablet, daily., Disp: , Rfl: ??? ketoconazole (NIZORAL) 2 % Cream, as needed., Disp: , Rfl: ??? tiZANidine (Zanaflex) 2 mg Tablet, Take 1-2 tablets by mouth 2 times daily as needed. Do not drink alcohol with tizanidine. Do not drive or operate heavy machinery while taking tizanidine., Disp:60 tablet, Rfl: 1 ??? benztropine (Cogentin) 0.5 mg Tablet, 1 tablet daily., Disp: , Rfl: ??? Latuda 40 mg Tablet, 1 tablet nightly., Disp: , Rfl: ??? meloxicam (MOBIC) 15 mg Tablet, as needed., Disp: , Rfl: ??? sucralfate (Carafate) 1 gram Tablet, 1 tablet 4 times daily., Disp: , Rfl: ??? rizatriptan (MAXALT) 10 mg Tablet, Take 1 tablet by mouth as needed for Migraine., Disp: 10 tablet, Rfl: 0 ??? metoprolol succinate XL (Toprol-XL) 25 mg Tablet Sustained Release 24 hr, Take 25 mg by mouth daily., Disp: , Rfl: ??? topiramate (TOPAMAX) 25 mg Tablet, Take 1 tablet by mouth 2 times daily., Disp: 60 tablet, Rfl:5 ??? amitriptyline (ELAVIL) 25 mg Tablet, Take 100 mg by mouth nightly., Disp: , Rfl: ??? gabapentin (NEURONTIN) 100 mg Capsule, 100 mg AM/ 200 mg HS (Patient taking differently: 2 times daily. 100 mg AM/ 100mg HS), Disp: 90 capsule, Rfl: 3 ??? levothyroxine (SYNTHROID) 25 mcg Tablet, Take 25 mcg by mouth daily., Disp: , Rfl: ??? sertraline (ZOLOFT) 100 mg Tablet, Take 100 mg by mouth daily., Disp: , Rfl: 0 ??? testosterone cypionate (DEPOTESTOSTERONE CYPIONATE) 200 mg/mL Oil, Inject into the muscle every14 days., Disp: , Rfl: 0 ??? gemfibrozil (LOPID) 600 mg Tablet, Take 600 mg by mouth 2 times daily (before meals)., Disp: , Rfl: ??? acetaZOLAMIDE (Diamox) 250 mg Tablet, Take 1 tablet by mouth 2 times daily. (Patient not taking: Reported on 04/30/2020), Disp: 28 tablet, Rfl: 0 ??? ibuprofen (Advil;Motrin) 600 mg Tablet, TK 1 T PO Q 8 H PRF PAIN, Disp: , Rfl: ??? acetaminophen (Tylenol) 500 mg Tablet, TK 1 T PO Q 6 H PRF PAIN, Disp: , Rfl: ??? risperiDONE (RisperDAL) 0.5 mg Tablet, TK 1 T PO HS, Disp: , Rfl: ALLERGIES: Allergies Allergen Reactions ??? Latex Other reaction(s): hives with latex powdered gloves ??? Penicillins ??? Tegaderm [Transparent Dressings] Itching ??? Vancomycin Analogues ??? Vancomycin Hcl ROS: Review of Systems He denies any fevers, chills, sweating or weight changes. Positive for above mentioned musculoskeletal and neurological findings. On 14 point system review. PHYSICAL EXAM: BP (!) 142/99 Pulse 100 Temp 37.2 ??C (99 ??F) (Oral) Ht 167.6 cm (5' 6) Wt 88.5 kg (195 lb) SpO2 96% BMI 31.47 kg/m?? Physical Exam Alert and responsive. In significant distress. Accompanied by his mother. Vital signs are stable. On musculoskeletal exam, she had tenderness over the right greater occipital, lesser occipital, right auriculotemporalis (harvest site) and right supraorbital neuralgia. Cervical ROM is reduced. On neurological exam, he has no focal sensory or motor deficits. Strength is intact. Ansari (+), Clonus (-) , Babinski downgoing TESTS / IMAGING: Cervical: MRI Cervical Spine wo Contrast (Generic) Result Date: 04/30/2020 TECHNIQUE: MRI of the cervical spine performed without intravenous contrast administration. ?? COMPARISON: 08/16/2018, 01/19/2017 ?? FINDINGS: Overall cervical alignment is unremarkable. There is no focal, aggressive appearing marrow lesion. Cervical cord signal is normal. ?? Findings at specific levels: C2-C3: No canal or foraminal narrowing. ?? C3-C4: Uncovertebral and facet hypertrophic changes produce mild right worse left foraminal narrowing. Findings are similar to the prior study. ?? C4-C5: Small central disc protrusion minimally indents ventral thecal sac. There are mild facet degenerative changes with mild right worse left foraminal narrowing, unchanged. ?? C5-C6: Small central disc herniation is unchanged with mild overall canal narrowing. There is unchanged mild foraminal narrowing. ?? C6-C7: Central and right paracentral disc extrusion contacts and slightly alters the ventral contour the cord with unchanged moderate canal narrowing. Disc material contributes to moderate right foraminal narrowing without change. There is mild left foraminal narrowing. ?? C7-T1: No canal or foraminal stenosis. ?? IMPRESSION Changes of cervical spondylosis most pronounced at C5-C6 and C6-C7 as above. Overall, findings are similar to the previous study. NOSIS: 1. Headache, chronic daily 2. S/P MACHINE SPRING FORMER shunt 3. Spondylosis without myelopathy or radiculopathy, cervical region ASSESSMENT: 49 year old M with prior MACHINE SPRING FORMER shunt for congenital aqueduct stenosis, now with persistent daily headaches and posterior auricular pain at the site of the shunt catheter. Although present, and contributory to a limited extent, cervical spondylosis does not fully explain his symptoms, and his headaches. PLAN: Injection: None indicated currently. Once cleared in terms of intracranial pressures and pathology,right greater occipital / lesser occipital/ right SONB and trigger point injections can be considered. Medication: Started on Diamox by Neurosurgery Imaging: Pertinent imaging studies reviewed. Physical therapy/home exercise plan: Continue activity as tolerated Referral: Neurology/ Headache Clinic follow up Follow up: After Neurology/ headache evaluation Jorge Mojica MD [facility] [address] [address] / CC: Sonia Escalona APRN [facility] [place] [address] documented in this encounter Plan of Treatment Scheduled Referrals Name Type Priority Associated Diagnoses Order Schedule Referral to Pain Management Outpatient Referral Routine Cervicalgia Ordered: 03/09/2020 documented as of this encounter Visit Diagnoses Diagnosis Headache, chronic daily Headache S/P MACHINE SPRING FORMER shunt Presence of cerebrospinal fluid drainage device Spondylosis without myelopathy or radiculopathy, cervical region documented in this encounter Care Teams Senior Clinical Data Analyst Relationship Specialty Start Date End Date Rosario Varela APRN [address] [place] [address] PCP - General Family Medicine 02/03/18 09/19/20 documented as of this encounter
--- OUTSIDE RECORDS SUMMARY | 2024-02-29 15:49 | XMS_ITS | Encounter Summary ---
[place] [address] Care Team Providers Care Food Products Tester Name Role Phone Rosario Varela APRN Primary Care Provider [phone] Reason for Referral * Diagnostic Test (Routine) - Closed Specialty Diagnoses / Procedures Referred By Contac t Referred To Contact Radiology Diagnoses Degenerative cervical spinal stenosis Procedures MRI Cervical Spine wo Contrast (Generic) Sonia Escalona APRN [facility] [place] [address] [place] [address] [place] [address] Referral ID Status Reason Start Date Expiration Date V isits Requested Visits Authorized [id number] Closed Specialty Service Requested 03/16/2020 09/13/2021 1 1 Reason for Visit * Diagnostic Test (Routine) - Closed Specialty Diagnoses / Procedures Referred By Contac t Referred To Contact Radiology Diagnoses Degenerative cervical spinal stenosis Procedures MRI Cervical Spine wo Contrast (Generic) Sonia Escalona APRN [facility] [place] [address] [place] [address] Referral ID Status Reason Start Date Expiration Date V isits Requested Visits Authorized [id number] Closed Specialty Service Requested 03/16/2020 09/13/2021 1 1 Encounter Details Date Type Department Care Team (Latest Contact Info) Description 04/30/2020 10:25 AM EST - 04/30/2020 11:59 PM EST Hospital Encounter MRI [facility] [place] [address] Sonia Escalona APRN [facility] [place] [place] [address] Degenerative cervical spinal stenosis Discharge Disposition: Home Social History Tobacco Use [...] the muscle every 14 days. 0 05/03/2018 acetaZOLAMIDE (Diamox) 250 mg TabletIndications:On Site Coordinator susanna intractable headache, unspecified headache type,Hydrocephalus, unspecified [...] daily. 11/17/2019 05/24/2022 rizatriptan (MAXALT) 10 mg TabletIndications:On Site Coordinator susanna migraine without aura without status migrainosus, not intractable Take 1 tablet by mouth as needed for Migraine. 10 tablet 09/02/2019 09/24/2023 topiramate (TOPAMAX) 25 mg TabletIndications:On Site Coordinator susanna migraine without aura without status migrainosus, [...] Name Priority Date/Time Associated Diagnosis Comments MRI CERVICAL SPINE WO CONTRAST Routine 04/30/2020 11:16 AM EST Degenerative cervical spinal stenosis documented in this encounter Results * MRI Cervical Spine wo Contrast (Generic) (04/30/2020 11:16 AM EST) Anatomical Region Laterality Modality C-spine Magnetic Resonan ce Impressions 04/30/2020 1:33 PM EST Changes of cervical spondylosis most pronounced at C5-C6 and C6-C7 as above. Overall, findings are similar to the previous study. Thank you for letting us participate in the care of this patient. For questions regarding this report, please contact the number below. ? Narrative 04/30/2020 1:33 PM EST EXAMINATION: MRI CERVICAL SPINE WO CONTRAST (GENERIC) CLINICAL HISTORY: Cervical radiculopathy worsening neck pain headaaches - history of cervical stenosis TECHNIQUE: MRI of the cervical spine performed without intravenous contrast administration. COMPARISON: 08/16/2018, 01/19/2017 FINDINGS: Overall cervical alignment is unremarkable. There is no focal, aggressive appearing marrow lesion. Cervical cord signal is normal. Findings at specific levels: C2-C3: No canal or foraminal narrowing. C3-C4: Uncovertebral and facet hypertrophic changes produce mild right worse left foraminal narrowing. Findings are similar to the prior study. C4-C5: Small central disc protrusion minimally indents ventral thecal sac. There are mild facet degenerative changes with mild right worse left foraminal narrowing, unchanged. C5-C6: Small central disc herniation is unchanged with mild overall canal narrowing. There is unchanged mild foraminal narrowing. C6-C7: Central and right paracentral disc extrusion contacts and slightly alters the ventral contour the cord with unchanged moderate canal narrowing. Disc material contributes to moderate right foraminal narrowing without change. There is mild left foraminal narrowing. C7-T1: No canal or foraminal stenosis. Procedure Note Isac Rob MD - 04/30/2020 EXAMINATION: MRI CERVICAL SPINE WO CONTRAST (GENERIC) CLINICAL HISTORY: Cervical radiculopathy worsening neck pain headaaches - history of cervical stenosis TECHNIQUE: MRI of the cervical spine performed without intravenous contrastadministration. COMPARISON: 08/16/2018, 01/19/2017 FINDINGS: Overall cervical alignment is unremarkable. There is no focal,aggressive appearing marrow lesion. Cervical cord signal is normal. Findings at specific levels: C2-C3: No canal or foraminal narrowing. C3-C4: Uncovertebral and facet hypertrophic changes produce mild rightworse left foraminal narrowing. Findings are similar to the prior study. C4-C5: Small central disc protrusion minimally indents ventral thecal sac.There are mild facet degenerative changes with mild right worse left foraminal narrowing, unchanged. C5-C6: Small central disc herniation is unchanged with mild overallcanal narrowing. There is unchanged mild foraminal narrowing. C6-C7: Central and right paracentral disc extrusion contacts and slightlyalters the ventral contour the cord with unchanged moderate canal narrowing.Disc material contributes to moderate right foraminal narrowing without change.There is mild left foraminal narrowing. C7-T1: No canal or foraminal stenosis. IMPRESSION Changes of cervical spondylosis most pronounced at C5-C6 and C6-C7 asabove. Overall, findings are similar to the previous study. Thank you for letting us participate in the care of this patient. Forquestions regarding this report, please contact the number below. Sonia Escalona APRN IMG MRI ORDERABLE S documented in this encounter Visit Diagnoses Diagnosis Degenerative cervical spinal stenosis Spinal stenosis in cervical region documented in this encounter Care Teams Food Products Tester Relationship Specialty Start Date End Date Rosario Varela APRN [address] [place] [address] PCP - General Family Medicine 02/03/18 09/19/20 documented as of this encounter
--- OUTSIDE RECORDS SUMMARY | 2024-02-29 15:49 | XMS_ITS | Encounter Summary ---
Author Organization [facility] Address [facility] [place] [address] Care Team Providers Care Fiscal Economist Name Role Phone Rosario Varela APRN Primary Care Provider [phone] Reason for Visit * Reason Comments Follow-up proximal shunt evalu ation Encounter Details Date Type Department Care Team (Late st Contact Info) Description 03/08/2020 3:30 PM EST Office [place] [id number] Cl Atkins PA [facility] [place] [address] Hydrocephalus, unspecified type Social History Tobacco Use [...] Sign Reading Time Taken Comments Blood Pressure 128/76 03/08/2020 3:14 PM EST Pulse 118 03/08/2020 3:14 PM EST Temperature 36.4 ??C (97.5 ??F) 03/08/2020 3:14 PM ES T Respiratory Rate - - Oxygen Saturation - - Inhaled Oxygen Concentration - - Weight - - Height - - Body Mass Index - - documented in this encounter Progress Notes * Cl Atkins PA - 03/08/2020 3:30 PM EST Name: Chapin Costa : 1970 PCP: Rosario Varela APRN REF: No ref. provider found Date of Service: 03/08/2020 Chief Complaint Patient presents with ??? Follow-up proximal shunt evaluation Patient seen at the request of Sonia Escalona APRN for shunt tap to rule out proximal shunt obstruction. I discussed the procedure with the patient including the risks, particularly shunt/BOILER TENDER infection and mechanical damage to the shunt. He agreed to proceed. Please see separate procedure note. In brief, I did not find any evidence of proximal shunt obstruction. Patient will follow up with Ms. Escalona to review results and determine next steps. Cl Atkins PA-C, MS Physician Seismograph Operator [place]per [place] [address] documented in this encounter Procedure Notes * Cl Atkins PA - 03/08/2020 3:30 PM ESTProcedure(s): PUNCTURE SHUNT TUBING OR RESEVOIR FOR ASPIRATION OR INJECTION Pre-Procedure Diagnose(s): Hydrocephalus, unspecified type Post-Procedure Diagnose(s): Hydrocephalus, unspecified type Shunt tap R VPS reservoir identified in the R occipital region. Site prepped with chlorhexidine swab stick. Under sterile conditions reservoir infiltrated on first pass with a 25G butterfly needle. Using very gentle aspiration clear colorless CSF could be drawn into the proximal tubing of the butterfly needle. Pulsations were seen in the fluid column of the butterfly needle tubing. Uncapping the tubing resulted in spontaneous egress of CSF. Needle was withdrawn. Site was cleaned with another chlorhexidine swab stick. No leakage of CSF or bleeding was noted. Band-aid was applied. Patient tolerated the procedure well. Cl Atkins PA-C, MS Physician Seismograph Operator [place] [address] documented in this encounter Plan of Treatment Not on file documented as of this encounter Visit Diagnoses Diagnosis Hydrocephalus, unspecified type documented in this encounter Care Teams Fiscal Economist Relationship Specialty Start Date End Date Rosario Varela APRN [address] [place] [address] PCP - General Family Medicine 02/03/18 09/19/20 documented as of this encounter
--- OUTSIDE RECORDS SUMMARY | 2024-02-29 15:49 | XMS_ITS | Encounter Summary ---
Author Organization [facility] [place] [address] Care Team Providers Care Forensic Science Technician Name Role Phone Irma Gates APRN Primary Care Provider [phone] Reason for Referral * Psychiatric (Routine) - Closed Specialty Diagnoses / Procedures Referred By Contac t Referred To Contact Psychiatry Diagnoses Mild cognitive impairment History of head injury Procedures PRO NEUROPSYCHOLOGICAL TEST EVAL PHYS/QHP 1ST HOUR PRO NEUROPSYCHOLOGICAL TEST EVAL PHYS/QHP EA ADDL HR TC PSYCL/NRPSYCL WATER ATTENDANT 2+ TEST 1ST 30 MIN TC PSYCL/NRPSYCL WATER ATTENDANT 2+ TEST EA ADDL 30 MIN PRO NEUROBEHAVIORAL STATUS EXAM, FIRST HOUR Irma Gates APRN [address] [place] [address] Royal Tanner, PhD [facility] [place] [address] Referral ID Status Reason Start Date Expiration Date V isits Requested Visits Authorized [id number] Closed Consult, Test & Treat PCP Updated and/or Approved 10/18/2021 10/18/2022 6 6 Encounter Details Date Type Department Care Team (Latest Contact Info) Description 10/18/2021 Transcribe Orders eDH Incoming Referrals [phone] Irma Gates APRN [address] [place] [address] Mild cognitive impairment; History of head injury Social History Tobacco Use Types Packs/Day Years [...] of this encounter Plan of Treatment Scheduled Referrals Name Type Priority Associated Diagnoses Order Schedule Referral to Neuropsychology Outpatient Referral Routine Mild cognitive impairment History of head injury Ordered: 10/18/2021 documented as of this encounter Visit Diagnoses Diagnosis Mild cognitive impairment Mild cognitive impairment, so stated History of head injury Personal history of other injury documented in this encounter Care Teams Forensic Science Technician Relationship Specialty Start Date End Date Irma Gates APRN [address] [place] [address] PCP - General Family Medicine 09/20/20 08/20/22 documented as of this encounter
--- OUTSIDE RECORDS SUMMARY | 2024-02-29 15:49 | XMS_ITS | Encounter Summary ---
[place] [address] Care Team Providers Care Burlap Roll Coverer Name Role Phone Rosario Varela APRN Primary Care Provider [phone] Reason for Referral * Consultation (Routine) - Closed Specialty Diagnoses / Procedures Referred By Contac t Referred To Contact [facility] Diagnoses Cervicalgia Pain - f/u s/p neurosurgey appt Sonia Chakraborty [facility] [place] [place] [address] [facility] [place] [address] Referral ID Status Reason Start Date Expiration Date Visits Requested Visits Authorized [id number] Closed Pain Interventional Procedure 03/09/2020 03/09/2021 1 1 Encounter Details Date Type Department Care Team (Late st Contact Info) Description 03/09/2020 [place] [address] Sonia Escalona APRN [facility] [place] [address] Cervicalgia Social History Tobacco Use Types Packs/Day Years [...] as of this encounter Visit Diagnoses Diagnosis Cervicalgia documented in this encounter Care Teams Burlap Roll Coverer Relationship Specialty Start Date End Date Rosario Varela APRN [address] [place] [address] PCP - General Family Medicine 02/03/18 09/19/20 documented as of this encounter
--- OUTSIDE RECORDS SUMMARY | 2024-02-29 15:49 | XMS_ITS | Encounter Summary ---
Author [place] [address] Care Team Providers Care Skidder Loader Name Role Phone Rosario Varela APRN Primary Care Provider [phone] Reason for Referral * Diagnostic Test (Routine) - Closed Specialty Diagnoses / Procedures Referred By Contac t Referred To Contact Radiology Diagnoses Degenerative cervical spinal stenosis Procedures MRI Cervical Spine wo Contrast (Generic) Sonia Escalona APRN [facility] [place] [address] [place] [address] Referral ID Status Reason Start Date Expiration Date V isits Requested Visits Authorized [id number] Closed Specialty Service Requested 03/16/2020 09/13/2021 1 1 Encounter Details Date Type Department Care Team (Late st Contact Info) Description 03/16/2020 [place] [address] Sonia Escalona APRN [facility] [place] [place] [address] Social History Tobacco Use Types Packs/Day Years [...] Telephone Encounter - Sonia Escalona APRN - 03/16/2020 10:13 AM EST I spoke to Chapin today to let him know that there is no obstruction, or kinking in shunt tubing.He says his abdominal pain improved over the past week. He continues to have neck pain and headaches. We reviewed medications that might help with neck pain. Will order MRI to be done on same day as appointment with neurosurgery (Cami) and that way he can have shunt reprogrammed afterwards. documented in this encounter Plan of Treatment Not on file documented as of this encounter Results * MRI Cervical Spine [...] report, please contact the number below. ? Electronically signed by: Isac Rob MD, [facility] ([phone]), at 04/30/2020 1:33 PM Narrative 04/30/2020 1:33 PM EST EXAMINATION: MRI [...] please contact the number below. Sonia Escalona FEED ADVISER IMG MRI ORDERABLE S documented in this encounter Visit Diagnoses Diagnosis Cervicalgia Degenerative cervical spinal stenosis Spinal stenosis in cervical region Degenerative cervical spinal stenosis Spinal stenosis in cervical region documented in this encounter Care Teams Skidder Loader Relationship Specialty Start Date End Date Rosario Varela APRN [address] [place] [address] PCP - General Family Medicine 02/03/18 09/19/20 documented as of this encounter
--- OUTSIDE RECORDS SUMMARY | 2024-02-29 15:49 | XMS_ITS | Encounter Summary ---
Author Organization [facility] [place] [address] Care Team Providers Care V Belt Finisher Name Role Phone Rosario Varela APRN Primary Care Provider [phone] Encounter Details Date Type Department Care Team (Late st Contact Info) Description 03/12/2020 Tele[place] [address] Sonia Escalona APRN [facility] [place] [address] Social History Tobacco Use Types Packs/Day Years [...] Telephone Encounter - Sonia Escalona APRN - 03/12/2020 2:02 PM EST Left VM at home number to discuss message about belly pain for several days. We can get shunt series to check tubing. documented in this encounter Plan of Treatment Not on file documented as of this encounter Visit Diagnoses Not on filedocumented in this encounter Care Teams V Belt Finisher Relationship Specialty Start Date End Date Rosario Varela APRN [address] [place] [address] PCP - General Family Medicine 02/03/18 09/19/20 documented as of this encounter
--- OUTSIDE RECORDS SUMMARY | 2024-02-29 15:49 | XMS_ITS | Encounter Summary ---
Author Organization [facility] [place] [address] Care Team Providers Care Coat Maker Name Role Phone YajairaIrma LIZA Primary Care Provider [phone] Encounter Details Date Type Department Care Team (Late st Contact Info) Description 09/20/2020 Telephone [place] [address] Bernice Miranda Social History Tobacco Use Types Packs/Day Years [...] encounter Miscellaneous Notes * Telephone Encounter - Bernice Miranda - 09/26/2020 11:10 AM EDT NEW SURGERY DATE 10/18 THANK YOU BERNICE * Telephone Encounter - Bernice Miranda - 09/20/2020 11:07 AM EDT Yuan, Patient is scheduled to have surgery on 12/03/2020 and the packet has been mailed to the verified address on file. Follow up appointment is as follows: no follow up indicated in case Thank you!! documented in this encounter Plan of Treatment Not on file documented as of this encounter Visit Diagnoses Not on filedocumented in this encounter Care Teams Coat Maker Relationship Specialty Start Date End Date Irma Gates APRN [facility] [place] [address] [place] [address] PCP - General Family Medicine 09/20/20 08/20/22 documented as of this encounter
--- OUTSIDE RECORDS SUMMARY | 2024-02-29 15:49 | XMS_ITS | Encounter Summary ---
Author Organization [facility] [place] [address] Care Team Providers Care Client Service Administrator Name Role Phone Rosario Varela APRN Primary Care Provider [phone] Encounter Details Date Type Department Care Team (Late st Contact Info) Description 03/09/2020 [place] [address] Sonia Escalona PRINT LINE SUPERVISOR [facility] [place] [address] Social History Tobacco Use Types Packs/Day Years [...] Telephone Encounter - Sonia Escalona APRN - 03/09/2020 3:32 PM EST I called Ever's mother Selena in response to my message. I will request urgent follow up with pain clinic and follow up in clinic to discuss shunt/ surgical options for cervical stenosis. It does not appear that there is a proximal shunt malfunction and the NM scan showed shunt to be working. documented in this encounter Plan of Treatment Not on file documented as of this encounter Visit Diagnoses Not on filedocumented in this encounter Care Teams Client Service Administrator Relationship Specialty Start Date End Date Rosario Varela APRN [address] [place] [address] PCP - General Family Medicine 02/03/18 09/19/20 documented as of this encounter
--- OUTSIDE RECORDS SUMMARY | 2024-02-29 15:49 | XMS_ITS | Encounter Summary ---
Author Organization [facility] Richard [facility] [place] [address] Care Team Providers Care Airline Customer Service Agent Name Role Phone Ana Maria Gatesh LIZA Primary Care Provider [phone] Encounter Details Date Type Department Care Team (Latest Contact Info) Description 04/18/2022 3:00 PM EST Office [place] [address] Ness Vance STUDENT COUNSELOR [facility] [place] [place] [address] S/P SITE SUPERVISOR shunt; Communicating hydrocephalus Social History Tobacco Use Types Packs/Day [...] as of this encounter Progress Notes * Ness Vance APRN - 04/18/2022 3:00 PM EST Ever presents for shunt reprogramming following MRI knee earlier today. Usual setting 80 mm H20. Reprogramming of Programmable CSF Shunt Location Right temporal Codman Hakim Programmable valve identified. Valve adjusted with the White Source V[employer] [place] Tower Loader Unit. Pressure selected: 80 mmH2O Adjustment verified with process control programmer long beep and display ADJUSTMENT COMPLETE. documented in this encounter Plan of Treatment Not on file documented as of this encounter Visit Diagnoses Diagnosis S/P SITE SUPERVISOR shunt Presence of cerebrospinal fluid drainage device Communicating hydrocephalus documented in this encounter Care Teams Airline Customer Service Agent Relationship Specialty Start Date End Date Irma [place] [address] PCP - General Family Medicine 09/20/20 08/20/22 documented as of this encounter
--- OUTSIDE RECORDS SUMMARY | 2024-02-29 15:49 | XMS_ITS | Encounter Summary ---
Author Organization [facility] Address [facility] [place] [address] Care Team Providers Care Chef De Partie Name Role Phone Irma Gates APRN Primary Care Provider Encounter Details Date Type Department Care Team (Late st Contact Info) Description 10/18/2021 Transcribe Orders eDH Incoming Referrals [phone] Irma Gates APRN [address] [place], [place] [id number] Social History Tobacco Use Types Packs/Day Years [...] on filedocumented in this encounter Care Teams Chef De Partie Relationship Specialty Start Date End Date Irma Gates APRN [address] [place], [place] [address] PCP - General Family Medicine 09/20/20 08/20/22 documented as of this encounter
--- OUTSIDE RECORDS SUMMARY | 2024-02-29 15:49 | XMS_ITS | Encounter Summary ---
Author Organization [facility] [place] [address] Care Team Providers Care Personnel Security Specialist Name Role Phone Rosario Varela APRN Primary Care Provider [phone] Encounter Details Date Type Department Care Team (Late st Contact Info) Description 01/31/2020 3:30 PM EST TH Visit (TeleHealth) [place] [id number] Sonia Escalona APRN [facility] [place] [address] S/P EDUCATION TRAINER shunt; Cervicalgia Social History Tobacco Use Types Packs/Day [...] as of this encounter Progress Notes * Sonia Escalona APRN - 01/31/2020 3:30 PM EST Chapin Costa is a 49 yo male with a history of a VPS for congenital aqueductal stenosis, pseudoseizures, depression, cervical stenosis and chronic headaches. I saw Mr. Costa on 12/06/19 when he presented with frontal headaches and right sided neck pain, and scalp tenderness along the shunt tract. Please refer to that note for detailed history. I called him today in follow up s/p NM patency scan. The NM scan showed that the shunt is patent astracer activity was present in the tubing in the area of the calvarium and right neck and was also seen within abdomen within 60 minutes and again on 4 hour delayed images. There is some question about proximal patency, however, since Dr. Anderson was not easily able to freely withdraw fluid from shunt r eservoir. Per his note a small amount of CSF was able to be drawn into a 10cc syringe, however there did not appear to be free flow. I discussed these results with Chapin. At his last visit he also complained of neck pain, especially on the right side. He had a cervical MRI in 2018 showing a large disc protrusion at C67 resulting in moderate to severe stenosis at C6-7 and severe right sided foraminal stenosis at this level. I ordered a cervical flexion/extension xray at last visit to check alignment, and this showed some mild instability ( 3mm) at C45. He also has R>L facet arthropathyin the cervical spine. Over the phone, Chapin tells me that his headaches right now are not too bad. He rates them at between 3-4/10. He describes them as non-positional and today he describes them as being in the back of his head. He reports neck pain of about 6/10. He reports some weakness with R sustainability coordinator, however, he denies radiating arm pain, numbness or tingling in arms, hands. He denies weakness or balance problemsand denies falls. I had placed a referral to pain clinic for neck pain after last visit and he was evaluated there recently and will be potentially having trigger point injections and or facet blocks in the future. Chapin has had neck pain that often accompanies his headaches. I discussed with Chapin that although we now have established shunt patency from valve into the abdominal cavity there remains a question about proximal shunt patency. He is scheduled to follow up with ophthalmology with Dr. Ennis in April 2020 to evaluate for papilledema. I think we should try another shunt tap in clinic. I think there that cervical stenosis and instability at C45 could also be contributing to his neck pain and headaches. I think he should also proceed with injections in pain clinic in the form of trigger point or medial branch blocks. He would like to proceed with both, preferably on the same day. We will try arrange scheduling for these on a Thursday. Although he he does not appear to have symptoms or clinical signs of cervical myelopathy, there is a chance that some component of his headaches may be related may be related to cervical stenosis and will also have him scheduled follow up with Dr. Almanza if there is no proximal shunt malfunction. Plan Please schedule follow up in clinic (on day with DPS present - for shunt tap) Would like to do this on same day as follow up with pain clinic if possible Will follow up with ophthalmology in April documented in this encounter Plan of Treatment Not on file documented as of this encounter Visit Diagnoses Diagnosis S/P EDUCATION TRAINER shunt Presence of cerebrospinal fluid drainage device Cervicalgia documented in this encounter Care Teams Personnel Security Specialist Relationship Specialty Start Date End Date Rosario Varela APRN [address] [place] [address] PCP - General Family Medicine 02/03/18 09/19/20 documented as of this encounter
--- OUTSIDE RECORDS SUMMARY | 2024-02-29 15:49 | XMS_ITS | Encounter Summary ---
[place] [address] Care Team Providers Care Linux Systems Analyst Name Role Phone Rosario Varela APRN Primary Care Provider [phone] Encounter Details Date Type Department Care Team (Late st Contact Info) Description 02/02/2020 Telephone [place] [address] Rhoda Zapata Social History Tobacco Use Types Packs/Day Years [...] encounter Miscellaneous Notes * Telephone Encounter - Erik Copeland - 02/22/2020 1:29 PM ESTSummary: Patient now scheduled for proximal shunt eval. Patient called to schedule his shunt evaluation with DPS. Scheduled for next available on 03/08/20 at 3:30 PM. * Telephone Encounter - Madina Abdalla - 02/21/2020 11:35 AM EST Spoke with patient's mom, Tracy, and she advised to call other guardian, Amando Garcia. Left message for Amando to call back to schedule. Per [facility], schedule with DPS for proximal shunt eval. Once scheduled, notify [facility] so she can try to behere. * Telephone Encounter - Madina Abdalla - 02/21/2020 11:15 AM EST Sonia, Do you want to see this patient or just DPS? We won't have a day when both of you are in clinic since he is working from home on Tuesdays now. Please advise. Thank you, Coco * Telephone Encounter - Rhoda Zapata - 02/02/2020 9:12 AM EST Patient needs f/u appointment(s): With [facility] [DPS day] on/around next availabel next available OV, s/p ARTILLERY MAINTENANCE SUPERVISOR shunt, no imaging 1. Coordinate f/u w Pain Clinic appt 2. Coordinate f/u w DPS - Thursday ~~~~~~~~~~~~~~~~~~~~~~~~~~~~~~~~~~~~~~~~~~~~~~~~~~~~~~~~~~~~ Sonia Escalona APRN Sent: ThuFebruary 02, 2020 ??7:57 AM To: P [facility] Sewer Inspector ?? Follow-up and Dispositions Check-out Note: Plan Please schedule follow up in clinic [...] on filedocumented in this encounter Care Teams Linux Systems Analyst Relationship Specialty Start Date End Date Rosario Varela APRN [address] [place] [address] PCP - General Family Medicine 02/03/18 09/19/20 documented as of this encounter
--- OUTSIDE RECORDS SUMMARY | 2024-02-29 15:49 | XMS_ITS | Encounter Summary ---
Author Organization [facility] [place] [address] Care Team Providers Care Manager Agency Name Role Phone Rosario Varela APRN Primary Care Provider [phone] Encounter Details Date Type Department Care Team (Late st Contact Info) Description 03/12/2020 [place] [address] Sonia Escalona LOGISTICS PROJECT MANAGER [facility] [place] [place] [address] Social History Tobacco Use Types Packs/Day Years [...] Encounter - Sonia Escalona APRN - 03/12/2020 2:12 PM EST I called Chapin back today. He states for several weeks he has experienced some sharp pain in abdomen to the right of umbilicus. He also states it seems worse about 1/2 hour after eating. Has had some problems with diarrhea but not daily as well as some intermittent nausea. I told him he should see his PCP to see whether he may have some gastritis or other GI issue, but will be glad to check for any kink or abnormality in shunt tubing. He would like x-rays to be done at [facility]. He will see his PCP in the next few days. documented in this encounter Plan of Treatment Not on file documented as of this encounter Visit Diagnoses Diagnosis S/P PECAN PICKER shunt Presence of cerebrospinal fluid drainage device documented in this encounter Care Teams Manager Agency Relationship Specialty Start Date End Date Rosario Varela APRN [address] [place] [address] PCP - General Family Medicine 02/03/18 09/19/20 documented as of this encounter
--- OUTSIDE RECORDS SUMMARY | 2024-02-29 15:49 | XMS_ITS | Encounter Summary ---
Author Organization [facility] [place] [address] Care Team Providers Care Mold Tooler Name Role Phone Rosario Varela APRN Primary Care Provider [phone] Reason for Visit * Consultation (Routine) - Closed Specialty Diagnoses / Procedures Referred By Mansi cooley Referred To Contact Maxillofacial Surgery Diagnoses full mouth extraction 04/19/19 PANO [place] [address] [facility] Maxillo Surg [address] [place] [id number] Referral ID Status Reason Start Date Expiration Date Visits Re quested Visits Authorized [id number] Closed 03/23/2020 03/23/2021 1 1 Encounter Details Date Type Department Care Team (Late st Contact Info) Description 09/06/2020 2:30 PM EDT Office Visit [place] [address] Frank Schwarz MD [facility] [place] [address] Dental caries Social History Tobacco Use Types Packs/Day Years [...] Sign Reading Time Taken Comments Blood Pressure - - Pulse - - Temperature - - Respiratory Rate - - Oxygen Saturation - - Inhaled Oxygen Concentration - - Weight 90.7 kg (200 lb) 09/06/2020 2:32 PM EDT Height 167.6 cm (5' 6) 09/06/2020 2:32 PM EDT Body Mass Index 32.28 09/06/2020 2:32 PM EDT documented in this encounter Progress Notes * Prem Cole PA - 09/06/2020 2:30 PM EDT Images from the original note were not included. ORAL-MAXILLOFACIAL SURGERY OUTPATIENT CLINIC INITIAL VISIT Name: Chapin Costa Age/Sex: 49 y.o. male History of Present Illness Chapin Costa is a 49 y.o. male referred by Polo Hampton for consultation regarding extractions of remaining teeth. A complete history of the Chapin 's symptoms and physical signs were reviewed with attention to initial findings and progression, pain, bleeding, swelling, lumps, bumps, drainage, dysphagia, odynophagia, paresthesia, dysarthria and systemic effects. Pertinent notations from today's history: Consult for full mouth extractions Bottom teeth are painful top ones aren't as painful Pain is intermittent, waxing and waning intensity Extensive surgical history from a neurosurgical standpoint has had multiple ventriculoperitoneal shunt revisions dating back to 2 months of age Reportedly he has tolerated prior anesthesia well without complications. Most recent procedure was a right arm surgery at [facility] very a few years ago Reportedly does have some degree of short term memory loss in setting of neurosurgical procedures Denies smoking or alcohol consumption Allergies include penicillin resulting in rash, vancomycin resulting in hives. Tolerates clindamycin okay Denies prior radiation to mouth, denies bisphosphonate use history Tylenol and motrin for pain and it does not help Tooth on bottom front that is loose Dentist Dr. Hampton Past Medical/Social/Dental History Past Medical History: Diagnosis Date ??? Depression ??? Hearing loss r ear ??? Hydrocephalus associated with congenital aqueduct stenosis ??? Hyperlipidemia ??? Hypertension ??? Memory disorder ??? Seizures ??? Syncope and collapse ??? Vision abnormalities related to hydrocephalus Patient Active Problem List Diagnosis Code ??? S/P FEATHERER shunt Z98.2 ??? Persistent headaches R51.9 ??? Headache R51.9 ??? Cervicalgia M54.2 ??? Seizures R56.9 ??? Hydrocephalus G91.9 Social History Tobacco Use ??? Smoking status: Never Smoker ??? Smokeless tobacco: Never Used Substance Use Topics ??? Alcohol use: No ??? loratadine (Claritin) 10 mg Tablet ??? benztropine (Cogentin) 0.5 mg Tablet ??? ibuprofen (Advil;Motrin) 600 mg Tablet ??? acetaminophen (Tylenol) 500 mg Tablet ??? Latuda 40 mg Tablet ??? meloxicam (MOBIC) 15 mg Tablet ??? rizatriptan (MAXALT) 10 mg Tablet ??? metoprolol succinate XL (Toprol-XL) 25 mg Tablet Sustained Release 24 hr ??? topiramate (TOPAMAX) 25 mg Tablet ??? amitriptyline (ELAVIL) 25 mg Tablet ??? gabapentin (NEURONTIN) 100 mg Capsule ??? levothyroxine (SYNTHROID) 25 mcg Tablet ??? sertraline (ZOLOFT) 100 mg Tablet ??? testosterone cypionate (DEPOTESTOSTERONE CYPIONATE) 200 mg/mL Oil ??? gemfibrozil (LOPID) 600 mg Tablet ??? acetaZOLAMIDE (Diamox) 250 mg Tablet ??? ketoconazole (NIZORAL) 2 % Cream ??? tiZANidine (Zanaflex) 2 mg Tablet ??? risperiDONE (RisperDAL) 0.5 mg Tablet ??? sucralfate (Carafate) 1 gram Tablet Allergies Allergen Reactions ??? Latex Other reaction(s): hives with latex powdered gloves ??? Penicillins ??? Tegaderm [Transparent Dressings] Itching ??? Vancomycin Analogues ??? Vancomycin Hcl Review of Systems Pertinent positive and negative findings discussed above. ROS with attention to cardiac, pulmonary,hepatic, renal, neurologic and dermatologic systems reviewed with relevant findings as noted. Physical Exam Vitals: Height 167.6 cm (5' 6), weight 90.7 kg (200 lb). Body mass index is 32.28 kg/m??. Extraoral exam conducted including facial symmetry, sensory and motor function, alertness and appropriateness to questions and commands, range of jaw motion, TMJ function and skeletal architecture. Neck exam conducted with attention to normal musculature, vasculature and potential adenopathy. Intraoral exam including evaluation of tongue surface and consistency, floor of mouth, buccal and labial mucosa as well as maxillary and mandibular vestibules, hard and soft palate including soft palate elevation and oropharynx as well as dentition, dental arches, occlusion and salivary flow. General: No acute distress, pleasant Focused oral exam: No trismus No oral lesions visualized Visible dentition is in poor repair with rampant obvious caries. Generalized gingival recession Decreased prominence of right mandibular alveolar ridge Mobility of #24 No visible 3rd molars Neuro: a/o x3 Neck: soft, supple Psych: appropriate, responds to questions normally Imaging Panorex taken today. This was compared with prior Panorex from 03/2019. Teeth #23, 22, 21, 6 have been extracted in the interim. Decrease in volume of right mandible where he is partially edentulous. Complete bony impacted #17,32. The crowns of #17,32 are nonerupted clinically but appear to have migrated through cortex with possible lucency around crown of #32. Personally reviewed and evaluated ASSESSMENT & RECOMMENDATIONS Assessment: -failed dentition, extensive caries -complete bony impacted #17,32 Recommendations/plan: We will plan for extraction of remaining dentition in the setting of the above. Given the violationof the mandibular cortex #17 and 32 likely make sense to extract as well, patient and mother were agreeable. After discussion of risks/benefits, options of local versus IV sedation versus general anesthesia, we will plan for general anesthesia given the amount of teeth to be extracted and has tolerated anesthesia well historically. I did encourage them to contact her dentist when a surgical date is set to discuss denture options (immediate vs. allowing to heal) and planning. Due to clinic flow patient was not able to be evaluated by Dr. Schwarz during initial consult, though radiograph and presentation were reviewed and agreeable with plan. Consents (procedure, opioid) signed. NPO instructions were reviewed. Direct review of the findings on clinical and radiographic exam as well as a discussion of the risks and anticipated benefits of the proposed surgical intervention was had. The possibility of bleeding, infection, injury to adjacent teeth, nerves and sinuses was reviewed with specific attention to inferior alveolar and lingual nerves and the potential for tongue and/or lip paresthesia. The unlikely event of jaw fracture during the procedure was discussed as well. Persistent opening or fistula tothe maxillary sinus was also discussed. Chapin Costa was given the opportunity to ask questions regarding the findings on clinical and radiographic examination and the recommended treatment. Preoperative and postoperative managementwas also discussed with specific attention to post operative alteration of diet and physical activity and the proper use of analgesics. We appreciate the opportunity to be involved in Mr. Costa's care. [facility] - Oral-Maxillofacial Surgery Supervising Physician: Frank Schwarz MD,DMD 09/06/2020 4:38 PM This note may have incorporated [id number] technology and though reviewed typographical or syntax errors may remain. documented in this encounter Plan of Treatment Not on file documented as of this encounter Visit Diagnoses Diagnosis Dental caries Unspecified dental caries documented in this encounter Care Teams Mold Tooler Relationship Specialty Start Date End Date Rosario Varela APRN [address] [place] [address] PCP - General Family Medicine 02/03/18 09/19/20 documented as of this encounter
--- OUTSIDE RECORDS SUMMARY | 2024-02-29 15:49 | XMS_ITS | Encounter Summary ---
Author Organization [facility] [place] [address] Care Team Providers Care Boiler/Chiller Operator Name Role Phone Rosario Varela APRN Primary Care Provider [phone] Reason for Referral * Consultation (Routine) - Closed Specialty Diagnoses / Procedures Referred By Contac t Referred To Contact Neurology Diagnoses Chronic intractable headache, unspecified headache type Hydrocephalus, unspecified type Mary Dumas PA [facility] [place] [place] [address] [place] [address] Referral ID Status Reason Start Date Expiration Date V isits Requested Visits Authorized [id number] Closed Consult, Test & Treat 05/01/2020 05/01/2021 1 1 Reason for Visit * Reason Comments Advice Only worsening neck pain headaches, history of cervical stenosis Encounter Details Date Type Department Care Team (Late st Contact Info) Description 04/30/2020 2:00 PM EST Office Visit Neurosurgery at [facility] [place] [address] Anoop Almanza MD Chronic intractable headache, unspecified headache type; Hydrocephalus, unspecified type Social History Tobacco Use [...] Sign Reading Time Taken Comments Blood Pressure 142/76 04/30/2020 1:31 PM EST Pulse 99 04/30/2020 1:31 PM EST Temperature 36.6 ??C (97.9 ??F) 04/30/2020 1:31 PM ES T Respiratory Rate - - Oxygen Saturation - - Inhaled Oxygen Concentration - - Weight - - Height - - Body Mass Index - - documented in this encounter Progress Notes * Mary Jessica PA - 04/30/2020 2:00 PM EST [facility] Neurosurgery Clinic H&P- cervical spine Subjective: Chapin Costa is a 49 y.o. Presenting for worsening headaches. He has a hx of a VPS for congenital aqueductal stenosis, pseudoseizures, depression, cervical stenosis??and chronic headaches. Main concern is frontal headache and headache pain at site of cathter. He notes tenderness at catheter site. Shunt patency studies showing no blockage. He denies any further abdominal pain, and tubing with correct placement on last imaging. He describes headaches as a vice like squeezing pain almost daily. He states these headaches make him feel nauseous and on occasion vomits. This has significantly decreased his appetite. He states when headaches are severe, he will get a 'floater' in his right eye. This typically occurs while trying to read or look at his tablet. He does feel his headaches are worse with lying down and lessen in severity with standing or being upright. He states he feels overall more fatigued throughout the day. He denies any LE issues, and balance he feels is steady. Denies bowel or bladder changes. Objective: Exam: Constitutional: Well developed, well nourished, in NAD. ?? Neuro: Mental Status/Cognitive: Awake, alert, answers questions appropriately. Cranial Nerves: CN II - Vision grossly intact, PERRLA - OD Exotropia CN III, IV, - EOMI - difficulty with upward gaze. CN V - V1-3 dermatomes intact to light touch CN VII - No facial asymmetry CN VIII - Hearing intact to limited bedside exam CN IX, X - Uvula midline CN XI - Shoulder shrug 5/5 bilaterally CN XII - Tongue midline Motor: Normal muscle bulk and tone. No pronator drift. Strength 5/5 throughout all muscle groups inall four extremities. Sensory: Sensation grossly intact to light touch in all four extremities. Cerebellar: No dysmetria with finger to nose testing bilaterally Gait: Steady gait ; mild difficulty with tandem walk. Reflexes: DTRs 2+ symmetric throughout. ?? Tenderness to palpation over shunt valve and tubing in right neck. No skin breakdown or sign of infection appreciated. Gait: Steady Cervical Tenderness: Cervical Paravertebral Spasm: Cervical range of motion: Motion Normal (degrees) Patient Flexion 50 50 Extension 60 50 Left Lateral Flexion 45 45 Right Lateral Flexion 45 45 Left Rotation 80 80 Right Rotation 80 80 Motor exam: Motor Strength: Test Muscle Nerve Root Right Left Arm abduction >90 Trapezius spinal accessory plus roots CN X1, C3,4 5 5 Arm abduction 30 to 90 Deltoid axillary C5 5 5 Arm abduction 0 to 30 Supraspinatus suprascapular C456 5 5 Elbow flexion Biceps musculocutaneous C56 5 5 Wrist Extension E. carpi radialis radial C56 5 5 Forearm Extension Triceps radial C678 5 5 Wrist Flexion/Globe Changer F. carpi radialis F. carpi ulnaris P.Longus FDS/FDP ulnar C8 5 5 Finger Spread interossei ulnar C8T1 5 5 Reflexes: Test Root/Syndrome Right Left Biceps C56 2 2 Brachioradialis C56 2 2 Triceps C678 2 2 Sensation: (Light Touch and Pin) Reported percent of normal Location Root Nerve Right Left shoulder C5 axillary 100 100 Forearm Thumb C6 median 100 100 Middle finger C7 radial 100 100 Fourth and Fifth C8 ulnar 100 100 Studies Reviewed: See HPI Assessment: 49 yo male presenting for worsening headaches. His mother is concerned it is related to his shunt, or possibly from multiple headache medications he is utilizing. He has not seen neurology for headaches since 2019, and we discussed following up to evaluate appropriateness of his current medication regimen and make any adjustments or recommendations as they feel appropriate. Plan: Diamox 250 bid x 14 days to see if csf pressure changes headaches. Headache clinic to evaluate medication regimen and make changes as appropriate. He does need routine shunt followup every two years at a minimum Head CT and shunt plain films - can be midlevel appointments but should be monitored routinely. I spent 20 minutes of this 30 minute encounter in face to face contact counseling the patient and his mother regarding treatment options and addressing specific questions. They indicated they had no further questions at this time and were pleased with the appointment. Anoop Almanza MD MS Professor and Chair Section of Neurosurgery Department of Surgery [facility] documented in this encounter Plan of Treatment Scheduled Referrals Name Type Priority Associated Diagnoses Orde r Schedule Referral to Neurology Outpatient Referral Routine Chronic intractable headache, unspecified headache type Hydrocephalus, unspecified type Ordered: 05/01/2020 documented as of this encounter Visit Diagnoses Diagnosis Chronic intractable headache, unspecified headache type Hydrocephalus, unspecified type documented in this encounter Care Teams Boiler/Chiller Operator Relationship Specialty Start Date End Date Rosario Varela APRN [address] [place] [address] PCP - General Family Medicine 02/03/18 09/19/20 documented as of this encounter
--- OUTSIDE RECORDS SUMMARY | 2024-02-29 15:49 | XMS_ITS | Encounter Summary ---
[facility] Organization [facility] [place] [address] Care Team Providers Care Systems Analyst Engineer Name Role Phone Rosario Varela APRN Primary Care Provider [phone] Encounter Details Date Type Department Care Team (Late st Contact Info) Description 05/07/2020 [place] [address] Madina Abdalla Social History Tobacco Use Types Packs/Day Years [...] Miscellaneous Notes * Telephone Encounter - Madina Abdalla - 05/07/2020 3:07 PM EDT Pt's mom called in to request that referral for Neurology be sent to [facility]. Updated referral and faxed referralmaylin last office note to [facility] at [phone]. documented in this encounter Plan of Treatment Not on file documented as of this encounter Visit Diagnoses Not on filedocumented in this encounter Care Teams Systems Analyst Engineer Relationship Specialty Start Date End Date Rosario Varela APRN [address] [place] [address] PCP - General Family Medicine 02/03/18 09/19/20 documented as of this encounter
--- OUTSIDE RECORDS SUMMARY | 2024-02-29 15:49 | XMS_ITS | Encounter Summary ---
Author Organization [facility] Address [facility] [place] [address] Care Team Providers Care Nursing Specialist Name Role Phone JoséIrma vicente LIZA Primary Care Provider [phone] Encounter Details Date Type Department Care Team (Late st Contact Info) Description 10/18/2020 10:01 AM EDT - 10/18/2020 2:55 PM EDT Hospital Encounter [place] [id number] Shan Rivero MD [facility] [place] [address] Dental caries Discharge Disposition: Home Social History Tobacco Use [...] Sign Reading Time Taken Comments Blood Pressure 148/99 10/18/2020 2:45 PM EDT Pulse 93 10/18/2020 2:45 PM EDT Temperature 36.2 ??C (97.2 ??F) 10/18/2020 1:33 PM ED T Respiratory Rate 16 10/18/2020 2:30 PM EDT Oxygen Saturation 95% 10/18/2020 2:45 PM EDT Inhaled Oxygen Concentration - - Weight 88.5 kg (195 lb) 10/18/2020 10:11 AM EDT Height 167.6 cm (5' 6) 10/18/2020 10:11 AM EDT Body Mass Index 31.47 10/18/2020 10:11 AM EDT documented in this encounter Discharge Instructions * Patient Instructions* Shan Rivero MD - 10/18/2020 10:29 AM EDT Images from the original note were not included. On the Day of Surgery: DO NOT rinse your mouth, smoke, or use a straw when drinking. Any of these could cause you to bleed more. You should remain at home, rest, and avoid alcoholic beverages. Discomfort: It is not uncommon for you to have some discomfort following a surgical procedure. Thisdiscomfort may last for three days or more. Pain relievers such as ibuprofen or Tylenol (acetaminophen) may be taken - please follow the directions on the bottle. If a narcotic is prescribed, take this only as needed. Narcotic drugs may cause nausea. DO NOT take them on an empty stomach, and DO NOTdrive or consume alcohol while on narcotics. If prescribed Vicodin, usual dosage is 1-2 tablets every 4-6 hours as needed for pain. Total daily dosage SHOULD NOT EXCEED 8 tablets. If you decide to take the Vicodin, do not take Tylenol (acetaminophen) with it as Vicodin contains Tylenol. Other discomforts you may experience include: slight earache, sore throat, numbness or tingling in the lips or chin, aches in other teeth, and tightness of the jaw muscles. Bleeding: It is normal for the extraction site to bleed post-operatively. If bleeding continues, place gauze directly over the socket and bite down gently, but firmly, for 20 minutes. Repeat this process as needed. If bleeding is heavy, keep head elevated or sit upright, avoid exercise, hot liquids, smoking, and drinking from straws. If the bleeding does not stop with pressure, try a lukewarm, damp tea bag in place of the gauze for another 20 minutes. The tea bag will help to form blood clotsand stop the bleeding. If bleeding continues, call your doctor. Swelling: To reduce immediate swelling after your procedure, apply an ice pack, with pressure, to the face over the area of the procedure. Ice should be applied for 15-20 minutes at a time, for the first 24 hours. After 24 hours, a moist warm compress may be helpful. Most swelling will occur [id number] hours following the procedure. Mouth Rinse: Vigorous mouth washing may cause bleeding to begin again if clots are not formed. DO NOT RINSE on the day of surgery. Begin rinsing one day after the procedure very gently with warm saltwater (1/2 teaspoon per 8 oz. warm water). Continue rinsing 3-6 times a day for several days. This will keep surgical sites clean and will help with healing. Diet: It is best to eat light, soft foods, and drink plenty of liquids following a surgical procedure. Foods like, yogurt, pasta, eggs, soups, and ice cream are good choices. Avoid hot liquids for 24hours after tooth extraction. Avoid foods that are difficult to chew. Once chewing becomes easier, you may return to your normal diet. In General: If stitches are used, they will dissolve or unravel in about three days to one week. Avoid strenuous exercise, such as jogging and contact sports for at least one week following surgery. Swelling is usually most extensive 24- 48 hours following surgery, and usually takes 4-5 days to subside. Sockets can take 4-6 weeks to heal, and often heal from the inside out. It may take 10-14 days before you feel like your normal self again. Infection: Can occur at any time, but it is evident more often 4-7 days after a procedure. Please contact us at the numbers below if you have one or more of the following: ? Temperature elevation greater than 100.5 ? Worsening swelling after the initial 48 hour period ? Severe and worsening pain ? Pus or other foul drainage from the extraction site ? Foul smell or taste coming from the extraction site ? Generalized body chills or fever The Oral Surgery staff can be reached during office hours at [phone] or [phone]. If you have questions at night or on weekends please contact the resident covering the ENT service through the hospital miter operator. Using A Syringe If you were given a syringe, we recommend that you start to use this syringe on post-operative day 5. The day of your surgery is day zero. We require this waiting period to avoid dry sockets, which can occur during the first few days after the extractions. The syringe is used to flush food and debris from the extraction sites. Infections can occur if food stays trapped in these sockets. The syringe should be used as follows: ??? Start using the syringe on day five. Procedure day is considered day zero. ??? The syringe is to be used on lower extraction areas ONLY. ??? Fill the syringe with the prescription mouthwash (Chlorhexidine) or with salt water (1tsp of salt per 8oz of water), then insert the curved tip down into the extraction hole and push the liquid out of the syringe. One full syringe should be used in each lower extraction area. It is very important to make sure that the tip is penetrating down into the extraction socket when you flush the site.If the tip is only on the surface of the gum tissue then the food and debris will not be flushed out. ??? The syringe should be used 2-3 times per day or until you can no longer fit the syringe into the extraction area. Everyone is different when it comes to healing time for the extraction sockets. You may have holes in the lower extraction sites for longer than a month. documented in this encounter Medications at Time of Discharge Medication Sig Dispensed Refills Start Date End Date levothyroxine (SYNTHROID) 25 mcg Tablet Take 25 mcg by mouth nightly. sertraline (ZOLOFT) 100 mg Tablet Take 150 mg by mouth daily. 0 03/19/2018 testosterone cypionate (DEPOTESTOSTERONE CYPIONATE) 200 mg/mL Oil Inject 250 mg into the muscle every 14 days. 0 05/03/2018 oxyCODONE (Roxicodone) 5 mg Tablet Take 1 tablet by mouth every 4 hours as needed for Pain. 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 05/24/2022 documented as of this encounter Progress Notes * Silvia Denny RN - 10/18/2020 4:07 PM EDT Pt arrived to Recovery sedated with nasal trumpet in L nare, loose gauze packing at extractions sites with some bloody drainage. Pt slowly awakened, reported pain 3-4/10, denied nausea. Ibuprofen 800mg PO given; pt tolerated PO liquids. Pt's mother Tracy to bedside, all D/C instructions reviewed; both pt and mother verbalized understanding. Pt dressed, ambulated to bathroom, voided. Fresh ice packs, gauze supplied for ride home. Patient ambulated to car for discharge accompanied by [facility] staffmember. * Bela Richmond RN - 10/11/2020 2:51 PM EDT Patient states that they and their escort for the day of surgery have had the Covid vaccine. They also deny any fever, cough, SOB or any other illness in the last 14 days. Patient informed of procedure to be followed upon arrival to the [facility]. 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 documented in this encounter H&P Notes * Shan Rivero MD - 10/18/2020 10:24 AM EDT Patient Name: Chapin Costa Patient Age: 49 y.o. Birthdate: 1970 Admit date: 10/18/2020 Attending Physician: Shan Rivero MD See original consult notew for referral and clinical findings. Oral exam reviewed today; his symptoms are primarily in the mandible. He will be getting impressions for dentures after about three months. No new allergies, Just completed a course of clindamycin for dental infection. documented in this encounter Miscellaneous Notes * Op Note - Shan Rivero MD - 10/18/2020 11:15 AM EDT [facility] Operative Note Patient Name: Chapin Costa : [id number] MR#: [id number] Case Date: 10/18/2020 Surgeon: Surgeon(s) and Role: * Shan Rivero MD - Primary Preoperative diagnosis: dental caries Postoperative diagnosis: dental caries Procedure(s) (LRB): SURGICAL EXTRACTIONS REQUIRING ELEVATION OF MUCOPERIOSTEAL FLAP AND REMOVAL OF BONE OR SECTION OF TOOTH (WRVU 1.09) (Bilateral) SURGICAL EXTRACTIONS, REMOVAL OF IMPACTED TOOTH, COMPLETELY BONY (WRVU 1.93) (N/A) EXTRACTION, ERUPTED TOOTH OR EXPOSED ROOT (WRVU 0.62) (N/A) SURGICAL EXTRACTIONS, REMOVAL OF IMPACTED TOOTH, COMPLETELY BONY WITH UNUSUAL SURGICAL COMPLICATIONS (WRVU 2.91) (N/A) ALVEOPLASTY,IN CONJUNCTION WITH EXTRACTIONS,PER QUADRANT,ENT (WRVU 4.06) (N/A) Anesthesia: General Estimated Blood Loss: * No values recorded between 10/18/2020 11:15 AM and 10/18/2020 1:16 PM * Specimens removed during surgery: None Drains: * [...] details pertinent to this patient.) HPI/Surgical Indications: multiple carious and impacted teeth Procedure Description: Chapin Costa was brought to the operating room and placed under general anesthesia via nasoendotracheal tube. Appropriate monitors were placed and the patient's positionwas checked and all prominent bony locations padded. The patient was then prepped and draped in thestandard fashion for behavioral health worker. The oral cavity was suctioned and an oral pharyngeal pack was placed. 10 cc's of 1% Xylocaine with 1-200,000 epinephrine was used to infiltrate the surgical sites. Routine extraction of teeth # 4, 5, 8, 9, 10, 11, 25 and 26 requiring the use of elevators and forceps. Surgical extractions requiring incision and reflection of mucoperiosteum and removal of bone or division of teeth : #'s 2, 3, 14 and 19. Tooth #32: Complete Bony Impaction: A # 15 surgical blade was used to incise the soft tissue overlying the complete bony impacted tooth. Mucoperiosteum was then reflected and bone overlying the toothand in the tooth's perimeter was removed with the [place] drill. The tooth was then divided into multiple fragments to facilitate its removal and the segments were extracted. The extraction site was then curetted and irrigated and the soft tissue coapted with 3-0 chromic catgut suture. gelfaom was also applied. Tooth #17 Complete Bony Impaction with increased difficulty requiring multiple sections due to its orientation as well as its proximity to the nerve canal.: A # 15 surgical blade was used to incise the soft tissue overlying the complete bony impacted tooth. Mucoperiosteum was then reflected and bone overlying the tooth and in the tooth's perimeter was removed with the [place] drill. The tooth wasthen divided into multiple fragments to facilitate its removal and the segments were extracted. Theextraction site was then curetted and irrigated and the soft tissue coapted with 3-0 chromic catgutsuture.\ Gelfoam was also applied. Alveoplasties were performed in all four quadrants with the use of rongeurs and bone files following the incision and reflection of mucoperiosteum. Running and interupted 3-0 chromic sutures were used to coapt the mucosa and close the surgical sites. No evidence of injury to the sinuses or inferior alveolar nerve noted. The oral cavity was then carefully suctioned and the oral pharyngeal pack was removed. The patient was awakened, extubated and brought to the recovery room in satisfactory condition having tolerated the procedure well with a minimum of blood loss. Infection Bundle used? No Attestation: Case Date: 10/18/2020 I performed this procedure without the involvement of a resident. SHAN RIVERO MD 10/18/2020 documented in this encounter Plan of Treatment Not on file documented as of this encounter Procedures Procedure Name Priority Date/Time Associated Diagnosis Comments KAVIN EXTRACT IMPACTED TOOTH,COMPLETELY BONY W UNUSUAL SURG COMPL Routine 10/18/2020 12:17 PM EDT Dental caries ALVEOPLASTY,IN CONJUNCTION WITH EXTRACTIONS,PER QUADRANT,ENT Routine 10/18/2020 12:17 PM EDT Dental caries EXTRACTION, ERUPTED TOOTH OR EXPOSED ROOT Routine 10/18/2020 12:17 PM EDT Dental caries ALVEOPLASTY,IN CONJUNCTION WITH EXTRACTIONS,PER QUADRANT,ENT (WRVU 3.19) Yes 10/18/2020 10:51 AM EDT Dental caries SURGICAL EXTRACTIONS, REMOVAL OF IMPACTED TOOTH, COMPLETELY BONY WITH UNUSUAL SURGICAL COMPLICATIONS (WRVU 2.91) Yes 10/18/2020 10:51 AM EDT Dental caries EXTRACTION, ERUPTED TOOTH OR EXPOSED ROOT (WRVU 0.62) Yes 10/18/2020 10:51 AM EDT Dental caries SURGICAL EXTRACTIONS, REMOVAL OF IMPACTED TOOTH, COMPLETELY BONY (WRVU 1.93) Yes 10/18/2020 10:51 AM EDT Dental caries SURGICAL EXTRACTIONS REQUIRING ELEVATION OF MUCOPERIOSTEAL FLAP AND REMOVAL OF BONE OR SECTION OF TOOTH (WRVU 1.09) Yes 10/18/2020 10:51 AM EDT Dental caries SURG EXTRAC REQUIR ELEVAT MUCPERISTEAL FLAP/MOISES BONE/SECT TOOTH Routine 10/18/2020 10:03 AM EDT Dental caries SURGICAL EXTRACTIONS,REMOVAL OF IMPACTED TOOTH,COMPLETELY BONY Routine 10/18/2020 10:03 AM EDT Dental caries documented in this encounter Visit Diagnoses Diagnosis Dental caries Unspecified dental caries documented in this encounter Administered Medications Inactive Administered Medications - up to 3 most recent administrations Medication Order MAR Action Action Date Dose Rate Site acetaminophen (Tylenol) tablet 1,000 mg 1,000 mg, Oral, ONCE, 1 dose, On Sandra 10/18/20 at 1030, Administer with SIP of H2O only., Day of Surgery (Day of Procedure), Routine Given 10/18/2020 10:26 AM EDT 1,000 mg ibuprofen (Advil) tablet 800 mg 800 mg, Oral, EVERY 8 HOURS PRN, Starting on Sandra 10/18/20 at 1027, Until Sandra 10/18/20 at 1813, Pain, May be given concomitantly with other analgesia. If both acetaminophen and ibuprofen ordered, please give acetaminophen first for pain. If pain not relieved in 30 minutes may administer ibuprofen, if ordered. Administer orally with milk or food to minimize GI irritation., Routine Given 10/18/2020 2:07 PM EDT 800 mg documented in this encounter Active and Recently Administered Medications Times are shown in EDT. Scheduled Medication Order 10/16/2020 10/17/2020 10/18/2020 acetaminophen (Tylenol) tablet 1,000 mg (COMPLETED) 1,000 mg, Oral, ONCE, 1 dose, On Sandra 10/18/20 at 1030, Administer with SIP of H2O only., Day of Surgery (Day of Procedure), Routine 1026 (Given - Provid er: Kalyn Peñaloza RN) clindamycin (Cleocin) 900 mg in dextrose 5% 50 mL infusion (COMPLETED) 900 mg, Intravenous, ONCE, 1 dose, On Thu10/17/20 at 2215, Administer over 30 Minutes, Indication for (Active or Suspected): Prophylaxis 1054 (Given - Provid er: Lela Gage MD) Continuous Medication Order 10/16/2020 10/17/2020 10/18/2020 lactated ringers infusion 1,000 mL, at 100 mL/hr, Intravenous, CONTINUOUS, Starting on Sandra 10/18/20 at 1045, Until Sandra 10/18/20 at 1813 1045 (Due) PRN Medication Order 10/16/2020 10/17/2020 10/18/2020 acetaminophen (Tylenol) tablet 500 mg 500 mg, Oral, EVERY 4 HOURS PRN, Starting on Sandra 10/18/20 at 1027, Until Sandra 10/18/20 at 1813, Pain, May be given concomitantly with other analgesia. If both acetaminophen and ibuprofen ordered, please give acetaminophen first for pain. If pain not relieved in 30 minutes may administer ibuprofen, if ordered. Maximum dose of acetaminophen is 4000 mg from all sources in 24 hours., Routine BUpivacaine (Sensorcaine) (2.5 mg/mL) 0.25% injection (CANCELED) ONCE PRN, Starting on Sandra 10/18/20 at 1313, Until Sandra 10/18/20 at 1813, Intra-Operative (Intra-Procedure), Routine 1313 (Given - Provid er: Shan Rivero MD) gelatin adsorbable (Gelfoam) sponge (CANCELED) ONCE PRN, Starting on Sandra 10/18/20 at 1133, Until Sandra 10/18/20 at 1813, Intra-Operative (Intra-Procedure) 1133 (Given - Provid er: Shan Rivero MD - Comment: Open to field for surgeon's use) hydrocortisone 1 % ointment (CANCELED) ONCE PRN, Starting on Sandra 10/18/20 at 1311, Until Sandra 10/18/20 at 1813, Intra-Operative (Intra-Procedure) 1311 (Given - Provid er: Shan Rivero MD - Comment: open to field for surgeon's use) ibuprofen (Advil) tablet 800 mg 800 mg, Oral, EVERY 8 HOURS PRN, Starting on Sandra 10/18/20 at 1027, Until Sandra 10/18/20 at 1813, Pain, May be given concomitantly with other analgesia. If both acetaminophen and ibuprofen ordered, please give acetaminophen first for pain. If pain not relieved in 30 minutes may administer ibuprofen, if ordered. Administer orally with milk or food to minimize GI irritation., Routine 1407 (Given - Provid er: Silvia Denny RN) lidocaine-EPINEPHrine (1% - 1:100,000) injection (CANCELED) ONCE PRN, Starting on Sandra 10/18/20 at 1115, Until Sandra 10/18/20 at 1813, Intra-Operative (Intra-Procedure), Routine 1115 (Given - Provid er: Shan Rivero MD) oxyCODONE (Roxicodone) tablet 5 mg 5 mg, Oral, EVERY 4 HOURS PRN, Starting on Sandra 10/18/20 at 1027, Until Sandra 10/18/20 at 1813, Pain, Routine documented in this encounter Care Teams Nursing Specialist Relationship Specialty Start Date End Date [place] [address] PCP - General Family Medicine 09/20/20 08/20/22 documented as of this encounter
--- OUTSIDE RECORDS SUMMARY | 2024-02-29 15:49 | XMS_ITS | Encounter Summary ---
Author Organization [facility] [place] [address] Care Team Providers Care Tai Chi Instructor Name Role Phone Rosario Varela APRN Primary Care Provider [phone] Encounter Details Date Type Department Care Team (Late st Contact Info) Description 03/13/2020 3:40 PM EST Ancillary Procedure Radiology Library at [facility] [place] [address] Rosario Varela APRN [address] [place] [address] Social History Tobacco Use Types Packs/Day Years [...] LIBRARY STORAGE ONLY DX SKELETAL SURVEY Routine 03/13/2020 3:38 PM EST documented in this encounter Results * Film Library- Storage Only DX skeletal survey (03/13/2020 3:38 PM EST) Narrative RAD - 03/13/2020 3:38 PM EST This exam is auto-finalizing. It's purpose is for storage only. Rosario Varela APRN IMG FILM LIBRARY ORDERABLES [place], [place] documented in this encounter Visit Diagnoses Not on filedocumented in this encounter Care Teams Tai Chi Instructor Relationship Specialty Start Date End Date Rosario Varela APRN [address] [place] [address] PCP - General Family Medicine 02/03/18 09/19/20 documented as of this encounter
--- OUTSIDE RECORDS SUMMARY | 2024-02-29 15:49 | XMS_ITS | Encounter Summary ---
[facility] [place] [address] Care Team Providers Care Solar Panel Installer Name Role Phone Rosario Varela APRN Primary Care Provider [phone] Encounter Details Date Type Department Care Team (Late st Contact Info) Description 03/12/2020 [place] [address] Dianelys Avelar Social History Tobacco Use Types Packs/Day Years [...] * Telephone Encounter - Dianelys Avelar - 03/12/2020 3:17 PM EST Faxed to [facility]- [phone] * Telephone Encounter - Dianelys Avelar - 03/12/2020 3:17 PM EST ----- Message from Sonia Escalona APRN sent at 03/12/2020 2:29 PM EST ----- Discussed with Chapin ocampo getting shunt series at [facility]. Placed order. Can you please fax order to [facility]? Thanks documented in this encounter Plan of Treatment Not on file documented as of this encounter Visit Diagnoses Not on filedocumented in this encounter Care Teams Solar Panel Installer Relationship Specialty Start Date End Date Rosario Varela APRN [address] [place] [address] PCP - General Family Medicine 02/03/18 09/19/20 documented as of this encounter
--- OUTSIDE RECORDS SUMMARY | 2024-02-29 15:49 | XMS_ITS | Encounter Summary ---
Author Organization [facility] Address [facility] [place] [address] Care Team Providers Care Java Application Developer Name Role Phone JoséIrma vicente APRN Primary Care Provider [phone] Encounter Details Date Type Department Care Team (Late st Contact Info) Description 10/18/2020 11:20 AM EDT - 10/18/2020 12:40 PM EDT Surgery [facility] [place] [id number] Shan Rivero MD [facility] [place] [address] SURGICAL EXTRACTIONS REQUIRING ELEVATION OF MUCOPERIOSTEAL FLAP AND REMOVAL OF BONE OR SECTION OF TOOTH (WRVU 1.09) Social History Tobacco Use Types Packs/Day Years [...] Sign Reading Time Taken Comments Blood Pressure 134/97 10/18/2020 10:11 AM EDT Pulse 102 10/18/2020 10:11 AM EDT Temperature 36.6 ??C (97.9 ??F) 10/18/2020 10:11 AM E DT Respiratory Rate 18 10/18/2020 10:11 AM EDT Oxygen Saturation 95% 10/18/2020 10:11 AM EDT Inhaled Oxygen Concentration - - [...] may be helpful. Most swelling will occur [id number] hours following the procedure. Mouth Rinse: Vigorous [...] can be reached during office hours at [phone] or [phone]. If you have questions at night or on weekends please contact the resident covering the ENT service through the hospital treadle cut off saw operator. 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 Operative Note Patient Name: Chapin Costa : [id number] MR#: [id number] Case Date: 10/18/2020 Surgeon: Surgeon(s) and Role: [...] prepped and draped in thestandard fashion for oral and maxillofacial surgeon. The oral cavity was suctioned and an [...] the tooth's perimeter was removed with the Montgomery drill. The tooth was then divided into [...] removed with the Sherman drill. The tooth wasthen divided into multiple [...] Diagnoses Diagnosis Dental caries Unspecified dental caries Dental caries Unspecified dental caries documented in [...] Given 10/18/2020 10:26 AM EDT 1,000 mg BUpivacaine (Sensorcaine) (2.5 mg/mL) 0.25% injection ONCE PRN, Starting on Sandra 10/18/20 at 1313, Until Sandra 10/18/20 at 1813, Intra-Operative (Intra-Procedure), Routine Given 10/18/2020 1:13 PM EDT 10 mLs 19- Surgical Site gelatin adsorbable (Gelfoam) sponge ONCE PRN, Starting on Sandra 10/18/20 at 1133, Until Sandra 10/18/20 at 1813, Intra-Operative (Intra-Procedure) Given 10/18/2020 11:33 AM EDT 1 each hydrocortisone 1 % ointment ONCE PRN, Starting on Sandra 10/18/20 at 1311, Until Sandra 10/18/20 at 1813, Intra-Operative (Intra-Procedure) Given 10/18/2020 1:11 PM EDT 1 Tube 19- Surgical Site ibuprofen (Advil) tablet 800 mg 800 mg, [...] Given 10/18/2020 2:07 PM EDT 800 mg lidocaine-EPINEPHrine (1% - 1:100,000) injection ONCE PRN, Starting on Sandra 10/18/20 at 1115, Until Sandra 10/18/20 at 1813, Intra-Operative (Intra-Procedure), Routine Given 10/18/2020 11:15 AM EDT 14 mLs 19- Surgical Site documented in this encounter Active and Recently [...] Starting on Sandra 10/18/20 at 1027, Until Snadra 10/18/20 at 1813, Pain, May be given [...] EVERY 8 HOURS PRN, Starting on Sandra 8/26/21 at 1027, Until Sandra 10/18/20 at 1813, [...] Routine documented in this encounter Care Teams Java Application Developer Relationship Specialty Start Date End [place] [address] PCP - General Family Medicine 09/20/20 08/20/22 documented as of this encounter
--- OUTSIDE RECORDS SUMMARY | 2024-02-29 15:49 | XMS_ITS | Encounter Summary ---
[place] [address] Care Team Providers Care Refinery Operator Coking Name Role Phone YajairaIrma LIZA Primary Care Provider [phone] Reason for Visit * Reason Comments Results Encounter Details Date Type Department Care Team (Latest Contact Info) Description 05/02/2022 2:00 PM EST TH Visit (TeleHealth) [facility] [place] [address] Kevin Hanson, PhD Mild neurocognitive disorder; Hydrocephalus associated with congenital aqueduct stenosis; S/P RECREATION AIDE shunt; Depression, unspecified depression type; Anxiety; Sleep disturbance Social History Tobacco Use Types Packs/Day Years [...] Progress Notes * Brian Gutierrez, Josefa - 05/02/2022 2:00 PM EST CONFIDENTIAL NEUROPSYCHOLOGICAL EVALUATION FEEDBACK NOTE Patient Name: Kvng Costa Date of : 1970 Age: 51 years Sex: Male Referred By: Irma Gates APRN Date of Evaluation: 02/25/2022 Date of Feedback: 05/02/2022 Mr. Costa gave permission for and was seen today via a telehealth (videoconference) visit to discuss their 02/25/2022 [facility] neuropsychological evaluation. During this visit, he was located at his home in [place]. With his permission, his mother (Tracy Sepulveda), sister (Eli), and caregiver ( Leatha Le) also attended the session. A total of 30 minutes was spent providing an overview of our findings and recommendations. They expressed understanding of the information provided. If you would like additional information, please do not hesitate to contact us at . The report is available in full in eDH. Josefa Calero PsyD Postdoctoral Fellow in Neuropsychology Jacquard Fixerquality cloth tester documented in this encounter Plan of Treatment Not on file documented as of this encounter Visit Diagnoses Diagnosis Mild neurocognitive disorder Hydrocephalus associated with congenital aqueduct stenosis Congenital hydrocephalus S/P RECREATION AIDE shunt Presence of cerebrospinal fluid drainage device Depression, unspecified depression type Anxiety Anxiety state, unspecified Sleep disturbance Sleep disturbance, unspecified documented in this encounter Care Teams Refinery Operator Coking Relationship Specialty Start Date End Date [place] [address] PCP - General Family Medicine 09/20/20 08/20/22 documented as of this encounter
--- OUTSIDE RECORDS SUMMARY | 2024-02-29 15:49 | XMS_ITS | Encounter Summary ---
Author Organization [facility] [place] [address] Care Team Providers Care Parts Salvager Name Role Phone JoséIrma vicente LIZA Primary Care Provider [phone] Reason for Visit * Reason Comments Headache Shunt problem * Auth/Cert (Routine) Specialty Diagnoses / Procedures Referred By Contnu t Referred To Contact Diagnoses Congenital hydrocephalus Chronic intractable headache, unspecified headache type Rhoda Jimenez MD [facility] [place] [address] [facility] Referral ID Status Reason Start Date Expiration Date Visits Re quested Visits Authorized [id number] 1 1 Encounter Details Date Type Department Care Team (Late st Contact Info) Description 05/24/2022 8:00 AM EDT - 05/24/2022 11:25 AM EDT Surgery [place] [address] Rhoda Jimenez MD [facility] [place] [address] EXPLORATION VENTRICULO-PERITONEAL SHUNT (WRVU 25.48) Social History Tobacco Use Types Packs/Day Years [...] Sign Reading Time Taken Comments Blood Pressure 129/78 05/24/2022 11:15 AM EDT Pulse 94 05/24/2022 11:15 AM EDT Temperature 35.7 ??C (96.3 ??F) 05/24/2022 10:55 AM E DT Respiratory Rate 18 05/24/2022 11:15 AM EDT Oxygen Saturation 98% 05/24/2022 11:15 AM EDT Inhaled Oxygen Concentration - - [...] ??? Headache ??? Persistent headaches ??? S/P CONTRACT PROGRAMMER shunt History of Presentation: Per review of relevant records: Chapin Costa is a 51 y.o. 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 ?? Patient presents today with his mother, who helps to give some of his childhood history. She tells me his initial shunt was done as an but since than (she says from the age of about 5-16 years) he has had countless malfunctions and 3 total infections requiring revisions and hardware exchanges (she recalls 40-50 surgeries). They report that most recent shunt revision/surgery was roughtly 10-15 years ago and that all of his surgeries were [place] [facility] Our electronic records date backto roughly 2016 but do not record any of these specifically - Mom unable to recall name of surgeon. ?? In more recent history, patient has had issues with chronic headaches which are managed by a Neurologist and he takes rizatriptan as needed with headaches describes as mostly frontal like a vice tombstone erector and occur about 2-3 times weekly but [...] our clinic, confirmed at prior setting of [id number] (has not previously tolerated changes to valve [...] have questions please contact the health director career that requested your imaging first. Electronically signed by: Linsey Herrera [facility] ([phone]), at 05/24/2022 1:[address] Head wo Contrast (Generic) Result Date: 05/23/2022 EXAMINATION: CT HEAD WO CONTRAST (GENERIC) CLINICAL HISTORY: CONTRACT PROGRAMMER shunt w/ worsening headaches since Thursday, c/f [...] have questions please contact the health director career that requested your imaging first. Electronically signed by: Kierra Newsome MD, [facility] ([phone]), at 05/23/2022 9:05 PM XR Shunt Series Result Date: 05/23/2022 EXAMINATION: XR SHUNT SERIES CLINICAL HISTORY: New ALICEA, tenderness over shunt behind ear, vision changes TECHNIQUE: AP and lateral views of the skull, chest, and abdomen. Total 7 images COMPARISON: XRshunt series 01/14/2017. CT head 05/23/2022. FINDINGS: Right frontal approach CONTRACT PROGRAMMER shunt catheter without evidence of fracture or [...] Unremarkable osseous structures. * Right frontal approach CONTRACT PROGRAMMER shunt catheter. * No fracture or kinking [...] have questions please contact the health director career that requested your imaging first. Electronically signed by: Kierra Newsome MD, [facility] ([phone]), at 05/23/2022 10:11 PM XR Skull (Generic) Result Date: 05/24/2022 EXAMINATION: XR [...] have questions please contact the health director career that requested your imaging first. Electronically signed by: ERLL MCFARLAND MD, [facility] ([phone]), at 05/24/2022 1:07 PM SCAN DOC: TELEMETRY STRIPS Result Date: 05/24/2022 Ordered [...] By Expires CT Head wo Contrast (Generic) [CLY575 Custom] 06/23/2022 12/23/2022 Process Instructions: Scheduling Instructions: Questions: Clinical information / miramontes questions for radiologist: Where will study be performed?: [facility] Radiology Stat read required?: Does patient [...] to pass. These medications can be obtained [id number] and their use is recommended on an [...] Primary Care Provider or with the Neurosurgery AMUSEMENT PARK RIDE MECHANIC/RN. Due 06/14. Appointments: [x] Please follow up in the Neurosurgery Clinic in 4-6 weeks. Please call the Neurosurgery Office at [phone] if you do not receive a scheduled [...] On weekends or after office hours: Call [phone] and ask the corner brace block machine operator to page the Neurosurgery Resident intervention nurse. IMPORTANT PHONE NUMBERS: Inpatient Nurses Neurosurgical Resident On-Call (after 5pm or before 8am) Neurosurgery offices (Thursday through Thursday between 8am-5pm): Adult Neurosurgery Dr. Andrew Colon Pediatric Neurosurgery Dr. Cl Figueroa Associate Providers Vanessa Pedroza, Nurse Practitioner Cl Atkins, Physician Leather Tanner Beto Ham, Nurse Practitioner Mini Corbett, Nurse Practitioner Essie Izaguirre, Nurse Practitioner Sonia Cevallos, Nurse Practitioner * Your surgeon may not be weight caller, so be ready to tell about yourself and your surgery when you call, especially after hours or on the weekend. Richard Valles MD 05/25/2022 9:14 AM [facility] Neurosurgery NS Inpatient Pager: #[phone] documented in this encounter Discharge Instructions * [...] to pass. These medications can be obtained [id number] and their use is recommended on an [...] Primary Care Provider or with the Neurosurgery AMUSEMENT PARK RIDE MECHANIC/RN. Due 06/14. Appointments: [x] Please follow up in the Neurosurgery Clinic in 4-6 weeks. Please call the Neurosurgery Office at [phone] if you do not receive a scheduled [...] AM EDT NEUROSURGERY PROGRESS NOTE PLEASE PAGE [phone] WITH QUESTIONS ID: Chapin Costa is a 51 y.o. 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5 CL 101 100 CO2 21* 23 BUN 16 14 CREATININE 1.07 0.95 Recent Labs 05/24/22 0220 PT 12.1 INR 1.1 Active Hospital Problems Diagnosis ??? Congenital hydrocephalus Resolved Hospital Problems No resolved problems to display. Active Non-Hospital Problems Diagnosis ??? Hydrocephalus ??? Seizures ??? Cervicalgia ??? Headache ??? Persistent headaches ??? S/P CONTRACT PROGRAMMER shunt Laila Ricci MD 05/25/2022 * Meghan Bartlett RN - 05/25/2022 6:16 AM EDT Patient DSD to surgical site behind R ear is c/d/i. * Meghan Bartlett RN - 05/25/2022 5:30 AM EDT Patient denies needing pain meds, provider assessed patient at bedside. * Main Trevino MD - 05/24/2022 3:06 PM EDT NEUROSURGERY PROGRESS NOTE PLEASE PAGE [phone] WITH QUESTIONS ID: Chapin Costa is a 51 y.o. 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 Headache ??? Persistent headaches ??? S/P CONTRACT PROGRAMMER shunt Main Trevino MD 05/24/2022 * Ray [...] 94 %. on RA 1700 RN paged [phone] req throat lozenge or hurricane spray - [...] AM EDT NEUROSURGERY PROGRESS NOTE PLEASE PAGE [phone] WITH QUESTIONS ID: Chapin Costa is a 51 y.o. 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 Electronically signed by: Kierra Newsome MD, [facility] ([phone]), at 05/23/2022 9:05 PM XR Shunt Series (Exam End: 05/23/2022 9:51 PM) Impression * Right frontal approach CONTRACT PROGRAMMER shunt catheter. * No fracture or kinking [...] have questions please contact the health director career that requested your imaging first. Electronically signed by: Kierra Newsome MD, [facility] ([phone]), at 05/23/2022 10:11 PM MEDICATIONS: Scheduled Meds: ??? benztropine 0.5 mg [...] 88.5 kg (195 lb 1.7 oz) (05/23/22 194) BMI (Calculated): 31.5 BMI Classification: Obese I/O: [...] ??? Headache ??? Persistent headaches ??? S/P CONTRACT PROGRAMMER shunt Laila Ricci MD 05/24/2022 documented in this encounter H&P Notes * Laila Ricci MD - 05/24/2022 1:33 AM EDT [facility] NEUROSURGERY H&P Date: 05/24/2022 ID: Chapin Costa, 51 y.o. male : 1970 Admission Date: 05/23/2022 PCP: Irma Gates APRN CC/Reason for consult: shunt malfunction History of Present Illness: Chapin Costa is a 51 y.o. 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 Patient presents today with his mother, who helps to give some of his childhood history. She tells me his initial shunt was done as an but since than (she says from the age of about 5-16 years) he has had countless malfunctions and 3 total infections requiring revisions and hardware exchanges (she recalls 40-50 surgeries). They report that most recent shunt revision/surgery was roughtly 10-15 years ago and that all of his surgeries were done here at [facility]. Our electronic records date backto roughly 2016 but do not record any of these specifically - Mom unable to recall name of surgeon. In more recent history, patient has had issues with chronic headaches which are managed by a Neurologist and he takes rizatriptan as needed with headaches describes as mostly frontal like a vice tombstone erector and occur about 2-3 times weekly but [...] our clinic, confirmed at prior setting of [id number] (has not previously tolerated changes to valve [...] Active Problem List Diagnosis Code ??? S/P CONTRACT PROGRAMMER shunt Z98.2 ??? Persistent headaches R51.9 ??? Headache R51.9 ??? Cervicalgia M54.2 ??? Seizures R56.9 ??? Hydrocephalus G91.9 Past Surgical History: Past Surgical History: Procedure Laterality Date ??? CARPAL TUNNEL RELEASE Right ??? CHOLECYSTECTOMY, LAPAROSCOPIC ??? PRO ALVEOLOPLASTY W EXTRACTIONS, 4 OR MORE TEETH, PER QUADRANT N/A 10/18/2020 ALVEOPLASTY,IN CONJUNCTION WITH EXTRACTIONS,PER QUADRANT,ENT (WRVU 4.06) performed by Shan Rivero MD at [facility] ??? PRO EXTRACTION ERUPTED TOOTH/EXR N/A 10/18/2020 EXTRACTION, ERUPTED TOOTH OR EXPOSED ROOT (WRVU 0.62) performed by Shan Rivero MD at [facility] ??? PRO IMPACT TOOTH REM BONY W/COMP N/A 10/18/2020 SURGICAL EXTRACTIONS, REMOVAL OF IMPACTED TOOTH, COMPLETELY BONY WITH UNUSUAL SURGICAL COMPLICATIONS (WRVU 2.91) performed by Shan Rivero MD at [facility] ??? PRO IMPACT TOOTH REMOV COMP BONY N/A 10/18/2020 SURGICAL EXTRACTIONS, REMOVAL OF IMPACTED TOOTH, COMPLETELY BONY (WRVU 1.93) performed by Shan Rivero MD at [facility] ??? PRO REMOVAL ERUPTED TOOTH WITH ELEVATION OF MUCOPERIOSTEAL FLAP Bilateral 10/18/2020 SURGICAL EXTRACTIONS REQUIRING ELEVATION OF MUCOPERIOSTEAL FLAP AND REMOVAL OF BONE OR SECTION OF TOOTH (WRVU 1.09) performed by Shan Rivero MD at [facility] ??? SHOULDER SURGERY ??? ULNAR [...] intracranial hemorrhage. XRSS: * Right frontal approach CONTRACT PROGRAMMER shunt catheter. * No fracture or kinking is evident. * Mild cinching of the catheter at the level of C5 vertebral body on lateral view. Consider functional assessment. Imaging independently reviewed. Assessment: Chapin Costa is a 51 y.o. 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 Confirmed radiographically shunt setting of [id number]. Patient's symptoms are at this time somewhat [...] Ricci MD 05/24/2022 12:11 AM [facility] Neurosurgery Inpatient Pager: #[phone] Personal Pager: #[phone] There are no hospital problems to display for this patient. Active Non-Hospital Problems Diagnosis ??? Hydrocephalus CONTRACT PROGRAMMER shunt placed for congenital aqueductal stenosis, has [...] ??? Headache ??? Persistent headaches ??? S/P CONTRACT PROGRAMMER shunt Codman Hakim valve. Setting 80. Associated [...] Ricci MD - 05/24/2022 2:01 AM EDT [facility] NEUROSURGERY CONTRACT PROGRAMMER SHUNT TAP NOTE Date: 05/24/22 Patient: Chapin [...] significant for congenital aqueductal stenosis status post CONTRACT PROGRAMMER shunt over 40 years ago (patient has [...] particularly tender over the track of his CONTRACT PROGRAMMER shunt behind his right ear. He has not had any nausea, vomiting. Patient additionally states that he has had some new floaters in his vision associated with this since Thursday. Patient last had a shunt revision approximate 10 years ago according to his mother. Also per the patient's mother, the patient has had numerous CONTRACT PROGRAMMER shunt infections throughout his life. ROS as [...] Series Final Result * Right frontal approach CONTRACT PROGRAMMER shunt catheter. * No fracture or kinking [...] have questions please contact the health director career that requested your imaging first. Electronically signed by: Kierra Newsome MD, [facility] ([phone]), at 05/23/2022 10:[address] Head wo Contrast (Generic) Final Result No hydrocephalus or acute intracranial abnormality. Thank you for letting us participate in the care of this patient. If you are a health care provider and have any questions regarding this report, please contact the number below. For patients who have questions please contact the health director career that requested your imaging first. Electronically signed by: Kierra Newsome MD, [facility] ([phone]), at 05/23/2022 9:05 PM Procedures Assessment and Plan: 51 y.o. male [...] a history that is complex with his CONTRACT PROGRAMMER shunt, concerning for infection/obstruction given his history [...] evaluate for the fidelity of the patient's CONTRACT PROGRAMMER shunt. Head CT without evidence of ventriculomegaly, CONTRACT PROGRAMMER shunt without signs of kink but does [...] aqueductal stenosis, status postVP shunt as an , with a reported 40 or 50 shunt [...] involve critical care? No Ray Olivia MD 05/23/22 0860 documented in this encounter Miscellaneous Notes * Plan of Care - Meghan Bartlett RN - 05/24/2022 9:05 PM EDT OUTCOME [...] as documented. * Consult Note - Jens Boyd [facility] - 05/24/2022 4:35 PM EDT [facility] Med[facility] List Update for Medication Reconciliation [...] 40 mg QHS - Testosterone 250 mg [id number] (last dose 05/13/22) ??? Additional Notes: o [...] reconciled by the provider. Please contact the [facility] Pharmacist at for any questions. Jens Boyd RPH * Op Note - Rhoda Jimenez MD - 05/24/2022 11:[address] [facility] Operative Note Patient Name: Chapin Costa : [id number] MR#: [id number] Case Date: 05/24/2022 Surgeon: Surgeon(s) and Role: [...] tohis head and 3D space using the Klutch neuro navigation system with Axiom. Once accuracy, and orien tation were confirmed [...] Operative Note Patient Name: Chapin Costa : [id number] MR#: [id number] Case Date: 05/24/2022 Surgeon: Surgeon(s) and Role: [...] care. Having shunt pain as well. Pain 7-810 Has had a fever for the last [...] EDT SHunt malfunction Unlisted Procedure Nervous System (57805) 05/24/2022 8:35 AM EDT SHunt malfunction EXPLORATION [...] 05/24/2022 2:20 AM EDT TYPE AND SCREEN ([facility]/DULCE MARIA) STAT 05/24/2022 2:20 AM EDT HC [...] PROBE STAT 05/24/2022 12:45 AM EDT HC MARKETING SALES CONSULTANT CULTURE STAT 05/24/2022 12:45 AM EDT HC [...] have questions please contact the health director career that requested your imaging first. ? Narrative [...] who have questions please contactthe health director career that requested your imaging first. Rhoda Jimenez MD IMG CT ORDERABLES * (ABNORMAL) Differential, Automated (05/25/2022 12:38 AM EDT) Neutrophil % 83.2 % [facility] Neutrophil Absolute 15.10(H) 1.70 - 6.10 x10(3)/mc L [facility] Lymph % 11.9 % [facility] Lymphocytes Abs 2.2 0.9 - 3.2 x10(3)/mc L [facility] Monocyte % 4.1 % [facility] Monocyte Abs 0.8 0.3 - 0.9 x10(3)/mc L [facility] Eos % 0.1 % [facility] Eosinophils Abs 0.0 0.0 - 0.4 x10(3)/mc L [facility] Basophil % 0.3 % [facility] Baso Absolute 0.1 0.0 - 0.1 x10(3)/mc L [facility] Immature Gran % 0.40 % [facility] Comment: Immature granulocytes(IG's)percentage and absolute count will include metamyelocytes, myelocytes, and promyelocytes. Blood smears from CBCs yielding IG's will be scanned manually for concordance. If this scan disagrees with the automated IG or if promyelocytes are noted, a manual differential will be performed. Immature Gran Absolute 0.07(H) 0.00 - 0.04 x10(3)/mc L [facility] Blood 05/25/2022 12:3 8 AM EDT 05/25/2022 1:00 AM EDT Narrative Resulting Agency Comment Spec In Lab Laila Ricci MD HEMATOLOGY ORDERABLE S [facility] [place] [address] * (ABNORMAL) Hemogram (05/25/2022 12:38 AM EDT) White Blood Cell 18.2(H) 4.0 - 9.5 x10(3)/mc L [facility] Red Blood Cell 5.33 4.58 - 5.54 x10(6)/mc L [facility] Hemoglobin 16.0 13.7 - 16.5 g/dL [facility] Hematocrit 46.7 40.5 - 48.5 % [facility] Mean Cell Volume 87.6 82.9 - 93.1 fL [facility] Mean Cell Hemoglobin 30.0 27.5 - 32.1 pg [facility] Mean Cell Hemoglobin Concentration 34.3 32.0 - 35.7 g/dL [facility] Platelet 275 145 - 357 x10(3)/mc L [facility] RDW Standard Deviation 41.1 36.0 - 45.0 fL [facility] RDW coefficient of variation 12.9 11.4 - 13.8 % [facility] Mean Platelet Volume 9.2 7.6 - 12.9 fL [facility] NRBC% auto 0.0 % [facility] NRBC Absolute 0.000 0.000 - 0.000 x10(3)/ L [facility] Blood 05/25/2022 12:3 8 AM EDT 05/25/2022 1:00 AM EDT Narrative Resulting Agency Comment Spec In Lab Laila Ricci MD HEMATOLOGY ORDERABLE S Performing Organization Address City/State/[facility] Co de Phone Number [facility] [place] [address] * (ABNORMAL) Basic Metabolic Panel (non-fasting) (05/25/2022 12:38 AM EDT) Glucose 132 65 - 199 mg/dL [facility] Comment:Diabetes: >=200 mg/d L plus symptoms Blood Urea Nitrogen 16 10 - 20 mg/dL [facility] Creatinine 1.07 0.80 - 1.50 mg/dL [facility] Sodium 135 135 - 145 mmol/L [facility] Potassium 4.3 3.5 - 5.0 mmol/L [facility] Comment: Please note: ??Patients with WBC >100,000 may have falsely elevated Potassium levels. ??For accurate Potassium quantification in these patients send serum separator tube (gold top) for subsequent determinations. ??Contact the Clinical Chemistry Laboratory if there are any questions. Chloride 101 98 - 107 mmol/L [facility] Carbon Dioxide 21(L) 22 - 31 mmol/L [facility] Anion Gap 13 5 - 15 mmol/L [facility] Calcium 9.0 8.5 - 10.5 mg/dL [facility] Est Glomerular Filtration Rate 85 >=60 mL/min/1. 73 m?? [facility] Comment: This patient's estimated GFR [...] MD CHEMISTRY ORDERABLES Performing Organization Address [facility] Co de Phone Number [facility] [place] [address] * Blood culture (05/24/2022 10:55 PM EDT) Blood Culture No growth at 5 days. [facility] Blood 05/24/2022 10:5 5 PM EDT 05/24/2022 11:38 PM EDT Comment:RAC hand 1 set Narrative Resulting Agency Comment Spec In Lab Rhoda Jimenez MD MICROBIOLOGY - BLOOD ORDERABLES Performing Organization Address [facility]/ZIP Co de Phone Number [facility] [place] [address] * XR Skull (Generic) (05/24/2022 12:51 PM [...] have questions please contact the health director career that requested your imaging first. ? Electronically signed by: RELL MCFARLAND MD, [facility] ??([phone]), at 05/24/2022 1:07 PM Narrative 05/24/2022 1:07 PM EDT EXAMINATION: XR [...] who have questions please contactthe health director career that requested your imaging first. Electronically signed by: RELL MCFARLAND MD, [facility]([phone]), at 05/24/2022 1:07 PM Rhoda Jimenez MD IMG DX ORDERABLES [...] have questions please contact the health director career that requested your imaging first. ? Electronically signed by: Linsey Herrera [facility] ([phone]), at 05/24/2022 1:09 PM Narrative 05/24/2022 1:09 PM EDT EXAMINATION: CT [...] paranasal sinuses are essentially clear. Procedure Note Linsey Herrera MD - 05/24/2022 EXAMINATION: CT HEAD [...] who have questions please contactthe health director career that requested your imaging first. Rhoda Jimenez MD IMG CT ORDERABLES * Type and Screen Validity (05/24/2022 2:20 AM EDT) T&S only valid at [facility] LABORATORY Comment:This Type and Screen result is only valid at the [facility] Blood 05/24/2022 2:20 AM EDT 05/24/2022 2:39 AM EDT Narrative Resulting Agency Comment Spec In Lab Laila Ricci MD BLOOD BANK LAB ORDER [facility] [place] [address] * ABORH Recheck Status (05/24/2022 2:20 AM EDT) ABORH Type Recheck Completed [facility] Blood 05/24/2022 2:20 AM EDT 05/24/2022 2:39 AM EDT Narrative Resulting Agency Comment Spec In Lab Laila Ricci MD BLOOD BANK LAB ORDER [facility] [place] [address] * Antibody screen (05/24/2022 2:20 AM EDT) Ab Screen Interp Negative [facility] Expires at [id number] on: 05/27/2022 [facility] Blood 05/24/2022 2:20 AM EDT 05/24/2022 2:39 AM EDT Narrative Resulting Agency Comment Spec In Lab Laila Ricci MD BLOOD BANK LAB ORDER [facility] Performing Organization Address City/[facility]/ZIP Co de Phone Number [facility] [place] [address] * ABO/Rh Typing (05/24/2022 2:20 AM EDT) ABORH Type A Pos [facility] Blood 05/24/2022 2:20 AM EDT 05/24/2022 2:39 AM EDT Narrative Resulting Agency Comment Spec In Lab Laila Ricci MD BLOOD BANK LAB ORDER [facility] Performing Organization Address City/[facility]/ZIP Co de Phone Number [facility] [place] [address] * (ABNORMAL) CRP, acute inflammation (05/24/2022 2:20 AM EDT) C-Reactive Protein 10.8(H) <=4.9 mg/L [facility] Blood 05/24/2022 2:20 AM EDT 05/24/2022 2:33 AM EDT Narrative Resulting Agency Comment Spec In Lab Rhoda Jimenez MD CHEMISTRY ORDERABLES Performing Organization Address City/[facility]/ZIP Co de Phone Number [facility] [place] [address] * (ABNORMAL) Sedimentation rate (05/24/2022 2:20 AM EDT) Sedimentation Rate Automated 35(H) 2 - 28 mm/hr [facility] Comment: Effective February 02, 2019 new capillary photometric technology has resulted in a change in reference ranges. It is recommended that each ESR result be reviewed with its own age appropriate reference range. Blood 05/24/2022 2:20 AM EDT 05/24/2022 2:33 AM EDT Narrative Resulting Agency Comment Spec In Lab Rhoda Jimenez MD HEMATOLOGY ORDERABLE S Performing Organization Address [facility] de Phone Number [facility] [place] [address] * APTT (05/24/2022 2:20 AM EDT) Partial Thromboplastin Time 31 25 - 37 sec [facility] Comment: The PTT is NOT appropriate for heparin monitoring. Use the Anti-Xa level for heparin monitoring (HEP UFH) or LMWH monitoring (HEP LMW). A PTT less than 37 seconds generally indicates adequate hemostasis. Blood 05/24/2022 2:20 AM EDT 05/24/2022 2:33 AM EDT Narrative Resulting Agency Comment Spec In Lab Rhoda Jimenez MD HEMATOLOGY ORDERABLE S Performing Organization Address [facility] Co de Phone Number [facility] [place] [address] * Prothrombin Time (05/24/2022 2:20 AM EDT) Prothrombin Time 12.1 9.4 - 12.5 sec [facility] International Normalization Ratio 1.1 [facility] Comment: An INR <2.0 indicates [...] MD HEMATOLOGY ORDERABLE S Performing Organization Address City/[facility]/ZIP Co de Phone Number [facility] [place] [address] * CSF Cell Count (05/24/2022 12:45 AM EDT) Tube # counted 1 [facility] AUTO NUC CSF CT 0 0 - 5 /mcl [facility] Comment: If Nucleated CSF CT [...] clinical condition. RBC CSF CT 0 /mcl [facility] Cerebrospinal Fluid 05/25/19 12:45 AM EDT 05/24/2022 1:00 AM EDT Narrative Resulting Agency Comment Spec In Lab Laila Ricci MD BODY FLUIDS AND STOO LS ORDERABLES Performing Organization Address [facility] Co de Phone Number [facility] [place] [address] * CSF DESC 1 (05/24/2022 12:45 AM EDT) Tube Num CSF #1 1 [facility] Color, CSF Colorless Colorless [facility] Appearance, CSF Clear Clear [facility] Total Vol, CSF 2.3 mL [facility] Cerebrospinal Fluid 05/25/19 12:45 AM EDT 05/24/2022 1:00 AM EDT Narrative Resulting Agency Comment Spec In Lab Laila Ricci MD BODY FLUIDS AND STOO LS ORDERABLES Performing Organization Address City/[facility]/ZIP Co de Phone Number [facility] [place] [address] * VZV PCR, CSF (05/24/2022 12:45 AM EDT) Varicella-Zo ster PCR (MAY) Test ?Result ? Flag ??Unit ??RefValue ------- Varicella-Zoster Virus, PCR, Varies ??Specimen Source ? CSF ??Varicella-Zoster Virus PCR ?Negative ? Negative ? ---ADDITIONAL INFORMATION------- ?This test was developed and its performance characteristics ?determined by [facility] in a manner consistent with CLIA ?requirements. This test has not been cleared or approved by ?the U.S. Food and Drug Administration. ?Test Performed by: ?[facility] ?[address] [place] [address] ?Log Buncher: Jackson Kaplan M.D. Ph.D.; CLIA# [id number] [facility] Cerebrospinal Fluid 05/25/19 12:45 AM EDT 05/26/2022 8:23 AM EDT Narrative Resulting Agency Comment Spec In Lab Rhoda Jimenez MD LAB SEND OUT ORDERAB LES [facility] [place] [address] * Fungus culture Cerebrospinal Fluid (05/24/2022 12:45 AM EDT) Fungus Culture No Fungus isolated [facility] Cerebrospinal Fluid 05/25/19 12:45 AM EDT 05/24/2022 1:05 AM EDT Narrative Resulting Agency Comment Spec In Lab Rhoda Jimenez MD MICROBIOLOGY - GENER AL ORDERABLES Performing Organization Address City/[facility]/ZIP Co de Phone Number [facility] [place] [address] * HSV 1 and 2 PCR (05/24/2022 12:45 AM EDT) HSV-1 PCR Not Detected Not Detected [facility] HSV-2 PCR Not Detected Not Detected [facility] HSV Source CSF [facility] Comment: The only FDA approved specimen types for this assay are CSF and genital lesions. Cerebrospinal Fluid 05/25/19 12:45 AM EDT 05/24/2022 1:05 AM EDT Comment:Specimen Type:->Cere brospinal Fluid Narrative Resulting Agency Comment Spec In Lab Rhoda Jimenez MD MICROBIOLOGY - GENER AL ORDERABLES Performing Organization Address City/[facility] Co de Phone Number [facility] [place] [address] * Enterovirus PCR, CSF (05/24/2022 12:45 AM EDT) ENTV PCR Negative Negative [facility] Cerebrospinal Fluid 05/25/19 12:45 AM EDT 05/24/2022 1:05 AM EDT Narrative Resulting Agency Comment Spec In Lab Rhoda Jimenez MD MICROBIOLOGY - GENER AL ORDERABLES Performing Organization Address City/[facility]/ZIP Co de Phone Number [facility] [place] [address] * CSF Culture (05/24/2022 12:45 AM EDT) Central Nervous System Culture No growth [facility] Gram Stain Cytocentrifuge Gram Stain performed No Neutrophils seen. No microorganisms seen. [facility] Cerebrospinal Fluid 05/25/19 12:45 AM EDT 05/24/2022 1:05 AM EDT Narrative Resulting Agency Comment Spec In Lab Rhoda Jimenez MD MICROBIOLOGY - GENER AL ORDERABLES Performing Organization Address [facility] Co de Phone Number [facility] [place] [address] * Glucose Level CSF (05/24/2022 12:45 AM EDT) Glucose, CSF 78 mg/dL [facility] Comment:CSF at equilibrium e quals approximately 60-80% of plasma glucose. Cerebrospinal Fluid 05/25/19 12:45 AM EDT 05/24/2022 1:00 AM EDT Narrative Resulting Agency Comment Spec In Lab Rhoda Jimenez MD BODY FLUIDS AND STOO LS ORDERABLES Performing Organization Address [facility] Co de Phone Number [facility] [place] [address] * (ABNORMAL) Protein Level CSF (05/24/2022 12:45 AM EDT) Protein, CSF 9(L) 15 - 45 mg/dL [facility] Xanthochromia Neg [facility] Cerebrospinal Fluid 05/25/19 12:45 AM EDT 05/24/2022 1:00 AM EDT Narrative Resulting Agency Comment Spec In Lab Rhoda Jimenez MD BODY FLUIDS AND STOO LS ORDERABLES Performing Organization Address [facility] Co de Phone Number [facility] [place] [address] * SCAN DOC: IMPLANTABLE DEVICES (05/24/2022 12:00 AM EDT) Narrative 05/24/2022 12:00 AM EDT Ordered by an unspecified provider. Scanning Provider MEDIA MGR SCAN EXT O RDR/RSLT * XR Shunt Series (05/23/2022 9:51 PM EDT) Anatomical Region Laterality Modality N/A Digital Radiogra phy Impressions 05/23/2022 10:11 PM EDT * ??Right frontal approach [employer] PROGRAM[employer] shunt catheter. * ??No fracture or kinking [...] have questions please contact the health director career that requested your imaging first. ? Electronically signed by: Kierra Newsome MD, [facility] ([phone]), at 05/23/2022 10:11 PM Narrative 05/23/2022 10:11 PM EDT EXAMINATION: XR SHUNT SERIES CLINICAL HISTORY: New ALICEA, tenderness over shunt behind ear, vision changes TECHNIQUE: AP and lateral views of the skull, chest, and abdomen. Total 7 images COMPARISON: XR shunt series 01/14/2017. CT head 05/23/2022. FINDINGS: Right frontal approach [employer] PROGRAMMER shunt catheter without evidence of fracture or [...] CT head 05/23/2022. 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 IMPRESSION * Right frontal approach CONTRACT PROGRAMMER shunt catheter. * No fracture or kinking [...] who have questions please contactthe health director career that requested your imaging first. Ray Olivia [...] have questions please contact the health director career that requested your imaging first. ? 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 Ray Olivia MD IM CT ORDERABLES * (ABNORMAL) Urinalysis with reflex Culture (05/23/2022 8:54 PM EDT) Glucose, Urine Dipstick Negative Negative mg/dL [facility] Protein, Urine Dipstick Negative Negative mg/dL [facility] Bilirubin, Urine Dipstick Negative Negative mg/dL [facility] Comment: Clinical correlation required for positive Urine Bilirubin results as false positive may occur with some drugs and drug related products. If a false positive is suspected a serum total bilirubin should be considered if clinically indicated. Urobilinogen, Urine Dipstick Normal Normal mg/dL [facility] pH, Urn (dipstick) 6.5 5.0 - 8.0 [facility] Blood, Urine Dipstick Negative Negative mg/dL [facility] Ketone, Urine Dipstick Negative Negative mg/dL [facility] Nitrite, Urine Dipstick Negative Negative [facility] Leukocytes, Urine Dipstick Negative Negative [facility] Appearance, Urine Dipstick Cloudy(A) Clear [facility] Specific [place] Urine Automated 1.016 1.005 - 1.030 [facility] Color, Urine Dipstick Yellow Yellow [facility] Reflex to Culture No [facility] Clean Catch Urine 05/23/2022 8:54 PM EDT 05/23/2022 8:58 PM EDT Narrative Resulting Agency Comment Spec In Lab Ray Olivia MD URINE ORDERABLES [facility] [place] [address] * (ABNORMAL) Differential, Automated (05/23/2022 8:32 PM EDT) Neutrophil % 68.3 % [facility] Neutrophil Absolute 11.19(H) 1.70 - 6.10 x10(3)/mc L [facility] Lymph % 23.6 % [facility] Lymphocytes Abs 3.9(H) 0.9 - 3.2 x10(3)/mc L [facility] Monocyte % 6.0 % [facility] Monocyte Abs 1.0(H) 0.3 - 0.9 x10(3)/mc L [facility] Eos % 1.1 % [facility] Eosinophils Abs 0.2 0.0 - 0.4 x10(3)/mc L [facility] Basophil % 0.6 % [facility] Baso Absolute 0.1 0.0 - 0.1 x10(3)/mc L [facility] Immature Gran % 0.40 % [facility] Comment: Immature granulocytes(IG's)percentage and absolute count will include metamyelocytes, myelocytes, and promyelocytes. Blood smears from CBCs yielding IG's will be scanned manually for concordance. If this scan disagrees with the automated IG or if promyelocytes are noted, a manual differential will be performed. Immature Gran Absolute 0.06(H) 0.00 - 0.04 x10(3)/mc L [facility] Blood 05/23/2022 8:32 PM EDT 05/23/2022 8:44 PM EDT Narrative Resulting Agency Comment Spec In Lab Derek Monson MD [place] [address] * (ABNORMAL) Hemogram (05/23/2022 8:32 PM EDT) White Blood Cell 16.4(H) 4.0 - 9.5 x10(3)/mc L [facility] Red Blood Cell 5.75(H) 4.58 - 5.54 x10(6)/mc L [facility] Hemoglobin 17.2(H) 13.7 - 16.5 g/dL [facility] Hematocrit 49.8(H) 40.5 - 48.5 % [facility] Mean Cell Volume 86.6 82.9 - 93.1 fL [facility] Mean Cell Hemoglobin 29.9 27.5 - 32.1 pg [facility] Mean Cell Hemoglobin Concentration 34.5 32.0 - 35.7 g/dL [facility] Platelet 279 145 - 357 x10(3)/mc L [facility] RDW Standard Deviation 39.8 36.0 - 45.0 fL [facility] RDW coefficient of variation 12.7 11.4 - 13.8 % [facility] Mean Platelet Volume 9.2 7.6 - 12.9 fL [facility] NRBC% auto 0.0 % [facility] NRBC Absolute 0.000 0.000 - 0.000 x10(3)/ L [facility] Blood 05/23/2022 8:32 PM EDT 05/23/2022 8:44 PM EDT Narrative Resulting Agency Comment Spec In Lab Derek Monson MD HEMATOLOGY ORDERABLE S [facility] [place] [address] * TSH Mather (05/23/2022 8:32 PM EDT) Thyroid Stimulating Hormone 2.33 0.27 - 4.20 mcIU/mL [facility] Comment: Reference Interval (mcIU/mL): Females: ??First Trimester: 0.23-3.88 ??Second Trimester: 0.22-3.90 ??Third Trimester: 0.44-4.66 Blood 05/23/2022 8:32 PM EDT 05/23/2022 8:44 PM EDT Narrative Resulting Agency Comment Spec In Lab Ray Olivia MD CHEMISTRY ORDERABL ES Performing Organization Address [facility] Co de Phone Number [facility] [place] [address] * Basic Metabolic Panel (non-fasting) (05/23/2022 8:32 PM EDT) Glucose 98 65 - 199 mg/dL [facility] Comment:Diabetes: >=200 mg/d L plus symptoms Blood Urea Nitrogen 14 10 - 20 mg/dL [facility] Creatinine 0.95 0.80 - 1.50 mg/dL [facility] Sodium 138 135 - 145 mmol/L [facility] Potassium 4.5 3.5 - 5.0 mmol/L [facility] Comment: Please note: ??Patients with WBC >100,000 may have falsely elevated Potassium levels. ??For accurate Potassium quantification in these patients send serum separator tube (gold top) for subsequent determinations. ??Contact the Clinical Chemistry Laboratory if there are any questions. Chloride 100 98 - 107 mmol/L [facility] Carbon Dioxide 23 22 - 31 mmol/L [facility] Anion Gap 15 5 - 15 mmol/L [facility] Calcium 9.7 8.5 - 10.5 mg/dL [facility] Est Glomerular Filtration Rate 98 >=60 mL/min/1. 73 m?? [facility] Comment: This patient's estimated GFR [...] MD CHEMISTRY ORDERABL ES Performing Organization Address [facility]/ZIP Co de Phone Number [facility] [place] [address] documented in this encounter Visit Diagnoses Not on filedocumented in this encounter Admitting Diagnoses Diagnosis Congenital [...] Given 05/24/2022 11:53 AM EDT 1,000 mg bacitracin zinc-polymyxin B (Polysporin) ointment ONCE PRN, Starting on 05/24/22 at 1018, Until 05/25/22 at 1631, Intra-Operative (Intra-Procedure) Given 05/24/2022 10:18 AM EDT 0.5 Tubes 19- Surgical Site benztropine (Cogentin) tablet 0.5 mg 0.5 mg, Oral, DAILY, First dose on 05/24/22 at 0900, Until Discontinued, Routine Given 05/25/2022 8:10 AM EDT 0.5 mg BUpivacaine-EPINEPHrine (Marcaine-epiNEPHrine) 0.25 %-1:200,000 injection ONCE PRN, Starting on 05/24/22 at 0937, Until 05/25/22 at 1631, Intra-Operative (Intra-Procedure), Routine Given 05/24/2022 9:37 AM EDT 6 mLs 19- Surgical Site levothyroxine (Synthroid) tablet 25 mcg 25 mcg, [...] , Routine Given 05/24/2022 8:55 PM EDT 2 0 mg melatonin tablet 6 mg 6 mg, [...] Until Discontinued, Routine Given 05/25/2022 8:10 AM E DT 100 mg documented in this encounter Active and Recently Administered Medications Times are shown in EDT. Scheduled Medication Order 05/23/2022 05/24/2022 05/25/2022 benztropine (Cogentin) tablet 0.5 mg 0.5 mg, Oral, DAILY, First dose on 05/24/22 at 0900, Until Discontinued, Routine 0831 ([facility] Hold - Provider: Admin Adt - Reason: Transfer to a Procedural area)0900 (Automatically Held - Provider: Admin Adt)1404 ([facility] Unhold - Provider: Admin Adt) 0810 (Given - Provider: Ray De La Garza, EDWARD) ceFAZolin (Ancef) 1 g in dextrose 5% 50 mL infusion (COMPLETED) 1 g, Intravenous, EVERY 8 HOURS, 3 doses, First dose on 05/24/22 at 1600, Last dose on 05/25/22 at 0800, Administer over 30 Minutes, Indication for (Active or Suspected): Prophylaxis 1636 (New Bag - Provider: Ray De La Garza RN)1706 (Stopped - Provider: Ray De La Garza RN)2313 (New Bag - Provider: Meghan Bartlett RN)2343 (Stopped - Provider: Meghan Bartlett, EDWARD) 0810 (New Bag - Provider: Ray De La Garza RN)0840 (Stopped - Provider: Ray De La Garza RN) levothyroxine (Synthroid) tablet 25 mcg 25 mcg, Oral, DAILY, First dose on 05/24/22 at 0600, Until Discontinued, Routine 0600 (Given - Provider: Marianna Duran RN)0831 ([facility] Hold - Provider: Admin Adt - Reason: Transfer to a Procedural area)1404 ([facility] Unhold - Provider: Admin Adt) 0539 (Given - Provider: Meghan Bartlett, EDWARD) lurasidone (Latuda) tablet 20 mg 20 mg, Oral, NIGHTLY, First dose (after last reorder) on 05/24/22 at 2100, Until Discontinued, Administer with a meal containing at least 350 calories , Routine 2054 (Given - Provider: Meghan Bartlett, EDWARD) magnesium oxide (Mag-Ox) tablet 400 mg (CANCELED) 400 mg, Oral, 2 TIMES DAILY, First dose on 05/24/22 at 0140, Until Discontinued, Routine 0140 (Given - Provider: Marianna Duran RN)0831 ([facility] Hold - Provider: Admin Adt - Reason: Transfer to a Procedural area)0900 (Automatically Held - Provider: Admin Adt)1404 ([facility] Unhold - Provider: Admin Adt)2055 (Not Given - Provider: Meghan Bartlett RN - Reason: Patient/family refused) melatonin tablet 6 mg 6 mg, Oral, NIGHTLY, First dose on 05/24/22 at 2215, Until Discontinued, Routine 2200 (Given - Provider: Meghan Bartlett RN) sertraline (Zoloft) tablet 100 mg 100 mg, Oral, DAILY, First dose on 05/24/22 at 0900, Until Discontinued, Routine 0831 ([facility] Hold - Provider: Admin Adt - Reason: Transfer to a Procedural area)0900 (Automatically Held - Provider: Admin Adt)1404 ([facility] Unhold - Provider: Admin Adt) 0810 (Given - Provider: Ray De La Garza, EDWARD) Continuous Medication Order 05/23/2022 05/24/2022 05/25/2022 sodium [...] ([facility] Unhold - Provider: Yoli Gu, EDWARD)1153 (See Alternative - Provider: Yoli Gu RN) [...] (See Alternative - Provider: Ray De La Garza, EDWARD) acetaminophen (Tylenol) tablet 1,000 mg(Linked Group 2) [...] ([facility] Unhold - Provider: Yoli Gu RN)1153 (Given - Provider: Yoli Gu RN) 0810 (Given - Provider: Ray De La Garza, EDWARD) bacitracin zinc-polymyxin B (Polysporin) ointment (CANCELED) ONCE [...] - Reason: Transfer to a Procedural area)1404 ([facility] Unhold - Provider: Admin Adt) bisacodyl EC [...] be given concomitantly for constipation., Routine 0831 ([facility] Hold - Provider: Admin Adt - Reason: Transfer to a Procedural area)1404 ([facility] Unhold - Provider: Admin Adt) BUpivacaine-EPINEPHrine (Marcaine-epiNEPHrine) 0.25 %-1:200,000 injection (CANCELED) ONCE PRN, Starting on 05/24/22 at 0937, Until 05/25/22 at 1631, Intra-Operative (Intra-Procedure), Routine 0937 (Given - Provider: Main Trevino MD) hydrALAZINE (Apresoline) (20 mg/mL) injection 10 mg 10 mg, Intravenous, EVERY 2 HOURS PRN, Starting on 05/24/22 at 0138, Until 05/25/22 at 1631, High Blood Pressure, For SBP greater than 160 mmHg. May repeat once in 15 minutes if blood pressure remains greater than 160 mmHg.Use if labetalol ineffective after 2 doses, Routine 0831 ([facility] Hold - Provider: Admin Adt - Reason: Transfer to a Procedural area)1124 ([facility] Unhold - Provider: Yoli Gu RN) labetaloL (Normodyne) (5 mg/mL) injection solution 20 mg 20 mg, Intravenous, EVERY 2 HOURS PRN, Starting on 05/24/22 at 0138, Until 05/25/22 at 1631, High Blood Pressure, SBP greater than 160 mmHg. May repeat once in 15 minutes if blood pressure remains greater than 160 mmHg., Routine 0831 ([facility] Hold - Provider: Admin Adt - Reason: Transfer to a Procedural area)1124 ([facility] Unhold - Provider: Yoli Gu RN) lidocaine (Xylocaine) 2 % viscous solution 15 mL 15 mL, Mucous Membrane, EVERY 4 HOURS PRN, Starting on 05/24/22 at 1823, Until 05/25/22 at 1631, for sore throat, Gargle and spit (max of 8 doses per 24 hours period), Routine 1840 (Given - Provider: aRy De La Garza RN) ondansetron (pf) (Zofran) (2 mg/mL) injection 4 mg(Linked Group 3) 4 mg, Intravenous, EVERY 8 HOURS PRN, Starting on 05/24/22 at 0138, Until 05/25/22 at 1631, Nausea, Vomiting, May repeat times one in 30 minutes if ineffective. If multiple antiemetics are ordered, use ondansetron first, prochlorperazine second, and metoclopramide third. 0831 ([facility] Hold - Provider: Admin Adt - Reason: Transfer to a Procedural area)1404 ([facility] Unhold - Provider: Admin Adt) ondansetron ODT (Zofran-ODT) disintegrating tablet 4 mg(Linked Group 3) 4 mg, Oral, EVERY 8 HOURS PRN, Starting on 05/24/22 at 0138, Until 05/25/22 at 1631, Nausea, May repeat in 30 minutes if ineffective. If multiple antiemetics are ordered, use ondansetron first, prochlorperazine second, and metaclopramide third., Routine 0831 ([facility] Hold - Provider: Admin Adt - Reason: Transfer to a Procedural area)1404 ([facility] Unhold - Provider: Admin Adt) oxyCODONE (Roxicodone) tablet 10-15 mg(Linked Group 4) 10-15 mg, Oral, EVERY 4 HOURS PRN, Starting on 05/24/22 at 0138, Until 05/25/22 at 1631, Pain, severe pain (7-10), Initial dose 10mg. If pain control not adequate in 60 minutes, give additional 5mg., Routine 0831 ([facility] Hold - Provider: Admin Adt - Reason: Transfer to a Procedural area)1124 ([facility] Unhold - Provider: Yoli Gu RN) oxyCODONE (Roxicodone) tablet 5-10 mg(Linked Group 4) 5-10 mg, Oral, EVERY 4 HOURS PRN, Starting on 05/24/22 at 0138, Until 05/25/22 at 1631, Pain, moderate pain (4-6), Initial dose 5mg. If pain control not adequate in 60 minutes, give additional 5mg., Routine 0831 ([facility] Hold - Provider: Admin Adt - Reason: Transfer to a Procedural area)1124 ([facility] Unhold - Provider: Yoli Gu, EDWARD) polyethylene glycoL (Miralax) packet 17 g [...] be given concomitantly for constipation., Routine 0831 ([facility] Hold - Provider: Admin Adt - Reason: Transfer to a Procedural area)1404 ([facility] Unhold - Provider: Admin Adt) prochlorperazine (Compazine) (5 mg/mL) injection 10 mg(Linked Group 5) 10 mg, Intravenous, EVERY 6 HOURS PRN, Starting on 05/24/22 at 0138, Until 05/25/22 at 1631, Nausea, Vomiting, If multiple antiemetics are ordered, use ondansetron first, prochlorperazine second, and metoclopramide third. , Routine 0831 ([facility] Hold - Provider: Admin Adt - Reason: Transfer to a Procedural area)1124 ([facility] Unhold - Provider: Yoli Gu RN) prochlorperazine (Compazine) tablet 10 mg(Linked Group 5) 10 mg, Oral, EVERY 6 HOURS PRN, Starting on 05/24/22 at 0138, Until 05/25/22 at 1631, Nausea, Vomiting, If multiple antiemetics are ordered, use ondansetron first, prochlorperazine second and metoclopramide third. PO Preferred. If patient unable to take PO, may give IV if ordered., Routine 0831 ([facility] Hold - Provider: Admin Adt - Reason: Transfer to a Procedural area)1124 ([facility] Unhold - Provider: Yoli Gu RN) Linked [...] Routine documented in this encounter Care Teams Parts Salvager Relationship Specialty Start Date End Date Irma Gates APRN [address] [place] [address] PCP - General Family Medicine 09/20/20 08/20/22 documented as of this encounter
--- OUTSIDE RECORDS SUMMARY | 2024-02-29 15:49 | XMS_ITS | Encounter Summary ---
Author Organization [facility] Address [facility] [place] [address] Care Team Providers Care Reimbursement Analyst Name Role Phone Irma Gates APRN Primary Care Provider Encounter Details Date Type Department Care Team (Late st Contact Info) Description 10/18/2020 10:51 AM EDT Anesthesia Event [place] [address] Tremaine Burton MD [facility] [place] [address] Annalise Estrada MD [facility] [place] [address] Anesthesia Record Procedure Summary Procedure Name Responsible Anesthesiologist Anesthesia Start Time Anesthesia Stop Time SURGICAL EXTRACTIONS REQUIRING ELEVATION OF MUCOPERIOSTEAL FLAP AND REMOVAL OF BONE OR SECTION OF TOOTH (WRVU 1.09) (Bilateral: Mouth) Tremaine Burton MD 10/18/20 1051 10/18/20 1337 Events Date Time Event Comment 10/18/2020 1046 1051 AN Verify 1051 Start 1051 An Start Data 1058 An Induction 1107 An Intubation 1111 Anesthesia Ready 1330 Extubation/LMA Out 1330 an stop data 1337 Recovery or ICU Handoff Candi ent care was transferred to the destination unit staff after review of the patient's medical history, current anesthetic/surgical status and plan, according to the Provider Handoff Checklist. 1337 Stop Meds Name Total fentaNYL 100 mcg IV Lidocaine 100 mg Propofol 200 mg Propofol INF 705.35 mg Dexamethasone 4 mg Ondansetron 4 mg Rocuronium 40 mg clindamycin (Cleocin) 900 mg in dextrose 5% 50 mL infusion 900 mg Neostigmine 3 mg Glycopyrrolate 0.6 mg Lactated Ringers 1,000 mL * Agents Name O2 Air N2O Sevoflurane (et) * Blood No blood administrations on file. Lines, Drains, and Airways Type Details Placement Removal (RETIRED) Peripheral IV Line - Single Lumen 10/18/20; 1038; basilic vein (medial side of arm), left, cephalic vein (lateral side of arm), left; [id number]-[id number]-fogplr catheter system; 20 gauge; Aamir Peñaloza RN; 10/18/20; 1603 10/18/20 1038 by Kalyn Reyes RN 10/18/20 1603 by Silvia Denny RN ETT Mask Ventilation: Ea sy (1); ETT Type: Cuffed, Nasal; ETT Size: 6.5 mm; Indirect: Video; Notes: Asleep, Pre-O2; Attempts: 1; Laryngoscopy Grade: 1; ETT Placement Verified By: Auscultation, Capnometry, Visual; Secured at Teeth: 25 cm; Inserted by: itzel; Removal Date: 10/18/20; Removal Time: 1330 10/18/20 1112 by Lela Gage MD 10/18/20 1330 by Lela Gage MD Incision 10/18/20; 1119; Bilateral, upper; gum (Dental extraction); 10/21/21 (LDA cleanup utility RA#[id number]); 1715 (LDA cleanup utility RA#[id number]) 10/18/20 1119 by Iesha Isaac RN 10/21/21 1715 by Nataly Vela Incision 10/18/20; 1120; Bilateral, lower; gum (Dental Extractions); 10/21/21 (LDA cleanup utility RA#[id number]); 1715 (LDA cleanup utility RA#[id number]) 10/18/20 1120 by Iesha Isaac RN 10/21/21 1715 by Nataly Vela documented in this encounter Social History Tobacco [...] OR Notes * Anesthesia Postprocedure Evaluation - Lela Gage MD - 10/18/2020 1:49 PM EDT Department of Anesthesiology Post-procedure Note Patient: Chapin Costa Procedure Summary Date: 10/18/20 Room / Location: [facility] OR [address] [place] [address] OSC Anesthesia Start: 1051 Anesthesia Stop: 1337 Procedures: SURGICAL EXTRACTIONS REQUIRING ELEVATION OF MUCOPERIOSTEAL FLAP AND REMOVAL OF BONE OR SECTION OF TOOTH (WRVU 1.09) (Bilateral Mouth) SURGICAL EXTRACTIONS, REMOVAL OF IMPACTED TOOTH, COMPLETELY BONY (WRVU 1.93) (N/A Mouth) EXTRACTION, ERUPTED TOOTH OR EXPOSED ROOT (WRVU 0.62) (N/A Mouth) SURGICAL EXTRACTIONS, REMOVAL OF IMPACTED TOOTH, COMPLETELY BONY WITH UNUSUAL SURGICAL COMPLICATIONS (WRVU 2.91) (N/A Mouth) ALVEOPLASTY,IN CONJUNCTION WITH EXTRACTIONS,PER QUADRANT,ENT (WRVU 4.06) (N/A Mouth) Diagnosis: Dental caries (dental caries) Surgeons: Shan Rivero MD Responsible Provider: Tremaine Burton MD Anesthesia Type: general ASA Status: 3 All Anesthesia Providers: Anesthesiologist: Tremaine Burton MD Associate Professor Of Musicology: Lela Gage MD Vitals Value Taken Time BP 150/107 10/18/20 1346 Temp 36.2 ??C (97.2 ??F) 10/18/20 1333 Pulse 99 10/18/20 1348 Resp 18 10/18/20 1333 SpO2 98 % 10/18/20 1348 Pain Level Vitals shown include unvalidated device data. Patient Location: PACU/[facility] Level of Consciousness: Conscious but Sleepy Pain Management: Satisfactory Analgesia PONV: None Cardiovascular Status: At Baseline Respiratory Status: Nasal airway, Supplemental O2 (NC or FM) and Stable Respiratory Status Postoperative Fluid Status: Intravascular EUvolemia Possible Anesthetic Complications: NONE apparent at time of evaluation Final Primary Anesthesia Type: General (The anesthetic type performed was the same as planned.) Comments: Pt initially obstructing following extubation but moving air adequately with appropriate O2 sats on arrival to recovery. * Anesthesia Preprocedure Evaluation - Tremaine Burton MD - 10/17/2020 7:34 PM EDT Pre-Anesthesia Evaluation for: Chapin Costa a 49 y.o. male. Procedure(s): SURGICAL EXTRACTIONS REQUIRING ELEVATION OF MUCOPERIOSTEAL FLAP AND REMOVAL OF BONE OR SECTION OF TOOTH (WRVU 1.09) SURGICAL EXTRACTIONS, REMOVAL OF IMPACTED TOOTH, COMPLETELY BONY (WRVU 1.93) Patient Active Problem List Diagnosis ??? Hydrocephalus ??? Seizures ??? Cervicalgia ??? Headache ??? Persistent headaches ??? S/P NUCLEAR AUXILIARY OPERATOR shunt Past Medical History: Diagnosis Date ??? Depression [...] Physical Exam: Preprocedure Vitals Current as of 08/1933 No BP, pulse, respiration, SpO2, or temperature recorded. Height: 167.6 cm (5' 6) (09/06/20) Weight: 90.7 kg (200 lb) (09/06/20) BMI: 32.28 IBW: 63.8 kg (140 lb 9.2 oz) Airway Assessment: Mallampati: II TM distance: >3 FB Neck ROM: full Cardiovascular Assessment: Rhythm: regular Rate: normal Pulmonary Assessment: breath sounds clear to auscultation Dental Assessment: Misc Assessment: Last Filed Perioperative Cognitive Screening None Anesthesia Plan: ASA 3 general, with a(n) intravenous induction 49 y.o. male with dental caries scheduled for tooth extraction. Medical History: hydrocephalus s/p NUCLEAR AUXILIARY OPERATOR shunt, seizures, hearing loss in R ear, depression Anesthetic History: Previously tolerated GA. No airway records Allergies reviewed Labs reviewed Anesthetic Plan: GA w/ nasal ETT Standard ASA monitoring PIV access Lela Gage MD 10/17/2020 Region - Other Informed Consent: Anesthetic plan and risks discussed with patient. Plan discussed with resident and attending. Anesthesia Screening documented in this encounter Plan of Treatment Not on file documented as of this encounter Visit Diagnoses Not on filedocumented in this encounter Administered Medications Inactive Administered Medications - up to 3 most recent administrations Medication Order MAR Action Action Date Dose Rate Site clindamycin (Cleocin) 900 mg in dextrose 5% 50 mL infusion 900 mg, Intravenous, ONCE, 1 dose, On Thu10/17/20 at 2215, Administer over 30 Minutes, Indication for (Active or Suspected): Prophylaxis Given 10/18/2020 10:54 AM EDT 900 mg dexamethasone (Decadron) injection Intravenous, PRN, Starting on Sandra 10/18/20 at 1126, Until Sandra 10/18/20 at 1337, Anesthesia Intra-op, Routine Given 10/18/2020 11:26 AM EDT 4 mg fentaNYL (pf) (50 mcg/mL) multi-dose injection Intravenous, PRN, Starting on Sandra 10/18/20 at 1058, Until Sandra 10/18/20 at 1337, Anesthesia Intra-op, Routine Given 10/18/2020 11:13 AM EDT 25 mcg Given 10/18/2020 11:06 AM EDT 25 mcg Given 10/18/2020 10:58 AM EDT 50 mcg glycopyrrolate (Robinul) (0.2 mg/mL) multi-dose injection Intravenous, PRN, Starting on Sandra 10/18/20 at 1320, Until Sandra 10/18/20 at 1338, Anesthesia Intra-op, Routine Given 10/18/2020 1:20 PM EDT 0.6 mg lactated ringers infusion Intravenous, CONTINUOUS PRN, Starting on Sandra 10/18/20 at 1051, Until Sandra 10/18/20 at 1337, Anesthesia Intra-op New Bag 10/18/2020 12:04 PM EDT New Bag 10/18/2020 10:51 AM EDT lidocaine (pf) (Xylocaine) (20 mg/mL) 2% injection syringe Intravenous, PRN, Starting on Sandra 10/18/20 at 1058, Until Sandra 10/18/20 at 1337, Anesthesia Intra-op, Routine Given 10/18/2020 10:58 AM EDT 100 mg neostigmine (Bloxiver) (1 mg/mL) injection Intravenous, PRN, Starting on Sandra 10/18/20 at 1320, Until Sandra 10/18/20 at 1338, Anesthesia Intra-op, Routine Given 10/18/2020 1:20 PM EDT 3 mg ondansetron (pf) (Zofran) (2 mg/mL) injection Intravenous, PRN, Starting on Sandra 10/18/20 at 1126, Until Sandra 10/18/20 at 1337, Anesthesia Intra-op, Routine Given 10/18/2020 11:26 AM EDT 4 mg propofoL (Diprivan) 10 mg/mL bolus injection (Anesthesia) Intravenous, PRN, Starting on Sandra 10/18/20 at 1058, Until Sandra 10/18/20 at 1337, Anesthesia Intra-op Given 10/18/2020 10:58 AM EDT 200 mg propofoL (Diprivan) infusion Intravenous, CONTINUOUS PRN, Starting on Sandra 10/18/20 at 1144, Until Sandra 10/18/20 at 1337, Anesthesia Intra-op, Routine Rate/Dose Change 10/18/2020 1:08 PM EDT 30 mcg/kg/min 15.93 mL/hr New Bag 10/18/2020 11:44 AM EDT 75 mcg/kg/min 39.825 mL /hr New Bag 10/18/2020 11:28 AM EDT 50 mcg/kg/min 26.55 mL/ hr rocuronium (Zemuron) (10 mg/mL) multi-dose injection Intravenous, PRN, Starting on Sandra 10/18/20 at 1058, Until Sandra 10/18/20 at 1337, Anesthesia Intra-op, Routine Given 10/18/2020 10:58 AM EDT 40 mg documented in this encounter Care Teams Reimbursement Analyst Relationship Specialty Start Date End [place] [address] PCP - General Family Medicine 09/20/20 08/20/22 documented as of this encounter
--- OUTSIDE RECORDS SUMMARY | 2024-02-29 15:49 | XMS_ITS | Encounter Summary ---
Author Organization [facility] [place] [address] Care Team Providers Care Bingo Clerk Name Role Phone Irma Gates APRN Primary Care Provider Encounter Details Date Type Department Care Team (Latest Contact Info) Description 02/20/2022 Travel Social History Tobacco Use Types Packs/Day [...] on filedocumented in this encounter Care Teams Bingo Clerk Relationship Specialty Start Date End Date Irma Gates APRN [address] [place] [address] PCP - General Family Medicine 09/20/20 08/20/22 documented as of this encounter
--- OUTSIDE RECORDS SUMMARY | 2024-02-29 15:49 | XMS_ITS | Encounter Summary ---
Author Organization [facility] [place] [address] Care Team Providers Care Marker Shipments Name Role Phone Rosario Varela APRN Primary Care Provider [phone] Encounter Details Date Type Department Care Team (Late st Contact Info) Description 05/01/2020 [place] [address] Dianelys Avelar Social History Tobacco Use Types [...] encounter Miscellaneous Notes * Telephone Encounter - Vanessa Sol - 05/01/2020 4:45 PM EST I spoke with Mary Jessica PA-C before calling Chapin. She is advising that Chapin stop taking this medication and she will speak with Dr. Almanza. She did say that it shows us that his shunt is working which gives us additional information. I told Chapin that we would be in touch once Mary has had a chance to speak with Dr. Almanza. He would like us to reach his mom at: #[phone] * Telephone Encounter - Dianelys Avelar - 05/01/2020 4:37 PM EST Caller: Patient Best number to reach caller: [phone] Reason for call: Patient started new med today- acetaZOLAMIDE and is reporting soon after taking first dose, he has numbeness on rt side of face and bad headache Recent Surgery?: No documented in this encounter Plan of Treatment Not on file documented as of this encounter Visit Diagnoses Not on filedocumented in this encounter Care Teams Marker Shipments Relationship Specialty Start Date End Date Rosario Varela APRN [address] [place] [id number] PCP - General Family Medicine 02/03/18 09/19/20 documented as of this encounter
--- OUTSIDE RECORDS SUMMARY | 2024-02-29 15:50 | XMS_ITS | Encounter Summary ---
Author Organization [facility] [place] [address] Care Team Providers Care Barber Shop Manager Name Role Phone Rosario Varela APRN Primary Care Provider [phone] Encounter Details Date Type Department Care Team (Late st Contact Info) Description 01/17/2019 Tele[place] [address] Rhoda Zapata Social History Tobacco Use Types [...] Miscellaneous Notes * Telephone Encounter - Vanessa Slo - 01/17/2019 2:20 PM EST I spoke with Cl Atkins PA-C who was agreeable to us order a XR shunt series as pt. Would like tohave XR as it was recommended by Dr. Anderson when he spoke with the [facility] ED. XR ordered and faxed to [facility] #[phone] * Telephone Encounter - Vanessa Sol - 01/17/2019 12:57 PM EST I was able to speak with Chapin. He was seen in the ER at [facility] yesterday after having a seizure at home. He had a CT head which demonstrated collapsed ventricles so they contacted NSGY at [facility]. Dr. Anderson recommended a shunt series which per Chapin was not done at the OSH. He would like to get this done so he can ensure there is no issue with his shunt. He would like to have this done at his local hospital which is [facility]. I told Chapin I would discuss with our provider in clinic and let him know what their decision is. * Telephone Encounter - Vanessa Sol - 01/17/2019 12:42 PM EST I called Chapin and SANTO asking him to call us back to discuss the call he placed to our office this morning. * Telephone Encounter - Rhoda Zapata - 01/17/2019 11:00 AM EST Caller: Patient If not the patient: Name of caller: Relationship to patient: Personal Rep on file?: Best time to reach caller: any Best number to reach caller: [phone] (H) Reason for call: Pt went to ED last night and spoke ED spoke w Dr. Anderson. Had seizure, had CTH in eDH, wants appt to f/u - believes shunt malfunction. Please call and advise. Recent Surgery?: no If before 4:00 pm: Inform caller that the typical expectation for a call back is within 1-2 hours. If after 4:00 pm: Inform caller that if the nurse does not call back by the end of the day, they will be called in the AM of the next business day. documented in this encounter Plan of Treatment Not on file documented as of this encounter Visit Diagnoses Not on filedocumented in this encounter Care Teams Barber Shop Manager Relationship Specialty Start Date End Date Rosario Varela APRN [address] [place] [address] PCP - General Family Medicine 02/03/18 09/19/20 documented as of this encounter
--- OUTSIDE RECORDS SUMMARY | 2024-02-29 15:50 | XMS_ITS | Encounter Summary ---
Author Organization [facility] [place] [address] Care Team Providers Care Sand Polisher Name Role Phone Rosario Varela APRN Primary Care Provider [phone] Reason for Visit * Reason Onset Date Comments Medication Refill 02/11/2019 Encounter Details Date Type Department Care Team (Late st Contact Info) Description 02/11/2019 Refill Neurology at [address] [id number] Irvin New MD Chronic migraine without aura without status migrainosus, not intractable Social History Tobacco Use Types Packs/Day Years [...] of this encounter Visit Diagnoses Diagnosis Chronic migraine without aura without status migrainosus, not intractable Chronic migraine without aura, without mention of intractable migraine without mention of status migrainosus documented in this encounter Care Teams Sand Polisher Relationship Specialty Start Date End Date Rosario Varela APRN [address] [place] [address] PCP - General Family Medicine 02/03/18 09/19/20 documented as of this encounter
--- OUTSIDE RECORDS SUMMARY | 2024-02-29 15:50 | XMS_ITS | Encounter Summary ---
[place] [address] Care Team Providers Care Appeals Manager Name Role Phone Rosario Varela APRN Primary Care Provider [phone] Reason for Visit * Reason Onset Date Comments Appointment 03/18/2019 Encounter Details Date Type Department Care Team (Late st Contact Info) Description 03/18/2019 [place] [phone] Arsalan Gracia Appointment Social History Tobacco Use Types Packs/Day [...] encounter Miscellaneous Notes * Telephone Encounter - Arsalan Gracia - 03/18/2019 12:03 PM EST Caller and relationship to patient (if other than patient): Chapin Costa Phone: cell [phone] Best time to reach caller: this afternoon Message or Reason for Call: Chapin Costa needs to schedule his week long EEG study. Appt Needed and Reason: ? Provider: ? documented in this encounter Plan of Treatment Not on file documented as of this encounter Visit Diagnoses Not on filedocumented in this encounter Care Teams Appeals Manager Relationship Specialty Start Date End Date Rosario Varela APRN [address] [place] [address] PCP - General Family Medicine 02/03/18 09/19/20 documented as of this encounter
--- OUTSIDE RECORDS SUMMARY | 2024-02-29 15:50 | XMS_ITS | Encounter Summary ---
Author Organization [facility] [place] [address] Care Team Providers Care Block Captain Name Role Phone Rosario Varela APRN Primary Care Provider [phone] Encounter Details Date Type Department Care Team (Late st Contact Info) Description 03/11/2019 [place] [address] Lul Leyva MD [facility] [place] [address] Seizures Social History Tobacco Use Types Packs/Day [...] documented as of this encounter Results * EEG awake, asleep, drowsy, routine (03/17/2019 1:28 PM EST) Narrative Lul Leyva MD - 03/17/2019 1:28 PM EST Lul Leyva MD ? 03/19/2019 10:20 PM [facility] Department of Neurology Outpatient EEG Report Name of the Patient: ??Chapin Costa Date of : ?1970 Date of Service: ?03/17/2019 Referring physician: ?Autumn BRIEF HISTORY: Chapin Costa is a 48 y.o. year old patient with seizures. MEDICATIONS: Current Outpatient Medications Medication Sig Dispense Refill ? ? metoprolol succinate XL (Toprol-XL) 25 mg Tablet Sustained Release 24 hr Take 25 mg by mouth daily. ? rizatriptan (MAXALT) 10 mg Tablet Take 1 tablet by mouth as needed for Migraine. 10 tablet 0 ? ? topiramate (TOPAMAX) 25 mg Tablet Take 1 tablet by mouth 2 times daily. 60 tablet 5 ? ? candesartan (ATACAND) 8 mg Tablet Take 1 tablet by mouth daily. (Patient not taking: Reported on 03/17/2019) 90 tablet 3 ? ? amitriptyline (ELAVIL) 25 mg Tablet Take 25 mg by mouth nightly. ? gabapentin (NEURONTIN) 100 mg Capsule 100 mg AM/ 200 mg HS 90 capsule 3 ? ? cyclobenzaprine (FLEXERIL) 5 mg Tablet Take 1 tablet by mouth nightly. (Patient not taking: Reported on 03/17/2019) 30 tablet 0 ? ? carBAMazepine (TEGRETOL) 200 mg Tablet Take ??by mouth 2 times daily. Indications: 600mg in AM, 400mg in PM ? levothyroxine (SYNTHROID) 25 mcg Tablet Take 25 mcg by mouth daily. ? sertraline (ZOLOFT) 100 mg Tablet Take 100 mg by mouth daily. ?? 0 ? ? testosterone cypionate (DEPOTESTOSTERONE CYPIONATE) 200 mg/mL Oil Inject ??into the muscle every 14 days. ??0 ? ? gemfibrozil (LOPID) 600 mg Tablet Take 600 mg by mouth 2 times daily (before meals). ?? No current facility-administered medications for this encounter. ?? METHODS: A 21 channel digitized electroencephalogram was performed in the [facility]. The 10/20 international system of electrode placement was used and bipolar and referential electrode montages were recorded. ??In addition to EEG the patient was monitored for EKG and lateral/vertical eye movements. Video was recorded during the session. The duration of the recording was 25 minutes. CRYSTAL LAPPER'S REPORT: Performed by: SR Patient was not sleep deprived. Sleep was attained. Photic stimulation was performed. Hyperventilation was performed. Effort was was not adequate. Movement and other artifact was not significant. Comments: ??None. ELECTROENCEPHALOGRAPHER'S REPORT: Background During the awake state with the eyes closed the background consisted of a normal amplitude, 10.5 Hz posterior reactive rhythm that attenuated appropriately with eye opening. Beta activity was distributed diffusely with an anterior predominance. There was a normal anterior-posterior voltage gradient. With eye opening the background activity changed to a low voltage mixture of alpha, beta, and occasional theta range frequencies. There were no significant asymmetries of background activity noted. Sleep Stage II sleep was obtained and consisted of symmetrical sleep spindles and vertex sharp waves. Hyperventilation Hyperventilation resulted in mild diffuse slowing of the background activity without appearance of abnormal activity. Photic Stimulation Photic stimulation using a step-phillips increase in photic frequency varying from 1-21 Hertz resulted in bilateral driving responses at multiple frequencies but no appearance of abnormal activity. Abnormal EEG Activity Scattered sharp activity is seen bilaterally, involving predominantly the parasaggital leads (P3, P4) EKG EKG revealed normal sinus rhythm. PRIOR EEG: No previous EEG reports were available. INTERPRETATION/CLINICAL CORRELATION: This EEG is likely within normal limits during the awake and sleep states as well as during the activation procedures of hyperventilation and photic stimulation. There is scattered sharp activity predominantly in the parasaggital leads that is not clearly epileptiform. Such a finding may be observed in the context of antiepileptic drug effects in a patient with underlying generalized epilepsy. ??No seizures or typical clinical events were captured. Bell Arias MD PGY-4 Neurology resident Pager #[phone] 03/17/2019 5:58 PM. Neurology Attending I have personally reviewed the EEG, and I agree with the details as written. ?? The above report was formulated in discussion with me at the time of EEG reading, and I agree with it as documented. Lul Leyva MD [place] [address] Pager: [phone], #[phone] Email: [email or web address] CC: Rosario Varela APRN Lul Leyva MD NEUROLOGY ORDERABLES documented in this encounter Visit Diagnoses Diagnosis Seizures Other convulsions Seizures Other convulsions documented in this encounter Care Teams Block Captain Relationship Specialty Start Date End Date Rosario Varela APRN [address] [place] [address] PCP - General Family Medicine 02/03/18 09/19/20 documented as of this encounter
--- OUTSIDE RECORDS SUMMARY | 2024-02-29 15:50 | XMS_ITS | Encounter Summary ---
[place] [address] Care Team Providers Care Ophthalmologist Retina Specialist Name Role Phone Rosario Varela APRN Primary Care Provider [phone] [phone] Encounter Details Date Type Department Care Team (Late st Contact Info) Description 12/07/2019 [place] [address] Dianelys Avelar Social History Tobacco Use Types [...] encounter Miscellaneous Notes * Telephone Encounter - Rhoda Zapata - 12/08/2019 1:50 PM EDT OVN complete = Miriam sanabria requesting Faxed to [phone] * Telephone Encounter - Dianelys Avelar - 12/07/2019 2:52 PM EDT Once OV notes from 12/06/19 are closed, please fax to Miriam, at [phone] documented in this encounter Plan of Treatment Not on file documented as of this encounter Visit Diagnoses Not on filedocumented in this encounter Care Teams Ophthalmologist Retina Specialist Relationship Specialty Start Date End Date Rosario Varela APRN [address] [place] [address] PCP - General Family Medicine 02/03/18 09/19/20 documented as of this encounter
--- OUTSIDE RECORDS SUMMARY | 2024-02-29 15:50 | XMS_ITS | Encounter Summary ---
[place] [address] Care Team Providers Care Sap Abap Developer Name Role Phone Rosario Varela APRN Primary Care Provider [phone] Encounter Details Date Type Department Care Team (Late st Contact Info) Description 01/17/2019 Orders [place] [address] Vanessa Sol RN S/P THERMOCOUPLE TESTER shunt Social History Tobacco Use Types Packs/Day [...] of this encounter Visit Diagnoses Diagnosis S/P THERMOCOUPLE TESTER shunt Presence of cerebrospinal fluid drainage device documented in this encounter Care Teams Sap Abap Developer Relationship Specialty Start Date End Date Rosario Varela APRN [address] [place] [address] PCP - General Family Medicine 02/03/18 09/19/20 documented as of this encounter
--- OUTSIDE RECORDS SUMMARY | 2024-02-29 15:50 | XMS_ITS | Encounter Summary ---
[place] [address] Care Team Providers Care Military Administrative Technician Name Role Phone Rosario Varela APRN Primary Care Provider [phone] [phone] Encounter Details Date Type Department Care Team (Late st Contact Info) Description 12/13/2019 Orders [place] [address] Meghan Rondon RN S/P SEXTON HELPER shunt Social History Tobacco Use Types Packs/Day [...] of this encounter Visit Diagnoses Diagnosis S/P SEXTON HELPER shunt Presence of cerebrospinal fluid drainage device documented in this encounter Care Teams Military Administrative Technician Relationship Specialty Start Date End Date Rosario Varela APRN [address] [place] [address] PCP - General Family Medicine 02/03/18 09/19/20 documented as of this encounter
--- OUTSIDE RECORDS SUMMARY | 2024-02-29 15:50 | XMS_ITS | Encounter Summary ---
[facility] [place] [address] Care Team Providers Care Construction Lineman Name Role Phone Rosario Varela APRN Primary Care Provider [phone] Encounter Details Date Type Department Care Team (Late st Contact Info) Description 01/17/2019 [place] [address] Dianelys Avelar Social History Tobacco Use Types [...] * Telephone Encounter - Vanessa Sol - 01/26/2019 12:09 PM EST I spoke with Chapin and relayed the message from Cl Atkins PA-C. He has an appt. With the headache clinic coming up and will hopefully find an answer as to why he has been having these headaches. * Telephone Encounter - Madina Abdalla - 01/25/2019 6:40 PM EST Cl, Patient's shunt series is available for your review. He can be reached at [phone]. Thank you, Coco * Telephone Encounter - Madina Abdalla - 01/18/2019 6:50 PM EST Imaging not complete as of 01/18/19 * Telephone Encounter - Dianelys Avelar - 01/17/2019 3:44 PM EST ----- Message from Vanessa Sol RN sent at 01/17/2019 2:24 PM EST ----- I ordered and faxed a XR shunt series for Chapin to [facility]. Can we get the images to [facility] once they have arrived pls! documented in this encounter Plan of Treatment Not on file documented as of this encounter Visit Diagnoses Not on filedocumented in this encounter Care Teams Construction Lineman Relationship Specialty Start Date End Date Rosario Varela APRN [address] [place] [address] PCP - General Family Medicine 02/03/18 09/19/20 documented as of this encounter
--- OUTSIDE RECORDS SUMMARY | 2024-02-29 15:50 | XMS_ITS | Encounter Summary ---
Author [facility] [place] [address] Care Team Providers Care Shoe Repairer Name Role Phone Rosario Varela APRN Primary Care Provider [phone] Encounter Details Date Type Department Care Team (Late st Contact Info) Description 01/16/2020 Orders Only [facility] [place] [address] Latoya Mccormack LNA Social History Tobacco Use Types Packs/Day Years [...] on filedocumented in this encounter Care Teams Shoe Repairer Relationship Specialty Start Date End Date Rosario Varela APRN [address] [place] [address] PCP - General Family Medicine 02/03/18 09/19/20 documented as of this encounter
--- OUTSIDE RECORDS SUMMARY | 2024-02-29 15:50 | XMS_ITS | Encounter Summary ---
[place] [address] Care Team Providers Care Hand Cultivator Name Role Phone Rosario Varela APRN Primary Care Provider [phone] [phone] Encounter Details Date Type Department Care Team (Latest Contact Info) Description 03/23/2019 11:59 PM EST Hospital Encounter [place] [address] Discharge Disposition: Home Social History Tobacco Use [...] Sign Reading Time Taken Comments Blood Pressure 135/81 03/23/2019 1:59 PM EST Pulse 95 03/23/2019 1:59 PM EST Temperature - - Respiratory Rate - - Oxygen Saturation - - Inhaled Oxygen Concentration - - Weight 77.5 kg (170 lb 12.8 oz) 020 1:59 PM EST With shoes Height 167.6 cm (5' 6) 03/23/2019 1:59 PM EST Reported Body Mass Index 27.57 03/23/2019 1:59 PM EST documented in this encounter Medications at Time of Discharge Medication Sig Dispensed Refills Start Date End Date levothyroxine (SYNTHROID) 25 mcg Tablet Take 25 mcg by mouth nightly. sertraline (ZOLOFT) 100 mg Tablet Take 150 mg by mouth daily. 0 03/19/2018 testosterone cypionate (DEPOTESTOSTERONE CYPIONATE) 200 mg/mL Oil Inject 250 mg into the muscle every 14 days. 0 05/03/2018 rizatriptan (MAXALT) 10 mg TabletIndications:Chroni c migraine without aura without status migrainosus, not intractable Take 1 tablet by mouth as needed for Migraine. 10 tablet 02/14/2019 09/02/2019 topiramate (TOPAMAX) 25 mg TabletIndications:Chroni c migraine without aura without status migrainosus, not intractable Take 1 tablet by mouth 2 times daily. 60 tablet 5 02/10/2019 09/24/2023 candesartan (ATACAND) 8 mg TabletIndications:Chroni c migraine without aura without status migrainosus, not intractable Take 1 tablet by mouth daily. 90 tablet 3 02/10/2019 01/16/2020 amitriptyline (ELAVIL) 25 mg Tablet Take 100 mg by mouth nightly. 05/24/2022 gabapentin (NEURONTIN) 100 mg Capsule 100 mg AM/ 200 mg HS 90 capsule 3 07/29/2018 05/24/2022 carBAMazepine (TEGRETOL) 200 mg TabletIndications:600mg in AM, 400mg in PM Take by mouth 2 times daily. Indications: 600mg in AM, 400mg in PM 03/28/2019 gemfibrozil (LOPID) 600 mg Tablet Take 600 mg by mouth 2 times daily (before meals). 05/24/2022 documented as of this encounter Plan of Treatment Not on file documented as of this encounter Visit Diagnoses Not on filedocumented in this encounter Care Teams Hand Cultivator Relationship Specialty Start Date End Date Rosario Varela APRN [address] [place] [address] PCP - General Family Medicine 02/03/18 09/19/20 documented as of this encounter
--- OUTSIDE RECORDS SUMMARY | 2024-02-29 15:50 | XMS_ITS | Encounter Summary ---
Author Organization [facility] [place] [address] Care Team Providers Care Monomer Recovery Operator Name Role Phone Rosario Varela APRN Primary Care Provider [phone] [phone] Encounter Details Date Type Department Care Team (Late st Contact Info) Description 01/16/2019 1:40 PM EST Ancillary Procedure Radiology Library at [facility] [place] [id number] Sofy Maya MD Social History Tobacco Use Types Packs/Day [...] FILM LIBRARY STORAGE ONLY CT HEAD Routine 01/16/2019 1:38 PM EST documented in this encounter Results * Film Library- Storage Only CT Head (01/16/2019 1:38 PM EST) Narrative [facility] [place] - 01/16/2019 1:38 PM EST This exam is auto-finalizing. It's purpose is for storage only. Sofy Maya MD IM FILM LIBRARY ORD ERABLES [place], [place] documented in this encounter Visit Diagnoses Not on filedocumented in this encounter Care Teams Monomer Recovery Operator Relationship Specialty Start Date End Date Rosario Varela APRN [address] [place] [address] PCP - General Family Medicine 02/03/18 09/19/20 documented as of this encounter
--- OUTSIDE RECORDS SUMMARY | 2024-02-29 15:50 | XMS_ITS | Encounter Summary ---
Author Organization [facility] Address [facility] [place] [address] Care Team Providers Care Commercial Mortgage Broker Name Role Phone Rosario Varela APRN Primary Care Provider [phone] [phone] Encounter Details Date Type Department Care Team (Latest Contact Info) Description 12/06/2019 3:14 PM EDT - 12/06/2019 11:59 PM EDT Hospital Encounter XRay at [address] [place] [address] Sonia Escalona CHEMISTRY RESEARCH ASSISTANT [facility] [place] [address] Cervicalgia Discharge Disposition: Home Social History Tobacco Use [...] the muscle every 14 days. 0 05/03/2018 benztropine (Cogentin) 0.5 mg Tablet Take 1 [...] daily. 11/17/2019 05/24/2022 rizatriptan (MAXALT) 10 mg TabletIndications:Chroni c migraine [...] Name Priority Date/Time Associated Diagnosis Comments XR CERVICAL SPINE AP FLEXION AND EXTENSION ONLY Routine 12/06/2019 3:34 PM EDT Cervicalgia documented in this encounter Results * XR Cervical Spine AP Flexion & Extension Only (12/06/2019 3:34 PM EDT) Anatomical Region Laterality Modality C-spine N/A Digital Radiogra phy Impressions 12/06/2019 4:07 PM EDT Several millimeters dynamic instability at C4-C5 on a background of degenerative disc disease. I have personally reviewed the image(s) and the resident's interpretation and agree with the findings, Emerita Bernstein MD at 12/06/2019 4:07 PM Thank you for letting us participate in the care of this patient. For questions regarding this report, please contact the number below. ? Electronically signed by: Emerita Bernstein MD, [facility] ([phone]), at 12/06/2019 4:07 PM Narrative 12/06/2019 4:07 PM EDT EXAMINATION: XR CERVICAL SPINE AP FLEXION AND EXTENSION ONLY CLINICAL HISTORY: Check dynamic alignment TECHNIQUE: AP, extension, and flexion views of the cervical spine. COMPARISON: MR cervical spine 08/16/2018. C-spine radiographs 01/22/2017. FINDINGS: Anterolisthesis of 2 mm at C4-C5 with flexion transitions to 1 mm retrolisthesis with extension. Additional 1 mm retrolisthesis at C3-C4 in extension only. No vertebral body height loss. Minimal disc space height loss at C6-C7 with anterior endplate osteophytes. No prevertebral soft tissue swelling. Partially imaged MANAGER LAB shunt. Procedure Note Emerita Bernstein MD - 12/06/2019 EXAMINATION: XR CERVICAL SPINE AP FLEXION AND EXTENSION ONLY CLINICAL HISTORY: Check dynamic alignment TECHNIQUE: AP, extension, and flexion views of the cervical spine. COMPARISON: MR cervical spine 08/16/2018. C-spine radiographs 01/22/2017. FINDINGS: Anterolisthesis of 2 mm at C4-C5 with flexion transitions to 1 mmretrolisthesis with extension. Additional 1 mm retrolisthesis at C3-C4 in extension only.No vertebral body height loss. Minimal disc space height loss at C6-C7 with anterior endplate osteophytes. No prevertebral soft tissue swelling.Partially imaged MANAGER LAB shunt. IMPRESSION Several millimeters dynamic instability at C4-C5 on a background ofdegenerative disc disease. I have personally reviewed the image(s) and the resident's interpretationand agree with the findings, Emerita Bernstein MD at 12/06/2019 4:07 PM Thank you for letting us participate in the care of this patient. Forquestions regarding this report, please contact the number below. Electronically signed by: Emerita Bernstein MD, [facility]([phone]), at 12/06/2019 4:07 PM Sonia Escalona APRN IMG DX ORDERABLES documented in this encounter Visit Diagnoses Diagnosis Cervicalgia documented in this encounter Care Teams Commercial Mortgage Broker Relationship Specialty Start Date End Date Rosario Varela APRN [address] [place] [address] PCP - General Family Medicine 02/03/18 09/19/20 documented as of this encounter
--- OUTSIDE RECORDS SUMMARY | 2024-02-29 15:50 | XMS_ITS | Encounter Summary ---
Author [place] [address] Care Team Providers Care Colloid Mill Operator Name Role Phone Rosario Varela APRN Primary Care Provider [phone] Encounter Details Date Type Department Care Team (Late st Contact Info) Description 02/10/2019 [place] [address] Rhoda Zapata Social History Tobacco Use Types [...] * Telephone Encounter - Rhoda Zapata - 02/10/2019 12:58 PM EST Images from the original note were not included. Cl Atkins PA to [facility] Neurosurgery Hadoop Developer ??? Sonia Dey MD ?? 9:21 AM Please coordinate neurosurg FU w/ neuro appointment. Ever February 05, 2019 Lela Salvador to Skye Monaco ?? 11:47 AM Please assist in coordinating Epi eval w/ NS. Thanks! Lela February 04, 2019 Sonia Dey MD to Lela Salvador ??? Cl Atkins PA ?? 3:30 PM Who should I contact in [place] to get this patient in ? We should coordinate epilepsy clinic evaluation Sonia Dey MD [facility] Neurology ?? ~~~~~~~~~~~~~~~~~~~~~~~~~~~~~~~~~~~~~~~~~~~~~~~~~~~~~~~~~~~~~~~~~~~~ Scheduled for same day per [facility] = no imaging needed documented in this encounter Plan of Treatment Not on file documented as of this encounter Visit Diagnoses Not on filedocumented in this encounter Care Teams Colloid Mill Operator Relationship Specialty Start Date End Date Rosario Varela APRN [address] [place] [address] PCP - General Family Medicine 02/03/18 09/19/20 documented as of this encounter
--- OUTSIDE RECORDS SUMMARY | 2024-02-29 15:50 | XMS_ITS | Encounter Summary ---
Author Organization [facility] [place] [address] Care Team Providers Care Windows Systems Administrator Name Role Phone Rosario Varela APRN Primary Care Provider [phone] Reason for Visit * Reason Comments Pain Management new patient Neck Pain * Consultation (Urgent) - Closed Specialty Diagnoses / Procedures Referred By Mansi cooley Referred To Contact [facility] Diagnoses Cervicalgia Pain - Persistant neck pain/ ?MBB/ XR 12/06/19 & MRI 08/16/18 in eD Sonia Escalona APRN [facility] [place] [address] [facility] [place] [address] Referral ID Status Reason Start Date Expiration Date V isits Requested Visits Authorized [id number] Closed Consult, Test & Treat 12/07/2019 12/06/2020 1 1 Encounter Details Date Type Department Care Team (Late st Contact Info) Description 01/16/2020 12:40 PM EST Office Visit [facility] [place] [address] Jorge Mojica MD [facility] [place] [address] Spondylosis without myelopathy or radiculopathy, cervical region; S/P EYELET OPERATOR shunt; Headache, chronic daily Social History Tobacco Use Types Packs/Day Years [...] Sign Reading Time Taken Comments Blood Pressure 110/81 01/16/2020 12:40 PM EST Pulse 87 01/16/2020 12:40 PM EST Temperature 37 ??C (98.6 ??F) 01/16/2020 12:40 PM EST Respiratory Rate - - Oxygen Saturation 98% 01/16/2020 12:40 PM EST Inhaled Oxygen Concentration - - Weight 86.2 kg (190 lb) 01/16/2020 12:40 PM EST Height - - Body Mass Index 30.68 03/23/2019 3:40 PM EST documented in this encounter Progress Notes * Jorge Mojica MD - 01/16/2020 12:40 PM EST [facility] Initial Consultation Note Date of visit: 01/16/20 : 1970 Consulting Physician: Sonia Escalona APRN [facility] [place] [address] [place] [address] Reason for consultation: I am seeing Mr. Costa at the request of Dr. Sonia Escalona in regards to patient???s neck pain and headaches. Chief complaint (CC): Neck pain, headaches History of Present Illness: Chapin Costa is a 49 y.o. male who presents with neck pain and headaches. Patient presents by himself. Per Sonia Escalona APRN 's note from 12/06/2019: Chapin Costa is a 49 yo male with a history of a VPS for congenital aqueductal stenosis, pseudoseizures, depression, cervical stenosis and chronic headaches who returns to clinic with complaintof worsening headaches in the past 1-2 weeks. He recently presented to OSH with symptoms of feeling unsteady and headaches. A head CT and and shunt series were completed on 11/30 at [facility] showing no change from prior imaging ([facility] 01/16/19 and shunt series 2017.). Codman Hakin valve remains set at 80 Setting is confirmed on 12/01/19 x-ray. A review of 12/01/[address] demonstrates slit like ventricles, similar to previous scans. He presented with very similar symptoms a year ago and Cl DURHAM performed a shunt tap that established shunt to be proximally functional. Again, patient denies symptoms of infection and is afebrile. There is tenderness to palpation over shunt valve and tubing in right neck. No skin breakdown or sign of infect ion appreciated. He has had a headache for the last month as well, and he is undergoing evaluation with Neurosurgeryfor that. He does have a h/o migraines, which were controlled up until a month ago. His headaches are more frontal. Onset/Context of pain: Pain started 6 months without inciting factor or trauma. Duration: 6 months Location: Axial neck pain Radiation: Non-radiating Quality: Throbbing, constant, dull Exacerbates:? No worsening factors Improves: No improving factors Pain Severity: 7/10 currently, 9 /10 at worst, 3/10 at best Numbness/Tingling: None. Prior h/o peripheral neuropathy at bilateral feet Weakness: None Bowel and bladder: No loss of control Sleep: Interrupted,but also has sleep apnea Mood: some days are good, some days are bad- He is going through a divorce. Functionally: Patient reports he is independent with ADLs. Denies red flags including bowel or bladder symptoms, fever, chills, saddle anesthesia, profound motor loss, history of cancer, history of immune compromise, weight loss. Denies any current use of anticoagulation or antibiotics medications. Does not have any h/o diabetes, renal or hepatic disease. Current pain treatments include: NSAIDs OTC without help. He has tried heat that has helped temporarily. Has done PT about 6 months ago, without persistent relief. Previous pain treatments included: Chapin Costa has not been seen at a pain clinic in the past. Psychology: None Acupuncture: None healthcare interpreter: None TENS Unit: None Injections: None Surgery: No spine surgery. Has had a EYELET OPERATOR shunt. [place] and [place] Prescription Monitoring Program (HOTEL MANAGER) were reviewed. Review of Pain Questionnaire: Please see the [facility] health questionnaire, which the patient completed and reviewed with me in detail. Review of Electronic Chart: Today I have also reviewed available medical information in the patient's medical record at [facility] including relevant provider notes, laboratory work, and imaging. Past Medical History: Patient Active Problem List Diagnosis Code ??? S/P EYELET OPERATOR shunt Z98.2 ??? Persistent headaches R51.9 ??? Headache R51.9 ??? Cervicalgia M54.2 ??? Seizures R56.9 Past Medical History: Diagnosis Date ??? Depression [...] Multiple revisions - ~46 prior revisions Medications: Medications were reconciled and updated in the electronic medical record. Current Outpatient Medications: ??? loratadine (Claritin) 10 mg Tablet, daily., Disp: , Rfl: ??? ketoconazole (NIZORAL) 2 % Cream, as needed., Disp: , Rfl: ??? benztropine (Cogentin) 0.5 mg Tablet, 1 tablet daily., Disp: , Rfl: ??? ibuprofen (Advil;Motrin) 600 mg Tablet, TK 1 T PO Q 8 H PRF PAIN, Disp: , Rfl: ??? acetaminophen (Tylenol) 500 mg Tablet, TK 1 T PO Q 6 H PRF PAIN, Disp: , Rfl: ??? Latuda 40 mg Tablet, 1 tablet nightly., Disp: , Rfl: ??? meloxicam (MOBIC) 15 mg Tablet, as needed., Disp: , Rfl: ??? risperiDONE (RisperDAL) 0.5 mg Tablet, TK 1 T PO HS, Disp: , Rfl: ??? sucralfate (Carafate) 1 [...] daily (before meals)., Disp: , Rfl: ??? tiZANidine (Zanaflex) 2 mg Tablet, Take 1-2 tablets by mouth 2 times daily as needed. Do not drink alcohol with tizanidine. Do not drive or operate heavy machinery while taking tizanidine., Disp:60 tablet, Rfl: 1 Allergies: Allergies Allergen Reactions ??? Penicillins ??? Tegaderm [Transparent Dressings] Itching ??? Vancomycin Analogues ??? Vancomycin Hcl Social History: Social History Socioeconomic History ??? Marital status: Spouse name: Not on file ??? Number of children: Not on file ??? Years of education: Not on file ??? Highest education level: Not on file Occupational History ??? Not on file Social Needs ??? Financial resource strain: Not on file ??? Food insecurity Worry: Not on file Inability: Not on file ??? Transportation needs Medical: Not on file Non-medical: Not on file Tobacco Use ??? Smoking status: Never Smoker ??? Smokeless tobacco: Never Used Substance and Sexual Activity ??? Alcohol use: No ??? Drug use: No ??? Sexual activity: Not on file Lifestyle ??? Physical activity Days per week: Not on file Minutes per session: Not on file ??? Stress: Not on file Relationships ??? Social connections Talks on phone: Not on file Gets together: Not on file Attends sabianism service: Not on file Active member of club or organization: Not on file Attends meetings of clubs or organizations: Not on file Relationship status: Not on file ??? Intimate partner violence Fear of current or ex partner: Not on file Emotionally abused: Not on file Physically abused: Not on file Forced sexual activity: Not on file Other Topics Concern ??? Not on file Social History Narrative ??? Not on file History of chemical dependency treatment: None Home situation: Lives with room mate, who is also one of his legal guardians Work situation: On disability Family history: Family History Problem Relation Age of Onset ??? Muscular Dystrophy Cousin No pertinent h/o arthritis or pain history in the family. Review of Systems : Constitutional: No unintentional weight loss, fevers, chills, or night sweats. HENT: No recent hearing changes. No difficulty swallowing. Eyes: No recent vision changes. Respiratory: No cough or shortness of breath. Cardiovascular: No chest pain or syncope. GI: No diarrhea, nausea, vomiting, or constipation. : No dysuria, hesitancy, or urgency. No incontinence. Musculoskeletal: No muscle weakness. Positive for above mentioned musculoskeletal findings. Neurologic: No numbness/tingling. No difficulty with balance. Positive for above mentioned neurological findings. Skin: No rashes or lesions. Psychiatric: Mood is down Heme/Lymph/Imm: No easy bleeding or bruising. Not on anticoagulation. Physical Exam: Blood pressure 110/81, pulse 87, temperature 37 ??C (98.6 ??F), weight 86.2 kg (190 lb), SpO2 98 %. General: Well-nourished, well-developed male HEENT: Head atraumatic, eyes are anicteric. Eyes are disconjugate. Mucosae are moist. Respiratory: Non-labored breathing pattern on RA. No respiratory distress. Cardiovascular: No edema or cyanosis. Abdominal: Soft, non-tender to palpation, non-distended Skin: No appreciable rashes or skin breakdown Psych: Appropriate affect, A&Ox3 , answers questions appropriately Musculoskeletal: Inspection - No gross appendicular or axial deformities Palpation - Tender to palpation at right greater than left cervical paraspinous muscles. ROM - Neck flexion/ extension/ lateral rotation is limited due to pain Special tests: - Spurling's test (+)on the R side> L side Neurologic: Alert and oriented x3, in moderate distress inspector packer glass container - II-XII are grossly intact Reflexes - 2+ and symmetric in bilateral biceps, triceps, brachioradialis, patellae, and Achilles. No ankle clonus. Babinski down going bilaterally. Meli's (-). Motor - Able to heel and tiptoe walk without difficulty. 5/5 in all planes of motion in all four extremities Sensory - Intact to light touch and pinprick at bilateral upper and lower extremities. Gait/Station: Normal gait. Diagnostic Tests: Most recent C-spine MRI was completed on 08/16/2018 . I personally reviewed the images with the patient. The impression is: IMPRESSION Similar pattern of degenerative changes in the cervical spine greatest at C5-6 and C6-C7. Stable disc extrusion at C5-6. Mild interval increase in disc extrusion at the C6-7 level with interval low progression of mass effect on the cord on the right. C-spine x-ray done on 12/06/2019 shows: COMPARISON: MR cervical spine 08/16/2018. C-spine radiographs 01/22/2017. ?? FINDINGS: Anterolisthesis of 2 mm at C4-C5 with flexion transitions to 1 mm retrolisthesis with extension. Additional 1 mm retrolisthesis at C3-C4 in extension only. No vertebral body height loss. Minimal disc space height loss at C6-C7 with anterior endplate osteophytes. No prevertebral soft tissue swelling. Partially imaged EYELET OPERATOR shunt. ?? IMPRESSION Several millimeters dynamic instability at C4-C5 on a background of degenerative disc disease. Assessment: Chapin Costa is a 49 y.o. male with congenital aqueductal stenosis s/p EYELET OPERATOR shunt with multiple revisions, pseudoseizures, depression, cervical stenosis and chronic headaches, now presents with worsening R>L neck pain, consistent with cervical spondylosis, cervicalgia and myofascial pain. Due to the nature of his medical condition of EYELET OPERATOR shunt related complication cannot be fully ruled outand he is pending work-up by neurosurgery for that. 1. Spondylosis without myelopathy or radiculopathy, cervical region 2. S/P EYELET OPERATOR shunt Plan/ Recommendations: We reviewed etiology, predisposing factor(s), natural course, imaging results as well as treatment options including medications, physical therapy/exercise, therapeutic injections, and surgery. The risks, consequences, alternatives, and benefits of various treatment options were discussed with the patient in great detail, including conservative management, injections and procedures. - Medications: Prescription for tizanidine was routed to his pharmacy. Prescription provided, uptitration instructions given & risks discussed at length. - Imaging: No new imaging indicated at this time. He is waiting for neurosurgical work-up of his VPshunt. - Physical therapy/modalities/DME: He will likely benefit from physical therapy. - Interventional/Surgical procedures: Depending on the results of his EYELET OPERATOR shunt work-up, he will return to the clinic for a trial of trigger point injections which would be done under fluoroscopic guidance due to presence of shunt conduit. Risks and benefits were discussed. He is willing to proceed.We will consider cervical medial branch blocks at C3-C4-C5 depending on the results of the trigger point injections. - Referrals: None indicated at this time. - Activity: Continue activity as tolerated. - We discussed the importance of maintaining regular exercise program and low impact aerobic activity such as regular walking and/or use of stationary bicycle. Preventative strategies were reviewed, specifically avoidance of maintaining continuous static postures (i.e. sitting, computer use, etc.) while allowing for frequent positional changes. Avoiding heavy lifting and high impact activities while in the midst of a pain flare.? We discussed the importance of posture, optimal pelvic/upper extremity biomechanics and the role of maintaining good core as well as hip/shoulder girdle strength in mitigating frequency and severity of recurrent pain flares. - We also went over such topics, if indicated, as lifestyle modification including home and work site ergonomics, optimal sleep hygiene, the role of psychosocial stressors as possible contributors tomuscle tension and increased pain perception, as well as role of nutrition in helping to dampen inflammatory component of pain and improving one's energy level and other health metrics. - Follow-up: After neurosurgical work-up is completed. Thank you for the opportunity to participate in this patient's care. Jorge Mojica MD Attending [facility]ician [facility] [address] [address] / CC: Sonia Escalona APRN [facility] [place] [address] documented in this encounter Plan of Treatment Not on file documented as of this encounter Visit Diagnoses Diagnosis Spondylosis without myelopathy or radiculopathy, cervical region S/P EYELET OPERATOR shunt Presence of cerebrospinal fluid drainage device Headache, chronic daily Headache documented in this encounter Care Teams Windows Systems Administrator Relationship Specialty Start Date End Date Rosario Varela APRN [address] [place] [address] PCP - General Family Medicine 02/03/18 09/19/20 documented as of this encounter
--- OUTSIDE RECORDS SUMMARY | 2024-02-29 15:50 | XMS_ITS | Encounter Summary ---
Author Organization [facility] Address [facility] [place] [address] Care Team Providers Care Tester Operator Name Role Phone Rosario Varela APRN Primary Care Provider [phone] Encounter Details Date Type Department Care Team (Late st Contact Info) Description 02/10/2019 2:00 PM EST Office [place] [address] Cl Atkins PA [facility] [place] [place] [address] Chronic intractable headache, unspecified headache type; S/P RUBBISH COLLECTOR shunt Social History Tobacco Use Types Packs/Day [...] Sign Reading Time Taken Comments Blood Pressure 141/90 02/10/2019 1:55 PM EST Pulse 85 02/10/2019 1:55 PM EST Temperature - - Respiratory Rate - - Oxygen Saturation - - Inhaled Oxygen Concentration - - Weight - - Height - - Body Mass Index - - documented in this encounter Progress Notes * Cl Atkins PA - 02/10/2019 2:00 PM EST Name: Chapin Costa : 1970 PCP: Rosario Varela APRN REF: Rosario Varela Date of Service: 02/10/2019 Chief Complaint: Headache Chapin Costa is a 48 year old male with a history of shunted hydrocephalus for aqueductal stenosis. He presents with complaints of headache. He reports these are constant, occurring first thing upon waking, lasting all day, and goes to sleep with them. Nothing makes them feel better and nothing makes them feel worse in terms of positioning, activity, etc. He says it hurts his eyes to look up, but he can do it. He reports some nausea and tenderness at the valve site. He denies vomiting, fever, neck pain, somnolence, and focal neurologic deficits. On exam, he is wide awake and in no apparent distress. He demonstrates intact speech and language function. He has a dysconjugate gaze. EOM are full. Looking up causes pain. There is no facial asymmetry. There is no drift. He moves all extremities well. He has some tenderness to palpation over the valve site. There is no erythema, swelling, or underlying fluid collection. Cranial incisions are well healed. I reviewed his imaging that this shows essentially unchanged small slit like ventricles, an intact an well positioned shunt system, and an expected setting of 80 on his Codman Hakim programmable valve. I reviewed these findings with Mr. Costa. I explained that the current work up has not ruled in a shunt malfunction but it has not ruled it out either. I explained that further investigation of his shunt would be more invasive including shunt tap, nuclear medicine shunt patency evaluation, or open surgical exploration. Each of these procedures carry risk including damaging the valve or introducing an infection. I gave Mr. Costa the option of proceeding with a shunt tap which would evaluate the proximal portion of his valve, but not the distal portion, and the opening pressure, proceeding with a nuclear medicine shunt patency evaluation which would assess the patency of the entire shunt system, or avoid invasive testing altogether, proceed with medical management as outlined by the headache clinic, continue to monitor and in the meantime check for papilledema by ophthalmology as anindirect means of assessing for increased intracranial pressure. He opted for shunt tap and this procedure is dictated in a separate report. This demonstrated a patent proximal portion without increased pressure and return of clear colorless CSF. I explained that this shows the proximal portion is patent, but does not assess the valve or the distal portion. We can infer that his shunt is functional and headache likely not pressure- related since the pressure was low on shunt tap. I recommended monitoring of symptoms at this time and following with headache clinic recommendations. Of note he did not tolerate rasing his pressure setting in the past (from 80 to 100 resulted in increased headache and hospital admission) and I would not be enthusiastic about trying this again. If headache remains refractory we may want to consider further invasive testing. Cl Atkins PA-C, MS Physician Refrigerating Oiler [place] [address] documented in this encounter Procedure Notes * Cl Atkins PA - 02/10/2019 2:00 PM ESTProcedure(s): PRO BRAIN SHUNT TUBE/RESERV INJECTN Pre-Procedure Diagnose(s): Aqueductal stenosis; Obstructive hydrocephalus; S/P RUBBISH COLLECTOR shunt; Headache, chronic daily Post-Procedure Diagnose(s): Aqueductal stenosis; Obstructive hydrocephalus; S/P RUBBISH COLLECTOR shunt; Headache,chronic daily Puncture of shunt tubing or reservoir for aspiration or injection procedure Right occipital RUBBISH COLLECTOR shunt reservoir identified. Site prepped with chlorhexidine swabs x2. Under sterile technique scalp was punctured with a 25G butterfly needle. On first attempt, return of clear colorless CSF was observed. CSF did not appear to be under high pressure. With stop cock open to manometer and zeroed at the valve site, the fluid column ended about [address] butterfly needle tubing. Needle was then removed. Puncture site cleaned with betadine swab x3. No samples were collected. Patient tolerated the procedure well. documented in this encounter Plan of Treatment Not on file documented as of this encounter Visit Diagnoses Diagnosis Chronic intractable headache, unspecified headache type S/P RUBBISH COLLECTOR shunt Presence of cerebrospinal fluid drainage device documented in this encounter Care Teams Tester Operator Relationship Specialty Start Date End Date Rosario Varela APRN [address] [place] [address] PCP - General Family Medicine 02/03/18 09/19/20 documented as of this encounter
--- OUTSIDE RECORDS SUMMARY | 2024-02-29 15:50 | XMS_ITS | Encounter Summary ---
[facility] [place] [address] Care Team Providers Care Second Operator Name Role Phone Rosario Varela APRN Primary Care Provider [phone] Reason for Visit * Auth/Cert Specialty Diagnoses / Procedures Referred By Mansi t Referred To Contact Diagnoses Seizures refractory seizures Referral ID Status Reason Start Date Expiration Date Visits Re quested Visits Authorized [id number] 1 1 Encounter Details Date Type Department Care Team (Late st Contact Info) Description 03/23/2019 3:28 PM EST - 03/28/2019 2:23 PM [facility] Hospital Encounter [address] [place] [address] Farhan Wilder MD [facility] [place] [address] Seizures Discharge Disposition: Home Social History Tobacco Use [...] Sign Reading Time Taken Comments Blood Pressure 117/76 03/28/2019 11:21 AM EST Pulse 63 03/28/2019 11:21 AM EST Temperature 36.7 ??C (98.1 ??F) 03/28/2019 1 1:21 AM EST Respiratory Rate 18 03/28/2019 11:2 1 AM EST Oxygen Saturation 96% 03/28/2019 11: 21 AM EST Inhaled Oxygen Concentration - - Weight 77.5 kg (170 lb 12.8 oz) 020 3:40 PM EST with shoes Height 167.6 cm (5' 5.98) 03/23/2019 3 :40 PM EST Body Mass Index 27.58 03/23/2019 3:40 PM EST documented in this encounter Discharge Summaries * Susan Johnson, REINSURANCE CLERK - 03/28/2019 12:48 PM EST [facility] Epilepsy Monitoring Unit Discharge Summary Patient Name: Chapin Costa Patient Age: 48 y.o. Language: Urdu Race: White Ethnicity: Not nor Admit date: 03/23/2019 Discharge date and time: 03/28/19 Attending Physician: Farhan Wilder MD Discharge Physician: Farhan Wilder MD Follow-up Recommendations for Providers: ?? 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 Topamax was restarted for headache and Gabapentin for pain ?? BIT Team recommendations: 1. Continue psychiatric medication as clinically appropriate 2. Plans to engage in outpatient therapy; resources in d/c summary 3. Referred to [facility] ?? Follow up appt, 04/06/2019 11:00 AM [facility] Inpatient Provider Contact Information: For questions regarding this document or issues related to this hospitalization on the Neurology Service, please contact the author(s) of this discharge summary through the [facility] Stores Clerk . Discharge Diagnoses (Hospital Problems) and Secondary Diagnoses (Chronic Problems): Primary Diagnosis: Psychogenic non-epileptic seizures Active Hospital Problems Diagnosis ??? Seizures Resolved Hospital Problems No resolved problems to display. Active Non-Hospital Problems Diagnosis ??? Neck pain ??? Headache ??? Persistent headaches ??? S/P TECHNICAL SUPPORT DIRECTOR shunt Past Medical History: Diagnosis Date ??? Depression ??? Hearing loss r ear ??? Hyperlipidemia ??? Hypertension ??? Memory disorder ??? Seizures ??? Syncope and collapse ??? Vision abnormalities related to hydrocephalus History of Presentation: Presenting Diagnosis/Chief Complaint: PNES vs. Epileptic events ?? History of Present Illness/Description of Symptoms: Chapin Costa is a 48 y.o. 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 ?? Chapin reports that he has a history of grand mal seizures when he was a child and has been on carbamazepine basically my entire life. However, he started to have breakthrough seizures in 2018 for which he presented to the ED at [facility]. Patient does not have any auras. The episodes typically last 10-20 minutes and he sun snot use any abortive medications. He reportsthat he does not remember what is going on during these episodes. His eyes remain open. Patient's is present during interview and reports that he does speak but his speech in nonsensical and broken during the episodes. ?? Patient denies a history of physical, sexual, or emotional abuse as a child or currently. He reports that his current antidepressant regimen is adequately maintaining his mood He is due for a testosterone injection on Thursday of this week. ?? Onset & Progression: 12/2018: Seen at ER at??[facility] for generalized convulsions thoughtto be related to shunt malfunction, workup unremarkable Continues to have seizures ?? Reports childhood grand mal and absence seizures and has been on carbamazepine since he was a childfor these. Did not have any seizures up until last year. ?? Semiology: ?? Event type #??1 Semiology: absence: blank stare +/- body shake/tremor but waking in between (on/off??but patient reports he does not recall them and is unaware; eyes sometimes open sometimes closed;??no convulsion, bite tongue, bowel/bladder control, no dizziness, blurry vision, palpitation, chest pain around the time) Aura:??no Postictal:??feels tired Onset:??since he was a kid but then none for at least 10 years??and they are back from few months ago Duration: varies 5-20 min Frequency: ??Usually rarely but lately every few weeks Triggers: unknown Diurnal variation: only day ?? Event type #??2 Semiology: partials: grabbed his 's leg hard (sat next to him) then started twitching/tremor in hands and less responsive Aura:??none Postictal:??tired Onset:??Only 2 events, Within few days over the past 2 weeks?? Duration: ??About 30 min Triggers: ??unknown Diurnal variation: day ?? Frequency: Seizures are happening approximately 2-3 times per week at this point; unable to clarifyfrequency of each semiology Triggers: stress History of: []? Status Epilepticus [x]? Tongue biting (woke up in the morning with sore tongue) []? Incontinence []? Post-ictal psychosis Risk factors for epilepsy: []? Head trauma (Note if any LOC/How long?) []? Meningoencephalitis []? complications []? Complex febrile seizures []? Family history of epilepsy Risk factors for nonepileptic seizures: ?[]???Greater than 3 seizure types ?[]???Pre-ictal headache ?[]???Ictal eye closure ?[]???Ictal crying?[x]???Multiple AEDs ?[x]???Seizures greater than 5 minutes ?[x]???Prior psych treatment - Depression ?[]???History of sz in close friend / relative ?[]???History of suicide attempt ?[]???Greater than 12 drinks per week ?[]???Fibromyalgia ?[]???Malpractice lawsuit ?[]???Sexual or physical abuse Current AEDS: TPM 25mg bid (for headaches), GBP 100mg am/200mg hs (started for pain), CMZ 600mg am/400mg pm (patient has been on CMZ pretty much my whole life due to absence seizures as a child) ? Recent Levels: Pending Past AEDs: Only TPM, CBZ, GBP ?? Psychiatric history: Unspecified depression Physical Exam On Admission: General: nondiaphoretic, no acute distress. Head/Neck:?? normocephalic/atraumatic.?? Oropharynx clear.?? CV: regular rate/rhythm, no murmurs/rubs/gallops.?? No carotid bruits ascultated. Pulm: clear to auscultation bilaterally. Extremities:?? no edema, no joint abnormalities. Neuro: Mental Status: alert and oriented to person, place and date. HEENT/CN: PERRL, EOMI, visual tony intact.?? Facial sensation intact, muscles of mastication normal. Symmetric smile, eyelids closed equally Hearing equal bilaterally Symmetric palate, midline tongue, no dysarthria. Normal shoulder shrug, normal head rotation strength Motor: Normal tone and bulk. ?? Strength 5/5 in upper and lower extremities.?? No pronator drift. No tremor or abnormal movements Reflex:? R: TJ? 2+,? BJ?? 2+,?? BRJ? 2+,?? Pat?? 2+,? AJ?? 2+,?? toes downgoing L: TJ? 2+,? BJ?? 2+,?? BRJ? 2+,?? Pat?? 2+,? AJ?? 2+,?? toes downgoing ? Sensation: intact to touch, temp, vibration, and proprioception throughout. Coordination: Normal [id number], rapid alternating movements, finger taps. Romberg not present, mild fine tremor with outstretched hands Gait:?? Normal gait with walking, mild difficulty with heel-toe Prior Data: MRI: 03/2018: IMPRESSION 1. No acute disease. 2. Right frontal ventriculoperitoneal catheter shunt remains in place with a slitlike appearance throughout the majority of the lateral ventricles and the third ventricle. ??Please correlate clinically for any evidence of over shunting although there is no slumping of the brainstem. 3. No CSF flow through the cerebral aqueduct or about the dorsal aspect of the craniocervical junction consistent with severe aqueductal stenosis Hospital Course: Chapin Costa is a 48 y.o. y/o male with PMHx of congenital aqueduct stenosis/hydrocephalus and VPS with multiple revisions, chronic daily headaches, hypothyroidism, and depression who presentsfor video EEG monitoring for further evaluation and??differential diagnosis/characterization of events, suspicious epilepsy vs non-epileptic seizures. Upon arrival to the EMU scalp electrodes were placed and video EEG monitoring was initiated. In order to precipitate seizure activity his home tegretol was held upon admission, that night during IV placement the patient had an event to generalized tremulousness that he identified as his typical seizure event, without abnormal EEG correlate. On HD2 his low dose gabapentin and low dose Tegretol were discontinued as well, following which he had similar event again without abnormal EEG correlate (see full report below). Diagnosis of psychogenic non-epileptic seizures was discussed at length with the patient was was accepting of this diagnosis, all questions were answered and additional educational materials were provided. For this reason his Tegretol was not restarted. His Topamax was restarted for his headache and Gabapentin for pain upon discharge. Given his report of recent increased psychosocial stressors and lack of adequate coping mechanisms the following day the BIT team was consulted for supportive therapy and to help establish outpatientpsychiatric care. Patient found this beneficial and plans to engage in outpatient therapy followingdischarge. He was discharged in the afternoon of 03/28/2019 in stable condition. Operations & Procedures: None Consultations: None Diagnostic Tests & Neuroimaging:: Date Study Results 03/23/2019 ECG EKG 12 Lead Collection Time: 03/23/19 4:17 PM Result Value Ref Range Ventricular rate 78 BPM Atrial Rate 78 BPM P-R Interval 120 ms QRS Duration 80 ms Q-T Interval 394 ms QTC Calculated (Bezet) 449 ms Calculated P [place] 39 degrees Calculated R [place] 16 degrees Calculated T [place] 26 degrees INTERPRETATION Normal sinus rhythm Normal ECG 03/23/2019 - 03/28/19 video EEG During the awake state with the eyes closed the background consisted of a moderate amplitude, 9 Hz posterior reactive rhythm that attenuated appropriately with eye opening. Beta activity was distributed diffusely with an anterior predominance. There was a normal anterior-posterior voltage gradient. With eye opening the background activity changed to a low voltage mixture of alpha, beta, and occasional theta range frequencies. ?? There was higher amplitude and frequency waves over the right temporal region consistent with breach rhythm. ?? Sleep Stage II/III sleep was obtained and consisted of symmetrical sleep spindles, vertex sharp waves, and diffuse delta slowing. ?? Abnormal Interictal Activity There were suspicious right posterior temporal sharp waves that were not clearly epileptiform. ?? Clinical Events Event #1, 03/23/2019 19:31 Clinical Symptoms: left hand and right foot tremulous movements, which waxed and waned with retained consciousness EEG Changes: There were no significant or abnormal EEG changes before, during, or after the event. ?? Event #2, 03/25/2019 11:42 Clinical Symptoms: I feel shaky all over. EEG Changes: There were no significant or abnormal EEG changes before, during, or after the event. ?? Event #3, 03/25/2019 11:51 Clinical Symptoms: Upper body jerking, left arm and left foot tremor, not consistently communicating with staff EEG Changes: There were no significant or abnormal EEG changes before, during, or after the event. ?? Event #4: 03/26/2019 14:02 Clinical Symptoms: Did not respond to RN after sitting down in chair EEG Changes: There were no significant or abnormal EEG changes before, during, or after the event ?? Provocative Maneuvers Hyperventilation was not performed. Photic stimulation was not performed. ?? INTERPRETATION This is an abnormal awake and asleep EEG due to ?? Four events listed above that did not have an abnormal EEG correlate ?? Right temporal breach rhythm CLINICAL CORRELATION EEG showing right temporal breach rhythm consistent with history of TECHNICAL SUPPORT DIRECTOR shunt and craniotomy, with sharply contoured waves that were not clearly epileptiform. Three typical events captured did not show an abnormal EEG correlate. No clear epileptiform discharges or electrographic seizures. ?? Labs: Recent Results (from the past 168 hour(s)) EKG 12 Lead Collection Time: 03/23/19 4:17 PM Result Value Ref Range Ventricular rate 78 BPM Atrial Rate 78 BPM P-R Interval 120 ms QRS Duration 80 ms Q-T Interval 394 ms QTC Calculated (Bezet) 449 ms Calculated P [place] 39 degrees Calculated R [place] 16 degrees Calculated T [place] 26 degrees INTERPRETATION Normal sinus rhythm Normal ECG When compared with ECG of 15-JAN-2017 01:58, No significant change was found Confirmed by MD Oneill Daniel ([id number]) on 03/25/2019 1:43:42 AM Comprehensive metabolic panel (non-fasting) Collection Time: 03/23/19 7:30 PM Result Value Ref Range Glucose Lvl 100 65 - 199 mg/dL BUN 16 10 - 20 mg/dL Creatinine 0.98 0.80 - 1.50 mg/dL Sodium 138 135 - 145 mmol/L Potassium 4.0 3.5 - 5.0 mmol/L Chloride 106 98 - 107 mmol/L CO2 20 (L) 22 - 31 mmol/L Anion Gap 12 5 - 15 mmol/L Calcium 9.0 8.5 - 10.5 mg/dL Total Protein 7.9 6.1 - 8.0 gm/dL Albumin 4.5 3.2 - 5.2 gm/dL AST 54 (H) 0 - 39 unit/L ALT 73 (H) 0 - 55 unit/L Alk Phos 119 40 - 130 unit/L Total Bilirubin 0.4 0.2 - 1.3 mg/dL eGFR 92 >=60 mL/min/1.73 m?? eGFR 107 >=60 mL/min/1.73 m?? Carbamazepine level, total Collection Time: 03/23/19 7:30 PM Result Value Ref Range Carbamazepine Lvl 5.6 (L) 8.0 - 12.0 mg/L Topiramate level Collection Time: 03/23/19 7:30 PM Result Value Ref Range Topiramate Lvl <1.0 mcg/mL Gabapentin level Collection Time: 03/23/19 7:30 PM Result Value Ref Range Gabapentin Lvl <0.5 (L) 2.0 - 20.0 mcg/mL Hemogram Collection Time: 03/23/19 7:30 PM Result Value Ref Range WBC 9.2 4.0 - 9.5 x10(3)/mcL RBC 4.92 4.58 - 5.54 x10(6)/mcL Hemoglobin 15.4 13.7 - 16.5 gm/dL Hematocrit 46.4 40.5 - 48.5 % MCV 94.3 (H) 82.9 - 93.1 fL MCH 31.3 27.5 - 32.1 pg MCHC 33.2 32.0 - 35.7 gm/dL Platelets 335 145 - 357 x10(3)/mcL RDWSD 44.6 36.0 - 45.0 fL RDWCV 13.0 11.4 - 13.8 % MPV 8.8 7.6 - 12.9 fL nRBC % Auto 0.0 % nRBC Abs Auto 0.000 0.000 - 0.000 x10(3)/mcL Differential, Automated Collection Time: 03/23/19 7:30 PM Result Value Ref Range Neutrophils % 27.1 % Neutr Abs (ANC) 2.48 1.70 - 6.10 x10(3)/mcL Lymphocytes % 63.8 % Lymphocytes Abs 5.8 (H) 0.9 - 3.2 x10(3)/mcL Monocytes % 6.0 % Monocyte Abs 0.6 0.3 - 0.9 x10(3)/mcL Eosinophils % 1.7 % Eosinophils Abs 0.2 0.0 - 0.4 x10(3)/mcL Basophils % 1.2 % Basophils Abs 0.1 0.0 - 0.1 x10(3)/mcL Immature Gran % 0.20 % Ute Gran Abs 0.02 0.00 - 0.04 x10(3)/mcL Bilirubin, Direct Collection Time: 03/23/19 7:30 PM Result Value Ref Range Bili, Direct 0.1 0.0 - 0.3 mg/dL Scan, Peripheral Blood Collection Time: 03/23/19 7:30 PM Result Value Ref Range Plat Estimate Normal RBC Morphology Normal Atypical Lymph Moderate Vitamin B12 Collection Time: 03/23/19 7:30 PM Result Value Ref Range Vitamin B-12 322 232 - 1,245 pg/mL TSH [place]ell Collection Time: 03/23/19 7:30 PM Result Value Ref Range TSH 2.51 0.27 - 4.20 mcIU/mL Comprehensive metabolic panel (non-fasting) Collection Time: 03/24/19 2:01 PM Result Value Ref Range Glucose Lvl 97 65 - 199 mg/dL BUN 16 10 - 20 mg/dL Creatinine 1.15 0.80 - 1.50 mg/dL Sodium 140 135 - 145 mmol/L Potassium 4.5 3.5 - 5.0 mmol/L Chloride 106 98 - 107 mmol/L CO2 23 22 - 31 mmol/L Anion Gap 11 5 - 15 mmol/L Calcium 9.1 8.5 - 10.5 mg/dL Total Protein 7.7 6.1 - 8.0 gm/dL Albumin 4.2 3.2 - 5.2 gm/dL AST 53 (H) 0 - 39 unit/L ALT 73 (H) 0 - 55 unit/L Alk Phos 120 40 - 130 unit/L Total Bilirubin 0.4 0.2 - 1.3 mg/dL eGFR 76 >=60 mL/min/1.73 m?? eGFR 88 >=60 mL/min/1.73 m?? Pending Studies and Lab Data: No current labs Vital Signs at Discharge: BP: 117/76, Heart Rate: 63, Temp: 36.7 ??C (98.1 ??F), Resp: 18, BMI (Calculated): 27.58 Height: 167.6 cm (5' 5.98) (03/23/19 1540) Weight: 77.5 kg (170 lb 12.8 oz)(with shoes) (03/23/19 1540) Functional and Cognitive Status: Baseline function and mentation Physical Exam at Discharge: Unchanged from Admission Discharge Conditions/Prognosis: Good Discharge to: Home Updated Allergies/ADRs: Allergies Allergen Reactions ??? Penicillins ??? Tegaderm [Transparent Dressings] Itching ??? Vancomycin Analogues ??? Vancomycin Hcl Immunizations Given this Hospitalization: There is no immunization history on file for this patient. Discharge Medications: Your Medications Continued medications, unchanged Dose Details amitriptyline 25 mg Tab Commonly known as: Elavil Take 25 mg by mouth nightly. 25 mg Refills: 0 candesartan 8 mg Tab Commonly known as: ATACAND Take 1 tablet by mouth daily. 8 mg Quantity: 90 tablet Refills: 3 gabapentin 100 mg Cap Commonly known as: Neurontin 100 mg AM/ 200 mg HS Quantity: 90 capsule Refills: 3 gemfibroziL 600 mg Tab Commonly known as: Lopid Take 600 mg by mouth 2 times daily (before meals). 600 mg Refills: 0 levothyroxine 25 mcg Tab Commonly known as: Synthroid Take 25 mcg by mouth daily. 25 mcg Refills: 0 metoprolol succinate XL 25 mg Tablet sr Commonly known as: Toprol-XL Take 25 mg by mouth daily. 25 mg Refills: 0 rizatriptan 10 mg Tab Commonly known as: MAXALT Take 1 tablet by mouth as needed for Migraine. 10 mg Quantity: 10 tablet Refills: 0 sertraline 100 mg Tab Commonly known as: ZOLOFT Take 100 mg by mouth daily. 100 mg Refills: 0 testosterone cypionate 200 mg/mL Oil Commonly known as: DepoTESTOSTERONE CYPIONATE Inject into the muscle every 14 days. Refills: 0 topiramate 25 mg Tab Commonly known as: Topamax Take 1 tablet by mouth 2 times daily. 25 mg Quantity: 60 tablet Refills: 5 STOPPED Medications carBAMazepine 200 mg Tab Commonly known as: TEGretol Smoking Status at Discharge: Social History Tobacco Use Smoking Status Never Smoker Smokeless Tobacco Never Used Instructions Given to Patient at Discharge: Patient Instructions After Visit Summary: (Please ensure patient gets a copy of their full discharge summary as well.) We hope that you have had a positive experience at the [facility] Epilepsy Monitoring Unit. Here is some general information about the details of your stay, and what comes next. YOUR DIAGNOSIS: Psychogenic non-epileptic seizures MEDICATIONS CHANGES: Stop Tegretol FOLLOWUP APPOINTMENT: You will have an outpatient followup appointment in the neurology clinic at [facility]. If not already listed in this document, we will contact you to schedule this appointment. -- If 1 week passes by after you are discharged and you still do not have an appointment, please call [phone]. Future Appointments and Orders Future Appointments and Orders Future Appointments Provider Department Dept Phone 04/06/2019 11:00 AM Irvin New MD Neurology at [facility] Arrive at: [facility] [address] [phone] Specific instructions related to your condition: ?? Call your doctor or seek medical attention if you experience an event lasting more than 5 minutes. ?? Advise your family and friends that if you have an episode, they should position you on a flat carpeted surface if possible, in a clear area, to avoid injury. They should turn you on your side if you start to vomit. Keep track of the date and time the event started, how long it lasted, whether or not you lost consciousness, a description of your body movements, what provoked it (if known), andany injuries you suffered. ?? Avoid hyperventilating (fast, shallow breathing) because this can make your face and hands tingle. Focus on slow, deep breaths when you feel that you are hyperventilating. ?? Return to the Emergency Department if: ?? You think about hurting or killing yourself or someone else ?? You feel like fainting or are too dizzy to stand up ?? You are having breathing problems ?? You are injured after one of your events. ?? Activity restrictions: To minimize your risk of injury, we recommend avoiding hazardous activities including those in which you might operate heavy machinery, cars, or other machines that could pose a risk yourself or others around you. ?? Driving restrictions: If you feel unsafe to drive, or that you cannot control yourself during one of your episodes, please refrain from driving. ?? Diet: As before. For questions regarding this document or issues relating to this hospitalization on the Neurology Service, please contact your inpatient physician through the [facility] Stores Clerk . Issues after hours and on weekends will be handled by the Neurology staff on-call. General Instructions PSYCHIATRY RESOURCES [facility] [address], [place] [address] x6 Megan Sandoval, CULVERT INSTALLER [address], [address] [place], [place] [address] [phone] 24 Hour Suicide Prevention Hotlines: [facility] Human Services: 836.303.9958 [place] Suicide Prevention Hotline: Crisis Text Line: Text CONNECT to 477491 In case of emergency, please go to your closest Emergency Department or call 911. Alternatively, ifin acute crisis or are feeling unsafe, you can call the [facility] crisis number at [phone]. Future Appointments and Orders Future Appointments and Orders Future Appointments Provider Department Dept Phone 04/06/2019 11:00 AM Irvin New MD Neurology at [facility] Arrive at: [facility] [employer] [address] [place] [address] Primary Care Provider: Rosario Varela APRN [address] [address] Discharge References/Attachments None documented in this encounter Discharge Instructions * Discharge Instructions* Seble Sarmiento MSW - 03/24/2019 6:30 PM EST PSYCHIATRY RESOURCES [facility] [address], [place] [address] x6 Megan Sandoval, CULVERT INSTALLER [address], [address] [place], [place] [address] [place], [place] [phone] 24 Hour Suicide Prevention Hotlines: [facility] Human Services: 990.421.5425 [place] Suicide Prevention Hotline: Crisis Text Line: Text CONNECT to 659809 In case of emergency, please go to your closest Emergency Department or call 911. Alternatively, ifin acute crisis or are feeling unsafe, you can call the [facility] crisis number at [phone]. * Patient Instructions* Susan Johnson APRN - 03/25/2019 6:51 PM EST After Visit Summary: (Please ensure patient gets a copy of their full discharge summary as well.) We hope that you have had a positive experience at the [facility] Epilepsy Monitoring Unit. Here is some general information about the details of your stay, and what comes next. YOUR DIAGNOSIS: Psychogenic non-epileptic seizures MEDICATIONS CHANGES: Stop Tegretol FOLLOWUP APPOINTMENT: You will have an outpatient followup appointment in the neurology clinic at [facility]. If not already listed in this document, we will contact you to schedule this appointment. -- If 1 week passes by after you are discharged and you still do not have an appointment, please call [phone]. Future Appointments and Orders Future Appointments and Orders Future Appointments Provider Department Dept Phone 04/06/2019 11:00 AM Irvin New MD Neurology at [facility] Arrive at: [employer] [address] [place] [address] Specific instructions related to your condition: ?? Call your doctor or seek medical attention if you experience an event lasting more than 5 minutes. ?? Advise your family and friends that if you have an episode, they should position you on a flat carpeted surface if possible, in a clear area, to avoid injury. They should turn you on your side if you start to vomit. Keep track of the date and time the event started, how long it lasted, whether or not you lost consciousness, a description of your body movements, what provoked it (if known), andany injuries you suffered. ?? Avoid hyperventilating (fast, shallow breathing) because this can make your face and hands tingle. Focus on slow, deep breaths when you feel that you are hyperventilating. ?? Return to the Emergency Department if: ?? You think about hurting or killing yourself or someone else ?? You feel like fainting or are too dizzy to stand up ?? You are having breathing problems ?? You are injured after one of your events. ?? Activity restrictions: To minimize your risk of injury, we recommend avoiding hazardous activities including those in which you might operate heavy machinery, cars, or other machines that could pose a risk yourself or others around you. ?? Driving restrictions: If you feel unsafe to drive, or that you cannot control yourself during one of your episodes, please refrain from driving. ?? Diet: As before. For questions regarding this document or issues relating to this hospitalization on the Neurology Service, please contact your inpatient physician through the [facility] Stores Clerk . Issues after hours and on weekends will be handled by the Neurology staff on-call. documented in this encounter Medications at Time [...] as of this encounter Progress Notes * Cici Paniagua RN - 03/28/2019 2:19 PM EST Chapin Costa discharged to Home by private car with family. All belongings sent with patient. ADAM removed, skin free from pressure ulcers. Discharge instructions, medications, and follow-up appointments reviewed, education provided on when to seek medical attention, all questions answered. Austin wilson instructed to call with concerns. * Susan Johnson APRN - 03/28/2019 11:31 AM EST [facility] Department of Neurology Comprehensive Epilepsy Center Progress Note Chapinmark Costa 48 y.o. [id number] 03/28/19 ID-Events of unclear etiology, seizures vs PNES Interval Events/Subjective - No events overnight, neurologically stable. MEDS ??? naproxen (Naprosyn) tablet 500 mg ??? sodium chloride 0.9 % (flush) flush 5 mL ??? sodium chloride 0.9 % (flush) flush 5-20 mL ??? lidocaine (XYLOCAINE) 10 mg/mL (1 %) injection 3 mg ??? enoxaparin (LOVENOX) injection 40 mg ??? amitriptyline (Elavil) tablet 25 mg ??? gemfibrozil (Lopid) tablet 600 mg ??? levothyroxine (Synthroid) tablet 25 mcg ??? metoprolol succinate XL (Toprol-XL) tablet 25 mg ??? sertraline (Zoloft) tablet 100 mg Physical Exam: BP 123/71 (BP Location (NBP): Right arm, Patient Position: Lying) Temp 36.5 ??C (97.7 ??F) (Oral) Resp 12 Ht 167.6 cm (5' 5.98) Wt 77.5 kg (170 lb 12.8 oz) Comment: with shoes SpO2 96% BMI 27.58 kg/m?? General: Nondiaphoretic, no acute distress. Head/Neck: Normocephalic. Shunt site well-healed CV: Normal rate with regular rhythm Extremities: No edema, no joint abnormalities. Neuro: Mental Status: Alert and oriented to person, follows directions. HEENT/CN: PERRL, dysconjugate gaze (intermittent left or right exophoria, baseline) Face symmetric, eyelids closed equally Hearing grossly intact No dysarthria. Normal shoulder shrug, normal head rotation strength Motor: Normal tone and bulk. No tremor or abnormal movements. No focal weakness Sensation: Grossly intact to light touch Coordination: Not assessed Labs/Imaging None new Assessment/Plan This is a??48 y.o.??y/o male??with PMHx??of??congenital aqueduct stenosis/hydrocephalus and VPS with multiple revisions,??chronic daily headaches, hypothyroidism,??and depression??who presents for video EEG monitoring for further evaluation and??differnetial diagnosis/characterization of events,??suspicious epilepsy vs non-epileptic seizures.??In order to precipitate seizure activity antiepileptic medication will be withheld. This places the patient at a high risk for seizures and status epilepticus, warranting inpatient admission for close monitoring and safety precautions. His carbamazepinewas discontinued upon admission. He had two events on 03/25, not his usual ones at home, overnight, neither of which appears to be epileptic. The arm movements were inconsistent with ET, Parkinsonism-looked behavioral. He had one typical events on 03/26, no associated EEG abnormality, likely non-epileptic event. Plan to discharge today. Plan #?Admit to neurology ?? 24 hour Video EEG monitoring ? Seizure precautions ? If no seizure by HD2: Photic, HV, Sleep Deprive ? Basic labs on admission, including AED levels ?? Prophylaxis:?? ? Do not use tylenol for pain ? SCDs, Lovenox, ambulate frequently to prevent DVTs. ? Hydroxyzine 25mg q4hrs prn anxiety ? BMX for tongue bite ?? #?AED plan: ?-AEDs: Continue Topiramate??25mg bid, gabapentin??100mg am/200mg hs ?Discontinue Carbamazepine ? # ?Unspecified depression ?- Continue home sertraline and amitriptyline ?? #?Rescue plan for acute repetitive seizures ?2mg IV Ativan after 1 GTC or 3 focal with impaired awareness (complex partial) seizures in 24 hours or any seizure lasting longer than 5 minutes. ?? # ?Nursing seizure exam plan: ?Standard Exam: Assess A&O status, give code word for later recall, follow simple/complex commands, assess language, strength/motor function. ?? # ??Dispo Planning: ??Discharge today ?? CODE STATUS: Full?? Susan Johnson APRN Department of Neurology 03/28/2019 7:38 AM Associated attestation - Farhan Wilder MD - 03/28/2019 4:07 PM EST Neurology (Staff) Addendum I saw and evaluated the patient. I have reviewed the resident's history, physical examination findings, assessment and plan during the visit and I agree with the details as written, unless otherwise specified as below. 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 Patient will be discharged today off CMZ. Follow up with neurology outpatient. Farhan Wilder MD * Rishi Hagan Jr., MD - 03/27/2019 12:35 PM EST [facility] Department of Neurology [facility] Ep[facility]psy [facility] Progress Note Chapin Costa 48 y.o. [id number] 03/27/19 ID-Events of unclear etiology, seizures vs ??? Interval Events/Subjective ?? One of his typical events yesterday-sitting in chair and became unresponsive, no abnormal EEG changes. He has no recollection. ROS ROS positive per HPI. ROS negative for: -Fevers, chills, unexplained weight changes -Chest pain -SOB, cough -Nausea, vomiting, diarrhea, constipation -Dysuria, hematuria -Joint pain -Skin rashes -Easy bleeding or bruising -Headaches, numbness MEDS ??? naproxen (Naprosyn) tablet 500 mg ??? sodium chloride 0.9 % (flush) flush 5 mL ??? sodium chloride 0.9 % (flush) flush 5-20 mL ??? lidocaine (XYLOCAINE) 10 mg/mL (1 %) injection 3 mg ??? enoxaparin (LOVENOX) injection 40 mg ??? amitriptyline (Elavil) tablet 25 mg ??? gemfibrozil (Lopid) tablet 600 mg ??? levothyroxine (Synthroid) tablet 25 mcg ??? metoprolol succinate XL (Toprol-XL) tablet 25 mg ??? sertraline (Zoloft) tablet 100 mg Physical Exam: BP 114/78 (Patient Position: Lying) Temp 36.9 ??C (98.4 ??F) (Oral) Resp 16 Ht 167.6 cm (5' 5.98) Wt 77.5 kg (170 lb 12.8 oz) Comment: with shoes SpO2 96% BMI 27.58 kg/m?? General: Nondiaphoretic, no acute distress. Head/Neck: Normocephalic. Shunt site well-healed CV: Normal rate with regular rhythm Extremities: No edema, no joint abnormalities. Neuro: Mental Status: Alert and oriented to person, follows directions. HEENT/CN: PERRL, dysconjugate gaze (intermittent left or right exophoria, baseline) Face symmetric, eyelids closed equally Hearing grossly intact No dysarthria. Normal shoulder shrug, normal head rotation strength Motor: Normal tone and bulk. No tremor or abnormal movements. No focal weakness Sensation: Grossly intact to light touch Coordination: Not assessed Labs/Imaging None new Assessment/Plan This is a??48 y.o.??y/o male??with PMHx??of??congenital aqueduct stenosis/hydrocephalus and VPS with multiple revisions,??chronic daily headaches, hypothyroidism,??and depression??who presents for video EEG monitoring for further evaluation and??differnetial diagnosis/characterization of events,??suspicious epilepsy vs non-epileptic seizures.??In order to precipitate seizure activity antiepileptic medication will be withheld. This places the patient at a high risk for seizures and status epilepticus, warranting inpatient admission for close monitoring and safety precautions. His carbamazepinewas discontinued upon admission. ?? He had two events on 03/25, not his usual ones at home, overnight, neither of which appears to be epileptic. The arm movements were inconsistent with ET, Parkinsonism-looked behavioral. He had one typical events yesterday, no associated EEG abnormality, likely non- epileptic event. Will continue to monitor-EEG shows some abnormalities at baseline, likely due to shunt (breach, some sharp waves), but no electrographic seizures. Plan -Continue vEEG -Standard seizure precautions, seizure exam (assess A&O status, give code word for later recall, follow simple/complex commands, assess language, strength/motor function) -Hold Topiramate??25mg bid, gabapentin??100mg am/200mg pm, carbamazepine -2mg IV Ativan after 1 GTC or 3 focal with impaired awareness (complex partial) seizures in 24 hours or any seizure lasting longer than 5 minutes. -Continue home sertraline and amitriptyline; could consider increasing dose of sertraline -Prophy -Do not use tylenol for pain -SCDs, Lovenox, ambulate frequently to prevent DVTs -Hydroxyzine 25mg q4hrs prn anxiety -BMX for tongue bite ?? FULL CODE Rishi Hagan MD, PhD Department of Neurology Personal Pager #[phone] 03/27/2019 12:35 PM * Rishi Hagan Jr., MD - 03/26/2019 1:19 PM EST [facility] Department of Neurology [facility] Epilepsy [facility] Progress Note Chapin Costa 48 y.o. [id number] 03/26/19 ID-Events of unclear etiology, seizures vs ??? Interval Events/Subjective ?? Two events overnight, not his usual things, no abnormal EEG change with either: ?? Feeling of vibration ?? Arrhythmic/irregular movement of LUE ?? This am he describes a lot of life-stresses, headaches ROS ROS positive per HPI. ROS negative for: -Fevers, chills, unexplained weight changes -Chest pain -SOB, cough -Nausea, vomiting, diarrhea, constipation -Dysuria, hematuria -Joint pain -Skin rashes -Easy bleeding or bruising -Headaches, numbness MEDS ??? naproxen (Naprosyn) tablet 500 mg ??? sodium chloride 0.9 % (flush) flush 5 mL ??? sodium chloride 0.9 % (flush) flush 5-20 mL ??? lidocaine (XYLOCAINE) 10 mg/mL (1 %) injection 3 mg ??? enoxaparin (LOVENOX) injection 40 mg ??? amitriptyline (Elavil) tablet 25 mg ??? gemfibrozil (Lopid) tablet 600 mg ??? levothyroxine (Synthroid) tablet 25 mcg ??? metoprolol succinate XL (Toprol-XL) tablet 25 mg ??? sertraline (Zoloft) tablet 100 mg Physical Exam: BP 132/86 (BP Location (NBP): Right arm, Patient Position: Sitting) Temp 36 ??C (96.8 ??F) (Axillary) Resp 16 Ht 167.6 cm (5' 5.98) Wt 77.5 kg (170 lb 12.8 oz) Comment: with shoes SpO2 96% BMI 27.58 kg/m?? General: Nondiaphoretic, no acute distress. Head/Neck: Normocephalic. Shunt site well-healed CV: Normal rate with regular rhythm Extremities: No edema, no joint abnormalities. Neuro: Mental Status: Alert and oriented to person, follows directions. HEENT/CN: PERRL, dysconjugate gaze (intermittent left exophoria, baseline) Face symmetric, eyelids closed equally Hearing grossly intact No dysarthria. Normal shoulder shrug, normal head rotation strength Motor: Normal tone and bulk. No tremor or abnormal movements. No focal weakness Sensation: Grossly intact to light touch Coordination: Not assessed Labs/Imaging None new Assessment/Plan This is a??48 y.o.??y/o male??with PMHx??of??congenital aqueduct stenosis/hydrocephalus and VPS with multiple revisions,??chronic daily headaches, hypothyroidism,??and depression??who presents for video EEG monitoring for further evaluation and??differnetial diagnosis/characterization of events,??suspicious epilepsy vs non-epileptic seizures.??In order to precipitate seizure activity antiepileptic medication will be withheld. This places the patient at a high risk for seizures and status epilepticus, warranting inpatient admission for close monitoring and safety precautions. His carbamazepinewas discontinued upon admission. ?? He had two events, not his usual ones at home, overnight, neither of which appears to be epileptic.The arm movements were inconsistent with ET, Parkinsonism-looked behavioral. He reports a lot of stress at home and we discussed at some length how stress can manifest as seizure-like symptoms. Agreed to continue to monitor. He asked to get out of bed and walk some-I think this is fine as long as he stays on the unit and is accompanied by nursing. Plan -Continue vEEG -Standard seizure precautions, seizure exam (assess A&O status, give code word for later recall, follow simple/complex commands, assess language, strength/motor function) -Hold Topiramate??25mg bid, gabapentin??100mg am/200mg pm, carbamazepine -2mg IV Ativan after 1 GTC or 3 focal with impaired awareness (complex partial) seizures in 24 hours or any seizure lasting longer than 5 minutes. -Continue home sertraline and amitriptyline; could consider increasing dose of sertraline -Prophy -Do not use tylenol for pain -SCDs, Lovenox, ambulate frequently to prevent DVTs -Hydroxyzine 25mg q4hrs prn anxiety -BMX for tongue bite ?? FULL CODE Rishi Hagan MD, PhD Department of Neurology Personal Pager #[phone] 03/26/2019 1:19 PM * Royal Chavis, FAMILY DAY CARE WORKER - 03/25/2019 4:18 PM EST FAMILY DAY CARE WORKER had a brief conversation with Mr. Costa who reports that if his does indeed move out itwould be a big weight being removed from him. I am not close to her children , they just tolerate me; she and I have been fighting for months so her leaving will actually inmprove my life is how heexpressed his current attitude toward an impending divorce. He said at the conclusion of our visit - Her parents actually want me to stay in the trailer when she moves out - so I am going to be okay * Gina Duong RN - 03/25/2019 11:57 AM EST EVENT NOTE: TIME OF EVENT: 1140, 1150 TYPE: Push button AURA: none ESTIMATED DURATION: 2 min, 2 min SEIZURE PROVOCATION: walking in room, thinking of stressful situations EXAM: Similar to previous event. LEFT arm shaking, RIGHT toe numbness. LEFT foot tremors during second event for ~5 seconds. During second event, not responsive to questions for ~20 seconds. Otherwise alert, oriented (stated he feels disoriented, though). Naming objects/their use, Following commands. REMEMBER CODE WORD: Not Performed INTERVENTIONS: Notified MD, reassurance provided Side rails padded, vest in room/visable, O2 set up, Masimo on, suction set up, patient visable on camera, call shell within reach, push button on door side of room. * JUAN JOSÉ Carter MD - 03/25/2019 11:01 AM EST [facility] Comprehensive Epilepsy Center EPILEPSY MONITORING UNIT- PROGRESS NOTE Chapin Costa: 48 y.o.: [id number]: Referring Provider: Rosario Varela, REINSURANCE CLERK: 03/25/19 Presenting Diagnosis/Chief Complaint: Seizures History of Present Illness/Description of Symptoms: Chapin Costa is a 48 y.o. 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 ?? Interval History: - No events captured overnight - Patient did have an episode of chest tightness/pain that was located midline along the sternum and did not radiate. It dissipated on its own, but agreed to remain vigilant and let us know if thingschanged - Has some shakiness in his knees when moving around. - Spoke with BIT team and found this helpful MEDS ??? naproxen (Naprosyn) tablet 500 mg ??? sodium chloride 0.9 % (flush) flush 5 mL ??? sodium chloride 0.9 % (flush) flush 5-20 mL ??? lidocaine (XYLOCAINE) 10 mg/mL (1 %) injection 3 mg ??? enoxaparin (LOVENOX) injection 40 mg ??? amitriptyline (Elavil) tablet 25 mg ??? gemfibrozil (Lopid) tablet 600 mg ??? levothyroxine (Synthroid) tablet 25 mcg ??? metoprolol succinate XL (Toprol-XL) tablet 25 mg ??? sertraline (Zoloft) tablet 100 mg Physical Exam: Blood pressure 126/82, temperature 36.2 ??C (97.2 ??F), temperature source Oral, resp. rate 17, height 167.6 cm (5' 5.98), weight 77.5 kg (170 lb 12.8 oz), SpO2 97 %. General: nondiaphoretic, no acute distress. Head/Neck:?? normocephalic/atraumatic.?? Oropharynx clear.?? CV: regular rate/rhythm, no murmurs/rubs/gallops.?? No carotid bruits ascultated. Pulm: clear to auscultation bilaterally. Extremities:?? no edema, no joint abnormalities. Neuro: Mental Status: alert and oriented to person, place and date. HEENT/CN: PERRL, EOMI, visual tony intact.?? Facial sensation intact, muscles of mastication normal. Symmetric smile, eyelids closed equally Hearing equal bilaterally Symmetric palate, midline tongue, no dysarthria. Normal shoulder shrug, normal head rotation strength Motor: Normal tone and bulk. ?? Strength 5/5 in upper and lower extremities.?? No pronator drift. No tremor or abnormal movements Reflex:? R: TJ? 2+,? BJ?? 2+,?? BRJ? 2+,?? Pat?? 2+,? AJ?? 2+,?? toes downgoing L: TJ? 2+,? BJ?? 2+,?? BRJ? 2+,?? Pat?? 2+,? AJ?? 2+,?? toes downgoing ? Sensation: intact to touch, temp, vibration, and proprioception throughout. Coordination: Normal [id number], rapid alternating movements, finger taps. Romberg not present, mild fine tremor with outstretched hands Gait:?? Normal gait with walking, mild difficulty with heel-toe Pertinent Data: Recent Results (from the past 24 hour(s)) Comprehensive metabolic panel (non-fasting) Result Value Ref Range Glucose Lvl 97 65 - 199 mg/dL BUN 16 10 - 20 mg/dL Creatinine 1.15 0.80 - 1.50 mg/dL Sodium 140 135 - 145 mmol/L Potassium 4.5 3.5 - 5.0 mmol/L Chloride 106 98 - 107 mmol/L CO2 23 22 - 31 mmol/L Anion Gap 11 5 - 15 mmol/L Calcium 9.1 8.5 - 10.5 mg/dL Total Protein 7.7 6.1 - 8.0 gm/dL Albumin 4.2 3.2 - 5.2 gm/dL AST 53 (H) 0 - 39 unit/L ALT 73 (H) 0 - 55 unit/L Alk Phos 120 40 - 130 unit/L Total Bilirubin 0.4 0.2 - 1.3 mg/dL eGFR 76 >=60 mL/min/1.73 m?? eGFR 88 >=60 mL/min/1.73 m?? MRI brain (04/22/18) - EXAMINATION: MRI BRAIN WO CONTRAST ?? CLINICAL HISTORY: Worsening headaches. 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 ?? TECHNIQUE: MRI of the brain performed without intravenous contrast administration.Phase-contrast imaging was performed through the cerebral aqueduct in both the sagittal and axial planes. ?? COMPARISON: CT venogram of the head 01/16/2017 ?? FINDINGS: A right frontal ventricular shunt catheter remains in place with tip in the region of the frontal horn of the left lateral ventricle. The frontal horns remain slitlike and caliber as do the bodies of the lateral ventricles. The ventricular atria remain normal in caliber. The left temporal horn remains essentially collapsed with the right temporal horn normal in caliber. The third ventricle remains slitlike. ?? Old craniotomy gala holes with associated shunt tracts, one in the left frontal lobe and two in the right posterior frontal lobe. ?? The suprasellar cistern and prepontine cistern remain normal in caliber and there is no slumping of the brainstem. ?? Phase contrast images show no CSF flow through the cerebral aqueduct. There is flow along the ventral portion of the craniocervical junction into the prepontine cistern, with no discernible flow dorsal to the craniocervical junction. ?? No acute intracranial hemorrhage, mass, midline shift, acute infarction, or herniation. ? IMPRESSION 1. No acute disease. 2. Right frontal ventriculoperitoneal catheter shunt remains in place with a slitlike appearance throughout the majority of the lateral ventricles and the third ventricle. Please correlate clinically for any evidence of over shunting although there is no slumping of the brainstem. 3. No CSF flow through the cerebral aqueduct or about the dorsal aspect of the craniocervical junction consistent with severe aqueductal stenosis. Assessment: This is a 48 y.o. y/o male with PMHx of congenital aqueduct stenosis/hydrocephalus and VPS with multiple revisions, chronic daily headaches, hypothyroidism, and depression who presents for video EEG monitoring for further evaluation and??differnetial diagnosis/characterization of events, suspicious epilepsy vs non-epileptic seizures. In order to precipitate seizure activity antiepileptic medication will be withheld. This places the patient at a high risk for seizures and status epilepticus, warranting inpatient admission for close monitoring and safety precautions. His carbamazepine was discontinued upon admission. ?? 03/25/19 - No additional episodes captured overnight. Encouraged patient to continue trying to simulate the stressful situations that usually provoke seizures. We intend to stop his lamotrigine and gabapentin today. Spoke with BIT team who provided him with possible stress management techniques gokul for outpatient counseling. Planning for discharge on Thursday. Plan:? #?Admit to neurology ?? 24 hour Video EEG monitoring ? Seizure precautions ? If no seizure by HD2: Photic, HV, Sleep Deprive ? Basic labs on admission, including AED levels ?? Prophylaxis:?? ? Do not use tylenol for pain ? SCDs, Lovenox, ambulate frequently to prevent DVTs. ? Hydroxyzine 25mg q4hrs prn anxiety ? BMX for tongue bite ?? #? AED plan: -AEDs: Discontinue Topiramate 25mg bid, gabapentin 100mg am/200mg pm, carbamazepine ? # Unspecified depression - Continue home sertraline and amitriptyline; could consider increasing dose of sertraline ?? #? Rescue plan for acute repetitive seizures ?2mg IV Ativan after 1 GTC or 3 focal with impaired awareness (complex partial) seizures in 24 hours or any seizure lasting longer than 5 minutes. ?? # ?? Nursing seizure exam plan: ? Standard Exam: Assess A&O status, give code word for later recall, follow simple/complex commands, assess language, strength/motor function. ?? # Dispo Planning: Pending Course ?? CODE STATUS: Full Jerardo aCrter III, MD [facility] Department of Neurology Epilepsy Pager #[phone] 03/25/2019 11:01 AM Associated attestation - Farhan Wilder MD - 03/25/2019 1:41 PM EST Neurology (Staff) Addendum I saw and evaluated the patient. I have reviewed the resident's history, physical examination findings, assessment and plan during the visit and I agree with the details as written, unless otherwise specified as below. Farhan Wilder MD * JUAN JOSÉ Carter MD - 03/24/2019 10:16 AM EST [facility] Epilepsy Center EPILEPSY MONITORING UNIT- PROGRESS NOTE Chapin Costa: 48 y.o.: [id number]: Referring Provider: Rosario Varela, REINSURANCE CLERK: 03/24/19 Presenting Diagnosis/Chief Complaint: Seizures History of Present Illness/Description of Symptoms: Chapin Costa is a 48 y.o. 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 ?? Interval History: - Patient had one episode last night around 1900. Described as L hand and R foot shaking - Episode happened during IV insertion - Patient does not remember episode - EEG showed no seizure activity during the episode - Discussed stress management and possibility of engaging with a therapist. Patient is interested - Open to BIT consult MEDS ??? naproxen (Naprosyn) tablet 500 mg ??? sodium chloride 0.9 % (flush) flush 5 mL ??? sodium chloride 0.9 % (flush) flush 5-20 mL ??? lidocaine (XYLOCAINE) 10 mg/mL (1 %) injection 3 mg ??? enoxaparin (LOVENOX) injection 40 mg ??? amitriptyline (Elavil) tablet 25 mg ??? gabapentin (Neurontin) capsule 200 mg ??? gabapentin (Neurontin) capsule 100 mg ??? gemfibrozil (Lopid) tablet 600 mg ??? levothyroxine (Synthroid) tablet 25 mcg ??? metoprolol succinate XL (Toprol-XL) tablet 25 mg ??? sertraline (Zoloft) tablet 100 mg ??? topiramate (Topamax) tablet 25 mg Physical Exam: Blood pressure 124/84, temperature 36.7 ??C (98.1 ??F), temperature source Oral, resp. rate 17, height 167.6 cm (5' 5.98), weight 77.5 kg (170 lb 12.8 oz), SpO2 94 %. General: nondiaphoretic, no acute distress. Head/Neck:?? normocephalic/atraumatic.?? Oropharynx clear.?? CV: regular rate/rhythm, no murmurs/rubs/gallops.?? No carotid bruits ascultated. Pulm: clear to auscultation bilaterally. Extremities:?? no edema, no joint abnormalities. Neuro: Mental Status: alert and oriented to person, place and date. HEENT/CN: PERRL, EOMI, visual tony intact.?? Facial sensation intact, muscles of mastication normal. Symmetric smile, eyelids closed equally Hearing equal bilaterally Symmetric palate, midline tongue, no dysarthria. Normal shoulder shrug, normal head rotation strength Motor: Normal tone and bulk. ?? Strength 5/5 in upper and lower extremities.?? No pronator drift. No tremor or abnormal movements Reflex:? R: TJ? 2+,? BJ?? 2+,?? BRJ? 2+,?? Pat?? 2+,? AJ?? 2+,?? toes downgoing L: TJ? 2+,? BJ?? 2+,?? BRJ? 2+,?? Pat?? 2+,? AJ?? 2+,?? toes downgoing ? Sensation: intact to touch, temp, vibration, and proprioception throughout. Coordination: Normal kahgay-dtop-vljijv, rapid alternating movements, finger taps. Romberg not present, mild fine tremor with outstretched hands Gait:?? Normal gait with walking, mild difficulty with heel-toe Pertinent Data: Recent Results (from the past 24 hour(s)) Comprehensive metabolic panel (non-fasting) Result Value Ref Range Glucose Lvl 100 65 - 199 mg/dL BUN 16 10 - 20 mg/dL Creatinine 0.98 0.80 - 1.50 mg/dL Sodium 138 135 - 145 mmol/L Potassium 4.0 3.5 - 5.0 mmol/L Chloride 106 98 - 107 mmol/L CO2 20 (L) 22 - 31 mmol/L Anion Gap 12 5 - 15 mmol/L Calcium 9.0 8.5 - 10.5 mg/dL Total Protein 7.9 6.1 - 8.0 gm/dL Albumin 4.5 3.2 - 5.2 gm/dL AST 54 (H) 0 - 39 unit/L ALT 73 (H) 0 - 55 unit/L Alk Phos 119 40 - 130 unit/L Total Bilirubin 0.4 0.2 - 1.3 mg/dL eGFR 92 >=60 mL/min/1.73 m?? eGFR 107 >=60 mL/min/1.73 m?? Carbamazepine level, total Result Value Ref Range Carbamazepine Lvl 5.6 (L) 8.0 - 12.0 mg/L Hemogram Result Value Ref Range WBC 9.2 4.0 - 9.5 x10(3)/mcL RBC 4.92 4.58 - 5.54 x10(6)/mcL Hemoglobin 15.4 13.7 - 16.5 gm/dL Hematocrit 46.4 40.5 - 48.5 % MCV 94.3 (H) 82.9 - 93.1 fL MCH 31.3 27.5 - 32.1 pg MCHC 33.2 32.0 - 35.7 gm/dL Platelets 335 145 - 357 x10(3)/mcL RDWSD 44.6 36.0 - 45.0 fL RDWCV 13.0 11.4 - 13.8 % MPV 8.8 7.6 - 12.9 fL nRBC % Auto 0.0 % nRBC Abs Auto 0.000 0.000 - 0.000 x10(3)/mcL Differential, Automated Result Value Ref Range Neutrophils % 27.1 % Neutr Abs (ANC) 2.48 1.70 - 6.10 x10(3)/mcL Lymphocytes % 63.8 % Lymphocytes Abs 5.8 (H) 0.9 - 3.2 x10(3)/mcL Monocytes % 6.0 % Monocyte Abs 0.6 0.3 - 0.9 x10(3)/mcL Eosinophils % 1.7 % Eosinophils Abs 0.2 0.0 - 0.4 x10(3)/mcL Basophils % 1.2 % Basophils Abs 0.1 0.0 - 0.1 x10(3)/mcL Immature Gran % 0.20 % Ute Gran Abs 0.02 0.00 - 0.04 x10(3)/mcL Bilirubin, Direct Result Value Ref Range Bili, Direct 0.1 0.0 - 0.3 mg/dL Scan, Peripheral Blood Result Value Ref Range Plat Estimate Normal RBC Morphology Normal Atypical Lymph Moderate Assessment: This is a 48 y.o. y/o male with PMHx of congenital aqueduct stenosis/hydrocephalus and VPS with multiple revisions, chronic daily headaches, hypothyroidism, and depression who presents for video EEG monitoring for further evaluation and??differnetial diagnosis/characterization of events, suspicious epilepsy vs non-epileptic seizures. In order to precipitate seizure activity antiepileptic medication will be withheld. This places the patient at a high risk for seizures and status epilepticus, warranting inpatient admission for close monitoring and safety precautions. His carbamazepine was discontinued upon admission. ?? 03/24/19 - patient did have one episode last night that was captured and EEG was normal. Will continue to monitor for additional events. Instructed patient to atte,pt sleep deprivation and thinking about stressors to provoke additional episodes. He did have a mild transaminitis on admission labs. Discussed involving BIT team with patient and he was very receptive. ?? Plan:? #?Admit to neurology ?? 24 hour Video EEG monitoring ? Seizure precautions ? If no seizure by HD2: Photic, HV, Sleep Deprive ? Basic labs on admission, including AED levels ?? Prophylaxis:?? ? Do not use tylenol for pain ? SCDs, Lovenox, ambulate frequently to prevent DVTs. ? Hydroxyzine 25mg q4hrs prn anxiety ? BMX for tongue bite ?? #? AED plan: -AEDs: Continue Topiramate 25mg bid, gabapentin 100mg am/200mg hs Discontinue Carbamazepine ? # Unspecified depression - Continue home sertraline and amitriptyline ?? #? Rescue plan for acute repetitive seizures ?2mg IV Ativan after 1 GTC or 3 focal with impaired awareness (complex partial) seizures in 24 hours or any seizure lasting longer than 5 minutes. ?? # ?? Nursing seizure exam plan: ? Standard Exam: Assess A&O status, give code word for later recall, follow simple/complex commands, assess language, strength/motor function. ?? # Dispo Planning: Pending Course ?? CODE STATUS: Full Jerardo Carter III, MD [facility] Epilepsy Program Department of Neurology Epilepsy Pager #[phone] 03/24/2019 10:16 AM Associated attestation - Farhan Wilder MD - 03/25/2019 1:41 PM EST Neurology (Staff) Addendum I saw and evaluated the patient. I have reviewed the resident's history, physical examination findings, assessment and plan during the visit and I agree with the details as written, unless otherwise specified as below. Farhan Wilder MD * Gina Duong RN - 03/23/2019 7:47 PM EST EVENT NOTE: TIME OF EVENT: 1934 TYPE: Push button AURA: none ESTIMATED DURATION: 2 min IV inserted, pt had event when needle inserted. EXAM: Alert, oriented, following commands, naming objects Stated name when asked, unresponsive for a few seconds, then began answering questions again. Followed commands, naming objects/their use. Tremors in LEFT hand and RIGHT foot. Eyelids flickered for 1-2 seconds. Numbness in R big toe. REMEMBER CODE WORD: Not Performed INTERVENTIONS: Notified MD, reassurance provided Side rails padded, O2 set up, Masimo on, suction set up, patient visable on camera, call shell within reach, push button on door side of room. * Gina Duong RN - 03/23/2019 6:07 PM EST OUTCOME EVALUATION NOTE: OUTCOME SUMMARY: A+Ox4. VSS. 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 Settling in room, resting with eyes closed. Awaiting IV insertion/labs to be drawn. PLAN MOVING FORWARD: Have an event. D/C planning. INDIVIDUALIZED FALL PREVENTION INTERVENTIONS: Patient-specific fall risk factors per assessment: fall hx, seizure precautions, seizure hx. Assistance: SBA, Supervision: Arms reach Surveillance: Bed locked in low position, call shell within reach, purposeful hourly rounding, clutter free environment, bed/chair alarm on Patient-specific fall prevention interventions for sensory deficits provided: N/A CPG GOAL OUTCOME EVALUATION: Continue care plan as documented. * Gina Duong RN - 03/23/2019 3:36 PM EST Chapin Costa arrived to 509 @ 1530 [facility]. Oriented to room, call shell within reach, educated on importance of using prior to getting OOB, AVSS, belongings updated in eDH, bed locked in low position, purposeful hourly rounding, bed/chair alarm on. documented in this encounter H&P Notes * JUAN JOSÉ Carter MD - 03/23/2019 1:10 PM EST [facility] EPILEPSY MONITORING UNIT- ADMISSION H&P Referring Provider: Dr. Wilder/Dr. Leach PCP: Rosario Varela APRN Presenting Diagnosis/Chief Complaint: PNES vs. Epileptic events History of Present Illness/Description of Symptoms: Chapin Costa is a 48 y.o. 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 Chapin reports that he has a history of grand mal seizures when he was a child and has been on carbamazepine basically my entire life. However, he started to have breakthrough seizures in 2018 for which he presented to the ED at [facility]. Patient does not have any auras. The episodes typically last 10-20 minutes and he sun snot use any abortive medications. He reportsthat he does not remember what is going on during these episodes. His eyes remain open. Patient's is present during interview and reports that he does speak but his speech in nonsensical and broken during the episodes. Patient denies a history of physical, sexual, or emotional abuse as a child or currently. He reports that his current antidepressant regimen is adequately maintaining his mood He is due for a testosterone injection on Thursday of this week. 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 Did not have any seizures up until last year. Semiology: Event type # 1 Semiology: absence: blank stare +/- body shake/tremor but waking in between (on/off but patient reports he does not recall them and is unaware; eyes sometimes open sometimes closed; no convulsion, bite tongue, bowel/bladder control, no dizziness, blurry vision, palpitation, chest pain around the time) Aura: no Postictal: feels tired Onset: since he was a kid but then none for at least 10 years and they are back from few months ago Duration: varies 5-20 min Frequency: Usually rarely but lately every few weeks Triggers: unknown Diurnal variation: only day ?? Event type # 2 Semiology: partials: grabbed his 's leg hard (sat next to him) then started twitching/tremor in hands and less responsive Aura: none Postictal: tired Onset: Only 2 events, Within few days over the past 2 weeks Duration: About 30 min Triggers: unknown Diurnal variation: day Frequency: Seizures are happening approximately 2-3 times per week at this point; unable to clarifyfrequency of each semiology Triggers: stress History of: [] Status Epilepticus [x] Tongue biting (woke up in the morning with sore tongue) [] Incontinence [] Post-ictal psychosis Risk factors for epilepsy: [] Head trauma (Note if any LOC/How long?) [] Meningoencephalitis [] complications [] Complex febrile seizures [] Family history of epilepsy Risk factors for nonepileptic seizures: [] Greater than 3 seizure types [] Pre-ictal headache [] Ictal eye closure [] Ictal crying [x] Multiple AEDs [x] Seizures greater than 5 minutes [x] Prior psych treatment - Depression [] History of sz in close friend / relative [] History of suicide attempt [] Greater than 12 drinks per week [] Fibromyalgia [] Malpractice lawsuit [] Sexual or physical abuse Current AEDS: TPM 25mg bid (for headaches), GBP 100mg am/200mg hs (started for pain), CMZ 600mg am/400mg pm (patient has been on CMZ pretty much my whole life due to absence seizures as a child) Recent Levels: Pending Past AEDs: Only TPM, CBZ, GBP Psychiatric history: Unspecified depression Allergies: Allergies Allergen Reactions ??? Penicillins ??? Vancomycin Analogues ??? Vancomycin Hcl Medical/Surgical History: Patient Active Problem List Diagnosis Code ??? S/P TECHNICAL SUPPORT DIRECTOR shunt Z98.2 ??? Persistent headaches R51 ??? Headache R51 ??? Neck pain M54.2 - Depression (currently on sertraline and amitriptyline) No past surgical history on file. No current facility-administered medications on file prior to encounter. Current Outpatient Medications on File Prior to Encounter Medication Sig Dispense Refill ??? metoprolol succinate XL (Toprol-XL) 25 mg Tablet Sustained Release 24 hr Take 25 mg by mouth daily. ??? rizatriptan (MAXALT) 10 mg Tablet Take 1 tablet by mouth as needed for Migraine. 10 tablet 0 ??? topiramate (TOPAMAX) 25 mg Tablet Take 1 tablet by mouth 2 times daily. 60 tablet 5 ??? candesartan (ATACAND) 8 mg Tablet Take 1 tablet by mouth daily. (Patient not taking: Reported on 03/17/2019) 90 tablet 3 ??? amitriptyline (ELAVIL) 25 mg Tablet Take 25 mg by mouth nightly. ??? gabapentin (NEURONTIN) 100 mg Capsule 100 mg AM/ 200 mg HS 90 capsule 3 ??? cyclobenzaprine (FLEXERIL) 5 mg Tablet Take 1 tablet by mouth nightly. 30 tablet 0 ??? carBAMazepine (TEGRETOL) 200 mg Tablet Take by mouth 2 times daily. Indications: 600mg in AM, 400mg in PM ??? levothyroxine (SYNTHROID) 25 mcg Tablet Take 25 mcg by mouth daily. ??? sertraline (ZOLOFT) 100 mg Tablet Take 100 mg by mouth daily. 0 ??? testosterone cypionate (DEPOTESTOSTERONE CYPIONATE) 200 mg/mL Oil Inject into the muscle every 14 days. 0 ??? gemfibrozil (LOPID) 600 mg Tablet Take 600 mg by mouth 2 times daily (before meals). Family History: No family history on file. No family history of epilepsy. Social History: reports that he has never smoked. He has never used smokeless tobacco. He reports that he does not drink alcohol or use drugs. 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 ENT: no sore throat or dysphagia, denies rhinorrhea. CVS: denies CP, palpitations Respiratory: denies SOB, denies cough. GI: no reflux, no abdominal discomfort, no diarrhea/constipation, no nausea/vomiting. : no dysuria or hematuria Musculoskeletal: no myalgias, no acute joint pain or swelling Skin: no rashes or bruises Endocrine: denies h/o DM, denies h/o thyroid disorder Neuro: see HPI Physical Exam: There were no vitals taken for this visit. General: nondiaphoretic, no acute distress. Head/Neck: normocephalic/atraumatic. Oropharynx clear. CV: regular rate/rhythm, no murmurs/rubs/gallops. No carotid bruits ascultated. Pulm: clear to auscultation bilaterally. Extremities: no edema, no joint abnormalities. Neuro: Mental Status: alert and oriented to person, place and date. HEENT/CN: PERRL, EOMI, visual tony intact. Facial sensation intact, muscles of mastication normal. Symmetric smile, eyelids closed equally Hearing equal bilaterally Symmetric palate, midline tongue, no dysarthria. Normal shoulder shrug, normal head rotation strength Motor: Normal tone and bulk. Strength 5/5 in upper and lower extremities. No pronator drift. No tremor or abnormal movements Reflex: R: TJ 2+, BJ 2+, BRJ 2+, Pat 2+, AJ 2+, toes downgoing L: TJ 2+, BJ 2+, BRJ 2+, Pat 2+, AJ 2+, toes downgoing Sensation: intact to touch, temp, vibration, and proprioception throughout. Coordination: Normal vkhnir-jhhi-iennwh, rapid alternating movements, finger taps. Romberg not present, mild fine tremor with outstretched hands Gait: Normal gait with walking, mild difficulty with heel-toe Data: Prior workup: MRI: 03/2018: IMPRESSION 1. No acute disease. 2. Right frontal ventriculoperitoneal catheter shunt remains in place with a slitlike appearance throughout the majority of the lateral ventricles and the third ventricle. ??Please correlate clinically for any evidence of over shunting although there is no slumping of the brainstem. 3. No CSF flow through the cerebral aqueduct or about the dorsal aspect of the craniocervical junction consistent with severe aqueductal stenosis Assessment: This is a 48 y.o. y/o male with PMHx of congenital aqueduct stenosis/hydrocephalus and VPS with multiple revisions, chronic daily headaches, hypothyroidism, and depression who presents for video EEG monitoring for further evaluation and differnetial diagnosis/characterization of events, suspicious epilepsy vs non-epileptic seizures. In order to precipitate seizure activity antiepileptic medication will be withheld. This places the patient at a high risk for seizures and status epilepticus, warranting inpatient admission for close monitoring and safety precautions. Plan: # Admit to neurology ?? 24 hour Video EEG monitoring ?? Seizure precautions ?? If no seizure by HD2: Photic, HV, Sleep Deprive ?? Basic labs on admission, including AED levels ?? Prophylaxis: ?? Tylenol for pain ?? SCDs, Lovenox, ambulate frequently to prevent DVTs. ?? Hydroxyzine 25mg q4hrs prn anxiety ?? BMX for tongue bite # AED plan: -AEDs: Continue Topiramate 25mg bid, gabapentin 100mg am/200mg hs Discontinue Carbamazepine -Other Medications: Continue: Discontinue: # Unspecified depression - Continue home sertraline and amitriptyline # Rescue plan for acute repetitive seizures 2mg IV Ativan after 1 GTC or 3 focal with impaired awareness (complex partial) seizures in 24 hoursor any seizure lasting longer than 5 minutes. # Nursing seizure exam plan: ?? Standard Exam: Assess A&O status, give code word for later recall, follow simple/complex commands, assess language, strength/motor function. # Dispo Planning: Pending Course CODE STATUS: Full Jerardo Carter III, MD Epilepsy Monitoring Unit Team Pager: [phone] Associated attestation - Farhan Wilder MD - 03/23/2019 4:32 PM EST Neurology (Staff) Addendum I saw and evaluated the patient. I have reviewed the resident's history, physical examination findings, assessment and plan during the visit and I agree with the details as written, unless otherwise specified as below. 48-year-old man admitted for video EEG monitoring for differential diagnosis regarding epilepsy versus psychogenic nonepileptic seizures. History reviewed and patient seen and examined. Admit to video EEG monitoring with standard rescue and safety protocols. Stop carbamazepine, continue all other seizure drugs. Farhan Wilder MD documented in this encounter Procedure Notes * Farhan Wilder MD - 03/28/2019 2:23 PM ESTAssociated Order(s): VIDEO EEG MONITORING [facility] Department of Neurology Inpatient Video EEG Report Name of the Patient: Chapin Costa Date of : 1970 Start Time: 03/27/2019 07:30 Stop Time: 03/28/2019 07:30 Resident/Fellow: Coral Arauz MD Attending: Dr. Wilder BRIEF HISTORY Chapin Costa is a 48 y.o. year old patient with history of seizures and hydrocephalus, admitted to the EMU for spell capture. MEDICATIONS Current Facility-Administered Medications Medication Dose Route Frequency Provider Last Rate Last Dose ??? naproxen (Naprosyn) tablet 500 mg 500 mg Oral BID PRN Delaney Escamilla REINSURANCE CLERK 500 mg at 03/27/19 1652 ??? sodium chloride 0.9 % (flush) flush 5 mL 5 mL Intravenous BID Susan Johnson REINSURANCE CLERK 5 mL at 03/28/19 0828 ??? sodium chloride 0.9 % (flush) flush 5-20 mL 5-20 mL Intravenous Q1 Min PRN Susan Johnson REINSURANCE CLERK ??? lidocaine (XYLOCAINE) 10 mg/mL (1 %) injection 3 mg 0.3 mL Subcutaneous Once PRN Susan Johnson REINSURANCE CLERK ??? enoxaparin (LOVENOX) injection 40 mg 40 mg Subcutaneous Nightly Susan Johnson REINSURANCE CLERK 40 mg at 03/27/19 2223 ??? amitriptyline (Elavil) tablet 25 mg 25 mg Oral Nightly Susan Johnson, REINSURANCE CLERK 25 mg at 03/27/192222 ??? gemfibrozil (Lopid) tablet 600 mg 600 mg Oral BID AC Susan Johnson, REINSURANCE CLERK 600 mg at 03/28/19827 ??? levothyroxine (Synthroid) tablet 25 mcg 25 mcg Oral Daily Susan Johnson, REINSURANCE CLERK 25 mcg at 03/28/19827 ??? metoprolol succinate XL (Toprol-XL) tablet 25 mg 25 mg Oral Daily Susan Johnson, REINSURANCE CLERK 25 mg at 03/28/19827 ??? sertraline (Zoloft) tablet 100 mg 100 mg Oral Nightly Susan Johnson, REINSURANCE CLERK 100 mg at 03/27/192222 Current Outpatient Medications Medication Sig Dispense Refill ??? metoprolol succinate XL (Toprol-XL) 25 mg Tablet Sustained Release 24 hr Take 25 mg by mouth daily. ??? rizatriptan (MAXALT) 10 mg Tablet Take 1 tablet by mouth as needed for Migraine. 10 tablet 0 ??? topiramate (TOPAMAX) 25 mg Tablet Take 1 tablet by mouth 2 times daily. 60 tablet 5 ??? amitriptyline (ELAVIL) 25 mg Tablet Take 25 mg by mouth nightly. ??? gabapentin (NEURONTIN) 100 mg Capsule 100 mg AM/ 200 mg HS 90 capsule 3 ??? levothyroxine (SYNTHROID) 25 mcg Tablet Take 25 mcg by mouth daily. ??? sertraline (ZOLOFT) 100 mg Tablet Take 100 mg by mouth daily. 0 ??? testosterone cypionate (DEPOTESTOSTERONE CYPIONATE) 200 mg/mL Oil Inject into the muscle every 14 days. 0 ??? gemfibrozil (LOPID) 600 mg Tablet Take 600 mg by mouth 2 times daily (before meals). ??? candesartan (ATACAND) 8 mg Tablet Take 1 tablet by mouth daily. (Patient not taking: Reported on 03/17/2019) 90 tablet 3 METHODS A 21 channel digitized electroencephalogram was performed in the Epilepsy Monitoring Unit by the [facility] Clinical Neurophysiology Laboratory. The 10/20 international system of electrode placement was used and bipolar and referential electrode montages were recorded. In addition to EEG the patient was monitored for EKG and lateral/vertical eye movements. Video was recorded during the session. The patient was recorded during wakefulness, drowsiness, and sleep. ELECTROENCEPHALOGRAPHER'S REPORT Background During the awake state with the eyes closed the background consisted of a moderate amplitude, 9 Hz posterior reactive rhythm that attenuated appropriately with eye opening. Beta activity was distributed diffusely with an anterior predominance. There was a normal anterior-posterior voltage gradient.With eye opening the background activity changed to a low voltage mixture of alpha, beta, and occasional theta range frequencies. There was higher amplitude and frequency waves over the right temporal region consistent with breach rhythm. Sleep Stage II/III sleep was obtained and consisted of symmetrical sleep spindles, vertex sharp waves, and diffuse delta slowing. Abnormal Interictal Activity There were suspicious right posterior temporal sharp waves that were not clearly epileptiform. Clinical Events Event #1, 03/23/2019 19:31 Clinical Symptoms: left hand and right foot tremulous movements, which waxed and waned with retained consciousness EEG Changes: There were no significant or abnormal EEG changes before, during, or after the event. Event #2, 03/25/2019 11:42 Clinical Symptoms: I feel shaky all over. EEG Changes: There were no significant or abnormal EEG changes before, during, or after the event. Event #3, 03/25/2019 11:51 Clinical Symptoms: Upper body jerking, left arm and left foot tremor, not consistently communicating with staff EEG Changes: There were no significant or abnormal EEG changes before, during, or after the event. Event #4: 03/26/2019 14:02 Clinical Symptoms: Did not respond to RN after sitting down in chair EEG Changes: There were no significant or abnormal EEG changes before, during, or after the event Event #5: 03/27/2019 14:58 Clinical Symptoms: Pt was sleeping and had arrhythmic jerking of his legs and left arm, seizure alarm goes off. Nurse checks in on the patient, and patient does not respond and keeps eyes closed. Within 1 minute pt able to speak clearly and answering all questions. EEG changes: No abnormal EEG correlate before, during or after the event. Provocative Maneuvers Hyperventilation was not performed. Photic stimulation was not performed. INTERPRETATION This is an abnormal awake and asleep EEG due to ?? Five events listed above that did not have an abnormal EEG correlate ?? 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 Coral Arauz MD Clinical Neurophysiology Fellow #[id number] 03/28/2019 I reviewed the EEG and I agree with the interpretation as written. Farhan Wilder MD * David Napier - 03/26/2019 1:17 PM EST [facility] Department of Neurology Inpatient Video EEG Report Name of the Patient: Chapin Costa Date of : 1970 Start Time: 03/26/2019 07:30 Stop Time: 03/27/2019 07:30 Resident/Fellow: David Napier MD Attending: Rishi Hagan MD PhD BRIEF HISTORY Chapin Costa is a 48 y.o. year old patient with history of seizures and hydrocephalus, admitted to the EMU for spell capture. MEDICATIONS Current Facility-Administered Medications Medication Dose Route Frequency Provider Last Rate Last Dose ??? naproxen (Naprosyn) tablet 500 mg 500 mg Oral BID PRN Delaney Escamilla APRN 500 mg at 03/24/19 0924 ??? sodium chloride 0.9 % (flush) flush 5 mL 5 mL Intravenous BID Susan Johnson APRN 5 mL at 03/26/19 0801 ??? sodium chloride 0.9 % (flush) flush 5-20 mL 5-20 mL Intravenous Q1 Min PRN Susan Johnson APRN ??? lidocaine (XYLOCAINE) 10 mg/mL (1 %) injection 3 mg 0.3 mL Subcutaneous Once PRN Susan Johnson APRN ??? enoxaparin (LOVENOX) injection 40 mg 40 mg Subcutaneous Nightly Susan Johnson REINSURANCE CLERK 40 mg at 03/25/19 2250 ??? amitriptyline (Elavil) tablet 25 mg 25 mg Oral Nightly Susan Johnson, REINSURANCE CLERK 25 mg at 03/25/19 2249 ??? gemfibrozil (Lopid) tablet 600 mg 600 mg Oral BID AC Susan Johnson REINSURANCE CLERK 600 mg at 03/26/19 0748 ??? levothyroxine (Synthroid) tablet 25 mcg 25 mcg Oral Daily Susan Johnson REINSURANCE CLERK 25 mcg at 03/26/19 0758 ??? metoprolol succinate XL (Toprol-XL) tablet 25 mg 25 mg Oral Daily Susan Johnson REINSURANCE CLERK 25 mg at 03/26/19 0758 ??? sertraline (Zoloft) tablet 100 mg 100 mg Oral Nightly Susan Johnson REINSURANCE CLERK 100 mg at 03/25/192248 METHODS A 21 channel digitized electroencephalogram was performed in the Epilepsy Monitoring Unit by the [facility] Clinical Neurophysiology Laboratory. The 10/20 international system of electrode placement was used and bipolar and referential electrode montages were recorded. In addition to EEG the patient was monitored for EKG and lateral/vertical eye movements. Video was recorded during the session. The patient was recorded during wakefulness, drowsiness, and sleep. ELECTROENCEPHALOGRAPHER'S REPORT Background During the awake state with the eyes closed the background consisted of a moderate amplitude, 9 Hz posterior reactive rhythm that attenuated appropriately with eye opening. Beta activity was distributed diffusely with an anterior predominance. There was a normal anterior-posterior voltage gradient.With eye opening the background activity changed to a low voltage mixture of alpha, beta, and occasional theta range frequencies. There was higher amplitude and frequency waves over the right temporal region consistent with breach rhythm. Sleep Stage II/III sleep was obtained and consisted of symmetrical sleep spindles, vertex sharp waves, and diffuse delta slowing. Abnormal Interictal Activity There were suspicious right posterior temporal sharp waves that were not clearly epileptiform. Clinical Events Event #1, 03/23/2019 19:31 Clinical Symptoms: left hand and right foot tremulous movements, which waxed and waned with retained consciousness EEG Changes: There were no significant or abnormal EEG changes before, during, or after the event. Event #2, 03/25/2019 11:42 Clinical Symptoms: I feel shaky all over. EEG Changes: There were no significant or abnormal EEG changes before, during, or after the event. Event #3, 03/25/2019 11:51 Clinical Symptoms: Upper body jerking, left arm and left foot tremor, not consistently communicating with staff EEG Changes: There were no significant or abnormal EEG changes before, during, or after the event. Event #4: 03/26/2019 14:02 Clinical Symptoms: Did not respond to RN after sitting down in chair EEG Changes: There were no significant or abnormal EEG changes before, during, or after the event Provocative Maneuvers Hyperventilation was not performed. Photic stimulation was not performed. INTERPRETATION This is an abnormal awake and asleep EEG due to ?? Four events listed above that did not have an abnormal EEG correlate ?? Right temporal breach rhythm CLINICAL CORRELATION EEG showing right temporal breach rhythm consistent with history of TECHNICAL SUPPORT DIRECTOR shunt and craniotomy, with sharply contoured waves that were not clearly epileptiform. Three typical events captured did not show an abnormal EEG correlate. No clear epileptiform discharges or electrographic seizures. David Napier MD Clinical Neurophysiology Fellow #[id number] 03/26/2019 Associated attestation - Rishi Hagan Jr., MD - 03/27/2019 1:05 PM EST I have reviewed the EEG with the fellow and agree with the assessment above. Rishi Hagan MD, PhD Department of Neurology Personal Pager #[phone] 03/27/2019 1:05 PM * David Napier - 03/25/2019 8:00 AM EST [facility] Department of Neurology Inpatient Video EEG Report Name of the Patient: Chapin Costa Date of : 1970 Start Time: 03/25/2019 07:30 Stop Time: 03/26/2019 07:30 Resident/Fellow: David Napier MD Attending: Rishi Hagan MD PhD BRIEF HISTORY Chapin Costa is a 48 y.o. year old patient with history of seizures and hydrocephalus, admitted to the EMU for spell capture. MEDICATIONS Current Facility-Administered Medications Medication Dose Route Frequency Provider Last Rate Last Dose ??? naproxen (Naprosyn) tablet 500 mg 500 mg Oral BID PRN Delaney Escamilla REINSURANCE CLERK 500 mg at 03/24/19 0924 ??? sodium chloride 0.9 % (flush) flush 5 mL 5 mL Intravenous BID Susan Johnson, REINSURANCE CLERK 10 mL at 03/25/19 2252 ??? sodium chloride 0.9 % (flush) flush 5-20 mL 5-20 mL Intravenous Q1 Min PRN Susan Johnson REINSURANCE CLERK ??? lidocaine (XYLOCAINE) 10 mg/mL (1 %) injection 3 mg 0.3 mL Subcutaneous Once PRN Susan Johnson REINSURANCE CLERK ??? enoxaparin (LOVENOX) injection 40 mg 40 mg Subcutaneous Nightly Susan Johnson REINSURANCE CLERK 40 mg at 03/25/19 2250 ??? amitriptyline (Elavil) tablet 25 mg 25 mg Oral Nightly Susan Johnson, REINSURANCE CLERK 25 mg at 03/25/19 2249 ??? gemfibrozil (Lopid) tablet 600 mg 600 mg Oral BID AC Susan Johnson, REINSURANCE CLERK 600 mg at 03/26/19 0748 ??? levothyroxine (Synthroid) tablet 25 mcg 25 mcg Oral Daily Susan Johnson, REINSURANCE CLERK 25 mcg at 03/26/19 0758 ??? metoprolol succinate XL (Toprol-XL) tablet 25 mg 25 mg Oral Daily Susan Johnson, REINSURANCE CLERK 25 mg at 03/26/19 0758 ??? sertraline (Zoloft) tablet 100 mg 100 mg Oral Nightly Susan Johnson, REINSURANCE CLERK 100 mg at 03/25/19 2249 METHODS A 21 channel digitized electroencephalogram was performed in the Epilepsy Monitoring Unit by the [facility] Clinical Neurophysiology Laboratory. The 10/20 international system of electrode placement was used and bipolar and referential electrode montages were recorded. In addition to EEG the patient was monitored for EKG and lateral/vertical eye movements. Video was recorded during the session. The patient was recorded during wakefulness, drowsiness, and sleep. ELECTROENCEPHALOGRAPHER'S REPORT Background During the awake state with the eyes closed the background consisted of a moderate amplitude, 9 Hz posterior reactive rhythm that attenuated appropriately with eye opening. Beta activity was distributed diffusely with an anterior predominance. There was a normal anterior-posterior voltage gradient.With eye opening the background activity changed to a low voltage mixture of alpha, beta, and occasional theta range frequencies. There was higher amplitude and frequency waves over the right temporal region consistent with breach rhythm. Sleep Stage II/III sleep was obtained and consisted of symmetrical sleep spindles, vertex sharp waves, and diffuse delta slowing. Abnormal Interictal Activity There were suspicious right posterior temporal sharp waves that were not clearly epileptiform. Clinical Events Event #1, 03/23/2019 19:31 Clinical Symptoms: left hand and right foot tremulous movements, which waxed and waned with retained consciousness EEG Changes: There was no significant or abnormal EEG changes before, during, or after the event. Event #2, 03/25/2019 11:42 Clinical Symptoms: I feel shaky all over. EEG Changes: There was no significant or abnormal EEG changes before, during, or after the event. Event #3, 03/25/2019 11:51 Clinical Symptoms: Upper body jerking, left arm and left foot tremor, not consistently communicating with staff EEG Changes: There was no significant or abnormal EEG changes before, during, or after the event. Provocative Maneuvers Hyperventilation was not performed. Photic stimulation was not performed. INTERPRETATION This is an abnormal awake and asleep EEG due to ?? Three events listed above that did not have an abnormal EEG correlate ?? Right temporal breach rhythm CLINICAL CORRELATION EEG showing right temporal breach rhythm consistent with history of TECHNICAL SUPPORT DIRECTOR shunt and craniotomy, with sharply contoured waves that were not clearly epileptiform. Three typical events captured did not show an abnormal EEG correlate. No clear epileptiform discharges or electrographic seizures. David Napier MD Clinical Neurophysiology Fellow #[id number] 03/26/2019 Associated attestation - Rishi Hagan Jr., MD - 03/26/2019 1:37 PM EST I have reviewed the EEG with the fellow and agree with the assessment above. Rishi Hagan MD, PhD Department of Neurology Personal Pager #[phone] 03/26/2019 1:37 PM * Hudson Silver DO - 03/24/2019 10:00 AM EST [facility] Department of Neurology Inpatient Video EEG Report Name of the Patient: Chapin Costa Date of : 1970 Start Time: 03/24/2019 07:30 Stop Time: 03/25/2019 07:30 Resident/Fellow: Hudson Silver DO Attending: Henry Wilder MD BRIEF HISTORY Chapin Costa is a 48 y.o. year old patient with history of seizures and hydrocephalus, admitted to the EMU for spell capture. MEDICATIONS Current Facility-Administered Medications Medication Dose Route Frequency Provider Last Rate Last Dose ??? naproxen (Naprosyn) tablet 500 mg 500 mg Oral BID PRN Delaney Escamilla REINSURANCE CLERK 500 mg at 03/24/19 0924 ??? sodium chloride 0.9 % (flush) flush 5 mL 5 mL Intravenous BID Susan Johnson APRN 5 mL at 03/24/192202 ??? sodium chloride 0.9 % (flush) flush 5-20 mL 5-20 mL Intravenous Q1 Min PRN Susan Johnson APRN ??? lidocaine (XYLOCAINE) 10 mg/mL (1 %) injection 3 mg 0.3 mL Subcutaneous Once PRN Susan Johnson REINSURANCE CLERK ??? enoxaparin (LOVENOX) injection 40 mg 40 mg Subcutaneous Nightly Susan Johnson REINSURANCE CLERK 40 mg at 03/24/192201 ??? amitriptyline (Elavil) tablet 25 mg 25 mg Oral Nightly Susan Johnson REINSURANCE CLERK 25 mg at 03/24/192202 ??? gabapentin (Neurontin) capsule 200 mg 200 mg Oral Nightly Susan Johnson REINSURANCE CLERK 200 mg at 03/24/192201 ??? gabapentin (Neurontin) capsule 100 mg 100 mg Oral QAM Susan Johnson REINSURANCE CLERK 100 mg at 03/25/19 0738 ??? gemfibrozil (Lopid) tablet 600 mg 600 mg Oral BID AC Susan Johnson, REINSURANCE CLERK 600 mg at 03/25/19 0737 ??? levothyroxine (Synthroid) tablet 25 mcg 25 mcg Oral Daily Susan Johnson REINSURANCE CLERK 25 mcg at 03/24/19 0826 ??? metoprolol succinate XL (Toprol-XL) tablet 25 mg 25 mg Oral Daily Susan Johnson REINSURANCE CLERK 25 mg at 03/24/19 0825 ??? sertraline (Zoloft) tablet 100 mg 100 mg Oral Nightly Susan Johnson REINSURANCE CLERK 100 mg at 03/24/192201 ??? topiramate (Topamax) tablet 25 mg 25 mg Oral BID Susan Johnson REINSURANCE CLERK 25 mg at 03/24/192201 METHODS A 21 channel digitized electroencephalogram was performed in the Epilepsy Monitoring Unit by the [facility] Clinical Neurophysiology Laboratory. The 10/20 international system of electrode placement was used and bipolar and referential electrode montages were recorded. In addition to EEG the patient was monitored for EKG and lateral/vertical eye movements. Video was recorded during the session. The patient was recorded during wakefulness, drowsiness, and sleep. ELECTROENCEPHALOGRAPHER'S REPORT Background During the awake state with the eyes closed the background consisted of a moderate amplitude, 9 Hz posterior reactive rhythm that attenuated appropriately with eye opening. Beta activity was distributed diffusely with an anterior predominance. There was a normal anterior-posterior voltage gradient.With eye opening the background activity changed to a low voltage mixture of alpha, beta, and occasional theta range frequencies. There was higher amplitude and frequency waves over the right temporal region consistent with breach rhythm. Sleep Stage II/III sleep was obtained and consisted of symmetrical sleep spindles, vertex sharp waves, and diffuse delta slowing. Abnormal Interictal Activity There were suspicious right posterior temporal sharp waves that were not clearly epileptiform. Clinical Events Event #1, 03/23/2019 19:31 Clinical Symptoms: left hand and right foot tremulous movements, which waxed and waned with retained consciousness EEG Changes: There was no significant or abnormal EEG changes before, during, or after the event. Provocative Maneuvers Hyperventilation was not performed. Photic stimulation was not performed. INTERPRETATION This is an abnormal awake and asleep EEG due to ?? One event listed above that did not have an abnormal EEG correlate ?? Right temporal breach rhythm CLINICAL CORRELATION EEG showing right temporal breach rhythm consistent with history of TECHNICAL SUPPORT DIRECTOR shunt and craniotomy, with sharply contoured waves that were not clearly epileptiform. One typical event captured did not show an abnormal EEG correlate. No clear epileptiform discharges or electrographic seizures. Hudson Silver DO 03/25/2019 Epilepsy Fellow Personal Pager [phone] Associated attestation - Farhan Wilder MD - 03/25/2019 1:41 PM EST I reviewed the EEG and I agree with the interpretation as written. Farhan Wilder MD * Hudson Silver DO - 03/23/2019 5:00 PM EST [facility] Department of Neurology Inpatient Video EEG Report Name of the Patient: Chapin Costa Date of : 1970 Start Time: 03/23/2019 16:28 Stop Time: 03/24/2019 07:30 Resident/Fellow: Hudson Silver DO Attending: Henry Wilder MD BRIEF HISTORY Chapin Costa is a 48 y.o. year old patient with history of seizures and hydrocephalus, admitted to the EMU for spell capture. MEDICATIONS Current Facility-Administered Medications Medication Dose Route Frequency Provider Last Rate Last Dose ??? naproxen (Naprosyn) tablet 500 mg 500 mg Oral BID PRN Delaney Escamilla Deirdre, REINSURANCE CLERK 500 mg at 03/24/19 0924 ??? sodium chloride 0.9 % (flush) flush 5 mL 5 mL Intravenous BID Susan Johnson REINSURANCE CLERK 5 mL at 03/24/19 0827 ??? sodium chloride 0.9 % (flush) flush 5-20 mL 5-20 mL Intravenous Q1 Min PRN Susan Johnson REINSURANCE CLERK ??? lidocaine (XYLOCAINE) 10 mg/mL (1 %) injection 3 mg 0.3 mL Subcutaneous Once PRN Susan Johnson, REINSURANCE CLERK ??? enoxaparin (LOVENOX) injection 40 mg 40 mg Subcutaneous Nightly Susan Johnson, REINSURANCE CLERK 40 mg at 03/23/192013 ??? amitriptyline (Elavil) tablet 25 mg 25 mg Oral Nightly Susan Johnson, REINSURANCE CLERK 25 mg at 03/23/192012 ??? gabapentin (Neurontin) capsule 200 mg 200 mg Oral Nightly Susan Johnson, REINSURANCE CLERK 200 mg at 03/23/192013 ??? gabapentin (Neurontin) capsule 100 mg 100 mg Oral QAM Susan Johnson, REINSURANCE CLERK ??? gemfibrozil (Lopid) tablet 600 mg 600 mg Oral BID AC Susan Johnson, REINSURANCE CLERK 600 mg at 03/24/19 0825 ??? levothyroxine (Synthroid) tablet 25 mcg 25 mcg Oral Daily Susan Johnson REINSURANCE CLERK 25 mcg at 03/24/19 0826 ??? metoprolol succinate XL (Toprol-XL) tablet 25 mg 25 mg Oral Daily Susan Johnson, REINSURANCE CLERK 25 mg at 03/24/19 0825 ??? sertraline (Zoloft) tablet 100 mg 100 mg Oral Nightly Susan Johnson, REINSURANCE CLERK 100 mg at 03/23/192013 ??? topiramate (Topamax) tablet 25 mg 25 mg Oral BID Susan Johnson, REINSURANCE CLERK 25 mg at 03/23/192013 METHODS A 21 channel digitized electroencephalogram was performed in the Epilepsy Monitoring Unit by the [facility] Clinical Neurophysiology Laboratory. The 10/20 international system of electrode placement was used and bipolar and referential electrode montages were recorded. In addition to EEG the patient was monitored for EKG and lateral/vertical eye movements. Video was recorded during the session. The patient was recorded during wakefulness, drowsiness, and sleep. ELECTROENCEPHALOGRAPHER'S REPORT Background During the awake state with the eyes closed the background consisted of a moderate amplitude, 9 Hz posterior reactive rhythm that attenuated appropriately with eye opening. Beta activity was distributed diffusely with an anterior predominance. There was a normal anterior-posterior voltage gradient.With eye opening the background activity changed to a low voltage mixture of alpha, beta, and occasional theta range frequencies. There was higher amplitude and frequency waves over the right temporal region consistent with breach rhythm. Sleep Stage II/III sleep was obtained and consisted of symmetrical sleep spindles, vertex sharp waves, and diffuse delta slowing. Abnormal Interictal Activity There were suspicious right posterior temporal sharp waves that were not clearly epileptiform. Clinical Events Event #1, 03/23/2019 19:31 Clinical Symptoms: left hand and right foot tremulous movements, which waxed and waned with retained consciousness EEG Changes: There was no significant or abnormal EEG changes before, during, or after the event. Provocative Maneuvers Hyperventilation was not performed. Photic stimulation was not performed. INTERPRETATION This is an abnormal awake and asleep EEG due to ?? One event listed above that did not have an abnormal EEG correlate ?? Right temporal breach rhythm CLINICAL CORRELATION EEG showing right temporal breach rhythm consistent with history of TECHNICAL SUPPORT DIRECTOR shunt and craniotomy, with sharply contoured waves that were not clearly epileptiform. One event captured did not show an abnormal EEG correlate. No clear epileptiform discharges or electrographic seizures. Hudson Silver DO 03/24/2019 Epilepsy Fellow Personal Pager [phone] Associated attestation - Farhan Wilder MD - 03/24/2019 4:27 PM EST I reviewed the EEG and I agree with the interpretation as written. Farhan Wilder MD documented in this encounter Miscellaneous Notes * Plan of Care - Dianelys Angel RN - 03/28/2019 6:35 AM EST Problem: Patient Care Overview Goal: Plan of Care Review Outcome: Ongoing (Interventions Implemented as Appropriate) 03/26/19201103/27/191999 Coping/Psychosocial Plan Of Care Reviewed With -- patient Plan of Care Review Progress progress toward functional goals as expected -- OUTCOME EVALUATION NOTE: ?? OUTCOME SUMMARY: ?? A+Ox4, AVSS, No events noted overnight. C/O R side knee pain- chronic, but worsened after event he had on 03/27. OOB to bathroom to void. No acute changes noted. ??Pt feeling frustrated about situation/medical issues. ?? PLAN MOVING FORWARD: ?? Have event Stop AEDs D/C planning. ?? INDIVIDUALIZED FALL PREVENTION INTERVENTIONS: ?? Patient-specific fall risk factors per assessment: seizure precautions, seizure hx, fall hx ?? Assistance: SBA, FWW with distance ?? Supervision:??Arms reach ?? Surveillance: Bed locked in low position, call shell within reach, purposeful hourly rounding, clutter free environment, bed/chair alarm on ?? Patient-specific fall prevention interventions for sensory deficits provided:??N/A ?? CPG GOAL OUTCOME EVALUATION:? Continue care plan as documented. * Plan of Care - Deja Ashley RN - 03/27/2019 5:18 PM EST Problem: Patient Care Overview Goal: Plan of Care Review Outcome: Ongoing (Interventions Implemented as Appropriate) 03/26/192011 Coping/Psychosocial Plan Of Care Reviewed With patient Plan of Care Review Progress progress toward functional goals as expected OUTCOME EVALUATION NOTE: OUTCOME SUMMARY: Pt is alert and oriented, resting in bed, vEEG in progress, seizure pads on bed. Pt had visit from family, tolerates regular diet, ambulates to restroom with supervision, voiding. Pthad one event occurrence while taking a nap this afternoon (see progress note), MD notified. Pt hascomplained of right lateral knee pain since the event occurred, walking with a limp, medicated with naprosyn. PLAN MOVING FORWARD: Continue with neuro checks and seizure precautions INDIVIDUALIZED FALL PREVENTION INTERVENTIONS: Patient-specific fall risk factors per assessment: [current deficits]: seizures Assistance [level of assistance required for transfers and ambulation]: Stand by Supervision [direct monitoring required during toileting and ADLs]: Direct visual Surveillance [continuous indirect monitoring]: Purposeful rounding Patient-specific fall prevention interventions for sensory deficits provided, if applicable: no Goal: Individualization & Mutuality Outcome: Ongoing (Interventions Implemented as Appropriate) 03/27/19 170 Individualization Patient Specific Goals visit with family, relief from knee pain Patient Specific Interventions vEEG monitoring, seizure precautions Goal: Fall Prevention-Safe Patient Handling Outcome: Ongoing (Interventions Implemented as Appropriate) 03/26/19199903/27/19 1300 03/27/19 1400 [place] Fall Risk History of Falling 25 -- -- Secondary Diagnosis 15 -- -- Ambulatory Aids 0 -- -- Intravenous Therapy/Heparin/Saline Lock 20 -- -- Gait/Transferring 0 -- -- Mental Status 0 -- -- Score 60 -- -- OTHER [place] Fall Risk High -- -- Restraint Interventions Safety Promotion/Fall Prevention -- -- safety round/check completed;nonskid shoes/slippers when outof bed;fall prevention program maintained;activity supervised Positioning Body Position -- independent -- Activity Activity Type -- -- -- Activity Assistance Provided -- -- -- Assistive Device Utilized -- -- -- 03/27/19 1700 [place] Fall Risk History of Falling -- Secondary Diagnosis -- Ambulatory Aids -- Intravenous Therapy/Heparin/Saline Lock -- Gait/Transferring -- Mental Status -- Score -- OTHER [place] Fall Risk -- Restraint Interventions Safety Promotion/Fall Prevention -- Positioning Body Position -- Activity Activity Type ambulated to bathroom Activity Assistance Provided assistance, stand-by Assistive Device Utilized none Goal: Infection Control Outcome: Ongoing (Interventions Implemented as Appropriate) 03/26/19199903/27/19 0900 03/27/19 1300 Safety Interventions Isolation Precautions -- -- standard precautions maintained Infection Prevention -- environmental surveillance performed;single patient room provided;rest/sleep promoted -- Coping Strategies Supportive Measures active listening utilized;counseling provided;self- reflection promoted;self-responsibility promoted;verbalization of feelings encouraged -- -- Goal: Discharge Needs Assessment Outcome: Ongoing (Interventions Implemented as Appropriate) 03/27/19 170 Discharge Needs Assessment Readmission Within The Last 30 Days no previous admission in last 30 days Provider Choice List(s) Given yes Equipment Needed After Discharge none Discharge Disposition still a patient Current Health Anticipated Changes Related to Illness none Living Environment Transportation Available family or friend will provide Goal: Interdisciplinary Rounds/Family Conf 03/27/19 170 Interdisciplinary Rounds/Family Conf Participants nursing;patient;physician * Plan of Care - Deja Ashley RN - 03/27/2019 3:03 PM EST Pt was sleeping when seizure alarm activated and pt found to be unresponsive with eyes closed and left arm and leg jerking movements for about 30 seconds. Pt unable to say where he was, but able to say his name and follow commands x 4, right leg weakness, pupils dilated, equal and brisk. Within 1 minute pt able to speak clearly, oriented x 4, right leg remains weak, but getting stronger. * Plan of Care - Gina Crystal RN - 03/27/2019 5:54 AM EST Problem: Patient Care Overview Goal: Plan of Care Review Outcome: Ongoing (Interventions Implemented as Appropriate) 03/26/192011 Coping/Psychosocial Plan Of Care Reviewed With patient Plan of Care Review Progress progress toward functional goals as expected OUTCOME EVALUATION NOTE: OUTCOME SUMMARY: Pt AAOx4, AVSS, no complaints of pain. Pt's mood flat, states he wants to go home. Cooperative withcare, speaking on phone with friend before bed. Rested comfortably between care, no push button events or automated alarms overnight. Seizure precautions maintained. PLAN MOVING FORWARD: D/c planning INDIVIDUALIZED FALL PREVENTION INTERVENTIONS: Patient-specific fall risk factors per assessment: risk for seizures, lines/devices Assistance: SBA Supervision: Hands on Surveillance: Bed locked in low position, call shell within reach, purposeful hourly rounding, clutter free environment, bed/chair alarm on Patient-specific fall prevention interventions for sensory deficits provided: N/A CPG GOAL OUTCOME EVALUATION: Continue care plan as documented. * Plan of Care - Stefani Lewis RN - 03/26/2019 8:17 PM EST Problem: Patient Care Overview Goal: Plan of Care Review 03/26/192011 Coping/Psychosocial Plan Of Care Reviewed With patient Plan of Care Review Progress progress toward functional goals as expected OUTCOME EVALUATION NOTE: ?? OUTCOME SUMMARY: ?? A+Ox4. Pt ambulated short distance in the hallway with nursing staff per MD request. While getting pt situated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 [facility] Sodium 140 135 - 145 mmol/L [facility] Potassium 4.5 3.5 - 5.0 mmol/L [facility] Comment: Please note: ??Patients with WBC >100,000 may have falsely elevated Potassium levels. ??For accurate Potassium quantification in these patients send serum separator tube (gold top) for subsequent determinations. ??Contact the Clinical Chemistry Laboratory if there are any questions. Chloride 106 98 - 107 mmol/L [facility] Carbon Dioxide 23 22 - 31 mmol/L [facility] Anion Gap 11 5 - 15 mmol/L [facility] Calcium 9.1 8.5 - 10.5 mg/dL [facility] Protein, Total 7.7 6.1 - 8.0 gm/dL [facility] Albumin 4.2 3.2 - 5.2 gm/dL [facility] Aspartate Aminotransferase 53(H) 0 - 39 unit/L [facility] Alanine Aminotransferase 73(H) 0 - 55 unit/L [facility] Alkaline Phosphatase 120 40 - 130 unit/L [facility] Bilirubin, Total 0.4 0.2 - 1.3 mg/dL [facility] Est Glomerular Filtration Rate 76 >=60 mL/min/1. 73 m?? [facility] Comment: The eGFR was calculated using the CKD-EPI equation. As with all creatinine based estimates of kidney function, eGFR values calculated with the CKD-EPI equation are not accurate in patients with acute kidney failure, extremes of body mass or the acutely ill. http://[email or web address] eGFR 88 >=60 mL/min/1. 73 m?? [facility] Comment: The eGFR was calculated using the CKD-EPI equation. As with all creatinine based estimates of kidney function, eGFR values calculated with the CKD-EPI equation are not accurate in patients with acute kidney failure, extremes of body mass or the acutely ill. [email or web address] Blood specimen (specimen) 03/24/2019 2:01 PM EST 03/24/2019 2:15 PM EST Narrative Resulting Agency Comment Spec In Lab Delaney Escamilla REINSURANCE CLERK CHEMISTRY ORDERA BLES [facility] [place] [address] * TSH Newell (03/23/2019 7:30 PM EST) Thyroid Stimulating Hormone 2.51 0.27 - 4.20 mcIU/mL [facility] Blood specimen (specimen) Venous Draw / Unknown 03/23/2019 7:30 PM EST 03/23/2019 7:58 PM EST Narrative Resulting Agency Comment Spec In Lab Sandy Durbin MD CHEMISTRY ORDERAB LES Performing Organization Address City/[facility]/ZIP Co de Phone Number [facility] [place] [address] * Vitamin B12 (03/23/2019 7:30 PM EST) [facility] Vitamin B12 322 232 - 1,245 pg/mL [facility] Blood specimen (specimen) Venous Draw / Unknown 03/23/2019 7:30 PM EST 03/23/2019 7:58 PM EST Narrative Resulting Agency Comment Spec In Lab Sandy Durbin MD CHEMISTRY ORDERAB LES Performing Organization Address [facility] Co de Phone Number [facility] [place] [address] * Scan, Peripheral Blood (03/23/2019 7:30 PM EST) [facility] Plat estimate Normal [facility] RBC Morphology Normal [facility] Atypical Lymph Moderate [facility] Blood specimen (specimen) 03/23/2019 7:30 PM EST 03/23/2019 7:40 PM EST Narrative Resulting Agency Comment Spec In Lab Susan Johnson APRN HEMATOLOGY ORDERABLE S Performing Organization Address City/[facility] Co de Phone Number [facility] [place] [address] * Bilirubin, Direct (03/23/2019 7:30 PM EST) [facility] Bilirubin, Direct 0.1 0.0 - 0.3 mg/dL [facility] Blood specimen (specimen) 03/23/2019 7:30 PM EST 03/23/2019 7:40 PM EST Narrative Resulting Agency Comment Spec In Lab Susan Johnson APRN CHEMISTRY ORDERABLES [facility] [place] [address] * (ABNORMAL) Differential, Automated (03/23/2019 7:30 PM EST) Neutrophil % 27.1 % [facility] Neutrophil Absolute 2.48 1.70 - 6.10 x10(3)/ L [facility] Lymph % 63.8 % [facility] Lymphocytes Abs 5.8(H) 0.9 - 3.2 x10(3)/mc L [facility] Monocyte % 6.0 % [facility] Monocyte Abs 0.6 0.3 - 0.9 x10(3)/ L [facility] Eos % 1.7 % [facility] Eosinophils Abs 0.2 0.0 - 0.4 x10(3)/[facility] Basophil % 1.2 % [facility] Baso Absolute 0.1 0.0 - 0.1 x10(3)/mc L [facility] Immature Gran % 0.20 % [facility] Comment: Immature granulocytes(IG's)percentage and absolute count will include metamyelocytes, myelocytes, and promyelocytes. Blood smears from CBCs yielding IG's will be scanned manually for concordance. If this scan disagrees with the automated IG or if promyelocytes are noted, a manual differential will be performed. Immature Gran Absolute 0.02 0.00 - 0.04 x10(3)/mc L [facility] Blood specimen (specimen) 03/23/2019 7:30 PM EST 03/23/2019 7:40 PM EST Narrative Resulting Agency Comment Spec In Lab Susan B Johnson REINSURANCE CLERK HEMATOLOGY ORDERABLE S [facility] [place] [address] * (ABNORMAL) Hemogram (03/23/2019 7:30 PM EST) [facility] White Blood Cell 9.2 4.0 - 9.5 x10(3)/ L [facility] Red Blood Cell 4.92 4.58 - 5.54 x10(6)/[facility]ORY Hemoglobin 15.4 13.7 - 16.5 gm/dL [facility] Hematocrit 46.4 40.5 - 48.5 % [facility] Mean Cell Volume 94.3(H) 82.9 - 93.1 fL [facility] Mean Cell Hemoglobin 31.3 27.5 - 32.1 pg [facility] Mean Cell Hemoglobin Concentration 33.2 32.0 - 35.7 gm/dL [facility] Platelet 335 145 - 357 x10(3)/ L [facility] RDW Standard Deviation 44.6 36.0 - 45.0 [facility] RDW coefficient of variation 13.0 11.4 - 13.8 % [facility] Mean Platelet Volume 8.8 7.6 - 12.9 [facility] NRBC% auto 0.0 % [facility] NRBC Absolute 0.000 0.000 - 0.000 x10(3)/[facility] Blood specimen (specimen) 03/23/2019 7:30 PM EST 03/23/2019 7:40 PM EST Narrative Resulting Agency Comment Spec In Lab Susan Johnson APRN HEMATOLOGY ORDERABLE S [facility] [place] [address] * (ABNORMAL) Gabapentin level (03/23/2019 7:30 PM EST) Pathologist [facility] Gabapentin Lvl (JUNE) <0.5(L) 2.0 - 20.0 mcg/mL [facility] Comment: ADDITIONAL INFORMATION This test was developed and its performance characteristics determined by [facility] in a manner consistent with CLIA requirements. This test has not been cleared or approved by the U.S. Food and Drug Administration. Test Performed by: [facility] [employer] [place] [address] Coil Builder: Jackson Kaplan M.D. Ph.D.; CLIA# [id number] Blood specimen (specimen) 03/23/2019 7:30 PM EST 03/24/2019 8:55 AM EST Narrative Resulting Agency Comment Spec In Lab Susan Johnson APRN LAB SEND OUT ORDERAB LES Performing Organization Address City/State/[facility] Co de Phone Number [facility] [address] * Topiramate level (03/23/2019 7:30 PM EST) Topiramate Lvl (JUNE) <1.0 mcg/mL [facility] Comment: REFERENCE VALUE Reference values depend on clinical use: Anticonvulsant: 5.0-20.0 mcg/mL Psychiatric: 2.0-8.0 mcg/mL ADDITIONAL INFORMATION This test was developed and its performance characteristics determined by [facility] in a manner consistent with CLIA requirements. This test has not been cleared or approved by the U.S. Food and Drug Administration. Test Performed by: [facility] [employer] [place] [address] Coil Builder: Jackson Kaplan M.D. Ph.D.; CLIA# [id number] Blood specimen (specimen) 03/23/2019 7:30 PM EST 03/24/2019 8:55 AM EST Narrative Resulting Agency Comment Spec In Lab Susan Johnson APRN LAB SEND OUT ORDERAB LES Performing Organization Address City/[facility]/ZIP Co de Phone Number [facility] [address] * (ABNORMAL) Carbamazepine level, total (03/23/2019 7:30 PM EST) Carbamazepine 5.6(L) 8.0 - 12.0 mg/L [facility] Comment: Therapeutic range: ??8-12 mg/L Toxic: ??> 12 mg/L Blood specimen (specimen) 03/23/2019 7:30 PM EST 03/23/2019 7:40 PM EST Narrative Resulting Agency Comment Spec In Lab Susan Halima Johnson APRN CHEMISTRY ORDERABLES Performing Organization Address [facility] Co de Phone Number [facility] [address] * (ABNORMAL) Comprehensive metabolic panel (non-fasting) (03/23/2019 7:30 PM EST) Glucose 100 65 - 199 mg/dL [facility] Comment:Diabetes: >=200 mg/d L plus symptoms Blood Urea Nitrogen 16 10 - 20 mg/dL [facility] Creatinine 0.98 0.80 - 1.50 mg/dL [facility] [...] questions. Chloride 106 98 - 107 mmol/L [facility] Carbon Dioxide 20(L) 22 - 31 mmol/L [facility] Anion Gap 12 5 - 15 mmol/L [facility] Calcium 9.0 8.5 - 10.5 mg/dL [facility] Protein, Total 7.9 6.1 - 8.0 gm/dL [facility] Albumin 4.5 3.2 - 5.2 gm/dL [facility] Aspartate Aminotransferase 54(H) 0 - 39 unit/L [facility] Alanine Aminotransferase 73(H) 0 - 55 unit/L [facility] Alkaline Phosphatase 119 40 - 130 unit/L [facility] Bilirubin, Total 0.4 0.2 - 1.3 mg/dL [facility] Est Glomerular Filtration Rate 92 >=60 mL/min/1. 73 m?? [facility] Comment: The eGFR was calculated using the CKD-EPI equation. As with all creatinine based estimates of kidney function, eGFR values calculated with the CKD-EPI equation are not accurate in patients with acute kidney failure, extremes of body mass or the acutely ill. http://[email or web address] eGFR 107 >=60 mL/min/1. 73 m?? [facility] Comment: The eGFR was calculated using the CKD-EPI equation. As with all creatinine based estimates of kidney function, eGFR values calculated with the CKD-EPI equation are not accurate in patients with acute kidney failure, extremes of body mass or the acutely ill. [email or web address] Blood specimen (specimen) 03/23/2019 7:30 PM EST 03/23/2019 7:40 PM EST Narrative Resulting Agency Comment Spec In Lab Susan Johnson APRN CHEMISTRY ORDERABLES [facility] [place] [address] * EKG 12 Lead (03/23/2019 4:17 PM EST) Ventricular rate 78 BPM MUSE SYSTEM Atrial Rate 78 BPM MUSE SYSTEM P-R Interval 120 ms MUSE SYSTEM QRS Duration 80 ms MUSE SYSTEM Q-T Interval 394 ms MUSE SYSTEM QTC Calculated (Bezet) 449 ms MUSE SYSTEM Calculated P [place] 39 degrees MUSE SYSTEM Calculated R [place] 16 degrees MUSE SYSTEM Calculated T [place] 26 degrees MUSE SYSTEM INTERPRETATION Normal sinus rhythm Normal ECG When compared with ECG of 15-JAN-2017 01:58, No significant change was found Confirmed by MD Oneill Daniel ([id number]) on 03/25/2019 1:43:42 AM MUSE SYSTEM 03/23/2019 4:17 PM EST 03/25/2019 1:43 AM EST Susan Rossijerica DE JESUS ECG ORDERABLES MUSE SYSTEM documented in this encounter Visit Diagnoses Diagnosis Seizures Other convulsions Seizures Other convulsions documented in this encounter Admitting Diagnoses Diagnosis Seizures Other convulsions documented in this encounter Administered Medications Inactive Administered Medications - up to 3 most recent administrations Medication Order MAR Action Action Date Dose Rate Site amitriptyline (Elavil) tablet 25 mg 25 mg, Oral, NIGHTLY, First dose on Thu03/23/19 at 2100, Until Discontinued, Routine Given 03/27/2019 10:23 PM EST 25 mg Given 03/26/2019 8:58 PM EST 25 mg Given 03/25/2019 10:49 PM EST 25 mg enoxaparin (LOVENOX) injection 40 mg 40 mg, Subcutaneous, NIGHTLY, First dose on Thu03/23/19 at 2100, Until Discontinued, Routine Given 03/27/2019 10:23 PM EST 40 mg Given 03/26/2019 8:58 PM EST 40 mg Given 03/25/2019 10:50 PM EST 40 mg gabapentin (Neurontin) capsule 100 mg 100 mg, Oral, EVERY MORNING, First dose on Thu03/24/19 at 0700, Until Discontinued, Routine Given 03/25/2019 7:38 AM EST 100 mg gabapentin (Neurontin) capsule 100 mg 100 mg, Oral, ONCE, 1 dose, On Thu03/24/19 at 1200, Routine Given 03/24/2019 11:47 AM EST 100 mg gabapentin (Neurontin) capsule 200 mg 200 mg, Oral, NIGHTLY, First dose on Thu03/23/19 at 2100, Until Discontinued, Routine Given 03/24/2019 10:0 2 PM EST 200 mg Given 03/23/2019 8:14 PM EST 200 mg gemfibrozil (Lopid) tablet 600 mg 600 mg, Oral, 2 TIMES DAILY BEFORE MEALS, First dose on Thu03/23/19 at 1630, Until Discontinued, Routine Given 03/28/2019 8:28 AM EST 600 mg Given 03/27/2019 4:53 PM EST 600 mg Given 03/27/2019 8:41 AM EST 600 mg levothyroxine (Synthroid) tablet 25 mcg 25 mcg, Oral, DAILY, First dose on Thu03/23/19 at 1600, Until Discontinued, Routine Given 03/28/2019 8:28 AM EST 25 mcg Given 03/27/2019 8:43 AM EST 25 mcg Given 03/26/2019 7:58 AM EST 25 mcg metoprolol succinate XL (Toprol-XL) tablet 25 mg 25 mg, Oral, DAILY, First dose on Thu03/24/19 at 0900, Until Discontinued, DO NOT CRUSH OR OPEN, Routine Given 03/28/2019 8:28 AM EST 25 mg Given 03/27/2019 8:43 AM EST 25 mg Given 03/26/2019 7:58 AM EST 25 mg naproxen (Naprosyn) tablet 500 mg 500 mg, Oral, 2 TIMES DAILY PRN, Starting on Thu03/24/19 at 0848, Until Thu03/28/19 at 1623, Headaches, Take with food or milk, Routine Given 03/27/2019 4:52 PM EST 500 mg Given 03/24/2019 9:24 AM EST 500 mg sertraline (Zoloft) tablet 100 mg 100 mg, Oral, NIGHTLY, First dose on Thu03/23/19 at 2100, Until Discontinued, Routine Given 03/27/2019 10:2 3 PM EST 100 mg Given 03/26/2019 8:58 PM EST 100 mg Given 03/25/2019 10:49 PM EST 100 mg sodium chloride 0.9 % (flush) flush 5 mL 5 mL, Intravenous, 2 TIMES DAILY, First dose on Thu03/23/19 at 2100, Until Discontinued, Routine Given 03/28/2019 8:28 AM EST 5 mLs Given 03/27/2019 10:23 PM EST 10 mLs Given 03/27/2019 8:44 AM EST 5 mLs topiramate (Topamax) tablet 25 mg 25 mg, Oral, 2 TIMES DAILY, First dose on Thu03/23/19 at 2100, Until Discontinued, DO NOT SPLIT, CRUSH OR OPEN, Routine Given 03/24/2019 10:02 PM EST 25 mg Given 03/23/2019 8:14 PM EST 25 mg topiramate (Topamax) tablet 25 mg 25 mg, Oral, ONCE, 1 dose, On Sandra 03/24/19 at 1200, DO NOT SPLIT, CRUSH OR OPEN, Routine Given 03/24/2019 11:47 AM EST 25 mg documented in this encounter Active and Recently Administered Medications Times are shown in EST. Scheduled Medication Order 03/26/2019 03/27/2019 03/28/2019 amitriptyline (Elavil) tablet 25 mg 25 mg, Oral, NIGHTLY, First dose on Thu03/23/19 at 2100, Until Discontinued, Routine 2057 (Given - Provider: Gina Crystal RN) 2222 (Given - Provider: Dianelys Angel RN) enoxaparin (LOVENOX) injection 40 mg 40 mg, Subcutaneous, NIGHTLY, First dose on Thu03/23/19 at 2100, Until Discontinued, Routine 2057 (Given - Provider: Gina Crystal RN) 2222 (Given - Provider: Dianelys Angel RN) gemfibrozil (Lopid) tablet 600 mg 600 mg, Oral, 2 TIMES DAILY BEFORE MEALS, First dose on Thu03/23/19 at 1630, Until Discontinued, Routine 0748 (Given - Provider: Stefani Lewis RN)1759 (Given - Provider: Stefani Lewis RN) 0841 (Given - Provider: Deja Ashley RN)1653 (Given - Provider: Deja Ashley RN) 0828 (Given - Provider: Cici Paniagua RN) levothyroxine (Synthroid) tablet 25 mcg 25 mcg, Oral, DAILY, First dose on Thu03/23/19 at 1600, Until Discontinued, Routine 0758 (Given - Provider: Stefani Lewis RN)0900 (Canceled Entry - Provider: Stefani Lewis RN - Reason: See comment - Comment: see previous administration) 0843 (Given - Provider: Deja Ashley RN) 0828 (Given - Provider: Cici Paniagua, EDWARD) metoprolol succinate XL (Toprol-XL) tablet 25 mg 25 mg, Oral, DAILY, First dose on Thu03/24/19 at 0900, Until Discontinued, DO NOT CRUSH OR OPEN, Routine 0758 (Given - Provider: Stefani Lewis RN) 0843 (Given - Provider: Deja Ashley RN) 0828 (Given - Provider: Cici Paniagua, EDWARD) sertraline (Zoloft) tablet 100 mg 100 mg, Oral, NIGHTLY, First dose on Thu03/23/19 at 2100, Until Discontinued, Routine 2057 (Given - Provider: Gina Crystal, EDWARD) 2222 (Given - Provider: Dianelys Angel, RN) sodium chloride 0.9 % (flush) flush 5 mL 5 mL, Intravenous, 2 TIMES DAILY, First dose on Thu03/23/19 at 2100, Until Discontinued, Routine 08 (Given - Provider: Stefani Lewis, EDWARD)2104 (Given - Provider: Gina Crystal, EDWARD) 0844 (Given - Provider: Deja Ashley RN)2222 (Given - Provider: Dianelys Angel, EDWARD) 08 (Given - Provider: Cici Paniagua, EDWARD) PRN Medication Order 03/26/2019 03/27/2019 03/28/2019 lidocaine (XYLOCAINE) 10 mg/mL (1 %) injection 3 mg 3 mg (0.3 mL), Subcutaneous, ONCE PRN, 1 dose, Starting on Thu03/23/19 at 1530, Until Thu03/28/19 at 1623, for discomfort with PIV insertion, Routine naproxen (Naprosyn) tablet 500 mg 500 mg, Oral, 2 TIMES DAILY PRN, Starting on Thu03/24/19 at 0848, Until Thu03/28/19 at 1623, Headaches, Take with food or milk, Routine 165 (Given - Provider: Marquis Ashley RN) sodium chloride 0.9 % (flush) flush 5-20 mL 5-20 mL, Intravenous, EVERY 1 MIN PRN, Starting on Thu03/23/19 at 1530, Until Thu03/28/19 at 1623, flush, Flush pertains to all indwelling lines. Flush per protocol found in the job aid using the link provided on this medication record., Routine documented in this encounter Care Teams Second Operator Relationship Specialty Start Date End Date Rosario Varela APRN [address] [place] [address] PCP - General Family Medicine 02/03/18 09/19/20 documented as of this encounter
--- OUTSIDE RECORDS SUMMARY | 2024-02-29 15:50 | XMS_ITS | Encounter Summary ---
Author Organization [facility] [place] [address] Care Team Providers Care Functional Architect Name Role Phone Rosario Varela APRN Primary Care Provider [phone] Encounter Details Date Type Department Care Team (Late st Contact Info) Description 01/16/2019 Ancillary Procedure Radiology Library at [facility] [place] [address] Andrew Diaz MD Social History Tobacco Use Types Packs/Day [...] Diagnosis Comments FILM LIBRARY STORAGE ONLY DX UPPER EXTREMITY Routine 01/16/2019 12:00 AM EST documented in this encounter Results * Film Library- Storage Only DX Upper Extremity (01/16/2019 12:00 AM EST) Narrative [facility] - 01/21/2019 12:20 PM EST This exam is auto-finalizing. It's purpose is for storage only. Andrew Diaz MD IM FILM LIBRARY ORD ERABLES [place], [place] documented in this encounter Visit Diagnoses Not on filedocumented in this encounter Care Teams Functional Architect Relationship Specialty Start Date End Date Rosario Varela APRN [address] [place] [address] PCP - General Family Medicine 02/03/18 09/19/20 documented as of this encounter
--- OUTSIDE RECORDS SUMMARY | 2024-02-29 15:50 | XMS_ITS | Encounter Summary ---
Author Organization [facility] [place] [address] Care Team Providers Care Director Of Elementary Education Name Role Phone Rosario Varela APRN Primary Care Provider [phone] Encounter Details Date Type Department Care Team (Late st Contact Info) Description 01/18/2019 Ancillary Procedure Radiology Library at [facility] [place] [address] Andrew Diaz MD Social History Tobacco Use [...] LIBRARY STORAGE ONLY DX UPPER EXTREMITY Routine 01/18/2019 12:00 AM EST documented in this encounter Results * Film Library- Storage Only DX Upper Extremity (01/18/2019 12:00 AM EST) Narrative [facility] - 01/21/2019 12:21 PM EST This exam is auto-finalizing. It's purpose is for storage only. Andrew Diaz MD IM FILM LIBRARY ORD ERABLES [place], [place] documented in this encounter Visit Diagnoses Not on filedocumented in this encounter Care Teams Director Of Elementary Education Relationship Specialty Start Date End Date Rosario Varela APRN [address] [place] [address] PCP - General Family Medicine 02/03/18 09/19/20 documented as of this encounter
--- OUTSIDE RECORDS SUMMARY | 2024-02-29 15:50 | XMS_ITS | Encounter Summary ---
Author Organization [facility] [place] [address] Care Team Providers Care Hotel Server Name Role Phone Rosario Varela APRN Primary Care Provider [phone] Encounter Details Date Type Department Care Team (Late st Contact Info) Description 09/02/2019 Refill Neurology at [facility] [address] [place] [id number] Sonia Dey MD Chronic migraine without aura without status [...] migrainosus documented in this encounter Care Teams Hotel Server Relationship Specialty Start Date End Date Rosario Varela APRN [address] [place], [place] [address] PCP - General Family Medicine 02/03/18 09/19/20 documented as of this encounter
--- OUTSIDE RECORDS SUMMARY | 2024-02-29 15:50 | XMS_ITS | Encounter Summary ---
Author Organization [place] [address] Care Team Providers Care Home Designer Name Role Phone Rosario Varela APRN Primary Care Provider [phone] Encounter Details Date Type Department Care Team (Late st Contact Info) Description 11/29/2018 Ancillary Procedure Radiology Library [place] [address] Sofy Maya MD Social History Tobacco Use [...] FILM LIBRARY STORAGE ONLY CT HEAD Routine 11/29/2018 12:00 AM EDT documented in this encounter Results * Film Library- Storage Only CT Head (11/29/2018 12:00 AM EDT) Narrative [facility] - 01/16/2019 1:38 PM EST This exam is auto-finalizing. It's purpose is for storage only. Sofy Maya MD [facility] FILM LIBRARY ORD ERABLES [place], [place] documented in this encounter Visit Diagnoses Not on filedocumented in this encounter Care Teams Home Designer Relationship Specialty Start Date End Date Rosario Varela APRN [address] [place] [address] PCP - General Family Medicine 02/03/18 09/19/20 documented as of this encounter
--- OUTSIDE RECORDS SUMMARY | 2024-02-29 15:50 | XMS_ITS | Encounter Summary ---
Author Organization [facility] Address [facility] [place] [address] Care Team Providers Care Director Employee Safety And Health Name Role Phone Rosario Varela APRN Primary Care Provider [phone] Reason for Visit * Consultation (Routine) - Closed Specialty Diagnoses / Procedures Referred By Mansi cooley Referred To Contact Neurology Diagnoses EPILEPSY Rosario Varela APRN [address] [place] [address] [facility] [address] [place] [address] Referral ID Status Reason Start Date Expiration Date V isits Requested Visits Authorized [id number] Closed Consult, Test & Treat Connection Center PCP Updated and/or Approved 12/14/2018 12/14/2019 1 1 Encounter Details Date Type Department Care Team (Late st Contact Info) Description 03/17/2019 8:30 AM EST [place] [address] Farhan Wilder MD [facility] [place] [address] Gee Leach MD Seizure Social History Tobacco Use Types Packs/Day Years [...] Sign Reading Time Taken Comments Blood Pressure 112/75 03/17/2019 8:24 AM EST Pulse 94 03/17/2019 8:24 AM EST Temperature - - Respiratory Rate - - Oxygen Saturation - - Inhaled Oxygen Concentration - - Weight 76.9 kg (169 lb 9.6 oz) 03/17/19 8:24 AM EST With shoes Height 167.6 cm (5' 6) 03/17/2019 8:24 AM EST Reported Body Mass Index 27.37 03/17/2019 8:24 AM EST documented in this encounter Progress Notes * Gee Leach MD - 03/17/2019 8:30 AM EST Patient Name: Chapin Costa PCP :Rosario Varela, CONVERTER OPERATOR Date of Visit :03/17/19 Chief Complaint: events concerning for seizures History of presenting illness: 48 yo M with 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 He was seen in ER at [facility] in for a reported seizure and had collapsed ventricles on the CTH suspected to be related to shunt malfunction but shuntogram was unremarkable. He also later reported x3 sz on02/04/19 (whole body shaking 30sec, waking up in between). He reports he had epilepsy since childhood with absence seizures then they went away for about 10 years and now they are back. He is on TPM and GBP for headache and reports the he was started on CMZ many years ago for seizure. Event type # 1 Semiology: absence: blank [...] weeks Triggers: unknown Diurnal variation: only day Event type # 2 Semiology: partials: grabbed his 's leg hard (sat next to him) then started twitching/tremor in hands and less responsive Aura: none Postictal: tired Onset: Only 2 events, Within few days over the past 2 weeks Duration: About 30 min Triggers: unknown Diurnal variation: day Current antiepileptic medications: TPM 25mg bid, GBP 100mg am/200mg hs, CMZ 600mg am/400mg pm Previous antiepileptic medications: TPM, CBZ, GBP Risk factors for epilepsy: There is no history of complications or developmental delay There is no history of stroke, meningitis or encephalitis. There is no history of febrile seizures. 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 Denies ETOH, smoking, recreational or illict drug use. Previous work up: # Brain imaging: bMRI 03/2018: IMPRESSION 1. No acute disease. 2. [...] craniocervical junction consistent with severe aqueductal stenosis. # EEG: no recent data # EMU admissions: none # Previous epilepsy-related neurosurgical interventions: none Past Medical History: Patient Active Problem List Diagnosis Code ??? S/P FUNDING COORDINATOR shunt Z98.2 ??? Persistent headaches R51 ??? Headache R51 ??? Neck pain M54.2 Past Surgical History: No past surgical history on file. Family History: No family history on file. Allergy: Allergies Allergen Reactions ??? Penicillins ??? Vancomycin Analogues ??? Vancomycin Hcl Medications: Current Outpatient Medications on File Prior to Visit Medication Sig Dispense Refill ??? metoprolol succinate [...] 200 mg HS 90 capsule 3 ??? carBAMazepine (TEGRETOL) 200 mg Tablet Take [...] Reported on 03/17/2019) 90 tablet 3 ??? cyclobenzaprine (FLEXERIL) 5 mg Tablet Take 1 tablet by mouth nightly. (Patient not taking: Reported on 03/17/2019) 30 tablet 0 No current facility-administered medications on file prior to visit. Review of systems: A 10-point review of system was checked and was negative except as mentioned above in the history of present illness. Physical Exam: Vitals: Temp: -- Heart Rate: -- Resp: -- BP: -- SpO2: -- Heart Rate from SpO2: -- Gen: awake, alert, NAD, cooperative with exam Neck: Supple HEENT: MMM CV: RRR Resp: Normal respiratory effort Abd: soft, nontender, nondistended Ext: No edema Neuro Exam: MS: Awake, alert, oriented to person, place, year, month No dysarthria, language fluent CN: PERRL, right eye exotropia, VFFTC Facial sensation intact to light touch No facial asymmetry Hearing intact to voice Palate elevates symmetrically, tongue protrudes midline SCM and trap strength intact Motor: Moves all extremities with full power Sensation: Intact to light touch throughout Reflexes: DTRs 2+ R, 2+ L Biceps 2+ R, 2+ L Brachioradialis 2+ R, 2+ L Patellar Coordination: Finger to nose intact, no dysmetria No tremor Gait: Normal stride, stance. Stable. Normal tandem gait Assessment / Plan: -DDX: PNES vs epileptic events. Based on history it appears to be more of nonepileptic etiology. Tobetter characterize the events we will plan for EMU admission for a long-term video monitoring inpatient. -continue home dose CMZ, TPM, GBP for now. check levels/CMP/LFT on admission -RTC with Dr. Leach after the EMU admission. Seen with Dr. Meño Leach MD 03/17/2019 8:27 AM Personal pager: [phone] Epilepsy Fellow Neurology (Staff) Addendum I saw and evaluated the patient. I have reviewed the resident's history, physical examination findings, assessment and plan during the visit and I agree with the details as written, unless otherwise specified as below. Farhan Wilder MD documented in this encounter Plan of Treatment Not on file documented as of this encounter Visit Diagnoses Diagnosis Seizure Other convulsions documented in this encounter Care Teams Director Employee Safety And Health Relationship Specialty Start Date End Date Rosario Varela APRN [address] [place] [address] PCP - General Family Medicine 02/03/18 09/19/20 documented as of this encounter
--- OUTSIDE RECORDS SUMMARY | 2024-02-29 15:50 | XMS_ITS | Encounter Summary ---
Author Organization [facility] Address [facility] [place] [address] Care Team Providers Care Excelsior Cutter Name Role Phone Rosario Varela APRN Primary Care Provider [phone] Encounter Details Date Type Department Care Team (Late st Contact Info) Description 12/07/2019 9:45 PM EDT Ancillary Procedure Radiology Library at [facility] [place] [place] [id number] Anoop Kenney MD [facility] [place] [address] Social History Tobacco Use Types Packs/Day Years [...] FILM LIBRARY STORAGE ONLY CT HEAD Routine 12/07/2019 9:42 PM EDT documented in this encounter Results * Film Library- Storage Only CT Head (12/07/2019 9:42 PM EDT) Narrative RAD - 12/07/2019 9:42 PM EDT This exam is auto-finalizing. It's purpose is for storage only. Anoop Kenney MD IMG FILM LIBRARY O RDERABLES [place], [place] documented in this encounter Visit Diagnoses Not on filedocumented in this encounter Care Teams Excelsior Cutter Relationship Specialty Start Date End Date Rosario Varela, LIZA [address] [place] [address] PCP - General Family Medicine 02/03/18 09/19/20 documented as of this encounter
--- OUTSIDE RECORDS SUMMARY | 2024-02-29 15:50 | XMS_ITS | Encounter Summary ---
[place] [address] Care Team Providers Care Equal Opportunity Director Name Role Phone Rosario Varela APRN Primary Care Provider [phone] Reason for Referral * Diagnostic Test (Routine) - Closed Specialty Diagnoses / Procedures Referred By Contac t Referred To Contact Radiology Diagnoses Cervicalgia S/P OPERATING MANAGER shunt Procedures NM CSF Shunt Patency Scan Sonia Escalona OVENS SUPERVISOR [facility] [place] [address] [place] [address] Referral ID Status Reason Start Date Expiration Date V isits Requested Visits Authorized [id number] Closed Specialty Service Requested 12/07/2019 06/06/2021 1 1 Reason for Visit * Diagnostic Test (Routine) - Closed Specialty Diagnoses / Procedures Referred By Contac t Referred To Contact Radiology Diagnoses Cervicalgia S/P OPERATING MANAGER shunt Procedures NM CSF Shunt Patency Scan Sonia Escalona APRN [facility] [place] [address] [place] [address] Referral ID Status Reason Start Date Expiration Date V isits Requested Visits Authorized [id number] Closed Specialty Service Requested 12/07/2019 06/06/2021 1 1 Encounter Details Date Type Department Care Team (Latest Contact Info) Description 01/17/2020 9:00 AM EST - 01/17/2020 9:47 AM EST Hospital Encounter Nuclear Medicine at [facility] [place] [address] Sonia Escalona OVENS SUPERVISOR [facility] [place] [address] Cervicalgia; S/P OPERATING MANAGER shunt Discharge Disposition: Home Social History Tobacco [...] the muscle every 14 days. 0 05/03/2018 loratadine (Claritin) 10 mg Tablet 10 mg [...] daily. 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 10 tablet 09/02/2019 09/24/2023 topiramate (TOPAMAX) 25 mg TabletIndications:Bench Press Operator susanna migraine without aura without status [...] Procedure Name Priority Date/Time Associated Diagnosis Comments NM CSF SHUNT PATENCY SCAN Routine 01/17/2020 1:31 PM EST Cervicalgia S/P OPERATING MANAGER shunt documented in this encounter Results * NM CSF Shunt Patency Scan (01/17/2020 1:31 PM EST) Anatomical Region Laterality Modality Nuclear Medicine Impressions 01/17/2020 2:38 PM EST Patent ventriculoperitoneal shunt. I have personally reviewed the image(s) and the resident's interpretation and agree with the findings, Olga Ge MD at 01/17/2020 2:38 PM Thank you for letting us participate in the care of this patient. For questions regarding this report, please contact the number below. ? Narrative 01/17/2020 2:38 PM EST EXAMINATION: NM CSF SHUNT PATENCY SCAN CLINICAL HISTORY: headaches, R sided neck pain. last shunt revision 2004. rule out shunt malfunction. TECHNIQUE: 0.6 mCi of indium (In-111) DTPA was injected into the port reservoir by the neurosurgery resident and planar images in the anterior and posterior projections were taken immediately and at 30 minutes, 60 minutes, and at 4 hours later. COMPARISON: Outside institution noncontrast head CT 12/07/2019, shunt series radiographs dated 01/14/2017 FINDINGS: Tracer activity is present in the tubing in the area of the calvarium and right neck on the immediate and 30 minute delayed images. Tracer activity is present within the abdomen at 60 minutes, in addition to faint residual activity in the ventriculoperitoneal shunt tubing, and diffuses throughout the abdomen on 4 hour delayed images. Normal activity in the urinary bladder seen on 4 hour delayed images. Procedure Note Olga Ge MD - 01/17/2020 EXAMINATION: NM CSF SHUNT PATENCY SCAN CLINICAL HISTORY: headaches, R sided neck pain. last shunt [id number]. rule out shunt malfunction. TECHNIQUE: 0.6 mCi of indium (In-111) DTPA was injected into the port reservoir bythe neurosurgery resident and planar images in the anterior and posterior projections were taken immediately and at 30 minutes, 60 minutes, and at 4hours later. COMPARISON: Outside institution noncontrast head CT 12/07/2019, shunt seriesradiographs dated 01/14/2017 FINDINGS: Tracer activity is present in the tubing in the area of the calvarium andright neck on the immediate and 30 minute delayed images. Tracer activity ispresent within the abdomen at 60 minutes, in addition to faint residual activityin the ventriculoperitoneal shunt tubing, and diffuses throughout the abdomen on4 hour delayed images. Normal activity in the urinary bladder seen on 4 hourdelayed images. IMPRESSION Patent ventriculoperitoneal shunt. I have personally reviewed the image(s) and the resident's interpretationand agree with the findings, Olga Ge MD at 01/17/2020 2:38 PM Thank you for letting us participate in the care of this patient. Forquestions regarding this report, please contact the number below. Sonia Escalona OVENS SUPERVISOR IMG NM ORDERABLES documented in this encounter Visit Diagnoses Diagnosis Cervicalgia S/P OPERATING MANAGER shunt Presence of cerebrospinal fluid drainage device documented in this encounter Administered Medications Inactive Administered Medications - up to 3 most recent administrations Medication Order MAR Action Action Date Dose Rate Site indium (IN-111) DTPA injection 0.6 mCi 0.6 mCi, Intravenous, ONCE PRN, 1 dose, Starting on Tu01/17/20 at 1020, Until Thu01/17/20 at 1020, Per Protocol, Routine Given 01/17/2020 10:20 AM EST 0.6 mCi documented in this encounter Care Teams Equal Opportunity Director Relationship Specialty Start Date End Date Rosario Varela APRN [address] [place] [address] PCP - General Family Medicine 02/03/18 09/19/20 documented as of this encounter
--- OUTSIDE RECORDS SUMMARY | 2024-02-29 15:50 | XMS_ITS | Encounter Summary ---
[place] [address] Care Team Providers Care Administrative Operations Coordinator Name Role Phone Rosario Varela APRN Primary Care Provider [phone] Reason for Referral * Consultation (Urgent) - Closed Specialty Diagnoses / Procedures Referred By Contac t Referred To Contact [facility] Diagnoses Cervicalgia Pain - Persistant neck pain/ ?MBB/ XR 12/06/19 & MRI 08/16/18 in [facility] Sonia Escalona APRN [facility] [place] [address] [facility] [place] [address] Referral ID Status Reason Start Date Expiration Date V isits Requested Visits Authorized [id number] Closed Consult, Test & Treat 12/07/2019 12/06/2020 1 1 * Diagnostic Test (Routine) - Closed Specialty Diagnoses / Procedures Referred By Contnu t Referred To Contact Radiology Diagnoses Cervicalgia S/P EXECUTIVE HOUSEKEEPER shunt Procedures NM CSF Shunt Patency Scan Sonia Escalona APRN [facility] [place] [address] [place] [address] Referral ID Status Reason Start Date Expiration Date V isits Requested Visits Authorized [id number] Closed Specialty Service Requested 12/07/2019 06/06/2021 1 1 * Consultation (Routine) - Specialty Diagnoses / Procedures Referred By Mansi cooley Referred To Contact Ophthalmology Diagnoses S/P EXECUTIVE HOUSEKEEPER shunt Sonia Escalona APRN [facility] [place] [address] Aziza Marie MD [facility] [place] [address] Referral ID Status Reason Start Date Expiration Date V isits Requested Visits Authorized [id number] Consult, Test & Treat 12/07/2019 12/06/2020 1 1 Reason for Visit * Reason Comments Follow-up shunt revision from ED visit Encounter Details Date Type Department Care Team (Late st Contact Info) Description 12/06/2019 2:00 PM EDT [place] [address] Sonia Escalona APRN [facility] [place] [address] Cervicalgia; S/P EXECUTIVE HOUSEKEEPER shunt Social History Tobacco Use Types Packs/Day [...] Sign Reading Time Taken Comments Blood Pressure 108/68 12/06/2019 2:05 PM EDT Pulse 84 12/06/2019 2:05 PM EDT Temperature - - Respiratory Rate - - Oxygen Saturation - - Inhaled Oxygen Concentration - - Weight - - Height - - Body Mass Index - - documented in this encounter Progress Notes * AnujaSonia fernandez Laurie, LIZA - 12/06/2019 2:00 PM EDT Name: Chapin Costa : 1970 PCP: Rosario Varela, LIZA REF: Rosario Varela Date of Service: 12/06/2019 History & Physical CHIEF COMPLAINT Follow up headaches ?Shunt malfunction. HISTORY OF PRESENT ILLNESS Chapin Costa is a 49 yo male with a history of a VPS for congenital aqueductal stenosis, pseudoseizures, depression, cervical stenosis and chronic headaches who returns to clinic with complaint of worsening headaches in the past 1-2 weeks. He recently presented to OSH with symptoms of feeling unsteady and headaches. A head CT and and shunt series were performed and unchanged from prior imaging (CTH 01/16/19 and XRSS 11/10/17). Codman Hakin valve remains set at 80. Today he describes worsening right sided neck pain and tenderness over shunt tract. His headaches improve at times but flair up intermittently. He states headaches are frontal in location. He reports pain with both neck extension and with upward gaze. He denies diplopia, tinnitus or blurred vision. He reports sensitivity to light and sound. He denies nausea, vomiting, fevers chills, dizziness or falls. He has not had a syncopal episode. He denies focal weakness or paraesthesias. He reports headaches and neck tenderness when lying on right side but headaches do not improve when he gets up. He also reports having memory problems and feeling more forgetful than usual. He reports some rightarm NT intermittently. He has had CTS surgery. He has not had formal ophthalmology exam in at least2 years. He was last seen in the [facility] clinic 02/10/19 by MARVA Uribe, during which he presented with headaches and concern for shunt malfunction. He was noted to have a dysconjugate gaze at that time and review of his imaging show[ed] essentially unchanged small slit like ventricles, an intact an well positioned shunt system, and an expected setting of 80 on his Codman Hakim programmable valve. His shunt was tapped and proximally functional with a low pressure measurement. Last revision was in [address] Wong when the valve was replaced. He was previously seen at headache clinic but did not find particularly helpful. ?? PAST MEDICAL HISTORY Patient Active Problem List Diagnosis Code ??? S/P EXECUTIVE HOUSEKEEPER shunt Z98.2 ??? Persistent headaches R51.9 ??? Headache R51.9 ??? Neck pain M54.2 ??? Seizures R56.9 Past Medical History: Diagnosis Date ??? Depression ??? Hearing loss r ear ??? Hyperlipidemia ??? Hypertension ??? Memory disorder ??? Seizures ??? Syncope and collapse ??? Vision abnormalities related to hydrocephalus History reviewed. No pertinent surgical history. ALLERGIES Allergies Allergen Reactions ??? Penicillins ??? Tegaderm [Transparent Dressings] Itching ??? Vancomycin Analogues ??? Vancomycin Hcl MEDICATIONS Current Outpatient Medications: ??? rizatriptan (MAXALT) 10 mg Tablet, Take 1 tablet by mouth as needed for Migraine., Disp: 10 tablet, Rfl: 0 ??? metoprolol succinate XL (Toprol-XL) 25 mg Tablet Sustained Release 24 hr, Take 25 mg by mouth daily., Disp: , Rfl: ??? topiramate (TOPAMAX) 25 mg Tablet, Take 1 tablet by mouth 2 times daily., Disp: 60 tablet, Rfl:5 ??? candesartan (ATACAND) 8 mg Tablet, Take 1 tablet by mouth daily., Disp: 90 tablet, Rfl: 3 ??? amitriptyline (ELAVIL) 25 mg Tablet, Take 50 mg by mouth nightly., Disp: , Rfl: ??? gabapentin (NEURONTIN) 100 mg Capsule, 100 mg AM/ 200 mg HS, Disp: 90 capsule, Rfl: 3 ??? levothyroxine [...] daily (before meals)., Disp: , Rfl: ??? benztropine (Cogentin) 0.5 [...] tablet 4 times daily., Disp: , Rfl: SOCIAL HISTORY Social History Socioeconomic History ??? [...] file Gets together: Not on file Attends mosque service: Not on file Active member of [...] Social History Narrative ??? Not on file FAMILY HISTORY History reviewed. No pertinent family history. REVIEW OF SYSTEMS General: Denies recent fever, chills, or weight changes. Eyes: Denies recent changes in vision. ENT: [...] recent changes in mentation, memory, or behavior. Reports forgetfulness. PHYSICAL EXAM BP 108/68 Pulse 84 Constitutional: Well developed, well nourished, in NAD. [...] tandem walk. Reflexes: DTRs 2+ symmetric throughout. Tenderness to palpation over shunt valve and tubing in right neck. No skin breakdown or sign of infection appreciated. ASSESSMENT & PLAN Chapin Costa is a 49 yo male with a history of a VPS for congenital aqueductal stenosis, pseudoseizures, depression, cervical stenosis and chronic headaches who returns to clinic with complaint of worsening headaches in the past 1-2 weeks. He recently presented to OSH with symptoms of feeling unsteady and headaches. A head CT and and shunt series were completed on 11/30 at [facility] showing no change from prior imaging (CTH [...] skin breakdown or sign of infection appreciated. When he presented in 2018 and shunt setting was adjusted upwards headaches seemed to be worse so wedecided against that today. I proposed moving forward with NM patency scan to evaluate patency of entire shunt system which Chapin and his mother are in favor of. We also discussed 2018 MRI findings of considerable degenerative changes in cervical spine including moderate to severe cervical stenosis at C67 as well as R>L. foraminal stenosis that may be contributing to neck pain and headaches. I suggest a referral to pain clinic to potentially try medial branch blocks. He has tried PT in the past without much benefit. Plan: Cervical Flex extension today NM Patency Scan Referral to ophthalmology Referral to Pain clinic for persistent neck pain Sonia Escalona APRN documented in this encounter Plan of Treatment Scheduled Referrals Name Type Priority Associated Diagnoses Order Schedule Referral to Ophthalmology Outpatient Referral Routine S/P EXECUTIVE HOUSEKEEPER shunt Ordered: 12/07/2019 Referral to Pain Management Outpatient Referral Routine Cervicalgia Ordered: 12/07/2019 documented as of this encounter Results * NM CSF Shunt [...] headaches, R sided neck pain. last shunt [id number]. rule out shunt malfunction. TECHNIQUE: 0.6 mCi [...] please contact the number below. Sonia Escalona SHEAR SETTER IMG NM ORDERABLES * XR Cervical Spine AP Flexion & [...] please contact the number below. ? Narrative 12/06/2019 4:07 PM EDT EXAMINATION: XR [...] No prevertebral soft tissue swelling. Partially imaged EXECUTIVE HOUSEKEEPER shunt. Procedure Note Emerita Bernstein MD - [...] osteophytes. No prevertebral soft tissue swelling.Partially imaged EXECUTIVE HOUSEKEEPER shunt. IMPRESSION Several millimeters dynamic instability at C4-C5 on a background ofdegenerative disc disease. I have personally reviewed the image(s) and the resident's interpretationand agree with the findings, Emerita Bernstein MD at 12/06/2019 4:07 PM Thank you for letting us participate in the care of this patient. Forquestions regarding this report, please contact the number below. Sonia Escalona APRN IMG DX ORDERABLES documented in this encounter Visit Diagnoses Diagnosis Cervicalgia S/P EXECUTIVE HOUSEKEEPER shunt Presence of cerebrospinal fluid drainage device Cervicalgia Cervicalgia S/P EXECUTIVE HOUSEKEEPER shunt Presence of cerebrospinal fluid drainage device documented in this encounter Care Teams Administrative Operations Coordinator Relationship Specialty Start Date End Date Rosario Varela APRN [address] [place] [address] PCP - General Family Medicine 02/03/18 09/19/20 documented as of this encounter
--- OUTSIDE RECORDS SUMMARY | 2024-02-29 15:50 | XMS_ITS | Encounter Summary ---
[facility] Organization [facility] [place] [address] Care Team Providers Care Global Ceo Name Role Phone Rosario Varela APRN Primary Care Provider [phone] [phone] Encounter Details Date Type Department Care Team (Late st Contact Info) Description 12/02/2019 [place] [address] Rhoda Zapata Social History Tobacco Use Types [...] * Telephone Encounter - Rhoda Zapata - 12/02/2019 8:28 AM EDT Scheduled w [facility] d/t availability [per Dr. Ma] and confirmed w facility [hospital] ~~~~~~~~~~~~~~~~~~~~~~~~~~~~~~~~~~~~~~~~~~~~~~~~~~~~~~~~~~~~ Diane Gann MD Sent: Sandra December 01, 2019 10:55 PM To: P [facility] Neurosurgery Mary Esther ?? Message Hi, Can we please have Ever see Wilbert in clinic as soon as possible? Workup for shunt functioning in thesetting of headaches. ThanksDiane ?? 12/01/19 10:54 PM Note Updated telephone numbers: ?? Patient, mobile: [phone] Patient's mother, mobile: [phone] Facility of residence: [phone] ?? Diane Gann MD documented in this encounter Plan of Treatment Not on file documented as of this encounter Visit Diagnoses Not on filedocumented in this encounter Care Teams Global Ceo Relationship Specialty Start Date End Date Rosario Varela APRN [address] [place] [address] PCP - General Family Medicine 02/03/18 09/19/20 documented as of this encounter
--- OUTSIDE RECORDS SUMMARY | 2024-02-29 15:50 | XMS_ITS | Encounter Summary ---
[place] [address] Care Team Providers Care Landscape Architect Name Role Phone Rosario Varela APRN Primary Care Provider [phone] Reason for Visit * Reason Comments Procedure Encounter Details Date Type Department Care Team (Latest Contact Info) Description 03/17/2019 12:17 PM EST - 03/17/2019 11:59 PM EST Hospital [place] [id number] Seizures Discharge Disposition: Home Social History Tobacco [...] meals). 05/24/2022 documented as of this encounter Procedure Notes * Lul Leyva MD - 03/17/2019 1:28 PM ESTAssociated Order(s): EEG AWAKE, ASLEEP, DROWSY Pre-Procedure Diagnose(s): Seizures [facility] Department of Neurology Outpatient EEG Report Name of the Patient: Chapin Costa Date of : 1970 Date of Service: 03/17/2019 Referring physician: Autumn BRIEF HISTORY: Chapin Costa is a 48 [...] taking: Reported on 03/17/2019) 30 tablet 0 ??? carBAMazepine (TEGRETOL) 200 [...] by mouth 2 times daily (before meals). No current facility-administered medications for this encounter. METHODS: A 21 channel digitized electroencephalogram was performed in the [facility] Clinical Neurophysiology Laboratory. The 10/20 international system of electrode placement was used and bipolar and referential electrode montages were recorded. In addition to EEG the patient was monitored for EKGand lateral/vertical eye movements. Video was recorded during the session. The duration of the recording was 25 minutes. FOUNDING PARTNER'S REPORT: Performed by: SR Patient was not sleep deprived. Sleep was attained. Photic stimulation was performed. Hyperventilation was performed. Effort was was not adequate. Movement and other artifact was not significant. Comments: None. ELECTROENCEPHALOGRAPHER'S REPORT: Background During the awake state with the eyes closed the background consisted of a normal amplitude, 10.5 Hzposterior reactive rhythm that attenuated appropriately with eye [...] in a patient with underlying generalized epilepsy. Noseizures or typical clinical events were captured. Bell Arias MD PGY-4 Neurology resident Pager #[phone] 03/17/2019 5:58 PM. Neurology Attending I have personally reviewed the EEG, and I agree with the details as written. The above report was formulated in discussion with me at the time of EEG reading, and I agree with it as documented. Lul Leyva MD [place] [address] Pager: [phone], #[phone] Email: [email or web address] CC: Rosario Varela APRN documented in this encounter Plan of Treatment Not on file documented as of this encounter Procedures Procedure Name Priority Date/Time Associated Diagnosis Comments ZEEG AWAKE, ASLEEP, DROWSY Routine 03/17/2019 1:28 PM EST Seizures documented in this encounter Results * EEG awake, asleep, drowsy, routine (03/17/2019 1:28 PM EST) Narrative Lul Leyva MD - 03/17/2019 1:28 PM Lul Roberts MD ? 03/19/2019 10:20 PM [facility] Department of Neurology Outpatient EEG Report Name [...] channel digitized electroencephalogram was performed in the [facility] Clinical Neurophysiology Laboratory. The 10/20 international system of electrode placement was used and bipolar and referential electrode montages were recorded. ??In addition to EEG the patient was monitored for EKG and lateral/vertical eye movements. Video was recorded during the session. The duration of the recording was 25 minutes. FOUNDING PARTNER'S REPORT: Performed by: SR Patient was not [...] Bell Arias MD PGY-4 Neurology resident Pager #[phone] 03/17/2019 5:58 PM. Neurology Attending I have personally reviewed the EEG, and I agree with the details as written. ?? The above report was formulated in discussion with me at the time of EEG reading, and I agree with it as documented. Lul Thadani, [place] [address] Pager: [phone], #[phone] Email: [email or web address] CC: Rosario Varela APRN Lul Leyva MD NEUROLOGY ORDERABLES documented in this encounter Visit Diagnoses Diagnosis Seizures Other convulsions documented in this encounter Care Teams Landscape Architect Relationship Specialty Start Date End Date Rosario Varela APRN [address] [place] [address] PCP - General Family Medicine 02/03/18 09/19/20 documented as of this encounter
--- OUTSIDE RECORDS SUMMARY | 2024-02-29 15:50 | XMS_ITS | Encounter Summary ---
Author Organization [facility] [place] [address] Care Team Providers Care Clinical Rehabilitation Aide Name Role Phone Rosario Varela APRN Primary Care Provider [phone] Encounter Details Date Type Department Care Team (Late st Contact Info) Description 12/01/2019 Telephone [place] [address] Diane Gann MD [facility] [place] [address] Social History Tobacco Use Types Packs/Day Years [...] encounter Miscellaneous Notes * Telephone Encounter - Diane Gann MD - 12/01/2019 10:52 PM EDT Updated telephone numbers: Patient, mobile: [phone] Patient's mother, mobile: [phone] Facility of residence: [phone] Diane Gann MD documented in this encounter Plan of Treatment Not on file documented as of this encounter Visit Diagnoses Not on filedocumented in this encounter Care Teams Clinical Rehabilitation Aide Relationship Specialty Start Date End Date Rosario Varela APRN [address] [place] [address] PCP - General Family Medicine 02/03/18 09/19/20 documented as of this encounter
--- OUTSIDE RECORDS SUMMARY | 2024-02-29 15:50 | XMS_ITS | Encounter Summary ---
[place] [address] Care Team Providers Care Magnetic Prospector Name Role Phone Rosario Varela APRN Primary Care Provider [phone] Encounter Details Date Type Department Care Team (Late st Contact Info) Description 02/04/2019 Telephone Neurology at [address] [phone] Sonia Dey MD Social History Tobacco Use Types Packs/Day [...] * Telephone Encounter - Madina Abdalla - 03/07/2019 6:06 PM EST Patient saw DPS on 02/10/19. Closing encounter. * Telephone Encounter - Sonia Dey MD - 02/04/2019 3:17 PM EST TELEPHONE NOTE Date of call: 02/04/2019 Time of call: 3:17 Caller: BENJIE - Dr. Melgoza - ED provider Reason for call: ?? Additional evaluation vs referrals Chapin Costa is 48 y.o. hydrocephalus, congenital aqueductal stenosis s/p shunting, epilepsy, headaches (seen in the headache clinic 07/2018) and now presenting with 3 seizure events at work c/o sx of shunt failure. He does have known hydrocephalus with a CHICKEN STUFFER shunt and 3 sz today at the grocery store. [place] his whole body shaking 30 seconds, waking up in between. This is the third evaluation in 3 weeks. There is concern that there needs to be an an adjustment . Patient was last seen for full evaluation 01/22/2017 by Cl Watson in and then by nursing to evaluate shunt after that time. CT head and shunt series are fine today per provider Patient is concerned - tegretol level is normal Assessment and Plan: Chapin Costa is 48 y.o. hydrocephalus, congenital aqueductal stenosis s/p shunting, epilepsy, headaches (seen in the headache clinic 07/2018) and now presenting with 3 seizure events at work c/o sx of shunt failure. Is unclear if the patient's symptoms here is experiencing is headache related, seizure events or infact is early shunt failure that we are not detecting on imaging. I think it is important that he follow-up with neurology. He also needs to follow-up with neurosurgery. He should be seen in neurosurgery clinic for repeat evaluation as well as consideration for epilepsy evaluation. Based on the documentation I have available it does not appear that he has had an epilepsy evaluation in the past. He is currently being evaluated in the headache clinic and being treated for chronic migraine withoutaura. - Neurosurgery and Epilepsy evaluation - Continue ALICEA f/u My assessment is based on the information provided to be verbally by the calling provider. I have not had direct communication with the patient and I have no personally examined this patient. AND The treating physician remains in control of the patient's care and treatment. documented in this encounter Plan of Treatment Not on file documented as of this encounter Visit Diagnoses Not on filedocumented in this encounter Care Teams Magnetic Prospector Relationship Specialty Start Date End Date Rosario Varela APRN [address] [place] [address] PCP - General Family Medicine 02/03/18 09/19/20 documented as of this encounter
--- OUTSIDE RECORDS SUMMARY | 2024-02-29 15:50 | XMS_ITS | Encounter Summary ---
Author Organization [facility] [place] [address] Care Team Providers Care Breast Surgeon Name Role Phone Rosario Varela APRN Primary Care Provider [phone] Reason for Referral * Consultation (Urgent) - Closed Specialty Diagnoses / Procedures Referred By Contac t Referred To Contact Neurosurgery Diagnoses Congenital hydrocephalus Continuous headache in setting or BAR ATTENDANT shunt- need eval and imaging recs Irvin New MD [facility] [place] [address] [facility] Neurosurgery [address] [place] [id number] Referral ID Status Reason Start Date Expiration Date V isits Requested Visits Authorized [id number] Closed Consult, Test & Treat 02/10/2019 02/10/2020 1 1 Encounter Details Date Type Department Care Team (Latest Contact Info) Description 02/10/2019 10:00 AM EST Office Visit Neurology at [facility] [address] [place] [address] Irvin New MD Green, Anthony L, MD Chronic migraine without aura without status migrainosus, not intractable; Congenital hydrocephalus Social History Tobacco Use Types [...] Time Taken Comments Blood Pressure 141/90 02/10/2019 9:27 AM EST Pulse 85 02/10/2019 9:27 AM EST Temperature - - Respiratory Rate - - Oxygen Saturation - - Inhaled Oxygen Concentration - - Weight - - Height - - Body Mass Index - - documented in this encounter Progress Notes * Irvin New MD - 02/10/2019 10:00 AM EST [facility] Headache Clinic Follow-up Patient Name: Chapin Costa Attending: Sundar Patient ID: Chapin Costa is a 48 y.o. male who follows at the [facility] Headache Clinic. Active Issues: Chronic Migraine without Aura Secondary Problems: Past Medical History: Diagnosis Date ??? Depression ??? Hearing loss r ear ??? Hyperlipidemia ??? Hypertension ??? Memory disorder ??? Seizures ??? Syncope and collapse ??? Vision abnormalities related to hydrocephalus Interval History: Since the last visit, the patient has been doing poorly- last visit was 8-12 ALICEA per month- we increased topamax- having daily headache. Last month has been having nearly daily headache- has stopped mountain dew daily- drinking crystal light often. Not usint any OTCs. Medications: Current Outpatient Medications on File Prior to Visit Medication Sig Dispense Refill ??? amitriptyline (ELAVIL) 25 mg Tablet Take 25 mg by mouth nightly. ??? topiramate (TOPAMAX) 50 mg Tablet Take 1 tablet by mouth 2 times daily. 60 tablet 5 ??? rizatriptan (MAXALT) 10 mg Tablet Take 1 tablet by mouth as needed for Migraine. 10 tablet 0 ??? gabapentin (NEURONTIN) 100 mg Capsule 100 [...] daily (before meals). No current facility-administered medications on file prior to visit. Physical Exam: Most Recent Vitals: 02/10/19926 BP: 141/90 Pulse: 85 Constitutional: Patient of apparent stated age, no acute distress HEENT: no occipital tenderness CV: RRR, S1, S2, no murmur Resp: CTAB Neuro: MS: Alert, oriented, clear language, no dysarthria, follows commands CN: PERRL, EOMI, no facial asymmetry, tongue is midline Motor: no pronator drift 5/5 strength throughout Reflexes: intact Coordination: intact finger to nose Gait: normal base and arm swing Labs: No results found for this or any previous visit (from the past 24 hour(s)). Diagnostic Tests and Imaging: Assessment and Plan: Chapin Costa is a 48 y.o. male with past medical history as outlined above Presenting with the chief complaint of headache for 30/30 days per month. Chronic Migraine without Aura Have a high concern for a shunt problem- has had many shunt revisions General Recommendations: - Keep a Headache diary - Labs:CBC, renal, CRP Needs to have head imaging- if MRI- needs to have shunt settings checked immediately after MRI - will need to see KATHY to decide on this imaging. Lifestyle Recommendations: - Work on sleep schedule, sleep hygeine - Daily exercise 30 minutes per day - keep hydrated For prevention: decrease topamax to 50mg daily Add candesartan 8mg daily For mild to moderate ALICEA Naproxen sodium 550mg BID PRN For severe ALICEA Rizatriptan 10mg- can use 2x in 24 hr- treat 2 days per week max ?? Future considerations: botox mabs Irvin New MD Headache Fellow [facility] Neurology Pager: [phone] Available by page 7am to 5pm After 5pm please page Neuro substation manager at Pager: [phone] * Jose Luis Kwok MD - 02/10/2019 10:00 AM EST Neurology Attending Note Chad Kwok MD (Pg [phone]) I certify that I have reviewed and discussed Chapin Costa on 02/10/[address] New, headache Fellow. I also saw the patient and reviewed his history and discussed the plan. The note reflects the patient's history of presentation, physical findings. The assessment and plan were formulated together in discussion and I have personally reviewed all relevant studies. Briefly this is a pleasant 48-year-old gentleman with a history of congenital aqueductal stenosis. He is BAR ATTENDANT shunt dependent and by his recollection has had 45 shunt revisions. He has a long history of headaches that do have a migraine phenotype. When he was last seen in October his topiramate wasincreased to 100 mg from 50 mg and there were no changes to his Elavil 25 mg gabapentin 100/200 mg and carbamazepine. He has stopped caffeine. Since October the patient reports there is been a steady worsening over time. He has transition from episodic headache to a daily and continuous headache.He feels there is pain over his shunt valve site. On 1 day there was some redness in the area. He feels that his current set of symptoms are reminiscent when he has had previous shunt malfunctions. He has not had any infectious symptoms. Given the current symptoms and temporal profile he is going to require repeat neuroimaging in the form of an MRI with and without gadolinium enhancement and likely review by his neurosurgeon to determine if CSF analysis is indicated. As he has a programmable shunt the MRI will have to be organized such that his shunt settings can be checked following the scan. Future decisions on treatment based on outcome of investigations. Follow-up in the Headache Clinic as per Dr. New documented in this encounter Miscellaneous Notes * Addendum Note - Eva Mcmillan - 02/10/2019 10:00 AM ESTAddended by: EVA MCMILLAN on: 02/10/2019 11:33 AM Modules accepted: Orders documented in this encounter Plan of Treatment Scheduled Referrals Name Type Priority Associated Diagnoses Orde r Schedule Referral to Neurosurgery Outpatient Referral Routine Congenital hydrocephalus Ordered: 02/10/2019 documented as of this encounter Procedures Procedure Name Priority Date/Time Associated Diagnosis Comments HC C-REACTIVE PROTEIN Routine 02/10/2019 11:25 AM EST Congenital hydrocephalus HEMOGRAM Routine 02/10/2019 11:25 AM EST Congenital hydrocephalus DIFFERENTIAL, AUTOMATED Routine 02/10/2019 11:25 AM EST Congenital hydrocephalus HC CBC,PLT & AUTO DIFF Routine 02/10/2019 11:25 AM EST Congenital hydrocephalus HC VENIPUNCTURE Routine 02/10/2019 11:25 AM EST Congenital hydrocephalus documented in this encounter Results * Differential, Automated (02/10/2019 11:25 AM EST) Neutrophil % 66.4 % [facility] Neutrophil Absolute 4.58 1.70 - 6.10 x10(3)/[facility] Lymph % 22.1 % [facility] Lymphocytes Abs 1.5 0.9 - 3.2 x10(3)/[facility] Monocyte % 8.3 % [facility] Monocyte Abs 0.6 0.3 - 0.9 x10(3)/[facility] Eos % 2.0 % [facility] Eosinophils Abs 0.1 0.0 - 0.4 x10(3)/[facility] Basophil % 0.9 % [facility] Baso Absolute 0.1 0.0 - 0.1 x10(3)/[facility] Immature Gran % 0.30 % [facility] Comment: Immature granulocytes(IG's)percentage and absolute count will include metamyelocytes, myelocytes, and promyelocytes. Blood smears from CBCs yielding IG's will be scanned manually for concordance. If this scan disagrees with the automated IG or if promyelocytes are noted, a manual differential will be performed. Immature Gran Absolute 0.02 0.00 - 0.04 x10(3)/[facility] Blood specimen (specimen) 02/10/2019 11:25 AM EST 02/10/2019 1:06 PM EST Narrative Resulting Agency Comment Spec In Lab Irvin New MD HEMATOLOGY ORDERABLE S [facility] [place] [address] * (ABNORMAL) Hemogram (02/10/2019 11:25 AM EST) White Blood Cell 6.9 4.0 - 9.5 x10(3)/[facility]ORAT[facility] Red Blood Cell 5.56(H) 4.58 - 5.54 x10(6)/[facility] Hemoglobin 17.2(H) 13.7 - 16.5 gm/dL [facility] Hematocrit 53.3(H) 40.5 - 48.5 % [facility] Mean Cell Volume 95.9(H) 82.9 - 93.1 [facility] Mean Cell Hemoglobin 30.9 27.5 - 32.[address] [facility] Mean Cell Hemoglobin Concentration 32.3 32.0 - 35.7 gm/dL [facility] Platelet 358(H) 145 - 357 x10(3)/[facility] RDW Standard Deviation 43.5 36.0 - 45.0 [facility] RDW coefficient of variation 12.2 11.4 - 13.8 % [facility] Mean Platelet Volume 9.8 7.6 - 12.9 [facility] NRBC% auto 0.0 % [facility] NRBC Absolute 0.000 0.000 - 0.000 x10(3)/[facility] Blood specimen (specimen) 02/10/2019 11:25 AM EST 02/10/2019 1:06 PM EST Narrative Resulting Agency Comment Spec In Lab Irvin New MD HEMATOLOGY ORDERABLE S [facility] [place] [address] * Basic Metabolic Panel (non-fasting) (02/10/2019 11:25 AM EST) Glucose 102 65 - 199 mg/dL [facility] Comment:Diabetes: >=200 mg/d L plus symptoms Blood Urea Nitrogen 17 10 - 20 mg/dL [facility] Creatinine 1.21 0.80 - 1.50 mg/dL [facility] Sodium 140 135 - 145 mmol/L [facility] Potassium 4.4 3.5 - 5.0 mmol/L [facility] Comment: Please note: ??Patients with WBC >100,000 may have falsely elevated Potassium levels. ??For accurate Potassium quantification in these patients send serum separator tube (gold top) for subsequent determinations. ??Contact the Clinical Chemistry Laboratory if there are any questions. Chloride 103 98 - 107 mmol/L [facility] Carbon Dioxide 25 22 - 31 mmol/L [facility] Anion Gap 12 5 - 15 mmol/L [facility] Calcium 9.4 8.5 - 10.5 mg/dL [facility] Est Glomerular Filtration Rate 71 >=60 mL/min/1. 73 m?? [facility] Comment: The eGFR was calculated using the CKD-EPI equation. As with all creatinine based estimates of kidney function, eGFR values calculated with the CKD-EPI equation are not accurate in patients with acute kidney failure, extremes of body mass or the acutely ill. http://[place]/[email or web address] eGFR 83 >=60 mL/min/1. 73 m?? [facility] Comment: The eGFR was calculated using the CKD-EPI equation. As with all creatinine based estimates of kidney function, eGFR values calculated with the CKD-EPI equation are not accurate in patients with acute kidney failure, extremes of body mass or the acutely ill. [email or web address] Blood specimen (specimen) 02/10/2019 11:25 AM EST 02/10/2019 1:08 PM EST Narrative Resulting Agency Comment Spec In Lab Irvin New MD CHEMISTRY ORDERABLES Performing Organization Address City/[facility]/ZIP Co de Phone Number [facility] [place] [address] * CRP, acute inflammation (02/10/2019 11:25 AM EST) C-Reactive Protein 2.3 <=4.9 mg/L [facility] Blood specimen (specimen) 02/10/2019 11:25 AM EST 02/10/2019 1:08 PM EST Narrative Resulting Agency Comment Spec In Lab Irvin New MD CHEMISTRY ORDERABLES Performing Organization Address [facility] Co de Phone Number [facility] [place] [address] documented in this encounter Visit Diagnoses Diagnosis Chronic migraine without aura without status migrainosus, not intractable Chronic migraine without aura, without mention of intractable migraine without mention of status migrainosus Congenital hydrocephalus documented in this encounter Care Teams Breast Surgeon Relationship Specialty Start Date End Date Rosario Varela APRN [address] [place] [address] PCP - General Family Medicine 02/03/18 09/19/20 documented as of this encounter
--- OUTSIDE RECORDS SUMMARY | 2024-02-29 15:50 | XMS_ITS | Encounter Summary ---
Author Organization [facility]ly [facility] [place] [address] Care Team Providers Care Planogrammer Name Role Phone Rosario Varela APRN Primary Care Provider [phone] [phone] Encounter Details Date Type Department Care Team (Late st Contact Info) Description 12/01/2019 [place] [address] Diane Gann MD [facility] [place] [address] Social History Tobacco Use Types Packs/Day Years [...] Encounter - Diane Gann MD - 12/01/2019 10:15 PM EDT NEUROSURGERY TELEPHONE NOTE - Consultation Patient Name: Chapin Costa Patient Age: 49 y.o. : 1970 Date: 12/01/2019 Outside Facility: [facility] Patient status, level of care: ED Calling Provider: Andrew Grant DO Please note: The information in this note was directly obtained via the calling provider. Received a call from the Transfer Center on 12/01/2019 concerning Chapin Costa, a 49 y.o. male with concerns for headache and possible shunt malfunction. In brief, this is a 49 yo male with a history of a VPS for congenital aqueductal stenosis, pseudoseizures, depression, and chronic headaches who presented to the OSH today with reports of worsening headache and dizziness concerning for a shunt malfunction. Per the calling provider, the patient has chronic headaches but after he took his triptan today and the pain did not improve, he got worried for shunt malfunction. He has also seemed to be more dizzy than usual and unsteady on his feet so he presented for evaluation. CTH and XRSS were performed and unchanged from prior imaging (CTH 01/16/19and XRSS 11/10/17). 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 There is a turn in the distal abdominal portion of the tubing, but this has been present for years. No new discontinuity. On exam, the patient is awake and alert in no distress. He is fully oriented with improved headacheafter morphine and tylenol that is not positional in nature. He has baseline R sided exotropia. Ultrasonic fundoscopic examination reveals equivocal papilledema, but no gross optic disc swelling. He is neuro intact but does appear somewhat more unsteady on his feet. 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 He was seen by the BIT team and referred for psychiatric care as an outpatient. He was last seen in the NSGY clinic 02/10/19 by MARVA Uribe, during which he presented with headaches and concern for shunt malfunction. He was noted to have a dysconjugate gaze at that time and review of his imaging show[ed] essentially unchanged small slit like ventricles, an intact an well positioned shunt system, and an expected setting of80 on his Codman Hakim programmable valve. His shunt was tapped and proximally functional with a low pressure measurement. He was recommended to follow-up in the headache clinic. Last revision was in [address] oWng when the valve was replaced. I discussed with the calling provider that this story does not immediately raise suspicion for a shunt malfunction especially in the setting of chronic headaches. His ventricles are stable in caliber(though the patient reports 47 shunt revision in his past, I can only see 2 operative reports last in 2004, there are no prior images to assess if his ventricles enlarged with malfunctions prior tothis). He has a stable ocular exam with possible gait unsteadiness and headaches. Though I cannot be certain there is no shunt malfunction, especially because I did not examine him, I do not believe he needs to be urgently transferred. We will plan to see him early next week for shunt evaluation. He knows to call us with concerning symptoms and to represent to the ED should things worsen. We will call him to establish a visit: [phone] (M) Diane Gann MD 12/01/2019 NSGY pager: [phone] Personal pager: [phone] documented in this encounter Plan of Treatment Not on file documented as of this encounter Visit Diagnoses Not on filedocumented in this encounter Care Teams Planogrammer Relationship Specialty Start Date End Date Rosario Varela APRN [address] [place] [address] PCP - General Family Medicine 02/03/18 09/19/20 documented as of this encounter
--- OUTSIDE RECORDS SUMMARY | 2024-02-29 15:50 | XMS_ITS | Encounter Summary ---
Author Organization [facility] [place] [address] Care Team Providers Care Solderer Assembler Name Role Phone Rosario Varela APRN Primary Care Provider [phone] [phone] Encounter Details Date Type Department Care Team (Late st Contact Info) Description 01/16/2019 [place] [address] Ovidio Anderson MD Social History Tobacco Use Types Packs/Day [...] encounter Miscellaneous Notes * Telephone Encounter - Ovidio Anderson MD - 01/16/2019 2:16 PM EST Called by Dr. Hicks regarding Mr. 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 A CT head was obtained which demonstrated collapsed ventricles and so the neurosurgery service was called. In comparison with a prior CT scan obtained in November there has been no change in the size of his ventricles. Per report he is at his neurological baseline. The neurology service has been consulted for evaluation of his seizure. I recommended obtaining a shunt series to evaluate for any discontinuity. The OSH provider agreed with the plan and will call back with any abnormalfindings or concerns. Ovidio Anderson MD documented in this encounter Plan of Treatment Not on file documented as of this encounter Visit Diagnoses Not on filedocumented in this encounter Care Teams Solderer Assembler Relationship Specialty Start Date End Date Rosario Varela APRN [address] [place] [address] PCP - General Family Medicine 02/03/18 09/19/20 documented as of this encounter
--- OUTSIDE RECORDS SUMMARY | 2024-02-29 15:50 | XMS_ITS | Encounter Summary ---
Author Organization [facility] [place] [address] Care Team Providers Care Electric Stove Installer Name Role Phone Rosario Varela APRN Primary Care Provider [phone] [phone] Encounter Details Date Type Department Care Team (Late st Contact Info) Description 12/01/2019 10:05 PM EDT Ancillary Procedure Radiology Library at [facility] [place] [phone] Anoop Almanza MD Social History Tobacco Use Types Packs/Day [...] Comments FILM LIBRARY STORAGE ONLY CT HEAD AND SPINE Routine 12/01/2019 9:58 PM EDT documented in this encounter Results * Film Library- Storage Only CT Head And Spine (12/01/2019 9:58 PM EDT) Narrative [facility] - 12/01/2019 9:58 PM EDT This exam is auto-finalizing. It's purpose is for storage only. Anoop Almanza MD IM FILM LIBRARY ORD ERABLES [place], [place] documented in this encounter Visit Diagnoses Not on filedocumented in this encounter Care Teams Electric Stove Installer Relationship Specialty Start Date End Date Rosario Varela APRN [address] [place] [address] PCP - General Family Medicine 02/03/18 09/19/20 documented as of this encounter
--- OUTSIDE RECORDS SUMMARY | 2024-02-29 15:50 | XMS_ITS | Encounter Summary ---
[place] [address] Care Team Providers Care Legal Clerk Name Role Phone Rosario Varela APRN Primary Care Provider [phone] Encounter Details Date Type Department Care Team (Late st Contact Info) Description 12/10/2018 Telephone Neurology at [address] [id number] Irvin New MD Social History Tobacco Use Types Packs/Day [...] encounter Miscellaneous Notes * Telephone Encounter - Desiree Mac RN - 12/10/2018 8:38 AM EDT Received a call from Valerie at [facility]. [phone]. Call was disconnected. I returned the call and spoke with Rosario Varela APRN, provider for Chapin. Rosario asked if tegretol Rx had been addressed or refilled here at [facility] during Chapin's clinic visit on 11/04/18. I advised the patient was seen in consult and headache medications were addressed. The tegretol was not addressed or renewed here. Rosario verbalized understanding, will be seeing the patient today in her office. documented in this encounter Plan of Treatment Not on file documented as of this encounter Visit Diagnoses Not on filedocumented in this encounter Care Teams Legal Clerk Relationship Specialty Start Date End Date Rosario Varela, LIZA [address] [place] [address] PCP - General Family Medicine 02/03/18 09/19/20 documented as of this encounter
--- OUTSIDE RECORDS SUMMARY | 2024-02-29 15:50 | XMS_ITS | Encounter Summary ---
[place] [address] Care Team Providers Care Supervisor Pigment Making Name Role Phone Rosario Varela APRN Primary Care Provider [phone] Reason for Visit * Reason Onset Date Comments Triage 03/09/2019 Encounter Details Date Type Department Care Team (Late st Contact Info) Description 03/09/2019 Telephone Neurology at [address] [address] Irvin New MD Triage Social History Tobacco Use Types Packs/Day Years [...] Miscellaneous Notes * Telephone Encounter - Aria Vigil RN - 03/09/2019 5:30 PM EST Patient called back again and asked for an 11:30 am appointment instead. Offered 11:15 am appointment and patient accepted. * Telephone Encounter - Aria Vigil RN - 03/09/2019 5:27 PM EST Patient called back and was scheduled for 03/09/19 at 9:[address] New * Telephone Encounter - Lela Bolanos RN - 03/09/2019 4:39 PM EST Call made to the patient. Offered the patient the recommendations from for ondansetron, toradol and a SPG block. Patient states he does not have any nausea, but would like to come in for the toradol and SPG. Patient will call back after speaking with his to schedule a time tomorrow morning with for the SPG. * Telephone Encounter - Aria Vigil RN - 03/09/2019 2:41 PM EST INCOMING/OUTGOING TELEPHONE CALL NURSING DOCUMENTATION Last Appointment: Next Appointment: Provider: Reason for Call: Acute Migraine/Headache REPORT ON CURRENT CONCERN ??? When did migraine start: three days with increased pain ??? Pain on scale of 1-10: 10/10 Is this a typical migraine: Says pain is more severe and his is more tired than usual ??? What rescue meds have been tried: rizatriptan Results: ineffective ??? Any aggravating factors: None ??? Any other alleviating factors: None GENERAL QUESTIONS ??? Any current sleep concerns: hasn't been sleeping well since the h/a but okay prior to that ??? Any current appetite or eating concerns: hasn't been eating well since the h/a but okay prior to that Any current pain concerns: No ??? Any new worries, stressors, or routine changes: No ??? Any recent Illness/Injuries/Surgeries: No - did have shunt tap on 02/10 with MARVA Uribe Any additional information to relay: Three mornings ago woke up with severe 10/10 headache He has tried the rizatriptan for the migraine once today, once yesterday and once the day prior with no change in the headache. Patient states he had been using rizatriptan in the past and it was effective He is more tired but has not been sleeping well for the past few days He is not hungry but not nauseated He saw neurosurgery and the visit went well He does not think there is any follow up needed on their end - did not recommend repeat imaging What medications/treatments have worked in the past (if any): He is about two hours away but would be able to come in for an appointment if needed He says he has had treatment in the ED for headaches like this but cannot remember what medications/treatments were effective He does not recall having any oral medication that helped these episodes Plan/Intervention/Follow Up - Report forwarded to Dr. New for review and comment. Patient notified they will be called back with recommendations when available and to call back in the interim if additional questions or changes arise before they hear back from this office. Patient agreeable to this plan. Current Medications: Outpatient Medications Marked as Taking for the 03/09/19 encounter (Telephone) with Irvin New MD Medication Sig Dispense Refill ??? rizatriptan (MAXALT) 10 mg Tablet Take 1 tablet by mouth as needed for Migraine. 10 tablet 0 ??? topiramate (TOPAMAX) 25 mg Tablet Take 1 tablet by mouth 2 times daily. 60 tablet 5 ??? candesartan (ATACAND) 8 mg Tablet Take 1 tablet by mouth daily. 90 tablet 3 ??? amitriptyline (ELAVIL) 25 [...] by mouth 2 times daily (before meals). Allergies: Allergies Allergen Reactions ??? Penicillins ??? Vancomycin Analogues ??? Vancomycin Hcl * Telephone Encounter - Bell Mccoy - 03/09/2019 12:22 PM EST Clinical [place] Message Caller: Chapin If not Pt / Relation to pt: Caller callback number: [phone] Reason for call:Headache/Migraine Is this the worst headache of the pt life: No Is the ALICEA still present: Yes When did the headache start: 3 days ago Message/Additional information for the nurse: States that he has had a headache for 3 days. States that the Rizatriptan is not touching it at all. States that it has been a fill blown 10 for pain level. States that it lasts all day. Wakes up with one and goes to bed with it as well. States he has been feeling sick to stomach and has hardly been able to eat. Send red Arrow Message to Nurse Or Is ALICEA still present: No Message/Additional information for the nurse: Disposition of Call ? Red [place] Message to nurse as ALICEA is still present ?? documented in this encounter Plan of Treatment Not on file documented as of this encounter Visit Diagnoses Not on filedocumented in this encounter Care Teams Supervisor Pigment Making Relationship Specialty Start Date End Date Rosario Varela APRN [address] [place] [address] PCP - General Family Medicine 02/03/18 09/19/20 documented as of this encounter
--- OUTSIDE RECORDS SUMMARY | 2024-02-29 15:50 | XMS_ITS | Encounter Summary ---
Author [facility] [address] Care Team Providers Care Skull Splitter Name Role Phone Rosario Varela APRN Primary Care Provider [phone] Encounter Details Date Type Department Care Team (Late st Contact Info) Description 12/08/2019 [place] [address] Rhoda Zapata Social History Tobacco Use Types [...] * Telephone Encounter - Rhoda Zapata - 12/13/2019 3:59 PM EDT Scheduled and called MomTracy to confirm = confirmed Pt is currently in-pt and Tracy has to arrange transportation = if can not work out for that date, will CB and reschedule [place] will page resident at [phone] when pt arrives for shunt ck Scheduled TOV w [facility] on 01/05 for review of films * Telephone Encounter - Rhoda Zapata - 12/13/2019 3:03 PM EDT Note from [facility]: Jeff - I talked to Chuy in [place] about getting Chapin Costa's shunt patency scan [place] problem with scheduling this. please just call scheduling and tell them that Chuy says its fine to schedule. ~~~~~~~~~~~~~~~~~~~~~~~~~~~~~~~~~~~~~~~~~~~~~~~~~~~~~~~~ Called MRI to schedule = David needs tech to schedule and second part of scan order for scheduling David from MRI informed needs [id number] - please add second order w 'B' at end ~~~~~~~~~~~~~~~~~~~~~~~~~~~~~~~~~~~~~~~~~~~~~~~~~~~~~~~~ RNCAMERON = [id number] = second part of scan * Telephone Encounter - Madina Abdalla - 12/12/2019 3:40 PM EDT RN, I called Nuclear Medicine to schedule shunt patency scan, but was told this is not a scan they offer any longer. 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 All referrals placed 12/07/19 ~~~~~~~~~~~~~~~~~~~~~~~~~~~~~~~~~~~~~~~~~~~~~~~~~~~~~~~~~~~~ Sonia Escalona APRN Sent: ThuDecember 07, 2019 ??7:16 PM To: P [facility] [place] ?? Follow-up and Dispositions Check-out Note: Cervical Flex extension today [place] Patency Scan - Referral to ophthalmology Referral to Pain clinic (cervicalgia) Follow up TOV once [place] scan is complete documented in this encounter Plan of Treatment Not on file documented as of this encounter Visit Diagnoses Not on filedocumented in this encounter Care Teams Skull Splitter Relationship Specialty Start Date End Date Rosario Varela APRN [address] [place] [address] PCP - General Family Medicine 02/03/18 09/19/20 documented as of this encounter
--- OUTSIDE RECORDS SUMMARY | 2024-02-29 15:50 | XMS_ITS | Encounter Summary ---
Author Organization [facility] [place] [address] Care Team Providers Care Endless Belt Finisher Name Role Phone Rosario Varela APRN Primary Care Provider [phone] [phone] Encounter Details Date Type Department Care Team (Late st Contact Info) Description 12/01/2019 10:00 PM EDT Ancillary Procedure Radiology Library at [place] [phone] Anoop Almanza MD Social History Tobacco Use [...] FILM LIBRARY STORAGE ONLY DX SKULL Routine 12/01/2019 9:57 PM EDT documented in this encounter Results * Film Library- Storage Only DX Skull (12/01/2019 9:57 PM EDT) Narrative [facility] [place] - 12/01/2019 9:57 PM EDT This exam is auto-finalizing. It's purpose is for storage only. Anoop Almanza MD IM FILM LIBRARY ORD ERABLES [place], [place] documented in this encounter Visit Diagnoses Not on filedocumented in this encounter Care Teams Endless Belt Finisher Relationship Specialty Start Date End Date Rosario Varela APRN [address] [place] [address] PCP - General Family Medicine 02/03/18 09/19/20 documented as of this encounter
--- OUTSIDE RECORDS SUMMARY | 2024-02-29 15:50 | XMS_ITS | Encounter Summary ---
[place] [address] Care Team Providers Care Uplands Division Director Name Role Phone Rosario Varela APRN Primary Care Provider [phone] Reason for Visit * Diagnostic Test (Routine) - Closed Specialty Diagnoses / Procedures Referred By Contac t Referred To Contact Radiology Diagnoses Cervicalgia S/P INSPECTOR SET UP AND LAY OUT shunt Procedures NM CSF Shunt Patency Scan Sonia Escalona [facility] [place] [place] [address] [place] [address] Referral ID Status Reason Start Date Expiration Date V isits Requested Visits Authorized [id number] Closed Specialty Service Requested 12/07/2019 06/06/2021 1 1 Encounter Details Date Type Department Care Team (Latest Contact Info) Description 01/17/2020 9:48 AM EST - 01/17/2020 11:59 PM EST Hospital Encounter [place] [address] Sonia Escalona [facility] [place] [address] Discharge Disposition: Home Social History Tobacco Use [...] daily. 11/17/2019 05/24/2022 rizatriptan (MAXALT) 10 mg TabletIndications:Sign Maker susanna migraine without aura without status migrainosus, not intractable Take 1 tablet by mouth as needed for Migraine. 10 tablet 09/02/2019 09/24/2023 topiramate (TOPAMAX) 25 mg TabletIndications:Sign Maker susanna migraine without aura without status migrainosus, [...] as of this encounter Procedure Notes * Ovidio Anderson MD - 01/17/2020 10:30 AM ESTProcedure(s): SHUNT TAP Pre-Procedure Diagnose(s): Shunt malfunction, initial encounter Post-Procedure Diagnose(s): Shunt malfunction, initial encounter --OPERATIVE NOTE-- ATTENDING SURGEON(S): Cami RESIDENT SURGEON(S): Ovidio Anderson MD NAME OF OPERATION/PROCEDURE: Shunt Tap for NM shunt study PREOPERATIVE DIAGNOSIS: 1. Possible shunt malfunction POSTOPERATIVE DIAGNOSES: Same ANESTHESIA: None OPERATIVE FINDINGS: Minimal proximal flow of CSF INDICATIONS FOR PROCEDURE: Evaluation of shunt malfunction DESCRIPTION OF PROCEDURE: After consent was obtained, patient's head was turned to the Left and prepped and draped in usual fashion over the shunt reservoir. Using sterile technique, a 23 gauge butterfly needle was inserted into the reservoir. A small amount of CSF was able to be drawn into a 10cc syringe, however there did not appear to be free flow. After .5cc of CSF was removed, .5cc of the trace was injected into the reservoir. Patient tolerated the procedure well without any complications. COMPLICATIONS: None ESTIMATED BLOOD LOSS: None SPECIMENS: None FLUID REPLACED: None INSTRUMENT COUNT: None Ovidio Anderson MD documented in this encounter Plan of Treatment Not on file documented as of this encounter Procedures Procedure Name Priority Date/Time Associated Diagnosis Comments NM CSF SHUNT PATENCY SCAN Routine 01/17/2020 1:31 PM EST Cervicalgia S/P INSPECTOR SET UP AND LAY OUT shunt documented in this encounter Results * [...] headaches, R sided neck pain. last shunt [id number]. rule out shunt malfunction. TECHNIQUE: 0.6 mCi [...] please contact the number below. Sonia Escalona SERVICES EXECUTIVE IMG [place] ORDERABLES documented in this encounter Visit Diagnoses Not on filedocumented in this encounter Care Teams Uplands Division Director Relationship Specialty Start Date End Date Rosario Varela APRN [address] [place] [address] PCP - General Family Medicine 02/03/18 09/19/20 documented as of this encounter
--- OUTSIDE RECORDS SUMMARY | 2024-02-29 15:51 | XMS_ITS | Encounter Summary ---
Author Organization [facility] [place] [address] Care Team Providers Care Char Filter Operator Helper Name Role Phone Rosario Varela APRN Primary Care Provider [phone] Reason for Referral * Diagnostic Test (Routine) - Closed Specialty Diagnoses / Procedures Referred By Contac t Referred To Contact Radiology Diagnoses Cervical spondylitis Procedures MRI Cervical Spine wo Contrast (Generic) Lul Alvarez MD [facility] [address] [place] [id number] [place] [id number] Referral ID Status Reason Start Date Expiration Date V isits Requested Visits Authorized [id number] Closed Specialty Service Requested 07/29/2018 07/29/2019 1 1 Reason for Visit * Diagnostic Test (Routine) - Closed Specialty Diagnoses / Procedures Referred By Contac t Referred To Contact Radiology Diagnoses Cervical spondylitis Procedures MRI Cervical Spine wo Contrast (Generic) Lul Alvarez MD [facility] [place] [address] [place] [address] Referral ID Status Reason Start Date Expiration Date V isits Requested Visits Authorized [id number] Closed Specialty Service Requested 07/29/2018 07/29/2019 1 1 Encounter Details Date Type Department Care Team (Latest Contact Info) Description 08/16/2018 2:23 PM EDT - 08/16/2018 11:59 PM EDT Hospital [place] [id number] Lul Alvarez MD Cervical spondylitis Discharge Disposition: Home Social History Tobacco Use [...] the muscle every 14 days. 0 05/03/2018 gabapentin (NEURONTIN) 100 mg Capsule 100 mg [...] Comments MRI CERVICAL SPINE WO CONTRAST Routine 08/16/2018 3:20 PM EDT Cervical spondylitis documented in this encounter Results * MRI Cervical Spine wo Contrast (Generic) (08/16/2018 3:20 PM EDT) Anatomical Region Laterality Modality C-spine Magnetic Resonan ce Impressions 08/16/2018 4:58 PM EDT Similar pattern of degenerative changes in the cervical spine greatest at C5-6 and C6-C7. Stable disc extrusion at C5-6. Mild interval increase in disc extrusion at the C6-7 level with interval low progression of mass effect on the cord on the right. Thank you for letting us participate in the care of this patient. For questions regarding this report, please contact the number below. ? Narrative 08/16/2018 4:58 PM EDT EXAMINATION: MRI CERVICAL SPINE WO CONTRAST (GENERIC) CLINICAL HISTORY: Neck pain, C spondylitis. TECHNIQUE: MRI of the cervical spine performed without intravenous contrast administration. COMPARISON: 01/19/2017 MRI 01/22/2017 plain film C-spine FINDINGS: There is normal alignment of the 7 cervical vertebral bodies. Vertebral bodies are normal in height. No aggressive marrow lesions. There is a focus of high signal intensity projecting in the subarticular superior endplate of C7, stable compared to prior examination likely reactive and benign given the stability over time. Prevertebral soft tissues are normal. Craniocervical junction is normal. No cord signal abnormalities are identified. Findings at specific levels: C2-3: Normal C3-4: No disc protrusion or central stenosis. Uncinate proliferative changes and facet arthropathy, right greater than left with moderate right and mild left foraminal narrowing. C4-5: Mild central disc protrusion with mild effacement of the ventral thecal sac, similar to prior exam. There is facet arthropathy right greater than left with moderate right and mild left foraminal narrowing. Similar to prior exam. C5-6: There is a central disc extrusion extending slightly caudal. This appears to contact and mildly flatten the ventral margin of the cord, unchanged from prior examination. Mild bilateral foraminal narrowing due to facet arthropathy. C6-C7: Central and right paracentral disc extrusion extending caudal and cephalad, contacting and flattening the ventral margin of the cord on the right. There is moderate to severe central stenosis. There is severe proximal right and moderate left foraminal narrowing. Findings appear progressed compared to prior exam. C7-T1: No disc protrusion or central stenosis. No foraminal narrowing. Procedure Note Errol Clinton MD - 08/16/2018 EXAMINATION: MRI CERVICAL SPINE WO CONTRAST (GENERIC) CLINICAL HISTORY: Neck pain, C spondylitis. TECHNIQUE: MRI of the cervical spine performed without intravenous contrastadministration. COMPARISON: 01/19/2017 MRI 01/22/2017 plain film C-spine FINDINGS: There is normal alignment of the 7 cervical vertebral bodies. Vertebralbodies are normal in height. No aggressive marrow lesions. There is a focus ofhigh signal intensity projecting in the subarticular superior endplate of C7,stable compared to prior examination likely reactive and benign given thestability over time. Prevertebral soft tissues are normal. Craniocervical junction is normal.No cord signal abnormalities are identified. Findings at specific levels: C2-3: Normal C3-4: No disc protrusion or central stenosis. Uncinate proliferativechanges and facet arthropathy, right greater than left with moderate right and mildleft foraminal narrowing. C4-5: Mild central disc protrusion with mild effacement of the ventralthecal sac, similar to prior exam. There is facet arthropathy right greater thanleft with moderate right and mild left foraminal narrowing. Similar to priorexam. C5-6: There is a central disc extrusion extending slightly caudal. Thisappears to contact and mildly flatten the ventral margin of the cord, unchangedfrom prior examination. Mild bilateral foraminal narrowing due to facetarthropathy. C6-C7: Central and right paracentral disc extrusion extending caudal and cephalad, contacting and flattening the ventral margin of the cord on theright. There is moderate to severe central stenosis. There is severe proximalright and moderate left foraminal narrowing. Findings appear progressed compared to prior exam. C7-T1: No disc protrusion or central stenosis. No foraminal narrowing. IMPRESSION Similar pattern of degenerative changes in the cervical spine greatest atC5-6 and C6-C7. Stable disc extrusion at C5-6. Mild interval increase in disc extrusion at the C6-7 level with intervallow progression of mass effect on the cord on the right. Thank you for letting us participate in the care of this patient. Forquestions regarding this report, please contact the number below. Lul Alvarez MD IMG MRI ORDERABLES documented in this encounter Visit Diagnoses Diagnosis Cervical spondylitis Cervical spondylosis without myelopathy documented in this encounter Care Teams Char Filter Operator Helper Relationship Specialty Start Date End Date Rosario Varela, FINANCIAL SYSTEMS ANALYST [address] [place] [address] PCP - General Family Medicine 02/03/18 09/19/20 documented as of this encounter
--- OUTSIDE RECORDS SUMMARY | 2024-02-29 15:51 | XMS_ITS | Encounter Summary ---
Author Organization [facility] Address [facility] [place] [address] Care Team Providers Care Balance Truing Inspector Name Role Phone Cl Beltran MD Primary Care Provider [phone] Encounter Details Date Type Department Care Team (Latest Contact Info) Description 11/10/2017 12:05 AM EDT - 11/10/2017 11:59 PM EDT Hospital Encounter Radiology Library at [facility] [place] [id number] Helder Oviedo MD [facility] [place] [address] Discharge Disposition: Home Social History Tobacco Use [...] Sig Dispensed Refills Start Date End Date methylPREDNISolone (MEDROL DOSPACK) 4 mg Tablets, Dose Pack Use as directed on product package. 21 tablet 01/19/2017 05/20/2018 gabapentin (NEURONTIN) 100 mg Capsule Take 1 capsule by mouth 3 times daily. 90 capsule 3 01/19/2017 07/29/2018 cyclobenzaprine (FLEXERIL) 5 mg Tablet Take 1 tablet by mouth every 8 hours as needed for Muscle spasms. 30 tablet 01/19/2017 05/20/2018 levothyroxine (SYNTHROID) 100 mcg Tablet Take 50 mcg by mouth daily. 05/20/2018 TESTOSTERONE CYPIONATE IM Inject into the muscle every 14 days. 05/20/2018 gemfibrozil (LOPID) 600 mg Tablet Take 600 mg by mouth 2 times daily (before meals). 05/24/2022 carBAMazepine (TEGRETOL XR) 400 mg 12 hr tablet 06/17/2006 05/20/2018 documented as of this encounter Plan of Treatment Not on file documented as of this encounter Procedures Procedure Name Priority Date/Time Associated Diagnosis Comments FILM LIBRARY STORAGE ONLY CT HEAD Routine 11/10/2017 12:05 AM EDT documented in this encounter Results * Film Library- Storage Only CT Head (11/10/2017 12:05 AM EDT) Narrative [facility] - 11/10/2017 4:37 PM EDT This exam is for storage only and is auto-finalizing. Helder Oviedo MD IMG FILM LIBRARY ORD ERABLES [place], [place] documented in this encounter Visit Diagnoses Not on filedocumented in this encounter Care Teams Balance Truing Inspector Relationship Specialty Start Date End Date Cl Beltran MD PCP - General 01/15/10 02/02/18 documented as of this encounter
--- OUTSIDE RECORDS SUMMARY | 2024-02-29 15:51 | XMS_ITS | Encounter Summary ---
Author Organization [facility] [place] [address] Care Team Providers Care Denture Processor Name Role Phone Cl Beltran MD Primary Care Provider [phone] Encounter Details Date Type Department Care Team (Late st Contact Info) Description 01/14/2017 Notes [place] [address] Sonia Escalona APRN [facility] [place] [address] Social History Tobacco Use Types Packs/Day Years [...] on filedocumented in this encounter Care Teams Denture Processor Relationship Specialty Start Date End Date Cl Beltran MD PCP - General 01/15/10 02/02/18 documented as of this encounter
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
--- OUTSIDE RECORDS SUMMARY | 2024-02-29 15:51 | XMS_ITS | Encounter Summary ---
Author Organization [facility] [place] [address] Care Team Providers Care Sensitizer Name Role Phone Rosario Varela APRN Primary Care Provider [phone] Encounter Details Date Type Department Care Team (Late st Contact Info) Description 04/21/2018 [place] [address] Lul Alvarez MD Social History Tobacco Use Types Packs/Day [...] encounter Miscellaneous Notes * Telephone Encounter - Tosha Jerome RN - 04/23/2018 11:37 AM EST Called to review Dr. Alvarez suggestion for chiropractor with Chapin: Marko Plummer at [facility] Patient verbalized dissatisfaction. He would like a Chiropractor closer to [facility] if possible. Under internet search and found 3 chiropractic practitioners a closer to [facility]. Gave the name and locations. Also encouraged patient to find a chiropractor he likes best with an internet search. Offered patient a copy of his referral and he accepted. 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 No other questions or concerns at this time. * Telephone Encounter - Bell Mccoy - 04/23/2018 11:13 AM EST Clinical [place] Message Caller: Chapin If not Pt / Relation to pt: Call back Number: [phone] Best time to reach caller: Anytime Reason for call: Asking where Dr. Alvarez wants him to see a chiropractor Message/information for the nurse: Pt would like to know where he is suppose to see a chiropractor as he is not aware of any up in [facility]. Disposition of Call ?? Routine Message sent to the Nurse * Telephone Encounter - Lul Alvarez MD - 04/23/2018 11:02 AM EST Called and discussed MRI results and why he needs to have neck therapy * Telephone Encounter - Christianne San - 04/23/2018 10:46 AM EST Clinical Packer Operator Automatic Message Caller: Chapin If not Pt / Relation to pt: Call back number: [phone] Best time to reach caller: Anytime Reason for call: Lab/Test results Results being requested: MRI Brain w/o contrast Where were tab/test done: [facility] [place] When were lab/test done: 04/22/18 Additional information or questions for the nurse: Chapin would like a call back to discuss the results of the MRI Brain. He states he would prefer to wait to schedule an appointment with a chiropractor until after the results of the MRI are reviewed. Patient states he is currently at [facility] with his who is inpatient. He is willing to come down to clinic to meet with Dr. Alvarez or Tosha in-person if they prefer. Disposition of Call: routine message to nurse * Telephone Encounter - Tosha Jerome RN - 04/21/2018 11:09 AM EST Returned call to notify Chapin per Dr. Alvarez: We have Marko Plummer at [facility]. Patient verbalized understanding. Unable to confirm whether patient would like to schedule with Marko Plummer, as patient reports he is preparing to go to [facility]. Will ask Secretaries to reach out later today or tomorrow for scheduling patient. * Telephone Encounter - Tosha Jerome RN - 04/21/2018 9:47 AM EST Reviewed visit notes, confirmed the plan is for Chiropractic. Returned call to notify Chapin, his referral is for chiropractic. Patient verbalized understanding. He is accompanying a family member in hospital and would like a copy of the referral. Printed a copy, placed in envelope with name, and is waiting at [employer] for him. Patient will picker machine operator some time today. Chapin reports he doesn't know where to take his referral, does Dr. Alvarez recommend any chiropractors to provide this service? * Telephone Encounter - Seble Ugarte - 04/21/2018 9:29 AM EST Clinical Packer Operator Automatic Message Caller: Chapin If not Pt / Relation to pt: Call back Number:[phone] Best time to reach caller: anytime Reason for call: referral Message/information for the nurse: Patient called stating that he is checking on the status of his referral to PT at [facility]. I informed patient that there is not a referral in for PT but for a chiropractor. Patient states that he was under the impression that it was suppose to be for PT. Disposition of Call ?? Routine Message sent to the Nurse documented in this encounter Plan of Treatment Not on file documented as of this encounter Visit Diagnoses Not on filedocumented in this encounter Care Teams Sensitizer Relationship Specialty Start Date End Date Rosario Varela APRN [address] [place] [address] PCP - General Family Medicine 02/03/18 09/19/20 documented as of this encounter
--- OUTSIDE RECORDS SUMMARY | 2024-02-29 15:51 | XMS_ITS | Encounter Summary ---
Author Organization [facility] [address] Care Team Providers Care Scrap Handler Name Role Phone Rosario Varela APRN Primary Care Provider [phone] Reason for Referral * Diagnostic Test (Routine) - Closed Specialty Diagnoses / Procedures Referred By Contac t Referred To Contact Radiology Diagnoses Cervical spondylitis Procedures MRI Cervical Spine wo Contrast (Generic) Lul Alvarez MD [facility] [place] [address] [facility] [place] [address] Referral ID Status Reason Start Date Expiration Date V isits Requested Visits Authorized [id number] Closed Specialty Service Requested 07/29/2018 07/29/2019 1 1 * Consultation (Routine) - Closed Specialty Diagnoses / Procedures Referred By Contac t Referred To Contact Pain Management Diagnoses Cervical spondylitis C spine arthritis with severe neck pain. Consideration of RFA. median branch blocks Lul Alvarez MD [facility] [place] [address] [address] [facility] [address] [place] [address] Referral ID Status Reason Start Date Expiration Date V isits Requested Visits Authorized [id number] Closed Consult, Test & Treat 07/29/2018 07/29/2019 1 1 Encounter Details Date Type Department Care Team (Late st Contact Info) Description 07/29/2018 11:45 AM EDT Office [place] [address] Lul Alvarez MD Cervical spondylitis Social History Tobacco Use Types Packs/Day Years [...] as of this encounter Progress Notes * Lul Alvarez MD - 07/29/2018 11:45 AM EDT Images from the original note were not included. [facility] [place] [id number] 07/29/2018 Patient name: Chapin Costa Date of : 1970 Referring provider: Rosario Varela APRN [address] [place] [id number] HISTORY ?? REASON FOR REFERRAL/CHIEF COMPLAINT: Headache HISTORY OF PRESENTING COMPLAINTS: Referred for headaches. He has congenital aqueductal stenosis s/p shunting. He has been having headache for a long time. He had headaches all his life. He wondered if his shunt was affected. That hasbeen tested and it was found to be normal. He thinks there is something wrong with the shunt. He has catheter running around the scalp. He has pain there. He says he is sick of headaches. He is on amitriptyline nightly. He takes ibuprofen or tylenol. Headaches are all around the head. Up and around the catheter he can get pains. He was admitted to the hospital here few months ago for the same complaints. He has epilepsy. He is on tegretol prescribed through his PCP. He has been on that his whole time. He has seen neurologist in the remote past. He hasn't had any seizure for many years. He was on gabapentin and flexeril in the past for headaches. Not taking them at present. Based on records review, he had multiple shunt revision in the remote past. He was admitted to Neurology service over a year ago when he was treated with DHE protocol. CSF opening pressure at that time was 14 mms. He was evaluated by neurosurgery at that time as well. 05/20/2018: Previously seen for worsening headaches. Started on topiramate during previous visit with plan to titrate up. He says he is in a lot of pain. He is taking topiramate 25 BID. He had one session of PT so far. It hasn't helped much. 07/29/2018: Cervicogenic headache follow up. He says he is having problems with neck. He ws in physical therapy for a while which isn't helping. He has headaches in the morning when he wakes up. Some days he is fine, other days it tends to linger. He had an MRI in 2017 which showed some arthritis. He had injection in the neck which lasted a day. He stopped taking topiramate. He is taking amitriptline 25 which was put on by another physician. He got some relief after the ONB last visit. It lasted only one day. Now the pain is back, severe and frustrating for him. PMHx: No past medical history on file. No past surgical history on file. Aqueductal stenosis. He has Epilepsy. Hypothyroidism on supplements Depression: cannot remember his medication name. Family History: No family history on file. No family history of neurologic problems. Social History: reports that he has never smoked. He has never used smokeless tobacco. He reports that he does not drink alcohol or use drugs. No flowsheet data found. 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 Non smoker. No alcoholism. No substance abuse. He lives with and step daughters in [facility]. Review of systems: Constitutional: No fever/chills Eyes: + vision problems, R eye ENT: No nasal symptoms. Cardiovascular: No chest pain or palpitations Respiratory: No cough or shortness of breath Gastrointestinal: No nausea, vomiting, diarrhea or constipation Genitourinary: No dysuria, no incontinence Hematologic: No bleeding or bruising Endocrine: No heat or cold intolerance Musculoskeletal: No Joint pains Integumentary: No skin rashes. Neurologic: See HPI Psychiatric: Depression +, normal sleep Allergy/ Immunology: Allergy as documented. [x] Review of systems otherwise negative Medications: Allergies: Allergies Allergen Reactions ??? Penicillins ??? Vancomycin Analogues ??? Vancomycin Hcl EXAMINATION ?? Vitals: There were no vitals taken for this visit. General Examination: Appearance: alert, no distress ENT, Throat: oral mucosa moist. Extremity: no edema Skin: No rashes noted, neck scarring from prior surgical procedures. Neurological Examination o Higher functions: - Speech: fluent, no aphasia/dysarthria or dysphonia - Alert and oriented. o Cranial Nerves - II-XII: Eyes dysconjugate in primary position. R eye exotropia. reacting to light. No ptosis/nystagmus. Vision normal. No field deficits. EOMI. No facial droop. No weakness of jaw/uvula/ palate o Reflexes - Brisk bilaterally biceps, BR and knee o Motor and Coordination - Normal tone, bulk strength and coordination of right and left sided muscles o Sensory - Normal sensations bilaterally. o Skull and Spine/ Gait - Limited neck ROM - Occipital nerve tenderness bilaterally - Normal gait ?? LABS AND IMAGING ?? Labs GENERAL THYROID: Lab Results Component Value Date TSH 3.37 01/15/2017 FolateNo results found for: SFOLATE ESR Lab Results Component Value Date SEDRATE 7 01/15/2017 CRP Lab Results Component Value Date CRP 2.6 01/15/2017 B12No results found for: [id number] CKNo results found for: CK Angiotensin ConvertaseNo results found for: FRANCISCO INFECTIONS HIVNo results found for: HIV12 HEPATITIS PANELNo results found for: HAV, HEPBSAB, HBEAG, HEPBSAG, HEPCAB AUTOIMMUNE PANEL ANANo results found for: KWAKU DSDNANo results found for: DNAABDS Wilfredo results found for: VIANEY C3,C4, COMPLEMENTSNo results found for: C3, C4 CARDIOLIPIN, LUPUSNo components found for: CARDIOLIPINANTIBODY, LUPUS, ANTICOAGULANT CELIAC: TTG, GLIADIN, ENDOMYSIALNo components found for: TTRANSGLUTAMINASEANTIBODY ANTIGLIADINANTIBODY VASCULITIS: C,P,ANCA, MPONo results found for: PANCA, CANCA, MYELOP, PR3AB NMONo components found for: NEUROMYELITISOPTICAANTIBODY MG: ACHRAB, Anit MuSK, LEMSNo components found for: ACETYLCHOLINERECEPTORABBINDING, LEMSANTIBODY, ANTISKELETALMUSCLEANTIBODY CRYOGLOBULINSNo components found for: CRYOGLOBULINS METABOLIC CERULOPLASMINNo components found for: CERULOPLASMIN BETA 2 MICROGLOBULINNo results found for: B2MG No results found for: TPROTEINPEP, ALBELECT, ALPHA1, ALPHA2, GAMMAGLOB, APB1 CORTISOLNo results found for: CORTISOL LDH No results found for: LDH NUTRITIONAL VITAMIN DNo results found for: 25OHVITD PRE ALBUMINNo results found for: PREALBUMIN FERRITINNo results found for: IRON COPPERNo results found for: COPPER PERIPHERAL NEUROPATHY HEMOGLOBIN A1CNo results found for: HA1C LIPID PROFILENo results found for: CHLPL, HDL, CHOLHDL, TRIG, LDLCHOL, LDLDIRECT JOSELIN 65No results found for: XPH95MO ANTI GM1,ANTI SGPG, MAG@RESUFAST (MAGAUTOAB,SGPG,MAGWB,GM1AB)@ HEAVY METAL SCREENNo results found for: LEAD, ARSENIC METHYLMLONIC ACIDNo results found for: METHYLMAL IgA, IGG No results found for: IGA, IGG CSF PANEL Lab Results Component Value Date NUCCELMANCSF 3 01/16/2017 RBCCSFCT 0 01/16/2017 CSFGLUC 62 01/16/2017 CSFPROTEIN 263 (H) 01/16/2017 XANTHOCHROM Slight 01/16/2017 CSFIGGINDEX (A) 01/16/2017 Test Result Flag Unit RefValue Cerebrospinal Fl, CSF, IgG Index IgG Index, CSF 0.50 <=0.85 IgG, CSF 19.5 H mg/dL <=8.1 ADDITIONAL INFORMATION This test has been modified from the adult services librarian's instructions. Its performance characteristics were determined by [facility] in a manner consistent with CLIA requirements. This test has not been cleared or approved by the U.S. Food and Drug Administration. Albumin, CSF 192.0 H mg/dL <=27.0 ADDITIONAL INFORMATION This test has been modified from the adult services librarian's instructions. Its performance characteristics were determined by [facility] in a manner consistent with CLIA requirements. This test has not been cleared or approved by the U.S. Food and Drug Administration. IgG/Albumin, CSF 0.10 <=0.21 Synthesis Rate, CSF 14.92 H mg/24 h <=12 IgG, S 962 mg/dL 767 - 1590 Albumin, S 4920 H mg/dL 3200 - 4800 IgG/Albumin, S 0.20 <=0.40 Test Performed by: [facility] - [address] [address] OLIGOCSF 01/16/2017 Test Result Flag Unit RefValue Oligoclonal Banding Serum Bands 0 bands CSF Bands 0 bands CSF Olig Bands Interpretation 0 bands <4 The oligoclonal band assay detected 3 or fewer unique IgG bands in the CSF. This is a negative result. Test Performed by: [facility] - [address] [address] ENTVPCR Negative 01/16/2017 VZVPCR 01/16/2017 Test Result Flag Unit RefValue Varicella-Zoster Virus PCR Specimen Source csf Varicella-Zoster Virus PCR Negative Negative ADDITIONAL INFORMATION This test was developed and its performance characteristics determined by [facility] in a manner consistent with CLIA requirements. This test has not been cleared or approved by the U.S. Food and Drug Administration. Test Performed by: [facility] - [address] [address] PARANEOPLASTIC PANEL No results found for: PARANEOINTRP, ANNA1, ANNA2, ANNA3, AGNA1, PCA1, PCA2, PCATYPETR, AMPHIPHYSIN,[id number], STRIATMSCLAB, CACHABPQTYPE, CACHABNTYPE, ACHRBINDAB, NEUROKCHAB, NMDARECEPTOR, [id number] THROMBOSIS HOMEOCYSTEINENo results found for: HOMOCYSTEINE THROMBOSIS PANELNo results found for: ACAIGM, [id number] FACTOR V LEIDEN No components found for: FACTORVLEIDEN PROTEIN C,SNo components found for: PROTEINC, PROTEINS ANTITHROMBIN IIINo components found for: ANTITHROMBINIII Miscellaneous Send outsNo results found for: MISCSENDOUT, MISCMAYO MRI C spine: DJD changes. CT head: shunt +. Venrtricles- contracted. MRI Brain: shunt in situ, aqueductal stenosis. ASSESSMENT, PLAN & RECOMMENDATIONS ?? ASSESSMENT: 47 Y M with history of congenital aqueduct stenosis, hydrocephalus s/p shunt surgery, epilepsy, chronic migraines, depression, DJD spine previously evaluated for worsening headaches. He has dysconjugate eyes with R exotropia. He had cervicogenic dizziness, and occipital neuralgia on theright side. Prior CT head showed shunt in situ with decompressed ventricles. C spine showed DJD changes. MRI shows stable shunt/ slit like ventricles/ aqueductal stenosis. Headaches seems cervicogenic in nature. Still has persisting neck tenderness. IMPRESSION: 1. Cervicogenic headaches and Dizziness 2. Occipital neuralgia R 3. Chronic migraine headaches. 4. Epilepsy - controlled. PLAN/RECOMMENDATIONS: Neck pain is persistiing. Will arrange MRI C spine and also a pain clinic consult to look into neckpain issues and consideration of median branch blocks or RFA Started on gabapentin 100 mg AM/ 200 mg HS meanwhile. Flexeril HS. Continue neck PT Occipital nerve blocks offered but he declined. Follow up in 3 months. Lul Alvarez MD Department of Neurology [facility] documented in this encounter Plan of Treatment Scheduled Referrals Name Type Priority Associated Diagnoses Orde r Schedule Referral to Pain Clinic Outpatient Referral Routine Cervical spondylitis Ordered: 07/29/2018 documented as of this encounter Results * [...] Diagnosis Cervical spondylitis Cervical spondylosis without myelopathy Cervical spondylitis Cervical spondylosis without myelopathy documented in this encounter Care Teams Scrap Handler Relationship Specialty Start Date End Date Rosario Varela APRN [address] [place] [address] PCP - General Family Medicine 02/03/18 09/19/20 documented as of this encounter
--- OUTSIDE RECORDS SUMMARY | 2024-02-29 15:51 | XMS_ITS | Encounter Summary ---
[facility] [place] [address] Care Team Providers Care Clarity Specialists Name Role Phone Cl Beltran MD Primary Care Provider [phone] Reason for Referral * Physical Therapy (Routine) - Specialty Diagnoses / Procedures Referred By Contac t Referred To Contact Diagnoses Neck pain Cl Atkins PA [facility] [place] [place] [address] Referral ID Status Reason Start Date Expiration Date V isits Requested Visits Authorized [id number] Evaluate and Treat 01/22/2017 07/21/2017 12 12 Reason for Visit * Reason Comments Neck Pain Encounter Details Date Type Department Care Team (Late st Contact Info) Description 01/22/2017 9:30 AM EST Office Visit [place] [address] Cl Atkins PA [facility] [place] [address] Neck pain; Chronic intractable headache, unspecified headache type; Persistent headaches; S/P LINE BUILDER shunt Social History Tobacco Use Types Packs/Day [...] Sign Reading Time Taken Comments Blood Pressure 138/97 01/22/2017 9:17 AM EST Pulse 102 01/22/2017 9:17 AM EST Temperature - - Respiratory Rate - - Oxygen Saturation - - Inhaled Oxygen Concentration - - Weight 81.6 kg (179 lb 14.3 oz) 01/22/2017 9:17 AM EST Height 172.7 cm (5' 8) 01/22/2017 9:17 AM EST Body Mass Index 27.35 01/22/2017 9:17 AM EST documented in this encounter Progress Notes * Cl Atkins PA - 01/22/2017 9:30 AM EST Name: Chapin Costa : 1970 PCP: Cl Beltran MD REF: [facility] Cintron Date of Service: 01/22/2017 Chief Complaint Patient presents with ??? Neck Pain History: Chapin Costa presents after inpatient hospitalization for headache. His headaches have improved significantly and he notes they are now a 1/10. He complains now of neck pain. His neckpain started about one week ago. He denies having had neck pain before. He notes some occasional radiation down the R arm, pain stops at the wrist. He denies focal motor weakness or sensory deficits.No gait instability. He is requesting a return to work note. Physical Exam: BP (!) 138/97 Pulse 102 Ht 172.7 cm (5' 8) Wt 81.6 kg (179 lb 14.3 oz) BMI 27.35 kg/m2\ Chapin Costa is a 46 y.o. male in no cardiorespiratory distress Strength 5/5 in online merchandising manager, triceps, biceps, and deltoids bilaterally Strength 5/5 in hip flexion, knee extension, DF, and PF bilaterally Sensation intact throughout all four extremities DTRs are symmetric, no hyperreflexia, no Ansari's Radiology & Imaging: XR flexion-extension 01/22 without evidence of instability. Assessment & Plan: 46 year old male with shunted hydrocephalus since infancy for aqueductal stenosis presents in follow up after recent hospitalization for acute severe headaches managed by neurology now complaining of neck pain. Neck pain -MRI demonstrates spinal stenosis -flexion-extension today does not demonstrate any instability -referral to Physical therapy provided to patient -consider referral to pain clinic if no improvement following PT -follow up Chapin fine instructed to call should he see no improvement after 3 months or sooner for worsening JOSE RosarioC documented in this encounter Plan of Treatment Scheduled Referrals Name Type Priority Associated Diagnoses Orde r Schedule Referral to Physical Therapy Outpatient Referral Routine Neck pain Ordered: 01/22/2017 documented as of this encounter Results * XR Cervical Spine Flexion Extension Only (01/22/2017 10:55 AM EST) Anatomical Region Laterality Modality C-spine N/A Digital Radiogra phy Impressions 01/22/2017 11:06 AM EST No acute injury. No radiographic evidence of instability. Narrative 01/22/2017 11:06 AM EST EXAMINATION: XR CERVICAL SPINE FLEXION EXTENSION ONLY CLINICAL HISTORY: neck pain TECHNIQUE: Lateral views of the cervical spine were acquired in the flexion and extension positions COMPARISON: CT 01/15/2017 FINDINGS: No fracture. No focal soft tissue swelling. No disc space narrowing or malalignment. No focal instability is identified with flexion and extension. Shunt tubing projects over the spine. Procedure Note Cy Bergeron MD - 01/22/2017 EXAMINATION: XR CERVICAL SPINE FLEXION EXTENSION ONLY CLINICAL HISTORY: neck pain TECHNIQUE: Lateral views of the cervical spine were acquired in the flexion andextension positions COMPARISON: CT 01/15/2017 FINDINGS: No fracture. No focal soft tissue swelling. No disc space narrowing or malalignment. No focal instability is identified with flexion and extension. Shunt tubing projects over the spine. IMPRESSION No acute injury. No radiographic evidence of instability. 11:06 AM Andrew Diaz MD IMG DX ORDERABLES documented in this encounter Visit Diagnoses Diagnosis Neck pain Cervicalgia Chronic intractable headache, unspecified headache type S/P LINE BUILDER shunt Presence of cerebrospinal fluid drainage device Neck pain Cervicalgia documented in this encounter Care Teams Clarity Specialists Relationship Specialty Start Date End Date Cl Beltran MD PCP - General 01/15/10 02/02/18 documented as of this encounter
--- OUTSIDE RECORDS SUMMARY | 2024-02-29 15:51 | XMS_ITS | Encounter Summary ---
[place] [address] Care Team Providers Care Laundry Aide Name Role Phone Rosario Varela APRN Primary Care Provider [phone] Reason for Visit * Reason Comments Advice Only shunt check post MRI Encounter Details Date Type Department Care Team (Late st Contact Info) Description 08/16/2018 3:45 PM EDT Office [place] [id number] Vanessa Sol RN S/P PROGRAMMING SPECIALIST shunt Social History Tobacco Use Types Packs/Day [...] Sign Reading Time Taken Comments Blood Pressure 150/86 08/16/2018 3:32 PM EDT Pulse 65 08/16/2018 3:32 PM EDT Temperature - - Respiratory Rate - - Oxygen Saturation - - Inhaled Oxygen Concentration - - Weight - - Height - - Body Mass Index - - documented in this encounter Progress Notes * Vanessa Sol - 08/16/2018 3:45 PM EDT Chapin is s/p MRI today for c/o neck pain/cervical spondylitis. I saw him after the MRI to set the right Codman occipital VPS to 80 mm. That was the last documented setting as of 01/19/[address] Bee and Meghan Rondon RN on 04/22/18. Setting was confirmed by the operating system programmer. documented in this encounter Plan of Treatment Not on file documented as of this encounter Visit Diagnoses Diagnosis S/P PROGRAMMING SPECIALIST shunt Presence of cerebrospinal fluid drainage device documented in this encounter Care Teams Laundry Aide Relationship Specialty Start Date End Date Rosario Varela APRN [address] [place] [address] PCP - General Family Medicine 02/03/18 09/19/20 documented as of this encounter
--- OUTSIDE RECORDS SUMMARY | 2024-02-29 15:51 | XMS_ITS | Encounter Summary ---
[place] [address] Care Team Providers Care Featherer Name Role Phone Rosario Varela APRN Primary Care Provider [phone] Encounter Details Date Type Department Care Team (Late st Contact Info) Description 04/21/2018 Orders [place] [address] Enriqueta Cannon Social History Tobacco Use Types Packs/Day Years [...] on filedocumented in this encounter Care Teams Featherer Relationship Specialty Start Date End Date Rosario Varela APRN [address] [place] [address] PCP - General Family Medicine 02/03/18 09/19/20 documented as of this encounter
--- OUTSIDE RECORDS SUMMARY | 2024-02-29 15:51 | XMS_ITS | Encounter Summary ---
Author Organization [facility] [place] [address] Care Team Providers Care Finance Controller Name Role Phone Cl Beltran MD Primary Care Provider Reason for Visit * Reason Comments Results had shunt series tod ay * Auth/Cert Specialty Diagnoses / Procedures Referred By Contac t Referred To Contact Diagnoses Persistent headaches Headache Referral ID Status Reason Start Date Expiration Date Visits Re quested Visits Authorized [id number] 1 1 Encounter Details Date Type Department Care Team (Late st Contact Info) Description 01/13/2017 2:00 PM EST Office Visit [place] [address] Sonia Escalona APRN [facility] [place] [address] S/P SCIENCE INTERPRETER shunt; Persistent headaches Social History Tobacco Use Types Packs/Day Years [...] Sign Reading Time Taken Comments Blood Pressure 124/85 01/13/2017 2:36 PM EST Pulse 90 01/13/2017 2:36 PM EST Temperature - - Respiratory Rate - - Oxygen Saturation - - Inhaled Oxygen Concentration - - Weight 81.6 kg (179 lb 14.3 oz) 01/13/2017 2:36 PM EST Height 165.1 cm (5' 5) 01/13/2017 2:36 PM EST Body Mass Index 29.94 01/13/2017 2:36 PM EST documented in this encounter Progress Notes * Sonia Escalona, COAL SAMPLER - 01/13/2017 2:00 PM EST Name: Chapin Costa : 1970 PCP: Cl Beltran MD REF: Cl Beltran Date of Service: 01/13/2017 History & Physical CHIEF COMPLAINT Referred by PCP IDALIA Aldridge, for evaluation of possible shunt malfunction. 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 He is referred by his PCP after having several weeks of global headache. He has had a head CT on 01/09/2017 and a shunt xray series today. Chapin has had a headache for last 2 weeks. He describes a headache that feels like all over and as says it is a throbbing, vice-like pressure. After more questioning, he said it is worse in forehead and along the right side in parietal area along the track of his SCIENCE INTERPRETER shunt. front - right parietal area with not as much pain on left side or back of head. He has felt slightly nauseated at times over the this time period and has had decreased appetite and has felt very fatigued. He has tried tylenol, ibuprofen without relief. He thinks this is similar to other headaches that he has had before that he felt were related to shunt. He adds that has had light sensitivity and increased pain with upward gaze during the course of this headache. He adds he has been absent-minded and more forgetful than usual and has felt lightheadedwith position changes and has had neck soreness. He reports tenderness at site of shunt when he grover his hair. He denies vision changes, numbness or focal weakness. Chapin has not been on any new medications. He has had a cold and cough 2-3 weeks ago and still has residual stuffiness. He denies fevers or chills. Took over the counter medication like Dayquil and Nyquil. He thinks his current headache is not related to his sinus congestion. He denies urinary incontinence but notes that feels like he has had trouble initiating urination recently and has had to run water to get himself started. He has a history of migraines but they are more in the back of head; he takes elavil for migraine prophylaxis; if he gets a migraine relieves itwith over the counter medication such as ES tylenol or motrin. PAST MEDICAL HISTORY Patient Active Problem List Diagnosis Code ??? S/P SCIENCE INTERPRETER shunt Z98.2 No past medical history on file. No past surgical history on file. ALLERGIES Allergies Allergen Reactions ??? Penicillins ??? Vancomycin Analogues ??? Vancomycin Hcl MEDICATIONS Current Outpatient Prescriptions: ??? cephALEXin (KEFLEX) 500 mg capsule, 500 MG, PO, Three times daily, Disp: , Rfl: ??? carBAMazepine (TEGRETOL XR) 400 mg 12 hr tablet, , Disp: , Rfl: ??? amitriptyline (ELAVIL) 50 mg tablet, , Disp: , Rfl: ??? hydroCODone-acetaminophen (VICODIN) 5-500 mg per tablet, 1-2 Tablet(s), PO, Q4-6H,PRN, Disp: , Rfl: SOCIAL HISTORY Social History Social History ??? Marital status: Spouse name: N/A ??? Number of children: N/A ??? Years of education: N/A Occupational History ??? Not on file. Social History Main Topics ??? Smoking status: Not on file ??? Smokeless tobacco: Not on file ??? Alcohol use Not on file ??? Drug use: Not on file ??? Sexual activity: Not on file Other Topics Concern ??? Not on file Social History Narrative FAMILY HISTORY No family history on file. REVIEW OF SYSTEMS General: Denies recent fever, chills, or weight changes. SEE HPI PHYSICAL EXAM There were no vitals taken for this visit. Constitutional: Well developed, well nourished; looks uncomfortable. Neuro: Mental Status/Cognitive: Awake, alert, answers questions appropriately. Cranial Nerves: CN II - Vision grossly intact, PERRLA. Sluggish reaction to light. Baseline right extropia CN III, IV, - EOM - unable to look up due to pain. CN V - V1-3 dermatomes intact to [...] intact to light touch in all four extremities - decreased sensation overright forehead. Cerebellar: No dysmetria with finger to nose testing bilaterally Gait: Normal gait. Reflexes: DTRs 2+ symmetric throughout. Imaging Reviewed: Shunt series xray 01/13/17: SCIENCE INTERPRETER shunt catheter without evidence of kink or discontinuity. Codman programmable shunt. MRI brain wo contrast 01/07/17: stable appearance of ventricles and sulci and unchanged appearance of SCIENCE INTERPRETER shunt compared to previous exam (2004). Tenderness with light palpation over shunt. 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 He is referred by his PCP after having several weeks of global headache. He has had a head CT on 01/09/2017 and a shunt xray series today which showed essentially unchanged appearance in ventricles and sulci, and Codman programmable SCIENCE INTERPRETER shunt since prior exam. 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 His shunt reservoir refills when depressed, but stops, probably because of small volume of CSF in ventricles. During the period from 9190-9865, which is the last time he was seen by here, he had his valve programmed at varying settings, including 40, 60 and 80. It appears from Dr. Oviedo note in 2007 that his last setting was at 80; at lower settings he developed lower pressure headaches. His shunt seriesxray seems to confirm a setting of 80 or 90. [place] pumped and refilled Currently, it is unclear that Chapin's headache is due to his shunt, but he feels it is similar to other headaches he's had when his shunt needed either revision or reprogramming. His current headache, which he has had for about two weeks has no positional component. He reports a vice-like tightness in the right-parietal area, along the path of shunt as well as pain in front/forehead. He reports sensitivity to light, a sore neck, a throbbing component and some intermittent nausea without vomiting. Chapin does have a history of migraines, but he says this headache differs from his migraines, which are more occipital in location. He also reports increased pain with upward gaze. Chapin says he had a cold, cough two to three weeks ago, before headache and still has some nasal stuffiness. He has had nasal discharge, without fevers. He feels like the cold has resolved and his current headache is not related to sinus pain. Unfortunately, there is no conclusive way to determine if Chapin's shunt is functional or not without invasive monitoring. I consulted with both MARVA Uribe and Dr. Diaz. Dr. Diaz felt itwas reasonable to make a small adjustment upwards to 100 to see if Chapin's symptoms were due to low pressure headache and then to reassess in one week. Plan: Codman shunt adjusted from 80 to 100. Will schedule one week follow up if no resolution of headaches. Referral to headache clinic at for further evalution Reviewed symptoms of increased ICP; Pt will call if he has any concerning symptoms. Sonia Escalona APRN documented in this encounter Procedure Notes * Sonia Escalona APRN - 01/13/2017 2:00 PM ESTProcedure(s): SHUNT REPROGRAM Codman programmed to 100 with auditory confirmation beep. documented in this encounter Plan of Treatment Not on file documented as of this encounter Visit Diagnoses Diagnosis S/P SCIENCE INTERPRETER shunt Presence of cerebrospinal fluid drainage device Persistent headaches Headache documented in this encounter Care Teams Finance Controller Relationship Specialty Start Date End Date Cl Beltran MD PCP - General 01/15/10 02/02/18 documented as of this encounter
--- OUTSIDE RECORDS SUMMARY | 2024-02-29 15:51 | XMS_ITS | Encounter Summary ---
Author Organization [facility] Address [facility] [place] [address] Care Team Providers Care Hoist Operator Name Role Phone Cl Beltran MD Primary Care Provider [phone] Encounter Details Date Type Department Care Team (Latest Contact Info) Description 11/10/2017 - 11/10/2017 12:04 AM EDT Hospital Encounter Radiology Library at [facility] [place] [id number] Helder Oviedo MD [facility] [place] [address] Discharge Disposition: Home Social History Tobacco Use [...] FILM LIBRARY STORAGE ONLY DX SKULL Routine 11/10/2017 12:00 AM EDT documented in this encounter Results * Film Library- Storage Only DX Skull (11/10/2017 12:00 AM EDT) Narrative ANTONIO - 11/10/2017 4:16 PM EDT This exam is for storage only and is auto-finalizing. Helder Oviedo MD IMG FILM LIBRARY ORD ERABLES [place], [place] documented in this encounter Visit Diagnoses Not on filedocumented in this encounter Care Teams Hoist Operator Relationship Specialty Start Date End Date Cl Beltran MD PCP - General 01/15/10 02/02/18 documented as of this encounter
--- OUTSIDE RECORDS SUMMARY | 2024-02-29 15:51 | XMS_ITS | Encounter Summary ---
Author Organization [facility] [place] [address] Care Team Providers Care Manager Ct Name Role Phone Rosario Varela APRN Primary Care Provider [phone] Encounter Details Date Type Department Care Team (Late st Contact Info) Description 04/21/2018 Orders [place] [address] Christianne San Social History Tobacco Use Types Packs/Day Years [...] filedocumented in this encounter Care Teams Manager Ct Relationship Specialty Start Date End Date Rosario Varela APRN [address] [place] [address] PCP - General Family Medicine 02/03/18 09/19/20 documented as of this encounter
--- OUTSIDE RECORDS SUMMARY | 2024-02-29 15:51 | XMS_ITS | Encounter Summary ---
Author Organization [facility] Address [facility] [place] [address] Care Team Providers Care Radio Operator Name Role Phone Rosario Varela APRN Primary Care Provider [phone] Reason for Referral * Physical Therapy (Routine) - Specialty Diagnoses / Procedures Referred By Contnu t Referred To Contact Diagnoses Cervicogenic headache Lul Alvarez MD [facility] [place] [address] Referral ID Status Reason Start Date Expiration Date V isits Requested Visits Authorized [id number] Evaluate and Treat 04/27/2018 10/24/2018 12 12 Encounter Details Date Type Department Care Team (Late st Contact Info) Description 04/27/2018 [place] [address] Lul Alvarez MD Cervicogenic headache Social History Tobacco Use Types Packs/Day Years [...] Referral to Physical Therapy Outpatient Referral Routine Cervicogenic headache Ordered: 04/27/2018 documented as of this encounter Visit Diagnoses Diagnosis Cervicogenic headache Headache documented in this encounter Care Teams Radio Operator Relationship Specialty Start Date End Date Rosario Varela APRN [address] [place] [address] PCP - General Family Medicine 02/03/18 09/19/20 documented as of this encounter
--- OUTSIDE RECORDS SUMMARY | 2024-02-29 15:51 | XMS_ITS | Encounter Summary ---
Author Organization [facility] Address [facility] [place] [address] Care Team Providers Care Engineer Exhauster Name Role Phone Cl Beltran MD Primary Care Provider Reason for Visit * Reason Comments Other ? of shunt complicat ion * Auth/Cert Specialty Diagnoses / Procedures Referred By Contac t Referred To Contact Diagnoses Persistent headaches Headache Referral ID Status Reason Start Date Expiration Date Visits Re quested Visits Authorized [id number] 1 1 Encounter Details Date Type Department Care Team (Latest Contact Info) Description 01/14/2017 5:44 PM EST - 01/19/2017 4:50 PM [facility] Hospital Encounter [address] [place] [id number] Ray Cintron MD [facility] [place] [address] Lul Alvarez MD Lawson, Victoria H, MD [facility] [place] [address] Persistent headaches Discharge Disposition: Home Social History Tobacco Use [...] Sign Reading Time Taken Comments Blood Pressure 140/95 01/19/2017 3:58 PM EST Pulse 101 01/19/2017 3:58 PM EST Temperature 36.4 ??C (97.5 ??F) 01/19/2017 3:58 PM ES T Respiratory Rate 16 01/19/2017 3:58 PM EST Oxygen Saturation 97% 01/19/2017 3:58 PM EST Inhaled Oxygen Concentration - - Weight 78.5 kg (173 lb 1 oz) 01/15/2017 4:34 AM EST Height 165.1 cm (5' 5) 01/15/2017 1:44 AM EST Body Mass Index 28.8 01/15/2017 1:44 AM EST documented in this encounter Discharge Summaries * Rosalee Jaramillo PA - 01/15/2017 4:50 PM EST Discharge Summary Patient Name: Aron Keane Patient Age: 46 y.o. Language: Cuban Race: White Ethnicity: Not nor Admit Date: 01/14/2017 Discharge Date: 01/19/17 Attending Physician: No att. providers found Discharge Physician: No att. providers found Follow-up Recommendations for Providers: Neuro: Started on Gabapentin, Cyclobenzaprine and Medrol dosepack. Inpatient Provider Contact Information: For questions regarding this document or issues related to this hospitalization on the Neurology Service, please contact the author(s) of this discharge summary through the [facility] [facility] [facility] . Discharge Diagnoses (Hospital Problems) and Secondary Diagnoses (Chronic Problems): Primary Diagnosis: Heachache, Neck pain, Cervical spondylosis Secondary Diagnosis: congenital aqueductal stenosis and hydrocephalus, s/p PRODUCT ASSURANCE ENGINEER shunt Active Hospital Problems Diagnosis ??? Headache Resolved Hospital Problems Diagnosis Date Resolved No resolved problems to display. Active Non-Hospital Problems Diagnosis ??? Persistent headaches ??? S/P PRODUCT ASSURANCE ENGINEER shunt History reviewed. No pertinent past medical history. History of Presentation: Aron Keane is a 46 y.o. 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 ?? Has over 40 shunt revisions ?? Has been using ibuprofen, drinks a lot of caffeine but recently cut back a week ago. Typical quality pain similar to his migraines but it is lasting very longer, 3 weeks, which is unusal and it is getting worse. He also reports tenderness along hus neck where his PRODUCT ASSURANCE ENGINEER shunt runs. ?? 3-4 week history for nasal congestion, frontal sinus tenderness, was given keflex for a week which cleared an URI but did nothing for headache. ?? Takes synthroid 25 or 50 mcg per day. Has not been taking any OTC. ?? Went on antibiotics for cold symptoms for. Stopped tweo weeks ago and was on for 1 week. Was on keflex for 1 week and cold symptoms went away but didn't affect headache synmptoms. ?? Physical Exam at Admission Vitals: Temp: [36.5 ??C (97.7 ??F)-36.9 ??C (98.4 ??F)] Heart Rate: [62-100] Resp: [16-20] BP: (122-163)/(77-113) SpO2: [93 %-99 %] Heart Rate from SPO2: [79 bpm-92 bpm] General: alert, NAD HEENT: oral mucosa moist, no thrush, no carotid bruits, no thyromegaly, no lymphadenopathy Heart: RRR S1S2 no murmur Lungs: CTAB symmetric expansion Abd: soft, nontender, nondistended Ext: no edema, adequate pulses Neuro exam: MSE: alert, oriented to person, place, time, situation, follows simple and complex commands, speechfluent with no dysarthria, able to repeat a sentence, names objects. CN: PERRL, B/l esotropia, R LAURA (both baseline),no nystagmus, facial sensation intact, no facial droop or asymmetry, tongue protrudes midline, uvula and palate elevate symmetrically, trap symmetric strength bilaterally Motor: 5/5 RUE 5/5 LUE 5/5 RLE 5/5 LLE Normal bulk and tone Reflexes 2+ bilat biceps, brachioradialis, triceps 2+ bilat patella, achilles downgoing toes Sensation: intact light touch, vibration, proprioception, and temperature diffusely Coordination: intact finger nose finger and JESUS, no dysmetria, no tremor Gait: deferred Tenderness along neck where PRODUCT ASSURANCE ENGINEER shunt runs though no overt erythema or fluctuance. Neck supple. Fundoscopic exam normal: crisp disc b/l with no evidence of papilledema. ?? Hospital Course: Aron Jarrod Keanecheo Keane??is a 46 y.o. 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 CT of the head and neck were done but were unrevealing. LP was done under fluoro; opening pressure was 14 and routine CSF labs were only notable for an elevated protein (likely due to shunt), otherwise unremarkable. CTV and CTA were obtained which showed possible mass effect on his anterior cerebral arteries. Imaging was reviewed by neurosurgery and did not feel the RICK was compressed and/or needed intervention. MRI of the cervical spine showed cervical spondylosis. Headache was treated with a DHE protocol and responded well. Neurosurgery managed the shunt settings and at discharge re-programmed the shunt valve setting to 80mm H2O. He was discharged home with a Medrol dose pack, Gabapentin 100mg TID and Cyclobenzaprine 5mg q8hrs. Operations/Major Procedures: LP under fluoro Consultations 1. Neurosurgery Diagnostic Tests & Neuroimaging: Date Study Results 01/15 ECG Normal sinus rhythm Normal ECG 01/[address] head 11/08/2004 ?? FINDINGS: No acute intracranial hemorrhage. No evidence of interval mass or mass effect. Unchanged position of the shunt. Unchanged ventricular caliber. Extra-axial spaces are normal. Mild scattered sinus mucosal disease. ?? IMPRESSION No acute intracranial hemorrhage. Unchanged ventricular caliber. 01/19 MRI Cervical spine FINDINGS: Overall cervical alignment is unremarkable. There is no focal, aggressive appearing marrow lesion. Cervical cord signal is normal. 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 Shunt catheter is seen running through the superficial soft tissues on the right. ?? There is a simple appearing extradural fluid collection dorsal to the thecal sac extending from C6-C7 inferiorly to the upper thoracic spine. This produces minimal mass effect on the thecal sac. ?? Findings at specific levels: C2-C3: No central canal or foraminal stenosis. There is mild facet arthropathy. ?? C3-C4: Uncovertebral and facet degenerative change produces minimal right foraminal narrowing. No central canal stenosis. ?? C4-C5: There are mild facet degenerative changes with mild right foraminal narrowing. No central canal stenosis. ?? C5-C6: There is a small central disc protrusion mildly indenting the ventral thecal sac and contacting the ventral cord. There are uncovertebral and facet degenerative changes without foraminal stenosis. ?? C6-7: There is a central and right paracentral disc protrusion mildly indenting the ventral thecal sac. There is minimal left foraminal narrowing. ?? C7-T1: No central canal or foraminal stenosis. ?? IMPRESSION ?? 1. Simple appearing dorsal extradural fluid collection in the lower cervical and upper thoracic region. This could be related to recent lumbar puncture. Consider thoracic images to evaluate the extent of the collection is clinically indicated. 2. Mild cervical spine spondylosis. 01/15 CT neck soft tissue w contrast CT of the soft tissues of the neck performed with intravenous contrast. 110 cc of Omnipaque 350 was used ?? COMPARISON: Correlation made with prior CTs of the head, most recent from January 07, 2017; and radiographs ofthe neck, most recent from January 14, 2017 ?? FINDINGS: The tip of the intracranial segment of the right frontal approach PRODUCT ASSURANCE ENGINEER shunt catheter is partially visualized, terminating within the right foramen of Monro. No ventriculomegaly. ?? The extracranial component of the PRODUCT ASSURANCE ENGINEER shunt catheter is visualized from the lateral aspect of the right parietal skull coursing inferiorly to the level of the right temporal bone adjacent to the mastoid air cells, where there is a shunt reservoir. The rest of the catheter courses along the lateral aspect of the right neck just superior to the right sternocleidomastoid muscle and extends inferiorlyover the mid aspect of the right chest wall just medial to the right pectoralis muscle. The superior segment of the known abandoned abandoned shunt catheter projects anterior to the sternum and extends over the left anterior chest wall. There is no fluid collection or notable inflammatory changes around the course of the visualized course of the shunt catheter. ?? The soft tissues of the neck are normal. There is no cervical lymphadenopathy. The parotid and submandibular glands are normal. The nasal, oral and hypopharynx and upper airways are normal. There is normal cervical spine alignment. The visualized intracranial structures are normal. There is minimal dependent atelectasis at the lung apices. ?? IMPRESSION No focal fluid collection or inflammatory changes along the visualized extracranial course of the right PRODUCT ASSURANCE ENGINEER shunt catheter. 01/14 01/19 XR Shunt series 01/14 IMPRESSION PRODUCT ASSURANCE ENGINEER shunt catheter without evidence of kink or discontinuity, unchanged compared to prior from 01/13/2017. 01/19 IMPRESSION FINDINGS and impression: Codman valve settin mm H2o 01/19 CT Venogram ??IMPRESSION No evidence of venous thrombosis. 01/19 CT Carotids, COW FINDINGS: Partially imaged lung apices are unremarkable. Review of bone windows is unremarkable. ?? Normal configuration of the great vessels which are widely patent. Subclavian arteries are normal. ?? Right common carotid artery is normal in course and caliber. Trace focal stenosis of the right ICA origin. Right ICA is otherwise normal. ?? Left common carotid artery is normal in course and caliber. Normal cervical left ICA. ?? Right vertebral artery is normal in course and caliber. ?? Left vertebral artery is normal in course and caliber. ?? Intracranial vasculature: No evidence of significant stenosis, vascular thrombosis, or aneurysm. The right frontal approach ventricular shunt catheter is immediately adjacent to the anterior cerebralarteries and demonstrates slight mass effect on them.. ?? IMPRESSION No hemodynamically significant stenosis or vascular thrombosis. Shunt catheter immediately adjacentto the anterior cerebral arteries. Labs: Results for ARON KEANE ( ) as of 01/19/2017 16:19 Ref. Range 01/16/2017 15:20 Tube Num CSF #1 Unknown 1 Color CSF #1 Unknown Straw Appear CSF #1 Latest Ref Range: Clear Clear Tot Vol CSF #1 Latest Units: mL 4.0 Tube Num CSF #2 Unknown 2 Color CSF #2 Latest Ref Range: Colorless Yellow Appear CSF #2 Latest Ref Range: Clear Clear Tot Vol CSF #2 Latest Units: mL 4.0 Tube Num CSF #3 Unknown 3 Color CSF #3 Unknown Straw Appear CSF #3 Latest Ref Range: Clear Clear Tot Vol CSF #3 Latest Units: mL 4.0 Tube Num CSF #4 Unknown 4 Color CSF #4 Unknown Straw Appear CSF #4 Latest Ref Range: Clear Clear Tot Vol CSF #4 Latest Units: mL 4.0 Tube # Ct CSF Unknown [address] Latest Ref Range: 0 - 5 /mcl [address] Latest Units: /mcl 0 Glucose, CSF Latest Units: mg/dL 62 T Protein, CSF Latest Ref Range: 15 - 45 mg/dL 263 (H) Xanthochromia Unknown Slight Results for ARON KEANE ( ) as of 01/19/2017 16:19 Ref. Range 01/16/2017 CSF CULTURE Unknown Rpt Enterovirus PCR, Qualitative Latest Ref Range: Negative Negative HSV-1 PCR Latest Ref Range: Not Detected Not Detected HSV-2 PCR Latest Ref Range: Not Detected Not Detected HSV Source Unknown CSF UA - unremarkable TSH 3.37 CRP 2.6 WNL CBZ level 6.7 (low) Pending Studies and Lab Data: The patient will need the following 3 tests completed on: 01/14/2017 1. Miscellaneous Lab request 3. IgG Index CSF 2. Oligoclonal Banding CSF Diagnosis: Authorizing Provider: Lul Alvarez MD Vital Signs at Discharge: BP: (!) 140/95, Heart Rate: 101, Temp: 36.4 ??C (97.5 ??F), Resp: 16, BMI (Calculated): 28.8 Height: 165.1 cm (5' 5) (01/15/17 0144) Weight - Scale: 78.5 kg (173 lb 1 oz) (01/15/17 0434) Functional and Cognitive Status: Stable Physical Exam at Discharge: General: alert, NAD HEENT: oral mucosa moist, no thrush, no carotid bruits, no thyromegaly, no lymphadenopathy, multiple well healed surgical scars noted on scalp. Decreased rom of motion of c-spine to the left and right. Shunt can be palpated along left side of neck with minimal tenderness noted. No erythema or fluctuance noted. Point tenderness and paraspinal tenderness noted on midline cervical neck Heart: Regular rate, S1, S2 no murmur, gallops, or rubs appreciated Lungs: CTAB, good respiratory effort Abd: soft, nontender, nondistended Ext: no edema; pain down right arm with palpation of C-spine Neuro exam: ?MSE: alert, oriented to person, place, time, situation, follows simple and complex commands, speech fluent with no dysarthria, able to repeat a sentence,names objects. ?CN: PERRL, ??B/l esotropia, R LAURA (both baseline),no nystagmus, ??facial sensation intact, no facial droop or asymmetry, tongue protrudes midline, uvula and palate elevate symmetrically, trap symmetric strength bilaterally ?Motor: ??5/5 RUE ?5/5 LUE ?5/5 RLE ?5/5 LLE ?Normal bulk and tone ?Reflexes ?2+ bilat biceps, brachioradialis, triceps ?2+ bilat patella, achilles ?downgoing toes ?Sensation: intact light touch and temperature diffusely; slightly decreased to pinprick on distal right arm. ?Coordination: intact finger nose finger and JESUS, no dysmetria, no tremor ?Gait: deferred Discharge Conditions/Prognosis: Stable Discharge to: Home Updated Allergies/ADRs: Allergies Allergen Reactions ??? Penicillins ??? Vancomycin Analogues ??? Vancomycin Hcl Immunizations Given this Hospitalization: There is no immunization history on file for this patient. Discharge Medications: Your Medications Notice Some of the medications listed here do not show instructions, such as how often to take the medication. Ask your doctor or nurse how to use these medications. Specifically ask about these and similar medications: - carBAMazepine (TEGRETOL XR) 400 mg 12 hr tablet - amitriptyline (ELAVIL) 50 mg tablet New Medications Dose Details cyclobenzaprine 5 mg Tab Commonly known as: FLEXERIL Take 1 tablet by mouth every 8 hours as needed for Muscle spasms. 5 mg Quantity: 30 tablet Refills: 0 gabapentin 100 mg Cap Commonly known as: NEURONTIN Take 1 capsule by mouth 3 times daily. 100 mg Quantity: 90 capsule Refills: 3 methylPREDNISolone 4 mg Dspk Commonly known as: MEDROL DOSPACK Use as directed on product package. Quantity: 21 tablet Refills: 0 Continued medications, unchanged Dose Details amitriptyline 50 mg Tab Commonly known as: ELAVIL ?nk?wn!?? Refills: 0 gemfibrozil 600 mg Tab Commonly known as: LOPID Take 600 mg by mouth 2 times daily (before meals). 600 mg Refills: 0 SYNTHROID 100 mcg Tab Take 50 mcg by mouth daily. Generic drug: levothyroxine 50 mcg Refills: 0 TEGretol XR 400 mg Tb12 ?nk?wn!?? Generic drug: carBAMazepine Refills: 0 TESTOSTERONE CYPIONATE IM Inject into the muscle every 14 days. Refills: 0 Smoking Status at Discharge: History Smoking Status ??? Never Smoker Smokeless Tobacco ??? Never Used Instructions Given to Patient at Discharge: Patient Instructions You were admitted to the neurology service at [facility]. Your diagnosis: Headache, neck pain Medication Changes: NEW: ?? Medrol Dosepack- follow instructions ?? Gabapentin 100mg three times daily. ?? Cyclobenzaprine 5mg every 8hrs as needed for neck pain No other medication changes. Patient Instructions: ??? Call your doctor or seek medical attention if you have ??? weakness or numbness in your face or one of your limbs or difficulty speaking ??? loss of vision ??? seizures or loss of consciousness ??? Diet: we recommend a heart healthy diet: low fat, low cholesterol, low concentrated sweets. ??? Activity Restrictions: None ??? Driving Restrictions: None ??? Home oxygen therapy: none needed ??? Anticoagulation Follow-up and Instructions: none FOLLOWUP APPOINTMENT: You will have an outpatient followup appointment in the neurology clinic at [facility]. If not already listed in this document, we will contact you to schedule this appointment. -- If 1 week passes by after you are discharged and you still do not have an appointment, please call [phone]. Future Appointments and Orders Future Appointments Provider Department Dept Phone 01/22/2017 9:30 AM Cl Atkins PA [facility] [phone] 03/02/2017 1:30 PM Cody Patel MD [facility] [phone] General Instructions None Future Appointments and Orders Future Appointments Provider Department Dept Phone 01/22/2017 9:30 AM Cl Atkins PA [facility] [phone] 03/02/2017 1:30 PM Cody Patel MD [facility] [phone] Future Appointments Date Time Provider Department Center 01/22/2017 9:30 AM Cl Atkins PA [facility] 03/02/2017 1:30 PM Cody Patel MD [facility] Primary Care Provider: Cl Beltran MD [address] [facility] [id number] Discharge References/Attachments None documented in this encounter Discharge Instructions * Patient Instructions* Rosalee Jaramillo PA - 01/19/2017 3:57 PM EST You were admitted to the neurology service at [facility]. Your diagnosis: Headache, neck pain Medication Changes: NEW: ?? Medrol Dosepack- follow instructions ?? Gabapentin 100mg three times daily. ?? Cyclobenzaprine 5mg every 8hrs as needed for neck pain No other medication changes. Patient Instructions: ??? Call your doctor or seek medical attention if you have ??? weakness or numbness in your face or one of your limbs or difficulty speaking ??? loss of vision ??? seizures or loss of consciousness ??? Diet: we recommend a heart healthy diet: low fat, low cholesterol, low concentrated sweets. ??? Activity Restrictions: None ??? Driving Restrictions: None ??? Home oxygen therapy: none needed ??? Anticoagulation Follow-up and Instructions: none FOLLOWUP APPOINTMENT: You will have an outpatient followup appointment in the neurology clinic at [facility]. If not already listed in this document, we will contact you to schedule this appointment. -- If 1 week passes by after you are discharged and you still do not have an appointment, please call [phone]. Future Appointments and Orders Future Appointments Provider Department Dept Phone 01/22/2017 9:30 AM Cl Atkins PA [facility] [place] [phone] 03/02/2017 1:30 PM Cody Patel MD [facility] [phone] documented in this encounter Medications at Time [...] 06/17/2006 05/20/2018 documented as of this encounter Progress Notes * Veronica Yang MD - 01/19/2017 3:04 PM EST Neurology Progress Note Patient Name: Aron Keane Admit Date: 01/14/2017 Attending: Veronica Yang MD Patient ID: Aron Keane is a 46 y.o. 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 He is currently being evaluated for a headache lasting about 3 weeks and some associated neck pain. Active Hospital Problems Diagnosis ??? Headache Resolved Hospital Problems Diagnosis Date Resolved No resolved problems to display. Interval History: DHE started CT not obtained Subjective: -Headache much improved with DHE -Now c/o severe posterior neck pain that resolves somewhat with massage and has associated pain down right arm -Otherwise no acute events overnight Medications: ??? dihydroergotamine 1 mg Intravenous Q8H And ??? diphenhydrAMINE 25 mg Oral Q8H And ??? metoclopramide 10 mg Intravenous Q8H ??? amitriptyline 100 mg Oral Nightly ??? carBAMazepine 600 mg Oral QAM ??? gemfibrozil 600 mg Oral BID AC ??? levothyroxine 50 mcg Oral QAM ??? carBAMazepine 400 mg Oral QPM ??? sodium chloride 0.9 % 5 mL Intravenous BID ??? enoxaparin 40 mg Subcutaneous Nightly Physical Exam: Afebrile, BP slightly elevated at times with systolics in the 150s-160s Vitals: Temp: [36.1 ??C (97 ??F)-36.9 ??C (98.4 ??F)] Heart Rate: [71-92] Resp: [18] BP: (127-152)/(84-92) SpO2: [93 %-96 %] Heart Rate from SPO2: [97 bpm] General: alert, NAD HEENT: oral mucosa moist, no thrush, no carotid bruits, no thyromegaly, no lymphadenopathy, multiple well healed surgical scars noted on scalp. Decreased rom of motion of c-spine to the left and right. Shunt can be palpated along left side of neck with minimal tenderness noted. No erythema or fluctuance noted. Point tenderness and paraspinal tenderness noted on midline cervical neck Heart: Regular rate, S1, S2 no murmur, gallops, or rubs appreciated Lungs: CTAB, good respiratory effort Abd: soft, nontender, nondistended Ext: no edema; pain down right arm with palpation of C-spine Neuro exam: MSE: alert, oriented to person, place, time, situation, follows simple and complex commands, speechfluent with no dysarthria, able to repeat a sentence, names objects. CN: PERRL, B/l esotropia, R LAURA (both baseline),no nystagmus, facial sensation intact, no facial droop or asymmetry, tongue protrudes midline, uvula and palate elevate symmetrically, trap symmetric strength bilaterally Motor: 5/5 RUE 5/5 LUE 5/5 RLE 5/5 LLE Normal bulk and tone Reflexes 2+ bilat biceps, brachioradialis, triceps 2+ bilat patella, achilles downgoing toes Sensation: intact light touch and temperature diffusely; slightly decreased to pinprick on distal right arm. Coordination: intact finger nose finger and JESUS, no dysmetria, no tremor Gait: deferred Labs: No results found for this or any previous visit (from the past 24 hour(s)). Diagnostic Tests and Imaging: CT Head w/o Contrast 01/14 FINDINGS: No acute intracranial hemorrhage. No evidence of interval mass or mass effect. Unchanged position of the shunt. Unchanged ventricular caliber. Extra-axial spaces are normal. Mild scattered sinus mucosal disease. ?? IMPRESSION No acute intracranial hemorrhage. Unchanged ventricular caliber. CT Neck Soft Tissue 01/15 IMPRESSION No focal fluid collection or inflammatory changes along the visualized extracranial course of the right PRODUCT ASSURANCE ENGINEER shunt catheter. CTA 01/16 IMPRESSION No hemodynamically significant stenosis or vascular thrombosis. Shunt catheter immediately adjacent to the anterior cerebral arteries. CT Venogram 01/16 IMPRESSION No evidence of venous thrombosis. MRI C-Spine 01/19 Formal read pending, but informal read shows evidence of cervical disc extrusion Assessment and Plan: Aron Keane is a 46 y.o. 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 The shunt placement has been complicated by multiplerevisions, but pt has not seen a neurosurgeon in 10 or 12 years. Pt also has h/o epilepsy treated with tegretol and migraines treated with amitriptyline. Was seen in clinic by Neurosurgery on 01/13 who assessed his shunt, raised his pressure and ordered a shunt series. As he continues to complain of a headache, magnesium sulfate and Toradol have been tried thus far with some minor relief of his headache at times (06/02). Toradol was scheduled with atarax prn and that seemed to help with his headache at times. He also continues to endorse neck pain and decreased range of motion of his neck which he feels is different from his baseline. CT head and CT neck were done and did not elucidate a cause. LP was initially attempted at bedside to rule out meningitis, but was unsuccessful. Opening pressure was 14 on the LP. CTV and CTA was obtained which showed possible mass effect on his anterior cerebral arteries. However, the patient's neurological exam remains stable. The patient continues to endorse neck pain. MRI C-spine shows what looks like cervical disc extrusion, but formal read is pending. However, this would explain his neck pain and radiation of pain to right arm. Neurosurgery will reassess shunt valves after MRI and may lower settings back to 80 (from 100), which may help with headache. PLAN -LP with opening pressure and CSF studies - completed -CT neck w/wo - completed with results above -Shunt series-COMPLETED AND NORMAL -Continue all home meds -synthroid 50 mcg /day -gemfibrozil -tegretol 600 / 400 -amitriptyline 100 mg QHS -continue all home medicatons -magnesium IV prn -tylenol prn -toradol q6H prn -Modified Nam Protocol -Benedryl 25 mg po, followed in 1 hour by -Metoclopromide 10 mg iv, followed in 15 minutes by -Dihydroergotamine 0.5-1 mg iv TID, titrate to maximal subnauseating dose -atarax 10 mg TID for anxiety/headache - to be given with scheduled toradol -F/u MRI C spine -lovenox for dvt ppx Diet: Regular diet ?? Code Status: FULL CODE Aron Velazquez MD PGY-1 General Neurology Team Pager #[phone] 01/19/17 ATTENDING NOTE: I reviewed the pertinent aspects of the history with the patient and agree with the history as outlined in the resident's note. I repeated the pertinent aspects of the physical examination and agree with it as documented in the resident's note. I reviewed the impression and plan with the resident and agree with it as documented. Veronica Yang MD Attending Physician Neuromuscular Medicine & Clinical Neurophysiology * Nighat Vuong RN - 01/19/2017 3:02 PM EST A/Ox4. Neurologically intact. Up in the room and around unit independently. Good PO intake. Had MRIthis morning. MD Bee reprogrammed PRODUCT ASSURANCE ENGINEER shunt this afternoon, xrays completed. Pain well controlledwith DHE and toradol. Resting in bed between care. Safety maintained. Aron Keane discharged to home by car with . All belongings sent with patient. ADAM removed, skin free from pressure ulcers. Discharge instructions, medications, and follow-up appointmentsreviewed, education provided on when to seek medical attention, paper prescriptions given to patient , all questions answered. Patient instructed to call with concerns. * Justin Gastelum MD - 01/18/2017 7:08 AM EST Neurology Progress Note Patient Name: Aron Keane Admit Date: 01/14/2017 Attending: Veronica Yang MD Patient ID: Aron Keane is a 46 y.o. 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 He is currently being evaluated for a headache lasting about 3 weeks and some associated neck pain. Active Hospital Problems Diagnosis ??? Headache Resolved Hospital Problems Diagnosis Date Resolved No resolved problems to display. Interval History: DHE started CT not obtained Subjective: Patient initially woke up with a 4 out of 10 headache this morning. Notes that when he started to move around headache increases 7-8/10 and has remained there since. Noted he was slightly uncomfortable with the fact that he was sleeping all afternoon. Showed him that this is part of the DHD that heis on. Also continues to endorse neck pain which is slightly better than yesterday at an 8/10. Believes that he needs to have his valve evaluated by neurosurgery as he believes the pressure is too high. States that the pain down his arms is no longer apparent. Medications: ??? diphenhydrAMINE 25 mg Oral Q8H And ??? metoclopramide 10 mg Intravenous Q8H And ??? dihydroergotamine 0.5 mg Intravenous Q8H ??? amitriptyline 100 mg Oral Nightly ??? carBAMazepine 600 mg Oral QAM ??? gemfibrozil 600 mg Oral BID AC ??? levothyroxine 50 mcg Oral QAM ??? carBAMazepine 400 mg Oral QPM ??? sodium chloride 0.9 % 5 mL Intravenous BID ??? enoxaparin 40 mg Subcutaneous Nightly Physical Exam: Afebrile, BP slightly elevated at times with systolics in the 150s-160s Vitals: Temp: [36.2 ??C (97.2 ??F)-36.8 ??C (98.2 ??F)] Heart Rate: [64-88] Resp: [12-16] BP: (114-150)/(83-101) SpO2: [94 %-97 %] Heart Rate from SPO2: -- General: alert, NAD HEENT: oral mucosa moist, no thrush, no carotid bruits, no thyromegaly, no lymphadenopathy, multiple well healed surgical scars noted on scalp. Decreased rom of motion to the the left and right (patient states this is worse than his baseline and was worse than my previous exam today). Shunt can be palpated along left side of neck with minimal tenderness noted. No erythema or fluctuance noted. Point tenderness noted on midline cervical neck (less tender today than yesterday) Heart: Regular rate, S1, S2 no murmur, gallops, or rubs appreciated Lungs: CTAB, good respiratory effort Abd: soft, nontender, nondistended Ext: no edema, Neuro exam: MSE: alert, oriented to person, place, time, situation, follows simple and complex commands, speechfluent with no dysarthria, able to repeat a sentence, names objects. CN: PERRL, B/l esotropia, R LAURA (both baseline),no nystagmus, facial sensation intact, no facial droop or asymmetry, tongue protrudes midline, uvula and palate elevate symmetrically, trap symmetric strength bilaterally Motor: 5/5 RUE 5/5 LUE 5/5 RLE 5/5 LLE Normal bulk and tone Reflexes 2+ bilat biceps, brachioradialis, triceps 2+ bilat patella, achilles downgoing toes Sensation: intact light touch and temperature diffusely Coordination: intact finger nose finger and JESUS, no dysmetria, no tremor Gait: deferred Labs: No results found for this or any previous visit (from the past 24 hour(s)). Diagnostic Tests and Imaging: CT Head w/o Contrast 01/14 FINDINGS: No acute intracranial hemorrhage. No evidence of interval mass or mass effect. Unchanged position of the shunt. Unchanged ventricular caliber. Extra-axial spaces are normal. Mild scattered sinus mucosal disease. ?? IMPRESSION No acute intracranial hemorrhage. Unchanged ventricular caliber. CT Neck Soft Tissue 01/15 IMPRESSION No focal fluid collection or inflammatory changes along the visualized extracranial course of the right PRODUCT ASSURANCE ENGINEER shunt catheter. CTA 01/16 IMPRESSION No hemodynamically significant stenosis or vascular thrombosis. Shunt catheter immediately adjacent to the anterior cerebral arteries. CT Venogram 01/16 IMPRESSION No evidence of venous thrombosis. Assessment and Plan: Aron Keane is a 46 y.o. 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 Was seen in clinic by Neurosurgery on 01/13 who assessed his shunt, raised his pressure and ordered a shunt series. As he continues to complain of a headache, magnesium sulfate and Toradol have been tried thus far with some minor relief of his headache at times (4/10). Toradol was scheduled with atarax prn and that seemed to help with his headache at times. He also continues to endorse neck pain and decreased range of motion of his neck which he feels is different from his baseline. CT head and CT neck were done and did not elucidate a cause. LP was initially attempted at bedside to rule our meningitis, but was unsuccessful. Opening pressure was 14 on the LP. CTV and CTA was obtained which showed possible mass effect on his anterior cerebral arteries. However, the patient's neurological exam remains stable. The patient continues to endorse neck pain which was an 8/10 today. He was initially worried about how much he was sleeping but I assured him that was the effect of the modified nam protocol. CT cervical spine was ordered but changed to MRI cervical spine as per radiology's recommendations. As per the patient, he was told he could not get an MRI because of the magnetic portion of his valve. This may have to be sorted out as we continue to treat the patient's headache. May also consider re-engaging neurosurgery to lower his pressure to see if that will help his headache. Will continue treatment as below: ?? PLAN: Continue floor level of care -LP with opening pressure and CSF studies - completed -CT neck w/wo - completed with results above -Shunt series-COMPLETED AND NORMAL -Continue all home meds -synthroid 50 mcg /day -gemfibrozil -tegretol 600 / 400 -amitriptyline 100 mg QHS -continue all home medicatons -magnesium IV prn -tylenol prn -toradol q6H prn -Modified Nam Protocol -Benedryl 25 mg po, followed in 1 hour by -Metoclopromide 10 mg iv, followed in 15 minutes by -Dihydroergotamine 0.5-1 mg iv TID, titrate to maximal subnauseating dose -atarax 10 mg TID for anxiety/headache - to be given with scheduled toradol -CT cervical spine - changed to MRI cervical spine -lovenox for dvt ppx Diet: Regular diet ?? Code Status: FULL CODE Justin Gastelum MD Neurology Resident - PGY-2 General Neurology Team Pager #[phone] 01/18/17 Associated attestation - Rishi Hagan Jr., MD - 01/19/2017 7:00 AM EST I have seen the patient and reviewed the resident's above history and I agree with the details as written. The assessment and plan were formulated in discussion with me and I agree with them as documented. Neck pain a little better today, arm symptom seem to have resolved. Will treat ALICEA with DHE. * Kirstie Castillo RN - 01/17/2017 7:47 PM EST Assessed complaints of pain during PIV medication push earlier. Pt denies pain, unable to reproducepain with saline flush. Pt agrees to leave PIV in place and he was instructed to notify primary RN is he experiences any further episodes of pain during IV infusions or medications pushes. * Justin Gastelum MD - 01/16/2017 7:15 PM EST Neurology Progress Note Patient Name: Aron Keane Admit Date: 01/14/2017 Attending: Veronica Yang MD Patient ID: Aron Keane is a 46 y.o. 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 He is currently being evaluated for a headache lasting about 3 weeks and some associated neck pain. Active Hospital Problems Diagnosis ??? Headache Resolved Hospital Problems Diagnosis Date Resolved No resolved problems to display. Interval History: LP completed: Nucleated cells: 3 / RBC CSF: 0 / Glucose CSF: 62 / T Protein CSF: 263 / Xanthochromia: slight Enterovirus negative CSF Culture: WBC seen, no organisms HSV 1 and 2: not detected Subjective: Continues to have headache but was down to 3/10 this morning. Is not sure of which regimen has helped him thus far. Does note that he had a restful night otherwise. Headache is still the same in character and location. Continues to endorse photophobia and sensitivity to noises. Also notes a little bit of dizziness upon standing to use the restroom this morning. Medications: ??? ketorolac 30 mg Intravenous Q6H DAMIEN ??? amitriptyline 100 mg Oral Nightly ??? carBAMazepine 600 mg Oral QAM ??? gemfibrozil 600 mg Oral BID AC ??? levothyroxine 50 mcg Oral QAM ??? carBAMazepine 400 mg Oral QPM ??? sodium chloride 0.9 % 5 mL Intravenous BID ??? enoxaparin 40 mg Subcutaneous Nightly Physical Exam: Afebrile, BP slightly elevated at times with systolics in the 150s-160s Vitals: Temp: [36 ??C (96.8 ??F)-36.7 ??C (98.1 ??F)] Heart Rate: -- Resp: [16-18] BP: (97-151)/(63-95) SpO2: [94 %-97 %] Heart Rate from SPO2: [68 bpm-87 bpm] General: alert, NAD HEENT: oral mucosa moist, no thrush, no carotid bruits, no thyromegaly, no lymphadenopathy, multiple well healed surgical scars noted on scalp. Decreased rom of motion to the the left and right (patient states this is worse than his baseline and was worse than my previous exam today). Shunt can be palpated along left side of neck with minimal tenderness noted. No erythema or fluctuance noted. Point tenderness noted on midline cervical neck Heart: Regular rate, S1, S2 no murmur, gallops, or rubs appreciated Lungs: CTAB, good respiratory effort Abd: soft, nontender, nondistended Ext: no edema, Neuro exam: MSE: alert, oriented to person, place, time, situation, follows simple and complex commands, speechfluent with no dysarthria, able to repeat a sentence, names objects. CN: PERRL, B/l esotropia, R LAURA (both baseline),no nystagmus, facial sensation intact, no facial droop or asymmetry, tongue protrudes midline, uvula and palate elevate symmetrically, trap symmetric strength bilaterally Motor: 5/5 RUE 5/5 LUE 5/5 RLE 5/5 LLE Normal bulk and tone Reflexes 2+ bilat biceps, brachioradialis, triceps 2+ bilat patella, achilles downgoing toes Sensation: intact light touch and temperature diffusely Coordination: intact finger nose finger and JESUS, no dysmetria, no tremor Gait: deferred Labs: Recent Results (from the past 24 hour(s)) Prothrombin Time Result Value Ref Range PT 13.4 11.8 - 14.0 sec INR 1.0 0.9 - 1.1 APTT Result Value Ref Range PTT 29 25 - 35 sec Hemogram Result Value Ref Range WBC 8.1 4.0 - 9.5 x10(3)/mcL RBC 4.91 4.58 - 5.54 x10(6)/mcL Hemoglobin 15.5 13.7 - 16.5 gm/dL Hematocrit 45.7 40.5 - 48.5 % MCV 93.1 82.9 - 93.1 fL MCH 31.6 27.5 - 32.1 pg MCHC 33.9 32.0 - 35.7 gm/dL Platelets 276 145 - 357 x10(3)/mcL RDWSD 40.3 36.0 - 45.0 fL RDWCV 11.8 11.4 - 13.8 % MPV 8.9 7.6 - 12.9 fL nRBC % Auto 0.0 % nRBC Abs Auto 0.000 0.000 - 0.000 x10(3)/mcL Differential, Automated Result Value Ref Range Neutrophils % 61.0 % Neutr Abs (ANC) 4.92 1.70 - 6.10 x10(3)/mcL Lymphocytes % 28.7 % Lymphocytes Abs 2.3 0.9 - 3.2 x10(3)/mcL Monocytes % 6.7 % Monocyte Abs 0.5 0.3 - 0.9 x10(3)/mcL Eosinophils % 2.8 % Eosinophils Abs 0.2 0.0 - 0.4 x10(3)/mcL Basophils % 0.6 % Basophils Abs 0.0 0.0 - 0.1 x10(3)/mcL Immature Gran % 0.20 % Ute Gran Abs 0.02 0.00 - 0.04 x10(3)/mcL Protein Level CSF Result Value Ref Range T Protein, CSF 263 (H) 15 - 45 mg/dL Xanthochromia Slight Glucose Level CSF Result Value Ref Range Glucose, CSF 62 mg/dL CSF Culture Result Value Ref Range Gram Stain White Blood Cells seen No microorganisms seen. HSV 1 and 2 PCR Result Value Ref Range HSV-1 PCR Not Detected Not Detected HSV-2 PCR Not Detected Not Detected HSV Source CSF CSF DESC 1 Result Value Ref Range Tube Num CSF #1 1 Color CSF #1 Straw Appear CSF #1 Clear Clear Tot Vol CSF #1 4.0 mL CSF DESC 2 Result Value Ref Range Tube Num CSF #2 2 Color CSF #2 Yellow Colorless Appear CSF #2 Clear Clear Tot Vol CSF #2 4.0 mL CSF DESC 3 Result Value Ref Range Tube Num CSF #3 3 Color CSF #3 Straw Appear CSF #3 Clear Clear Tot Vol CSF #3 4.0 mL CSF DESC 4 Result Value Ref Range Tube Num CSF #4 4 Color CSF #4 Straw Appear CSF #4 Clear Clear Tot Vol CSF #4 4.0 mL CSF Cell Count Result Value Ref Range Tube # Ct CSF [address] 3 0 - 5 /mcl RBC CSF CT 0 /mcl Diagnostic Tests and Imaging: CT Head w/o Contrast 01/14 FINDINGS: No acute intracranial hemorrhage. No evidence of interval mass or mass effect. Unchanged position of the shunt. Unchanged ventricular caliber. Extra-axial spaces are normal. Mild scattered sinus mucosal disease. ?? IMPRESSION No acute intracranial hemorrhage. Unchanged ventricular caliber. CT Neck Soft Tissue 01/15 IMPRESSION No focal fluid collection or inflammatory changes along the visualized extracranial course of the right PRODUCT ASSURANCE ENGINEER shunt catheter. CTA 01/16 IMPRESSION No hemodynamically significant stenosis or vascular thrombosis. Shunt catheter immediately adjacent to the anterior cerebral arteries. CT Venogram 01/16 IMPRESSION No evidence of venous thrombosis. Assessment and Plan: Aron Keane is a 46 y.o. 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 Was seen in clinic by Neurosurgery on 01/13 who did not feel like this was a shunt issue based on exam and normal shunt series performed. Exam remains reassuring. Current headache appears to be similar to his previous pre-shunt revision headaches as per him. He, however, continues to have photophobia and aversion to loud noises. Magnesium sulfate and Toradol have been tried thus far with some minor relief of headache (4/10). Toradol was scheduled with atarax prn and that seemed to help with his headache at times. He also continues to endorse neck pain and decreased range of motion of his neck which he feels is different from his baseline. CT head and CT neck were done and did not elucidate a cause. LP was initially attempted atbedside to rule our meningitis, but was unsuccessful. Opening pressure was 14 on the LP. CTV and CTA was obtained which showed possible mass effect on his anterior cerebral arteries. However, the patient's neurological exam remains stable. During the team's assessment this morning, the patient endorsed 10/10 neck pain. Although he already had CT neck soft tissue, we opted to obtain a CT cervical spine as he also described some numbnessand tingling down his bilateral arms. Although we considered DHE as we were going to treat this as a migraine, this may be a low pressure headache instead. He was started on caffeine and given a bolus to see if that would help symptoms. Will follow up with him later in the day. ?? PLAN: Continue floor level of care -LP with opening pressure and CSF studies - completed -CT neck w/wo - completed with results above -Shunt series-COMPLETED AND NORMAL -Continue all home meds -synthroid 50 mcg /day -gemfibrozil -tegretol 600 / 400 -amitriptyline 100 mg QHS -continue all home medicatons -magnesium IV prn -tylenol prn -toradol q6H scheduled -Will add atarax 10 mg TID for anxiety/headache - to be given with scheduled toradol -If above toradol is not beneficial then we may try DHE if all other CSF studies are unrevealing -IVF with bolus to be given this morning -Caffeine to be administered this am -CT cervical spine -lovenox for dvt ppx Diet: Regular diet ?? Code Status: FULL CODE Justin Gastelum MD Neurology Resident - PGY-2 General Neurology Team Pager #[phone] 01/16/17 Associated attestation - Rishi Hagan Jr., MD - 01/17/2017 3:51 PM EST I have seen the patient and reviewed the resident's above history and I agree with the details as written. The assessment and plan were formulated in discussion with me and I agree with them as documented. Symptoms have changed this am to neck/shoulder pain with paraesthesias extending radha both UE (?ulnar/lower cervical distribution). CSF yesterday was notable for very elevated protein, otherwise OK; this may reflect his shunting, but spinal stenosis is another explanation. On exam cervical compression seems to reproduce his BUE symptoms, suggesting foraminal stenosis, perhaps cervical cancal stenos is. Cervical ROM reduced concenring for meningitis but he has been afebrile. Will get CT c-spine for concern for ?hematoma after LP yesterday. Will have low threshold for repeat CSF exam if he deteriorates or appears infected. Symptoms might also reflect low pressures (there is a positional component) and will give IVF to see if this helps with symptoms. We were considering DHE for ongoing migraine but will hold off on this for the moment. * Camron Cristina - 01/16/2017 10:24 AM EST PRE-PROCEDURE NOTE PCP: Cl Beltran MD Referring Physician (if different): No ref. provider found Indication: Headache Planned Procedure: Fluoroscopically-guided lumbar puncture Presenting Diagnosis/Complaint: Aron Keane is a 46 y.o. male whom based on chart review has a PMH of congenital aqueductalstenosis s/p PRODUCT ASSURANCE ENGINEER shunt placement with multiple revisions as well as a h/o epilepsy now presenting with headache symptoms (similar in quality to his migraines) lasting 3 weeks in duration and worseningin nature. He was seen by Neurosurgery on 01/14, who stated that they do not believe his presentation is due to a shunt malfunction. Accessing the shunt was advised against due to the infection risk.Bedside lumbar puncture attempt was unsuccessful per Neurology. PMH, PSH, Medications, Outpatient Prescriptions, Allergies, Social History and Family History beloware obtained as per patient's medical record. Pertinent Past Medical/Surgical History: Patient Active Problem List Diagnosis Code ??? S/P PRODUCT ASSURANCE ENGINEER shunt Z98.2 ??? Persistent headaches R51 ??? Headache R51 History reviewed. No pertinent past medical history. History reviewed. No pertinent surgical history. Medications: No current facility-administered medications on file prior to encounter. Current Outpatient Prescriptions on File Prior to Encounter Medication Sig Dispense Refill ??? TESTOSTERONE CYPIONATE IM Inject into the muscle every 14 days. ??? gemfibrozil (LOPID) 600 mg Tablet Take 600 mg by mouth 2 times daily (before meals). ??? carBAMazepine (TEGRETOL XR) 400 mg 12 hr tablet ??? amitriptyline (ELAVIL) 50 mg tablet Current Facility-Administered Medications: ??? amitriptyline (ELAVIL) tablet 100 mg, 100 mg, Oral, Nightly, Cody Patel MD, 100 mg at 01/15/172016 ??? carBAMazepine (TEGretol XR) SR tablet 600 mg, 600 mg, Oral, QAM, Cody Patel MD, 600 mg at103/18/16 0614 ??? gemfibrozil (LOPID) tablet 600 mg, 600 mg, Oral, BID AC, Cody Patel MD, 600 mg at 01/16/17 0752 ??? levothyroxine (SYNTHROID) tablet 50 mcg, 50 mcg, Oral, QAM, Cody Patel MD, 50 mcg at 01/16/17 0615 ??? carBAMazepine (TEGretol) tablet 400 mg, 400 mg, Oral, QPM, Cody Patel MD, 400 mg at 01/15/172016 ??? sodium chloride 0.9 % flush 5 mL, 5 mL, Intravenous, BID, Cody Patel MD, 5 mL at ??? sodium chloride 0.9 % flush 5-20 mL, 5-20 mL, Intravenous, Q1 Min PRN, Cody Patel MD ??? lidocaine (XYLOCAINE) 10 mg/mL (1 %) injection 3 mg, 0.3 mL, Subcutaneous, Once PRN, Cody Patel MD ??? sodium chloride 0.9% infusion, 1,000 mL, Intravenous, Continuous, Cody Patel MD, Last Rate: 100 mL/hr at 01/16/17 0656, 1,000 mL at 01/16/17 0656 ??? enoxaparin (LOVENOX) injection 40 mg, 40 mg, Subcutaneous, Nightly, Cody Patel MD, 40 mg at 01/15/17 2150 ??? senna-docusate (PERICOLACE) 8.6-50 mg per tablet 2 tablet, 2 tablet, Oral, BID PRN, Cody Patel MD ??? acetaminophen (TYLENOL) tablet 650 mg, 650 mg, Oral, Q6H PRN, Cody Patel MD ??? ondansetron (ZOFRAN) tablet 4 mg, 4 mg, Oral, Q8H PRN OR ondansetron (ZOFRAN) injection 4 mg, 4 mg, Intravenous, Q8H PRN, Cody Patel MD ??? ketorolac (TORADOL) injection 30 mg, 30 mg, Intravenous, Q6H PRN, Cody Patel MD, 30 mg at103/17/16 0908 ??? diphenhydrAMINE (BENADRYL) capsule 25 mg, 25 mg, Oral, TID PRN, Cody Patel MD Allergies: Allergies Allergen Reactions ??? Penicillins ??? Vancomycin Analogues ??? Vancomycin Hcl Social History: Social History Social History ??? Marital status: Spouse name: N/A ??? Number of children: N/A ??? Years of education: N/A Occupational History ??? Not on file. Social History Main Topics ??? Smoking status: Never Smoker ??? Smokeless tobacco: Never Used ??? Alcohol use No ??? Drug use: No ??? Sexual activity: Not on file Other Topics Concern ??? Not on file Social History Narrative Significant Family History: History reviewed. No pertinent family history. Labs: - Platelet count and Coags pending Imagin) CT Head (01/14/17): IMPRESSION No acute intracranial hemorrhage. Unchanged ventricular caliber. Physical Exam: Will be performed at the time of the lumbar puncture. Assessment / Plan: 46 y.o. male with h/o congenital aqueductal stenosis s/p PRODUCT ASSURANCE ENGINEER shunt with multiple prior revisions as well as h/o epilepsy and migraines, now presenting with worsening headaches over the past 3 weeks. Bedside lumbar puncture attempt was unsuccessful per Neurology. We will attempt a fluoroscopically-guided lumbar puncture and obtain an opening pressure as well as CSF for labs per Neurology recs. The patient will require a platelet count and coags prior to the procedure. Medications to discontinue: None Prophylactic antibiotic: None Planned access site / position: Lumbar Vertebra/Prone Camron Cristina MD Embedder (PGY 2) Pager: [phone] * Veronica Yang MD - 01/16/2017 6:49 AM EST Neurology Progress Note Patient Name: Aron Keane Admit Date: 01/14/2017 Attending: Lul Alvarez MD Patient ID: Aron Keane is a 46 y.o. 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 He is currently being evaluated for a headache lasting about 3 weeks and some associated neck pain. Active Hospital Problems Diagnosis ??? Headache Resolved Hospital Problems Diagnosis Date Resolved No resolved problems to display. Interval History: Admitted to neurology Carbamazepine level: 6.7 As per nursing notes, headache still remains despite magnesium and Toradol dosing Patient notes headache was a 4/10 when he first woke up. However, has been increasing to about a 6/10 at the time of the assessment. Notes that the headache is still on the right frontal and sometimes travels near his shunt. Also notes constant pain near his shunt as well. Loud noises and lights continue to aggravate his headache. Is not quite sure which medication helped to get down to a 4/10. Endorses worry about possible surgery. Would like to be knocked out for fluoroscopy guided LP. Medications: ??? amitriptyline 100 mg Oral Nightly ??? carBAMazepine 600 mg Oral QAM ??? gemfibrozil 600 mg Oral BID AC ??? levothyroxine 50 mcg Oral QAM ??? carBAMazepine 400 mg Oral QPM ??? sodium chloride 0.9 % 5 mL Intravenous BID ??? enoxaparin 40 mg Subcutaneous Nightly Physical Exam: Afebrile, BP slightly elevated at times with systolics in the 150s-160s Vitals: Temp: [36 ??C (96.8 ??F)-36.7 ??C (98.1 ??F)] Heart Rate: [80-87] Resp: [16-18] BP: (97-158)/(63-100) SpO2: [96 %-97 %] Heart Rate from SPO2: [68 bpm-73 bpm] General: alert, NAD HEENT: oral mucosa moist, no thrush, no carotid bruits, no thyromegaly, no lymphadenopathy, multiple well healed surgical scars noted on scalp. Decreased rom of motion to the the left and right (patient states this is worse than his baseline). Shunt can be palpated along left side of neck with minimal tenderness noted. No erythema or fluctuance noted. Heart: Regular rate, S1, S2 no murmur, gallops, or rubs appreciated Lungs: CTAB, good respiratory effort Abd: soft, nontender, nondistended Ext: no edema, Neuro exam: MSE: alert, oriented to person, place, time, situation, follows simple and complex commands, speechfluent with no dysarthria, able to repeat a sentence, names objects. CN: PERRL, B/l esotropia, R LAURA (both baseline),no nystagmus, facial sensation intact, no facial droop or asymmetry, tongue protrudes midline, uvula and palate elevate symmetrically, trap symmetric strength bilaterally Motor: 5/5 RUE 5/5 LUE 5/5 RLE 5/5 LLE Normal bulk and tone Reflexes 2+ bilat biceps, brachioradialis, triceps 2+ bilat patella, achilles downgoing toes Sensation: intact light touch and temperature diffusely Coordination: intact finger nose finger and JESUS, no dysmetria, no tremor Gait: deferred Labs: Recent Results (from the past 24 hour(s)) Carbamazepine level, total Result Value Ref Range Carbamazepine Lvl 6.7 (L) 8.0 - 12.0 mg/L Basic Metabolic Panel (non-fasting) Result Value Ref Range Glucose Lvl 137 65 - 199 mg/dL BUN 15 10 - 20 mg/dL Creatinine 1.03 0.80 - 1.50 mg/dL Sodium 139 135 - 145 mmol/L Potassium 3.7 3.5 - 5.0 mmol/L Chloride 101 98 - 107 mmol/L CO2 25 22 - 31 mmol/L Anion Gap 13 5 - 15 mmol/L Calcium 9.5 8.5 - 10.5 mg/dL Estimated GFR >60 >=60 Magnesium Result Value Ref Range Magnesium 1.28 (H) 0.69 - 1.07 mmol/L Phosphorus Result Value Ref Range Phosphorus 1.5 (L) 2.5 - 4.5 mg/dL Hepatic Function Panel Result Value Ref Range Total Protein 7.3 6.1 - 8.0 gm/dL Albumin 4.3 3.2 - 5.2 gm/dL AST 9 0 - 39 unit/L ALT 6 0 - 55 unit/L Alk Phos 84 40 - 120 unit/L Total Bilirubin 0.3 0.2 - 1.3 mg/dL Bili, Direct 0.1 0.0 - 0.3 mg/dL CRP, acute inflammation Result Value Ref Range CRP 2.6 <=4.9 mg/L Sedimentation rate Result Value Ref Range Sed Rate 7 0 - 15 mm/hr TSH Stephens Result Value Ref Range TSH 3.37 0.27 - 4.20 mlU/ML Hemogram Result Value Ref Range WBC 8.6 4.0 - 9.5 x10(3)/mcL RBC 5.40 4.58 - 5.54 x10(6)/mcL Hemoglobin 17.1 (H) 13.7 - 16.5 gm/dL Hematocrit 48.6 (H) 40.5 - 48.5 % MCV 90.0 82.9 - 93.1 fL MCH 31.7 27.5 - 32.1 pg MCHC 35.2 32.0 - 35.7 gm/dL Platelets 331 145 - 357 x10(3)/mcL RDWSD 38.9 36.0 - 45.0 fL RDWCV 11.8 11.4 - 13.8 % MPV 9.3 7.6 - 12.9 fL nRBC % Auto 0.0 % nRBC Abs Auto 0.000 0.000 - 0.000 x10(3)/mcL Differential, Automated Result Value Ref Range Neutrophils % 65.3 % Neutr Abs (ANC) 5.64 1.70 - 6.10 x10(3)/mcL Lymphocytes % 25.4 % Lymphocytes Abs 2.2 0.9 - 3.2 x10(3)/mcL Monocytes % 6.2 % Monocyte Abs 0.5 0.3 - 0.9 x10(3)/mcL Eosinophils % 2.3 % Eosinophils Abs 0.2 0.0 - 0.4 x10(3)/mcL Basophils % 0.6 % Basophils Abs 0.0 0.0 - 0.1 x10(3)/mcL Immature Gran % 0.20 % Ute Gran Abs 0.02 0.00 - 0.04 x10(3)/mcL Urinalysis with reflex Culture Result Value Ref Range Glucose UA Negative Negative mg/dL Protein UA Negative Negative mg/dL Bilirubin UA Negative Negative mg/dL Urobilinogen UA Normal Normal mg/dL pH UA 6.0 5.0 - 8.0 Blood UA Negative Negative mg/dL Ketones UA Negative Negative mg/dL Nitrite UA Negative Negative Leukocytes UA Negative Negative mcL Appearance UA Clear Clear Spec Hosmer UA 1.015 1.002 - 1.030 Color UA Yellow Yellow Culture Reflexed No Urine Hold Result Value Ref Range Urine Hold Sample in lab. Diagnostic Tests and Imaging: CT Head w/o Contrast 11/14 FINDINGS: No acute intracranial hemorrhage. No evidence of interval mass or mass effect. Unchanged position of the shunt. Unchanged ventricular caliber. Extra-axial spaces are normal. Mild scattered sinus mucosal disease. ?? IMPRESSION No acute intracranial hemorrhage. Unchanged ventricular caliber. CT Neck Soft Tissue 11/15 IMPRESSION No focal fluid collection or inflammatory changes along the visualized extracranial course of the right PRODUCT [employer]ANCE [employer]INEER shunt catheter. Assessment and Plan: Aron Keane is a 46 y.o. 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 Was seen in clinic by Neurosurgery on 01/13 who did not feel like this was a shunt issue based on exam and normal shunt series performed. Exam remains reassuring. Current headache appears to be similar to his previous pre-shunt revision headaches as per him. He, however, continues to have photophobia and aversion to loud noises. Magnesium sulfate and Toradol have been tried thus far with some minor relief of headache (06/02). We will try to schedule his toradol with atarax prn currently to see if that helps. If that does not wayne out, there is always the option for DHE for headache/migraine relief. He also continues to endorse neckpain and decreased range of motion of his neck which he feels is different from his baseline. CT head and CT neck were done and did not elucidate a cause. LP was attempted at bedside to rule our meningitis, but was unsuccesful and will have to be conducted under fluoro today. If opening pressure iselevated or low, then we will consult neurosurgery for further shunt recommendations. If opening pressure is normal, we will obtain CTV and CTA to assure no vessel abnormality is at play. MRI is not possible due to his re-progammable shunt. ?? PLAN: Continue floor level of care -LP with opening pressure and CSF studies -CT neck w/wo - completed with results above -Shunt series-COMPLETED AND NORMAL -Continue all home meds -synthroid 50 mcg /day -gemfibrozil -tegretol 600 / 400 -amitriptyline 100 mg QHS -continue all home medicatons -magnesium IV prn -tylenol prn -toradol q6H scheduled -Will add atarax 10 mg TID for anxiety/headache - to be given with scheduled toradol -If above toradol is not beneficial then we may try DHE if all other CSF studies are unrevealing -IVF -lovenox for dvt ppx Diet: Regular diet ?? Code Status: FULL CODE Justin Gastelum MD Neurology Resident - PGY-2 General Neurology Team Pager #[phone] 01/16/17 ATTENDING NOTE: I reviewed the pertinent aspects of the history with the patient and agree with the history as outlined in the resident's note. I repeated the pertinent aspects of the physical examination and agree with it as documented in the resident's note - pain induced by upward gaze. Also present is pain with palpation over the orbits without proptosis. I reviewed the impression and plan with the resident a nd agree with it as documented. CSF OP pending. If normal, plan for CTV/CTA to evaluate particularly for venous sinus thrombosis. Veronica Yang MD Attending Physician Neuromuscular Medicine & Clinical Neurophysiology * Bismark Ng RN - 01/15/2017 3:45 AM EST Order placed by Dr. Patel for magnesium sulfate 1g in dextrose 5% 100mL to run at 600mL/hr for treatment of pt's ALICEA pain. Spoke to pharmacist Errol who verified giving the med at a rate of 600mL/hr. Pharmacist instructed putting IV pump into Basic Mode to achieve rate settings. Med infusing. Patient stable. * Bismark Ng RN - 01/15/2017 1:42 AM EST Aron Keane arrived to 5 rm 504A @ 0140 from ED. Oriented to room, call shell within reach,educated on importance of using prior to getting OOB, AVSS, shunt incision area red, warm, and irritated, belongings updated in eDH, bed locked in low position, purposeful hourly rounding. documented in this encounter H&P Notes * Cody Patel MD - 01/15/2017 9:53 AM EST Please see consult note from this encounter for details on H&P, exam, assessment, and plan. Cody Patel MD PGY-3 Neurology Resident documented in this encounter Procedure Notes * Errol Bee MD - 01/19/2017 1:03 PM ESTProcedure(s): PRG REPROGRAMMING, PROGRAMMABLE CSF SHUNT Pre-Procedure Diagnose(s): Persistent headaches Post-Procedure Diagnose(s): Persistent headaches Patient: Aron Keane [id number] 01/19/2017 Shunt Reprogramming Note Patient has history of childhood aqueductal stenosis with hydrocephalus. The patient has a Codman valve which was recently adjusted to 100 from 80 due to persistent headaches. The patient claims thathis headaches were worse after the adjustment. In discussion with Dr. Yang from Neurology, given his worsening headache after adjustment his shunt will be reprogrammed to 80 post MRI. Initial Shunt Valve and Setting: Codman Valve at 100 New Shunt Valve Setting: Codman Valve at 80 Plan: XR to confirm setting. Errol Bee MD Associated attestation - Anoop Almanza MD - 01/20/2017 5:50 PM EST I have not seen this patient. documented in this encounter ED Notes * Mago Mckeon RN - 01/15/2017 1:41 AM EST Patient sent to floor via . Tolerated transfer well * Mago Mckeon RN - 01/15/2017 12:27 AM EST Patient admitted pending room assignment * Mago Mckeon RN - 01/15/2017 12:09 AM EST Patient pending disposition resting quietly in no apparent distress * Mago Mckeon RN - 01/14/2017 7:57 PM EST Patient back from CT neuro in with patient * Mago Mckeon RN - 01/14/2017 7:44 PM EST Patient sent for CT * Mago Mckeon RN - 01/14/2017 7:24 PM EST Patient received alert and oriented x4. Patient C/O headache 12/02 denies sensitivity to light. Resp even and unlabored lungs clear. Denies chest or abd pain. No nausea or vomiting. IV in R arm patent and without redness or swelling at insertion site. Patient pending CT scan * Ada White MD - 01/14/2017 6:10 PM EST ED Resident Note Aron Keane is an 46 y.o. male who presents to the ED with: Chief Complaint Patient presents with ??? Other ? of shunt complication I saw this patient 01/14/2017 at approximately 6pm HPI Aron Keane is a 46 y.o. male with PRODUCT ASSURANCE ENGINEER shunt secondary to congenital aqueductal stenosis whopresents to the Emergency Department with ALICEA. He reports several weeks of global ALICEA. Head CT 01/09/17 and shunt series on 01/13. ALICEA worsened again today and feels to patient like prior ALICEA that have been associated with shunt issues. Was referred to the ED by neurosurgery who expressed concerns of possible shunt malfunction. Patient reports that he had one episode of vomiting at 3 PM today. He has had nausea since that time, but no further vomiting. His headache is frontal and over the shunt. Posteriorly at the base ofhis skull on the right side. The symptoms are worse when he lies flat. He denies fevers at home, though his states that he felt warm earlier today. He has not had issues with his shunt since 2007. He does state that these symptoms are similar to the past where he has had problems with his shunt. He reports that he had cough/cold symptoms a week ago that have since improved, though he still hassome residual congestion. Denies fever, diarrhea, abdominal pain, dyspnea, chest pain, dysuria. From the note from Sonia Escalona yesterday in [facility] clinic: Unfortunately, there is no conclusive way to determine if Priyanka shunt is functional or not without invasive monitoring. I consulted with both MARVA Uribe and Dr. Diaz. Dr. Diaz felt it was reasonable to make a small adjustment upwards to 100 to see if Robbies symptoms were due to low pressure headache and then to reassess in one week. Shunt was adjusted from 80 to 100. Review of Systems: Review of Systems Constitutional: Negative for fever. HENT: Negative for congestion, rhinorrhea and sore throat. Eyes: Negative for visual disturbance. Respiratory: Negative for cough and shortness of breath. Cardiovascular: Negative for chest pain and palpitations. Gastrointestinal: Positive for nausea and vomiting. Negative for abdominal pain and diarrhea. Genitourinary: Negative for difficulty urinating, frequency and urgency. Musculoskeletal: Negative for gait problem. Skin: Negative for color change and rash. Neurological: Positive for headaches. Negative for syncope. Psychiatric/Behavioral: Negative for confusion. Physical Exam: Patient Vitals for the past 24 hrs: BP Temp Temp src Pulse Resp SpO2 Height Weight 01/14/17 2200 (!) 136/91 - - - - 95 % - - 01/14/17 2130 (!) 122/95 - - - - 97 % - - 01/14/17 2100 (!) 137/104 - - - - 97 % - - 01/14/171999 (!) 144/96 - - - - - - - 01/14/17 1930 (!) 144/98 - - - - 94 % - - 01/14/17 1825 133/77 - - 74 18 97 % - - 01/14/17 1701 (!) 147/103 36.9 ??C (98.4 ??F) Oral 100 20 99 % 165.1 cm (5' 5) 83.9 kg (185 lb) Vital signs significant for HTN Physical Exam Constitutional: He is oriented to person, place, and time. He appears well- developed and well-nourished. HENT: Head: Normocephalic and atraumatic. Right Ear: External ear normal. Left Ear: External ear normal. Nose: Nose normal. Eyes: EOM are normal. Neck: Neck supple. Neck pain with flexion Cardiovascular: Normal rate, regular rhythm and normal heart sounds. Pulmonary/Chest: Effort normal and breath sounds normal. No respiratory distress. He has no wheezes. He has no rales. Abdominal: Soft. Bowel sounds are normal. He exhibits no distension. There is no tenderness. There is no rebound and no guarding. Neurological: He is alert and oriented to person, place, and time. He has normal strength. No cranial nerve deficit or sensory deficit. Coordination normal. GCS eye subscore is 4. GCS verbal subscoreis 5. GCS motor subscore is 6. Right eye drifts laterally when gaze is forward; patient states that this is his baseline. Pupils PERRL. Patient states that upward gaze causes pain. No nystagmus noted. There is point tenderness at the right base of the skull at shunt site. No overlying erythema seen. Skin: Skin is warm and dry. Psychiatric: He has a normal mood and affect. His behavior is normal. Nursing note and vitals reviewed. ED Course: - Patient seen under the supervision of Dr. Cintron - Medications, allergies and past medical history reviewed Medications given Medications - No data to display Significant lab results Recent Results (from the past 24 hour(s)) Basic Metabolic Panel (non-fasting) Result Value Ref Range Glucose Lvl 91 65 - 199 mg/dL BUN 12 10 - 20 mg/dL Creatinine 1.04 0.80 - 1.50 mg/dL Sodium 140 135 - 145 mmol/L Potassium 4.1 3.5 - 5.0 mmol/L Chloride 99 98 - 107 mmol/L CO2 26 22 - 31 mmol/L Anion Gap 15 5 - 15 mmol/L Calcium 9.3 8.5 - 10.5 mg/dL Estimated GFR >60 >=60 Hepatic Function Panel Result Value Ref Range Total Protein 8.0 6.1 - 8.0 gm/dL Albumin 4.3 3.2 - 5.2 gm/dL AST 11 0 - 39 unit/L ALT 11 0 - 55 unit/L Alk Phos 96 40 - 120 unit/L Total Bilirubin 0.3 0.2 - 1.3 mg/dL Bili, Direct 0.1 0.0 - 0.3 mg/dL Hemogram Result Value Ref Range WBC 10.8 (H) 4.0 - 9.5 x10(3)/mcL RBC 5.58 (H) 4.58 - 5.54 x10(6)/mcL Hemoglobin 17.9 (H) 13.7 - 16.5 gm/dL Hematocrit 50.8 (H) 40.5 - 48.5 % MCV 91.0 82.9 - 93.1 fL MCH 32.1 27.5 - 32.1 pg MCHC 35.2 32.0 - 35.7 gm/dL Platelets 337 145 - 357 x10(3)/mcL RDWSD 39.2 36.0 - 45.0 fL RDWCV 11.7 11.4 - 13.8 % MPV 9.2 7.6 - 12.9 fL nRBC % Auto 0.0 % nRBC Abs Auto 0.000 0.000 - 0.000 x10(3)/mcL Differential, Automated Result Value Ref Range Neutrophils % 71.7 % Neutr Abs (ANC) 7.76 (H) 1.70 - 6.10 x10(3)/mcL Lymphocytes % 20.4 % Lymphocytes Abs 2.2 0.9 - 3.2 x10(3)/mcL Monocytes % 5.3 % Monocyte Abs 0.6 0.3 - 0.9 x10(3)/mcL Eosinophils % 1.6 % Eosinophils Abs 0.2 0.0 - 0.4 x10(3)/mcL Basophils % 0.8 % Basophils Abs 0.1 0.0 - 0.1 x10(3)/mcL Immature Gran % 0.20 % Ute Gran Abs 0.02 0.00 - 0.04 x10(3)/mcL Blue Tube HOLD Result Value Ref Range Blue Hold Sample in lab. Gold Tube HOLD Result Value Ref Range Gold Hold Sample in lab. Imaging - CT head IMPRESSION No acute intracranial hemorrhage. Unchanged ventricular caliber. - XR shunt series IMPRESSION PRODUCT ASSURANCE ENGINEER shunt catheter without evidence of kink or discontinuity, unchanged compared to prior from 01/13/2017. Consults - Neurosurgery Assessment and Plan: Assessment: Aron Keane is a 46 y.o. male with PRODUCT ASSURANCE ENGINEER shunt secondary to congenital aqueductal stenosis who presents to the Emergency Department with ALICEA. He reports several weeks of global ALICEA. Head CT 01/09/17 and shunt series on 01/13. ALICEA worsened again today and feels to patient like prior HAthat have been associated with shunt issues. Was referred to the ED by neurosurgery who expressed concerns of possible shunt malfunction. Nonfocal neurologic examination. Do not suspect meningitis based on lack of infectious symptoms, no meningismus, no confusion, no fever. CT and shunt series wereunchanged from prior imaging. Neurosurgery is in the process of evaluating the patient and anticipate disposition based on their recommendations. I signed this patient out to the oncoming team at theend of my shift. Ada White MD PGY-2 Pager #[phone] *Note dictated with [employer] software Ada White MD Resident 01/14/17 8094 Associated attestation - Ray Cintron MD - 01/15/2017 3:26 PM EST ED ATTENDING ATTESTATION NOTE The patient was [...] and plan as described in the resident's note. documented in this encounter Miscellaneous Notes * Plan of Care - Jenna Warner RN - 01/19/2017 1:56 AM EST Problem: Patient Care Overview Goal: Plan of Care Review OUTCOME EVALUATION NOTE: OUTCOME SUMMARY: Patient neuro status stable and VSS. DHE given for pain management of headache, tolerated medication IV without irritation at IV site. Radiating neck pain managed with ice pack. Pt voided 500mL priorto bed. Rested comfortably in bed with significant other at bedside throughout the night. Safety maintained. PLAN MOVING FORWARD: Continue pain management. Pending MRI. INDIVIDUALIZED FALL PREVENTION INTERVENTIONS: Patient-specific fall risk factors per assessment: Medical equipment, hospital environment Assistance: Independent Supervision: Independent Surveillance: Bed locked in low position, call shell within reach, purposeful hourly rounding, clutter free environment, bed alarm on, family at bedside Patient-specific fall prevention interventions for sensory deficits provided: N/A CPG GOAL OUTCOME EVALUATION: Continue care plan as documented. * Plan of Care - Melany Mcknight RN - 01/18/2017 4:35 PM EST Problem: Patient Care Overview Goal: Plan of Care Review Outcome: Ongoing (Interventions Implemented as Appropriate) 01/17/17 0654 01/18/17 0900 Coping/Psychosocial Plan Of Care Reviewed With -- patient;spouse Plan of Care Review Progress progress toward functional goals as expected -- OUTCOME EVALUATION NOTE: OUTCOME SUMMARY: Patient remains neurologically intact. DHE and magnesium given for pain management of headache. Patient complained of urinary urgency and retention for past week. Bladder scanned patient for 701mL, patient voided 500mL, bladder scanned for 153mL. Will continue to bladder scan q4h. PLAN MOVING FORWARD: Continue pain management. Pending MRI. INDIVIDUALIZED FALL PREVENTION INTERVENTIONS: Patient-specific fall risk factors per assessment: Medical equipment Assistance: Independent Supervision: Independent Surveillance: Bed locked in low position, call shell within reach, purposeful hourly rounding, clutter free environment, bed alarm on, family at bedside Patient-specific fall prevention interventions for sensory deficits provided: N/A CPG GOAL OUTCOME EVALUATION: Continue care plan as documented. * Plan of Care - Branden Szymanski RN - 01/18/2017 1:18 AM EST Problem: Patient Care Overview Goal: Plan of Care Review Outcome: Ongoing (Interventions Implemented as Appropriate) 01/17/17 0654 01/17/171999 Coping/Psychosocial Plan Of Care Reviewed With -- patient;spouse Plan of Care Review Progress progress toward functional goals as expected -- OUTCOME EVALUATION NOTE: OUTCOME SUMMARY: Patient alert and oriented throughout entire shift. at bedside throughout shift. Patient complained of head pain throughout shift but tolerated scheduled medications and stated that the pain relief was adequate. Patient stated that last bowel movement was 01/13 and has been refusing PRN bowel medications. Patient ringing appropriately and call shell within reach, will continue to monitor. PLAN MOVING FORWARD: Pain Control Discharge INDIVIDUALIZED FALL PREVENTION INTERVENTIONS: Patient-specific fall risk factors per assessment: None Assistance: Independent Supervision: Independent, Eyes on Surveillance: Bed locked in low position, call shell within reach, purposeful hourly rounding, clutter free environment, bed/chair alarm on, family at bedside Patient-specific fall prevention interventions for sensory deficits provided: N/A CPG GOAL OUTCOME EVALUATION: Continue care plan as documented. Goal: Individualization & Mutuality Outcome: Ongoing (Interventions Implemented as Appropriate) 01/15/17 1817 Mutuality/Individual Preferences What Anxieties, Fears or Concerns Do You Have About Your Health or Care? none What Questions Do You Have About Your Health or Care? none What Information Would Help Us Give You More Personalized Care? none Goal: Fall Prevention-Safe Patient Handling Outcome: Ongoing (Interventions Implemented as Appropriate) 01/16/17 0412 01/17/17 1800 01/17/171999 Restraint Interventions Safety Promotion/Fall Prevention -- -- activity supervised;fall prevention program maintained;muscle strengthening facilitated;nonskid shoes/slippers when out of bed;safety round/check completed;toileting scheduled Musculoskeletal Interventions Muscle Strengthening activity/mobility promoted;mobility in bed promoted -- -- Positioning Body Position -- independent -- Activity and Safety Assistive Device -- -- -- Daily Care Interventions Self-Care Promotion -- -- -- [place] Fall Risk History of Falling -- -- 0 Secondary Diagnosis -- -- 15 Ambulatory Aids -- -- 0 Intravenous Therapy/Heparin/Saline Lock -- -- 20 Gait/Transferring -- -- 0 Mental Status -- -- 0 Score -- -- 35 OTHER [place] Fall Risk -- -- Med 01/18/17 0114 Restraint Interventions Safety Promotion/Fall Prevention -- Musculoskeletal Interventions Muscle Strengthening -- Positioning Body Position -- Activity and Safety Assistive Device None Daily Care Interventions Self-Care Promotion independence encouraged [place] Fall Risk History of Falling -- Secondary Diagnosis -- Ambulatory Aids -- Intravenous Therapy/Heparin/Saline Lock -- Gait/Transferring -- Mental Status -- Score -- OTHER [place] Fall Risk -- Goal: Infection Control Outcome: Ongoing (Interventions Implemented as Appropriate) 01/17/171999 Safety Interventions Isolation Precautions standard precautions maintained Infection Prevention rest/sleep promoted Coping Strategies Supportive Measures active listening utilized Goal: Discharge Needs Assessment Outcome: Ongoing (Interventions Implemented as Appropriate) 01/15/17 1822 01/18/17113 Discharge Needs Assessment Concerns To Be Addressed -- no discharge needs identified Readmission Within The Last 30 Days -- no previous admission in last 30 days Equipment Needed After Discharge -- none Discharge Disposition -- still a patient Current Health Anticipated Changes Related to Illness -- none Activity/Self Care Review of Systems Equipment Currently Used at Home -- none Living Environment Transportation Available car -- Goal: Interdisciplinary Rounds/Family Conf Outcome: Ongoing (Interventions Implemented as Appropriate) 01/17/17 1528 Interdisciplinary Rounds/Family Conf Participants nursing;patient * Plan of Care - Melany Mcknight RN - 01/17/2017 3:36 PM EST Problem: Patient Care Overview Goal: Plan of Care Review Outcome: Ongoing (Interventions Implemented as Appropriate) 01/17/17 0654 01/17/17 0800 Coping/Psychosocial Plan Of Care Reviewed With -- patient Plan of Care Review Progress progress toward functional goals as expected -- OUTCOME EVALUATION NOTE: OUTCOME SUMMARY: Neck pain increased to 10/10 at noontime, MD notified. Reported headache and neck pain at 6/10 after receiving DHE and 500mL bolus, tolerated well. PLAN MOVING FORWARD: Continue DHE protocol, manage pain. INDIVIDUALIZED FALL PREVENTION INTERVENTIONS: Patient-specific fall risk factors per assessment: Medical equipment, headache and neck pain. Assistance: Independent Supervision: Independent, Eyes on Surveillance: Bed locked in low position, call shell within reach, purposeful hourly rounding, clutter free environment, bed alarm on, family at bedside Patient-specific fall prevention interventions for sensory deficits provided: N/A CPG GOAL OUTCOME EVALUATION: Continue care plan as documented. * Plan of Care - Pallavi Lainez RN - 01/17/2017 6:56 AM EST Problem: Patient Care Overview Goal: Plan of Care Review Outcome: Ongoing (Interventions Implemented as Appropriate) 01/17/17 0654 Coping/Psychosocial Plan Of Care Reviewed With patient Plan of Care Review Progress progress toward functional goals as expected OUTCOME EVALUATION NOTE: OUTCOME SUMMARY: Pt alert and oriented x4. Headache 5-7/10. 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 3/10 pain to bilateral forearms. Tylenol hot packs and ice packs switched off. CT done. Ambulating independently. PLAN MOVING FORWARD: Monitor headaches, potential for DHE protocol. INDIVIDUALIZED FALL PREVENTION INTERVENTIONS: Patient-specific fall risk factors per assessment: Steady gait Assistance: Independent Supervision: Independent Surveillance: Bed locked in low position, call shell within reach, purposeful hourly rounding, clutter free environment, bed/chair alarm on. Patient-specific fall prevention interventions for sensory deficits provided: yes CPG GOAL OUTCOME EVALUATION: Continue care plan as documented. * Plan of Care - Silvia Baron RN - 01/16/2017 12:12 PM EST Problem: Patient Care Overview Goal: Plan of Care Review Outcome: Ongoing (Interventions Implemented as Appropriate) 01/16/17 1208 Coping/Psychosocial Plan Of Care Reviewed With patient;spouse Plan of Care Review Progress progress toward functional goals as expected OUTCOME EVALUATION NOTE: OUTCOME SUMMARY: Pt is A&O x4, PERRLA with dysconjugate gaze, strengths are 5/5 bilaterally. MIVF infusing at 100 mL/hr. Pt c/o 4/10 ALICEA pain; pt refused PRNs at this time. PRN Toradol changed to scheduled Toradol- given at 11:44. at bedside for part of shift. Pt calm and cooperative with care. Pt transferred to room 511A; report given to EDWARD Mosley. PLAN MOVING FORWARD: LP under fluroscopy Continue to monitor and treat pain as needed DC planning INDIVIDUALIZED FALL PREVENTION INTERVENTIONS: Patient-specific fall risk factors per assessment: ALICEA pain, MIVF Assistance: SBA Supervision: Eyes on Surveillance: Bed locked in low position, call shell within reach, purposeful hourly rounding, clutter free environment, bed/chair alarm on Patient-specific fall prevention interventions for sensory deficits provided: N/A CPG GOAL OUTCOME EVALUATION: Continue care plan as documented. * Initial Assessments - Chris Gibbs RN - 01/16/2017 9:04 AM EST Office of Care Management Initial Assessment Chris Gibbs, EDWARD reviewed record and discussed patient with Care Team. Source of Information: Pt and Pema Introduced self/reviewed role; services accepted. Reason for Hospitalization: Reason for Admission as Stated by Patient: i'm having problems with myshunt and i'm getting it looked at. History reviewed. No pertinent past medical history. Hospitalizations Within the Past 30 Days: none Anticipated Length Of Stay (If known): Expected Length of Hospitalization: 1 days Current Decision-Making Capacity: Pt A&O x4, Defers to as he states he has a memory issue and relies on her to help answer questions. Advance Care Planning: none at this time, they both state Current Coping/Education/Information Needs: pt and feel like they have no direction of plan. They are anxious to get pt home. Store Administrative Assistant will make team aware pt is feeling in need of clarification. Current Functional Ability: indepenent Functional Status Prior to Admission: Independent Home Environment: Pt lives with his and 2 children ages 11and/ 13 Pt lives in a mobile home with 4 stairs into the home. Social & Family Supports/Community Resources: no Behavioral Health History: denies Substance Use/Abuse: no Other Pertinent/Service Specific Information: none identified at this time Health/Prescription Coverage: Primary Insurance: MEDICARE Secondary Insurance: N/Avt medicare in process Prescription Coverage: as above [place] [facility] [place] Primary Care Provider: Cl Beltran MD [phone] Patient/Caregiver Goals of Treatment: Pt frustrated that there is no plan in place at this time. Hewants to go home. Potential Needs for Transition of Care: Rehab/SNF: n/a Home Health: [facility] be accepted if necessary. DME: n/a Dialysis: no Community Resources: none identified Transportation: Pt will transport pt home on d/c Other: n'a Anticipated Barriers to Discharge/Special Considerations: none identified at this time. Plan: A member of the Care Management team will continue to monitor progress, follow for continuityof care and assist with transition of care planning. Chris Gibbs RN Pager: [phone] * Plan of Care - Cierra Gutierrez RN - 01/16/2017 4:20 AM EST Problem: Patient Care Overview Goal: Plan of Care Review Outcome: Ongoing (Interventions Implemented as Appropriate) OUTCOME EVALUATION NOTE: OUTCOME SUMMARY: Alert and oriented, calm and cooperative. Ambulated to BR and around the unit independently with . Safety maintained. PLAN MOVING FORWARD: LP under fluoro INDIVIDUALIZED FALL PREVENTION INTERVENTIONS: Patient-specific fall risk factors per assessment: Medical devices Assistance: SBA Supervision: Eyes on, arms reach Surveillance: bed locked in low position, purposeful rounding, call shell within reach Patient-specific fall prevention interventions for sensory deficits provided, if applicable: [X] N/A CPG GOAL OUTCOME EVALUATION: Goal: Fall Prevention-Safe Patient Handling Outcome: Ongoing (Interventions Implemented as Appropriate) 01/16/17 0412 Restraint Interventions Safety Promotion/Fall Prevention fall prevention program maintained;nonskid shoes/slippers when outof bed;activity supervised Musculoskeletal Interventions Muscle Strengthening activity/mobility promoted;mobility in bed promoted Positioning Body Position independent Goal: Infection Control Outcome: Ongoing (Interventions Implemented as Appropriate) 01/16/172 Safety Interventions Isolation Precautions standard precautions maintained Infection Prevention environmental surveillance performed Problem: Pain, Acute (Adult) Goal: Acceptable Pain Control/Comfort Level Patient will demonstrate the desired outcomes by discharge/transition of care. Outcome: Ongoing (Interventions Implemented as Appropriate) 01/16/172 Pain, Acute (Adult) Acceptable Pain Control/Comfort Level making progress toward outcome * Plan of Care - Stefani Glass RN - 01/15/2017 1:44 PM EST Problem: Patient Care Overview Goal: Plan of Care Review Outcome: Ongoing (Interventions Implemented as Appropriate) 01/15/17 1340 Coping/Psychosocial Plan Of Care Reviewed With patient;spouse Plan of Care Review Progress no change OUTCOME EVALUATION NOTE: OUTCOME SUMMARY: Patient reported headache between 6-8, IV magnesium given in morning with some effect and PRN toradol given. at bedside throughout day. Tolerating IV fluids well. UA collected. Ambulated x1 around unit with . PLAN MOVING FORWARD: LP under fluoro Manage headache INDIVIDUALIZED FALL PREVENTION INTERVENTIONS: Patient-specific fall risk factors per assessment: hospitalization Assistance: Independent Supervision: Independent Surveillance: Bed locked in low position, call shell within reach, purposeful hourly rounding, clutter free environment, family at bedside Patient-specific fall prevention interventions for sensory deficits provided: N/A CPG GOAL OUTCOME EVALUATION: Continue care plan as documented. * Plan of Care - Bismark Ng RN - 01/15/2017 4:29 AM EST Problem: Patient Care Overview Goal: Plan of Care Review Outcome: Ongoing (Interventions Implemented as Appropriate) 01/15/17 0213 Coping/Psychosocial Plan Of Care Reviewed With patient;spouse OUTCOME EVALUATION NOTE: OUTCOME SUMMARY: Pt A&Ox4, AVSS, lungs dim. Pt arrived from ED @ 0130, complaints of 8/10 ALICEA pain. Toradol givenwith no positive effect, magnesium sulfate given with positive effect. Old shunt incision R posterior skull behind ear is red and irritated, no drainage, painful per pt. Sleeping during shift, at bedside. Calm and cooperative with care. PLAN MOVING FORWARD: Control pain Monitor vital signs INDIVIDUALIZED FALL PREVENTION INTERVENTIONS: Patient-specific fall risk factors per assessment: Dizziness, pain, hospital environment Assistance: SBA Supervision: Eyes on Surveillance: Bed locked in low position, call shell within reach, purposeful hourly rounding, clutter free environment, bed/chair alarm on, at bedside Patient-specific fall prevention interventions for sensory deficits provided: Yes CPG GOAL OUTCOME EVALUATION: Continue care plan as documented. * Consult Note - Cody Patel MD - 01/14/2017 9:29 PM EST Neurology Admission History and Physical Patient name: Aron Keane Date of : 1970 PCP: Cl Beltran MD CC: headache HPI: Aron Keane is a 46 y.o. 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 Has over 40 shunt revisions Has been using ibuprofen, drinks a lot of caffeine but recently cut back a week ago. Typical quality pain similar to his migraines but it is lasting very longer, 3 weeks, which is unusal and it is getting worse. He also reports tenderness along hus neck where his PRODUCT ASSURANCE ENGINEER shunt runs. 3-4 week history for nasal congestion, frontal sinus tenderness, was given keflex for a week which cleared an URI but did nothing for headache. Takes synthroid 25 or 50 mcg per day. Has not been taking any OTC. Went on antibiotics for cold symptoms for. Stopped tweo weeks ago and was on for 1 week. Was on keflex for 1 week and cold symptoms went away but didn't affect headache synmptoms. Past Medical History: Patient Active Problem List Diagnosis Code ??? S/P PRODUCT ASSURANCE ENGINEER shunt Z98.2 ??? Persistent headaches R51 ??? Headache R51 Medications: Prescriptions Prior to Admission Medication Sig Dispense Refill Last Dose ??? levothyroxine (SYNTHROID) 100 mcg Tablet Take 50 mcg by mouth daily. ??? TESTOSTERONE CYPIONATE IM Inject into the muscle every 14 days. Taking at Unknown time ??? gemfibrozil (LOPID) 600 mg Tablet Take 600 mg by mouth 2 times daily (before meals). Taking at Unknown time ??? carBAMazepine (TEGRETOL XR) 400 mg 12 hr tablet Taking at Unknown time ??? amitriptyline (ELAVIL) 50 mg tablet Taking at Unknown time Allergies Allergen Reactions ??? Penicillins ??? Vancomycin Analogues ??? Vancomycin Hcl No family history on file. Social History Social History Narrative ??? No narrative on file Review of systems: Constitutional: No fevers or chills Eyes: No vision changes, no diplopia, no blurry vision ENT: No rhinorrhea or pharyngitis, no meningismus CV: No chest pain or palpitations Resp: No cough, no shortness of breath GI: + nausea, vomiting, no diarrhea or constipation : No dysuria, no incontinence Heme: No bleeding or bruising Endo: No diabetes or thyroid disease Neuro: See HPI Psych: No depression, normal sleep [x] Review of systems otherwise negative Physical Exam: Vitals: Temp: [36.5 ??C (97.7 ??F)-36.9 ??C (98.4 ??F)] Heart Rate: [62-100] Resp: [16-20] BP: (122-163)/(77-113) SpO2: [93 %-99 %] Heart Rate from SPO2: [79 bpm-92 bpm] General: alert, NAD HEENT: oral mucosa moist, no thrush, no carotid bruits, no thyromegaly, no lymphadenopathy Heart: RRR S1S2 no murmur Lungs: CTAB symmetric expansion Abd: soft, nontender, nondistended Ext: no edema, adequate pulses Neuro exam: MSE: alert, oriented to person, place, time, situation, follows simple and complex commands, speechfluent with no dysarthria, able to repeat a sentence, names objects. CN: PERRL, B/l esotropia, R LAURA (both baseline),no nystagmus, facial sensation intact, no facial droop or asymmetry, tongue protrudes midline, uvula and palate elevate symmetrically, trap symmetric strength bilaterally Motor: 5/5 RUE 5/5 LUE 5/5 RLE 5/5 LLE Normal bulk and tone Reflexes 2+ bilat biceps, brachioradialis, triceps 2+ bilat patella, achilles downgoing toes Sensation: intact light touch, vibration, proprioception, and temperature diffusely Coordination: intact finger nose finger and JESUS, no dysmetria, no tremor Gait: deferred Tenderness along neck where PRODUCT ASSURANCE ENGINEER shunt runs though no overt erythema or fluctuance. Neck supple. Fundoscopic exam normal: crisp disc b/l with no evidence of papilledema. Labs: Recent Results (from the past 24 hour(s)) Basic Metabolic Panel (non-fasting) Result Value Ref Range Glucose Lvl 91 65 - 199 mg/dL BUN 12 10 - 20 mg/dL Creatinine 1.04 0.80 - 1.50 mg/dL Sodium 140 135 - 145 mmol/L Potassium 4.1 3.5 - 5.0 mmol/L Chloride 99 98 - 107 mmol/L CO2 26 22 - 31 mmol/L Anion Gap 15 5 - 15 mmol/L Calcium 9.3 8.5 - 10.5 mg/dL Estimated GFR >60 >=60 Hepatic Function Panel Result Value Ref Range Total Protein 8.0 6.1 - 8.0 gm/dL Albumin 4.3 3.2 - 5.2 gm/dL AST 11 0 - 39 unit/L ALT 11 0 - 55 unit/L Alk Phos 96 40 - 120 unit/L Total Bilirubin 0.3 0.2 - 1.3 mg/dL Bili, Direct 0.1 0.0 - 0.3 mg/dL Hemogram Result Value Ref Range WBC 10.8 (H) 4.0 - 9.5 x10(3)/mcL RBC 5.58 (H) 4.58 - 5.54 x10(6)/mcL Hemoglobin 17.9 (H) 13.7 - 16.5 gm/dL Hematocrit 50.8 (H) 40.5 - 48.5 % MCV 91.0 82.9 - 93.1 fL MCH 32.1 27.5 - 32.1 pg MCHC 35.2 32.0 - 35.7 gm/dL Platelets 337 145 - 357 x10(3)/mcL RDWSD 39.2 36.0 - 45.0 fL RDWCV 11.7 11.4 - 13.8 % MPV 9.2 7.6 - 12.9 fL nRBC % Auto 0.0 % nRBC Abs Auto 0.000 0.000 - 0.000 x10(3)/mcL Differential, Automated Result Value Ref Range Neutrophils % 71.7 % Neutr Abs (ANC) 7.76 (H) 1.70 - 6.10 x10(3)/mcL Lymphocytes % 20.4 % Lymphocytes Abs 2.2 0.9 - 3.2 x10(3)/mcL Monocytes % 5.3 % Monocyte Abs 0.6 0.3 - 0.9 x10(3)/mcL Eosinophils % 1.6 % Eosinophils Abs 0.2 0.0 - 0.4 x10(3)/mcL Basophils % 0.8 % Basophils Abs 0.1 0.0 - 0.1 x10(3)/mcL Immature Gran % 0.20 % Ute Gran Abs 0.02 0.00 - 0.04 x10(3)/mcL Blue Tube HOLD Result Value Ref Range Blue Hold Sample in lab. Gold Tube HOLD Result Value Ref Range Gold Hold Sample in lab. Diagnostic Tests and Imaging: Assessment and Plan: Aron Keane is a 46 y.o. 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 The patient does not have any objective findings on exam thatare new and concerning. His symptoms are very much migrainous and and similar in quality to the migraines that he has had in the past. However it is different and that this 1 is much longer, unremitti ng, and seems to be getting worse. For this reason he should have his shunt interrogated the shunt series which was done and which did not show any abnormality. Ideally an MRI of his neck and potentially brain should be ordered to evaluate for possible infection around the neck where he is complaining of pain. However due to the valve in mental he is unable to get an MRI. We will evaluate his neck with CT neck soft tissue with and without contrast. We also need to perform an LP to rule out meningitis and also to check for opening pressure. It is unclear how he presented in the past with all his dozens of shunt revisions. Patient however thinks that his presentation today is very similar to when he needed shunt revisions in the past. For these reasons we will admit him for workup and management. PLAN: Admit to neurology -LP with opening pressure and CSF studies -CT neck w/wo -Shunt series-COMPLETED AND NORMAL -Continue all home meds -synthroid 50 mcg /day -gemfibrozil -tegretol 600 / 400 -amitriptyline 100 mg QHS -continue all home medicatons -magnesium IV prn -tylenol prn -toradol prn for breakthrough pain -IVF -lovenox for dvt ppx Regular diet FULL CODE -Cody Patel MD PGY-3 Neurology Resident ADDENDUM: I spoke with neurosurgery who did not advise tapping PRODUCT ASSURANCE ENGINEER shunt due to risk of introducing an infection. For this reason we will pursue with LP as originally planned. * Consult Note - Essie Izaguirre APRN - 01/14/2017 8:10 PM EST Neurosurgery Inpatient Consultation Note Date & Time of Consult: 01/14/2017 8:12 PM Referring Service: Emergency Medicine Referring Attending: Dr. Cintron Neurosurgery Attending: Dr. Almanza Place of Consult: [id number] ID: Name: Aron Keane, 46 y.o. male Admission Date: 01/14/2017 CC: Headache HPI: This is a 46 y.o. male who presented to the ED for evaluation of headache. Patient was seen in the Neurosurgery Clinic yesterday after referral by his PCP for possible shunt malfunction. Please seeclinic note from 01/13/17 for details of that visit. His Codman was reprogrammed from 80 to 100 yesterday without any change in his headache. Aron reports approximately 3 weeks ago he developed nasal congestion and headaches. He suffers from migraines for which he takes amitriptyline but has not seen a neurologist. He was using over the counter dayquil and nyquil for his nasal congestion and headache symtoms along with ibuprofen 800mg but stopped taking all of those about 1 week ago. He reports he was on a week long course of an antibiotic prescribed by his PCP which he completed this past Thursday. Headache is over the frontal area and behind eyes. He denies fever/chills/nausea/vomiting/numbness/weakness/paresthesias. He complains of slight photophobia and feels discomfort when looking in an upward direction. No history of anticoagulation or antiplatelets. Of note, he consumes large amounts of caffeine per week. states he drinks at least 36 cans of soda a week in addition to coffee. Patient reports he has not had any caffeine for about a week. Patient does not routinely follow with neurosurgeon or neurologist PMH: PRODUCT ASSURANCE ENGINEER shunt placed at for acqueductal stenosis Epilepsy Migraines High cholesterol Multiple shunt revisions - patient reports at least 40 - last revised sometime between [id number] Cholecystectomy Medications: No current facility-administered medications on file prior to encounter. Current Outpatient Prescriptions on File Prior to Encounter Medication Sig Dispense Refill ??? TESTOSTERONE CYPIONATE IM Inject into the muscle every 14 days. ??? gemfibrozil (LOPID) 600 mg Tablet Take 600 mg by mouth 2 times daily (before meals). ??? carBAMazepine (TEGRETOL XR) 400 mg 12 hr tablet ??? amitriptyline (ELAVIL) 50 mg tablet Allergies: Allergies Allergen Reactions ??? Penicillins ??? Vancomycin Analogues ??? Vancomycin Hcl Family Hx: No family history on file. Social Hx: Social History Social History ??? Marital status: Spouse name: N/A ??? Number of children: N/A ??? Years of education: N/A Social History Main Topics ??? Smoking status: Never Smoker ??? Smokeless tobacco: Never Used ??? Alcohol use No ??? Drug use: No ??? Sexual activity: Not on file Other Topics Concern ??? Not on file Social History Narrative ??? No narrative on file Denies smoking, ETOH, or illicit drug use Lives with Pema and 2 step-daughters age 11,13. Biological daughter, age 8 lives with his ex-. Works at [employer] Vitals: Vitals: 01/14/17 1701 01/14/17 1825 BP: (!) 147/103 133/77 BP Location (NBP): Right arm Patient Position: Sitting Lying Pulse: 100 74 Resp: 20 18 Temp: 36.9 ??C (98.4 ??F) TempSrc: Oral SpO2: 99% 97% Weight: 83.9 kg (185 lb) Height: 165.1 cm (5' 5) Physical Exam: -Gen: NAD. Sitting upright on ED stretcher -HEENT: ATNC. No perimastoid or periorbital bruising. No rhinorrhea or otorrhea. Extensive scar tissue behind right ear from multiple shunt revisions. Shunt catheter palpable. [place] refills when depressed. -CV: RRR -Resp: Breathing non-labored. -GI: S/ND. Benign. -Neuro: Mental Status/Cognitive: Awake, alert, oriented x3 GCS: 15 Speech: Fluent, appropriate. Naming and repetition intact. Cranial Nerves: PERRL CN II - Visual acuity and tony grossly intact CN III, IV, - EOMI CN V - Sensation intact in V1,2 and 3 distributions CN VII - No facial asymmetry/droop CN VIII - Intact hearing bilaterally to finger rub CN IX, X - Palate and uvula midline CN XI - Trapezius 5/5 bilat CN XII - Tongue midline Tone: Normal Power: No pronator drift Segment Muscle Action Left Right C5 Deltoid Shoulder Abduction 5 5 C6 Biceps Elbow flexion 5 5 C6 Extensor carpi radialis Wrist extension 5 5 C7 Triceps Elbow extension 5 5 C8 Finger flexors Grasp 5 5 T1 Interossei Finger abduction 5 5 L2 Iliopsoas Hip flexion 5 5 L3 Quadriceps Knee extension 5 5 L4 Tibialis anterior Dorsiflexion 5 5 L5 Extensor hallucis Great toe extension 5 5 S1 Gastrocnemius Plantar flexion 5 5 Sensation in the extremities: Light touch: Intact x 4 Cerebellar exam: No dysmetria No intention tremor Labs: Recent Labs 01/14/17 1855 WBC 10.8* HGB 17.9* PLATELET 337 Recent Labs 01/14/17 1855 NA 140 K 4.1 CL 99 CO2 26 BUN 12 CREATININE 1.04 No results for input(s): PT, INR in the last 72 hours. Imaging: XR Shunt Series 01/14/17: COMPARISON: CT head earlier same day 01/14/2017; shunt series 01/13/2017. ?? FINDINGS: Right sided approach ventriculoperitoneal shunt catheter is again seen. The catheter projects over the midline calvarium without evidence of kink or discontinuity. The distal tip of the catheter projects over the anterior right lower quadrant. ?? A separate segment of a catheter projects over the mediastinum on the frontal chest radiograph. ?? The lungs are clear with no focal area of consolidation. No pneumothorax or pleural effusion. The cardiomediastinal silhouette, tabby and pulmonary vasculature appear within normal limits. ?? Nonobstructive bowel gas pattern with a paucity of gas seen throughout the small bowel. Unchanged appearance of surgical clips projecting in the right upper quadrant as well as the left lower quadrant. ?? IMPRESSION PRODUCT ASSURANCE ENGINEER shunt catheter without evidence of kink or discontinuity, unchanged compared to prior from 01/13/2017.. CT Head wo Contrast 01/14/17: COMPARISON: CT head 11/08/2004 ?? FINDINGS: No acute intracranial hemorrhage. No evidence of interval mass or mass effect. Unchanged position of the shunt. Unchanged ventricular caliber. Extra-axial spaces are normal. Mild scattered sinus mucosal disease. ?? IMPRESSION No acute intracranial hemorrhage. Unchanged ventricular caliber. CT Neck Soft Tissue w Contrast 01/14/17: COMPARISON: Correlation made with prior CTs of the head, most recent from January 07, 2017; and radiographs of the neck, most recent from January 14, 2017 ?? FINDINGS: The tip of the intracranial segment of the right frontal approach PRODUCT ASSURANCE ENGINEER shunt catheter is partially visualized, terminating within the right foramen of [place]ro. No ventriculomegaly. ?? The extracranial component of the PRODUCT ASSURANCE ENGINEER shunt catheter is visualized from the lateral aspect of the right parietal skull coursing inferiorly to the level of the right temporal bone adjacent to the mastoid air cells, where there is a shunt reservoir. The rest of the catheter courses along the lateral aspect of the right neck just superior to the right sternocleidomastoid muscle and extends inferiorly over the mid aspect of the right chest wall just medial to the right pectoralis muscle. The superior segment of the known abandoned abandoned shunt catheter projects anterior to the sternum and extends over the left anterior chest wall. There is no fluid collection or notable inflammatory changes around the course of the visualized course of the shunt catheter. ?? The soft tissues of the neck are normal. There is no cervical lymphadenopathy. The parotid and submandibular glands are normal. The nasal, oral and hypopharynx and upper airways are normal. There is normal cervical spine alignment. The visualized intracranial structures are normal. There is minimal dependent atelectasis at the lung apices. ?? IMPRESSION No focal fluid collection or inflammatory changes along the visualized extracranial course of the right PRODUCT ASSURANCE ENGINEER shunt catheter. ?? Assessment: This is a 46 y.o. 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 This does not appear to be a shunt malfunction. History of chronic migraines, recent upper respiratory illness with residual nasal congestion and frontal sinus tenderness and excessive caffeine intake with abrupt withdrawal. Differential diagnosis includes, but is not limited to: caffeine withdrawal headache, sinusitis, headache NOS v. Migraine. Plan: -Would recommend patient be evaluated by Neurology for their recommendations. -There is no role for Neurosurgical intervention at this time. Please page [phone] if you require further assistance from us. -Codman was reprogrammed to 100. Patient can follow up with Dr. Diaz or Cl Atkins PA-C in clinic in 1 week. I have reviewed the above with Dr. Jimenez, who agrees with the assessment and plan. * ED Triage - Missy Hernandez RN - 01/14/2017 5:01 PM EST Patient presents to the ED tonight at urging of Neurology for possible shunt tap. Patient has had shunt in place all his life. Has been experiencing dizziness, lightheadedness, vomiting, headache andredness/swelling to shunt site for a couple weeks. Patient was seen yesterday by neurology for a shunt adjustment but was told to return for worsening complications or symptoms. PWD, NAD, RRR even and unlabored, speaking in full logical sentences. Patient appears uncomfortable. Ambulatory with steady gait. A+Ox4. documented in this encounter Plan of Treatment Not on file documented as of this encounter Procedures Procedure Name Priority Date/Time Associated Diagnosis Comments XR SKULL Routine 01/19/2017 3:55 PM EST MISCELLANEOUS LAB REQUEST Routine 01/19/2017 2:21 PM EST MRI CERVICAL SPINE WITH CONTRAST Routine 01/19/2017 11:[address] VENOGRAM BRAIN Routine 01/16/2017 8:[address] CAROTIDS AND [place] W CONTRAST Routine 01/16/2017 8:08 PM EST XR FLUORO GUIDED LUMBAR PUNCTURE Routine 01/16/2017 3:38 PM EST HSV 1 AND 2 PCR Routine 01/16/2017 3:20 PM EST 4 TOTAL TUBES SENT CSF Routine 7 3:20 PM EST CSF CELL COUNT Routine 01/16/2017 3:20 PM EST CSF DESC 4 Routine 01/16/2017 3:20 PM EST CSF DESC 3 Routine 01/16/2017 3:20 PM EST CSF DESC 2 Routine 01/16/2017 3:20 PM EST CSF DESC 1 Routine 01/16/2017 3:20 PM EST VZV PCR, CSF Routine 01/16/2017 3:20 PM EST ENTEROVIRUS PCR, CSF Routine 01/16/2017 3:20 PM EST OLIGOCLONAL BANDING CSF Routine 01/16/2017 3:20 PM EST IGG INDEX CSF Routine 01/16/2017 3:20 PM EST CSF CULTURE Routine 01/16/2017 3:20 PM EST PROTEIN LEVEL CSF Routine 01/16/2017 3:2 0 PM EST GLUCOSE LEVEL CSF Routine 01/16/2017 3:2 0 PM EST HEMOGRAM STAT 01/16/2017 10:12 AM EST DIFFERENTIAL, AUTOMATED STAT 01/16/2017 10:12 AM EST APTT STAT 01/16/2017 10:12 AM EST PROTHROMBIN TIME STAT 01/16/2017 10:1 2 AM EST CBC (WITH DIFF) STAT 01/16/2017 10:12 AM EST URINE HOLD STAT 01/15/2017 9:15 AM EST URINALYSIS WITH REFLEX CULTURE STAT 01/15/2017 9:15 AM EST TSH CASCADE STAT 01/15/2017 8:55 AM EST CRP, ACUTE INFLAMMATION STAT 01/15/2017 8:55 AM EST HEMOGRAM STAT 01/15/2017 8:55 AM EST DIFFERENTIAL, AUTOMATED STAT 01/15/2017 8:55 AM EST SEDIMENTATION RATE STAT 01/15/2017 8: 55 AM EST CBC (WITH DIFF) STAT 01/15/2017 8:55 AM EST PHOSPHORUS STAT 01/15/2017 8:55 AM EST MAGNESIUM STAT 01/15/2017 8:55 AM EST CARBAMAZEPINE LEVEL, TOTAL STAT 01/15/2017 8:55 AM EST HEPATIC FUNCTION PANEL STAT 7 8:55 AM EST BASIC METABOLIC PANEL STAT 01/15/2017 8:[address] NECK SOFT TISSUE W CONTRAST STAT 01/15/2017 3:01 AM EST EKG 12-LEAD STAT 01/15/2017 1:58 AM EST Persistent headaches XR SHUNT SERIES STAT 01/14/2017 8:[address] HEAD WO CONTRAST (GENERIC) STAT 01/14/2017 7:52 PM EST HEMOGRAM STAT 01/14/2017 6:55 PM EST DIFFERENTIAL, AUTOMATED STAT 01/14/2017 6:55 PM EST GOLD TUBE HOLD STAT 01/14/2017 6:55 PM EST BLUE TUBE HOLD STAT 01/14/2017 6:55 PM EST CBC (WITH DIFF) STAT 01/14/2017 6:55 PM EST HEPATIC FUNCTION PANEL STAT 7 6:55 PM EST BASIC METABOLIC PANEL STAT 01/14/2017 6:55 PM EST documented in this encounter Results * XR Skull (Generic) (01/19/2017 3:55 PM EST) Anatomical Region Laterality Modality N/A Digital Radiogra phy Impressions 01/19/2017 4:14 PM EST FINDINGS and impression: Codman valve settin mm H2o Narrative 01/19/2017 4:14 PM EST EXAMINATION: XR SKULL (GENERIC) CLINICAL HISTORY: Codman valve set to 80. XR for confirmation TECHNIQUE: 1 view COMPARISON: None Procedure Note Brittaney Chen MD - 01/19/2017 EXAMINATION: XR SKULL (GENERIC) CLINICAL HISTORY: Codman valve set to 80. XR for confirmation TECHNIQUE: 1 view COMPARISON: None IMPRESSION FINDINGS and impression: Codman valve settin mm H2o Veronica Yang MD IMG DX ORDERABLES * Miscellaneous Lab request (01/19/2017 2:21 PM EST) Label Request received in lab. [facility] Cerebrospinal fluid specimen (specimen) 01/19/2017 2:21 PM EST 01/20/2017 10:58 AM EST Narrative Resulting Agency Comment Spec In Lab Lul Alvarez MD LAB SEND OUT ORDERAB LES [facility] [place] [address] * MRI Cervical Spine w Contrast (01/19/2017 11:02 AM EST) Anatomical Region Laterality Modality C-spine Magnetic Resonan ce Impressions 01/19/2017 3:27 PM EST 1. Simple appearing dorsal extradural fluid collection in the lower cervical and upper thoracic region. This could be related to recent lumbar puncture. Consider thoracic images to evaluate the extent of the collection is clinically indicated. 2. Mild cervical spine spondylosis. Narrative 01/19/2017 3:27 PM EST EXAMINATION: MRI CERVICAL SPINE W CONTRAST CLINICAL HISTORY: neck pain w radicular sx. s/p PRODUCT ASSURANCE ENGINEER shunt. eval for stenosis vs epidural abscess TECHNIQUE: MR the cervical spine performed without the use of intravenous contrast. COMPARISON: CT 01/15/2017 FINDINGS: Overall cervical alignment is unremarkable. There is no focal, aggressive appearing marrow lesion. Cervical cord signal is normal. 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 Shunt catheter is seen running through the superficial soft tissues on the right. There is a simple appearing extradural fluid collection dorsal to the thecal sac extending from C6-C7 inferiorly to the upper thoracic spine. This produces minimal mass effect on the thecal sac. Findings at specific levels: C2-C3: No central canal or foraminal stenosis. There is mild facet arthropathy. C3-C4: Uncovertebral and facet degenerative change produces minimal right foraminal narrowing. No central canal stenosis. C4-C5: There are mild facet degenerative changes with mild right foraminal narrowing. No central canal stenosis. C5-C6: There is a small central disc protrusion mildly indenting the ventral thecal sac and contacting the ventral cord. There are uncovertebral and facet degenerative changes without foraminal stenosis. C6-7: There is a central and right paracentral disc protrusion mildly indenting the ventral thecal sac. There is minimal left foraminal narrowing. C7-T1: No central canal or foraminal stenosis. Procedure Note Isac Rob MD - 01/19/2017 EXAMINATION: MRI CERVICAL SPINE W CONTRAST CLINICAL HISTORY: neck pain w radicular sx. s/p PRODUCT ASSURANCE ENGINEER shunt. eval forstenosis vs epidural abscess TECHNIQUE: MR the cervical spine performed without the use ofintravenous contrast. COMPARISON: CT 01/15/2017 FINDINGS: Overall cervical alignment is unremarkable. There is no focal, aggressive appearing marrow lesion. Cervical cord signal is normal. Thereis a hemangioma in the right occipital condyle. Shunt catheter is seenrunning through the superficial soft tissues on the right. There is a simple appearing extradural fluid collection dorsal to thethecal sac extending from C6-C7 inferiorly to the upper thoracic spine. Thisproduces minimal mass effect on the thecal sac. Findings at specific levels: C2-C3: No central canal or foraminal stenosis. There is mild facetarthropathy. C3-C4: Uncovertebral and facet degenerative change produces minimalright foraminal narrowing. No central canal stenosis. C4-C5: There are mild facet degenerative changes with mild rightforaminal narrowing. No central canal stenosis. C5-C6: There is a small central disc protrusion mildly indenting theventral thecal sac and contacting the ventral cord. There are uncovertebral andfacet degenerative changes without foraminal stenosis. C6-7: There is a central and right paracentral disc protrusion mildlyindenting the ventral thecal sac. There is minimal left foraminal narrowing. C7-T1: No central canal or foraminal stenosis. IMPRESSION 1. Simple appearing dorsal extradural fluid collection in the lowercervical and upper thoracic region. This could be related to recent lumbar puncture.Consider thoracic images to evaluate the extent of the collection is clinically indicated. 2. Mild cervical spine spondylosis. Veronica Yang MD [facility] MRI ORDERABLES * CT Carotids & [place] w Contrast (01/16/2017 8:08 PM EST) Anatomical Region Laterality Modality Neck, Head Computed Tomogra phy Impressions 01/16/2017 8:50 PM EST No hemodynamically significant stenosis or vascular thrombosis. Shunt catheter immediately adjacent to the anterior cerebral arteries. Narrative 01/16/2017 8:50 PM EST EXAMINATION: CT CAROTIDS AND [place] W CONTRAST CLINICAL HISTORY: persistent headache with neck pain, rigt side, PMH congenital aqueductal stenosis TECHNIQUE: CTA acquired of the neck and head after administration of intravenous contrast, Omnipaque 350, 65 cc. MIP images were created. COMPARISON: CT head 01/14/2017 FINDINGS: Partially imaged lung apices are unremarkable. Review of bone windows is unremarkable. Normal configuration of the great vessels which are widely patent. Subclavian arteries are normal. Right common carotid artery is normal in course and caliber. Trace focal stenosis of the right ICA origin. Right ICA is otherwise normal. Left common carotid artery is normal in course and caliber. Normal cervical left ICA. Right vertebral artery is normal in course and caliber. Left vertebral artery is normal in course and caliber. Intracranial vasculature: No evidence of significant stenosis, vascular thrombosis, or aneurysm. The right frontal approach ventricular shunt catheter is immediately adjacent to the anterior cerebral arteries and demonstrates slight mass effect on them.. Procedure Note Sarah Sinha MD - 01/16/2017 EXAMINATION: CT CAROTIDS AND [place] W CONTRAST CLINICAL HISTORY: persistent headache with neck pain, rigt side, PMHcongenital aqueductal stenosis TECHNIQUE: CTA acquired of the neck and head after administration of intravenouscontrast, Omnipaque 350, 65 cc. MIP images were created. COMPARISON: CT head 01/14/2017 FINDINGS: Partially imaged lung apices are unremarkable. Review of bone windows is unremarkable. Normal configuration of the great vessels which are widely patent.Subclavian arteries are normal. Right common carotid artery is normal in course and caliber. Trace focal stenosis of the right ICA origin. Right ICA is otherwise normal. Left common carotid artery is normal in course and caliber. Normalcervical left ICA. Right vertebral artery is normal in course and caliber. Left vertebral artery is normal in course and caliber. Intracranial vasculature: No evidence of significant stenosis, vascular thrombosis, or aneurysm. The right frontal approach ventricular shuntcatheter is immediately adjacent to the anterior cerebral arteries anddemonstrates slight mass effect on them.. IMPRESSION No hemodynamically significant stenosis or vascular thrombosis. Shunt catheter immediately adjacent to the anterior cerebral arteries. 8:50 PM Lul Alvarez MD [facility] CT ORDERABLES * CT Venogram of Brain (01/16/2017 8:08 PM EST) Anatomical Region Laterality Modality Head Computed Tomogra phy Impressions 01/16/2017 8:51 PM EST No evidence of venous thrombosis. Narrative 01/16/2017 8:51 PM EST EXAMINATION: CT VENOGRAM OF BRAIN CLINICAL HISTORY: Persistent headache, PMH of Congenital aqueductal stenosis TECHNIQUE: CTV acquired of the head after administration of intravenous contrast, Omnipaque 350, 65 cc. MIP images were created. COMPARISON: CT head 01/14/2017 FINDINGS: No evidence of venous thrombosis. Procedure Note Sarah Sinha MD - 01/16/2017 EXAMINATION: CT VENOGRAM OF BRAIN CLINICAL HISTORY: Persistent headache, PMH of Congenital aqueductalstenosis TECHNIQUE: CTV acquired of the head after administration of intravenous contrast,Omnipaque 350, 65 cc. MIP images were created. COMPARISON: CT head 01/14/2017 FINDINGS: No evidence of venous thrombosis. IMPRESSION No evidence of venous thrombosis. 8:51 PM Lul Alvarez MD [facility] CT ORDERABLES * XR Fluoro Lumbar Puncture (01/16/2017 3:38 PM EST) Anatomical Region Laterality Modality L-spine N/A Radio Fluoroscop y Impressions 01/16/2017 4:08 PM EST Technically successful fluoroscopically guided lumbar puncture. Resident/Fellow: Claire Vicente MD Attending: Errol Clinton MD I, Dr. Clinton was present for the entire procedure. I have personally reviewed the image(s) and the residents interpretation and agree with the findings, Errol Dillon MD at 01/16/2017 4:08 PM Narrative 01/16/2017 4:08 PM EST EXAMINATION: XR FLUORO LUMBAR PUNCTURE DIAGNOSIS CLINICAL HISTORY: Rule out of MULTIPLE RESAW OPERATOR infection, please meassure opening pressure and obtained 4 mls of CSF per tube, attempted at bedside ??unsuccessfully COMPARISON: None TECHNIQUE: Informed consent was obtained after the risks and benefits were discussed. A preprocedural timeout was performed. With the patient in the prone position, the L2-L3 interspace was localized with fluoroscopy. The site was then marked, and the underlying skin was prepped and draped in a sterile fashion. Less than 5 mL of 1% lidocaine was used for local anesthesia. Using fluoroscopic guidance, a 22-gauge spinal needle was advanced into the L2-L3 interspace. The opening pressure was 14 cm H20. Approximately 16 mL of clear CSF was removed and sent to the lab. The stylet was replaced and the needle was removed. The patient tolerated the procedure well without immediate complication. Total fluoroscopy time: 0.45 min FINDINGS: 1. ??16 cc of clear cerebrospinal fluid. 2. ??Opening pressure of 14 cm H20. Procedure Note Errol Clinton MD - 01/16/2017 EXAMINATION: XR FLUORO LUMBAR PUNCTURE DIAGNOSIS CLINICAL HISTORY: Rule out of MULTIPLE RESAW OPERATOR infection, please meassure openingpressure and obtained 4 mls of CSF per tube, attempted at bedside unsuccessfully COMPARISON: None TECHNIQUE: Informed consent was obtained after the risks and benefitswere discussed. A preprocedural timeout was performed. With the patient in theprone position, the L2-L3 interspace was localized with fluoroscopy. The sitewas then marked, and the underlying skin was prepped and draped in a sterilefashion. Less than 5 mL of 1% lidocaine was used for local anesthesia. Usingfluoroscopic guidance, a 22-gauge spinal needle was advanced into the L2-L3 interspace.The opening pressure was 14 cm H20. Approximately 16 mL of clear CSF wasremoved and sent to the lab. The stylet was replaced and the needle was removed. Thepatient tolerated the procedure well without immediate complication. Total fluoroscopy time: 0.45 min FINDINGS: 1. 16 cc of clear cerebrospinal fluid. 2. Opening pressure of 14 cm H20. IMPRESSION Technically successful fluoroscopically guided lumbar puncture. Resident/Fellow: Claire Vicente MD Attending: Errol Clinton MD I, Dr. Clinton was present for the entire procedure. I have personally reviewed the image(s) and the residents interpretationand agree with the findings, Errol Dillon MD at 01/16/2017 4:08 PM 4:08 PM Lul Alvarez MD IMG FLUORO ORDERABLE S * CSF Cell Count (01/16/2017 3:20 PM EST) Tube # counted 4 [facility] Total Nucleated Cell Count, CSF 3 0 - 5 /mcl [facility] Comment: If Nucleated CSF [...] must be correlated with clinical condition. RBC Count CSF 0 /mcl [facility] Cerebrospinal fluid specimen (specimen) 01/16/2017 3:20 PM EST 01/16/2017 4:33 PM EST Narrative Resulting Agency Comment Spec In Lab Lul Alvarez MD BODY FLUIDS AND STOO LS ORDERABLES [facility] [place] [address] * CSF DESC 4 (01/16/2017 3:20 PM EST) Tube Num CSF [address] [facility] Color, CSF 4 Straw [facility] Appearance, CSF [address] [facility] Total Vol, CSF [address] [facility] Cerebrospinal fluid specimen (specimen) 01/16/2017 3:20 PM EST 01/16/2017 4:33 PM EST Narrative Resulting Agency Comment Spec In Lab Lul Alvarez MD BODY FLUIDS AND STOO LS ORDERABLES Performing Organization Address City/[facility]/ZIP Co de Phone Number [facility] [place] [address] * CSF DESC 3 (01/16/2017 3:20 PM EST) Tube Num CSF [address] [facility] Color, CSF 3 Straw [facility] Appearance, CSF [address] [facility] Total Vol, CSF [address] [facility] Cerebrospinal fluid specimen (specimen) 01/16/2017 3:20 PM EST 01/16/2017 4:33 PM EST Narrative Resulting Agency Comment Spec In Lab Lul Alvarez MD BODY FLUIDS AND STOO LS ORDERABLES Performing Organization Address City/[facility] Co de Phone Number [facility] [place] [address] * CSF DESC 2 (01/16/2017 3:20 PM EST) Tube Num CSF #[address] [facility] Color, CSF 2 Yellow Colorless [facility] Appearance, CSF [address] [facility] Total Vol, CSF [address] [facility] Cerebrospinal fluid specimen (specimen) 01/16/2017 3:20 PM EST 01/16/2017 4:33 PM EST Narrative Resulting Agency Comment Spec In Lab Lul Alvarez MD BODY FLUIDS AND STOO LS ORDERABLES Performing Organization Address [facility] Co de Phone Number [facility] [place] [phone] * CSF DESC 1 (01/16/2017 3:20 PM EST) Pathologist [facility] Tube Num CSF #[address] [facility] Color, CSF Straw [facility] Appearance, CSF Clear Clear [facility] Total Vol, CSF 4.[address] [facility] Cerebrospinal fluid specimen (specimen) 01/16/2017 3:20 PM EST 01/16/2017 4:33 PM EST Narrative Resulting Agency Comment Spec In Lab Lul Alvarez MD BODY FLUIDS AND STOO LS ORDERABLES Performing Organization Address [facility] de Phone Number [facility] [place] [address] * VZV PCR, CSF (01/16/2017 3:20 PM EST) Varicella-Zo ster PCR (MAY) Test ?Result ? Flag ??Unit ??RefValue ------- Varicella-Zoster Virus PCR ??Specimen Source ? csf ??Varicella-Zoster Virus PCR ?Negative ? Negative ? ---ADDITIONAL INFORMATION------- ?This test was developed and its performance characteristics ?determined by [facility] in a manner consistent with CLIA ?requirements. This test has not been cleared or approved by ?the U.S. Food and Drug Administration. ?Test Performed by: ?[facility] ?[address], [place] [id number] [place] [address] LABORATORY Cerebrospinal fluid specimen (specimen) 01/16/2017 3:20 PM EST 01/19/2017 12:59 PM EST Narrative Resulting Agency Comment Spec In Lab Lul Alvarez MD LAB SEND OUT ORDERAB LES [facility] [place] [address] * Oligoclonal Banding CSF (01/16/2017 3:20 PM EST) Oligo Bands Csf (MAY) Test ? Result ?Flag ??Unit ? RefValue Oligoclonal Banding ??Serum Bands ?0 ? bands ??CSF Bands ?0 ? bands ??CSF Olig Bands Interpretation ?0 ? bands ?<4 ?The oligoclonal band assay detected 3 or fewer unique IgG ?bands in the CSF. This is a negative result. ?Test Performed by: ?[facility] ?[address] [place] [address] [facility] [place] Review 01/16/2017 3:20 PM EST 01/19/2017 12:59 PM EST Narrative Resulting Agency Comment Spec In Lab Lul Alvarez MD LAB SEND OUT ORDERAB LES Performing Organization Address City/State/[facility] Co de Phone Number [facility] [place] [address] * (ABNORMAL) IgG Index CSF (01/16/2017 3:20 PM EST) IgG Index, CSF (MAY) Test ? Result ?Flag ??Unit ? RefValue ------- Cerebrospinal Fl, CSF, IgG Index ??IgG Index, CSF ? 0.50 ? <=0.85 ??IgG, CSF ? 19.5 ? H ?mg/dL ?<=8.1 ? ---ADDITIONAL INFORMATION------- ?This test has been modified from the marine gear keeper's ?instructions. Its performance characteristics were ?determined by [facility] in a manner consistent with ?CLIA requirements. This test has not been cleared or ?approved by the U.S. Food and Drug Administration. ??Albumin, CSF ? 192.0 ?H ?mg/dL ?<=27.0 ? ---ADDITIONAL INFORMATION------- ?This test has been modified from the marine gear keeper's ?instructions. Its performance characteristics were ?determined by [facility] in a manner consistent with ?CLIA requirements. This test has not been cleared or ?approved by the U.S. Food and Drug Administration. ??IgG/Albumin, CSF ? 0.10 ? <=0.21 ??Synthesis Rate, CSF ?14.92 ?H ?mg/24 h ??<=12 ??IgG, S ? 962 ? mg/dL ?567 - 0590 ??Albumin, S ? 4600 ? H ?mg/dL ?3200 - 4800 ??IgG/Albumin, S ? 0.20 ? <=0.40 ?Test Performed by: ?[facility] ?[address] [place] [address](A) [facility] Potter Review 01/16/2017 3:20 PM EST 01/19/2017 12:59 PM EST Narrative Resulting Agency Comment Spec In Lab Lul Alvarez MD LAB SEND OUT ORDERAB LES Performing Organization Address [facility] Co de Phone Number [facility] [place] [address] * Enterovirus PCR, CSF (01/16/2017 3:20 PM EST) Pathologist [facility] ENTV PCR Negative Negative [facility] Cerebrospinal fluid specimen (specimen) 01/16/2017 3:20 PM EST 01/16/2017 4:52 PM EST Narrative Resulting Agency Comment Spec In Lab Lul Alvarez MD MICROBIOLOGY - GENER AL ORDERABLES Performing Organization Address [facility] Co de Phone Number [facility] [place] [address] * HSV 1 and 2 PCR (01/16/2017 3:20 PM EST) HSV-1 PCR Not Detected Not Detected [facility] HSV-2 PCR Not Detected Not Detected [facility] HSV Source CSF [facility] Comment: The only FDA approved specimen types for this assay are CSF and genital lesions. Cerebrospinal fluid specimen (specimen) 01/16/2017 3:20 PM EST 01/16/2017 4:51 PM EST Narrative Resulting Agency Comment Spec In Lab Lul Alvarez MD MICROBIOLOGY - GENER AL ORDERABLES Performing Organization Address [facility] Co de Phone Number [facility] [place] [address] * CSF Culture (01/16/2017 3:20 PM EST) Central Nervous System Culture No growth [facility] Gram Stain White Blood Cells seen No microorganisms seen. [facility] Cerebrospinal fluid specimen (specimen) 01/16/2017 3:20 PM EST 01/16/2017 4:51 PM EST Narrative Resulting Agency Comment Spec In Lab Lul Alvarez MD MICROBIOLOGY - GENER AL ORDERABLES Performing Organization Address [facility] Co de Phone Number [facility] [place] [address] * Glucose Level CSF (01/16/2017 3:20 PM EST) Glucose, CSF 62 mg/dL [facility] Comment:CSF at equilibrium e quals approximately 60-80% of plasma glucose. Cerebrospinal fluid specimen (specimen) 01/16/2017 3:20 PM EST 01/16/2017 4:23 PM EST Narrative Resulting Agency Comment Spec In Lab Lul Alvarez MD BODY FLUIDS AND STOO LS ORDERABLES Performing Organization Address [facility] Co de Phone Number [facility] [place] [address] * (ABNORMAL) Protein Level CSF (01/16/2017 3:20 PM EST) Protein, CSF 263(H) 15 - 45 mg/dL [facility] Xanthochromia Slight [facility] Comment: Collection date/time has been modified to: 15:20:00. ??Previous collection date/time: 16:09:00. Corrected from Slight on 01/16/17 04:34 by Memo Wilde Cerebrospinal fluid specimen (specimen) 01/16/2017 3:20 PM EST 01/16/2017 4:23 PM EST Narrative Resulting Agency Comment Spec In Lab Lul Alvarez MD BODY FLUIDS AND STOO LS ORDERABLES Performing Organization Address City/[facility]/[place] [address] * Differential, Automated (01/16/2017 10:12 AM EST) Neutrophil % 61.0 % [facility] Neutrophil Absolute 4.92 1.70 - 6.10 x10(3)/[facility] Lymph % 28.7 % [facility] Lymphocytes Abs 2.3 0.9 - 3.2 x10(3)/[facility] Monocyte % 6.7 % [facility] Monocyte Abs 0.5 0.3 - 0.9 x10(3)/[facility] Eos % 2.8 % [facility] Eosinophils Abs 0.2 0.0 - 0.4 x10(3)/[facility] Basophil % 0.6 % [facility] Baso Absolute 0.0 0.0 - 0.1 x10(3)/[facility] Immature Gran % 0.20 % [facility] Comment: Immature granulocytes(IG's)percentage and absolute count will include metamyelocytes, myelocytes, and promyelocytes. Blood smears from CBCs yielding IG's will be scanned manually for concordance. If this scan disagrees with the automated IG or if promyelocytes are noted, a manual differential will be performed. Immature Gran Absolute 0.02 0.00 - 0.04 x10(3)/[facility] Blood specimen (specimen) 01/16/2017 10:12 AM EST 01/16/2017 10:25 AM EST Narrative Resulting Agency Comment Spec In Lab Lul Alvarez MD HEMATOLOGY ORDERABLE [place] [address] * Hemogram (01/16/2017 10:12 AM EST) White Blood Cell 8.1 4.0 - 9.5 x10(3)/[facility] Red Blood Cell 4.91 4.58 - 5.54 x10(6)/[facility] Hemoglobin 15.5 13.7 - 16.5 gm/dL [facility] Hematocrit 45.7 40.5 - 48.5 % [facility] Mean Cell Volume 93.1 82.9 - 93.[address] [facility] Mean Cell Hemoglobin 31.6 27.5 - 32.[address] [facility] Mean Cell Hemoglobin Concentration 33.9 32.0 - 35.7 gm/dL [facility] Platelet 276 145 - 357 x10(3)/[facility] RDW Standard Deviation 40.3 36.0 - 45.0 [facility] RDW coefficient of variation 11.8 11.4 - 13.8 % [facility] Mean Platelet Volume 8.9 7.6 - 12.9 [facility] NRBC% auto 0.0 % [facility] NRBC Absolute 0.000 0.000 - 0.000 x10(3)/[facility] Blood specimen (specimen) 01/16/2017 10:12 AM EST 01/16/2017 10:25 AM EST Narrative Resulting Agency Comment Spec In Lab Lul Alvarez MD HEMATOLOGY ORDERABLE S [facility] [place] [address] * APTT (01/16/2017 10:12 AM EST) Partial Thromboplastin Time 29 25 - [address] [facility] Comment: The recommended therapeutic range for full dose, unfractionated heparin at [facility] is 80 ? 114 seconds. The use of the anti-Xa (heparin) level rather than the PTT is recommended for monitoring anticoagulation intensity in critically ill patients receiving unfractionated heparin by continuous IV infusion. Blood specimen (specimen) 01/16/2017 10:12 AM EST 01/16/2017 10:25 AM EST Narrative Resulting Agency Comment Spec In Lab Lul Alvarez MD HEMATOLOGY ORDERABLE S Performing Organization Address [facility] Co de Phone Number [facility] [place] [address] * Prothrombin Time (01/16/2017 10:12 AM EST) Prothrombin Time 13.4 11.8 - 14.[address] [facility] International Normalization Ratio 1.0 0.9 - 1.1 [facility] Comment: An INR <2.0 indicates [...] be appropriate depending on clinical circumstances. Blood specimen (specimen) 01/16/2017 10:12 AM EST 01/16/2017 10:25 AM EST Narrative Resulting Agency Comment Spec In Lab Lul Alvarez MD HEMATOLOGY ORDERABLE S Performing Organization Address [facility] Co de Phone Number [facility] [place] [address] * Urine Hold (01/15/2017 9:15 AM EST) Hold, Urine Sample in lab. [facility] Urine specimen (specimen) Urine / Unknown 01/15/2017 9:15 AM EST 01/15/2017 9:33 AM EST Ray Cintron MD URINE ORDERABLES Performing Organization Address City/[facility]/ZIP Co de Phone Number [facility] [place] [address] * Urinalysis with reflex Culture (01/15/2017 9:15 AM EST) Glucose, Urine Dipstick Negative Negative mg/dL [facility] Protein, Urine Dipstick Negative Negative mg/dL [facility] Bilirubin, Urine Dipstick Negative Negative mg/dL [facility] Comment: Clinical correlation required for positive Urine Bilirubin results as false positive may occur with some drugs and drug related products. If a false positive is suspected a serum total bilirubin should be considered if clinically indicated. Urobilinogen, Urine Dipstick Normal Normal mg/dL [facility] pH, Urn (dipstick) 6.0 5.0 - 8.0 [facility] Blood, Urine Dipstick Negative Negative mg/dL [facility] Ketone, Urine Dipstick Negative Negative mg/dL [facility] Nitrite, Urine Dipstick Negative Negative [facility] Leukocytes, Urine Dipstick Negative Negative [facility] Appearance, Urine Dipstick Clear Clear [facility] Specific Hosmer Urine Automated 1.015 1.002 - 1.030 [facility] Color, Urine Dipstick Yellow Yellow [facility] Reflex to Culture No [facility] Urine specimen (specimen) 01/15/2017 9:15 AM EST 01/15/2017 9:32 AM EST Narrative Resulting Agency Comment Spec In Lab Ray Cintron MD URINE ORDERABLES [facility] [place] [address] * Differential, Automated (01/15/2017 8:55 AM EST) Neutrophil % 65.3 % [facility] Neutrophil Absolute 5.64 1.70 - 6.10 x10(3)/[facility] Lymph % 25.4 % [facility] Lymphocytes Abs 2.2 0.9 - 3.2 x10(3)/[facility] Monocyte % 6.2 % [facility] Monocyte Abs 0.5 0.3 - 0.9 x10(3)/[facility] Eos % 2.3 % [facility] Eosinophils Abs 0.2 0.0 - 0.4 x10(3)/[facility] Basophil % 0.6 % [facility] Baso Absolute 0.0 0.0 - 0.1 x10(3)/[facility] Immature Gran % 0.20 % [facility] Comment: Immature granulocytes(IG's)percentage and absolute count will include metamyelocytes, myelocytes, and promyelocytes. Blood smears from CBCs yielding IG's will be scanned manually for concordance. If this scan disagrees with the automated IG or if promyelocytes are noted, a manual differential will be performed. Immature Gran Absolute 0.02 0.00 - 0.04 x10(3)/[facility] Blood specimen (specimen) 01/15/2017 8:55 AM EST 01/15/2017 9:38 AM EST Narrative Resulting Agency Comment Spec In Lab Ray Cintron MD HEMATOLOGY ORDERAB LES [facility] [place] [address] * (ABNORMAL) Hemogram (01/15/2017 8:55 AM EST) White Blood Cell 8.6 4.0 - 9.5 x10(3)/ L [facility] Red Blood Cell 5.40 4.58 - 5.54 x10(6)/ L [facility] Hemoglobin 17.1(H) 13.7 - 16.5 gm/dL [facility] Hematocrit 48.6(H) 40.5 - 48.5 % [facility] Mean Cell Volume 90.0 82.9 - 93.[address] [facility] Mean Cell Hemoglobin 31.7 27.5 - 32.[address] [facility] Mean Cell Hemoglobin Concentration 35.2 32.0 - 35.7 gm/dL [facility] Platelet 331 145 - 357 x10(3)/mc L [facility] RDW Standard Deviation 38.9 36.0 - 45.[address] [facility] RDW coefficient of variation 11.8 11.4 - 13.8 % [facility] Mean Platelet Volume 9.3 7.6 - 12.[address] [facility] NRBC% auto 0.0 % [facility] NRBC Absolute 0.000 0.000 - 0.000 x10(3)/mc L [facility] Blood specimen (specimen) 01/15/2017 8:55 AM EST 01/15/2017 9:38 AM EST Narrative Resulting Agency Comment Spec In Lab Ray Cintron MD HEMATOLOGY ORDERAB LES Performing Organization Address City/[facility]/ZIP Co de Phone Number [facility] [place] [address] * TSH Stephens (01/15/2017 8:55 AM EST) Thyroid Stimulating Hormone 3.37 0.27 - 4.20 mlU/ML [facility] Blood specimen (specimen) 01/15/2017 8:55 AM EST 01/15/2017 9:38 AM EST Narrative Resulting Agency Comment Spec In Lab Ray Cintron MD CHEMISTRY ORDERABL ES Performing Organization Address City/[facility]/ZIP Co de Phone Number [facility] [place] [address] * Sedimentation rate (01/15/2017 8:55 AM EST) Sedimentation Rate Automated 7 0 - 15 mm/hr [facility] Blood specimen (specimen) 01/15/2017 8:55 AM EST 01/15/2017 9:38 AM EST Narrative Resulting Agency Comment Spec In Lab Ray Cintron MD HEMATOLOGY ORDERAB LES Performing Organization Address [facility] Co de Phone Number [facility] [place] [address] * CRP, acute inflammation (01/15/2017 8:55 AM EST) [facility] C-Reactive Protein 2.6 <=4.9 mg/L [facility] Blood specimen (specimen) 01/15/2017 8:55 AM EST 01/15/2017 9:38 AM EST Narrative Resulting Agency Comment Spec In Lab Ray Cintron MD CHEMISTRY ORDERABL ES Performing Organization Address [facility] Phone Number [facility] [place] [address] * Hepatic Function Panel (01/15/2017 8:55 AM EST) [facility] Protein, Total 7.3 6.1 - 8.0 gm/dL [facility] Albumin 4.3 3.2 - 5.2 gm/dL [facility] Aspartate Aminotransferase 9 0 - 39 unit/L [facility] Alanine Aminotransferase 6 0 - 55 unit/L [facility] Alkaline Phosphatase 84 40 - 120 unit/L [facility] Bilirubin, Total 0.3 0.2 - 1.3 mg/dL [facility] Bilirubin, Direct 0.1 0.0 - 0.3 mg/dL [facility] Blood specimen (specimen) 01/15/2017 8:55 AM EST 01/15/2017 9:38 AM EST Narrative Resulting Agency Comment Spec In Lab Ray Cintron MD CHEMISTRY ORDERABL ES Performing Organization Address [facility] Co de Phone Number [facility] [place] [address] * (ABNORMAL) Phosphorus (01/15/2017 8:55 AM EST) Phosphorus 1.5(L) 2.5 - 4.5 mg/dL [facility] Blood specimen (specimen) 01/15/2017 8:55 AM EST 01/15/2017 9:38 AM EST Narrative Resulting Agency Comment Spec In Lab Ray Cintron MD CHEMISTRY ORDERABL ES Performing Organization Address [facility] Phone Number [facility] [place] [address] * (ABNORMAL) Magnesium (01/15/2017 8:55 AM EST) Magnesium 1.28(H) 0.69 - 1.07 mmol/L [facility] Blood specimen (specimen) 01/15/2017 8:55 AM EST 01/15/2017 9:38 AM EST Narrative Resulting Agency Comment Spec In Lab Ray Cintron MD CHEMISTRY ORDERABL ES Performing Organization Address [facility] de Phone Number [facility] [place] [address] * Basic Metabolic Panel (non-fasting) (01/15/2017 8:55 AM EST) Glucose 137 65 - 199 mg/dL [facility] Comment:Diabetes: >=200 mg/d L plus symptoms Blood Urea Nitrogen 15 10 - 20 mg/dL [facility] Creatinine 1.03 0.80 - 1.50 mg/dL [facility] Sodium 139 135 - 145 mmol/L [facility] Potassium 3.7 3.5 - 5.0 mmol/L [facility] Comment: Please note: ??Patients with WBC >100,000 may have falsely elevated Potassium levels. ??For accurate Potassium quantification in these patients send serum separator tube (gold top) for subsequent determinations. ??Contact the Clinical Chemistry Laboratory if there are any questions. Chloride 101 98 - 107 mmol/L [facility] Carbon Dioxide 25 22 - 31 mmol/L [facility] Anion Gap 13 5 - 15 mmol/L [facility] Calcium 9.5 8.5 - 10.5 mg/dL [facility] Est Glomerular Filtration Rate >60 >=60 [facility] Comment: The reported eGFR should be multiplied by 1.2 for patients. The MDRD is not an appropriate measure of renal function for patients with body mass extremes or in patients with acute kidney failure. http://Bozuko/DHnkdep [email or web address]://Bozuko/DHMCnkf Blood specimen (specimen) 01/15/2017 8:55 AM EST 01/15/2017 9:38 AM EST Narrative Resulting Agency Comment Spec In Lab Ray Cintron MD CHEMISTRY ORDERABL ES Performing Organization Address [facility] de Phone Number [facility] [place] [address] * (ABNORMAL) Carbamazepine level, total (01/15/2017 8:55 AM EST) Carbamazepine 6.7(L) 8.0 - 12.0 mg/L [facility] Comment: Therapeutic range: ??8-12 mg/L Toxic: ??> 12 mg/L Blood specimen (specimen) 01/15/2017 8:55 AM EST 01/15/2017 9:38 AM EST Narrative Resulting Agency Comment Spec In Lab Ray Cintron MD CHEMISTRY ORDERABL ES Performing Organization Address [facility] Co de Phone Number [facility] [place] [address] * CT Neck Soft Tissue w Contrast (Generic) (01/15/2017 3:01 AM EST) Anatomical Region Laterality Modality Neck, Head Computed Tomogra phy Impressions 01/15/2017 3:44 AM EST No focal fluid collection or inflammatory changes along the visualized extracranial course of the right PRODUCT ASS[employer]ANCE ENGINEER shunt catheter. 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 Evaluate for evidence of soft tissue infection in neck from catheter. Unable to get MR d/t metal valve TECHNIQUE: CT of the soft tissues of the neck performed with intravenous contrast. 110 cc of Omnipaque 350 was used COMPARISON: Correlation made with prior CTs of the head, most recent from January 07, 2017; and radiographs of the neck, most recent from January 14, 2017 FINDINGS: The tip of the intracranial segment of the right frontal approach [employer]ODUCT ASS[employer]ANCE ENGINEER shunt catheter is partially visualized, terminating within the right foramen of [place]ro. No ventriculomegaly. The extracranial component of the PRODUCT ASS[employer]ANCE [employer]INEER shunt catheter is visualized from the lateral aspect of the right parietal skull coursing inferiorly to the level of the right temporal bone adjacent to the mastoid air cells, where there is a shunt reservoir. The rest of the catheter courses along the lateral aspect of the right neck just superior to the right sternocleidomastoid muscle and extends inferiorly over the mid aspect of the right chest wall just medial to the right pectoralis muscle. The superior segment of the known abandoned abandoned shunt catheter projects anterior to the sternum and extends over the left anterior chest wall. There is no fluid collection or notable inflammatory changes around the course of the visualized course of the shunt catheter. The soft tissues of the neck are normal. There is no cervical lymphadenopathy. The parotid and submandibular glands are normal. The nasal, oral and hypopharynx and upper airways are normal. There is normal cervical spine alignment. The visualized intracranial structures are normal. There is minimal dependent atelectasis at the lung apices. 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 Evaluate for evidence ofsoft tissue infection in neck from catheter. Unable to get MR d/t metal valve TECHNIQUE: CT of the soft tissues of the neck performed with intravenous contrast.110 cc of Omnipaque 350 was used COMPARISON: Correlation made with prior CTs of the head, most recent from December; and radiographs of the neck, most recent from January 14, 2017 FINDINGS: The tip of the intracranial segment of the right frontal approach VPshunt catheter is partially visualized, terminating within the right foramen ofMonro. No ventriculomegaly. The extracranial component of the PRODUCT ASSURANCE ENGINEER shunt catheter is visualized fromthe lateral aspect of the right parietal skull coursing inferiorly to thelevel of the right temporal bone adjacent to the mastoid air cells, where there hema shunt reservoir. The rest of the catheter courses along the lateral aspectof the right neck just superior to the right sternocleidomastoid muscle andextends inferiorly over the mid aspect of the right chest wall just medial to theright pectoralis muscle. The superior segment of the known abandoned abandonedshunt catheter projects anterior to the sternum and extends over the leftanterior chest wall. There is no fluid collection or notable inflammatory changesaround the course of the visualized course of the shunt catheter. The soft tissues of the neck are normal. There is no cervicallymphadenopathy. The parotid and submandibular glands are normal. The nasal, oral andhypopharynx and upper airways are normal. There is normal cervical spine alignment.The visualized intracranial structures are normal. There is minimaldependent atelectasis at the lung apices. IMPRESSION No focal fluid collection or inflammatory changes along the visualized extracranial course of the right PRODUCT ASSURANCE ENGINEER shunt catheter. Ray Cintron MD IMG CT ORDERABLES * EKG 12 Lead (01/15/2017 1:58 AM EST) Ventricular rate 72 BPM MUSE SYSTEM Atrial Rate 72 BPM MUSE SYSTEM P-R Interval 122 ms MUSE SYSTEM QRS Duration 76 ms MUSE SYSTEM Q-T Interval 382 ms MUSE SYSTEM QTC Calculated (Bezet) 418 ms MUSE SYSTEM Calculated P [place] 43 degrees MUSE SYSTEM Calculated R [place] 12 degrees MUSE SYSTEM Calculated T [place] 11 degrees MUSE SYSTEM INTERPRETATION Normal sinus rhythm Normal ECG No previous ECGs available Confirmed by MD Irais, Ever ([id number]) on 01/15/2017 12:26:26 PM MUSE SYSTEM 01/15/2017 1:58 AM EST 01/15/2017 12:26 PM EST Ray Cintron MD ECG ORDERABLES MUSE SYSTEM * XR Shunt Series (01/14/2017 8:12 PM EST) Anatomical Region Laterality Modality N/A Digital Radiogra phy Impressions 01/14/2017 9:07 PM EST [employer]ANCE ENGINEER shunt catheter without evidence of kink or discontinuity, unchanged compared to prior from 01/13/2017.. I have personally reviewed the image(s) and the residents interpretation and agree with the findings, Marie Queen at 01/14/2017 9:07 PM Narrative 01/14/2017 9:07 PM EST EXAMINATION: XR SHUNT SERIES CLINICAL HISTORY: concern for shunt malfunction TECHNIQUE: AP and lateral radiographs of the head, chest and abdomen for shunt series. COMPARISON: CT head earlier same day 01/14/2017; shunt series 01/13/2017. FINDINGS: Right sided approach ventriculoperitoneal shunt catheter is again seen. The catheter projects over the midline calvarium without evidence of kink or discontinuity. The distal tip of the catheter projects over the anterior right lower quadrant. A separate segment of a catheter projects over the mediastinum on the frontal chest radiograph. The lungs are clear with no focal area of consolidation. No pneumothorax or pleural effusion. The cardiomediastinal silhouette, tabby and pulmonary vasculature appear within normal limits. Nonobstructive bowel gas pattern with a paucity of gas seen throughout the small bowel. Unchanged appearance of surgical clips projecting in the right upper quadrant as well as the left lower quadrant. Procedure Note Marie Queen MD - 01/14/2017 EXAMINATION: XR SHUNT SERIES CLINICAL HISTORY: concern for shunt malfunction TECHNIQUE: AP and lateral radiographs of the head, chest and abdomen for shuntseries. COMPARISON: CT head earlier same day 01/14/2017; shunt series 01/13/2017. FINDINGS: Right sided approach ventriculoperitoneal shunt catheter is again seen.The catheter projects over the midline calvarium without evidence of kink or discontinuity. The distal tip of the catheter projects over the anteriorright lower quadrant. A separate segment of a catheter projects over the mediastinum on thefrontal chest radiograph. The lungs are clear with no focal area of consolidation. No pneumothoraxor pleural effusion. The cardiomediastinal silhouette, tabby and pulmonary vasculature appear within normal limits. Nonobstructive bowel gas pattern with a paucity of gas seen throughout thesmall bowel. Unchanged appearance of surgical clips projecting in the rightupper quadrant as well as the left lower quadrant. [employer] shunt catheter without evidence of kink or discontinuity, unchangedcompared to prior from 01/13/2017.. I have personally reviewed the image(s) and the residents interpretationand agree with the findings, Marie Queen at 01/14/2017 9:07 PM Ray Cintron MD IMG DX ORDERABLES * CT Head wo Contrast (Generic) (01/14/2017 7:52 PM EST) Anatomical Region Laterality Modality Head Computed Tomogra phy Impressions 01/14/2017 8:07 PM EST No acute intracranial hemorrhage. Unchanged ventricular caliber. Narrative 01/14/2017 8:07 PM EST EXAMINATION: CT HEAD WO CONTRAST (GENERIC) CLINICAL HISTORY: ALICEA, concern for shunt malfunction TECHNIQUE: CT acquired of the head without contrast. COMPARISON: CT head 11/08/2004 FINDINGS: No acute intracranial hemorrhage. No evidence of interval mass or mass effect. Unchanged position of the shunt. Unchanged ventricular caliber. Extra-axial spaces are normal. Mild scattered sinus mucosal disease. Procedure Note Sarah Sinha MD - 01/14/2017 EXAMINATION: CT HEAD WO CONTRAST (GENERIC) CLINICAL HISTORY: ALICEA, concern for shunt malfunction TECHNIQUE: CT acquired of the head without contrast. COMPARISON: CT head 11/08/2004 FINDINGS: No acute intracranial hemorrhage. No evidence of interval mass or masseffect. Unchanged position of the shunt. Unchanged ventricular caliber.Extra-axial spaces are normal. Mild scattered sinus mucosal disease. IMPRESSION No acute intracranial hemorrhage. Unchanged ventricular caliber. 8:07 PM Ray Cintron MD IMG CT ORDERABLES * Gold Tube HOLD (01/14/2017 6:55 PM EST) Gold Hold Sample in lab. [facility] Blood specimen (specimen) Venous Draw / Unknown 01/14/2017 6:55 PM EST 01/14/2017 7:09 PM EST Abelardo Atkins DO CHEMISTRY ORDERABLES Performing Organization Address City/[facility]/ZIP Co de Phone Number [facility] [place] [address] * Blue Tube HOLD (01/14/2017 6:55 PM EST) [facility] Blue Hold Sample in lab. [facility] Blood specimen (specimen) Venous Draw / Unknown 01/14/2017 6:55 PM EST 01/14/2017 7:08 PM EST Abelardo Atkins DO HEMATOLOGY ORDERABLE S Performing Organization Address City/[facility]/ZIP Co de Phone Number [facility] [place] [address] * (ABNORMAL) Differential, Automated (01/14/2017 6:55 PM EST) Neutrophil % 71.7 % [facility] Neutrophil Absolute 7.76(H) 1.70 - 6.10 x10(3)/mc L [facility] Lymph % 20.4 % [facility] Lymphocytes Abs 2.2 0.9 - 3.2 x10(3)/mc L [facility] Monocyte % 5.3 % [facility] Monocyte Abs 0.6 0.3 - 0.9 x10(3)/mc L [facility] Eos % 1.6 % [facility] Eosinophils Abs 0.2 0.0 - 0.4 x10(3)/mc L [facility] Basophil % 0.8 % [facility] Baso Absolute 0.1 0.0 - 0.1 x10(3)/mc L [facility] Immature Gran % 0.20 % [facility] Comment: Immature granulocytes(IG's)percentage and absolute count will include metamyelocytes, myelocytes, and promyelocytes. Blood smears from CBCs yielding IG's will be scanned manually for concordance. If this scan disagrees with the automated IG or if promyelocytes are noted, a manual differential will be performed. Immature Gran Absolute 0.02 0.00 - 0.04 x10(3)/mc L [facility] Blood specimen (specimen) 01/14/2017 6:55 PM EST 01/14/2017 7:07 PM EST Narrative Resulting Agency Comment Spec In Lab Abelardo Atkins DO HEMATOLOGY ORDERABLE S Performing Organization Address City/State/[facility] Co de Phone Number [facility] [place] [address] * (ABNORMAL) Hemogram (01/14/2017 6:55 PM EST) White Blood Cell 10.8(H) 4.0 - 9.5 x10(3)/mc L [facility] Red Blood Cell 5.58(H) 4.58 - 5.54 x10(6)/mc L [facility] Hemoglobin 17.9(H) 13.7 - 16.5 gm/dL [facility] Hematocrit 50.8(H) 40.5 - 48.5 % [facility] Mean Cell Volume 91.0 82.9 - 93.[address] [facility] Mean Cell Hemoglobin 32.1 27.5 - 32.[address] [facility] Mean Cell Hemoglobin Concentration 35.2 32.0 - 35.7 gm/dL [facility] Platelet 337 145 - 357 x10(3)/mc L [facility] RDW Standard Deviation 39.2 36.0 - 45.[address] [facility] RDW coefficient of variation 11.7 11.4 - 13.8 % [facility] Mean Platelet Volume 9.2 7.6 - 12.[address] [facility] NRBC% auto 0.0 % [facility] NRBC Absolute 0.000 0.000 - 0.000 x10(3)/mc L [facility] Blood specimen (specimen) 01/14/2017 6:55 PM EST 01/14/2017 7:07 PM EST Narrative Resulting Agency Comment Spec In Lab Abelardo Atkins DO HEMATOLOGY ORDERABLE S Performing Organization Address [facility] Co de Phone Number [facility] [place] [address] * Hepatic Function Panel (01/14/2017 6:55 PM EST) Protein, Total 8.0 6.1 - 8.0 gm/dL [facility] Albumin 4.3 3.2 - 5.2 gm/dL [facility] Aspartate Aminotransferase 11 0 - 39 unit/L [facility] Alanine Aminotransferase 11 0 - 55 unit/L [facility] Alkaline Phosphatase 96 40 - 120 unit/L [facility] Bilirubin, Total 0.3 0.2 - 1.3 mg/dL [facility] Bilirubin, Direct 0.1 0.0 - 0.3 mg/dL [facility] Blood specimen (specimen) 01/14/2017 6:55 PM EST 01/14/2017 7:07 PM EST Narrative Resulting Agency Comment Spec In Lab Abelardo Atkins DO CHEMISTRY ORDERABLES Performing Organization Address [facility] Co de Phone Number [facility] [place] [address] * Basic Metabolic Panel (non-fasting) (01/14/2017 6:55 PM EST) Glucose 91 65 - 199 mg/dL [facility] Comment:Diabetes: >=200 mg/d L plus symptoms Blood Urea Nitrogen 12 10 - 20 mg/dL [facility] Creatinine 1.04 0.80 - 1.50 mg/dL [facility] Sodium 140 135 - 145 mmol/L [facility] Potassium 4.1 3.5 - 5.0 mmol/L [facility] Comment: Please note: ??Patients with WBC >100,000 may have falsely elevated Potassium levels. ??For accurate Potassium quantification in these patients send serum separator tube (gold top) for subsequent determinations. ??Contact the Clinical Chemistry Laboratory if there are any questions. Chloride 99 98 - 107 mmol/L [facility] Carbon Dioxide 26 22 - 31 mmol/L [facility] Anion Gap 15 5 - 15 mmol/L [facility] Calcium 9.3 8.5 - 10.5 mg/dL [facility] Est Glomerular Filtration Rate >60 >=60 [facility] Comment: The reported eGFR should be multiplied by 1.2 for patients. The MDRD is not an appropriate measure of renal function for patients with body mass extremes or in patients with acute kidney failure. [email or web address].Wefunder/DHnkdep [email or web address]://Bozuko/DHMCnkf Blood specimen (specimen) 01/14/2017 6:55 PM EST 01/14/2017 7:07 PM EST Narrative Resulting Agency Comment Spec In Lab Abelardo Atkins DO CHEMISTRY ORDERABLES Performing Organization Address City/State/[facility] Co de Phone Number [facility] [place] [address] documented in this encounter Visit Diagnoses Diagnosis Persistent headaches Headache Headache documented in this encounter Admitting Diagnoses Diagnosis Headache documented in this encounter Administered Medications Inactive Administered Medications - up to 3 most recent administrations Medication Order MAR Action Action Date Dose Rate Site acetaminophen (TYLENOL) tablet 650 mg 650 mg, Oral, EVERY 6 HOURS PRN, Starting on Sandra 01/15/17 at 0137, Until 01/19/17 at 1850, Pain, Fever, Administer for temperature greater than or equal to 38.2 degrees celsius. Maximum daily dose of acetaminophen from all sources not to exceed 4,000 mg., Routine Given 01/17/2017 12:09 PM EST 650 mg Given 01/16/2017 9:13 PM EST 650 mg Given 01/16/2017 12:01 PM EST 650 mg amitriptyline (ELAVIL) tablet 100 mg 100 mg, Oral, NIGHTLY, First dose on Sandra 01/15/17 at 0200, Until Discontinued, Routine Given 01/18/2017 9:3 7 PM EST 100 mg Given 01/17/2017 8:02 PM EST 100 mg Given 01/16/2017 10:47 PM EST 100 mg caffeine (VIVARIN) tablet 100 mg 100 mg, Oral, ONCE, On 01/17/17 at 1400, 1 dose Given 01/17/2017 3:00 PM EST 100 mg carBAMazepine (TEGretol XR) SR tablet 600 mg 600 mg, Oral, EVERY MORNING, First dose on Sandra 01/15/17 at 0700, Until Discontinued, DO NOT CRUSH OR OPEN, Routine Given 01/19/2017 6:58 AM EST 600 mg Given 01/18/2017 6:31 AM EST 600 mg Given 01/17/2017 6:39 AM EST 600 mg carBAMazepine (TEGretol) tablet 400 mg 400 mg, Oral, EVERY EVENING, First dose on Sandra 01/15/17 at 0200, Until Discontinued, Routine Given 01/18/2017 8:06 PM EST 400 mg Given 01/17/2017 8:02 PM EST 400 mg Given 01/16/2017 10:47 PM EST 400 mg cyclobenzaprine (FLEXERIL) tablet 5 mg 5 mg, Oral, EVERY 8 HOURS PRN, Starting on Thu01/19/17 at 1007, Until Thu01/19/17 at 1850, Muscle spasms, Routine Given 01/19/2017 4:27 PM EST 5 mg dihydroergotamine (DHE) injection 0.5 mg 0.5 mg, Intravenous, EVERY 8 HOURS, 21 doses, First dose on 01/17/17 at 1345, Last dose on 01/24/17 at 0545, Do not exceed 3 mg in 24 hours. Administer during waking hours only., Routine Given 01/18/2017 6:03 AM EST 0.5 mg Given 01/17/2017 9:20 PM EST 0.5 mg Given 01/17/2017 1:51 PM EST 0.5 mg dihydroergotamine (DHE) injection 1 mg 1 mg, Intravenous, EVERY 8 HOURS, 18 doses, First dose (after last modification) on 01/18/17 at 1345, Last dose on 01/24/17 at 0545, Do not exceed 3 mg in 24 hours. Administer during waking hours only., Routine Given 01/19/2017 1:28 PM EST 1 mg Given 01/19/2017 5:34 AM EST 1 mg Given 01/18/2017 9:37 PM EST 1 mg diphenhydrAMINE (BENADRYL) capsule 25 mg 25 mg, Oral, EVERY 8 HOURS, 21 doses, First dose on 01/17/17 at 1230, Last dose on 01/24/17 at 0430, To be followed in one hour by metoclopramide. To be administered during waking hours only., Routine Given 01/18/2017 4:49 AM EST 25 mg Given 01/17/2017 8:02 PM EST 25 mg Given 01/17/2017 12:30 PM EST 25 mg diphenhydrAMINE (BENADRYL) capsule 25 mg 25 mg, Oral, EVERY 8 HOURS, 18 doses, First dose (after last modification) on 01/18/17 at 1230, Last dose on 01/24/17 at 0430, To be followed in one hour by metoclopramide. To be administered during waking hours only., Routine Given 01/19/2017 12:15 PM EST 25 mg Given 01/19/2017 4:33 AM EST 25 mg Given 01/18/2017 8:06 PM EST 25 mg enoxaparin (LOVENOX) injection 40 mg 40 mg, Subcutaneous, NIGHTLY, First dose on Sandra 01/15/17 at 2100, Until Discontinued, Routine Given 01/18/2017 9:37 PM EST 40 mg Given 01/17/2017 8:02 PM EST 40 mg Given 01/16/2017 10:47 PM EST 40 mg gadobutrol (GADAVIST) 1 mMol/mL injection 8 mL 8 mL, Intravenous, ONCE PRN, 1 dose, Starting on 01/19/17 at 1137, Until 01/19/17 at 1050, Per Protocol, Routine Given 01/19/2017 10:50 AM EST 8 m Ls gemfibrozil (LOPID) tablet 600 mg 600 mg, Oral, 2 TIMES DAILY BEFORE MEALS, First dose on Thu01/15/17 at 0730, Until Discontinued, Routine Given 01/19/2017 6:57 AM EST 600 mg Given 01/18/2017 4:51 PM EST 600 mg Given 01/18/2017 6:30 AM EST 600 mg hydrOXYzine (ATARAX) tablet 25 mg 25 mg, Oral, 3 TIMES DAILY PRN, Starting on Thu01/16/17 at 1128, Until Thu01/19/17 at 1850, Itching, for headache - can be given at same time as scheduled toradol, Routine iohexol (OMNIPAQUE) 350 mg/mL solution 0-200 mL 0-200 mL, Intravenous, ONCE PRN, 1 dose, Starting on Thu01/15/17 at 0255, Until Thu01/15/17 at 0255, Per Protocol, Warning Vesicant/Irritant Medication , Radiology Contrast, Routine Given 01/15/2017 2:55 AM EST 110 mLs iohexol (OMNIPAQUE) 350 mg/mL solution 0-200 mL 0-200 mL, Intravenous, ONCE PRN, 1 dose, Starting on Thu01/16/17 at 2009, Until Thu01/16/17 at 2009, Per Protocol, Warning Vesicant/Irritant Medication , Radiology Contrast, Routine Given 01/16/2017 8:09 PM EST 65 mLs iohexol (OMNIPAQUE) 350 mg/mL solution 0-200 mL 0-200 mL, Intravenous, ONCE PRN, 1 dose, Starting on Thu01/18/17 at 1926, Until Thu01/19/17 at 1850, Per Protocol, Warning Vesicant/Irritant Medication , Radiology Contrast, Routine ketorolac (TORADOL) injection 30 mg 30 mg, Intravenous, EVERY 6 HOURS PRN, Starting on Thu01/15/17 at 0137, Until Thu01/16/17 at 1119, Pain, Routine Given 01/15/2017 9:08 AM EST 30 mg Given 01/15/2017 2:13 AM EST 30 mg ketorolac (TORADOL) injection 30 mg 30 mg, Intravenous, EVERY 6 HOURS SCHEDULED, 8 doses, First dose (after last modification) on Thu01/16/17 at 1200, Last dose on Thu01/18/17 at 0600, Routine Given 01/18/2017 6:03 AM EST 30 mg Given 01/18/2017 12:10 AM EST 30 mg Given 01/17/2017 5:58 PM EST 30 mg ketorolac (TORADOL) injection 30 mg 30 mg, Intravenous, EVERY 6 HOURS PRN, Starting on Thu01/18/17 at 2041, Until Thu01/19/17 at 1850, Pain, Routine Given 01/19/2017 8:24 AM EST 30 mg levothyroxine (SYNTHROID) tablet 50 mcg 50 mcg, Oral, EVERY MORNING, First dose on Sandra 01/15/17 at 0600, Until Discontinued, Routine Given 01/19/2017 5:34 AM EST 50 mcg Given 01/18/2017 6:03 AM EST 50 mcg Given 01/17/2017 6:39 AM EST 50 mcg LORazepam (ATIVAN) injection 0.76 mg 0.76 mg (rounded from 0.75 mg), Intravenous, ONCE PRN, 1 dose, Starting on Thu01/16/17 at 1314, Until Thu01/16/17 at 1403, Anxiety, Please administer prior to patient's LUMBAR PUNCTURE, Routine Given 01/16/2017 2:03 PM EST 0.76 mg magnesium sulfate 1g in dextrose 5% 100mL 1 g, Intravenous, ONCE, 1 dose, On Sandra 01/15/17 at 0345, Administer over 10 Minutes New Bag 01/15/2017 3:24 AM EST 1 g 600 mL/hr magnesium sulfate 1g in dextrose 5% 100mL 1 g, Intravenous, ONCE, 1 dose, On Sandra 01/15/17 at 0845, Administer over 10 Minutes New Bag 01/15/2017 8:25 AM EST 1 g 600 mL/hr magnesium sulfate 2 g in sterile water 50 mL 2 g, Intravenous, ONCE, 1 dose, On [place] 01/18/17 at 1200, Administer over 120 Minutes New Bag 01/18/2017 2:56 PM EST 2 g 25 mL/hr metoclopramide (REGLAN) injection 10 mg 10 mg, Intravenous, EVERY 8 HOURS, 21 doses, First dose on 01/17/17 at 1330, Last dose on 01/24/17 at 0530, To be followed in 15 minutes by dihydroergotamine. To be administered during waking hours only., Routine Given 01/18/2017 5:47 AM EST 10 mg Given 01/17/2017 9:00 PM EST 10 mg Given 01/17/2017 1:38 PM EST 10 mg metoclopramide (REGLAN) injection 10 mg 10 mg, Intravenous, EVERY 8 HOURS, 18 doses, First dose (after last modification) on 01/18/17 at 1330, Last dose on 01/24/17 at 0530, To be followed in 15 minutes by dihydroergotamine. To be administered during waking hours only., Routine Given 01/19/2017 1:18 PM EST 10 mg Given 01/19/2017 5:34 AM EST 10 mg Given 01/18/2017 9:37 PM EST 10 mg ondansetron (ZOFRAN) injection 4 mg 4 mg, Intravenous, EVERY 8 HOURS PRN, Starting on Sandra 01/15/17 at 0137, Until 01/19/17 at 1850, Nausea, May repeat times one in 30 minutes if ineffective. If multiple antiemetics are ordered, give ondansetron first. ondansetron (ZOFRAN) tablet 4 mg 4 mg, Oral, EVERY 8 HOURS PRN, Starting on Sandra 01/15/17 at 0137, Until 01/19/17 at 1850, Nausea, Vomiting, If multiple antiemetics are ordered, use ondansetron first. PO Preferred. If patient unable to take PO, may give IV if ordered. May repeat times one in 45 minutes if ineffective. If unable to take PO, may give IV., Routine potassium phosphate 10 mMol in sodium chloride 0.9% 100 mL 10 mmol, Intravenous, EVERY 4 HOURS, 2 doses, First dose on Sandra 01/15/17 at 1600, Last dose on Sandra 01/15/17 at 2000, Administer over 4 Hours, Administer over 4-6 hours New Bag 01/15/2017 8:13 PM EST 10 mmol New Bag 01/15/2017 3:33 PM EST 10 mmol sodium chloride 0.9 % flush 5 mL 5 mL, Intravenous, 2 TIMES DAILY, First dose on Sandra 01/15/17 at 0200, Until Discontinued, Routine Given 01/17/2017 8:07 PM EST 5 mLs Given 01/17/2017 6:39 AM EST 5 mLs Given 01/16/2017 10:47 PM EST 5 mLs sodium chloride 0.9% 500 mL IV bolus Intravenous, ONCE, 1 dose, On 01/17/17 at 1315 New Bag 01/17/2017 2:14 PM EST sodium chloride 0.9% infusion 1,000 mL, at 100 mL/hr, Intravenous, CONTINUOUS, Starting on Sandra 01/15/17 at 0200, Until 01/19/17 at 1850 Rate/Dose Verify 01/19/2017 7:00 AM EST 1,000 mLs 100 mL/hr New Bag 01/19/2017 2:01 AM EST 1,000 mLs 100 mL/hr New Bag 01/18/2017 8:59 AM EST 1,000 mLs 100 mL/hr documented in this encounter Active and Recently Administered Medications Times are shown in EST. Scheduled Medication Order 01/17/2017 01/18/2017 01/19/2017 amitriptyline (ELAVIL) tablet 100 mg 100 mg, Oral, NIGHTLY, First dose on Sandra 01/15/17 at 0200, Until Discontinued, Routine 2001 (Given - Provider: Branden Szymanski RN) 2136 (Given - Provider: Jenna Warner, EDWARD) caffeine (VIVARIN) tablet 100 mg (COMPLETED) 100 mg, Oral, ONCE, On 01/17/17 at 1400, 1 dose 1500 (Given - Provider: Stefani Glass RN) carBAMazepine (TEGretol XR) SR tablet 600 mg 600 mg, Oral, EVERY MORNING, First dose on Sandra 01/15/17 at 0700, Until Discontinued, DO NOT CRUSH OR OPEN, Routine 0639 (Given - Provider: Pallavi Lainez RN) 06 (Given - Provider: Branden Szymanski RN) 0658 (Given - Provider: Jenna Warner, EDWARD) carBAMazepine (TEGretol) tablet 400 mg 400 mg, Oral, EVERY EVENING, First dose on Sandra 01/15/17 at 0200, Until Discontinued, Routine 2001 (Given - Provider: Branden Szymanski RN) 2005 (Given - Provider: Jenna Warner, EDWARD) dihydroergotamine (DHE) injection 0.5 mg (CANCELED) 0.5 mg, Intravenous, EVERY 8 HOURS, 21 doses, First dose on 01/17/17 at 1345, Last dose on 01/24/17 at 0545, Do not exceed 3 mg in 24 hours. Administer during waking hours only., Routine 1351 (Given - Provider: Melany Mcknight RN)2120 (Given - Provider: Branden Szymanski RN) 0603 (Given - Provider: Branden Szymanski RN) dihydroergotamine (DHE) injection 1 mg(Linked Group 1) 1 mg, Intravenous, EVERY 8 HOURS, 18 doses, First dose (after last modification) on 01/18/17 at 1345, Last dose on 01/24/17 at 0545, Do not exceed 3 mg in 24 hours. Administer during waking hours only., Routine 1401 (Given - Provider: Melany Mcknight RN)2137 (Given - Provider: Jenna Warner RN) 0534 (Given - Provider: Jenna Warner RN)1328 (Given - Provider: Nighat Vuong RN) diphenhydrAMINE (BENADRYL) capsule 25 mg (CANCELED) 25 mg, Oral, EVERY 8 HOURS, 21 doses, First dose on 01/17/17 at 1230, Last dose on 01/24/17 at 0430, To be followed in one hour by metoclopramide. To be administered during waking hours only., Routine 1230 (Given - Provider: Melany Mcknight RN)2001 (Given - Provider: Branden Szymanski RN) 044 (Given - Provider: Branden Szymanski RN) diphenhydrAMINE (BENADRYL) capsule 25 mg(Linked Group 1) 25 mg, Oral, EVERY 8 HOURS, 18 doses, First dose (after last modification) on 01/18/17 at 1230, Last dose on 01/24/17 at 0430, To be followed in one hour by metoclopramide. To be administered during waking hours only., Routine 1241 (Given - Provider: Melany Mcknight RN)2005 (Given - Provider: Jenna Warner, EDWARD) 043 (Given - Provider: Jenna Warner RN)1215 (Given - Provider: Nighat Vuong RN) enoxaparin (LOVENOX) injection 40 mg 40 mg, Subcutaneous, NIGHTLY, First dose on Thu01/15/17 at 2100, Until Discontinued, Routine 2001 (Given - Provider: Branden Szymanski RN) 2137 (Given - Provider: Jenna Warner, EDWARD) gemfibrozil (LOPID) tablet 600 mg 600 mg, Oral, 2 TIMES DAILY BEFORE MEALS, First dose on Thu01/15/17 at 0730, Until Discontinued, Routine 0639 (Given - Provider: Pallavi Lainez RN)1632 (Given - Provider: Melany Mcknight, EDWARD) 0630 (Given - Provider: Branden Szymanski, EDWARD)1651 (Given - Provider: Melany Mcknight RN) 0657 (Given - Provider: Jenna Warner, EDWARD)1630 (Not Given - Provider: Nighat Vuong RN - Reason: Patient/family refused - Comment: will take when he gets home) ketorolac (TORADOL) injection 30 mg (COMPLETED) 30 mg, Intravenous, EVERY 6 HOURS SCHEDULED, 8 doses, First dose (after last modification) on Thu01/16/17 at 1200, Last dose on Thu01/18/17 at 0600, Routine 0012 (Given - Provider: Pallavi Lainez RN)0639 (Given - Provider: Pallavi Lainez RN)1136 (Given - Provider: Melany Mcknight, EDWARD)1758 (Given - Provider: Melany Mcknight, EDWARD) 0010 (Given - Provider: Branden Szymanski RN)0603 (Given - Provider: Branden Szymanski RN) levothyroxine (SYNTHROID) tablet 50 mcg 50 mcg, Oral, EVERY MORNING, First dose on Thu01/15/17 at 0600, Until Discontinued, Routine 0639 (Given - Provider: Pallavi Lainez RN) 0603 (Given - Provider: Branden Szymanski RN) 0534 (Given - Provider: Jenna Warner, EDWARD) magnesium sulfate 2 g in sterile water 50 mL (COMPLETED) 2 g, Intravenous, ONCE, 1 dose, On Thu01/18/17 at 1200, Administer over 120 Minutes 1456 (New Bag - Provider: Melany Mcknight RN - Comment: Sent late by pharmacy)1656 (Stopped - Provider: Melany Mcknight RN) metoclopramide (REGLAN) injection 10 mg (CANCELED) 10 mg, Intravenous, EVERY 8 HOURS, 21 doses, First dose on 01/17/17 at 1330, Last dose on 01/24/17 at 0530, To be followed in 15 minutes by dihydroergotamine. To be administered during waking hours only., Routine 1338 (Given - Provider: Melany Mcknight RN)2100 (Given - Provider: Branden Szymanski RN) 0547 (Given - Provider: Branden Szymanski RN) metoclopramide (REGLAN) injection 10 mg(Linked Group 1) 10 mg, Intravenous, EVERY 8 HOURS, 18 doses, First dose (after last modification) on 01/18/17 at 1330, Last dose on 01/24/17 at 0530, To be followed in 15 minutes by dihydroergotamine. To be administered during waking hours only., Routine 1348 (Given - Provider: Melany Mcknight RN)2137 (Given - Provider: Jenna Warner, EDWARD) 0534 (Given - Provider: Jenna Warner, EDWARD)1318 (Given - Provider: Nighat Vuong RN) sodium chloride 0.9 % flush 5 mL 5 mL, Intravenous, 2 TIMES DAILY, First dose on Sandra 01/15/17 at 0200, Until Discontinued, Routine 0639 (Given - Provider: Pallavi Lainez RN)2006 (Given - Provider: Branden Szymanski RN) 0900 (Not Given - Provider: Melany Mcknight RN - Reason: See comment - Comment: IV infusing)2100 (Not Given - Provider: Jenna Warner RN - Reason: See comment - Comment: infusing) 0900 (Not Given - Provider: Nighat Vuong RN - Reason: See comment - Comment: MIVF running) sodium chloride 0.9% 500 mL IV bolus (COMPLETED) Intravenous, ONCE, 1 dose, On 01/17/17 at 1315 1414 (New Bag - Provider: Melany Mcknight RN) Continuous Medication Order 01/17/2017 01/18/2017 01/19/2017 sodium chloride 0.9% infusion 1,000 mL, at 100 mL/hr, Intravenous, CONTINUOUS, Starting on Sandra 01/15/17 at 0200, Until Thu01/19/17 at 1850 0643 (New Bag - Provider: Pallavi Lainez RN)2303 (New Bag - Provider: Branden Szymanski RN) 0859 (New Bag - Provider: Melany Mcknight RN) 0201 (New Bag - Provider: Jenna Warner, EDWARD)0700 (Rate/Dose Verify - Provider: Jenna Warner, EDWARD) PRN Medication Order 01/17/2017 01/18/2017 01/19/2017 acetaminophen (TYLENOL) tablet 650 mg 650 mg, Oral, EVERY 6 HOURS PRN, Starting on Sandra 01/15/17 at 0137, Until Thu01/19/17 at 1850, Pain, Fever, Administer for temperature greater than or equal to 38.2 degrees celsius. Maximum daily dose of acetaminophen from all sources not to exceed 4,000 mg., Routine 1209 (Given - Provider: Melany Mcknight RN) cyclobenzaprine (FLEXERIL) tablet 5 mg 5 mg, Oral, EVERY 8 HOURS PRN, Starting on Thu01/19/17 at 1007, Until Thu01/19/17 at 1850, Muscle spasms, Routine 1627 (Given - Provid er: Nighat Vuong RN) gadobutrol (GADAVIST) 1 mMol/mL injection 8 mL (COMPLETED) 8 mL, Intravenous, ONCE PRN, 1 dose, Starting on Thu01/19/17 at 1137, Until Thu01/19/17 at 1050, Per Protocol, Routine 1050 (Given - Provid er: Joselin Hamlin) hydrOXYzine (ATARAX) tablet 25 mg 25 mg, Oral, 3 TIMES DAILY PRN, Starting on Thu01/16/17 at 1128, Until Thu01/19/17 at 1850, Itching, for headache - can be given at same time as scheduled toradol, Routine iohexol (OMNIPAQUE) 350 mg/mL solution 0-200 mL 0-200 mL, Intravenous, ONCE PRN, 1 dose, Starting on Thu01/18/17 at 1926, Until Thu01/19/17 at 1850, Per Protocol, Warning Vesicant/Irritant Medication , Radiology Contrast, Routine ketorolac (TORADOL) injection 30 mg 30 mg, Intravenous, EVERY 6 HOURS PRN, Starting on 01/18/17 at 2041, Until Thu01/19/17 at 1850, Pain, Routine 0824 (Given - Provid er: Nighat Vuong RN) lidocaine (XYLOCAINE) 10 mg/mL (1 %) injection 3 mg 3 mg (0.3 mL), Subcutaneous, ONCE PRN, 1 dose, Starting on Sandra 01/15/17 at 0137, Until Thu01/19/17 at 1850, for discomfort with PIV insertion, Routine ondansetron (ZOFRAN) injection 4 mg(Linked Group 2) 4 mg, Intravenous, EVERY 8 HOURS PRN, Starting on Sandra 01/15/17 at 0137, Until Thu01/19/17 at 1850, Nausea, May repeat times one in 30 minutes if ineffective. If multiple antiemetics are ordered, give ondansetron first. ondansetron (ZOFRAN) tablet 4 mg(Linked Group 2) 4 mg, Oral, EVERY 8 HOURS PRN, Starting on Sandra 01/15/17 at 0137, Until Thu01/19/17 at 1850, Nausea, Vomiting, If multiple antiemetics are ordered, use ondansetron first. PO Preferred. If patient unable to take PO, may give IV if ordered. May repeat times one in 45 minutes if ineffective. If unable to take PO, may give IV., Routine senna-docusate (PERICOLACE) 8.6-50 mg per tablet 2 tablet 2 tablet, Oral, 2 TIMES DAILY PRN, Starting on Sandra 01/15/17 at 0137, Until Thu01/19/17 at 1850, Constipation, Routine sodium chloride 0.9 % flush 5-20 mL 5-20 mL, Intravenous, EVERY 1 MIN PRN, Starting on Sandra 01/15/17 at 0137, Until Thu01/19/17 at 1850, flush, Flush pertains to all indwelling lines. Flush per protocol found in the job aid using the link provided on this medication record., Routine Linked Groups Order Group 1: diphenhydrAMINE (BENADRYL) capsule 25 mgJump to med 25 mg, Oral, EVERY 8 HOURS, 18 doses, First dose (after last modification) on 01/18/17 at 1230, Last dose on 01/24/17 at 0430, To be followed in one hour by metoclopramide. To be administered during waking hours only., Routine And metoclopramide (REGLAN) injection 10 mgJump to med 10 mg, Intravenous, EVERY 8 HOURS, 18 doses, First dose (after last modification) on 01/18/17 at 1330, Last dose on 01/24/17 at 0530, To be followed in 15 minutes by dihydroergotamine. To be administered during waking hours only., Routine And dihydroergotamine (DHE) injection 1 mgJump to med 1 mg, Intravenous, EVERY 8 HOURS, 18 doses, First dose (after last modification) on 01/18/17 at 1345, Last dose on 01/24/17 at 0545, Do not exceed 3 mg in 24 hours. Administer during waking hours only., Routine Group 2: ondansetron (ZOFRAN) tablet 4 mgJump to med 4 mg, Oral, EVERY 8 HOURS PRN, Starting on Sandra 01/15/17 at 0137, Until 01/19/17 at 1850, Nausea, Vomiting, If multiple antiemetics are ordered, use ondansetron first. PO Preferred. If patient unable to take PO, may give IV if ordered. May repeat times one in 45 minutes if ineffective. If unable to take PO, may give IV., Routine Or ondansetron (ZOFRAN) injection 4 mgJump to med 4 mg, Intravenous, EVERY 8 HOURS PRN, Starting on Sandra 01/15/17 at 0137, Until 01/19/17 at 1850, Nausea, May repeat times one in 30 minutes if ineffective. If multiple antiemetics are ordered, give ondansetron first. documented in this encounter Care Teams Engineer Exhauster Relationship Specialty Start Date End Date Cl Beltran MD PCP - General 01/15/10 02/02/18 documented as of this encounter
--- OUTSIDE RECORDS SUMMARY | 2024-02-29 15:51 | XMS_ITS | Encounter Summary ---
[place] [address] Care Team Providers Care Experimental Physicist Name Role Phone Rosario Varela APRN Primary Care Provider [phone] Encounter Details Date Type Department Care Team (Late st Contact Info) Description 04/05/2018 Orders [place] [address] Enriqueta Cannon Social History Tobacco Use Types [...] on filedocumented in this encounter Care Teams Experimental Physicist Relationship Specialty Start Date End Date Rosario Varela APRN [address] [place] [address] PCP - General Family Medicine 02/03/18 09/19/20 documented as of this encounter
--- OUTSIDE RECORDS SUMMARY | 2024-02-29 15:51 | XMS_ITS | Encounter Summary ---
Author Organization [facility] [place] [address] Care Team Providers Care Garment Alteration Examiner Name Role Phone Cl Beltran MD Primary Care Provider [phone] Encounter Details Date Type Department Care Team (Late st Contact Info) Description 11/10/2017 [place] [address] Catherine Hicks MD Social History Tobacco Use Types Packs/Day [...] encounter Miscellaneous Notes * Telephone Encounter - Catherine Hicks MD - 11/10/2017 5:28 PM EDT 11/10/17 Called by an OSH provider regarding Mr. 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 He presented to the OSH with headaches and right-sided abdominal pain. Per report he is neurolog ically at his baseline. CT head and shunt series were acquired and were stable. We were called for recommendations. The patient has a history of chronic headaches and has been managed by neurology inthe past. I recommended abdominal imaging (ultrasound versus CAT scan) to rule out an acute abdominal process associated with shunt. If negative neurology may be engaged to treat the patient's headaches. The OSH provider agree with the plan will call back with any questions or concerns. Catherine Hicks MD [id number] documented in this encounter Plan of Treatment Not on file documented as of this encounter Visit Diagnoses Not on filedocumented in this encounter Care Teams Garment Alteration Examiner Relationship Specialty Start Date End Date Cl Beltran MD PCP - General 01/15/10 02/02/18 documented as of this encounter
--- OUTSIDE RECORDS SUMMARY | 2024-02-29 15:51 | XMS_ITS | Encounter Summary ---
Author Organization [facility] [place] [address] Care Team Providers Care Emergency Room Specialist Name Role Phone Rosario Varela APRN Primary Care Provider [phone] Encounter Details Date Type Department Care Team (Late st Contact Info) Description 08/20/2018 [place] [address] Lul Alvarez MD Social History Tobacco Use [...] encounter Miscellaneous Notes * Telephone Encounter - Lul Alvarez MD - 08/20/2018 7:33 AM EDT Images from the original note were not included. 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 Getting neck PT Headaches are persisting. Will arrange visit with headache clinic going forward Lul Alvarez MD Department of Neurology documented in this encounter Plan of Treatment Not on file documented as of this encounter Visit Diagnoses Not on filedocumented in this encounter Care Teams Emergency Room Specialist Relationship Specialty Start Date End Date Rosario Varela APRN [address] [place] [address] PCP - General Family Medicine 02/03/18 09/19/20 documented as of this encounter
--- OUTSIDE RECORDS SUMMARY | 2024-02-29 15:51 | XMS_ITS | Encounter Summary ---
[place] [address] Care Team Providers Care Lining Ironer Name Role Phone Rosario Varela APRN Primary Care Provider [phone] Encounter Details Date Type Department Care Team (Late st Contact Info) Description 07/29/2018 [place] [address] Madina Abdalla Social History Tobacco Use Types [...] * Telephone Encounter - Madina Abdalla - 07/29/2018 2:30 PM EDT LM for patient to call to provide appt details. * Telephone Encounter - Madina Abdalla - 07/29/2018 1:43 PM EDT Caller: Patient Best time to reach caller: anytime Best number to reach caller: [phone] Reason for call: Patient is scheduled for a MRI on 08/16/18 and will need to have his shunt reprogrammed. Please call back to schedule. Recent Surgery?: no If before 4:00 pm: [...] on filedocumented in this encounter Care Teams Lining Ironer Relationship Specialty Start Date End Date Rosario Varela APRN [address] [place] [address] PCP - General Family Medicine 02/03/18 09/19/20 documented as of this encounter
--- OUTSIDE RECORDS SUMMARY | 2024-02-29 15:51 | XMS_ITS | Encounter Summary ---
Author Organization [facility] [place] [address] Care Team Providers Care Vision Impaired Teacher Name Role Phone Rosario Varela APRN Primary Care Provider [phone] Encounter Details Date Type Department Care Team (Late st Contact Info) Description 07/29/2018 [place] [address] Skye Carlos Social History Tobacco Use Types Packs/Day Years [...] on filedocumented in this encounter Care Teams Vision Impaired Teacher Relationship Specialty Start Date End Date Rosario Varela APRN [address] [place] [address] PCP - General Family Medicine 02/03/18 09/19/20 documented as of this encounter
--- OUTSIDE RECORDS SUMMARY | 2024-02-29 15:51 | XMS_ITS | Encounter Summary ---
Author Organization [facility] Address [facility] [place] [address] Care Team Providers Care Exhibit Preparator Name Role Phone Cl Beltran MD Primary Care Provider [phone] Encounter Details Date Type Department Care Team (Latest Contact Info) Description 01/22/2017 9:57 AM EST - 01/22/2017 11:59 PM EST Hospital Encounter XRay at [address] [place] [address] Andrew Diaz MD Neck pain Discharge Disposition: Home Social History Tobacco Use [...] Date/Time Associated Diagnosis Comments XR CERVICAL SPINE FLEXION EXTENSION ONLY Routine 01/22/2017 10:55 AM EST Neck pain documented in this encounter Results * XR [...] encounter Visit Diagnoses Diagnosis Neck pain Cervicalgia documented in this encounter Care Teams Exhibit Preparator Relationship Specialty Start Date End Date Cl Beltran MD PCP - General 01/15/10 02/02/18 documented as of this encounter
--- OUTSIDE RECORDS SUMMARY | 2024-02-29 15:51 | XMS_ITS | Encounter Summary ---
Author Organization [place] [address] Care Team Providers Care Supervisor Cigar Processing Name Role Phone Cl Beltran MD Primary Care Provider [phone] Encounter Details Date Type Department Care Team (Late st Contact Info) Description 05/09/2017 Ancillary Procedure Radiology Library at [facility] [place] [address] Andrew Diaz MD Social History Tobacco Use [...] STORAGE ONLY CT HEAD AND SPINE Routine 05/09/2017 12:00 AM EDT documented in this encounter Results * Film Library- Storage Only CT Head And Spine (05/09/2017 12:00 AM EDT) Narrative [facility] - 01/21/2019 12:18 PM EST This exam is auto-finalizing. It's purpose is for storage only. Andrew Diaz MD IM FILM LIBRARY ORD ERABLES [place], [place] documented in this encounter Visit Diagnoses Not on filedocumented in this encounter Care Teams Supervisor Cigar Processing Relationship Specialty Start Date End Date Cl Beltran MD PCP - General 01/15/10 02/02/18 documented as of this encounter
--- OUTSIDE RECORDS SUMMARY | 2024-02-29 15:51 | XMS_ITS | Encounter Summary ---
Author Organization [facility] Address [facility] [place] [address] Care Team Providers Care Maid Supervisor Name Role Phone Cl Beltran MD Primary Care Provider [phone] Reason for Visit * Auth/Cert Specialty Diagnoses / Procedures Referred By Mansi t Referred To Contact Diagnoses Persistent headaches Headache Referral ID Status Reason Start Date Expiration Date Visits Re quested Visits Authorized [id number] 1 1 Encounter Details Date Type Department Care Team (Latest Contact Info) Description 01/13/2017 1:30 PM EST - 01/13/2017 11:59 PM EST Hospital Encounter XRay at [address] [place] [address] Helder Oviedo MD [facility] [place] [address] S/P EATING DISORDER PSYCHOLOGIST shunt Discharge Disposition: Home Social History Tobacco [...] Sig Dispensed Refills Start Date End Date TESTOSTERONE CYPIONATE IM Inject into the muscle every 14 days. 05/20/2018 gemfibrozil (LOPID) 600 mg Tablet Take 600 mg by mouth 2 times daily (before meals). 05/24/2022 carBAMazepine (TEGRETOL XR) 400 mg 12 hr tablet 06/17/200604/24 documented as of this encounter Plan of Treatment Not on file documented as of this encounter Procedures Procedure Name Priority Date/Time Associated Diagnosis Comments XR SHUNT SERIES Routine 01/13/2017 2:12 PM EST S/P EATING DISORDER PSYCHOLOGIST shunt documented in this encounter Results * XR Shunt Series (01/13/2017 2:12 PM EST) Anatomical Region Laterality Modality N/A Digital Radiogra phy Impressions 01/13/2017 3:17 PM EST EATING DISORDER PSYCHOLOGIST shunt catheter without evidence of kink or discontinuity. Narrative 01/13/2017 3:17 PM EST EXAMINATION: XR SHUNT SERIES CLINICAL HISTORY: Ventriculoperitoneal shunt; rule out disconnection. TECHNIQUE: Radiographic shunt series consisting of frontal and lateral radiographs of the skull, frontal and lateral radiographs of the chest, and frontal and lateral radiographs of the abdomen was obtained COMPARISON: Attention is also directed to the head CT dated 01/07/2017. FINDINGS: There is a ventriculoperitoneal shunt catheter tip projects over the midline calvarium and skull via a right frontal approach, without evidence of kink or discontinuity. The distal tip of the catheter projects over the anterior right lower quadrant of the abdomen. A separate segment of catheter material projects over the mediastinum on the frontal chest radiograph. No evidence of bowel obstruction. Right upper quadrant surgical clips compatible with prior cholecystectomy. An additional clip projecting over the left abdomen. Clear lungs. No cardiomegaly. Procedure Note Yury Weinstein MD - 01/13/2017 EXAMINATION: XR SHUNT SERIES CLINICAL HISTORY: Ventriculoperitoneal shunt; rule out disconnection. TECHNIQUE: Radiographic shunt series consisting of frontal and lateral radiographs ofthe skull, frontal and lateral radiographs of the chest, and frontal andlateral radiographs of the abdomen was obtained COMPARISON: Attention is also directed to the head CT dated 01/07/2017. FINDINGS: There is a ventriculoperitoneal shunt catheter tip projects over themidline calvarium and skull via a right frontal approach, without evidence of kinkor discontinuity. The distal tip of the catheter projects over the anteriorright lower quadrant of the abdomen. A separate segment of catheter material projects over the mediastinum onthe frontal chest radiograph. No evidence of bowel obstruction. Right upper quadrant surgical clipscompatible with prior cholecystectomy. An additional clip projecting over the leftabdomen. Clear lungs. No cardiomegaly. IMPRESSION EATING DISORDER PSYCHOLOGIST shunt catheter without evidence of kink or discontinuity. Helder Oviedo MD IMG DX ORDERABLES documented in this encounter Visit Diagnoses Diagnosis S/P EATING DISORDER PSYCHOLOGIST shunt Presence of cerebrospinal fluid drainage device documented in this encounter Care Teams Maid Supervisor Relationship Specialty Start Date End Date Cl Beltran MD PCP - General 01/15/10 02/02/18 documented as of this encounter
--- OUTSIDE RECORDS SUMMARY | 2024-02-29 15:51 | XMS_ITS | Encounter Summary ---
Author Organization [facility]ly [facility] Address [facility] [place] [address] Care Team Providers Care Caramel Cutter Machine Name Role Phone Rosario Varela APRN Primary Care Provider [phone] Reason for Referral * Diagnostic Test (Routine) - Closed Specialty Diagnoses / Procedures Referred By Contac t Referred To Contact Radiology Diagnoses Occipital neuralgia of right side Worsening headaches Procedures MRI Brain wo Contrast MRI Brain wwo Contrast (Generic) Lul Alvarez MD [facility] [place] [address] [place] [address] Referral ID Status Reason Start Date Expiration Date V isits Requested Visits Authorized [id number] Closed Specialty Service Requested 04/05/2018 04/05/2019 1 1 Reason for Visit * Diagnostic Test (Routine) - Closed Specialty Diagnoses / Procedures Referred By Contac t Referred To Contact Radiology Diagnoses Occipital neuralgia of right side Worsening headaches Procedures MRI Brain wo Contrast MRI Brain wwo Contrast (Generic) Lul Alvarez MD [facility] [place] [address] [place] [address] Referral ID Status Reason Start Date Expiration Date V isits Requested Visits Authorized [id number] Closed Specialty Service Requested 04/05/2018 04/05/2019 1 1 Encounter Details Date Type Department Care Team (Latest Contact Info) Description 04/22/2018 9:13 AM EST - 04/22/2018 11:59 PM EST Hospital Encounter MRI [facility] [place] [address] Lul Alvarez MD Occipital neuralgia of right side; Worsening headaches Discharge Disposition: Home Social History Tobacco [...] Sig Dispensed Refills Start Date End Date sertraline (ZOLOFT) 100 mg Tablet Take 150 mg by mouth daily. 0 03/19/2018 topiramate (TOPAMAX) 25 mg Tablet Take 1 tablet by mouth 2 times daily. 60 tablet 2 04/05/2018 05/20/2018 methylPREDNISolone (MEDROL DOSPACK) 4 mg Tablets, Dose [...] Name Priority Date/Time Associated Diagnosis Comments MRI BRAIN WO CONTRAST Routine 04/22/2018 10:10 AM EST Occipital neuralgia of right side Worsening headaches documented in this encounter Results * MRI Brain wo Contrast (04/22/2018 10:10 AM EST) Anatomical Region Laterality Modality Head Magnetic Resonan ce Impressions 04/22/2018 10:31 AM EST 1. No acute disease. 2. Right frontal [...] craniocervical junction consistent with severe aqueductal stenosis. Thank you for letting us participate in the care of this patient. For questions regarding this report, please contact the number below. ? Narrative 04/22/2018 10:31 AM EST EXAMINATION: MRI BRAIN WO CONTRAST CLINICAL HISTORY: Worsening headaches. 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 TECHNIQUE: MRI of the brain performed without intravenous contrast administration.Phase-contrast imaging was performed through the cerebral aqueduct in both the sagittal and axial planes. COMPARISON: CT venogram of the head 01/16/2017 FINDINGS: A right frontal ventricular shunt catheter [...] in caliber. The third ventricle remains slitlike. Old craniotomy gala holes with associated shunt tracts, one in the left frontal lobe and two in the right posterior frontal lobe. The suprasellar cistern and prepontine cistern remain normal in caliber and there is no slumping of the brainstem. Phase contrast images show no CSF flow through the cerebral aqueduct. There is flow along the ventral portion of the craniocervical junction into the prepontine cistern, with no discernible flow dorsal to the craniocervical junction. No acute intracranial hemorrhage, mass, midline shift, acute infarction, or herniation. Procedure Note Eris Hicks MD - 04/22/2018 EXAMINATION: MRI BRAIN WO CONTRAST CLINICAL HISTORY: Worsening headaches. h/o congenital aqueductal stenosiswith shunt placement for hydrocephalus. TECHNIQUE: MRI of the brain performed without intravenous contrast administration.Phase-contrast imaging was performed through the cerebral aqueduct in both the sagittal and axial planes. COMPARISON: CT venogram of the head 01/16/2017 FINDINGS: A right frontal ventricular shunt catheter remains in place with tip inthe region of the frontal horn of the left lateral ventricle. The frontalhorns remain slitlike and caliber as do the bodies of the lateral ventricles.The ventricular atria remain normal in caliber. The left temporal hornremains essentially collapsed with the right temporal horn normal in caliber. Thethird ventricle remains slitlike. Old craniotomy gala holes with associated shunt tracts, one in the leftfrontal lobe and two in the right posterior frontal lobe. The suprasellar cistern and prepontine cistern remain normal in caliberand there is no slumping of the brainstem. Phase contrast images show no CSF flow through the cerebral aqueduct.There is flow along the ventral portion of the craniocervical junction into the prepontine cistern, with no discernible flow dorsal to thecraniocervical junction. No acute intracranial hemorrhage, mass, midline shift, acute infarction,or herniation. IMPRESSION 1. No acute disease. 2. Right frontal ventriculoperitoneal catheter shunt remains in place witha slitlike appearance throughout the majority of the lateral ventricles andthe third ventricle. Please correlate clinically for any evidence of overshunting although there is no slumping of the brainstem. 3. No CSF flow through the cerebral aqueduct or about the dorsal aspect ofthe craniocervical junction consistent with severe aqueductal stenosis. Thank you for letting us participate in the care of this patient. Forquestions regarding this report, please contact the number below. Electronically signed by: HAIM Vivar [facility] ([phone]),at 04/22/2018 10:31 AM Lul Alvarez MD IMG MRI ORDERABLES documented in this encounter Visit Diagnoses Diagnosis Occipital neuralgia of right side Worsening headaches Headache documented in this encounter Care Teams Caramel Cutter Machine Relationship Specialty Start Date End Date Rosario Varela APRN [address] [place] [address] PCP - General Family Medicine 02/03/18 09/19/20 documented as of this encounter
--- OUTSIDE RECORDS SUMMARY | 2024-02-29 15:51 | XMS_ITS | Encounter Summary ---
[place] [address] Care Team Providers Care Chemical Processing Laborer Name Role Phone Rosario Varela APRN Primary Care Provider [phone] Reason for Visit * Reason Onset Date Comments Other 04/27/2018 Encounter Details Date Type Department Care Team (Late st Contact Info) Description 04/27/2018 [place] [phone] Lul Alvarez MD Other Social History Tobacco Use Types Packs/Day [...] Telephone Encounter - Tosha Jerome RN - 04/30/2018 2:18 PM EST Called Chapin to ask about PT. Reports he has the referral and the appointment. Has no questions or concerns at this time. He will update Dr. Alvarez during his follow-up appointment. * Telephone Encounter - Tosha Jerome RN - 04/27/2018 12:34 PM EST Called to notify Chapin per Dr. Alvarez: We can give a referral for neck PT instead. Patient verbalized understanding and agrees to neck PT. He would like to go to [facility] Physical therapy in [facility]. No other questions or concerns at this time. * Telephone Encounter - Christianne San - 04/27/2018 10:44 AM EST Clinical Day Care Teacher Message Caller: Chapin If not Pt / Relation to pt: Call back Number: [phone] Best time to reach caller: Anytime Reason for call: Insurance does not cover chiropractic services Message/information for the nurse: Chapin called stating Dr. Alvarez recommended he see a chiropractor, but Chapin's insurance does not cover chiropractic services, and therefore he cannot go that route. Chapin is asking what he should do instead? Disposition of Call ?? Routine Message sent to the Nurse documented in this encounter Plan of Treatment Not on file documented as of this encounter Visit Diagnoses Not on filedocumented in this encounter Care Teams Chemical Processing Laborer Relationship Specialty Start Date End Date Rosario Varela APRN [address] [place] [address] PCP - General Family Medicine 02/03/18 09/19/20 documented as of this encounter
--- OUTSIDE RECORDS SUMMARY | 2024-02-29 15:51 | XMS_ITS | Encounter Summary ---
[place] [address] Care Team Providers Care Meeting Facilitator Name Role Phone Rosario Varela APRN Primary Care Provider [phone] Encounter Details Date Type Department Care Team (Late st Contact Info) Description 05/20/2018 8:45 AM EDT Office [place] [phone] Lul Alvarez MD Cervicogenic headache; Occipital neuralgia of right side; Worsening headaches; Congenital hydrocephalus; Seizure disorder Social History Tobacco Use Types Packs/Day Years [...] Sign Reading Time Taken Comments Blood Pressure 152/88 05/20/2018 8:35 AM EDT Pulse 89 05/20/2018 8:35 AM EDT Temperature - - Respiratory Rate - - Oxygen Saturation - - Inhaled Oxygen Concentration - - Weight 77.1 kg (170 lb) 05/20/2018 8:35 AM EDT Height 170.2 cm (5' 7) 05/20/2018 8:35 AM EDT r eported Body Mass Index 26.63 05/20/2018 8:35 AM EDT documented in this encounter Progress Notes * Lul Alvarez MD - 05/20/2018 8:45 AM EDT Images from the original note were not included. [place] [address] 05/20/2018 Patient name: Chapin Costa Date of : 1970 Referring provider: Rosario Varela APRN [address] [place] [address] HISTORY ?? REASON FOR REFERRAL/CHIEF COMPLAINT: Headache [...] PT so far. It hasn't helped much. PMHx: No past medical history on file. [...] He lives with and step daughters in [facility]. Review of systems: Constitutional: No fever/chills Eyes: [...] CRP 2.6 01/15/2017 B12No results found for: [id number] CKNo results found for: CK Angiotensin ConvertaseNo [...] LDLCHOL, LDLDIRECT JOSELIN 65No results found for: [id number] ANTI GM1,ANTI SGPG, MAG@RESUFAST (MAGAUTOAB,SGPG,MAGWB,GM1AB)@ HEAVY METAL [...] This test has been modified from the transfer operator's instructions. Its performance characteristics were determined by [facility] in a manner consistent with CLIA requirements. This test has not been cleared or approved by the U.S. Food and Drug Administration. Albumin, CSF 192.0 H mg/dL <=27.0 ADDITIONAL INFORMATION This test has been modified from the transfer operator's instructions. Its performance characteristics were determined by [facility] in a manner consistent with CLIA requirements. This test has not been cleared or approved by the U.S. Food and Drug Administration. IgG/Albumin, CSF 0.10 <=0.21 Synthesis Rate, CSF 14.92 H mg/24 h <=12 IgG, S 962 mg/dL 767 - 1590 Albumin, S 4920 H mg/dL 3200 - 4800 IgG/Albumin, S 0.20 <=0.40 Test Performed by: [address] [address] OLIGOCSF 01/16/2017 Test Result Flag Unit RefValue Oligoclonal Banding Serum Bands 0 bands CSF Bands 0 bands CSF Olig Bands Interpretation 0 bands <4 The oligoclonal band assay detected 3 or fewer unique IgG bands in the CSF. This is a negative result. Test Performed by: [facility] - [address] [address] ENTVPCR Negative 01/16/2017 VZVPCR 01/16/2017 Test Result Flag Unit RefValue Varicella-Zoster Virus PCR Specimen Source csf Varicella-Zoster Virus PCR Negative Negative ADDITIONAL INFORMATION This test was developed and its performance characteristics determined by [facility] in a manner consistent with CLIA requirements. This test has not been cleared or approved by the U.S. Food and Drug Administration. Test Performed by: [facility] - [address] [address] PARANEOPLASTIC PANEL No results found for: PARANEOINTRP, ANNA1, ANNA2, ANNA3, AGNA1, PCA1, PCA2, PCATYPETR, AMPHIPHYSIN,[id number], STRIATMSCLAB, CACHABPQTYPE, CACHABNTYPE, ACHRBINDAB, NEUROKCHAB, NMDARECEPTOR, [id number] THROMBOSIS HOMEOCYSTEINENo results found for: HOMOCYSTEINE THROMBOSIS PANELNo results found for: ACAIGM, [id number] FACTOR V LEIDEN No components found for: [...] migraine headaches. 4. Epilepsy - controlled. PLAN/RECOMMENDATIONS: Headaches persisting. Topiramate increased to 50 BID Flexeril HS. Continue neck PT Occipital nerve blocks administered in clinic today Follow up in 2 months. Lul Alvarez MD Department of Neurology [facility] documented in this encounter Procedure Notes * Lul Alvarez MD - 05/20/2018 8:45 AM EDT Procedure Note Procedure: Bilateral Greater Occipital Nerve Blocks Indication: Headache with occipital/cervical tenderness Consent: Indication, risks, benefits, and alternatives discussed with patient, including risk of bleeding, infection, permanent numbness, and medication reaction. Consent signed by patient Location: The greater occipital nerve was located by first palpating the mastoid and midline occipital ridge. The nerve was palpated at 2/3 the distance to the occipital ridge. It was coincident withmaximal tenderness Medication: 50/50 mixture of 1% lidocaine and 0.25% bupivacaine Technique: The area was cleansed with 2 alcohol swabs while using clear gloves. Using a 3 cc syringe and a 25 guage 5/8 inch needle, 3 cc of the medication mixture was injected into multiple tissue planes in the area around each greater occipital nerve. Prior to each injection the plunger was drawnback to ensure that the needle was not in a blood vessel. The patient tolerated the procedure well. Complications: None Blood loss: <1 cc documented in this encounter Plan of Treatment Not on file documented as of this encounter Visit Diagnoses Diagnosis Cervicogenic headache Headache Occipital neuralgia of right side Worsening headaches Headache Congenital hydrocephalus Seizure disorder Unspecified epilepsy without mention of intractable epilepsy documented in this encounter Care Teams Meeting Facilitator Relationship Specialty Start Date End Date Rosario Varela APRN [address] [place] [address] PCP - General Family Medicine 02/03/18 09/19/20 documented as of this encounter
--- OUTSIDE RECORDS SUMMARY | 2024-02-29 15:51 | XMS_ITS | Encounter Summary ---
[place] [address] Care Team Providers Care Damaged Freight Inspector Name Role Phone Rosario Varela APRN Primary Care Provider [phone] Reason for Visit * Reason Comments Procedure codeman VPS chevk s/ p MRI Encounter Details Date Type Department Care Team (Late st Contact Info) Description 04/22/2018 10:30 AM EST [place] [phone] Meghan Rondon RN SAP ADMINISTRATOR (ventriculoperitoneal ) shunt status Social History Tobacco Use Types Packs/Day Years [...] of this encounter Progress Notes * Meghan Rondon RN - 04/22/2018 10:30 AM EST Chapin is s/p MRI today for c/o neck pain. I saw him after the MRI to set the right Codman occipital VPS to 80 mm. That was the last documented setting as of 01/19/[address] Bee. Setting was confirmed by the metal numerical tool programmer. documented in this encounter Plan of Treatment Not on file documented as of this encounter Visit Diagnoses Diagnosis SAP ADMINISTRATOR (ventriculoperitoneal) shunt status Presence of cerebrospinal fluid drainage device documented in this encounter Care Teams Damaged Freight Inspector Relationship Specialty Start Date End Date Rosario Varela APRN [address] [place] [address] PCP - General Family Medicine 02/03/18 09/19/20 documented as of this encounter
--- OUTSIDE RECORDS SUMMARY | 2024-02-29 15:51 | XMS_ITS | Encounter Summary ---
Author Organization [facility] [place] [address] Care Team Providers Care Client Services Analyst Name Role Phone Cl Beltran MD Primary Care Provider [phone] Encounter Details Date Type Department Care Team (Late st Contact Info) Description 01/14/2017 [place] [address] Sonia Escalona APRN [facility] [place] [address] Social History Tobacco Use Types Packs/Day Years [...] Telephone Encounter - Sonia Escalona APRN - 01/14/2017 2:19 PM EST Chapin called after being seen in clinic by myself with consult by Cl Atkins and Dr. Emily salas that he now has headache along the side of his head at bottom of where shunt is along path oftubing in right parietal area and that his headache is as bad as ever. He says he [address] [facility]. I advised him to come to ED for evaluation by neurosurgeon for possible shunt ta p or radioactive tracing of CSF flow. He is in agreement with that plan, and will come to ED karla. documented in this encounter Plan of Treatment Not on file documented as of this encounter Visit Diagnoses Not on filedocumented in this encounter Care Teams Client Services Analyst Relationship Specialty Start Date End Date Cl Beltran MD PCP - General 01/15/10 02/02/18 documented as of this encounter
--- OUTSIDE RECORDS SUMMARY | 2024-02-29 15:51 | XMS_ITS | Encounter Summary ---
Author Organization [facility] [place] [address] Care Team Providers Care Financial Compliance Officer Name Role Phone Rosario Varela APRN Primary Care Provider [phone] Reason for Referral * Diagnostic Test (Routine) - Closed Specialty Diagnoses / Procedures Referred By Contnu t Referred To Contact Radiology Diagnoses Occipital neuralgia of right side Worsening headaches Procedures MRI Brain wo Contrast MRI Brain wwo Contrast (Generic) Lul Alvarez MD [facility] [place] [address] [place] [address] Referral ID Status Reason Start Date Expiration Date V isits Requested Visits Authorized [id number] Closed Specialty Service Requested 04/05/2018 04/05/2019 1 1 * Chiropractic (Routine) - Specialty Diagnoses / Procedures Referred By Mansi cooley Referred To Contact Diagnoses Occipital neuralgia of right side Worsening headaches Lul Alvarez MD [facility] [place] [address] Referral ID Status Reason Start Date Expiration Date V isits Requested Visits Authorized [id number] Consult, Test & Treat 04/05/2018 10/02/2018 1 1 Reason for Visit * Consultation (Routine) - Closed Specialty Diagnoses / Procedures Referred By Mansi cooley Referred To Contact Neurology Diagnoses referral is for HEADACHE, patient has EPILEPSY, HYDROCEPHALUS Rosario Varela APRN [address] [place] [address] [facility] Neurology [address] [place] [phone] Referral ID Status Reason Start Date Expiration Date V isits Requested Visits Authorized [id number] Closed Consult, Test & Treat [facility] 02/03/2018 02/03/2019 1 1 Encounter Details Date Type Department Care Team (Latest Contact Info) Description 04/05/2018 10:00 AM EST [place] [address] Lul Alvarez MD Occipital neuralgia of right side; Worsening headaches; Seizure disorder; Congenital hydrocephalus Social History Tobacco Use Types [...] Progress Notes * Lul Alvarez MD - 04/05/2018 10:00 AM EST Images from the original note were not included. [place] [address] 04/05/2018 Patient name: Chapin Costa Date of : 1970 Referring provider: Rosario Varela APRN [address] [place] [address] HISTORY ?? REASON FOR REFERRAL/CHIEF COMPLAINT: Headache [...] by neurosurgery at that time as well. PMHx: No past medical history on file. [...] He lives with and step daughters in [facility]. Review of systems: Constitutional: No fever/chills [...] no distress ENT, Throat: oral mucosa moist. Cardiovascular: Rate regular, S1S2 normal, no murmur Respiratory: Symmetric expansion, lungs clear to auscultation Gastrointestinal: Abdomen soft, nontender Extremity: no edema Skin: No rashes noted, neck scarring from prior surgical procedures. Neurological Examination o Higher functions: - Speech: fluent, no aphasia/dysarthria or dysphonia - Alert and oriented. o Cranial Nerves - II-XII: Eyes dysconjugate in primary position. R eye exotropia. reacting to light. No ptosis/nystagmus. Vision normal. No field deficits. EOMI. No facial droop. No weakness of jaw/uvula/ palate - Dizziness with [place] Hallpike head to R o Reflexes - Brisk bilaterally biceps, BR and knee o Motor and Coordination - Normal tone, bulk strength and coordination of right and left sided muscles o Sensory - Normal sensations bilaterally. o Skull and Spine/ Gait - Limited neck ROM - Occipital nerve tenderness R side. - Normal gait - Tandem: Imbalance wits sway to either side. ?? LABS AND IMAGING ?? Labs GENERAL THYROID: Lab Results Component Value Date TSH 3.37 01/15/2017 FolateNo results found for: SFOLATE ESR Lab Results Component Value Date SEDRATE 7 01/15/2017 CRP Lab Results Component Value Date CRP 2.6 01/15/2017 B12No results found for: [id number] CKNo results found for: CK Angiotensin ConvertaseNo [...] LDLCHOL, LDLDIRECT JOSELIN 65No results found for: [id number] ANTI GM1,ANTI SGPG, MAG@RESUFAST (MAGAUTOAB,SGPG,MAGWB,GM1AB)@ HEAVY METAL [...] This test has been modified from the stitcher set up operator automatic's instructions. Its performance characteristics were determined by [facility] in a manner consistent with CLIA requirements. This test has not been cleared or approved by the U.S. Food and Drug Administration. Albumin, CSF 192.0 H mg/dL <=27.0 ADDITIONAL INFORMATION This test has been modified from the stitcher set up operator automatic's instructions. Its performance characteristics were determined by [facility] in a manner consistent with CLIA requirements. This test has not been cleared or approved by the U.S. Food and Drug Administration. IgG/Albumin, CSF 0.10 <=0.21 Synthesis Rate, CSF 14.92 H mg/24 h <=12 IgG, S 962 mg/dL 767 - 1590 Albumin, S 4920 H mg/dL 3200 - 4800 IgG/Albumin, S 0.20 <=0.40 Test Performed by: [address] [address] OLIGOCSF 01/16/2017 Test Result Flag Unit RefValue Oligoclonal Banding Serum Bands 0 bands CSF Bands 0 bands CSF Olig Bands Interpretation 0 bands <4 The oligoclonal band assay detected 3 or fewer unique IgG bands in the CSF. This is a negative result. Test Performed by: [facility] - [address] [address] ENTVPCR Negative 01/16/2017 VZVPCR 01/16/2017 Test Result Flag Unit RefValue Varicella-Zoster Virus PCR Specimen Source csf Varicella-Zoster Virus PCR Negative Negative ADDITIONAL INFORMATION This test was developed and its performance characteristics determined by [facility] in a manner consistent with CLIA requirements. This test has not been cleared or approved by the U.S. Food and Drug Administration. Test Performed by: [facility] - [address] [address] PARANEOPLASTIC PANEL No results found for: PARANEOINTRP, ANNA1, ANNA2, ANNA3, AGNA1, PCA1, PCA2, PCATYPETR, AMPHIPHYSIN,[id number], STRIATMSCLAB, CACHABPQTYPE, CACHABNTYPE, ACHRBINDAB, NEUROKCHAB, NMDARECEPTOR, [id number] THROMBOSIS HOMEOCYSTEINENo results found for: HOMOCYSTEINE THROMBOSIS PANELNo results found for: ACAIGM, [id number] FACTOR V LEIDEN No components found for: FACTORVLEIDEN PROTEIN C,SNo components found for: PROTEINC, PROTEINS ANTITHROMBIN IIINo components found for: ANTITHROMBINIII Miscellaneous Send outsNo results found for: MISCSENDOUT, MISCMAYO MRI C spine: DJD changes. CT head: shunt +. Venrtricles- contracted. ASSESSMENT, PLAN & RECOMMENDATIONS ?? ASSESSMENT: 47 Y M with history of congenital aqueduct stenosis, hydrocephalus s/p shunt surgery, epilepsy, chronic migraines, depression, DJD spine referred for evaluation of worsening headaches. Onevaluation he has dysconjugate eyes with R exotropia. He has cervicogenic dizziness, and occipital neuralgia on the right side. Prior CT head shows shunt in situ with decompressed ventricles, DJD C spine showed DJD changes. IMPRESSION: 1. Cervicogenic headaches and Dizziness 2. Occipital neuralgia R 3. Chronic migraine headaches. 4. Epilepsy - controlled. PLAN/RECOMMENDATIONS: He seems to have chronic headaches which are now worsened by cervicogenic causes and occipital neuralgia on R side. He was started on topiramate 25 mg BID with plan to titrate up to 50 BID on follow up visit. MRI brain to rule out other pathology. Chiropractic therapy referral given. Neck massages/ local applicants may be helpful Follow up in a month. Lul Alvarez MD Department of Neurology [facility] documented in this encounter Plan of Treatment Scheduled Referrals Name Type Priority Associated Diagnoses Order Schedule Referral to Chiropractic Outpatient Referral Routine Occipital neuralgia of right side Worsening headaches Ordered: 04/05/2018 documented as of this encounter Results * MRI Brain wo [...] contact the number below. Electronically signed by: Eris [facility] ([phone]),at 04/22/2018 10:31 AM Lul Alvarez MD IMG MRI ORDERABLES documented in this encounter Visit Diagnoses Diagnosis Occipital neuralgia of right side Worsening headaches Headache Seizure disorder Unspecified epilepsy without mention of intractable epilepsy Congenital hydrocephalus Occipital neuralgia of right side Worsening headaches Headache documented in this encounter Care Teams Financial Compliance Officer Relationship Specialty Start Date End Date Rosario Varela, LIZA [address] [place] [address] PCP - General Family Medicine 02/03/18 09/19/20 documented as of this encounter
--- OUTSIDE RECORDS SUMMARY | 2024-02-29 15:52 | XMS_ITS | Encounter Summary ---
Author Organization [facility] [place] [address] Care Team Providers Care Grain Elevator Motor Starter Name Role Phone Cl Beltran MD Primary Care Provider [phone] Encounter Details Date Type Department Care Team (Late st Contact Info) Description 10/24/2016 Ancillary Procedure Radiology Library at [facility] [place] [address] Andrew Diaz MD Social History Tobacco Use [...] FILM LIBRARY STORAGE ONLY CT HEAD Routine 10/24/2016 12:00 AM EDT documented in this encounter Results * Film Library- Storage Only CT Head (10/24/2016 12:00 AM EDT) Narrative [facility] - 01/21/2019 12:16 PM EST This exam is auto-finalizing. It's purpose is for storage only. Andrew Diaz MD IMG FILM LIBRARY ORD ERABLES [facility] [place], [place] documented in this encounter Visit Diagnoses Not on filedocumented in this encounter Care Teams Grain Elevator Motor Starter Relationship Specialty Start Date End Date Cl Beltran MD PCP - General 01/15/10 02/02/18 documented as of this encounter
--- OUTSIDE RECORDS SUMMARY | 2024-02-29 15:52 | XMS_ITS | Encounter Summary ---
Author Organization [facility] Address [facility] [place] [address] Care Team Providers Care Furnace Operator And Tender Name Role Phone Cl Beltran MD Primary Care Provider [phone] Encounter Details Date Type Department Care Team (Latest Contact Info) Description 01/07/2017 - 01/07/2017 11:59 PM EST Hospital Encounter Radiology Library at [facility] [place] [id number] Helder Oviedo MD [facility] [place] [address] Pain Discharge Disposition: Home Social History Tobacco Use [...] Sig Dispensed Refills Start Date End Date carBAMazepine (TEGRETOL XR) 400 mg 12 hr tablet 06/17/2006 05/20/2018 documented as of this encounter Plan of Treatment Not on file documented as of this encounter Procedures Procedure Name Priority Date/Time Associated Diagnosis Comments FILM LIBRARY STORAGE ONLY CT HEAD Routine 01/07/2017 12:00 AM EST Pain documented in this encounter Results * Film Library- Storage Only CT Head (01/07/2017 12:00 AM EST) Narrative [facility] - 01/12/2017 2:38 PM EST This exam is for storage only and is auto-finalizing. Helder Oviedo MD IMG FILM LIBRARY ORD ERABLES Performing Organization Address City/State/[facility] Co de Phone Number [place], [place] documented in this encounter Visit Diagnoses Diagnosis Pain Generalized pain documented in this encounter Care Teams Furnace Operator And Tender Relationship Specialty Start Date End Date Cl Beltran MD PCP - General 01/15/10 02/02/18 documented as of this encounter
--- OUTSIDE RECORDS SUMMARY | 2024-02-29 15:52 | XMS_ITS | Encounter Summary ---
Author Organization [facility] Address [facility] [place] [address] Care Team Providers Care Gymnastics Coach Or Instructor Name Role Phone Cl Beltran MD Primary Care Provider [phone] Encounter Details Date Type Department Care Team (Late st Contact Info) Description 01/12/2017 Orders [place] [address] Cl Atkins, [facility] [place] [address] S/P CABIN WORKER shunt Social History Tobacco Use Types Packs/Day [...] Radiogra phy Impressions 01/13/2017 3:17 PM EST CABIN WORKER shunt catheter without evidence of kink or [...] the leftabdomen. Clear lungs. No cardiomegaly. IMPRESSION CABIN WORKER shunt catheter without evidence of kink or discontinuity. Helder Oviedo MD IMG DX ORDERABLES documented in this encounter Visit Diagnoses Diagnosis S/P CABIN WORKER shunt Presence of cerebrospinal fluid drainage device S/P CABIN WORKER shunt Presence of cerebrospinal fluid drainage device documented in this encounter Care Teams Gymnastics Coach Or Instructor Relationship Specialty Start Date End Date Cl Beltran MD PCP - General 01/15/10 02/02/18 documented as of this encounter
[2024-02-29 16:55] LABS: Cholesterol 195 mg/dL (<200); HDL Cholesterol 40 mg/dL (40-60); TSH 2.55 uIU/mL (0.36-3.74); Triglyceride 583 mg/dL (<150)
[2024-02-29 17:17] LABS: LDL CHOLESTEROL 79 mg/dL (<100)
== END 2024-02-29 15:35 | disposition home or self-care (01) ==
LOC: NCHCN 15:34
PROVIDERS: PCP Physician Assistant; Visit Provider Physician Assistant
DX: E78.5 Hyperlipidemia, unspecified (principal)
CPT/HCPCS: 80061; 83721; 84443

== ENCOUNTER 2024-03-26 16:01 | Outpatient (REF) | payer MEDICARE, MEDICAID, SELFPAY ==
[2024-03-26 17:21] LABS: COVID-19 PCR Negative (Negative); Influenza A PCR Negative (Negative); Influenza B PCR Negative (Negative); RSV PCR Negative (Negative)
[2024-03-26 17:23] LABS: Source NASOPHARYNX
== END 2024-03-26 16:02 | disposition home or self-care (01) ==
LOC: LBN 16:01
PROVIDERS: PCP Physician Assistant; Visit Provider Physician Assistant Medical
DX: B34.9 Viral infection, unspecified (principal)
CPT/HCPCS: 87637

== ENCOUNTER → 2024-03-29 10:54 | Outpatient (BNVA) | payer MEDICARE, MEDICAID, SELFPAY | PROVIDERS: PCP Physician Assistant; Referring Provider Physician Assistant; Visit Provider Nurse Practitioner Adult Health | DX: G56.01 Carpal tunnel syndrome, right upper limb (principal); R25.1 Tremor, unspecified | CPT/HCPCS: 95909; 99215 ==

== ENCOUNTER 2024-05-06 02:13 | Outpatient (CLI) | payer MEDICARE, MEDICAID, SELFPAY ==
--- NOTE | 2024-05-11 09:45 | PDOC.EEG ---
Neurology EEG EEG: [facility] Department of Neurology LONG-TERM AMBULATORY EEG REPORT Date of Recordin05/06/24 at 09:30:08 to 05/08/24 at 14:08:04 Interpreting Physician: Dr. Megan Coy PCP/Referring Provider: MARVA Gordon/Brenda Fernandes NP Reason for study: Chapin Costa is a 53 year-old with congenital aqueductal stenosis and subsequent FILM HISTORIAN shunt with multiple revisions with recent events of grunting and mouth movements, concerning for seizures. Current Medications: Home Medications ?Medication ?Instructions ?Recorded ?Confirmed ?Type levothyroxine 25 mcg tablet 25 mcg PO DAILY 01/27/19 05/09/24 History acetaminophen 500 mg tablet 500 mg PO Q6H PRN PRN pain #60 tabs 10/11/19 05/09/24 Rx ibuprofen 600 mg tablet 600 mg PO Q8H PRN PRN pain #60 tabs 10/11/19 05/09/24 Rx metoprolol succinate 25 mg 25 mg PO DAILY 12/18/21 05/09/24 History tablet,extended release 24 hr atorvastatin 10 mg tablet 10 mg PO DAILY 06/04/22 05/09/24 History cholecalciferol (vitamin D3) 50 50 mcg PO DAILY 06/04/22 05/09/24 History mcg (2,000 unit) capsule erenumab-aooe 70 mg/mL 70 mg subcut QMONTH #1 mL 06/03/23 05/09/24 Rx subcutaneous auto-injector (Aimovig Autoinjector) hydroxyzine HCl 25 mg tablet 25 mg PO Q6H PRN 06/06/23 05/09/24 History sertraline 100 mg tablet 100 mg PO DAILY 06/06/23 05/09/24 History blunt needle, disposable 18 x 1 #100 ea 08/03/23 05/09/24 Rx 1/2 syringe (disposable) 5 mL (BD #100 ea 08/03/23 05/09/24 Rx Luer-Kayla Syringe) safety needles 25 gauge x 1 1/2 #6 ea 12/08/23 05/09/24 Rx (BD Eclipse Luer-Kayla) aripiprazole 5 mg tablet 5 mg PO DAILY 02/15/24 05/09/24 History cyanocobalamin (vitamin B-12) 500 1,000 mcg sublingual DAILY 02/15/24 05/09/24 History mcg sublingual tablet pantoprazole 40 mg tablet,delayed 40 mg PO DAILY 02/15/24 05/09/24 History release topiramate 25 mg capsule,extended 25 mg PO DAILY 02/15/24 05/09/24 History release 24 hr testosterone cypionate 200 mg/mL 200 mg IM Q2W #10 mL 03/07/24 05/09/24 Rx intramuscular oil fenofibrate 160 mg tablet 160 mg PO DAILY 03/29/24 05/09/24 History rimegepant 75 mg disintegrating 75 mg PO ONCE PRN 03/29/24 05/09/24 History tablet (Nurtec ODT) lorazepam 0.5 mg tablet 0.5 mg PO DAILY PRN Lip smacking 05/09/24 Rx #6 tabs METHODS: An 18-channel digitized electroencephalogram was recorded in the ambulatory setting with video. The 10/20 international system of electrode placement was used and bipolar and referential electrode montages were recorded. In addition to EEG the patient was monitored for EKG and by video. Activation procedures of photic stimulation and hyperventilation were performed if applicable. The duration of the recording was ~54 hours. DESCRIPTION OF EEG: Waking background activity: During maximal wakefulness a 9-Hz posterior background rhythm was present which was well-modulated, symmetrical, reactive to eye opening, and of moderate voltage. Faster frequencies were present in the bilateral anterior head regions. There was a normal anterior-posterior voltage gradient. There was subtle, continuous, high-amplitude, sharply-contoured activity intermixed with beta frequency activity over the right hemisphere, maximal over the frontocentral region (F4/C4), consistent with a breach rhythm. Drowsy and sleeping background activity: During drowsiness, there was attenuation of the posterior dominant background rhythm and vertex waves. Normal stage II and III sleep was present with symmetrical (though slightly right hemisphere predominant) sleep spindles, K-complexes, and vertex waves with slowing of the background rhythm to delta/theta frequencies. REM sleep manifested by rapid lateral eye movements and faster background rhythms was recorded. Arousal was unremarkable. Interictal abnormalities: none. Ictal findings: Event #1-31 on 05/06/24 x 1 at 20:45:31, on 05/07/24 x 23 from 09:18:59 to 23:31:43, and on 05/08/24 x 7 from 00:35:56 to 13:58:37 -Clinical manifestations: Unknown. 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 -EEG findings: Baseline awake EEG findings with varying motion/muscle artifact. There was no epileptiform activity with any of these 31 events. Activating Procedures: Photic stimulation and hyperventilation were performed, but due to a echnical issue with the equipment, were not available for my review. EKG: EKG revealed normal sinus rhythm. INTERPRETATION: This long-term EEG is abnormal due to a right frontocentral breach rhythm. 31 events reported during the study - though no clinical symptoms provided - none with associated epileptiform activity. PRIOR EEG: none CLINICAL CORRELATION: The breach rhythm above is consistent with the patient's known history of skull defect secondary to FILM HISTORIAN shunt. No focal regions of cerebral dysfunction or epileptiform activity was present. 31 events captured as above not associated with epileptiform activity. Epilepsy remains a clinical diagnosis and a normal EEG does not rule out epilepsy. Clinical correlation is advised. Megan Coy MD Date of service: 05/06/24
== END 2024-05-11 23:59 | disposition home or self-care (01) ==
LOC: RT 02:13
PROVIDERS: PCP Physician Assistant; Visit Provider Nurse Practitioner Adult Health
DX: Q03.0 Malformations of aqueduct of Sylvius (principal); R94.01 Abnormal electroencephalogram [EEG]; Z98.2 Presence of cerebrospinal fluid drainage device; R46.89 Other symptoms and signs involving appearance and behavior
CPT/HCPCS: 95714; 95722

== ENCOUNTER 2024-05-09 12:00 | Emergency (ER) | payer MEDICARE, MEDICAID, SELFPAY ==
[2024-05-09] VITALS (21 sets, daily range): BP systolic 108–126; BP diastolic 79–98; PULSE 54–75; RESP 11–17; TEMP 36.4; O2SAT 89–99
--- NOTE | 2024-05-09 12:15 | DI.CT_ITS ---
Exam(s) CT HEAD WO EXAM: CT HEAD WO CLINICAL HISTORY: ASSOCIATE GENETICS PROFESSOR shunt slurred speech. TECHNIQUE: Imaging Protocol: Axial computed tomography images with coronal and sagittal reformatted images were created and reviewed COMPARISON: No exams were available for comparison FINDINGS: Ventricles and Extra axial spaces: Previously noted right-sided ventricular peritoneal shunt has been removed. There is a new ventriculoperitoneal shunt entering from the left parietal region and sendi ng to the midline and terminating in the 3rd ventricle. Hemorrhage: None. Cerebral parenchyma: No evidence of acute infarct or mass. There is a small area of encephalomalacia in the right frontal lobe related to the previous shunt. Midline shift: None. Brainstem/Cerebellum: Normal. Calvarium: Bony defects related to ventriculoperitoneal shunt in both frontal bones and bilateral par ietal bones. Visualized Paranasal sinuses:Clear. Mastoids: Clear. Soft Tissues: Unremarkable. ORBITS: Unremarkable. PITUITARY: Not enlarged. IMPRESSION: No acute intracranial process. Removal of previously noted right-sided ASSOCIATE GENETICS PROFESSOR shunt and interval placement of left-sided ASSOCIATE GENETICS PROFESSOR shunt. No c hange in distal ventricular size or configuration. RADIATION DOSE DELIVERED: 853.3mGy.cm Total DLP DATA REPOSITORY: All CT scans at this facility are submitted to the National Radiology Data Registry (NRDR) Dose Index Registry (DIR) with the [employer] ([employer]). RADIATION OPTIMIZATION: All CT scans at this facility use at least one of these dose optimization te chniques: automated exposure control; mA and/or kV adjustment per patient size (includes targeted exa ms where dose is matched to clinical indication); or iterative reconstruction.
--- NOTE | 2024-05-09 12:15 | RT.EKG_ITS ---
APPROVED REPORT Exam: Resting ECG Reason for Exam: AMS Patient Location: E HR:68 bpm ECG Measurements Heart Rate 68 AXIS NC 132 P 43 QRSd 74 QRS 40 QT 416 T 33 QTc 443 Conclusion Sinus rhythm...normal P axis, V-rate 60- 99 No STEMI
--- NOTE | 2024-05-09 12:26 | ED.GENADUL_ITS ---
Discharge Plan Disposition Patient Disposition: Home Condition: Stable Discharge Details Clinical Impression: Extrapyramidal reaction, Tardive dyskinesia Primary Care Provider: Peter Lebron ED Provider: Caro Friedman Home Meds and New Rx's Prescriptions: New lorazepam 0.5 mg tablet 0.5 mg PO DAILY PRN (Reason: Lip smacking) Qty: 6 0RF Rx Instructions: Take one tablet by mouth once a day as needed for symptoms Continued atorvastatin 10 mg tablet 10 mg PO DAILY cholecalciferol (vitamin D3) 50 mcg (2,000 unit) capsule 50 mcg PO DAILY metoprolol succinate 25 mg tablet extended release 24 hr 25 mg PO DAILY topiramate 25 mg capsule,extended release 24hr 25 mg PO DAILY cyanocobalamin (vitamin B-12) 500 mcg tablet, sublingual 1,000 mcg sublingual DAILY levothyroxine 25 mcg tablet 25 mcg PO DAILY acetaminophen 500 mg tablet 500 mg PO Q6H PRN PRN (Reason: pain) Qty: 60 3RF ibuprofen 600 mg tablet 600 mg PO Q8H PRN PRN (Reason: pain) Qty: 60 0RF No Action Nurtec ODT 75 mg tablet,disintegrating 75 mg PO ONCE PRN Rx Instructions: as a single dose fenofibrate 160 mg tablet 160 mg PO DAILY Aimovig Autoinjector 70 mg/mL auto-injector 70 mg subcut QMONTH Qty: 1 11RF (DME) syringe (disposable) [BD Luer-Kayla Syringe] 5 mL syringe See Rx Instructions .ROUTE .MEDSUPPLY Qty: 100 0RF Rx Instructions: use with needle for testosterone inject [id number] #2/mo. (DME) blunt needle, disposable 18 x 1 1/2 needle See Rx Instructions .ROUTE .MEDSUPPLY Qty: 100 0RF Rx Instructions: Use one needle to draw up testosterone q 2 weeks. #2/month (DME) BD Eclipse Luer-Kayla 25 gauge x 1 1/2 needle See Rx Instructions .ROUTE .COMPLEX Qty: 6 0RF Dose Instruction: USE ONE NEEDLE TO INJECT TESTOSTERONE EVERY 2 WEEKS #2/MONTH. Rx Instructions: USE ONE NEEDLE TO INJECT TESTOSTERONE EVERY 2 WEEKS #2/MONTH. aripiprazole 5 mg tablet 5 mg PO DAILY pantoprazole 40 mg tablet,delayed release (DR/EC) 40 mg PO DAILY testosterone cypionate 200 mg/mL oil 200 mg IM Q2W Qty: 10 0RF Rx Instructions: multi-use vial hydroxyzine HCl 25 mg tablet 25 mg PO Q6H PRN sertraline 100 mg tablet 100 mg PO DAILY Discharge Instructions Instructions: Tardive dyskinesia Additional Instructions: Please discuss your symptoms with your primary care provider call them tomorrow morning or this afternoon to make an appointment within the next 3 to 5 days. Some of your medications may need to be adjusted. I do suspect that this may be rate reaction between some of your medications. Particularly the neuroleptic medications and antipsychotic or antidepressant medications. No evidence for any problems with the ADULT EDUCATION MANAGER shunt at this time, no evidence for stroke or electrolyte abnormality. Please take the lorazepam as needed for worsening symptoms. Do not operate heavy machinery or drive a car while on these medications as it may make you sleepy. You may also take Benadryl 1 tablet every 6-8 hours as needed if they are bothersome. Referrals: Peter Lebron [Primary Care Provider] - 3 days HPI General Mode of arrival: ambulatory . Date/Time Provider Initiated Documentation: 05/09/24 12:02 . Limitations to Documentation: no limitations . Information obtained by: patient, family, RN notes reviewed and old records reviewed . HPI Narrative: 53-year-old male with a past medical history of hydrocephaly with ADULT EDUCATION MANAGER shunt, seizures memory impairment chronic renal insufficiency cognitive developmental delay exotropia of right eye epilepsy hypertension hyperlipidemia presents to the ER with chief complaint of lip smacking, drooling slurred speech and memory loss over the last 3 to 4 weeks. Family reports that the slurred speech has gotten worse over the last 2 days. He denies any sore throat or trouble swallowing food. He did have a recent change to his antimigraine medication in February and was placed on Nurtec or rimegepant 75 mg disintegrating tablet other than that no recent med changes. Denies any headache, head injuries or falls. He is ANO x 4 and ambulatory here in the department. Patient also reports he had a low-grade 99.9 fever yesterday. Denies any cough. Related Data Home Medications ?Medication ?Instructions ?Recorded ?Confirmed levothyroxine 25 mcg tablet 25 mcg PO DAILY 01/27/19 05/09/24 acetaminophen 500 mg tablet 500 mg PO Q6H PRN PRN pain #60 tabs 10/11/19 05/09/24 ibuprofen 600 mg tablet 600 mg PO Q8H PRN PRN pain #60 tabs 10/11/19 05/09/24 metoprolol succinate 25 mg 25 mg PO DAILY 12/18/21 05/09/24 tablet,extended release 24 hr atorvastatin 10 mg tablet 10 mg PO DAILY 06/04/22 05/09/24 cholecalciferol (vitamin D3) 50 50 mcg PO DAILY 06/04/22 05/09/24 mcg (2,000 unit) capsule erenumab-aooe 70 mg/mL 70 mg subcut QMONTH #1 mL 06/03/23 05/09/24 subcutaneous auto-injector (Aimovig Autoinjector) hydroxyzine HCl 25 mg tablet 25 mg PO Q6H PRN 06/06/23 05/09/24 sertraline 100 mg tablet 100 mg PO DAILY 06/06/23 05/09/24 blunt needle, disposable 18 x 1 #100 ea 08/03/23 05/09/24 1/2 syringe (disposable) 5 mL (BD #100 ea 08/03/23 05/09/24 Luer-Kayla Syringe) safety needles 25 gauge x 1 1/2 #6 ea 12/08/23 05/09/24 (BD Eclipse Luer-Kayla) aripiprazole 5 mg tablet 5 mg PO DAILY 02/15/24 05/09/24 cyanocobalamin (vitamin B-12) 500 1,000 mcg sublingual DAILY 02/15/24 05/09/24 mcg sublingual tablet pantoprazole 40 mg tablet,delayed 40 mg PO DAILY 02/15/24 05/09/24 release topiramate 25 mg capsule,extended 25 mg PO DAILY 02/15/24 05/09/24 release 24 hr testosterone cypionate 200 mg/mL 200 mg IM Q2W #10 mL 03/07/24 05/09/24 intramuscular oil fenofibrate 160 mg tablet 160 mg PO DAILY 03/29/24 05/09/24 rimegepant 75 mg disintegrating 75 mg PO ONCE PRN 03/29/24 05/09/24 tablet (Nurtec ODT) lorazepam 0.5 mg tablet 0.5 mg PO DAILY PRN Lip smacking 05/09/24 #6 tabs Previous Rx's ?Medication ?Instructions ?Recorded acetaminophen 500 mg tablet 500 mg PO Q6H PRN PRN pain #60 tabs 10/11/19 ibuprofen 600 mg tablet 600 mg PO Q8H PRN PRN pain #60 tabs 10/11/19 erenumab-aooe 70 mg/mL 70 mg subcut QMONTH #1 mL 06/03/23 subcutaneous auto-injector (Aimovig Autoinjector) blunt needle, disposable 18 x 1 #100 ea 08/03/23 1/2 syringe (disposable) 5 mL (BD #100 ea 08/03/23 Luer-Kayla Syringe) safety needles 25 gauge x 1 1/2 #6 ea 12/08/23 (BD Eclipse Luer-Kayla) testosterone cypionate 200 mg/mL 200 mg IM Q2W #10 mL 03/07/24 intramuscular oil lorazepam 0.5 mg tablet 0.5 mg PO DAILY PRN Lip smacking 05/09/24 #6 tabs Allergies Allergy/AdvReac Type Severity Reaction Status Date / Time Penicillins Allergy Severe Anaphylaxsis, Verified 05/09/24 12:14 RASH vancomycin Allergy Severe Skin Rash Verified 05/09/24 12:14 latex Allergy Intermediate hives with Verified 05/09/24 12:14 latex powdered gloves General Stated Complaint: CVA/TIA GLO: 3 Review of Systems Neurologic Neurologic: Reports abnormal movements and Reports abnormal speech Exam Narrative Exam Narrative: Constitutional: Alert and oriented x3. Appears stated age. Normal body habitus. Head: Does have some scars noted. In the posterior scalp. No trauma. Eyes: Pupils PERRL, Eyelids symmetrical without lesions, discharge, or swelling. Exotropia into the right eye. ENT: Bilateral TM's WNL, External ear normal to inspection, no mastoid TTP, swelling, or erythema, Nasal turbinates WNL, no nasal discharge. Normal dentition, Posterior pharynx WNL, no exudate. Patient does have continuous lipsmacking on exam, no drooling noted. No stridor. Patient is speaking in full sentences able to handle secretions without difficulty. Chest: RRR, Normal S1, S2, distal pulses intact. Resp: Lungs clear to auscultation bilaterally, no wheezes, rales, or rhonchi. Abdomen: Soft, non-distended, Normoactive bowel sounds all 4 quads. Musculoskeletal: Normal gait, Moves all 4 extremities without difficulty. Skin: No suspicious rashes or lesions. Capillary refill less than 2 sec. Neurologic: Cranial nerves II-XII intact. Alert and oriented x 3. Motor: No acute focal neuro deficits noted. Sensory: Intact bilaterally all 4 extremities. Does appear to be at baseline. Hematologic/Lymphatic: No ecchymosis, no lymphadenopathy. Course Vital Signs Vital signs: Vital Signs Temperature 36.4 C L 05/09/24 12:06 Pulse 75 05/09/24 12:06 Respiratory Rate 15 05/09/24 12:06 Blood Pressure 126/83 05/09/24 12:06 Pulse Oximetry 98 05/09/24 12:06 Temperature 36.4 C L 05/09/24 12:06 Pulse 75 05/09/24 12:06 Respiratory Rate 15 05/09/24 12:06 Blood Pressure 126/83 05/09/24 12:06 Blood Pressure Position Sitting 05/09/24 12:06 Pulse Oximetry 98 05/09/24 12:06 Oxygen Delivery Method Room Air 05/09/24 12:06 Oxygen Flow Rate 0 05/09/24 12:06 Medical Decision Making 53-year-old male with a past medical history of hydrocephaly with ADULT EDUCATION MANAGER shunt, seizures memory impairment chronic renal insufficiency cognitive developmental delay exotropia of right eye epilepsy hypertension hyperlipidemia presents to the ER with chief complaint of lip smacking, drooling slurred speech and memory loss over the last 3 to 4 weeks. Family reports that the slurred speech has gotten worse over the last 2 days. He denies any sore throat or trouble swallowing food. He did have a recent change to his antimigraine medication in February and was placed on Nurtec or rimegepant 75 mg disintegrating tablet other than that no recent med changes. Denies any headache, head injuries or falls. He is ANO x 4 and ambulatory here in the department. Patient also reports he had a low-grade 99.9 fever yesterday. Denies any cough. Patient does appear to have some extrapyramidal effects which are oral in nature, lip smacking. CVA or TIA is less likely on the differential however with his history we will go ahead and order head CT. I am questioning his new medication changes. Will check labs for electrolyte disturbances, UTI and a Fluvid swab. Workup is largely unremarkable. I do suspect extraparametal symptoms or tar dive dyskinesia due to the lipsmacking and drooling which is new. . Will give him 1.5 of lorazepam and 12-1/2 of Benadryl to see if this helps with symptoms. Will strongly encourage close follow-up with his prescribing provider his PCP who prescribes his Abilify and sertraline. Of note is this may be a medication reaction with his new migraine medication called [facility]. CBC shows white blood cell count of 10.2, no leukocytosis no left shift, anion gap 11.8 BUN/creatinine within normal limits. Alk phos 214 2 serial troponins negative less than 4, urinalysis shows no evidence for UTI or leukocytosis. Negative for COVID flu and RSV. On reevaluation symptoms are still present I did discuss that this may take a little while for it to resolve or may require adjustment of his medications given his family verbalized understanding. This text was generated using Butlr dictation system, please disregard any oddities of phrase or misspellings. Medical Records Medical records reviewed: Yes I reviewed the patient's medical records. Imaging Data Radiologic Study: Imaging: CT Scan Radiologist's impression: COMPARISON: No exams were available for comparison FINDINGS: Ventricles and Extra axial spaces: Previously noted right-sided ventricular peritoneal shunt has been removed. There is a new ventriculoperitoneal shunt entering from the left parietal region and sending to the midline and terminating in the 3rd ventricle. Hemorrhage: None. Cerebral parenchyma: No evidence of acute infarct or mass. There is a small area of encephalomalacia in the right frontal lobe related to the previous shunt. Midline shift: None. Brainstem/Cerebellum: Normal. Calvarium: Bony defects related to ventriculoperitoneal shunt in both frontal bones and bilateral parietal bones. Visualized Paranasal sinuses:Clear. Mastoids: Clear. Soft Tissues: Unremarkable. ORBITS: Unremarkable. PITUITARY: Not enlarged. IMPRESSION: No acute intracranial process. Removal of previously noted right-sided ADULT EDUCATION MANAGER shunt and interval placement of left- sided ADULT EDUCATION MANAGER shunt. No change in distal ventricular size or configuration. Lab Data Lab results reviewed: Yes I reviewed the patient's lab results. Labs: Laboratory Tests Range/Units 05/09/24 05/09/24 05/09/24 12:29 13:10 15:15 WBC (4.4-10.8) 10^3/uL 10.21 RBC (4.36-5.78) 10^6/uL 5.49 Hgb (13.5-17.5) g/dL 16.2 Hct (40.0-50.0) % 47.3 MCV (80-95) fL 86 MCH (27.0-33.0) pg 29.5 MCHC (32.0-36.0) % 34.2 RDW (11.8-14.1) % 12.9 Plt Count (130-400) 10^3/uL 259 MPV (8.0-11.0) fL 9.4 Immature Gran % % 0.3 Neutrophils % % 61.7 Lymphocytes % % 30.3 Monocytes % % 6.2 Eosinophils % % 0.9 Basophils % % 0.6 Nucleated RBC % (0.0-0.3) % 0.0 Absolute Neutrophils (1.2-6.7) 10^3/uL 6.31 Absolute Lymphocytes (1.2-3.4) 10^3/uL 3.09 Absolute Monocytes (0.1-0.8) 10^3/uL 0.63 Absolute Eosinophils (0.0-0.7) 10^3/uL 0.09 Absolute Basophils (0.0-0.2) 10^3/uL 0.06 PT (9.1-11.1) sec 10.8 INR (0.9-1.1) 1.1 Sodium (136-145) mmol/L 141 Potassium (3.5-5.1) mmol/L 3.9 Chloride (98-107) mmol/L 106 Carbon Dioxide (21.0-32.0) mmol/L 23.2 Anion Gap (3-11) mmol/L 11.8 H BUN (7-18) mg/dL 15 Creatinine (0.70-1.30) mg/dL 1.3 Est GFR (CKD-EPI 2020) (mL/min/1.73m2) 66.51 Glucose (74-106) mg/dL 90 Calcium (8.5-10.1) mg/dL 9.4 Magnesium mg/dL 2.1 Total Bilirubin (0.2-1.0) mg/dL 0.8 AST (15-37) U/L 11 L ALT (16-63) U/L 23 Alkaline Phosphatase (46-116) U/L 214 H Troponin I (<or=76) ng/L 6 < 4 Cancelled Total Protein (6.4-8.2) g/dL 8.1 Albumin (3.4-5.0) g/dL 4.0 Quality:SDOH Health Related Social Needs: No Data to Display PFSH All Active Problems (Updated 05/09/24 @ 14:43 by Caro Friedman NP) Tardive dyskinesia (Acute) Extrapyramidal reaction (Acute) Spell of abnormal behavior (Acute) Tremor (Acute) Migraine headache without aura (Acute) Status migrainosus (Acute) Sessile serrated polyp of colon (Acute ~05/06/22) Internal derangement of right knee (Acute) Mild cognitive impairment (Acute) Vertigo (Acute) Odontalgia (Acute) Right ankle sprain (Acute) Suicidal ideation (Acute) Major depression (Chronic) Depression (Chronic) Right carpal tunnel syndrome (Acute) Migraine headache with aura (Acute) Ulnar neuropathy of right upper extremity (Acute) Carpal tunnel syndrome on both sides (Acute) Peripheral neuropathy (Acute) Acute stress reaction (Acute) Premature ejaculation (Acute) Hypogonadism in male (Acute) Gastritis (Acute) Esophagitis (Acute) Colorectal polyp detected on colonoscopy (Acute) Tubular adenoma in 2021 Abdominal pain (Acute) Current visit - YES Arthritis of right acromioclavicular joint (Acute 11/05/16) Chronic headaches (Acute) Medical History Hearing loss Hydrocephalus associated with congenital aqueduct stenosis Memory impairment Seizures pt. states last seizures was when he was a kid Persistent headaches CRI (chronic renal insufficiency) Cognitive developmental delay Pseudoseizures Hypogonadism Exotropia of right eye congenital Asymptomatic microscopic hematuria Tubular adenoma of colon History of head injury Per pt. 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 is patent Surgical History History of colonoscopy with polypectomy (~05/06/22) Hx of shoulder surgery Hx of colonoscopy (~10/2021) S/P carpal tunnel release right S/P cholecystectomy Intracranial shunt with several revisions Per pt. is patent Social History Smoking/Tobacco Use Status: Never Smoking risk assessment performed?: Yes Alcohol Intake: never Drug use: Never Substance use type: does not use Household members: spouse and children Number of Children: 3 current occupation: [employer] Current gender identity: male What is your relationship status?: Panel score (0-1 are the most socially isolated patients): 1 Seatbelt use: always Do you feel safe at home: Yes Do you feel safe in your relationship?: Yes
[2024-05-09 12:36] LABS: Abs Immature Grans 0.03 10^3/uL (0.0-0.06); Absolute Basophil Count 0.06 10^3/uL (0.0-0.2); Absolute Eosinophil Count 0.09 10^3/uL (0.0-0.7); Absolute Lymphocyte Count 3.09 10^3/uL (1.2-3.4); Absolute Monocyte Count 0.63 10^3/uL (0.1-0.8); Absolute Neutrophil Count 6.31 10^3/uL (1.2-6.7); Basophils % 0.6 %; Eosinophils % 0.9 %; HCT 47.3 % (40.0-50.0); HGB 16.2 g/dL (13.5-17.5); Immature Grans % 0.3 %; Lymphocytes % 30.3 %; MCH 29.5 pg (27.0-33.0); MCHC 34.2 % (32.0-36.0); MCV 86 fL (80-95); MPV 9.4 fL (8.0-11.0); Monocytes % 6.2 %; Neutrophils % 61.7 %; Platelet Count 259 10^3/uL (130-400); RBC 5.49 10^6/uL (4.36-5.78); RDW 12.9 % (11.8-14.1); RDW-SD 40.3 fL; WBC 10.21 10^3/uL (4.4-10.8)
[2024-05-09 12:46] LABS: INR 1.1 (0.9-1.1); Prothrombin Time 10.8 sec (9.1-11.1)
[2024-05-09 12:56] LABS: ALT 23 U/L (16-63); AST 11 U/L (15-37); Alkaline Phosphatase 214 U/L (46-116); Anion Gap 11.8 mmol/L (3-11); BUN 15 mg/dL (7-18); Bilirubin, Total 0.8 mg/dL (0.2-1.0); CO2 23.2 mmol/L (21.0-32.0); CREATININE 1.3 mg/dL (0.70-1.30); Calcium 9.4 mg/dL (8.5-10.1); Chloride 106 mmol/L (98-107); Estimated GFR 66.51 (mL/min/1.73m2); Glucose 90 mg/dL (74-106); Magnesium 2.1 mg/dL; Potassium 3.9 mmol/L (3.5-5.1); Sodium 141 mmol/L (136-145); Total Protein 8.1 g/dL (6.4-8.2); Troponin I 6 ng/L (<or=76)
[2024-05-09 13:41] LABS: Troponin I < 4 ng/L (<or=76)
[2024-05-09 14:07] LABS: COVID-19 PCR Negative (Negative); Influenza A PCR Negative (Negative); Influenza B PCR Negative (Negative); RSV PCR Negative (Negative)
[2024-05-09 14:08] LABS: Source Nasopharynx
[2024-05-09] MEDS: LORazepam 0.5 MG TAB PO (14:29)
[2024-05-09 14:30] LABS: Bilirubin Negative (Negative); Blood Negative (Negative); Clarity Clear (Clear); Glucose Negative (Negative); Ketones Negative (Negative); Leukocyte Esterase Negative (Negative); Nitrite Negative (Negative); Specific Gravity >= 1.030 (1.005-1.025); Urobilinogen 0.2 mg/dL (Up to 0.2)
== END 2024-05-09 15:22 | disposition home or self-care (01) ==
PROVIDERS: Emergency Provider Registered Nurse Emergency; PCP Physician Assistant
DX: G25.9 Extrapyramidal and movement disorder, unspecified (principal); G24.01 Drug induced subacute dyskinesia; Z98.2 Presence of cerebrospinal fluid drainage device
CPT/HCPCS: 36416; 80053; 82962; 87637; 93005; 99284; 70450; 81003; 83735; 84484; 85025; 85610; 93010

== ENCOUNTER → 2024-05-13 08:28 | Outpatient (BNVA) | payer MEDICARE, MEDICAID, SELFPAY | PROVIDERS: PCP Physician Assistant; Referring Provider Physician Assistant; Visit Provider Psychiatry & Neurology Neurology ==

== ENCOUNTER 2024-05-19 17:01 | Emergency (ER) | payer MEDICARE, MEDICAID, SELFPAY ==
[2024-05-19 17:10] VITALS: BP 127/86; PULSE 78; RESP 16; TEMP 37.1; O2SAT 98
--- NOTE | 2024-05-19 17:15 | DI.RAD_ITS ---
Exam(s) XR SHUNT SERIES EXAM: XR SHUNT SERIES CLINICAL HISTORY: hydrocephalus; dizziness. TECHNIQUE: 2D digital imaging was performed. COMPARISON: CR XR SHUNT SERIES from 12/04/2022 CR,XR XR SHUNT SERIES from 06/06/[address] CHEST/ABD/PEL W from 07/27/[address] HEAD WO from 05/09/2024 Findings: SKULL: Multiple gala holes noted. Right temporal craniotomy. No evidence of fracture. LUNGS: Clear. No pleural abnormality seen. HEART: Normal. MEDIASTINUM: Normal. BOWEL GAS PATTERN: Nondistended bowel loops. No air-fluid levels seen. ABNORMAL COLLECTIONS OF AIR: No abnormal collection of air. No pneumoperitoneum. CALCIFICATIONS: None. No radiopaque renal, ureteral, or bladder calcification. Right upper quadrant surgical clips. SHUNT CATHETER: Visualized portions of the left shunt catheter from the level of the skull to the lev el of the abdomen is continuous without evidence of kink or break. The distal end of the catheter is in the left upper quadrant. Portions of the previously existing right ventricular peritoneal shunt remain in place in the neck, chest and upper abdomen. IMPRESSION: 1. The left-sided ventriculoperitoneal shunt appears intact. 2. No acute chest, abdominal, or pelvic findings. DATA REPOSITORY: RADIATION DOSE DELIVERED:
--- NOTE | 2024-05-19 17:24 | ED.GENADUL_ITS ---
Discharge Plan Disposition Patient Disposition: Home Condition: Stable Discharge Details Clinical Impression: Dizziness of unknown cause Primary Care Provider: Peter Lebron ED Provider: Andrew Duff Home Meds and New Rx's Prescriptions: Continued atorvastatin 10 mg tablet 10 mg PO DAILY cholecalciferol (vitamin D3) 50 mcg (2,000 unit) capsule 50 mcg PO DAILY Nurtec ODT 75 mg tablet,disintegrating 75 mg PO ONCE PRN Rx Instructions: as a single dose fenofibrate 160 mg tablet 160 mg PO DAILY Aimovig Autoinjector 70 mg/mL auto-injector 70 mg subcut QMONTH Qty: 1 11RF (DME) syringe (disposable) [BD Luer-Kayla Syringe] 5 mL syringe See Rx Instructions .ROUTE .MEDSUPPLY Qty: 100 0RF Rx Instructions: use with needle for testosterone inject [id number] #2/mo. (DME) blunt needle, disposable 18 x 1 1/2 needle See Rx Instructions .ROUTE .MEDSUPPLY Qty: 100 0RF Rx Instructions: Use one needle to draw up testosterone q 2 weeks. #2/month metoprolol succinate 25 mg tablet extended release 24 hr 25 mg PO DAILY (DME) BD Eclipse Luer-Kayla 25 gauge x 1 1/2 needle See Rx Instructions .ROUTE .COMPLEX Qty: 6 0RF Dose Instruction: USE ONE NEEDLE TO INJECT TESTOSTERONE EVERY 2 WEEKS #2/MONTH. Rx Instructions: USE ONE NEEDLE TO INJECT TESTOSTERONE EVERY 2 WEEKS #2/MONTH. aripiprazole 5 mg tablet 5 mg PO DAILY pantoprazole 40 mg tablet,delayed release (DR/EC) 40 mg PO DAILY topiramate 25 mg capsule,extended release 24hr 25 mg PO DAILY cyanocobalamin (vitamin B-12) 500 mcg tablet, sublingual 1,000 mcg sublingual DAILY testosterone cypionate 200 mg/mL oil 200 mg IM Q2W Qty: 10 0RF Rx Instructions: multi-use vial levothyroxine 25 mcg tablet 25 mcg PO DAILY acetaminophen 500 mg tablet 500 mg PO Q6H PRN PRN (Reason: pain) Qty: 60 3RF ibuprofen 600 mg tablet 600 mg PO Q8H PRN PRN (Reason: pain) Qty: 60 0RF hydroxyzine HCl 25 mg tablet 25 mg PO Q6H PRN sertraline 100 mg tablet 100 mg PO DAILY Discontinued clonazepam 0.5 mg tablet 0.5 mg PO TID Discharge Instructions Instructions: Dizziness, Adult ED Additional Instructions: You were seen in the emergency department for your dizziness, possible tardive dyskinesia and speech difficulty, there is no evidence of any increased intracranial pressure on all studies today, no evidence of toxic or infectious encephalopathy, this is likely due to side effects of medications, the neurologist recommend that you stop your clonazepam and make sure all unsteadiness and dizziness resolved before starting any other drugs for tardive dyskinesia, they also recommend a psychiatry visit, please follow-up with your outpatient neurologist and return for any emergent concerns or negative changes. Referrals: Peter Lebron [Primary Care Provider] - Discharge Data Discharge Date/Time-TO BE ENTERED AT DEPARTURE: 05/19/24 22:58 HPI General Date/Time Provider Initiated Documentation: 05/19/24 17:03 . HPI Narrative: 53 year-old male presents to ED today by POV/ambulating with a chief complaint of increasing dizziness, slurred speech, memory issues with onset over the past couple days. [place] [facility] [place] Quality described as generalized confusion,some involuntary mouth movements diagnosed previously as tardive dyskinesia with recent med changes , no radiation to coordination difficulty beyond baseline, severe headache, vision changes, chest pain, shortness of breath, fever, neck stiffness. Severity is described as mild to moderate. Palliating factors include nothing specific. Provoking factors include nothing specific. Events leading up to the incident/Associated Symptoms: Patient has been taking clonazepam which is a recent addition of his medicines. Patient not anticoagulated. Related Data Home Medications ?Medication ?Instructions ?Recorded ?Confirmed levothyroxine 25 mcg tablet 25 mcg PO DAILY 01/27/19 05/19/24 acetaminophen 500 mg tablet 500 mg PO Q6H PRN PRN pain #60 tabs 10/11/19 05/19/24 ibuprofen 600 mg tablet 600 mg PO Q8H PRN PRN pain #60 tabs 10/11/19 05/19/24 metoprolol succinate 25 mg 25 mg PO DAILY 12/18/21 05/19/24 tablet,extended release 24 hr atorvastatin 10 mg tablet 10 mg PO DAILY 06/04/22 05/19/24 cholecalciferol (vitamin D3) 50 50 mcg PO DAILY 06/04/22 05/19/24 mcg (2,000 unit) capsule erenumab-aooe 70 mg/mL 70 mg subcut QMONTH #1 mL 06/03/23 05/19/24 subcutaneous auto-injector (Aimovig Autoinjector) hydroxyzine HCl 25 mg tablet 25 mg PO Q6H PRN 06/06/23 05/19/24 sertraline 100 mg tablet 100 mg PO DAILY 06/06/23 05/19/24 blunt needle, disposable 18 x 1 #100 ea 08/03/23 05/19/24 1/2 syringe (disposable) 5 mL (BD #100 ea 08/03/23 05/19/24 Luer-Kayla Syringe) safety needles 25 gauge x 1 1/2 #6 ea 12/08/23 05/19/24 (BD Eclipse Luer-Kayla) aripiprazole 5 mg tablet 5 mg PO DAILY 02/15/24 05/19/24 cyanocobalamin (vitamin B-12) 500 1,000 mcg sublingual DAILY 02/15/24 05/19/24 mcg sublingual tablet pantoprazole 40 mg tablet,delayed 40 mg PO DAILY 02/15/24 05/19/24 release topiramate 25 mg capsule,extended 25 mg PO DAILY 02/15/24 05/19/24 release 24 hr testosterone cypionate 200 mg/mL 200 mg IM Q2W #10 mL 03/07/24 05/19/24 intramuscular oil fenofibrate 160 mg tablet 160 mg PO DAILY 03/29/24 05/19/24 rimegepant 75 mg disintegrating 75 mg PO ONCE PRN 03/29/24 05/19/24 tablet (Nurtec ODT) Previous Rx's ?Medication ?Instructions ?Recorded acetaminophen 500 mg tablet 500 mg PO Q6H PRN PRN pain #60 tabs 10/11/19 ibuprofen 600 mg tablet 600 mg PO Q8H PRN PRN pain #60 tabs 10/11/19 erenumab-aooe 70 mg/mL 70 mg subcut QMONTH #1 mL 06/03/23 subcutaneous auto-injector (Aimovig Autoinjector) blunt needle, disposable 18 x 1 #100 ea 08/03/23 12 syringe (disposable) 5 mL (BD #100 ea 08/03/23 Luer-Kayla Syringe) safety needles 25 gauge x 1 1/2 #6 ea 12/08/23 (BD Eclipse Luer-Kayla) testosterone cypionate 200 mg/mL 200 mg IM Q2W #10 mL 03/07/24 intramuscular oil Allergies Allergy/AdvReac Type Severity Reaction Status Date / Time Penicillins Allergy Severe Anaphylaxsis, Verified 05/19/24 17:12 RASH vancomycin Allergy Severe Skin Rash Verified 05/19/24 17:12 latex Allergy Intermediate hives with Verified 05/19/24 17:12 latex powdered gloves General Stated Complaint: Dizzy/Sync GLO: 3 Review of Systems All systems reviewed & are unremarkable except as noted in HPI and below Exam Narrative Exam Narrative: GENERAL APPEARANCE: Well-nourished, non-toxic, awake and alert, atraumatic, no acute distress. SKIN: Warm, pink, dry, intact, without rashes/lesions/ulcerations. HEAD: Normocephalic, atraumatic, normal hair distribution for gender/age. EYES: Normal conjunctiva, no exudates on lids/lashes. ENT: Nares patent, no circumoral cyanosis, no facial swelling NECK: Supple, trachea midline, painless cervical ROM. LUNGS/CHEST: Lungs CTA bilaterally, non-labored respirations, normal A/P diameter, symmetrical expansion, no chest wall deformity HEART (CV/PV): Regular rate and rhythm without murmur, no peripheral edema, no JVD. ABDOMEN: Soft, non-distended, no guarding. MSK: Normal ROM, no swelling/deformity to bilateral UEs or LEs, moving all extremities without weakness, no cyanosis, spine midline without tenderness, normal curvature. NEURO: Mental Status AAOx4 - alert to person, place, time, events No facial droop, no forehead involvement, involuntary rhythmic movement of mouth and tongue Motor: No focal weakness - strength 5/5 in bilateral UEs and LEs, proximal and distal, symmetric. Sensory: sensation intact to light touch globally. Gait normal: patient ambulated without ataxia into ED room. PSYCH: euthymic, cooperative, pleasant, appropriate speech Course Vital Signs Vital signs: Vital Signs Temperature 37.1 C 05/19/24 17:10 Pulse 78 05/19/24 17:10 Respiratory Rate 16 05/19/24 17:10 Blood Pressure 127/86 05/19/24 17:10 Pulse Oximetry 98 05/19/24 17:10 Temperature 37.1 C 05/19/24 17:10 Pulse 78 05/19/24 17:10 Respiratory Rate 16 05/19/24 17:10 Blood Pressure 127/86 05/19/24 17:10 Pulse Oximetry 98 05/19/24 17:10 Oxygen Delivery Method Room Air 05/19/24 17:10 Oxygen Flow Rate 0 05/19/24 17:10 Pain Level 3 05/19/24 17:10 Medical Decision Making This dictation utilizes [id number] dictation software and may contain unedited grammatical errors. 53 year-old male presents to ED today by POV/ambulating with a chief complaint of increasing dizziness, slurred speech, memory issues with onset over the past couple days. Patient [place] [facility] [place]. Quality described as generalized confusion,some involuntary mouth movements diagnosed previously as tardive dyskinesia with recent med changes , no radiation to coordination difficulty beyond baseline, severe headache, vision changes, chest pain, shortness of breath, fever, neck stiffness. Severity is described as mild to moderate. Palliating factors include nothing specific. Provoking factors include nothing specific. Events leading up to the incident/Associated Symptoms: Patient has been taking clonazepam which is a recent addition of his medicines. Patients' medical history: Hydrocephalus, memory impairment, seizure activity, epilepsy, hypertension, extrapyramidal reaction, tardive dyskinesia. Family and social history: Good family supports, eats healthy diet, no drugs or alcohol. Pertinent exam findings / vital signs include involuntary movements of mouth, otherwise mentating normally with no motor deficits, no dysmetria, nontoxic and afebrile. Differential / pathologies of concern include medication reaction, tardive dyskinesia, unlikely stroke, possible increased intracranial pressure, shunt malfunction, less likely infectious cause of encephalopathy Diagnostic studies of: -XR shunt series, CTA head and neck, CBC, CMP, lactate, troponin, TSH. -XR shunt series benign -CTA brain and neck shows no stroke, no increased size of ventricles -CBC shows no evidence of infection, CMP is negative, troponin negative, TSH wi thin normal limits, lactate negative Interventions of: -Teleneurology consult. ED Course/Assessment/Plan: 53-year-old male with history of ventricular shunt for hydrocephalus [place] [facility] [place] with increasing confusion and memory issues, recent addition of clonazepam to his medications for possible tardive dyskinesia, I do not feel there is any stroke or infectious encephalopathic etiology with negative blood work and imaging studies, no increased size of ventricles to suggest increasing intracranial pressure. Spoke with neurologist from [facility] Dr. Mykel Bonilla, recommend stopping Klonopin to make sure unsteadiness resolves before any further drug changes, and care management team work on a referral to see a psychiatrist at neurology's recommendation, strict return criteria for any negative changes or worsening. Family neurologist suggest the patient receive a psychiatry consult for tardive dyskinesia management and I did process a care management referral. Findings not consistent with increasing ICP, infectious encephalopathy, stroke. Disposition of dizziness of unknown cause. Patient verbalized understanding of the plan and return to ED criteria and engaged in shared decision making. Medical Records Medical records reviewed: Yes I reviewed the patient's medical records. Imaging Data Radiologic Study: Attestation: I personally reviewed and interpreted this imaging study as follows: Imaging: X-Ray Radiologist's impression: EXAM: XR SHUNT SERIES CLINICAL HISTORY: hydrocephalus; dizziness. TECHNIQUE: 2D digital imaging was performed. COMPARISON: CR XR SHUNT SERIES from 12/04/2022 CR,XR XR SHUNT SERIES from 06/06/[address] CHEST/ABD/PEL W from 07/27/[address] HEAD WO from 05/09/2024 Findings: SKULL: Multiple gala holes noted. Right temporal craniotomy. No evidence of fracture. LUNGS: Clear. No pleural abnormality seen. HEART: Normal. MEDIASTINUM: Normal. BOWEL GAS PATTERN: Nondistended bowel loops. No air-fluid levels seen. ABNORMAL COLLECTIONS OF AIR: No abnormal collection of air. No pneumoperitoneum. CALCIFICATIONS: None. No radiopaque renal, ureteral, or bladder calcification. Right upper quadrant surgical clips. SHUNT CATHETER: Visualized portions of the left shunt catheter from the level of the skull to the level of the abdomen is continuous without evidence of kink or break. The distal end of the catheter is in the left upper quadrant. Portions of the previously existing right ventricular peritoneal shunt remain in place in the neck, chest and upper abdomen. IMPRESSION: 1. The left-sided ventriculoperitoneal shunt appears intact. 2. No acute chest, abdominal, or pelvic findings. Radiologic Study #2: Attestation: I personally reviewed and interpreted this imaging study as follows: Imaging: CT Scan Radiologist's impression: EXAM: CT BRAIN NECK CTA CLINICAL HISTORY: hydrocephalus, dizziness, confusion. TECHNIQUE: Imaging Protocol: Axial CT angiography was performed with multi- slice acquisition and multi-planar and MIP reconstructions. CONTRAST MATERIAL: Intravenous: Omnipaque 350 Contrast volume:70 ml COMPARISON: CT CT HEAD CERVICAL SPINE WO from 02/26/[address] HEAD WO from 05/09/2024 FINDINGS: CT Head W/O and W contrast: Ventricles and Extra axial spaces: No ventricular dilatation. Stable appearance from from prior exam. Hemorrhage: None. Cerebral parenchyma: No evidence of acute infarct or mass. Stable area of right frontal encephalomalacia. Midline shift: None. Brainstem/Cerebellum: No acute findings.. Calvarium: Left-sided ventriculoperitoneal shunt entering from the left parietal skull and terminating in the 3rd ventricle. Bilateral frontal gala holes. Right temporal craniotomy. Visualized Paranasal sinuses/Mastoids: Clear. Soft Tissues: Unremarkable. Enhancement: Normal. CTA Brain W: Internal Carotid Arteries: Petrous: Normal. Cavernous: Normal. Cerebral: Normal. Middle Cerebral Arteries: Right: No aneurysm, occlusion or significant stenosis. Left: No aneurysm, occlusion or significant stenosis. Anterior Cerebral Arteries: Right: No aneurysm, occlusion or significant stenosis. Left: No aneurysm, occlusion or significant stenosis. Posterior cerebral Arteries: Right: No aneurysm, occlusion or significant stenosis. Left: No aneurysm, occlusion or significant stenosis. Vertebral Arteries: Right: No aneurysm, occlusion or significant stenosis. Left: No aneurysm, occlusion or significant stenosis. Basilar Artery: No aneurysm, occlusion or significant stenosis. CTA Neck W: Common Carotid: Right: No dissection, occlusion or significant stenosis. Left: No dissection, occlusion or significant stenosis. External Carotid: Right: No dissection, occlusion or significant stenosis. Left: No dissection, occlusion or significant stenosis. Internal Carotid: Right: No dissection, occlusion or significant stenosis. Left: No dissection, occlusion or significant stenosis. Vertebral Artery: Right: No dissection, occlusion or significant stenosis. Left: No dissection, occlusion or significant stenosis. Lung Apices: No acute findings. Bones: No acute abnormality. Soft Tissues: Normal. IMPRESSION: 1. CTA brain: Normal CTA examination of the [place]. 2. Head CT: Stable appearance of the ventricles. Stable appearance of left ventricular shunt. No acute abnormality. 3. CTA neck: Normal CTA examination of the neck. No evidence of atherosclerotic disease. No evidence of vascular occlusion or dissection. Lab Data Lab results reviewed: Yes I reviewed the patient's lab results. Labs: Laboratory Tests Range/Units 05/19/24 17:45 WBC (4.4-10.8) 10^3/uL 9.23 RBC (4.36-5.78) 10^6/uL 5.32 Hgb (13.5-17.5) g/dL 15.6 Hct (40.0-50.0) % 45.9 MCV (80-95) fL 86 MCH (27.0-33.0) pg 29.3 MCHC (32.0-36.0) % 34.0 RDW (11.8-14.1) % 12.9 Plt Count (130-400) 10^3/uL 214 MPV (8.0-11.0) fL 8.9 Immature Gran % % 0.2 Neutrophils % % 60.0 Lymphocytes % % 32.3 Monocytes % % 5.6 Eosinophils % % 1.1 Basophils % % 0.8 Nucleated RBC % (0.0-0.3) % 0.0 Absolute Neutrophils (1.2-6.7) 10^3/uL 5.54 Absolute Lymphocytes (1.2-3.4) 10^3/uL 2.98 Absolute Monocytes (0.1-0.8) 10^3/uL 0.52 Absolute Eosinophils (0.0-0.7) 10^3/uL 0.10 Absolute Basophils (0.0-0.2) 10^3/uL 0.07 VBG Lactate (<or=2.0) mmol/L 1.3 Sodium (136-145) mmol/L 142 Potassium (3.5-5.1) mmol/L 4.0 Chloride (98-107) mmol/L 105 Carbon Dioxide (21.0-32.0) mmol/L 26.5 Anion Gap (3-11) mmol/L 10.5 BUN (7-18) mg/dL 17 Creatinine (0.70-1.30) mg/dL 1.2 Est GFR (CKD-EPI 2020) (mL/min/1.73m2) 73.22 Glucose (74-106) mg/dL 96 Calcium (8.5-10.1) mg/dL 9.5 Magnesium mg/dL 2.2 Total Bilirubin (0.2-1.0) mg/dL 0.5 AST (15-37) U/L 13 L ALT (16-63) U/L 22 Alkaline Phosphatase (46-116) U/L 145 H Ammonia (11-32) umol/L < 10 L Troponin I (<or=76) ng/L < 4 Total Protein (6.4-8.2) g/dL 7.9 Albumin (3.4-5.0) g/dL 4.0 TSH (0.36-3.74) uIU/mL 1.85 Quality:[facility] Health Related Social Needs: No Data to Display PFSH All Active Problems (Updated 05/19/24 @ 20:52 by MARVA Holguin) Dizziness of unknown cause (Acute) Tardive dyskinesia (Acute) Extrapyramidal reaction (Acute) Spell of abnormal behavior (Acute) Tremor (Acute) Migraine headache without aura (Acute) Status migrainosus (Acute) Sessile serrated polyp of colon (Acute ~05/06/22) Internal derangement of right knee (Acute) Mild cognitive impairment (Acute) Vertigo (Acute) Odontalgia (Acute) Right ankle sprain (Acute) Suicidal ideation (Acute) Major depression (Chronic) Depression (Chronic) Right carpal tunnel syndrome (Acute) Migraine headache with aura (Acute) Ulnar neuropathy of right upper extremity (Acute) Carpal tunnel syndrome on both sides (Acute) Peripheral neuropathy (Acute) Acute stress reaction (Acute) Premature ejaculation (Acute) Hypogonadism in male (Acute) Gastritis (Acute) Esophagitis (Acute) Colorectal polyp detected on colonoscopy (Acute) Tubular adenoma in 2021 Abdominal pain (Acute) Current visit - YES Arthritis of right acromioclavicular joint (Acute 11/05/16) Chronic headaches (Acute) Medical History Hearing loss Hydrocephalus associated with congenital aqueduct stenosis Memory impairment Seizures pt. states last seizures was when he was a kid Persistent headaches CRI (chronic renal insufficiency) Cognitive developmental delay Pseudoseizures Hypogonadism Exotropia of right eye congenital Asymptomatic microscopic hematuria Tubular adenoma of colon History of head injury Per pt. 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 is patent Surgical History History of colonoscopy with polypectomy (~05/06/22) Hx of shoulder surgery Hx of colonoscopy (~10/2021) S/P carpal tunnel release right S/P cholecystectomy Intracranial shunt with several revisions Per pt. is patent Social History Smoking/Tobacco Use Status: Never Smoking risk assessment performed?: Yes Alcohol Intake: never Drug use: Never Substance use type: does not use Household members: spouse and children Number of Children: 3 current occupation: [employer] Current gender identity: male What is your relationship status?: Panel score (0-1 are the most socially isolated patients): 1 Seatbelt use: always Do you feel safe at home: Yes Do you feel safe in your relationship?: Yes
--- NOTE | 2024-05-19 17:25 | DI.CT_ITS ---
Exam(s) CT BRAIN NECK CTA EXAM: CT BRAIN NECK CTA CLINICAL HISTORY: hydrocephalus, dizziness, confusion. TECHNIQUE: Imaging Protocol: Axial CT angiography was performed with multi-slice acquisition and mu lti-planar and MIP reconstructions. CONTRAST MATERIAL: Intravenous: Omnipaque 350 Contrast volume:70 ml COMPARISON: CT CT HEAD CERVICAL SPINE WO from 02/26/[address] HEAD WO from 05/09/2024 FINDINGS: CT Head W/O and W contrast: Ventricles and Extra axial spaces: No ventricular dilatation. Stable appearance from from prior exam . Hemorrhage: None. Cerebral parenchyma: No evidence of acute infarct or mass. Stable area of right frontal encephalomal acia. Midline shift: None. Brainstem/Cerebellum: No acute findings.. Calvarium: Left-sided ventriculoperitoneal shunt entering from the left parietal skull and terminatin g in the 3rd ventricle. Bilateral frontal gala holes. Right temporal craniotomy. Visualized Paranasal sinuses/Mastoids: Clear. Soft Tissues: Unremarkable. Enhancement: Normal. CTA Brain W: Internal Carotid Arteries: Petrous: Normal. Cavernous: Normal. Cerebral: Normal. Middle Cerebral Arteries: Right: No aneurysm, occlusion or significant stenosis. Left: No aneurysm, occlusion or significant stenosis. Anterior Cerebral Arteries: Right: No aneurysm, occlusion or significant stenosis. Left: No aneurysm, occlusion or significant stenosis. Posterior cerebral Arteries: Right: No aneurysm, occlusion or significant stenosis. Left: No aneurysm, occlusion or significant stenosis. Vertebral Arteries: Right: No aneurysm, occlusion or significant stenosis. Left: No aneurysm, occlusion or significant stenosis. Basilar Artery: No aneurysm, occlusion or significant stenosis. CTA Neck W: Common Carotid: Right: No dissection, occlusion or significant stenosis. Left: No dissection, occlusion or significant stenosis. External Carotid: Right: No dissection, occlusion or significant stenosis. Left: No dissection, occlusion or significant stenosis. Internal Carotid: Right: No dissection, occlusion or significant stenosis. Left: No dissection, occlusion or significant stenosis. Vertebral Artery: Right: No dissection, occlusion or significant stenosis. Left: No dissection, occlusion or significant stenosis. Lung Apices: No acute findings. Bones: No acute abnormality. Soft Tissues: Normal. IMPRESSION: 1. CTA brain: Normal CTA examination of the [place]. 2. Head CT: Stable appearance of the ventricles. Stable appearance of left ventricular shunt. No ac paulie abnormality. 3. CTA neck: Normal CTA examination of the neck. No evidence of atherosclerotic disease. No evidenc e of vascular occlusion or dissection. RADIATION DOSE DELIVERED: Total DLP DATA REPOSITORY: All CT scans at this facility are submitted to the National Radiology Data Registry (NRDR) Dose Index Registry (DIR) with the [employer] (ACR). RADIATION OPTIMIZATION: All CT scans at this facility use at least one of these dose optimization te chniques: automated exposure control; mA and/or kV adjustment per patient size (includes targeted exa ms where dose is matched to clinical indication); or iterative reconstruction.
[2024-05-19 17:55] LABS: Abs Immature Grans 0.02 10^3/uL (0.0-0.06); Absolute Basophil Count 0.07 10^3/uL (0.0-0.2); Absolute Lymphocyte Count 2.98 10^3/uL (1.2-3.4); Absolute Monocyte Count 0.52 10^3/uL (0.1-0.8); Absolute Neutrophil Count 5.54 10^3/uL (1.2-6.7); Basophils % 0.8 %; Eosinophils % 1.1 %; HCT 45.9 % (40.0-50.0); HGB 15.6 g/dL (13.5-17.5); Immature Grans % 0.2 %; Lactate 1.3 mmol/L (<or=2.0); Lymphocytes % 32.3 %; MCH 29.3 pg (27.0-33.0); MCV 86 fL (80-95); MPV 8.9 fL (8.0-11.0); Monocytes % 5.6 %; Platelet Count 214 10^3/uL (130-400); RBC 5.32 10^6/uL (4.36-5.78); RDW 12.9 % (11.8-14.1); RDW-SD 40.1 fL; WBC 9.23 10^3/uL (4.4-10.8)
[2024-05-19 18:12] LABS: Ammonia < 10 umol/L (11-32)
[2024-05-19 18:18] LABS: ALT 22 U/L (16-63); AST 13 U/L (15-37); Alkaline Phosphatase 145 U/L (46-116); Anion Gap 10.5 mmol/L (3-11); BUN 17 mg/dL (7-18); Bilirubin, Total 0.5 mg/dL (0.2-1.0); CO2 26.5 mmol/L (21.0-32.0); CREATININE 1.2 mg/dL (0.70-1.30); Calcium 9.5 mg/dL (8.5-10.1); Chloride 105 mmol/L (98-107); Estimated GFR 73.22 (mL/min/1.73m2); Glucose 96 mg/dL (74-106); Sodium 142 mmol/L (136-145); Total Protein 7.9 g/dL (6.4-8.2)
[2024-05-19 18:21] LABS: Magnesium 2.2 mg/dL; TSH (W/Ref FT4) 1.85 uIU/mL (0.36-3.74)
[2024-05-19 18:23] LABS: Troponin I < 4 ng/L (<or=76)
[2024-05-19] MEDS: Omnipaque 350 MG/ML 100 ML BTL 70 ML IJ (18:30)
[2024-05-19] MEDS: Normal Saline - Diluent 50 ML VIAL IJ (18:32)
[2024-05-19 21:58] VITALS: BP 147/84; PULSE 84; RESP 18; O2SAT 98
--- NOTE | 2024-05-19 22:21 | NUR.NOTE ---
[id number] tele neuro at bedside Nursing Note:
--- NOTE | 2024-05-19 22:43 | NUR.NOTE ---
2199 took report on PT Nursing Note:
[2024-05-19 22:47] VITALS: BP 144/103; PULSE 60; RESP 18; O2SAT 98
== END 2024-05-19 22:58 | disposition home or self-care (01) ==
PROVIDERS: Emergency Provider Physician Assistant; PCP Physician Assistant
DX: R42 Dizziness and giddiness (principal); G24.01 Drug induced subacute dyskinesia; I10 Essential (primary) hypertension; E78.5 Hyperlipidemia, unspecified; G40.909 Epilepsy, unspecified, not intractable, without status epilepticus; Q03.0 Malformations of aqueduct of Sylvius; Z98.2 Presence of cerebrospinal fluid drainage device
CPT/HCPCS: 36415; 70496; 70498; 80053; 99285; 70360; 71045; 72050; 74018; 82140; 83605; 83735; 84443; 84484; 85025; 99284; J3490

== ENCOUNTER 2024-05-25 18:47 | Outpatient (REF) | payer MEDICARE, MEDICAID, SELFPAY ==
[2024-05-25 21:06] LABS: Abs Immature Grans 0.02 10^3/uL (0.0-0.06); Absolute Basophil Count 0.06 10^3/uL (0.0-0.2); Absolute Eosinophil Count 0.12 10^3/uL (0.0-0.7); Absolute Lymphocyte Count 3.12 10^3/uL (1.2-3.4); Absolute Monocyte Count 0.49 10^3/uL (0.1-0.8); Absolute Neutrophil Count 4.99 10^3/uL (1.2-6.7); Basophils % 0.7 %; Eosinophils % 1.4 %; HCT 47.9 % (40.0-50.0); HGB 16.1 g/dL (13.5-17.5); Immature Grans % 0.2 %; Lymphocytes % 35.5 %; MCH 29.6 pg (27.0-33.0); MCHC 33.6 % (32.0-36.0); MCV 88 fL (80-95); MPV 9.7 fL (8.0-11.0); Monocytes % 5.6 %; Neutrophils % 56.6 %; Platelet Count 215 10^3/uL (130-400); RBC 5.44 10^6/uL (4.36-5.78); RDW 13.2 % (11.8-14.1); RDW-SD 42.5 fL
[2024-05-25 21:19] LABS: Anion Gap 11.5 mmol/L (3-11); BUN 17 mg/dL (7-18); CO2 26.5 mmol/L (21.0-32.0); CREATININE 1.3 mg/dL (0.70-1.30); Calcium 9.7 mg/dL (8.5-10.1); Chloride 106 mmol/L (98-107); Estimated GFR 66.51 (mL/min/1.73m2); Glucose 128 mg/dL (74-106); Potassium 4.3 mmol/L (3.5-5.1); Sodium 144 mmol/L (136-145)
== END 2024-05-25 18:48 | disposition home or self-care (01) ==
LOC: LBN 18:47
PROVIDERS: PCP Physician Assistant; Visit Provider Physician Assistant Medical
DX: R42 Dizziness and giddiness (principal)
CPT/HCPCS: 80048; 85025

== ENCOUNTER → 2024-06-07 08:47 | Outpatient (BNVA) | payer MEDICARE, MEDICAID, SELFPAY | PROVIDERS: PCP Physician Assistant; Visit Provider Nurse Practitioner Adult Health | DX: G43.009 Migraine without aura, not intractable, without status migrainosus (principal); G24.01 Drug induced subacute dyskinesia; G31.84 Mild cognitive impairment of uncertain or unknown etiology | CPT/HCPCS: 99214 ==

== ENCOUNTER 2024-07-26 13:30 | Outpatient (REF) | payer MEDICARE, MEDICAID, SELFPAY ==
[2024-07-26 14:23] LABS: ESR 10 mm/hr (0-20); HCT 53.7 % (40.0-50.0); HGB 17.8 g/dL (13.5-17.5); MCHC 33.1 % (32.0-36.0); MCV 91 fL (80-95); MPV 10.1 fL (8.0-11.0); Platelet Count 280 10^3/uL (130-400); RBC 5.93 10^6/uL (4.36-5.78); RDW 12.2 % (11.8-14.1); RDW-SD 40.7 fL; WBC 10.96 10^3/uL (4.4-10.8)
[2024-07-26 14:29] LABS: Anion Gap 8.4 mmol/L (3-11); BUN 16 mg/dL (7-18); CO2 24.6 mmol/L (21.0-32.0); Calcium 9.7 mg/dL (8.5-10.1); Chloride 103 mmol/L (98-107); Estimated GFR 91.12 (mL/min/1.73m2); Glucose 121 mg/dL (74-106); Potassium 4.1 mmol/L (3.5-5.1); Sodium 136 mmol/L (136-145)
== END 2024-07-26 13:31 | disposition home or self-care (01) ==
LOC: NCHCN 13:30
PROVIDERS: PCP Physician Assistant; Visit Provider Physician Assistant
DX: R51.9 Headache, unspecified (principal)
CPT/HCPCS: 80048; 85027; 85652

== ENCOUNTER 2024-07-27 12:15 | Outpatient (CLI) | payer MEDICARE, MEDICAID, SELFPAY ==
[2024-07-30 13:36] LABS: Testosterone, Total 1780 ng/dL (240-950)
== END 2024-07-27 12:16 | disposition home or self-care (01) ==
PROVIDERS: PCP Physician Assistant; Visit Provider Nurse Practitioner Gerontology
DX: E29.1 Testicular hypofunction (principal)
CPT/HCPCS: 36415; 84403

== ENCOUNTER 2024-07-28 02:33 | Outpatient (CLI) | payer MEDICARE, MEDICAID, SELFPAY ==
--- NOTE | 2024-07-28 | DI.RAD_ITS ---
Exam(s) XR SHUNT SERIES EXAM: XR SHUNT SERIES CLINICAL HISTORY: R51.9 Headache, unspecified, Shunt series for ventricular thoracic shunt. TECHNIQUE: 2D digital imaging was performed. COMPARISON: CR XR SHUNT SERIES from 05/19/2024 Findings: SKULL: Unremarkable. There are bilateral gala holes. LUNGS: No focal infiltrates. No pleural effusion or pneumothorax. The pulmonary vasculature is with in normal limits. No pleural abnormality seen. HEART: Normal. MEDIASTINUM: Normal. BOWEL GAS PATTERN: Nondistended bowel loops. No air-fluid levels seen. ABNORMAL COLLECTIONS OF AIR: No abnormal collection of air. No pneumoperitoneum. CALCIFICATIONS: None. No radiopaque renal, ureteral, or bladder calcification. There are surgical cl ips in the right upper quadrant of the abdomen and the left lower quadrant of the abdomen. SHUNT CATHETER: Visualized portions of shunt catheter from the level of the skull to the level of the abdomen is continuous without evidence of kink or break. The tip of the shunt tubing is seen in the left upper quadrant of the abdomen. There is again seen a portion of old shunt tubing in the right neck. There is also seen shunt tubing in the right chest and abdomen. OTHER FINDINGS: None. IMPRESSION: 1. The left-sided RETORT FORKER shunt tubing is intact. 2. Nonobstructive bowel gas pattern. 3. No acute pulmonary findings. DATA REPOSITORY: RADIATION DOSE DELIVERED:
== END 2024-07-28 02:53 ==
LOC: DI 02:33
PROVIDERS: PCP Physician Assistant; Visit Provider Physician Assistant
DX: R51.9 Headache, unspecified (principal)
CPT/HCPCS: 70360; 71045; 72050; 74018

== ENCOUNTER → 2024-08-02 08:25 | Outpatient (BNVA) | payer MEDICARE, MEDICAID, SELFPAY | PROVIDERS: PCP Physician Assistant; Referring Provider Physician Assistant; Visit Provider Nurse Practitioner Gerontology | DX: E29.1 Testicular hypofunction (principal); R39.9 Unspecified symptoms and signs involving the genitourinary system | CPT/HCPCS: 99214 ==

== ENCOUNTER → 2024-08-24 09:31 | Outpatient (BNVA) | payer MEDICARE, MEDICAID, SELFPAY | PROVIDERS: PCP Physician Assistant; Visit Provider Nurse Practitioner Adult Health | DX: G43.009 Migraine without aura, not intractable, without status migrainosus (principal) | CPT/HCPCS: 99214 ==

== ENCOUNTER 2024-11-01 18:25 | Emergency (ER) | payer MEDICARE, MEDICAID, SELFPAY ==
[2024-11-01] VITALS (53 sets, daily range): BP systolic 137–161; BP diastolic 93–96; PULSE 63–79; RESP 4–22; TEMP 36.1–37.1; O2SAT 94–97
--- NOTE | 2024-11-01 19:17 | W.ED.GENAD ---
Discharge Plan Discharge Details Chief Complaint: GenMedical Primary Care Provider: Peter Lebron ED Provider: Royal Torres Lowell Meds and New Rx's Prescriptions: No Action atorvastatin 10 mg tablet 10 mg PO DAILY cholecalciferol (vitamin D3) 50 mcg (2,000 unit) capsule 50 mcg PO DAILY fenofibrate 160 mg tablet 160 mg PO DAILY testosterone cypionate 200 mg/mL oil 100 mg IM Q2W Qty: 10 0RF Rx Instructions: multi-use vial Take only 0.5ml every 2 weeks (DME) syringe (disposable) [BD Luer-Kayla Syringe] 5 mL syringe See Rx Instructions .ROUTE .MEDSUPPLY Qty: 100 0RF Rx Instructions: use with needle for testosterone inject [id number] #2/mo. Ubrelvy 100 mg tablet 100 mg PO ONCE Qty: 14 3RF Rx Instructions: as a single dose; may repeat once in >=2 hours after first dose if needed Aimovig Autoinjector 140 mg/mL auto-injector 140 mg subcut QMONTH Qty: 1 11RF Ingrezza 40 mg capsule 40 mg PO BID (DME) BD Eclipse Luer-Kayla 25 gauge x 1 1/2 needle See Rx Instructions .ROUTE .COMPLEX Qty: 6 0RF Dose Instruction: USE ONE NEEDLE TO INJECT TESTOSTERONE EVERY 2 WEEKS #2/MONTH. Rx Instructions: USE ONE NEEDLE TO INJECT TESTOSTERONE EVERY 2 WEEKS #2/MONTH. pantoprazole 40 mg tablet,delayed release (DR/EC) 40 mg PO DAILY cyanocobalamin (vitamin B-12) 500 mcg tablet, sublingual 1,000 mcg sublingual DAILY (DME) BD Regular Bevel [place] 18 gauge x 1 1/2 needle See Rx Instructions .ROUTE .COMPLEX Qty: 6 0RF Dose Instruction: USE ONE NEEDLE TO DRAW UP TESTOSTERONE EVERY 2 WEEKS. #2/MONTH Rx Instructions: USE ONE NEEDLE TO DRAW UP TESTOSTERONE EVERY 2 WEEKS. #2/MONTH levothyroxine 25 mcg tablet 25 mcg PO DAILY acetaminophen 500 mg tablet 500 mg PO Q6H PRN PRN (Reason: pain) Qty: 60 3RF ibuprofen 600 mg tablet 600 mg PO Q8H PRN PRN (Reason: pain) Qty: 60 0RF atorvastatin 40 mg tablet 40 mg PO DAILY HPI General Mode of arrival: ambulatory. Date/Time Provider Initiated Documentation: 11/01/24 19:07. Limitations to Documentation: no limitations. Information obtained by: patient and RN notes reviewed. HPI Narrative: Patient presents to ED with onset of right hand numbness, weakness, trauma approximately 24 hours ago. He is also having pain from the right wrist area up into the forearm. He has had 2 carpal tunnel surgeries in the distant past on this side. Denies any acute injury. There is no swelling or redness anywhere. He has otherwise been feeling well. Denies any type of fever, headache, neurologic changes elsewhere, vomiting, gait disturbance. Patient does have a BLANKET WEAVER shunt. He also has history of seizures but not similar to what is happening over the last 24 hours. He did with 2 weeks ago and is otherwise mostly recovered other than feeling very fatigued still. Related Data Home Medications ?Medication ?Instructions ?Recorded ?Confirmed levothyroxine 25 mcg tablet 25 mcg PO DAILY 01/27/19 11/01/24 acetaminophen 500 mg tablet 500 mg PO Q6H PRN PRN pain #60 tabs 10/11/19 11/01/24 ibuprofen 600 mg tablet 600 mg PO Q8H PRN PRN pain #60 tabs 10/11/19 11/01/24 atorvastatin 10 mg tablet 10 mg PO DAILY 06/04/22 11/01/24 cholecalciferol (vitamin D3) 50 50 mcg PO DAILY 06/04/22 11/01/24 mcg (2,000 unit) capsule syringe (disposable) 5 mL (BD #100 ea 08/03/23 11/01/24 Luer-Kayla Syringe) safety needles 25 gauge x 1 1/2 #6 ea 12/08/23 11/01/24 (BD Eclipse Luer-Kayla) cyanocobalamin (vitamin B-12) 500 1,000 mcg sublingual DAILY 02/15/24 11/01/24 mcg sublingual tablet pantoprazole 40 mg tablet,delayed 40 mg PO DAILY 02/15/24 11/01/24 release fenofibrate 160 mg tablet 160 mg PO DAILY 03/29/24 11/01/24 testosterone cypionate 200 mg/mL 100 mg (0.5 mL) IM Q2W #10 mL 08/02/24 11/01/24 intramuscular oil erenumab-aooe 140 mg/mL 140 mg subcut QMONTH #1 mL 08/24/24 11/01/24 subcutaneous auto-injector (Aimovig Autoinjector) ubrogepant 100 mg tablet (Ubrelvy) 100 mg PO ONCE #14 tabs 08/24/24 11/01/24 valbenazine 40 mg capsule 40 mg PO BID 08/24/24 11/01/24 (Ingrezza) needle (disp) 18 G 18 gauge x 1 #6 ea 09/19/24 11/01/24 1/2 (BD Regular Bevel [place]) atorvastatin 40 mg tablet 40 mg PO DAILY 11/01/24 11/01/24 Previous Rx's ?Medication ?Instructions ?Recorded acetaminophen 500 mg tablet 500 mg PO Q6H PRN PRN pain #60 tabs 10/11/19 ibuprofen 600 mg tablet 600 mg PO Q8H PRN PRN pain #60 tabs 10/11/19 syringe (disposable) 5 mL (BD #100 ea 08/03/23 Luer-Kayla Syringe) safety needles 25 gauge x 1 1/2 #6 ea 12/08/23 (BD Eclipse Luer-Kayla) testosterone cypionate 200 mg/mL 100 mg (0.5 mL) IM Q2W #10 mL 08/02/24 intramuscular oil erenumab-aooe 140 mg/mL 140 mg subcut QMONTH #1 mL 08/24/24 subcutaneous auto-injector (Aimovig Autoinjector) ubrogepant 100 mg tablet (Ubrelvy) 100 mg PO ONCE #14 tabs 08/24/24 needle (disp) 18 G 18 gauge x 1 #6 ea 09/19/24 12 (BD Regular Bevel [place]) Allergies Allergy/AdvReac Type Severity Reaction Status Date / Time Penicillins Allergy Severe Anaphylaxsis, Verified 08/24/24 09:35 RASH vancomycin Allergy Severe Skin Rash Verified 08/24/24 09:35 latex Allergy Intermediate hives with Verified 08/24/24 09:35 latex powdered gloves General Stated Complaint: GenMedical GLO: 4 Exam Narrative Exam Narrative: Const: WDWN male in NAD. VS per triage. HEENT: NC/AT. Normal facial exam. Eyes: Strabismus present but EOMI Neck: Supple. Trachea midline. Lungs: Normal respiratory effort. Cor: RRR. Good radial pulses. Neuro: A+O x 3. Normal speech, mentation, gait. Cranial nerves II - XII grossly intact. Right manager qa strength weak compared to left. Pain and extension slightly weak compared to left. Proximal strength is intact. Decreased sensation in the palmar aspect of ring and little finger. Normal sensation involving thumb, index, middle finger as well as dorsum of the hand. Normal sensation involving arm. Intermittent rhythmic jerking involving right index finger and less involvement of thumb and long finger. Ext: No C/C/E. No right upper extremity swelling. No forearm tenderness. Radial pulse normal. Course Vital Signs Vital signs: Vital Signs Pulse 75 11/01/24 19:03 Respiratory Rate 20 11/01/24 19:03 Blood Pressure 161/96 H 11/01/24 19:03 Pulse Oximetry 96 11/01/24 19:03 Temperature 96.9 F L 11/01/24 19:07 Temperature Source Temporal Artery Scan 11/01/24 19:07 Pulse 75 11/01/24 19:07 Respiratory Rate 20 11/01/24 19:07 Respiratory Effort Normal, Non-Labored 11/01/24 19:07 Respiratory Depth Normal 11/01/24 19:07 Respiratory Pattern Normal 11/01/24 19:07 Blood Pressure 161/96 H 11/01/24 19:07 Blood Pressure Position Sitting 11/01/24 19:07 Pulse Oximetry 96 11/01/24 19:07 Oxygen Delivery Method Room Air 11/01/24 19:07 Oxygen Flow Rate 0 11/01/24 19:07 Pain Level 6 11/01/24 19:07 Medical Decision Making Patient presenting to ED with right upper extremity weakness, numbness, tremor present for the last 24 hours. Patient has complicated past medical history including BLANKET WEAVER shunt placement, seizures, multiple surgeries for both carpal tunnel and ulnar tunnel. His tremor seems more rhythmic than one would expect but only involves the thumb, index finger, long finger of the right hand. He has weakness to the right hand and somewhat to the right wrist. He has sensory change in the right hand consistent with ulnar nerve involvement. Overall there is no clear neurologic localization. Could be carpal tunnel but the sensory change does not really fit. I have also never seen tremors associated with carpal tunnel. The tremor he is describing looks rhythmic so consider possibility of focal seizures. He does have a shunt but denies severe headache, vision change, other neurologic symptoms. Will place an IV and check some basic labs given his recent COVID illness. Will obtain CT head noncontrast to evaluate shunt, will include shunt series. Given the unclear presentation as well as history of seizures and BLANKET WEAVER shunt will obtain teleneuro consult for guidance. Laboratory studies with a white count of 12.5 otherwise normal hemoglobin and platelets. Chemistries unremarkable with normal electrolytes. CT head preliminary read by radiology shows no acute process, no hydrocephalus. Shunt series difficult to asses due to multiple old shunt pieces noted, appears to likely be in tact. Patient signed out to oncoming ED physician, Dr. Grant, pending tele-neuro consult. Lab Data Lab results reviewed: Yes I reviewed the patient's lab results. Lab results narrative: see [facility] All Active Problems Spell of abnormal behavior (Acute) Tremor (Acute) Migraine headache without aura (Acute) Status migrainosus (Acute) Sessile serrated polyp of colon (Acute ~05/06/22) Internal derangement of right knee (Acute) Mild cognitive impairment (Acute) Vertigo (Acute) Odontalgia (Acute) Right ankle sprain (Acute) Suicidal ideation (Acute) Major depression (Chronic) Depression (Chronic) Right carpal tunnel syndrome (Acute) Migraine headache with aura (Acute) Ulnar neuropathy of right upper extremity (Acute) Carpal tunnel syndrome on both sides (Acute) Peripheral neuropathy (Acute) Acute stress reaction (Acute) Premature ejaculation (Acute) Hypogonadism in male (Acute) Gastritis (Acute) Esophagitis (Acute) Colorectal polyp detected on colonoscopy (Acute) Tubular adenoma in 2021 Abdominal pain (Acute) Current visit - YES Arthritis of right acromioclavicular joint (Acute 11/05/16) Chronic headaches (Acute) Medical History Hearing loss Hydrocephalus associated with congenital aqueduct stenosis Memory impairment Seizures pt. states last seizures was when he was a kid Persistent headaches CRI (chronic renal insufficiency) Cognitive developmental delay Pseudoseizures Hypogonadism Exotropia of right eye congenital Asymptomatic microscopic hematuria Tubular adenoma of colon History of head injury Per pt. 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 is patent Surgical History History of colonoscopy with polypectomy (~05/06/22) Hx of shoulder surgery Hx of colonoscopy (~10/2021) S/P carpal tunnel release right S/P cholecystectomy Intracranial shunt with several revisions Per pt. is patent Social History Smoking/Tobacco Use Status: Never Smoking risk assessment performed?: Yes Alcohol Intake: never Drug use: Never Substance use type: does not use Household members: spouse and children Number of Children: 3 current occupation: [employer] Current gender identity: male What is your relationship status?: Panel score (0-1 are the most socially isolated patients): 1 Seatbelt use: always Do you feel safe at home: Yes Do you feel safe in your relationship?: Yes
--- NOTE | 2024-11-01 19:30 | DI.RAD_ITS ---
Exam(s) XR SHUNT SERIES EXAM: XR SHUNT SERIES CLINICAL HISTORY: new onset right hand weakness/tremor. TECHNIQUE: 2D digital imaging was performed. COMPARISON: CR XR SHUNT SERIES from 12/04/2022 Findings: SKULL: Several craniotomy defects. Left-sided ventriculoperitoneal shunt. No destructive osseous lesion seen. LUNGS: Clear. No pleural abnormality seen. HEART: Normal. MEDIASTINUM: Normal. BOWEL GAS PATTERN: Nondistended bowel loops. No air-fluid levels seen. ABNORMAL COLLECTIONS OF AIR: No abnormal collection of air. No pneumoperitoneum. CALCIFICATIONS: None. No radiopaque renal, ureteral, or bladder calcification. SHUNT CATHETER: Visualized portions of the left shunt catheter from the level of the skull to the level of the abdomen is continuous without evidence of kink or break. The distal end of the shunt terminates in the left upper quadrant. Several abandoned shunts are seen. IMPRESSION: 1. Left-sided ventriculoperitoneal shunt appears intact. 2. No acute pulmonary findings. Bowel gas pattern is unremarkable. The preliminary [facility] report was reviewed. DATA REPOSITORY: RADIATION DOSE DELIVERED:
--- NOTE | 2024-11-01 19:30 | DI.CT_ITS ---
Exam(s) CT HEAD WO EXAM: CT HEAD WO CLINICAL HISTORY: hx of shunt; right hand weakness/tremor. TECHNIQUE: Imaging Protocol: Axial computed tomography images with coronal and sagittal reformatted images were created and reviewed COMPARISON: CT CT BRAIN NECK CTA from 05/19/2024 FINDINGS: Ventricles and Extra axial spaces: There is a ventricular shunt entering from the left parietal region. The ventricles are not dilated. It is no change in appearance compared the path of the prior exam. Hemorrhage: None. Cerebral parenchyma: No evidence of acute infarct or mass. Stable area of encephalomalacia in the anterior superior right frontal lobe likely related to previous shunt. There is no overlying craniotomy defect. Midline shift: None. Brainstem/Cerebellum: Normal. Bones: No skull or facial fractures. Multiple craniotomy defects. Visualized Paranasal sinuses:Opacification of multiple ethmoid sinuses. Mucous retention in the maxillary and frontal sinuses. Mastoids: Clear. Soft Tissues: Unremarkable. ORBITS: Unremarkable. PITUITARY: Not enlarged. IMPRESSION: No acute intracranial process. Stable appearance of ventriculoperitoneal shunt. Stable appearance of ventricles, nondilated. RADIATION DOSE DELIVERED: 840.79mGy.cm Total DLP DATA REPOSITORY: All CT scans at this facility are submitted to the National Radiology Data Registry (NRDR) Dose Index Registry (DIR) with the [employer] (ACR). RADIATION OPTIMIZATION: All CT scans at this facility use at least one of these dose optimization techniques: automated exposure control; mA and/or kV adjustment per patient size (includes targeted exams where dose is matched to clinical indication); or iterative reconstruction.
[2024-11-01 20:07] LABS: Abs Immature Grans 0.03 10^3/uL (0.0-0.06); HCT 49.2 % (40.0-50.0); HGB 16.7 g/dL (13.5-17.5); Immature Grans % 0.2 %; MCH 29.0 pg (27.0-33.0); MCHC 33.9 % (32.0-36.0); MCV 85 fL (80-95); MPV 9.4 fL (8.0-11.0); Platelet Count 296 10^3/uL (130-400); RBC 5.76 10^6/uL (4.36-5.78); RDW 12.2 % (11.8-14.1); RDW-SD 38.2 fL; WBC 12.45 10^3/uL (4.4-10.8)
[2024-11-01 20:19] LABS: Anion Gap 11.5 mmol/L (3-11); BUN 18 mg/dL (7-18); CO2 25.5 mmol/L (21.0-32.0); Calcium 9.4 mg/dL (8.5-10.1); Chloride 104 mmol/L (98-107); Estimated GFR 66.51 (mL/min/1.73m2); Glucose 90 mg/dL (74-106); Magnesium 2.1 mg/dL (1.8-2.4); Potassium 3.9 mmol/L (3.5-5.1); Sodium 141 mmol/L (136-145)
--- NOTE | 2024-11-01 21:56 | DI.[facility]_ITS ---
PROCEDURE INFORMATION: Exam: CT Head Without Contrast Exam date and time: 11/01/2024 8:47 PM Age: 53 years old Clinical indication: Weakness, extremity; Prior surgery; Surgery date: 6+ months; Surgery type: Shunt; New onset right hand weakness/tremor TECHNIQUE: Imaging protocol: Computed tomography of the head without contrast. Radiation optimization: All CT scans at this facility use at least one of these dose optimization techniques: automated exposure control; mA and/or kV adjustment per patient size (includes targeted exams where dose is matched to clinical indication); or iterative reconstruction. COMPARISON: CT BRAIN NECK CTA 05/19/2024 6:24 PM FINDINGS: Brain: No acute intracranial hemorrhage, mass-effect, midline shift, or extra-axial collection is seen. The vu white matter differentiation appears preserved. There is patchy white matter hypoattenuation, most prominent in the right frontal lobe where the appearance suggests encephalomalacia along an old ventriculostomy catheter tract. Cerebral ventricles: There is a left posterior approach ventriculostomy catheter in-situ. There is no hydrocephalus. Paranasal sinuses: There is patchy mucoperiosteal thickening and fluid in the visualized paranasal sinuses. Mastoid air cells: The mastoid air cells appear well-aerated. Auditory system: The middle ear cavities appear clear. Orbital cavities: The globes and intraorbital structures appear grossly intact. Bones: There are multiple old small craniotomy defects. No acute skull fracture is seen. Soft tissues: No significant scalp lesion is seen. IMPRESSION: 1. No acute intracranial hemorrhage or mass effect. 2. Left posterior approach ventriculostomy catheter in-situ. No hydrocephalus. 3. Multiple old small craniotomy defects. Dictated and Authenticated by: Gio Polanco MD. Orderin Brian Paige MD
--- NOTE | 2024-11-01 22:52 | DI.[facility]_ITS ---
PROCEDURE INFORMATION: Exam: XR Shunt Series With 4 XR Procedures Exam date and time: 11/01/2024 8:43 PM Age: 53 years old Clinical indication: Other: New onset right hand weakness/tremor TECHNIQUE: Imaging protocol: XR Shunt Series was performed with skull less than 4 views, neck 1 view, chest 1 view, and abdomen 1 view. COMPARISON: CR XR SHUNT SERIES 07/28/2024 10:01 AM FINDINGS: Tubes, catheters and devices: Ventriculostomy shunt from a left parietal approach appears continuous through the visualized portions of the neck and chest with the distal end of the shunt apparently in the left upper quadrant of the abdomen. Abandoned shunt fragments are noted in the right neck and chest. There is either marked tortuosity of the left-sided shunt or additional abandoned shunt fragments in the left chest. Paranasal sinuses: Visualized paranasal sinuses are well aerated. Lungs: No consolidations. Gastrointestinal tract: Bowel is unremarkable. Bones/joints: Moderate degenerative changes of the spine. Bones are otherwise unremarkable Soft tissues: Unremarkable. IMPRESSION: Limited evaluation of ventriculostomy shunt due to multiple overlying portions of the shunt and/or abandoned shunt fragments in the left chest. Distal end of the shunt appears to project in the left upper quadrant of the abdomen but whether this is the current shunt that is in use is unclear. Alternatively, this may represent distal end of a ventriculopleural shunt in the posterior sulcus of the left lower chest. If there is persistent clinical concern for shunt malfunction, correlation with CT would be recommended. Dictated and Authenticated by: Erlin Longoria MD. Orderin Brian Paige MD
== END 2024-11-01 23:32 | disposition home or self-care (01) ==
PROVIDERS: Emergency Provider Emergency Medicine; PCP Physician Assistant
DX: R25.1 Tremor, unspecified (principal); R20.0 Anesthesia of skin
CPT/HCPCS: 80048; 99285; 70360; 70450; 71045; 72050; 74018; 83735; 85025; 99284

== ENCOUNTER 2024-11-03 19:03 | Emergency (ER) | payer MEDICARE, MEDICAID, SELFPAY ==
[2024-11-03] VITALS (14 sets, daily range): BP systolic 113–150; BP diastolic 67–97; PULSE 57–277; RESP 18; TEMP 37.1; O2SAT 96–98
--- NOTE | 2024-11-03 19:15 | RT.EKG_ITS ---
APPROVED REPORT Exam: Resting ECG Reason for Exam: dizziness Patient Location: E HR:69 bpm ECG Measurements Heart Rate 69 AXIS WV 130 P 19 QRSd 82 QRS 1 QT 404 T 3 QTc 435 Conclusion Sinus rhythm...normal P axis, V-rate 60- 99 No STEMI
--- NOTE | 2024-11-03 19:45 | DI.RAD_ITS ---
Exam(s) XR PORTABLE CHEST AP EXAM: XR PORTABLE CHEST AP CLINICAL HISTORY: dizziness. TECHNIQUE: 2D digital imaging was performed. COMPARISON: No exams were available for comparison FINDINGS: Single AP portable view. Heart size is upper normal. The mediastinum is not widened. Lungs are clear. No infiltrates nor obvious pleural effusions. IMPRESSION: No acute pulmonary findings on this single AP portable view of the chest. DATA REPOSITORY: RADIATION DOSE DELIVERED:
--- NOTE | 2024-11-03 19:58 | W.ED.GENAD ---
Discharge Plan Disposition Patient Disposition: Against Medical Advice Discharge Details Clinical Impression: Vertigo Primary Care Provider: Peter Lebron ED Provider: Sahil Barnes Meds and New Rx's Prescriptions: New aspirin 81 mg capsule 81 mg PO DAILY Qty: 180 0RF Continued cholecalciferol (vitamin D3) 50 mcg (2,000 unit) capsule 50 mcg PO DAILY fenofibrate 160 mg tablet 160 mg PO DAILY testosterone cypionate 200 mg/mL oil 100 mg IM Q2W Qty: 10 0RF Rx Instructions: multi-use vial Take only 0.5ml every 2 weeks (DME) syringe (disposable) [BD Luer-Kayla Syringe] 5 mL syringe See Rx Instructions .ROUTE .MEDSUPPLY Qty: 100 0RF Rx Instructions: use with needle for testosterone inject [id number] #2/mo. Ubrelvy 100 mg tablet 100 mg PO ONCE Qty: 14 3RF Rx Instructions: as a single dose; may repeat once in >=2 hours after first dose if needed Aimovig Autoinjector 140 mg/mL auto-injector 140 mg subcut QMONTH Qty: 1 11RF Ingrezza 40 mg capsule 40 mg PO BID (DME) BD Eclipse Luer-Kayla 25 gauge x 1 1/2 needle See Rx Instructions .ROUTE .COMPLEX Qty: 6 0RF Dose Instruction: USE ONE NEEDLE TO INJECT TESTOSTERONE EVERY 2 WEEKS #2/MONTH. Rx Instructions: USE ONE NEEDLE TO INJECT TESTOSTERONE EVERY 2 WEEKS #2/MONTH. pantoprazole 40 mg tablet,delayed release (DR/EC) 40 mg PO DAILY cyanocobalamin (vitamin B-12) 500 mcg tablet, sublingual 1,000 mcg sublingual DAILY (DME) BD Regular Bevel [place] 18 gauge x 1 1/2 needle See Rx Instructions .ROUTE .COMPLEX Qty: 6 0RF Dose Instruction: USE ONE NEEDLE TO DRAW UP TESTOSTERONE EVERY 2 WEEKS. #2/MONTH Rx Instructions: USE ONE NEEDLE TO DRAW UP TESTOSTERONE EVERY 2 WEEKS. #2/MONTH levothyroxine 25 mcg tablet 25 mcg PO DAILY acetaminophen 500 mg tablet 500 mg PO Q6H PRN PRN (Reason: pain) Qty: 60 3RF ibuprofen 600 mg tablet 600 mg PO Q8H PRN PRN (Reason: pain) Qty: 60 0RF atorvastatin 40 mg tablet 40 mg PO DAILY Discharge Instructions Instructions: Vertigo ED Additional Instructions: As discussed, he will be discharged AGAINST MEDICAL ADVICE as I am concerned that the symptoms you presented with may be caused by a stroke in your posterior circulation of your brain. As we discussed this area controls your balance center and can have profound effects that could result in permanent disability and up to if untreated. Tonight you were evaluated by Dr. Cui the [facility] teleneurology team who also recommended that you obtain an MRI of your brain to rule out a stroke. Given that your HOME CARE ATTENDANT shunt requires programming by the [facility] team following MRI, you will need to obtain an MRI for further evaluation at their facility. You were offered transfer to their facility tonight but you declined, so i would advise going to their ER [facility] in order to be evaluated for potential MRI Brain/MRI HOME CARE ATTENDANT Shunt Please follow-up with your primary care provider regarding your visit to the emergency department today. Be sure to discuss results of all test performed here today to include radiology, and laboratory testing as well as results for any pending cultures. Should your symptoms worsen, or if you develop new concerning symptoms, please return immediately emergency department for further evaluation. Discharge Data Discharge Date/Time-TO BE ENTERED AT DEPARTURE: 11/04/24 00:02 HPI General Date/Time Provider Initiated Documentation: 11/03/24 19:36. HPI Narrative: MDM/Narrative: Initial Assessment: Dizziness with gradual onset and constant nature, history of migraines, recent viral infection. Differential Diagnosis: - Labyrinthitis, M?ni?re's disease, vestibular neuritis: Possible due to recent viral infection. Symptoms typically intermittent, improve with rest. - Brain injury or stroke: Gradual onset, constant symptoms. CTA of head and neck to assess cerebral blood flow. - Migraine aura: History of migraines. Trial of Tylenol, ibuprofen, droperidol to manage symptoms. ED Course: - EKG performed - Blood work conducted - Tylenol, ibuprofen, droperidol administered - CTA of head and neck ordered - Labs notable for mild leukocytosis otherwise nonactionable. EKG nonischemic without arrhythmia. Chest x-ray shows no acute findings. CTA shows no acute ischemic process or flow-limiting stenosis. Mild right-sided maxillary sinusitis. Given patient's persistent vertigo symptoms, [facility] teleneurology was consulted. Patient was evaluated byDr. Cui the [facility] teleneurology team and it was recommended that patient be treated with 81 mg aspirin, and have an MRI of Brain to rule out posterior stroke. 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 They do not want to stay for transfer to [facility], as a the only facility capable of reprogramming the patient's HOME CARE ATTENDANT shunt following MRI they would prefer to go in the morning by POV to the emergency department at [facility]. I explained to them the risks of refusing transfer and that if he patient did sustain a cerebellar stroke he would be at high risk for decompensation which could lead to permanent disability and/or . 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 Clinical Impression: - Dizziness Disposition: Discharge AGAINST MEDICAL ADVICE This document was created with assistance from LATASHA Tejada. The patient consented to its use. HPI: The patient, a male with a history of migraines, presents with complaints of dizziness. The dizziness commenced at 1500 hours today and has been persistent since onset. The patient describes the dizziness as vertigo, characterized by a sensation of the room spinning, which is unaffected by rest, eye closure, or positional changes. The dizziness has impacted his balance, resulting in staggered gait. He experienced a headache prior to the onset of dizziness, which has since resolved. The patient utilizes Imitrex monthly for migraine prophylaxis. He reports no current headaches, pyrexia, chills, pain, visual disturbances, or significant speech difficulties, although he occasionally experiences slow speech. The patient has a ventriculoperitoneal (HOME CARE ATTENDANT) shunt and is awaiting an MRI with neurology, with no recent neurology consultations. There have been no recent changes in his medication regimen. The patient denies any issues with hypercholesterolemia or hypertension and is not on any medications for these conditions. He has never smoked and does not use substances or supplements. He reports a good appetite, with no episodes of vomiting or falls. He had a cold two weeks ago but currently has no nasal congestion or sore throat. He denies any ear pressure or chest pain. PAST SURGICAL HISTORY: The patient has undergone carpal tunnel release surgery, ulnar nerve release at the elbow, and excision of an accessory bone in the right shoulder. ROS: Negative besides as mentioned above Exam: Vital signs: Reviewed. General Appearance: Alert and oriented. No acute distress. HEENT: EOMI. Neck: Supple, full range of motion, no observable masses, No meningeal sign. Respiratory: No Respiratory distress. No tachypnea. Cardiovascular: RRR, no edema. Gastrointestinal: Soft, nondistended, No rebound tenderness. Back: No midline tenderness to palpation or palpable step-offs of the C/T/L spine. Musculoskeletal: Strength 5/5 in bilateral upper and lower extremities. Skin: Warm and dry, no rash. Neurological: CN II-XII intact. No facial asymmetry. Normal sensation bilaterally. Normal coordination with [id number] test. Normal rapid alternating movements. Able to stand on toes without increased dizziness. Psychiatric: Appropriate for situation. Rhythm: NSR Rate: 69 Baker: leftward axis Intervals: Normal intervals Other findings: No acute ST segment or T wave changes to suggest acute ischemia. Labs: Laboratory Tests Range/Units 11/03/24 11/03/24 11/03/24 20:55 21:14 22:50 WBC (4.4-10.8) 10^3/uL 11.36 H RBC (4.36-5.78) 10^6/uL 5.52 Hgb (13.5-17.5) g/dL 16.1 Hct (40.0-50.0) % 48.1 MCV (80-95) fL 87 MCH (27.0-33.0) pg 29.2 MCHC (32.0-36.0) % 33.5 RDW (11.8-14.1) % 12.2 Plt Count (130-400) 10^3/uL 270 MPV (8.0-11.0) fL 9.7 Immature Gran % % 0.4 Neutrophils % % 65.9 Lymphocytes % % 27.2 Monocytes % % 4.9 Eosinophils % % 1.1 Basophils % % 0.5 Nucleated RBC % (0.0-0.3) % 0.0 Absolute Neutrophils (1.2-6.7) 10^3/uL 7.49 H Absolute Lymphocytes (1.2-3.4) 10^3/uL 3.09 Absolute Monocytes (0.1-0.8) 10^3/uL 0.56 Absolute Eosinophils (0.0-0.7) 10^3/uL 0.12 Absolute Basophils (0.0-0.2) 10^3/uL 0.06 Sodium Cancelled 139 Potassium Cancelled 3.8 Chloride Cancelled 106 Carbon Dioxide Cancelled 26.4 Anion Gap Cancelled 6.6 BUN Cancelled 15 Creatinine Cancelled 1.1 Est GFR (CKD-EPI 2020) Cancelled 81.28 Glucose Cancelled 134 H Calcium Cancelled 8.9 Total Bilirubin Cancelled 0.4 AST Cancelled 14 L ALT Cancelled 32 Alkaline Phosphatase Cancelled 50 Troponin I Cancelled 4 4 Total Protein Cancelled 7.0 Albumin Cancelled 3.6 Radiology: PROCEDURE INFORMATION: Exam: CTA Head Without And With Contrast, Arteriography Exam date and time: 11/03/2024 9:50 PM Age: 53 years old Clinical indication: Dizziness and giddiness; Prior surgery; Surgery date: 6+ months; Surgery type: Shunt TECHNIQUE: Imaging protocol: Computed tomographic angiography of the head without and with contrast. Exam focused on the arteries. 3D rendering (Not supervised by radiologist): MIP and/or 3D reconstructed images were created by the technologist. Radiation optimization: All CT scans at this facility use at least one of these dose optimization techniques: automated exposure control; mA and/or kV adjustment per patient size (includes targeted exams where dose is matched to clinical indication); or iterative reconstruction. Contrast material: [id number]; Contrast volume: 70 ml; Contrast route: INTRAVENOUS (IV); COMPARISON: CT BRAIN NECK CTA 11/03/2024 8:09 PM FINDINGS: Tubes, catheters and devices: A left ventriculostomy catheter is present, the tip of which is present at midline at the septum pellucidum. A ventriculostomy shunt catheter is noted along the subcutaneous tissues of the left neck. The catheter appears continuous where visualized. ANTERIOR CIRCULATION: Right internal carotid artery: Intracranial segment is patent with no significant stenosis or occlusion. No aneurysm. Right middle cerebral artery: No occlusion or significant stenosis. No aneurysm. Right anterior cerebral artery: No occlusion or significant stenosis. No aneurysm. ARON KEANE Preliminary Radiology Report Page 2 of 3 Left internal carotid artery: Intracranial segment is patent with no significant stenosis. No aneurysm. Left middle cerebral artery: No occlusion or significant stenosis. No aneurysm. Left anterior cerebral artery: No occlusion or significant stenosis. No aneurysm. POSTERIOR CIRCULATION: Right vertebral artery: No occlusion or significant stenosis. No aneurysm. Left vertebral artery: No occlusion or significant stenosis. No aneurysm. Basilar artery: No occlusion or significant stenosis. No aneurysm. Right posterior cerebral artery: No occlusion or significant stenosis. No aneurysm. Left posterior cerebral artery: No occlusion or significant stenosis. No aneurysm. Veins: Trace gas is noted at the foramen magnum which may be associated with some gas injected through the venous system at the time of contrast administration. Trace gas is also present within the right internal jugular vein. HEAD: Brain: No acute intracranial hemorrhage or mass lesions. No midline shift. Normal vu-white differentiation. Encephalomalacia is redemonstrated within the right frontal lobe unchanged from the study dated 05/19/2024. Cerebral ventricles: Normal. No ventriculomegaly. Bones: Prior right craniotomy noted. Paranasal sinuses: Fluid and gas is layered in the bilateral maxillary sinuses. There is ethmoid air cell mucosal thickening. The other paranasal sinuses are clear. Mastoid air cells: Visualized mastoids are normal. No mastoid effusion. Soft tissues: Unremarkable. IMPRESSION: 1. No stenosis, occlusion, or aneurysm. 2. No acute intracranial findings. Specifically, no hydronephrosis. 3. Findings suspicious for acute maxillary sinusitis. Exam(s) XR PORTABLE CHEST AP EXAM: XR PORTABLE CHEST AP CLINICAL HISTORY: dizziness. TECHNIQUE: 2D digital imaging was performed. COMPARISON: No exams were available for comparison FINDINGS: Single AP portable view. Heart size is upper normal. The mediastinum is not widened. Lungs are clear. No infiltrates nor obvious pleural effusions. IMPRESSION: No acute pulmonary findings on this single AP portable view of the chest. DATA REPOSITORY: RADIATION DOSE DELIVERED: Related Data Home Medications ?Medication ?Instructions ?Recorded ?Confirmed levothyroxine 25 mcg tablet 25 mcg PO DAILY 01/27/19 11/03/24 acetaminophen 500 mg tablet 500 mg PO Q6H PRN PRN pain #60 tabs 10/11/19 11/03/24 ibuprofen 600 mg tablet 600 mg PO Q8H PRN PRN pain #60 tabs 10/11/19 11/03/24 cholecalciferol (vitamin D3) 50 50 mcg PO DAILY 06/04/22 11/03/24 mcg (2,000 unit) capsule syringe (disposable) 5 mL (BD #100 ea 08/03/23 11/03/24 Luer-Kayla Syringe) safety needles 25 gauge x 1 1/2 #6 ea 12/08/23 11/03/24 (BD Eclipse Luer-Kayla) cyanocobalamin (vitamin B-12) 500 1,000 mcg sublingual DAILY 02/15/24 11/03/24 mcg sublingual tablet pantoprazole 40 mg tablet,delayed 40 mg PO DAILY 02/15/24 11/03/24 release fenofibrate 160 mg tablet 160 mg PO DAILY 03/29/24 11/03/24 testosterone cypionate 200 mg/mL 100 mg (0.5 mL) IM Q2W #10 mL 08/02/24 11/03/24 intramuscular oil erenumab-aooe 140 mg/mL 140 mg subcut QMONTH #1 mL 08/24/24 11/03/24 subcutaneous auto-injector (Aimovig Autoinjector) ubrogepant 100 mg tablet (Ubrelvy) 100 mg PO ONCE #14 tabs 08/24/24 11/03/24 valbenazine 40 mg capsule 40 mg PO BID 08/24/24 11/03/24 (Ingrezza) needle (disp) 18 G 18 gauge x 1 #6 ea 09/19/24 11/03/24 1/2 (BD Regular Bevel [place]) atorvastatin 40 mg tablet 40 mg PO DAILY 11/01/24 11/03/24 aspirin 81 mg capsule 81 mg PO DAILY #180 caps 11/03/24 Previous Rx's ?Medication ?Instructions ?Recorded acetaminophen 500 mg tablet 500 mg PO Q6H PRN PRN pain #60 tabs 10/11/19 ibuprofen 600 mg tablet 600 mg PO Q8H PRN PRN pain #60 tabs 10/11/19 syringe (disposable) 5 mL (BD #100 ea 08/03/23 Luer-Kayla Syringe) safety needles 25 gauge x 1 1/2 #6 ea 12/08/23 (BD Eclipse Luer-Kayla) testosterone cypionate 200 mg/mL 100 mg (0.5 mL) IM Q2W #10 mL 08/02/24 intramuscular oil erenumab-aooe 140 mg/mL 140 mg subcut QMONTH #1 mL 08/24/24 subcutaneous auto-injector (Aimovig Autoinjector) ubrogepant 100 mg tablet (Ubrelvy) 100 mg PO ONCE #14 tabs 08/24/24 needle (disp) 18 G 18 gauge x 1 #6 ea 09/19/24 1/2 (BD Regular Bevel [place]) aspirin 81 mg capsule 81 mg PO DAILY #180 caps 11/03/24 Allergies Allergy/AdvReac Type Severity Reaction Status Date / Time Penicillins Allergy Severe Anaphylaxsis, Verified 11/03/24 19:14 RASH vancomycin Allergy Severe Skin Rash Verified 11/03/24 19:14 latex Allergy Intermediate hives with Verified 11/03/24 19:14 latex powdered gloves General Stated Complaint: Dizzy/Sync GLO: 3 Course Vital Signs Vital signs: Vital Signs Temperature 37.1 C 11/03/24 19:12 Pulse 70 11/03/24 19:12 Respiratory Rate 18 11/03/24 19:12 Blood Pressure 149/97 H 11/03/24 19:12 Pulse Oximetry 98 11/03/24 19:12 Temperature 37.1 C 11/03/24 19:12 Pulse 70 11/03/24 19:12 Respiratory Rate 18 11/03/24 19:12 Blood Pressure 149/97 H 11/03/24 19:12 Pulse Oximetry 98 11/03/24 19:12 Pain Level 0 11/03/24 19:12 PFSH All Active Problems (Updated 11/03/24 @ 23:37 by Sahil Barnes MD) Vertigo (Acute) Right wrist pain (Acute) Tremor of right hand (Acute) Spell of abnormal behavior (Acute) Tremor (Acute) Migraine headache without aura (Acute) Status migrainosus (Acute) Sessile serrated polyp of colon (Acute ~05/06/22) Internal derangement of right knee (Acute) Mild cognitive impairment (Acute) Vertigo (Acute) Odontalgia (Acute) Right ankle sprain (Acute) Suicidal ideation (Acute) Major depression (Chronic) Depression (Chronic) Right carpal tunnel syndrome (Acute) Migraine headache with aura (Acute) Ulnar neuropathy of right upper extremity (Acute) Carpal tunnel syndrome on both sides (Acute) Peripheral neuropathy (Acute) Acute stress reaction (Acute) Premature ejaculation (Acute) Hypogonadism in male (Acute) Gastritis (Acute) Esophagitis (Acute) Colorectal polyp detected on colonoscopy (Acute) Tubular adenoma in 2021 Abdominal pain (Acute) Current visit - YES Arthritis of right acromioclavicular joint (Acute 11/05/16) Chronic headaches (Acute) Medical History Hearing loss Hydrocephalus associated with congenital aqueduct stenosis Memory impairment Seizures pt. states last seizures was when he was a kid Persistent headaches CRI (chronic renal insufficiency) Cognitive developmental delay Pseudoseizures Hypogonadism Exotropia of right eye congenital Asymptomatic microscopic hematuria Tubular adenoma of colon History of head injury Per pt. 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 is patent Surgical History History of colonoscopy with polypectomy (~05/06/22) Hx of shoulder surgery Hx of colonoscopy (~10/2021) S/P carpal tunnel release right S/P cholecystectomy Intracranial shunt with several revisions Per pt. is patent Social History Smoking/Tobacco Use Status: Never Smoking risk assessment performed?: Yes Alcohol Intake: never Drug use: Never Substance use type: does not use Household members: spouse and children Number of Children: 3 current occupation: [employer] Current gender identity: male What is your relationship status?: Panel score (0-1 are the most socially isolated patients): 1 Seatbelt use: always Do you feel safe at home: Yes Do you feel safe in your relationship?: Yes
[2024-11-03 21:02] LABS: Abs Immature Grans 0.04 10^3/uL (0.0-0.06); HCT 48.1 % (40.0-50.0); HGB 16.1 g/dL (13.5-17.5); Immature Grans % 0.4 %; MCH 29.2 pg (27.0-33.0); MCHC 33.5 % (32.0-36.0); MCV 87 fL (80-95); MPV 9.7 fL (8.0-11.0); Platelet Count 270 10^3/uL (130-400); RBC 5.52 10^6/uL (4.36-5.78); RDW 12.2 % (11.8-14.1); RDW-SD 39.1 fL; WBC 11.36 10^3/uL (4.4-10.8)
[2024-11-03] MEDS: Normal Saline 1,000 ML 1000 ML IV (21:03)
[2024-11-03] MEDS: Droperidol 5 MG/2 ML VIAL 2.5 MG IVP (21:04)
[2024-11-03] MEDS: ACETAMINOPHEN 1,000 MG/100 ML BAG 400 MG IVPB (21:04)
--- NOTE | 2024-11-03 21:09 | DI.VRAD_ITS ---
PROCEDURE INFORMATION: Exam: XR Chest Exam date and time: 11/03/2024 8:14 PM Age: 53 years old Clinical indication: Other: Dizziness; Prior surgery; Surgery date: 6+ months; Surgery type: Shunt TECHNIQUE: Imaging protocol: Radiologic exam of the chest. Views: 1 view. COMPARISON: No relevant prior studies available. FINDINGS: Tubes, catheters and devices: There is a discontinuous right-sided ventriculoperitoneal shunt catheter. There is a continuous left ventriculoperitoneal shunt catheter which is coiled over the left lung. The distal aspect is not well characterized but is likely projected over the upper abdomen. Lungs: The lungs are clear. No consolidative radiopacities. Pleural spaces: No pleural effusion. No pneumothorax. Heart/Mediastinum: The heart is normal size. Bones/joints: Unremarkable. IMPRESSION: No acute cardiopulmonary findings. Dictated and Authenticated by: Linsey Rodriguez MD. Orderin Cameron Baxter MD
[2024-11-03 21:44] LABS: ALT 32 U/L (16-63); AST 14 U/L (15-37); Albumin 3.6 g/dL (3.4-5.0); Alkaline Phosphatase 50 U/L (46-116); Anion Gap 6.6 mmol/L (3-11); BUN 15 mg/dL (7-18); Bilirubin, Total 0.4 mg/dL (0.2-1.0); CO2 26.4 mmol/L (21.0-32.0); Calcium 8.9 mg/dL (8.5-10.1); Chloride 106 mmol/L (98-107); Estimated GFR 81.28 (mL/min/1.73m2); Glucose 134 mg/dL (74-106); Potassium 3.8 mmol/L (3.5-5.1); Sodium 139 mmol/L (136-145); Total Protein 7.0 g/dL (6.4-8.2); Troponin I 4 ng/L (<or=76)
[2024-11-03] MEDS: Omnipaque 350 MG/ML 100 ML BTL IJ (21:58)
[2024-11-03] MEDS: Normal Saline - Diluent 50 ML VIAL IJ (21:58)
[2024-11-03] MEDS: Normal Saline Flush 10 ML SYR IVP (21:59)
--- NOTE | 2024-11-03 22:02 | DI.CT_ITS ---
Exam(s) CT BRAIN NECK CTA EXAM: CT BRAIN NECK CTA CLINICAL HISTORY: dizziness. TECHNIQUE: Imaging Protocol: Axial CT angiography was performed with multi- slice acquisition and multi-planar and/or 3D reconstructions. CONTRAST MATERIAL: Intravenous: Omnipaque 350 Contrast volume:70 mL COMPARISON: CT CT HEAD WO from 06/06/[address] HEAD WO from 11/01/2024 FINDINGS: CTA Neck W: Aortic arch anatomy: The aortic arch anatomy is conventional and there is no significant stenosis at the origin of the great vessels off of the aortic arch. No intimal flap evident. Anterior circulation: Both common carotid arteries ascend with normal luminal diameters. At the level the carotid bulbs and proximal internal carotid arteries there is no significant plaque nor stenosis evident. Also no evidence of dissection Internal carotid arteries in the upper neck and skull base are patent. Posterior circulation: Both vertebral arteries originate in conventional fashion off of the subclavian arteries and there is no obvious stenosis at the origin of the vertebral arteries. Both vertebral arteries exhibit normal luminal diameters within the foramen transversarium. The left vertebral artery is dominant. Both vertebral arteries contribute to the formation of the basilar artery at the skull base. CTA Brain W: Anterior circulation: Both internal carotid arteries are patent in the skull base-carotid canals as well as within the cavernous sinuses. The supraclinoid aspects of the ICAs are patent. Both A1 segments are patent as are the anterior cerebral arteries and there is no evidence of aneurysm at the level of the anterior communicating artery. Both middle cerebral arteries are patent with no evidence of significant stenosis nor intraluminal thrombus. There also no aneurysms of these vessels. Posterior circulation: Basilar artery ascends without significant stenosis. Distally gives off superior cerebellar arteries and above this level terminates as patent left posterior cerebral artery. There is a patent right posterior cerebral artery which is fed by posterior communicating artery on the right side of the circ [id number]. There is no evidence of aneurysm at the tip of the basilar artery nor elsewhere in the [id number]. CT BRAIN: There is no evidence of intracranial hemorrhage, new mass effect, or shift of midline structures. There are no extra-axial fluid collections. Ventricles are not enlarged or shifted. There are no ring enhancing lesions in the brain and no abnormal meningeal enhancement. Area of abnormal hypodensity in the right frontal lobe is unchanged from recent studies and is along the tract of the recently removed right frontal shunt. The present shunt is unchanged in position from the recent scan of 11 01 24 and enters from the left parietal region with its distal tip just across the midline. Unchanged from previous. There is no hydrocephalus. Fluid levels are again noted in the maxillary sinuses consistent with sinusitis. Sphenoid and frontal sinuses are clear although there is some opacification of ethmoidal air cells bilaterally. There are no mastoid effusions evident. IMPRESSION: 1. Patent carotid arteries in the neck. No hemodynamically significant stenosis. 2. Patent vertebral arteries. No stenosis thrombosis nor dissection 3. Patent intracranial arteries. 4. Stable hypodense white matter area in the right frontal lobe which is along the course of the recently removed right frontal entrance shunt. The more recently placed left parietal shunt is unchanged in position and there is no significant abnormality in the brain along the course of the shunt and no hydrocephalus evident. Preliminary virtual Radiology report reviewed RADIATION DOSE DELIVERED: 2,060.3mGy.cm Total DLP DATA REPOSITORY: All CT scans at this facility are submitted to the National Radiology Data Registry (NRDR) Dose Index Registry (DIR) with the [employer] (ACR). RADIATION OPTIMIZATION: All CT scans at this facility use at least one of these dose optimization techniques: automated exposure control; mA and/or kV adjustment per patient size (includes targeted exams where dose is matched to clinical indication); or iterative reconstruction.
--- NOTE | 2024-11-03 22:26 | DI.VRAD_ITS ---
PROCEDURE INFORMATION: Exam: CTA Head Without And With Contrast, Arteriography Exam date and time: 11/03/2024 9:50 PM Age: 53 years old Clinical indication: Dizziness and giddiness; Prior surgery; Surgery date: 6+ months; Surgery type: Shunt TECHNIQUE: Imaging protocol: Computed tomographic angiography of the head without and with contrast. Exam focused on the arteries. 3D rendering (Not supervised by radiologist): MIP and/or 3D reconstructed images were created by the technologist. Radiation optimization: All CT scans at this facility use at least one of these dose optimization techniques: automated exposure control; mA and/or kV adjustment per patient size (includes targeted exams where dose is matched to clinical indication); or iterative reconstruction. Contrast material: [id number]; Contrast volume: 70 ml; Contrast route: INTRAVENOUS (IV); COMPARISON: CT BRAIN NECK CTA 11/03/2024 8:09 PM FINDINGS: Tubes, catheters and devices: A left ventriculostomy catheter is present, the tip of which is present at midline at the septum pellucidum. A ventriculostomy shunt catheter is noted along the subcutaneous tissues of the left neck. The catheter appears continuous where visualized. ANTERIOR CIRCULATION: Right internal carotid artery: Intracranial segment is patent with no significant stenosis or occlusion. No aneurysm. Right middle cerebral artery: No occlusion or significant stenosis. No aneurysm. Right anterior cerebral artery: No occlusion or significant stenosis. No aneurysm. Left internal carotid artery: Intracranial segment is patent with no significant stenosis. No aneurysm. Left middle cerebral artery: No occlusion or significant stenosis. No aneurysm. Left anterior cerebral artery: No occlusion or significant stenosis. No aneurysm. POSTERIOR CIRCULATION: Right vertebral artery: No occlusion or significant stenosis. No aneurysm. Left vertebral artery: No occlusion or significant stenosis. No aneurysm. Basilar artery: No occlusion or significant stenosis. No aneurysm. Right posterior cerebral artery: No occlusion or significant stenosis. No aneurysm. Left posterior cerebral artery: No occlusion or significant stenosis. No aneurysm. Veins: Trace gas is noted at the foramen magnum which may be associated with some gas injected through the venous system at the time of contrast administration. Trace gas is also present within the right internal jugular vein. HEAD: Brain: No acute intracranial hemorrhage or mass lesions. No midline shift. Normal vu-white differentiation. Encephalomalacia is redemonstrated within the right frontal lobe unchanged from the study dated 05/19/2024. Cerebral ventricles: Normal. No ventriculomegaly. Bones: Prior right craniotomy noted. Paranasal sinuses: Fluid and gas is layered in the bilateral maxillary sinuses. There is ethmoid air cell mucosal thickening. The other paranasal sinuses are clear. Mastoid air cells: Visualized mastoids are normal. No mastoid effusion. Soft tissues: Unremarkable. IMPRESSION: 1. No stenosis, occlusion, or aneurysm. 2. No acute intracranial findings. Specifically, no hydronephrosis. 3. Findings suspicious for acute maxillary sinusitis. PROCEDURE INFORMATION: Exam: CTA Neck Without And With Contrast Exam date and time: 11/03/2024 9:50 PM Age: 53 years old Clinical indication: Dizziness and giddiness; Prior surgery; Surgery date: 6+ months; Surgery type: Shunt TECHNIQUE: Imaging protocol: Computed tomographic angiography of the neck without and with contrast. Exam focused on the cervical segments of the vasculature. 3D rendering (Not supervised by radiologist): MIP and/or 3D reconstructed images were created by the technologist. Radiation optimization: All CT scans at this facility use at least one of these dose optimization techniques: automated exposure control; mA and/or kV adjustment per patient size (includes targeted exams where dose is matched to clinical indication); or iterative reconstruction. Contrast material: [id number]; Contrast volume: 70 ml; Contrast route: INTRAVENOUS (IV); COMPARISON: CT BRAIN NECK CTA 11/03/2024 8:09 PM FINDINGS: Right common carotid artery: No stenosis. No dissection or occlusion. Right internal carotid artery: No stenosis of the extracranial segment. No dissection or occlusion. Right external carotid artery: No occlusion or stenosis of the origin. Left common carotid artery: No stenosis. No dissection or occlusion. Left internal carotid artery: No stenosis of the extracranial segment. No dissection or occlusion. Left external carotid artery: No occlusion or stenosis of the origin. Right vertebral artery: No stenosis. No dissection or occlusion. Left vertebral artery: No stenosis. No dissection or occlusion. Soft tissues: Normal. No significant soft tissue swelling. Bones/joints: No acute fracture. IMPRESSION: No stenosis, occlusion, or aneurysm. REFERENCES: NASCET CRITERIA. The degree of stenosis in the cervical segment of the internal carotid artery is based on NASCET criteria. Normal is no stenosis. Mild is less than 50% stenosis. Moderate is 50-69% stenosis. Severe is 70% to 99% stenosis. Total occlusion is no detectable patent lumen. Dictated and Authenticated by: Linsey Rodriguez MD. Orderin Cameron Baxter MD
[2024-11-03] MEDS: MAGNESIUM SULFATE 2 GM/50 ML BAG IV_INF (22:36)
[2024-11-03 23:11] LABS: Troponin I 4 ng/L (<or=76)
[2024-11-03] MEDS: Aspirin 81 MG CHEW PO (23:58)
[2024-11-04] VITALS: BP 113/72; PULSE 60; RESP 15; O2SAT 96
== END 2024-11-04 00:02 | disposition left against medical advice (07) ==
PROVIDERS: Emergency Provider General Practice; PCP Physician Assistant
DX: R42 Dizziness and giddiness (principal)
CPT/HCPCS: 70496; 70498; 80053; 93005; 96365; 96366; 96367; 96375; 99285; 71045; 84484; 85025; 93010; 99284; J0131; J1790; J3475; J3490

== ENCOUNTER 2024-11-07 01:42 | Outpatient (CLI) | payer MEDICARE, MEDICAID, SELFPAY ==
[2024-11-07 10:57] LABS: HCT 48.7 % (40.0-50.0); HGB 16.3 g/dL (13.5-17.5); MCH 28.8 pg (27.0-33.0); MCHC 33.5 % (32.0-36.0); MCV 86 fL (80-95); MPV 10.1 fL (8.0-11.0); Platelet Count 274 10^3/uL (130-400); RBC 5.65 10^6/uL (4.36-5.78); RDW 12.6 % (11.8-14.1); RDW-SD 39.2 fL; WBC 11.24 10^3/uL (4.4-10.8)
[2024-11-07 17:42] LABS: PSA, Screening 0.5 ng/mL (<=3.5)
== END 2024-11-07 01:43 | disposition home or self-care (01) ==
LOC: LBO 01:42
PROVIDERS: PCP Physician Assistant; Visit Provider Nurse Practitioner Gerontology
DX: E29.1 Testicular hypofunction (principal); R39.9 Unspecified symptoms and signs involving the genitourinary system
CPT/HCPCS: 36415; 84153; 84403; 85027

== ENCOUNTER 2024-11-09 16:13 | Outpatient (REF) | payer MEDICARE, MEDICAID, SELFPAY ==
[2024-11-09 15:47] LABS: Calculated LDL 60 mg/dL (<100); Cholesterol 125 mg/dL (<200); HDL Cholesterol 30 mg/dL (>or=40); Triglyceride 177 mg/dL (<150)
== END 2024-11-09 16:14 | disposition home or self-care (01) ==
LOC: NCHCN 16:13
PROVIDERS: PCP Physician Assistant; Visit Provider Physician Assistant
DX: E78.5 Hyperlipidemia, unspecified (principal)
CPT/HCPCS: 80061; 84403

== ENCOUNTER → 2024-11-29 08:19 | Outpatient (BNVA) | payer MEDICARE, MEDICAID, SELFPAY | PROVIDERS: PCP Physician Assistant; Visit Provider Nurse Practitioner Gerontology | DX: E29.1 Testicular hypofunction (principal); R39.9 Unspecified symptoms and signs involving the genitourinary system | CPT/HCPCS: 99213 ==

== ENCOUNTER 2024-12-21 10:25 | Emergency (ER) | payer MEDICARE, MEDICAID, SELFPAY ==
[2024-12-21 11:02] VITALS: BP 147/91; PULSE 71; RESP 18; TEMP 36.7; O2SAT 96
--- NOTE | 2024-12-21 11:50 | W.ED.GENAD ---
Discharge Plan Discharge Details Chief Complaint: Headache Primary Care Provider: Peter Lebron ED Provider: Errol Lombardi [place] Meds and New Rx's Prescriptions: Continued cholecalciferol (vitamin D3) 50 mcg (2,000 unit) capsule 50 mcg PO DAILY fenofibrate 160 mg tablet 160 mg PO DAILY Ubrelvy 100 mg tablet 100 mg PO ONCE Qty: 14 3RF Rx Instructions: as a single dose; may repeat once in >=2 hours after first dose if needed Aimovig Autoinjector 140 mg/mL auto-injector 140 mg subcut QMONTH Qty: 1 11RF Ingrezza 40 mg capsule 40 mg PO DAILY (DME) BD Eclipse Luer-Kayla 25 gauge x 1 1/2 needle See Rx Instructions .ROUTE .COMPLEX Qty: 6 0RF Dose Instruction: USE ONE NEEDLE TO INJECT TESTOSTERONE EVERY 2 WEEKS #2/MONTH. Rx Instructions: USE ONE NEEDLE TO INJECT TESTOSTERONE EVERY 2 WEEKS #2/MONTH. pantoprazole 40 mg tablet,delayed release (DR/EC) 40 mg PO DAILY cyanocobalamin (vitamin B-12) 500 mcg tablet, sublingual 1,000 mcg sublingual DAILY (DME) syringe (disposable) 5 mL syringe See Rx Instructions .ROUTE .COMPLEX Qty: 6 0RF Dose Instruction: USE WITH NEEDLE FOR TESTOSTERONE INJECT [id number] #2/MO Rx Instructions: USE WITH NEEDLE FOR TESTOSTERONE INJECT [id number] #2/MO testosterone cypionate 200 mg/mL oil 100 mg IM Q2W Qty: 10 0RF Rx Instructions: multi-use vial Take only 0.5ml every 2 weeks (DME) BD Regular Bevel [place] 18 gauge x 1 1/2 needle See Rx Instructions .ROUTE .COMPLEX Qty: 6 0RF Dose Instruction: USE ONE NEEDLE TO DRAW UP TESTOSTERONE EVERY 2 WEEKS. #2/MONTH Rx Instructions: USE ONE NEEDLE TO DRAW UP TESTOSTERONE EVERY 2 WEEKS. #2/MONTH levothyroxine 25 mcg tablet 25 mcg PO DAILY acetaminophen 500 mg tablet 500 mg PO Q6H PRN PRN (Reason: pain) Qty: 60 3RF ibuprofen 600 mg tablet 600 mg PO Q8H PRN PRN (Reason: pain) Qty: 60 0RF atorvastatin 40 mg tablet 40 mg PO DAILY aspirin 81 mg capsule 81 mg PO DAILY Qty: 180 0RF HPI General Date/Time Provider Initiated Documentation: 10/29/25 11:50. HPI Narrative: MDM This is an overall well-appearing normothermic and nontachycardic 54-year-old male with history of migraines and [employer] shunt with headache concerning for possibility of shunt malfunction for which patient underwent CT head which was reassuring. Shunt series showed no acute processes. Patient is not altered to suggest encephalitis. Headache was not sudden in onset so not suspicious for subarachnoid hemorrhage so I did not feel patient required an angiogram. No recent chiropractic manipulation to suggest increased risk for cervical arterial dissection. Patient is not markedly hypertensive to suggest increased risk for reversible cerbral vasoconstriction syndrome. Patient has not been vomiting to suggest increased risk for subdural empyema. Patient is on testosterone however given shunt my suspicion is lower for cerebral venous sinus thrombosis. No generator exposure to suggest increased risk for car monoxide toxicity. No tonic-clonic activity to suggest seizures and indication for EEG. Patient has disconjugate gaze which is reportedly baseline. In the absence of any focal neurological deficits I did not feel patient required an MRI. Attempted treatment with acetaminophen and and metoclopramide in addition to steroids. Patient's headache transiently felt improved. He intermittently had some nausea. He was referred by neurology I completed a teleneuro consult. He was having no chest pain to suggest ACS nor dissection. HPI This is a 54-year-old male history of [employer] shunt right emergency department via private vehicle with his mother in the setting of headache for the past 3 days. He has been attempting to treat symptoms with migraine medications but these have not improved his symptoms. He noted that his head was initially frontal and subsequently spread to the top of his head. Denies any recent chiropractic manipulation. No recent generator exposure. No trauma to head. Headache was gradual in onset. Patient has occasionally been nauseous but has not been vomiting. Denies chest pain shortness of breath dysuria and frequency. Exam General: Well-appearing in no acute distress speaking in complete sentences. Head: Normocephalic, atraumatic. Eye: Disconjugate extraocular eye movements. No afferent pupillary defect. No conjunctival injection. No scleral icterus. Ear, nose, mouth, throat: Grossly normal inspection. Normal voice, handling secretions normally. Neck: Trachea midline. Cardiovascular: Well-perfused distal extremities. Respiratory: Nonlabored respiration. Gastrointestinal: Nondistended abdomen. Soft. Nontender. No rebound. No guarding. Musculoskeletal: No edema. Moving all 4 extremities spontaneously. Skin: Normal for age and race, grossly normal temperature and turgor. No acute rash. Neurologic: Alert and appropriate, no apparent acute deficits. Moving all 4 extremities spontaneously. 5 out of 5 bilateral upper and lower extremity strength. Related Data Home Medications Medication Instructions Recorded Confirmed levothyroxine 25 mcg tablet 25 mcg PO DAILY 01/27/19 12/21/24 acetaminophen 500 mg tablet 500 mg PO Q6H PRN PRN pain #60 tabs 10/11/19 12/21/24 ibuprofen 600 mg tablet 600 mg PO Q8H PRN PRN pain #60 tabs 10/11/19 12/21/24 cholecalciferol (vitamin D3) 50 50 mcg PO DAILY 06/04/22 12/21/24 mcg (2,000 unit) capsule safety needles 25 gauge x 1 1/2 #6 ea 12/08/23 12/21/24 (BD Eclipse Luer-Kayla) cyanocobalamin (vitamin B-12) 500 1,000 mcg sublingual DAILY 02/15/24 12/21/24 mcg sublingual tablet pantoprazole 40 mg tablet,delayed 40 mg PO DAILY 02/15/24 12/21/24 release fenofibrate 160 mg tablet 160 mg PO DAILY 03/29/24 12/21/24 erenumab-aooe 140 mg/mL 140 mg subcut QMONTH #1 mL 08/24/24 12/21/24 subcutaneous auto-injector (Aimovig Autoinjector) ubrogepant 100 mg tablet (Ubrelvy) 100 mg PO ONCE #14 tabs 08/24/24 12/21/24 atorvastatin 40 mg tablet 40 mg PO DAILY 11/01/24 12/21/24 aspirin 81 mg capsule 81 mg PO DAILY #180 caps 11/03/24 12/21/24 syringe (disposable) 5 mL #6 ea 11/07/24 12/21/24 testosterone cypionate 200 mg/mL 100 mg (0.5 mL) IM Q2W #10 mL 11/14/24 12/21/24 intramuscular oil valbenazine 40 mg capsule 40 mg PO DAILY 11/29/24 12/21/24 (Ingrezza) needle (disp) 18 G 18 gauge x 1 #6 ea 12/12/24 12/21/24 1/2 (BD Regular Bevel [place]) Previous Rx's Medication Instructions Recorded acetaminophen 500 mg tablet 500 mg PO Q6H PRN PRN pain #60 tabs 10/11/19 ibuprofen 600 mg tablet 600 mg PO Q8H PRN PRN pain #60 tabs 10/11/19 safety needles 25 gauge x 1 1/2 #6 ea 12/08/23 (BD Eclipse Luer-Kayla) erenumab-aooe 140 mg/mL 140 mg subcut QMONTH #1 mL 08/24/24 subcutaneous auto-injector (Aimovig Autoinjector) ubrogepant 100 mg tablet (Ubrelvy) 100 mg PO ONCE #14 tabs 08/24/24 aspirin 81 mg capsule 81 mg PO DAILY #180 caps 11/03/24 syringe (disposable) 5 mL #6 ea 11/07/24 testosterone cypionate 200 mg/mL 100 mg (0.5 mL) IM Q2W #10 mL 11/14/24 intramuscular oil needle (disp) 18 G 18 gauge x 1 #6 ea 12/12/24 12 (BD Regular Bevel [place]) Allergies Allergy/AdvReac Type Severity Reaction Status Date / Time Penicillins Allergy Severe Anaphylaxsis, Verified 12/21/24 11:05 RASH vancomycin Allergy Severe Skin Rash Verified 12/21/24 11:05 latex Allergy Intermediate hives with Verified 12/21/24 11:05 latex powdered gloves General Stated Complaint: Headache GLO: 3 Course Vital Signs Vital signs: Vital Signs Temperature 36.7 C 12/21/24 11:02 Pulse 71 12/21/24 11:02 Respiratory Rate 18 12/21/24 11:02 Blood Pressure 147/91 H 12/21/24 11:02 Pulse Oximetry 96 12/21/24 11:02 Temperature 36.7 C 12/21/24 11:02 Temperature Source Oral 12/21/24 11:02 Pulse 71 12/21/24 11:02 Respiratory Rate 18 12/21/24 11:02 Blood Pressure 147/91 H 12/21/24 11:02 Blood Pressure Position Sitting 12/21/24 11:02 Pulse Oximetry 96 12/21/24 11:02 Oxygen Delivery Method Room Air 12/21/24 11:02 Oxygen Flow Rate 0 12/21/24 11:02 Pain Level 8 12/21/24 11:02 PFSH All Active Problems (Updated 12/05/24 @ 00:03 by HEMALATHA ARRIAGA) Spell of abnormal behavior (Acute) Tremor (Acute) Migraine headache without aura (Acute) Status migrainosus (Acute) Sessile serrated polyp of colon (Acute ~05/06/22) Internal derangement of right knee (Acute) Mild cognitive impairment (Acute) Vertigo (Acute) Odontalgia (Acute) Right ankle sprain (Acute) Suicidal ideation (Acute) Major depression (Chronic) Depression (Chronic) Right carpal tunnel syndrome (Acute) Migraine headache with aura (Acute) Ulnar neuropathy of right upper extremity (Acute) Carpal tunnel syndrome on both sides (Acute) Peripheral neuropathy (Acute) Acute stress reaction (Acute) Premature ejaculation (Acute) Hypogonadism in male (Acute) Gastritis (Acute) Esophagitis (Acute) Colorectal polyp detected on colonoscopy (Acute) Tubular adenoma in 2021 Abdominal pain (Acute) Current visit - YES Arthritis of right acromioclavicular joint (Acute 11/05/16) Chronic headaches (Acute) Medical History Hearing loss Hydrocephalus associated with congenital aqueduct stenosis Memory impairment Seizures pt. states last seizures was when he was a kid Persistent headaches CRI (chronic renal insufficiency) Cognitive developmental delay Pseudoseizures Hypogonadism Exotropia of right eye congenital Asymptomatic microscopic hematuria Tubular adenoma of colon History of head injury Per pt. 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 is patent Surgical History History of colonoscopy with polypectomy (~05/06/22) Hx of shoulder surgery Hx of colonoscopy (~10/2021) S/P carpal tunnel release right S/P cholecystectomy Intracranial shunt with several revisions Per pt. is patent Social History Smoking/Tobacco Use Status: Never Smoking risk assessment performed?: Yes Alcohol Intake: never Drug use: Never Substance use type: does not use Household members: spouse and children Number of Children: 3 current occupation: [employer] [place] Current gender identity: male What is your relationship status?: Panel score (0-1 are the most socially isolated patients): 1 Seatbelt use: always Do you feel safe at home: Yes Do you feel safe in your relationship?: Yes
--- NOTE | 2024-12-21 12:00 | DI.CT_ITS ---
Exam(s) CT HEAD WO EXAM: CT HEAD WO CLINICAL HISTORY: History of shunt headache. TECHNIQUE: Imaging Protocol: Axial computed tomography images with coronal and sagittal reformatted images were created and reviewed COMPARISON: CT CT HEAD WO from 05/09/[address] HEAD WO from 11/01/[address] BRAIN NECK CTA from 11/03/2024 FINDINGS: Ventricles and Extra axial spaces: The ventricular size is stable. The location of the ventriculoperitoneal shunt tubing is unchanged. Hemorrhage: None. Cerebral parenchyma: There are stable areas of encephalomalacia in the right frontal lobe. Midline shift: None. Brainstem/Cerebellum: Normal. Calvarium: There again seen several craniotomy defects. Visualized Paranasal sinuses/Mastoids: Clear. Soft Tissues: Unremarkable. IMPRESSION: 1. No acute intracranial process. 2. There has been no change in the ventriculoperitoneal shunt tubing location or ventricular size. RADIATION DOSE DELIVERED: 833.08mGy.cm Total DLP DATA REPOSITORY: All CT scans at this facility are submitted to the National Radiology Data Registry (NRDR) Dose Index Registry (DIR) with the [employer] (ACR). RADIATION OPTIMIZATION: All CT scans at this facility use at least one of these dose optimization techniques: automated exposure control; mA and/or kV adjustment per patient size (includes targeted exams where dose is matched to clinical indication); or iterative reconstruction.
--- NOTE | 2024-12-21 12:00 | DI.RAD_ITS ---
Exam(s) XR SHUNT SERIES EXAM: XR SHUNT SERIES CLINICAL HISTORY: History of shunt headache. TECHNIQUE: 2D digital imaging was performed. Six images were obtained. COMPARISON: CR,XR XR SHUNT SERIES from 11/01/2024 Findings: SKULL: [place] holes and craniotomy defects are present. No destructive osseous lesion seen. LUNGS: Clear. No pleural abnormality seen. HEART: Normal. MEDIASTINUM: Normal. BOWEL GAS PATTERN: Nondistended bowel loops. No air-fluid levels seen. ABNORMAL COLLECTIONS OF AIR: No abnormal collection of air. No pneumoperitoneum. CALCIFICATIONS: None. Surgical clips are seen in the abdomen. SHUNT CATHETER: Visualized portions of shunt catheter from the level of the skull to the level of the abdomen is continuous without evidence of kink or break. OTHER FINDINGS: None. IMPRESSION: 1. The patient has left-sided shunt appears unremarkable. There is no evidence of kinking or breaking of the shunt tubing. 2. No acute pulmonary findings. DATA REPOSITORY: RADIATION DOSE DELIVERED:
[2024-12-21 13:03] VITALS: BP 147/91; PULSE 71; RESP 18; TEMP 36.7; O2SAT 96
[2024-12-21] MEDS: METOCLOPRAMIDE 10 MG in Normal Saline 50 ML 200 MG IVPB (13:04)
[2024-12-21] MEDS: ACETAMINOPHEN 1,000 MG/100 ML BAG 400 MG IVPB (13:04)
[2024-12-21 13:16] LABS: Abs Immature Grans 0.03 10^3/uL (0.0-0.06); HCT 51.4 % (40.0-50.0); HGB 17.0 g/dL (13.5-17.5); Immature Grans % 0.3 %; MCH 29.4 pg (27.0-33.0); MCHC 33.1 % (32.0-36.0); MCV 89 fL (80-95); MPV 9.5 fL (8.0-11.0); Platelet Count 239 10^3/uL (130-400); RBC 5.79 10^6/uL (4.36-5.78); RDW 13.2 % (11.8-14.1); RDW-SD 42.7 fL; WBC 11.45 10^3/uL (4.4-10.8)
[2024-12-21] MEDS: MORPHine 4 MG/ML SYR IVP (13:46)
[2024-12-21] MEDS: Ondansetron 4 MG/2 ML VIAL (13:46)
[2024-12-21] MEDS: diazePAM 10 MG/2 ML SYR 2 MG IVP (14:10)
[2024-12-21] MEDS: Dexamethasone 4 MG/ML VIAL 8 MG IVP (14:29)
[2024-12-21 16:24] LABS: Anion Gap 10.3 mmol/L (3-11); BUN 10 mg/dL (7-18); CO2 24.7 mmol/L (21.0-32.0); Calcium 8.4 mg/dL (8.5-10.1); Chloride 104 mmol/L (98-107); Glucose 119 mg/dL (74-106); Potassium 3.4 mmol/L (3.5-5.1); Sodium 139 mmol/L (136-145)
--- NOTE | 2024-12-21 17:36 | W.EDPROG ---
Date of service: 12/21/24 Time of Service: 17:36 Medical Decision Making Patient signed out to me pending teleneurology consult, discussed with neurology on the phone who did not really have significant formal recommendations and did not feel he needed to be admitted or transferred and felt like this headache would likely run its course. They did advise we can trial a dose of IV Depakote. I discussed this with the patient and his family and they state they want to avoid using this as he has not tolerated medications like that in the past. After discussion with him we will trial Toradol. Patient feeling better after Toradol and IV fluids. He is stable for discharge he will follow-up with neurology, return precautions given. Discharge Plan Disposition Patient Disposition: Home Condition: Stable Discharge Details Clinical Impression: Headache Primary Care Provider: Peter Lebron ED Provider: Leighton Diaz Home Meds and New Rx's Prescriptions: Continued cholecalciferol (vitamin D3) 50 mcg (2,000 unit) capsule 50 mcg PO DAILY fenofibrate 160 mg tablet 160 mg PO DAILY Ubrelvy 100 mg tablet 100 mg PO ONCE Qty: 14 3RF Rx Instructions: as a single dose; may repeat once in >=2 hours after first dose if needed Aimovig Autoinjector 140 mg/mL auto-injector 140 mg subcut QMONTH Qty: 1 11RF Ingrezza 40 mg capsule 40 mg PO DAILY (DME) BD Eclipse Luer-Kayla 25 gauge x 1 1/2 needle See Rx Instructions .ROUTE .COMPLEX Qty: 6 0RF Dose Instruction: USE ONE NEEDLE TO INJECT TESTOSTERONE EVERY 2 WEEKS #2/MONTH. Rx Instructions: USE ONE NEEDLE TO INJECT TESTOSTERONE EVERY 2 WEEKS #2/MONTH. pantoprazole 40 mg tablet,delayed release (DR/EC) 40 mg PO DAILY cyanocobalamin (vitamin B-12) 500 mcg tablet, sublingual 1,000 mcg sublingual DAILY (DME) syringe (disposable) 5 mL syringe See Rx Instructions .ROUTE .COMPLEX Qty: 6 0RF Dose Instruction: USE WITH NEEDLE FOR TESTOSTERONE INJECT [id number] #2/MO Rx Instructions: USE WITH NEEDLE FOR TESTOSTERONE INJECT [id number] #2/MO testosterone cypionate 200 mg/mL oil 100 mg IM Q2W Qty: 10 0RF Rx Instructions: multi-use vial Take only 0.5ml every 2 weeks (DME) BD Regular Bevel [place] 18 gauge x 1 1/2 needle See Rx Instructions .ROUTE .COMPLEX Qty: 6 0RF Dose Instruction: USE ONE NEEDLE TO DRAW UP TESTOSTERONE EVERY 2 WEEKS. #2/MONTH Rx Instructions: USE ONE NEEDLE TO DRAW UP TESTOSTERONE EVERY 2 WEEKS. #2/MONTH levothyroxine 25 mcg tablet 25 mcg PO DAILY acetaminophen 500 mg tablet 500 mg PO Q6H PRN PRN (Reason: pain) Qty: 60 3RF ibuprofen 600 mg tablet 600 mg PO Q8H PRN PRN (Reason: pain) Qty: 60 0RF atorvastatin 40 mg tablet 40 mg PO DAILY aspirin 81 mg capsule 81 mg PO DAILY Qty: 180 0RF Discharge Instructions Additional Instructions: Your blood work and CAT scans did not show any concerning findings at this time. Follow-up with your neurology providers. If you feel more ill or develop new symptoms such as high fevers return to the emergency department for reevaluation.
[2024-12-21] MEDS: Ketorolac 15 MG/ML VIAL IVP (17:40)
[2024-12-21] MEDS: Normal Saline 1,000 ML 1000 ML IV (18:09)
== END 2024-12-21 19:24 | disposition home or self-care (01) ==
PROVIDERS: Emergency Medicine; Emergency Provider Emergency Medicine; PCP Physician Assistant
DX: R51.9 Headache, unspecified (principal)
CPT/HCPCS: 99284; 99285; 96375; 00123; 80048; 96361; 96365; 70360; 70450; 71045; 72050; 74018; 85025; J0131; J1100; J1885; J2270; J2405; J2765; J3360

== ENCOUNTER 2025-01-03 12:49 | Emergency (ER) | payer MEDICARE, MEDICAID, SELFPAY ==
[2025-01-03 12:51] VITALS: BP 119/89; PULSE 58; RESP 18; TEMP 37.2; O2SAT 97
[2025-01-03 13:00] VITALS: BP 119/89; PULSE 58; RESP 18; TEMP 37; O2SAT 97
--- NOTE | 2025-01-03 13:00 | DI.RAD_ITS ---
Exam(s) XR SHUNT SERIES EXAM: XR SHUNT SERIES CLINICAL HISTORY: headache; has shunt. TECHNIQUE: 2D digital imaging was performed. COMPARISON: CR XR SHUNT SERIES from 05/19/2024 CR XR SHUNT SERIES from 07/28/2024 CR,XR XR SHUNT SERIES from 11/01/2024 CR XR SHUNT SERIES from 12/21/2024 Findings: SKULL: Multiple gala holes noted. Current ventriculo peritoneal shunt is located at the left posterior parietal region. Stone appears unchanged in position from the prior exam. LUNGS: Clear. No pleural abnormality seen. HEART: Normal. MEDIASTINUM: Normal. BOWEL GAS PATTERN: Nondistended bowel loops. No air-fluid levels seen. ABNORMAL COLLECTIONS OF AIR: No abnormal collection of air. No pneumoperitoneum. CALCIFICATIONS: None. No radiopaque renal, ureteral, or bladder calcification. SHUNT CATHETER: Visualized portions of shunt catheter from the level of the skull to the level of the abdomen is continuous without evidence of kink or break. The distal end of the shunt again projects in the left upper quadrant, just below the diaphragm. Abandoned shunt tubing is noted on the right side of the neck, right side of the chest and abdomen. OTHER FINDINGS: None. IMPRESSION: 1. No change in positioning of ventriculoperitoneal shunt. The distal end of the current left-sided shunt projects in left upper quadrant, beneath the diaphragm. 2. Nonobstructive bowel gas pattern. 3. No acute pulmonary findings. DATA REPOSITORY: RADIATION DOSE DELIVERED:
--- NOTE | 2025-01-03 13:00 | DI.CT_ITS ---
Exam(s) CT HEAD WO EXAM: CT HEAD WO CLINICAL HISTORY: headache; has shunt many revisions. TECHNIQUE: Imaging Protocol: Axial computed tomography images with coronal and sagittal reformatted images were created and reviewed COMPARISON: CT CT HEAD WO from 12/21/2024 FINDINGS: Ventricles and Extra axial spaces: Ventriculoperitoneal shunt entering from the left parietal region and extending to the region of the 3rd ventricle. No change in the tracheal ir size. Ventricles are not enlarged. Hemorrhage: None. Cerebral parenchyma: No evidence of acute infarct or mass. Old areas of encephalomalacia noted in the bilateral frontal lobes, right greater than left. Midline shift: None. Brainstem/Cerebellum: Normal. Bones: No skull or facial fractures. Old bifrontal gala holes. Right temporal craniotomy. Left parietal gala hole where current shunt enters. Visualized Paranasal sinuses:Clear. Mastoids: Clear. Soft Tissues: Unremarkable. ORBITS: Unremarkable. PITUITARY: Not enlarged. IMPRESSION: No acute intracranial process.Stable appearance of ventricles and shunt without abnormal dilatation. Stable areas of bifrontal encephalomalacia. RADIATION DOSE DELIVERED: Total DLP DATA REPOSITORY: All CT scans at this facility are submitted to the National Radiology Data Registry (NRDR) Dose Index Registry (DIR) with the [employer] (A[employer]). RADIATION OPTIMIZATION: All CT scans at this facility use at least one of these dose optimization techniques: automated exposure control; mA and/or kV adjustment per patient size (includes targeted exams where dose is matched to clinical indication); or iterative reconstruction.
[2025-01-03] MEDS: Acetaminophen 500 MG TAB 1000 MG PO (14:06)
--- NOTE | 2025-01-03 15:04 | ED.GENADUL_ITS ---
Discharge Plan Disposition Patient Disposition: Home Condition: Stable Discharge Details Clinical Impression: Headache Primary Care Provider: Peter Lebron ED Provider: Andrew Duff Home Meds and New Rx's Prescriptions: New indomethacin 50 mg capsule 50 mg PO TID Qty: 30 0RF Rx Instructions: administer with food or milk Continued cholecalciferol (vitamin D3) 50 mcg (2,000 unit) capsule 50 mcg PO DAILY fenofibrate 160 mg tablet 160 mg PO DAILY Ubrelvy 100 mg tablet 100 mg PO ONCE Qty: 14 3RF Rx Instructions: as a single dose; may repeat once in >=2 hours after first dose if needed Aimovig Autoinjector 140 mg/mL auto-injector 140 mg subcut QMONTH Qty: 1 11RF Ingrezza 40 mg capsule 40 mg PO DAILY (DME) BD Eclipse Luer-Kayla 25 gauge x 1 1/2 needle See Rx Instructions .ROUTE .COMPLEX Qty: 6 0RF Dose Instruction: USE ONE NEEDLE TO INJECT TESTOSTERONE EVERY 2 WEEKS #2/MONTH. Rx Instructions: USE ONE NEEDLE TO INJECT TESTOSTERONE EVERY 2 WEEKS #2/MONTH. pantoprazole 40 mg tablet,delayed release (DR/EC) 40 mg PO DAILY cyanocobalamin (vitamin B-12) 500 mcg tablet, sublingual 1,000 mcg sublingual DAILY (DME) syringe (disposable) 5 mL syringe See Rx Instructions .ROUTE .COMPLEX Qty: 6 0RF Dose Instruction: USE WITH NEEDLE FOR TESTOSTERONE INJECT [id number] #2/MO Rx Instructions: USE WITH NEEDLE FOR TESTOSTERONE INJECT [id number] #2/MO testosterone cypionate 200 mg/mL oil 100 mg IM Q2W Qty: 10 0RF Rx Instructions: multi-use vial Take only 0.5ml every 2 weeks (DME) BD Regular Bevel Haverstraw 18 gauge x 1 1/2 needle See Rx Instructions .ROUTE .COMPLEX Qty: 6 0RF Dose Instruction: USE ONE NEEDLE TO DRAW UP TESTOSTERONE EVERY 2 WEEKS. #2/MONTH Rx Instructions: USE ONE NEEDLE TO DRAW UP TESTOSTERONE EVERY 2 WEEKS. #2/MONTH levothyroxine 25 mcg tablet 25 mcg PO DAILY acetaminophen 500 mg tablet 500 mg PO Q6H PRN PRN (Reason: pain) Qty: 60 3RF ibuprofen 600 mg tablet 600 mg PO Q8H PRN PRN (Reason: pain) Qty: 60 0RF atorvastatin 40 mg tablet 40 mg PO DAILY aspirin 81 mg capsule 81 mg PO DAILY Qty: 180 0RF Discharge Instructions Instructions: Indomethacin, Headache, Adult ED Additional Instructions: You were seen in the emergency department for your acute on chronic headaches ongoing for 1 week, your CT and shunt series are normal, we performed a teleneurology consult and they recommended we start indomethacin, take 50 mg 3 times per day, continue with your normal neurology and neurosurgery providers, please return for any worsening of his right arm tremor or any other emergent concerns. please have your cbc rechecked by your pcp next week to compare your hemoglobin and hematocrit levels Stand Alone Forms: Portal Information Referrals: Peter Lebron [Primary Care Provider, Medicine] Discharge Data Discharge Date/Time-TO BE ENTERED AT DEPARTURE: 01/03/25 18:26 HPI General Date/Time Provider Initiated Documentation: 01/03/25 12:56 . 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 Quality described as severe headache, no radiation to visual changes, nausea, vomiting, numbness/tingling, weakness, fever, neck stiffness. Severity is described as 8-9/10. Palliating factors include his at-home migraine medications are not working. Provoking factors include nothing specific. Patient not anticoagulated. Related Data Home Medications Medication Instructions Recorded Confirmed levothyroxine 25 mcg tablet 25 mcg PO DAILY 01/27/19 1 03/05/24 acetaminophen 500 mg tablet 500 mg PO Q6H PRN PRN pain #60 tabs 10/11/19 01/03/25 ibuprofen 600 mg tablet 600 mg PO Q8H PRN PRN pain # 60 tabs 10/11/19 01/03/25 cholecalciferol (vitamin D3) 50 50 mcg PO DAILY 01/03/25 mcg (2,000 unit) capsule safety needles 25 gauge x 1 /2 #6 ea 12/08/23 (BD Eclipse Luer-Kayla) cyanocobalamin (vitamin B-12) 500 1,000 mcg sublingual DAILY 02/15/24 01/03/25 mcg sublingual tablet pantoprazole 40 mg tablet,delayed 40 mg PO DAILY 02/1401/03/25 release fenofibrate 160 mg tablet 160 mg PO DAILY 03/29/2401/17 erenumab-aooe 140 mg/mL 140 mg subcut QMONTH #1 mL 0 08/24/24 01/03/25 subcutaneous auto-injector (Aimovig Autoinjector) ubrogepant 100 mg tablet (Ubrelvy) 100 mg PO ONCE #14 tabs 08/24/24 01/03/25 atorvastatin 40 mg tablet 40 mg PO DAILY 11/01/2412/24 aspirin 81 mg capsule 81 mg PO DAILY #180 caps 01/1701/03/25 syringe (disposable) 5 mL #6 ea 11/07/24 12/21/24 testosterone cypionate 200 mg/mL 100 mg (0.5 mL) IM Q2 W #10 mL 11/14/24 01/03/25 intramuscular oil valbenazine 40 mg capsule 40 mg PO DAILY 11/29/2412/24 (Ingrezza) needle (disp) 18 G 18 gauge x 1 #6 ea 12/12/24 5 1/2 (BD Regular Bevel Haverstraw) indomethacin 50 mg capsule 50 mg PO TID #30 caps 01/03 Previous Rx's Medication Instructions Recorded acetaminophen 500 mg tablet 500 mg PO Q6H PRN PRN pain #60 tabs 10/11/19 ibuprofen 600 mg tablet 600 mg PO Q8H PRN PRN pain # 60 tabs 10/11/19 safety needles 25 gauge x 1 1/2 #6 ea 12/08/23 (BD Eclipse Luer-Kayla) erenumab-aooe 140 mg/mL 140 mg subcut QMONTH #1 mL 0 08/24/24 subcutaneous auto-injector (Aimovig Autoinjector) ubrogepant 100 mg tablet (Ubrelvy) 100 mg PO ONCE #14 tabs 08/24/24 aspirin 81 mg capsule 81 mg PO DAILY #180 caps 01/17 syringe (disposable) 5 mL #6 ea 11/07/24 testosterone cypionate 200 mg/mL 100 mg (0.5 mL) IM Q2 W #10 mL 11/14/24 intramuscular oil needle (disp) 18 G 18 gauge x 1 #6 ea 12/12/242 (BD Regular Bevel Haverstraw) indomethacin 50 mg capsule 50 mg PO TID #30 caps 01/03 Allergies Allergy/AdvReac Type Severity Reaction Status Date / Time Penicillins Allergy Severe Anaphylaxsis, Verified 01/03/25 12:55 RASH vancomycin Allergy Severe Skin Rash Verified 01/03/25 12:55 latex Allergy Intermediate hives with Verified 01/03/25 12:55 latex powdered gloves General Stated Complaint: Headache GLO: 3 Review of Systems All systems reviewed & are unremarkable except as noted in HPI and below Exam Narrative Exam Narrative: GENERAL APPEARANCE: Well-nourished, non-toxic, awake and alert, atraumatic, moderate acute distress. SKIN: Warm, pink, dry, intact, without rashes/lesions/ulcerations. HEAD: Normocephalic, atraumatic, normal hair distribution for gender/age. EYES: Normal conjunctiva, no exudates on lids/lashes, has chronic amblyopia without any nystagmus on EOM testing, vision grossly intact, visual tony intact ENT: Nares patent, no circumoral cyanosis, no facial swelling NECK: Supple, trachea midline, painless cervical ROM, no nuchal rigidity LUNGS/CHEST: Lungs CTA bilaterally-no rhonchi/rales/wheeze diffusely, non- labored respirations, normal A/P diameter, symmetrical expansion, no chest wall deformity HEART (CV/PV): Regular rate and rhythm without murmur, no peripheral edema, no JVD. ABDOMEN: Soft, non-distended, no guarding. MSK: Normal ROM, no swelling/deformity to bilateral UEs or LEs, moving all extremities without weakness, no cyanosis, spine midline without tenderness, normal curvature. NEURO: Mental Status AAOx4 - alert to person, place, time, events No facial droop, no forehead involvement, no dysmetria with cerebellar testing Motor: No focal weakness - resting tremor R hand Sensory: sensation intact to light touch globally. Gait normal: patient ambulated without ataxia into ED room. PSYCH: euthymic, cooperative, pleasant, appropriate speech Course Vital Signs Vital signs: Vital Signs Temperature 37.2 C 01/03/25 12:51 Pulse 58 L 01/03/25 12:51 Respiratory Rate 18 01/03/25 12:51 Blood Pressure 119/89 01/03/25 12:51 Pulse Oximetry 97 01/03/25 12:51 Temperature 37.2 C 01/03/25 12:51 Temperature Source Temporal Artery Scan 01/03/25 12:51 Pulse 58 L 01/03/25 12:51 Respiratory Rate 18 01/03/25 12:51 Blood Pressure 119/89 01/03/25 12:51 Pulse Oximetry 97 01/03/25 12:51 Oxygen Delivery Method Room Air 01/03/25 12:51 Oxygen Flow Rate 0 01/03/25 12:51 Pain Level 5 01/03/25 14:06 Medical Decision Making This dictation utilizes [id number] dictation software and may contain unedited grammatical errors. 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 Quality described as severe headache, no radiation to visual changes, nausea, vomiting, numbness/tingling, weakness, fever, neck stiffness. Severity is described as 8- 9/10. Palliating factors include his at-home migraine medications are not working. Provoking factors include nothing specific. Patients' medical history: Hydrocephalus, seizure, persistent headache, developmental delay, epilepsy, peripheral neuropathy. Family and social history: noncontributory. Pertinent exam findings / vital signs include neuro intact, has resting tremor R hand, benign cardiopulmonary status. Differential / pathologies of concern include shunt malfunction, migraine, ICH. Diagnostic studies of: -CT head wo contrast, XR Shunt series, CRP/ESR, CBC, CMP Interventions of: -Ordered Tylenol and morphine as he had ibuprofen earlier today and his at-home ubrogepant. -Ordered [facility] Tele-neurology visit with his new tremor and for treatment recc's as he is already on advanced migraine medications-recommends Indocin which was prescribed ED Course/Assessment/Plan: 54-year-old male presents with a headache and history of RESEARCH PROGRAM COORDINATOR shunt with many revisions, has baseline headaches but states this is much worse. Is not respo nding to his migraine medications, CT head is negative and shunt series is shows everything is in place, laboratory workup is benign, telemetry neurology visit was performed with [facility] Dr. Arreguin, recommends some Indocin trial for headache relief, patient was comfortable trying this medication and they will return for any emergent concerns or neurologic changes Disposition of Headache. Patient verbalized understanding of the plan and return to ED criteria and engaged in shared decision making. Medical Records Medical records reviewed: Yes I reviewed the patient's medical records. Imaging Data Radiologic Study: Attestation: I personally reviewed and interpreted this imaging study as follows: Imaging: CT Scan Radiologist's impression: EXAM: CT HEAD WO CLINICAL HISTORY: headache; has shunt many revisions. TECHNIQUE: Imaging Protocol: Axial computed tomography images with coronal and sagittal reformatted images were created and reviewed COMPARISON: CT CT HEAD WO from 12/21/2024 FINDINGS: Ventricles and Extra axial spaces: Ventriculoperitoneal shunt entering from the left parietal region and extending to the region of the 3rd ventricle. No ch david in the tracheal ir size. Ventricles are not enlarged. Hemorrhage: None. Cerebral parenchyma: No evidence of acute infarct or mass. Old areas of encephalomalacia noted in the bilateral frontal lobes, right greater than left. Midline shift: None. Brainstem/Cerebellum: Normal. Bones: No skull or facial fractures. Old bifrontal gala holes. Right temporal craniotomy. Left parietal gala hole where current shunt enters. Visualized Paranasal sinuses:Clear. Mastoids: Clear. Soft Tissues: Unremarkable. ORBITS: Unremarkable. PITUITARY: Not enlarged. IMPRESSION: No acute intracranial process.Stable appearance of ventricles and shunt without abnormal dilatation. Stable areas of bifrontal encephalomalacia. Radiologic Study #2: Attestation: I personally reviewed and interpreted this imaging study as follows: Imaging: X-Ray Radiologist's impression: EXAM: XR SHUNT SERIES CLINICAL HISTORY: headache; has shunt. TECHNIQUE: 2D digital imaging was performed. COMPARISON: CR XR SHUNT SERIES from 05/19/2024 CR XR SHUNT SERIES from 07/28/2024 CR,XR XR SHUNT SERIES from 11/01/2024 CR XR SHUNT SERIES from 12/21/2024 Findings: SKULL: Multiple gala holes noted. Current ventriculo peritoneal shunt is located at the left posterior parietal region. Stone appears unchanged in position from the prior exam. LUNGS: Clear. No pleural abnormality seen. HEART: Normal. MEDIASTINUM: Normal. BOWEL GAS PATTERN: Nondistended bowel loops. No air-fluid levels seen. ABNORMAL COLLECTIONS OF AIR: No abnormal collection of air. No pneumoperitoneum. CALCIFICATIONS: None. No radiopaque renal, ureteral, or bladder calcification. SHUNT CATHETER: Visualized portions of shunt catheter from the level of the skull to the level of the abdomen is continuous without evidence of kink or break. The distal end of the shunt again projects in the left upper quadrant, just below the diaphragm. Abandoned shunt tubing is noted on the right side of the neck, right side of the chest and abdomen. OTHER FINDINGS: None. IMPRESSION: 1. No change in positioning of ventriculoperitoneal shunt. The distal end of the current left-sided shunt projects in left upper quadrant, beneath the diaphragm. 2. Nonobstructive bowel gas pattern. 3. No acute pulmonary findings. Lab Data Lab results reviewed: Yes I reviewed the patient's lab results. Labs: Laboratory Tests Range/Units 01/03/25 15:39 WBC (4.4-10.8) 10^3/uL 10.78 RBC (4.36-5.78) 10^6/uL 6.45 H Hgb (13.5-17.5) g/dL 19.1 H* Hct (40.0-50.0) % 57.2 H* MCV (80-95) fL 89 MCH (27.0-33.0) pg 29.6 MCHC (32.0-36.0) % 33.4 RDW (11.8-14.1) % 13.3 Plt Count (130-400) 10^3/uL 230 MPV (8.0-11.0) fL 9.3 Immature Gran % % 0.4 Neutrophils % % 68.0 Lymphocytes % % 24.1 Monocytes % % 5.8 Eosinophils % % 1.0 Basophils % % 0.7 Nucleated RBC % (0.0-0.3) % 0.0 Absolute Neutrophils (1.2-6.7) 10^3/uL 7.33 H Absolute Lymphocytes (1.2-3.4) 10^3/uL 2.60 Absolute Monocytes (0.1-0.8) 10^3/uL 0.62 Absolute Eosinophils (0.0-0.7) 10^3/uL 0.11 Absolute Basophils (0.0-0.2) 10^3/uL 0.08 RBC Morphology Normal ESR (0-20) mm/hr 12 Sodium (136-145) mmol/L 138 Potassium (3.5-5.1) mmol/L 4.8 Chloride (98-107) mmol/L 106 Carbon Dioxide (20.0-31.0) mmol/L 28.4 Anion Gap (3-11) mmol/L 3.6 BUN (9-23) mg/dL 12 Creatinine (0.73-1.18) mg/dL 1.2 H Est GFR (CKD-EPI 2020) (mL/min/1.73m2) 66.75 Glucose (74-106) mg/dL 91 Calcium (8.3-10.6) mg/dL 9.8 Total Bilirubin (0.2-1.2) mg/dL 1.60 H AST (<34) U/L 17 ALT (10-49) U/L 28 Alkaline Phosphatase (46-116) U/L 108 C-Reactive Protein (<=0.50) mg/dL 1.15 H Total Protein (5.7-8.2) g/dL 9.1 H Albumin (3.4-5.0) g/dL 5.5 H Path Cons Comment PFSH All Active Problems (Updated 01/03/25 @ 15:36 by MARVA Holguin) Headache (Acute) Headache (Acute) Spell of abnormal behavior (Acute) Tremor (Acute) Migraine headache without aura (Acute) Status migrainosus (Acute) Sessile serrated polyp of colon (Acute ~05/06/22) Internal derangement of right knee (Acute) Mild cognitive impairment (Acute) Vertigo (Acute) Odontalgia (Acute) Right ankle sprain (Acute) Suicidal ideation (Acute) Major depression (Chronic) Depression (Chronic) Right carpal tunnel syndrome (Acute) Migraine headache with aura (Acute) Ulnar neuropathy of right upper extremity (Acute) Carpal tunnel syndrome on both sides (Acute) Peripheral neuropathy (Acute) Acute stress reaction (Acute) Premature ejaculation (Acute) Hypogonadism in male (Acute) Gastritis (Acute) Esophagitis (Acute) Colorectal polyp detected on colonoscopy (Acute) Tubular adenoma in 2021 Abdominal pain (Acute) Current visit - YES Arthritis of right acromioclavicular joint (Acute 11/05/16) Chronic headaches (Acute) Medical History Hearing loss Hydrocephalus associated with congenital aqueduct stenosis Memory impairment Seizures pt. states last seizures was when he was a kid Persistent headaches CRI (chronic renal insufficiency) Cognitive developmental delay Pseudoseizures Hypogonadism Exotropia of right eye congenital Asymptomatic microscopic hematuria Tubular adenoma of colon History of head injury Per pt. 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 is patent Surgical History History of colonoscopy with polypectomy (~05/06/22) Hx of shoulder surgery Hx of colonoscopy (~10/2021) S/P carpal tunnel release right S/P cholecystectomy Intracranial shunt with several revisions Per pt. is patent Social History Smoking/Tobacco Use Status: Never Smoking risk assessment performed?: Yes Alcohol Intake: never Drug use: Never Substance use type: does not use Household members: spouse and children Number of Children: 3 current occupation: [employer] Current gender identity: male What is your relationship status?: Panel score (0-1 are the most socially isolated patients): 1 Seatbelt use: always Do you feel safe at home: Yes Do you feel safe in your relationship?: Yes
[2025-01-03 15:45] LABS: Abs Immature Grans 0.04 10^3/uL (0.0-0.06); Immature Grans % 0.4 %; MCH 29.6 pg (27.0-33.0); MCHC 33.4 % (32.0-36.0); MCV 89 fL (80-95); MPV 9.3 fL (8.0-11.0); Platelet Count 230 10^3/uL (130-400); RBC 6.45 10^6/uL (4.36-5.78); RDW 13.3 % (11.8-14.1); RDW-SD 41.6 fL; WBC 10.78 10^3/uL (4.4-10.8)
[2025-01-03 15:47] LABS: ESR 12 mm/hr (0-20)
[2025-01-03] MEDS: Normal Saline 1,000 ML 1000 ML IV (15:50)
[2025-01-03] MEDS: Indomethacin 25 MG CAP 50 MG PO ×2 (15:50→17:37)
[2025-01-03 16:05] LABS: ALT 28 U/L (10-49); AST 17 U/L (<34); Albumin 5.5 g/dL (3.4-5.0); Alkaline Phosphatase 108 U/L (46-116); Anion Gap 3.6 mmol/L (3-11); BUN 12 mg/dL (9-23); Bilirubin, Total 1.60 mg/dL (0.2-1.2); CO2 28.4 mmol/L (20.0-31.0); Calcium 9.8 mg/dL (8.3-10.6); Chloride 106 mmol/L (98-107); Glucose 91 mg/dL (74-106); Potassium 4.8 mmol/L (3.5-5.1); Sodium 138 mmol/L (136-145); Total Protein 9.1 g/dL (5.7-8.2)
[2025-01-03 16:21] LABS: HCT 57.2 % (40.0-50.0); HGB 19.1 g/dL (13.5-17.5); RBC Morphology Normal
[2025-01-03 16:37] LABS: C-Reactive Protein 1.15 mg/dL (<=0.50)
[2025-01-03 18:04] VITALS: BP 142/99; PULSE 61; RESP 18; TEMP 36.8; O2SAT 95
== END 2025-01-03 18:26 | disposition home or self-care (01) ==
PROVIDERS: Emergency Provider Physician Assistant; PCP Physician Assistant
DX: R51.9 Headache, unspecified (principal)
CPT/HCPCS: 99284; 99285; 36415; 80053; 85652; 96360; 70360; 70450; 71045; 72050; 74018; 85025; 86140

== ENCOUNTER → 2025-01-09 08:28 | Outpatient (BNVA) | payer MEDICARE, MEDICAID, SELFPAY | PROVIDERS: PCP Physician Assistant; Referring Provider Physician Assistant; Visit Provider Nurse Practitioner Adult Health | DX: G43.901 Migraine, unspecified, not intractable, with status migrainosus (principal); G43.009 Migraine without aura, not intractable, without status migrainosus | CPT/HCPCS: 99215 ==

== ENCOUNTER 2025-01-10 16:41 | Outpatient (REF) | payer MEDICARE, MEDICAID, SELFPAY ==
[2025-01-10 20:00] LABS: Abs Immature Grans 0.05 10^3/uL (0.0-0.06); HCT 53.8 % (40.0-50.0); HGB 17.9 g/dL (13.5-17.5); Immature Grans % 0.4 %; MCH 29.9 pg (27.0-33.0); MCHC 33.3 % (32.0-36.0); MCV 90 fL (80-95); MPV 10.2 fL (8.0-11.0); Platelet Count 266 10^3/uL (130-400); RBC 5.98 10^6/uL (4.36-5.78); RDW 12.8 % (11.8-14.1); RDW-SD 42.0 fL; WBC 12.81 10^3/uL (4.4-10.8)
[2025-01-10 20:18] LABS: C-Reactive Protein < 0.50 mg/dL (<=0.50)
== END 2025-01-10 16:42 | disposition home or self-care (01) ==
LOC: NCHCN 16:41
PROVIDERS: PCP Physician Assistant; Visit Provider Physician Assistant
DX: D75.1 Secondary polycythemia (principal)
CPT/HCPCS: 82668; 85025; 86140